=== PATIENT | female | born 1950 | race American Indian/Alaskan Native ===

== ENCOUNTER 2019-05-06 00:51 | Inpatient (IN) | payer MEDICARE ==
--- NOTE | 2019-05-06 02:07 | XRay Report ---
CHEST 1 VIEW INDICATION: cough COMPARISON: 06/23/2014 FINDINGS: Support devices: None Heart: Normal Lungs/Pleura: Left hemidiaphragm is very markedly elevated, more so than on the exam 4 years ago. No acute disease in the left upper lung. Right lung is clear. IMPRESSION: 1. Marked elevation of the left hemidiaphragm. 2. No acute pulmonary disease. Signer Name: Enrrique Dumont MD Signed: 05/06/2019 2:03 AM Workstation Name: [email or web address]
--- NOTE | 2019-05-06 02:36 | XRay Report ---
CHEST 1 VIEW INDICATION: blood tinged sputum COMPARISON: Earlier exam same day FINDINGS: Support devices: None Heart: Normal and unchanged Lungs/Pleura: With the patient erect, left hemidiaphragm is only moderately elevated. Slight atelecta sis in the left base. Right lung remains clear. IMPRESSION: 1. Moderate left diaphragm elevation. No acute pulmonary disease. Signer Name: Enrrique Dumont MD Signed: 05/06/2019 2:32 AM Workstation Name: [email or web address]
[2019-05-06 02:47] LABS: Basophils # (Auto) 0.1 K/mm3 (0.0-0.1); Basophils % (Auto) 0.9 % (0.0-1.8); Eosinophils # (Auto) 0.1 K/mm3 (0.0-0.4); Eosinophils % (Auto) 1.1 % (0.0-4.3); Hemoglobin 13.9 gm/dl (10.1-14.3); Lymphocytes # (Auto) 2.4 K/mm3 (1.2-5.4); Lymphocytes % (Auto) 26.9 % (13.4-35.0); Mean Corpuscular HGB Conc 33 % (30-34); Mean Corpuscular Volume 90 fl (79-97); Monocytes # (Auto) 0.5 K/mm3 (0.0-0.8); Monocytes % (Auto) 5.1 % (0.0-7.3); Red Blood Count 4.65 M/mm3 (3.65-5.03); Red Cell Distribution Width 15.3 % (13.2-15.2)
[2019-05-06 02:58] LABS: BUN/Creatinine Ratio 24; Blood Urea Nitrogen 19 mg/dL (7-17); Calcium 9.7 mg/dL (8.4-10.2); Hemolysis Index 108
[2019-05-06 03:04] LABS: Platelet Count 237 K/mm3 (140-440)
[2019-05-06] MEDS ORDERED: LORazepam 2 MG/ML VIAL IV ONE (03:22)
--- NOTE | 2019-05-06 04:26 | Cat Scan Report ---
CT angio chest INDICATION: hypoxia. TECHNIQUE: All CT scans at this location are performed using CT dose reduction for ALARA by means of automated e xposure control. Precontrast localizer images were obtained, followed by axial and 3-dimensional reconstruction images , performed at an independent workstation by the pet technologist after IV bolus contrast injection. COMPARISON: None available. FINDINGS: Steinmann, preston and axillae are negative. Thoracic aorta is unremarkable. Left hemidiaphragm is moderately elevated. Slight atelectasis in the left base. No acute pulmonary di sease. Prominent filling defects are demonstrated at the bifurcation of each main pulmonary artery, extendin g into multiple upper and lower lobe branches, consistent with pulmonary emboli. IMPRESSION: 1. Bilateral pulmonary emboli. This is a positive critical finding, noted at 0320 hours [address]OR[address] Dr. Walters was notified at 0321 hours C Signer Name: Enrrique Dumont MD Signed: 05/06/2019 4:22 AM Workstation Name: [id number]
[2019-05-06] MEDS ORDERED: HEPARIN 10,000 UNITS/10 ML VIAL IV ONE (05:20)
--- NOTE | 2019-05-06 05:27 | Emergency Department Report ---
ED General Adult HPI - General Chief complaint: Upper Respiratory Infection Stated complaint: MICHEAL Time Seen by Provider: 05/06/19 01:57 Source: EMS Mode of arrival: Stretcher Limitations: Altered Mental Status - History of Present Illness Initial comments: Patient is a 68-year-old Female with past medical history of insulin-dependent diabetes and dementia brought in by her secondary to shortness of breath. Patient has had a cough with some blood-tinged sputum since yesterday. Patient's states she's been afebrile but did have some increased work of breathing tonight and he called paramedics to bring her in. EMS reports that the O2 sat on their arrival was 89% she is placed on oxygen. O2 sat improved dramatically with oxygen. Patient is unable to give any significant history. States has been no nausea vomiting fevers or chills to his knowledge. - Related Data Home Medications Medication Instructions Recorded Confirmed Last Taken AtorvaSTATin [Lipitor] 10 mg PO QHS 05/06/19 05/06/19 05/05/19 Donepezil HCl [Donepezil HCl Odt] 10 mg PO QHS 05/06/19 05/06/19 Unknown LORazepam [Lorazepam] 0.5 mg PO BID 05/06/19 05/06/19 Unknown Melatonin [Melatonin 10MG CAP] 10 mg PO QHS 05/06/19 05/06/19 05/05/19 Metformin HCl [Metformin HCl ER] 500 mg PO Q2D 05/06/19 05/06/19 05/05/19 Allergies Allergy/AdvReac Type Severity Reaction Status Date / Time No Known Allergies Allergy Unverified 06/23/14 09:54 ED Review of Systems ROS: Stated complaint: MICHEAL Other details as noted in HPI Comment: Unobtainable due to pts medical conditions ED Past Medical Hx - Past Medical History Previous Medical History?: Yes Hx Congestive Heart Failure: No Hx Diabetes: Yes Hx Asthma: No Hx COPD: No Hx Dementia: Yes - Surgical History Past Surgical History?: No - Social History Smoking Status: Never Smoker - Medications Home Medications: Home Medications Medication Instructions Recorded Confirmed Last Taken Type AtorvaSTATin [Lipitor] 10 mg PO QHS 05/06/19 05/06/19 05/05/19 History Donepezil HCl [Donepezil HCl Odt] 10 mg PO QHS 05/06/19 05/06/19 Unknown History LORazepam [Lorazepam] 0.5 mg PO BID 05/06/19 05/06/19 Unknown History Melatonin [Melatonin 10MG CAP] 10 mg PO QHS 05/06/19 05/06/19 05/05/19 History Metformin HCl [Metformin HCl ER] 500 mg PO Q2D 05/06/19 05/06/19 05/05/19 History ED Physical Exam - General Limitations: Altered Mental Status General appearance: alert, in no apparent distress - Head Head exam: Present: atraumatic, normocephalic - Eye Eye exam: Present: normal appearance, PERRL, EOMI - ENT ENT exam: Present: mucous membranes moist - Neck Neck exam: Present: normal inspection - Respiratory Respiratory exam: Present: normal lung sounds bilaterally. Absent: respiratory distress, wheezes, rales, rhonchi - Cardiovascular Cardiovascular Exam: Present: normal rhythm, tachycardia. Absent: systolic murmur, diastolic murmur, rubs, gallop - GI/Abdominal GI/Abdominal exam: Present: soft, normal bowel sounds. Absent: distended, tenderness, guarding, rebound - Extremities Exam Extremities exam: Present: normal inspection - Back Exam Back exam: Present: normal inspection - Neurological Exam Neurological exam: Present: alert, altered - Psychiatric Psychiatric exam: Present: normal affect, normal mood - Skin Skin exam: Present: warm, dry, intact, normal color. Absent: rash ED Course Vital Signs 05/06/19 05/06/19 05/06/19 01:27 01:30 01:35 Pulse Rate 86 Respiratory 23 28 H 18 Rate Blood Pressure 127/70 O2 Sat by Pulse 92 98 Oximetry 05/06/19 05/06/19 05/06/19 01:45 02:01 02:15 Pulse Rate 86 83 89 Respiratory 20 24 19 Rate Blood Pressure 113/57 113/57 128/58 O2 Sat by Pulse 95 95 95 Oximetry 05/06/19 05/06/19 05/06/19 02:30 02:45 03:00 Pulse Rate 98 H 79 84 Respiratory 20 20 16 Rate Blood Pressure 127/67 121/63 132/57 O2 Sat by Pulse 97 96 99 Oximetry 05/06/19 05/06/19 05/06/19 03:15 03:57 04:00 Pulse Rate 83 108 H 103 H Respiratory 21 13 14 Rate Blood Pressure 132/57 114/55 O2 Sat by Pulse 98 97 99 Oximetry 05/06/19 05/06/19 05/06/19 04:15 04:31 04:45 Pulse Rate 103 H 116 H 106 H Respiratory 19 24 14 Rate Blood Pressure 118/69 124/77 130/67 O2 Sat by Pulse 96 96 95 Oximetry 05/06/19 05/06/19 05:00 05:15 Pulse Rate 102 H 104 H Respiratory 21 23 Rate Blood Pressure 117/69 120/64 O2 Sat by Pulse 95 Oximetry - Reevaluation(s) Reevaluation #1: 05/06/19 05:27 First attempt at admission to the hospitalist at 522. Hospitalist is actively in a CODE BLUE at this time. ED Medical Decision Making - Lab Data Result diagrams: 05/06/19 05:39 05/06/19 02:21 Lab Results 05/06/19 05/06/19 Range/Units 02:21 02:21 WBC 9.1 (4.5-11.0) K/mm3 RBC 4.65 (3.65-5.03) M/mm3 Hgb 13.9 (10.1-14.3) gm/dl Hct 42.0 (30.3-42.9) % MCV 90 (79-97) fl MCH 30 (28-32) pg MCHC 33 (30-34) % RDW 15.3 H (13.2-15.2) % Plt Count 237 (140-440) K/mm3 Lymph % (Auto) 26.9 (13.4-35.0) % Sutter % (Auto) 5.1 (0.0-7.3) % Eos % (Auto) 1.1 (0.0-4.3) % Baso % (Auto) 0.9 (0.0-1.8) % Lymph # 2.4 (1.2-5.4) K/mm3 Sutter # 0.5 (0.0-0.8) K/mm3 Eos # 0.1 (0.0-0.4) K/mm3 Baso # 0.1 (0.0-0.1) K/mm3 Seg Neutrophils % 66.0 (40.0-70.0) % Seg Neutrophils # 6.0 (1.8-7.7) K/mm3 Sodium 145 (137-145) mmol/L Potassium 4.7 (3.6-5.0) mmol/L Chloride 108.7 H (98-107) mmol/L Carbon Dioxide 24 (22-30) mmol/L Anion Gap 17 mmol/L BUN 19 H (7-17) mg/dL Creatinine 0.8 (0.7-1.2) mg/dL Estimated GFR > 60 ml/min BUN/Creatinine Ratio 24 % Glucose 103 H (65-100) mg/dL Calcium 9.7 (8.4-10.2) mg/dL - EKG Data -: EKG Interpreted by Ms EKG shows normal: sinus rhythm (rate 90), axis, intervals, QRS complexes, ST-T waves - EKG Data Interpretation: normal EKG - Radiology Data CHEST 1 VIEW INDICATION: blood tinged sputum COMPARISON: Earlier exam same day FINDINGS: Support devices: None Heart: Normal and unchanged Lungs/Pleura: With the patient erect, left hemidiaphragm is only moderately elevated. Slight atelectasis in the left base. Right lung remains clear. IMPRESSION: 1. Moderate left diaphragm elevation. No acute pulmonary disease. Signer Name: Enrrique Dumont MD Signed: 05/06/2019 2:32 AM Workstation Name: [id number] CT angio chest INDICATION: hypoxia. TECHNIQUE: All CT scans at this location are performed using CT dose reduction for ALARA by means of automated exposure control. Precontrast localizer images were obtained, followed by axial and 3-dimensional reconstruction images, performed at an independent workstation by the computer technologist after IV bolus contrast injection. COMPARISON: None available. FINDINGS: Steinmann, preston and axillae are negative. Thoracic aorta is unremarkable. Left hemidiaphragm is moderately elevated. Slight atelectasis in the left base. No acute pulmonary disease. Prominent filling defects are demonstrated at the bifurcation of each main pulmonary artery, extending into multiple upper and lower lobe branches, consistent with pulmonary emboli. IMPRESSION: 1. Bilateral pulmonary emboli. This is a positive critical finding, noted at [address] 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 Signer Name: Enrrique Dumont MD Signed: 05/06/2019 4:22 AM Workstation Name: [email or web address] - Medical Decision Making Patient's is a 68-year-old female past medical history of dementia who is presenting with hypoxia. Patient has had some cough with blood-tinged sputum. Patient's suspected that she may have a pneumonia patient has been afebrile. X-ray of the chest showed no acute findings. She does have a chronically elevated left diaphragm. The patient had a CT of the chest with angiography to rule out underlying pneumonia that was unable to be seen by x-ray as well as pulmonary embolus. Patient did have bilateral pulmonary embolus present. There did not appear to be any right heart strain. Patient was started on heparin and the patient be admitted to the hospitalist service. Critical Care Time: Yes (30) Critical care attestation.: If time is entered above; I have spent that time in minutes in the direct care of this critically ill patient, excluding procedure time. ED Disposition Clinical Impression: Bilateral pulmonary embolism, Hypoxia Disposition: OP ADMIT IP TO THIS HOSP Is pt being admited?: Yes Does the pt Need Aspirin: No Condition: Stable Time of Disposition: 06:01
[2019-05-06 05:52] LABS: Hematocrit 45.3 % (30.3-42.9); Hemoglobin 14.8 gm/dl (10.1-14.3)
[2019-05-06 06:03] LABS: INR 0.97 (0.87-1.13)
[2019-05-06 06:04] LABS: Partial Thromboplastin Time 27.7 Sec. (24.2-36.6)
[2019-05-06] MEDS: HEPARIN/ 0.45% NACL DRIP 25,000 UNIT/500 ML BAG IV SCH ×2 (06:06→15:45)
--- NOTE | 2019-05-06 11:04 | History and Physical Report ---
History of Present Illness Date of examination: 05/06/19 Date of admission: 05/06/19 06:53 Chief complaint: coughing with traces of blood History of present illness: Patient is 68 yo with diabetes, dementia. She was brought to ED because of coughing tinged with bright red blood for 1 day. Patient has dementia so cannot give much history. She was evaluated in ED, and CT revealed bilateral pulmonary embolism. patient started on Heparin drip. Minimal History obtained from at bedside. states patient did not have fever or nausea or vomiting. Will admit Past History Past Medical History: diabetes, other (Dementia) Past Surgical History: No surgical history Social history: lives with family, full code. denies: smoking, alcohol abuse Family history: diabetes Medications and Allergies Allergies Allergy/AdvReac Type Severity Reaction Status Date / Time No Known Allergies Allergy Unverified 06/23/14 09:54 Home Medications Medication Instructions Recorded Confirmed Last Taken Type AtorvaSTATin 10 mg PO QHS 05/06/19 05/06/19 05/05/19 History Donepezil HCl [Donepezil HCl Odt] 10 mg PO QHS 05/06/19 05/06/19 Unknown History LORazepam [Lorazepam] 0.5 mg PO BID 05/06/19 05/06/19 Unknown History Melatonin [Melatonin 10MG CAP] 10 mg PO QHS 05/06/19 05/06/19 05/05/19 History Metformin HCl [Metformin HCl ER] 500 mg PO Q2D 05/06/19 05/06/19 05/05/19 History Apixaban [Eliquis] 5 mg PO BID 30 Days #60 tablet 05/08/19 Unknown Rx Apixaban [Eliquis] 10 mg PO BID 7 Days #14 tablet 05/08/19 Unknown Rx Active Meds: Active Medications Heparin Sodium/Sodium Chloride (Heparin/ 0.45% Nacl-25,000 Unit/500 Ml) 25,000 unit in 500 mls @ 16 mls/hr IV TITR [facility]; Protocol Last Admin: 05/06/19 06:06 Dose: 800 units/hr, 16 mls/hr Documented by: Review of Systems ROS unobtainable: due to mental status (Patient has dementia) Exam - Physical Exam Narrative exam: Gen: Not in acute distress, lying in bed, On Oxygen by NC HEENT: Normocephalic, atraumatic Neck: supple, no JVD Heart: S1 and S2 reg, no murmurs, rubs or gallop Lungs: Decreased breath sounds bilat, bilateral rhonchi, wheezing Abd: soft, non tender , non distended, normal BS Ext: No edema, no clubbing, no cyanosis Neuro: Awake,alert, oriented X 3, moves all ext - Constitutional Vitals: Temp Pulse Resp BP Pulse Ox 88 17 117/62 95 05/06/19 09:24 05/06/19 09:24 05/06/19 09:24 05/06/19 09:24 Results - Labs CBC & Chem 7: 05/08/19 06:41 05/07/19 05:40 Labs: Abnormal lab results 05/06/19 05/06/19 05/06/19 Range/Units 02:21 02:21 05:39 Hgb 14.8 H (10.1-14.3) gm/dl Hct 45.3 H (30.3-42.9) % RDW 15.3 H (13.2-15.2) % Chloride 108.7 H (98-107) mmol/L BUN 19 H (7-17) mg/dL Glucose 103 H (65-100) mg/dL Assessment and Plan Bilateral pulmonary embolism Admit Heparin drip Obtain Doppler legs Consult Hematology consult Pulmonology Diabetes mellitus type 2 Accuchek q ac and hs check A1C Dementia Supportive care Does not talk much as per Immobile as per Full code status
[2019-05-06] MEDS ORDERED: ALBUTEROL 2.5 MG/3 ML NEBU IH PRN (11:06)
[2019-05-06] MEDS ORDERED: ONDANSETRON 4 MG/2 ML INJ IV PRN (11:06)
[2019-05-06] MEDS ORDERED: MORPHINE 2 MG/1 ML INJ IV PRN (11:06)
[2019-05-06] MEDS ORDERED: ACETAMINOPHEN 325 MG TAB PO PRN (11:06)
--- NOTE | 2019-05-06 16:07 | Vascular Lab Report ---
DUPLEX DOPPLER LOWER EXTREMITY VEINS, BILATERAL INDICATION: Pulmonary embolism, immobility. TECHNIQUE: Duplex doppler imaging was performed through the veins of both lower extremities using ve nous compression and other maneuvers. COMPARISON: No relevant prior imaging study available. FINDINGS: Right Common femoral vein: Negative. Right Superficial femoral vein: Negative. Right Popliteal vein: Negative. Right Calf veins: Negative. Left Common femoral vein: Negative. Left Superficial femoral vein: Negative. Left Popliteal vein: Negative. Left Calf veins: Negative. Additional findings: None.. IMPRESSION: No sonographic evidence for DVT in either lower extremity. Signer Name: Beni Mills Jr, MD Signed: 05/06/2019 4:03 PM Workstation Name: [id number]
[2019-05-06] MEDS: MELATONIN 5 MG TAB PO SCH (21:32)
[2019-05-06] MEDS: DONEPEZIL 10 MG TAB PO SCH (21:32)
[2019-05-06] MEDS: LORazepam 0.5 MG TAB PO SCH (21:32)
[2019-05-06] MEDS ORDERED: NON-FORMULARY EACH (Melatonin [Melatonin 10mg Cap] 10 MG) PO SCH (22:00)
[2019-05-06] MEDS ORDERED: DONEPEZIL HCL 10 MG PO SCH (22:00)
[2019-05-07 06:44] LABS: Basophils # (Auto) 0.1 K/mm3 (0.0-0.1); Basophils % (Auto) 0.9 % (0.0-1.8); Eosinophils % (Auto) 0.5 % (0.0-4.3); Hematocrit 39.3 % (30.3-42.9); Hemoglobin 13.1 gm/dl (10.1-14.3); Lymphocytes # (Auto) 2.6 K/mm3 (1.2-5.4); Lymphocytes % (Auto) 29.8 % (13.4-35.0); Mean Corpuscular HGB Conc 33 % (30-34); Mean Corpuscular Volume 90 fl (79-97); Monocytes # (Auto) 0.5 K/mm3 (0.0-0.8); Monocytes % (Auto) 5.9 % (0.0-7.3); Platelet Count 216 K/mm3 (140-440); Red Blood Count 4.37 M/mm3 (3.65-5.03); Red Cell Distribution Width 15.5 % (13.2-15.2)
[2019-05-07 07:09] LABS: Blood Urea Nitrogen 17 mg/dL (7-17)
[2019-05-07 07:38] LABS: BUN/Creatinine Ratio 21; Calcium 8.7 mg/dL (8.4-10.2); Hemolysis Index 7
[2019-05-07] MEDS: LORazepam 0.5 MG TAB PO SCH ×2 (09:50→22:08)
--- NOTE | 2019-05-07 15:27 | Consultation ---
History of Present Illness Consult date: 05/07/19 Requesting physician: CHINMAY ANDRE Reason for consult: pulmonary embolism History of present illness: 68 y/o female with dementia, immobile, not conversive admitted with bilateral pulmonary emboli after coming to ED for hypoxemia and dypsnea. CTA shown to have bilateral pulmonary emboli but dopplers are negative. Past History Past Medical History: diabetes, hyperlipidemia, other (Dementia) Past Surgical History: No surgical history Social history: lives with family, full code. denies: smoking, alcohol abuse Family history: diabetes Medications and Allergies Allergies Allergy/AdvReac Type Severity Reaction Status Date / Time No Known Allergies Allergy Unverified 06/23/14 09:54 Home Medications Medication Instructions Recorded Confirmed Last Taken Type AtorvaSTATin [Lipitor] 10 mg PO QHS 05/06/19 05/06/19 05/05/19 History Donepezil HCl [Donepezil HCl Odt] 10 mg PO QHS 05/06/19 05/06/19 Unknown History LORazepam [Lorazepam] 0.5 mg PO BID 05/06/19 05/06/19 Unknown History Melatonin [Melatonin 10MG CAP] 10 mg PO QHS 05/06/19 05/06/19 05/05/19 History Metformin HCl [Metformin HCl ER] 500 mg PO Q2D 05/06/19 05/06/19 05/05/19 History Active Meds: Active Medications Acetaminophen (Tylenol) 650 mg PO Q4H PRN PRN Reason: Pain MILD(1-3)/Fever >100.5/GARCIA Albuterol (Proventil) 2.5 mg IH Q4HRT PRN PRN Reason: Shortness Of Breath Atorvastatin Calcium (Atorvastatin) 10 mg PO QHS [facility] Last Admin: 05/06/19 21:32 Dose: 10 mg Documented by: Donepezil HCl (Aricept) 10 mg PO QHS [facility] Last Admin: 05/06/19 21:32 Dose: 10 mg Documented by: Heparin Sodium/Sodium Chloride (Heparin/ 0.45% Nacl-25,000 Unit/500 Ml) 25,000 unit in 500 mls @ 16 mls/hr IV TITR [facility]; Protocol Last Titration: 05/07/19 09:21 Dose: 600 units/hr, 12 mls/hr Documented by: Lorazepam (Ativan) 0.5 mg PO BID [facility] Last Admin: 05/07/19 09:50 Dose: Not Given Documented by: Melatonin (Melatonin) 10 mg PO HS [facility] Last Admin: 05/06/19 21:32 Dose: 10 mg Documented by: Morphine Sulfate (Morphine) 2 mg IV Q4H PRN PRN Reason: Pain, Moderate (4-6) Ondansetron HCl (Zofran) 4 mg IV Q8H PRN PRN Reason: Nausea And Vomiting Sodium Chloride (Sodium Chloride Flush Syringe 10 Ml) 10 ml IV BID [facility] Last Admin: 05/07/19 09:50 Dose: 10 ml Documented by: Sodium Chloride (Sodium Chloride Flush Syringe 10 Ml) 10 ml IV PRN PRN PRN Reason: LINE FLUSH Review of Systems All systems: negative Physical Examination Vital signs: Vital Signs Resp 23 05/06/19 01:27 Results - Laboratory Findings CBC and BMP: 05/08/19 06:41 05/07/19 05:40 PT/INR, D-dimer PT 13.0 Sec. (12.2-14.9) 05/06/19 05:39 INR 0.97 (0.87-1.13) 05/06/19 05:39 Abnormal lab findings: Abnormal Labs 05/06/19 05/06/19 05/06/19 02:21 02:21 05:39 Hgb 14.8 H Hct 45.3 H RDW 15.3 H Heparin Anti-Xa Level Chloride 108.7 H BUN 19 H Glucose 103 H POC Glucose 05/06/19 05/06/19 05/06/19 14:37 15:38 20:51 Hgb Hct RDW Heparin Anti-Xa Level 0.83 H Chloride BUN Glucose POC Glucose 136 H 119 H 05/06/19 05/07/19 05/07/19 20:58 05:40 05:40 Hgb Hct RDW 15.5 H Heparin Anti-Xa Level 0.76 H Chloride BUN Glucose 108 H POC Glucose 05/07/19 05/07/19 05:40 08:03 Hgb Hct RDW Heparin Anti-Xa Level 0.92 H Chloride BUN Glucose POC Glucose 116 H - Diagnostic Findings Chest x-ray: image reviewed CT scan - chest: image reviewed Assessment and Plan 68 y/o female with bilateral Pulmonary Emboli 1. Suggest echo to evaluate right heart strain 2. Agree with heparin drip 3. Follow up heme onc recs, given history and current clinical state, will need indefinite anticoagulation 4. Pending ease of administration and cost for patient, suggest starting oral anticoagulation soon. 5. Wean FiO2 for sats >88%. Patient not mobile so if weaned off, will not need walk test.
[2019-05-07] MEDS: DONEPEZIL 10 MG TAB PO SCH (22:08)
[2019-05-07] MEDS: MELATONIN 5 MG TAB PO SCH (22:08)
[2019-05-07] MEDS: HEPARIN/ 0.45% NACL DRIP 25,000 UNIT/500 ML BAG IV SCH (22:16)
--- NOTE | 2019-05-08 08:33 | Event Note ---
Date: 05/08/19 [id number] PE Heparin option of oral eliquis vs xarelto vs coumadin would need jail anticoagulation
[2019-05-08 10:00] LABS: Hematocrit 39.8 % (30.3-42.9); Hemoglobin 13.1 gm/dl (10.1-14.3)
--- NOTE | 2019-05-08 10:38 | Consultation ---
History of Present Illness - Reason for Consult Consult date: 05/08/19 pulmonary embolism - History of Present Illness Patient presents with a history of subjective shortness of breath and per h usband, coughing up red sputum which is now resolved. Patient underwent a CTA of the chest which demonstrates small bilateral predominantly segmental pulmonary emboli without evidence of right heart strain. At home, the patient is predominantly bedbound per . Past History Past Medical History: diabetes, hyperlipidemia, other (Dementia) Past Surgical History: No surgical history Social history: lives with family, full code. denies: smoking, alcohol abuse Family history: diabetes Medications and Allergies Allergies Allergy/AdvReac Type Severity Reaction Status Date / Time No Known Allergies Allergy Unverified 06/23/14 09:54 Home Medications Medication Instructions Recorded Confirmed Last Taken Type AtorvaSTATin [Lipitor] 10 mg PO QHS 05/06/19 05/06/19 05/05/19 History Donepezil HCl [Donepezil HCl Odt] 10 mg PO QHS 05/06/19 05/06/19 Unknown History LORazepam [Lorazepam] 0.5 mg PO BID 05/06/19 05/06/19 Unknown History Melatonin [Melatonin 10MG CAP] 10 mg PO QHS 05/06/19 05/06/19 05/05/19 History Metformin HCl [Metformin HCl ER] 500 mg PO Q2D 05/06/19 05/06/19 05/05/19 History Active Meds: Active Medications Acetaminophen (Tylenol) 650 mg PO Q4H PRN PRN Reason: Pain MILD(1-3)/Fever >100.5/GARCIA Albuterol (Proventil) 2.5 mg IH Q4HRT PRN PRN Reason: Shortness Of Breath Atorvastatin Calcium (Atorvastatin) 10 mg PO QHS [facility] Last Admin: 05/07/19 22:08 Dose: 10 mg Documented by: Donepezil HCl (Aricept) 10 mg PO QHS [facility] Last Admin: 05/07/19 22:08 Dose: 10 mg Documented by: Heparin Sodium/Sodium Chloride (Heparin/ 0.45% Nacl-25,000 Unit/500 Ml) 25,000 unit in 500 mls @ 16 mls/hr IV TITR [facility]; Protocol Last Admin: 05/07/19 22:16 Dose: 600 units/hr, 12 mls/hr Documented by: Lorazepam (Ativan) 0.5 mg PO BID [facility] Last Admin: 05/07/19 22:08 Dose: 0.5 mg Documented by: Melatonin (Melatonin) 10 mg PO HS [facility] Last Admin: 05/07/19 22:08 Dose: 10 mg Documented by: Morphine Sulfate (Morphine) 2 mg IV Q4H PRN PRN Reason: Pain, Moderate (4-6) Ondansetron HCl (Zofran) 4 mg IV Q8H PRN PRN Reason: Nausea And Vomiting Sodium Chloride (Sodium Chloride Flush Syringe 10 Ml) 10 ml IV BID [facility] Last Admin: 05/07/19 22:08 Dose: 10 ml Documented by: Sodium Chloride (Sodium Chloride Flush Syringe 10 Ml) 10 ml IV PRN PRN PRN Reason: LINE FLUSH Review of Systems All systems: negative Exam - Constitutional Vitals: Temp Pulse Resp BP Pulse Ox 98.0 F 88 16 110/71 99 05/08/19 08:53 05/08/19 08:53 05/08/19 08:53 05/08/19 08:53 05/08/19 08:53 General appearance: Present: no acute distress - EENT Eyes: Present: EOM intact - Neck Neck: Present: supple, normal ROM - Respiratory Respiratory effort: normal - Abdominal General gastrointestinal: Present: deferred Female genitourinary: Present: deferred - Rectal Rectal Exam: deferred Results - Labs CBC & Chem 7: 05/08/19 06:41 05/07/19 05:40 Labs: Abnormal lab results 05/07/19 Range/Units 21:30 POC Glucose 154 H (70-105) - Imaging and Cardiology CT scan - chest: image reviewed Assessment and Plan Given the patient's physical condition, the patient will need to be placed on lifelong oral anticoagulation. She does not appear to be in respiratory distress secondary to her small pulmonary emboli. Patient does not need to undergo any interventions at this point.
--- NOTE | 2019-05-08 12:20 | Consultation ---
REFERRED BY: Binu Vidal MD REASON FOR CONSULTATION: Pulmonary embolism. HISTORY OF PRESENT ILLNESS: I saw the patient, a 68-year-old female in the medical floor. The patient's was present in the room. The patient was admitted because of hemoptysis. The patient has a history of diabetes, dementia. She is bedbound. She has been having cough and there was hemoptysis. Most of the information obtained from the , the patient is nonverbal, says talks minimally. Radiology showed bilateral PE. I have been asked to evaluate the patient. Heparin drip has been started. REVIEW OF SYSTEMS: Not reliable apart from hemoptysis. No other bleeding. PAST MEDICAL HISTORY: Diabetes and dementia. PAST SURGICAL HISTORY: Nil significant. SOCIAL HISTORY: Lives with family members. FAMILY HISTORY: Diabetes. ALLERGIES: None. HOME MEDICATIONS: Include Lipitor. PRESENT MEDICATIONS: Include nebulizers, melatonin and Zofran. PHYSICAL EXAMINATION: VITAL SIGNS: Temperature 98, pulse 95, respirations 16, BP 124/52. HEENT: No pallor, no icterus. NECK: No neck lymph nodes. HEART: S1, S2. LUNGS: Clear to auscultation anteriorly. ABDOMEN: Soft. EXTREMITIES: No edema. LABORATORY DATA: White cell 8.8, hemoglobin 13, MCV 90, platelet 216. Potassium 3.7, creatinine 0.8, calcium 8.7. RADIOLOGY: Leg Doppler, no PE. Chest shows bilateral PE, bifurcation of each main pulmonary artery, extending into multiple upper and lower lobe branches. ASSESSMENT: 1. Bilateral pulmonary embolism. 2. Hemoptysis. 3. No deep venous thrombosis in the leg. 4. The patient is bedbound and this may have a role. 5. History of dementia. PLAN: The patient is on heparin drip. Option of oral anticoagulation with Eliquis, Xarelto or Coumadin. As her immobilization/bedbound has a role in the PE, she would need long-term anticoagulation to prevent same. Option of Eliquis loading dose and then 5 q. 12 hours for a few months and monitor CT results, 2.5 Eliquis q. 12 as suggested. JOB# [id number] NM/NTS
[2019-05-08] MEDS: LORazepam 0.5 MG TAB PO SCH (12:21)
[2019-05-08 13:18] VITALS: BP 111/61
--- NOTE | 2019-05-08 16:33 | Progress Note ---
Assessment and Plan 68 y/o female with bilateral Pulmonary Emboli 2. Agree with heparin drip 3. Follow up heme onc recs, given history and current clinical state, will need indefinite anticoagulation 4. Pending ease of administration and cost for patient, suggest starting oral anticoagulation soon. 5. Wean FiO2 for sats >88%. Patient not mobile so if weaned off, will not need walk test. No further pulm recommendations. Will see as needed. Subjective Date of service: 05/08/19 Interval history: IR consulted by [facility] today. not sure why. echo done and per them no evidence of right heart strain. Heme has seen as well. Remains on heparin drip. Objective Vital Signs - 12hr 05/08/19 05/08/19 05/08/19 06:58 08:53 10:00 Temperature 97.6 F 98.0 F Pulse Rate 94 H 88 Respiratory 18 16 Rate Blood Pressure 109/68 110/71 O2 Sat by Pulse 99 99 98 Oximetry 05/08/19 13:00 Temperature 98.2 F Pulse Rate 90 Respiratory 18 Rate Blood Pressure 111/61 O2 Sat by Pulse 100 Oximetry CBC and BMP: 05/08/19 06:41 05/07/19 05:40 ABG, PT/INR, D-dimer: PT/INR, D-dimer PT 13.0 Sec. (12.2-14.9) 05/06/19 05:39 INR 0.97 (0.87-1.13) 05/06/19 05:39 Abnormal lab findings: Abnormal Labs 05/06/19 05/06/19 05/06/19 02:21 02:21 05:39 Hgb 14.8 H Hct 45.3 H RDW 15.3 H Heparin Anti-Xa Level Chloride 108.7 H BUN 19 H Glucose 103 H POC Glucose 05/06/19 05/06/19 05/06/19 14:37 15:38 20:51 Hgb Hct RDW Heparin Anti-Xa Level 0.83 H Chloride BUN Glucose POC Glucose 136 H 119 H 05/06/19 05/07/19 05/07/19 20:58 05:40 05:40 Hgb Hct RDW 15.5 H Heparin Anti-Xa Level 0.76 H Chloride BUN Glucose 108 H POC Glucose 05/07/19 05/07/19 05/07/19 05:40 08:03 21:30 Hgb Hct RDW Heparin Anti-Xa Level 0.92 H Chloride BUN Glucose POC Glucose 116 H 154 H
--- NOTE | 2019-05-08 16:52 | Discharge Summary ---
Providers - Providers Date of Admission: 05/06/19 06:53 Date of discharge: 05/08/19 Attending physician: CHINMAY ANDRE 05/06/19 11:06 Consult to Physician [CONS] Routine Comment: Consulting Provider: FRANCESCO SIMONS Physician Instructions: Reason For Exam: Pulmonary embolism 05/06/19 13:46 Consult to Physician [CONS] Routine Comment: Consulting Provider: DUSTIN ESPAÑA Physician Instructions: Reason For Exam: bilateral pulmonary embolism 05/08/19 09:25 Consult to Physician [CONS] Routine Comment: Consulting Provider: SHERRY OBRIEN Physician Instructions: Reason For Exam: bilateral pulm embolism Primary care physician: SAGE MARTI Hospitalization Condition: Fair Disposition: DC-01 TO HOME OR SELFCARE Exam - Constitutional Vitals: Temp Pulse Resp BP Pulse Ox 98.2 F 90 18 111/61 100 05/08/19 13:00 05/08/19 13:00 05/08/19 13:00 05/08/19 13:00 05/08/19 13:00 Plan Activity: advance as tolerated Diet: low fat, low cholesterol, low salt, diabetic, other (Pureed diet) Plan of Treatment: 1.Follow up with PCP in 1 week. 2.Follow up with Dr. Simons, Hematology in 1 week Follow up with: SAGE MARTI MD [Primary Care Provider] - 7 Days Prescriptions: Apixaban [Eliquis] 10 mg PO BID 7 Days #14 tablet Apixaban [Eliquis] 5 mg PO BID 30 Days #60 tablet
[2019-05-08] MEDS ORDERED: APIXABAN 5 MG TAB PO SCH (17:00)
== END 2019-05-08 20:40 | disposition home or self-care (01) | DRG 176 ==
LOC: ED 00:51 → 4A 06:53
PROVIDERS: ADMIT Internal Medicine; ATTEND Internal Medicine
DX: I26.99 Other pulmonary embolism without acute cor pulmonale (principal); R04.2 Hemoptysis; E11.9 Type 2 diabetes mellitus without complications; F03.90 Unspecified dementia, unspecified severity, without behavioral disturbance, psychotic disturbance, mood disturbance, and anxiety; R09.02 Hypoxemia; E78.5 Hyperlipidemia, unspecified; Z83.3 Family history of diabetes mellitus; Z74.01 Bed confinement status; Z79.899 Other long term (current) drug therapy
CPT/HCPCS: 36415; 71045; 71275; 80048; 82962; 83036; 85014; 85018; 85025; 85049; 85520; 85610; 85730; 87040; 93005; 93010; 93306; 93970; 94760; 96374; G0378; A9270-GY; J1644; J2060; Q9967

== ENCOUNTER 2020-01-08 14:35 | Inpatient (IN) | payer MEDICARE ==
[2020-01-08] MEDS ORDERED: SODIUM CHLORIDE 0.9% 1000 ML IV SOLN IV ONE (16:15)
[2020-01-08] MEDS ORDERED: cefTRIAXone/NS 1 GM/50 ML 1 GM/50 ML BAG IV ONE (16:21)
--- NOTE | 2020-01-08 16:43 | XRay Report ---
CHEST 1 VIEW INDICATION: suspected sepsis. COMPARISON: 05/06/2019. FINDINGS: Support devices: None. Heart: Normal. Lungs/Pleura: No acute pulmonary or pleural findings. There is persistent elevation of the left hemidiaphragm. Diffuse, subjective osteopenia is noted. IMPRESSION: 1. No acute findings. Signer Name: Haroldo Sutton MD Signed: 01/08/2020 4:39 PM Workstation Name: [id number]
[2020-01-08] MEDS ORDERED: cefTRIAXone/NS 1 GM/50 ML 1 GM/50 ML BAG IV SCH (17:00)
--- NOTE | 2020-01-08 17:05 | Emergency Department Report ---
ED Altered Mental Status HPI - General Chief Complaint: Altered Mental Status Stated Complaint: AMS/LOW BP Time Seen by Provider: 01/08/20 16:10 Source: EMS Mode of arrival: Stretcher Limitations: Altered Mental Status, Physical Limitation - History of Present Illness Initial Comments: Patient is a 69-year-old F Welsh female with a past medical history of advanced dementia diabetes and pulmonary embolus who is presenting with some worsening of her mental status and hypotension. Patient according to home health nurse was less active and blood pressure was low. Patient had a low- grade temperature on arrival. Is unknown whether the patient is had cough congestion nausea vomiting at her home. Patient is non- verbal here in the emergency department. - Related Data Home Medications Medication Instructions Recorded Confirmed Last Taken AtorvaSTATin 10 mg PO QHS 05/06/19 05/06/19 05/05/19 Donepezil HCl [Donepezil HCl Odt] 10 mg PO QHS 05/06/19 05/06/19 Unknown LORazepam [Lorazepam] 0.5 mg PO BID 05/06/19 05/06/19 Unknown Melatonin [Melatonin 10MG CAP] 10 mg PO QHS 05/06/19 05/06/19 05/05/19 Metformin HCl [Metformin HCl ER] 500 mg PO Q2D 05/06/19 05/06/19 05/05/19 Previous Rx's Medication Instructions Recorded Last Taken Type Apixaban [Eliquis] 5 mg PO BID 30 Days #60 tablet 05/08/19 Unknown Rx Apixaban [Eliquis] 10 mg PO BID 7 Days #14 tablet 05/08/19 Unknown Rx Allergies Allergy/AdvReac Type Severity Reaction Status Date / Time No Known Allergies Allergy Unverified 06/23/14 09:54 ED Review of Systems ROS: Stated complaint: AMS/LOW BP Other details as noted in HPI Comment: All other systems reviewed and negative ED Past Medical Hx - Past Medical History Previous Medical History?: Yes Hx Congestive Heart Failure: No Hx Diabetes: Yes Hx Asthma: No Hx COPD: No Hx Dementia: Yes - Surgical History Past Surgical History?: No - Social History Smoking Status: Never Smoker Substance Use Type: None - Medications Home Medications: Home Medications Medication Instructions Recorded Confirmed Last Taken Type AtorvaSTATin 10 mg PO QHS 05/06/19 05/06/19 05/05/19 History Donepezil HCl [Donepezil HCl Odt] 10 mg PO QHS 05/06/19 05/06/19 Unknown History LORazepam [Lorazepam] 0.5 mg PO BID 05/06/19 05/06/19 Unknown History Melatonin [Melatonin 10MG CAP] 10 mg PO QHS 05/06/19 05/06/19 05/05/19 History Metformin HCl [Metformin HCl ER] 500 mg PO Q2D 05/06/19 05/06/19 05/05/19 History Apixaban [Eliquis] 5 mg PO BID 30 Days #60 tablet 05/08/19 Unknown Rx Apixaban [Eliquis] 10 mg PO BID 7 Days #14 tablet 05/08/19 Unknown Rx ED Physical Exam - General Limitations: Altered Mental Status, Physical Limitation General appearance: alert, in no apparent distress - Head Head exam: Present: atraumatic, normocephalic - Eye Eye exam: Present: normal appearance, PERRL, EOMI - ENT ENT exam: Present: mucous membranes moist - Neck Neck exam: Present: normal inspection - Respiratory Respiratory exam: Present: normal lung sounds bilaterally. Absent: respiratory distress, wheezes, rales, rhonchi - Cardiovascular Cardiovascular Exam: Present: normal rhythm, tachycardia. Absent: systolic murmur, diastolic murmur, rubs, gallop - GI/Abdominal GI/Abdominal exam: Present: soft, normal bowel sounds. Absent: distended, tenderness, guarding - Extremities Exam Extremities exam: Present: normal inspection - Back Exam Back exam: Present: normal inspection - Neurological Exam Neurological exam: Present: altered - Psychiatric Psychiatric exam: Present: normal affect, normal mood - Skin Skin exam: Present: warm, dry, intact, normal color. Absent: rash - Level of Consciousness 1a. Level of Consciousness: arousable/minor stimuli - LOC Questions 1b. LOC Questions: aphasic - LOC Command 1c. LOC Commands: performs no tasks correctly - Best Gaze 2. Best Gaze: normal - Visual 3. Visual: no visual loss - Facial Palsy 4. Facial Palsy: normal symmetrical movement - Motor Arm 5a. Motor Arm Left: drift 5b. Motor Arm Right: drift - Motor Leg 6a. Motor Leg Left: drift 6b. Motor Leg Right: drift - Limb Ataxia 7. Limb Ataxia: absent - Sensory 8. Sensory: normal - Best Language 9. Best Language: mute/global aphasia - Dysarthria 10. Dysarthria: normal - Extinction and Inattention 11. Extinction/Inattention: no abnormality - Scoring Total Score: 12 Stroke Severity: Moderate Stroke ED Course Vital Signs 01/08/20 01/08/20 01/08/20 15:30 15:50 15:55 Temperature 99.6 F Pulse Rate 125 H 127 H 125 H Respiratory 11 L 13 17 Rate Blood Pressure 123/74 123/74 Blood Pressure 98/59 [Left] O2 Sat by Pulse 99 99 98 Oximetry 01/08/20 01/08/20 01/08/20 16:30 17:30 18:59 Temperature Pulse Rate 126 H 118 H 118 H Respiratory 27 H 20 16 Rate Blood Pressure 103/67 114/72 106/65 Blood Pressure [Left] O2 Sat by Pulse 70 L 100 99 Oximetry 01/08/20 19:00 Temperature Pulse Rate 118 H Respiratory 24 Rate Blood Pressure 107/57 Blood Pressure [Left] O2 Sat by Pulse 97 Oximetry - Lab Data Result diagrams: 01/08/20 16:29 01/08/20 16:29 Lab Results 01/08/20 01/08/20 01/08/20 Range/Units 16:29 16:29 16:29 WBC 13.5 H (4.5-11.0) K/mm3 RBC 4.23 (3.65-5.03) M/mm3 Hgb 12.6 (10.1-14.3) gm/dl Hct 39.7 (30.3-42.9) % MCV 94 (79-97) fl MCH 30 (28-32) pg MCHC 32 (30-34) % RDW 15.5 H (13.2-15.2) % Plt Count 208 (140-440) K/mm3 Add Manual Diff Complete Total Counted 100 Seg Neuts % (Manual) 85.0 H (40.0-70.0) % Band Neutrophils % 0 % Lymphocytes % (Manual) 11.0 L (13.4-35.0) % Reactive Lymphs % (Man) 0 % Monocytes % (Manual) 3.0 (0.0-7.3) % Eosinophils % (Manual) 1.0 (0.0-4.3) % Basophils % (Manual) 0 (0.0-1.8) % Metamyelocytes % 0 % Myelocytes % 0 % Promyelocytes % 0 % Blast Cells % 0 % Nucleated RBC % Not Reportable Seg Neutrophils # Man 11.5 H (1.8-7.7) K/mm3 Band Neutrophils # 0.0 K/mm3 Lymphocytes # (Manual) 1.5 (1.2-5.4) K/mm3 Abs React Lymphs (Man) 0.0 K/mm3 Monocytes # (Manual) 0.4 (0.0-0.8) K/mm3 Eosinophils # (Manual) 0.1 (0.0-0.4) K/mm3 Basophils # (Manual) 0.0 (0.0-0.1) K/mm3 Metamyelocytes # 0.0 K/mm3 Myelocytes # 0.0 K/mm3 Promyelocytes # 0.0 K/mm3 Blast Cells # 0.0 K/mm3 WBC Morphology Not Reportable Hypersegmented Neuts Not Reportable Hyposegmented Neuts Not Reportable Hypogranular Neuts Not Reportable Smudge Cells Not Reportable Toxic Granulation Not Reportable Toxic Vacuolation Not Reportable Dohle Bodies Not Reportable Pelger-Huet Anomaly Not Reportable Lata Rods Not Reportable Platelet Estimate Not Reportable Clumped Platelets Not Reportable Plt Clumps, EDTA Not Reportable Large Platelets Not Reportable Giant Platelets Not Reportable Platelet Satelliting Not Reportable Plt Morphology Comment Not Reportable RBC Morphology Normal Dimorphic RBCs Not Reportable Polychromasia Not Reportable Hypochromasia Not Reportable Poikilocytosis Not Reportable Anisocytosis Not Reportable Microcytosis Not Reportable Macrocytosis Not Reportable Spherocytes Not Reportable Pappenheimer Bodies Not Reportable Sickle Cells Not Reportable Target Cells Not Reportable Tear Drop Cells Not Reportable Ovalocytes Not Reportable Helmet Cells Not Reportable [place] Bodies Not Reportable [place] Rings Not Reportable Leonidas Cells Not Reportable Bite Cells Not Reportable Crenated Cell Not Reportable Elliptocytes Not Reportable Acanthocytes (Spur) Not Reportable Rouleaux Not Reportable Hemoglobin C Crystals Not Reportable Schistocytes Not Reportable Malaria parasites Not Reportable Gideon Bodies Not Reportable Hem Pathologist Commnt No Sodium 161 H* (137-145) mmol/L Potassium 3.8 (3.6-5.0) mmol/L Chloride 125.5 H (98-107) mmol/L Carbon Dioxide 20 L (22-30) mmol/L Anion Gap 19 mmol/L BUN 30 H (7-17) mg/dL Creatinine 1.1 (0.6-1.2) mg/dL Estimated GFR 59 ml/min BUN/Creatinine Ratio 27 % Glucose 115 H (65-100) mg/dL Lactic Acid 2.20 H* (0.7-2.0) mmol/L Calcium 7.9 L (8.4-10.2) mg/dL Total Bilirubin 0.40 (0.1-1.2) mg/dL AST 48 H (5-40) units/L ALT 33 (7-56) units/L Alkaline Phosphatase 44 (35-129) units/L Total Protein 6.5 (6.3-8.2) g/dL Albumin 2.5 L (3.9-5) g/dL Albumin/Globulin Ratio 0.6 % Urine Color (Yellow) Urine Turbidity (Clear) Urine pH (5.0-7.0) Ur Specific [place] (1.003-1.030) Urine Protein (Negative) mg/dL Urine Glucose (UA) (Negative) mg/dL Urine Ketones (Negative) mg/dL Urine Blood (Negative) Urine Nitrite (Negative) Urine Bilirubin (Negative) Urine Urobilinogen (<2.0) mg/dL Ur Leukocyte Esterase (Negative) Urine WBC (Auto) (0.0-6.0) /HPF Urine RBC (Auto) (0.0-6.0) /HPF U Epithel Cells (Auto) (0-13.0) /HPF Urine Bacteria (Auto) (Negative) /HPF Urine Mucus /HPF Urine Yeast (Budding) /HPF 01/08/20 01/08/20 Range/Units 19:02 Unknown WBC (4.5-11.0) K/mm3 RBC (3.65-5.03) M/mm3 Hgb (10.1-14.3) gm/dl Hct (30.3-42.9) % MCV (79-97) fl MCH (28-32) pg MCHC (30-34) % RDW (13.2-15.2) % Plt Count (140-440) K/mm3 Add Manual Diff Total Counted Seg Neuts % (Manual) (40.0-70.0) % Band Neutrophils % % Lymphocytes % (Manual) (13.4-35.0) % Reactive Lymphs % (Man) % Monocytes % (Manual) (0.0-7.3) % Eosinophils % (Manual) (0.0-4.3) % Basophils % (Manual) (0.0-1.8) % Metamyelocytes % % Myelocytes % % Promyelocytes % % Blast Cells % % Nucleated RBC % Seg Neutrophils # Man (1.8-7.7) K/mm3 Band Neutrophils # K/mm3 Lymphocytes # (Manual) (1.2-5.4) K/mm3 Abs React Lymphs (Man) K/mm3 Monocytes # (Manual) (0.0-0.8) K/mm3 Eosinophils # (Manual) (0.0-0.4) K/mm3 Basophils # (Manual) (0.0-0.1) K/mm3 Metamyelocytes # K/mm3 Myelocytes # K/mm3 Promyelocytes # K/mm3 Blast Cells # K/mm3 WBC Morphology Hypersegmented Neuts Hyposegmented Neuts Hypogranular Neuts Smudge Cells Toxic Granulation Toxic Vacuolation Dohle Bodies Pelger-Huet Anomaly Lata Rods Platelet Estimate Clumped Platelets Plt Clumps, EDTA Large Platelets Giant Platelets Platelet Satelliting Plt Morphology Comment RBC Morphology Dimorphic RBCs Polychromasia Hypochromasia Poikilocytosis Anisocytosis Microcytosis Macrocytosis Spherocytes Pappenheimer Bodies Sickle Cells Target Cells Tear Drop Cells Ovalocytes Helmet Cells [place]ardi-[place] Bodies [place] Rings [place] Cells Bite Cells Crenated Cell Elliptocytes Acanthocytes (Spur) Rouleaux Hemoglobin C Crystals Schistocytes Malaria parasites Gideon Bodies Hem Pathologist Commnt Sodium (137-145) mmol/L Potassium (3.6-5.0) mmol/L Chloride (98-107) mmol/L Carbon Dioxide (22-30) mmol/L Anion Gap mmol/L BUN (7-17) mg/dL Creatinine (0.6-1.2) mg/dL Estimated GFR ml/min BUN/Creatinine Ratio % Glucose (65-100) mg/dL Lactic Acid 2.10 H* (0.7-2.0) mmol/L Calcium (8.4-10.2) mg/dL Total Bilirubin (0.1-1.2) mg/dL AST (5-40) units/L ALT (7-56) units/L Alkaline Phosphatase (35-129) units/L Total Protein (6.3-8.2) g/dL Albumin (3.9-5) g/dL Albumin/Globulin Ratio % Urine Color [place] (Yellow) Urine Turbidity Cloudy (Clear) Urine pH 5.0 (5.0-7.0) Ur Specific [place] 1.018 (1.003-1.030) Urine Protein 30 mg/dl (Negative) mg/dL Urine Glucose (UA) Neg (Negative) mg/dL Urine Ketones Neg (Negative) mg/dL Urine Blood Mod (Negative) Urine Nitrite Neg (Negative) Urine Bilirubin Neg (Negative) Urine Urobilinogen < 2.0 (<2.0) mg/dL Ur Leukocyte Esterase Sm (Negative) Urine WBC (Auto) 11.0 H (0.0-6.0) /HPF Urine RBC (Auto) 7.0 (0.0-6.0) /HPF U Epithel Cells (Auto) < 1.0 (0-13.0) /HPF Urine Bacteria (Auto) 1+ (Negative) /HPF Urine Mucus 2+ /HPF Urine Yeast (Budding) 1+ /HPF - Radiology Data Ordering Physician: ANN JAIME MD Date of Service: 01/08/20 Procedure(s): XR chest 1V ap Accession Number(s): [id number] cc: ANN JAIME MD Fluoro Time In Minutes: CHEST 1 VIEW INDICATION: suspected sepsis. COMPARISON: 05/06/2019. FINDINGS: Support devices: None. Heart: Normal. Lungs/Pleura: No acute pulmonary or pleural findings. There is persistent elevation of the left hemidiaphragm. Diffuse, subjective osteopenia is noted. IMPRESSION: 1. No acute findings. Signer Name: Haroldo Sutton MD Signed: 01/08/2020 4:39 PM Workstation Name: [id number] - Medical Decision Making Patient dehydrated with hypernatremia. Patient also showing signs of UTI. Patient was started on Rocephin. Patient given IV hydration. Patient will be admitted to the hospitalist service. Critical care attestation.: If time is entered above; I have spent that time in minutes in the direct care of this critically ill patient, excluding procedure time. ED Disposition Clinical Impression: Hypernatremia Sepsis Qualifiers: Sepsis type: sepsis due to unspecified organism Sepsis acute organ dysfunction status: unspecified Qualified Code(s): A41.9 - Sepsis, unspecified organism UTI (urinary tract infection) Qualifiers: Urinary tract infection type: acute cystitis Hematuria presence: without hematuria Qualified Code(s): N30.00 - Acute cystitis without hematuria Altered mental status Qualifiers: Altered mental status type: disorientation Qualified Code(s): R41.0 - Disorientation, unspecified Disposition: OP ADMIT IP TO THIS HOSP Is pt being admited?: Yes Does the pt Need Aspirin: No Condition: Stable Referrals: PRIMARY CARE, [Primary Care Provider] - 3-5 Days Time of Disposition: 19:58
[2020-01-08 17:15] LABS: Albumin 2.5 g/dL (3.9-5); Calcium 7.9 mg/dL (8.4-10.2)
[2020-01-08 17:20] LABS: Hematocrit 39.7 % (30.3-42.9); Hemoglobin 12.6 gm/dl (10.1-14.3); Mean Corpuscular HGB Conc 32 % (30-34); Mean Corpuscular Volume 94 fl (79-97); Platelet Count 208 K/mm3 (140-440); Red Blood Count 4.23 M/mm3 (3.65-5.03); Red Cell Distribution Width 15.5 % (13.2-15.2)
[2020-01-08 18:35] LABS: Basophils % (Manual) 0 % (0.0-1.8); RBC Morphology Normal; Total Cells Counted 100
[2020-01-08 19:11] LABS: Bacteria,Urine 1+ /HPF (Negative); Bilirubin,Urine NEG (Negative); Blood,Urine MOD (Negative); Color,Urine Amber (Yellow); Mucus,Urine 2+ /HPF; Urobilinogen,Urine < 2.0 mg/dL (<2.0)
[2020-01-08] MEDS ORDERED: SODIUM CHLORIDE 0.9% 1000 ML 1,000 ML IV ONE (19:33)
[2020-01-08] MEDS ORDERED: DEXTROSE 50% IN WATER (25GM) 50 ML SYRINGE IV PRN (23:14)
[2020-01-08] MEDS ORDERED: MAGNESIUM HYDROXIDE (MOM) ORAL LIQD UDC PO PRN (23:14)
[2020-01-08] MEDS ORDERED: ONDANSETRON 4 MG/2 ML INJ IV PRN (23:14)
[2020-01-08] MEDS ORDERED: SODIUM CHLORIDE 0.9% 1000 ML 1,000 ML IV SCH (23:15)
--- NOTE | 2020-01-08 23:25 | History and Physical Report ---
History of Present Illness Date of examination: 01/08/20 Date of admission: 01/08/20 22:01 Chief complaint: Altered mental status History of present illness: Patient is a 69-year-old -Maced[place] female with known history of dementia, diabetes mellitus and pulmonary embolism was brought into the emergency room today for decreased responsiveness, lethargy and hypotension. According to home health nurse patient has become less active and blood pressure was said to be low. Patient unable to give any history at this time most of the history was obtained from the ER physician. Upon arrival in the emergency room patient had a low-grade fever. Work-up in e emergency room reveals elevated white blood cell count of 13.5, elevated BUN and creatinine 30 and 1.1 respectively. Found to be dehydrated and hypernatremic. Urinalysis shows UTI. Patient subsequently started on IV fluid and empiric IV antibiotics. Past History Past Medical History: diabetes, hyperlipidemia, pulmonary embolism, other (Dementia,Asthma) Past Surgical History: No surgical history Social history: no significant social history Family history: no significant family history Medications and Allergies Allergies Allergy/AdvReac Type Severity Reaction Status Date / Time No Known Allergies Allergy Unverified 06/23/14 09:54 Home Medications Medication Instructions Recorded Confirmed Last Taken Type AtorvaSTATin 10 mg PO QHS 05/06/19 05/06/19 05/05/19 History Donepezil HCl [Donepezil HCl Odt] 10 mg PO QHS 05/06/19 05/06/19 Unknown History LORazepam [Lorazepam] 0.5 mg PO BID 05/06/19 05/06/19 Unknown History Melatonin [Melatonin 10MG CAP] 10 mg PO QHS 05/06/19 05/06/19 05/05/19 History Metformin HCl [Metformin HCl ER] 500 mg PO Q2D 05/06/19 05/06/19 05/05/19 Hist ory Apixaban [Eliquis] 5 mg PO BID 30 Days #60 tablet 05/08/19 Unknown Rx Apixaban [Eliquis] 10 mg PO BID 7 Days #14 tablet 05/08/19 Unknown Rx Active Meds: Active Medications Acetaminophen (Tylenol) 650 mg PO Q4H PRN PRN Reason: Pain MILD(1-3)/Fever >100.5/GARCIA Dextrose (D50w (25gm) Syringe) 50 ml IV Q30MIN PRN; Protocol PRN Reason: Hypoglycemia Dextrose (D50w (25gm) Syringe) 50 ml IV Q30MIN PRN; Protocol PRN Reason: Hypoglycemia Ceftriaxone Sodium (Rocephin/Ns 1 Gm/50 Ml) 1 gm in 50 mls @ 100 mls/hr IV Q24H BRO; Protocol Stop: 01/10/20 17:29 Last Admin: 01/08/20 17:11 Dose: 100 mls/hr Documented by: Sodium Chloride (Nacl 0.9% 1000 Ml) 1,000 mls @ 125 mls/hr IV ONCE ONE Stop: 01/09/20 03:32 Last Admin: 01/08/20 20:36 Dose: 125 mls/hr Documented by: Sodium Chloride (Nacl 0.9% 1000 Ml) 1,000 mls @ 125 mls/hr IV DIRECT BRO Ceftriaxone Sodium (Rocephin/Ns 1 Gm/50 Ml) 1 gm in 50 mls @ 100 mls/hr IV Q24HR BRO; Protocol Insulin Human Lispro (Humalog) 0 unit SUB-Q ACHS BRO; Protocol Insulin Human Lispro (Humalog) 0 unit SUB-Q ACHS BRO; Protocol Magnesium Hydroxide (Milk Of Magnesia) 30 ml PO Q4H PRN PRN Reason: Constipation Ondansetron HCl (Zofran) 4 mg IV Q8H PRN PRN Reason: Nausea And Vomiting Sodium Chloride (Sodium Chloride Flush Syringe 10 Ml) 10 ml IV BID BRO Sodium Chloride (Sodium Chloride Flush Syringe 10 Ml) 10 ml IV PRN PRN PRN Reason: LINE FLUSH Review of Systems ROS unobtainable: due to mental status Exam - Constitutional Vitals: Temp Pulse Resp BP Pulse Ox 100.1 F H 106 H 24 109/67 99 01/08/20 22:49 01/08/20 22:00 01/08/20 22:00 01/08/20 22:00 01/08/20 22:00 General appearance: Present: no acute distress, well-nourished - EENT Eyes: Present: PERRL, EOM intact. Absent: scleral icterus ENT: hearing intact, clear oral mucosa, dentition normal - Neck Neck: Present: supple, normal ROM - Respiratory Respiratory effort: normal Respiratory: bilateral: CTA - Cardiovascular Rhythm: regular Heart Sounds: Present: S1 & S2. Absent: gallop, systolic murmur, diastolic murmur, rub - Extremities Extremities: no ischemia, pulses intact, pulses symmetrical, No edema, Full ROM Peripheral Pulses: within normal limits - Abdominal General gastrointestinal: Present: soft, non-tender, non-distended, normal bowel sounds. Absent: mass - Integumentary Integumentary: Present: clear, warm, dry. Absent: rash - Musculoskeletal Musculoskeletal: strength equal bilaterally - Psychiatric Psychiatric: appropriate mood/affect, intact judgment & insight, cooperative - Neurologic Neurologic: CNII-XII intact, no focal deficits, moves all extremities Results - Labs CBC & Chem 7: 01/08/20 16:29 01/08/20 16:29 Labs: Abnormal lab results 01/08/20 01/08/20 01/08/20 Range/Units 16:29 16:29 16:29 WBC 13.5 H (4.5-11.0) K/mm3 RDW 15.5 H (13.2-15.2) % Seg Neuts % (Manual) 85.0 H (40.0-70.0) % Lymphocytes % (Manual) 11.0 L (13.4-35.0) % Seg Neutrophils # Man 11.5 H (1.8-7.7) K/mm3 Sodium 161 H* (137-145) mmol/L Chloride 125.5 H (98-107) mmol/L Carbon Dioxide 20 L (22-30) mmol/L BUN 30 H (7-17) mg/dL Glucose 115 H (65-100) mg/dL Lactic Acid 2.20 H* (0.7-2.0) mmol/L Calcium 7.9 L (8.4-10.2) mg/dL AST 48 H (5-40) units/L Albumin 2.5 L (3.9-5) g/dL Urine WBC (Auto) (0.0-6.0) /HPF 01/08/20 01/08/20 Range/Units 19:02 Unknown WBC (4.5-11.0) K/mm3 RDW (13.2-15.2) % Seg Neuts % (Manual) (40.0-70.0) % Lymphocytes % (Manual) (13.4-35.0) % Seg Neutrophils # Man (1.8-7.7) K/mm3 Sodium (137-145) mmol/L Chloride (98-107) mmol/L Carbon Dioxide (22-30) mmol/L BUN (7-17) mg/dL Glucose (65-100) mg/dL Lactic Acid 2.10 H* (0.7-2.0) mmol/L Calcium (8.4-10.2) mg/dL AST (5-40) units/L Albumin (3.9-5) g/dL Urine WBC (Auto) 11.0 H (0.0-6.0) /HPF Assessment and Plan - Patient Problems (1) Altered mental status Current Visit: Yes Status: Acute Qualifiers: Altered mental status type: disorientation Qualified Code(s): R41.0 - Disorientation, unspecified Plan to address problem: Possibly secondary to the underlying urinary tract infection. Patient also has baseline history of dementia. We will continue to monitor mental status . (2) Hypernatremia Current Visit: Yes Status: Acute Plan to address problem: We will continue to monitor chemistry. Patient placed on IV fluid (3) UTI (urinary tract infection) Current Visit: Yes Status: Acute Qualifiers: Urinary tract infection type: acute cystitis Hematuria presence: without hematuria Qualified Code(s): N30.00 - Acute cystitis without hematuria Plan to address problem: Patient placed on empiric IV antibiotics. We will await urine culture result. (4) Diabetes mellitus type 2 in nonobese Current Visit: No Status: Acute Plan to address problem: We will monitor Accu-Cheks. (5) Dementia Current Visit: No Status: Chronic Plan to address problem: We will continue patient on her routine home medications. (6) DVT prophylaxis Current Visit: No Status: Acute Plan to address problem: Patient currently on anticoagulation. (7) Full code status Current Visit: Yes Status: Acute
[2020-01-09] MEDS ORDERED: SODIUM CHLORIDE 0.9% 500 ML IVPB IV ONE (00:42)
[2020-01-09] MEDS ORDERED: SODIUM CHLORIDE 0.9% 250ML 250 ML IV ONE (01:00)
[2020-01-09 06:14] LABS: Basophils # (Auto) 0.1 K/mm3 (0.0-0.1); Basophils % (Auto) 0.7 % (0.0-1.8); Eosinophils % (Auto) 0.2 % (0.0-4.3); Hematocrit 27.4 % (30.3-42.9); Lymphocytes # (Auto) 1.2 K/mm3 (1.2-5.4); Lymphocytes % (Auto) 9.1 % (13.4-35.0); Mean Corpuscular HGB Conc 33 % (30-34); Mean Corpuscular Volume 91 fl (79-97); Monocytes # (Auto) 0.3 K/mm3 (0.0-0.8); Monocytes % (Auto) 2.4 % (0.0-7.3); Platelet Count 214 K/mm3 (140-440); Red Blood Count 3.02 M/mm3 (3.65-5.03); Red Cell Distribution Width 14.6 % (13.2-15.2)
[2020-01-09 06:26] LABS: INR 1.36 (0.87-1.13)
[2020-01-09 06:34] LABS: Blood Urea Nitrogen 23 mg/dL (7-17); Calcium 7.6 mg/dL (8.4-10.2); Hemolysis Index 4
[2020-01-09 07:15] LABS: BUN/Creatinine Ratio 33
[2020-01-09] MEDS ORDERED: POTASSIUM CHLORIDE ER 20 MEQ TAB PO NR (07:22)
[2020-01-09] MEDS ORDERED: INSULIN LISPRO 100 UNIT/ML VIAL 3 mL SUB-Q SCH (07:30)
[2020-01-09] MEDS: INSULIN LISPRO 100 UNIT/ML VIAL 3 mL SUB-Q SCH ×4 (07:56→22:27)
[2020-01-09] MEDS: POTASSIUM CHLORIDE 10 MEQ 10 MEQ/100 ML BAG IV SCH ×4 (08:16→12:05)
[2020-01-09] MEDS ORDERED: cefTRIAXone/NS 1 GM/50 ML 1 GM/50 ML BAG IV SCH (10:00)
--- NOTE | 2020-01-09 12:08 | Consultation ---
History of Present Illness - Reason for Consult Consult date: 01/09/20 hypernatremia Requesting physician: ELIA SHARMA - History of Present Illness Patient is a 69-year-old F Irish female with a past medical history of advanced dementia diabetes and pulmonary embolus who is presenting with some worsening of her mental status and hypotension. Patient according to home health nurse was less active and blood pressure was low. Patient had a low- grade temperature on arrival. Is unknown whether the patient is had cough congestion nausea vomiting at her home. Patient is non- verbal here in the emergency department. Patient is confused at this time. Unable to get any information from her. Renal consult is requested for hyponatremia. Past History Past Medical History: diabetes, hyperlipidemia, pulmonary embolism, other (Dementia,Asthma) Past Surgical History: No surgical history Social history: no significant social history Family history: no significant family history Medications and Allergies Allergies Allergy/AdvReac Type Severity Reaction Status Date / Time No Known Allergies Allergy Unverified 06/23/14 09:54 Home Medications Medication Instructions Recorded Confirmed Last Taken Type AtorvaSTATin 10 mg PO QHS 05/06/19 05/06/19 05/05/19 History Donepezil HCl [Donepezil HCl Odt] 10 mg PO QHS 05/06/19 05/06/19 Unknown History LORazepam [Lorazepam] 0.5 mg PO BID 05/06/19 05/06/19 Unknown History Melatonin [Melatonin 10MG CAP] 10 mg PO QHS 05/06/19 05/06/19 05/05/19 History Metformin HCl [Metformin HCl ER] 500 mg PO Q2D 05/06/19 05/06/19 05/05/19 History Apixaban [Eliquis] 5 mg PO BID 30 Days #60 tablet 05/08/19 Unknown Rx Apixaban [Eliquis] 10 mg PO BID 7 Days #14 tablet 05/08/19 Unknown Rx Active Meds: Active Medications Acetaminophen (Tylenol) 650 mg PO Q4H PRN PRN Reason: Pain MILD(1-3)/Fever >100.5/GARCIA Dextrose (D50w (25gm) Syringe) 0 ml IV Q30MIN PRN; Protocol PRN Reason: Hypoglycemia Sodium Chloride (Nacl 0.9% 1000 Ml) 1,000 mls @ 125 mls/hr IV DIRECT BRO Last Admin: 01/09/20 05:00 Dose: 125 mls/hr Documented by: Ceftriaxone Sodium (Rocephin/Ns 1 Gm/50 Ml) 1 gm in 50 mls @ 100 mls/hr IV Q24HR [facility]; Protocol Insulin Human Lispro (Humalog) 0 unit SUB-Q ACHS BRO; Protocol Last Admin: 01/09/20 07:56 Dose: Not Given Documented by: Magnesium Hydroxide (Milk Of Magnesia) 30 ml PO Q4H PRN PRN Reason: Constipation Ondansetron HCl (Zofran) 4 mg IV Q8H PRN PRN Reason: Nausea And Vomiting Sodium Chloride (Sodium Chloride Flush Syringe 10 Ml) 10 ml IV BID [facility] Last Admin: 01/09/20 11:55 Dose: Not Given Documented by: Sodium Chloride (Sodium Chloride Flush Syringe 10 Ml) 10 ml IV PRN PRN PRN Reason: LINE FLUSH Review of Systems ROS unobtainable: due to mental status Exam - Vital Signs Vital signs: Vital Signs Pulse Resp BP Pulse Ox 125 H 11 L 123/74 99 01/08/20 15:30 01/08/20 15:30 01/08/20 15:30 01/08/20 15:30 - General Appearance General appearance: chronically ill, frail, other (Contracted and in position) EENT: PERRL, mucous membranes dry Neck: Present: neck supple Respiratory: Clear to Ascultation Heart: regular, normal heart rate Gastrointestinal: Present: normal, normoactive bowel sounds Integumentary: other (No edema) Results - Lab Results 01/09/20 05:52 01/09/20 05:52 Most recent lab results Calcium 7.6 mg/dL (8.4-10.2) L 01/09/20 05:52 Assessment and Plan Impression * Hypernatremia * Dehydration * Dementia * Hypokalemia * Diabetes Recommendations * Patient clinically appears to be dehydrated. * Hyponatremia is most likely secondary to free water deficit * Patient is currently receiving isotonic saline because of hypotension. Her blood pressure seems to be better. Switch IV fluid to half-normal * Check urine sodium and urine osmolality * Monitor fluid status and electrolytes closely * Avoid nephrotoxins * Replace potassium. Check magnesium level * Thank you very much for the consultation. Shall follow along with you
--- NOTE | 2020-01-09 12:10 | Progress Note ---
Assessment and Plan Assessment and plan: Patient is a 69-year-old -[place] female with known history of dementia, diabetes mellitus and pulmonary embolism was brought into the emergency room for decreased responsiveness, lethargy and hypotension. According to home health nurse patient has become less active and blood pressure was said to be low. She was brought to the emergency room for evaluation. Further history cannot be obtained from patient. Upon arrival in the emergency room patient had a low-grade fever. Work-up in the emergency room reveals elevated white blood cell count of 13.5, elevated BUN and creatinine 30 and 1.1 respectively. Found to be dehydrated and hypernatremic. Urinalysis shows UTI. Patient subsequently started on IV fluid and empiric IV antibiotics admitted for further evaluation. 01/08. Patient seen and examined at bedside this month. Patient not talking much this morning. Discussed case with patient spouse [patient usually does not talk much due to possible underlying dementia]. Started patient on her home medications today. Sodium slightly elevated from yesterday-162. Switch to hyp otonic solution after resuscitation. Monitor BMP - Patient Problems (1) Hypernatremia Current Visit: Yes Status: Acute Plan to address problem: Patient has decreased lethargy could be as a result of hypernatremia She received normal saline in the ER. Start D5 1/2NS after resuscitation Trend sodium levels. Target sodium not more than 9-10meq increase per day Nephrology following (2) Sepsis Current Visit: Yes Status: Acute Qualifiers: Sepsis type: sepsis due to unspecified organism Sepsis acute organ dysfunction status: unspecified Qualified Code(s): A41.9 - Sepsis, unspecified organism Plan to address problem: From urinary tract infection Blood culture and urine cultures pending Continue IV antibiotics Monitor vital signs closely (3) UTI (urinary tract infection) Current Visit: Yes Status: Acute Qualifiers: Urinary tract infection type: acute cystitis Hematuria presence: without hematuria Qualified Code(s): N30.00 - Acute cystitis without hematuria Plan to address problem: Continue antibiotics Urine cultures pending (4) Bilateral pulmonary embolism Current Visit: No Status: Chronic Plan to address problem: Had pulmonary embolism 7 months ago. As per pulmonology, patient needs indefinite anticoagulation Continue Eliquis 5 mg twice daily (5) Uncontrolled diabetes mellitus Current Visit: No Status: Acute Plan to address problem: Patient takes metformin 500 mg daily at home Start sliding scale [low-dose] (6) DVT prophylaxis Current Visit: No Status: Acute Plan to address problem: Patient is on full anticoagulation for bilateral PE History Interval history: See assessment and plan Hospitalist Physical - Constitutional Vitals: Temp Pulse Resp BP Pulse Ox 99.0 F 117 H 18 109/72 100 01/09/20 04:29 01/09/20 08:25 01/09/20 04:29 01/09/20 04:29 01/09/20 04:29 General appearance: Present: no acute distress, well-nourished - EENT Eyes: Present: PERRL - Neck Neck: Present: supple - Respiratory Respiratory: bilateral: CTA - Cardiovascular Heart Sounds: Present: S1 & S2 - Abdominal General gastrointestinal: soft, non-tender, non-distended, normal bowel sounds - Neurologic Neurologic: CNII-XII intact Results - Labs CBC & Chem 7: 01/09/20 05:52 01/09/20 05:52 Labs: Laboratory Last Values WBC 13.5 K/mm3 (4.5-11.0) H 01/09/20 05:52 RBC 3.02 M/mm3 (3.65-5.03) L 01/09/20 05:52 Hgb 9.0 gm/dl (10.1-14.3) L D 01/09/20 05:52 Hct 27.4 % (30.3-42.9) L D 01/09/20 05:52 MCV 91 fl (79-97) 01/09/20 05:52 MCH 30 pg (28-32) 01/09/20 05:52 MCHC 33 % (30-34) 01/09/20 05:52 RDW 14.6 % (13.2-15.2) 01/09/20 05:52 Plt Count 214 K/mm3 (140-440) 01/09/20 05:52 Lymph % (Auto) 9.1 % (13.4-35.0) L 01/09/20 05:52 Hendry % (Auto) 2.4 % (0.0-7.3) 01/09/20 05:52 Eos % (Auto) 0.2 % (0.0-4.3) 01/09/20 05:52 Baso % (Auto) 0.7 % (0.0-1.8) 01/09/20 05:52 Lymph # 1.2 K/mm3 (1.2-5.4) 01/09/20 05:52 Hendry # 0.3 K/mm3 (0.0-0.8) 01/09/20 05:52 Eos # 0.0 K/mm3 (0.0-0.4) 01/09/20 05:52 Baso # 0.1 K/mm3 (0.0-0.1) 01/09/20 05:52 Add Manual Diff Complete 01/08/20 16:29 Total Counted 100 01/08/20 16:29 Seg Neutrophils % 87.6 % (40.0-70.0) H 01/09/20 05:52 Seg Neuts % (Manual) 85.0 % (40.0-70.0) H 01/08/20 16:29 Band Neutrophils % 0 % 01/08/20 16:29 Lymphocytes % (Manual) 11.0 % (13.4-35.0) L 01/08/20 16:29 Reactive Lymphs % (Man) 0 % 01/08/20 16:29 Monocytes % (Manual) 3.0 % (0.0-7.3) 01/08/20 16:29 Eosinophils % (Manual) 1.0 % (0.0-4.3) 01/08/20 16:29 Basophils % (Manual) 0 % (0.0-1.8) 01/08/20 16:29 Metamyelocytes % 0 % 01/08/20 16:29 Myelocytes % 0 % 01/08/20 16:29 Promyelocytes % 0 % 01/08/20 16:29 Blast Cells % 0 % 01/08/20 16:29 Nucleated RBC % Not Reportable 01/08/20 16:29 Seg Neutrophils # 11.8 K/mm3 (1.8-7.7) H 01/09/20 05:52 Seg Neutrophils # Man 11.5 K/mm3 (1.8-7.7) H 01/08/20 16:29 Band Neutrophils # 0.0 K/mm3 01/08/20 16:29 Lymphocytes # (Manual) 1.5 K/mm3 (1.2-5.4) 01/08/20 16:29 Abs React Lymphs (Man) 0.0 K/mm3 01/08/20 16:29 Monocytes # (Manual) 0.4 K/mm3 (0.0-0.8) 01/08/20 16:29 Eosinophils # (Manual) 0.1 K/mm3 (0.0-0.4) 01/08/20 16:29 Basophils # (Manual) 0.0 K/mm3 (0.0-0.1) 01/08/20 16:29 Metamyelocytes # 0.0 K/mm3 01/08/20 16:29 Myelocytes # 0.0 K/mm3 01/08/20 16:29 Promyelocytes # 0.0 K/mm3 01/08/20 16:29 Blast Cells # 0.0 K/mm3 01/08/20 16:29 WBC Morphology Not Reportable 01/08/20 16:29 Hypersegmented Neuts Not Reportable 01/08/20 16:29 Hyposegmented Neuts Not Reportable 01/08/20 16:29 Hypogranular Neuts Not Reportable 01/08/20 16:29 Smudge Cells Not Reportable 01/08/20 16:29 Toxic Granulation Not Reportable 01/08/20 16:29 Toxic Vacuolation Not Reportable 01/08/20 16:29 Dohle Bodies Not Reportable 01/08/20 16:29 Pelger-Huet Anomaly Not Reportable 01/08/20 16:29 Lata Rods Not Reportable 01/08/20 16:29 Platelet Estimate Not Reportable 01/08/20 16:29 Clumped Platelets Not Reportable 01/08/20 16:29 Plt Clumps, EDTA Not Reportable 01/08/20 16:29 Large Platelets Not Reportable 01/08/20 16:29 Giant Platelets Not Reportable 01/08/20 16:29 Platelet Satelliting Not Reportable 01/08/20 16:29 Plt Morphology Comment Not Reportable 01/08/20 16:29 RBC Morphology Normal 01/08/20 16:29 Dimorphic RBCs Not Reportable 01/08/20 16:29 Polychromasia Not Reportable 01/08/20 16:29 Hypochromasia Not Reportable 01/08/20 16:29 Poikilocytosis Not Reportable 01/08/20 16:29 Anisocytosis Not Reportable 01/08/20 16:29 Microcytosis Not Reportable 01/08/20 16:29 Macrocytosis Not Reportable 01/08/20 16:29 Spherocytes Not Reportable 01/08/20 16:29 Pappenheimer Bodies Not Reportable 01/08/20 16:29 Sickle Cells Not Reportable 01/08/20 16:29 Target Cells Not Reportable 01/08/20 16:29 Tear Drop Cells Not Reportable 01/08/20 16:29 Ovalocytes Not Reportable 01/08/20 16:29 Helmet Cells Not Reportable 01/08/20 16:29 Lombardi-[place] Bodies Not Reportable 01/08/20 16:29 [place] Rings Not Reportable 01/08/20 16:29 Leonidas Cells Not Reportable 01/08/20 16:29 Bite Cells Not Reportable 01/08/20 16:29 Crenated Cell Not Reportable 01/08/20 16:29 Elliptocytes Not Reportable 01/08/20 16:29 Acanthocytes (Spur) Not Reportable 01/08/20 16:29 Rouleaux Not Reportable 01/08/20 16:29 Hemoglobin C Crystals Not Reportable 01/08/20 16:29 Schistocytes Not Reportable 01/08/20 16:29 Malaria parasites Not Reportable 01/08/20 16:29 Gideon Bodies Not Reportable 01/08/20 16:29 Hem Pathologist Commnt No 01/08/20 16:29 PT 17.1 Sec. (12.2-14.9) H 01/09/20 05:52 INR 1.36 (0.87-1.13) H 01/09/20 05:52 Sodium 162 mmol/L (137-145) H* 01/09/20 05:52 Potassium 3.0 mmol/L (3.6-5.0) L D 01/09/20 05:52 Chloride 128.3 mmol/L (98-107) H 01/09/20 05:52 Carbon Dioxide 22 mmol/L (22-30) 01/09/20 05:52 Anion Gap 15 mmol/L 01/09/20 05:52 BUN 23 mg/dL (7-17) H 01/09/20 05:52 Creatinine 0.7 mg/dL (0.6-1.2) 01/09/20 05:52 Estimated GFR > 60 ml/min 01/09/20 05:52 BUN/Creatinine Ratio 33 % 01/09/20 05:52 Glucose 73 mg/dL (65-100) 01/09/20 05:52 POC Glucose 76 (70-105) 01/09/20 08:03 Lactic Acid 1.20 mmol/L (0.7-2.0) 01/09/20 05:52 Calcium 7.6 mg/dL (8.4-10.2) L 01/09/20 05:52 Total Bilirubin 0.40 mg/dL (0.1-1.2) 01/08/20 16:29 AST 48 units/L (5-40) H 01/08/20 16:29 ALT 33 units/L (7-56) 01/08/20 16:29 Alkaline Phosphatase 44 units/L (35-129) 01/08/20 16:29 Total Protein 6.5 g/dL (6.3-8.2) 01/08/20 16:29 Albumin 2.5 g/dL (3.9-5) L 01/08/20 16:29 Albumin/Globulin Ratio 0.6 % 01/08/20 16:29 Urine Color Cordelia (Yellow) 01/08/20 Unknown Urine Turbidity Cloudy (Clear) 01/08/20 Unknown Urine pH 5.0 (5.0-7.0) 01/08/20 Unknown Ur Specific [place] 1.018 (1.003-1.030) 01/08/20 Unknown Urine Protein 30 mg/dl mg/dL (Negative) 01/08/20 Unknown Urine Glucose (UA) Neg mg/dL (Negative) 01/08/20 Unknown Urine Ketones Neg mg/dL (Negative) 01/08/20 Unknown Urine Blood Mod (Negative) 01/08/20 Unknown Urine Nitrite Neg (Negative) 01/08/20 Unknown Urine Bilirubin Neg (Negative) 01/08/20 Unknown Urine Urobilinogen < 2.0 mg/dL (<2.0) 01/08/20 Unknown Ur Leukocyte Esterase Sm (Negative) 01/08/20 Unknown Urine WBC (Auto) 11.0 /HPF (0.0-6.0) H 01/08/20 Unknown Urine RBC (Auto) 7.0 /HPF (0.0-6.0) 01/08/20 Unknown U Epithel Cells (Auto) < 1.0 /HPF (0-13.0) 01/08/20 Unknown Urine Bacteria (Auto) 1+ /HPF (Negative) 01/08/20 Unknown Urine Mucus 2+ /HPF 01/08/20 Unknown Urine Yeast (Budding) 1+ /HPF 01/08/20 Unknown Microbiology: Microbiology 01/08/20 16:29 Peripheral/Venous Blood Culture - Preliminary Culture in Progress 01/08/20 16:40 Peripheral/Venous Blood Culture - Preliminary Culture in Progress Active Medications - Current Medications Current Medications: Generic Name Dose Route Start Last Admin Trade Name Freq PRN Reason Stop Dose Admin Acetaminophen 650 mg 01/08/20 23:14 Tylenol PO Q4H PRN Pain MILD(1-3)/Fever >100.5/GARCIA Dextrose 0 ml 01/08/20 23:14 D50w (25gm) Syringe IV Q30MIN PRN Hypoglycemia Protocol Sodium Chloride 1,000 mls @ 125 mls/hr 01/08/20 23:15 01/09/20 05:00 Nacl 0.9% 1000 Ml IV 125 mls/hr DIRECT BRO Administration Ceftriaxone Sodium 1 gm in 50 mls @ 100 mls/hr 01/09/20 10:00 Rocephin/Ns 1 Gm/50 Ml IV Q24HR [facility] Protocol Insulin Human Lispro 0 unit 01/09/20 07:30 01/09/20 07:56 Humalog SUB-Q Not Given ACHS [facility] Protocol Magnesium Hydroxide 30 ml 01/08/20 23:14 Milk Of Magnesia PO Q4H PRN Constipation Ondansetron HCl 4 mg 01/08/20 23:14 Zofran IV Q8H PRN Nausea And Vomiting Sodium Chloride 10 ml 01/09/20 10:00 01/09/20 11:55 Sodium Chloride Flush Syringe 10 Ml IV Not Given BID BRO Sodium Chloride 10 ml 01/08/20 23:14 Sodium Chloride Flush Syringe 10 Ml IV PRN PRN LINE FLUSH
[2020-01-09] MEDS: cefTRIAXone/NS 1 GM/50 ML 1 GM/50 ML BAG IV SCH (12:49)
[2020-01-09] MEDS: APIXABAN 5 MG TAB PO SCH ×3 (12:49→23:48)
[2020-01-09] MEDS ORDERED: D5W/0.45% NACL 1,000 ML IV SCH (13:00)
[2020-01-09] MEDS ORDERED: SODIUM CHLORIDE 0.45% 1000 ML 1,000 ML IV SCH (13:00)
[2020-01-09] MEDS ORDERED: LACTATED RINGERS 500 ML IV ONE (15:32)
[2020-01-09] MEDS: DEXTROSE 50% IN WATER (25GM) 50 ML SYRINGE IV PRN (21:45)
[2020-01-09 21:50] LABS: Blood Urea Nitrogen 23 mg/dL (7-17); Calcium 8.2 mg/dL (8.4-10.2); Hemolysis Index 83
[2020-01-09 21:54] LABS: BUN/Creatinine Ratio 38
[2020-01-09] MEDS: MIRTAZAPINE 15 MG TAB PO SCH ×2 (22:52→23:55)
[2020-01-09] MEDS: DONEPEZIL 10 MG TAB PO SCH ×2 (22:52→23:50)
[2020-01-09] MEDS: traZODone 50 MG TAB PO SCH ×2 (22:53→23:51)
[2020-01-09] MEDS: DEXTROSE 5% IN WATER 1,000 ML IV SCH (22:54)
[2020-01-10 06:11] LABS: Blood Urea Nitrogen 19 mg/dL (7-17); Calcium 8.4 mg/dL (8.4-10.2); Hemolysis Index 23
[2020-01-10 06:39] LABS: BUN/Creatinine Ratio 27
[2020-01-10] MEDS ORDERED: METOPROLOL TARTRATE 5 MG/5 ML INJ IV ONE (09:27)
--- NOTE | 2020-01-10 10:47 | XRay Report ---
CHEST 1 VIEW 01/10/2020 9:31 AM INDICATION / CLINICAL INFORMATION: Dyspnea. COMPARISON: 01/08/20 FINDINGS: SUPPORT DEVICES: None. HEART / MEDIASTINUM: Stable. LUNGS / PLEURA: Elevated left hemidiaphragm is unchanged. No acute airspace disease. No pneumothorax. ADDITIONAL FINDINGS: No significant additional findings. IMPRESSION: 1. No significant change. Signer Name: Kelly Linder MD Signed: 01/10/2020 10:43 AM Workstation Name: [id number]
[2020-01-10] MEDS: INSULIN LISPRO 100 UNIT/ML VIAL 3 mL SUB-Q SCH ×2 (10:53→16:52)
[2020-01-10] MEDS: APIXABAN 5 MG TAB PO SCH ×2 (10:53→23:26)
[2020-01-10 10:59] LABS: Basophils # (Auto) 0.1 K/mm3 (0.0-0.1); Basophils % (Auto) 0.4 % (0.0-1.8); Eosinophils % (Auto) 0.3 % (0.0-4.3); Hematocrit 34.7 % (30.3-42.9); Hemoglobin 11.4 gm/dl (10.1-14.3); Lymphocytes % (Auto) 7.2 % (13.4-35.0); Mean Corpuscular HGB Conc 33 % (30-34); Mean Corpuscular Volume 91 fl (79-97); Monocytes # (Auto) 0.3 K/mm3 (0.0-0.8); Monocytes % (Auto) 2.1 % (0.0-7.3); Platelet Count 201 K/mm3 (140-440); Red Blood Count 3.83 M/mm3 (3.65-5.03); Red Cell Distribution Width 14.2 % (13.2-15.2)
--- NOTE | 2020-01-10 11:40 | Progress Note ---
Assessment and Plan Impression * Hypernatremia * Dehydration * Dementia * Hypokalemia * Diabetes Recommendations * Patient clinically appears to be dehydrated. * Hypernatremia is most likely secondary to free water deficit * Continue hypotonic IV fluid for now * Awaiting results of urine studies * Monitor fluid status and electrolytes closely * Avoid nephrotoxins * Magnesium and potassium level is now normal Subjective Date of service: 01/10/20 Interval history: Patient appears more alert today. Oral intake seems to be poor. Objective - Vital Signs Vital signs: Vital Signs - 12hr 01/10/20 04:54 Temperature 98.5 F Pulse Rate 111 H Respiratory 18 Rate Blood Pressure 112/62 O2 Sat by Pulse 99 Oximetry - General Appearance General appearance: chronically ill, frail EENT: ATNC, PERRL Neck: no JVD, no thyromegaly, no carotid bruit, supple Respiratory: Present: Clear to Ascultation Cardiology: regular, normal heart rate Gastrointestinal: normal, normoactive bowel sounds Integumentary: other (No edema) - Lab 01/10/20 10:10 01/10/20 05:23 Most recent lab results Calcium 8.4 mg/dL (8.4-10.2) 01/10/20 05:23 Magnesium 2.10 mg/dL (1.7-2.3) 01/10/20 05:23 Medications & Allergies - Medications Allergies/Adverse Reactions: Allergies No Known Allergies Allergy (Unverified 06/23/14 09:54) Home Medications: Home Medications Medication Instructions Recorded Confirmed Last Taken Type AtorvaSTATin 10 mg PO QHS 05/06/19 05/06/19 05/05/19 History Donepezil HCl [Donepezil HCl Odt] 10 mg PO QHS 05/06/19 05/06/19 Unknown History LORazepam [Lorazepam] 0.5 mg PO BID 05/06/19 05/06/19 Unknown History Melatonin [Melatonin 10MG CAP] 10 mg PO QHS 05/06/19 05/06/19 05/05/19 History Metformin HCl [Metformin HCl ER] 500 mg PO Q2D 05/06/19 05/06/19 05/05/19 History Apixaban [Eliquis] 5 mg PO BID 30 Days #60 tablet 05/08/19 Unknown Rx Apixaban [Eliquis] 10 mg PO BID 7 Days #14 tablet 05/08/19 Unknown Rx Active Medications: Generic Name Dose Route Start Last Admin Trade Name Freq PRN Reason Stop Dose Admin Acetaminophen 650 mg 01/08/20 23:14 Tylenol PO Q4H PRN Pain MILD(1-3)/Fever >100.5/GARCIA Apixaban 5 mg 01/09/20 13:00 01/10/20 10:53 Eliquis PO Not Given Q12HR [facility]O Protocol Atorvastatin Calcium 10 mg 01/09/20 22:00 01/09/20 23:51 Atorvastatin PO Not Given QHS BRO Dextrose 0 ml 01/08/20 23:14 01/09/20 21:45 D50w (25gm) Syringe IV 20 ml Q30MIN PRN Administration Hypoglycemia Protocol Donepezil HCl 10 mg 01/09/20 22:00 01/09/20 23:50 Aricept PO Not Given QHS BRO Sodium Chloride 1,000 mls @ 125 mls/hr 01/09/20 13:00 Nacl 0.45% 1000 Ml IV DIRECT BRO Ceftriaxone Sodium 1 gm in 50 mls @ 100 mls/hr 01/09/20 13:00 01/09/20 12:49 Rocephin/Ns 1 Gm/50 Ml IV 100 mls/hr Q24H [facility] Administration Protocol Dextrose 1,000 mls @ 75 mls/hr 01/09/20 23:00 01/09/20 22:54 D5w IV 75 mls/hr DIRECT BRO Administration Insulin Human Lispro 0 unit 01/09/20 07:30 01/10/20 10:53 Humalog SUB-Q Not Given ACHS [facility] Protocol Magnesium Hydroxide 30 ml 01/08/20 23:14 Milk Of Magnesia PO Q4H PRN Constipation Mirtazapine 15 mg 01/09/20 22:00 01/09/20 23:55 Remeron PO Not Given QHS BRO Ondansetron HCl 4 mg 01/08/20 23:14 Zofran IV Q8H PRN Nausea And Vomiting Sodium Chloride 10 ml 01/09/20 10:00 01/09/20 22:55 Sodium Chloride Flush Syringe 10 Ml IV 10 ml BID BRO Administration Sodium Chloride 10 ml 01/08/20 23:14 Sodium Chloride Flush Syringe 10 Ml IV PRN PRN LINE FLUSH Trazodone HCl 25 mg 01/09/20 22:00 01/09/20 23:51 Desyrel PO Not Given QHS [facility]O
[2020-01-10] MEDS: cefTRIAXone/NS 1 GM/50 ML 1 GM/50 ML BAG IV SCH (12:40)
--- NOTE | 2020-01-10 12:59 | Progress Note ---
Assessment and Plan Assessment and plan: Patient is a 69-year-old -[place] female with known history of dementia, diabetes mellitus and pulmonary embolism was brought into the emergency room for decreased responsiveness, lethargy and hypotension. According to home health nurse patient has become less active and blood pressure was said to be low. She was brought to the emergency room for evaluation. Further history cannot be obtained from patient. Upon arrival in the emergency room patient had a low-grade fever. Work-up in the emergency room reveals elevated white blood cell count of 13.5, elevated BUN and creatinine 30 and 1.1 respectively. Found to be dehydrated and hypernatremic. Urinalysis shows UTI. Patient subsequently started on IV fluid and empiric IV antibiotics admitted for further evaluation. 01/08. Patient seen and examined at bedside this month. Patient not talking much this morning. Discussed case with patient spouse [patient usually does not talk much due to possible underlying dementia]. Started patient on her home medications today. Sodium slightly elevated from yesterday-162. Switch to hyp otonic solution after resuscitation. Monitor BMP 01/09. More awake today. Sodium is improving. Has tachycardia today. Received a dose of metoprolol and is on telemetry. No arrhythmias noted. Has no congestion on chest xray. Will continue IV hydration for now. She needs assistance with meals due to advanced dementia. - Patient Problems (1) Hypernatremia Current Visit: Yes Status: Acute Plan to address problem: Continue hypotonic solution. Trend sodium levels. Target sodium not more than 9-10meq increase per day Nephrology following (2) Sepsis Current Visit: Yes Status: Acute Qualifiers: Sepsis type: sepsis due to unspecified organism Sepsis acute organ dysfunction status: unspecified Qualified Code(s): A41.9 - Sepsis, unspecified organism Plan to address problem: From urinary tract infection Blood culture and urine cultures negative so far Continue IV antibiotics. Monitor vital signs closely (3) UTI (urinary tract infection) Current Visit: Yes Status: Acute Qualifiers: Urinary tract infection type: acute cystitis Hematuria presence: without hematuria Qualified Code(s): N30.00 - Acute cystitis without hematuria Plan to address problem: Continue antibiotics Urine cultures negative so far (4) Bilateral pulmonary embolism Current Visit: No Status: Chronic Plan to address problem: Had pulmonary embolism 7 months ago. As per pulmonology, patient needs indefinite anticoagulation Continue Eliquis 5 mg twice daily (5) Uncontrolled diabetes mellitus Current Visit: No Status: Acute Plan to address problem: Patient takes metformin 500 mg daily at home Had episode of hypoglycemia yesterday. Discontinue lispro for now Check hemoglobin A1c (6) DVT prophylaxis Current Visit: No Status: Acute Plan to address problem: Patient is on full anticoagulation for bilateral PE History Interval history: Patient seen and examined at bedside this morning. Patient slightly tachycardic this a.m. Metoprolol one-time dose given. Continue IV hydration for now. Continue to monitor on telemetry. Check TSH. Hospitalist Physical - Constitutional Vitals: Temp Pulse Resp BP Pulse Ox 98.5 F 111 H 18 112/62 99 01/10/20 04:54 01/10/20 04:54 01/10/20 04:54 01/10/20 04:54 01/10/20 04:54 General appearance: Present: no acute distress, well-nourished - EENT Eyes: Present: PERRL - Neck Neck: Present: supple - Respiratory Respiratory: bilateral: CTA - Cardiovascular Heart Sounds: Present: S1 & S2 - Extremities Extremities: No edema - Abdominal General gastrointestinal: soft, non-tender, non-distended, normal bowel sounds - Neurologic Neurologic: CNII-XII intact Results - Labs CBC & Chem 7: 01/10/20 10:10 01/10/20 05:23 Labs: Laboratory Last Values WBC 13.4 K/mm3 (4.5-11.0) H 01/10/20 10:10 RBC 3.83 M/mm3 (3.65-5.03) 01/10/20 10:10 Hgb 11.4 gm/dl (10.1-14.3) 01/10/20 10:10 Hct 34.7 % (30.3-42.9) D 01/10/20 10:10 MCV 91 fl (79-97) 01/10/20 10:10 MCH 30 pg (28-32) 01/10/20 10:10 MCHC 33 % (30-34) 01/10/20 10:10 RDW 14.2 % (13.2-15.2) 01/10/20 10:10 Plt Count 201 K/mm3 (140-440) 01/10/20 10:10 Lymph % (Auto) 7.2 % (13.4-35.0) L 01/10/20 10:10 [place] % (Auto) 2.1 % (0.0-7.3) 01/10/20 10:10 Eos % (Auto) 0.3 % (0.0-4.3) 01/10/20 10:10 Baso % (Auto) 0.4 % (0.0-1.8) 01/10/20 10:10 Lymph # 1.0 K/mm3 (1.2-5.4) L 01/10/20 10:10 [place] # 0.3 K/mm3 (0.0-0.8) 01/10/20 10:10 Eos # 0.0 K/mm3 (0.0-0.4) 01/10/20 10:10 Baso # 0.1 K/mm3 (0.0-0.1) 01/10/20 10:10 Add Manual Diff Complete 01/08/20 16:29 Total Counted 100 01/08/20 16:29 Seg Neutrophils % 90.0 % (40.0-70.0) H 01/10/20 10:10 Seg Neuts % (Manual) 85.0 % (40.0-70.0) H 01/08/20 16:29 Band Neutrophils % 0 % 01/08/20 16:29 Lymphocytes % (Manual) 11.0 % (13.4-35.0) L 01/08/20 16:29 Reactive Lymphs % (Man) 0 % 01/08/20 16:29 Monocytes % (Manual) 3.0 % (0.0-7.3) 01/08/20 16:29 Eosinophils % (Manual) 1.0 % (0.0-4.3) 01/08/20 16:29 Basophils % (Manual) 0 % (0.0-1.8) 01/08/20 16:29 Metamyelocytes % 0 % 01/08/20 16:29 Myelocytes % 0 % 01/08/20 16:29 Promyelocytes % 0 % 01/08/20 16:29 Blast Cells % 0 % 01/08/20 16:29 Nucleated RBC % Not Reportable 01/08/20 16:29 Seg Neutrophils # 12.0 K/mm3 (1.8-7.7) H 01/10/20 10:10 Seg Neutrophils # Man 11.5 K/mm3 (1.8-7.7) H 01/08/20 16:29 Band Neutrophils # 0.0 K/mm3 01/08/20 16:29 Lymphocytes # (Manual) 1.5 K/mm3 (1.2-5.4) 01/08/20 16:29 Abs React Lymphs (Man) 0.0 K/mm3 01/08/20 16:29 Monocytes # (Manual) 0.4 K/mm3 (0.0-0.8) 01/08/20 16:29 Eosinophils # (Manual) 0.1 K/mm3 (0.0-0.4) 01/08/20 16: Basophils # (Manual) 0.0 K/mm3 (0.0-0.1) 01/08/20 16:29 Metamyelocytes # 0.0 K/mm3 01/08/20 16:29 Myelocytes # 0.0 K/mm3 01/08/20 16:29 Promyelocytes # 0.0 K/mm3 01/08/20 16:29 Blast Cells # 0.0 K/mm3 01/08/20 16:29 WBC Morphology Not Reportable 01/08/20 16:29 Hypersegmented Neuts Not Reportable 01/08/20 16:29 Hyposegmented Neuts Not Reportable 01/08/20 16:29 Hypogranular Neuts Not Reportable 01/08/20 16:29 Smudge Cells Not Reportable 01/08/20 16:29 Toxic Granulation Not Reportable 01/08/20 16:29 Toxic Vacuolation Not Reportable 01/08/20 16:29 Dohle Bodies Not Reportable 01/08/20 16:29 Pelger-Huet Anomaly Not Reportable 01/08/20 16:29 Lata Rods Not Reportable 01/08/20 16:29 Platelet Estimate Not Reportable 01/08/20 16:29 Clumped Platelets Not Reportable 01/08/20 16:29 Plt Clumps, EDTA Not Reportable 01/08/20 16:29 Large Platelets Not Reportable 01/08/20 16:29 Giant Platelets Not Reportable 01/08/20 16:29 Platelet Satelliting Not Reportable 01/08/20 16:29 Plt Morphology Comment Not Reportable 01/08/20 16:29 RBC Morphology Normal 01/08/20 16:29 Dimorphic RBCs Not Reportable 01/08/20 16:29 Polychromasia Not Reportable 01/08/20 16:29 Hypochromasia Not Reportable 01/08/20 16:29 Poikilocytosis Not Reportable 01/08/20 16:29 Anisocytosis Not Reportable 01/08/20 16:29 Microcytosis Not Reportable 01/08/20 16:29 Macrocytosis Not Reportable 01/08/20 16:29 Spherocytes Not Reportable 01/08/20 16:29 Pappenheimer Bodies Not Reportable 01/08/20 16:29 Sickle Cells Not Reportable 01/08/20 16:29 Target Cells Not Reportable 01/08/20 16:29 Tear Drop Cells Not Reportable 01/08/20 16:29 Ovalocytes Not Reportable 01/08/20 16:29 Helmet Cells Not Reportable 01/08/20 16:29 [place] Bodies Not Reportable 01/08/20 16:29 [place] Rings Not Reportable 01/08/20 16:29 [place] Cells Not Reportable 01/08/20 16:29 Bite Cells Not Reportable 01/08/20 16:29 Crenated Cell Not Reportable 01/08/20 16:29 Elliptocytes Not Reportable 01/08/20 16:29 Acanthocytes (Spur) Not Reportable 01/08/20 16:29 Rouleaux Not Reportable 01/08/20 16:29 Hemoglobin C Crystals Not Reportable 01/08/20 16:29 Schistocytes Not Reportable 01/08/20 16:29 Malaria parasites Not Reportable 01/08/20 16:29 [place] Bodies Not Reportable 01/08/20 16:29 Hem Pathologist Commnt No 01/08/20 16:29 PT 17.1 Sec. (12.2-14.9) H 01/09/20 05:52 INR 1.36 (0.87-1.13) H 01/09/20 05:52 Sodium 155 mmol/L (137-145) H 01/10/20 05:23 Potassium 3.8 mmol/L (3.6-5.0) D 01/10/20 05:23 Chloride 122.8 mmol/L (98-107) H 01/10/20 05:23 Carbon Dioxide 21 mmol/L (22-30) L 01/10/20 05:23 Anion Gap 15 mmol/L 01/10/20 05:23 BUN 19 mg/dL (7-17) H 01/10/20 05:23 Creatinine 0.7 mg/dL (0.6-1.2) 01/10/20 05:23 Estimated GFR > 60 ml/min 01/10/20 05:23 BUN/Creatinine Ratio 27 % 01/10/20 05:23 Glucose 85 mg/dL (65-100) 01/10/20 05:23 POC Glucose 142 (70-105) H 01/10/20 11:57 Lactic Acid 1.20 mmol/L (0.7-2.0) 01/09/20 05:52 Calcium 8.4 mg/dL (8.4-10.2) 01/10/20 05:23 Magnesium 2.10 mg/dL (1.7-2.3) 01/10/20 05:23 Total Bilirubin 0.40 mg/dL (0.1-1.2) 01/08/20 16:29 AST 48 units/L (5-40) H 01/08/20 16:29 ALT 33 units/L (7-56) 01/08/20 16:29 Alkaline Phosphatase 44 units/L (35-129) 01/08/20 16:29 Total Protein 6.5 g/dL (6.3-8.2) 01/08/20 16:29 Albumin 2.5 g/dL (3.9-5) L 01/08/20 16:29 Albumin/Globulin Ratio 0.6 % 01/08/20 16:29 TSH 2.440 mlU/mL (0.270-4.200) 01/10/20 10:10 Urine Color [place] (Yellow) 01/08/20 Unknown Urine Turbidity Cloudy (Clear) 01/08/20 Unknown Urine pH 5.0 (5.0-7.0) 01/08/20 Unknown Ur Specific [place] 1.018 (1.003-1.030) 01/08/20 Unknown Urine Protein 30 mg/dl mg/dL (Negative) 01/08/20 Unknown Urine Glucose (UA) Neg mg/dL (Negative) 01/08/20 Unknown Urine Ketones Neg mg/dL (Negative) 01/08/20 Unknown Urine Blood Mod (Negative) 01/08/20 Unknown Urine Nitrite Neg (Negative) 01/08/20 Unknown Urine Bilirubin Neg (Negative) 01/08/20 Unknown Urine Urobilinogen < 2.0 mg/dL (<2.0) 01/08/20 Unknown Ur Leukocyte Esterase Sm (Negative) 01/08/20 Unknown Urine WBC (Auto) 11.0 /HPF (0.0-6.0) H 01/08/20 Unknown Urine RBC (Auto) 7.0 /HPF (0.0-6.0) 01/08/20 Unknown U Epithel Cells (Auto) < 1.0 /HPF (0-13.0) 01/08/20 Unknown Urine Bacteria (Auto) 1+ /HPF (Negative) 01/08/20 Unknown Urine Mucus 2+ /HPF 01/08/20 Unknown Urine Yeast (Budding) 1+ /HPF 01/08/20 Unknown Microbiology: Microbiology 01/08/20 16:40 Peripheral/Venous Blood Culture - Preliminary NO GROWTH AFTER 24 HOURS 01/08/20 16:29 Peripheral/Venous Blood Culture - Preliminary NO GROWTH AFTER 24 HOURS Mejía/IV: Voiding Method Diaper Active Medications - Current Medications Current Medications: Generic Name Dose Route Start Last Admin Trade Name Freq PRN Reason Stop Dose Admin Acetaminophen 650 mg 01/08/20 23:14 Tylenol PO Q4H PRN Pain MILD(1-3)/Fever >100.5/GARCIA Apixaban 5 mg 01/09/20 13:00 01/10/20 10:53 Eliquis PO Not Given Q12HR BRO Protocol Atorvastatin Calcium 10 mg 01/09/20 22:00 01/09/20 23:51 Atorvastatin PO Not Given QHS BRO Dextrose 0 ml 01/08/20 23:14 01/09/20 21:45 D50w (25gm) Syringe IV 20 ml Q30MIN PRN Administration Hypoglycemia Protocol Donepezil HCl 10 mg 01/09/20 22:00 01/09/20 23:50 Aricept PO Not Given QHS BRO Sodium Chloride 1,000 mls @ 125 mls/hr 01/09/20 13:00 Nacl 0.45% 1000 Ml IV DIRECT BRO Ceftriaxone Sodium 1 gm in 50 mls @ 100 mls/hr 01/09/20 13:00 01/09/20 12:49 Rocephin/Ns 1 Gm/50 Ml IV 100 mls/hr Q24H BRO Administration Protocol Dextrose 1,000 mls @ 75 mls/hr 01/09/20 23:00 01/09/20 22:54 D5w IV 75 mls/hr DIRECT BRO Administration Insulin Human Lispro 0 unit 01/09/20 07:30 01/10/20 10:53 Humalog SUB-Q Not Given ACHS [facility] Protocol Magnesium Hydroxide 30 ml 01/08/20 23:14 Milk Of Magnesia PO Q4H PRN Constipation Mirtazapine 15 mg 01/09/20 22:00 01/09/20 23:55 Remeron PO Not Given QHS BRO Ondansetron HCl 4 mg 01/08/20 23:14 Zofran IV Q8H PRN Nausea And Vomiting Sodium Chloride 10 ml 01/09/20 10:00 01/09/20 22:55 Sodium Chloride Flush Syringe 10 Ml IV 10 ml BID BRO Administration Sodium Chloride 10 ml 01/08/20 23:14 Sodium Chloride Flush Syringe 10 Ml IV PRN PRN LINE FLUSH Trazodone HCl 25 mg 01/09/20 22:00 01/09/20 23:51 Desyrel PO Not Given QHS [facility] Nutrition/Malnutrition Assess - Dietary Evaluation Nutrition/Malnutrition Findings: Nutrition Notes Start: 01/09/20 12:13 Freq: Status: Active Protocol: Document 01/09/20 12:13 AB (Rec: 01/09/20 12:55 AB [id number]) Co-Sign 01/09/20 12:13 LM Nutrition Notes Need for Assessment generated from: MD Order,pulper,MST, Education Initial or Follow up Assessment Current Diagnosis Diabetes,Sepsis Other Pertinent Diagnosis UTI, dementia, pulmonary embolism Current Diet Cardiac/Consistent Carbohydrate Labs/Tests Na 162 Pertinent Medications Reviewed Height 5 ft 2 in Weight 42.7 kg [place] Body Weight (kg) 50.00 BMI 17.2 Weight Status Underweight Subjective/Other Information Consult for diet education and MST. Pt has Hx of difficulty chewing. Pt is nonverbal. No meal intakes recorded. Pressure wound to sacrum and heel. 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 No Is Patient Ambulatory and/or Out of Bed No REE-([place]-confined to bed) 1086.504 Kcal/Kg value to use for calculation 35 Approximate Energy Requirements Using 1495 kcal/Kg Calculation Used for Recommendations Kcal/kg Additional Notes Protein needs are: 52-64 g (1. 2-1.5 g/kg) Fluid needs are: 1 ml/kcal Nutrition Intervention Change Diet Order: Continue Add Supplement/Snack (indicate name/kcal Ensure Enlive BID /protein ) Provides kCal: 700 Provides Protein (gm) 40 Goal #1 Wt gain Goal #2 Consume 75% of calorie and protein needs Anticipated Discharge Needs: Cardiac/Consistent carb diet Follow-Up By: 01/12/20 Additional Comments Follow for intakes and ONS tolerance
[2020-01-10 13:11] LABS: Blood Urea Nitrogen 19 mg/dL (7-17); Calcium 8.5 mg/dL (8.4-10.2); Hemolysis Index 16
[2020-01-10 13:17] LABS: BUN/Creatinine Ratio 32
[2020-01-10 21:58] LABS: BUN/Creatinine Ratio 24; Blood Urea Nitrogen 17 mg/dL (7-17); Calcium 8.3 mg/dL (8.4-10.2); Hemolysis Index 19
[2020-01-10] MEDS: DONEPEZIL 10 MG TAB PO SCH (23:25)
[2020-01-10] MEDS: MIRTAZAPINE 15 MG TAB PO SCH (23:26)
[2020-01-10] MEDS: traZODone 50 MG TAB PO SCH (23:26)
[2020-01-10] MEDS: DEXTROSE 5% IN WATER 1,000 ML IV SCH (23:30)
[2020-01-11 02:00] LABS: Blood Urea Nitrogen 16 mg/dL (7-17); Hemolysis Index 7
[2020-01-11 02:01] LABS: BUN/Creatinine Ratio 27
[2020-01-11 07:44] LABS: Blood Urea Nitrogen 15 mg/dL (7-17); Calcium 8.3 mg/dL (8.4-10.2); Hemolysis Index 90
[2020-01-11 07:57] LABS: BUN/Creatinine Ratio 25
[2020-01-11] MEDS: APIXABAN 5 MG TAB PO SCH ×2 (10:52→21:03)
--- NOTE | 2020-01-11 10:58 | Progress Note ---
Assessment and Plan Assessment and plan: Patient is a 69-year-old -[place] female with known history of dementia, diabetes mellitus and pulmonary embolism was brought into the emergency room for decreased responsiveness, lethargy and hypotension. According to home health nurse patient has become less active and blood pressure was said to be low. She was brought to the emergency room for evaluation. Further history cannot be obtained from patient. Upon arrival in the emergency room patient had a low-grade fever. Work-up in the emergency room reveals elevated white blood cell count of 13.5, elevated BUN and creatinine 30 and 1.1 respectively. Found to be dehydrated and hypernatremic. Urinalysis shows UTI. Patient subsequently started on IV fluid and empiric IV antibiotics admitted for further evaluation. 01/08. Patient seen and examined at bedside this month. Patient not talking much this morning. Discussed case with patient spouse [patient usually does not talk much due to possible underlying dementia]. Started patient on her home medications today. Sodium slightly elevated from yesterday-162. Switch to hypo tonic solution after resuscitation. Monitor BMP 01/09. More awake today. Sodium is improving. Has tachycardia today. Received a dose of metoprolol and is on telemetry. No arrhythmias noted. Has no congestion on chest xray. Will continue IV hydration for now. She needs assistance with meals due to advanced dementia. 01/10: Sodium is improving, will speak to family about diet and possible NGT and m edication, Her dementia may be the prohibiting factor. Anticipate discharge in 24 to 48 hrs. ?IF SHE IS BEDBOUND. Continue Antibiotics. - Patient Problems (1) Hypernatremia Current Visit: Yes Status: Acute Plan to address problem: Continue hypotonic solution. Trend sodium levels. Target sodium not more than 9-10meq increase per day Nephrology following (2) Sepsis Current Visit: Yes Status: Acute Qualifiers: Sepsis type: sepsis due to unspecified organism Sepsis acute organ dysfunction status: unspecified Qualified Code(s): A41.9 - Sepsis, unspecified organism Plan to address problem: From urinary tract infection Blood culture and urine cultures negative so far Continue IV antibiotics. Monitor vital signs closely (3) UTI (urinary tract infection) Current Visit: Yes Status: Acute Qualifiers: Urinary tract infection type: acute cystitis Hematuria presence: without hematuria Qualified Code(s): N30.00 - Acute cystitis without hematuria Plan to address problem: Continue antibiotics Urine cultures negative so far (4) Bilateral pulmonary embolism Current Visit: No Status: Chronic Plan to address problem: Had pulmonary embolism 7 months ago. As per pulmonology, patient needs indefinite anticoagulation Continue Eliquis 5 mg twice daily (5) Uncontrolled diabetes mellitus Current Visit: No Status: Acute Plan to address problem: Patient takes metformin 500 mg daily at home Had episode of hypoglycemia yesterday. Discontinue lispro for now Check hemoglobin A1c (6) DVT prophylaxis Current Visit: No Status: Acute Plan to address problem: Patient is on full anticoagulation for bilateral PE History Interval history: Patient seen and examined, still lethargic. Follow some commands but per nursing staff, not eating yet or opening her mouth. Hospitalist Physical - Physical exam Narrative exam: General appearance: Present: no acute distress, well-nourished, Lethargic - EENT Eyes: Present: PERRL - Neck Neck: Present: supple - Respiratory Respiratory: bilateral: CTA - Cardiovascular Heart Sounds: Present: S1 & S2 - Extremities Extremities: No edema - Abdominal General gastrointestinal: soft, non-tender, non-distended, normal bowel sounds - Neurologic Neurologic: CNII-XII intact - Constitutional Vitals: Temp Pulse Resp BP Pulse Ox 99.2 F 75 18 87/56 95 01/11/20 05:45 01/11/20 05:45 01/11/20 05:45 01/11/20 05:45 01/11/20 05:45 General appearance: Present: no acute distress, well-nourished Results - Labs CBC & Chem 7: 01/10/20 10:10 01/11/20 07:06 Labs: Laboratory Last Values WBC 13.4 K/mm3 (4.5-11.0) H 01/10/20 10:10 RBC 3.83 M/mm3 (3.65-5.03) 01/10/20 10:10 Hgb 11.4 gm/dl (10.1-14.3) 01/10/20 10:10 Hct 34.7 % (30.3-42.9) D 01/10/20 10:10 MCV 91 fl (79-97) 01/10/20 10:10 MCH 30 pg (28-32) 01/10/20 10:10 MCHC 33 % (30-34) 01/10/20 10:10 RDW 14.2 % (13.2-15.2) 01/10/20 10:10 Plt Count 201 K/mm3 (140-440) 01/10/20 10:10 Lymph % (Auto) 7.2 % (13.4-35.0) L 01/10/20 10:10 [place] % (Auto) 2.1 % (0.0-7.3) 01/10/20 10:10 Eos % (Auto) 0.3 % (0.0-4.3) 01/10/20 10:10 Baso % (Auto) 0.4 % (0.0-1.8) 01/10/20 10:10 Lymph # 1.0 K/mm3 (1.2-5.4) L 01/10/20 10:10 [place] # 0.3 K/mm3 (0.0-0.8) 01/10/20 10:10 Eos # 0.0 K/mm3 (0.0-0.4) 01/10/20 10:10 Baso # 0.1 K/mm3 (0.0-0.1) 01/10/20 10:10 Add Manual Diff Complete 01/08/20 16:29 Total Counted 100 01/08/20 16:29 Seg Neutrophils % 90.0 % (40.0-70.0) H 01/10/20 10:10 Seg Neuts % (Manual) 85.0 % (40.0-70.0) H 01/08/20 16:29 Band Neutrophils % 0 % 01/08/20 16:29 Lymphocytes % (Manual) 11.0 % (13.4-35.0) L 01/08/20 16:29 Reactive Lymphs % (Man) 0 % 01/08/20 16:29 Monocytes % (Manual) 3.0 % (0.0-7.3) 01/08/20 16:29 Eosinophils % (Manual) 1.0 % (0.0-4.3) 01/08/20 16:29 Basophils % (Manual) 0 % (0.0-1.8) 01/08/20 16:29 Metamyelocytes % 0 % 01/08/20 16:29 Myelocytes % 0 % 01/08/20 16:29 Promyelocytes % 0 % 01/08/20 16:29 Blast Cells % 0 % 01/08/20 16:29 Nucleated RBC % Not Reportable 01/08/20 16:29 Seg Neutrophils # 12.0 K/mm3 (1.8-7.7) H 01/10/20 10:10 Seg Neutrophils # Man 11.5 K/mm3 (1.8-7.7) H 01/08/20 16:29 Band Neutrophils # 0.0 K/mm3 01/08/20 16:29 Lymphocytes # (Manual) 1.5 K/mm3 (1.2-5.4) 01/08/20 16:29 Abs React Lymphs (Man) 0.0 K/mm3 01/08/20 16:29 Monocytes # (Manual) 0.4 K/mm3 (0.0-0.8) 01/08/20 16: Eosinophils # (Manual) 0.1 K/mm3 (0.0-0.4) 01/08/20 16:29 Basophils # (Manual) 0.0 K/mm3 (0.0-0.1) 01/08/20 16:29 Metamyelocytes # 0.0 K/mm3 01/08/20 16:29 Myelocytes # 0.0 K/mm3 01/08/20 16:29 Promyelocytes # 0.0 K/mm3 01/08/20 16:29 Blast Cells # 0.0 K/mm3 01/08/20 16:29 WBC Morphology Not Reportable 01/08/20 16:29 Hypersegmented Neuts Not Reportable 01/08/20 16:29 Hyposegmented Neuts Not Reportable 01/08/20 16:29 Hypogranular Neuts Not Reportable 01/08/20 16:29 Smudge Cells Not Reportable 01/08/20 16:29 Toxic Granulation Not Reportable 01/08/20 16:29 Toxic Vacuolation Not Reportable 01/08/20 16:29 Dohle Bodies Not Reportable 01/08/20 16:29 Pelger-Huet Anomaly Not Reportable 01/08/20 16:29 Lata Rods Not Reportable 01/08/20 16:29 Platelet Estimate Not Reportable 01/08/20 16:29 Clumped Platelets Not Reportable 01/08/20 16:29 Plt Clumps, EDTA Not Reportable 01/08/20 16:29 Large Platelets Not Reportable 01/08/20 16:29 Giant Platelets Not Reportable 01/08/20 16:29 Platelet Satelliting Not Reportable 01/08/20 16:29 Plt Morphology Comment Not Reportable 01/08/20 16:29 RBC Morphology Normal 01/08/20 16:29 Dimorphic RBCs Not Reportable 01/08/20 16:29 Polychromasia Not Reportable 01/08/20 16:29 Hypochromasia Not Reportable 01/08/20 16:29 Poikilocytosis Not Reportable 01/08/20 16:29 Anisocytosis Not Reportable 01/08/20 16:29 Microcytosis Not Reportable 01/08/20 16:29 Macrocytosis Not Reportable 01/08/20 16:29 Spherocytes Not Reportable 01/08/20 16:29 Pappenheimer Bodies Not Reportable 01/08/20 16:29 Sickle Cells Not Reportable 01/08/20 16:29 Target Cells Not Reportable 01/08/20 16:29 Tear Drop Cells Not Reportable 01/08/20 16:29 Ovalocytes Not Reportable 01/08/20 16:29 Helmet Cells Not Reportable 01/08/20 16:29 Lombardi-[place] Bodies Not Reportable 01/08/20 16:29 [place] Rings Not Reportable 01/08/20 16:29 Leonidas Cells Not Reportable 01/08/20 16:29 Bite Cells Not Reportable 01/08/20 16:29 Crenated Cell Not Reportable 01/08/20 16:29 Elliptocytes Not Reportable 01/08/20 16:29 Acanthocytes (Spur) Not Reportable 01/08/20 16:29 Rouleaux Not Reportable 01/08/20 16:29 Hemoglobin C Crystals Not Reportable 01/08/20 16:29 Schistocytes Not Reportable 01/08/20 16:29 Malaria parasites Not Reportable 01/08/20 16:29 Gideon Bodies Not Reportable 01/08/20 16:29 Hem Pathologist Commnt No 01/08/20 16:29 PT 17.1 Sec. (12.2-14.9) H 01/09/20 05:52 INR 1.36 (0.87-1.13) H 01/09/20 05:52 Sodium 151 mmol/L (137-145) H 01/11/20 07:06 Potassium 4.0 mmol/L (3.6-5.0) D 01/11/20 07:06 Chloride 118.7 mmol/L (98-107) H 01/11/20 07:06 Carbon Dioxide 21 mmol/L (22-30) L 01/11/20 07:06 Anion Gap 15 mmol/L 01/11/20 07:06 BUN 15 mg/dL (7-17) 01/11/20 07:06 Creatinine 0.6 mg/dL (0.6-1.2) 01/11/20 07:06 Estimated GFR > 60 ml/min 01/11/20 07:06 BUN/Creatinine Ratio 25 % 01/11/20 07:06 Glucose 107 mg/dL (65-100) H 01/11/20 07:06 POC Glucose 118 (70-105) H 01/11/20 08:03 Hemoglobin A1c 5.3 % (4-6) 01/11/20 00:45 Lactic Acid 1.20 mmol/L (0.7-2.0) 01/09/20 05:52 Calcium 8.3 mg/dL (8.4-10.2) L 01/11/20 07:06 Magnesium 2.10 mg/dL (1.7-2.3) 01/10/20 05:23 Total Bilirubin 0.40 mg/dL (0.1-1.2) 01/08/20 16:29 AST 48 units/L (5-40) H 01/08/20 16:29 ALT 33 units/L (7-56) 01/08/20 16:29 Alkaline Phosphatase 44 units/L (35-129) 01/08/20 16:29 Total Protein 6.5 g/dL (6.3-8.2) 01/08/20 16:29 Albumin 2.5 g/dL (3.9-5) L 01/08/20 16:29 Albumin/Globulin Ratio 0.6 % 01/08/20 16:29 TSH 2.440 mlU/mL (0.270-4.200) 01/10/20 10:10 Urine Color [place] (Yellow) 01/08/20 Unknown Urine Turbidity Cloudy (Clear) 01/08/20 Unknown Urine pH 5.0 (5.0-7.0) 01/08/20 Unknown Ur Specific [place] 1.018 (1.003-1.030) 01/08/20 Unknown Urine Protein 30 mg/dl mg/dL (Negative) 01/08/20 Unknown Urine Glucose (UA) Neg mg/dL (Negative) 01/08/20 Unknown Urine Ketones Neg mg/dL (Negative) 01/08/20 Unknown Urine Blood Mod (Negative) 01/08/20 Unknown Urine Nitrite Neg (Negative) 01/08/20 Unknown Urine Bilirubin Neg (Negative) 01/08/20 Unknown Urine Urobilinogen < 2.0 mg/dL (<2.0) 01/08/20 Unknown Ur Leukocyte Esterase Sm (Negative) 01/08/20 Unknown Urine WBC (Auto) 11.0 /HPF (0.0-6.0) H 01/08/20 Unknown Urine RBC (Auto) 7.0 /HPF (0.0-6.0) 01/08/20 Unknown U Epithel Cells (Auto) < 1.0 /HPF (0-13.0) 01/08/20 Unknown Urine Bacteria (Auto) 1+ /HPF (Negative) 01/08/20 Unknown Urine Mucus 2+ /HPF 01/08/20 Unknown Urine Yeast (Budding) 1+ /HPF 01/08/20 Unknown Microbiology: Microbiology 01/08/20 16:40 Peripheral/Venous Blood Culture - Preliminary NO GROWTH AFTER 48 HOURS 01/08/20 16:29 Peripheral/Venous Blood Culture - Preliminary NO GROWTH AFTER 48 HOURS 01/08/20 Unknown Urine,Clean Catch Urine Culture - Preliminary NO GROWTH AFTER 24 HOURS Mejía/IV: Voiding Method Diaper Active Medications - Current Medications Current Medications: Generic Name Dose Route Start Last Admin Trade Name Freq PRN Reason Stop Dose Admin Acetaminophen 650 mg 01/08/20 23:14 Tylenol PO Q4H PRN Pain MILD(1-3)/Fever >100.5/GARCIA Apixaban 5 mg 01/09/20 13:00 01/10/20 23:26 Eliquis PO Not Given Q12HR BRO Protocol Atorvastatin Calcium 10 mg 01/09/20 22:00 01/10/20 23:26 Atorvastatin PO Not Given QHS BRO Dextrose 0 ml 01/08/20 23:14 01/09/20 21:45 D50w (25gm) Syringe IV 20 ml Q30MIN PRN Administration Hypoglycemia Protocol Donepezil HCl 10 mg 01/09/20 22:00 01/10/20 23:25 Aricept PO Not Given QHS BRO Sodium Chloride 1,000 mls @ 125 mls/hr 01/09/20 13:00 Nacl 0.45% 1000 Ml IV DIRECT BRO Ceftriaxone Sodium 1 gm in 50 mls @ 100 mls/hr 01/09/20 13:00 01/10/20 12:40 Rocephin/Ns 1 Gm/50 Ml IV 100 mls/hr Q24H BRO Administration Protocol Dextrose 1,000 mls @ 75 mls/hr 01/09/20 23:00 01/10/20 23:30 D5w IV 75 mls/hr DIRECT BRO Administration Magnesium Hydroxide 30 ml 01/08/20 23:14 Milk Of Magnesia PO Q4H PRN Constipation Mirtazapine 15 mg 01/09/20 22:00 01/10/20 23:26 Remeron PO Not Given QHS BRO Ondansetron HCl 4 mg 01/08/20 23:14 Zofran IV Q8H PRN Nausea And Vomiting Sodium Chloride 10 ml 01/09/20 10:00 01/10/20 23:27 Sodium Chloride Flush Syringe 10 Ml IV 10 ml BID BRO Administration Sodium Chloride 10 ml 01/08/20 23:14 Sodium Chloride Flush Syringe 10 Ml IV PRN PRN LINE FLUSH Trazodone HCl 25 mg 01/09/20 22:00 01/10/20 23:26 Desyrel PO Not Given QHS BRO Nutrition/Malnutrition Assess - Dietary Evaluation Nutrition/Malnutrition Findings: Nutrition Notes Start: 01/09/20 12:13 Freq: Status: Active Protocol: Document 01/09/20 12:13 AB (Rec: 01/09/20 12:55 AB [id number]) Co-Sign 01/09/20 12:13 LM Nutrition Notes Need for Assessment generated from: MD Order,supervisor park workers,MST, Education Initial or Follow up Assessment Current Diagnosis Diabetes,Sepsis Other Pertinent Diagnosis UTI, dementia, pulmonary embolism Current Diet Cardiac/Consistent Carbohydrate Labs/Tests Na 162 Pertinent Medications Reviewed Height 5 ft 2 in Weight 42.7 kg [place] Body Weight (kg) 50.00 BMI 17.2 Weight Status Underweight Subjective/Other Information Consult for diet education and MST. Pt has Hx of difficulty chewing. Pt is nonverbal. No meal intakes recorded. Pressure wound to sacrum and heel. 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 No Is Patient Ambulatory and/or Out of Bed No REE-([facility]-confined to bed) 1086.504 Kcal/Kg value to use for calculation 35 Approximate Energy Requirements Using 1495 kcal/Kg Calculation Used for Recommendations Kcal/kg Additional Notes Protein needs are: 52-64 g (1. 2-1.5 g/kg) Fluid needs are: 1 ml/kcal Nutrition Intervention Change Diet Order: Continue Add Supplement/Snack (indicate name/kcal Ensure Enlive BID /protein ) Provides kCal: 700 Provides Protein (gm) 40 Goal #1 Wt gain Goal #2 Consume 75% of calorie and protein needs Anticipated Discharge Needs: Cardiac/Consistent carb diet Follow-Up By: 01/12/20 Additional Comments Follow for intakes and ONS tolerance
--- NOTE | 2020-01-11 12:42 | Progress Note ---
Assessment and Plan Impression * Hypernatremia * Dehydration * Dementia * Hypokalemia * Diabetes Recommendations * Patient clinically appears to be dehydrated. * Hypernatremia is most likely secondary to free water deficit * Chest x-ray from 01/10/2020 essentially negative * Continue hypotonic IV fluid for now * Awaiting results of urine studies * Monitor fluid status and electrolytes closely * Avoid nephrotoxins * Magnesium and potassium level is now normal Subjective Date of service: 01/11/20 Interval history: Patient appears comfortable today. Objective - Vital Signs Vital signs: Vital Signs - 12hr 01/11/20 05:45 Temperature 99.2 F Pulse Rate 75 Respiratory 18 Rate Blood Pressure 87/56 O2 Sat by Pulse 95 Oximetry - General Appearance General appearance: chronically ill, frail, other (Pleasant -[place] female) EENT: PERRL, mucous membranes moist Neck: no JVD, no thyromegaly Respiratory: Present: Clear to Ascultation Cardiology: regular, normal heart rate Gastrointestinal: normal, normoactive bowel sounds Integumentary: other (No edema) - Lab 01/10/20 10:10 01/11/20 07:06 Most recent lab results Calcium 8.3 mg/dL (8.4-10.2) L 01/11/20 07:06 Magnesium 2.10 mg/dL (1.7-2.3) 01/10/20 05:23 Medications & Allergies - Medications Allergies/Adverse Reactions: Allergies No Known Allergies Allergy (Unverified 06/23/14 09:54) Home Medications: Home Medications Medication Instructions Recorded Confirmed Last Taken Type AtorvaSTATin 10 mg PO QHS 05/06/19 05/06/19 05/05/19 History Donepezil HCl [Donepezil HCl Odt] 10 mg PO QHS 05/06/19 05/06/19 Unknown History LORazepam [Lorazepam] 0.5 mg PO BID 05/06/19 05/06/19 Unknown History Melatonin [Melatonin 10MG CAP] 10 mg PO QHS 05/06/19 05/06/19 05/05/19 History Metformin HCl [Metformin HCl ER] 500 mg PO Q2D 05/06/19 05/06/19 05/05/19 History Apixaban [Eliquis] 5 mg PO BID 30 Days #60 tablet 05/08/19 Unknown Rx Apixaban [Eliquis] 10 mg PO BID 7 Days #14 tablet 05/08/19 Unknown Rx Active Medications: Generic Name Dose Route Start Last Admin Trade Name Freq PRN Reason Stop Dose Admin Acetaminophen 650 mg 01/08/20 23:14 Tylenol PO Q4H PRN Pain MILD(1-3)/Fever >100.5/GARCIA Apixaban 5 mg 01/09/20 13:00 01/10/20 23:26 Eliquis PO Not Given Q12HR BRO Protocol Atorvastatin Calcium 10 mg 01/09/20 22:00 01/10/20 23:26 Atorvastatin PO Not Given QHS BRO Dextrose 0 ml 01/08/20 23:14 01/09/20 21:45 D50w (25gm) Syringe IV 20 ml Q30MIN PRN Administration Hypoglycemia Protocol Donepezil HCl 10 mg 01/09/20 22:00 01/10/20 23:25 Aricept PO Not Given QHS BRO Sodium Chloride 1,000 mls @ 125 mls/hr 01/09/20 13:00 Nacl 0.45% 1000 Ml IV DIRECT BRO Ceftriaxone Sodium 1 gm in 50 mls @ 100 mls/hr 01/09/20 13:00 01/10/20 12:40 Rocephin/Ns 1 Gm/50 Ml IV 100 mls/hr Q24H BRO Administration Protocol Dextrose 1,000 mls @ 75 mls/hr 01/09/20 23:00 01/10/20 23:30 D5w IV 75 mls/hr DIRECT BRO Administration Magnesium Hydroxide 30 ml 01/08/20 23:14 Milk Of Magnesia PO Q4H PRN Constipation Mirtazapine 15 mg 01/09/20 22:00 01/10/20 23:26 Remeron PO Not Given QHS BRO Ondansetron HCl 4 mg 01/08/20 23:14 Zofran IV Q8H PRN Nausea And Vomiting Sodium Chloride 10 ml 01/09/20 10:00 01/10/20 23:27 Sodium Chloride Flush Syringe 10 Ml IV 10 ml BID BRO Administration Sodium Chloride 10 ml 01/08/20 23:14 Sodium Chloride Flush Syringe 10 Ml IV PRN PRN LINE FLUSH Trazodone HCl 25 mg 01/09/20 22:00 01/10/20 23:26 Desyrel PO Not Given QHS BRO
[2020-01-11] MEDS: cefTRIAXone/NS 1 GM/50 ML 1 GM/50 ML BAG IV SCH (12:59)
--- NOTE | 2020-01-11 14:01 | XRay Report ---
ABDOMEN 1 VIEW 1:28 PM INDICATION / CLINICAL INFORMATION: ngt placement. COMPARISON: 01/10/20 FINDINGS: TUBES / LINES: Esophagogastric tube has been placed into the stomach. BOWEL GAS PATTERN: Stomach is elevated along with the left hemidiaphragm, unchanged. No bowel dilatio n. FREE AIR / EXTRALUMINAL GAS: None seen. ADDITIONAL FINDINGS: No significant additional findings. IMPRESSION: 1. Esophagogastric tube in expected position. Signer Name: Kelly Linder MD Signed: 01/11/2020 1:57 PM Workstation Name: [employer]
[2020-01-11] MEDS ORDERED: SIMPLE SYRUP 15 ML FEEDTUBE PRN ×2 (16:25)
[2020-01-11] MEDS ORDERED: LIPASE 10,500/PROTEASE 25,000/AMYLASE 43,750 (UNITS) DR CAP FEEDTUBE PRN (16:25)
[2020-01-11] MEDS ORDERED: SODIUM BICARBONATE 325 MG TAB FEEDTUBE PRN (16:25)
[2020-01-11] MEDS: traZODone 50 MG TAB PO SCH (21:02)
[2020-01-11] MEDS: DONEPEZIL 10 MG TAB PO SCH (21:03)
[2020-01-11] MEDS: MIRTAZAPINE 15 MG TAB PO SCH (21:04)
[2020-01-11] MEDS: ACETAMINOPHEN 325 MG TAB PO PRN (22:39)
[2020-01-12 06:21] LABS: Blood Urea Nitrogen 12 mg/dL (7-17); Calcium 8.2 mg/dL (8.4-10.2); Hemolysis Index 21
[2020-01-12 06:24] LABS: BUN/Creatinine Ratio 17
--- NOTE | 2020-01-12 11:06 | Progress Note ---
Assessment and Plan Assessment and plan: Patient is a 69-year-old -[place] female with known history of dementia, diabetes mellitus and pulmonary embolism was brought into the emergency room for decreased responsiveness, lethargy and hypotension. According to home health nurse patient has become less active and blood pressure was said to be low. She was brought to the emergency room for evaluation. Further history cannot be obtained from patient. Upon arrival in the emergency room patient had a low-grade fever. Work-up in the emergency room reveals elevated white blood cell count of 13.5, elevated BUN and creatinine 30 and 1.1 respectively. Found to be dehydrated and hypernatremic. Urinalysis shows UTI. Patient subsequently started on IV fluid and empiric IV antibiotics admitted for further evaluation. 01/08. Patient seen and examined at bedside this month. Patient not talking much this morning. Discussed case with patient spouse [patient usually does not talk much due to possible underlying dementia]. Started patient on her home medications today. Sodium slightly elevated from yesterday-162. Switch to hyp otonic solution after resuscitation. Monitor BMP 01/09. More awake today. Sodium is improving. Has tachycardia today. Received a dose of metoprolol and is on telemetry. No arrhythmias noted. Has no congestion on chest xray. Will continue IV hydration for now. She needs assistance with meals due to advanced dementia. 01/10. Sodium is improving, will speak to family about diet and possible NGT and medication, Her dementia may be the prohibiting factor. Anticipate discharge in 24 to 48 hrs. ?IF SHE IS BEDBOUND. Continue Antibiotics. 01/11. Patient seen and examined at bedside this morning. She is not eating. Discussed with patients - plan for PEG placement. GI consulted. Blood culture from 01/07 grew GN rods. Repeat Blood culture sent. She is on ceftriaxone. Her sodium level is improving gradually. - Patient Problems (1) Hypernatremia Current Visit: Yes Status: Acute Plan to address problem: Continue hypotonic solution. Trend sodium levels. Target sodium not more than 9-10meq increase per day Nephrology following (2) Sepsis Current Visit: Yes Status: Acute Qualifiers: Sepsis type: sepsis due to unspecified organism Sepsis acute organ dysfunction status: unspecified Qualified Code(s): A41.9 - Sepsis, unspecified organism Plan to address problem: From urinary tract infection Blood culture - GN rods. Repeat BC sent Continue IV antibiotics. Monitor vital signs closely (3) UTI (urinary tract infection) Current Visit: Yes Status: Acute Qualifiers: Urinary tract infection type: acute cystitis Hematuria presence: without hematuria Qualified Code(s): N30.00 - Acute cystitis without hematuria Plan to address problem: Continue antibiotics Urine cultures negative so far (4) Bilateral pulmonary embolism Current Visit: No Status: Chronic Plan to address problem: Had pulmonary embolism 7 months ago. As per pulmonology, patient needs indefinite anticoagulation Continue Eliquis 5 mg twice daily (5) Uncontrolled diabetes mellitus Current Visit: No Status: Acute Plan to address problem: DM management (6) Dementia Current Visit: No Status: Chronic Plan to address problem: Continue donepezil (7) Moderate protein-calorie malnutrition Current Visit: Yes Status: Acute Plan to address problem: She is not eating well and is getting feeds through the NG tube. Added megestrol today. Discussed with - this problem has been chronic and he is open to getting a PEG placement to supplement her intake She could not follow directions during last swallow evaluation. Speech to reevaluate today GI consulted (8) DVT prophylaxis Current Visit: No Status: Acute Plan to address problem: Patient is on full anticoagulation for bilateral PE History Interval history: Patient seen and examined at bedside this morning. She is not eating. Discussed with patients - plan for PEG placement. GI consulted. Blood culture from 01/07 grew GN rods. Repeat Blood culture sent. She is on ceftriaxone. Hospitalist Physical - Constitutional Vitals: Temp Pulse Resp BP Pulse Ox 97.6 F 117 H 18 96/58 96 01/12/20 05:23 01/12/20 05:23 01/12/20 05:23 01/12/20 05:23 01/12/20 05:23 General appearance: Present: no acute distress - EENT Eyes: Present: PERRL - Neck Neck: Present: supple - Respiratory Respiratory: bilateral: CTA - Cardiovascular Rhythm: regular Heart Sounds: Present: S1 & S2 - Extremities Extremities: No edema - Abdominal General gastrointestinal: soft, non-tender, normal bowel sounds - Neurologic Neurologic: CNII-XII intact Results - Labs CBC & Chem 7: 01/10/20 10:10 01/12/20 05:40 Labs: Laboratory Last Values WBC 13.4 K/mm3 (4.5-11.0) H 01/10/20 10:10 RBC 3.83 M/mm3 (3.65-5.03) 01/10/20 10:10 Hgb 11.4 gm/dl (10.1-14.3) 01/10/20 10:10 Hct 34.7 % (30.3-42.9) D 01/10/20 10:10 MCV 91 fl (79-97) 01/10/20 10:10 MCH 30 pg (28-32) 01/10/20 10:10 MCHC 33 % (30-34) 01/10/20 10:10 RDW 14.2 % (13.2-15.2) 01/10/20 10:10 Plt Count 201 K/mm3 (140-440) 01/10/20 10:10 Lymph % (Auto) 7.2 % (13.4-35.0) L 01/10/20 10:10 [place] % (Auto) 2.1 % (0.0-7.3) 01/10/20 10:10 Eos % (Auto) 0.3 % (0.0-4.3) 01/10/20 10:10 Baso % (Auto) 0.4 % (0.0-1.8) 01/10/20 10:10 Lymph # 1.0 K/mm3 (1.2-5.4) L 01/10/20 10:10 [place] # 0.3 K/mm3 (0.0-0.8) 01/10/20 10:10 Eos # 0.0 K/mm3 (0.0-0.4) 01/10/20 10:10 Baso # 0.1 K/mm3 (0.0-0.1) 01/10/20 10:10 Add Manual Diff Complete 01/08/20 16:29 Total Counted 100 01/08/20 16:29 Seg Neutrophils % 90.0 % (40.0-70.0) H 01/10/20 10:10 Seg Neuts % (Manual) 85.0 % (40.0-70.0) H 01/08/20 16:29 Band Neutrophils % 0 % 01/08/20 16:29 Lymphocytes % (Manual) 11.0 % (13.4-35.0) L 01/08/20 16:29 Reactive Lymphs % (Man) 0 % 01/08/20 16:29 Monocytes % (Manual) 3.0 % (0.0-7.3) 01/08/20 16: Eosinophils % (Manual) 1.0 % (0.0-4.3) 01/08/20 16: Basophils % (Manual) 0 % (0.0-1.8) 01/08/20 16:29 Metamyelocytes % 0 % 01/08/20 16:29 Myelocytes % 0 % 01/08/20 16: Promyelocytes % 0 % 01/08/20 16:29 Blast Cells % 0 % 01/08/20 16: Nucleated RBC % Not Reportable 01/08/20 16:29 Seg Neutrophils # 12.0 K/mm3 (1.8-7.7) H 01/10/20 10:10 Seg Neutrophils # Man 11.5 K/mm3 (1.8-7.7) H 01/08/20 16:29 Band Neutrophils # 0.0 K/mm3 01/08/20 16: Lymphocytes # (Manual) 1.5 K/mm3 (1.2-5.4) 01/08/20 16:29 Abs React Lymphs (Man) 0.0 K/mm3 01/08/20 16: Monocytes # (Manual) 0.4 K/mm3 (0.0-0.8) 01/08/20 16: Eosinophils # (Manual) 0.1 K/mm3 (0.0-0.4) 01/08/20 16:29 Basophils # (Manual) 0.0 K/mm3 (0.0-0.1) 01/08/20 16: Metamyelocytes # 0.0 K/mm3 01/08/20 16:29 Myelocytes # 0.0 K/mm3 01/08/20 16:29 Promyelocytes # 0.0 K/mm3 01/08/20 16:29 Blast Cells # 0.0 K/mm3 01/08/20 16:29 WBC Morphology Not Reportable 01/08/20 16:29 Hypersegmented Neuts Not Reportable 01/08/20 16:29 Hyposegmented Neuts Not Reportable 01/08/20 16:29 Hypogranular Neuts Not Reportable 01/08/20 16:29 Smudge Cells Not Reportable 01/08/20 16:29 Toxic Granulation Not Reportable 01/08/20 16:29 Toxic Vacuolation Not Reportable 01/08/20 16:29 Dohle Bodies Not Reportable 01/08/20 16:29 Pelger-Huet Anomaly Not Reportable 01/08/20 16:29 Lata Rods Not Reportable 01/08/20 16:29 Platelet Estimate Not Reportable 01/08/20 16:29 Clumped Platelets Not Reportable 01/08/20 16:29 Plt Clumps, EDTA Not Reportable 01/08/20 16:29 Large Platelets Not Reportable 01/08/20 16:29 Giant Platelets Not Reportable 01/08/20 16:29 Platelet Satelliting Not Reportable 01/08/20 16:29 Plt Morphology Comment Not Reportable 01/08/20 16:29 RBC Morphology Normal 01/08/20 16:29 Dimorphic RBCs Not Reportable 01/08/20 16:29 Polychromasia Not Reportable 01/08/20 16:29 Hypochromasia Not Reportable 01/08/20 16:29 Poikilocytosis Not Reportable 01/08/20 16:29 Anisocytosis Not Reportable 01/08/20 16:29 Microcytosis Not Reportable 01/08/20 16:29 Macrocytosis Not Reportable 01/08/20 16:29 Spherocytes Not Reportable 01/08/20 16:29 Pappenheimer Bodies Not Reportable 01/08/20 16:29 Sickle Cells Not Reportable 01/08/20 16:29 Target Cells Not Reportable 01/08/20 16:29 Tear Drop Cells Not Reportable 01/08/20 16:29 Ovalocytes Not Reportable 01/08/20 16:29 Helmet Cells Not Reportable 01/08/20 16:29 Lombarid-[place] Bodies Not Reportable 01/08/20 16:29 [place] Rings Not Reportable 01/08/20 16:29 Leonidas Cells Not Reportable 01/08/20 16:29 Bite Cells Not Reportable 01/08/20 16:29 Crenated Cell Not Reportable 01/08/20 16:29 Elliptocytes Not Reportable 01/08/20 16:29 Acanthocytes (Spur) Not Reportable 01/08/20 16:29 Rouleaux Not Reportable 01/08/20 16:29 Hemoglobin C Crystals Not Reportable 01/08/20 16:29 Schistocytes Not Reportable 01/08/20 16:29 Malaria parasites Not Reportable 01/08/20 16:29 Gideon Bodies Not Reportable 01/08/20 16:29 Hem Pathologist Commnt No 01/08/20 16:29 PT 17.1 Sec. (12.2-14.9) H 01/09/20 05:52 INR 1.36 (0.87-1.13) H 01/09/20 05:52 Sodium 148 mmol/L (137-145) H 01/12/20 05:40 Potassium 3.9 mmol/L (3.6-5.0) 01/12/20 05:40 Chloride 111.6 mmol/L (98-107) H 01/12/20 05:40 Carbon Dioxide 19 mmol/L (22-30) L 01/12/20 05:40 Anion Gap 21 mmol/L 01/12/20 05:40 BUN 12 mg/dL (7-17) 01/12/20 05:40 Creatinine 0.7 mg/dL (0.6-1.2) 01/12/20 05:40 Estimated GFR > 60 ml/min 01/12/20 05:40 BUN/Creatinine Ratio 17 % 01/12/20 05:40 Glucose 128 mg/dL (65-100) H 01/12/20 05:40 POC Glucose 140 (70-105) H 01/12/20 06:17 Hemoglobin A1c 5.3 % (4-6) 01/11/20 00:45 Lactic Acid 1.20 mmol/L (0.7-2.0) 01/09/20 05:52 Calcium 8.2 mg/dL (8.4-10.2) L 01/12/20 05:40 Magnesium 2.10 mg/dL (1.7-2.3) 01/10/20 05:23 Total Bilirubin 0.40 mg/dL (0.1-1.2) 01/08/20 16:29 AST 48 units/L (5-40) H 01/08/20 16:29 ALT 33 units/L (7-56) 01/08/20 16:29 Alkaline Phosphatase 44 units/L (35-129) 01/08/20 16:29 Total Protein 6.5 g/dL (6.3-8.2) 01/08/20 16:29 Albumin 2.5 g/dL (3.9-5) L 01/08/20 16:29 Albumin/Globulin Ratio 0.6 % 01/08/20 16:29 TSH 2.440 mlU/mL (0.270-4.200) 01/10/20 10:10 Urine Color Cordelia (Yellow) 01/08/20 Unknown Urine Turbidity Cloudy (Clear) 01/08/20 Unknown Urine pH 5.0 (5.0-7.0) 01/08/20 Unknown Ur Specific [place] 1.018 (1.003-1.030) 01/08/20 Unknown Urine Protein 30 mg/dl mg/dL (Negative) 01/08/20 Unknown Urine Glucose (UA) Neg mg/dL (Negative) 01/08/20 Unknown Urine Ketones Neg mg/dL (Negative) 01/08/20 Unknown Urine Blood Mod (Negative) 01/08/20 Unknown Urine Nitrite Neg (Negative) 01/08/20 Unknown Urine Bilirubin Neg (Negative) 01/08/20 Unknown Urine Urobilinogen < 2.0 mg/dL (<2.0) 01/08/20 Unknown Ur Leukocyte Esterase Sm (Negative) 01/08/20 Unknown Urine WBC (Auto) 11.0 /HPF (0.0-6.0) H 01/08/20 Unknown Urine RBC (Auto) 7.0 /HPF (0.0-6.0) 01/08/20 Unknown U Epithel Cells (Auto) < 1.0 /HPF (0-13.0) 01/08/20 Unknown Urine Bacteria (Auto) 1+ /HPF (Negative) 01/08/20 Unknown Urine Mucus 2+ /HPF 01/08/20 Unknown Urine Yeast (Budding) 1+ /HPF 01/08/20 Unknown Microbiology: Microbiology 01/08/20 16:40 Peripheral/Venous Blood Culture - Preliminary Gram Negative Magen 01/08/20 16:29 Peripheral/Venous Blood Culture - Preliminary NO GROWTH AFTER 72 HOURS 01/08/20 Unknown Urine,Clean Catch Urine Culture - Final NO GROWTH AFTER 48 HOURS Mejía/IV: Voiding Method Diaper IV Catheter Type [Right Peripheral IV Forearm] Active Medications - Current Medications Current Medications: Generic Name Dose Route Start Last Admin Trade Name Freq PRN Reason Stop Dose Admin Acetaminophen 650 mg 01/08/20 23:14 01/11/20 22:39 Tylenol PO 650 mg Q4H PRN Administration Pain MILD(1-3)/Fever >100.5/GARCIA Lipase/Protease/Amylase 1 each 01/11/20 16:25 Donovan Sommers 10,500 Unit FEEDTUBE PRN PRN For Clogged Feeding Tube Apixaban 5 mg 01/09/20 13:00 01/11/20 21:03 Eliquis PO 5 mg Q12HR BRO Administration Protocol Atorvastatin Calcium 10 mg 01/09/20 22:00 01/11/20 21:04 Atorvastatin PO 10 mg QHS BRO Administration Dextrose 0 ml 01/08/20 23:14 01/09/20 21:45 D50w (25gm) Syringe IV 20 ml Q30MIN PRN Administration Hypoglycemia Protocol Donepezil HCl 10 mg 01/09/20 22:00 01/11/20 21:03 Aricept PO 10 mg QHS BRO Administration Sodium Chloride 1,000 mls @ 125 mls/hr 01/09/20 13:00 Nacl 0.45% 1000 Ml IV DIRECT BRO Ceftriaxone Sodium 1 gm in 50 mls @ 100 mls/hr 01/09/20 13:00 01/11/20 12:59 Rocephin/Ns 1 Gm/50 Ml IV 100 mls/hr Q24H BRO Administration Protocol Dextrose 1,000 mls @ 75 mls/hr 01/09/20 23:00 01/10/20 23:30 D5w IV 75 mls/hr DIRECT BRO Administration Magnesium Hydroxide 30 ml 01/08/20 23:14 Milk Of Magnesia PO Q4H PRN Constipation Megestrol Acetate 400 mg 01/12/20 11:00 Megestrol PO QDAY BRO Mirtazapine 15 mg 01/09/20 22:00 01/11/20 21:04 Remeron PO 15 mg QHS BRO Administration Ondansetron HCl 4 mg 01/08/20 23:14 Zofran IV Q8H PRN Nausea And Vomiting Simple Syrup 15 ml 01/11/20 16:25 Simple Syrup FEEDTUBE PRN PRN Hypoglycemia Simple Syrup 30 ml 01/11/20 16:25 Simple Syrup FEEDTUBE PRN PRN Hypoglycemia Sodium Bicarbonate 325 mg 01/11/20 16:25 Sodium Bicarbonate FEEDTUBE PRN PRN For Clogged Feeding Tube Sodium Chloride 10 ml 01/09/20 10:00 01/11/20 21:04 Sodium Chloride Flush Syringe 10 Ml IV 10 ml BID BRO Administration Sodium Chloride 10 ml 01/08/20 23:14 Sodium Chloride Flush Syringe 10 Ml IV PRN PRN LINE FLUSH Trazodone HCl 25 mg 01/09/20 22:00 01/11/20 21:02 Desyrel PO 25 mg QHS BRO Administration Nutrition/Malnutrition Assess - Dietary Evaluation Nutrition/Malnutrition Findings: Nutrition Notes Start: 01/09/20 12:13 Freq: Status: Active Protocol: Document 01/12/20 10:20 LP (Rec: 01/12/20 10:25 LP [id number]) Nutrition Notes Initial or Follow up Reassessment Current Diagnosis Decubitus(Pressure Ulcer), Diabetes,Sepsis Other Pertinent Diagnosis UTI, dementia, PE, Sacral wound Current Diet NPO Labs/Tests Na 148 BG 128 Pertinent Medications Reviewed Height 5 ft 2 in Weight 42.5 kg [place] Body Weight (kg) 50.00 BMI 17.1 Weight Status Underweight Subjective/Other Information Consult for TF. Dobhoff placed . Burn Absent Trauma Absent Difficulty In Chewing Current % PO Negligible Minimum of two criteria No Reduced Concrete Float Maker Strength Measurably Reduced (severe) #2 Nutrition Diagnosis Inadequate oral intake Etiology AMS As Evidenced by Signs and Symptoms Pt not eating or drinking well #1 Nutrition Diagnosis Increased nutrient needs ( specify in comment below) Diagnosis Progress(for reassessment Continues documentation) Is patient on ventilator? No Is Patient Ambulatory and/or Out of Bed No REE-([facility]-confined to bed) 1084.116 Kcal/Kg value to use for calculation 35 Approximate Energy Requirements Using 1488 kcal/Kg Calculation Used for Recommendations Kcal/kg Additional Notes Protein needs are: 52-64 g (1. 2-1.5 g/kg) Fluid needs are: 1 ml/kcal Nutrition Intervention Change Diet Order: TF Nutrition Support: Jevity 1.2 at 50ml/hr Flush 150ml q4h for hypernatremia 100ml q4h once resolved Kcal 1,440 Protein (gm) 67 Fluid (mL) 968 Add Supplement/Snack (indicate name/kcal D/C /protein ) Goal #1 Meet at least 80% of kcal and protein needs via TF Anticipated Discharge Needs: Unable to determine at this time Follow-Up By: 01/14/20 Additional Comments Follow for TF start/tolerance, Na levels
[2020-01-12] MEDS: APIXABAN 5 MG TAB PO SCH ×2 (12:40→21:32)
[2020-01-12] MEDS: MEGESTROL 400 MG/10 ML ORAL LIQD PO SCH (12:42)
--- NOTE | 2020-01-12 15:35 | Progress Note ---
Assessment and Plan Impression * Hypernatremia * Dehydration * Dementia * Hypokalemia * Diabetes Recommendations * Patient clinically appears to be dehydrated. * Hypernatremia is most likely secondary to free water deficit * Chest x-ray from 01/10/2020 essentially negative * Patient currently has an NG tube in place. Add free water through the NG tube and reduce her IV fluid * Monitor fluid status and electrolytes closely * Avoid nephrotoxins * Magnesium and potassium level is now normal Subjective Date of service: 01/12/20 Interval history: Patient appears comfortable today. NG tube in place. Receiving feeding at 30 cc an hour. Objective - Vital Signs Vital signs: Vital Signs - 12hr 01/12/20 01/12/20 01/12/20 05:23 11:24 11:30 Temperature 97.6 F 97.3 F L 97.3 F L Pulse Rate 117 H 116 H 119 H Respiratory 18 18 18 Rate Blood Pressure 96/58 77/36 97/58 O2 Sat by Pulse 96 99 98 Oximetry - General Appearance General appearance: chronically ill, frail EENT: PERRL, mucous membranes moist Neck: no JVD, no thyromegaly, no carotid bruit, supple Respiratory: Present: Clear to Ascultation Cardiology: regular, normal heart rate, S1S2, no murmurs Gastrointestinal: normal, normoactive bowel sounds Integumentary: no rash, other (No edema) - Lab 01/10/20 10:10 01/12/20 05:40 Most recent lab results Calcium 8.2 mg/dL (8.4-10.2) L 01/12/20 05:40 Magnesium 2.10 mg/dL (1.7-2.3) 01/10/20 05:23 Medications & Allergies - Medications Allergies/Adverse Reactions: Allergies No Known Allergies Allergy (Unverified 06/23/14 09:54) Home Medications: Home Medications Medication Instructions Recorded Confirmed Last Taken Type AtorvaSTATin 10 mg PO QHS 05/06/19 05/06/19 05/05/19 History Donepezil HCl [Donepezil HCl Odt] 10 mg PO QHS 05/06/19 05/06/19 Unknown History LORazepam [Lorazepam] 0.5 mg PO BID 05/06/19 05/06/19 Unknown History Melatonin [Melatonin 10MG CAP] 10 mg PO QHS 05/06/19 05/06/19 05/05/19 History Metformin HCl [Metformin HCl ER] 500 mg PO Q2D 05/06/19 05/06/19 05/05/19 History Apixaban [Eliquis] 5 mg PO BID 30 Days #60 tablet 05/08/19 Unknown Rx Apixaban [Eliquis] 10 mg PO BID 7 Days #14 tablet 05/08/19 Unknown Rx Active Medications: Generic Name Dose Route Start Last Admin Trade Name Freq PRN Reason Stop Dose Admin Acetaminophen 650 mg 01/08/20 23:14 01/11/20 22:39 Tylenol PO 650 mg Q4H PRN Administration Pain MILD(1-3)/Fever >100.5/GARCIA Lipase/Protease/Amylase 1 each 01/11/20 16:[address] 10,500 Unit FEEDTUBE PRN PRN For Clogged Feeding Tube Apixaban 5 mg 01/09/20 13:00 01/11/20 21:03 Eliquis PO 5 mg Q12HR BRO Administration Protocol Atorvastatin Calcium 10 mg 01/09/20 22:00 01/11/20 21:04 Atorvastatin PO 10 mg QHS BRO Administration Dextrose 0 ml 01/08/20 23:14 01/09/20 21:45 D50w (25gm) Syringe IV 20 ml Q30MIN PRN Administration Hypoglycemia Protocol Donepezil HCl 10 mg 01/09/20 22:00 01/11/20 21:03 Aricept PO 10 mg QHS BRO Administration Sodium Chloride 1,000 mls @ 125 mls/hr 01/09/20 13:00 Nacl 0.45% 1000 Ml IV DIRECT BRO Ceftriaxone Sodium 1 gm in 50 mls @ 100 mls/hr 01/09/20 13:00 01/11/20 12:59 Rocephin/Ns 1 Gm/50 Ml IV 100 mls/hr Q24H BRO Administration Protocol Dextrose 1,000 mls @ 75 mls/hr 01/09/20 23:00 01/10/20 23:30 D5w IV 75 mls/hr DIRECT BRO Administration Magnesium Hydroxide 30 ml 01/08/20 23:14 Milk Of Magnesia PO Q4H PRN Constipation Megestrol Acetate 400 mg 01/12/20 11:00 Megestrol PO QDAY BRO Mirtazapine 15 mg 01/09/20 22:00 01/11/20 21:04 Remeron PO 15 mg QHS BRO Administration Ondansetron HCl 4 mg 01/08/20 23:14 Zofran IV Q8H PRN Nausea And Vomiting Simple Syrup 15 ml 01/11/20 16:25 Simple Syrup FEEDTUBE PRN PRN Hypoglycemia Simple Syrup 30 ml 01/11/20 16:25 Simple Syrup FEEDTUBE PRN PRN Hypoglycemia Sodium Bicarbonate 325 mg 01/11/20 16:25 Sodium Bicarbonate FEEDTUBE PRN PRN For Clogged Feeding Tube Sodium Chloride 10 ml 01/09/20 10:00 01/11/20 21:04 Sodium Chloride Flush Syringe 10 Ml IV 10 ml BID BRO Administration Sodium Chloride 10 ml 01/08/20 23:14 Sodium Chloride Flush Syringe 10 Ml IV PRN PRN LINE FLUSH Trazodone HCl 25 mg 01/09/20 22:00 01/11/20 21:02 Desyrel PO 25 mg QHS BRO Administration
[2020-01-12] MEDS: cefTRIAXone/NS 1 GM/50 ML 1 GM/50 ML BAG IV SCH (15:42)
[2020-01-12] MEDS: traZODone 50 MG TAB PO SCH (21:31)
[2020-01-12] MEDS: MIRTAZAPINE 15 MG TAB PO SCH (21:32)
[2020-01-12] MEDS: DONEPEZIL 10 MG TAB PO SCH (21:33)
[2020-01-13 07:34] LABS: Blood Urea Nitrogen 13 mg/dL (7-17); Calcium 7.8 mg/dL (8.4-10.2); Hemolysis Index 2
[2020-01-13 07:35] LABS: BUN/Creatinine Ratio 22
[2020-01-13] MEDS: MEGESTROL 400 MG/10 ML ORAL LIQD PO SCH (10:07)
[2020-01-13] MEDS: APIXABAN 5 MG TAB PO SCH (10:07)
--- NOTE | 2020-01-13 11:06 | Event Note ---
Date: 01/13/20 pt seen and examined, full consult dictated - plan EGD/peg in am if stable - will follow
--- NOTE | 2020-01-13 11:12 | Progress Note ---
Assessment and Plan Assessment and plan: Patient is a 69-year-old -[place] female with known history of dementia, diabetes mellitus and pulmonary embolism was brought into the emergency room for decreased responsiveness, lethargy and hypotension. According to home health nurse patient has become less active and blood pressure was said to be low. She was brought to the emergency room for evaluation. Further history cannot be obtained from patient. Upon arrival in the emergency room patient had a low-grade fever. Work-up in the emergency room reveals elevated white blood cell count of 13.5, elevated BUN and creatinine 30 and 1.1 respectively. Found to be dehydrated and hypernatremic. Urinalysis shows UTI. Patient subsequently started on IV fluid and empiric IV antibiotics admitted for further evaluation. 01/08. Patient seen and examined at bedside this month. Patient not talking much this morning. Discussed case with patient spouse [patient usually does not talk much due to possible underlying dementia]. Started patient on her home medications today. Sodium slightly elevated from yesterday-162. Switch to hyp otonic solution after resuscitation. Monitor BMP 01/09. More awake today. Sodium is improving. Has tachycardia today. Received a dose of metoprolol and is on telemetry. No arrhythmias noted. Has no congestion on chest xray. Will continue IV hydration for now. She needs assistance with meals due to advanced dementia. 01/10. Sodium is improving, will speak to family about diet and possible NGT and medication, Her dementia may be the prohibiting factor. Anticipate discharge in 24 to 48 hrs. ?IF SHE IS BEDBOUND. Continue Antibiotics. 01/11. Patient seen and examined at bedside this morning. She is not eating. Discussed with patients - plan for PEG placement. GI consulted. Blood culture from 01/07 grew GN rods. Repeat Blood culture sent. She is on ceftriaxone. Her sodium level is improving gradually. 01/12. Plan for tube placement. GI on board. - Patient Problems (1) Hypernatremia Current Visit: Yes Status: Acute Plan to address problem: Monitor sodium levels (2) Sepsis Current Visit: Yes Status: Acute Qualifiers: Sepsis type: sepsis due to unspecified organism Sepsis acute organ dysfunction status: unspecified Qualified Code(s): A41.9 - Sepsis, unspecified organism Plan to address problem: From urinary tract infection Blood culture - GN rods. Repeat BC NTD Continue IV antibiotics. Monitor vital signs closely (3) UTI (urinary tract infection) Current Visit: Yes Status: Acute Qualifiers: Urinary tract infection type: acute cystitis Hematuria presence: without hematuria Qualified Code(s): N30.00 - Acute cystitis without hematuria Plan to address problem: Continue antibiotics Urine cultures negative so far (4) Bilateral pulmonary embolism Current Visit: No Status: Chronic Plan to address problem: Had pulmonary embolism 7 months ago. As per pulmonology, patient needs indefinite anticoagulation Continue Eliquis 5 mg twice daily (5) Uncontrolled diabetes mellitus Current Visit: No Status: Acute Plan to address problem: DM management (6) Dementia Current Visit: No Status: Chronic Plan to address problem: Continue donepezil (7) Moderate protein-calorie malnutrition Current Visit: Yes Status: Acute Plan to address problem: She is not eating well and is getting feeds through the NG tube. Discussed with - this problem has been chronic and he is open to getting a PEG placement to supplement her intake Plan for PEG placement today (8) DVT prophylaxis Current Visit: No Status: Acute Plan to address problem: Patient is on full anticoagulation for bilateral PE History Interval history: Patient seen and examined at bedside this morning. She is not eating. Discussed with patients - plan for PEG placement. GI consulted. Blood culture from 01/07 grew GN rods. Repeat Blood culture pending. She is on ceftriaxone. Hospitalist Physical - Constitutional Vitals: Temp Pulse Resp BP Pulse Ox 97.2 F L 123 H 19 98/52 100 01/13/20 11:05 01/13/20 11:05 01/13/20 11:05 01/13/20 11:05 01/13/20 04:37 General appearance: Present: no acute distress - EENT Eyes: Present: PERRL - Neck Neck: Present: supple, normal ROM - Respiratory Respiratory: bilateral: CTA - Cardiovascular Heart Sounds: Present: S1 & S2 - Extremities Extremities: No edema - Abdominal General gastrointestinal: soft, non-tender, non-distended, normal bowel sounds - Neurologic Neurologic: CNII-XII intact Results - Labs CBC & Chem 7: 01/10/20 10:10 01/13/20 07:00 Labs: Laboratory Last Values WBC 13.4 K/mm3 (4.5-11.0) H 01/10/20 10:10 RBC 3.83 M/mm3 (3.65-5.03) 01/10/20 10:10 Hgb 11.4 gm/dl (10.1-14.3) 01/10/20 10:10 Hct 34.7 % (30.3-42.9) D 01/10/20 10:10 MCV 91 fl (79-97) 01/10/20 10:10 MCH 30 pg (28-32) 01/10/20 10:10 MCHC 33 % (30-34) 01/10/20 10:10 RDW 14.2 % (13.2-15.2) 01/10/20 10:10 Plt Count 201 K/mm3 (140-440) 01/10/20 10:10 Lymph % (Auto) 7.2 % (13.4-35.0) L 01/10/20 10:10 Mason % (Auto) 2.1 % (0.0-7.3) 01/10/20 10:10 Eos % (Auto) 0.3 % (0.0-4.3) 01/10/20 10:10 Baso % (Auto) 0.4 % (0.0-1.8) 01/10/20 10:10 Lymph # 1.0 K/mm3 (1.2-5.4) L 01/10/20 10:10 Mason # 0.3 K/mm3 (0.0-0.8) 01/10/20 10:10 Eos # 0.0 K/mm3 (0.0-0.4) 01/10/20 10:10 Baso # 0.1 K/mm3 (0.0-0.1) 01/10/20 10:10 Add Manual Diff Complete 01/08/20 16:29 Total Counted 100 01/08/20 16:29 Seg Neutrophils % 90.0 % (40.0-70.0) H 01/10/20 10:10 Seg Neuts % (Manual) 85.0 % (40.0-70.0) H 01/08/20 16:29 Band Neutrophils % 0 % 01/08/20 16:29 Lymphocytes % (Manual) 11.0 % (13.4-35.0) L 01/08/20 16:29 Reactive Lymphs % (Man) 0 % 01/08/20 16:29 Monocytes % (Manual) 3.0 % (0.0-7.3) 01/08/20 16:29 Eosinophils % (Manual) 1.0 % (0.0-4.3) 01/08/20 16: Basophils % (Manual) 0 % (0.0-1.8) 01/08/20 16:29 Metamyelocytes % 0 % 01/08/20 16:29 Myelocytes % 0 % 01/08/20 16: Promyelocytes % 0 % 01/08/20 16: Blast Cells % 0 % 01/08/20 16:29 Nucleated RBC % Not Reportable 01/08/20 16:29 Seg Neutrophils # 12.0 K/mm3 (1.8-7.7) H 01/10/20 10:10 Seg Neutrophils # Man 11.5 K/mm3 (1.8-7.7) H 01/08/20 16:29 Band Neutrophils # 0.0 K/mm3 01/08/20 16: Lymphocytes # (Manual) 1.5 K/mm3 (1.2-5.4) 01/08/20 16:29 Abs React Lymphs (Man) 0.0 K/mm3 01/08/20 16: Monocytes # (Manual) 0.4 K/mm3 (0.0-0.8) 01/08/20 16: Eosinophils # (Manual) 0.1 K/mm3 (0.0-0.4) 01/08/20 16: Basophils # (Manual) 0.0 K/mm3 (0.0-0.1) 01/08/20 16: Metamyelocytes # 0.0 K/mm3 01/08/20 16: Myelocytes # 0.0 K/mm3 01/08/20 16:29 Promyelocytes # 0.0 K/mm3 01/08/20 16:29 Blast Cells # 0.0 K/mm3 01/08/20 16:29 WBC Morphology Not Reportable 01/08/20 16:29 Hypersegmented Neuts Not Reportable 01/08/20 16:29 Hyposegmented Neuts Not Reportable 01/08/20 16:29 Hypogranular Neuts Not Reportable 01/08/20 16:29 Smudge Cells Not Reportable 01/08/20 16:29 Toxic Granulation Not Reportable 01/08/20 16:29 Toxic Vacuolation Not Reportable 01/08/20 16:29 Dohle Bodies Not Reportable 01/08/20 16:29 Pelger-Huet Anomaly Not Reportable 01/08/20 16:29 Lata Rods Not Reportable 01/08/20 16:29 Platelet Estimate Not Reportable 01/08/20 16:29 Clumped Platelets Not Reportable 01/08/20 16:29 Plt Clumps, EDTA Not Reportable 01/08/20 16:29 Large Platelets Not Reportable 01/08/20 16:29 Giant Platelets Not Reportable 01/08/20 16:29 Platelet Satelliting Not Reportable 01/08/20 16:29 Plt Morphology Comment Not Reportable 01/08/20 16:29 RBC Morphology Normal 01/08/20 16:29 Dimorphic RBCs Not Reportable 01/08/20 16:29 Polychromasia Not Reportable 01/08/20 16:29 Hypochromasia Not Reportable 01/08/20 16:29 Poikilocytosis Not Reportable 01/08/20 16:29 Anisocytosis Not Reportable 01/08/20 16:29 Microcytosis Not Reportable 01/08/20 16:29 Macrocytosis Not Reportable 01/08/20 16:29 Spherocytes Not Reportable 01/08/20 16:29 Pappenheimer Bodies Not Reportable 01/08/20 16:29 Sickle Cells Not Reportable 01/08/20 16:29 Target Cells Not Reportable 01/08/20 16:29 Tear Drop Cells Not Reportable 01/08/20 16:29 Ovalocytes Not Reportable 01/08/20 16:29 Helmet Cells Not Reportable 01/08/20 16:29 [place] Bodies Not Reportable 01/08/20 16:29 [place] Rings Not Reportable 01/08/20 16:29 [place] Cells Not Reportable 01/08/20 16:29 Bite Cells Not Reportable 01/08/20 16:29 Crenated Cell Not Reportable 01/08/20 16:29 Elliptocytes Not Reportable 01/08/20 16:29 Acanthocytes (Spur) Not Reportable 01/08/20 16:29 Rouleaux Not Reportable 01/08/20 16:29 Hemoglobin C Crystals Not Reportable 01/08/20 16:29 Schistocytes Not Reportable 01/08/20 16:29 Malaria parasites Not Reportable 01/08/20 16:29 Gideon Bodies Not Reportable 01/08/20 16:29 Hem Pathologist Commnt No 01/08/20 16:29 PT 17.1 Sec. (12.2-14.9) H 01/09/20 05:52 INR 1.36 (0.87-1.13) H 01/09/20 05:52 Sodium 145 mmol/L (137-145) 01/13/20 07:00 Potassium 3.6 mmol/L (3.6-5.0) 01/13/20 07:00 Chloride 110.0 mmol/L (98-107) H 01/13/20 07:00 Carbon Dioxide 24 mmol/L (22-30) 01/13/20 07:00 Anion Gap 15 mmol/L 01/13/20 07:00 BUN 13 mg/dL (7-17) 01/13/20 07:00 Creatinine 0.6 mg/dL (0.6-1.2) 01/13/20 07:00 Estimated GFR > 60 ml/min 01/13/20 07:00 BUN/Creatinine Ratio 22 % 01/13/20 07:00 Glucose 139 mg/dL (65-100) H 01/13/20 07:00 POC Glucose 162 (70-105) H 01/13/20 05:26 Hemoglobin A1c 5.3 % (4-6) 01/11/20 00:45 Lactic Acid 1.20 mmol/L (0.7-2.0) 01/09/20 05:52 Calcium 7.8 mg/dL (8.4-10.2) L 01/13/20 07:00 Magnesium 2.10 mg/dL (1.7-2.3) 01/10/20 05:23 Total Bilirubin 0.40 mg/dL (0.1-1.2) 01/08/20 16:29 AST 48 units/L (5-40) H 01/08/20 16:29 ALT 33 units/L (7-56) 01/08/20 16:29 Alkaline Phosphatase 44 units/L (35-129) 01/08/20 16:29 Total Protein 6.5 g/dL (6.3-8.2) 01/08/20 16:29 Albumin 2.5 g/dL (3.9-5) L 01/08/20 16:29 Albumin/Globulin Ratio 0.6 % 01/08/20 16:29 TSH 2.440 mlU/mL (0.270-4.200) 01/10/20 10:10 Urine Color Cordelia (Yellow) 01/08/20 Unknown Urine Turbidity Cloudy (Clear) 01/08/20 Unknown Urine pH 5.0 (5.0-7.0) 01/08/20 Unknown Ur Specific [place] 1.018 (1.003-1.030) 01/08/20 Unknown Urine Protein 30 mg/dl mg/dL (Negative) 01/08/20 Unknown Urine Glucose (UA) Neg mg/dL (Negative) 01/08/20 Unknown Urine Ketones Neg mg/dL (Negative) 01/08/20 Unknown Urine Blood Mod (Negative) 01/08/20 Unknown Urine Nitrite Neg (Negative) 01/08/20 Unknown Urine Bilirubin Neg (Negative) 01/08/20 Unknown Urine Urobilinogen < 2.0 mg/dL (<2.0) 01/08/20 Unknown Ur Leukocyte Esterase Sm (Negative) 01/08/20 Unknown Urine WBC (Auto) 11.0 /HPF (0.0-6.0) H 01/08/20 Unknown Urine RBC (Auto) 7.0 /HPF (0.0-6.0) 01/08/20 Unknown U Epithel Cells (Auto) < 1.0 /HPF (0-13.0) 01/08/20 Unknown Urine Bacteria (Auto) 1+ /HPF (Negative) 01/08/20 Unknown Urine Mucus 2+ /HPF 01/08/20 Unknown Urine Yeast (Budding) 1+ /HPF 01/08/20 Unknown Microbiology: Microbiology 01/08/20 16:40 Peripheral/Venous Blood Culture - Final Proteus Mirabilis 01/08/20 16:29 Peripheral/Venous Blood Culture - Preliminary NO GROWTH AFTER 4 DAYS 01/12/20 13:22 Peripheral/Venous Blood Culture - Preliminary Culture in Progress 01/12/20 13:22 Peripheral/Venous Blood Culture - Preliminary Culture in Progress Mejía/IV: Voiding Method Toilet IV Catheter Type [Right Peripheral IV Forearm] Active Medications - Current Medications Current Medications: Generic Name Dose Route Start Last Admin Trade Name Freq PRN Reason Stop Dose Admin Acetaminophen 650 mg 01/08/20 23:14 01/11/20 22:39 Tylenol PO 650 mg Q4H PRN Administration Pain MILD(1-3)/Fever >100.5/GARCIA Lipase/Protease/Amylase 1 each 01/11/20 16:25 Pancrejason Sommers 10,500 Unit FEEDTUBE PRN PRN For Clogged Feeding Tube Apixaban 5 mg 01/09/20 13:00 01/13/20 10:07 Eliquis PO 5 mg Q12HR BRO Administration Protocol Atorvastatin Calcium 10 mg 01/09/20 22:00 01/12/20 21:32 Atorvastatin PO 10 mg QHS BRO Administration Dextrose 0 ml 01/08/20 23:14 01/09/20 21:45 D50w (25gm) Syringe IV 20 ml Q30MIN PRN Administration Hypoglycemia Protocol Donepezil HCl 10 mg 01/09/20 22:00 01/12/20 21:33 Aricept PO 10 mg QHS BRO Administration Ceftriaxone Sodium 1 gm in 50 mls @ 100 mls/hr 01/09/20 13:00 01/12/20 15:42 Rocephin/Ns 1 Gm/50 Ml IV 100 mls/hr Q24H BRO Administration Protocol Dextrose 1,000 mls @ 42 mls/hr 01/09/20 23:00 01/10/20 23:30 D5w IV 75 mls/hr DIRECT BRO Administration Magnesium Hydroxide 30 ml 01/08/20 23:14 Milk Of Magnesia PO Q4H PRN Constipation Megestrol Acetate 400 mg 01/12/20 11:00 01/13/20 10:07 Megestrol PO 400 mg QDAY BRO Administration Mirtazapine 15 mg 01/09/20 22:00 01/12/20 21:32 Remeron PO 15 mg QHS BRO Administration Ondansetron HCl 4 mg 01/08/20 23:14 Zofran IV Q8H PRN Nausea And Vomiting Simple Syrup 15 ml 01/11/20 16:25 Simple Syrup FEEDTUBE PRN PRN Hypoglycemia Simple Syrup 30 ml 01/11/20 16:25 Simple Syrup FEEDTUBE PRN PRN Hypoglycemia Sodium Bicarbonate 325 mg 01/11/20 16:25 Sodium Bicarbonate FEEDTUBE PRN PRN For Clogged Feeding Tube Sodium Chloride 10 ml 01/09/20 10:00 01/13/20 10:08 Sodium Chloride Flush Syringe 10 Ml IV 10 ml BID BRO Administration Sodium Chloride 10 ml 01/08/20 23:14 Sodium Chloride Flush Syringe 10 Ml IV PRN PRN LINE FLUSH Trazodone HCl 25 mg 01/09/20 22:00 01/12/20 21:31 Desyrel PO 25 mg QHS BRO Administration Nutrition/Malnutrition Assess - Dietary Evaluation Nutrition/Malnutrition Findings: Nutrition Notes Start: 01/09/20 12:13 Freq: Status: Active Protocol: Document 01/12/20 10:20 LP (Rec: 01/12/20 10:25 LP [id number]) Nutrition Notes Initial or Follow up Reassessment Current Diagnosis Decubitus(Pressure Ulcer), Diabetes,Sepsis Other Pertinent Diagnosis UTI, dementia, PE, Sacral wound Current Diet NPO Labs/Tests Na 148 BG 128 Pertinent Medications Reviewed Height 5 ft 2 in Weight 42.5 kg [place] Body Weight (kg) 50.00 BMI 17.1 Weight Status Underweight Subjective/Other Information Consult for TF. Dobhoff placed . Burn Absent Trauma Absent Difficulty In Chewing Current % PO Negligible Minimum of two criteria No Reduced Desulfurizer Hand Strength Measurably Reduced (severe) #2 Nutrition Diagnosis Inadequate oral intake Etiology AMS As Evidenced by Signs and Symptoms Pt not eating or drinking well #1 Nutrition Diagnosis Increased nutrient needs ( specify in comment below) Diagnosis Progress(for reassessment Continues documentation) Is patient on ventilator? No Is Patient Ambulatory and/or Out of Bed No [facility] 1084.116 Kcal/Kg value to use for calculation 35 Approximate Energy Requirements Using 1488 kcal/Kg Calculation Used for Recommendations Kcal/kg Additional Notes Protein needs are: 52-64 g (1. 2-1.5 g/kg) Fluid needs are: 1 ml/kcal Nutrition Intervention Change Diet Order: TF Nutrition Support: Jevity 1.2 at 50ml/hr Flush 150ml q4h for hypernatremia 100ml q4h once resolved Kcal 1,440 Protein (gm) 67 Fluid (mL) 968 Add Supplement/Snack (indicate name/kcal D/C /protein ) Goal #1 Meet at least 80% of kcal and protein needs via TF Anticipated Discharge Needs: Unable to determine at this time Follow-Up By: 09/09/20 Additional Comments Follow for TF start/tolerance, Na levels
--- NOTE | 2020-01-13 11:26 | Progress Note ---
Assessment and Plan Impression * Hypernatremia * Dehydration * Dementia * Hypokalemia * Diabetes * Recommendations * Patient clinically appears to be dehydrated. * Hypernatremia is most likely secondary to free water deficit, improving from 162->148->145, off IVF this AM * Prior urine, imaging studies reviewed * Patient currently has an NG tube in place. Continue free water through the NG tube, can hold off IVF for now * Reviewed primary and product/industry consultant notes, aware of plan for PEG tube * Monitor fluid status and electrolytes closely * Avoid nephrotoxins * Magnesium and potassium level is now normal Subjective Date of service: 01/13/20 Interval history: Appears comfortable, no acute changes noted. NG tube in place. Non-verbal Objective - Exam Narrative Exam: General appearance: chronically ill, frail, non-verbal EENT: PERRL, mucous membranes moist Neck: no carotid bruit, supple Respiratory: Present: Clear to Ascultation Cardiology: regular, normal heart rate, S1S2, no murmurs Gastrointestinal: normal, normoactive bowel sounds Integumentary: no rash, other (No edema) Neuro: alert and tracks with eyes, but does not speak - Vital Signs Vital signs: Vital Signs - 12hr 01/13/20 01/13/20 01/13/20 04:37 10:18 11:05 Temperature 98.3 F 97.2 F L Pulse Rate 124 H 123 H Pulse Rate [ 123 H Apical] Respiratory 18 14 19 Rate Blood Pressure 115/52 Blood Pressure 98/52 [Left] O2 Sat by Pulse 100 Oximetry - Lab 01/10/20 10:10 01/13/20 07:00 Most recent lab results Calcium 7.8 mg/dL (8.4-10.2) L 01/13/20 07:00 Magnesium 2.10 mg/dL (1.7-2.3) 01/10/20 05:23 Medications & Allergies - Medications Allergies/Adverse Reactions: Allergies No Known Allergies Allergy (Unverified 06/23/14 09:54) Home Medications: Home Medications Medication Instructions Recorded Confirmed Last Taken Type AtorvaSTATin 10 mg PO QHS 05/06/19 05/06/19 05/05/19 History Donepezil HCl [Donepezil HCl Odt] 10 mg PO QHS 05/06/19 05/06/19 Unknown History LORazepam [Lorazepam] 0.5 mg PO BID 05/06/19 05/06/19 Unknown History Melatonin [Melatonin 10MG CAP] 10 mg PO QHS 05/06/19 05/06/19 05/05/19 History Metformin HCl [Metformin HCl ER] 500 mg PO Q2D 05/06/19 05/06/19 05/05/19 History Apixaban [Eliquis] 5 mg PO BID 30 Days #60 tablet 05/08/19 Unknown Rx Apixaban [Eliquis] 10 mg PO BID 7 Days #14 tablet 05/08/19 Unknown Rx Active Medications: Generic Name Dose Route Start Last Admin Trade Name Freq PRN Reason Stop Dose Admin Acetaminophen 650 mg 01/08/20 23:14 01/11/20 22:39 Tylenol PO 650 mg Q4H PRN Administration Pain MILD(1-3)/Fever >100.5/GARCIA Lipase/Protease/Amylase 1 each 01/11/20 16:[address] 10,500 Unit FEEDTUBE PRN PRN For Clogged Feeding Tube Atorvastatin Calcium 10 mg 01/09/20 22:00 01/12/20 21:32 Atorvastatin PO 10 mg QHS BRO Administration Dextrose 0 ml 01/08/20 23:14 01/09/20 21:45 D50w (25gm) Syringe IV 20 ml Q30MIN PRN Administration Hypoglycemia Protocol Donepezil HCl 10 mg 01/09/20 22:00 01/12/20 21:33 Aricept PO 10 mg QHS BRO Administration Ceftriaxone Sodium 1 gm in 50 mls @ 100 mls/hr 01/09/20 13:00 01/12/20 15:42 Rocephin/Ns 1 Gm/50 Ml IV 100 mls/hr Q24H BRO Administration Protocol Dextrose 1,000 mls @ 42 mls/hr 01/09/20 23:00 01/10/20 23:30 D5w IV 75 mls/hr DIRECT BRO Administration Magnesium Hydroxide 30 ml 01/08/20 23:14 Milk Of Magnesia PO Q4H PRN Constipation Megestrol Acetate 400 mg 01/12/20 11:00 01/13/20 10:07 Megestrol PO 400 mg QDAY BRO Administration Metoprolol Tartrate 25 mg 01/13/20 12:00 Metoprolol PO BID BRO Mirtazapine 15 mg 01/09/20 22:00 01/12/20 21:32 Remeron PO 15 mg QHS BRO Administration Ondansetron HCl 4 mg 01/08/20 23:14 Zofran IV Q8H PRN Nausea And Vomiting Simple Syrup 15 ml 01/11/20 16:25 Simple Syrup FEEDTUBE PRN PRN Hypoglycemia Simple Syrup 30 ml 01/11/20 16:25 Simple Syrup FEEDTUBE PRN PRN Hypoglycemia Sodium Bicarbonate 325 mg 01/11/20 16:25 Sodium Bicarbonate FEEDTUBE PRN PRN For Clogged Feeding Tube Sodium Chloride 10 ml 01/09/20 10:00 01/13/20 10:08 Sodium Chloride Flush Syringe 10 Ml IV 10 ml BID BRO Administration Sodium Chloride 10 ml 01/08/20 23:14 Sodium Chloride Flush Syringe 10 Ml IV PRN PRN LINE FLUSH Trazodone HCl 25 mg 01/09/20 22:00 01/12/20 21:31 Desyrel PO 25 mg QHS BRO Administration
--- NOTE | 2020-01-13 12:02 | Consultation ---
REFERRING PHYSICIAN: Emmy Enriquez MD INDICATION: 1. Weight loss. 2. Nutritional support. HISTORY OF PRESENT ILLNESS: The patient is a 69-year-old black female with history of dementia, diabetes as well as pulmonary embolism, been seen by GI for possible PEG tube placement. The patient was admitted on 01/08/2020 when she presented with decreased responsiveness, lethargy and ____. Since that time, the patient has been found to be in sepsis with bacteremia, now being managed. The patient has had poor p.o. intake and GI is consulted to aid in management. No specific complaints including nausea, vomiting, diarrhea, constipation or rectal bleeding. No other specific complaints. PAST MEDICAL HISTORY: 1. Diabetes. 2. High cholesterol. 3. Pulmonary embolism. 4. Dementia. 5. Asthma. MEDICATIONS: Reviewed and updated in chart. ALLERGIES: No known drug allergies. SOCIAL HISTORY: Denies alcohol or tobacco. FAMILY HISTORY: Negative for colon cancer. REVIEW OF SYSTEMS: GENERAL: Reports some weakness. HEENT: No visual complaints or tinnitus. PULMONARY: No shortness of breath. No cough. No chest pain. GASTROINTESTINAL: No specific complaints. All points of 13-point review of systems otherwise negative. PHYSICAL EXAMINATION: VITAL SIGNS: Temperature of 98.3, pulse 100, respirations 18, blood pressure 115/52. GENERAL: Fairly thin female, in no obvious distress. HEENT: Pupils equal, round and reactive. PULMONARY: Rhonchi. CARDIOVASCULAR: Regular rhythm. ABDOMEN: Soft. SKIN: No obvious rashes. LABORATORY DATA: Pertinent for white count of 13.4, hemoglobin and hematocrit of 11.4 and 34.7, platelet count of 201. Chem-7, sodium of 140, potassium 3.9, chloride 111, CO2 19, BUN and creatinine of 12 and 0.7. ASSESSMENT AND PLAN: A 69-year-old female with past medical history as noted above, now admitted for urosepsis with bacteremia, now improving. Patient was seen by speech therapy and felt not able to eat and so a PEG tube is recommended. Reportedly, discussed with family who agrees. PLAN: 1. Review chart and discussed with family. 2. NPO after midnight. 3. Plan for PEG tube placement in a.m. JOB# [id number] CAB/NTS
[2020-01-13] MEDS: METOPROLOL TARTRATE 25 MG TAB PO SCH ×2 (12:51→21:05)
[2020-01-13] MEDS: cefTRIAXone/NS 1 GM/50 ML 1 GM/50 ML BAG IV SCH (12:51)
[2020-01-13] MEDS: DONEPEZIL 10 MG TAB PO SCH (21:04)
[2020-01-13] MEDS: MIRTAZAPINE 15 MG TAB PO SCH (21:04)
[2020-01-13] MEDS: traZODone 50 MG TAB PO SCH (21:04)
--- NOTE | 2020-01-14 10:00 | Consultation ---
History of Present Illness Consult date: 01/14/20 Reason for consult: wound care - History of present illness History of present illness: Patient is a 69-year-old -[place] female with known history of dementia, diabetes mellitus and pulmonary embolism was brought into the emergency room from the [facility] on 01/07 for decreased responsiveness, lethargy and hypotension. Pt found to have many pressure wounds, the worst being the sacral wound. General surgery was consulted for evaluation and treatment. Patient unable to give any history at this time. Past History Past Medical History: diabetes, hyperlipidemia, pulmonary embolism, other (Dementia,Asthma) Past Surgical History: No surgical history Social history: no significant social history Family history: no significant family history Medications and Allergies Allergies Allergy/AdvReac Type Severity Reaction Status Date / Time No Known Allergies Allergy Unverified 06/23/14 09:54 Home Medications Medication Instructions Recorded Confirmed Last Taken Type AtorvaSTATin 10 mg PO QHS 05/06/19 05/06/19 05/05/19 History Donepezil HCl [Donepezil HCl Odt] 10 mg PO QHS 05/06/19 05/06/19 Unknown History LORazepam [Lorazepam] 0.5 mg PO BID 05/06/19 05/06/19 Unknown History Melatonin [Melatonin 10MG CAP] 10 mg PO QHS 05/06/19 05/06/19 05/05/19 History Metformin HCl [Metformin HCl ER] 500 mg PO Q2D 05/06/19 05/06/19 05/05/19 History Apixaban [Eliquis] 5 mg PO BID 30 Days #60 tablet 05/08/19 Unknown Rx Apixaban [Eliquis] 10 mg PO BID 7 Days #14 tablet 05/08/19 Unknown Rx Active Meds: Active Medications Acetaminophen (Tylenol) 650 mg PO Q4H PRN PRN Reason: Pain MILD(1-3)/Fever >100.5/GARCIA Last Admin: 01/11/20 22:39 Dose: 650 mg Documented by: Lipase/Protease/Amylase (Donovan Sommers 10,500 Unit) 1 each FEEDTUBE PRN PRN PRN Reason: For Clogged Feeding Tube Atorvastatin Calcium (Atorvastatin) 10 mg PO QHS [facility] Last Admin: 01/13/20 21:04 Dose: 10 mg Documented by: Dextrose (D50w (25gm) Syringe) 0 ml IV Q30MIN PRN; Protocol PRN Reason: Hypoglycemia Last Admin: 01/09/20 21:45 Dose: 20 ml Documented by: Donepezil HCl (Aricept) 10 mg PO QHS [facility] Last Admin: 01/13/20 21:04 Dose: 10 mg Documented by: Ceftriaxone Sodium (Rocephin/Ns 1 Gm/50 Ml) 1 gm in 50 mls @ 100 mls/hr IV Q24H [facility]; Protocol Last Admin: 01/13/20 12:51 Dose: 100 mls/hr Documented by: Dextrose (D5w) 1,000 mls @ 42 mls/hr IV DIRECT [facility] Last Admin: 01/10/20 23:30 Dose: 75 mls/hr Documented by: Magnesium Hydroxide (Milk Of Magnesia) 30 ml PO Q4H PRN PRN Reason: Constipation Megestrol Acetate (Megestrol) 400 mg PO QDAY [facility] Last Admin: 01/13/20 10:07 Dose: 400 mg Documented by: Metoprolol Tartrate (Metoprolol) 25 mg PO BID [facility] Last Admin: 01/13/20 21:05 Dose: 25 mg Documented by: Mirtazapine (Remeron) 15 mg PO QHS [facility] Last Admin: 01/13/20 21:04 Dose: 15 mg Documented by: Ondansetron HCl (Zofran) 4 mg IV Q8H PRN PRN Reason: Nausea And Vomiting Simple Syrup (Simple Syrup) 15 ml FEEDTUBE PRN PRN PRN Reason: Hypoglycemia Simple Syrup (Simple Syrup) 30 ml FEEDTUBE PRN PRN PRN Reason: Hypoglycemia Sodium Bicarbonate (Sodium Bicarbonate) 325 mg FEEDTUBE PRN PRN PRN Reason: For Clogged Feeding Tube Sodium Chloride (Sodium Chloride Flush Syringe 10 Ml) 10 ml IV BID [facility] Last Admin: 01/13/20 21:04 Dose: 10 ml Documented by: Sodium Chloride (Sodium Chloride Flush Syringe 10 Ml) 10 ml IV PRN PRN PRN Reason: LINE FLUSH Trazodone HCl (Desyrel) 25 mg PO QHS [facility] Last Admin: 01/13/20 21:04 Dose: 25 mg Documented by: Review of Systems ROS unobtainable: due to mental status Exam Vital Signs Pulse Resp BP Pulse Ox 125 H 11 L 123/74 99 01/08/20 15:30 01/08/20 15:30 01/08/20 15:30 01/08/20 15:30 - General physical appearance Positive: no distress, no pain, other (Noncommunicative. Eyes are open.) - Respiratory Positive: normal expansion, normal respiratory effort - Integumentary other (Large sacral wound noted with most of the skin intact but compromised. Thin, foul-smelling drainage is noted in the wound. Patient does not display an y tenderness during exam.) Results - Labs 01/10/20 10:10 01/13/20 07:00 Abnormal lab results 01/13/20 01/13/20 01/13/20 Range/Units 12:14 17:52 21:40 POC Glucose 205 H 172 H 186 H (70-105) 01/14/20 Range/Units 04:28 POC Glucose 115 H (70-105) Assessment and Plan - Patient Problems (1) Sacral decubitus ulcer Current Visit: Yes Status: Acute Plan to address problem: Pt stable. I discussed the situation with her spouse. Our 2 options are to be aggressive and debride that area versus doing conservative care with dressing changes. I told him the main issue really involves whether she will be turned on a regular basis to minimize pressure in any 1 area. There is no point to do an aggressive debridement if she is going to be in the same situation with constant pressure on this area. There is no point to subject her to such pain for no benefit. He states that he is currently working on getting additional help so this can be done at home on a regular basis. He would like to consider his options and would like to talk again tomorrow before making any decisions. I will call him tomorrow and try to make a final plan as for the care of this wound. Would continue with the wound care plan that was established by the wound care nurse for now. Would asked that the Eliquis be held until we have a final decision on surgery. Please call with questions. Time=40min
[2020-01-14] MEDS: MEGESTROL 400 MG/10 ML ORAL LIQD PO SCH (10:32)
[2020-01-14] MEDS: METOPROLOL TARTRATE 25 MG TAB PO SCH ×2 (10:32→21:57)
--- NOTE | 2020-01-14 10:47 | Progress Note ---
Assessment and Plan Assessment and plan: Patient is a 69-year-old -[place] female with known history of dementia, diabetes mellitus and pulmonary embolism was brought into the emergency room for decreased responsiveness, lethargy and hypotension. According to home health nurse patient has become less active and blood pressure was said to be low. She was brought to the emergency room for evaluation. Further history cannot be obtained from patient. Upon arrival in the emergency room patient had a low-grade fever. Work-up in the emergency room reveals elevated white blood cell count of 13.5, elevated BUN and creatinine 30 and 1.1 respectively. Found to be dehydrated and hypernatremic. Urinalysis shows UTI. Patient subsequently started on IV fluid and empiric IV antibiotics admitted for further evaluation. 01/08. Patient seen and examined at bedside this month. Patient not talking much this morning. Discussed case with patient spouse [patient usually does not talk much due to possible underlying dementia]. Started patient on her home medications today. Sodium slightly elevated from yesterday-162. Switch to hyp otonic solution after resuscitation. Monitor BMP 01/09. More awake today. Sodium is improving. Has tachycardia today. Received a dose of metoprolol and is on telemetry. No arrhythmias noted. Has no congestion on chest xray. Will continue IV hydration for now. She needs assistance with meals due to advanced dementia. 01/10. Sodium is improving, will speak to family about diet and possible NGT and medication, Her dementia may be the prohibiting factor. Anticipate discharge in 24 to 48 hrs. ?IF SHE IS BEDBOUND. Continue Antibiotics. 01/11. Patient seen and examined at bedside this morning. She is not eating. Discussed with patients - plan for PEG placement. GI consulted. Blood culture from 01/07 grew GN rods. Repeat Blood culture sent. She is on ceftriaxone. Her sodium level is improving gradually. 01/12. Plan for tube placement. GI on board. 01/13. Patient had temperature 101 overnight. Patient has been on appropriate antibiotics for UTI. Urine culture has been reviewed. This point need to evaluate for other etiology of fever. Surgery consulted for evaluation for need for wound debridement. Plan for PEG tube placement today - Patient Problems (1) Hypernatremia Current Visit: Yes Status: Acute Plan to address problem: Monitor sodium levels (2) Sepsis Current Visit: Yes Status: Acute Qualifiers: Sepsis type: sepsis due to unspecified organism Sepsis acute organ dysfunction status: unspecified Qualified Code(s): A41.9 - Sepsis, unspecified organism Plan to address problem: Urine culture grew Proteus sensitive to ceftriaxone. Patient may need wound debridement-surgery consulted Patient still having temperature spikes on ceftriaxone. Will consult ID to determine appropriate antibiotics Monitor vital signs closely (3) UTI (urinary tract infection) Current Visit: Yes Status: Acute Qualifiers: Urinary tract infection type: acute cystitis Hematuria presence: without hematuria Qualified Code(s): N30.00 - Acute cystitis without hematuria Plan to address problem: Continue antibiotics Urine cultures positive for Proteus (4) Bilateral pulmonary embolism Current Visit: No Status: Chronic Plan to address problem: Had pulmonary embolism 7 months ago. As per pulmonology, patient needs indefinite anticoagulation Continue Eliquis 5 mg twice daily (5) Sacral decubitus ulcer Current Visit: Yes Status: Acute Plan to address problem: This was present on admission May need debridement-surgery consulted Continue wound care (6) Uncontrolled diabetes mellitus Current Visit: No Status: Acute Plan to address problem: DM management (7) Dementia Current Visit: No Status: Chronic Plan to address problem: Continue donepezil (8) Moderate protein-calorie malnutrition Current Visit: Yes Status: Acute Plan to address problem: She is not eating well and is getting feeds through the NG tube. Discussed with - this problem has been chronic and he is open to getting a PEG placement to supplement her intake GI consult for PEG placement. (9) DVT prophylaxis Current Visit: No Status: Acute Plan to address problem: Eliquis on hold for possible debridement History Interval history: Patient seen and examined at bedside this morning. Still had temperature spikes yesterday. Urine culture result grew Proteus sensitive to ceftriaxone. At this point, need to evaluate for wound debridement. Surgery consulted Hospitalist Physical - Constitutional Vitals: Temp Pulse Resp BP Pulse Ox 99.8 F H 103 H 16 125/68 98 01/14/20 04:16 01/14/20 04:16 01/14/20 04:16 01/14/20 04:16 01/14/20 04:16 General appearance: Present: no acute distress - EENT Eyes: Present: PERRL - Neck Neck: Present: supple - Respiratory Respiratory: bilateral: CTA - Cardiovascular Heart Sounds: Present: S1 & S2 - Extremities Extremities: No edema - Abdominal General gastrointestinal: soft, non-tender, non-distended, normal bowel sounds - Neurologic Neurologic: CNII-XII intact Results - Labs CBC & Chem 7: 01/10/20 10:10 01/13/20 07:00 Labs: Laboratory Last Values WBC 13.4 K/mm3 (4.5-11.0) H 01/10/20 10:10 RBC 3.83 M/mm3 (3.65-5.03) 01/10/20 10:10 Hgb 11.4 gm/dl (10.1-14.3) 01/10/20 10:10 Hct 34.7 % (30.3-42.9) D 01/10/20 10:10 MCV 91 fl (79-97) 01/10/20 10:10 MCH 30 pg (28-32) 01/10/20 10:10 MCHC 33 % (30-34) 01/10/20 10:10 RDW 14.2 % (13.2-15.2) 01/10/20 10:10 Plt Count 201 K/mm3 (140-440) 01/10/20 10:10 Lymph % (Auto) 7.2 % (13.4-35.0) L 01/10/20 10:10 [place] % (Auto) 2.1 % (0.0-7.3) 01/10/20 10:10 Eos % (Auto) 0.3 % (0.0-4.3) 01/10/20 10:10 Baso % (Auto) 0.4 % (0.0-1.8) 01/10/20 10:10 Lymph # 1.0 K/mm3 (1.2-5.4) L 01/10/20 10:10 [place] # 0.3 K/mm3 (0.0-0.8) 01/10/20 10:10 Eos # 0.0 K/mm3 (0.0-0.4) 01/10/20 10:10 Baso # 0.1 K/mm3 (0.0-0.1) 01/10/20 10:10 Add Manual Diff Complete 01/08/20 16:29 Total Counted 100 01/08/20 16:29 Seg Neutrophils % 90.0 % (40.0-70.0) H 01/10/20 10:10 Seg Neuts % (Manual) 85.0 % (40.0-70.0) H 01/08/20 16: Band Neutrophils % 0 % 01/08/20 16:29 Lymphocytes % (Manual) 11.0 % (13.4-35.0) L 01/08/20 16:29 Reactive Lymphs % (Man) 0 % 01/08/20 16:29 Monocytes % (Manual) 3.0 % (0.0-7.3) 01/08/20 16: Eosinophils % (Manual) 1.0 % (0.0-4.3) 01/08/20 16: Basophils % (Manual) 0 % (0.0-1.8) 01/08/20 16: Metamyelocytes % 0 % 01/08/20 16: Myelocytes % 0 % 01/08/20 16: Promyelocytes % 0 % 01/08/20 16: Blast Cells % 0 % 01/08/20 16: Nucleated RBC % Not Reportable 01/08/20 16:29 Seg Neutrophils # 12.0 K/mm3 (1.8-7.7) H 01/10/20 10:10 Seg Neutrophils # Man 11.5 K/mm3 (1.8-7.7) H 01/08/20 16:29 Band Neutrophils # 0.0 K/mm3 01/08/20 16: Lymphocytes # (Manual) 1.5 K/mm3 (1.2-5.4) 01/08/20 16:29 Abs React Lymphs (Man) 0.0 K/mm3 01/08/20 16: Monocytes # (Manual) 0.4 K/mm3 (0.0-0.8) 01/08/20 16: Eosinophils # (Manual) 0.1 K/mm3 (0.0-0.4) 01/08/20 16: Basophils # (Manual) 0.0 K/mm3 (0.0-0.1) 01/08/20 16: Metamyelocytes # 0.0 K/mm3 01/08/20 16: Myelocytes # 0.0 K/mm3 01/08/20 16: Promyelocytes # 0.0 K/mm3 01/08/20 16: Blast Cells # 0.0 K/mm3 01/08/20 16:29 WBC Morphology Not Reportable 01/08/20 16:29 Hypersegmented Neuts Not Reportable 01/08/20 16:29 Hyposegmented Neuts Not Reportable 01/08/20 16:29 Hypogranular Neuts Not Reportable 01/08/20 16:29 Smudge Cells Not Reportable 01/08/20 16:29 Toxic Granulation Not Reportable 01/08/20 16:29 Toxic Vacuolation Not Reportable 01/08/20 16:29 Dohle Bodies Not Reportable 01/08/20 16:29 Pelger-Huet Anomaly Not Reportable 01/08/20 16:29 Lata Rods Not Reportable 01/08/20 16:29 Platelet Estimate Not Reportable 01/08/20 16:29 Clumped Platelets Not Reportable 01/08/20 16:29 Plt Clumps, EDTA Not Reportable 01/08/20 16:29 Large Platelets Not Reportable 01/08/20 16:29 Giant Platelets Not Reportable 01/08/20 16:29 Platelet Satelliting Not Reportable 01/08/20 16:29 Plt Morphology Comment Not Reportable 01/08/20 16:29 RBC Morphology Normal 01/08/20 16:29 Dimorphic RBCs Not Reportable 01/08/20 16:29 Polychromasia Not Reportable 01/08/20 16:29 Hypochromasia Not Reportable 01/08/20 16:29 Poikilocytosis Not Reportable 01/08/20 16:29 Anisocytosis Not Reportable 01/08/20 16:29 Microcytosis Not Reportable 01/08/20 16:29 Macrocytosis Not Reportable 01/08/20 16:29 Spherocytes Not Reportable 01/08/20 16:29 Pappenheimer Bodies Not Reportable 01/08/20 16:29 Sickle Cells Not Reportable 01/08/20 16:29 Target Cells Not Reportable 01/08/20 16:29 Tear Drop Cells Not Reportable 01/08/20 16:29 Ovalocytes Not Reportable 01/08/20 16:29 Helmet Cells Not Reportable 01/08/20 16:29 Lombardi-Staley Bodies Not Reportable 01/08/20 16:29 [place] Rings Not Reportable 01/08/20 16:29 Leonidas Cells Not Reportable 09/03/20 16:29 Bite Cells Not Reportable 01/08/20 16:29 Crenated Cell Not Reportable 01/08/20 16:29 Elliptocytes Not Reportable 01/08/20 16:29 Acanthocytes (Spur) Not Reportable 01/08/20 16:29 Rouleaux Not Reportable 01/08/20 16:29 Hemoglobin C Crystals Not Reportable 01/08/20 16:29 Schistocytes Not Reportable 01/08/20 16:29 Malaria parasites Not Reportable 01/08/20 16:29 Gideon Bodies Not Reportable 01/08/20 16:29 Hem Pathologist Commnt No 01/08/20 16:29 PT 17.1 Sec. (12.2-14.9) H 01/09/20 05:52 INR 1.36 (0.87-1.13) H 01/09/20 05:52 Sodium 145 mmol/L (137-145) 01/13/20 07:00 Potassium 3.6 mmol/L (3.6-5.0) 01/13/20 07:00 Chloride 110.0 mmol/L (98-107) H 01/13/20 07:00 Carbon Dioxide 24 mmol/L (22-30) 01/13/20 07:00 Anion Gap 15 mmol/L 01/13/20 07:00 BUN 13 mg/dL (7-17) 01/13/20 07:00 Creatinine 0.6 mg/dL (0.6-1.2) 01/13/20 07:00 Estimated GFR > 60 ml/min 01/13/20 07:00 BUN/Creatinine Ratio 22 % 01/13/20 07:00 Glucose 139 mg/dL (65-100) H 01/13/20 07:00 POC Glucose 115 (70-105) H 01/14/20 04:28 Hemoglobin A1c 5.3 % (4-6) 01/11/20 00:45 Lactic Acid 1.20 mmol/L (0.7-2.0) 01/09/20 05:52 Calcium 7.8 mg/dL (8.4-10.2) L 01/13/20 07:00 Magnesium 2.10 mg/dL (1.7-2.3) 01/10/20 05:23 Total Bilirubin 0.40 mg/dL (0.1-1.2) 01/08/20 16:29 AST 48 units/L (5-40) H 01/08/20 16:29 ALT 33 units/L (7-56) 01/08/20 16:29 Alkaline Phosphatase 44 units/L (35-129) 01/08/20 16:29 Total Protein 6.5 g/dL (6.3-8.2) 01/08/20 16:29 Albumin 2.5 g/dL (3.9-5) L 01/08/20 16:29 Albumin/Globulin Ratio 0.6 % 01/08/20 16:29 TSH 2.440 mlU/mL (0.270-4.200) 01/10/20 10:10 Urine Color [place] (Yellow) 01/08/20 Unknown Urine Turbidity Cloudy (Clear) 01/08/20 Unknown Urine pH 5.0 (5.0-7.0) 01/08/20 Unknown Ur Specific [place] 1.018 (1.003-1.030) 01/08/20 Unknown Urine Protein 30 mg/dl mg/dL (Negative) 01/08/20 Unknown Urine Glucose (UA) Neg mg/dL (Negative) 01/08/20 Unknown Urine Ketones Neg mg/dL (Negative) 01/08/20 Unknown Urine Blood Mod (Negative) 01/08/20 Unknown Urine Nitrite Neg (Negative) 01/08/20 Unknown Urine Bilirubin Neg (Negative) 01/08/20 Unknown Urine Urobilinogen < 2.0 mg/dL (<2.0) 01/08/20 Unknown Ur Leukocyte Esterase Sm (Negative) 01/08/20 Unknown Urine WBC (Auto) 11.0 /HPF (0.0-6.0) H 01/08/20 Unknown Urine RBC (Auto) 7.0 /HPF (0.0-6.0) 01/08/20 Unknown U Epithel Cells (Auto) < 1.0 /HPF (0-13.0) 01/08/20 Unknown Urine Bacteria (Auto) 1+ /HPF (Negative) 01/08/20 Unknown Urine Mucus 2+ /HPF 01/08/20 Unknown Urine Yeast (Budding) 1+ /HPF 01/08/20 Unknown Microbiology: Microbiology 01/08/20 16:29 Peripheral/Venous Blood Culture - Final NO GROWTH AFTER 5 DAYS 01/12/20 13:22 Peripheral/Venous Blood Culture - Preliminary NO GROWTH AFTER 24 HOURS 01/12/20 13:22 Peripheral/Venous Blood Culture - Preliminary NO GROWTH AFTER 24 HOURS 01/08/20 16:40 Peripheral/Venous Blood Culture - Final Proteus Mirabilis Mejía/IV: Voiding Method Incontinent IV Catheter Type [Right Peripheral IV Forearm] Active Medications - Current Medications Current Medications: Generic Name Dose Route Start Last Admin Trade Name Freq PRN Reason Stop Dose Admin Acetaminophen 650 mg 01/08/20 23:14 01/11/20 22:39 Tylenol PO 650 mg Q4H PRN Administration Pain MILD(1-3)/Fever >100.5/GARCIA Lipase/Protease/Amylase 1 each 01/11/20 16:[address] 10,500 Unit FEEDTUBE PRN PRN For Clogged Feeding Tube Atorvastatin Calcium 10 mg 01/09/20 22:00 01/13/20 21:04 Atorvastatin PO 10 mg QHS BRO Administration Dextrose 0 ml 01/08/20 23:14 01/09/20 21:45 D50w (25gm) Syringe IV 20 ml Q30MIN PRN Administration Hypoglycemia Protocol Donepezil HCl 10 mg 01/09/20 22:00 01/13/20 21:04 Aricept PO 10 mg QHS BRO Administration Ceftriaxone Sodium 1 gm in 50 mls @ 100 mls/hr 01/09/20 13:00 01/13/20 12:51 Rocephin/Ns 1 Gm/50 Ml IV 100 mls/hr Q24H BRO Administration Protocol Dextrose 1,000 mls @ 42 mls/hr 01/09/20 23:00 01/10/20 23:30 D5w IV 75 mls/hr DIRECT BRO Administration Magnesium Hydroxide 30 ml 01/08/20 23:14 Milk Of Magnesia PO Q4H PRN Constipation Megestrol Acetate 400 mg 01/12/20 11:00 01/14/20 10:32 Megestrol PO Not Given QDAY BRO Metoprolol Tartrate 25 mg 01/13/20 12:00 01/14/20 10:32 Metoprolol PO Not Given BID BRO Mirtazapine 15 mg 01/09/20 22:00 01/13/20 21:04 Remeron PO 15 mg QHS BRO Administration Ondansetron HCl 4 mg 01/08/20 23:14 Zofran IV Q8H PRN Nausea And Vomiting Simple Syrup 15 ml 01/11/20 16:25 Simple Syrup FEEDTUBE PRN PRN Hypoglycemia Simple Syrup 30 ml 01/11/20 16:25 Simple Syrup FEEDTUBE PRN PRN Hypoglycemia Sodium Bicarbonate 325 mg 01/11/20 16:25 Sodium Bicarbonate FEEDTUBE PRN PRN For Clogged Feeding Tube Sodium Chloride 10 ml 01/09/20 10:00 01/14/20 10:34 Sodium Chloride Flush Syringe 10 Ml IV 10 ml BID BRO Administration Sodium Chloride 10 ml 01/08/20 23:14 Sodium Chloride Flush Syringe 10 Ml IV PRN PRN LINE FLUSH Trazodone HCl 25 mg 01/09/20 22:00 01/13/20 21:04 Desyrel PO 25 mg QHS BRO Administration Nutrition/Malnutrition Assess - Dietary Evaluation Nutrition/Malnutrition Findings: Nutrition Notes Start: 01/09/20 12:13 Freq: Status: Active Protocol: Document 01/12/20 10:20 LP (Rec: 01/12/20 10:25 LP [id number]) Nutrition Notes Initial or Follow up Reassessment Current Diagnosis Decubitus(Pressure Ulcer), Diabetes,Sepsis Other Pertinent Diagnosis UTI, dementia, PE, Sacral wound Current Diet NPO Labs/Tests Na 148 BG 128 Pertinent Medications Reviewed Height 5 ft 2 in Weight 42.5 kg [place] Body Weight (kg) 50.00 BMI 17.1 Weight Status Underweight Subjective/Other Information Consult for TF. Dobhoff placed . Burn Absent Trauma Absent Difficulty In Chewing Current % PO Negligible Minimum of two criteria No Reduced Telecine Operator Strength Measurably Reduced (severe) #2 Nutrition Diagnosis Inadequate oral intake Etiology AMS As Evidenced by Signs and Symptoms Pt not eating or drinking well #1 Nutrition Diagnosis Increased nutrient needs ( specify in comment below) Diagnosis Progress(for reassessment Continues documentation) Is patient on ventilator? No Is Patient Ambulatory and/or Out of Bed No REE-([facility]-confined to bed) 1084.116 Kcal/Kg value to use for calculation 35 Approximate Energy Requirements Using 1488 kcal/Kg Calculation Used for Recommendations Kcal/kg Additional Notes Protein needs are: 52-64 g (1. 2-1.5 g/kg) Fluid needs are: 1 ml/kcal Nutrition Intervention Change Diet Order: TF Nutrition Support: Jevity 1.2 at 50ml/hr Flush 150ml q4h for hypernatremia 100ml q4h once resolved Kcal 1,440 Protein (gm) 67 Fluid (mL) 968 Add Supplement/Snack (indicate name/kcal D/C /protein ) Goal #1 Meet at least 80% of kcal and protein needs via TF Anticipated Discharge Needs: Unable to determine at this time Follow-Up By: 01/14/20 Additional Comments Follow for TF start/tolerance, Na levels
[2020-01-14] MEDS ORDERED: VANCOMYCIN PHARMACY TO DOSE IV SCH (11:00)
[2020-01-14 11:27] LABS: Hemoglobin 9.5 gm/dl (10.1-14.3); Mean Corpuscular HGB Conc 34 % (30-34); Mean Corpuscular Volume 88 fl (79-97); Platelet Count 240 K/mm3 (140-440)
[2020-01-14 11:38] LABS: INR 1.23 (0.87-1.13)
[2020-01-14 11:39] LABS: Partial Thromboplastin Time 34.4 Sec. (24.2-36.6)
[2020-01-14 11:45] LABS: BUN/Creatinine Ratio 33; Blood Urea Nitrogen 13 mg/dL (7-17); Hemolysis Index 10
[2020-01-14] MEDS ORDERED: ceFAZolin/Water 2 GM/20 ML 2 GM/20 ML SYRINGE IV NR (12:00)
[2020-01-14] MEDS ORDERED: VANCOMYCIN/NS 1 GM/250 ML 1 GM/250 ML BAG IV ONE (12:00)
[2020-01-14] MEDS ORDERED: ceFAZolin/Water 2 GM/20 ML 2 GM/20 ML SYRINGE IV ONE (12:06)
[2020-01-14] MEDS ORDERED: WATER FOR IRRIG STERILE 250 ML BOTTLE IR ONE (12:08)
[2020-01-14] MEDS ORDERED: WATER FOR IRRIG STERILE 1,000 ML BOTTLE ONE (12:08)
[2020-01-14] MEDS ORDERED: SODIUM CHLORIDE 0.9% 1000 ML 1,000 ML ONE (12:08)
--- NOTE | 2020-01-14 12:11 | Progress Note ---
Assessment and Plan Impression * Hypernatremia * Dehydration * Dementia * Hypokalemia * Diabetes Recommendations * Patient clinically appears to be dehydrated. * Hypernatremia is most likely secondary to free water deficit, improving from 162->148->145->142 off IVF * Replete K prn, off IVF this AM * Prior urine, imaging studies reviewed * Patient currently has an NG tube in place. Continue free water through the NG tube, can hold off IVF for now, adjust K from tube feeds as able * Reviewed primary and cyber security consultant notes, aware of plan for PEG tube * Monitor fluid status and electrolytes closely * Avoid nephrotoxins * Magnesium and potassium level is now normal Subjective Date of service: 01/14/20 Interval history: Appears comfortable, no acute changes noted. NG tube in place. Non-verbal Objective - Exam Narrative Exam: General appearance: chronically ill, frail, non-verbal EENT: PERRL, mucous membranes moist Neck: no carotid bruit, supple Respiratory: Present: Clear to Ascultation Cardiology: regular, normal heart rate, S1S2, no murmurs Gastrointestinal: normal, normoactive bowel sounds Integumentary: no rash, other (No edema) Neuro: alert and tracks with eyes, but does not speak - Vital Signs Vital signs: Vital Signs - 12hr 01/14/20 01/14/20 04:16 10:38 Temperature 99.8 F H Pulse Rate 103 H Pulse Rate [ 117 H Apical] Respiratory 16 14 Rate Blood Pressure 125/68 O2 Sat by Pulse 98 Oximetry - Lab 01/14/20 11:01 01/14/20 11:01 Most recent lab results Calcium 8.0 mg/dL (8.4-10.2) L 01/14/20 11:01 Magnesium 2.10 mg/dL (1.7-2.3) 01/10/20 05:23 Medications & Allergies - Medications Allergies/Adverse Reactions: Allergies No Known Allergies Allergy (Unverified 06/23/14 09:54) Home Medications: Home Medications Medication Instructions Recorded Confirmed Last Taken Type AtorvaSTATin 10 mg PO QHS 05/06/19 05/06/19 05/05/19 History Donepezil HCl [Donepezil HCl Odt] 10 mg PO QHS 05/06/19 05/06/19 Unknown History LORazepam [Lorazepam] 0.5 mg PO BID 05/06/19 05/06/19 Unknown History Melatonin [Melatonin 10MG CAP] 10 mg PO QHS 05/06/19 05/06/19 05/05/19 History Metformin HCl [Metformin HCl ER] 500 mg PO Q2D 05/06/19 05/06/19 05/05/19 History Apixaban [Eliquis] 5 mg PO BID 30 Days #60 tablet 05/08/19 Unknown Rx Apixaban [Eliquis] 10 mg PO BID 7 Days #14 tablet 05/08/19 Unknown Rx Active Medications: Generic Name Dose Route Start Last Admin Trade Name Freq PRN Reason Stop Dose Admin Acetaminophen 650 mg 01/08/20 23:14 01/11/20 22:39 Tylenol PO 650 mg Q4H PRN Administration Pain MILD(1-3)/Fever >100.5/GARCIA Lipase/Protease/Amylase 1 each 01/11/20 16:25 Pancreaze 10,500 Unit FEEDTUBE PRN PRN For Clogged Feeding Tube Atorvastatin Calcium 10 mg 01/09/20 22:00 01/13/20 21:04 Atorvastatin PO 10 mg QHS BRO Administration Dextrose 0 ml 01/08/20 23:14 01/09/20 21:45 D50w (25gm) Syringe IV 20 ml Q30MIN PRN Administration Hypoglycemia Protocol Donepezil HCl 10 mg 01/09/20 22:00 01/13/20 21:04 Aricept PO 10 mg QHS BRO Administration Cefepime HCl 1 gm in 100 mls @ 200 mls/hr 01/14/20 14:00 Cefepime/Ns 1 Gm/100 Ml IV Q8HR BRO Protocol Vancomycin HCl 1 gm in 250 mls @ 167.007 mls/hr 01/14/20 12:00 Vancomycin/Ns 1 Gm/250 Ml IV 01/14/20 13:29 ONCE ONE Sodium Chloride 1,000 mls @ 50 mls/hr 01/14/20 12:00 Nacl 0.9% 1000 Ml IV 01/15/20 11:59 DIRECT BRO Cefazolin Sodium 2 gm in 20 mls @ 80 mls/hr 01/14/20 12:00 Ancef/Sterile Water 2 Gm/20 Ml IV 01/14/20 23:00 PREOP NR Protocol Potassium Chloride 10 meq/ 1,005 mls @ 75 mls/hr 01/14/20 12:15 Dextrose IV DIRECT BRO Magnesium Hydroxide 30 ml 01/08/20 23:14 Milk Of Magnesia PO Q4H PRN Constipation Megestrol Acetate 400 mg 01/12/20 11:00 01/14/20 10:32 Megestrol PO Not Given QDAY BRO Metoprolol Tartrate 25 mg 01/13/20 12:00 01/14/20 10:32 Metoprolol PO Not Given BID BRO Mirtazapine 15 mg 01/09/20 22:00 01/13/20 21:04 Remeron PO 15 mg QHS BRO Administration Ondansetron HCl 4 mg 01/08/20 23:14 Zofran IV Q8H PRN Nausea And Vomiting Simple Syrup 15 ml 01/11/20 16:25 Simple Syrup FEEDTUBE PRN PRN Hypoglycemia Simple Syrup 30 ml 01/11/20 16:25 Simple Syrup FEEDTUBE PRN PRN Hypoglycemia Sodium Bicarbonate 325 mg 01/11/20 16:25 Sodium Bicarbonate FEEDTUBE PRN PRN For Clogged Feeding Tube Sodium Chloride 10 ml 01/09/20 10:00 01/14/20 10:34 Sodium Chloride Flush Syringe 10 Ml IV 10 ml BID BRO Administration Sodium Chloride 10 ml 01/08/20 23:14 Sodium Chloride Flush Syringe 10 Ml IV PRN PRN LINE FLUSH Trazodone HCl 25 mg 01/09/20 22:00 01/13/20 21:04 Desyrel PO 25 mg QHS BRO Administration
[2020-01-14] MEDS ORDERED: POTASSIUM CHLORIDE 10 MEQ in DEXTROSE 5% IN WATER 1,000 ML IV SCH (12:15)
[2020-01-14] MEDS ORDERED: propofoL 200 MG/20 ML VIAL IV ONE (13:43)
--- NOTE | 2020-01-14 14:30 | Post Anesthesia Evaluation ---
- Post Anesthesia Evaluation Patient Participated: Yes (Dementia) Airway Patent: Yes Stable Respiratory Function: Yes Nausea/Vomiting: No Temp > 96.8F: Yes Pain Manageable: Yes Adequeate Hydration: Yes Anesthesia Complications: No Block Receding Appropriately: Not Applicable Patient on Ventilator: No
--- NOTE | 2020-01-14 14:30 | Anesthesia Day of Surgery ---
Anesthesia Day of Surgery - Day of Surgery Patient Examined: Yes Patient H&P Reviewed: Yes Patient is NPO: Yes
--- NOTE | 2020-01-14 14:32 | Anesthesia Consultation ---
Anesthesia Consult and Med Hx Date of service: 01/14/20 - Airway Intubation Access Assessment: Probably Good - Pre-Operative Health Status ASA Pre-Surgery Classification: ASA3 Proposed Anesthetic Plan: MAC - Pulmonary Hx Asthma: No COPD: No Hx Pneumonia: No - Central Nervous System Hx Psychiatric Problems: Yes (Dementia) - Endocrine Hx End Stage Renal Disease: No Hx Non-Insulin Dependent Diabetes: Yes - Additional Comments Anesthesia Medical History Comments: Impression. Hypernatremia. Dehydration. Dementia. Hypokalemia. Diabetes
--- NOTE | 2020-01-14 15:13 | Post Operative Note ---
Pre-op diagnosis: dysphagia, weight loss Post-op diagnosis: same Findings: EGD: hiatal hernia - mild gastritis - negative other - 20 F pull peg placed, bumper at 3 cm Procedure: EGD/peg Anesthesia: MAC Surgeon: REAGAN MCDOWELL Estimated blood loss: none Pathology: list Specimen disposition: to lab Condition: stable Disposition: floor
--- NOTE | 2020-01-14 16:26 | Operative Report ---
PROCEDURE: Esophagogastroduodenoscopy. INDICATION: 1. Weight loss. 2. Dysphagia. MEDICATIONS: Propofol per CLINICAL CARE LEADER. COMPLICATIONS: None. DESCRIPTION OF PROCEDURE: The patient was brought to procedure suite. The patient had the procedure discussed with her family at length. All risks, complications, and benefits discussed after which the patient's family gave verbal consent for the procedure to be performed. The patient was placed in left lateral decubitus position. Mouth block placed in the patient's oral cavity. After adequate sedation medication as above, endoscope placed in mouth and brought to level of the second portion of duodenum. Retroflexion view performed. The patient's vital signs remained stable throughout the procedure. FINDINGS: There was a small hiatal hernia at GE junction 38 cm from the gums. Esophagus otherwise appeared to be normal. Mild gastritis noted in the stomach. Stomach otherwise appeared to be normal. Duodenum appeared to be normal. Retroflexion view performed in the stomach showed no other pathology other than noted above. After this inspection using standard technique and transillumination, area for adequate placement of PEG was found. A 20-Slovak pull PEG was then placed. Bump was noted to be at 3 cm. Post-procedure appearance was satisfactory. The patient tolerated the procedure well. No complications during the procedure. IMPRESSION: 1. Hiatal hernia. 2. Gastritis. 3. Otherwise normal EGD. 4. PEG tube placed without obvious complications. RECOMMENDATIONS: 1. Standard PEG tube orders, see chart. 2. Watch for signs of bleeding or infection. 3. Okay to use PEG in 6 hours. 4. We will follow up in a.m. JOB# [id number] CAB/NTS
[2020-01-14] MEDS: CEFEPIME/NS 1 GM/100 ML 1 GM/100 ML BAG IV SCH ×2 (16:34→21:56)
[2020-01-14] MEDS: DEXTROSE 50% IN WATER (25GM) 50 ML SYRINGE IV PRN (21:54)
[2020-01-14] MEDS: MIRTAZAPINE 15 MG TAB PO SCH (21:57)
[2020-01-14] MEDS: traZODone 50 MG TAB PO SCH (21:58)
[2020-01-14] MEDS: DONEPEZIL 10 MG TAB PO SCH (21:58)
--- NOTE | 2020-01-14 23:38 | XRay Report ---
ABDOMEN 1 VIEW(S) INDICATION: peg tube placement COMPARISON: None available. FINDINGS: Contrasted injected into the defect to is within the stomach. Bowel gas pattern: Within normal limits. No dilated loops of large or small bowel. Free air: None. Calcified gallstones: None seen. Calcified urinary tract calculi: None seen. Additional Findings: None. Skeletal structures: No acute abnormality. IMPRESSION: 1. No acute findings. Signer Name: Martin Henson MD Signed: 01/14/2020 11:34 PM Workstation Name: [id number]
[2020-01-15] MEDS: CEFEPIME/NS 1 GM/100 ML 1 GM/100 ML BAG IV SCH ×2 (05:14→14:29)
[2020-01-15 06:19] LABS: Blood Urea Nitrogen 12 mg/dL (7-17); Calcium 7.8 mg/dL (8.4-10.2); Hemolysis Index 83
[2020-01-15 06:42] LABS: BUN/Creatinine Ratio 24
[2020-01-15] MEDS ORDERED: LIPASE 10,500/PROTEASE 25,000/AMYLASE 43,750 (UNITS) DR CAP FEEDTUBE PRN (10:26)
[2020-01-15] MEDS ORDERED: SIMPLE SYRUP 15 ML FEEDTUBE PRN ×2 (10:26)
[2020-01-15] MEDS ORDERED: SODIUM BICARBONATE 325 MG TAB FEEDTUBE PRN (10:26)
[2020-01-15] MEDS: METOPROLOL TARTRATE 25 MG TAB PO SCH (11:16)
[2020-01-15] MEDS: MEGESTROL 400 MG/10 ML ORAL LIQD PO SCH (11:17)
[2020-01-15] MEDS: VANCOMYCIN 750 MG in SODIUM CHLORIDE 0.9% 250ML 250 ML IV SCH (11:17)
[2020-01-15] MEDS: SODIUM CHLORIDE 0.9% 1000 ML 1,000 ML IV SCH (11:17)
--- NOTE | 2020-01-15 11:50 | Progress Note ---
Assessment and Plan Assessment and plan: Patient is a 69-year-old -[place] female with known history of dementia, diabetes mellitus and pulmonary embolism was brought into the emergency room for decreased responsiveness, lethargy and hypotension. According to home health nurse patient has become less active and blood pressure was said to be low. She was brought to the emergency room for evaluation. Further history cannot be obtained from patient. Upon arrival in the emergency room patient had a low-grade fever. Work-up in the emergency room reveals elevated white blood cell count of 13.5, elevated BUN and creatinine 30 and 1.1 respectively. Found to be dehydrated and hypernatremic. Urinalysis shows UTI. Patient subsequently started on IV fluid and empiric IV antibiotics admitted for further evaluation. 01/08. Patient seen and examined at bedside this month. Patient not talking much this morning. Discussed case with patient spouse [patient usually does not talk much due to possible underlying dementia]. Started patient on her home medications today. Sodium slightly elevated from yesterday-162. Switch to hyp otonic solution after resuscitation. Monitor BMP 01/09. More awake today. Sodium is improving. Has tachycardia today. Received a dose of metoprolol and is on telemetry. No arrhythmias noted. Has no congestion on chest xray. Will continue IV hydration for now. She needs assistance with meals due to advanced dementia. 01/10. Sodium is improving, will speak to family about diet and possible NGT and medication, Her dementia may be the prohibiting factor. Anticipate discharge in 24 to 48 hrs. ?IF SHE IS BEDBOUND. Continue Antibiotics. 01/11. Patient seen and examined at bedside this morning. She is not eating. Discussed with patients - plan for PEG placement. GI consulted. Blood culture from 01/07 grew GN rods. Repeat Blood culture sent. She is on ceftriaxone. Her sodium level is improving gradually. 01/12. Plan for tube placement. GI on board. 01/13. Patient had temperature 101 overnight. Patient has been on appropriate antibiotics for UTI. Urine culture has been reviewed. This point need to evaluate for other etiology of fever. Surgery consulted for evaluation for need for wound debridement. Plan for PEG tube placement today. 01/14. PEG tube placed. Surgery and ID on board. Plan for wound debridement as per surgery - Patient Problems (1) Hypernatremia Current Visit: Yes Status: Resolved Plan to address problem: Resolved (2) Sepsis Current Visit: Yes Status: Acute Qualifiers: Sepsis type: sepsis due to unspecified organism Sepsis acute organ dysfunction status: unspecified Qualified Code(s): A41.9 - Sepsis, unspecified organism Plan to address problem: Urine culture grew Proteus sensitive to ceftriaxone. Patient may need wound debridement-surgery consulted Monitor vital signs closely (3) UTI (urinary tract infection) Current Visit: Yes Status: Acute Qualifiers: Urinary tract infection type: acute cystitis Hematuria presence: without hematuria Qualified Code(s): N30.00 - Acute cystitis without hematuria Plan to address problem: Continue antibiotics (4) Bilateral pulmonary embolism Current Visit: No Status: Chronic Plan to address problem: Had pulmonary embolism 7 months ago. As per pulmonology, patient needs indefinite anticoagulation Continue Eliquis 5 mg twice daily- currently on hold as she may need debridement (5) Sacral decubitus ulcer Current Visit: Yes Status: Acute Plan to address problem: This was present on admission May need debridement-surgery consulted Continue wound care (6) Uncontrolled diabetes mellitus Current Visit: No Status: Acute Plan to address problem: DM management (7) Dementia Current Visit: No Status: Chronic Plan to address problem: Continue donepezil (8) Moderate protein-calorie malnutrition Current Visit: Yes Status: Acute Plan to address problem: She is not eating well and is getting feeds through the NG tube. Discussed with - this problem has been chronic and he is open to getting a PEG placement to supplement her intake PEG placed 01/13. Now on tube feeds (9) DVT prophylaxis Current Visit: No Status: Acute Plan to address problem: Eliquis on hold for possible debridement History Interval history: Patient seen and examined at bedside this morning. PEG placed yesterday. She is not in any distress. Labs reviewed Hospitalist Physical - Constitutional Vitals: Temp Pulse Resp BP Pulse Ox 98.2 F 89 16 93/53 100 01/15/20 06:05 01/15/20 06:05 01/15/20 06:05 01/15/20 06:05 01/15/20 06:05 General appearance: Present: no acute distress - EENT Eyes: Present: PERRL - Neck Neck: Present: supple - Respiratory Respiratory: bilateral: CTA - Cardiovascular Heart Sounds: Present: S1 & S2 - Extremities Extremities: no ischemia - Abdominal General gastrointestinal: soft, non-tender, non-distended Results - Labs CBC & Chem 7: 01/14/20 11:01 01/15/20 05:35 Labs: Laboratory Last Values WBC 14.8 K/mm3 (4.5-11.0) H 01/14/20 11:01 RBC 3.20 M/mm3 (3.65-5.03) L 01/14/20 11:01 Hgb 9.5 gm/dl (10.1-14.3) L 01/14/20 11:01 Hct 28.0 % (30.3-42.9) L 01/14/20 11:01 MCV 88 fl (79-97) 01/14/20 11:01 MCH 30 pg (28-32) 01/14/20 11:01 MCHC 34 % (30-34) 01/14/20 11:01 RDW 14.0 % (13.2-15.2) 01/14/20 11:01 Plt Count 240 K/mm3 (140-440) 01/14/20 11:01 Lymph % (Auto) 7.2 % (13.4-35.0) L 01/10/20 10:10 Sebastian % (Auto) 2.1 % (0.0-7.3) 01/10/20 10:10 Eos % (Auto) 0.3 % (0.0-4.3) 01/10/20 10:10 Baso % (Auto) 0.4 % (0.0-1.8) 01/10/20 10:10 Lymph # 1.0 K/mm3 (1.2-5.4) L 01/10/20 10:10 Sebastian # 0.3 K/mm3 (0.0-0.8) 01/10/20 10:10 Eos # 0.0 K/mm3 (0.0-0.4) 01/10/20 10:10 Baso # 0.1 K/mm3 (0.0-0.1) 01/10/20 10:10 Add Manual Diff Complete 01/08/20 16:29 Total Counted 100 01/08/20 16:29 Seg Neutrophils % 90.0 % (40.0-70.0) H 01/10/20 10:10 Seg Neuts % (Manual) 85.0 % (40.0-70.0) H 01/08/20 16:29 Band Neutrophils % 0 % 01/08/20 16:29 Lymphocytes % (Manual) 11.0 % (13.4-35.0) L 01/08/20 16:29 Reactive Lymphs % (Man) 0 % 01/08/20 16:29 Monocytes % (Manual) 3.0 % (0.0-7.3) 01/08/20 16: Eosinophils % (Manual) 1.0 % (0.0-4.3) 01/08/20 16: Basophils % (Manual) 0 % (0.0-1.8) 01/08/20 16: Metamyelocytes % 0 % 01/08/20 16: Myelocytes % 0 % 01/08/20 16: Promyelocytes % 0 % 01/08/20 16: Blast Cells % 0 % 01/08/20 16: Nucleated RBC % Not Reportable 01/08/20 16: Seg Neutrophils # 12.0 K/mm3 (1.8-7.7) H 01/10/20 10:10 Seg Neutrophils # Man 11.5 K/mm3 (1.8-7.7) H 01/08/20 16:29 Band Neutrophils # 0.0 K/mm3 01/08/20 16: Lymphocytes # (Manual) 1.5 K/mm3 (1.2-5.4) 01/08/20 16:29 Abs React Lymphs (Man) 0.0 K/mm3 01/08/20 16:29 Monocytes # (Manual) 0.4 K/mm3 (0.0-0.8) 01/08/20 16: Eosinophils # (Manual) 0.1 K/mm3 (0.0-0.4) 01/08/20 16: Basophils # (Manual) 0.0 K/mm3 (0.0-0.1) 01/08/20 16: Metamyelocytes # 0.0 K/mm3 01/08/20 16: Myelocytes # 0.0 K/mm3 01/08/20 16: Promyelocytes # 0.0 K/mm3 01/08/20 16:29 Blast Cells # 0.0 K/mm3 01/08/20 16:29 WBC Morphology Not Reportable 01/08/20 16: Hypersegmented Neuts Not Reportable 01/08/20 16:29 Hyposegmented Neuts Not Reportable 01/08/20 16:29 Hypogranular Neuts Not Reportable 01/08/20 16:29 Smudge Cells Not Reportable 01/08/20 16:29 Toxic Granulation Not Reportable 01/08/20 16:29 Toxic Vacuolation Not Reportable 01/08/20 16:29 Dohle Bodies Not Reportable 01/08/20 16:29 Pelger-Huet Anomaly Not Reportable 01/08/20 16:29 Lata Rods Not Reportable 01/08/20 16:29 Platelet Estimate Not Reportable 01/08/20 16:29 Clumped Platelets Not Reportable 01/08/20 16:29 Plt Clumps, EDTA Not Reportable 01/08/20 16:29 Large Platelets Not Reportable 01/08/20 16:29 Giant Platelets Not Reportable 01/08/20 16:29 Platelet Satelliting Not Reportable 01/08/20 16:29 Plt Morphology Comment Not Reportable 01/08/20 16:29 RBC Morphology Normal 01/08/20 16:29 Dimorphic RBCs Not Reportable 01/08/20 16:29 Polychromasia Not Reportable 01/08/20 16:29 Hypochromasia Not Reportable 01/08/20 16:29 Poikilocytosis Not Reportable 01/08/20 16:29 Anisocytosis Not Reportable 01/08/20 16:29 Microcytosis Not Reportable 01/08/20 16:29 Macrocytosis Not Reportable 01/08/20 16:29 Spherocytes Not Reportable 01/08/20 16:29 Pappenheimer Bodies Not Reportable 01/08/20 16:29 Sickle Cells Not Reportable 01/08/20 16:29 Target Cells Not Reportable 01/08/20 16:29 Tear Drop Cells Not Reportable 01/08/20 16:29 Ovalocytes Not Reportable 01/08/20 16:29 Helmet Cells Not Reportable 01/08/20 16:29 [place] Bodies Not Reportable 01/08/20 16:29 [place] Rings Not Reportable 01/08/20 16:29 Leonidas Cells Not Reportable 01/08/20 16:29 Bite Cells Not Reportable 01/08/20 16:29 Crenated Cell Not Reportable 01/08/20 16:29 Elliptocytes Not Reportable 01/08/20 16:29 Acanthocytes (Spur) Not Reportable 01/08/20 16:29 Rouleaux Not Reportable 01/08/20 16:29 Hemoglobin C Crystals Not Reportable 01/08/20 16:29 Schistocytes Not Reportable 01/08/20 16:29 Malaria parasites Not Reportable 01/08/20 16:29 Gideon Bodies Not Reportable 01/08/20 16:29 Hem Pathologist Commnt No 01/08/20 16:29 PT 15.8 Sec. (12.2-14.9) H 01/14/20 11:01 INR 1.23 (0.87-1.13) H 01/14/20 11:01 APTT 34.4 Sec. (24.2-36.6) 01/14/20 11:01 Sodium 143 mmol/L (137-145) 01/15/20 05:35 Potassium 4.2 mmol/L (3.6-5.0) D 01/15/20 05:35 Chloride 106.9 mmol/L (98-107) 01/15/20 05:35 Carbon Dioxide 25 mmol/L (22-30) 01/15/20 05:35 Anion Gap 15 mmol/L 01/15/20 05:35 BUN 12 mg/dL (7-17) 01/15/20 05:35 Creatinine 0.5 mg/dL (0.6-1.2) L 01/15/20 05:35 Estimated GFR > 60 ml/min 01/15/20 05:35 BUN/Creatinine Ratio 24 % 01/15/20 05:35 Glucose 104 mg/dL (65-100) H 01/15/20 05:35 POC Glucose 106 (70-105) H 01/15/20 06:19 Hemoglobin A1c 5.3 % (4-6) 01/11/20 00:45 Lactic Acid 1.20 mmol/L (0.7-2.0) 01/09/20 05:52 Calcium 7.8 mg/dL (8.4-10.2) L 01/15/20 05:35 Magnesium 2.10 mg/dL (1.7-2.3) 01/10/20 05:23 Total Bilirubin 0.40 mg/dL (0.1-1.2) 01/08/20 16:29 AST 48 units/L (5-40) H 01/08/20 16:29 ALT 33 units/L (7-56) 01/08/20 16:29 Alkaline Phosphatase 44 units/L (35-129) 01/08/20 16:29 Total Protein 6.5 g/dL (6.3-8.2) 01/08/20 16:29 Albumin 2.5 g/dL (3.9-5) L 01/08/20 16:29 Albumin/Globulin Ratio 0.6 % 01/08/20 16:29 TSH 2.440 mlU/mL (0.270-4.200) 01/10/20 10:10 Urine Color Cordelia (Yellow) 01/08/20 Unknown Urine Turbidity Cloudy (Clear) 01/08/20 Unknown Urine pH 5.0 (5.0-7.0) 01/08/20 Unknown Ur Specific [place] 1.018 (1.003-1.030) 01/08/20 Unknown Urine Protein 30 mg/dl mg/dL (Negative) 01/08/20 Unknown Urine Glucose (UA) Neg mg/dL (Negative) 01/08/20 Unknown Urine Ketones Neg mg/dL (Negative) 01/08/20 Unknown Urine Blood Mod (Negative) 01/08/20 Unknown Urine Nitrite Neg (Negative) 01/08/20 Unknown Urine Bilirubin Neg (Negative) 01/08/20 Unknown Urine Urobilinogen < 2.0 mg/dL (<2.0) 01/08/20 Unknown Ur Leukocyte Esterase Sm (Negative) 01/08/20 Unknown Urine WBC (Auto) 11.0 /HPF (0.0-6.0) H 01/08/20 Unknown Urine RBC (Auto) 7.0 /HPF (0.0-6.0) 01/08/20 Unknown U Epithel Cells (Auto) < 1.0 /HPF (0-13.0) 01/08/20 Unknown Urine Bacteria (Auto) 1+ /HPF (Negative) 01/08/20 Unknown Urine Mucus 2+ /HPF 01/08/20 Unknown Urine Yeast (Budding) 1+ /HPF 01/08/20 Unknown Microbiology: Microbiology 01/12/20 13:22 Peripheral/Venous Blood Culture - Preliminary NO GROWTH AFTER 48 HOURS 01/12/20 13:22 Peripheral/Venous Blood Culture - Preliminary NO GROWTH AFTER 48 HOURS 01/08/20 16:40 Peripheral/Venous Blood Culture - Preliminary Proteus Mirabilis Mejía/IV: Voiding Method Diaper IV Catheter Type [Right Peripheral IV Forearm] Active Medications - Current Medications Current Medications: Generic Name Dose Route Start Last Admin Trade Name Freq PRN Reason Stop Dose Admin Acetaminophen 650 mg 01/08/20 23:14 01/11/20 22:39 Tylenol PO 650 mg Q4H PRN Administration Pain MILD(1-3)/Fever >100.5/GARCIA Lipase/Protease/Amylase 1 each 01/11/20 16:[address] 10,500 Unit FEEDTUBE PRN PRN For Clogged Feeding Tube Atorvastatin Calcium 10 mg 01/09/20 22:00 01/14/20 21:57 Atorvastatin PO 10 mg QHS BRO Administration Dextrose 0 ml 01/08/20 23:14 01/14/20 21:54 D50w (25gm) Syringe IV 20 ml Q30MIN PRN Administration Hypoglycemia Protocol Donepezil HCl 10 mg 01/09/20 22:00 01/14/20 21:58 Aricept PO 10 mg QHS BRO Administration Cefepime HCl 1 gm in 100 mls @ 200 mls/hr 01/14/20 14:00 01/15/20 05:14 Cefepime/Ns 1 Gm/100 Ml IV 200 mls/hr Q8HR BRO Administration Protocol Sodium Chloride 1,000 mls @ 50 mls/hr 01/14/20 12:00 01/15/20 11:17 Nacl 0.9% 1000 Ml IV 01/15/20 11:59 50 mls/hr DIRECT BRO Administration Vancomycin HCl 750 mg/ Sodium 265 mls @ 166.667 mls/hr 01/15/20 12:00 01/15/20 11:17 Chloride IV 166.667 mls/hr Q24H BRO Administration Magnesium Hydroxide 30 ml 01/08/20 23:14 Milk Of Magnesia PO Q4H PRN Constipation Megestrol Acetate 400 mg 01/12/20 11:00 01/15/20 11:17 Megestrol PO 400 mg QDAY BRO Administration Metoprolol Tartrate 25 mg 01/13/20 12:00 01/15/20 11:16 Metoprolol PO Not Given BID BRO Mirtazapine 15 mg 01/09/20 22:00 01/14/20 21:57 Remeron PO 15 mg QHS BRO Administration Ondansetron HCl 4 mg 01/08/20 23:14 Zofran IV Q8H PRN Nausea And Vomiting Simple Syrup 15 ml 01/11/20 16:25 Simple Syrup FEEDTUBE PRN PRN Hypoglycemia Simple Syrup 30 ml 01/11/20 16:25 Simple Syrup FEEDTUBE PRN PRN Hypoglycemia Sodium Bicarbonate 325 mg 01/11/20 16:25 Sodium Bicarbonate FEEDTUBE PRN PRN For Clogged Feeding Tube Sodium Chloride 10 ml 01/09/20 10:00 01/15/20 11:17 Sodium Chloride Flush Syringe 10 Ml IV 10 ml BID BRO Administration Sodium Chloride 10 ml 01/08/20 23:14 Sodium Chloride Flush Syringe 10 Ml IV PRN PRN LINE FLUSH Trazodone HCl 25 mg 01/09/20 22:00 01/14/20 21:58 Desyrel PO 25 mg QHS BRO Administration Nutrition/Malnutrition Assess - Dietary Evaluation Nutrition/Malnutrition Findings: Nutrition Notes Start: 01/09/20 12:13 Freq: Status: Active Protocol: Document 01/14/20 12:07 FLORINDA (Rec: 01/14/20 12:46 FLORINDA [id number]) Co-Sign 01/14/20 12:07 LM Nutrition Notes Initial or Follow up Reassessment Current Diagnosis Decubitus(Pressure Ulcer), Diabetes,Sepsis Other Pertinent Diagnosis UTI, dementia, PE, Sacral wound Current Diet NPO Labs/Tests K 3.2 Cr 0.4 Pertinent Medications Reviewed Height 5 ft 2 in Weight 44.7 kg [place] Body Weight (kg) 50.00 BMI 18.0 Weight Status Underweight Subjective/Other Information F/U for TF start/tolerance and hypernatremia. Pt tolerating NGT yesterday. NPO today for endoscopy, pending PEG placement. Pt will start bolus feeds before D/C, per CM. Hypernatremia resolved. Burn Absent Trauma Absent Difficulty In Chewing Current % PO Negligible Minimum of two criteria No Reduced Rn On Site Strength Measurably Reduced (severe) #2 Nutrition Diagnosis Inadequate oral intake Diagnosis Progress(for reassessment Continues documentation) #1 Nutrition Diagnosis Increased nutrient needs ( specify in comment below) Diagnosis Progress(for reassessment Continues documentation) Is patient on ventilator? No Is Patient Ambulatory and/or Out of Bed No REE-([facility]-confined to bed) 1110.480 Kcal/Kg value to use for calculation 35 Approximate Energy Requirements Using 1565 kcal/Kg Calculation Used for Recommendations Kcal/kg Additional Notes Protein needs are 53-67 g (1.2 -1.5 g/kg) Fluid needs are 1 ml/kcal Nutrition Intervention Change Diet Order: TF Nutrition Support: Jevity 1.2, 5 cans/day B - 1 can (237 ml) L - 2 cans (474 ml) D - 2 cans (474 ml) Flush 80 ml before and after each feeding Kcal 1,425 Protein (gm) 66 Fluid (mL) 955 Goal #1 Meet at least 80% of kcal and protein needs via TF Goal #2 TF tolerance Anticipated Discharge Needs: Jevity 1.2, 5 cans/day B - 1 can (237 ml) L - 2 cans (474 ml) D - 2 cans (474 ml) Flush 80 ml before and after each feeding Follow-Up By: 01/16/20 Additional Comments F/U for TF start/tolerance
--- NOTE | 2020-01-15 14:36 | Gastroenterology Progress Note ---
Assessment and Plan GI: s/p peg w/o obvious complications - ok to use peg as needed - will sign off, call if needed Subjective Date of service: 01/15/20 Interval history: - no GI complaints overnight. PEG tube used w/o issues Objective - Constitutional Vitals: Temp Pulse Resp BP Pulse Ox 96.9 F L 116 H 18 101/58 100 01/15/20 11:45 01/15/20 11:45 01/15/20 11:45 01/15/20 11:45 01/15/20 11:45 General appearance: no acute distress - EENT Eyes: PERRL - Respiratory Respiratory: bilateral: CTA - Cardiovascular Rhythm: regular Heart Sounds: Present: S1 & S2 - Gastrointestinal General gastrointestinal: Present: soft, non-tender, non-distended (peg site intact) - Labs CBC & Chem 7: 01/14/20 11:01 01/15/20 05:35 Labs: Laboratory Results - last 24 hr 01/14/20 01/14/20 01/14/20 16:33 17:21 22:32 Sodium Potassium Chloride Carbon Dioxide Anion Gap BUN Creatinine Estimated GFR BUN/Creatinine Ratio Glucose POC Glucose 58 L 89 188 H Calcium 01/15/20 01/15/20 01/15/20 05:35 06:19 11:59 Sodium 143 Potassium 4.2 D Chloride 106.9 Carbon Dioxide 25 Anion Gap 15 BUN 12 Creatinine 0.5 L Estimated GFR > 60 BUN/Creatinine Ratio 24 Glucose 104 H POC Glucose 106 H 102 Calcium 7.8 L
--- NOTE | 2020-01-15 14:49 | Event Note ---
Date: 01/15/20 [place] with again today. He has given consent for sacral wound debridement. Procedure, risk, benefits were discussed. All questions were answered. Patient has been added on to tomorrow's OR schedule.
--- NOTE | 2020-01-15 16:37 | Progress Note ---
Subjective Interval history: Patient was seen today for follow-up of multiple renal related issues around 9:45 in the morning resting comfortably in bed no acute distress Interdisciplinary notes that also reviewed Events of 24 hours vitals labs intake output medications were reviewed Past medical history: Reviewed Family history: Reviewed Social history: Reviewed Allergies: Reviewed Physical examination: Vitals: Reviewed HEENT: No pallor or icterus oral mucosa moist Neck: Supple no JVD no thyromegaly Chest: Bilateral clear to auscultation anteriorly Heart: Regular rate and rhythm S1-S2 heard no S3-S4 Abdomen: Soft nontender no voluntary guarding rigidity rebound Extremity: Dry skin less than 1+ peripheral edema Labs and x-rays: Reviewed from today Assessment and plan hypernatremia clinically appears to be doing well needs monitoring and follow- up's yesterday sodium was 142 Dehydration return follow Also has history of dementia which makes her prone to dehydration Hypokalemia please monitor and follow Overall stable from renal standpoint will sign off please call if needed Objective - Vital Signs Vital signs: Vital Signs - 12hr 01/15/20 01/15/20 06:05 11:45 Temperature 98.2 F 96.9 F L Pulse Rate 89 116 H Respiratory 16 18 Rate Blood Pressure 93/53 101/58 O2 Sat by Pulse 100 100 Oximetry - Lab 01/14/20 11:01 01/15/20 05:35 Most recent lab results Calcium 7.8 mg/dL (8.4-10.2) L 01/15/20 05:35 Magnesium 2.10 mg/dL (1.7-2.3) 01/10/20 05:23 Medications & Allergies - Medications Allergies/Adverse Reactions: Allergies No Known Allergies Allergy (Unverified 06/23/14 09:54) Home Medications: Home Medications Medication Instructions Recorded Confirmed Last Taken Type AtorvaSTATin 10 mg PO QHS 05/06/19 05/06/19 05/05/19 History Donepezil HCl [Donepezil HCl Odt] 10 mg PO QHS 05/06/19 05/06/19 Unknown History LORazepam [Lorazepam] 0.5 mg PO BID 05/06/19 05/06/19 Unknown History Melatonin [Melatonin 10MG CAP] 10 mg PO QHS 05/06/19 05/06/19 05/05/19 History Metformin HCl [Metformin HCl ER] 500 mg PO Q2D 05/06/19 05/06/19 05/05/19 History Apixaban [Eliquis] 5 mg PO BID 30 Days #60 tablet 05/08/19 Unknown Rx Apixaban [Eliquis] 10 mg PO BID 7 Days #14 tablet 05/08/19 Unknown Rx Active Medications: Generic Name Dose Route Start Last Admin Trade Name Freq PRN Reason Stop Dose Admin Acetaminophen 650 mg 01/08/20 23:14 01/11/20 22:39 Tylenol PO 650 mg Q4H PRN Administration Pain MILD(1-3)/Fever >100.5/GARCIA Lipase/Protease/Amylase 1 each 01/11/20 16:[address] 10,500 Unit FEEDTUBE PRN PRN For Clogged Feeding Tube Atorvastatin Calcium 10 mg 01/09/20 22:00 01/14/20 21:57 Atorvastatin PO 10 mg QHS BRO Administration Dextrose 0 ml 01/08/20 23:14 01/14/20 21:54 D50w (25gm) Syringe IV 20 ml Q30MIN PRN Administration Hypoglycemia Protocol Donepezil HCl 10 mg 01/09/20 22:00 01/14/20 21:58 Aricept PO 10 mg QHS BRO Administration Cefepime HCl 1 gm in 100 mls @ 200 mls/hr 01/14/20 14:00 01/15/20 14:29 Cefepime/Ns 1 Gm/100 Ml IV 200 mls/hr Q8HR BRO Administration Protocol Vancomycin HCl 750 mg/ Sodium 265 mls @ 166.667 mls/hr 01/15/20 12:00 01/15/20 11:17 Chloride IV 166.667 mls/hr Q24H BRO Administration Magnesium Hydroxide 30 ml 01/08/20 23:14 Milk Of Magnesia PO Q4H PRN Constipation Megestrol Acetate 400 mg 01/12/20 11:00 01/15/20 11:17 Megestrol PO 400 mg QDAY BRO Administration Metoprolol Tartrate 25 mg 01/13/20 12:00 01/15/20 11:16 Metoprolol PO Not Given BID BRO Mirtazapine 15 mg 01/09/20 22:00 01/14/20 21:57 Remeron PO 15 mg QHS BRO Administration Ondansetron HCl 4 mg 01/08/20 23:14 Zofran IV Q8H PRN Nausea And Vomiting Simple Syrup 15 ml 01/11/20 16:25 Simple Syrup FEEDTUBE PRN PRN Hypoglycemia Simple Syrup 30 ml 01/11/20 16:25 Simple Syrup FEEDTUBE PRN PRN Hypoglycemia Sodium Bicarbonate 325 mg 01/11/20 16:25 Sodium Bicarbonate FEEDTUBE PRN PRN For Clogged Feeding Tube Sodium Chloride 10 ml 01/09/20 10:00 01/15/20 11:17 Sodium Chloride Flush Syringe 10 Ml IV 10 ml BID BRO Administration Sodium Chloride 10 ml 01/08/20 23:14 Sodium Chloride Flush Syringe 10 Ml IV PRN PRN LINE FLUSH Trazodone HCl 25 mg 01/09/20 22:00 01/14/20 21:58 Desyrel PO 25 mg QHS BRO Administration
[2020-01-16] MEDS: traZODone 50 MG TAB PO SCH ×2 (00:41→22:37)
[2020-01-16] MEDS: DONEPEZIL 10 MG TAB PO SCH ×2 (00:42→22:07)
[2020-01-16] MEDS: MIRTAZAPINE 15 MG TAB PO SCH ×2 (00:42→22:07)
[2020-01-16] MEDS: CEFEPIME/NS 1 GM/100 ML 1 GM/100 ML BAG IV SCH ×4 (00:44→22:07)
[2020-01-16] MEDS: METOPROLOL TARTRATE 25 MG TAB PO SCH ×2 (00:44→13:58)
[2020-01-16 06:27] LABS: Basophils % (Auto) 0.3 % (0.0-1.8); Eosinophils # (Auto) 0.1 K/mm3 (0.0-0.4); Eosinophils % (Auto) 0.4 % (0.0-4.3); Lymphocytes # (Auto) 1.3 K/mm3 (1.2-5.4); Lymphocytes % (Auto) 9.1 % (13.4-35.0); Mean Corpuscular HGB Conc 34 % (30-34); Mean Corpuscular Volume 89 fl (79-97); Monocytes # (Auto) 0.4 K/mm3 (0.0-0.8); Monocytes % (Auto) 2.9 % (0.0-7.3); Platelet Count 281 K/mm3 (140-440); Red Blood Count 3.04 M/mm3 (3.65-5.03); Red Cell Distribution Width 13.8 % (13.2-15.2)
[2020-01-16] MEDS ORDERED: SODIUM CHLORIDE 0.9% 1000 ML 500 ML IV ONE (07:30)
[2020-01-16] MEDS ORDERED: HYDROmorphone 1 MG/1 ML INJ IV PRN ×2 (09:15)
[2020-01-16] MEDS ORDERED: ONDANSETRON 4 MG/2 ML INJ IV PRN (09:15)
--- NOTE | 2020-01-16 09:16 | Anesthesia Day of Surgery ---
Anesthesia Day of Surgery - Day of Surgery Patient Examined: Yes Patient H&P Reviewed: Yes Patient is NPO: Yes
--- NOTE | 2020-01-16 09:18 | Anesthesia Consultation ---
Anesthesia Consult and Med Hx Date of service: 01/16/20 - Airway Intubation Access Assessment: Good (Uncooperative with airway exam) - Pre-Operative Health Status ASA Pre-Surgery Classification: ASA3 Proposed Anesthetic Plan: MAC (MAC; GA if needed) - Pulmonary Hx Asthma: No COPD: No Hx Pneumonia: No - Central Nervous System Hx Psychiatric Problems: Yes (Dementia) - Endocrine Hx End Stage Renal Disease: No Hx Non-Insulin Dependent Diabetes: Yes - Additional Comments Anesthesia Medical History Comments: Was here [id number]. Impression. Hypernatremia. Dehydration. Dementia. Hypokalemia. Diabetes
[2020-01-16] MEDS ORDERED: LIDOCAINE MPF (2%) 20 MG/1 ML VIAL 5 ML ONE (09:42)
[2020-01-16] MEDS ORDERED: ROCURONIUM 50 MG/5 ML INJ IV ONE (09:42)
[2020-01-16] MEDS ORDERED: fentaNYL 100 MCG/2 ML INJ ONE (09:42)
[2020-01-16] MEDS ORDERED: propofoL 200 MG/20 ML VIAL IV ONE (09:42)
[2020-01-16] MEDS ORDERED: LACTATED RINGERS 1,000 ML ONE ×2 (09:49→11:17)
[2020-01-16] MEDS: SODIUM CHLORIDE 0.9% 1000 ML 1,000 ML IV SCH (09:50)
[2020-01-16] MEDS ORDERED: NEOSTIGMINE 10MG/10 ML INJ MDV ONE (10:00)
[2020-01-16] MEDS ORDERED: GLYCOPYRROLATE 0.4 MG/2 ML INJ ONE (10:00)
[2020-01-16] MEDS ORDERED: ALBUTEROL 8.5 GM MDI INHALATION IH ONE (10:22)
[2020-01-16] MEDS ORDERED: EPINEPHrine 1 MG/10 ML SYRINGE ONE (10:22)
[2020-01-16] MEDS ORDERED: ALBUMIN HUMAN 25% (25 GM/100 ML) INJ IV ONE (11:00)
--- NOTE | 2020-01-16 11:01 | Progress Note ---
Assessment and Plan Assessment and plan: Patient is a 69-year-old -[place] female with known history of dementia, diabetes mellitus and pulmonary embolism was brought into the emergency room for decreased responsiveness, lethargy and hypotension. According to home health nurse patient has become less active and blood pressure was said to be low. She was brought to the emergency room for evaluation. Further history cannot be obtained from patient. Upon arrival in the emergency room patient had a low-grade fever. Work-up in the emergency room reveals elevated white blood cell count of 13.5, elevated BUN and creatinine 30 and 1.1 respectively. Found to be dehydrated and hypernatremic. Urinalysis shows UTI. Patient subsequently started on IV fluid and empiric IV antibiotics admitted for further evaluation. 01/08. Patient seen and examined at bedside this month. Patient not talking much this morning. Discussed case with patient spouse [patient usually does not talk much due to possible underlying dementia]. Started patient on her home medications today. Sodium slightly elevated from yesterday-162. Switch to hyp otonic solution after resuscitation. Monitor BMP 01/09. More awake today. Sodium is improving. Has tachycardia today. Received a dose of metoprolol and is on telemetry. No arrhythmias noted. Has no congestion on chest xray. Will continue IV hydration for now. She needs assistance with meals due to advanced dementia. 01/10. Sodium is improving, will speak to family about diet and possible NGT and medication, Her dementia may be the prohibiting factor. Anticipate discharge in 24 to 48 hrs. ?IF SHE IS BEDBOUND. Continue Antibiotics. 01/11. Patient seen and examined at bedside this morning. She is not eating. Discussed with patients - plan for PEG placement. GI consulted. Blood culture from 01/07 grew GN rods. Repeat Blood culture sent. She is on ceftriaxone. Her sodium level is improving gradually. 01/12. Plan for tube placement. GI on board. 01/13. Patient had temperature 101 overnight. Patient has been on appropriate antibiotics for UTI. Urine culture has been reviewed. This point need to evaluate for other etiology of fever. Surgery consulted for evaluation for need for wound debridement. Plan for PEG tube placement today. 01/14. PEG tube placed. Surgery and ID on board. Plan for wound debridement as per surgery 01/15. Plan for debridement today as per surgery. - Patient Problems (1) Hypernatremia Current Visit: Yes Status: Resolved Plan to address problem: Resolved (2) Sepsis Current Visit: Yes Status: Acute Qualifiers: Sepsis type: sepsis due to unspecified organism Sepsis acute organ dysfunction status: unspecified Qualified Code(s): A41.9 - Sepsis, unspecified organism Plan to address problem: Continue antibiotics Monitor vital signs closely (3) UTI (urinary tract infection) Current Visit: Yes Status: Acute Qualifiers: Urinary tract infection type: acute cystitis Hematuria presence: without hematuria Qualified Code(s): N30.00 - Acute cystitis without hematuria Plan to address problem: Continue antibiotics (4) Bilateral pulmonary embolism Current Visit: No Status: Chronic Plan to address problem: Had pulmonary embolism 7 months ago. As per pulmonology, patient needs indefinite anticoagulation Continue Eliquis 5 mg twice daily- currently on hold as she may need debridement (5) Sacral decubitus ulcer Current Visit: Yes Status: Acute Plan to address problem: This was present on admission May need debridement-surgery consulted Continue wound care (6) Uncontrolled diabetes mellitus Current Visit: No Status: Acute Plan to address problem: DM management (7) Dementia Current Visit: No Status: Chronic Plan to address problem: Continue donepezil (8) Moderate protein-calorie malnutrition Current Visit: Yes Status: Acute Plan to address problem: She is not eating well and is getting feeds through the NG tube. Discussed with - this problem has been chronic and he is open to getting a PEG placement to supplement her intake PEG placed 01/13. Now on tube feeds (9) DVT prophylaxis Current Visit: No Status: Acute Plan to address problem: Eliquis on hold for possible debridement History Interval history: Patient seen and examined at bedside this morning. PEG placed yesterday. She is not in any distress. Labs reviewed Hospitalist Physical - Constitutional Vitals: Temp Pulse Resp BP Pulse Ox 98.5 F 129 H 18 94/40 100 01/16/20 09:35 01/16/20 09:35 01/16/20 09:35 01/16/20 09:35 01/16/20 10:50 General appearance: Present: no acute distress - EENT Eyes: Present: PERRL - Neck Neck: Present: supple - Respiratory Respiratory: bilateral: CTA - Cardiovascular Heart Sounds: Present: S1 & S2 - Extremities Extremities: no ischemia - Abdominal General gastrointestinal: soft, non-tender, non-distended - Neurologic Neurologic: CNII-XII intact Results - Labs CBC & Chem 7: 01/16/20 05:59 01/15/20 05:35 Labs: Laboratory Last Values WBC 14.7 K/mm3 (4.5-11.0) H 01/16/20 05:59 RBC 3.04 M/mm3 (3.65-5.03) L 01/16/20 05:59 Hgb 9.0 gm/dl (10.1-14.3) L 01/16/20 05:59 Hct 27.0 % (30.3-42.9) L 01/16/20 05:59 MCV 89 fl (79-97) 01/16/20 05:59 MCH 30 pg (28-32) 01/16/20 05:59 MCHC 34 % (30-34) 01/16/20 05:59 RDW 13.8 % (13.2-15.2) 01/16/20 05:59 Plt Count 281 K/mm3 (140-440) 01/16/20 05:59 Lymph % (Auto) 9.1 % (13.4-35.0) L 01/16/20 05:59 [place] % (Auto) 2.9 % (0.0-7.3) 01/16/20 05:59 Eos % (Auto) 0.4 % (0.0-4.3) 01/16/20 05:59 Baso % (Auto) 0.3 % (0.0-1.8) 01/16/20 05:59 Lymph # 1.3 K/mm3 (1.2-5.4) 01/16/20 05:59 [place] # 0.4 K/mm3 (0.0-0.8) 01/16/20 05:59 Eos # 0.1 K/mm3 (0.0-0.4) 01/16/20 05:59 Baso # 0.0 K/mm3 (0.0-0.1) 01/16/20 05:59 Add Manual Diff Complete 01/08/20 16:29 Total Counted 100 01/08/20 16:29 Seg Neutrophils % 87.3 % (40.0-70.0) H 01/16/20 05:59 Seg Neuts % (Manual) 85.0 % (40.0-70.0) H 01/08/20 16:29 Band Neutrophils % 0 % 01/08/20 16:29 Lymphocytes % (Manual) 11.0 % (13.4-35.0) L 01/08/20 16:29 Reactive Lymphs % (Man) 0 % 01/08/20 16:29 Monocytes % (Manual) 3.0 % (0.0-7.3) 01/08/20 16: Eosinophils % (Manual) 1.0 % (0.0-4.3) 01/08/20 16: Basophils % (Manual) 0 % (0.0-1.8) 01/08/20 16: Metamyelocytes % 0 % 01/08/20 16: Myelocytes % 0 % 01/08/20 16: Promyelocytes % 0 % 01/08/20 16: Blast Cells % 0 % 01/08/20 16: Nucleated RBC % Not Reportable 01/08/20 16:29 Seg Neutrophils # 12.9 K/mm3 (1.8-7.7) H 01/16/20 05:59 Seg Neutrophils # Man 11.5 K/mm3 (1.8-7.7) H 01/08/20 16:29 Band Neutrophils # 0.0 K/mm3 01/08/20 16: Lymphocytes # (Manual) 1.5 K/mm3 (1.2-5.4) 01/08/20 16:29 Abs React Lymphs (Man) 0.0 K/mm3 01/08/20 16: Monocytes # (Manual) 0.4 K/mm3 (0.0-0.8) 01/08/20 16: Eosinophils # (Manual) 0.1 K/mm3 (0.0-0.4) 01/08/20 16:29 Basophils # (Manual) 0.0 K/mm3 (0.0-0.1) 01/08/20 16: Metamyelocytes # 0.0 K/mm3 01/08/20 16:29 Myelocytes # 0.0 K/mm3 01/08/20 16:29 Promyelocytes # 0.0 K/mm3 01/08/20 16:29 Blast Cells # 0.0 K/mm3 01/08/20 16:29 WBC Morphology Not Reportable 01/08/20 16:29 Hypersegmented Neuts Not Reportable 01/08/20 16:29 Hyposegmented Neuts Not Reportable 01/08/20 16:29 Hypogranular Neuts Not Reportable 01/08/20 16:29 Smudge Cells Not Reportable 01/08/20 16:29 Toxic Granulation Not Reportable 01/08/20 16:29 Toxic Vacuolation Not Reportable 01/08/20 16:29 Dohle Bodies Not Reportable 01/08/20 16:29 Pelger-Huet Anomaly Not Reportable 01/08/20 16:29 Lata Rods Not Reportable 01/08/20 16:29 Platelet Estimate Not Reportable 01/08/20 16:29 Clumped Platelets Not Reportable 01/08/20 16:29 Plt Clumps, EDTA Not Reportable 01/08/20 16:29 Large Platelets Not Reportable 01/08/20 16:29 Giant Platelets Not Reportable 01/08/20 16:29 Platelet Satelliting Not Reportable 01/08/20 16:29 Plt Morphology Comment Not Reportable 01/08/20 16:29 RBC Morphology Normal 01/08/20 16:29 Dimorphic RBCs Not Reportable 01/08/20 16:29 Polychromasia Not Reportable 01/08/20 16:29 Hypochromasia Not Reportable 01/08/20 16:29 Poikilocytosis Not Reportable 01/08/20 16:29 Anisocytosis Not Reportable 01/08/20 16:29 Microcytosis Not Reportable 01/08/20 16:29 Macrocytosis Not Reportable 01/08/20 16:29 Spherocytes Not Reportable 01/08/20 16:29 Pappenheimer Bodies Not Reportable 01/08/20 16:29 Sickle Cells Not Reportable 01/08/20 16:29 Target Cells Not Reportable 01/08/20 16:29 Tear Drop Cells Not Reportable 01/08/20 16:29 Ovalocytes Not Reportable 01/08/20 16:29 Helmet Cells Not Reportable 01/08/20 16:29 Lombardi-[place] Bodies Not Reportable 01/08/20 16:29 [place] Rings Not Reportable 01/08/20 16:29 Leonidas Cells Not Reportable 01/08/20 16:29 Bite Cells Not Reportable 01/08/20 16:29 Crenated Cell Not Reportable 01/08/20 16:29 Elliptocytes Not Reportable 01/08/20 16:29 Acanthocytes (Spur) Not Reportable 01/08/20 16:29 Rouleaux Not Reportable 01/08/20 16:29 Hemoglobin C Crystals Not Reportable 01/08/20 16:29 Schistocytes Not Reportable 01/08/20 16:29 Malaria parasites Not Reportable 01/08/20 16:29 Gideon Bodies Not Reportable 01/08/20 16:29 Hem Pathologist Commnt No 01/08/20 16:29 PT 15.8 Sec. (12.2-14.9) H 01/14/20 11:01 INR 1.23 (0.87-1.13) H 01/14/20 11:01 APTT 34.4 Sec. (24.2-36.6) 01/14/20 11:01 Sodium 143 mmol/L (137-145) 01/15/20 05:35 Potassium 4.2 mmol/L (3.6-5.0) D 01/15/20 05:35 Chloride 106.9 mmol/L (98-107) 01/15/20 05:35 Carbon Dioxide 25 mmol/L (22-30) 01/15/20 05:35 Anion Gap 15 mmol/L 01/15/20 05:35 BUN 12 mg/dL (7-17) 01/15/20 05:35 Creatinine 0.5 mg/dL (0.6-1.2) L 01/15/20 05:35 Estimated GFR > 60 ml/min 01/15/20 05:35 BUN/Creatinine Ratio 24 % 01/15/20 05:35 Glucose 104 mg/dL (65-100) H 01/15/20 05:35 POC Glucose 122 (70-105) H 01/16/20 09:52 Hemoglobin A1c 5.3 % (4-6) 01/11/20 00:45 Lactic Acid 1.20 mmol/L (0.7-2.0) 01/09/20 05:52 Calcium 7.8 mg/dL (8.4-10.2) L 01/15/20 05:35 Magnesium 2.10 mg/dL (1.7-2.3) 01/10/20 05:23 Total Bilirubin 0.40 mg/dL (0.1-1.2) 01/08/20 16:29 AST 48 units/L (5-40) H 01/08/20 16:29 ALT 33 units/L (7-56) 01/08/20 16:29 Alkaline Phosphatase 44 units/L (35-129) 01/08/20 16:29 Total Protein 6.5 g/dL (6.3-8.2) 01/08/20 16:29 Albumin 2.5 g/dL (3.9-5) L 01/08/20 16:29 Albumin/Globulin Ratio 0.6 % 01/08/20 16:29 TSH 2.440 mlU/mL (0.270-4.200) 01/10/20 10:10 Urine Color Cordelia (Yellow) 01/08/20 Unknown Urine Turbidity Cloudy (Clear) 01/08/20 Unknown Urine pH 5.0 (5.0-7.0) 01/08/20 Unknown Ur Specific [place] 1.018 (1.003-1.030) 01/08/20 Unknown Urine Protein 30 mg/dl mg/dL (Negative) 01/08/20 Unknown Urine Glucose (UA) Neg mg/dL (Negative) 01/08/20 Unknown Urine Ketones Neg mg/dL (Negative) 01/08/20 Unknown Urine Blood Mod (Negative) 01/08/20 Unknown Urine Nitrite Neg (Negative) 01/08/20 Unknown Urine Bilirubin Neg (Negative) 01/08/20 Unknown Urine Urobilinogen < 2.0 mg/dL (<2.0) 01/08/20 Unknown Ur Leukocyte Esterase Sm (Negative) 01/08/20 Unknown Urine WBC (Auto) 11.0 /HPF (0.0-6.0) H 01/08/20 Unknown Urine RBC (Auto) 7.0 /HPF (0.0-6.0) 01/08/20 Unknown U Epithel Cells (Auto) < 1.0 /HPF (0-13.0) 01/08/20 Unknown Urine Bacteria (Auto) 1+ /HPF (Negative) 01/08/20 Unknown Urine Mucus 2+ /HPF 01/08/20 Unknown Urine Yeast (Budding) 1+ /HPF 01/08/20 Unknown Microbiology: Microbiology 01/12/20 13:22 Peripheral/Venous Blood Culture - Preliminary NO GROWTH AFTER 72 HOURS 01/12/20 13:22 Peripheral/Venous Blood Culture - Preliminary NO GROWTH AFTER 72 HOURS Mejía/IV: Voiding Method Diaper IV Catheter Type [Right Peripheral IV Forearm] Active Medications - Current Medications Current Medications: Generic Name Dose Route Start Last Admin Trade Name Freq PRN Reason Stop Dose Admin Acetaminophen 650 mg 01/08/20 23:14 01/11/20 22:39 Tylenol PO 650 mg Q4H PRN Administration Pain MILD(1-3)/Fever >100.5/GARCIA Lipase/Protease/Amylase 1 each 01/11/20 16:[address] 10,500 Unit FEEDTUBE PRN PRN For Clogged Feeding Tube Atorvastatin Calcium 10 mg 01/09/20 22:00 01/16/20 00:42 Atorvastatin PO 10 mg QHS BRO Administration Dextrose 0 ml 01/08/20 23:14 01/14/20 21:54 D50w (25gm) Syringe IV 20 ml Q30MIN PRN Administration Hypoglycemia Protocol Donepezil HCl 10 mg 01/09/20 22:00 01/16/20 00:42 Aricept PO 10 mg QHS BRO Administration Hydromorphone HCl 0.25 mg 01/16/20 09:15 Dilaudid IV Q10MIN PRN Pain, Moderate (4-6) Hydromorphone HCl 0.5 mg 01/16/20 09:15 Dilaudid IV Q10MIN PRN Pain , Severe (7-10) Cefepime HCl 1 gm in 100 mls @ 200 mls/hr 01/14/20 14:00 01/16/20 06:16 Cefepime/Ns 1 Gm/100 Ml IV 200 mls/hr Q8HR BRO Administration Protocol Vancomycin HCl 750 mg/ Sodium 265 mls @ 166.667 mls/hr 01/15/20 12:00 01/15/20 11:17 Chloride IV 166.667 mls/hr Q24H BRO Administration Lactated Ringer's 1,000 mls @ 125 mls/hr 01/16/20 10:00 Lactated Ringers IV DIRECT BRO Magnesium Hydroxide 30 ml 01/08/20 23:14 Milk Of Magnesia PO Q4H PRN Constipation Megestrol Acetate 400 mg 01/12/20 11:00 01/15/20 11:17 Megestrol PO 400 mg QDAY BRO Administration Metoprolol Tartrate 25 mg 01/13/20 12:00 01/16/20 00:44 Metoprolol PO Not Given BID BRO Mirtazapine 15 mg 01/09/20 22:00 01/16/20 00:42 Remeron PO 15 mg QHS BRO Administration Ondansetron HCl 4 mg 01/08/20 23:14 Zofran IV Q8H PRN Nausea And Vomiting Ondansetron HCl 4 mg 01/16/20 09:15 Zofran IV ONCE PRN Nausea And Vomiting Simple Syrup 15 ml 01/11/20 16:25 Simple Syrup FEEDTUBE PRN PRN Hypoglycemia Simple Syrup 30 ml 01/11/20 16:25 Simple Syrup FEEDTUBE PRN PRN Hypoglycemia Sodium Bicarbonate 325 mg 01/11/20 16:25 Sodium Bicarbonate FEEDTUBE PRN PRN For Clogged Feeding Tube Sodium Chloride 10 ml 01/09/20 10:00 01/16/20 00:41 Sodium Chloride Flush Syringe 10 Ml IV 10 ml BID BRO Administration Sodium Chloride 10 ml 01/08/20 23:14 Sodium Chloride Flush Syringe 10 Ml IV PRN PRN LINE FLUSH Trazodone HCl 25 mg 01/09/20 22:00 01/16/20 00:41 Desyrel PO 25 mg QHS BRO Administration Nutrition/Malnutrition Assess - Dietary Evaluation Nutrition/Malnutrition Findings: Nutrition Notes Start: 01/09/20 12:13 Freq: Status: Active Protocol: Document 01/15/20 12:40 [email or web address] (Rec: 01/15/20 12:47 [email or web address]) Co-Sign 01/15/20 12:40 LM Nutrition Notes Initial or Follow up Brief Note Current Diagnosis Decubitus(Pressure Ulcer), Diabetes,Sepsis Other Pertinent Diagnosis UTI, dementia, PE, Sacral wound Current Diet NPO Labs/Tests Reviewed Pertinent Medications Reviewed Height 5 ft 2 in Weight 44.7 kg [place] Body Weight (kg) 50.00 BMI 18.0 Weight Status Underweight Subjective/Other Information Consult for post PEG placement . Burn Absent Trauma Absent Difficulty In Chewing Current % PO Negligible Minimum of two criteria No Reduced College Tutor Strength Measurably Reduced (severe) #2 Nutrition Diagnosis Inadequate oral intake Diagnosis Progress(for reassessment Continues documentation) #1 Nutrition Diagnosis Increased nutrient needs ( specify in comment below) As Evidenced by Signs and Symptoms pressure ulcer in sacrum and heel Diagnosis Progress(for reassessment Continues documentation) Is patient on ventilator? No Is Patient Ambulatory and/or Out of Bed No REE-([place]-confined to bed) 1110.480 Kcal/Kg value to use for calculation 35 Approximate Energy Requirements Using 1565 kcal/Kg Calculation Used for Recommendations Kcal/kg Additional Notes Protein needs are 53-67 g (1.2 -1.5 g/kg) Fluid needs are 1 ml/kcal Nutrition Intervention Change Diet Order: TF Nutrition Support: Jevity 1.2, 5 cans/day B - 1 can (237 ml) L - 2 cans (474 ml) D - 2 cans (474 ml) Flush 80 ml before and after each feeding Kcal 1,425 Protein (gm) 66 Fluid (mL) 955 Goal #1 Meet at least 80% of kcal and protein needs via TF Goal #2 TF tolerance Anticipated Discharge Needs: Jevity 1.2, 5 cans/day B - 1 can (237 ml) L - 2 cans (474 ml) D - 2 cans (474 ml) Flush 80 ml before and after each feeding Follow-Up By: 01/19/20 Additional Comments F/U for TF start/tolerance
[2020-01-16] MEDS ORDERED: PHENYLEPHRINE/NS 1,000 MCG/10 ML SYRINGE (OR USE) IV ONE (11:05)
--- NOTE | 2020-01-16 11:05 | Post Operative Note ---
Date of procedure: 01/16/20 (dictation:[id number]) Pre-op diagnosis: sacral decubitus wound Post-op diagnosis: same Findings: extensive necrosis of soft tissue down to sacral fascia. Procedure: Sacral wound debridement Wound vac placement min EBL Anesthesia: JUANYA Surgeon: ARTURO JUAREZ Estimated blood loss: minimal Pathology: list (culture swabs, sacral skin tissue) Specimen disposition: to lab Condition: stable Disposition: PACU
[2020-01-16] MEDS ORDERED: SUGAMMADEX SODIUM 200 MG/2 ML VIAL IV ONE (11:08)
--- NOTE | 2020-01-16 12:50 | XRay Report ---
CHEST 1 VIEW 01/16/2020 12:30 PM INDICATION / CLINICAL INFORMATION: Hypoxia. COMPARISON: 01/10/20 FINDINGS: SUPPORT DEVICES: Gastrostomy tube projects over the stomach. HEART / MEDIASTINUM: Stable. LUNGS / PLEURA: Elevated left hemidiaphragm is unchanged. Interval development of passive atelectasis of the left lung base. New small to moderate-sized left apical pneumothorax with small pleural effus ion. ADDITIONAL FINDINGS: No significant additional findings. IMPRESSION: 1. New, small to moderate-sized left hydropneumothorax. IMPORTANT FINDING: Time of Communication (SYSTEMS DESIGN ENGINEER/CDT): 11:45 AM Licensed Practitioner Receiving Report: Nurse Parr on floor 3A Signer Name: Kelly Linder MD Signed: 01/16/2020 12:45 PM Workstation Name: [id number]
[2020-01-16] MEDS ORDERED: METOPROLOL TARTRATE 5 MG/5 ML INJ IV NR (13:00)
[2020-01-16] MEDS: MEGESTROL 400 MG/10 ML ORAL LIQD PO SCH (13:57)
--- NOTE | 2020-01-16 14:11 | Post Anesthesia Evaluation ---
- Post Anesthesia Evaluation Patient Participated: Yes Airway Patent: Yes Stable Respiratory Function: Yes Nausea/Vomiting: No Temp > 96.8F: Yes Pain Manageable: Yes Adequeate Hydration: Yes Anesthesia Complications: No Block Receding Appropriately: Not Applicable Patient on Ventilator: No
[2020-01-16] MEDS ORDERED: LIDOCAINE 1%/EPINEPHRINE 1:100,000 VIAL (20 ML) INFILTRATI ONE ×2 (15:17→15:48)
--- NOTE | 2020-01-16 15:27 | Operative Report ---
PREOPERATIVE DIAGNOSIS: Sacral decubitus wound. POSTOPERATIVE DIAGNOSIS: Sacral decubitus wound. PROCEDURES: 1. Sacral wound debridement. 2. Wound VAC placement. ATTENDING PHYSICIAN: Luigi Vo MD ANESTHESIA: General. ESTIMATED BLOOD LOSS: Minimal. FINDINGS: Extensive necrosis of the skin, subcutaneous tissue, and portions of the underlying fascia. The wound went down all the way to the sacral fascia. There was no involvement of the anus. SPECIMENS: Two sets of culture swabs and sacral soft tissue. COMPLICATIONS: None. DISPOSITION: Stable, transferred to Recovery. INDICATIONS: This is a 69-year-old female who is a intermediate resident and presented with decreased blood pressure and unresponsiveness. General Surgery was asked to consult when she was found to have a significant sacral wound. I discussed the situation with her . I told him the chances of healing this wound are credibly low as the patient has multiple areas of pressure wounds. She requires frequent turning to minimize any prolonged pressure one area. Unless this can be done on a regular basis, the wounds will not heal. The thought about his decision and then we spoke the following day, he wished for us to proceed despite the low chance of success and healing the wound. Procedure, risks and benefits were discussed. All questions were answered. Consent was obtained. OPERATIVE NOTE: The patient was brought to the operating room. She was intubated and placed under general anesthesia on her transport bed. She was subsequently placed in prone position. SCDs were in place. The patient was already on antibiotics. Sterile prep and drape was performed. Time-out was done. I began by excising the skin and some of the subcutaneous tissue with electrocautery. Once this was done, I excised sharply some of the necrotic subcutaneous tissue. The wound went all the way down to the sacral fascia. Some of the fascia was involved as well. We then took culture swabs of the fluid in that cavity. We subsequently did a pulse lavage of the entire area, it looked much better after we were done. Hemostasis was achieved with electrocautery. We then applied the wound VAC. We had a good seal. The patient tolerated the procedure well. There were no complications. All counts were correct at the end of the case. I spoke with the and gave him a report at the end of the case, he was appreciative. JOB# [id number] MAXIMILIANO/WILFREDO
--- NOTE | 2020-01-16 15:37 | Event Note ---
Date: 01/16/[address] Enriquez about new hydropneumothorax. They have requested a chest tube placement. I spoke with the about the situation. He wishes to proceed with chest tube placement. Procedure, risks, benefits discussed. We discussed that there is a good chance that she will do poorly and require intubation. He understood. I asked him to discuss with family about code status and how aggressive they want to be if she continues to decline.
--- NOTE | 2020-01-16 16:35 | Procedure Note ---
Date of procedure: 01/16/20 Pre-op diagnosis: left hydropneumothorax Post-op diagnosis: same Procedure: Left chest tube placement Patient was positioned appropriately. Sterile prep and drape was performed. Timeout was called. At the inframammary ridge just anterior to the midaxillary line 1% lidocaine with epinephrine was injected. Transverse incision was made blunt dissection was done to rib spaces above the skin incision. This was done because patient had an elevated left hemidiaphragm. I wanted to be extra cautious to make sure that we did not get into the abdominal cavity. At the higher location, hemostat was used to bluntly penetrate into the pleural space. There was a moreland of air and fluid. I inserted my finger I could palpate the lung. I was able to extend my finger superiorly without any blockage. I took that to mean that I was above the diaphragm and in the pleural space. 24 Mauritian chest tube was inserted. We had condensation on the tubing as well as serous fluid drainage. It was secured with an 0 silk stitch. Dressings were placed. Patient tolerated the procedure well. There were no complications. Official chest x-ray report is pending. Findings: air and serous fluid in the pleural space My interpretation of the chest x-ray is that the chest tube is in good position with resolution of the pneumothorax. No obvious complications are seen. Implants: 24Fr chest tube Anesthesia: local Surgeon: ARUTRO JUAREZ Estimated blood loss: none Pathology: none Condition: stable Disposition: floor
[2020-01-16] MEDS: VANCOMYCIN 750 MG in SODIUM CHLORIDE 0.9% 250ML 250 ML IV SCH (16:49)
--- NOTE | 2020-01-16 17:00 | XRay Report ---
CHEST 1 VIEW 01/16/2020 4:47 PM INDICATION / CLINICAL INFORMATION: chest tube placement. COMPARISON: One view of the chest from earlier today. FINDINGS: SUPPORT DEVICES: A left chest tube has been placed that terminates medially along the left lung apex. HEART / MEDIASTINUM: Stable. LUNGS / PLEURA: Reduced left lung volume is noted with significant improvement of the previously seen hydropneumothorax. Left basilar atelectasis remains with improved atelectasis. Mild subsegmental ate lectasis is noted along the right mid lung. The right lung is otherwise clear. ADDITIONAL FINDINGS: No significant additional findings. IMPRESSION: 1. Status post left chest tube placement with significant improvement of the previously described hyd ropneumothorax. 2. Additional findings as above. Signer Name: Greg Higgins MD Signed: 01/16/2020 4:56 PM Workstation Name: [id number]
[2020-01-16] MEDS: LACTATED RINGERS 1,000 ML IV SCH (19:00)
[2020-01-17] MEDS: LACTATED RINGERS 1,000 ML IV SCH ×2 (06:00→17:34)
[2020-01-17] MEDS: CEFEPIME/NS 1 GM/100 ML 1 GM/100 ML BAG IV SCH ×3 (06:00→23:11)
[2020-01-17] MEDS ORDERED: SODIUM BICARBONATE 325 MG TAB FEEDTUBE PRN ×2 (08:37→11:58)
[2020-01-17] MEDS ORDERED: LIPASE 10,500/PROTEASE 25,000/AMYLASE 43,750 (UNITS) DR CAP FEEDTUBE PRN ×2 (08:37→11:58)
[2020-01-17] MEDS ORDERED: SIMPLE SYRUP 15 ML FEEDTUBE PRN ×4 (08:37→11:58)
--- NOTE | 2020-01-17 09:00 | XRay Report ---
CHEST 1 VIEW INDICATION / CLINICAL INFORMATION: Pneumothorax. COMPARISON: 01/16/2020 FINDINGS: SUPPORT DEVICES: Stable, satisfactory device positioning. HEART / MEDIASTINUM: Stable. LUNGS / PLEURA: Stable elevation of the left hemidiaphragm. Mild bibasilar atelectasis. Left lung vol ume remains low. Tiny left apical pneumothorax, overall stable. ADDITIONAL FINDINGS: No significant additional findings. IMPRESSION: 1. Left chest tube with overall unchanged tiny left apical pneumothorax. No significant interval vince patel Signer Name: Geo King MD Signed: 01/17/2020 8:55 AM Workstation Name: [id number]
[2020-01-17 09:03] LABS: Basophils % (Auto) 0.3 % (0.0-1.8); Eosinophils # (Auto) 0.1 K/mm3 (0.0-0.4); Eosinophils % (Auto) 0.6 % (0.0-4.3); Hematocrit 26.4 % (30.3-42.9); Hemoglobin 8.9 gm/dl (10.1-14.3); Lymphocytes # (Auto) 1.1 K/mm3 (1.2-5.4); Lymphocytes % (Auto) 8.8 % (13.4-35.0); Mean Corpuscular HGB Conc 34 % (30-34); Mean Corpuscular Volume 89 fl (79-97); Monocytes # (Auto) 0.5 K/mm3 (0.0-0.8); Monocytes % (Auto) 3.6 % (0.0-7.3); Platelet Count 286 K/mm3 (140-440); Red Blood Count 2.98 M/mm3 (3.65-5.03); Red Cell Distribution Width 14.1 % (13.2-15.2)
[2020-01-17 09:10] LABS: Alanine Aminotransferase 13 units/L (7-56); Albumin 1.6 g/dL (3.9-5); Blood Urea Nitrogen 12 mg/dL (7-17); Calcium 8.1 mg/dL (8.4-10.2); Hemolysis Index 4
[2020-01-17 09:18] LABS: BUN/Creatinine Ratio 30
[2020-01-17] MEDS ORDERED: POTASSIUM CHLORIDE ER 20 MEQ TAB PO ONE (09:42)
--- NOTE | 2020-01-17 09:44 | Progress Note ---
Assessment and Plan Assessment and plan: Patient is a 69-year-old -[place] female with known history of dementia, diabetes mellitus and pulmonary embolism was brought into the emergency room for decreased responsiveness, lethargy and hypotension. According to home health nurse patient has become less active and blood pressure was said to be low. She was brought to the emergency room for evaluation. Further history cannot be obtained from patient. Upon arrival in the emergency room patient had a low-grade fever. Work-up in the emergency room reveals elevated white blood cell count of 13.5, elevated BUN and creatinine 30 and 1.1 respectively. Found to be dehydrated and hypernatremic. Urinalysis shows UTI. Patient subsequently started on IV fluid and empiric IV antibiotics admitted for further evaluation. 01/08. Patient seen and examined at bedside this month. Patient not talking much this morning. Discussed case with patient spouse [patient usually does not talk much due to possible underlying dementia]. Started patient on her home medications today. Sodium slightly elevated from yesterday-162. Switch to hyp otonic solution after resuscitation. Monitor BMP 01/09. More awake today. Sodium is improving. Has tachycardia today. Received a dose of metoprolol and is on telemetry. No arrhythmias noted. Has no congestion on chest xray. Will continue IV hydration for now. She needs assistance with meals due to advanced dementia. 01/10. Sodium is improving, will speak to family about diet and possible NGT and medication, Her dementia may be the prohibiting factor. Anticipate discharge in 24 to 48 hrs. ?IF SHE IS BEDBOUND. Continue Antibiotics. 01/11. Patient seen and examined at bedside this morning. She is not eating. Discussed with patients - plan for PEG placement. GI consulted. Blood culture from 01/07 grew GN rods. Repeat Blood culture sent. She is on ceftriaxone. Her sodium level is improving gradually. 01/12. Plan for tube placement. GI on board. 01/13. Patient had temperature 101 overnight. Patient has been on appropriate antibiotics for UTI. Urine culture has been reviewed. This point need to evaluate for other etiology of fever. Surgery consulted for evaluation for need for wound debridement. Plan for PEG tube placement today. 01/14. PEG tube placed. Surgery and ID on board. Plan for wound debridement as per surgery 01/15. Plan for debridement today as per surgery. 01/15 2pm. Patient noted to be tachycardic and slightly hypoxic after having sac ral decubitus debridement. She was placed on Ventimask. EKG performed for tachycardia shows sinus ta chycardia. Patient received bolus 500 cc and 1 dose of metoprolol with slight improvement. Stat chest x-ray performed shows new small to moderate hydropneumothorax. Discussed with wreath and garland maker hand. Patient had a left-sided chest tube placed by surgery for pneumothorax. 01/16. Patient seen and examined at bedside this morning. Patient is awake looks comfortable. Has left-sided chest tube in place. Repeat x-ray ordered this morning and it shows no significant change from yesterday. Surgery is fo llowing for chest tube management. Will discuss with family today. Plan to resume Eliquis when okay with surgery - Patient Problems (1) Hydropneumothorax Current Visit: Yes Status: Acute Plan to address problem: Patient developed hydropneumothorax on 01/15. Surgery consulted and patient had a chest tube placed on 01/15. Surgery following. Chest x-ray performed on 01/16 showed no significant change of pneumothorax (2) Hypernatremia Current Visit: Yes Status: Resolved Plan to address problem: Resolved (3) Sepsis Current Visit: Yes Status: Acute Qualifiers: Sepsis type: sepsis due to unspecified organism Sepsis acute organ dysfunction status: unspecified Qualified Code(s): A41.9 - Sepsis, unspecified organism Plan to address problem: Continue antibiotics for now Monitor vital signs closely (4) UTI (urinary tract infection) Current Visit: Yes Status: Acute Qualifiers: Urinary tract infection type: acute cystitis Hematuria presence: without hematuria Qualified Code(s): N30.00 - Acute cystitis without hematuria Plan to address problem: Continue antibiotics (5) Bilateral pulmonary embolism Current Visit: No Status: Chronic Plan to address problem: Had pulmonary embolism 7 months ago. As per pulmonology, patient needs indefinite anticoagulation Continue Eliquis 5 mg twice daily. (6) Sacral decubitus ulcer Current Visit: Yes Status: Acute Plan to address problem: This was present on admission Now status post wound debridement on 01/15. Continue wound care (7) Uncontrolled diabetes mellitus Current Visit: No Status: Acute Plan to address problem: DM management (8) Dementia Current Visit: No Status: Chronic Plan to address problem: Continue donepezil (9) Moderate protein-calorie malnutrition Current Visit: Yes Status: Acute Plan to address problem: She is not eating well and is getting feeds through the NG tube. Discussed with - this problem has been chronic and he is open to getting a PEG placement to supplement her intake PEG placed 01/13. Now on tube feeds 01/15. Tube feeds temporarily 01/16. Resumed tube feeding (10) DVT prophylaxis Current Visit: No Status: Acute Plan to address problem: Resume Eliquis when okay with surgery History Interval history: Patient seen and examined at bedside this morning. She is not in any distress. Labs reviewed Hospitalist Physical - Constitutional Vitals: Temp Pulse Resp BP Pulse Ox 97.9 F 104 H 20 111/61 98 01/17/20 04:56 01/17/20 04:56 01/17/20 04:56 01/17/20 04:56 01/17/20 04:56 General appearance: Present: no acute distress - EENT Eyes: Present: PERRL - Respiratory Respiratory: bilateral: CTA - Cardiovascular Heart Sounds: Present: S1 & S2 - Extremities Extremities: No edema - Abdominal General gastrointestinal: soft, non-tender, non-distended, normal bowel sounds - Neurologic Neurologic: CNII-XII intact Results - Labs CBC & Chem 7: 01/17/20 08:36 01/17/20 08:36 Labs: Laboratory Last Values WBC 12.7 K/mm3 (4.5-11.0) H 01/17/20 08:36 RBC 2.98 M/mm3 (3.65-5.03) L 01/17/20 08:36 Hgb 8.9 gm/dl (10.1-14.3) L 01/17/20 08:36 Hct 26.4 % (30.3-42.9) L 01/17/20 08:36 MCV 89 fl (79-97) 01/17/20 08:36 MCH 30 pg (28-32) 01/17/20 08:36 MCHC 34 % (30-34) 01/17/20 08:36 RDW 14.1 % (13.2-15.2) 01/17/20 08:36 Plt Count 286 K/mm3 (140-440) 01/17/20 08:36 Lymph % (Auto) 8.8 % (13.4-35.0) L 01/17/20 08:36 [place] % (Auto) 3.6 % (0.0-7.3) 01/17/20 08:36 Eos % (Auto) 0.6 % (0.0-4.3) 01/17/20 08:36 Baso % (Auto) 0.3 % (0.0-1.8) 01/17/20 08:36 Lymph # 1.1 K/mm3 (1.2-5.4) L 01/17/20 08:36 [place] # 0.5 K/mm3 (0.0-0.8) 01/17/20 08:36 Eos # 0.1 K/mm3 (0.0-0.4) 01/17/20 08:36 Baso # 0.0 K/mm3 (0.0-0.1) 01/17/20 08:36 Add Manual Diff Complete 01/08/20 16:29 Total Counted 100 01/08/20 16:29 Seg Neutrophils % 86.7 % (40.0-70.0) H 01/17/20 08:36 Seg Neuts % (Manual) 85.0 % (40.0-70.0) H 01/08/20 16:29 Band Neutrophils % 0 % 01/08/20 16:29 Lymphocytes % (Manual) 11.0 % (13.4-35.0) L 01/08/20 16:29 Reactive Lymphs % (Man) 0 % 01/08/20 16:29 Monocytes % (Manual) 3.0 % (0.0-7.3) 01/08/20 16:29 Eosinophils % (Manual) 1.0 % (0.0-4.3) 01/08/20 16:29 Basophils % (Manual) 0 % (0.0-1.8) 01/08/20 16:29 Metamyelocytes % 0 % 01/08/20 16:29 Myelocytes % 0 % 01/08/20 16:29 Promyelocytes % 0 % 01/08/20 16:29 Blast Cells % 0 % 01/08/20 16:29 Nucleated RBC % Not Reportable 01/08/20 16:29 Seg Neutrophils # 11.0 K/mm3 (1.8-7.7) H 01/17/20 08:36 Seg Neutrophils # Man 11.5 K/mm3 (1.8-7.7) H 01/08/20 16:29 Band Neutrophils # 0.0 K/mm3 01/08/20 16:29 Lymphocytes # (Manual) 1.5 K/mm3 (1.2-5.4) 01/08/20 16:29 Abs React Lymphs (Man) 0.0 K/mm3 01/08/20 16:29 Monocytes # (Manual) 0.4 K/mm3 (0.0-0.8) 01/08/20 16:29 Eosinophils # (Manual) 0.1 K/mm3 (0.0-0.4) 01/08/20 16:29 Basophils # (Manual) 0.0 K/mm3 (0.0-0.1) 01/08/20 16:29 Metamyelocytes # 0.0 K/mm3 01/08/20 16:29 Myelocytes # 0.0 K/mm3 01/08/20 16:29 Promyelocytes # 0.0 K/mm3 01/08/20 16:29 Blast Cells # 0.0 K/mm3 01/08/20 16:29 WBC Morphology Not Reportable 01/08/20 16:29 Hypersegmented Neuts Not Reportable 01/08/20 16:29 Hyposegmented Neuts Not Reportable 01/08/20 16:29 Hypogranular Neuts Not Reportable 01/08/20 16:29 Smudge Cells Not Reportable 01/08/20 16:29 Toxic Granulation Not Reportable 01/08/20 16:29 Toxic Vacuolation Not Reportable 01/08/20 16:29 Dohle Bodies Not Reportable 01/08/20 16:29 Pelger-Huet Anomaly Not Reportable 01/08/20 16:29 Lata Rods Not Reportable 01/08/20 16:29 Platelet Estimate Not Reportable 01/08/20 16:29 Clumped Platelets Not Reportable 01/08/20 16:29 Plt Clumps, EDTA Not Reportable 01/08/20 16:29 Large Platelets Not Reportable 01/08/20 16:29 Giant Platelets Not Reportable 01/08/20 16:29 Platelet Satelliting Not Reportable 01/08/20 16:29 Plt Morphology Comment Not Reportable 01/08/20 16:29 RBC Morphology Normal 01/08/20 16:29 Dimorphic RBCs Not Reportable 01/08/20 16:29 Polychromasia Not Reportable 01/08/20 16:29 Hypochromasia Not Reportable 01/08/20 16:29 Poikilocytosis Not Reportable 01/08/20 16:29 Anisocytosis Not Reportable 01/08/20 16:29 Microcytosis Not Reportable 01/08/20 16:29 Macrocytosis Not Reportable 01/08/20 16:29 Spherocytes Not Reportable 01/08/20 16:29 Pappenheimer Bodies Not Reportable 01/08/20 16:29 Sickle Cells Not Reportable 01/08/20 16:29 Target Cells Not Reportable 01/08/20 16:29 Tear Drop Cells Not Reportable 01/08/20 16:29 Ovalocytes Not Reportable 01/08/20 16:29 Helmet Cells Not Reportable 01/08/20 16:29 Lombardi-Bagley Bodies Not Reportable 01/08/20 16:29 Driftwood Rings Not Reportable 01/08/20 16:29 Leonidas Cells Not Reportable 01/08/20 16:29 Bite Cells Not Reportable 01/08/20 16:29 Crenated Cell Not Reportable 01/08/20 16:29 Elliptocytes Not Reportable 01/08/20 16:29 Acanthocytes (Spur) Not Reportable 01/08/20 16:29 Rouleaux Not Reportable 01/08/20 16:29 Hemoglobin C Crystals Not Reportable 01/08/20 16:29 Schistocytes Not Reportable 01/08/20 16:29 Malaria parasites Not Reportable 01/08/20 16:29 Gideon Bodies Not Reportable 01/08/20 16:29 Hem Pathologist Commnt No 01/08/20 16:29 PT 15.8 Sec. (12.2-14.9) H 01/14/20 11:01 INR 1.23 (0.87-1.13) H 01/14/20 11:01 APTT 34.4 Sec. (24.2-36.6) 01/14/20 11:01 Sodium 141 mmol/L (137-145) 01/17/20 08:36 Potassium 3.3 mmol/L (3.6-5.0) L D 01/17/20 08:36 Chloride 106.9 mmol/L (98-107) 01/17/20 08:36 Carbon Dioxide 23 mmol/L (22-30) 01/17/20 08:36 Anion Gap 14 mmol/L 01/17/20 08:36 BUN 12 mg/dL (7-17) 01/17/20 08:36 Creatinine 0.4 mg/dL (0.6-1.2) L 01/17/20 08:36 Estimated GFR > 60 ml/min 01/17/20 08:36 BUN/Creatinine Ratio 30 % 01/17/20 08:36 Glucose 100 mg/dL (65-100) 01/17/20 08:36 POC Glucose 99 (70-105) 01/17/20 05:10 Hemoglobin A1c 5.3 % (4-6) 01/11/20 00:45 Lactic Acid 1.20 mmol/L (0.7-2.0) 01/09/20 05:52 Calcium 8.1 mg/dL (8.4-10.2) L 01/17/20 08:36 Magnesium 2.10 mg/dL (1.7-2.3) 01/10/20 05:23 Total Bilirubin 0.40 mg/dL (0.1-1.2) 01/17/20 08:36 AST 19 units/L (5-40) 01/17/20 08:36 ALT 13 units/L (7-56) 01/17/20 08:36 Alkaline Phosphatase 43 units/L (35-129) 01/17/20 08:36 Total Protein 4.6 g/dL (6.3-8.2) L 01/17/20 08:36 Albumin 1.6 g/dL (3.9-5) L 01/17/20 08:36 Albumin/Globulin Ratio 0.5 % 01/17/20 08:36 TSH 2.440 mlU/mL (0.270-4.200) 01/10/20 10:10 Urine Color Cordelia (Yellow) 01/08/20 Unknown Urine Turbidity Cloudy (Clear) 01/08/20 Unknown Urine pH 5.0 (5.0-7.0) 01/08/20 Unknown Ur Specific [place] 1.018 (1.003-1.030) 01/08/20 Unknown Urine Protein 30 mg/dl mg/dL (Negative) 01/08/20 Unknown Urine Glucose (UA) Neg mg/dL (Negative) 01/08/20 Unknown Urine Ketones Neg mg/dL (Negative) 01/08/20 Unknown Urine Blood Mod (Negative) 01/08/20 Unknown Urine Nitrite Neg (Negative) 01/08/20 Unknown Urine Bilirubin Neg (Negative) 01/08/20 Unknown Urine Urobilinogen < 2.0 mg/dL (<2.0) 01/08/20 Unknown Ur Leukocyte Esterase Sm (Negative) 01/08/20 Unknown Urine WBC (Auto) 11.0 /HPF (0.0-6.0) H 01/08/20 Unknown Urine RBC (Auto) 7.0 /HPF (0.0-6.0) 01/08/20 Unknown U Epithel Cells (Auto) < 1.0 /HPF (0-13.0) 01/08/20 Unknown Urine Bacteria (Auto) 1+ /HPF (Negative) 01/08/20 Unknown Urine Mucus 2+ /HPF 01/08/20 Unknown Urine Yeast (Budding) 1+ /HPF 01/08/20 Unknown Microbiology: Microbiology 01/12/20 13:22 Peripheral/Venous Blood Culture - Preliminary NO GROWTH AFTER 4 DAYS 01/12/20 13:22 Peripheral/Venous Blood Culture - Preliminary NO GROWTH AFTER 4 DAYS Mejía/IV: Voiding Method Incontinent IV Catheter Type [Right Peripheral IV Forearm] Active Medications - Current Medications Current Medications: Generic Name Dose Route Start Last Admin Trade Name Freq PRN Reason Stop Dose Admin Acetaminophen 650 mg 01/08/20 23:14 01/11/20 22:39 Tylenol PO 650 mg Q4H PRN Administration Pain MILD(1-3)/Fever >100.5/GARCIA Lipase/Protease/Amylase 1 each 01/11/20 16:25 Dnoovan Sommers 10,500 Unit FEEDTUBE PRN PRN For Clogged Feeding Tube Lipase/Protease/Amylase 1 each 01/17/20 08:37 Donovan Sommers 10,500 Unit FEEDTUBE PRN PRN For Clogged Feeding Tube Atorvastatin Calcium 10 mg 01/09/20 22:00 01/16/20 22:07 Atorvastatin PO 10 mg QHS BRO Administration Dextrose 0 ml 01/08/20 23:14 01/14/20 21:54 D50w (25gm) Syringe IV 20 ml Q30MIN PRN Administration Hypoglycemia Protocol Donepezil HCl 10 mg 01/09/20 22:00 01/16/20 22:07 Aricept PO 10 mg QHS BRO Administration Hydromorphone HCl 0.25 mg 01/16/20 09:15 Dilaudid IV Q10MIN PRN Pain, Moderate (4-6) Hydromorphone HCl 0.5 mg 01/16/20 09:15 01/16/20 11:35 Dilaudid IV 0.5 mg Q10MIN PRN Administration Pain , Severe (7-10) Cefepime HCl 1 gm in 100 mls @ 200 mls/hr 01/14/20 14:00 01/17/20 06:00 Cefepime/Ns 1 Gm/100 Ml IV 200 mls/hr Q8HR BRO Administration Protocol Lactated Ringer's 1,000 mls @ 125 mls/hr 01/16/20 10:00 01/17/20 06:00 Lactated Ringers IV 125 mls/hr DIRECT BRO Administration Vancomycin HCl 750 mg/ Sodium 265 mls @ 166.667 mls/hr 01/17/20 16:00 Chloride IV Q24H BRO Magnesium Hydroxide 30 ml 01/08/20 23:14 Milk Of Magnesia PO Q4H PRN Constipation Megestrol Acetate 400 mg 01/12/20 11:00 01/16/20 13:57 Megestrol PO 400 mg QDAY BRO Administration Mirtazapine 15 mg 01/09/20 22:00 01/16/20 22:07 Remeron PO 15 mg QHS BRO Administration Ondansetron HCl 4 mg 01/08/20 23:14 Zofran IV Q8H PRN Nausea And Vomiting Ondansetron HCl 4 mg 01/16/20 09:15 Zofran IV ONCE PRN Nausea And Vomiting Potassium Chloride 40 meq 01/17/20 09:42 K-Dur PO 01/17/20 09:43 ONCE ONE Simple Syrup 15 ml 01/11/20 16:25 Simple Syrup FEEDTUBE PRN PRN Hypoglycemia Simple Syrup 30 ml 01/11/20 16:25 Simple Syrup FEEDTUBE PRN PRN Hypoglycemia Simple Syrup 15 ml 01/17/20 08:37 Simple Syrup FEEDTUBE PRN PRN Hypoglycemia Simple Syrup 30 ml 01/17/20 08:37 Simple Syrup FEEDTUBE PRN PRN Hypoglycemia Sodium Bicarbonate 325 mg 01/11/20 16:25 Sodium Bicarbonate FEEDTUBE PRN PRN For Clogged Feeding Tube Sodium Bicarbonate 325 mg 01/17/20 08:37 Sodium Bicarbonate FEEDTUBE PRN PRN For Clogged Feeding Tube Sodium Chloride 10 ml 01/09/20 10:00 01/16/20 22:08 Sodium Chloride Flush Syringe 10 Ml IV 10 ml BID BRO Administration Sodium Chloride 10 ml 01/08/20 23:14 Sodium Chloride Flush Syringe 10 Ml IV PRN PRN LINE FLUSH Trazodone HCl 25 mg 01/09/20 22:00 01/16/20 22:37 Desyrel PO Not Given QHS BRO Nutrition/Malnutrition Assess - Dietary Evaluation Nutrition/Malnutrition Findings: Nutrition Notes Start: 01/09/20 12:13 Freq: Status: Active Protocol: Document 01/15/20 12:40 [email or web address] (Rec: 01/15/20 12:47 [email or web address]) Co-Sign 01/15/20 12:40 LM Nutrition Notes Initial or Follow up Brief Note Current Diagnosis Decubitus(Pressure Ulcer), Diabetes,Sepsis Other Pertinent Diagnosis UTI, dementia, PE, Sacral wound Current Diet NPO Labs/Tests Reviewed Pertinent Medications Reviewed Height 5 ft 2 in Weight 44.7 kg Allen Body Weight (kg) 50.00 BMI 18.0 Weight Status Underweight Subjective/Other Information Consult for post PEG placement . Burn Absent Trauma Absent Difficulty In Chewing Current % PO Negligible Minimum of two criteria No Reduced Customer Service Attendant Strength Measurably Reduced (severe) #2 Nutrition Diagnosis Inadequate oral intake Diagnosis Progress(for reassessment Continues documentation) #1 Nutrition Diagnosis Increased nutrient needs ( specify in comment below) As Evidenced by Signs and Symptoms pressure ulcer in sacrum and heel Diagnosis Progress(for reassessment Continues documentation) Is patient on ventilator? No Is Patient Ambulatory and/or Out of Bed No REE-([facility]-confined to bed) 1110.480 Kcal/Kg value to use for calculation 35 Approximate Energy Requirements Using 1565 kcal/Kg Calculation Used for Recommendations Kcal/kg Additional Notes Protein needs are 53-67 g (1.2 -1.5 g/kg) Fluid needs are 1 ml/kcal Nutrition Intervention Change Diet Order: TF Nutrition Support: Jevity 1.2, 5 cans/day B - 1 can (237 ml) L - 2 cans (474 ml) D - 2 cans (474 ml) Flush 80 ml before and after each feeding Kcal 1,425 Protein (gm) 66 Fluid (mL) 955 Goal #1 Meet at least 80% of kcal and protein needs via TF Goal #2 TF tolerance Anticipated Discharge Needs: Jevity 1.2, 5 cans/day B - 1 can (237 ml) L - 2 cans (474 ml) D - 2 cans (474 ml) Flush 80 ml before and after each feeding Follow-Up By: 01/19/20 Additional Comments F/U for TF start/tolerance
[2020-01-17] MEDS: MEGESTROL 400 MG/10 ML ORAL LIQD PO SCH (10:40)
[2020-01-17] MEDS ORDERED: POTASSIUM CHLORIDE 20 MEQ PACKET PO ONE (11:00)
--- NOTE | 2020-01-17 11:07 | Progress Note ---
Subjective Date of service: 01/17/20 Interval history: CONSULT DICTATED Objective Vital Signs Temp Pulse Resp BP BP Pulse Ox 01/17/20 04:56 97.9 F 104 H 20 111/61 98 01/16/20 22:05 112 H 98 01/16/20 22:04 97.4 F L 20 110/57 01/16/20 17:17 97.9 F 82 16 83/44 95 01/16/20 14:05 114 H 20 105/55 01/16/20 13:58 114 H 102/55 01/16/20 12:49 116 H 21 101/46 98 01/16/20 12:39 115 H 22 111/49 93 01/16/20 12:35 155 H 107/55 01/16/20 12:29 145 H 22 104/51 93 01/16/20 12:14 144 H 24 100/52 95 01/16/20 11:59 148 H 30 H 100/41 85 01/16/20 11:44 148 H 28 H 110/46 96 01/16/20 11:39 151 H 30 H 106/39 97 01/16/20 11:35 36 H 01/16/20 11:34 151 H 36 H 100/45 97 01/16/20 11:29 151 H 39 H 109/46 97 01/16/20 11:24 157 H 37 H 109/47 97 01/16/20 11:19 97.2 F L 157 H 39 H 109/46 96 - Physical Examination Neck: Positive: neck supple - Labs and Meds Cardiac Enzymes 01/17/20 Range/Units 08:36 AST 19 (5-40) units/L CBC 01/17/20 Range/Units 08:36 WBC 12.7 H (4.5-11.0) K/mm3 RBC 2.98 L (3.65-5.03) M/mm3 Hgb 8.9 L (10.1-14.3) gm/dl Hct 26.4 L (30.3-42.9) % Plt Count 286 (140-440) K/mm3 Lymph # 1.1 L (1.2-5.4) K/mm3 Miller # 0.5 (0.0-0.8) K/mm3 Eos # 0.1 (0.0-0.4) K/mm3 Baso # 0.0 (0.0-0.1) K/mm3 Comprehensive Metabolic Panel 01/17/20 Range/Units 08:36 Sodium 141 (137-145) mmol/L Potassium 3.3 L D (3.6-5.0) mmol/L Chloride 106.9 (98-107) mmol/L Carbon Dioxide 23 (22-30) mmol/L BUN 12 (7-17) mg/dL Creatinine 0.4 L (0.6-1.2) mg/dL Glucose 100 (65-100) mg/dL Calcium 8.1 L (8.4-10.2) mg/dL AST 19 (5-40) units/L ALT 13 (7-56) units/L Alkaline Phosphatase 43 (35-129) units/L Total Protein 4.6 L (6.3-8.2) g/dL Albumin 1.6 L (3.9-5) g/dL
--- NOTE | 2020-01-17 11:24 | Cat Scan Report ---
CT CHEST, ABDOMEN, AND PELVIS WITHOUT CONTRAST INDICATION / CLINICAL INFORMATION: MAIN. TECHNIQUE: Axial CT images were obtained through the chest, abdomen, and pelvis without contrast. All CT scans a t this location are performed using CT dose reduction for ALARA by means of automated exposure contro l. COMPARISON: One view chest radiograph 01/17/2020; abdominal radiograph 01/11/2020; CTA chest 05/06/2019 FINDINGS: NECK BASE: No significant abnormality. HEART: Moderate sized pericardial effusion. MEDIASTINUM and MILLIE: No significant abnormality. LUNGS/PLEURA: Small bilateral pleural effusions with associated lower lobe volume loss and air bronch ograms. Chest tube present in the left lung extending to the apex with very minimal pneumothorax. Aer ated lungs demonstrate patchy consolidative opacities in the anterior left upper lobe. HEPATOBILIARY: No significant abnormality. PANCREAS: No significant abnormality. SPLEEN: No significant abnormality. ADRENALS: No significant abnormality. GENITOURINARY: Punctate nonobstructing left nephrolith. No obstructive uropathy. Significantly disten ded bladder with minimal high attenuation layering in the base of the bladder. GASTROINTESTINAL/MESENTERY: Contrast insinuates throughout the rectum. No evidence of bowel obstructi on or inflammation. Appendix is unremarkable. Percutaneous endogastric tube is present in the body of the stomach with balloon inflated. RETROPERITONEUM: No significant adenopathy. REPRODUCTIVE ORGANS: No significant abnormality. VASCULAR: Pulmonary trunk is significantly dilated suggesting elevated pulmonary arterial pressures. Mild scattered atherosclerotic calcification. No acute vascular abnormality is identified. SKELETAL SYSTEM: No significant abnormality. ADDITIONAL FINDINGS: Moderate diffuse body wall edema. IMPRESSION: 1. Tiny left pneumothorax with left-sided chest tube in place. 2. Small bilateral pleural effusions with new complete bilateral lower lobe volume loss. Patchy conso lidation in the anterior left upper lobe. 3. Punctate nonobstructing left nephrolith. Bladder is significantly distended and there is a small a mount of layering high attenuation possibly representing tiny previously passed renal stones. No air in the bladder. 4. Percutaneous endogastric tube with satisfactory appearance. 5. Moderate-sized pericardial effusion. 6. Additional findings as above. Signer Name: Geo King MD Signed: 01/17/2020 11:20 AM Workstation Name: [id number]
--- NOTE | 2020-01-17 12:12 | Progress Note ---
Assessment and Plan - Patient Problems (1) Sacral decubitus ulcer Current Visit: Yes Status: Acute Plan to address problem: Pt stable. 01/15 - s/p sacral wound debridement and wound vac placement - POD#1 -minimal drainage noted. Wound vac change early next week 01/15 (afternoon) - s/p left chest tube placement - CXR with minimal apical PTX. Recommendations: 1. May resume Eliquis after next wound VAC change if there is minimal bleeding. 2. Continue chest tube on suction as there continues to be a small apical pneumothorax. Patient was found to have intermittent suction. I notified the nurse to make sure that suction is kept on continuous. Please call with questions. Subjective Date of service: 01/17/20 Patient Reports: Positive: no new complaints Objective Vital Signs - 12hr 01/17/20 04:56 Temperature 97.9 F Pulse Rate 104 H Respiratory 20 Rate Blood Pressure 111/61 O2 Sat by Pulse 98 Oximetry - General physical appearance no distress, no pain, other (not interactive) - Respiratory normal expansion, normal respiratory effort, other (CT with no airleak) - Integumentary other (wound vac with minimal drainage) - Labs 01/17/20 08:36 01/17/20 08:36 Diabetes panel 01/17/20 Range/Units 08:36 Sodium 141 (137-145) mmol/L Potassium 3.3 L D (3.6-5.0) mmol/L Chloride 106.9 (98-107) mmol/L Carbon Dioxide 23 (22-30) mmol/L BUN 12 (7-17) mg/dL Creatinine 0.4 L (0.6-1.2) mg/dL Glucose 100 (65-100) mg/dL Calcium 8.1 L (8.4-10.2) mg/dL AST 19 (5-40) units/L ALT 13 (7-56) units/L Alkaline Phosphatase 43 (35-129) units/L Total Protein 4.6 L (6.3-8.2) g/dL Albumin 1.6 L (3.9-5) g/dL Calcium panel 01/17/20 Range/Units 08:36 Calcium 8.1 L (8.4-10.2) mg/dL Albumin 1.6 L (3.9-5) g/dL Pituitary panel 01/17/20 Range/Units 08:36 Sodium 141 (137-145) mmol/L Potassium 3.3 L D (3.6-5.0) mmol/L Chloride 106.9 (98-107) mmol/L Carbon Dioxide 23 (22-30) mmol/L BUN 12 (7-17) mg/dL Creatinine 0.4 L (0.6-1.2) mg/dL Glucose 100 (65-100) mg/dL Calcium 8.1 L (8.4-10.2) mg/dL Adrenal panel 01/17/20 Range/Units 08:36 Sodium 141 (137-145) mmol/L Potassium 3.3 L D (3.6-5.0) mmol/L Chloride 106.9 (98-107) mmol/L Carbon Dioxide 23 (22-30) mmol/L BUN 12 (7-17) mg/dL Creatinine 0.4 L (0.6-1.2) mg/dL Glucose 100 (65-100) mg/dL Calcium 8.1 L (8.4-10.2) mg/dL Total Bilirubin 0.40 (0.1-1.2) mg/dL AST 19 (5-40) units/L ALT 13 (7-56) units/L Alkaline Phosphatase 43 (35-129) units/L Total Protein 4.6 L (6.3-8.2) g/dL Albumin 1.6 L (3.9-5) g/dL
--- NOTE | 2020-01-17 14:42 | Consultation ---
HISTORY OF PRESENT ILLNESS: The patient is a 69-year-old female with multiple medical problems including dementia and she is unable to give a history. The history was obtained from the medical record. She was admitted after she became less responsive and hypotensive. There is a history of dementia, diabetes and pulmonary embolus. She is noted to have fever, dehydration and prerenal azotemia. She was also noted to be hypernatremic and there was evidence of a UTI. A Cardiology consult was requested because of tachycardia. There is no description of cardiovascular disorders or symptoms. Since her admission, she has had a PEG placed and she developed a left pneumothorax, and has a chest tube. PAST HISTORY: ALLERGIES: None. MEDICATIONS: See the nurse's list. REVIEW OF SYSTEMS: Unable to obtain due to dementia. OPERATIONS: No surgical history has been noted. SOCIAL HISTORY: No description of smoking or alcohol. No description of heavy use. FAMILY HISTORY: No significant family history described so far. There are no family members available at this time. PHYSICAL EXAMINATION: GENERAL: Well-developed, well-nourished female, alert, but nonverbal and does not follow commands. Extremities are contracted. HEENT: Eyes, nose and throat: Remarkable for mild JVD in the supine position. The patient is nonverbal. There are no masses. NECK: Supple. LUNGS: No labored respirations. Right lung is clear. Left lung has dry rales and a chest tube is in place. HEART: Regular rhythm. No rubs, murmurs or gallops could be appreciated. ABDOMEN: Status post PEG placement. No obvious tenderness, masses, hemorrhage. Bowel sounds intact. EXTREMITIES: No cyanosis or clubbing. Trace pedal edema. There are supports on the lower legs covering some of the skin. NEUROLOGIC: Deferred. SKIN: Minor scratches. Apparently, there are some decubiti that are not observable at this time. IMAGING: EKG shows sinus tachycardia, no acute ST-T changes. IMPRESSION: 1. Tachycardia; it appears that the patient has been hydrated and is no longer septic. TSH was in the normal range. There is some mild anemia evident. She has a chest tube in place and has just had a PEG placed. There is probably some pain and apprehension present. She also had decubitus debridement. These factors could certainly create sinus tachycardia. An echocardiogram can be considered depending on how aggressive the family wants to be. Otherwise, we will observe her status clinically. It would be helpful to know if she ever had any previous cardiac studies. 2. Status post PEG placement. 3. Dementia. 4. Diabetes. 5. Resolving dehydration and hypernatremia. 6. Urinary tract infection with sepsis. 7. History of asthma. 8. Hyperlipidemia. 9. Pneumothorax, with chest tube. 10. Decubitus ulcers post-debridement. Thank you for this consultation. We will follow the patient. JOB# [id number] JANNETTE/WILFREDO WING
[2020-01-17] MEDS ORDERED: VANCOMYCIN 750 MG in SODIUM CHLORIDE 0.9% 250ML 250 ML IV SCH (16:00)
[2020-01-17] MEDS: MIRTAZAPINE 15 MG TAB PO SCH (23:11)
[2020-01-17] MEDS: traZODone 50 MG TAB PO SCH (23:12)
[2020-01-17] MEDS: DONEPEZIL 10 MG TAB PO SCH (23:12)
[2020-01-18] MEDS: LACTATED RINGERS 1,000 ML IV SCH (05:55)
[2020-01-18] MEDS: CEFEPIME/NS 1 GM/100 ML 1 GM/100 ML BAG IV SCH ×3 (05:55→21:54)
[2020-01-18] MEDS: ACETAMINOPHEN 325 MG TAB PO PRN (06:03)
[2020-01-18] MEDS: SODIUM CHLORIDE 0.9% 1000 ML 1,000 ML IV SCH ×2 (06:05→22:43)
[2020-01-18] MEDS ORDERED: VANCOMYCIN 750 MG in SODIUM CHLORIDE 0.9% 250ML 250 ML IV SCH ×2 (07:30→08:00)
[2020-01-18 08:03] LABS: Basophils % (Auto) 0.4 % (0.0-1.8); Eosinophils # (Auto) 0.1 K/mm3 (0.0-0.4); Eosinophils % (Auto) 0.9 % (0.0-4.3); Hematocrit 28.7 % (30.3-42.9); Hemoglobin 9.7 gm/dl (10.1-14.3); Lymphocytes # (Auto) 1.1 K/mm3 (1.2-5.4); Lymphocytes % (Auto) 9.2 % (13.4-35.0); Mean Corpuscular HGB Conc 34 % (30-34); Mean Corpuscular Volume 89 fl (79-97); Monocytes # (Auto) 0.5 K/mm3 (0.0-0.8); Monocytes % (Auto) 4.5 % (0.0-7.3); Platelet Count 385 K/mm3 (140-440); Red Blood Count 3.23 M/mm3 (3.65-5.03); Red Cell Distribution Width 14.7 % (13.2-15.2)
[2020-01-18 08:14] LABS: Alanine Aminotransferase 14 units/L (7-56); Albumin 2.1 g/dL (3.9-5); Blood Urea Nitrogen 15 mg/dL (7-17); Calcium 8.5 mg/dL (8.4-10.2); Hemolysis Index 2
[2020-01-18 08:16] LABS: BUN/Creatinine Ratio 38
[2020-01-18] MEDS ORDERED: ALBUMIN HUMAN 25% (25 GM/100 ML) INJ IV ONE (08:42)
[2020-01-18] MEDS: METOPROLOL TARTRATE 25 MG TAB PO SCH ×2 (09:15→21:56)
[2020-01-18] MEDS: MEGESTROL 400 MG/10 ML ORAL LIQD PO SCH (09:15)
[2020-01-18] MEDS: APIXABAN 5 MG TAB PO SCH ×2 (09:16→21:55)
--- NOTE | 2020-01-18 09:55 | Progress Note ---
Assessment and Plan Assessment and plan: Patient is a 69-year-old -Citizen Of [place] female with known history of dementia, diabetes mellitus and pulmonary embolism was brought into the emergency room for decreased responsiveness, lethargy and hypotension. According to home health nurse patient has become less active and blood pressure was said to be low. She was brought to the emergency room for evaluation. Further history cannot be obtained from patient. Upon arrival in the emergency room patient had a low-grade fever. Work-up in the emergency room reveals elevated white blood cell count of 13.5, elevated BUN and creatinine 30 and 1.1 respectively. Found to be dehydrated and hypernatremic. Urinalysis shows UTI. Patient subsequently started on IV fluid and empiric IV antibiotics admitted for further evaluation. 01/08. Patient seen and examined at bedside this month. Patient not talking much this morning. Discussed case with patient spouse [patient usually does not talk much due to possible underlying dementia]. Started patient on her home medications today. Sodium slightly elevated from yesterday-162. Switch to hyp otonic solution after resuscitation. Monitor BMP 01/09. More awake today. Sodium is improving. Has tachycardia today. Received a dose of metoprolol and is on telemetry. No arrhythmias noted. Has no congestion on chest xray. Will continue IV hydration for now. She needs assistance with meals due to advanced dementia. 01/10. Sodium is improving, will speak to family about diet and possible NGT and medication, Her dementia may be the prohibiting factor. Anticipate discharge in 24 to 48 hrs. ?IF SHE IS BEDBOUND. Continue Antibiotics. 01/11. Patient seen and examined at bedside this morning. She is not eating. Discussed with patients - plan for PEG placement. GI consulted. Blood culture from 01/07 grew GN rods. Repeat Blood culture sent. She is on ceftriaxone. Her sodium level is improving gradually. 01/12. Plan for tube placement. GI on board. 01/13. Patient had temperature 101 overnight. Patient has been on appropriate antibiotics for UTI. Urine culture has been reviewed. This point need to evaluate for other etiology of fever. Surgery consulted for evaluation for need for wound debridement. Plan for PEG tube placement today. 01/14. PEG tube placed. Surgery and ID on board. Plan for wound debridement as per surgery 01/15. Plan for debridement today as per surgery. 01/15 2pm. Patient noted to be tachycardic and slightly hypoxic after having sac ral decubitus debridement. She was placed on Ventimask. EKG performed for tachycardia shows sinus ta chycardia. Patient received bolus 500 cc and 1 dose of metoprolol with slight improvement. Stat chest x-ray performed shows new small to moderate hydropneumothorax. Discussed with senior engineering associate. Patient had a left-sided chest tube placed by surgery for pneumothorax. 01/16. Patient seen and examined at bedside this morning. Patient is awake looks comfortable. Has left-sided chest tube in place. Repeat x-ray ordered this morning and it shows no significant change from yesterday. Surgery is fo llowing for chest tube management. Will discuss with today Plan to resume Eliquis when okay with surgery 01/17. No change in medical condition. She is still tachy. Cardiology evaluation appreciated. Wound vac to sacral wound in place. Left chest tube in place. Surgery following. Ordered one dose of albumin today. I updated patients this PM. - Patient Problems (1) Hydropneumothorax Current Visit: Yes Status: Acute Plan to address problem: Patient developed hydropneumothorax on 01/15. Surgery consulted and patient had a chest tube placed on 01/15. Surgery following. Chest x-ray performed on 01/16 showed no significant change of pneumothorax (2) Hypernatremia Current Visit: Yes Status: Resolved Plan to address problem: Resolved (3) Sepsis Current Visit: Yes Status: Acute Qualifiers: Sepsis type: sepsis due to unspecified organism Sepsis acute organ dysfunc tion status: unspecified Qualified Code(s): A41.9 - Sepsis, unspecified organism Plan to address problem: Continue antibiotics for now Monitor vital signs closely (4) UTI (urinary tract infection) Current Visit: Yes Status: Acute Qualifiers: Urinary tract infection type: acute cystitis Hematuria presence: without hematuria Qualified Code(s): N30.00 - Acute cystitis without hematuria Plan to address problem: Continue antibiotics (5) Bilateral pulmonary embolism Current Visit: No Status: Chronic Plan to address problem: Had pulmonary embolism 7 months ago. As per pulmonology, patient needs indefinite anticoagulation Continue Eliquis 5 mg twice daily. (6) Sacral decubitus ulcer Current Visit: Yes Status: Acute Plan to address problem: This was present on admission Now status post wound debridement on 01/15. Wound vac in place Continue wound care (7) Uncontrolled diabetes mellitus Current Visit: No Status: Acute Plan to address problem: DM management (8) Dementia Current Visit: No Status: Chronic Plan to address problem: Continue donepezil (9) Moderate protein-calorie malnutrition Current Visit: Yes Status: Acute Plan to address problem: She is not eating well and is getting feeds through the NG tube. Discussed with - this problem has been chronic and he is open to getting a PEG placement to supplement her intake PEG placed 01/13. Now on tube feeds 01/15. Tube feeds temporarily 01/16. Resumed tube feeding 01/17. Tolerating feeds. (10) DVT prophylaxis Current Visit: No Status: Acute Plan to address problem: On eliquis 5mg BID for PE treatment History Interval history: Patient seen and examined at bedside this morning. She is not in any distress. Labs reviewed. Hospitalist Physical - Constitutional Vitals: Temp Pulse Resp BP Pulse Ox 98.7 F 129 H 18 127/68 100 01/18/20 05:54 01/18/20 09:15 01/18/20 06:46 01/18/20 09:15 01/18/20 06:46 General appearance: Present: no acute distress - EENT Eyes: Present: PERRL - Neck Neck: Present: supple - Respiratory Respiratory: bilateral: diminished - Cardiovascular Heart Sounds: Present: S1 & S2 - Abdominal General gastrointestinal: soft, non-tender, non-distended, other (PEG tube in place) - Neurologic Neurologic: CNII-XII intact Results - Labs CBC & Chem 7: 01/18/20 07:31 01/18/20 07:31 Labs: Laboratory Last Values WBC 12.1 K/mm3 (4.5-11.0) H 01/18/20 07:31 RBC 3.23 M/mm3 (3.65-5.03) L 01/18/20 07:31 Hgb 9.7 gm/dl (10.1-14.3) L 01/18/20 07:31 Hct 28.7 % (30.3-42.9) L 01/18/20 07:31 MCV 89 fl (79-97) 01/18/20 07:31 MCH 30 pg (28-32) 01/18/20 07:31 MCHC 34 % (30-34) 01/18/20 07:31 RDW 14.7 % (13.2-15.2) 01/18/20 07:31 Plt Count 385 K/mm3 (140-440) 01/18/20 07:31 Lymph % (Auto) 9.2 % (13.4-35.0) L 01/18/20 07:31 [place] % (Auto) 4.5 % (0.0-7.3) 01/18/20 07:31 Eos % (Auto) 0.9 % (0.0-4.3) 01/18/20 07: Baso % (Auto) 0.4 % (0.0-1.8) 01/18/20 07: Lymph # 1.1 K/mm3 (1.2-5.4) L 01/18/20 07: [place] # 0.5 K/mm3 (0.0-0.8) 01/18/20 07: Eos # 0.1 K/mm3 (0.0-0.4) 01/18/20 07: Baso # 0.0 K/mm3 (0.0-0.1) 01/18/20 07:31 Add Manual Diff Complete 01/08/20 16:29 Total Counted 100 01/08/20 16:29 Seg Neutrophils % 85.0 % (40.0-70.0) H 01/18/20 07:31 Seg Neuts % (Manual) 85.0 % (40.0-70.0) H 01/08/20 16:29 Band Neutrophils % 0 % 01/08/20 16:29 Lymphocytes % (Manual) 11.0 % (13.4-35.0) L 01/08/20 16:29 Reactive Lymphs % (Man) 0 % 01/08/20 16:29 Monocytes % (Manual) 3.0 % (0.0-7.3) 01/08/20 16:29 Eosinophils % (Manual) 1.0 % (0.0-4.3) 01/08/20 16:29 Basophils % (Manual) 0 % (0.0-1.8) 01/08/20 16:29 Metamyelocytes % 0 % 01/08/20 16:29 Myelocytes % 0 % 01/08/20 16:29 Promyelocytes % 0 % 01/08/20 16:29 Blast Cells % 0 % 01/08/20 16:29 Nucleated RBC % Not Reportable 01/08/20 16:29 Seg Neutrophils # 10.3 K/mm3 (1.8-7.7) H 01/18/20 07:31 Seg Neutrophils # Man 11.5 K/mm3 (1.8-7.7) H 01/08/20 16:29 Band Neutrophils # 0.0 K/mm3 01/08/20 16:29 Lymphocytes # (Manual) 1.5 K/mm3 (1.2-5.4) 01/08/20 16:29 Abs React Lymphs (Man) 0.0 K/mm3 01/08/20 16:29 Monocytes # (Manual) 0.4 K/mm3 (0.0-0.8) 01/08/20 16: Eosinophils # (Manual) 0.1 K/mm3 (0.0-0.4) 01/08/20 16:29 Basophils # (Manual) 0.0 K/mm3 (0.0-0.1) 01/08/20 16:29 Metamyelocytes # 0.0 K/mm3 01/08/20 16:29 Myelocytes # 0.0 K/mm3 01/08/20 16:29 Promyelocytes # 0.0 K/mm3 01/08/20 16:29 Blast Cells # 0.0 K/mm3 01/08/20 16:29 WBC Morphology Not Reportable 01/08/20 16:29 Hypersegmented Neuts Not Reportable 01/08/20 16:29 Hyposegmented Neuts Not Reportable 01/08/20 16:29 Hypogranular Neuts Not Reportable 01/08/20 16:29 Smudge Cells Not Reportable 01/08/20 16:29 Toxic Granulation Not Reportable 01/08/20 16:29 Toxic Vacuolation Not Reportable 01/08/20 16:29 Dohle Bodies Not Reportable 01/08/20 16:29 Pelger-Huet Anomaly Not Reportable 01/08/20 16:29 Lata Rods Not Reportable 01/08/20 16:29 Platelet Estimate Not Reportable 01/08/20 16:29 Clumped Platelets Not Reportable 01/08/20 16:29 Plt Clumps, EDTA Not Reportable 01/08/20 16:29 Large Platelets Not Reportable 01/08/20 16:29 Giant Platelets Not Reportable 01/08/20 16:29 Platelet Satelliting Not Reportable 01/08/20 16:29 Plt Morphology Comment Not Reportable 01/08/20 16:29 RBC Morphology Normal 01/08/20 16:29 Dimorphic RBCs Not Reportable 01/08/20 16:29 Polychromasia Not Reportable 01/08/20 16:29 Hypochromasia Not Reportable 01/08/20 16:29 Poikilocytosis Not Reportable 01/08/20 16:29 Anisocytosis Not Reportable 01/08/20 16:29 Microcytosis Not Reportable 01/08/20 16:29 Macrocytosis Not Reportable 01/08/20 16:29 Spherocytes Not Reportable 01/08/20 16:29 Pappenheimer Bodies Not Reportable 01/08/20 16:29 Sickle Cells Not Reportable 01/08/20 16:29 Target Cells Not Reportable 01/08/20 16:29 Tear Drop Cells Not Reportable 01/08/20 16:29 Ovalocytes Not Reportable 01/08/20 16:29 Helmet Cells Not Reportable 01/08/20 16:29 [place] Bodies Not Reportable 01/08/20 16:29 [place] Rings Not Reportable 01/08/20 16:29 [place] Cells Not Reportable 01/08/20 16:29 Bite Cells Not Reportable 01/08/20 16:29 Crenated Cell Not Reportable 01/08/20 16:29 Elliptocytes Not Reportable 01/08/20 16:29 Acanthocytes (Spur) Not Reportable 01/08/20 16:29 Rouleaux Not Reportable 01/08/20 16:29 Hemoglobin C Crystals Not Reportable 01/08/20 16:29 Schistocytes Not Reportable 01/08/20 16:29 Malaria parasites Not Reportable 01/08/20 16:29 Gideon Bodies Not Reportable 01/08/20 16:29 Hem Pathologist Commnt No 01/08/20 16:29 PT 15.8 Sec. (12.2-14.9) H 01/14/20 11:01 INR 1.23 (0.87-1.13) H 01/14/20 11:01 APTT 34.4 Sec. (24.2-36.6) 01/14/20 11:01 Sodium 142 mmol/L (137-145) 01/18/20 07:31 Potassium 4.6 mmol/L (3.6-5.0) D 01/18/20 07:31 Chloride 106.3 mmol/L (98-107) 01/18/20 07:31 Carbon Dioxide 25 mmol/L (22-30) 01/18/20 07:31 Anion Gap 15 mmol/L 01/18/20 07:31 BUN 15 mg/dL (7-17) 01/18/20 07:31 Creatinine 0.4 mg/dL (0.6-1.2) L 01/18/20 07:31 Estimated GFR > 60 ml/min 01/18/20 07:31 BUN/Creatinine Ratio 38 % 01/18/20 07:31 Glucose 108 mg/dL (65-100) H 01/18/20 07:31 POC Glucose 122 (70-105) H 01/18/20 06:27 Hemoglobin A1c 5.3 % (4-6) 01/11/20 00:45 Lactic Acid 1.20 mmol/L (0.7-2.0) 01/09/20 05:52 Calcium 8.5 mg/dL (8.4-10.2) 01/18/20 07:31 Magnesium 2.10 mg/dL (1.7-2.3) 01/10/20 05:23 Total Bilirubin 0.40 mg/dL (0.1-1.2) 01/18/20 07:31 AST 19 units/L (5-40) 01/18/20 07:31 ALT 14 units/L (7-56) 01/18/20 07:31 Alkaline Phosphatase 54 units/L (35-129) 01/18/20 07:31 Total Protein 5.3 g/dL (6.3-8.2) L 01/18/20 07:31 Albumin 2.1 g/dL (3.9-5) L 01/18/20 07:31 Albumin/Globulin Ratio 0.7 % 01/18/20 07:31 TSH 2.440 mlU/mL (0.270-4.200) 01/10/20 10:10 Urine Color [place] (Yellow) 01/08/20 Unknown Urine Turbidity Cloudy (Clear) 01/08/20 Unknown Urine pH 5.0 (5.0-7.0) 01/08/20 Unknown Ur Specific [place] 1.018 (1.003-1.030) 01/08/20 Unknown Urine Protein 30 mg/dl mg/dL (Negative) 01/08/20 Unknown Urine Glucose (UA) Neg mg/dL (Negative) 01/08/20 Unknown Urine Ketones Neg mg/dL (Negative) 01/08/20 Unknown Urine Blood Mod (Negative) 01/08/20 Unknown Urine Nitrite Neg (Negative) 01/08/20 Unknown Urine Bilirubin Neg (Negative) 01/08/20 Unknown Urine Urobilinogen < 2.0 mg/dL (<2.0) 01/08/20 Unknown Ur Leukocyte Esterase Sm (Negative) 01/08/20 Unknown Urine WBC (Auto) 11.0 /HPF (0.0-6.0) H 01/08/20 Unknown Urine RBC (Auto) 7.0 /HPF (0.0-6.0) 01/08/20 Unknown U Epithel Cells (Auto) < 1.0 /HPF (0-13.0) 01/08/20 Unknown Urine Bacteria (Auto) 1+ /HPF (Negative) 01/08/20 Unknown Urine Mucus 2+ /HPF 01/08/20 Unknown Urine Yeast (Budding) 1+ /HPF 01/08/20 Unknown Vancomycin Trough 7.9 ug/mL (5.0-20.0) 01/17/20 16:04 Microbiology: Microbiology 01/12/20 13:22 Peripheral/Venous Blood Culture - Final NO GROWTH AFTER 5 DAYS 01/12/20 13:22 Peripheral/Venous Blood Culture - Final NO GROWTH AFTER 5 DAYS Mejía/IV: Voiding Method Incontinent IV Catheter Type [Right Peripheral IV Forearm] Active Medications - Current Medications Current Medications: Generic Name Dose Route Start Last Admin Trade Name Freq PRN Reason Stop Dose Admin Acetaminophen 650 mg 01/08/20 23:14 01/18/20 06:03 Tylenol PO 650 mg Q4H PRN Administration Pain MILD(1-3)/Fever >100.5/GARCIA Lipase/Protease/Amylase 1 each 01/17/20 08:[address] 10,500 Unit FEEDTUBE PRN PRN For Clogged Feeding Tube Apixaban 5 mg 01/18/20 10:00 01/18/20 09:16 Eliquis PO 5 mg Q12HR BRO Administration Protocol Atorvastatin Calcium 10 mg 01/09/20 22:00 01/17/20 23:11 Atorvastatin PO 10 mg QHS BRO Administration Dextrose 0 ml 01/08/20 23:14 01/14/20 21:54 D50w (25gm) Syringe IV 20 ml Q30MIN PRN Administration Hypoglycemia Protocol Donepezil HCl 10 mg 01/09/20 22:00 01/17/20 23:12 Aricept PO 10 mg QHS BRO Administration Hydromorphone HCl 0.25 mg 01/16/20 09:15 Dilaudid IV Q10MIN PRN Pain, Moderate (4-6) Hydromorphone HCl 0.5 mg 01/16/20 09:15 01/16/20 11:35 Dilaudid IV 0.5 mg Q10MIN PRN Administration Pain , Severe (7-10) Cefepime HCl 1 gm in 100 mls @ 200 mls/hr 01/14/20 14:00 01/18/20 05:55 Cefepime/Ns 1 Gm/100 Ml IV 200 mls/hr Q8HR BRO Administration Protocol Sodium Chloride 1,000 mls @ 125 mls/hr 01/18/20 06:00 01/18/20 06:05 Nacl 0.9% 1000 Ml IV 125 mls/hr DIRECT BRO Administration Vancomycin HCl 750 mg/ Sodium 265 mls @ 166.667 mls/hr 01/18/20 08:00 01/18/20 09:25 Chloride IV 166.667 mls/hr Q12H BRO Administration Magnesium Hydroxide 30 ml 01/08/20 23:14 Milk Of Magnesia PO Q4H PRN Constipation Megestrol Acetate 400 mg 01/12/20 11:00 01/18/20 09:15 Megestrol PO 400 mg QDAY BRO Administration Metoprolol Tartrate 12.5 mg 01/18/20 10:00 01/18/20 09:15 Metoprolol PO 12.5 mg BID BRO Administration Mirtazapine 15 mg 01/09/20 22:00 01/17/20 23:11 Remeron PO 15 mg QHS BRO Administration Ondansetron HCl 4 mg 01/08/20 23:14 Zofran IV Q8H PRN Nausea And Vomiting Simple Syrup 15 ml 01/17/20 08:37 Simple Syrup FEEDTUBE PRN PRN Hypoglycemia Simple Syrup 30 ml 01/17/20 08:37 Simple Syrup FEEDTUBE PRN PRN Hypoglycemia Sodium Bicarbonate 325 mg 01/17/20 08:37 Sodium Bicarbonate FEEDTUBE PRN PRN For Clogged Feeding Tube Sodium Chloride 10 ml 01/09/20 10:00 01/18/20 09:16 Sodium Chloride Flush Syringe 10 Ml IV 10 ml BID BRO Administration Sodium Chloride 10 ml 01/08/20 23:14 Sodium Chloride Flush Syringe 10 Ml IV PRN PRN LINE FLUSH Trazodone HCl 25 mg 01/09/20 22:00 01/17/20 23:12 Desyrel PO Not Given QHS [facility] Nutrition/Malnutrition Assess - Dietary Evaluation Nutrition/Malnutrition Findings: Nutrition Notes Start: 01/09/20 12:13 Freq: Status: Active Protocol: Document 01/15/20 12:40 [email or web address] (Rec: 01/15/20 12:47 [email or web address]) Co-Sign 01/15/20 12:40 LM Nutrition Notes Initial or Follow up Brief Note Current Diagnosis Decubitus(Pressure Ulcer), Diabetes,Sepsis Other Pertinent Diagnosis UTI, dementia, PE, Sacral wound Current Diet NPO Labs/Tests Reviewed Pertinent Medications Reviewed Height 5 ft 2 in Weight 44.7 kg [place] Body Weight (kg) 50.00 BMI 18.0 Weight Status Underweight Subjective/Other Information Consult for post PEG placement . Burn Absent Trauma Absent Difficulty In Chewing Current % PO Negligible Minimum of two criteria No Reduced [place] Worker Strength Measurably Reduced (severe) #2 Nutrition Diagnosis Inadequate oral intake Diagnosis Progress(for reassessment Continues documentation) #1 Nutrition Diagnosis Increased nutrient needs ( specify in comment below) As Evidenced by Signs and Symptoms pressure ulcer in sacrum and heel Diagnosis Progress(for reassessment Continues documentation) Is patient on ventilator? No Is Patient Ambulatory and/or Out of Bed No REE-([facility]-confined to bed) 1110.480 Kcal/Kg value to use for calculation 35 Approximate Energy Requirements Using 1565 kcal/Kg Calculation Used for Recommendations Kcal/kg Additional Notes Protein needs are 53-67 g (1.2 -1.5 g/kg) Fluid needs are 1 ml/kcal Nutrition Intervention Change Diet Order: TF Nutrition Support: Jevity 1.2, 5 cans/day B - 1 can (237 ml) L - 2 cans (474 ml) D - 2 cans (474 ml) Flush 80 ml before and after each feeding Kcal 1,425 Protein (gm) 66 Fluid (mL) 955 Goal #1 Meet at least 80% of kcal and protein needs via TF Goal #2 TF tolerance Anticipated Discharge Needs: Jevity 1.2, 5 cans/day B - 1 can (237 ml) L - 2 cans (474 ml) D - 2 cans (474 ml) Flush 80 ml before and after each feeding Follow-Up By: 01/19/20 Additional Comments F/U for TF start/tolerance
--- NOTE | 2020-01-18 15:26 | Progress Note ---
Assessment and Plan - Patient Problems (1) Pneumothorax Current Visit: Yes Status: Acute (2) Sacral decubitus ulcer Current Visit: Yes Status: Acute (3) Encephalopathy Current Visit: No Status: Acute (4) Tachycardia Current Visit: Yes Status: Acute Subjective Date of service: 01/18/20 Interval history: NONVERBAL,,ALERT Objective Vital Signs Temp Pulse Resp BP Pulse Ox 01/18/20 12:26 113 H 01/18/20 12:19 95/58 01/18/20 11:18 97.8 F 101 H 20 85/54 98 01/18/20 10:00 16 01/18/20 09:15 129 H 127/68 01/18/20 09:00 16 01/18/20 08:40 127/68 01/18/20 06:46 123 H 18 110/65 100 01/18/20 05:54 98.7 F 131 H 20 109/60 100 01/18/20 04:16 98.9 F 16 95/50 01/17/20 21:29 99.1 F 136 H 16 95/43 100 01/17/20 16:37 82 124/57 85 01/17/20 16:24 98.0 F 125 H 20 86/43 99 - Physical Examination General: No Apparent Distress HEENT: Positive: PERRL Neck: Positive: neck supple Cardiac: Positive: Reg Rate and Rhythm Lungs: Positive: Rhonchi (LEFT LUNG) Abdomen: Positive: Soft, Other (PEG) Extremities: Present: edema (NO) - Labs and Meds Cardiac Enzymes 01/18/20 Range/Units 07:31 AST 19 (5-40) units/L CBC 01/18/20 Range/Units 07:31 WBC 12.1 H (4.5-11.0) K/mm3 RBC 3.23 L (3.65-5.03) M/mm3 Hgb 9.7 L (10.1-14.3) gm/dl Hct 28.7 L (30.3-42.9) % Plt Count 385 (140-440) K/mm3 Lymph # 1.1 L (1.2-5.4) K/mm3 [place] # 0.5 (0.0-0.8) K/mm3 Eos # 0.1 (0.0-0.4) K/mm3 Baso # 0.0 (0.0-0.1) K/mm3 Comprehensive Metabolic Panel 01/18/20 Range/Units 07:31 Sodium 142 (137-145) mmol/L Potassium 4.6 D (3.6-5.0) mmol/L Chloride 106.3 (98-107) mmol/L Carbon Dioxide 25 (22-30) mmol/L BUN 15 (7-17) mg/dL Creatinine 0.4 L (0.6-1.2) mg/dL Glucose 108 H (65-100) mg/dL Calcium 8.5 (8.4-10.2) mg/dL AST 19 (5-40) units/L ALT 14 (7-56) units/L Alkaline Phosphatase 54 (35-129) units/L Total Protein 5.3 L (6.3-8.2) g/dL Albumin 2.1 L (3.9-5) g/dL
[2020-01-18] MEDS: MIRTAZAPINE 15 MG TAB PO SCH (21:55)
[2020-01-18] MEDS: traZODone 50 MG TAB PO SCH (21:55)
[2020-01-18] MEDS: DONEPEZIL 10 MG TAB PO SCH (21:56)
[2020-01-19] MEDS: CEFEPIME/NS 1 GM/100 ML 1 GM/100 ML BAG IV SCH (05:31)
--- NOTE | 2020-01-19 08:00 | XRay Report ---
CHEST - 1 VIEW 0736 hours INDICATION: re-eval left apical PTX COMPARISON: 01/17/2020 FINDINGS: Support devices: Stable positioning of the left chest tube. Heart: Stable cardiomediastinal silhouette. Lungs/pleura: Mild increase in right basilar atelectasis. Stable left basilar atelectatic changes an d elevated left hemidiaphragm. The upper lung zones remain clear. No appreciable residual left apical pneumothorax. Additional findings: None. IMPRESSION: No residual left apical pneumothorax is detected. Signer Name: Beni Mills Jr, MD Signed: 01/19/2020 7:55 AM Workstation Name: [id number]
--- NOTE | 2020-01-19 09:19 | Progress Note ---
Assessment and Plan Reflex sinus tachycardia Left hydropneumothorax s/p chest tube Sepsis Hx of PE -on eliquis for anticoagulation Sacral wound Dementia No specific management indicated for reflex sinus tachycardia. Conservative cardiac management. Subjective Date of service: 01/19/20 Interval history: Patient is non-verbal. She is resting in bed and appears comfortable. She has a wound vac to drainage and a left chest tube in place. Sinus tachycardia on telemetry. No arrhythmias reported. Objective Vital Signs Temp Pulse Resp BP Pulse Ox 01/19/20 04:42 97.8 F 129 H 16 114/62 100 01/18/20 21:18 99.4 F 138 H 20 100/52 100 01/18/20 16:09 97.4 F L 129 H 24 100/52 100 01/18/20 15:43 99/55 01/18/20 12:26 113 H 01/18/20 12:19 95/58 01/18/20 11:18 97.8 F 101 H 20 85/54 98 01/18/20 10:00 16 01/18/20 09:15 129 H 127/68 - Physical Examination General: No Apparent Distress HEENT: Positive: PERRL Cardiac: Positive: Tachycardia Lungs: Positive: Decreased Breath Sounds Abdomen: Positive: Other (PEG)
--- NOTE | 2020-01-19 09:32 | Progress Note ---
Assessment and Plan - Patient Problems (1) Sacral decubitus ulcer Current Visit: Yes Status: Acute Plan to address problem: Pt stable. 01/15 - s/p sacral wound debridement and wound vac placement - POD#3 -minimal drainage noted. Wound vac change early this week 01/15 (afternoon) - s/p left chest tube placement - CXR with minimal apical PTX. Recommendations: 1. May resume Eliquis after next wound VAC change if there is minimal bleeding. 2. Chest tube to waterseal. There is no pneumothorax on the chest x-ray today. We will repeat the chest x-ray tomorrow. Please call with questions. Subjective Date of service: 01/19/20 Patient Reports: Positive: no new complaints Objective Vital Signs - 12hr 01/19/20 04:42 Temperature 97.8 F Pulse Rate 129 H Respiratory 16 Rate Blood Pressure 114/62 O2 Sat by Pulse 100 Oximetry - General physical appearance no distress, no pain, other (not-interactive) - Respiratory normal expansion, normal respiratory effort, other (CT with no airleak) - Labs 01/18/20 07:31 01/18/20 07:31
[2020-01-19] MEDS: APIXABAN 5 MG TAB PO SCH ×2 (10:43→22:50)
[2020-01-19] MEDS: MEGESTROL 400 MG/10 ML ORAL LIQD PO SCH (10:44)
[2020-01-19] MEDS: METOPROLOL TARTRATE 25 MG TAB PO SCH ×3 (10:49→22:49)
--- NOTE | 2020-01-19 11:03 | Consultation ---
History of Present Illness - Reason for Consult Consult date: 01/19/20 unstagable sacral ulcer Requesting physician: ELIA SHARMA - History of Present Illness 69 years old female with history of diabetes mellitus, pulmonary embolism, dementia, admitted on 01/08/2020 due to altered mental status, lethargy and hypotension. Patient was evaluated by her home health nurse who found her less active and hypotensive. Patient is not the best historian. Upon arrival, temperature was 100.1, HR 125, O2 99, BP 123/74. Initial WBC 13.5. Sodium 161. Creatinine 1.1. Lactate 2.2. Urinalysis with small leukocyte esterase and 11 WBCs. Blood cultures 01/08/2020 grew Proteus mirabilis. Repeat blood culture 01/12/2020 no growth. Urine culture 01/08/2020 no growth. Patient underwent trach placement on 01/14/2020. Patient was found to have a sacral decubitus and was taken to the operating room on 01/16/2020 for debridement and wound VAC placement. Tissue culture 01/16/2020 grew Proteus and enterococcus. On 01/16/2020 patient became tachycardic and hypoxic placed on Ventimask, chest x- ray shows new small hydropneumothorax. Left-sided chest tube was placed. Review of Systems: Unable to obtain Past History Past Medical History: diabetes, hyperlipidemia, pulmonary embolism, other (Dementia,Asthma) Past Surgical History: No surgical history Social history: no significant social history Family history: no significant family history Medications and Allergies Allergies Allergy/AdvReac Type Severity Reaction Status Date / Time No Known Allergies Allergy Unverified 06/23/14 09:54 Home Medications Medication Instructions Recorded Confirmed Last Taken Type AtorvaSTATin 10 mg PO QHS 05/06/19 05/06/19 05/05/19 History Donepezil HCl [Donepezil HCl Odt] 10 mg PO QHS 05/06/19 05/06/19 Unknown History LORazepam [Lorazepam] 0.5 mg PO BID 05/06/19 05/06/19 Unknown History Melatonin [Melatonin 10MG CAP] 10 mg PO QHS 05/06/19 05/06/19 05/05/19 History Metformin HCl [Metformin HCl ER] 500 mg PO Q2D 12/31/19 12/31/19 12/30/19 History Apixaban [Eliquis] 5 mg PO BID 30 Days #60 tablet 05/08/19 Unknown Rx Apixaban [Eliquis] 10 mg PO BID 7 Days #14 tablet 05/08/19 Unknown Rx Active Meds: Active Medications Acetaminophen (Tylenol) 650 mg PO Q4H PRN PRN Reason: Pain MILD(1-3)/Fever >100.5/GARCIA Last Admin: 01/18/20 06:03 Dose: 650 mg Documented by: Lipase/Protease/Amylase (Donovan Sommers 10,500 Unit) 1 each FEEDTUBE PRN PRN PRN Reason: For Clogged Feeding Tube Apixaban (Eliquis) 5 mg PO Q12HR [facility]; Protocol Last Admin: 01/19/20 10:43 Dose: 5 mg Documented by: Atorvastatin Calcium (Atorvastatin) 10 mg PO QHS [facility] Last Admin: 01/18/20 21:55 Dose: 10 mg Documented by: Dextrose (D50w (25gm) Syringe) 0 ml IV Q30MIN PRN; Protocol PRN Reason: Hypoglycemia Last Admin: 01/14/20 21:54 Dose: 20 ml Documented by: Donepezil HCl (Aricept) 10 mg PO QHS [facility] Last Admin: 01/18/20 21:56 Dose: 10 mg Documented by: Cefepime HCl (Cefepime/Ns 1 Gm/100 Ml) 1 gm in 100 mls @ 200 mls/hr IV Q8HR S ; Protocol Last Admin: 01/19/20 05:31 Dose: 200 mls/hr Documented by: Sodium Chloride (Nacl 0.9% 1000 Ml) 1,000 mls @ 60 mls/hr IV DIRECT [facility] Last Admin: 01/18/20 22:43 Dose: 125 mls/hr Documented by: Magnesium Hydroxide (Milk Of Magnesia) 30 ml PO Q4H PRN PRN Reason: Constipation Megestrol Acetate (Megestrol) 400 mg PO QDAY [facility] Last Admin: 01/19/20 10:44 Dose: 400 mg Documented by: Metoprolol Tartrate (Metoprolol) 12.5 mg PO BID [facility] Last Admin: 01/19/20 10:49 Dose: Not Given Documented by: Mirtazapine (Remeron) 15 mg PO QHS [facility] Last Admin: 01/18/20 21:55 Dose: 15 mg Documented by: Ondansetron HCl (Zofran) 4 mg IV Q8H PRN PRN Reason: Nausea And Vomiting Simple Syrup (Simple Syrup) 15 ml FEEDTUBE PRN PRN PRN Reason: Hypoglycemia Simple Syrup (Simple Syrup) 30 ml FEEDTUBE PRN PRN PRN Reason: Hypoglycemia Sodium Bicarbonate (Sodium Bicarbonate) 325 mg FEEDTUBE PRN PRN PRN Reason: For Clogged Feeding Tube Sodium Chloride (Sodium Chloride Flush Syringe 10 Ml) 10 ml IV BID [facility] Last Admin: 01/19/20 10:49 Dose: Not Given Documented by: Sodium Chloride (Sodium Chloride Flush Syringe 10 Ml) 10 ml IV PRN PRN PRN Reason: LINE FLUSH Trazodone HCl (Desyrel) 25 mg PO QHS [facility] Last Admin: 01/18/20 21:55 Dose: 25 mg Documented by: Physical Examination - Physical Exam Narrative exam: Physical Exam: Constitutional: alert non verbal on ventimask Head, Ears, Nose: Normocephalic, atraumatic. External ears, nose normal Eyes: Conjunctivae/corneas clear. No icterus. No ptosis. Neck: Supple, no meningeal signs Cardiovascular: S1, S2 normal. Respiratory: decreased BS, left sided chest tube GI: Soft, non-tender Musculoskeletal: jade upper extremities and lower extremities edema Skin: sacral wound w wound VAC Hem/Lymphatic: No palpable cervical or supraclavicular nodes. No lymphangitis Psych: no agitated Neurological: alert alternating with somnolence non verbal Per wound care: Right heel with deep tissue injury, measures 6 x 4 x 0.1 cm. Sacrum unstageable pressure injury, measures 8 x 6.5 x 0.4 cm. Now with a wound VAC. - Constitutional Vitals: Vital Signs Temp Pulse Resp BP Pulse Ox 97.8 F 129 H 16 95/38 100 01/19/20 04:42 01/19/20 04:42 01/19/20 04:42 01/19/20 10:49 01/19/20 04:42 Temperature -Last 24 Hours Temperature 97.8 F Temperature 99.4 F Temperature 97.4 F Temperature 97.8 F Results - Labs CBC & Chem 7: 01/18/20 07:31 01/18/20 07:31 Labs: Abnormal lab results 01/18/20 01/18/20 01/19/20 Range/Units 11:39 18:22 00:15 POC Glucose 172 H 119 H 135 H (70-105) Assessment and Plan Cultures: Blood cultures 01/08/2020 MDR Proteus mirabilis. Blood culture 01/12/2020 no growth. Urine culture 01/08/2020 no growth. Tissue culture 01/16/2020 MDR Proteus and enterococcus A/P: 69 years old female with history of diabetes mellitus, pulmonary embolism, dementia, admitted on 01/08/2020 due to altered mental status, lethargy and hypot ension. Patient was evaluated by her home health nurse who found her less active and hypotensive: #Sepsis: Present on admission with fever, tachycardia, leukocytosis, secondary to bacteremia and sacral decubitus infection. #MDR Proteus bacteremia: Likely from sacral decubitus' #Unstageable sacral decubitus, infected: Status post or debridement on 01/16/2020, tissue cultures growing MDR Proteus and enterococcus. OR findings extensive fascial necrosis. Discussed with Dr Vo likely osteomyelitis. #Mild UTI #Left sided Pneumothorax: Status post chest tube placement #Acute hypoxemic respiratory failure: Likely secondary to pneumothorax, on ventimask Recs:- -Stop cefepime -Start Zosyn 4.5 g IV every 8 hours -Offloading of sacral area/heels -Discuss with family goals of care, overall poor prognosis, bedbound, if family wants agresive management then will treat with zosyn 4.5 g IV every 8 hours total 6 weeks till 02/27/2020. will discuss with welfare case worker MD Celsa Lockett [facility] C: [phone] O: [phone]
--- NOTE | 2020-01-19 12:52 | Progress Note ---
Assessment and Plan Assessment and plan: Patient is a 69-year-old -[place] female with known history of dementia, diabetes mellitus and pulmonary embolism was brought into the emergency room for decreased responsiveness, lethargy and hypotension. According to home health nurse patient has become less active and blood pressure was said to be low. She was brought to the emergency room for evaluation. Further history cannot be obtained from patient. Upon arrival in the emergency room patient had a low-grade fever. Work-up in the emergency room reveals elevated white blood cell count of 13.5, elevated BUN and creatinine 30 and 1.1 respectively. Found to be dehydrated and hypernatremic. Urinalysis shows UTI. Patient subsequently started on IV fluid and empiric IV antibiotics admitted for further evaluation. 01/08. Patient seen and examined at bedside this month. Patient not talking much this morning. Discussed case with patient spouse [patient usually does not talk much due to possible underlying dementia]. Started patient on her home medications today. Sodium slightly elevated from yesterday-162. Switch to hyp otonic solution after resuscitation. Monitor BMP 01/09. More awake today. Sodium is improving. Has tachycardia today. Received a dose of metoprolol and is on telemetry. No arrhythmias noted. Has no congestion on chest xray. Will continue IV hydration for now. She needs assistance with meals due to advanced dementia. 01/10. Sodium is improving, will speak to family about diet and possible NGT and medication, Her dementia may be the prohibiting factor. Anticipate discharge in 24 to 48 hrs. ?IF SHE IS BEDBOUND. Continue Antibiotics. 01/11. Patient seen and examined at bedside this morning. She is not eating. Discussed with patients - plan for PEG placement. GI consulted. Blood culture from 01/07 grew GN rods. Repeat Blood culture sent. She is on ceftriaxone. Her sodium level is improving gradually. 01/12. Plan for tube placement. GI on board. 01/13. Patient had temperature 101 overnight. Patient has been on appropriate antibiotics for UTI. Urine culture has been reviewed. This point need to evaluate for other etiology of fever. Surgery consulted for evaluation for need for wound debridement. Plan for PEG tube placement today. 01/14. PEG tube placed. Surgery and ID on board. Plan for wound debridement as per surgery 01/15. Plan for debridement today as per surgery. 01/15 2pm. Patient noted to be tachycardic and slightly hypoxic after having sac ral decubitus debridement. She was placed on Ventimask. EKG performed for tachycardia shows sinus ta chycardia. Patient received bolus 500 cc and 1 dose of metoprolol with slight improvement. Stat chest x-ray performed shows new small to moderate hydropneumothorax. Discussed with physician coding specialist. Patient had a left-sided chest tube placed by surgery for pneumothorax. 01/16. Patient seen and examined at bedside this morning. Patient is awake looks comfortable. Has left-sided chest tube in place. Repeat x-ray ordered this morning and it shows no significant change from yesterday. Surgery is fo llowing for chest tube management. Will discuss with today Plan to resume Eliquis when okay with surgery 01/17. No change in medical condition. She is still tachy. Cardiology evaluation appreciated. Wound vac to sacral wound in place. Left chest tube in place. Surgery following. Ordered one dose of albumin today. I updated patients this PM. ID consulted 01/18. Antibiotics switched to zosyn. Duration of antibiotics to be determined. - Patient Problems (1) Hydropneumothorax Current Visit: Yes Status: Acute Plan to address problem: Patient developed hydropneumothorax on 01/15. Surgery consulted and patient had a chest tube placed on 01/15. Surgery following. Chest x-ray performed on 01/16 showed no significant change of pneumothorax (2) Hypernatremia Current Visit: Yes Status: Resolved Plan to address problem: Resolved (3) Sepsis Current Visit: Yes Status: Acute Qualifiers: Sepsis type: sepsis due to unspecified organism Sepsis acute organ dysfunction status: unspecified Qualified Code(s): A41.9 - Sepsis, unspecified organism Plan to address problem: On zosyn Monitor vital signs closely (4) UTI (urinary tract infection) Current Visit: Yes Status: Resolved Qualifiers: Urinary tract infection type: acute cystitis Hematuria presence: without hematuria Qualified Code(s): N30.00 - Acute cystitis without hematuria Plan to address problem: Continue antibiotics (5) Bilateral pulmonary embolism Current Visit: No Status: Chronic Plan to address problem: Had pulmonary embolism 7 months ago. As per pulmonology, patient needs indefinite anticoagulation Continue Eliquis 5 mg twice daily. (6) Sacral decubitus ulcer Current Visit: Yes Status: Acute Plan to address problem: This was present on admission Now status post wound debridement on 01/15. Wound vac in place Continue wound care ID consulted Surgery on board (7) Uncontrolled diabetes mellitus Current Visit: No Status: Acute Plan to address problem: DM management (8) Dementia Current Visit: No Status: Chronic Plan to address problem: Continue donepezil (9) Moderate protein-calorie malnutrition Current Visit: Yes Status: Acute Plan to address problem: She is not eating well and is getting feeds through the NG tube. Discussed with - this problem has been chronic and he is open to getting a PEG placement to supplement her intake PEG placed 01/13. Now on tube feeds 01/15. Tube feeds temporarily 01/16. Resumed tube feeding 01/17. Tolerating feeds. (10) DVT prophylaxis Current Visit: No Status: Acute Plan to address problem: On eliquis 5mg BID for PE treatment History Interval history: Patient seen and examined at bedside this morning. She is not in any distress. Labs reviewed. ID consulted Hospitalist Physical - Constitutional Vitals: Temp Pulse Resp BP Pulse Ox 97.8 F 129 H 16 95/38 100 01/19/20 04:42 01/19/20 04:42 01/19/20 04:42 01/19/20 10:49 01/19/20 04:42 General appearance: Present: no acute distress - EENT Eyes: Present: PERRL - Respiratory Respiratory: left: diminished - Cardiovascular Rhythm: regular Heart Sounds: Present: S1 & S2 - Extremities Extremity abnormal: edema - Abdominal General gastrointestinal: soft, non-tender, non-distended - Neurologic Neurologic: CNII-XII intact Results - Labs CBC & Chem 7: 01/18/20 07:31 01/18/20 07:31 Labs: Laboratory Last Values WBC 12.1 K/mm3 (4.5-11.0) H 01/18/20 07:31 RBC 3.23 M/mm3 (3.65-5.03) L 01/18/20 07:31 Hgb 9.7 gm/dl (10.1-14.3) L 01/18/20 07:31 Hct 28.7 % (30.3-42.9) L 01/18/20 07:31 MCV 89 fl (79-97) 01/18/20 07:31 MCH 30 pg (28-32) 01/18/20 07:31 MCHC 34 % (30-34) 01/18/20 07:31 RDW 14.7 % (13.2-15.2) 01/18/20 07:31 Plt Count 385 K/mm3 (140-440) 01/18/20 07:31 Lymph % (Auto) 9.2 % (13.4-35.0) L 01/18/20 07:31 [place] % (Auto) 4.5 % (0.0-7.3) 01/18/20 07:31 Eos % (Auto) 0.9 % (0.0-4.3) 01/18/20 07: Baso % (Auto) 0.4 % (0.0-1.8) 01/18/20 07: Lymph # 1.1 K/mm3 (1.2-5.4) L 01/18/20 07:31 [place] # 0.5 K/mm3 (0.0-0.8) 01/18/20 07: Eos # 0.1 K/mm3 (0.0-0.4) 01/18/20 07: Baso # 0.0 K/mm3 (0.0-0.1) 01/18/20 07:31 Add Manual Diff Complete 01/08/20 16:29 Total Counted 100 01/08/20 16:29 Seg Neutrophils % 85.0 % (40.0-70.0) H 01/18/20 07:31 Seg Neuts % (Manual) 85.0 % (40.0-70.0) H 01/08/20 16:29 Band Neutrophils % 0 % 01/08/20 16:29 Lymphocytes % (Manual) 11.0 % (13.4-35.0) L 01/08/20 16:29 Reactive Lymphs % (Man) 0 % 01/08/20 16:29 Monocytes % (Manual) 3.0 % (0.0-7.3) 01/08/20 16:29 Eosinophils % (Manual) 1.0 % (0.0-4.3) 01/08/20 16:29 Basophils % (Manual) 0 % (0.0-1.8) 01/08/20 16:29 Metamyelocytes % 0 % 01/08/20 16:29 Myelocytes % 0 % 01/08/20 16:29 Promyelocytes % 0 % 01/08/20 16:29 Blast Cells % 0 % 01/08/20 16:29 Nucleated RBC % Not Reportable 01/08/20 16:29 Seg Neutrophils # 10.3 K/mm3 (1.8-7.7) H 01/18/20 07:31 Seg Neutrophils # Man 11.5 K/mm3 (1.8-7.7) H 01/08/20 16:29 Band Neutrophils # 0.0 K/mm3 01/08/20 16:29 Lymphocytes # (Manual) 1.5 K/mm3 (1.2-5.4) 01/08/20 16:29 Abs React Lymphs (Man) 0.0 K/mm3 01/08/20 16: Monocytes # (Manual) 0.4 K/mm3 (0.0-0.8) 01/08/20 16:29 Eosinophils # (Manual) 0.1 K/mm3 (0.0-0.4) 01/08/20 16:29 Basophils # (Manual) 0.0 K/mm3 (0.0-0.1) 01/08/20 16:29 Metamyelocytes # 0.0 K/mm3 01/08/20 16:29 Myelocytes # 0.0 K/mm3 01/08/20 16:29 Promyelocytes # 0.0 K/mm3 01/08/20 16:29 Blast Cells # 0.0 K/mm3 01/08/20 16:29 WBC Morphology Not Reportable 01/08/20 16:29 Hypersegmented Neuts Not Reportable 01/08/20 16:29 Hyposegmented Neuts Not Reportable 01/08/20 16:29 Hypogranular Neuts Not Reportable 01/08/20 16:29 Smudge Cells Not Reportable 01/08/20 16:29 Toxic Granulation Not Reportable 01/08/20 16:29 Toxic Vacuolation Not Reportable 01/08/20 16:29 Dohle Bodies Not Reportable 01/08/20 16:29 Pelger-Huet Anomaly Not Reportable 01/08/20 16:29 Lata Rods Not Reportable 01/08/20 16:29 Platelet Estimate Not Reportable 01/08/20 16:29 Clumped Platelets Not Reportable 01/08/20 16:29 Plt Clumps, EDTA Not Reportable 01/08/20 16:29 Large Platelets Not Reportable 01/08/20 16:29 Giant Platelets Not Reportable 01/08/20 16:29 Platelet Satelliting Not Reportable 01/08/20 16:29 Plt Morphology Comment Not Reportable 01/08/20 16:29 RBC Morphology Normal 01/08/20 16:29 Dimorphic RBCs Not Reportable 01/08/20 16:29 Polychromasia Not Reportable 01/08/20 16:29 Hypochromasia Not Reportable 01/08/20 16:29 Poikilocytosis Not Reportable 01/08/20 16:29 Anisocytosis Not Reportable 01/08/20 16:29 Microcytosis Not Reportable 01/08/20 16:29 Macrocytosis Not Reportable 01/08/20 16:29 Spherocytes Not Reportable 01/08/20 16:29 Pappenheimer Bodies Not Reportable 01/08/20 16:29 Sickle Cells Not Reportable 01/08/20 16:29 Target Cells Not Reportable 01/08/20 16:29 Tear Drop Cells Not Reportable 01/08/20 16:29 Ovalocytes Not Reportable 01/08/20 16:29 Helmet Cells Not Reportable 01/08/20 16:29 Lombardi-Ursa Bodies Not Reportable 01/08/20 16:29 [place] Rings Not Reportable 01/08/20 16:29 [place] Cells Not Reportable 01/08/20 16:29 Bite Cells Not Reportable 01/08/20 16:29 Crenated Cell Not Reportable 01/08/20 16:29 Elliptocytes Not Reportable 01/08/20 16:29 Acanthocytes (Spur) Not Reportable 01/08/20 16:29 Rouleaux Not Reportable 01/08/20 16:29 Hemoglobin C Crystals Not Reportable 01/08/20 16:29 Schistocytes Not Reportable 01/08/20 16:29 Malaria parasites Not Reportable 01/08/20 16:29 Gideon Bodies Not Reportable 01/08/20 16:29 Hem Pathologist Commnt No 01/08/20 16:29 PT 15.8 Sec. (12.2-14.9) H 01/14/20 11:01 INR 1.23 (0.87-1.13) H 01/14/20 11:01 APTT 34.4 Sec. (24.2-36.6) 01/14/20 11:01 Sodium 142 mmol/L (137-145) 01/18/20 07:31 Potassium 4.6 mmol/L (3.6-5.0) D 01/18/20 07:31 Chloride 106.3 mmol/L (98-107) 01/18/20 07:31 Carbon Dioxide 25 mmol/L (22-30) 01/18/20 07:31 Anion Gap 15 mmol/L 01/18/20 07:31 BUN 15 mg/dL (7-17) 01/18/20 07:31 Creatinine 0.4 mg/dL (0.6-1.2) L 01/18/20 07:31 Estimated GFR > 60 ml/min 01/18/20 07:31 BUN/Creatinine Ratio 38 % 01/18/20 07:31 Glucose 108 mg/dL (65-100) H 01/18/20 07:31 POC Glucose 163 (70-105) H 01/19/20 11:30 Hemoglobin A1c 5.3 % (4-6) 01/11/20 00:45 Lactic Acid 1.20 mmol/L (0.7-2.0) 01/09/20 05:52 Calcium 8.5 mg/dL (8.4-10.2) 01/18/20 07:31 Magnesium 2.10 mg/dL (1.7-2.3) 01/10/20 05:23 Total Bilirubin 0.40 mg/dL (0.1-1.2) 01/18/20 07:31 AST 19 units/L (5-40) 01/18/20 07:31 ALT 14 units/L (7-56) 01/18/20 07:31 Alkaline Phosphatase 54 units/L (35-129) 01/18/20 07:31 Total Protein 5.3 g/dL (6.3-8.2) L 01/18/20 07:31 Albumin 2.1 g/dL (3.9-5) L 01/18/20 07:31 Albumin/Globulin Ratio 0.7 % 01/18/20 07:31 TSH 2.440 mlU/mL (0.270-4.200) 01/10/20 10:10 Urine Color [place]elia (Yellow) 01/08/20 Unknown Urine Turbidity Cloudy (Clear) 01/08/20 Unknown Urine pH 5.0 (5.0-7.0) 01/08/20 Unknown Ur Specific [place] 1.018 (1.003-1.030) 01/08/20 Unknown Urine Protein 30 mg/dl mg/dL (Negative) 01/08/20 Unknown Urine Glucose (UA) Neg mg/dL (Negative) 01/08/20 Unknown Urine Ketones Neg mg/dL (Negative) 01/08/20 Unknown Urine Blood Mod (Negative) 01/08/20 Unknown Urine Nitrite Neg (Negative) 01/08/20 Unknown Urine Bilirubin Neg (Negative) 01/08/20 Unknown Urine Urobilinogen < 2.0 mg/dL (<2.0) 01/08/20 Unknown Ur Leukocyte Esterase Sm (Negative) 01/08/20 Unknown Urine WBC (Auto) 11.0 /HPF (0.0-6.0) H 01/08/20 Unknown Urine RBC (Auto) 7.0 /HPF (0.0-6.0) 01/08/20 Unknown U Epithel Cells (Auto) < 1.0 /HPF (0-13.0) 01/08/20 Unknown Urine Bacteria (Auto) 1+ /HPF (Negative) 01/08/20 Unknown Urine Mucus 2+ /HPF 01/08/20 Unknown Urine Yeast (Budding) 1+ /HPF 01/08/20 Unknown Vancomycin Trough 7.9 ug/mL (5.0-20.0) 01/17/20 16:04 Microbiology: Microbiology 01/16/20 Unknown Back Surgical Culture - Preliminary Proteus Mirabilis Enterococcus Species 01/16/20 Unknown Back Anaerobic Culture - Preliminary Mejía/IV: Voiding Method Incontinent IV Catheter Type [Right Peripheral IV Forearm] Active Medications - Current Medications Current Medications: Generic Name Dose Route Start Last Admin Trade Name Freq PRN Reason Stop Dose Admin Acetaminophen 650 mg 01/08/20 23:14 01/18/20 06:03 Tylenol PO 650 mg Q4H PRN Administration Pain MILD(1-3)/Fever >100.5/GARCIA Lipase/Protease/Amylase 1 each 01/17/20 08:[address] 10,500 Unit FEEDTUBE PRN PRN For Clogged Feeding Tube Apixaban 5 mg 01/18/20 10:00 01/19/20 10:43 Eliquis PO 5 mg Q12HR BRO Administration Protocol Atorvastatin Calcium 10 mg 01/09/20 22:00 01/18/20 21:55 Atorvastatin PO 10 mg QHS BRO Administration Dextrose 0 ml 01/08/20 23:14 01/14/20 21:54 D50w (25gm) Syringe IV 20 ml Q30MIN PRN Administration Hypoglycemia Protocol Donepezil HCl 10 mg 01/09/20 22:00 01/18/20 21:56 Aricept PO 10 mg QHS BRO Administration Sodium Chloride 1,000 mls @ 60 mls/hr 01/18/20 06:00 01/18/20 22:43 Nacl 0.9% 1000 Ml IV 125 mls/hr DIRECT BRO Administration Piperacillin Sod/Tazobactam Sod 4.5 gm in 100 mls @ 200 mls/hr 01/19/20 14:00 Zosyn/Ns 4.5gm/100ml IV Q8HR BRO Protocol Magnesium Hydroxide 30 ml 01/08/20 23:14 Milk Of Magnesia PO Q4H PRN Constipation Megestrol Acetate 400 mg 01/12/20 11:00 01/19/20 10:44 Megestrol PO 400 mg QDAY BRO Administration Metoprolol Tartrate 12.5 mg 01/18/20 10:00 01/19/20 10:49 Metoprolol PO Not Given BID BRO Mirtazapine 15 mg 01/09/20 22:00 01/18/20 21:55 Remeron PO 15 mg QHS BRO Administration Ondansetron HCl 4 mg 01/08/20 23:14 Zofran IV Q8H PRN Nausea And Vomiting Simple Syrup 15 ml 01/17/20 08:37 Simple Syrup FEEDTUBE PRN PRN Hypoglycemia Simple Syrup 30 ml 01/17/20 08:37 Simple Syrup FEEDTUBE PRN PRN Hypoglycemia Sodium Bicarbonate 325 mg 01/17/20 08:37 Sodium Bicarbonate FEEDTUBE PRN PRN For Clogged Feeding Tube Sodium Chloride 10 ml 01/09/20 10:00 01/19/20 10:49 Sodium Chloride Flush Syringe 10 Ml IV Not Given BID BRO Sodium Chloride 10 ml 01/08/20 23:14 Sodium Chloride Flush Syringe 10 Ml IV PRN PRN LINE FLUSH Trazodone HCl 25 mg 01/09/20 22:00 01/18/20 21:55 Desyrel PO 25 mg QHS BRO Administration Nutrition/Malnutrition Assess - Dietary Evaluation Nutrition/Malnutrition Findings: Nutrition Notes Start: 01/09/20 12:13 Freq: Status: Active Protocol: Document 01/19/20 11:30 LM (Rec: 01/19/20 11:41 LM [id number]) Nutrition Notes Initial or Follow up Reassessment Current Diagnosis Decubitus(Pressure Ulcer), Diabetes,Sepsis Other Pertinent Diagnosis UTI, dementia, PE, Sacral wound Current Diet Bolus Jevity 5 cans/day Labs/Tests Reviewed Pertinent Medications Reviewed Height 5 ft 2 in Weight 51.1 kg Aurelia Body Weight (kg) 50.00 BMI 20.6 Weight change and time frame Wt gain noted. Pt has edema. Subjective/Other Information Per RN notes pt is tolerating bolus TF. 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 No Is Patient Ambulatory and/or Out of Bed No REE-([facility]-confined to bed) 1187.208 Kcal/Kg value to use for calculation 31 Approximate Energy Requirements Using 1584 kcal/Kg Calculation Used for Recommendations Kcal/kg Additional Notes Protein needs are 53-67 g (1.2 -1.5 g/kg) Fluid needs are 1 ml/kcal Nutrition Intervention Change Diet Order: TF Nutrition Support: Jevity 1.2, 5 cans/day B - 1 can (237 ml) L - 2 cans (474 ml) D - 2 cans (474 ml) Flush 80 ml before and after each feeding Kcal 1,425 Protein (gm) 66 Fluid (mL) 955 Goal #1 Meet at least 80% of kcal and protein needs via TF Goal #2 TF tolerance Anticipated Discharge Needs: Jevity 1.2, 5 cans/day B - 1 can (237 ml) L - 2 cans (474 ml) D - 2 cans (474 ml) Flush 80 ml before and after each feeding Follow-Up By: 01/23/20 Additional Comments F/U for TF tolerance
[2020-01-19] MEDS: PIPERACIL/TAZOBACTA 4.5/NS 100 4.5 GM/100 ML VIAL IV SCH ×2 (14:52→22:47)
[2020-01-19] MEDS: SODIUM CHLORIDE 0.9% 1000 ML 1,000 ML IV SCH (22:48)
[2020-01-19] MEDS: traZODone 50 MG TAB PO SCH (22:49)
[2020-01-19] MEDS: MIRTAZAPINE 15 MG TAB PO SCH (22:49)
[2020-01-19] MEDS: DONEPEZIL 10 MG TAB PO SCH (22:49)
[2020-01-20] MEDS: PIPERACIL/TAZOBACTA 4.5/NS 100 4.5 GM/100 ML VIAL IV SCH ×3 (05:11→23:43)
[2020-01-20 06:32] LABS: Hemoglobin 8.4 gm/dl (10.1-14.3); Mean Corpuscular HGB Conc 34 % (30-34); Mean Corpuscular Volume 90 fl (79-97); Platelet Count 371 K/mm3 (140-440); Red Blood Count 2.77 M/mm3 (3.65-5.03); Red Cell Distribution Width 14.2 % (13.2-15.2)
[2020-01-20 06:38] LABS: Basophils # (Auto) 0.1 K/mm3 (0.0-0.1); Basophils % (Auto) 0.7 % (0.0-1.8); Eosinophils # (Auto) 0.3 K/mm3 (0.0-0.4); Eosinophils % (Auto) 2.4 % (0.0-4.3); Lymphocytes % (Auto) 17.5 % (13.4-35.0); Monocytes # (Auto) 0.5 K/mm3 (0.0-0.8); Monocytes % (Auto) 4.8 % (0.0-7.3)
[2020-01-20 06:40] LABS: Alanine Aminotransferase 11 units/L (7-56); Albumin 1.9 g/dL (3.9-5); Blood Urea Nitrogen 17 mg/dL (7-17); Calcium 7.9 mg/dL (8.4-10.2); Hemolysis Index 42
[2020-01-20 06:48] LABS: BUN/Creatinine Ratio 43
--- NOTE | 2020-01-20 08:02 | XRay Report ---
CHEST 1 VIEW INDICATION: chest tube on waterseal - check for PTX. COMPARISON: Previous day. FINDINGS: Support devices: Left chest tube unchanged. No pneumothorax. Heart: Within normal limits. Lungs/Pleura: Improving aeration left base. Increasing volume loss right base. Additional findings: None. IMPRESSION: 1. Improving aeration left base. 2. Increasing volume loss right base. Signer Name: Nadeem Solis MD Signed: 01/20/2020 7:57 AM Workstation Name: [id number]
--- NOTE | 2020-01-20 10:00 | Progress Note ---
Assessment and Plan Cultures: Blood cultures 01/08/2020 MDR Proteus mirabilis. Blood culture 01/12/2020 no growth. Urine culture 01/08/2020 no growth. Tissue culture 01/16/2020 MDR Proteus and enterococcus A/P: 69 years old female with history of diabetes mellitus, pulmonary embolism, dementia, admitted on 01/08/2020 due to altered mental status, lethargy and hypotension. Patient was evaluated by her home health nurse who found her less active and hypotensive: #Sepsis: Present on admission with fever, tachycardia, leukocytosis, secondary to bacteremia and sacral decubitus infection. #MDR Proteus bacteremia: Likely from sacral decubitus' #Unstageable sacral decubitus, infected: Status post or debridement on 01/16/2020, tissue cultures growing MDR Proteus and enterococcus. OR findings extensive fascial necrosis. Discussed with Dr Vo likely osteomyelitis. #Mild UTI #Left sided Pneumothorax: Status post chest tube placement #Acute hypoxemic respiratory failure: Likely secondary to pneumothorax, on ventimask Recs:- -Continue Zosyn 4.5 g IV every 8 hours -Offloading of sacral area/heels is the mainstay stain therapy for this condition -Chest tube per surgery -Wound care and wound VAC per surgery -Case management discussed with family and they want everything to be done, overall poor prognosis, bedbound, will arrange zosyn 4.5 g IV every 8 hours total 6 weeks till 02/27/2020. PICC line should be placed. Risk for prolonged antibiotic therapy including Cdiff, other resistant bacteria is higher. Rosalina Roberts MD [facility] C: [phone] O: [phone] Subjective Date of service: 01/20/20 Principal diagnosis: Bacteremia Interval history: Remains nonverbal open eyes, no fever, more alert Objective - Exam Narrative Exam: Physical Exam: Constitutional: alert non verbal on ventimask Head, Ears, Nose: Normocephalic, atraumatic. External ears, nose normal Eyes: Conjunctivae/corneas clear. No icterus. No ptosis. Neck: Supple, no meningeal signs Cardiovascular: S1, S2 normal. Respiratory: decreased BS, left sided chest tube GI: Soft, non-tender Musculoskeletal: jade upper extremities and lower extremities edema Skin: sacral wound w wound VAC Hem/Lymphatic: No palpable cervical or supraclavicular nodes. No lymphangitis Psych: no agitated Neurological: alert alternating with somnolence non verbal Per wound care: Right heel with deep tissue injury, measures 6 x 4 x 0.1 cm. Sacrum unstageable pressure injury, measures 8 x 6.5 x 0.4 cm. Now with a wound VAC. - Constitutional Vitals: Vital Signs Temp Pulse Resp BP Pulse Ox 98.7 F 129 H 20 107/63 99 01/20/20 04:53 01/20/20 04:53 01/20/20 04:53 01/20/20 04:53 01/20/20 04:53 Temperature -Last 24 Hours Temperature 98.7 F Temperature 99.2 F Temperature 98.7 F Temperature 97.3 F - Labs CBC & Chem 7: 01/20/20 03:44 01/20/20 03:44 Labs: Abnormal lab results 01/19/20 01/19/20 01/19/20 Range/Units 11:30 17:44 22:59 WBC (4.5-11.0) K/mm3 RBC (3.65-5.03) M/mm3 Hgb (10.1-14.3) gm/dl Hct (30.3-42.9) % Seg Neutrophils % (40.0-70.0) % Seg Neutrophils # (1.8-7.7) K/mm3 Creatinine (0.6-1.2) mg/dL POC Glucose 163 H 161 H 182 H (70-105) Calcium (8.4-10.2) mg/dL Total Protein (6.3-8.2) g/dL Albumin (3.9-5) g/dL 01/20/20 01/20/20 Range/Units 03:44 03:44 WBC 11.1 H (4.5-11.0) K/mm3 RBC 2.77 L (3.65-5.03) M/mm3 Hgb 8.4 L (10.1-14.3) gm/dl Hct 25.0 L (30.3-42.9) % Seg Neutrophils % 74.6 H (40.0-70.0) % Seg Neutrophils # 8.3 H (1.8-7.7) K/mm3 Creatinine 0.4 L (0.6-1.2) mg/dL POC Glucose (70-105) Calcium 7.9 L (8.4-10.2) mg/dL Total Protein 4.7 L (6.3-8.2) g/dL Albumin 1.9 L (3.9-5) g/dL
[2020-01-20] MEDS: METOPROLOL TARTRATE 25 MG TAB PO SCH ×2 (10:10→23:46)
[2020-01-20] MEDS: APIXABAN 5 MG TAB PO SCH ×2 (10:10→23:46)
[2020-01-20] MEDS: MEGESTROL 400 MG/10 ML ORAL LIQD PO SCH (10:10)
--- NOTE | 2020-01-20 10:50 | Progress Note ---
Assessment and Plan 69 yo F s/p sacral wound debridement and chest tube placement, POD 4 CXR 01/20/20 - no PTX. L chest tube in place Plan: 1. May resume Eliquis after next wound VAC change if there is minimal bleeding. Wound vac to be changed today per RN notes. 2. continue chest tube to waterseal. No PTX on CXR but there is still moderate drainage. Once drainage trends down, will remove chest tube. 3. offloading 4. optimize nutrition 5. poor prognosis for wound healing Thank you, please call with questions. Subjective Date of service: 01/20/20 Narrative: Pt seen and examined. No overnight events notes. Objective Vital Signs - 12hr 01/20/20 01/20/20 04:53 10:10 Temperature 98.7 F Pulse Rate 129 H 129 H Respiratory 20 Rate Blood Pressure 107/63 O2 Sat by Pulse 99 Oximetry - General physical appearance Narrative Exam: Gen: Awake, does not respond to commands CV; S1, S2+ resp: even and unlabored. Left chest tube in place to water seal with serous drainage in tubing and canister. No air leak. Dressing changed Sacrum: wound vac in place with good seal and no leak. Serosang drainage Charted I/Os: L CT - 300cc/24hr WV - 360cc/24hr - Labs 01/20/20 03:44 01/20/20 03:44 Diabetes panel 01/20/20 Range/Units 03:44 Sodium 141 (137-145) mmol/L Potassium 4.9 (3.6-5.0) mmol/L Chloride 106.0 (98-107) mmol/L Carbon Dioxide 23 (22-30) mmol/L BUN 17 (7-17) mg/dL Creatinine 0.4 L (0.6-1.2) mg/dL Glucose 75 (65-100) mg/dL Calcium 7.9 L (8.4-10.2) mg/dL AST 19 (5-40) units/L ALT 11 (7-56) units/L Alkaline Phosphatase 43 (35-129) units/L Total Protein 4.7 L (6.3-8.2) g/dL Albumin 1.9 L (3.9-5) g/dL Calcium panel 01/20/20 Range/Units 03:44 Calcium 7.9 L (8.4-10.2) mg/dL Albumin 1.9 L (3.9-5) g/dL Pituitary panel 01/20/20 Range/Units 03:44 Sodium 141 (137-145) mmol/L Potassium 4.9 (3.6-5.0) mmol/L Chloride 106.0 (98-107) mmol/L Carbon Dioxide 23 (22-30) mmol/L BUN 17 (7-17) mg/dL Creatinine 0.4 L (0.6-1.2) mg/dL Glucose 75 (65-100) mg/dL Calcium 7.9 L (8.4-10.2) mg/dL Adrenal panel 01/20/20 Range/Units 03:44 Sodium 141 (137-145) mmol/L Potassium 4.9 (3.6-5.0) mmol/L Chloride 106.0 (98-107) mmol/L Carbon Dioxide 23 (22-30) mmol/L BUN 17 (7-17) mg/dL Creatinine 0.4 L (0.6-1.2) mg/dL Glucose 75 (65-100) mg/dL Calcium 7.9 L (8.4-10.2) mg/dL Total Bilirubin 0.40 (0.1-1.2) mg/dL AST 19 (5-40) units/L ALT 11 (7-56) units/L Alkaline Phosphatase 43 (35-129) units/L Total Protein 4.7 L (6.3-8.2) g/dL Albumin 1.9 L (3.9-5) g/dL
--- NOTE | 2020-01-20 11:10 | Progress Note ---
Assessment and Plan Reflex sinus tachycardia TSH is 2.4 Left hydropneumothorax AMS Sepsis Hx of PE -on eliquis for anticoagulation Sacral wound s/p debridement Dementia Sinus tachycardia is a physiologic response to the multiple acute surgical and medical conditions that are ongoing with this patient. Sinus rate should return to normal when these conditions optimize. No specific treatment is indicated for sinus tachycardia other than optimal management of the primary cause. We will follow intermittently. Subjective Date of service: 01/20/20 Principal diagnosis: Bacteremia Interval history: Sinus tachycardia on telemetry. No arrhythmias reported. Objective Vital Signs Temp Pulse Resp BP Pulse Ox 01/20/20 10:10 129 H 01/20/20 04:53 98.7 F 129 H 20 107/63 99 01/19/20 22:45 99.2 F 127 H 20 107/57 100 01/19/20 17:27 98.7 F 117 H 22 95/54 99 01/19/20 15:59 128 H 01/19/20 11:12 97.3 F L 128 H 18 97/54 100 - Physical Examination General: No Apparent Distress HEENT: Positive: PERRL Cardiac: Positive: Tachycardia Abdomen: Positive: Other (PEG) - Labs and Meds Cardiac Enzymes 01/20/20 Range/Units 03:44 AST 19 (5-40) units/L CBC 01/20/20 Range/Units 03:44 WBC 11.1 H (4.5-11.0) K/mm3 RBC 2.77 L (3.65-5.03) M/mm3 Hgb 8.4 L (10.1-14.3) gm/dl Hct 25.0 L (30.3-42.9) % Plt Count 371 (140-440) K/mm3 Lymph # 2.0 (1.2-5.4) K/mm3 [place] # 0.5 (0.0-0.8) K/mm3 Eos # 0.3 (0.0-0.4) K/mm3 Baso # 0.1 (0.0-0.1) K/mm3 Comprehensive Metabolic Panel 01/20/20 Range/Units 03:44 Sodium 141 (137-145) mmol/L Potassium 4.9 (3.6-5.0) mmol/L Chloride 106.0 (98-107) mmol/L Carbon Dioxide 23 (22-30) mmol/L BUN 17 (7-17) mg/dL Creatinine 0.4 L (0.6-1.2) mg/dL Glucose 75 (65-100) mg/dL Calcium 7.9 L (8.4-10.2) mg/dL AST 19 (5-40) units/L ALT 11 (7-56) units/L Alkaline Phosphatase 43 (35-129) units/L Total Protein 4.7 L (6.3-8.2) g/dL Albumin 1.9 L (3.9-5) g/dL
--- NOTE | 2020-01-20 16:57 | Progress Note ---
Assessment and Plan -- Hydropneumothorax, not POA Patient developed hydropneumothorax on 01/15. Surgery consulted and patient had a chest tube placed on 01/15. Surgery following. Chest x-ray performed on 01/16 showed no significant change of pneumothorax --Acute respiratory failure, not POA likely from Hydropneumothorax cont supplemental O2 to keep o2 sat >94 -- Hypernatremia, Resolved -- Sepsis, likely UTI and infected Sacral decubitus ulcer On zosyn Monitor vital signs closely -- UTI (urinary tract infection) Continue antibiotics -- Bilateral pulmonary embolism Had pulmonary embolism 7 months ago. As per pulmonology, patient needs indefinite anticoagulation Continue Eliquis 5 mg twice daily. --Sacral decubitus ulcer, infected This was present on admission Now status post wound debridement on 01/15. Wound vac in place Continue wound care ID consulted Surgery on board -- Uncontrolled diabetes mellitus DM management with SSI, TF -- Dementia Continue donepezil -- Moderate protein-calorie malnutrition She is not eating well and is getting feeds through the NG tube. Discussed with - this problem has been chronic and he is open to getting a PEG placement to supplement her intake PEG placed 01/13. Now on tube feeds 01/15. Tube feeds temporarily 01/16. Resumed tube feeding 01/17. Tolerating feeds. -- DVT prophylaxis On eliquis 5mg BID for PE treatment Brief history: Patient is a 69-year-old -[place] female with known history of dementia, diabetes mellitus and pulmonary embolism was brought into the emergency room for decreased responsiveness, lethargy and hypotension. According to home health nurse patient has become less active and blood pressure was said to be low. She was brought to the emergency room for evaluation. Further history cannot be obtained from patient. Upon arrival in the emergency room patient had a low-grade fever. Work-up in the emergency room reveals elevated white blood cell count of 13.5, elevated BUN and creatinine 30 and 1.1 respectively. Found to be dehydrated and hypernatremic. Urinalysis shows UTI. Patient subsequently started on IV fluid and empiric IV antibiotics admitted for further evaluation. 01/08. Patient seen and examined at bedside this month. Patient not talking much this morning. Discussed case with patient spouse [patient usually does not talk much due to possible underlying dementia]. Started patient on her home medications today. Sodium slightly elevated from yesterday-162. Switch to hypotonic solution after resuscitation. Monitor BMP 01/09. More awake today. Sodium is improving. Has tachycardia today. Received a dose of metoprolol and is on telemetry. No arrhythmias noted. Has no congestion on chest xray. Will continue IV hydration for now. She needs assistance with meals due to advanced dementia. 01/10. Sodium is improving, will speak to family about diet and possible NGT and medication, Her dementia may be the prohibiting factor. Anticipate discharge in 24 to 48 hrs. ?IF SHE IS BEDBOUND. Continue Antibiotics. 01/11. Patient seen and examined at bedside this morning. She is not eating. Discussed with patients - plan for PEG placement. GI consulted. Blood culture from 01/07 grew GN rods. Repeat Blood culture sent. She is on ceftriaxone. Her sodium level is improving gradually. 01/12. Plan for tube placement. GI on board. 01/13. Patient had temperature 101 overnight. Patient has been on appropriate antibiotics for UTI. Urine culture has been reviewed. This point need to evaluate for other etiology of fever. Surgery consulted for evaluation for need for wound debridement. Plan for PEG tube placement today. 01/14. PEG tube placed. Surgery and ID on board. Plan for wound debridement as per surgery 01/15. Plan for debridement today as per surgery. 01/15 2pm. Patient noted to be tachycardic and slightly hypoxic after having sacral decubitus debridement. She was placed on Ventimask. EKG performed for tachycardia shows sinus tachycardia. Patient received bolus 500 cc and 1 dose of metoprolol with slight improvement. Stat chest x-ray performed shows new small to moderate hydropneumothorax. Discussed with principal accounts clerk. Patient had a left-sided chest tube placed by surgery for pneumothorax. 01/16. Patient seen and examined at bedside this morning. Patient is awake looks comfortable. Has left-sided chest tube in place. Repeat x-ray ordered this morning and it shows no significant change from yesterday. Surgery is following for chest tube management. Will discuss with today Plan to resume Eliquis when okay with surgery 01/17. No change in medical condition. She is still tachy. Cardiology evaluation appreciated. Wound vac to sacral wound in place. Left chest tube in place. Surgery following. Ordered one dose of albumin today. I updated patients this PM. ID consulted 01/18. Antibiotics switched to zosyn. Duration of antibiotics to be determined. 01/19; Chest Tube placed on waterseal today, plan to repeat CXR tomorrow. patient on wound vac and ventimask Subjective Date of service: 01/20/20 Principal diagnosis: Bacteremia Interval history: Patient seen and examined On ventimask, with left sided chest tube does not follow commend Objective - Exam Narrative Exam: General appearance: Present: no acute distress - EENT Eyes: Present: PERRL - Respiratory Respiratory: left: diminished, with chest tube - Cardiovascular Rhythm: regular Heart Sounds: Present: S1 & S2 - Extremities Extremity abnormal: edema - Abdominal General gastrointestinal: soft, non-tender, non-distended - Neurologic Neurologic: does not follow commend, patient appears lethargic Extremity: UE edema - Constitutional Vitals: Vital Signs - 12hr 01/20/20 01/20/20 04:53 10:10 Temperature 98.7 F Pulse Rate 129 H 129 H Respiratory 20 Rate Blood Pressure 107/63 O2 Sat by Pulse 99 Oximetry - Labs CBC & Chem 7: 01/21/20 05:51 01/21/20 05:51 Labs: Abnormal lab results 01/19/20 01/19/20 01/20/20 Range/Units 17:44 22:59 03:44 WBC 11.1 H (4.5-11.0) K/mm3 RBC 2.77 L (3.65-5.03) M/mm3 Hgb 8.4 L (10.1-14.3) gm/dl Hct 25.0 L (30.3-42.9) % Seg Neutrophils % 74.6 H (40.0-70.0) % Seg Neutrophils # 8.3 H (1.8-7.7) K/mm3 Creatinine (0.6-1.2) mg/dL POC Glucose 161 H 182 H (70-105) Calcium (8.4-10.2) mg/dL Total Protein (6.3-8.2) g/dL Albumin (3.9-5) g/dL 01/20/20 Range/Units 03:44 WBC (4.5-11.0) K/mm3 RBC (3.65-5.03) M/mm3 Hgb (10.1-14.3) gm/dl Hct (30.3-42.9) % Seg Neutrophils % (40.0-70.0) % Seg Neutrophils # (1.8-7.7) K/mm3 Creatinine 0.4 L (0.6-1.2) mg/dL POC Glucose (70-105) Calcium 7.9 L (8.4-10.2) mg/dL Total Protein 4.7 L (6.3-8.2) g/dL Albumin 1.9 L (3.9-5) g/dL
[2020-01-20] MEDS: traZODone 50 MG TAB PO SCH (23:43)
[2020-01-20] MEDS: DONEPEZIL 10 MG TAB PO SCH (23:45)
[2020-01-20] MEDS: MIRTAZAPINE 15 MG TAB PO SCH (23:46)
[2020-01-21] MEDS: DEXTROSE 50% IN WATER (25GM) 50 ML SYRINGE IV PRN (00:13)
[2020-01-21 06:01] LABS: Hematocrit 25.5 % (30.3-42.9); Hemoglobin 8.6 gm/dl (10.1-14.3); Mean Corpuscular HGB Conc 34 % (30-34); Mean Corpuscular Volume 90 fl (79-97); Platelet Count 463 K/mm3 (140-440); Red Blood Count 2.84 M/mm3 (3.65-5.03); Red Cell Distribution Width 14.6 % (13.2-15.2)
[2020-01-21 06:06] LABS: Lymphocytes % (Auto) 16.1 % (13.4-35.0)
[2020-01-21 06:07] LABS: Basophils % (Auto) 0.3 % (0.0-1.8); Eosinophils # (Auto) 0.1 K/mm3 (0.0-0.4); Eosinophils % (Auto) 1.4 % (0.0-4.3); Lymphocytes # (Auto) 1.6 K/mm3 (1.2-5.4); Monocytes # (Auto) 0.5 K/mm3 (0.0-0.8); Monocytes % (Auto) 5.3 % (0.0-7.3)
[2020-01-21 06:23] LABS: Alanine Aminotransferase 15 units/L (7-56); Albumin 1.9 g/dL (3.9-5); Blood Urea Nitrogen 17 mg/dL (7-17); Calcium 7.6 mg/dL (8.4-10.2); Hemolysis Index 134
[2020-01-21 06:24] LABS: BUN/Creatinine Ratio 34
[2020-01-21] MEDS: SODIUM CHLORIDE 0.9% 1000 ML 1,000 ML IV SCH (08:48)
--- NOTE | 2020-01-21 09:15 | Progress Note ---
Assessment and Plan Reflex sinus tachycardia TSH is 2.4 Left hydropneumothorax AMS Sepsis Hx of PE -on eliquis for anticoagulation Sacral wound s/p debridement Dementia Sinus tachycardia is a physiologic response to the multiple acute surgical and medical conditions that are ongoing with this patient. Sinus rate should return to normal when these conditions optimize. No specific treatment is indicated for sinus tachycardia other than optimal management of the primary cause. We will follow intermittently. Subjective Date of service: 01/21/20 Principal diagnosis: Bacteremia Interval history: Patient is non-verbal. No interval cardiac changes. Objective Vital Signs Temp Pulse Resp BP Pulse Ox 01/21/20 05:23 98.6 F 81 18 93/59 100 01/20/20 21:34 97.6 F 105 H 20 111/58 100 01/20/20 16:08 98.0 F 103 H 20 106/30 100 01/20/20 10:10 129 H - Physical Examination General: No Apparent Distress HEENT: Positive: PERRL Neck: Positive: neck supple Cardiac: Positive: Tachycardia Abdomen: Positive: Other (PEG) Extremities: Present: edema (NO) - Labs and Meds Cardiac Enzymes 01/21/20 Range/Units 05:51 AST 33 (5-40) units/L CBC 01/21/20 Range/Units 05:51 WBC 10.1 (4.5-11.0) K/mm3 RBC 2.84 L (3.65-5.03) M/mm3 Hgb 8.6 L (10.1-14.3) gm/dl Hct 25.5 L (30.3-42.9) % Plt Count 463 H (140-440) K/mm3 Lymph # 1.6 (1.2-5.4) K/mm3 [place] # 0.5 (0.0-0.8) K/mm3 Eos # 0.1 (0.0-0.4) K/mm3 Baso # 0.0 (0.0-0.1) K/mm3 Comprehensive Metabolic Panel 01/21/20 Range/Units 05:51 Sodium 137 (137-145) mmol/L Potassium 4.6 (3.6-5.0) mmol/L Chloride 105.0 (98-107) mmol/L Carbon Dioxide 20 L (22-30) mmol/L BUN 17 (7-17) mg/dL Creatinine 0.5 L (0.6-1.2) mg/dL Glucose 130 H (65-100) mg/dL Calcium 7.6 L (8.4-10.2) mg/dL AST 33 (5-40) units/L ALT 15 (7-56) units/L Alkaline Phosphatase 52 (35-129) units/L Total Protein 5.0 L (6.3-8.2) g/dL Albumin 1.9 L (3.9-5) g/dL
[2020-01-21] MEDS: MEGESTROL 400 MG/10 ML ORAL LIQD PO SCH (09:43)
[2020-01-21] MEDS: APIXABAN 5 MG TAB PO SCH ×2 (09:43→22:11)
[2020-01-21] MEDS: METOPROLOL TARTRATE 25 MG TAB PO SCH ×2 (09:43→22:08)
--- NOTE | 2020-01-21 13:44 | Progress Note ---
Assessment and Plan 69 yo F s/p sacral wound debridement and chest tube placement, POD 4 CXR 01/20/20 - no PTX. L chest tube in place Plan: 1. wound vac changed yesterday. Photos reviewed. continue wound vac to -125mmHg suction 2. continue chest tube to waterseal. repeat CXR in am 3. Chest tube still with moderate serous drainage - Per RN notes and I/Os in [place], output has been >600cc/24 hours. This may be inaccurate as from my PE yesterday, there was 1L in the collection chamber and now it is at 1275cc making the total output 275cc/24h+. Will trend output for one more day and dc CT if trending down. 4. offloading 5. optimize nutrition 6. poor prognosis for wound healing Thank you, please call with questions. Subjective Date of service: 01/21/20 Narrative: Patient seen in follow-up. No overnight events noted. Objective Vital Signs - 12hr 01/21/20 01/21/20 01/21/20 05:23 09:43 11:10 Temperature 98.6 F 98.3 F Pulse Rate 81 109 H 101 H Respiratory 18 20 Rate Blood Pressure 93/59 121/63 116/67 O2 Sat by Pulse 100 100 Oximetry - General physical appearance Narrative Exam: Gen.: Sleeping comfortably. Not responsive at baseline. No apparent distress ENT: Trachea midline. No lymphadenopathy. CV: S1, S2 present Respiratory: No audible wheezes. L Chest tube in place with serous output in collection chamber. CT to water seal, no leak. Abdomen: Soft, nondistended, nontender. No rebound, rigidity, guarding Sacrum - wound vac present with good seal - Labs 01/21/20 05:51 01/21/20 05:51 Diabetes panel 01/21/20 Range/Units 05:51 Sodium 137 (137-145) mmol/L Potassium 4.6 (3.6-5.0) mmol/L Chloride 105.0 (98-107) mmol/L Carbon Dioxide 20 L (22-30) mmol/L BUN 17 (7-17) mg/dL Creatinine 0.5 L (0.6-1.2) mg/dL Glucose 130 H (65-100) mg/dL Calcium 7.6 L (8.4-10.2) mg/dL AST 33 (5-40) units/L ALT 15 (7-56) units/L Alkaline Phosphatase 52 (35-129) units/L Total Protein 5.0 L (6.3-8.2) g/dL Albumin 1.9 L (3.9-5) g/dL Calcium panel 01/21/20 Range/Units 05:51 Calcium 7.6 L (8.4-10.2) mg/dL Albumin 1.9 L (3.9-5) g/dL Pituitary panel 01/21/20 Range/Units 05:51 Sodium 137 (137-145) mmol/L Potassium 4.6 (3.6-5.0) mmol/L Chloride 105.0 (98-107) mmol/L Carbon Dioxide 20 L (22-30) mmol/L BUN 17 (7-17) mg/dL Creatinine 0.5 L (0.6-1.2) mg/dL Glucose 130 H (65-100) mg/dL Calcium 7.6 L (8.4-10.2) mg/dL Adrenal panel 01/21/20 Range/Units 05:51 Sodium 137 (137-145) mmol/L Potassium 4.6 (3.6-5.0) mmol/L Chloride 105.0 (98-107) mmol/L Carbon Dioxide 20 L (22-30) mmol/L BUN 17 (7-17) mg/dL Creatinine 0.5 L (0.6-1.2) mg/dL Glucose 130 H (65-100) mg/dL Calcium 7.6 L (8.4-10.2) mg/dL Total Bilirubin 0.20 (0.1-1.2) mg/dL AST 33 (5-40) units/L ALT 15 (7-56) units/L Alkaline Phosphatase 52 (35-129) units/L Total Protein 5.0 L (6.3-8.2) g/dL Albumin 1.9 L (3.9-5) g/dL
[2020-01-21] MEDS: PIPERACIL/TAZOBACTA 4.5/NS 100 4.5 GM/100 ML VIAL IV SCH ×2 (13:52→22:57)
--- NOTE | 2020-01-21 14:41 | Progress Note ---
Assessment and Plan -- Hydropneumothorax, not POA Patient developed hydropneumothorax on 01/15. Surgery consulted and patient had a chest tube placed on 01/15. Surgery following. Chest x-ray performed on 01/16 showed no significant change of pneumothorax --Acute respiratory failure, not POA likely from Hydropneumothorax cont supplemental O2 to keep o2 sat >94 -- Hypernatremia, Resolved -- Sepsis, likely UTI and infected Sacral decubitus ulcer On zosyn Monitor vital signs closely -- UTI (urinary tract infection) Continue antibiotics -- Bilateral pulmonary embolism Had pulmonary embolism 7 months ago. As per pulmonology, patient needs indefinite anticoagulation Continue Eliquis 5 mg twice daily. --Sacral decubitus ulcer, infected This was present on admission Now status post wound debridement on 01/15. Wound vac in place Continue wound care ID consulted Surgery on board -- Uncontrolled diabetes mellitus DM management with SSI, TF -- Dementia Continue donepezil -- Moderate protein-calorie malnutrition She is not eating well and is getting feeds through the NG tube. Discussed with - this problem has been chronic and he is open to getting a PEG placement to supplement her intake PEG placed 01/13. Now on tube feeds 01/15. Tube feeds temporarily 01/16. Resumed tube feeding 01/17. Tolerating feeds. -- DVT prophylaxis On eliquis 5mg BID for PE treatment Brief history: Patient is a 69-year-old -[place] female with known history of dementia, diabetes mellitus and pulmonary embolism was brought into the emergency room for decreased responsiveness, lethargy and hypotension. According to home health nurse patient has become less active and blood pressure was said to be low. She was brought to the emergency room for evaluation. Further history cannot be obtained from patient. Upon arrival in the emergency room patient had a low-grade fever. Work-up in the emergency room reveals elevated white blood cell count of 13.5, elevated BUN and creatinine 30 and 1.1 respectively. Found to be dehydrated and hypernatremic. Urinalysis shows UTI. Patient subsequently started on IV fluid and empiric IV antibiotics admitted for further evaluation. 01/08. Patient seen and examined at bedside this month. Patient not talking much this morning. Discussed case with patient spouse [patient usually does not talk much due to possible underlying dementia]. Started patient on her home medications today. Sodium slightly elevated from yesterday-162. Switch to hypotonic solution after resuscitation. Monitor BMP 01/09. More awake today. Sodium is improving. Has tachycardia today. Received a dose of metoprolol and is on telemetry. No arrhythmias noted. Has no congestion on chest xray. Will continue IV hydration for now. She needs assistance with meals due to advanced dementia. 01/10. Sodium is improving, will speak to family about diet and possible NGT and medication, Her dementia may be the prohibiting factor. Anticipate discharge in 24 to 48 hrs. ?IF SHE IS BEDBOUND. Continue Antibiotics. 01/11. Patient seen and examined at bedside this morning. She is not eating. Discussed with patients - plan for PEG placement. GI consulted. Blood culture from 01/07 grew GN rods. Repeat Blood culture sent. She is on ceftriaxone. Her sodium level is improving gradually. 01/12. Plan for tube placement. GI on board. 01/13. Patient had temperature 101 overnight. Patient has been on appropriate antibiotics for UTI. Urine culture has been reviewed. This point need to evaluate for other etiology of fever. Surgery consulted for evaluation for need for wound debridement. Plan for PEG tube placement today. 01/14. PEG tube placed. Surgery and ID on board. Plan for wound debridement as per surgery 01/15. Plan for debridement today as per surgery. 01/15 2pm. Patient noted to be tachycardic and slightly hypoxic after having sacral decubitus debridement. She was placed on Ventimask. EKG performed for tachycardia shows sinus tachycardia. Patient received bolus 500 cc and 1 dose of metoprolol with slight improvement. Stat chest x-ray performed shows new small to moderate hydropneumothorax. Discussed with process worker. Patient had a left-sided chest tube placed by surgery for pneumothorax. 01/16. Patient seen and examined at bedside this morning. Patient is awake looks comfortable. Has left-sided chest tube in place. Repeat x-ray ordered this morning and it shows no significant change from yesterday. Surgery is following for chest tube management. Will discuss with today Plan to resume Eliquis when okay with surgery 01/17. No change in medical condition. She is still tachy. Cardiology evaluation appreciated. Wound vac to sacral wound in place. Left chest tube in place. Surgery following. Ordered one dose of albumin today. I updated patients this PM. ID consulted 01/18. Antibiotics switched to zosyn. Duration of antibiotics to be determined. 01/19; Chest Tube placed on waterseal today, plan to repeat CXR tomorrow. patient on wound vac and ventimask 01/20: Chest tube still with moderate serous drainage. planned to trend output for one more day and dc CT if trending down. repeat CXR in am Subjective Date of service: 01/21/20 Principal diagnosis: Bacteremia Interval history: Patient seen and examined On ventimask, with left sided chest tube does not follow commend Objective - Exam Narrative Exam: General appearance: Present: no acute distress - EENT Eyes: Present: PERRL - Respiratory Respiratory: left: diminished, with chest tube - Cardiovascular Rhythm: regular Heart Sounds: Present: S1 & S2 - Extremities Extremity abnormal: edema - Abdominal General gastrointestinal: soft, non-tender, non-distended - Neurologic Neurologic: does not follow commend, patient appears lethargic Extremity: UE edema - Constitutional Vitals: Vital Signs - 12hr 01/21/20 01/21/20 01/21/20 05:23 09:43 11:10 Temperature 98.6 F 98.3 F Pulse Rate 81 109 H 101 H Respiratory 18 20 Rate Blood Pressure 93/59 121/63 116/67 O2 Sat by Pulse 100 100 Oximetry - Labs CBC & Chem 7: 01/21/20 05:51 01/21/20 05:51 Labs: Abnormal lab results 01/21/20 01/21/20 01/21/20 Range/Units 00:07 05:51 05:51 RBC 2.84 L (3.65-5.03) M/mm3 Hgb 8.6 L (10.1-14.3) gm/dl Hct 25.5 L (30.3-42.9) % Plt Count 463 H (140-440) K/mm3 Seg Neutrophils % 76.9 H (40.0-70.0) % Seg Neutrophils # 7.8 H (1.8-7.7) K/mm3 Carbon Dioxide 20 L (22-30) mmol/L Creatinine 0.5 L (0.6-1.2) mg/dL Glucose 130 H (65-100) mg/dL POC Glucose 68 L (70-105) Calcium 7.6 L (8.4-10.2) mg/dL Total Protein 5.0 L (6.3-8.2) g/dL Albumin 1.9 L (3.9-5) g/dL 01/21/20 01/21/20 Range/Units 05:58 11:25 RBC (3.65-5.03) M/mm3 Hgb (10.1-14.3) gm/dl Hct (30.3-42.9) % Plt Count (140-440) K/mm3 Seg Neutrophils % (40.0-70.0) % Seg Neutrophils # (1.8-7.7) K/mm3 Carbon Dioxide (22-30) mmol/L Creatinine (0.6-1.2) mg/dL Glucose (65-100) mg/dL POC Glucose 185 H 163 H (70-105) Calcium (8.4-10.2) mg/dL Total Protein (6.3-8.2) g/dL Albumin (3.9-5) g/dL
--- NOTE | 2020-01-21 15:42 | Progress Note ---
Assessment and Plan Cultures: Blood cultures 01/08/2020 MDR Proteus mirabilis. Blood culture 01/12/2020 no growth. Urine culture 01/08/2020 no growth. Tissue culture 01/16/2020 MDR Proteus and enterococcus A/P: 69 years old female with history of diabetes mellitus, pulmonary embolism, dementia, admitted on 01/08/2020 due to altered mental status, lethargy and hypotension. Patient was evaluated by her home health nurse who found her less active and hypotensive: #Sepsis: Present on admission with fever, tachycardia, leukocytosis, secondary to bacteremia and sacral decubitus infection. #MDR Proteus bacteremia: Likely from sacral decubitus' #Unstageable sacral decubitus, infected: Status post or debridement on 01/16/2020, tissue cultures growing MDR Proteus and enterococcus. OR findings extensive fascial necrosis. Discussed with Dr Vo likely osteomyelitis. #Mild UTI #Left sided Pneumothorax: Status post chest tube placement #Acute hypoxemic respiratory failure: Likely secondary to pneumothorax, on ventimask Recs:- -Continue Zosyn 4.5 g IV every 8 hours -Offloading of sacral area/heels is the mainstay stain therapy for this condition -Chest tube per surgery -Wound care and wound VAC per surgery -Case management discussed with family and they want everything to be done, overall poor prognosis, bedbound, will arrange zosyn 4.5 g IV every 8 hours total 6 weeks till 02/27/2020. PICC line should be placed. Risk for prolonged antibiotic therapy including Cdiff, other resistant bacteria is higher. Rosalina Roberts MD [facility] C: [phone] O: [phone] Subjective Date of service: 01/21/20 Principal diagnosis: Bacteremia Interval history: Remains nonverbal open eyes, no fever on vent mask Objective - Exam Narrative Exam: Physical Exam: Constitutional: alert non verbal on ventimask Head, Ears, Nose: Normocephalic, atraumatic. External ears, nose normal Eyes: Conjunctivae/corneas clear. No icterus. No ptosis. Neck: Supple, no meningeal signs Cardiovascular: S1, S2 normal. Respiratory: decreased BS, left sided chest tube GI: Soft, non-tender Musculoskeletal: jade upper extremities and lower extremities edema Skin: sacral wound w wound VAC Hem/Lymphatic: No palpable cervical or supraclavicular nodes. No lymphangitis Psych: no agitated Neurological: alert alternating with somnolence non verbal Per wound care: Right heel with deep tissue injury, measures 6 x 4 x 0.1 cm. Sacrum unstageable pressure injury, measures 8 x 6.5 x 0.4 cm. Now with a wound VAC. - Constitutional Vitals: Vital Signs Temp Pulse Resp BP Pulse Ox 98.3 F 101 H 20 116/67 100 01/21/20 11:10 01/21/20 11:10 01/21/20 11:10 01/21/20 11:10 01/21/20 11:10 Temperature -Last 24 Hours Temperature 98.3 F Temperature 98.6 F Temperature 97.6 F Temperature 98.0 F - Labs CBC & Chem 7: 01/21/20 05:51 01/21/20 05:51 Labs: Abnormal lab results 01/21/20 01/21/20 01/21/20 Range/Units 00:07 05:51 05:51 RBC 2.84 L (3.65-5.03) M/mm3 Hgb 8.6 L (10.1-14.3) gm/dl Hct 25.5 L (30.3-42.9) % Plt Count 463 H (140-440) K/mm3 Seg Neutrophils % 76.9 H (40.0-70.0) % Seg Neutrophils # 7.8 H (1.8-7.7) K/mm3 Carbon Dioxide 20 L (22-30) mmol/L Creatinine 0.5 L (0.6-1.2) mg/dL Glucose 130 H (65-100) mg/dL POC Glucose 68 L (70-105) Calcium 7.6 L (8.4-10.2) mg/dL Total Protein 5.0 L (6.3-8.2) g/dL Albumin 1.9 L (3.9-5) g/dL 01/21/20 01/21/20 Range/Units 05:58 11:25 RBC (3.65-5.03) M/mm3 Hgb (10.1-14.3) gm/dl Hct (30.3-42.9) % Plt Count (140-440) K/mm3 Seg Neutrophils % (40.0-70.0) % Seg Neutrophils # (1.8-7.7) K/mm3 Carbon Dioxide (22-30) mmol/L Creatinine (0.6-1.2) mg/dL Glucose (65-100) mg/dL POC Glucose 185 H 163 H (70-105) Calcium (8.4-10.2) mg/dL Total Protein (6.3-8.2) g/dL Albumin (3.9-5) g/dL
[2020-01-21] MEDS: MIRTAZAPINE 15 MG TAB PO SCH (22:08)
[2020-01-21] MEDS: DONEPEZIL 10 MG TAB PO SCH (22:10)
[2020-01-21] MEDS: traZODone 50 MG TAB PO SCH (22:12)
[2020-01-22] MEDS: SODIUM CHLORIDE 0.9% 1000 ML 1,000 ML IV SCH
[2020-01-22] MEDS: DEXTROSE 50% IN WATER (25GM) 50 ML SYRINGE IV PRN (01:00)
[2020-01-22 02:12] LABS: Basophils % (Auto) 0.1 % (0.0-1.8); Eosinophils # (Auto) 0.2 K/mm3 (0.0-0.4); Eosinophils % (Auto) 1.8 % (0.0-4.3); Hematocrit 23.3 % (30.3-42.9); Lymphocytes # (Auto) 1.8 K/mm3 (1.2-5.4); Lymphocytes % (Auto) 17.4 % (13.4-35.0); Mean Corpuscular HGB Conc 34 % (30-34); Mean Corpuscular Volume 90 fl (79-97); Monocytes # (Auto) 0.6 K/mm3 (0.0-0.8); Monocytes % (Auto) 5.9 % (0.0-7.3); Platelet Count 405 K/mm3 (140-440); Red Cell Distribution Width 14.2 % (13.2-15.2)
[2020-01-22 02:22] LABS: Alanine Aminotransferase 13 units/L (7-56); Blood Urea Nitrogen 14 mg/dL (7-17); Calcium 7.5 mg/dL (8.4-10.2); Hemolysis Index 4
[2020-01-22 02:30] LABS: BUN/Creatinine Ratio 35
--- NOTE | 2020-01-22 09:08 | XRay Report ---
CHEST 1 VIEW 01/22/2020 7:57 AM INDICATION / CLINICAL INFORMATION: L chest tube. COMPARISON: Chest one view dated 01/20/2020. FINDINGS: The patient is rotated to the left. SUPPORT DEVICES: Unchanged. HEART / MEDIASTINUM: Stable. LUNGS / PLEURA: Reduced lung volumes with slightly increased bilateral pulmonary opacities and simila r small pleural effusions. No pneumothorax. ADDITIONAL FINDINGS: No significant additional findings. IMPRESSION: 1. Slightly increased probable bilateral atelectasis. 2. No other significant interval change. Signer Name: Greg Higgins MD Signed: 01/22/2020 9:04 AM Workstation Name: [id number]
[2020-01-22] MEDS: APIXABAN 5 MG TAB PO SCH ×2 (10:04→22:11)
[2020-01-22] MEDS: MEGESTROL 400 MG/10 ML ORAL LIQD PO SCH (10:04)
[2020-01-22] MEDS: METOPROLOL TARTRATE 25 MG TAB PO SCH ×2 (10:05→22:11)
--- NOTE | 2020-01-22 11:35 | Progress Note ---
Assessment and Plan Cultures: Blood cultures 01/08/2020 MDR Proteus mirabilis. Blood culture 01/12/2020 no growth. Urine culture 01/08/2020 no growth. Tissue culture 01/16/2020 MDR Proteus and enterococcus A/P: 69 years old female with history of diabetes mellitus, pulmonary embolism, dementia, admitted on 01/08/2020 due to altered mental status, lethargy and hypotension. Patient was evaluated by her home health nurse who found her less active and hypotensive: #Sepsis: Present on admission with fever, tachycardia, leukocytosis, secondary to bacteremia and sacral decubitus infection. #MDR Proteus bacteremia: Likely from sacral decubitus' #Unstageable sacral decubitus, infected: Status post or debridement on 01/16/2020, tissue cultures growing MDR Proteus and enterococcus. OR findings extensive fascial necrosis. Discussed with Dr Vo likely osteomyelitis. #Mild UTI #Left sided Pneumothorax: Status post chest tube placement #Acute hypoxemic respiratory failure: Likely secondary to pneumothorax, on ventimask Recs:- -Continue Zosyn 4.5 g IV every 8 hours -Offloading of sacral area/heels is the mainstay stain therapy for this condition -Chest tube per surgery -Wound care and wound VAC per surgery -Ok to d/c on zosyn 4.5 g IV every 8 hours total 6 weeks till 02/27/2020. PICC ordered. Risk for prolonged antibiotic therapy including Cdiff, other resistant bacteria is higher. will sign off please call me with questions MD [facility] C: [phone] O: [phone] Subjective Date of service: 01/22/20 Principal diagnosis: Bacteremia Interval history: Remains nonverbal open eyes, no fever on vent mask Objective - Exam Narrative Exam: Physical Exam: Constitutional: alert non verbal on ventimask Head, Ears, Nose: Normocephalic, atraumatic. External ears, nose normal Eyes: Conjunctivae/corneas clear. No icterus. No ptosis. Neck: Supple, no meningeal signs Cardiovascular: S1, S2 normal. Respiratory: decreased BS, left sided chest tube GI: Soft, non-tender Musculoskeletal: jade upper extremities and lower extremities rashad, left arm contracted Skin: sacral wound w wound VAC Hem/Lymphatic: No palpable cervical or supraclavicular nodes. No lymphangitis Psych: no agitated Neurological: alert alternating with somnolence non verbal Per wound care: Right heel with deep tissue injury, measures 6 x 4 x 0.1 cm. Sacrum unstageable pressure injury, measures 8 x 6.5 x 0.4 cm. Now with a wound VAC. - Constitutional Vitals: Vital Signs Temp Pulse Resp BP Pulse Ox 97.6 F 107 H 16 125/67 100 01/22/20 04:40 01/22/20 10:05 01/22/20 04:40 01/22/20 10:05 01/22/20 04:40 Temperature -Last 24 Hours Temperature 97.6 F Temperature 98.3 F Temperature 97.0 F - Labs CBC & Chem 7: 01/22/20 01:28 01/22/20 01:28 Labs: Abnormal lab results 01/21/20 01/21/20 01/21/20 Range/Units 11:25 16:22 21:17 RBC (3.65-5.03) M/mm3 Hgb (10.1-14.3) gm/dl Hct (30.3-42.9) % Seg Neutrophils % (40.0-70.0) % Chloride (98-107) mmol/L Creatinine (0.6-1.2) mg/dL Glucose (65-100) mg/dL POC Glucose 163 H 177 H 67 L (70-105) Calcium (8.4-10.2) mg/dL Total Protein (6.3-8.2) g/dL Albumin (3.9-5) g/dL 01/22/20 01/22/20 01/22/20 Range/Units 01:28 01:28 01:28 RBC 2.60 L (3.65-5.03) M/mm3 Hgb 8.0 L (10.1-14.3) gm/dl Hct 23.3 L (30.3-42.9) % Seg Neutrophils % 74.8 H (40.0-70.0) % Chloride 107.6 H (98-107) mmol/L Creatinine 0.4 L (0.6-1.2) mg/dL Glucose 152 H (65-100) mg/dL POC Glucose 203 H (70-105) Calcium 7.5 L (8.4-10.2) mg/dL Total Protein 4.0 L (6.3-8.2) g/dL Albumin 2.0 L (3.9-5) g/dL
--- NOTE | 2020-01-22 12:49 | Progress Note ---
Assessment and Plan 69 yo F s/p sacral wound debridement and chest tube placement, POD 5 CXR 01/22/20 - no PTX. L chest tube in place Plan: 1. continue wound vac to -125mmHg suction 2. Chest tube discontinued. Repeat CXR in am 3. offloading 4. optimize nutrition 5. poor prognosis for wound healing, recommend hospice Discussed with VARUN Alexander. Family not willing to consider hospice at this time and is planning to take the patient home for 24Hr care. Home wound vac already delivered. If CXR in am is stable, patient is ok to dc from surgery standpoint. Thank you, please call with questions Subjective Date of service: 01/22/20 Narrative: Pt seen and examined. No overnight events. Objective Vital Signs - 12hr 01/22/20 01/22/20 01/22/20 04:40 10:05 11:50 Temperature 97.6 F 97.9 F Pulse Rate 97 H 107 H 91 H Respiratory 16 18 Rate Blood Pressure 128/65 125/67 109/49 O2 Sat by Pulse 100 100 Oximetry - General physical appearance Narrative Exam: Gen; Awake, NAD CV: S1, S2+ Resp; even and unlabored. L Chest tube present, no leak, on water seal. Serous fluid in collection chamber. Chest tube dressing removed and skin suture cut, chest tube removed intact and occlusive dressing applied. Ext: no c/c/e Sacrum: wound vac in place with sanguenous drainage, minimal Chest tube output - 225cc/24h Wound vac output - 10cc/24h - Labs 01/22/20 01:28 01/22/20 01:28 Diabetes panel 01/22/20 Range/Units 01:28 Sodium 141 (137-145) mmol/L Potassium 3.7 (3.6-5.0) mmol/L Chloride 107.6 H (98-107) mmol/L Carbon Dioxide 22 (22-30) mmol/L BUN 14 (7-17) mg/dL Creatinine 0.4 L (0.6-1.2) mg/dL Glucose 152 H (65-100) mg/dL Calcium 7.5 L (8.4-10.2) mg/dL AST 17 (5-40) units/L ALT 13 (7-56) units/L Alkaline Phosphatase 47 (35-129) units/L Total Protein 4.0 L (6.3-8.2) g/dL Albumin 2.0 L (3.9-5) g/dL Calcium panel 01/22/20 Range/Units 01:28 Calcium 7.5 L (8.4-10.2) mg/dL Albumin 2.0 L (3.9-5) g/dL Pituitary panel 01/22/20 Range/Units 01:28 Sodium 141 (137-145) mmol/L Potassium 3.7 (3.6-5.0) mmol/L Chloride 107.6 H (98-107) mmol/L Carbon Dioxide 22 (22-30) mmol/L BUN 14 (7-17) mg/dL Creatinine 0.4 L (0.6-1.2) mg/dL Glucose 152 H (65-100) mg/dL Calcium 7.5 L (8.4-10.2) mg/dL Adrenal panel 01/22/20 Range/Units 01:28 Sodium 141 (137-145) mmol/L Potassium 3.7 (3.6-5.0) mmol/L Chloride 107.6 H (98-107) mmol/L Carbon Dioxide 22 (22-30) mmol/L BUN 14 (7-17) mg/dL Creatinine 0.4 L (0.6-1.2) mg/dL Glucose 152 H (65-100) mg/dL Calcium 7.5 L (8.4-10.2) mg/dL Total Bilirubin 0.30 (0.1-1.2) mg/dL AST 17 (5-40) units/L ALT 13 (7-56) units/L Alkaline Phosphatase 47 (35-129) units/L Total Protein 4.0 L (6.3-8.2) g/dL Albumin 2.0 L (3.9-5) g/dL
--- NOTE | 2020-01-22 13:12 | Progress Note ---
Assessment and Plan -- Hydropneumothorax, not POA Patient developed hydropneumothorax on 01/15. Surgery consulted and patient had a chest tube placed on 01/15. Surgery following. Planned to remove chest tube today --Acute respiratory failure, not POA likely from Hydropneumothorax cont supplemental O2 to keep o2 sat >94 -- Hypernatremia, Resolved -- Sepsis, likely UTI and infected Sacral decubitus ulcer On zosyn Monitor vital signs closely -- UTI (urinary tract infection) Continue antibiotics -- Bilateral pulmonary embolism Had pulmonary embolism 7 months ago. As per pulmonology, patient needs indefinite anticoagulation Continue Eliquis 5 mg twice daily. --Sacral decubitus ulcer, infected This was present on admission Now status post wound debridement on 01/15. Wound vac in place Continue wound care ID consulted Surgery on board -- Uncontrolled diabetes mellitus DM management with SSI, TF -- Dementia Continue donepezil -- Moderate protein-calorie malnutrition She is not eating well and is getting feeds through the NG tube. Discussed with - this problem has been chronic and he is open to getting a PEG placement to supplement her intake PEG placed 01/13. Now on tube feeds 01/15. Tube feeds temporarily 01/16. Resumed tube feeding 01/17 to date. Tolerating feeds. -- DVT prophylaxis On eliquis 5mg BID for PE treatment Brief history: Patient is a 69-year-old -[place] female with known history of dementia, diabetes mellitus and pulmonary embolism was brought into the emergency room for decreased responsiveness, lethargy and hypotension. According to home health nurse patient has become less active and blood pressure was said to be low. She was brought to the emergency room for evaluation. Further history cannot be obtained from patient. Upon arrival in the emergency room patient had a low-grade fever. Work-up in the emergency room reveals elevated white blood cell count of 13.5, elevated BUN and creatinine 30 and 1.1 respectively. Found to be dehydrated and hypernatremic. Urinalysis shows UTI. Patient subsequently started on IV fluid and empiric IV antibiotics admitted for further evaluation. 01/08. Patient seen and examined at bedside this month. Patient not talking much this morning. Discussed case with patient spouse [patient usually does not talk much due to possible underlying dementia]. Started patient on her home medications today. Sodium slightly elevated from yesterday-162. Switch to hypotonic solution after resuscitation. Monitor BMP 01/09. More awake today. Sodium is improving. Has tachycardia today. Received a dose of metoprolol and is on telemetry. No arrhythmias noted. Has no congestion on chest xray. Will continue IV hydration for now. She needs assistance with meals due to advanced dementia. 01/10. Sodium is improving, will speak to family about diet and possible NGT and medication, Her dementia may be the prohibiting factor. Anticipate discharge in 24 to 48 hrs. ?IF SHE IS BEDBOUND. Continue Antibiotics. 01/11. Patient seen and examined at bedside this morning. She is not eating. Discussed with patients - plan for PEG placement. GI consulted. Blood culture from 01/07 grew GN rods. Repeat Blood culture sent. She is on ceftriaxone. Her sodium level is improving gradually. 01/12. Plan for tube placement. GI on board. 01/13. Patient had temperature 101 overnight. Patient has been on appropriate antibiotics for UTI. Urine culture has been reviewed. This point need to evaluate for other etiology of fever. Surgery consulted for evaluation for need for wound debridement. Plan for PEG tube placement today. 01/14. PEG tube placed. Surgery and ID on board. Plan for wound debridement as per surgery 01/15. Plan for debridement today as per surgery. 01/15 2pm. Patient noted to be tachycardic and slightly hypoxic after having sacral decubitus debridement. She was placed on Ventimask. EKG performed for tachycardia shows sinus tachycardia. Patient received bolus 500 cc and 1 dose of metoprolol with slight improvement. Stat chest x-ray performed shows new small to moderate hydropneumothorax. Discussed with laborer hoisting. Patient had a left-sided chest tube placed by ramila wallace for pneumothorax. 01/16. Patient seen and examined at bedside this morning. Patient is awake lo oks comfortable. Has left-sided chest tube in place. Repeat x-ray ordered this morning and it shows no significant change from yesterday. Surgery is following for chest tube management. Will discuss with today Plan to resume Eliquis when okay with surgery 01/17. No change in medical condition. She is still tachy. Cardiology evaluation appreciated. Wound vac to sacral wound in place. Left chest tube in place. Surgery following. Ordered one dose of albumin today. I updated patients this PM. ID consulted 01/18. Antibiotics switched to zosyn. Duration of antibiotics to be determined. 01/19; Chest Tube placed on waterseal today, plan to repeat CXR tomorrow. patient on wound vac and ventimask 01/20: Chest tube still with moderate serous drainage. planned to trend output for one more day and dc CT if trending down. repeat CXR in am 01/21: Chest tube to be discontinued today. Repeat CXR in am after removing chest tube. if clinically stable then possible d/c in the am. Subjective Date of service: 01/22/20 Principal diagnosis: Bacteremia Interval history: Patient seen and examined On ventimask, with left sided chest tube does not follow commend Objective - Exam Narrative Exam: General appearance: Present: no acute distress - EENT Eyes: Present: PERRL - Respiratory Respiratory: left: diminished, with chest tube - Cardiovascular Rhythm: regular Heart Sounds: Present: S1 & S2 - Extremities Extremity abnormal: edema - Abdominal General gastrointestinal: soft, non-tender, non-distended - Neurologic Neurologic: does not follow commend, patient appears lethargic Extremity: UE edema - Constitutional Vitals: Vital Signs - 12hr 01/22/20 01/22/20 01/22/20 04:40 10:05 11:50 Temperature 97.6 F 97.9 F Pulse Rate 97 H 107 H 91 H Respiratory 16 18 Rate Blood Pressure 128/65 125/67 109/49 O2 Sat by Pulse 100 100 Oximetry - Labs CBC & Chem 7: 01/22/20 01:28 01/22/20 01:28 Labs: Abnormal lab results 01/21/20 01/21/20 01/22/20 Range/Units 16:22 21:17 01:28 RBC 2.60 L (3.65-5.03) M/mm3 Hgb 8.0 L (10.1-14.3) gm/dl Hct 23.3 L (30.3-42.9) % Seg Neutrophils % 74.8 H (40.0-70.0) % Chloride (98-107) mmol/L Creatinine (0.6-1.2) mg/dL Glucose (65-100) mg/dL POC Glucose 177 H 67 L (70-105) Calcium (8.4-10.2) mg/dL Total Protein (6.3-8.2) g/dL Albumin (3.9-5) g/dL 01/22/20 01/22/20 01/22/20 Range/Units 01:28 01:28 12:06 RBC (3.65-5.03) M/mm3 Hgb (10.1-14.3) gm/dl Hct (30.3-42.9) % Seg Neutrophils % (40.0-70.0) % Chloride 107.6 H (98-107) mmol/L Creatinine 0.4 L (0.6-1.2) mg/dL Glucose 152 H (65-100) mg/dL POC Glucose 203 H 140 H (70-105) Calcium 7.5 L (8.4-10.2) mg/dL Total Protein 4.0 L (6.3-8.2) g/dL Albumin 2.0 L (3.9-5) g/dL
[2020-01-22] MEDS: PIPERACIL/TAZOBACTA 4.5/NS 100 4.5 GM/100 ML VIAL IV SCH ×2 (14:00→22:14)
[2020-01-22] MEDS: MIRTAZAPINE 15 MG TAB PO SCH (22:11)
[2020-01-22] MEDS: traZODone 50 MG TAB PO SCH (22:12)
[2020-01-22] MEDS: DONEPEZIL 10 MG TAB PO SCH (22:14)
[2020-01-23] MEDS: PIPERACIL/TAZOBACTA 4.5/NS 100 4.5 GM/100 ML VIAL IV SCH ×4 (05:33→23:18)
[2020-01-23 06:53] LABS: Hematocrit 24.1 % (30.3-42.9); Hemoglobin 8.6 gm/dl (10.1-14.3); Mean Corpuscular HGB Conc 36 % (30-34); Mean Corpuscular Volume 90 fl (79-97); Platelet Count 435 K/mm3 (140-440); Red Blood Count 2.68 M/mm3 (3.65-5.03); Red Cell Distribution Width 14.8 % (13.2-15.2)
[2020-01-23 07:20] LABS: Alanine Aminotransferase 12 units/L (7-56); Blood Urea Nitrogen 13 mg/dL (7-17); Hemolysis Index 2
[2020-01-23 07:21] LABS: BUN/Creatinine Ratio 33
--- NOTE | 2020-01-23 07:58 | XRay Report ---
CHEST 1 VIEW INDICATION: s/p chest tube removal. COMPARISON: Yesterday FINDINGS: Support devices: Left chest tube has been removed. Heart: Within normal limits. Lungs/Pleura: Bibasilar atelectatic changes and possible small pleural effusions are unchanged. The u pper lung zones are clear. No pneumothorax is detected. Additional findings: None. IMPRESSION: No pneumothorax identified after left chest tube removal. Persistent bibasilar atelectatic changes a nd possible small pleural effusions. Signer Name: Beni Mills Jr, MD Signed: 01/23/2020 7:53 AM Workstation Name: [id number]
[2020-01-23 08:34] LABS: Anisocytosis Few; Band Neutrophils # (Manual) 0.1 K/mm3; Basophils % (Manual) 0 % (0.0-1.8); Eosinophils % (Manual) 0 % (0.0-4.3); Hypochromasia Few; Total Cells Counted 100
[2020-01-23 08:35] LABS: Giant Platelets Rare; Platelet Clumps Rare; Platelet Estimate Consistent w Auto
--- NOTE | 2020-01-23 09:37 | Progress Note ---
Assessment and Plan Reflex sinus tachycardia TSH is 2.4 Left hydropneumothorax AMS Sepsis Hx of PE -on eliquis for anticoagulation Sacral wound s/p debridement wound vac is in place Dementia Hx of PE -on eliquis for anticoagulation Recommendations: No specific treatment is indicated for sinus tachycardia other than optimal management of the primary cause. We will follow intermittently. Subjective Date of service: 01/23/20 Principal diagnosis: Bacteremia Interval history: Patient is non-verbal. No interval cardiac changes. Objective Vital Signs Temp Pulse Resp BP Pulse Ox 01/23/20 06:10 97.6 F 113 H 22 122/68 97 01/23/20 00:08 99.0 F 64 16 95/48 100 01/22/20 17:05 98.6 F 109 H 18 110/43 100 01/22/20 11:50 97.9 F 91 H 18 109/49 100 01/22/20 10:05 107 H 125/67 - Physical Examination General: No Apparent Distress HEENT: Positive: PERRL Cardiac: Positive: Tachycardia Abdomen: Positive: Other (PEG) Extremities: Absent: edema - Labs and Meds Cardiac Enzymes 01/23/20 Range/Units 06:10 AST 16 (5-40) units/L CBC 01/23/20 Range/Units 06:10 WBC 9.9 (4.5-11.0) K/mm3 RBC 2.68 L (3.65-5.03) M/mm3 Hgb 8.6 L (10.1-14.3) gm/dl Hct 24.1 L (30.3-42.9) % Plt Count 435 (140-440) K/mm3 Comprehensive Metabolic Panel 01/23/20 Range/Units 06:10 Sodium 143 (137-145) mmol/L Potassium 4.1 (3.6-5.0) mmol/L Chloride 108.8 H (98-107) mmol/L Carbon Dioxide 23 (22-30) mmol/L BUN 13 (7-17) mg/dL Creatinine 0.4 L (0.6-1.2) mg/dL Glucose 105 H (65-100) mg/dL Calcium 8.0 L (8.4-10.2) mg/dL AST 16 (5-40) units/L ALT 12 (7-56) units/L Alkaline Phosphatase 52 (35-129) units/L Total Protein 4.9 L D (6.3-8.2) g/dL Albumin 2.0 L (3.9-5) g/dL
[2020-01-23] MEDS: MEGESTROL 400 MG/10 ML ORAL LIQD PO SCH (10:00)
[2020-01-23] MEDS: METOPROLOL TARTRATE 25 MG TAB PO SCH ×2 (10:00→23:09)
[2020-01-23] MEDS: APIXABAN 5 MG TAB PO SCH ×2 (10:00→23:09)
--- NOTE | 2020-01-23 10:15 | Progress Note ---
Assessment and Plan 69 yo F s/p sacral wound debridement and chest tube placement, POD 6 CXR 01/23/20 - no PTX Plan: 1. continue wound vac to -125mmHg suction 2. May remove left chest dressing in 5-6 days 3. offloading 4. optimize nutrition - on TF 5. abx per ID 6. poor prognosis for wound healing, recommend hospice 7. HHC, case management on board D/W CM yesterday. Family not ready to consider hospice and plan to take patient home. Home wound vac already delivered. Ok to dc from surgery standpoint. Pt may follow up in wound care center upon dc Thank you, please call with questions Subjective Date of service: 01/23/20 Narrative: Pt seen in follow up. No overnight events noted. Objective Vital Signs - 12hr 01/23/20 01/23/20 00:08 06:10 Temperature 99.0 F 97.6 F Pulse Rate 64 113 H Respiratory 16 22 Rate Blood Pressure 95/48 122/68 O2 Sat by Pulse 100 97 Oximetry - General physical appearance Narrative Exam: Gen: Awake, Not communicative - baseline. NAD CV: S1, S2+ Resp: even and unlabored. L chest dressing c/d/i. No crepitus Sacrum - wound vac with sang drainage, minimal. No leak, good deal Wound vac output - non recorded - Labs 01/23/20 06:10 01/23/20 06:10 Diabetes panel 01/23/20 Range/Units 06:10 Sodium 143 (137-145) mmol/L Potassium 4.1 (3.6-5.0) mmol/L Chloride 108.8 H (98-107) mmol/L Carbon Dioxide 23 (22-30) mmol/L BUN 13 (7-17) mg/dL Creatinine 0.4 L (0.6-1.2) mg/dL Glucose 105 H (65-100) mg/dL Calcium 8.0 L (8.4-10.2) mg/dL AST 16 (5-40) units/L ALT 12 (7-56) units/L Alkaline Phosphatase 52 (35-129) units/L Total Protein 4.9 L D (6.3-8.2) g/dL Albumin 2.0 L (3.9-5) g/dL Calcium panel 01/23/20 Range/Units 06:10 Calcium 8.0 L (8.4-10.2) mg/dL Albumin 2.0 L (3.9-5) g/dL Pituitary panel 01/23/20 Range/Units 06:10 Sodium 143 (137-145) mmol/L Potassium 4.1 (3.6-5.0) mmol/L Chloride 108.8 H (98-107) mmol/L Carbon Dioxide 23 (22-30) mmol/L BUN 13 (7-17) mg/dL Creatinine 0.4 L (0.6-1.2) mg/dL Glucose 105 H (65-100) mg/dL Calcium 8.0 L (8.4-10.2) mg/dL Adrenal panel 01/23/20 Range/Units 06:10 Sodium 143 (137-145) mmol/L Potassium 4.1 (3.6-5.0) mmol/L Chloride 108.8 H (98-107) mmol/L Carbon Dioxide 23 (22-30) mmol/L BUN 13 (7-17) mg/dL Creatinine 0.4 L (0.6-1.2) mg/dL Glucose 105 H (65-100) mg/dL Calcium 8.0 L (8.4-10.2) mg/dL Total Bilirubin 0.30 (0.1-1.2) mg/dL AST 16 (5-40) units/L ALT 12 (7-56) units/L Alkaline Phosphatase 52 (35-129) units/L Total Protein 4.9 L D (6.3-8.2) g/dL Albumin 2.0 L (3.9-5) g/dL
--- NOTE | 2020-01-23 12:30 | Discharge Summary ---
Providers - Providers Date of Admission: 01/09/20 12:44 Date of discharge: 01/26/20 Attending physician: DEONTE LAUREANO 01/08/20 23:14 Consult to Dietitian/Nutrition [CONS] Routine Physician Instructions: Reason For Exam: Reason for Consult: Diet education Consult to Physician [CONS] Routine Comment: Consulting Provider: TATO SINGH Physician Instructions: Reason For Exam: HYPERNATREMIA, DARON 01/09/20 07:18 Consult to Wound/ET Nurse [CONS] Urgent Reason For Exam: wound eval 01/09/20 07:23 Physical Therapy Evaluation and Treat [CONS] Routine Comment: Reason For Exam: Debility 01/10/20 02:09 Speech Therapy Evaluation and Treat [CONS] Routine Reason For Exam: swallow test 01/11/20 15:10 Consult to Dietitian/Nutrition [CONS] Routine Physician Instructions: Reason For Exam: Reason for Consult: Write/Manage Tube Feeding 01/11/20 16:25 Consult to Dietitian/Nutrition [CONS] Routine Physician Instructions: Assess nutrtn needs, initiate, modify, manage TF Reason For Exam: Reason for Consult: Write/Manage Tube Feeding Reason for Consult: Write/Manage Tube Feeding 01/12/20 11:00 Consult to Physician [CONS] Routine Comment: Consulting Provider: HERNESTO SZYMANSKI Physician Instructions: Reason For Exam: PEG tube placement 01/14/20 07:28 Consult to Physician [CONS] Routine Comment: Consulting Provider: ARTURO JUAREZ Physician Instructions: Reason For Exam: Sacral ulcer wound debridement 01/14/20 15:14 Consult to Dietitian/Nutrition [CONS] Routine Physician Instructions: Reason For Exam: Reason for Consult: post-peg 01/16/20 12:13 Consult to Physician [CONS] Urgent Comment: Consulting Provider: RASHID HWANG Physician Instructions: Reason For Exam: Tachycardia 01/16/20 15:16 Consult to Wound/ET Nurse [CONS] Routine Reason For Exam: wound vac management 01/17/20 08:40 Consult to Dietitian/Nutrition [CONS] Routine Physician Instructions: Assess nutrtn needs, initiate, modify, manage TF Reason For Exam: Reason for Consult: Write/Manage Tube Feeding Reason for Consult: Write/Manage Tube Feeding 01/19/20 07:21 Consult to Physician [CONS] Routine Comment: Consulting Provider: AMY GARCIA Physician Instructions: Reason For Exam: Unstageable sacral ulcer s/p debridement 01/19/20 13:10 Consult to Case Management [CONS] Stat Services Needed at Discharge: Other Notified:: control systems technician Additional Physician Instructions: -Discuss with family goals of care, overall poor prognosis, bedbound, if family wants agressive management then will treat with zosyn 4.5 g IV every 8 hours total 6 weeks till 02/27/2020. 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 Remove PICC line after last dose unless otherwise instructed. Line: Maintain IV access with weekly dressing changes and locks per protocol. Labs: Every Sunday CBC, AST, ALT, Creatinine, CRP. Please fax results to [phone] and call [phone] for critical lab results. Rosalina Roberts MD Infectious Diseases [place] [facility] ([facility]) O: [phone] F: [phone] 01/21/20 02:35 Occupational Therapy Evaluate and Treat [CONS] Routine Comment: Reason For Exam: need evaluation per family request 01/21/20 15:42 Consult to PICC Line RN [CONS] Routine Reason For Exam: iv zosyn x 6 weeks Type Line:: PICC Primary care physician: GRAY TENDER Hospitalization Condition: Stable Pertinent studies: Chest x-rays, abdominal x-rays, abdomen CT, chest CT Procedures: PEG tube placement by Hospital course: Patient is a 69-year-old -[place] female with known history of dementia, diabetes mellitus and pulmonary embolism was brought into the emergency room on 01/08/20 for decreased responsiveness, lethargy and hypotension. According to home health nurse patient has become less active and blood pressure was said to be low. She was brought to the emergency room for evaluation. Upon arrival in the emergency room patient had a low-grade fever. Work-up in the emergency room reveals elevated white blood cell count of 13.5, elevated BUN and creatinine 30 and 1.1 respectively. Found to be dehydrated and hypernatremic. Urinalysis showed UTI. Patient subsequently started on IV fluid and empiric IV antibiotics, admitted for further evaluation and Mx. Daily Course; 01/08. Patient seen and examined at bedside this month. Patient not talking much this morning. Discussed case with patient spouse [patient usually does not talk much due to possible underlying dementia]. Started patient on her home medications today. Sodium slightly elevated from yesterday-162. Switch to hypotonic solution after resuscitation. Monitor BMP 01/09. More awake today. Sodium is improving. Has tachycardia today. Received a dose of metoprolol and is on telemetry. No arrhythmias noted. Has no congestion on chest xray. Will continue IV hydration for now. She needs assistance with meals due to advanced dementia. 01/10. Sodium is improving, will speak to family about diet and possible NGT and medication, Her dementia may be the prohibiting factor. Anticipate discharge in 24 to 48 hrs. ?IF SHE IS BEDBOUND. Continue Antibiotics. 01/11. Patient seen and examined at bedside this morning. She is not eating. Discussed with patients - plan for PEG placement. GI consulted. Blood culture from 01/07 grew GN rods. Repeat Blood culture sent. She is on ceftriaxone. Her sodium level is improving gradually. 01/12. Plan for tube placement. GI on board. 01/13. Patient had temperature 101 overnight. Patient has been on appropriate antibiotics for UTI. Urine culture has been reviewed. This point need to evaluate for other etiology of fever. Surgery consulted for evaluation for need for wound debridement. Plan for PEG tube placement today. 01/14. PEG tube placed. Surgery and ID on board. Plan for wound debridement as per surgery 01/15. Plan for debridement today as per surgery. 01/15 2pm. Patient noted to be tachycardic and slightly hypoxic after having sacral decubitus debridement. She was placed on Ventimask. EKG performed for tachycardia shows sinus tachycardia. Patient received bolus 500 cc and 1 dose of metoprolol with slight improvement. Stat chest x-ray performed shows new small to moderate hydropneumothorax. Discussed with speech language pathologist assistant. Patient had a left-sided chest tube placed by surgery for pneumothorax. 01/16. Patient seen and examined at bedside this morning. Patient is awake looks comfortable. Has left-sided chest tube in place. Repeat x-ray ordered this morning and it shows no significant change from yesterday. Surgery is following for chest tube management. Will discuss with today Plan to resume Eliquis when okay with surgery 01/17. No change in medical condition. She is still tachy. Cardiology evaluation appreciated. Wound vac to sacral wound in place. Left chest tube in place. Surgery following. Ordered one dose of albumin today. I updated patients this PM. ID consulted 01/18. Antibiotics switched to zosyn. Duration of antibiotics to be determined. 01/19; Chest Tube placed on waterseal today, plan to repeat CXR tomorrow. patient on wound vac and ventimask 01/20: Chest tube still with moderate serous drainage. planned to trend output for one more day and dc CT if trending down. repeat CXR in am 01/21: Chest tube to be discontinued today. Repeat CXR in am after removing chest tube. if clinically stable then possible d/c in the am. 01/22: chest tube removed yesterday. Patient now weaned off to RA. Planned for d/c today but family not ready to accept the patient before Sunday. CM working on d/c planning. 01/23: plan to d/c Sunday with 24/7 family care. family stated they cannot provided 24/7 care before Sunday. patient tolerating diet, off chest tube, on RA 01/24: plan to d/c Sunday with 24/7 family care. cont supportive care. discussed with her in details. 01/25; d/c home today with IV abx, wound vac, HH and 24/7 family care Discharge Diagnosis; -- Hydropneumothorax, not POA Patient developed hydropneumothorax on 01/15. Surgery consulted and patient had a chest tube placed on 01/15. Removed chest tube on 01/21, Repeat CXR stable --Acute respiratory failure, not POA likely from Hydropneumothorax, now improved cont supplemental O2 to keep o2 sat >94 -- Hypernatremia, Resolved with iv fluid hydration -- Sepsis, likely UTI and infected Sacral decubitus ulcer d/c on zosyn 4.5 g IV every 8 hours total 6 weeks till 02/27/2020 -- UTI (urinary tract infection) treated with antibiotics -- Bilateral pulmonary embolism Had pulmonary embolism 7 months ago. As per pulmonology, patient needs indefinite anticoagulation Continue Eliquis 5 mg twice daily. --Sacral decubitus ulcer, infected This was present on admission Now status post wound debridement on 01/15 by GS. Wound vac in place Continue wound care -- Uncontrolled diabetes mellitus DM management with SSI, TF -- Dementia Continue donepezil -- Moderate protein-calorie malnutrition She was not eating well and was getting feeds through the NG tube. Discussed with - this problem has been chronic and he is open to getting a PEG placement to supplement her intake PEG placed 01/13. Now on tube feeds -- DVT prophylaxis On eliquis 5mg BID for PE treatment Disposition: [id number] HOME [facility] Time spent for discharge: 34 minutes Core Measure Documentation - Palliative Care Palliative Care/ Comfort Measures: Not Applicable - Core Measures Any of the following diagnoses?: none Exam - Physical Exam Narrative exam: General appearance: Present: no acute distress - EENT Eyes: Present: PERRL - Respiratory Respiratory: left: diminished, - Cardiovascular Rhythm: regular Heart Sounds: Present: S1 & S2 - Extremities Extremity abnormal: edema - Abdominal General gastrointestinal: soft, non-tender, non-distended - Neurologic Neurologic: does not follow commend, patient appears lethargic Skin: no rash - Constitutional Vitals: Temp Pulse Resp BP Pulse Ox 97.6 F 113 H 22 122/68 97 01/23/20 06:10 01/23/20 06:10 01/23/20 06:10 01/23/20 06:10 01/23/20 06:10 Plan Activity: other (bedrest) Diet: other (TF) Special Instructions: record blood sugar diary Additional Instructions: Plan to d/c on zosyn 4.5 g IV every 8 hours total 6 weeks till 02/27/2020 Care Plan Goals: Cleanse right heel, sacrum, right ear, and left ear wounds with wound cleanser or normal saline. Apply foam dressing to right heel, right ear, and left ear wounds, change dressing weekly and PRN. Cleanse sacral wound with wound cleanser or normal saline, pack with black foam, apply negative pressure wound therapy with setting at 125mmhg continuous twice weekly on Tuesdays and Fridays. Please offload sacrum, right ear, and left ear. Apply heel offloading boots bilaterally. Follow up with: PRIMARY CARE, [Primary Care Provider] - 3-5 Days Prescriptions: Metoprolol [Lopressor TAB] 12.5 mg PO BID #60 tablet
[2020-01-23] MEDS: DONEPEZIL 10 MG TAB PO SCH (23:09)
[2020-01-23] MEDS: MIRTAZAPINE 15 MG TAB PO SCH (23:09)
[2020-01-23] MEDS: traZODone 50 MG TAB PO SCH (23:10)
[2020-01-24] MEDS: PIPERACIL/TAZOBACTA 4.5/NS 100 4.5 GM/100 ML VIAL IV SCH ×3 (05:38→17:00)
[2020-01-24] MEDS: APIXABAN 5 MG TAB PO SCH ×2 (09:26→22:27)
[2020-01-24] MEDS: METOPROLOL TARTRATE 25 MG TAB PO SCH ×2 (09:27→22:28)
[2020-01-24] MEDS: MEGESTROL 400 MG/10 ML ORAL LIQD PO SCH (09:27)
--- NOTE | 2020-01-24 13:20 | Progress Note ---
Assessment and Plan -- Hydropneumothorax, not POA Patient developed hydropneumothorax on 01/15. Surgery consulted and patient had a chest tube placed on 01/15. Surgery following. s/p chest tube removed 01/22 --Acute respiratory failure, not POA likely from Hydropneumothorax, resolved now on RA -- Hypernatremia, Resolved -- Sepsis, likely UTI and infected Sacral decubitus ulcer On zosyn Monitor vital signs closely -- UTI (urinary tract infection) Continue antibiotics -- Bilateral pulmonary embolism Had pulmonary embolism 7 months ago. As per pulmonology, patient needs indefinite anticoagulation Continue Eliquis 5 mg twice daily. --Sacral decubitus ulcer, infected This was present on admission Now status post wound debridement on 01/15. Wound vac in place Continue wound care ID consulted Surgery on board -- Uncontrolled diabetes mellitus DM management with SSI, TF -- Dementia Continue donepezil -- Moderate protein-calorie malnutrition She is not eating well and is getting feeds through the NG tube. Discussed with - this problem has been chronic and he is open to getting a PEG placement to supplement her intake PEG placed 01/13. Now on tube feeds -- DVT prophylaxis On eliquis 5mg BID for PE treatment Brief history: Patient is a 69-year-old -[place] female with known history of dementia, diabetes mellitus and pulmonary embolism was brought into the emergency room for decreased responsiveness, lethargy and hypotension. According to home health nurse patient has become less active and blood pressure was said to be low. She was brought to the emergency room for evaluation. Further history cannot be obtained from patient. Upon arrival in the emergency room patient had a low-grade fever. Work-up in the emergency room reveals elevated white blood cell count of 13.5, elevated BUN and creatinine 30 and 1.1 respectively. Found to be dehydrated and hypernatremic. Urinalysis shows UTI. Patient subsequently started on IV fluid and empiric IV antibiotics admitted for further evaluation. 01/08. Patient seen and examined at bedside this month. Patient not talking much this morning. Discussed case with patient spouse [patient usually does not talk much due to possible underlying dementia]. Started patient on her home medications today. Sodium slightly elevated from yesterday-162. Switch to hypotonic solution after resuscitation. Monitor BMP 01/09. More awake today. Sodium is improving. Has tachycardia today. Received a dose of metoprolol and is on telemetry. No arrhythmias noted. Has no congestion on chest xray. Will continue IV hydration for now. She needs assistance with meals due to advanced dementia. 01/10. Sodium is improving, will speak to family about diet and possible NGT and medication, Her dementia may be the prohibiting factor. Anticipate discharge in 24 to 48 hrs. ?IF SHE IS BEDBOUND. Continue Antibiotics. 01/11. Patient seen and examined at bedside this morning. She is not eating. Discussed with patients - plan for PEG placement. GI consulted. Blood culture from 01/07 grew GN rods. Repeat Blood culture sent. She is on ceftriaxone. Her sodium level is improving gradually. 01/12. Plan for tube placement. GI on board. 01/13. Patient had temperature 101 overnight. Patient has been on appropriate antibiotics for UTI. Urine culture has been reviewed. This point need to evaluate for other etiology of fever. Surgery consulted for evaluation for need for wound debridement. Plan for PEG tube placement today. 01/14. PEG tube placed. Surgery and ID on board. Plan for wound debridement as per surgery 01/15. Plan for debridement today as per surgery. 01/15 2pm. Patient noted to be tachycardic and slightly hypoxic after having sacral decubitus debridement. She was placed on Ventimask. EKG performed for tachycardia shows sinus tachycardia. Patient received bolus 500 cc and 1 dose of metoprolol with slight improvement. Stat chest x-ray performed shows new small to moderate hydropneumothorax. Discussed with microbiology supervisor. Patient had a left-sided chest tube placed by surgery for pneumothorax. 01/16. Patient seen and examined at bedside this morning. Patient is awake looks comfortable. Has left-sided chest tube in place. Repeat x-ray ordered this morning and it shows no significant change from yesterday. Surgery is following for chest tube management. Will discuss with today Plan to resume Eliquis when okay with surgery 01/17. No change in medical condition. She is still tachy. Cardiology evaluation appreciated. Wound vac to sacral wound in place. Left chest tube in place. Surgery following. Ordered one dose of albumin today. I updated patients this PM. ID consulted 01/18. Antibiotics switched to zosyn. Duration of antibiotics to be determined. 01/19; Chest Tube placed on waterseal today, plan to repeat CXR tomorrow. patient on wound vac and ventimask 01/20: Chest tube still with moderate serous drainage. planned to trend output for one more day and dc CT if trending down. repeat CXR in am 01/21: Chest tube to be discontinued today. Repeat CXR in am after removing chest tube. if clinically stable then possible d/c in the am. 01/22: chest tube removed yesterday. Patient now weaned off to RA. Planned for d/c today but family not ready to accept the patient before Sunday. CM working on d/c planning. Subjective Date of service: 01/23/20 Principal diagnosis: Bacteremia Interval history: Patient seen and examined patient on RA, chest tube removed yesterday does not follow commend tolerating TF Objective - Exam Narrative Exam: General appearance: Present: no acute distress - EENT Eyes: Present: PERRL - Respiratory Respiratory: left: diminished, - Cardiovascular Rhythm: regular Heart Sounds: Present: S1 & S2 - Extremities Extremity abnormal: edema - Abdominal General gastrointestinal: soft, non-tender, non-distended - Neurologic Neurologic: does not follow commend, patient appears lethargic Extremity: UE edema - Constitutional Vitals: Vital Signs - 12hr 01/24/20 01/24/20 06:30 11:07 Temperature 97.9 F 99.0 F Pulse Rate 96 H 95 H Respiratory 20 20 Rate Blood Pressure 123/68 111/71 O2 Sat by Pulse 90 95 Oximetry - Labs CBC & Chem 7: 01/23/20 06:10 01/23/20 06:10 Labs: Abnormal lab results 01/23/20 01/24/20 Range/Units 22:45 11:24 POC Glucose 180 H 182 H (70-105)
--- NOTE | 2020-01-24 13:23 | Progress Note ---
Assessment and Plan -- Hydropneumothorax, not POA Patient developed hydropneumothorax on 01/15. Surgery consulted and patient had a chest tube placed on 01/15. Surgery following. s/p chest tube removed 01/22 --Acute respiratory failure, not POA likely from Hydropneumothorax, resolved now on RA -- Hypernatremia, Resolved -- Sepsis, likely UTI and infected Sacral decubitus ulcer On zosyn Monitor vital signs closely -- UTI (urinary tract infection) Continue antibiotics -- Bilateral pulmonary embolism Had pulmonary embolism 7 months ago. As per pulmonology, patient needs indefinite anticoagulation Continue Eliquis 5 mg twice daily. --Sacral decubitus ulcer, infected This was present on admission Now status post wound debridement on 01/15. Wound vac in place Continue wound care ID consulted Surgery on board -- Uncontrolled diabetes mellitus DM management with SSI, TF -- Dementia Continue donepezil -- Moderate protein-calorie malnutrition She is not eating well and is getting feeds through the NG tube. Discussed with - this problem has been chronic and he is open to getting a PEG placement to supplement her intake PEG placed 01/13. Now on tube feeds -- DVT prophylaxis On eliquis 5mg BID for PE treatment Brief history: Patient is a 69-year-old -[place] female with known history of dementia, diabetes mellitus and pulmonary embolism was brought into the emergency room for decreased responsiveness, lethargy and hypotension. According to home health nurse patient has become less active and blood pressure was said to be low. She was brought to the emergency room for evaluation. Further history cannot be obtained from patient. Upon arrival in the emergency room patient had a low-grade fever. Work-up in the emergency room reveals elevated white blood cell count of 13.5, elevated BUN and creatinine 30 and 1.1 respectively. Found to be dehydrated and hypernatremic. Urinalysis shows UTI. Patient subsequently started on IV fluid and empiric IV antibiotics admitted for further evaluation. 01/08. Patient seen and examined at bedside this month. Patient not talking much this morning. Discussed case with patient spouse [patient usually does not talk much due to possible underlying dementia]. Started patient on her home medications today. Sodium slightly elevated from yesterday-162. Switch to hypotonic solution after resuscitation. Monitor BMP 01/09. More awake today. Sodium is improving. Has tachycardia today. Received a dose of metoprolol and is on telemetry. No arrhythmias noted. Has no congestion on chest xray. Will continue IV hydration for now. She needs assistance with meals due to advanced dementia. 01/10. Sodium is improving, will speak to family about diet and possible NGT and medication, Her dementia may be the prohibiting factor. Anticipate discharge in 24 to 48 hrs. ?IF SHE IS BEDBOUND. Continue Antibiotics. 01/11. Patient seen and examined at bedside this morning. She is not eating. Discussed with patients - plan for PEG placement. GI consulted. Blood culture from 01/07 grew GN rods. Repeat Blood culture sent. She is on ceftriaxone. Her sodium level is improving gradually. 01/12. Plan for tube placement. GI on board. 01/13. Patient had temperature 101 overnight. Patient has been on appropriate antibiotics for UTI. Urine culture has been reviewed. This point need to evaluate for other etiology of fever. Surgery consulted for evaluation for need for wound debridement. Plan for PEG tube placement today. 01/14. PEG tube placed. Surgery and ID on board. Plan for wound debridement as per surgery 01/15. Plan for debridement today as per surgery. 01/15 2pm. Patient noted to be tachycardic and slightly hypoxic after having sacral decubitus debridement. She was placed on Ventimask. EKG performed for tachycardia shows sinus tachycardia. Patient received bolus 500 cc and 1 dose of metoprolol with slight improvement. Stat chest x-ray performed shows new small to moderate hydropneumothorax. Discussed with chief contract officer. Patient had a left-sided chest tube placed by surgery for pneumothorax. 01/16. Patient seen and examined at bedside this morning. Patient is awake looks comfortable. Has left-sided chest tube in place. Repeat x-ray ordered this morning and it shows no significant change from yesterday. Surgery is following for chest tube management. Will discuss with today Plan to resume Eliquis when okay with surgery 01/17. No change in medical condition. She is still tachy. Cardiology evaluation appreciated. Wound vac to sacral wound in place. Left chest tube in place. Surgery following. Ordered one dose of albumin today. I updated patients this PM. ID consulted 01/18. Antibiotics switched to zosyn. Duration of antibiotics to be determined. 01/19; Chest Tube placed on waterseal today, plan to repeat CXR tomorrow. patient on wound vac and ventimask 01/20: Chest tube still with moderate serous drainage. planned to trend output for one more day and dc CT if trending down. repeat CXR in am 01/21: Chest tube to be discontinued today. Repeat CXR in am after removing chest tube. if clinically stable then possible d/c in the am. 01/22: chest tube removed yesterday. Patient now weaned off to RA. Planned for d/c today but family not ready to accept the patient before Sunday. CM working on d/c planning. 01/23: plan to d/c Sunday with 24/7 family care. family stated they cannot provided 24/7 care before Sunday. patient tolerating diet, off chest tube, on RA Subjective Date of service: 01/24/20 Principal diagnosis: Bacteremia Interval history: Patient seen and examined patient on RA, chest tube removed yesterday does not follow commend tolerating TF Objective - Exam Narrative Exam: General appearance: Present: no acute distress - EENT Eyes: Present: PERRL - Respiratory Respiratory: left: diminished, - Cardiovascular Rhythm: regular Heart Sounds: Present: S1 & S2 - Extremities Extremity abnormal: edema - Abdominal General gastrointestinal: soft, non-tender, non-distended - Neurologic Neurologic: does not follow commend, patient appears lethargic Extremity: UE edema - Constitutional Vitals: Vital Signs - 12hr 01/24/20 01/24/20 06:30 11:07 Temperature 97.9 F 99.0 F Pulse Rate 96 H 95 H Respiratory 20 20 Rate Blood Pressure 123/68 111/71 O2 Sat by Pulse 90 95 Oximetry - Labs CBC & Chem 7: 01/23/20 06:10 01/23/20 06:10 Labs: Abnormal lab results 01/23/20 01/24/20 Range/Units 22:45 11:24 POC Glucose 180 H 182 H (70-105)
[2020-01-24] MEDS: traZODone 50 MG TAB PO SCH (22:28)
[2020-01-24] MEDS: DONEPEZIL 10 MG TAB PO SCH (22:28)
[2020-01-24] MEDS: MIRTAZAPINE 15 MG TAB PO SCH (22:29)
[2020-01-25] MEDS: INSULIN REGULAR, HUMAN 100 UNIT/ML 3ML VIAL SUB-Q SCH ×4 (00:21→16:30)
[2020-01-25] MEDS: PIPERACIL/TAZOBACTA 4.5/NS 100 4.5 GM/100 ML VIAL IV SCH ×5 (08:41→21:25)
[2020-01-25] MEDS: APIXABAN 5 MG TAB PO SCH ×2 (09:30→21:26)
[2020-01-25] MEDS: METOPROLOL TARTRATE 25 MG TAB PO SCH ×2 (09:30→22:15)
[2020-01-25] MEDS: MEGESTROL 400 MG/10 ML ORAL LIQD PO SCH (09:31)
--- NOTE | 2020-01-25 12:58 | Progress Note ---
Assessment and Plan -- Hydropneumothorax, not POA Patient developed hydropneumothorax on 01/15. Surgery consulted and patient had a chest tube placed on 01/15. Surgery following. s/p chest tube removed 01/22 --Acute respiratory failure, not POA likely from Hydropneumothorax, resolved now on RA -- Hypernatremia, Resolved -- Sepsis, likely UTI and infected Sacral decubitus ulcer On zosyn now, cont to Monitor vital signs closely -- UTI (urinary tract infection) Continue antibiotics -- Bilateral pulmonary embolism Had pulmonary embolism 7 months ago. As per pulmonology, patient needs indefinite anticoagulation Continue Eliquis 5 mg twice daily. --Sacral decubitus ulcer, infected This was present on admission Now status post wound debridement on 01/15. Wound vac in place Continue wound care ID consulted, cont zosyn 4.5 g IV every 8 hours total 6 weeks till 02/27/2020 on discharge. -- Uncontrolled diabetes mellitus DM management with SSI, TF -- Dementia Continue donepezil -- Moderate protein-calorie malnutrition She is not eating well and is getting feeds through the NG tube. Discussed with - this problem has been chronic and he is open to getting a PEG placement to supplement her intake PEG placed 01/13. Now on tube feeds -- DVT prophylaxis On eliquis 5mg BID for PE treatment Brief history: Patient is a 69-year-old -[place] female with known history of dementia, diabetes mellitus and pulmonary embolism was brought into the emergency room for decreased responsiveness, lethargy and hypotension. According to home health nurse patient has become less active and blood pressure was said to be low. She was brought to the emergency room for evaluation. Further history cannot be obtained from patient. Upon arrival in the emergency room patient had a low-grade fever. Work-up in the emergency room reveals elevated white blood cell count of 13.5, elevated BUN and creatinine 30 and 1.1 respectively. Found to be dehydrated and hypernatremic. Urinalysis shows UTI. Patient subsequently started on IV fluid and empiric IV antibiotics admitted for further evaluation. 01/08. Patient seen and examined at bedside this month. Patient not talking much this morning. Discussed case with patient spouse [patient usually does not talk much due to possible underlying dementia]. Started patient on her home medications today. Sodium slightly elevated from yesterday-162. Switch to hypotonic solution after resuscitation. Monitor BMP 01/09. More awake today. Sodium is improving. Has tachycardia today. Received a dose of metoprolol and is on telemetry. No arrhythmias noted. Has no congestion on chest xray. Will continue IV hydration for now. She needs assistance with me als due to advanced dementia. 01/10. Sodium is improving, will speak to family about diet and possible NGT and medication, Her dementia may be the prohibiting factor. Anticipate discharge in 24 to 48 hrs. ?IF SHE IS BEDBOUND. Continue Antibiotics. 01/11. Patient seen and examined at bedside this morning. She is not eating. Discussed with patients - plan for PEG placement. GI consulted. Blood culture from 01/07 grew GN rods. Repeat Blood culture sent. She is on ceftriaxone. Her sodium level is improving gradually. 01/12. Plan for tube placement. GI on board. 01/13. Patient had temperature 101 overnight. Patient has been on appropriate antibiotics for UTI. Urine culture has been reviewed. This point need to evaluate for other etiology of fever. Surgery consulted for evaluation for need for wound debridement. Plan for PEG tube placement today. 01/14. PEG tube placed. Surgery and ID on board. Plan for wound debridement as per surgery 01/15. Plan for debridement today as per surgery. 01/15. 2pm. Patient noted to be tachycardic and slightly hypoxic after having sacral decubitus debridement. She was placed on Ventimask. EKG performed for tachycardia shows sinus tachycardia. Patient received bolus 500 cc and 1 dose of metoprolol with slight improvement. Stat chest x-ray performed shows new small to moderate hydropneumothorax. Discussed with trains dispatcher supervisor. Patient had a left-sided chest tube placed by surgery for pneumothorax. 01/16. Patient seen and examined at bedside this morning. Patient is awake looks comfortable. Has left-sided chest tube in place. Repeat x-ray ordered this morning and it shows no significant change from yesterday. Surgery is following for chest tube management. Will discuss with today Plan to resume Eliquis when okay with surgery 01/17. No change in medical condition. She is still tachy. Cardiology evaluation appreciated. Wound vac to sacral wound in place. Left chest tube in place. Surgery following. Ordered one dose of albumin today. I updated patients this PM. ID consulted 01/18. Antibiotics switched to zosyn. Duration of antibiotics to be determined. 01/19; Chest Tube placed on waterseal today, plan to repeat CXR tomorrow. patient on wound vac and ventimask 01/20: Chest tube still with moderate serous drainage. planned to trend output for one more day and dc CT if trending down. repeat CXR in am 01/21: Chest tube to be discontinued today. Repeat CXR in am after removing chest tube. if clinically stable then possible d/c in the am. 01/22: chest tube removed yesterday. Patient now weaned off to RA. Planned for d/c today but family not ready to accept the patient before Sunday. CM working on d/c planning. 01/23: plan to d/c Sunday with 24/7 family care. family stated they cannot provided 24/7 care before Sunday. patient tolerating diet, off chest tube, on RA 01/24: plan to d/c Sunday with 24/7 family care. cont supportive care. discussed with her in details. Subjective Date of service: 01/25/20 Principal diagnosis: Bacteremia Interval history: Patient seen and examined patient on RA, does not follow commend, nonverbal tolerating TF Objective - Exam Narrative Exam: General appearance: Present: no acute distress - EENT Eyes: Present: PERRL - Respiratory Respiratory: left: diminished, - Cardiovascular Rhythm: regular Heart Sounds: Present: S1 & S2 - Extremities Extremity abnormal: edema - Abdominal General gastrointestinal: soft, non-tender, non-distended - Neurologic Neurologic: does not follow commend, patient appears lethargic Extremity: UE edema - Constitutional Vitals: Vital Signs - 12hr 01/25/20 01/25/20 01/25/20 06:29 09:30 11:18 Temperature 98.0 F 98.0 F Pulse Rate 95 H 95 H 86 Respiratory 18 21 Rate Blood Pressure 121/72 121/72 151/86 O2 Sat by Pulse 95 98 Oximetry 01/25/20 11:19 Temperature Pulse Rate 77 Respiratory Rate Blood Pressure O2 Sat by Pulse 100 Oximetry - Labs CBC & Chem 7: 01/23/20 06:10 01/23/20 06:10 Labs: Abnormal lab results 01/24/20 01/24/20 01/25/20 Range/Units 16:41 23:11 07:12 POC Glucose 177 H 142 H 135 H (70-105) 01/25/20 Range/Units 11:35 POC Glucose 142 H (70-105)
[2020-01-25] MEDS: traZODone 50 MG TAB PO SCH (21:25)
[2020-01-25] MEDS: MIRTAZAPINE 15 MG TAB PO SCH (21:25)
[2020-01-25] MEDS: DONEPEZIL 10 MG TAB PO SCH (21:27)
[2020-01-25] MEDS: FLUTICASONE PROPIONATE NASAL SPRAY 16 GM NS PRN (21:41)
[2020-01-26] MEDS: INSULIN REGULAR, HUMAN 100 UNIT/ML 3ML VIAL SUB-Q SCH ×4 (00:08→16:30)
[2020-01-26] MEDS: FLUTICASONE PROPIONATE NASAL SPRAY 16 GM NS PRN (06:09)
[2020-01-26] MEDS: APIXABAN 5 MG TAB PO SCH (09:55)
[2020-01-26] MEDS: METOPROLOL TARTRATE 25 MG TAB PO SCH (09:55)
[2020-01-26] MEDS: MEGESTROL 400 MG/10 ML ORAL LIQD PO SCH (09:57)
[2020-01-26] MEDS: PIPERACIL/TAZOBACTA 4.5/NS 100 4.5 GM/100 ML VIAL IV SCH ×3 (14:00→23:15)
--- NOTE | 2020-01-26 16:29 | Progress Note ---
Assessment and Plan -- Hydropneumothorax, not POA Patient developed hydropneumothorax on 01/15. Surgery consulted and patient had a chest tube placed on 01/15. Surgery following. s/p chest tube removed 01/22 --Acute respiratory failure, not POA likely from Hydropneumothorax, s/p chest tube - improved o2 saturation developed recurrent pleural effusion today - order for thoracentesis, iv lasix -- Hypernatremia, Resolved -- Sepsis, likely UTI and infected Sacral decubitus ulcer On zosyn now, cont to Monitor vital signs closely -- UTI (urinary tract infection) treated with abx -- Bilateral pulmonary embolism Had pulmonary embolism 7 months ago. As per pulmonology, patient needs indefinite anticoagulation will hold eliquis for now and place heparin drip as patient will need thoracentesis --Sacral decubitus ulcer, infected This was present on admission Now status post wound debridement on 01/15. Wound vac in place Continue wound care ID consulted, cont zosyn 4.5 g IV every 8 hours total 6 weeks till 02/27/2020 on discharge. -- Uncontrolled diabetes mellitus DM management with SSI, TF -- Dementia Continue donepezil -- Moderate protein-calorie malnutrition She is not eating well and is getting feeds through the NG tube. Discussed with - this problem has been chronic and he is open to getting a PEG placement to supplement her intake PEG placed 01/13. Now on tube feeds -- DVT prophylaxis heparin drip for PE treatment Brief history: Patient is a 69-year-old -[place] female with known history of dementia, diabetes mellitus and pulmonary embolism was brought into the emergency room for decreased responsiveness, lethargy and hypotension. According to home health nurse patient has become less active and blood pressure was said to be low. She was brought to the emergency room for evaluation. Further history cannot be obtained from patient. Upon arrival in the emergency room patient had a low-grade fever. Work-up in the emergency room reveals elevated white blood cell count of 13.5, elevated BUN and creatinine 30 and 1.1 respectively. Found to be dehydrated and hy pernatremic. Urinalysis shows UTI. Patient subsequently started on IV fluid and empiric IV antibiotics admitted for further evaluation. 01/08. Patient seen and examined at bedside this month. Patient not talking much this morning. Discussed case with patient spouse [patient usually does not talk much due to possible underlying dementia]. Started patient on her home medications today. Sodium slightly elevated from yesterday-162. Switch to hypotonic solution after resuscitation. Monitor BMP 01/09. More awake today. Sodium is improving. Has tachycardia today. Received a dose of metoprolol and is on telemetry. No arrhythmias noted. Has no congestion on chest xray. Will continue IV hydration for now. She needs assistance with meals due to advanced dementia. 01/10. Sodium is improving, will speak to family about diet and possible NGT and medication, Her dementia may be the prohibiting factor. Anticipate discharge in 24 to 48 hrs. ?IF SHE IS BEDBOUND. Continue Antibiotics. 01/11. Patient seen and examined at bedside this morning. She is not eating. Discussed with patients - plan for PEG placement. GI consulted. Blood culture from 01/07 grew GN rods. Repeat Blood culture sent. She is on ceftriaxone. Her sodium level is improving gradually. 01/12. Plan for tube placement. GI on board. 01/13. Patient had temperature 101 overnight. Patient has been on appropriate antibiotics for UTI. Urine culture has been reviewed. This point need to evaluate for other etiology of fever. Surgery consulted for evaluation for need for wound debridement. Plan for PEG tube placement today. 01/14. PEG tube placed. Surgery and ID on board. Plan for wound debridement as per surgery 01/15. Plan for debridement today as per surgery. 01/15. 2pm. Patient noted to be tachycardic and slightly hypoxic after having sacral decubitus debridement. She was placed on Ventimask. EKG performed for tachycardia shows sinus tachycardia. Patient received bolus 500 cc and 1 dose of metoprolol with slight improvement. Stat chest x-ray performed shows new small to moderate hy dropneumothorax. Discussed with design engineering intern. Patient had a left-sided chest tube placed by surgery for pneumothorax. 01/16. Patient seen and examined at bedside this morning. Patient is awake look s comfortable. Has left-sided chest tube in place. Repeat x-ray ordered this morning and it shows no significant change from yesterday. Surgery is following for chest tube management. Will discuss with today Plan to resume Eliquis when okay with surgery 01/17. No change in medical condition. She is still tachy. Cardiology evaluation appreciated. Wound vac to sacral wound in place. Left chest tube in place. Surgery following. Ordered one dose of albumin today. I updated patients this PM. ID consulted 01/18. Antibiotics switched to zosyn. Duration of antibiotics to be determined. 01/19; Chest Tube placed on waterseal today, plan to repeat CXR tomorrow. patient on wound vac and ventimask 01/20: Chest tube still with moderate serous drainage. planned to trend output for one more day and dc CT if trending down. repeat CXR in am 01/21: Chest tube to be discontinued today. Repeat CXR in am after removing chest tube. if clinically stable then possible d/c in the am. 01/22: chest tube removed yesterday. Patient now weaned off to RA. Planned for d/c today but family not ready to accept the patient before Sunday. CM working on d/c planning. 01/23: plan to d/c Sunday with 24/7 family care. family stated they cannot provided 24/7 care before Sunday. patient tolerating diet, off chest tube, on RA 01/24: plan to d/c Sunday with 24/7 family care. cont supportive care. discussed with her in details. 01/25: noted to be hypoxic in RA, repeat CXR showed leftsided huge pleural effusion. ordered for thoracentesis, hold eliquis - start on heparin drip. Subjective Date of service: 01/26/20 Principal diagnosis: Bacteremia Interval history: Patient seen and examined patient became hypoxic again today does not follow commend, nonverbal tolerating TF Objective - Exam Narrative Exam: General appearance: Present: mild distress - EENT Eyes: Present: PERRL - Respiratory Respiratory: left: diminished, - Cardiovascular Rhythm: regular Heart Sounds: Present: S1 & S2 - Extremities Extremity abnormal: edema - Abdominal General gastrointestinal: soft, non-tender, non-distended - Neurologic Neurologic: does not follow commend, patient appears lethargic Skin: no rash - Constitutional Vitals: Vital Signs - 12hr 01/26/20 01/26/20 05:47 11:21 Temperature 97.6 F Pulse Rate 91 H 88 Respiratory 22 Rate Blood Pressure 119/74 99/64 O2 Sat by Pulse 92 90 Oximetry - Labs CBC & Chem 7: 01/27/20 06:30 01/27/20 06:30 Labs: Abnormal lab results 01/25/20 01/26/20 01/26/20 Range/Units 16:33 00:04 11:35 POC Glucose 247 H 233 H 200 H (70-105)
[2020-01-26] MEDS: FUROSEMIDE 20 MG/2 ML INJ IV SCH ×2 (17:01→18:03)
[2020-01-26 17:20] LABS: Hemoglobin 7.4 gm/dl (10.1-14.3)
[2020-01-26 17:31] LABS: INR 1.5 (0.87-1.13)
[2020-01-26 17:32] LABS: Partial Thromboplastin Time 33.9 Sec. (24.2-36.6)
[2020-01-26] MEDS: DEXTROSE 50% IN WATER (25GM) 50 ML SYRINGE IV PRN (17:44)
[2020-01-26] MEDS: HEPARIN/ 0.45% NACL DRIP 25,000 UNIT/500 ML BAG IV SCH ×2 (17:55→23:20)
--- NOTE | 2020-01-26 18:07 | Consultation ---
History of Present Illness Consult date: 01/26/20 Requesting physician: DEONTE LAUREANO Reason for consult: other (Respiratory Failure) History of present illness: PCCM CONSULT NOTE (Full dictation # [id number]) Please see dictated notes for full details Past History Past Medical History: diabetes, hyperlipidemia, pulmonary embolism, other (Dementia,Asthma) Past Surgical History: No surgical history Social history: no significant social history Family history: no significant family history Medications and Allergies Allergies Allergy/AdvReac Type Severity Reaction Status Date / Time No Known Allergies Allergy Unverified 06/23/14 09:54 Home Medications Medication Instructions Recorded Confirmed Last Taken Type AtorvaSTATin 10 mg PO QHS 05/06/19 01/23/20 05/05/19 History Donepezil HCl [Donepezil HCl Odt] 10 mg PO QHS 05/06/19 01/23/20 Unknown History LORazepam [Lorazepam] 0.5 mg PO BID 05/06/19 01/23/20 Unknown History Melatonin [Melatonin 10MG CAP] 10 mg PO QHS 05/06/19 01/23/20 05/05/19 History Metformin HCl [Metformin HCl ER] 500 mg PO Q2D 05/06/19 01/23/20 05/05/19 History Apixaban [Eliquis] 5 mg PO BID 30 Days #60 tablet 05/08/19 01/23/20 Unknown Rx Metoprolol [Lopressor TAB] 12.5 mg PO BID #60 tablet 01/23/20 Unknown Rx Active Meds: Active Medications Acetaminophen (Tylenol) 650 mg PO Q4H PRN PRN Reason: Pain MILD(1-3)/Fever >100.5/GARCIA Last Admin: 01/18/20 06:03 Dose: 650 mg Documented by: Lipase/Protease/Amylase (Donovan Sommers 10,500 Unit) 1 each FEEDTUBE PRN PRN PRN Reason: For Clogged Feeding Tube Atorvastatin Calcium (Atorvastatin) 10 mg PO QHS [facility] Last Admin: 01/25/20 21:25 Dose: 10 mg Documented by: Dextrose (D50w (25gm) Syringe) 0 ml IV Q30MIN PRN; Protocol PRN Reason: Hypoglycemia Last Admin: 01/26/20 17:44 Dose: 25 ml Documented by: Donepezil HCl (Aricept) 10 mg PO QHS [facility] Last Admin: 01/25/20 21:27 Dose: 10 mg Documented by: Fluticasone Propionate (Flonase) 100 mcg NS QDAY PRN PRN Reason: Nasal Congestion Last Admin: 01/26/20 06:09 Dose: 100 mcg Documented by: Furosemide (Lasix) 20 mg IV 0600,1800 [facility] Last Admin: 01/26/20 18:03 Dose: Not Given Documented by: Piperacillin Sod/Tazobactam Sod (Zosyn/Ns 4.5gm/100ml) 4.5 gm in 100 mls @ 200 mls/hr IV Q8HR [facility]; Protocol Stop: 02/27/20 22:29 Last Admin: 01/26/20 14:32 Dose: 200 mls/hr Documented by: Heparin Sodium/Sodium Chloride (Heparin/ 0.45% Nacl-25,000 Unit/500 Ml) 25,000 unit in 500 mls @ 18 mls/hr IV TITR [facility]; Protocol Last Admin: 01/26/20 17:55 Dose: 900 units/hr, 18 mls/hr Documented by: Sodium Chloride (Nacl 0.9% 500 Ml) 500 mls @ 999 mls/hr IV ONCE ONE Stop: 01/26/20 19:30 Insulin Human Regular (Humulin R) 0 unit SUB-Q ACHS [facility]; Protocol Last Admin: 01/26/20 16:30 Dose: Not Given Documented by: Magnesium Hydroxide (Milk Of Magnesia) 30 ml PO Q4H PRN PRN Reason: Constipation Megestrol Acetate (Megestrol) 400 mg PO QDAY [facility] Last Admin: 01/26/20 09:57 Dose: 400 mg Documented by: Metoprolol Tartrate (Metoprolol) 12.5 mg PO BID [facility] Last Admin: 01/26/20 09:55 Dose: 12.5 mg Documented by: Mirtazapine (Remeron) 15 mg PO QHS [facility] Last Admin: 01/25/20 21:25 Dose: 15 mg Documented by: Ondansetron HCl (Zofran) 4 mg IV Q8H PRN PRN Reason: Nausea And Vomiting Simple Syrup (Simple Syrup) 15 ml FEEDTUBE PRN PRN PRN Reason: Hypoglycemia Simple Syrup (Simple Syrup) 30 ml FEEDTUBE PRN PRN PRN Reason: Hypoglycemia Sodium Bicarbonate (Sodium Bicarbonate) 325 mg FEEDTUBE PRN PRN PRN Reason: For Clogged Feeding Tube Sodium Chloride (Sodium Chloride Flush Syringe 10 Ml) 10 ml IV BID [facility] Last Admin: 01/26/20 09:56 Dose: 10 ml Documented by: Sodium Chloride (Sodium Chloride Flush Syringe 10 Ml) 10 ml IV PRN PRN PRN Reason: LINE FLUSH Trazodone HCl (Desyrel) 25 mg PO QHS [facility] Last Admin: 01/25/20 21:25 Dose: 25 mg Documented by: Physical Examination Vital signs: Vital Signs Pulse Resp BP Pulse Ox 125 H 11 L 123/74 99 01/08/20 15:30 01/08/20 15:30 01/08/20 15:30 01/08/20 15:30 Results - Laboratory Findings CBC and BMP: 01/26/20 16:30 01/23/20 06:10 PT/INR, D-dimer PT 18.4 Sec. (12.2-14.9) H 01/26/20 16:30 INR 1.50 (0.87-1.13) H 01/26/20 16:30 Abnormal lab findings: Abnormal Labs 01/08/20 01/08/20 01/08/20 16:29 16:29 16:29 WBC 13.5 H RBC Hgb Hct MCHC RDW 15.5 H Plt Count Lymph % (Auto) Lymph # Seg Neutrophils % Seg Neuts % (Manual) 85.0 H Lymphocytes % (Manual) 11.0 L Seg Neutrophils # Seg Neutrophils # Man 11.5 H PT INR Sodium 161 H* Potassium Chloride 125.5 H Carbon Dioxide 20 L BUN 30 H Creatinine Glucose 115 H POC Glucose Lactic Acid 2.20 H* Calcium 7.9 L AST 48 H Total Protein Albumin 2.5 L Urine WBC (Auto) 01/08/20 01/08/20 01/08/20 19:02 23:30 Unknown WBC RBC Hgb Hct MCHC RDW Plt Count Lymph % (Auto) Lymph # Seg Neutrophils % Seg Neuts % (Manual) Lymphocytes % (Manual) Seg Neutrophils # Seg Neutrophils # Man PT INR Sodium Potassium Chloride Carbon Dioxide BUN Creatinine Glucose POC Glucose Lactic Acid 2.10 H* 2.50 H* Calcium AST Total Protein Albumin Urine WBC (Auto) 11.0 H 01/09/20 01/09/20 01/09/20 00:19 00:54 05:52 WBC 13.5 H RBC 3.02 L Hgb 9.0 L D Hct 27.4 L D MCHC RDW Plt Count Lymph % (Auto) 9.1 L Lymph # Seg Neutrophils % 87.6 H Seg Neuts % (Manual) Lymphocytes % (Manual) Seg Neutrophils # 11.8 H Seg Neutrophils # Man PT INR Sodium Potassium Chloride Carbon Dioxide BUN Creatinine Glucose POC Glucose 118 H 116 H Lactic Acid Calcium AST Total Protein Albumin Urine WBC (Auto) 01/09/20 01/09/20 01/09/20 05:52 05:52 13:03 WBC RBC Hgb Hct MCHC RDW Plt Count Lymph % (Auto) Lymph # Seg Neutrophils % Seg Neuts % (Manual) Lymphocytes % (Manual) Seg Neutrophils # Seg Neutrophils # Man PT 17.1 H INR 1.36 H Sodium 162 H* Potassium 3.0 L D Chloride 128.3 H Carbon Dioxide BUN 23 H Creatinine Glucose POC Glucose 55 L Lactic Acid Calcium 7.6 L AST Total Protein Albumin Urine WBC (Auto) 01/09/20 01/09/20 01/09/20 21:22 21:50 22:28 WBC RBC Hgb Hct MCHC RDW Plt Count Lymph % (Auto) Lymph # Seg Neutrophils % Seg Neuts % (Manual) Lymphocytes % (Manual) Seg Neutrophils # Seg Neutrophils # Man PT INR Sodium 159 H Potassium 5.1 H D Chloride 128.5 H Carbon Dioxide 16 L BUN 23 H Creatinine Glucose 51 L POC Glucose 52 L 106 H Lactic Acid Calcium 8.2 L AST Total Protein Albumin Urine WBC (Auto) 01/10/20 01/10/20 01/10/20 05:23 09:11 10:10 WBC 13.4 H RBC Hgb Hct MCHC RDW Plt Count Lymph % (Auto) 7.2 L Lymph # 1.0 L Seg Neutrophils % 90.0 H Seg Neuts % (Manual) Lymphocytes % (Manual) Seg Neutrophils # 12.0 H Seg Neutrophils # Man PT INR Sodium 155 H Potassium Chloride 122.8 H Carbon Dioxide 21 L BUN 19 H Creatinine Glucose POC Glucose 120 H Lactic Acid Calcium AST Total Protein Albumin Urine WBC (Auto) 01/10/20 01/10/20 01/10/20 11:47 11:57 17:09 WBC RBC Hgb Hct MCHC RDW Plt Count Lymph % (Auto) Lymph # Seg Neutrophils % Seg Neuts % (Manual) Lymphocytes % (Manual) Seg Neutrophils # Seg Neutrophils # Man PT INR Sodium 153 H Potassium Chloride 118.3 H Carbon Dioxide 20 L BUN 19 H Creatinine Glucose 113 H POC Glucose 142 H 125 H Lactic Acid Calcium AST Total Protein Albumin Urine WBC (Auto) 01/10/20 01/10/20 01/11/20 20:27 22:00 00:45 WBC RBC Hgb Hct MCHC RDW Plt Count Lymph % (Auto) Lymph # Seg Neutrophils % Seg Neuts % (Manual) Lymphocytes % (Manual) Seg Neutrophils # Seg Neutrophils # Man PT INR Sodium 153 H 154 H Potassium 3.3 L 3.2 L Chloride 117.0 H 118.9 H Carbon Dioxide 20 L BUN Creatinine Glucose POC Glucose 136 H Lactic Acid Calcium 8.3 L 8.0 L AST Total Protein Albumin Urine WBC (Auto) 01/11/20 01/11/20 01/11/20 07:06 08:03 11:54 WBC RBC Hgb Hct MCHC RDW Plt Count Lymph % (Auto) Lymph # Seg Neutrophils % Seg Neuts % (Manual) Lymphocytes % (Manual) Seg Neutrophils # Seg Neutrophils # Man PT INR Sodium 151 H Potassium Chloride 118.7 H Carbon Dioxide 21 L BUN Creatinine Glucose 107 H POC Glucose 118 H 164 H Lactic Acid Calcium 8.3 L AST Total Protein Albumin Urine WBC (Auto) 01/11/20 01/12/20 01/12/20 16:28 00:19 05:40 WBC RBC Hgb Hct MCHC RDW Plt Count Lymph % (Auto) Lymph # Seg Neutrophils % Seg Neuts % (Manual) Lymphocytes % (Manual) Seg Neutrophils # Seg Neutrophils # Man PT INR Sodium 148 H Potassium Chloride 111.6 H Carbon Dioxide 19 L BUN Creatinine Glucose 128 H POC Glucose 132 H 179 H Lactic Acid Calcium 8.2 L AST Total Protein Albumin Urine WBC (Auto) 01/12/20 01/12/20 01/12/20 06:17 11:37 17:21 WBC RBC Hgb Hct MCHC RDW Plt Count Lymph % (Auto) Lymph # Seg Neutrophils % Seg Neuts % (Manual) Lymphocytes % (Manual) Seg Neutrophils # Seg Neutrophils # Man PT INR Sodium Potassium Chloride Carbon Dioxide BUN Creatinine Glucose POC Glucose 140 H 142 H 133 H Lactic Acid Calcium AST Total Protein Albumin Urine WBC (Auto) 01/12/20 01/13/20 01/13/20 23:14 05:26 07:00 WBC RBC Hgb Hct MCHC RDW Plt Count Lymph % (Auto) Lymph # Seg Neutrophils % Seg Neuts % (Manual) Lymphocytes % (Manual) Seg Neutrophils # Seg Neutrophils # Man PT INR Sodium Potassium Chloride 110.0 H Carbon Dioxide BUN Creatinine Glucose 139 H POC Glucose 135 H 162 H Lactic Acid Calcium 7.8 L AST Total Protein Albumin Urine WBC (Auto) 01/13/20 01/13/20 01/13/20 12:14 17:52 21:40 WBC RBC Hgb Hct MCHC RDW Plt Count Lymph % (Auto) Lymph # Seg Neutrophils % Seg Neuts % (Manual) Lymphocytes % (Manual) Seg Neutrophils # Seg Neutrophils # Man PT INR Sodium Potassium Chloride Carbon Dioxide BUN Creatinine Glucose POC Glucose 205 H 172 H 186 H Lactic Acid Calcium AST Total Protein Albumin Urine WBC (Auto) 01/14/20 01/14/20 01/14/20 04:28 11:01 11:01 WBC 14.8 H RBC 3.20 L Hgb 9.5 L Hct 28.0 L MCHC RDW Plt Count Lymph % (Auto) Lymph # Seg Neutrophils % Seg Neuts % (Manual) Lymphocytes % (Manual) Seg Neutrophils # Seg Neutrophils # Man PT INR Sodium Potassium 3.2 L Chloride Carbon Dioxide BUN Creatinine 0.4 L Glucose POC Glucose 115 H Lactic Acid Calcium 8.0 L AST Total Protein Albumin Urine WBC (Auto) 01/14/20 01/14/20 01/14/20 11:01 16:33 22:32 WBC RBC Hgb Hct MCHC RDW Plt Count Lymph % (Auto) Lymph # Seg Neutrophils % Seg Neuts % (Manual) Lymphocytes % (Manual) Seg Neutrophils # Seg Neutrophils # Man PT 15.8 H INR 1.23 H Sodium Potassium Chloride Carbon Dioxide BUN Creatinine Glucose POC Glucose 58 L 188 H Lactic Acid Calcium AST Total Protein Albumin Urine WBC (Auto) 01/15/20 01/15/20 01/15/20 05:35 06:19 17:17 WBC RBC Hgb Hct MCHC RDW Plt Count Lymph % (Auto) Lymph # Seg Neutrophils % Seg Neuts % (Manual) Lymphocytes % (Manual) Seg Neutrophils # Seg Neutrophils # Man PT INR Sodium Potassium Chloride Carbon Dioxide BUN Creatinine 0.5 L Glucose 104 H POC Glucose 106 H 183 H Lactic Acid Calcium 7.8 L AST Total Protein Albumin Urine WBC (Auto) 01/15/20 01/16/20 01/16/20 22:29 05:35 05:59 WBC 14.7 H RBC 3.04 L Hgb 9.0 L Hct 27.0 L MCHC RDW Plt Count Lymph % (Auto) 9.1 L Lymph # Seg Neutrophils % 87.3 H Seg Neuts % (Manual) Lymphocytes % (Manual) Seg Neutrophils # 12.9 H Seg Neutrophils # Man PT INR Sodium Potassium Chloride Carbon Dioxide BUN Creatinine Glucose POC Glucose 228 H 130 H Lactic Acid Calcium AST Total Protein Albumin Urine WBC (Auto) 01/16/20 01/16/20 01/16/20 09:52 12:49 17:30 WBC RBC Hgb Hct MCHC RDW Plt Count Lymph % (Auto) Lymph # Seg Neutrophils % Seg Neuts % (Manual) Lymphocytes % (Manual) Seg Neutrophils # Seg Neutrophils # Man PT INR Sodium Potassium Chloride Carbon Dioxide BUN Creatinine Glucose POC Glucose 122 H 142 H 192 H Lactic Acid Calcium AST Total Protein Albumin Urine WBC (Auto) 01/16/20 01/17/20 01/17/20 23:01 08:36 08:36 WBC 12.7 H RBC 2.98 L Hgb 8.9 L Hct 26.4 L MCHC RDW Plt Count Lymph % (Auto) 8.8 L Lymph # 1.1 L Seg Neutrophils % 86.7 H Seg Neuts % (Manual) Lymphocytes % (Manual) Seg Neutrophils # 11.0 H Seg Neutrophils # Man PT INR Sodium Potassium 3.3 L D Chloride Carbon Dioxide BUN Creatinine 0.4 L Glucose POC Glucose 141 H Lactic Acid Calcium 8.1 L AST Total Protein 4.6 L Albumin 1.6 L Urine WBC (Auto) 01/17/20 01/17/20 01/18/20 11:43 23:56 06:27 WBC RBC Hgb Hct MCHC RDW Plt Count Lymph % (Auto) Lymph # Seg Neutrophils % Seg Neuts % (Manual) Lymphocytes % (Manual) Seg Neutrophils # Seg Neutrophils # Man PT INR Sodium Potassium Chloride Carbon Dioxide BUN Creatinine Glucose POC Glucose 137 H 215 H 122 H Lactic Acid Calcium AST Total Protein Albumin Urine WBC (Auto) 01/18/20 01/18/20 01/18/20 07:31 07:31 11:39 WBC 12.1 H RBC 3.23 L Hgb 9.7 L Hct 28.7 L MCHC RDW Plt Count Lymph % (Auto) 9.2 L Lymph # 1.1 L Seg Neutrophils % 85.0 H Seg Neuts % (Manual) Lymphocytes % (Manual) Seg Neutrophils # 10.3 H Seg Neutrophils # Man PT INR Sodium Potassium Chloride Carbon Dioxide BUN Creatinine 0.4 L Glucose 108 H POC Glucose 172 H Lactic Acid Calcium AST Total Protein 5.3 L Albumin 2.1 L Urine WBC (Auto) 01/18/20 01/19/20 01/19/20 18:22 00:15 11:30 WBC RBC Hgb Hct MCHC RDW Plt Count Lymph % (Auto) Lymph # Seg Neutrophils % Seg Neuts % (Manual) Lymphocytes % (Manual) Seg Neutrophils # Seg Neutrophils # Man PT INR Sodium Potassium Chloride Carbon Dioxide BUN Creatinine Glucose POC Glucose 119 H 135 H 163 H Lactic Acid Calcium AST Total Protein Albumin Urine WBC (Auto) 01/19/20 01/19/20 01/20/20 17:44 22:59 03:44 WBC 11.1 H RBC 2.77 L Hgb 8.4 L Hct 25.0 L MCHC RDW Plt Count Lymph % (Auto) Lymph # Seg Neutrophils % 74.6 H Seg Neuts % (Manual) Lymphocytes % (Manual) Seg Neutrophils # 8.3 H Seg Neutrophils # Man PT INR Sodium Potassium Chloride Carbon Dioxide BUN Creatinine Glucose POC Glucose 161 H 182 H Lactic Acid Calcium AST Total Protein Albumin Urine WBC (Auto) 01/20/20 01/21/20 01/21/20 03:44 00:07 05:51 WBC RBC 2.84 L Hgb 8.6 L Hct 25.5 L MCHC RDW Plt Count 463 H Lymph % (Auto) Lymph # Seg Neutrophils % 76.9 H Seg Neuts % (Manual) Lymphocytes % (Manual) Seg Neutrophils # 7.8 H Seg Neutrophils # Man PT INR Sodium Potassium Chloride Carbon Dioxide BUN Creatinine 0.4 L Glucose POC Glucose 68 L Lactic Acid Calcium 7.9 L AST Total Protein 4.7 L Albumin 1.9 L Urine WBC (Auto) 01/21/20 01/21/20 01/21/20 05:51 05:58 11:25 WBC RBC Hgb Hct MCHC RDW Plt Count Lymph % (Auto) Lymph # Seg Neutrophils % Seg Neuts % (Manual) Lymphocytes % (Manual) Seg Neutrophils # Seg Neutrophils # Man PT INR Sodium Potassium Chloride Carbon Dioxide 20 L BUN Creatinine 0.5 L Glucose 130 H POC Glucose 185 H 163 H Lactic Acid Calcium 7.6 L AST Total Protein 5.0 L Albumin 1.9 L Urine WBC (Auto) 01/21/20 01/21/20 01/22/20 16:22 21:17 01:28 WBC RBC 2.60 L Hgb 8.0 L Hct 23.3 L MCHC RDW Plt Count Lymph % (Auto) Lymph # Seg Neutrophils % 74.8 H Seg Neuts % (Manual) Lymphocytes % (Manual) Seg Neutrophils # Seg Neutrophils # Man PT INR Sodium Potassium Chloride Carbon Dioxide BUN Creatinine Glucose POC Glucose 177 H 67 L Lactic Acid Calcium AST Total Protein Albumin Urine WBC (Auto) 01/22/20 01/22/20 01/22/20 01:28 01:28 12:06 WBC RBC Hgb Hct MCHC RDW Plt Count Lymph % (Auto) Lymph # Seg Neutrophils % Seg Neuts % (Manual) Lymphocytes % (Manual) Seg Neutrophils # Seg Neutrophils # Man PT INR Sodium Potassium Chloride 107.6 H Carbon Dioxide BUN Creatinine 0.4 L Glucose 152 H POC Glucose 203 H 140 H Lactic Acid Calcium 7.5 L AST Total Protein 4.0 L Albumin 2.0 L Urine WBC (Auto) 01/22/20 01/22/20 01/23/20 16:24 22:55 06:10 WBC RBC 2.68 L Hgb 8.6 L Hct 24.1 L MCHC 36 H RDW Plt Count Lymph % (Auto) Lymph # Seg Neutrophils % Seg Neuts % (Manual) 71.0 H Lymphocytes % (Manual) Seg Neutrophils # Seg Neutrophils # Man PT INR Sodium Potassium Chloride Carbon Dioxide BUN Creatinine Glucose POC Glucose 205 H 196 H Lactic Acid Calcium AST Total Protein Albumin Urine WBC (Auto) 01/23/20 01/23/20 01/23/20 06:10 07:35 11:59 WBC RBC Hgb Hct MCHC RDW Plt Count Lymph % (Auto) Lymph # Seg Neutrophils % Seg Neuts % (Manual) Lymphocytes % (Manual) Seg Neutrophils # Seg Neutrophils # Man PT INR Sodium Potassium Chloride 108.8 H Carbon Dioxide BUN Creatinine 0.4 L Glucose 105 H POC Glucose 111 H 123 H Lactic Acid Calcium 8.0 L AST Total Protein 4.9 L D Albumin 2.0 L Urine WBC (Auto) 01/23/20 01/24/20 01/24/20 22:45 11:24 16:41 WBC RBC Hgb Hct MCHC RDW Plt Count Lymph % (Auto) Lymph # Seg Neutrophils % Seg Neuts % (Manual) Lymphocytes % (Manual) Seg Neutrophils # Seg Neutrophils # Man PT INR Sodium Potassium Chloride Carbon Dioxide BUN Creatinine Glucose POC Glucose 180 H 182 H 177 H Lactic Acid Calcium AST Total Protein Albumin Urine WBC (Auto) 01/24/20 01/25/20 01/25/20 23:11 07:12 11:35 WBC RBC Hgb Hct MCHC RDW Plt Count Lymph % (Auto) Lymph # Seg Neutrophils % Seg Neuts % (Manual) Lymphocytes % (Manual) Seg Neutrophils # Seg Neutrophils # Man PT INR Sodium Potassium Chloride Carbon Dioxide BUN Creatinine Glucose POC Glucose 142 H 135 H 142 H Lactic Acid Calcium AST Total Protein Albumin Urine WBC (Auto) 01/25/20 01/26/20 01/26/20 16:33 00:04 11:35 WBC RBC Hgb Hct MCHC RDW Plt Count Lymph % (Auto) Lymph # Seg Neutrophils % Seg Neuts % (Manual) Lymphocytes % (Manual) Seg Neutrophils # Seg Neutrophils # Man PT INR Sodium Potassium Chloride Carbon Dioxide BUN Creatinine Glucose POC Glucose 247 H 233 H 200 H Lactic Acid Calcium AST Total Protein Albumin Urine WBC (Auto) 01/26/20 01/26/20 16:30 16:30 WBC RBC Hgb 7.4 L Hct 22.0 L MCHC RDW Plt Count Lymph % (Auto) Lymph # Seg Neutrophils % Seg Neuts % (Manual) Lymphocytes % (Manual) Seg Neutrophils # Seg Neutrophils # Man PT 18.4 H INR 1.50 H Sodium Potassium Chloride Carbon Dioxide BUN Creatinine Glucose POC Glucose Lactic Acid Calcium AST Total Protein Albumin Urine WBC (Auto)
--- NOTE | 2020-01-26 18:47 | XRay Report ---
Chest single view INDICATION: Dyspnea IMPRESSION: Worsening opacification of the left hemithorax when compared to 01/23/2020. Pleural-parenc hymal densities within the right lower lung have also slightly worsened in the interim. The left arm PICC line terminates near the mid SVC level. Signer Name: Jamari Ansari MD Signed: 01/26/2020 6:43 PM Workstation Name: [id number]
[2020-01-26] MEDS ORDERED: SODIUM CHLORIDE 0.9% 500 ML 500 ML IV ONE (19:00)
--- NOTE | 2020-01-26 19:25 | Event Note ---
Date: 01/26/20 Patient BP continue to drop given 500ml NS bolus but given large left pleural effusion patient needs to be on diuretics briefly will transfer to icu, will place on levophed and will cont lasix 20mg iv for now Discussed with Dr Crain and he agrees Called patient's and updated. Family wishes to continue with full code
[2020-01-26] MEDS ORDERED: SODIUM CHLORIDE 0.9% 250ML 250 ML ONE (20:11)
[2020-01-26] MEDS ORDERED: SODIUM CHLORIDE 0.9% 1000 ML 1,000 ML IV ONE (20:12)
[2020-01-26] MEDS ORDERED: SODIUM CHLORIDE 0.9% 1000 ML 1,000 ML ONE (20:14)
--- NOTE | 2020-01-26 21:51 | Cat Scan Report ---
CT angio chest INDICATION: Acute hypoxemic resp failure; Hypotension. TECHNIQUE: All CT scans at this location are performed using CT dose reduction for ALARA by means of automated e xposure control. COMPARISON: 01/17/2020 FINDINGS: In the 9 day interval, there have developed very large bilateral pleural effusions, resulting in comp lete atelectasis of the entire left lung and atelectasis of much of the right lower lobe. No apprecia ble mediastinal or hilar adenopathy. No evidence of pulmonary embolus. IMPRESSION: 1. Interval development since 01/17/2020 of very large bilateral pleural effusions, especially on the left, with complete atelectasis of the entire left lung. 2. Negative for pulmonary embolus. Signer Name: Enrrique Dumont MD Signed: 01/26/2020 9:47 PM Workstation Name: [id number]
--- NOTE | 2020-01-26 22:14 | Consultation ---
PULMONARY CRITICAL CARE CONSULTATION CONSULTING PHYSICIAN: Dr. Plata. REASON FOR CONSULTATION: Acute hypoxemic respiratory failure, hypotension, left lung whiteout. CHIEF COMPLAINT AND HISTORY OF PRESENT ILLNESS: The patient is a now 69-year-old -[place] female with past medical history significant amongst other things for a diagnosis of pulmonary embolism, who apparently was on Eliquis at home, came into the hospital about 18 days ago. She was brought in from home. She was less active. She was hypotensive. The patient at baseline appears to be chronically encephalopathic. In the Emergency Room, she was found with a low-grade fever. She had a leukocytosis. She had an acute kidney injury. She was admitted to the hospital for further workup after they had also found a urinary tract infection. The patient was ultimately scheduled for a percutaneous endoscopic gastrostomy tube placement, which was done on 01/14/2020. As far as I can tell, it was an uneventful placement. On 01/16/2020, she developed a hydropneumothorax on the left side. A chest tube was placed and the patient seems to have had reexpansion of that lung. Ultimately, the chest tube was removed unclear when, but a chest x-ray on the , there is absent the chest tube in the left upper chest. It seems like she was being prepared for discharge home; however, the patient decompensated and became hypotensive. A chest x-ray suggested a large left pleural effusion and a consult was called for management of the left lung process as well as for management of the hypotension and transferred to the Intensive Care Unit. Prior to this being happened, I am told a rapid response code MET was called and she responded initially to 500 mL normal saline bolus. When I stopped by to see her, she was resting in bed. She was on supplemental oxygen, mildly increased work of breathing, nonresponsive, no accessory muscle use. I do not have any history of vomiting or overt aspiration. No report of any high-grade fevers or chills today. Blood pressure had dropped as low as 85/44. The above is as much of the history of presentation as I have. PAST MEDICAL HISTORY: Again, significant for diabetes, hyperlipidemia, pulmonary embolism, dementia, asthma. She is bedbound essentially. PAST SURGICAL HISTORY: Now status post percutaneous endoscopic gastrostomy tube placement and status post left chest tube placement and removal. MEDICATIONS: She was on at the time I stopped by to see her, according to the medication administration record included the following: Tylenol 650 mg p.o. q. 4 hours p.r.n. mild pain or fevers. All p.o. meds via the PEG tube. Lipitor 10 mg p.o. at bedtime, Aricept 10 mg p.o. at bedtime, Flonase 100 mcg each nostril p.r.n. once a day, Lasix 20 mg IV b.i.d., heparin drip had been started empirically tonight 900 units per hour for PE protocol, insulin via sliding scale, Megace 400 mg p.o. daily, Remeron 50 mg p.o. at bedtime, Levophed drip 2 mcg per minute, Zosyn 4.5 grams IV q. 8 hours, Zofran 4 mg IV q. 8 hours p.r.n. nausea and vomiting, trazodone 25 mg p.o. at bedtime. ALLERGIES: No known drug allergies. DIET: Well-built lady. Acute weight loss or gain history is unknown. FAMILY AND SOCIAL HISTORY: Lives in the community with family. No current alcohol, tobacco, or illicit drug use or abuse. Remote history is unknown. Family history is otherwise unknown. REVIEW OF SYSTEMS: Unobtainable secondary to patient's medical and mental condition. Since she has been here, no gross hematochezia or melena has been reported. No gross hematuria, no hematemesis, no hemoptysis, no witnessed seizures. Review of systems otherwise unobtainable or as in the body of the history above. PHYSICAL EXAMINATION: VITAL SIGNS: On examination, review of the vital signs shows that at initial presentation, low-grade fever of 99.6 degrees Fahrenheit with a pulse of 125, respiratory rate of 11, blood pressure 123/74, O2 sats were 99% at that time, inspired oxygen concentration was not recorded. When I stopped by to see her today, she was afebrile; however, her blood pressure had dropped as low as 85/44. GENERAL: Again, elderly, chronically ill looking female, normocephalic, resting in bed with mildly increased respiratory effort at rest. HEAD, EYES, EARS, NOSE AND THROAT: Anicteric. No conjunctival erythema. Difficult to examine her oropharynx. No gross jugular venous distention, no thyromegaly. NECK: Grossly, there were no palpable lymph nodes in the supraclavicular or submandibular lymph node chains. LUNGS: Auscultation of both lung delgado show diminished left lung breath sounds, some dullness to percussion in the left lower lobe region. No wheezing. Right lungs air movement was good. HEART: Heart sounds 1 and 2 are heard, regular rate and rhythm at time of my evaluation without overt rubs or murmurs. ABDOMEN: Soft, full, bowel sounds are positive, nontender, no palpable hepatosplenomegaly. PEG tube is in place. EXTREMITIES: Without overt digital clubbing or cyanosis. Trace pedal edema. Pedal pulses are 2+ bilaterally. NEUROLOGIC: Pupils are equal, round, about 3 mm, reactive to light. Extraocular muscle movements could not be assessed. She had spontaneous movements to her right upper extremity, but that was about it. She did not respond to my prompts. SKIN: Normal turgor in the areas examined. She does have a sacral decubitus ulcer that is status post debridement. Please see the wound care nurse's notes for full description of her screen. PSYCHIATRIC: Mood and affect were flat. LABORATORY DATA: From my review are as follows: Admission white cell count was 13,500, hemoglobin 12.6, hematocrit 39.7, platelet count 208. No band forms on the manual differential. Serum sodium was 161 at presentation, potassium 3.8, chloride 126, bicarbonate 20, BUN 30, creatinine 1.1, glucose was 115, lactic acid was 2.1. Urinalysis, small leukocyte esterase, 11 white cells per high power field. Most recent lab work: Hemoglobin 7.4 today. INR 1.5. As of the , serum sodium was down to 143, BUN was 13, creatinine was 0.4. Albumin was 2.0. Urine cultures grew Proteus. Surgical cultures grew Proteus mirabilis and E. faecalis. Blood cultures were no growth to date. Most recent white cell count on the was within normal limits. DIAGNOSTIC DATA: Chest x-ray has been reviewed. The most recent chest x-ray shows really difficult to tell there is elevation of the left hemidiaphragm with a transverse and descending colon in the left upper quadrant delgado where her stomach should be. It is hard to define the left heart border. There is whiteout involving the left upper lobe. The same is severely rotated to the left it appears and certainly, there is some confluence of shadows. She has a [id number] right pleural effusion. This could be a combination of atelectasis and pleural effusion, difficult to tell, but it certainly a new process since a chest x-ray from the , which showed left upper lobe was opened and well expanded. ASSESSMENT: 1. Severe sepsis with shock. 2. Left lung atelectasis. 3. Left pleural effusion. 4. Acute hypoxemic respiratory failure. 5. Acute possibly on chronic encephalopathy. 6. History of diabetes. 7. Urinary tract infection. 8. History of pulmonary embolism, diagnosed several months ago. 9. Sacral decubitus ulcer. 10. Dementia. 11. Anemia that is normocytic. PLAN: I will be sending her for a CT scan of her chest to better identify the intrathoracic process that is ongoing and to help best define a better approach to management. In the meantime, she has been transferred to the Intensive Care Unit. Bilevel positive airway pressure ventilation therapy will be offered overnight for alveolar recruitment and hopefully open up any area of the lung that is atelectatic due to possible mucus plug. Oxygen will be weaned to keep sats greater than or equal to about 90%. Aspiration precautions will be maintained. I have spoken to her and requested IV contrast consent just to evaluate for extension of pulmonary embolism or to quantify any clot burden that may be present, but also again to look at the pulmonary parenchyma better. We will continue full empiric anticoagulation for now. Vasopressors will be titrated to keep mean arterial pressures greater than or equal to about 65 mmHg. We will continue empiric antibiotic therapy. I will get a lactic acid level. I will also get a CRP level. I am going to discontinue Lasix at this point. I doubt pulmonary edema is the major player here. Enteral nutrition will remain the feeding modality of choice. Again, aspiration precautions will be maintained. She will be placed on GI prophylaxis, especially with her being on full anticoagulation at this time. Flu and pneumonia vaccination will be addressed per protocol. Further interventions will depend on the patient's progress going forwards. Thank you very much for the consult. We will follow along and make further recommendations as picture progresses/becomes clearer. At this time, I spent about 35-40 minutes of critical care time without overlap excluding any procedural time that may be necessary. JOB# [id number] ALPESH/[id number] WING
[2020-01-27] MEDS: NORepinephrine/NS 4 MG-250 ML 4 MG/250 ML BAG IV SCH ×2 (01:15→12:35)
[2020-01-27] MEDS: DONEPEZIL 10 MG TAB PO SCH ×2 (04:38→21:20)
[2020-01-27] MEDS: traZODone 50 MG TAB PO SCH ×2 (04:38→21:19)
[2020-01-27] MEDS: MIRTAZAPINE 15 MG TAB PO SCH ×2 (04:42→21:20)
[2020-01-27] MEDS: INSULIN REGULAR, HUMAN 100 UNIT/ML 3ML VIAL SUB-Q SCH ×3 (04:42→17:20)
[2020-01-27] MEDS: FUROSEMIDE 20 MG/2 ML INJ IV SCH (05:40)
[2020-01-27] MEDS: PIPERACIL/TAZOBACTA 4.5/NS 100 4.5 GM/100 ML VIAL IV SCH ×6 (05:41→21:21)
[2020-01-27 06:57] LABS: Basophils % (Auto) 0.1 % (0.0-1.8); Eosinophils % (Auto) 0.1 % (0.0-4.3); Hematocrit 24.9 % (30.3-42.9); Hemoglobin 8.4 gm/dl (10.1-14.3); Lymphocytes # (Auto) 1.3 K/mm3 (1.2-5.4); Lymphocytes % (Auto) 12.7 % (13.4-35.0); Mean Corpuscular HGB Conc 34 % (30-34); Mean Corpuscular Volume 91 fl (79-97); Monocytes # (Auto) 0.4 K/mm3 (0.0-0.8); Monocytes % (Auto) 3.9 % (0.0-7.3); Platelet Count 474 K/mm3 (140-440); Red Blood Count 2.75 M/mm3 (3.65-5.03)
[2020-01-27 07:21] LABS: Blood Urea Nitrogen 17 mg/dL (7-17); Calcium 7.8 mg/dL (8.4-10.2); Hemolysis Index 1
[2020-01-27 07:39] LABS: BUN/Creatinine Ratio 43
[2020-01-27] MEDS: FAMOTIDINE 20 MG TAB PO SCH ×2 (09:48→21:21)
[2020-01-27] MEDS ORDERED: POTASSIUM CHLORIDE 20 MEQ PACKET FEEDTUBE ONE (10:00)
--- NOTE | 2020-01-27 10:58 | Progress Note ---
Assessment and Plan Severe sepsis with shock. Left lung atelectasis. Left pleural effusion. Acute hypoxemic respiratory failure. Acute possibly on chronic encephalopathy. History of diabetes. Urinary tract infection. History of pulmonary embolism, diagnosed several months ago. Sacral decubitus ulcer. Dementia. Anemia that is normocytic. - continue to wean supplemental oxygen for target O2 sats > 92% acutely - awaiting thoracentesis, medical management of atelectasis - Remains on continuous NIPPV, will monitor another 24 hours, get ABG and CXR in am- may need endotracheal intubation -Get lower extremity dopplers, if negative- plan to stop therapeutic heparin and start prophylaxis dosing - continue bronchodilators with pulmonary hygiene per RT - wean per pulmonary driven protocols otherwise - continue accuchecks with glycemic control per SSI (While critically ill target blood glucose of 140-180 mg/dL; avoid hypoglycemia) - avoid nephrotoxins, renally dose all medications - continue to avoid benzodiazepines, reduce the possibility of delirium - complete antibitoics per per ID- currently on Zosyn - prn analgesia per CPOT score - Maintenance of sleep-wake cycle, avoid delirium - continue enteral nutritional support, stop bolus tube feedings ad start continuous entric nutritional support -Aspiration precautions - Stress ulcer prophylaxis with famotidine - PT/OT/ROM exercises - continue mobility protocol, frequent turning and off loading to prevent further pressure ulcers -Wound care - Monitor hemodynamics closely - continue other care per attending / other consultants CONDITION: CRITICAL PROGNOSIS: GUARDED CODE STATUS: FULL CODE The high probability of a clinically significant, sudden or life-threatening deterioration of the [respiratory, cardiovascular & neurologic] system(s) required my full and direct attention, intervention and personal management. The aggregate critical care time was [35] minutes without overlap. Time includes spent on; [x] Data Review and interpretation [x] Patient assessment and monitoring of vital signs [x] Documentation [x] Medication orders and management Subjective Date of service: 01/27/20 Principal diagnosis: Bacteremia Interval history: Patient is seen today for: Severe sepsis with shock;L. lung atelectasis / L. pleural effusion; Acute hypoxemic respiratory failure; Acute possibly on chronic encephalopathy; DM II; UTI; VTE Seen and examined at bedside; 24hour events reviewed; nursing and respiratory care staff consulted; no adverse overnight events reported to me; resting peacefully in bed; remains o nNIPPV at 30%- on going desaturations when ever BIPAP is taken off, , hypothermic on a warming blanket, minimally responsive. On Norepinephrine at 6mcg, On heparin infusion for possible PE Objective Vital Signs - 12hr 01/26/20 01/26/20 01/26/20 23:00 23:10 23:20 Temperature Pulse Rate 83 83 75 Pulse Rate [ From Monitor] Respiratory 21 30 H 20 Rate Blood Pressure 117/68 108/49 105/45 O2 Sat by Pulse 100 100 100 Oximetry 01/26/20 01/26/20 01/26/20 23:30 23:40 23:50 Temperature Pulse Rate 89 97 H 117 H Pulse Rate [ From Monitor] Respiratory 22 22 23 Rate Blood Pressure 105/45 114/52 109/47 O2 Sat by Pulse 100 100 100 Oximetry 01/27/20 01/27/20 01/27/20 00:00 00:10 00:20 Temperature Pulse Rate 90 88 80 Pulse Rate [ 89 From Monitor] Respiratory 22 20 23 Rate Blood Pressure 109/47 102/73 101/65 O2 Sat by Pulse 100 100 100 Oximetry 01/27/20 01/27/20 01/27/20 00:30 00:40 00:50 Temperature Pulse Rate 78 59 L 58 L Pulse Rate [ From Monitor] Respiratory 22 20 17 Rate Blood Pressure 101/65 108/56 84/52 O2 Sat by Pulse 100 100 100 Oximetry 01/27/20 01/27/20 01/27/20 01:00 01:10 01:20 Temperature Pulse Rate 57 L 55 L 55 L Pulse Rate [ From Monitor] Respiratory 20 17 16 Rate Blood Pressure 84/52 84/52 79/39 O2 Sat by Pulse 100 100 100 Oximetry 01/27/20 01/27/20 01/27/20 01:30 01:40 01:50 Temperature Pulse Rate 56 L 56 L 54 L Pulse Rate [ From Monitor] Respiratory 17 17 15 Rate Blood Pressure 73/40 78/40 83/50 O2 Sat by Pulse 100 100 100 Oximetry 01/27/20 01/27/20 01/27/20 02:00 02:10 02:20 Temperature Pulse Rate 54 L 67 56 L Pulse Rate [ From Monitor] Respiratory 13 19 13 Rate Blood Pressure 83/50 91/45 98/53 O2 Sat by Pulse 100 100 100 Oximetry 01/27/20 01/27/20 01/27/20 02:30 02:40 02:50 Temperature Pulse Rate 56 L 54 L 58 L Pulse Rate [ From Monitor] Respiratory 16 15 15 Rate Blood Pressure 98/53 101/52 95/50 O2 Sat by Pulse 100 100 100 Oximetry 01/27/20 01/27/20 01/27/20 03:00 03:10 03:20 Temperature Pulse Rate 56 L 58 L 58 L Pulse Rate [ From Monitor] Respiratory 16 16 14 Rate Blood Pressure 95/50 93/50 91/48 O2 Sat by Pulse 100 100 100 Oximetry 01/27/20 01/27/20 01/27/20 03:30 03:40 03:50 Temperature Pulse Rate 59 L 61 60 Pulse Rate [ From Monitor] Respiratory 16 16 18 Rate Blood Pressure 91/48 88/48 94/49 O2 Sat by Pulse 100 100 100 Oximetry 01/27/20 01/27/20 01/27/20 04:00 04:06 04:10 Temperature 97.6 F Pulse Rate 97 H 82 Pulse Rate [ 82 From Monitor] Respiratory 22 23 22 Rate Blood Pressure 94/49 94/49 O2 Sat by Pulse 100 100 100 Oximetry 01/27/20 01/27/20 01/27/20 04:20 04:24 04:30 Temperature Pulse Rate 79 84 90 Pulse Rate [ From Monitor] Respiratory 25 H 27 H 22 Rate Blood Pressure 135/60 136/60 135/60 O2 Sat by Pulse 100 99 98 Oximetry 01/27/20 01/27/20 01/27/20 04:40 04:50 05:00 Temperature Pulse Rate 85 84 86 Pulse Rate [ From Monitor] Respiratory 26 H 27 H 26 H Rate Blood Pressure 125/59 105/50 105/50 O2 Sat by Pulse 98 98 97 Oximetry 01/27/20 01/27/20 01/27/20 05:10 05:20 05:33 Temperature Pulse Rate 90 94 H 96 H Pulse Rate [ From Monitor] Respiratory 25 H 25 H 25 H Rate Blood Pressure 99/56 96/50 O2 Sat by Pulse 98 98 98 Oximetry 01/27/20 01/27/20 01/27/20 05:41 05:51 05:59 Temperature Pulse Rate 99 H 99 H Pulse Rate [ 82 From Monitor] Respiratory 24 28 H 23 Rate Blood Pressure 102/54 103/55 O2 Sat by Pulse 98 98 100 Oximetry 01/27/20 01/27/20 01/27/20 06:00 06:11 06:21 Temperature Pulse Rate 101 H 100 H 102 H Pulse Rate [ From Monitor] Respiratory 25 H 25 H 27 H Rate Blood Pressure 105/57 105/57 103/55 O2 Sat by Pulse 97 98 98 Oximetry 01/27/20 01/27/20 01/27/20 06:30 06:41 06:51 Temperature Pulse Rate 104 H 105 H 105 H Pulse Rate [ From Monitor] Respiratory 27 H 27 H 27 H Rate Blood Pressure 101/56 101/56 99/56 O2 Sat by Pulse 97 98 98 Oximetry 01/27/20 01/27/20 01/27/20 07:00 07:11 07:21 Temperature Pulse Rate 104 H 113 H 109 H Pulse Rate [ From Monitor] Respiratory 28 H 25 H 26 H Rate Blood Pressure 96/53 96/53 103/60 O2 Sat by Pulse 97 97 97 Oximetry 01/27/20 01/27/20 01/27/20 07:30 07:41 07:51 Temperature Pulse Rate 106 H 102 H 102 H Pulse Rate [ From Monitor] Respiratory 26 H 27 H 26 H Rate Blood Pressure 94/48 94/48 87/47 O2 Sat by Pulse 97 97 97 Oximetry 01/27/20 01/27/20 01/27/20 07:54 08:00 08:11 Temperature Pulse Rate 105 H 103 H 105 H Pulse Rate [ From Monitor] Respiratory 25 H 27 H 27 H Rate Blood Pressure 87/47 94/49 94/49 O2 Sat by Pulse 98 97 Oximetry 01/27/20 01/27/20 01/27/20 08:21 08:30 08:41 Temperature Pulse Rate 108 H 110 H 111 H Pulse Rate [ From Monitor] Respiratory 25 H 25 H 26 H Rate Blood Pressure 87/47 92/49 92/49 O2 Sat by Pulse 96 96 Oximetry 01/27/20 01/27/20 01/27/20 08:47 08:51 09:00 Temperature 97.4 F L Pulse Rate 110 H 113 H Pulse Rate [ From Monitor] Respiratory 26 H 27 H Rate Blood Pressure 101/59 92/49 O2 Sat by Pulse 96 96 Oximetry 01/27/20 01/27/20 01/27/20 09:11 09:21 09:30 Temperature Pulse Rate 111 H 112 H 113 H Pulse Rate [ From Monitor] Respiratory 27 H 27 H 27 H Rate Blood Pressure 92/49 95/45 91/48 O2 Sat by Pulse 96 97 96 Oximetry 01/27/20 01/27/20 01/27/20 09:41 09:51 09:54 Temperature 98.1 F Pulse Rate 112 H 114 H Pulse Rate [ From Monitor] Respiratory 28 H 28 H Rate Blood Pressure 91/48 93/44 O2 Sat by Pulse 96 98 Oximetry 01/27/20 01/27/20 01/27/20 10:00 10:11 10:21 Temperature Pulse Rate 115 H 114 H 114 H Pulse Rate [ From Monitor] Respiratory 30 H 29 H 28 H Rate Blood Pressure 97/50 97/50 97/50 O2 Sat by Pulse 97 97 Oximetry 01/27/20 01/27/20 10:30 10:41 Temperature Pulse Rate 118 H 114 H Pulse Rate [ From Monitor] Respiratory 30 H 27 H Rate Blood Pressure 98/53 98/53 O2 Sat by Pulse 96 97 Oximetry Constitutional: lethargic, other (FFM on BIPAP, chronically ill looking) Neck: supple, no lymphadenopathy Effort: mildly labored Ascultation: Bilateral: diminished breath sounds (Left lung), rhonchi Cardiovascular: regular rate and rhythm, other (S1,S2) Gastrointestinal: normoactive bowel sounds, soft, non-tender, other (PEG in place) Integumentary: decubitus ulcer Extremities: edema, anasarca Neurologic: unable to assess Psychiatric: other (Unable to assess secondary to mental status) CBC and BMP: 02/02/20 05:25 02/02/20 05:25 ABG, PT/INR, D-dimer: ABG ABG pH 7.446 (7.320-7.450) 01/26/20 21:32 POC ABG pCO2 33.5 mmHg (32.0-48.0) 01/26/20 21:32 POC ABG pO2 51.8 mmHg (83-108) L 01/26/20 21:32 POC ABG HCO3 22.6 01/26/20 21:32 PT/INR, D-dimer PT 18.4 Sec. (12.2-14.9) H 01/26/20 16:30 INR 1.50 (0.87-1.13) H 01/26/20 16:30 Abnormal lab findings: Abnormal Labs 01/08/20 01/08/20 01/08/20 16:29 16:29 16:29 WBC 13.5 H RBC Hgb Hct MCHC RDW 15.5 H Plt Count Lymph % (Auto) Lymph # Seg Neutrophils % Seg Neuts % (Manual) 85.0 H Lymphocytes % (Manual) 11.0 L Seg Neutrophils # Seg Neutrophils # Man 11.5 H PT INR Heparin Anti-Xa Level POC ABG pO2 ABG Hemoglobin ABG Oxyhemoglobin Sodium 161 H* Potassium Chloride 125.5 H Carbon Dioxide 20 L BUN 30 H Creatinine Glucose 115 H POC Glucose Lactic Acid 2.20 H* Calcium 7.9 L AST 48 H Total Protein Albumin 2.5 L Urine WBC (Auto) 01/08/20 01/08/20 01/08/20 19:02 23:30 Unknown WBC RBC Hgb Hct MCHC RDW Plt Count Lymph % (Auto) Lymph # Seg Neutrophils % Seg Neuts % (Manual) Lymphocytes % (Manual) Seg Neutrophils # Seg Neutrophils # Man PT INR Heparin Anti-Xa Level POC ABG pO2 ABG Hemoglobin ABG Oxyhemoglobin Sodium Potassium Chloride Carbon Dioxide BUN Creatinine Glucose POC Glucose Lactic Acid 2.10 H* 2.50 H* Calcium AST Total Protein Albumin Urine WBC (Auto) 11.0 H 01/09/20 01/09/20 01/09/20 00:19 00:54 05:52 WBC 13.5 H RBC 3.02 L Hgb 9.0 L D Hct 27.4 L D MCHC RDW Plt Count Lymph % (Auto) 9.1 L Lymph # Seg Neutrophils % 87.6 H Seg Neuts % (Manual) Lymphocytes % (Manual) Seg Neutrophils # 11.8 H Seg Neutrophils # Man PT INR Heparin Anti-Xa Level POC ABG pO2 ABG Hemoglobin ABG Oxyhemoglobin Sodium Potassium Chloride Carbon Dioxide BUN Creatinine Glucose POC Glucose 118 H 116 H Lactic Acid Calcium AST Total Protein Albumin Urine WBC (Auto) 01/09/20 01/09/20 01/09/20 05:52 05:52 13:03 WBC RBC Hgb Hct MCHC RDW Plt Count Lymph % (Auto) Lymph # Seg Neutrophils % Seg Neuts % (Manual) Lymphocytes % (Manual) Seg Neutrophils # Seg Neutrophils # Man PT 17.1 H INR 1.36 H Heparin Anti-Xa Level POC ABG pO2 ABG Hemoglobin ABG Oxyhemoglobin Sodium 162 H* Potassium 3.0 L D Chloride 128.3 H Carbon Dioxide BUN 23 H Creatinine Glucose POC Glucose 55 L Lactic Acid Calcium 7.6 L AST Total Protein Albumin Urine WBC (Auto) 01/09/20 01/09/20 01/09/20 21:22 21:50 22:28 WBC RBC Hgb Hct MCHC RDW Plt Count Lymph % (Auto) Lymph # Seg Neutrophils % Seg Neuts % (Manual) Lymphocytes % (Manual) Seg Neutrophils # Seg Neutrophils # Man PT INR Heparin Anti-Xa Level POC ABG pO2 ABG Hemoglobin ABG Oxyhemoglobin Sodium 159 H Potassium 5.1 H D Chloride 128.5 H Carbon Dioxide 16 L BUN 23 H Creatinine Glucose 51 L POC Glucose 52 L 106 H Lactic Acid Calcium 8.2 L AST Total Protein Albumin Urine WBC (Auto) 01/10/20 01/10/20 01/10/20 05:23 09:11 10:10 WBC 13.4 H RBC Hgb Hct MCHC RDW Plt Count Lymph % (Auto) 7.2 L Lymph # 1.0 L Seg Neutrophils % 90.0 H Seg Neuts % (Manual) Lymphocytes % (Manual) Seg Neutrophils # 12.0 H Seg Neutrophils # Man PT INR Heparin Anti-Xa Level POC ABG pO2 ABG Hemoglobin ABG Oxyhemoglobin Sodium 155 H Potassium Chloride 122.8 H Carbon Dioxide 21 L BUN 19 H Creatinine Glucose POC Glucose 120 H Lactic Acid Calcium AST Total Protein Albumin Urine WBC (Auto) 01/10/20 01/10/20 01/10/20 11:47 11:57 17:09 WBC RBC Hgb Hct MCHC RDW Plt Count Lymph % (Auto) Lymph # Seg Neutrophils % Seg Neuts % (Manual) Lymphocytes % (Manual) Seg Neutrophils # Seg Neutrophils # Man PT INR Heparin Anti-Xa Level POC ABG pO2 ABG Hemoglobin ABG Oxyhemoglobin Sodium 153 H Potassium Chloride 118.3 H Carbon Dioxide 20 L BUN 19 H Creatinine Glucose 113 H POC Glucose 142 H 125 H Lactic Acid Calcium AST Total Protein Albumin Urine WBC (Auto) 01/10/20 01/10/20 01/11/20 20:27 22:00 00:45 WBC RBC Hgb Hct MCHC RDW Plt Count Lymph % (Auto) Lymph # Seg Neutrophils % Seg Neuts % (Manual) Lymphocytes % (Manual) Seg Neutrophils # Seg Neutrophils # Man PT INR Heparin Anti-Xa Level POC ABG pO2 ABG Hemoglobin ABG Oxyhemoglobin Sodium 153 H 154 H Potassium 3.3 L 3.2 L Chloride 117.0 H 118.9 H Carbon Dioxide 20 L BUN Creatinine Glucose POC Glucose 136 H Lactic Acid Calcium 8.3 L 8.0 L AST Total Protein Albumin Urine WBC (Auto) 01/11/20 01/11/20 01/11/20 07:06 08:03 11:54 WBC RBC Hgb Hct MCHC RDW Plt Count Lymph % (Auto) Lymph # Seg Neutrophils % Seg Neuts % (Manual) Lymphocytes % (Manual) Seg Neutrophils # Seg Neutrophils # Man PT INR Heparin Anti-Xa Level POC ABG pO2 ABG Hemoglobin ABG Oxyhemoglobin Sodium 151 H Potassium Chloride 118.7 H Carbon Dioxide 21 L BUN Creatinine Glucose 107 H POC Glucose 118 H 164 H Lactic Acid Calcium 8.3 L AST Total Protein Albumin Urine WBC (Auto) 01/11/20 01/12/20 01/12/20 16:28 00:19 05:40 WBC RBC Hgb Hct MCHC RDW Plt Count Lymph % (Auto) Lymph # Seg Neutrophils % Seg Neuts % (Manual) Lymphocytes % (Manual) Seg Neutrophils # Seg Neutrophils # Man PT INR Heparin Anti-Xa Level POC ABG pO2 ABG Hemoglobin ABG Oxyhemoglobin Sodium 148 H Potassium Chloride 111.6 H Carbon Dioxide 19 L BUN Creatinine Glucose 128 H POC Glucose 132 H 179 H Lactic Acid Calcium 8.2 L AST Total Protein Albumin Urine WBC (Auto) 01/12/20 01/12/20 01/12/20 06:17 11:37 17:21 WBC RBC Hgb Hct MCHC RDW Plt Count Lymph % (Auto) Lymph # Seg Neutrophils % Seg Neuts % (Manual) Lymphocytes % (Manual) Seg Neutrophils # Seg Neutrophils # Man PT INR Heparin Anti-Xa Level POC ABG pO2 ABG Hemoglobin ABG Oxyhemoglobin Sodium Potassium Chloride Carbon Dioxide BUN Creatinine Glucose POC Glucose 140 H 142 H 133 H Lactic Acid Calcium AST Total Protein Albumin Urine WBC (Auto) 01/12/20 01/13/20 01/13/20 23:14 05:26 07:00 WBC RBC Hgb Hct MCHC RDW Plt Count Lymph % (Auto) Lymph # Seg Neutrophils % Seg Neuts % (Manual) Lymphocytes % (Manual) Seg Neutrophils # Seg Neutrophils # Man PT INR Heparin Anti-Xa Level POC ABG pO2 ABG Hemoglobin ABG Oxyhemoglobin Sodium Potassium Chloride 110.0 H Carbon Dioxide BUN Creatinine Glucose 139 H POC Glucose 135 H 162 H Lactic Acid Calcium 7.8 L AST Total Protein Albumin Urine WBC (Auto) 01/13/20 01/13/20 01/13/20 12:14 17:52 21:40 WBC RBC Hgb Hct MCHC RDW Plt Count Lymph % (Auto) Lymph # Seg Neutrophils % Seg Neuts % (Manual) Lymphocytes % (Manual) Seg Neutrophils # Seg Neutrophils # Man PT INR Heparin Anti-Xa Level POC ABG pO2 ABG Hemoglobin ABG Oxyhemoglobin Sodium Potassium Chloride Carbon Dioxide BUN Creatinine Glucose POC Glucose 205 H 172 H 186 H Lactic Acid Calcium AST Total Protein Albumin Urine WBC (Auto) 01/14/20 01/14/20 01/14/20 04:28 11:01 11:01 WBC 14.8 H RBC 3.20 L Hgb 9.5 L Hct 28.0 L MCHC RDW Plt Count Lymph % (Auto) Lymph # Seg Neutrophils % Seg Neuts % (Manual) Lymphocytes % (Manual) Seg Neutrophils # Seg Neutrophils # Man PT INR Heparin Anti-Xa Level POC ABG pO2 ABG Hemoglobin ABG Oxyhemoglobin Sodium Potassium 3.2 L Chloride Carbon Dioxide BUN Creatinine 0.4 L Glucose POC Glucose 115 H Lactic Acid Calcium 8.0 L AST Total Protein Albumin Urine WBC (Auto) 01/14/20 01/14/20 01/14/20 11:01 16:33 22:32 WBC RBC Hgb Hct MCHC RDW Plt Count Lymph % (Auto) Lymph # Seg Neutrophils % Seg Neuts % (Manual) Lymphocytes % (Manual) Seg Neutrophils # Seg Neutrophils # Man PT 15.8 H INR 1.23 H Heparin Anti-Xa Level POC ABG pO2 ABG Hemoglobin ABG Oxyhemoglobin Sodium Potassium Chloride Carbon Dioxide BUN Creatinine Glucose POC Glucose 58 L 188 H Lactic Acid Calcium AST Total Protein Albumin Urine WBC (Auto) 01/15/20 01/15/20 01/15/20 05:35 06:19 17:17 WBC RBC Hgb Hct MCHC RDW Plt Count Lymph % (Auto) Lymph # Seg Neutrophils % Seg Neuts % (Manual) Lymphocytes % (Manual) Seg Neutrophils # Seg Neutrophils # Man PT INR Heparin Anti-Xa Level POC ABG pO2 ABG Hemoglobin ABG Oxyhemoglobin Sodium Potassium Chloride Carbon Dioxide BUN Creatinine 0.5 L Glucose 104 H POC Glucose 106 H 183 H Lactic Acid Calcium 7.8 L AST Total Protein Albumin Urine WBC (Auto) 01/15/20 01/16/20 01/16/20 22:29 05:35 05:59 WBC 14.7 H RBC 3.04 L Hgb 9.0 L Hct 27.0 L MCHC RDW Plt Count Lymph % (Auto) 9.1 L Lymph # Seg Neutrophils % 87.3 H Seg Neuts % (Manual) Lymphocytes % (Manual) Seg Neutrophils # 12.9 H Seg Neutrophils # Man PT INR Heparin Anti-Xa Level POC ABG pO2 ABG Hemoglobin ABG Oxyhemoglobin Sodium Potassium Chloride Carbon Dioxide BUN Creatinine Glucose POC Glucose 228 H 130 H Lactic Acid Calcium AST Total Protein Albumin Urine WBC (Auto) 01/16/20 01/16/20 01/16/20 09:52 12:49 17:30 WBC RBC Hgb Hct MCHC RDW Plt Count Lymph % (Auto) Lymph # Seg Neutrophils % Seg Neuts % (Manual) Lymphocytes % (Manual) Seg Neutrophils # Seg Neutrophils # Man PT INR Heparin Anti-Xa Level POC ABG pO2 ABG Hemoglobin ABG Oxyhemoglobin Sodium Potassium Chloride Carbon Dioxide BUN Creatinine Glucose POC Glucose 122 H 142 H 192 H Lactic Acid Calcium AST Total Protein Albumin Urine WBC (Auto) 01/16/20 01/17/20 01/17/20 23:01 08:36 08:36 WBC 12.7 H RBC 2.98 L Hgb 8.9 L Hct 26.4 L MCHC RDW Plt Count Lymph % (Auto) 8.8 L Lymph # 1.1 L Seg Neutrophils % 86.7 H Seg Neuts % (Manual) Lymphocytes % (Manual) Seg Neutrophils # 11.0 H Seg Neutrophils # Man PT INR Heparin Anti-Xa Level POC ABG pO2 ABG Hemoglobin ABG Oxyhemoglobin Sodium Potassium 3.3 L D Chloride Carbon Dioxide BUN Creatinine 0.4 L Glucose POC Glucose 141 H Lactic Acid Calcium 8.1 L AST Total Protein 4.6 L Albumin 1.6 L Urine WBC (Auto) 01/17/20 01/17/20 01/18/20 11:43 23:56 06:27 WBC RBC Hgb Hct MCHC RDW Plt Count Lymph % (Auto) Lymph # Seg Neutrophils % Seg Neuts % (Manual) Lymphocytes % (Manual) Seg Neutrophils # Seg Neutrophils # Man PT INR Heparin Anti-Xa Level POC ABG pO2 ABG Hemoglobin ABG Oxyhemoglobin Sodium Potassium Chloride Carbon Dioxide BUN Creatinine Glucose POC Glucose 137 H 215 H 122 H Lactic Acid Calcium AST Total Protein Albumin Urine WBC (Auto) 01/18/20 01/18/20 01/18/20 07:31 07:31 11:39 WBC 12.1 H RBC 3.23 L Hgb 9.7 L Hct 28.7 L MCHC RDW Plt Count Lymph % (Auto) 9.2 L Lymph # 1.1 L Seg Neutrophils % 85.0 H Seg Neuts % (Manual) Lymphocytes % (Manual) Seg Neutrophils # 10.3 H Seg Neutrophils # Man PT INR Heparin Anti-Xa Level POC ABG pO2 ABG Hemoglobin ABG Oxyhemoglobin Sodium Potassium Chloride Carbon Dioxide BUN Creatinine 0.4 L Glucose 108 H POC Glucose 172 H Lactic Acid Calcium AST Total Protein 5.3 L Albumin 2.1 L Urine WBC (Auto) 01/18/20 01/19/20 01/19/20 18:22 00:15 11:30 WBC RBC Hgb Hct MCHC RDW Plt Count Lymph % (Auto) Lymph # Seg Neutrophils % Seg Neuts % (Manual) Lymphocytes % (Manual) Seg Neutrophils # Seg Neutrophils # Man PT INR Heparin Anti-Xa Level POC ABG pO2 ABG Hemoglobin ABG Oxyhemoglobin Sodium Potassium Chloride Carbon Dioxide BUN Creatinine Glucose POC Glucose 119 H 135 H 163 H Lactic Acid Calcium AST Total Protein Albumin Urine WBC (Auto) 01/19/20 01/19/20 01/20/20 17:44 22:59 03:44 WBC 11.1 H RBC 2.77 L Hgb 8.4 L Hct 25.0 L MCHC RDW Plt Count Lymph % (Auto) Lymph # Seg Neutrophils % 74.6 H Seg Neuts % (Manual) Lymphocytes % (Manual) Seg Neutrophils # 8.3 H Seg Neutrophils # Man PT INR Heparin Anti-Xa Level POC ABG pO2 ABG Hemoglobin ABG Oxyhemoglobin Sodium Potassium Chloride Carbon Dioxide BUN Creatinine Glucose POC Glucose 161 H 182 H Lactic Acid Calcium AST Total Protein Albumin Urine WBC (Auto) 01/20/20 01/21/20 01/21/20 03:44 00:07 05:51 WBC RBC 2.84 L Hgb 8.6 L Hct 25.5 L MCHC RDW Plt Count 463 H Lymph % (Auto) Lymph # Seg Neutrophils % 76.9 H Seg Neuts % (Manual) Lymphocytes % (Manual) Seg Neutrophils # 7.8 H Seg Neutrophils # Man PT INR Heparin Anti-Xa Level POC ABG pO2 ABG Hemoglobin ABG Oxyhemoglobin Sodium Potassium Chloride Carbon Dioxide BUN Creatinine 0.4 L Glucose POC Glucose 68 L Lactic Acid Calcium 7.9 L AST Total Protein 4.7 L Albumin 1.9 L Urine WBC (Auto) 01/21/20 01/21/20 01/21/20 05:51 05:58 11:25 WBC RBC Hgb Hct MCHC RDW Plt Count Lymph % (Auto) Lymph # Seg Neutrophils % Seg Neuts % (Manual) Lymphocytes % (Manual) Seg Neutrophils # Seg Neutrophils # Man PT INR Heparin Anti-Xa Level POC ABG pO2 ABG Hemoglobin ABG Oxyhemoglobin Sodium Potassium Chloride Carbon Dioxide 20 L BUN Creatinine 0.5 L Glucose 130 H POC Glucose 185 H 163 H Lactic Acid Calcium 7.6 L AST Total Protein 5.0 L Albumin 1.9 L Urine WBC (Auto) 01/21/20 01/21/20 01/22/20 16:22 21:17 01:28 WBC RBC 2.60 L Hgb 8.0 L Hct 23.3 L MCHC RDW Plt Count Lymph % (Auto) Lymph # Seg Neutrophils % 74.8 H Seg Neuts % (Manual) Lymphocytes % (Manual) Seg Neutrophils # Seg Neutrophils # Man PT INR Heparin Anti-Xa Level POC ABG pO2 ABG Hemoglobin ABG Oxyhemoglobin Sodium Potassium Chloride Carbon Dioxide BUN Creatinine Glucose POC Glucose 177 H 67 L Lactic Acid Calcium AST Total Protein Albumin Urine WBC (Auto) 01/22/20 01/22/20 01/22/20 01:28 01:28 12:06 WBC RBC Hgb Hct MCHC RDW Plt Count Lymph % (Auto) Lymph # Seg Neutrophils % Seg Neuts % (Manual) Lymphocytes % (Manual) Seg Neutrophils # Seg Neutrophils # Man PT INR Heparin Anti-Xa Level POC ABG pO2 ABG Hemoglobin ABG Oxyhemoglobin Sodium Potassium Chloride 107.6 H Carbon Dioxide BUN Creatinine 0.4 L Glucose 152 H POC Glucose 203 H 140 H Lactic Acid Calcium 7.5 L AST Total Protein 4.0 L Albumin 2.0 L Urine WBC (Auto) 01/22/20 01/22/20 01/23/20 16:24 22:55 06:10 WBC RBC 2.68 L Hgb 8.6 L Hct 24.1 L MCHC 36 H RDW Plt Count Lymph % (Auto) Lymph # Seg Neutrophils % Seg Neuts % (Manual) 71.0 H Lymphocytes % (Manual) Seg Neutrophils # Seg Neutrophils # Man PT INR Heparin Anti-Xa Level POC ABG pO2 ABG Hemoglobin ABG Oxyhemoglobin Sodium Potassium Chloride Carbon Dioxide BUN Creatinine Glucose POC Glucose 205 H 196 H Lactic Acid Calcium AST Total Protein Albumin Urine WBC (Auto) 01/23/20 01/23/20 01/23/20 06:10 07:35 11:59 WBC RBC Hgb Hct MCHC RDW Plt Count Lymph % (Auto) Lymph # Seg Neutrophils % Seg Neuts % (Manual) Lymphocytes % (Manual) Seg Neutrophils # Seg Neutrophils # Man PT INR Heparin Anti-Xa Level POC ABG pO2 ABG Hemoglobin ABG Oxyhemoglobin Sodium Potassium Chloride 108.8 H Carbon Dioxide BUN Creatinine 0.4 L Glucose 105 H POC Glucose 111 H 123 H Lactic Acid Calcium 8.0 L AST Total Protein 4.9 L D Albumin 2.0 L Urine WBC (Auto) 01/23/20 01/24/20 01/24/20 22:45 11:24 16:41 WBC RBC Hgb Hct MCHC RDW Plt Count Lymph % (Auto) Lymph # Seg Neutrophils % Seg Neuts % (Manual) Lymphocytes % (Manual) Seg Neutrophils # Seg Neutrophils # Man PT INR Heparin Anti-Xa Level POC ABG pO2 ABG Hemoglobin ABG Oxyhemoglobin Sodium Potassium Chloride Carbon Dioxide BUN Creatinine Glucose POC Glucose 180 H 182 H 177 H Lactic Acid Calcium AST Total Protein Albumin Urine WBC (Auto) 01/24/20 01/25/20 01/25/20 23:11 07:12 11:35 WBC RBC Hgb Hct MCHC RDW Plt Count Lymph % (Auto) Lymph # Seg Neutrophils % Seg Neuts % (Manual) Lymphocytes % (Manual) Seg Neutrophils # Seg Neutrophils # Man PT INR Heparin Anti-Xa Level POC ABG pO2 ABG Hemoglobin ABG Oxyhemoglobin Sodium Potassium Chloride Carbon Dioxide BUN Creatinine Glucose POC Glucose 142 H 135 H 142 H Lactic Acid Calcium AST Total Protein Albumin Urine WBC (Auto) 01/25/20 01/26/20 01/26/20 16:33 00:04 11:35 WBC RBC Hgb Hct MCHC RDW Plt Count Lymph % (Auto) Lymph # Seg Neutrophils % Seg Neuts % (Manual) Lymphocytes % (Manual) Seg Neutrophils # Seg Neutrophils # Man PT INR Heparin Anti-Xa Level POC ABG pO2 ABG Hemoglobin ABG Oxyhemoglobin Sodium Potassium Chloride Carbon Dioxide BUN Creatinine Glucose POC Glucose 247 H 233 H 200 H Lactic Acid Calcium AST Total Protein Albumin Urine WBC (Auto) 01/26/20 01/26/20 01/26/20 16:30 16:30 17:19 WBC RBC Hgb 7.4 L Hct 22.0 L MCHC RDW Plt Count Lymph % (Auto) Lymph # Seg Neutrophils % Seg Neuts % (Manual) Lymphocytes % (Manual) Seg Neutrophils # Seg Neutrophils # Man PT 18.4 H INR 1.50 H Heparin Anti-Xa Level POC ABG pO2 ABG Hemoglobin ABG Oxyhemoglobin Sodium Potassium Chloride Carbon Dioxide BUN Creatinine Glucose POC Glucose 67 L Lactic Acid Calcium AST Total Protein Albumin Urine WBC (Auto) 01/26/20 01/26/20 01/27/20 20:24 21:32 00:16 WBC RBC Hgb Hct MCHC RDW Plt Count Lymph % (Auto) Lymph # Seg Neutrophils % Seg Neuts % (Manual) Lymphocytes % (Manual) Seg Neutrophils # Seg Neutrophils # Man PT INR Heparin Anti-Xa Level POC ABG pO2 51.8 L ABG Hemoglobin 8.5 L ABG Oxyhemoglobin 84.7 L Sodium Potassium Chloride Carbon Dioxide BUN Creatinine Glucose POC Glucose 162 H 141 H Lactic Acid Calcium AST Total Protein Albumin Urine WBC (Auto) 01/27/20 01/27/20 01/27/20 01:42 02:18 05:57 WBC RBC Hgb Hct MCHC RDW Plt Count Lymph % (Auto) Lymph # Seg Neutrophils % Seg Neuts % (Manual) Lymphocytes % (Manual) Seg Neutrophils # Seg Neutrophils # Man PT INR Heparin Anti-Xa Level 2.00 H POC ABG pO2 ABG Hemoglobin ABG Oxyhemoglobin Sodium Potassium Chloride Carbon Dioxide BUN Creatinine Glucose POC Glucose 183 H 124 H Lactic Acid Calcium AST Total Protein Albumin Urine WBC (Auto) 01/27/20 01/27/20 06:30 06:30 WBC RBC 2.75 L Hgb 8.4 L Hct 24.9 L MCHC RDW 16.0 H Plt Count 474 H Lymph % (Auto) 12.7 L Lymph # Seg Neutrophils % 83.2 H Seg Neuts % (Manual) Lymphocytes % (Manual) Seg Neutrophils # 8.4 H Seg Neutrophils # Man PT INR Heparin Anti-Xa Level POC ABG pO2 ABG Hemoglobin ABG Oxyhemoglobin Sodium Potassium 3.5 L Chloride 110.2 H Carbon Dioxide BUN Creatinine 0.4 L Glucose 101 H POC Glucose Lactic Acid Calcium 7.8 L AST Total Protein Albumin Urine WBC (Auto) Chest x-ray: image reviewed
[2020-01-27] MEDS: MEGESTROL 400 MG/10 ML ORAL LIQD PO SCH (11:08)
[2020-01-27] MEDS ORDERED: POTASSIUM CHLORIDE ER 20 MEQ TAB PO ONE (14:50)
--- NOTE | 2020-01-27 14:50 | Progress Note ---
Assessment and Plan -- Hydropneumothorax, not POA Patient developed hydropneumothorax on 01/15. Surgery consulted and patient had a chest tube placed on 01/15. Surgery following. s/p chest tube removed 01/22 --Acute respiratory failure, not POA likely from Hydropneumothorax, s/p chest tube - improved o2 saturation Now developed recurrent pleural effusion - order for thoracentesis, cont iv lasix -- recurrent Left pleural effusion Wait for thoracentesis, continue Lasix for now, stopped any IV fluid -- Hypernatremia, Resolved -- Sepsis, likely UTI and infected Sacral decubitus ulcer On zosyn now, cont to Monitor vital signs closely -- UTI (urinary tract infection) treated with abx -- Bilateral pulmonary embolism Had pulmonary embolism 7 months ago. As per pulmonology, patient needs indefinite anticoagulation will hold eliquis for now and place heparin drip as patient will need thoracentesis --Sacral decubitus ulcer, infected This was present on admission Now status post wound debridement on 01/15. Wound vac in place Continue wound care ID consulted, cont zosyn 4.5 g IV every 8 hours total 6 weeks till 02/27/2020 on discharge. -- Uncontrolled diabetes mellitus DM management with SSI, TF -- Dementia Continue donepezil -- Moderate protein-calorie malnutrition She is not eating well and is getting feeds through the NG tube. Discussed with - this problem has been chronic and he is open to getting a PEG placement to supplement her intake PEG placed 01/13. Now on tube feeds -- DVT prophylaxis heparin drip for PE treatment Brief history: Patient is a 69-year-old -[place] female with known history of dementia, diabetes mellitus and pulmonary embolism was brought into the emergency room for decreased responsiveness, lethargy and hypotension. According to home health nurse patient has become less active and blood pressure was said to be low. She was brought to the emergency room for evaluation. Further history cannot be obtained from patient. Upon arrival in the emergency room patient had a low-grade fever. Work-up in the emergency room reveals elevated white blood cell count of 13.5, elevated BUN and creatinine 30 and 1.1 respectively. Found to be dehydrated and hypernatremic. Urinalysis shows UTI. Patient subsequently started on IV fluid and empiric IV antibiotics admitted for further evaluation. 01/08. Patient seen and examined at bedside this month. Patient not talking much this morning. Discussed case with patient spouse [patient usually does not talk much due to possible underlying dementia]. Started patient on her home medications today. Sodium slightly elevated from yesterday-162. Switch to hypotonic solution after resuscitation. Monitor BMP 01/09. More awake today. Sodium is improving. Has tachycardia today. Received a dose of metoprolol and is on telemetry. No arrhythmias noted. Has no congestion on chest xray. Will continue IV hydration for now. She needs assistance with meals due to advanced dementia. 01/10. Sodium is improving, will speak to family about diet and possible NGT and medication, Her dementia may be the prohibiting factor. Anticipate discharge in 24 to 48 hrs. ?IF SHE IS BEDBOUND. Continue Antibiotics. 01/11. Patient seen and examined at bedside this morning. She is not eating. Di scussed with patients - plan for PEG placement. GI consulted. Blood culture from 01/07 grew GN rods. Repeat Blood culture sent. She is on ceftriaxone. Her sodium level is improving gradually. 01/12. Plan for tube placement. GI on board. 01/13. Patient had temperature 101 overnight. Patient has been on appropriate antibiotics for UTI. Urine culture has been reviewed. This point need to abel luate for other etiology of fever. Surgery consulted for evaluation for need for wound debridement. Plan for PEG tube placement today. 01/14. PEG tube placed. Surgery and ID on board. Plan for wound debridement as per surgery 01/15. Plan for debridement today as per surgery. 01/15. 2pm. Patient noted to be tachycardic and slightly hypoxic after having sacral decubitus debridement. She was placed on Ventimask. EKG performed for tachycardia shows sinus tachycardia. Patient received bolus 500 cc and 1 dose of metoprolol with slight improvement. Stat chest x-ray performed shows new small to moderate hydropneumothorax. Discussed with central service tech. Patient had a left-sided chest tube placed by surgery for pneumothorax. 01/16. Patient seen and examined at bedside this morning. Patient is awake looks comfortable. Has left-sided chest tube in place. Repeat x-ray ordered this morning and it shows no significant change from yesterday. Surgery is following for chest tube management. Will discuss with today Plan to resume Eliquis when okay with surgery 01/17. No change in medical condition. She is still tachy. Cardiology evaluation appreciated. Wound vac to sacral wound in place. Left chest tube in place. Surgery following. Ordered one dose of albumin today. I updated patients this PM. ID consulted 01/18. Antibiotics switched to zosyn. Duration of antibiotics to be determined. 01/19; Chest Tube placed on waterseal today, plan to repeat CXR tomorrow. patient on wound vac and ventimask 01/20: Chest tube still with moderate serous drainage. planned to trend output for one more day and dc CT if trending down. repeat CXR in am 01/21: Chest tube to be discontinued today. Repeat CXR in am after removing chest tube. if clinically stable then possible d/c in the am. 01/22: chest tube removed yesterday. Patient now weaned off to RA. Planned for d/c today but family not ready to accept the patient before Sunday. CM working on d/c planning. 01/23: plan to d/c Sunday with 24/7 family care. family stated they cannot provided 24/7 care before Sunday. patient tolerating diet, off chest tube, on RA 01/24: plan to d/c Sunday with 24/7 family care. cont supportive care. discussed with her in details. 01/25: noted to be hypoxic in RA, repeat CXR showed leftsided huge pleural effusion. ordered for thoracentesis, hold eliquis - start on heparin drip. 01/26: Monitor at ICU, wean off from Levophed as tolerated, plan for thoracentesis -ordered Subjective Date of service: 01/27/20 Principal diagnosis: Bacteremia Interval history: Patient seen and examined patient on n/c, on levophed does not follow commend, nonverbal tolerating bolus TF Objective - Exam Narrative Exam: General appearance: Present: mild distress - EENT Eyes: Present: PERRL - Respiratory Respiratory: left: diminished, - Cardiovascular Rhythm: regular Heart Sounds: Present: S1 & S2 - Extremities Extremity abnormal: edema - Abdominal General gastrointestinal: soft, non-tender, non-distended - Neurologic Neurologic: does not follow commend, patient appears lethargic Skin: no rash - Constitutional Vitals: Vital Signs - 12hr 01/27/20 01/27/20 01/27/20 02:50 03:00 03:10 Temperature Pulse Rate 58 L 56 L 58 L Pulse Rate [ From Monitor] Respiratory 15 16 16 Rate Blood Pressure 95/50 95/50 93/50 O2 Sat by Pulse 100 100 100 Oximetry 01/27/20 01/27/20 01/27/20 03:20 03:30 03:40 Temperature Pulse Rate 58 L 59 L 61 Pulse Rate [ From Monitor] Respiratory 14 16 16 Rate Blood Pressure 91/48 91/48 88/48 O2 Sat by Pulse 100 100 100 Oximetry 01/27/20 01/27/20 01/27/20 03:50 04:00 04:06 Temperature 97.6 F Pulse Rate 60 97 H Pulse Rate [ 82 From Monitor] Respiratory 18 22 23 Rate Blood Pressure 94/49 94/49 O2 Sat by Pulse 100 100 100 Oximetry 01/27/20 01/27/20 01/27/20 04:10 04:20 04:24 Temperature Pulse Rate 82 79 84 Pulse Rate [ From Monitor] Respiratory 22 25 H 27 H Rate Blood Pressure 94/49 135/60 136/60 O2 Sat by Pulse 100 100 99 Oximetry 01/27/20 01/27/20 01/27/20 04:30 04:40 04:50 Temperature Pulse Rate 90 85 84 Pulse Rate [ From Monitor] Respiratory 22 26 H 27 H Rate Blood Pressure 135/60 125/59 105/50 O2 Sat by Pulse 98 98 98 Oximetry 01/27/20 01/27/20 01/27/20 05:00 05:10 05:20 Temperature Pulse Rate 86 90 94 H Pulse Rate [ From Monitor] Respiratory 26 H 25 H 25 H Rate Blood Pressure 105/50 99/56 96/50 O2 Sat by Pulse 97 98 98 Oximetry 01/27/20 01/27/20 01/27/20 05:33 05:41 05:51 Temperature Pulse Rate 96 H 99 H 99 H Pulse Rate [ From Monitor] Respiratory 25 H 24 28 H Rate Blood Pressure 102/54 103/55 O2 Sat by Pulse 98 98 98 Oximetry 01/27/20 01/27/20 01/27/20 05:59 06:00 06:11 Temperature Pulse Rate 101 H 100 H Pulse Rate [ 82 From Monitor] Respiratory 23 25 H 25 H Rate Blood Pressure 105/57 105/57 O2 Sat by Pulse 100 97 98 Oximetry 01/27/20 01/27/20 01/27/20 06:21 06:30 06:41 Temperature Pulse Rate 102 H 104 H 105 H Pulse Rate [ From Monitor] Respiratory 27 H 27 H 27 H Rate Blood Pressure 103/55 101/56 101/56 O2 Sat by Pulse 98 97 98 Oximetry 01/27/20 01/27/20 01/27/20 06:51 07:00 07:11 Temperature Pulse Rate 105 H 104 H 113 H Pulse Rate [ From Monitor] Respiratory 27 H 28 H 25 H Rate Blood Pressure 99/56 96/53 96/53 O2 Sat by Pulse 98 97 97 Oximetry 01/27/20 01/27/20 01/27/20 07:21 07:30 07:41 Temperature Pulse Rate 109 H 106 H 102 H Pulse Rate [ From Monitor] Respiratory 26 H 26 H 27 H Rate Blood Pressure 103/60 94/48 94/48 O2 Sat by Pulse 97 97 97 Oximetry 01/27/20 01/27/20 01/27/20 07:51 07:54 08:00 Temperature Pulse Rate 102 H 105 H 103 H Pulse Rate [ From Monitor] Respiratory 26 H 25 H 27 H Rate Blood Pressure 87/47 87/47 94/49 O2 Sat by Pulse 97 98 Oximetry 01/27/20 01/27/20 01/27/20 08:11 08:21 08:30 Temperature Pulse Rate 105 H 108 H 110 H Pulse Rate [ From Monitor] Respiratory 27 H 25 H 25 H Rate Blood Pressure 94/49 87/47 92/49 O2 Sat by Pulse 97 96 Oximetry 01/27/20 01/27/20 01/27/20 08:41 08:47 08:51 Temperature 97.4 F L Pulse Rate 111 H 110 H Pulse Rate [ From Monitor] Respiratory 26 H 26 H Rate Blood Pressure 92/49 101/59 O2 Sat by Pulse 96 96 Oximetry 01/27/20 01/27/20 01/27/20 09:00 09:11 09:21 Temperature Pulse Rate 113 H 111 H 112 H Pulse Rate [ From Monitor] Respiratory 27 H 27 H 27 H Rate Blood Pressure 92/49 92/49 95/45 O2 Sat by Pulse 96 96 97 Oximetry 01/27/20 01/27/20 01/27/20 09:30 09:41 09:51 Temperature Pulse Rate 113 H 112 H 114 H Pulse Rate [ From Monitor] Respiratory 27 H 28 H 28 H Rate Blood Pressure 91/48 91/48 93/44 O2 Sat by Pulse 96 96 98 Oximetry 01/27/20 01/27/20 01/27/20 09:54 10:00 10:11 Temperature 98.1 F Pulse Rate 115 H 114 H Pulse Rate [ From Monitor] Respiratory 30 H 29 H Rate Blood Pressure 97/50 97/50 O2 Sat by Pulse 97 Oximetry 01/27/20 01/27/20 01/27/20 10:21 10:30 10:41 Temperature Pulse Rate 114 H 118 H 114 H Pulse Rate [ From Monitor] Respiratory 28 H 30 H 27 H Rate Blood Pressure 97/50 98/53 98/53 O2 Sat by Pulse 97 96 97 Oximetry 01/27/20 01/27/20 01/27/20 10:51 11:00 11:11 Temperature Pulse Rate 114 H 112 H 112 H Pulse Rate [ From Monitor] Respiratory 29 H 28 H 27 H Rate Blood Pressure 93/50 98/47 98/47 O2 Sat by Pulse 96 96 97 Oximetry 01/27/20 01/27/20 01/27/20 11:21 11:30 11:41 Temperature Pulse Rate 112 H 113 H 121 H Pulse Rate [ From Monitor] Respiratory 28 H 27 H 27 H Rate Blood Pressure 96/51 95/49 95/49 O2 Sat by Pulse 96 96 96 Oximetry 01/27/20 01/27/20 01/27/20 11:51 12:01 12:11 Temperature Pulse Rate 123 H 128 H 123 H Pulse Rate [ From Monitor] Respiratory 34 H 26 H 30 H Rate Blood Pressure 95/42 105/55 105/55 O2 Sat by Pulse 96 96 97 Oximetry 01/27/20 01/27/20 01/27/20 12:21 12:27 12:30 Temperature 98.3 F Pulse Rate 122 H 122 H Pulse Rate [ From Monitor] Respiratory 29 H 30 H Rate Blood Pressure 115/50 105/56 O2 Sat by Pulse 97 98 Oximetry 01/27/20 01/27/20 01/27/20 12:41 12:47 12:51 Temperature 98.3 F Pulse Rate 124 H 121 H Pulse Rate [ From Monitor] Respiratory 30 H 30 H Rate Blood Pressure 105/56 102/53 O2 Sat by Pulse 97 97 Oximetry 01/27/20 01/27/20 01/27/20 13:00 13:11 13:21 Temperature Pulse Rate 120 H 119 H 120 H Pulse Rate [ From Monitor] Respiratory 28 H 27 H 32 H Rate Blood Pressure 92/44 92/44 100/50 O2 Sat by Pulse 98 98 99 Oximetry 01/27/20 01/27/20 01/27/20 13:30 13:41 13:51 Temperature Pulse Rate 119 H 120 H 125 H Pulse Rate [ From Monitor] Respiratory 28 H 29 H 28 H Rate Blood Pressure 98/45 98/45 108/48 O2 Sat by Pulse 99 99 98 Oximetry 01/27/20 01/27/20 01/27/20 14:00 14:11 14:21 Temperature Pulse Rate 124 H 118 H 117 H Pulse Rate [ From Monitor] Respiratory 29 H 28 H 27 H Rate Blood Pressure 104/50 104/50 108/47 O2 Sat by Pulse 98 99 99 Oximetry 01/27/20 01/27/20 14:30 14:41 Temperature Pulse Rate 114 H 118 H Pulse Rate [ From Monitor] Respiratory 27 H 29 H Rate Blood Pressure 99/48 99/48 O2 Sat by Pulse 99 99 Oximetry - Labs CBC & Chem 7: 01/28/20 04:26 01/28/20 04:26 Labs: Abnormal lab results 01/26/20 01/26/20 01/26/20 Range/Units 16:30 16:30 17:19 RBC (3.65-5.03) M/mm3 Hgb 7.4 L (10.1-14.3) gm/dl Hct 22.0 L (30.3-42.9) % RDW (13.2-15.2) % Plt Count (140-440) K/mm3 Lymph % (Auto) (13.4-35.0) % Seg Neutrophils % (40.0-70.0) % Seg Neutrophils # (1.8-7.7) K/mm3 PT 18.4 H (12.2-14.9) Sec. INR 1.50 H (0.87-1.13) Heparin Anti-Xa Level (0.3-0.7) U.I./ml POC ABG pO2 (83-108) mmHg ABG Hemoglobin (12.0-17.5) ABG Oxyhemoglobin (94-98) Potassium (3.6-5.0) mmol/L Chloride (98-107) mmol/L Creatinine (0.6-1.2) mg/dL POC Glucose 67 L (70-105) Glucose (65-100) mg/dL Calcium (8.4-10.2) mg/dL 01/26/20 01/26/20 01/27/20 Range/Units 20:24 21:32 00:16 RBC (3.65-5.03) M/mm3 Hgb (10.1-14.3) gm/dl Hct (30.3-42.9) % RDW (13.2-15.2) % Plt Count (140-440) K/mm3 Lymph % (Auto) (13.4-35.0) % Seg Neutrophils % (40.0-70.0) % Seg Neutrophils # (1.8-7.7) K/mm3 PT (12.2-14.9) Sec. INR (0.87-1.13) Heparin Anti-Xa Level (0.3-0.7) U.I./ml POC ABG pO2 51.8 L (83-108) mmHg ABG Hemoglobin 8.5 L (12.0-17.5) ABG Oxyhemoglobin 84.7 L (94-98) Potassium (3.6-5.0) mmol/L Chloride (98-107) mmol/L Creatinine (0.6-1.2) mg/dL POC Glucose 162 H 141 H (70-105) Glucose (65-100) mg/dL Calcium (8.4-10.2) mg/dL 01/27/20 01/27/20 01/27/20 Range/Units 01:42 02:18 05:57 RBC (3.65-5.03) M/mm3 Hgb (10.1-14.3) gm/dl Hct (30.3-42.9) % RDW (13.2-15.2) % Plt Count (140-440) K/mm3 Lymph % (Auto) (13.4-35.0) % Seg Neutrophils % (40.0-70.0) % Seg Neutrophils # (1.8-7.7) K/mm3 PT (12.2-14.9) Sec. INR (0.87-1.13) Heparin Anti-Xa Level 2.00 H (0.3-0.7) U.I./ml POC ABG pO2 (83-108) mmHg ABG Hemoglobin (12.0-17.5) ABG Oxyhemoglobin (94-98) Potassium (3.6-5.0) mmol/L Chloride (98-107) mmol/L Creatinine (0.6-1.2) mg/dL POC Glucose 183 H 124 H (70-105) Glucose (65-100) mg/dL Calcium (8.4-10.2) mg/dL 01/27/20 01/27/20 Range/Units 06:30 06:30 RBC 2.75 L (3.65-5.03) M/mm3 Hgb 8.4 L (10.1-14.3) gm/dl Hct 24.9 L (30.3-42.9) % RDW 16.0 H (13.2-15.2) % Plt Count 474 H (140-440) K/mm3 Lymph % (Auto) 12.7 L (13.4-35.0) % Seg Neutrophils % 83.2 H (40.0-70.0) % Seg Neutrophils # 8.4 H (1.8-7.7) K/mm3 PT (12.2-14.9) Sec. INR (0.87-1.13) Heparin Anti-Xa Level (0.3-0.7) U.I./ml POC ABG pO2 (83-108) mmHg ABG Hemoglobin (12.0-17.5) ABG Oxyhemoglobin (94-98) Potassium 3.5 L (3.6-5.0) mmol/L Chloride 110.2 H (98-107) mmol/L Creatinine 0.4 L (0.6-1.2) mg/dL POC Glucose (70-105) Glucose 101 H (65-100) mg/dL Calcium 7.8 L (8.4-10.2) mg/dL
--- NOTE | 2020-01-27 15:19 | Vascular Lab Report ---
DUPLEX DOPPLER LOWER EXTREMITY VEINS, BILATERAL INDICATION / CLINICAL INFORMATION: Swollen extremities. TECHNIQUE: Duplex doppler imaging was performed through the veins of both lower extremities using venous radha afia and other maneuvers. COMPARISON: None available. FINDINGS: RIGHT COMMON FEMORAL VEIN: Negative. RIGHT FEMORAL VEIN: Negative. RIGHT POPLITEAL VEIN: Negative. RIGHT CALF VEINS: Negative. LEFT COMMON FEMORAL VEIN: Negative. LEFT FEMORAL VEIN: Negative. LEFT POPLITEAL VEIN: Negative. LEFT CALF VEINS: Negative. ADDITIONAL FINDINGS: None. IMPRESSION: 1. No sonographic evidence for DVT in either lower extremity. Signer Name: Sundar Spring MD Signed: 01/27/2020 3:14 PM Workstation Name: [id number]
[2020-01-28] MEDS: INSULIN REGULAR, HUMAN 100 UNIT/ML 3ML VIAL SUB-Q SCH ×5 (00:07→17:37)
[2020-01-28] MEDS: PIPERACIL/TAZOBACTA 4.5/NS 100 4.5 GM/100 ML VIAL IV SCH ×3 (05:32→21:16)
[2020-01-28 05:37] LABS: Hematocrit 28.5 % (30.3-42.9); Hemoglobin 9.6 gm/dl (10.1-14.3)
[2020-01-28 06:04] LABS: Blood Urea Nitrogen 20 mg/dL (7-17); Calcium 7.9 mg/dL (8.4-10.2); Hemolysis Index 37
[2020-01-28 06:09] LABS: BUN/Creatinine Ratio 40
[2020-01-28] MEDS ORDERED: MIDAZOLAM 5 MG/5 ML INJ MDV IV ONE (10:00)
[2020-01-28] MEDS ORDERED: ROCURONIUM 50 MG/5 ML INJ IV ONE (10:00)
[2020-01-28] MEDS ORDERED: fentaNYL 100 MCG/2 ML INJ IV ONE ×2 (10:00→11:00)
[2020-01-28] MEDS ORDERED: ATROPINE 0.1% (1 MG/10 ML) CARDIAC SYRINGE ONE (10:22)
[2020-01-28] MEDS ORDERED: EPINEPHrine 1 MG/10 ML SYRINGE ONE (10:22)
[2020-01-28] MEDS ORDERED: SODIUM BICARB 8.4% 50 MEQ/50 ML SYRINGE IV ONE (10:22)
[2020-01-28] MEDS ORDERED: SODIUM CHLORIDE IRRI 1000 ML 1,000 ML IR ONE (10:23)
[2020-01-28] MEDS ORDERED: SODIUM CHLORIDE 0.9% IRR 1,000 ML BOTTLE IR ONE (10:45)
--- NOTE | 2020-01-28 10:54 | Procedure Note ---
Date of procedure: 01/28/20 Pre-op diagnosis: Acute hypxemic respiraotry failure, severe sepsis Post-op diagnosis: same Procedure: Endotracheal intubation using glidescope. IV fentanyl, Midazolam administered. Paralytic- IV Rocuronium 50mg. Patient Ambu-bagged to 100%. Using the glidescope a 7.5cm ETT was placed without difficulty. End tidal CO2 with good color change, condensation in the tube with equal breath sounds bilaterally. Post procedure CXR ordered. CXR -reviewed. ETT in good position with re-expansion of the left lung. Subcutaneous emphysema, no pneumothorax. Anesthesia: other (RSI) Surgeon: MATILDE CASPER Estimated blood loss: none Condition: critical Disposition: ICU
--- NOTE | 2020-01-28 10:54 | Event Note ---
Date: 01/28/20 Bradycardia with PEA arrest. Patient coded per ACLS protocol with ROSC See code blue documents for details Called her son to update him. Left a voicemail without information, only my contact number
[2020-01-28] MEDS ORDERED: SODIUM CHLORIDE 0.9% 1000 ML 1,000 ML ONE (10:55)
[2020-01-28] MEDS ORDERED: LIP THERAPY VASELINE TP PRN (10:57)
[2020-01-28] MEDS ORDERED: fentaNYL 100 MCG/2 ML INJ IV PRN (10:57)
[2020-01-28] MEDS ORDERED: MINERAL OIL/PETROLATUM, WHITE OPHTH OINT 3.5 GM OU PRN (10:57)
[2020-01-28] MEDS ORDERED: LACTATED RINGERS 1,000 ML IV ONE (11:00)
[2020-01-28] MEDS ORDERED: fentaNYL DRIP Premix 2,000 MCG/100 ML BAG IV SCH (11:00)
--- NOTE | 2020-01-28 11:08 | XRay Report ---
CHEST 1 VIEW INDICATION: left lung atelectasis/ET Tube placement.. COMPARISON: 01/26/2020. FINDINGS: Support devices: Endotracheal tube and left-sided PICC line in satisfactory position. Heart: Within normal limits. Lungs/Pleura: Reexpansion of the right lung. Residual pleural fluid/opacity at the bases right greate r than left. Deep cervical air, pneumomediastinum in pneumopericardium. Additional findings: None. IMPRESSION: 1. Improving aeration at the bases status post ET tube placement. 2. Deep cervical air, pneumomediastinum and pneumopericardium. Signer Name: Nadeem Solis MD Signed: 01/28/2020 11:04 AM Workstation Name: [id number]
[2020-01-28] MEDS: FAMOTIDINE 20 MG TAB PO SCH ×2 (11:58→21:17)
[2020-01-28] MEDS: NORepinephrine/NS 4 MG-250 ML 4 MG/250 ML BAG IV SCH ×3 (13:23→21:15)
[2020-01-28] MEDS: MEGESTROL 400 MG/10 ML ORAL LIQD PO SCH (15:44)
[2020-01-28] MEDS: HEPARIN 5,000 UNIT/1 ML VIAL SUB-Q SCH ×2 (15:44→21:18)
--- NOTE | 2020-01-28 16:13 | Progress Note ---
Assessment and Plan -- s/p PEA cardiac arrest Noted Bradycardia with PEA arrest following intubation. Patient coded per ACLS protocol with ROSC -- Hydropneumothorax, not POA Patient developed hydropneumothorax on 01/15. Surgery consulted and patient had a chest tube placed on 01/15. Surgery following. s/p chest tube removed 01/22 --Acute respiratory failure, not POA likely from Hydropneumothorax, and recurrent left pleural effusion s/p chest tube - improved o2 saturation Now developed recurrent pleural effusion - ordered for thoracentesis, cont iv lasix patient intubated today -- large Left pleural effusion 01/25 Wait for thoracentesis, continue Lasix for now, stopped any IV fluid -- Hypernatremia, Resolved -- Sepsis, likely UTI and infected Sacral decubitus ulcer On zosyn now, cont to Monitor vital signs closely -- UTI (urinary tract infection) treated with abx -- Bilateral pulmonary embolism Had pulmonary embolism 7 months ago. CTA chest and LE doppler showed no acute PE or DVT eliquis now stopped --Sacral decubitus ulcer, infected This was present on admission Now status post wound debridement on 01/15. Wound vac in place Continue wound care ID consulted, cont zosyn 4.5 g IV every 8 hours total 6 weeks till 02/27/2020 on discharge. -- Uncontrolled diabetes mellitus DM management with SSI, TF -- Dementia Continue donepezil -- Moderate protein-calorie malnutrition She is not eating well and is getting feeds through the NG tube. Discussed with - this problem has been chronic and he is open to getting a PEG placement to supplement her intake PEG placed 01/13. Now on tube feeds -- DVT prophylaxis heparin drip for PE treatment The high probability of a clinically significant, sudden or life threatening deterioration of the [Respiratory, PROJECTOR BOOTH OPERATOR, CVs] system(s) required my full and direct attention, intervention and personal management. The aggregate critical care time was [34] minutes. This time is in addition to time spent performing reported procedures but includes the following: [x] Data Review and interpretation [x] Patient assessment and monitoring of vital signs [x] Documentation [x] Medication orders and management Brief history: Patient is a 69-year-old -[place] female with known history of dementia, diabetes mellitus and pulmonary embolism was brought into the emergency room for decreased responsiveness, lethargy and hypotension. According to home health nurse patient has become less active and blood pressure was said to be low. She was brought to the emergency room for evaluation. Further history cannot be obtained from patient. Upon arrival in the emergency room patient had a low-grade fever. Work-up in the emergency room reveals elevated white blood cell count of 13.5, elevated BUN and creatinine 30 and 1.1 respectively. Found to be dehydrated and hypernatremic. Urinalysis shows UTI. Patient subsequently started on IV fluid and empiric IV antibiotics admitted for further evaluation. 01/08. Patient seen and examined at bedside this month. Patient not talking much this morning. Discussed case with patient spouse [patient usually does not talk much due to possible underlying dementia]. Started patient on her home medications today. Sodium slightly elevated from yesterday-162. Switch to hypotonic solution after resuscitation. Monitor BMP 01/09. More awake today. Sodium is improving. Has tachycardia today. Received a dose of metoprolol and is on telemetry. No arrhythmias noted. Has no congestion on chest xray. Will continue IV hydration for now. She needs assistance with meals due to advanced dementia. 01/10. Sodium is improving, will speak to family about diet and possible NGT and medication, Her dementia may be the prohibiting factor. Anticipate discharge in 24 to 48 hrs. ?IF SHE IS BEDBOUND. Continue Antibiotics. 01/11. Patient seen and examined at bedside this morning. She is not eating. Discussed with patients - plan for PEG placement. GI consulted. Blood culture from 01/07 grew GN rods. Repeat Blood culture sent. She is on ceftriaxone. Her sodium level is improving gradually. 01/12. Plan for tube placement. GI on board. 01/13. Patient had temperature 101 overnight. Patient has been on appropriate antibiotics for UTI. Urine culture has been reviewed. This point need to evaluate for other etiology of fever. Surgery consulted for evaluation for need for wound debridement. Plan for PEG tube placement today. 01/14. PEG tube placed. Surgery and ID on board. Plan for wound debridement as per surgery 01/15. Plan for debridement today as per surgery. 01/15. 2pm. Patient noted to be tachycardic and slightly hypoxic after having sacral decubitus debridement. She was placed on Ventimask. EKG performed for tachycardia shows sinus tachycardia. Patient received bolus 500 cc and 1 dose of metoprolol with slight improvement. Stat chest x-ray performed shows new small to moderate hydropneumothorax. Discussed with survey project manager. Patient had a left-sided chest tube placed by surgery for pneumothorax. 01/16. Patient seen and examined at bedside this morning. Patient is awake looks comfortable. Has left-sided chest tube in place. Repeat x-ray ordered this morning and it shows no significant change from yesterday. Surgery is following for chest tube management. Will discuss with today Plan to resume Eliquis when okay with surgery 01/17. No change in medical condition. She is still tachy. Cardiology evaluation appreciated. Wound vac to sacral wound in place. Left chest tube in place. Surgery following. Ordered one dose of albumin today. I updated patients this PM. ID consulted 01/18. Antibiotics switched to zosyn. Duration of antibiotics to be determined. 01/19; Chest Tube placed on waterseal today, plan to repeat CXR tomorrow. patient on wound vac and ventimask 01/20: Chest tube still with moderate serous drainage. planned to trend output for one more day and dc CT if trending down. repeat CXR in am 01/21: Chest tube to be discontinued today. Repeat CXR in am after removing chest tube. if clinically stable then possible d/c in the am. 01/22: chest tube removed yesterday. Patient now weaned off to RA. Planned for d/c today but family not ready to accept the patient before Sunday. CM working on d/c planning. 01/23: plan to d/c Sunday with 24/7 family care. family stated they cannot provided 24/7 care before Sunday. patient tolerating diet, off chest tube, on RA 01/24: plan to d/c Sunday with 24/7 family care. cont supportive care. discussed with her in details. 01/25: noted to be hypoxic in RA, repeat CXR showed leftsided huge pleural effusion. ordered for thoracentesis, hold eliquis - start on heparin drip. 01/26: Monitor at ICU, wean off from Levophed as tolerated, plan for thorac entesis -ordered 01/27; intubated this am. then developed Bradycardia with PEA arrest. Patient coded per ACLS protocol with ROSC. Family called and updated. stopped anticoagulation as CTA chest and LE doppler showed no acute PE or DVT. Subjective Date of service: 01/28/20 Principal diagnosis: Bacteremia Interval history: Patient seen and examined patient on n/c, on levophed intubated this am, coded this am following intubation tolerating bolus TF Objective - Exam Narrative Exam: General appearance: Present: intubated - EENT Eyes: no conjunctival congestion - Respiratory Respiratory: left: diminished, - Cardiovascular Rhythm: regular Heart Sounds: Present: S1 & S2 - Extremities Extremity abnormal: edema - Abdominal General gastrointestinal: soft, non-tender, non-distended - Neurologic Neurologic: intubated, unresponsive Skin: no rash - Constitutional Vitals: Vital Signs - 12hr 01/28/20 01/28/20 01/28/20 04:20 04:30 04:41 Temperature Pulse Rate 114 H 115 H 115 H Pulse Rate [ From Monitor] Respiratory 30 H 32 H 30 H Rate Blood Pressure 110/50 106/57 106/57 O2 Sat by Pulse 90 91 90 Oximetry 01/28/20 01/28/20 01/28/20 04:51 05:00 05:06 Temperature Pulse Rate 115 H 112 H 113 H Pulse Rate [ From Monitor] Respiratory 30 H 30 H 29 H Rate Blood Pressure 106/57 96/57 96/57 O2 Sat by Pulse 89 91 93 Oximetry 01/28/20 01/28/20 01/28/20 05:11 05:21 05:30 Temperature Pulse Rate 109 H 110 H 110 H Pulse Rate [ From Monitor] Respiratory 24 31 H 29 H Rate Blood Pressure 96/57 96/57 101/52 O2 Sat by Pulse 92 93 95 Oximetry 01/28/20 01/28/20 01/28/20 05:41 05:51 06:00 Temperature Pulse Rate 96 H 89 117 H Pulse Rate [ From Monitor] Respiratory 26 H 22 29 H Rate Blood Pressure 101/52 101/52 107/63 O2 Sat by Pulse 95 96 96 Oximetry 01/28/20 01/28/20 01/28/20 06:11 06:21 06:30 Temperature Pulse Rate 115 H 118 H 115 H Pulse Rate [ From Monitor] Respiratory 26 H 29 H 28 H Rate Blood Pressure 107/63 107/63 98/60 O2 Sat by Pulse 98 96 97 Oximetry 01/28/20 01/28/20 01/28/20 06:41 06:51 07:01 Temperature Pulse Rate 112 H 111 H 109 H Pulse Rate [ From Monitor] Respiratory 27 H 30 H 29 H Rate Blood Pressure 98/60 89/54 102/57 O2 Sat by Pulse 94 94 94 Oximetry 01/28/20 01/28/20 01/28/20 07:11 07:21 07:30 Temperature Pulse Rate 109 H 107 H 108 H Pulse Rate [ From Monitor] Respiratory 29 H 27 H 29 H Rate Blood Pressure 102/57 108/64 107/57 O2 Sat by Pulse 94 94 94 Oximetry 01/28/20 01/28/20 01/28/20 07:41 07:51 08:00 Temperature 98.8 F Pulse Rate 106 H 110 H Pulse Rate [ 116 H From Monitor] Respiratory 30 H 30 H Rate Blood Pressure 107/57 121/49 O2 Sat by Pulse 96 93 90 Oximetry 01/28/20 01/28/20 01/28/20 08:01 08:11 08:21 Temperature Pulse Rate 98 H 106 H 105 H Pulse Rate [ From Monitor] Respiratory 34 H 28 H 26 H Rate Blood Pressure 140/79 140/79 124/59 O2 Sat by Pulse 92 94 94 Oximetry 01/28/20 01/28/20 01/28/20 08:31 08:41 08:51 Temperature Pulse Rate 113 H 105 H 105 H Pulse Rate [ From Monitor] Respiratory 31 H 27 H 27 H Rate Blood Pressure 108/59 108/59 99/50 O2 Sat by Pulse 92 92 91 Oximetry 01/28/20 01/28/20 01/28/20 09:00 09:11 09:21 Temperature Pulse Rate 106 H 106 H 104 H Pulse Rate [ From Monitor] Respiratory 26 H 27 H 28 H Rate Blood Pressure 110/48 110/48 101/57 O2 Sat by Pulse 90 90 88 Oximetry 01/28/20 01/28/20 01/28/20 09:30 09:41 09:51 Temperature Pulse Rate 101 H 105 H 109 H Pulse Rate [ From Monitor] Respiratory 28 H 29 H 25 H Rate Blood Pressure 101/53 101/53 92/49 O2 Sat by Pulse 87 100 100 Oximetry 01/28/20 01/28/20 01/28/20 09:58 10:00 10:11 Temperature Pulse Rate 108 H 105 H 112 H Pulse Rate [ From Monitor] Respiratory 28 H 28 H 30 H Rate Blood Pressure 97/54 89/51 99/59 O2 Sat by Pulse 100 100 99 Oximetry 01/28/20 01/28/20 01/28/20 10:21 10:30 10:41 Temperature Pulse Rate 42 L 145 H Pulse Rate [ From Monitor] Respiratory 20 18 Rate Blood Pressure 49/26 130/76 O2 Sat by Pulse 86 100 100 Oximetry 01/28/20 01/28/20 01/28/20 10:51 10:52 11:01 Temperature Pulse Rate 135 H 132 H 129 H Pulse Rate [ From Monitor] Respiratory 16 19 Rate Blood Pressure 71/44 71/44 72/35 O2 Sat by Pulse 100 100 100 Oximetry 01/28/20 01/28/20 01/28/20 11:10 11:20 11:30 Temperature Pulse Rate 126 H 126 H 127 H Pulse Rate [ From Monitor] Respiratory 18 18 16 Rate Blood Pressure 98/53 109/59 105/60 O2 Sat by Pulse 100 100 100 Oximetry 01/28/20 01/28/20 01/28/20 11:40 11:51 12:00 Temperature 98.9 F Pulse Rate 128 H 128 H Pulse Rate [ 116 H From Monitor] Respiratory 17 18 Rate Blood Pressure 99/62 89/43 O2 Sat by Pulse 100 98 90 Oximetry 01/28/20 01/28/20 01/28/20 12:01 12:10 12:20 Temperature Pulse Rate 129 H 132 H 130 H Pulse Rate [ From Monitor] Respiratory 13 18 18 Rate Blood Pressure 95/59 87/57 88/58 O2 Sat by Pulse 96 93 93 Oximetry 01/28/20 01/28/20 01/28/20 12:31 12:40 12:50 Temperature Pulse Rate 130 H 131 H 131 H Pulse Rate [ From Monitor] Respiratory 21 16 18 Rate Blood Pressure 102/54 93/59 98/67 O2 Sat by Pulse 92 90 Oximetry 01/28/20 01/28/20 01/28/20 13:01 13:11 13:21 Temperature Pulse Rate 123 H 124 H 126 H Pulse Rate [ From Monitor] Respiratory 24 31 H 34 H Rate Blood Pressure 110/15 88/49 109/60 O2 Sat by Pulse 99 85 86 Oximetry 01/28/20 01/28/20 01/28/20 13:31 13:41 13:51 Temperature Pulse Rate 126 H 126 H 126 H Pulse Rate [ From Monitor] Respiratory 29 H 38 H 16 Rate Blood Pressure 114/83 106/69 117/92 O2 Sat by Pulse 86 83 L 80 L Oximetry 01/28/20 01/28/20 01/28/20 14:01 14:05 14:10 Temperature Pulse Rate 124 H 120 H 123 H Pulse Rate [ From Monitor] Respiratory 24 22 Rate Blood Pressure 84/58 111/66 111/66 O2 Sat by Pulse 96 100 100 Oximetry 01/28/20 01/28/20 01/28/20 14:20 14:31 14:41 Temperature Pulse Rate 125 H 125 H 124 H Pulse Rate [ From Monitor] Respiratory 41 H 41 H 37 H Rate Blood Pressure 127/83 126/70 135/64 O2 Sat by Pulse 100 99 99 Oximetry 01/28/20 01/28/20 01/28/20 14:51 15:01 15:11 Temperature Pulse Rate 124 H 125 H 123 H Pulse Rate [ From Monitor] Respiratory 43 H 43 H 37 H Rate Blood Pressure 131/71 131/71 126/69 O2 Sat by Pulse 99 100 98 Oximetry 01/28/20 01/28/20 15:21 15:31 Temperature Pulse Rate 117 H 120 H Pulse Rate [ From Monitor] Respiratory 40 H 41 H Rate Blood Pressure 103/60 104/67 O2 Sat by Pulse 95 97 Oximetry - Labs CBC & Chem 7: 01/28/20 04:26 01/28/20 04:26 Labs: Abnormal lab results 01/27/20 01/27/20 01/28/20 Range/Units 17:31 23:40 00:00 Hgb (10.1-14.3) gm/dl Hct (30.3-42.9) % Plt Count (140-440) K/mm3 Heparin Anti-Xa Level 2.00 H (0.3-0.7) U.I./ml POC ABG pO2 (83-108) mmHg ABG Hemoglobin (12.0-17.5) Carbon Dioxide (22-30) mmol/L BUN (7-17) mg/dL Creatinine (0.6-1.2) mg/dL Glucose (65-100) mg/dL POC Glucose 133 H 136 H (70-105) Calcium (8.4-10.2) mg/dL 01/28/20 01/28/20 01/28/20 Range/Units 04:26 04:26 05:35 Hgb 9.6 L (10.1-14.3) gm/dl Hct 28.5 L (30.3-42.9) % Plt Count 508 H (140-440) K/mm3 Heparin Anti-Xa Level (0.3-0.7) U.I./ml POC ABG pO2 (83-108) mmHg ABG Hemoglobin (12.0-17.5) Carbon Dioxide 19 L (22-30) mmol/L BUN 20 H (7-17) mg/dL Creatinine 0.5 L (0.6-1.2) mg/dL Glucose 103 H (65-100) mg/dL POC Glucose 135 H (70-105) Calcium 7.9 L (8.4-10.2) mg/dL 01/28/20 01/28/20 01/28/20 Range/Units 08:50 11:10 11:51 Hgb (10.1-14.3) gm/dl Hct (30.3-42.9) % Plt Count (140-440) K/mm3 Heparin Anti-Xa Level 0.74 H (0.3-0.7) U.I./ml POC ABG pO2 67.2 L (83-108) mmHg ABG Hemoglobin 9.3 L (12.0-17.5) Carbon Dioxide (22-30) mmol/L BUN (7-17) mg/dL Creatinine (0.6-1.2) mg/dL Glucose (65-100) mg/dL POC Glucose 160 H (70-105) Calcium (8.4-10.2) mg/dL
[2020-01-28] MEDS: DONEPEZIL 10 MG TAB PO SCH (21:17)
[2020-01-28] MEDS: MIRTAZAPINE 15 MG TAB PO SCH (21:17)
[2020-01-28] MEDS: traZODone 50 MG TAB PO SCH (21:18)
[2020-01-29] MEDS: INSULIN REGULAR, HUMAN 100 UNIT/ML 3ML VIAL SUB-Q SCH ×4 (01:23→18:23)
[2020-01-29] MEDS: NORepinephrine/NS 4 MG-250 ML 4 MG/250 ML BAG IV SCH ×2 (02:25→13:30)
--- NOTE | 2020-01-29 04:24 | XRay Report ---
CHEST 1 VIEW 01/29/2020 2:22 AM INDICATION / CLINICAL INFORMATION: follow up respiratory failure. COMPARISON: 01/28/2020 FINDINGS: SUPPORT DEVICES: Endotracheal tube and left PICC line again project in expected position. PEG tube is again noted in the upper abdomen. HEART / MEDIASTINUM: No significant abnormality. LUNGS / PLEURA: Moderate airspace consolidation right lower lobe has improved somewhat since prior st udy. There is also mild patchy parenchymal disease left lower lobe. Tiny left pleural effusion has de creased in size. No pneumothorax. ADDITIONAL FINDINGS: Previously noted bilateral supraclavicular subcutaneous emphysema has resolved IMPRESSION: 1. Resolving bilateral lower lobe pneumonia and tiny parapneumonic left pleural effusion Signer Name: Wayne Car MD Signed: 01/29/2020 4:20 AM Workstation Name: [id number]
[2020-01-29 04:39] LABS: ABG Base Excess -2.9 mmol/L (-2.0-3.0); ABG HCO3 19.6 mmol/L (20.0-26.0); ABG Methemoglobin 0.6 % (0.0-1.5); ABG Oxygen Saturation 99.6 % (95.0-99.0); ABG PCO2 25.1 mm Hg; ABG PH 7.51 pH Units (7.350-7.450)
[2020-01-29 05:46] LABS: Hematocrit 25.6 % (30.3-42.9); Hemoglobin 8.6 gm/dl (10.1-14.3); Mean Corpuscular HGB Conc 34 % (30-34); Mean Corpuscular Volume 93 fl (79-97); Platelet Count 420 K/mm3 (140-440); Red Blood Count 2.75 M/mm3 (3.65-5.03); Red Cell Distribution Width 17.7 % (13.2-15.2)
[2020-01-29 06:13] LABS: Blood Urea Nitrogen 20 mg/dL (7-17); Calcium 8.1 mg/dL (8.4-10.2); Hemolysis Index 4
[2020-01-29 06:22] LABS: BUN/Creatinine Ratio 33
[2020-01-29 06:32] LABS: Anisocytosis Few; Basophils % (Manual) 0 % (0.0-1.8); Burr Cells Few; Eosinophils % (Manual) 0 % (0.0-4.3); Macrocytosis Few; Platelet Estimate Consistent w Auto; Schistocytes Few; Total Cells Counted 100
[2020-01-29] MEDS: PIPERACIL/TAZOBACTA 4.5/NS 100 4.5 GM/100 ML VIAL IV SCH ×3 (06:32→21:15)
[2020-01-29] MEDS: FUROSEMIDE 40 MG/4 ML INJ IV SCH (06:34)
--- NOTE | 2020-01-29 09:30 | Progress Note ---
Assessment and Plan Assessment and plan: -- s/p PEA cardiac arrest Noted Bradycardia with PEA arrest following intubation. Patient coded per ACLS protocol with ROSC -- Hydropneumothorax, not POA Patient developed hydropneumothorax on 01/15. Surgery consulted and patient had a chest tube placed on 01/15. Surgery following. s/p chest tube removed 01/22 --Acute respiratory failure, not POA likely from Hydropneumothorax, and recurrent left pleural effusion s/p chest tube - improved o2 saturation Now developed recurrent pleural effusion - ordered for thoracentesis, cont iv lasix patient intubated today -- large Left pleural effusion 01/25 Wait for thoracentesis, continue Lasix for now, stopped any IV fluid -- Hypernatremia, Resolved -- Sepsis, likely UTI and infected Sacral decubitus ulcer On zosyn now, cont to Monitor vital signs closely -- UTI (urinary tract infection) treated with abx -- Bilateral pulmonary embolism Had pulmonary embolism 7 months ago. CTA chest and LE doppler showed no acute PE or DVT eliquis now stopped --Sacral decubitus ulcer, infected This was present on admission Now status post wound debridement on 01/15. Wound vac in place Continue wound care ID consulted, cont zosyn 4.5 g IV every 8 hours total 6 weeks till 02/27/2020 on discharge. -- Uncontrolled diabetes mellitus DM management with SSI, TF -- Dementia Continue donepezil -- Moderate protein-calorie malnutrition She is not eating well and is getting feeds through the NG tube. Discussed with - this problem has been chronic agreed for PEG PEG placed 01/13. Now on tube feeds -- DVT prophylaxis heparin drip for PE treatment The high probability of a clinically significant, sudden or life threatening deterioration of the [Respiratory, BRUSH HAND, CVs] system(s) required my full and direct attention, intervention and personal management. The aggregate critical care time was [34] minutes. This time is in addition to time spent performing reported procedures but includes the following: [x] Data Review and interpretation [x] Patient assessment and monitoring of vital signs [x] Documentation [x] Medication orders and management Brief history: Patient is a 69-year-old -[place] female with known history of dementia, diabetes mellitus and pulmonary embolism was brought into the emergency room for decreased responsiveness, lethargy and hypotension. According to home health nurse patient has become less active and blood pressure was said to be low. She was brought to the emergency room for evaluation. Further history cannot be obtained from patient. Upon arrival in the emergency room patient had a low-grade fever. Work-up in the emergency room reveals elevated white blood cell count of 13.5, elevated BUN and creatinine 30 and 1.1 respectively. Found to be dehydrated and hypernatremic. Urinalysis shows UTI. Patient subsequently started on IV fluid and empiric IV antibiotics admitted for further evaluation. History Interval history: I have seen and examined the patient at the bedside Patient's chart and medications reviewed Patient remains intubated on ventilatory support Chronically ill looking Vital signs noted Hospitalist Physical - Constitutional Vitals: Temp Pulse Resp BP Pulse Ox 96.6 F L 92 H 18 93/56 100 01/29/20 04:00 01/29/20 09:00 01/29/20 09:00 01/29/20 09:00 01/29/20 09:00 General appearance: Present: no acute distress, well-nourished, other (Intubated on vent) - EENT ENT: other (ET tube and Dobbhoff in place) - Neck Neck: Present: supple, normal ROM - Respiratory Respiratory effort: normal Respiratory: bilateral: diminished, rhonchi, negative: rales, wheezing - Cardiovascular Heart Sounds: Present: S1 & S2 - Extremities Extremities: no ischemia, No edema - Abdominal General gastrointestinal: soft, non-tender, non-distended, normal bowel sounds - Integumentary Integumentary: Present: clear, warm - Psychiatric Psychiatric: other (Intubated on vent) - Neurologic Neurologic: other (Noncommunicative) Results - Labs CBC & Chem 7: 01/30/20 04:00 01/29/20 04:58 Labs: Laboratory Last Values WBC 13.1 K/mm3 (4.5-11.0) H 01/29/20 04:58 RBC 2.75 M/mm3 (3.65-5.03) L 01/29/20 04:58 Hgb 8.6 gm/dl (10.1-14.3) L 01/29/20 04:58 Hct 25.6 % (30.3-42.9) L 01/29/20 04:58 MCV 93 fl (79-97) 01/29/20 04:58 MCH 31 pg (28-32) 01/29/20 04:58 MCHC 34 % (30-34) 01/29/20 04:58 RDW 17.7 % (13.2-15.2) H 01/29/20 04:58 Plt Count 420 K/mm3 (140-440) 01/29/20 04:58 Lymph % (Auto) 12.7 % (13.4-35.0) L 01/27/20 06:30 [place] % (Auto) 3.9 % (0.0-7.3) 01/27/20 06:30 Eos % (Auto) 0.1 % (0.0-4.3) 01/27/20 06:30 Baso % (Auto) 0.1 % (0.0-1.8) 01/27/20 06:30 Lymph # 1.3 K/mm3 (1.2-5.4) 01/27/20 06:30 [place] # 0.4 K/mm3 (0.0-0.8) 01/27/20 06:30 Eos # 0.0 K/mm3 (0.0-0.4) 01/27/20 06:30 Baso # 0.0 K/mm3 (0.0-0.1) 01/27/20 06:30 Add Manual Diff Complete 01/29/20 04:58 Total Counted 100 01/29/20 04:58 Seg Neutrophils % Compressor Station Chief Engineer 01/29/20 04:58 Seg Neutrophils # 8.4 K/mm3 (1.8-7.7) H 01/27/20 06:30 Seg Neuts % (Manual) 91.0 % (40.0-70.0) H 01/29/20 04:58 Band Neutrophils % 0 % 01/29/20 04:58 Lymphocytes % (Manual) 6.0 % (13.4-35.0) L 01/29/20 04:58 Reactive Lymphs % (Man) 0 % 01/29/20 04:58 Monocytes % (Manual) 3.0 % (0.0-7.3) 01/29/20 04:58 Eosinophils % (Manual) 0 % (0.0-4.3) 01/29/20 04:58 Basophils % (Manual) 0 % (0.0-1.8) 01/29/20 04:58 Metamyelocytes % 0 % 01/29/20 04:58 Myelocytes % 0 % 01/29/20 04:58 Promyelocytes % 0 % 01/29/20 04:58 Blast Cells % 0 % 01/29/20 04:58 Nucleated RBC % 1.0 % (0.0-0.9) H 01/29/20 04:58 Seg Neutrophils # Man 11.9 K/mm3 (1.8-7.7) H 01/29/20 04:58 Band Neutrophils # 0.0 K/mm3 01/29/20 04:58 Lymphocytes # (Manual) 0.8 K/mm3 (1.2-5.4) L 01/29/20 04:58 Abs React Lymphs (Man) 0.0 K/mm3 01/29/20 04:58 Monocytes # (Manual) 0.4 K/mm3 (0.0-0.8) 01/29/20 04:58 Eosinophils # (Manual) 0.0 K/mm3 (0.0-0.4) 01/29/20 04:58 Basophils # (Manual) 0.0 K/mm3 (0.0-0.1) 01/29/20 04:58 Metamyelocytes # 0.0 K/mm3 01/29/20 04:58 Myelocytes # 0.0 K/mm3 01/29/20 04:58 Promyelocytes # 0.0 K/mm3 01/29/20 04:58 Blast Cells # 0.0 K/mm3 01/29/20 04:58 WBC Morphology Not Reportable 01/29/20 04:58 Hypersegmented Neuts Not Reportable 01/29/20 04:58 Hyposegmented Neuts Not Reportable 01/29/20 04:58 Hypogranular Neuts Not Reportable 01/29/20 04:58 Smudge Cells Not Reportable 01/29/20 04:58 Toxic Granulation Not Reportable 01/29/20 04:58 Toxic Vacuolation Not Reportable 01/29/20 04:58 Dohle Bodies Not Reportable 01/29/20 04:58 Pelger-Huet Anomaly Not Reportable 01/29/20 04:58 Lata Rods Not Reportable 01/29/20 04:58 Platelet Estimate Consistent w auto 01/29/20 04:58 Clumped Platelets Not Reportable 01/29/20 04:58 Plt Clumps, EDTA Not Reportable 01/29/20 04:58 Large Platelets Not Reportable 01/29/20 04:58 Giant Platelets Not Reportable 01/29/20 04:58 Platelet Satelliting Not Reportable 01/29/20 04:58 Plt Morphology Comment Not Reportable 01/29/20 04:58 RBC Morphology Not Reportable 01/29/20 04:58 Dimorphic RBCs Not Reportable 01/29/20 04:58 Polychromasia Not Reportable 01/29/20 04:58 Hypochromasia Not Reportable 01/29/20 04:58 Poikilocytosis Not Reportable 01/29/20 04:58 Anisocytosis Few 01/29/20 04:58 Microcytosis Not Reportable 01/29/20 04:58 Macrocytosis Few 01/29/20 04:58 Spherocytes Not Reportable 01/29/20 04:58 Pappenheimer Bodies Not Reportable 01/29/20 04:58 Sickle Cells Not Reportable 01/29/20 04:58 Target Cells Not Reportable 01/29/20 04:58 Tear Drop Cells Not Reportable 01/29/20 04:58 Ovalocytes Not Reportable 01/29/20 04:58 Helmet Cells Not Reportable 01/29/20 04:58 Lombardi-Edwards Bodies Not Reportable 01/29/20 04:58 [place] Rings Not Reportable 01/29/20 04:58 [place] Cells Few 01/29/20 04:58 Bite Cells Not Reportable 01/29/20 04:58 Crenated Cell Not Reportable 01/29/20 04:58 Elliptocytes Not Reportable 01/29/20 04:58 Acanthocytes (Spur) Not Reportable 01/29/20 04:58 Rouleaux Not Reportable 01/29/20 04:58 Hemoglobin C Crystals Not Reportable 01/29/20 04:58 Schistocytes Few 01/29/20 04:58 Malaria parasites Not Reportable 01/29/20 04:58 Gideon Bodies Not Reportable 01/29/20 04:58 Hem Pathologist Commnt No 01/29/20 04:58 PT 18.4 Sec. (12.2-14.9) H 01/26/20 16:30 INR 1.50 (0.87-1.13) H 01/26/20 16:30 APTT 33.9 Sec. (24.2-36.6) 01/26/20 16:30 Heparin Anti-Xa Level 0.74 U.I./ml (0.3-0.7) H 01/28/20 08:50 ABG pH 7.510 pH Units (7.350-7.450) H 01/29/20 03:52 POC ABG pCO2 32.9 mmHg (32.0-48.0) 01/28/20 11:10 ABG pCO2 25.1 mm Hg 01/29/20 03:52 ABG Oxyhemoglobin 84.7 (94-98) L 01/26/20 21:32 POC ABG pO2 67.2 mmHg (83-108) L 01/28/20 11:10 ABG pO2 357.0 mm Hg (80.0-90.0) H 01/29/20 03:52 POC ABG HCO3 21.2 01/28/20 11:10 ABG HCO3 19.6 mmol/L (20.0-26.0) L 01/29/20 03:52 ABG O2 Saturation 99.6 % (95.0-99.0) H 01/29/20 03:52 ABG O2 Content 11.1 (0.0-44) 01/29/20 03:52 POC ABG Base Excess -2.6 01/28/20 11:10 ABG Base Excess -2.9 mmol/L (-2.0-3.0) L 01/29/20 03:52 ABG Hemoglobin 7.3 gm/dl (12.0-16.0) L 01/29/20 03:52 ABG Carboxyhemoglobin 1.2 % (0.0-5.0) 01/29/20 03:52 ABG Methemoglobin 0.6 % (0.0-1.5) 01/29/20 03:52 Carboxyhemoglobin 1.0 (0.5-1.5) 01/26/20 21:32 Oxyhemoglobin 97.7 % (95.0-99.0) 01/29/20 03:52 FiO2 90 % 01/29/20 03:52 Sodium 148 mmol/L (137-145) H 01/29/20 04:58 Potassium 3.5 mmol/L (3.6-5.0) L D 01/29/20 04:58 Chloride 113.2 mmol/L (98-107) H 01/29/20 04:58 Carbon Dioxide 21 mmol/L (22-30) L 01/29/20 04:58 Anion Gap 17 mmol/L 01/29/20 04:58 BUN 20 mg/dL (7-17) H 01/29/20 04:58 Creatinine 0.6 mg/dL (0.6-1.2) 01/29/20 04:58 Estimated GFR > 60 ml/min 01/29/20 04:58 BUN/Creatinine Ratio 33 % 01/29/20 04:58 Glucose 137 mg/dL (65-100) H 01/29/20 04:58 POC Glucose 167 (70-105) H 01/29/20 06:01 Hemoglobin A1c 5.3 % (4-6) 01/11/20 00:45 Lactic Acid 1.30 mmol/L (0.7-2.0) 01/26/20 23:27 Phosphorus 2.80 mg/dL (2.5-4.5) 01/26/20 23:27 Magnesium 2.00 mg/dL (1.7-2.3) 01/26/20 23:27 Calcium 8.1 mg/dL (8.4-10.2) L 01/29/20 04:58 Total Bilirubin 0.30 mg/dL (0.1-1.2) 01/23/20 06:10 AST 16 units/L (5-40) 01/23/20 06:10 ALT 12 units/L (7-56) 01/23/20 06:10 Alkaline Phosphatase 52 units/L (35-129) 01/23/20 06:10 Total Protein 4.9 g/dL (6.3-8.2) L D 01/23/20 06:10 Albumin 2.0 g/dL (3.9-5) L 01/23/20 06:10 Albumin/Globulin Ratio 0.7 % 01/23/20 06:10 TSH 2.440 mlU/mL (0.270-4.200) 01/10/20 10:10 Procalcitonin < 0.05 ng/mL (<0.15) 01/26/20 23:27 Urine Color Cordelia (Yellow) 01/08/20 Unknown Urine Turbidity Cloudy (Clear) 01/08/20 Unknown Urine pH 5.0 (5.0-7.0) 01/08/20 Unknown Ur Specific [place] 1.018 (1.003-1.030) 01/08/20 Unknown Urine Protein 30 mg/dl mg/dL (Negative) 01/08/20 Unknown Urine Glucose (UA) Neg mg/dL (Negative) 01/08/20 Unknown Urine Ketones Neg mg/dL (Negative) 01/08/20 Unknown Urine Blood Mod (Negative) 01/08/20 Unknown Urine Nitrite Neg (Negative) 01/08/20 Unknown Urine Bilirubin Neg (Negative) 01/08/20 Unknown Urine Urobilinogen < 2.0 mg/dL (<2.0) 01/08/20 Unknown Ur Leukocyte Esterase Sm (Negative) 01/08/20 Unknown Urine WBC (Auto) 11.0 /HPF (0.0-6.0) H 01/08/20 Unknown Urine RBC (Auto) 7.0 /HPF (0.0-6.0) 01/08/20 Unknown U Epithel Cells (Auto) < 1.0 /HPF (0-13.0) 01/08/20 Unknown Urine Bacteria (Auto) 1+ /HPF (Negative) 01/08/20 Unknown Urine Mucus 2+ /HPF 01/08/20 Unknown Urine Yeast (Budding) 1+ /HPF 01/08/20 Unknown Vancomycin Trough 7.9 ug/mL (5.0-20.0) 01/17/20 16:04 Microbiology: Microbiology 01/28/20 10:45 Bronchial Washings - Left Lower Lobe Respiratory Culture - Preliminary Mejía/IV: Voiding Method External Female Catheter IV Catheter Type [Left Upper PICC Line arm] IV Catheter Type [Right Upper INT / Saline Lock arm] IV Catheter Type [Right Peripheral IV Forearm] Active Medications - Current Medications Current Medications: Generic Name Dose Route Start Last Admin Trade Name Freq PRN Reason Stop Dose Admin Acetaminophen 650 mg 01/08/20 23:14 01/18/20 06:03 Tylenol PO 650 mg Q4H PRN Administration Pain MILD(1-3)/Fever >100.5/GARCIA Lipase/Protease/Amylase 1 each 01/17/20 08:[address] 10,500 Unit FEEDTUBE PRN PRN For Clogged Feeding Tube Atorvastatin Calcium 10 mg 01/09/20 22:00 01/28/20 21:21 Atorvastatin PO 10 mg QHS BRO Administration Dextrose 0 ml 01/08/20 23:14 01/26/20 17:44 D50w (25gm) Syringe IV 25 ml Q30MIN PRN Administration Hypoglycemia Protocol Donepezil HCl 10 mg 01/09/20 22:00 01/28/20 21:17 Aricept PO 10 mg QHS BRO Administration Famotidine 20 mg 01/27/20 10:00 01/28/20 21:17 Pepcid PO 20 mg BID BRO Administration Fentanyl 50 mcg 01/28/20 10:57 Sublimaze IV Q10MIN PRN ANALGESIA Fluticasone Propionate 100 mcg 01/25/20 20:00 01/26/20 06:09 Flonase NS 100 mcg QDAY PRN Administration Nasal Congestion Furosemide 40 mg 01/29/20 06:00 01/29/20 06:34 Lasix IV 40 mg 0600,1800 BOR Administration Heparin Sodium (Porcine) 5,000 unit 01/28/20 10:00 01/28/20 21:18 Heparin SUB-Q 5,000 unit Q12HR BRO Administration Hydrophilic Ointment 1 applic 01/28/20 10:57 Vaseline Lip Therapy TP Q2HR PRN Dry Lips Piperacillin Sod/Tazobactam Sod 4.5 gm in 100 mls @ 200 mls/hr 01/19/20 14:00 01/29/20 06:32 Zosyn/Ns 4.5gm/100ml IV 02/27/20 22:29 200 mls/hr Q8HR BRO Administration Protocol Norepinephrine 4 mg in 250 mls @ 7.5 mls/hr 01/26/20 20:00 01/29/20 02:31 Levophed Drip 4 Mg/Ns 250 Ml IV 6 mcg/min TITR BRO 22.5 mls/hr Titration Protocol 2 MCG/MIN Fentanyl Citrate 2,000 mcg in 100 mls @ 1.603 mls/hr 01/28/20 11:00 Fentanyl Drip Premix IV TITR BRO Protocol 0.5 MCG/KG/HR Insulin Human Regular 0 unit 01/27/20 12:00 01/29/20 07:43 Humulin R SUB-Q 1 unit Q6HR BRO Administration Protocol Magnesium Hydroxide 30 ml 01/08/20 23:14 Milk Of Magnesia PO Q4H PRN Constipation Megestrol Acetate 400 mg 01/12/20 11:00 01/28/20 15:44 Megestrol PO Not Given QDAY BRO Mirtazapine 15 mg 01/09/20 22:00 01/28/20 21:17 Remeron PO 15 mg QHS BRO Administration Multi-Ingred Cream/Lotion/Oil/Oint 1 applic 01/28/20 10:57 Artificial Tears Ophth Oint OU Q4HR PRN Dry Eye(s) Ondansetron HCl 4 mg 01/08/20 23:14 Zofran IV Q8H PRN Nausea And Vomiting Potassium Chloride 40 meq 01/29/20 10:00 Potassium Chloride FEEDTUBE 01/29/20 10:01 ONCE ONE Simple Syrup 15 ml 01/17/20 08:37 Simple Syrup FEEDTUBE PRN PRN Hypoglycemia Simple Syrup 30 ml 01/17/20 08:37 Simple Syrup FEEDTUBE PRN PRN Hypoglycemia Sodium Bicarbonate 325 mg 01/17/20 08:37 Sodium Bicarbonate FEEDTUBE PRN PRN For Clogged Feeding Tube Sodium Chloride 10 ml 01/09/20 10:00 01/28/20 21:18 Sodium Chloride Flush Syringe 10 Ml IV 10 ml BID BRO Administration Sodium Chloride 10 ml 01/08/20 23:14 Sodium Chloride Flush Syringe 10 Ml IV PRN PRN LINE FLUSH Trazodone HCl 25 mg 01/09/20 22:00 01/28/20 21:18 Desyrel PO 25 mg QHS BRO Administration Nutrition/Malnutrition Assess - Dietary Evaluation Nutrition/Malnutrition Findings: Nutrition Notes Start: 01/09/20 12:13 Freq: Status: Active Protocol: Document 01/28/20 13:51 [email or web address] (Rec: 01/28/20 14:18 [email or web address]) Co-Sign 01/28/20 13:51 LP Nutrition Notes Need for Assessment generated from: MD Order Initial or Follow up Reassessment Current Diagnosis Decubitus(Pressure Ulcer), Diabetes,Sepsis Other Pertinent Diagnosis UTI, dementia, PE, Sacral wound Current Diet Bolus Jevity 5 cans/day Labs/Tests Reviewed Pertinent Medications Levophed Height 5 ft 2 in Weight 64.1 kg [place] Body Weight (kg) 50.00 BMI 25.8 Subjective/Other Information MD consult for evaluate nutrional intake. Per MD, change TF. Percent of energy/protein needs met: 91%/100% Burn Absent Trauma Absent Current % PO Negligible Minimum of two criteria Yes Fluid Accumulation Mild (non-severe) Reduced Diabetic Educator Strength Measurably Reduced (severe) #3 Nutrition Diagnosis Malnutrition Diagnosis Progress(for reassessment Continues documentation) #2 Nutrition Diagnosis Inadequate oral intake Diagnosis Progress(for reassessment Continues documentation) #1 Nutrition Diagnosis Increased nutrient needs ( specify in comment below) Diagnosis Progress(for reassessment Continues documentation) Is patient on ventilator? Yes Is Patient Ambulatory and/or Out of Bed No REE-([place]-confined to bed) 1343.052 Kcal/Kg value to use for calculation 24 Approximate Energy Requirements Using 1538 kcal/Kg Calculation Used for Recommendations Kcal/kg Additional Notes Protein needs 77-128g(1.2-2g/ kg) Fluid needs 1ml/kcal Nutrition Intervention Change Diet Order: Change to Vital AF 1.2 Nutrition Support: Vital AF 1.2 at 50ml/hr Flush 80ml q4h Kcal 1,440 Protein (gm) 90 Fluid (mL) 973 Goal #1 Meet at least 80% of kcal and protein needs via TF Goal #2 TF tolerance Goal #3 Wound Healing Anticipated Discharge Needs: Undetermined at this time Follow-Up By: 01/30/20 Additional Comments F/U TF tolerance
[2020-01-29] MEDS ORDERED: POTASSIUM CHLORIDE 20 MEQ PACKET FEEDTUBE ONE (10:00)
[2020-01-29] MEDS: HEPARIN 5,000 UNIT/1 ML VIAL SUB-Q SCH ×2 (10:21→21:16)
[2020-01-29] MEDS: MEGESTROL 400 MG/10 ML ORAL LIQD PO SCH (10:21)
--- NOTE | 2020-01-29 12:28 | Progress Note ---
Assessment and Plan Severe sepsis with shock. Left lung atelectasis. Left pleural effusion. Acute hypoxemic respiratory failure. Acute possibly on chronic encephalopathy. History of diabetes. Urinary tract infection. History of pulmonary embolism, diagnosed several months ago. Sacral decubitus ulcer. Dementia. Anemia that is normocytic. (AMS is a rate limiting factor to safe extubation at this point) - add stress dose steroids - get procalcitonin and trend as necessary to aid clinical decision making while on systemic steroids - follow BAL studies - reduce set TV to 350 ml's re: alkalosis - repeat ABG at 9pm - increased free water to 200 mls q4h - continue care as below otherwise; - Daily SAT and SBT assessment as tolerated - continue to wean supplemental oxygen for target O2 sat's > 92% acutely - VAP bundle addressed - continue lung protective strategies - continue bronchodilators with pulmonary hygiene per RT - wean per pulmonary driven protocols otherwise - continue accuchecks with glycemic control per SSI (While critically ill target blood glucose of 140-180 mg/dL; avoid hypoglycemia) - sedation prn for target RASS 0 to -1 - avoid nephrotoxins, renally dose all medications - continue to avoid benzodiazepine's, reduce the possibility of delirium - complete AB's per ID rec's - prn analgesia per CPOT score - Maintenance of sleep-wake cycle, avoid delirium - continue enteral nutritional support at goal rate as tolerated - G.I. & VTE prophylaxis with famotidine and heparin - PT/OT/ROM exercises - continue mobility protocols for pressure ulcer prophylaxis - Monitor hemodynamics closely - continue other care per attending / other consultants - discharge planning ongoing concurrently .... Re-evaluate in am & prn CONDITION: CRITICAL PROGNOSIS: GUARDED CODE STATUS: FULL CODE The high probability of a clinically significant, sudden or life-threatening deterioration of the [respiratory, cardiovascular & neurologic] system(s) required my full and direct attention, intervention and personal management. The aggregate critical care time was [35] minutes without overlap. Time includes spent on; [x] Data Review and interpretation [x] Patient assessment and monitoring of vital signs [x] Documentation [x] Medication orders and management Subjective Date of service: 01/29/20 Principal diagnosis: Septic Shock; S/P Cardiac Arrest; Ac. hypoxemic resp failure; UTI Interval history: Patient is seen today for: Severe sepsis with shock; S/P Cardiac Arrest; L. lung atelectasis / L. pleural effusion; Acute hypoxemic respiratory failure; Acute possibly on chronic encephalopathy; DM II; UTI; VTE Seen and examined at bedside; 24hour events reviewed; nursing and respiratory care staff consulted; no adverse overnight events reported to me; resting peacefully in bed; BP remains labile and remains on Levophed @ 4 kayley's/min; opens eyes sponteneously but not following prompts; remains on MVS; no emesis or overt aspiration; hypothermic Objective Vital Signs - 12hr 01/29/20 01/29/20 01/29/20 00:30 00:46 01:00 Temperature Pulse Rate 102 H 104 H 102 H Pulse Rate [ From Monitor] Respiratory 17 26 H 27 H Rate Blood Pressure 99/62 102/65 104/61 O2 Sat by Pulse 100 100 100 Oximetry 01/29/20 01/29/20 01/29/20 01:16 01:30 01:45 Temperature Pulse Rate 94 H 99 H 97 H Pulse Rate [ From Monitor] Respiratory 27 H 27 H 27 H Rate Blood Pressure 112/55 103/51 103/56 O2 Sat by Pulse 100 100 100 Oximetry 01/29/20 01/29/20 01/29/20 02:00 02:16 02:30 Temperature Pulse Rate 103 H 103 H 101 H Pulse Rate [ From Monitor] Respiratory 23 28 H 21 Rate Blood Pressure 106/60 101/63 98/73 O2 Sat by Pulse 100 100 100 Oximetry 01/29/20 01/29/20 01/29/20 02:46 03:00 03:16 Temperature Pulse Rate 93 H 97 H 88 Pulse Rate [ From Monitor] Respiratory 19 26 H 26 H Rate Blood Pressure 101/50 103/62 110/57 O2 Sat by Pulse 100 100 100 Oximetry 01/29/20 01/29/20 01/29/20 03:30 03:46 04:00 Temperature 96.6 F L Pulse Rate 94 H 103 H 95 H Pulse Rate [ 95 H From Monitor] Respiratory 19 25 H 21 Rate Blood Pressure 109/59 115/55 205/174 O2 Sat by Pulse 100 100 100 Oximetry 01/29/20 01/29/20 01/29/20 04:16 04:30 04:34 Temperature Pulse Rate 96 H 96 H 99 H Pulse Rate [ From Monitor] Respiratory 19 19 Rate Blood Pressure 92/59 90/60 90/60 O2 Sat by Pulse 100 100 100 Oximetry 01/29/20 01/29/20 01/29/20 04:46 05:00 05:16 Temperature Pulse Rate 99 H 98 H 96 H Pulse Rate [ From Monitor] Respiratory 18 18 24 Rate Blood Pressure 103/55 93/45 93/45 O2 Sat by Pulse 100 100 100 Oximetry 01/29/20 01/29/20 01/29/20 05:30 05:46 06:00 Temperature Pulse Rate 95 H 96 H 96 H Pulse Rate [ From Monitor] Respiratory 21 18 18 Rate Blood Pressure 89/54 105/62 104/63 O2 Sat by Pulse 100 100 100 Oximetry 01/29/20 01/29/20 01/29/20 06:16 06:30 06:46 Temperature Pulse Rate 98 H 97 H 106 H Pulse Rate [ From Monitor] Respiratory 18 18 15 Rate Blood Pressure 110/57 108/60 113/65 O2 Sat by Pulse 100 100 100 Oximetry 01/29/20 01/29/20 01/29/20 07:00 07:16 07:30 Temperature Pulse Rate 98 H 91 H 86 Pulse Rate [ From Monitor] Respiratory 19 19 22 Rate Blood Pressure 90/49 149/118 94/51 O2 Sat by Pulse 100 100 100 Oximetry 01/29/20 01/29/20 01/29/20 07:43 07:46 08:00 Temperature Pulse Rate 98 H 102 H 94 H Pulse Rate [ 95 H From Monitor] Respiratory 14 22 Rate Blood Pressure 87/54 89/56 105/54 O2 Sat by Pulse 100 100 100 Oximetry 01/29/20 01/29/20 01/29/20 08:16 08:30 08:46 Temperature Pulse Rate 96 H 93 H 94 H Pulse Rate [ From Monitor] Respiratory 23 22 26 H Rate Blood Pressure 105/54 80/53 94/58 O2 Sat by Pulse 100 100 100 Oximetry 01/29/20 01/29/20 01/29/20 09:00 09:16 09:30 Temperature Pulse Rate 92 H 78 91 H Pulse Rate [ From Monitor] Respiratory 18 19 19 Rate Blood Pressure 93/56 100/49 97/55 O2 Sat by Pulse 100 100 100 Oximetry 01/29/20 01/29/20 01/29/20 09:46 10:00 10:16 Temperature Pulse Rate 92 H 93 H 86 Pulse Rate [ From Monitor] Respiratory 20 18 18 Rate Blood Pressure 92/56 92/54 93/55 O2 Sat by Pulse 100 100 100 Oximetry 01/29/20 01/29/20 01/29/20 10:30 10:46 11:00 Temperature Pulse Rate 102 H 91 H 98 H Pulse Rate [ From Monitor] Respiratory 17 18 19 Rate Blood Pressure 86/59 95/49 90/45 O2 Sat by Pulse 100 100 100 Oximetry 01/29/20 12:01 Temperature Pulse Rate 90 Pulse Rate [ From Monitor] Respiratory Rate Blood Pressure 65/44 O2 Sat by Pulse 100 Oximetry Constitutional: no acute distress, other (elderly looking female witrh mildly increased respiratory effort at rest on MVS) Eyes: non-icteric ENT: oropharynx moist, other (ETT 23 cm FLORENCIO) Neck: supple, no lymphadenopathy, no JVD Effort: mildly labored Ascultation: Bilateral: diminished breath sounds (bases L>R), rales (bases predominant) Percussion: Bilateral: not dull Cardiovascular: regular rate and rhythm Gastrointestinal: normoactive bowel sounds, soft, non-tender, non-distended Integumentary: decubitus ulcer (see [facility] notes) Extremities: no cyanosis, no edema, pulses normal Neurologic: pupils equal and round, unable to assess Psychiatric: other (Unable to assess re: AMS) CBC and BMP: 01/29/20 04:58 01/29/20 04:58 ABG, PT/INR, D-dimer: ABG ABG pH 7.510 pH Units (7.350-7.450) H 01/29/20 03:52 POC ABG pCO2 32.9 mmHg (32.0-48.0) 01/28/20 11:10 ABG pCO2 25.1 mm Hg 01/29/20 03:52 POC ABG pO2 67.2 mmHg (83-108) L 01/28/20 11:10 ABG pO2 357.0 mm Hg (80.0-90.0) H 01/29/20 03:52 POC ABG HCO3 21.2 01/28/20 11:10 ABG O2 Saturation 99.6 % (95.0-99.0) H 01/29/20 03:52 PT/INR, D-dimer PT 18.4 Sec. (12.2-14.9) H 01/26/20 16:30 INR 1.50 (0.87-1.13) H 01/26/20 16:30 Abnormal lab findings: Abnormal Labs 01/08/20 01/08/20 01/08/20 16:29 16:29 16:29 WBC 13.5 H RBC Hgb Hct MCHC RDW 15.5 H Plt Count Lymph % (Auto) Lymph # Seg Neutrophils % Seg Neuts % (Manual) 85.0 H Lymphocytes % (Manual) 11.0 L Seg Neutrophils # Seg Neutrophils # Man 11.5 H Nucleated RBC % Lymphocytes # (Manual) PT INR Heparin Anti-Xa Level POC ABG pO2 ABG pH ABG Hemoglobin ABG Oxyhemoglobin ABG pO2 ABG HCO3 ABG O2 Saturation ABG Base Excess Sodium 161 H* Potassium Chloride 125.5 H Carbon Dioxide 20 L BUN 30 H Creatinine Glucose 115 H POC Glucose Lactic Acid 2.20 H* Calcium 7.9 L AST 48 H Total Protein Albumin 2.5 L Urine WBC (Auto) 01/08/20 01/08/20 01/08/20 19:02 23:30 Unknown WBC RBC Hgb Hct MCHC RDW Plt Count Lymph % (Auto) Lymph # Seg Neutrophils % Seg Neuts % (Manual) Lymphocytes % (Manual) Seg Neutrophils # Seg Neutrophils # Man Nucleated RBC % Lymphocytes # (Manual) PT INR Heparin Anti-Xa Level POC ABG pO2 ABG pH ABG Hemoglobin ABG Oxyhemoglobin ABG pO2 ABG HCO3 ABG O2 Saturation ABG Base Excess Sodium Potassium Chloride Carbon Dioxide BUN Creatinine Glucose POC Glucose Lactic Acid 2.10 H* 2.50 H* Calcium AST Total Protein Albumin Urine WBC (Auto) 11.0 H 01/09/20 01/09/20 01/09/20 00:19 00:54 05:52 WBC 13.5 H RBC 3.02 L Hgb 9.0 L D Hct 27.4 L D MCHC RDW Plt Count Lymph % (Auto) 9.1 L Lymph # Seg Neutrophils % 87.6 H Seg Neuts % (Manual) Lymphocytes % (Manual) Seg Neutrophils # 11.8 H Seg Neutrophils # Man Nucleated RBC % Lymphocytes # (Manual) PT INR Heparin Anti-Xa Level POC ABG pO2 ABG pH ABG Hemoglobin ABG Oxyhemoglobin ABG pO2 ABG HCO3 ABG O2 Saturation ABG Base Excess Sodium Potassium Chloride Carbon Dioxide BUN Creatinine Glucose POC Glucose 118 H 116 H Lactic Acid Calcium AST Total Protein Albumin Urine WBC (Auto) 01/09/20 01/09/20 01/09/20 05:52 05:52 13:03 WBC RBC Hgb Hct MCHC RDW Plt Count Lymph % (Auto) Lymph # Seg Neutrophils % Seg Neuts % (Manual) Lymphocytes % (Manual) Seg Neutrophils # Seg Neutrophils # Man Nucleated RBC % Lymphocytes # (Manual) PT 17.1 H INR 1.36 H Heparin Anti-Xa Level POC ABG pO2 ABG pH ABG Hemoglobin ABG Oxyhemoglobin ABG pO2 ABG HCO3 ABG O2 Saturation ABG Base Excess Sodium 162 H* Potassium 3.0 L D Chloride 128.3 H Carbon Dioxide BUN 23 H Creatinine Glucose POC Glucose 55 L Lactic Acid Calcium 7.6 L AST Total Protein Albumin Urine WBC (Auto) 01/09/20 01/09/20 01/09/20 21:22 21:50 22:28 WBC RBC Hgb Hct MCHC RDW Plt Count Lymph % (Auto) Lymph # Seg Neutrophils % Seg Neuts % (Manual) Lymphocytes % (Manual) Seg Neutrophils # Seg Neutrophils # Man Nucleated RBC % Lymphocytes # (Manual) PT INR Heparin Anti-Xa Level POC ABG pO2 ABG pH ABG Hemoglobin ABG Oxyhemoglobin ABG pO2 ABG HCO3 ABG O2 Saturation ABG Base Excess Sodium 159 H Potassium 5.1 H D Chloride 128.5 H Carbon Dioxide 16 L BUN 23 H Creatinine Glucose 51 L POC Glucose 52 L 106 H Lactic Acid Calcium 8.2 L AST Total Protein Albumin Urine WBC (Auto) 01/10/20 01/10/20 01/10/20 05:23 09:11 10:10 WBC 13.4 H RBC Hgb Hct MCHC RDW Plt Count Lymph % (Auto) 7.2 L Lymph # 1.0 L Seg Neutrophils % 90.0 H Seg Neuts % (Manual) Lymphocytes % (Manual) Seg Neutrophils # 12.0 H Seg Neutrophils # Man Nucleated RBC % Lymphocytes # (Manual) PT INR Heparin Anti-Xa Level POC ABG pO2 ABG pH ABG Hemoglobin ABG Oxyhemoglobin ABG pO2 ABG HCO3 ABG O2 Saturation ABG Base Excess Sodium 155 H Potassium Chloride 122.8 H Carbon Dioxide 21 L BUN 19 H Creatinine Glucose POC Glucose 120 H Lactic Acid Calcium AST Total Protein Albumin Urine WBC (Auto) 01/10/20 01/10/20 01/10/20 11:47 11:57 17:09 WBC RBC Hgb Hct MCHC RDW Plt Count Lymph % (Auto) Lymph # Seg Neutrophils % Seg Neuts % (Manual) Lymphocytes % (Manual) Seg Neutrophils # Seg Neutrophils # Man Nucleated RBC % Lymphocytes # (Manual) PT INR Heparin Anti-Xa Level POC ABG pO2 ABG pH ABG Hemoglobin ABG Oxyhemoglobin ABG pO2 ABG HCO3 ABG O2 Saturation ABG Base Excess Sodium 153 H Potassium Chloride 118.3 H Carbon Dioxide 20 L BUN 19 H Creatinine Glucose 113 H POC Glucose 142 H 125 H Lactic Acid Calcium AST Total Protein Albumin Urine WBC (Auto) 01/10/20 01/10/20 01/11/20 20:27 22:00 00:45 WBC RBC Hgb Hct MCHC RDW Plt Count Lymph % (Auto) Lymph # Seg Neutrophils % Seg Neuts % (Manual) Lymphocytes % (Manual) Seg Neutrophils # Seg Neutrophils # Man Nucleated RBC % Lymphocytes # (Manual) PT INR Heparin Anti-Xa Level POC ABG pO2 ABG pH ABG Hemoglobin ABG Oxyhemoglobin ABG pO2 ABG HCO3 ABG O2 Saturation ABG Base Excess Sodium 153 H 154 H Potassium 3.3 L 3.2 L Chloride 117.0 H 118.9 H Carbon Dioxide 20 L BUN Creatinine Glucose POC Glucose 136 H Lactic Acid Calcium 8.3 L 8.0 L AST Total Protein Albumin Urine WBC (Auto) 01/11/20 01/11/20 01/11/20 07:06 08:03 11:54 WBC RBC Hgb Hct MCHC RDW Plt Count Lymph % (Auto) Lymph # Seg Neutrophils % Seg Neuts % (Manual) Lymphocytes % (Manual) Seg Neutrophils # Seg Neutrophils # Man Nucleated RBC % Lymphocytes # (Manual) PT INR Heparin Anti-Xa Level POC ABG pO2 ABG pH ABG Hemoglobin ABG Oxyhemoglobin ABG pO2 ABG HCO3 ABG O2 Saturation ABG Base Excess Sodium 151 H Potassium Chloride 118.7 H Carbon Dioxide 21 L BUN Creatinine Glucose 107 H POC Glucose 118 H 164 H Lactic Acid Calcium 8.3 L AST Total Protein Albumin Urine WBC (Auto) 01/11/20 01/12/20 01/12/20 16:28 00:19 05:40 WBC RBC Hgb Hct MCHC RDW Plt Count Lymph % (Auto) Lymph # Seg Neutrophils % Seg Neuts % (Manual) Lymphocytes % (Manual) Seg Neutrophils # Seg Neutrophils # Man Nucleated RBC % Lymphocytes # (Manual) PT INR Heparin Anti-Xa Level POC ABG pO2 ABG pH ABG Hemoglobin ABG Oxyhemoglobin ABG pO2 ABG HCO3 ABG O2 Saturation ABG Base Excess Sodium 148 H Potassium Chloride 111.6 H Carbon Dioxide 19 L BUN Creatinine Glucose 128 H POC Glucose 132 H 179 H Lactic Acid Calcium 8.2 L AST Total Protein Albumin Urine WBC (Auto) 01/12/20 01/12/20 01/12/20 06:17 11:37 17:21 WBC RBC Hgb Hct MCHC RDW Plt Count Lymph % (Auto) Lymph # Seg Neutrophils % Seg Neuts % (Manual) Lymphocytes % (Manual) Seg Neutrophils # Seg Neutrophils # Man Nucleated RBC % Lymphocytes # (Manual) PT INR Heparin Anti-Xa Level POC ABG pO2 ABG pH ABG Hemoglobin ABG Oxyhemoglobin ABG pO2 ABG HCO3 ABG O2 Saturation ABG Base Excess Sodium Potassium Chloride Carbon Dioxide BUN Creatinine Glucose POC Glucose 140 H 142 H 133 H Lactic Acid Calcium AST Total Protein Albumin Urine WBC (Auto) 01/12/20 01/13/20 01/13/20 23:14 05:26 07:00 WBC RBC Hgb Hct MCHC RDW Plt Count Lymph % (Auto) Lymph # Seg Neutrophils % Seg Neuts % (Manual) Lymphocytes % (Manual) Seg Neutrophils # Seg Neutrophils # Man Nucleated RBC % Lymphocytes # (Manual) PT INR Heparin Anti-Xa Level POC ABG pO2 ABG pH ABG Hemoglobin ABG Oxyhemoglobin ABG pO2 ABG HCO3 ABG O2 Saturation ABG Base Excess Sodium Potassium Chloride 110.0 H Carbon Dioxide BUN Creatinine Glucose 139 H POC Glucose 135 H 162 H Lactic Acid Calcium 7.8 L AST Total Protein Albumin Urine WBC (Auto) 01/13/20 01/13/20 01/13/20 12:14 17:52 21:40 WBC RBC Hgb Hct MCHC RDW Plt Count Lymph % (Auto) Lymph # Seg Neutrophils % Seg Neuts % (Manual) Lymphocytes % (Manual) Seg Neutrophils # Seg Neutrophils # Man Nucleated RBC % Lymphocytes # (Manual) PT INR Heparin Anti-Xa Level POC ABG pO2 ABG pH ABG Hemoglobin ABG Oxyhemoglobin ABG pO2 ABG HCO3 ABG O2 Saturation ABG Base Excess Sodium Potassium Chloride Carbon Dioxide BUN Creatinine Glucose POC Glucose 205 H 172 H 186 H Lactic Acid Calcium AST Total Protein Albumin Urine WBC (Auto) 01/14/20 01/14/20 01/14/20 04:28 11:01 11:01 WBC 14.8 H RBC 3.20 L Hgb 9.5 L Hct 28.0 L MCHC RDW Plt Count Lymph % (Auto) Lymph # Seg Neutrophils % Seg Neuts % (Manual) Lymphocytes % (Manual) Seg Neutrophils # Seg Neutrophils # Man Nucleated RBC % Lymphocytes # (Manual) PT INR Heparin Anti-Xa Level POC ABG pO2 ABG pH ABG Hemoglobin ABG Oxyhemoglobin ABG pO2 ABG HCO3 ABG O2 Saturation ABG Base Excess Sodium Potassium 3.2 L Chloride Carbon Dioxide BUN Creatinine 0.4 L Glucose POC Glucose 115 H Lactic Acid Calcium 8.0 L AST Total Protein Albumin Urine WBC (Auto) 01/14/20 01/14/20 01/14/20 11:01 16:33 22:32 WBC RBC Hgb Hct MCHC RDW Plt Count Lymph % (Auto) Lymph # Seg Neutrophils % Seg Neuts % (Manual) Lymphocytes % (Manual) Seg Neutrophils # Seg Neutrophils # Man Nucleated RBC % Lymphocytes # (Manual) PT 15.8 H INR 1.23 H Heparin Anti-Xa Level POC ABG pO2 ABG pH ABG Hemoglobin ABG Oxyhemoglobin ABG pO2 ABG HCO3 ABG O2 Saturation ABG Base Excess Sodium Potassium Chloride Carbon Dioxide BUN Creatinine Glucose POC Glucose 58 L 188 H Lactic Acid Calcium AST Total Protein Albumin Urine WBC (Auto) 01/15/20 01/15/20 01/15/20 05:35 06:19 17:17 WBC RBC Hgb Hct MCHC RDW Plt Count Lymph % (Auto) Lymph # Seg Neutrophils % Seg Neuts % (Manual) Lymphocytes % (Manual) Seg Neutrophils # Seg Neutrophils # Man Nucleated RBC % Lymphocytes # (Manual) PT INR Heparin Anti-Xa Level POC ABG pO2 ABG pH ABG Hemoglobin ABG Oxyhemoglobin ABG pO2 ABG HCO3 ABG O2 Saturation ABG Base Excess Sodium Potassium Chloride Carbon Dioxide BUN Creatinine 0.5 L Glucose 104 H POC Glucose 106 H 183 H Lactic Acid Calcium 7.8 L AST Total Protein Albumin Urine WBC (Auto) 01/15/20 01/16/20 01/16/20 22:29 05:35 05:59 WBC 14.7 H RBC 3.04 L Hgb 9.0 L Hct 27.0 L MCHC RDW Plt Count Lymph % (Auto) 9.1 L Lymph # Seg Neutrophils % 87.3 H Seg Neuts % (Manual) Lymphocytes % (Manual) Seg Neutrophils # 12.9 H Seg Neutrophils # Man Nucleated RBC % Lymphocytes # (Manual) PT INR Heparin Anti-Xa Level POC ABG pO2 ABG pH ABG Hemoglobin ABG Oxyhemoglobin ABG pO2 ABG HCO3 ABG O2 Saturation ABG Base Excess Sodium Potassium Chloride Carbon Dioxide BUN Creatinine Glucose POC Glucose 228 H 130 H Lactic Acid Calcium AST Total Protein Albumin Urine WBC (Auto) 01/16/20 01/16/20 01/16/20 09:52 12:49 17:30 WBC RBC Hgb Hct MCHC RDW Plt Count Lymph % (Auto) Lymph # Seg Neutrophils % Seg Neuts % (Manual) Lymphocytes % (Manual) Seg Neutrophils # Seg Neutrophils # Man Nucleated RBC % Lymphocytes # (Manual) PT INR Heparin Anti-Xa Level POC ABG pO2 ABG pH ABG Hemoglobin ABG Oxyhemoglobin ABG pO2 ABG HCO3 ABG O2 Saturation ABG Base Excess Sodium Potassium Chloride Carbon Dioxide BUN Creatinine Glucose POC Glucose 122 H 142 H 192 H Lactic Acid Calcium AST Total Protein Albumin Urine WBC (Auto) 01/16/20 01/17/20 01/17/20 23:01 08:36 08:36 WBC 12.7 H RBC 2.98 L Hgb 8.9 L Hct 26.4 L MCHC RDW Plt Count Lymph % (Auto) 8.8 L Lymph # 1.1 L Seg Neutrophils % 86.7 H Seg Neuts % (Manual) Lymphocytes % (Manual) Seg Neutrophils # 11.0 H Seg Neutrophils # Man Nucleated RBC % Lymphocytes # (Manual) PT INR Heparin Anti-Xa Level POC ABG pO2 ABG pH ABG Hemoglobin ABG Oxyhemoglobin ABG pO2 ABG HCO3 ABG O2 Saturation ABG Base Excess Sodium Potassium 3.3 L D Chloride Carbon Dioxide BUN Creatinine 0.4 L Glucose POC Glucose 141 H Lactic Acid Calcium 8.1 L AST Total Protein 4.6 L Albumin 1.6 L Urine WBC (Auto) 01/17/20 01/17/20 01/18/20 11:43 23:56 06:27 WBC RBC Hgb Hct MCHC RDW Plt Count Lymph % (Auto) Lymph # Seg Neutrophils % Seg Neuts % (Manual) Lymphocytes % (Manual) Seg Neutrophils # Seg Neutrophils # Man Nucleated RBC % Lymphocytes # (Manual) PT INR Heparin Anti-Xa Level POC ABG pO2 ABG pH ABG Hemoglobin ABG Oxyhemoglobin ABG pO2 ABG HCO3 ABG O2 Saturation ABG Base Excess Sodium Potassium Chloride Carbon Dioxide BUN Creatinine Glucose POC Glucose 137 H 215 H 122 H Lactic Acid Calcium AST Total Protein Albumin Urine WBC (Auto) 01/18/20 01/18/20 01/18/20 07:31 07:31 11:39 WBC 12.1 H RBC 3.23 L Hgb 9.7 L Hct 28.7 L MCHC RDW Plt Count Lymph % (Auto) 9.2 L Lymph # 1.1 L Seg Neutrophils % 85.0 H Seg Neuts % (Manual) Lymphocytes % (Manual) Seg Neutrophils # 10.3 H Seg Neutrophils # Man Nucleated RBC % Lymphocytes # (Manual) PT INR Heparin Anti-Xa Level POC ABG pO2 ABG pH ABG Hemoglobin ABG Oxyhemoglobin ABG pO2 ABG HCO3 ABG O2 Saturation ABG Base Excess Sodium Potassium Chloride Carbon Dioxide BUN Creatinine 0.4 L Glucose 108 H POC Glucose 172 H Lactic Acid Calcium AST Total Protein 5.3 L Albumin 2.1 L Urine WBC (Auto) 01/18/20 01/19/20 01/19/20 18:22 00:15 11:30 WBC RBC Hgb Hct MCHC RDW Plt Count Lymph % (Auto) Lymph # Seg Neutrophils % Seg Neuts % (Manual) Lymphocytes % (Manual) Seg Neutrophils # Seg Neutrophils # Man Nucleated RBC % Lymphocytes # (Manual) PT INR Heparin Anti-Xa Level POC ABG pO2 ABG pH ABG Hemoglobin ABG Oxyhemoglobin ABG pO2 ABG HCO3 ABG O2 Saturation ABG Base Excess Sodium Potassium Chloride Carbon Dioxide BUN Creatinine Glucose POC Glucose 119 H 135 H 163 H Lactic Acid Calcium AST Total Protein Albumin Urine WBC (Auto) 01/19/20 01/19/20 01/20/20 17:44 22:59 03:44 WBC 11.1 H RBC 2.77 L Hgb 8.4 L Hct 25.0 L MCHC RDW Plt Count Lymph % (Auto) Lymph # Seg Neutrophils % 74.6 H Seg Neuts % (Manual) Lymphocytes % (Manual) Seg Neutrophils # 8.3 H Seg Neutrophils # Man Nucleated RBC % Lymphocytes # (Manual) PT INR Heparin Anti-Xa Level POC ABG pO2 ABG pH ABG Hemoglobin ABG Oxyhemoglobin ABG pO2 ABG HCO3 ABG O2 Saturation ABG Base Excess Sodium Potassium Chloride Carbon Dioxide BUN Creatinine Glucose POC Glucose 161 H 182 H Lactic Acid Calcium AST Total Protein Albumin Urine WBC (Auto) 01/20/20 01/21/20 01/21/20 03:44 00:07 05:51 WBC RBC 2.84 L Hgb 8.6 L Hct 25.5 L MCHC RDW Plt Count 463 H Lymph % (Auto) Lymph # Seg Neutrophils % 76.9 H Seg Neuts % (Manual) Lymphocytes % (Manual) Seg Neutrophils # 7.8 H Seg Neutrophils # Man Nucleated RBC % Lymphocytes # (Manual) PT INR Heparin Anti-Xa Level POC ABG pO2 ABG pH ABG Hemoglobin ABG Oxyhemoglobin ABG pO2 ABG HCO3 ABG O2 Saturation ABG Base Excess Sodium Potassium Chloride Carbon Dioxide BUN Creatinine 0.4 L Glucose POC Glucose 68 L Lactic Acid Calcium 7.9 L AST Total Protein 4.7 L Albumin 1.9 L Urine WBC (Auto) 01/21/20 01/21/20 01/21/20 05:51 05:58 11:25 WBC RBC Hgb Hct MCHC RDW Plt Count Lymph % (Auto) Lymph # Seg Neutrophils % Seg Neuts % (Manual) Lymphocytes % (Manual) Seg Neutrophils # Seg Neutrophils # Man Nucleated RBC % Lymphocytes # (Manual) PT INR Heparin Anti-Xa Level POC ABG pO2 ABG pH ABG Hemoglobin ABG Oxyhemoglobin ABG pO2 ABG HCO3 ABG O2 Saturation ABG Base Excess Sodium Potassium Chloride Carbon Dioxide 20 L BUN Creatinine 0.5 L Glucose 130 H POC Glucose 185 H 163 H Lactic Acid Calcium 7.6 L AST Total Protein 5.0 L Albumin 1.9 L Urine WBC (Auto) 01/21/20 01/21/20 01/22/20 16:22 21:17 01:28 WBC RBC 2.60 L Hgb 8.0 L Hct 23.3 L MCHC RDW Plt Count Lymph % (Auto) Lymph # Seg Neutrophils % 74.8 H Seg Neuts % (Manual) Lymphocytes % (Manual) Seg Neutrophils # Seg Neutrophils # Man Nucleated RBC % Lymphocytes # (Manual) PT INR Heparin Anti-Xa Level POC ABG pO2 ABG pH ABG Hemoglobin ABG Oxyhemoglobin ABG pO2 ABG HCO3 ABG O2 Saturation ABG Base Excess Sodium Potassium Chloride Carbon Dioxide BUN Creatinine Glucose POC Glucose 177 H 67 L Lactic Acid Calcium AST Total Protein Albumin Urine WBC (Auto) 01/22/20 01/22/20 01/22/20 01:28 01:28 12:06 WBC RBC Hgb Hct MCHC RDW Plt Count Lymph % (Auto) Lymph # Seg Neutrophils % Seg Neuts % (Manual) Lymphocytes % (Manual) Seg Neutrophils # Seg Neutrophils # Man Nucleated RBC % Lymphocytes # (Manual) PT INR Heparin Anti-Xa Level POC ABG pO2 ABG pH ABG Hemoglobin ABG Oxyhemoglobin ABG pO2 ABG HCO3 ABG O2 Saturation ABG Base Excess Sodium Potassium Chloride 107.6 H Carbon Dioxide BUN Creatinine 0.4 L Glucose 152 H POC Glucose 203 H 140 H Lactic Acid Calcium 7.5 L AST Total Protein 4.0 L Albumin 2.0 L Urine WBC (Auto) 01/22/20 01/22/20 01/23/20 16:24 22:55 06:10 WBC RBC 2.68 L Hgb 8.6 L Hct 24.1 L MCHC 36 H RDW Plt Count Lymph % (Auto) Lymph # Seg Neutrophils % Seg Neuts % (Manual) 71.0 H Lymphocytes % (Manual) Seg Neutrophils # Seg Neutrophils # Man Nucleated RBC % Lymphocytes # (Manual) PT INR Heparin Anti-Xa Level POC ABG pO2 ABG pH ABG Hemoglobin ABG Oxyhemoglobin ABG pO2 ABG HCO3 ABG O2 Saturation ABG Base Excess Sodium Potassium Chloride Carbon Dioxide BUN Creatinine Glucose POC Glucose 205 H 196 H Lactic Acid Calcium AST Total Protein Albumin Urine WBC (Auto) 01/23/20 01/23/20 01/23/20 06:10 07:35 11:59 WBC RBC Hgb Hct MCHC RDW Plt Count Lymph % (Auto) Lymph # Seg Neutrophils % Seg Neuts % (Manual) Lymphocytes % (Manual) Seg Neutrophils # Seg Neutrophils # Man Nucleated RBC % Lymphocytes # (Manual) PT INR Heparin Anti-Xa Level POC ABG pO2 ABG pH ABG Hemoglobin ABG Oxyhemoglobin ABG pO2 ABG HCO3 ABG O2 Saturation ABG Base Excess Sodium Potassium Chloride 108.8 H Carbon Dioxide BUN Creatinine 0.4 L Glucose 105 H POC Glucose 111 H 123 H Lactic Acid Calcium 8.0 L AST Total Protein 4.9 L D Albumin 2.0 L Urine WBC (Auto) 01/23/20 01/24/20 01/24/20 22:45 11:24 16:41 WBC RBC Hgb Hct MCHC RDW Plt Count Lymph % (Auto) Lymph # Seg Neutrophils % Seg Neuts % (Manual) Lymphocytes % (Manual) Seg Neutrophils # Seg Neutrophils # Man Nucleated RBC % Lymphocytes # (Manual) PT INR Heparin Anti-Xa Level POC ABG pO2 ABG pH ABG Hemoglobin ABG Oxyhemoglobin ABG pO2 ABG HCO3 ABG O2 Saturation ABG Base Excess Sodium Potassium Chloride Carbon Dioxide BUN Creatinine Glucose POC Glucose 180 H 182 H 177 H Lactic Acid Calcium AST Total Protein Albumin Urine WBC (Auto) 01/24/20 01/25/20 01/25/20 23:11 07:12 11:35 WBC RBC Hgb Hct MCHC RDW Plt Count Lymph % (Auto) Lymph # Seg Neutrophils % Seg Neuts % (Manual) Lymphocytes % (Manual) Seg Neutrophils # Seg Neutrophils # Man Nucleated RBC % Lymphocytes # (Manual) PT INR Heparin Anti-Xa Level POC ABG pO2 ABG pH ABG Hemoglobin ABG Oxyhemoglobin ABG pO2 ABG HCO3 ABG O2 Saturation ABG Base Excess Sodium Potassium Chloride Carbon Dioxide BUN Creatinine Glucose POC Glucose 142 H 135 H 142 H Lactic Acid Calcium AST Total Protein Albumin Urine WBC (Auto) 01/25/20 01/26/20 01/26/20 16:33 00:04 11:35 WBC RBC Hgb Hct MCHC RDW Plt Count Lymph % (Auto) Lymph # Seg Neutrophils % Seg Neuts % (Manual) Lymphocytes % (Manual) Seg Neutrophils # Seg Neutrophils # Man Nucleated RBC % Lymphocytes # (Manual) PT INR Heparin Anti-Xa Level POC ABG pO2 ABG pH ABG Hemoglobin ABG Oxyhemoglobin ABG pO2 ABG HCO3 ABG O2 Saturation ABG Base Excess Sodium Potassium Chloride Carbon Dioxide BUN Creatinine Glucose POC Glucose 247 H 233 H 200 H Lactic Acid Calcium AST Total Protein Albumin Urine WBC (Auto) 01/26/20 01/26/20 01/26/20 16:30 16:30 17:19 WBC RBC Hgb 7.4 L Hct 22.0 L MCHC RDW Plt Count Lymph % (Auto) Lymph # Seg Neutrophils % Seg Neuts % (Manual) Lymphocytes % (Manual) Seg Neutrophils # Seg Neutrophils # Man Nucleated RBC % Lymphocytes # (Manual) PT 18.4 H INR 1.50 H Heparin Anti-Xa Level POC ABG pO2 ABG pH ABG Hemoglobin ABG Oxyhemoglobin ABG pO2 ABG HCO3 ABG O2 Saturation ABG Base Excess Sodium Potassium Chloride Carbon Dioxide BUN Creatinine Glucose POC Glucose 67 L Lactic Acid Calcium AST Total Protein Albumin Urine WBC (Auto) 01/26/20 01/26/20 01/27/20 20:24 21:32 00:16 WBC RBC Hgb Hct MCHC RDW Plt Count Lymph % (Auto) Lymph # Seg Neutrophils % Seg Neuts % (Manual) Lymphocytes % (Manual) Seg Neutrophils # Seg Neutrophils # Man Nucleated RBC % Lymphocytes # (Manual) PT INR Heparin Anti-Xa Level POC ABG pO2 51.8 L ABG pH ABG Hemoglobin 8.5 L ABG Oxyhemoglobin 84.7 L ABG pO2 ABG HCO3 ABG O2 Saturation ABG Base Excess Sodium Potassium Chloride Carbon Dioxide BUN Creatinine Glucose POC Glucose 162 H 141 H Lactic Acid Calcium AST Total Protein Albumin Urine WBC (Auto) 01/27/20 01/27/20 01/27/20 01:42 02:18 05:57 WBC RBC Hgb Hct MCHC RDW Plt Count Lymph % (Auto) Lymph # Seg Neutrophils % Seg Neuts % (Manual) Lymphocytes % (Manual) Seg Neutrophils # Seg Neutrophils # Man Nucleated RBC % Lymphocytes # (Manual) PT INR Heparin Anti-Xa Level 2.00 H POC ABG pO2 ABG pH ABG Hemoglobin ABG Oxyhemoglobin ABG pO2 ABG HCO3 ABG O2 Saturation ABG Base Excess Sodium Potassium Chloride Carbon Dioxide BUN Creatinine Glucose POC Glucose 183 H 124 H Lactic Acid Calcium AST Total Protein Albumin Urine WBC (Auto) 01/27/20 01/27/20 01/27/20 06:30 06:30 12:23 WBC RBC 2.75 L Hgb 8.4 L Hct 24.9 L MCHC RDW 16.0 H Plt Count 474 H Lymph % (Auto) 12.7 L Lymph # Seg Neutrophils % 83.2 H Seg Neuts % (Manual) Lymphocytes % (Manual) Seg Neutrophils # 8.4 H Seg Neutrophils # Man Nucleated RBC % Lymphocytes # (Manual) PT INR Heparin Anti-Xa Level POC ABG pO2 ABG pH ABG Hemoglobin ABG Oxyhemoglobin ABG pO2 ABG HCO3 ABG O2 Saturation ABG Base Excess Sodium Potassium 3.5 L Chloride 110.2 H Carbon Dioxide BUN Creatinine 0.4 L Glucose 101 H POC Glucose 126 H Lactic Acid Calcium 7.8 L AST Total Protein Albumin Urine WBC (Auto) 01/27/20 01/27/20 01/28/20 17:31 23:40 00:00 WBC RBC Hgb Hct MCHC RDW Plt Count Lymph % (Auto) Lymph # Seg Neutrophils % Seg Neuts % (Manual) Lymphocytes % (Manual) Seg Neutrophils # Seg Neutrophils # Man Nucleated RBC % Lymphocytes # (Manual) PT INR Heparin Anti-Xa Level 2.00 H POC ABG pO2 ABG pH ABG Hemoglobin ABG Oxyhemoglobin ABG pO2 ABG HCO3 ABG O2 Saturation ABG Base Excess Sodium Potassium Chloride Carbon Dioxide BUN Creatinine Glucose POC Glucose 133 H 136 H Lactic Acid Calcium AST Total Protein Albumin Urine WBC (Auto) 01/28/20 01/28/20 01/28/20 04:26 04:26 05:35 WBC RBC Hgb 9.6 L Hct 28.5 L MCHC RDW Plt Count 508 H Lymph % (Auto) Lymph # Seg Neutrophils % Seg Neuts % (Manual) Lymphocytes % (Manual) Seg Neutrophils # Seg Neutrophils # Man Nucleated RBC % Lymphocytes # (Manual) PT INR Heparin Anti-Xa Level POC ABG pO2 ABG pH ABG Hemoglobin ABG Oxyhemoglobin ABG pO2 ABG HCO3 ABG O2 Saturation ABG Base Excess Sodium Potassium Chloride Carbon Dioxide 19 L BUN 20 H Creatinine 0.5 L Glucose 103 H POC Glucose 135 H Lactic Acid Calcium 7.9 L AST Total Protein Albumin Urine WBC (Auto) 01/28/20 01/28/20 01/28/20 08:50 11:10 11:51 WBC RBC Hgb Hct MCHC RDW Plt Count Lymph % (Auto) Lymph # Seg Neutrophils % Seg Neuts % (Manual) Lymphocytes % (Manual) Seg Neutrophils # Seg Neutrophils # Man Nucleated RBC % Lymphocytes # (Manual) PT INR Heparin Anti-Xa Level 0.74 H POC ABG pO2 67.2 L ABG pH ABG Hemoglobin 9.3 L ABG Oxyhemoglobin ABG pO2 ABG HCO3 ABG O2 Saturation ABG Base Excess Sodium Potassium Chloride Carbon Dioxide BUN Creatinine Glucose POC Glucose 160 H Lactic Acid Calcium AST Total Protein Albumin Urine WBC (Auto) 01/28/20 01/28/20 01/29/20 17:19 23:53 03:52 WBC RBC Hgb Hct MCHC RDW Plt Count Lymph % (Auto) Lymph # Seg Neutrophils % Seg Neuts % (Manual) Lymphocytes % (Manual) Seg Neutrophils # Seg Neutrophils # Man Nucleated RBC % Lymphocytes # (Manual) PT INR Heparin Anti-Xa Level POC ABG pO2 ABG pH 7.510 H ABG Hemoglobin 7.3 L ABG Oxyhemoglobin ABG pO2 357.0 H ABG HCO3 19.6 L ABG O2 Saturation 99.6 H ABG Base Excess -2.9 L Sodium Potassium Chloride Carbon Dioxide BUN Creatinine Glucose POC Glucose 177 H 142 H Lactic Acid Calcium AST Total Protein Albumin Urine WBC (Auto) 01/29/20 01/29/20 01/29/20 04:58 04:58 06:01 WBC 13.1 H RBC 2.75 L Hgb 8.6 L Hct 25.6 L MCHC RDW 17.7 H Plt Count Lymph % (Auto) Lymph # Seg Neutrophils % Seg Neuts % (Manual) 91.0 H Lymphocytes % (Manual) 6.0 L Seg Neutrophils # Seg Neutrophils # Man 11.9 H Nucleated RBC % 1.0 H Lymphocytes # (Manual) 0.8 L PT INR Heparin Anti-Xa Level POC ABG pO2 ABG pH ABG Hemoglobin ABG Oxyhemoglobin ABG pO2 ABG HCO3 ABG O2 Saturation ABG Base Excess Sodium 148 H Potassium 3.5 L D Chloride 113.2 H Carbon Dioxide 21 L BUN 20 H Creatinine Glucose 137 H POC Glucose 167 H Lactic Acid Calcium 8.1 L AST Total Protein Albumin Urine WBC (Auto) 01/29/20 11:45 WBC RBC Hgb Hct MCHC RDW Plt Count Lymph % (Auto) Lymph # Seg Neutrophils % Seg Neuts % (Manual) Lymphocytes % (Manual) Seg Neutrophils # Seg Neutrophils # Man Nucleated RBC % Lymphocytes # (Manual) PT INR Heparin Anti-Xa Level POC ABG pO2 ABG pH ABG Hemoglobin ABG Oxyhemoglobin ABG pO2 ABG HCO3 ABG O2 Saturation ABG Base Excess Sodium Potassium Chloride Carbon Dioxide BUN Creatinine Glucose POC Glucose 185 H Lactic Acid Calcium AST Total Protein Albumin Urine WBC (Auto) Chest x-ray: image reviewed (right pleural effusion) Allied health notes reviewed: nursing
[2020-01-29] MEDS: HYDROCORTISONE SOD SUCC 100 MG/2 ML VIAL IV SCH ×2 (15:23→21:12)
[2020-01-29] MEDS: FAMOTIDINE 20 MG TAB PO SCH ×2 (15:24→21:14)
[2020-01-29] MEDS: DONEPEZIL 10 MG TAB PO SCH (21:13)
[2020-01-29] MEDS: traZODone 50 MG TAB PO SCH (21:13)
[2020-01-29] MEDS: MIRTAZAPINE 15 MG TAB PO SCH (21:15)
[2020-01-30] MEDS: NORepinephrine/NS 4 MG-250 ML 4 MG/250 ML BAG IV SCH (01:17)
[2020-01-30 04:16] LABS: ABG Base Excess 0.1 mmol/L (-2.0-3.0); ABG HCO3 23.4 mmol/L (20.0-26.0); ABG Methemoglobin 0.6 % (0.0-1.5); ABG PCO2 31.7 mm Hg; ABG PH 7.485 pH Units (7.350-7.450)
[2020-01-30 05:54] LABS: Hematocrit 23.5 % (30.3-42.9); Hemoglobin 7.8 gm/dl (10.1-14.3)
[2020-01-30] MEDS: INSULIN REGULAR, HUMAN 100 UNIT/ML 3ML VIAL SUB-Q SCH ×3 (05:57→14:43)
[2020-01-30] MEDS: HYDROCORTISONE SOD SUCC 100 MG/2 ML VIAL IV SCH ×3 (06:45→22:38)
[2020-01-30] MEDS: FUROSEMIDE 40 MG/4 ML INJ IV SCH ×3 (06:45→17:53)
[2020-01-30] MEDS: PIPERACIL/TAZOBACTA 4.5/NS 100 4.5 GM/100 ML VIAL IV SCH ×3 (06:46→22:38)
--- NOTE | 2020-01-30 08:23 | Progress Note ---
Assessment and Plan Assessment and plan: -- s/p PEA cardiac arrest Noted Bradycardia with PEA arrest following intubation. Patient coded per ACLS protocol with ROSC -- Hydropneumothorax, not POA Patient developed hydropneumothorax on 01/15. Surgery consulted and patient had a chest tube placed on 01/15. Surgery following. s/p chest tube removed 01/22 --Acute respiratory failure, not POA likely from Hydropneumothorax, and recurrent left pleural effusion s/p chest tube - improved o2 saturation Now developed recurrent pleural effusion - ordered for thoracentesis, cont iv lasix patient intubated today -- large Left pleural effusion 01/25 Wait for thoracentesis, continue Lasix for now, stopped any IV fluid -- Hypernatremia, Resolved -- Sepsis, likely UTI and infected Sacral decubitus ulcer On zosyn now, cont to Monitor vital signs closely -- UTI (urinary tract infection) treated with abx -- Bilateral pulmonary embolism Had pulmonary embolism 7 months ago. CTA chest and LE doppler showed no acute PE or DVT eliquis now stopped --Sacral decubitus ulcer, infected This was present on admission, Continue wound care Now status post wound debridement on 01/15. Wound vac in place ID recommend cont zosyn 4.5 g IV q8h total 6 weeks stop date 02/27/2020 -- Uncontrolled diabetes mellitus DM management with SSI, TF -- Dementia Continue donepezil -- Moderate protein-calorie malnutrition She is not eating well and is getting feeds through the NG tube. Discussed with - this problem has been chronic agreed for PEG PEG placed 01/13. Now on tube feeds --DVT prophylaxis heparin drip for PE treatment The high probability of a clinically significant, sudden or life threatening deterioration of the [Respiratory, ACCESS DATABASE DEVELOPER, CVs] system(s) required my full and direct attention, intervention and personal management. The aggregate critical care time was [32] minutes. This time is in addition to time spent performing reported procedures but includes the following: [x] Data Review and interpretation [x] Patient assessment and monitoring of vital signs [x] Documentation [x] Medication orders and management History Interval history: I have seen and examined the patient at the bedside this morning in ICU Patient remains intubated on ventilatory support Unresponsive Vital signs noted Hospitalist Physical - Constitutional Vitals: Temp Pulse Resp BP Pulse Ox 98.8 F 87 16 110/62 100 01/30/20 03:24 01/30/20 08:00 01/30/20 07:45 01/30/20 07:59 01/30/20 07:59 General appearance: Present: mild distress, other (Intubated on vent) - EENT Eyes: Present: PERRL, EOM intact - Neck Neck: Present: supple. Absent: enlarged thyroid - Respiratory Respiratory effort: normal Respiratory: bilateral: diminished, rhonchi, negative: rales, wheezing - Cardiovascular Rhythm: regular Heart Sounds: Present: S1 & S2 - Extremities Extremities: no ischemia, No edema - Abdominal General gastrointestinal: soft, non-distended, normal bowel sounds - Integumentary Integumentary: Present: clear, warm - Psychiatric Psychiatric: other (Intubated on vent) - Neurologic Neurologic: other (Intubated on vent) Results - Labs CBC & Chem 7: 01/30/20 04:00 01/29/20 04:58 Labs: Laboratory Last Values WBC 13.1 K/mm3 (4.5-11.0) H 01/29/20 04:58 RBC 2.75 M/mm3 (3.65-5.03) L 01/29/20 04:58 Hgb 7.8 gm/dl (10.1-14.3) L 01/30/20 04:00 Hct 23.5 % (30.3-42.9) L 01/30/20 04:00 MCV 93 fl (79-97) 01/29/20 04:58 MCH 31 pg (28-32) 01/29/20 04:58 MCHC 34 % (30-34) 01/29/20 04:58 RDW 17.7 % (13.2-15.2) H 01/29/20 04:58 Plt Count 373 K/mm3 (140-440) 01/30/20 04:00 Lymph % (Auto) 12.7 % (13.4-35.0) L 01/27/20 06:30 [place] % (Auto) 3.9 % (0.0-7.3) 01/27/20 06:30 Eos % (Auto) 0.1 % (0.0-4.3) 01/27/20 06:30 Baso % (Auto) 0.1 % (0.0-1.8) 01/27/20 06:30 Lymph # 1.3 K/mm3 (1.2-5.4) 01/27/20 06:30 [place] # 0.4 K/mm3 (0.0-0.8) 01/27/20 06:30 Eos # 0.0 K/mm3 (0.0-0.4) 01/27/20 06:30 Baso # 0.0 K/mm3 (0.0-0.1) 01/27/20 06:30 Add Manual Diff Complete 01/29/20 04:58 Total Counted 100 01/29/20 04:58 Seg Neutrophils % Gerentological Physiotherapist 01/29/20 04:58 Seg Neutrophils # 8.4 K/mm3 (1.8-7.7) H 01/27/20 06:30 Seg Neuts % (Manual) 91.0 % (40.0-70.0) H 01/29/20 04:58 Band Neutrophils % 0 % 01/29/20 04:58 Lymphocytes % (Manual) 6.0 % (13.4-35.0) L 01/29/20 04:58 Reactive Lymphs % (Man) 0 % 01/29/20 04:58 Monocytes % (Manual) 3.0 % (0.0-7.3) 01/29/20 04:58 Eosinophils % (Manual) 0 % (0.0-4.3) 01/29/20 04:58 Basophils % (Manual) 0 % (0.0-1.8) 01/29/20 04:58 Metamyelocytes % 0 % 01/29/20 04:58 Myelocytes % 0 % 01/29/20 04:58 Promyelocytes % 0 % 01/29/20 04:58 Blast Cells % 0 % 01/29/20 04:58 Nucleated RBC % 1.0 % (0.0-0.9) H 01/29/20 04:58 Seg Neutrophils # Man 11.9 K/mm3 (1.8-7.7) H 01/29/20 04:58 Band Neutrophils # 0.0 K/mm3 01/29/20 04:58 Lymphocytes # (Manual) 0.8 K/mm3 (1.2-5.4) L 01/29/20 04:58 Abs React Lymphs (Man) 0.0 K/mm3 01/29/20 04:58 Monocytes # (Manual) 0.4 K/mm3 (0.0-0.8) 01/29/20 04:58 Eosinophils # (Manual) 0.0 K/mm3 (0.0-0.4) 01/29/20 04:58 Basophils # (Manual) 0.0 K/mm3 (0.0-0.1) 01/29/20 04:58 Metamyelocytes # 0.0 K/mm3 01/29/20 04:58 Myelocytes # 0.0 K/mm3 01/29/20 04:58 Promyelocytes # 0.0 K/mm3 01/29/20 04:58 Blast Cells # 0.0 K/mm3 01/29/20 04:58 WBC Morphology Not Reportable 01/29/20 04:58 Hypersegmented Neuts Not Reportable 01/29/20 04:58 Hyposegmented Neuts Not Reportable 01/29/20 04:58 Hypogranular Neuts Not Reportable 01/29/20 04:58 Smudge Cells Not Reportable 01/29/20 04:58 Toxic Granulation Not Reportable 01/29/20 04:58 Toxic Vacuolation Not Reportable 01/29/20 04:58 Dohle Bodies Not Reportable 01/29/20 04:58 Pelger-Huet Anomaly Not Reportable 01/29/20 04:58 Lata Rods Not Reportable 01/29/20 04:58 Platelet Estimate Consistent w auto 01/29/20 04:58 Clumped Platelets Not Reportable 01/29/20 04:58 Plt Clumps, EDTA Not Reportable 01/29/20 04:58 Large Platelets Not Reportable 01/29/20 04:58 Giant Platelets Not Reportable 01/29/20 04:58 Platelet Satelliting Not Reportable 01/29/20 04:58 Plt Morphology Comment Not Reportable 01/29/20 04:58 RBC Morphology Not Reportable 01/29/20 04:58 Dimorphic RBCs Not Reportable 01/29/20 04:58 Polychromasia Not Reportable 01/29/20 04:58 Hypochromasia Not Reportable 01/29/20 04:58 Poikilocytosis Not Reportable 01/29/20 04:58 Anisocytosis Few 01/29/20 04:58 Microcytosis Not Reportable 01/29/20 04:58 Macrocytosis Few 01/29/20 04:58 Spherocytes Not Reportable 01/29/20 04:58 Pappenheimer Bodies Not Reportable 01/29/20 04:58 Sickle Cells Not Reportable 01/29/20 04:58 Target Cells Not Reportable 01/29/20 04:58 Tear Drop Cells Not Reportable 01/29/20 04:58 Ovalocytes Not Reportable 01/29/20 04:58 Helmet Cells Not Reportable 01/29/20 04:58 [place] Bodies Not Reportable 01/29/20 04:58 [place] Rings Not Reportable 01/29/20 04:58 Leonidas Cells Few 01/29/20 04:58 Bite Cells Not Reportable 01/29/20 04:58 Crenated Cell Not Reportable 01/29/20 04:58 Elliptocytes Not Reportable 01/29/20 04:58 Acanthocytes (Spur) Not Reportable 01/29/20 04:58 Rouleaux Not Reportable 01/29/20 04:58 Hemoglobin C Crystals Not Reportable 01/29/20 04:58 Schistocytes Few 01/29/20 04:58 Malaria parasites Not Reportable 01/29/20 04:58 Gideon Bodies Not Reportable 01/29/20 04:58 Hem Pathologist Commnt No 01/29/20 04:58 PT 18.4 Sec. (12.2-14.9) H 01/26/20 16:30 INR 1.50 (0.87-1.13) H 01/26/20 16:30 APTT 33.9 Sec. (24.2-36.6) 01/26/20 16:30 Heparin Anti-Xa Level 0.74 U.I./ml (0.3-0.7) H 01/28/20 08:50 ABG pH 7.485 pH Units (7.350-7.450) H 01/30/20 03:24 POC ABG pCO2 32.9 mmHg (32.0-48.0) 01/28/20 11:10 ABG pCO2 31.7 mm Hg 01/30/20 03:24 ABG Oxyhemoglobin 84.7 (94-98) L 01/26/20 21:32 POC ABG pO2 67.2 mmHg (83-108) L 01/28/20 11:10 ABG pO2 102.0 mm Hg (80.0-90.0) H 01/30/20 03:24 POC ABG HCO3 21.2 01/28/20 11:10 ABG HCO3 23.4 mmol/L (20.0-26.0) 01/30/20 03:24 ABG O2 Saturation 98.0 % (95.0-99.0) 01/30/20 03:24 ABG O2 Content 9.3 (0.0-44) 01/30/20 03:24 POC ABG Base Excess -2.6 01/28/20 11:10 ABG Base Excess 0.1 mmol/L (-2.0-3.0) 01/30/20 03:24 ABG Hemoglobin 6.7 gm/dl (12.0-16.0) L 01/30/20 03:24 ABG Carboxyhemoglobin 1.3 % (0.0-5.0) 01/30/20 03:24 ABG Methemoglobin 0.6 % (0.0-1.5) 01/30/20 03:24 Carboxyhemoglobin 1.0 (0.5-1.5) 01/26/20 21:32 Oxyhemoglobin 96.1 % (95.0-99.0) 01/30/20 03:24 FiO2 60 % 01/30/20 03:24 Sodium 148 mmol/L (137-145) H 01/29/20 04:58 Potassium 3.5 mmol/L (3.6-5.0) L D 01/29/20 04:58 Chloride 113.2 mmol/L (98-107) H 01/29/20 04:58 Carbon Dioxide 21 mmol/L (22-30) L 01/29/20 04:58 Anion Gap 17 mmol/L 01/29/20 04:58 BUN 20 mg/dL (7-17) H 01/29/20 04:58 Creatinine 0.6 mg/dL (0.6-1.2) 01/29/20 04:58 Estimated GFR > 60 ml/min 01/29/20 04:58 BUN/Creatinine Ratio 33 % 01/29/20 04:58 Glucose 137 mg/dL (65-100) H 01/29/20 04:58 POC Glucose 122 (70-105) H 01/30/20 05:50 Hemoglobin A1c 5.3 % (4-6) 01/11/20 00:45 Lactic Acid 1.30 mmol/L (0.7-2.0) 01/26/20 23:27 Phosphorus 2.80 mg/dL (2.5-4.5) 01/26/20 23:27 Magnesium 2.00 mg/dL (1.7-2.3) 01/26/20 23:27 Calcium 8.1 mg/dL (8.4-10.2) L 01/29/20 04:58 Total Bilirubin 0.30 mg/dL (0.1-1.2) 01/23/20 06:10 AST 16 units/L (5-40) 01/23/20 06:10 ALT 12 units/L (7-56) 01/23/20 06:10 Alkaline Phosphatase 52 units/L (35-129) 01/23/20 06:10 Total Protein 4.9 g/dL (6.3-8.2) L D 01/23/20 06:10 Albumin 2.0 g/dL (3.9-5) L 01/23/20 06:10 Albumin/Globulin Ratio 0.7 % 01/23/20 06:10 C-Reactive Protein 14.80 mg/dL (0.00-1.30) H 01/29/20 Unknown TSH 2.440 mlU/mL (0.270-4.200) 01/10/20 10:10 Procalcitonin < 0.05 ng/mL (<0.15) 01/26/20 23:27 Urine Color Cordelia (Yellow) 01/08/20 Unknown Urine Turbidity Cloudy (Clear) 01/08/20 Unknown Urine pH 5.0 (5.0-7.0) 01/08/20 Unknown Ur Specific [place] 1.018 (1.003-1.030) 01/08/20 Unknown Urine Protein 30 mg/dl mg/dL (Negative) 01/08/20 Unknown Urine Glucose (UA) Neg mg/dL (Negative) 01/08/20 Unknown Urine Ketones Neg mg/dL (Negative) 01/08/20 Unknown Urine Blood Mod (Negative) 01/08/20 Unknown Urine Nitrite Neg (Negative) 01/08/20 Unknown Urine Bilirubin Neg (Negative) 01/08/20 Unknown Urine Urobilinogen < 2.0 mg/dL (<2.0) 01/08/20 Unknown Ur Leukocyte Esterase Sm (Negative) 01/08/20 Unknown Urine WBC (Auto) 11.0 /HPF (0.0-6.0) H 01/08/20 Unknown Urine RBC (Auto) 7.0 /HPF (0.0-6.0) 01/08/20 Unknown U Epithel Cells (Auto) < 1.0 /HPF (0-13.0) 01/08/20 Unknown Urine Bacteria (Auto) 1+ /HPF (Negative) 01/08/20 Unknown Urine Mucus 2+ /HPF 01/08/20 Unknown Urine Yeast (Budding) 1+ /HPF 01/08/20 Unknown Vancomycin Trough 7.9 ug/mL (5.0-20.0) 01/17/20 16:04 Mejía/IV: Voiding Method External Female Catheter IV Catheter Type [Left Upper PICC Line arm] IV Catheter Type [Right Upper INT / Saline Lock arm] IV Catheter Type [Right Peripheral IV Forearm] Active Medications - Current Medications Current Medications: Generic Name Dose Route Start Last Admin Trade Name Freq PRN Reason Stop Dose Admin Acetaminophen 650 mg 01/08/20 23:14 01/18/20 06:03 Tylenol PO 650 mg Q4H PRN Administration Pain MILD(1-3)/Fever >100.5/GARCIA Lipase/Protease/Amylase 1 each 01/17/20 08:[address] 10,500 Unit FEEDTUBE PRN PRN For Clogged Feeding Tube Atorvastatin Calcium 10 mg 01/09/20 22:00 01/29/20 21:15 Atorvastatin PO 10 mg QHS BRO Administration Dextrose 0 ml 01/08/20 23:14 01/26/20 17:44 D50w (25gm) Syringe IV 25 ml Q30MIN PRN Administration Hypoglycemia Protocol Donepezil HCl 10 mg 01/09/20 22:00 01/29/20 21:13 Aricept PO 10 mg QHS BRO Administration Famotidine 20 mg 01/27/20 10:00 01/29/20 21:14 Pepcid PO 20 mg BID BRO Administration Fentanyl 50 mcg 01/28/20 10:57 Sublimaze IV Q10MIN PRN ANALGESIA Fluticasone Propionate 100 mcg 01/25/20 20:00 01/26/20 06:09 Flonase NS 100 mcg QDAY PRN Administration Nasal Congestion Furosemide 40 mg 01/29/20 06:00 01/30/20 08:09 Lasix IV Not Given 0600,1800 [facility] Heparin Sodium (Porcine) 5,000 unit 01/28/20 10:00 01/29/20 21:16 Heparin SUB-Q 5,000 unit Q12HR BRO Administration Hydrocortisone Sodium Succinate 100 mg 01/29/20 15:00 01/30/20 06:45 Solu-Cortef IV 100 mg Q8HR [facility] Administration Hydrophilic Ointment 1 applic 01/28/20 10:57 Vaseline Lip Therapy TP Q2HR PRN Dry Lips Piperacillin Sod/Tazobactam Sod 4.5 gm in 100 mls @ 200 mls/hr 01/19/20 14:00 01/30/20 06:46 Zosyn/Ns 4.5gm/100ml IV 02/27/20 22:29 200 mls/hr Q8HR [facility] Administration Protocol Norepinephrine 4 mg in 250 mls @ 7.5 mls/hr 01/26/20 20:00 01/30/20 06:00 Levophed Drip 4 Mg/Ns 250 Ml IV 3 mcg/min TITR BRO 11.25 mls/hr Titration Protocol 2 MCG/MIN Fentanyl Citrate 2,000 mcg in 100 mls @ 1.603 mls/hr 01/28/20 11:00 Fentanyl Drip Premix IV TITR BRO Protocol 0.5 MCG/KG/HR Insulin Human Regular 0 unit 01/27/20 12:00 01/30/20 05:57 Humulin R SUB-Q Not Given Q6HR [facility] Protocol Magnesium Hydroxide 30 ml 01/08/20 23:14 Milk Of Magnesia PO Q4H PRN Constipation Megestrol Acetate 400 mg 01/12/20 11:00 01/29/20 10:21 Megestrol PO 400 mg QDAY [facility] Administration Mirtazapine 15 mg 01/09/20 22:00 01/29/20 21:15 Remeron PO 15 mg QHS [facility] Administration Multi-Ingred Cream/Lotion/Oil/Oint 1 applic 01/28/20 10:57 Artificial Tears Ophth Oint OU Q4HR PRN Dry Eye(s) Ondansetron HCl 4 mg 01/08/20 23:14 Zofran IV Q8H PRN Nausea And Vomiting Simple Syrup 15 ml 01/17/20 08:37 Simple Syrup FEEDTUBE PRN PRN Hypoglycemia Simple Syrup 30 ml 01/17/20 08:37 Simple Syrup FEEDTUBE PRN PRN Hypoglycemia Sodium Bicarbonate 325 mg 01/17/20 08:37 Sodium Bicarbonate FEEDTUBE PRN PRN For Clogged Feeding Tube Sodium Chloride 10 ml 01/09/20 10:00 01/30/20 08:10 Sodium Chloride Flush Syringe 10 Ml IV Not Given BID BRO Sodium Chloride 10 ml 01/08/20 23:14 Sodium Chloride Flush Syringe 10 Ml IV PRN PRN LINE FLUSH Trazodone HCl 25 mg 01/09/20 22:00 01/29/20 21:13 Desyrel PO 25 mg QHS BRO Administration Nutrition/Malnutrition Assess - Dietary Evaluation Nutrition/Malnutrition Findings: Nutrition Notes Start: 01/09/20 12:13 Freq: Status: Active Protocol: Document 01/28/20 13:51 [email or web address] (Rec: 01/28/20 14:18 [email or web address]) Co-Sign 01/28/20 13:51 LP Nutrition Notes Need for Assessment generated from: MD Order Initial or Follow up Reassessment Current Diagnosis Decubitus(Pressure Ulcer), Diabetes,Sepsis Other Pertinent Diagnosis UTI, dementia, PE, Sacral wound Current Diet Bolus Jevity 5 cans/day Labs/Tests Reviewed Pertinent Medications Levophed Height 5 ft 2 in Weight 64.1 kg Mineral Body Weight (kg) 50.00 BMI 25.8 Subjective/Other Information MD consult for evaluate nutrional intake. Per MD, change TF. Percent of energy/protein needs met: 91%/100% Burn Absent Trauma Absent Current % PO Negligible Minimum of two criteria Yes Fluid Accumulation Mild (non-severe) Reduced Cso Strength Measurably Reduced (severe) #3 Nutrition Diagnosis Malnutrition Diagnosis Progress(for reassessment Continues documentation) #2 Nutrition Diagnosis Inadequate oral intake Diagnosis Progress(for reassessment Continues documentation) #1 Nutrition Diagnosis Increased nutrient needs ( specify in comment below) Diagnosis Progress(for reassessment Continues documentation) Is patient on ventilator? Yes Is Patient Ambulatory and/or Out of Bed No REE-([place]-confined to bed) 1343.052 Kcal/Kg value to use for calculation 24 Approximate Energy Requirements Using 1538 kcal/Kg Calculation Used for Recommendations Kcal/kg Additional Notes Protein needs 77-128g(1.2-2g/ kg) Fluid needs 1ml/kcal Nutrition Intervention Change Diet Order: Change to Vital AF 1.2 Nutrition Support: Vital AF 1.2 at 50ml/hr Flush 80ml q4h Kcal 1,440 Protein (gm) 90 Fluid (mL) 973 Goal #1 Meet at least 80% of kcal and protein needs via TF Goal #2 TF tolerance Goal #3 Wound Healing Anticipated Discharge Needs: Undetermined at this time Follow-Up By: 01/30/20 Additional Comments F/U TF tolerance
--- NOTE | 2020-01-30 09:04 | XRay Report ---
CHEST - 1 VIEW INDICATION: follow up respiratory failure COMPARISON: Yesterday FINDINGS: SUPPORT DEVICES: Stable support device positioning. HEART: Stable cardiomediastinal silhouette. LUNGS/PLEURA: Slightly improved aeration in the right lung base where there is patchy airspace disea se. Left lung remains clear. ADDITIONAL FINDINGS: None. IMPRESSION: Slightly improved exam. Signer Name: Jcarlos Owusu MD Signed: 01/30/2020 9:00 AM Workstation Name: [id number]
[2020-01-30] MEDS: HEPARIN 5,000 UNIT/1 ML VIAL SUB-Q SCH ×2 (09:54→22:40)
[2020-01-30] MEDS: FAMOTIDINE 20 MG TAB PO SCH ×2 (09:56→22:39)
[2020-01-30] MEDS: MEGESTROL 400 MG/10 ML ORAL LIQD PO SCH (09:56)
--- NOTE | 2020-01-30 13:04 | Progress Note ---
Assessment and Plan Severe sepsis with shock. Left lung atelectasis. Left pleural effusion. Acute hypoxemic respiratory failure. Acute possibly on chronic encephalopathy. History of diabetes. Urinary tract infection. History of pulmonary embolism, diagnosed several months ago. Sacral decubitus ulcer. Dementia. Anemia that is normocytic. (AMS is a rate limiting factor to safe extubation at this point) - RT asked to begin daytime PSV trials - ABG after 2 hours for initial SBT - continue stress dose steroids - trend CRP / procalcitonin as necessary to aid clinical decision making while on systemic steroids - follow BAL studies - reduce set TV to 350 ml's re: alkalosis - continue free water at 200 mls q4h - continue care as below otherwise; - Daily SAT and SBT assessment as tolerated - continue to wean supplemental oxygen for target O2 sat's > 92% acutely - VAP bundle addressed - continue lung protective strategies - continue bronchodilators with pulmonary hygiene per RT - wean per pulmonary driven protocols otherwise - continue accuchecks with glycemic control per SSI (While critically ill target blood glucose of 140-180 mg/dL; avoid hypoglycemia) - sedation prn for target RASS 0 to -1 - avoid nephrotoxins, renally dose all medications - continue to avoid benzodiazepine's, reduce the possibility of delirium - complete AB's per ID rec's - prn analgesia per CPOT score - Maintenance of sleep-wake cycle, avoid delirium - continue enteral nutritional support at goal rate as tolerated - G.I. & VTE prophylaxis with famotidine and heparin - PT/OT/ROM exercises - continue mobility protocols for pressure ulcer prophylaxis - Monitor hemodynamics closely - continue other care per attending / other consultants - discharge planning ongoing concurrently .... Re-evaluate in am & prn CONDITION: CRITICAL PROGNOSIS: GUARDED CODE STATUS: FULL CODE The high probability of a clinically significant, sudden or life-threatening det erioration of the [respiratory, cardiovascular & neurologic] system(s) required my full and direct attention, intervention and personal management. The aggregate critical care time was [31] minutes without overlap. Time includes spent on; [x] Data Review and interpretation [x] Patient assessment and monitoring of vital signs [x] Documentation [x] Medication orders and management Subjective Date of service: 01/30/20 Principal diagnosis: Septic Shock; S/P Cardiac Arrest; Ac. hypoxemic resp failure; UTI Interval history: Patient is seen today for: Severe sepsis with shock; S/P Cardiac Arrest; L. lung atelectasis / L. pleural effusion; Acute hypoxemic respiratory failure; Acute possibly on chronic encephalopathy; DM II; UTI; VTE Seen and examined at bedside; 24hour events reviewed; nursing and respiratory care staff consulted; no adverse overnight events reported to me; resting peacefully in bed; tolerated bedside SBT very well but AMS is persistent; remains on Levophed; no emesis or overt aspiration Objective Vital Signs - 12hr 01/30/20 01/30/20 01/30/20 01:15 01:30 01:45 Temperature Pulse Rate 91 H 100 H 103 H Respiratory 18 16 17 Rate Blood Pressure 102/61 113/60 113/63 O2 Sat by Pulse 100 100 100 Oximetry 01/30/20 01/30/20 01/30/20 02:00 02:15 02:31 Temperature Pulse Rate 101 H 114 H 109 H Respiratory 15 14 18 Rate Blood Pressure 106/52 106/52 102/73 O2 Sat by Pulse 100 100 Oximetry 01/30/20 01/30/20 01/30/20 02:45 03:01 03:15 Temperature Pulse Rate 102 H 97 H 99 H Respiratory 17 17 16 Rate Blood Pressure 122/68 118/65 128/69 O2 Sat by Pulse 100 100 100 Oximetry 01/30/20 01/30/20 01/30/20 03:24 03:30 03:45 Temperature 98.8 F Pulse Rate 93 H 94 H Respiratory 16 15 Rate Blood Pressure 121/66 120/75 O2 Sat by Pulse 100 100 Oximetry 01/30/20 01/30/20 01/30/20 04:00 04:06 04:15 Temperature Pulse Rate 101 H 100 H 89 Respiratory 18 15 Rate Blood Pressure 119/74 119/74 125/71 O2 Sat by Pulse 100 100 100 Oximetry 01/30/20 01/30/20 01/30/20 04:31 04:45 05:00 Temperature Pulse Rate 101 H 99 H 103 H Respiratory 15 15 16 Rate Blood Pressure 128/77 140/75 149/82 O2 Sat by Pulse 100 100 100 Oximetry 01/30/20 01/30/20 01/30/20 05:15 05:31 05:45 Temperature Pulse Rate 93 H 94 H 98 H Respiratory 16 17 16 Rate Blood Pressure 141/73 120/68 127/73 O2 Sat by Pulse 100 100 100 Oximetry 01/30/20 01/30/20 01/30/20 06:00 06:15 06:31 Temperature Pulse Rate 95 H 88 149 H Respiratory 15 16 21 Rate Blood Pressure 148/86 129/65 129/65 O2 Sat by Pulse 100 100 100 Oximetry 01/30/20 01/30/20 01/30/20 06:45 07:00 07:15 Temperature Pulse Rate 99 H 87 98 H Respiratory 16 16 17 Rate Blood Pressure 131/63 121/58 137/66 O2 Sat by Pulse 100 100 100 Oximetry 01/30/20 01/30/20 01/30/20 07:30 07:45 07:59 Temperature Pulse Rate 95 H 87 91 H Respiratory 15 16 Rate Blood Pressure 131/61 114/56 110/62 O2 Sat by Pulse 100 100 100 Oximetry 01/30/20 01/30/20 01/30/20 08:00 11:50 12:00 Temperature 97.4 F L Pulse Rate 87 63 Respiratory Rate Blood Pressure 114/56 O2 Sat by Pulse 100 Oximetry Constitutional: no acute distress, other (elderly looking female witrh mildly increased respiratory effort at rest on MVS) Eyes: non-icteric ENT: oropharynx moist, other (ETT 23 cm FLORENCIO) Neck: supple, no lymphadenopathy, no JVD Effort: mildly labored Ascultation: Bilateral: diminished breath sounds (bases L>R), rales (bases predominant) Percussion: Bilateral: not dull Cardiovascular: regular rate and rhythm Gastrointestinal: normoactive bowel sounds, soft, non-tender, non-distended Integumentary: decubitus ulcer (see [facility] notes) Extremities: no cyanosis, no edema, pulses normal Neurologic: pupils equal and round, unable to assess Psychiatric: other (Unable to assess re: AMS) CBC and BMP: 01/30/20 04:00 01/29/20 04:58 ABG, PT/INR, D-dimer: ABG ABG pH 7.485 pH Units (7.350-7.450) H 01/30/20 03:24 POC ABG pCO2 32.9 mmHg (32.0-48.0) 01/28/20 11:10 ABG pCO2 31.7 mm Hg 01/30/20 03:24 POC ABG pO2 67.2 mmHg (83-108) L 01/28/20 11:10 ABG pO2 102.0 mm Hg (80.0-90.0) H 01/30/20 03:24 POC ABG HCO3 21.2 01/28/20 11:10 ABG O2 Saturation 98.0 % (95.0-99.0) 01/30/20 03:24 PT/INR, D-dimer PT 18.4 Sec. (12.2-14.9) H 01/26/20 16:30 INR 1.50 (0.87-1.13) H 01/26/20 16:30 Abnormal lab findings: Abnormal Labs 01/08/20 01/08/20 01/08/20 16:29 16:29 16:29 WBC 13.5 H RBC Hgb Hct MCHC RDW 15.5 H Plt Count Lymph % (Auto) Lymph # Seg Neutrophils % Seg Neuts % (Manual) 85.0 H Lymphocytes % (Manual) 11.0 L Seg Neutrophils # Seg Neutrophils # Man 11.5 H Nucleated RBC % Lymphocytes # (Manual) PT INR Heparin Anti-Xa Level POC ABG pO2 ABG pH ABG Hemoglobin ABG Oxyhemoglobin ABG pO2 ABG HCO3 ABG O2 Saturation ABG Base Excess Sodium 161 H* Potassium Chloride 125.5 H Carbon Dioxide 20 L BUN 30 H Creatinine Glucose 115 H POC Glucose Lactic Acid 2.20 H* Calcium 7.9 L AST 48 H Total Protein Albumin 2.5 L C-Reactive Protein Urine WBC (Auto) 01/08/20 01/08/20 01/08/20 19:02 23:30 Unknown WBC RBC Hgb Hct MCHC RDW Plt Count Lymph % (Auto) Lymph # Seg Neutrophils % Seg Neuts % (Manual) Lymphocytes % (Manual) Seg Neutrophils # Seg Neutrophils # Man Nucleated RBC % Lymphocytes # (Manual) PT INR Heparin Anti-Xa Level POC ABG pO2 ABG pH ABG Hemoglobin ABG Oxyhemoglobin ABG pO2 ABG HCO3 ABG O2 Saturation ABG Base Excess Sodium Potassium Chloride Carbon Dioxide BUN Creatinine Glucose POC Glucose Lactic Acid 2.10 H* 2.50 H* Calcium AST Total Protein Albumin C-Reactive Protein Urine WBC (Auto) 11.0 H 01/09/20 01/09/20 01/09/20 00:19 00:54 05:52 WBC 13.5 H RBC 3.02 L Hgb 9.0 L D Hct 27.4 L D MCHC RDW Plt Count Lymph % (Auto) 9.1 L Lymph # Seg Neutrophils % 87.6 H Seg Neuts % (Manual) Lymphocytes % (Manual) Seg Neutrophils # 11.8 H Seg Neutrophils # Man Nucleated RBC % Lymphocytes # (Manual) PT INR Heparin Anti-Xa Level POC ABG pO2 ABG pH ABG Hemoglobin ABG Oxyhemoglobin ABG pO2 ABG HCO3 ABG O2 Saturation ABG Base Excess Sodium Potassium Chloride Carbon Dioxide BUN Creatinine Glucose POC Glucose 118 H 116 H Lactic Acid Calcium AST Total Protein Albumin C-Reactive Protein Urine WBC (Auto) 01/09/20 01/09/20 01/09/20 05:52 05:52 13:03 WBC RBC Hgb Hct MCHC RDW Plt Count Lymph % (Auto) Lymph # Seg Neutrophils % Seg Neuts % (Manual) Lymphocytes % (Manual) Seg Neutrophils # Seg Neutrophils # Man Nucleated RBC % Lymphocytes # (Manual) PT 17.1 H INR 1.36 H Heparin Anti-Xa Level POC ABG pO2 ABG pH ABG Hemoglobin ABG Oxyhemoglobin ABG pO2 ABG HCO3 ABG O2 Saturation ABG Base Excess Sodium 162 H* Potassium 3.0 L D Chloride 128.3 H Carbon Dioxide BUN 23 H Creatinine Glucose POC Glucose 55 L Lactic Acid Calcium 7.6 L AST Total Protein Albumin C-Reactive Protein Urine WBC (Auto) 01/09/20 01/09/20 01/09/20 21:22 21:50 22:28 WBC RBC Hgb Hct MCHC RDW Plt Count Lymph % (Auto) Lymph # Seg Neutrophils % Seg Neuts % (Manual) Lymphocytes % (Manual) Seg Neutrophils # Seg Neutrophils # Man Nucleated RBC % Lymphocytes # (Manual) PT INR Heparin Anti-Xa Level POC ABG pO2 ABG pH ABG Hemoglobin ABG Oxyhemoglobin ABG pO2 ABG HCO3 ABG O2 Saturation ABG Base Excess Sodium 159 H Potassium 5.1 H D Chloride 128.5 H Carbon Dioxide 16 L BUN 23 H Creatinine Glucose 51 L POC Glucose 52 L 106 H Lactic Acid Calcium 8.2 L AST Total Protein Albumin C-Reactive Protein Urine WBC (Auto) 01/10/20 01/10/20 01/10/20 05:23 09:11 10:10 WBC 13.4 H RBC Hgb Hct MCHC RDW Plt Count Lymph % (Auto) 7.2 L Lymph # 1.0 L Seg Neutrophils % 90.0 H Seg Neuts % (Manual) Lymphocytes % (Manual) Seg Neutrophils # 12.0 H Seg Neutrophils # Man Nucleated RBC % Lymphocytes # (Manual) PT INR Heparin Anti-Xa Level POC ABG pO2 ABG pH ABG Hemoglobin ABG Oxyhemoglobin ABG pO2 ABG HCO3 ABG O2 Saturation ABG Base Excess Sodium 155 H Potassium Chloride 122.8 H Carbon Dioxide 21 L BUN 19 H Creatinine Glucose POC Glucose 120 H Lactic Acid Calcium AST Total Protein Albumin C-Reactive Protein Urine WBC (Auto) 01/10/20 01/10/20 01/10/20 11:47 11:57 17:09 WBC RBC Hgb Hct MCHC RDW Plt Count Lymph % (Auto) Lymph # Seg Neutrophils % Seg Neuts % (Manual) Lymphocytes % (Manual) Seg Neutrophils # Seg Neutrophils # Man Nucleated RBC % Lymphocytes # (Manual) PT INR Heparin Anti-Xa Level POC ABG pO2 ABG pH ABG Hemoglobin ABG Oxyhemoglobin ABG pO2 ABG HCO3 ABG O2 Saturation ABG Base Excess Sodium 153 H Potassium Chloride 118.3 H Carbon Dioxide 20 L BUN 19 H Creatinine Glucose 113 H POC Glucose 142 H 125 H Lactic Acid Calcium AST Total Protein Albumin C-Reactive Protein Urine WBC (Auto) 01/10/20 01/10/20 01/11/20 20:27 22:00 00:45 WBC RBC Hgb Hct MCHC RDW Plt Count Lymph % (Auto) Lymph # Seg Neutrophils % Seg Neuts % (Manual) Lymphocytes % (Manual) Seg Neutrophils # Seg Neutrophils # Man Nucleated RBC % Lymphocytes # (Manual) PT INR Heparin Anti-Xa Level POC ABG pO2 ABG pH ABG Hemoglobin ABG Oxyhemoglobin ABG pO2 ABG HCO3 ABG O2 Saturation ABG Base Excess Sodium 153 H 154 H Potassium 3.3 L 3.2 L Chloride 117.0 H 118.9 H Carbon Dioxide 20 L BUN Creatinine Glucose POC Glucose 136 H Lactic Acid Calcium 8.3 L 8.0 L AST Total Protein Albumin C-Reactive Protein Urine WBC (Auto) 01/11/20 01/11/20 01/11/20 07:06 08:03 11:54 WBC RBC Hgb Hct MCHC RDW Plt Count Lymph % (Auto) Lymph # Seg Neutrophils % Seg Neuts % (Manual) Lymphocytes % (Manual) Seg Neutrophils # Seg Neutrophils # Man Nucleated RBC % Lymphocytes # (Manual) PT INR Heparin Anti-Xa Level POC ABG pO2 ABG pH ABG Hemoglobin ABG Oxyhemoglobin ABG pO2 ABG HCO3 ABG O2 Saturation ABG Base Excess Sodium 151 H Potassium Chloride 118.7 H Carbon Dioxide 21 L BUN Creatinine Glucose 107 H POC Glucose 118 H 164 H Lactic Acid Calcium 8.3 L AST Total Protein Albumin C-Reactive Protein Urine WBC (Auto) 01/11/20 01/12/20 01/12/20 16:28 00:19 05:40 WBC RBC Hgb Hct MCHC RDW Plt Count Lymph % (Auto) Lymph # Seg Neutrophils % Seg Neuts % (Manual) Lymphocytes % (Manual) Seg Neutrophils # Seg Neutrophils # Man Nucleated RBC % Lymphocytes # (Manual) PT INR Heparin Anti-Xa Level POC ABG pO2 ABG pH ABG Hemoglobin ABG Oxyhemoglobin ABG pO2 ABG HCO3 ABG O2 Saturation ABG Base Excess Sodium 148 H Potassium Chloride 111.6 H Carbon Dioxide 19 L BUN Creatinine Glucose 128 H POC Glucose 132 H 179 H Lactic Acid Calcium 8.2 L AST Total Protein Albumin C-Reactive Protein Urine WBC (Auto) 01/12/20 01/12/20 01/12/20 06:17 11:37 17:21 WBC RBC Hgb Hct MCHC RDW Plt Count Lymph % (Auto) Lymph # Seg Neutrophils % Seg Neuts % (Manual) Lymphocytes % (Manual) Seg Neutrophils # Seg Neutrophils # Man Nucleated RBC % Lymphocytes # (Manual) PT INR Heparin Anti-Xa Level POC ABG pO2 ABG pH ABG Hemoglobin ABG Oxyhemoglobin ABG pO2 ABG HCO3 ABG O2 Saturation ABG Base Excess Sodium Potassium Chloride Carbon Dioxide BUN Creatinine Glucose POC Glucose 140 H 142 H 133 H Lactic Acid Calcium AST Total Protein Albumin C-Reactive Protein Urine WBC (Auto) 01/12/20 01/13/20 01/13/20 23:14 05:26 07:00 WBC RBC Hgb Hct MCHC RDW Plt Count Lymph % (Auto) Lymph # Seg Neutrophils % Seg Neuts % (Manual) Lymphocytes % (Manual) Seg Neutrophils # Seg Neutrophils # Man Nucleated RBC % Lymphocytes # (Manual) PT INR Heparin Anti-Xa Level POC ABG pO2 ABG pH ABG Hemoglobin ABG Oxyhemoglobin ABG pO2 ABG HCO3 ABG O2 Saturation ABG Base Excess Sodium Potassium Chloride 110.0 H Carbon Dioxide BUN Creatinine Glucose 139 H POC Glucose 135 H 162 H Lactic Acid Calcium 7.8 L AST Total Protein Albumin C-Reactive Protein Urine WBC (Auto) 01/13/20 01/13/20 01/13/20 12:14 17:52 21:40 WBC RBC Hgb Hct MCHC RDW Plt Count Lymph % (Auto) Lymph # Seg Neutrophils % Seg Neuts % (Manual) Lymphocytes % (Manual) Seg Neutrophils # Seg Neutrophils # Man Nucleated RBC % Lymphocytes # (Manual) PT INR Heparin Anti-Xa Level POC ABG pO2 ABG pH ABG Hemoglobin ABG Oxyhemoglobin ABG pO2 ABG HCO3 ABG O2 Saturation ABG Base Excess Sodium Potassium Chloride Carbon Dioxide BUN Creatinine Glucose POC Glucose 205 H 172 H 186 H Lactic Acid Calcium AST Total Protein Albumin C-Reactive Protein Urine WBC (Auto) 01/14/20 01/14/20 01/14/20 04:28 11:01 11:01 WBC 14.8 H RBC 3.20 L Hgb 9.5 L Hct 28.0 L MCHC RDW Plt Count Lymph % (Auto) Lymph # Seg Neutrophils % Seg Neuts % (Manual) Lymphocytes % (Manual) Seg Neutrophils # Seg Neutrophils # Man Nucleated RBC % Lymphocytes # (Manual) PT INR Heparin Anti-Xa Level POC ABG pO2 ABG pH ABG Hemoglobin ABG Oxyhemoglobin ABG pO2 ABG HCO3 ABG O2 Saturation ABG Base Excess Sodium Potassium 3.2 L Chloride Carbon Dioxide BUN Creatinine 0.4 L Glucose POC Glucose 115 H Lactic Acid Calcium 8.0 L AST Total Protein Albumin C-Reactive Protein Urine WBC (Auto) 01/14/20 01/14/20 01/14/20 11:01 16:33 22:32 WBC RBC Hgb Hct MCHC RDW Plt Count Lymph % (Auto) Lymph # Seg Neutrophils % Seg Neuts % (Manual) Lymphocytes % (Manual) Seg Neutrophils # Seg Neutrophils # Man Nucleated RBC % Lymphocytes # (Manual) PT 15.8 H INR 1.23 H Heparin Anti-Xa Level POC ABG pO2 ABG pH ABG Hemoglobin ABG Oxyhemoglobin ABG pO2 ABG HCO3 ABG O2 Saturation ABG Base Excess Sodium Potassium Chloride Carbon Dioxide BUN Creatinine Glucose POC Glucose 58 L 188 H Lactic Acid Calcium AST Total Protein Albumin C-Reactive Protein Urine WBC (Auto) 01/15/20 01/15/20 01/15/20 05:35 06:19 17:17 WBC RBC Hgb Hct MCHC RDW Plt Count Lymph % (Auto) Lymph # Seg Neutrophils % Seg Neuts % (Manual) Lymphocytes % (Manual) Seg Neutrophils # Seg Neutrophils # Man Nucleated RBC % Lymphocytes # (Manual) PT INR Heparin Anti-Xa Level POC ABG pO2 ABG pH ABG Hemoglobin ABG Oxyhemoglobin ABG pO2 ABG HCO3 ABG O2 Saturation ABG Base Excess Sodium Potassium Chloride Carbon Dioxide BUN Creatinine 0.5 L Glucose 104 H POC Glucose 106 H 183 H Lactic Acid Calcium 7.8 L AST Total Protein Albumin C-Reactive Protein Urine WBC (Auto) 01/15/20 01/16/20 01/16/20 22:29 05:35 05:59 WBC 14.7 H RBC 3.04 L Hgb 9.0 L Hct 27.0 L MCHC RDW Plt Count Lymph % (Auto) 9.1 L Lymph # Seg Neutrophils % 87.3 H Seg Neuts % (Manual) Lymphocytes % (Manual) Seg Neutrophils # 12.9 H Seg Neutrophils # Man Nucleated RBC % Lymphocytes # (Manual) PT INR Heparin Anti-Xa Level POC ABG pO2 ABG pH ABG Hemoglobin ABG Oxyhemoglobin ABG pO2 ABG HCO3 ABG O2 Saturation ABG Base Excess Sodium Potassium Chloride Carbon Dioxide BUN Creatinine Glucose POC Glucose 228 H 130 H Lactic Acid Calcium AST Total Protein Albumin C-Reactive Protein Urine WBC (Auto) 01/16/20 01/16/20 01/16/20 09:52 12:49 17:30 WBC RBC Hgb Hct MCHC RDW Plt Count Lymph % (Auto) Lymph # Seg Neutrophils % Seg Neuts % (Manual) Lymphocytes % (Manual) Seg Neutrophils # Seg Neutrophils # Man Nucleated RBC % Lymphocytes # (Manual) PT INR Heparin Anti-Xa Level POC ABG pO2 ABG pH ABG Hemoglobin ABG Oxyhemoglobin ABG pO2 ABG HCO3 ABG O2 Saturation ABG Base Excess Sodium Potassium Chloride Carbon Dioxide BUN Creatinine Glucose POC Glucose 122 H 142 H 192 H Lactic Acid Calcium AST Total Protein Albumin C-Reactive Protein Urine WBC (Auto) 01/16/20 01/17/20 01/17/20 23:01 08:36 08:36 WBC 12.7 H RBC 2.98 L Hgb 8.9 L Hct 26.4 L MCHC RDW Plt Count Lymph % (Auto) 8.8 L Lymph # 1.1 L Seg Neutrophils % 86.7 H Seg Neuts % (Manual) Lymphocytes % (Manual) Seg Neutrophils # 11.0 H Seg Neutrophils # Man Nucleated RBC % Lymphocytes # (Manual) PT INR Heparin Anti-Xa Level POC ABG pO2 ABG pH ABG Hemoglobin ABG Oxyhemoglobin ABG pO2 ABG HCO3 ABG O2 Saturation ABG Base Excess Sodium Potassium 3.3 L D Chloride Carbon Dioxide BUN Creatinine 0.4 L Glucose POC Glucose 141 H Lactic Acid Calcium 8.1 L AST Total Protein 4.6 L Albumin 1.6 L C-Reactive Protein Urine WBC (Auto) 01/17/20 01/17/20 01/18/20 11:43 23:56 06:27 WBC RBC Hgb Hct MCHC RDW Plt Count Lymph % (Auto) Lymph # Seg Neutrophils % Seg Neuts % (Manual) Lymphocytes % (Manual) Seg Neutrophils # Seg Neutrophils # Man Nucleated RBC % Lymphocytes # (Manual) PT INR Heparin Anti-Xa Level POC ABG pO2 ABG pH ABG Hemoglobin ABG Oxyhemoglobin ABG pO2 ABG HCO3 ABG O2 Saturation ABG Base Excess Sodium Potassium Chloride Carbon Dioxide BUN Creatinine Glucose POC Glucose 137 H 215 H 122 H Lactic Acid Calcium AST Total Protein Albumin C-Reactive Protein Urine WBC (Auto) 01/18/20 01/18/20 01/18/20 07:31 07:31 11:39 WBC 12.1 H RBC 3.23 L Hgb 9.7 L Hct 28.7 L MCHC RDW Plt Count Lymph % (Auto) 9.2 L Lymph # 1.1 L Seg Neutrophils % 85.0 H Seg Neuts % (Manual) Lymphocytes % (Manual) Seg Neutrophils # 10.3 H Seg Neutrophils # Man Nucleated RBC % Lymphocytes # (Manual) PT INR Heparin Anti-Xa Level POC ABG pO2 ABG pH ABG Hemoglobin ABG Oxyhemoglobin ABG pO2 ABG HCO3 ABG O2 Saturation ABG Base Excess Sodium Potassium Chloride Carbon Dioxide BUN Creatinine 0.4 L Glucose 108 H POC Glucose 172 H Lactic Acid Calcium AST Total Protein 5.3 L Albumin 2.1 L C-Reactive Protein Urine WBC (Auto) 01/18/20 01/19/20 01/19/20 18:22 00:15 11:30 WBC RBC Hgb Hct MCHC RDW Plt Count Lymph % (Auto) Lymph # Seg Neutrophils % Seg Neuts % (Manual) Lymphocytes % (Manual) Seg Neutrophils # Seg Neutrophils # Man Nucleated RBC % Lymphocytes # (Manual) PT INR Heparin Anti-Xa Level POC ABG pO2 ABG pH ABG Hemoglobin ABG Oxyhemoglobin ABG pO2 ABG HCO3 ABG O2 Saturation ABG Base Excess Sodium Potassium Chloride Carbon Dioxide BUN Creatinine Glucose POC Glucose 119 H 135 H 163 H Lactic Acid Calcium AST Total Protein Albumin C-Reactive Protein Urine WBC (Auto) 01/19/20 01/19/20 01/20/20 17:44 22:59 03:44 WBC 11.1 H RBC 2.77 L Hgb 8.4 L Hct 25.0 L MCHC RDW Plt Count Lymph % (Auto) Lymph # Seg Neutrophils % 74.6 H Seg Neuts % (Manual) Lymphocytes % (Manual) Seg Neutrophils # 8.3 H Seg Neutrophils # Man Nucleated RBC % Lymphocytes # (Manual) PT INR Heparin Anti-Xa Level POC ABG pO2 ABG pH ABG Hemoglobin ABG Oxyhemoglobin ABG pO2 ABG HCO3 ABG O2 Saturation ABG Base Excess Sodium Potassium Chloride Carbon Dioxide BUN Creatinine Glucose POC Glucose 161 H 182 H Lactic Acid Calcium AST Total Protein Albumin C-Reactive Protein Urine WBC (Auto) 01/20/20 01/21/20 01/21/20 03:44 00:07 05:51 WBC RBC 2.84 L Hgb 8.6 L Hct 25.5 L MCHC RDW Plt Count 463 H Lymph % (Auto) Lymph # Seg Neutrophils % 76.9 H Seg Neuts % (Manual) Lymphocytes % (Manual) Seg Neutrophils # 7.8 H Seg Neutrophils # Man Nucleated RBC % Lymphocytes # (Manual) PT INR Heparin Anti-Xa Level POC ABG pO2 ABG pH ABG Hemoglobin ABG Oxyhemoglobin ABG pO2 ABG HCO3 ABG O2 Saturation ABG Base Excess Sodium Potassium Chloride Carbon Dioxide BUN Creatinine 0.4 L Glucose POC Glucose 68 L Lactic Acid Calcium 7.9 L AST Total Protein 4.7 L Albumin 1.9 L C-Reactive Protein Urine WBC (Auto) 01/21/20 01/21/20 01/21/20 05:51 05:58 11:25 WBC RBC Hgb Hct MCHC RDW Plt Count Lymph % (Auto) Lymph # Seg Neutrophils % Seg Neuts % (Manual) Lymphocytes % (Manual) Seg Neutrophils # Seg Neutrophils # Man Nucleated RBC % Lymphocytes # (Manual) PT INR Heparin Anti-Xa Level POC ABG pO2 ABG pH ABG Hemoglobin ABG Oxyhemoglobin ABG pO2 ABG HCO3 ABG O2 Saturation ABG Base Excess Sodium Potassium Chloride Carbon Dioxide 20 L BUN Creatinine 0.5 L Glucose 130 H POC Glucose 185 H 163 H Lactic Acid Calcium 7.6 L AST Total Protein 5.0 L Albumin 1.9 L C-Reactive Protein Urine WBC (Auto) 01/21/20 01/21/20 01/22/20 16:22 21:17 01:28 WBC RBC 2.60 L Hgb 8.0 L Hct 23.3 L MCHC RDW Plt Count Lymph % (Auto) Lymph # Seg Neutrophils % 74.8 H Seg Neuts % (Manual) Lymphocytes % (Manual) Seg Neutrophils # Seg Neutrophils # Man Nucleated RBC % Lymphocytes # (Manual) PT INR Heparin Anti-Xa Level POC ABG pO2 ABG pH ABG Hemoglobin ABG Oxyhemoglobin ABG pO2 ABG HCO3 ABG O2 Saturation ABG Base Excess Sodium Potassium Chloride Carbon Dioxide BUN Creatinine Glucose POC Glucose 177 H 67 L Lactic Acid Calcium AST Total Protein Albumin C-Reactive Protein Urine WBC (Auto) 01/22/20 01/22/20 01/22/20 01:28 01:28 12:06 WBC RBC Hgb Hct MCHC RDW Plt Count Lymph % (Auto) Lymph # Seg Neutrophils % Seg Neuts % (Manual) Lymphocytes % (Manual) Seg Neutrophils # Seg Neutrophils # Man Nucleated RBC % Lymphocytes # (Manual) PT INR Heparin Anti-Xa Level POC ABG pO2 ABG pH ABG Hemoglobin ABG Oxyhemoglobin ABG pO2 ABG HCO3 ABG O2 Saturation ABG Base Excess Sodium Potassium Chloride 107.6 H Carbon Dioxide BUN Creatinine 0.4 L Glucose 152 H POC Glucose 203 H 140 H Lactic Acid Calcium 7.5 L AST Total Protein 4.0 L Albumin 2.0 L C-Reactive Protein Urine WBC (Auto) 01/22/20 01/22/20 01/23/20 16:24 22:55 06:10 WBC RBC 2.68 L Hgb 8.6 L Hct 24.1 L MCHC 36 H RDW Plt Count Lymph % (Auto) Lymph # Seg Neutrophils % Seg Neuts % (Manual) 71.0 H Lymphocytes % (Manual) Seg Neutrophils # Seg Neutrophils # Man Nucleated RBC % Lymphocytes # (Manual) PT INR Heparin Anti-Xa Level POC ABG pO2 ABG pH ABG Hemoglobin ABG Oxyhemoglobin ABG pO2 ABG HCO3 ABG O2 Saturation ABG Base Excess Sodium Potassium Chloride Carbon Dioxide BUN Creatinine Glucose POC Glucose 205 H 196 H Lactic Acid Calcium AST Total Protein Albumin C-Reactive Protein Urine WBC (Auto) 01/23/20 01/23/20 01/23/20 06:10 07:35 11:59 WBC RBC Hgb Hct MCHC RDW Plt Count Lymph % (Auto) Lymph # Seg Neutrophils % Seg Neuts % (Manual) Lymphocytes % (Manual) Seg Neutrophils # Seg Neutrophils # Man Nucleated RBC % Lymphocytes # (Manual) PT INR Heparin Anti-Xa Level POC ABG pO2 ABG pH ABG Hemoglobin ABG Oxyhemoglobin ABG pO2 ABG HCO3 ABG O2 Saturation ABG Base Excess Sodium Potassium Chloride 108.8 H Carbon Dioxide BUN Creatinine 0.4 L Glucose 105 H POC Glucose 111 H 123 H Lactic Acid Calcium 8.0 L AST Total Protein 4.9 L D Albumin 2.0 L C-Reactive Protein Urine WBC (Auto) 01/23/20 01/24/20 01/24/20 22:45 11:24 16:41 WBC RBC Hgb Hct MCHC RDW Plt Count Lymph % (Auto) Lymph # Seg Neutrophils % Seg Neuts % (Manual) Lymphocytes % (Manual) Seg Neutrophils # Seg Neutrophils # Man Nucleated RBC % Lymphocytes # (Manual) PT INR Heparin Anti-Xa Level POC ABG pO2 ABG pH ABG Hemoglobin ABG Oxyhemoglobin ABG pO2 ABG HCO3 ABG O2 Saturation ABG Base Excess Sodium Potassium Chloride Carbon Dioxide BUN Creatinine Glucose POC Glucose 180 H 182 H 177 H Lactic Acid Calcium AST Total Protein Albumin C-Reactive Protein Urine WBC (Auto) 01/24/20 01/25/20 01/25/20 23:11 07:12 11:35 WBC RBC Hgb Hct MCHC RDW Plt Count Lymph % (Auto) Lymph # Seg Neutrophils % Seg Neuts % (Manual) Lymphocytes % (Manual) Seg Neutrophils # Seg Neutrophils # Man Nucleated RBC % Lymphocytes # (Manual) PT INR Heparin Anti-Xa Level POC ABG pO2 ABG pH ABG Hemoglobin ABG Oxyhemoglobin ABG pO2 ABG HCO3 ABG O2 Saturation ABG Base Excess Sodium Potassium Chloride Carbon Dioxide BUN Creatinine Glucose POC Glucose 142 H 135 H 142 H Lactic Acid Calcium AST Total Protein Albumin C-Reactive Protein Urine WBC (Auto) 09/20/20 09/21/20 09/21/20 16:33 00:04 11:35 WBC RBC Hgb Hct MCHC RDW Plt Count Lymph % (Auto) Lymph # Seg Neutrophils % Seg Neuts % (Manual) Lymphocytes % (Manual) Seg Neutrophils # Seg Neutrophils # Man Nucleated RBC % Lymphocytes # (Manual) PT INR Heparin Anti-Xa Level POC ABG pO2 ABG pH ABG Hemoglobin ABG Oxyhemoglobin ABG pO2 ABG HCO3 ABG O2 Saturation ABG Base Excess Sodium Potassium Chloride Carbon Dioxide BUN Creatinine Glucose POC Glucose 247 H 233 H 200 H Lactic Acid Calcium AST Total Protein Albumin C-Reactive Protein Urine WBC (Auto) 01/26/20 01/26/20 01/26/20 16:30 16:30 17:19 WBC RBC Hgb 7.4 L Hct 22.0 L MCHC RDW Plt Count Lymph % (Auto) Lymph # Seg Neutrophils % Seg Neuts % (Manual) Lymphocytes % (Manual) Seg Neutrophils # Seg Neutrophils # Man Nucleated RBC % Lymphocytes # (Manual) PT 18.4 H INR 1.50 H Heparin Anti-Xa Level POC ABG pO2 ABG pH ABG Hemoglobin ABG Oxyhemoglobin ABG pO2 ABG HCO3 ABG O2 Saturation ABG Base Excess Sodium Potassium Chloride Carbon Dioxide BUN Creatinine Glucose POC Glucose 67 L Lactic Acid Calcium AST Total Protein Albumin C-Reactive Protein Urine WBC (Auto) 01/26/20 01/26/20 01/27/20 20:24 21:32 00:16 WBC RBC Hgb Hct MCHC RDW Plt Count Lymph % (Auto) Lymph # Seg Neutrophils % Seg Neuts % (Manual) Lymphocytes % (Manual) Seg Neutrophils # Seg Neutrophils # Man Nucleated RBC % Lymphocytes # (Manual) PT INR Heparin Anti-Xa Level POC ABG pO2 51.8 L ABG pH ABG Hemoglobin 8.5 L ABG Oxyhemoglobin 84.7 L ABG pO2 ABG HCO3 ABG O2 Saturation ABG Base Excess Sodium Potassium Chloride Carbon Dioxide BUN Creatinine Glucose POC Glucose 162 H 141 H Lactic Acid Calcium AST Total Protein Albumin C-Reactive Protein Urine WBC (Auto) 01/27/20 01/27/20 01/27/20 01:42 02:18 05:57 WBC RBC Hgb Hct MCHC RDW Plt Count Lymph % (Auto) Lymph # Seg Neutrophils % Seg Neuts % (Manual) Lymphocytes % (Manual) Seg Neutrophils # Seg Neutrophils # Man Nucleated RBC % Lymphocytes # (Manual) PT INR Heparin Anti-Xa Level 2.00 H POC ABG pO2 ABG pH ABG Hemoglobin ABG Oxyhemoglobin ABG pO2 ABG HCO3 ABG O2 Saturation ABG Base Excess Sodium Potassium Chloride Carbon Dioxide BUN Creatinine Glucose POC Glucose 183 H 124 H Lactic Acid Calcium AST Total Protein Albumin C-Reactive Protein Urine WBC (Auto) 01/27/20 01/27/20 01/27/20 06:30 06:30 12:23 WBC RBC 2.75 L Hgb 8.4 L Hct 24.9 L MCHC RDW 16.0 H Plt Count 474 H Lymph % (Auto) 12.7 L Lymph # Seg Neutrophils % 83.2 H Seg Neuts % (Manual) Lymphocytes % (Manual) Seg Neutrophils # 8.4 H Seg Neutrophils # Man Nucleated RBC % Lymphocytes # (Manual) PT INR Heparin Anti-Xa Level POC ABG pO2 ABG pH ABG Hemoglobin ABG Oxyhemoglobin ABG pO2 ABG HCO3 ABG O2 Saturation ABG Base Excess Sodium Potassium 3.5 L Chloride 110.2 H Carbon Dioxide BUN Creatinine 0.4 L Glucose 101 H POC Glucose 126 H Lactic Acid Calcium 7.8 L AST Total Protein Albumin C-Reactive Protein Urine WBC (Auto) 01/27/20 01/27/20 01/28/20 17:31 23:40 00:00 WBC RBC Hgb Hct MCHC RDW Plt Count Lymph % (Auto) Lymph # Seg Neutrophils % Seg Neuts % (Manual) Lymphocytes % (Manual) Seg Neutrophils # Seg Neutrophils # Man Nucleated RBC % Lymphocytes # (Manual) PT INR Heparin Anti-Xa Level 2.00 H POC ABG pO2 ABG pH ABG Hemoglobin ABG Oxyhemoglobin ABG pO2 ABG HCO3 ABG O2 Saturation ABG Base Excess Sodium Potassium Chloride Carbon Dioxide BUN Creatinine Glucose POC Glucose 133 H 136 H Lactic Acid Calcium AST Total Protein Albumin C-Reactive Protein Urine WBC (Auto) 01/28/20 01/28/20 01/28/20 04:26 04:26 05:35 WBC RBC Hgb 9.6 L Hct 28.5 L MCHC RDW Plt Count 508 H Lymph % (Auto) Lymph # Seg Neutrophils % Seg Neuts % (Manual) Lymphocytes % (Manual) Seg Neutrophils # Seg Neutrophils # Man Nucleated RBC % Lymphocytes # (Manual) PT INR Heparin Anti-Xa Level POC ABG pO2 ABG pH ABG Hemoglobin ABG Oxyhemoglobin ABG pO2 ABG HCO3 ABG O2 Saturation ABG Base Excess Sodium Potassium Chloride Carbon Dioxide 19 L BUN 20 H Creatinine 0.5 L Glucose 103 H POC Glucose 135 H Lactic Acid Calcium 7.9 L AST Total Protein Albumin C-Reactive Protein Urine WBC (Auto) 01/28/20 01/28/20 01/28/20 08:50 11:10 11:51 WBC RBC Hgb Hct MCHC RDW Plt Count Lymph % (Auto) Lymph # Seg Neutrophils % Seg Neuts % (Manual) Lymphocytes % (Manual) Seg Neutrophils # Seg Neutrophils # Man Nucleated RBC % Lymphocytes # (Manual) PT INR Heparin Anti-Xa Level 0.74 H POC ABG pO2 67.2 L ABG pH ABG Hemoglobin 9.3 L ABG Oxyhemoglobin ABG pO2 ABG HCO3 ABG O2 Saturation ABG Base Excess Sodium Potassium Chloride Carbon Dioxide BUN Creatinine Glucose POC Glucose 160 H Lactic Acid Calcium AST Total Protein Albumin C-Reactive Protein Urine WBC (Auto) 01/28/20 01/28/20 01/29/20 17:19 23:53 03:52 WBC RBC Hgb Hct MCHC RDW Plt Count Lymph % (Auto) Lymph # Seg Neutrophils % Seg Neuts % (Manual) Lymphocytes % (Manual) Seg Neutrophils # Seg Neutrophils # Man Nucleated RBC % Lymphocytes # (Manual) PT INR Heparin Anti-Xa Level POC ABG pO2 ABG pH 7.510 H ABG Hemoglobin 7.3 L ABG Oxyhemoglobin ABG pO2 357.0 H ABG HCO3 19.6 L ABG O2 Saturation 99.6 H ABG Base Excess -2.9 L Sodium Potassium Chloride Carbon Dioxide BUN Creatinine Glucose POC Glucose 177 H 142 H Lactic Acid Calcium AST Total Protein Albumin C-Reactive Protein Urine WBC (Auto) 01/29/20 01/29/20 01/29/20 04:58 04:58 06:01 WBC 13.1 H RBC 2.75 L Hgb 8.6 L Hct 25.6 L MCHC RDW 17.7 H Plt Count Lymph % (Auto) Lymph # Seg Neutrophils % Seg Neuts % (Manual) 91.0 H Lymphocytes % (Manual) 6.0 L Seg Neutrophils # Seg Neutrophils # Man 11.9 H Nucleated RBC % 1.0 H Lymphocytes # (Manual) 0.8 L PT INR Heparin Anti-Xa Level POC ABG pO2 ABG pH ABG Hemoglobin ABG Oxyhemoglobin ABG pO2 ABG HCO3 ABG O2 Saturation ABG Base Excess Sodium 148 H Potassium 3.5 L D Chloride 113.2 H Carbon Dioxide 21 L BUN 20 H Creatinine Glucose 137 H POC Glucose 167 H Lactic Acid Calcium 8.1 L AST Total Protein Albumin C-Reactive Protein Urine WBC (Auto) 01/29/20 01/29/20 01/29/20 11:45 17:52 23:49 WBC RBC Hgb Hct MCHC RDW Plt Count Lymph % (Auto) Lymph # Seg Neutrophils % Seg Neuts % (Manual) Lymphocytes % (Manual) Seg Neutrophils # Seg Neutrophils # Man Nucleated RBC % Lymphocytes # (Manual) PT INR Heparin Anti-Xa Level POC ABG pO2 ABG pH ABG Hemoglobin ABG Oxyhemoglobin ABG pO2 ABG HCO3 ABG O2 Saturation ABG Base Excess Sodium Potassium Chloride Carbon Dioxide BUN Creatinine Glucose POC Glucose 185 H 226 H 141 H Lactic Acid Calcium AST Total Protein Albumin C-Reactive Protein Urine WBC (Auto) 01/29/20 01/30/20 01/30/20 Unknown 03:24 04:00 WBC RBC Hgb 7.8 L Hct 23.5 L MCHC RDW Plt Count Lymph % (Auto) Lymph # Seg Neutrophils % Seg Neuts % (Manual) Lymphocytes % (Manual) Seg Neutrophils # Seg Neutrophils # Man Nucleated RBC % Lymphocytes # (Manual) PT INR Heparin Anti-Xa Level POC ABG pO2 ABG pH 7.485 H ABG Hemoglobin 6.7 L ABG Oxyhemoglobin ABG pO2 102.0 H ABG HCO3 ABG O2 Saturation ABG Base Excess Sodium Potassium Chloride Carbon Dioxide BUN Creatinine Glucose POC Glucose Lactic Acid Calcium AST Total Protein Albumin C-Reactive Protein 14.80 H Urine WBC (Auto) 01/30/20 01/30/20 05:50 11:15 WBC RBC Hgb Hct MCHC RDW Plt Count Lymph % (Auto) Lymph # Seg Neutrophils % Seg Neuts % (Manual) Lymphocytes % (Manual) Seg Neutrophils # Seg Neutrophils # Man Nucleated RBC % Lymphocytes # (Manual) PT INR Heparin Anti-Xa Level POC ABG pO2 ABG pH ABG Hemoglobin ABG Oxyhemoglobin ABG pO2 ABG HCO3 ABG O2 Saturation ABG Base Excess Sodium Potassium Chloride Carbon Dioxide BUN Creatinine Glucose POC Glucose 122 H 207 H Lactic Acid Calcium AST Total Protein Albumin C-Reactive Protein Urine WBC (Auto) Chest x-ray: image reviewed (small r. pleural effusion) Allied health notes reviewed: nursing
[2020-01-30 17:24] LABS: ABG Base Excess 2.8 mmol/L (-2.0-3.0); ABG Methemoglobin 0.5 % (0.0-1.5); ABG Oxygen Saturation 99.1 % (95.0-99.0); ABG PCO2 33.8 mm Hg; ABG PH 7.504 pH Units (7.350-7.450); ABG PO2 169.2 mm Hg (80.0-90.0)
[2020-01-30] MEDS: MIRTAZAPINE 15 MG TAB PO SCH (22:39)
[2020-01-30] MEDS: traZODone 50 MG TAB PO SCH (22:39)
[2020-01-30] MEDS: DONEPEZIL 10 MG TAB PO SCH (22:40)
[2020-01-31] MEDS: INSULIN REGULAR, HUMAN 100 UNIT/ML 3ML VIAL SUB-Q SCH ×4 (01:14→18:51)
--- NOTE | 2020-01-31 03:24 | XRay Report ---
CHEST 1 VIEW 01/31/2020 2:18 AM INDICATION / CLINICAL INFORMATION: follow up respiratory failure. COMPARISON: 01/30/2020 FINDINGS: SUPPORT DEVICES: Stable, satisfactory device positioning. HEART / MEDIASTINUM: Stable. LUNGS / PLEURA: Stable hazy right lower lung parenchymal opacification. No pneumothorax. ADDITIONAL FINDINGS: No significant additional findings. IMPRESSION: 1. No significant change. Signer Name: Sundar Spring MD Signed: 01/31/2020 3:20 AM Workstation Name: [employer]
[2020-01-31 05:02] LABS: ABG Base Excess 3.4 mmol/L (-2.0-3.0); ABG HCO3 27.1 mmol/L (20.0-26.0); ABG Methemoglobin 0.6 % (0.0-1.5); ABG Oxygen Saturation 98.5 % (95.0-99.0); ABG PCO2 36.8 mm Hg; ABG PH 7.486 pH Units (7.350-7.450); ABG PO2 121.7 mm Hg (80.0-90.0)
[2020-01-31] MEDS: PIPERACIL/TAZOBACTA 4.5/NS 100 4.5 GM/100 ML VIAL IV SCH ×3 (05:42→21:13)
[2020-01-31] MEDS: HYDROCORTISONE SOD SUCC 100 MG/2 ML VIAL IV SCH ×3 (05:42→21:10)
[2020-01-31] MEDS: FUROSEMIDE 40 MG/4 ML INJ IV SCH ×2 (05:42→18:50)
--- NOTE | 2020-01-31 07:45 | Event Note ---
Date: 01/31/20 I called patient's Joel Garcia at [phone] to update patient's condition and to address any of his questions and concerns Could not contact him, left a message and encouraged to call back to discuss about the plan of care and the goals of treatment of Ms. Radha Weinstein. We will try to contact him again today
--- NOTE | 2020-01-31 07:53 | Progress Note ---
Assessment and Plan Assessment and plan: -- s/p PEA cardiac arrest CPR per ACLS protocol with ROSC Check code record Intubated on vent, supportive care Poor prognosis -- Hydropneumothorax, not POA Patient developed hydropneumothorax on 01/15. Surgery evaluated s/p chest tube placed on 01/15. Improved, s/p chest tube removed 01/22 --Acute respiratory failure, not POA likely from Hydropneumothorax, and recurrent left pleural effusion s/p chest tube - improved o2 saturation Now developed recurrent pleural effusion - ordered for thoracentesis, cont iv lasix patient intubated today -- large Left pleural effusion 01/25 Wait for thoracentesis, continue Lasix for now, stopped any IV fluid -- Hypernatremia, Resolved -- Sepsis, likely UTI and infected Sacral decubitus ulcer On zosyn now, cont to Monitor vital signs closely -- UTI (urinary tract infection) Completed antibiotics --h/o Bilateral pulmonary embolism Had pulmonary embolism 7 months ago. CTA chest and LE doppler showed no acute PE or DVT eliquis now stopped --Sacral decubitus ulcer, infected/POA s/p wound debridement on 01/15. Wound vac in place ID recommend cont zosyn 4.5 g IV q8h total 6 weeks stop date 02/27/2020 -- Uncontrolled diabetes mellitus DM management with SSI, TF -- Dementia: Continue donepezil -- Moderate protein-calorie malnutrition She is not eating well and is getting feeds through the NG tube. Discussed with - this problem has been chronic agreed for PEG PEG placed 01/13. Now on tube feeds --DVT prophylaxis heparin drip for PE treatment Try to contact patient's today unable to reach him left voicemail to call back I will try again to call him later today and will discuss patient's condition and goals of treatment The high probability of a clinically significant, sudden or life threatening deterioration of the [Respiratory, MOBILE EQUIPMENT SERVICER, CVs] system(s) required my full and direct attention, intervention and personal management. The aggregate critical care time was [33] minutes. This time is in addition to time spent performing reported procedures but includes the following: [x] Data Review and interpretation [x] Patient assessment and monitoring of vital signs [x] Documentation [x] Medication orders and management Monitor closely and adjust management as needed History Interval history: I have seen and examined the patient at the bedside in ICU this morning Patient's chart and medications reviewed No new overnight events reported by the nursing staff Patient remains intubated on ventilatory support, unresponsive Vital signs reviewed Hospitalist Physical - Constitutional Vitals: Temp Pulse Resp BP Pulse Ox 97.4 F L 86 13 123/53 100 01/31/20 03:30 01/31/20 07:30 01/31/20 07:30 01/31/20 07:30 01/31/20 07:30 General appearance: Present: mild distress, well-nourished, other (Intubated on vent) - EENT Eyes: Present: PERRL, EOM intact - Neck Neck: Present: supple, other (ET tube and Dobbhoff in place) - Respiratory Respiratory effort: normal Respiratory: bilateral: diminished, rhonchi, negative: rales, wheezing - Cardiovascular Rhythm: regular Heart Sounds: Present: S1 & S2 - Extremities Extremities: no ischemia Extremity abnormal: edema - Abdominal General gastrointestinal: soft, non-tender, non-distended, normal bowel sounds - Integumentary Integumentary: Present: clear, warm - Psychiatric Psychiatric: other (Intubated on vent) - Neurologic Neurologic: other (Intubated on vent) Results - Labs CBC & Chem 7: 01/31/20 12:40 01/29/20 04:58 Labs: Laboratory Last Values WBC 13.1 K/mm3 (4.5-11.0) H 01/29/20 04:58 RBC 2.75 M/mm3 (3.65-5.03) L 01/29/20 04:58 Hgb 7.8 gm/dl (10.1-14.3) L 01/30/20 04:00 Hct 23.5 % (30.3-42.9) L 01/30/20 04:00 MCV 93 fl (79-97) 01/29/20 04:58 MCH 31 pg (28-32) 01/29/20 04:58 MCHC 34 % (30-34) 01/29/20 04:58 RDW 17.7 % (13.2-15.2) H 01/29/20 04:58 Plt Count 373 K/mm3 (140-440) 01/30/20 04:00 Lymph % (Auto) 12.7 % (13.4-35.0) L 01/27/20 06:30 [place] % (Auto) 3.9 % (0.0-7.3) 01/27/20 06:30 Eos % (Auto) 0.1 % (0.0-4.3) 01/27/20 06:30 Baso % (Auto) 0.1 % (0.0-1.8) 01/27/20 06:30 Lymph # 1.3 K/mm3 (1.2-5.4) 01/27/20 06:30 [place] # 0.4 K/mm3 (0.0-0.8) 01/27/20 06:30 Eos # 0.0 K/mm3 (0.0-0.4) 01/27/20 06:30 Baso # 0.0 K/mm3 (0.0-0.1) 01/27/20 06:30 Add Manual Diff Complete 01/29/20 04:58 Total Counted 100 01/29/20 04:58 Seg Neutrophils % Patient Safety Sitter 01/29/20 04:58 Seg Neutrophils # 8.4 K/mm3 (1.8-7.7) H 01/27/20 06:30 Seg Neuts % (Manual) 91.0 % (40.0-70.0) H 01/29/20 04:58 Band Neutrophils % 0 % 01/29/20 04:58 Lymphocytes % (Manual) 6.0 % (13.4-35.0) L 01/29/20 04:58 Reactive Lymphs % (Man) 0 % 01/29/20 04:58 Monocytes % (Manual) 3.0 % (0.0-7.3) 01/29/20 04:58 Eosinophils % (Manual) 0 % (0.0-4.3) 01/29/20 04:58 Basophils % (Manual) 0 % (0.0-1.8) 01/29/20 04:58 Metamyelocytes % 0 % 01/29/20 04:58 Myelocytes % 0 % 01/29/20 04:58 Promyelocytes % 0 % 01/29/20 04:58 Blast Cells % 0 % 01/29/20 04:58 Nucleated RBC % 1.0 % (0.0-0.9) H 01/29/20 04:58 Seg Neutrophils # Man 11.9 K/mm3 (1.8-7.7) H 01/29/20 04:58 Band Neutrophils # 0.0 K/mm3 01/29/20 04:58 Lymphocytes # (Manual) 0.8 K/mm3 (1.2-5.4) L 01/29/20 04:58 Abs React Lymphs (Man) 0.0 K/mm3 01/29/20 04:58 Monocytes # (Manual) 0.4 K/mm3 (0.0-0.8) 01/29/20 04:58 Eosinophils # (Manual) 0.0 K/mm3 (0.0-0.4) 01/29/20 04:58 Basophils # (Manual) 0.0 K/mm3 (0.0-0.1) 01/29/20 04:58 Metamyelocytes # 0.0 K/mm3 01/29/20 04:58 Myelocytes # 0.0 K/mm3 01/29/20 04:58 Promyelocytes # 0.0 K/mm3 01/29/20 04:58 Blast Cells # 0.0 K/mm3 01/29/20 04:58 WBC Morphology Not Reportable 01/29/20 04:58 Hypersegmented Neuts Not Reportable 01/29/20 04:58 Hyposegmented Neuts Not Reportable 01/29/20 04:58 Hypogranular Neuts Not Reportable 01/29/20 04:58 Smudge Cells Not Reportable 01/29/20 04:58 Toxic Granulation Not Reportable 01/29/20 04:58 Toxic Vacuolation Not Reportable 01/29/20 04:58 Dohle Bodies Not Reportable 01/29/20 04:58 Pelger-Huet Anomaly Not Reportable 01/29/20 04:58 [place] Rods Not Reportable 01/29/20 04:58 Platelet Estimate Consistent w auto 01/29/20 04:58 Clumped Platelets Not Reportable 01/29/20 04:58 Plt Clumps, EDTA Not Reportable 01/29/20 04:58 Large Platelets Not Reportable 01/29/20 04:58 Giant Platelets Not Reportable 01/29/20 04:58 Platelet Satelliting Not Reportable 01/29/20 04:58 Plt Morphology Comment Not Reportable 01/29/20 04:58 RBC Morphology Not Reportable 01/29/20 04:58 Dimorphic RBCs Not Reportable 01/29/20 04:58 Polychromasia Not Reportable 01/29/20 04:58 Hypochromasia Not Reportable 01/29/20 04:58 Poikilocytosis Not Reportable 01/29/20 04:58 Anisocytosis Few 01/29/20 04:58 Microcytosis Not Reportable 01/29/20 04:58 Macrocytosis Few 01/29/20 04:58 Spherocytes Not Reportable 01/29/20 04:58 Pappenheimer Bodies Not Reportable 01/29/20 04:58 Sickle Cells Not Reportable 01/29/20 04:58 Target Cells Not Reportable 01/29/20 04:58 Tear Drop Cells Not Reportable 01/29/20 04:58 Ovalocytes Not Reportable 01/29/20 04:58 Helmet Cells Not Reportable 01/29/20 04:58 [place] Bodies Not Reportable 01/29/20 04:58 [place] Rings Not Reportable 01/29/20 04:58 Leon[place] Cells Few 01/29/20 04:58 Bite Cells Not Reportable 01/29/20 04:58 Crenated Cell Not Reportable 01/29/20 04:58 Elliptocytes Not Reportable 01/29/20 04:58 Acanthocytes (Spur) Not Reportable 01/29/20 04:58 Rouleaux Not Reportable 01/29/20 04:58 Hemoglobin C Crystals Not Reportable 01/29/20 04:58 Schistocytes Few 01/29/20 04:58 Malaria parasites Not Reportable 01/29/20 04:58 [place] Bodies Not Reportable 01/29/20 04:58 Hem Pathologist Commnt No 01/29/20 04:58 PT 18.4 Sec. (12.2-14.9) H 01/26/20 16:30 INR 1.50 (0.87-1.13) H 01/26/20 16:30 APTT 33.9 Sec. (24.2-36.6) 01/26/20 16:30 Heparin Anti-Xa Level 0.74 U.I./ml (0.3-0.7) H 01/28/20 08:50 ABG pH 7.486 pH Units (7.350-7.450) H 01/31/20 04:52 POC ABG pCO2 32.9 mmHg (32.0-48.0) 01/28/20 11:10 ABG pCO2 36.8 mm Hg 01/31/20 04:52 ABG Oxyhemoglobin 84.7 (94-98) L 01/26/20 21:32 POC ABG pO2 67.2 mmHg (83-108) L 01/28/20 11:10 ABG pO2 121.7 mm Hg (80.0-90.0) H 01/31/20 04:52 POC ABG HCO3 21.2 01/28/20 11:10 ABG HCO3 27.1 mmol/L (20.0-26.0) H 01/31/20 04:52 ABG O2 Saturation 98.5 % (95.0-99.0) 01/31/20 04:52 ABG O2 Content 8.7 (0.0-44) 01/31/20 04:52 POC ABG Base Excess -2.6 01/28/20 11:10 ABG Base Excess 3.4 mmol/L (-2.0-3.0) H 01/31/20 04:52 ABG Hemoglobin 6.2 gm/dl (12.0-16.0) L 01/31/20 04:52 ABG Carboxyhemoglobin 1.4 % (0.0-5.0) 01/31/20 04:52 ABG Methemoglobin 0.6 % (0.0-1.5) 01/31/20 04:52 Carboxyhemoglobin 1.0 (0.5-1.5) 01/26/20 21:32 Oxyhemoglobin 96.5 % (95.0-99.0) 01/31/20 04:52 FiO2 30 % 01/31/20 04:52 Sodium 148 mmol/L (137-145) H 01/29/20 04:58 Potassium 3.5 mmol/L (3.6-5.0) L D 01/29/20 04:58 Chloride 113.2 mmol/L (98-107) H 01/29/20 04:58 Carbon Dioxide 21 mmol/L (22-30) L 01/29/20 04:58 Anion Gap 17 mmol/L 01/29/20 04:58 BUN 20 mg/dL (7-17) H 01/29/20 04:58 Creatinine 0.6 mg/dL (0.6-1.2) 01/29/20 04:58 Estimated GFR > 60 ml/min 01/29/20 04:58 BUN/Creatinine Ratio 33 % 01/29/20 04:58 Glucose 137 mg/dL (65-100) H 01/29/20 04:58 POC Glucose 175 (70-105) H 01/31/20 05:37 Hemoglobin A1c 5.3 % (4-6) 01/11/20 00:45 Lactic Acid 1.30 mmol/L (0.7-2.0) 01/26/20 23:27 Phosphorus 2.80 mg/dL (2.5-4.5) 01/26/20 23:27 Magnesium 2.00 mg/dL (1.7-2.3) 01/26/20 23:27 Calcium 8.1 mg/dL (8.4-10.2) L 01/29/20 04:58 Total Bilirubin 0.30 mg/dL (0.1-1.2) 01/23/20 06:10 AST 16 units/L (5-40) 01/23/20 06:10 ALT 12 units/L (7-56) 01/23/20 06:10 Alkaline Phosphatase 52 units/L (35-129) 01/23/20 06:10 Total Protein 4.9 g/dL (6.3-8.2) L D 01/23/20 06:10 Albumin 2.0 g/dL (3.9-5) L 01/23/20 06:10 Albumin/Globulin Ratio 0.7 % 01/23/20 06:10 C-Reactive Protein 14.80 mg/dL (0.00-1.30) H 01/29/20 Unknown TSH 2.440 mlU/mL (0.270-4.200) 01/10/20 10:10 Procalcitonin 1.86 ng/mL (<0.15) 01/29/20 Unknown Urine Color [place] (Yellow) 01/08/20 Unknown Urine Turbidity Cloudy (Clear) 01/08/20 Unknown Urine pH 5.0 (5.0-7.0) 01/08/20 Unknown Ur Specific [place] 1.018 (1.003-1.030) 01/08/20 Unknown Urine Protein 30 mg/dl mg/dL (Negative) 01/08/20 Unknown Urine Glucose (UA) Neg mg/dL (Negative) 01/08/20 Unknown Urine Ketones Neg mg/dL (Negative) 01/08/20 Unknown Urine Blood Mod (Negative) 01/08/20 Unknown Urine Nitrite Neg (Negative) 01/08/20 Unknown Urine Bilirubin Neg (Negative) 01/08/20 Unknown Urine Urobilinogen < 2.0 mg/dL (<2.0) 01/08/20 Unknown Ur Leukocyte Esterase Sm (Negative) 01/08/20 Unknown Urine WBC (Auto) 11.0 /HPF (0.0-6.0) H 01/08/20 Unknown Urine RBC (Auto) 7.0 /HPF (0.0-6.0) 01/08/20 Unknown U Epithel Cells (Auto) < 1.0 /HPF (0-13.0) 01/08/20 Unknown Urine Bacteria (Auto) 1+ /HPF (Negative) 01/08/20 Unknown Urine Mucus 2+ /HPF 01/08/20 Unknown Urine Yeast (Budding) 1+ /HPF 01/08/20 Unknown Vancomycin Trough 7.9 ug/mL (5.0-20.0) 01/17/20 16:04 Microbiology: Microbiology 01/28/20 10:45 Bronchial Washings - Left Lower Lobe Respiratory Culture - Preliminary Mejía/IV: Voiding Method External Female Catheter IV Catheter Type [Left Upper PICC Line arm] IV Catheter Type [Right Upper INT / Saline Lock arm] IV Catheter Type [Right Peripheral IV Forearm] Active Medications - Current Medications Current Medications: Generic Name Dose Route Start Last Admin Trade Name Freq PRN Reason Stop Dose Admin Acetaminophen 650 mg 01/08/20 23:14 01/18/20 06:03 Tylenol PO 650 mg Q4H PRN Administration Pain MILD(1-3)/Fever >100.5/GARCIA Lipase/Protease/Amylase 1 each 01/17/20 08:[address] 10,500 Unit FEEDTUBE PRN PRN For Clogged Feeding Tube Atorvastatin Calcium 10 mg 01/09/20 22:00 01/30/20 22:40 Atorvastatin PO 10 mg QHS BRO Administration Dextrose 0 ml 01/08/20 23:14 01/26/20 17:44 D50w (25gm) Syringe IV 25 ml Q30MIN PRN Administration Hypoglycemia Protocol Donepezil HCl 10 mg 01/09/20 22:00 01/30/20 22:40 Aricept PO 10 mg QHS BRO Administration Famotidine 20 mg 01/27/20 10:00 01/30/20 22:39 Pepcid PO 20 mg BID BRO Administration Fentanyl 50 mcg 01/28/20 10:57 Sublimaze IV Q10MIN PRN ANALGESIA Fluticasone Propionate 100 mcg 01/25/20 20:00 01/26/20 06:09 Flonase NS 100 mcg QDAY PRN Administration Nasal Congestion Furosemide 40 mg 01/29/20 06:00 01/31/20 05:42 Lasix IV 40 mg 0600,1800 BRO Administration Heparin Sodium (Porcine) 5,000 unit 01/28/20 10:00 01/30/20 22:40 Heparin SUB-Q 5,000 unit Q12HR BRO Administration Hydrocortisone Sodium Succinate 100 mg 01/29/20 15:00 01/31/20 05:42 Solu-Cortef IV 100 mg Q8HR BRO Administration Hydrophilic Ointment 1 applic 01/28/20 10:57 Vaseline Lip Therapy TP Q2HR PRN Dry Lips Piperacillin Sod/Tazobactam Sod 4.5 gm in 100 mls @ 200 mls/hr 01/19/20 14:00 01/31/20 05:42 Zosyn/Ns 4.5gm/100ml IV 02/27/20 22:29 200 mls/hr Q8HR BRO Administration Protocol Norepinephrine 4 mg in 250 mls @ 7.5 mls/hr 01/26/20 20:00 01/30/20 06:00 Levophed Drip 4 Mg/Ns 250 Ml IV 3 mcg/min TITR BRO 11.25 mls/hr Titration Protocol 2 MCG/MIN Fentanyl Citrate 2,000 mcg in 100 mls @ 1.603 mls/hr 01/28/20 11:00 Fentanyl Drip Premix IV TITR BRO Protocol 0.5 MCG/KG/HR Insulin Human Regular 0 unit 01/27/20 12:00 01/31/20 05:43 Humulin R SUB-Q 1 unit Q6HR BRO Administration Protocol Magnesium Hydroxide 30 ml 01/08/20 23:14 Milk Of Magnesia PO Q4H PRN Constipation Megestrol Acetate 400 mg 01/12/20 11:00 01/30/20 09:56 Megestrol PO 400 mg QDAY BRO Administration Mirtazapine 15 mg 01/09/20 22:00 01/30/20 22:39 Remeron PO 15 mg QHS BRO Administration Multi-Ingred Cream/Lotion/Oil/Oint 1 applic 01/28/20 10:57 Artificial Tears Ophth Oint OU Q4HR PRN Dry Eye(s) Ondansetron HCl 4 mg 01/08/20 23:14 Zofran IV Q8H PRN Nausea And Vomiting Simple Syrup 15 ml 01/17/20 08:37 Simple Syrup FEEDTUBE PRN PRN Hypoglycemia Simple Syrup 30 ml 01/17/20 08:37 Simple Syrup FEEDTUBE PRN PRN Hypoglycemia Sodium Bicarbonate 325 mg 01/17/20 08:37 Sodium Bicarbonate FEEDTUBE PRN PRN For Clogged Feeding Tube Sodium Chloride 10 ml 01/09/20 10:00 01/30/20 15:52 Sodium Chloride Flush Syringe 10 Ml IV Not Given BID BRO Sodium Chloride 10 ml 01/08/20 23:14 Sodium Chloride Flush Syringe 10 Ml IV PRN PRN LINE FLUSH Trazodone HCl 25 mg 01/09/20 22:00 01/30/20 22:39 Desyrel PO 25 mg QHS BRO Administration Nutrition/Malnutrition Assess - Dietary Evaluation Nutrition/Malnutrition Findings: Nutrition Notes Start: 01/09/20 12:13 Freq: Status: Active Protocol: Document 01/30/20 13:51 [email or web address] (Rec: 01/30/20 14:35 [email or web address]) Co-Sign 01/30/20 13:51 LP Nutrition Notes Initial or Follow up Reassessment Current Diagnosis Decubitus(Pressure Ulcer), Diabetes,Sepsis Other Pertinent Diagnosis UTI, dementia, PE, Sacral wound Current Diet Vital AF 1.2 at 50ml/hr Labs/Tests 01/28 Na 148 K 3.5 BUN 20 BG 137 Pertinent Medications Levophed Height 5 ft 2 in Weight 62.5 kg [place] Body Weight (kg) 50.00 BMI 25.2 Weight change and time frame Wt change noted Subjective/Other Information F/U for TF tolerance. Per chart, Pt TF running at 50ml/ hr. 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 Yes Is Patient Ambulatory and/or Out of Bed No REE-([place]-St. Jeor-confined to bed) 1323.876 Kcal/Kg value to use for calculation 25 Approximate Energy Requirements Using 1563 kcal/Kg Calculation Used for Recommendations Kcal/kg Additional Notes Protein needs 77-128g(1.2-2g/ kg) Fluid needs 1ml/kcal Nutrition Intervention Change Diet Order: Continue Nutrition Support: Vital AF 1.2 at 50ml/hr Flush 80ml q4h Flush 200ml q4h per MD Kcal 1,440 Protein (gm) 90 Fluid (mL) 973 Goal #1 Meet at least 80% of kcal and protein needs via TF Goal #2 TF tolerance Goal #3 Wound Healing Anticipated Discharge Needs: Undetermined at this time Follow-Up By: 02/03/20 Additional Comments F/U TF tolerance
[2020-01-31] MEDS: FAMOTIDINE 20 MG TAB PO SCH ×2 (10:45→21:10)
[2020-01-31] MEDS: MEGESTROL 400 MG/10 ML ORAL LIQD PO SCH (10:46)
[2020-01-31] MEDS: HEPARIN 5,000 UNIT/1 ML VIAL SUB-Q SCH ×2 (10:46→21:10)
[2020-01-31 12:55] LABS: Hematocrit 22.3 % (30.3-42.9); Hemoglobin 7.5 gm/dl (10.1-14.3); Mean Corpuscular HGB Conc 34 % (30-34); Mean Corpuscular Volume 93 fl (79-97); Platelet Count 330 K/mm3 (140-440); Red Blood Count 2.41 M/mm3 (3.65-5.03)
[2020-01-31 13:00] LABS: Red Cell Distribution Width 22.2 % (13.2-15.2)
[2020-01-31 13:22] LABS: Alanine Aminotransferase 23 units/L (7-56); Albumin 2.3 g/dL (3.9-5); Blood Urea Nitrogen 22 mg/dL (7-17); Calcium 8.1 mg/dL (8.4-10.2); Hemolysis Index 3
[2020-01-31 13:24] LABS: BUN/Creatinine Ratio 37
[2020-01-31] MEDS: POTASSIUM CHLORIDE 20 MEQ PACKET FEEDTUBE SCH ×2 (14:50→18:50)
[2020-01-31] MEDS: POTASSIUM CHLORIDE 10 MEQ 10 MEQ/100 ML BAG IV SCH ×4 (14:51→18:46)
[2020-01-31 15:01] LABS: Basophils % (Manual) 0 % (0.0-1.8); Eosinophils % (Manual) 0 % (0.0-4.3); Total Cells Counted 100
[2020-01-31 15:02] LABS: Anisocytosis 1+; Macrocytosis 1+; Platelet Clumps Few; Platelet Estimate Cons
--- NOTE | 2020-01-31 16:57 | Progress Note ---
Assessment and Plan Severe sepsis with shock. Left lung atelectasis. Left pleural effusion. Acute hypoxemic respiratory failure. Acute possibly on chronic encephalopathy. History of diabetes. Urinary tract infection. History of pulmonary embolism, diagnosed several months ago. Sacral decubitus ulcer. Dementia. Anemia that is normocytic. (AMS remains rate limiting factor to safe extubation at this point) - repllace electrolytes per protocol - begin stress dose steroids taper - repeat procalcitonin as necessary to aid clinical decision making while on systemic steroids - follow BAL studies - keep set TV at 350 ml's re: alkalosis - continue free water at 200 mls q4h - continue care as below otherwise; - Daily SAT and SBT assessment as tolerated - continue to wean supplemental oxygen for target O2 sat's > 92% acutely - VAP bundle addressed - continue lung protective strategies - continue bronchodilators with pulmonary hygiene per RT - wean per pulmonary driven protocols otherwise - continue accuchecks with glycemic control per SSI (While critically ill target blood glucose of 140-180 mg/dL; avoid hypoglycemia) - sedation prn for target RASS 0 to -1 - avoid nephrotoxins, renally dose all medications - continue to avoid benzodiazepine's, reduce the possibility of delirium - complete AB's per ID rec's - prn analgesia per CPOT score - Maintenance of sleep-wake cycle, avoid delirium - continue enteral nutritional support at goal rate as tolerated - G.I. & VTE prophylaxis with famotidine and heparin - PT/OT/ROM exercises - continue mobility protocols for pressure ulcer prophylaxis - Monitor hemodynamics closely - continue other care per attending / other consultants - discharge planning ongoing concurrently .... Re-evaluate in am & prn CONDITION: CRITICAL PROGNOSIS: GUARDED CODE STATUS: FULL CODE The high probability of a clinically significant, sudden or life-threatening deterioration of the [respiratory, cardiovascular & neurologic] system(s) required my full and direct attention, intervention and personal management. The aggregate critical care time was [33] minutes without overlap. Time includes spent on; [x] Data Review and interpretation [x] Patient assessment and monitoring of vital signs [x] Documentation [x] Medication orders and management Subjective Date of service: 01/31/20 Principal diagnosis: Septic Shock; S/P Cardiac Arrest; Ac. hypoxemic resp failure; UTI Interval history: Patient is seen today for: Severe sepsis with shock; S/P Cardiac Arrest; L. lung atelectasis / L. pleural effusion; Acute hypoxemic respiratory failure; Acute possibly on chronic encephalopathy; DM II; UTI; VTE Seen and examined at bedside; 24hour events reviewed; nursing and respiratory care staff consulted; no adverse overnight events reported to me; resting peacefully in bed; remains on MVS; weaned off Levophed; AMS is persistent; tolerating daytime SBT's Objective Vital Signs - 12hr 01/31/20 01/31/20 01/31/20 04:57 05:00 05:15 Pulse Rate 86 73 80 Respiratory 16 14 Rate Blood Pressure 145/63 142/89 138/63 O2 Sat by Pulse 100 100 100 Oximetry 01/31/20 01/31/20 01/31/20 05:30 05:45 06:00 Pulse Rate 77 74 79 Respiratory 14 14 14 Rate Blood Pressure 134/60 132/61 142/63 O2 Sat by Pulse 100 100 100 Oximetry 01/31/20 01/31/20 01/31/20 06:15 06:30 06:45 Pulse Rate 110 H 89 83 Respiratory 16 15 15 Rate Blood Pressure 142/63 120/51 126/51 O2 Sat by Pulse 100 99 99 Oximetry 01/31/20 01/31/20 01/31/20 07:00 07:15 07:30 Pulse Rate 90 82 86 Respiratory 14 15 13 Rate Blood Pressure 121/52 119/52 123/53 O2 Sat by Pulse 99 100 100 Oximetry 01/31/20 01/31/20 01/31/20 07:45 07:49 08:00 Pulse Rate 70 67 80 Respiratory 15 Rate Blood Pressure 114/45 114/45 O2 Sat by Pulse 100 100 Oximetry 01/31/20 01/31/20 01/31/20 08:01 08:15 08:30 Pulse Rate 85 86 81 Respiratory 16 16 16 Rate Blood Pressure 108/61 120/60 115/52 O2 Sat by Pulse 100 100 100 Oximetry 01/31/20 01/31/20 01/31/20 08:45 09:00 09:10 Pulse Rate 86 87 78 Respiratory 14 15 22 Rate Blood Pressure 124/55 118/55 122/50 O2 Sat by Pulse 100 100 100 Oximetry 01/31/20 01/31/20 01/31/20 09:15 09:30 09:45 Pulse Rate 87 81 83 Respiratory 19 14 16 Rate Blood Pressure 118/53 122/50 105/49 O2 Sat by Pulse 100 100 100 Oximetry 01/31/20 01/31/20 01/31/20 10:00 10:15 10:30 Pulse Rate 90 82 85 Respiratory 15 14 13 Rate Blood Pressure 120/56 123/55 121/59 O2 Sat by Pulse 100 100 100 Oximetry 01/31/20 01/31/20 01/31/20 10:45 11:00 11:01 Pulse Rate 75 87 82 Respiratory 12 13 14 Rate Blood Pressure 106/50 119/53 123/55 O2 Sat by Pulse 100 100 100 Oximetry 01/31/20 01/31/20 01/31/20 11:15 11:30 11:45 Pulse Rate 89 90 92 H Respiratory 13 14 13 Rate Blood Pressure 125/56 120/52 122/54 O2 Sat by Pulse 100 100 100 Oximetry 01/31/20 01/31/20 01/31/20 12:00 12:15 12:30 Pulse Rate 85 85 87 Respiratory 13 13 13 Rate Blood Pressure 122/54 121/54 115/53 O2 Sat by Pulse 100 100 100 Oximetry 01/31/20 01/31/20 01/31/20 12:45 13:00 13:15 Pulse Rate 86 86 83 Respiratory 13 13 12 Rate Blood Pressure 114/53 119/52 117/53 O2 Sat by Pulse 100 100 100 Oximetry 01/31/20 01/31/20 01/31/20 13:30 13:45 14:01 Pulse Rate 83 78 59 L Respiratory 12 13 12 Rate Blood Pressure 117/48 107/51 112/44 O2 Sat by Pulse 100 100 100 Oximetry 01/31/20 01/31/20 01/31/20 14:16 14:30 14:45 Pulse Rate 87 86 69 Respiratory 14 13 15 Rate Blood Pressure 112/44 116/51 113/49 O2 Sat by Pulse 100 100 100 Oximetry 01/31/20 01/31/20 15:00 15:35 Pulse Rate 82 89 Respiratory 18 12 Rate Blood Pressure 120/56 120/56 O2 Sat by Pulse 100 100 Oximetry Constitutional: no acute distress, other (elderly looking female witrh mildly increased respiratory effort at rest on MVS) Eyes: non-icteric ENT: oropharynx moist, other (ETT 23 cm FLORENCIO) Neck: supple, no lymphadenopathy, no JVD Effort: mildly labored Ascultation: Bilateral: diminished breath sounds, rales (bases predominant) Percussion: Bilateral: not dull Cardiovascular: regular rate and rhythm Gastrointestinal: normoactive bowel sounds, soft, non-tender, non-distended Integumentary: decubitus ulcer (see [facility] notes) Extremities: no cyanosis, no edema, pulses normal Neurologic: pupils equal and round, unable to assess Psychiatric: other (Unable to assess re: AMS) CBC and BMP: 02/01/20 04:32 02/01/20 04:32 ABG, PT/INR, D-dimer: ABG ABG pH 7.542 (7.320-7.450) H 01/31/20 14:40 POC ABG pCO2 35.3 mmHg (32.0-48.0) 01/31/20 14:40 ABG pCO2 36.8 mm Hg 01/31/20 04:52 POC ABG pO2 124.7 mmHg (83-108) H 01/31/20 14:40 ABG pO2 121.7 mm Hg (80.0-90.0) H 01/31/20 04:52 POC ABG HCO3 29.6 01/31/20 14:40 ABG O2 Saturation 98.5 % (95.0-99.0) 01/31/20 04:52 PT/INR, D-dimer PT 18.4 Sec. (12.2-14.9) H 01/26/20 16:30 INR 1.50 (0.87-1.13) H 01/26/20 16:30 Abnormal lab findings: Abnormal Labs 01/08/20 01/08/20 01/08/20 16:29 16:29 16:29 WBC 13.5 H RBC Hgb Hct MCHC RDW 15.5 H Plt Count Lymph % (Auto) Lymph # Seg Neutrophils % Seg Neuts % (Manual) 85.0 H Lymphocytes % (Manual) 11.0 L Seg Neutrophils # Seg Neutrophils # Man 11.5 H Nucleated RBC % Lymphocytes # (Manual) PT INR Heparin Anti-Xa Level POC ABG pO2 ABG pH ABG Hemoglobin ABG Oxyhemoglobin ABG pO2 ABG HCO3 ABG O2 Saturation ABG Base Excess Sodium 161 H* Potassium Chloride 125.5 H Carbon Dioxide 20 L BUN 30 H Creatinine Glucose 115 H POC Glucose Lactic Acid 2.20 H* Calcium 7.9 L AST 48 H Total Protein Albumin 2.5 L C-Reactive Protein Urine WBC (Auto) 01/08/20 01/08/20 01/08/20 19:02 23:30 Unknown WBC RBC Hgb Hct MCHC RDW Plt Count Lymph % (Auto) Lymph # Seg Neutrophils % Seg Neuts % (Manual) Lymphocytes % (Manual) Seg Neutrophils # Seg Neutrophils # Man Nucleated RBC % Lymphocytes # (Manual) PT INR Heparin Anti-Xa Level POC ABG pO2 ABG pH ABG Hemoglobin ABG Oxyhemoglobin ABG pO2 ABG HCO3 ABG O2 Saturation ABG Base Excess Sodium Potassium Chloride Carbon Dioxide BUN Creatinine Glucose POC Glucose Lactic Acid 2.10 H* 2.50 H* Calcium AST Total Protein Albumin C-Reactive Protein Urine WBC (Auto) 11.0 H 01/09/20 01/09/20 01/09/20 00:19 00:54 05:52 WBC 13.5 H RBC 3.02 L Hgb 9.0 L D Hct 27.4 L D MCHC RDW Plt Count Lymph % (Auto) 9.1 L Lymph # Seg Neutrophils % 87.6 H Seg Neuts % (Manual) Lymphocytes % (Manual) Seg Neutrophils # 11.8 H Seg Neutrophils # Man Nucleated RBC % Lymphocytes # (Manual) PT INR Heparin Anti-Xa Level POC ABG pO2 ABG pH ABG Hemoglobin ABG Oxyhemoglobin ABG pO2 ABG HCO3 ABG O2 Saturation ABG Base Excess Sodium Potassium Chloride Carbon Dioxide BUN Creatinine Glucose POC Glucose 118 H 116 H Lactic Acid Calcium AST Total Protein Albumin C-Reactive Protein Urine WBC (Auto) 01/09/20 01/09/20 01/09/20 05:52 05:52 13:03 WBC RBC Hgb Hct MCHC RDW Plt Count Lymph % (Auto) Lymph # Seg Neutrophils % Seg Neuts % (Manual) Lymphocytes % (Manual) Seg Neutrophils # Seg Neutrophils # Man Nucleated RBC % Lymphocytes # (Manual) PT 17.1 H INR 1.36 H Heparin Anti-Xa Level POC ABG pO2 ABG pH ABG Hemoglobin ABG Oxyhemoglobin ABG pO2 ABG HCO3 ABG O2 Saturation ABG Base Excess Sodium 162 H* Potassium 3.0 L D Chloride 128.3 H Carbon Dioxide BUN 23 H Creatinine Glucose POC Glucose 55 L Lactic Acid Calcium 7.6 L AST Total Protein Albumin C-Reactive Protein Urine WBC (Auto) 01/09/20 01/09/20 01/09/20 21:22 21:50 22:28 WBC RBC Hgb Hct MCHC RDW Plt Count Lymph % (Auto) Lymph # Seg Neutrophils % Seg Neuts % (Manual) Lymphocytes % (Manual) Seg Neutrophils # Seg Neutrophils # Man Nucleated RBC % Lymphocytes # (Manual) PT INR Heparin Anti-Xa Level POC ABG pO2 ABG pH ABG Hemoglobin ABG Oxyhemoglobin ABG pO2 ABG HCO3 ABG O2 Saturation ABG Base Excess Sodium 159 H Potassium 5.1 H D Chloride 128.5 H Carbon Dioxide 16 L BUN 23 H Creatinine Glucose 51 L POC Glucose 52 L 106 H Lactic Acid Calcium 8.2 L AST Total Protein Albumin C-Reactive Protein Urine WBC (Auto) 01/10/20 01/10/20 01/10/20 05:23 09:11 10:10 WBC 13.4 H RBC Hgb Hct MCHC RDW Plt Count Lymph % (Auto) 7.2 L Lymph # 1.0 L Seg Neutrophils % 90.0 H Seg Neuts % (Manual) Lymphocytes % (Manual) Seg Neutrophils # 12.0 H Seg Neutrophils # Man Nucleated RBC % Lymphocytes # (Manual) PT INR Heparin Anti-Xa Level POC ABG pO2 ABG pH ABG Hemoglobin ABG Oxyhemoglobin ABG pO2 ABG HCO3 ABG O2 Saturation ABG Base Excess Sodium 155 H Potassium Chloride 122.8 H Carbon Dioxide 21 L BUN 19 H Creatinine Glucose POC Glucose 120 H Lactic Acid Calcium AST Total Protein Albumin C-Reactive Protein Urine WBC (Auto) 01/10/20 01/10/20 01/10/20 11:47 11:57 17:09 WBC RBC Hgb Hct MCHC RDW Plt Count Lymph % (Auto) Lymph # Seg Neutrophils % Seg Neuts % (Manual) Lymphocytes % (Manual) Seg Neutrophils # Seg Neutrophils # Man Nucleated RBC % Lymphocytes # (Manual) PT INR Heparin Anti-Xa Level POC ABG pO2 ABG pH ABG Hemoglobin ABG Oxyhemoglobin ABG pO2 ABG HCO3 ABG O2 Saturation ABG Base Excess Sodium 153 H Potassium Chloride 118.3 H Carbon Dioxide 20 L BUN 19 H Creatinine Glucose 113 H POC Glucose 142 H 125 H Lactic Acid Calcium AST Total Protein Albumin C-Reactive Protein Urine WBC (Auto) 01/10/20 01/10/20 01/11/20 20:27 22:00 00:45 WBC RBC Hgb Hct MCHC RDW Plt Count Lymph % (Auto) Lymph # Seg Neutrophils % Seg Neuts % (Manual) Lymphocytes % (Manual) Seg Neutrophils # Seg Neutrophils # Man Nucleated RBC % Lymphocytes # (Manual) PT INR Heparin Anti-Xa Level POC ABG pO2 ABG pH ABG Hemoglobin ABG Oxyhemoglobin ABG pO2 ABG HCO3 ABG O2 Saturation ABG Base Excess Sodium 153 H 154 H Potassium 3.3 L 3.2 L Chloride 117.0 H 118.9 H Carbon Dioxide 20 L BUN Creatinine Glucose POC Glucose 136 H Lactic Acid Calcium 8.3 L 8.0 L AST Total Protein Albumin C-Reactive Protein Urine WBC (Auto) 01/11/20 01/11/20 01/11/20 07:06 08:03 11:54 WBC RBC Hgb Hct MCHC RDW Plt Count Lymph % (Auto) Lymph # Seg Neutrophils % Seg Neuts % (Manual) Lymphocytes % (Manual) Seg Neutrophils # Seg Neutrophils # Man Nucleated RBC % Lymphocytes # (Manual) PT INR Heparin Anti-Xa Level POC ABG pO2 ABG pH ABG Hemoglobin ABG Oxyhemoglobin ABG pO2 ABG HCO3 ABG O2 Saturation ABG Base Excess Sodium 151 H Potassium Chloride 118.7 H Carbon Dioxide 21 L BUN Creatinine Glucose 107 H POC Glucose 118 H 164 H Lactic Acid Calcium 8.3 L AST Total Protein Albumin C-Reactive Protein Urine WBC (Auto) 01/11/20 01/12/20 01/12/20 16:28 00:19 05:40 WBC RBC Hgb Hct MCHC RDW Plt Count Lymph % (Auto) Lymph # Seg Neutrophils % Seg Neuts % (Manual) Lymphocytes % (Manual) Seg Neutrophils # Seg Neutrophils # Man Nucleated RBC % Lymphocytes # (Manual) PT INR Heparin Anti-Xa Level POC ABG pO2 ABG pH ABG Hemoglobin ABG Oxyhemoglobin ABG pO2 ABG HCO3 ABG O2 Saturation ABG Base Excess Sodium 148 H Potassium Chloride 111.6 H Carbon Dioxide 19 L BUN Creatinine Glucose 128 H POC Glucose 132 H 179 H Lactic Acid Calcium 8.2 L AST Total Protein Albumin C-Reactive Protein Urine WBC (Auto) 01/12/20 01/12/20 01/12/20 06:17 11:37 17:21 WBC RBC Hgb Hct MCHC RDW Plt Count Lymph % (Auto) Lymph # Seg Neutrophils % Seg Neuts % (Manual) Lymphocytes % (Manual) Seg Neutrophils # Seg Neutrophils # Man Nucleated RBC % Lymphocytes # (Manual) PT INR Heparin Anti-Xa Level POC ABG pO2 ABG pH ABG Hemoglobin ABG Oxyhemoglobin ABG pO2 ABG HCO3 ABG O2 Saturation ABG Base Excess Sodium Potassium Chloride Carbon Dioxide BUN Creatinine Glucose POC Glucose 140 H 142 H 133 H Lactic Acid Calcium AST Total Protein Albumin C-Reactive Protein Urine WBC (Auto) 01/12/20 01/13/20 01/13/20 23:14 05:26 07:00 WBC RBC Hgb Hct MCHC RDW Plt Count Lymph % (Auto) Lymph # Seg Neutrophils % Seg Neuts % (Manual) Lymphocytes % (Manual) Seg Neutrophils # Seg Neutrophils # Man Nucleated RBC % Lymphocytes # (Manual) PT INR Heparin Anti-Xa Level POC ABG pO2 ABG pH ABG Hemoglobin ABG Oxyhemoglobin ABG pO2 ABG HCO3 ABG O2 Saturation ABG Base Excess Sodium Potassium Chloride 110.0 H Carbon Dioxide BUN Creatinine Glucose 139 H POC Glucose 135 H 162 H Lactic Acid Calcium 7.8 L AST Total Protein Albumin C-Reactive Protein Urine WBC (Auto) 01/13/20 01/13/20 01/13/20 12:14 17:52 21:40 WBC RBC Hgb Hct MCHC RDW Plt Count Lymph % (Auto) Lymph # Seg Neutrophils % Seg Neuts % (Manual) Lymphocytes % (Manual) Seg Neutrophils # Seg Neutrophils # Man Nucleated RBC % Lymphocytes # (Manual) PT INR Heparin Anti-Xa Level POC ABG pO2 ABG pH ABG Hemoglobin ABG Oxyhemoglobin ABG pO2 ABG HCO3 ABG O2 Saturation ABG Base Excess Sodium Potassium Chloride Carbon Dioxide BUN Creatinine Glucose POC Glucose 205 H 172 H 186 H Lactic Acid Calcium AST Total Protein Albumin C-Reactive Protein Urine WBC (Auto) 01/14/20 01/14/20 01/14/20 04:28 11:01 11:01 WBC 14.8 H RBC 3.20 L Hgb 9.5 L Hct 28.0 L MCHC RDW Plt Count Lymph % (Auto) Lymph # Seg Neutrophils % Seg Neuts % (Manual) Lymphocytes % (Manual) Seg Neutrophils # Seg Neutrophils # Man Nucleated RBC % Lymphocytes # (Manual) PT INR Heparin Anti-Xa Level POC ABG pO2 ABG pH ABG Hemoglobin ABG Oxyhemoglobin ABG pO2 ABG HCO3 ABG O2 Saturation ABG Base Excess Sodium Potassium 3.2 L Chloride Carbon Dioxide BUN Creatinine 0.4 L Glucose POC Glucose 115 H Lactic Acid Calcium 8.0 L AST Total Protein Albumin C-Reactive Protein Urine WBC (Auto) 01/14/20 01/14/20 01/14/20 11:01 16:33 22:32 WBC RBC Hgb Hct MCHC RDW Plt Count Lymph % (Auto) Lymph # Seg Neutrophils % Seg Neuts % (Manual) Lymphocytes % (Manual) Seg Neutrophils # Seg Neutrophils # Man Nucleated RBC % Lymphocytes # (Manual) PT 15.8 H INR 1.23 H Heparin Anti-Xa Level POC ABG pO2 ABG pH ABG Hemoglobin ABG Oxyhemoglobin ABG pO2 ABG HCO3 ABG O2 Saturation ABG Base Excess Sodium Potassium Chloride Carbon Dioxide BUN Creatinine Glucose POC Glucose 58 L 188 H Lactic Acid Calcium AST Total Protein Albumin C-Reactive Protein Urine WBC (Auto) 01/15/20 01/15/20 01/15/20 05:35 06:19 17:17 WBC RBC Hgb Hct MCHC RDW Plt Count Lymph % (Auto) Lymph # Seg Neutrophils % Seg Neuts % (Manual) Lymphocytes % (Manual) Seg Neutrophils # Seg Neutrophils # Man Nucleated RBC % Lymphocytes # (Manual) PT INR Heparin Anti-Xa Level POC ABG pO2 ABG pH ABG Hemoglobin ABG Oxyhemoglobin ABG pO2 ABG HCO3 ABG O2 Saturation ABG Base Excess Sodium Potassium Chloride Carbon Dioxide BUN Creatinine 0.5 L Glucose 104 H POC Glucose 106 H 183 H Lactic Acid Calcium 7.8 L AST Total Protein Albumin C-Reactive Protein Urine WBC (Auto) 01/15/20 01/16/20 01/16/20 22:29 05:35 05:59 WBC 14.7 H RBC 3.04 L Hgb 9.0 L Hct 27.0 L MCHC RDW Plt Count Lymph % (Auto) 9.1 L Lymph # Seg Neutrophils % 87.3 H Seg Neuts % (Manual) Lymphocytes % (Manual) Seg Neutrophils # 12.9 H Seg Neutrophils # Man Nucleated RBC % Lymphocytes # (Manual) PT INR Heparin Anti-Xa Level POC ABG pO2 ABG pH ABG Hemoglobin ABG Oxyhemoglobin ABG pO2 ABG HCO3 ABG O2 Saturation ABG Base Excess Sodium Potassium Chloride Carbon Dioxide BUN Creatinine Glucose POC Glucose 228 H 130 H Lactic Acid Calcium AST Total Protein Albumin C-Reactive Protein Urine WBC (Auto) 01/16/20 01/16/20 01/16/20 09:52 12:49 17:30 WBC RBC Hgb Hct MCHC RDW Plt Count Lymph % (Auto) Lymph # Seg Neutrophils % Seg Neuts % (Manual) Lymphocytes % (Manual) Seg Neutrophils # Seg Neutrophils # Man Nucleated RBC % Lymphocytes # (Manual) PT INR Heparin Anti-Xa Level POC ABG pO2 ABG pH ABG Hemoglobin ABG Oxyhemoglobin ABG pO2 ABG HCO3 ABG O2 Saturation ABG Base Excess Sodium Potassium Chloride Carbon Dioxide BUN Creatinine Glucose POC Glucose 122 H 142 H 192 H Lactic Acid Calcium AST Total Protein Albumin C-Reactive Protein Urine WBC (Auto) 01/16/20 01/17/20 01/17/20 23:01 08:36 08:36 WBC 12.7 H RBC 2.98 L Hgb 8.9 L Hct 26.4 L MCHC RDW Plt Count Lymph % (Auto) 8.8 L Lymph # 1.1 L Seg Neutrophils % 86.7 H Seg Neuts % (Manual) Lymphocytes % (Manual) Seg Neutrophils # 11.0 H Seg Neutrophils # Man Nucleated RBC % Lymphocytes # (Manual) PT INR Heparin Anti-Xa Level POC ABG pO2 ABG pH ABG Hemoglobin ABG Oxyhemoglobin ABG pO2 ABG HCO3 ABG O2 Saturation ABG Base Excess Sodium Potassium 3.3 L D Chloride Carbon Dioxide BUN Creatinine 0.4 L Glucose POC Glucose 141 H Lactic Acid Calcium 8.1 L AST Total Protein 4.6 L Albumin 1.6 L C-Reactive Protein Urine WBC (Auto) 01/17/20 01/17/20 01/18/20 11:43 23:56 06:27 WBC RBC Hgb Hct MCHC RDW Plt Count Lymph % (Auto) Lymph # Seg Neutrophils % Seg Neuts % (Manual) Lymphocytes % (Manual) Seg Neutrophils # Seg Neutrophils # Man Nucleated RBC % Lymphocytes # (Manual) PT INR Heparin Anti-Xa Level POC ABG pO2 ABG pH ABG Hemoglobin ABG Oxyhemoglobin ABG pO2 ABG HCO3 ABG O2 Saturation ABG Base Excess Sodium Potassium Chloride Carbon Dioxide BUN Creatinine Glucose POC Glucose 137 H 215 H 122 H Lactic Acid Calcium AST Total Protein Albumin C-Reactive Protein Urine WBC (Auto) 01/18/20 01/18/20 01/18/20 07:31 07:31 11:39 WBC 12.1 H RBC 3.23 L Hgb 9.7 L Hct 28.7 L MCHC RDW Plt Count Lymph % (Auto) 9.2 L Lymph # 1.1 L Seg Neutrophils % 85.0 H Seg Neuts % (Manual) Lymphocytes % (Manual) Seg Neutrophils # 10.3 H Seg Neutrophils # Man Nucleated RBC % Lymphocytes # (Manual) PT INR Heparin Anti-Xa Level POC ABG pO2 ABG pH ABG Hemoglobin ABG Oxyhemoglobin ABG pO2 ABG HCO3 ABG O2 Saturation ABG Base Excess Sodium Potassium Chloride Carbon Dioxide BUN Creatinine 0.4 L Glucose 108 H POC Glucose 172 H Lactic Acid Calcium AST Total Protein 5.3 L Albumin 2.1 L C-Reactive Protein Urine WBC (Auto) 01/18/20 01/19/20 01/19/20 18:22 00:15 11:30 WBC RBC Hgb Hct MCHC RDW Plt Count Lymph % (Auto) Lymph # Seg Neutrophils % Seg Neuts % (Manual) Lymphocytes % (Manual) Seg Neutrophils # Seg Neutrophils # Man Nucleated RBC % Lymphocytes # (Manual) PT INR Heparin Anti-Xa Level POC ABG pO2 ABG pH ABG Hemoglobin ABG Oxyhemoglobin ABG pO2 ABG HCO3 ABG O2 Saturation ABG Base Excess Sodium Potassium Chloride Carbon Dioxide BUN Creatinine Glucose POC Glucose 119 H 135 H 163 H Lactic Acid Calcium AST Total Protein Albumin C-Reactive Protein Urine WBC (Auto) 01/19/20 01/19/20 01/20/20 17:44 22:59 03:44 WBC 11.1 H RBC 2.77 L Hgb 8.4 L Hct 25.0 L MCHC RDW Plt Count Lymph % (Auto) Lymph # Seg Neutrophils % 74.6 H Seg Neuts % (Manual) Lymphocytes % (Manual) Seg Neutrophils # 8.3 H Seg Neutrophils # Man Nucleated RBC % Lymphocytes # (Manual) PT INR Heparin Anti-Xa Level POC ABG pO2 ABG pH ABG Hemoglobin ABG Oxyhemoglobin ABG pO2 ABG HCO3 ABG O2 Saturation ABG Base Excess Sodium Potassium Chloride Carbon Dioxide BUN Creatinine Glucose POC Glucose 161 H 182 H Lactic Acid Calcium AST Total Protein Albumin C-Reactive Protein Urine WBC (Auto) 01/20/20 01/21/20 01/21/20 03:44 00:07 05:51 WBC RBC 2.84 L Hgb 8.6 L Hct 25.5 L MCHC RDW Plt Count 463 H Lymph % (Auto) Lymph # Seg Neutrophils % 76.9 H Seg Neuts % (Manual) Lymphocytes % (Manual) Seg Neutrophils # 7.8 H Seg Neutrophils # Man Nucleated RBC % Lymphocytes # (Manual) PT INR Heparin Anti-Xa Level POC ABG pO2 ABG pH ABG Hemoglobin ABG Oxyhemoglobin ABG pO2 ABG HCO3 ABG O2 Saturation ABG Base Excess Sodium Potassium Chloride Carbon Dioxide BUN Creatinine 0.4 L Glucose POC Glucose 68 L Lactic Acid Calcium 7.9 L AST Total Protein 4.7 L Albumin 1.9 L C-Reactive Protein Urine WBC (Auto) 01/21/20 01/21/20 01/21/20 05:51 05:58 11:25 WBC RBC Hgb Hct MCHC RDW Plt Count Lymph % (Auto) Lymph # Seg Neutrophils % Seg Neuts % (Manual) Lymphocytes % (Manual) Seg Neutrophils # Seg Neutrophils # Man Nucleated RBC % Lymphocytes # (Manual) PT INR Heparin Anti-Xa Level POC ABG pO2 ABG pH ABG Hemoglobin ABG Oxyhemoglobin ABG pO2 ABG HCO3 ABG O2 Saturation ABG Base Excess Sodium Potassium Chloride Carbon Dioxide 20 L BUN Creatinine 0.5 L Glucose 130 H POC Glucose 185 H 163 H Lactic Acid Calcium 7.6 L AST Total Protein 5.0 L Albumin 1.9 L C-Reactive Protein Urine WBC (Auto) 01/21/20 01/21/20 01/22/20 16:22 21:17 01:28 WBC RBC 2.60 L Hgb 8.0 L Hct 23.3 L MCHC RDW Plt Count Lymph % (Auto) Lymph # Seg Neutrophils % 74.8 H Seg Neuts % (Manual) Lymphocytes % (Manual) Seg Neutrophils # Seg Neutrophils # Man Nucleated RBC % Lymphocytes # (Manual) PT INR Heparin Anti-Xa Level POC ABG pO2 ABG pH ABG Hemoglobin ABG Oxyhemoglobin ABG pO2 ABG HCO3 ABG O2 Saturation ABG Base Excess Sodium Potassium Chloride Carbon Dioxide BUN Creatinine Glucose POC Glucose 177 H 67 L Lactic Acid Calcium AST Total Protein Albumin C-Reactive Protein Urine WBC (Auto) 01/22/20 01/22/20 01/22/20 01:28 01:28 12:06 WBC RBC Hgb Hct MCHC RDW Plt Count Lymph % (Auto) Lymph # Seg Neutrophils % Seg Neuts % (Manual) Lymphocytes % (Manual) Seg Neutrophils # Seg Neutrophils # Man Nucleated RBC % Lymphocytes # (Manual) PT INR Heparin Anti-Xa Level POC ABG pO2 ABG pH ABG Hemoglobin ABG Oxyhemoglobin ABG pO2 ABG HCO3 ABG O2 Saturation ABG Base Excess Sodium Potassium Chloride 107.6 H Carbon Dioxide BUN Creatinine 0.4 L Glucose 152 H POC Glucose 203 H 140 H Lactic Acid Calcium 7.5 L AST Total Protein 4.0 L Albumin 2.0 L C-Reactive Protein Urine WBC (Auto) 01/22/20 01/22/20 01/23/20 16:24 22:55 06:10 WBC RBC 2.68 L Hgb 8.6 L Hct 24.1 L MCHC 36 H RDW Plt Count Lymph % (Auto) Lymph # Seg Neutrophils % Seg Neuts % (Manual) 71.0 H Lymphocytes % (Manual) Seg Neutrophils # Seg Neutrophils # Man Nucleated RBC % Lymphocytes # (Manual) PT INR Heparin Anti-Xa Level POC ABG pO2 ABG pH ABG Hemoglobin ABG Oxyhemoglobin ABG pO2 ABG HCO3 ABG O2 Saturation ABG Base Excess Sodium Potassium Chloride Carbon Dioxide BUN Creatinine Glucose POC Glucose 205 H 196 H Lactic Acid Calcium AST Total Protein Albumin C-Reactive Protein Urine WBC (Auto) 01/23/20 01/23/20 01/23/20 06:10 07:35 11:59 WBC RBC Hgb Hct MCHC RDW Plt Count Lymph % (Auto) Lymph # Seg Neutrophils % Seg Neuts % (Manual) Lymphocytes % (Manual) Seg Neutrophils # Seg Neutrophils # Man Nucleated RBC % Lymphocytes # (Manual) PT INR Heparin Anti-Xa Level POC ABG pO2 ABG pH ABG Hemoglobin ABG Oxyhemoglobin ABG pO2 ABG HCO3 ABG O2 Saturation ABG Base Excess Sodium Potassium Chloride 108.8 H Carbon Dioxide BUN Creatinine 0.4 L Glucose 105 H POC Glucose 111 H 123 H Lactic Acid Calcium 8.0 L AST Total Protein 4.9 L D Albumin 2.0 L C-Reactive Protein Urine WBC (Auto) 01/23/20 01/24/20 01/24/20 22:45 11:24 16:41 WBC RBC Hgb Hct MCHC RDW Plt Count Lymph % (Auto) Lymph # Seg Neutrophils % Seg Neuts % (Manual) Lymphocytes % (Manual) Seg Neutrophils # Seg Neutrophils # Man Nucleated RBC % Lymphocytes # (Manual) PT INR Heparin Anti-Xa Level POC ABG pO2 ABG pH ABG Hemoglobin ABG Oxyhemoglobin ABG pO2 ABG HCO3 ABG O2 Saturation ABG Base Excess Sodium Potassium Chloride Carbon Dioxide BUN Creatinine Glucose POC Glucose 180 H 182 H 177 H Lactic Acid Calcium AST Total Protein Albumin C-Reactive Protein Urine WBC (Auto) 01/24/20 01/25/20 01/25/20 23:11 07:12 11:35 WBC RBC Hgb Hct MCHC RDW Plt Count Lymph % (Auto) Lymph # Seg Neutrophils % Seg Neuts % (Manual) Lymphocytes % (Manual) Seg Neutrophils # Seg Neutrophils # Man Nucleated RBC % Lymphocytes # (Manual) PT INR Heparin Anti-Xa Level POC ABG pO2 ABG pH ABG Hemoglobin ABG Oxyhemoglobin ABG pO2 ABG HCO3 ABG O2 Saturation ABG Base Excess Sodium Potassium Chloride Carbon Dioxide BUN Creatinine Glucose POC Glucose 142 H 135 H 142 H Lactic Acid Calcium AST Total Protein Albumin C-Reactive Protein Urine WBC (Auto) 01/25/20 01/26/20 01/26/20 16:33 00:04 11:35 WBC RBC Hgb Hct MCHC RDW Plt Count Lymph % (Auto) Lymph # Seg Neutrophils % Seg Neuts % (Manual) Lymphocytes % (Manual) Seg Neutrophils # Seg Neutrophils # Man Nucleated RBC % Lymphocytes # (Manual) PT INR Heparin Anti-Xa Level POC ABG pO2 ABG pH ABG Hemoglobin ABG Oxyhemoglobin ABG pO2 ABG HCO3 ABG O2 Saturation ABG Base Excess Sodium Potassium Chloride Carbon Dioxide BUN Creatinine Glucose POC Glucose 247 H 233 H 200 H Lactic Acid Calcium AST Total Protein Albumin C-Reactive Protein Urine WBC (Auto) 01/26/20 01/26/20 01/26/20 16:30 16:30 17:19 WBC RBC Hgb 7.4 L Hct 22.0 L MCHC RDW Plt Count Lymph % (Auto) Lymph # Seg Neutrophils % Seg Neuts % (Manual) Lymphocytes % (Manual) Seg Neutrophils # Seg Neutrophils # Man Nucleated RBC % Lymphocytes # (Manual) PT 18.4 H INR 1.50 H Heparin Anti-Xa Level POC ABG pO2 ABG pH ABG Hemoglobin ABG Oxyhemoglobin ABG pO2 ABG HCO3 ABG O2 Saturation ABG Base Excess Sodium Potassium Chloride Carbon Dioxide BUN Creatinine Glucose POC Glucose 67 L Lactic Acid Calcium AST Total Protein Albumin C-Reactive Protein Urine WBC (Auto) 01/26/20 01/26/20 01/27/20 20:24 21:32 00:16 WBC RBC Hgb Hct MCHC RDW Plt Count Lymph % (Auto) Lymph # Seg Neutrophils % Seg Neuts % (Manual) Lymphocytes % (Manual) Seg Neutrophils # Seg Neutrophils # Man Nucleated RBC % Lymphocytes # (Manual) PT INR Heparin Anti-Xa Level POC ABG pO2 51.8 L ABG pH ABG Hemoglobin 8.5 L ABG Oxyhemoglobin 84.7 L ABG pO2 ABG HCO3 ABG O2 Saturation ABG Base Excess Sodium Potassium Chloride Carbon Dioxide BUN Creatinine Glucose POC Glucose 162 H 141 H Lactic Acid Calcium AST Total Protein Albumin C-Reactive Protein Urine WBC (Auto) 01/27/20 01/27/20 01/27/20 01:42 02:18 05:57 WBC RBC Hgb Hct MCHC RDW Plt Count Lymph % (Auto) Lymph # Seg Neutrophils % Seg Neuts % (Manual) Lymphocytes % (Manual) Seg Neutrophils # Seg Neutrophils # Man Nucleated RBC % Lymphocytes # (Manual) PT INR Heparin Anti-Xa Level 2.00 H POC ABG pO2 ABG pH ABG Hemoglobin ABG Oxyhemoglobin ABG pO2 ABG HCO3 ABG O2 Saturation ABG Base Excess Sodium Potassium Chloride Carbon Dioxide BUN Creatinine Glucose POC Glucose 183 H 124 H Lactic Acid Calcium AST Total Protein Albumin C-Reactive Protein Urine WBC (Auto) 01/27/20 01/27/20 01/27/20 06:30 06:30 12:23 WBC RBC 2.75 L Hgb 8.4 L Hct 24.9 L MCHC RDW 16.0 H Plt Count 474 H Lymph % (Auto) 12.7 L Lymph # Seg Neutrophils % 83.2 H Seg Neuts % (Manual) Lymphocytes % (Manual) Seg Neutrophils # 8.4 H Seg Neutrophils # Man Nucleated RBC % Lymphocytes # (Manual) PT INR Heparin Anti-Xa Level POC ABG pO2 ABG pH ABG Hemoglobin ABG Oxyhemoglobin ABG pO2 ABG HCO3 ABG O2 Saturation ABG Base Excess Sodium Potassium 3.5 L Chloride 110.2 H Carbon Dioxide BUN Creatinine 0.4 L Glucose 101 H POC Glucose 126 H Lactic Acid Calcium 7.8 L AST Total Protein Albumin C-Reactive Protein Urine WBC (Auto) 01/27/20 01/27/20 01/28/20 17:31 23:40 00:00 WBC RBC Hgb Hct MCHC RDW Plt Count Lymph % (Auto) Lymph # Seg Neutrophils % Seg Neuts % (Manual) Lymphocytes % (Manual) Seg Neutrophils # Seg Neutrophils # Man Nucleated RBC % Lymphocytes # (Manual) PT INR Heparin Anti-Xa Level 2.00 H POC ABG pO2 ABG pH ABG Hemoglobin ABG Oxyhemoglobin ABG pO2 ABG HCO3 ABG O2 Saturation ABG Base Excess Sodium Potassium Chloride Carbon Dioxide BUN Creatinine Glucose POC Glucose 133 H 136 H Lactic Acid Calcium AST Total Protein Albumin C-Reactive Protein Urine WBC (Auto) 01/28/20 01/28/20 01/28/20 04:26 04:26 05:35 WBC RBC Hgb 9.6 L Hct 28.5 L MCHC RDW Plt Count 508 H Lymph % (Auto) Lymph # Seg Neutrophils % Seg Neuts % (Manual) Lymphocytes % (Manual) Seg Neutrophils # Seg Neutrophils # Man Nucleated RBC % Lymphocytes # (Manual) PT INR Heparin Anti-Xa Level POC ABG pO2 ABG pH ABG Hemoglobin ABG Oxyhemoglobin ABG pO2 ABG HCO3 ABG O2 Saturation ABG Base Excess Sodium Potassium Chloride Carbon Dioxide 19 L BUN 20 H Creatinine 0.5 L Glucose 103 H POC Glucose 135 H Lactic Acid Calcium 7.9 L AST Total Protein Albumin C-Reactive Protein Urine WBC (Auto) 01/28/20 01/28/20 01/28/20 08:50 11:10 11:51 WBC RBC Hgb Hct MCHC RDW Plt Count Lymph % (Auto) Lymph # Seg Neutrophils % Seg Neuts % (Manual) Lymphocytes % (Manual) Seg Neutrophils # Seg Neutrophils # Man Nucleated RBC % Lymphocytes # (Manual) PT INR Heparin Anti-Xa Level 0.74 H POC ABG pO2 67.2 L ABG pH ABG Hemoglobin 9.3 L ABG Oxyhemoglobin ABG pO2 ABG HCO3 ABG O2 Saturation ABG Base Excess Sodium Potassium Chloride Carbon Dioxide BUN Creatinine Glucose POC Glucose 160 H Lactic Acid Calcium AST Total Protein Albumin C-Reactive Protein Urine WBC (Auto) 01/28/20 01/28/20 01/29/20 17:19 23:53 03:52 WBC RBC Hgb Hct MCHC RDW Plt Count Lymph % (Auto) Lymph # Seg Neutrophils % Seg Neuts % (Manual) Lymphocytes % (Manual) Seg Neutrophils # Seg Neutrophils # Man Nucleated RBC % Lymphocytes # (Manual) PT INR Heparin Anti-Xa Level POC ABG pO2 ABG pH 7.510 H ABG Hemoglobin 7.3 L ABG Oxyhemoglobin ABG pO2 357.0 H ABG HCO3 19.6 L ABG O2 Saturation 99.6 H ABG Base Excess -2.9 L Sodium Potassium Chloride Carbon Dioxide BUN Creatinine Glucose POC Glucose 177 H 142 H Lactic Acid Calcium AST Total Protein Albumin C-Reactive Protein Urine WBC (Auto) 01/29/20 01/29/20 01/29/20 04:58 04:58 06:01 WBC 13.1 H RBC 2.75 L Hgb 8.6 L Hct 25.6 L MCHC RDW 17.7 H Plt Count Lymph % (Auto) Lymph # Seg Neutrophils % Seg Neuts % (Manual) 91.0 H Lymphocytes % (Manual) 6.0 L Seg Neutrophils # Seg Neutrophils # Man 11.9 H Nucleated RBC % 1.0 H Lymphocytes # (Manual) 0.8 L PT INR Heparin Anti-Xa Level POC ABG pO2 ABG pH ABG Hemoglobin ABG Oxyhemoglobin ABG pO2 ABG HCO3 ABG O2 Saturation ABG Base Excess Sodium 148 H Potassium 3.5 L D Chloride 113.2 H Carbon Dioxide 21 L BUN 20 H Creatinine Glucose 137 H POC Glucose 167 H Lactic Acid Calcium 8.1 L AST Total Protein Albumin C-Reactive Protein Urine WBC (Auto) 01/29/20 01/29/20 01/29/20 11:45 17:52 23:49 WBC RBC Hgb Hct MCHC RDW Plt Count Lymph % (Auto) Lymph # Seg Neutrophils % Seg Neuts % (Manual) Lymphocytes % (Manual) Seg Neutrophils # Seg Neutrophils # Man Nucleated RBC % Lymphocytes # (Manual) PT INR Heparin Anti-Xa Level POC ABG pO2 ABG pH ABG Hemoglobin ABG Oxyhemoglobin ABG pO2 ABG HCO3 ABG O2 Saturation ABG Base Excess Sodium Potassium Chloride Carbon Dioxide BUN Creatinine Glucose POC Glucose 185 H 226 H 141 H Lactic Acid Calcium AST Total Protein Albumin C-Reactive Protein Urine WBC (Auto) 01/29/20 01/30/20 01/30/20 Unknown 03:24 04:00 WBC RBC Hgb 7.8 L Hct 23.5 L MCHC RDW Plt Count Lymph % (Auto) Lymph # Seg Neutrophils % Seg Neuts % (Manual) Lymphocytes % (Manual) Seg Neutrophils # Seg Neutrophils # Man Nucleated RBC % Lymphocytes # (Manual) PT INR Heparin Anti-Xa Level POC ABG pO2 ABG pH 7.485 H ABG Hemoglobin 6.7 L ABG Oxyhemoglobin ABG pO2 102.0 H ABG HCO3 ABG O2 Saturation ABG Base Excess Sodium Potassium Chloride Carbon Dioxide BUN Creatinine Glucose POC Glucose Lactic Acid Calcium AST Total Protein Albumin C-Reactive Protein 14.80 H Urine WBC (Auto) 01/30/20 01/30/20 01/30/20 05:50 11:15 17:07 WBC RBC Hgb Hct MCHC RDW Plt Count Lymph % (Auto) Lymph # Seg Neutrophils % Seg Neuts % (Manual) Lymphocytes % (Manual) Seg Neutrophils # Seg Neutrophils # Man Nucleated RBC % Lymphocytes # (Manual) PT INR Heparin Anti-Xa Level POC ABG pO2 ABG pH ABG Hemoglobin ABG Oxyhemoglobin ABG pO2 ABG HCO3 ABG O2 Saturation ABG Base Excess Sodium Potassium Chloride Carbon Dioxide BUN Creatinine Glucose POC Glucose 122 H 207 H 124 H Lactic Acid Calcium AST Total Protein Albumin C-Reactive Protein Urine WBC (Auto) 01/30/20 01/31/20 01/31/20 17:08 00:10 04:52 WBC RBC Hgb Hct MCHC RDW Plt Count Lymph % (Auto) Lymph # Seg Neutrophils % Seg Neuts % (Manual) Lymphocytes % (Manual) Seg Neutrophils # Seg Neutrophils # Man Nucleated RBC % Lymphocytes # (Manual) PT INR Heparin Anti-Xa Level POC ABG pO2 ABG pH 7.504 H 7.486 H ABG Hemoglobin 7.4 L 6.2 L ABG Oxyhemoglobin ABG pO2 169.2 H 121.7 H ABG HCO3 27.1 H ABG O2 Saturation 99.1 H ABG Base Excess 3.4 H Sodium Potassium Chloride Carbon Dioxide BUN Creatinine Glucose POC Glucose 191 H Lactic Acid Calcium AST Total Protein Albumin C-Reactive Protein Urine WBC (Auto) 01/31/20 01/31/20 01/31/20 05:37 11:59 12:40 WBC RBC 2.41 L Hgb 7.5 L Hct 22.3 L MCHC RDW 22.2 H Plt Count Lymph % (Auto) Lymph # Seg Neutrophils % Seg Neuts % (Manual) 94.0 H Lymphocytes % (Manual) 2.0 L Seg Neutrophils # Seg Neutrophils # Man 9.4 H Nucleated RBC % Lymphocytes # (Manual) 0.2 L PT INR Heparin Anti-Xa Level POC ABG pO2 ABG pH ABG Hemoglobin ABG Oxyhemoglobin ABG pO2 ABG HCO3 ABG O2 Saturation ABG Base Excess Sodium Potassium Chloride Carbon Dioxide BUN Creatinine Glucose POC Glucose 175 H 220 H Lactic Acid Calcium AST Total Protein Albumin C-Reactive Protein Urine WBC (Auto) 01/31/20 01/31/20 12:40 14:40 WBC RBC Hgb Hct MCHC RDW Plt Count Lymph % (Auto) Lymph # Seg Neutrophils % Seg Neuts % (Manual) Lymphocytes % (Manual) Seg Neutrophils # Seg Neutrophils # Man Nucleated RBC % Lymphocytes # (Manual) PT INR Heparin Anti-Xa Level POC ABG pO2 124.7 H ABG pH 7.542 H ABG Hemoglobin 7.8 L ABG Oxyhemoglobin ABG pO2 ABG HCO3 ABG O2 Saturation ABG Base Excess Sodium 151 H Potassium 2.1 L* D Chloride 108.9 H Carbon Dioxide BUN 22 H Creatinine Glucose 194 H POC Glucose Lactic Acid Calcium 8.1 L AST Total Protein 4.8 L Albumin 2.3 L C-Reactive Protein Urine WBC (Auto) Chest x-ray: image reviewed (ETT in good position; no new infiltrate) Allied health notes reviewed: nursing
[2020-01-31] MEDS: DONEPEZIL 10 MG TAB PO SCH (21:08)
[2020-01-31] MEDS: traZODone 50 MG TAB PO SCH (21:09)
[2020-01-31] MEDS: MIRTAZAPINE 15 MG TAB PO SCH (21:10)
[2020-02-01] MEDS: INSULIN REGULAR, HUMAN 100 UNIT/ML 3ML VIAL SUB-Q SCH ×4 (00:04→18:17)
[2020-02-01 03:37] LABS: ABG HCO3 29.6 mmol/L (20.0-26.0); ABG Methemoglobin 0.7 % (0.0-1.5); ABG Oxygen Saturation 98.7 % (95.0-99.0); ABG PCO2 33.6 mm Hg; ABG PH 7.564 pH Units (7.350-7.450); ABG PO2 124.1 mm Hg (80.0-90.0)
[2020-02-01 05:09] LABS: Hematocrit 22.8 % (30.3-42.9); Hemoglobin 7.6 gm/dl (10.1-14.3); Mean Corpuscular HGB Conc 33 % (30-34); Mean Corpuscular Volume 93 fl (79-97); Platelet Count 319 K/mm3 (140-440); Red Blood Count 2.47 M/mm3 (3.65-5.03)
--- NOTE | 2020-02-01 05:17 | XRay Report ---
CHEST 1 VIEW 02/01/2020 4:06 AM INDICATION / CLINICAL INFORMATION: follow up respiratory failure. COMPARISON: 01/31/2020 FINDINGS: SUPPORT DEVICES: Stable, satisfactory device positioning. HEART / MEDIASTINUM: Stable. LUNGS / PLEURA: Mildly improved right lower lung pulmonary opacity. No pneumothorax. ADDITIONAL FINDINGS: No significant additional findings. IMPRESSION: 1. Mild improvement in right lower lung pulmonary opacity. Signer Name: Sundar Spring MD Signed: 02/01/2020 5:13 AM Workstation Name: [id number]
[2020-02-01 05:18] LABS: Red Cell Distribution Width 22.7 % (13.2-15.2)
[2020-02-01] MEDS: PIPERACIL/TAZOBACTA 4.5/NS 100 4.5 GM/100 ML VIAL IV SCH ×3 (05:36→22:34)
[2020-02-01] MEDS: FUROSEMIDE 40 MG/4 ML INJ IV SCH ×2 (05:38→17:30)
[2020-02-01] MEDS: HYDROCORTISONE SOD SUCC 100 MG/2 ML VIAL IV SCH ×3 (05:38→21:59)
[2020-02-01 06:26] LABS: Blood Urea Nitrogen 23 mg/dL (7-17); Hemolysis Index 2
[2020-02-01 06:27] LABS: BUN/Creatinine Ratio 46
[2020-02-01 06:45] LABS: Basophils % (Manual) 0 % (0.0-1.8); Eosinophils % (Manual) 0 % (0.0-4.3); Total Cells Counted 100
[2020-02-01 06:46] LABS: Anisocytosis 1+
[2020-02-01 06:47] LABS: Burr Cells Few; Hypochromasia 1+; Ovalocytes Few; Platelet Estimate Consistent w Auto; Target Cells Few
[2020-02-01] MEDS ORDERED: POTASSIUM CHLORIDE 20 MEQ PACKET FEEDTUBE ONE ×2 (07:00→10:00)
[2020-02-01] MEDS ORDERED: POTASSIUM CHLORIDE 10 MEQ 10 MEQ/100 ML BAG IV SCH (07:00)
--- NOTE | 2020-02-01 07:58 | Progress Note ---
Assessment and Plan Assessment and plan: --Severe hypokalemia; potassium 2.6 Replenished with 20 mEq KCl IV every 2 hours x 2 doses 40 mEq of oral KCl via [place], normal magnesium --Hypophosphatemia; Replenished with potassium phosphate IV Closely monitor electrolytes --Shock/ septic shock On Levophed, IV fluids and IV antibiotic Zosyn Closely monitor -- s/p PEA cardiac arrest CPR per ACLS protocol with ROSC Check code record Intubated on vent, supportive care Poor prognosis -- Hydropneumothorax, not POA Patient developed hydropneumothorax on 01/15. Surgery evaluated s/p chest tube placed on 01/15. Improved, s/p chest tube removed 01/22 --Acute respiratory failure, not POA likely from Hydropneumothorax, and recurrent left pleural effusion s/p chest tube - improved o2 saturation Now developed recurrent pleural effusion - ordered for thoracentesis, cont iv lasix patient intubated today -- large Left pleural effusion 01/25 Wait for thoracentesis, continue Lasix for now, stopped any IV fluid -- Hypernatremia, Resolved -- Sepsis, likely UTI and infected Sacral decubitus ulcer On zosyn now, cont to Monitor vital signs closely -- UTI (urinary tract infection) Completed antibiotics --h/o Bilateral pulmonary embolism Had pulmonary embolism 7 months ago. CTA chest and LE doppler showed no acute PE or DVT eliquis now stopped --Sacral decubitus ulcer, infected/POA s/p wound debridement on 01/15. Wound vac in place ID recommend cont zosyn 4.5 g IV q8h total 6 weeks stop date 02/27/2020 -- Uncontrolled diabetes mellitus DM management with SSI, TF -- Dementia: Continue donepezil -- Moderate protein-calorie malnutrition She is not eating well and is getting feeds through the NG tube. Discussed with - this problem has been chronic agreed for PEG PEG placed 01/13. 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 The aggregate critical care time was [32] minutes. This time is in addition to time spent performing reported procedures but includes the following: [x] Data Review and interpretation [x] Patient assessment and monitoring of vital signs [x] Documentation [x] Medication orders and management Monitor closely and adjust management as needed Plan of care reviewed with the patient's nurse History Interval history: Have seen and examined the patient at the bedside today Patient's chart and medications reviewed patient patient continues to have severe Hypokalemia, replaced with IV and p.o. KCl Patient remains intubated on vent Unresponsive Vital signs noted Hospitalist Physical - Constitutional Vitals: Temp Pulse Resp BP Pulse Ox 97.6 F 72 20 131/100 100 02/01/20 03:03 02/01/20 06:30 02/01/20 06:30 02/01/20 06:30 02/01/20 06:30 General appearance: Present: mild distress, well-nourished, other (Intubated on vent) - EENT Eyes: Present: PERRL, EOM intact - Neck Neck: Present: supple, normal ROM - Respiratory Respiratory effort: normal Respiratory: bilateral: diminished, negative: rales, rhonchi, wheezing - Cardiovascular Rhythm: regular Heart Sounds: Present: S1 & S2 - Extremities Extremities: no ischemia, No edema Peripheral Pulses: within normal limits - Abdominal General gastrointestinal: soft, non-tender, non-distended, normal bowel sounds, other (PEG in place) - Integumentary Integumentary: Present: clear, warm - Psychiatric Psychiatric: other (Noncommunicative) - Neurologic Neurologic: other (Unresponsive on vent) Results - Labs CBC & Chem 7: 02/01/20 04:32 02/01/20 04:32 Labs: Laboratory Last Values WBC 11.9 K/mm3 (4.5-11.0) H 02/01/20 04:32 RBC 2.47 M/mm3 (3.65-5.03) L 02/01/20 04:32 Hgb 7.6 gm/dl (10.1-14.3) L 02/01/20 04:32 Hct 22.8 % (30.3-42.9) L 02/01/20 04:32 MCV 93 fl (79-97) 02/01/20 04:32 MCH 31 pg (28-32) 02/01/20 04:32 MCHC 33 % (30-34) 02/01/20 04:32 RDW 22.7 % (13.2-15.2) H 02/01/20 04:32 Plt Count 319 K/mm3 (140-440) 02/01/20 04:32 Lymph % (Auto) 12.7 % (13.4-35.0) L 01/27/20 06:30 [place] % (Auto) 3.9 % (0.0-7.3) 01/27/20 06:30 Eos % (Auto) 0.1 % (0.0-4.3) 01/27/20 06:30 Baso % (Auto) 0.1 % (0.0-1.8) 01/27/20 06:30 Lymph # 1.3 K/mm3 (1.2-5.4) 01/27/20 06:30 [place] # 0.4 K/mm3 (0.0-0.8) 01/27/20 06:30 Eos # 0.0 K/mm3 (0.0-0.4) 01/27/20 06:30 Baso # 0.0 K/mm3 (0.0-0.1) 01/27/20 06:30 Add Manual Diff Complete 02/01/20 04:32 Total Counted 100 02/01/20 04:32 Seg Neutrophils % Loan Interviewer 01/31/20 12:40 Seg Neutrophils # 8.4 K/mm3 (1.8-7.7) H 01/27/20 06:30 Seg Neuts % (Manual) 90.0 % (40.0-70.0) H 02/01/20 04:32 Band Neutrophils % 0 % 02/01/20 04:32 Lymphocytes % (Manual) 5.0 % (13.4-35.0) L 02/01/20 04:32 Reactive Lymphs % (Man) 0 % 02/01/20 04:32 Monocytes % (Manual) 5.0 % (0.0-7.3) 02/01/20 04:32 Eosinophils % (Manual) 0 % (0.0-4.3) 02/01/20 04:32 Basophils % (Manual) 0 % (0.0-1.8) 02/01/20 04:32 Metamyelocytes % 0 % 02/01/20 04:32 Myelocytes % 0 % 02/01/20 04:32 Promyelocytes % 0 % 02/01/20 04:32 Blast Cells % 0 % 02/01/20 04:32 Nucleated RBC % Not Reportable 02/01/20 04:32 Seg Neutrophils # Man 10.7 K/mm3 (1.8-7.7) H 02/01/20 04:32 Band Neutrophils # 0.0 K/mm3 02/01/20 04:32 Lymphocytes # (Manual) 0.6 K/mm3 (1.2-5.4) L 02/01/20 04:32 Abs React Lymphs (Man) 0.0 K/mm3 02/01/20 04:32 Monocytes # (Manual) 0.6 K/mm3 (0.0-0.8) 02/01/20 04:32 Eosinophils # (Manual) 0.0 K/mm3 (0.0-0.4) 02/01/20 04:32 Basophils # (Manual) 0.0 K/mm3 (0.0-0.1) 02/01/20 04:32 Metamyelocytes # 0.0 K/mm3 02/01/20 04:32 Myelocytes # 0.0 K/mm3 02/01/20 04:32 Promyelocytes # 0.0 K/mm3 02/01/20 04:32 Blast Cells # 0.0 K/mm3 02/01/20 04:32 WBC Morphology Not Reportable 02/01/20 04:32 Hypersegmented Neuts Not Reportable 02/01/20 04:32 Hyposegmented Neuts Not Reportable 02/01/20 04:32 Hypogranular Neuts Not Reportable 02/01/20 04:32 Smudge Cells Not Reportable 02/01/20 04:32 Toxic Granulation Not Reportable 02/01/20 04:32 Toxic Vacuolation Not Reportable 02/01/20 04:32 Dohle Bodies Not Reportable 02/01/20 04:32 Pelger-Huet Anomaly Not Reportable 02/01/20 04:32 Lata Rods Not Reportable 02/01/20 04:32 Platelet Estimate Consistent w auto 02/01/20 04:32 Clumped Platelets Not Reportable 02/01/20 04:32 Plt Clumps, EDTA Not Reportable 02/01/20 04:32 Large Platelets Not Reportable 02/01/20 04:32 Giant Platelets Not Reportable 02/01/20 04:32 Platelet Satelliting Not Reportable 02/01/20 04:32 Plt Morphology Comment Not Reportable 02/01/20 04:32 RBC Morphology Not Reportable 02/01/20 04:32 Dimorphic RBCs Not Reportable 02/01/20 04:32 Polychromasia Not Reportable 02/01/20 04:32 Hypochromasia 1+ 02/01/20 04:32 Poikilocytosis Not Reportable 02/01/20 04:32 Anisocytosis 1+ 02/01/20 04:32 Microcytosis Not Reportable 02/01/20 04:32 Macrocytosis Not Reportable 02/01/20 04:32 Spherocytes Not Reportable 02/01/20 04:32 Pappenheimer Bodies Not Reportable 02/01/20 04:32 Sickle Cells Not Reportable 02/01/20 04:32 Target Cells Few 02/01/20 04:32 Tear Drop Cells Not Reportable 02/01/20 04:32 Ovalocytes Few 02/01/20 04:32 Helmet Cells Not Reportable 02/01/20 04:32 [place] Bodies Not Reportable 02/01/20 04:32 We[place]man Rings Not Reportable 02/01/20 04:32 Leonidas Cells Few 02/01/20 04:32 Bite Cells Not Reportable 02/01/20 04:32 Crenated Cell Not Reportable 02/01/20 04:32 Elliptocytes Not Reportable 02/01/20 04:32 Acanthocytes (Spur) Not Reportable 02/01/20 04:32 Rouleaux Not Reportable 02/01/20 04:32 Hemoglobin C Crystals Not Reportable 02/01/20 04:32 Schistocytes Not Reportable 02/01/20 04:32 Malaria parasites Not Reportable 02/01/20 04:32 Gideon Bodies Not Reportable 02/01/20 04:32 Hem Pathologist Commnt No 02/01/20 04:32 PT 18.4 Sec. (12.2-14.9) H 01/26/20 16:30 INR 1.50 (0.87-1.13) H 01/26/20 16:30 APTT 33.9 Sec. (24.2-36.6) 01/26/20 16:30 Heparin Anti-Xa Level 0.74 U.I./ml (0.3-0.7) H 01/28/20 08:50 ABG pH 7.564 pH Units (7.350-7.450) H 02/01/20 03:14 POC ABG pCO2 35.3 mmHg (32.0-48.0) 01/31/20 14:40 ABG pCO2 33.6 mm Hg 02/01/20 03:14 POC ABG pO2 124.7 mmHg (83-108) H 01/31/20 14:40 ABG pO2 124.1 mm Hg (80.0-90.0) H 02/01/20 03:14 POC ABG HCO3 29.6 01/31/20 14:40 ABG HCO3 29.6 mmol/L (20.0-26.0) H 02/01/20 03:14 ABG O2 Saturation 98.7 % (95.0-99.0) 02/01/20 03:14 ABG O2 Content 10.6 (0.0-44) 02/01/20 03:14 POC ABG Base Excess 6.7 01/31/20 14:40 ABG Base Excess 7.0 mmol/L (-2.0-3.0) H 02/01/20 03:14 ABG Hemoglobin 7.6 gm/dl (12.0-16.0) L 02/01/20 03:14 ABG Oxyhemoglobin 97.8 (94-98) 01/31/20 14:40 ABG Carboxyhemoglobin 1.4 % (0.0-5.0) 02/01/20 03:14 ABG Methemoglobin 0.7 % (0.0-1.5) 02/01/20 03:14 Oxyhemoglobin 96.6 % (95.0-99.0) 02/01/20 03:14 Carboxyhemoglobin 0.5 (0.5-1.5) 01/31/20 14:40 FiO2 25 % 02/01/20 03:14 Sodium 149 mmol/L (137-145) H 02/01/20 04:32 Potassium 2.6 mmol/L (3.6-5.0) L* D 02/01/20 04:32 Chloride 106.8 mmol/L (98-107) 02/01/20 04:32 Carbon Dioxide 33 mmol/L (22-30) H 02/01/20 04:32 Anion Gap 12 mmol/L 02/01/20 04:32 BUN 23 mg/dL (7-17) H 02/01/20 04:32 Creatinine 0.5 mg/dL (0.6-1.2) L 02/01/20 04:32 Estimated GFR > 60 ml/min 02/01/20 04:32 BUN/Creatinine Ratio 46 % 02/01/20 04:32 Glucose 174 mg/dL (65-100) H 02/01/20 04:32 POC Glucose 187 (70-105) H 02/01/20 05:28 Hemoglobin A1c 5.3 % (4-6) 01/11/20 00:45 Lactic Acid 1.30 mmol/L (0.7-2.0) 01/26/20 23:27 Calcium 8.0 mg/dL (8.4-10.2) L 02/01/20 04:32 Phosphorus 1.60 mg/dL (2.5-4.5) L 02/01/20 04:32 Magnesium 1.80 mg/dL (1.7-2.3) 02/01/20 04:32 Total Bilirubin 0.20 mg/dL (0.1-1.2) 01/31/20 12:40 AST 18 units/L (5-40) 01/31/20 12:40 ALT 23 units/L (7-56) 01/31/20 12:40 Alkaline Phosphatase 60 units/L (35-129) 01/31/20 12:40 C-Reactive Protein 14.80 mg/dL (0.00-1.30) H 01/29/20 Unknown Total Protein 4.8 g/dL (6.3-8.2) L 01/31/20 12:40 Albumin 2.3 g/dL (3.9-5) L 01/31/20 12:40 Albumin/Globulin Ratio 0.9 % 01/31/20 12:40 TSH 2.440 mlU/mL (0.270-4.200) 01/10/20 10:10 Procalcitonin 1.86 ng/mL (<0.15) 01/29/20 Unknown Urine Color [place] (Yellow) 01/08/20 Unknown Urine Turbidity Cloudy (Clear) 01/08/20 Unknown Urine pH 5.0 (5.0-7.0) 01/08/20 Unknown Ur Specific [place] 1.018 (1.003-1.030) 01/08/20 Unknown Urine Protein 30 mg/dl mg/dL (Negative) 01/08/20 Unknown Urine Glucose (UA) Neg mg/dL (Negative) 01/08/20 Unknown Urine Ketones Neg mg/dL (Negative) 01/08/20 Unknown Urine Blood Mod (Negative) 01/08/20 Unknown Urine Nitrite Neg (Negative) 01/08/20 Unknown Urine Bilirubin Neg (Negative) 01/08/20 Unknown Urine Urobilinogen < 2.0 mg/dL (<2.0) 01/08/20 Unknown Ur Leukocyte Esterase Sm (Negative) 01/08/20 Unknown Urine WBC (Auto) 11.0 /HPF (0.0-6.0) H 01/08/20 Unknown Urine RBC (Auto) 7.0 /HPF (0.0-6.0) 01/08/20 Unknown U Epithel Cells (Auto) < 1.0 /HPF (0-13.0) 01/08/20 Unknown Urine Bacteria (Auto) 1+ /HPF (Negative) 01/08/20 Unknown Urine Mucus 2+ /HPF 01/08/20 Unknown Urine Yeast (Budding) 1+ /HPF 01/08/20 Unknown Vancomycin Trough 7.9 ug/mL (5.0-20.0) 01/17/20 16:04 Microbiology: Microbiology 01/28/20 10:45 Bronchial Washings - Left Lower Lobe Respiratory Culture - Final Mejía/IV: Voiding Method Incontinent IV Catheter Type [Left Upper PICC Line arm] IV Catheter Type [Right Upper INT / Saline Lock arm] IV Catheter Type [Right Peripheral IV Forearm] Active Medications - Current Medications Current Medications: Generic Name Dose Route Start Last Admin Trade Name Freq PRN Reason Stop Dose Admin Acetaminophen 650 mg 01/08/20 23:14 01/18/20 06:03 Tylenol PO 650 mg Q4H PRN Administration Pain MILD(1-3)/Fever >100.5/GARCIA Lipase/Protease/Amylase 1 each 09/12/20 08:[address] 10,500 Unit FEEDTUBE PRN PRN For Clogged Feeding Tube Atorvastatin Calcium 10 mg 01/09/20 22:00 01/31/20 21:09 Atorvastatin PO 10 mg QHS BRO Administration Dextrose 0 ml 01/08/20 23:14 01/26/20 17:44 D50w (25gm) Syringe IV 25 ml Q30MIN PRN Administration Hypoglycemia Protocol Donepezil HCl 10 mg 01/09/20 22:00 01/31/20 21:08 Aricept PO 10 mg QHS BRO Administration Famotidine 20 mg 01/27/20 10:00 01/31/20 21:10 Pepcid PO 20 mg BID BRO Administration Fentanyl 50 mcg 01/28/20 10:57 Sublimaze IV Q10MIN PRN ANALGESIA Fluticasone Propionate 100 mcg 01/25/20 20:00 01/26/20 06:09 Flonase NS 100 mcg QDAY PRN Administration Nasal Congestion Furosemide 40 mg 01/29/20 06:00 02/01/20 05:38 Lasix IV 40 mg 0600,1800 BRO Administration Heparin Sodium (Porcine) 5,000 unit 01/28/20 10:00 01/31/20 21:10 Heparin SUB-Q 5,000 unit Q12HR BRO Administration Hydrocortisone Sodium Succinate 100 mg 01/29/20 15:00 02/01/20 05:38 Solu-Cortef IV 100 mg Q8HR BRO Administration Hydrophilic Ointment 1 applic 01/28/20 10:57 Vaseline Lip Therapy TP Q2HR PRN Dry Lips Piperacillin Sod/Tazobactam Sod 4.5 gm in 100 mls @ 200 mls/hr 01/19/20 14:00 02/01/20 05:36 Zosyn/Ns 4.5gm/100ml IV 02/27/20 22:29 200 mls/hr Q8HR BRO Administration Protocol Norepinephrine 4 mg in 250 mls @ 7.5 mls/hr 01/26/20 20:00 01/30/20 06:00 Levophed Drip 4 Mg/Ns 250 Ml IV 3 mcg/min TITR BRO 11.25 mls/hr Titration Protocol 2 MCG/MIN Fentanyl Citrate 2,000 mcg in 100 mls @ 1.603 mls/hr 01/28/20 11:00 Fentanyl Drip Premix IV TITR BRO Protocol 0.5 MCG/KG/HR Potassium Chloride 20 meq in 100 mls @ 100 mls/hr 02/01/20 07:50 Kcl 20meq/100ml IV 02/01/20 08:49 Q2HR ONE Insulin Human Regular 0 unit 01/27/20 12:00 02/01/20 05:35 Humulin R SUB-Q 1 unit Q6HR BRO Administration Protocol Magnesium Hydroxide 30 ml 01/08/20 23:14 Milk Of Magnesia PO Q4H PRN Constipation Megestrol Acetate 400 mg 01/12/20 11:00 01/31/20 10:46 Megestrol PO 400 mg QDAY BRO Administration Mirtazapine 15 mg 01/09/20 22:00 01/31/20 21:10 Remeron PO 15 mg QHS BRO Administration Multi-Ingred Cream/Lotion/Oil/Oint 1 applic 01/28/20 10:57 Artificial Tears Ophth Oint OU Q4HR PRN Dry Eye(s) Ondansetron HCl 4 mg 01/08/20 23:14 Zofran IV Q8H PRN Nausea And Vomiting Simple Syrup 15 ml 01/17/20 08:37 Simple Syrup FEEDTUBE PRN PRN Hypoglycemia Simple Syrup 30 ml 01/17/20 08:37 Simple Syrup FEEDTUBE PRN PRN Hypoglycemia Sodium Bicarbonate 325 mg 01/17/20 08:37 Sodium Bicarbonate FEEDTUBE PRN PRN For Clogged Feeding Tube Sodium Chloride 10 ml 01/09/20 10:00 02/01/20 00:06 Sodium Chloride Flush Syringe 10 Ml IV 10 ml BID BRO Administration Sodium Chloride 10 ml 01/08/20 23:14 Sodium Chloride Flush Syringe 10 Ml IV PRN PRN LINE FLUSH Trazodone HCl 25 mg 01/09/20 22:00 01/31/20 21:09 Desyrel PO 25 mg QHS BRO Administration Nutrition/Malnutrition Assess - Dietary Evaluation Nutrition/Malnutrition Findings: Nutrition Notes Start: 01/09/20 12:13 Freq: Status: Active Protocol: Document 01/30/20 13:51 [email or web address] (Rec: 01/30/20 14:35 [email or web address]) Co-Sign 01/30/20 13:51 LP Nutrition Notes Initial or Follow up Reassessment Current Diagnosis Decubitus(Pressure Ulcer), Diabetes,Sepsis Other Pertinent Diagnosis UTI, dementia, PE, Sacral wound Current Diet Vital AF 1.2 at 50ml/hr Labs/Tests 01/28 Na 148 K 3.5 BUN 20 BG 137 Pertinent Medications Levophed Height 5 ft 2 in Weight 62.5 kg [place] Body Weight (kg) 50.00 BMI 25.2 Weight change and time frame Wt change noted Subjective/Other Information F/U for TF tolerance. Per chart, Pt TF running at 50ml/ hr. Percent of energy/protein needs met: 92%/100% Burn Absent Trauma Absent Current % PO Negligible Minimum of two criteria Yes Fluid Accumulation Moderate to Severe (severe) Reduced Blower Mechanic Strength Measurably Reduced (severe) #3 Nutrition Diagnosis Malnutrition Diagnosis Progress(for reassessment Continues documentation) #2 Nutrition Diagnosis Inadequate oral intake Diagnosis Progress(for reassessment Continues documentation) #1 Nutrition Diagnosis Increased nutrient needs ( specify in comment below) Diagnosis Progress(for reassessment Continues documentation) Is patient on ventilator? Yes Is Patient Ambulatory and/or Out of Bed No REE-([facility]-confined to bed) 1323.876 Kcal/Kg value to use for calculation 25 Approximate Energy Requirements Using 1563 kcal/Kg Calculation Used for Recommendations Kcal/kg Additional Notes Protein needs 77-128g(1.2-2g/ kg) Fluid needs 1ml/kcal Nutrition Intervention Change Diet Order: Continue Nutrition Support: Vital AF 1.2 at 50ml/hr Flush 80ml q4h Flush 200ml q4h per MD Kcal 1,440 Protein (gm) 90 Fluid (mL) 973 Goal #1 Meet at least 80% of kcal and protein needs via TF Goal #2 TF tolerance Goal #3 Wound Healing Anticipated Discharge Needs: Undetermined at this time Follow-Up By: 02/03/20 Additional Comments F/U TF tolerance
[2020-02-01] MEDS: POTASSIUM CHLORIDE 20 MEQ 20 MEQ/100 ML BAG IV SCH ×2 (08:20→09:59)
[2020-02-01] MEDS ORDERED: POTASSIUM PHOSPHATE 30 MMOL in SODIUM CHLORIDE 0.9% 500 ML 500 ML IV ONE (09:00)
[2020-02-01] MEDS: MEGESTROL 400 MG/10 ML ORAL LIQD PO SCH (09:19)
[2020-02-01] MEDS: HEPARIN 5,000 UNIT/1 ML VIAL SUB-Q SCH ×2 (09:19→21:59)
[2020-02-01] MEDS: FAMOTIDINE 20 MG TAB PO SCH ×2 (09:19→21:57)
--- NOTE | 2020-02-01 15:27 | Progress Note ---
Assessment and Plan Severe sepsis with shock. Left lung atelectasis. Left pleural effusion. Acute hypoxemic respiratory failure. Acute possibly on chronic encephalopathy. History of diabetes. Urinary tract infection. History of pulmonary embolism, diagnosed several months ago. Sacral decubitus ulcer. Dementia. Anemia that is normocytic. (AMS remains rate limiting factor to safe extubation at this point) - replace electrolytes per protocol - tentative tracheostomy discussion withy this week - begin stress dose steroids taper (75 mg q8h X 1 day; 50 mg q8h, q12h then 25mg bid X 1 day then stop) - continue daily SAT and SBT assessment as tolerated - repeat procalcitonin as necessary to aid clinical decision making while on systemic steroids - follow BAL studies - keep set TV at 350 ml's re: alkalosis - continue free water at 200 mls q4h - continue care as below otherwise; - continue to wean supplemental oxygen for target O2 sat's > 92% acutely - VAP bundle addressed - continue lung protective strategies - continue bronchodilators with pulmonary hygiene per RT - wean per pulmonary driven protocols otherwise - continue accuchecks with glycemic control per SSI (While critically ill target blood glucose of 140-180 mg/dL; avoid hypoglycemia) - sedation prn for target RASS 0 to -1 - avoid nephrotoxins, renally dose all medications - continue to avoid benzodiazepine's, reduce the possibility of delirium - complete AB's per ID rec's - prn analgesia per CPOT score - Maintenance of sleep-wake cycle, avoid delirium - continue enteral nutritional support at goal rate as tolerated - G.I. & VTE prophylaxis with famotidine and heparin - PT/OT/ROM exercises - continue mobility protocols for pressure ulcer prophylaxis - Monitor hemodynamics closely - continue other care per attending / other consultants - discharge planning ongoing concurrently .... Re-evaluate in am & prn CONDITION: CRITICAL PROGNOSIS: GUARDED CODE STATUS: FULL CODE The high probability of a clinically significant, sudden or life-threatening deterioration of the [respiratory, cardiovascular & neurologic] system(s) required my full and direct attention, intervention and personal management. The aggregate critical care time was [34] minutes without overlap. Time includes spent on; [x] Data Review and interpretation [x] Patient assessment and monitoring of vital signs [x] Documentation [x] Medication orders and management Subjective Date of service: 02/01/20 Principal diagnosis: Septic Shock; S/P Cardiac Arrest; Ac. hypoxemic resp failure; UTI Interval history: Patient is seen today for: Severe sepsis with shock; S/P Cardiac Arrest; L. lung atelectasis / L. pleural effusion; Acute hypoxemic respiratory failure; Acute possibly on chronic encephalopathy; DM II; UTI; VTE Seen and examined at bedside; 24hour events reviewed; nursing and respiratory care staff consulted; no adverse overnight events reported to me; resting peacefully in bed; remains on MVS; tolerating daytime SBT's; AMS is persistent Objective Vital Signs - 12hr 02/01/20 02/01/20 02/01/20 03:30 03:45 04:01 Pulse Rate 70 71 72 Respiratory 14 18 16 Rate Blood Pressure 124/52 121/46 126/54 O2 Sat by Pulse 100 100 100 Oximetry 02/01/20 02/01/20 02/01/20 04:15 04:23 04:30 Pulse Rate 80 72 77 Respiratory 20 18 Rate Blood Pressure 114/51 112/55 O2 Sat by Pulse 100 100 100 Oximetry 02/01/20 02/01/20 02/01/20 04:45 05:00 05:15 Pulse Rate 68 67 77 Respiratory 15 16 20 Rate Blood Pressure 102/45 106/49 114/58 O2 Sat by Pulse 100 100 100 Oximetry 02/01/20 02/01/20 02/01/20 05:31 05:45 06:00 Pulse Rate 101 H 78 79 Respiratory 12 17 17 Rate Blood Pressure 114/58 126/57 122/48 O2 Sat by Pulse 100 100 100 Oximetry 02/01/20 02/01/20 02/01/20 06:15 06:30 06:45 Pulse Rate 81 72 75 Respiratory 24 20 20 Rate Blood Pressure 115/48 131/100 131/100 O2 Sat by Pulse 100 100 100 Oximetry 02/01/20 02/01/20 02/01/20 07:01 07:15 07:30 Pulse Rate 74 67 66 Respiratory 21 18 17 Rate Blood Pressure 123/72 123/72 112/66 O2 Sat by Pulse 100 100 100 Oximetry 02/01/20 02/01/20 02/01/20 07:45 08:00 08:15 Pulse Rate 65 70 66 Respiratory 20 21 19 Rate Blood Pressure 112/62 110/63 119/72 O2 Sat by Pulse 100 100 100 Oximetry 09/02/01/20 02/01/20 08:28 08:30 08:35 Pulse Rate 63 62 70 Respiratory 19 18 Rate Blood Pressure 105/56 105/56 105/56 O2 Sat by Pulse 100 100 100 Oximetry 02/01/20 02/01/20 02/01/20 08:45 09:01 09:15 Pulse Rate 67 64 71 Respiratory 18 16 19 Rate Blood Pressure 115/53 116/46 116/46 O2 Sat by Pulse 100 100 100 Oximetry 02/01/20 02/01/20 02/01/20 09:30 09:45 10:01 Pulse Rate 73 84 84 Respiratory 20 13 18 Rate Blood Pressure 117/73 117/73 112/88 O2 Sat by Pulse 100 100 100 Oximetry 02/01/20 02/01/20 02/01/20 10:15 10:30 10:45 Pulse Rate 75 75 75 Respiratory 16 17 18 Rate Blood Pressure 100/62 106/62 118/55 O2 Sat by Pulse 100 100 100 Oximetry 02/01/20 02/01/20 02/01/20 11:00 11:15 11:30 Pulse Rate 78 81 80 Respiratory 19 21 16 Rate Blood Pressure 110/52 105/55 111/59 O2 Sat by Pulse 100 100 100 Oximetry 02/01/20 02/01/20 02/01/20 11:45 12:00 12:15 Pulse Rate 76 75 77 Respiratory 19 21 16 Rate Blood Pressure 103/54 109/56 123/58 O2 Sat by Pulse 100 100 100 Oximetry 02/01/20 02/01/20 02/01/20 12:31 12:45 13:00 Pulse Rate 91 H 77 80 Respiratory 18 16 16 Rate Blood Pressure 94/75 104/59 93/69 O2 Sat by Pulse 100 100 100 Oximetry 02/01/20 02/01/20 02/01/20 13:15 13:30 13:45 Pulse Rate 78 78 82 Respiratory 16 14 14 Rate Blood Pressure 104/59 93/57 106/58 O2 Sat by Pulse 100 100 100 Oximetry 02/01/20 02/01/20 02/01/20 14:00 14:15 14:30 Pulse Rate 73 75 77 Respiratory 18 12 19 Rate Blood Pressure 104/51 101/53 87/59 O2 Sat by Pulse 100 100 100 Oximetry 02/01/20 02/01/20 14:45 15:00 Pulse Rate 76 69 Respiratory 13 13 Rate Blood Pressure 87/59 101/51 O2 Sat by Pulse 100 100 Oximetry Constitutional: no acute distress, other (elderly looking female witrh mildly increased respiratory effort at rest on MVS) Eyes: non-icteric ENT: oropharynx moist, other (ETT 23 cm FLORENCIO) Neck: supple, no lymphadenopathy, no JVD Effort: mildly labored Ascultation: Bilateral: diminished breath sounds, rales (bases predominant) Percussion: Bilateral: not dull Cardiovascular: regular rate and rhythm Gastrointestinal: normoactive bowel sounds, soft, non-tender, non-distended Integumentary: decubitus ulcer (see [facility] notes) Extremities: no cyanosis, no edema, pulses normal Neurologic: pupils equal and round, unable to assess Psychiatric: other (Unable to assess re: AMS) CBC and BMP: 02/01/20 04:32 02/01/20 04:32 ABG, PT/INR, D-dimer: ABG ABG pH 7.564 pH Units (7.350-7.450) H 02/01/20 03:14 POC ABG pCO2 35.3 mmHg (32.0-48.0) 01/31/20 14:40 ABG pCO2 33.6 mm Hg 02/01/20 03:14 POC ABG pO2 124.7 mmHg (83-108) H 01/31/20 14:40 ABG pO2 124.1 mm Hg (80.0-90.0) H 02/01/20 03:14 POC ABG HCO3 29.6 01/31/20 14:40 ABG O2 Saturation 98.7 % (95.0-99.0) 02/01/20 03:14 PT/INR, D-dimer PT 18.4 Sec. (12.2-14.9) H 01/26/20 16:30 INR 1.50 (0.87-1.13) H 01/26/20 16:30 Abnormal lab findings: Abnormal Labs 01/08/20 01/08/20 01/08/20 16:29 16:29 16:29 WBC 13.5 H RBC Hgb Hct MCHC RDW 15.5 H Plt Count Lymph % (Auto) Lymph # Seg Neutrophils % Seg Neuts % (Manual) 85.0 H Lymphocytes % (Manual) 11.0 L Seg Neutrophils # Seg Neutrophils # Man 11.5 H Nucleated RBC % Lymphocytes # (Manual) PT INR Heparin Anti-Xa Level POC ABG pO2 ABG pH ABG Hemoglobin ABG Oxyhemoglobin ABG pO2 ABG HCO3 ABG O2 Saturation ABG Base Excess Sodium 161 H* Potassium Chloride 125.5 H Carbon Dioxide 20 L BUN 30 H Creatinine Glucose 115 H POC Glucose Lactic Acid 2.20 H* Calcium 7.9 L AST 48 H Phosphorus Total Protein Albumin 2.5 L C-Reactive Protein Urine WBC (Auto) 01/08/20 01/08/20 01/08/20 19:02 23:30 Unknown WBC RBC Hgb Hct MCHC RDW Plt Count Lymph % (Auto) Lymph # Seg Neutrophils % Seg Neuts % (Manual) Lymphocytes % (Manual) Seg Neutrophils # Seg Neutrophils # Man Nucleated RBC % Lymphocytes # (Manual) PT INR Heparin Anti-Xa Level POC ABG pO2 ABG pH ABG Hemoglobin ABG Oxyhemoglobin ABG pO2 ABG HCO3 ABG O2 Saturation ABG Base Excess Sodium Potassium Chloride Carbon Dioxide BUN Creatinine Glucose POC Glucose Lactic Acid 2.10 H* 2.50 H* Calcium AST Phosphorus Total Protein Albumin C-Reactive Protein Urine WBC (Auto) 11.0 H 01/09/20 01/09/20 01/09/20 00:19 00:54 05:52 WBC 13.5 H RBC 3.02 L Hgb 9.0 L D Hct 27.4 L D MCHC RDW Plt Count Lymph % (Auto) 9.1 L Lymph # Seg Neutrophils % 87.6 H Seg Neuts % (Manual) Lymphocytes % (Manual) Seg Neutrophils # 11.8 H Seg Neutrophils # Man Nucleated RBC % Lymphocytes # (Manual) PT INR Heparin Anti-Xa Level POC ABG pO2 ABG pH ABG Hemoglobin ABG Oxyhemoglobin ABG pO2 ABG HCO3 ABG O2 Saturation ABG Base Excess Sodium Potassium Chloride Carbon Dioxide BUN Creatinine Glucose POC Glucose 118 H 116 H Lactic Acid Calcium AST Phosphorus Total Protein Albumin C-Reactive Protein Urine WBC (Auto) 01/09/20 01/09/20 01/09/20 05:52 05:52 13:03 WBC RBC Hgb Hct MCHC RDW Plt Count Lymph % (Auto) Lymph # Seg Neutrophils % Seg Neuts % (Manual) Lymphocytes % (Manual) Seg Neutrophils # Seg Neutrophils # Man Nucleated RBC % Lymphocytes # (Manual) PT 17.1 H INR 1.36 H Heparin Anti-Xa Level POC ABG pO2 ABG pH ABG Hemoglobin ABG Oxyhemoglobin ABG pO2 ABG HCO3 ABG O2 Saturation ABG Base Excess Sodium 162 H* Potassium 3.0 L D Chloride 128.3 H Carbon Dioxide BUN 23 H Creatinine Glucose POC Glucose 55 L Lactic Acid Calcium 7.6 L AST Phosphorus Total Protein Albumin C-Reactive Protein Urine WBC (Auto) 01/09/20 01/09/20 01/09/20 21:22 21:50 22:28 WBC RBC Hgb Hct MCHC RDW Plt Count Lymph % (Auto) Lymph # Seg Neutrophils % Seg Neuts % (Manual) Lymphocytes % (Manual) Seg Neutrophils # Seg Neutrophils # Man Nucleated RBC % Lymphocytes # (Manual) PT INR Heparin Anti-Xa Level POC ABG pO2 ABG pH ABG Hemoglobin ABG Oxyhemoglobin ABG pO2 ABG HCO3 ABG O2 Saturation ABG Base Excess Sodium 159 H Potassium 5.1 H D Chloride 128.5 H Carbon Dioxide 16 L BUN 23 H Creatinine Glucose 51 L POC Glucose 52 L 106 H Lactic Acid Calcium 8.2 L AST Phosphorus Total Protein Albumin C-Reactive Protein Urine WBC (Auto) 01/10/20 01/10/20 01/10/20 05:23 09:11 10:10 WBC 13.4 H RBC Hgb Hct MCHC RDW Plt Count Lymph % (Auto) 7.2 L Lymph # 1.0 L Seg Neutrophils % 90.0 H Seg Neuts % (Manual) Lymphocytes % (Manual) Seg Neutrophils # 12.0 H Seg Neutrophils # Man Nucleated RBC % Lymphocytes # (Manual) PT INR Heparin Anti-Xa Level POC ABG pO2 ABG pH ABG Hemoglobin ABG Oxyhemoglobin ABG pO2 ABG HCO3 ABG O2 Saturation ABG Base Excess Sodium 155 H Potassium Chloride 122.8 H Carbon Dioxide 21 L BUN 19 H Creatinine Glucose POC Glucose 120 H Lactic Acid Calcium AST Phosphorus Total Protein Albumin C-Reactive Protein Urine WBC (Auto) 01/10/20 01/10/20 01/10/20 11:47 11:57 17:09 WBC RBC Hgb Hct MCHC RDW Plt Count Lymph % (Auto) Lymph # Seg Neutrophils % Seg Neuts % (Manual) Lymphocytes % (Manual) Seg Neutrophils # Seg Neutrophils # Man Nucleated RBC % Lymphocytes # (Manual) PT INR Heparin Anti-Xa Level POC ABG pO2 ABG pH ABG Hemoglobin ABG Oxyhemoglobin ABG pO2 ABG HCO3 ABG O2 Saturation ABG Base Excess Sodium 153 H Potassium Chloride 118.3 H Carbon Dioxide 20 L BUN 19 H Creatinine Glucose 113 H POC Glucose 142 H 125 H Lactic Acid Calcium AST Phosphorus Total Protein Albumin C-Reactive Protein Urine WBC (Auto) 01/10/20 01/10/20 01/11/20 20:27 22:00 00:45 WBC RBC Hgb Hct MCHC RDW Plt Count Lymph % (Auto) Lymph # Seg Neutrophils % Seg Neuts % (Manual) Lymphocytes % (Manual) Seg Neutrophils # Seg Neutrophils # Man Nucleated RBC % Lymphocytes # (Manual) PT INR Heparin Anti-Xa Level POC ABG pO2 ABG pH ABG Hemoglobin ABG Oxyhemoglobin ABG pO2 ABG HCO3 ABG O2 Saturation ABG Base Excess Sodium 153 H 154 H Potassium 3.3 L 3.2 L Chloride 117.0 H 118.9 H Carbon Dioxide 20 L BUN Creatinine Glucose POC Glucose 136 H Lactic Acid Calcium 8.3 L 8.0 L AST Phosphorus Total Protein Albumin C-Reactive Protein Urine WBC (Auto) 01/11/20 01/11/20 01/11/20 07:06 08:03 11:54 WBC RBC Hgb Hct MCHC RDW Plt Count Lymph % (Auto) Lymph # Seg Neutrophils % Seg Neuts % (Manual) Lymphocytes % (Manual) Seg Neutrophils # Seg Neutrophils # Man Nucleated RBC % Lymphocytes # (Manual) PT INR Heparin Anti-Xa Level POC ABG pO2 ABG pH ABG Hemoglobin ABG Oxyhemoglobin ABG pO2 ABG HCO3 ABG O2 Saturation ABG Base Excess Sodium 151 H Potassium Chloride 118.7 H Carbon Dioxide 21 L BUN Creatinine Glucose 107 H POC Glucose 118 H 164 H Lactic Acid Calcium 8.3 L AST Phosphorus Total Protein Albumin C-Reactive Protein Urine WBC (Auto) 01/11/20 01/12/20 01/12/20 16:28 00:19 05:40 WBC RBC Hgb Hct MCHC RDW Plt Count Lymph % (Auto) Lymph # Seg Neutrophils % Seg Neuts % (Manual) Lymphocytes % (Manual) Seg Neutrophils # Seg Neutrophils # Man Nucleated RBC % Lymphocytes # (Manual) PT INR Heparin Anti-Xa Level POC ABG pO2 ABG pH ABG Hemoglobin ABG Oxyhemoglobin ABG pO2 ABG HCO3 ABG O2 Saturation ABG Base Excess Sodium 148 H Potassium Chloride 111.6 H Carbon Dioxide 19 L BUN Creatinine Glucose 128 H POC Glucose 132 H 179 H Lactic Acid Calcium 8.2 L AST Phosphorus Total Protein Albumin C-Reactive Protein Urine WBC (Auto) 01/12/20 01/12/20 01/12/20 06:17 11:37 17:21 WBC RBC Hgb Hct MCHC RDW Plt Count Lymph % (Auto) Lymph # Seg Neutrophils % Seg Neuts % (Manual) Lymphocytes % (Manual) Seg Neutrophils # Seg Neutrophils # Man Nucleated RBC % Lymphocytes # (Manual) PT INR Heparin Anti-Xa Level POC ABG pO2 ABG pH ABG Hemoglobin ABG Oxyhemoglobin ABG pO2 ABG HCO3 ABG O2 Saturation ABG Base Excess Sodium Potassium Chloride Carbon Dioxide BUN Creatinine Glucose POC Glucose 140 H 142 H 133 H Lactic Acid Calcium AST Phosphorus Total Protein Albumin C-Reactive Protein Urine WBC (Auto) 01/12/20 01/13/20 01/13/20 23:14 05:26 07:00 WBC RBC Hgb Hct MCHC RDW Plt Count Lymph % (Auto) Lymph # Seg Neutrophils % Seg Neuts % (Manual) Lymphocytes % (Manual) Seg Neutrophils # Seg Neutrophils # Man Nucleated RBC % Lymphocytes # (Manual) PT INR Heparin Anti-Xa Level POC ABG pO2 ABG pH ABG Hemoglobin ABG Oxyhemoglobin ABG pO2 ABG HCO3 ABG O2 Saturation ABG Base Excess Sodium Potassium Chloride 110.0 H Carbon Dioxide BUN Creatinine Glucose 139 H POC Glucose 135 H 162 H Lactic Acid Calcium 7.8 L AST Phosphorus Total Protein Albumin C-Reactive Protein Urine WBC (Auto) 01/13/20 01/13/20 01/13/20 12:14 17:52 21:40 WBC RBC Hgb Hct MCHC RDW Plt Count Lymph % (Auto) Lymph # Seg Neutrophils % Seg Neuts % (Manual) Lymphocytes % (Manual) Seg Neutrophils # Seg Neutrophils # Man Nucleated RBC % Lymphocytes # (Manual) PT INR Heparin Anti-Xa Level POC ABG pO2 ABG pH ABG Hemoglobin ABG Oxyhemoglobin ABG pO2 ABG HCO3 ABG O2 Saturation ABG Base Excess Sodium Potassium Chloride Carbon Dioxide BUN Creatinine Glucose POC Glucose 205 H 172 H 186 H Lactic Acid Calcium AST Phosphorus Total Protein Albumin C-Reactive Protein Urine WBC (Auto) 01/14/20 01/14/20 01/14/20 04:28 11:01 11:01 WBC 14.8 H RBC 3.20 L Hgb 9.5 L Hct 28.0 L MCHC RDW Plt Count Lymph % (Auto) Lymph # Seg Neutrophils % Seg Neuts % (Manual) Lymphocytes % (Manual) Seg Neutrophils # Seg Neutrophils # Man Nucleated RBC % Lymphocytes # (Manual) PT INR Heparin Anti-Xa Level POC ABG pO2 ABG pH ABG Hemoglobin ABG Oxyhemoglobin ABG pO2 ABG HCO3 ABG O2 Saturation ABG Base Excess Sodium Potassium 3.2 L Chloride Carbon Dioxide BUN Creatinine 0.4 L Glucose POC Glucose 115 H Lactic Acid Calcium 8.0 L AST Phosphorus Total Protein Albumin C-Reactive Protein Urine WBC (Auto) 01/14/20 01/14/20 01/14/20 11:01 16:33 22:32 WBC RBC Hgb Hct MCHC RDW Plt Count Lymph % (Auto) Lymph # Seg Neutrophils % Seg Neuts % (Manual) Lymphocytes % (Manual) Seg Neutrophils # Seg Neutrophils # Man Nucleated RBC % Lymphocytes # (Manual) PT 15.8 H INR 1.23 H Heparin Anti-Xa Level POC ABG pO2 ABG pH ABG Hemoglobin ABG Oxyhemoglobin ABG pO2 ABG HCO3 ABG O2 Saturation ABG Base Excess Sodium Potassium Chloride Carbon Dioxide BUN Creatinine Glucose POC Glucose 58 L 188 H Lactic Acid Calcium AST Phosphorus Total Protein Albumin C-Reactive Protein Urine WBC (Auto) 01/15/20 01/15/20 01/15/20 05:35 06:19 17:17 WBC RBC Hgb Hct MCHC RDW Plt Count Lymph % (Auto) Lymph # Seg Neutrophils % Seg Neuts % (Manual) Lymphocytes % (Manual) Seg Neutrophils # Seg Neutrophils # Man Nucleated RBC % Lymphocytes # (Manual) PT INR Heparin Anti-Xa Level POC ABG pO2 ABG pH ABG Hemoglobin ABG Oxyhemoglobin ABG pO2 ABG HCO3 ABG O2 Saturation ABG Base Excess Sodium Potassium Chloride Carbon Dioxide BUN Creatinine 0.5 L Glucose 104 H POC Glucose 106 H 183 H Lactic Acid Calcium 7.8 L AST Phosphorus Total Protein Albumin C-Reactive Protein Urine WBC (Auto) 01/15/20 01/16/20 01/16/20 22:29 05:35 05:59 WBC 14.7 H RBC 3.04 L Hgb 9.0 L Hct 27.0 L MCHC RDW Plt Count Lymph % (Auto) 9.1 L Lymph # Seg Neutrophils % 87.3 H Seg Neuts % (Manual) Lymphocytes % (Manual) Seg Neutrophils # 12.9 H Seg Neutrophils # Man Nucleated RBC % Lymphocytes # (Manual) PT INR Heparin Anti-Xa Level POC ABG pO2 ABG pH ABG Hemoglobin ABG Oxyhemoglobin ABG pO2 ABG HCO3 ABG O2 Saturation ABG Base Excess Sodium Potassium Chloride Carbon Dioxide BUN Creatinine Glucose POC Glucose 228 H 130 H Lactic Acid Calcium AST Phosphorus Total Protein Albumin C-Reactive Protein Urine WBC (Auto) 01/16/20 01/16/20 01/16/20 09:52 12:49 17:30 WBC RBC Hgb Hct MCHC RDW Plt Count Lymph % (Auto) Lymph # Seg Neutrophils % Seg Neuts % (Manual) Lymphocytes % (Manual) Seg Neutrophils # Seg Neutrophils # Man Nucleated RBC % Lymphocytes # (Manual) PT INR Heparin Anti-Xa Level POC ABG pO2 ABG pH ABG Hemoglobin ABG Oxyhemoglobin ABG pO2 ABG HCO3 ABG O2 Saturation ABG Base Excess Sodium Potassium Chloride Carbon Dioxide BUN Creatinine Glucose POC Glucose 122 H 142 H 192 H Lactic Acid Calcium AST Phosphorus Total Protein Albumin C-Reactive Protein Urine WBC (Auto) 01/16/20 01/17/20 01/17/20 23:01 08:36 08:36 WBC 12.7 H RBC 2.98 L Hgb 8.9 L Hct 26.4 L MCHC RDW Plt Count Lymph % (Auto) 8.8 L Lymph # 1.1 L Seg Neutrophils % 86.7 H Seg Neuts % (Manual) Lymphocytes % (Manual) Seg Neutrophils # 11.0 H Seg Neutrophils # Man Nucleated RBC % Lymphocytes # (Manual) PT INR Heparin Anti-Xa Level POC ABG pO2 ABG pH ABG Hemoglobin ABG Oxyhemoglobin ABG pO2 ABG HCO3 ABG O2 Saturation ABG Base Excess Sodium Potassium 3.3 L D Chloride Carbon Dioxide BUN Creatinine 0.4 L Glucose POC Glucose 141 H Lactic Acid Calcium 8.1 L AST Phosphorus Total Protein 4.6 L Albumin 1.6 L C-Reactive Protein Urine WBC (Auto) 01/17/20 01/17/20 01/18/20 11:43 23:56 06:27 WBC RBC Hgb Hct MCHC RDW Plt Count Lymph % (Auto) Lymph # Seg Neutrophils % Seg Neuts % (Manual) Lymphocytes % (Manual) Seg Neutrophils # Seg Neutrophils # Man Nucleated RBC % Lymphocytes # (Manual) PT INR Heparin Anti-Xa Level POC ABG pO2 ABG pH ABG Hemoglobin ABG Oxyhemoglobin ABG pO2 ABG HCO3 ABG O2 Saturation ABG Base Excess Sodium Potassium Chloride Carbon Dioxide BUN Creatinine Glucose POC Glucose 137 H 215 H 122 H Lactic Acid Calcium AST Phosphorus Total Protein Albumin C-Reactive Protein Urine WBC (Auto) 01/18/20 01/18/20 01/18/20 07:31 07:31 11:39 WBC 12.1 H RBC 3.23 L Hgb 9.7 L Hct 28.7 L MCHC RDW Plt Count Lymph % (Auto) 9.2 L Lymph # 1.1 L Seg Neutrophils % 85.0 H Seg Neuts % (Manual) Lymphocytes % (Manual) Seg Neutrophils # 10.3 H Seg Neutrophils # Man Nucleated RBC % Lymphocytes # (Manual) PT INR Heparin Anti-Xa Level POC ABG pO2 ABG pH ABG Hemoglobin ABG Oxyhemoglobin ABG pO2 ABG HCO3 ABG O2 Saturation ABG Base Excess Sodium Potassium Chloride Carbon Dioxide BUN Creatinine 0.4 L Glucose 108 H POC Glucose 172 H Lactic Acid Calcium AST Phosphorus Total Protein 5.3 L Albumin 2.1 L C-Reactive Protein Urine WBC (Auto) 01/18/20 01/19/20 01/19/20 18:22 00:15 11:30 WBC RBC Hgb Hct MCHC RDW Plt Count Lymph % (Auto) Lymph # Seg Neutrophils % Seg Neuts % (Manual) Lymphocytes % (Manual) Seg Neutrophils # Seg Neutrophils # Man Nucleated RBC % Lymphocytes # (Manual) PT INR Heparin Anti-Xa Level POC ABG pO2 ABG pH ABG Hemoglobin ABG Oxyhemoglobin ABG pO2 ABG HCO3 ABG O2 Saturation ABG Base Excess Sodium Potassium Chloride Carbon Dioxide BUN Creatinine Glucose POC Glucose 119 H 135 H 163 H Lactic Acid Calcium AST Phosphorus Total Protein Albumin C-Reactive Protein Urine WBC (Auto) 01/19/20 01/19/20 01/20/20 17:44 22:59 03:44 WBC 11.1 H RBC 2.77 L Hgb 8.4 L Hct 25.0 L MCHC RDW Plt Count Lymph % (Auto) Lymph # Seg Neutrophils % 74.6 H Seg Neuts % (Manual) Lymphocytes % (Manual) Seg Neutrophils # 8.3 H Seg Neutrophils # Man Nucleated RBC % Lymphocytes # (Manual) PT INR Heparin Anti-Xa Level POC ABG pO2 ABG pH ABG Hemoglobin ABG Oxyhemoglobin ABG pO2 ABG HCO3 ABG O2 Saturation ABG Base Excess Sodium Potassium Chloride Carbon Dioxide BUN Creatinine Glucose POC Glucose 161 H 182 H Lactic Acid Calcium AST Phosphorus Total Protein Albumin C-Reactive Protein Urine WBC (Auto) 01/20/20 01/21/20 01/21/20 03:44 00:07 05:51 WBC RBC 2.84 L Hgb 8.6 L Hct 25.5 L MCHC RDW Plt Count 463 H Lymph % (Auto) Lymph # Seg Neutrophils % 76.9 H Seg Neuts % (Manual) Lymphocytes % (Manual) Seg Neutrophils # 7.8 H Seg Neutrophils # Man Nucleated RBC % Lymphocytes # (Manual) PT INR Heparin Anti-Xa Level POC ABG pO2 ABG pH ABG Hemoglobin ABG Oxyhemoglobin ABG pO2 ABG HCO3 ABG O2 Saturation ABG Base Excess Sodium Potassium Chloride Carbon Dioxide BUN Creatinine 0.4 L Glucose POC Glucose 68 L Lactic Acid Calcium 7.9 L AST Phosphorus Total Protein 4.7 L Albumin 1.9 L C-Reactive Protein Urine WBC (Auto) 01/21/20 01/21/20 01/21/20 05:51 05:58 11:25 WBC RBC Hgb Hct MCHC RDW Plt Count Lymph % (Auto) Lymph # Seg Neutrophils % Seg Neuts % (Manual) Lymphocytes % (Manual) Seg Neutrophils # Seg Neutrophils # Man Nucleated RBC % Lymphocytes # (Manual) PT INR Heparin Anti-Xa Level POC ABG pO2 ABG pH ABG Hemoglobin ABG Oxyhemoglobin ABG pO2 ABG HCO3 ABG O2 Saturation ABG Base Excess Sodium Potassium Chloride Carbon Dioxide 20 L BUN Creatinine 0.5 L Glucose 130 H POC Glucose 185 H 163 H Lactic Acid Calcium 7.6 L AST Phosphorus Total Protein 5.0 L Albumin 1.9 L C-Reactive Protein Urine WBC (Auto) 01/21/20 01/21/20 01/22/20 16:22 21:17 01:28 WBC RBC 2.60 L Hgb 8.0 L Hct 23.3 L MCHC RDW Plt Count Lymph % (Auto) Lymph # Seg Neutrophils % 74.8 H Seg Neuts % (Manual) Lymphocytes % (Manual) Seg Neutrophils # Seg Neutrophils # Man Nucleated RBC % Lymphocytes # (Manual) PT INR Heparin Anti-Xa Level POC ABG pO2 ABG pH ABG Hemoglobin ABG Oxyhemoglobin ABG pO2 ABG HCO3 ABG O2 Saturation ABG Base Excess Sodium Potassium Chloride Carbon Dioxide BUN Creatinine Glucose POC Glucose 177 H 67 L Lactic Acid Calcium AST Phosphorus Total Protein Albumin C-Reactive Protein Urine WBC (Auto) 01/22/20 01/22/20 01/22/20 01:28 01:28 12:06 WBC RBC Hgb Hct MCHC RDW Plt Count Lymph % (Auto) Lymph # Seg Neutrophils % Seg Neuts % (Manual) Lymphocytes % (Manual) Seg Neutrophils # Seg Neutrophils # Man Nucleated RBC % Lymphocytes # (Manual) PT INR Heparin Anti-Xa Level POC ABG pO2 ABG pH ABG Hemoglobin ABG Oxyhemoglobin ABG pO2 ABG HCO3 ABG O2 Saturation ABG Base Excess Sodium Potassium Chloride 107.6 H Carbon Dioxide BUN Creatinine 0.4 L Glucose 152 H POC Glucose 203 H 140 H Lactic Acid Calcium 7.5 L AST Phosphorus Total Protein 4.0 L Albumin 2.0 L C-Reactive Protein Urine WBC (Auto) 01/22/20 01/22/20 01/23/20 16:24 22:55 06:10 WBC RBC 2.68 L Hgb 8.6 L Hct 24.1 L MCHC 36 H RDW Plt Count Lymph % (Auto) Lymph # Seg Neutrophils % Seg Neuts % (Manual) 71.0 H Lymphocytes % (Manual) Seg Neutrophils # Seg Neutrophils # Man Nucleated RBC % Lymphocytes # (Manual) PT INR Heparin Anti-Xa Level POC ABG pO2 ABG pH ABG Hemoglobin ABG Oxyhemoglobin ABG pO2 ABG HCO3 ABG O2 Saturation ABG Base Excess Sodium Potassium Chloride Carbon Dioxide BUN Creatinine Glucose POC Glucose 205 H 196 H Lactic Acid Calcium AST Phosphorus Total Protein Albumin C-Reactive Protein Urine WBC (Auto) 01/23/20 01/23/20 01/23/20 06:10 07:35 11:59 WBC RBC Hgb Hct MCHC RDW Plt Count Lymph % (Auto) Lymph # Seg Neutrophils % Seg Neuts % (Manual) Lymphocytes % (Manual) Seg Neutrophils # Seg Neutrophils # Man Nucleated RBC % Lymphocytes # (Manual) PT INR Heparin Anti-Xa Level POC ABG pO2 ABG pH ABG Hemoglobin ABG Oxyhemoglobin ABG pO2 ABG HCO3 ABG O2 Saturation ABG Base Excess Sodium Potassium Chloride 108.8 H Carbon Dioxide BUN Creatinine 0.4 L Glucose 105 H POC Glucose 111 H 123 H Lactic Acid Calcium 8.0 L AST Phosphorus Total Protein 4.9 L D Albumin 2.0 L C-Reactive Protein Urine WBC (Auto) 01/23/20 01/24/20 01/24/20 22:45 11:24 16:41 WBC RBC Hgb Hct MCHC RDW Plt Count Lymph % (Auto) Lymph # Seg Neutrophils % Seg Neuts % (Manual) Lymphocytes % (Manual) Seg Neutrophils # Seg Neutrophils # Man Nucleated RBC % Lymphocytes # (Manual) PT INR Heparin Anti-Xa Level POC ABG pO2 ABG pH ABG Hemoglobin ABG Oxyhemoglobin ABG pO2 ABG HCO3 ABG O2 Saturation ABG Base Excess Sodium Potassium Chloride Carbon Dioxide BUN Creatinine Glucose POC Glucose 180 H 182 H 177 H Lactic Acid Calcium AST Phosphorus Total Protein Albumin C-Reactive Protein Urine WBC (Auto) 01/24/20 01/25/20 01/25/20 23:11 07:12 11:35 WBC RBC Hgb Hct MCHC RDW Plt Count Lymph % (Auto) Lymph # Seg Neutrophils % Seg Neuts % (Manual) Lymphocytes % (Manual) Seg Neutrophils # Seg Neutrophils # Man Nucleated RBC % Lymphocytes # (Manual) PT INR Heparin Anti-Xa Level POC ABG pO2 ABG pH ABG Hemoglobin ABG Oxyhemoglobin ABG pO2 ABG HCO3 ABG O2 Saturation ABG Base Excess Sodium Potassium Chloride Carbon Dioxide BUN Creatinine Glucose POC Glucose 142 H 135 H 142 H Lactic Acid Calcium AST Phosphorus Total Protein Albumin C-Reactive Protein Urine WBC (Auto) 01/25/20 01/26/20 01/26/20 16:33 00:04 11:35 WBC RBC Hgb Hct MCHC RDW Plt Count Lymph % (Auto) Lymph # Seg Neutrophils % Seg Neuts % (Manual) Lymphocytes % (Manual) Seg Neutrophils # Seg Neutrophils # Man Nucleated RBC % Lymphocytes # (Manual) PT INR Heparin Anti-Xa Level POC ABG pO2 ABG pH ABG Hemoglobin ABG Oxyhemoglobin ABG pO2 ABG HCO3 ABG O2 Saturation ABG Base Excess Sodium Potassium Chloride Carbon Dioxide BUN Creatinine Glucose POC Glucose 247 H 233 H 200 H Lactic Acid Calcium AST Phosphorus Total Protein Albumin C-Reactive Protein Urine WBC (Auto) 01/26/20 01/26/20 01/26/20 16:30 16:30 17:19 WBC RBC Hgb 7.4 L Hct 22.0 L MCHC RDW Plt Count Lymph % (Auto) Lymph # Seg Neutrophils % Seg Neuts % (Manual) Lymphocytes % (Manual) Seg Neutrophils # Seg Neutrophils # Man Nucleated RBC % Lymphocytes # (Manual) PT 18.4 H INR 1.50 H Heparin Anti-Xa Level POC ABG pO2 ABG pH ABG Hemoglobin ABG Oxyhemoglobin ABG pO2 ABG HCO3 ABG O2 Saturation ABG Base Excess Sodium Potassium Chloride Carbon Dioxide BUN Creatinine Glucose POC Glucose 67 L Lactic Acid Calcium AST Phosphorus Total Protein Albumin C-Reactive Protein Urine WBC (Auto) 01/26/20 01/26/20 01/27/20 20:24 21:32 00:16 WBC RBC Hgb Hct MCHC RDW Plt Count Lymph % (Auto) Lymph # Seg Neutrophils % Seg Neuts % (Manual) Lymphocytes % (Manual) Seg Neutrophils # Seg Neutrophils # Man Nucleated RBC % Lymphocytes # (Manual) PT INR Heparin Anti-Xa Level POC ABG pO2 51.8 L ABG pH ABG Hemoglobin 8.5 L ABG Oxyhemoglobin 84.7 L ABG pO2 ABG HCO3 ABG O2 Saturation ABG Base Excess Sodium Potassium Chloride Carbon Dioxide BUN Creatinine Glucose POC Glucose 162 H 141 H Lactic Acid Calcium AST Phosphorus Total Protein Albumin C-Reactive Protein Urine WBC (Auto) 01/27/20 01/27/20 01/27/20 01:42 02:18 05:57 WBC RBC Hgb Hct MCHC RDW Plt Count Lymph % (Auto) Lymph # Seg Neutrophils % Seg Neuts % (Manual) Lymphocytes % (Manual) Seg Neutrophils # Seg Neutrophils # Man Nucleated RBC % Lymphocytes # (Manual) PT INR Heparin Anti-Xa Level 2.00 H POC ABG pO2 ABG pH ABG Hemoglobin ABG Oxyhemoglobin ABG pO2 ABG HCO3 ABG O2 Saturation ABG Base Excess Sodium Potassium Chloride Carbon Dioxide BUN Creatinine Glucose POC Glucose 183 H 124 H Lactic Acid Calcium AST Phosphorus Total Protein Albumin C-Reactive Protein Urine WBC (Auto) 01/27/20 01/27/20 01/27/20 06:30 06:30 12:23 WBC RBC 2.75 L Hgb 8.4 L Hct 24.9 L MCHC RDW 16.0 H Plt Count 474 H Lymph % (Auto) 12.7 L Lymph # Seg Neutrophils % 83.2 H Seg Neuts % (Manual) Lymphocytes % (Manual) Seg Neutrophils # 8.4 H Seg Neutrophils # Man Nucleated RBC % Lymphocytes # (Manual) PT INR Heparin Anti-Xa Level POC ABG pO2 ABG pH ABG Hemoglobin ABG Oxyhemoglobin ABG pO2 ABG HCO3 ABG O2 Saturation ABG Base Excess Sodium Potassium 3.5 L Chloride 110.2 H Carbon Dioxide BUN Creatinine 0.4 L Glucose 101 H POC Glucose 126 H Lactic Acid Calcium 7.8 L AST Phosphorus Total Protein Albumin C-Reactive Protein Urine WBC (Auto) 01/27/20 01/27/20 01/28/20 17:31 23:40 00:00 WBC RBC Hgb Hct MCHC RDW Plt Count Lymph % (Auto) Lymph # Seg Neutrophils % Seg Neuts % (Manual) Lymphocytes % (Manual) Seg Neutrophils # Seg Neutrophils # Man Nucleated RBC % Lymphocytes # (Manual) PT INR Heparin Anti-Xa Level 2.00 H POC ABG pO2 ABG pH ABG Hemoglobin ABG Oxyhemoglobin ABG pO2 ABG HCO3 ABG O2 Saturation ABG Base Excess Sodium Potassium Chloride Carbon Dioxide BUN Creatinine Glucose POC Glucose 133 H 136 H Lactic Acid Calcium AST Phosphorus Total Protein Albumin C-Reactive Protein Urine WBC (Auto) 01/28/20 01/28/20 01/28/20 04:26 04:26 05:35 WBC RBC Hgb 9.6 L Hct 28.5 L MCHC RDW Plt Count 508 H Lymph % (Auto) Lymph # Seg Neutrophils % Seg Neuts % (Manual) Lymphocytes % (Manual) Seg Neutrophils # Seg Neutrophils # Man Nucleated RBC % Lymphocytes # (Manual) PT INR Heparin Anti-Xa Level POC ABG pO2 ABG pH ABG Hemoglobin ABG Oxyhemoglobin ABG pO2 ABG HCO3 ABG O2 Saturation ABG Base Excess Sodium Potassium Chloride Carbon Dioxide 19 L BUN 20 H Creatinine 0.5 L Glucose 103 H POC Glucose 135 H Lactic Acid Calcium 7.9 L AST Phosphorus Total Protein Albumin C-Reactive Protein Urine WBC (Auto) 01/28/20 01/28/20 01/28/20 08:50 11:10 11:51 WBC RBC Hgb Hct MCHC RDW Plt Count Lymph % (Auto) Lymph # Seg Neutrophils % Seg Neuts % (Manual) Lymphocytes % (Manual) Seg Neutrophils # Seg Neutrophils # Man Nucleated RBC % Lymphocytes # (Manual) PT INR Heparin Anti-Xa Level 0.74 H POC ABG pO2 67.2 L ABG pH ABG Hemoglobin 9.3 L ABG Oxyhemoglobin ABG pO2 ABG HCO3 ABG O2 Saturation ABG Base Excess Sodium Potassium Chloride Carbon Dioxide BUN Creatinine Glucose POC Glucose 160 H Lactic Acid Calcium AST Phosphorus Total Protein Albumin C-Reactive Protein Urine WBC (Auto) 01/28/20 01/28/20 01/29/20 17:19 23:53 03:52 WBC RBC Hgb Hct MCHC RDW Plt Count Lymph % (Auto) Lymph # Seg Neutrophils % Seg Neuts % (Manual) Lymphocytes % (Manual) Seg Neutrophils # Seg Neutrophils # Man Nucleated RBC % Lymphocytes # (Manual) PT INR Heparin Anti-Xa Level POC ABG pO2 ABG pH 7.510 H ABG Hemoglobin 7.3 L ABG Oxyhemoglobin ABG pO2 357.0 H ABG HCO3 19.6 L ABG O2 Saturation 99.6 H ABG Base Excess -2.9 L Sodium Potassium Chloride Carbon Dioxide BUN Creatinine Glucose POC Glucose 177 H 142 H Lactic Acid Calcium AST Phosphorus Total Protein Albumin C-Reactive Protein Urine WBC (Auto) 01/29/20 01/29/20 01/29/20 04:58 04:58 06:01 WBC 13.1 H RBC 2.75 L Hgb 8.6 L Hct 25.6 L MCHC RDW 17.7 H Plt Count Lymph % (Auto) Lymph # Seg Neutrophils % Seg Neuts % (Manual) 91.0 H Lymphocytes % (Manual) 6.0 L Seg Neutrophils # Seg Neutrophils # Man 11.9 H Nucleated RBC % 1.0 H Lymphocytes # (Manual) 0.8 L PT INR Heparin Anti-Xa Level POC ABG pO2 ABG pH ABG Hemoglobin ABG Oxyhemoglobin ABG pO2 ABG HCO3 ABG O2 Saturation ABG Base Excess Sodium 148 H Potassium 3.5 L D Chloride 113.2 H Carbon Dioxide 21 L BUN 20 H Creatinine Glucose 137 H POC Glucose 167 H Lactic Acid Calcium 8.1 L AST Phosphorus Total Protein Albumin C-Reactive Protein Urine WBC (Auto) 01/29/20 01/29/20 01/29/20 11:45 17:52 23:49 WBC RBC Hgb Hct MCHC RDW Plt Count Lymph % (Auto) Lymph # Seg Neutrophils % Seg Neuts % (Manual) Lymphocytes % (Manual) Seg Neutrophils # Seg Neutrophils # Man Nucleated RBC % Lymphocytes # (Manual) PT INR Heparin Anti-Xa Level POC ABG pO2 ABG pH ABG Hemoglobin ABG Oxyhemoglobin ABG pO2 ABG HCO3 ABG O2 Saturation ABG Base Excess Sodium Potassium Chloride Carbon Dioxide BUN Creatinine Glucose POC Glucose 185 H 226 H 141 H Lactic Acid Calcium AST Phosphorus Total Protein Albumin C-Reactive Protein Urine WBC (Auto) 01/29/20 01/30/20 01/30/20 Unknown 03:24 04:00 WBC RBC Hgb 7.8 L Hct 23.5 L MCHC RDW Plt Count Lymph % (Auto) Lymph # Seg Neutrophils % Seg Neuts % (Manual) Lymphocytes % (Manual) Seg Neutrophils # Seg Neutrophils # Man Nucleated RBC % Lymphocytes # (Manual) PT INR Heparin Anti-Xa Level POC ABG pO2 ABG pH 7.485 H ABG Hemoglobin 6.7 L ABG Oxyhemoglobin ABG pO2 102.0 H ABG HCO3 ABG O2 Saturation ABG Base Excess Sodium Potassium Chloride Carbon Dioxide BUN Creatinine Glucose POC Glucose Lactic Acid Calcium AST Phosphorus Total Protein Albumin C-Reactive Protein 14.80 H Urine WBC (Auto) 01/30/20 01/30/20 01/30/20 05:50 11:15 17:07 WBC RBC Hgb Hct MCHC RDW Plt Count Lymph % (Auto) Lymph # Seg Neutrophils % Seg Neuts % (Manual) Lymphocytes % (Manual) Seg Neutrophils # Seg Neutrophils # Man Nucleated RBC % Lymphocytes # (Manual) PT INR Heparin Anti-Xa Level POC ABG pO2 ABG pH ABG Hemoglobin ABG Oxyhemoglobin ABG pO2 ABG HCO3 ABG O2 Saturation ABG Base Excess Sodium Potassium Chloride Carbon Dioxide BUN Creatinine Glucose POC Glucose 122 H 207 H 124 H Lactic Acid Calcium AST Phosphorus Total Protein Albumin C-Reactive Protein Urine WBC (Auto) 01/30/20 01/31/20 01/31/20 17:08 00:10 04:52 WBC RBC Hgb Hct MCHC RDW Plt Count Lymph % (Auto) Lymph # Seg Neutrophils % Seg Neuts % (Manual) Lymphocytes % (Manual) Seg Neutrophils # Seg Neutrophils # Man Nucleated RBC % Lymphocytes # (Manual) PT INR Heparin Anti-Xa Level POC ABG pO2 ABG pH 7.504 H 7.486 H ABG Hemoglobin 7.4 L 6.2 L ABG Oxyhemoglobin ABG pO2 169.2 H 121.7 H ABG HCO3 27.1 H ABG O2 Saturation 99.1 H ABG Base Excess 3.4 H Sodium Potassium Chloride Carbon Dioxide BUN Creatinine Glucose POC Glucose 191 H Lactic Acid Calcium AST Phosphorus Total Protein Albumin C-Reactive Protein Urine WBC (Auto) 01/31/20 01/31/20 01/31/20 05:37 11:59 12:40 WBC RBC 2.41 L Hgb 7.5 L Hct 22.3 L MCHC RDW 22.2 H Plt Count Lymph % (Auto) Lymph # Seg Neutrophils % Seg Neuts % (Manual) 94.0 H Lymphocytes % (Manual) 2.0 L Seg Neutrophils # Seg Neutrophils # Man 9.4 H Nucleated RBC % Lymphocytes # (Manual) 0.2 L PT INR Heparin Anti-Xa Level POC ABG pO2 ABG pH ABG Hemoglobin ABG Oxyhemoglobin ABG pO2 ABG HCO3 ABG O2 Saturation ABG Base Excess Sodium Potassium Chloride Carbon Dioxide BUN Creatinine Glucose POC Glucose 175 H 220 H Lactic Acid Calcium AST Phosphorus Total Protein Albumin C-Reactive Protein Urine WBC (Auto) 01/31/20 01/31/20 01/31/20 12:40 14:40 18:18 WBC RBC Hgb Hct MCHC RDW Plt Count Lymph % (Auto) Lymph # Seg Neutrophils % Seg Neuts % (Manual) Lymphocytes % (Manual) Seg Neutrophils # Seg Neutrophils # Man Nucleated RBC % Lymphocytes # (Manual) PT INR Heparin Anti-Xa Level POC ABG pO2 124.7 H ABG pH 7.542 H ABG Hemoglobin 7.8 L ABG Oxyhemoglobin ABG pO2 ABG HCO3 ABG O2 Saturation ABG Base Excess Sodium 151 H Potassium 2.1 L* D Chloride 108.9 H Carbon Dioxide BUN 22 H Creatinine Glucose 194 H POC Glucose 181 H Lactic Acid Calcium 8.1 L AST Phosphorus Total Protein 4.8 L Albumin 2.3 L C-Reactive Protein Urine WBC (Auto) 02/01/20 02/01/20 02/01/20 00:11 03:14 04:32 WBC 11.9 H RBC 2.47 L Hgb 7.6 L Hct 22.8 L MCHC RDW 22.7 H Plt Count Lymph % (Auto) Lymph # Seg Neutrophils % Seg Neuts % (Manual) 90.0 H Lymphocytes % (Manual) 5.0 L Seg Neutrophils # Seg Neutrophils # Man 10.7 H Nucleated RBC % Lymphocytes # (Manual) 0.6 L PT INR Heparin Anti-Xa Level POC ABG pO2 ABG pH 7.564 H ABG Hemoglobin 7.6 L ABG Oxyhemoglobin ABG pO2 124.1 H ABG HCO3 29.6 H ABG O2 Saturation ABG Base Excess 7.0 H Sodium Potassium Chloride Carbon Dioxide BUN Creatinine Glucose POC Glucose 190 H Lactic Acid Calcium AST Phosphorus Total Protein Albumin C-Reactive Protein Urine WBC (Auto) 02/01/20 02/01/20 02/01/20 04:32 05:28 11:56 WBC RBC Hgb Hct MCHC RDW Plt Count Lymph % (Auto) Lymph # Seg Neutrophils % Seg Neuts % (Manual) Lymphocytes % (Manual) Seg Neutrophils # Seg Neutrophils # Man Nucleated RBC % Lymphocytes # (Manual) PT INR Heparin Anti-Xa Level POC ABG pO2 ABG pH ABG Hemoglobin ABG Oxyhemoglobin ABG pO2 ABG HCO3 ABG O2 Saturation ABG Base Excess Sodium 149 H Potassium 2.6 L* D Chloride Carbon Dioxide 33 H BUN 23 H Creatinine 0.5 L Glucose 174 H POC Glucose 187 H 195 H Lactic Acid Calcium 8.0 L AST Phosphorus 1.60 L Total Protein Albumin C-Reactive Protein Urine WBC (Auto) Chest x-ray: image reviewed (no acute process) Allied health notes reviewed: nursing
[2020-02-01] MEDS: traZODone 50 MG TAB PO SCH (21:57)
[2020-02-01] MEDS: DONEPEZIL 10 MG TAB PO SCH (21:58)
[2020-02-01] MEDS: MIRTAZAPINE 15 MG TAB PO SCH (22:00)
[2020-02-02] MEDS: INSULIN REGULAR, HUMAN 100 UNIT/ML 3ML VIAL SUB-Q SCH ×4 (00:27→18:38)
--- NOTE | 2020-02-02 02:46 | XRay Report ---
CHEST 1 VIEW 02/02/2020 2:17 AM INDICATION / CLINICAL INFORMATION: follow up respiratory failure. COMPARISON: 02/01/2020 FINDINGS: SUPPORT DEVICES: Stable, satisfactory device positioning. HEART / MEDIASTINUM: Stable. LUNGS / PLEURA: Essentially resolved right lower lung opacity. No pneumothorax. ADDITIONAL FINDINGS: No significant additional findings. IMPRESSION: 1. Essentially resolved right lower lung opacity. Signer Name: Sundar Spring MD Signed: 02/02/2020 2:41 AM Workstation Name: [id number]
[2020-02-02] MEDS: HYDROCORTISONE SOD SUCC 100 MG/2 ML VIAL IV SCH ×3 (05:49→21:28)
[2020-02-02] MEDS: FUROSEMIDE 40 MG/4 ML INJ IV SCH (05:49)
[2020-02-02] MEDS: PIPERACIL/TAZOBACTA 4.5/NS 100 4.5 GM/100 ML VIAL IV SCH ×3 (05:50→21:28)
[2020-02-02 05:56] LABS: Hematocrit 22.9 % (30.3-42.9); Hemoglobin 7.6 gm/dl (10.1-14.3); Mean Corpuscular HGB Conc 33 % (30-34); Mean Corpuscular Volume 94 fl (79-97); Platelet Count 318 K/mm3 (140-440); Red Blood Count 2.43 M/mm3 (3.65-5.03)
[2020-02-02 06:02] LABS: INR 1.11 (0.87-1.13)
[2020-02-02 06:06] LABS: Blood Urea Nitrogen 26 mg/dL (7-17); Calcium 7.9 mg/dL (8.4-10.2); Hemolysis Index 3
[2020-02-02 06:07] LABS: BUN/Creatinine Ratio 43
[2020-02-02 06:14] LABS: Red Cell Distribution Width 23.6 % (13.2-15.2)
--- NOTE | 2020-02-02 08:42 | Progress Note ---
Assessment and Plan Assessment and plan: --Acute respiratory failure, not POA likely from Hydropneumothorax, and recurrent left pleural effusion s/p chest tube - improved o2 saturation, chest tube removed on 01/22 Remains intubated on vent, wean as tolerated and extubate --Shock/ septic shock Remains on Levophed, IV fluids --Persistent severe hypokalemia; potassium today is 2.6 Replenished with 40 mEq KCl IV x1 40 mEq of oral KCl every 3 hours x2 via [place], Check magnesium, hold Lasix --Hypophosphatemia; Replenished with potassium phosphate IV Closely monitor electrolytes -- s/p PEA cardiac arrest CPR per ACLS protocol with ROSC Check code record Intubated on vent, supportive care Poor prognosis -- Hydropneumothorax, not POA Patient developed hydropneumothorax on 01/15. Surgery evaluated s/p chest tube placed on 01/15. Improved, s/p chest tube removed 01/22 -- large Left pleural effusion 01/25 Continue supportive care, pulmonary following -- Hypernatremia, Resolved -- Sepsis, likely UTI and infected Sacral decubitus ulcer On zosyn now, cont to Monitor vital signs closely -- UTI (urinary tract infection) Completed antibiotics --h/o Bilateral pulmonary embolism Had pulmonary embolism 7 months ago. CTA chest and LE doppler showed no acute PE or DVT eliquis now stopped --Sacral decubitus ulcer, infected/POA s/p wound debridement on 01/15. Wound vac in place ID recommend cont zosyn 4.5 g IV q8h total 6 weeks stop date 02/27/2020 -- Uncontrolled diabetes mellitus DM management with SSI, TF -- Dementia: Continue donepezil --Severe protein-calorie malnutrition She is not eating well and is getting feeds through the NG tube. Discussed with - this problem has been chronic agreed for PEG PEG placed 01/13. Now on tube feeds --DVT prophylaxis heparin drip for PE treatment Will contact patient's today unable to reach him left voicemail to call back The high probability of a clinically significant, sudden or life threatening deterioration of the [Respiratory, LABORATORY CHEMIST, CVs] system(s) required my full and direct attention, intervention and personal management. The aggregate critical care time was [33] minutes. This time is in addition to time spent performing reported procedures but includes the following: [x] Data Review and interpretation [x] Patient assessment and monitoring of vital signs [x] Documentation [x] Medication orders and management Monitor closely and adjust management as needed Plan of care reviewed with the patient's nurse History Interval history: I have seen and examined the patient at the bedside in ICU this morning Patient's chart and medications reviewed Patient remains intubated on ventilatory support Unresponsive noncommunicative Patient has persistent hypokalemia Remains on Levophed for hypotension Hospitalist Physical - Constitutional Vitals: Temp Pulse Resp BP Pulse Ox 98.8 F 86 8 L 124/65 100 02/02/20 02:47 02/02/20 07:20 02/02/20 07:20 02/02/20 07:20 02/02/20 07:20 General appearance: Present: mild distress, well-nourished, other (Intubated on vent) - EENT Eyes: Present: PERRL, EOM intact - Neck Neck: Present: supple, other (ET tube in place) - Respiratory Respiratory effort: normal Respiratory: bilateral: diminished, rhonchi, negative: rales, wheezing - Cardiovascular Rhythm: regular Heart Sounds: Present: S1 & S2 - Extremities Extremities: no ischemia, No edema - Abdominal General gastrointestinal: soft, non-tender, non-distended, normal bowel sounds - Integumentary Integumentary: Present: clear, warm - Psychiatric Psychiatric: other (Intubated on vent) - Neurologic Neurologic: other (Intubated on vent) Results - Labs CBC & Chem 7: 02/02/20 05:25 02/02/20 05:25 Labs: Laboratory Last Values WBC 15.5 K/mm3 (4.5-11.0) H 02/02/20 05:25 RBC 2.43 M/mm3 (3.65-5.03) L 02/02/20 05:25 Hgb 7.6 gm/dl (10.1-14.3) L 02/02/20 05:25 Hct 22.9 % (30.3-42.9) L 02/02/20 05:25 MCV 94 fl (79-97) 02/02/20 05:25 MCH 31 pg (28-32) 02/02/20 05:25 MCHC 33 % (30-34) 02/02/20 05:25 RDW 23.6 % (13.2-15.2) H 02/02/20 05:25 Plt Count 318 K/mm3 (140-440) 02/02/20 05:25 Lymph % (Auto) 12.7 % (13.4-35.0) L 01/27/20 06:30 [place] % (Auto) 3.9 % (0.0-7.3) 01/27/20 06:30 Eos % (Auto) 0.1 % (0.0-4.3) 01/27/20 06:30 Baso % (Auto) 0.1 % (0.0-1.8) 01/27/20 06:30 Lymph # 1.3 K/mm3 (1.2-5.4) 01/27/20 06:30 [place] # 0.4 K/mm3 (0.0-0.8) 01/27/20 06:30 Eos # 0.0 K/mm3 (0.0-0.4) 01/27/20 06:30 Baso # 0.0 K/mm3 (0.0-0.1) 01/27/20 06:30 Add Manual Diff Complete 02/01/20 04:32 Total Counted 100 02/01/20 04:32 Seg Neutrophils % Net[employer] Engineer 02/02/20 05:25 Seg Neutrophils # 8.4 K/mm3 (1.8-7.7) H 01/27/20 06:30 Seg Neuts % (Manual) 90.0 % (40.0-70.0) H 02/01/20 04:32 Band Neutrophils % 0 % 02/01/20 04:32 Lymphocytes % (Manual) 5.0 % (13.4-35.0) L 02/01/20 04:32 Reactive Lymphs % (Man) 0 % 02/01/20 04:32 Monocytes % (Manual) 5.0 % (0.0-7.3) 02/01/20 04:32 Eosinophils % (Manual) 0 % (0.0-4.3) 02/01/20 04:32 Basophils % (Manual) 0 % (0.0-1.8) 02/01/20 04:32 Metamyelocytes % 0 % 02/01/20 04:32 Myelocytes % 0 % 02/01/20 04:32 Promyelocytes % 0 % 02/01/20 04:32 Blast Cells % 0 % 02/01/20 04:32 Nucleated RBC % Not Reportable 02/01/20 04:32 Seg Neutrophils # Man 10.7 K/mm3 (1.8-7.7) H 02/01/20 04:32 Band Neutrophils # 0.0 K/mm3 02/01/20 04:32 Lymphocytes # (Manual) 0.6 K/mm3 (1.2-5.4) L 02/01/20 04:32 Abs React Lymphs (Man) 0.0 K/mm3 02/01/20 04:32 Monocytes # (Manual) 0.6 K/mm3 (0.0-0.8) 02/01/20 04:32 Eosinophils # (Manual) 0.0 K/mm3 (0.0-0.4) 02/01/20 04:32 Basophils # (Manual) 0.0 K/mm3 (0.0-0.1) 02/01/20 04:32 Metamyelocytes # 0.0 K/mm3 02/01/20 04:32 Myelocytes # 0.0 K/mm3 02/01/20 04:32 Promyelocytes # 0.0 K/mm3 02/01/20 04:32 Blast Cells # 0.0 K/mm3 02/01/20 04:32 WBC Morphology Not Reportable 02/01/20 04:32 Hypersegmented Neuts Not Reportable 02/01/20 04:32 Hyposegmented Neuts Not Reportable 02/01/20 04:32 Hypogranular Neuts Not Reportable 02/01/20 04:32 Smudge Cells Not Reportable 02/01/20 04:32 Toxic Granulation Not Reportable 02/01/20 04:32 Toxic Vacuolation Not Reportable 02/01/20 04:32 Dohle Bodies Not Reportable 02/01/20 04:32 Pelger-Huet Anomaly Not Reportable 02/01/20 04:32 [place] Rods Not Reportable 02/01/20 04:32 Platelet Estimate Consistent w auto 02/01/20 04:32 Clumped Platelets Not Reportable 02/01/20 04:32 Plt Clumps, EDTA Not Reportable 02/01/20 04:32 Large Platelets Not Reportable 02/01/20 04:32 Giant Platelets Not Reportable 02/01/20 04:32 Platelet Satelliting Not Reportable 02/01/20 04:32 Plt Morphology Comment Not Reportable 02/01/20 04:32 RBC Morphology Not Reportable 02/01/20 04:32 Dimorphic RBCs Not Reportable 02/01/20 04:32 Polychromasia Not Reportable 02/01/20 04:32 Hypochromasia 1+ 02/01/20 04:32 Poikilocytosis Not Reportable 02/01/20 04:32 Anisocytosis 1+ 02/01/20 04:32 Microcytosis Not Reportable 02/01/20 04:32 Macrocytosis Not Reportable 02/01/20 04:32 Spherocytes Not Reportable 02/01/20 04:32 Pappenheimer Bodies Not Reportable 02/01/20 04:32 Sickle Cells Not Reportable 02/01/20 04:32 Target Cells Few 02/01/20 04:32 Tear Drop Cells Not Reportable 02/01/20 04:32 Ovalocytes Few 02/01/20 04:32 Helmet Cells Not Reportable 02/01/20 04:32 [place] Bodies Not Reportable 02/01/20 04:32 [place] Rings Not Reportable 02/01/20 04:32 Leonidas Cells Few 02/01/20 04:32 Bite Cells Not Reportable 02/01/20 04:32 Crenated Cell Not Reportable 02/01/20 04:32 Elliptocytes Not Reportable 02/01/20 04:32 Acanthocytes (Spur) Not Reportable 02/01/20 04:32 Rouleaux Not Reportable 02/01/20 04:32 Hemoglobin C Crystals Not Reportable 02/01/20 04:32 Schistocytes Not Reportable 02/01/20 04:32 Malaria parasites Not Reportable 02/01/20 04:32 Gideon Bodies Not Reportable 02/01/20 04:32 Hem Pathologist Commnt No 02/01/20 04:32 APTT 33.9 Sec. (24.2-36.6) 01/26/20 16:30 PT 14.4 Sec. (12.2-14.9) 02/02/20 05:25 INR 1.11 (0.87-1.13) 02/02/20 05:25 Heparin Anti-Xa Level 0.74 U.I./ml (0.3-0.7) H 01/28/20 08:50 ABG pH 7.549 (7.320-7.450) H 02/02/20 04:33 POC ABG pCO2 35.5 mmHg (32.0-48.0) 02/02/20 04:33 ABG pCO2 33.6 mm Hg 02/01/20 03:14 POC ABG pO2 107.3 mmHg (83-108) 02/02/20 04:33 ABG pO2 124.1 mm Hg (80.0-90.0) H 02/01/20 03:14 POC ABG HCO3 30.3 02/02/20 04:33 ABG HCO3 29.6 mmol/L (20.0-26.0) H 02/01/20 03:14 ABG O2 Saturation 98.7 % (95.0-99.0) 02/01/20 03:14 ABG O2 Content 10.6 (0.0-44) 02/01/20 03:14 POC ABG Base Excess 7.5 02/02/20 04:33 ABG Base Excess 7.0 mmol/L (-2.0-3.0) H 02/01/20 03:14 ABG Hemoglobin 9.8 (12.0-17.5) L 02/02/20 04:33 ABG Oxyhemoglobin 97.8 (94-98) 01/31/20 14:40 ABG Carboxyhemoglobin 1.4 % (0.0-5.0) 02/01/20 03:14 ABG Methemoglobin 0.7 % (0.0-1.5) 02/01/20 03:14 Oxyhemoglobin 96.6 % (95.0-99.0) 02/01/20 03:14 Carboxyhemoglobin 0.5 (0.5-1.5) 01/31/20 14:40 FiO2 25 02/02/20 04:33 Sodium 144 mmol/L (137-145) 02/02/20 05:25 Potassium 2.6 mmol/L (3.6-5.0) L* 02/02/20 05:25 Chloride 100.2 mmol/L (98-107) 02/02/20 05:25 Carbon Dioxide 33 mmol/L (22-30) H 02/02/20 05:25 Anion Gap 13 mmol/L 02/02/20 05:25 BUN 26 mg/dL (7-17) H 02/02/20 05:25 Creatinine 0.6 mg/dL (0.6-1.2) 02/02/20 05:25 Estimated GFR > 60 ml/min 02/02/20 05:25 BUN/Creatinine Ratio 43 % 02/02/20 05:25 Glucose 175 mg/dL (65-100) H 02/02/20 05:25 POC Glucose 181 (70-105) H 02/02/20 05:40 Hemoglobin A1c 5.3 % (4-6) 01/11/20 00:45 Lactic Acid 1.30 mmol/L (0.7-2.0) 01/26/20 23:27 Calcium 7.9 mg/dL (8.4-10.2) L 02/02/20 05:25 Phosphorus 1.60 mg/dL (2.5-4.5) L 02/01/20 04:32 Magnesium 1.80 mg/dL (1.7-2.3) 02/01/20 04:32 Total Bilirubin 0.20 mg/dL (0.1-1.2) 01/31/20 12:40 AST 18 units/L (5-40) 01/31/20 12:40 ALT 23 units/L (7-56) 01/31/20 12:40 Alkaline Phosphatase 60 units/L (35-129) 01/31/20 12:40 C-Reactive Protein 14.80 mg/dL (0.00-1.30) H 01/29/20 Unknown Total Protein 4.8 g/dL (6.3-8.2) L 01/31/20 12:40 Albumin 2.3 g/dL (3.9-5) L 01/31/20 12:40 Albumin/Globulin Ratio 0.9 % 01/31/20 12:40 TSH 2.440 mlU/mL (0.270-4.200) 01/10/20 10:10 Procalcitonin 1.86 ng/mL (<0.15) 01/29/20 Unknown Urine Color [place] (Yellow) 01/08/20 Unknown Urine Turbidity Cloudy (Clear) 01/08/20 Unknown Urine pH 5.0 (5.0-7.0) 01/08/20 Unknown Ur Specific [place] 1.018 (1.003-1.030) 01/08/20 Unknown Urine Protein 30 mg/dl mg/dL (Negative) 01/08/20 Unknown Urine Glucose (UA) Neg mg/dL (Negative) 01/08/20 Unknown Urine Ketones Neg mg/dL (Negative) 01/08/20 Unknown Urine Blood Mod (Negative) 01/08/20 Unknown Urine Nitrite Neg (Negative) 01/08/20 Unknown Urine Bilirubin Neg (Negative) 01/08/20 Unknown Urine Urobilinogen < 2.0 mg/dL (<2.0) 01/08/20 Unknown Ur Leukocyte Esterase Sm (Negative) 01/08/20 Unknown Urine WBC (Auto) 11.0 /HPF (0.0-6.0) H 01/08/20 Unknown Urine RBC (Auto) 7.0 /HPF (0.0-6.0) 01/08/20 Unknown U Epithel Cells (Auto) < 1.0 /HPF (0-13.0) 01/08/20 Unknown Urine Bacteria (Auto) 1+ /HPF (Negative) 01/08/20 Unknown Urine Mucus 2+ /HPF 01/08/20 Unknown Urine Yeast (Budding) 1+ /HPF 01/08/20 Unknown Vancomycin Trough 7.9 ug/mL (5.0-20.0) 01/17/20 16:04 Mejía/IV: Voiding Method Incontinent IV Catheter Type [Left Upper PICC Line arm] IV Catheter Type [Right Upper INT / Saline Lock arm] IV Catheter Type [Right Peripheral IV Forearm] Active Medications - Current Medications Current Medications: Generic Name Dose Route Start Last Admin Trade Name Freq PRN Reason Stop Dose Admin Acetaminophen 650 mg 01/08/20 23:14 01/18/20 06:03 Tylenol PO 650 mg Q4H PRN Administration Pain MILD(1-3)/Fever >100.5/GARCIA Lipase/Protease/Amylase 1 each 01/17/20 08:37 Pancreaze 10,500 Unit FEEDTUBE PRN PRN For Clogged Feeding Tube Atorvastatin Calcium 10 mg 01/09/20 22:00 02/01/20 21:58 Atorvastatin PO 10 mg QHS BRO Administration Dextrose 0 ml 01/08/20 23:14 01/26/20 17:44 D50w (25gm) Syringe IV 25 ml Q30MIN PRN Administration Hypoglycemia Protocol Donepezil HCl 10 mg 01/09/20 22:00 02/01/20 21:58 Aricept PO 10 mg QHS BRO Administration Famotidine 20 mg 01/27/20 10:00 02/01/20 21:57 Pepcid PO 20 mg BID BRO Administration Fentanyl 50 mcg 01/28/20 10:57 Sublimaze IV Q10MIN PRN ANALGESIA Fluticasone Propionate 100 mcg 01/25/20 20:00 01/26/20 06:09 Flonase NS 100 mcg QDAY PRN Administration Nasal Congestion Furosemide 40 mg 01/29/20 06:00 02/02/20 05:49 Lasix IV 40 mg 0600,1800 BRO Administration Heparin Sodium (Porcine) 5,000 unit 01/28/20 10:00 02/01/20 21:59 Heparin SUB-Q 5,000 unit Q12HR BRO Administration Hydrocortisone Sodium Succinate 75 mg 02/01/20 15:28 02/02/20 05:49 Solu-Cortef IV 75 mg Q8HR BRO Administration Hydrophilic Ointment 1 applic 01/28/20 10:57 Vaseline Lip Therapy TP Q2HR PRN Dry Lips Piperacillin Sod/Tazobactam Sod 4.5 gm in 100 mls @ 200 mls/hr 01/19/20 14:00 02/02/20 05:50 Zosyn/Ns 4.5gm/100ml IV 02/27/20 22:29 200 mls/hr Q8HR BRO Administration Protocol Norepinephrine 4 mg in 250 mls @ 7.5 mls/hr 01/26/20 20:00 01/30/20 06:00 Levophed Drip 4 Mg/Ns 250 Ml IV 3 mcg/min TITR BRO 11.25 mls/hr Titration Protocol 2 MCG/MIN Fentanyl Citrate 2,000 mcg in 100 mls @ 1.603 mls/hr 01/28/20 11:00 Fentanyl Drip Premix IV TITR BRO Protocol 0.5 MCG/KG/HR Potassium Chloride 10 meq in 100 mls @ 100 mls/hr 02/02/20 09:00 Kcl 10meq/100ml IV 02/02/20 12:59 Q1H BRO Insulin Human Regular 0 unit 01/27/20 12:00 02/02/20 05:48 Humulin R SUB-Q 1 unit Q6HR BRO Administration Protocol Magnesium Hydroxide 30 ml 01/08/20 23:14 Milk Of Magnesia PO Q4H PRN Constipation Megestrol Acetate 400 mg 01/12/20 11:00 02/01/20 09:19 Megestrol PO 400 mg QDAY BRO Administration Mirtazapine 15 mg 01/09/20 22:00 02/01/20 22:00 Remeron PO 15 mg QHS BRO Administration Multi-Ingred Cream/Lotion/Oil/Oint 1 applic 01/28/20 10:57 Artificial Tears Ophth Oint OU Q4HR PRN Dry Eye(s) Ondansetron HCl 4 mg 01/08/20 23:14 Zofran IV Q8H PRN Nausea And Vomiting Potassium Chloride 40 meq 02/02/20 09:00 Potassium Chloride FEEDTUBE 02/02/20 12:01 Q3H BRO Simple Syrup 15 ml 01/17/20 08:37 Simple Syrup FEEDTUBE PRN PRN Hypoglycemia Simple Syrup 30 ml 01/17/20 08:37 Simple Syrup FEEDTUBE PRN PRN Hypoglycemia Sodium Bicarbonate 325 mg 01/17/20 08:37 Sodium Bicarbonate FEEDTUBE PRN PRN For Clogged Feeding Tube Sodium Chloride 10 ml 01/09/20 10:00 02/01/20 22:00 Sodium Chloride Flush Syringe 10 Ml IV 10 ml BID BRO Administration Sodium Chloride 10 ml 01/08/20 23:14 Sodium Chloride Flush Syringe 10 Ml IV PRN PRN LINE FLUSH Trazodone HCl 25 mg 01/09/20 22:00 02/01/20 21:57 Desyrel PO 25 mg QHS BRO Administration Nutrition/Malnutrition Assess - Dietary Evaluation Nutrition/Malnutrition Findings: Nutrition Notes Start: 01/09/20 12:13 Freq: Status: Active Protocol: Document 01/30/20 13:51 [email or web address] (Rec: 01/30/20 14:35 [email or web address]) Co-Sign 01/30/20 13:51 LP Nutrition Notes Initial or Follow up Reassessment Current Diagnosis Decubitus(Pressure Ulcer), Diabetes,Sepsis Other Pertinent Diagnosis UTI, dementia, PE, Sacral wound Current Diet Vital AF 1.2 at 50ml/hr Labs/Tests 01/28 Na 148 K 3.5 BUN 20 BG 137 Pertinent Medications Levophed Height 5 ft 2 in Weight 62.5 kg [place] Body Weight (kg) 50.00 BMI 25.2 Weight change and time frame Wt change noted Subjective/Other Information F/U for TF tolerance. Per chart, Pt TF running at 50ml/ hr. Percent of energy/protein needs met: 92%/100% Burn Absent Trauma Absent Current % PO Negligible Minimum of two criteria Yes Fluid Accumulation Moderate to Severe (severe) Reduced Insurance Claim Representative Strength Measurably Reduced (severe) #3 Nutrition Diagnosis Malnutrition Diagnosis Progress(for reassessment Continues documentation) #2 Nutrition Diagnosis Inadequate oral intake Diagnosis Progress(for reassessment Continues documentation) #1 Nutrition Diagnosis Increased nutrient needs ( specify in comment below) Diagnosis Progress(for reassessment Continues documentation) Is patient on ventilator? Yes Is Patient Ambulatory and/or Out of Bed No REE-([place] Jeor-confined to bed) 1323.876 Kcal/Kg value to use for calculation 25 Approximate Energy Requirements Using 1563 kcal/Kg Calculation Used for Recommendations Kcal/kg Additional Notes Protein needs 77-128g(1.2-2g/ kg) Fluid needs 1ml/kcal Nutrition Intervention Change Diet Order: Continue Nutrition Support: Vital AF 1.2 at 50ml/hr Flush 80ml q4h Flush 200ml q4h per MD Kcal 1,440 Protein (gm) 90 Fluid (mL) 973 Goal #1 Meet at least 80% of kcal and protein needs via TF Goal #2 TF tolerance Goal #3 Wound Healing Anticipated Discharge Needs: Undetermined at this time Follow-Up By: 02/03/20 Additional Comments F/U TF tolerance
[2020-02-02 09:15] LABS: Anisocytosis 1+; Band Neutrophils # (Manual) 0.3 K/mm3; Basophils % (Manual) 0 % (0.0-1.8); Burr Cells Few; Eosinophils % (Manual) 0 % (0.0-4.3); Hypochromasia 1+; Poikilocytosis 1+; Total Cells Counted 100
[2020-02-02 09:16] LABS: Ovalocytes Few; Platelet Estimate Consistent w Auto; Schistocytes Few
[2020-02-02] MEDS: POTASSIUM CHLORIDE 10 MEQ 10 MEQ/100 ML BAG IV SCH ×4 (09:18→12:31)
[2020-02-02] MEDS: POTASSIUM CHLORIDE 20 MEQ PACKET FEEDTUBE SCH ×2 (09:19→11:29)
[2020-02-02] MEDS: FAMOTIDINE 20 MG TAB PO SCH ×2 (09:53→21:26)
[2020-02-02] MEDS: HEPARIN 5,000 UNIT/1 ML VIAL SUB-Q SCH ×2 (09:53→21:29)
[2020-02-02] MEDS: MEGESTROL 400 MG/10 ML ORAL LIQD PO SCH (09:58)
[2020-02-02] MEDS ORDERED: MAGNESIUM SULFATE 2 GM/50 ML BAG IV ONE (10:00)
--- NOTE | 2020-02-02 10:05 | Procedure Note ---
Date of procedure: 01/28/20 Pre-op diagnosis: Acute hypoxemic respiraotory failure with left lung hemiopacification Post-op diagnosis: same Procedure: Fiberoptic bronchsocopy wia a pre-existing ETT Telephone consent had been obtained from the patient's son and daughter in law. Consent was signed and filed as part of the medical records Patient is on MVS, FIO2 increased to 100%, PEEP at 5 A fiberoptic bronchoscope was placed via an elbow connector to the ETT. Thick copious secretions in ETT. The jennifer was edematous, copious secretions in the left lung. The left upper lobe, lingula and lower lobe were inspected- no endobronchial lesions. The right lung UL, middle and lower lobes were inspected- no endobronchial lesions seen. Therapeutic suctioning of the lungs was done. Mixed bronchial washings were obtained for respiratory cultures. Patient tolerated the procedure well Anesthesia: other (IV Fentanyl) Surgeon: MATILDE CASPER Estimated blood loss: none Condition: critical Disposition: ICU
--- NOTE | 2020-02-02 10:19 | Progress Note ---
Assessment and Plan Severe sepsis with shock. Left lung atelectasis. Left pleural effusion. Acute hypoxemic respiratory failure. Acute possibly on chronic encephalopathy. History of diabetes. Urinary tract infection. History of pulmonary embolism, diagnosed several months ago. Sacral decubitus ulcer. Dementia. Anemia that is normocytic. -Discussed with her , her son soy need fro endotracheal intubation and MVS if they want ongoing aggressive full care. They are all in agreement. Patient will be intubated, RSI Once intubated, VAP bundle Critical care bundles - awaiting thoracentesis, medical management of atelectasis -Lower extremity dopplers, if negative- start VTE prophylaxis -Stop furosemide while she is on vasopressor support - continue bronchodilators with pulmonary hygiene per RT -Mucomyst, chest PT to [facility] left lung - continue accuchecks with glycemic control per SSI (While critically ill target blood glucose of 140-180 mg/dL; avoid hypoglycemia) - avoid nephrotoxins, renally dose all medications - continue to avoid benzodiazepines, reduce the possibility of delirium - complete antibiotics per per ID- currently on Zosyn - prn analgesia per CPOT score - Maintenance of sleep-wake cycle, avoid delirium - continue enteral nutritional support, stop bolus tube feedings ad start continuous entric nutritional support -Aspiration precautions - Stress ulcer prophylaxis with famotidine - PT/OT/ROM exercises - continue mobility protocol, frequent turning and off loading to prevent further pressure ulcers -Wound care - Monitor hemodynamics closely - continue other care per attending / other consultants CONDITION: CRITICAL PROGNOSIS: GUARDED CODE STATUS: FULL CODE The high probability of a clinically significant, sudden or life-threatening deterioration of the [respiratory, cardiovascular & neurologic] system(s) required my full and direct attention, intervention and personal management. The aggregate critical care time was [35] minutes without overlap. Time includes spent on; [x] Data Review and interpretation [x] Patient assessment and monitoring of vital signs [x] Documentation [x] Medication orders and management Subjective Date of service: 01/28/20 Principal diagnosis: Bacteremia Interval history: Late entry for 01/28/2020 Patient is seen today for: Severe sepsis with shock;L. lung atelectasis / L. pleural effusion; Acute hypoxemic respiratory failure; Acute possibly on chronic encephalopathy; DM II; UTI; VTE Seen and examined at bedside; 24hour events reviewed; nursing and respiratory care staff consulted; no adverse overnight events reported to me; resting peacefully in bed; remains on NIPPV at 30%- on going desaturations when ever BIPAP is taken off, hypothermic on a warming blanket, minimally responsive. On Norepinephrine at 6mcg, Objective Vital Signs - 12hr 02/01/20 02/01/20 02/01/20 22:30 22:46 23:00 Temperature Pulse Rate 79 79 77 Pulse Rate [ From Monitor] Respiratory 18 18 25 H Rate Blood Pressure 126/69 126/69 125/63 O2 Sat by Pulse 100 100 100 Oximetry 02/01/20 02/01/20 02/01/20 23:15 23:26 23:30 Temperature Pulse Rate 75 78 78 Pulse Rate [ From Monitor] Respiratory 18 31 H 19 Rate Blood Pressure 131/62 131/62 131/62 O2 Sat by Pulse 100 100 100 Oximetry 02/01/20 02/01/20 02/02/20 23:31 23:45 00:00 Temperature 98.4 F Pulse Rate 76 76 Pulse Rate [ 76 From Monitor] Respiratory 35 H 23 Rate Blood Pressure 118/60 117/59 O2 Sat by Pulse 100 100 Oximetry 02/02/20 02/02/20 02/02/20 00:15 00:30 00:45 Temperature Pulse Rate 75 76 77 Pulse Rate [ From Monitor] Respiratory 19 20 24 Rate Blood Pressure 121/60 127/62 127/62 O2 Sat by Pulse 100 100 100 Oximetry 02/02/20 02/02/20 02/02/20 01:00 01:15 01:30 Temperature Pulse Rate 73 86 79 Pulse Rate [ From Monitor] Respiratory 18 18 19 Rate Blood Pressure 120/57 114/64 114/63 O2 Sat by Pulse 100 100 100 Oximetry 02/02/20 02/02/20 02/02/20 01:45 02:00 02:15 Temperature Pulse Rate 84 81 78 Pulse Rate [ From Monitor] Respiratory 26 H 17 16 Rate Blood Pressure 114/64 118/64 117/67 O2 Sat by Pulse 100 100 100 Oximetry 02/02/20 02/02/20 02/02/20 02:30 02:45 02:47 Temperature 98.8 F Pulse Rate 81 96 H Pulse Rate [ From Monitor] Respiratory 15 11 L Rate Blood Pressure 123/59 118/64 O2 Sat by Pulse 100 100 Oximetry 02/02/20 02/02/20 02/02/20 03:00 03:15 03:30 Temperature Pulse Rate 90 90 88 Pulse Rate [ From Monitor] Respiratory 18 22 20 Rate Blood Pressure 111/60 111/60 123/62 O2 Sat by Pulse 100 100 100 Oximetry 02/02/20 02/02/20 02/02/20 03:45 04:00 04:09 Temperature Pulse Rate 74 86 81 Pulse Rate [ 86 From Monitor] Respiratory 17 19 Rate Blood Pressure 110/55 132/68 132/68 O2 Sat by Pulse 100 100 100 Oximetry 02/02/20 02/02/20 02/02/20 04:15 04:30 04:45 Temperature Pulse Rate 92 H 77 74 Pulse Rate [ From Monitor] Respiratory 19 14 15 Rate Blood Pressure 138/70 123/60 119/58 O2 Sat by Pulse 100 100 100 Oximetry 02/02/20 02/02/20 02/02/20 05:00 05:15 05:30 Temperature Pulse Rate 80 85 76 Pulse Rate [ From Monitor] Respiratory 15 20 16 Rate Blood Pressure 121/61 117/61 121/63 O2 Sat by Pulse 100 100 100 Oximetry 02/02/20 02/02/20 02/02/20 05:45 06:00 06:15 Temperature Pulse Rate 76 74 71 Pulse Rate [ From Monitor] Respiratory 17 15 15 Rate Blood Pressure 123/63 123/59 118/57 O2 Sat by Pulse 100 100 100 Oximetry 02/02/20 02/02/20 02/02/20 06:30 06:45 07:20 Temperature Pulse Rate 87 89 86 Pulse Rate [ From Monitor] Respiratory 14 19 8 L Rate Blood Pressure 133/73 133/65 124/65 O2 Sat by Pulse 100 100 100 Oximetry Constitutional: lethargic, other (FFM on BIPAP, chronically ill looking) Eyes: non-icteric ENT: oropharynx moist, other (ETT 23 cm FLORENCIO) Neck: supple, no lymphadenopathy Effort: mildly labored Ascultation: Bilateral: diminished breath sounds (Left lung), rales (bases predominant), rhonchi Percussion: Bilateral: not dull Cardiovascular: regular rate and rhythm, other (S1,S2) Gastrointestinal: normoactive bowel sounds, soft, non-tender, other (PEG in plac e) Integumentary: decubitus ulcer Extremities: edema, anasarca Neurologic: unable to assess Psychiatric: other (Unable to assess secondary to mental status) CBC and BMP: 02/02/20 05:25 02/02/20 05:25 ABG, PT/INR, D-dimer: ABG ABG pH 7.549 (7.320-7.450) H 02/02/20 04:33 POC ABG pCO2 35.5 mmHg (32.0-48.0) 02/02/20 04:33 ABG pCO2 33.6 mm Hg 02/01/20 03:14 POC ABG pO2 107.3 mmHg (83-108) 02/02/20 04:33 ABG pO2 124.1 mm Hg (80.0-90.0) H 02/01/20 03:14 POC ABG HCO3 30.3 02/02/20 04:33 ABG O2 Saturation 98.7 % (95.0-99.0) 02/01/20 03:14 PT/INR, D-dimer PT 14.4 Sec. (12.2-14.9) 02/02/20 05:25 INR 1.11 (0.87-1.13) 02/02/20 05:25 Abnormal lab findings: Abnormal Labs 01/08/20 01/08/20 01/08/20 16:29 16:29 16:29 WBC 13.5 H RBC Hgb Hct MCHC RDW 15.5 H Plt Count Lymph % (Auto) Lymph # Seg Neutrophils % Seg Neuts % (Manual) 85.0 H Lymphocytes % (Manual) 11.0 L Seg Neutrophils # Seg Neutrophils # Man 11.5 H Nucleated RBC % Lymphocytes # (Manual) Monocytes # (Manual) PT INR Heparin Anti-Xa Level POC ABG pO2 ABG pH ABG Hemoglobin ABG Oxyhemoglobin ABG pO2 ABG HCO3 ABG O2 Saturation ABG Base Excess Sodium 161 H* Potassium Chloride 125.5 H Carbon Dioxide 20 L BUN 30 H Creatinine Glucose 115 H POC Glucose Lactic Acid 2.20 H* Calcium 7.9 L AST 48 H Phosphorus Total Protein Albumin 2.5 L C-Reactive Protein Urine WBC (Auto) 01/08/20 01/08/20 01/08/20 19:02 23:30 Unknown WBC RBC Hgb Hct MCHC RDW Plt Count Lymph % (Auto) Lymph # Seg Neutrophils % Seg Neuts % (Manual) Lymphocytes % (Manual) Seg Neutrophils # Seg Neutrophils # Man Nucleated RBC % Lymphocytes # (Manual) Monocytes # (Manual) PT INR Heparin Anti-Xa Level POC ABG pO2 ABG pH ABG Hemoglobin ABG Oxyhemoglobin ABG pO2 ABG HCO3 ABG O2 Saturation ABG Base Excess Sodium Potassium Chloride Carbon Dioxide BUN Creatinine Glucose POC Glucose Lactic Acid 2.10 H* 2.50 H* Calcium AST Phosphorus Total Protein Albumin C-Reactive Protein Urine WBC (Auto) 11.0 H 01/09/20 01/09/20 01/09/20 00:19 00:54 05:52 WBC 13.5 H RBC 3.02 L Hgb 9.0 L D Hct 27.4 L D MCHC RDW Plt Count Lymph % (Auto) 9.1 L Lymph # Seg Neutrophils % 87.6 H Seg Neuts % (Manual) Lymphocytes % (Manual) Seg Neutrophils # 11.8 H Seg Neutrophils # Man Nucleated RBC % Lymphocytes # (Manual) Monocytes # (Manual) PT INR Heparin Anti-Xa Level POC ABG pO2 ABG pH ABG Hemoglobin ABG Oxyhemoglobin ABG pO2 ABG HCO3 ABG O2 Saturation ABG Base Excess Sodium Potassium Chloride Carbon Dioxide BUN Creatinine Glucose POC Glucose 118 H 116 H Lactic Acid Calcium AST Phosphorus Total Protein Albumin C-Reactive Protein Urine WBC (Auto) 01/09/20 01/09/20 01/09/20 05:52 05:52 13:03 WBC RBC Hgb Hct MCHC RDW Plt Count Lymph % (Auto) Lymph # Seg Neutrophils % Seg Neuts % (Manual) Lymphocytes % (Manual) Seg Neutrophils # Seg Neutrophils # Man Nucleated RBC % Lymphocytes # (Manual) Monocytes # (Manual) PT 17.1 H INR 1.36 H Heparin Anti-Xa Level POC ABG pO2 ABG pH ABG Hemoglobin ABG Oxyhemoglobin ABG pO2 ABG HCO3 ABG O2 Saturation ABG Base Excess Sodium 162 H* Potassium 3.0 L D Chloride 128.3 H Carbon Dioxide BUN 23 H Creatinine Glucose POC Glucose 55 L Lactic Acid Calcium 7.6 L AST Phosphorus Total Protein Albumin C-Reactive Protein Urine WBC (Auto) 01/09/20 01/09/20 01/09/20 21:22 21:50 22:28 WBC RBC Hgb Hct MCHC RDW Plt Count Lymph % (Auto) Lymph # Seg Neutrophils % Seg Neuts % (Manual) Lymphocytes % (Manual) Seg Neutrophils # Seg Neutrophils # Man Nucleated RBC % Lymphocytes # (Manual) Monocytes # (Manual) PT INR Heparin Anti-Xa Level POC ABG pO2 ABG pH ABG Hemoglobin ABG Oxyhemoglobin ABG pO2 ABG HCO3 ABG O2 Saturation ABG Base Excess Sodium 159 H Potassium 5.1 H D Chloride 128.5 H Carbon Dioxide 16 L BUN 23 H Creatinine Glucose 51 L POC Glucose 52 L 106 H Lactic Acid Calcium 8.2 L AST Phosphorus Total Protein Albumin C-Reactive Protein Urine WBC (Auto) 01/10/20 01/10/20 01/10/20 05:23 09:11 10:10 WBC 13.4 H RBC Hgb Hct MCHC RDW Plt Count Lymph % (Auto) 7.2 L Lymph # 1.0 L Seg Neutrophils % 90.0 H Seg Neuts % (Manual) Lymphocytes % (Manual) Seg Neutrophils # 12.0 H Seg Neutrophils # Man Nucleated RBC % Lymphocytes # (Manual) Monocytes # (Manual) PT INR Heparin Anti-Xa Level POC ABG pO2 ABG pH ABG Hemoglobin ABG Oxyhemoglobin ABG pO2 ABG HCO3 ABG O2 Saturation ABG Base Excess Sodium 155 H Potassium Chloride 122.8 H Carbon Dioxide 21 L BUN 19 H Creatinine Glucose POC Glucose 120 H Lactic Acid Calcium AST Phosphorus Total Protein Albumin C-Reactive Protein Urine WBC (Auto) 01/10/20 01/10/20 01/10/20 11:47 11:57 17:09 WBC RBC Hgb Hct MCHC RDW Plt Count Lymph % (Auto) Lymph # Seg Neutrophils % Seg Neuts % (Manual) Lymphocytes % (Manual) Seg Neutrophils # Seg Neutrophils # Man Nucleated RBC % Lymphocytes # (Manual) Monocytes # (Manual) PT INR Heparin Anti-Xa Level POC ABG pO2 ABG pH ABG Hemoglobin ABG Oxyhemoglobin ABG pO2 ABG HCO3 ABG O2 Saturation ABG Base Excess Sodium 153 H Potassium Chloride 118.3 H Carbon Dioxide 20 L BUN 19 H Creatinine Glucose 113 H POC Glucose 142 H 125 H Lactic Acid Calcium AST Phosphorus Total Protein Albumin C-Reactive Protein Urine WBC (Auto) 01/10/20 01/10/20 01/11/20 20:27 22:00 00:45 WBC RBC Hgb Hct MCHC RDW Plt Count Lymph % (Auto) Lymph # Seg Neutrophils % Seg Neuts % (Manual) Lymphocytes % (Manual) Seg Neutrophils # Seg Neutrophils # Man Nucleated RBC % Lymphocytes # (Manual) Monocytes # (Manual) PT INR Heparin Anti-Xa Level POC ABG pO2 ABG pH ABG Hemoglobin ABG Oxyhemoglobin ABG pO2 ABG HCO3 ABG O2 Saturation ABG Base Excess Sodium 153 H 154 H Potassium 3.3 L 3.2 L Chloride 117.0 H 118.9 H Carbon Dioxide 20 L BUN Creatinine Glucose POC Glucose 136 H Lactic Acid Calcium 8.3 L 8.0 L AST Phosphorus Total Protein Albumin C-Reactive Protein Urine WBC (Auto) 01/11/20 01/11/20 01/11/20 07:06 08:03 11:54 WBC RBC Hgb Hct MCHC RDW Plt Count Lymph % (Auto) Lymph # Seg Neutrophils % Seg Neuts % (Manual) Lymphocytes % (Manual) Seg Neutrophils # Seg Neutrophils # Man Nucleated RBC % Lymphocytes # (Manual) Monocytes # (Manual) PT INR Heparin Anti-Xa Level POC ABG pO2 ABG pH ABG Hemoglobin ABG Oxyhemoglobin ABG pO2 ABG HCO3 ABG O2 Saturation ABG Base Excess Sodium 151 H Potassium Chloride 118.7 H Carbon Dioxide 21 L BUN Creatinine Glucose 107 H POC Glucose 118 H 164 H Lactic Acid Calcium 8.3 L AST Phosphorus Total Protein Albumin C-Reactive Protein Urine WBC (Auto) 01/11/20 01/12/20 01/12/20 16:28 00:19 05:40 WBC RBC Hgb Hct MCHC RDW Plt Count Lymph % (Auto) Lymph # Seg Neutrophils % Seg Neuts % (Manual) Lymphocytes % (Manual) Seg Neutrophils # Seg Neutrophils # Man Nucleated RBC % Lymphocytes # (Manual) Monocytes # (Manual) PT INR Heparin Anti-Xa Level POC ABG pO2 ABG pH ABG Hemoglobin ABG Oxyhemoglobin ABG pO2 ABG HCO3 ABG O2 Saturation ABG Base Excess Sodium 148 H Potassium Chloride 111.6 H Carbon Dioxide 19 L BUN Creatinine Glucose 128 H POC Glucose 132 H 179 H Lactic Acid Calcium 8.2 L AST Phosphorus Total Protein Albumin C-Reactive Protein Urine WBC (Auto) 01/12/20 01/12/20 01/12/20 06:17 11:37 17:21 WBC RBC Hgb Hct MCHC RDW Plt Count Lymph % (Auto) Lymph # Seg Neutrophils % Seg Neuts % (Manual) Lymphocytes % (Manual) Seg Neutrophils # Seg Neutrophils # Man Nucleated RBC % Lymphocytes # (Manual) Monocytes # (Manual) PT INR Heparin Anti-Xa Level POC ABG pO2 ABG pH ABG Hemoglobin ABG Oxyhemoglobin ABG pO2 ABG HCO3 ABG O2 Saturation ABG Base Excess Sodium Potassium Chloride Carbon Dioxide BUN Creatinine Glucose POC Glucose 140 H 142 H 133 H Lactic Acid Calcium AST Phosphorus Total Protein Albumin C-Reactive Protein Urine WBC (Auto) 01/12/20 01/13/20 01/13/20 23:14 05:26 07:00 WBC RBC Hgb Hct MCHC RDW Plt Count Lymph % (Auto) Lymph # Seg Neutrophils % Seg Neuts % (Manual) Lymphocytes % (Manual) Seg Neutrophils # Seg Neutrophils # Man Nucleated RBC % Lymphocytes # (Manual) Monocytes # (Manual) PT INR Heparin Anti-Xa Level POC ABG pO2 ABG pH ABG Hemoglobin ABG Oxyhemoglobin ABG pO2 ABG HCO3 ABG O2 Saturation ABG Base Excess Sodium Potassium Chloride 110.0 H Carbon Dioxide BUN Creatinine Glucose 139 H POC Glucose 135 H 162 H Lactic Acid Calcium 7.8 L AST Phosphorus Total Protein Albumin C-Reactive Protein Urine WBC (Auto) 01/13/20 01/13/20 01/13/20 12:14 17:52 21:40 WBC RBC Hgb Hct MCHC RDW Plt Count Lymph % (Auto) Lymph # Seg Neutrophils % Seg Neuts % (Manual) Lymphocytes % (Manual) Seg Neutrophils # Seg Neutrophils # Man Nucleated RBC % Lymphocytes # (Manual) Monocytes # (Manual) PT INR Heparin Anti-Xa Level POC ABG pO2 ABG pH ABG Hemoglobin ABG Oxyhemoglobin ABG pO2 ABG HCO3 ABG O2 Saturation ABG Base Excess Sodium Potassium Chloride Carbon Dioxide BUN Creatinine Glucose POC Glucose 205 H 172 H 186 H Lactic Acid Calcium AST Phosphorus Total Protein Albumin C-Reactive Protein Urine WBC (Auto) 01/14/20 01/14/20 01/14/20 04:28 11:01 11:01 WBC 14.8 H RBC 3.20 L Hgb 9.5 L Hct 28.0 L MCHC RDW Plt Count Lymph % (Auto) Lymph # Seg Neutrophils % Seg Neuts % (Manual) Lymphocytes % (Manual) Seg Neutrophils # Seg Neutrophils # Man Nucleated RBC % Lymphocytes # (Manual) Monocytes # (Manual) PT INR Heparin Anti-Xa Level POC ABG pO2 ABG pH ABG Hemoglobin ABG Oxyhemoglobin ABG pO2 ABG HCO3 ABG O2 Saturation ABG Base Excess Sodium Potassium 3.2 L Chloride Carbon Dioxide BUN Creatinine 0.4 L Glucose POC Glucose 115 H Lactic Acid Calcium 8.0 L AST Phosphorus Total Protein Albumin C-Reactive Protein Urine WBC (Auto) 01/14/20 01/14/20 01/14/20 11:01 16:33 22:32 WBC RBC Hgb Hct MCHC RDW Plt Count Lymph % (Auto) Lymph # Seg Neutrophils % Seg Neuts % (Manual) Lymphocytes % (Manual) Seg Neutrophils # Seg Neutrophils # Man Nucleated RBC % Lymphocytes # (Manual) Monocytes # (Manual) PT 15.8 H INR 1.23 H Heparin Anti-Xa Level POC ABG pO2 ABG pH ABG Hemoglobin ABG Oxyhemoglobin ABG pO2 ABG HCO3 ABG O2 Saturation ABG Base Excess Sodium Potassium Chloride Carbon Dioxide BUN Creatinine Glucose POC Glucose 58 L 188 H Lactic Acid Calcium AST Phosphorus Total Protein Albumin C-Reactive Protein Urine WBC (Auto) 01/15/20 01/15/20 01/15/20 05:35 06:19 17:17 WBC RBC Hgb Hct MCHC RDW Plt Count Lymph % (Auto) Lymph # Seg Neutrophils % Seg Neuts % (Manual) Lymphocytes % (Manual) Seg Neutrophils # Seg Neutrophils # Man Nucleated RBC % Lymphocytes # (Manual) Monocytes # (Manual) PT INR Heparin Anti-Xa Level POC ABG pO2 ABG pH ABG Hemoglobin ABG Oxyhemoglobin ABG pO2 ABG HCO3 ABG O2 Saturation ABG Base Excess Sodium Potassium Chloride Carbon Dioxide BUN Creatinine 0.5 L Glucose 104 H POC Glucose 106 H 183 H Lactic Acid Calcium 7.8 L AST Phosphorus Total Protein Albumin C-Reactive Protein Urine WBC (Auto) 01/15/20 01/16/20 01/16/20 22:29 05:35 05:59 WBC 14.7 H RBC 3.04 L Hgb 9.0 L Hct 27.0 L MCHC RDW Plt Count Lymph % (Auto) 9.1 L Lymph # Seg Neutrophils % 87.3 H Seg Neuts % (Manual) Lymphocytes % (Manual) Seg Neutrophils # 12.9 H Seg Neutrophils # Man Nucleated RBC % Lymphocytes # (Manual) Monocytes # (Manual) PT INR Heparin Anti-Xa Level POC ABG pO2 ABG pH ABG Hemoglobin ABG Oxyhemoglobin ABG pO2 ABG HCO3 ABG O2 Saturation ABG Base Excess Sodium Potassium Chloride Carbon Dioxide BUN Creatinine Glucose POC Glucose 228 H 130 H Lactic Acid Calcium AST Phosphorus Total Protein Albumin C-Reactive Protein Urine WBC (Auto) 01/16/20 01/16/20 01/16/20 09:52 12:49 17:30 WBC RBC Hgb Hct MCHC RDW Plt Count Lymph % (Auto) Lymph # Seg Neutrophils % Seg Neuts % (Manual) Lymphocytes % (Manual) Seg Neutrophils # Seg Neutrophils # Man Nucleated RBC % Lymphocytes # (Manual) Monocytes # (Manual) PT INR Heparin Anti-Xa Level POC ABG pO2 ABG pH ABG Hemoglobin ABG Oxyhemoglobin ABG pO2 ABG HCO3 ABG O2 Saturation ABG Base Excess Sodium Potassium Chloride Carbon Dioxide BUN Creatinine Glucose POC Glucose 122 H 142 H 192 H Lactic Acid Calcium AST Phosphorus Total Protein Albumin C-Reactive Protein Urine WBC (Auto) 01/16/20 01/17/20 01/17/20 23:01 08:36 08:36 WBC 12.7 H RBC 2.98 L Hgb 8.9 L Hct 26.4 L MCHC RDW Plt Count Lymph % (Auto) 8.8 L Lymph # 1.1 L Seg Neutrophils % 86.7 H Seg Neuts % (Manual) Lymphocytes % (Manual) Seg Neutrophils # 11.0 H Seg Neutrophils # Man Nucleated RBC % Lymphocytes # (Manual) Monocytes # (Manual) PT INR Heparin Anti-Xa Level POC ABG pO2 ABG pH ABG Hemoglobin ABG Oxyhemoglobin ABG pO2 ABG HCO3 ABG O2 Saturation ABG Base Excess Sodium Potassium 3.3 L D Chloride Carbon Dioxide BUN Creatinine 0.4 L Glucose POC Glucose 141 H Lactic Acid Calcium 8.1 L AST Phosphorus Total Protein 4.6 L Albumin 1.6 L C-Reactive Protein Urine WBC (Auto) 01/17/20 01/17/20 01/18/20 11:43 23:56 06:27 WBC RBC Hgb Hct MCHC RDW Plt Count Lymph % (Auto) Lymph # Seg Neutrophils % Seg Neuts % (Manual) Lymphocytes % (Manual) Seg Neutrophils # Seg Neutrophils # Man Nucleated RBC % Lymphocytes # (Manual) Monocytes # (Manual) PT INR Heparin Anti-Xa Level POC ABG pO2 ABG pH ABG Hemoglobin ABG Oxyhemoglobin ABG pO2 ABG HCO3 ABG O2 Saturation ABG Base Excess Sodium Potassium Chloride Carbon Dioxide BUN Creatinine Glucose POC Glucose 137 H 215 H 122 H Lactic Acid Calcium AST Phosphorus Total Protein Albumin C-Reactive Protein Urine WBC (Auto) 01/18/20 01/18/20 01/18/20 07:31 07:31 11:39 WBC 12.1 H RBC 3.23 L Hgb 9.7 L Hct 28.7 L MCHC RDW Plt Count Lymph % (Auto) 9.2 L Lymph # 1.1 L Seg Neutrophils % 85.0 H Seg Neuts % (Manual) Lymphocytes % (Manual) Seg Neutrophils # 10.3 H Seg Neutrophils # Man Nucleated RBC % Lymphocytes # (Manual) Monocytes # (Manual) PT INR Heparin Anti-Xa Level POC ABG pO2 ABG pH ABG Hemoglobin ABG Oxyhemoglobin ABG pO2 ABG HCO3 ABG O2 Saturation ABG Base Excess Sodium Potassium Chloride Carbon Dioxide BUN Creatinine 0.4 L Glucose 108 H POC Glucose 172 H Lactic Acid Calcium AST Phosphorus Total Protein 5.3 L Albumin 2.1 L C-Reactive Protein Urine WBC (Auto) 01/18/20 01/19/20 01/19/20 18:22 00:15 11:30 WBC RBC Hgb Hct MCHC RDW Plt Count Lymph % (Auto) Lymph # Seg Neutrophils % Seg Neuts % (Manual) Lymphocytes % (Manual) Seg Neutrophils # Seg Neutrophils # Man Nucleated RBC % Lymphocytes # (Manual) Monocytes # (Manual) PT INR Heparin Anti-Xa Level POC ABG pO2 ABG pH ABG Hemoglobin ABG Oxyhemoglobin ABG pO2 ABG HCO3 ABG O2 Saturation ABG Base Excess Sodium Potassium Chloride Carbon Dioxide BUN Creatinine Glucose POC Glucose 119 H 135 H 163 H Lactic Acid Calcium AST Phosphorus Total Protein Albumin C-Reactive Protein Urine WBC (Auto) 01/19/20 01/19/20 01/20/20 17:44 22:59 03:44 WBC 11.1 H RBC 2.77 L Hgb 8.4 L Hct 25.0 L MCHC RDW Plt Count Lymph % (Auto) Lymph # Seg Neutrophils % 74.6 H Seg Neuts % (Manual) Lymphocytes % (Manual) Seg Neutrophils # 8.3 H Seg Neutrophils # Man Nucleated RBC % Lymphocytes # (Manual) Monocytes # (Manual) PT INR Heparin Anti-Xa Level POC ABG pO2 ABG pH ABG Hemoglobin ABG Oxyhemoglobin ABG pO2 ABG HCO3 ABG O2 Saturation ABG Base Excess Sodium Potassium Chloride Carbon Dioxide BUN Creatinine Glucose POC Glucose 161 H 182 H Lactic Acid Calcium AST Phosphorus Total Protein Albumin C-Reactive Protein Urine WBC (Auto) 01/20/20 01/21/20 01/21/20 03:44 00:07 05:51 WBC RBC 2.84 L Hgb 8.6 L Hct 25.5 L MCHC RDW Plt Count 463 H Lymph % (Auto) Lymph # Seg Neutrophils % 76.9 H Seg Neuts % (Manual) Lymphocytes % (Manual) Seg Neutrophils # 7.8 H Seg Neutrophils # Man Nucleated RBC % Lymphocytes # (Manual) Monocytes # (Manual) PT INR Heparin Anti-Xa Level POC ABG pO2 ABG pH ABG Hemoglobin ABG Oxyhemoglobin ABG pO2 ABG HCO3 ABG O2 Saturation ABG Base Excess Sodium Potassium Chloride Carbon Dioxide BUN Creatinine 0.4 L Glucose POC Glucose 68 L Lactic Acid Calcium 7.9 L AST Phosphorus Total Protein 4.7 L Albumin 1.9 L C-Reactive Protein Urine WBC (Auto) 01/21/20 01/21/20 01/21/20 05:51 05:58 11:25 WBC RBC Hgb Hct MCHC RDW Plt Count Lymph % (Auto) Lymph # Seg Neutrophils % Seg Neuts % (Manual) Lymphocytes % (Manual) Seg Neutrophils # Seg Neutrophils # Man Nucleated RBC % Lymphocytes # (Manual) Monocytes # (Manual) PT INR Heparin Anti-Xa Level POC ABG pO2 ABG pH ABG Hemoglobin ABG Oxyhemoglobin ABG pO2 ABG HCO3 ABG O2 Saturation ABG Base Excess Sodium Potassium Chloride Carbon Dioxide 20 L BUN Creatinine 0.5 L Glucose 130 H POC Glucose 185 H 163 H Lactic Acid Calcium 7.6 L AST Phosphorus Total Protein 5.0 L Albumin 1.9 L C-Reactive Protein Urine WBC (Auto) 01/21/20 01/21/20 01/22/20 16:22 21:17 01:28 WBC RBC 2.60 L Hgb 8.0 L Hct 23.3 L MCHC RDW Plt Count Lymph % (Auto) Lymph # Seg Neutrophils % 74.8 H Seg Neuts % (Manual) Lymphocytes % (Manual) Seg Neutrophils # Seg Neutrophils # Man Nucleated RBC % Lymphocytes # (Manual) Monocytes # (Manual) PT INR Heparin Anti-Xa Level POC ABG pO2 ABG pH ABG Hemoglobin ABG Oxyhemoglobin ABG pO2 ABG HCO3 ABG O2 Saturation ABG Base Excess Sodium Potassium Chloride Carbon Dioxide BUN Creatinine Glucose POC Glucose 177 H 67 L Lactic Acid Calcium AST Phosphorus Total Protein Albumin C-Reactive Protein Urine WBC (Auto) 01/22/20 01/22/20 01/22/20 01:28 01:28 12:06 WBC RBC Hgb Hct MCHC RDW Plt Count Lymph % (Auto) Lymph # Seg Neutrophils % Seg Neuts % (Manual) Lymphocytes % (Manual) Seg Neutrophils # Seg Neutrophils # Man Nucleated RBC % Lymphocytes # (Manual) Monocytes # (Manual) PT INR Heparin Anti-Xa Level POC ABG pO2 ABG pH ABG Hemoglobin ABG Oxyhemoglobin ABG pO2 ABG HCO3 ABG O2 Saturation ABG Base Excess Sodium Potassium Chloride 107.6 H Carbon Dioxide BUN Creatinine 0.4 L Glucose 152 H POC Glucose 203 H 140 H Lactic Acid Calcium 7.5 L AST Phosphorus Total Protein 4.0 L Albumin 2.0 L C-Reactive Protein Urine WBC (Auto) 01/22/20 01/22/20 01/23/20 16:24 22:55 06:10 WBC RBC 2.68 L Hgb 8.6 L Hct 24.1 L MCHC 36 H RDW Plt Count Lymph % (Auto) Lymph # Seg Neutrophils % Seg Neuts % (Manual) 71.0 H Lymphocytes % (Manual) Seg Neutrophils # Seg Neutrophils # Man Nucleated RBC % Lymphocytes # (Manual) Monocytes # (Manual) PT INR Heparin Anti-Xa Level POC ABG pO2 ABG pH ABG Hemoglobin ABG Oxyhemoglobin ABG pO2 ABG HCO3 ABG O2 Saturation ABG Base Excess Sodium Potassium Chloride Carbon Dioxide BUN Creatinine Glucose POC Glucose 205 H 196 H Lactic Acid Calcium AST Phosphorus Total Protein Albumin C-Reactive Protein Urine WBC (Auto) 01/23/20 01/23/20 01/23/20 06:10 07:35 11:59 WBC RBC Hgb Hct MCHC RDW Plt Count Lymph % (Auto) Lymph # Seg Neutrophils % Seg Neuts % (Manual) Lymphocytes % (Manual) Seg Neutrophils # Seg Neutrophils # Man Nucleated RBC % Lymphocytes # (Manual) Monocytes # (Manual) PT INR Heparin Anti-Xa Level POC ABG pO2 ABG pH ABG Hemoglobin ABG Oxyhemoglobin ABG pO2 ABG HCO3 ABG O2 Saturation ABG Base Excess Sodium Potassium Chloride 108.8 H Carbon Dioxide BUN Creatinine 0.4 L Glucose 105 H POC Glucose 111 H 123 H Lactic Acid Calcium 8.0 L AST Phosphorus Total Protein 4.9 L D Albumin 2.0 L C-Reactive Protein Urine WBC (Auto) 01/23/20 01/24/20 01/24/20 22:45 11:24 16:41 WBC RBC Hgb Hct MCHC RDW Plt Count Lymph % (Auto) Lymph # Seg Neutrophils % Seg Neuts % (Manual) Lymphocytes % (Manual) Seg Neutrophils # Seg Neutrophils # Man Nucleated RBC % Lymphocytes # (Manual) Monocytes # (Manual) PT INR Heparin Anti-Xa Level POC ABG pO2 ABG pH ABG Hemoglobin ABG Oxyhemoglobin ABG pO2 ABG HCO3 ABG O2 Saturation ABG Base Excess Sodium Potassium Chloride Carbon Dioxide BUN Creatinine Glucose POC Glucose 180 H 182 H 177 H Lactic Acid Calcium AST Phosphorus Total Protein Albumin C-Reactive Protein Urine WBC (Auto) 01/24/20 01/25/20 01/25/20 23:11 07:12 11:35 WBC RBC Hgb Hct MCHC RDW Plt Count Lymph % (Auto) Lymph # Seg Neutrophils % Seg Neuts % (Manual) Lymphocytes % (Manual) Seg Neutrophils # Seg Neutrophils # Man Nucleated RBC % Lymphocytes # (Manual) Monocytes # (Manual) PT INR Heparin Anti-Xa Level POC ABG pO2 ABG pH ABG Hemoglobin ABG Oxyhemoglobin ABG pO2 ABG HCO3 ABG O2 Saturation ABG Base Excess Sodium Potassium Chloride Carbon Dioxide BUN Creatinine Glucose POC Glucose 142 H 135 H 142 H Lactic Acid Calcium AST Phosphorus Total Protein Albumin C-Reactive Protein Urine WBC (Auto) 01/25/20 01/26/20 01/26/20 16:33 00:04 11:35 WBC RBC Hgb Hct MCHC RDW Plt Count Lymph % (Auto) Lymph # Seg Neutrophils % Seg Neuts % (Manual) Lymphocytes % (Manual) Seg Neutrophils # Seg Neutrophils # Man Nucleated RBC % Lymphocytes # (Manual) Monocytes # (Manual) PT INR Heparin Anti-Xa Level POC ABG pO2 ABG pH ABG Hemoglobin ABG Oxyhemoglobin ABG pO2 ABG HCO3 ABG O2 Saturation ABG Base Excess Sodium Potassium Chloride Carbon Dioxide BUN Creatinine Glucose POC Glucose 247 H 233 H 200 H Lactic Acid Calcium AST Phosphorus Total Protein Albumin C-Reactive Protein Urine WBC (Auto) 01/26/20 01/26/20 01/26/20 16:30 16:30 17:19 WBC RBC Hgb 7.4 L Hct 22.0 L MCHC RDW Plt Count Lymph % (Auto) Lymph # Seg Neutrophils % Seg Neuts % (Manual) Lymphocytes % (Manual) Seg Neutrophils # Seg Neutrophils # Man Nucleated RBC % Lymphocytes # (Manual) Monocytes # (Manual) PT 18.4 H INR 1.50 H Heparin Anti-Xa Level POC ABG pO2 ABG pH ABG Hemoglobin ABG Oxyhemoglobin ABG pO2 ABG HCO3 ABG O2 Saturation ABG Base Excess Sodium Potassium Chloride Carbon Dioxide BUN Creatinine Glucose POC Glucose 67 L Lactic Acid Calcium AST Phosphorus Total Protein Albumin C-Reactive Protein Urine WBC (Auto) 01/26/20 01/26/20 01/27/20 20:24 21:32 00:16 WBC RBC Hgb Hct MCHC RDW Plt Count Lymph % (Auto) Lymph # Seg Neutrophils % Seg Neuts % (Manual) Lymphocytes % (Manual) Seg Neutrophils # Seg Neutrophils # Man Nucleated RBC % Lymphocytes # (Manual) Monocytes # (Manual) PT INR Heparin Anti-Xa Level POC ABG pO2 51.8 L ABG pH ABG Hemoglobin 8.5 L ABG Oxyhemoglobin 84.7 L ABG pO2 ABG HCO3 ABG O2 Saturation ABG Base Excess Sodium Potassium Chloride Carbon Dioxide BUN Creatinine Glucose POC Glucose 162 H 141 H Lactic Acid Calcium AST Phosphorus Total Protein Albumin C-Reactive Protein Urine WBC (Auto) 01/27/20 01/27/20 01/27/20 01:42 02:18 05:57 WBC RBC Hgb Hct MCHC RDW Plt Count Lymph % (Auto) Lymph # Seg Neutrophils % Seg Neuts % (Manual) Lymphocytes % (Manual) Seg Neutrophils # Seg Neutrophils # Man Nucleated RBC % Lymphocytes # (Manual) Monocytes # (Manual) PT INR Heparin Anti-Xa Level 2.00 H POC ABG pO2 ABG pH ABG Hemoglobin ABG Oxyhemoglobin ABG pO2 ABG HCO3 ABG O2 Saturation ABG Base Excess Sodium Potassium Chloride Carbon Dioxide BUN Creatinine Glucose POC Glucose 183 H 124 H Lactic Acid Calcium AST Phosphorus Total Protein Albumin C-Reactive Protein Urine WBC (Auto) 01/27/20 01/27/20 01/27/20 06:30 06:30 12:23 WBC RBC 2.75 L Hgb 8.4 L Hct 24.9 L MCHC RDW 16.0 H Plt Count 474 H Lymph % (Auto) 12.7 L Lymph # Seg Neutrophils % 83.2 H Seg Neuts % (Manual) Lymphocytes % (Manual) Seg Neutrophils # 8.4 H Seg Neutrophils # Man Nucleated RBC % Lymphocytes # (Manual) Monocytes # (Manual) PT INR Heparin Anti-Xa Level POC ABG pO2 ABG pH ABG Hemoglobin ABG Oxyhemoglobin ABG pO2 ABG HCO3 ABG O2 Saturation ABG Base Excess Sodium Potassium 3.5 L Chloride 110.2 H Carbon Dioxide BUN Creatinine 0.4 L Glucose 101 H POC Glucose 126 H Lactic Acid Calcium 7.8 L AST Phosphorus Total Protein Albumin C-Reactive Protein Urine WBC (Auto) 01/27/20 01/27/20 01/28/20 17:31 23:40 00:00 WBC RBC Hgb Hct MCHC RDW Plt Count Lymph % (Auto) Lymph # Seg Neutrophils % Seg Neuts % (Manual) Lymphocytes % (Manual) Seg Neutrophils # Seg Neutrophils # Man Nucleated RBC % Lymphocytes # (Manual) Monocytes # (Manual) PT INR Heparin Anti-Xa Level 2.00 H POC ABG pO2 ABG pH ABG Hemoglobin ABG Oxyhemoglobin ABG pO2 ABG HCO3 ABG O2 Saturation ABG Base Excess Sodium Potassium Chloride Carbon Dioxide BUN Creatinine Glucose POC Glucose 133 H 136 H Lactic Acid Calcium AST Phosphorus Total Protein Albumin C-Reactive Protein Urine WBC (Auto) 01/28/20 01/28/20 01/28/20 04:26 04:26 05:35 WBC RBC Hgb 9.6 L Hct 28.5 L MCHC RDW Plt Count 508 H Lymph % (Auto) Lymph # Seg Neutrophils % Seg Neuts % (Manual) Lymphocytes % (Manual) Seg Neutrophils # Seg Neutrophils # Man Nucleated RBC % Lymphocytes # (Manual) Monocytes # (Manual) PT INR Heparin Anti-Xa Level POC ABG pO2 ABG pH ABG Hemoglobin ABG Oxyhemoglobin ABG pO2 ABG HCO3 ABG O2 Saturation ABG Base Excess Sodium Potassium Chloride Carbon Dioxide 19 L BUN 20 H Creatinine 0.5 L Glucose 103 H POC Glucose 135 H Lactic Acid Calcium 7.9 L AST Phosphorus Total Protein Albumin C-Reactive Protein Urine WBC (Auto) 01/28/20 01/28/20 01/28/20 08:50 11:10 11:51 WBC RBC Hgb Hct MCHC RDW Plt Count Lymph % (Auto) Lymph # Seg Neutrophils % Seg Neuts % (Manual) Lymphocytes % (Manual) Seg Neutrophils # Seg Neutrophils # Man Nucleated RBC % Lymphocytes # (Manual) Monocytes # (Manual) PT INR Heparin Anti-Xa Level 0.74 H POC ABG pO2 67.2 L ABG pH ABG Hemoglobin 9.3 L ABG Oxyhemoglobin ABG pO2 ABG HCO3 ABG O2 Saturation ABG Base Excess Sodium Potassium Chloride Carbon Dioxide BUN Creatinine Glucose POC Glucose 160 H Lactic Acid Calcium AST Phosphorus Total Protein Albumin C-Reactive Protein Urine WBC (Auto) 01/28/20 01/28/20 01/29/20 17:19 23:53 03:52 WBC RBC Hgb Hct MCHC RDW Plt Count Lymph % (Auto) Lymph # Seg Neutrophils % Seg Neuts % (Manual) Lymphocytes % (Manual) Seg Neutrophils # Seg Neutrophils # Man Nucleated RBC % Lymphocytes # (Manual) Monocytes # (Manual) PT INR Heparin Anti-Xa Level POC ABG pO2 ABG pH 7.510 H ABG Hemoglobin 7.3 L ABG Oxyhemoglobin ABG pO2 357.0 H ABG HCO3 19.6 L ABG O2 Saturation 99.6 H ABG Base Excess -2.9 L Sodium Potassium Chloride Carbon Dioxide BUN Creatinine Glucose POC Glucose 177 H 142 H Lactic Acid Calcium AST Phosphorus Total Protein Albumin C-Reactive Protein Urine WBC (Auto) 01/29/20 01/29/20 01/29/20 04:58 04:58 06:01 WBC 13.1 H RBC 2.75 L Hgb 8.6 L Hct 25.6 L MCHC RDW 17.7 H Plt Count Lymph % (Auto) Lymph # Seg Neutrophils % Seg Neuts % (Manual) 91.0 H Lymphocytes % (Manual) 6.0 L Seg Neutrophils # Seg Neutrophils # Man 11.9 H Nucleated RBC % 1.0 H Lymphocytes # (Manual) 0.8 L Monocytes # (Manual) PT INR Heparin Anti-Xa Level POC ABG pO2 ABG pH ABG Hemoglobin ABG Oxyhemoglobin ABG pO2 ABG HCO3 ABG O2 Saturation ABG Base Excess Sodium 148 H Potassium 3.5 L D Chloride 113.2 H Carbon Dioxide 21 L BUN 20 H Creatinine Glucose 137 H POC Glucose 167 H Lactic Acid Calcium 8.1 L AST Phosphorus Total Protein Albumin C-Reactive Protein Urine WBC (Auto) 01/29/20 01/29/20 01/29/20 11:45 17:52 23:49 WBC RBC Hgb Hct MCHC RDW Plt Count Lymph % (Auto) Lymph # Seg Neutrophils % Seg Neuts % (Manual) Lymphocytes % (Manual) Seg Neutrophils # Seg Neutrophils # Man Nucleated RBC % Lymphocytes # (Manual) Monocytes # (Manual) PT INR Heparin Anti-Xa Level POC ABG pO2 ABG pH ABG Hemoglobin ABG Oxyhemoglobin ABG pO2 ABG HCO3 ABG O2 Saturation ABG Base Excess Sodium Potassium Chloride Carbon Dioxide BUN Creatinine Glucose POC Glucose 185 H 226 H 141 H Lactic Acid Calcium AST Phosphorus Total Protein Albumin C-Reactive Protein Urine WBC (Auto) 01/29/20 01/30/20 01/30/20 Unknown 03:24 04:00 WBC RBC Hgb 7.8 L Hct 23.5 L MCHC RDW Plt Count Lymph % (Auto) Lymph # Seg Neutrophils % Seg Neuts % (Manual) Lymphocytes % (Manual) Seg Neutrophils # Seg Neutrophils # Man Nucleated RBC % Lymphocytes # (Manual) Monocytes # (Manual) PT INR Heparin Anti-Xa Level POC ABG pO2 ABG pH 7.485 H ABG Hemoglobin 6.7 L ABG Oxyhemoglobin ABG pO2 102.0 H ABG HCO3 ABG O2 Saturation ABG Base Excess Sodium Potassium Chloride Carbon Dioxide BUN Creatinine Glucose POC Glucose Lactic Acid Calcium AST Phosphorus Total Protein Albumin C-Reactive Protein 14.80 H Urine WBC (Auto) 01/30/20 01/30/20 01/30/20 05:50 11:15 17:07 WBC RBC Hgb Hct MCHC RDW Plt Count Lymph % (Auto) Lymph # Seg Neutrophils % Seg Neuts % (Manual) Lymphocytes % (Manual) Seg Neutrophils # Seg Neutrophils # Man Nucleated RBC % Lymphocytes # (Manual) Monocytes # (Manual) PT INR Heparin Anti-Xa Level POC ABG pO2 ABG pH ABG Hemoglobin ABG Oxyhemoglobin ABG pO2 ABG HCO3 ABG O2 Saturation ABG Base Excess Sodium Potassium Chloride Carbon Dioxide BUN Creatinine Glucose POC Glucose 122 H 207 H 124 H Lactic Acid Calcium AST Phosphorus Total Protein Albumin C-Reactive Protein Urine WBC (Auto) 01/30/20 01/31/20 01/31/20 17:08 00:10 04:52 WBC RBC Hgb Hct MCHC RDW Plt Count Lymph % (Auto) Lymph # Seg Neutrophils % Seg Neuts % (Manual) Lymphocytes % (Manual) Seg Neutrophils # Seg Neutrophils # Man Nucleated RBC % Lymphocytes # (Manual) Monocytes # (Manual) PT INR Heparin Anti-Xa Level POC ABG pO2 ABG pH 7.504 H 7.486 H ABG Hemoglobin 7.4 L 6.2 L ABG Oxyhemoglobin ABG pO2 169.2 H 121.7 H ABG HCO3 27.1 H ABG O2 Saturation 99.1 H ABG Base Excess 3.4 H Sodium Potassium Chloride Carbon Dioxide BUN Creatinine Glucose POC Glucose 191 H Lactic Acid Calcium AST Phosphorus Total Protein Albumin C-Reactive Protein Urine WBC (Auto) 01/31/20 01/31/20 01/31/20 05:37 11:59 12:40 WBC RBC 2.41 L Hgb 7.5 L Hct 22.3 L MCHC RDW 22.2 H Plt Count Lymph % (Auto) Lymph # Seg Neutrophils % Seg Neuts % (Manual) 94.0 H Lymphocytes % (Manual) 2.0 L Seg Neutrophils # Seg Neutrophils # Man 9.4 H Nucleated RBC % Lymphocytes # (Manual) 0.2 L Monocytes # (Manual) PT INR Heparin Anti-Xa Level POC ABG pO2 ABG pH ABG Hemoglobin ABG Oxyhemoglobin ABG pO2 ABG HCO3 ABG O2 Saturation ABG Base Excess Sodium Potassium Chloride Carbon Dioxide BUN Creatinine Glucose POC Glucose 175 H 220 H Lactic Acid Calcium AST Phosphorus Total Protein Albumin C-Reactive Protein Urine WBC (Auto) 01/31/20 01/31/20 01/31/20 12:40 14:40 18:18 WBC RBC Hgb Hct MCHC RDW Plt Count Lymph % (Auto) Lymph # Seg Neutrophils % Seg Neuts % (Manual) Lymphocytes % (Manual) Seg Neutrophils # Seg Neutrophils # Man Nucleated RBC % Lymphocytes # (Manual) Monocytes # (Manual) PT INR Heparin Anti-Xa Level POC ABG pO2 124.7 H ABG pH 7.542 H ABG Hemoglobin 7.8 L ABG Oxyhemoglobin ABG pO2 ABG HCO3 ABG O2 Saturation ABG Base Excess Sodium 151 H Potassium 2.1 L* D Chloride 108.9 H Carbon Dioxide BUN 22 H Creatinine Glucose 194 H POC Glucose 181 H Lactic Acid Calcium 8.1 L AST Phosphorus Total Protein 4.8 L Albumin 2.3 L C-Reactive Protein Urine WBC (Auto) 02/01/20 02/01/20 02/01/20 00:11 03:14 04:32 WBC 11.9 H RBC 2.47 L Hgb 7.6 L Hct 22.8 L MCHC RDW 22.7 H Plt Count Lymph % (Auto) Lymph # Seg Neutrophils % Seg Neuts % (Manual) 90.0 H Lymphocytes % (Manual) 5.0 L Seg Neutrophils # Seg Neutrophils # Man 10.7 H Nucleated RBC % Lymphocytes # (Manual) 0.6 L Monocytes # (Manual) PT INR Heparin Anti-Xa Level POC ABG pO2 ABG pH 7.564 H ABG Hemoglobin 7.6 L ABG Oxyhemoglobin ABG pO2 124.1 H ABG HCO3 29.6 H ABG O2 Saturation ABG Base Excess 7.0 H Sodium Potassium Chloride Carbon Dioxide BUN Creatinine Glucose POC Glucose 190 H Lactic Acid Calcium AST Phosphorus Total Protein Albumin C-Reactive Protein Urine WBC (Auto) 02/01/20 02/01/20 02/01/20 04:32 05:28 11:56 WBC RBC Hgb Hct MCHC RDW Plt Count Lymph % (Auto) Lymph # Seg Neutrophils % Seg Neuts % (Manual) Lymphocytes % (Manual) Seg Neutrophils # Seg Neutrophils # Man Nucleated RBC % Lymphocytes # (Manual) Monocytes # (Manual) PT INR Heparin Anti-Xa Level POC ABG pO2 ABG pH ABG Hemoglobin ABG Oxyhemoglobin ABG pO2 ABG HCO3 ABG O2 Saturation ABG Base Excess Sodium 149 H Potassium 2.6 L* D Chloride Carbon Dioxide 33 H BUN 23 H Creatinine 0.5 L Glucose 174 H POC Glucose 187 H 195 H Lactic Acid Calcium 8.0 L AST Phosphorus 1.60 L Total Protein Albumin C-Reactive Protein Urine WBC (Auto) 02/01/20 02/01/20 02/02/20 18:15 23:35 04:33 WBC RBC Hgb Hct MCHC RDW Plt Count Lymph % (Auto) Lymph # Seg Neutrophils % Seg Neuts % (Manual) Lymphocytes % (Manual) Seg Neutrophils # Seg Neutrophils # Man Nucleated RBC % Lymphocytes # (Manual) Monocytes # (Manual) PT INR Heparin Anti-Xa Level POC ABG pO2 ABG pH 7.549 H ABG Hemoglobin 9.8 L ABG Oxyhemoglobin ABG pO2 ABG HCO3 ABG O2 Saturation ABG Base Excess Sodium Potassium Chloride Carbon Dioxide BUN Creatinine Glucose POC Glucose 226 H 252 H Lactic Acid Calcium AST Phosphorus Total Protein Albumin C-Reactive Protein Urine WBC (Auto) 02/02/20 02/02/20 02/02/20 05:25 05:25 05:40 WBC 15.5 H RBC 2.43 L Hgb 7.6 L Hct 22.9 L MCHC RDW 23.6 H Plt Count Lymph % (Auto) Lymph # Seg Neutrophils % Seg Neuts % (Manual) 89.0 H Lymphocytes % (Manual) 3.0 L Seg Neutrophils # Seg Neutrophils # Man 13.8 H Nucleated RBC % Lymphocytes # (Manual) 0.5 L Monocytes # (Manual) 0.9 H PT INR Heparin Anti-Xa Level POC ABG pO2 ABG pH ABG Hemoglobin ABG Oxyhemoglobin ABG pO2 ABG HCO3 ABG O2 Saturation ABG Base Excess Sodium Potassium 2.6 L* Chloride Carbon Dioxide 33 H BUN 26 H Creatinine Glucose 175 H POC Glucose 181 H Lactic Acid Calcium 7.9 L AST Phosphorus Total Protein Albumin C-Reactive Protein Urine WBC (Auto) Allied health notes reviewed: nursing
--- NOTE | 2020-02-02 12:52 | Progress Note ---
Assessment and Plan Severe sepsis with shock. Left lung atelectasis. Left pleural effusion. Acute hypoxemic respiratory failure. Acute possibly on chronic encephalopathy. History of diabetes. Urinary tract infection. History of pulmonary embolism, diagnosed several months ago. Sacral decubitus ulcer. Dementia. Anemia that is normocytic. (AMS is improved; i have discussed with her and especially with cuff leak and need to change tube out i will give her a trial of extubation) - potassium and magnesium replaced - get ABG on SBT now - extubate if acceptable - robinul 0.2 mg IV X 1 re: secretions - begin scheduled scopolamine - continue care as below otherwise; - continue stress dose steroids taper (75 mg q8h X 1 day; 50 mg q8h, q12h then 25mg bid X 1 day then stop) - repeat procalcitonin as necessary to aid clinical decision making while on systemic steroids - follow BAL studies - keep set TV at 350 ml's re: alkalosis - continue free water at 200 mls q4h - continue to wean supplemental oxygen for target O2 sat's > 92% acutely - VAP bundle addressed - continue lung protective strategies - continue bronchodilators with pulmonary hygiene per RT - wean per pulmonary driven protocols otherwise - continue accuchecks with glycemic control per SSI (While critically ill target blood glucose of 140-180 mg/dL; avoid hypoglycemia) - sedation prn for target RASS 0 to -1 - avoid nephrotoxins, renally dose all medications - continue to avoid benzodiazepine's, reduce the possibility of delirium - complete AB's per ID rec's - prn analgesia per CPOT score - Maintenance of sleep-wake cycle, avoid delirium - continue enteral nutritional support at goal rate as tolerated - G.I. & VTE prophylaxis with famotidine and heparin - PT/OT/ROM exercises - continue mobility protocols for pressure ulcer prophylaxis - Monitor hemodynamics closely - continue other care per attending / other consultants - discharge planning ongoing concurrently .... Re-evaluate in am & prn CONDITION: CRITICAL PROGNOSIS: GUARDED CODE STATUS: FULL CODE The high probability of a clinically significant, sudden or life-threatening deterioration of the [respiratory, cardiovascular & neurologic] system(s) required my full and direct attention, intervention and personal management. The aggregate critical care time was [33] minutes without overlap. Time includes spent on; [x] Data Review and interpretation [x] Patient assessment and monitoring of vital signs [x] Documentation [x] Medication orders and management Subjective Date of service: 02/02/20 Principal diagnosis: Septic Shock; S/P Cardiac Arrest; Ac. hypoxemic resp failure; UTI Interval history: Patient is seen today for: Severe sepsis with shock; S/P Cardiac Arrest; L. lung atelectasis / L. pleural effusion; Acute hypoxemic respiratory failure; Acute possibly on chronic encephalopathy; DM II; UTI; VTE Seen and examined at bedside; 24hour events reviewed; nursing and respiratory care staff consulted; no adverse overnight events reported to me; resting peacefully in bed; remains on MVS; her ETT cuff is blown but she has a good le ak; she is also meeting extubation criteria otherwise and she is more alert overall Objective Vital Signs - 12hr 02/02/20 02/02/20 02/02/20 01:00 01:15 01:30 Temperature Pulse Rate 73 86 79 Pulse Rate [ From Monitor] Respiratory 18 18 19 Rate Blood Pressure 120/57 114/64 114/63 O2 Sat by Pulse 100 100 100 Oximetry 02/02/20 02/02/20 02/02/20 01:45 02:00 02:15 Temperature Pulse Rate 84 81 78 Pulse Rate [ From Monitor] Respiratory 26 H 17 16 Rate Blood Pressure 114/64 118/64 117/67 O2 Sat by Pulse 100 100 100 Oximetry 02/02/20 02/02/20 02/02/20 02:30 02:45 02:47 Temperature 98.8 F Pulse Rate 81 96 H Pulse Rate [ From Monitor] Respiratory 15 11 L Rate Blood Pressure 123/59 118/64 O2 Sat by Pulse 100 100 Oximetry 02/02/20 02/02/20 02/02/20 03:00 03:15 03:30 Temperature Pulse Rate 90 90 88 Pulse Rate [ From Monitor] Respiratory 18 22 20 Rate Blood Pressure 111/60 111/60 123/62 O2 Sat by Pulse 100 100 100 Oximetry 02/02/20 02/02/20 02/02/20 03:45 04:00 04:09 Temperature Pulse Rate 74 86 81 Pulse Rate [ 86 From Monitor] Respiratory 17 19 Rate Blood Pressure 110/55 132/68 132/68 O2 Sat by Pulse 100 100 100 Oximetry 02/02/20 02/02/20 02/02/20 04:15 04:30 04:45 Temperature Pulse Rate 92 H 77 74 Pulse Rate [ From Monitor] Respiratory 19 14 15 Rate Blood Pressure 138/70 123/60 119/58 O2 Sat by Pulse 100 100 100 Oximetry 02/02/20 02/02/20 02/02/20 05:00 05:15 05:30 Temperature Pulse Rate 80 85 76 Pulse Rate [ From Monitor] Respiratory 15 20 16 Rate Blood Pressure 121/61 117/61 121/63 O2 Sat by Pulse 100 100 100 Oximetry 02/02/20 02/02/20 02/02/20 05:45 06:00 06:15 Temperature Pulse Rate 76 74 71 Pulse Rate [ From Monitor] Respiratory 17 15 15 Rate Blood Pressure 123/63 123/59 118/57 O2 Sat by Pulse 100 100 100 Oximetry 02/02/20 02/02/20 02/02/20 06:30 06:45 07:00 Temperature Pulse Rate 87 89 82 Pulse Rate [ From Monitor] Respiratory 14 19 19 Rate Blood Pressure 133/73 133/65 124/59 O2 Sat by Pulse 100 100 100 Oximetry 02/02/20 02/02/20 02/02/20 07:15 07:20 07:30 Temperature Pulse Rate 79 86 85 Pulse Rate [ From Monitor] Respiratory 16 8 L 18 Rate Blood Pressure 122/61 124/65 124/65 O2 Sat by Pulse 100 100 100 Oximetry 02/02/20 02/02/20 02/02/20 07:45 08:00 08:15 Temperature Pulse Rate 94 H 83 77 Pulse Rate [ 94 H From Monitor] Respiratory 21 21 21 Rate Blood Pressure 104/75 117/75 118/58 O2 Sat by Pulse 100 97 100 Oximetry 02/02/20 02/02/20 02/02/20 08:31 08:45 09:00 Temperature Pulse Rate 93 H 77 79 Pulse Rate [ From Monitor] Respiratory 17 12 18 Rate Blood Pressure 138/77 119/59 123/61 O2 Sat by Pulse 100 100 100 Oximetry 02/02/20 02/02/20 02/02/20 09:15 09:30 09:45 Temperature Pulse Rate 70 78 79 Pulse Rate [ From Monitor] Respiratory 11 L 12 15 Rate Blood Pressure 120/54 129/60 112/60 O2 Sat by Pulse 100 100 100 Oximetry 02/02/20 02/02/20 02/02/20 10:00 10:15 10:30 Temperature Pulse Rate 70 89 71 Pulse Rate [ From Monitor] Respiratory 14 15 14 Rate Blood Pressure 110/55 110/55 117/58 O2 Sat by Pulse 100 100 100 Oximetry 02/02/20 02/02/20 02/02/20 10:45 11:00 11:15 Temperature Pulse Rate 88 76 74 Pulse Rate [ From Monitor] Respiratory 14 20 16 Rate Blood Pressure 112/61 128/67 111/48 O2 Sat by Pulse 100 100 100 Oximetry 02/02/20 11:29 Temperature Pulse Rate 88 Pulse Rate [ From Monitor] Respiratory 18 Rate Blood Pressure 108/54 O2 Sat by Pulse 100 Oximetry Constitutional: no acute distress, alert, other (elderly chronically ill looking female with normal respiratory effort at rest on MVS) Eyes: non-icteric ENT: oropharynx moist, other (ETT 23 cm FLORENCIO) Neck: supple, no lymphadenopathy Effort: normal Ascultation: Bilateral: clear, diminished breath sounds Percussion: Bilateral: not dull Cardiovascular: regular rate and rhythm, other (S1,S2) Gastrointestinal: normoactive bowel sounds, soft, non-tender, other (PEG in place) Integumentary: decubitus ulcer Extremities: no cyanosis, no edema, pulses normal, no ischemia or petechiae Neurologic: pupils equal and round, unable to assess Psychiatric: other (Unable to assess secondary to mental status) CBC and BMP: 02/02/20 05:25 02/02/20 05:25 ABG, PT/INR, D-dimer: ABG ABG pH 7.549 (7.320-7.450) H 02/02/20 04:33 POC ABG pCO2 35.5 mmHg (32.0-48.0) 02/02/20 04:33 ABG pCO2 33.6 mm Hg 02/01/20 03:14 POC ABG pO2 107.3 mmHg (83-108) 02/02/20 04:33 ABG pO2 124.1 mm Hg (80.0-90.0) H 02/01/20 03:14 POC ABG HCO3 30.3 02/02/20 04:33 ABG O2 Saturation 98.7 % (95.0-99.0) 02/01/20 03:14 PT/INR, D-dimer PT 14.4 Sec. (12.2-14.9) 02/02/20 05:25 INR 1.11 (0.87-1.13) 02/02/20 05:25 Abnormal lab findings: Abnormal Labs 01/08/20 01/08/20 01/08/20 16:29 16:29 16:29 WBC 13.5 H RBC Hgb Hct MCHC RDW 15.5 H Plt Count Lymph % (Auto) Lymph # Seg Neutrophils % Seg Neuts % (Manual) 85.0 H Lymphocytes % (Manual) 11.0 L Seg Neutrophils # Seg Neutrophils # Man 11.5 H Nucleated RBC % Lymphocytes # (Manual) Monocytes # (Manual) PT INR Heparin Anti-Xa Level POC ABG pO2 ABG pH ABG Hemoglobin ABG Oxyhemoglobin ABG pO2 ABG HCO3 ABG O2 Saturation ABG Base Excess Sodium 161 H* Potassium Chloride 125.5 H Carbon Dioxide 20 L BUN 30 H Creatinine Glucose 115 H POC Glucose Lactic Acid 2.20 H* Calcium 7.9 L AST 48 H Phosphorus Total Protein Albumin 2.5 L C-Reactive Protein Urine WBC (Auto) 01/08/20 01/08/20 01/08/20 19:02 23:30 Unknown WBC RBC Hgb Hct MCHC RDW Plt Count Lymph % (Auto) Lymph # Seg Neutrophils % Seg Neuts % (Manual) Lymphocytes % (Manual) Seg Neutrophils # Seg Neutrophils # Man Nucleated RBC % Lymphocytes # (Manual) Monocytes # (Manual) PT INR Heparin Anti-Xa Level POC ABG pO2 ABG pH ABG Hemoglobin ABG Oxyhemoglobin ABG pO2 ABG HCO3 ABG O2 Saturation ABG Base Excess Sodium Potassium Chloride Carbon Dioxide BUN Creatinine Glucose POC Glucose Lactic Acid 2.10 H* 2.50 H* Calcium AST Phosphorus Total Protein Albumin C-Reactive Protein Urine WBC (Auto) 11.0 H 01/09/20 01/09/20 01/09/20 00:19 00:54 05:52 WBC 13.5 H RBC 3.02 L Hgb 9.0 L D Hct 27.4 L D MCHC RDW Plt Count Lymph % (Auto) 9.1 L Lymph # Seg Neutrophils % 87.6 H Seg Neuts % (Manual) Lymphocytes % (Manual) Seg Neutrophils # 11.8 H Seg Neutrophils # Man Nucleated RBC % Lymphocytes # (Manual) Monocytes # (Manual) PT INR Heparin Anti-Xa Level POC ABG pO2 ABG pH ABG Hemoglobin ABG Oxyhemoglobin ABG pO2 ABG HCO3 ABG O2 Saturation ABG Base Excess Sodium Potassium Chloride Carbon Dioxide BUN Creatinine Glucose POC Glucose 118 H 116 H Lactic Acid Calcium AST Phosphorus Total Protein Albumin C-Reactive Protein Urine WBC (Auto) 01/09/20 01/09/20 01/09/20 05:52 05:52 13:03 WBC RBC Hgb Hct MCHC RDW Plt Count Lymph % (Auto) Lymph # Seg Neutrophils % Seg Neuts % (Manual) Lymphocytes % (Manual) Seg Neutrophils # Seg Neutrophils # Man Nucleated RBC % Lymphocytes # (Manual) Monocytes # (Manual) PT 17.1 H INR 1.36 H Heparin Anti-Xa Level POC ABG pO2 ABG pH ABG Hemoglobin ABG Oxyhemoglobin ABG pO2 ABG HCO3 ABG O2 Saturation ABG Base Excess Sodium 162 H* Potassium 3.0 L D Chloride 128.3 H Carbon Dioxide BUN 23 H Creatinine Glucose POC Glucose 55 L Lactic Acid Calcium 7.6 L AST Phosphorus Total Protein Albumin C-Reactive Protein Urine WBC (Auto) 01/09/20 01/09/20 01/09/20 21:22 21:50 22:28 WBC RBC Hgb Hct MCHC RDW Plt Count Lymph % (Auto) Lymph # Seg Neutrophils % Seg Neuts % (Manual) Lymphocytes % (Manual) Seg Neutrophils # Seg Neutrophils # Man Nucleated RBC % Lymphocytes # (Manual) Monocytes # (Manual) PT INR Heparin Anti-Xa Level POC ABG pO2 ABG pH ABG Hemoglobin ABG Oxyhemoglobin ABG pO2 ABG HCO3 ABG O2 Saturation ABG Base Excess Sodium 159 H Potassium 5.1 H D Chloride 128.5 H Carbon Dioxide 16 L BUN 23 H Creatinine Glucose 51 L POC Glucose 52 L 106 H Lactic Acid Calcium 8.2 L AST Phosphorus Total Protein Albumin C-Reactive Protein Urine WBC (Auto) 01/10/20 01/10/20 01/10/20 05:23 09:11 10:10 WBC 13.4 H RBC Hgb Hct MCHC RDW Plt Count Lymph % (Auto) 7.2 L Lymph # 1.0 L Seg Neutrophils % 90.0 H Seg Neuts % (Manual) Lymphocytes % (Manual) Seg Neutrophils # 12.0 H Seg Neutrophils # Man Nucleated RBC % Lymphocytes # (Manual) Monocytes # (Manual) PT INR Heparin Anti-Xa Level POC ABG pO2 ABG pH ABG Hemoglobin ABG Oxyhemoglobin ABG pO2 ABG HCO3 ABG O2 Saturation ABG Base Excess Sodium 155 H Potassium Chloride 122.8 H Carbon Dioxide 21 L BUN 19 H Creatinine Glucose POC Glucose 120 H Lactic Acid Calcium AST Phosphorus Total Protein Albumin C-Reactive Protein Urine WBC (Auto) 01/10/20 01/10/20 01/10/20 11:47 11:57 17:09 WBC RBC Hgb Hct MCHC RDW Plt Count Lymph % (Auto) Lymph # Seg Neutrophils % Seg Neuts % (Manual) Lymphocytes % (Manual) Seg Neutrophils # Seg Neutrophils # Man Nucleated RBC % Lymphocytes # (Manual) Monocytes # (Manual) PT INR Heparin Anti-Xa Level POC ABG pO2 ABG pH ABG Hemoglobin ABG Oxyhemoglobin ABG pO2 ABG HCO3 ABG O2 Saturation ABG Base Excess Sodium 153 H Potassium Chloride 118.3 H Carbon Dioxide 20 L BUN 19 H Creatinine Glucose 113 H POC Glucose 142 H 125 H Lactic Acid Calcium AST Phosphorus Total Protein Albumin C-Reactive Protein Urine WBC (Auto) 01/10/20 01/10/20 01/11/20 20:27 22:00 00:45 WBC RBC Hgb Hct MCHC RDW Plt Count Lymph % (Auto) Lymph # Seg Neutrophils % Seg Neuts % (Manual) Lymphocytes % (Manual) Seg Neutrophils # Seg Neutrophils # Man Nucleated RBC % Lymphocytes # (Manual) Monocytes # (Manual) PT INR Heparin Anti-Xa Level POC ABG pO2 ABG pH ABG Hemoglobin ABG Oxyhemoglobin ABG pO2 ABG HCO3 ABG O2 Saturation ABG Base Excess Sodium 153 H 154 H Potassium 3.3 L 3.2 L Chloride 117.0 H 118.9 H Carbon Dioxide 20 L BUN Creatinine Glucose POC Glucose 136 H Lactic Acid Calcium 8.3 L 8.0 L AST Phosphorus Total Protein Albumin C-Reactive Protein Urine WBC (Auto) 01/11/20 01/11/20 01/11/20 07:06 08:03 11:54 WBC RBC Hgb Hct MCHC RDW Plt Count Lymph % (Auto) Lymph # Seg Neutrophils % Seg Neuts % (Manual) Lymphocytes % (Manual) Seg Neutrophils # Seg Neutrophils # Man Nucleated RBC % Lymphocytes # (Manual) Monocytes # (Manual) PT INR Heparin Anti-Xa Level POC ABG pO2 ABG pH ABG Hemoglobin ABG Oxyhemoglobin ABG pO2 ABG HCO3 ABG O2 Saturation ABG Base Excess Sodium 151 H Potassium Chloride 118.7 H Carbon Dioxide 21 L BUN Creatinine Glucose 107 H POC Glucose 118 H 164 H Lactic Acid Calcium 8.3 L AST Phosphorus Total Protein Albumin C-Reactive Protein Urine WBC (Auto) 01/11/20 01/12/20 01/12/20 16:28 00:19 05:40 WBC RBC Hgb Hct MCHC RDW Plt Count Lymph % (Auto) Lymph # Seg Neutrophils % Seg Neuts % (Manual) Lymphocytes % (Manual) Seg Neutrophils # Seg Neutrophils # Man Nucleated RBC % Lymphocytes # (Manual) Monocytes # (Manual) PT INR Heparin Anti-Xa Level POC ABG pO2 ABG pH ABG Hemoglobin ABG Oxyhemoglobin ABG pO2 ABG HCO3 ABG O2 Saturation ABG Base Excess Sodium 148 H Potassium Chloride 111.6 H Carbon Dioxide 19 L BUN Creatinine Glucose 128 H POC Glucose 132 H 179 H Lactic Acid Calcium 8.2 L AST Phosphorus Total Protein Albumin C-Reactive Protein Urine WBC (Auto) 01/12/20 01/12/20 01/12/20 06:17 11:37 17:21 WBC RBC Hgb Hct MCHC RDW Plt Count Lymph % (Auto) Lymph # Seg Neutrophils % Seg Neuts % (Manual) Lymphocytes % (Manual) Seg Neutrophils # Seg Neutrophils # Man Nucleated RBC % Lymphocytes # (Manual) Monocytes # (Manual) PT INR Heparin Anti-Xa Level POC ABG pO2 ABG pH ABG Hemoglobin ABG Oxyhemoglobin ABG pO2 ABG HCO3 ABG O2 Saturation ABG Base Excess Sodium Potassium Chloride Carbon Dioxide BUN Creatinine Glucose POC Glucose 140 H 142 H 133 H Lactic Acid Calcium AST Phosphorus Total Protein Albumin C-Reactive Protein Urine WBC (Auto) 01/12/20 01/13/20 01/13/20 23:14 05:26 07:00 WBC RBC Hgb Hct MCHC RDW Plt Count Lymph % (Auto) Lymph # Seg Neutrophils % Seg Neuts % (Manual) Lymphocytes % (Manual) Seg Neutrophils # Seg Neutrophils # Man Nucleated RBC % Lymphocytes # (Manual) Monocytes # (Manual) PT INR Heparin Anti-Xa Level POC ABG pO2 ABG pH ABG Hemoglobin ABG Oxyhemoglobin ABG pO2 ABG HCO3 ABG O2 Saturation ABG Base Excess Sodium Potassium Chloride 110.0 H Carbon Dioxide BUN Creatinine Glucose 139 H POC Glucose 135 H 162 H Lactic Acid Calcium 7.8 L AST Phosphorus Total Protein Albumin C-Reactive Protein Urine WBC (Auto) 01/13/20 01/13/20 01/13/20 12:14 17:52 21:40 WBC RBC Hgb Hct MCHC RDW Plt Count Lymph % (Auto) Lymph # Seg Neutrophils % Seg Neuts % (Manual) Lymphocytes % (Manual) Seg Neutrophils # Seg Neutrophils # Man Nucleated RBC % Lymphocytes # (Manual) Monocytes # (Manual) PT INR Heparin Anti-Xa Level POC ABG pO2 ABG pH ABG Hemoglobin ABG Oxyhemoglobin ABG pO2 ABG HCO3 ABG O2 Saturation ABG Base Excess Sodium Potassium Chloride Carbon Dioxide BUN Creatinine Glucose POC Glucose 205 H 172 H 186 H Lactic Acid Calcium AST Phosphorus Total Protein Albumin C-Reactive Protein Urine WBC (Auto) 01/14/20 01/14/20 01/14/20 04:28 11:01 11:01 WBC 14.8 H RBC 3.20 L Hgb 9.5 L Hct 28.0 L MCHC RDW Plt Count Lymph % (Auto) Lymph # Seg Neutrophils % Seg Neuts % (Manual) Lymphocytes % (Manual) Seg Neutrophils # Seg Neutrophils # Man Nucleated RBC % Lymphocytes # (Manual) Monocytes # (Manual) PT INR Heparin Anti-Xa Level POC ABG pO2 ABG pH ABG Hemoglobin ABG Oxyhemoglobin ABG pO2 ABG HCO3 ABG O2 Saturation ABG Base Excess Sodium Potassium 3.2 L Chloride Carbon Dioxide BUN Creatinine 0.4 L Glucose POC Glucose 115 H Lactic Acid Calcium 8.0 L AST Phosphorus Total Protein Albumin C-Reactive Protein Urine WBC (Auto) 01/14/20 01/14/20 01/14/20 11:01 16:33 22:32 WBC RBC Hgb Hct MCHC RDW Plt Count Lymph % (Auto) Lymph # Seg Neutrophils % Seg Neuts % (Manual) Lymphocytes % (Manual) Seg Neutrophils # Seg Neutrophils # Man Nucleated RBC % Lymphocytes # (Manual) Monocytes # (Manual) PT 15.8 H INR 1.23 H Heparin Anti-Xa Level POC ABG pO2 ABG pH ABG Hemoglobin ABG Oxyhemoglobin ABG pO2 ABG HCO3 ABG O2 Saturation ABG Base Excess Sodium Potassium Chloride Carbon Dioxide BUN Creatinine Glucose POC Glucose 58 L 188 H Lactic Acid Calcium AST Phosphorus Total Protein Albumin C-Reactive Protein Urine WBC (Auto) 01/15/20 01/15/20 01/15/20 05:35 06:19 17:17 WBC RBC Hgb Hct MCHC RDW Plt Count Lymph % (Auto) Lymph # Seg Neutrophils % Seg Neuts % (Manual) Lymphocytes % (Manual) Seg Neutrophils # Seg Neutrophils # Man Nucleated RBC % Lymphocytes # (Manual) Monocytes # (Manual) PT INR Heparin Anti-Xa Level POC ABG pO2 ABG pH ABG Hemoglobin ABG Oxyhemoglobin ABG pO2 ABG HCO3 ABG O2 Saturation ABG Base Excess Sodium Potassium Chloride Carbon Dioxide BUN Creatinine 0.5 L Glucose 104 H POC Glucose 106 H 183 H Lactic Acid Calcium 7.8 L AST Phosphorus Total Protein Albumin C-Reactive Protein Urine WBC (Auto) 01/15/20 01/16/20 01/16/20 22:29 05:35 05:59 WBC 14.7 H RBC 3.04 L Hgb 9.0 L Hct 27.0 L MCHC RDW Plt Count Lymph % (Auto) 9.1 L Lymph # Seg Neutrophils % 87.3 H Seg Neuts % (Manual) Lymphocytes % (Manual) Seg Neutrophils # 12.9 H Seg Neutrophils # Man Nucleated RBC % Lymphocytes # (Manual) Monocytes # (Manual) PT INR Heparin Anti-Xa Level POC ABG pO2 ABG pH ABG Hemoglobin ABG Oxyhemoglobin ABG pO2 ABG HCO3 ABG O2 Saturation ABG Base Excess Sodium Potassium Chloride Carbon Dioxide BUN Creatinine Glucose POC Glucose 228 H 130 H Lactic Acid Calcium AST Phosphorus Total Protein Albumin C-Reactive Protein Urine WBC (Auto) 01/16/20 01/16/20 01/16/20 09:52 12:49 17:30 WBC RBC Hgb Hct MCHC RDW Plt Count Lymph % (Auto) Lymph # Seg Neutrophils % Seg Neuts % (Manual) Lymphocytes % (Manual) Seg Neutrophils # Seg Neutrophils # Man Nucleated RBC % Lymphocytes # (Manual) Monocytes # (Manual) PT INR Heparin Anti-Xa Level POC ABG pO2 ABG pH ABG Hemoglobin ABG Oxyhemoglobin ABG pO2 ABG HCO3 ABG O2 Saturation ABG Base Excess Sodium Potassium Chloride Carbon Dioxide BUN Creatinine Glucose POC Glucose 122 H 142 H 192 H Lactic Acid Calcium AST Phosphorus Total Protein Albumin C-Reactive Protein Urine WBC (Auto) 01/16/20 01/17/20 01/17/20 23:01 08:36 08:36 WBC 12.7 H RBC 2.98 L Hgb 8.9 L Hct 26.4 L MCHC RDW Plt Count Lymph % (Auto) 8.8 L Lymph # 1.1 L Seg Neutrophils % 86.7 H Seg Neuts % (Manual) Lymphocytes % (Manual) Seg Neutrophils # 11.0 H Seg Neutrophils # Man Nucleated RBC % Lymphocytes # (Manual) Monocytes # (Manual) PT INR Heparin Anti-Xa Level POC ABG pO2 ABG pH ABG Hemoglobin ABG Oxyhemoglobin ABG pO2 ABG HCO3 ABG O2 Saturation ABG Base Excess Sodium Potassium 3.3 L D Chloride Carbon Dioxide BUN Creatinine 0.4 L Glucose POC Glucose 141 H Lactic Acid Calcium 8.1 L AST Phosphorus Total Protein 4.6 L Albumin 1.6 L C-Reactive Protein Urine WBC (Auto) 01/17/20 01/17/20 01/18/20 11:43 23:56 06:27 WBC RBC Hgb Hct MCHC RDW Plt Count Lymph % (Auto) Lymph # Seg Neutrophils % Seg Neuts % (Manual) Lymphocytes % (Manual) Seg Neutrophils # Seg Neutrophils # Man Nucleated RBC % Lymphocytes # (Manual) Monocytes # (Manual) PT INR Heparin Anti-Xa Level POC ABG pO2 ABG pH ABG Hemoglobin ABG Oxyhemoglobin ABG pO2 ABG HCO3 ABG O2 Saturation ABG Base Excess Sodium Potassium Chloride Carbon Dioxide BUN Creatinine Glucose POC Glucose 137 H 215 H 122 H Lactic Acid Calcium AST Phosphorus Total Protein Albumin C-Reactive Protein Urine WBC (Auto) 01/18/20 01/18/20 01/18/20 07:31 07:31 11:39 WBC 12.1 H RBC 3.23 L Hgb 9.7 L Hct 28.7 L MCHC RDW Plt Count Lymph % (Auto) 9.2 L Lymph # 1.1 L Seg Neutrophils % 85.0 H Seg Neuts % (Manual) Lymphocytes % (Manual) Seg Neutrophils # 10.3 H Seg Neutrophils # Man Nucleated RBC % Lymphocytes # (Manual) Monocytes # (Manual) PT INR Heparin Anti-Xa Level POC ABG pO2 ABG pH ABG Hemoglobin ABG Oxyhemoglobin ABG pO2 ABG HCO3 ABG O2 Saturation ABG Base Excess Sodium Potassium Chloride Carbon Dioxide BUN Creatinine 0.4 L Glucose 108 H POC Glucose 172 H Lactic Acid Calcium AST Phosphorus Total Protein 5.3 L Albumin 2.1 L C-Reactive Protein Urine WBC (Auto) 01/18/20 01/19/20 01/19/20 18:22 00:15 11:30 WBC RBC Hgb Hct MCHC RDW Plt Count Lymph % (Auto) Lymph # Seg Neutrophils % Seg Neuts % (Manual) Lymphocytes % (Manual) Seg Neutrophils # Seg Neutrophils # Man Nucleated RBC % Lymphocytes # (Manual) Monocytes # (Manual) PT INR Heparin Anti-Xa Level POC ABG pO2 ABG pH ABG Hemoglobin ABG Oxyhemoglobin ABG pO2 ABG HCO3 ABG O2 Saturation ABG Base Excess Sodium Potassium Chloride Carbon Dioxide BUN Creatinine Glucose POC Glucose 119 H 135 H 163 H Lactic Acid Calcium AST Phosphorus Total Protein Albumin C-Reactive Protein Urine WBC (Auto) 01/19/20 01/19/20 01/20/20 17:44 22:59 03:44 WBC 11.1 H RBC 2.77 L Hgb 8.4 L Hct 25.0 L MCHC RDW Plt Count Lymph % (Auto) Lymph # Seg Neutrophils % 74.6 H Seg Neuts % (Manual) Lymphocytes % (Manual) Seg Neutrophils # 8.3 H Seg Neutrophils # Man Nucleated RBC % Lymphocytes # (Manual) Monocytes # (Manual) PT INR Heparin Anti-Xa Level POC ABG pO2 ABG pH ABG Hemoglobin ABG Oxyhemoglobin ABG pO2 ABG HCO3 ABG O2 Saturation ABG Base Excess Sodium Potassium Chloride Carbon Dioxide BUN Creatinine Glucose POC Glucose 161 H 182 H Lactic Acid Calcium AST Phosphorus Total Protein Albumin C-Reactive Protein Urine WBC (Auto) 01/20/20 01/21/20 01/21/20 03:44 00:07 05:51 WBC RBC 2.84 L Hgb 8.6 L Hct 25.5 L MCHC RDW Plt Count 463 H Lymph % (Auto) Lymph # Seg Neutrophils % 76.9 H Seg Neuts % (Manual) Lymphocytes % (Manual) Seg Neutrophils # 7.8 H Seg Neutrophils # Man Nucleated RBC % Lymphocytes # (Manual) Monocytes # (Manual) PT INR Heparin Anti-Xa Level POC ABG pO2 ABG pH ABG Hemoglobin ABG Oxyhemoglobin ABG pO2 ABG HCO3 ABG O2 Saturation ABG Base Excess Sodium Potassium Chloride Carbon Dioxide BUN Creatinine 0.4 L Glucose POC Glucose 68 L Lactic Acid Calcium 7.9 L AST Phosphorus Total Protein 4.7 L Albumin 1.9 L C-Reactive Protein Urine WBC (Auto) 01/21/20 01/21/20 01/21/20 05:51 05:58 11:25 WBC RBC Hgb Hct MCHC RDW Plt Count Lymph % (Auto) Lymph # Seg Neutrophils % Seg Neuts % (Manual) Lymphocytes % (Manual) Seg Neutrophils # Seg Neutrophils # Man Nucleated RBC % Lymphocytes # (Manual) Monocytes # (Manual) PT INR Heparin Anti-Xa Level POC ABG pO2 ABG pH ABG Hemoglobin ABG Oxyhemoglobin ABG pO2 ABG HCO3 ABG O2 Saturation ABG Base Excess Sodium Potassium Chloride Carbon Dioxide 20 L BUN Creatinine 0.5 L Glucose 130 H POC Glucose 185 H 163 H Lactic Acid Calcium 7.6 L AST Phosphorus Total Protein 5.0 L Albumin 1.9 L C-Reactive Protein Urine WBC (Auto) 01/21/20 01/21/20 01/22/20 16:22 21:17 01:28 WBC RBC 2.60 L Hgb 8.0 L Hct 23.3 L MCHC RDW Plt Count Lymph % (Auto) Lymph # Seg Neutrophils % 74.8 H Seg Neuts % (Manual) Lymphocytes % (Manual) Seg Neutrophils # Seg Neutrophils # Man Nucleated RBC % Lymphocytes # (Manual) Monocytes # (Manual) PT INR Heparin Anti-Xa Level POC ABG pO2 ABG pH ABG Hemoglobin ABG Oxyhemoglobin ABG pO2 ABG HCO3 ABG O2 Saturation ABG Base Excess Sodium Potassium Chloride Carbon Dioxide BUN Creatinine Glucose POC Glucose 177 H 67 L Lactic Acid Calcium AST Phosphorus Total Protein Albumin C-Reactive Protein Urine WBC (Auto) 01/22/20 01/22/20 01/22/20 01:28 01:28 12:06 WBC RBC Hgb Hct MCHC RDW Plt Count Lymph % (Auto) Lymph # Seg Neutrophils % Seg Neuts % (Manual) Lymphocytes % (Manual) Seg Neutrophils # Seg Neutrophils # Man Nucleated RBC % Lymphocytes # (Manual) Monocytes # (Manual) PT INR Heparin Anti-Xa Level POC ABG pO2 ABG pH ABG Hemoglobin ABG Oxyhemoglobin ABG pO2 ABG HCO3 ABG O2 Saturation ABG Base Excess Sodium Potassium Chloride 107.6 H Carbon Dioxide BUN Creatinine 0.4 L Glucose 152 H POC Glucose 203 H 140 H Lactic Acid Calcium 7.5 L AST Phosphorus Total Protein 4.0 L Albumin 2.0 L C-Reactive Protein Urine WBC (Auto) 01/22/20 01/22/20 01/23/20 16:24 22:55 06:10 WBC RBC 2.68 L Hgb 8.6 L Hct 24.1 L MCHC 36 H RDW Plt Count Lymph % (Auto) Lymph # Seg Neutrophils % Seg Neuts % (Manual) 71.0 H Lymphocytes % (Manual) Seg Neutrophils # Seg Neutrophils # Man Nucleated RBC % Lymphocytes # (Manual) Monocytes # (Manual) PT INR Heparin Anti-Xa Level POC ABG pO2 ABG pH ABG Hemoglobin ABG Oxyhemoglobin ABG pO2 ABG HCO3 ABG O2 Saturation ABG Base Excess Sodium Potassium Chloride Carbon Dioxide BUN Creatinine Glucose POC Glucose 205 H 196 H Lactic Acid Calcium AST Phosphorus Total Protein Albumin C-Reactive Protein Urine WBC (Auto) 01/23/20 01/23/20 01/23/20 06:10 07:35 11:59 WBC RBC Hgb Hct MCHC RDW Plt Count Lymph % (Auto) Lymph # Seg Neutrophils % Seg Neuts % (Manual) Lymphocytes % (Manual) Seg Neutrophils # Seg Neutrophils # Man Nucleated RBC % Lymphocytes # (Manual) Monocytes # (Manual) PT INR Heparin Anti-Xa Level POC ABG pO2 ABG pH ABG Hemoglobin ABG Oxyhemoglobin ABG pO2 ABG HCO3 ABG O2 Saturation ABG Base Excess Sodium Potassium Chloride 108.8 H Carbon Dioxide BUN Creatinine 0.4 L Glucose 105 H POC Glucose 111 H 123 H Lactic Acid Calcium 8.0 L AST Phosphorus Total Protein 4.9 L D Albumin 2.0 L C-Reactive Protein Urine WBC (Auto) 01/23/20 01/24/20 01/24/20 22:45 11:24 16:41 WBC RBC Hgb Hct MCHC RDW Plt Count Lymph % (Auto) Lymph # Seg Neutrophils % Seg Neuts % (Manual) Lymphocytes % (Manual) Seg Neutrophils # Seg Neutrophils # Man Nucleated RBC % Lymphocytes # (Manual) Monocytes # (Manual) PT INR Heparin Anti-Xa Level POC ABG pO2 ABG pH ABG Hemoglobin ABG Oxyhemoglobin ABG pO2 ABG HCO3 ABG O2 Saturation ABG Base Excess Sodium Potassium Chloride Carbon Dioxide BUN Creatinine Glucose POC Glucose 180 H 182 H 177 H Lactic Acid Calcium AST Phosphorus Total Protein Albumin C-Reactive Protein Urine WBC (Auto) 01/24/20 01/25/20 01/25/20 23:11 07:12 11:35 WBC RBC Hgb Hct MCHC RDW Plt Count Lymph % (Auto) Lymph # Seg Neutrophils % Seg Neuts % (Manual) Lymphocytes % (Manual) Seg Neutrophils # Seg Neutrophils # Man Nucleated RBC % Lymphocytes # (Manual) Monocytes # (Manual) PT INR Heparin Anti-Xa Level POC ABG pO2 ABG pH ABG Hemoglobin ABG Oxyhemoglobin ABG pO2 ABG HCO3 ABG O2 Saturation ABG Base Excess Sodium Potassium Chloride Carbon Dioxide BUN Creatinine Glucose POC Glucose 142 H 135 H 142 H Lactic Acid Calcium AST Phosphorus Total Protein Albumin C-Reactive Protein Urine WBC (Auto) 01/25/20 01/26/20 01/26/20 16:33 00:04 11:35 WBC RBC Hgb Hct MCHC RDW Plt Count Lymph % (Auto) Lymph # Seg Neutrophils % Seg Neuts % (Manual) Lymphocytes % (Manual) Seg Neutrophils # Seg Neutrophils # Man Nucleated RBC % Lymphocytes # (Manual) Monocytes # (Manual) PT INR Heparin Anti-Xa Level POC ABG pO2 ABG pH ABG Hemoglobin ABG Oxyhemoglobin ABG pO2 ABG HCO3 ABG O2 Saturation ABG Base Excess Sodium Potassium Chloride Carbon Dioxide BUN Creatinine Glucose POC Glucose 247 H 233 H 200 H Lactic Acid Calcium AST Phosphorus Total Protein Albumin C-Reactive Protein Urine WBC (Auto) 01/26/20 01/26/20 01/26/20 16:30 16:30 17:19 WBC RBC Hgb 7.4 L Hct 22.0 L MCHC RDW Plt Count Lymph % (Auto) Lymph # Seg Neutrophils % Seg Neuts % (Manual) Lymphocytes % (Manual) Seg Neutrophils # Seg Neutrophils # Man Nucleated RBC % Lymphocytes # (Manual) Monocytes # (Manual) PT 18.4 H INR 1.50 H Heparin Anti-Xa Level POC ABG pO2 ABG pH ABG Hemoglobin ABG Oxyhemoglobin ABG pO2 ABG HCO3 ABG O2 Saturation ABG Base Excess Sodium Potassium Chloride Carbon Dioxide BUN Creatinine Glucose POC Glucose 67 L Lactic Acid Calcium AST Phosphorus Total Protein Albumin C-Reactive Protein Urine WBC (Auto) 01/26/20 01/26/20 01/27/20 20:24 21:32 00:16 WBC RBC Hgb Hct MCHC RDW Plt Count Lymph % (Auto) Lymph # Seg Neutrophils % Seg Neuts % (Manual) Lymphocytes % (Manual) Seg Neutrophils # Seg Neutrophils # Man Nucleated RBC % Lymphocytes # (Manual) Monocytes # (Manual) PT INR Heparin Anti-Xa Level POC ABG pO2 51.8 L ABG pH ABG Hemoglobin 8.5 L ABG Oxyhemoglobin 84.7 L ABG pO2 ABG HCO3 ABG O2 Saturation ABG Base Excess Sodium Potassium Chloride Carbon Dioxide BUN Creatinine Glucose POC Glucose 162 H 141 H Lactic Acid Calcium AST Phosphorus Total Protein Albumin C-Reactive Protein Urine WBC (Auto) 01/27/20 01/27/20 01/27/20 01:42 02:18 05:57 WBC RBC Hgb Hct MCHC RDW Plt Count Lymph % (Auto) Lymph # Seg Neutrophils % Seg Neuts % (Manual) Lymphocytes % (Manual) Seg Neutrophils # Seg Neutrophils # Man Nucleated RBC % Lymphocytes # (Manual) Monocytes # (Manual) PT INR Heparin Anti-Xa Level 2.00 H POC ABG pO2 ABG pH ABG Hemoglobin ABG Oxyhemoglobin ABG pO2 ABG HCO3 ABG O2 Saturation ABG Base Excess Sodium Potassium Chloride Carbon Dioxide BUN Creatinine Glucose POC Glucose 183 H 124 H Lactic Acid Calcium AST Phosphorus Total Protein Albumin C-Reactive Protein Urine WBC (Auto) 01/27/20 01/27/20 01/27/20 06:30 06:30 12:23 WBC RBC 2.75 L Hgb 8.4 L Hct 24.9 L MCHC RDW 16.0 H Plt Count 474 H Lymph % (Auto) 12.7 L Lymph # Seg Neutrophils % 83.2 H Seg Neuts % (Manual) Lymphocytes % (Manual) Seg Neutrophils # 8.4 H Seg Neutrophils # Man Nucleated RBC % Lymphocytes # (Manual) Monocytes # (Manual) PT INR Heparin Anti-Xa Level POC ABG pO2 ABG pH ABG Hemoglobin ABG Oxyhemoglobin ABG pO2 ABG HCO3 ABG O2 Saturation ABG Base Excess Sodium Potassium 3.5 L Chloride 110.2 H Carbon Dioxide BUN Creatinine 0.4 L Glucose 101 H POC Glucose 126 H Lactic Acid Calcium 7.8 L AST Phosphorus Total Protein Albumin C-Reactive Protein Urine WBC (Auto) 01/27/20 01/27/20 01/28/20 17:31 23:40 00:00 WBC RBC Hgb Hct MCHC RDW Plt Count Lymph % (Auto) Lymph # Seg Neutrophils % Seg Neuts % (Manual) Lymphocytes % (Manual) Seg Neutrophils # Seg Neutrophils # Man Nucleated RBC % Lymphocytes # (Manual) Monocytes # (Manual) PT INR Heparin Anti-Xa Level 2.00 H POC ABG pO2 ABG pH ABG Hemoglobin ABG Oxyhemoglobin ABG pO2 ABG HCO3 ABG O2 Saturation ABG Base Excess Sodium Potassium Chloride Carbon Dioxide BUN Creatinine Glucose POC Glucose 133 H 136 H Lactic Acid Calcium AST Phosphorus Total Protein Albumin C-Reactive Protein Urine WBC (Auto) 01/28/20 01/28/20 01/28/20 04:26 04:26 05:35 WBC RBC Hgb 9.6 L Hct 28.5 L MCHC RDW Plt Count 508 H Lymph % (Auto) Lymph # Seg Neutrophils % Seg Neuts % (Manual) Lymphocytes % (Manual) Seg Neutrophils # Seg Neutrophils # Man Nucleated RBC % Lymphocytes # (Manual) Monocytes # (Manual) PT INR Heparin Anti-Xa Level POC ABG pO2 ABG pH ABG Hemoglobin ABG Oxyhemoglobin ABG pO2 ABG HCO3 ABG O2 Saturation ABG Base Excess Sodium Potassium Chloride Carbon Dioxide 19 L BUN 20 H Creatinine 0.5 L Glucose 103 H POC Glucose 135 H Lactic Acid Calcium 7.9 L AST Phosphorus Total Protein Albumin C-Reactive Protein Urine WBC (Auto) 01/28/20 01/28/20 01/28/20 08:50 11:10 11:51 WBC RBC Hgb Hct MCHC RDW Plt Count Lymph % (Auto) Lymph # Seg Neutrophils % Seg Neuts % (Manual) Lymphocytes % (Manual) Seg Neutrophils # Seg Neutrophils # Man Nucleated RBC % Lymphocytes # (Manual) Monocytes # (Manual) PT INR Heparin Anti-Xa Level 0.74 H POC ABG pO2 67.2 L ABG pH ABG Hemoglobin 9.3 L ABG Oxyhemoglobin ABG pO2 ABG HCO3 ABG O2 Saturation ABG Base Excess Sodium Potassium Chloride Carbon Dioxide BUN Creatinine Glucose POC Glucose 160 H Lactic Acid Calcium AST Phosphorus Total Protein Albumin C-Reactive Protein Urine WBC (Auto) 01/28/20 01/28/20 01/29/20 17:19 23:53 03:52 WBC RBC Hgb Hct MCHC RDW Plt Count Lymph % (Auto) Lymph # Seg Neutrophils % Seg Neuts % (Manual) Lymphocytes % (Manual) Seg Neutrophils # Seg Neutrophils # Man Nucleated RBC % Lymphocytes # (Manual) Monocytes # (Manual) PT INR Heparin Anti-Xa Level POC ABG pO2 ABG pH 7.510 H ABG Hemoglobin 7.3 L ABG Oxyhemoglobin ABG pO2 357.0 H ABG HCO3 19.6 L ABG O2 Saturation 99.6 H ABG Base Excess -2.9 L Sodium Potassium Chloride Carbon Dioxide BUN Creatinine Glucose POC Glucose 177 H 142 H Lactic Acid Calcium AST Phosphorus Total Protein Albumin C-Reactive Protein Urine WBC (Auto) 01/29/20 01/29/20 01/29/20 04:58 04:58 06:01 WBC 13.1 H RBC 2.75 L Hgb 8.6 L Hct 25.6 L MCHC RDW 17.7 H Plt Count Lymph % (Auto) Lymph # Seg Neutrophils % Seg Neuts % (Manual) 91.0 H Lymphocytes % (Manual) 6.0 L Seg Neutrophils # Seg Neutrophils # Man 11.9 H Nucleated RBC % 1.0 H Lymphocytes # (Manual) 0.8 L Monocytes # (Manual) PT INR Heparin Anti-Xa Level POC ABG pO2 ABG pH ABG Hemoglobin ABG Oxyhemoglobin ABG pO2 ABG HCO3 ABG O2 Saturation ABG Base Excess Sodium 148 H Potassium 3.5 L D Chloride 113.2 H Carbon Dioxide 21 L BUN 20 H Creatinine Glucose 137 H POC Glucose 167 H Lactic Acid Calcium 8.1 L AST Phosphorus Total Protein Albumin C-Reactive Protein Urine WBC (Auto) 01/29/20 01/29/20 01/29/20 11:45 17:52 23:49 WBC RBC Hgb Hct MCHC RDW Plt Count Lymph % (Auto) Lymph # Seg Neutrophils % Seg Neuts % (Manual) Lymphocytes % (Manual) Seg Neutrophils # Seg Neutrophils # Man Nucleated RBC % Lymphocytes # (Manual) Monocytes # (Manual) PT INR Heparin Anti-Xa Level POC ABG pO2 ABG pH ABG Hemoglobin ABG Oxyhemoglobin ABG pO2 ABG HCO3 ABG O2 Saturation ABG Base Excess Sodium Potassium Chloride Carbon Dioxide BUN Creatinine Glucose POC Glucose 185 H 226 H 141 H Lactic Acid Calcium AST Phosphorus Total Protein Albumin C-Reactive Protein Urine WBC (Auto) 01/29/20 01/30/20 01/30/20 Unknown 03:24 04:00 WBC RBC Hgb 7.8 L Hct 23.5 L MCHC RDW Plt Count Lymph % (Auto) Lymph # Seg Neutrophils % Seg Neuts % (Manual) Lymphocytes % (Manual) Seg Neutrophils # Seg Neutrophils # Man Nucleated RBC % Lymphocytes # (Manual) Monocytes # (Manual) PT INR Heparin Anti-Xa Level POC ABG pO2 ABG pH 7.485 H ABG Hemoglobin 6.7 L ABG Oxyhemoglobin ABG pO2 102.0 H ABG HCO3 ABG O2 Saturation ABG Base Excess Sodium Potassium Chloride Carbon Dioxide BUN Creatinine Glucose POC Glucose Lactic Acid Calcium AST Phosphorus Total Protein Albumin C-Reactive Protein 14.80 H Urine WBC (Auto) 01/30/20 01/30/20 01/30/20 05:50 11:15 17:07 WBC RBC Hgb Hct MCHC RDW Plt Count Lymph % (Auto) Lymph # Seg Neutrophils % Seg Neuts % (Manual) Lymphocytes % (Manual) Seg Neutrophils # Seg Neutrophils # Man Nucleated RBC % Lymphocytes # (Manual) Monocytes # (Manual) PT INR Heparin Anti-Xa Level POC ABG pO2 ABG pH ABG Hemoglobin ABG Oxyhemoglobin ABG pO2 ABG HCO3 ABG O2 Saturation ABG Base Excess Sodium Potassium Chloride Carbon Dioxide BUN Creatinine Glucose POC Glucose 122 H 207 H 124 H Lactic Acid Calcium AST Phosphorus Total Protein Albumin C-Reactive Protein Urine WBC (Auto) 01/30/20 01/31/20 01/31/20 17:08 00:10 04:52 WBC RBC Hgb Hct MCHC RDW Plt Count Lymph % (Auto) Lymph # Seg Neutrophils % Seg Neuts % (Manual) Lymphocytes % (Manual) Seg Neutrophils # Seg Neutrophils # Man Nucleated RBC % Lymphocytes # (Manual) Monocytes # (Manual) PT INR Heparin Anti-Xa Level POC ABG pO2 ABG pH 7.504 H 7.486 H ABG Hemoglobin 7.4 L 6.2 L ABG Oxyhemoglobin ABG pO2 169.2 H 121.7 H ABG HCO3 27.1 H ABG O2 Saturation 99.1 H ABG Base Excess 3.4 H Sodium Potassium Chloride Carbon Dioxide BUN Creatinine Glucose POC Glucose 191 H Lactic Acid Calcium AST Phosphorus Total Protein Albumin C-Reactive Protein Urine WBC (Auto) 01/31/20 01/31/20 01/31/20 05:37 11:59 12:40 WBC RBC 2.41 L Hgb 7.5 L Hct 22.3 L MCHC RDW 22.2 H Plt Count Lymph % (Auto) Lymph # Seg Neutrophils % Seg Neuts % (Manual) 94.0 H Lymphocytes % (Manual) 2.0 L Seg Neutrophils # Seg Neutrophils # Man 9.4 H Nucleated RBC % Lymphocytes # (Manual) 0.2 L Monocytes # (Manual) PT INR Heparin Anti-Xa Level POC ABG pO2 ABG pH ABG Hemoglobin ABG Oxyhemoglobin ABG pO2 ABG HCO3 ABG O2 Saturation ABG Base Excess Sodium Potassium Chloride Carbon Dioxide BUN Creatinine Glucose POC Glucose 175 H 220 H Lactic Acid Calcium AST Phosphorus Total Protein Albumin C-Reactive Protein Urine WBC (Auto) 01/31/20 01/31/20 01/31/20 12:40 14:40 18:18 WBC RBC Hgb Hct MCHC RDW Plt Count Lymph % (Auto) Lymph # Seg Neutrophils % Seg Neuts % (Manual) Lymphocytes % (Manual) Seg Neutrophils # Seg Neutrophils # Man Nucleated RBC % Lymphocytes # (Manual) Monocytes # (Manual) PT INR Heparin Anti-Xa Level POC ABG pO2 124.7 H ABG pH 7.542 H ABG Hemoglobin 7.8 L ABG Oxyhemoglobin ABG pO2 ABG HCO3 ABG O2 Saturation ABG Base Excess Sodium 151 H Potassium 2.1 L* D Chloride 108.9 H Carbon Dioxide BUN 22 H Creatinine Glucose 194 H POC Glucose 181 H Lactic Acid Calcium 8.1 L AST Phosphorus Total Protein 4.8 L Albumin 2.3 L C-Reactive Protein Urine WBC (Auto) 02/01/20 02/01/20 02/01/20 00:11 03:14 04:32 WBC 11.9 H RBC 2.47 L Hgb 7.6 L Hct 22.8 L MCHC RDW 22.7 H Plt Count Lymph % (Auto) Lymph # Seg Neutrophils % Seg Neuts % (Manual) 90.0 H Lymphocytes % (Manual) 5.0 L Seg Neutrophils # Seg Neutrophils # Man 10.7 H Nucleated RBC % Lymphocytes # (Manual) 0.6 L Monocytes # (Manual) PT INR Heparin Anti-Xa Level POC ABG pO2 ABG pH 7.564 H ABG Hemoglobin 7.6 L ABG Oxyhemoglobin ABG pO2 124.1 H ABG HCO3 29.6 H ABG O2 Saturation ABG Base Excess 7.0 H Sodium Potassium Chloride Carbon Dioxide BUN Creatinine Glucose POC Glucose 190 H Lactic Acid Calcium AST Phosphorus Total Protein Albumin C-Reactive Protein Urine WBC (Auto) 02/01/20 02/01/20 02/01/20 04:32 05:28 11:56 WBC RBC Hgb Hct MCHC RDW Plt Count Lymph % (Auto) Lymph # Seg Neutrophils % Seg Neuts % (Manual) Lymphocytes % (Manual) Seg Neutrophils # Seg Neutrophils # Man Nucleated RBC % Lymphocytes # (Manual) Monocytes # (Manual) PT INR Heparin Anti-Xa Level POC ABG pO2 ABG pH ABG Hemoglobin ABG Oxyhemoglobin ABG pO2 ABG HCO3 ABG O2 Saturation ABG Base Excess Sodium 149 H Potassium 2.6 L* D Chloride Carbon Dioxide 33 H BUN 23 H Creatinine 0.5 L Glucose 174 H POC Glucose 187 H 195 H Lactic Acid Calcium 8.0 L AST Phosphorus 1.60 L Total Protein Albumin C-Reactive Protein Urine WBC (Auto) 02/01/20 02/01/20 02/02/20 18:15 23:35 04:33 WBC RBC Hgb Hct MCHC RDW Plt Count Lymph % (Auto) Lymph # Seg Neutrophils % Seg Neuts % (Manual) Lymphocytes % (Manual) Seg Neutrophils # Seg Neutrophils # Man Nucleated RBC % Lymphocytes # (Manual) Monocytes # (Manual) PT INR Heparin Anti-Xa Level POC ABG pO2 ABG pH 7.549 H ABG Hemoglobin 9.8 L ABG Oxyhemoglobin ABG pO2 ABG HCO3 ABG O2 Saturation ABG Base Excess Sodium Potassium Chloride Carbon Dioxide BUN Creatinine Glucose POC Glucose 226 H 252 H Lactic Acid Calcium AST Phosphorus Total Protein Albumin C-Reactive Protein Urine WBC (Auto) 02/02/20 02/02/20 02/02/20 05:25 05:25 05:40 WBC 15.5 H RBC 2.43 L Hgb 7.6 L Hct 22.9 L MCHC RDW 23.6 H Plt Count Lymph % (Auto) Lymph # Seg Neutrophils % Seg Neuts % (Manual) 89.0 H Lymphocytes % (Manual) 3.0 L Seg Neutrophils # Seg Neutrophils # Man 13.8 H Nucleated RBC % Lymphocytes # (Manual) 0.5 L Monocytes # (Manual) 0.9 H PT INR Heparin Anti-Xa Level POC ABG pO2 ABG pH ABG Hemoglobin ABG Oxyhemoglobin ABG pO2 ABG HCO3 ABG O2 Saturation ABG Base Excess Sodium Potassium 2.6 L* Chloride Carbon Dioxide 33 H BUN 26 H Creatinine Glucose 175 H POC Glucose 181 H Lactic Acid Calcium 7.9 L AST Phosphorus Total Protein Albumin C-Reactive Protein Urine WBC (Auto) 02/02/20 11:55 WBC RBC Hgb Hct MCHC RDW Plt Count Lymph % (Auto) Lymph # Seg Neutrophils % Seg Neuts % (Manual) Lymphocytes % (Manual) Seg Neutrophils # Seg Neutrophils # Man Nucleated RBC % Lymphocytes # (Manual) Monocytes # (Manual) PT INR Heparin Anti-Xa Level POC ABG pO2 ABG pH ABG Hemoglobin ABG Oxyhemoglobin ABG pO2 ABG HCO3 ABG O2 Saturation ABG Base Excess Sodium Potassium Chloride Carbon Dioxide BUN Creatinine Glucose POC Glucose 226 H Lactic Acid Calcium AST Phosphorus Total Protein Albumin C-Reactive Protein Urine WBC (Auto) Chest x-ray: image reviewed (no focal infiltrate) Allied health notes reviewed: nursing
[2020-02-02] MEDS ORDERED: GLYCOPYRROLATE 0.4 MG/2 ML INJ IV STA (14:12)
[2020-02-02] MEDS: traZODone 50 MG TAB PO SCH (21:26)
[2020-02-02] MEDS: DONEPEZIL 10 MG TAB PO SCH (21:27)
[2020-02-02] MEDS: MIRTAZAPINE 15 MG TAB PO SCH (21:37)
[2020-02-02] MEDS ORDERED: POTASSIUM CHLORIDE 20 MEQ PACKET FEEDTUBE ONE (22:40)
[2020-02-03] MEDS: INSULIN REGULAR, HUMAN 100 UNIT/ML 3ML VIAL SUB-Q SCH ×5 (00:33→23:14)
--- NOTE | 2020-02-03 04:41 | XRay Report ---
CHEST 1 VIEW 02/03/2020 3:31 AM INDICATION / CLINICAL INFORMATION: follow up respiratory failure. COMPARISON: 02/02/2020 FINDINGS: SUPPORT DEVICES: Stable, satisfactory device positioning. HEART / MEDIASTINUM: Stable. LUNGS / PLEURA: No significant pulmonary or pleural abnormality. No pneumothorax. ADDITIONAL FINDINGS: Stable elevation left hemidiaphragm. IMPRESSION: 1. No acute findings. Signer Name: Sundar Spring MD Signed: 02/03/2020 4:36 AM Workstation Name: [id number]
[2020-02-03 05:26] LABS: Hematocrit 23.2 % (30.3-42.9); Hemoglobin 7.6 gm/dl (10.1-14.3); Mean Corpuscular HGB Conc 33 % (30-34); Mean Corpuscular Volume 95 fl (79-97); Platelet Count 272 K/mm3 (140-440); Red Blood Count 2.45 M/mm3 (3.65-5.03)
[2020-02-03 05:28] LABS: Red Cell Distribution Width 23.5 % (13.2-15.2)
[2020-02-03 05:46] LABS: Alanine Aminotransferase 22 units/L (7-56); Albumin 2.4 g/dL (3.9-5); Blood Urea Nitrogen 29 mg/dL (7-17); Calcium 7.9 mg/dL (8.4-10.2); Hemolysis Index 2
[2020-02-03] MEDS: HYDROCORTISONE SOD SUCC 100 MG/2 ML VIAL IV SCH ×3 (05:51→23:09)
[2020-02-03] MEDS: PIPERACIL/TAZOBACTA 4.5/NS 100 4.5 GM/100 ML VIAL IV SCH ×3 (05:51→22:28)
[2020-02-03 05:57] LABS: BUN/Creatinine Ratio 58
[2020-02-03 06:23] LABS: Anisocytosis 2+; Basophils % (Manual) 0 % (0.0-1.8); Eosinophils % (Manual) 0 % (0.0-4.3); Total Cells Counted 100
[2020-02-03 06:24] LABS: Burr Cells Few; Hypochromasia 2+; Ovalocytes Few; Poikilocytosis Few; Schistocytes Few; Target Cells Few
[2020-02-03 06:25] LABS: Platelet Estimate Consistent w Auto
--- NOTE | 2020-02-03 08:12 | Progress Note ---
Assessment and Plan Severe sepsis with shock. Left lung atelectasis. Left pleural effusion. Acute hypoxemic respiratory failure. Acute possibly on chronic encephalopathy. History of diabetes. Urinary tract infection. History of pulmonary embolism, diagnosed several months ago. Sacral decubitus ulcer. Dementia. Anemia that is normocytic. (AMS is improved; i have discussed with her and especially with cuff leak and need to change tube out i will give her a trial of extubation) - potassium replaced (80 meq) - continue scopolamine - reduced free water at 100 mls q4h - continue care as below otherwise; - continue stress dose steroids taper (75 mg q8h X 1 day; 50 mg q8h, q12h then 25mg bid X 1 day then stop) - repeat procalcitonin as necessary to aid clinical decision making while on systemic steroids - continue to wean supplemental oxygen for target O2 sat's > 92% acutely - continue aspiration precautions - continue lung protective strategies - continue bronchodilators with pulmonary hygiene per RT - wean per pulmonary driven protocols otherwise - continue accuchecks with glycemic control per SSI (While critically ill target blood glucose of 140-180 mg/dL; avoid hypoglycemia) - avoid nephrotoxins, renally dose all medications - continue to avoid benzodiazepine's, reduce the possibility of delirium - complete AB's per ID rec's - prn analgesia per CPOT score - Maintenance of sleep-wake cycle, avoid delirium - continue enteral nutritional support at goal rate as tolerated - G.I. & VTE prophylaxis with famotidine and heparin - PT/OT/ROM exercises - continue mobility protocols for pressure ulcer prophylaxis - Monitor hemodynamics closely - continue other care per attending / other consultants - discharge planning ongoing concurrently ..... TRANSFER TO [facility] .... Re-evaluate in am & prn I have spent ( >35 ) minutes with the patient w/ >50% of the time spent counseling and/or coordinating care for this patient. Counseling topics and/or how time was spent coordinating patient's care is outlined in the impression and plan above. Subjective Date of service: 02/03/20 Principal diagnosis: Septic Shock; S/P Cardiac Arrest; Ac. hypoxemic resp failure; UTI Interval history: Patient is seen today for: Severe sepsis with shock; S/P Cardiac Arrest; L. lung atelectasis / L. pleural effusion; Acute hypoxemic respiratory failure; Acute possibly on chronic encephalopathy; DM II; UTI; VTE Seen and examined at bedside; 24hour events reviewed; nursing and respiratory care staff consulted; no adverse overnight events reported to me; resting peacefully in bed; remains on supplemental oxygen via venti-mask; breathing is non labored; No emesis or oivert aspiration; remains off vasopressors; potassium still low; also sugars running high Objective Vital Signs - 12hr 02/02/20 02/02/20 02/02/20 20:15 20:30 20:45 Temperature Pulse Rate 104 H 107 H 106 H Pulse Rate [ From Monitor] Respiratory 17 16 18 Rate Blood Pressure 120/61 120/61 115/62 O2 Sat by Pulse 100 100 100 Oximetry 02/02/20 02/02/20 02/02/20 21:00 21:15 21:30 Temperature Pulse Rate 106 H 106 H 108 H Pulse Rate [ From Monitor] Respiratory 18 19 19 Rate Blood Pressure 121/63 116/64 121/62 O2 Sat by Pulse 100 100 100 Oximetry 02/02/20 02/02/20 02/02/20 21:45 22:00 22:15 Temperature Pulse Rate 109 H 98 H 102 H Pulse Rate [ From Monitor] Respiratory 16 17 17 Rate Blood Pressure 122/66 127/61 126/69 O2 Sat by Pulse 100 100 100 Oximetry 02/02/20 02/02/20 02/02/20 22:30 22:45 23:00 Temperature Pulse Rate 104 H 95 H 101 H Pulse Rate [ From Monitor] Respiratory 18 18 18 Rate Blood Pressure 135/66 127/61 137/69 O2 Sat by Pulse 100 100 100 Oximetry 02/02/20 02/02/20 02/02/20 23:15 23:28 23:30 Temperature 97.5 F L Pulse Rate 98 H 102 H Pulse Rate [ From Monitor] Respiratory 17 20 Rate Blood Pressure 134/68 128/67 O2 Sat by Pulse 100 100 Oximetry 02/02/20 02/02/20 02/03/20 23:45 23:54 00:00 Temperature Pulse Rate 88 113 H 110 H Pulse Rate [ 110 H From Monitor] Respiratory 15 19 21 Rate Blood Pressure 136/65 136/65 133/70 O2 Sat by Pulse 100 98 98 Oximetry 02/03/20 02/03/20 02/03/20 00:15 00:30 00:45 Temperature Pulse Rate 95 H 95 H 88 Pulse Rate [ From Monitor] Respiratory 17 19 13 Rate Blood Pressure 123/65 124/65 129/61 O2 Sat by Pulse 98 98 99 Oximetry 02/03/20 02/03/20 02/03/20 01:00 01:15 01:30 Temperature Pulse Rate 100 H 101 H 91 H Pulse Rate [ From Monitor] Respiratory 20 16 17 Rate Blood Pressure 136/70 126/68 134/67 O2 Sat by Pulse 99 99 99 Oximetry 02/03/20 02/03/20 02/03/20 01:45 02:00 02:15 Temperature Pulse Rate 82 86 86 Pulse Rate [ From Monitor] Respiratory 20 23 16 Rate Blood Pressure 130/63 121/65 121/67 O2 Sat by Pulse 100 100 100 Oximetry 02/03/20 02/03/20 02/03/20 02:30 02:45 03:00 Temperature Pulse Rate 73 79 86 Pulse Rate [ From Monitor] Respiratory 18 19 18 Rate Blood Pressure 127/58 135/63 136/63 O2 Sat by Pulse 100 100 100 Oximetry 02/03/20 02/03/20 02/03/20 03:15 03:27 03:30 Temperature 97.8 F Pulse Rate 84 92 H Pulse Rate [ From Monitor] Respiratory 26 H 17 Rate Blood Pressure 126/61 120/66 O2 Sat by Pulse 100 100 Oximetry 02/03/20 02/03/20 02/03/20 03:45 04:00 04:01 Temperature Pulse Rate 94 H 104 H 104 H Pulse Rate [ 104 H From Monitor] Respiratory 22 18 18 Rate Blood Pressure 126/61 126/61 O2 Sat by Pulse 100 98 100 Oximetry 02/03/20 02/03/20 02/03/20 04:15 04:30 04:39 Temperature Pulse Rate 84 78 78 Pulse Rate [ From Monitor] Respiratory 18 20 21 Rate Blood Pressure 122/62 125/60 125/60 O2 Sat by Pulse 100 100 100 Oximetry 02/03/20 02/03/20 02/03/20 04:45 05:00 05:15 Temperature Pulse Rate 79 76 80 Pulse Rate [ From Monitor] Respiratory 19 20 20 Rate Blood Pressure 127/60 119/56 121/60 O2 Sat by Pulse 100 100 100 Oximetry 02/03/20 02/03/20 02/03/20 05:30 05:46 06:00 Temperature Pulse Rate 76 69 76 Pulse Rate [ From Monitor] Respiratory 18 16 19 Rate Blood Pressure 121/60 128/58 123/51 O2 Sat by Pulse 100 100 100 Oximetry 02/03/20 02/03/20 02/03/20 06:15 06:30 06:46 Temperature Pulse Rate 75 90 85 Pulse Rate [ From Monitor] Respiratory 16 20 15 Rate Blood Pressure 145/56 145/56 134/59 O2 Sat by Pulse 100 100 99 Oximetry 02/03/20 02/03/20 02/03/20 07:00 07:15 07:30 Temperature Pulse Rate 82 95 H 93 H Pulse Rate [ From Monitor] Respiratory 15 21 18 Rate Blood Pressure 140/56 125/58 128/60 O2 Sat by Pulse 98 98 98 Oximetry 02/03/20 07:49 Temperature Pulse Rate Pulse Rate [ From Monitor] Respiratory Rate Blood Pressure O2 Sat by Pulse 98 Oximetry Constitutional: no acute distress, alert, other (elderly chronically ill looking female with normal respiratory effort at rest ) Eyes: non-icteric ENT: oropharynx moist, other (extubated) Neck: supple, no lymphadenopathy Effort: normal Ascultation: Bilateral: diminished breath sounds, rhonchi (scant) Percussion: Bilateral: not dull Cardiovascular: regular rate and rhythm, other (S1,S2) Gastrointestinal: normoactive bowel sounds, soft, non-tender, other (PEG in place) Integumentary: decubitus ulcer Extremities: no cyanosis, no edema, pulses normal, no ischemia or petechiae Neurologic: pupils equal and round, unable to assess Psychiatric: other (Unable to assess secondary to mental status) CBC and BMP: 02/03/20 05:14 02/03/20 05:14 ABG, PT/INR, D-dimer: ABG ABG pH 7.56 (7.320-7.450) H 02/02/20 14:45 POC ABG pCO2 39.4 mmHg (32.0-48.0) 02/02/20 14:45 ABG pCO2 33.6 mm Hg 02/01/20 03:14 POC ABG pO2 98.6 mmHg (83-108) 02/02/20 14:45 ABG pO2 124.1 mm Hg (80.0-90.0) H 02/01/20 03:14 POC ABG HCO3 34.5 02/02/20 14:45 ABG O2 Saturation 98.7 % (95.0-99.0) 02/01/20 03:14 PT/INR, D-dimer PT 14.4 Sec. (12.2-14.9) 02/02/20 05:25 INR 1.11 (0.87-1.13) 02/02/20 05:25 Abnormal lab findings: Abnormal Labs 01/08/20 01/08/20 01/08/20 16:29 16:29 16:29 WBC 13.5 H RBC Hgb Hct MCHC RDW 15.5 H Plt Count Lymph % (Auto) Lymph # Seg Neutrophils % Seg Neuts % (Manual) 85.0 H Lymphocytes % (Manual) 11.0 L Seg Neutrophils # Seg Neutrophils # Man 11.5 H Nucleated RBC % Lymphocytes # (Manual) Monocytes # (Manual) PT INR Heparin Anti-Xa Level POC ABG pO2 ABG pH ABG Hemoglobin ABG Oxyhemoglobin ABG pO2 ABG HCO3 ABG O2 Saturation ABG Base Excess Sodium 161 H* Potassium Chloride 125.5 H Carbon Dioxide 20 L BUN 30 H Creatinine Glucose 115 H POC Glucose Lactic Acid 2.20 H* Calcium 7.9 L AST 48 H Phosphorus Total Protein Albumin 2.5 L C-Reactive Protein Urine WBC (Auto) 01/08/20 01/08/20 01/08/20 19:02 23:30 Unknown WBC RBC Hgb Hct MCHC RDW Plt Count Lymph % (Auto) Lymph # Seg Neutrophils % Seg Neuts % (Manual) Lymphocytes % (Manual) Seg Neutrophils # Seg Neutrophils # Man Nucleated RBC % Lymphocytes # (Manual) Monocytes # (Manual) PT INR Heparin Anti-Xa Level POC ABG pO2 ABG pH ABG Hemoglobin ABG Oxyhemoglobin ABG pO2 ABG HCO3 ABG O2 Saturation ABG Base Excess Sodium Potassium Chloride Carbon Dioxide BUN Creatinine Glucose POC Glucose Lactic Acid 2.10 H* 2.50 H* Calcium AST Phosphorus Total Protein Albumin C-Reactive Protein Urine WBC (Auto) 11.0 H 01/09/20 01/09/20 01/09/20 00:19 00:54 05:52 WBC 13.5 H RBC 3.02 L Hgb 9.0 L D Hct 27.4 L D MCHC RDW Plt Count Lymph % (Auto) 9.1 L Lymph # Seg Neutrophils % 87.6 H Seg Neuts % (Manual) Lymphocytes % (Manual) Seg Neutrophils # 11.8 H Seg Neutrophils # Man Nucleated RBC % Lymphocytes # (Manual) Monocytes # (Manual) PT INR Heparin Anti-Xa Level POC ABG pO2 ABG pH ABG Hemoglobin ABG Oxyhemoglobin ABG pO2 ABG HCO3 ABG O2 Saturation ABG Base Excess Sodium Potassium Chloride Carbon Dioxide BUN Creatinine Glucose POC Glucose 118 H 116 H Lactic Acid Calcium AST Phosphorus Total Protein Albumin C-Reactive Protein Urine WBC (Auto) 01/09/20 01/09/20 01/09/20 05:52 05:52 13:03 WBC RBC Hgb Hct MCHC RDW Plt Count Lymph % (Auto) Lymph # Seg Neutrophils % Seg Neuts % (Manual) Lymphocytes % (Manual) Seg Neutrophils # Seg Neutrophils # Man Nucleated RBC % Lymphocytes # (Manual) Monocytes # (Manual) PT 17.1 H INR 1.36 H Heparin Anti-Xa Level POC ABG pO2 ABG pH ABG Hemoglobin ABG Oxyhemoglobin ABG pO2 ABG HCO3 ABG O2 Saturation ABG Base Excess Sodium 162 H* Potassium 3.0 L D Chloride 128.3 H Carbon Dioxide BUN 23 H Creatinine Glucose POC Glucose 55 L Lactic Acid Calcium 7.6 L AST Phosphorus Total Protein Albumin C-Reactive Protein Urine WBC (Auto) 01/09/20 01/09/20 01/09/20 21:22 21:50 22:28 WBC RBC Hgb Hct MCHC RDW Plt Count Lymph % (Auto) Lymph # Seg Neutrophils % Seg Neuts % (Manual) Lymphocytes % (Manual) Seg Neutrophils # Seg Neutrophils # Man Nucleated RBC % Lymphocytes # (Manual) Monocytes # (Manual) PT INR Heparin Anti-Xa Level POC ABG pO2 ABG pH ABG Hemoglobin ABG Oxyhemoglobin ABG pO2 ABG HCO3 ABG O2 Saturation ABG Base Excess Sodium 159 H Potassium 5.1 H D Chloride 128.5 H Carbon Dioxide 16 L BUN 23 H Creatinine Glucose 51 L POC Glucose 52 L 106 H Lactic Acid Calcium 8.2 L AST Phosphorus Total Protein Albumin C-Reactive Protein Urine WBC (Auto) 01/10/20 01/10/20 01/10/20 05:23 09:11 10:10 WBC 13.4 H RBC Hgb Hct MCHC RDW Plt Count Lymph % (Auto) 7.2 L Lymph # 1.0 L Seg Neutrophils % 90.0 H Seg Neuts % (Manual) Lymphocytes % (Manual) Seg Neutrophils # 12.0 H Seg Neutrophils # Man Nucleated RBC % Lymphocytes # (Manual) Monocytes # (Manual) PT INR Heparin Anti-Xa Level POC ABG pO2 ABG pH ABG Hemoglobin ABG Oxyhemoglobin ABG pO2 ABG HCO3 ABG O2 Saturation ABG Base Excess Sodium 155 H Potassium Chloride 122.8 H Carbon Dioxide 21 L BUN 19 H Creatinine Glucose POC Glucose 120 H Lactic Acid Calcium AST Phosphorus Total Protein Albumin C-Reactive Protein Urine WBC (Auto) 01/10/20 01/10/20 01/10/20 11:47 11:57 17:09 WBC RBC Hgb Hct MCHC RDW Plt Count Lymph % (Auto) Lymph # Seg Neutrophils % Seg Neuts % (Manual) Lymphocytes % (Manual) Seg Neutrophils # Seg Neutrophils # Man Nucleated RBC % Lymphocytes # (Manual) Monocytes # (Manual) PT INR Heparin Anti-Xa Level POC ABG pO2 ABG pH ABG Hemoglobin ABG Oxyhemoglobin ABG pO2 ABG HCO3 ABG O2 Saturation ABG Base Excess Sodium 153 H Potassium Chloride 118.3 H Carbon Dioxide 20 L BUN 19 H Creatinine Glucose 113 H POC Glucose 142 H 125 H Lactic Acid Calcium AST Phosphorus Total Protein Albumin C-Reactive Protein Urine WBC (Auto) 01/10/20 01/10/20 01/11/20 20:27 22:00 00:45 WBC RBC Hgb Hct MCHC RDW Plt Count Lymph % (Auto) Lymph # Seg Neutrophils % Seg Neuts % (Manual) Lymphocytes % (Manual) Seg Neutrophils # Seg Neutrophils # Man Nucleated RBC % Lymphocytes # (Manual) Monocytes # (Manual) PT INR Heparin Anti-Xa Level POC ABG pO2 ABG pH ABG Hemoglobin ABG Oxyhemoglobin ABG pO2 ABG HCO3 ABG O2 Saturation ABG Base Excess Sodium 153 H 154 H Potassium 3.3 L 3.2 L Chloride 117.0 H 118.9 H Carbon Dioxide 20 L BUN Creatinine Glucose POC Glucose 136 H Lactic Acid Calcium 8.3 L 8.0 L AST Phosphorus Total Protein Albumin C-Reactive Protein Urine WBC (Auto) 01/11/20 01/11/20 01/11/20 07:06 08:03 11:54 WBC RBC Hgb Hct MCHC RDW Plt Count Lymph % (Auto) Lymph # Seg Neutrophils % Seg Neuts % (Manual) Lymphocytes % (Manual) Seg Neutrophils # Seg Neutrophils # Man Nucleated RBC % Lymphocytes # (Manual) Monocytes # (Manual) PT INR Heparin Anti-Xa Level POC ABG pO2 ABG pH ABG Hemoglobin ABG Oxyhemoglobin ABG pO2 ABG HCO3 ABG O2 Saturation ABG Base Excess Sodium 151 H Potassium Chloride 118.7 H Carbon Dioxide 21 L BUN Creatinine Glucose 107 H POC Glucose 118 H 164 H Lactic Acid Calcium 8.3 L AST Phosphorus Total Protein Albumin C-Reactive Protein Urine WBC (Auto) 01/11/20 01/12/20 01/12/20 16:28 00:19 05:40 WBC RBC Hgb Hct MCHC RDW Plt Count Lymph % (Auto) Lymph # Seg Neutrophils % Seg Neuts % (Manual) Lymphocytes % (Manual) Seg Neutrophils # Seg Neutrophils # Man Nucleated RBC % Lymphocytes # (Manual) Monocytes # (Manual) PT INR Heparin Anti-Xa Level POC ABG pO2 ABG pH ABG Hemoglobin ABG Oxyhemoglobin ABG pO2 ABG HCO3 ABG O2 Saturation ABG Base Excess Sodium 148 H Potassium Chloride 111.6 H Carbon Dioxide 19 L BUN Creatinine Glucose 128 H POC Glucose 132 H 179 H Lactic Acid Calcium 8.2 L AST Phosphorus Total Protein Albumin C-Reactive Protein Urine WBC (Auto) 01/12/20 01/12/20 01/12/20 06:17 11:37 17:21 WBC RBC Hgb Hct MCHC RDW Plt Count Lymph % (Auto) Lymph # Seg Neutrophils % Seg Neuts % (Manual) Lymphocytes % (Manual) Seg Neutrophils # Seg Neutrophils # Man Nucleated RBC % Lymphocytes # (Manual) Monocytes # (Manual) PT INR Heparin Anti-Xa Level POC ABG pO2 ABG pH ABG Hemoglobin ABG Oxyhemoglobin ABG pO2 ABG HCO3 ABG O2 Saturation ABG Base Excess Sodium Potassium Chloride Carbon Dioxide BUN Creatinine Glucose POC Glucose 140 H 142 H 133 H Lactic Acid Calcium AST Phosphorus Total Protein Albumin C-Reactive Protein Urine WBC (Auto) 01/12/20 01/13/20 01/13/20 23:14 05:26 07:00 WBC RBC Hgb Hct MCHC RDW Plt Count Lymph % (Auto) Lymph # Seg Neutrophils % Seg Neuts % (Manual) Lymphocytes % (Manual) Seg Neutrophils # Seg Neutrophils # Man Nucleated RBC % Lymphocytes # (Manual) Monocytes # (Manual) PT INR Heparin Anti-Xa Level POC ABG pO2 ABG pH ABG Hemoglobin ABG Oxyhemoglobin ABG pO2 ABG HCO3 ABG O2 Saturation ABG Base Excess Sodium Potassium Chloride 110.0 H Carbon Dioxide BUN Creatinine Glucose 139 H POC Glucose 135 H 162 H Lactic Acid Calcium 7.8 L AST Phosphorus Total Protein Albumin C-Reactive Protein Urine WBC (Auto) 01/13/20 01/13/20 01/13/20 12:14 17:52 21:40 WBC RBC Hgb Hct MCHC RDW Plt Count Lymph % (Auto) Lymph # Seg Neutrophils % Seg Neuts % (Manual) Lymphocytes % (Manual) Seg Neutrophils # Seg Neutrophils # Man Nucleated RBC % Lymphocytes # (Manual) Monocytes # (Manual) PT INR Heparin Anti-Xa Level POC ABG pO2 ABG pH ABG Hemoglobin ABG Oxyhemoglobin ABG pO2 ABG HCO3 ABG O2 Saturation ABG Base Excess Sodium Potassium Chloride Carbon Dioxide BUN Creatinine Glucose POC Glucose 205 H 172 H 186 H Lactic Acid Calcium AST Phosphorus Total Protein Albumin C-Reactive Protein Urine WBC (Auto) 01/14/20 01/14/20 01/14/20 04:28 11:01 11:01 WBC 14.8 H RBC 3.20 L Hgb 9.5 L Hct 28.0 L MCHC RDW Plt Count Lymph % (Auto) Lymph # Seg Neutrophils % Seg Neuts % (Manual) Lymphocytes % (Manual) Seg Neutrophils # Seg Neutrophils # Man Nucleated RBC % Lymphocytes # (Manual) Monocytes # (Manual) PT INR Heparin Anti-Xa Level POC ABG pO2 ABG pH ABG Hemoglobin ABG Oxyhemoglobin ABG pO2 ABG HCO3 ABG O2 Saturation ABG Base Excess Sodium Potassium 3.2 L Chloride Carbon Dioxide BUN Creatinine 0.4 L Glucose POC Glucose 115 H Lactic Acid Calcium 8.0 L AST Phosphorus Total Protein Albumin C-Reactive Protein Urine WBC (Auto) 01/14/20 01/14/20 01/14/20 11:01 16:33 22:32 WBC RBC Hgb Hct MCHC RDW Plt Count Lymph % (Auto) Lymph # Seg Neutrophils % Seg Neuts % (Manual) Lymphocytes % (Manual) Seg Neutrophils # Seg Neutrophils # Man Nucleated RBC % Lymphocytes # (Manual) Monocytes # (Manual) PT 15.8 H INR 1.23 H Heparin Anti-Xa Level POC ABG pO2 ABG pH ABG Hemoglobin ABG Oxyhemoglobin ABG pO2 ABG HCO3 ABG O2 Saturation ABG Base Excess Sodium Potassium Chloride Carbon Dioxide BUN Creatinine Glucose POC Glucose 58 L 188 H Lactic Acid Calcium AST Phosphorus Total Protein Albumin C-Reactive Protein Urine WBC (Auto) 01/15/20 01/15/20 01/15/20 05:35 06:19 17:17 WBC RBC Hgb Hct MCHC RDW Plt Count Lymph % (Auto) Lymph # Seg Neutrophils % Seg Neuts % (Manual) Lymphocytes % (Manual) Seg Neutrophils # Seg Neutrophils # Man Nucleated RBC % Lymphocytes # (Manual) Monocytes # (Manual) PT INR Heparin Anti-Xa Level POC ABG pO2 ABG pH ABG Hemoglobin ABG Oxyhemoglobin ABG pO2 ABG HCO3 ABG O2 Saturation ABG Base Excess Sodium Potassium Chloride Carbon Dioxide BUN Creatinine 0.5 L Glucose 104 H POC Glucose 106 H 183 H Lactic Acid Calcium 7.8 L AST Phosphorus Total Protein Albumin C-Reactive Protein Urine WBC (Auto) 01/15/20 01/16/20 01/16/20 22:29 05:35 05:59 WBC 14.7 H RBC 3.04 L Hgb 9.0 L Hct 27.0 L MCHC RDW Plt Count Lymph % (Auto) 9.1 L Lymph # Seg Neutrophils % 87.3 H Seg Neuts % (Manual) Lymphocytes % (Manual) Seg Neutrophils # 12.9 H Seg Neutrophils # Man Nucleated RBC % Lymphocytes # (Manual) Monocytes # (Manual) PT INR Heparin Anti-Xa Level POC ABG pO2 ABG pH ABG Hemoglobin ABG Oxyhemoglobin ABG pO2 ABG HCO3 ABG O2 Saturation ABG Base Excess Sodium Potassium Chloride Carbon Dioxide BUN Creatinine Glucose POC Glucose 228 H 130 H Lactic Acid Calcium AST Phosphorus Total Protein Albumin C-Reactive Protein Urine WBC (Auto) 01/16/20 01/16/20 01/16/20 09:52 12:49 17:30 WBC RBC Hgb Hct MCHC RDW Plt Count Lymph % (Auto) Lymph # Seg Neutrophils % Seg Neuts % (Manual) Lymphocytes % (Manual) Seg Neutrophils # Seg Neutrophils # Man Nucleated RBC % Lymphocytes # (Manual) Monocytes # (Manual) PT INR Heparin Anti-Xa Level POC ABG pO2 ABG pH ABG Hemoglobin ABG Oxyhemoglobin ABG pO2 ABG HCO3 ABG O2 Saturation ABG Base Excess Sodium Potassium Chloride Carbon Dioxide BUN Creatinine Glucose POC Glucose 122 H 142 H 192 H Lactic Acid Calcium AST Phosphorus Total Protein Albumin C-Reactive Protein Urine WBC (Auto) 01/16/20 01/17/20 01/17/20 23:01 08:36 08:36 WBC 12.7 H RBC 2.98 L Hgb 8.9 L Hct 26.4 L MCHC RDW Plt Count Lymph % (Auto) 8.8 L Lymph # 1.1 L Seg Neutrophils % 86.7 H Seg Neuts % (Manual) Lymphocytes % (Manual) Seg Neutrophils # 11.0 H Seg Neutrophils # Man Nucleated RBC % Lymphocytes # (Manual) Monocytes # (Manual) PT INR Heparin Anti-Xa Level POC ABG pO2 ABG pH ABG Hemoglobin ABG Oxyhemoglobin ABG pO2 ABG HCO3 ABG O2 Saturation ABG Base Excess Sodium Potassium 3.3 L D Chloride Carbon Dioxide BUN Creatinine 0.4 L Glucose POC Glucose 141 H Lactic Acid Calcium 8.1 L AST Phosphorus Total Protein 4.6 L Albumin 1.6 L C-Reactive Protein Urine WBC (Auto) 01/17/20 01/17/20 01/18/20 11:43 23:56 06:27 WBC RBC Hgb Hct MCHC RDW Plt Count Lymph % (Auto) Lymph # Seg Neutrophils % Seg Neuts % (Manual) Lymphocytes % (Manual) Seg Neutrophils # Seg Neutrophils # Man Nucleated RBC % Lymphocytes # (Manual) Monocytes # (Manual) PT INR Heparin Anti-Xa Level POC ABG pO2 ABG pH ABG Hemoglobin ABG Oxyhemoglobin ABG pO2 ABG HCO3 ABG O2 Saturation ABG Base Excess Sodium Potassium Chloride Carbon Dioxide BUN Creatinine Glucose POC Glucose 137 H 215 H 122 H Lactic Acid Calcium AST Phosphorus Total Protein Albumin C-Reactive Protein Urine WBC (Auto) 01/18/20 01/18/20 01/18/20 07:31 07:31 11:39 WBC 12.1 H RBC 3.23 L Hgb 9.7 L Hct 28.7 L MCHC RDW Plt Count Lymph % (Auto) 9.2 L Lymph # 1.1 L Seg Neutrophils % 85.0 H Seg Neuts % (Manual) Lymphocytes % (Manual) Seg Neutrophils # 10.3 H Seg Neutrophils # Man Nucleated RBC % Lymphocytes # (Manual) Monocytes # (Manual) PT INR Heparin Anti-Xa Level POC ABG pO2 ABG pH ABG Hemoglobin ABG Oxyhemoglobin ABG pO2 ABG HCO3 ABG O2 Saturation ABG Base Excess Sodium Potassium Chloride Carbon Dioxide BUN Creatinine 0.4 L Glucose 108 H POC Glucose 172 H Lactic Acid Calcium AST Phosphorus Total Protein 5.3 L Albumin 2.1 L C-Reactive Protein Urine WBC (Auto) 01/18/20 01/19/20 01/19/20 18:22 00:15 11:30 WBC RBC Hgb Hct MCHC RDW Plt Count Lymph % (Auto) Lymph # Seg Neutrophils % Seg Neuts % (Manual) Lymphocytes % (Manual) Seg Neutrophils # Seg Neutrophils # Man Nucleated RBC % Lymphocytes # (Manual) Monocytes # (Manual) PT INR Heparin Anti-Xa Level POC ABG pO2 ABG pH ABG Hemoglobin ABG Oxyhemoglobin ABG pO2 ABG HCO3 ABG O2 Saturation ABG Base Excess Sodium Potassium Chloride Carbon Dioxide BUN Creatinine Glucose POC Glucose 119 H 135 H 163 H Lactic Acid Calcium AST Phosphorus Total Protein Albumin C-Reactive Protein Urine WBC (Auto) 01/19/20 01/19/20 01/20/20 17:44 22:59 03:44 WBC 11.1 H RBC 2.77 L Hgb 8.4 L Hct 25.0 L MCHC RDW Plt Count Lymph % (Auto) Lymph # Seg Neutrophils % 74.6 H Seg Neuts % (Manual) Lymphocytes % (Manual) Seg Neutrophils # 8.3 H Seg Neutrophils # Man Nucleated RBC % Lymphocytes # (Manual) Monocytes # (Manual) PT INR Heparin Anti-Xa Level POC ABG pO2 ABG pH ABG Hemoglobin ABG Oxyhemoglobin ABG pO2 ABG HCO3 ABG O2 Saturation ABG Base Excess Sodium Potassium Chloride Carbon Dioxide BUN Creatinine Glucose POC Glucose 161 H 182 H Lactic Acid Calcium AST Phosphorus Total Protein Albumin C-Reactive Protein Urine WBC (Auto) 01/20/20 01/21/20 01/21/20 03:44 00:07 05:51 WBC RBC 2.84 L Hgb 8.6 L Hct 25.5 L MCHC RDW Plt Count 463 H Lymph % (Auto) Lymph # Seg Neutrophils % 76.9 H Seg Neuts % (Manual) Lymphocytes % (Manual) Seg Neutrophils # 7.8 H Seg Neutrophils # Man Nucleated RBC % Lymphocytes # (Manual) Monocytes # (Manual) PT INR Heparin Anti-Xa Level POC ABG pO2 ABG pH ABG Hemoglobin ABG Oxyhemoglobin ABG pO2 ABG HCO3 ABG O2 Saturation ABG Base Excess Sodium Potassium Chloride Carbon Dioxide BUN Creatinine 0.4 L Glucose POC Glucose 68 L Lactic Acid Calcium 7.9 L AST Phosphorus Total Protein 4.7 L Albumin 1.9 L C-Reactive Protein Urine WBC (Auto) 01/21/20 01/21/20 01/21/20 05:51 05:58 11:25 WBC RBC Hgb Hct MCHC RDW Plt Count Lymph % (Auto) Lymph # Seg Neutrophils % Seg Neuts % (Manual) Lymphocytes % (Manual) Seg Neutrophils # Seg Neutrophils # Man Nucleated RBC % Lymphocytes # (Manual) Monocytes # (Manual) PT INR Heparin Anti-Xa Level POC ABG pO2 ABG pH ABG Hemoglobin ABG Oxyhemoglobin ABG pO2 ABG HCO3 ABG O2 Saturation ABG Base Excess Sodium Potassium Chloride Carbon Dioxide 20 L BUN Creatinine 0.5 L Glucose 130 H POC Glucose 185 H 163 H Lactic Acid Calcium 7.6 L AST Phosphorus Total Protein 5.0 L Albumin 1.9 L C-Reactive Protein Urine WBC (Auto) 01/21/20 01/21/20 01/22/20 16:22 21:17 01:28 WBC RBC 2.60 L Hgb 8.0 L Hct 23.3 L MCHC RDW Plt Count Lymph % (Auto) Lymph # Seg Neutrophils % 74.8 H Seg Neuts % (Manual) Lymphocytes % (Manual) Seg Neutrophils # Seg Neutrophils # Man Nucleated RBC % Lymphocytes # (Manual) Monocytes # (Manual) PT INR Heparin Anti-Xa Level POC ABG pO2 ABG pH ABG Hemoglobin ABG Oxyhemoglobin ABG pO2 ABG HCO3 ABG O2 Saturation ABG Base Excess Sodium Potassium Chloride Carbon Dioxide BUN Creatinine Glucose POC Glucose 177 H 67 L Lactic Acid Calcium AST Phosphorus Total Protein Albumin C-Reactive Protein Urine WBC (Auto) 01/22/20 01/22/20 01/22/20 01:28 01:28 12:06 WBC RBC Hgb Hct MCHC RDW Plt Count Lymph % (Auto) Lymph # Seg Neutrophils % Seg Neuts % (Manual) Lymphocytes % (Manual) Seg Neutrophils # Seg Neutrophils # Man Nucleated RBC % Lymphocytes # (Manual) Monocytes # (Manual) PT INR Heparin Anti-Xa Level POC ABG pO2 ABG pH ABG Hemoglobin ABG Oxyhemoglobin ABG pO2 ABG HCO3 ABG O2 Saturation ABG Base Excess Sodium Potassium Chloride 107.6 H Carbon Dioxide BUN Creatinine 0.4 L Glucose 152 H POC Glucose 203 H 140 H Lactic Acid Calcium 7.5 L AST Phosphorus Total Protein 4.0 L Albumin 2.0 L C-Reactive Protein Urine WBC (Auto) 01/22/20 01/22/20 01/23/20 16:24 22:55 06:10 WBC RBC 2.68 L Hgb 8.6 L Hct 24.1 L MCHC 36 H RDW Plt Count Lymph % (Auto) Lymph # Seg Neutrophils % Seg Neuts % (Manual) 71.0 H Lymphocytes % (Manual) Seg Neutrophils # Seg Neutrophils # Man Nucleated RBC % Lymphocytes # (Manual) Monocytes # (Manual) PT INR Heparin Anti-Xa Level POC ABG pO2 ABG pH ABG Hemoglobin ABG Oxyhemoglobin ABG pO2 ABG HCO3 ABG O2 Saturation ABG Base Excess Sodium Potassium Chloride Carbon Dioxide BUN Creatinine Glucose POC Glucose 205 H 196 H Lactic Acid Calcium AST Phosphorus Total Protein Albumin C-Reactive Protein Urine WBC (Auto) 01/23/20 01/23/20 01/23/20 06:10 07:35 11:59 WBC RBC Hgb Hct MCHC RDW Plt Count Lymph % (Auto) Lymph # Seg Neutrophils % Seg Neuts % (Manual) Lymphocytes % (Manual) Seg Neutrophils # Seg Neutrophils # Man Nucleated RBC % Lymphocytes # (Manual) Monocytes # (Manual) PT INR Heparin Anti-Xa Level POC ABG pO2 ABG pH ABG Hemoglobin ABG Oxyhemoglobin ABG pO2 ABG HCO3 ABG O2 Saturation ABG Base Excess Sodium Potassium Chloride 108.8 H Carbon Dioxide BUN Creatinine 0.4 L Glucose 105 H POC Glucose 111 H 123 H Lactic Acid Calcium 8.0 L AST Phosphorus Total Protein 4.9 L D Albumin 2.0 L C-Reactive Protein Urine WBC (Auto) 01/23/20 01/24/20 01/24/20 22:45 11:24 16:41 WBC RBC Hgb Hct MCHC RDW Plt Count Lymph % (Auto) Lymph # Seg Neutrophils % Seg Neuts % (Manual) Lymphocytes % (Manual) Seg Neutrophils # Seg Neutrophils # Man Nucleated RBC % Lymphocytes # (Manual) Monocytes # (Manual) PT INR Heparin Anti-Xa Level POC ABG pO2 ABG pH ABG Hemoglobin ABG Oxyhemoglobin ABG pO2 ABG HCO3 ABG O2 Saturation ABG Base Excess Sodium Potassium Chloride Carbon Dioxide BUN Creatinine Glucose POC Glucose 180 H 182 H 177 H Lactic Acid Calcium AST Phosphorus Total Protein Albumin C-Reactive Protein Urine WBC (Auto) 01/24/20 01/25/20 01/25/20 23:11 07:12 11:35 WBC RBC Hgb Hct MCHC RDW Plt Count Lymph % (Auto) Lymph # Seg Neutrophils % Seg Neuts % (Manual) Lymphocytes % (Manual) Seg Neutrophils # Seg Neutrophils # Man Nucleated RBC % Lymphocytes # (Manual) Monocytes # (Manual) PT INR Heparin Anti-Xa Level POC ABG pO2 ABG pH ABG Hemoglobin ABG Oxyhemoglobin ABG pO2 ABG HCO3 ABG O2 Saturation ABG Base Excess Sodium Potassium Chloride Carbon Dioxide BUN Creatinine Glucose POC Glucose 142 H 135 H 142 H Lactic Acid Calcium AST Phosphorus Total Protein Albumin C-Reactive Protein Urine WBC (Auto) 01/25/20 01/26/20 01/26/20 16:33 00:04 11:35 WBC RBC Hgb Hct MCHC RDW Plt Count Lymph % (Auto) Lymph # Seg Neutrophils % Seg Neuts % (Manual) Lymphocytes % (Manual) Seg Neutrophils # Seg Neutrophils # Man Nucleated RBC % Lymphocytes # (Manual) Monocytes # (Manual) PT INR Heparin Anti-Xa Level POC ABG pO2 ABG pH ABG Hemoglobin ABG Oxyhemoglobin ABG pO2 ABG HCO3 ABG O2 Saturation ABG Base Excess Sodium Potassium Chloride Carbon Dioxide BUN Creatinine Glucose POC Glucose 247 H 233 H 200 H Lactic Acid Calcium AST Phosphorus Total Protein Albumin C-Reactive Protein Urine WBC (Auto) 01/26/20 01/26/20 01/26/20 16:30 16:30 17:19 WBC RBC Hgb 7.4 L Hct 22.0 L MCHC RDW Plt Count Lymph % (Auto) Lymph # Seg Neutrophils % Seg Neuts % (Manual) Lymphocytes % (Manual) Seg Neutrophils # Seg Neutrophils # Man Nucleated RBC % Lymphocytes # (Manual) Monocytes # (Manual) PT 18.4 H INR 1.50 H Heparin Anti-Xa Level POC ABG pO2 ABG pH ABG Hemoglobin ABG Oxyhemoglobin ABG pO2 ABG HCO3 ABG O2 Saturation ABG Base Excess Sodium Potassium Chloride Carbon Dioxide BUN Creatinine Glucose POC Glucose 67 L Lactic Acid Calcium AST Phosphorus Total Protein Albumin C-Reactive Protein Urine WBC (Auto) 01/26/20 01/26/20 01/27/20 20:24 21:32 00:16 WBC RBC Hgb Hct MCHC RDW Plt Count Lymph % (Auto) Lymph # Seg Neutrophils % Seg Neuts % (Manual) Lymphocytes % (Manual) Seg Neutrophils # Seg Neutrophils # Man Nucleated RBC % Lymphocytes # (Manual) Monocytes # (Manual) PT INR Heparin Anti-Xa Level POC ABG pO2 51.8 L ABG pH ABG Hemoglobin 8.5 L ABG Oxyhemoglobin 84.7 L ABG pO2 ABG HCO3 ABG O2 Saturation ABG Base Excess Sodium Potassium Chloride Carbon Dioxide BUN Creatinine Glucose POC Glucose 162 H 141 H Lactic Acid Calcium AST Phosphorus Total Protein Albumin C-Reactive Protein Urine WBC (Auto) 01/27/20 01/27/20 01/27/20 01:42 02:18 05:57 WBC RBC Hgb Hct MCHC RDW Plt Count Lymph % (Auto) Lymph # Seg Neutrophils % Seg Neuts % (Manual) Lymphocytes % (Manual) Seg Neutrophils # Seg Neutrophils # Man Nucleated RBC % Lymphocytes # (Manual) Monocytes # (Manual) PT INR Heparin Anti-Xa Level 2.00 H POC ABG pO2 ABG pH ABG Hemoglobin ABG Oxyhemoglobin ABG pO2 ABG HCO3 ABG O2 Saturation ABG Base Excess Sodium Potassium Chloride Carbon Dioxide BUN Creatinine Glucose POC Glucose 183 H 124 H Lactic Acid Calcium AST Phosphorus Total Protein Albumin C-Reactive Protein Urine WBC (Auto) 01/27/20 01/27/20 01/27/20 06:30 06:30 12:23 WBC RBC 2.75 L Hgb 8.4 L Hct 24.9 L MCHC RDW 16.0 H Plt Count 474 H Lymph % (Auto) 12.7 L Lymph # Seg Neutrophils % 83.2 H Seg Neuts % (Manual) Lymphocytes % (Manual) Seg Neutrophils # 8.4 H Seg Neutrophils # Man Nucleated RBC % Lymphocytes # (Manual) Monocytes # (Manual) PT INR Heparin Anti-Xa Level POC ABG pO2 ABG pH ABG Hemoglobin ABG Oxyhemoglobin ABG pO2 ABG HCO3 ABG O2 Saturation ABG Base Excess Sodium Potassium 3.5 L Chloride 110.2 H Carbon Dioxide BUN Creatinine 0.4 L Glucose 101 H POC Glucose 126 H Lactic Acid Calcium 7.8 L AST Phosphorus Total Protein Albumin C-Reactive Protein Urine WBC (Auto) 01/27/20 01/27/20 01/28/20 17:31 23:40 00:00 WBC RBC Hgb Hct MCHC RDW Plt Count Lymph % (Auto) Lymph # Seg Neutrophils % Seg Neuts % (Manual) Lymphocytes % (Manual) Seg Neutrophils # Seg Neutrophils # Man Nucleated RBC % Lymphocytes # (Manual) Monocytes # (Manual) PT INR Heparin Anti-Xa Level 2.00 H POC ABG pO2 ABG pH ABG Hemoglobin ABG Oxyhemoglobin ABG pO2 ABG HCO3 ABG O2 Saturation ABG Base Excess Sodium Potassium Chloride Carbon Dioxide BUN Creatinine Glucose POC Glucose 133 H 136 H Lactic Acid Calcium AST Phosphorus Total Protein Albumin C-Reactive Protein Urine WBC (Auto) 01/28/20 01/28/20 01/28/20 04:26 04:26 05:35 WBC RBC Hgb 9.6 L Hct 28.5 L MCHC RDW Plt Count 508 H Lymph % (Auto) Lymph # Seg Neutrophils % Seg Neuts % (Manual) Lymphocytes % (Manual) Seg Neutrophils # Seg Neutrophils # Man Nucleated RBC % Lymphocytes # (Manual) Monocytes # (Manual) PT INR Heparin Anti-Xa Level POC ABG pO2 ABG pH ABG Hemoglobin ABG Oxyhemoglobin ABG pO2 ABG HCO3 ABG O2 Saturation ABG Base Excess Sodium Potassium Chloride Carbon Dioxide 19 L BUN 20 H Creatinine 0.5 L Glucose 103 H POC Glucose 135 H Lactic Acid Calcium 7.9 L AST Phosphorus Total Protein Albumin C-Reactive Protein Urine WBC (Auto) 01/28/20 01/28/20 01/28/20 08:50 11:10 11:51 WBC RBC Hgb Hct MCHC RDW Plt Count Lymph % (Auto) Lymph # Seg Neutrophils % Seg Neuts % (Manual) Lymphocytes % (Manual) Seg Neutrophils # Seg Neutrophils # Man Nucleated RBC % Lymphocytes # (Manual) Monocytes # (Manual) PT INR Heparin Anti-Xa Level 0.74 H POC ABG pO2 67.2 L ABG pH ABG Hemoglobin 9.3 L ABG Oxyhemoglobin ABG pO2 ABG HCO3 ABG O2 Saturation ABG Base Excess Sodium Potassium Chloride Carbon Dioxide BUN Creatinine Glucose POC Glucose 160 H Lactic Acid Calcium AST Phosphorus Total Protein Albumin C-Reactive Protein Urine WBC (Auto) 01/28/20 01/28/20 01/29/20 17:19 23:53 03:52 WBC RBC Hgb Hct MCHC RDW Plt Count Lymph % (Auto) Lymph # Seg Neutrophils % Seg Neuts % (Manual) Lymphocytes % (Manual) Seg Neutrophils # Seg Neutrophils # Man Nucleated RBC % Lymphocytes # (Manual) Monocytes # (Manual) PT INR Heparin Anti-Xa Level POC ABG pO2 ABG pH 7.510 H ABG Hemoglobin 7.3 L ABG Oxyhemoglobin ABG pO2 357.0 H ABG HCO3 19.6 L ABG O2 Saturation 99.6 H ABG Base Excess -2.9 L Sodium Potassium Chloride Carbon Dioxide BUN Creatinine Glucose POC Glucose 177 H 142 H Lactic Acid Calcium AST Phosphorus Total Protein Albumin C-Reactive Protein Urine WBC (Auto) 01/29/20 01/29/20 01/29/20 04:58 04:58 06:01 WBC 13.1 H RBC 2.75 L Hgb 8.6 L Hct 25.6 L MCHC RDW 17.7 H Plt Count Lymph % (Auto) Lymph # Seg Neutrophils % Seg Neuts % (Manual) 91.0 H Lymphocytes % (Manual) 6.0 L Seg Neutrophils # Seg Neutrophils # Man 11.9 H Nucleated RBC % 1.0 H Lymphocytes # (Manual) 0.8 L Monocytes # (Manual) PT INR Heparin Anti-Xa Level POC ABG pO2 ABG pH ABG Hemoglobin ABG Oxyhemoglobin ABG pO2 ABG HCO3 ABG O2 Saturation ABG Base Excess Sodium 148 H Potassium 3.5 L D Chloride 113.2 H Carbon Dioxide 21 L BUN 20 H Creatinine Glucose 137 H POC Glucose 167 H Lactic Acid Calcium 8.1 L AST Phosphorus Total Protein Albumin C-Reactive Protein Urine WBC (Auto) 01/29/20 01/29/20 01/29/20 11:45 17:52 23:49 WBC RBC Hgb Hct MCHC RDW Plt Count Lymph % (Auto) Lymph # Seg Neutrophils % Seg Neuts % (Manual) Lymphocytes % (Manual) Seg Neutrophils # Seg Neutrophils # Man Nucleated RBC % Lymphocytes # (Manual) Monocytes # (Manual) PT INR Heparin Anti-Xa Level POC ABG pO2 ABG pH ABG Hemoglobin ABG Oxyhemoglobin ABG pO2 ABG HCO3 ABG O2 Saturation ABG Base Excess Sodium Potassium Chloride Carbon Dioxide BUN Creatinine Glucose POC Glucose 185 H 226 H 141 H Lactic Acid Calcium AST Phosphorus Total Protein Albumin C-Reactive Protein Urine WBC (Auto) 01/29/20 01/30/20 01/30/20 Unknown 03:24 04:00 WBC RBC Hgb 7.8 L Hct 23.5 L MCHC RDW Plt Count Lymph % (Auto) Lymph # Seg Neutrophils % Seg Neuts % (Manual) Lymphocytes % (Manual) Seg Neutrophils # Seg Neutrophils # Man Nucleated RBC % Lymphocytes # (Manual) Monocytes # (Manual) PT INR Heparin Anti-Xa Level POC ABG pO2 ABG pH 7.485 H ABG Hemoglobin 6.7 L ABG Oxyhemoglobin ABG pO2 102.0 H ABG HCO3 ABG O2 Saturation ABG Base Excess Sodium Potassium Chloride Carbon Dioxide BUN Creatinine Glucose POC Glucose Lactic Acid Calcium AST Phosphorus Total Protein Albumin C-Reactive Protein 14.80 H Urine WBC (Auto) 01/30/20 01/30/20 01/30/20 05:50 11:15 17:07 WBC RBC Hgb Hct MCHC RDW Plt Count Lymph % (Auto) Lymph # Seg Neutrophils % Seg Neuts % (Manual) Lymphocytes % (Manual) Seg Neutrophils # Seg Neutrophils # Man Nucleated RBC % Lymphocytes # (Manual) Monocytes # (Manual) PT INR Heparin Anti-Xa Level POC ABG pO2 ABG pH ABG Hemoglobin ABG Oxyhemoglobin ABG pO2 ABG HCO3 ABG O2 Saturation ABG Base Excess Sodium Potassium Chloride Carbon Dioxide BUN Creatinine Glucose POC Glucose 122 H 207 H 124 H Lactic Acid Calcium AST Phosphorus Total Protein Albumin C-Reactive Protein Urine WBC (Auto) 01/30/20 01/31/20 01/31/20 17:08 00:10 04:52 WBC RBC Hgb Hct MCHC RDW Plt Count Lymph % (Auto) Lymph # Seg Neutrophils % Seg Neuts % (Manual) Lymphocytes % (Manual) Seg Neutrophils # Seg Neutrophils # Man Nucleated RBC % Lymphocytes # (Manual) Monocytes # (Manual) PT INR Heparin Anti-Xa Level POC ABG pO2 ABG pH 7.504 H 7.486 H ABG Hemoglobin 7.4 L 6.2 L ABG Oxyhemoglobin ABG pO2 169.2 H 121.7 H ABG HCO3 27.1 H ABG O2 Saturation 99.1 H ABG Base Excess 3.4 H Sodium Potassium Chloride Carbon Dioxide BUN Creatinine Glucose POC Glucose 191 H Lactic Acid Calcium AST Phosphorus Total Protein Albumin C-Reactive Protein Urine WBC (Auto) 01/31/20 01/31/20 01/31/20 05:37 11:59 12:40 WBC RBC 2.41 L Hgb 7.5 L Hct 22.3 L MCHC RDW 22.2 H Plt Count Lymph % (Auto) Lymph # Seg Neutrophils % Seg Neuts % (Manual) 94.0 H Lymphocytes % (Manual) 2.0 L Seg Neutrophils # Seg Neutrophils # Man 9.4 H Nucleated RBC % Lymphocytes # (Manual) 0.2 L Monocytes # (Manual) PT INR Heparin Anti-Xa Level POC ABG pO2 ABG pH ABG Hemoglobin ABG Oxyhemoglobin ABG pO2 ABG HCO3 ABG O2 Saturation ABG Base Excess Sodium Potassium Chloride Carbon Dioxide BUN Creatinine Glucose POC Glucose 175 H 220 H Lactic Acid Calcium AST Phosphorus Total Protein Albumin C-Reactive Protein Urine WBC (Auto) 01/31/20 01/31/20 01/31/20 12:40 14:40 18:18 WBC RBC Hgb Hct MCHC RDW Plt Count Lymph % (Auto) Lymph # Seg Neutrophils % Seg Neuts % (Manual) Lymphocytes % (Manual) Seg Neutrophils # Seg Neutrophils # Man Nucleated RBC % Lymphocytes # (Manual) Monocytes # (Manual) PT INR Heparin Anti-Xa Level POC ABG pO2 124.7 H ABG pH 7.542 H ABG Hemoglobin 7.8 L ABG Oxyhemoglobin ABG pO2 ABG HCO3 ABG O2 Saturation ABG Base Excess Sodium 151 H Potassium 2.1 L* D Chloride 108.9 H Carbon Dioxide BUN 22 H Creatinine Glucose 194 H POC Glucose 181 H Lactic Acid Calcium 8.1 L AST Phosphorus Total Protein 4.8 L Albumin 2.3 L C-Reactive Protein Urine WBC (Auto) 02/01/20 02/01/20 02/01/20 00:11 03:14 04:32 WBC 11.9 H RBC 2.47 L Hgb 7.6 L Hct 22.8 L MCHC RDW 22.7 H Plt Count Lymph % (Auto) Lymph # Seg Neutrophils % Seg Neuts % (Manual) 90.0 H Lymphocytes % (Manual) 5.0 L Seg Neutrophils # Seg Neutrophils # Man 10.7 H Nucleated RBC % Lymphocytes # (Manual) 0.6 L Monocytes # (Manual) PT INR Heparin Anti-Xa Level POC ABG pO2 ABG pH 7.564 H ABG Hemoglobin 7.6 L ABG Oxyhemoglobin ABG pO2 124.1 H ABG HCO3 29.6 H ABG O2 Saturation ABG Base Excess 7.0 H Sodium Potassium Chloride Carbon Dioxide BUN Creatinine Glucose POC Glucose 190 H Lactic Acid Calcium AST Phosphorus Total Protein Albumin C-Reactive Protein Urine WBC (Auto) 02/01/20 02/01/20 02/01/20 04:32 05:28 11:56 WBC RBC Hgb Hct MCHC RDW Plt Count Lymph % (Auto) Lymph # Seg Neutrophils % Seg Neuts % (Manual) Lymphocytes % (Manual) Seg Neutrophils # Seg Neutrophils # Man Nucleated RBC % Lymphocytes # (Manual) Monocytes # (Manual) PT INR Heparin Anti-Xa Level POC ABG pO2 ABG pH ABG Hemoglobin ABG Oxyhemoglobin ABG pO2 ABG HCO3 ABG O2 Saturation ABG Base Excess Sodium 149 H Potassium 2.6 L* D Chloride Carbon Dioxide 33 H BUN 23 H Creatinine 0.5 L Glucose 174 H POC Glucose 187 H 195 H Lactic Acid Calcium 8.0 L AST Phosphorus 1.60 L Total Protein Albumin C-Reactive Protein Urine WBC (Auto) 02/01/20 02/01/20 02/02/20 18:15 23:35 04:33 WBC RBC Hgb Hct MCHC RDW Plt Count Lymph % (Auto) Lymph # Seg Neutrophils % Seg Neuts % (Manual) Lymphocytes % (Manual) Seg Neutrophils # Seg Neutrophils # Man Nucleated RBC % Lymphocytes # (Manual) Monocytes # (Manual) PT INR Heparin Anti-Xa Level POC ABG pO2 ABG pH 7.549 H ABG Hemoglobin 9.8 L ABG Oxyhemoglobin ABG pO2 ABG HCO3 ABG O2 Saturation ABG Base Excess Sodium Potassium Chloride Carbon Dioxide BUN Creatinine Glucose POC Glucose 226 H 252 H Lactic Acid Calcium AST Phosphorus Total Protein Albumin C-Reactive Protein Urine WBC (Auto) 02/02/20 02/02/20 02/02/20 05:25 05:25 05:40 WBC 15.5 H RBC 2.43 L Hgb 7.6 L Hct 22.9 L MCHC RDW 23.6 H Plt Count Lymph % (Auto) Lymph # Seg Neutrophils % Seg Neuts % (Manual) 89.0 H Lymphocytes % (Manual) 3.0 L Seg Neutrophils # Seg Neutrophils # Man 13.8 H Nucleated RBC % Lymphocytes # (Manual) 0.5 L Monocytes # (Manual) 0.9 H PT INR Heparin Anti-Xa Level POC ABG pO2 ABG pH ABG Hemoglobin ABG Oxyhemoglobin ABG pO2 ABG HCO3 ABG O2 Saturation ABG Base Excess Sodium Potassium 2.6 L* Chloride Carbon Dioxide 33 H BUN 26 H Creatinine Glucose 175 H POC Glucose 181 H Lactic Acid Calcium 7.9 L AST Phosphorus Total Protein Albumin C-Reactive Protein Urine WBC (Auto) 02/02/20 02/02/20 02/02/20 11:55 14:45 17:18 WBC RBC Hgb Hct MCHC RDW Plt Count Lymph % (Auto) Lymph # Seg Neutrophils % Seg Neuts % (Manual) Lymphocytes % (Manual) Seg Neutrophils # Seg Neutrophils # Man Nucleated RBC % Lymphocytes # (Manual) Monocytes # (Manual) PT INR Heparin Anti-Xa Level POC ABG pO2 ABG pH 7.56 H ABG Hemoglobin 7.6 L ABG Oxyhemoglobin ABG pO2 ABG HCO3 ABG O2 Saturation ABG Base Excess Sodium Potassium Chloride Carbon Dioxide BUN Creatinine Glucose POC Glucose 226 H 227 H Lactic Acid Calcium AST Phosphorus Total Protein Albumin C-Reactive Protein Urine WBC (Auto) 02/02/20 02/03/20 02/03/20 20:54 00:02 05:14 WBC 18.7 H RBC 2.45 L Hgb 7.6 L Hct 23.2 L MCHC RDW 23.5 H Plt Count Lymph % (Auto) Lymph # Seg Neutrophils % Seg Neuts % (Manual) 94.0 H Lymphocytes % (Manual) 3.0 L Seg Neutrophils # Seg Neutrophils # Man 17.6 H Nucleated RBC % Lymphocytes # (Manual) 0.6 L Monocytes # (Manual) PT INR Heparin Anti-Xa Level POC ABG pO2 ABG pH ABG Hemoglobin ABG Oxyhemoglobin ABG pO2 ABG HCO3 ABG O2 Saturation ABG Base Excess Sodium Potassium 3.2 L D Chloride Carbon Dioxide BUN Creatinine Glucose POC Glucose 204 H Lactic Acid Calcium AST Phosphorus Total Protein Albumin C-Reactive Protein Urine WBC (Auto) 02/03/20 02/03/20 05:14 05:20 WBC RBC Hgb Hct MCHC RDW Plt Count Lymph % (Auto) Lymph # Seg Neutrophils % Seg Neuts % (Manual) Lymphocytes % (Manual) Seg Neutrophils # Seg Neutrophils # Man Nucleated RBC % Lymphocytes # (Manual) Monocytes # (Manual) PT INR Heparin Anti-Xa Level POC ABG pO2 ABG pH ABG Hemoglobin ABG Oxyhemoglobin ABG pO2 ABG HCO3 ABG O2 Saturation ABG Base Excess Sodium Potassium 3.1 L Chloride Carbon Dioxide 33 H BUN 29 H Creatinine 0.5 L Glucose 160 H POC Glucose 146 H Lactic Acid Calcium 7.9 L AST Phosphorus Total Protein 4.8 L Albumin 2.4 L C-Reactive Protein Urine WBC (Auto) Chest x-ray: other (none today) Allied health notes reviewed: nursing
[2020-02-03] MEDS: POTASSIUM CHLORIDE 20 MEQ PACKET FEEDTUBE SCH ×2 (11:43→13:12)
[2020-02-03] MEDS: FAMOTIDINE 20 MG TAB PO SCH ×2 (11:43→22:16)
[2020-02-03] MEDS: HEPARIN 5,000 UNIT/1 ML VIAL SUB-Q SCH ×2 (11:43→22:16)
[2020-02-03] MEDS: MEGESTROL 400 MG/10 ML ORAL LIQD PO SCH (11:44)
--- NOTE | 2020-02-03 18:19 | Progress Note ---
Assessment and Plan Assessment and plan: --Acute respiratory failure, status post extubation 02/02/2020 Continue Ventimask, wean oxygen as tolerated Pulmonary critical following Hydropneumothorax, and recurrent left pleural effusion s/p chest tube - improved o2 saturation, chest tube removed on 01/22 Remains intubated on vent, extubated 02/02/20, on Ventimask --Shock/ septic shock Remains on Levophed, wean as tolerated --Persistent severe hypokalemia; potassium today is 2.6 Replenished with 40 mEq KCl IV x1 40 mEq of oral KCl every 3 hours x2 via [place], Check magnesium, hold Lasix --Hypophosphatemia; Replenished with potassium phosphate IV Closely monitor electrolytes -- s/p PEA cardiac arrest CPR per ACLS protocol with ROSC Check code record Intubated on vent, now extubated -- Hydropneumothorax, not POA Patient developed hydropneumothorax on 01/15. Surgery evaluated s/p chest tube placed on 01/15. Improved, s/p chest tube removed 01/22, extubated 02/02/2020 -- large Left pleural effusion 01/25 Continue supportive care, pulmonary following -- Hypernatremia, Resolved -- Sepsis, likely UTI and infected Sacral decubitus ulcer On zosyn now, cont to Monitor vital signs closely -- UTI (urinary tract infection) Completed antibiotics --h/o Bilateral pulmonary embolism Had pulmonary embolism 7 months ago. CTA chest and LE doppler showed no acute PE or DVT eliquis now stopped --Sacral decubitus ulcer, infected/POA s/p wound debridement on 01/15. Wound vac in place ID recommend cont zosyn 4.5 g IV q8h total 6 weeks stop date 02/27/2020 -- Uncontrolled diabetes mellitus DM management with SSI, TF -- Dementia: Continue donepezil --Severe protein-calorie malnutrition She is not eating well and is getting feeds through the NG tube. Discussed with - this problem has been chronic agreed for PEG PEG placed 01/13. Now on tube feeds --DVT prophylaxis heparin drip for PE treatment Will contact patient's today unable to reach him left voicemail to call back The high probability of a clinically significant, sudden or life threatening deterioration of the [Respiratory, REGIONAL ADMINISTRATIVE ASSISTANT, CVs] system(s) required my full and direct attention, intervention and personal management. The aggregate critical care time was [32] minutes. This time is in addition to time spent performing reported procedures but includes the following: [x] Data Review and interpretation [x] Patient assessment and monitoring of vital signs [x] Documentation [x] Medication orders and management Monitor closely and adjust management as needed Plan of care reviewed with the patient's nurse Patient may be transferred out of ICU to [facility] Plan of care reviewed with the patient's nurse 02/02; patient was extubated on 02/02/2020, currently on Ventimask History Interval history: Seen and examined the patient at the bedside this morning Patient's chart and medications reviewed Patient was extubated yesterday 02/02/2020 Now on Ventimask, noncommunicative Opening eyes spontaneously Vital signs noted Hospitalist Physical - Constitutional Vitals: Temp Pulse Resp BP Pulse Ox 97.8 F 106 H 24 140/68 90 02/03/20 03:27 02/03/20 17:30 02/03/20 17:30 02/03/20 17:30 02/03/20 17:30 General appearance: Present: mild distress, well-nourished, other (On Ventimask) - EENT Eyes: Present: PERRL, EOM intact - Neck Neck: Present: supple, normal ROM - Respiratory Respiratory effort: normal Respiratory: bilateral: diminished, negative: rales, rhonchi, wheezing - Cardiovascular Rhythm: regular Heart Sounds: Present: S1 & S2 - Extremities Extremities: no ischemia, No edema Peripheral Pulses: within normal limits - Abdominal General gastrointestinal: soft, non-tender, non-distended, normal bowel sounds - Integumentary Integumentary: Present: clear, warm - Psychiatric Psychiatric: other (Ventimask extubated) - Neurologic Neurologic: other (Extubated on Ventimask noncommunicative) Results - Labs CBC & Chem 7: 02/03/20 05:14 02/03/20 05:14 Labs: Laboratory Last Values WBC 18.7 K/mm3 (4.5-11.0) H 02/03/20 05:14 RBC 2.45 M/mm3 (3.65-5.03) L 02/03/20 05:14 Hgb 7.6 gm/dl (10.1-14.3) L 02/03/20 05:14 Hct 23.2 % (30.3-42.9) L 02/03/20 05:14 MCV 95 fl (79-97) 02/03/20 05:14 MCH 31 pg (28-32) 02/03/20 05:14 MCHC 33 % (30-34) 02/03/20 05:14 RDW 23.5 % (13.2-15.2) H 02/03/20 05:14 Plt Count 272 K/mm3 (140-440) 02/03/20 05:14 Lymph % (Auto) 12.7 % (13.4-35.0) L 01/27/20 06:30 [place] % (Auto) 3.9 % (0.0-7.3) 01/27/20 06:30 Eos % (Auto) 0.1 % (0.0-4.3) 01/27/20 06:30 Baso % (Auto) 0.1 % (0.0-1.8) 01/27/20 06:30 Lymph # 1.3 K/mm3 (1.2-5.4) 01/27/20 06:30 [place] # 0.4 K/mm3 (0.0-0.8) 01/27/20 06:30 Eos # 0.0 K/mm3 (0.0-0.4) 01/27/20 06:30 Baso # 0.0 K/mm3 (0.0-0.1) 01/27/20 06:30 Add Manual Diff Complete 02/03/20 05:14 Total Counted 100 02/03/20 05:14 Seg Neutrophils % Yarding Supervisor 02/03/20 05:14 Seg Neutrophils # 8.4 K/mm3 (1.8-7.7) H 01/27/20 06:30 Seg Neuts % (Manual) 94.0 % (40.0-70.0) H 02/03/20 05:14 Band Neutrophils % 0 % 02/03/20 05:14 Lymphocytes % (Manual) 3.0 % (13.4-35.0) L 02/03/20 05:14 Reactive Lymphs % (Man) 0 % 02/03/20 05:14 Monocytes % (Manual) 3.0 % (0.0-7.3) 02/03/20 05:14 Eosinophils % (Manual) 0 % (0.0-4.3) 02/03/20 05:14 Basophils % (Manual) 0 % (0.0-1.8) 02/03/20 05:14 Metamyelocytes % 0 % 02/03/20 05:14 Myelocytes % 0 % 02/03/20 05:14 Promyelocytes % 0 % 02/03/20 05:14 Blast Cells % 0 % 02/03/20 05:14 Nucleated RBC % Not Reportable 02/03/20 05:14 Seg Neutrophils # Man 17.6 K/mm3 (1.8-7.7) H 02/03/20 05:14 Band Neutrophils # 0.0 K/mm3 02/03/20 05:14 Lymphocytes # (Manual) 0.6 K/mm3 (1.2-5.4) L 02/03/20 05:14 Abs React Lymphs (Man) 0.0 K/mm3 02/03/20 05:14 Monocytes # (Manual) 0.6 K/mm3 (0.0-0.8) 02/03/20 05:14 Eosinophils # (Manual) 0.0 K/mm3 (0.0-0.4) 02/03/20 05:14 Basophils # (Manual) 0.0 K/mm3 (0.0-0.1) 02/03/20 05:14 Metamyelocytes # 0.0 K/mm3 02/03/20 05:14 Myelocytes # 0.0 K/mm3 02/03/20 05:14 Promyelocytes # 0.0 K/mm3 02/03/20 05:14 Blast Cells # 0.0 K/mm3 02/03/20 05:14 WBC Morphology Not Reportable 02/03/20 05:14 Hypersegmented Neuts Not Reportable 02/03/20 05:14 Hyposegmented Neuts Not Reportable 02/03/20 05:14 Hypogranular Neuts Not Reportable 02/03/20 05:14 Smudge Cells Not Reportable 02/03/20 05:14 Toxic Granulation Not Reportable 02/03/20 05:14 Toxic Vacuolation Not Reportable 02/03/20 05:14 Dohle Bodies Not Reportable 02/03/20 05:14 Pelger-Huet Anomaly Not Reportable 02/03/20 05:14 Lata Rods Not Reportable 02/03/20 05:14 Platelet Estimate Consistent w auto 02/03/20 05:14 Clumped Platelets Not Reportable 02/03/20 05:14 Plt Clumps, EDTA Not Reportable 02/03/20 05:14 Large Platelets Not Reportable 02/03/20 05:14 Giant Platelets Not Reportable 02/03/20 05:14 Platelet Satelliting Not Reportable 02/03/20 05:14 Plt Morphology Comment Not Reportable 02/03/20 05:14 RBC Morphology Not Reportable 02/03/20 05:14 Dimorphic RBCs Not Reportable 02/03/20 05:14 Polychromasia Rare 02/03/20 05:14 Hypochromasia 2+ 02/03/20 05:14 Poikilocytosis Few 02/03/20 05:14 Anisocytosis 2+ 02/03/20 05:14 Microcytosis Not Reportable 02/03/20 05:14 Macrocytosis Not Reportable 02/03/20 05:14 Spherocytes Not Reportable 02/03/20 05:14 Pappenheimer Bodies Not Reportable 02/03/20 05:14 Sickle Cells Not Reportable 02/03/20 05:14 Target Cells Few 02/03/20 05:14 Tear Drop Cells Not Reportable 02/03/20 05:14 Ovalocytes Few 02/03/20 05:14 Helmet Cells Not Reportable 02/03/20 05:14 Lombardi-[place] Bodies Not Reportable 02/03/20 05:14 Roann Rings Not Reportable 02/03/20 05:14 Jackson Cells Few 02/03/20 05:14 Bite Cells Not Reportable 02/03/20 05:14 Crenated Cell Not Reportable 02/03/20 05:14 Elliptocytes Not Reportable 02/03/20 05:14 Acanthocytes (Spur) Not Reportable 02/03/20 05:14 Rouleaux Not Reportable 02/03/20 05:14 Hemoglobin C Crystals Not Reportable 02/03/20 05:14 Schistocytes Few 02/03/20 05:14 Malaria parasites Not Reportable 02/03/20 05:14 Gideon Bodies Not Reportable 02/03/20 05:14 Hem Pathologist Commnt No 02/03/20 05:14 APTT 33.9 Sec. (24.2-36.6) 01/26/20 16:30 PT 14.4 Sec. (12.2-14.9) 02/02/20 05:25 INR 1.11 (0.87-1.13) 02/02/20 05:25 Heparin Anti-Xa Level 0.74 U.I./ml (0.3-0.7) H 01/28/20 08:50 ABG pH 7.56 (7.320-7.450) H 02/02/20 14:45 POC ABG pCO2 39.4 mmHg (32.0-48.0) 02/02/20 14:45 ABG pCO2 33.6 mm Hg 02/01/20 03:14 POC ABG pO2 98.6 mmHg (83-108) 02/02/20 14:45 ABG pO2 124.1 mm Hg (80.0-90.0) H 02/01/20 03:14 POC ABG HCO3 34.5 02/02/20 14:45 ABG HCO3 29.6 mmol/L (20.0-26.0) H 02/01/20 03:14 ABG O2 Saturation 98.7 % (95.0-99.0) 02/01/20 03:14 ABG O2 Content 10.6 (0.0-44) 02/01/20 03:14 POC ABG Base Excess 11.3 02/02/20 14:45 ABG Base Excess 7.0 mmol/L (-2.0-3.0) H 02/01/20 03:14 ABG Hemoglobin 7.6 (12.0-17.5) L 02/02/20 14:45 ABG Oxyhemoglobin 96.7 (94-98) 02/02/20 14:45 ABG Carboxyhemoglobin 1.4 % (0.0-5.0) 02/01/20 03:14 ABG Methemoglobin 0.3 (0.0-1.5) 02/02/20 14:45 Oxyhemoglobin 96.6 % (95.0-99.0) 02/01/20 03:14 Carboxyhemoglobin 1.0 (0.5-1.5) 02/02/20 14:45 FiO2 25 02/02/20 14:45 Sodium 144 mmol/L (137-145) 02/03/20 05:14 Potassium 3.1 mmol/L (3.6-5.0) L 02/03/20 05:14 Chloride 100.5 mmol/L (98-107) 02/03/20 05:14 Carbon Dioxide 33 mmol/L (22-30) H 02/03/20 05:14 Anion Gap 14 mmol/L 02/03/20 05:14 BUN 29 mg/dL (7-17) H 02/03/20 05:14 Creatinine 0.5 mg/dL (0.6-1.2) L 02/03/20 05:14 Estimated GFR > 60 ml/min 02/03/20 05:14 BUN/Creatinine Ratio 58 % 02/03/20 05:14 Glucose 160 mg/dL (65-100) H 02/03/20 05:14 POC Glucose 248 (70-105) H 02/03/20 18:14 Hemoglobin A1c 5.3 % (4-6) 01/11/20 00:45 Lactic Acid 1.30 mmol/L (0.7-2.0) 01/26/20 23:27 Calcium 7.9 mg/dL (8.4-10.2) L 02/03/20 05:14 Phosphorus 2.30 mg/dL (2.5-4.5) L 02/03/20 05:14 Magnesium 1.80 mg/dL (1.7-2.3) 02/02/20 09:10 Total Bilirubin 0.20 mg/dL (0.1-1.2) 02/03/20 05:14 AST 21 units/L (5-40) 02/03/20 05:14 ALT 22 units/L (7-56) 02/03/20 05:14 Alkaline Phosphatase 62 units/L (35-129) 02/03/20 05:14 C-Reactive Protein 14.80 mg/dL (0.00-1.30) H 01/29/20 Unknown Total Protein 4.8 g/dL (6.3-8.2) L 02/03/20 05:14 Albumin 2.4 g/dL (3.9-5) L 02/03/20 05:14 Albumin/Globulin Ratio 1.0 % 02/03/20 05:14 TSH 2.440 mlU/mL (0.270-4.200) 01/10/20 10:10 Procalcitonin 1.86 ng/mL (<0.15) 01/29/20 Unknown Urine Color Cordelia (Yellow) 01/08/20 Unknown Urine Turbidity Cloudy (Clear) 01/08/20 Unknown Urine pH 5.0 (5.0-7.0) 01/08/20 Unknown Ur Specific [place] 1.018 (1.003-1.030) 01/08/20 Unknown Urine Protein 30 mg/dl mg/dL (Negative) 01/08/20 Unknown Urine Glucose (UA) Neg mg/dL (Negative) 01/08/20 Unknown Urine Ketones Neg mg/dL (Negative) 01/08/20 Unknown Urine Blood Mod (Negative) 01/08/20 Unknown Urine Nitrite Neg (Negative) 01/08/20 Unknown Urine Bilirubin Neg (Negative) 01/08/20 Unknown Urine Urobilinogen < 2.0 mg/dL (<2.0) 01/08/20 Unknown Ur Leukocyte Esterase Sm (Negative) 01/08/20 Unknown Urine WBC (Auto) 11.0 /HPF (0.0-6.0) H 01/08/20 Unknown Urine RBC (Auto) 7.0 /HPF (0.0-6.0) 01/08/20 Unknown U Epithel Cells (Auto) < 1.0 /HPF (0-13.0) 01/08/20 Unknown Urine Bacteria (Auto) 1+ /HPF (Negative) 01/08/20 Unknown Urine Mucus 2+ /HPF 01/08/20 Unknown Urine Yeast (Budding) 1+ /HPF 01/08/20 Unknown Vancomycin Trough 7.9 ug/mL (5.0-20.0) 01/17/20 16:04 Mejía/IV: Voiding Method Incontinent IV Catheter Type [Left Upper PICC Line arm] IV Catheter Type [Right Upper INT / Saline Lock arm] IV Catheter Type [Right Peripheral IV Forearm] Active Medications - Current Medications Current Medications: Generic Name Dose Route Start Last Admin Trade Name Freq PRN Reason Stop Dose Admin Acetaminophen 650 mg 01/08/20 23:14 01/18/20 06:03 Tylenol PO 650 mg Q4H PRN Administration Pain MILD(1-3)/Fever >100.5/GARCIA Lipase/Protease/Amylase 1 each 01/17/20 08:[address] 10,500 Unit FEEDTUBE PRN PRN For Clogged Feeding Tube Atorvastatin Calcium 10 mg 01/09/20 22:00 02/02/20 21:37 Atorvastatin PO 10 mg QHS BRO Administration Dextrose 0 ml 01/08/20 23:14 01/26/20 17:44 D50w (25gm) Syringe IV 25 ml Q30MIN PRN Administration Hypoglycemia Protocol Donepezil HCl 10 mg 01/09/20 22:00 02/02/20 21:27 Aricept PO 10 mg QHS BRO Administration Famotidine 20 mg 01/27/20 10:00 02/03/20 11:43 Pepcid PO 20 mg BID BRO Administration Fluticasone Propionate 100 mcg 01/25/20 20:00 01/26/20 06:09 Flonase NS 100 mcg QDAY PRN Administration Nasal Congestion Heparin Sodium (Porcine) 5,000 unit 01/28/20 10:00 02/03/20 11:43 Heparin SUB-Q 5,000 unit Q12HR BRO Administration Hydrocortisone Sodium Succinate 50 mg 02/03/20 06:00 02/03/20 13:12 Solu-Cortef IV 02/03/20 22:01 50 mg Q8HR BRO Administration Hydrocortisone Sodium Succinate 25 mg 02/04/20 10:00 Solu-Cortef IV 02/04/20 22:01 Q12HR BRO Hydrophilic Ointment 1 applic 01/28/20 10:57 Vaseline Lip Therapy TP Q2HR PRN Dry Lips Piperacillin Sod/Tazobactam Sod 4.5 gm in 100 mls @ 200 mls/hr 01/19/20 14:00 02/03/20 13:11 Zosyn/Ns 4.5gm/100ml IV 02/27/20 22:29 200 mls/hr Q8HR BRO Administration Protocol Norepinephrine 4 mg in 250 mls @ 7.5 mls/hr 01/26/20 20:00 01/30/20 06:00 Levophed Drip 4 Mg/Ns 250 Ml IV 3 mcg/min TITR BRO 11.25 mls/hr Titration Protocol 2 MCG/MIN Insulin Human Regular 0 unit 01/27/20 12:00 02/03/20 13:13 Humulin R SUB-Q 4 unit Q6HR BRO Administration Protocol Magnesium Hydroxide 30 ml 01/08/20 23:14 Milk Of Magnesia PO Q4H PRN Constipation Megestrol Acetate 400 mg 01/12/20 11:00 02/03/20 11:44 Megestrol PO 400 mg QDAY BRO Administration Mirtazapine 15 mg 01/09/20 22:00 02/02/20 21:37 Remeron PO 15 mg QHS BRO Administration Multi-Ingred Cream/Lotion/Oil/Oint 1 applic 01/28/20 10:57 Artificial Tears Ophth Oint OU Q4HR PRN Dry Eye(s) Ondansetron HCl 4 mg 01/08/20 23:14 Zofran IV Q8H PRN Nausea And Vomiting Scopolamine 1 each 02/05/20 10:00 Transderm-Scop TD Q3D BRO Simple Syrup 15 ml 01/17/20 08:37 Simple Syrup FEEDTUBE PRN PRN Hypoglycemia Simple Syrup 30 ml 01/17/20 08:37 Simple Syrup FEEDTUBE PRN PRN Hypoglycemia Sodium Bicarbonate 325 mg 01/17/20 08:37 Sodium Bicarbonate FEEDTUBE PRN PRN For Clogged Feeding Tube Sodium Chloride 10 ml 01/09/20 10:00 02/03/20 11:43 Sodium Chloride Flush Syringe 10 Ml IV 10 ml BID BRO Administration Sodium Chloride 10 ml 01/08/20 23:14 Sodium Chloride Flush Syringe 10 Ml IV PRN PRN LINE FLUSH Trazodone HCl 25 mg 01/09/20 22:00 02/02/20 21:26 Desyrel PO 25 mg QHS RBO Administration Nutrition/Malnutrition Assess - Dietary Evaluation Nutrition/Malnutrition Findings: Nutrition Notes Start: 01/09/20 12:13 Freq: Status: Active Protocol: Document 02/03/20 11:26 [email or web address] (Rec: 02/03/20 13:23 [email or web address]) Co-Sign 02/03/20 11:26 NHALL Nutrition Notes Initial or Follow up Reassessment Current Diagnosis Decubitus(Pressure Ulcer), Diabetes,Sepsis Other Pertinent Diagnosis UTI, dementia, PE, Sacral wound Current Diet Vital AF 1.2 at 50ml/hr Labs/Tests K 3.1 BUN 29 BG 160 Pertinent Medications Solucortef KCl 20mEq Height 5 ft 2 in Weight 65 kg [place] Body Weight (kg) 50.00 BMI 26.2 Weight change and time frame Wt change noted. Pt has edema Subjective/Other Information F/U for TF tolerance. Pt extubated yesterday. No TF running at time of visit. Per RN, TF running at goal rate Burn Absent Trauma Absent Current % PO Negligible Minimum of two criteria Yes Fluid Accumulation Moderate to Severe (severe) Reduced Director Of [employer] Strength Measurably Reduced (severe) #3 Nutrition Diagnosis Malnutrition Diagnosis Progress(for reassessment Continues documentation) #2 Nutrition Diagnosis Inadequate oral intake Diagnosis Progress(for reassessment Continues documentation) #1 Nutrition Diagnosis Increased nutrient needs ( specify in comment below) Diagnosis Progress(for reassessment Continues documentation) Is patient on ventilator? No Is Patient Ambulatory and/or Out of Bed No REE-([place]-St. Jeor-confined to bed) 1353.840 Kcal/Kg value to use for calculation 24 Approximate Energy Requirements Using 1560 kcal/Kg Calculation Used for Recommendations Kcal/kg Additional Notes Protein Needs: 81-98g(1.25-1.5 ) Fluid Needs: 1ml/kcal Nutrition Intervention Change Diet Order: Continue Nutrition Support: Vital AF 1.2 at 50ml/hr Flush 200ml q4h per MD Kcal 1,440 Protein (gm) 90 Fluid (mL) 973 Goal #1 Meet at least 80% of kcal and protein needs via TF Goal #2 TF tolerance Goal #3 Wound Healing Anticipated Discharge Needs: Continue TF Follow-Up By: 02/10/20 Additional Comments F/U TF tolerance
[2020-02-03] MEDS: DONEPEZIL 10 MG TAB PO SCH (22:25)
[2020-02-03] MEDS: MIRTAZAPINE 15 MG TAB PO SCH (22:26)
[2020-02-03] MEDS ORDERED: FUROSEMIDE 40 MG/4 ML INJ IV ONE (22:59)
[2020-02-04] MEDS: traZODone 50 MG TAB PO SCH ×2 (02:11→21:04)
[2020-02-04] MEDS: INSULIN REGULAR, HUMAN 100 UNIT/ML 3ML VIAL SUB-Q SCH ×3 (05:49→18:08)
[2020-02-04] MEDS: PIPERACIL/TAZOBACTA 4.5/NS 100 4.5 GM/100 ML VIAL IV SCH ×3 (05:50→21:07)
[2020-02-04] MEDS: DEXTROSE 50% IN WATER (25GM) 50 ML SYRINGE IV PRN (06:12)
[2020-02-04] MEDS: FAMOTIDINE 20 MG TAB PO SCH ×2 (10:48→21:03)
[2020-02-04] MEDS: MEGESTROL 400 MG/10 ML ORAL LIQD PO SCH (10:48)
[2020-02-04] MEDS: HYDROCORTISONE SOD SUCC 100 MG/2 ML VIAL IV SCH ×2 (10:48→21:06)
[2020-02-04] MEDS: HEPARIN 5,000 UNIT/1 ML VIAL SUB-Q SCH ×2 (10:50→21:04)
--- NOTE | 2020-02-04 13:43 | Progress Note ---
Assessment and Plan Patient weak, sleeping at this time. Not responding to verbal stimuli. Patient is on BIPAP 12/6, rate 16, FIO2 50%. O2 saturation running 95%. Patient has some increase in work of breathing. Increased IPAP to 18 and increased EPAP to 8. Pa ho work of breathing improved. Obtaining blood gases. Chest xray done on 02/03/20 reported No significant pulmonary or pleural abnormality. No pneumothorax. Stable elevation left hemidiaphragm. No acute findings. Patient afebrile and has leukocytosis. Patient is on Zosyn. Patient is on S/C Heparin and famotidine. Recommend aerosolized bronchodilators. I spent critical care time of 45 minutes on this patient reviewing the chart, examining the patient, review chest xray and lab results, talking to the respiratory therapist, nursing staff and work out plan of treatment on this critically ill patient. - Patient Problems (1) Hydropneumothorax Current Visit: Yes Status: Acute Plan to address problem: Repeat chest xray reported no pneumothorax. (2) Sacral decubitus ulcer Current Visit: Yes Status: Acute Plan to address problem: Patient is on zosyn. Management as per primary care and infectious diseases. (3) Sepsis Current Visit: Yes Status: Acute Qualifiers: Sepsis type: sepsis due to unspecified organism Sepsis acute organ dysfunction status: unspecified Qualified Code(s): A41.9 - Sepsis, unspecified organism Plan to address problem: Patient is on Zosyn. (4) Altered mental status Current Visit: Yes Status: Acute Qualifiers: Altered mental status type: disorientation Qualified Code(s): R41.0 - Disorientation, unspecified Plan to address problem: Management as per primary care. (5) Acute respiratory failure Current Visit: Yes Status: Acute Plan to address problem: BIPAP 19/8, rate 16, FIO2 50% ABGs on BIPAP. Albuterol/atrovent aerosol treatments q 6 hours. Continue Zosyn Continue S/C Heparin. Continue Famotidine. Subjective Date of service: 02/04/20 Principal diagnosis: Septic Shock; S/P Cardiac Arrest; Ac. hypoxemic resp failure; UTI Interval history: Patient weak, sleeping at this time. Not responding to verbal stimuli. Patient is on BIPAP 12/6, rate 16, FIO2 50%. O2 saturation running 95%. Patient has some increase in work of breathing. Increased IPAP to 18 and increased EPAP to 8. Patients work of breathing improved. Obtaining blood gases. Chest xray done on 02/03/20 reported No significant pulmonary or pleural abnormality. No pne umothorax. Stable elevation left hemidiaphragm. No acute findings. Patient afebrile and has leukocytosis. Patient is on Zosyn. Patient is on S/C Heparin and famotidine. Recommend aerosolized bronchodilators. Objective Vital Signs - 12hr 02/04/20 02/04/20 02/04/20 01:46 02:00 02:16 Temperature Pulse Rate 113 H 114 H 112 H Pulse Rate [ From Monitor] Respiratory 27 H 26 H 26 H Rate Blood Pressure 125/56 118/62 118/62 O2 Sat by Pulse 95 95 97 Oximetry 02/04/20 02/04/20 02/04/20 02:30 02:46 03:00 Temperature Pulse Rate 113 H 113 H 113 H Pulse Rate [ From Monitor] Respiratory 26 H 27 H 26 H Rate Blood Pressure 118/62 118/62 114/60 O2 Sat by Pulse 97 97 98 Oximetry 02/04/20 02/04/20 02/04/20 03:16 03:30 03:46 Temperature Pulse Rate 114 H 113 H 113 H Pulse Rate [ From Monitor] Respiratory 27 H 29 H 29 H Rate Blood Pressure 118/62 118/62 118/62 O2 Sat by Pulse 97 100 96 Oximetry 02/04/20 02/04/20 02/04/20 04:00 04:16 04:30 Temperature 97.9 F Pulse Rate 113 H 109 H 112 H Pulse Rate [ 114 H From Monitor] Respiratory 27 H 29 H 28 H Rate Blood Pressure 129/66 129/66 129/66 O2 Sat by Pulse 100 82 L 95 Oximetry 02/04/20 02/04/20 02/04/20 04:46 05:00 05:16 Temperature Pulse Rate 114 H 114 H 112 H Pulse Rate [ From Monitor] Respiratory 30 H 28 H 30 H Rate Blood Pressure 129/66 126/69 126/69 O2 Sat by Pulse 99 98 99 Oximetry 02/04/20 02/04/20 02/04/20 05:30 05:46 06:00 Temperature Pulse Rate 109 H 109 H 107 H Pulse Rate [ From Monitor] Respiratory 28 H 28 H 29 H Rate Blood Pressure 126/69 126/69 121/71 O2 Sat by Pulse 100 100 100 Oximetry 02/04/20 02/04/20 02/04/20 06:16 06:30 06:46 Temperature Pulse Rate 105 H 65 102 H Pulse Rate [ From Monitor] Respiratory 28 H 17 24 Rate Blood Pressure 121/71 121/71 121/71 O2 Sat by Pulse 96 99 100 Oximetry 02/04/20 02/04/20 02/04/20 07:00 07:12 07:16 Temperature Pulse Rate 102 H 107 H Pulse Rate [ From Monitor] Respiratory 21 29 H Rate Blood Pressure 120/64 120/64 O2 Sat by Pulse 100 98 83 L Oximetry 02/04/20 02/04/20 02/04/20 07:29 07:30 07:46 Temperature Pulse Rate 105 H 103 H 101 H Pulse Rate [ From Monitor] Respiratory 27 H 25 H 22 Rate Blood Pressure 130/64 130/64 130/64 O2 Sat by Pulse 89 89 99 Oximetry 02/04/20 02/04/20 02/04/20 08:00 08:16 08:30 Temperature 97.9 F Pulse Rate 107 H 106 H 99 H Pulse Rate [ 104 H From Monitor] Respiratory 25 H 23 33 H Rate Blood Pressure 140/68 140/68 140/68 O2 Sat by Pulse 99 99 78 L Oximetry 02/04/20 02/04/20 02/04/20 08:45 09:00 09:15 Temperature Pulse Rate 83 112 H 113 H Pulse Rate [ From Monitor] Respiratory 20 28 H 25 H Rate Blood Pressure 124/78 124/78 O2 Sat by Pulse 100 95 100 Oximetry 02/04/20 02/04/20 02/04/20 09:31 09:45 10:00 Temperature Pulse Rate 110 H 108 H 110 H Pulse Rate [ From Monitor] Respiratory 25 H 24 24 Rate Blood Pressure 124/78 124/78 123/78 O2 Sat by Pulse 98 100 100 Oximetry 02/04/20 02/04/20 02/04/20 10:15 10:31 10:45 Temperature Pulse Rate 109 H 112 H 67 Pulse Rate [ From Monitor] Respiratory 24 24 19 Rate Blood Pressure 123/78 123/78 123/78 O2 Sat by Pulse 100 100 100 Oximetry 02/04/20 02/04/20 02/04/20 11:00 11:15 11:31 Temperature Pulse Rate 108 H 113 H 111 H Pulse Rate [ From Monitor] Respiratory 25 H 25 H 28 H Rate Blood Pressure 140/82 140/82 140/82 O2 Sat by Pulse 100 100 100 Oximetry 02/04/20 02/04/20 02/04/20 11:36 11:45 11:55 Temperature Pulse Rate 107 H 112 H Pulse Rate [ From Monitor] Respiratory 26 H 31 H Rate Blood Pressure 140/82 140/82 O2 Sat by Pulse 96 95 93 Oximetry 02/04/20 02/04/20 02/04/20 12:00 12:15 12:31 Temperature 97.9 F Pulse Rate 104 H 106 H 104 H Pulse Rate [ 64 From Monitor] Respiratory 26 H 25 H 26 H Rate Blood Pressure 126/63 126/63 126/63 O2 Sat by Pulse 91 95 93 Oximetry Constitutional: asleep, appears uncomfortable, other (elderly chronically ill looking female On BIPAP with slight increase in work of breathing.) Eyes: non-icteric ENT: oropharynx moist, other (extubated) Neck: supple, no lymphadenopathy Effort: normal Ascultation: Bilateral: diminished breath sounds, rales (bases predominant), rhonchi (scant) Percussion: Bilateral: not dull Cardiovascular: regular rate and rhythm, other (S1,S2) Gastrointestinal: normoactive bowel sounds, soft, non-tender, other (PEG in place) Integumentary: decubitus ulcer Extremities: no cyanosis, no edema, pulses normal, no ischemia or petechiae Neurologic: pupils equal and round, unable to assess Psychiatric: other (Unable to assess secondary to mental status) CBC and BMP: 02/04/20 13:53 02/04/20 13:53 ABG, PT/INR, D-dimer: ABG ABG pH 7.56 (7.320-7.450) H 02/02/20 14:45 POC ABG pCO2 39.4 mmHg (32.0-48.0) 02/02/20 14:45 ABG pCO2 33.6 mm Hg 02/01/20 03:14 POC ABG pO2 98.6 mmHg (83-108) 02/02/20 14:45 ABG pO2 124.1 mm Hg (80.0-90.0) H 02/01/20 03:14 POC ABG HCO3 34.5 02/02/20 14:45 ABG O2 Saturation 98.7 % (95.0-99.0) 02/01/20 03:14 PT/INR, D-dimer PT 14.4 Sec. (12.2-14.9) 02/02/20 05:25 INR 1.11 (0.87-1.13) 02/02/20 05:25 Abnormal lab findings: Abnormal Labs 01/08/20 01/08/20 01/08/20 16:29 16:29 16:29 WBC 13.5 H RBC Hgb Hct MCHC RDW 15.5 H Plt Count Lymph % (Auto) Lymph # Seg Neutrophils % Seg Neuts % (Manual) 85.0 H Lymphocytes % (Manual) 11.0 L Seg Neutrophils # Seg Neutrophils # Man 11.5 H Nucleated RBC % Lymphocytes # (Manual) Monocytes # (Manual) PT INR Heparin Anti-Xa Level POC ABG pO2 ABG pH ABG Hemoglobin ABG Oxyhemoglobin ABG pO2 ABG HCO3 ABG O2 Saturation ABG Base Excess Sodium 161 H* Potassium Chloride 125.5 H Carbon Dioxide 20 L BUN 30 H Creatinine Glucose 115 H POC Glucose Lactic Acid 2.20 H* Calcium 7.9 L AST 48 H Phosphorus Total Protein Albumin 2.5 L C-Reactive Protein Urine WBC (Auto) 01/08/20 01/08/20 01/08/20 19:02 23:30 Unknown WBC RBC Hgb Hct MCHC RDW Plt Count Lymph % (Auto) Lymph # Seg Neutrophils % Seg Neuts % (Manual) Lymphocytes % (Manual) Seg Neutrophils # Seg Neutrophils # Man Nucleated RBC % Lymphocytes # (Manual) Monocytes # (Manual) PT INR Heparin Anti-Xa Level POC ABG pO2 ABG pH ABG Hemoglobin ABG Oxyhemoglobin ABG pO2 ABG HCO3 ABG O2 Saturation ABG Base Excess Sodium Potassium Chloride Carbon Dioxide BUN Creatinine Glucose POC Glucose Lactic Acid 2.10 H* 2.50 H* Calcium AST Phosphorus Total Protein Albumin C-Reactive Protein Urine WBC (Auto) 11.0 H 01/09/20 01/09/20 01/09/20 00:19 00:54 05:52 WBC 13.5 H RBC 3.02 L Hgb 9.0 L D Hct 27.4 L D MCHC RDW Plt Count Lymph % (Auto) 9.1 L Lymph # Seg Neutrophils % 87.6 H Seg Neuts % (Manual) Lymphocytes % (Manual) Seg Neutrophils # 11.8 H Seg Neutrophils # Man Nucleated RBC % Lymphocytes # (Manual) Monocytes # (Manual) PT INR Heparin Anti-Xa Level POC ABG pO2 ABG pH ABG Hemoglobin ABG Oxyhemoglobin ABG pO2 ABG HCO3 ABG O2 Saturation ABG Base Excess Sodium Potassium Chloride Carbon Dioxide BUN Creatinine Glucose POC Glucose 118 H 116 H Lactic Acid Calcium AST Phosphorus Total Protein Albumin C-Reactive Protein Urine WBC (Auto) 01/09/20 01/09/20 01/09/20 05:52 05:52 13:03 WBC RBC Hgb Hct MCHC RDW Plt Count Lymph % (Auto) Lymph # Seg Neutrophils % Seg Neuts % (Manual) Lymphocytes % (Manual) Seg Neutrophils # Seg Neutrophils # Man Nucleated RBC % Lymphocytes # (Manual) Monocytes # (Manual) PT 17.1 H INR 1.36 H Heparin Anti-Xa Level POC ABG pO2 ABG pH ABG Hemoglobin ABG Oxyhemoglobin ABG pO2 ABG HCO3 ABG O2 Saturation ABG Base Excess Sodium 162 H* Potassium 3.0 L D Chloride 128.3 H Carbon Dioxide BUN 23 H Creatinine Glucose POC Glucose 55 L Lactic Acid Calcium 7.6 L AST Phosphorus Total Protein Albumin C-Reactive Protein Urine WBC (Auto) 01/09/20 01/09/20 01/09/20 21:22 21:50 22:28 WBC RBC Hgb Hct MCHC RDW Plt Count Lymph % (Auto) Lymph # Seg Neutrophils % Seg Neuts % (Manual) Lymphocytes % (Manual) Seg Neutrophils # Seg Neutrophils # Man Nucleated RBC % Lymphocytes # (Manual) Monocytes # (Manual) PT INR Heparin Anti-Xa Level POC ABG pO2 ABG pH ABG Hemoglobin ABG Oxyhemoglobin ABG pO2 ABG HCO3 ABG O2 Saturation ABG Base Excess Sodium 159 H Potassium 5.1 H D Chloride 128.5 H Carbon Dioxide 16 L BUN 23 H Creatinine Glucose 51 L POC Glucose 52 L 106 H Lactic Acid Calcium 8.2 L AST Phosphorus Total Protein Albumin C-Reactive Protein Urine WBC (Auto) 01/10/20 01/10/20 01/10/20 05:23 09:11 10:10 WBC 13.4 H RBC Hgb Hct MCHC RDW Plt Count Lymph % (Auto) 7.2 L Lymph # 1.0 L Seg Neutrophils % 90.0 H Seg Neuts % (Manual) Lymphocytes % (Manual) Seg Neutrophils # 12.0 H Seg Neutrophils # Man Nucleated RBC % Lymphocytes # (Manual) Monocytes # (Manual) PT INR Heparin Anti-Xa Level POC ABG pO2 ABG pH ABG Hemoglobin ABG Oxyhemoglobin ABG pO2 ABG HCO3 ABG O2 Saturation ABG Base Excess Sodium 155 H Potassium Chloride 122.8 H Carbon Dioxide 21 L BUN 19 H Creatinine Glucose POC Glucose 120 H Lactic Acid Calcium AST Phosphorus Total Protein Albumin C-Reactive Protein Urine WBC (Auto) 01/10/20 01/10/20 01/10/20 11:47 11:57 17:09 WBC RBC Hgb Hct MCHC RDW Plt Count Lymph % (Auto) Lymph # Seg Neutrophils % Seg Neuts % (Manual) Lymphocytes % (Manual) Seg Neutrophils # Seg Neutrophils # Man Nucleated RBC % Lymphocytes # (Manual) Monocytes # (Manual) PT INR Heparin Anti-Xa Level POC ABG pO2 ABG pH ABG Hemoglobin ABG Oxyhemoglobin ABG pO2 ABG HCO3 ABG O2 Saturation ABG Base Excess Sodium 153 H Potassium Chloride 118.3 H Carbon Dioxide 20 L BUN 19 H Creatinine Glucose 113 H POC Glucose 142 H 125 H Lactic Acid Calcium AST Phosphorus Total Protein Albumin C-Reactive Protein Urine WBC (Auto) 01/10/20 01/10/20 01/11/20 20:27 22:00 00:45 WBC RBC Hgb Hct MCHC RDW Plt Count Lymph % (Auto) Lymph # Seg Neutrophils % Seg Neuts % (Manual) Lymphocytes % (Manual) Seg Neutrophils # Seg Neutrophils # Man Nucleated RBC % Lymphocytes # (Manual) Monocytes # (Manual) PT INR Heparin Anti-Xa Level POC ABG pO2 ABG pH ABG Hemoglobin ABG Oxyhemoglobin ABG pO2 ABG HCO3 ABG O2 Saturation ABG Base Excess Sodium 153 H 154 H Potassium 3.3 L 3.2 L Chloride 117.0 H 118.9 H Carbon Dioxide 20 L BUN Creatinine Glucose POC Glucose 136 H Lactic Acid Calcium 8.3 L 8.0 L AST Phosphorus Total Protein Albumin C-Reactive Protein Urine WBC (Auto) 01/11/20 01/11/20 01/11/20 07:06 08:03 11:54 WBC RBC Hgb Hct MCHC RDW Plt Count Lymph % (Auto) Lymph # Seg Neutrophils % Seg Neuts % (Manual) Lymphocytes % (Manual) Seg Neutrophils # Seg Neutrophils # Man Nucleated RBC % Lymphocytes # (Manual) Monocytes # (Manual) PT INR Heparin Anti-Xa Level POC ABG pO2 ABG pH ABG Hemoglobin ABG Oxyhemoglobin ABG pO2 ABG HCO3 ABG O2 Saturation ABG Base Excess Sodium 151 H Potassium Chloride 118.7 H Carbon Dioxide 21 L BUN Creatinine Glucose 107 H POC Glucose 118 H 164 H Lactic Acid Calcium 8.3 L AST Phosphorus Total Protein Albumin C-Reactive Protein Urine WBC (Auto) 01/11/20 01/12/20 01/12/20 16:28 00:19 05:40 WBC RBC Hgb Hct MCHC RDW Plt Count Lymph % (Auto) Lymph # Seg Neutrophils % Seg Neuts % (Manual) Lymphocytes % (Manual) Seg Neutrophils # Seg Neutrophils # Man Nucleated RBC % Lymphocytes # (Manual) Monocytes # (Manual) PT INR Heparin Anti-Xa Level POC ABG pO2 ABG pH ABG Hemoglobin ABG Oxyhemoglobin ABG pO2 ABG HCO3 ABG O2 Saturation ABG Base Excess Sodium 148 H Potassium Chloride 111.6 H Carbon Dioxide 19 L BUN Creatinine Glucose 128 H POC Glucose 132 H 179 H Lactic Acid Calcium 8.2 L AST Phosphorus Total Protein Albumin C-Reactive Protein Urine WBC (Auto) 01/12/20 01/12/20 01/12/20 06:17 11:37 17:21 WBC RBC Hgb Hct MCHC RDW Plt Count Lymph % (Auto) Lymph # Seg Neutrophils % Seg Neuts % (Manual) Lymphocytes % (Manual) Seg Neutrophils # Seg Neutrophils # Man Nucleated RBC % Lymphocytes # (Manual) Monocytes # (Manual) PT INR Heparin Anti-Xa Level POC ABG pO2 ABG pH ABG Hemoglobin ABG Oxyhemoglobin ABG pO2 ABG HCO3 ABG O2 Saturation ABG Base Excess Sodium Potassium Chloride Carbon Dioxide BUN Creatinine Glucose POC Glucose 140 H 142 H 133 H Lactic Acid Calcium AST Phosphorus Total Protein Albumin C-Reactive Protein Urine WBC (Auto) 01/12/20 01/13/20 01/13/20 23:14 05:26 07:00 WBC RBC Hgb Hct MCHC RDW Plt Count Lymph % (Auto) Lymph # Seg Neutrophils % Seg Neuts % (Manual) Lymphocytes % (Manual) Seg Neutrophils # Seg Neutrophils # Man Nucleated RBC % Lymphocytes # (Manual) Monocytes # (Manual) PT INR Heparin Anti-Xa Level POC ABG pO2 ABG pH ABG Hemoglobin ABG Oxyhemoglobin ABG pO2 ABG HCO3 ABG O2 Saturation ABG Base Excess Sodium Potassium Chloride 110.0 H Carbon Dioxide BUN Creatinine Glucose 139 H POC Glucose 135 H 162 H Lactic Acid Calcium 7.8 L AST Phosphorus Total Protein Albumin C-Reactive Protein Urine WBC (Auto) 01/13/20 01/13/20 01/13/20 12:14 17:52 21:40 WBC RBC Hgb Hct MCHC RDW Plt Count Lymph % (Auto) Lymph # Seg Neutrophils % Seg Neuts % (Manual) Lymphocytes % (Manual) Seg Neutrophils # Seg Neutrophils # Man Nucleated RBC % Lymphocytes # (Manual) Monocytes # (Manual) PT INR Heparin Anti-Xa Level POC ABG pO2 ABG pH ABG Hemoglobin ABG Oxyhemoglobin ABG pO2 ABG HCO3 ABG O2 Saturation ABG Base Excess Sodium Potassium Chloride Carbon Dioxide BUN Creatinine Glucose POC Glucose 205 H 172 H 186 H Lactic Acid Calcium AST Phosphorus Total Protein Albumin C-Reactive Protein Urine WBC (Auto) 01/14/20 01/14/20 01/14/20 04:28 11:01 11:01 WBC 14.8 H RBC 3.20 L Hgb 9.5 L Hct 28.0 L MCHC RDW Plt Count Lymph % (Auto) Lymph # Seg Neutrophils % Seg Neuts % (Manual) Lymphocytes % (Manual) Seg Neutrophils # Seg Neutrophils # Man Nucleated RBC % Lymphocytes # (Manual) Monocytes # (Manual) PT INR Heparin Anti-Xa Level POC ABG pO2 ABG pH ABG Hemoglobin ABG Oxyhemoglobin ABG pO2 ABG HCO3 ABG O2 Saturation ABG Base Excess Sodium Potassium 3.2 L Chloride Carbon Dioxide BUN Creatinine 0.4 L Glucose POC Glucose 115 H Lactic Acid Calcium 8.0 L AST Phosphorus Total Protein Albumin C-Reactive Protein Urine WBC (Auto) 01/14/20 01/14/20 01/14/20 11:01 16:33 22:32 WBC RBC Hgb Hct MCHC RDW Plt Count Lymph % (Auto) Lymph # Seg Neutrophils % Seg Neuts % (Manual) Lymphocytes % (Manual) Seg Neutrophils # Seg Neutrophils # Man Nucleated RBC % Lymphocytes # (Manual) Monocytes # (Manual) PT 15.8 H INR 1.23 H Heparin Anti-Xa Level POC ABG pO2 ABG pH ABG Hemoglobin ABG Oxyhemoglobin ABG pO2 ABG HCO3 ABG O2 Saturation ABG Base Excess Sodium Potassium Chloride Carbon Dioxide BUN Creatinine Glucose POC Glucose 58 L 188 H Lactic Acid Calcium AST Phosphorus Total Protein Albumin C-Reactive Protein Urine WBC (Auto) 01/15/20 01/15/20 01/15/20 05:35 06:19 17:17 WBC RBC Hgb Hct MCHC RDW Plt Count Lymph % (Auto) Lymph # Seg Neutrophils % Seg Neuts % (Manual) Lymphocytes % (Manual) Seg Neutrophils # Seg Neutrophils # Man Nucleated RBC % Lymphocytes # (Manual) Monocytes # (Manual) PT INR Heparin Anti-Xa Level POC ABG pO2 ABG pH ABG Hemoglobin ABG Oxyhemoglobin ABG pO2 ABG HCO3 ABG O2 Saturation ABG Base Excess Sodium Potassium Chloride Carbon Dioxide BUN Creatinine 0.5 L Glucose 104 H POC Glucose 106 H 183 H Lactic Acid Calcium 7.8 L AST Phosphorus Total Protein Albumin C-Reactive Protein Urine WBC (Auto) 01/15/20 01/16/20 01/16/20 22:29 05:35 05:59 WBC 14.7 H RBC 3.04 L Hgb 9.0 L Hct 27.0 L MCHC RDW Plt Count Lymph % (Auto) 9.1 L Lymph # Seg Neutrophils % 87.3 H Seg Neuts % (Manual) Lymphocytes % (Manual) Seg Neutrophils # 12.9 H Seg Neutrophils # Man Nucleated RBC % Lymphocytes # (Manual) Monocytes # (Manual) PT INR Heparin Anti-Xa Level POC ABG pO2 ABG pH ABG Hemoglobin ABG Oxyhemoglobin ABG pO2 ABG HCO3 ABG O2 Saturation ABG Base Excess Sodium Potassium Chloride Carbon Dioxide BUN Creatinine Glucose POC Glucose 228 H 130 H Lactic Acid Calcium AST Phosphorus Total Protein Albumin C-Reactive Protein Urine WBC (Auto) 01/16/20 01/16/20 01/16/20 09:52 12:49 17:30 WBC RBC Hgb Hct MCHC RDW Plt Count Lymph % (Auto) Lymph # Seg Neutrophils % Seg Neuts % (Manual) Lymphocytes % (Manual) Seg Neutrophils # Seg Neutrophils # Man Nucleated RBC % Lymphocytes # (Manual) Monocytes # (Manual) PT INR Heparin Anti-Xa Level POC ABG pO2 ABG pH ABG Hemoglobin ABG Oxyhemoglobin ABG pO2 ABG HCO3 ABG O2 Saturation ABG Base Excess Sodium Potassium Chloride Carbon Dioxide BUN Creatinine Glucose POC Glucose 122 H 142 H 192 H Lactic Acid Calcium AST Phosphorus Total Protein Albumin C-Reactive Protein Urine WBC (Auto) 01/16/20 01/17/20 01/17/20 23:01 08:36 08:36 WBC 12.7 H RBC 2.98 L Hgb 8.9 L Hct 26.4 L MCHC RDW Plt Count Lymph % (Auto) 8.8 L Lymph # 1.1 L Seg Neutrophils % 86.7 H Seg Neuts % (Manual) Lymphocytes % (Manual) Seg Neutrophils # 11.0 H Seg Neutrophils # Man Nucleated RBC % Lymphocytes # (Manual) Monocytes # (Manual) PT INR Heparin Anti-Xa Level POC ABG pO2 ABG pH ABG Hemoglobin ABG Oxyhemoglobin ABG pO2 ABG HCO3 ABG O2 Saturation ABG Base Excess Sodium Potassium 3.3 L D Chloride Carbon Dioxide BUN Creatinine 0.4 L Glucose POC Glucose 141 H Lactic Acid Calcium 8.1 L AST Phosphorus Total Protein 4.6 L Albumin 1.6 L C-Reactive Protein Urine WBC (Auto) 01/17/20 01/17/20 01/18/20 11:43 23:56 06:27 WBC RBC Hgb Hct MCHC RDW Plt Count Lymph % (Auto) Lymph # Seg Neutrophils % Seg Neuts % (Manual) Lymphocytes % (Manual) Seg Neutrophils # Seg Neutrophils # Man Nucleated RBC % Lymphocytes # (Manual) Monocytes # (Manual) PT INR Heparin Anti-Xa Level POC ABG pO2 ABG pH ABG Hemoglobin ABG Oxyhemoglobin ABG pO2 ABG HCO3 ABG O2 Saturation ABG Base Excess Sodium Potassium Chloride Carbon Dioxide BUN Creatinine Glucose POC Glucose 137 H 215 H 122 H Lactic Acid Calcium AST Phosphorus Total Protein Albumin C-Reactive Protein Urine WBC (Auto) 01/18/20 01/18/20 01/18/20 07:31 07:31 11:39 WBC 12.1 H RBC 3.23 L Hgb 9.7 L Hct 28.7 L MCHC RDW Plt Count Lymph % (Auto) 9.2 L Lymph # 1.1 L Seg Neutrophils % 85.0 H Seg Neuts % (Manual) Lymphocytes % (Manual) Seg Neutrophils # 10.3 H Seg Neutrophils # Man Nucleated RBC % Lymphocytes # (Manual) Monocytes # (Manual) PT INR Heparin Anti-Xa Level POC ABG pO2 ABG pH ABG Hemoglobin ABG Oxyhemoglobin ABG pO2 ABG HCO3 ABG O2 Saturation ABG Base Excess Sodium Potassium Chloride Carbon Dioxide BUN Creatinine 0.4 L Glucose 108 H POC Glucose 172 H Lactic Acid Calcium AST Phosphorus Total Protein 5.3 L Albumin 2.1 L C-Reactive Protein Urine WBC (Auto) 01/18/20 01/19/20 01/19/20 18:22 00:15 11:30 WBC RBC Hgb Hct MCHC RDW Plt Count Lymph % (Auto) Lymph # Seg Neutrophils % Seg Neuts % (Manual) Lymphocytes % (Manual) Seg Neutrophils # Seg Neutrophils # Man Nucleated RBC % Lymphocytes # (Manual) Monocytes # (Manual) PT INR Heparin Anti-Xa Level POC ABG pO2 ABG pH ABG Hemoglobin ABG Oxyhemoglobin ABG pO2 ABG HCO3 ABG O2 Saturation ABG Base Excess Sodium Potassium Chloride Carbon Dioxide BUN Creatinine Glucose POC Glucose 119 H 135 H 163 H Lactic Acid Calcium AST Phosphorus Total Protein Albumin C-Reactive Protein Urine WBC (Auto) 01/19/20 01/19/20 01/20/20 17:44 22:59 03:44 WBC 11.1 H RBC 2.77 L Hgb 8.4 L Hct 25.0 L MCHC RDW Plt Count Lymph % (Auto) Lymph # Seg Neutrophils % 74.6 H Seg Neuts % (Manual) Lymphocytes % (Manual) Seg Neutrophils # 8.3 H Seg Neutrophils # Man Nucleated RBC % Lymphocytes # (Manual) Monocytes # (Manual) PT INR Heparin Anti-Xa Level POC ABG pO2 ABG pH ABG Hemoglobin ABG Oxyhemoglobin ABG pO2 ABG HCO3 ABG O2 Saturation ABG Base Excess Sodium Potassium Chloride Carbon Dioxide BUN Creatinine Glucose POC Glucose 161 H 182 H Lactic Acid Calcium AST Phosphorus Total Protein Albumin C-Reactive Protein Urine WBC (Auto) 01/20/20 01/21/20 01/21/20 03:44 00:07 05:51 WBC RBC 2.84 L Hgb 8.6 L Hct 25.5 L MCHC RDW Plt Count 463 H Lymph % (Auto) Lymph # Seg Neutrophils % 76.9 H Seg Neuts % (Manual) Lymphocytes % (Manual) Seg Neutrophils # 7.8 H Seg Neutrophils # Man Nucleated RBC % Lymphocytes # (Manual) Monocytes # (Manual) PT INR Heparin Anti-Xa Level POC ABG pO2 ABG pH ABG Hemoglobin ABG Oxyhemoglobin ABG pO2 ABG HCO3 ABG O2 Saturation ABG Base Excess Sodium Potassium Chloride Carbon Dioxide BUN Creatinine 0.4 L Glucose POC Glucose 68 L Lactic Acid Calcium 7.9 L AST Phosphorus Total Protein 4.7 L Albumin 1.9 L C-Reactive Protein Urine WBC (Auto) 01/21/20 01/21/20 01/21/20 05:51 05:58 11:25 WBC RBC Hgb Hct MCHC RDW Plt Count Lymph % (Auto) Lymph # Seg Neutrophils % Seg Neuts % (Manual) Lymphocytes % (Manual) Seg Neutrophils # Seg Neutrophils # Man Nucleated RBC % Lymphocytes # (Manual) Monocytes # (Manual) PT INR Heparin Anti-Xa Level POC ABG pO2 ABG pH ABG Hemoglobin ABG Oxyhemoglobin ABG pO2 ABG HCO3 ABG O2 Saturation ABG Base Excess Sodium Potassium Chloride Carbon Dioxide 20 L BUN Creatinine 0.5 L Glucose 130 H POC Glucose 185 H 163 H Lactic Acid Calcium 7.6 L AST Phosphorus Total Protein 5.0 L Albumin 1.9 L C-Reactive Protein Urine WBC (Auto) 01/21/20 01/21/20 01/22/20 16:22 21:17 01:28 WBC RBC 2.60 L Hgb 8.0 L Hct 23.3 L MCHC RDW Plt Count Lymph % (Auto) Lymph # Seg Neutrophils % 74.8 H Seg Neuts % (Manual) Lymphocytes % (Manual) Seg Neutrophils # Seg Neutrophils # Man Nucleated RBC % Lymphocytes # (Manual) Monocytes # (Manual) PT INR Heparin Anti-Xa Level POC ABG pO2 ABG pH ABG Hemoglobin ABG Oxyhemoglobin ABG pO2 ABG HCO3 ABG O2 Saturation ABG Base Excess Sodium Potassium Chloride Carbon Dioxide BUN Creatinine Glucose POC Glucose 177 H 67 L Lactic Acid Calcium AST Phosphorus Total Protein Albumin C-Reactive Protein Urine WBC (Auto) 01/22/20 01/22/20 01/22/20 01:28 01:28 12:06 WBC RBC Hgb Hct MCHC RDW Plt Count Lymph % (Auto) Lymph # Seg Neutrophils % Seg Neuts % (Manual) Lymphocytes % (Manual) Seg Neutrophils # Seg Neutrophils # Man Nucleated RBC % Lymphocytes # (Manual) Monocytes # (Manual) PT INR Heparin Anti-Xa Level POC ABG pO2 ABG pH ABG Hemoglobin ABG Oxyhemoglobin ABG pO2 ABG HCO3 ABG O2 Saturation ABG Base Excess Sodium Potassium Chloride 107.6 H Carbon Dioxide BUN Creatinine 0.4 L Glucose 152 H POC Glucose 203 H 140 H Lactic Acid Calcium 7.5 L AST Phosphorus Total Protein 4.0 L Albumin 2.0 L C-Reactive Protein Urine WBC (Auto) 01/22/20 01/22/2001/22/20 16:24 22:55 06:10 WBC RBC 2.68 L Hgb 8.6 L Hct 24.1 L MCHC 36 H RDW Plt Count Lymph % (Auto) Lymph # Seg Neutrophils % Seg Neuts % (Manual) 71.0 H Lymphocytes % (Manual) Seg Neutrophils # Seg Neutrophils # Man Nucleated RBC % Lymphocytes # (Manual) Monocytes # (Manual) PT INR Heparin Anti-Xa Level POC ABG pO2 ABG pH ABG Hemoglobin ABG Oxyhemoglobin ABG pO2 ABG HCO3 ABG O2 Saturation ABG Base Excess Sodium Potassium Chloride Carbon Dioxide BUN Creatinine Glucose POC Glucose 205 H 196 H Lactic Acid Calcium AST Phosphorus Total Protein Albumin C-Reactive Protein Urine WBC (Auto) 01/23/20 01/23/20 01/23/20 06:10 07:35 11:59 WBC RBC Hgb Hct MCHC RDW Plt Count Lymph % (Auto) Lymph # Seg Neutrophils % Seg Neuts % (Manual) Lymphocytes % (Manual) Seg Neutrophils # Seg Neutrophils # Man Nucleated RBC % Lymphocytes # (Manual) Monocytes # (Manual) PT INR Heparin Anti-Xa Level POC ABG pO2 ABG pH ABG Hemoglobin ABG Oxyhemoglobin ABG pO2 ABG HCO3 ABG O2 Saturation ABG Base Excess Sodium Potassium Chloride 108.8 H Carbon Dioxide BUN Creatinine 0.4 L Glucose 105 H POC Glucose 111 H 123 H Lactic Acid Calcium 8.0 L AST Phosphorus Total Protein 4.9 L D Albumin 2.0 L C-Reactive Protein Urine WBC (Auto) 01/23/20 01/24/20 01/24/20 22:45 11:24 16:41 WBC RBC Hgb Hct MCHC RDW Plt Count Lymph % (Auto) Lymph # Seg Neutrophils % Seg Neuts % (Manual) Lymphocytes % (Manual) Seg Neutrophils # Seg Neutrophils # Man Nucleated RBC % Lymphocytes # (Manual) Monocytes # (Manual) PT INR Heparin Anti-Xa Level POC ABG pO2 ABG pH ABG Hemoglobin ABG Oxyhemoglobin ABG pO2 ABG HCO3 ABG O2 Saturation ABG Base Excess Sodium Potassium Chloride Carbon Dioxide BUN Creatinine Glucose POC Glucose 180 H 182 H 177 H Lactic Acid Calcium AST Phosphorus Total Protein Albumin C-Reactive Protein Urine WBC (Auto) 01/24/20 01/25/20 01/25/20 23:11 07:12 11:35 WBC RBC Hgb Hct MCHC RDW Plt Count Lymph % (Auto) Lymph # Seg Neutrophils % Seg Neuts % (Manual) Lymphocytes % (Manual) Seg Neutrophils # Seg Neutrophils # Man Nucleated RBC % Lymphocytes # (Manual) Monocytes # (Manual) PT INR Heparin Anti-Xa Level POC ABG pO2 ABG pH ABG Hemoglobin ABG Oxyhemoglobin ABG pO2 ABG HCO3 ABG O2 Saturation ABG Base Excess Sodium Potassium Chloride Carbon Dioxide BUN Creatinine Glucose POC Glucose 142 H 135 H 142 H Lactic Acid Calcium AST Phosphorus Total Protein Albumin C-Reactive Protein Urine WBC (Auto) 01/25/20 01/26/20 01/26/20 16:33 00:04 11:35 WBC RBC Hgb Hct MCHC RDW Plt Count Lymph % (Auto) Lymph # Seg Neutrophils % Seg Neuts % (Manual) Lymphocytes % (Manual) Seg Neutrophils # Seg Neutrophils # Man Nucleated RBC % Lymphocytes # (Manual) Monocytes # (Manual) PT INR Heparin Anti-Xa Level POC ABG pO2 ABG pH ABG Hemoglobin ABG Oxyhemoglobin ABG pO2 ABG HCO3 ABG O2 Saturation ABG Base Excess Sodium Potassium Chloride Carbon Dioxide BUN Creatinine Glucose POC Glucose 247 H 233 H 200 H Lactic Acid Calcium AST Phosphorus Total Protein Albumin C-Reactive Protein Urine WBC (Auto) 01/26/20 01/26/20 01/26/20 16:30 16:30 17:19 WBC RBC Hgb 7.4 L Hct 22.0 L MCHC RDW Plt Count Lymph % (Auto) Lymph # Seg Neutrophils % Seg Neuts % (Manual) Lymphocytes % (Manual) Seg Neutrophils # Seg Neutrophils # Man Nucleated RBC % Lymphocytes # (Manual) Monocytes # (Manual) PT 18.4 H INR 1.50 H Heparin Anti-Xa Level POC ABG pO2 ABG pH ABG Hemoglobin ABG Oxyhemoglobin ABG pO2 ABG HCO3 ABG O2 Saturation ABG Base Excess Sodium Potassium Chloride Carbon Dioxide BUN Creatinine Glucose POC Glucose 67 L Lactic Acid Calcium AST Phosphorus Total Protein Albumin C-Reactive Protein Urine WBC (Auto) 01/26/20 01/26/20 01/27/20 20:24 21:32 00:16 WBC RBC Hgb Hct MCHC RDW Plt Count Lymph % (Auto) Lymph # Seg Neutrophils % Seg Neuts % (Manual) Lymphocytes % (Manual) Seg Neutrophils # Seg Neutrophils # Man Nucleated RBC % Lymphocytes # (Manual) Monocytes # (Manual) PT INR Heparin Anti-Xa Level POC ABG pO2 51.8 L ABG pH ABG Hemoglobin 8.5 L ABG Oxyhemoglobin 84.7 L ABG pO2 ABG HCO3 ABG O2 Saturation ABG Base Excess Sodium Potassium Chloride Carbon Dioxide BUN Creatinine Glucose POC Glucose 162 H 141 H Lactic Acid Calcium AST Phosphorus Total Protein Albumin C-Reactive Protein Urine WBC (Auto) 01/27/20 01/27/20 01/27/20 01:42 02:18 05:57 WBC RBC Hgb Hct MCHC RDW Plt Count Lymph % (Auto) Lymph # Seg Neutrophils % Seg Neuts % (Manual) Lymphocytes % (Manual) Seg Neutrophils # Seg Neutrophils # Man Nucleated RBC % Lymphocytes # (Manual) Monocytes # (Manual) PT INR Heparin Anti-Xa Level 2.00 H POC ABG pO2 ABG pH ABG Hemoglobin ABG Oxyhemoglobin ABG pO2 ABG HCO3 ABG O2 Saturation ABG Base Excess Sodium Potassium Chloride Carbon Dioxide BUN Creatinine Glucose POC Glucose 183 H 124 H Lactic Acid Calcium AST Phosphorus Total Protein Albumin C-Reactive Protein Urine WBC (Auto) 01/27/20 01/27/20 01/27/20 06:30 06:30 12:23 WBC RBC 2.75 L Hgb 8.4 L Hct 24.9 L MCHC RDW 16.0 H Plt Count 474 H Lymph % (Auto) 12.7 L Lymph # Seg Neutrophils % 83.2 H Seg Neuts % (Manual) Lymphocytes % (Manual) Seg Neutrophils # 8.4 H Seg Neutrophils # Man Nucleated RBC % Lymphocytes # (Manual) Monocytes # (Manual) PT INR Heparin Anti-Xa Level POC ABG pO2 ABG pH ABG Hemoglobin ABG Oxyhemoglobin ABG pO2 ABG HCO3 ABG O2 Saturation ABG Base Excess Sodium Potassium 3.5 L Chloride 110.2 H Carbon Dioxide BUN Creatinine 0.4 L Glucose 101 H POC Glucose 126 H Lactic Acid Calcium 7.8 L AST Phosphorus Total Protein Albumin C-Reactive Protein Urine WBC (Auto) 01/27/20 01/27/20 01/28/20 17:31 23:40 00:00 WBC RBC Hgb Hct MCHC RDW Plt Count Lymph % (Auto) Lymph # Seg Neutrophils % Seg Neuts % (Manual) Lymphocytes % (Manual) Seg Neutrophils # Seg Neutrophils # Man Nucleated RBC % Lymphocytes # (Manual) Monocytes # (Manual) PT INR Heparin Anti-Xa Level 2.00 H POC ABG pO2 ABG pH ABG Hemoglobin ABG Oxyhemoglobin ABG pO2 ABG HCO3 ABG O2 Saturation ABG Base Excess Sodium Potassium Chloride Carbon Dioxide BUN Creatinine Glucose POC Glucose 133 H 136 H Lactic Acid Calcium AST Phosphorus Total Protein Albumin C-Reactive Protein Urine WBC (Auto) 01/28/20 01/28/20 01/28/20 04:26 04:26 05:35 WBC RBC Hgb 9.6 L Hct 28.5 L MCHC RDW Plt Count 508 H Lymph % (Auto) Lymph # Seg Neutrophils % Seg Neuts % (Manual) Lymphocytes % (Manual) Seg Neutrophils # Seg Neutrophils # Man Nucleated RBC % Lymphocytes # (Manual) Monocytes # (Manual) PT INR Heparin Anti-Xa Level POC ABG pO2 ABG pH ABG Hemoglobin ABG Oxyhemoglobin ABG pO2 ABG HCO3 ABG O2 Saturation ABG Base Excess Sodium Potassium Chloride Carbon Dioxide 19 L BUN 20 H Creatinine 0.5 L Glucose 103 H POC Glucose 135 H Lactic Acid Calcium 7.9 L AST Phosphorus Total Protein Albumin C-Reactive Protein Urine WBC (Auto) 01/28/20 01/28/20 01/28/20 08:50 11:10 11:51 WBC RBC Hgb Hct MCHC RDW Plt Count Lymph % (Auto) Lymph # Seg Neutrophils % Seg Neuts % (Manual) Lymphocytes % (Manual) Seg Neutrophils # Seg Neutrophils # Man Nucleated RBC % Lymphocytes # (Manual) Monocytes # (Manual) PT INR Heparin Anti-Xa Level 0.74 H POC ABG pO2 67.2 L ABG pH ABG Hemoglobin 9.3 L ABG Oxyhemoglobin ABG pO2 ABG HCO3 ABG O2 Saturation ABG Base Excess Sodium Potassium Chloride Carbon Dioxide BUN Creatinine Glucose POC Glucose 160 H Lactic Acid Calcium AST Phosphorus Total Protein Albumin C-Reactive Protein Urine WBC (Auto) 01/28/20 01/28/20 01/29/20 17:19 23:53 03:52 WBC RBC Hgb Hct MCHC RDW Plt Count Lymph % (Auto) Lymph # Seg Neutrophils % Seg Neuts % (Manual) Lymphocytes % (Manual) Seg Neutrophils # Seg Neutrophils # Man Nucleated RBC % Lymphocytes # (Manual) Monocytes # (Manual) PT INR Heparin Anti-Xa Level POC ABG pO2 ABG pH 7.510 H ABG Hemoglobin 7.3 L ABG Oxyhemoglobin ABG pO2 357.0 H ABG HCO3 19.6 L ABG O2 Saturation 99.6 H ABG Base Excess -2.9 L Sodium Potassium Chloride Carbon Dioxide BUN Creatinine Glucose POC Glucose 177 H 142 H Lactic Acid Calcium AST Phosphorus Total Protein Albumin C-Reactive Protein Urine WBC (Auto) 01/29/20 01/29/20 01/29/20 04:58 04:58 06:01 WBC 13.1 H RBC 2.75 L Hgb 8.6 L Hct 25.6 L MCHC RDW 17.7 H Plt Count Lymph % (Auto) Lymph # Seg Neutrophils % Seg Neuts % (Manual) 91.0 H Lymphocytes % (Manual) 6.0 L Seg Neutrophils # Seg Neutrophils # Man 11.9 H Nucleated RBC % 1.0 H Lymphocytes # (Manual) 0.8 L Monocytes # (Manual) PT INR Heparin Anti-Xa Level POC ABG pO2 ABG pH ABG Hemoglobin ABG Oxyhemoglobin ABG pO2 ABG HCO3 ABG O2 Saturation ABG Base Excess Sodium 148 H Potassium 3.5 L D Chloride 113.2 H Carbon Dioxide 21 L BUN 20 H Creatinine Glucose 137 H POC Glucose 167 H Lactic Acid Calcium 8.1 L AST Phosphorus Total Protein Albumin C-Reactive Protein Urine WBC (Auto) 01/29/20 01/29/20 01/29/20 11:45 17:52 23:49 WBC RBC Hgb Hct MCHC RDW Plt Count Lymph % (Auto) Lymph # Seg Neutrophils % Seg Neuts % (Manual) Lymphocytes % (Manual) Seg Neutrophils # Seg Neutrophils # Man Nucleated RBC % Lymphocytes # (Manual) Monocytes # (Manual) PT INR Heparin Anti-Xa Level POC ABG pO2 ABG pH ABG Hemoglobin ABG Oxyhemoglobin ABG pO2 ABG HCO3 ABG O2 Saturation ABG Base Excess Sodium Potassium Chloride Carbon Dioxide BUN Creatinine Glucose POC Glucose 185 H 226 H 141 H Lactic Acid Calcium AST Phosphorus Total Protein Albumin C-Reactive Protein Urine WBC (Auto) 01/29/20 01/30/20 01/30/20 Unknown 03:24 04:00 WBC RBC Hgb 7.8 L Hct 23.5 L MCHC RDW Plt Count Lymph % (Auto) Lymph # Seg Neutrophils % Seg Neuts % (Manual) Lymphocytes % (Manual) Seg Neutrophils # Seg Neutrophils # Man Nucleated RBC % Lymphocytes # (Manual) Monocytes # (Manual) PT INR Heparin Anti-Xa Level POC ABG pO2 ABG pH 7.485 H ABG Hemoglobin 6.7 L ABG Oxyhemoglobin ABG pO2 102.0 H ABG HCO3 ABG O2 Saturation ABG Base Excess Sodium Potassium Chloride Carbon Dioxide BUN Creatinine Glucose POC Glucose Lactic Acid Calcium AST Phosphorus Total Protein Albumin C-Reactive Protein 14.80 H Urine WBC (Auto) 01/30/20 01/30/20 01/30/20 05:50 11:15 17:07 WBC RBC Hgb Hct MCHC RDW Plt Count Lymph % (Auto) Lymph # Seg Neutrophils % Seg Neuts % (Manual) Lymphocytes % (Manual) Seg Neutrophils # Seg Neutrophils # Man Nucleated RBC % Lymphocytes # (Manual) Monocytes # (Manual) PT INR Heparin Anti-Xa Level POC ABG pO2 ABG pH ABG Hemoglobin ABG Oxyhemoglobin ABG pO2 ABG HCO3 ABG O2 Saturation ABG Base Excess Sodium Potassium Chloride Carbon Dioxide BUN Creatinine Glucose POC Glucose 122 H 207 H 124 H Lactic Acid Calcium AST Phosphorus Total Protein Albumin C-Reactive Protein Urine WBC (Auto) 01/30/20 01/31/20 01/31/20 17:08 00:10 04:52 WBC RBC Hgb Hct MCHC RDW Plt Count Lymph % (Auto) Lymph # Seg Neutrophils % Seg Neuts % (Manual) Lymphocytes % (Manual) Seg Neutrophils # Seg Neutrophils # Man Nucleated RBC % Lymphocytes # (Manual) Monocytes # (Manual) PT INR Heparin Anti-Xa Level POC ABG pO2 ABG pH 7.504 H 7.486 H ABG Hemoglobin 7.4 L 6.2 L ABG Oxyhemoglobin ABG pO2 169.2 H 121.7 H ABG HCO3 27.1 H ABG O2 Saturation 99.1 H ABG Base Excess 3.4 H Sodium Potassium Chloride Carbon Dioxide BUN Creatinine Glucose POC Glucose 191 H Lactic Acid Calcium AST Phosphorus Total Protein Albumin C-Reactive Protein Urine WBC (Auto) 01/31/20 01/31/20 01/31/20 05:37 11:59 12:40 WBC RBC 2.41 L Hgb 7.5 L Hct 22.3 L MCHC RDW 22.2 H Plt Count Lymph % (Auto) Lymph # Seg Neutrophils % Seg Neuts % (Manual) 94.0 H Lymphocytes % (Manual) 2.0 L Seg Neutrophils # Seg Neutrophils # Man 9.4 H Nucleated RBC % Lymphocytes # (Manual) 0.2 L Monocytes # (Manual) PT INR Heparin Anti-Xa Level POC ABG pO2 ABG pH ABG Hemoglobin ABG Oxyhemoglobin ABG pO2 ABG HCO3 ABG O2 Saturation ABG Base Excess Sodium Potassium Chloride Carbon Dioxide BUN Creatinine Glucose POC Glucose 175 H 220 H Lactic Acid Calcium AST Phosphorus Total Protein Albumin C-Reactive Protein Urine WBC (Auto) 01/31/20 01/31/20 01/31/20 12:40 14:40 18:18 WBC RBC Hgb Hct MCHC RDW Plt Count Lymph % (Auto) Lymph # Seg Neutrophils % Seg Neuts % (Manual) Lymphocytes % (Manual) Seg Neutrophils # Seg Neutrophils # Man Nucleated RBC % Lymphocytes # (Manual) Monocytes # (Manual) PT INR Heparin Anti-Xa Level POC ABG pO2 124.7 H ABG pH 7.542 H ABG Hemoglobin 7.8 L ABG Oxyhemoglobin ABG pO2 ABG HCO3 ABG O2 Saturation ABG Base Excess Sodium 151 H Potassium 2.1 L* D Chloride 108.9 H Carbon Dioxide BUN 22 H Creatinine Glucose 194 H POC Glucose 181 H Lactic Acid Calcium 8.1 L AST Phosphorus Total Protein 4.8 L Albumin 2.3 L C-Reactive Protein Urine WBC (Auto) 02/01/20 02/01/20 02/01/20 00:11 03:14 04:32 WBC 11.9 H RBC 2.47 L Hgb 7.6 L Hct 22.8 L MCHC RDW 22.7 H Plt Count Lymph % (Auto) Lymph # Seg Neutrophils % Seg Neuts % (Manual) 90.0 H Lymphocytes % (Manual) 5.0 L Seg Neutrophils # Seg Neutrophils # Man 10.7 H Nucleated RBC % Lymphocytes # (Manual) 0.6 L Monocytes # (Manual) PT INR Heparin Anti-Xa Level POC ABG pO2 ABG pH 7.564 H ABG Hemoglobin 7.6 L ABG Oxyhemoglobin ABG pO2 124.1 H ABG HCO3 29.6 H ABG O2 Saturation ABG Base Excess 7.0 H Sodium Potassium Chloride Carbon Dioxide BUN Creatinine Glucose POC Glucose 190 H Lactic Acid Calcium AST Phosphorus Total Protein Albumin C-Reactive Protein Urine WBC (Auto) 02/01/20 02/01/20 02/01/20 04:32 05:28 11:56 WBC RBC Hgb Hct MCHC RDW Plt Count Lymph % (Auto) Lymph # Seg Neutrophils % Seg Neuts % (Manual) Lymphocytes % (Manual) Seg Neutrophils # Seg Neutrophils # Man Nucleated RBC % Lymphocytes # (Manual) Monocytes # (Manual) PT INR Heparin Anti-Xa Level POC ABG pO2 ABG pH ABG Hemoglobin ABG Oxyhemoglobin ABG pO2 ABG HCO3 ABG O2 Saturation ABG Base Excess Sodium 149 H Potassium 2.6 L* D Chloride Carbon Dioxide 33 H BUN 23 H Creatinine 0.5 L Glucose 174 H POC Glucose 187 H 195 H Lactic Acid Calcium 8.0 L AST Phosphorus 1.60 L Total Protein Albumin C-Reactive Protein Urine WBC (Auto) 02/01/20 02/01/20 02/02/20 18:15 23:35 04:33 WBC RBC Hgb Hct MCHC RDW Plt Count Lymph % (Auto) Lymph # Seg Neutrophils % Seg Neuts % (Manual) Lymphocytes % (Manual) Seg Neutrophils # Seg Neutrophils # Man Nucleated RBC % Lymphocytes # (Manual) Monocytes # (Manual) PT INR Heparin Anti-Xa Level POC ABG pO2 ABG pH 7.549 H ABG Hemoglobin 9.8 L ABG Oxyhemoglobin ABG pO2 ABG HCO3 ABG O2 Saturation ABG Base Excess Sodium Potassium Chloride Carbon Dioxide BUN Creatinine Glucose POC Glucose 226 H 252 H Lactic Acid Calcium AST Phosphorus Total Protein Albumin C-Reactive Protein Urine WBC (Auto) 02/02/20 02/02/20 02/02/20 05:25 05:25 05:40 WBC 15.5 H RBC 2.43 L Hgb 7.6 L Hct 22.9 L MCHC RDW 23.6 H Plt Count Lymph % (Auto) Lymph # Seg Neutrophils % Seg Neuts % (Manual) 89.0 H Lymphocytes % (Manual) 3.0 L Seg Neutrophils # Seg Neutrophils # Man 13.8 H Nucleated RBC % Lymphocytes # (Manual) 0.5 L Monocytes # (Manual) 0.9 H PT INR Heparin Anti-Xa Level POC ABG pO2 ABG pH ABG Hemoglobin ABG Oxyhemoglobin ABG pO2 ABG HCO3 ABG O2 Saturation ABG Base Excess Sodium Potassium 2.6 L* Chloride Carbon Dioxide 33 H BUN 26 H Creatinine Glucose 175 H POC Glucose 181 H Lactic Acid Calcium 7.9 L AST Phosphorus Total Protein Albumin C-Reactive Protein Urine WBC (Auto) 02/02/20 02/02/20 02/02/20 11:55 14:45 17:18 WBC RBC Hgb Hct MCHC RDW Plt Count Lymph % (Auto) Lymph # Seg Neutrophils % Seg Neuts % (Manual) Lymphocytes % (Manual) Seg Neutrophils # Seg Neutrophils # Man Nucleated RBC % Lymphocytes # (Manual) Monocytes # (Manual) PT INR Heparin Anti-Xa Level POC ABG pO2 ABG pH 7.56 H ABG Hemoglobin 7.6 L ABG Oxyhemoglobin ABG pO2 ABG HCO3 ABG O2 Saturation ABG Base Excess Sodium Potassium Chloride Carbon Dioxide BUN Creatinine Glucose POC Glucose 226 H 227 H Lactic Acid Calcium AST Phosphorus Total Protein Albumin C-Reactive Protein Urine WBC (Auto) 02/02/20 02/03/20 02/03/20 20:54 00:02 05:14 WBC 18.7 H RBC 2.45 L Hgb 7.6 L Hct 23.2 L MCHC RDW 23.5 H Plt Count Lymph % (Auto) Lymph # Seg Neutrophils % Seg Neuts % (Manual) 94.0 H Lymphocytes % (Manual) 3.0 L Seg Neutrophils # Seg Neutrophils # Man 17.6 H Nucleated RBC % Lymphocytes # (Manual) 0.6 L Monocytes # (Manual) PT INR Heparin Anti-Xa Level POC ABG pO2 ABG pH ABG Hemoglobin ABG Oxyhemoglobin ABG pO2 ABG HCO3 ABG O2 Saturation ABG Base Excess Sodium Potassium 3.2 L D Chloride Carbon Dioxide BUN Creatinine Glucose POC Glucose 204 H Lactic Acid Calcium AST Phosphorus Total Protein Albumin C-Reactive Protein Urine WBC (Auto) 02/03/20 02/03/20 02/03/20 05:14 05:14 05:20 WBC RBC Hgb Hct MCHC RDW Plt Count Lymph % (Auto) Lymph # Seg Neutrophils % Seg Neuts % (Manual) Lymphocytes % (Manual) Seg Neutrophils # Seg Neutrophils # Man Nucleated RBC % Lymphocytes # (Manual) Monocytes # (Manual) PT INR Heparin Anti-Xa Level POC ABG pO2 ABG pH ABG Hemoglobin ABG Oxyhemoglobin ABG pO2 ABG HCO3 ABG O2 Saturation ABG Base Excess Sodium Potassium 3.1 L Chloride Carbon Dioxide 33 H BUN 29 H Creatinine 0.5 L Glucose 160 H POC Glucose 146 H Lactic Acid Calcium 7.9 L AST Phosphorus 2.30 L Total Protein 4.8 L Albumin 2.4 L C-Reactive Protein Urine WBC (Auto) 02/03/20 02/03/20 02/03/20 12:35 18:14 23:26 WBC RBC Hgb Hct MCHC RDW Plt Count Lymph % (Auto) Lymph # Seg Neutrophils % Seg Neuts % (Manual) Lymphocytes % (Manual) Seg Neutrophils # Seg Neutrophils # Man Nucleated RBC % Lymphocytes # (Manual) Monocytes # (Manual) PT INR Heparin Anti-Xa Level POC ABG pO2 ABG pH ABG Hemoglobin ABG Oxyhemoglobin ABG pO2 ABG HCO3 ABG O2 Saturation ABG Base Excess Sodium Potassium Chloride Carbon Dioxide BUN Creatinine Glucose POC Glucose 219 H 248 H 173 H Lactic Acid Calcium AST Phosphorus Total Protein Albumin C-Reactive Protein Urine WBC (Auto) 02/04/20 02/04/20 02/04/20 05:34 05:36 06:51 WBC RBC Hgb Hct MCHC RDW Plt Count Lymph % (Auto) Lymph # Seg Neutrophils % Seg Neuts % (Manual) Lymphocytes % (Manual) Seg Neutrophils # Seg Neutrophils # Man Nucleated RBC % Lymphocytes # (Manual) Monocytes # (Manual) PT INR Heparin Anti-Xa Level POC ABG pO2 ABG pH ABG Hemoglobin ABG Oxyhemoglobin ABG pO2 ABG HCO3 ABG O2 Saturation ABG Base Excess Sodium Potassium Chloride Carbon Dioxide BUN Creatinine Glucose POC Glucose 56 L 64 L 127 H Lactic Acid Calcium AST Phosphorus Total Protein Albumin C-Reactive Protein Urine WBC (Auto) 02/04/20 11:57 WBC RBC Hgb Hct MCHC RDW Plt Count Lymph % (Auto) Lymph # Seg Neutrophils % Seg Neuts % (Manual) Lymphocytes % (Manual) Seg Neutrophils # Seg Neutrophils # Man Nucleated RBC % Lymphocytes # (Manual) Monocytes # (Manual) PT INR Heparin Anti-Xa Level POC ABG pO2 ABG pH ABG Hemoglobin ABG Oxyhemoglobin ABG pO2 ABG HCO3 ABG O2 Saturation ABG Base Excess Sodium Potassium Chloride Carbon Dioxide BUN Creatinine Glucose POC Glucose 224 H Lactic Acid Calcium AST Phosphorus Total Protein Albumin C-Reactive Protein Urine WBC (Auto) Chest x-ray: report reviewed, image reviewed Additional Studies: CHEST 1 VIEW 02/03/2020 3:31 AM INDICATION / CLINICAL INFORMATION: follow up respiratory failure. COMPARISON: 02/02/2020 FINDINGS: SUPPORT DEVICES: Stable, satisfactory device positioning. HEART / MEDIASTINUM: Stable. LUNGS / PLEURA: No significant pulmonary or pleural abnormality. No pneumothorax. ADDITIONAL FINDINGS: Stable elevation left hemidiaphragm. IMPRESSION: 1. No acute findings. Allied health notes reviewed: nursing
[2020-02-04 14:05] LABS: Hematocrit 23.5 % (30.3-42.9); Hemoglobin 7.8 gm/dl (10.1-14.3); Mean Corpuscular HGB Conc 33 % (30-34); Mean Corpuscular Volume 95 fl (79-97); Platelet Count 254 K/mm3 (140-440); Red Blood Count 2.48 M/mm3 (3.65-5.03)
[2020-02-04 14:14] LABS: Red Cell Distribution Width 24.2 % (13.2-15.2)
[2020-02-04 14:25] LABS: BUN/Creatinine Ratio 66; Blood Urea Nitrogen 33 mg/dL (7-17); Calcium 8.5 mg/dL (8.4-10.2); Hemolysis Index 2
[2020-02-04] MEDS ORDERED: POTASSIUM CHLORIDE ER 20 MEQ TAB PO ONE (14:31)
[2020-02-04] MEDS: POTASSIUM CHLORIDE 20 MEQ 20 MEQ/100 ML BAG IV SCH ×2 (15:06→16:04)
[2020-02-04 15:40] LABS: Total Cells Counted 100
[2020-02-04 15:41] LABS: Basophils % (Manual) 0 % (0.0-1.8); Eosinophils % (Manual) 0 % (0.0-4.3)
[2020-02-04 15:42] LABS: Anisocytosis 2+; Hypochromasia Few; Poikilocytosis Few
[2020-02-04 15:43] LABS: Burr Cells Rare; Ovalocytes Few; Platelet Estimate Consistent w Auto; Schistocytes Few; Target Cells Rare
--- NOTE | 2020-02-04 15:56 | Progress Note ---
Assessment and Plan Assessment and plan: --Acute respiratory failure, status post extubation 02/02/2020 On BiPAP this morning ,Ventimask/nasal cannula oxygen Titrate O2 sats to more than 90%, wean oxygen as tolerated Pulmonary critical following --Shock/ septic shock Monitor off Levophed, wean as tolerated --Persistent severe hypokalemia; replenished with oral and IV KCl Check electrolytes, maintenance daily dose of KCl -- s/p PEA cardiac arrest CPR per ACLS protocol with ROSC Check code record Intubated on vent, now extubated -- Hydropneumothorax, not POA Patient developed hydropneumothorax on 01/15. Surgery evaluated s/p chest tube placed on 01/15. Improved, s/p chest tube removed 01/22, extubated 02/02/2020 Patient is using nasal cannula oxygen/BiPAP and Ventimask as needed -- large Left pleural effusion 01/25 Continue supportive care, pulmonary following -- Hypernatremia, Resolved -- Sepsis, likely UTI and infected Sacral decubitus ulcer On zosyn now, cont to Monitor vital signs closely -- UTI (urinary tract infection) Completed antibiotics --h/o Bilateral pulmonary embolism Had pulmonary embolism 7 months ago. CTA chest and LE doppler showed no acute PE or DVT eliquis now stopped --Sacral decubitus ulcer, infected/POA s/p wound debridement on 01/15. Wound vac in place ID recommend zosyn 4.5 g IV q8h total 6 weeks stop date 02/27/2020 -- Uncontrolled diabetes mellitus DM management with SSI, TF -- Dementia: Continue donepezil --Severe protein-calorie malnutrition She is not eating well and is getting feeds through the NG tube. Discussed with - this problem has been chronic agreed for PEG PEG placed 01/13. Now on tube feeds --DVT prophylaxis SCDs Physical therapy occupational therapy Will contact patient's today unable to reach him left voicemail to call back The high probability of a clinically significant, sudden or life threatening deterioration of the [Respiratory, ADDICTION SOCIAL WORKER, CVs] system(s) required my full and direct attention, intervention and personal management. The aggregate critical care time was [32] minutes. This time is in addition to time spent performing reported procedures but includes the following: [x] Data Review and interpretation [x] Patient assessment and monitoring of vital signs [x] Documentation [x] Medication orders and management Monitor closely and adjust management as needed Plan of care reviewed with the patient's nurse Patient may be transferred out of ICU to [facility] Plan of care reviewed with the patient's nurse 02/02; patient was extubated on 02/02/2020, currently on Ventimask 02/03; patient feels slightly better saturating well on Ventimask/BiPAP as needed Hypo-kalemia replenish per protocol Full CODE STATUS History Interval history: I have seen and examined the patient in [facility] this morning Patient was receiving BiPAP treatment at the time of my evaluation Patient is in mild distress Vital signs reviewed Hospitalist Physical - Constitutional Vitals: Temp Pulse Resp BP Pulse Ox 97.9 F 99 H 22 91/64 93 02/04/20 12:00 02/04/20 15:04 02/04/20 15:04 02/04/20 15:04 02/04/20 15:04 General appearance: Present: mild distress, well-nourished, other (On BiPAP) - EENT Eyes: Present: PERRL, EOM intact - Neck Neck: Present: supple, normal ROM - Respiratory Respiratory effort: normal Respiratory: bilateral: diminished, rhonchi, negative: rales, wheezing - Cardiovascular Rhythm: regular Heart Sounds: Present: S1 & S2 - Extremities Extremities: no ischemia, No edema - Abdominal General gastrointestinal: soft, non-tender, non-distended, normal bowel sounds - Integumentary Integumentary: Present: clear, warm - Psychiatric Psychiatric: appropriate mood/affect, cooperative - Neurologic Neurologic: CNII-XII intact, moves all extremities Results - Labs CBC & Chem 7: 02/04/20 13:53 02/04/20 13:53 Labs: Laboratory Last Values WBC 19.2 K/mm3 (4.5-11.0) H 02/04/20 13:53 RBC 2.48 M/mm3 (3.65-5.03) L 02/04/20 13:53 Hgb 7.8 gm/dl (10.1-14.3) L 02/04/20 13:53 Hct 23.5 % (30.3-42.9) L 02/04/20 13:53 MCV 95 fl (79-97) 02/04/20 13:53 MCH 32 pg (28-32) 02/04/20 13:53 MCHC 33 % (30-34) 02/04/20 13:53 RDW 24.2 % (13.2-15.2) H 02/04/20 13:53 Plt Count 254 K/mm3 (140-440) 02/04/20 13:53 Lymph % (Auto) 12.7 % (13.4-35.0) L 01/27/20 06:30 [place] % (Auto) 3.9 % (0.0-7.3) 01/27/20 06:30 Eos % (Auto) 0.1 % (0.0-4.3) 01/27/20 06:30 Baso % (Auto) 0.1 % (0.0-1.8) 01/27/20 06:30 Lymph # 1.3 K/mm3 (1.2-5.4) 01/27/20 06:30 [place] # 0.4 K/mm3 (0.0-0.8) 01/27/20 06:30 Eos # 0.0 K/mm3 (0.0-0.4) 01/27/20 06:30 Baso # 0.0 K/mm3 (0.0-0.1) 01/27/20 06:30 Add Manual Diff Complete 02/04/20 13:53 Total Counted 100 02/04/20 13:53 Seg Neutrophils % Taxi Driver Supervisor 02/04/20 13:53 Seg Neutrophils # 8.4 K/mm3 (1.8-7.7) H 01/27/20 06:30 Seg Neuts % (Manual) 97.0 % (40.0-70.0) H 02/04/20 13:53 Band Neutrophils % 0 % 02/04/20 13:53 Lymphocytes % (Manual) 2.0 % (13.4-35.0) L 02/04/20 13:53 Reactive Lymphs % (Man) 0 % 02/04/20 13:53 Monocytes % (Manual) 1.0 % (0.0-7.3) 02/04/20 13:53 Eosinophils % (Manual) 0 % (0.0-4.3) 02/04/20 13:53 Basophils % (Manual) 0 % (0.0-1.8) 02/04/20 13:53 Metamyelocytes % 0 % 02/04/20 13:53 Myelocytes % 0 % 02/04/20 13:53 Promyelocytes % 0 % 02/04/20 13:53 Blast Cells % 0 % 02/04/20 13:53 Nucleated RBC % Not Reportable 02/04/20 13:53 Seg Neutrophils # Man 18.6 K/mm3 (1.8-7.7) H 02/04/20 13:53 Band Neutrophils # 0.0 K/mm3 02/04/20 13:53 Lymphocytes # (Manual) 0.4 K/mm3 (1.2-5.4) L 02/04/20 13:53 Abs React Lymphs (Man) 0.0 K/mm3 02/04/20 13:53 Monocytes # (Manual) 0.2 K/mm3 (0.0-0.8) 02/04/20 13:53 Eosinophils # (Manual) 0.0 K/mm3 (0.0-0.4) 02/04/20 13:53 Basophils # (Manual) 0.0 K/mm3 (0.0-0.1) 02/04/20 13:53 Metamyelocytes # 0.0 K/mm3 02/04/20 13:53 Myelocytes # 0.0 K/mm3 02/04/20 13:53 Promyelocytes # 0.0 K/mm3 02/04/20 13:53 Blast Cells # 0.0 K/mm3 02/04/20 13:53 WBC Morphology Not Reportable 02/04/20 13:53 Hypersegmented Neuts Not Reportable 02/04/20 13:53 Hyposegmented Neuts Not Reportable 02/04/20 13:53 Hypogranular Neuts Not Reportable 02/04/20 13:53 Smudge Cells Not Reportable 02/04/20 13:53 Toxic Granulation Not Reportable 02/04/20 13:53 Toxic Vacuolation Not Reportable 02/04/20 13:53 Dohle Bodies Not Reportable 02/04/20 13:53 Pelger-Huet Anomaly Not Reportable 02/04/20 13:53 [place] Rods Not Reportable 02/04/20 13:53 Platelet Estimate Consistent w auto 02/04/20 13:53 Clumped Platelets Not Reportable 02/04/20 13:53 Plt Clumps, EDTA Not Reportable 02/04/20 13:53 Large Platelets Not Reportable 02/04/20 13:53 Giant Platelets Not Reportable 02/04/20 13:53 Platelet Satelliting Not Reportable 02/04/20 13:53 Plt Morphology Comment Not Reportable 02/04/20 13:53 RBC Morphology Not Reportable 02/04/20 13:53 Dimorphic RBCs Not Reportable 02/04/20 13:53 Polychromasia Rare 02/04/20 13:53 Hypochromasia Few 02/04/20 13:53 Poikilocytosis Few 02/04/20 13:53 Anisocytosis 2+ 02/04/20 13:53 Microcytosis Not Reportable 02/04/20 13:53 Macrocytosis Not Reportable 02/04/20 13:53 Spherocytes Not Reportable 02/04/20 13:53 Pappenheimer Bodies Not Reportable 02/04/20 13:53 Sickle Cells Not Reportable 02/04/20 13:53 Target Cells Rare 02/04/20 13:53 Tear Drop Cells Not Reportable 02/04/20 13:53 Ovalocytes Few 02/04/20 13:53 Helmet Cells Not Reportable 02/04/20 13:53 [place] Bodies Not Reportable 02/04/20 13:53 [place] Rings Not Reportable 02/04/20 13:53 [place] Cells Rare 02/04/20 13:53 Bite Cells Not Reportable 02/04/20 13:53 Crenated Cell Not Reportable 02/04/20 13:53 Elliptocytes Not Reportable 02/04/20 13:53 Acanthocytes (Spur) Not Reportable 02/04/20 13:53 Rouleaux Not Reportable 02/04/20 13:53 Hemoglobin C Crystals Not Reportable 02/04/20 13:53 Schistocytes Few 02/04/20 13:53 Malaria parasites Not Reportable 02/04/20 13:53 [place] Bodies Not Reportable 02/04/20 13:53 Hem Pathologist Commnt No 02/04/20 13:53 APTT 33.9 Sec. (24.2-36.6) 01/26/20 16:30 PT 14.4 Sec. (12.2-14.9) 02/02/20 05:25 INR 1.11 (0.87-1.13) 02/02/20 05:25 Heparin Anti-Xa Level 0.74 U.I./ml (0.3-0.7) H 01/28/20 08:50 ABG pH 7.525 (7.320-7.450) H 02/04/20 13:42 POC ABG pCO2 39.7 mmHg (32.0-48.0) 02/04/20 13:42 ABG pCO2 33.6 mm Hg 02/01/20 03:14 POC ABG pO2 118.2 mmHg (83-108) H 02/04/20 13:42 ABG pO2 124.1 mm Hg (80.0-90.0) H 02/01/20 03:14 POC ABG HCO3 32.1 02/04/20 13:42 ABG HCO3 29.6 mmol/L (20.0-26.0) H 02/01/20 03:14 ABG O2 Saturation 98.7 % (95.0-99.0) 02/01/20 03:14 ABG O2 Content 10.6 (0.0-44) 02/01/20 03:14 POC ABG Base Excess 8.6 02/04/20 13:42 ABG Base Excess 7.0 mmol/L (-2.0-3.0) H 02/01/20 03:14 ABG Hemoglobin 8.7 (12.0-17.5) L 02/04/20 13:42 ABG Oxyhemoglobin 96.7 (94-98) 02/02/20 14:45 ABG Carboxyhemoglobin 1.4 % (0.0-5.0) 02/01/20 03:14 ABG Methemoglobin 0.3 (0.0-1.5) 02/02/20 14:45 ABG Sodium 138.6 mmol/L (136.0-145.0) 02/04/20 13:42 ABG Potassium 2.8 mmol/L (3.40-4.50) L 02/04/20 13:42 ABG Chloride 106.0 mmol/L (98-107) 02/04/20 13:42 ABG Glucose 185 mg/dL (65-95) H 02/04/20 13:42 Oxyhemoglobin 96.6 % (95.0-99.0) 02/01/20 03:14 Carboxyhemoglobin 1.0 (0.5-1.5) 02/02/20 14:45 FiO2 80.0 02/04/20 13:42 Sodium 147 mmol/L (137-145) H 02/04/20 13:53 Potassium 2.8 mmol/L (3.6-5.0) L* 02/04/20 13:53 Chloride 102.3 mmol/L (98-107) 02/04/20 13:53 Carbon Dioxide 38 mmol/L (22-30) H 02/04/20 13:53 Anion Gap 10 mmol/L 02/04/20 13:53 BUN 33 mg/dL (7-17) H 02/04/20 13:53 Creatinine 0.5 mg/dL (0.6-1.2) L 02/04/20 13:53 Estimated GFR > 60 ml/min 02/04/20 13:53 BUN/Creatinine Ratio 66 % 02/04/20 13:53 Glucose 202 mg/dL (65-100) H 02/04/20 13:53 POC Glucose 224 (70-105) H 02/04/20 11:57 Hemoglobin A1c 5.3 % (4-6) 01/11/20 00:45 Lactic Acid 1.30 mmol/L (0.7-2.0) 01/26/20 23:27 Calcium 8.5 mg/dL (8.4-10.2) 02/04/20 13:53 Phosphorus 2.30 mg/dL (2.5-4.5) L 02/03/20 05:14 Magnesium 2.30 mg/dL (1.7-2.3) 02/04/20 Unknown Total Bilirubin 0.20 mg/dL (0.1-1.2) 02/03/20 05:14 AST 21 units/L (5-40) 02/03/20 05:14 ALT 22 units/L (7-56) 02/03/20 05:14 Alkaline Phosphatase 62 units/L (35-129) 02/03/20 05:14 C-Reactive Protein 14.80 mg/dL (0.00-1.30) H 01/29/20 Unknown Total Protein 4.8 g/dL (6.3-8.2) L 02/03/20 05:14 Albumin 2.4 g/dL (3.9-5) L 02/03/20 05:14 Albumin/Globulin Ratio 1.0 % 02/03/20 05:14 TSH 2.440 mlU/mL (0.270-4.200) 01/10/20 10:10 Procalcitonin 1.86 ng/mL (<0.15) 01/29/20 Unknown Arterial Blood Glucose 185 mg/dL (65-95) H 02/04/20 13:42 Arterial Blood Ionized Calcium 4.5 mg/dL (4.6-5.3) L 02/04/20 13:42 Urine Color [place] (Yellow) 01/08/20 Unknown Urine Turbidity Cloudy (Clear) 01/08/20 Unknown Urine pH 5.0 (5.0-7.0) 01/08/20 Unknown Ur Specific [place] 1.018 (1.003-1.030) 01/08/20 Unknown Urine Protein 30 mg/dl mg/dL (Negative) 01/08/20 Unknown Urine Glucose (UA) Neg mg/dL (Negative) 01/08/20 Unknown Urine Ketones Neg mg/dL (Negative) 01/08/20 Unknown Urine Blood Mod (Negative) 01/08/20 Unknown Urine Nitrite Neg (Negative) 01/08/20 Unknown Urine Bilirubin Neg (Negative) 01/08/20 Unknown Urine Urobilinogen < 2.0 mg/dL (<2.0) 01/08/20 Unknown Ur Leukocyte Esterase Sm (Negative) 01/08/20 Unknown Urine WBC (Auto) 11.0 /HPF (0.0-6.0) H 01/08/20 Unknown Urine RBC (Auto) 7.0 /HPF (0.0-6.0) 01/08/20 Unknown U Epithel Cells (Auto) < 1.0 /HPF (0-13.0) 01/08/20 Unknown Urine Bacteria (Auto) 1+ /HPF (Negative) 01/08/20 Unknown Urine Mucus 2+ /HPF 01/08/20 Unknown Urine Yeast (Budding) 1+ /HPF 01/08/20 Unknown Vancomycin Trough 7.9 ug/mL (5.0-20.0) 01/17/20 16:04 Mejía/IV: Voiding Method Incontinent IV Catheter Type [Left Upper PICC Line arm] IV Catheter Type [Right Upper Mid-line arm] IV Catheter Type [Right Peripheral IV Forearm] Active Medications - Current Medications Current Medications: Generic Name Dose Route Start Last Admin Trade Name Freq PRN Reason Stop Dose Admin Acetaminophen 650 mg 01/08/20 23:14 01/18/20 06:03 Tylenol PO 650 mg Q4H PRN Administration Pain MILD(1-3)/Fever >100.5/GARCIA Lipase/Protease/Amylase 1 each 01/17/20 08:37 Pancreaze 10,500 Unit FEEDTUBE PRN PRN For Clogged Feeding Tube Atorvastatin Calcium 10 mg 01/09/20 22:00 02/03/20 22:31 Atorvastatin PO 10 mg QHS BRO Administration Dextrose 0 ml 01/08/20 23:14 02/04/20 06:12 D50w (25gm) Syringe IV 15 ml Q30MIN PRN Administration Hypoglycemia Protocol Donepezil HCl 10 mg 01/09/20 22:00 02/03/20 22:25 Aricept PO 10 mg QHS BRO Administration Famotidine 20 mg 01/27/20 10:00 02/04/20 10:48 Pepcid PO 20 mg BID BRO Administration Fluticasone Propionate 100 mcg 01/25/20 20:00 01/26/20 06:09 Flonase NS 100 mcg QDAY PRN Administration Nasal Congestion Heparin Sodium (Porcine) 5,000 unit 01/28/20 10:00 02/04/20 10:50 Heparin SUB-Q 5,000 unit Q12HR BRO Administration Hydrocortisone Sodium Succinate 25 mg 02/04/20 10:00 02/04/20 10:48 Solu-Cortef IV 02/04/20 22:01 25 mg Q12HR BRO Administration Hydrophilic Ointment 1 applic 01/28/20 10:57 Vaseline Lip Therapy TP Q2HR PRN Dry Lips Piperacillin Sod/Tazobactam Sod 4.5 gm in 100 mls @ 200 mls/hr 01/19/20 14:00 02/04/20 13:05 Zosyn/Ns 4.5gm/100ml IV 02/27/20 22:29 200 mls/hr Q8HR BRO Administration Protocol Potassium Chloride 20 meq in 100 mls @ 100 mls/hr 02/04/20 15:00 02/04/20 15:06 Kcl 20meq/100ml IV 02/04/20 16:59 100 mls/hr Q1H BRO Administration Insulin Human Regular 0 unit 01/27/20 12:00 02/04/20 13:05 Humulin R SUB-Q 4 unit Q6HR [facility] Administration Protocol Magnesium Hydroxide 30 ml 01/08/20 23:14 Milk Of Magnesia PO Q4H PRN Constipation Megestrol Acetate 400 mg 01/12/20 11:00 02/04/20 10:48 Megestrol PO 400 mg QDAY BRO Administration Mirtazapine 15 mg 01/09/20 22:00 02/03/20 22:26 Remeron PO 15 mg QHS BRO Administration Multi-Ingred Cream/Lotion/Oil/Oint 1 applic 01/28/20 10:57 Artificial Tears Ophth Oint OU Q4HR PRN Dry Eye(s) Ondansetron HCl 4 mg 01/08/20 23:14 Zofran IV Q8H PRN Nausea And Vomiting Scopolamine 1 each 02/05/20 10:00 Transderm-Scop TD Q3D BRO Simple Syrup 15 ml 01/17/20 08:37 Simple Syrup FEEDTUBE PRN PRN Hypoglycemia Simple Syrup 30 ml 01/17/20 08:37 Simple Syrup FEEDTUBE PRN PRN Hypoglycemia Sodium Bicarbonate 325 mg 01/17/20 08:37 Sodium Bicarbonate FEEDTUBE PRN PRN For Clogged Feeding Tube Sodium Chloride 10 ml 01/09/20 10:00 02/04/20 10:50 Sodium Chloride Flush Syringe 10 Ml IV 10 ml BID BRO Administration Sodium Chloride 10 ml 01/08/20 23:14 Sodium Chloride Flush Syringe 10 Ml IV PRN PRN LINE FLUSH Trazodone HCl 25 mg 01/09/20 22:00 02/04/20 02:11 Desyrel PO Not Given QHS [facility] Nutrition/Malnutrition Assess - Dietary Evaluation Nutrition/Malnutrition Findings: Nutrition Notes Start: 01/09/20 12:13 Freq: Status: Active Protocol: Document 02/03/20 11:26 [email or web address] (Rec: 02/03/20 13:23 [email or web address]) Co-Sign 02/03/20 11:26 NHALL Nutrition Notes Initial or Follow up Reassessment Current Diagnosis Decubitus(Pressure Ulcer), Diabetes,Sepsis Other Pertinent Diagnosis UTI, dementia, PE, Sacral wound Current Diet Vital AF 1.2 at 50ml/hr Labs/Tests K 3.1 BUN 29 BG 160 Pertinent Medications Solucortef KCl 20mEq Height 5 ft 2 in Weight 65 kg [place] Body Weight (kg) 50.00 BMI 26.2 Weight change and time frame Wt change noted. Pt has edema Subjective/Other Information F/U for TF tolerance. Pt extubated yesterday. No TF running at time of visit. Per RN, TF running at goal rate Burn Absent Trauma Absent Current % PO Negligible Minimum of two criteria Yes Fluid Accumulation Moderate to Severe (severe) Reduced Vice President Of Communications Strength Measurably Reduced (severe) #3 Nutrition Diagnosis Malnutrition Diagnosis Progress(for reassessment Continues documentation) #2 Nutrition Diagnosis Inadequate oral intake Diagnosis Progress(for reassessment Continues documentation) #1 Nutrition Diagnosis Increased nutrient needs ( specify in comment below) Diagnosis Progress(for reassessment Continues documentation) Is patient on ventilator? No Is Patient Ambulatory and/or Out of Bed No REE-([place]-St. Jeor-confined to bed) 1353.840 Kcal/Kg value to use for calculation 24 Approximate Energy Requirements Using 1560 kcal/Kg Calculation Used for Recommendations Kcal/kg Additional Notes Protein Needs: 81-98g(1.25-1.5 ) Fluid Needs: 1ml/kcal Nutrition Intervention Change Diet Order: Continue Nutrition Support: Vital AF 1.2 at 50ml/hr Flush 200ml q4h per MD Kcal 1,440 Protein (gm) 90 Fluid (mL) 973 Goal #1 Meet at least 80% of kcal and protein needs via TF Goal #2 TF tolerance Goal #3 Wound Healing Anticipated Discharge Needs: Continue TF Follow-Up By: 02/10/20 Additional Comments F/U TF tolerance
--- NOTE | 2020-02-04 17:16 | XRay Report ---
CHEST 1 VIEW 02/04/2020 1:45 PM INDICATION / CLINICAL INFORMATION: Acute hypoxemic Resp failure. COMPARISON: 02/03/2020 FINDINGS: SUPPORT DEVICES: Left PICC line again projects over SVC HEART / MEDIASTINUM: Remains enlarged LUNGS / PLEURA: Chronic elevation left hemidiaphragm again noted. New moderate bilateral pleural effu sions and pulmonary edema has developed No pneumothorax. ADDITIONAL FINDINGS: No significant additional findings. IMPRESSION: 1. New onset moderate CHF Signer Name: Wayne Car MD Signed: 02/04/2020 5:12 PM Workstation Name: [id number]
[2020-02-04] MEDS: MIRTAZAPINE 15 MG TAB PO SCH (21:03)
[2020-02-04] MEDS: DONEPEZIL 10 MG TAB PO SCH (21:03)
[2020-02-05] MEDS ORDERED: EPINEPHrine 1 MG/10 ML SYRINGE ONE (00:02)
[2020-02-05] MEDS ORDERED: MAGNESIUM SULFATE 1 GM/2ML (4 MEQ/1ML) INJ ONE (00:02)
--- NOTE | 2020-02-05 00:15 | Emergency Department Report ---
Blank Doc - Documentation Documentation: CODE MEÑO called and upon arrival the patient had received 1 mg of epinephrine and chest compressions were being done. On pulse check the patient had a pulse with a heart rate approximately 140 bpm. Patient was being bagged and not breathing on her own thus intubation was done. Chest x-ray has been ordered and will be followed by the hospitalist.
--- NOTE | 2020-02-05 00:17 | Procedure Note ---
Date of procedure: 02/05/20 Pre-op diagnosis: Respiratory failure Post-op diagnosis: same Procedure: 7.5 ET tube was placed with assistance of a glide scope. There was one failed attempt by another staff member prior to me obtaining the airway. There was good color change on CO2 detector. There was condensation in the tube. Chest x-ray has been ordered and will be reviewed by the hospitalist for confirmation of placement. Estimated blood loss: none Pathology: none
[2020-02-05] MEDS ORDERED: NORepinephrine/NS 4 MG-250 ML 4 MG/250 ML BAG IV ONE (00:21)
--- NOTE | 2020-02-05 00:23 | Event Note ---
Date: 02/05/20 JAKE WILDER called on patient who has been in the ICU for acute respiratory distress, septic shock. She had gone into PEA. Resuscitative measures going by ACLS protocol was immediately commenced and patient had 1 round of epinephrine with spontaneous return of circulation. Patient was subsequently intubated by the ER physician. We will schedule patient for chest x-ray, ABG and chemistry. We will continue on current management and monitor closely in the intensive care unit.
[2020-02-05 01:14] LABS: ABG Base Excess 4.8 mmol/L (-2.0-3.0); ABG HCO3 29.6 mmol/L (20.0-26.0); ABG Methemoglobin 0.5 % (0.0-1.5); ABG Oxygen Saturation 82.7 % (95.0-99.0); ABG PCO2 46.1 mm Hg; ABG PH 7.426 pH Units (7.350-7.450); ABG PO2 50.7 mm Hg (80.0-90.0)
--- NOTE | 2020-02-05 01:14 | XRay Report ---
CHEST 1 VIEW 02/05/2020 12:07 AM INDICATION / CLINICAL INFORMATION: ETT PLACEMENT. COMPARISON: 02/04/2020 FINDINGS: SUPPORT DEVICES: ET tube tip about 3 cm above the jennifer. Stable left upper extremity PICC. HEART / MEDIASTINUM: Stable. LUNGS / PLEURA: Stable [id number] bilateral pleural effusions. No pneumothorax. ADDITIONAL FINDINGS: No significant additional findings. IMPRESSION: 1. Endotracheal tube in expected position. Signer Name: Sundar Spring MD Signed: 02/05/2020 1:09 AM Workstation Name: [id number]
[2020-02-05] MEDS: INSULIN REGULAR, HUMAN 100 UNIT/ML 3ML VIAL SUB-Q SCH ×4 (01:46→18:06)
[2020-02-05] MEDS: NORepinephrine/NS 4 MG-250 ML 4 MG/250 ML BAG IV SCH ×4 (01:56→19:44)
[2020-02-05] MEDS: PIPERACIL/TAZOBACTA 4.5/NS 100 4.5 GM/100 ML VIAL IV SCH ×3 (05:37→21:13)
[2020-02-05 06:15] LABS: Alanine Aminotransferase 26 units/L (7-56); Albumin 2.2 g/dL (3.9-5); Blood Urea Nitrogen 35 mg/dL (7-17); Calcium 8.6 mg/dL (8.4-10.2); Hemolysis Index 2
[2020-02-05 06:16] LABS: BUN/Creatinine Ratio 70
[2020-02-05 06:19] LABS: Hematocrit 24.6 % (30.3-42.9); Hemoglobin 8.1 gm/dl (10.1-14.3); Mean Corpuscular HGB Conc 33 % (30-34); Mean Corpuscular Volume 95 fl (79-97); Platelet Count 250 K/mm3 (140-440); Red Blood Count 2.59 M/mm3 (3.65-5.03)
[2020-02-05 06:20] LABS: Basophils # (Auto) 0.1 K/mm3 (0.0-0.1); Basophils % (Auto) 0.2 % (0.0-1.8); Lymphocytes # (Auto) 0.4 K/mm3 (1.2-5.4); Lymphocytes % (Auto) 1.6 % (13.4-35.0); Monocytes # (Auto) 0.3 K/mm3 (0.0-0.8); Monocytes % (Auto) 1.2 % (0.0-7.3); Red Cell Distribution Width 24.1 % (13.2-15.2)
[2020-02-05] MEDS: SCOPOLAMINE TRANSDERMAL PATCH 72 HR TD SCH (10:00)
[2020-02-05] MEDS: FAMOTIDINE 20 MG TAB PO SCH ×2 (10:00→21:12)
[2020-02-05] MEDS: HEPARIN 5,000 UNIT/1 ML VIAL SUB-Q SCH ×2 (10:00→21:13)
[2020-02-05] MEDS: MEGESTROL 400 MG/10 ML ORAL LIQD PO SCH (10:00)
--- NOTE | 2020-02-05 11:01 | Progress Note ---
Assessment and Plan Severe sepsis with shock. Left lung atelectasis. Left pleural effusion. Acute hypoxemic respiratory failure on MVS s/p Cardiopulamanry arrest with ROSC x2 Severe sepsis with shock Acute possibly on chronic encephalopathy. History of diabetes. Urinary tract infection. History of pulmonary embolism, diagnosed several months ago. Sacral decubitus ulcer. Dementia. Anemia that is normocytic. -Discussed with her , updated him on her current status. He has asked to visit her. -Wean vasopressor support, for MAP >65, currently on Norepinephrine at 8mcg -IF fluid bolus 250ml Lactate Ringers -VAP bundle addressed -Wean FIO2 for O2 sats >92%, currently on FIO2 of 80% -Aspiration precautions, HOB >40 -Enteric nutritional support- has a PEG - continue bronchodilators with pulmonary hygiene per RT - continue accuchecks with glycemic control per SSI (While critically ill target blood glucose of 140-180 mg/dL; avoid hypoglycemia) - avoid nephrotoxins, renally dose all medications - continue to avoid benzodiazepines, reduce the possibility of delirium - complete antibiotics per per ID - prn analgesia per CPOT score - Maintenance of sleep-wake cycle, avoid delirium -VTE prophylaxis with Heparin - Stress ulcer prophylaxis with famotidine - PT/OT/ROM exercises - continue mobility protocol, frequent turning and off loading to prevent further pressure ulcers -Wound care with wound vac - Monitor hemodynamics closely -Free water flushes for hypernatremia -Supportive transfusions as indicated to keep HgB >7g/dL - continue other care per attending / other consultants CONDITION: CRITICAL PROGNOSIS: GUARDED CODE STATUS: FULL CODE The high probability of a clinically significant, sudden or life-threatening deterioration of the [respiratory, cardiovascular & neurologic] system(s) required my full and direct attention, intervention and personal management. The aggregate critical care time was [35] minutes without overlap. Time includes spent on; [x] Data Review and interpretation [x] Patient assessment and monitoring of vital signs [x] Documentation [x] Medication orders and management Subjective Date of service: 02/05/20 Principal diagnosis: Septic Shock; S/P Cardiac Arrest; Ac. hypoxemic resp failure; UTI Interval history: Patient is seen today for: PEA arrest with ROSC, now orally intubated on MVS; Severe sepsis with shock;Acute hypoxemic respiratory failure; Acute possibly on chronic encephalopathy; DM II; UTI; VTE Seen and examined at bedside; 24hour events reviewed; nursing and respiratory care staff consulted; no adverse overnight events reported to me; resting peacefully in bed;s/p Bradycardia with PEA arrest with ROSC overnight requiring oral intubation. No fevers, no vomiting. Orally intubated, awake and alert. . Objective Vital Signs - 12hr 02/04/20 02/04/20 02/05/20 23:30 23:57 00:00 Temperature 96.0 F L Pulse Rate 75 Pulse Rate [ 150 H From Monitor] Pulse Rate [ 150 H Right Dorsalis Pedis] Respiratory 32 H 33 H 16 Rate Blood Pressure 120/61 94/57 O2 Sat by Pulse 93 87 92 Oximetry 02/05/20 02/05/20 02/05/20 00:01 00:08 00:15 Temperature Pulse Rate 166 H Pulse Rate [ From Monitor] Pulse Rate [ Right Dorsalis Pedis] Respiratory 30 H 32 H Rate Blood Pressure 120/61 92/40 63/35 O2 Sat by Pulse 95 88 97 Oximetry 02/05/20 02/05/20 02/05/20 00:30 00:40 01:00 Temperature Pulse Rate 159 H 141 H 166 H Pulse Rate [ From Monitor] Pulse Rate [ Right Dorsalis Pedis] Respiratory 28 H 20 Rate Blood Pressure 94/57 93/63 120/60 O2 Sat by Pulse 100 94 Oximetry 02/05/20 02/05/20 02/05/20 01:31 02:00 02:30 Temperature Pulse Rate 136 H 154 H 146 H Pulse Rate [ From Monitor] Pulse Rate [ Right Dorsalis Pedis] Respiratory 23 22 18 Rate Blood Pressure 95/28 95/65 99/42 O2 Sat by Pulse 98 100 100 Oximetry 02/05/20 02/05/20 02/05/20 03:00 03:30 04:00 Temperature Pulse Rate 127 H 143 H 135 H Pulse Rate [ 122 H From Monitor] Pulse Rate [ 122 H Right Dorsalis Pedis] Respiratory 18 15 21 Rate Blood Pressure 98/48 100/58 114/75 O2 Sat by Pulse 100 100 100 Oximetry 02/05/20 02/05/20 02/05/20 04:17 04:30 05:00 Temperature Pulse Rate 147 H 162 H 125 H Pulse Rate [ From Monitor] Pulse Rate [ Right Dorsalis Pedis] Respiratory 17 13 Rate Blood Pressure 109/73 109/75 128/68 O2 Sat by Pulse 100 100 100 Oximetry 02/05/20 02/05/20 02/05/20 05:30 06:00 06:01 Temperature 94.9 F L Pulse Rate 100 H 96 H Pulse Rate [ From Monitor] Pulse Rate [ Right Dorsalis Pedis] Respiratory 17 18 Rate Blood Pressure 115/65 120/65 O2 Sat by Pulse 100 100 Oximetry 02/05/20 02/05/20 02/05/20 06:30 07:00 07:31 Temperature Pulse Rate 76 72 70 Pulse Rate [ From Monitor] Pulse Rate [ Right Dorsalis Pedis] Respiratory 15 14 14 Rate Blood Pressure 109/51 103/52 107/56 O2 Sat by Pulse 100 100 100 Oximetry 02/05/20 02/05/20 02/05/20 08:00 08:20 08:30 Temperature Pulse Rate 90 91 H 87 Pulse Rate [ 90 From Monitor] Pulse Rate [ Right Dorsalis Pedis] Respiratory 24 26 H Rate Blood Pressure 138/77 104/64 115/60 O2 Sat by Pulse 100 100 100 Oximetry 02/05/20 02/05/20 02/05/20 09:00 09:30 10:00 Temperature Pulse Rate 86 85 87 Pulse Rate [ From Monitor] Pulse Rate [ Right Dorsalis Pedis] Respiratory 27 H 21 22 Rate Blood Pressure 101/53 98/52 105/58 O2 Sat by Pulse 100 100 100 Oximetry 02/05/20 10:30 Temperature Pulse Rate 87 Pulse Rate [ From Monitor] Pulse Rate [ Right Dorsalis Pedis] Respiratory 20 Rate Blood Pressure 93/52 O2 Sat by Pulse 100 Oximetry Constitutional: no acute distress, alert, other (elderly chronically ill looking female orally intubated to [facility]) Eyes: non-icteric ENT: oropharynx moist, other (ETT 7.5 cm at 22 [address]) Neck: supple, no lymphadenopathy Effort: normal Ascultation: Bilateral: clear, diminished breath sounds, rales (bases predominant), rhonchi (scant) Percussion: Bilateral: not dull Cardiovascular: regular rate and rhythm, other (S1,S2) Gastrointestinal: normoactive bowel sounds, soft, non-tender, other (PEG in place) Integumentary: decubitus ulcer Extremities: no cyanosis, pulses normal, no ischemia or petechiae, edema, other (bilateral upper extremity edema) Neurologic: pupils equal and round, other (awake and alert, not obeying commands) Psychiatric: other (Unable to assess secondary to mental status) CBC and BMP: 02/06/20 08:45 02/06/20 05:11 ABG, PT/INR, D-dimer: ABG ABG pH 7.426 pH Units (7.350-7.450) 02/05/20 01:03 POC ABG pCO2 39.7 mmHg (32.0-48.0) 02/04/20 13:42 ABG pCO2 46.1 mm Hg 02/05/20 01:03 POC ABG pO2 118.2 mmHg (83-108) H 02/04/20 13:42 ABG pO2 50.7 mm Hg (80.0-90.0) L 02/05/20 01:03 POC ABG HCO3 32.1 02/04/20 13:42 ABG O2 Saturation 82.7 % (95.0-99.0) L 02/05/20 01:03 PT/INR, D-dimer PT 14.4 Sec. (12.2-14.9) 02/02/20 05:25 INR 1.11 (0.87-1.13) 02/02/20 05:25 Abnormal lab findings: Abnormal Labs 01/08/20 01/08/20 01/08/20 16:29 16:29 16:29 WBC 13.5 H RBC Hgb Hct MCHC RDW 15.5 H Plt Count Lymph % (Auto) Lymph # Lymph # (Auto) Seg Neutrophils % Seg Neuts % (Manual) 85.0 H Lymphocytes % (Manual) 11.0 L Seg Neutrophils # Seg Neutrophils # Man 11.5 H Nucleated RBC % Lymphocytes # (Manual) Monocytes # (Manual) PT INR Heparin Anti-Xa Level POC ABG pO2 ABG pH ABG Hemoglobin ABG Oxyhemoglobin ABG pO2 ABG HCO3 ABG O2 Saturation ABG Base Excess ABG Potassium ABG Glucose Oxyhemoglobin Sodium 161 H* Potassium Chloride 125.5 H Carbon Dioxide 20 L BUN 30 H Creatinine Glucose 115 H POC Glucose Lactic Acid 2.20 H* Calcium 7.9 L AST 48 H Phosphorus Total Protein Albumin 2.5 L C-Reactive Protein Arterial Blood Glucose Arterial Blood Ionized Calcium Urine WBC (Auto) 01/08/20 01/08/20 01/08/20 19:02 23:30 Unknown WBC RBC Hgb Hct MCHC RDW Plt Count Lymph % (Auto) Lymph # Lymph # (Auto) Seg Neutrophils % Seg Neuts % (Manual) Lymphocytes % (Manual) Seg Neutrophils # Seg Neutrophils # Man Nucleated RBC % Lymphocytes # (Manual) Monocytes # (Manual) PT INR Heparin Anti-Xa Level POC ABG pO2 ABG pH ABG Hemoglobin ABG Oxyhemoglobin ABG pO2 ABG HCO3 ABG O2 Saturation ABG Base Excess ABG Potassium ABG Glucose Oxyhemoglobin Sodium Potassium Chloride Carbon Dioxide BUN Creatinine Glucose POC Glucose Lactic Acid 2.10 H* 2.50 H* Calcium AST Phosphorus Total Protein Albumin C-Reactive Protein Arterial Blood Glucose Arterial Blood Ionized Calcium Urine WBC (Auto) 11.0 H 01/09/20 01/09/20 01/09/20 00:19 00:54 05:52 WBC 13.5 H RBC 3.02 L Hgb 9.0 L D Hct 27.4 L D MCHC RDW Plt Count Lymph % (Auto) 9.1 L Lymph # Lymph # (Auto) Seg Neutrophils % 87.6 H Seg Neuts % (Manual) Lymphocytes % (Manual) Seg Neutrophils # 11.8 H Seg Neutrophils # Man Nucleated RBC % Lymphocytes # (Manual) Monocytes # (Manual) PT INR Heparin Anti-Xa Level POC ABG pO2 ABG pH ABG Hemoglobin ABG Oxyhemoglobin ABG pO2 ABG HCO3 ABG O2 Saturation ABG Base Excess ABG Potassium ABG Glucose Oxyhemoglobin Sodium Potassium Chloride Carbon Dioxide BUN Creatinine Glucose POC Glucose 118 H 116 H Lactic Acid Calcium AST Phosphorus Total Protein Albumin C-Reactive Protein Arterial Blood Glucose Arterial Blood Ionized Calcium Urine WBC (Auto) 01/09/20 01/09/20 01/09/20 05:52 05:52 13:03 WBC RBC Hgb Hct MCHC RDW Plt Count Lymph % (Auto) Lymph # Lymph # (Auto) Seg Neutrophils % Seg Neuts % (Manual) Lymphocytes % (Manual) Seg Neutrophils # Seg Neutrophils # Man Nucleated RBC % Lymphocytes # (Manual) Monocytes # (Manual) PT 17.1 H INR 1.36 H Heparin Anti-Xa Level POC ABG pO2 ABG pH ABG Hemoglobin ABG Oxyhemoglobin ABG pO2 ABG HCO3 ABG O2 Saturation ABG Base Excess ABG Potassium ABG Glucose Oxyhemoglobin Sodium 162 H* Potassium 3.0 L D Chloride 128.3 H Carbon Dioxide BUN 23 H Creatinine Glucose POC Glucose 55 L Lactic Acid Calcium 7.6 L AST Phosphorus Total Protein Albumin C-Reactive Protein Arterial Blood Glucose Arterial Blood Ionized Calcium Urine WBC (Auto) 01/09/20 01/09/20 01/09/20 21:22 21:50 22:28 WBC RBC Hgb Hct MCHC RDW Plt Count Lymph % (Auto) Lymph # Lymph # (Auto) Seg Neutrophils % Seg Neuts % (Manual) Lymphocytes % (Manual) Seg Neutrophils # Seg Neutrophils # Man Nucleated RBC % Lymphocytes # (Manual) Monocytes # (Manual) PT INR Heparin Anti-Xa Level POC ABG pO2 ABG pH ABG Hemoglobin ABG Oxyhemoglobin ABG pO2 ABG HCO3 ABG O2 Saturation ABG Base Excess ABG Potassium ABG Glucose Oxyhemoglobin Sodium 159 H Potassium 5.1 H D Chloride 128.5 H Carbon Dioxide 16 L BUN 23 H Creatinine Glucose 51 L POC Glucose 52 L 106 H Lactic Acid Calcium 8.2 L AST Phosphorus Total Protein Albumin C-Reactive Protein Arterial Blood Glucose Arterial Blood Ionized Calcium Urine WBC (Auto) 01/10/20 01/10/20 01/10/20 05:23 09:11 10:10 WBC 13.4 H RBC Hgb Hct MCHC RDW Plt Count Lymph % (Auto) 7.2 L Lymph # 1.0 L Lymph # (Auto) Seg Neutrophils % 90.0 H Seg Neuts % (Manual) Lymphocytes % (Manual) Seg Neutrophils # 12.0 H Seg Neutrophils # Man Nucleated RBC % Lymphocytes # (Manual) Monocytes # (Manual) PT INR Heparin Anti-Xa Level POC ABG pO2 ABG pH ABG Hemoglobin ABG Oxyhemoglobin ABG pO2 ABG HCO3 ABG O2 Saturation ABG Base Excess ABG Potassium ABG Glucose Oxyhemoglobin Sodium 155 H Potassium Chloride 122.8 H Carbon Dioxide 21 L BUN 19 H Creatinine Glucose POC Glucose 120 H Lactic Acid Calcium AST Phosphorus Total Protein Albumin C-Reactive Protein Arterial Blood Glucose Arterial Blood Ionized Calcium Urine WBC (Auto) 01/10/20 01/10/20 01/10/20 11:47 11:57 17:09 WBC RBC Hgb Hct MCHC RDW Plt Count Lymph % (Auto) Lymph # Lymph # (Auto) Seg Neutrophils % Seg Neuts % (Manual) Lymphocytes % (Manual) Seg Neutrophils # Seg Neutrophils # Man Nucleated RBC % Lymphocytes # (Manual) Monocytes # (Manual) PT INR Heparin Anti-Xa Level POC ABG pO2 ABG pH ABG Hemoglobin ABG Oxyhemoglobin ABG pO2 ABG HCO3 ABG O2 Saturation ABG Base Excess ABG Potassium ABG Glucose Oxyhemoglobin Sodium 153 H Potassium Chloride 118.3 H Carbon Dioxide 20 L BUN 19 H Creatinine Glucose 113 H POC Glucose 142 H 125 H Lactic Acid Calcium AST Phosphorus Total Protein Albumin C-Reactive Protein Arterial Blood Glucose Arterial Blood Ionized Calcium Urine WBC (Auto) 01/10/20 01/10/20 01/11/20 20:27 22:00 00:45 WBC RBC Hgb Hct MCHC RDW Plt Count Lymph % (Auto) Lymph # Lymph # (Auto) Seg Neutrophils % Seg Neuts % (Manual) Lymphocytes % (Manual) Seg Neutrophils # Seg Neutrophils # Man Nucleated RBC % Lymphocytes # (Manual) Monocytes # (Manual) PT INR Heparin Anti-Xa Level POC ABG pO2 ABG pH ABG Hemoglobin ABG Oxyhemoglobin ABG pO2 ABG HCO3 ABG O2 Saturation ABG Base Excess ABG Potassium ABG Glucose Oxyhemoglobin Sodium 153 H 154 H Potassium 3.3 L 3.2 L Chloride 117.0 H 118.9 H Carbon Dioxide 20 L BUN Creatinine Glucose POC Glucose 136 H Lactic Acid Calcium 8.3 L 8.0 L AST Phosphorus Total Protein Albumin C-Reactive Protein Arterial Blood Glucose Arterial Blood Ionized Calcium Urine WBC (Auto) 01/11/20 01/11/20 01/11/20 07:06 08:03 11:54 WBC RBC Hgb Hct MCHC RDW Plt Count Lymph % (Auto) Lymph # Lymph # (Auto) Seg Neutrophils % Seg Neuts % (Manual) Lymphocytes % (Manual) Seg Neutrophils # Seg Neutrophils # Man Nucleated RBC % Lymphocytes # (Manual) Monocytes # (Manual) PT INR Heparin Anti-Xa Level POC ABG pO2 ABG pH ABG Hemoglobin ABG Oxyhemoglobin ABG pO2 ABG HCO3 ABG O2 Saturation ABG Base Excess ABG Potassium ABG Glucose Oxyhemoglobin Sodium 151 H Potassium Chloride 118.7 H Carbon Dioxide 21 L BUN Creatinine Glucose 107 H POC Glucose 118 H 164 H Lactic Acid Calcium 8.3 L AST Phosphorus Total Protein Albumin C-Reactive Protein Arterial Blood Glucose Arterial Blood Ionized Calcium Urine WBC (Auto) 01/11/20 01/12/20 01/12/20 16:28 00:19 05:40 WBC RBC Hgb Hct MCHC RDW Plt Count Lymph % (Auto) Lymph # Lymph # (Auto) Seg Neutrophils % Seg Neuts % (Manual) Lymphocytes % (Manual) Seg Neutrophils # Seg Neutrophils # Man Nucleated RBC % Lymphocytes # (Manual) Monocytes # (Manual) PT INR Heparin Anti-Xa Level POC ABG pO2 ABG pH ABG Hemoglobin ABG Oxyhemoglobin ABG pO2 ABG HCO3 ABG O2 Saturation ABG Base Excess ABG Potassium ABG Glucose Oxyhemoglobin Sodium 148 H Potassium Chloride 111.6 H Carbon Dioxide 19 L BUN Creatinine Glucose 128 H POC Glucose 132 H 179 H Lactic Acid Calcium 8.2 L AST Phosphorus Total Protein Albumin C-Reactive Protein Arterial Blood Glucose Arterial Blood Ionized Calcium Urine WBC (Auto) 01/12/20 01/12/20 01/12/20 06:17 11:37 17:21 WBC RBC Hgb Hct MCHC RDW Plt Count Lymph % (Auto) Lymph # Lymph # (Auto) Seg Neutrophils % Seg Neuts % (Manual) Lymphocytes % (Manual) Seg Neutrophils # Seg Neutrophils # Man Nucleated RBC % Lymphocytes # (Manual) Monocytes # (Manual) PT INR Heparin Anti-Xa Level POC ABG pO2 ABG pH ABG Hemoglobin ABG Oxyhemoglobin ABG pO2 ABG HCO3 ABG O2 Saturation ABG Base Excess ABG Potassium ABG Glucose Oxyhemoglobin Sodium Potassium Chloride Carbon Dioxide BUN Creatinine Glucose POC Glucose 140 H 142 H 133 H Lactic Acid Calcium AST Phosphorus Total Protein Albumin C-Reactive Protein Arterial Blood Glucose Arterial Blood Ionized Calcium Urine WBC (Auto) 01/12/20 01/13/20 01/13/20 23:14 05:26 07:00 WBC RBC Hgb Hct MCHC RDW Plt Count Lymph % (Auto) Lymph # Lymph # (Auto) Seg Neutrophils % Seg Neuts % (Manual) Lymphocytes % (Manual) Seg Neutrophils # Seg Neutrophils # Man Nucleated RBC % Lymphocytes # (Manual) Monocytes # (Manual) PT INR Heparin Anti-Xa Level POC ABG pO2 ABG pH ABG Hemoglobin ABG Oxyhemoglobin ABG pO2 ABG HCO3 ABG O2 Saturation ABG Base Excess ABG Potassium ABG Glucose Oxyhemoglobin Sodium Potassium Chloride 110.0 H Carbon Dioxide BUN Creatinine Glucose 139 H POC Glucose 135 H 162 H Lactic Acid Calcium 7.8 L AST Phosphorus Total Protein Albumin C-Reactive Protein Arterial Blood Glucose Arterial Blood Ionized Calcium Urine WBC (Auto) 01/13/20 01/13/20 01/13/20 12:14 17:52 21:40 WBC RBC Hgb Hct MCHC RDW Plt Count Lymph % (Auto) Lymph # Lymph # (Auto) Seg Neutrophils % Seg Neuts % (Manual) Lymphocytes % (Manual) Seg Neutrophils # Seg Neutrophils # Man Nucleated RBC % Lymphocytes # (Manual) Monocytes # (Manual) PT INR Heparin Anti-Xa Level POC ABG pO2 ABG pH ABG Hemoglobin ABG Oxyhemoglobin ABG pO2 ABG HCO3 ABG O2 Saturation ABG Base Excess ABG Potassium ABG Glucose Oxyhemoglobin Sodium Potassium Chloride Carbon Dioxide BUN Creatinine Glucose POC Glucose 205 H 172 H 186 H Lactic Acid Calcium AST Phosphorus Total Protein Albumin C-Reactive Protein Arterial Blood Glucose Arterial Blood Ionized Calcium Urine WBC (Auto) 01/14/20 01/14/20 01/14/20 04:28 11:01 11:01 WBC 14.8 H RBC 3.20 L Hgb 9.5 L Hct 28.0 L MCHC RDW Plt Count Lymph % (Auto) Lymph # Lymph # (Auto) Seg Neutrophils % Seg Neuts % (Manual) Lymphocytes % (Manual) Seg Neutrophils # Seg Neutrophils # Man Nucleated RBC % Lymphocytes # (Manual) Monocytes # (Manual) PT INR Heparin Anti-Xa Level POC ABG pO2 ABG pH ABG Hemoglobin ABG Oxyhemoglobin ABG pO2 ABG HCO3 ABG O2 Saturation ABG Base Excess ABG Potassium ABG Glucose Oxyhemoglobin Sodium Potassium 3.2 L Chloride Carbon Dioxide BUN Creatinine 0.4 L Glucose POC Glucose 115 H Lactic Acid Calcium 8.0 L AST Phosphorus Total Protein Albumin C-Reactive Protein Arterial Blood Glucose Arterial Blood Ionized Calcium Urine WBC (Auto) 01/14/20 01/14/20 01/14/20 11:01 16:33 22:32 WBC RBC Hgb Hct MCHC RDW Plt Count Lymph % (Auto) Lymph # Lymph # (Auto) Seg Neutrophils % Seg Neuts % (Manual) Lymphocytes % (Manual) Seg Neutrophils # Seg Neutrophils # Man Nucleated RBC % Lymphocytes # (Manual) Monocytes # (Manual) PT 15.8 H INR 1.23 H Heparin Anti-Xa Level POC ABG pO2 ABG pH ABG Hemoglobin ABG Oxyhemoglobin ABG pO2 ABG HCO3 ABG O2 Saturation ABG Base Excess ABG Potassium ABG Glucose Oxyhemoglobin Sodium Potassium Chloride Carbon Dioxide BUN Creatinine Glucose POC Glucose 58 L 188 H Lactic Acid Calcium AST Phosphorus Total Protein Albumin C-Reactive Protein Arterial Blood Glucose Arterial Blood Ionized Calcium Urine WBC (Auto) 01/15/20 01/15/20 01/15/20 05:35 06:19 17:17 WBC RBC Hgb Hct MCHC RDW Plt Count Lymph % (Auto) Lymph # Lymph # (Auto) Seg Neutrophils % Seg Neuts % (Manual) Lymphocytes % (Manual) Seg Neutrophils # Seg Neutrophils # Man Nucleated RBC % Lymphocytes # (Manual) Monocytes # (Manual) PT INR Heparin Anti-Xa Level POC ABG pO2 ABG pH ABG Hemoglobin ABG Oxyhemoglobin ABG pO2 ABG HCO3 ABG O2 Saturation ABG Base Excess ABG Potassium ABG Glucose Oxyhemoglobin Sodium Potassium Chloride Carbon Dioxide BUN Creatinine 0.5 L Glucose 104 H POC Glucose 106 H 183 H Lactic Acid Calcium 7.8 L AST Phosphorus Total Protein Albumin C-Reactive Protein Arterial Blood Glucose Arterial Blood Ionized Calcium Urine WBC (Auto) 01/15/20 01/16/20 01/16/20 22:29 05:35 05:59 WBC 14.7 H RBC 3.04 L Hgb 9.0 L Hct 27.0 L MCHC RDW Plt Count Lymph % (Auto) 9.1 L Lymph # Lymph # (Auto) Seg Neutrophils % 87.3 H Seg Neuts % (Manual) Lymphocytes % (Manual) Seg Neutrophils # 12.9 H Seg Neutrophils # Man Nucleated RBC % Lymphocytes # (Manual) Monocytes # (Manual) PT INR Heparin Anti-Xa Level POC ABG pO2 ABG pH ABG Hemoglobin ABG Oxyhemoglobin ABG pO2 ABG HCO3 ABG O2 Saturation ABG Base Excess ABG Potassium ABG Glucose Oxyhemoglobin Sodium Potassium Chloride Carbon Dioxide BUN Creatinine Glucose POC Glucose 228 H 130 H Lactic Acid Calcium AST Phosphorus Total Protein Albumin C-Reactive Protein Arterial Blood Glucose Arterial Blood Ionized Calcium Urine WBC (Auto) 01/16/20 01/16/20 01/16/20 09:52 12:49 17:30 WBC RBC Hgb Hct MCHC RDW Plt Count Lymph % (Auto) Lymph # Lymph # (Auto) Seg Neutrophils % Seg Neuts % (Manual) Lymphocytes % (Manual) Seg Neutrophils # Seg Neutrophils # Man Nucleated RBC % Lymphocytes # (Manual) Monocytes # (Manual) PT INR Heparin Anti-Xa Level POC ABG pO2 ABG pH ABG Hemoglobin ABG Oxyhemoglobin ABG pO2 ABG HCO3 ABG O2 Saturation ABG Base Excess ABG Potassium ABG Glucose Oxyhemoglobin Sodium Potassium Chloride Carbon Dioxide BUN Creatinine Glucose POC Glucose 122 H 142 H 192 H Lactic Acid Calcium AST Phosphorus Total Protein Albumin C-Reactive Protein Arterial Blood Glucose Arterial Blood Ionized Calcium Urine WBC (Auto) 01/16/20 01/17/20 01/17/20 23:01 08:36 08:36 WBC 12.7 H RBC 2.98 L Hgb 8.9 L Hct 26.4 L MCHC RDW Plt Count Lymph % (Auto) 8.8 L Lymph # 1.1 L Lymph # (Auto) Seg Neutrophils % 86.7 H Seg Neuts % (Manual) Lymphocytes % (Manual) Seg Neutrophils # 11.0 H Seg Neutrophils # Man Nucleated RBC % Lymphocytes # (Manual) Monocytes # (Manual) PT INR Heparin Anti-Xa Level POC ABG pO2 ABG pH ABG Hemoglobin ABG Oxyhemoglobin ABG pO2 ABG HCO3 ABG O2 Saturation ABG Base Excess ABG Potassium ABG Glucose Oxyhemoglobin Sodium Potassium 3.3 L D Chloride Carbon Dioxide BUN Creatinine 0.4 L Glucose POC Glucose 141 H Lactic Acid Calcium 8.1 L AST Phosphorus Total Protein 4.6 L Albumin 1.6 L C-Reactive Protein Arterial Blood Glucose Arterial Blood Ionized Calcium Urine WBC (Auto) 01/17/20 01/17/20 01/18/20 11:43 23:56 06:27 WBC RBC Hgb Hct MCHC RDW Plt Count Lymph % (Auto) Lymph # Lymph # (Auto) Seg Neutrophils % Seg Neuts % (Manual) Lymphocytes % (Manual) Seg Neutrophils # Seg Neutrophils # Man Nucleated RBC % Lymphocytes # (Manual) Monocytes # (Manual) PT INR Heparin Anti-Xa Level POC ABG pO2 ABG pH ABG Hemoglobin ABG Oxyhemoglobin ABG pO2 ABG HCO3 ABG O2 Saturation ABG Base Excess ABG Potassium ABG Glucose Oxyhemoglobin Sodium Potassium Chloride Carbon Dioxide BUN Creatinine Glucose POC Glucose 137 H 215 H 122 H Lactic Acid Calcium AST Phosphorus Total Protein Albumin C-Reactive Protein Arterial Blood Glucose Arterial Blood Ionized Calcium Urine WBC (Auto) 01/18/20 01/18/20 01/18/20 07:31 07:31 11:39 WBC 12.1 H RBC 3.23 L Hgb 9.7 L Hct 28.7 L MCHC RDW Plt Count Lymph % (Auto) 9.2 L Lymph # 1.1 L Lymph # (Auto) Seg Neutrophils % 85.0 H Seg Neuts % (Manual) Lymphocytes % (Manual) Seg Neutrophils # 10.3 H Seg Neutrophils # Man Nucleated RBC % Lymphocytes # (Manual) Monocytes # (Manual) PT INR Heparin Anti-Xa Level POC ABG pO2 ABG pH ABG Hemoglobin ABG Oxyhemoglobin ABG pO2 ABG HCO3 ABG O2 Saturation ABG Base Excess ABG Potassium ABG Glucose Oxyhemoglobin Sodium Potassium Chloride Carbon Dioxide BUN Creatinine 0.4 L Glucose 108 H POC Glucose 172 H Lactic Acid Calcium AST Phosphorus Total Protein 5.3 L Albumin 2.1 L C-Reactive Protein Arterial Blood Glucose Arterial Blood Ionized Calcium Urine WBC (Auto) 01/18/20 01/19/20 01/19/20 18:22 00:15 11:30 WBC RBC Hgb Hct MCHC RDW Plt Count Lymph % (Auto) Lymph # Lymph # (Auto) Seg Neutrophils % Seg Neuts % (Manual) Lymphocytes % (Manual) Seg Neutrophils # Seg Neutrophils # Man Nucleated RBC % Lymphocytes # (Manual) Monocytes # (Manual) PT INR Heparin Anti-Xa Level POC ABG pO2 ABG pH ABG Hemoglobin ABG Oxyhemoglobin ABG pO2 ABG HCO3 ABG O2 Saturation ABG Base Excess ABG Potassium ABG Glucose Oxyhemoglobin Sodium Potassium Chloride Carbon Dioxide BUN Creatinine Glucose POC Glucose 119 H 135 H 163 H Lactic Acid Calcium AST Phosphorus Total Protein Albumin C-Reactive Protein Arterial Blood Glucose Arterial Blood Ionized Calcium Urine WBC (Auto) 01/19/20 01/19/20 01/20/20 17:44 22:59 03:44 WBC 11.1 H RBC 2.77 L Hgb 8.4 L Hct 25.0 L MCHC RDW Plt Count Lymph % (Auto) Lymph # Lymph # (Auto) Seg Neutrophils % 74.6 H Seg Neuts % (Manual) Lymphocytes % (Manual) Seg Neutrophils # 8.3 H Seg Neutrophils # Man Nucleated RBC % Lymphocytes # (Manual) Monocytes # (Manual) PT INR Heparin Anti-Xa Level POC ABG pO2 ABG pH ABG Hemoglobin ABG Oxyhemoglobin ABG pO2 ABG HCO3 ABG O2 Saturation ABG Base Excess ABG Potassium ABG Glucose Oxyhemoglobin Sodium Potassium Chloride Carbon Dioxide BUN Creatinine Glucose POC Glucose 161 H 182 H Lactic Acid Calcium AST Phosphorus Total Protein Albumin C-Reactive Protein Arterial Blood Glucose Arterial Blood Ionized Calcium Urine WBC (Auto) 01/20/20 01/21/2020 03:44 00:07 05:51 WBC RBC 2.84 L Hgb 8.6 L Hct 25.5 L MCHC RDW Plt Count 463 H Lymph % (Auto) Lymph # Lymph # (Auto) Seg Neutrophils % 76.9 H Seg Neuts % (Manual) Lymphocytes % (Manual) Seg Neutrophils # 7.8 H Seg Neutrophils # Man Nucleated RBC % Lymphocytes # (Manual) Monocytes # (Manual) PT INR Heparin Anti-Xa Level POC ABG pO2 ABG pH ABG Hemoglobin ABG Oxyhemoglobin ABG pO2 ABG HCO3 ABG O2 Saturation ABG Base Excess ABG Potassium ABG Glucose Oxyhemoglobin Sodium Potassium Chloride Carbon Dioxide BUN Creatinine 0.4 L Glucose POC Glucose 68 L Lactic Acid Calcium 7.9 L AST Phosphorus Total Protein 4.7 L Albumin 1.9 L C-Reactive Protein Arterial Blood Glucose Arterial Blood Ionized Calcium Urine WBC (Auto) 01/21/20 01/21/20 01/21/20 05:51 05:58 11:25 WBC RBC Hgb Hct MCHC RDW Plt Count Lymph % (Auto) Lymph # Lymph # (Auto) Seg Neutrophils % Seg Neuts % (Manual) Lymphocytes % (Manual) Seg Neutrophils # Seg Neutrophils # Man Nucleated RBC % Lymphocytes # (Manual) Monocytes # (Manual) PT INR Heparin Anti-Xa Level POC ABG pO2 ABG pH ABG Hemoglobin ABG Oxyhemoglobin ABG pO2 ABG HCO3 ABG O2 Saturation ABG Base Excess ABG Potassium ABG Glucose Oxyhemoglobin Sodium Potassium Chloride Carbon Dioxide 20 L BUN Creatinine 0.5 L Glucose 130 H POC Glucose 185 H 163 H Lactic Acid Calcium 7.6 L AST Phosphorus Total Protein 5.0 L Albumin 1.9 L C-Reactive Protein Arterial Blood Glucose Arterial Blood Ionized Calcium Urine WBC (Auto) 01/21/20 01/21/20 01/22/20 16:22 21:17 01:28 WBC RBC 2.60 L Hgb 8.0 L Hct 23.3 L MCHC RDW Plt Count Lymph % (Auto) Lymph # Lymph # (Auto) Seg Neutrophils % 74.8 H Seg Neuts % (Manual) Lymphocytes % (Manual) Seg Neutrophils # Seg Neutrophils # Man Nucleated RBC % Lymphocytes # (Manual) Monocytes # (Manual) PT INR Heparin Anti-Xa Level POC ABG pO2 ABG pH ABG Hemoglobin ABG Oxyhemoglobin ABG pO2 ABG HCO3 ABG O2 Saturation ABG Base Excess ABG Potassium ABG Glucose Oxyhemoglobin Sodium Potassium Chloride Carbon Dioxide BUN Creatinine Glucose POC Glucose 177 H 67 L Lactic Acid Calcium AST Phosphorus Total Protein Albumin C-Reactive Protein Arterial Blood Glucose Arterial Blood Ionized Calcium Urine WBC (Auto) 01/22/20 01/22/20 01/22/20 01:28 01:28 12:06 WBC RBC Hgb Hct MCHC RDW Plt Count Lymph % (Auto) Lymph # Lymph # (Auto) Seg Neutrophils % Seg Neuts % (Manual) Lymphocytes % (Manual) Seg Neutrophils # Seg Neutrophils # Man Nucleated RBC % Lymphocytes # (Manual) Monocytes # (Manual) PT INR Heparin Anti-Xa Level POC ABG pO2 ABG pH ABG Hemoglobin ABG Oxyhemoglobin ABG pO2 ABG HCO3 ABG O2 Saturation ABG Base Excess ABG Potassium ABG Glucose Oxyhemoglobin Sodium Potassium Chloride 107.6 H Carbon Dioxide BUN Creatinine 0.4 L Glucose 152 H POC Glucose 203 H 140 H Lactic Acid Calcium 7.5 L AST Phosphorus Total Protein 4.0 L Albumin 2.0 L C-Reactive Protein Arterial Blood Glucose Arterial Blood Ionized Calcium Urine WBC (Auto) 01/22/20 01/22/20 01/23/20 16:24 22:55 06:10 WBC RBC 2.68 L Hgb 8.6 L Hct 24.1 L MCHC 36 H RDW Plt Count Lymph % (Auto) Lymph # Lymph # (Auto) Seg Neutrophils % Seg Neuts % (Manual) 71.0 H Lymphocytes % (Manual) Seg Neutrophils # Seg Neutrophils # Man Nucleated RBC % Lymphocytes # (Manual) Monocytes # (Manual) PT INR Heparin Anti-Xa Level POC ABG pO2 ABG pH ABG Hemoglobin ABG Oxyhemoglobin ABG pO2 ABG HCO3 ABG O2 Saturation ABG Base Excess ABG Potassium ABG Glucose Oxyhemoglobin Sodium Potassium Chloride Carbon Dioxide BUN Creatinine Glucose POC Glucose 205 H 196 H Lactic Acid Calcium AST Phosphorus Total Protein Albumin C-Reactive Protein Arterial Blood Glucose Arterial Blood Ionized Calcium Urine WBC (Auto) 01/23/20 01/23/20 01/23/20 06:10 07:35 11:59 WBC RBC Hgb Hct MCHC RDW Plt Count Lymph % (Auto) Lymph # Lymph # (Auto) Seg Neutrophils % Seg Neuts % (Manual) Lymphocytes % (Manual) Seg Neutrophils # Seg Neutrophils # Man Nucleated RBC % Lymphocytes # (Manual) Monocytes # (Manual) PT INR Heparin Anti-Xa Level POC ABG pO2 ABG pH ABG Hemoglobin ABG Oxyhemoglobin ABG pO2 ABG HCO3 ABG O2 Saturation ABG Base Excess ABG Potassium ABG Glucose Oxyhemoglobin Sodium Potassium Chloride 108.8 H Carbon Dioxide BUN Creatinine 0.4 L Glucose 105 H POC Glucose 111 H 123 H Lactic Acid Calcium 8.0 L AST Phosphorus Total Protein 4.9 L D Albumin 2.0 L C-Reactive Protein Arterial Blood Glucose Arterial Blood Ionized Calcium Urine WBC (Auto) 01/23/20 01/24/20 01/24/20 22:45 11:24 16:41 WBC RBC Hgb Hct MCHC RDW Plt Count Lymph % (Auto) Lymph # Lymph # (Auto) Seg Neutrophils % Seg Neuts % (Manual) Lymphocytes % (Manual) Seg Neutrophils # Seg Neutrophils # Man Nucleated RBC % Lymphocytes # (Manual) Monocytes # (Manual) PT INR Heparin Anti-Xa Level POC ABG pO2 ABG pH ABG Hemoglobin ABG Oxyhemoglobin ABG pO2 ABG HCO3 ABG O2 Saturation ABG Base Excess ABG Potassium ABG Glucose Oxyhemoglobin Sodium Potassium Chloride Carbon Dioxide BUN Creatinine Glucose POC Glucose 180 H 182 H 177 H Lactic Acid Calcium AST Phosphorus Total Protein Albumin C-Reactive Protein Arterial Blood Glucose Arterial Blood Ionized Calcium Urine WBC (Auto) 01/24/20 01/25/20 01/25/20 23:11 07:12 11:35 WBC RBC Hgb Hct MCHC RDW Plt Count Lymph % (Auto) Lymph # Lymph # (Auto) Seg Neutrophils % Seg Neuts % (Manual) Lymphocytes % (Manual) Seg Neutrophils # Seg Neutrophils # Man Nucleated RBC % Lymphocytes # (Manual) Monocytes # (Manual) PT INR Heparin Anti-Xa Level POC ABG pO2 ABG pH ABG Hemoglobin ABG Oxyhemoglobin ABG pO2 ABG HCO3 ABG O2 Saturation ABG Base Excess ABG Potassium ABG Glucose Oxyhemoglobin Sodium Potassium Chloride Carbon Dioxide BUN Creatinine Glucose POC Glucose 142 H 135 H 142 H Lactic Acid Calcium AST Phosphorus Total Protein Albumin C-Reactive Protein Arterial Blood Glucose Arterial Blood Ionized Calcium Urine WBC (Auto) 01/25/20 01/26/20 01/26/20 16:33 00:04 11:35 WBC RBC Hgb Hct MCHC RDW Plt Count Lymph % (Auto) Lymph # Lymph # (Auto) Seg Neutrophils % Seg Neuts % (Manual) Lymphocytes % (Manual) Seg Neutrophils # Seg Neutrophils # Man Nucleated RBC % Lymphocytes # (Manual) Monocytes # (Manual) PT INR Heparin Anti-Xa Level POC ABG pO2 ABG pH ABG Hemoglobin ABG Oxyhemoglobin ABG pO2 ABG HCO3 ABG O2 Saturation ABG Base Excess ABG Potassium ABG Glucose Oxyhemoglobin Sodium Potassium Chloride Carbon Dioxide BUN Creatinine Glucose POC Glucose 247 H 233 H 200 H Lactic Acid Calcium AST Phosphorus Total Protein Albumin C-Reactive Protein Arterial Blood Glucose Arterial Blood Ionized Calcium Urine WBC (Auto) 01/26/20 01/26/20 01/26/20 16:30 16:30 17:19 WBC RBC Hgb 7.4 L Hct 22.0 L MCHC RDW Plt Count Lymph % (Auto) Lymph # Lymph # (Auto) Seg Neutrophils % Seg Neuts % (Manual) Lymphocytes % (Manual) Seg Neutrophils # Seg Neutrophils # Man Nucleated RBC % Lymphocytes # (Manual) Monocytes # (Manual) PT 18.4 H INR 1.50 H Heparin Anti-Xa Level POC ABG pO2 ABG pH ABG Hemoglobin ABG Oxyhemoglobin ABG pO2 ABG HCO3 ABG O2 Saturation ABG Base Excess ABG Potassium ABG Glucose Oxyhemoglobin Sodium Potassium Chloride Carbon Dioxide BUN Creatinine Glucose POC Glucose 67 L Lactic Acid Calcium AST Phosphorus Total Protein Albumin C-Reactive Protein Arterial Blood Glucose Arterial Blood Ionized Calcium Urine WBC (Auto) 01/26/20 01/26/20 01/27/20 20:24 21:32 00:16 WBC RBC Hgb Hct MCHC RDW Plt Count Lymph % (Auto) Lymph # Lymph # (Auto) Seg Neutrophils % Seg Neuts % (Manual) Lymphocytes % (Manual) Seg Neutrophils # Seg Neutrophils # Man Nucleated RBC % Lymphocytes # (Manual) Monocytes # (Manual) PT INR Heparin Anti-Xa Level POC ABG pO2 51.8 L ABG pH ABG Hemoglobin 8.5 L ABG Oxyhemoglobin 84.7 L ABG pO2 ABG HCO3 ABG O2 Saturation ABG Base Excess ABG Potassium ABG Glucose Oxyhemoglobin Sodium Potassium Chloride Carbon Dioxide BUN Creatinine Glucose POC Glucose 162 H 141 H Lactic Acid Calcium AST Phosphorus Total Protein Albumin C-Reactive Protein Arterial Blood Glucose Arterial Blood Ionized Calcium Urine WBC (Auto) 01/27/20 01/27/20 01/27/20 01:42 02:18 05:57 WBC RBC Hgb Hct MCHC RDW Plt Count Lymph % (Auto) Lymph # Lymph # (Auto) Seg Neutrophils % Seg Neuts % (Manual) Lymphocytes % (Manual) Seg Neutrophils # Seg Neutrophils # Man Nucleated RBC % Lymphocytes # (Manual) Monocytes # (Manual) PT INR Heparin Anti-Xa Level 2.00 H POC ABG pO2 ABG pH ABG Hemoglobin ABG Oxyhemoglobin ABG pO2 ABG HCO3 ABG O2 Saturation ABG Base Excess ABG Potassium ABG Glucose Oxyhemoglobin Sodium Potassium Chloride Carbon Dioxide BUN Creatinine Glucose POC Glucose 183 H 124 H Lactic Acid Calcium AST Phosphorus Total Protein Albumin C-Reactive Protein Arterial Blood Glucose Arterial Blood Ionized Calcium Urine WBC (Auto) 01/27/20 01/27/20 01/27/20 06:30 06:30 12:23 WBC RBC 2.75 L Hgb 8.4 L Hct 24.9 L MCHC RDW 16.0 H Plt Count 474 H Lymph % (Auto) 12.7 L Lymph # Lymph # (Auto) Seg Neutrophils % 83.2 H Seg Neuts % (Manual) Lymphocytes % (Manual) Seg Neutrophils # 8.4 H Seg Neutrophils # Man Nucleated RBC % Lymphocytes # (Manual) Monocytes # (Manual) PT INR Heparin Anti-Xa Level POC ABG pO2 ABG pH ABG Hemoglobin ABG Oxyhemoglobin ABG pO2 ABG HCO3 ABG O2 Saturation ABG Base Excess ABG Potassium ABG Glucose Oxyhemoglobin Sodium Potassium 3.5 L Chloride 110.2 H Carbon Dioxide BUN Creatinine 0.4 L Glucose 101 H POC Glucose 126 H Lactic Acid Calcium 7.8 L AST Phosphorus Total Protein Albumin C-Reactive Protein Arterial Blood Glucose Arterial Blood Ionized Calcium Urine WBC (Auto) 01/27/20 01/27/20 01/28/20 17:31 23:40 00:00 WBC RBC Hgb Hct MCHC RDW Plt Count Lymph % (Auto) Lymph # Lymph # (Auto) Seg Neutrophils % Seg Neuts % (Manual) Lymphocytes % (Manual) Seg Neutrophils # Seg Neutrophils # Man Nucleated RBC % Lymphocytes # (Manual) Monocytes # (Manual) PT INR Heparin Anti-Xa Level 2.00 H POC ABG pO2 ABG pH ABG Hemoglobin ABG Oxyhemoglobin ABG pO2 ABG HCO3 ABG O2 Saturation ABG Base Excess ABG Potassium ABG Glucose Oxyhemoglobin Sodium Potassium Chloride Carbon Dioxide BUN Creatinine Glucose POC Glucose 133 H 136 H Lactic Acid Calcium AST Phosphorus Total Protein Albumin C-Reactive Protein Arterial Blood Glucose Arterial Blood Ionized Calcium Urine WBC (Auto) 01/28/20 01/28/20 01/28/20 04:26 04:26 05:35 WBC RBC Hgb 9.6 L Hct 28.5 L MCHC RDW Plt Count 508 H Lymph % (Auto) Lymph # Lymph # (Auto) Seg Neutrophils % Seg Neuts % (Manual) Lymphocytes % (Manual) Seg Neutrophils # Seg Neutrophils # Man Nucleated RBC % Lymphocytes # (Manual) Monocytes # (Manual) PT INR Heparin Anti-Xa Level POC ABG pO2 ABG pH ABG Hemoglobin ABG Oxyhemoglobin ABG pO2 ABG HCO3 ABG O2 Saturation ABG Base Excess ABG Potassium ABG Glucose Oxyhemoglobin Sodium Potassium Chloride Carbon Dioxide 19 L BUN 20 H Creatinine 0.5 L Glucose 103 H POC Glucose 135 H Lactic Acid Calcium 7.9 L AST Phosphorus Total Protein Albumin C-Reactive Protein Arterial Blood Glucose Arterial Blood Ionized Calcium Urine WBC (Auto) 01/28/20 01/28/20 01/28/20 08:50 11:10 11:51 WBC RBC Hgb Hct MCHC RDW Plt Count Lymph % (Auto) Lymph # Lymph # (Auto) Seg Neutrophils % Seg Neuts % (Manual) Lymphocytes % (Manual) Seg Neutrophils # Seg Neutrophils # Man Nucleated RBC % Lymphocytes # (Manual) Monocytes # (Manual) PT INR Heparin Anti-Xa Level 0.74 H POC ABG pO2 67.2 L ABG pH ABG Hemoglobin 9.3 L ABG Oxyhemoglobin ABG pO2 ABG HCO3 ABG O2 Saturation ABG Base Excess ABG Potassium ABG Glucose Oxyhemoglobin Sodium Potassium Chloride Carbon Dioxide BUN Creatinine Glucose POC Glucose 160 H Lactic Acid Calcium AST Phosphorus Total Protein Albumin C-Reactive Protein Arterial Blood Glucose Arterial Blood Ionized Calcium Urine WBC (Auto) 01/28/20 01/28/20 01/29/20 17:19 23:53 03:52 WBC RBC Hgb Hct MCHC RDW Plt Count Lymph % (Auto) Lymph # Lymph # (Auto) Seg Neutrophils % Seg Neuts % (Manual) Lymphocytes % (Manual) Seg Neutrophils # Seg Neutrophils # Man Nucleated RBC % Lymphocytes # (Manual) Monocytes # (Manual) PT INR Heparin Anti-Xa Level POC ABG pO2 ABG pH 7.510 H ABG Hemoglobin 7.3 L ABG Oxyhemoglobin ABG pO2 357.0 H ABG HCO3 19.6 L ABG O2 Saturation 99.6 H ABG Base Excess -2.9 L ABG Potassium ABG Glucose Oxyhemoglobin Sodium Potassium Chloride Carbon Dioxide BUN Creatinine Glucose POC Glucose 177 H 142 H Lactic Acid Calcium AST Phosphorus Total Protein Albumin C-Reactive Protein Arterial Blood Glucose Arterial Blood Ionized Calcium Urine WBC (Auto) 01/29/20 01/29/20 01/29/20 04:58 04:58 06:01 WBC 13.1 H RBC 2.75 L Hgb 8.6 L Hct 25.6 L MCHC RDW 17.7 H Plt Count Lymph % (Auto) Lymph # Lymph # (Auto) Seg Neutrophils % Seg Neuts % (Manual) 91.0 H Lymphocytes % (Manual) 6.0 L Seg Neutrophils # Seg Neutrophils # Man 11.9 H Nucleated RBC % 1.0 H Lymphocytes # (Manual) 0.8 L Monocytes # (Manual) PT INR Heparin Anti-Xa Level POC ABG pO2 ABG pH ABG Hemoglobin ABG Oxyhemoglobin ABG pO2 ABG HCO3 ABG O2 Saturation ABG Base Excess ABG Potassium ABG Glucose Oxyhemoglobin Sodium 148 H Potassium 3.5 L D Chloride 113.2 H Carbon Dioxide 21 L BUN 20 H Creatinine Glucose 137 H POC Glucose 167 H Lactic Acid Calcium 8.1 L AST Phosphorus Total Protein Albumin C-Reactive Protein Arterial Blood Glucose Arterial Blood Ionized Calcium Urine WBC (Auto) 01/29/20 01/29/20 01/29/20 11:45 17:52 23:49 WBC RBC Hgb Hct MCHC RDW Plt Count Lymph % (Auto) Lymph # Lymph # (Auto) Seg Neutrophils % Seg Neuts % (Manual) Lymphocytes % (Manual) Seg Neutrophils # Seg Neutrophils # Man Nucleated RBC % Lymphocytes # (Manual) Monocytes # (Manual) PT INR Heparin Anti-Xa Level POC ABG pO2 ABG pH ABG Hemoglobin ABG Oxyhemoglobin ABG pO2 ABG HCO3 ABG O2 Saturation ABG Base Excess ABG Potassium ABG Glucose Oxyhemoglobin Sodium Potassium Chloride Carbon Dioxide BUN Creatinine Glucose POC Glucose 185 H 226 H 141 H Lactic Acid Calcium AST Phosphorus Total Protein Albumin C-Reactive Protein Arterial Blood Glucose Arterial Blood Ionized Calcium Urine WBC (Auto) 01/29/20 01/30/20 01/30/20 Unknown 03:24 04:00 WBC RBC Hgb 7.8 L Hct 23.5 L MCHC RDW Plt Count Lymph % (Auto) Lymph # Lymph # (Auto) Seg Neutrophils % Seg Neuts % (Manual) Lymphocytes % (Manual) Seg Neutrophils # Seg Neutrophils # Man Nucleated RBC % Lymphocytes # (Manual) Monocytes # (Manual) PT INR Heparin Anti-Xa Level POC ABG pO2 ABG pH 7.485 H ABG Hemoglobin 6.7 L ABG Oxyhemoglobin ABG pO2 102.0 H ABG HCO3 ABG O2 Saturation ABG Base Excess ABG Potassium ABG Glucose Oxyhemoglobin Sodium Potassium Chloride Carbon Dioxide BUN Creatinine Glucose POC Glucose Lactic Acid Calcium AST Phosphorus Total Protein Albumin C-Reactive Protein 14.80 H Arterial Blood Glucose Arterial Blood Ionized Calcium Urine WBC (Auto) 01/30/20 01/30/20 01/30/20 05:50 11:15 17:07 WBC RBC Hgb Hct MCHC RDW Plt Count Lymph % (Auto) Lymph # Lymph # (Auto) Seg Neutrophils % Seg Neuts % (Manual) Lymphocytes % (Manual) Seg Neutrophils # Seg Neutrophils # Man Nucleated RBC % Lymphocytes # (Manual) Monocytes # (Manual) PT INR Heparin Anti-Xa Level POC ABG pO2 ABG pH ABG Hemoglobin ABG Oxyhemoglobin ABG pO2 ABG HCO3 ABG O2 Saturation ABG Base Excess ABG Potassium ABG Glucose Oxyhemoglobin Sodium Potassium Chloride Carbon Dioxide BUN Creatinine Glucose POC Glucose 122 H 207 H 124 H Lactic Acid Calcium AST Phosphorus Total Protein Albumin C-Reactive Protein Arterial Blood Glucose Arterial Blood Ionized Calcium Urine WBC (Auto) 01/30/20 01/31/20 01/31/20 17:08 00:10 04:52 WBC RBC Hgb Hct MCHC RDW Plt Count Lymph % (Auto) Lymph # Lymph # (Auto) Seg Neutrophils % Seg Neuts % (Manual) Lymphocytes % (Manual) Seg Neutrophils # Seg Neutrophils # Man Nucleated RBC % Lymphocytes # (Manual) Monocytes # (Manual) PT INR Heparin Anti-Xa Level POC ABG pO2 ABG pH 7.504 H 7.486 H ABG Hemoglobin 7.4 L 6.2 L ABG Oxyhemoglobin ABG pO2 169.2 H 121.7 H ABG HCO3 27.1 H ABG O2 Saturation 99.1 H ABG Base Excess 3.4 H ABG Potassium ABG Glucose Oxyhemoglobin Sodium Potassium Chloride Carbon Dioxide BUN Creatinine Glucose POC Glucose 191 H Lactic Acid Calcium AST Phosphorus Total Protein Albumin C-Reactive Protein Arterial Blood Glucose Arterial Blood Ionized Calcium Urine WBC (Auto) 01/31/20 01/31/20 01/31/20 05:37 11:59 12:40 WBC RBC 2.41 L Hgb 7.5 L Hct 22.3 L MCHC RDW 22.2 H Plt Count Lymph % (Auto) Lymph # Lymph # (Auto) Seg Neutrophils % Seg Neuts % (Manual) 94.0 H Lymphocytes % (Manual) 2.0 L Seg Neutrophils # Seg Neutrophils # Man 9.4 H Nucleated RBC % Lymphocytes # (Manual) 0.2 L Monocytes # (Manual) PT INR Heparin Anti-Xa Level POC ABG pO2 ABG pH ABG Hemoglobin ABG Oxyhemoglobin ABG pO2 ABG HCO3 ABG O2 Saturation ABG Base Excess ABG Potassium ABG Glucose Oxyhemoglobin Sodium Potassium Chloride Carbon Dioxide BUN Creatinine Glucose POC Glucose 175 H 220 H Lactic Acid Calcium AST Phosphorus Total Protein Albumin C-Reactive Protein Arterial Blood Glucose Arterial Blood Ionized Calcium Urine WBC (Auto) 01/31/20 01/31/20 01/31/20 12:40 14:40 18:18 WBC RBC Hgb Hct MCHC RDW Plt Count Lymph % (Auto) Lymph # Lymph # (Auto) Seg Neutrophils % Seg Neuts % (Manual) Lymphocytes % (Manual) Seg Neutrophils # Seg Neutrophils # Man Nucleated RBC % Lymphocytes # (Manual) Monocytes # (Manual) PT INR Heparin Anti-Xa Level POC ABG pO2 124.7 H ABG pH 7.542 H ABG Hemoglobin 7.8 L ABG Oxyhemoglobin ABG pO2 ABG HCO3 ABG O2 Saturation ABG Base Excess ABG Potassium ABG Glucose Oxyhemoglobin Sodium 151 H Potassium 2.1 L* D Chloride 108.9 H Carbon Dioxide BUN 22 H Creatinine Glucose 194 H POC Glucose 181 H Lactic Acid Calcium 8.1 L AST Phosphorus Total Protein 4.8 L Albumin 2.3 L C-Reactive Protein Arterial Blood Glucose Arterial Blood Ionized Calcium Urine WBC (Auto) 02/01/20 02/01/20 02/01/20 00:11 03:14 04:32 WBC 11.9 H RBC 2.47 L Hgb 7.6 L Hct 22.8 L MCHC RDW 22.7 H Plt Count Lymph % (Auto) Lymph # Lymph # (Auto) Seg Neutrophils % Seg Neuts % (Manual) 90.0 H Lymphocytes % (Manual) 5.0 L Seg Neutrophils # Seg Neutrophils # Man 10.7 H Nucleated RBC % Lymphocytes # (Manual) 0.6 L Monocytes # (Manual) PT INR Heparin Anti-Xa Level POC ABG pO2 ABG pH 7.564 H ABG Hemoglobin 7.6 L ABG Oxyhemoglobin ABG pO2 124.1 H ABG HCO3 29.6 H ABG O2 Saturation ABG Base Excess 7.0 H ABG Potassium ABG Glucose Oxyhemoglobin Sodium Potassium Chloride Carbon Dioxide BUN Creatinine Glucose POC Glucose 190 H Lactic Acid Calcium AST Phosphorus Total Protein Albumin C-Reactive Protein Arterial Blood Glucose Arterial Blood Ionized Calcium Urine WBC (Auto) 02/01/20 02/01/20 02/01/20 04:32 05:28 11:56 WBC RBC Hgb Hct MCHC RDW Plt Count Lymph % (Auto) Lymph # Lymph # (Auto) Seg Neutrophils % Seg Neuts % (Manual) Lymphocytes % (Manual) Seg Neutrophils # Seg Neutrophils # Man Nucleated RBC % Lymphocytes # (Manual) Monocytes # (Manual) PT INR Heparin Anti-Xa Level POC ABG pO2 ABG pH ABG Hemoglobin ABG Oxyhemoglobin ABG pO2 ABG HCO3 ABG O2 Saturation ABG Base Excess ABG Potassium ABG Glucose Oxyhemoglobin Sodium 149 H Potassium 2.6 L* D Chloride Carbon Dioxide 33 H BUN 23 H Creatinine 0.5 L Glucose 174 H POC Glucose 187 H 195 H Lactic Acid Calcium 8.0 L AST Phosphorus 1.60 L Total Protein Albumin C-Reactive Protein Arterial Blood Glucose Arterial Blood Ionized Calcium Urine WBC (Auto) 02/01/20 02/01/20 02/02/20 18:15 23:35 04:33 WBC RBC Hgb Hct MCHC RDW Plt Count Lymph % (Auto) Lymph # Lymph # (Auto) Seg Neutrophils % Seg Neuts % (Manual) Lymphocytes % (Manual) Seg Neutrophils # Seg Neutrophils # Man Nucleated RBC % Lymphocytes # (Manual) Monocytes # (Manual) PT INR Heparin Anti-Xa Level POC ABG pO2 ABG pH 7.549 H ABG Hemoglobin 9.8 L ABG Oxyhemoglobin ABG pO2 ABG HCO3 ABG O2 Saturation ABG Base Excess ABG Potassium ABG Glucose Oxyhemoglobin Sodium Potassium Chloride Carbon Dioxide BUN Creatinine Glucose POC Glucose 226 H 252 H Lactic Acid Calcium AST Phosphorus Total Protein Albumin C-Reactive Protein Arterial Blood Glucose Arterial Blood Ionized Calcium Urine WBC (Auto) 02/02/20 02/02/20 02/02/20 05:25 05:25 05:40 WBC 15.5 H RBC 2.43 L Hgb 7.6 L Hct 22.9 L MCHC RDW 23.6 H Plt Count Lymph % (Auto) Lymph # Lymph # (Auto) Seg Neutrophils % Seg Neuts % (Manual) 89.0 H Lymphocytes % (Manual) 3.0 L Seg Neutrophils # Seg Neutrophils # Man 13.8 H Nucleated RBC % Lymphocytes # (Manual) 0.5 L Monocytes # (Manual) 0.9 H PT INR Heparin Anti-Xa Level POC ABG pO2 ABG pH ABG Hemoglobin ABG Oxyhemoglobin ABG pO2 ABG HCO3 ABG O2 Saturation ABG Base Excess ABG Potassium ABG Glucose Oxyhemoglobin Sodium Potassium 2.6 L* Chloride Carbon Dioxide 33 H BUN 26 H Creatinine Glucose 175 H POC Glucose 181 H Lactic Acid Calcium 7.9 L AST Phosphorus Total Protein Albumin C-Reactive Protein Arterial Blood Glucose Arterial Blood Ionized Calcium Urine WBC (Auto) 02/02/20 02/02/20 02/02/20 11:55 14:45 17:18 WBC RBC Hgb Hct MCHC RDW Plt Count Lymph % (Auto) Lymph # Lymph # (Auto) Seg Neutrophils % Seg Neuts % (Manual) Lymphocytes % (Manual) Seg Neutrophils # Seg Neutrophils # Man Nucleated RBC % Lymphocytes # (Manual) Monocytes # (Manual) PT INR Heparin Anti-Xa Level POC ABG pO2 ABG pH 7.56 H ABG Hemoglobin 7.6 L ABG Oxyhemoglobin ABG pO2 ABG HCO3 ABG O2 Saturation ABG Base Excess ABG Potassium ABG Glucose Oxyhemoglobin Sodium Potassium Chloride Carbon Dioxide BUN Creatinine Glucose POC Glucose 226 H 227 H Lactic Acid Calcium AST Phosphorus Total Protein Albumin C-Reactive Protein Arterial Blood Glucose Arterial Blood Ionized Calcium Urine WBC (Auto) 02/02/20 02/03/20 02/03/20 20:54 00:02 05:14 WBC 18.7 H RBC 2.45 L Hgb 7.6 L Hct 23.2 L MCHC RDW 23.5 H Plt Count Lymph % (Auto) Lymph # Lymph # (Auto) Seg Neutrophils % Seg Neuts % (Manual) 94.0 H Lymphocytes % (Manual) 3.0 L Seg Neutrophils # Seg Neutrophils # Man 17.6 H Nucleated RBC % Lymphocytes # (Manual) 0.6 L Monocytes # (Manual) PT INR Heparin Anti-Xa Level POC ABG pO2 ABG pH ABG Hemoglobin ABG Oxyhemoglobin ABG pO2 ABG HCO3 ABG O2 Saturation ABG Base Excess ABG Potassium ABG Glucose Oxyhemoglobin Sodium Potassium 3.2 L D Chloride Carbon Dioxide BUN Creatinine Glucose POC Glucose 204 H Lactic Acid Calcium AST Phosphorus Total Protein Albumin C-Reactive Protein Arterial Blood Glucose Arterial Blood Ionized Calcium Urine WBC (Auto) 02/03/20 02/03/20 02/03/20 05:14 05:14 05:20 WBC RBC Hgb Hct MCHC RDW Plt Count Lymph % (Auto) Lymph # Lymph # (Auto) Seg Neutrophils % Seg Neuts % (Manual) Lymphocytes % (Manual) Seg Neutrophils # Seg Neutrophils # Man Nucleated RBC % Lymphocytes # (Manual) Monocytes # (Manual) PT INR Heparin Anti-Xa Level POC ABG pO2 ABG pH ABG Hemoglobin ABG Oxyhemoglobin ABG pO2 ABG HCO3 ABG O2 Saturation ABG Base Excess ABG Potassium ABG Glucose Oxyhemoglobin Sodium Potassium 3.1 L Chloride Carbon Dioxide 33 H BUN 29 H Creatinine 0.5 L Glucose 160 H POC Glucose 146 H Lactic Acid Calcium 7.9 L AST Phosphorus 2.30 L Total Protein 4.8 L Albumin 2.4 L C-Reactive Protein Arterial Blood Glucose Arterial Blood Ionized Calcium Urine WBC (Auto) 02/03/20 02/03/20 02/03/20 12:35 18:14 23:26 WBC RBC Hgb Hct MCHC RDW Plt Count Lymph % (Auto) Lymph # Lymph # (Auto) Seg Neutrophils % Seg Neuts % (Manual) Lymphocytes % (Manual) Seg Neutrophils # Seg Neutrophils # Man Nucleated RBC % Lymphocytes # (Manual) Monocytes # (Manual) PT INR Heparin Anti-Xa Level POC ABG pO2 ABG pH ABG Hemoglobin ABG Oxyhemoglobin ABG pO2 ABG HCO3 ABG O2 Saturation ABG Base Excess ABG Potassium ABG Glucose Oxyhemoglobin Sodium Potassium Chloride Carbon Dioxide BUN Creatinine Glucose POC Glucose 219 H 248 H 173 H Lactic Acid Calcium AST Phosphorus Total Protein Albumin C-Reactive Protein Arterial Blood Glucose Arterial Blood Ionized Calcium Urine WBC (Auto) 02/04/20 02/04/20 02/04/20 05:34 05:36 06:51 WBC RBC Hgb Hct MCHC RDW Plt Count Lymph % (Auto) Lymph # Lymph # (Auto) Seg Neutrophils % Seg Neuts % (Manual) Lymphocytes % (Manual) Seg Neutrophils # Seg Neutrophils # Man Nucleated RBC % Lymphocytes # (Manual) Monocytes # (Manual) PT INR Heparin Anti-Xa Level POC ABG pO2 ABG pH ABG Hemoglobin ABG Oxyhemoglobin ABG pO2 ABG HCO3 ABG O2 Saturation ABG Base Excess ABG Potassium ABG Glucose Oxyhemoglobin Sodium Potassium Chloride Carbon Dioxide BUN Creatinine Glucose POC Glucose 56 L 64 L 127 H Lactic Acid Calcium AST Phosphorus Total Protein Albumin C-Reactive Protein Arterial Blood Glucose Arterial Blood Ionized Calcium Urine WBC (Auto) 02/04/20 02/04/20 02/04/20 11:57 13:42 13:53 WBC 19.2 H RBC 2.48 L Hgb 7.8 L Hct 23.5 L MCHC RDW 24.2 H Plt Count Lymph % (Auto) Lymph # Lymph # (Auto) Seg Neutrophils % Seg Neuts % (Manual) 97.0 H Lymphocytes % (Manual) 2.0 L Seg Neutrophils # Seg Neutrophils # Man 18.6 H Nucleated RBC % Lymphocytes # (Manual) 0.4 L Monocytes # (Manual) PT INR Heparin Anti-Xa Level POC ABG pO2 118.2 H ABG pH 7.525 H ABG Hemoglobin 8.7 L ABG Oxyhemoglobin ABG pO2 ABG HCO3 ABG O2 Saturation ABG Base Excess ABG Potassium 2.8 L ABG Glucose 185 H Oxyhemoglobin Sodium Potassium Chloride Carbon Dioxide BUN Creatinine Glucose POC Glucose 224 H Lactic Acid Calcium AST Phosphorus Total Protein Albumin C-Reactive Protein Arterial Blood Glucose 185 H Arterial Blood Ionized Calcium 4.5 L Urine WBC (Auto) 02/04/20 02/04/20 02/04/20 13:53 18:15 23:35 WBC RBC Hgb Hct MCHC RDW Plt Count Lymph % (Auto) Lymph # Lymph # (Auto) Seg Neutrophils % Seg Neuts % (Manual) Lymphocytes % (Manual) Seg Neutrophils # Seg Neutrophils # Man Nucleated RBC % Lymphocytes # (Manual) Monocytes # (Manual) PT INR Heparin Anti-Xa Level POC ABG pO2 ABG pH ABG Hemoglobin ABG Oxyhemoglobin ABG pO2 ABG HCO3 ABG O2 Saturation ABG Base Excess ABG Potassium ABG Glucose Oxyhemoglobin Sodium 147 H Potassium 2.8 L* Chloride Carbon Dioxide 38 H BUN 33 H Creatinine 0.5 L Glucose 202 H POC Glucose 215 H 197 H Lactic Acid Calcium AST Phosphorus Total Protein Albumin C-Reactive Protein Arterial Blood Glucose Arterial Blood Ionized Calcium Urine WBC (Auto) 02/05/20 02/05/20 02/05/20 01:03 04:00 04:00 WBC 26.7 H RBC 2.59 L Hgb 8.1 L Hct 24.6 L MCHC RDW 24.1 H Plt Count Lymph % (Auto) 1.6 L Lymph # Lymph # (Auto) 0.4 L Seg Neutrophils % Seg Neuts % (Manual) Lymphocytes % (Manual) Seg Neutrophils # 25.9 H Seg Neutrophils # Man Nucleated RBC % Lymphocytes # (Manual) Monocytes # (Manual) PT INR Heparin Anti-Xa Level POC ABG pO2 ABG pH ABG Hemoglobin 7.1 L ABG Oxyhemoglobin ABG pO2 50.7 L ABG HCO3 29.6 H ABG O2 Saturation 82.7 L ABG Base Excess 4.8 H ABG Potassium ABG Glucose Oxyhemoglobin 81.0 L Sodium 146 H Potassium Chloride Carbon Dioxide 32 H BUN 35 H Creatinine 0.5 L Glucose 226 H POC Glucose Lactic Acid Calcium AST Phosphorus Total Protein 5.1 L Albumin 2.2 L C-Reactive Protein Arterial Blood Glucose Arterial Blood Ionized Calcium Urine WBC (Auto) 02/05/20 05:32 WBC RBC Hgb Hct MCHC RDW Plt Count Lymph % (Auto) Lymph # Lymph # (Auto) Seg Neutrophils % Seg Neuts % (Manual) Lymphocytes % (Manual) Seg Neutrophils # Seg Neutrophils # Man Nucleated RBC % Lymphocytes # (Manual) Monocytes # (Manual) PT INR Heparin Anti-Xa Level POC ABG pO2 ABG pH ABG Hemoglobin ABG Oxyhemoglobin ABG pO2 ABG HCO3 ABG O2 Saturation ABG Base Excess ABG Potassium ABG Glucose Oxyhemoglobin Sodium Potassium Chloride Carbon Dioxide BUN Creatinine Glucose POC Glucose 239 H Lactic Acid Calcium AST Phosphorus Total Protein Albumin C-Reactive Protein Arterial Blood Glucose Arterial Blood Ionized Calcium Urine WBC (Auto) Chest x-ray: image reviewed Allied health notes reviewed: RT
[2020-02-05] MEDS ORDERED: LACTATED RINGERS 250 ML IV ONE (13:00)
--- NOTE | 2020-02-05 14:17 | Ultrasound Report ---
ULTRASOUND CHEST HISTORY: Right pleural effusion TECHNIQUE: Grayscale ultrasound. FINDINGS: A small right pleural effusion is identified with volume measuring 353 cc. No internal complexity is appreciated. No pleural fluid is identified on the left side. IMPRESSION: Small right pleural effusion as described. Signer Name: Beni Mills Jr, MD Signed: 02/05/2020 2:12 PM Workstation Name: [id number]
--- NOTE | 2020-02-05 18:55 | Progress Note ---
Assessment and Plan Assessment and plan: s/p PEA arrest night 02/04/2019 s/p CPR per ACLS protocol Return of spontaneous circulation, check the code sheet Continuing ventilatory support. --Acute hypoxic respiratory failure, status post cardiac arrest Continue mechanical ventilation, nebulizers, wean as tolerated And extubate, pulmonary critical following Oxygen nebulizers steroids and supportive care --Shock/ septic shock On Levophed, wean as tolerated -- status post extubation 02/02/2020 On BiPAP this morning ,Ventimask/nasal cannula oxygen Titrate O2 sats to more than 90%, wean oxygen as tolerated Pulmonary critical following --Persistent severe hypokalemia; potassium level is normal range Closely monitor electrolytes -- s/p PEA cardiac arrest 01/28/2020 CPR per ACLS protocol with ROSC Check code record Intubated on vent, now extubated -- Hydropneumothorax, not POA Patient developed hydropneumothorax on 01/15. Surgery evaluated s/p chest tube placed on 01/15. Improved, s/p chest tube removed 01/22, extubated 02/02/2020 Patient is using nasal cannula oxygen/BiPAP and Ventimask as needed -- large Left pleural effusion 01/25 Continue supportive care, pulmonary following -- Hypernatremia, Resolved -- Sepsis, likely UTI and infected Sacral decubitus ulcer On zosyn now, cont to Monitor vital signs closely -- UTI (urinary tract infection) Completed antibiotics --h/o Bilateral pulmonary embolism Had pulmonary embolism 7 months ago. CTA chest and LE doppler showed no acute PE or DVT eliquis now stopped --Sacral decubitus ulcer, infected/POA s/p wound debridement on 01/15. Wound vac in place ID recommend zosyn 4.5 g IV q8h total 6 weeks stop date 02/27/2020 -- Uncontrolled diabetes mellitus DM management with SSI, TF -- Dementia: Continue donepezil --Severe protein-calorie malnutrition She is not eating well and is getting feeds through the NG tube. Discussed with - this problem has been chronic agreed for PEG PEG placed 01/13. Now on tube feeds --DVT prophylaxis SCDs The high probability of a clinically significant, sudden or life threatening deterioration of the [Respiratory, OCCUPATIONAL NURSE, CVs] system(s) required my full and direct attention, intervention and personal management. The aggregate critical care time was [32] minutes. This time is in addition to time spent performing reported procedures but includes the following: [x] Data Review and interpretation [x] Patient assessment and monitoring of vital signs [x] Documentation [x] Medication orders and management Patient is critically ill, multiple episodes of cardiac arrest Multiple episodes of respiratory arrest requiring mechanical ventilation Very poor prognosis, apprenticeship consultant recommendations noted and appreciated 02/02; patient was extubated on 02/02/2020, currently on Ventimask 02/03; patient feels slightly better saturating well on Ventimask/BiPAP as needed Hypo-kalemia replenish per protocol Full CODE STATUS 02/04; patient had yet another PEA arrest status post CPR per ACLS protocol Intubated on vent, very poor prognosis, full CODE STATUS History Interval history: Patient had a cardiac arrest last night ,CODE BLUE was called CPR per ACLS with return of spontaneous circulation patient was intubated placed on ventilatory support and transported ICU. Full CODE STATUS Today I have seen and evaluated the patient at the bedside in ICU this morning Patient's chart and medications tests and reports reviewed patient is orally intubated on ventilatory support and sedated Not in acute distress, unresponsive Vital signs reviewed Hospitalist Physical - Constitutional Vitals: Temp Pulse Resp BP Pulse Ox 97.9 F 84 18 107/62 100 02/05/20 16:00 02/05/20 18:00 02/05/20 18:00 02/05/20 18:00 02/05/20 18:00 General appearance: Present: mild distress, well-nourished, other (On BiPAP) - EENT Eyes: Present: PERRL, EOM intact - Neck Neck: Present: supple, normal ROM - Respiratory Respiratory effort: normal Respiratory: bilateral: diminished, negative: rales, rhonchi, wheezing - Cardiovascular Rhythm: regular Heart Sounds: Present: S1 & S2 - Extremities Extremities: no ischemia, No edema - Abdominal General gastrointestinal: soft, non-tender, non-distended, normal bowel sounds - Integumentary Integumentary: Present: clear, warm - Psychiatric Psychiatric: appropriate mood/affect, cooperative - Neurologic Neurologic: CNII-XII intact, moves all extremities Results - Labs CBC & Chem 7: 02/05/20 04:00 02/05/20 04:00 Labs: Laboratory Last Values WBC 26.7 K/mm3 (4.5-11.0) H 02/05/20 04:00 RBC 2.59 M/mm3 (3.65-5.03) L 02/05/20 04:00 Hgb 8.1 gm/dl (10.1-14.3) L 02/05/20 04:00 Hct 24.6 % (30.3-42.9) L 02/05/20 04:00 MCV 95 fl (79-97) 02/05/20 04:00 MCH 32 pg (28-32) 02/05/20 04:00 MCHC 33 % (30-34) 02/05/20 04:00 RDW 24.1 % (13.2-15.2) H 02/05/20 04:00 Plt Count 250 K/mm3 (140-440) 02/05/20 04:00 Lymph % (Auto) 1.6 % (13.4-35.0) L 02/05/20 04:00 Eaton % (Auto) 1.2 % (0.0-7.3) 02/05/20 04:00 Eos % (Auto) 0.0 % (0.0-4.3) 02/05/20 04:00 Baso % (Auto) 0.2 % (0.0-1.8) 02/05/20 04:00 Lymph # (Auto) 0.4 K/mm3 (1.2-5.4) L 02/05/20 04:00 Eaton # (Auto) 0.3 K/mm3 (0.0-0.8) 02/05/20 04:00 Eos # (Auto) 0.0 K/mm3 (0.0-0.4) 02/05/20 04:00 Baso # (Auto) 0.1 K/mm3 (0.0-0.1) 02/05/20 04:00 Add Manual Diff Complete 02/04/20 13:53 Total Counted 100 02/04/20 13:53 Seg Neutrophils % Resource Conservation Manager 02/05/20 04:00 Seg Neuts % (Manual) 97.0 % (40.0-70.0) H 02/04/20 13:53 Band Neutrophils % 0 % 02/04/20 13:53 Lymphocytes % (Manual) 2.0 % (13.4-35.0) L 02/04/20 13:53 Reactive Lymphs % (Man) 0 % 02/04/20 13:53 Monocytes % (Manual) 1.0 % (0.0-7.3) 02/04/20 13:53 Eosinophils % (Manual) 0 % (0.0-4.3) 02/04/20 13:53 Basophils % (Manual) 0 % (0.0-1.8) 02/04/20 13:53 Metamyelocytes % 0 % 02/04/20 13:53 Myelocytes % 0 % 02/04/20 13:53 Promyelocytes % 0 % 02/04/20 13:53 Blast Cells % 0 % 02/04/20 13:53 Nucleated RBC % Not Reportable 02/04/20 13:53 Seg Neutrophils # 25.9 K/mm3 (1.8-7.7) H 02/05/20 04:00 Seg Neutrophils # Man 18.6 K/mm3 (1.8-7.7) H 02/04/20 13:53 Band Neutrophils # 0.0 K/mm3 02/04/20 13:53 Lymphocytes # (Manual) 0.4 K/mm3 (1.2-5.4) L 02/04/20 13:53 Abs React Lymphs (Man) 0.0 K/mm3 02/04/20 13:53 Monocytes # (Manual) 0.2 K/mm3 (0.0-0.8) 02/04/20 13:53 Eosinophils # (Manual) 0.0 K/mm3 (0.0-0.4) 02/04/20 13:53 Basophils # (Manual) 0.0 K/mm3 (0.0-0.1) 02/04/20 13:53 Metamyelocytes # 0.0 K/mm3 02/04/20 13:53 Myelocytes # 0.0 K/mm3 02/04/20 13:53 Promyelocytes # 0.0 K/mm3 02/04/20 13:53 Blast Cells # 0.0 K/mm3 02/04/20 13:53 WBC Morphology Not Reportable 02/04/20 13:53 Hypersegmented Neuts Not Reportable 02/04/20 13:53 Hyposegmented Neuts Not Reportable 02/04/20 13:53 Hypogranular Neuts Not Reportable 02/04/20 13:53 Smudge Cells Not Reportable 02/04/20 13:53 Toxic Granulation Not Reportable 02/04/20 13:53 Toxic Vacuolation Not Reportable 02/04/20 13:53 Dohle Bodies Not Reportable 02/04/20 13:53 Pelger-Huet Anomaly Not Reportable 02/04/20 13:53 Lata Rods Not Reportable 02/04/20 13:53 Platelet Estimate Consistent w auto 02/04/20 13:53 Clumped Platelets Not Reportable 02/04/20 13:53 Plt Clumps, EDTA Not Reportable 02/04/20 13:53 Large Platelets Not Reportable 02/04/20 13:53 Giant Platelets Not Reportable 02/04/20 13:53 Platelet Satelliting Not Reportable 02/04/20 13:53 Plt Morphology Comment Not Reportable 02/04/20 13:53 RBC Morphology Not Reportable 02/04/20 13:53 Dimorphic RBCs Not Reportable 02/04/20 13:53 Polychromasia Rare 02/04/20 13:53 Hypochromasia Few 02/04/20 13:53 Poikilocytosis Few 02/04/20 13:53 Anisocytosis 2+ 02/04/20 13:53 Microcytosis Not Reportable 02/04/20 13:53 Macrocytosis Not Reportable 02/04/20 13:53 Spherocytes Not Reportable 02/04/20 13:53 Pappenheimer Bodies Not Reportable 02/04/20 13:53 Sickle Cells Not Reportable 02/04/20 13:53 Target Cells Rare 02/04/20 13:53 Tear Drop Cells Not Reportable 02/04/20 13:53 Ovalocytes Few 02/04/20 13:53 Helmet Cells Not Reportable 02/04/20 13:53 Lombardi-Gerster Bodies Not Reportable 02/04/20 13:53 Austin Rings Not Reportable 02/04/20 13:53 Leonidas Cells Rare 02/04/20 13:53 Bite Cells Not Reportable 02/04/20 13:53 Crenated Cell Not Reportable 02/04/20 13:53 Elliptocytes Not Reportable 02/04/20 13:53 Acanthocytes (Spur) Not Reportable 02/04/20 13:53 Rouleaux Not Reportable 02/04/20 13:53 Hemoglobin C Crystals Not Reportable 02/04/20 13:53 Schistocytes Few 02/04/20 13:53 Malaria parasites Not Reportable 02/04/20 13:53 Gideon Bodies Not Reportable 02/04/20 13:53 Hem Pathologist Commnt No 02/04/20 13:53 APTT 33.9 Sec. (24.2-36.6) 01/26/20 16:30 PT 14.4 Sec. (12.2-14.9) 02/02/20 05:25 INR 1.11 (0.87-1.13) 02/02/20 05:25 Heparin Anti-Xa Level 0.74 U.I./ml (0.3-0.7) H 01/28/20 08:50 ABG pH 7.426 pH Units (7.350-7.450) 02/05/20 01:03 POC ABG pCO2 39.7 mmHg (32.0-48.0) 02/04/20 13:42 ABG pCO2 46.1 mm Hg 02/05/20 01:03 POC ABG pO2 118.2 mmHg (83-108) H 02/04/20 13:42 ABG pO2 50.7 mm Hg (80.0-90.0) L 02/05/20 01:03 POC ABG HCO3 32.1 02/04/20 13:42 ABG HCO3 29.6 mmol/L (20.0-26.0) H 02/05/20 01:03 ABG O2 Saturation 82.7 % (95.0-99.0) L 02/05/20 01:03 ABG O2 Content 8.2 (0.0-44) 02/05/20 01:03 POC ABG Base Excess 8.6 02/04/20 13:42 ABG Base Excess 4.8 mmol/L (-2.0-3.0) H 02/05/20 01:03 ABG Hemoglobin 7.1 gm/dl (12.0-16.0) L 02/05/20 01:03 ABG Oxyhemoglobin 96.7 (94-98) 02/02/20 14:45 ABG Carboxyhemoglobin 1.5 % (0.0-5.0) 02/05/20 01:03 ABG Methemoglobin 0.5 % (0.0-1.5) 02/05/20 01:03 ABG Sodium 138.6 mmol/L (136.0-145.0) 02/04/20 13:42 ABG Potassium 2.8 mmol/L (3.40-4.50) L 02/04/20 13:42 ABG Chloride 106.0 mmol/L (98-107) 02/04/20 13:42 ABG Glucose 185 mg/dL (65-95) H 02/04/20 13:42 Oxyhemoglobin 81.0 % (95.0-99.0) L 02/05/20 01:03 Carboxyhemoglobin 1.0 (0.5-1.5) 02/02/20 14:45 FiO2 100 % 02/05/20 01:03 Sodium 146 mmol/L (137-145) H 02/05/20 04:00 Potassium 3.6 mmol/L (3.6-5.0) D 02/05/20 04:00 Chloride 104.5 mmol/L (98-107) 02/05/20 04:00 Carbon Dioxide 32 mmol/L (22-30) H 02/05/20 04:00 Anion Gap 13 mmol/L 02/05/20 04:00 BUN 35 mg/dL (7-17) H 02/05/20 04:00 Creatinine 0.5 mg/dL (0.6-1.2) L 02/05/20 04:00 Estimated GFR > 60 ml/min 02/05/20 04:00 BUN/Creatinine Ratio 70 % 02/05/20 04:00 Glucose 226 mg/dL (65-100) H 02/05/20 04:00 POC Glucose 175 (70-105) H 02/05/20 17:56 Hemoglobin A1c 5.3 % (4-6) 01/11/20 00:45 Lactic Acid 1.30 mmol/L (0.7-2.0) 01/26/20 23:27 Calcium 8.6 mg/dL (8.4-10.2) 02/05/20 04:00 Phosphorus 2.30 mg/dL (2.5-4.5) L 02/03/20 05:14 Magnesium 2.20 mg/dL (1.7-2.3) 02/05/20 04:00 Total Bilirubin 0.20 mg/dL (0.1-1.2) 02/05/20 04:00 AST 22 units/L (5-40) 02/05/20 04:00 ALT 26 units/L (7-56) 02/05/20 04:00 Alkaline Phosphatase 64 units/L (35-129) 02/05/20 04:00 C-Reactive Protein 14.80 mg/dL (0.00-1.30) H 01/29/20 Unknown Total Protein 5.1 g/dL (6.3-8.2) L 02/05/20 04:00 Albumin 2.2 g/dL (3.9-5) L 02/05/20 04:00 Albumin/Globulin Ratio 0.8 % 02/05/20 04:00 TSH 2.440 mlU/mL (0.270-4.200) 01/10/20 10:10 Procalcitonin 1.86 ng/mL (<0.15) 01/29/20 Unknown Arterial Blood Glucose 185 mg/dL (65-95) H 02/04/20 13:42 Arterial Blood Ionized Calcium 4.5 mg/dL (4.6-5.3) L 02/04/20 13:42 Urine Color Cordelia (Yellow) 01/08/20 Unknown Urine Turbidity Cloudy (Clear) 01/08/20 Unknown Urine pH 5.0 (5.0-7.0) 01/08/20 Unknown Ur Specific Joice 1.018 (1.003-1.030) 01/08/20 Unknown Urine Protein 30 mg/dl mg/dL (Negative) 01/08/20 Unknown Urine Glucose (UA) Neg mg/dL (Negative) 01/08/20 Unknown Urine Ketones Neg mg/dL (Negative) 01/08/20 Unknown Urine Blood Mod (Negative) 01/08/20 Unknown Urine Nitrite Neg (Negative) 01/08/20 Unknown Urine Bilirubin Neg (Negative) 01/08/20 Unknown Urine Urobilinogen < 2.0 mg/dL (<2.0) 01/08/20 Unknown Ur Leukocyte Esterase Sm (Negative) 01/08/20 Unknown Urine WBC (Auto) 11.0 /HPF (0.0-6.0) H 01/08/20 Unknown Urine RBC (Auto) 7.0 /HPF (0.0-6.0) 01/08/20 Unknown U Epithel Cells (Auto) < 1.0 /HPF (0-13.0) 01/08/20 Unknown Urine Bacteria (Auto) 1+ /HPF (Negative) 01/08/20 Unknown Urine Mucus 2+ /HPF 01/08/20 Unknown Urine Yeast (Budding) 1+ /HPF 01/08/20 Unknown Vancomycin Trough 7.9 ug/mL (5.0-20.0) 01/17/20 16:04 Microbiology: Microbiology 02/05/20 01:06 Tracheal Aspirate Sputum Culture - Preliminary Mejía/IV: Voiding Method External Female Catheter IV Catheter Type [Left Upper PICC Line arm] IV Catheter Type [Right Upper Mid-line arm] IV Catheter Type [Right Peripheral IV Forearm] Active Medications - Current Medications Current Medications: Generic Name Dose Route Start Last Admin Trade Name Freq PRN Reason Stop Dose Admin Acetaminophen 650 mg 01/08/20 23:14 01/18/20 06:03 Tylenol PO 650 mg Q4H PRN Administration Pain MILD(1-3)/Fever >100.5/GARCIA Lipase/Protease/Amylase 1 each 01/17/20 08:[address] 10,500 Unit FEEDTUBE PRN PRN For Clogged Feeding Tube Atorvastatin Calcium 10 mg 01/09/20 22:00 02/04/20 21:03 Atorvastatin PO 10 mg QHS BRO Administration Dextrose 0 ml 01/08/20 23:14 02/04/20 06:12 D50w (25gm) Syringe IV 15 ml Q30MIN PRN Administration Hypoglycemia Protocol Donepezil HCl 10 mg 01/09/20 22:00 02/04/20 21:03 Aricept PO 10 mg QHS BRO Administration Famotidine 20 mg 01/27/20 10:00 02/05/20 10:00 Pepcid PO 20 mg BID BRO Administration Fluticasone Propionate 100 mcg 01/25/20 20:00 01/26/20 06:09 Flonase NS 100 mcg QDAY PRN Administration Nasal Congestion Heparin Sodium (Porcine) 5,000 unit 01/28/20 10:00 02/05/20 10:00 Heparin SUB-Q 5,000 unit Q12HR BRO Administration Hydrophilic Ointment 1 applic 01/28/20 10:57 Vaseline Lip Therapy TP Q2HR PRN Dry Lips Piperacillin Sod/Tazobactam Sod 4.5 gm in 100 mls @ 200 mls/hr 01/19/20 14:00 02/05/20 13:04 Zosyn/Ns 4.5gm/100ml IV 02/27/20 22:29 200 mls/hr Q8HR BRO Administration Protocol Norepinephrine 4 mg in 250 mls @ 7.5 mls/hr 02/05/20 01:00 02/05/20 12:53 Levophed Drip 4 Mg/Ns 250 Ml IV 10 mcg/min TITR BRO 37.5 mls/hr Administration Protocol 2 MCG/MIN Insulin Human Regular 0 unit 01/27/20 12:00 02/05/20 18:06 Humulin R SUB-Q 3 unit Q6HR BRO Administration Protocol Magnesium Hydroxide 30 ml 01/08/20 23:14 Milk Of Magnesia PO Q4H PRN Constipation Megestrol Acetate 400 mg 01/12/20 11:00 02/05/20 10:00 Megestrol PO 400 mg QDAY BRO Administration Mirtazapine 15 mg 01/09/20 22:00 02/04/20 21:03 Remeron PO 15 mg QHS BRO Administration Multi-Ingred Cream/Lotion/Oil/Oint 1 applic 01/28/20 10:57 Artificial Tears Ophth Oint OU Q4HR PRN Dry Eye(s) Ondansetron HCl 4 mg 01/08/20 23:14 Zofran IV Q8H PRN Nausea And Vomiting Scopolamine 1 each 02/05/20 10:00 02/05/20 10:00 Transderm-Scop TD 1 each Q3D BRO Administration Simple Syrup 15 ml 01/17/20 08:37 Simple Syrup FEEDTUBE PRN PRN Hypoglycemia Simple Syrup 30 ml 01/17/20 08:37 Simple Syrup FEEDTUBE PRN PRN Hypoglycemia Sodium Bicarbonate 325 mg 01/17/20 08:37 Sodium Bicarbonate FEEDTUBE PRN PRN For Clogged Feeding Tube Sodium Chloride 10 ml 01/09/20 10:00 02/05/20 10:45 Sodium Chloride Flush Syringe 10 Ml IV 10 ml BID BRO Administration Sodium Chloride 10 ml 01/08/20 23:14 Sodium Chloride Flush Syringe 10 Ml IV PRN PRN LINE FLUSH Trazodone HCl 25 mg 01/09/20 22:00 02/04/20 21:04 Desyrel PO 25 mg QHS BRO Administration Nutrition/Malnutrition Assess - Dietary Evaluation Nutrition/Malnutrition Findings: Nutrition Notes Start: 01/09/20 12:13 Freq: Status: Active Protocol: Document 02/03/20 11:26 [email or web address] (Rec: 02/03/20 13:23 [email or web address]) Co-Sign 02/03/20 11:26 NHALL Nutrition Notes Initial or Follow up Reassessment Current Diagnosis Decubitus(Pressure Ulcer), Diabetes,Sepsis Other Pertinent Diagnosis UTI, dementia, PE, Sacral wound Current Diet Vital AF 1.2 at 50ml/hr Labs/Tests K 3.1 BUN 29 BG 160 Pertinent Medications Solucortef KCl 20mEq Height 5 ft 2 in Weight 65 kg Stuart Body Weight (kg) 50.00 BMI 26.2 Weight change and time frame Wt change noted. Pt has edema Subjective/Other Information F/U for TF tolerance. Pt extubated yesterday. No TF running at time of visit. Per RN, TF running at goal rate Burn Absent Trauma Absent Current % PO Negligible Minimum of two criteria Yes Fluid Accumulation Moderate to Severe (severe) Reduced Data Communications Software Consultant Strength Measurably Reduced (severe) #3 Nutrition Diagnosis Malnutrition Diagnosis Progress(for reassessment Continues documentation) #2 Nutrition Diagnosis Inadequate oral intake Diagnosis Progress(for reassessment Continues documentation) #1 Nutrition Diagnosis Increased nutrient needs ( specify in comment below) Diagnosis Progress(for reassessment Continues documentation) Is patient on ventilator? No Is Patient Ambulatory and/or Out of Bed No [facility] 1353.840 Kcal/Kg value to use for calculation 24 Approximate Energy Requirements Using 1560 kcal/Kg Calculation Used for Recommendations Kcal/kg Additional Notes Protein Needs: 81-98g(1.25-1.5 ) Fluid Needs: 1ml/kcal Nutrition Intervention Change Diet Order: Continue Nutrition Support: Vital AF 1.2 at 50ml/hr Flush 200ml q4h per MD Kcal 1,440 Protein (gm) 90 Fluid (mL) 973 Goal #1 Meet at least 80% of kcal and protein needs via TF Goal #2 TF tolerance Goal #3 Wound Healing Anticipated Discharge Needs: Continue TF Follow-Up By: 02/10/20 Additional Comments F/U TF tolerance
[2020-02-05] MEDS: traZODone 50 MG TAB PO SCH (21:12)
[2020-02-05] MEDS: DONEPEZIL 10 MG TAB PO SCH (21:12)
[2020-02-05] MEDS: MIRTAZAPINE 15 MG TAB PO SCH (21:13)
[2020-02-06] MEDS: INSULIN REGULAR, HUMAN 100 UNIT/ML 3ML VIAL SUB-Q SCH ×3 (01:24→12:47)
[2020-02-06] MEDS: NORepinephrine/NS 4 MG-250 ML 4 MG/250 ML BAG IV SCH (01:25)
[2020-02-06] MEDS: PIPERACIL/TAZOBACTA 4.5/NS 100 4.5 GM/100 ML VIAL IV SCH ×3 (05:43→21:54)
[2020-02-06 06:43] LABS: Hematocrit TNR % (30.3-42.9); Hemoglobin TNR gm/dl (10.1-14.3); Mean Corpuscular HGB Conc TNR % (30-34); Mean Corpuscular Volume TNR fl (79-97); Platelet Count TNR K/mm3 (140-440); Red Blood Count TNR M/mm3 (3.65-5.03); Red Cell Distribution Width TNR % (13.2-15.2)
[2020-02-06 06:44] LABS: Mean Platelet Volume TNR fl (6-12)
[2020-02-06 06:46] LABS: Alanine Aminotransferase 18 units/L (7-56); Albumin 1.2 g/dL (3.9-5); Blood Urea Nitrogen 33 mg/dL (7-17); Calcium 7.9 mg/dL (8.4-10.2); Hemolysis Index 21
[2020-02-06 06:47] LABS: BUN/Creatinine Ratio 66
[2020-02-06 06:49] LABS: Basophils # (Auto) TNR K/mm3 (0.0-0.1); Basophils % (Auto) TNR % (0.0-1.8); Eosinophils # (Auto) TNR K/mm3 (0.0-0.4); Eosinophils % (Auto) TNR % (0.0-4.3); Lymphocytes # (Auto) TNR K/mm3 (1.2-5.4); Lymphocytes % (Auto) TNR % (13.4-35.0); Monocytes # (Auto) TNR K/mm3 (0.0-0.8); Monocytes % (Auto) TNR % (0.0-7.3)
--- NOTE | 2020-02-06 08:32 | Progress Note ---
Assessment and Plan Assessment and plan: --Hypokalemia; potassium 3.0 Replenished with KCl 40 every 3 hours x2 via [place] Normal magnesium levels, closely monitor electrolytes -- Hypernatremia; We will treat with free water flushes via G-tube And monitor electrolytes -- Uncontrolled diabetes mellitus Blood sugars are very high , patient did not receive Lantus last night Lantus was already ordered this morning , monitor blood sugars and adjust Accu-Chek sliding scale coverage long-acting insulin DM management with SSI, TF --s/p PEA arrest night 02/04/2019 s/p CPR per ACLS protocol Return of spontaneous circulation, check the code sheet Continuing ventilatory support. -- s/p PEA cardiac arrest 01/28/2020 CPR per ACLS protocol with ROSC, Check code record Intubated on vent, now extubated 02/02/2020 --Acute hypoxic respiratory failure, status post cardiac arrest Continue mechanical ventilation, nebulizers, wean as tolerated And extubate, pulmonary critical following Oxygen nebulizers steroids and supportive care --Shock/ septic shock We will continue Levophed, wean as tolerated -- status post extubation 02/02/2020 On BiPAP this morning ,Ventimask/nasal cannula oxygen Titrate O2 sats to more than 90%, wean oxygen as tolerated Pulmonary critical following -- Hydropneumothorax, not POA Patient developed hydropneumothorax on 01/15. Surgery evaluated s/p chest tube placed on 01/15. Improved, s/p chest tube removed 01/22, extubated 02/02/2020 Patient is using nasal cannula oxygen/BiPAP and Ventimask as needed -- large Left pleural effusion 01/25 Continue supportive care, pulmonary following --Unstageable sacral decubitus ulcer, infected/POA s/p wound debridement on 01/15. Wound vac in place ID recommend zosyn 4.5 g IV q8h total 6 weeks stop date 02/27/2020 -- Sepsis, due to infected Sacral decubitus ulcer On zosyn now, cont to Monitor vital signs closely -- UTI (urinary tract infection) Completed antibiotics --h/o Bilateral pulmonary embolism Had pulmonary embolism 7 months ago. CTA chest and LE doppler showed no acute PE or DVT eliquis now stopped -- Dementia: Continue donepezil --Severe protein-calorie malnutrition She is not eating well and is getting feeds through the NG tube. Discussed with - this problem has been chronic agreed for PEG PEG placed 01/13. 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 The aggregate critical care time was [35] minutes. This time is in addition to time spent performing reported procedures but includes the following: [x] Data Review and interpretation [x] Patient assessment and monitoring of vital signs [x] Documentation [x] Medication orders and management Patient is critically ill, multiple episodes of cardiac arrest Multiple episodes of respiratory arrest requiring mechanical ventilation Very poor prognosis, surgery consultant recommendations noted and appreciated 02/02; patient was extubated on 02/02/2020, currently on Ventimask 02/03; patient feels slightly better saturating well on Ventimask/BiPAP as needed Hypo-kalemia replenish per protocol Full CODE STATUS 10/1; patient had yet another PEA arrest status post CPR per ACLS protocol Intubated on vent, very poor prognosis, full CODE STATUS 10/2; patient remains intubated on vent, septic shock on Levophed, hypokalemia, poor prognosis History Interval history: I have seen and examined the patient this morning at the bedside Patient's chart and medications reviewed Patient remains intubated on ventilatory support Hypotensive on Levophed Vital signs noted Hospitalist Physical - Constitutional Vitals: Temp Pulse Resp BP Pulse Ox 98.6 F 69 19 116/67 100 02/06/20 03:24 02/06/20 08:05 02/06/20 06:30 02/06/20 08:05 02/06/20 08:05 General appearance: Present: mild distress, well-nourished, other (Intubated on vent) - EENT Eyes: Present: PERRL, EOM intact - Neck Neck: Present: supple, normal ROM - Respiratory Respiratory effort: normal Respiratory: bilateral: diminished, rhonchi, negative: rales, wheezing - Cardiovascular Rhythm: regular Heart Sounds: Present: S1 & S2 - Extremities Extremities: no ischemia, abnormal (Contracted) - Abdominal General gastrointestinal: soft, non-tender, non-distended, normal bowel sounds - Integumentary Integumentary: Present: clear, warm - Psychiatric Psychiatric: other (Intubated on vent) - Neurologic Neurologic: other (Intubated on vent) Results - Labs CBC & Chem 7: 02/06/20 08:45 02/06/20 05:11 Labs: Laboratory Last Values WBC TNR 02/06/20 05:11 RBC TNR 02/06/20 05:11 Hgb TNR 02/06/20 05:11 Hct TNR 02/06/20 05:11 MCV TNR 02/06/20 05:11 MCH TNR 02/06/20 05:11 MCHC TNR 02/06/20 05:11 RDW TNR 02/06/20 05:11 Plt Count TNR 02/06/20 05:11 Lymph % (Auto) TNR 02/06/20 05:11 Angelina % (Auto) TNR 02/06/20 05:11 Eos % (Auto) TNR 02/06/20 05:11 Baso % (Auto) TNR 02/06/20 05:11 Lymph # (Auto) TNR 02/06/20 05:11 Angelina # (Auto) TNR 02/06/20 05:11 Eos # (Auto) TNR 02/06/20 05:11 Baso # (Auto) TNR 02/06/20 05:11 Add Manual Diff Complete 02/04/20 13:53 Total Counted 100 02/04/20 13:53 Seg Neutrophils % TNR 02/06/20 05:11 Seg Neuts % (Manual) 97.0 % (40.0-70.0) H 02/04/20 13:53 Band Neutrophils % 0 % 02/04/20 13:53 Lymphocytes % (Manual) 2.0 % (13.4-35.0) L 02/04/20 13:53 Reactive Lymphs % (Man) 0 % 02/04/20 13:53 Monocytes % (Manual) 1.0 % (0.0-7.3) 02/04/20 13:53 Eosinophils % (Manual) 0 % (0.0-4.3) 02/04/20 13:53 Basophils % (Manual) 0 % (0.0-1.8) 02/04/20 13:53 Metamyelocytes % 0 % 02/04/20 13:53 Myelocytes % 0 % 02/04/20 13:53 Promyelocytes % 0 % 02/04/20 13:53 Blast Cells % 0 % 02/04/20 13:53 Nucleated RBC % Not Reportable 02/04/20 13:53 Seg Neutrophils # TNR 02/06/20 05:11 Seg Neutrophils # Man 18.6 K/mm3 (1.8-7.7) H 02/04/20 13:53 Band Neutrophils # 0.0 K/mm3 02/04/20 13:53 Lymphocytes # (Manual) 0.4 K/mm3 (1.2-5.4) L 02/04/20 13:53 Abs React Lymphs (Man) 0.0 K/mm3 02/04/20 13:53 Monocytes # (Manual) 0.2 K/mm3 (0.0-0.8) 02/04/20 13:53 Eosinophils # (Manual) 0.0 K/mm3 (0.0-0.4) 02/04/20 13:53 Basophils # (Manual) 0.0 K/mm3 (0.0-0.1) 02/04/20 13:53 Metamyelocytes # 0.0 K/mm3 02/04/20 13:53 Myelocytes # 0.0 K/mm3 02/04/20 13:53 Promyelocytes # 0.0 K/mm3 02/04/20 13:53 Blast Cells # 0.0 K/mm3 02/04/20 13:53 WBC Morphology Not Reportable 02/04/20 13:53 Hypersegmented Neuts Not Reportable 02/04/20 13:53 Hyposegmented Neuts Not Reportable 02/04/20 13:53 Hypogranular Neuts Not Reportable 02/04/20 13:53 Smudge Cells Not Reportable 02/04/20 13:53 Toxic Granulation Not Reportable 02/04/20 13:53 Toxic Vacuolation Not Reportable 02/04/20 13:53 Dohle Bodies Not Reportable 02/04/20 13:53 Pelger-Huet Anomaly Not Reportable 02/04/20 13:53 Lata Rods Not Reportable 02/04/20 13:53 Platelet Estimate Consistent w auto 02/04/20 13:53 Clumped Platelets Not Reportable 02/04/20 13:53 Plt Clumps, EDTA Not Reportable 02/04/20 13:53 Large Platelets Not Reportable 02/04/20 13:53 Giant Platelets Not Reportable 02/04/20 13:53 Platelet Satelliting Not Reportable 02/04/20 13:53 Plt Morphology Comment Not Reportable 02/04/20 13:53 RBC Morphology Not Reportable 02/04/20 13:53 Dimorphic RBCs Not Reportable 02/04/20 13:53 Polychromasia Rare 02/04/20 13:53 Hypochromasia Few 02/04/20 13:53 Poikilocytosis Few 02/04/20 13:53 Anisocytosis 2+ 02/04/20 13:53 Microcytosis Not Reportable 02/04/20 13:53 Macrocytosis Not Reportable 02/04/20 13:53 Spherocytes Not Reportable 02/04/20 13:53 Pappenheimer Bodies Not Reportable 02/04/20 13:53 Sickle Cells Not Reportable 02/04/20 13:53 Target Cells Rare 02/04/20 13:53 Tear Drop Cells Not Reportable 02/04/20 13:53 Ovalocytes Few 02/04/20 13:53 Helmet Cells Not Reportable 02/04/20 13:53 Lombardi-Glenvil Bodies Not Reportable 02/04/20 13:53 [place] Rings Not Reportable 02/04/20 13:53 [place] Cells Rare 02/04/20 13:53 Bite Cells Not Reportable 02/04/20 13:53 Crenated Cell Not Reportable 02/04/20 13:53 Elliptocytes Not Reportable 02/04/20 13:53 Acanthocytes (Spur) Not Reportable 02/04/20 13:53 Rouleaux Not Reportable 02/04/20 13:53 Hemoglobin C Crystals Not Reportable 02/04/20 13:53 Schistocytes Few 02/04/20 13:53 Malaria parasites Not Reportable 02/04/20 13:53 Gideon Bodies Not Reportable 02/04/20 13:53 Hem Pathologist Commnt No 02/04/20 13:53 APTT 33.9 Sec. (24.2-36.6) 01/26/20 16:30 PT 14.4 Sec. (12.2-14.9) 02/02/20 05:25 INR 1.11 (0.87-1.13) 02/02/20 05:25 Heparin Anti-Xa Level 0.74 U.I./ml (0.3-0.7) H 01/28/20 08:50 ABG pH 7.551 (7.320-7.450) H 02/06/20 04:27 POC ABG pCO2 38.9 mmHg (32.0-48.0) 02/06/20 04:27 ABG pCO2 46.1 mm Hg 02/05/20 01:03 POC ABG pO2 157.2 mmHg (83-108) H 02/06/20 04:27 ABG pO2 50.7 mm Hg (80.0-90.0) L 02/05/20 01:03 POC ABG HCO3 33.3 02/06/20 04:27 ABG HCO3 29.6 mmol/L (20.0-26.0) H 02/05/20 01:03 ABG O2 Saturation 82.7 % (95.0-99.0) L 02/05/20 01:03 ABG O2 Content 8.2 (0.0-44) 02/05/20 01:03 POC ABG Base Excess 10.1 02/06/20 04:27 ABG Base Excess 4.8 mmol/L (-2.0-3.0) H 02/05/20 01:03 ABG Hemoglobin 7.3 (12.0-17.5) L 02/06/20 04:27 ABG Oxyhemoglobin 98.3 (94-98) H 02/06/20 04:27 ABG Carboxyhemoglobin 1.5 % (0.0-5.0) 02/05/20 01:03 ABG Methemoglobin 0.3 (0.0-1.5) 02/06/20 04:27 ABG Sodium 138.6 mmol/L (136.0-145.0) 02/04/20 13:42 ABG Potassium 2.8 mmol/L (3.40-4.50) L 02/04/20 13:42 ABG Chloride 106.0 mmol/L (98-107) 02/04/20 13:42 ABG Glucose 185 mg/dL (65-95) H 02/04/20 13:42 Oxyhemoglobin 81.0 % (95.0-99.0) L 02/05/20 01:03 Carboxyhemoglobin 0.9 (0.5-1.5) 02/06/20 04:27 FiO2 60.0 02/06/20 04:27 Sodium 148 mmol/L (137-145) H 02/06/20 05:11 Potassium 3.0 mmol/L (3.6-5.0) L 02/06/20 05:11 Chloride 107.3 mmol/L (98-107) H 02/06/20 05:11 Carbon Dioxide 33 mmol/L (22-30) H 02/06/20 05:11 Anion Gap 11 mmol/L 02/06/20 05:11 BUN 33 mg/dL (7-17) H 02/06/20 05:11 Creatinine 0.5 mg/dL (0.6-1.2) L 02/06/20 05:11 Estimated GFR > 60 ml/min 02/06/20 05:11 BUN/Creatinine Ratio 66 % 02/06/20 05:11 Glucose 283 mg/dL (65-100) H 02/06/20 05:11 POC Glucose 347 (70-105) H 02/06/20 05:40 Hemoglobin A1c 5.3 % (4-6) 01/11/20 00:45 Lactic Acid 1.30 mmol/L (0.7-2.0) 01/26/20 23:27 Calcium 7.9 mg/dL (8.4-10.2) L 02/06/20 05:11 Phosphorus 2.30 mg/dL (2.5-4.5) L 02/03/20 05:14 Magnesium 2.20 mg/dL (1.7-2.3) 02/06/20 05:11 Total Bilirubin 0.20 mg/dL (0.1-1.2) 02/06/20 05:11 AST 16 units/L (5-40) 02/06/20 05:11 ALT 18 units/L (7-56) 02/06/20 05:11 Alkaline Phosphatase 51 units/L (35-129) 02/06/20 05:11 C-Reactive Protein 14.80 mg/dL (0.00-1.30) H 01/29/20 Unknown Total Protein 3.6 g/dL (6.3-8.2) L D 02/06/20 05:11 Albumin 1.2 g/dL (3.9-5) L 02/06/20 05:11 Albumin/Globulin Ratio 0.5 % 02/06/20 05:11 TSH 2.440 mlU/mL (0.270-4.200) 01/10/20 10:10 Procalcitonin 1.86 ng/mL (<0.15) 01/29/20 Unknown Arterial Blood Glucose 185 mg/dL (65-95) H 02/04/20 13:42 Arterial Blood Ionized Calcium 4.5 mg/dL (4.6-5.3) L 02/04/20 13:42 Urine Color Cordelia (Yellow) 01/08/20 Unknown Urine Turbidity Cloudy (Clear) 01/08/20 Unknown Urine pH 5.0 (5.0-7.0) 01/08/20 Unknown Ur Specific [place] 1.018 (1.003-1.030) 01/08/20 Unknown Urine Protein 30 mg/dl mg/dL (Negative) 01/08/20 Unknown Urine Glucose (UA) Neg mg/dL (Negative) 01/08/20 Unknown Urine Ketones Neg mg/dL (Negative) 01/08/20 Unknown Urine Blood Mod (Negative) 01/08/20 Unknown Urine Nitrite Neg (Negative) 01/08/20 Unknown Urine Bilirubin Neg (Negative) 01/08/20 Unknown Urine Urobilinogen < 2.0 mg/dL (<2.0) 01/08/20 Unknown Ur Leukocyte Esterase Sm (Negative) 01/08/20 Unknown Urine WBC (Auto) 11.0 /HPF (0.0-6.0) H 01/08/20 Unknown Urine RBC (Auto) 7.0 /HPF (0.0-6.0) 01/08/20 Unknown U Epithel Cells (Auto) < 1.0 /HPF (0-13.0) 01/08/20 Unknown Urine Bacteria (Auto) 1+ /HPF (Negative) 01/08/20 Unknown Urine Mucus 2+ /HPF 01/08/20 Unknown Urine Yeast (Budding) 1+ /HPF 01/08/20 Unknown Vancomycin Trough 7.9 ug/mL (5.0-20.0) 01/17/20 16:04 Microbiology: Microbiology 02/05/20 01:06 Tracheal Aspirate Sputum Culture - Preliminary Mejía/IV: Voiding Method External Female Catheter IV Catheter Type [Left Upper PICC Line arm] IV Catheter Type [Right Upper Mid-line arm] IV Catheter Type [Right Peripheral IV Forearm] Active Medications - Current Medications Current Medications: Generic Name Dose Route Start Last Admin Trade Name Freq PRN Reason Stop Dose Admin Acetaminophen 650 mg 01/08/20 23:14 01/18/20 06:03 Tylenol PO 650 mg Q4H PRN Administration Pain MILD(1-3)/Fever >100.5/GARCIA Lipase/Protease/Amylase 1 each 01/17/20 08:[address] 10,500 Unit FEEDTUBE PRN PRN For Clogged Feeding Tube Atorvastatin Calcium 10 mg 01/09/20 22:00 02/05/20 21:13 Atorvastatin PO 10 mg QHS BRO Administration Dextrose 0 ml 01/08/20 23:14 02/04/20 06:12 D50w (25gm) Syringe IV 15 ml Q30MIN PRN Administration Hypoglycemia Protocol Donepezil HCl 10 mg 01/09/20 22:00 02/05/20 21:12 Aricept PO 10 mg QHS BRO Administration Famotidine 20 mg 01/27/20 10:00 02/05/20 21:12 Pepcid PO 20 mg BID BRO Administration Fluticasone Propionate 100 mcg 01/25/20 20:00 01/26/20 06:09 Flonase NS 100 mcg QDAY PRN Administration Nasal Congestion Heparin Sodium (Porcine) 5,000 unit 01/28/20 10:00 02/05/20 21:13 Heparin SUB-Q 5,000 unit Q12HR BRO Administration Hydrophilic Ointment 1 applic 01/28/20 10:57 Vaseline Lip Therapy TP Q2HR PRN Dry Lips Piperacillin Sod/Tazobactam Sod 4.5 gm in 100 mls @ 200 mls/hr 01/19/20 14:00 02/06/20 05:43 Zosyn/Ns 4.5gm/100ml IV 02/27/20 22:29 200 mls/hr Q8HR BRO Administration Protocol Norepinephrine 4 mg in 250 mls @ 7.5 mls/hr 02/05/20 01:00 02/06/20 05:46 Levophed Drip 4 Mg/Ns 250 Ml IV 4 mcg/min TITR BRO 15 mls/hr Titration Protocol 2 MCG/MIN Insulin Glargine 5 units 02/06/20 10:00 Lantus SUB-Q DAILY BRO Insulin Human Regular 0 unit 01/27/20 12:00 02/06/20 05:43 Humulin R SUB-Q 8 unit Q6HR BRO Administration Protocol Magnesium Hydroxide 30 ml 01/08/20 23:14 Milk Of Magnesia PO Q4H PRN Constipation Megestrol Acetate 400 mg 01/12/20 11:00 02/05/20 10:00 Megestrol PO 400 mg QDAY BRO Administration Mirtazapine 15 mg 01/09/20 22:00 02/05/20 21:13 Remeron PO 15 mg QHS BRO Administration Multi-Ingred Cream/Lotion/Oil/Oint 1 applic 01/28/20 10:57 Artificial Tears Ophth Oint OU Q4HR PRN Dry Eye(s) Ondansetron HCl 4 mg 01/08/20 23:14 Zofran IV Q8H PRN Nausea And Vomiting Potassium Chloride 40 meq 02/06/20 08:00 Potassium Chloride FEEDTUBE 02/06/20 12:01 Q4H BRO Scopolamine 1 each 02/05/20 10:00 02/05/20 10:00 Transderm-Scop TD 1 each Q3D BRO Administration Simple Syrup 15 ml 01/17/20 08:37 Simple Syrup FEEDTUBE PRN PRN Hypoglycemia Simple Syrup 30 ml 01/17/20 08:37 Simple Syrup FEEDTUBE PRN PRN Hypoglycemia Sodium Bicarbonate 325 mg 01/17/20 08:37 Sodium Bicarbonate FEEDTUBE PRN PRN For Clogged Feeding Tube Sodium Chloride 10 ml 01/09/20 10:00 02/05/20 21:13 Sodium Chloride Flush Syringe 10 Ml IV 10 ml BID BRO Administration Sodium Chloride 10 ml 01/08/20 23:14 Sodium Chloride Flush Syringe 10 Ml IV PRN PRN LINE FLUSH Trazodone HCl 25 mg 01/09/20 22:00 02/05/20 21:12 Desyrel PO 25 mg QHS BRO Administration Nutrition/Malnutrition Assess - Dietary Evaluation Nutrition/Malnutrition Findings: Nutrition Notes Start: 01/09/20 12:13 Freq: Status: Active Protocol: Document 02/03/20 11:26 [email or web address] (Rec: 02/03/20 13:23 [email or web address]) Co-Sign 02/03/20 11:26 NHALL Nutrition Notes Initial or Follow up Reassessment Current Diagnosis Decubitus(Pressure Ulcer), Diabetes,Sepsis Other Pertinent Diagnosis UTI, dementia, PE, Sacral wound Current Diet Vital AF 1.2 at 50ml/hr Labs/Tests K 3.1 BUN 29 BG 160 Pertinent Medications Solucortef KCl 20mEq Height 5 ft 2 in Weight 65 kg [place] Body Weight (kg) 50.00 BMI 26.2 Weight change and time frame Wt change noted. Pt has edema Subjective/Other Information F/U for TF tolerance. Pt extubated yesterday. No TF running at time of visit. 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 No Is Patient Ambulatory and/or Out of Bed No REE-([facility]-confined to bed) 1353.840 Kcal/Kg value to use for calculation 24 Approximate Energy Requirements Using 1560 kcal/Kg Calculation Used for Recommendations Kcal/kg Additional Notes Protein Needs: 81-98g(1.25-1.5 ) Fluid Needs: 1ml/kcal Nutrition Intervention Change Diet Order: Continue Nutrition Support: Vital AF 1.2 at 50ml/hr Flush 200ml q4h per MD Kcal 1,440 Protein (gm) 90 Fluid (mL) 973 Goal #1 Meet at least 80% of kcal and protein needs via TF Goal #2 TF tolerance Goal #3 Wound Healing Anticipated Discharge Needs: Continue TF Follow-Up By: 02/10/20 Additional Comments F/U TF tolerance
[2020-02-06] MEDS: POTASSIUM CHLORIDE 20 MEQ PACKET FEEDTUBE SCH ×2 (08:52→12:52)
[2020-02-06 08:54] LABS: Hematocrit 20.3 % (30.3-42.9); Hemoglobin 6.6 gm/dl (10.1-14.3); Mean Corpuscular HGB Conc 32 % (30-34); Mean Corpuscular Volume 96 fl (79-97); Platelet Count 206 K/mm3 (140-440); Red Blood Count 2.12 M/mm3 (3.65-5.03)
[2020-02-06 08:56] LABS: Red Cell Distribution Width 24.4 % (13.2-15.2)
[2020-02-06] MEDS: MEGESTROL 400 MG/10 ML ORAL LIQD PO SCH (09:52)
[2020-02-06] MEDS: HEPARIN 5,000 UNIT/1 ML VIAL SUB-Q SCH ×2 (09:52→21:55)
[2020-02-06] MEDS: FAMOTIDINE 20 MG TAB PO SCH ×2 (09:52→21:54)
[2020-02-06] MEDS: INSULIN GLARGINE 100 UNITS/ML SUB-Q SCH (09:54)
--- NOTE | 2020-02-06 11:04 | Progress Note ---
Assessment and Plan Severe sepsis with shock. Left lung atelectasis. Left pleural effusion. Acute hypoxemic respiratory failure on MVS s/p Cardiopulamanry arrest with ROSC x2 Severe sepsis with shock Acute possibly on chronic encephalopathy. History of diabetes. Urinary tract infection. History of pulmonary embolism, diagnosed several months ago. Sacral decubitus ulcer. Dementia. Anemia that is normocytic. Had ordered blood transfusion but patient is bloodless medicine, so discontinued the order Hematinics Limit blood draws adn use pediatric tubes for all draws -Wean vasopressor support, for MAP >65, currently on Norepinephrine at 4mcg -IF fluid bolus 250ml Lactate Ringers -VAP bundle addressed -Wean FIO2 for O2 sats >92%, currently on FIO2 of 80% -Aspiration precautions, HOB >40 -Enteric nutritional support- has a PEG - continue bronchodilators with pulmonary hygiene per RT - continue accuchecks with glycemic control per SSI (While critically ill target blood glucose of 140-180 mg/dL; avoid hypoglycemia) - avoid nephrotoxins, renally dose all medications - continue to avoid benzodiazepines, reduce the possibility of delirium - complete antibiotics per per ID - prn analgesia per CPOT score - Maintenance of sleep-wake cycle, avoid delirium -VTE prophylaxis with Heparin - Stress ulcer prophylaxis with famotidine - PT/OT/ROM exercises - continue mobility protocol, frequent turning and off loading to prevent further pressure ulcers -Wound care with wound vac - Monitor hemodynamics closely -Free water flushes for hypernatremia - continue other care per attending / other consultants CONDITION: CRITICAL PROGNOSIS: GUARDED CODE STATUS: FULL CODE The high probability of a clinically significant, sudden or life-threatening deterioration of the [respiratory, cardiovascular & neurologic] system(s) required my full and direct attention, intervention and personal management. The aggregate critical care time was [35] minutes without overlap. Time includes spent on; [x] Data Review and interpretation [x] Patient assessment and monitoring of vital signs [x] Documentation [x] Medication orders and management Subjective Date of service: 02/06/20 Principal diagnosis: Septic Shock; S/P Cardiac Arrest; Ac. hypoxemic resp failure; UTI Interval history: Patient is seen today for: PEA arrest with ROSC, now orally intubated on MVS; Severe sepsis with shock;Acute hypoxemic respiratory failure; Acute possibly on chronic encephalopathy; DM II; UTI; VTE Seen and examined at bedside; 24hour events reviewed; nursing and respiratory care staff consulted; no adverse overnight events reported to me; resting peacefully in bed;s/p Bradycardia with PEA arrest with ROSC s/p oral intubation. No fevers, no vomiting. Orally intubated, awake and alert. Low blood pressure with anemia <7g/dL Objective Vital Signs - 12hr 02/05/20 02/05/20 02/05/20 23:30 23:34 23:52 Temperature 99.2 F Pulse Rate 111 H 106 H Pulse Rate [ From Monitor] Respiratory 16 Rate Blood Pressure 113/64 109/58 O2 Sat by Pulse 100 100 Oximetry 02/06/20 02/06/20 02/06/20 00:00 00:01 00:30 Temperature Pulse Rate 109 H 112 H 109 H Pulse Rate [ 90 From Monitor] Respiratory 17 18 34 H Rate Blood Pressure 111/67 111/67 101/56 O2 Sat by Pulse 100 100 100 Oximetry 02/06/20 02/06/20 02/06/20 01:00 01:30 02:00 Temperature Pulse Rate 109 H 112 H 110 H Pulse Rate [ From Monitor] Respiratory 20 20 20 Rate Blood Pressure 112/64 103/53 102/59 O2 Sat by Pulse 100 100 100 Oximetry 02/06/20 02/06/20 02/06/20 02:30 03:00 03:24 Temperature 98.6 F Pulse Rate 114 H 107 H Pulse Rate [ From Monitor] Respiratory 17 19 Rate Blood Pressure 107/56 107/59 O2 Sat by Pulse 100 100 Oximetry 02/06/20 02/06/20 02/06/20 03:30 04:00 04:11 Temperature Pulse Rate 103 H 104 H 104 H Pulse Rate [ 83 From Monitor] Respiratory 18 19 Rate Blood Pressure 101/57 109/60 109/60 O2 Sat by Pulse 100 100 100 Oximetry 02/06/20 02/06/20 02/06/20 04:30 05:00 05:30 Temperature Pulse Rate 105 H 117 H 110 H Pulse Rate [ From Monitor] Respiratory 20 21 20 Rate Blood Pressure 96/56 121/63 109/56 O2 Sat by Pulse 100 100 Oximetry 02/06/20 02/06/20 02/06/20 06:00 06:30 07:00 Temperature Pulse Rate 109 H 104 H 107 H Pulse Rate [ From Monitor] Respiratory 19 19 18 Rate Blood Pressure 113/62 119/61 114/57 O2 Sat by Pulse 100 100 100 Oximetry 02/06/20 02/06/20 02/06/20 07:30 08:00 08:05 Temperature 97.4 F L Pulse Rate 109 H 105 H 69 Pulse Rate [ 69 From Monitor] Respiratory 18 18 Rate Blood Pressure 129/62 116/67 116/67 O2 Sat by Pulse 100 100 100 Oximetry 02/06/20 02/06/20 02/06/20 08:30 09:00 10:10 Temperature Pulse Rate 78 66 Pulse Rate [ From Monitor] Respiratory 16 27 H Rate Blood Pressure 123/48 127/45 89/49 O2 Sat by Pulse 100 100 100 Oximetry Constitutional: no acute distress, alert, other (elderly chronically ill looking [place] [facility] [place] Eyes: non-icteric ENT: oropharynx moist, other (ETT 7.5 cm at 22 [address]) Neck: supple, no lymphadenopathy Effort: normal Ascultation: Bilateral: clear, diminished breath sounds, rales (bases predominan t), rhonchi (scant) Percussion: Bilateral: not dull Cardiovascular: regular rate and rhythm, other (S1,S2) Gastrointestinal: normoactive bowel sounds, soft, non-tender, other (PEG in place) Integumentary: decubitus ulcer Extremities: no cyanosis, pulses normal, no ischemia or petechiae, edema, other (bilateral upper extremity edema) Neurologic: pupils equal and round, other (awake and alert, not obeying commands) Psychiatric: other (Unable to assess secondary to mental status) CBC and BMP: 02/09/20 Unknown 02/09/20 08:00 ABG, PT/INR, D-dimer: ABG ABG pH 7.551 (7.320-7.450) H 02/06/20 04:27 POC ABG pCO2 38.9 mmHg (32.0-48.0) 02/06/20 04:27 ABG pCO2 46.1 mm Hg 02/05/20 01:03 POC ABG pO2 157.2 mmHg (83-108) H 02/06/20 04:27 ABG pO2 50.7 mm Hg (80.0-90.0) L 02/05/20 01:03 POC ABG HCO3 33.3 02/06/20 04:27 ABG O2 Saturation 82.7 % (95.0-99.0) L 02/05/20 01:03 PT/INR, D-dimer PT 14.4 Sec. (12.2-14.9) 02/02/20 05:25 INR 1.11 (0.87-1.13) 02/02/20 05:25 Abnormal lab findings: Abnormal Labs 01/08/20 01/08/20 01/08/20 16:29 16:29 16:29 WBC 13.5 H RBC Hgb Hct MCHC RDW 15.5 H Plt Count Lymph % (Auto) Lymph # Lymph # (Auto) Seg Neutrophils % Seg Neuts % (Manual) 85.0 H Lymphocytes % (Manual) 11.0 L Seg Neutrophils # Seg Neutrophils # Man 11.5 H Nucleated RBC % Lymphocytes # (Manual) Monocytes # (Manual) PT INR Heparin Anti-Xa Level POC ABG pO2 ABG pH ABG Hemoglobin ABG Oxyhemoglobin ABG pO2 ABG HCO3 ABG O2 Saturation ABG Base Excess ABG Potassium ABG Glucose Oxyhemoglobin Sodium 161 H* Potassium Chloride 125.5 H Carbon Dioxide 20 L BUN 30 H Creatinine Glucose 115 H POC Glucose Lactic Acid 2.20 H* Calcium 7.9 L AST 48 H Phosphorus Total Protein Albumin 2.5 L C-Reactive Protein Arterial Blood Glucose Arterial Blood Ionized Calcium Urine WBC (Auto) 01/08/20 01/08/20 01/08/20 19:02 23:30 Unknown WBC RBC Hgb Hct MCHC RDW Plt Count Lymph % (Auto) Lymph # Lymph # (Auto) Seg Neutrophils % Seg Neuts % (Manual) Lymphocytes % (Manual) Seg Neutrophils # Seg Neutrophils # Man Nucleated RBC % Lymphocytes # (Manual) Monocytes # (Manual) PT INR Heparin Anti-Xa Level POC ABG pO2 ABG pH ABG Hemoglobin ABG Oxyhemoglobin ABG pO2 ABG HCO3 ABG O2 Saturation ABG Base Excess ABG Potassium ABG Glucose Oxyhemoglobin Sodium Potassium Chloride Carbon Dioxide BUN Creatinine Glucose POC Glucose Lactic Acid 2.10 H* 2.50 H* Calcium AST Phosphorus Total Protein Albumin C-Reactive Protein Arterial Blood Glucose Arterial Blood Ionized Calcium Urine WBC (Auto) 11.0 H 01/09/20 01/09/20 01/09/20 00:19 00:54 05:52 WBC 13.5 H RBC 3.02 L Hgb 9.0 L D Hct 27.4 L D MCHC RDW Plt Count Lymph % (Auto) 9.1 L Lymph # Lymph # (Auto) Seg Neutrophils % 87.6 H Seg Neuts % (Manual) Lymphocytes % (Manual) Seg Neutrophils # 11.8 H Seg Neutrophils # Man Nucleated RBC % Lymphocytes # (Manual) Monocytes # (Manual) PT INR Heparin Anti-Xa Level POC ABG pO2 ABG pH ABG Hemoglobin ABG Oxyhemoglobin ABG pO2 ABG HCO3 ABG O2 Saturation ABG Base Excess ABG Potassium ABG Glucose Oxyhemoglobin Sodium Potassium Chloride Carbon Dioxide BUN Creatinine Glucose POC Glucose 118 H 116 H Lactic Acid Calcium AST Phosphorus Total Protein Albumin C-Reactive Protein Arterial Blood Glucose Arterial Blood Ionized Calcium Urine WBC (Auto) 01/09/20 01/09/20 01/09/20 05:52 05:52 13:03 WBC RBC Hgb Hct MCHC RDW Plt Count Lymph % (Auto) Lymph # Lymph # (Auto) Seg Neutrophils % Seg Neuts % (Manual) Lymphocytes % (Manual) Seg Neutrophils # Seg Neutrophils # Man Nucleated RBC % Lymphocytes # (Manual) Monocytes # (Manual) PT 17.1 H INR 1.36 H Heparin Anti-Xa Level POC ABG pO2 ABG pH ABG Hemoglobin ABG Oxyhemoglobin ABG pO2 ABG HCO3 ABG O2 Saturation ABG Base Excess ABG Potassium ABG Glucose Oxyhemoglobin Sodium 162 H* Potassium 3.0 L D Chloride 128.3 H Carbon Dioxide BUN 23 H Creatinine Glucose POC Glucose 55 L Lactic Acid Calcium 7.6 L AST Phosphorus Total Protein Albumin C-Reactive Protein Arterial Blood Glucose Arterial Blood Ionized Calcium Urine WBC (Auto) 01/09/20 01/09/20 01/09/20 21:22 21:50 22:28 WBC RBC Hgb Hct MCHC RDW Plt Count Lymph % (Auto) Lymph # Lymph # (Auto) Seg Neutrophils % Seg Neuts % (Manual) Lymphocytes % (Manual) Seg Neutrophils # Seg Neutrophils # Man Nucleated RBC % Lymphocytes # (Manual) Monocytes # (Manual) PT INR Heparin Anti-Xa Level POC ABG pO2 ABG pH ABG Hemoglobin ABG Oxyhemoglobin ABG pO2 ABG HCO3 ABG O2 Saturation ABG Base Excess ABG Potassium ABG Glucose Oxyhemoglobin Sodium 159 H Potassium 5.1 H D Chloride 128.5 H Carbon Dioxide 16 L BUN 23 H Creatinine Glucose 51 L POC Glucose 52 L 106 H Lactic Acid Calcium 8.2 L AST Phosphorus Total Protein Albumin C-Reactive Protein Arterial Blood Glucose Arterial Blood Ionized Calcium Urine WBC (Auto) 01/10/20 01/10/20 01/10/20 05:23 09:11 10:10 WBC 13.4 H RBC Hgb Hct MCHC RDW Plt Count Lymph % (Auto) 7.2 L Lymph # 1.0 L Lymph # (Auto) Seg Neutrophils % 90.0 H Seg Neuts % (Manual) Lymphocytes % (Manual) Seg Neutrophils # 12.0 H Seg Neutrophils # Man Nucleated RBC % Lymphocytes # (Manual) Monocytes # (Manual) PT INR Heparin Anti-Xa Level POC ABG pO2 ABG pH ABG Hemoglobin ABG Oxyhemoglobin ABG pO2 ABG HCO3 ABG O2 Saturation ABG Base Excess ABG Potassium ABG Glucose Oxyhemoglobin Sodium 155 H Potassium Chloride 122.8 H Carbon Dioxide 21 L BUN 19 H Creatinine Glucose POC Glucose 120 H Lactic Acid Calcium AST Phosphorus Total Protein Albumin C-Reactive Protein Arterial Blood Glucose Arterial Blood Ionized Calcium Urine WBC (Auto) 01/10/20 01/10/20 01/10/20 11:47 11:57 17:09 WBC RBC Hgb Hct MCHC RDW Plt Count Lymph % (Auto) Lymph # Lymph # (Auto) Seg Neutrophils % Seg Neuts % (Manual) Lymphocytes % (Manual) Seg Neutrophils # Seg Neutrophils # Man Nucleated RBC % Lymphocytes # (Manual) Monocytes # (Manual) PT INR Heparin Anti-Xa Level POC ABG pO2 ABG pH ABG Hemoglobin ABG Oxyhemoglobin ABG pO2 ABG HCO3 ABG O2 Saturation ABG Base Excess ABG Potassium ABG Glucose Oxyhemoglobin Sodium 153 H Potassium Chloride 118.3 H Carbon Dioxide 20 L BUN 19 H Creatinine Glucose 113 H POC Glucose 142 H 125 H Lactic Acid Calcium AST Phosphorus Total Protein Albumin C-Reactive Protein Arterial Blood Glucose Arterial Blood Ionized Calcium Urine WBC (Auto) 01/10/20 01/10/20 01/11/20 20:27 22:00 00:45 WBC RBC Hgb Hct MCHC RDW Plt Count Lymph % (Auto) Lymph # Lymph # (Auto) Seg Neutrophils % Seg Neuts % (Manual) Lymphocytes % (Manual) Seg Neutrophils # Seg Neutrophils # Man Nucleated RBC % Lymphocytes # (Manual) Monocytes # (Manual) PT INR Heparin Anti-Xa Level POC ABG pO2 ABG pH ABG Hemoglobin ABG Oxyhemoglobin ABG pO2 ABG HCO3 ABG O2 Saturation ABG Base Excess ABG Potassium ABG Glucose Oxyhemoglobin Sodium 153 H 154 H Potassium 3.3 L 3.2 L Chloride 117.0 H 118.9 H Carbon Dioxide 20 L BUN Creatinine Glucose POC Glucose 136 H Lactic Acid Calcium 8.3 L 8.0 L AST Phosphorus Total Protein Albumin C-Reactive Protein Arterial Blood Glucose Arterial Blood Ionized Calcium Urine WBC (Auto) 01/11/20 01/11/20 01/11/20 07:06 08:03 11:54 WBC RBC Hgb Hct MCHC RDW Plt Count Lymph % (Auto) Lymph # Lymph # (Auto) Seg Neutrophils % Seg Neuts % (Manual) Lymphocytes % (Manual) Seg Neutrophils # Seg Neutrophils # Man Nucleated RBC % Lymphocytes # (Manual) Monocytes # (Manual) PT INR Heparin Anti-Xa Level POC ABG pO2 ABG pH ABG Hemoglobin ABG Oxyhemoglobin ABG pO2 ABG HCO3 ABG O2 Saturation ABG Base Excess ABG Potassium ABG Glucose Oxyhemoglobin Sodium 151 H Potassium Chloride 118.7 H Carbon Dioxide 21 L BUN Creatinine Glucose 107 H POC Glucose 118 H 164 H Lactic Acid Calcium 8.3 L AST Phosphorus Total Protein Albumin C-Reactive Protein Arterial Blood Glucose Arterial Blood Ionized Calcium Urine WBC (Auto) 01/11/20 01/12/20 01/12/20 16:28 00:19 05:40 WBC RBC Hgb Hct MCHC RDW Plt Count Lymph % (Auto) Lymph # Lymph # (Auto) Seg Neutrophils % Seg Neuts % (Manual) Lymphocytes % (Manual) Seg Neutrophils # Seg Neutrophils # Man Nucleated RBC % Lymphocytes # (Manual) Monocytes # (Manual) PT INR Heparin Anti-Xa Level POC ABG pO2 ABG pH ABG Hemoglobin ABG Oxyhemoglobin ABG pO2 ABG HCO3 ABG O2 Saturation ABG Base Excess ABG Potassium ABG Glucose Oxyhemoglobin Sodium 148 H Potassium Chloride 111.6 H Carbon Dioxide 19 L BUN Creatinine Glucose 128 H POC Glucose 132 H 179 H Lactic Acid Calcium 8.2 L AST Phosphorus Total Protein Albumin C-Reactive Protein Arterial Blood Glucose Arterial Blood Ionized Calcium Urine WBC (Auto) 01/12/20 01/12/20 01/12/20 06:17 11:37 17:21 WBC RBC Hgb Hct MCHC RDW Plt Count Lymph % (Auto) Lymph # Lymph # (Auto) Seg Neutrophils % Seg Neuts % (Manual) Lymphocytes % (Manual) Seg Neutrophils # Seg Neutrophils # Man Nucleated RBC % Lymphocytes # (Manual) Monocytes # (Manual) PT INR Heparin Anti-Xa Level POC ABG pO2 ABG pH ABG Hemoglobin ABG Oxyhemoglobin ABG pO2 ABG HCO3 ABG O2 Saturation ABG Base Excess ABG Potassium ABG Glucose Oxyhemoglobin Sodium Potassium Chloride Carbon Dioxide BUN Creatinine Glucose POC Glucose 140 H 142 H 133 H Lactic Acid Calcium AST Phosphorus Total Protein Albumin C-Reactive Protein Arterial Blood Glucose Arterial Blood Ionized Calcium Urine WBC (Auto) 01/12/20 01/13/20 01/13/20 23:14 05:26 07:00 WBC RBC Hgb Hct MCHC RDW Plt Count Lymph % (Auto) Lymph # Lymph # (Auto) Seg Neutrophils % Seg Neuts % (Manual) Lymphocytes % (Manual) Seg Neutrophils # Seg Neutrophils # Man Nucleated RBC % Lymphocytes # (Manual) Monocytes # (Manual) PT INR Heparin Anti-Xa Level POC ABG pO2 ABG pH ABG Hemoglobin ABG Oxyhemoglobin ABG pO2 ABG HCO3 ABG O2 Saturation ABG Base Excess ABG Potassium ABG Glucose Oxyhemoglobin Sodium Potassium Chloride 110.0 H Carbon Dioxide BUN Creatinine Glucose 139 H POC Glucose 135 H 162 H Lactic Acid Calcium 7.8 L AST Phosphorus Total Protein Albumin C-Reactive Protein Arterial Blood Glucose Arterial Blood Ionized Calcium Urine WBC (Auto) 01/13/20 01/13/20 01/13/20 12:14 17:52 21:40 WBC RBC Hgb Hct MCHC RDW Plt Count Lymph % (Auto) Lymph # Lymph # (Auto) Seg Neutrophils % Seg Neuts % (Manual) Lymphocytes % (Manual) Seg Neutrophils # Seg Neutrophils # Man Nucleated RBC % Lymphocytes # (Manual) Monocytes # (Manual) PT INR Heparin Anti-Xa Level POC ABG pO2 ABG pH ABG Hemoglobin ABG Oxyhemoglobin ABG pO2 ABG HCO3 ABG O2 Saturation ABG Base Excess ABG Potassium ABG Glucose Oxyhemoglobin Sodium Potassium Chloride Carbon Dioxide BUN Creatinine Glucose POC Glucose 205 H 172 H 186 H Lactic Acid Calcium AST Phosphorus Total Protein Albumin C-Reactive Protein Arterial Blood Glucose Arterial Blood Ionized Calcium Urine WBC (Auto) 01/14/20 01/14/20 01/14/20 04:28 11:01 11:01 WBC 14.8 H RBC 3.20 L Hgb 9.5 L Hct 28.0 L MCHC RDW Plt Count Lymph % (Auto) Lymph # Lymph # (Auto) Seg Neutrophils % Seg Neuts % (Manual) Lymphocytes % (Manual) Seg Neutrophils # Seg Neutrophils # Man Nucleated RBC % Lymphocytes # (Manual) Monocytes # (Manual) PT INR Heparin Anti-Xa Level POC ABG pO2 ABG pH ABG Hemoglobin ABG Oxyhemoglobin ABG pO2 ABG HCO3 ABG O2 Saturation ABG Base Excess ABG Potassium ABG Glucose Oxyhemoglobin Sodium Potassium 3.2 L Chloride Carbon Dioxide BUN Creatinine 0.4 L Glucose POC Glucose 115 H Lactic Acid Calcium 8.0 L AST Phosphorus Total Protein Albumin C-Reactive Protein Arterial Blood Glucose Arterial Blood Ionized Calcium Urine WBC (Auto) 01/14/20 01/14/20 01/14/20 11:01 16:33 22:32 WBC RBC Hgb Hct MCHC RDW Plt Count Lymph % (Auto) Lymph # Lymph # (Auto) Seg Neutrophils % Seg Neuts % (Manual) Lymphocytes % (Manual) Seg Neutrophils # Seg Neutrophils # Man Nucleated RBC % Lymphocytes # (Manual) Monocytes # (Manual) PT 15.8 H INR 1.23 H Heparin Anti-Xa Level POC ABG pO2 ABG pH ABG Hemoglobin ABG Oxyhemoglobin ABG pO2 ABG HCO3 ABG O2 Saturation ABG Base Excess ABG Potassium ABG Glucose Oxyhemoglobin Sodium Potassium Chloride Carbon Dioxide BUN Creatinine Glucose POC Glucose 58 L 188 H Lactic Acid Calcium AST Phosphorus Total Protein Albumin C-Reactive Protein Arterial Blood Glucose Arterial Blood Ionized Calcium Urine WBC (Auto) 01/15/20 01/15/20 01/15/20 05:35 06:19 17:17 WBC RBC Hgb Hct MCHC RDW Plt Count Lymph % (Auto) Lymph # Lymph # (Auto) Seg Neutrophils % Seg Neuts % (Manual) Lymphocytes % (Manual) Seg Neutrophils # Seg Neutrophils # Man Nucleated RBC % Lymphocytes # (Manual) Monocytes # (Manual) PT INR Heparin Anti-Xa Level POC ABG pO2 ABG pH ABG Hemoglobin ABG Oxyhemoglobin ABG pO2 ABG HCO3 ABG O2 Saturation ABG Base Excess ABG Potassium ABG Glucose Oxyhemoglobin Sodium Potassium Chloride Carbon Dioxide BUN Creatinine 0.5 L Glucose 104 H POC Glucose 106 H 183 H Lactic Acid Calcium 7.8 L AST Phosphorus Total Protein Albumin C-Reactive Protein Arterial Blood Glucose Arterial Blood Ionized Calcium Urine WBC (Auto) 01/15/20 01/16/2001/15/20 22:29 05:35 05:59 WBC 14.7 H RBC 3.04 L Hgb 9.0 L Hct 27.0 L MCHC RDW Plt Count Lymph % (Auto) 9.1 L Lymph # Lymph # (Auto) Seg Neutrophils % 87.3 H Seg Neuts % (Manual) Lymphocytes % (Manual) Seg Neutrophils # 12.9 H Seg Neutrophils # Man Nucleated RBC % Lymphocytes # (Manual) Monocytes # (Manual) PT INR Heparin Anti-Xa Level POC ABG pO2 ABG pH ABG Hemoglobin ABG Oxyhemoglobin ABG pO2 ABG HCO3 ABG O2 Saturation ABG Base Excess ABG Potassium ABG Glucose Oxyhemoglobin Sodium Potassium Chloride Carbon Dioxide BUN Creatinine Glucose POC Glucose 228 H 130 H Lactic Acid Calcium AST Phosphorus Total Protein Albumin C-Reactive Protein Arterial Blood Glucose Arterial Blood Ionized Calcium Urine WBC (Auto) 01/16/20 01/16/20 01/16/20 09:52 12:49 17:30 WBC RBC Hgb Hct MCHC RDW Plt Count Lymph % (Auto) Lymph # Lymph # (Auto) Seg Neutrophils % Seg Neuts % (Manual) Lymphocytes % (Manual) Seg Neutrophils # Seg Neutrophils # Man Nucleated RBC % Lymphocytes # (Manual) Monocytes # (Manual) PT INR Heparin Anti-Xa Level POC ABG pO2 ABG pH ABG Hemoglobin ABG Oxyhemoglobin ABG pO2 ABG HCO3 ABG O2 Saturation ABG Base Excess ABG Potassium ABG Glucose Oxyhemoglobin Sodium Potassium Chloride Carbon Dioxide BUN Creatinine Glucose POC Glucose 122 H 142 H 192 H Lactic Acid Calcium AST Phosphorus Total Protein Albumin C-Reactive Protein Arterial Blood Glucose Arterial Blood Ionized Calcium Urine WBC (Auto) 01/16/20 01/17/20 01/17/20 23:01 08:36 08:36 WBC 12.7 H RBC 2.98 L Hgb 8.9 L Hct 26.4 L MCHC RDW Plt Count Lymph % (Auto) 8.8 L Lymph # 1.1 L Lymph # (Auto) Seg Neutrophils % 86.7 H Seg Neuts % (Manual) Lymphocytes % (Manual) Seg Neutrophils # 11.0 H Seg Neutrophils # Man Nucleated RBC % Lymphocytes # (Manual) Monocytes # (Manual) PT INR Heparin Anti-Xa Level POC ABG pO2 ABG pH ABG Hemoglobin ABG Oxyhemoglobin ABG pO2 ABG HCO3 ABG O2 Saturation ABG Base Excess ABG Potassium ABG Glucose Oxyhemoglobin Sodium Potassium 3.3 L D Chloride Carbon Dioxide BUN Creatinine 0.4 L Glucose POC Glucose 141 H Lactic Acid Calcium 8.1 L AST Phosphorus Total Protein 4.6 L Albumin 1.6 L C-Reactive Protein Arterial Blood Glucose Arterial Blood Ionized Calcium Urine WBC (Auto) 01/17/20 01/17/20 01/18/20 11:43 23:56 06:27 WBC RBC Hgb Hct MCHC RDW Plt Count Lymph % (Auto) Lymph # Lymph # (Auto) Seg Neutrophils % Seg Neuts % (Manual) Lymphocytes % (Manual) Seg Neutrophils # Seg Neutrophils # Man Nucleated RBC % Lymphocytes # (Manual) Monocytes # (Manual) PT INR Heparin Anti-Xa Level POC ABG pO2 ABG pH ABG Hemoglobin ABG Oxyhemoglobin ABG pO2 ABG HCO3 ABG O2 Saturation ABG Base Excess ABG Potassium ABG Glucose Oxyhemoglobin Sodium Potassium Chloride Carbon Dioxide BUN Creatinine Glucose POC Glucose 137 H 215 H 122 H Lactic Acid Calcium AST Phosphorus Total Protein Albumin C-Reactive Protein Arterial Blood Glucose Arterial Blood Ionized Calcium Urine WBC (Auto) 01/18/20 01/18/20 01/18/20 07:31 07:31 11:39 WBC 12.1 H RBC 3.23 L Hgb 9.7 L Hct 28.7 L MCHC RDW Plt Count Lymph % (Auto) 9.2 L Lymph # 1.1 L Lymph # (Auto) Seg Neutrophils % 85.0 H Seg Neuts % (Manual) Lymphocytes % (Manual) Seg Neutrophils # 10.3 H Seg Neutrophils # Man Nucleated RBC % Lymphocytes # (Manual) Monocytes # (Manual) PT INR Heparin Anti-Xa Level POC ABG pO2 ABG pH ABG Hemoglobin ABG Oxyhemoglobin ABG pO2 ABG HCO3 ABG O2 Saturation ABG Base Excess ABG Potassium ABG Glucose Oxyhemoglobin Sodium Potassium Chloride Carbon Dioxide BUN Creatinine 0.4 L Glucose 108 H POC Glucose 172 H Lactic Acid Calcium AST Phosphorus Total Protein 5.3 L Albumin 2.1 L C-Reactive Protein Arterial Blood Glucose Arterial Blood Ionized Calcium Urine WBC (Auto) 01/18/20 01/19/20 01/19/20 18:22 00:15 11:30 WBC RBC Hgb Hct MCHC RDW Plt Count Lymph % (Auto) Lymph # Lymph # (Auto) Seg Neutrophils % Seg Neuts % (Manual) Lymphocytes % (Manual) Seg Neutrophils # Seg Neutrophils # Man Nucleated RBC % Lymphocytes # (Manual) Monocytes # (Manual) PT INR Heparin Anti-Xa Level POC ABG pO2 ABG pH ABG Hemoglobin ABG Oxyhemoglobin ABG pO2 ABG HCO3 ABG O2 Saturation ABG Base Excess ABG Potassium ABG Glucose Oxyhemoglobin Sodium Potassium Chloride Carbon Dioxide BUN Creatinine Glucose POC Glucose 119 H 135 H 163 H Lactic Acid Calcium AST Phosphorus Total Protein Albumin C-Reactive Protein Arterial Blood Glucose Arterial Blood Ionized Calcium Urine WBC (Auto) 01/19/20 01/19/20 01/20/20 17:44 22:59 03:44 WBC 11.1 H RBC 2.77 L Hgb 8.4 L Hct 25.0 L MCHC RDW Plt Count Lymph % (Auto) Lymph # Lymph # (Auto) Seg Neutrophils % 74.6 H Seg Neuts % (Manual) Lymphocytes % (Manual) Seg Neutrophils # 8.3 H Seg Neutrophils # Man Nucleated RBC % Lymphocytes # (Manual) Monocytes # (Manual) PT INR Heparin Anti-Xa Level POC ABG pO2 ABG pH ABG Hemoglobin ABG Oxyhemoglobin ABG pO2 ABG HCO3 ABG O2 Saturation ABG Base Excess ABG Potassium ABG Glucose Oxyhemoglobin Sodium Potassium Chloride Carbon Dioxide BUN Creatinine Glucose POC Glucose 161 H 182 H Lactic Acid Calcium AST Phosphorus Total Protein Albumin C-Reactive Protein Arterial Blood Glucose Arterial Blood Ionized Calcium Urine WBC (Auto) 01/20/20 01/21/20 01/21/20 03:44 00:07 05:51 WBC RBC 2.84 L Hgb 8.6 L Hct 25.5 L MCHC RDW Plt Count 463 H Lymph % (Auto) Lymph # Lymph # (Auto) Seg Neutrophils % 76.9 H Seg Neuts % (Manual) Lymphocytes % (Manual) Seg Neutrophils # 7.8 H Seg Neutrophils # Man Nucleated RBC % Lymphocytes # (Manual) Monocytes # (Manual) PT INR Heparin Anti-Xa Level POC ABG pO2 ABG pH ABG Hemoglobin ABG Oxyhemoglobin ABG pO2 ABG HCO3 ABG O2 Saturation ABG Base Excess ABG Potassium ABG Glucose Oxyhemoglobin Sodium Potassium Chloride Carbon Dioxide BUN Creatinine 0.4 L Glucose POC Glucose 68 L Lactic Acid Calcium 7.9 L AST Phosphorus Total Protein 4.7 L Albumin 1.9 L C-Reactive Protein Arterial Blood Glucose Arterial Blood Ionized Calcium Urine WBC (Auto) 01/21/20 01/21/20 01/21/20 05:51 05:58 11:25 WBC RBC Hgb Hct MCHC RDW Plt Count Lymph % (Auto) Lymph # Lymph # (Auto) Seg Neutrophils % Seg Neuts % (Manual) Lymphocytes % (Manual) Seg Neutrophils # Seg Neutrophils # Man Nucleated RBC % Lymphocytes # (Manual) Monocytes # (Manual) PT INR Heparin Anti-Xa Level POC ABG pO2 ABG pH ABG Hemoglobin ABG Oxyhemoglobin ABG pO2 ABG HCO3 ABG O2 Saturation ABG Base Excess ABG Potassium ABG Glucose Oxyhemoglobin Sodium Potassium Chloride Carbon Dioxide 20 L BUN Creatinine 0.5 L Glucose 130 H POC Glucose 185 H 163 H Lactic Acid Calcium 7.6 L AST Phosphorus Total Protein 5.0 L Albumin 1.9 L C-Reactive Protein Arterial Blood Glucose Arterial Blood Ionized Calcium Urine WBC (Auto) 01/21/20 01/21/20 01/22/20 16:22 21:17 01:28 WBC RBC 2.60 L Hgb 8.0 L Hct 23.3 L MCHC RDW Plt Count Lymph % (Auto) Lymph # Lymph # (Auto) Seg Neutrophils % 74.8 H Seg Neuts % (Manual) Lymphocytes % (Manual) Seg Neutrophils # Seg Neutrophils # Man Nucleated RBC % Lymphocytes # (Manual) Monocytes # (Manual) PT INR Heparin Anti-Xa Level POC ABG pO2 ABG pH ABG Hemoglobin ABG Oxyhemoglobin ABG pO2 ABG HCO3 ABG O2 Saturation ABG Base Excess ABG Potassium ABG Glucose Oxyhemoglobin Sodium Potassium Chloride Carbon Dioxide BUN Creatinine Glucose POC Glucose 177 H 67 L Lactic Acid Calcium AST Phosphorus Total Protein Albumin C-Reactive Protein Arterial Blood Glucose Arterial Blood Ionized Calcium Urine WBC (Auto) 01/22/20 01/22/20 01/22/20 01:28 01:28 12:06 WBC RBC Hgb Hct MCHC RDW Plt Count Lymph % (Auto) Lymph # Lymph # (Auto) Seg Neutrophils % Seg Neuts % (Manual) Lymphocytes % (Manual) Seg Neutrophils # Seg Neutrophils # Man Nucleated RBC % Lymphocytes # (Manual) Monocytes # (Manual) PT INR Heparin Anti-Xa Level POC ABG pO2 ABG pH ABG Hemoglobin ABG Oxyhemoglobin ABG pO2 ABG HCO3 ABG O2 Saturation ABG Base Excess ABG Potassium ABG Glucose Oxyhemoglobin Sodium Potassium Chloride 107.6 H Carbon Dioxide BUN Creatinine 0.4 L Glucose 152 H POC Glucose 203 H 140 H Lactic Acid Calcium 7.5 L AST Phosphorus Total Protein 4.0 L Albumin 2.0 L C-Reactive Protein Arterial Blood Glucose Arterial Blood Ionized Calcium Urine WBC (Auto) 01/22/20 01/22/20 01/23/20 16:24 22:55 06:10 WBC RBC 2.68 L Hgb 8.6 L Hct 24.1 L MCHC 36 H RDW Plt Count Lymph % (Auto) Lymph # Lymph # (Auto) Seg Neutrophils % Seg Neuts % (Manual) 71.0 H Lymphocytes % (Manual) Seg Neutrophils # Seg Neutrophils # Man Nucleated RBC % Lymphocytes # (Manual) Monocytes # (Manual) PT INR Heparin Anti-Xa Level POC ABG pO2 ABG pH ABG Hemoglobin ABG Oxyhemoglobin ABG pO2 ABG HCO3 ABG O2 Saturation ABG Base Excess ABG Potassium ABG Glucose Oxyhemoglobin Sodium Potassium Chloride Carbon Dioxide BUN Creatinine Glucose POC Glucose 205 H 196 H Lactic Acid Calcium AST Phosphorus Total Protein Albumin C-Reactive Protein Arterial Blood Glucose Arterial Blood Ionized Calcium Urine WBC (Auto) 01/23/20 01/23/20 01/23/20 06:10 07:35 11:59 WBC RBC Hgb Hct MCHC RDW Plt Count Lymph % (Auto) Lymph # Lymph # (Auto) Seg Neutrophils % Seg Neuts % (Manual) Lymphocytes % (Manual) Seg Neutrophils # Seg Neutrophils # Man Nucleated RBC % Lymphocytes # (Manual) Monocytes # (Manual) PT INR Heparin Anti-Xa Level POC ABG pO2 ABG pH ABG Hemoglobin ABG Oxyhemoglobin ABG pO2 ABG HCO3 ABG O2 Saturation ABG Base Excess ABG Potassium ABG Glucose Oxyhemoglobin Sodium Potassium Chloride 108.8 H Carbon Dioxide BUN Creatinine 0.4 L Glucose 105 H POC Glucose 111 H 123 H Lactic Acid Calcium 8.0 L AST Phosphorus Total Protein 4.9 L D Albumin 2.0 L C-Reactive Protein Arterial Blood Glucose Arterial Blood Ionized Calcium Urine WBC (Auto) 01/23/20 01/24/20 01/24/20 22:45 11:24 16:41 WBC RBC Hgb Hct MCHC RDW Plt Count Lymph % (Auto) Lymph # Lymph # (Auto) Seg Neutrophils % Seg Neuts % (Manual) Lymphocytes % (Manual) Seg Neutrophils # Seg Neutrophils # Man Nucleated RBC % Lymphocytes # (Manual) Monocytes # (Manual) PT INR Heparin Anti-Xa Level POC ABG pO2 ABG pH ABG Hemoglobin ABG Oxyhemoglobin ABG pO2 ABG HCO3 ABG O2 Saturation ABG Base Excess ABG Potassium ABG Glucose Oxyhemoglobin Sodium Potassium Chloride Carbon Dioxide BUN Creatinine Glucose POC Glucose 180 H 182 H 177 H Lactic Acid Calcium AST Phosphorus Total Protein Albumin C-Reactive Protein Arterial Blood Glucose Arterial Blood Ionized Calcium Urine WBC (Auto) 01/24/20 01/25/20 01/25/20 23:11 07:12 11:35 WBC RBC Hgb Hct MCHC RDW Plt Count Lymph % (Auto) Lymph # Lymph # (Auto) Seg Neutrophils % Seg Neuts % (Manual) Lymphocytes % (Manual) Seg Neutrophils # Seg Neutrophils # Man Nucleated RBC % Lymphocytes # (Manual) Monocytes # (Manual) PT INR Heparin Anti-Xa Level POC ABG pO2 ABG pH ABG Hemoglobin ABG Oxyhemoglobin ABG pO2 ABG HCO3 ABG O2 Saturation ABG Base Excess ABG Potassium ABG Glucose Oxyhemoglobin Sodium Potassium Chloride Carbon Dioxide BUN Creatinine Glucose POC Glucose 142 H 135 H 142 H Lactic Acid Calcium AST Phosphorus Total Protein Albumin C-Reactive Protein Arterial Blood Glucose Arterial Blood Ionized Calcium Urine WBC (Auto) 01/25/20 01/26/20 01/26/20 16:33 00:04 11:35 WBC RBC Hgb Hct MCHC RDW Plt Count Lymph % (Auto) Lymph # Lymph # (Auto) Seg Neutrophils % Seg Neuts % (Manual) Lymphocytes % (Manual) Seg Neutrophils # Seg Neutrophils # Man Nucleated RBC % Lymphocytes # (Manual) Monocytes # (Manual) PT INR Heparin Anti-Xa Level POC ABG pO2 ABG pH ABG Hemoglobin ABG Oxyhemoglobin ABG pO2 ABG HCO3 ABG O2 Saturation ABG Base Excess ABG Potassium ABG Glucose Oxyhemoglobin Sodium Potassium Chloride Carbon Dioxide BUN Creatinine Glucose POC Glucose 247 H 233 H 200 H Lactic Acid Calcium AST Phosphorus Total Protein Albumin C-Reactive Protein Arterial Blood Glucose Arterial Blood Ionized Calcium Urine WBC (Auto) 01/26/20 01/26/20 01/26/20 16:30 16:30 17:19 WBC RBC Hgb 7.4 L Hct 22.0 L MCHC RDW Plt Count Lymph % (Auto) Lymph # Lymph # (Auto) Seg Neutrophils % Seg Neuts % (Manual) Lymphocytes % (Manual) Seg Neutrophils # Seg Neutrophils # Man Nucleated RBC % Lymphocytes # (Manual) Monocytes # (Manual) PT 18.4 H INR 1.50 H Heparin Anti-Xa Level POC ABG pO2 ABG pH ABG Hemoglobin ABG Oxyhemoglobin ABG pO2 ABG HCO3 ABG O2 Saturation ABG Base Excess ABG Potassium ABG Glucose Oxyhemoglobin Sodium Potassium Chloride Carbon Dioxide BUN Creatinine Glucose POC Glucose 67 L Lactic Acid Calcium AST Phosphorus Total Protein Albumin C-Reactive Protein Arterial Blood Glucose Arterial Blood Ionized Calcium Urine WBC (Auto) 01/26/20 01/26/20 01/27/20 20:24 21:32 00:16 WBC RBC Hgb Hct MCHC RDW Plt Count Lymph % (Auto) Lymph # Lymph # (Auto) Seg Neutrophils % Seg Neuts % (Manual) Lymphocytes % (Manual) Seg Neutrophils # Seg Neutrophils # Man Nucleated RBC % Lymphocytes # (Manual) Monocytes # (Manual) PT INR Heparin Anti-Xa Level POC ABG pO2 51.8 L ABG pH ABG Hemoglobin 8.5 L ABG Oxyhemoglobin 84.7 L ABG pO2 ABG HCO3 ABG O2 Saturation ABG Base Excess ABG Potassium ABG Glucose Oxyhemoglobin Sodium Potassium Chloride Carbon Dioxide BUN Creatinine Glucose POC Glucose 162 H 141 H Lactic Acid Calcium AST Phosphorus Total Protein Albumin C-Reactive Protein Arterial Blood Glucose Arterial Blood Ionized Calcium Urine WBC (Auto) 01/27/20 01/27/20 01/27/20 01:42 02:18 05:57 WBC RBC Hgb Hct MCHC RDW Plt Count Lymph % (Auto) Lymph # Lymph # (Auto) Seg Neutrophils % Seg Neuts % (Manual) Lymphocytes % (Manual) Seg Neutrophils # Seg Neutrophils # Man Nucleated RBC % Lymphocytes # (Manual) Monocytes # (Manual) PT INR Heparin Anti-Xa Level 2.00 H POC ABG pO2 ABG pH ABG Hemoglobin ABG Oxyhemoglobin ABG pO2 ABG HCO3 ABG O2 Saturation ABG Base Excess ABG Potassium ABG Glucose Oxyhemoglobin Sodium Potassium Chloride Carbon Dioxide BUN Creatinine Glucose POC Glucose 183 H 124 H Lactic Acid Calcium AST Phosphorus Total Protein Albumin C-Reactive Protein Arterial Blood Glucose Arterial Blood Ionized Calcium Urine WBC (Auto) 01/27/20 01/27/20 01/27/20 06:30 06:30 12:23 WBC RBC 2.75 L Hgb 8.4 L Hct 24.9 L MCHC RDW 16.0 H Plt Count 474 H Lymph % (Auto) 12.7 L Lymph # Lymph # (Auto) Seg Neutrophils % 83.2 H Seg Neuts % (Manual) Lymphocytes % (Manual) Seg Neutrophils # 8.4 H Seg Neutrophils # Man Nucleated RBC % Lymphocytes # (Manual) Monocytes # (Manual) PT INR Heparin Anti-Xa Level POC ABG pO2 ABG pH ABG Hemoglobin ABG Oxyhemoglobin ABG pO2 ABG HCO3 ABG O2 Saturation ABG Base Excess ABG Potassium ABG Glucose Oxyhemoglobin Sodium Potassium 3.5 L Chloride 110.2 H Carbon Dioxide BUN Creatinine 0.4 L Glucose 101 H POC Glucose 126 H Lactic Acid Calcium 7.8 L AST Phosphorus Total Protein Albumin C-Reactive Protein Arterial Blood Glucose Arterial Blood Ionized Calcium Urine WBC (Auto) 01/27/20 01/27/20 01/28/20 17:31 23:40 00:00 WBC RBC Hgb Hct MCHC RDW Plt Count Lymph % (Auto) Lymph # Lymph # (Auto) Seg Neutrophils % Seg Neuts % (Manual) Lymphocytes % (Manual) Seg Neutrophils # Seg Neutrophils # Man Nucleated RBC % Lymphocytes # (Manual) Monocytes # (Manual) PT INR Heparin Anti-Xa Level 2.00 H POC ABG pO2 ABG pH ABG Hemoglobin ABG Oxyhemoglobin ABG pO2 ABG HCO3 ABG O2 Saturation ABG Base Excess ABG Potassium ABG Glucose Oxyhemoglobin Sodium Potassium Chloride Carbon Dioxide BUN Creatinine Glucose POC Glucose 133 H 136 H Lactic Acid Calcium AST Phosphorus Total Protein Albumin C-Reactive Protein Arterial Blood Glucose Arterial Blood Ionized Calcium Urine WBC (Auto) 01/28/20 01/28/20 01/28/20 04:26 04:26 05:35 WBC RBC Hgb 9.6 L Hct 28.5 L MCHC RDW Plt Count 508 H Lymph % (Auto) Lymph # Lymph # (Auto) Seg Neutrophils % Seg Neuts % (Manual) Lymphocytes % (Manual) Seg Neutrophils # Seg Neutrophils # Man Nucleated RBC % Lymphocytes # (Manual) Monocytes # (Manual) PT INR Heparin Anti-Xa Level POC ABG pO2 ABG pH ABG Hemoglobin ABG Oxyhemoglobin ABG pO2 ABG HCO3 ABG O2 Saturation ABG Base Excess ABG Potassium ABG Glucose Oxyhemoglobin Sodium Potassium Chloride Carbon Dioxide 19 L BUN 20 H Creatinine 0.5 L Glucose 103 H POC Glucose 135 H Lactic Acid Calcium 7.9 L AST Phosphorus Total Protein Albumin C-Reactive Protein Arterial Blood Glucose Arterial Blood Ionized Calcium Urine WBC (Auto) 01/28/20 01/28/20 01/28/20 08:50 11:10 11:51 WBC RBC Hgb Hct MCHC RDW Plt Count Lymph % (Auto) Lymph # Lymph # (Auto) Seg Neutrophils % Seg Neuts % (Manual) Lymphocytes % (Manual) Seg Neutrophils # Seg Neutrophils # Man Nucleated RBC % Lymphocytes # (Manual) Monocytes # (Manual) PT INR Heparin Anti-Xa Level 0.74 H POC ABG pO2 67.2 L ABG pH ABG Hemoglobin 9.3 L ABG Oxyhemoglobin ABG pO2 ABG HCO3 ABG O2 Saturation ABG Base Excess ABG Potassium ABG Glucose Oxyhemoglobin Sodium Potassium Chloride Carbon Dioxide BUN Creatinine Glucose POC Glucose 160 H Lactic Acid Calcium AST Phosphorus Total Protein Albumin C-Reactive Protein Arterial Blood Glucose Arterial Blood Ionized Calcium Urine WBC (Auto) 01/28/20 01/28/20 01/29/20 17:19 23:53 03:52 WBC RBC Hgb Hct MCHC RDW Plt Count Lymph % (Auto) Lymph # Lymph # (Auto) Seg Neutrophils % Seg Neuts % (Manual) Lymphocytes % (Manual) Seg Neutrophils # Seg Neutrophils # Man Nucleated RBC % Lymphocytes # (Manual) Monocytes # (Manual) PT INR Heparin Anti-Xa Level POC ABG pO2 ABG pH 7.510 H ABG Hemoglobin 7.3 L ABG Oxyhemoglobin ABG pO2 357.0 H ABG HCO3 19.6 L ABG O2 Saturation 99.6 H ABG Base Excess -2.9 L ABG Potassium ABG Glucose Oxyhemoglobin Sodium Potassium Chloride Carbon Dioxide BUN Creatinine Glucose POC Glucose 177 H 142 H Lactic Acid Calcium AST Phosphorus Total Protein Albumin C-Reactive Protein Arterial Blood Glucose Arterial Blood Ionized Calcium Urine WBC (Auto) 01/29/20 01/29/20 01/29/20 04:58 04:58 06:01 WBC 13.1 H RBC 2.75 L Hgb 8.6 L Hct 25.6 L MCHC RDW 17.7 H Plt Count Lymph % (Auto) Lymph # Lymph # (Auto) Seg Neutrophils % Seg Neuts % (Manual) 91.0 H Lymphocytes % (Manual) 6.0 L Seg Neutrophils # Seg Neutrophils # Man 11.9 H Nucleated RBC % 1.0 H Lymphocytes # (Manual) 0.8 L Monocytes # (Manual) PT INR Heparin Anti-Xa Level POC ABG pO2 ABG pH ABG Hemoglobin ABG Oxyhemoglobin ABG pO2 ABG HCO3 ABG O2 Saturation ABG Base Excess ABG Potassium ABG Glucose Oxyhemoglobin Sodium 148 H Potassium 3.5 L D Chloride 113.2 H Carbon Dioxide 21 L BUN 20 H Creatinine Glucose 137 H POC Glucose 167 H Lactic Acid Calcium 8.1 L AST Phosphorus Total Protein Albumin C-Reactive Protein Arterial Blood Glucose Arterial Blood Ionized Calcium Urine WBC (Auto) 01/29/20 01/29/20 01/29/20 11:45 17:52 23:49 WBC RBC Hgb Hct MCHC RDW Plt Count Lymph % (Auto) Lymph # Lymph # (Auto) Seg Neutrophils % Seg Neuts % (Manual) Lymphocytes % (Manual) Seg Neutrophils # Seg Neutrophils # Man Nucleated RBC % Lymphocytes # (Manual) Monocytes # (Manual) PT INR Heparin Anti-Xa Level POC ABG pO2 ABG pH ABG Hemoglobin ABG Oxyhemoglobin ABG pO2 ABG HCO3 ABG O2 Saturation ABG Base Excess ABG Potassium ABG Glucose Oxyhemoglobin Sodium Potassium Chloride Carbon Dioxide BUN Creatinine Glucose POC Glucose 185 H 226 H 141 H Lactic Acid Calcium AST Phosphorus Total Protein Albumin C-Reactive Protein Arterial Blood Glucose Arterial Blood Ionized Calcium Urine WBC (Auto) 01/29/20 01/30/20 01/30/20 Unknown 03:24 04:00 WBC RBC Hgb 7.8 L Hct 23.5 L MCHC RDW Plt Count Lymph % (Auto) Lymph # Lymph # (Auto) Seg Neutrophils % Seg Neuts % (Manual) Lymphocytes % (Manual) Seg Neutrophils # Seg Neutrophils # Man Nucleated RBC % Lymphocytes # (Manual) Monocytes # (Manual) PT INR Heparin Anti-Xa Level POC ABG pO2 ABG pH 7.485 H ABG Hemoglobin 6.7 L ABG Oxyhemoglobin ABG pO2 102.0 H ABG HCO3 ABG O2 Saturation ABG Base Excess ABG Potassium ABG Glucose Oxyhemoglobin Sodium Potassium Chloride Carbon Dioxide BUN Creatinine Glucose POC Glucose Lactic Acid Calcium AST Phosphorus Total Protein Albumin C-Reactive Protein 14.80 H Arterial Blood Glucose Arterial Blood Ionized Calcium Urine WBC (Auto) 01/30/20 01/30/20 01/30/20 05:50 11:15 17:07 WBC RBC Hgb Hct MCHC RDW Plt Count Lymph % (Auto) Lymph # Lymph # (Auto) Seg Neutrophils % Seg Neuts % (Manual) Lymphocytes % (Manual) Seg Neutrophils # Seg Neutrophils # Man Nucleated RBC % Lymphocytes # (Manual) Monocytes # (Manual) PT INR Heparin Anti-Xa Level POC ABG pO2 ABG pH ABG Hemoglobin ABG Oxyhemoglobin ABG pO2 ABG HCO3 ABG O2 Saturation ABG Base Excess ABG Potassium ABG Glucose Oxyhemoglobin Sodium Potassium Chloride Carbon Dioxide BUN Creatinine Glucose POC Glucose 122 H 207 H 124 H Lactic Acid Calcium AST Phosphorus Total Protein Albumin C-Reactive Protein Arterial Blood Glucose Arterial Blood Ionized Calcium Urine WBC (Auto) 01/30/20 01/31/20 01/31/20 17:08 00:10 04:52 WBC RBC Hgb Hct MCHC RDW Plt Count Lymph % (Auto) Lymph # Lymph # (Auto) Seg Neutrophils % Seg Neuts % (Manual) Lymphocytes % (Manual) Seg Neutrophils # Seg Neutrophils # Man Nucleated RBC % Lymphocytes # (Manual) Monocytes # (Manual) PT INR Heparin Anti-Xa Level POC ABG pO2 ABG pH 7.504 H 7.486 H ABG Hemoglobin 7.4 L 6.2 L ABG Oxyhemoglobin ABG pO2 169.2 H 121.7 H ABG HCO3 27.1 H ABG O2 Saturation 99.1 H ABG Base Excess 3.4 H ABG Potassium ABG Glucose Oxyhemoglobin Sodium Potassium Chloride Carbon Dioxide BUN Creatinine Glucose POC Glucose 191 H Lactic Acid Calcium AST Phosphorus Total Protein Albumin C-Reactive Protein Arterial Blood Glucose Arterial Blood Ionized Calcium Urine WBC (Auto) 01/31/20 01/31/20 01/31/20 05:37 11:59 12:40 WBC RBC 2.41 L Hgb 7.5 L Hct 22.3 L MCHC RDW 22.2 H Plt Count Lymph % (Auto) Lymph # Lymph # (Auto) Seg Neutrophils % Seg Neuts % (Manual) 94.0 H Lymphocytes % (Manual) 2.0 L Seg Neutrophils # Seg Neutrophils # Man 9.4 H Nucleated RBC % Lymphocytes # (Manual) 0.2 L Monocytes # (Manual) PT INR Heparin Anti-Xa Level POC ABG pO2 ABG pH ABG Hemoglobin ABG Oxyhemoglobin ABG pO2 ABG HCO3 ABG O2 Saturation ABG Base Excess ABG Potassium ABG Glucose Oxyhemoglobin Sodium Potassium Chloride Carbon Dioxide BUN Creatinine Glucose POC Glucose 175 H 220 H Lactic Acid Calcium AST Phosphorus Total Protein Albumin C-Reactive Protein Arterial Blood Glucose Arterial Blood Ionized Calcium Urine WBC (Auto) 01/31/20 01/31/20 01/31/20 12:40 14:40 18:18 WBC RBC Hgb Hct MCHC RDW Plt Count Lymph % (Auto) Lymph # Lymph # (Auto) Seg Neutrophils % Seg Neuts % (Manual) Lymphocytes % (Manual) Seg Neutrophils # Seg Neutrophils # Man Nucleated RBC % Lymphocytes # (Manual) Monocytes # (Manual) PT INR Heparin Anti-Xa Level POC ABG pO2 124.7 H ABG pH 7.542 H ABG Hemoglobin 7.8 L ABG Oxyhemoglobin ABG pO2 ABG HCO3 ABG O2 Saturation ABG Base Excess ABG Potassium ABG Glucose Oxyhemoglobin Sodium 151 H Potassium 2.1 L* D Chloride 108.9 H Carbon Dioxide BUN 22 H Creatinine Glucose 194 H POC Glucose 181 H Lactic Acid Calcium 8.1 L AST Phosphorus Total Protein 4.8 L Albumin 2.3 L C-Reactive Protein Arterial Blood Glucose Arterial Blood Ionized Calcium Urine WBC (Auto) 02/01/20 02/01/20 02/01/20 00:11 03:14 04:32 WBC 11.9 H RBC 2.47 L Hgb 7.6 L Hct 22.8 L MCHC RDW 22.7 H Plt Count Lymph % (Auto) Lymph # Lymph # (Auto) Seg Neutrophils % Seg Neuts % (Manual) 90.0 H Lymphocytes % (Manual) 5.0 L Seg Neutrophils # Seg Neutrophils # Man 10.7 H Nucleated RBC % Lymphocytes # (Manual) 0.6 L Monocytes # (Manual) PT INR Heparin Anti-Xa Level POC ABG pO2 ABG pH 7.564 H ABG Hemoglobin 7.6 L ABG Oxyhemoglobin ABG pO2 124.1 H ABG HCO3 29.6 H ABG O2 Saturation ABG Base Excess 7.0 H ABG Potassium ABG Glucose Oxyhemoglobin Sodium Potassium Chloride Carbon Dioxide BUN Creatinine Glucose POC Glucose 190 H Lactic Acid Calcium AST Phosphorus Total Protein Albumin C-Reactive Protein Arterial Blood Glucose Arterial Blood Ionized Calcium Urine WBC (Auto) 02/01/20 02/01/20 02/01/20 04:32 05:28 11:56 WBC RBC Hgb Hct MCHC RDW Plt Count Lymph % (Auto) Lymph # Lymph # (Auto) Seg Neutrophils % Seg Neuts % (Manual) Lymphocytes % (Manual) Seg Neutrophils # Seg Neutrophils # Man Nucleated RBC % Lymphocytes # (Manual) Monocytes # (Manual) PT INR Heparin Anti-Xa Level POC ABG pO2 ABG pH ABG Hemoglobin ABG Oxyhemoglobin ABG pO2 ABG HCO3 ABG O2 Saturation ABG Base Excess ABG Potassium ABG Glucose Oxyhemoglobin Sodium 149 H Potassium 2.6 L* D Chloride Carbon Dioxide 33 H BUN 23 H Creatinine 0.5 L Glucose 174 H POC Glucose 187 H 195 H Lactic Acid Calcium 8.0 L AST Phosphorus 1.60 L Total Protein Albumin C-Reactive Protein Arterial Blood Glucose Arterial Blood Ionized Calcium Urine WBC (Auto) 02/01/20 02/01/20 02/02/20 18:15 23:35 04:33 WBC RBC Hgb Hct MCHC RDW Plt Count Lymph % (Auto) Lymph # Lymph # (Auto) Seg Neutrophils % Seg Neuts % (Manual) Lymphocytes % (Manual) Seg Neutrophils # Seg Neutrophils # Man Nucleated RBC % Lymphocytes # (Manual) Monocytes # (Manual) PT INR Heparin Anti-Xa Level POC ABG pO2 ABG pH 7.549 H ABG Hemoglobin 9.8 L ABG Oxyhemoglobin ABG pO2 ABG HCO3 ABG O2 Saturation ABG Base Excess ABG Potassium ABG Glucose Oxyhemoglobin Sodium Potassium Chloride Carbon Dioxide BUN Creatinine Glucose POC Glucose 226 H 252 H Lactic Acid Calcium AST Phosphorus Total Protein Albumin C-Reactive Protein Arterial Blood Glucose Arterial Blood Ionized Calcium Urine WBC (Auto) 02/02/20 02/02/20 02/02/20 05:25 05:25 05:40 WBC 15.5 H RBC 2.43 L Hgb 7.6 L Hct 22.9 L MCHC RDW 23.6 H Plt Count Lymph % (Auto) Lymph # Lymph # (Auto) Seg Neutrophils % Seg Neuts % (Manual) 89.0 H Lymphocytes % (Manual) 3.0 L Seg Neutrophils # Seg Neutrophils # Man 13.8 H Nucleated RBC % Lymphocytes # (Manual) 0.5 L Monocytes # (Manual) 0.9 H PT INR Heparin Anti-Xa Level POC ABG pO2 ABG pH ABG Hemoglobin ABG Oxyhemoglobin ABG pO2 ABG HCO3 ABG O2 Saturation ABG Base Excess ABG Potassium ABG Glucose Oxyhemoglobin Sodium Potassium 2.6 L* Chloride Carbon Dioxide 33 H BUN 26 H Creatinine Glucose 175 H POC Glucose 181 H Lactic Acid Calcium 7.9 L AST Phosphorus Total Protein Albumin C-Reactive Protein Arterial Blood Glucose Arterial Blood Ionized Calcium Urine WBC (Auto) 02/02/20 02/02/20 02/02/20 11:55 14:45 17:18 WBC RBC Hgb Hct MCHC RDW Plt Count Lymph % (Auto) Lymph # Lymph # (Auto) Seg Neutrophils % Seg Neuts % (Manual) Lymphocytes % (Manual) Seg Neutrophils # Seg Neutrophils # Man Nucleated RBC % Lymphocytes # (Manual) Monocytes # (Manual) PT INR Heparin Anti-Xa Level POC ABG pO2 ABG pH 7.56 H ABG Hemoglobin 7.6 L ABG Oxyhemoglobin ABG pO2 ABG HCO3 ABG O2 Saturation ABG Base Excess ABG Potassium ABG Glucose Oxyhemoglobin Sodium Potassium Chloride Carbon Dioxide BUN Creatinine Glucose POC Glucose 226 H 227 H Lactic Acid Calcium AST Phosphorus Total Protein Albumin C-Reactive Protein Arterial Blood Glucose Arterial Blood Ionized Calcium Urine WBC (Auto) 02/02/20 02/03/20 02/03/20 20:54 00:02 05:14 WBC 18.7 H RBC 2.45 L Hgb 7.6 L Hct 23.2 L MCHC RDW 23.5 H Plt Count Lymph % (Auto) Lymph # Lymph # (Auto) Seg Neutrophils % Seg Neuts % (Manual) 94.0 H Lymphocytes % (Manual) 3.0 L Seg Neutrophils # Seg Neutrophils # Man 17.6 H Nucleated RBC % Lymphocytes # (Manual) 0.6 L Monocytes # (Manual) PT INR Heparin Anti-Xa Level POC ABG pO2 ABG pH ABG Hemoglobin ABG Oxyhemoglobin ABG pO2 ABG HCO3 ABG O2 Saturation ABG Base Excess ABG Potassium ABG Glucose Oxyhemoglobin Sodium Potassium 3.2 L D Chloride Carbon Dioxide BUN Creatinine Glucose POC Glucose 204 H Lactic Acid Calcium AST Phosphorus Total Protein Albumin C-Reactive Protein Arterial Blood Glucose Arterial Blood Ionized Calcium Urine WBC (Auto) 02/03/20 02/03/20 02/03/20 05:14 05:14 05:20 WBC RBC Hgb Hct MCHC RDW Plt Count Lymph % (Auto) Lymph # Lymph # (Auto) Seg Neutrophils % Seg Neuts % (Manual) Lymphocytes % (Manual) Seg Neutrophils # Seg Neutrophils # Man Nucleated RBC % Lymphocytes # (Manual) Monocytes # (Manual) PT INR Heparin Anti-Xa Level POC ABG pO2 ABG pH ABG Hemoglobin ABG Oxyhemoglobin ABG pO2 ABG HCO3 ABG O2 Saturation ABG Base Excess ABG Potassium ABG Glucose Oxyhemoglobin Sodium Potassium 3.1 L Chloride Carbon Dioxide 33 H BUN 29 H Creatinine 0.5 L Glucose 160 H POC Glucose 146 H Lactic Acid Calcium 7.9 L AST Phosphorus 2.30 L Total Protein 4.8 L Albumin 2.4 L C-Reactive Protein Arterial Blood Glucose Arterial Blood Ionized Calcium Urine WBC (Auto) 02/03/20 02/03/20 02/03/20 12:35 18:14 23:26 WBC RBC Hgb Hct MCHC RDW Plt Count Lymph % (Auto) Lymph # Lymph # (Auto) Seg Neutrophils % Seg Neuts % (Manual) Lymphocytes % (Manual) Seg Neutrophils # Seg Neutrophils # Man Nucleated RBC % Lymphocytes # (Manual) Monocytes # (Manual) PT INR Heparin Anti-Xa Level POC ABG pO2 ABG pH ABG Hemoglobin ABG Oxyhemoglobin ABG pO2 ABG HCO3 ABG O2 Saturation ABG Base Excess ABG Potassium ABG Glucose Oxyhemoglobin Sodium Potassium Chloride Carbon Dioxide BUN Creatinine Glucose POC Glucose 219 H 248 H 173 H Lactic Acid Calcium AST Phosphorus Total Protein Albumin C-Reactive Protein Arterial Blood Glucose Arterial Blood Ionized Calcium Urine WBC (Auto) 02/04/20 02/04/20 02/04/20 05:34 05:36 06:51 WBC RBC Hgb Hct MCHC RDW Plt Count Lymph % (Auto) Lymph # Lymph # (Auto) Seg Neutrophils % Seg Neuts % (Manual) Lymphocytes % (Manual) Seg Neutrophils # Seg Neutrophils # Man Nucleated RBC % Lymphocytes # (Manual) Monocytes # (Manual) PT INR Heparin Anti-Xa Level POC ABG pO2 ABG pH ABG Hemoglobin ABG Oxyhemoglobin ABG pO2 ABG HCO3 ABG O2 Saturation ABG Base Excess ABG Potassium ABG Glucose Oxyhemoglobin Sodium Potassium Chloride Carbon Dioxide BUN Creatinine Glucose POC Glucose 56 L 64 L 127 H Lactic Acid Calcium AST Phosphorus Total Protein Albumin C-Reactive Protein Arterial Blood Glucose Arterial Blood Ionized Calcium Urine WBC (Auto) 02/04/20 02/04/20 02/04/20 11:57 13:42 13:53 WBC 19.2 H RBC 2.48 L Hgb 7.8 L Hct 23.5 L MCHC RDW 24.2 H Plt Count Lymph % (Auto) Lymph # Lymph # (Auto) Seg Neutrophils % Seg Neuts % (Manual) 97.0 H Lymphocytes % (Manual) 2.0 L Seg Neutrophils # Seg Neutrophils # Man 18.6 H Nucleated RBC % Lymphocytes # (Manual) 0.4 L Monocytes # (Manual) PT INR Heparin Anti-Xa Level POC ABG pO2 118.2 H ABG pH 7.525 H ABG Hemoglobin 8.7 L ABG Oxyhemoglobin ABG pO2 ABG HCO3 ABG O2 Saturation ABG Base Excess ABG Potassium 2.8 L ABG Glucose 185 H Oxyhemoglobin Sodium Potassium Chloride Carbon Dioxide BUN Creatinine Glucose POC Glucose 224 H Lactic Acid Calcium AST Phosphorus Total Protein Albumin C-Reactive Protein Arterial Blood Glucose 185 H Arterial Blood Ionized Calcium 4.5 L Urine WBC (Auto) 02/04/20 02/04/20 02/04/20 13:53 18:15 23:35 WBC RBC Hgb Hct MCHC RDW Plt Count Lymph % (Auto) Lymph # Lymph # (Auto) Seg Neutrophils % Seg Neuts % (Manual) Lymphocytes % (Manual) Seg Neutrophils # Seg Neutrophils # Man Nucleated RBC % Lymphocytes # (Manual) Monocytes # (Manual) PT INR Heparin Anti-Xa Level POC ABG pO2 ABG pH ABG Hemoglobin ABG Oxyhemoglobin ABG pO2 ABG HCO3 ABG O2 Saturation ABG Base Excess ABG Potassium ABG Glucose Oxyhemoglobin Sodium 147 H Potassium 2.8 L* Chloride Carbon Dioxide 38 H BUN 33 H Creatinine 0.5 L Glucose 202 H POC Glucose 215 H 197 H Lactic Acid Calcium AST Phosphorus Total Protein Albumin C-Reactive Protein Arterial Blood Glucose Arterial Blood Ionized Calcium Urine WBC (Auto) 02/05/20 02/05/20 02/05/20 01:03 04:00 04:00 WBC 26.7 H RBC 2.59 L Hgb 8.1 L Hct 24.6 L MCHC RDW 24.1 H Plt Count Lymph % (Auto) 1.6 L Lymph # Lymph # (Auto) 0.4 L Seg Neutrophils % Seg Neuts % (Manual) Lymphocytes % (Manual) Seg Neutrophils # 25.9 H Seg Neutrophils # Man Nucleated RBC % Lymphocytes # (Manual) Monocytes # (Manual) PT INR Heparin Anti-Xa Level POC ABG pO2 ABG pH ABG Hemoglobin 7.1 L ABG Oxyhemoglobin ABG pO2 50.7 L ABG HCO3 29.6 H ABG O2 Saturation 82.7 L ABG Base Excess 4.8 H ABG Potassium ABG Glucose Oxyhemoglobin 81.0 L Sodium 146 H Potassium Chloride Carbon Dioxide 32 H BUN 35 H Creatinine 0.5 L Glucose 226 H POC Glucose Lactic Acid Calcium AST Phosphorus Total Protein 5.1 L Albumin 2.2 L C-Reactive Protein Arterial Blood Glucose Arterial Blood Ionized Calcium Urine WBC (Auto) 02/05/20 02/05/20 02/06/20 05:32 17:56 00:19 WBC RBC Hgb Hct MCHC RDW Plt Count Lymph % (Auto) Lymph # Lymph # (Auto) Seg Neutrophils % Seg Neuts % (Manual) Lymphocytes % (Manual) Seg Neutrophils # Seg Neutrophils # Man Nucleated RBC % Lymphocytes # (Manual) Monocytes # (Manual) PT INR Heparin Anti-Xa Level POC ABG pO2 ABG pH ABG Hemoglobin ABG Oxyhemoglobin ABG pO2 ABG HCO3 ABG O2 Saturation ABG Base Excess ABG Potassium ABG Glucose Oxyhemoglobin Sodium Potassium Chloride Carbon Dioxide BUN Creatinine Glucose POC Glucose 239 H 175 H 309 H Lactic Acid Calcium AST Phosphorus Total Protein Albumin C-Reactive Protein Arterial Blood Glucose Arterial Blood Ionized Calcium Urine WBC (Auto) 02/06/20 02/06/20 02/06/20 04:27 05:11 05:40 WBC RBC Hgb Hct MCHC RDW Plt Count Lymph % (Auto) Lymph # Lymph # (Auto) Seg Neutrophils % Seg Neuts % (Manual) Lymphocytes % (Manual) Seg Neutrophils # Seg Neutrophils # Man Nucleated RBC % Lymphocytes # (Manual) Monocytes # (Manual) PT INR Heparin Anti-Xa Level POC ABG pO2 157.2 H ABG pH 7.551 H ABG Hemoglobin 7.3 L ABG Oxyhemoglobin 98.3 H ABG pO2 ABG HCO3 ABG O2 Saturation ABG Base Excess ABG Potassium ABG Glucose Oxyhemoglobin Sodium 148 H Potassium 3.0 L Chloride 107.3 H Carbon Dioxide 33 H BUN 33 H Creatinine 0.5 L Glucose 283 H POC Glucose 347 H Lactic Acid Calcium 7.9 L AST Phosphorus Total Protein 3.6 L D Albumin 1.2 L C-Reactive Protein Arterial Blood Glucose Arterial Blood Ionized Calcium Urine WBC (Auto) 02/06/20 08:45 WBC 16.3 H RBC 2.12 L Hgb 6.6 L Hct 20.3 L MCHC RDW 24.4 H Plt Count Lymph % (Auto) Lymph # Lymph # (Auto) Seg Neutrophils % Seg Neuts % (Manual) Lymphocytes % (Manual) Seg Neutrophils # Seg Neutrophils # Man Nucleated RBC % Lymphocytes # (Manual) Monocytes # (Manual) PT INR Heparin Anti-Xa Level POC ABG pO2 ABG pH ABG Hemoglobin ABG Oxyhemoglobin ABG pO2 ABG HCO3 ABG O2 Saturation ABG Base Excess ABG Potassium ABG Glucose Oxyhemoglobin Sodium Potassium Chloride Carbon Dioxide BUN Creatinine Glucose POC Glucose Lactic Acid Calcium AST Phosphorus Total Protein Albumin C-Reactive Protein Arterial Blood Glucose Arterial Blood Ionized Calcium Urine WBC (Auto) Allied health notes reviewed: RT
[2020-02-06 13:14] LABS: Anisocytosis 2+; Basophils % (Manual) 0 % (0.0-1.8); Eosinophils % (Manual) 0 % (0.0-4.3); Hypochromasia 1+; Large Platelets Few; Platelet Estimate Consistent w Auto; Target Cells Few; Total Cells Counted 100
[2020-02-06] MEDS ORDERED: LACTATED RINGERS 250 ML IV SCH (18:00)
[2020-02-06] MEDS: traZODone 50 MG TAB PO SCH (21:54)
[2020-02-06] MEDS: MIRTAZAPINE 15 MG TAB PO SCH (21:55)
[2020-02-06] MEDS: DONEPEZIL 10 MG TAB PO SCH (21:55)
[2020-02-07] MEDS: NEOMY 3.5 MG/BACIT 400 UNITS/POLY B 5000 UNITS/GM OINT PACKET TP SCH ×2 (02:45→09:56)
[2020-02-07] MEDS: PIPERACIL/TAZOBACTA 4.5/NS 100 4.5 GM/100 ML VIAL IV SCH ×3 (05:52→21:38)
[2020-02-07] MEDS: INSULIN REGULAR, HUMAN 100 UNIT/ML 3ML VIAL SUB-Q SCH ×5 (07:01→18:13)
--- NOTE | 2020-02-07 08:34 | Progress Note ---
Assessment and Plan Assessment and plan: --Acute hypoxic respiratory failure, status post cardiac arrest Continue mechanical ventilation, nebulizers, wean as tolerated status post extubation 02/02/2020 but had to be reintubated on 02/04 --Shock/ septic shock We will continue Levophed, wean as tolerated Etiology secondary to infected sacral decubitus ulcer and UTI --Hypokalemia Replete as needed Normal magnesium levels, closely monitor electrolytes -- Hypernatremia; Continue free water flushes via G-tube And monitor electrolytes -- Uncontrolled diabetes mellitus Blood sugars are very high , patient did not receive Lantus last night Lantus was already ordered this morning , monitor blood sugars and adjust Accu-Chek sliding scale coverage long-acting insulin DM management with SSI, TF --s/p PEA arrest night on 01/28/2020 and 02/05/2020 s/p CPR per ACLS protocol --Anoxic/hypoxic encephalopathy. Neurology consultation on Sunday with possible EEG/MRI -- Hydropneumothorax, not POA Patient developed hydropneumothorax on 01/15. Surgery evaluated s/p chest tube placed on 01/15. Improved, s/p chest tube removed 01/22, extubated 02/02/2020 Patient is using nasal cannula oxygen/BiPAP and Ventimask as needed -- large Left pleural effusion 01/25 Continue supportive care, pulmonary following --Unstageable sacral decubitus ulcer, infected/POA s/p wound debridement on 01/15. Wound vac in place ID recommend zosyn 4.5 g IV q8h total 6 weeks stop date 02/27/2020 -- UTI (urinary tract infection) Completed antibiotics --h/o Bilateral pulmonary embolism Had pulmonary embolism 7 months ago. CTA chest and LE doppler showed no acute PE or DVT eliquis now stopped -- Dementia: Continue donepezil --Severe protein-calorie malnutrition She is not eating well and is getting feeds through the NG tube. Discussed with - this problem has been chronic agreed for PEG PEG placed 01/13. Now on tube feeds --DVT prophylaxis; SCDs The high probability of a clinically significant, sudden or life threatening deterioration of the [Respiratory, FORENSIC INVESTIGATOR, CVs] system(s) required my full and direct attention, intervention and personal management. The aggregate critical care time was [34] minutes. This time is in addition to time spent performing reported procedures but includes the following: [x] Data Review and interpretation [x] Patient assessment and monitoring of vital signs [x] Documentation [x] Medication orders and management Patient is critically ill, multiple episodes of cardiac arrest Multiple episodes of respiratory arrest requiring mechanical ventilation Very poor prognosis, regional sales consultant recommendations noted and appreciated 02/02; patient was extubated on 02/02/2020, currently on Ventimask 02/03; patient feels slightly better saturating well on Ventimask/BiPAP as needed Hypo-kalemia replenish per protocol Full CODE STATUS 10/1; patient had yet another PEA arrest status post CPR per ACLS protocol Intubated on vent, very poor prognosis, full CODE STATUS 10/2; patient remains intubated on vent, septic shock on Levophed, hypokalemia, poor prognosis 02/07/2020. Patient currently with PSV/CPAP FiO2 50%, PEEP of 6 and pressure support of 10. Continue PSV trials as tolerated and wean per pulmonary. Recall ID consultation. History Interval history: No new issues overnight. Hospitalist Physical - Constitutional Vitals: Temp Pulse Resp BP Pulse Ox 98.7 F 94 H 22 145/74 100 02/07/20 03:28 02/07/20 07:53 02/07/20 08:02 02/07/20 08:02 02/07/20 08:02 General appearance: Present: mild distress, well-nourished, other (Intubated on vent) - EENT Eyes: Present: PERRL, EOM intact ENT: hearing intact, clear oral mucosa, dentition normal - Neck Neck: Present: supple, normal ROM - Respiratory Respiratory effort: normal Respiratory: bilateral: CTA - Cardiovascular Rhythm: regular Heart Sounds: Present: S1 & S2. Absent: gallop, rub - Extremities Extremities: no ischemia, No edema, Full ROM - Abdominal General gastrointestinal: soft, non-tender, non-distended, normal bowel sounds - Integumentary Integumentary: Present: clear, warm, dry - Neurologic Neurologic: CNII-XII intact, moves all extremities Results - Labs CBC & Chem 7: 02/06/20 08:45 02/06/20 05:11 Labs: Laboratory Last Values WBC 16.3 K/mm3 (4.5-11.0) H 02/06/20 08:45 RBC 2.12 M/mm3 (3.65-5.03) L 02/06/20 08:45 Hgb 6.6 gm/dl (10.1-14.3) L 02/06/20 08:45 Hct 20.3 % (30.3-42.9) L 02/06/20 08:45 MCV 96 fl (79-97) 02/06/20 08:45 MCH 31 pg (28-32) 02/06/20 08:45 MCHC 32 % (30-34) 02/06/20 08:45 RDW 24.4 % (13.2-15.2) H 02/06/20 08:45 Plt Count 206 K/mm3 (140-440) 02/06/20 08:45 Lymph % (Auto) TNR 02/06/20 05:11 [place] % (Auto) TNR 02/06/20 05:11 Eos % (Auto) TNR 02/06/20 05:11 Baso % (Auto) TNR 02/06/20 05:11 Lymph # (Auto) TNR 02/06/20 05:11 [place] # (Auto) TNR 02/06/20 05:11 Eos # (Auto) TNR 02/06/20 05:11 Baso # (Auto) TNR 02/06/20 05:11 Add Manual Diff Complete 02/06/20 08:45 Total Counted 100 02/06/20 08:45 Seg Neutrophils % Purchasing Expeditor 02/06/20 08:45 Seg Neuts % (Manual) 98.0 % (40.0-70.0) H 02/06/20 08:45 Band Neutrophils % 0 % 02/06/20 08:45 Lymphocytes % (Manual) 1.0 % (13.4-35.0) L 02/06/20 08:45 Reactive Lymphs % (Man) 0 % 02/06/20 08:45 Monocytes % (Manual) 1.0 % (0.0-7.3) 02/06/20 08:45 Eosinophils % (Manual) 0 % (0.0-4.3) 02/06/20 08:45 Basophils % (Manual) 0 % (0.0-1.8) 02/06/20 08:45 Metamyelocytes % 0 % 02/06/20 08:45 Myelocytes % 0 % 02/06/20 08:45 Promyelocytes % 0 % 02/06/20 08:45 Blast Cells % 0 % 02/06/20 08:45 Nucleated RBC % Not Reportable 02/06/20 08:45 Seg Neutrophils # TNR 02/06/20 05:11 Seg Neutrophils # Man 16.0 K/mm3 (1.8-7.7) H 02/06/20 08:45 Band Neutrophils # 0.0 K/mm3 02/06/20 08:45 Lymphocytes # (Manual) 0.2 K/mm3 (1.2-5.4) L 02/06/20 08:45 Abs React Lymphs (Man) 0.0 K/mm3 02/06/20 08:45 Monocytes # (Manual) 0.2 K/mm3 (0.0-0.8) 02/06/20 08:45 Eosinophils # (Manual) 0.0 K/mm3 (0.0-0.4) 02/06/20 08:45 Basophils # (Manual) 0.0 K/mm3 (0.0-0.1) 02/06/20 08:45 Metamyelocytes # 0.0 K/mm3 02/06/20 08:45 Myelocytes # 0.0 K/mm3 02/06/20 08:45 Promyelocytes # 0.0 K/mm3 02/06/20 08:45 Blast Cells # 0.0 K/mm3 02/06/20 08:45 WBC Morphology Not Reportable 02/06/20 08:45 Hypersegmented Neuts Not Reportable 02/06/20 08:45 Hyposegmented Neuts Not Reportable 02/06/20 08:45 Hypogranular Neuts Not Reportable 02/06/20 08:45 Smudge Cells Not Reportable 02/06/20 08:45 Toxic Granulation Not Reportable 02/06/20 08:45 Toxic Vacuolation Not Reportable 02/06/20 08:45 Dohle Bodies Not Reportable 02/06/20 08:45 Pelger-Huet Anomaly Not Reportable 02/06/20 08:45 Lata Rods Not Reportable 02/06/20 08:45 Platelet Estimate Consistent w auto 02/06/20 08:45 Clumped Platelets Not Reportable 02/06/20 08:45 Plt Clumps, EDTA Not Reportable 02/06/20 08:45 Large Platelets Few 02/06/20 08:45 Giant Platelets Not Reportable 02/06/20 08:45 Platelet Satelliting Not Reportable 02/06/20 08:45 Plt Morphology Comment Not Reportable 02/06/20 08:45 RBC Morphology Not Reportable 02/06/20 08:45 Dimorphic RBCs Not Reportable 02/06/20 08:45 Polychromasia Not Reportable 02/06/20 08:45 Hypochromasia 1+ 02/06/20 08:45 Poikilocytosis Not Reportable 02/06/20 08:45 Anisocytosis 2+ 02/06/20 08:45 Microcytosis Not Reportable 02/06/20 08:45 Macrocytosis Not Reportable 02/06/20 08:45 Spherocytes Not Reportable 02/06/20 08:45 Pappenheimer Bodies Not Reportable 02/06/20 08:45 Sickle Cells Not Reportable 02/06/20 08:45 Target Cells Few 02/06/20 08:45 Tear Drop Cells Not Reportable 02/06/20 08:45 Ovalocytes Not Reportable 02/06/20 08:45 Helmet Cells Not Reportable 02/06/20 08:45 Lombardi-George Bodies Not Reportable 02/06/20 08:45 [place] Rings Not Reportable 02/06/20 08:45 Leonidas Cells Not Reportable 02/06/20 08:45 Bite Cells Not Reportable 02/06/20 08:45 Crenated Cell Not Reportable 02/06/20 08:45 Elliptocytes Not Reportable 02/06/20 08:45 Acanthocytes (Spur) Not Reportable 02/06/20 08:45 Rouleaux Not Reportable 02/06/20 08:45 Hemoglobin C Crystals Not Reportable 02/06/20 08:45 Schistocytes Not Reportable 02/06/20 08:45 Malaria parasites Not Reportable 02/06/20 08:45 Gideon Bodies Not Reportable 02/06/20 08:45 Hem Pathologist Commnt No 02/06/20 08:45 APTT 33.9 Sec. (24.2-36.6) 01/26/20 16:30 PT 14.4 Sec. (12.2-14.9) 02/02/20 05:25 INR 1.11 (0.87-1.13) 02/02/20 05:25 Heparin Anti-Xa Level 0.74 U.I./ml (0.3-0.7) H 01/28/20 08:50 ABG pH 7.551 (7.320-7.450) H 02/06/20 04:27 POC ABG pCO2 38.9 mmHg (32.0-48.0) 02/06/20 04:27 ABG pCO2 46.1 mm Hg 02/05/20 01:03 POC ABG pO2 157.2 mmHg (83-108) H 02/06/20 04:27 ABG pO2 50.7 mm Hg (80.0-90.0) L 02/05/20 01:03 POC ABG HCO3 33.3 02/06/20 04:27 ABG HCO3 29.6 mmol/L (20.0-26.0) H 02/05/20 01:03 ABG O2 Saturation 82.7 % (95.0-99.0) L 02/05/20 01:03 ABG O2 Content 8.2 (0.0-44) 02/05/20 01:03 POC ABG Base Excess 10.1 02/06/20 04:27 ABG Base Excess 4.8 mmol/L (-2.0-3.0) H 02/05/20 01:03 ABG Hemoglobin 7.3 (12.0-17.5) L 02/06/20 04:27 ABG Oxyhemoglobin 98.3 (94-98) H 02/06/20 04:27 ABG Carboxyhemoglobin 1.5 % (0.0-5.0) 02/05/20 01:03 ABG Methemoglobin 0.3 (0.0-1.5) 02/06/20 04:27 ABG Sodium 138.6 mmol/L (136.0-145.0) 02/04/20 13:42 ABG Potassium 2.8 mmol/L (3.40-4.50) L 02/04/20 13:42 ABG Chloride 106.0 mmol/L (98-107) 02/04/20 13:42 ABG Glucose 185 mg/dL (65-95) H 02/04/20 13:42 Oxyhemoglobin 81.0 % (95.0-99.0) L 02/05/20 01:03 Carboxyhemoglobin 0.9 (0.5-1.5) 02/06/20 04:27 FiO2 60.0 02/06/20 04:27 Sodium 148 mmol/L (137-145) H 02/06/20 05:11 Potassium 3.0 mmol/L (3.6-5.0) L 02/06/20 05:11 Chloride 107.3 mmol/L (98-107) H 02/06/20 05:11 Carbon Dioxide 33 mmol/L (22-30) H 02/06/20 05:11 Anion Gap 11 mmol/L 02/06/20 05:11 BUN 33 mg/dL (7-17) H 02/06/20 05:11 Creatinine 0.5 mg/dL (0.6-1.2) L 02/06/20 05:11 Estimated GFR > 60 ml/min 02/06/20 05:11 BUN/Creatinine Ratio 66 % 02/06/20 05:11 Glucose 283 mg/dL (65-100) H 02/06/20 05:11 POC Glucose 164 (70-105) H 02/07/20 05:41 Hemoglobin A1c 5.3 % (4-6) 01/11/20 00:45 Lactic Acid 1.30 mmol/L (0.7-2.0) 01/26/20 23:27 Calcium 7.9 mg/dL (8.4-10.2) L 02/06/20 05:11 Phosphorus 2.30 mg/dL (2.5-4.5) L 02/03/20 05:14 Magnesium 2.20 mg/dL (1.7-2.3) 02/06/20 05:11 Total Bilirubin 0.20 mg/dL (0.1-1.2) 02/06/20 05:11 AST 16 units/L (5-40) 02/06/20 05:11 ALT 18 units/L (7-56) 02/06/20 05:11 Alkaline Phosphatase 51 units/L (35-129) 02/06/20 05:11 C-Reactive Protein 14.80 mg/dL (0.00-1.30) H 01/29/20 Unknown Total Protein 3.6 g/dL (6.3-8.2) L D 02/06/20 05:11 Albumin 1.2 g/dL (3.9-5) L 02/06/20 05:11 Albumin/Globulin Ratio 0.5 % 02/06/20 05:11 TSH 2.440 mlU/mL (0.270-4.200) 01/10/20 10:10 Procalcitonin 1.86 ng/mL (<0.15) 01/29/20 Unknown Arterial Blood Glucose 185 mg/dL (65-95) H 02/04/20 13:42 Arterial Blood Ionized Calcium 4.5 mg/dL (4.6-5.3) L 02/04/20 13:42 Urine Color [place] (Yellow) 01/08/20 Unknown Urine Turbidity Cloudy (Clear) 01/08/20 Unknown Urine pH 5.0 (5.0-7.0) 01/08/20 Unknown Ur Specific [place] 1.018 (1.003-1.030) 01/08/20 Unknown Urine Protein 30 mg/dl mg/dL (Negative) 01/08/20 Unknown Urine Glucose (UA) Neg mg/dL (Negative) 01/08/20 Unknown Urine Ketones Neg mg/dL (Negative) 01/08/20 Unknown Urine Blood Mod (Negative) 01/08/20 Unknown Urine Nitrite Neg (Negative) 01/08/20 Unknown Urine Bilirubin Neg (Negative) 01/08/20 Unknown Urine Urobilinogen < 2.0 mg/dL (<2.0) 01/08/20 Unknown Ur Leukocyte Esterase Sm (Negative) 01/08/20 Unknown Urine WBC (Auto) 11.0 /HPF (0.0-6.0) H 01/08/20 Unknown Urine RBC (Auto) 7.0 /HPF (0.0-6.0) 01/08/20 Unknown U Epithel Cells (Auto) < 1.0 /HPF (0-13.0) 01/08/20 Unknown Urine Bacteria (Auto) 1+ /HPF (Negative) 01/08/20 Unknown Urine Mucus 2+ /HPF 01/08/20 Unknown Urine Yeast (Budding) 1+ /HPF 01/08/20 Unknown Vancomycin Trough 7.9 ug/mL (5.0-20.0) 01/17/20 16:04 Microbiology: Microbiology 02/05/20 01:06 Tracheal Aspirate Sputum Culture - Preliminary Mejía/IV: Voiding Method Indwelling Catheter IV Catheter Type [Left Upper PICC Line arm] IV Catheter Type [Right Upper Mid-line arm] IV Catheter Type [Right Peripheral IV Forearm] Active Medications - Current Medications Current Medications: Generic Name Dose Route Start Last Admin Trade Name Freq PRN Reason Stop Dose Admin Acetaminophen 650 mg 01/08/20 23:14 01/18/20 06:03 Tylenol PO 650 mg Q4H PRN Administration Pain MILD(1-3)/Fever >100.5/GARCIA Lipase/Protease/Amylase 1 each 01/17/20 08:[address] 10,500 Unit FEEDTUBE PRN PRN For Clogged Feeding Tube Atorvastatin Calcium 10 mg 01/09/20 22:00 02/06/20 21:55 Atorvastatin PO 10 mg QHS BRO Administration Dextrose 0 ml 01/08/20 23:14 02/04/20 06:12 D50w (25gm) Syringe IV 15 ml Q30MIN PRN Administration Hypoglycemia Protocol Donepezil HCl 10 mg 01/09/20 22:00 02/06/20 21:55 Aricept PO 10 mg QHS BRO Administration Famotidine 20 mg 01/27/20 10:00 02/06/20 21:54 Pepcid PO 20 mg BID BRO Administration Fluticasone Propionate 100 mcg 01/25/20 20:00 01/26/20 06:09 Flonase NS 100 mcg QDAY PRN Administration Nasal Congestion Heparin Sodium (Porcine) 5,000 unit 01/28/20 10:00 02/06/20 21:55 Heparin SUB-Q 5,000 unit Q12HR BRO Administration Hydrophilic Ointment 1 applic 01/28/20 10:57 Vaseline Lip Therapy TP Q2HR PRN Dry Lips Piperacillin Sod/Tazobactam Sod 4.5 gm in 100 mls @ 200 mls/hr 01/19/20 14:00 02/07/20 05:52 Zosyn/Ns 4.5gm/100ml IV 02/27/20 22:29 200 mls/hr Q8HR BRO Administration Protocol Norepinephrine 4 mg in 250 mls @ 7.5 mls/hr 02/05/20 01:00 02/06/20 15:32 Levophed Drip 4 Mg/Ns 250 Ml IV Infused TITR BRO Titration Protocol 2 MCG/MIN Lactated Ringer's 250 mls @ 250 mls/hr 10/02/20 18:00 Lactated Ringers IV DIRECT BRO Insulin Glargine 5 units 02/06/20 10:00 02/06/20 09:54 Lantus SUB-Q 5 units DAILY BRO Administration Insulin Human Regular 0 unit 01/27/20 12:00 02/07/20 07:01 Humulin R SUB-Q 3 unit Q6HR BRO Administration Protocol Magnesium Hydroxide 30 ml 01/08/20 23:14 Milk Of Magnesia PO Q4H PRN Constipation Megestrol Acetate 400 mg 01/12/20 11:00 02/06/20 09:52 Megestrol PO 400 mg QDAY BRO Administration Mirtazapine 15 mg 01/09/20 22:00 02/06/20 21:55 Remeron PO 15 mg QHS BRO Administration Multi-Ingred Cream/Lotion/Oil/Oint 1 applic 01/28/20 10:57 Artificial Tears Ophth Oint OU Q4HR PRN Dry Eye(s) Neomycin/Polymyxin/Bacitracin 1 applic 02/07/20 01:13 02/07/20 02:45 Triple Antibiotic TP 1 applic QDAY BRO Administration Ondansetron HCl 4 mg 01/08/20 23:14 Zofran IV Q8H PRN Nausea And Vomiting Scopolamine 1 each 02/05/20 10:00 02/05/20 10:00 Transderm-Scop TD 1 each Q3D BRO Administration Simple Syrup 15 ml 01/17/20 08:37 Simple Syrup FEEDTUBE PRN PRN Hypoglycemia Simple Syrup 30 ml 01/17/20 08:37 Simple Syrup FEEDTUBE PRN PRN Hypoglycemia Sodium Bicarbonate 325 mg 01/17/20 08:37 Sodium Bicarbonate FEEDTUBE PRN PRN For Clogged Feeding Tube Sodium Chloride 10 ml 01/09/20 10:00 02/06/20 21:55 Sodium Chloride Flush Syringe 10 Ml IV 10 ml BID BRO Administration Sodium Chloride 10 ml 01/08/20 23:14 Sodium Chloride Flush Syringe 10 Ml IV PRN PRN LINE FLUSH Trazodone HCl 25 mg 01/09/20 22:00 02/06/20 21:54 Desyrel PO 25 mg QHS BRO Administration Nutrition/Malnutrition Assess - Dietary Evaluation Nutrition/Malnutrition Findings: Nutrition Notes Start: 01/09/20 12:13 Freq: Status: Active Protocol: Document 02/03/20 11:26 [email or web address] (Rec: 02/03/20 13:23 [email or web address]) Co-Sign 02/03/20 11:26 NHALL Nutrition Notes Initial or Follow up Reassessment Current Diagnosis Decubitus(Pressure Ulcer), Diabetes,Sepsis Other Pertinent Diagnosis UTI, dementia, PE, Sacral wound Current Diet Vital AF 1.2 at 50ml/hr Labs/Tests K 3.1 BUN 29 BG 160 Pertinent Medications Solucortef KCl 20mEq Height 5 ft 2 in Weight 65 kg Cook Sta Body Weight (kg) 50.00 BMI 26.2 Weight change and time frame Wt change noted. Pt has edema Subjective/Other Information F/U for TF tolerance. Pt extubated yesterday. No TF running at time of visit. Per RN, TF running at goal rate Burn Absent Trauma Absent Current % PO Negligible Minimum of two criteria Yes Fluid Accumulation Moderate to Severe (severe) Reduced Change Agent Strength Measurably Reduced (severe) #3 Nutrition Diagnosis Malnutrition Diagnosis Progress(for reassessment Continues documentation) #2 Nutrition Diagnosis Inadequate oral intake Diagnosis Progress(for reassessment Continues documentation) #1 Nutrition Diagnosis Increased nutrient needs ( specify in comment below) Diagnosis Progress(for reassessment Continues documentation) Is patient on ventilator? No Is Patient Ambulatory and/or Out of Bed No [facility] 1353.840 Kcal/Kg value to use for calculation 24 Approximate Energy Requirements Using 1560 kcal/Kg Calculation Used for Recommendations Kcal/kg Additional Notes Protein Needs: 81-98g(1.25-1.5 ) Fluid Needs: 1ml/kcal Nutrition Intervention Change Diet Order: Continue Nutrition Support: Vital AF 1.2 at 50ml/hr Flush 200ml q4h per MD Kcal 1,440 Protein (gm) 90 Fluid (mL) 973 Goal #1 Meet at least 80% of kcal and protein needs via TF Goal #2 TF tolerance Goal #3 Wound Healing Anticipated Discharge Needs: Continue TF Follow-Up By: 02/10/20 Additional Comments F/U TF tolerance
[2020-02-07] MEDS: HEPARIN 5,000 UNIT/1 ML VIAL SUB-Q SCH ×2 (09:48→21:40)
[2020-02-07] MEDS: FAMOTIDINE 20 MG TAB PO SCH ×2 (09:48→21:38)
[2020-02-07] MEDS: MEGESTROL 400 MG/10 ML ORAL LIQD PO SCH (09:51)
[2020-02-07] MEDS: INSULIN GLARGINE 100 UNITS/ML SUB-Q SCH (09:52)
--- NOTE | 2020-02-07 15:18 | Progress Note ---
Assessment and Plan Severe sepsis with shock. Left lung atelectasis. Left pleural effusion. Acute hypoxemic respiratory failure. Acute possibly on chronic encephalopathy. History of diabetes. Urinary tract infection. History of pulmonary embolism, diagnosed several months ago. Sacral decubitus ulcer. Dementia. Anemia that is normocytic. - will benefit from tracheostomy - continue care as below otherwise; - continue to wean supplemental oxygen for target O2 sat's > 92% acutely - VAP bundle addressed - continue lung protective strategies - continue bronchodilators with pulmonary hygiene per RT - wean per pulmonary driven protocols otherwise - continue accuchecks with glycemic control per SSI (While critically ill target blood glucose of 140-180 mg/dL; avoid hypoglycemia) - sedation prn for target RASS 0 to -1 - avoid nephrotoxins, renally dose all medications - continue to avoid benzodiazepine's, reduce the possibility of delirium - AB's per ID rec's - prn analgesia per CPOT score - Maintenance of sleep-wake cycle, avoid delirium - continue enteral nutritional support at goal rate as tolerated - G.I. & VTE prophylaxis with famotidine and heparin - PT/OT/ROM exercises - continue mobility protocols for pressure ulcer prophylaxis - Monitor hemodynamics closely - continue other care per attending / other consultants - discharge planning ongoing concurrently .... Re-evaluate in am & prn CONDITION: CRITICAL PROGNOSIS: GUARDED CODE STATUS: FULL CODE The high probability of a clinically significant, sudden or life-threatening deterioration of the [respiratory, cardiovascular & neurologic] system(s) required my full and direct attention, intervention and personal management. The aggregate critical care time was [32] minutes without overlap. Time includes spent on; [x] Data Review and interpretation [x] Patient assessment and monitoring of vital signs [x] Documentation [x] Medication orders and management Subjective Date of service: 02/07/20 Principal diagnosis: Septic Shock; S/P Cardiac Arrest; Ac. hypoxemic resp failure; UTI Interval history: Patient is seen today for: Severe sepsis with shock; S/P Cardiac Arrest; L. lung atelectasis / L. pleural effusion; Acute hypoxemic respiratory failure; Acute possibly on chronic encephalopathy; DM II; UTI; VTE Seen and examined at bedside; 24hour events reviewed; nursing and respiratory care staff consulted; no adverse overnight events reported to me; resting peacefully in bed; tolerating PSV trial; AMS is persistent Objective Vital Signs - 12hr 02/07/20 02/07/20 02/07/20 03:28 03:30 03:33 Temperature 98.7 F Pulse Rate 109 H 109 H Pulse Rate [ From Monitor] Respiratory 18 Rate Blood Pressure 128/66 128/66 O2 Sat by Pulse 100 100 Oximetry 02/07/20 02/07/20 02/07/20 03:45 04:00 04:15 Temperature Pulse Rate 107 H 106 H 114 H Pulse Rate [ 70 From Monitor] Respiratory 18 18 18 Rate Blood Pressure 119/63 117/63 129/68 O2 Sat by Pulse 100 100 100 Oximetry 02/07/20 02/07/20 02/07/20 04:30 04:45 05:00 Temperature Pulse Rate 101 H 115 H 114 H Pulse Rate [ From Monitor] Respiratory 18 16 17 Rate Blood Pressure 115/59 129/72 130/71 O2 Sat by Pulse 100 100 100 Oximetry 02/07/20 02/07/20 02/07/20 05:15 05:30 05:45 Temperature Pulse Rate 119 H 108 H 115 H Pulse Rate [ From Monitor] Respiratory 18 17 24 Rate Blood Pressure 139/73 123/66 123/66 O2 Sat by Pulse 100 100 100 Oximetry 02/07/20 02/07/20 02/07/20 06:00 06:15 06:30 Temperature Pulse Rate 109 H 103 H 106 H Pulse Rate [ From Monitor] Respiratory 21 21 19 Rate Blood Pressure 140/70 143/67 139/70 O2 Sat by Pulse 100 100 100 Oximetry 02/07/20 02/07/20 02/07/20 06:45 07:00 07:15 Temperature Pulse Rate 102 H 98 H 100 H Pulse Rate [ From Monitor] Respiratory 15 20 15 Rate Blood Pressure 139/70 134/70 139/70 O2 Sat by Pulse 100 100 100 Oximetry 02/07/20 02/07/20 02/07/20 07:30 07:45 07:53 Temperature Pulse Rate 100 H 97 H 94 H Pulse Rate [ From Monitor] Respiratory 20 19 Rate Blood Pressure 132/71 132/71 125/67 O2 Sat by Pulse 100 100 100 Oximetry 02/07/20 02/07/20 02/07/20 08:00 08:02 08:15 Temperature 97.6 F Pulse Rate 97 H 100 H Pulse Rate [ From Monitor] Respiratory 15 22 19 Rate Blood Pressure 145/74 145/74 125/67 O2 Sat by Pulse 100 100 100 Oximetry 02/07/20 02/07/20 02/07/20 08:30 08:45 08:50 Temperature Pulse Rate 99 H 97 H Pulse Rate [ 99 H From Monitor] Respiratory 19 18 23 Rate Blood Pressure 150/76 150/76 O2 Sat by Pulse 100 100 100 Oximetry 02/07/20 02/07/20 02/07/20 09:00 09:15 09:30 Temperature Pulse Rate 99 H 97 H 95 H Pulse Rate [ From Monitor] Respiratory 20 20 19 Rate Blood Pressure 142/77 142/77 142/72 O2 Sat by Pulse 100 100 100 Oximetry 02/07/20 02/07/20 02/07/20 09:45 10:00 10:15 Temperature Pulse Rate 94 H 90 95 H Pulse Rate [ From Monitor] Respiratory 17 20 19 Rate Blood Pressure 142/72 140/74 140/74 O2 Sat by Pulse 100 100 100 Oximetry 02/07/20 02/07/20 02/07/20 10:30 10:45 11:00 Temperature Pulse Rate 92 H 93 H 89 Pulse Rate [ From Monitor] Respiratory 20 20 20 Rate Blood Pressure 133/69 133/69 131/65 O2 Sat by Pulse 100 100 100 Oximetry 02/07/20 02/07/20 02/07/20 11:15 11:30 11:42 Temperature Pulse Rate 93 H 91 H 92 H Pulse Rate [ From Monitor] Respiratory 19 21 17 Rate Blood Pressure 131/65 139/69 139/69 O2 Sat by Pulse 100 100 100 Oximetry 02/07/20 02/07/20 02/07/20 11:45 12:00 12:15 Temperature 97.2 F L Pulse Rate 92 H 89 92 H Pulse Rate [ From Monitor] Respiratory 19 18 19 Rate Blood Pressure 139/69 138/66 142/69 O2 Sat by Pulse 100 100 100 Oximetry 02/07/20 02/07/20 02/07/20 12:30 12:45 13:00 Temperature Pulse Rate 88 92 H 89 Pulse Rate [ From Monitor] Respiratory 19 18 18 Rate Blood Pressure 140/65 142/69 144/69 O2 Sat by Pulse 100 100 100 Oximetry 02/07/20 02/07/20 02/07/20 13:16 13:30 13:45 Temperature Pulse Rate 93 H 94 H 94 H Pulse Rate [ From Monitor] Respiratory 18 18 18 Rate Blood Pressure 144/69 143/70 145/71 O2 Sat by Pulse 100 100 100 Oximetry 02/07/20 02/07/20 02/07/20 14:00 14:15 14:30 Temperature Pulse Rate 93 H 92 H 91 H Pulse Rate [ From Monitor] Respiratory 19 19 18 Rate Blood Pressure 143/70 140/68 140/71 O2 Sat by Pulse 100 100 100 Oximetry 02/07/20 02/07/20 14:45 15:00 Temperature Pulse Rate 92 H 90 Pulse Rate [ From Monitor] Respiratory 18 18 Rate Blood Pressure 142/71 147/73 O2 Sat by Pulse 100 100 Oximetry Constitutional: no acute distress, alert, other (elderly chronically ill looking female orally intubated to [facility] [place]) Eyes: non-icteric ENT: oropharynx moist, other (ETT 7.5 cm at 22 [address]) Neck: supple, no lymphadenopathy Effort: normal Ascultation: Bilateral: diminished breath sounds, rhonchi (scant) Percussion: Bilateral: not dull Cardiovascular: regular rate and rhythm, other (S1,S2) Gastrointestinal: normoactive bowel sounds, soft, non-tender, non-distended, other (PEG in place) Integumentary: decubitus ulcer Extremities: no cyanosis, pulses normal, no ischemia or petechiae, edema, other (bilateral upper extremity edema) Neurologic: pupils equal and round, other (awake and alert, not obeying commands) Psychiatric: other (Unable to assess secondary to mental status) CBC and BMP: 02/08/20 04:46 02/08/20 04:46 ABG, PT/INR, D-dimer: ABG ABG pH 7.551 (7.320-7.450) H 02/06/20 04:27 POC ABG pCO2 38.9 mmHg (32.0-48.0) 02/06/20 04:27 ABG pCO2 46.1 mm Hg 02/05/20 01:03 POC ABG pO2 157.2 mmHg (83-108) H 02/06/20 04:27 ABG pO2 50.7 mm Hg (80.0-90.0) L 02/05/20 01:03 POC ABG HCO3 33.3 02/06/20 04:27 ABG O2 Saturation 82.7 % (95.0-99.0) L 02/05/20 01:03 PT/INR, D-dimer PT 14.4 Sec. (12.2-14.9) 02/02/20 05:25 INR 1.11 (0.87-1.13) 02/02/20 05:25 Abnormal lab findings: Abnormal Labs 01/08/20 01/08/20 01/08/20 16:29 16:29 16:29 WBC 13.5 H RBC Hgb Hct MCHC RDW 15.5 H Plt Count Lymph % (Auto) Lymph # Lymph # (Auto) Seg Neutrophils % Seg Neuts % (Manual) 85.0 H Lymphocytes % (Manual) 11.0 L Seg Neutrophils # Seg Neutrophils # Man 11.5 H Nucleated RBC % Lymphocytes # (Manual) Monocytes # (Manual) PT INR Heparin Anti-Xa Level POC ABG pO2 ABG pH ABG Hemoglobin ABG Oxyhemoglobin ABG pO2 ABG HCO3 ABG O2 Saturation ABG Base Excess ABG Potassium ABG Glucose Oxyhemoglobin Sodium 161 H* Potassium Chloride 125.5 H Carbon Dioxide 20 L BUN 30 H Creatinine Glucose 115 H POC Glucose Lactic Acid 2.20 H* Calcium 7.9 L AST 48 H Phosphorus Total Protein Albumin 2.5 L C-Reactive Protein Arterial Blood Glucose Arterial Blood Ionized Calcium Urine WBC (Auto) 01/08/20 01/08/20 01/08/20 19:02 23:30 Unknown WBC RBC Hgb Hct MCHC RDW Plt Count Lymph % (Auto) Lymph # Lymph # (Auto) Seg Neutrophils % Seg Neuts % (Manual) Lymphocytes % (Manual) Seg Neutrophils # Seg Neutrophils # Man Nucleated RBC % Lymphocytes # (Manual) Monocytes # (Manual) PT INR Heparin Anti-Xa Level POC ABG pO2 ABG pH ABG Hemoglobin ABG Oxyhemoglobin ABG pO2 ABG HCO3 ABG O2 Saturation ABG Base Excess ABG Potassium ABG Glucose Oxyhemoglobin Sodium Potassium Chloride Carbon Dioxide BUN Creatinine Glucose POC Glucose Lactic Acid 2.10 H* 2.50 H* Calcium AST Phosphorus Total Protein Albumin C-Reactive Protein Arterial Blood Glucose Arterial Blood Ionized Calcium Urine WBC (Auto) 11.0 H 01/09/20 01/09/20 01/09/20 00:19 00:54 05:52 WBC 13.5 H RBC 3.02 L Hgb 9.0 L D Hct 27.4 L D MCHC RDW Plt Count Lymph % (Auto) 9.1 L Lymph # Lymph # (Auto) Seg Neutrophils % 87.6 H Seg Neuts % (Manual) Lymphocytes % (Manual) Seg Neutrophils # 11.8 H Seg Neutrophils # Man Nucleated RBC % Lymphocytes # (Manual) Monocytes # (Manual) PT INR Heparin Anti-Xa Level POC ABG pO2 ABG pH ABG Hemoglobin ABG Oxyhemoglobin ABG pO2 ABG HCO3 ABG O2 Saturation ABG Base Excess ABG Potassium ABG Glucose Oxyhemoglobin Sodium Potassium Chloride Carbon Dioxide BUN Creatinine Glucose POC Glucose 118 H 116 H Lactic Acid Calcium AST Phosphorus Total Protein Albumin C-Reactive Protein Arterial Blood Glucose Arterial Blood Ionized Calcium Urine WBC (Auto) 01/09/20 01/09/20 01/09/20 05:52 05:52 13:03 WBC RBC Hgb Hct MCHC RDW Plt Count Lymph % (Auto) Lymph # Lymph # (Auto) Seg Neutrophils % Seg Neuts % (Manual) Lymphocytes % (Manual) Seg Neutrophils # Seg Neutrophils # Man Nucleated RBC % Lymphocytes # (Manual) Monocytes # (Manual) PT 17.1 H INR 1.36 H Heparin Anti-Xa Level POC ABG pO2 ABG pH ABG Hemoglobin ABG Oxyhemoglobin ABG pO2 ABG HCO3 ABG O2 Saturation ABG Base Excess ABG Potassium ABG Glucose Oxyhemoglobin Sodium 162 H* Potassium 3.0 L D Chloride 128.3 H Carbon Dioxide BUN 23 H Creatinine Glucose POC Glucose 55 L Lactic Acid Calcium 7.6 L AST Phosphorus Total Protein Albumin C-Reactive Protein Arterial Blood Glucose Arterial Blood Ionized Calcium Urine WBC (Auto) 01/09/20 01/09/20 01/09/20 21:22 21:50 22:28 WBC RBC Hgb Hct MCHC RDW Plt Count Lymph % (Auto) Lymph # Lymph # (Auto) Seg Neutrophils % Seg Neuts % (Manual) Lymphocytes % (Manual) Seg Neutrophils # Seg Neutrophils # Man Nucleated RBC % Lymphocytes # (Manual) Monocytes # (Manual) PT INR Heparin Anti-Xa Level POC ABG pO2 ABG pH ABG Hemoglobin ABG Oxyhemoglobin ABG pO2 ABG HCO3 ABG O2 Saturation ABG Base Excess ABG Potassium ABG Glucose Oxyhemoglobin Sodium 159 H Potassium 5.1 H D Chloride 128.5 H Carbon Dioxide 16 L BUN 23 H Creatinine Glucose 51 L POC Glucose 52 L 106 H Lactic Acid Calcium 8.2 L AST Phosphorus Total Protein Albumin C-Reactive Protein Arterial Blood Glucose Arterial Blood Ionized Calcium Urine WBC (Auto) 01/10/20 01/10/20 01/10/20 05:23 09:11 10:10 WBC 13.4 H RBC Hgb Hct MCHC RDW Plt Count Lymph % (Auto) 7.2 L Lymph # 1.0 L Lymph # (Auto) Seg Neutrophils % 90.0 H Seg Neuts % (Manual) Lymphocytes % (Manual) Seg Neutrophils # 12.0 H Seg Neutrophils # Man Nucleated RBC % Lymphocytes # (Manual) Monocytes # (Manual) PT INR Heparin Anti-Xa Level POC ABG pO2 ABG pH ABG Hemoglobin ABG Oxyhemoglobin ABG pO2 ABG HCO3 ABG O2 Saturation ABG Base Excess ABG Potassium ABG Glucose Oxyhemoglobin Sodium 155 H Potassium Chloride 122.8 H Carbon Dioxide 21 L BUN 19 H Creatinine Glucose POC Glucose 120 H Lactic Acid Calcium AST Phosphorus Total Protein Albumin C-Reactive Protein Arterial Blood Glucose Arterial Blood Ionized Calcium Urine WBC (Auto) 01/10/20 01/10/20 01/10/20 11:47 11:57 17:09 WBC RBC Hgb Hct MCHC RDW Plt Count Lymph % (Auto) Lymph # Lymph # (Auto) Seg Neutrophils % Seg Neuts % (Manual) Lymphocytes % (Manual) Seg Neutrophils # Seg Neutrophils # Man Nucleated RBC % Lymphocytes # (Manual) Monocytes # (Manual) PT INR Heparin Anti-Xa Level POC ABG pO2 ABG pH ABG Hemoglobin ABG Oxyhemoglobin ABG pO2 ABG HCO3 ABG O2 Saturation ABG Base Excess ABG Potassium ABG Glucose Oxyhemoglobin Sodium 153 H Potassium Chloride 118.3 H Carbon Dioxide 20 L BUN 19 H Creatinine Glucose 113 H POC Glucose 142 H 125 H Lactic Acid Calcium AST Phosphorus Total Protein Albumin C-Reactive Protein Arterial Blood Glucose Arterial Blood Ionized Calcium Urine WBC (Auto) 01/10/20 01/10/20 01/11/20 20:27 22:00 00:45 WBC RBC Hgb Hct MCHC RDW Plt Count Lymph % (Auto) Lymph # Lymph # (Auto) Seg Neutrophils % Seg Neuts % (Manual) Lymphocytes % (Manual) Seg Neutrophils # Seg Neutrophils # Man Nucleated RBC % Lymphocytes # (Manual) Monocytes # (Manual) PT INR Heparin Anti-Xa Level POC ABG pO2 ABG pH ABG Hemoglobin ABG Oxyhemoglobin ABG pO2 ABG HCO3 ABG O2 Saturation ABG Base Excess ABG Potassium ABG Glucose Oxyhemoglobin Sodium 153 H 154 H Potassium 3.3 L 3.2 L Chloride 117.0 H 118.9 H Carbon Dioxide 20 L BUN Creatinine Glucose POC Glucose 136 H Lactic Acid Calcium 8.3 L 8.0 L AST Phosphorus Total Protein Albumin C-Reactive Protein Arterial Blood Glucose Arterial Blood Ionized Calcium Urine WBC (Auto) 01/11/20 01/11/20 01/11/20 07:06 08:03 11:54 WBC RBC Hgb Hct MCHC RDW Plt Count Lymph % (Auto) Lymph # Lymph # (Auto) Seg Neutrophils % Seg Neuts % (Manual) Lymphocytes % (Manual) Seg Neutrophils # Seg Neutrophils # Man Nucleated RBC % Lymphocytes # (Manual) Monocytes # (Manual) PT INR Heparin Anti-Xa Level POC ABG pO2 ABG pH ABG Hemoglobin ABG Oxyhemoglobin ABG pO2 ABG HCO3 ABG O2 Saturation ABG Base Excess ABG Potassium ABG Glucose Oxyhemoglobin Sodium 151 H Potassium Chloride 118.7 H Carbon Dioxide 21 L BUN Creatinine Glucose 107 H POC Glucose 118 H 164 H Lactic Acid Calcium 8.3 L AST Phosphorus Total Protein Albumin C-Reactive Protein Arterial Blood Glucose Arterial Blood Ionized Calcium Urine WBC (Auto) 01/11/20 01/12/20 01/12/20 16:28 00:19 05:40 WBC RBC Hgb Hct MCHC RDW Plt Count Lymph % (Auto) Lymph # Lymph # (Auto) Seg Neutrophils % Seg Neuts % (Manual) Lymphocytes % (Manual) Seg Neutrophils # Seg Neutrophils # Man Nucleated RBC % Lymphocytes # (Manual) Monocytes # (Manual) PT INR Heparin Anti-Xa Level POC ABG pO2 ABG pH ABG Hemoglobin ABG Oxyhemoglobin ABG pO2 ABG HCO3 ABG O2 Saturation ABG Base Excess ABG Potassium ABG Glucose Oxyhemoglobin Sodium 148 H Potassium Chloride 111.6 H Carbon Dioxide 19 L BUN Creatinine Glucose 128 H POC Glucose 132 H 179 H Lactic Acid Calcium 8.2 L AST Phosphorus Total Protein Albumin C-Reactive Protein Arterial Blood Glucose Arterial Blood Ionized Calcium Urine WBC (Auto) 01/12/20 01/12/20 01/12/20 06:17 11:37 17:21 WBC RBC Hgb Hct MCHC RDW Plt Count Lymph % (Auto) Lymph # Lymph # (Auto) Seg Neutrophils % Seg Neuts % (Manual) Lymphocytes % (Manual) Seg Neutrophils # Seg Neutrophils # Man Nucleated RBC % Lymphocytes # (Manual) Monocytes # (Manual) PT INR Heparin Anti-Xa Level POC ABG pO2 ABG pH ABG Hemoglobin ABG Oxyhemoglobin ABG pO2 ABG HCO3 ABG O2 Saturation ABG Base Excess ABG Potassium ABG Glucose Oxyhemoglobin Sodium Potassium Chloride Carbon Dioxide BUN Creatinine Glucose POC Glucose 140 H 142 H 133 H Lactic Acid Calcium AST Phosphorus Total Protein Albumin C-Reactive Protein Arterial Blood Glucose Arterial Blood Ionized Calcium Urine WBC (Auto) 01/12/20 01/13/20 01/13/20 23:14 05:26 07:00 WBC RBC Hgb Hct MCHC RDW Plt Count Lymph % (Auto) Lymph # Lymph # (Auto) Seg Neutrophils % Seg Neuts % (Manual) Lymphocytes % (Manual) Seg Neutrophils # Seg Neutrophils # Man Nucleated RBC % Lymphocytes # (Manual) Monocytes # (Manual) PT INR Heparin Anti-Xa Level POC ABG pO2 ABG pH ABG Hemoglobin ABG Oxyhemoglobin ABG pO2 ABG HCO3 ABG O2 Saturation ABG Base Excess ABG Potassium ABG Glucose Oxyhemoglobin Sodium Potassium Chloride 110.0 H Carbon Dioxide BUN Creatinine Glucose 139 H POC Glucose 135 H 162 H Lactic Acid Calcium 7.8 L AST Phosphorus Total Protein Albumin C-Reactive Protein Arterial Blood Glucose Arterial Blood Ionized Calcium Urine WBC (Auto) 01/13/20 01/13/20 01/13/20 12:14 17:52 21:40 WBC RBC Hgb Hct MCHC RDW Plt Count Lymph % (Auto) Lymph # Lymph # (Auto) Seg Neutrophils % Seg Neuts % (Manual) Lymphocytes % (Manual) Seg Neutrophils # Seg Neutrophils # Man Nucleated RBC % Lymphocytes # (Manual) Monocytes # (Manual) PT INR Heparin Anti-Xa Level POC ABG pO2 ABG pH ABG Hemoglobin ABG Oxyhemoglobin ABG pO2 ABG HCO3 ABG O2 Saturation ABG Base Excess ABG Potassium ABG Glucose Oxyhemoglobin Sodium Potassium Chloride Carbon Dioxide BUN Creatinine Glucose POC Glucose 205 H 172 H 186 H Lactic Acid Calcium AST Phosphorus Total Protein Albumin C-Reactive Protein Arterial Blood Glucose Arterial Blood Ionized Calcium Urine WBC (Auto) 01/14/20 01/14/20 01/14/20 04:28 11:01 11:01 WBC 14.8 H RBC 3.20 L Hgb 9.5 L Hct 28.0 L MCHC RDW Plt Count Lymph % (Auto) Lymph # Lymph # (Auto) Seg Neutrophils % Seg Neuts % (Manual) Lymphocytes % (Manual) Seg Neutrophils # Seg Neutrophils # Man Nucleated RBC % Lymphocytes # (Manual) Monocytes # (Manual) PT INR Heparin Anti-Xa Level POC ABG pO2 ABG pH ABG Hemoglobin ABG Oxyhemoglobin ABG pO2 ABG HCO3 ABG O2 Saturation ABG Base Excess ABG Potassium ABG Glucose Oxyhemoglobin Sodium Potassium 3.2 L Chloride Carbon Dioxide BUN Creatinine 0.4 L Glucose POC Glucose 115 H Lactic Acid Calcium 8.0 L AST Phosphorus Total Protein Albumin C-Reactive Protein Arterial Blood Glucose Arterial Blood Ionized Calcium Urine WBC (Auto) 01/14/20 01/14/20 01/14/20 11:01 16:33 22:32 WBC RBC Hgb Hct MCHC RDW Plt Count Lymph % (Auto) Lymph # Lymph # (Auto) Seg Neutrophils % Seg Neuts % (Manual) Lymphocytes % (Manual) Seg Neutrophils # Seg Neutrophils # Man Nucleated RBC % Lymphocytes # (Manual) Monocytes # (Manual) PT 15.8 H INR 1.23 H Heparin Anti-Xa Level POC ABG pO2 ABG pH ABG Hemoglobin ABG Oxyhemoglobin ABG pO2 ABG HCO3 ABG O2 Saturation ABG Base Excess ABG Potassium ABG Glucose Oxyhemoglobin Sodium Potassium Chloride Carbon Dioxide BUN Creatinine Glucose POC Glucose 58 L 188 H Lactic Acid Calcium AST Phosphorus Total Protein Albumin C-Reactive Protein Arterial Blood Glucose Arterial Blood Ionized Calcium Urine WBC (Auto) 01/15/20 01/15/20 01/15/20 05:35 06:19 17:17 WBC RBC Hgb Hct MCHC RDW Plt Count Lymph % (Auto) Lymph # Lymph # (Auto) Seg Neutrophils % Seg Neuts % (Manual) Lymphocytes % (Manual) Seg Neutrophils # Seg Neutrophils # Man Nucleated RBC % Lymphocytes # (Manual) Monocytes # (Manual) PT INR Heparin Anti-Xa Level POC ABG pO2 ABG pH ABG Hemoglobin ABG Oxyhemoglobin ABG pO2 ABG HCO3 ABG O2 Saturation ABG Base Excess ABG Potassium ABG Glucose Oxyhemoglobin Sodium Potassium Chloride Carbon Dioxide BUN Creatinine 0.5 L Glucose 104 H POC Glucose 106 H 183 H Lactic Acid Calcium 7.8 L AST Phosphorus Total Protein Albumin C-Reactive Protein Arterial Blood Glucose Arterial Blood Ionized Calcium Urine WBC (Auto) 01/15/20 01/16/20 01/16/20 22:29 05:35 05:59 WBC 14.7 H RBC 3.04 L Hgb 9.0 L Hct 27.0 L MCHC RDW Plt Count Lymph % (Auto) 9.1 L Lymph # Lymph # (Auto) Seg Neutrophils % 87.3 H Seg Neuts % (Manual) Lymphocytes % (Manual) Seg Neutrophils # 12.9 H Seg Neutrophils # Man Nucleated RBC % Lymphocytes # (Manual) Monocytes # (Manual) PT INR Heparin Anti-Xa Level POC ABG pO2 ABG pH ABG Hemoglobin ABG Oxyhemoglobin ABG pO2 ABG HCO3 ABG O2 Saturation ABG Base Excess ABG Potassium ABG Glucose Oxyhemoglobin Sodium Potassium Chloride Carbon Dioxide BUN Creatinine Glucose POC Glucose 228 H 130 H Lactic Acid Calcium AST Phosphorus Total Protein Albumin C-Reactive Protein Arterial Blood Glucose Arterial Blood Ionized Calcium Urine WBC (Auto) 01/16/20 01/16/20 01/16/20 09:52 12:49 17:30 WBC RBC Hgb Hct MCHC RDW Plt Count Lymph % (Auto) Lymph # Lymph # (Auto) Seg Neutrophils % Seg Neuts % (Manual) Lymphocytes % (Manual) Seg Neutrophils # Seg Neutrophils # Man Nucleated RBC % Lymphocytes # (Manual) Monocytes # (Manual) PT INR Heparin Anti-Xa Level POC ABG pO2 ABG pH ABG Hemoglobin ABG Oxyhemoglobin ABG pO2 ABG HCO3 ABG O2 Saturation ABG Base Excess ABG Potassium ABG Glucose Oxyhemoglobin Sodium Potassium Chloride Carbon Dioxide BUN Creatinine Glucose POC Glucose 122 H 142 H 192 H Lactic Acid Calcium AST Phosphorus Total Protein Albumin C-Reactive Protein Arterial Blood Glucose Arterial Blood Ionized Calcium Urine WBC (Auto) 01/16/20 01/17/20 01/17/20 23:01 08:36 08:36 WBC 12.7 H RBC 2.98 L Hgb 8.9 L Hct 26.4 L MCHC RDW Plt Count Lymph % (Auto) 8.8 L Lymph # 1.1 L Lymph # (Auto) Seg Neutrophils % 86.7 H Seg Neuts % (Manual) Lymphocytes % (Manual) Seg Neutrophils # 11.0 H Seg Neutrophils # Man Nucleated RBC % Lymphocytes # (Manual) Monocytes # (Manual) PT INR Heparin Anti-Xa Level POC ABG pO2 ABG pH ABG Hemoglobin ABG Oxyhemoglobin ABG pO2 ABG HCO3 ABG O2 Saturation ABG Base Excess ABG Potassium ABG Glucose Oxyhemoglobin Sodium Potassium 3.3 L D Chloride Carbon Dioxide BUN Creatinine 0.4 L Glucose POC Glucose 141 H Lactic Acid Calcium 8.1 L AST Phosphorus Total Protein 4.6 L Albumin 1.6 L C-Reactive Protein Arterial Blood Glucose Arterial Blood Ionized Calcium Urine WBC (Auto) 01/17/20 01/17/20 01/18/20 11:43 23:56 06:27 WBC RBC Hgb Hct MCHC RDW Plt Count Lymph % (Auto) Lymph # Lymph # (Auto) Seg Neutrophils % Seg Neuts % (Manual) Lymphocytes % (Manual) Seg Neutrophils # Seg Neutrophils # Man Nucleated RBC % Lymphocytes # (Manual) Monocytes # (Manual) PT INR Heparin Anti-Xa Level POC ABG pO2 ABG pH ABG Hemoglobin ABG Oxyhemoglobin ABG pO2 ABG HCO3 ABG O2 Saturation ABG Base Excess ABG Potassium ABG Glucose Oxyhemoglobin Sodium Potassium Chloride Carbon Dioxide BUN Creatinine Glucose POC Glucose 137 H 215 H 122 H Lactic Acid Calcium AST Phosphorus Total Protein Albumin C-Reactive Protein Arterial Blood Glucose Arterial Blood Ionized Calcium Urine WBC (Auto) 01/18/20 01/18/20 01/18/20 07:31 07:31 11:39 WBC 12.1 H RBC 3.23 L Hgb 9.7 L Hct 28.7 L MCHC RDW Plt Count Lymph % (Auto) 9.2 L Lymph # 1.1 L Lymph # (Auto) Seg Neutrophils % 85.0 H Seg Neuts % (Manual) Lymphocytes % (Manual) Seg Neutrophils # 10.3 H Seg Neutrophils # Man Nucleated RBC % Lymphocytes # (Manual) Monocytes # (Manual) PT INR Heparin Anti-Xa Level POC ABG pO2 ABG pH ABG Hemoglobin ABG Oxyhemoglobin ABG pO2 ABG HCO3 ABG O2 Saturation ABG Base Excess ABG Potassium ABG Glucose Oxyhemoglobin Sodium Potassium Chloride Carbon Dioxide BUN Creatinine 0.4 L Glucose 108 H POC Glucose 172 H Lactic Acid Calcium AST Phosphorus Total Protein 5.3 L Albumin 2.1 L C-Reactive Protein Arterial Blood Glucose Arterial Blood Ionized Calcium Urine WBC (Auto) 01/18/20 01/19/20 01/19/20 18:22 00:15 11:30 WBC RBC Hgb Hct MCHC RDW Plt Count Lymph % (Auto) Lymph # Lymph # (Auto) Seg Neutrophils % Seg Neuts % (Manual) Lymphocytes % (Manual) Seg Neutrophils # Seg Neutrophils # Man Nucleated RBC % Lymphocytes # (Manual) Monocytes # (Manual) PT INR Heparin Anti-Xa Level POC ABG pO2 ABG pH ABG Hemoglobin ABG Oxyhemoglobin ABG pO2 ABG HCO3 ABG O2 Saturation ABG Base Excess ABG Potassium ABG Glucose Oxyhemoglobin Sodium Potassium Chloride Carbon Dioxide BUN Creatinine Glucose POC Glucose 119 H 135 H 163 H Lactic Acid Calcium AST Phosphorus Total Protein Albumin C-Reactive Protein Arterial Blood Glucose Arterial Blood Ionized Calcium Urine WBC (Auto) 01/19/20 01/19/20 01/20/20 17:44 22:59 03:44 WBC 11.1 H RBC 2.77 L Hgb 8.4 L Hct 25.0 L MCHC RDW Plt Count Lymph % (Auto) Lymph # Lymph # (Auto) Seg Neutrophils % 74.6 H Seg Neuts % (Manual) Lymphocytes % (Manual) Seg Neutrophils # 8.3 H Seg Neutrophils # Man Nucleated RBC % Lymphocytes # (Manual) Monocytes # (Manual) PT INR Heparin Anti-Xa Level POC ABG pO2 ABG pH ABG Hemoglobin ABG Oxyhemoglobin ABG pO2 ABG HCO3 ABG O2 Saturation ABG Base Excess ABG Potassium ABG Glucose Oxyhemoglobin Sodium Potassium Chloride Carbon Dioxide BUN Creatinine Glucose POC Glucose 161 H 182 H Lactic Acid Calcium AST Phosphorus Total Protein Albumin C-Reactive Protein Arterial Blood Glucose Arterial Blood Ionized Calcium Urine WBC (Auto) 01/20/20 01/21/20 01/21/20 03:44 00:07 05:51 WBC RBC 2.84 L Hgb 8.6 L Hct 25.5 L MCHC RDW Plt Count 463 H Lymph % (Auto) Lymph # Lymph # (Auto) Seg Neutrophils % 76.9 H Seg Neuts % (Manual) Lymphocytes % (Manual) Seg Neutrophils # 7.8 H Seg Neutrophils # Man Nucleated RBC % Lymphocytes # (Manual) Monocytes # (Manual) PT INR Heparin Anti-Xa Level POC ABG pO2 ABG pH ABG Hemoglobin ABG Oxyhemoglobin ABG pO2 ABG HCO3 ABG O2 Saturation ABG Base Excess ABG Potassium ABG Glucose Oxyhemoglobin Sodium Potassium Chloride Carbon Dioxide BUN Creatinine 0.4 L Glucose POC Glucose 68 L Lactic Acid Calcium 7.9 L AST Phosphorus Total Protein 4.7 L Albumin 1.9 L C-Reactive Protein Arterial Blood Glucose Arterial Blood Ionized Calcium Urine WBC (Auto) 01/21/20 01/21/20 01/21/20 05:51 05:58 11:25 WBC RBC Hgb Hct MCHC RDW Plt Count Lymph % (Auto) Lymph # Lymph # (Auto) Seg Neutrophils % Seg Neuts % (Manual) Lymphocytes % (Manual) Seg Neutrophils # Seg Neutrophils # Man Nucleated RBC % Lymphocytes # (Manual) Monocytes # (Manual) PT INR Heparin Anti-Xa Level POC ABG pO2 ABG pH ABG Hemoglobin ABG Oxyhemoglobin ABG pO2 ABG HCO3 ABG O2 Saturation ABG Base Excess ABG Potassium ABG Glucose Oxyhemoglobin Sodium Potassium Chloride Carbon Dioxide 20 L BUN Creatinine 0.5 L Glucose 130 H POC Glucose 185 H 163 H Lactic Acid Calcium 7.6 L AST Phosphorus Total Protein 5.0 L Albumin 1.9 L C-Reactive Protein Arterial Blood Glucose Arterial Blood Ionized Calcium Urine WBC (Auto) 01/21/20 01/21/20 01/22/20 16:22 21:17 01:28 WBC RBC 2.60 L Hgb 8.0 L Hct 23.3 L MCHC RDW Plt Count Lymph % (Auto) Lymph # Lymph # (Auto) Seg Neutrophils % 74.8 H Seg Neuts % (Manual) Lymphocytes % (Manual) Seg Neutrophils # Seg Neutrophils # Man Nucleated RBC % Lymphocytes # (Manual) Monocytes # (Manual) PT INR Heparin Anti-Xa Level POC ABG pO2 ABG pH ABG Hemoglobin ABG Oxyhemoglobin ABG pO2 ABG HCO3 ABG O2 Saturation ABG Base Excess ABG Potassium ABG Glucose Oxyhemoglobin Sodium Potassium Chloride Carbon Dioxide BUN Creatinine Glucose POC Glucose 177 H 67 L Lactic Acid Calcium AST Phosphorus Total Protein Albumin C-Reactive Protein Arterial Blood Glucose Arterial Blood Ionized Calcium Urine WBC (Auto) 01/22/20 01/22/20 01/22/20 01:28 01:28 12:06 WBC RBC Hgb Hct MCHC RDW Plt Count Lymph % (Auto) Lymph # Lymph # (Auto) Seg Neutrophils % Seg Neuts % (Manual) Lymphocytes % (Manual) Seg Neutrophils # Seg Neutrophils # Man Nucleated RBC % Lymphocytes # (Manual) Monocytes # (Manual) PT INR Heparin Anti-Xa Level POC ABG pO2 ABG pH ABG Hemoglobin ABG Oxyhemoglobin ABG pO2 ABG HCO3 ABG O2 Saturation ABG Base Excess ABG Potassium ABG Glucose Oxyhemoglobin Sodium Potassium Chloride 107.6 H Carbon Dioxide BUN Creatinine 0.4 L Glucose 152 H POC Glucose 203 H 140 H Lactic Acid Calcium 7.5 L AST Phosphorus Total Protein 4.0 L Albumin 2.0 L C-Reactive Protein Arterial Blood Glucose Arterial Blood Ionized Calcium Urine WBC (Auto) 01/22/20 01/22/20 01/23/20 16:24 22:55 06:10 WBC RBC 2.68 L Hgb 8.6 L Hct 24.1 L MCHC 36 H RDW Plt Count Lymph % (Auto) Lymph # Lymph # (Auto) Seg Neutrophils % Seg Neuts % (Manual) 71.0 H Lymphocytes % (Manual) Seg Neutrophils # Seg Neutrophils # Man Nucleated RBC % Lymphocytes # (Manual) Monocytes # (Manual) PT INR Heparin Anti-Xa Level POC ABG pO2 ABG pH ABG Hemoglobin ABG Oxyhemoglobin ABG pO2 ABG HCO3 ABG O2 Saturation ABG Base Excess ABG Potassium ABG Glucose Oxyhemoglobin Sodium Potassium Chloride Carbon Dioxide BUN Creatinine Glucose POC Glucose 205 H 196 H Lactic Acid Calcium AST Phosphorus Total Protein Albumin C-Reactive Protein Arterial Blood Glucose Arterial Blood Ionized Calcium Urine WBC (Auto) 01/23/20 01/23/20 01/23/20 06:10 07:35 11:59 WBC RBC Hgb Hct MCHC RDW Plt Count Lymph % (Auto) Lymph # Lymph # (Auto) Seg Neutrophils % Seg Neuts % (Manual) Lymphocytes % (Manual) Seg Neutrophils # Seg Neutrophils # Man Nucleated RBC % Lymphocytes # (Manual) Monocytes # (Manual) PT INR Heparin Anti-Xa Level POC ABG pO2 ABG pH ABG Hemoglobin ABG Oxyhemoglobin ABG pO2 ABG HCO3 ABG O2 Saturation ABG Base Excess ABG Potassium ABG Glucose Oxyhemoglobin Sodium Potassium Chloride 108.8 H Carbon Dioxide BUN Creatinine 0.4 L Glucose 105 H POC Glucose 111 H 123 H Lactic Acid Calcium 8.0 L AST Phosphorus Total Protein 4.9 L D Albumin 2.0 L C-Reactive Protein Arterial Blood Glucose Arterial Blood Ionized Calcium Urine WBC (Auto) 01/23/20 01/24/20 01/24/20 22:45 11:24 16:41 WBC RBC Hgb Hct MCHC RDW Plt Count Lymph % (Auto) Lymph # Lymph # (Auto) Seg Neutrophils % Seg Neuts % (Manual) Lymphocytes % (Manual) Seg Neutrophils # Seg Neutrophils # Man Nucleated RBC % Lymphocytes # (Manual) Monocytes # (Manual) PT INR Heparin Anti-Xa Level POC ABG pO2 ABG pH ABG Hemoglobin ABG Oxyhemoglobin ABG pO2 ABG HCO3 ABG O2 Saturation ABG Base Excess ABG Potassium ABG Glucose Oxyhemoglobin Sodium Potassium Chloride Carbon Dioxide BUN Creatinine Glucose POC Glucose 180 H 182 H 177 H Lactic Acid Calcium AST Phosphorus Total Protein Albumin C-Reactive Protein Arterial Blood Glucose Arterial Blood Ionized Calcium Urine WBC (Auto) 01/24/20 01/25/20 01/25/20 23:11 07:12 11:35 WBC RBC Hgb Hct MCHC RDW Plt Count Lymph % (Auto) Lymph # Lymph # (Auto) Seg Neutrophils % Seg Neuts % (Manual) Lymphocytes % (Manual) Seg Neutrophils # Seg Neutrophils # Man Nucleated RBC % Lymphocytes # (Manual) Monocytes # (Manual) PT INR Heparin Anti-Xa Level POC ABG pO2 ABG pH ABG Hemoglobin ABG Oxyhemoglobin ABG pO2 ABG HCO3 ABG O2 Saturation ABG Base Excess ABG Potassium ABG Glucose Oxyhemoglobin Sodium Potassium Chloride Carbon Dioxide BUN Creatinine Glucose POC Glucose 142 H 135 H 142 H Lactic Acid Calcium AST Phosphorus Total Protein Albumin C-Reactive Protein Arterial Blood Glucose Arterial Blood Ionized Calcium Urine WBC (Auto) 01/25/20 01/26/20 01/26/20 16:33 00:04 11:35 WBC RBC Hgb Hct MCHC RDW Plt Count Lymph % (Auto) Lymph # Lymph # (Auto) Seg Neutrophils % Seg Neuts % (Manual) Lymphocytes % (Manual) Seg Neutrophils # Seg Neutrophils # Man Nucleated RBC % Lymphocytes # (Manual) Monocytes # (Manual) PT INR Heparin Anti-Xa Level POC ABG pO2 ABG pH ABG Hemoglobin ABG Oxyhemoglobin ABG pO2 ABG HCO3 ABG O2 Saturation ABG Base Excess ABG Potassium ABG Glucose Oxyhemoglobin Sodium Potassium Chloride Carbon Dioxide BUN Creatinine Glucose POC Glucose 247 H 233 H 200 H Lactic Acid Calcium AST Phosphorus Total Protein Albumin C-Reactive Protein Arterial Blood Glucose Arterial Blood Ionized Calcium Urine WBC (Auto) 01/26/20 01/26/20 01/26/20 16:30 16:30 17:19 WBC RBC Hgb 7.4 L Hct 22.0 L MCHC RDW Plt Count Lymph % (Auto) Lymph # Lymph # (Auto) Seg Neutrophils % Seg Neuts % (Manual) Lymphocytes % (Manual) Seg Neutrophils # Seg Neutrophils # Man Nucleated RBC % Lymphocytes # (Manual) Monocytes # (Manual) PT 18.4 H INR 1.50 H Heparin Anti-Xa Level POC ABG pO2 ABG pH ABG Hemoglobin ABG Oxyhemoglobin ABG pO2 ABG HCO3 ABG O2 Saturation ABG Base Excess ABG Potassium ABG Glucose Oxyhemoglobin Sodium Potassium Chloride Carbon Dioxide BUN Creatinine Glucose POC Glucose 67 L Lactic Acid Calcium AST Phosphorus Total Protein Albumin C-Reactive Protein Arterial Blood Glucose Arterial Blood Ionized Calcium Urine WBC (Auto) 01/26/20 01/26/20 01/27/20 20:24 21:32 00:16 WBC RBC Hgb Hct MCHC RDW Plt Count Lymph % (Auto) Lymph # Lymph # (Auto) Seg Neutrophils % Seg Neuts % (Manual) Lymphocytes % (Manual) Seg Neutrophils # Seg Neutrophils # Man Nucleated RBC % Lymphocytes # (Manual) Monocytes # (Manual) PT INR Heparin Anti-Xa Level POC ABG pO2 51.8 L ABG pH ABG Hemoglobin 8.5 L ABG Oxyhemoglobin 84.7 L ABG pO2 ABG HCO3 ABG O2 Saturation ABG Base Excess ABG Potassium ABG Glucose Oxyhemoglobin Sodium Potassium Chloride Carbon Dioxide BUN Creatinine Glucose POC Glucose 162 H 141 H Lactic Acid Calcium AST Phosphorus Total Protein Albumin C-Reactive Protein Arterial Blood Glucose Arterial Blood Ionized Calcium Urine WBC (Auto) 01/27/20 01/27/20 01/27/20 01:42 02:18 05:57 WBC RBC Hgb Hct MCHC RDW Plt Count Lymph % (Auto) Lymph # Lymph # (Auto) Seg Neutrophils % Seg Neuts % (Manual) Lymphocytes % (Manual) Seg Neutrophils # Seg Neutrophils # Man Nucleated RBC % Lymphocytes # (Manual) Monocytes # (Manual) PT INR Heparin Anti-Xa Level 2.00 H POC ABG pO2 ABG pH ABG Hemoglobin ABG Oxyhemoglobin ABG pO2 ABG HCO3 ABG O2 Saturation ABG Base Excess ABG Potassium ABG Glucose Oxyhemoglobin Sodium Potassium Chloride Carbon Dioxide BUN Creatinine Glucose POC Glucose 183 H 124 H Lactic Acid Calcium AST Phosphorus Total Protein Albumin C-Reactive Protein Arterial Blood Glucose Arterial Blood Ionized Calcium Urine WBC (Auto) 01/27/20 01/27/20 01/27/20 06:30 06:30 12:23 WBC RBC 2.75 L Hgb 8.4 L Hct 24.9 L MCHC RDW 16.0 H Plt Count 474 H Lymph % (Auto) 12.7 L Lymph # Lymph # (Auto) Seg Neutrophils % 83.2 H Seg Neuts % (Manual) Lymphocytes % (Manual) Seg Neutrophils # 8.4 H Seg Neutrophils # Man Nucleated RBC % Lymphocytes # (Manual) Monocytes # (Manual) PT INR Heparin Anti-Xa Level POC ABG pO2 ABG pH ABG Hemoglobin ABG Oxyhemoglobin ABG pO2 ABG HCO3 ABG O2 Saturation ABG Base Excess ABG Potassium ABG Glucose Oxyhemoglobin Sodium Potassium 3.5 L Chloride 110.2 H Carbon Dioxide BUN Creatinine 0.4 L Glucose 101 H POC Glucose 126 H Lactic Acid Calcium 7.8 L AST Phosphorus Total Protein Albumin C-Reactive Protein Arterial Blood Glucose Arterial Blood Ionized Calcium Urine WBC (Auto) 01/27/20 01/27/20 01/28/20 17:31 23:40 00:00 WBC RBC Hgb Hct MCHC RDW Plt Count Lymph % (Auto) Lymph # Lymph # (Auto) Seg Neutrophils % Seg Neuts % (Manual) Lymphocytes % (Manual) Seg Neutrophils # Seg Neutrophils # Man Nucleated RBC % Lymphocytes # (Manual) Monocytes # (Manual) PT INR Heparin Anti-Xa Level 2.00 H POC ABG pO2 ABG pH ABG Hemoglobin ABG Oxyhemoglobin ABG pO2 ABG HCO3 ABG O2 Saturation ABG Base Excess ABG Potassium ABG Glucose Oxyhemoglobin Sodium Potassium Chloride Carbon Dioxide BUN Creatinine Glucose POC Glucose 133 H 136 H Lactic Acid Calcium AST Phosphorus Total Protein Albumin C-Reactive Protein Arterial Blood Glucose Arterial Blood Ionized Calcium Urine WBC (Auto) 01/28/20 01/28/20 01/28/20 04:26 04:26 05:35 WBC RBC Hgb 9.6 L Hct 28.5 L MCHC RDW Plt Count 508 H Lymph % (Auto) Lymph # Lymph # (Auto) Seg Neutrophils % Seg Neuts % (Manual) Lymphocytes % (Manual) Seg Neutrophils # Seg Neutrophils # Man Nucleated RBC % Lymphocytes # (Manual) Monocytes # (Manual) PT INR Heparin Anti-Xa Level POC ABG pO2 ABG pH ABG Hemoglobin ABG Oxyhemoglobin ABG pO2 ABG HCO3 ABG O2 Saturation ABG Base Excess ABG Potassium ABG Glucose Oxyhemoglobin Sodium Potassium Chloride Carbon Dioxide 19 L BUN 20 H Creatinine 0.5 L Glucose 103 H POC Glucose 135 H Lactic Acid Calcium 7.9 L AST Phosphorus Total Protein Albumin C-Reactive Protein Arterial Blood Glucose Arterial Blood Ionized Calcium Urine WBC (Auto) 01/28/20 01/28/20 01/28/20 08:50 11:10 11:51 WBC RBC Hgb Hct MCHC RDW Plt Count Lymph % (Auto) Lymph # Lymph # (Auto) Seg Neutrophils % Seg Neuts % (Manual) Lymphocytes % (Manual) Seg Neutrophils # Seg Neutrophils # Man Nucleated RBC % Lymphocytes # (Manual) Monocytes # (Manual) PT INR Heparin Anti-Xa Level 0.74 H POC ABG pO2 67.2 L ABG pH ABG Hemoglobin 9.3 L ABG Oxyhemoglobin ABG pO2 ABG HCO3 ABG O2 Saturation ABG Base Excess ABG Potassium ABG Glucose Oxyhemoglobin Sodium Potassium Chloride Carbon Dioxide BUN Creatinine Glucose POC Glucose 160 H Lactic Acid Calcium AST Phosphorus Total Protein Albumin C-Reactive Protein Arterial Blood Glucose Arterial Blood Ionized Calcium Urine WBC (Auto) 01/28/20 01/28/20 01/29/20 17:19 23:53 03:52 WBC RBC Hgb Hct MCHC RDW Plt Count Lymph % (Auto) Lymph # Lymph # (Auto) Seg Neutrophils % Seg Neuts % (Manual) Lymphocytes % (Manual) Seg Neutrophils # Seg Neutrophils # Man Nucleated RBC % Lymphocytes # (Manual) Monocytes # (Manual) PT INR Heparin Anti-Xa Level POC ABG pO2 ABG pH 7.510 H ABG Hemoglobin 7.3 L ABG Oxyhemoglobin ABG pO2 357.0 H ABG HCO3 19.6 L ABG O2 Saturation 99.6 H ABG Base Excess -2.9 L ABG Potassium ABG Glucose Oxyhemoglobin Sodium Potassium Chloride Carbon Dioxide BUN Creatinine Glucose POC Glucose 177 H 142 H Lactic Acid Calcium AST Phosphorus Total Protein Albumin C-Reactive Protein Arterial Blood Glucose Arterial Blood Ionized Calcium Urine WBC (Auto) 01/29/20 01/29/20 01/29/20 04:58 04:58 06:01 WBC 13.1 H RBC 2.75 L Hgb 8.6 L Hct 25.6 L MCHC RDW 17.7 H Plt Count Lymph % (Auto) Lymph # Lymph # (Auto) Seg Neutrophils % Seg Neuts % (Manual) 91.0 H Lymphocytes % (Manual) 6.0 L Seg Neutrophils # Seg Neutrophils # Man 11.9 H Nucleated RBC % 1.0 H Lymphocytes # (Manual) 0.8 L Monocytes # (Manual) PT INR Heparin Anti-Xa Level POC ABG pO2 ABG pH ABG Hemoglobin ABG Oxyhemoglobin ABG pO2 ABG HCO3 ABG O2 Saturation ABG Base Excess ABG Potassium ABG Glucose Oxyhemoglobin Sodium 148 H Potassium 3.5 L D Chloride 113.2 H Carbon Dioxide 21 L BUN 20 H Creatinine Glucose 137 H POC Glucose 167 H Lactic Acid Calcium 8.1 L AST Phosphorus Total Protein Albumin C-Reactive Protein Arterial Blood Glucose Arterial Blood Ionized Calcium Urine WBC (Auto) 01/29/20 01/29/20 01/29/20 11:45 17:52 23:49 WBC RBC Hgb Hct MCHC RDW Plt Count Lymph % (Auto) Lymph # Lymph # (Auto) Seg Neutrophils % Seg Neuts % (Manual) Lymphocytes % (Manual) Seg Neutrophils # Seg Neutrophils # Man Nucleated RBC % Lymphocytes # (Manual) Monocytes # (Manual) PT INR Heparin Anti-Xa Level POC ABG pO2 ABG pH ABG Hemoglobin ABG Oxyhemoglobin ABG pO2 ABG HCO3 ABG O2 Saturation ABG Base Excess ABG Potassium ABG Glucose Oxyhemoglobin Sodium Potassium Chloride Carbon Dioxide BUN Creatinine Glucose POC Glucose 185 H 226 H 141 H Lactic Acid Calcium AST Phosphorus Total Protein Albumin C-Reactive Protein Arterial Blood Glucose Arterial Blood Ionized Calcium Urine WBC (Auto) 01/29/20 01/30/20 01/30/20 Unknown 03:24 04:00 WBC RBC Hgb 7.8 L Hct 23.5 L MCHC RDW Plt Count Lymph % (Auto) Lymph # Lymph # (Auto) Seg Neutrophils % Seg Neuts % (Manual) Lymphocytes % (Manual) Seg Neutrophils # Seg Neutrophils # Man Nucleated RBC % Lymphocytes # (Manual) Monocytes # (Manual) PT INR Heparin Anti-Xa Level POC ABG pO2 ABG pH 7.485 H ABG Hemoglobin 6.7 L ABG Oxyhemoglobin ABG pO2 102.0 H ABG HCO3 ABG O2 Saturation ABG Base Excess ABG Potassium ABG Glucose Oxyhemoglobin Sodium Potassium Chloride Carbon Dioxide BUN Creatinine Glucose POC Glucose Lactic Acid Calcium AST Phosphorus Total Protein Albumin C-Reactive Protein 14.80 H Arterial Blood Glucose Arterial Blood Ionized Calcium Urine WBC (Auto) 01/30/20 01/30/20 01/30/20 05:50 11:15 17:07 WBC RBC Hgb Hct MCHC RDW Plt Count Lymph % (Auto) Lymph # Lymph # (Auto) Seg Neutrophils % Seg Neuts % (Manual) Lymphocytes % (Manual) Seg Neutrophils # Seg Neutrophils # Man Nucleated RBC % Lymphocytes # (Manual) Monocytes # (Manual) PT INR Heparin Anti-Xa Level POC ABG pO2 ABG pH ABG Hemoglobin ABG Oxyhemoglobin ABG pO2 ABG HCO3 ABG O2 Saturation ABG Base Excess ABG Potassium ABG Glucose Oxyhemoglobin Sodium Potassium Chloride Carbon Dioxide BUN Creatinine Glucose POC Glucose 122 H 207 H 124 H Lactic Acid Calcium AST Phosphorus Total Protein Albumin C-Reactive Protein Arterial Blood Glucose Arterial Blood Ionized Calcium Urine WBC (Auto) 01/30/20 01/31/20 01/31/20 17:08 00:10 04:52 WBC RBC Hgb Hct MCHC RDW Plt Count Lymph % (Auto) Lymph # Lymph # (Auto) Seg Neutrophils % Seg Neuts % (Manual) Lymphocytes % (Manual) Seg Neutrophils # Seg Neutrophils # Man Nucleated RBC % Lymphocytes # (Manual) Monocytes # (Manual) PT INR Heparin Anti-Xa Level POC ABG pO2 ABG pH 7.504 H 7.486 H ABG Hemoglobin 7.4 L 6.2 L ABG Oxyhemoglobin ABG pO2 169.2 H 121.7 H ABG HCO3 27.1 H ABG O2 Saturation 99.1 H ABG Base Excess 3.4 H ABG Potassium ABG Glucose Oxyhemoglobin Sodium Potassium Chloride Carbon Dioxide BUN Creatinine Glucose POC Glucose 191 H Lactic Acid Calcium AST Phosphorus Total Protein Albumin C-Reactive Protein Arterial Blood Glucose Arterial Blood Ionized Calcium Urine WBC (Auto) 01/31/20 01/31/20 01/31/20 05:37 11:59 12:40 WBC RBC 2.41 L Hgb 7.5 L Hct 22.3 L MCHC RDW 22.2 H Plt Count Lymph % (Auto) Lymph # Lymph # (Auto) Seg Neutrophils % Seg Neuts % (Manual) 94.0 H Lymphocytes % (Manual) 2.0 L Seg Neutrophils # Seg Neutrophils # Man 9.4 H Nucleated RBC % Lymphocytes # (Manual) 0.2 L Monocytes # (Manual) PT INR Heparin Anti-Xa Level POC ABG pO2 ABG pH ABG Hemoglobin ABG Oxyhemoglobin ABG pO2 ABG HCO3 ABG O2 Saturation ABG Base Excess ABG Potassium ABG Glucose Oxyhemoglobin Sodium Potassium Chloride Carbon Dioxide BUN Creatinine Glucose POC Glucose 175 H 220 H Lactic Acid Calcium AST Phosphorus Total Protein Albumin C-Reactive Protein Arterial Blood Glucose Arterial Blood Ionized Calcium Urine WBC (Auto) 01/31/20 01/31/20 01/31/20 12:40 14:40 18:18 WBC RBC Hgb Hct MCHC RDW Plt Count Lymph % (Auto) Lymph # Lymph # (Auto) Seg Neutrophils % Seg Neuts % (Manual) Lymphocytes % (Manual) Seg Neutrophils # Seg Neutrophils # Man Nucleated RBC % Lymphocytes # (Manual) Monocytes # (Manual) PT INR Heparin Anti-Xa Level POC ABG pO2 124.7 H ABG pH 7.542 H ABG Hemoglobin 7.8 L ABG Oxyhemoglobin ABG pO2 ABG HCO3 ABG O2 Saturation ABG Base Excess ABG Potassium ABG Glucose Oxyhemoglobin Sodium 151 H Potassium 2.1 L* D Chloride 108.9 H Carbon Dioxide BUN 22 H Creatinine Glucose 194 H POC Glucose 181 H Lactic Acid Calcium 8.1 L AST Phosphorus Total Protein 4.8 L Albumin 2.3 L C-Reactive Protein Arterial Blood Glucose Arterial Blood Ionized Calcium Urine WBC (Auto) 02/01/20 02/01/20 02/01/20 00:11 03:14 04:32 WBC 11.9 H RBC 2.47 L Hgb 7.6 L Hct 22.8 L MCHC RDW 22.7 H Plt Count Lymph % (Auto) Lymph # Lymph # (Auto) Seg Neutrophils % Seg Neuts % (Manual) 90.0 H Lymphocytes % (Manual) 5.0 L Seg Neutrophils # Seg Neutrophils # Man 10.7 H Nucleated RBC % Lymphocytes # (Manual) 0.6 L Monocytes # (Manual) PT INR Heparin Anti-Xa Level POC ABG pO2 ABG pH 7.564 H ABG Hemoglobin 7.6 L ABG Oxyhemoglobin ABG pO2 124.1 H ABG HCO3 29.6 H ABG O2 Saturation ABG Base Excess 7.0 H ABG Potassium ABG Glucose Oxyhemoglobin Sodium Potassium Chloride Carbon Dioxide BUN Creatinine Glucose POC Glucose 190 H Lactic Acid Calcium AST Phosphorus Total Protein Albumin C-Reactive Protein Arterial Blood Glucose Arterial Blood Ionized Calcium Urine WBC (Auto) 02/01/20 02/01/20 02/01/20 04:32 05:28 11:56 WBC RBC Hgb Hct MCHC RDW Plt Count Lymph % (Auto) Lymph # Lymph # (Auto) Seg Neutrophils % Seg Neuts % (Manual) Lymphocytes % (Manual) Seg Neutrophils # Seg Neutrophils # Man Nucleated RBC % Lymphocytes # (Manual) Monocytes # (Manual) PT INR Heparin Anti-Xa Level POC ABG pO2 ABG pH ABG Hemoglobin ABG Oxyhemoglobin ABG pO2 ABG HCO3 ABG O2 Saturation ABG Base Excess ABG Potassium ABG Glucose Oxyhemoglobin Sodium 149 H Potassium 2.6 L* D Chloride Carbon Dioxide 33 H BUN 23 H Creatinine 0.5 L Glucose 174 H POC Glucose 187 H 195 H Lactic Acid Calcium 8.0 L AST Phosphorus 1.60 L Total Protein Albumin C-Reactive Protein Arterial Blood Glucose Arterial Blood Ionized Calcium Urine WBC (Auto) 02/01/20 02/01/20 02/02/20 18:15 23:35 04:33 WBC RBC Hgb Hct MCHC RDW Plt Count Lymph % (Auto) Lymph # Lymph # (Auto) Seg Neutrophils % Seg Neuts % (Manual) Lymphocytes % (Manual) Seg Neutrophils # Seg Neutrophils # Man Nucleated RBC % Lymphocytes # (Manual) Monocytes # (Manual) PT INR Heparin Anti-Xa Level POC ABG pO2 ABG pH 7.549 H ABG Hemoglobin 9.8 L ABG Oxyhemoglobin ABG pO2 ABG HCO3 ABG O2 Saturation ABG Base Excess ABG Potassium ABG Glucose Oxyhemoglobin Sodium Potassium Chloride Carbon Dioxide BUN Creatinine Glucose POC Glucose 226 H 252 H Lactic Acid Calcium AST Phosphorus Total Protein Albumin C-Reactive Protein Arterial Blood Glucose Arterial Blood Ionized Calcium Urine WBC (Auto) 02/02/20 02/02/20 02/02/20 05:25 05:25 05:40 WBC 15.5 H RBC 2.43 L Hgb 7.6 L Hct 22.9 L MCHC RDW 23.6 H Plt Count Lymph % (Auto) Lymph # Lymph # (Auto) Seg Neutrophils % Seg Neuts % (Manual) 89.0 H Lymphocytes % (Manual) 3.0 L Seg Neutrophils # Seg Neutrophils # Man 13.8 H Nucleated RBC % Lymphocytes # (Manual) 0.5 L Monocytes # (Manual) 0.9 H PT INR Heparin Anti-Xa Level POC ABG pO2 ABG pH ABG Hemoglobin ABG Oxyhemoglobin ABG pO2 ABG HCO3 ABG O2 Saturation ABG Base Excess ABG Potassium ABG Glucose Oxyhemoglobin Sodium Potassium 2.6 L* Chloride Carbon Dioxide 33 H BUN 26 H Creatinine Glucose 175 H POC Glucose 181 H Lactic Acid Calcium 7.9 L AST Phosphorus Total Protein Albumin C-Reactive Protein Arterial Blood Glucose Arterial Blood Ionized Calcium Urine WBC (Auto) 02/02/20 02/02/20 02/02/20 11:55 14:45 17:18 WBC RBC Hgb Hct MCHC RDW Plt Count Lymph % (Auto) Lymph # Lymph # (Auto) Seg Neutrophils % Seg Neuts % (Manual) Lymphocytes % (Manual) Seg Neutrophils # Seg Neutrophils # Man Nucleated RBC % Lymphocytes # (Manual) Monocytes # (Manual) PT INR Heparin Anti-Xa Level POC ABG pO2 ABG pH 7.56 H ABG Hemoglobin 7.6 L ABG Oxyhemoglobin ABG pO2 ABG HCO3 ABG O2 Saturation ABG Base Excess ABG Potassium ABG Glucose Oxyhemoglobin Sodium Potassium Chloride Carbon Dioxide BUN Creatinine Glucose POC Glucose 226 H 227 H Lactic Acid Calcium AST Phosphorus Total Protein Albumin C-Reactive Protein Arterial Blood Glucose Arterial Blood Ionized Calcium Urine WBC (Auto) 02/02/20 02/03/20 02/03/20 20:54 00:02 05:14 WBC 18.7 H RBC 2.45 L Hgb 7.6 L Hct 23.2 L MCHC RDW 23.5 H Plt Count Lymph % (Auto) Lymph # Lymph # (Auto) Seg Neutrophils % Seg Neuts % (Manual) 94.0 H Lymphocytes % (Manual) 3.0 L Seg Neutrophils # Seg Neutrophils # Man 17.6 H Nucleated RBC % Lymphocytes # (Manual) 0.6 L Monocytes # (Manual) PT INR Heparin Anti-Xa Level POC ABG pO2 ABG pH ABG Hemoglobin ABG Oxyhemoglobin ABG pO2 ABG HCO3 ABG O2 Saturation ABG Base Excess ABG Potassium ABG Glucose Oxyhemoglobin Sodium Potassium 3.2 L D Chloride Carbon Dioxide BUN Creatinine Glucose POC Glucose 204 H Lactic Acid Calcium AST Phosphorus Total Protein Albumin C-Reactive Protein Arterial Blood Glucose Arterial Blood Ionized Calcium Urine WBC (Auto) 02/03/20 02/03/20 02/03/20 05:14 05:14 05:20 WBC RBC Hgb Hct MCHC RDW Plt Count Lymph % (Auto) Lymph # Lymph # (Auto) Seg Neutrophils % Seg Neuts % (Manual) Lymphocytes % (Manual) Seg Neutrophils # Seg Neutrophils # Man Nucleated RBC % Lymphocytes # (Manual) Monocytes # (Manual) PT INR Heparin Anti-Xa Level POC ABG pO2 ABG pH ABG Hemoglobin ABG Oxyhemoglobin ABG pO2 ABG HCO3 ABG O2 Saturation ABG Base Excess ABG Potassium ABG Glucose Oxyhemoglobin Sodium Potassium 3.1 L Chloride Carbon Dioxide 33 H BUN 29 H Creatinine 0.5 L Glucose 160 H POC Glucose 146 H Lactic Acid Calcium 7.9 L AST Phosphorus 2.30 L Total Protein 4.8 L Albumin 2.4 L C-Reactive Protein Arterial Blood Glucose Arterial Blood Ionized Calcium Urine WBC (Auto) 02/03/20 02/03/20 02/03/20 12:35 18:14 23:26 WBC RBC Hgb Hct MCHC RDW Plt Count Lymph % (Auto) Lymph # Lymph # (Auto) Seg Neutrophils % Seg Neuts % (Manual) Lymphocytes % (Manual) Seg Neutrophils # Seg Neutrophils # Man Nucleated RBC % Lymphocytes # (Manual) Monocytes # (Manual) PT INR Heparin Anti-Xa Level POC ABG pO2 ABG pH ABG Hemoglobin ABG Oxyhemoglobin ABG pO2 ABG HCO3 ABG O2 Saturation ABG Base Excess ABG Potassium ABG Glucose Oxyhemoglobin Sodium Potassium Chloride Carbon Dioxide BUN Creatinine Glucose POC Glucose 219 H 248 H 173 H Lactic Acid Calcium AST Phosphorus Total Protein Albumin C-Reactive Protein Arterial Blood Glucose Arterial Blood Ionized Calcium Urine WBC (Auto) 02/04/20 02/04/20 02/04/20 05:34 05:36 06:51 WBC RBC Hgb Hct MCHC RDW Plt Count Lymph % (Auto) Lymph # Lymph # (Auto) Seg Neutrophils % Seg Neuts % (Manual) Lymphocytes % (Manual) Seg Neutrophils # Seg Neutrophils # Man Nucleated RBC % Lymphocytes # (Manual) Monocytes # (Manual) PT INR Heparin Anti-Xa Level POC ABG pO2 ABG pH ABG Hemoglobin ABG Oxyhemoglobin ABG pO2 ABG HCO3 ABG O2 Saturation ABG Base Excess ABG Potassium ABG Glucose Oxyhemoglobin Sodium Potassium Chloride Carbon Dioxide BUN Creatinine Glucose POC Glucose 56 L 64 L 127 H Lactic Acid Calcium AST Phosphorus Total Protein Albumin C-Reactive Protein Arterial Blood Glucose Arterial Blood Ionized Calcium Urine WBC (Auto) 02/04/20 02/04/20 02/04/20 11:57 13:42 13:53 WBC 19.2 H RBC 2.48 L Hgb 7.8 L Hct 23.5 L MCHC RDW 24.2 H Plt Count Lymph % (Auto) Lymph # Lymph # (Auto) Seg Neutrophils % Seg Neuts % (Manual) 97.0 H Lymphocytes % (Manual) 2.0 L Seg Neutrophils # Seg Neutrophils # Man 18.6 H Nucleated RBC % Lymphocytes # (Manual) 0.4 L Monocytes # (Manual) PT INR Heparin Anti-Xa Level POC ABG pO2 118.2 H ABG pH 7.525 H ABG Hemoglobin 8.7 L ABG Oxyhemoglobin ABG pO2 ABG HCO3 ABG O2 Saturation ABG Base Excess ABG Potassium 2.8 L ABG Glucose 185 H Oxyhemoglobin Sodium Potassium Chloride Carbon Dioxide BUN Creatinine Glucose POC Glucose 224 H Lactic Acid Calcium AST Phosphorus Total Protein Albumin C-Reactive Protein Arterial Blood Glucose 185 H Arterial Blood Ionized Calcium 4.5 L Urine WBC (Auto) 02/04/20 02/04/20 02/04/20 13:53 18:15 23:35 WBC RBC Hgb Hct MCHC RDW Plt Count Lymph % (Auto) Lymph # Lymph # (Auto) Seg Neutrophils % Seg Neuts % (Manual) Lymphocytes % (Manual) Seg Neutrophils # Seg Neutrophils # Man Nucleated RBC % Lymphocytes # (Manual) Monocytes # (Manual) PT INR Heparin Anti-Xa Level POC ABG pO2 ABG pH ABG Hemoglobin ABG Oxyhemoglobin ABG pO2 ABG HCO3 ABG O2 Saturation ABG Base Excess ABG Potassium ABG Glucose Oxyhemoglobin Sodium 147 H Potassium 2.8 L* Chloride Carbon Dioxide 38 H BUN 33 H Creatinine 0.5 L Glucose 202 H POC Glucose 215 H 197 H Lactic Acid Calcium AST Phosphorus Total Protein Albumin C-Reactive Protein Arterial Blood Glucose Arterial Blood Ionized Calcium Urine WBC (Auto) 02/05/20 02/05/20 02/05/20 01:03 04:00 04:00 WBC 26.7 H RBC 2.59 L Hgb 8.1 L Hct 24.6 L MCHC RDW 24.1 H Plt Count Lymph % (Auto) 1.6 L Lymph # Lymph # (Auto) 0.4 L Seg Neutrophils % Seg Neuts % (Manual) Lymphocytes % (Manual) Seg Neutrophils # 25.9 H Seg Neutrophils # Man Nucleated RBC % Lymphocytes # (Manual) Monocytes # (Manual) PT INR Heparin Anti-Xa Level POC ABG pO2 ABG pH ABG Hemoglobin 7.1 L ABG Oxyhemoglobin ABG pO2 50.7 L ABG HCO3 29.6 H ABG O2 Saturation 82.7 L ABG Base Excess 4.8 H ABG Potassium ABG Glucose Oxyhemoglobin 81.0 L Sodium 146 H Potassium Chloride Carbon Dioxide 32 H BUN 35 H Creatinine 0.5 L Glucose 226 H POC Glucose Lactic Acid Calcium AST Phosphorus Total Protein 5.1 L Albumin 2.2 L C-Reactive Protein Arterial Blood Glucose Arterial Blood Ionized Calcium Urine WBC (Auto) 02/05/20 02/05/20 02/06/20 05:32 17:56 00:19 WBC RBC Hgb Hct MCHC RDW Plt Count Lymph % (Auto) Lymph # Lymph # (Auto) Seg Neutrophils % Seg Neuts % (Manual) Lymphocytes % (Manual) Seg Neutrophils # Seg Neutrophils # Man Nucleated RBC % Lymphocytes # (Manual) Monocytes # (Manual) PT INR Heparin Anti-Xa Level POC ABG pO2 ABG pH ABG Hemoglobin ABG Oxyhemoglobin ABG pO2 ABG HCO3 ABG O2 Saturation ABG Base Excess ABG Potassium ABG Glucose Oxyhemoglobin Sodium Potassium Chloride Carbon Dioxide BUN Creatinine Glucose POC Glucose 239 H 175 H 309 H Lactic Acid Calcium AST Phosphorus Total Protein Albumin C-Reactive Protein Arterial Blood Glucose Arterial Blood Ionized Calcium Urine WBC (Auto) 02/06/20 02/06/20 02/06/20 04:27 05:11 05:40 WBC RBC Hgb Hct MCHC RDW Plt Count Lymph % (Auto) Lymph # Lymph # (Auto) Seg Neutrophils % Seg Neuts % (Manual) Lymphocytes % (Manual) Seg Neutrophils # Seg Neutrophils # Man Nucleated RBC % Lymphocytes # (Manual) Monocytes # (Manual) PT INR Heparin Anti-Xa Level POC ABG pO2 157.2 H ABG pH 7.551 H ABG Hemoglobin 7.3 L ABG Oxyhemoglobin 98.3 H ABG pO2 ABG HCO3 ABG O2 Saturation ABG Base Excess ABG Potassium ABG Glucose Oxyhemoglobin Sodium 148 H Potassium 3.0 L Chloride 107.3 H Carbon Dioxide 33 H BUN 33 H Creatinine 0.5 L Glucose 283 H POC Glucose 347 H Lactic Acid Calcium 7.9 L AST Phosphorus Total Protein 3.6 L D Albumin 1.2 L C-Reactive Protein Arterial Blood Glucose Arterial Blood Ionized Calcium Urine WBC (Auto) 02/06/20 02/06/20 02/06/20 08:45 11:52 18:26 WBC 16.3 H RBC 2.12 L Hgb 6.6 L Hct 20.3 L MCHC RDW 24.4 H Plt Count Lymph % (Auto) Lymph # Lymph # (Auto) Seg Neutrophils % Seg Neuts % (Manual) 98.0 H Lymphocytes % (Manual) 1.0 L Seg Neutrophils # Seg Neutrophils # Man 16.0 H Nucleated RBC % Lymphocytes # (Manual) 0.2 L Monocytes # (Manual) PT INR Heparin Anti-Xa Level POC ABG pO2 ABG pH ABG Hemoglobin ABG Oxyhemoglobin ABG pO2 ABG HCO3 ABG O2 Saturation ABG Base Excess ABG Potassium ABG Glucose Oxyhemoglobin Sodium Potassium Chloride Carbon Dioxide BUN Creatinine Glucose POC Glucose 132 H 114 H Lactic Acid Calcium AST Phosphorus Total Protein Albumin C-Reactive Protein Arterial Blood Glucose Arterial Blood Ionized Calcium Urine WBC (Auto) 02/07/20 02/07/20 02/07/20 00:08 05:41 11:49 WBC RBC Hgb Hct MCHC RDW Plt Count Lymph % (Auto) Lymph # Lymph # (Auto) Seg Neutrophils % Seg Neuts % (Manual) Lymphocytes % (Manual) Seg Neutrophils # Seg Neutrophils # Man Nucleated RBC % Lymphocytes # (Manual) Monocytes # (Manual) PT INR Heparin Anti-Xa Level POC ABG pO2 ABG pH ABG Hemoglobin ABG Oxyhemoglobin ABG pO2 ABG HCO3 ABG O2 Saturation ABG Base Excess ABG Potassium ABG Glucose Oxyhemoglobin Sodium Potassium Chloride Carbon Dioxide BUN Creatinine Glucose POC Glucose 111 H 164 H 146 H Lactic Acid Calcium AST Phosphorus Total Protein Albumin C-Reactive Protein Arterial Blood Glucose Arterial Blood Ionized Calcium Urine WBC (Auto) Chest x-ray: other (none today) Allied health notes reviewed: nursing
--- NOTE | 2020-02-07 15:57 | Progress Note ---
Assessment and Plan Cultures: Blood cultures 01/08/2020 MDR Proteus mirabilis. Blood culture 01/12/2020 no growth. Urine culture 01/08/2020 no growth. Tissue culture 01/16/2020 MDR Proteus and enterococcus BAL culture 01/28/2020: normal resp shoshana tracheal aspirate 02/05/2020: normal resp sh[place]ana A/P: 69 years old female with history of diabetes mellitus, pulmonary embolism, dementia, admitted on 01/08/2020 due to altered mental status, lethargy and hypotension. Patient was evaluated by her home health nurse who found her less active and hypotensive: #Septic shock: off pressors #s/p PEA arrest night on 01/28/2020 and 02/05/2020 #Proteus bacteremia: Likely from sacral decubitus. Continues on Zosyn #Unstageable sacral decubitus, infected: Status post or debridement on 01/16/2020, tissue cultures growing MDR Proteus and enterococcus. OR findings extensive fascial necrosis. Discussed with Dr Vo likely osteomyelitis. End date for Zosyn is 6 weeks till 02/27/2020. #UTI #Acute hypoxemic respiratory failure: remains on the vent. Recs:- -patient is off pressors. No new pathogen identified, would continue Zosyn 4.5 g IV every 8 hours, end date is 02/27/2020 -Offloading, wound care and wound VAC per surgery -Prognosis remains poor, hospice would be appropriate Bra[facility] Danielle [facility] Disease [employer] ([facility]) Subjective Date of service: 02/07/20 Principal diagnosis: Septic Shock; S/P Cardiac Arrest; Ac. hypoxemic resp failure; UTI Interval history: ID had last seen on 01/22/2020, plan was to complete a prolonged course of IV Zosyn. Pt with worsening status since then. Multiple episodes of respiratory arrest requiring mechanical ventilation. Had another PEA arrest on 02/05/2020. Patient remains intubated, on the vent, septic shock on pressors. ID was reconsulted. She is off pressors today. Objective - Exam Narrative Exam: Physical Exam: Constitutional: opens eyes, intubated, on the vent Head, Ears, Nose: Normocephalic, atraumatic. External ears, nose normal Eyes: Conjunctivae/corneas clear. No icterus. No ptosis. Neck: intubated Oral: intubated Cardiovascular: S1, S2 normal. Respiratory: AE fair b/l GI: Soft, non-tender, bowel sounds + Musculoskeletal: contractures, edematous extremities. Skin: sacral wound with wound VAC Hem/Lymphatic: No palpable cervical or supraclavicular nodes. No lymphangitis Psych: no agitation Neurological: opens eyes, intubated, on the vent - Constitutional Vitals: Vital Signs Temp Pulse Resp BP Pulse Ox 97.2 F L 90 18 147/73 100 02/07/20 12:00 02/07/20 15:00 02/07/20 15:00 02/07/20 15:00 02/07/20 15:00 Temperature -Last 24 Hours Temperature 97.2 F Temperature 97.6 F Temperature 98.7 F Temperature 98.8 F Temperature 98.9 F Temperature 98.2 F - Labs CBC & Chem 7: 02/06/20 08:45 02/06/20 05:11 Labs: Abnormal lab results 02/06/20 02/06/20 02/07/20 Range/Units 11:52 18:26 00:08 POC Glucose 132 H 114 H 111 H (70-105) 02/07/20 02/07/20 Range/Units 05:41 11:49 POC Glucose 164 H 146 H (70-105) - Imaging and cardiology Chest x-ray: report reviewed, image reviewed (small b/l effusions)
[2020-02-07] MEDS: DONEPEZIL 10 MG TAB PO SCH (21:39)
[2020-02-07] MEDS: traZODone 50 MG TAB PO SCH (21:39)
[2020-02-07] MEDS: MIRTAZAPINE 15 MG TAB PO SCH (21:39)
[2020-02-08] MEDS: INSULIN REGULAR, HUMAN 100 UNIT/ML 3ML VIAL SUB-Q SCH ×4 (00:11→17:57)
[2020-02-08] MEDS: PIPERACIL/TAZOBACTA 4.5/NS 100 4.5 GM/100 ML VIAL IV SCH ×3 (05:13→21:37)
[2020-02-08] MEDS: NEOMY 3.5 MG/BACIT 400 UNITS/POLY B 5000 UNITS OINT 15 GM TP SCH ×2 (05:21→10:05)
[2020-02-08 06:15] LABS: Basophils % (Auto) 0.2 % (0.0-1.8); Eosinophils # (Auto) 0.1 K/mm3 (0.0-0.4); Eosinophils % (Auto) 1.2 % (0.0-4.3); Hemoglobin 7.3 gm/dl (10.1-14.3); Lymphocytes # (Auto) 0.8 K/mm3 (1.2-5.4); Lymphocytes % (Auto) 8.5 % (13.4-35.0); Mean Corpuscular HGB Conc 33 % (30-34); Mean Corpuscular Volume 96 fl (79-97); Monocytes # (Auto) 0.2 K/mm3 (0.0-0.8); Monocytes % (Auto) 2.5 % (0.0-7.3); Platelet Count 263 K/mm3 (140-440)
[2020-02-08 06:18] LABS: Red Cell Distribution Width 23.9 % (13.2-15.2)
[2020-02-08 06:49] LABS: Blood Urea Nitrogen 29 mg/dL (7-17); Calcium 8.5 mg/dL (8.4-10.2); Hemolysis Index 5
[2020-02-08 06:56] LABS: BUN/Creatinine Ratio 97
--- NOTE | 2020-02-08 09:17 | Progress Note ---
Assessment and Plan Assessment and plan: --Acute hypoxic respiratory failure, status post cardiac arrest Continue mechanical ventilation, nebulizers, wean as tolerated status post extubation 02/02/2020 but had to be reintubated on 02/04 --Shock/ septic shock We will continue Levophed, wean as tolerated Etiology secondary to infected sacral decubitus ulcer and UTI --Proteus bacteremia. As above. --Hypokalemia Replete as needed Normal magnesium levels, closely monitor electrolytes -- Hypernatremia; Continue free water flushes via G-tube And monitor electrolytes -- Uncontrolled diabetes mellitus Blood sugars are very high , patient did not receive Lantus last night Lantus was already ordered this morning , monitor blood sugars and adjust Accu-Chek sliding scale coverage long-acting insulin DM management with SSI, TF --s/p PEA arrest night on 01/28/2020 and 02/05/2020 s/p CPR per ACLS protocol --Anoxic/hypoxic encephalopathy. Neurology consultation on Sunday with possible EEG/MRI -- Hydropneumothorax, not POA Patient developed hydropneumothorax on 01/15. Surgery evaluated s/p chest tube placed on 01/15. Improved, s/p chest tube removed 01/22, extubated 02/02/2020 Patient is using nasal cannula oxygen/BiPAP and Ventimask as needed -- large Left pleural effusion 01/25 Continue supportive care, pulmonary following --Unstageable sacral decubitus ulcer, infected/POA s/p wound debridement on 01/15. Wound vac in place ID recommend zosyn 4.5 g IV q8h total 6 weeks stop date 02/27/2020 -- UTI (urinary tract infection) Completed antibiotics --h/o Bilateral pulmonary embolism Had pulmonary embolism 7 months ago. CTA chest and LE doppler showed no acute PE or DVT eliquis now stopped -- Dementia: Continue donepezil --Severe protein-calorie malnutrition She is not eating well and is getting feeds through the NG tube. Discussed with - this problem has been chronic agreed for PEG PEG placed 01/13. Now on tube feeds --DVT prophylaxis; SCDs The high probability of a clinically significant, sudden or life threatening deterioration of the [Respiratory, MAINFRAME ARCHITECT, CVs] system(s) required my full and direct attention, intervention and personal management. The aggregate critical care time was [34] minutes. This time is in addition to time spent performing reported procedures but includes the following: [x] Data Review and interpretation [x] Patient assessment and monitoring of vital signs [x] Documentation [x] Medication orders and management Patient is critically ill, multiple episodes of cardiac arrest Multiple episodes of respiratory arrest requiring mechanical ventilation Very poor prognosis, financial services consultant recommendations noted and appreciated 02/02; patient was extubated on 02/02/2020, currently on Ventimask 02/03; patient feels slightly better saturating well on Ventimask/BiPAP as needed Hypo-kalemia replenish per protocol Full CODE STATUS 10/1; patient had yet another PEA arrest status post CPR per ACLS protocol Intubated on vent, very poor prognosis, full CODE STATUS 10/2; patient remains intubated on vent, septic shock on Levophed, hypokalemia, poor prognosis 02/07/2020. Patient currently with PSV/CPAP FiO2 50%, PEEP of 6 and pressure support of 10. Continue PSV trials as tolerated and wean per pulmonary. Recall ID consultation. 02/08/2020. Patient with Proteus bacteremia likely from sacral decubitus. Continue Zosyn 4.5 g IV every 8 hours until stop date of 02/26. Patient still on mechanical ventilation AC mode rate 12, tidal volume 350, FiO2 30% and PEEP of 6. Poor prognosis. Consider hospice. Continue scopolamine for secretion control. Continue pressors to maintain MAP > 65; currently off. History Interval history: No new issues overnight. Hospitalist Physical - Constitutional Vitals: Temp Pulse Resp BP Pulse Ox 97.3 F L 95 H 19 115/70 100 02/08/20 04:00 02/08/20 07:46 02/08/20 04:15 02/08/20 07:46 02/08/20 07:46 General appearance: Present: mild distress, well-nourished, other (Intubated on vent) - EENT Eyes: Present: PERRL, EOM intact ENT: hearing intact, clear oral mucosa, dentition normal - Neck Neck: Present: supple, normal ROM - Respiratory Respiratory effort: normal Respiratory: bilateral: CTA - Cardiovascular Rhythm: regular Heart Sounds: Present: S1 & S2. Absent: gallop, rub - Extremities Extremities: no ischemia, No edema, Full ROM - Abdominal General gastrointestinal: soft, non-tender, non-distended, normal bowel sounds - Integumentary Integumentary: Present: clear, warm, dry - Neurologic Neurologic: CNII-XII intact, moves all extremities Results - Labs CBC & Chem 7: 02/08/20 04:46 02/08/20 04:46 Labs: Laboratory Last Values WBC 10.0 K/mm3 (4.5-11.0) 02/08/20 04:46 RBC 2.30 M/mm3 (3.65-5.03) L 02/08/20 04:46 Hgb 7.3 gm/dl (10.1-14.3) L 02/08/20 04:46 Hct 22.0 % (30.3-42.9) L 02/08/20 04:46 MCV 96 fl (79-97) 02/08/20 04:46 MCH 32 pg (28-32) 02/08/20 04:46 MCHC 33 % (30-34) 02/08/20 04:46 RDW 23.9 % (13.2-15.2) H 02/08/20 04:46 Plt Count 263 K/mm3 (140-440) 02/08/20 04:46 Lymph % (Auto) 8.5 % (13.4-35.0) L 02/08/20 04:46 [place] % (Auto) 2.5 % (0.0-7.3) 02/08/20 04:46 Eos % (Auto) 1.2 % (0.0-4.3) 02/08/20 04:46 Baso % (Auto) 0.2 % (0.0-1.8) 02/08/20 04:46 Lymph # (Auto) 0.8 K/mm3 (1.2-5.4) L 02/08/20 04:46 [place] # (Auto) 0.2 K/mm3 (0.0-0.8) 02/08/20 04:46 Eos # (Auto) 0.1 K/mm3 (0.0-0.4) 02/08/20 04:46 Baso # (Auto) 0.0 K/mm3 (0.0-0.1) 02/08/20 04:46 Add Manual Diff Complete 02/06/20 08:45 Total Counted 100 02/06/20 08:45 Seg Neutrophils % 87.6 % (40.0-70.0) H 02/08/20 04:46 Seg Neuts % (Manual) 98.0 % (40.0-70.0) H 02/06/20 08:45 Band Neutrophils % 0 % 02/06/20 08:45 Lymphocytes % (Manual) 1.0 % (13.4-35.0) L 02/06/20 08:45 Reactive Lymphs % (Man) 0 % 02/06/20 08:45 Monocytes % (Manual) 1.0 % (0.0-7.3) 02/06/20 08:45 Eosinophils % (Manual) 0 % (0.0-4.3) 02/06/20 08:45 Basophils % (Manual) 0 % (0.0-1.8) 02/06/20 08:45 Metamyelocytes % 0 % 02/06/20 08:45 Myelocytes % 0 % 02/06/20 08:45 Promyelocytes % 0 % 02/06/20 08:45 Blast Cells % 0 % 02/06/20 08:45 Nucleated RBC % Not Reportable 02/06/20 08:45 Seg Neutrophils # 8.7 K/mm3 (1.8-7.7) H 02/08/20 04:46 Seg Neutrophils # Man 16.0 K/mm3 (1.8-7.7) H 02/06/20 08:45 Band Neutrophils # 0.0 K/mm3 02/06/20 08:45 Lymphocytes # (Manual) 0.2 K/mm3 (1.2-5.4) L 02/06/20 08:45 Abs React Lymphs (Man) 0.0 K/mm3 02/06/20 08:45 Monocytes # (Manual) 0.2 K/mm3 (0.0-0.8) 02/06/20 08:45 Eosinophils # (Manual) 0.0 K/mm3 (0.0-0.4) 02/06/20 08:45 Basophils # (Manual) 0.0 K/mm3 (0.0-0.1) 02/06/20 08:45 Metamyelocytes # 0.0 K/mm3 02/06/20 08:45 Myelocytes # 0.0 K/mm3 02/06/20 08:45 Promyelocytes # 0.0 K/mm3 02/06/20 08:45 Blast Cells # 0.0 K/mm3 02/06/20 08:45 WBC Morphology Not Reportable 02/06/20 08:45 Hypersegmented Neuts Not Reportable 02/06/20 08:45 Hyposegmented Neuts Not Reportable 02/06/20 08:45 Hypogranular Neuts Not Reportable 02/06/20 08:45 Smudge Cells Not Reportable 02/06/20 08:45 Toxic Granulation Not Reportable 02/06/20 08:45 Toxic Vacuolation Not Reportable 02/06/20 08:45 Dohle Bodies Not Reportable 02/06/20 08:45 Pelger-Huet Anomaly Not Reportable 02/06/20 08:45 Lata Rods Not Reportable 02/06/20 08:45 Platelet Estimate Consistent w auto 02/06/20 08:45 Clumped Platelets Not Reportable 02/06/20 08:45 Plt Clumps, EDTA Not Reportable 02/06/20 08:45 Large Platelets Few 02/06/20 08:45 Giant Platelets Not Reportable 02/06/20 08:45 Platelet Satelliting Not Reportable 02/06/20 08:45 Plt Morphology Comment Not Reportable 02/06/20 08:45 RBC Morphology Not Reportable 02/06/20 08:45 Dimorphic RBCs Not Reportable 02/06/20 08:45 Polychromasia Not Reportable 02/06/20 08:45 Hypochromasia 1+ 02/06/20 08:45 Poikilocytosis Not Reportable 02/06/20 08:45 Anisocytosis 2+ 02/06/20 08:45 Microcytosis Not Reportable 02/06/20 08:45 Macrocytosis Not Reportable 02/06/20 08:45 Spherocytes Not Reportable 02/06/20 08:45 Pappenheimer Bodies Not Reportable 02/06/20 08:45 Sickle Cells Not Reportable 02/06/20 08:45 Target Cells Few 02/06/20 08:45 Tear Drop Cells Not Reportable 02/06/20 08:45 Ovalocytes Not Reportable 02/06/20 08:45 Helmet Cells Not Reportable 02/06/20 08:45 [place] Bodies Not Reportable 02/06/20 08:45 [place] Rings Not Reportable 02/06/20 08:45 Leonidas Cells Not Reportable 02/06/20 08:45 Bite Cells Not Reportable 02/06/20 08:45 Crenated Cell Not Reportable 02/06/20 08:45 Elliptocytes Not Reportable 02/06/20 08:45 Acanthocytes (Spur) Not Reportable 02/06/20 08:45 Rouleaux Not Reportable 02/06/20 08:45 Hemoglobin C Crystals Not Reportable 02/06/20 08:45 Schistocytes Not Reportable 02/06/20 08:45 Malaria parasites Not Reportable 02/06/20 08:45 Gideon Bodies Not Reportable 02/06/20 08:45 Hem Pathologist Commnt No 02/06/20 08:45 APTT 33.9 Sec. (24.2-36.6) 01/26/20 16:30 PT 14.4 Sec. (12.2-14.9) 02/02/20 05:25 INR 1.11 (0.87-1.13) 02/02/20 05:25 Heparin Anti-Xa Level 0.74 U.I./ml (0.3-0.7) H 01/28/20 08:50 ABG pH 7.511 (7.320-7.450) H 02/08/20 03:55 POC ABG pCO2 51.2 mmHg (32.0-48.0) H 02/08/20 03:55 ABG pCO2 46.1 mm Hg 02/05/20 01:03 POC ABG pO2 112.8 mmHg (83-108) H 02/08/20 03:55 ABG pO2 50.7 mm Hg (80.0-90.0) L 02/05/20 01:03 POC ABG HCO3 32.2 02/08/20 03:55 ABG HCO3 29.6 mmol/L (20.0-26.0) H 02/05/20 01:03 ABG O2 Saturation 82.7 % (95.0-99.0) L 02/05/20 01:03 ABG O2 Content 8.2 (0.0-44) 02/05/20 01:03 POC ABG Base Excess 8.5 02/08/20 03:55 ABG Base Excess 4.8 mmol/L (-2.0-3.0) H 02/05/20 01:03 ABG Hemoglobin 7.8 (12.0-17.5) L 02/08/20 03:55 ABG Oxyhemoglobin 97.3 (94-98) 02/08/20 03:55 ABG Carboxyhemoglobin 1.5 % (0.0-5.0) 02/05/20 01:03 ABG Methemoglobin 0.3 (0.0-1.5) 02/08/20 03:55 ABG Sodium 138.6 mmol/L (136.0-145.0) 02/04/20 13:42 ABG Potassium 2.8 mmol/L (3.40-4.50) L 02/04/20 13:42 ABG Chloride 106.0 mmol/L (98-107) 02/04/20 13:42 ABG Glucose 185 mg/dL (65-95) H 02/04/20 13:42 Oxyhemoglobin 81.0 % (95.0-99.0) L 02/05/20 01:03 Carboxyhemoglobin 0.9 (0.5-1.5) 02/08/20 03:55 FiO2 30.0 02/08/20 03:55 Sodium 145 mmol/L (137-145) 02/08/20 04:46 Potassium 3.1 mmol/L (3.6-5.0) L 02/08/20 04:46 Chloride 104.8 mmol/L (98-107) 02/08/20 04:46 Carbon Dioxide 31 mmol/L (22-30) H 02/08/20 04:46 Anion Gap 12 mmol/L 02/08/20 04:46 BUN 29 mg/dL (7-17) H 02/08/20 04:46 Creatinine 0.3 mg/dL (0.6-1.2) L 02/08/20 04:46 Estimated GFR > 60 ml/min 02/08/20 04:46 BUN/Creatinine Ratio 97 % 02/08/20 04:46 Glucose 108 mg/dL (65-100) H 02/08/20 04:46 POC Glucose 117 (70-105) H 02/08/20 05:31 Hemoglobin A1c 5.3 % (4-6) 01/11/20 00:45 Lactic Acid 1.30 mmol/L (0.7-2.0) 01/26/20 23:27 Calcium 8.5 mg/dL (8.4-10.2) 02/08/20 04:46 Phosphorus 2.30 mg/dL (2.5-4.5) L 02/03/20 05:14 Magnesium 2.20 mg/dL (1.7-2.3) 02/06/20 05:11 Total Bilirubin 0.20 mg/dL (0.1-1.2) 02/06/20 05:11 AST 16 units/L (5-40) 02/06/20 05:11 ALT 18 units/L (7-56) 02/06/20 05:11 Alkaline Phosphatase 51 units/L (35-129) 02/06/20 05:11 C-Reactive Protein 14.80 mg/dL (0.00-1.30) H 01/29/20 Unknown Total Protein 3.6 g/dL (6.3-8.2) L D 02/06/20 05:11 Albumin 1.2 g/dL (3.9-5) L 02/06/20 05:11 Albumin/Globulin Ratio 0.5 % 02/06/20 05:11 TSH 2.440 mlU/mL (0.270-4.200) 01/10/20 10:10 Procalcitonin 1.86 ng/mL (<0.15) 01/29/20 Unknown Arterial Blood Glucose 185 mg/dL (65-95) H 02/04/20 13:42 Arterial Blood Ionized Calcium 4.5 mg/dL (4.6-5.3) L 02/04/20 13:42 Urine Color [place] (Yellow) 01/08/20 Unknown Urine Turbidity Cloudy (Clear) 01/08/20 Unknown Urine pH 5.0 (5.0-7.0) 01/08/20 Unknown Ur Specific [place] 1.018 (1.003-1.030) 01/08/20 Unknown Urine Protein 30 mg/dl mg/dL (Negative) 01/08/20 Unknown Urine Glucose (UA) Neg mg/dL (Negative) 01/08/20 Unknown Urine Ketones Neg mg/dL (Negative) 01/08/20 Unknown Urine Blood Mod (Negative) 01/08/20 Unknown Urine Nitrite Neg (Negative) 01/08/20 Unknown Urine Bilirubin Neg (Negative) 01/08/20 Unknown Urine Urobilinogen < 2.0 mg/dL (<2.0) 01/08/20 Unknown Ur Leukocyte Esterase Sm (Negative) 01/08/20 Unknown Urine WBC (Auto) 11.0 /HPF (0.0-6.0) H 01/08/20 Unknown Urine RBC (Auto) 7.0 /HPF (0.0-6.0) 01/08/20 Unknown U Epithel Cells (Auto) < 1.0 /HPF (0-13.0) 01/08/20 Unknown Urine Bacteria (Auto) 1+ /HPF (Negative) 01/08/20 Unknown Urine Mucus 2+ /HPF 01/08/20 Unknown Urine Yeast (Budding) 1+ /HPF 01/08/20 Unknown Vancomycin Trough 7.9 ug/mL (5.0-20.0) 01/17/20 16:04 Microbiology: Microbiology 02/05/20 01:06 Tracheal Aspirate Sputum Culture - Final Mejía/IV: Voiding Method Indwelling Catheter IV Catheter Type [Left Upper PICC Line arm] IV Catheter Type [Right Upper Mid-line arm] IV Catheter Type [Right Peripheral IV Forearm] Active Medications - Current Medications Current Medications: Generic Name Dose Route Start Last Admin Trade Name Freq PRN Reason Stop Dose Admin Acetaminophen 650 mg 01/08/20 23:14 01/18/20 06:03 Tylenol PO 650 mg Q4H PRN Administration Pain MILD(1-3)/Fever >100.5/GARCIA Lipase/Protease/Amylase 1 each 01/17/20 08:37 Pancreaze 10,500 Unit FEEDTUBE PRN PRN For Clogged Feeding Tube Atorvastatin Calcium 10 mg 01/09/20 22:00 02/07/20 21:38 Atorvastatin PO 10 mg QHS BRO Administration Dextrose 0 ml 01/08/20 23:14 02/04/20 06:12 D50w (25gm) Syringe IV 15 ml Q30MIN PRN Administration Hypoglycemia Protocol Donepezil HCl 10 mg 01/09/20 22:00 02/07/20 21:39 Aricept PO 10 mg QHS BRO Administration Famotidine 20 mg 01/27/20 10:00 02/07/20 21:38 Pepcid PO 20 mg BID BRO Administration Fluticasone Propionate 100 mcg 01/25/20 20:00 01/26/20 06:09 Flonase NS 100 mcg QDAY PRN Administration Nasal Congestion Heparin Sodium (Porcine) 5,000 unit 01/28/20 10:00 02/07/20 21:40 Heparin SUB-Q 5,000 unit Q12HR BRO Administration Hydrophilic Ointment 1 applic 01/28/20 10:57 Vaseline Lip Therapy TP Q2HR PRN Dry Lips Piperacillin Sod/Tazobactam Sod 4.5 gm in 100 mls @ 200 mls/hr 01/19/20 14:00 02/08/20 05:13 Zosyn/Ns 4.5gm/100ml IV 02/27/20 22:29 200 mls/hr Q8HR BRO Administration Protocol Norepinephrine 4 mg in 250 mls @ 7.5 mls/hr 02/05/20 01:00 02/06/20 15:32 Levophed Drip 4 Mg/Ns 250 Ml IV Infused TITR BRO Titration Protocol 2 MCG/MIN Lactated Ringer's 250 mls @ 250 mls/hr 02/06/20 18:00 Lactated Ringers IV DIRECT BRO Insulin Glargine 5 units 02/06/20 10:00 02/07/20 09:52 Lantus SUB-Q 5 units DAILY BRO Administration Insulin Human Regular 0 unit 01/27/20 12:00 02/08/20 05:20 Humulin R SUB-Q Not Given Q6HR [facility] Protocol Magnesium Hydroxide 30 ml 01/08/20 23:14 Milk Of Magnesia PO Q4H PRN Constipation Megestrol Acetate 400 mg 01/12/20 11:00 02/07/20 09:51 Megestrol PO 400 mg QDAY BRO Administration Mirtazapine 15 mg 01/09/20 22:00 02/07/20 21:39 Remeron PO 15 mg QHS BRO Administration Multi-Ingred Cream/Lotion/Oil/Oint 1 applic 01/28/20 10:57 Artificial Tears Ophth Oint OU Q4HR PRN Dry Eye(s) Neomycin/Polymyxin/Bacitracin 1 applic 02/08/20 04:45 02/08/20 05:21 Triple Antibiotic TP 1 applic QDAY BRO Administration Ondansetron HCl 4 mg 01/08/20 23:14 Zofran IV Q8H PRN Nausea And Vomiting Scopolamine 1 each 02/05/20 10:00 02/05/20 10:00 Transderm-Scop TD 1 each Q3D BRO Administration Simple Syrup 15 ml 01/17/20 08:37 Simple Syrup FEEDTUBE PRN PRN Hypoglycemia Simple Syrup 30 ml 01/17/20 08:37 Simple Syrup FEEDTUBE PRN PRN Hypoglycemia Sodium Bicarbonate 325 mg 01/17/20 08:37 Sodium Bicarbonate FEEDTUBE PRN PRN For Clogged Feeding Tube Sodium Chloride 10 ml 01/09/20 10:00 02/07/20 21:40 Sodium Chloride Flush Syringe 10 Ml IV 10 ml BID BRO Administration Sodium Chloride 10 ml 01/08/20 23:14 Sodium Chloride Flush Syringe 10 Ml IV PRN PRN LINE FLUSH Trazodone HCl 25 mg 01/09/20 22:00 02/07/20 21:39 Desyrel PO 25 mg QHS BRO Administration Nutrition/Malnutrition Assess - Dietary Evaluation Nutrition/Malnutrition Findings: Nutrition Notes Start: 01/09/20 12:13 Freq: Status: Active Protocol: Document 02/03/20 11:26 [email or web address] (Rec: 02/03/20 13:23 [email or web address]) Co-Sign 02/03/20 11:26 NHALL Nutrition Notes Initial or Follow up Reassessment Current Diagnosis Decubitus(Pressure Ulcer), Diabetes,Sepsis Other Pertinent Diagnosis UTI, dementia, PE, Sacral wound Current Diet Vital AF 1.2 at 50ml/hr Labs/Tests K 3.1 BUN 29 BG 160 Pertinent Medications Solucortef KCl 20mEq Height 5 ft 2 in Weight 65 kg [place] Body Weight (kg) 50.00 BMI 26.2 Weight change and time frame Wt change noted. Pt has edema Subjective/Other Information F/U for TF tolerance. Pt extubated yesterday. No TF running at time of visit. Per RN, TF running at goal rate Burn Absent Trauma Absent Current % PO Negligible Minimum of two criteria Yes Fluid Accumulation Moderate to Severe (severe) Reduced Mri Tech Strength Measurably Reduced (severe) #3 Nutrition Diagnosis Malnutrition Diagnosis Progress(for reassessment Continues documentation) #2 Nutrition Diagnosis Inadequate oral intake Diagnosis Progress(for reassessment Continues documentation) #1 Nutrition Diagnosis Increased nutrient needs ( specify in comment below) Diagnosis Progress(for reassessment Continues documentation) Is patient on ventilator? No Is Patient Ambulatory and/or Out of Bed No REE-([place]-St. Jeor-confined to bed) 1353.840 Kcal/Kg value to use for calculation 24 Approximate Energy Requirements Using 1560 kcal/Kg Calculation Used for Recommendations Kcal/kg Additional Notes Protein Needs: 81-98g(1.25-1.5 ) Fluid Needs: 1ml/kcal Nutrition Intervention Change Diet Order: Continue Nutrition Support: Vital AF 1.2 at 50ml/hr Flush 200ml q4h per MD Kcal 1,440 Protein (gm) 90 Fluid (mL) 973 Goal #1 Meet at least 80% of kcal and protein needs via TF Goal #2 TF tolerance Goal #3 Wound Healing Anticipated Discharge Needs: Continue TF Follow-Up By: 02/10/20 Additional Comments F/U TF tolerance
[2020-02-08] MEDS: FAMOTIDINE 20 MG TAB PO SCH ×2 (10:04→21:35)
[2020-02-08] MEDS: INSULIN GLARGINE 100 UNITS/ML SUB-Q SCH (10:04)
[2020-02-08] MEDS: MEGESTROL 400 MG/10 ML ORAL LIQD PO SCH (10:04)
[2020-02-08] MEDS: HEPARIN 5,000 UNIT/1 ML VIAL SUB-Q SCH ×2 (10:04→21:36)
[2020-02-08] MEDS: SCOPOLAMINE TRANSDERMAL PATCH 72 HR TD SCH (10:05)
--- NOTE | 2020-02-08 12:59 | Progress Note ---
Assessment and Plan Cultures: Blood cultures 01/08/2020 MDR Proteus mirabilis. Blood culture 01/12/2020 no growth. Urine culture 01/08/2020 no growth. Tissue culture 01/16/2020 MDR Proteus and enterococcus BAL culture 01/28/2020: normal resp shoshana tracheal aspirate 02/05/2020: normal resp shoshana A/P: 69 years old female with history of diabetes mellitus, pulmonary embolism, dementia, admitted on 01/08/2020 due to altered mental status, lethargy and hypotension. Patient was evaluated by her home health nurse who found her less active and hypotensive: #Septic shock: off pressors. #s/p PEA arrest night of 01/28/2020 and on 02/05/2020 #Proteus bacteremia: Likely from sacral decubitus. Continues on Zosyn. #Unstageable sacral decubitus, infected: Status post or debridement on 01/16/2020, tissue cultures growing MDR Proteus and enterococcus. OR findings extensive fascial necrosis. Dr. Roberts had discussed with Dr Vo likely osteomyelitis. End date for Zosyn is 6 weeks till 02/27/2020. Prognosis however is poor. #UTI #Acute hypoxemic respiratory failure: remains on the vent. Recs:- -continue Zosyn 4.5 g IV every 8 hours, end date is 02/27/2020 -Offloading, wound care and wound VAC per surgery -Prognosis remains poor, hospice would be appropriate [facility] Infectious Disease Blow Up Operator (MID) Subjective Date of service: 02/08/20 Principal diagnosis: Septic Shock; S/P Cardiac Arrest; Ac. hypoxemic resp failure; UTI Interval history: Remains off pressors. On the vent. No fever. Doesn't respond. Objective - Exam Narrative Exam: Physical Exam: Constitutional: opens eyes, intubated, on the vent Head, Ears, Nose: Normocephalic, atraumatic. External ears, nose normal Eyes: Conjunctivae/corneas clear. No icterus. No ptosis. Neck: intubated Oral: intubated Cardiovascular: S1, S2 normal. Respiratory: AE fair b/l GI: Soft, non-tender, bowel sounds + Musculoskeletal: contractures, edematous extremities. Skin: sacral wound with wound VAC Hem/Lymphatic: No palpable cervical or supraclavicular nodes. No lymphangitis Psych: no agitation Neurological: opens eyes but doesn't respond, intubated, on the vent - Constitutional Vitals: Vital Signs Temp Pulse Resp BP Pulse Ox 97.3 F L 79 19 114/54 100 02/08/20 04:00 02/08/20 11:56 02/08/20 04:15 02/08/20 11:56 02/08/20 11:56 Temperature -Last 24 Hours Temperature 97.3 F Temperature 97.8 F Temperature 97.4 F Temperature 97.4 F - Labs CBC & Chem 7: 02/08/20 04:46 02/08/20 04:46 Labs: Abnormal lab results 02/07/20 02/07/20 02/08/20 Range/Units 17:56 23:27 03:55 RBC (3.65-5.03) M/mm3 Hgb (10.1-14.3) gm/dl Hct (30.3-42.9) % RDW (13.2-15.2) % Lymph % (Auto) (13.4-35.0) % Lymph # (Auto) (1.2-5.4) K/mm3 Seg Neutrophils % (40.0-70.0) % Seg Neutrophils # (1.8-7.7) K/mm3 ABG pH 7.511 H (7.320-7.450) POC ABG pCO2 51.2 H (32.0-48.0) mmHg POC ABG pO2 112.8 H (83-108) mmHg ABG Hemoglobin 7.8 L (12.0-17.5) Potassium (3.6-5.0) mmol/L Carbon Dioxide (22-30) mmol/L BUN (7-17) mg/dL Creatinine (0.6-1.2) mg/dL Glucose (65-100) mg/dL POC Glucose 140 H 164 H (70-105) 02/08/20 02/08/20 02/08/20 Range/Units 04:46 04:46 05:31 RBC 2.30 L (3.65-5.03) M/mm3 Hgb 7.3 L (10.1-14.3) gm/dl Hct 22.0 L (30.3-42.9) % RDW 23.9 H (13.2-15.2) % Lymph % (Auto) 8.5 L (13.4-35.0) % Lymph # (Auto) 0.8 L (1.2-5.4) K/mm3 Seg Neutrophils % 87.6 H (40.0-70.0) % Seg Neutrophils # 8.7 H (1.8-7.7) K/mm3 ABG pH (7.320-7.450) POC ABG pCO2 (32.0-48.0) mmHg POC ABG pO2 (83-108) mmHg ABG Hemoglobin (12.0-17.5) Potassium 3.1 L (3.6-5.0) mmol/L Carbon Dioxide 31 H (22-30) mmol/L BUN 29 H (7-17) mg/dL Creatinine 0.3 L (0.6-1.2) mg/dL Glucose 108 H (65-100) mg/dL POC Glucose 117 H (70-105) 02/08/20 02/08/20 02/08/20 Range/Units 10:15 12:10 12:23 RBC (3.65-5.03) M/mm3 Hgb (10.1-14.3) gm/dl Hct (30.3-42.9) % RDW (13.2-15.2) % Lymph % (Auto) (13.4-35.0) % Lymph # (Auto) (1.2-5.4) K/mm3 Seg Neutrophils % (40.0-70.0) % Seg Neutrophils # (1.8-7.7) K/mm3 ABG pH (7.320-7.450) POC ABG pCO2 (32.0-48.0) mmHg POC ABG pO2 (83-108) mmHg ABG Hemoglobin (12.0-17.5) Potassium (3.6-5.0) mmol/L Carbon Dioxide (22-30) mmol/L BUN (7-17) mg/dL Creatinine (0.6-1.2) mg/dL Glucose (65-100) mg/dL POC Glucose 164 H 170 H 164 H (70-105)
--- NOTE | 2020-02-08 15:32 | Progress Note ---
Assessment and Plan Severe sepsis with shock. Left lung atelectasis. Left pleural effusion. Acute hypoxemic respiratory failure. Acute possibly on chronic encephalopathy. History of diabetes. Urinary tract infection. History of pulmonary embolism, diagnosed several months ago. Sacral decubitus ulcer. Dementia. Anemia that is normocytic. - replaced potasium - reduced TV to 300 ml's - will benefit from tracheostomy - complete AB's per ID rec's (Zosyn) - continue care as below otherwise; - continue to wean supplemental oxygen for target O2 sat's > 92% acutely - VAP bundle addressed - continue lung protective strategies - continue bronchodilators with pulmonary hygiene per RT - wean per pulmonary driven protocols otherwise - continue accuchecks with glycemic control per SSI (While critically ill target blood glucose of 140-180 mg/dL; avoid hypoglycemia) - sedation prn for target RASS 0 to -1 - avoid nephrotoxins, renally dose all medications - continue to avoid benzodiazepine's, reduce the possibility of delirium - prn analgesia per CPOT score - Maintenance of sleep-wake cycle, avoid delirium - continue enteral nutritional support at goal rate as tolerated - G.I. & VTE prophylaxis with famotidine and heparin - PT/OT/ROM exercises - continue mobility protocols for pressure ulcer prophylaxis - Monitor hemodynamics closely - continue other care per attending / other consultants - discharge planning ongoing concurrently .... Re-evaluate in am & prn CONDITION: CRITICAL PROGNOSIS: GUARDED CODE STATUS: FULL CODE The high probability of a clinically significant, sudden or life-threatening deterioration of the [respiratory, cardiovascular & neurologic] system(s) required my full and direct attention, intervention and personal management. The aggregate critical care time was [35] minutes without overlap. Time includes spent on; [x] Data Review and interpretation [x] Patient assessment and monitoring of vital signs [x] Documentation [x] Medication orders and management Subjective Date of service: 02/08/20 Principal diagnosis: Septic Shock; S/P Cardiac Arrest; Ac. hypoxemic resp failure; UTI Interval history: Patient is seen today for: Severe sepsis with shock; S/P Cardiac Arrest; L. lung atelectasis / L. pleural effusion; Acute hypoxemic respiratory failure; Acute possibly on chronic encephalopathy; DM II; UTI; VTE Seen and examined at bedside; 24hour events reviewed; nursing and respiratory care staff consulted; no adverse overnight events reported to me; resting peacefully in bed; failed SBT's today due to prolonged apnea's; off vasopressors; no new issues otherwise Objective Vital Signs - 12hr 02/08/20 02/08/20 02/08/20 03:45 04:00 04:15 Temperature 97.3 F L Pulse Rate 100 H 98 H 97 H Respiratory 20 18 19 Rate Blood Pressure 173/70 161/76 162/66 O2 Sat by Pulse 100 100 100 Oximetry 02/08/20 02/08/20 02/08/20 04:30 04:46 05:00 Temperature Pulse Rate 110 H 101 H 95 H Respiratory Rate Blood Pressure 162/66 131/66 122/64 O2 Sat by Pulse 100 100 100 Oximetry 02/08/20 02/08/20 02/08/20 05:15 05:30 05:45 Temperature Pulse Rate 98 H 97 H 95 H Respiratory Rate Blood Pressure 115/67 118/64 121/63 O2 Sat by Pulse 100 100 100 Oximetry 02/08/20 02/08/20 02/08/20 06:00 06:15 06:30 Temperature Pulse Rate 93 H 91 H 92 H Respiratory Rate Blood Pressure 126/61 119/61 126/62 O2 Sat by Pulse 100 100 100 Oximetry 02/08/20 02/08/20 02/08/20 06:45 07:00 07:15 Temperature Pulse Rate 77 70 89 Respiratory Rate Blood Pressure 112/54 128/53 125/61 O2 Sat by Pulse 100 100 100 Oximetry 02/08/20 02/08/20 02/08/20 07:30 07:35 07:46 Temperature Pulse Rate 85 80 95 H Respiratory Rate Blood Pressure 116/60 116/60 115/70 O2 Sat by Pulse 100 100 100 Oximetry 02/08/20 02/08/20 11:56 12:00 Temperature 94.0 F L Pulse Rate 79 Respiratory Rate Blood Pressure 114/54 O2 Sat by Pulse 100 Oximetry Constitutional: no acute distress, alert, other (elderly chronically ill looking female orally intubated to MVS) Eyes: non-icteric ENT: oropharynx moist, other (ETT 7.5 cm at 22 FLORENCIO) Neck: supple, no lymphadenopathy Effort: normal Ascultation: Bilateral: diminished breath sounds, rhonchi (scant) Percussion: Bilateral: not dull Cardiovascular: regular rate and rhythm, other (S1,S2) Gastrointestinal: normoactive bowel sounds, soft, non-tender, non-distended, other (PEG in place) Integumentary: decubitus ulcer Extremities: no cyanosis, pulses normal, no ischemia or petechiae, edema, other (bilateral upper extremity edema) Neurologic: pupils equal and round, other (awake and alert, not obeying commands) Psychiatric: other (Unable to assess secondary to mental status) CBC and BMP: 02/08/20 04:46 02/08/20 04:46 ABG, PT/INR, D-dimer: ABG ABG pH 7.511 (7.320-7.450) H 02/08/20 03:55 POC ABG pCO2 51.2 mmHg (32.0-48.0) H 02/08/20 03:55 ABG pCO2 46.1 mm Hg 02/05/20 01:03 POC ABG pO2 112.8 mmHg (83-108) H 02/08/20 03:55 ABG pO2 50.7 mm Hg (80.0-90.0) L 02/05/20 01:03 POC ABG HCO3 32.2 02/08/20 03:55 ABG O2 Saturation 82.7 % (95.0-99.0) L 02/05/20 01:03 PT/INR, D-dimer PT 14.4 Sec. (12.2-14.9) 02/02/20 05:25 INR 1.11 (0.87-1.13) 02/02/20 05:25 Abnormal lab findings: Abnormal Labs 01/08/20 01/08/20 01/08/20 16:29 16:29 16:29 WBC 13.5 H RBC Hgb Hct MCHC RDW 15.5 H Plt Count Lymph % (Auto) Lymph # Lymph # (Auto) Seg Neutrophils % Seg Neuts % (Manual) 85.0 H Lymphocytes % (Manual) 11.0 L Seg Neutrophils # Seg Neutrophils # Man 11.5 H Nucleated RBC % Lymphocytes # (Manual) Monocytes # (Manual) PT INR Heparin Anti-Xa Level POC ABG pO2 ABG pH POC ABG pCO2 ABG Hemoglobin ABG Oxyhemoglobin ABG pO2 ABG HCO3 ABG O2 Saturation ABG Base Excess ABG Potassium ABG Glucose Oxyhemoglobin Sodium 161 H* Potassium Chloride 125.5 H Carbon Dioxide 20 L BUN 30 H Creatinine Glucose 115 H POC Glucose Lactic Acid 2.20 H* Calcium 7.9 L AST 48 H Phosphorus Total Protein Albumin 2.5 L C-Reactive Protein Arterial Blood Glucose Arterial Blood Ionized Calcium Urine WBC (Auto) 01/08/20 01/08/20 01/08/20 19:02 23:30 Unknown WBC RBC Hgb Hct MCHC RDW Plt Count Lymph % (Auto) Lymph # Lymph # (Auto) Seg Neutrophils % Seg Neuts % (Manual) Lymphocytes % (Manual) Seg Neutrophils # Seg Neutrophils # Man Nucleated RBC % Lymphocytes # (Manual) Monocytes # (Manual) PT INR Heparin Anti-Xa Level POC ABG pO2 ABG pH POC ABG pCO2 ABG Hemoglobin ABG Oxyhemoglobin ABG pO2 ABG HCO3 ABG O2 Saturation ABG Base Excess ABG Potassium ABG Glucose Oxyhemoglobin Sodium Potassium Chloride Carbon Dioxide BUN Creatinine Glucose POC Glucose Lactic Acid 2.10 H* 2.50 H* Calcium AST Phosphorus Total Protein Albumin C-Reactive Protein Arterial Blood Glucose Arterial Blood Ionized Calcium Urine WBC (Auto) 11.0 H 01/09/20 01/09/20 01/09/20 00:19 00:54 05:52 WBC 13.5 H RBC 3.02 L Hgb 9.0 L D Hct 27.4 L D MCHC RDW Plt Count Lymph % (Auto) 9.1 L Lymph # Lymph # (Auto) Seg Neutrophils % 87.6 H Seg Neuts % (Manual) Lymphocytes % (Manual) Seg Neutrophils # 11.8 H Seg Neutrophils # Man Nucleated RBC % Lymphocytes # (Manual) Monocytes # (Manual) PT INR Heparin Anti-Xa Level POC ABG pO2 ABG pH POC ABG pCO2 ABG Hemoglobin ABG Oxyhemoglobin ABG pO2 ABG HCO3 ABG O2 Saturation ABG Base Excess ABG Potassium ABG Glucose Oxyhemoglobin Sodium Potassium Chloride Carbon Dioxide BUN Creatinine Glucose POC Glucose 118 H 116 H Lactic Acid Calcium AST Phosphorus Total Protein Albumin C-Reactive Protein Arterial Blood Glucose Arterial Blood Ionized Calcium Urine WBC (Auto) 01/09/20 01/09/20 01/09/20 05:52 05:52 13:03 WBC RBC Hgb Hct MCHC RDW Plt Count Lymph % (Auto) Lymph # Lymph # (Auto) Seg Neutrophils % Seg Neuts % (Manual) Lymphocytes % (Manual) Seg Neutrophils # Seg Neutrophils # Man Nucleated RBC % Lymphocytes # (Manual) Monocytes # (Manual) PT 17.1 H INR 1.36 H Heparin Anti-Xa Level POC ABG pO2 ABG pH POC ABG pCO2 ABG Hemoglobin ABG Oxyhemoglobin ABG pO2 ABG HCO3 ABG O2 Saturation ABG Base Excess ABG Potassium ABG Glucose Oxyhemoglobin Sodium 162 H* Potassium 3.0 L D Chloride 128.3 H Carbon Dioxide BUN 23 H Creatinine Glucose POC Glucose 55 L Lactic Acid Calcium 7.6 L AST Phosphorus Total Protein Albumin C-Reactive Protein Arterial Blood Glucose Arterial Blood Ionized Calcium Urine WBC (Auto) 01/09/20 01/09/20 01/09/20 21:22 21:50 22:28 WBC RBC Hgb Hct MCHC RDW Plt Count Lymph % (Auto) Lymph # Lymph # (Auto) Seg Neutrophils % Seg Neuts % (Manual) Lymphocytes % (Manual) Seg Neutrophils # Seg Neutrophils # Man Nucleated RBC % Lymphocytes # (Manual) Monocytes # (Manual) PT INR Heparin Anti-Xa Level POC ABG pO2 ABG pH POC ABG pCO2 ABG Hemoglobin ABG Oxyhemoglobin ABG pO2 ABG HCO3 ABG O2 Saturation ABG Base Excess ABG Potassium ABG Glucose Oxyhemoglobin Sodium 159 H Potassium 5.1 H D Chloride 128.5 H Carbon Dioxide 16 L BUN 23 H Creatinine Glucose 51 L POC Glucose 52 L 106 H Lactic Acid Calcium 8.2 L AST Phosphorus Total Protein Albumin C-Reactive Protein Arterial Blood Glucose Arterial Blood Ionized Calcium Urine WBC (Auto) 01/10/20 01/10/20 01/10/20 05:23 09:11 10:10 WBC 13.4 H RBC Hgb Hct MCHC RDW Plt Count Lymph % (Auto) 7.2 L Lymph # 1.0 L Lymph # (Auto) Seg Neutrophils % 90.0 H Seg Neuts % (Manual) Lymphocytes % (Manual) Seg Neutrophils # 12.0 H Seg Neutrophils # Man Nucleated RBC % Lymphocytes # (Manual) Monocytes # (Manual) PT INR Heparin Anti-Xa Level POC ABG pO2 ABG pH POC ABG pCO2 ABG Hemoglobin ABG Oxyhemoglobin ABG pO2 ABG HCO3 ABG O2 Saturation ABG Base Excess ABG Potassium ABG Glucose Oxyhemoglobin Sodium 155 H Potassium Chloride 122.8 H Carbon Dioxide 21 L BUN 19 H Creatinine Glucose POC Glucose 120 H Lactic Acid Calcium AST Phosphorus Total Protein Albumin C-Reactive Protein Arterial Blood Glucose Arterial Blood Ionized Calcium Urine WBC (Auto) 01/10/20 01/10/20 01/10/20 11:47 11:57 17:09 WBC RBC Hgb Hct MCHC RDW Plt Count Lymph % (Auto) Lymph # Lymph # (Auto) Seg Neutrophils % Seg Neuts % (Manual) Lymphocytes % (Manual) Seg Neutrophils # Seg Neutrophils # Man Nucleated RBC % Lymphocytes # (Manual) Monocytes # (Manual) PT INR Heparin Anti-Xa Level POC ABG pO2 ABG pH POC ABG pCO2 ABG Hemoglobin ABG Oxyhemoglobin ABG pO2 ABG HCO3 ABG O2 Saturation ABG Base Excess ABG Potassium ABG Glucose Oxyhemoglobin Sodium 153 H Potassium Chloride 118.3 H Carbon Dioxide 20 L BUN 19 H Creatinine Glucose 113 H POC Glucose 142 H 125 H Lactic Acid Calcium AST Phosphorus Total Protein Albumin C-Reactive Protein Arterial Blood Glucose Arterial Blood Ionized Calcium Urine WBC (Auto) 01/10/20 01/10/20 01/11/20 20:27 22:00 00:45 WBC RBC Hgb Hct MCHC RDW Plt Count Lymph % (Auto) Lymph # Lymph # (Auto) Seg Neutrophils % Seg Neuts % (Manual) Lymphocytes % (Manual) Seg Neutrophils # Seg Neutrophils # Man Nucleated RBC % Lymphocytes # (Manual) Monocytes # (Manual) PT INR Heparin Anti-Xa Level POC ABG pO2 ABG pH POC ABG pCO2 ABG Hemoglobin ABG Oxyhemoglobin ABG pO2 ABG HCO3 ABG O2 Saturation ABG Base Excess ABG Potassium ABG Glucose Oxyhemoglobin Sodium 153 H 154 H Potassium 3.3 L 3.2 L Chloride 117.0 H 118.9 H Carbon Dioxide 20 L BUN Creatinine Glucose POC Glucose 136 H Lactic Acid Calcium 8.3 L 8.0 L AST Phosphorus Total Protein Albumin C-Reactive Protein Arterial Blood Glucose Arterial Blood Ionized Calcium Urine WBC (Auto) 01/11/20 01/11/20 01/11/20 07:06 08:03 11:54 WBC RBC Hgb Hct MCHC RDW Plt Count Lymph % (Auto) Lymph # Lymph # (Auto) Seg Neutrophils % Seg Neuts % (Manual) Lymphocytes % (Manual) Seg Neutrophils # Seg Neutrophils # Man Nucleated RBC % Lymphocytes # (Manual) Monocytes # (Manual) PT INR Heparin Anti-Xa Level POC ABG pO2 ABG pH POC ABG pCO2 ABG Hemoglobin ABG Oxyhemoglobin ABG pO2 ABG HCO3 ABG O2 Saturation ABG Base Excess ABG Potassium ABG Glucose Oxyhemoglobin Sodium 151 H Potassium Chloride 118.7 H Carbon Dioxide 21 L BUN Creatinine Glucose 107 H POC Glucose 118 H 164 H Lactic Acid Calcium 8.3 L AST Phosphorus Total Protein Albumin C-Reactive Protein Arterial Blood Glucose Arterial Blood Ionized Calcium Urine WBC (Auto) 01/11/20 01/12/20 01/12/20 16:28 00:19 05:40 WBC RBC Hgb Hct MCHC RDW Plt Count Lymph % (Auto) Lymph # Lymph # (Auto) Seg Neutrophils % Seg Neuts % (Manual) Lymphocytes % (Manual) Seg Neutrophils # Seg Neutrophils # Man Nucleated RBC % Lymphocytes # (Manual) Monocytes # (Manual) PT INR Heparin Anti-Xa Level POC ABG pO2 ABG pH POC ABG pCO2 ABG Hemoglobin ABG Oxyhemoglobin ABG pO2 ABG HCO3 ABG O2 Saturation ABG Base Excess ABG Potassium ABG Glucose Oxyhemoglobin Sodium 148 H Potassium Chloride 111.6 H Carbon Dioxide 19 L BUN Creatinine Glucose 128 H POC Glucose 132 H 179 H Lactic Acid Calcium 8.2 L AST Phosphorus Total Protein Albumin C-Reactive Protein Arterial Blood Glucose Arterial Blood Ionized Calcium Urine WBC (Auto) 01/12/20 01/12/20 01/12/20 06:17 11:37 17:21 WBC RBC Hgb Hct MCHC RDW Plt Count Lymph % (Auto) Lymph # Lymph # (Auto) Seg Neutrophils % Seg Neuts % (Manual) Lymphocytes % (Manual) Seg Neutrophils # Seg Neutrophils # Man Nucleated RBC % Lymphocytes # (Manual) Monocytes # (Manual) PT INR Heparin Anti-Xa Level POC ABG pO2 ABG pH POC ABG pCO2 ABG Hemoglobin ABG Oxyhemoglobin ABG pO2 ABG HCO3 ABG O2 Saturation ABG Base Excess ABG Potassium ABG Glucose Oxyhemoglobin Sodium Potassium Chloride Carbon Dioxide BUN Creatinine Glucose POC Glucose 140 H 142 H 133 H Lactic Acid Calcium AST Phosphorus Total Protein Albumin C-Reactive Protein Arterial Blood Glucose Arterial Blood Ionized Calcium Urine WBC (Auto) 01/12/20 01/13/20 01/13/20 23:14 05:26 07:00 WBC RBC Hgb Hct MCHC RDW Plt Count Lymph % (Auto) Lymph # Lymph # (Auto) Seg Neutrophils % Seg Neuts % (Manual) Lymphocytes % (Manual) Seg Neutrophils # Seg Neutrophils # Man Nucleated RBC % Lymphocytes # (Manual) Monocytes # (Manual) PT INR Heparin Anti-Xa Level POC ABG pO2 ABG pH POC ABG pCO2 ABG Hemoglobin ABG Oxyhemoglobin ABG pO2 ABG HCO3 ABG O2 Saturation ABG Base Excess ABG Potassium ABG Glucose Oxyhemoglobin Sodium Potassium Chloride 110.0 H Carbon Dioxide BUN Creatinine Glucose 139 H POC Glucose 135 H 162 H Lactic Acid Calcium 7.8 L AST Phosphorus Total Protein Albumin C-Reactive Protein Arterial Blood Glucose Arterial Blood Ionized Calcium Urine WBC (Auto) 01/13/20 01/13/20 01/13/20 12:14 17:52 21:40 WBC RBC Hgb Hct MCHC RDW Plt Count Lymph % (Auto) Lymph # Lymph # (Auto) Seg Neutrophils % Seg Neuts % (Manual) Lymphocytes % (Manual) Seg Neutrophils # Seg Neutrophils # Man Nucleated RBC % Lymphocytes # (Manual) Monocytes # (Manual) PT INR Heparin Anti-Xa Level POC ABG pO2 ABG pH POC ABG pCO2 ABG Hemoglobin ABG Oxyhemoglobin ABG pO2 ABG HCO3 ABG O2 Saturation ABG Base Excess ABG Potassium ABG Glucose Oxyhemoglobin Sodium Potassium Chloride Carbon Dioxide BUN Creatinine Glucose POC Glucose 205 H 172 H 186 H Lactic Acid Calcium AST Phosphorus Total Protein Albumin C-Reactive Protein Arterial Blood Glucose Arterial Blood Ionized Calcium Urine WBC (Auto) 01/14/20 01/14/20 01/14/20 04:28 11:01 11:01 WBC 14.8 H RBC 3.20 L Hgb 9.5 L Hct 28.0 L MCHC RDW Plt Count Lymph % (Auto) Lymph # Lymph # (Auto) Seg Neutrophils % Seg Neuts % (Manual) Lymphocytes % (Manual) Seg Neutrophils # Seg Neutrophils # Man Nucleated RBC % Lymphocytes # (Manual) Monocytes # (Manual) PT INR Heparin Anti-Xa Level POC ABG pO2 ABG pH POC ABG pCO2 ABG Hemoglobin ABG Oxyhemoglobin ABG pO2 ABG HCO3 ABG O2 Saturation ABG Base Excess ABG Potassium ABG Glucose Oxyhemoglobin Sodium Potassium 3.2 L Chloride Carbon Dioxide BUN Creatinine 0.4 L Glucose POC Glucose 115 H Lactic Acid Calcium 8.0 L AST Phosphorus Total Protein Albumin C-Reactive Protein Arterial Blood Glucose Arterial Blood Ionized Calcium Urine WBC (Auto) 01/14/20 01/14/20 01/14/20 11:01 16:33 22:32 WBC RBC Hgb Hct MCHC RDW Plt Count Lymph % (Auto) Lymph # Lymph # (Auto) Seg Neutrophils % Seg Neuts % (Manual) Lymphocytes % (Manual) Seg Neutrophils # Seg Neutrophils # Man Nucleated RBC % Lymphocytes # (Manual) Monocytes # (Manual) PT 15.8 H INR 1.23 H Heparin Anti-Xa Level POC ABG pO2 ABG pH POC ABG pCO2 ABG Hemoglobin ABG Oxyhemoglobin ABG pO2 ABG HCO3 ABG O2 Saturation ABG Base Excess ABG Potassium ABG Glucose Oxyhemoglobin Sodium Potassium Chloride Carbon Dioxide BUN Creatinine Glucose POC Glucose 58 L 188 H Lactic Acid Calcium AST Phosphorus Total Protein Albumin C-Reactive Protein Arterial Blood Glucose Arterial Blood Ionized Calcium Urine WBC (Auto) 01/15/20 01/15/20 01/15/20 05:35 06:19 17:17 WBC RBC Hgb Hct MCHC RDW Plt Count Lymph % (Auto) Lymph # Lymph # (Auto) Seg Neutrophils % Seg Neuts % (Manual) Lymphocytes % (Manual) Seg Neutrophils # Seg Neutrophils # Man Nucleated RBC % Lymphocytes # (Manual) Monocytes # (Manual) PT INR Heparin Anti-Xa Level POC ABG pO2 ABG pH POC ABG pCO2 ABG Hemoglobin ABG Oxyhemoglobin ABG pO2 ABG HCO3 ABG O2 Saturation ABG Base Excess ABG Potassium ABG Glucose Oxyhemoglobin Sodium Potassium Chloride Carbon Dioxide BUN Creatinine 0.5 L Glucose 104 H POC Glucose 106 H 183 H Lactic Acid Calcium 7.8 L AST Phosphorus Total Protein Albumin C-Reactive Protein Arterial Blood Glucose Arterial Blood Ionized Calcium Urine WBC (Auto) 01/15/20 01/16/20 01/16/20 22:29 05:35 05:59 WBC 14.7 H RBC 3.04 L Hgb 9.0 L Hct 27.0 L MCHC RDW Plt Count Lymph % (Auto) 9.1 L Lymph # Lymph # (Auto) Seg Neutrophils % 87.3 H Seg Neuts % (Manual) Lymphocytes % (Manual) Seg Neutrophils # 12.9 H Seg Neutrophils # Man Nucleated RBC % Lymphocytes # (Manual) Monocytes # (Manual) PT INR Heparin Anti-Xa Level POC ABG pO2 ABG pH POC ABG pCO2 ABG Hemoglobin ABG Oxyhemoglobin ABG pO2 ABG HCO3 ABG O2 Saturation ABG Base Excess ABG Potassium ABG Glucose Oxyhemoglobin Sodium Potassium Chloride Carbon Dioxide BUN Creatinine Glucose POC Glucose 228 H 130 H Lactic Acid Calcium AST Phosphorus Total Protein Albumin C-Reactive Protein Arterial Blood Glucose Arterial Blood Ionized Calcium Urine WBC (Auto) 01/16/20 01/16/20 01/16/20 09:52 12:49 17:30 WBC RBC Hgb Hct MCHC RDW Plt Count Lymph % (Auto) Lymph # Lymph # (Auto) Seg Neutrophils % Seg Neuts % (Manual) Lymphocytes % (Manual) Seg Neutrophils # Seg Neutrophils # Man Nucleated RBC % Lymphocytes # (Manual) Monocytes # (Manual) PT INR Heparin Anti-Xa Level POC ABG pO2 ABG pH POC ABG pCO2 ABG Hemoglobin ABG Oxyhemoglobin ABG pO2 ABG HCO3 ABG O2 Saturation ABG Base Excess ABG Potassium ABG Glucose Oxyhemoglobin Sodium Potassium Chloride Carbon Dioxide BUN Creatinine Glucose POC Glucose 122 H 142 H 192 H Lactic Acid Calcium AST Phosphorus Total Protein Albumin C-Reactive Protein Arterial Blood Glucose Arterial Blood Ionized Calcium Urine WBC (Auto) 01/16/20 01/17/20 01/17/20 23:01 08:36 08:36 WBC 12.7 H RBC 2.98 L Hgb 8.9 L Hct 26.4 L MCHC RDW Plt Count Lymph % (Auto) 8.8 L Lymph # 1.1 L Lymph # (Auto) Seg Neutrophils % 86.7 H Seg Neuts % (Manual) Lymphocytes % (Manual) Seg Neutrophils # 11.0 H Seg Neutrophils # Man Nucleated RBC % Lymphocytes # (Manual) Monocytes # (Manual) PT INR Heparin Anti-Xa Level POC ABG pO2 ABG pH POC ABG pCO2 ABG Hemoglobin ABG Oxyhemoglobin ABG pO2 ABG HCO3 ABG O2 Saturation ABG Base Excess ABG Potassium ABG Glucose Oxyhemoglobin Sodium Potassium 3.3 L D Chloride Carbon Dioxide BUN Creatinine 0.4 L Glucose POC Glucose 141 H Lactic Acid Calcium 8.1 L AST Phosphorus Total Protein 4.6 L Albumin 1.6 L C-Reactive Protein Arterial Blood Glucose Arterial Blood Ionized Calcium Urine WBC (Auto) 01/17/20 01/17/20 01/18/20 11:43 23:56 06:27 WBC RBC Hgb Hct MCHC RDW Plt Count Lymph % (Auto) Lymph # Lymph # (Auto) Seg Neutrophils % Seg Neuts % (Manual) Lymphocytes % (Manual) Seg Neutrophils # Seg Neutrophils # Man Nucleated RBC % Lymphocytes # (Manual) Monocytes # (Manual) PT INR Heparin Anti-Xa Level POC ABG pO2 ABG pH POC ABG pCO2 ABG Hemoglobin ABG Oxyhemoglobin ABG pO2 ABG HCO3 ABG O2 Saturation ABG Base Excess ABG Potassium ABG Glucose Oxyhemoglobin Sodium Potassium Chloride Carbon Dioxide BUN Creatinine Glucose POC Glucose 137 H 215 H 122 H Lactic Acid Calcium AST Phosphorus Total Protein Albumin C-Reactive Protein Arterial Blood Glucose Arterial Blood Ionized Calcium Urine WBC (Auto) 01/18/20 01/18/20 01/18/20 07:31 07:31 11:39 WBC 12.1 H RBC 3.23 L Hgb 9.7 L Hct 28.7 L MCHC RDW Plt Count Lymph % (Auto) 9.2 L Lymph # 1.1 L Lymph # (Auto) Seg Neutrophils % 85.0 H Seg Neuts % (Manual) Lymphocytes % (Manual) Seg Neutrophils # 10.3 H Seg Neutrophils # Man Nucleated RBC % Lymphocytes # (Manual) Monocytes # (Manual) PT INR Heparin Anti-Xa Level POC ABG pO2 ABG pH POC ABG pCO2 ABG Hemoglobin ABG Oxyhemoglobin ABG pO2 ABG HCO3 ABG O2 Saturation ABG Base Excess ABG Potassium ABG Glucose Oxyhemoglobin Sodium Potassium Chloride Carbon Dioxide BUN Creatinine 0.4 L Glucose 108 H POC Glucose 172 H Lactic Acid Calcium AST Phosphorus Total Protein 5.3 L Albumin 2.1 L C-Reactive Protein Arterial Blood Glucose Arterial Blood Ionized Calcium Urine WBC (Auto) 01/18/20 01/19/20 01/19/20 18:22 00:15 11:30 WBC RBC Hgb Hct MCHC RDW Plt Count Lymph % (Auto) Lymph # Lymph # (Auto) Seg Neutrophils % Seg Neuts % (Manual) Lymphocytes % (Manual) Seg Neutrophils # Seg Neutrophils # Man Nucleated RBC % Lymphocytes # (Manual) Monocytes # (Manual) PT INR Heparin Anti-Xa Level POC ABG pO2 ABG pH POC ABG pCO2 ABG Hemoglobin ABG Oxyhemoglobin ABG pO2 ABG HCO3 ABG O2 Saturation ABG Base Excess ABG Potassium ABG Glucose Oxyhemoglobin Sodium Potassium Chloride Carbon Dioxide BUN Creatinine Glucose POC Glucose 119 H 135 H 163 H Lactic Acid Calcium AST Phosphorus Total Protein Albumin C-Reactive Protein Arterial Blood Glucose Arterial Blood Ionized Calcium Urine WBC (Auto) 01/19/20 01/19/20 01/20/20 17:44 22:59 03:44 WBC 11.1 H RBC 2.77 L Hgb 8.4 L Hct 25.0 L MCHC RDW Plt Count Lymph % (Auto) Lymph # Lymph # (Auto) Seg Neutrophils % 74.6 H Seg Neuts % (Manual) Lymphocytes % (Manual) Seg Neutrophils # 8.3 H Seg Neutrophils # Man Nucleated RBC % Lymphocytes # (Manual) Monocytes # (Manual) PT INR Heparin Anti-Xa Level POC ABG pO2 ABG pH POC ABG pCO2 ABG Hemoglobin ABG Oxyhemoglobin ABG pO2 ABG HCO3 ABG O2 Saturation ABG Base Excess ABG Potassium ABG Glucose Oxyhemoglobin Sodium Potassium Chloride Carbon Dioxide BUN Creatinine Glucose POC Glucose 161 H 182 H Lactic Acid Calcium AST Phosphorus Total Protein Albumin C-Reactive Protein Arterial Blood Glucose Arterial Blood Ionized Calcium Urine WBC (Auto) 01/20/20 01/21/20 01/21/20 03:44 00:07 05:51 WBC RBC 2.84 L Hgb 8.6 L Hct 25.5 L MCHC RDW Plt Count 463 H Lymph % (Auto) Lymph # Lymph # (Auto) Seg Neutrophils % 76.9 H Seg Neuts % (Manual) Lymphocytes % (Manual) Seg Neutrophils # 7.8 H Seg Neutrophils # Man Nucleated RBC % Lymphocytes # (Manual) Monocytes # (Manual) PT INR Heparin Anti-Xa Level POC ABG pO2 ABG pH POC ABG pCO2 ABG Hemoglobin ABG Oxyhemoglobin ABG pO2 ABG HCO3 ABG O2 Saturation ABG Base Excess ABG Potassium ABG Glucose Oxyhemoglobin Sodium Potassium Chloride Carbon Dioxide BUN Creatinine 0.4 L Glucose POC Glucose 68 L Lactic Acid Calcium 7.9 L AST Phosphorus Total Protein 4.7 L Albumin 1.9 L C-Reactive Protein Arterial Blood Glucose Arterial Blood Ionized Calcium Urine WBC (Auto) 01/21/20 01/21/20 01/21/20 05:51 05:58 11:25 WBC RBC Hgb Hct MCHC RDW Plt Count Lymph % (Auto) Lymph # Lymph # (Auto) Seg Neutrophils % Seg Neuts % (Manual) Lymphocytes % (Manual) Seg Neutrophils # Seg Neutrophils # Man Nucleated RBC % Lymphocytes # (Manual) Monocytes # (Manual) PT INR Heparin Anti-Xa Level POC ABG pO2 ABG pH POC ABG pCO2 ABG Hemoglobin ABG Oxyhemoglobin ABG pO2 ABG HCO3 ABG O2 Saturation ABG Base Excess ABG Potassium ABG Glucose Oxyhemoglobin Sodium Potassium Chloride Carbon Dioxide 20 L BUN Creatinine 0.5 L Glucose 130 H POC Glucose 185 H 163 H Lactic Acid Calcium 7.6 L AST Phosphorus Total Protein 5.0 L Albumin 1.9 L C-Reactive Protein Arterial Blood Glucose Arterial Blood Ionized Calcium Urine WBC (Auto) 01/21/20 01/21/20 01/22/20 16:22 21:17 01:28 WBC RBC 2.60 L Hgb 8.0 L Hct 23.3 L MCHC RDW Plt Count Lymph % (Auto) Lymph # Lymph # (Auto) Seg Neutrophils % 74.8 H Seg Neuts % (Manual) Lymphocytes % (Manual) Seg Neutrophils # Seg Neutrophils # Man Nucleated RBC % Lymphocytes # (Manual) Monocytes # (Manual) PT INR Heparin Anti-Xa Level POC ABG pO2 ABG pH POC ABG pCO2 ABG Hemoglobin ABG Oxyhemoglobin ABG pO2 ABG HCO3 ABG O2 Saturation ABG Base Excess ABG Potassium ABG Glucose Oxyhemoglobin Sodium Potassium Chloride Carbon Dioxide BUN Creatinine Glucose POC Glucose 177 H 67 L Lactic Acid Calcium AST Phosphorus Total Protein Albumin C-Reactive Protein Arterial Blood Glucose Arterial Blood Ionized Calcium Urine WBC (Auto) 01/22/20 01/22/20 01/22/20 01:28 01:28 12:06 WBC RBC Hgb Hct MCHC RDW Plt Count Lymph % (Auto) Lymph # Lymph # (Auto) Seg Neutrophils % Seg Neuts % (Manual) Lymphocytes % (Manual) Seg Neutrophils # Seg Neutrophils # Man Nucleated RBC % Lymphocytes # (Manual) Monocytes # (Manual) PT INR Heparin Anti-Xa Level POC ABG pO2 ABG pH POC ABG pCO2 ABG Hemoglobin ABG Oxyhemoglobin ABG pO2 ABG HCO3 ABG O2 Saturation ABG Base Excess ABG Potassium ABG Glucose Oxyhemoglobin Sodium Potassium Chloride 107.6 H Carbon Dioxide BUN Creatinine 0.4 L Glucose 152 H POC Glucose 203 H 140 H Lactic Acid Calcium 7.5 L AST Phosphorus Total Protein 4.0 L Albumin 2.0 L C-Reactive Protein Arterial Blood Glucose Arterial Blood Ionized Calcium Urine WBC (Auto) 01/22/20 01/22/20 01/23/20 16:24 22:55 06:10 WBC RBC 2.68 L Hgb 8.6 L Hct 24.1 L MCHC 36 H RDW Plt Count Lymph % (Auto) Lymph # Lymph # (Auto) Seg Neutrophils % Seg Neuts % (Manual) 71.0 H Lymphocytes % (Manual) Seg Neutrophils # Seg Neutrophils # Man Nucleated RBC % Lymphocytes # (Manual) Monocytes # (Manual) PT INR Heparin Anti-Xa Level POC ABG pO2 ABG pH POC ABG pCO2 ABG Hemoglobin ABG Oxyhemoglobin ABG pO2 ABG HCO3 ABG O2 Saturation ABG Base Excess ABG Potassium ABG Glucose Oxyhemoglobin Sodium Potassium Chloride Carbon Dioxide BUN Creatinine Glucose POC Glucose 205 H 196 H Lactic Acid Calcium AST Phosphorus Total Protein Albumin C-Reactive Protein Arterial Blood Glucose Arterial Blood Ionized Calcium Urine WBC (Auto) 01/23/20 01/23/20 01/23/20 06:10 07:35 11:59 WBC RBC Hgb Hct MCHC RDW Plt Count Lymph % (Auto) Lymph # Lymph # (Auto) Seg Neutrophils % Seg Neuts % (Manual) Lymphocytes % (Manual) Seg Neutrophils # Seg Neutrophils # Man Nucleated RBC % Lymphocytes # (Manual) Monocytes # (Manual) PT INR Heparin Anti-Xa Level POC ABG pO2 ABG pH POC ABG pCO2 ABG Hemoglobin ABG Oxyhemoglobin ABG pO2 ABG HCO3 ABG O2 Saturation ABG Base Excess ABG Potassium ABG Glucose Oxyhemoglobin Sodium Potassium Chloride 108.8 H Carbon Dioxide BUN Creatinine 0.4 L Glucose 105 H POC Glucose 111 H 123 H Lactic Acid Calcium 8.0 L AST Phosphorus Total Protein 4.9 L D Albumin 2.0 L C-Reactive Protein Arterial Blood Glucose Arterial Blood Ionized Calcium Urine WBC (Auto) 01/23/20 01/24/20 01/24/20 22:45 11:24 16:41 WBC RBC Hgb Hct MCHC RDW Plt Count Lymph % (Auto) Lymph # Lymph # (Auto) Seg Neutrophils % Seg Neuts % (Manual) Lymphocytes % (Manual) Seg Neutrophils # Seg Neutrophils # Man Nucleated RBC % Lymphocytes # (Manual) Monocytes # (Manual) PT INR Heparin Anti-Xa Level POC ABG pO2 ABG pH POC ABG pCO2 ABG Hemoglobin ABG Oxyhemoglobin ABG pO2 ABG HCO3 ABG O2 Saturation ABG Base Excess ABG Potassium ABG Glucose Oxyhemoglobin Sodium Potassium Chloride Carbon Dioxide BUN Creatinine Glucose POC Glucose 180 H 182 H 177 H Lactic Acid Calcium AST Phosphorus Total Protein Albumin C-Reactive Protein Arterial Blood Glucose Arterial Blood Ionized Calcium Urine WBC (Auto) 01/24/20 01/25/20 01/25/20 23:11 07:12 11:35 WBC RBC Hgb Hct MCHC RDW Plt Count Lymph % (Auto) Lymph # Lymph # (Auto) Seg Neutrophils % Seg Neuts % (Manual) Lymphocytes % (Manual) Seg Neutrophils # Seg Neutrophils # Man Nucleated RBC % Lymphocytes # (Manual) Monocytes # (Manual) PT INR Heparin Anti-Xa Level POC ABG pO2 ABG pH POC ABG pCO2 ABG Hemoglobin ABG Oxyhemoglobin ABG pO2 ABG HCO3 ABG O2 Saturation ABG Base Excess ABG Potassium ABG Glucose Oxyhemoglobin Sodium Potassium Chloride Carbon Dioxide BUN Creatinine Glucose POC Glucose 142 H 135 H 142 H Lactic Acid Calcium AST Phosphorus Total Protein Albumin C-Reactive Protein Arterial Blood Glucose Arterial Blood Ionized Calcium Urine WBC (Auto) 01/25/20 01/26/20 01/26/20 16:33 00:04 11:35 WBC RBC Hgb Hct MCHC RDW Plt Count Lymph % (Auto) Lymph # Lymph # (Auto) Seg Neutrophils % Seg Neuts % (Manual) Lymphocytes % (Manual) Seg Neutrophils # Seg Neutrophils # Man Nucleated RBC % Lymphocytes # (Manual) Monocytes # (Manual) PT INR Heparin Anti-Xa Level POC ABG pO2 ABG pH POC ABG pCO2 ABG Hemoglobin ABG Oxyhemoglobin ABG pO2 ABG HCO3 ABG O2 Saturation ABG Base Excess ABG Potassium ABG Glucose Oxyhemoglobin Sodium Potassium Chloride Carbon Dioxide BUN Creatinine Glucose POC Glucose 247 H 233 H 200 H Lactic Acid Calcium AST Phosphorus Total Protein Albumin C-Reactive Protein Arterial Blood Glucose Arterial Blood Ionized Calcium Urine WBC (Auto) 01/26/20 01/26/20 01/26/20 16:30 16:30 17:19 WBC RBC Hgb 7.4 L Hct 22.0 L MCHC RDW Plt Count Lymph % (Auto) Lymph # Lymph # (Auto) Seg Neutrophils % Seg Neuts % (Manual) Lymphocytes % (Manual) Seg Neutrophils # Seg Neutrophils # Man Nucleated RBC % Lymphocytes # (Manual) Monocytes # (Manual) PT 18.4 H INR 1.50 H Heparin Anti-Xa Level POC ABG pO2 ABG pH POC ABG pCO2 ABG Hemoglobin ABG Oxyhemoglobin ABG pO2 ABG HCO3 ABG O2 Saturation ABG Base Excess ABG Potassium ABG Glucose Oxyhemoglobin Sodium Potassium Chloride Carbon Dioxide BUN Creatinine Glucose POC Glucose 67 L Lactic Acid Calcium AST Phosphorus Total Protein Albumin C-Reactive Protein Arterial Blood Glucose Arterial Blood Ionized Calcium Urine WBC (Auto) 01/26/20 01/26/20 01/27/20 20:24 21:32 00:16 WBC RBC Hgb Hct MCHC RDW Plt Count Lymph % (Auto) Lymph # Lymph # (Auto) Seg Neutrophils % Seg Neuts % (Manual) Lymphocytes % (Manual) Seg Neutrophils # Seg Neutrophils # Man Nucleated RBC % Lymphocytes # (Manual) Monocytes # (Manual) PT INR Heparin Anti-Xa Level POC ABG pO2 51.8 L ABG pH POC ABG pCO2 ABG Hemoglobin 8.5 L ABG Oxyhemoglobin 84.7 L ABG pO2 ABG HCO3 ABG O2 Saturation ABG Base Excess ABG Potassium ABG Glucose Oxyhemoglobin Sodium Potassium Chloride Carbon Dioxide BUN Creatinine Glucose POC Glucose 162 H 141 H Lactic Acid Calcium AST Phosphorus Total Protein Albumin C-Reactive Protein Arterial Blood Glucose Arterial Blood Ionized Calcium Urine WBC (Auto) 01/27/20 01/27/20 01/27/20 01:42 02:18 05:57 WBC RBC Hgb Hct MCHC RDW Plt Count Lymph % (Auto) Lymph # Lymph # (Auto) Seg Neutrophils % Seg Neuts % (Manual) Lymphocytes % (Manual) Seg Neutrophils # Seg Neutrophils # Man Nucleated RBC % Lymphocytes # (Manual) Monocytes # (Manual) PT INR Heparin Anti-Xa Level 2.00 H POC ABG pO2 ABG pH POC ABG pCO2 ABG Hemoglobin ABG Oxyhemoglobin ABG pO2 ABG HCO3 ABG O2 Saturation ABG Base Excess ABG Potassium ABG Glucose Oxyhemoglobin Sodium Potassium Chloride Carbon Dioxide BUN Creatinine Glucose POC Glucose 183 H 124 H Lactic Acid Calcium AST Phosphorus Total Protein Albumin C-Reactive Protein Arterial Blood Glucose Arterial Blood Ionized Calcium Urine WBC (Auto) 01/27/20 01/27/20 01/27/20 06:30 06:30 12:23 WBC RBC 2.75 L Hgb 8.4 L Hct 24.9 L MCHC RDW 16.0 H Plt Count 474 H Lymph % (Auto) 12.7 L Lymph # Lymph # (Auto) Seg Neutrophils % 83.2 H Seg Neuts % (Manual) Lymphocytes % (Manual) Seg Neutrophils # 8.4 H Seg Neutrophils # Man Nucleated RBC % Lymphocytes # (Manual) Monocytes # (Manual) PT INR Heparin Anti-Xa Level POC ABG pO2 ABG pH POC ABG pCO2 ABG Hemoglobin ABG Oxyhemoglobin ABG pO2 ABG HCO3 ABG O2 Saturation ABG Base Excess ABG Potassium ABG Glucose Oxyhemoglobin Sodium Potassium 3.5 L Chloride 110.2 H Carbon Dioxide BUN Creatinine 0.4 L Glucose 101 H POC Glucose 126 H Lactic Acid Calcium 7.8 L AST Phosphorus Total Protein Albumin C-Reactive Protein Arterial Blood Glucose Arterial Blood Ionized Calcium Urine WBC (Auto) 01/27/20 01/27/20 01/28/20 17:31 23:40 00:00 WBC RBC Hgb Hct MCHC RDW Plt Count Lymph % (Auto) Lymph # Lymph # (Auto) Seg Neutrophils % Seg Neuts % (Manual) Lymphocytes % (Manual) Seg Neutrophils # Seg Neutrophils # Man Nucleated RBC % Lymphocytes # (Manual) Monocytes # (Manual) PT INR Heparin Anti-Xa Level 2.00 H POC ABG pO2 ABG pH POC ABG pCO2 ABG Hemoglobin ABG Oxyhemoglobin ABG pO2 ABG HCO3 ABG O2 Saturation ABG Base Excess ABG Potassium ABG Glucose Oxyhemoglobin Sodium Potassium Chloride Carbon Dioxide BUN Creatinine Glucose POC Glucose 133 H 136 H Lactic Acid Calcium AST Phosphorus Total Protein Albumin C-Reactive Protein Arterial Blood Glucose Arterial Blood Ionized Calcium Urine WBC (Auto) 01/28/20 01/28/20 01/28/20 04:26 04:26 05:35 WBC RBC Hgb 9.6 L Hct 28.5 L MCHC RDW Plt Count 508 H Lymph % (Auto) Lymph # Lymph # (Auto) Seg Neutrophils % Seg Neuts % (Manual) Lymphocytes % (Manual) Seg Neutrophils # Seg Neutrophils # Man Nucleated RBC % Lymphocytes # (Manual) Monocytes # (Manual) PT INR Heparin Anti-Xa Level POC ABG pO2 ABG pH POC ABG pCO2 ABG Hemoglobin ABG Oxyhemoglobin ABG pO2 ABG HCO3 ABG O2 Saturation ABG Base Excess ABG Potassium ABG Glucose Oxyhemoglobin Sodium Potassium Chloride Carbon Dioxide 19 L BUN 20 H Creatinine 0.5 L Glucose 103 H POC Glucose 135 H Lactic Acid Calcium 7.9 L AST Phosphorus Total Protein Albumin C-Reactive Protein Arterial Blood Glucose Arterial Blood Ionized Calcium Urine WBC (Auto) 01/28/20 01/28/20 01/28/20 08:50 11:10 11:51 WBC RBC Hgb Hct MCHC RDW Plt Count Lymph % (Auto) Lymph # Lymph # (Auto) Seg Neutrophils % Seg Neuts % (Manual) Lymphocytes % (Manual) Seg Neutrophils # Seg Neutrophils # Man Nucleated RBC % Lymphocytes # (Manual) Monocytes # (Manual) PT INR Heparin Anti-Xa Level 0.74 H POC ABG pO2 67.2 L ABG pH POC ABG pCO2 ABG Hemoglobin 9.3 L ABG Oxyhemoglobin ABG pO2 ABG HCO3 ABG O2 Saturation ABG Base Excess ABG Potassium ABG Glucose Oxyhemoglobin Sodium Potassium Chloride Carbon Dioxide BUN Creatinine Glucose POC Glucose 160 H Lactic Acid Calcium AST Phosphorus Total Protein Albumin C-Reactive Protein Arterial Blood Glucose Arterial Blood Ionized Calcium Urine WBC (Auto) 01/28/20 01/28/20 01/29/20 17:19 23:53 03:52 WBC RBC Hgb Hct MCHC RDW Plt Count Lymph % (Auto) Lymph # Lymph # (Auto) Seg Neutrophils % Seg Neuts % (Manual) Lymphocytes % (Manual) Seg Neutrophils # Seg Neutrophils # Man Nucleated RBC % Lymphocytes # (Manual) Monocytes # (Manual) PT INR Heparin Anti-Xa Level POC ABG pO2 ABG pH 7.510 H POC ABG pCO2 ABG Hemoglobin 7.3 L ABG Oxyhemoglobin ABG pO2 357.0 H ABG HCO3 19.6 L ABG O2 Saturation 99.6 H ABG Base Excess -2.9 L ABG Potassium ABG Glucose Oxyhemoglobin Sodium Potassium Chloride Carbon Dioxide BUN Creatinine Glucose POC Glucose 177 H 142 H Lactic Acid Calcium AST Phosphorus Total Protein Albumin C-Reactive Protein Arterial Blood Glucose Arterial Blood Ionized Calcium Urine WBC (Auto) 01/29/20 01/29/20 01/29/20 04:58 04:58 06:01 WBC 13.1 H RBC 2.75 L Hgb 8.6 L Hct 25.6 L MCHC RDW 17.7 H Plt Count Lymph % (Auto) Lymph # Lymph # (Auto) Seg Neutrophils % Seg Neuts % (Manual) 91.0 H Lymphocytes % (Manual) 6.0 L Seg Neutrophils # Seg Neutrophils # Man 11.9 H Nucleated RBC % 1.0 H Lymphocytes # (Manual) 0.8 L Monocytes # (Manual) PT INR Heparin Anti-Xa Level POC ABG pO2 ABG pH POC ABG pCO2 ABG Hemoglobin ABG Oxyhemoglobin ABG pO2 ABG HCO3 ABG O2 Saturation ABG Base Excess ABG Potassium ABG Glucose Oxyhemoglobin Sodium 148 H Potassium 3.5 L D Chloride 113.2 H Carbon Dioxide 21 L BUN 20 H Creatinine Glucose 137 H POC Glucose 167 H Lactic Acid Calcium 8.1 L AST Phosphorus Total Protein Albumin C-Reactive Protein Arterial Blood Glucose Arterial Blood Ionized Calcium Urine WBC (Auto) 01/29/20 01/29/20 01/29/20 11:45 17:52 23:49 WBC RBC Hgb Hct MCHC RDW Plt Count Lymph % (Auto) Lymph # Lymph # (Auto) Seg Neutrophils % Seg Neuts % (Manual) Lymphocytes % (Manual) Seg Neutrophils # Seg Neutrophils # Man Nucleated RBC % Lymphocytes # (Manual) Monocytes # (Manual) PT INR Heparin Anti-Xa Level POC ABG pO2 ABG pH POC ABG pCO2 ABG Hemoglobin ABG Oxyhemoglobin ABG pO2 ABG HCO3 ABG O2 Saturation ABG Base Excess ABG Potassium ABG Glucose Oxyhemoglobin Sodium Potassium Chloride Carbon Dioxide BUN Creatinine Glucose POC Glucose 185 H 226 H 141 H Lactic Acid Calcium AST Phosphorus Total Protein Albumin C-Reactive Protein Arterial Blood Glucose Arterial Blood Ionized Calcium Urine WBC (Auto) 01/29/20 01/30/20 01/30/20 Unknown 03:24 04:00 WBC RBC Hgb 7.8 L Hct 23.5 L MCHC RDW Plt Count Lymph % (Auto) Lymph # Lymph # (Auto) Seg Neutrophils % Seg Neuts % (Manual) Lymphocytes % (Manual) Seg Neutrophils # Seg Neutrophils # Man Nucleated RBC % Lymphocytes # (Manual) Monocytes # (Manual) PT INR Heparin Anti-Xa Level POC ABG pO2 ABG pH 7.485 H POC ABG pCO2 ABG Hemoglobin 6.7 L ABG Oxyhemoglobin ABG pO2 102.0 H ABG HCO3 ABG O2 Saturation ABG Base Excess ABG Potassium ABG Glucose Oxyhemoglobin Sodium Potassium Chloride Carbon Dioxide BUN Creatinine Glucose POC Glucose Lactic Acid Calcium AST Phosphorus Total Protein Albumin C-Reactive Protein 14.80 H Arterial Blood Glucose Arterial Blood Ionized Calcium Urine WBC (Auto) 01/30/20 01/30/20 01/30/20 05:50 11:15 17:07 WBC RBC Hgb Hct MCHC RDW Plt Count Lymph % (Auto) Lymph # Lymph # (Auto) Seg Neutrophils % Seg Neuts % (Manual) Lymphocytes % (Manual) Seg Neutrophils # Seg Neutrophils # Man Nucleated RBC % Lymphocytes # (Manual) Monocytes # (Manual) PT INR Heparin Anti-Xa Level POC ABG pO2 ABG pH POC ABG pCO2 ABG Hemoglobin ABG Oxyhemoglobin ABG pO2 ABG HCO3 ABG O2 Saturation ABG Base Excess ABG Potassium ABG Glucose Oxyhemoglobin Sodium Potassium Chloride Carbon Dioxide BUN Creatinine Glucose POC Glucose 122 H 207 H 124 H Lactic Acid Calcium AST Phosphorus Total Protein Albumin C-Reactive Protein Arterial Blood Glucose Arterial Blood Ionized Calcium Urine WBC (Auto) 01/30/20 01/31/20 01/31/20 17:08 00:10 04:52 WBC RBC Hgb Hct MCHC RDW Plt Count Lymph % (Auto) Lymph # Lymph # (Auto) Seg Neutrophils % Seg Neuts % (Manual) Lymphocytes % (Manual) Seg Neutrophils # Seg Neutrophils # Man Nucleated RBC % Lymphocytes # (Manual) Monocytes # (Manual) PT INR Heparin Anti-Xa Level POC ABG pO2 ABG pH 7.504 H 7.486 H POC ABG pCO2 ABG Hemoglobin 7.4 L 6.2 L ABG Oxyhemoglobin ABG pO2 169.2 H 121.7 H ABG HCO3 27.1 H ABG O2 Saturation 99.1 H ABG Base Excess 3.4 H ABG Potassium ABG Glucose Oxyhemoglobin Sodium Potassium Chloride Carbon Dioxide BUN Creatinine Glucose POC Glucose 191 H Lactic Acid Calcium AST Phosphorus Total Protein Albumin C-Reactive Protein Arterial Blood Glucose Arterial Blood Ionized Calcium Urine WBC (Auto) 01/31/20 01/31/20 01/31/20 05:37 11:59 12:40 WBC RBC 2.41 L Hgb 7.5 L Hct 22.3 L MCHC RDW 22.2 H Plt Count Lymph % (Auto) Lymph # Lymph # (Auto) Seg Neutrophils % Seg Neuts % (Manual) 94.0 H Lymphocytes % (Manual) 2.0 L Seg Neutrophils # Seg Neutrophils # Man 9.4 H Nucleated RBC % Lymphocytes # (Manual) 0.2 L Monocytes # (Manual) PT INR Heparin Anti-Xa Level POC ABG pO2 ABG pH POC ABG pCO2 ABG Hemoglobin ABG Oxyhemoglobin ABG pO2 ABG HCO3 ABG O2 Saturation ABG Base Excess ABG Potassium ABG Glucose Oxyhemoglobin Sodium Potassium Chloride Carbon Dioxide BUN Creatinine Glucose POC Glucose 175 H 220 H Lactic Acid Calcium AST Phosphorus Total Protein Albumin C-Reactive Protein Arterial Blood Glucose Arterial Blood Ionized Calcium Urine WBC (Auto) 01/31/20 01/31/20 01/31/20 12:40 14:40 18:18 WBC RBC Hgb Hct MCHC RDW Plt Count Lymph % (Auto) Lymph # Lymph # (Auto) Seg Neutrophils % Seg Neuts % (Manual) Lymphocytes % (Manual) Seg Neutrophils # Seg Neutrophils # Man Nucleated RBC % Lymphocytes # (Manual) Monocytes # (Manual) PT INR Heparin Anti-Xa Level POC ABG pO2 124.7 H ABG pH 7.542 H POC ABG pCO2 ABG Hemoglobin 7.8 L ABG Oxyhemoglobin ABG pO2 ABG HCO3 ABG O2 Saturation ABG Base Excess ABG Potassium ABG Glucose Oxyhemoglobin Sodium 151 H Potassium 2.1 L* D Chloride 108.9 H Carbon Dioxide BUN 22 H Creatinine Glucose 194 H POC Glucose 181 H Lactic Acid Calcium 8.1 L AST Phosphorus Total Protein 4.8 L Albumin 2.3 L C-Reactive Protein Arterial Blood Glucose Arterial Blood Ionized Calcium Urine WBC (Auto) 02/01/20 02/01/20 02/01/20 00:11 03:14 04:32 WBC 11.9 H RBC 2.47 L Hgb 7.6 L Hct 22.8 L MCHC RDW 22.7 H Plt Count Lymph % (Auto) Lymph # Lymph # (Auto) Seg Neutrophils % Seg Neuts % (Manual) 90.0 H Lymphocytes % (Manual) 5.0 L Seg Neutrophils # Seg Neutrophils # Man 10.7 H Nucleated RBC % Lymphocytes # (Manual) 0.6 L Monocytes # (Manual) PT INR Heparin Anti-Xa Level POC ABG pO2 ABG pH 7.564 H POC ABG pCO2 ABG Hemoglobin 7.6 L ABG Oxyhemoglobin ABG pO2 124.1 H ABG HCO3 29.6 H ABG O2 Saturation ABG Base Excess 7.0 H ABG Potassium ABG Glucose Oxyhemoglobin Sodium Potassium Chloride Carbon Dioxide BUN Creatinine Glucose POC Glucose 190 H Lactic Acid Calcium AST Phosphorus Total Protein Albumin C-Reactive Protein Arterial Blood Glucose Arterial Blood Ionized Calcium Urine WBC (Auto) 02/01/20 02/01/20 02/01/20 04:32 05:28 11:56 WBC RBC Hgb Hct MCHC RDW Plt Count Lymph % (Auto) Lymph # Lymph # (Auto) Seg Neutrophils % Seg Neuts % (Manual) Lymphocytes % (Manual) Seg Neutrophils # Seg Neutrophils # Man Nucleated RBC % Lymphocytes # (Manual) Monocytes # (Manual) PT INR Heparin Anti-Xa Level POC ABG pO2 ABG pH POC ABG pCO2 ABG Hemoglobin ABG Oxyhemoglobin ABG pO2 ABG HCO3 ABG O2 Saturation ABG Base Excess ABG Potassium ABG Glucose Oxyhemoglobin Sodium 149 H Potassium 2.6 L* D Chloride Carbon Dioxide 33 H BUN 23 H Creatinine 0.5 L Glucose 174 H POC Glucose 187 H 195 H Lactic Acid Calcium 8.0 L AST Phosphorus 1.60 L Total Protein Albumin C-Reactive Protein Arterial Blood Glucose Arterial Blood Ionized Calcium Urine WBC (Auto) 02/01/20 02/01/20 02/02/20 18:15 23:35 04:33 WBC RBC Hgb Hct MCHC RDW Plt Count Lymph % (Auto) Lymph # Lymph # (Auto) Seg Neutrophils % Seg Neuts % (Manual) Lymphocytes % (Manual) Seg Neutrophils # Seg Neutrophils # Man Nucleated RBC % Lymphocytes # (Manual) Monocytes # (Manual) PT INR Heparin Anti-Xa Level POC ABG pO2 ABG pH 7.549 H POC ABG pCO2 ABG Hemoglobin 9.8 L ABG Oxyhemoglobin ABG pO2 ABG HCO3 ABG O2 Saturation ABG Base Excess ABG Potassium ABG Glucose Oxyhemoglobin Sodium Potassium Chloride Carbon Dioxide BUN Creatinine Glucose POC Glucose 226 H 252 H Lactic Acid Calcium AST Phosphorus Total Protein Albumin C-Reactive Protein Arterial Blood Glucose Arterial Blood Ionized Calcium Urine WBC (Auto) 02/02/20 02/02/20 02/02/20 05:25 05:25 05:40 WBC 15.5 H RBC 2.43 L Hgb 7.6 L Hct 22.9 L MCHC RDW 23.6 H Plt Count Lymph % (Auto) Lymph # Lymph # (Auto) Seg Neutrophils % Seg Neuts % (Manual) 89.0 H Lymphocytes % (Manual) 3.0 L Seg Neutrophils # Seg Neutrophils # Man 13.8 H Nucleated RBC % Lymphocytes # (Manual) 0.5 L Monocytes # (Manual) 0.9 H PT INR Heparin Anti-Xa Level POC ABG pO2 ABG pH POC ABG pCO2 ABG Hemoglobin ABG Oxyhemoglobin ABG pO2 ABG HCO3 ABG O2 Saturation ABG Base Excess ABG Potassium ABG Glucose Oxyhemoglobin Sodium Potassium 2.6 L* Chloride Carbon Dioxide 33 H BUN 26 H Creatinine Glucose 175 H POC Glucose 181 H Lactic Acid Calcium 7.9 L AST Phosphorus Total Protein Albumin C-Reactive Protein Arterial Blood Glucose Arterial Blood Ionized Calcium Urine WBC (Auto) 02/02/20 02/02/2020 11:55 14:45 17:18 WBC RBC Hgb Hct MCHC RDW Plt Count Lymph % (Auto) Lymph # Lymph # (Auto) Seg Neutrophils % Seg Neuts % (Manual) Lymphocytes % (Manual) Seg Neutrophils # Seg Neutrophils # Man Nucleated RBC % Lymphocytes # (Manual) Monocytes # (Manual) PT INR Heparin Anti-Xa Level POC ABG pO2 ABG pH 7.56 H POC ABG pCO2 ABG Hemoglobin 7.6 L ABG Oxyhemoglobin ABG pO2 ABG HCO3 ABG O2 Saturation ABG Base Excess ABG Potassium ABG Glucose Oxyhemoglobin Sodium Potassium Chloride Carbon Dioxide BUN Creatinine Glucose POC Glucose 226 H 227 H Lactic Acid Calcium AST Phosphorus Total Protein Albumin C-Reactive Protein Arterial Blood Glucose Arterial Blood Ionized Calcium Urine WBC (Auto) 02/02/20 02/03/20 02/03/20 20:54 00:02 05:14 WBC 18.7 H RBC 2.45 L Hgb 7.6 L Hct 23.2 L MCHC RDW 23.5 H Plt Count Lymph % (Auto) Lymph # Lymph # (Auto) Seg Neutrophils % Seg Neuts % (Manual) 94.0 H Lymphocytes % (Manual) 3.0 L Seg Neutrophils # Seg Neutrophils # Man 17.6 H Nucleated RBC % Lymphocytes # (Manual) 0.6 L Monocytes # (Manual) PT INR Heparin Anti-Xa Level POC ABG pO2 ABG pH POC ABG pCO2 ABG Hemoglobin ABG Oxyhemoglobin ABG pO2 ABG HCO3 ABG O2 Saturation ABG Base Excess ABG Potassium ABG Glucose Oxyhemoglobin Sodium Potassium 3.2 L D Chloride Carbon Dioxide BUN Creatinine Glucose POC Glucose 204 H Lactic Acid Calcium AST Phosphorus Total Protein Albumin C-Reactive Protein Arterial Blood Glucose Arterial Blood Ionized Calcium Urine WBC (Auto) 02/03/20 02/03/20 02/03/20 05:14 05:14 05:20 WBC RBC Hgb Hct MCHC RDW Plt Count Lymph % (Auto) Lymph # Lymph # (Auto) Seg Neutrophils % Seg Neuts % (Manual) Lymphocytes % (Manual) Seg Neutrophils # Seg Neutrophils # Man Nucleated RBC % Lymphocytes # (Manual) Monocytes # (Manual) PT INR Heparin Anti-Xa Level POC ABG pO2 ABG pH POC ABG pCO2 ABG Hemoglobin ABG Oxyhemoglobin ABG pO2 ABG HCO3 ABG O2 Saturation ABG Base Excess ABG Potassium ABG Glucose Oxyhemoglobin Sodium Potassium 3.1 L Chloride Carbon Dioxide 33 H BUN 29 H Creatinine 0.5 L Glucose 160 H POC Glucose 146 H Lactic Acid Calcium 7.9 L AST Phosphorus 2.30 L Total Protein 4.8 L Albumin 2.4 L C-Reactive Protein Arterial Blood Glucose Arterial Blood Ionized Calcium Urine WBC (Auto) 02/03/20 02/03/20 02/03/20 12:35 18:14 23:26 WBC RBC Hgb Hct MCHC RDW Plt Count Lymph % (Auto) Lymph # Lymph # (Auto) Seg Neutrophils % Seg Neuts % (Manual) Lymphocytes % (Manual) Seg Neutrophils # Seg Neutrophils # Man Nucleated RBC % Lymphocytes # (Manual) Monocytes # (Manual) PT INR Heparin Anti-Xa Level POC ABG pO2 ABG pH POC ABG pCO2 ABG Hemoglobin ABG Oxyhemoglobin ABG pO2 ABG HCO3 ABG O2 Saturation ABG Base Excess ABG Potassium ABG Glucose Oxyhemoglobin Sodium Potassium Chloride Carbon Dioxide BUN Creatinine Glucose POC Glucose 219 H 248 H 173 H Lactic Acid Calcium AST Phosphorus Total Protein Albumin C-Reactive Protein Arterial Blood Glucose Arterial Blood Ionized Calcium Urine WBC (Auto) 02/04/20 02/04/20 02/04/20 05:34 05:36 06:51 WBC RBC Hgb Hct MCHC RDW Plt Count Lymph % (Auto) Lymph # Lymph # (Auto) Seg Neutrophils % Seg Neuts % (Manual) Lymphocytes % (Manual) Seg Neutrophils # Seg Neutrophils # Man Nucleated RBC % Lymphocytes # (Manual) Monocytes # (Manual) PT INR Heparin Anti-Xa Level POC ABG pO2 ABG pH POC ABG pCO2 ABG Hemoglobin ABG Oxyhemoglobin ABG pO2 ABG HCO3 ABG O2 Saturation ABG Base Excess ABG Potassium ABG Glucose Oxyhemoglobin Sodium Potassium Chloride Carbon Dioxide BUN Creatinine Glucose POC Glucose 56 L 64 L 127 H Lactic Acid Calcium AST Phosphorus Total Protein Albumin C-Reactive Protein Arterial Blood Glucose Arterial Blood Ionized Calcium Urine WBC (Auto) 02/04/20 02/04/20 02/04/20 11:57 13:42 13:53 WBC 19.2 H RBC 2.48 L Hgb 7.8 L Hct 23.5 L MCHC RDW 24.2 H Plt Count Lymph % (Auto) Lymph # Lymph # (Auto) Seg Neutrophils % Seg Neuts % (Manual) 97.0 H Lymphocytes % (Manual) 2.0 L Seg Neutrophils # Seg Neutrophils # Man 18.6 H Nucleated RBC % Lymphocytes # (Manual) 0.4 L Monocytes # (Manual) PT INR Heparin Anti-Xa Level POC ABG pO2 118.2 H ABG pH 7.525 H POC ABG pCO2 ABG Hemoglobin 8.7 L ABG Oxyhemoglobin ABG pO2 ABG HCO3 ABG O2 Saturation ABG Base Excess ABG Potassium 2.8 L ABG Glucose 185 H Oxyhemoglobin Sodium Potassium Chloride Carbon Dioxide BUN Creatinine Glucose POC Glucose 224 H Lactic Acid Calcium AST Phosphorus Total Protein Albumin C-Reactive Protein Arterial Blood Glucose 185 H Arterial Blood Ionized Calcium 4.5 L Urine WBC (Auto) 02/04/20 02/04/20 02/04/20 13:53 18:15 23:35 WBC RBC Hgb Hct MCHC RDW Plt Count Lymph % (Auto) Lymph # Lymph # (Auto) Seg Neutrophils % Seg Neuts % (Manual) Lymphocytes % (Manual) Seg Neutrophils # Seg Neutrophils # Man Nucleated RBC % Lymphocytes # (Manual) Monocytes # (Manual) PT INR Heparin Anti-Xa Level POC ABG pO2 ABG pH POC ABG pCO2 ABG Hemoglobin ABG Oxyhemoglobin ABG pO2 ABG HCO3 ABG O2 Saturation ABG Base Excess ABG Potassium ABG Glucose Oxyhemoglobin Sodium 147 H Potassium 2.8 L* Chloride Carbon Dioxide 38 H BUN 33 H Creatinine 0.5 L Glucose 202 H POC Glucose 215 H 197 H Lactic Acid Calcium AST Phosphorus Total Protein Albumin C-Reactive Protein Arterial Blood Glucose Arterial Blood Ionized Calcium Urine WBC (Auto) 02/05/20 02/05/20 02/05/20 01:03 04:00 04:00 WBC 26.7 H RBC 2.59 L Hgb 8.1 L Hct 24.6 L MCHC RDW 24.1 H Plt Count Lymph % (Auto) 1.6 L Lymph # Lymph # (Auto) 0.4 L Seg Neutrophils % Seg Neuts % (Manual) Lymphocytes % (Manual) Seg Neutrophils # 25.9 H Seg Neutrophils # Man Nucleated RBC % Lymphocytes # (Manual) Monocytes # (Manual) PT INR Heparin Anti-Xa Level POC ABG pO2 ABG pH POC ABG pCO2 ABG Hemoglobin 7.1 L ABG Oxyhemoglobin ABG pO2 50.7 L ABG HCO3 29.6 H ABG O2 Saturation 82.7 L ABG Base Excess 4.8 H ABG Potassium ABG Glucose Oxyhemoglobin 81.0 L Sodium 146 H Potassium Chloride Carbon Dioxide 32 H BUN 35 H Creatinine 0.5 L Glucose 226 H POC Glucose Lactic Acid Calcium AST Phosphorus Total Protein 5.1 L Albumin 2.2 L C-Reactive Protein Arterial Blood Glucose Arterial Blood Ionized Calcium Urine WBC (Auto) 02/05/20 02/05/20 02/06/20 05:32 17:56 00:19 WBC RBC Hgb Hct MCHC RDW Plt Count Lymph % (Auto) Lymph # Lymph # (Auto) Seg Neutrophils % Seg Neuts % (Manual) Lymphocytes % (Manual) Seg Neutrophils # Seg Neutrophils # Man Nucleated RBC % Lymphocytes # (Manual) Monocytes # (Manual) PT INR Heparin Anti-Xa Level POC ABG pO2 ABG pH POC ABG pCO2 ABG Hemoglobin ABG Oxyhemoglobin ABG pO2 ABG HCO3 ABG O2 Saturation ABG Base Excess ABG Potassium ABG Glucose Oxyhemoglobin Sodium Potassium Chloride Carbon Dioxide BUN Creatinine Glucose POC Glucose 239 H 175 H 309 H Lactic Acid Calcium AST Phosphorus Total Protein Albumin C-Reactive Protein Arterial Blood Glucose Arterial Blood Ionized Calcium Urine WBC (Auto) 02/06/20 02/06/20 02/06/20 04:27 05:11 05:40 WBC RBC Hgb Hct MCHC RDW Plt Count Lymph % (Auto) Lymph # Lymph # (Auto) Seg Neutrophils % Seg Neuts % (Manual) Lymphocytes % (Manual) Seg Neutrophils # Seg Neutrophils # Man Nucleated RBC % Lymphocytes # (Manual) Monocytes # (Manual) PT INR Heparin Anti-Xa Level POC ABG pO2 157.2 H ABG pH 7.551 H POC ABG pCO2 ABG Hemoglobin 7.3 L ABG Oxyhemoglobin 98.3 H ABG pO2 ABG HCO3 ABG O2 Saturation ABG Base Excess ABG Potassium ABG Glucose Oxyhemoglobin Sodium 148 H Potassium 3.0 L Chloride 107.3 H Carbon Dioxide 33 H BUN 33 H Creatinine 0.5 L Glucose 283 H POC Glucose 347 H Lactic Acid Calcium 7.9 L AST Phosphorus Total Protein 3.6 L D Albumin 1.2 L C-Reactive Protein Arterial Blood Glucose Arterial Blood Ionized Calcium Urine WBC (Auto) 02/06/20 02/06/20 02/06/20 08:45 11:52 18:26 WBC 16.3 H RBC 2.12 L Hgb 6.6 L Hct 20.3 L MCHC RDW 24.4 H Plt Count Lymph % (Auto) Lymph # Lymph # (Auto) Seg Neutrophils % Seg Neuts % (Manual) 98.0 H Lymphocytes % (Manual) 1.0 L Seg Neutrophils # Seg Neutrophils # Man 16.0 H Nucleated RBC % Lymphocytes # (Manual) 0.2 L Monocytes # (Manual) PT INR Heparin Anti-Xa Level POC ABG pO2 ABG pH POC ABG pCO2 ABG Hemoglobin ABG Oxyhemoglobin ABG pO2 ABG HCO3 ABG O2 Saturation ABG Base Excess ABG Potassium ABG Glucose Oxyhemoglobin Sodium Potassium Chloride Carbon Dioxide BUN Creatinine Glucose POC Glucose 132 H 114 H Lactic Acid Calcium AST Phosphorus Total Protein Albumin C-Reactive Protein Arterial Blood Glucose Arterial Blood Ionized Calcium Urine WBC (Auto) 02/07/20 02/07/20 02/07/20 00:08 05:41 11:49 WBC RBC Hgb Hct MCHC RDW Plt Count Lymph % (Auto) Lymph # Lymph # (Auto) Seg Neutrophils % Seg Neuts % (Manual) Lymphocytes % (Manual) Seg Neutrophils # Seg Neutrophils # Man Nucleated RBC % Lymphocytes # (Manual) Monocytes # (Manual) PT INR Heparin Anti-Xa Level POC ABG pO2 ABG pH POC ABG pCO2 ABG Hemoglobin ABG Oxyhemoglobin ABG pO2 ABG HCO3 ABG O2 Saturation ABG Base Excess ABG Potassium ABG Glucose Oxyhemoglobin Sodium Potassium Chloride Carbon Dioxide BUN Creatinine Glucose POC Glucose 111 H 164 H 146 H Lactic Acid Calcium AST Phosphorus Total Protein Albumin C-Reactive Protein Arterial Blood Glucose Arterial Blood Ionized Calcium Urine WBC (Auto) 02/07/20 02/07/20 02/08/20 17:56 23:27 03:55 WBC RBC Hgb Hct MCHC RDW Plt Count Lymph % (Auto) Lymph # Lymph # (Auto) Seg Neutrophils % Seg Neuts % (Manual) Lymphocytes % (Manual) Seg Neutrophils # Seg Neutrophils # Man Nucleated RBC % Lymphocytes # (Manual) Monocytes # (Manual) PT INR Heparin Anti-Xa Level POC ABG pO2 112.8 H ABG pH 7.511 H POC ABG pCO2 51.2 H ABG Hemoglobin 7.8 L ABG Oxyhemoglobin ABG pO2 ABG HCO3 ABG O2 Saturation ABG Base Excess ABG Potassium ABG Glucose Oxyhemoglobin Sodium Potassium Chloride Carbon Dioxide BUN Creatinine Glucose POC Glucose 140 H 164 H Lactic Acid Calcium AST Phosphorus Total Protein Albumin C-Reactive Protein Arterial Blood Glucose Arterial Blood Ionized Calcium Urine WBC (Auto) 02/08/20 02/08/20 02/08/20 04:46 04:46 05:31 WBC RBC 2.30 L Hgb 7.3 L Hct 22.0 L MCHC RDW 23.9 H Plt Count Lymph % (Auto) 8.5 L Lymph # Lymph # (Auto) 0.8 L Seg Neutrophils % 87.6 H Seg Neuts % (Manual) Lymphocytes % (Manual) Seg Neutrophils # 8.7 H Seg Neutrophils # Man Nucleated RBC % Lymphocytes # (Manual) Monocytes # (Manual) PT INR Heparin Anti-Xa Level POC ABG pO2 ABG pH POC ABG pCO2 ABG Hemoglobin ABG Oxyhemoglobin ABG pO2 ABG HCO3 ABG O2 Saturation ABG Base Excess ABG Potassium ABG Glucose Oxyhemoglobin Sodium Potassium 3.1 L Chloride Carbon Dioxide 31 H BUN 29 H Creatinine 0.3 L Glucose 108 H POC Glucose 117 H Lactic Acid Calcium AST Phosphorus Total Protein Albumin C-Reactive Protein Arterial Blood Glucose Arterial Blood Ionized Calcium Urine WBC (Auto) 02/08/20 02/08/20 02/08/20 10:15 12:10 12:23 WBC RBC Hgb Hct MCHC RDW Plt Count Lymph % (Auto) Lymph # Lymph # (Auto) Seg Neutrophils % Seg Neuts % (Manual) Lymphocytes % (Manual) Seg Neutrophils # Seg Neutrophils # Man Nucleated RBC % Lymphocytes # (Manual) Monocytes # (Manual) PT INR Heparin Anti-Xa Level POC ABG pO2 ABG pH POC ABG pCO2 ABG Hemoglobin ABG Oxyhemoglobin ABG pO2 ABG HCO3 ABG O2 Saturation ABG Base Excess ABG Potassium ABG Glucose Oxyhemoglobin Sodium Potassium Chloride Carbon Dioxide BUN Creatinine Glucose POC Glucose 164 H 170 H 164 H Lactic Acid Calcium AST Phosphorus Total Protein Albumin C-Reactive Protein Arterial Blood Glucose Arterial Blood Ionized Calcium Urine WBC (Auto) Allied health notes reviewed: nursing
[2020-02-08] MEDS ORDERED: POTASSIUM CHLORIDE 20 MEQ PACKET FEEDTUBE ONE (16:00)
[2020-02-08] MEDS: DEXTROSE 50% IN WATER (25GM) 50 ML SYRINGE IV PRN (18:26)
[2020-02-08] MEDS: MIRTAZAPINE 15 MG TAB PO SCH (21:35)
[2020-02-08] MEDS: DONEPEZIL 10 MG TAB PO SCH (21:36)
[2020-02-08] MEDS: traZODone 50 MG TAB PO SCH (21:36)
[2020-02-09] MEDS: INSULIN REGULAR, HUMAN 100 UNIT/ML 3ML VIAL SUB-Q SCH ×4 (00:17→18:17)
[2020-02-09] MEDS: PIPERACIL/TAZOBACTA 4.5/NS 100 4.5 GM/100 ML VIAL IV SCH ×3 (05:04→21:50)
[2020-02-09 05:29] LABS: Hematocrit 20.8 % (30.3-42.9); Mean Corpuscular HGB Conc 34 % (30-34); Mean Corpuscular Volume 97 fl (79-97); Platelet Count 281 K/mm3 (140-440); Red Blood Count 2.15 M/mm3 (3.65-5.03)
[2020-02-09 05:40] LABS: Red Cell Distribution Width 23.3 % (13.2-15.2)
[2020-02-09 08:27] LABS: BUN/Creatinine Ratio 68; Blood Urea Nitrogen 27 mg/dL (7-17); Calcium 8.2 mg/dL (8.4-10.2); Hemolysis Index 2
[2020-02-09] MEDS ORDERED: POTASSIUM CHLORIDE 20 MEQ PACKET FEEDTUBE ONE (09:00)
[2020-02-09] MEDS: NEOMY 3.5 MG/BACIT 400 UNITS/POLY B 5000 UNITS OINT 15 GM TP SCH (09:31)
--- NOTE | 2020-02-09 09:50 | Progress Note ---
Assessment and Plan Assessment and plan: --Acute hypoxic respiratory failure, status post cardiac arrest Continue mechanical ventilation, nebulizers, wean as tolerated status post extubation 02/02/2020 but had to be reintubated on 02/04 --Shock/ septic shock We will continue Levophed, wean as tolerated Etiology secondary to infected sacral decubitus ulcer and UTI --Proteus bacteremia. As above. --Hypokalemia Replete as needed Normal magnesium levels, closely monitor electrolytes -- Hypernatremia; Continue free water flushes via G-tube And monitor electrolytes -- Uncontrolled diabetes mellitus Blood sugars are very high , patient did not receive Lantus last night Lantus was already ordered this morning , monitor blood sugars and adjust Accu-Chek sliding scale coverage long-acting insulin DM management with SSI, TF --s/p PEA arrest night on 01/28/2020 and 02/05/2020 s/p CPR per ACLS protocol --Anoxic/hypoxic encephalopathy. Neurology consultation on Sunday with possible EEG/MRI -- Hydropneumothorax, not POA Patient developed hydropneumothorax on 01/15. Surgery evaluated s/p chest tube placed on 01/15. Improved, s/p chest tube removed 01/22, extubated 02/02/2020 Patient is using nasal cannula oxygen/BiPAP and Ventimask as needed -- large Left pleural effusion 01/25 Continue supportive care, pulmonary following --Unstageable sacral decubitus ulcer, infected/POA s/p wound debridement on 01/15. Wound vac in place ID recommend zosyn 4.5 g IV q8h total 6 weeks stop date 02/27/2020 -- UTI (urinary tract infection) Completed antibiotics --h/o Bilateral pulmonary embolism Had pulmonary embolism 7 months ago. CTA chest and LE doppler showed no acute PE or DVT eliquis now stopped -- Dementia: Continue donepezil --Severe protein-calorie malnutrition She is not eating well and is getting feeds through the NG tube. Discussed with - this problem has been chronic agreed for PEG PEG placed 01/13. Now on tube feeds --DVT prophylaxis; SCDs The high probability of a clinically significant, sudden or life threatening deterioration of the [Respiratory, HOSTING ENGINEER, CVs] system(s) required my full and direct attention, intervention and personal management. The aggregate critical care time was [32] minutes. This time is in addition to time spent performing reported procedures but includes the following: [x] Data Review and interpretation [x] Patient assessment and monitoring of vital signs [x] Documentation [x] Medication orders and management Patient is critically ill, multiple episodes of cardiac arrest Multiple episodes of respiratory arrest requiring mechanical ventilation Very poor prognosis, excellence consultant recommendations noted and appreciated 02/02; patient was extubated on 02/02/2020, currently on Ventimask 02/03; patient feels slightly better saturating well on Ventimask/BiPAP as needed Hypo-kalemia replenish per protocol Full CODE STATUS 10/1; patient had yet another PEA arrest status post CPR per ACLS protocol Intubated on vent, very poor prognosis, full CODE STATUS 10/2; patient remains intubated on vent, septic shock on Levophed, hypokalemia, poor prognosis 02/07/2020. Patient currently with PSV/CPAP FiO2 50%, PEEP of 6 and pressure support of 10. Continue PSV trials as tolerated and wean per pulmonary. Recall ID consultation. 02/08/2020. Patient with Proteus bacteremia likely from sacral decubitus. Continue Zosyn 4.5 g IV every 8 hours until stop date of 02/26. Patient still on mechanical ventilation AC mode rate 12, tidal volume 350, FiO2 30% and PEEP of 6. Poor prognosis. Consider hospice. Continue scopolamine for secretion control. Continue pressors to maintain MAP > 65; currently off. 02/09/2020. Continue Zosyn 4.5 g IV every 8 hours for Proteus bacteremia with end date of 02/27/2020. Continue wound care/wound VAC per surgery. Patient still on mechanical ventilation AC mode rate 12, tidal volume 350, FiO2 30% and PEEP of 6. Poor prognosis. Consider hospice. Continue scopolamine for secretion control. Currently off pressors. History Interval history: No new issues overnight. Hospitalist Physical - Constitutional Vitals: Temp Pulse Resp BP Pulse Ox 98.3 F 110 H 23 123/67 100 02/09/20 08:00 02/09/20 08:55 02/09/20 08:55 02/09/20 08:55 02/09/20 08:55 General appearance: Present: mild distress, well-nourished, other (Intubated on vent) - EENT Eyes: Present: PERRL, EOM intact ENT: hearing intact, clear oral mucosa, dentition normal - Neck Neck: Present: supple, normal ROM - Respiratory Respiratory effort: normal Respiratory: bilateral: CTA - Cardiovascular Rhythm: regular Heart Sounds: Present: S1 & S2. Absent: gallop, rub - Extremities Extremities: no ischemia, No edema, Full ROM - Abdominal General gastrointestinal: soft, non-tender, non-distended, normal bowel sounds - Integumentary Integumentary: Present: clear, warm, dry - Neurologic Neurologic: CNII-XII intact, moves all extremities Results - Labs CBC & Chem 7: 02/09/20 Unknown 02/09/20 08:00 Labs: Laboratory Last Values WBC 9.0 K/mm3 (4.5-11.0) 02/09/20 Unknown RBC 2.15 M/mm3 (3.65-5.03) L 02/09/20 Unknown Hgb 7.0 gm/dl (10.1-14.3) L 02/09/20 Unknown Hct 20.8 % (30.3-42.9) L 02/09/20 Unknown MCV 97 fl (79-97) 02/09/20 Unknown MCH 33 pg (28-32) H 02/09/20 Unknown MCHC 34 % (30-34) 02/09/20 Unknown RDW 23.3 % (13.2-15.2) H 02/09/20 Unknown Plt Count 281 K/mm3 (140-440) 02/09/20 Unknown Lymph % (Auto) 8.5 % (13.4-35.0) L 02/08/20 04:46 Mcd[place]ough % (Auto) 2.5 % (0.0-7.3) 02/08/20 04:46 Eos % (Auto) 1.2 % (0.0-4.3) 02/08/20 04:46 Baso % (Auto) 0.2 % (0.0-1.8) 02/08/20 04:46 Lymph # (Auto) 0.8 K/mm3 (1.2-5.4) L 02/08/20 04:46 Mcd[place]ough # (Auto) 0.2 K/mm3 (0.0-0.8) 02/08/20 04:46 Eos # (Auto) 0.1 K/mm3 (0.0-0.4) 02/08/20 04:46 Baso # (Auto) 0.0 K/mm3 (0.0-0.1) 02/08/20 04:46 Add Manual Diff Complete 02/06/20 08:45 Total Counted 100 02/06/20 08:45 Seg Neutrophils % 87.6 % (40.0-70.0) H 02/08/20 04:46 Seg Neuts % (Manual) 98.0 % (40.0-70.0) H 02/06/20 08:45 Band Neutrophils % 0 % 02/06/20 08:45 Lymphocytes % (Manual) 1.0 % (13.4-35.0) L 02/06/20 08:45 Reactive Lymphs % (Man) 0 % 02/06/20 08:45 Monocytes % (Manual) 1.0 % (0.0-7.3) 02/06/20 08:45 Eosinophils % (Manual) 0 % (0.0-4.3) 02/06/20 08:45 Basophils % (Manual) 0 % (0.0-1.8) 02/06/20 08:45 Metamyelocytes % 0 % 02/06/20 08:45 Myelocytes % 0 % 02/06/20 08:45 Promyelocytes % 0 % 02/06/20 08:45 Blast Cells % 0 % 02/06/20 08:45 Nucleated RBC % Not Reportable 02/06/20 08:45 Seg Neutrophils # 8.7 K/mm3 (1.8-7.7) H 02/08/20 04:46 Seg Neutrophils # Man 16.0 K/mm3 (1.8-7.7) H 02/06/20 08:45 Band Neutrophils # 0.0 K/mm3 02/06/20 08:45 Lymphocytes # (Manual) 0.2 K/mm3 (1.2-5.4) L 02/06/20 08:45 Abs React Lymphs (Man) 0.0 K/mm3 02/06/20 08:45 Monocytes # (Manual) 0.2 K/mm3 (0.0-0.8) 02/06/20 08:45 Eosinophils # (Manual) 0.0 K/mm3 (0.0-0.4) 02/06/20 08:45 Basophils # (Manual) 0.0 K/mm3 (0.0-0.1) 02/06/20 08:45 Metamyelocytes # 0.0 K/mm3 02/06/20 08:45 Myelocytes # 0.0 K/mm3 02/06/20 08:45 Promyelocytes # 0.0 K/mm3 02/06/20 08:45 Blast Cells # 0.0 K/mm3 02/06/20 08:45 WBC Morphology Not Reportable 02/06/20 08:45 Hypersegmented Neuts Not Reportable 02/06/20 08:45 Hyposegmented Neuts Not Reportable 02/06/20 08:45 Hypogranular Neuts Not Reportable 02/06/20 08:45 Smudge Cells Not Reportable 02/06/20 08:45 Toxic Granulation Not Reportable 02/06/20 08:45 Toxic Vacuolation Not Reportable 02/06/20 08:45 Dohle Bodies Not Reportable 02/06/20 08:45 Pelger-Huet Anomaly Not Reportable 02/06/20 08:45 Lata Rods Not Reportable 02/06/20 08:45 Platelet Estimate Consistent w auto 02/06/20 08:45 Clumped Platelets Not Reportable 02/06/20 08:45 Plt Clumps, EDTA Not Reportable 02/06/20 08:45 Large Platelets Few 02/06/20 08:45 Giant Platelets Not Reportable 02/06/20 08:45 Platelet Satelliting Not Reportable 02/06/20 08:45 Plt Morphology Comment Not Reportable 02/06/20 08:45 RBC Morphology Not Reportable 02/06/20 08:45 Dimorphic RBCs Not Reportable 02/06/20 08:45 Polychromasia Not Reportable 02/06/20 08:45 Hypochromasia 1+ 02/06/20 08:45 Poikilocytosis Not Reportable 02/06/20 08:45 Anisocytosis 2+ 02/06/20 08:45 Microcytosis Not Reportable 02/06/20 08:45 Macrocytosis Not Reportable 02/06/20 08:45 Spherocytes Not Reportable 02/06/20 08:45 Pappenheimer Bodies Not Reportable 02/06/20 08:45 Sickle Cells Not Reportable 02/06/20 08:45 Target Cells Few 02/06/20 08:45 Tear Drop Cells Not Reportable 02/06/20 08:45 Ovalocytes Not Reportable 02/06/20 08:45 Helmet Cells Not Reportable 02/06/20 08:45 [place] Bodies Not Reportable 02/06/20 08:45 Colton Rings Not Reportable 02/06/20 08:45 Leonidas Cells Not Reportable 02/06/20 08:45 Bite Cells Not Reportable 02/06/20 08:45 Crenated Cell Not Reportable 02/06/20 08:45 Elliptocytes Not Reportable 02/06/20 08:45 Acanthocytes (Spur) Not Reportable 02/06/20 08:45 Rouleaux Not Reportable 02/06/20 08:45 Hemoglobin C Crystals Not Reportable 02/06/20 08:45 Schistocytes Not Reportable 02/06/20 08:45 Malaria parasites Not Reportable 02/06/20 08:45 Gideon Bodies Not Reportable 02/06/20 08:45 Hem Pathologist Commnt No 02/06/20 08:45 APTT 33.9 Sec. (24.2-36.6) 01/26/20 16:30 PT 14.4 Sec. (12.2-14.9) 02/02/20 05:25 INR 1.11 (0.87-1.13) 02/02/20 05:25 Heparin Anti-Xa Level 0.74 U.I./ml (0.3-0.7) H 01/28/20 08:50 ABG pH 7.501 (7.320-7.450) H 02/09/20 03:04 POC ABG pCO2 41.0 mmHg (32.0-48.0) 02/09/20 03:04 ABG pCO2 46.1 mm Hg 02/05/20 01:03 POC ABG pO2 100.0 mmHg (83-108) 02/09/20 03:04 ABG pO2 50.7 mm Hg (80.0-90.0) L 02/05/20 01:03 POC ABG HCO3 31.9 02/09/20 03:04 ABG HCO3 29.6 mmol/L (20.0-26.0) H 02/05/20 01:03 ABG O2 Saturation 82.7 % (95.0-99.0) L 02/05/20 01:03 ABG O2 Content 8.2 (0.0-44) 02/05/20 01:03 POC ABG Base Excess 8 02/09/20 03:04 ABG Base Excess 4.8 mmol/L (-2.0-3.0) H 02/05/20 01:03 ABG Hemoglobin 7.5 (12.0-17.5) L 02/09/20 03:04 ABG Oxyhemoglobin 96.7 (94-98) 02/09/20 03:04 ABG Carboxyhemoglobin 1.5 % (0.0-5.0) 02/05/20 01:03 ABG Methemoglobin 0.3 (0.0-1.5) 02/08/20 03:55 ABG Sodium 138.2 mmol/L (136.0-145.0) 02/09/20 03:04 ABG Potassium 3.4 mmol/L (3.40-4.50) 02/09/20 03:04 ABG Chloride 107.0 mmol/L (98-107) 02/09/20 03:04 ABG Glucose 143 mg/dL (65-95) H 02/09/20 03:04 Oxyhemoglobin 81.0 % (95.0-99.0) L 02/05/20 01:03 Carboxyhemoglobin 0.9 (0.5-1.5) 02/08/20 03:55 FiO2 30.0 02/09/20 03:04 Sodium 145 mmol/L (137-145) 02/09/20 08:00 Potassium 3.3 mmol/L (3.6-5.0) L 02/09/20 08:00 Chloride 106.4 mmol/L (98-107) 02/09/20 08:00 Carbon Dioxide 34 mmol/L (22-30) H 02/09/20 08:00 Anion Gap 8 mmol/L 02/09/20 08:00 BUN 27 mg/dL (7-17) H 02/09/20 08:00 Creatinine 0.4 mg/dL (0.6-1.2) L 02/09/20 08:00 Estimated GFR > 60 ml/min 02/09/20 08:00 BUN/Creatinine Ratio 68 % 02/09/20 08:00 Glucose 127 mg/dL (65-100) H 02/09/20 08:00 POC Glucose 160 (70-105) H 02/09/20 05:57 Hemoglobin A1c 5.3 % (4-6) 01/11/20 00:45 Lactic Acid 1.30 mmol/L (0.7-2.0) 01/26/20 23:27 Calcium 8.2 mg/dL (8.4-10.2) L 02/09/20 08:00 Phosphorus 2.30 mg/dL (2.5-4.5) L 02/03/20 05:14 Magnesium 2.20 mg/dL (1.7-2.3) 02/06/20 05:11 Total Bilirubin 0.20 mg/dL (0.1-1.2) 02/06/20 05:11 AST 16 units/L (5-40) 02/06/20 05:11 ALT 18 units/L (7-56) 02/06/20 05:11 Alkaline Phosphatase 51 units/L (35-129) 02/06/20 05:11 C-Reactive Protein 14.80 mg/dL (0.00-1.30) H 01/29/20 Unknown Total Protein 3.6 g/dL (6.3-8.2) L D 02/06/20 05:11 Albumin 1.2 g/dL (3.9-5) L 02/06/20 05:11 Albumin/Globulin Ratio 0.5 % 02/06/20 05:11 TSH 2.440 mlU/mL (0.270-4.200) 01/10/20 10:10 Procalcitonin 1.86 ng/mL (<0.15) 01/29/20 Unknown Arterial Blood Glucose 143 mg/dL (65-95) H 02/09/20 03:04 Arterial Blood Ionized Calcium 4.6 mg/dL (4.6-5.3) 02/09/20 03:04 Urine Color [place] (Yellow) 01/08/20 Unknown Urine Turbidity Cloudy (Clear) 01/08/20 Unknown Urine pH 5.0 (5.0-7.0) 01/08/20 Unknown Ur Specific [place] 1.018 (1.003-1.030) 01/08/20 Unknown Urine Protein 30 mg/dl mg/dL (Negative) 01/08/20 Unknown Urine Glucose (UA) Neg mg/dL (Negative) 01/08/20 Unknown Urine Ketones Neg mg/dL (Negative) 01/08/20 Unknown Urine Blood Mod (Negative) 01/08/20 Unknown Urine Nitrite Neg (Negative) 01/08/20 Unknown Urine Bilirubin Neg (Negative) 01/08/20 Unknown Urine Urobilinogen < 2.0 mg/dL (<2.0) 01/08/20 Unknown Ur Leukocyte Esterase Sm (Negative) 01/08/20 Unknown Urine WBC (Auto) 11.0 /HPF (0.0-6.0) H 01/08/20 Unknown Urine RBC (Auto) 7.0 /HPF (0.0-6.0) 01/08/20 Unknown U Epithel Cells (Auto) < 1.0 /HPF (0-13.0) 01/08/20 Unknown Urine Bacteria (Auto) 1+ /HPF (Negative) 01/08/20 Unknown Urine Mucus 2+ /HPF 01/08/20 Unknown Urine Yeast (Budding) 1+ /HPF 01/08/20 Unknown Vancomycin Trough 7.9 ug/mL (5.0-20.0) 01/17/20 16:04 Mejía/IV: Voiding Method Indwelling Catheter IV Catheter Type [Left Upper PICC Line arm] IV Catheter Type [Right Upper Mid-line arm] IV Catheter Type [Right Peripheral IV Forearm] Active Medications - Current Medications Current Medications: Generic Name Dose Route Start Last Admin Trade Name Freq PRN Reason Stop Dose Admin Acetaminophen 650 mg 01/08/20 23:14 01/18/20 06:03 Tylenol PO 650 mg Q4H PRN Administration Pain MILD(1-3)/Fever >100.5/GARCIA Lipase/Protease/Amylase 1 each 01/17/20 08:[address] 10,500 Unit FEEDTUBE PRN PRN For Clogged Feeding Tube Atorvastatin Calcium 10 mg 01/09/20 22:00 02/08/20 21:36 Atorvastatin PO 10 mg QHS BRO Administration Dextrose 0 ml 01/08/20 23:14 02/08/20 18:26 D50w (25gm) Syringe IV 10 ml Q30MIN PRN Administration Hypoglycemia Protocol Donepezil HCl 10 mg 01/09/20 22:00 02/08/20 21:36 Aricept PO 10 mg QHS BRO Administration Famotidine 20 mg 01/27/20 10:00 02/08/20 21:35 Pepcid PO 20 mg BID BRO Administration Fluticasone Propionate 100 mcg 01/25/20 20:00 01/26/20 06:09 Flonase NS 100 mcg QDAY PRN Administration Nasal Congestion Heparin Sodium (Porcine) 5,000 unit 01/28/20 10:00 02/08/20 21:36 Heparin SUB-Q 5,000 unit Q12HR BRO Administration Hydrophilic Ointment 1 applic 01/28/20 10:57 Vaseline Lip Therapy TP Q2HR PRN Dry Lips Piperacillin Sod/Tazobactam Sod 4.5 gm in 100 mls @ 200 mls/hr 01/19/20 14:00 02/09/20 05:40 Zosyn/Ns 4.5gm/100ml IV 02/27/20 22:29 Infused Q8HR BRO Infusion Protocol Norepinephrine 4 mg in 250 mls @ 7.5 mls/hr 02/05/20 01:00 02/06/20 15:32 Levophed Drip 4 Mg/Ns 250 Ml IV Infused TITR BRO Titration Protocol 2 MCG/MIN Insulin Glargine 5 units 02/06/20 10:00 02/08/20 10:04 Lantus SUB-Q 5 units DAILY BRO Administration Insulin Human Regular 0 unit 01/27/20 12:00 02/09/20 06:26 Humulin R SUB-Q 3 unit Q6HR BRO Administration Protocol Magnesium Hydroxide 30 ml 01/08/20 23:14 Milk Of Magnesia PO Q4H PRN Constipation Megestrol Acetate 400 mg 01/12/20 11:00 02/08/20 10:04 Megestrol PO 400 mg QDAY BRO Administration Mirtazapine 15 mg 01/09/20 22:00 02/08/20 21:35 Remeron PO 15 mg QHS BRO Administration Multi-Ingred Cream/Lotion/Oil/Oint 1 applic 01/28/20 10:57 Artificial Tears Ophth Oint OU Q4HR PRN Dry Eye(s) Neomycin/Polymyxin/Bacitracin 1 applic 02/08/20 04:45 02/09/20 09:31 Triple Antibiotic TP 1 applic QDAY BRO Administration Ondansetron HCl 4 mg 01/08/20 23:14 Zofran IV Q8H PRN Nausea And Vomiting Scopolamine 1 each 02/05/20 10:00 02/08/20 10:05 Transderm-Scop TD 1 each Q3D BRO Administration Simple Syrup 15 ml 01/17/20 08:37 Simple Syrup FEEDTUBE PRN PRN Hypoglycemia Simple Syrup 30 ml 01/17/20 08:37 Simple Syrup FEEDTUBE PRN PRN Hypoglycemia Sodium Bicarbonate 325 mg 01/17/20 08:37 Sodium Bicarbonate FEEDTUBE PRN PRN For Clogged Feeding Tube Sodium Chloride 10 ml 01/09/20 10:00 02/09/20 09:32 Sodium Chloride Flush Syringe 10 Ml IV 10 ml BID BRO Administration Sodium Chloride 10 ml 01/08/20 23:14 Sodium Chloride Flush Syringe 10 Ml IV PRN PRN LINE FLUSH Trazodone HCl 25 mg 01/09/20 22:00 02/08/20 21:36 Desyrel PO 25 mg QHS BRO Administration Nutrition/Malnutrition Assess - Dietary Evaluation Nutrition/Malnutrition Findings: Nutrition Notes Start: 01/09/20 12:13 Freq: Status: Active Protocol: Document 02/03/20 11:26 [email or web address] (Rec: 02/03/20 13:23 [email or web address]) Co-Sign 02/03/20 11:26 NHALL Nutrition Notes Initial or Follow up Reassessment Current Diagnosis Decubitus(Pressure Ulcer), Diabetes,Sepsis Other Pertinent Diagnosis UTI, dementia, PE, Sacral wound Current Diet Vital AF 1.2 at 50ml/hr Labs/Tests K 3.1 BUN 29 BG 160 Pertinent Medications Solucortef KCl 20mEq Height 5 ft 2 in Weight 65 kg [place] Body Weight (kg) 50.00 BMI 26.2 Weight change and time frame Wt change noted. Pt has edema Subjective/Other Information F/U for TF tolerance. Pt extubated yesterday. No TF running at time of visit. 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 No Is Patient Ambulatory and/or Out of Bed No REE-([place]-[facility] Jeor-confined to bed) 1353.840 Kcal/Kg value to use for calculation 24 Approximate Energy Requirements Using 1560 kcal/Kg Calculation Used for Recommendations Kcal/kg Additional Notes Protein Needs: 81-98g(1.25-1.5 ) Fluid Needs: 1ml/kcal Nutrition Intervention Change Diet Order: Continue Nutrition Support: Vital AF 1.2 at 50ml/hr Flush 200ml q4h per MD Kcal 1,440 Protein (gm) 90 Fluid (mL) 973 Goal #1 Meet at least 80% of kcal and protein needs via TF Goal #2 TF tolerance Goal #3 Wound Healing Anticipated Discharge Needs: Continue TF Follow-Up By: 02/10/20 Additional Comments F/U TF tolerance
[2020-02-09] MEDS: MEGESTROL 400 MG/10 ML ORAL LIQD PO SCH (10:02)
[2020-02-09] MEDS: FAMOTIDINE 20 MG TAB PO SCH ×2 (10:02→21:49)
[2020-02-09] MEDS: HEPARIN 5,000 UNIT/1 ML VIAL SUB-Q SCH ×2 (10:02→21:49)
[2020-02-09] MEDS: INSULIN GLARGINE 100 UNITS/ML SUB-Q SCH (10:02)
--- NOTE | 2020-02-09 10:27 | Progress Note ---
Assessment and Plan Cultures: Blood cultures 01/08/2020 MDR Proteus mirabilis. Blood culture 01/12/2020 no growth. Urine culture 01/08/2020 no growth. Tissue culture 01/16/2020 MDR Proteus and enterococcus BAL culture 01/28/2020: normal resp shoshana tracheal aspirate 02/05/2020: normal resp shoshana A/P: 69 years old female with history of diabetes mellitus, pulmonary embolism, dementia, admitted on 01/08/2020 due to altered mental status, lethargy and hypotension. Patient was evaluated by her home health nurse who found her less active and hypotensive: #Septic shock: off pressors. #s/p PEA arrest night of 01/28/2020 and on 02/05/2020 #Proteus bacteremia: Likely from sacral decubitus. Continues on Zosyn. #Unstageable sacral decubitus, infected: Status post or debridement on 01/16/2020, tissue cultures growing MDR Proteus and enterococcus. OR findings extensive fascial necrosis. Dr. Roberts had discussed with Dr Vo likely osteomyelitis. End date for Zosyn is 6 weeks till 02/27/2020. Prognosis however is poor. #UTI #Acute hypoxemic respiratory failure: remains on the vent. Recs:- -continue Zosyn 4.5 g IV every 8 hours, end date is 02/27/2020 -Offloading, wound care and wound VAC per surgery -Prognosis remains poor, hospice would be appropriate Braxton Danielle [facility] Subjective Date of service: 02/09/20 Principal diagnosis: Septic Shock; S/P Cardiac Arrest; Ac. hypoxemic resp failure; UTI Interval history: Remains on the vent. No fever. Doesn't respond, does seem to track. Objective - Exam Narrative Exam: Physical Exam: Constitutional: opens eyes, intubated, on the vent Head, Ears, Nose: Normocephalic, atraumatic. External ears, nose normal Eyes: Conjunctivae/corneas clear. No icterus. No ptosis. Neck: intubated Oral: intubated Cardiovascular: S1, S2 normal. Respiratory: AE fair b/l GI: Soft, non-tender, bowel sounds + Musculoskeletal: contractures +, edematous extremities. Skin: sacral wound with wound VAC Hem/Lymphatic: No palpable cervical or supraclavicular nodes. No lymphangitis Psych: no agitation Neurological: opens eyes but doesn't respond, intubated, on the vent, does seem to track - Constitutional Vitals: Vital Signs Temp Pulse Resp BP Pulse Ox 98.3 F 112 H 22 117/64 100 02/09/20 08:00 02/09/20 10:15 02/09/20 10:15 02/09/20 10:15 02/09/20 10:15 Temperature -Last 24 Hours Temperature 98.3 F Temperature 98.9 F Temperature 98.7 F Temperature 98.0 F Temperature 98.8 F Temperature 96.9 F Temperature 94.0 F - Labs CBC & Chem 7: 02/09/20 Unknown 02/09/20 08:00 Labs: Abnormal lab results 02/08/20 02/08/20 02/08/20 Range/Units 12:10 12:23 23:50 RBC (3.65-5.03) M/mm3 Hgb (10.1-14.3) gm/dl Hct (30.3-42.9) % MCH (28-32) pg RDW (13.2-15.2) % ABG pH (7.320-7.450) ABG Hemoglobin (12.0-17.5) ABG Glucose (65-95) mg/dL Potassium (3.6-5.0) mmol/L Carbon Dioxide (22-30) mmol/L BUN (7-17) mg/dL Creatinine (0.6-1.2) mg/dL Glucose (65-100) mg/dL POC Glucose 170 H 164 H 126 H (70-105) Calcium (8.4-10.2) mg/dL Arterial Blood Glucose (65-95) mg/dL 02/09/20 02/09/20 02/09/20 Range/Units 03:04 05:57 08:00 RBC (3.65-5.03) M/mm3 Hgb (10.1-14.3) gm/dl Hct (30.3-42.9) % MCH (28-32) pg RDW (13.2-15.2) % ABG pH 7.501 H (7.320-7.450) ABG Hemoglobin 7.5 L (12.0-17.5) ABG Glucose 143 H (65-95) mg/dL Potassium 3.3 L (3.6-5.0) mmol/L Carbon Dioxide 34 H (22-30) mmol/L BUN 27 H (7-17) mg/dL Creatinine 0.4 L (0.6-1.2) mg/dL Glucose 127 H (65-100) mg/dL POC Glucose 160 H (70-105) Calcium 8.2 L (8.4-10.2) mg/dL Arterial Blood Glucose 143 H (65-95) mg/dL 02/09/20 Range/Units Unknown RBC 2.15 L (3.65-5.03) M/mm3 Hgb 7.0 L (10.1-14.3) gm/dl Hct 20.8 L (30.3-42.9) % MCH 33 H (28-32) pg RDW 23.3 H (13.2-15.2) % ABG pH (7.320-7.450) ABG Hemoglobin (12.0-17.5) ABG Glucose (65-95) mg/dL Potassium (3.6-5.0) mmol/L Carbon Dioxide (22-30) mmol/L BUN (7-17) mg/dL Creatinine (0.6-1.2) mg/dL Glucose (65-100) mg/dL POC Glucose (70-105) Calcium (8.4-10.2) mg/dL Arterial Blood Glucose (65-95) mg/dL
--- NOTE | 2020-02-09 10:57 | Progress Note ---
Assessment and Plan Severe sepsis with shock. Left lung atelectasis. Left pleural effusion. Acute hypoxemic respiratory failure on MVS s/p Cardiopulamanry arrest with ROSC x2 Severe sepsis with shock Acute possibly on chronic encephalopathy. History of diabetes. Urinary tract infection. History of pulmonary embolism, diagnosed several months ago. Sacral decubitus ulcer. Dementia. Anemia that is normocytic. -Monitor hemodynamics closely and hemoglobin -VAP bundle addressed -Wean FIO2 for O2 sats >92%, currently on FIO2 of 80% -Aspiration precautions, HOB >40 -Enteric nutritional support- has a PEG - continue bronchodilators with pulmonary hygiene per RT - continue accuchecks with glycemic control per SSI (While critically ill target blood glucose of 140-180 mg/dL; avoid hypoglycemia) - avoid nephrotoxins, renally dose all medications - continue to avoid benzodiazepines, reduce the possibility of delirium - complete antibiotics -on Zosyn for sacral osteomyelitis Discussed with ID - prn analgesia per CPOT score - Maintenance of sleep-wake cycle, avoid delirium -VTE prophylaxis with Heparin - Stress ulcer prophylaxis with Famotidine - PT/OT/ROM exercises - continue mobility protocol, frequent turning and off loading to prevent further pressure ulcers -Wound care with wound vac - Monitor hemodynamics closely -Free water flushes for hypernatremia - continue other care per attending / other consultants The patient has arrested twice and 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 She appears extremely debilitated and deconditioned and will benefit from trach and then wean off MVS. Surgery consult placed. CONDITION: CRITICAL PROGNOSIS: GUARDED CODE STATUS: FULL CODE The high probability of a clinically significant, sudden or life-threatening deterioration of the [respiratory, cardiovascular & neurologic] system(s) required my full and direct attention, intervention and personal management. The aggregate critical care time was [33] minutes without overlap. Time includes spent on; [x] Data Review and interpretation [x] Patient assessment and monitoring of vital signs [x] Documentation [x] Medication orders and management Subjective Date of service: 02/09/20 Principal diagnosis: Septic Shock; S/P Cardiac Arrest; Ac. hypoxemic resp fa ilure; UTI Interval history: Patient is seen today for: PEA arrest with ROSC, now orally intubated on MVS; Severe sepsis with shock;Acute hypoxemic respiratory failure; Acute possibly on chronic encephalopathy; DM II; UTI; VTE Seen and examined at bedside; 24hour events reviewed; nursing and respiratory care staff consulted; no adverse overnight events reported to me; resting peacefully in bed; No fevers, no vomiting. Orally intubated, awake and alert. Objective Vital Signs - 12hr 02/08/20 02/08/20 02/08/20 23:00 23:15 23:30 Temperature Pulse Rate 103 H 97 H 99 H Pulse Rate [ From Monitor] Respiratory 20 20 20 Rate Blood Pressure 120/58 120/56 107/53 O2 Sat by Pulse 100 100 100 Oximetry 02/08/20 02/08/20 02/09/20 23:42 23:45 00:00 Temperature 98.7 F Pulse Rate 105 H 101 H 97 H Pulse Rate [ 105 H From Monitor] Respiratory 20 20 Rate Blood Pressure 107/53 116/55 108/54 O2 Sat by Pulse 100 100 100 Oximetry 02/09/20 02/09/20 02/09/20 00:15 00:30 00:45 Temperature Pulse Rate 103 H 103 H 105 H Pulse Rate [ From Monitor] Respiratory 19 20 20 Rate Blood Pressure 111/61 120/58 123/59 O2 Sat by Pulse 100 100 100 Oximetry 02/09/20 02/09/20 02/09/20 01:00 01:15 01:30 Temperature Pulse Rate 107 H 105 H 113 H Pulse Rate [ From Monitor] Respiratory 20 20 21 Rate Blood Pressure 128/60 126/57 131/63 O2 Sat by Pulse 100 100 100 Oximetry 02/09/20 02/09/20 02/09/20 01:45 02:00 02:15 Temperature Pulse Rate 106 H 110 H 109 H Pulse Rate [ From Monitor] Respiratory 20 21 21 Rate Blood Pressure 118/56 123/61 125/60 O2 Sat by Pulse 100 100 100 Oximetry 02/09/20 02/09/20 02/09/20 02:30 02:45 03:00 Temperature Pulse Rate 108 H 112 H 108 H Pulse Rate [ From Monitor] Respiratory 22 20 20 Rate Blood Pressure 117/58 123/62 111/56 O2 Sat by Pulse 100 100 100 Oximetry 02/09/20 02/09/20 02/09/20 03:15 03:30 03:45 Temperature Pulse Rate 112 H 112 H 111 H Pulse Rate [ From Monitor] Respiratory 21 21 21 Rate Blood Pressure 111/56 130/63 129/62 O2 Sat by Pulse 100 100 100 Oximetry 02/09/20 02/09/20 02/09/20 04:00 04:15 04:22 Temperature 98.9 F Pulse Rate 115 H 114 H 111 H Pulse Rate [ 115 H From Monitor] Respiratory 21 22 Rate Blood Pressure 134/67 134/64 134/64 O2 Sat by Pulse 100 100 100 Oximetry 02/09/20 02/09/20 02/09/20 04:30 04:45 05:01 Temperature Pulse Rate 111 H 113 H 122 H Pulse Rate [ From Monitor] Respiratory 22 21 22 Rate Blood Pressure 121/62 121/62 129/68 O2 Sat by Pulse 100 100 100 Oximetry 02/09/20 02/09/20 02/09/20 05:15 05:31 05:45 Temperature Pulse Rate 121 H 115 H 115 H Pulse Rate [ From Monitor] Respiratory 22 21 23 Rate Blood Pressure 129/68 94/62 94/62 O2 Sat by Pulse 100 100 100 Oximetry 02/09/20 02/09/20 02/09/20 06:00 06:15 06:31 Temperature Pulse Rate 115 H 111 H 112 H Pulse Rate [ From Monitor] Respiratory 22 22 22 Rate Blood Pressure 109/65 109/65 132/63 O2 Sat by Pulse 100 100 100 Oximetry 02/09/20 02/09/20 02/09/20 06:45 07:01 07:15 Temperature Pulse Rate 108 H 105 H 106 H Pulse Rate [ From Monitor] Respiratory 22 22 18 Rate Blood Pressure 115/62 118/58 118/58 O2 Sat by Pulse 100 100 100 Oximetry 02/09/20 02/09/20 02/09/20 07:30 07:45 08:00 Temperature 98.3 F Pulse Rate 104 H 107 H 113 H Pulse Rate [ 107 H From Monitor] Respiratory 21 22 20 Rate Blood Pressure 114/57 119/66 114/63 O2 Sat by Pulse 100 100 100 Oximetry 02/09/20 02/09/20 02/09/20 08:15 08:30 08:45 Temperature Pulse Rate 110 H 106 H 107 H Pulse Rate [ From Monitor] Respiratory 23 23 23 Rate Blood Pressure 115/62 114/63 113/62 O2 Sat by Pulse 100 100 100 Oximetry 02/09/20 02/09/20 02/09/20 08:55 09:00 09:15 Temperature Pulse Rate 110 H 112 H 110 H Pulse Rate [ From Monitor] Respiratory 23 23 23 Rate Blood Pressure 123/67 123/67 123/67 O2 Sat by Pulse 100 100 100 Oximetry 02/09/20 02/09/20 02/09/20 09:30 09:45 10:00 Temperature Pulse Rate 113 H 113 H 112 H Pulse Rate [ From Monitor] Respiratory 22 25 H 23 Rate Blood Pressure 128/67 125/64 128/61 O2 Sat by Pulse 100 100 100 Oximetry 02/09/20 10:15 Temperature Pulse Rate 112 H Pulse Rate [ From Monitor] Respiratory 22 Rate Blood Pressure 117/64 O2 Sat by Pulse 100 Oximetry Constitutional: no acute distress, alert, other (elderly chronically ill looking female [place] [facility] [place] Eyes: non-icteric ENT: oropharynx moist, other (ETT 7.5 cm at 22 [address]) Neck: supple, no lymphadenopathy Effort: normal Ascultation: Bilateral: clear, diminished breath sounds, rales (bases pr edominant), rhonchi (scant) Percussion: Bilateral: not dull Cardiovascular: regular rate and rhythm, other (S1,S2) Gastrointestinal: normoactive bowel sounds, soft, non-tender, other (PEG in place) Integumentary: decubitus ulcer Extremities: no cyanosis, pulses normal, no ischemia or petechiae, edema, other (bilateral upper extremity edema) Neurologic: pupils equal and round, other (awake and alert, not obeying commands) Psychiatric: other (Unable to assess secondary to mental status) CBC and BMP: 02/09/20 Unknown 02/09/20 08:00 ABG, PT/INR, D-dimer: ABG ABG pH 7.501 (7.320-7.450) H 02/09/20 03:04 POC ABG pCO2 41.0 mmHg (32.0-48.0) 02/09/20 03:04 ABG pCO2 46.1 mm Hg 02/05/20 01:03 POC ABG pO2 100.0 mmHg (83-108) 02/09/20 03:04 ABG pO2 50.7 mm Hg (80.0-90.0) L 02/05/20 01:03 POC ABG HCO3 31.9 02/09/20 03:04 ABG O2 Saturation 82.7 % (95.0-99.0) L 02/05/20 01:03 PT/INR, D-dimer PT 14.4 Sec. (12.2-14.9) 02/02/20 05:25 INR 1.11 (0.87-1.13) 02/02/20 05:25 Abnormal lab findings: Abnormal Labs 01/08/20 01/08/20 01/08/20 16:29 16:29 16:29 WBC 13.5 H RBC Hgb Hct MCHC RDW 15.5 H Plt Count MCH Lymph % (Auto) Lymph # Lymph # (Auto) Seg Neutrophils % Seg Neuts % (Manual) 85.0 H Lymphocytes % (Manual) 11.0 L Seg Neutrophils # Seg Neutrophils # Man 11.5 H Nucleated RBC % Lymphocytes # (Manual) Monocytes # (Manual) PT INR Heparin Anti-Xa Level POC ABG pO2 ABG pH POC ABG pCO2 ABG Hemoglobin ABG Oxyhemoglobin ABG pO2 ABG HCO3 ABG O2 Saturation ABG Base Excess ABG Potassium ABG Glucose Oxyhemoglobin Sodium 161 H* Potassium Chloride 125.5 H Carbon Dioxide 20 L BUN 30 H Creatinine Glucose 115 H POC Glucose Lactic Acid 2.20 H* Calcium 7.9 L AST 48 H Phosphorus Total Protein Albumin 2.5 L C-Reactive Protein Arterial Blood Glucose Arterial Blood Ionized Calcium Urine WBC (Auto) 01/08/20 01/08/20 01/08/20 19:02 23:30 Unknown WBC RBC Hgb Hct MCHC RDW Plt Count MCH Lymph % (Auto) Lymph # Lymph # (Auto) Seg Neutrophils % Seg Neuts % (Manual) Lymphocytes % (Manual) Seg Neutrophils # Seg Neutrophils # Man Nucleated RBC % Lymphocytes # (Manual) Monocytes # (Manual) PT INR Heparin Anti-Xa Level POC ABG pO2 ABG pH POC ABG pCO2 ABG Hemoglobin ABG Oxyhemoglobin ABG pO2 ABG HCO3 ABG O2 Saturation ABG Base Excess ABG Potassium ABG Glucose Oxyhemoglobin Sodium Potassium Chloride Carbon Dioxide BUN Creatinine Glucose POC Glucose Lactic Acid 2.10 H* 2.50 H* Calcium AST Phosphorus Total Protein Albumin C-Reactive Protein Arterial Blood Glucose Arterial Blood Ionized Calcium Urine WBC (Auto) 11.0 H 01/09/20 01/09/20 01/09/20 00:19 00:54 05:52 WBC 13.5 H RBC 3.02 L Hgb 9.0 L D Hct 27.4 L D MCHC RDW Plt Count MCH Lymph % (Auto) 9.1 L Lymph # Lymph # (Auto) Seg Neutrophils % 87.6 H Seg Neuts % (Manual) Lymphocytes % (Manual) Seg Neutrophils # 11.8 H Seg Neutrophils # Man Nucleated RBC % Lymphocytes # (Manual) Monocytes # (Manual) PT INR Heparin Anti-Xa Level POC ABG pO2 ABG pH POC ABG pCO2 ABG Hemoglobin ABG Oxyhemoglobin ABG pO2 ABG HCO3 ABG O2 Saturation ABG Base Excess ABG Potassium ABG Glucose Oxyhemoglobin Sodium Potassium Chloride Carbon Dioxide BUN Creatinine Glucose POC Glucose 118 H 116 H Lactic Acid Calcium AST Phosphorus Total Protein Albumin C-Reactive Protein Arterial Blood Glucose Arterial Blood Ionized Calcium Urine WBC (Auto) 01/09/20 01/09/20 01/09/20 05:52 05:52 13:03 WBC RBC Hgb Hct MCHC RDW Plt Count MCH Lymph % (Auto) Lymph # Lymph # (Auto) Seg Neutrophils % Seg Neuts % (Manual) Lymphocytes % (Manual) Seg Neutrophils # Seg Neutrophils # Man Nucleated RBC % Lymphocytes # (Manual) Monocytes # (Manual) PT 17.1 H INR 1.36 H Heparin Anti-Xa Level POC ABG pO2 ABG pH POC ABG pCO2 ABG Hemoglobin ABG Oxyhemoglobin ABG pO2 ABG HCO3 ABG O2 Saturation ABG Base Excess ABG Potassium ABG Glucose Oxyhemoglobin Sodium 162 H* Potassium 3.0 L D Chloride 128.3 H Carbon Dioxide BUN 23 H Creatinine Glucose POC Glucose 55 L Lactic Acid Calcium 7.6 L AST Phosphorus Total Protein Albumin C-Reactive Protein Arterial Blood Glucose Arterial Blood Ionized Calcium Urine WBC (Auto) 01/09/20 01/09/20 01/09/20 21:22 21:50 22:28 WBC RBC Hgb Hct MCHC RDW Plt Count MCH Lymph % (Auto) Lymph # Lymph # (Auto) Seg Neutrophils % Seg Neuts % (Manual) Lymphocytes % (Manual) Seg Neutrophils # Seg Neutrophils # Man Nucleated RBC % Lymphocytes # (Manual) Monocytes # (Manual) PT INR Heparin Anti-Xa Level POC ABG pO2 ABG pH POC ABG pCO2 ABG Hemoglobin ABG Oxyhemoglobin ABG pO2 ABG HCO3 ABG O2 Saturation ABG Base Excess ABG Potassium ABG Glucose Oxyhemoglobin Sodium 159 H Potassium 5.1 H D Chloride 128.5 H Carbon Dioxide 16 L BUN 23 H Creatinine Glucose 51 L POC Glucose 52 L 106 H Lactic Acid Calcium 8.2 L AST Phosphorus Total Protein Albumin C-Reactive Protein Arterial Blood Glucose Arterial Blood Ionized Calcium Urine WBC (Auto) 01/10/20 01/10/20 01/10/20 05:23 09:11 10:10 WBC 13.4 H RBC Hgb Hct MCHC RDW Plt Count MCH Lymph % (Auto) 7.2 L Lymph # 1.0 L Lymph # (Auto) Seg Neutrophils % 90.0 H Seg Neuts % (Manual) Lymphocytes % (Manual) Seg Neutrophils # 12.0 H Seg Neutrophils # Man Nucleated RBC % Lymphocytes # (Manual) Monocytes # (Manual) PT INR Heparin Anti-Xa Level POC ABG pO2 ABG pH POC ABG pCO2 ABG Hemoglobin ABG Oxyhemoglobin ABG pO2 ABG HCO3 ABG O2 Saturation ABG Base Excess ABG Potassium ABG Glucose Oxyhemoglobin Sodium 155 H Potassium Chloride 122.8 H Carbon Dioxide 21 L BUN 19 H Creatinine Glucose POC Glucose 120 H Lactic Acid Calcium AST Phosphorus Total Protein Albumin C-Reactive Protein Arterial Blood Glucose Arterial Blood Ionized Calcium Urine WBC (Auto) 01/10/20 01/10/20 01/10/20 11:47 11:57 17:09 WBC RBC Hgb Hct MCHC RDW Plt Count MCH Lymph % (Auto) Lymph # Lymph # (Auto) Seg Neutrophils % Seg Neuts % (Manual) Lymphocytes % (Manual) Seg Neutrophils # Seg Neutrophils # Man Nucleated RBC % Lymphocytes # (Manual) Monocytes # (Manual) PT INR Heparin Anti-Xa Level POC ABG pO2 ABG pH POC ABG pCO2 ABG Hemoglobin ABG Oxyhemoglobin ABG pO2 ABG HCO3 ABG O2 Saturation ABG Base Excess ABG Potassium ABG Glucose Oxyhemoglobin Sodium 153 H Potassium Chloride 118.3 H Carbon Dioxide 20 L BUN 19 H Creatinine Glucose 113 H POC Glucose 142 H 125 H Lactic Acid Calcium AST Phosphorus Total Protein Albumin C-Reactive Protein Arterial Blood Glucose Arterial Blood Ionized Calcium Urine WBC (Auto) 01/10/20 01/10/20 01/11/20 20:27 22:00 00:45 WBC RBC Hgb Hct MCHC RDW Plt Count MCH Lymph % (Auto) Lymph # Lymph # (Auto) Seg Neutrophils % Seg Neuts % (Manual) Lymphocytes % (Manual) Seg Neutrophils # Seg Neutrophils # Man Nucleated RBC % Lymphocytes # (Manual) Monocytes # (Manual) PT INR Heparin Anti-Xa Level POC ABG pO2 ABG pH POC ABG pCO2 ABG Hemoglobin ABG Oxyhemoglobin ABG pO2 ABG HCO3 ABG O2 Saturation ABG Base Excess ABG Potassium ABG Glucose Oxyhemoglobin Sodium 153 H 154 H Potassium 3.3 L 3.2 L Chloride 117.0 H 118.9 H Carbon Dioxide 20 L BUN Creatinine Glucose POC Glucose 136 H Lactic Acid Calcium 8.3 L 8.0 L AST Phosphorus Total Protein Albumin C-Reactive Protein Arterial Blood Glucose Arterial Blood Ionized Calcium Urine WBC (Auto) 01/11/20 01/11/20 01/11/20 07:06 08:03 11:54 WBC RBC Hgb Hct MCHC RDW Plt Count MCH Lymph % (Auto) Lymph # Lymph # (Auto) Seg Neutrophils % Seg Neuts % (Manual) Lymphocytes % (Manual) Seg Neutrophils # Seg Neutrophils # Man Nucleated RBC % Lymphocytes # (Manual) Monocytes # (Manual) PT INR Heparin Anti-Xa Level POC ABG pO2 ABG pH POC ABG pCO2 ABG Hemoglobin ABG Oxyhemoglobin ABG pO2 ABG HCO3 ABG O2 Saturation ABG Base Excess ABG Potassium ABG Glucose Oxyhemoglobin Sodium 151 H Potassium Chloride 118.7 H Carbon Dioxide 21 L BUN Creatinine Glucose 107 H POC Glucose 118 H 164 H Lactic Acid Calcium 8.3 L AST Phosphorus Total Protein Albumin C-Reactive Protein Arterial Blood Glucose Arterial Blood Ionized Calcium Urine WBC (Auto) 01/11/20 01/12/20 01/12/20 16:28 00:19 05:40 WBC RBC Hgb Hct MCHC RDW Plt Count MCH Lymph % (Auto) Lymph # Lymph # (Auto) Seg Neutrophils % Seg Neuts % (Manual) Lymphocytes % (Manual) Seg Neutrophils # Seg Neutrophils # Man Nucleated RBC % Lymphocytes # (Manual) Monocytes # (Manual) PT INR Heparin Anti-Xa Level POC ABG pO2 ABG pH POC ABG pCO2 ABG Hemoglobin ABG Oxyhemoglobin ABG pO2 ABG HCO3 ABG O2 Saturation ABG Base Excess ABG Potassium ABG Glucose Oxyhemoglobin Sodium 148 H Potassium Chloride 111.6 H Carbon Dioxide 19 L BUN Creatinine Glucose 128 H POC Glucose 132 H 179 H Lactic Acid Calcium 8.2 L AST Phosphorus Total Protein Albumin C-Reactive Protein Arterial Blood Glucose Arterial Blood Ionized Calcium Urine WBC (Auto) 01/12/20 01/12/20 01/12/20 06:17 11:37 17:21 WBC RBC Hgb Hct MCHC RDW Plt Count MCH Lymph % (Auto) Lymph # Lymph # (Auto) Seg Neutrophils % Seg Neuts % (Manual) Lymphocytes % (Manual) Seg Neutrophils # Seg Neutrophils # Man Nucleated RBC % Lymphocytes # (Manual) Monocytes # (Manual) PT INR Heparin Anti-Xa Level POC ABG pO2 ABG pH POC ABG pCO2 ABG Hemoglobin ABG Oxyhemoglobin ABG pO2 ABG HCO3 ABG O2 Saturation ABG Base Excess ABG Potassium ABG Glucose Oxyhemoglobin Sodium Potassium Chloride Carbon Dioxide BUN Creatinine Glucose POC Glucose 140 H 142 H 133 H Lactic Acid Calcium AST Phosphorus Total Protein Albumin C-Reactive Protein Arterial Blood Glucose Arterial Blood Ionized Calcium Urine WBC (Auto) 01/12/20 01/13/20 01/13/20 23:14 05:26 07:00 WBC RBC Hgb Hct MCHC RDW Plt Count MCH Lymph % (Auto) Lymph # Lymph # (Auto) Seg Neutrophils % Seg Neuts % (Manual) Lymphocytes % (Manual) Seg Neutrophils # Seg Neutrophils # Man Nucleated RBC % Lymphocytes # (Manual) Monocytes # (Manual) PT INR Heparin Anti-Xa Level POC ABG pO2 ABG pH POC ABG pCO2 ABG Hemoglobin ABG Oxyhemoglobin ABG pO2 ABG HCO3 ABG O2 Saturation ABG Base Excess ABG Potassium ABG Glucose Oxyhemoglobin Sodium Potassium Chloride 110.0 H Carbon Dioxide BUN Creatinine Glucose 139 H POC Glucose 135 H 162 H Lactic Acid Calcium 7.8 L AST Phosphorus Total Protein Albumin C-Reactive Protein Arterial Blood Glucose Arterial Blood Ionized Calcium Urine WBC (Auto) 01/13/20 01/13/20 01/13/20 12:14 17:52 21:40 WBC RBC Hgb Hct MCHC RDW Plt Count MCH Lymph % (Auto) Lymph # Lymph # (Auto) Seg Neutrophils % Seg Neuts % (Manual) Lymphocytes % (Manual) Seg Neutrophils # Seg Neutrophils # Man Nucleated RBC % Lymphocytes # (Manual) Monocytes # (Manual) PT INR Heparin Anti-Xa Level POC ABG pO2 ABG pH POC ABG pCO2 ABG Hemoglobin ABG Oxyhemoglobin ABG pO2 ABG HCO3 ABG O2 Saturation ABG Base Excess ABG Potassium ABG Glucose Oxyhemoglobin Sodium Potassium Chloride Carbon Dioxide BUN Creatinine Glucose POC Glucose 205 H 172 H 186 H Lactic Acid Calcium AST Phosphorus Total Protein Albumin C-Reactive Protein Arterial Blood Glucose Arterial Blood Ionized Calcium Urine WBC (Auto) 01/14/20 01/14/20 01/14/20 04:28 11:01 11:01 WBC 14.8 H RBC 3.20 L Hgb 9.5 L Hct 28.0 L MCHC RDW Plt Count MCH Lymph % (Auto) Lymph # Lymph # (Auto) Seg Neutrophils % Seg Neuts % (Manual) Lymphocytes % (Manual) Seg Neutrophils # Seg Neutrophils # Man Nucleated RBC % Lymphocytes # (Manual) Monocytes # (Manual) PT INR Heparin Anti-Xa Level POC ABG pO2 ABG pH POC ABG pCO2 ABG Hemoglobin ABG Oxyhemoglobin ABG pO2 ABG HCO3 ABG O2 Saturation ABG Base Excess ABG Potassium ABG Glucose Oxyhemoglobin Sodium Potassium 3.2 L Chloride Carbon Dioxide BUN Creatinine 0.4 L Glucose POC Glucose 115 H Lactic Acid Calcium 8.0 L AST Phosphorus Total Protein Albumin C-Reactive Protein Arterial Blood Glucose Arterial Blood Ionized Calcium Urine WBC (Auto) 01/14/20 01/14/20 01/14/20 11:01 16:33 22:32 WBC RBC Hgb Hct MCHC RDW Plt Count MCH Lymph % (Auto) Lymph # Lymph # (Auto) Seg Neutrophils % Seg Neuts % (Manual) Lymphocytes % (Manual) Seg Neutrophils # Seg Neutrophils # Man Nucleated RBC % Lymphocytes # (Manual) Monocytes # (Manual) PT 15.8 H INR 1.23 H Heparin Anti-Xa Level POC ABG pO2 ABG pH POC ABG pCO2 ABG Hemoglobin ABG Oxyhemoglobin ABG pO2 ABG HCO3 ABG O2 Saturation ABG Base Excess ABG Potassium ABG Glucose Oxyhemoglobin Sodium Potassium Chloride Carbon Dioxide BUN Creatinine Glucose POC Glucose 58 L 188 H Lactic Acid Calcium AST Phosphorus Total Protein Albumin C-Reactive Protein Arterial Blood Glucose Arterial Blood Ionized Calcium Urine WBC (Auto) 01/15/20 01/15/20 01/15/20 05:35 06:19 17:17 WBC RBC Hgb Hct MCHC RDW Plt Count MCH Lymph % (Auto) Lymph # Lymph # (Auto) Seg Neutrophils % Seg Neuts % (Manual) Lymphocytes % (Manual) Seg Neutrophils # Seg Neutrophils # Man Nucleated RBC % Lymphocytes # (Manual) Monocytes # (Manual) PT INR Heparin Anti-Xa Level POC ABG pO2 ABG pH POC ABG pCO2 ABG Hemoglobin ABG Oxyhemoglobin ABG pO2 ABG HCO3 ABG O2 Saturation ABG Base Excess ABG Potassium ABG Glucose Oxyhemoglobin Sodium Potassium Chloride Carbon Dioxide BUN Creatinine 0.5 L Glucose 104 H POC Glucose 106 H 183 H Lactic Acid Calcium 7.8 L AST Phosphorus Total Protein Albumin C-Reactive Protein Arterial Blood Glucose Arterial Blood Ionized Calcium Urine WBC (Auto) 01/15/20 01/16/20 01/16/20 22:29 05:35 05:59 WBC 14.7 H RBC 3.04 L Hgb 9.0 L Hct 27.0 L MCHC RDW Plt Count MCH Lymph % (Auto) 9.1 L Lymph # Lymph # (Auto) Seg Neutrophils % 87.3 H Seg Neuts % (Manual) Lymphocytes % (Manual) Seg Neutrophils # 12.9 H Seg Neutrophils # Man Nucleated RBC % Lymphocytes # (Manual) Monocytes # (Manual) PT INR Heparin Anti-Xa Level POC ABG pO2 ABG pH POC ABG pCO2 ABG Hemoglobin ABG Oxyhemoglobin ABG pO2 ABG HCO3 ABG O2 Saturation ABG Base Excess ABG Potassium ABG Glucose Oxyhemoglobin Sodium Potassium Chloride Carbon Dioxide BUN Creatinine Glucose POC Glucose 228 H 130 H Lactic Acid Calcium AST Phosphorus Total Protein Albumin C-Reactive Protein Arterial Blood Glucose Arterial Blood Ionized Calcium Urine WBC (Auto) 01/16/20 01/16/20 01/16/20 09:52 12:49 17:30 WBC RBC Hgb Hct MCHC RDW Plt Count MCH Lymph % (Auto) Lymph # Lymph # (Auto) Seg Neutrophils % Seg Neuts % (Manual) Lymphocytes % (Manual) Seg Neutrophils # Seg Neutrophils # Man Nucleated RBC % Lymphocytes # (Manual) Monocytes # (Manual) PT INR Heparin Anti-Xa Level POC ABG pO2 ABG pH POC ABG pCO2 ABG Hemoglobin ABG Oxyhemoglobin ABG pO2 ABG HCO3 ABG O2 Saturation ABG Base Excess ABG Potassium ABG Glucose Oxyhemoglobin Sodium Potassium Chloride Carbon Dioxide BUN Creatinine Glucose POC Glucose 122 H 142 H 192 H Lactic Acid Calcium AST Phosphorus Total Protein Albumin C-Reactive Protein Arterial Blood Glucose Arterial Blood Ionized Calcium Urine WBC (Auto) 01/16/20 01/17/20 01/17/20 23:01 08:36 08:36 WBC 12.7 H RBC 2.98 L Hgb 8.9 L Hct 26.4 L MCHC RDW Plt Count MCH Lymph % (Auto) 8.8 L Lymph # 1.1 L Lymph # (Auto) Seg Neutrophils % 86.7 H Seg Neuts % (Manual) Lymphocytes % (Manual) Seg Neutrophils # 11.0 H Seg Neutrophils # Man Nucleated RBC % Lymphocytes # (Manual) Monocytes # (Manual) PT INR Heparin Anti-Xa Level POC ABG pO2 ABG pH POC ABG pCO2 ABG Hemoglobin ABG Oxyhemoglobin ABG pO2 ABG HCO3 ABG O2 Saturation ABG Base Excess ABG Potassium ABG Glucose Oxyhemoglobin Sodium Potassium 3.3 L D Chloride Carbon Dioxide BUN Creatinine 0.4 L Glucose POC Glucose 141 H Lactic Acid Calcium 8.1 L AST Phosphorus Total Protein 4.6 L Albumin 1.6 L C-Reactive Protein Arterial Blood Glucose Arterial Blood Ionized Calcium Urine WBC (Auto) 01/17/20 01/17/20 01/18/20 11:43 23:56 06:27 WBC RBC Hgb Hct MCHC RDW Plt Count MCH Lymph % (Auto) Lymph # Lymph # (Auto) Seg Neutrophils % Seg Neuts % (Manual) Lymphocytes % (Manual) Seg Neutrophils # Seg Neutrophils # Man Nucleated RBC % Lymphocytes # (Manual) Monocytes # (Manual) PT INR Heparin Anti-Xa Level POC ABG pO2 ABG pH POC ABG pCO2 ABG Hemoglobin ABG Oxyhemoglobin ABG pO2 ABG HCO3 ABG O2 Saturation ABG Base Excess ABG Potassium ABG Glucose Oxyhemoglobin Sodium Potassium Chloride Carbon Dioxide BUN Creatinine Glucose POC Glucose 137 H 215 H 122 H Lactic Acid Calcium AST Phosphorus Total Protein Albumin C-Reactive Protein Arterial Blood Glucose Arterial Blood Ionized Calcium Urine WBC (Auto) 01/18/20 01/18/20 01/18/20 07:31 07:31 11:39 WBC 12.1 H RBC 3.23 L Hgb 9.7 L Hct 28.7 L MCHC RDW Plt Count MCH Lymph % (Auto) 9.2 L Lymph # 1.1 L Lymph # (Auto) Seg Neutrophils % 85.0 H Seg Neuts % (Manual) Lymphocytes % (Manual) Seg Neutrophils # 10.3 H Seg Neutrophils # Man Nucleated RBC % Lymphocytes # (Manual) Monocytes # (Manual) PT INR Heparin Anti-Xa Level POC ABG pO2 ABG pH POC ABG pCO2 ABG Hemoglobin ABG Oxyhemoglobin ABG pO2 ABG HCO3 ABG O2 Saturation ABG Base Excess ABG Potassium ABG Glucose Oxyhemoglobin Sodium Potassium Chloride Carbon Dioxide BUN Creatinine 0.4 L Glucose 108 H POC Glucose 172 H Lactic Acid Calcium AST Phosphorus Total Protein 5.3 L Albumin 2.1 L C-Reactive Protein Arterial Blood Glucose Arterial Blood Ionized Calcium Urine WBC (Auto) 01/18/20 01/19/20 01/19/20 18:22 00:15 11:30 WBC RBC Hgb Hct MCHC RDW Plt Count MCH Lymph % (Auto) Lymph # Lymph # (Auto) Seg Neutrophils % Seg Neuts % (Manual) Lymphocytes % (Manual) Seg Neutrophils # Seg Neutrophils # Man Nucleated RBC % Lymphocytes # (Manual) Monocytes # (Manual) PT INR Heparin Anti-Xa Level POC ABG pO2 ABG pH POC ABG pCO2 ABG Hemoglobin ABG Oxyhemoglobin ABG pO2 ABG HCO3 ABG O2 Saturation ABG Base Excess ABG Potassium ABG Glucose Oxyhemoglobin Sodium Potassium Chloride Carbon Dioxide BUN Creatinine Glucose POC Glucose 119 H 135 H 163 H Lactic Acid Calcium AST Phosphorus Total Protein Albumin C-Reactive Protein Arterial Blood Glucose Arterial Blood Ionized Calcium Urine WBC (Auto) 01/19/20 01/19/20 01/20/20 17:44 22:59 03:44 WBC 11.1 H RBC 2.77 L Hgb 8.4 L Hct 25.0 L MCHC RDW Plt Count MCH Lymph % (Auto) Lymph # Lymph # (Auto) Seg Neutrophils % 74.6 H Seg Neuts % (Manual) Lymphocytes % (Manual) Seg Neutrophils # 8.3 H Seg Neutrophils # Man Nucleated RBC % Lymphocytes # (Manual) Monocytes # (Manual) PT INR Heparin Anti-Xa Level POC ABG pO2 ABG pH POC ABG pCO2 ABG Hemoglobin ABG Oxyhemoglobin ABG pO2 ABG HCO3 ABG O2 Saturation ABG Base Excess ABG Potassium ABG Glucose Oxyhemoglobin Sodium Potassium Chloride Carbon Dioxide BUN Creatinine Glucose POC Glucose 161 H 182 H Lactic Acid Calcium AST Phosphorus Total Protein Albumin C-Reactive Protein Arterial Blood Glucose Arterial Blood Ionized Calcium Urine WBC (Auto) 01/20/20 01/21/20 01/21/20 03:44 00:07 05:51 WBC RBC 2.84 L Hgb 8.6 L Hct 25.5 L MCHC RDW Plt Count 463 H MCH Lymph % (Auto) Lymph # Lymph # (Auto) Seg Neutrophils % 76.9 H Seg Neuts % (Manual) Lymphocytes % (Manual) Seg Neutrophils # 7.8 H Seg Neutrophils # Man Nucleated RBC % Lymphocytes # (Manual) Monocytes # (Manual) PT INR Heparin Anti-Xa Level POC ABG pO2 ABG pH POC ABG pCO2 ABG Hemoglobin ABG Oxyhemoglobin ABG pO2 ABG HCO3 ABG O2 Saturation ABG Base Excess ABG Potassium ABG Glucose Oxyhemoglobin Sodium Potassium Chloride Carbon Dioxide BUN Creatinine 0.4 L Glucose POC Glucose 68 L Lactic Acid Calcium 7.9 L AST Phosphorus Total Protein 4.7 L Albumin 1.9 L C-Reactive Protein Arterial Blood Glucose Arterial Blood Ionized Calcium Urine WBC (Auto) 01/21/20 01/21/20 01/21/20 05:51 05:58 11:25 WBC RBC Hgb Hct MCHC RDW Plt Count MCH Lymph % (Auto) Lymph # Lymph # (Auto) Seg Neutrophils % Seg Neuts % (Manual) Lymphocytes % (Manual) Seg Neutrophils # Seg Neutrophils # Man Nucleated RBC % Lymphocytes # (Manual) Monocytes # (Manual) PT INR Heparin Anti-Xa Level POC ABG pO2 ABG pH POC ABG pCO2 ABG Hemoglobin ABG Oxyhemoglobin ABG pO2 ABG HCO3 ABG O2 Saturation ABG Base Excess ABG Potassium ABG Glucose Oxyhemoglobin Sodium Potassium Chloride Carbon Dioxide 20 L BUN Creatinine 0.5 L Glucose 130 H POC Glucose 185 H 163 H Lactic Acid Calcium 7.6 L AST Phosphorus Total Protein 5.0 L Albumin 1.9 L C-Reactive Protein Arterial Blood Glucose Arterial Blood Ionized Calcium Urine WBC (Auto) 01/21/20 01/21/20 01/22/20 16:22 21:17 01:28 WBC RBC 2.60 L Hgb 8.0 L Hct 23.3 L MCHC RDW Plt Count MCH Lymph % (Auto) Lymph # Lymph # (Auto) Seg Neutrophils % 74.8 H Seg Neuts % (Manual) Lymphocytes % (Manual) Seg Neutrophils # Seg Neutrophils # Man Nucleated RBC % Lymphocytes # (Manual) Monocytes # (Manual) PT INR Heparin Anti-Xa Level POC ABG pO2 ABG pH POC ABG pCO2 ABG Hemoglobin ABG Oxyhemoglobin ABG pO2 ABG HCO3 ABG O2 Saturation ABG Base Excess ABG Potassium ABG Glucose Oxyhemoglobin Sodium Potassium Chloride Carbon Dioxide BUN Creatinine Glucose POC Glucose 177 H 67 L Lactic Acid Calcium AST Phosphorus Total Protein Albumin C-Reactive Protein Arterial Blood Glucose Arterial Blood Ionized Calcium Urine WBC (Auto) 01/22/20 01/22/20 01/22/20 01:28 01:28 12:06 WBC RBC Hgb Hct MCHC RDW Plt Count MCH Lymph % (Auto) Lymph # Lymph # (Auto) Seg Neutrophils % Seg Neuts % (Manual) Lymphocytes % (Manual) Seg Neutrophils # Seg Neutrophils # Man Nucleated RBC % Lymphocytes # (Manual) Monocytes # (Manual) PT INR Heparin Anti-Xa Level POC ABG pO2 ABG pH POC ABG pCO2 ABG Hemoglobin ABG Oxyhemoglobin ABG pO2 ABG HCO3 ABG O2 Saturation ABG Base Excess ABG Potassium ABG Glucose Oxyhemoglobin Sodium Potassium Chloride 107.6 H Carbon Dioxide BUN Creatinine 0.4 L Glucose 152 H POC Glucose 203 H 140 H Lactic Acid Calcium 7.5 L AST Phosphorus Total Protein 4.0 L Albumin 2.0 L C-Reactive Protein Arterial Blood Glucose Arterial Blood Ionized Calcium Urine WBC (Auto) 01/22/20 01/22/20 01/23/20 16:24 22:55 06:10 WBC RBC 2.68 L Hgb 8.6 L Hct 24.1 L MCHC 36 H RDW Plt Count MCH Lymph % (Auto) Lymph # Lymph # (Auto) Seg Neutrophils % Seg Neuts % (Manual) 71.0 H Lymphocytes % (Manual) Seg Neutrophils # Seg Neutrophils # Man Nucleated RBC % Lymphocytes # (Manual) Monocytes # (Manual) PT INR Heparin Anti-Xa Level POC ABG pO2 ABG pH POC ABG pCO2 ABG Hemoglobin ABG Oxyhemoglobin ABG pO2 ABG HCO3 ABG O2 Saturation ABG Base Excess ABG Potassium ABG Glucose Oxyhemoglobin Sodium Potassium Chloride Carbon Dioxide BUN Creatinine Glucose POC Glucose 205 H 196 H Lactic Acid Calcium AST Phosphorus Total Protein Albumin C-Reactive Protein Arterial Blood Glucose Arterial Blood Ionized Calcium Urine WBC (Auto) 01/23/20 01/23/20 01/23/20 06:10 07:35 11:59 WBC RBC Hgb Hct MCHC RDW Plt Count MCH Lymph % (Auto) Lymph # Lymph # (Auto) Seg Neutrophils % Seg Neuts % (Manual) Lymphocytes % (Manual) Seg Neutrophils # Seg Neutrophils # Man Nucleated RBC % Lymphocytes # (Manual) Monocytes # (Manual) PT INR Heparin Anti-Xa Level POC ABG pO2 ABG pH POC ABG pCO2 ABG Hemoglobin ABG Oxyhemoglobin ABG pO2 ABG HCO3 ABG O2 Saturation ABG Base Excess ABG Potassium ABG Glucose Oxyhemoglobin Sodium Potassium Chloride 108.8 H Carbon Dioxide BUN Creatinine 0.4 L Glucose 105 H POC Glucose 111 H 123 H Lactic Acid Calcium 8.0 L AST Phosphorus Total Protein 4.9 L D Albumin 2.0 L C-Reactive Protein Arterial Blood Glucose Arterial Blood Ionized Calcium Urine WBC (Auto) 01/23/20 01/24/20 01/24/20 22:45 11:24 16:41 WBC RBC Hgb Hct MCHC RDW Plt Count MCH Lymph % (Auto) Lymph # Lymph # (Auto) Seg Neutrophils % Seg Neuts % (Manual) Lymphocytes % (Manual) Seg Neutrophils # Seg Neutrophils # Man Nucleated RBC % Lymphocytes # (Manual) Monocytes # (Manual) PT INR Heparin Anti-Xa Level POC ABG pO2 ABG pH POC ABG pCO2 ABG Hemoglobin ABG Oxyhemoglobin ABG pO2 ABG HCO3 ABG O2 Saturation ABG Base Excess ABG Potassium ABG Glucose Oxyhemoglobin Sodium Potassium Chloride Carbon Dioxide BUN Creatinine Glucose POC Glucose 180 H 182 H 177 H Lactic Acid Calcium AST Phosphorus Total Protein Albumin C-Reactive Protein Arterial Blood Glucose Arterial Blood Ionized Calcium Urine WBC (Auto) 01/24/20 01/25/20 01/25/20 23:11 07:12 11:35 WBC RBC Hgb Hct MCHC RDW Plt Count MCH Lymph % (Auto) Lymph # Lymph # (Auto) Seg Neutrophils % Seg Neuts % (Manual) Lymphocytes % (Manual) Seg Neutrophils # Seg Neutrophils # Man Nucleated RBC % Lymphocytes # (Manual) Monocytes # (Manual) PT INR Heparin Anti-Xa Level POC ABG pO2 ABG pH POC ABG pCO2 ABG Hemoglobin ABG Oxyhemoglobin ABG pO2 ABG HCO3 ABG O2 Saturation ABG Base Excess ABG Potassium ABG Glucose Oxyhemoglobin Sodium Potassium Chloride Carbon Dioxide BUN Creatinine Glucose POC Glucose 142 H 135 H 142 H Lactic Acid Calcium AST Phosphorus Total Protein Albumin C-Reactive Protein Arterial Blood Glucose Arterial Blood Ionized Calcium Urine WBC (Auto) 01/25/20 01/26/20 01/26/20 16:33 00:04 11:35 WBC RBC Hgb Hct MCHC RDW Plt Count MCH Lymph % (Auto) Lymph # Lymph # (Auto) Seg Neutrophils % Seg Neuts % (Manual) Lymphocytes % (Manual) Seg Neutrophils # Seg Neutrophils # Man Nucleated RBC % Lymphocytes # (Manual) Monocytes # (Manual) PT INR Heparin Anti-Xa Level POC ABG pO2 ABG pH POC ABG pCO2 ABG Hemoglobin ABG Oxyhemoglobin ABG pO2 ABG HCO3 ABG O2 Saturation ABG Base Excess ABG Potassium ABG Glucose Oxyhemoglobin Sodium Potassium Chloride Carbon Dioxide BUN Creatinine Glucose POC Glucose 247 H 233 H 200 H Lactic Acid Calcium AST Phosphorus Total Protein Albumin C-Reactive Protein Arterial Blood Glucose Arterial Blood Ionized Calcium Urine WBC (Auto) 01/26/20 01/26/20 01/26/20 16:30 16:30 17:19 WBC RBC Hgb 7.4 L Hct 22.0 L MCHC RDW Plt Count MCH Lymph % (Auto) Lymph # Lymph # (Auto) Seg Neutrophils % Seg Neuts % (Manual) Lymphocytes % (Manual) Seg Neutrophils # Seg Neutrophils # Man Nucleated RBC % Lymphocytes # (Manual) Monocytes # (Manual) PT 18.4 H INR 1.50 H Heparin Anti-Xa Level POC ABG pO2 ABG pH POC ABG pCO2 ABG Hemoglobin ABG Oxyhemoglobin ABG pO2 ABG HCO3 ABG O2 Saturation ABG Base Excess ABG Potassium ABG Glucose Oxyhemoglobin Sodium Potassium Chloride Carbon Dioxide BUN Creatinine Glucose POC Glucose 67 L Lactic Acid Calcium AST Phosphorus Total Protein Albumin C-Reactive Protein Arterial Blood Glucose Arterial Blood Ionized Calcium Urine WBC (Auto) 01/26/20 01/26/20 01/27/20 20:24 21:32 00:16 WBC RBC Hgb Hct MCHC RDW Plt Count MCH Lymph % (Auto) Lymph # Lymph # (Auto) Seg Neutrophils % Seg Neuts % (Manual) Lymphocytes % (Manual) Seg Neutrophils # Seg Neutrophils # Man Nucleated RBC % Lymphocytes # (Manual) Monocytes # (Manual) PT INR Heparin Anti-Xa Level POC ABG pO2 51.8 L ABG pH POC ABG pCO2 ABG Hemoglobin 8.5 L ABG Oxyhemoglobin 84.7 L ABG pO2 ABG HCO3 ABG O2 Saturation ABG Base Excess ABG Potassium ABG Glucose Oxyhemoglobin Sodium Potassium Chloride Carbon Dioxide BUN Creatinine Glucose POC Glucose 162 H 141 H Lactic Acid Calcium AST Phosphorus Total Protein Albumin C-Reactive Protein Arterial Blood Glucose Arterial Blood Ionized Calcium Urine WBC (Auto) 01/27/20 01/27/20 01/27/20 01:42 02:18 05:57 WBC RBC Hgb Hct MCHC RDW Plt Count MCH Lymph % (Auto) Lymph # Lymph # (Auto) Seg Neutrophils % Seg Neuts % (Manual) Lymphocytes % (Manual) Seg Neutrophils # Seg Neutrophils # Man Nucleated RBC % Lymphocytes # (Manual) Monocytes # (Manual) PT INR Heparin Anti-Xa Level 2.00 H POC ABG pO2 ABG pH POC ABG pCO2 ABG Hemoglobin ABG Oxyhemoglobin ABG pO2 ABG HCO3 ABG O2 Saturation ABG Base Excess ABG Potassium ABG Glucose Oxyhemoglobin Sodium Potassium Chloride Carbon Dioxide BUN Creatinine Glucose POC Glucose 183 H 124 H Lactic Acid Calcium AST Phosphorus Total Protein Albumin C-Reactive Protein Arterial Blood Glucose Arterial Blood Ionized Calcium Urine WBC (Auto) 01/27/20 01/27/20 01/27/20 06:30 06:30 12:23 WBC RBC 2.75 L Hgb 8.4 L Hct 24.9 L MCHC RDW 16.0 H Plt Count 474 H MCH Lymph % (Auto) 12.7 L Lymph # Lymph # (Auto) Seg Neutrophils % 83.2 H Seg Neuts % (Manual) Lymphocytes % (Manual) Seg Neutrophils # 8.4 H Seg Neutrophils # Man Nucleated RBC % Lymphocytes # (Manual) Monocytes # (Manual) PT INR Heparin Anti-Xa Level POC ABG pO2 ABG pH POC ABG pCO2 ABG Hemoglobin ABG Oxyhemoglobin ABG pO2 ABG HCO3 ABG O2 Saturation ABG Base Excess ABG Potassium ABG Glucose Oxyhemoglobin Sodium Potassium 3.5 L Chloride 110.2 H Carbon Dioxide BUN Creatinine 0.4 L Glucose 101 H POC Glucose 126 H Lactic Acid Calcium 7.8 L AST Phosphorus Total Protein Albumin C-Reactive Protein Arterial Blood Glucose Arterial Blood Ionized Calcium Urine WBC (Auto) 01/27/20 01/27/20 01/28/20 17:31 23:40 00:00 WBC RBC Hgb Hct MCHC RDW Plt Count MCH Lymph % (Auto) Lymph # Lymph # (Auto) Seg Neutrophils % Seg Neuts % (Manual) Lymphocytes % (Manual) Seg Neutrophils # Seg Neutrophils # Man Nucleated RBC % Lymphocytes # (Manual) Monocytes # (Manual) PT INR Heparin Anti-Xa Level 2.00 H POC ABG pO2 ABG pH POC ABG pCO2 ABG Hemoglobin ABG Oxyhemoglobin ABG pO2 ABG HCO3 ABG O2 Saturation ABG Base Excess ABG Potassium ABG Glucose Oxyhemoglobin Sodium Potassium Chloride Carbon Dioxide BUN Creatinine Glucose POC Glucose 133 H 136 H Lactic Acid Calcium AST Phosphorus Total Protein Albumin C-Reactive Protein Arterial Blood Glucose Arterial Blood Ionized Calcium Urine WBC (Auto) 01/28/20 01/28/20 01/28/20 04:26 04:26 05:35 WBC RBC Hgb 9.6 L Hct 28.5 L MCHC RDW Plt Count 508 H MCH Lymph % (Auto) Lymph # Lymph # (Auto) Seg Neutrophils % Seg Neuts % (Manual) Lymphocytes % (Manual) Seg Neutrophils # Seg Neutrophils # Man Nucleated RBC % Lymphocytes # (Manual) Monocytes # (Manual) PT INR Heparin Anti-Xa Level POC ABG pO2 ABG pH POC ABG pCO2 ABG Hemoglobin ABG Oxyhemoglobin ABG pO2 ABG HCO3 ABG O2 Saturation ABG Base Excess ABG Potassium ABG Glucose Oxyhemoglobin Sodium Potassium Chloride Carbon Dioxide 19 L BUN 20 H Creatinine 0.5 L Glucose 103 H POC Glucose 135 H Lactic Acid Calcium 7.9 L AST Phosphorus Total Protein Albumin C-Reactive Protein Arterial Blood Glucose Arterial Blood Ionized Calcium Urine WBC (Auto) 01/28/20 01/28/20 01/28/20 08:50 11:10 11:51 WBC RBC Hgb Hct MCHC RDW Plt Count MCH Lymph % (Auto) Lymph # Lymph # (Auto) Seg Neutrophils % Seg Neuts % (Manual) Lymphocytes % (Manual) Seg Neutrophils # Seg Neutrophils # Man Nucleated RBC % Lymphocytes # (Manual) Monocytes # (Manual) PT INR Heparin Anti-Xa Level 0.74 H POC ABG pO2 67.2 L ABG pH POC ABG pCO2 ABG Hemoglobin 9.3 L ABG Oxyhemoglobin ABG pO2 ABG HCO3 ABG O2 Saturation ABG Base Excess ABG Potassium ABG Glucose Oxyhemoglobin Sodium Potassium Chloride Carbon Dioxide BUN Creatinine Glucose POC Glucose 160 H Lactic Acid Calcium AST Phosphorus Total Protein Albumin C-Reactive Protein Arterial Blood Glucose Arterial Blood Ionized Calcium Urine WBC (Auto) 01/28/20 01/28/20 01/29/20 17:19 23:53 03:52 WBC RBC Hgb Hct MCHC RDW Plt Count MCH Lymph % (Auto) Lymph # Lymph # (Auto) Seg Neutrophils % Seg Neuts % (Manual) Lymphocytes % (Manual) Seg Neutrophils # Seg Neutrophils # Man Nucleated RBC % Lymphocytes # (Manual) Monocytes # (Manual) PT INR Heparin Anti-Xa Level POC ABG pO2 ABG pH 7.510 H POC ABG pCO2 ABG Hemoglobin 7.3 L ABG Oxyhemoglobin ABG pO2 357.0 H ABG HCO3 19.6 L ABG O2 Saturation 99.6 H ABG Base Excess -2.9 L ABG Potassium ABG Glucose Oxyhemoglobin Sodium Potassium Chloride Carbon Dioxide BUN Creatinine Glucose POC Glucose 177 H 142 H Lactic Acid Calcium AST Phosphorus Total Protein Albumin C-Reactive Protein Arterial Blood Glucose Arterial Blood Ionized Calcium Urine WBC (Auto) 01/29/20 01/29/20 01/29/20 04:58 04:58 06:01 WBC 13.1 H RBC 2.75 L Hgb 8.6 L Hct 25.6 L MCHC RDW 17.7 H Plt Count MCH Lymph % (Auto) Lymph # Lymph # (Auto) Seg Neutrophils % Seg Neuts % (Manual) 91.0 H Lymphocytes % (Manual) 6.0 L Seg Neutrophils # Seg Neutrophils # Man 11.9 H Nucleated RBC % 1.0 H Lymphocytes # (Manual) 0.8 L Monocytes # (Manual) PT INR Heparin Anti-Xa Level POC ABG pO2 ABG pH POC ABG pCO2 ABG Hemoglobin ABG Oxyhemoglobin ABG pO2 ABG HCO3 ABG O2 Saturation ABG Base Excess ABG Potassium ABG Glucose Oxyhemoglobin Sodium 148 H Potassium 3.5 L D Chloride 113.2 H Carbon Dioxide 21 L BUN 20 H Creatinine Glucose 137 H POC Glucose 167 H Lactic Acid Calcium 8.1 L AST Phosphorus Total Protein Albumin C-Reactive Protein Arterial Blood Glucose Arterial Blood Ionized Calcium Urine WBC (Auto) 01/29/20 01/29/20 01/29/20 11:45 17:52 23:49 WBC RBC Hgb Hct MCHC RDW Plt Count MCH Lymph % (Auto) Lymph # Lymph # (Auto) Seg Neutrophils % Seg Neuts % (Manual) Lymphocytes % (Manual) Seg Neutrophils # Seg Neutrophils # Man Nucleated RBC % Lymphocytes # (Manual) Monocytes # (Manual) PT INR Heparin Anti-Xa Level POC ABG pO2 ABG pH POC ABG pCO2 ABG Hemoglobin ABG Oxyhemoglobin ABG pO2 ABG HCO3 ABG O2 Saturation ABG Base Excess ABG Potassium ABG Glucose Oxyhemoglobin Sodium Potassium Chloride Carbon Dioxide BUN Creatinine Glucose POC Glucose 185 H 226 H 141 H Lactic Acid Calcium AST Phosphorus Total Protein Albumin C-Reactive Protein Arterial Blood Glucose Arterial Blood Ionized Calcium Urine WBC (Auto) 01/29/20 01/30/20 01/30/20 Unknown 03:24 04:00 WBC RBC Hgb 7.8 L Hct 23.5 L MCHC RDW Plt Count MCH Lymph % (Auto) Lymph # Lymph # (Auto) Seg Neutrophils % Seg Neuts % (Manual) Lymphocytes % (Manual) Seg Neutrophils # Seg Neutrophils # Man Nucleated RBC % Lymphocytes # (Manual) Monocytes # (Manual) PT INR Heparin Anti-Xa Level POC ABG pO2 ABG pH 7.485 H POC ABG pCO2 ABG Hemoglobin 6.7 L ABG Oxyhemoglobin ABG pO2 102.0 H ABG HCO3 ABG O2 Saturation ABG Base Excess ABG Potassium ABG Glucose Oxyhemoglobin Sodium Potassium Chloride Carbon Dioxide BUN Creatinine Glucose POC Glucose Lactic Acid Calcium AST Phosphorus Total Protein Albumin C-Reactive Protein 14.80 H Arterial Blood Glucose Arterial Blood Ionized Calcium Urine WBC (Auto) 01/30/20 01/30/20 01/30/20 05:50 11:15 17:07 WBC RBC Hgb Hct MCHC RDW Plt Count MCH Lymph % (Auto) Lymph # Lymph # (Auto) Seg Neutrophils % Seg Neuts % (Manual) Lymphocytes % (Manual) Seg Neutrophils # Seg Neutrophils # Man Nucleated RBC % Lymphocytes # (Manual) Monocytes # (Manual) PT INR Heparin Anti-Xa Level POC ABG pO2 ABG pH POC ABG pCO2 ABG Hemoglobin ABG Oxyhemoglobin ABG pO2 ABG HCO3 ABG O2 Saturation ABG Base Excess ABG Potassium ABG Glucose Oxyhemoglobin Sodium Potassium Chloride Carbon Dioxide BUN Creatinine Glucose POC Glucose 122 H 207 H 124 H Lactic Acid Calcium AST Phosphorus Total Protein Albumin C-Reactive Protein Arterial Blood Glucose Arterial Blood Ionized Calcium Urine WBC (Auto) 01/30/20 01/31/20 01/31/20 17:08 00:10 04:52 WBC RBC Hgb Hct MCHC RDW Plt Count MCH Lymph % (Auto) Lymph # Lymph # (Auto) Seg Neutrophils % Seg Neuts % (Manual) Lymphocytes % (Manual) Seg Neutrophils # Seg Neutrophils # Man Nucleated RBC % Lymphocytes # (Manual) Monocytes # (Manual) PT INR Heparin Anti-Xa Level POC ABG pO2 ABG pH 7.504 H 7.486 H POC ABG pCO2 ABG Hemoglobin 7.4 L 6.2 L ABG Oxyhemoglobin ABG pO2 169.2 H 121.7 H ABG HCO3 27.1 H ABG O2 Saturation 99.1 H ABG Base Excess 3.4 H ABG Potassium ABG Glucose Oxyhemoglobin Sodium Potassium Chloride Carbon Dioxide BUN Creatinine Glucose POC Glucose 191 H Lactic Acid Calcium AST Phosphorus Total Protein Albumin C-Reactive Protein Arterial Blood Glucose Arterial Blood Ionized Calcium Urine WBC (Auto) 01/31/20 01/31/20 01/31/20 05:37 11:59 12:40 WBC RBC 2.41 L Hgb 7.5 L Hct 22.3 L MCHC RDW 22.2 H Plt Count MCH Lymph % (Auto) Lymph # Lymph # (Auto) Seg Neutrophils % Seg Neuts % (Manual) 94.0 H Lymphocytes % (Manual) 2.0 L Seg Neutrophils # Seg Neutrophils # Man 9.4 H Nucleated RBC % Lymphocytes # (Manual) 0.2 L Monocytes # (Manual) PT INR Heparin Anti-Xa Level POC ABG pO2 ABG pH POC ABG pCO2 ABG Hemoglobin ABG Oxyhemoglobin ABG pO2 ABG HCO3 ABG O2 Saturation ABG Base Excess ABG Potassium ABG Glucose Oxyhemoglobin Sodium Potassium Chloride Carbon Dioxide BUN Creatinine Glucose POC Glucose 175 H 220 H Lactic Acid Calcium AST Phosphorus Total Protein Albumin C-Reactive Protein Arterial Blood Glucose Arterial Blood Ionized Calcium Urine WBC (Auto) 01/31/20 01/31/20 01/31/20 12:40 14:40 18:18 WBC RBC Hgb Hct MCHC RDW Plt Count MCH Lymph % (Auto) Lymph # Lymph # (Auto) Seg Neutrophils % Seg Neuts % (Manual) Lymphocytes % (Manual) Seg Neutrophils # Seg Neutrophils # Man Nucleated RBC % Lymphocytes # (Manual) Monocytes # (Manual) PT INR Heparin Anti-Xa Level POC ABG pO2 124.7 H ABG pH 7.542 H POC ABG pCO2 ABG Hemoglobin 7.8 L ABG Oxyhemoglobin ABG pO2 ABG HCO3 ABG O2 Saturation ABG Base Excess ABG Potassium ABG Glucose Oxyhemoglobin Sodium 151 H Potassium 2.1 L* D Chloride 108.9 H Carbon Dioxide BUN 22 H Creatinine Glucose 194 H POC Glucose 181 H Lactic Acid Calcium 8.1 L AST Phosphorus Total Protein 4.8 L Albumin 2.3 L C-Reactive Protein Arterial Blood Glucose Arterial Blood Ionized Calcium Urine WBC (Auto) 02/01/20 02/01/20 02/01/20 00:11 03:14 04:32 WBC 11.9 H RBC 2.47 L Hgb 7.6 L Hct 22.8 L MCHC RDW 22.7 H Plt Count MCH Lymph % (Auto) Lymph # Lymph # (Auto) Seg Neutrophils % Seg Neuts % (Manual) 90.0 H Lymphocytes % (Manual) 5.0 L Seg Neutrophils # Seg Neutrophils # Man 10.7 H Nucleated RBC % Lymphocytes # (Manual) 0.6 L Monocytes # (Manual) PT INR Heparin Anti-Xa Level POC ABG pO2 ABG pH 7.564 H POC ABG pCO2 ABG Hemoglobin 7.6 L ABG Oxyhemoglobin ABG pO2 124.1 H ABG HCO3 29.6 H ABG O2 Saturation ABG Base Excess 7.0 H ABG Potassium ABG Glucose Oxyhemoglobin Sodium Potassium Chloride Carbon Dioxide BUN Creatinine Glucose POC Glucose 190 H Lactic Acid Calcium AST Phosphorus Total Protein Albumin C-Reactive Protein Arterial Blood Glucose Arterial Blood Ionized Calcium Urine WBC (Auto) 02/01/20 02/01/20 02/01/20 04:32 05:28 11:56 WBC RBC Hgb Hct MCHC RDW Plt Count MCH Lymph % (Auto) Lymph # Lymph # (Auto) Seg Neutrophils % Seg Neuts % (Manual) Lymphocytes % (Manual) Seg Neutrophils # Seg Neutrophils # Man Nucleated RBC % Lymphocytes # (Manual) Monocytes # (Manual) PT INR Heparin Anti-Xa Level POC ABG pO2 ABG pH POC ABG pCO2 ABG Hemoglobin ABG Oxyhemoglobin ABG pO2 ABG HCO3 ABG O2 Saturation ABG Base Excess ABG Potassium ABG Glucose Oxyhemoglobin Sodium 149 H Potassium 2.6 L* D Chloride Carbon Dioxide 33 H BUN 23 H Creatinine 0.5 L Glucose 174 H POC Glucose 187 H 195 H Lactic Acid Calcium 8.0 L AST Phosphorus 1.60 L Total Protein Albumin C-Reactive Protein Arterial Blood Glucose Arterial Blood Ionized Calcium Urine WBC (Auto) 02/01/20 02/01/20 02/02/20 18:15 23:35 04:33 WBC RBC Hgb Hct MCHC RDW Plt Count MCH Lymph % (Auto) Lymph # Lymph # (Auto) Seg Neutrophils % Seg Neuts % (Manual) Lymphocytes % (Manual) Seg Neutrophils # Seg Neutrophils # Man Nucleated RBC % Lymphocytes # (Manual) Monocytes # (Manual) PT INR Heparin Anti-Xa Level POC ABG pO2 ABG pH 7.549 H POC ABG pCO2 ABG Hemoglobin 9.8 L ABG Oxyhemoglobin ABG pO2 ABG HCO3 ABG O2 Saturation ABG Base Excess ABG Potassium ABG Glucose Oxyhemoglobin Sodium Potassium Chloride Carbon Dioxide BUN Creatinine Glucose POC Glucose 226 H 252 H Lactic Acid Calcium AST Phosphorus Total Protein Albumin C-Reactive Protein Arterial Blood Glucose Arterial Blood Ionized Calcium Urine WBC (Auto) 02/02/20 02/02/20 02/02/20 05:25 05:25 05:40 WBC 15.5 H RBC 2.43 L Hgb 7.6 L Hct 22.9 L MCHC RDW 23.6 H Plt Count MCH Lymph % (Auto) Lymph # Lymph # (Auto) Seg Neutrophils % Seg Neuts % (Manual) 89.0 H Lymphocytes % (Manual) 3.0 L Seg Neutrophils # Seg Neutrophils # Man 13.8 H Nucleated RBC % Lymphocytes # (Manual) 0.5 L Monocytes # (Manual) 0.9 H PT INR Heparin Anti-Xa Level POC ABG pO2 ABG pH POC ABG pCO2 ABG Hemoglobin ABG Oxyhemoglobin ABG pO2 ABG HCO3 ABG O2 Saturation ABG Base Excess ABG Potassium ABG Glucose Oxyhemoglobin Sodium Potassium 2.6 L* Chloride Carbon Dioxide 33 H BUN 26 H Creatinine Glucose 175 H POC Glucose 181 H Lactic Acid Calcium 7.9 L AST Phosphorus Total Protein Albumin C-Reactive Protein Arterial Blood Glucose Arterial Blood Ionized Calcium Urine WBC (Auto) 02/02/20 02/02/20 02/02/20 11:55 14:45 17:18 WBC RBC Hgb Hct MCHC RDW Plt Count MCH Lymph % (Auto) Lymph # Lymph # (Auto) Seg Neutrophils % Seg Neuts % (Manual) Lymphocytes % (Manual) Seg Neutrophils # Seg Neutrophils # Man Nucleated RBC % Lymphocytes # (Manual) Monocytes # (Manual) PT INR Heparin Anti-Xa Level POC ABG pO2 ABG pH 7.56 H POC ABG pCO2 ABG Hemoglobin 7.6 L ABG Oxyhemoglobin ABG pO2 ABG HCO3 ABG O2 Saturation ABG Base Excess ABG Potassium ABG Glucose Oxyhemoglobin Sodium Potassium Chloride Carbon Dioxide BUN Creatinine Glucose POC Glucose 226 H 227 H Lactic Acid Calcium AST Phosphorus Total Protein Albumin C-Reactive Protein Arterial Blood Glucose Arterial Blood Ionized Calcium Urine WBC (Auto) 02/02/20 02/03/20 02/03/20 20:54 00:02 05:14 WBC 18.7 H RBC 2.45 L Hgb 7.6 L Hct 23.2 L MCHC RDW 23.5 H Plt Count MCH Lymph % (Auto) Lymph # Lymph # (Auto) Seg Neutrophils % Seg Neuts % (Manual) 94.0 H Lymphocytes % (Manual) 3.0 L Seg Neutrophils # Seg Neutrophils # Man 17.6 H Nucleated RBC % Lymphocytes # (Manual) 0.6 L Monocytes # (Manual) PT INR Heparin Anti-Xa Level POC ABG pO2 ABG pH POC ABG pCO2 ABG Hemoglobin ABG Oxyhemoglobin ABG pO2 ABG HCO3 ABG O2 Saturation ABG Base Excess ABG Potassium ABG Glucose Oxyhemoglobin Sodium Potassium 3.2 L D Chloride Carbon Dioxide BUN Creatinine Glucose POC Glucose 204 H Lactic Acid Calcium AST Phosphorus Total Protein Albumin C-Reactive Protein Arterial Blood Glucose Arterial Blood Ionized Calcium Urine WBC (Auto) 02/03/20 02/03/20 02/03/20 05:14 05:14 05:20 WBC RBC Hgb Hct MCHC RDW Plt Count MCH Lymph % (Auto) Lymph # Lymph # (Auto) Seg Neutrophils % Seg Neuts % (Manual) Lymphocytes % (Manual) Seg Neutrophils # Seg Neutrophils # Man Nucleated RBC % Lymphocytes # (Manual) Monocytes # (Manual) PT INR Heparin Anti-Xa Level POC ABG pO2 ABG pH POC ABG pCO2 ABG Hemoglobin ABG Oxyhemoglobin ABG pO2 ABG HCO3 ABG O2 Saturation ABG Base Excess ABG Potassium ABG Glucose Oxyhemoglobin Sodium Potassium 3.1 L Chloride Carbon Dioxide 33 H BUN 29 H Creatinine 0.5 L Glucose 160 H POC Glucose 146 H Lactic Acid Calcium 7.9 L AST Phosphorus 2.30 L Total Protein 4.8 L Albumin 2.4 L C-Reactive Protein Arterial Blood Glucose Arterial Blood Ionized Calcium Urine WBC (Auto) 02/03/20 02/03/20 02/03/20 12:35 18:14 23:26 WBC RBC Hgb Hct MCHC RDW Plt Count MCH Lymph % (Auto) Lymph # Lymph # (Auto) Seg Neutrophils % Seg Neuts % (Manual) Lymphocytes % (Manual) Seg Neutrophils # Seg Neutrophils # Man Nucleated RBC % Lymphocytes # (Manual) Monocytes # (Manual) PT INR Heparin Anti-Xa Level POC ABG pO2 ABG pH POC ABG pCO2 ABG Hemoglobin ABG Oxyhemoglobin ABG pO2 ABG HCO3 ABG O2 Saturation ABG Base Excess ABG Potassium ABG Glucose Oxyhemoglobin Sodium Potassium Chloride Carbon Dioxide BUN Creatinine Glucose POC Glucose 219 H 248 H 173 H Lactic Acid Calcium AST Phosphorus Total Protein Albumin C-Reactive Protein Arterial Blood Glucose Arterial Blood Ionized Calcium Urine WBC (Auto) 02/04/20 02/04/20 02/04/20 05:34 05:36 06:51 WBC RBC Hgb Hct MCHC RDW Plt Count MCH Lymph % (Auto) Lymph # Lymph # (Auto) Seg Neutrophils % Seg Neuts % (Manual) Lymphocytes % (Manual) Seg Neutrophils # Seg Neutrophils # Man Nucleated RBC % Lymphocytes # (Manual) Monocytes # (Manual) PT INR Heparin Anti-Xa Level POC ABG pO2 ABG pH POC ABG pCO2 ABG Hemoglobin ABG Oxyhemoglobin ABG pO2 ABG HCO3 ABG O2 Saturation ABG Base Excess ABG Potassium ABG Glucose Oxyhemoglobin Sodium Potassium Chloride Carbon Dioxide BUN Creatinine Glucose POC Glucose 56 L 64 L 127 H Lactic Acid Calcium AST Phosphorus Total Protein Albumin C-Reactive Protein Arterial Blood Glucose Arterial Blood Ionized Calcium Urine WBC (Auto) 02/04/20 02/04/20 02/04/20 11:57 13:42 13:53 WBC 19.2 H RBC 2.48 L Hgb 7.8 L Hct 23.5 L MCHC RDW 24.2 H Plt Count MCH Lymph % (Auto) Lymph # Lymph # (Auto) Seg Neutrophils % Seg Neuts % (Manual) 97.0 H Lymphocytes % (Manual) 2.0 L Seg Neutrophils # Seg Neutrophils # Man 18.6 H Nucleated RBC % Lymphocytes # (Manual) 0.4 L Monocytes # (Manual) PT INR Heparin Anti-Xa Level POC ABG pO2 118.2 H ABG pH 7.525 H POC ABG pCO2 ABG Hemoglobin 8.7 L ABG Oxyhemoglobin ABG pO2 ABG HCO3 ABG O2 Saturation ABG Base Excess ABG Potassium 2.8 L ABG Glucose 185 H Oxyhemoglobin Sodium Potassium Chloride Carbon Dioxide BUN Creatinine Glucose POC Glucose 224 H Lactic Acid Calcium AST Phosphorus Total Protein Albumin C-Reactive Protein Arterial Blood Glucose 185 H Arterial Blood Ionized Calcium 4.5 L Urine WBC (Auto) 02/04/20 02/04/20 02/04/20 13:53 18:15 23:35 WBC RBC Hgb Hct MCHC RDW Plt Count MCH Lymph % (Auto) Lymph # Lymph # (Auto) Seg Neutrophils % Seg Neuts % (Manual) Lymphocytes % (Manual) Seg Neutrophils # Seg Neutrophils # Man Nucleated RBC % Lymphocytes # (Manual) Monocytes # (Manual) PT INR Heparin Anti-Xa Level POC ABG pO2 ABG pH POC ABG pCO2 ABG Hemoglobin ABG Oxyhemoglobin ABG pO2 ABG HCO3 ABG O2 Saturation ABG Base Excess ABG Potassium ABG Glucose Oxyhemoglobin Sodium 147 H Potassium 2.8 L* Chloride Carbon Dioxide 38 H BUN 33 H Creatinine 0.5 L Glucose 202 H POC Glucose 215 H 197 H Lactic Acid Calcium AST Phosphorus Total Protein Albumin C-Reactive Protein Arterial Blood Glucose Arterial Blood Ionized Calcium Urine WBC (Auto) 02/05/20 02/05/20 02/05/20 01:03 04:00 04:00 WBC 26.7 H RBC 2.59 L Hgb 8.1 L Hct 24.6 L MCHC RDW 24.1 H Plt Count MCH Lymph % (Auto) 1.6 L Lymph # Lymph # (Auto) 0.4 L Seg Neutrophils % Seg Neuts % (Manual) Lymphocytes % (Manual) Seg Neutrophils # 25.9 H Seg Neutrophils # Man Nucleated RBC % Lymphocytes # (Manual) Monocytes # (Manual) PT INR Heparin Anti-Xa Level POC ABG pO2 ABG pH POC ABG pCO2 ABG Hemoglobin 7.1 L ABG Oxyhemoglobin ABG pO2 50.7 L ABG HCO3 29.6 H ABG O2 Saturation 82.7 L ABG Base Excess 4.8 H ABG Potassium ABG Glucose Oxyhemoglobin 81.0 L Sodium 146 H Potassium Chloride Carbon Dioxide 32 H BUN 35 H Creatinine 0.5 L Glucose 226 H POC Glucose Lactic Acid Calcium AST Phosphorus Total Protein 5.1 L Albumin 2.2 L C-Reactive Protein Arterial Blood Glucose Arterial Blood Ionized Calcium Urine WBC (Auto) 02/05/20 02/05/20 02/06/20 05:32 17:56 00:19 WBC RBC Hgb Hct MCHC RDW Plt Count MCH Lymph % (Auto) Lymph # Lymph # (Auto) Seg Neutrophils % Seg Neuts % (Manual) Lymphocytes % (Manual) Seg Neutrophils # Seg Neutrophils # Man Nucleated RBC % Lymphocytes # (Manual) Monocytes # (Manual) PT INR Heparin Anti-Xa Level POC ABG pO2 ABG pH POC ABG pCO2 ABG Hemoglobin ABG Oxyhemoglobin ABG pO2 ABG HCO3 ABG O2 Saturation ABG Base Excess ABG Potassium ABG Glucose Oxyhemoglobin Sodium Potassium Chloride Carbon Dioxide BUN Creatinine Glucose POC Glucose 239 H 175 H 309 H Lactic Acid Calcium AST Phosphorus Total Protein Albumin C-Reactive Protein Arterial Blood Glucose Arterial Blood Ionized Calcium Urine WBC (Auto) 02/06/20 02/06/20 02/06/20 04:27 05:11 05:40 WBC RBC Hgb Hct MCHC RDW Plt Count MCH Lymph % (Auto) Lymph # Lymph # (Auto) Seg Neutrophils % Seg Neuts % (Manual) Lymphocytes % (Manual) Seg Neutrophils # Seg Neutrophils # Man Nucleated RBC % Lymphocytes # (Manual) Monocytes # (Manual) PT INR Heparin Anti-Xa Level POC ABG pO2 157.2 H ABG pH 7.551 H POC ABG pCO2 ABG Hemoglobin 7.3 L ABG Oxyhemoglobin 98.3 H ABG pO2 ABG HCO3 ABG O2 Saturation ABG Base Excess ABG Potassium ABG Glucose Oxyhemoglobin Sodium 148 H Potassium 3.0 L Chloride 107.3 H Carbon Dioxide 33 H BUN 33 H Creatinine 0.5 L Glucose 283 H POC Glucose 347 H Lactic Acid Calcium 7.9 L AST Phosphorus Total Protein 3.6 L D Albumin 1.2 L C-Reactive Protein Arterial Blood Glucose Arterial Blood Ionized Calcium Urine WBC (Auto) 02/06/20 02/06/20 02/06/20 08:45 11:52 18:26 WBC 16.3 H RBC 2.12 L Hgb 6.6 L Hct 20.3 L MCHC RDW 24.4 H Plt Count MCH Lymph % (Auto) Lymph # Lymph # (Auto) Seg Neutrophils % Seg Neuts % (Manual) 98.0 H Lymphocytes % (Manual) 1.0 L Seg Neutrophils # Seg Neutrophils # Man 16.0 H Nucleated RBC % Lymphocytes # (Manual) 0.2 L Monocytes # (Manual) PT INR Heparin Anti-Xa Level POC ABG pO2 ABG pH POC ABG pCO2 ABG Hemoglobin ABG Oxyhemoglobin ABG pO2 ABG HCO3 ABG O2 Saturation ABG Base Excess ABG Potassium ABG Glucose Oxyhemoglobin Sodium Potassium Chloride Carbon Dioxide BUN Creatinine Glucose POC Glucose 132 H 114 H Lactic Acid Calcium AST Phosphorus Total Protein Albumin C-Reactive Protein Arterial Blood Glucose Arterial Blood Ionized Calcium Urine WBC (Auto) 02/07/20 02/07/20 02/07/20 00:08 05:41 11:49 WBC RBC Hgb Hct MCHC RDW Plt Count MCH Lymph % (Auto) Lymph # Lymph # (Auto) Seg Neutrophils % Seg Neuts % (Manual) Lymphocytes % (Manual) Seg Neutrophils # Seg Neutrophils # Man Nucleated RBC % Lymphocytes # (Manual) Monocytes # (Manual) PT INR Heparin Anti-Xa Level POC ABG pO2 ABG pH POC ABG pCO2 ABG Hemoglobin ABG Oxyhemoglobin ABG pO2 ABG HCO3 ABG O2 Saturation ABG Base Excess ABG Potassium ABG Glucose Oxyhemoglobin Sodium Potassium Chloride Carbon Dioxide BUN Creatinine Glucose POC Glucose 111 H 164 H 146 H Lactic Acid Calcium AST Phosphorus Total Protein Albumin C-Reactive Protein Arterial Blood Glucose Arterial Blood Ionized Calcium Urine WBC (Auto) 02/07/20 02/07/20 02/08/20 17:56 23:27 03:55 WBC RBC Hgb Hct MCHC RDW Plt Count MCH Lymph % (Auto) Lymph # Lymph # (Auto) Seg Neutrophils % Seg Neuts % (Manual) Lymphocytes % (Manual) Seg Neutrophils # Seg Neutrophils # Man Nucleated RBC % Lymphocytes # (Manual) Monocytes # (Manual) PT INR Heparin Anti-Xa Level POC ABG pO2 112.8 H ABG pH 7.511 H POC ABG pCO2 51.2 H ABG Hemoglobin 7.8 L ABG Oxyhemoglobin ABG pO2 ABG HCO3 ABG O2 Saturation ABG Base Excess ABG Potassium ABG Glucose Oxyhemoglobin Sodium Potassium Chloride Carbon Dioxide BUN Creatinine Glucose POC Glucose 140 H 164 H Lactic Acid Calcium AST Phosphorus Total Protein Albumin C-Reactive Protein Arterial Blood Glucose Arterial Blood Ionized Calcium Urine WBC (Auto) 02/08/20 02/08/20 02/08/20 04:46 04:46 05:31 WBC RBC 2.30 L Hgb 7.3 L Hct 22.0 L MCHC RDW 23.9 H Plt Count MCH Lymph % (Auto) 8.5 L Lymph # Lymph # (Auto) 0.8 L Seg Neutrophils % 87.6 H Seg Neuts % (Manual) Lymphocytes % (Manual) Seg Neutrophils # 8.7 H Seg Neutrophils # Man Nucleated RBC % Lymphocytes # (Manual) Monocytes # (Manual) PT INR Heparin Anti-Xa Level POC ABG pO2 ABG pH POC ABG pCO2 ABG Hemoglobin ABG Oxyhemoglobin ABG pO2 ABG HCO3 ABG O2 Saturation ABG Base Excess ABG Potassium ABG Glucose Oxyhemoglobin Sodium Potassium 3.1 L Chloride Carbon Dioxide 31 H BUN 29 H Creatinine 0.3 L Glucose 108 H POC Glucose 117 H Lactic Acid Calcium AST Phosphorus Total Protein Albumin C-Reactive Protein Arterial Blood Glucose Arterial Blood Ionized Calcium Urine WBC (Auto) 02/08/20 02/08/20 02/08/20 10:15 12:10 12:23 WBC RBC Hgb Hct MCHC RDW Plt Count MCH Lymph % (Auto) Lymph # Lymph # (Auto) Seg Neutrophils % Seg Neuts % (Manual) Lymphocytes % (Manual) Seg Neutrophils # Seg Neutrophils # Man Nucleated RBC % Lymphocytes # (Manual) Monocytes # (Manual) PT INR Heparin Anti-Xa Level POC ABG pO2 ABG pH POC ABG pCO2 ABG Hemoglobin ABG Oxyhemoglobin ABG pO2 ABG HCO3 ABG O2 Saturation ABG Base Excess ABG Potassium ABG Glucose Oxyhemoglobin Sodium Potassium Chloride Carbon Dioxide BUN Creatinine Glucose POC Glucose 164 H 170 H 164 H Lactic Acid Calcium AST Phosphorus Total Protein Albumin C-Reactive Protein Arterial Blood Glucose Arterial Blood Ionized Calcium Urine WBC (Auto) 02/08/20 02/09/20 02/09/20 23:50 03:04 05:57 WBC RBC Hgb Hct MCHC RDW Plt Count MCH Lymph % (Auto) Lymph # Lymph # (Auto) Seg Neutrophils % Seg Neuts % (Manual) Lymphocytes % (Manual) Seg Neutrophils # Seg Neutrophils # Man Nucleated RBC % Lymphocytes # (Manual) Monocytes # (Manual) PT INR Heparin Anti-Xa Level POC ABG pO2 ABG pH 7.501 H POC ABG pCO2 ABG Hemoglobin 7.5 L ABG Oxyhemoglobin ABG pO2 ABG HCO3 ABG O2 Saturation ABG Base Excess ABG Potassium ABG Glucose 143 H Oxyhemoglobin Sodium Potassium Chloride Carbon Dioxide BUN Creatinine Glucose POC Glucose 126 H 160 H Lactic Acid Calcium AST Phosphorus Total Protein Albumin C-Reactive Protein Arterial Blood Glucose 143 H Arterial Blood Ionized Calcium Urine WBC (Auto) 02/09/20 02/09/20 08:00 Unknown WBC RBC 2.15 L Hgb 7.0 L Hct 20.8 L MCHC RDW 23.3 H Plt Count MCH 33 H Lymph % (Auto) Lymph # Lymph # (Auto) Seg Neutrophils % Seg Neuts % (Manual) Lymphocytes % (Manual) Seg Neutrophils # Seg Neutrophils # Man Nucleated RBC % Lymphocytes # (Manual) Monocytes # (Manual) PT INR Heparin Anti-Xa Level POC ABG pO2 ABG pH POC ABG pCO2 ABG Hemoglobin ABG Oxyhemoglobin ABG pO2 ABG HCO3 ABG O2 Saturation ABG Base Excess ABG Potassium ABG Glucose Oxyhemoglobin Sodium Potassium 3.3 L Chloride Carbon Dioxide 34 H BUN 27 H Creatinine 0.4 L Glucose 127 H POC Glucose Lactic Acid Calcium 8.2 L AST Phosphorus Total Protein Albumin C-Reactive Protein Arterial Blood Glucose Arterial Blood Ionized Calcium Urine WBC (Auto) Allied health notes reviewed: RT
[2020-02-09] MEDS: MULTIVITAMINS 5 ML ORAL LIQUID PO SCH (13:20)
[2020-02-09] MEDS: FERROUS SULFATE 308 MG (62mg Elemental Iron) / 7 ML ELIXIR FEEDTUBE SCH (13:52)
--- NOTE | 2020-02-09 14:54 | Consultation ---
History of Present Illness Consult date: 02/09/20 Chief complaint: vent - History of present illness History of present illness: 69-year-old -[place] female with known history of dementia, diabetes mellitus and pulmonary embolism was [facility]/07 for decreased responsiveness, lethargy and hypotension. Patient is currently intubated and nonverbal at baseline and therefore all of the history is obtained from the chart. The patient has had a long protracted hospital course. Patient treated for sepsis, infected sacral decubitus ulcer with underlying osteomyelitis. The patient is bedbound and has multiple pressure ulcers. The patient is undergone PEG tube placement by GI as well as sacral wound debridement by general surgery. She also had a left chest tube placed for a hydropneumothorax. Patient suffered a CODE BLUE on 01/28/2020 after which she was intubated. She was weaned from the vent and extubated however had a respiratory arrest on 02/04 and has been intubated since. She cannot safely be weaned from the ventilator and therefore tracheostomy recommended by ICU team. Surgery is consulted for evaluation. Past History Past Medical History: diabetes, hyperlipidemia, pulmonary embolism, other (Dementia,Asthma) Past Surgical History: Other (PEG tube, sacral wound debridement, left chest tube placement) Social history: no significant social history Family history: no significant family history Medications and Allergies Allergies Allergy/AdvReac Type Severity Reaction Status Date / Time No Known Allergies Allergy Unverified 06/23/14 09:54 Home Medications Medication Instructions Recorded Confirmed Last Taken Type AtorvaSTATin 10 mg PO QHS 05/06/19 01/23/20 05/05/19 History Donepezil HCl [Donepezil HCl Odt] 10 mg PO QHS 05/06/19 01/23/20 Unknown History LORazepam [Lorazepam] 0.5 mg PO BID 05/06/19 01/23/20 Unknown History Melatonin [Melatonin 10MG CAP] 10 mg PO QHS 05/06/19 01/23/20 05/05/19 History Metformin HCl [Metformin HCl ER] 500 mg PO Q2D 05/06/19 01/23/20 05/05/19 History Apixaban [Eliquis] 5 mg PO BID 30 Days #60 tablet 05/08/19 01/23/20 Unknown Rx Metoprolol [Lopressor TAB] 12.5 mg PO BID #60 tablet 01/23/20 Unknown Rx Active Meds: Active Medications Acetaminophen (Tylenol) 650 mg PO Q4H PRN PRN Reason: Pain MILD(1-3)/Fever >100.5/GARCIA Last Admin: 01/18/20 06:03 Dose: 650 mg Documented by: Lipase/Protease/Amylase (Donovan Sommers 10,500 Unit) 1 each FEEDTUBE PRN PRN PRN Reason: For Clogged Feeding Tube Atorvastatin Calcium (Atorvastatin) 10 mg PO QHS [facility] Last Admin: 02/08/20 21:36 Dose: 10 mg Documented by: Dextrose (D50w (25gm) Syringe) 0 ml IV Q30MIN PRN; Protocol PRN Reason: Hypoglycemia Last Admin: 02/08/20 18:26 Dose: 10 ml Documented by: Donepezil HCl (Aricept) 10 mg PO QHS [facility] Last Admin: 02/08/20 21:36 Dose: 10 mg Documented by: Famotidine (Pepcid) 20 mg PO BID [facility] Last Admin: 02/09/20 10:02 Dose: 20 mg Documented by: Ferrous Sulfate (Ferrous Sulfate) 308 mg FEEDTUBE DAILY [facility] Last Admin: 02/09/20 13:52 Dose: 308 mg Documented by: Fluticasone Propionate (Flonase) 100 mcg NS QDAY PRN PRN Reason: Nasal Congestion Last Admin: 01/26/20 06:09 Dose: 100 mcg Documented by: Heparin Sodium (Porcine) (Heparin) 5,000 unit SUB-Q Q12HR [facility] Last Admin: 02/09/20 10:02 Dose: 5,000 unit Documented by: Hydrophilic Ointment (Vaseline Lip Therapy) 1 applic TP Q2HR PRN PRN Reason: Dry Lips Piperacillin Sod/Tazobactam Sod (Zosyn/Ns 4.5gm/100ml) 4.5 gm in 100 mls @ 200 mls/hr IV Q8HR [facility]; Protocol Stop: 02/27/20 22:29 Last Admin: 02/09/20 13:20 Dose: 200 mls/hr Documented by: Norepinephrine (Levophed Drip 4 Mg/Ns 250 Ml) 4 mg in 250 mls @ 7.5 mls/hr IV TITR [facility]; Protocol Last Titration: 02/06/20 15:32 Dose: Infused Documented by: Insulin Glargine (Lantus) 5 units SUB-Q DAILY [facility] Last Admin: 02/09/20 10:02 Dose: 5 units Documented by: Insulin Human Regular (Humulin R) 0 unit SUB-Q Q6HR [facility]; Protocol Last Admin: 02/09/20 13:20 Dose: 3 unit Documented by: Magnesium Hydroxide (Milk Of Magnesia) 30 ml PO Q4H PRN PRN Reason: Constipation Megestrol Acetate (Megestrol) 400 mg PO QDAY [facility] Last Admin: 02/09/20 10:02 Dose: 400 mg Documented by: Mirtazapine (Remeron) 15 mg PO QHS [facility] Last Admin: 02/08/20 21:35 Dose: 15 mg Documented by: Multi-Ingred Cream/Lotion/Oil/Oint (Artificial Tears Ophth Oint) 1 applic OU Q4HR PRN PRN Reason: Dry Eye(s) Multivitamins (Centrum Liq) 5 ml PO QDAY [facility] Last Admin: 02/09/20 13:20 Dose: 5 ml Documented by: Neomycin/Polymyxin/Bacitracin (Triple Antibiotic) 1 applic TP QDAY [facility] Last Admin: 02/09/20 09:31 Dose: 1 applic Documented by: Ondansetron HCl (Zofran) 4 mg IV Q8H PRN PRN Reason: Nausea And Vomiting Scopolamine (Transderm-Scop) 1 each TD Q3D [facility] Last Admin: 02/08/20 10:05 Dose: 1 each Documented by: Simple Syrup (Simple Syrup) 15 ml FEEDTUBE PRN PRN PRN Reason: Hypoglycemia Simple Syrup (Simple Syrup) 30 ml FEEDTUBE PRN PRN PRN Reason: Hypoglycemia Sodium Bicarbonate (Sodium Bicarbonate) 325 mg FEEDTUBE PRN PRN PRN Reason: For Clogged Feeding Tube Sodium Chloride (Sodium Chloride Flush Syringe 10 Ml) 10 ml IV BID [facility] Last Admin: 02/09/20 09:32 Dose: 10 ml Documented by: Sodium Chloride (Sodium Chloride Flush Syringe 10 Ml) 10 ml IV PRN PRN PRN Reason: LINE FLUSH Trazodone HCl (Desyrel) 25 mg PO QHS [facility] Last Admin: 02/08/20 21:36 Dose: 25 mg Documented by: Review of Systems ROS unobtainable: due to endotracheal tube, due to mental status Exam Vital Signs Pulse Resp BP Pulse Ox 125 H 11 L 123/74 99 01/08/20 15:30 01/08/20 15:30 01/08/20 15:30 01/08/20 15:30 Narrative exam: Gen.: Eyes open spontaneously but patient does not track. Does not follow commands. ENT: ET tube in place. Trachea midline. No lymphadenopathy. No scleral icterus or conjunctival pallor CV: S1, S2 present Respiratory: No audible wheezes Abdomen: Soft, nondistended, nontender. PEG tube in place with tube feeds running. No rebound, rigidity, guarding Extremities: Contracted Results - Labs 02/09/20 Unknown 02/09/20 08:00 Abnormal lab results 02/08/20 02/09/20 02/09/20 Range/Units 23:50 03:04 05:57 RBC (3.65-5.03) M/mm3 Hgb (10.1-14.3) gm/dl Hct (30.3-42.9) % MCH (28-32) pg RDW (13.2-15.2) % ABG pH 7.501 H (7.320-7.450) ABG Hemoglobin 7.5 L (12.0-17.5) ABG Glucose 143 H (65-95) mg/dL Potassium (3.6-5.0) mmol/L Carbon Dioxide (22-30) mmol/L BUN (7-17) mg/dL Creatinine (0.6-1.2) mg/dL Glucose (65-100) mg/dL POC Glucose 126 H 160 H (70-105) Calcium (8.4-10.2) mg/dL Arterial Blood Glucose 143 H (65-95) mg/dL 02/09/20 02/09/20 02/09/20 Range/Units 08:00 12:39 Unknown RBC 2.15 L (3.65-5.03) M/mm3 Hgb 7.0 L (10.1-14.3) gm/dl Hct 20.8 L (30.3-42.9) % MCH 33 H (28-32) pg RDW 23.3 H (13.2-15.2) % ABG pH (7.320-7.450) ABG Hemoglobin (12.0-17.5) ABG Glucose (65-95) mg/dL Potassium 3.3 L (3.6-5.0) mmol/L Carbon Dioxide 34 H (22-30) mmol/L BUN 27 H (7-17) mg/dL Creatinine 0.4 L (0.6-1.2) mg/dL Glucose 127 H (65-100) mg/dL POC Glucose 154 H (70-105) Calcium 8.2 L (8.4-10.2) mg/dL Arterial Blood Glucose (65-95) mg/dL Diabetes panel 02/09/20 Range/Units 08:00 Sodium 145 (137-145) mmol/L Potassium 3.3 L (3.6-5.0) mmol/L Chloride 106.4 (98-107) mmol/L Carbon Dioxide 34 H (22-30) mmol/L BUN 27 H (7-17) mg/dL Creatinine 0.4 L (0.6-1.2) mg/dL Glucose 127 H (65-100) mg/dL Calcium 8.2 L (8.4-10.2) mg/dL Calcium panel 02/09/20 Range/Units 08:00 Calcium 8.2 L (8.4-10.2) mg/dL Pituitary panel 02/09/20 Range/Units 08:00 Sodium 145 (137-145) mmol/L Potassium 3.3 L (3.6-5.0) mmol/L Chloride 106.4 (98-107) mmol/L Carbon Dioxide 34 H (22-30) mmol/L BUN 27 H (7-17) mg/dL Creatinine 0.4 L (0.6-1.2) mg/dL Glucose 127 H (65-100) mg/dL Calcium 8.2 L (8.4-10.2) mg/dL Adrenal panel 02/09/20 Range/Units 08:00 Sodium 145 (137-145) mmol/L Potassium 3.3 L (3.6-5.0) mmol/L Chloride 106.4 (98-107) mmol/L Carbon Dioxide 34 H (22-30) mmol/L BUN 27 H (7-17) mg/dL Creatinine 0.4 L (0.6-1.2) mg/dL Glucose 127 H (65-100) mg/dL Calcium 8.2 L (8.4-10.2) mg/dL - Imaging Chest x-ray: report reviewed, image reviewed CT scan - chest: report reviewed, image reviewed Assessment and Plan 69-year-old female with 1. Vent dependent respiratory failure 2. Status post CODE BLUE x2 3. 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 Severe protein calorie malnutrition Plan: 1. Patient is a candidate for tracheostomy. I discussed the indication, risk, benefits, alternatives to tracheostomy with the patient's Joel Garcia [phone]. I explained to him that the patient's overall prognosis due to her acute and chronic medical issues is poor. Hospice has been recommended by several physicians. I explained to him that a tracheostomy will likely not improve her overall prognosis. Despite this, he states he has discussed the pr ocedure with his family and they choose to proceed. After all risks were discussed, questions were answered. Consent obtained for percutaneous tracheostomy, possible open, fiberoptic bronchoscopy. 2. Preoperative COVID testing will be obtained. If negative, will schedule procedure in the operating room. 3. Continue medical management as per consultants and hospitalist 4. Continue tube feeds via PEG. Thank you for this consultation. Please call with any questions or concerns. Evaluation and treatment of this patient was during the time of the national and state emergency arising from COVID19 coronavirus pandemic. Treatment and procedures performed meet the current and available best practice and guidelines for patient during the COVID pandemic.
[2020-02-09] MEDS: traZODone 50 MG TAB PO SCH (21:48)
[2020-02-09] MEDS: DONEPEZIL 10 MG TAB PO SCH (21:49)
[2020-02-09] MEDS: MIRTAZAPINE 15 MG TAB PO SCH (21:49)
[2020-02-10] MEDS: INSULIN REGULAR, HUMAN 100 UNIT/ML 3ML VIAL SUB-Q SCH ×4 (00:10→17:19)
[2020-02-10 04:52] LABS: ABG Base Excess 5.7 mmol/L (-2.0-3.0); ABG HCO3 29.3 mmol/L (20.0-26.0); ABG Methemoglobin 0.5 % (0.0-1.5); ABG Oxygen Saturation 98.8 % (95.0-99.0); ABG PCO2 38.3 mm Hg; ABG PH 7.502 pH Units (7.350-7.450)
[2020-02-10] MEDS: PIPERACIL/TAZOBACTA 4.5/NS 100 4.5 GM/100 ML VIAL IV SCH ×3 (06:00→21:29)
--- NOTE | 2020-02-10 09:12 | Progress Note ---
Assessment and Plan Assessment and plan: --Acute hypoxic respiratory failure, status post cardiac arrest status post extubation 02/02/2020 but had to be reintubated on 02/04 Continue mechanical ventilation, unable to wean/vent dependent Surgery evaluated, agreed for the tracheostomy, pending COVID test --Shock/ septic shock Monitor off Levophed, supportive care Etiology secondary to infected sacral decubitus ulcer and UTI --Proteus bacteremia: Due to sacral decubitus Long-term Zosyn per ID stop date 02/27/2020[total 6 weeks] --Hypokalemia; Monitor levels and replete as needed -- Hypernatremia; Monitor levels, adjust management as needed -- Uncontrolled diabetes mellitus; Blood sugars are much better 24-hour blood sugars below 200 Accu-Chek sliding scale coverage long-acting insulin as needed DM management with SSI, TF --s/p PEA arrest night on 01/28/2020 and 02/05/2020 s/p CPR per ACLS protocol --Anoxic/hypoxic encephalopathy. Neurology consultation on Sunday with possible EEG/MRI -- Hydropneumothorax, not POA Patient developed hydropneumothorax on 01/15. Surgery evaluated s/p chest tube placed on 01/15. Improved, s/p chest tube removed 01/22, extubated 02/02/2020 Patient is using nasal cannula oxygen/BiPAP and Ventimask as needed -- large Left pleural effusion 01/25 Continue supportive care, pulmonary following --Unstageable sacral decubitus ulcer, infected/POA s/p wound debridement on 01/15. Wound vac in place ID recommend zosyn 4.5 g IV q8h total 6 weeks stop date 02/27/2020 -- UTI (urinary tract infection)Completed antibiotics --h/o Bilateral pulmonary embolism Had pulmonary embolism 7 months ago. CTA chest and LE doppler showed no acute PE or DVT eliquis now stopped -- Dementia: Continue donepezil --Severe protein-calorie malnutrition She is not eating well and is getting feeds through the NG tube. Discussed with - this problem has been chronic agreed for PEG PEG placed 01/13. Now on tube feeds --DVT prophylaxis; SCDs The high probability of a clinically significant, sudden or life threatening deterioration of the [Respiratory, CHART WRITER, CVs] system(s) required my full and direct attention, intervention and personal management. The aggregate critical care time was [32] minutes. This adama e is in addition to time spent performing reported procedures but includes the following: [x] Data Review and interpretation [x] Patient assessment and monitoring of vital signs [x] Documentation [x] Medication orders and management Patient is critically ill, multiple episodes of cardiac arrest Multiple episodes of respiratory arrest requiring mechanical ventilation Very poor prognosis, treasury consultant recommendations noted and appreciated 02/02; patient was extubated on 02/02/2020, currently on Ventimask 02/03; patient feels slightly better saturating well on Ventimask/BiPAP as needed Hypo-kalemia replenish per protocol Full CODE STATUS 10/1; patient had yet another PEA arrest status post CPR per ACLS protocol Intubated on vent, very poor prognosis, full CODE STATUS 10/2; patient remains intubated on vent, septic shock on Levophed, hypokalemia, poor prognosis 02/07/2020. Patient currently with PSV/CPAP FiO2 50%, PEEP of 6 and pressure support of 10. Continue PSV trials as tolerated and wean per pulmonary. Recall ID consultation. 02/08/2020. Patient with Proteus bacteremia likely from sacral decubitus. Continue Zosyn 4.5 g IV every 8 hours until stop date of 02/26. Patient still on mechanical ventilation AC mode rate 12, tidal volume 350, FiO2 30% and PEEP of 6. Poor prognosis. Consider hospice. Continue scopolamine for secretion control. Continue pressors to maintain MAP > 65; currently off. 02/09/2020. Continue Zosyn 4.5 g IV every 8 hours for Proteus bacteremia with end date of 02/27/2020. Continue wound care/wound VAC per surgery. Patient still on mechanical ventilation AC mode rate 12, tidal volume 350, FiO2 30% and PEEP of 6. Poor prognosis. Consider hospice. Continue scopolamine for secretion control. Currently off pressors. 02/09; evaluated by surgery, planning tracheostomy pending COVID test History Interval history: I have seen and examined the patient at the bedside today in ICU Patient's chart and medications reviewed Patient remains intubated on ventilatory support Surgery evaluation noted and appreciated Possible tracheostomy. Pending COVID-19 test Vital signs noted Hospitalist Physical - Constitutional Vitals: Temp Pulse Resp BP Pulse Ox 98.6 F 87 26 H 114/69 100 02/10/20 08:00 02/10/20 08:37 02/10/20 08:37 02/10/20 08:37 02/10/20 08:37 General appearance: Present: mild distress, well-nourished, other (Intubated on vent) - EENT Eyes: Present: PERRL, EOM intact - Neck Neck: Present: supple, normal ROM - Respiratory Respiratory effort: normal Respiratory: bilateral: diminished, rhonchi, negative: rales, wheezing - Cardiovascular Rhythm: regular Heart Sounds: Present: S1 & S2 - Extremities Extremities: no ischemia, No edema, abnormal (Contracted) - Abdominal General gastrointestinal: soft, non-tender, non-distended, normal bowel sounds - Integumentary Integumentary: Present: clear, warm - Psychiatric Psychiatric: other (Intubated on vent) - Neurologic Neurologic: other (Intubated on vent) Results - Labs CBC & Chem 7: 02/09/20 Unknown 02/09/20 08:00 Labs: Laboratory Last Values WBC 9.0 K/mm3 (4.5-11.0) 02/09/20 Unknown RBC 2.15 M/mm3 (3.65-5.03) L 02/09/20 Unknown Hgb 7.0 gm/dl (10.1-14.3) L 02/09/20 Unknown Hct 20.8 % (30.3-42.9) L 02/09/20 Unknown MCV 97 fl (79-97) 02/09/20 Unknown MCH 33 pg (28-32) H 02/09/20 Unknown MCHC 34 % (30-34) 02/09/20 Unknown RDW 23.3 % (13.2-15.2) H 02/09/20 Unknown Plt Count 281 K/mm3 (140-440) 02/09/20 Unknown Lymph % (Auto) 8.5 % (13.4-35.0) L 02/08/20 04:46 [place] % (Auto) 2.5 % (0.0-7.3) 02/08/20 04:46 Eos % (Auto) 1.2 % (0.0-4.3) 02/08/20 04:46 Baso % (Auto) 0.2 % (0.0-1.8) 02/08/20 04:46 Lymph # (Auto) 0.8 K/mm3 (1.2-5.4) L 02/08/20 04:46 [place] # (Auto) 0.2 K/mm3 (0.0-0.8) 02/08/20 04:46 Eos # (Auto) 0.1 K/mm3 (0.0-0.4) 02/08/20 04:46 Baso # (Auto) 0.0 K/mm3 (0.0-0.1) 02/08/20 04:46 Add Manual Diff Complete 02/06/20 08:45 Total Counted 100 02/06/20 08:45 Seg Neutrophils % 87.6 % (40.0-70.0) H 02/08/20 04:46 Seg Neuts % (Manual) 98.0 % (40.0-70.0) H 02/06/20 08:45 Band Neutrophils % 0 % 02/06/20 08:45 Lymphocytes % (Manual) 1.0 % (13.4-35.0) L 02/06/20 08:45 Reactive Lymphs % (Man) 0 % 02/06/20 08:45 Monocytes % (Manual) 1.0 % (0.0-7.3) 02/06/20 08:45 Eosinophils % (Manual) 0 % (0.0-4.3) 02/06/20 08:45 Basophils % (Manual) 0 % (0.0-1.8) 02/06/20 08:45 Metamyelocytes % 0 % 02/06/20 08:45 Myelocytes % 0 % 02/06/20 08:45 Promyelocytes % 0 % 02/06/20 08:45 Blast Cells % 0 % 02/06/20 08:45 Nucleated RBC % Not Reportable 02/06/20 08:45 Seg Neutrophils # 8.7 K/mm3 (1.8-7.7) H 02/08/20 04:46 Seg Neutrophils # Man 16.0 K/mm3 (1.8-7.7) H 02/06/20 08:45 Band Neutrophils # 0.0 K/mm3 02/06/20 08:45 Lymphocytes # (Manual) 0.2 K/mm3 (1.2-5.4) L 02/06/20 08:45 Abs React Lymphs (Man) 0.0 K/mm3 02/06/20 08:45 Monocytes # (Manual) 0.2 K/mm3 (0.0-0.8) 02/06/20 08:45 Eosinophils # (Manual) 0.0 K/mm3 (0.0-0.4) 02/06/20 08:45 Basophils # (Manual) 0.0 K/mm3 (0.0-0.1) 02/06/20 08:45 Metamyelocytes # 0.0 K/mm3 02/06/20 08:45 Myelocytes # 0.0 K/mm3 02/06/20 08:45 Promyelocytes # 0.0 K/mm3 02/06/20 08:45 Blast Cells # 0.0 K/mm3 02/06/20 08:45 WBC Morphology Not Reportable 02/06/20 08:45 Hypersegmented Neuts Not Reportable 02/06/20 08:45 Hyposegmented Neuts Not Reportable 02/06/20 08:45 Hypogranular Neuts Not Reportable 02/06/20 08:45 Smudge Cells Not Reportable 02/06/20 08:45 Toxic Granulation Not Reportable 02/06/20 08:45 Toxic Vacuolation Not Reportable 02/06/20 08:45 Dohle Bodies Not Reportable 02/06/20 08:45 Pelger-Huet Anomaly Not Reportable 02/06/20 08:45 Lata Rods Not Reportable 02/06/20 08:45 Platelet Estimate Consistent w auto 02/06/20 08:45 Clumped Platelets Not Reportable 02/06/20 08:45 Plt Clumps, EDTA Not Reportable 02/06/20 08:45 Large Platelets Few 02/06/20 08:45 Giant Platelets Not Reportable 02/06/20 08:45 Platelet Satelliting Not Reportable 02/06/20 08:45 Plt Morphology Comment Not Reportable 02/06/20 08:45 RBC Morphology Not Reportable 02/06/20 08:45 Dimorphic RBCs Not Reportable 02/06/20 08:45 Polychromasia Not Reportable 02/06/20 08:45 Hypochromasia 1+ 02/06/20 08:45 Poikilocytosis Not Reportable 02/06/20 08:45 Anisocytosis 2+ 02/06/20 08:45 Microcytosis Not Reportable 02/06/20 08:45 Macrocytosis Not Reportable 02/06/20 08:45 Spherocytes Not Reportable 02/06/20 08:45 Pappenheimer Bodies Not Reportable 02/06/20 08:45 Sickle Cells Not Reportable 02/06/20 08:45 Target Cells Few 02/06/20 08:45 Tear Drop Cells Not Reportable 02/06/20 08:45 Ovalocytes Not Reportable 02/06/20 08:45 Helmet Cells Not Reportable 02/06/20 08:45 [place] Bodies Not Reportable 02/06/20 08:45 [place] Rings Not Reportable 02/06/20 08:45 Leonidas Cells Not Reportable 02/06/20 08:45 Bite Cells Not Reportable 02/06/20 08:45 Crenated Cell Not Reportable 02/06/20 08:45 Elliptocytes Not Reportable 02/06/20 08:45 Acanthocytes (Spur) Not Reportable 02/06/20 08:45 Rouleaux Not Reportable 02/06/20 08:45 Hemoglobin C Crystals Not Reportable 02/06/20 08:45 Schistocytes Not Reportable 02/06/20 08:45 Malaria parasites Not Reportable 02/06/20 08:45 Gideon Bodies Not Reportable 02/06/20 08:45 Hem Pathologist Commnt No 02/06/20 08:45 APTT 33.9 Sec. (24.2-36.6) 01/26/20 16:30 PT 14.4 Sec. (12.2-14.9) 02/02/20 05:25 INR 1.11 (0.87-1.13) 02/02/20 05:25 Heparin Anti-Xa Level 0.74 U.I./ml (0.3-0.7) H 01/28/20 08:50 ABG pH 7.502 pH Units (7.350-7.450) H 02/10/20 04:38 POC ABG pCO2 41.0 mmHg (32.0-48.0) 02/09/20 03:04 ABG pCO2 38.3 mm Hg 02/10/20 04:38 POC ABG pO2 100.0 mmHg (83-108) 02/09/20 03:04 ABG pO2 136.0 mm Hg (80.0-90.0) H 02/10/20 04:38 POC ABG HCO3 31.9 02/09/20 03:04 ABG HCO3 29.3 mmol/L (20.0-26.0) H 02/10/20 04:38 ABG O2 Saturation 98.8 % (95.0-99.0) 02/10/20 04:38 ABG O2 Content 8.8 (0.0-44) 02/10/20 04:38 POC ABG Base Excess 8 02/09/20 03:04 ABG Base Excess 5.7 mmol/L (-2.0-3.0) H 02/10/20 04:38 ABG Hemoglobin 6.2 gm/dl (12.0-16.0) L 02/10/20 04:38 ABG Oxyhemoglobin 96.7 (94-98) 02/09/20 03:04 ABG Carboxyhemoglobin 1.7 % (0.0-5.0) 02/10/20 04:38 ABG Methemoglobin 0.5 % (0.0-1.5) 02/10/20 04:38 ABG Sodium 138.2 mmol/L (136.0-145.0) 02/09/20 03:04 ABG Potassium 3.4 mmol/L (3.40-4.50) 02/09/20 03:04 ABG Chloride 107.0 mmol/L (98-107) 02/09/20 03:04 ABG Glucose 143 mg/dL (65-95) H 02/09/20 03:04 Oxyhemoglobin 96.5 % (95.0-99.0) 02/10/20 04:38 Carboxyhemoglobin 0.9 (0.5-1.5) 02/08/20 03:55 FiO2 30 % 02/10/20 04:38 Sodium 145 mmol/L (137-145) 02/09/20 08:00 Potassium 3.3 mmol/L (3.6-5.0) L 02/09/20 08:00 Chloride 106.4 mmol/L (98-107) 02/09/20 08:00 Carbon Dioxide 34 mmol/L (22-30) H 02/09/20 08:00 Anion Gap 8 mmol/L 02/09/20 08:00 BUN 27 mg/dL (7-17) H 02/09/20 08:00 Creatinine 0.4 mg/dL (0.6-1.2) L 02/09/20 08:00 Estimated GFR > 60 ml/min 02/09/20 08:00 BUN/Creatinine Ratio 68 % 02/09/20 08:00 Glucose 127 mg/dL (65-100) H 02/09/20 08:00 POC Glucose 113 (70-105) H 02/10/20 05:24 Hemoglobin A1c 5.3 % (4-6) 01/11/20 00:45 Lactic Acid 1.30 mmol/L (0.7-2.0) 01/26/20 23:27 Calcium 8.2 mg/dL (8.4-10.2) L 02/09/20 08:00 Phosphorus 2.30 mg/dL (2.5-4.5) L 02/03/20 05:14 Magnesium 2.20 mg/dL (1.7-2.3) 02/06/20 05:11 Total Bilirubin 0.20 mg/dL (0.1-1.2) 02/06/20 05:11 AST 16 units/L (5-40) 02/06/20 05:11 ALT 18 units/L (7-56) 02/06/20 05:11 Alkaline Phosphatase 51 units/L (35-129) 02/06/20 05:11 C-Reactive Protein 14.80 mg/dL (0.00-1.30) H 01/29/20 Unknown Total Protein 3.6 g/dL (6.3-8.2) L D 02/06/20 05:11 Albumin 1.2 g/dL (3.9-5) L 02/06/20 05:11 Albumin/Globulin Ratio 0.5 % 02/06/20 05:11 TSH 2.440 mlU/mL (0.270-4.200) 01/10/20 10:10 Procalcitonin 1.86 ng/mL (<0.15) 01/29/20 Unknown Arterial Blood Glucose 143 mg/dL (65-95) H 02/09/20 03:04 Arterial Blood Ionized Calcium 4.6 mg/dL (4.6-5.3) 02/09/20 03:04 Urine Color [place] (Yellow) 01/08/20 Unknown Urine Turbidity Cloudy (Clear) 01/08/20 Unknown Urine pH 5.0 (5.0-7.0) 01/08/20 Unknown Ur Specific [place] 1.018 (1.003-1.030) 01/08/20 Unknown Urine Protein 30 mg/dl mg/dL (Negative) 01/08/20 Unknown Urine Glucose (UA) Neg mg/dL (Negative) 01/08/20 Unknown Urine Ketones Neg mg/dL (Negative) 01/08/20 Unknown Urine Blood Mod (Negative) 01/08/20 Unknown Urine Nitrite Neg (Negative) 01/08/20 Unknown Urine Bilirubin Neg (Negative) 01/08/20 Unknown Urine Urobilinogen < 2.0 mg/dL (<2.0) 01/08/20 Unknown Ur Leukocyte Esterase Sm (Negative) 01/08/20 Unknown Urine WBC (Auto) 11.0 /HPF (0.0-6.0) H 01/08/20 Unknown Urine RBC (Auto) 7.0 /HPF (0.0-6.0) 01/08/20 Unknown U Epithel Cells (Auto) < 1.0 /HPF (0-13.0) 01/08/20 Unknown Urine Bacteria (Auto) 1+ /HPF (Negative) 01/08/20 Unknown Urine Mucus 2+ /HPF 01/08/20 Unknown Urine Yeast (Budding) 1+ /HPF 01/08/20 Unknown Vancomycin Trough 7.9 ug/mL (5.0-20.0) 01/17/20 16:04 Mejía/IV: Voiding Method Indwelling Catheter IV Catheter Type [Left Upper PICC Line arm] IV Catheter Type [Right Upper Mid-line arm] IV Catheter Type [Right Peripheral IV Forearm] Active Medications - Current Medications Current Medications: Generic Name Dose Route Start Last Admin Trade Name Freq PRN Reason Stop Dose Admin Acetaminophen 650 mg 01/08/20 23:14 01/18/20 06:03 Tylenol PO 650 mg Q4H PRN Administration Pain MILD(1-3)/Fever >100.5/GARCIA Lipase/Protease/Amylase 1 each 01/17/20 08:37 Pancreaze 10,500 Unit FEEDTUBE PRN PRN For Clogged Feeding Tube Atorvastatin Calcium 10 mg 01/09/20 22:00 02/09/20 21:49 Atorvastatin PO 10 mg QHS BRO Administration Dextrose 0 ml 01/08/20 23:14 02/08/20 18:26 D50w (25gm) Syringe IV 10 ml Q30MIN PRN Administration Hypoglycemia Protocol Donepezil HCl 10 mg 01/09/20 22:00 02/09/20 21:49 Aricept PO 10 mg QHS BRO Administration Famotidine 20 mg 01/27/20 10:00 02/09/20 21:49 Pepcid PO 20 mg BID BRO Administration Ferrous Sulfate 308 mg 02/09/20 12:00 02/09/20 13:52 Ferrous Sulfate FEEDTUBE 308 mg DAILY BRO Administration Fluticasone Propionate 100 mcg 01/25/20 20:00 01/26/20 06:09 Flonase NS 100 mcg QDAY PRN Administration Nasal Congestion Heparin Sodium (Porcine) 5,000 unit 01/28/20 10:00 02/09/20 21:49 Heparin SUB-Q 5,000 unit Q12HR BRO Administration Hydrophilic Ointment 1 applic 01/28/20 10:57 Vaseline Lip Therapy TP Q2HR PRN Dry Lips Piperacillin Sod/Tazobactam Sod 4.5 gm in 100 mls @ 200 mls/hr 01/19/20 14:00 02/10/20 06:55 Zosyn/Ns 4.5gm/100ml IV 02/27/20 22:29 Infused Q8HR BRO Infusion Protocol Norepinephrine 4 mg in 250 mls @ 7.5 mls/hr 02/05/20 01:00 02/06/20 15:32 Levophed Drip 4 Mg/Ns 250 Ml IV Infused TITR BRO Titration Protocol 2 MCG/MIN Insulin Glargine 5 units 02/06/20 10:00 02/09/20 10:02 Lantus SUB-Q 5 units DAILY BRO Administration Insulin Human Regular 0 unit 01/27/20 12:00 02/10/20 06:00 Humulin R SUB-Q Not Given Q6HR BRO Protocol Magnesium Hydroxide 30 ml 01/08/20 23:14 Milk Of Magnesia PO Q4H PRN Constipation Megestrol Acetate 400 mg 01/12/20 11:00 02/09/20 10:02 Megestrol PO 400 mg QDAY BRO Administration Mirtazapine 15 mg 01/09/20 22:00 02/09/20 21:49 Remeron PO 15 mg QHS BRO Administration Multi-Ingred Cream/Lotion/Oil/Oint 1 applic 01/28/20 10:57 Artificial Tears Ophth Oint OU Q4HR PRN Dry Eye(s) Multivitamins 5 ml 02/09/20 12:00 02/09/20 13:20 Centrum Liq PO 5 ml QDAY BRO Administration Neomycin/Polymyxin/Bacitracin 1 applic 02/08/20 04:45 02/09/20 09:31 Triple Antibiotic TP 1 applic QDAY BRO Administration Ondansetron HCl 4 mg 01/08/20 23:14 Zofran IV Q8H PRN Nausea And Vomiting Scopolamine 1 each 02/05/20 10:00 02/08/20 10:05 Transderm-Scop TD 1 each Q3D BRO Administration Simple Syrup 15 ml 01/17/20 08:37 Simple Syrup FEEDTUBE PRN PRN Hypoglycemia Simple Syrup 30 ml 01/17/20 08:37 Simple Syrup FEEDTUBE PRN PRN Hypoglycemia Sodium Bicarbonate 325 mg 01/17/20 08:37 Sodium Bicarbonate FEEDTUBE PRN PRN For Clogged Feeding Tube Sodium Chloride 10 ml 01/09/20 10:00 02/09/20 21:50 Sodium Chloride Flush Syringe 10 Ml IV 10 ml BID BRO Administration Sodium Chloride 10 ml 01/08/20 23:14 Sodium Chloride Flush Syringe 10 Ml IV PRN PRN LINE FLUSH Trazodone HCl 25 mg 01/09/20 22:00 02/09/20 21:48 Desyrel PO 25 mg QHS BRO Administration Nutrition/Malnutrition Assess - Dietary Evaluation Nutrition/Malnutrition Findings: Nutrition Notes Start: 01/09/20 12:13 Freq: Status: Active Protocol: Document 02/03/20 11:26 [email or web address] (Rec: 02/03/20 13:23 [email or web address]) Co-Sign 02/03/20 11:26 NHALL Nutrition Notes Initial or Follow up Reassessment Current Diagnosis Decubitus(Pressure Ulcer), Diabetes,Sepsis Other Pertinent Diagnosis UTI, dementia, PE, Sacral wound Current Diet Vital AF 1.2 at 50ml/hr Labs/Tests K 3.1 BUN 29 BG 160 Pertinent Medications Solucortef KCl 20mEq Height 5 ft 2 in Weight 65 kg [place] Body Weight (kg) 50.00 BMI 26.2 Weight change and time frame Wt change noted. Pt has edema Subjective/Other Information F/U for TF tolerance. Pt extubated yesterday. No TF running at time of visit. Per RN, TF running at goal rate Burn Absent Trauma Absent Current % PO Negligible Minimum of two criteria Yes Fluid Accumulation Moderate to Severe (severe) Reduced [employer] Strength Measurably Reduced (severe) #3 Nutrition Diagnosis Malnutrition Diagnosis Progress(for reassessment Continues documentation) #2 Nutrition Diagnosis Inadequate oral intake Diagnosis Progress(for reassessment Continues documentation) #1 Nutrition Diagnosis Increased nutrient needs ( specify in comment below) Diagnosis Progress(for reassessment Continues documentation) Is patient on ventilator? No Is Patient Ambulatory and/or Out of Bed No REE-([place]-confined to bed) 1353.840 Kcal/Kg value to use for calculation 24 Approximate Energy Requirements Using 1560 kcal/Kg Calculation Used for Recommendations Kcal/kg Additional Notes Protein Needs: 81-98g(1.25-1.5 ) Fluid Needs: 1ml/kcal Nutrition Intervention Change Diet Order: Continue Nutrition Support: Vital AF 1.2 at 50ml/hr Flush 200ml q4h per MD Kcal 1,440 Protein (gm) 90 Fluid (mL) 973 Goal #1 Meet at least 80% of kcal and protein needs via TF Goal #2 TF tolerance Goal #3 Wound Healing Anticipated Discharge Needs: Continue TF Follow-Up By: 02/10/20 Additional Comments F/U TF tolerance
[2020-02-10] MEDS: NEOMY 3.5 MG/BACIT 400 UNITS/POLY B 5000 UNITS OINT 15 GM TP SCH (09:21)
[2020-02-10] MEDS: FERROUS SULFATE 308 MG (62mg Elemental Iron) / 7 ML ELIXIR FEEDTUBE SCH (09:22)
[2020-02-10] MEDS: INSULIN GLARGINE 100 UNITS/ML SUB-Q SCH (09:23)
[2020-02-10] MEDS: FAMOTIDINE 20 MG TAB PO SCH ×2 (09:24→21:28)
[2020-02-10] MEDS: MULTIVITAMINS 5 ML ORAL LIQUID PO SCH (09:24)
[2020-02-10] MEDS: MEGESTROL 400 MG/10 ML ORAL LIQD PO SCH (09:24)
[2020-02-10] MEDS: HEPARIN 5,000 UNIT/1 ML VIAL SUB-Q SCH ×2 (09:24→21:27)
--- NOTE | 2020-02-10 12:39 | Progress Note ---
Assessment and Plan Severe sepsis with shock. Left lung atelectasis. Left pleural effusion. Acute hypoxemic respiratory failure on MVS s/p Cardiopulamanry arrest with ROSC x2 Severe sepsis with shock Acute possibly on chronic encephalopathy. History of diabetes. Urinary tract infection. History of pulmonary embolism, diagnosed several months ago. Sacral decubitus ulcer. Dementia. Anemia that is normocytic. -Monitor hemodynamics closely and hemoglobin -VAP bundle addressed, Daily SBT as tolerated -Wean FIO2 for O2 sats >92%, currently on FIO2 of 30% -Aspiration precautions, HOB >40 -Enteric nutritional support- has a PEG - continue bronchodilators with pulmonary hygiene per RT - continue accuchecks with glycemic control per SSI (While critically ill target blood glucose of 140-180 mg/dL; avoid hypoglycemia) - avoid nephrotoxins, renally dose all medications - continue to avoid benzodiazepines, reduce the possibility of delirium - complete antibiotics -on Zosyn for sacral osteomyelitis Discussed with ID - prn analgesia per CPOT score - Maintenance of sleep-wake cycle, avoid delirium -VTE prophylaxis with Heparin - Stress ulcer prophylaxis with Famotidine - PT/OT/ROM exercises - continue mobility protocol, frequent turning and off loading to prevent further pressure ulcers -Wound care with wound vac - Monitor hemodynamics closely -Free water flushes for hypernatremia - continue other care per attending / other consultants The patient has arrested twice and 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 She appears extremely debilitated and deconditioned and will benefit from trach and then wean off MVS. Surgery consult- plan fro trach placement later this week. COVID testing done for OR CONDITION: CRITICAL PROGNOSIS: GUARDED CODE STATUS: FULL CODE The high probability of a clinically significant, sudden or life-threatening deterioration of the [respiratory, cardiovascular & neurologic] system(s) required my full and direct attention, intervention and personal management. The aggregate critical care time was [33] minutes without overlap. Time includes spent on; [x] Data Review and interpretation [x] Patient assessment and monitoring of vital signs [x] Documentation [x] Medication orders and management Subjective Date of service: 02/10/20 Principal diagnosis: Septic Shock; S/P Cardiac Arrest; Ac. hypoxemic resp failure; UTI Interval history: Patient is seen today for: PEA arrest with ROSC, now orally intubated on MVS; Severe sepsis with shock ; Acute hypoxemic respiratory failure; Acute possibly on chronic encephalopathy; DM II ; UTI ; VTE Seen and examined at bedside; 24hour events reviewed; nursing and respiratory care staff consulted; no adverse overnight events reported to me; resting peacefully in bed; No fevers, no vomiting. Orally intubated, awake and alert. Not on any pressors. No overnight events. Has a Mejía and FMS is place Objective Vital Signs - 12hr 02/10/20 02/10/20 02/10/20 00:45 01:00 01:15 Temperature Pulse Rate 105 H 100 H 109 H Pulse Rate [ From Monitor] Respiratory 26 H 24 23 Rate Blood Pressure 116/68 116/60 116/60 O2 Sat by Pulse 100 100 100 Oximetry 02/10/20 02/10/20 02/10/20 01:30 01:45 02:00 Temperature Pulse Rate 108 H 105 H 103 H Pulse Rate [ From Monitor] Respiratory 27 H 19 26 H Rate Blood Pressure 132/79 122/67 125/68 O2 Sat by Pulse 100 100 100 Oximetry 02/10/20 02/10/20 02/10/20 02:15 02:30 02:45 Temperature Pulse Rate 104 H 98 H 101 H Pulse Rate [ From Monitor] Respiratory 28 H 28 H 26 H Rate Blood Pressure 132/69 119/64 115/67 O2 Sat by Pulse 100 100 100 Oximetry 02/10/20 02/10/20 02/10/20 03:00 03:15 03:30 Temperature Pulse Rate 100 H 98 H 99 H Pulse Rate [ From Monitor] Respiratory 27 H 15 24 Rate Blood Pressure 115/67 126/65 137/68 O2 Sat by Pulse 100 100 100 Oximetry 02/10/20 02/10/20 02/10/20 03:45 04:00 04:16 Temperature 97.8 F Pulse Rate 106 H 108 H 101 H Pulse Rate [ 100 H From Monitor] Respiratory 26 H 21 25 H Rate Blood Pressure 141/71 125/65 116/62 O2 Sat by Pulse 100 100 100 Oximetry 02/10/20 02/10/20 02/10/20 04:25 04:30 04:45 Temperature Pulse Rate 96 H 107 H 97 H Pulse Rate [ From Monitor] Respiratory 13 24 Rate Blood Pressure 116/92 116/62 112/61 O2 Sat by Pulse 100 100 100 Oximetry 02/10/20 02/10/20 02/10/20 05:00 05:15 05:30 Temperature Pulse Rate 94 H 99 H 100 H Pulse Rate [ From Monitor] Respiratory 22 22 23 Rate Blood Pressure 116/61 121/68 121/68 O2 Sat by Pulse 100 100 100 Oximetry 02/10/20 02/10/20 02/10/20 05:45 06:00 06:15 Temperature Pulse Rate 101 H 99 H 92 H Pulse Rate [ From Monitor] Respiratory 24 21 16 Rate Blood Pressure 125/70 125/70 121/74 O2 Sat by Pulse 100 100 100 Oximetry 02/10/20 02/10/20 02/10/20 06:30 06:46 07:00 Temperature Pulse Rate 87 87 81 Pulse Rate [ From Monitor] Respiratory 24 20 24 Rate Blood Pressure 121/74 104/65 94/61 O2 Sat by Pulse 100 100 100 Oximetry 02/10/20 02/10/20 02/10/20 07:16 07:30 07:45 Temperature Pulse Rate 89 94 H 85 Pulse Rate [ From Monitor] Respiratory 19 20 26 H Rate Blood Pressure 151/68 112/73 115/70 O2 Sat by Pulse 100 100 100 Oximetry 02/10/20 02/10/20 02/10/20 08:00 08:16 08:30 Temperature 98.6 F Pulse Rate 93 H 93 H 94 H Pulse Rate [ 91 H From Monitor] Respiratory 26 H 32 H 24 Rate Blood Pressure 115/70 123/69 114/69 O2 Sat by Pulse 100 100 100 Oximetry 02/10/20 02/10/20 02/10/20 08:37 08:46 09:00 Temperature Pulse Rate 87 89 88 Pulse Rate [ From Monitor] Respiratory 26 H 18 18 Rate Blood Pressure 114/69 129/66 129/66 O2 Sat by Pulse 100 100 100 Oximetry 02/10/20 02/10/20 02/10/20 09:15 09:30 09:45 Temperature Pulse Rate 89 91 H 87 Pulse Rate [ From Monitor] Respiratory 24 21 22 Rate Blood Pressure 121/67 125/71 110/63 O2 Sat by Pulse 100 100 100 Oximetry 02/10/20 02/10/20 02/10/20 10:00 10:16 10:30 Temperature Pulse Rate 86 81 82 Pulse Rate [ From Monitor] Respiratory 17 18 23 Rate Blood Pressure 102/63 113/56 115/59 O2 Sat by Pulse 100 100 100 Oximetry 02/10/20 02/10/20 02/10/20 10:46 11:00 12:18 Temperature Pulse Rate 79 80 100 H Pulse Rate [ From Monitor] Respiratory 21 17 24 Rate Blood Pressure 121/59 123/59 115/62 O2 Sat by Pulse 100 100 100 Oximetry Constitutional: no acute distress, alert, other (elderly chronically ill looking female orally intubated to [facility]) Eyes: non-icteric ENT: oropharynx moist, other (ETT 7.5 cm at 22 [address]) Neck: supple, no lymphadenopathy Effort: normal Ascultation: Bilateral: clear, diminished breath sounds, rales (bases predo minant), rhonchi (scant) Percussion: Bilateral: not dull Cardiovascular: regular rate and rhythm, other (S1,S2) Gastrointestinal: normoactive bowel sounds, soft, non-tender, other (PEG in place) Integumentary: decubitus ulcer Extremities: no cyanosis, pulses normal, no ischemia or petechiae, edema, other (bilateral upper extremity edema) Neurologic: pupils equal and round, other (awake and alert, not obeying commands) Psychiatric: other (Unable to assess secondary to mental status) CBC and BMP: 02/09/20 Unknown 02/09/20 08:00 ABG, PT/INR, D-dimer: ABG ABG pH 7.502 pH Units (7.350-7.450) H 02/10/20 04:38 POC ABG pCO2 41.0 mmHg (32.0-48.0) 02/09/20 03:04 ABG pCO2 38.3 mm Hg 02/10/20 04:38 POC ABG pO2 100.0 mmHg (83-108) 02/09/20 03:04 ABG pO2 136.0 mm Hg (80.0-90.0) H 02/10/20 04:38 POC ABG HCO3 31.9 02/09/20 03:04 ABG O2 Saturation 98.8 % (95.0-99.0) 02/10/20 04:38 PT/INR, D-dimer PT 14.4 Sec. (12.2-14.9) 02/02/20 05:25 INR 1.11 (0.87-1.13) 02/02/20 05:25 Abnormal lab findings: Abnormal Labs 01/08/20 01/08/20 01/08/20 16:29 16:29 16:29 WBC 13.5 H RBC Hgb Hct MCHC RDW 15.5 H Plt Count MCH Lymph % (Auto) Lymph # Lymph # (Auto) Seg Neutrophils % Seg Neuts % (Manual) 85.0 H Lymphocytes % (Manual) 11.0 L Seg Neutrophils # Seg Neutrophils # Man 11.5 H Nucleated RBC % Lymphocytes # (Manual) Monocytes # (Manual) PT INR Heparin Anti-Xa Level POC ABG pO2 ABG pH POC ABG pCO2 ABG Hemoglobin ABG Oxyhemoglobin ABG pO2 ABG HCO3 ABG O2 Saturation ABG Base Excess ABG Potassium ABG Chloride ABG Glucose Oxyhemoglobin Sodium 161 H* Potassium Chloride 125.5 H Carbon Dioxide 20 L BUN 30 H Creatinine Glucose 115 H POC Glucose Lactic Acid 2.20 H* Calcium 7.9 L AST 48 H Phosphorus Total Protein Albumin 2.5 L C-Reactive Protein Arterial Blood Glucose Arterial Blood Ionized Calcium Urine WBC (Auto) 01/08/20 01/08/20 01/08/20 19:02 23:30 Unknown WBC RBC Hgb Hct MCHC RDW Plt Count MCH Lymph % (Auto) Lymph # Lymph # (Auto) Seg Neutrophils % Seg Neuts % (Manual) Lymphocytes % (Manual) Seg Neutrophils # Seg Neutrophils # Man Nucleated RBC % Lymphocytes # (Manual) Monocytes # (Manual) PT INR Heparin Anti-Xa Level POC ABG pO2 ABG pH POC ABG pCO2 ABG Hemoglobin ABG Oxyhemoglobin ABG pO2 ABG HCO3 ABG O2 Saturation ABG Base Excess ABG Potassium ABG Chloride ABG Glucose Oxyhemoglobin Sodium Potassium Chloride Carbon Dioxide BUN Creatinine Glucose POC Glucose Lactic Acid 2.10 H* 2.50 H* Calcium AST Phosphorus Total Protein Albumin C-Reactive Protein Arterial Blood Glucose Arterial Blood Ionized Calcium Urine WBC (Auto) 11.0 H 01/09/20 01/09/20 01/09/20 00:19 00:54 05:52 WBC 13.5 H RBC 3.02 L Hgb 9.0 L D Hct 27.4 L D MCHC RDW Plt Count MCH Lymph % (Auto) 9.1 L Lymph # Lymph # (Auto) Seg Neutrophils % 87.6 H Seg Neuts % (Manual) Lymphocytes % (Manual) Seg Neutrophils # 11.8 H Seg Neutrophils # Man Nucleated RBC % Lymphocytes # (Manual) Monocytes # (Manual) PT INR Heparin Anti-Xa Level POC ABG pO2 ABG pH POC ABG pCO2 ABG Hemoglobin ABG Oxyhemoglobin ABG pO2 ABG HCO3 ABG O2 Saturation ABG Base Excess ABG Potassium ABG Chloride ABG Glucose Oxyhemoglobin Sodium Potassium Chloride Carbon Dioxide BUN Creatinine Glucose POC Glucose 118 H 116 H Lactic Acid Calcium AST Phosphorus Total Protein Albumin C-Reactive Protein Arterial Blood Glucose Arterial Blood Ionized Calcium Urine WBC (Auto) 01/09/20 01/09/20 01/09/20 05:52 05:52 13:03 WBC RBC Hgb Hct MCHC RDW Plt Count MCH Lymph % (Auto) Lymph # Lymph # (Auto) Seg Neutrophils % Seg Neuts % (Manual) Lymphocytes % (Manual) Seg Neutrophils # Seg Neutrophils # Man Nucleated RBC % Lymphocytes # (Manual) Monocytes # (Manual) PT 17.1 H INR 1.36 H Heparin Anti-Xa Level POC ABG pO2 ABG pH POC ABG pCO2 ABG Hemoglobin ABG Oxyhemoglobin ABG pO2 ABG HCO3 ABG O2 Saturation ABG Base Excess ABG Potassium ABG Chloride ABG Glucose Oxyhemoglobin Sodium 162 H* Potassium 3.0 L D Chloride 128.3 H Carbon Dioxide BUN 23 H Creatinine Glucose POC Glucose 55 L Lactic Acid Calcium 7.6 L AST Phosphorus Total Protein Albumin C-Reactive Protein Arterial Blood Glucose Arterial Blood Ionized Calcium Urine WBC (Auto) 01/09/20 01/09/20 01/09/20 21:22 21:50 22:28 WBC RBC Hgb Hct MCHC RDW Plt Count MCH Lymph % (Auto) Lymph # Lymph # (Auto) Seg Neutrophils % Seg Neuts % (Manual) Lymphocytes % (Manual) Seg Neutrophils # Seg Neutrophils # Man Nucleated RBC % Lymphocytes # (Manual) Monocytes # (Manual) PT INR Heparin Anti-Xa Level POC ABG pO2 ABG pH POC ABG pCO2 ABG Hemoglobin ABG Oxyhemoglobin ABG pO2 ABG HCO3 ABG O2 Saturation ABG Base Excess ABG Potassium ABG Chloride ABG Glucose Oxyhemoglobin Sodium 159 H Potassium 5.1 H D Chloride 128.5 H Carbon Dioxide 16 L BUN 23 H Creatinine Glucose 51 L POC Glucose 52 L 106 H Lactic Acid Calcium 8.2 L AST Phosphorus Total Protein Albumin C-Reactive Protein Arterial Blood Glucose Arterial Blood Ionized Calcium Urine WBC (Auto) 01/10/20 01/10/20 01/10/20 05:23 09:11 10:10 WBC 13.4 H RBC Hgb Hct MCHC RDW Plt Count MCH Lymph % (Auto) 7.2 L Lymph # 1.0 L Lymph # (Auto) Seg Neutrophils % 90.0 H Seg Neuts % (Manual) Lymphocytes % (Manual) Seg Neutrophils # 12.0 H Seg Neutrophils # Man Nucleated RBC % Lymphocytes # (Manual) Monocytes # (Manual) PT INR Heparin Anti-Xa Level POC ABG pO2 ABG pH POC ABG pCO2 ABG Hemoglobin ABG Oxyhemoglobin ABG pO2 ABG HCO3 ABG O2 Saturation ABG Base Excess ABG Potassium ABG Chloride ABG Glucose Oxyhemoglobin Sodium 155 H Potassium Chloride 122.8 H Carbon Dioxide 21 L BUN 19 H Creatinine Glucose POC Glucose 120 H Lactic Acid Calcium AST Phosphorus Total Protein Albumin C-Reactive Protein Arterial Blood Glucose Arterial Blood Ionized Calcium Urine WBC (Auto) 01/10/20 01/10/20 01/10/20 11:47 11:57 17:09 WBC RBC Hgb Hct MCHC RDW Plt Count MCH Lymph % (Auto) Lymph # Lymph # (Auto) Seg Neutrophils % Seg Neuts % (Manual) Lymphocytes % (Manual) Seg Neutrophils # Seg Neutrophils # Man Nucleated RBC % Lymphocytes # (Manual) Monocytes # (Manual) PT INR Heparin Anti-Xa Level POC ABG pO2 ABG pH POC ABG pCO2 ABG Hemoglobin ABG Oxyhemoglobin ABG pO2 ABG HCO3 ABG O2 Saturation ABG Base Excess ABG Potassium ABG Chloride ABG Glucose Oxyhemoglobin Sodium 153 H Potassium Chloride 118.3 H Carbon Dioxide 20 L BUN 19 H Creatinine Glucose 113 H POC Glucose 142 H 125 H Lactic Acid Calcium AST Phosphorus Total Protein Albumin C-Reactive Protein Arterial Blood Glucose Arterial Blood Ionized Calcium Urine WBC (Auto) 01/10/20 01/10/20 01/11/20 20:27 22:00 00:45 WBC RBC Hgb Hct MCHC RDW Plt Count MCH Lymph % (Auto) Lymph # Lymph # (Auto) Seg Neutrophils % Seg Neuts % (Manual) Lymphocytes % (Manual) Seg Neutrophils # Seg Neutrophils # Man Nucleated RBC % Lymphocytes # (Manual) Monocytes # (Manual) PT INR Heparin Anti-Xa Level POC ABG pO2 ABG pH POC ABG pCO2 ABG Hemoglobin ABG Oxyhemoglobin ABG pO2 ABG HCO3 ABG O2 Saturation ABG Base Excess ABG Potassium ABG Chloride ABG Glucose Oxyhemoglobin Sodium 153 H 154 H Potassium 3.3 L 3.2 L Chloride 117.0 H 118.9 H Carbon Dioxide 20 L BUN Creatinine Glucose POC Glucose 136 H Lactic Acid Calcium 8.3 L 8.0 L AST Phosphorus Total Protein Albumin C-Reactive Protein Arterial Blood Glucose Arterial Blood Ionized Calcium Urine WBC (Auto) 01/11/20 01/11/20 01/11/20 07:06 08:03 11:54 WBC RBC Hgb Hct MCHC RDW Plt Count MCH Lymph % (Auto) Lymph # Lymph # (Auto) Seg Neutrophils % Seg Neuts % (Manual) Lymphocytes % (Manual) Seg Neutrophils # Seg Neutrophils # Man Nucleated RBC % Lymphocytes # (Manual) Monocytes # (Manual) PT INR Heparin Anti-Xa Level POC ABG pO2 ABG pH POC ABG pCO2 ABG Hemoglobin ABG Oxyhemoglobin ABG pO2 ABG HCO3 ABG O2 Saturation ABG Base Excess ABG Potassium ABG Chloride ABG Glucose Oxyhemoglobin Sodium 151 H Potassium Chloride 118.7 H Carbon Dioxide 21 L BUN Creatinine Glucose 107 H POC Glucose 118 H 164 H Lactic Acid Calcium 8.3 L AST Phosphorus Total Protein Albumin C-Reactive Protein Arterial Blood Glucose Arterial Blood Ionized Calcium Urine WBC (Auto) 01/11/20 01/12/20 01/12/20 16:28 00:19 05:40 WBC RBC Hgb Hct MCHC RDW Plt Count MCH Lymph % (Auto) Lymph # Lymph # (Auto) Seg Neutrophils % Seg Neuts % (Manual) Lymphocytes % (Manual) Seg Neutrophils # Seg Neutrophils # Man Nucleated RBC % Lymphocytes # (Manual) Monocytes # (Manual) PT INR Heparin Anti-Xa Level POC ABG pO2 ABG pH POC ABG pCO2 ABG Hemoglobin ABG Oxyhemoglobin ABG pO2 ABG HCO3 ABG O2 Saturation ABG Base Excess ABG Potassium ABG Chloride ABG Glucose Oxyhemoglobin Sodium 148 H Potassium Chloride 111.6 H Carbon Dioxide 19 L BUN Creatinine Glucose 128 H POC Glucose 132 H 179 H Lactic Acid Calcium 8.2 L AST Phosphorus Total Protein Albumin C-Reactive Protein Arterial Blood Glucose Arterial Blood Ionized Calcium Urine WBC (Auto) 01/12/20 01/12/20 01/12/20 06:17 11:37 17:21 WBC RBC Hgb Hct MCHC RDW Plt Count MCH Lymph % (Auto) Lymph # Lymph # (Auto) Seg Neutrophils % Seg Neuts % (Manual) Lymphocytes % (Manual) Seg Neutrophils # Seg Neutrophils # Man Nucleated RBC % Lymphocytes # (Manual) Monocytes # (Manual) PT INR Heparin Anti-Xa Level POC ABG pO2 ABG pH POC ABG pCO2 ABG Hemoglobin ABG Oxyhemoglobin ABG pO2 ABG HCO3 ABG O2 Saturation ABG Base Excess ABG Potassium ABG Chloride ABG Glucose Oxyhemoglobin Sodium Potassium Chloride Carbon Dioxide BUN Creatinine Glucose POC Glucose 140 H 142 H 133 H Lactic Acid Calcium AST Phosphorus Total Protein Albumin C-Reactive Protein Arterial Blood Glucose Arterial Blood Ionized Calcium Urine WBC (Auto) 01/12/20 01/13/20 01/13/20 23:14 05:26 07:00 WBC RBC Hgb Hct MCHC RDW Plt Count MCH Lymph % (Auto) Lymph # Lymph # (Auto) Seg Neutrophils % Seg Neuts % (Manual) Lymphocytes % (Manual) Seg Neutrophils # Seg Neutrophils # Man Nucleated RBC % Lymphocytes # (Manual) Monocytes # (Manual) PT INR Heparin Anti-Xa Level POC ABG pO2 ABG pH POC ABG pCO2 ABG Hemoglobin ABG Oxyhemoglobin ABG pO2 ABG HCO3 ABG O2 Saturation ABG Base Excess ABG Potassium ABG Chloride ABG Glucose Oxyhemoglobin Sodium Potassium Chloride 110.0 H Carbon Dioxide BUN Creatinine Glucose 139 H POC Glucose 135 H 162 H Lactic Acid Calcium 7.8 L AST Phosphorus Total Protein Albumin C-Reactive Protein Arterial Blood Glucose Arterial Blood Ionized Calcium Urine WBC (Auto) 01/13/20 01/13/20 01/13/20 12:14 17:52 21:40 WBC RBC Hgb Hct MCHC RDW Plt Count MCH Lymph % (Auto) Lymph # Lymph # (Auto) Seg Neutrophils % Seg Neuts % (Manual) Lymphocytes % (Manual) Seg Neutrophils # Seg Neutrophils # Man Nucleated RBC % Lymphocytes # (Manual) Monocytes # (Manual) PT INR Heparin Anti-Xa Level POC ABG pO2 ABG pH POC ABG pCO2 ABG Hemoglobin ABG Oxyhemoglobin ABG pO2 ABG HCO3 ABG O2 Saturation ABG Base Excess ABG Potassium ABG Chloride ABG Glucose Oxyhemoglobin Sodium Potassium Chloride Carbon Dioxide BUN Creatinine Glucose POC Glucose 205 H 172 H 186 H Lactic Acid Calcium AST Phosphorus Total Protein Albumin C-Reactive Protein Arterial Blood Glucose Arterial Blood Ionized Calcium Urine WBC (Auto) 01/14/20 01/14/20 01/14/20 04:28 11:01 11:01 WBC 14.8 H RBC 3.20 L Hgb 9.5 L Hct 28.0 L MCHC RDW Plt Count MCH Lymph % (Auto) Lymph # Lymph # (Auto) Seg Neutrophils % Seg Neuts % (Manual) Lymphocytes % (Manual) Seg Neutrophils # Seg Neutrophils # Man Nucleated RBC % Lymphocytes # (Manual) Monocytes # (Manual) PT INR Heparin Anti-Xa Level POC ABG pO2 ABG pH POC ABG pCO2 ABG Hemoglobin ABG Oxyhemoglobin ABG pO2 ABG HCO3 ABG O2 Saturation ABG Base Excess ABG Potassium ABG Chloride ABG Glucose Oxyhemoglobin Sodium Potassium 3.2 L Chloride Carbon Dioxide BUN Creatinine 0.4 L Glucose POC Glucose 115 H Lactic Acid Calcium 8.0 L AST Phosphorus Total Protein Albumin C-Reactive Protein Arterial Blood Glucose Arterial Blood Ionized Calcium Urine WBC (Auto) 01/14/20 01/14/20 01/14/20 11:01 16:33 22:32 WBC RBC Hgb Hct MCHC RDW Plt Count MCH Lymph % (Auto) Lymph # Lymph # (Auto) Seg Neutrophils % Seg Neuts % (Manual) Lymphocytes % (Manual) Seg Neutrophils # Seg Neutrophils # Man Nucleated RBC % Lymphocytes # (Manual) Monocytes # (Manual) PT 15.8 H INR 1.23 H Heparin Anti-Xa Level POC ABG pO2 ABG pH POC ABG pCO2 ABG Hemoglobin ABG Oxyhemoglobin ABG pO2 ABG HCO3 ABG O2 Saturation ABG Base Excess ABG Potassium ABG Chloride ABG Glucose Oxyhemoglobin Sodium Potassium Chloride Carbon Dioxide BUN Creatinine Glucose POC Glucose 58 L 188 H Lactic Acid Calcium AST Phosphorus Total Protein Albumin C-Reactive Protein Arterial Blood Glucose Arterial Blood Ionized Calcium Urine WBC (Auto) 01/15/20 01/15/20 01/15/20 05:35 06:19 17:17 WBC RBC Hgb Hct MCHC RDW Plt Count MCH Lymph % (Auto) Lymph # Lymph # (Auto) Seg Neutrophils % Seg Neuts % (Manual) Lymphocytes % (Manual) Seg Neutrophils # Seg Neutrophils # Man Nucleated RBC % Lymphocytes # (Manual) Monocytes # (Manual) PT INR Heparin Anti-Xa Level POC ABG pO2 ABG pH POC ABG pCO2 ABG Hemoglobin ABG Oxyhemoglobin ABG pO2 ABG HCO3 ABG O2 Saturation ABG Base Excess ABG Potassium ABG Chloride ABG Glucose Oxyhemoglobin Sodium Potassium Chloride Carbon Dioxide BUN Creatinine 0.5 L Glucose 104 H POC Glucose 106 H 183 H Lactic Acid Calcium 7.8 L AST Phosphorus Total Protein Albumin C-Reactive Protein Arterial Blood Glucose Arterial Blood Ionized Calcium Urine WBC (Auto) 01/15/20 01/16/20 01/16/20 22:29 05:35 05:59 WBC 14.7 H RBC 3.04 L Hgb 9.0 L Hct 27.0 L MCHC RDW Plt Count MCH Lymph % (Auto) 9.1 L Lymph # Lymph # (Auto) Seg Neutrophils % 87.3 H Seg Neuts % (Manual) Lymphocytes % (Manual) Seg Neutrophils # 12.9 H Seg Neutrophils # Man Nucleated RBC % Lymphocytes # (Manual) Monocytes # (Manual) PT INR Heparin Anti-Xa Level POC ABG pO2 ABG pH POC ABG pCO2 ABG Hemoglobin ABG Oxyhemoglobin ABG pO2 ABG HCO3 ABG O2 Saturation ABG Base Excess ABG Potassium ABG Chloride ABG Glucose Oxyhemoglobin Sodium Potassium Chloride Carbon Dioxide BUN Creatinine Glucose POC Glucose 228 H 130 H Lactic Acid Calcium AST Phosphorus Total Protein Albumin C-Reactive Protein Arterial Blood Glucose Arterial Blood Ionized Calcium Urine WBC (Auto) 01/16/20 01/16/20 01/16/20 09:52 12:49 17:30 WBC RBC Hgb Hct MCHC RDW Plt Count MCH Lymph % (Auto) Lymph # Lymph # (Auto) Seg Neutrophils % Seg Neuts % (Manual) Lymphocytes % (Manual) Seg Neutrophils # Seg Neutrophils # Man Nucleated RBC % Lymphocytes # (Manual) Monocytes # (Manual) PT INR Heparin Anti-Xa Level POC ABG pO2 ABG pH POC ABG pCO2 ABG Hemoglobin ABG Oxyhemoglobin ABG pO2 ABG HCO3 ABG O2 Saturation ABG Base Excess ABG Potassium ABG Chloride ABG Glucose Oxyhemoglobin Sodium Potassium Chloride Carbon Dioxide BUN Creatinine Glucose POC Glucose 122 H 142 H 192 H Lactic Acid Calcium AST Phosphorus Total Protein Albumin C-Reactive Protein Arterial Blood Glucose Arterial Blood Ionized Calcium Urine WBC (Auto) 01/16/20 01/17/20 01/17/20 23:01 08:36 08:36 WBC 12.7 H RBC 2.98 L Hgb 8.9 L Hct 26.4 L MCHC RDW Plt Count MCH Lymph % (Auto) 8.8 L Lymph # 1.1 L Lymph # (Auto) Seg Neutrophils % 86.7 H Seg Neuts % (Manual) Lymphocytes % (Manual) Seg Neutrophils # 11.0 H Seg Neutrophils # Man Nucleated RBC % Lymphocytes # (Manual) Monocytes # (Manual) PT INR Heparin Anti-Xa Level POC ABG pO2 ABG pH POC ABG pCO2 ABG Hemoglobin ABG Oxyhemoglobin ABG pO2 ABG HCO3 ABG O2 Saturation ABG Base Excess ABG Potassium ABG Chloride ABG Glucose Oxyhemoglobin Sodium Potassium 3.3 L D Chloride Carbon Dioxide BUN Creatinine 0.4 L Glucose POC Glucose 141 H Lactic Acid Calcium 8.1 L AST Phosphorus Total Protein 4.6 L Albumin 1.6 L C-Reactive Protein Arterial Blood Glucose Arterial Blood Ionized Calcium Urine WBC (Auto) 01/17/20 01/17/20 01/18/20 11:43 23:56 06:27 WBC RBC Hgb Hct MCHC RDW Plt Count MCH Lymph % (Auto) Lymph # Lymph # (Auto) Seg Neutrophils % Seg Neuts % (Manual) Lymphocytes % (Manual) Seg Neutrophils # Seg Neutrophils # Man Nucleated RBC % Lymphocytes # (Manual) Monocytes # (Manual) PT INR Heparin Anti-Xa Level POC ABG pO2 ABG pH POC ABG pCO2 ABG Hemoglobin ABG Oxyhemoglobin ABG pO2 ABG HCO3 ABG O2 Saturation ABG Base Excess ABG Potassium ABG Chloride ABG Glucose Oxyhemoglobin Sodium Potassium Chloride Carbon Dioxide BUN Creatinine Glucose POC Glucose 137 H 215 H 122 H Lactic Acid Calcium AST Phosphorus Total Protein Albumin C-Reactive Protein Arterial Blood Glucose Arterial Blood Ionized Calcium Urine WBC (Auto) 01/18/20 01/18/20 01/18/20 07:31 07:31 11:39 WBC 12.1 H RBC 3.23 L Hgb 9.7 L Hct 28.7 L MCHC RDW Plt Count MCH Lymph % (Auto) 9.2 L Lymph # 1.1 L Lymph # (Auto) Seg Neutrophils % 85.0 H Seg Neuts % (Manual) Lymphocytes % (Manual) Seg Neutrophils # 10.3 H Seg Neutrophils # Man Nucleated RBC % Lymphocytes # (Manual) Monocytes # (Manual) PT INR Heparin Anti-Xa Level POC ABG pO2 ABG pH POC ABG pCO2 ABG Hemoglobin ABG Oxyhemoglobin ABG pO2 ABG HCO3 ABG O2 Saturation ABG Base Excess ABG Potassium ABG Chloride ABG Glucose Oxyhemoglobin Sodium Potassium Chloride Carbon Dioxide BUN Creatinine 0.4 L Glucose 108 H POC Glucose 172 H Lactic Acid Calcium AST Phosphorus Total Protein 5.3 L Albumin 2.1 L C-Reactive Protein Arterial Blood Glucose Arterial Blood Ionized Calcium Urine WBC (Auto) 01/18/20 01/19/20 01/19/20 18:22 00:15 11:30 WBC RBC Hgb Hct MCHC RDW Plt Count MCH Lymph % (Auto) Lymph # Lymph # (Auto) Seg Neutrophils % Seg Neuts % (Manual) Lymphocytes % (Manual) Seg Neutrophils # Seg Neutrophils # Man Nucleated RBC % Lymphocytes # (Manual) Monocytes # (Manual) PT INR Heparin Anti-Xa Level POC ABG pO2 ABG pH POC ABG pCO2 ABG Hemoglobin ABG Oxyhemoglobin ABG pO2 ABG HCO3 ABG O2 Saturation ABG Base Excess ABG Potassium ABG Chloride ABG Glucose Oxyhemoglobin Sodium Potassium Chloride Carbon Dioxide BUN Creatinine Glucose POC Glucose 119 H 135 H 163 H Lactic Acid Calcium AST Phosphorus Total Protein Albumin C-Reactive Protein Arterial Blood Glucose Arterial Blood Ionized Calcium Urine WBC (Auto) 01/19/20 01/19/20 01/20/20 17:44 22:59 03:44 WBC 11.1 H RBC 2.77 L Hgb 8.4 L Hct 25.0 L MCHC RDW Plt Count MCH Lymph % (Auto) Lymph # Lymph # (Auto) Seg Neutrophils % 74.6 H Seg Neuts % (Manual) Lymphocytes % (Manual) Seg Neutrophils # 8.3 H Seg Neutrophils # Man Nucleated RBC % Lymphocytes # (Manual) Monocytes # (Manual) PT INR Heparin Anti-Xa Level POC ABG pO2 ABG pH POC ABG pCO2 ABG Hemoglobin ABG Oxyhemoglobin ABG pO2 ABG HCO3 ABG O2 Saturation ABG Base Excess ABG Potassium ABG Chloride ABG Glucose Oxyhemoglobin Sodium Potassium Chloride Carbon Dioxide BUN Creatinine Glucose POC Glucose 161 H 182 H Lactic Acid Calcium AST Phosphorus Total Protein Albumin C-Reactive Protein Arterial Blood Glucose Arterial Blood Ionized Calcium Urine WBC (Auto) 01/20/20 01/21/20 01/21/20 03:44 00:07 05:51 WBC RBC 2.84 L Hgb 8.6 L Hct 25.5 L MCHC RDW Plt Count 463 H MCH Lymph % (Auto) Lymph # Lymph # (Auto) Seg Neutrophils % 76.9 H Seg Neuts % (Manual) Lymphocytes % (Manual) Seg Neutrophils # 7.8 H Seg Neutrophils # Man Nucleated RBC % Lymphocytes # (Manual) Monocytes # (Manual) PT INR Heparin Anti-Xa Level POC ABG pO2 ABG pH POC ABG pCO2 ABG Hemoglobin ABG Oxyhemoglobin ABG pO2 ABG HCO3 ABG O2 Saturation ABG Base Excess ABG Potassium ABG Chloride ABG Glucose Oxyhemoglobin Sodium Potassium Chloride Carbon Dioxide BUN Creatinine 0.4 L Glucose POC Glucose 68 L Lactic Acid Calcium 7.9 L AST Phosphorus Total Protein 4.7 L Albumin 1.9 L C-Reactive Protein Arterial Blood Glucose Arterial Blood Ionized Calcium Urine WBC (Auto) 01/21/20 01/21/20 01/21/20 05:51 05:58 11:25 WBC RBC Hgb Hct MCHC RDW Plt Count MCH Lymph % (Auto) Lymph # Lymph # (Auto) Seg Neutrophils % Seg Neuts % (Manual) Lymphocytes % (Manual) Seg Neutrophils # Seg Neutrophils # Man Nucleated RBC % Lymphocytes # (Manual) Monocytes # (Manual) PT INR Heparin Anti-Xa Level POC ABG pO2 ABG pH POC ABG pCO2 ABG Hemoglobin ABG Oxyhemoglobin ABG pO2 ABG HCO3 ABG O2 Saturation ABG Base Excess ABG Potassium ABG Chloride ABG Glucose Oxyhemoglobin Sodium Potassium Chloride Carbon Dioxide 20 L BUN Creatinine 0.5 L Glucose 130 H POC Glucose 185 H 163 H Lactic Acid Calcium 7.6 L AST Phosphorus Total Protein 5.0 L Albumin 1.9 L C-Reactive Protein Arterial Blood Glucose Arterial Blood Ionized Calcium Urine WBC (Auto) 01/21/20 01/21/20 01/22/20 16:22 21:17 01:28 WBC RBC 2.60 L Hgb 8.0 L Hct 23.3 L MCHC RDW Plt Count MCH Lymph % (Auto) Lymph # Lymph # (Auto) Seg Neutrophils % 74.8 H Seg Neuts % (Manual) Lymphocytes % (Manual) Seg Neutrophils # Seg Neutrophils # Man Nucleated RBC % Lymphocytes # (Manual) Monocytes # (Manual) PT INR Heparin Anti-Xa Level POC ABG pO2 ABG pH POC ABG pCO2 ABG Hemoglobin ABG Oxyhemoglobin ABG pO2 ABG HCO3 ABG O2 Saturation ABG Base Excess ABG Potassium ABG Chloride ABG Glucose Oxyhemoglobin Sodium Potassium Chloride Carbon Dioxide BUN Creatinine Glucose POC Glucose 177 H 67 L Lactic Acid Calcium AST Phosphorus Total Protein Albumin C-Reactive Protein Arterial Blood Glucose Arterial Blood Ionized Calcium Urine WBC (Auto) 01/22/20 01/22/20 01/22/20 01:28 01:28 12:06 WBC RBC Hgb Hct MCHC RDW Plt Count MCH Lymph % (Auto) Lymph # Lymph # (Auto) Seg Neutrophils % Seg Neuts % (Manual) Lymphocytes % (Manual) Seg Neutrophils # Seg Neutrophils # Man Nucleated RBC % Lymphocytes # (Manual) Monocytes # (Manual) PT INR Heparin Anti-Xa Level POC ABG pO2 ABG pH POC ABG pCO2 ABG Hemoglobin ABG Oxyhemoglobin ABG pO2 ABG HCO3 ABG O2 Saturation ABG Base Excess ABG Potassium ABG Chloride ABG Glucose Oxyhemoglobin Sodium Potassium Chloride 107.6 H Carbon Dioxide BUN Creatinine 0.4 L Glucose 152 H POC Glucose 203 H 140 H Lactic Acid Calcium 7.5 L AST Phosphorus Total Protein 4.0 L Albumin 2.0 L C-Reactive Protein Arterial Blood Glucose Arterial Blood Ionized Calcium Urine WBC (Auto) 01/22/20 01/22/20 01/23/20 16:24 22:55 06:10 WBC RBC 2.68 L Hgb 8.6 L Hct 24.1 L MCHC 36 H RDW Plt Count MCH Lymph % (Auto) Lymph # Lymph # (Auto) Seg Neutrophils % Seg Neuts % (Manual) 71.0 H Lymphocytes % (Manual) Seg Neutrophils # Seg Neutrophils # Man Nucleated RBC % Lymphocytes # (Manual) Monocytes # (Manual) PT INR Heparin Anti-Xa Level POC ABG pO2 ABG pH POC ABG pCO2 ABG Hemoglobin ABG Oxyhemoglobin ABG pO2 ABG HCO3 ABG O2 Saturation ABG Base Excess ABG Potassium ABG Chloride ABG Glucose Oxyhemoglobin Sodium Potassium Chloride Carbon Dioxide BUN Creatinine Glucose POC Glucose 205 H 196 H Lactic Acid Calcium AST Phosphorus Total Protein Albumin C-Reactive Protein Arterial Blood Glucose Arterial Blood Ionized Calcium Urine WBC (Auto) 01/23/20 01/23/20 01/23/20 06:10 07:35 11:59 WBC RBC Hgb Hct MCHC RDW Plt Count MCH Lymph % (Auto) Lymph # Lymph # (Auto) Seg Neutrophils % Seg Neuts % (Manual) Lymphocytes % (Manual) Seg Neutrophils # Seg Neutrophils # Man Nucleated RBC % Lymphocytes # (Manual) Monocytes # (Manual) PT INR Heparin Anti-Xa Level POC ABG pO2 ABG pH POC ABG pCO2 ABG Hemoglobin ABG Oxyhemoglobin ABG pO2 ABG HCO3 ABG O2 Saturation ABG Base Excess ABG Potassium ABG Chloride ABG Glucose Oxyhemoglobin Sodium Potassium Chloride 108.8 H Carbon Dioxide BUN Creatinine 0.4 L Glucose 105 H POC Glucose 111 H 123 H Lactic Acid Calcium 8.0 L AST Phosphorus Total Protein 4.9 L D Albumin 2.0 L C-Reactive Protein Arterial Blood Glucose Arterial Blood Ionized Calcium Urine WBC (Auto) 01/23/20 01/24/20 01/24/20 22:45 11:24 16:41 WBC RBC Hgb Hct MCHC RDW Plt Count MCH Lymph % (Auto) Lymph # Lymph # (Auto) Seg Neutrophils % Seg Neuts % (Manual) Lymphocytes % (Manual) Seg Neutrophils # Seg Neutrophils # Man Nucleated RBC % Lymphocytes # (Manual) Monocytes # (Manual) PT INR Heparin Anti-Xa Level POC ABG pO2 ABG pH POC ABG pCO2 ABG Hemoglobin ABG Oxyhemoglobin ABG pO2 ABG HCO3 ABG O2 Saturation ABG Base Excess ABG Potassium ABG Chloride ABG Glucose Oxyhemoglobin Sodium Potassium Chloride Carbon Dioxide BUN Creatinine Glucose POC Glucose 180 H 182 H 177 H Lactic Acid Calcium AST Phosphorus Total Protein Albumin C-Reactive Protein Arterial Blood Glucose Arterial Blood Ionized Calcium Urine WBC (Auto) 01/24/20 01/25/20 01/25/20 23:11 07:12 11:35 WBC RBC Hgb Hct MCHC RDW Plt Count MCH Lymph % (Auto) Lymph # Lymph # (Auto) Seg Neutrophils % Seg Neuts % (Manual) Lymphocytes % (Manual) Seg Neutrophils # Seg Neutrophils # Man Nucleated RBC % Lymphocytes # (Manual) Monocytes # (Manual) PT INR Heparin Anti-Xa Level POC ABG pO2 ABG pH POC ABG pCO2 ABG Hemoglobin ABG Oxyhemoglobin ABG pO2 ABG HCO3 ABG O2 Saturation ABG Base Excess ABG Potassium ABG Chloride ABG Glucose Oxyhemoglobin Sodium Potassium Chloride Carbon Dioxide BUN Creatinine Glucose POC Glucose 142 H 135 H 142 H Lactic Acid Calcium AST Phosphorus Total Protein Albumin C-Reactive Protein Arterial Blood Glucose Arterial Blood Ionized Calcium Urine WBC (Auto) 01/25/20 01/26/20 01/26/20 16:33 00:04 11:35 WBC RBC Hgb Hct MCHC RDW Plt Count MCH Lymph % (Auto) Lymph # Lymph # (Auto) Seg Neutrophils % Seg Neuts % (Manual) Lymphocytes % (Manual) Seg Neutrophils # Seg Neutrophils # Man Nucleated RBC % Lymphocytes # (Manual) Monocytes # (Manual) PT INR Heparin Anti-Xa Level POC ABG pO2 ABG pH POC ABG pCO2 ABG Hemoglobin ABG Oxyhemoglobin ABG pO2 ABG HCO3 ABG O2 Saturation ABG Base Excess ABG Potassium ABG Chloride ABG Glucose Oxyhemoglobin Sodium Potassium Chloride Carbon Dioxide BUN Creatinine Glucose POC Glucose 247 H 233 H 200 H Lactic Acid Calcium AST Phosphorus Total Protein Albumin C-Reactive Protein Arterial Blood Glucose Arterial Blood Ionized Calcium Urine WBC (Auto) 01/26/20 01/26/20 01/26/20 16:30 16:30 17:19 WBC RBC Hgb 7.4 L Hct 22.0 L MCHC RDW Plt Count MCH Lymph % (Auto) Lymph # Lymph # (Auto) Seg Neutrophils % Seg Neuts % (Manual) Lymphocytes % (Manual) Seg Neutrophils # Seg Neutrophils # Man Nucleated RBC % Lymphocytes # (Manual) Monocytes # (Manual) PT 18.4 H INR 1.50 H Heparin Anti-Xa Level POC ABG pO2 ABG pH POC ABG pCO2 ABG Hemoglobin ABG Oxyhemoglobin ABG pO2 ABG HCO3 ABG O2 Saturation ABG Base Excess ABG Potassium ABG Chloride ABG Glucose Oxyhemoglobin Sodium Potassium Chloride Carbon Dioxide BUN Creatinine Glucose POC Glucose 67 L Lactic Acid Calcium AST Phosphorus Total Protein Albumin C-Reactive Protein Arterial Blood Glucose Arterial Blood Ionized Calcium Urine WBC (Auto) 01/26/20 01/26/20 01/27/20 20:24 21:32 00:16 WBC RBC Hgb Hct MCHC RDW Plt Count MCH Lymph % (Auto) Lymph # Lymph # (Auto) Seg Neutrophils % Seg Neuts % (Manual) Lymphocytes % (Manual) Seg Neutrophils # Seg Neutrophils # Man Nucleated RBC % Lymphocytes # (Manual) Monocytes # (Manual) PT INR Heparin Anti-Xa Level POC ABG pO2 51.8 L ABG pH POC ABG pCO2 ABG Hemoglobin 8.5 L ABG Oxyhemoglobin 84.7 L ABG pO2 ABG HCO3 ABG O2 Saturation ABG Base Excess ABG Potassium ABG Chloride ABG Glucose Oxyhemoglobin Sodium Potassium Chloride Carbon Dioxide BUN Creatinine Glucose POC Glucose 162 H 141 H Lactic Acid Calcium AST Phosphorus Total Protein Albumin C-Reactive Protein Arterial Blood Glucose Arterial Blood Ionized Calcium Urine WBC (Auto) 01/27/20 01/27/20 01/27/20 01:42 02:18 05:57 WBC RBC Hgb Hct MCHC RDW Plt Count MCH Lymph % (Auto) Lymph # Lymph # (Auto) Seg Neutrophils % Seg Neuts % (Manual) Lymphocytes % (Manual) Seg Neutrophils # Seg Neutrophils # Man Nucleated RBC % Lymphocytes # (Manual) Monocytes # (Manual) PT INR Heparin Anti-Xa Level 2.00 H POC ABG pO2 ABG pH POC ABG pCO2 ABG Hemoglobin ABG Oxyhemoglobin ABG pO2 ABG HCO3 ABG O2 Saturation ABG Base Excess ABG Potassium ABG Chloride ABG Glucose Oxyhemoglobin Sodium Potassium Chloride Carbon Dioxide BUN Creatinine Glucose POC Glucose 183 H 124 H Lactic Acid Calcium AST Phosphorus Total Protein Albumin C-Reactive Protein Arterial Blood Glucose Arterial Blood Ionized Calcium Urine WBC (Auto) 01/27/20 01/27/20 01/27/20 06:30 06:30 12:23 WBC RBC 2.75 L Hgb 8.4 L Hct 24.9 L MCHC RDW 16.0 H Plt Count 474 H MCH Lymph % (Auto) 12.7 L Lymph # Lymph # (Auto) Seg Neutrophils % 83.2 H Seg Neuts % (Manual) Lymphocytes % (Manual) Seg Neutrophils # 8.4 H Seg Neutrophils # Man Nucleated RBC % Lymphocytes # (Manual) Monocytes # (Manual) PT INR Heparin Anti-Xa Level POC ABG pO2 ABG pH POC ABG pCO2 ABG Hemoglobin ABG Oxyhemoglobin ABG pO2 ABG HCO3 ABG O2 Saturation ABG Base Excess ABG Potassium ABG Chloride ABG Glucose Oxyhemoglobin Sodium Potassium 3.5 L Chloride 110.2 H Carbon Dioxide BUN Creatinine 0.4 L Glucose 101 H POC Glucose 126 H Lactic Acid Calcium 7.8 L AST Phosphorus Total Protein Albumin C-Reactive Protein Arterial Blood Glucose Arterial Blood Ionized Calcium Urine WBC (Auto) 01/27/20 01/27/20 01/28/20 17:31 23:40 00:00 WBC RBC Hgb Hct MCHC RDW Plt Count MCH Lymph % (Auto) Lymph # Lymph # (Auto) Seg Neutrophils % Seg Neuts % (Manual) Lymphocytes % (Manual) Seg Neutrophils # Seg Neutrophils # Man Nucleated RBC % Lymphocytes # (Manual) Monocytes # (Manual) PT INR Heparin Anti-Xa Level 2.00 H POC ABG pO2 ABG pH POC ABG pCO2 ABG Hemoglobin ABG Oxyhemoglobin ABG pO2 ABG HCO3 ABG O2 Saturation ABG Base Excess ABG Potassium ABG Chloride ABG Glucose Oxyhemoglobin Sodium Potassium Chloride Carbon Dioxide BUN Creatinine Glucose POC Glucose 133 H 136 H Lactic Acid Calcium AST Phosphorus Total Protein Albumin C-Reactive Protein Arterial Blood Glucose Arterial Blood Ionized Calcium Urine WBC (Auto) 01/28/20 01/28/20 01/28/20 04:26 04:26 05:35 WBC RBC Hgb 9.6 L Hct 28.5 L MCHC RDW Plt Count 508 H MCH Lymph % (Auto) Lymph # Lymph # (Auto) Seg Neutrophils % Seg Neuts % (Manual) Lymphocytes % (Manual) Seg Neutrophils # Seg Neutrophils # Man Nucleated RBC % Lymphocytes # (Manual) Monocytes # (Manual) PT INR Heparin Anti-Xa Level POC ABG pO2 ABG pH POC ABG pCO2 ABG Hemoglobin ABG Oxyhemoglobin ABG pO2 ABG HCO3 ABG O2 Saturation ABG Base Excess ABG Potassium ABG Chloride ABG Glucose Oxyhemoglobin Sodium Potassium Chloride Carbon Dioxide 19 L BUN 20 H Creatinine 0.5 L Glucose 103 H POC Glucose 135 H Lactic Acid Calcium 7.9 L AST Phosphorus Total Protein Albumin C-Reactive Protein Arterial Blood Glucose Arterial Blood Ionized Calcium Urine WBC (Auto) 01/28/20 01/28/20 01/28/20 08:50 11:10 11:51 WBC RBC Hgb Hct MCHC RDW Plt Count MCH Lymph % (Auto) Lymph # Lymph # (Auto) Seg Neutrophils % Seg Neuts % (Manual) Lymphocytes % (Manual) Seg Neutrophils # Seg Neutrophils # Man Nucleated RBC % Lymphocytes # (Manual) Monocytes # (Manual) PT INR Heparin Anti-Xa Level 0.74 H POC ABG pO2 67.2 L ABG pH POC ABG pCO2 ABG Hemoglobin 9.3 L ABG Oxyhemoglobin ABG pO2 ABG HCO3 ABG O2 Saturation ABG Base Excess ABG Potassium ABG Chloride ABG Glucose Oxyhemoglobin Sodium Potassium Chloride Carbon Dioxide BUN Creatinine Glucose POC Glucose 160 H Lactic Acid Calcium AST Phosphorus Total Protein Albumin C-Reactive Protein Arterial Blood Glucose Arterial Blood Ionized Calcium Urine WBC (Auto) 01/28/20 01/28/20 01/29/20 17:19 23:53 03:52 WBC RBC Hgb Hct MCHC RDW Plt Count MCH Lymph % (Auto) Lymph # Lymph # (Auto) Seg Neutrophils % Seg Neuts % (Manual) Lymphocytes % (Manual) Seg Neutrophils # Seg Neutrophils # Man Nucleated RBC % Lymphocytes # (Manual) Monocytes # (Manual) PT INR Heparin Anti-Xa Level POC ABG pO2 ABG pH 7.510 H POC ABG pCO2 ABG Hemoglobin 7.3 L ABG Oxyhemoglobin ABG pO2 357.0 H ABG HCO3 19.6 L ABG O2 Saturation 99.6 H ABG Base Excess -2.9 L ABG Potassium ABG Chloride ABG Glucose Oxyhemoglobin Sodium Potassium Chloride Carbon Dioxide BUN Creatinine Glucose POC Glucose 177 H 142 H Lactic Acid Calcium AST Phosphorus Total Protein Albumin C-Reactive Protein Arterial Blood Glucose Arterial Blood Ionized Calcium Urine WBC (Auto) 01/29/20 01/29/20 01/29/20 04:58 04:58 06:01 WBC 13.1 H RBC 2.75 L Hgb 8.6 L Hct 25.6 L MCHC RDW 17.7 H Plt Count MCH Lymph % (Auto) Lymph # Lymph # (Auto) Seg Neutrophils % Seg Neuts % (Manual) 91.0 H Lymphocytes % (Manual) 6.0 L Seg Neutrophils # Seg Neutrophils # Man 11.9 H Nucleated RBC % 1.0 H Lymphocytes # (Manual) 0.8 L Monocytes # (Manual) PT INR Heparin Anti-Xa Level POC ABG pO2 ABG pH POC ABG pCO2 ABG Hemoglobin ABG Oxyhemoglobin ABG pO2 ABG HCO3 ABG O2 Saturation ABG Base Excess ABG Potassium ABG Chloride ABG Glucose Oxyhemoglobin Sodium 148 H Potassium 3.5 L D Chloride 113.2 H Carbon Dioxide 21 L BUN 20 H Creatinine Glucose 137 H POC Glucose 167 H Lactic Acid Calcium 8.1 L AST Phosphorus Total Protein Albumin C-Reactive Protein Arterial Blood Glucose Arterial Blood Ionized Calcium Urine WBC (Auto) 01/29/20 01/29/20 01/29/20 11:45 17:52 23:49 WBC RBC Hgb Hct MCHC RDW Plt Count MCH Lymph % (Auto) Lymph # Lymph # (Auto) Seg Neutrophils % Seg Neuts % (Manual) Lymphocytes % (Manual) Seg Neutrophils # Seg Neutrophils # Man Nucleated RBC % Lymphocytes # (Manual) Monocytes # (Manual) PT INR Heparin Anti-Xa Level POC ABG pO2 ABG pH POC ABG pCO2 ABG Hemoglobin ABG Oxyhemoglobin ABG pO2 ABG HCO3 ABG O2 Saturation ABG Base Excess ABG Potassium ABG Chloride ABG Glucose Oxyhemoglobin Sodium Potassium Chloride Carbon Dioxide BUN Creatinine Glucose POC Glucose 185 H 226 H 141 H Lactic Acid Calcium AST Phosphorus Total Protein Albumin C-Reactive Protein Arterial Blood Glucose Arterial Blood Ionized Calcium Urine WBC (Auto) 01/29/20 01/30/20 01/30/20 Unknown 03:24 04:00 WBC RBC Hgb 7.8 L Hct 23.5 L MCHC RDW Plt Count MCH Lymph % (Auto) Lymph # Lymph # (Auto) Seg Neutrophils % Seg Neuts % (Manual) Lymphocytes % (Manual) Seg Neutrophils # Seg Neutrophils # Man Nucleated RBC % Lymphocytes # (Manual) Monocytes # (Manual) PT INR Heparin Anti-Xa Level POC ABG pO2 ABG pH 7.485 H POC ABG pCO2 ABG Hemoglobin 6.7 L ABG Oxyhemoglobin ABG pO2 102.0 H ABG HCO3 ABG O2 Saturation ABG Base Excess ABG Potassium ABG Chloride ABG Glucose Oxyhemoglobin Sodium Potassium Chloride Carbon Dioxide BUN Creatinine Glucose POC Glucose Lactic Acid Calcium AST Phosphorus Total Protein Albumin C-Reactive Protein 14.80 H Arterial Blood Glucose Arterial Blood Ionized Calcium Urine WBC (Auto) 01/30/20 01/30/20 01/30/20 05:50 11:15 17:07 WBC RBC Hgb Hct MCHC RDW Plt Count MCH Lymph % (Auto) Lymph # Lymph # (Auto) Seg Neutrophils % Seg Neuts % (Manual) Lymphocytes % (Manual) Seg Neutrophils # Seg Neutrophils # Man Nucleated RBC % Lymphocytes # (Manual) Monocytes # (Manual) PT INR Heparin Anti-Xa Level POC ABG pO2 ABG pH POC ABG pCO2 ABG Hemoglobin ABG Oxyhemoglobin ABG pO2 ABG HCO3 ABG O2 Saturation ABG Base Excess ABG Potassium ABG Chloride ABG Glucose Oxyhemoglobin Sodium Potassium Chloride Carbon Dioxide BUN Creatinine Glucose POC Glucose 122 H 207 H 124 H Lactic Acid Calcium AST Phosphorus Total Protein Albumin C-Reactive Protein Arterial Blood Glucose Arterial Blood Ionized Calcium Urine WBC (Auto) 01/30/20 01/31/20 01/31/20 17:08 00:10 04:52 WBC RBC Hgb Hct MCHC RDW Plt Count MCH Lymph % (Auto) Lymph # Lymph # (Auto) Seg Neutrophils % Seg Neuts % (Manual) Lymphocytes % (Manual) Seg Neutrophils # Seg Neutrophils # Man Nucleated RBC % Lymphocytes # (Manual) Monocytes # (Manual) PT INR Heparin Anti-Xa Level POC ABG pO2 ABG pH 7.504 H 7.486 H POC ABG pCO2 ABG Hemoglobin 7.4 L 6.2 L ABG Oxyhemoglobin ABG pO2 169.2 H 121.7 H ABG HCO3 27.1 H ABG O2 Saturation 99.1 H ABG Base Excess 3.4 H ABG Potassium ABG Chloride ABG Glucose Oxyhemoglobin Sodium Potassium Chloride Carbon Dioxide BUN Creatinine Glucose POC Glucose 191 H Lactic Acid Calcium AST Phosphorus Total Protein Albumin C-Reactive Protein Arterial Blood Glucose Arterial Blood Ionized Calcium Urine WBC (Auto) 01/31/20 01/31/20 01/31/20 05:37 11:59 12:40 WBC RBC 2.41 L Hgb 7.5 L Hct 22.3 L MCHC RDW 22.2 H Plt Count MCH Lymph % (Auto) Lymph # Lymph # (Auto) Seg Neutrophils % Seg Neuts % (Manual) 94.0 H Lymphocytes % (Manual) 2.0 L Seg Neutrophils # Seg Neutrophils # Man 9.4 H Nucleated RBC % Lymphocytes # (Manual) 0.2 L Monocytes # (Manual) PT INR Heparin Anti-Xa Level POC ABG pO2 ABG pH POC ABG pCO2 ABG Hemoglobin ABG Oxyhemoglobin ABG pO2 ABG HCO3 ABG O2 Saturation ABG Base Excess ABG Potassium ABG Chloride ABG Glucose Oxyhemoglobin Sodium Potassium Chloride Carbon Dioxide BUN Creatinine Glucose POC Glucose 175 H 220 H Lactic Acid Calcium AST Phosphorus Total Protein Albumin C-Reactive Protein Arterial Blood Glucose Arterial Blood Ionized Calcium Urine WBC (Auto) 01/31/20 01/31/20 01/31/20 12:40 14:40 18:18 WBC RBC Hgb Hct MCHC RDW Plt Count MCH Lymph % (Auto) Lymph # Lymph # (Auto) Seg Neutrophils % Seg Neuts % (Manual) Lymphocytes % (Manual) Seg Neutrophils # Seg Neutrophils # Man Nucleated RBC % Lymphocytes # (Manual) Monocytes # (Manual) PT INR Heparin Anti-Xa Level POC ABG pO2 124.7 H ABG pH 7.542 H POC ABG pCO2 ABG Hemoglobin 7.8 L ABG Oxyhemoglobin ABG pO2 ABG HCO3 ABG O2 Saturation ABG Base Excess ABG Potassium ABG Chloride ABG Glucose Oxyhemoglobin Sodium 151 H Potassium 2.1 L* D Chloride 108.9 H Carbon Dioxide BUN 22 H Creatinine Glucose 194 H POC Glucose 181 H Lactic Acid Calcium 8.1 L AST Phosphorus Total Protein 4.8 L Albumin 2.3 L C-Reactive Protein Arterial Blood Glucose Arterial Blood Ionized Calcium Urine WBC (Auto) 02/01/20 02/01/20 02/01/20 00:11 03:14 04:32 WBC 11.9 H RBC 2.47 L Hgb 7.6 L Hct 22.8 L MCHC RDW 22.7 H Plt Count MCH Lymph % (Auto) Lymph # Lymph # (Auto) Seg Neutrophils % Seg Neuts % (Manual) 90.0 H Lymphocytes % (Manual) 5.0 L Seg Neutrophils # Seg Neutrophils # Man 10.7 H Nucleated RBC % Lymphocytes # (Manual) 0.6 L Monocytes # (Manual) PT INR Heparin Anti-Xa Level POC ABG pO2 ABG pH 7.564 H POC ABG pCO2 ABG Hemoglobin 7.6 L ABG Oxyhemoglobin ABG pO2 124.1 H ABG HCO3 29.6 H ABG O2 Saturation ABG Base Excess 7.0 H ABG Potassium ABG Chloride ABG Glucose Oxyhemoglobin Sodium Potassium Chloride Carbon Dioxide BUN Creatinine Glucose POC Glucose 190 H Lactic Acid Calcium AST Phosphorus Total Protein Albumin C-Reactive Protein Arterial Blood Glucose Arterial Blood Ionized Calcium Urine WBC (Auto) 02/01/20 02/01/20 02/01/20 04:32 05:28 11:56 WBC RBC Hgb Hct MCHC RDW Plt Count MCH Lymph % (Auto) Lymph # Lymph # (Auto) Seg Neutrophils % Seg Neuts % (Manual) Lymphocytes % (Manual) Seg Neutrophils # Seg Neutrophils # Man Nucleated RBC % Lymphocytes # (Manual) Monocytes # (Manual) PT INR Heparin Anti-Xa Level POC ABG pO2 ABG pH POC ABG pCO2 ABG Hemoglobin ABG Oxyhemoglobin ABG pO2 ABG HCO3 ABG O2 Saturation ABG Base Excess ABG Potassium ABG Chloride ABG Glucose Oxyhemoglobin Sodium 149 H Potassium 2.6 L* D Chloride Carbon Dioxide 33 H BUN 23 H Creatinine 0.5 L Glucose 174 H POC Glucose 187 H 195 H Lactic Acid Calcium 8.0 L AST Phosphorus 1.60 L Total Protein Albumin C-Reactive Protein Arterial Blood Glucose Arterial Blood Ionized Calcium Urine WBC (Auto) 02/01/20 02/01/20 02/02/20 18:15 23:35 04:33 WBC RBC Hgb Hct MCHC RDW Plt Count MCH Lymph % (Auto) Lymph # Lymph # (Auto) Seg Neutrophils % Seg Neuts % (Manual) Lymphocytes % (Manual) Seg Neutrophils # Seg Neutrophils # Man Nucleated RBC % Lymphocytes # (Manual) Monocytes # (Manual) PT INR Heparin Anti-Xa Level POC ABG pO2 ABG pH 7.549 H POC ABG pCO2 ABG Hemoglobin 9.8 L ABG Oxyhemoglobin ABG pO2 ABG HCO3 ABG O2 Saturation ABG Base Excess ABG Potassium ABG Chloride ABG Glucose Oxyhemoglobin Sodium Potassium Chloride Carbon Dioxide BUN Creatinine Glucose POC Glucose 226 H 252 H Lactic Acid Calcium AST Phosphorus Total Protein Albumin C-Reactive Protein Arterial Blood Glucose Arterial Blood Ionized Calcium Urine WBC (Auto) 02/02/20 02/02/20 02/02/20 05:25 05:25 05:40 WBC 15.5 H RBC 2.43 L Hgb 7.6 L Hct 22.9 L MCHC RDW 23.6 H Plt Count MCH Lymph % (Auto) Lymph # Lymph # (Auto) Seg Neutrophils % Seg Neuts % (Manual) 89.0 H Lymphocytes % (Manual) 3.0 L Seg Neutrophils # Seg Neutrophils # Man 13.8 H Nucleated RBC % Lymphocytes # (Manual) 0.5 L Monocytes # (Manual) 0.9 H PT INR Heparin Anti-Xa Level POC ABG pO2 ABG pH POC ABG pCO2 ABG Hemoglobin ABG Oxyhemoglobin ABG pO2 ABG HCO3 ABG O2 Saturation ABG Base Excess ABG Potassium ABG Chloride ABG Glucose Oxyhemoglobin Sodium Potassium 2.6 L* Chloride Carbon Dioxide 33 H BUN 26 H Creatinine Glucose 175 H POC Glucose 181 H Lactic Acid Calcium 7.9 L AST Phosphorus Total Protein Albumin C-Reactive Protein Arterial Blood Glucose Arterial Blood Ionized Calcium Urine WBC (Auto) 02/02/20 02/02/20 02/02/20 11:55 14:45 17:18 WBC RBC Hgb Hct MCHC RDW Plt Count MCH Lymph % (Auto) Lymph # Lymph # (Auto) Seg Neutrophils % Seg Neuts % (Manual) Lymphocytes % (Manual) Seg Neutrophils # Seg Neutrophils # Man Nucleated RBC % Lymphocytes # (Manual) Monocytes # (Manual) PT INR Heparin Anti-Xa Level POC ABG pO2 ABG pH 7.56 H POC ABG pCO2 ABG Hemoglobin 7.6 L ABG Oxyhemoglobin ABG pO2 ABG HCO3 ABG O2 Saturation ABG Base Excess ABG Potassium ABG Chloride ABG Glucose Oxyhemoglobin Sodium Potassium Chloride Carbon Dioxide BUN Creatinine Glucose POC Glucose 226 H 227 H Lactic Acid Calcium AST Phosphorus Total Protein Albumin C-Reactive Protein Arterial Blood Glucose Arterial Blood Ionized Calcium Urine WBC (Auto) 02/02/20 02/03/20 02/03/20 20:54 00:02 05:14 WBC 18.7 H RBC 2.45 L Hgb 7.6 L Hct 23.2 L MCHC RDW 23.5 H Plt Count MCH Lymph % (Auto) Lymph # Lymph # (Auto) Seg Neutrophils % Seg Neuts % (Manual) 94.0 H Lymphocytes % (Manual) 3.0 L Seg Neutrophils # Seg Neutrophils # Man 17.6 H Nucleated RBC % Lymphocytes # (Manual) 0.6 L Monocytes # (Manual) PT INR Heparin Anti-Xa Level POC ABG pO2 ABG pH POC ABG pCO2 ABG Hemoglobin ABG Oxyhemoglobin ABG pO2 ABG HCO3 ABG O2 Saturation ABG Base Excess ABG Potassium ABG Chloride ABG Glucose Oxyhemoglobin Sodium Potassium 3.2 L D Chloride Carbon Dioxide BUN Creatinine Glucose POC Glucose 204 H Lactic Acid Calcium AST Phosphorus Total Protein Albumin C-Reactive Protein Arterial Blood Glucose Arterial Blood Ionized Calcium Urine WBC (Auto) 02/03/20 02/03/20 02/03/20 05:14 05:14 05:20 WBC RBC Hgb Hct MCHC RDW Plt Count MCH Lymph % (Auto) Lymph # Lymph # (Auto) Seg Neutrophils % Seg Neuts % (Manual) Lymphocytes % (Manual) Seg Neutrophils # Seg Neutrophils # Man Nucleated RBC % Lymphocytes # (Manual) Monocytes # (Manual) PT INR Heparin Anti-Xa Level POC ABG pO2 ABG pH POC ABG pCO2 ABG Hemoglobin ABG Oxyhemoglobin ABG pO2 ABG HCO3 ABG O2 Saturation ABG Base Excess ABG Potassium ABG Chloride ABG Glucose Oxyhemoglobin Sodium Potassium 3.1 L Chloride Carbon Dioxide 33 H BUN 29 H Creatinine 0.5 L Glucose 160 H POC Glucose 146 H Lactic Acid Calcium 7.9 L AST Phosphorus 2.30 L Total Protein 4.8 L Albumin 2.4 L C-Reactive Protein Arterial Blood Glucose Arterial Blood Ionized Calcium Urine WBC (Auto) 02/03/20 02/03/20 02/03/20 12:35 18:14 23:26 WBC RBC Hgb Hct MCHC RDW Plt Count MCH Lymph % (Auto) Lymph # Lymph # (Auto) Seg Neutrophils % Seg Neuts % (Manual) Lymphocytes % (Manual) Seg Neutrophils # Seg Neutrophils # Man Nucleated RBC % Lymphocytes # (Manual) Monocytes # (Manual) PT INR Heparin Anti-Xa Level POC ABG pO2 ABG pH POC ABG pCO2 ABG Hemoglobin ABG Oxyhemoglobin ABG pO2 ABG HCO3 ABG O2 Saturation ABG Base Excess ABG Potassium ABG Chloride ABG Glucose Oxyhemoglobin Sodium Potassium Chloride Carbon Dioxide BUN Creatinine Glucose POC Glucose 219 H 248 H 173 H Lactic Acid Calcium AST Phosphorus Total Protein Albumin C-Reactive Protein Arterial Blood Glucose Arterial Blood Ionized Calcium Urine WBC (Auto) 02/04/20 02/04/20 02/04/20 05:34 05:36 06:51 WBC RBC Hgb Hct MCHC RDW Plt Count MCH Lymph % (Auto) Lymph # Lymph # (Auto) Seg Neutrophils % Seg Neuts % (Manual) Lymphocytes % (Manual) Seg Neutrophils # Seg Neutrophils # Man Nucleated RBC % Lymphocytes # (Manual) Monocytes # (Manual) PT INR Heparin Anti-Xa Level POC ABG pO2 ABG pH POC ABG pCO2 ABG Hemoglobin ABG Oxyhemoglobin ABG pO2 ABG HCO3 ABG O2 Saturation ABG Base Excess ABG Potassium ABG Chloride ABG Glucose Oxyhemoglobin Sodium Potassium Chloride Carbon Dioxide BUN Creatinine Glucose POC Glucose 56 L 64 L 127 H Lactic Acid Calcium AST Phosphorus Total Protein Albumin C-Reactive Protein Arterial Blood Glucose Arterial Blood Ionized Calcium Urine WBC (Auto) 02/04/20 02/04/20 02/04/20 11:57 13:42 13:53 WBC 19.2 H RBC 2.48 L Hgb 7.8 L Hct 23.5 L MCHC RDW 24.2 H Plt Count MCH Lymph % (Auto) Lymph # Lymph # (Auto) Seg Neutrophils % Seg Neuts % (Manual) 97.0 H Lymphocytes % (Manual) 2.0 L Seg Neutrophils # Seg Neutrophils # Man 18.6 H Nucleated RBC % Lymphocytes # (Manual) 0.4 L Monocytes # (Manual) PT INR Heparin Anti-Xa Level POC ABG pO2 118.2 H ABG pH 7.525 H POC ABG pCO2 ABG Hemoglobin 8.7 L ABG Oxyhemoglobin ABG pO2 ABG HCO3 ABG O2 Saturation ABG Base Excess ABG Potassium 2.8 L ABG Chloride ABG Glucose 185 H Oxyhemoglobin Sodium Potassium Chloride Carbon Dioxide BUN Creatinine Glucose POC Glucose 224 H Lactic Acid Calcium AST Phosphorus Total Protein Albumin C-Reactive Protein Arterial Blood Glucose 185 H Arterial Blood Ionized Calcium 4.5 L Urine WBC (Auto) 02/04/20 02/04/20 02/04/20 13:53 18:15 23:35 WBC RBC Hgb Hct MCHC RDW Plt Count MCH Lymph % (Auto) Lymph # Lymph # (Auto) Seg Neutrophils % Seg Neuts % (Manual) Lymphocytes % (Manual) Seg Neutrophils # Seg Neutrophils # Man Nucleated RBC % Lymphocytes # (Manual) Monocytes # (Manual) PT INR Heparin Anti-Xa Level POC ABG pO2 ABG pH POC ABG pCO2 ABG Hemoglobin ABG Oxyhemoglobin ABG pO2 ABG HCO3 ABG O2 Saturation ABG Base Excess ABG Potassium ABG Chloride ABG Glucose Oxyhemoglobin Sodium 147 H Potassium 2.8 L* Chloride Carbon Dioxide 38 H BUN 33 H Creatinine 0.5 L Glucose 202 H POC Glucose 215 H 197 H Lactic Acid Calcium AST Phosphorus Total Protein Albumin C-Reactive Protein Arterial Blood Glucose Arterial Blood Ionized Calcium Urine WBC (Auto) 02/05/20 02/05/20 02/05/20 01:03 04:00 04:00 WBC 26.7 H RBC 2.59 L Hgb 8.1 L Hct 24.6 L MCHC RDW 24.1 H Plt Count MCH Lymph % (Auto) 1.6 L Lymph # Lymph # (Auto) 0.4 L Seg Neutrophils % Seg Neuts % (Manual) Lymphocytes % (Manual) Seg Neutrophils # 25.9 H Seg Neutrophils # Man Nucleated RBC % Lymphocytes # (Manual) Monocytes # (Manual) PT INR Heparin Anti-Xa Level POC ABG pO2 ABG pH POC ABG pCO2 ABG Hemoglobin 7.1 L ABG Oxyhemoglobin ABG pO2 50.7 L ABG HCO3 29.6 H ABG O2 Saturation 82.7 L ABG Base Excess 4.8 H ABG Potassium ABG Chloride ABG Glucose Oxyhemoglobin 81.0 L Sodium 146 H Potassium Chloride Carbon Dioxide 32 H BUN 35 H Creatinine 0.5 L Glucose 226 H POC Glucose Lactic Acid Calcium AST Phosphorus Total Protein 5.1 L Albumin 2.2 L C-Reactive Protein Arterial Blood Glucose Arterial Blood Ionized Calcium Urine WBC (Auto) 02/05/20 02/05/20 02/06/20 05:32 17:56 00:19 WBC RBC Hgb Hct MCHC RDW Plt Count MCH Lymph % (Auto) Lymph # Lymph # (Auto) Seg Neutrophils % Seg Neuts % (Manual) Lymphocytes % (Manual) Seg Neutrophils # Seg Neutrophils # Man Nucleated RBC % Lymphocytes # (Manual) Monocytes # (Manual) PT INR Heparin Anti-Xa Level POC ABG pO2 ABG pH POC ABG pCO2 ABG Hemoglobin ABG Oxyhemoglobin ABG pO2 ABG HCO3 ABG O2 Saturation ABG Base Excess ABG Potassium ABG Chloride ABG Glucose Oxyhemoglobin Sodium Potassium Chloride Carbon Dioxide BUN Creatinine Glucose POC Glucose 239 H 175 H 309 H Lactic Acid Calcium AST Phosphorus Total Protein Albumin C-Reactive Protein Arterial Blood Glucose Arterial Blood Ionized Calcium Urine WBC (Auto) 02/06/20 02/06/20 02/06/20 04:26 04:27 05:11 WBC RBC Hgb Hct MCHC RDW Plt Count MCH Lymph % (Auto) Lymph # Lymph # (Auto) Seg Neutrophils % Seg Neuts % (Manual) Lymphocytes % (Manual) Seg Neutrophils # Seg Neutrophils # Man Nucleated RBC % Lymphocytes # (Manual) Monocytes # (Manual) PT INR Heparin Anti-Xa Level POC ABG pO2 175.3 H 157.2 H ABG pH 7.502 H 7.551 H POC ABG pCO2 ABG Hemoglobin 10.8 L 7.3 L ABG Oxyhemoglobin 98.3 H ABG pO2 ABG HCO3 ABG O2 Saturation ABG Base Excess ABG Potassium 3.3 L ABG Chloride 109.0 H ABG Glucose 148 H Oxyhemoglobin Sodium 148 H Potassium 3.0 L Chloride 107.3 H Carbon Dioxide 33 H BUN 33 H Creatinine 0.5 L Glucose 283 H POC Glucose Lactic Acid Calcium 7.9 L AST Phosphorus Total Protein 3.6 L D Albumin 1.2 L C-Reactive Protein Arterial Blood Glucose 148 H Arterial Blood Ionized Calcium Urine WBC (Auto) 02/06/20 02/06/20 02/06/20 05:40 08:45 11:52 WBC 16.3 H RBC 2.12 L Hgb 6.6 L Hct 20.3 L MCHC RDW 24.4 H Plt Count MCH Lymph % (Auto) Lymph # Lymph # (Auto) Seg Neutrophils % Seg Neuts % (Manual) 98.0 H Lymphocytes % (Manual) 1.0 L Seg Neutrophils # Seg Neutrophils # Man 16.0 H Nucleated RBC % Lymphocytes # (Manual) 0.2 L Monocytes # (Manual) PT INR Heparin Anti-Xa Level POC ABG pO2 ABG pH POC ABG pCO2 ABG Hemoglobin ABG Oxyhemoglobin ABG pO2 ABG HCO3 ABG O2 Saturation ABG Base Excess ABG Potassium ABG Chloride ABG Glucose Oxyhemoglobin Sodium Potassium Chloride Carbon Dioxide BUN Creatinine Glucose POC Glucose 347 H 132 H Lactic Acid Calcium AST Phosphorus Total Protein Albumin C-Reactive Protein Arterial Blood Glucose Arterial Blood Ionized Calcium Urine WBC (Auto) 02/06/20 02/07/20 02/07/20 18:26 00:08 05:41 WBC RBC Hgb Hct MCHC RDW Plt Count MCH Lymph % (Auto) Lymph # Lymph # (Auto) Seg Neutrophils % Seg Neuts % (Manual) Lymphocytes % (Manual) Seg Neutrophils # Seg Neutrophils # Man Nucleated RBC % Lymphocytes # (Manual) Monocytes # (Manual) PT INR Heparin Anti-Xa Level POC ABG pO2 ABG pH POC ABG pCO2 ABG Hemoglobin ABG Oxyhemoglobin ABG pO2 ABG HCO3 ABG O2 Saturation ABG Base Excess ABG Potassium ABG Chloride ABG Glucose Oxyhemoglobin Sodium Potassium Chloride Carbon Dioxide BUN Creatinine Glucose POC Glucose 114 H 111 H 164 H Lactic Acid Calcium AST Phosphorus Total Protein Albumin C-Reactive Protein Arterial Blood Glucose Arterial Blood Ionized Calcium Urine WBC (Auto) 02/07/20 02/07/20 02/07/20 11:49 17:56 23:27 WBC RBC Hgb Hct MCHC RDW Plt Count MCH Lymph % (Auto) Lymph # Lymph # (Auto) Seg Neutrophils % Seg Neuts % (Manual) Lymphocytes % (Manual) Seg Neutrophils # Seg Neutrophils # Man Nucleated RBC % Lymphocytes # (Manual) Monocytes # (Manual) PT INR Heparin Anti-Xa Level POC ABG pO2 ABG pH POC ABG pCO2 ABG Hemoglobin ABG Oxyhemoglobin ABG pO2 ABG HCO3 ABG O2 Saturation ABG Base Excess ABG Potassium ABG Chloride ABG Glucose Oxyhemoglobin Sodium Potassium Chloride Carbon Dioxide BUN Creatinine Glucose POC Glucose 146 H 140 H 164 H Lactic Acid Calcium AST Phosphorus Total Protein Albumin C-Reactive Protein Arterial Blood Glucose Arterial Blood Ionized Calcium Urine WBC (Auto) 02/08/20 02/08/20 02/08/20 03:55 04:46 04:46 WBC RBC 2.30 L Hgb 7.3 L Hct 22.0 L MCHC RDW 23.9 H Plt Count MCH Lymph % (Auto) 8.5 L Lymph # Lymph # (Auto) 0.8 L Seg Neutrophils % 87.6 H Seg Neuts % (Manual) Lymphocytes % (Manual) Seg Neutrophils # 8.7 H Seg Neutrophils # Man Nucleated RBC % Lymphocytes # (Manual) Monocytes # (Manual) PT INR Heparin Anti-Xa Level POC ABG pO2 112.8 H ABG pH 7.511 H POC ABG pCO2 51.2 H ABG Hemoglobin 7.8 L ABG Oxyhemoglobin ABG pO2 ABG HCO3 ABG O2 Saturation ABG Base Excess ABG Potassium ABG Chloride ABG Glucose Oxyhemoglobin Sodium Potassium 3.1 L Chloride Carbon Dioxide 31 H BUN 29 H Creatinine 0.3 L Glucose 108 H POC Glucose Lactic Acid Calcium AST Phosphorus Total Protein Albumin C-Reactive Protein Arterial Blood Glucose Arterial Blood Ionized Calcium Urine WBC (Auto) 02/08/20 02/08/20 02/08/20 05:31 10:15 12:10 WBC RBC Hgb Hct MCHC RDW Plt Count MCH Lymph % (Auto) Lymph # Lymph # (Auto) Seg Neutrophils % Seg Neuts % (Manual) Lymphocytes % (Manual) Seg Neutrophils # Seg Neutrophils # Man Nucleated RBC % Lymphocytes # (Manual) Monocytes # (Manual) PT INR Heparin Anti-Xa Level POC ABG pO2 ABG pH POC ABG pCO2 ABG Hemoglobin ABG Oxyhemoglobin ABG pO2 ABG HCO3 ABG O2 Saturation ABG Base Excess ABG Potassium ABG Chloride ABG Glucose Oxyhemoglobin Sodium Potassium Chloride Carbon Dioxide BUN Creatinine Glucose POC Glucose 117 H 164 H 170 H Lactic Acid Calcium AST Phosphorus Total Protein Albumin C-Reactive Protein Arterial Blood Glucose Arterial Blood Ionized Calcium Urine WBC (Auto) 02/08/20 02/08/20 02/09/20 12:23 23:50 03:04 WBC RBC Hgb Hct MCHC RDW Plt Count MCH Lymph % (Auto) Lymph # Lymph # (Auto) Seg Neutrophils % Seg Neuts % (Manual) Lymphocytes % (Manual) Seg Neutrophils # Seg Neutrophils # Man Nucleated RBC % Lymphocytes # (Manual) Monocytes # (Manual) PT INR Heparin Anti-Xa Level POC ABG pO2 ABG pH 7.501 H POC ABG pCO2 ABG Hemoglobin 7.5 L ABG Oxyhemoglobin ABG pO2 ABG HCO3 ABG O2 Saturation ABG Base Excess ABG Potassium ABG Chloride ABG Glucose 143 H Oxyhemoglobin Sodium Potassium Chloride Carbon Dioxide BUN Creatinine Glucose POC Glucose 164 H 126 H Lactic Acid Calcium AST Phosphorus Total Protein Albumin C-Reactive Protein Arterial Blood Glucose 143 H Arterial Blood Ionized Calcium Urine WBC (Auto) 02/09/20 02/09/20 02/09/20 05:57 08:00 12:39 WBC RBC Hgb Hct MCHC RDW Plt Count MCH Lymph % (Auto) Lymph # Lymph # (Auto) Seg Neutrophils % Seg Neuts % (Manual) Lymphocytes % (Manual) Seg Neutrophils # Seg Neutrophils # Man Nucleated RBC % Lymphocytes # (Manual) Monocytes # (Manual) PT INR Heparin Anti-Xa Level POC ABG pO2 ABG pH POC ABG pCO2 ABG Hemoglobin ABG Oxyhemoglobin ABG pO2 ABG HCO3 ABG O2 Saturation ABG Base Excess ABG Potassium ABG Chloride ABG Glucose Oxyhemoglobin Sodium Potassium 3.3 L Chloride Carbon Dioxide 34 H BUN 27 H Creatinine 0.4 L Glucose 127 H POC Glucose 160 H 154 H Lactic Acid Calcium 8.2 L AST Phosphorus Total Protein Albumin C-Reactive Protein Arterial Blood Glucose Arterial Blood Ionized Calcium Urine WBC (Auto) 02/09/20 02/09/20 02/09/20 18:17 23:43 Unknown WBC RBC 2.15 L Hgb 7.0 L Hct 20.8 L MCHC RDW 23.3 H Plt Count MCH 33 H Lymph % (Auto) Lymph # Lymph # (Auto) Seg Neutrophils % Seg Neuts % (Manual) Lymphocytes % (Manual) Seg Neutrophils # Seg Neutrophils # Man Nucleated RBC % Lymphocytes # (Manual) Monocytes # (Manual) PT INR Heparin Anti-Xa Level POC ABG pO2 ABG pH POC ABG pCO2 ABG Hemoglobin ABG Oxyhemoglobin ABG pO2 ABG HCO3 ABG O2 Saturation ABG Base Excess ABG Potassium ABG Chloride ABG Glucose Oxyhemoglobin Sodium Potassium Chloride Carbon Dioxide BUN Creatinine Glucose POC Glucose 152 H 177 H Lactic Acid Calcium AST Phosphorus Total Protein Albumin C-Reactive Protein Arterial Blood Glucose Arterial Blood Ionized Calcium Urine WBC (Auto) 02/10/20 02/10/20 02/10/20 04:38 05:24 11:44 WBC RBC Hgb Hct MCHC RDW Plt Count MCH Lymph % (Auto) Lymph # Lymph # (Auto) Seg Neutrophils % Seg Neuts % (Manual) Lymphocytes % (Manual) Seg Neutrophils # Seg Neutrophils # Man Nucleated RBC % Lymphocytes # (Manual) Monocytes # (Manual) PT INR Heparin Anti-Xa Level POC ABG pO2 ABG pH 7.502 H POC ABG pCO2 ABG Hemoglobin 6.2 L ABG Oxyhemoglobin ABG pO2 136.0 H ABG HCO3 29.3 H ABG O2 Saturation ABG Base Excess 5.7 H ABG Potassium ABG Chloride ABG Glucose Oxyhemoglobin Sodium Potassium Chloride Carbon Dioxide BUN Creatinine Glucose POC Glucose 113 H 176 H Lactic Acid Calcium AST Phosphorus Total Protein Albumin C-Reactive Protein Arterial Blood Glucose Arterial Blood Ionized Calcium Urine WBC (Auto) Allied health notes reviewed: RT
--- NOTE | 2020-02-10 13:08 | Progress Note ---
Assessment and Plan Cultures: Blood cultures 01/08/2020 MDR Proteus mirabilis. Blood culture 01/12/2020 no growth. Urine culture 01/08/2020 no growth. Tissue culture 01/16/2020 MDR Proteus and enterococcus BAL culture 01/28/2020: normal resp shoshana tracheal aspirate 02/05/2020: normal resp shoshana A/P: 69 years old female with history of diabetes mellitus, pulmonary embolism, dementia, admitted on 01/08/2020 due to altered mental status, lethargy and hypotension. Patient was evaluated by her home health nurse who found her less active and hypotensive: #Septic shock: off pressors. #s/p PEA arrest night of 01/28/2020 and on 02/05/2020 #Proteus bacteremia: Likely from sacral decubitus. Continues on Zosyn. #Unstageable sacral decubitus, infected: Status post or debridement on 01/16/2020, tissue cultures growing MDR Proteus and enterococcus. OR findings extensive fascial necrosis. Dr. Roberts had discussed with Dr Vo likely osteomyelitis. End date for Zosyn is 6 weeks till 02/27/2020. Prognosis however is poor. #UTI #Acute hypoxemic respiratory failure: remains on the vent. Recs:- -continue Zosyn 4.5 g IV every 8 hours, end date is 02/27/2020 -Offloading, wound care and wound VAC per surgery -Prognosis remains poor, planned for Trach/PEG Braxton Danielle MD FACP Infectious Disease Nurse Orthopaedic ([facility]) Subjective Date of service: 02/10/20 Principal diagnosis: Septic Shock; S/P Cardiac Arrest; Ac. hypoxemic resp failure; UTI Interval history: Remains on the vent. No fever. Doesn't respond, does open eyes when called. Objective - Exam Narrative Exam: Physical Exam: Constitutional: opens eyes when called, intubated, on the vent Head, Ears, Nose: Normocephalic, atraumatic. External ears, nose normal Eyes: Conjunctivae/corneas clear. No icterus. No ptosis. Neck: intubated Oral: intubated Cardiovascular: S1, S2 normal. Respiratory: AE fair b/l GI: Soft, non-tender, bowel sounds + Musculoskeletal: contractures +, edematous extremities. Skin: sacral wound with wound VAC Hem/Lymphatic: No palpable cervical or supraclavicular nodes. No lymphangitis Psych: no agitation Neurological: opens eyes when called, intubated, on the vent - Constitutional Vitals: Vital Signs Temp Pulse Resp BP Pulse Ox 98.6 F 100 H 24 115/62 100 02/10/20 08:00 02/10/20 12:18 02/10/20 12:18 02/10/20 12:18 02/10/20 12:18 Temperature -Last 24 Hours Temperature 98.6 F Temperature 97.8 F Temperature 98.2 F Temperature 98.3 F Temperature 98.6 F - Labs CBC & Chem 7: 02/09/20 Unknown 02/09/20 08:00 Labs: Abnormal lab results 02/06/20 02/09/20 02/09/20 Range/Units 04:26 18:17 23:43 ABG pH 7.502 H (7.320-7.450) POC ABG pO2 175.3 H (83-108) mmHg ABG pO2 (80.0-90.0) mm Hg ABG HCO3 (20.0-26.0) mmol/L ABG Base Excess (-2.0-3.0) mmol/L ABG Hemoglobin 10.8 L (12.0-17.5) ABG Potassium 3.3 L (3.40-4.50) mmol/L ABG Chloride 109.0 H (98-107) mmol/L ABG Glucose 148 H (65-95) mg/dL POC Glucose 152 H 177 H (70-105) Arterial Blood Glucose 148 H (65-95) mg/dL 02/10/20 02/10/20 02/10/20 Range/Units 04:38 05:24 11:44 ABG pH 7.502 H (7.320-7.450) POC ABG pO2 (83-108) mmHg ABG pO2 136.0 H (80.0-90.0) mm Hg ABG HCO3 29.3 H (20.0-26.0) mmol/L ABG Base Excess 5.7 H (-2.0-3.0) mmol/L ABG Hemoglobin 6.2 L (12.0-17.5) ABG Potassium (3.40-4.50) mmol/L ABG Chloride (98-107) mmol/L ABG Glucose (65-95) mg/dL POC Glucose 113 H 176 H (70-105) Arterial Blood Glucose (65-95) mg/dL
[2020-02-10] MEDS: DEXTROSE 50% IN WATER (25GM) 50 ML SYRINGE IV PRN (17:18)
[2020-02-10] MEDS: DONEPEZIL 10 MG TAB PO SCH (21:27)
[2020-02-10] MEDS: MIRTAZAPINE 15 MG TAB PO SCH (21:28)
[2020-02-10] MEDS: traZODone 50 MG TAB PO SCH (21:28)
[2020-02-11] MEDS: INSULIN REGULAR, HUMAN 100 UNIT/ML 3ML VIAL SUB-Q SCH ×4 (00:24→18:20)
[2020-02-11 04:53] LABS: Hematocrit 20.6 % (30.3-42.9); Hemoglobin 6.9 gm/dl (10.1-14.3); Mean Corpuscular HGB Conc 34 % (30-34); Mean Corpuscular Volume 97 fl (79-97); Platelet Count 319 K/mm3 (140-440); Red Blood Count 2.12 M/mm3 (3.65-5.03)
[2020-02-11 04:54] LABS: Red Cell Distribution Width 23.4 % (13.2-15.2)
[2020-02-11 05:05] LABS: Blood Urea Nitrogen 24 mg/dL (7-17); Hemolysis Index 2
[2020-02-11 05:07] LABS: Eosinophils # (Auto) 0.1 K/mm3 (0.0-0.4); Eosinophils % (Auto) 0.7 % (0.0-4.3); Monocytes # (Auto) 0.4 K/mm3 (0.0-0.8); Monocytes % (Auto) 4.2 % (0.0-7.3)
[2020-02-11] MEDS: PIPERACIL/TAZOBACTA 4.5/NS 100 4.5 GM/100 ML VIAL IV SCH ×3 (05:09→21:39)
[2020-02-11 05:23] LABS: BUN/Creatinine Ratio 60
[2020-02-11 06:13] LABS: Anisocytosis 2+; Basophils % (Manual) 0 % (0.0-1.8); Total Cells Counted 100
[2020-02-11 06:14] LABS: Macrocytosis Few; Platelet Estimate Consistent w Auto; Target Cells Few
[2020-02-11] MEDS ORDERED: SODIUM CHLORIDE 0.9% 500 ML 500 ML IV NR ×2 (07:56→11:14)
--- NOTE | 2020-02-11 08:03 | Progress Note ---
Assessment and Plan Assessment and plan: --Acute hypoxic respiratory failure, status post cardiac arrest status post extubation 02/02/2020 but had to be reintubated on 02/04 On mechanical ventilation, unable to wean/vent dependent Surgery evaluated, for possible tracheostomy, pending COVID test Patient is placed n.p.o. --Shock/ septic shock Monitor off Levophed, supportive care Etiology secondary to infected sacral decubitus ulcer and UTI --Proteus bacteremia: Due to sacral decubitus Long-term Zosyn per ID stop date 02/27/2020[total 6 weeks] --Hypokalemia; resolved Monitor levels and replenish as needed -- Hypernatremia;Free water flushes Monitor levels, adjust management as needed -- Uncontrolled diabetes mellitus; Blood sugars well controlled Accu-Chek sliding scale coverage long-acting insulin as needed DM management with SSI, TF --s/p PEA arrest night of 01/28/2020 and 02/05/2020 s/p CPR per ACLS protocol --Anoxic/hypoxic brain injury[status post PEA cardiac arrest] -- Hydropneumothorax, not POA Patient developed hydropneumothorax on 01/15. Surgery evaluated s/p chest tube placed on 01/15. Improved, s/p chest tube removed 01/22, extubated 02/02/2020 Patient is using nasal cannula oxygen/BiPAP and Ventimask as needed -- large Left pleural effusion 01/25 Continue supportive care, pulmonary following --Unstageable sacral decubitus ulcer, infected/POA s/p wound debridement on 01/15. Wound vac in place ID recommend zosyn 4.5 g IV q8h total 6 weeks stop date 02/27/2020 -- UTI (urinary tract infection)Completed antibiotics --h/o Bilateral pulmonary embolism Had pulmonary embolism 7 months ago. CTA chest and LE doppler showed no acute PE or DVT eliquis now stopped -- Dementia: Continue donepezil --Severe protein-calorie malnutrition She is not eating well and is getting feeds through the NG tube. Discussed with - this problem has been chronic agreed for PEG PEG placed 01/13. Now on tube feeds --DVT prophylaxis; SCDs The high probability of a clinically significant, sudden or life threatening deterioration of the [Respiratory, RENAL MEDICINE PHYSICIAN, CVs] system(s) required my full and direct attention, intervention and personal management. The aggregate critical care time was [32] minutes. This time is in addition to time spent performing reported procedures but includes the following: [x] Data Review and interpretation [x] Patient assessment and monitoring of vital signs [x] Documentation [x] Medication orders and management Patient is critically ill, multiple episodes of cardiac arrest Multiple episodes of respiratory arrest requiring mechanical ventilation Very poor prognosis, eco industrial development consultant recommendations noted and appreciated 02/07/2020. Patient currently with PSV/CPAP FiO2 50%, PEEP of 6 and pressure support of 10. Continue PSV trials as tolerated and wean per pulmonary. Recall ID consultation. 02/08/2020. Patient with Proteus bacteremia likely from sacral decubitus. Continue Zosyn 4.5 g IV every 8 hours until stop date of 02/26. Patient still on mechanical ventilation AC mode rate 12, tidal volume 350, FiO2 30% and PEEP of 6. Poor prognosis. Consider hospice. Continue scopolamine for secretion control. Continue pressors to maintain MAP > 65; currently off. 02/09/2020. Continue Zosyn 4.5 g IV every 8 hours for Proteus bacteremia with end date of 02/27/2020. Continue wound care/wound VAC per surgery. Patient still on mechanical ventilation AC mode rate 12, tidal volume 350, FiO2 30% and PEEP of 6. Poor prognosis. Consider hospice. Continue scopolamine for secretion control. Currently off pressors. 02/09; evaluated by surgery, planning tracheostomy pending COVID test 02/10; possible tracheostomy today pending COVID test, surgery following History Interval history: I have seen and examined the patient at the bedside in ICU Patient is awaiting tracheostomy evaluated by surgery Patient has mild anemia, may need 1 unit of PRBC transfusion However nurse reports that patient does not take blood products Check with the family transfuse if agreeable Patient remains intubated on ventilatory support Hospitalist Physical - Constitutional Vitals: Temp Pulse Resp BP Pulse Ox 97.9 F 106 H 24 124/70 100 02/11/20 04:00 02/11/20 07:45 02/11/20 07:45 02/11/20 07:45 02/11/20 07:45 General appearance: Present: mild distress, well-nourished, other (Intubated on vent) - EENT Eyes: Present: PERRL, EOM intact - Neck Neck: Present: supple, normal ROM - Respiratory Respiratory effort: normal Respiratory: bilateral: diminished, negative: rales, rhonchi, wheezing - Cardiovascular Rhythm: regular Heart Sounds: Present: S1 & S2 - Extremities Extremities: no ischemia Extremity abnormal: edema - Abdominal General gastrointestinal: soft, non-tender, non-distended, normal bowel sounds, other (PEG in place) - Integumentary Integumentary: Present: clear, warm - Psychiatric Psychiatric: other (Intubated on vent) - Neurologic Neurologic: other (Intubated on vent) Results - Labs CBC & Chem 7: 02/11/20 04:12 02/11/20 04:12 Labs: Laboratory Last Values WBC 9.1 K/mm3 (4.5-11.0) 02/11/20 04:12 RBC 2.12 M/mm3 (3.65-5.03) L 02/11/20 04:12 Hgb 6.9 gm/dl (10.1-14.3) L 02/11/20 04:12 Hct 20.6 % (30.3-42.9) L 02/11/20 04:12 MCV 97 fl (79-97) 02/11/20 04:12 MCH 33 pg (28-32) H 02/11/20 04:12 MCHC 34 % (30-34) 02/11/20 04:12 RDW 23.4 % (13.2-15.2) H 02/11/20 04:12 Plt Count 319 K/mm3 (140-440) 02/11/20 04:12 Lymph % (Auto) 8.5 % (13.4-35.0) L 02/08/20 04:46 [place] % (Auto) 4.2 % (0.0-7.3) 02/11/20 04:12 Eos % (Auto) 0.7 % (0.0-4.3) 02/11/20 04:12 Baso % (Auto) 0.2 % (0.0-1.8) 02/08/20 04:46 Lymph # (Auto) 0.8 K/mm3 (1.2-5.4) L 02/08/20 04:46 [place] # (Auto) 0.4 K/mm3 (0.0-0.8) 02/11/20 04:12 Eos # (Auto) 0.1 K/mm3 (0.0-0.4) 02/11/20 04:12 Baso # (Auto) 0.0 K/mm3 (0.0-0.1) 02/11/20 04:12 Add Manual Diff Complete 02/11/20 04:12 Total Counted 100 02/11/20 04:12 Seg Neutrophils % 84.7 % (40.0-70.0) H 02/11/20 04:12 Seg Neuts % (Manual) 83.0 % (40.0-70.0) H 02/11/20 04:12 Band Neutrophils % 0 % 02/11/20 04:12 Lymphocytes % (Manual) 11.0 % (13.4-35.0) L 02/11/20 04:12 Reactive Lymphs % (Man) 0 % 02/11/20 04:12 Monocytes % (Manual) 5.0 % (0.0-7.3) 02/11/20 04:12 Eosinophils % (Manual) 1.0 % (0.0-4.3) 02/11/20 04:12 Basophils % (Manual) 0 % (0.0-1.8) 02/11/20 04:12 Metamyelocytes % 0 % 02/11/20 04:12 Myelocytes % 0 % 02/11/20 04:12 Promyelocytes % 0 % 02/11/20 04:12 Blast Cells % 0 % 02/11/20 04:12 Nucleated RBC % Not Reportable 02/11/20 04:12 Seg Neutrophils # 7.7 K/mm3 (1.8-7.7) 02/11/20 04:12 Seg Neutrophils # Man 7.6 K/mm3 (1.8-7.7) 02/11/20 04:12 Band Neutrophils # 0.0 K/mm3 02/11/20 04:12 Lymphocytes # (Manual) 1.0 K/mm3 (1.2-5.4) L 02/11/20 04:12 Abs React Lymphs (Man) 0.0 K/mm3 02/11/20 04:12 Monocytes # (Manual) 0.5 K/mm3 (0.0-0.8) 02/11/20 04:12 Eosinophils # (Manual) 0.1 K/mm3 (0.0-0.4) 02/11/20 04:12 Basophils # (Manual) 0.0 K/mm3 (0.0-0.1) 02/11/20 04:12 Metamyelocytes # 0.0 K/mm3 02/11/20 04:12 Myelocytes # 0.0 K/mm3 02/11/20 04:12 Promyelocytes # 0.0 K/mm3 02/11/20 04:12 Blast Cells # 0.0 K/mm3 02/11/20 04:12 WBC Morphology Not Reportable 02/11/20 04:12 Hypersegmented Neuts Not Reportable 02/11/20 04:12 Hyposegmented Neuts Not Reportable 02/11/20 04:12 Hypogranular Neuts Not Reportable 02/11/20 04:12 Smudge Cells Not Reportable 02/11/20 04:12 Toxic Granulation Not Reportable 02/11/20 04:12 Toxic Vacuolation Not Reportable 02/11/20 04:12 Dohle Bodies Not Reportable 02/11/20 04:12 Pelger-Huet Anomaly Not Reportable 02/11/20 04:12 Lata Rods Not Reportable 02/11/20 04:12 Platelet Estimate Consistent w auto 02/11/20 04:12 Clumped Platelets Not Reportable 02/11/20 04:12 Plt Clumps, EDTA Not Reportable 02/11/20 04:12 Large Platelets Not Reportable 02/11/20 04:12 Giant Platelets Not Reportable 02/11/20 04:12 Platelet Satelliting Not Reportable 02/11/20 04:12 Plt Morphology Comment Not Reportable 02/11/20 04:12 RBC Morphology Not Reportable 02/11/20 04:12 Dimorphic RBCs Not Reportable 02/11/20 04:12 Polychromasia Not Reportable 02/11/20 04:12 Hypochromasia Not Reportable 02/11/20 04:12 Poikilocytosis Not Reportable 02/11/20 04:12 Anisocytosis 2+ 02/11/20 04:12 Microcytosis Not Reportable 02/11/20 04:12 Macrocytosis Few 02/11/20 04:12 Spherocytes Not Reportable 02/11/20 04:12 Pappenheimer Bodies Not Reportable 02/11/20 04:12 Sickle Cells Not Reportable 02/11/20 04:12 Target Cells Few 02/11/20 04:12 Tear Drop Cells Not Reportable 02/11/20 04:12 Ovalocytes Not Reportable 02/11/20 04:12 Helmet Cells Not Reportable 02/11/20 04:12 [place] Bodies Not Reportable 02/11/20 04:12 [place] Rings Not Reportable 02/11/20 04:12 [place] Cells Not Reportable 02/11/20 04:12 Bite Cells Not Reportable 02/11/20 04:12 Crenated Cell Not Reportable 02/11/20 04:12 Elliptocytes Not Reportable 02/11/20 04:12 Acanthocytes (Spur) Not Reportable 02/11/20 04:12 Rouleaux Not Reportable 02/11/20 04:12 Hemoglobin C Crystals Not Reportable 02/11/20 04:12 Schistocytes Not Reportable 02/11/20 04:12 Malaria parasites Not Reportable 02/11/20 04:12 Gideon Bodies Not Reportable 02/11/20 04:12 Hem Pathologist Commnt No 02/11/20 04:12 APTT 33.9 Sec. (24.2-36.6) 01/26/20 16:30 PT 14.4 Sec. (12.2-14.9) 02/02/20 05:25 INR 1.11 (0.87-1.13) 02/02/20 05:25 Heparin Anti-Xa Level 0.74 U.I./ml (0.3-0.7) H 01/28/20 08:50 ABG pH 7.480 (7.320-7.450) H 02/11/20 03:43 POC ABG pCO2 38.5 mmHg (32.0-48.0) 02/11/20 03:43 ABG pCO2 38.3 mm Hg 02/10/20 04:38 POC ABG pO2 112.6 mmHg (83-108) H 02/11/20 03:43 ABG pO2 136.0 mm Hg (80.0-90.0) H 02/10/20 04:38 POC ABG HCO3 28 02/11/20 03:43 ABG HCO3 29.3 mmol/L (20.0-26.0) H 02/10/20 04:38 ABG O2 Saturation 98.8 % (95.0-99.0) 02/10/20 04:38 ABG O2 Content 8.8 (0.0-44) 02/10/20 04:38 POC ABG Base Excess 4.2 02/11/20 03:43 ABG Base Excess 5.7 mmol/L (-2.0-3.0) H 02/10/20 04:38 ABG Hemoglobin 7.2 (12.0-17.5) L 02/11/20 03:43 ABG Oxyhemoglobin 96.7 (94-98) 02/09/20 03:04 ABG Carboxyhemoglobin 1.7 % (0.0-5.0) 02/10/20 04:38 ABG Methemoglobin 0.5 % (0.0-1.5) 02/10/20 04:38 ABG Sodium 138.5 mmol/L (136.0-145.0) 02/11/20 03:43 ABG Potassium 3.4 mmol/L (3.40-4.50) 02/11/20 03:43 ABG Chloride 107.0 mmol/L (98-107) 02/11/20 03:43 ABG Glucose 154 mg/dL (65-95) H 02/11/20 03:43 Oxyhemoglobin 96.5 % (95.0-99.0) 02/10/20 04:38 Carboxyhemoglobin 0.9 (0.5-1.5) 02/08/20 03:55 FiO2 30.0 02/11/20 03:43 Sodium 146 mmol/L (137-145) H 02/11/20 04:12 Potassium 3.6 mmol/L (3.6-5.0) 02/11/20 04:12 Chloride 105.1 mmol/L (98-107) 02/11/20 04:12 Carbon Dioxide 29 mmol/L (22-30) 02/11/20 04:12 Anion Gap 16 mmol/L 02/11/20 04:12 BUN 24 mg/dL (7-17) H 02/11/20 04:12 Creatinine 0.4 mg/dL (0.6-1.2) L 02/11/20 04:12 Estimated GFR > 60 ml/min 02/11/20 04:12 BUN/Creatinine Ratio 60 % 02/11/20 04:12 Glucose 168 mg/dL (65-100) H 02/11/20 04:12 POC Glucose 190 (70-105) H 02/11/20 05:50 Hemoglobin A1c 5.3 % (4-6) 01/11/20 00:45 Lactic Acid 1.30 mmol/L (0.7-2.0) 01/26/20 23:27 Calcium 8.0 mg/dL (8.4-10.2) L 02/11/20 04:12 Phosphorus 2.30 mg/dL (2.5-4.5) L 02/03/20 05:14 Magnesium 2.20 mg/dL (1.7-2.3) 02/06/20 05:11 Total Bilirubin 0.20 mg/dL (0.1-1.2) 02/06/20 05:11 AST 16 units/L (5-40) 02/06/20 05:11 ALT 18 units/L (7-56) 02/06/20 05:11 Alkaline Phosphatase 51 units/L (35-129) 02/06/20 05:11 C-Reactive Protein 14.80 mg/dL (0.00-1.30) H 01/29/20 Unknown Total Protein 3.6 g/dL (6.3-8.2) L D 02/06/20 05:11 Albumin 1.2 g/dL (3.9-5) L 02/06/20 05:11 Albumin/Globulin Ratio 0.5 % 02/06/20 05:11 TSH 2.440 mlU/mL (0.270-4.200) 01/10/20 10:10 Procalcitonin 1.86 ng/mL (<0.15) 01/29/20 Unknown Arterial Blood Glucose 154 mg/dL (65-95) H 02/11/20 03:43 Arterial Blood Ionized Calcium 4.6 mg/dL (4.6-5.3) 02/11/20 03:43 Urine Color [place] (Yellow) 01/08/20 Unknown Urine Turbidity Cloudy (Clear) 01/08/20 Unknown Urine pH 5.0 (5.0-7.0) 01/08/20 Unknown Ur Specific [place] 1.018 (1.003-1.030) 01/08/20 Unknown Urine Protein 30 mg/dl mg/dL (Negative) 01/08/20 Unknown Urine Glucose (UA) Neg mg/dL (Negative) 01/08/20 Unknown Urine Ketones Neg mg/dL (Negative) 01/08/20 Unknown Urine Blood Mod (Negative) 01/08/20 Unknown Urine Nitrite Neg (Negative) 01/08/20 Unknown Urine Bilirubin Neg (Negative) 01/08/20 Unknown Urine Urobilinogen < 2.0 mg/dL (<2.0) 01/08/20 Unknown Ur Leukocyte Esterase Sm (Negative) 01/08/20 Unknown Urine WBC (Auto) 11.0 /HPF (0.0-6.0) H 01/08/20 Unknown Urine RBC (Auto) 7.0 /HPF (0.0-6.0) 01/08/20 Unknown U Epithel Cells (Auto) < 1.0 /HPF (0-13.0) 01/08/20 Unknown Urine Bacteria (Auto) 1+ /HPF (Negative) 01/08/20 Unknown Urine Mucus 2+ /HPF 01/08/20 Unknown Urine Yeast (Budding) 1+ /HPF 01/08/20 Unknown Vancomycin Trough 7.9 ug/mL (5.0-20.0) 01/17/20 16:04 Coronavirus (PCR) (Negative) 02/10/20 10:06 Mejía/IV: Voiding Method Indwelling Catheter IV Catheter Type [Left Upper PICC Line arm] IV Catheter Type [Right Upper Mid-line arm] IV Catheter Type [Right Peripheral IV Forearm] Active Medications - Current Medications Current Medications: Generic Name Dose Route Start Last Admin Trade Name Freq PRN Reason Stop Dose Admin Acetaminophen 650 mg 01/08/20 23:14 01/18/20 06:03 Tylenol PO 650 mg Q4H PRN Administration Pain MILD(1-3)/Fever >100.5/GARCIA Lipase/Protease/Amylase 1 each 01/17/20 08:[address] 10,500 Unit FEEDTUBE PRN PRN For Clogged Feeding Tube Atorvastatin Calcium 10 mg 01/09/20 22:00 02/10/20 21:27 Atorvastatin PO 10 mg QHS BRO Administration Dextrose 0 ml 01/08/20 23:14 02/10/20 17:18 D50w (25gm) Syringe IV 10 ml Q30MIN PRN Administration Hypoglycemia Protocol Donepezil HCl 10 mg 01/09/20 22:00 02/10/20 21:27 Aricept PO 10 mg QHS BRO Administration Famotidine 20 mg 01/27/20 10:00 02/10/20 21:28 Pepcid PO 20 mg BID BRO Administration Ferrous Sulfate 308 mg 02/09/20 12:00 02/10/20 09:22 Ferrous Sulfate FEEDTUBE 308 mg DAILY BRO Administration Fluticasone Propionate 100 mcg 01/25/20 20:00 01/26/20 06:09 Flonase NS 100 mcg QDAY PRN Administration Nasal Congestion Heparin Sodium (Porcine) 5,000 unit 01/28/20 10:00 02/10/20 21:27 Heparin SUB-Q 5,000 unit Q12HR BRO Administration Hydrophilic Ointment 1 applic 01/28/20 10:57 Vaseline Lip Therapy TP Q2HR PRN Dry Lips Piperacillin Sod/Tazobactam Sod 4.5 gm in 100 mls @ 200 mls/hr 01/19/20 14:00 02/11/20 06:00 Zosyn/Ns 4.5gm/100ml IV 02/27/20 22:29 Infused Q8HR BRO Infusion Protocol Norepinephrine 4 mg in 250 mls @ 7.5 mls/hr 02/05/20 01:00 02/06/20 15:32 Levophed Drip 4 Mg/Ns 250 Ml IV Infused TITR BRO Titration Protocol 2 MCG/MIN Sodium Chloride 500 mls @ 0 mls/hr 02/11/20 07:56 Nacl 0.9% 500 Ml IV 02/11/20 07:57 ONCE ONE As Directed Insulin Glargine 5 units 02/06/20 10:00 02/10/20 09:23 Lantus SUB-Q 5 units DAILY BRO Administration Insulin Human Regular 0 unit 01/27/20 12:00 02/11/20 06:43 Humulin R SUB-Q 3 unit Q6HR BRO Administration Protocol Magnesium Hydroxide 30 ml 01/08/20 23:14 Milk Of Magnesia PO Q4H PRN Constipation Megestrol Acetate 400 mg 01/12/20 11:00 02/10/20 09:24 Megestrol PO 400 mg QDAY BRO Administration Mirtazapine 15 mg 01/09/20 22:00 02/10/20 21:28 Remeron PO 15 mg QHS BRO Administration Multi-Ingred Cream/Lotion/Oil/Oint 1 applic 01/28/20 10:57 Artificial Tears Ophth Oint OU Q4HR PRN Dry Eye(s) Multivitamins 5 ml 02/09/20 12:00 02/10/20 09:24 Centrum Liq PO 5 ml QDAY BRO Administration Neomycin/Polymyxin/Bacitracin 1 applic 02/08/20 04:45 02/10/20 09:21 Triple Antibiotic TP 1 applic QDAY BRO Administration Ondansetron HCl 4 mg 01/08/20 23:14 Zofran IV Q8H PRN Nausea And Vomiting Scopolamine 1 each 02/05/20 10:00 02/08/20 10:05 Transderm-Scop TD 1 each Q3D BRO Administration Simple Syrup 15 ml 01/17/20 08:37 Simple Syrup FEEDTUBE PRN PRN Hypoglycemia Simple Syrup 30 ml 01/17/20 08:37 Simple Syrup FEEDTUBE PRN PRN Hypoglycemia Sodium Bicarbonate 325 mg 01/17/20 08:37 Sodium Bicarbonate FEEDTUBE PRN PRN For Clogged Feeding Tube Sodium Chloride 10 ml 01/09/20 10:00 02/10/20 21:29 Sodium Chloride Flush Syringe 10 Ml IV 10 ml BID BRO Administration Sodium Chloride 10 ml 01/08/20 23:14 Sodium Chloride Flush Syringe 10 Ml IV PRN PRN LINE FLUSH Trazodone HCl 25 mg 01/09/20 22:00 02/10/20 21:28 Desyrel PO 25 mg QHS BRO Administration Nutrition/Malnutrition Assess - Dietary Evaluation Nutrition/Malnutrition Findings: Nutrition Notes Start: 01/09/20 12:13 Freq: Status: Active Protocol: Document 02/10/20 13:23 FLORINDA (Rec: 02/10/20 13:45 FLORINDA [id number]) Co-Sign 02/10/20 13:23 MK Nutrition Notes Initial or Follow up Reassessment Current Diagnosis Decubitus(Pressure Ulcer), Diabetes,Sepsis Other Pertinent Diagnosis UTI, dementia, PE, Sacral wound Current Diet Vital AF 1.2 at 50ml/hr Labs/Tests 02/08 K 3.3 Cr 0.4 BUN 27 BG 127 Pertinent Medications Insulin (Lantus and Humulin) Height 5 ft 2 in Weight 71.1 kg [place] Body Weight (kg) 50.00 BMI 28.6 Weight change and time frame Wt change noted. Pt 4+ pitting edema continues. Subjective/Other Information F/U for TF tolerance. Pt TF running at goal rate. Percent of energy/protein needs met: 92%/100% Burn Absent Trauma Absent Current % PO Negligible Minimum of two criteria Yes Fluid Accumulation Moderate to Severe (severe) Reduced Eyelet [place] Strength Measurably Reduced (severe) #3 Nutrition Diagnosis Malnutrition Diagnosis Progress(for reassessment Continues documentation) #2 Nutrition Diagnosis Inadequate oral intake Diagnosis Progress(for reassessment Continues documentation) #1 Nutrition Diagnosis Increased nutrient needs ( specify in comment below) Comments: protein Diagnosis Progress(for reassessment Continues documentation) Is patient on ventilator? No Is Patient Ambulatory and/or Out of Bed No REE-([place]-confined to bed) 1426.968 Kcal/Kg value to use for calculation 22 Approximate Energy Requirements Using 1564 kcal/Kg Calculation Used for Recommendations Kcal/kg Additional Notes Pro: 81-98 g (1.25-1.5 g/kg) Fluid: 1ml/kcal Nutrition Intervention Change Diet Order: Continue Nutrition Support: Vital AF 1.2 at 50ml/hr Flush 200ml q4h per MD Kcal 1,440 Protein (gm) 90 Fluid (mL) 973 Goal #1 Meet at least 80% of kcal and protein needs via TF Goal #2 TF tolerance Goal #3 Wound Healing Anticipated Discharge Needs: Continue TF Follow-Up By: 02/12/20 Additional Comments F/U for stable TF and Na levels
[2020-02-11] MEDS: NEOMY 3.5 MG/BACIT 400 UNITS/POLY B 5000 UNITS OINT 15 GM TP SCH (09:57)
[2020-02-11] MEDS: FAMOTIDINE 20 MG TAB PO SCH ×2 (09:57→21:37)
[2020-02-11] MEDS: MULTIVITAMINS 5 ML ORAL LIQUID PO SCH (09:57)
[2020-02-11] MEDS: SCOPOLAMINE TRANSDERMAL PATCH 72 HR TD SCH (09:57)
[2020-02-11] MEDS: MEGESTROL 400 MG/10 ML ORAL LIQD PO SCH (09:58)
[2020-02-11] MEDS: HEPARIN 5,000 UNIT/1 ML VIAL SUB-Q SCH ×2 (09:58→21:38)
[2020-02-11] MEDS: INSULIN GLARGINE 100 UNITS/ML SUB-Q SCH (09:58)
[2020-02-11] MEDS: FERROUS SULFATE 308 MG (62mg Elemental Iron) / 7 ML ELIXIR FEEDTUBE SCH (09:58)
--- NOTE | 2020-02-11 09:59 | Event Note ---
Date: 02/11/20 Patient chart reviewed. COVID testing 02/10/20 is negative. I have already discussed the procedure for tracheostomy placement with the patient's and consent is obtained and on the chart. The patient is scheduled for tracheostomy on Monday 02/12 in the operating room.
--- NOTE | 2020-02-11 11:02 | Event Note ---
Date: 02/11/20 Detailed discussion with her - his can receive blood transfusions and blood products. Will transfuse 1 unit PRBC
--- NOTE | 2020-02-11 11:17 | Progress Note ---
Assessment and Plan Severe sepsis with shock. Left lung atelectasis. Left pleural effusion. Acute hypoxemic respiratory failure on MVS s/p Cardiopulamanry arrest with ROSC x2 Severe sepsis with shock Acute possibly on chronic encephalopathy. History of diabetes. Urinary tract infection. History of pulmonary embolism, diagnosed several months ago. Sacral decubitus ulcer. Dementia. Anemia that is normocytic. Trach on Sunday Transfuse 1 unit PRBC, spoke with the -Monitor hemodynamics closely and hemoglobin -VAP bundle addressed, Daily SBT as tolerated -Wean FIO2 for O2 sats >92%, currently on FIO2 of 30% -Aspiration precautions, HOB >40 -Enteric nutritional support- has a PEG - continue bronchodilators with pulmonary hygiene per RT - continue accuchecks with glycemic control per SSI (While critically ill target blood glucose of 140-180 mg/dL; avoid hypoglycemia) - avoid nephrotoxins, renally dose all medications - continue to avoid benzodiazepines, reduce the possibility of delirium - complete antibiotics -on Zosyn for sacral osteomyelitis Discussed with ID - prn analgesia per CPOT score - Maintenance of sleep-wake cycle, avoid delirium -VTE prophylaxis with Heparin - Stress ulcer prophylaxis with Famotidine - PT/OT/ROM exercises - continue mobility protocol, frequent turning and off loading to prevent further pressure ulcers -Wound care with wound vac - Monitor hemodynamics closely -Free water flushes for hypernatremia - continue other care per attending / other consultants CONDITION: CRITICAL PROGNOSIS: GUARDED CODE STATUS: FULL CODE The high probability of a clinically significant, sudden or life-threatening deterioration of the [respiratory, cardiovascular & neurologic] system(s) required my full and direct attention, intervention and personal management. The aggregate critical care time was [33] minutes without overlap. Time includes spent on; [x] Data Review and interpretation [x] Patient assessment and monitoring of vital signs [x] Documentation [x] Medication orders and management Subjective Date of service: 02/11/20 Principal diagnosis: Septic Shock; S/P Cardiac Arrest; Ac. hypoxemic resp failure; UTI Interval history: Patient is seen today for: PEA arrest with ROSC, now orally intubated on MVS; Severe sepsis with shock ; Acute hypoxemic respiratory failure; Acute possibly on chronic encephalopathy; DM II ; UTI ; VTE Seen and examined at bedside; 24hour events reviewed; nursing and respiratory care staff consulted; no adverse overnight events reported to me; resting peacefully in bed; No fevers, no vomiting. Orally intubated, awake and alert. Not on any pressors. No overnight events. Has a Mejía and FMS is place Plan for trach on Sunday Objective Vital Signs - 12hr 02/10/20 02/10/20 02/11/20 23:31 23:45 00:00 Temperature 97.4 F L Pulse Rate 78 98 H 102 H Pulse Rate [ 102 H From Monitor] Respiratory 21 22 22 Rate Blood Pressure 106/52 106/52 O2 Sat by Pulse 100 100 100 Oximetry 02/11/20 02/11/20 02/11/20 00:01 00:15 00:30 Temperature Pulse Rate 102 H 87 78 Pulse Rate [ From Monitor] Respiratory 22 31 H 37 H Rate Blood Pressure 130/63 126/58 128/55 O2 Sat by Pulse 100 100 100 Oximetry 02/11/20 02/11/20 02/11/20 00:45 01:00 01:15 Temperature Pulse Rate 89 93 H 103 H Pulse Rate [ From Monitor] Respiratory 22 20 21 Rate Blood Pressure 122/59 126/66 133/68 O2 Sat by Pulse 100 100 100 Oximetry 02/11/20 02/11/20 02/11/20 01:30 01:45 02:00 Temperature Pulse Rate 91 H 96 H 106 H Pulse Rate [ From Monitor] Respiratory 22 21 22 Rate Blood Pressure 133/63 123/63 133/69 O2 Sat by Pulse 100 100 100 Oximetry 02/11/20 02/11/20 02/11/20 02:15 02:31 02:45 Temperature Pulse Rate 89 113 H 110 H Pulse Rate [ From Monitor] Respiratory 20 19 36 H Rate Blood Pressure 120/61 140/75 138/70 O2 Sat by Pulse 100 100 100 Oximetry 02/11/20 02/11/20 02/11/20 03:01 03:15 03:30 Temperature Pulse Rate 101 H 99 H Pulse Rate [ From Monitor] Respiratory 30 H 29 H 27 H Rate Blood Pressure 138/70 126/65 125/64 O2 Sat by Pulse 100 100 100 Oximetry 02/11/20 02/11/20 02/11/20 03:45 04:00 04:15 Temperature 97.9 F Pulse Rate 108 H 104 H 101 H Pulse Rate [ 104 H From Monitor] Respiratory 21 22 22 Rate Blood Pressure 126/66 131/68 121/61 O2 Sat by Pulse 100 100 100 Oximetry 02/11/20 02/11/20 02/11/20 04:30 04:44 04:45 Temperature Pulse Rate 100 H 112 H 113 H Pulse Rate [ From Monitor] Respiratory 23 23 Rate Blood Pressure 123/67 123/67 125/65 O2 Sat by Pulse 100 100 100 Oximetry 02/11/20 02/11/20 02/11/20 05:00 05:15 05:30 Temperature Pulse Rate 114 H 108 H 111 H Pulse Rate [ From Monitor] Respiratory 24 23 24 Rate Blood Pressure 122/65 119/61 117/63 O2 Sat by Pulse 100 100 100 Oximetry 02/11/20 02/11/20 02/11/20 05:45 06:00 06:15 Temperature Pulse Rate 105 H 103 H 110 H Pulse Rate [ From Monitor] Respiratory 23 23 24 Rate Blood Pressure 119/68 118/63 120/65 O2 Sat by Pulse 100 100 100 Oximetry 02/11/20 02/11/20 02/11/20 06:30 06:45 07:00 Temperature Pulse Rate 101 H 103 H 105 H Pulse Rate [ From Monitor] Respiratory 23 24 25 H Rate Blood Pressure 121/64 122/64 122/65 O2 Sat by Pulse 100 100 100 Oximetry 02/11/20 02/11/20 02/11/20 07:15 07:30 07:45 Temperature Pulse Rate 100 H 104 H 106 H Pulse Rate [ From Monitor] Respiratory 22 24 24 Rate Blood Pressure 116/61 126/68 124/70 O2 Sat by Pulse 100 100 100 Oximetry 02/11/20 02/11/20 02/11/20 08:00 08:07 08:15 Temperature 97.1 F L Pulse Rate 97 H 105 H 105 H Pulse Rate [ 98 H From Monitor] Respiratory 24 24 25 H Rate Blood Pressure 114/61 109/67 109/67 O2 Sat by Pulse 100 100 100 Oximetry 02/11/20 02/11/20 02/11/20 08:30 08:45 09:00 Temperature Pulse Rate 97 H 98 H 99 H Pulse Rate [ From Monitor] Respiratory 25 H 27 H 23 Rate Blood Pressure 113/61 115/63 114/60 O2 Sat by Pulse 100 100 100 Oximetry 02/11/20 02/11/20 02/11/20 09:15 09:30 09:45 Temperature Pulse Rate 99 H 96 H 93 H Pulse Rate [ From Monitor] Respiratory 27 H 24 19 Rate Blood Pressure 117/64 120/62 107/57 O2 Sat by Pulse 100 100 100 Oximetry 02/11/20 02/11/20 02/11/20 10:00 10:15 10:30 Temperature Pulse Rate 98 H 98 H 90 Pulse Rate [ From Monitor] Respiratory 26 H 25 H 24 Rate Blood Pressure 102/63 99/60 113/55 O2 Sat by Pulse 100 100 100 Oximetry 02/11/20 02/11/20 10:45 11:00 Temperature Pulse Rate 97 H 95 H Pulse Rate [ From Monitor] Respiratory 24 26 H Rate Blood Pressure 114/59 108/57 O2 Sat by Pulse 100 100 Oximetry Constitutional: no acute distress, alert, other (elderly chronically ill looking female orally intubated to [facility] [place] Eyes: non-icteric ENT: oropharynx moist, other (ETT 7.5 cm at 22 [address]) Neck: supple, no lymphadenopathy Effort: normal Ascultation: Bilateral: clear, diminished breath sounds, rales (bases predominant), rhonchi (scant) Percussion: Bilateral: not dull Cardiovascular: regular rate and rhythm, other (S1,S2) Gastrointestinal: normoactive bowel sounds, soft, non-tender, other (PEG in place) Integumentary: decubitus ulcer Extremities: no cyanosis, pulses normal, no ischemia or petechiae, edema, other (bilateral upper extremity edema) Neurologic: pupils equal and round, other (awake and alert, not obeying commands) Psychiatric: other (Unable to assess secondary to mental status) CBC and BMP: 02/14/20 04:26 02/14/20 04:26 ABG, PT/INR, D-dimer: ABG ABG pH 7.480 (7.320-7.450) H 02/11/20 03:43 POC ABG pCO2 38.5 mmHg (32.0-48.0) 02/11/20 03:43 ABG pCO2 38.3 mm Hg 02/10/20 04:38 POC ABG pO2 112.6 mmHg (83-108) H 02/11/20 03:43 ABG pO2 136.0 mm Hg (80.0-90.0) H 02/10/20 04:38 POC ABG HCO3 28 02/11/20 03:43 ABG O2 Saturation 98.8 % (95.0-99.0) 02/10/20 04:38 PT/INR, D-dimer PT 14.4 Sec. (12.2-14.9) 02/02/20 05:25 INR 1.11 (0.87-1.13) 02/02/20 05:25 Abnormal lab findings: Abnormal Labs 01/08/20 01/08/20 01/08/20 16:29 16:29 16:29 WBC 13.5 H RBC Hgb Hct MCHC RDW 15.5 H Plt Count MCH Lymph % (Auto) Lymph # Lymph # (Auto) Seg Neutrophils % Seg Neuts % (Manual) 85.0 H Lymphocytes % (Manual) 11.0 L Seg Neutrophils # Seg Neutrophils # Man 11.5 H Nucleated RBC % Lymphocytes # (Manual) Monocytes # (Manual) PT INR Heparin Anti-Xa Level POC ABG pO2 ABG pH POC ABG pCO2 ABG Hemoglobin ABG Oxyhemoglobin ABG pO2 ABG HCO3 ABG O2 Saturation ABG Base Excess ABG Potassium ABG Chloride ABG Glucose Oxyhemoglobin Sodium 161 H* Potassium Chloride 125.5 H Carbon Dioxide 20 L BUN 30 H Creatinine Glucose 115 H POC Glucose Lactic Acid 2.20 H* Calcium 7.9 L AST 48 H Phosphorus Total Protein Albumin 2.5 L C-Reactive Protein Arterial Blood Glucose Arterial Blood Ionized Calcium Urine WBC (Auto) Crossmatch 01/08/20 01/08/20 01/08/20 19:02 23:30 Unknown WBC RBC Hgb Hct MCHC RDW Plt Count MCH Lymph % (Auto) Lymph # Lymph # (Auto) Seg Neutrophils % Seg Neuts % (Manual) Lymphocytes % (Manual) Seg Neutrophils # Seg Neutrophils # Man Nucleated RBC % Lymphocytes # (Manual) Monocytes # (Manual) PT INR Heparin Anti-Xa Level POC ABG pO2 ABG pH POC ABG pCO2 ABG Hemoglobin ABG Oxyhemoglobin ABG pO2 ABG HCO3 ABG O2 Saturation ABG Base Excess ABG Potassium ABG Chloride ABG Glucose Oxyhemoglobin Sodium Potassium Chloride Carbon Dioxide BUN Creatinine Glucose POC Glucose Lactic Acid 2.10 H* 2.50 H* Calcium AST Phosphorus Total Protein Albumin C-Reactive Protein Arterial Blood Glucose Arterial Blood Ionized Calcium Urine WBC (Auto) 11.0 H Crossmatch 01/09/20 01/09/20 01/09/20 00:19 00:54 05:52 WBC 13.5 H RBC 3.02 L Hgb 9.0 L D Hct 27.4 L D MCHC RDW Plt Count MCH Lymph % (Auto) 9.1 L Lymph # Lymph # (Auto) Seg Neutrophils % 87.6 H Seg Neuts % (Manual) Lymphocytes % (Manual) Seg Neutrophils # 11.8 H Seg Neutrophils # Man Nucleated RBC % Lymphocytes # (Manual) Monocytes # (Manual) PT INR Heparin Anti-Xa Level POC ABG pO2 ABG pH POC ABG pCO2 ABG Hemoglobin ABG Oxyhemoglobin ABG pO2 ABG HCO3 ABG O2 Saturation ABG Base Excess ABG Potassium ABG Chloride ABG Glucose Oxyhemoglobin Sodium Potassium Chloride Carbon Dioxide BUN Creatinine Glucose POC Glucose 118 H 116 H Lactic Acid Calcium AST Phosphorus Total Protein Albumin C-Reactive Protein Arterial Blood Glucose Arterial Blood Ionized Calcium Urine WBC (Auto) Crossmatch 01/09/20 01/09/20 01/09/20 05:52 05:52 13:03 WBC RBC Hgb Hct MCHC RDW Plt Count MCH Lymph % (Auto) Lymph # Lymph # (Auto) Seg Neutrophils % Seg Neuts % (Manual) Lymphocytes % (Manual) Seg Neutrophils # Seg Neutrophils # Man Nucleated RBC % Lymphocytes # (Manual) Monocytes # (Manual) PT 17.1 H INR 1.36 H Heparin Anti-Xa Level POC ABG pO2 ABG pH POC ABG pCO2 ABG Hemoglobin ABG Oxyhemoglobin ABG pO2 ABG HCO3 ABG O2 Saturation ABG Base Excess ABG Potassium ABG Chloride ABG Glucose Oxyhemoglobin Sodium 162 H* Potassium 3.0 L D Chloride 128.3 H Carbon Dioxide BUN 23 H Creatinine Glucose POC Glucose 55 L Lactic Acid Calcium 7.6 L AST Phosphorus Total Protein Albumin C-Reactive Protein Arterial Blood Glucose Arterial Blood Ionized Calcium Urine WBC (Auto) Crossmatch 01/09/20 01/09/20 01/09/20 21:22 21:50 22:28 WBC RBC Hgb Hct MCHC RDW Plt Count MCH Lymph % (Auto) Lymph # Lymph # (Auto) Seg Neutrophils % Seg Neuts % (Manual) Lymphocytes % (Manual) Seg Neutrophils # Seg Neutrophils # Man Nucleated RBC % Lymphocytes # (Manual) Monocytes # (Manual) PT INR Heparin Anti-Xa Level POC ABG pO2 ABG pH POC ABG pCO2 ABG Hemoglobin ABG Oxyhemoglobin ABG pO2 ABG HCO3 ABG O2 Saturation ABG Base Excess ABG Potassium ABG Chloride ABG Glucose Oxyhemoglobin Sodium 159 H Potassium 5.1 H D Chloride 128.5 H Carbon Dioxide 16 L BUN 23 H Creatinine Glucose 51 L POC Glucose 52 L 106 H Lactic Acid Calcium 8.2 L AST Phosphorus Total Protein Albumin C-Reactive Protein Arterial Blood Glucose Arterial Blood Ionized Calcium Urine WBC (Auto) Crossmatch 01/10/20 01/10/20 01/10/20 05:23 09:11 10:10 WBC 13.4 H RBC Hgb Hct MCHC RDW Plt Count MCH Lymph % (Auto) 7.2 L Lymph # 1.0 L Lymph # (Auto) Seg Neutrophils % 90.0 H Seg Neuts % (Manual) Lymphocytes % (Manual) Seg Neutrophils # 12.0 H Seg Neutrophils # Man Nucleated RBC % Lymphocytes # (Manual) Monocytes # (Manual) PT INR Heparin Anti-Xa Level POC ABG pO2 ABG pH POC ABG pCO2 ABG Hemoglobin ABG Oxyhemoglobin ABG pO2 ABG HCO3 ABG O2 Saturation ABG Base Excess ABG Potassium ABG Chloride ABG Glucose Oxyhemoglobin Sodium 155 H Potassium Chloride 122.8 H Carbon Dioxide 21 L BUN 19 H Creatinine Glucose POC Glucose 120 H Lactic Acid Calcium AST Phosphorus Total Protein Albumin C-Reactive Protein Arterial Blood Glucose Arterial Blood Ionized Calcium Urine WBC (Auto) Crossmatch 01/10/20 01/10/20 01/10/20 11:47 11:57 17:09 WBC RBC Hgb Hct MCHC RDW Plt Count MCH Lymph % (Auto) Lymph # Lymph # (Auto) Seg Neutrophils % Seg Neuts % (Manual) Lymphocytes % (Manual) Seg Neutrophils # Seg Neutrophils # Man Nucleated RBC % Lymphocytes # (Manual) Monocytes # (Manual) PT INR Heparin Anti-Xa Level POC ABG pO2 ABG pH POC ABG pCO2 ABG Hemoglobin ABG Oxyhemoglobin ABG pO2 ABG HCO3 ABG O2 Saturation ABG Base Excess ABG Potassium ABG Chloride ABG Glucose Oxyhemoglobin Sodium 153 H Potassium Chloride 118.3 H Carbon Dioxide 20 L BUN 19 H Creatinine Glucose 113 H POC Glucose 142 H 125 H Lactic Acid Calcium AST Phosphorus Total Protein Albumin C-Reactive Protein Arterial Blood Glucose Arterial Blood Ionized Calcium Urine WBC (Auto) Crossmatch 01/10/20 01/10/20 01/11/20 20:27 22:00 00:45 WBC RBC Hgb Hct MCHC RDW Plt Count MCH Lymph % (Auto) Lymph # Lymph # (Auto) Seg Neutrophils % Seg Neuts % (Manual) Lymphocytes % (Manual) Seg Neutrophils # Seg Neutrophils # Man Nucleated RBC % Lymphocytes # (Manual) Monocytes # (Manual) PT INR Heparin Anti-Xa Level POC ABG pO2 ABG pH POC ABG pCO2 ABG Hemoglobin ABG Oxyhemoglobin ABG pO2 ABG HCO3 ABG O2 Saturation ABG Base Excess ABG Potassium ABG Chloride ABG Glucose Oxyhemoglobin Sodium 153 H 154 H Potassium 3.3 L 3.2 L Chloride 117.0 H 118.9 H Carbon Dioxide 20 L BUN Creatinine Glucose POC Glucose 136 H Lactic Acid Calcium 8.3 L 8.0 L AST Phosphorus Total Protein Albumin C-Reactive Protein Arterial Blood Glucose Arterial Blood Ionized Calcium Urine WBC (Auto) Crossmatch 01/11/20 01/11/20 01/11/20 07:06 08:03 11:54 WBC RBC Hgb Hct MCHC RDW Plt Count MCH Lymph % (Auto) Lymph # Lymph # (Auto) Seg Neutrophils % Seg Neuts % (Manual) Lymphocytes % (Manual) Seg Neutrophils # Seg Neutrophils # Man Nucleated RBC % Lymphocytes # (Manual) Monocytes # (Manual) PT INR Heparin Anti-Xa Level POC ABG pO2 ABG pH POC ABG pCO2 ABG Hemoglobin ABG Oxyhemoglobin ABG pO2 ABG HCO3 ABG O2 Saturation ABG Base Excess ABG Potassium ABG Chloride ABG Glucose Oxyhemoglobin Sodium 151 H Potassium Chloride 118.7 H Carbon Dioxide 21 L BUN Creatinine Glucose 107 H POC Glucose 118 H 164 H Lactic Acid Calcium 8.3 L AST Phosphorus Total Protein Albumin C-Reactive Protein Arterial Blood Glucose Arterial Blood Ionized Calcium Urine WBC (Auto) Crossmatch 01/11/20 01/12/20 01/12/20 16:28 00:19 05:40 WBC RBC Hgb Hct MCHC RDW Plt Count MCH Lymph % (Auto) Lymph # Lymph # (Auto) Seg Neutrophils % Seg Neuts % (Manual) Lymphocytes % (Manual) Seg Neutrophils # Seg Neutrophils # Man Nucleated RBC % Lymphocytes # (Manual) Monocytes # (Manual) PT INR Heparin Anti-Xa Level POC ABG pO2 ABG pH POC ABG pCO2 ABG Hemoglobin ABG Oxyhemoglobin ABG pO2 ABG HCO3 ABG O2 Saturation ABG Base Excess ABG Potassium ABG Chloride ABG Glucose Oxyhemoglobin Sodium 148 H Potassium Chloride 111.6 H Carbon Dioxide 19 L BUN Creatinine Glucose 128 H POC Glucose 132 H 179 H Lactic Acid Calcium 8.2 L AST Phosphorus Total Protein Albumin C-Reactive Protein Arterial Blood Glucose Arterial Blood Ionized Calcium Urine WBC (Auto) Crossmatch 01/12/20 01/12/20 01/12/20 06:17 11:37 17:21 WBC RBC Hgb Hct MCHC RDW Plt Count MCH Lymph % (Auto) Lymph # Lymph # (Auto) Seg Neutrophils % Seg Neuts % (Manual) Lymphocytes % (Manual) Seg Neutrophils # Seg Neutrophils # Man Nucleated RBC % Lymphocytes # (Manual) Monocytes # (Manual) PT INR Heparin Anti-Xa Level POC ABG pO2 ABG pH POC ABG pCO2 ABG Hemoglobin ABG Oxyhemoglobin ABG pO2 ABG HCO3 ABG O2 Saturation ABG Base Excess ABG Potassium ABG Chloride ABG Glucose Oxyhemoglobin Sodium Potassium Chloride Carbon Dioxide BUN Creatinine Glucose POC Glucose 140 H 142 H 133 H Lactic Acid Calcium AST Phosphorus Total Protein Albumin C-Reactive Protein Arterial Blood Glucose Arterial Blood Ionized Calcium Urine WBC (Auto) Crossmatch 01/12/20 01/13/20 01/13/20 23:14 05:26 07:00 WBC RBC Hgb Hct MCHC RDW Plt Count MCH Lymph % (Auto) Lymph # Lymph # (Auto) Seg Neutrophils % Seg Neuts % (Manual) Lymphocytes % (Manual) Seg Neutrophils # Seg Neutrophils # Man Nucleated RBC % Lymphocytes # (Manual) Monocytes # (Manual) PT INR Heparin Anti-Xa Level POC ABG pO2 ABG pH POC ABG pCO2 ABG Hemoglobin ABG Oxyhemoglobin ABG pO2 ABG HCO3 ABG O2 Saturation ABG Base Excess ABG Potassium ABG Chloride ABG Glucose Oxyhemoglobin Sodium Potassium Chloride 110.0 H Carbon Dioxide BUN Creatinine Glucose 139 H POC Glucose 135 H 162 H Lactic Acid Calcium 7.8 L AST Phosphorus Total Protein Albumin C-Reactive Protein Arterial Blood Glucose Arterial Blood Ionized Calcium Urine WBC (Auto) Crossmatch 01/13/20 01/13/20 01/13/20 12:14 17:52 21:40 WBC RBC Hgb Hct MCHC RDW Plt Count MCH Lymph % (Auto) Lymph # Lymph # (Auto) Seg Neutrophils % Seg Neuts % (Manual) Lymphocytes % (Manual) Seg Neutrophils # Seg Neutrophils # Man Nucleated RBC % Lymphocytes # (Manual) Monocytes # (Manual) PT INR Heparin Anti-Xa Level POC ABG pO2 ABG pH POC ABG pCO2 ABG Hemoglobin ABG Oxyhemoglobin ABG pO2 ABG HCO3 ABG O2 Saturation ABG Base Excess ABG Potassium ABG Chloride ABG Glucose Oxyhemoglobin Sodium Potassium Chloride Carbon Dioxide BUN Creatinine Glucose POC Glucose 205 H 172 H 186 H Lactic Acid Calcium AST Phosphorus Total Protein Albumin C-Reactive Protein Arterial Blood Glucose Arterial Blood Ionized Calcium Urine WBC (Auto) Crossmatch 01/14/20 01/14/20 01/14/20 04:28 11:01 11:01 WBC 14.8 H RBC 3.20 L Hgb 9.5 L Hct 28.0 L MCHC RDW Plt Count MCH Lymph % (Auto) Lymph # Lymph # (Auto) Seg Neutrophils % Seg Neuts % (Manual) Lymphocytes % (Manual) Seg Neutrophils # Seg Neutrophils # Man Nucleated RBC % Lymphocytes # (Manual) Monocytes # (Manual) PT INR Heparin Anti-Xa Level POC ABG pO2 ABG pH POC ABG pCO2 ABG Hemoglobin ABG Oxyhemoglobin ABG pO2 ABG HCO3 ABG O2 Saturation ABG Base Excess ABG Potassium ABG Chloride ABG Glucose Oxyhemoglobin Sodium Potassium 3.2 L Chloride Carbon Dioxide BUN Creatinine 0.4 L Glucose POC Glucose 115 H Lactic Acid Calcium 8.0 L AST Phosphorus Total Protein Albumin C-Reactive Protein Arterial Blood Glucose Arterial Blood Ionized Calcium Urine WBC (Auto) Crossmatch 01/14/20 01/14/20 01/14/20 11:01 16:33 22:32 WBC RBC Hgb Hct MCHC RDW Plt Count MCH Lymph % (Auto) Lymph # Lymph # (Auto) Seg Neutrophils % Seg Neuts % (Manual) Lymphocytes % (Manual) Seg Neutrophils # Seg Neutrophils # Man Nucleated RBC % Lymphocytes # (Manual) Monocytes # (Manual) PT 15.8 H INR 1.23 H Heparin Anti-Xa Level POC ABG pO2 ABG pH POC ABG pCO2 ABG Hemoglobin ABG Oxyhemoglobin ABG pO2 ABG HCO3 ABG O2 Saturation ABG Base Excess ABG Potassium ABG Chloride ABG Glucose Oxyhemoglobin Sodium Potassium Chloride Carbon Dioxide BUN Creatinine Glucose POC Glucose 58 L 188 H Lactic Acid Calcium AST Phosphorus Total Protein Albumin C-Reactive Protein Arterial Blood Glucose Arterial Blood Ionized Calcium Urine WBC (Auto) Crossmatch 09/10/20 09/10/20 09/10/20 05:35 06:19 17:17 WBC RBC Hgb Hct MCHC RDW Plt Count MCH Lymph % (Auto) Lymph # Lymph # (Auto) Seg Neutrophils % Seg Neuts % (Manual) Lymphocytes % (Manual) Seg Neutrophils # Seg Neutrophils # Man Nucleated RBC % Lymphocytes # (Manual) Monocytes # (Manual) PT INR Heparin Anti-Xa Level POC ABG pO2 ABG pH POC ABG pCO2 ABG Hemoglobin ABG Oxyhemoglobin ABG pO2 ABG HCO3 ABG O2 Saturation ABG Base Excess ABG Potassium ABG Chloride ABG Glucose Oxyhemoglobin Sodium Potassium Chloride Carbon Dioxide BUN Creatinine 0.5 L Glucose 104 H POC Glucose 106 H 183 H Lactic Acid Calcium 7.8 L AST Phosphorus Total Protein Albumin C-Reactive Protein Arterial Blood Glucose Arterial Blood Ionized Calcium Urine WBC (Auto) Crossmatch 01/15/20 01/16/20 01/16/20 22:29 05:35 05:59 WBC 14.7 H RBC 3.04 L Hgb 9.0 L Hct 27.0 L MCHC RDW Plt Count MCH Lymph % (Auto) 9.1 L Lymph # Lymph # (Auto) Seg Neutrophils % 87.3 H Seg Neuts % (Manual) Lymphocytes % (Manual) Seg Neutrophils # 12.9 H Seg Neutrophils # Man Nucleated RBC % Lymphocytes # (Manual) Monocytes # (Manual) PT INR Heparin Anti-Xa Level POC ABG pO2 ABG pH POC ABG pCO2 ABG Hemoglobin ABG Oxyhemoglobin ABG pO2 ABG HCO3 ABG O2 Saturation ABG Base Excess ABG Potassium ABG Chloride ABG Glucose Oxyhemoglobin Sodium Potassium Chloride Carbon Dioxide BUN Creatinine Glucose POC Glucose 228 H 130 H Lactic Acid Calcium AST Phosphorus Total Protein Albumin C-Reactive Protein Arterial Blood Glucose Arterial Blood Ionized Calcium Urine WBC (Auto) Crossmatch 01/16/20 01/16/20 01/16/20 09:52 12:49 17:30 WBC RBC Hgb Hct MCHC RDW Plt Count MCH Lymph % (Auto) Lymph # Lymph # (Auto) Seg Neutrophils % Seg Neuts % (Manual) Lymphocytes % (Manual) Seg Neutrophils # Seg Neutrophils # Man Nucleated RBC % Lymphocytes # (Manual) Monocytes # (Manual) PT INR Heparin Anti-Xa Level POC ABG pO2 ABG pH POC ABG pCO2 ABG Hemoglobin ABG Oxyhemoglobin ABG pO2 ABG HCO3 ABG O2 Saturation ABG Base Excess ABG Potassium ABG Chloride ABG Glucose Oxyhemoglobin Sodium Potassium Chloride Carbon Dioxide BUN Creatinine Glucose POC Glucose 122 H 142 H 192 H Lactic Acid Calcium AST Phosphorus Total Protein Albumin C-Reactive Protein Arterial Blood Glucose Arterial Blood Ionized Calcium Urine WBC (Auto) Crossmatch 01/16/20 01/17/20 01/17/20 23:01 08:36 08:36 WBC 12.7 H RBC 2.98 L Hgb 8.9 L Hct 26.4 L MCHC RDW Plt Count MCH Lymph % (Auto) 8.8 L Lymph # 1.1 L Lymph # (Auto) Seg Neutrophils % 86.7 H Seg Neuts % (Manual) Lymphocytes % (Manual) Seg Neutrophils # 11.0 H Seg Neutrophils # Man Nucleated RBC % Lymphocytes # (Manual) Monocytes # (Manual) PT INR Heparin Anti-Xa Level POC ABG pO2 ABG pH POC ABG pCO2 ABG Hemoglobin ABG Oxyhemoglobin ABG pO2 ABG HCO3 ABG O2 Saturation ABG Base Excess ABG Potassium ABG Chloride ABG Glucose Oxyhemoglobin Sodium Potassium 3.3 L D Chloride Carbon Dioxide BUN Creatinine 0.4 L Glucose POC Glucose 141 H Lactic Acid Calcium 8.1 L AST Phosphorus Total Protein 4.6 L Albumin 1.6 L C-Reactive Protein Arterial Blood Glucose Arterial Blood Ionized Calcium Urine WBC (Auto) Crossmatch 01/17/20 01/17/20 01/18/20 11:43 23:56 06:27 WBC RBC Hgb Hct MCHC RDW Plt Count MCH Lymph % (Auto) Lymph # Lymph # (Auto) Seg Neutrophils % Seg Neuts % (Manual) Lymphocytes % (Manual) Seg Neutrophils # Seg Neutrophils # Man Nucleated RBC % Lymphocytes # (Manual) Monocytes # (Manual) PT INR Heparin Anti-Xa Level POC ABG pO2 ABG pH POC ABG pCO2 ABG Hemoglobin ABG Oxyhemoglobin ABG pO2 ABG HCO3 ABG O2 Saturation ABG Base Excess ABG Potassium ABG Chloride ABG Glucose Oxyhemoglobin Sodium Potassium Chloride Carbon Dioxide BUN Creatinine Glucose POC Glucose 137 H 215 H 122 H Lactic Acid Calcium AST Phosphorus Total Protein Albumin C-Reactive Protein Arterial Blood Glucose Arterial Blood Ionized Calcium Urine WBC (Auto) Crossmatch 01/18/20 01/18/20 01/18/20 07:31 07:31 11:39 WBC 12.1 H RBC 3.23 L Hgb 9.7 L Hct 28.7 L MCHC RDW Plt Count MCH Lymph % (Auto) 9.2 L Lymph # 1.1 L Lymph # (Auto) Seg Neutrophils % 85.0 H Seg Neuts % (Manual) Lymphocytes % (Manual) Seg Neutrophils # 10.3 H Seg Neutrophils # Man Nucleated RBC % Lymphocytes # (Manual) Monocytes # (Manual) PT INR Heparin Anti-Xa Level POC ABG pO2 ABG pH POC ABG pCO2 ABG Hemoglobin ABG Oxyhemoglobin ABG pO2 ABG HCO3 ABG O2 Saturation ABG Base Excess ABG Potassium ABG Chloride ABG Glucose Oxyhemoglobin Sodium Potassium Chloride Carbon Dioxide BUN Creatinine 0.4 L Glucose 108 H POC Glucose 172 H Lactic Acid Calcium AST Phosphorus Total Protein 5.3 L Albumin 2.1 L C-Reactive Protein Arterial Blood Glucose Arterial Blood Ionized Calcium Urine WBC (Auto) Crossmatch 01/18/20 01/19/20 01/19/20 18:22 00:15 11:30 WBC RBC Hgb Hct MCHC RDW Plt Count MCH Lymph % (Auto) Lymph # Lymph # (Auto) Seg Neutrophils % Seg Neuts % (Manual) Lymphocytes % (Manual) Seg Neutrophils # Seg Neutrophils # Man Nucleated RBC % Lymphocytes # (Manual) Monocytes # (Manual) PT INR Heparin Anti-Xa Level POC ABG pO2 ABG pH POC ABG pCO2 ABG Hemoglobin ABG Oxyhemoglobin ABG pO2 ABG HCO3 ABG O2 Saturation ABG Base Excess ABG Potassium ABG Chloride ABG Glucose Oxyhemoglobin Sodium Potassium Chloride Carbon Dioxide BUN Creatinine Glucose POC Glucose 119 H 135 H 163 H Lactic Acid Calcium AST Phosphorus Total Protein Albumin C-Reactive Protein Arterial Blood Glucose Arterial Blood Ionized Calcium Urine WBC (Auto) Crossmatch 01/19/20 01/19/20 01/20/20 17:44 22:59 03:44 WBC 11.1 H RBC 2.77 L Hgb 8.4 L Hct 25.0 L MCHC RDW Plt Count MCH Lymph % (Auto) Lymph # Lymph # (Auto) Seg Neutrophils % 74.6 H Seg Neuts % (Manual) Lymphocytes % (Manual) Seg Neutrophils # 8.3 H Seg Neutrophils # Man Nucleated RBC % Lymphocytes # (Manual) Monocytes # (Manual) PT INR Heparin Anti-Xa Level POC ABG pO2 ABG pH POC ABG pCO2 ABG Hemoglobin ABG Oxyhemoglobin ABG pO2 ABG HCO3 ABG O2 Saturation ABG Base Excess ABG Potassium ABG Chloride ABG Glucose Oxyhemoglobin Sodium Potassium Chloride Carbon Dioxide BUN Creatinine Glucose POC Glucose 161 H 182 H Lactic Acid Calcium AST Phosphorus Total Protein Albumin C-Reactive Protein Arterial Blood Glucose Arterial Blood Ionized Calcium Urine WBC (Auto) Crossmatch 01/20/20 01/21/20 01/21/20 03:44 00:07 05:51 WBC RBC 2.84 L Hgb 8.6 L Hct 25.5 L MCHC RDW Plt Count 463 H MCH Lymph % (Auto) Lymph # Lymph # (Auto) Seg Neutrophils % 76.9 H Seg Neuts % (Manual) Lymphocytes % (Manual) Seg Neutrophils # 7.8 H Seg Neutrophils # Man Nucleated RBC % Lymphocytes # (Manual) Monocytes # (Manual) PT INR Heparin Anti-Xa Level POC ABG pO2 ABG pH POC ABG pCO2 ABG Hemoglobin ABG Oxyhemoglobin ABG pO2 ABG HCO3 ABG O2 Saturation ABG Base Excess ABG Potassium ABG Chloride ABG Glucose Oxyhemoglobin Sodium Potassium Chloride Carbon Dioxide BUN Creatinine 0.4 L Glucose POC Glucose 68 L Lactic Acid Calcium 7.9 L AST Phosphorus Total Protein 4.7 L Albumin 1.9 L C-Reactive Protein Arterial Blood Glucose Arterial Blood Ionized Calcium Urine WBC (Auto) Crossmatch 01/21/20 01/21/20 01/21/20 05:51 05:58 11:25 WBC RBC Hgb Hct MCHC RDW Plt Count MCH Lymph % (Auto) Lymph # Lymph # (Auto) Seg Neutrophils % Seg Neuts % (Manual) Lymphocytes % (Manual) Seg Neutrophils # Seg Neutrophils # Man Nucleated RBC % Lymphocytes # (Manual) Monocytes # (Manual) PT INR Heparin Anti-Xa Level POC ABG pO2 ABG pH POC ABG pCO2 ABG Hemoglobin ABG Oxyhemoglobin ABG pO2 ABG HCO3 ABG O2 Saturation ABG Base Excess ABG Potassium ABG Chloride ABG Glucose Oxyhemoglobin Sodium Potassium Chloride Carbon Dioxide 20 L BUN Creatinine 0.5 L Glucose 130 H POC Glucose 185 H 163 H Lactic Acid Calcium 7.6 L AST Phosphorus Total Protein 5.0 L Albumin 1.9 L C-Reactive Protein Arterial Blood Glucose Arterial Blood Ionized Calcium Urine WBC (Auto) Crossmatch 01/21/20 01/21/20 01/22/20 16:22 21:17 01:28 WBC RBC 2.60 L Hgb 8.0 L Hct 23.3 L MCHC RDW Plt Count MCH Lymph % (Auto) Lymph # Lymph # (Auto) Seg Neutrophils % 74.8 H Seg Neuts % (Manual) Lymphocytes % (Manual) Seg Neutrophils # Seg Neutrophils # Man Nucleated RBC % Lymphocytes # (Manual) Monocytes # (Manual) PT INR Heparin Anti-Xa Level POC ABG pO2 ABG pH POC ABG pCO2 ABG Hemoglobin ABG Oxyhemoglobin ABG pO2 ABG HCO3 ABG O2 Saturation ABG Base Excess ABG Potassium ABG Chloride ABG Glucose Oxyhemoglobin Sodium Potassium Chloride Carbon Dioxide BUN Creatinine Glucose POC Glucose 177 H 67 L Lactic Acid Calcium AST Phosphorus Total Protein Albumin C-Reactive Protein Arterial Blood Glucose Arterial Blood Ionized Calcium Urine WBC (Auto) Crossmatch 01/22/20 01/22/20 01/22/20 01:28 01:28 12:06 WBC RBC Hgb Hct MCHC RDW Plt Count MCH Lymph % (Auto) Lymph # Lymph # (Auto) Seg Neutrophils % Seg Neuts % (Manual) Lymphocytes % (Manual) Seg Neutrophils # Seg Neutrophils # Man Nucleated RBC % Lymphocytes # (Manual) Monocytes # (Manual) PT INR Heparin Anti-Xa Level POC ABG pO2 ABG pH POC ABG pCO2 ABG Hemoglobin ABG Oxyhemoglobin ABG pO2 ABG HCO3 ABG O2 Saturation ABG Base Excess ABG Potassium ABG Chloride ABG Glucose Oxyhemoglobin Sodium Potassium Chloride 107.6 H Carbon Dioxide BUN Creatinine 0.4 L Glucose 152 H POC Glucose 203 H 140 H Lactic Acid Calcium 7.5 L AST Phosphorus Total Protein 4.0 L Albumin 2.0 L C-Reactive Protein Arterial Blood Glucose Arterial Blood Ionized Calcium Urine WBC (Auto) Crossmatch 01/22/20 01/22/20 01/23/20 16:24 22:55 06:10 WBC RBC 2.68 L Hgb 8.6 L Hct 24.1 L MCHC 36 H RDW Plt Count MCH Lymph % (Auto) Lymph # Lymph # (Auto) Seg Neutrophils % Seg Neuts % (Manual) 71.0 H Lymphocytes % (Manual) Seg Neutrophils # Seg Neutrophils # Man Nucleated RBC % Lymphocytes # (Manual) Monocytes # (Manual) PT INR Heparin Anti-Xa Level POC ABG pO2 ABG pH POC ABG pCO2 ABG Hemoglobin ABG Oxyhemoglobin ABG pO2 ABG HCO3 ABG O2 Saturation ABG Base Excess ABG Potassium ABG Chloride ABG Glucose Oxyhemoglobin Sodium Potassium Chloride Carbon Dioxide BUN Creatinine Glucose POC Glucose 205 H 196 H Lactic Acid Calcium AST Phosphorus Total Protein Albumin C-Reactive Protein Arterial Blood Glucose Arterial Blood Ionized Calcium Urine WBC (Auto) Crossmatch 01/23/20 01/23/20 01/23/20 06:10 07:35 11:59 WBC RBC Hgb Hct MCHC RDW Plt Count MCH Lymph % (Auto) Lymph # Lymph # (Auto) Seg Neutrophils % Seg Neuts % (Manual) Lymphocytes % (Manual) Seg Neutrophils # Seg Neutrophils # Man Nucleated RBC % Lymphocytes # (Manual) Monocytes # (Manual) PT INR Heparin Anti-Xa Level POC ABG pO2 ABG pH POC ABG pCO2 ABG Hemoglobin ABG Oxyhemoglobin ABG pO2 ABG HCO3 ABG O2 Saturation ABG Base Excess ABG Potassium ABG Chloride ABG Glucose Oxyhemoglobin Sodium Potassium Chloride 108.8 H Carbon Dioxide BUN Creatinine 0.4 L Glucose 105 H POC Glucose 111 H 123 H Lactic Acid Calcium 8.0 L AST Phosphorus Total Protein 4.9 L D Albumin 2.0 L C-Reactive Protein Arterial Blood Glucose Arterial Blood Ionized Calcium Urine WBC (Auto) Crossmatch 01/23/20 01/24/20 01/24/20 22:45 11:24 16:41 WBC RBC Hgb Hct MCHC RDW Plt Count MCH Lymph % (Auto) Lymph # Lymph # (Auto) Seg Neutrophils % Seg Neuts % (Manual) Lymphocytes % (Manual) Seg Neutrophils # Seg Neutrophils # Man Nucleated RBC % Lymphocytes # (Manual) Monocytes # (Manual) PT INR Heparin Anti-Xa Level POC ABG pO2 ABG pH POC ABG pCO2 ABG Hemoglobin ABG Oxyhemoglobin ABG pO2 ABG HCO3 ABG O2 Saturation ABG Base Excess ABG Potassium ABG Chloride ABG Glucose Oxyhemoglobin Sodium Potassium Chloride Carbon Dioxide BUN Creatinine Glucose POC Glucose 180 H 182 H 177 H Lactic Acid Calcium AST Phosphorus Total Protein Albumin C-Reactive Protein Arterial Blood Glucose Arterial Blood Ionized Calcium Urine WBC (Auto) Crossmatch 01/24/20 01/25/20 01/25/20 23:11 07:12 11:35 WBC RBC Hgb Hct MCHC RDW Plt Count MCH Lymph % (Auto) Lymph # Lymph # (Auto) Seg Neutrophils % Seg Neuts % (Manual) Lymphocytes % (Manual) Seg Neutrophils # Seg Neutrophils # Man Nucleated RBC % Lymphocytes # (Manual) Monocytes # (Manual) PT INR Heparin Anti-Xa Level POC ABG pO2 ABG pH POC ABG pCO2 ABG Hemoglobin ABG Oxyhemoglobin ABG pO2 ABG HCO3 ABG O2 Saturation ABG Base Excess ABG Potassium ABG Chloride ABG Glucose Oxyhemoglobin Sodium Potassium Chloride Carbon Dioxide BUN Creatinine Glucose POC Glucose 142 H 135 H 142 H Lactic Acid Calcium AST Phosphorus Total Protein Albumin C-Reactive Protein Arterial Blood Glucose Arterial Blood Ionized Calcium Urine WBC (Auto) Crossmatch 01/25/20 01/26/20 01/26/20 16:33 00:04 11:35 WBC RBC Hgb Hct MCHC RDW Plt Count MCH Lymph % (Auto) Lymph # Lymph # (Auto) Seg Neutrophils % Seg Neuts % (Manual) Lymphocytes % (Manual) Seg Neutrophils # Seg Neutrophils # Man Nucleated RBC % Lymphocytes # (Manual) Monocytes # (Manual) PT INR Heparin Anti-Xa Level POC ABG pO2 ABG pH POC ABG pCO2 ABG Hemoglobin ABG Oxyhemoglobin ABG pO2 ABG HCO3 ABG O2 Saturation ABG Base Excess ABG Potassium ABG Chloride ABG Glucose Oxyhemoglobin Sodium Potassium Chloride Carbon Dioxide BUN Creatinine Glucose POC Glucose 247 H 233 H 200 H Lactic Acid Calcium AST Phosphorus Total Protein Albumin C-Reactive Protein Arterial Blood Glucose Arterial Blood Ionized Calcium Urine WBC (Auto) Crossmatch 01/26/20 01/26/20 01/26/20 16:30 16:30 17:19 WBC RBC Hgb 7.4 L Hct 22.0 L MCHC RDW Plt Count MCH Lymph % (Auto) Lymph # Lymph # (Auto) Seg Neutrophils % Seg Neuts % (Manual) Lymphocytes % (Manual) Seg Neutrophils # Seg Neutrophils # Man Nucleated RBC % Lymphocytes # (Manual) Monocytes # (Manual) PT 18.4 H INR 1.50 H Heparin Anti-Xa Level POC ABG pO2 ABG pH POC ABG pCO2 ABG Hemoglobin ABG Oxyhemoglobin ABG pO2 ABG HCO3 ABG O2 Saturation ABG Base Excess ABG Potassium ABG Chloride ABG Glucose Oxyhemoglobin Sodium Potassium Chloride Carbon Dioxide BUN Creatinine Glucose POC Glucose 67 L Lactic Acid Calcium AST Phosphorus Total Protein Albumin C-Reactive Protein Arterial Blood Glucose Arterial Blood Ionized Calcium Urine WBC (Auto) Crossmatch 01/26/20 01/26/20 01/27/20 20:24 21:32 00:16 WBC RBC Hgb Hct MCHC RDW Plt Count MCH Lymph % (Auto) Lymph # Lymph # (Auto) Seg Neutrophils % Seg Neuts % (Manual) Lymphocytes % (Manual) Seg Neutrophils # Seg Neutrophils # Man Nucleated RBC % Lymphocytes # (Manual) Monocytes # (Manual) PT INR Heparin Anti-Xa Level POC ABG pO2 51.8 L ABG pH POC ABG pCO2 ABG Hemoglobin 8.5 L ABG Oxyhemoglobin 84.7 L ABG pO2 ABG HCO3 ABG O2 Saturation ABG Base Excess ABG Potassium ABG Chloride ABG Glucose Oxyhemoglobin Sodium Potassium Chloride Carbon Dioxide BUN Creatinine Glucose POC Glucose 162 H 141 H Lactic Acid Calcium AST Phosphorus Total Protein Albumin C-Reactive Protein Arterial Blood Glucose Arterial Blood Ionized Calcium Urine WBC (Auto) Crossmatch 01/27/20 01/27/20 01/27/20 01:42 02:18 05:57 WBC RBC Hgb Hct MCHC RDW Plt Count MCH Lymph % (Auto) Lymph # Lymph # (Auto) Seg Neutrophils % Seg Neuts % (Manual) Lymphocytes % (Manual) Seg Neutrophils # Seg Neutrophils # Man Nucleated RBC % Lymphocytes # (Manual) Monocytes # (Manual) PT INR Heparin Anti-Xa Level 2.00 H POC ABG pO2 ABG pH POC ABG pCO2 ABG Hemoglobin ABG Oxyhemoglobin ABG pO2 ABG HCO3 ABG O2 Saturation ABG Base Excess ABG Potassium ABG Chloride ABG Glucose Oxyhemoglobin Sodium Potassium Chloride Carbon Dioxide BUN Creatinine Glucose POC Glucose 183 H 124 H Lactic Acid Calcium AST Phosphorus Total Protein Albumin C-Reactive Protein Arterial Blood Glucose Arterial Blood Ionized Calcium Urine WBC (Auto) Crossmatch 01/27/20 01/27/20 01/27/20 06:30 06:30 12:23 WBC RBC 2.75 L Hgb 8.4 L Hct 24.9 L MCHC RDW 16.0 H Plt Count 474 H MCH Lymph % (Auto) 12.7 L Lymph # Lymph # (Auto) Seg Neutrophils % 83.2 H Seg Neuts % (Manual) Lymphocytes % (Manual) Seg Neutrophils # 8.4 H Seg Neutrophils # Man Nucleated RBC % Lymphocytes # (Manual) Monocytes # (Manual) PT INR Heparin Anti-Xa Level POC ABG pO2 ABG pH POC ABG pCO2 ABG Hemoglobin ABG Oxyhemoglobin ABG pO2 ABG HCO3 ABG O2 Saturation ABG Base Excess ABG Potassium ABG Chloride ABG Glucose Oxyhemoglobin Sodium Potassium 3.5 L Chloride 110.2 H Carbon Dioxide BUN Creatinine 0.4 L Glucose 101 H POC Glucose 126 H Lactic Acid Calcium 7.8 L AST Phosphorus Total Protein Albumin C-Reactive Protein Arterial Blood Glucose Arterial Blood Ionized Calcium Urine WBC (Auto) Crossmatch 01/27/20 01/27/20 01/28/20 17:31 23:40 00:00 WBC RBC Hgb Hct MCHC RDW Plt Count MCH Lymph % (Auto) Lymph # Lymph # (Auto) Seg Neutrophils % Seg Neuts % (Manual) Lymphocytes % (Manual) Seg Neutrophils # Seg Neutrophils # Man Nucleated RBC % Lymphocytes # (Manual) Monocytes # (Manual) PT INR Heparin Anti-Xa Level 2.00 H POC ABG pO2 ABG pH POC ABG pCO2 ABG Hemoglobin ABG Oxyhemoglobin ABG pO2 ABG HCO3 ABG O2 Saturation ABG Base Excess ABG Potassium ABG Chloride ABG Glucose Oxyhemoglobin Sodium Potassium Chloride Carbon Dioxide BUN Creatinine Glucose POC Glucose 133 H 136 H Lactic Acid Calcium AST Phosphorus Total Protein Albumin C-Reactive Protein Arterial Blood Glucose Arterial Blood Ionized Calcium Urine WBC (Auto) Crossmatch 01/28/20 01/28/20 01/28/20 04:26 04:26 05:35 WBC RBC Hgb 9.6 L Hct 28.5 L MCHC RDW Plt Count 508 H MCH Lymph % (Auto) Lymph # Lymph # (Auto) Seg Neutrophils % Seg Neuts % (Manual) Lymphocytes % (Manual) Seg Neutrophils # Seg Neutrophils # Man Nucleated RBC % Lymphocytes # (Manual) Monocytes # (Manual) PT INR Heparin Anti-Xa Level POC ABG pO2 ABG pH POC ABG pCO2 ABG Hemoglobin ABG Oxyhemoglobin ABG pO2 ABG HCO3 ABG O2 Saturation ABG Base Excess ABG Potassium ABG Chloride ABG Glucose Oxyhemoglobin Sodium Potassium Chloride Carbon Dioxide 19 L BUN 20 H Creatinine 0.5 L Glucose 103 H POC Glucose 135 H Lactic Acid Calcium 7.9 L AST Phosphorus Total Protein Albumin C-Reactive Protein Arterial Blood Glucose Arterial Blood Ionized Calcium Urine WBC (Auto) Crossmatch 01/28/20 01/28/20 01/28/20 08:50 11:10 11:51 WBC RBC Hgb Hct MCHC RDW Plt Count MCH Lymph % (Auto) Lymph # Lymph # (Auto) Seg Neutrophils % Seg Neuts % (Manual) Lymphocytes % (Manual) Seg Neutrophils # Seg Neutrophils # Man Nucleated RBC % Lymphocytes # (Manual) Monocytes # (Manual) PT INR Heparin Anti-Xa Level 0.74 H POC ABG pO2 67.2 L ABG pH POC ABG pCO2 ABG Hemoglobin 9.3 L ABG Oxyhemoglobin ABG pO2 ABG HCO3 ABG O2 Saturation ABG Base Excess ABG Potassium ABG Chloride ABG Glucose Oxyhemoglobin Sodium Potassium Chloride Carbon Dioxide BUN Creatinine Glucose POC Glucose 160 H Lactic Acid Calcium AST Phosphorus Total Protein Albumin C-Reactive Protein Arterial Blood Glucose Arterial Blood Ionized Calcium Urine WBC (Auto) Crossmatch 01/28/20 01/28/20 01/29/20 17:19 23:53 03:52 WBC RBC Hgb Hct MCHC RDW Plt Count MCH Lymph % (Auto) Lymph # Lymph # (Auto) Seg Neutrophils % Seg Neuts % (Manual) Lymphocytes % (Manual) Seg Neutrophils # Seg Neutrophils # Man Nucleated RBC % Lymphocytes # (Manual) Monocytes # (Manual) PT INR Heparin Anti-Xa Level POC ABG pO2 ABG pH 7.510 H POC ABG pCO2 ABG Hemoglobin 7.3 L ABG Oxyhemoglobin ABG pO2 357.0 H ABG HCO3 19.6 L ABG O2 Saturation 99.6 H ABG Base Excess -2.9 L ABG Potassium ABG Chloride ABG Glucose Oxyhemoglobin Sodium Potassium Chloride Carbon Dioxide BUN Creatinine Glucose POC Glucose 177 H 142 H Lactic Acid Calcium AST Phosphorus Total Protein Albumin C-Reactive Protein Arterial Blood Glucose Arterial Blood Ionized Calcium Urine WBC (Auto) Crossmatch 01/29/20 01/29/20 01/29/20 04:58 04:58 06:01 WBC 13.1 H RBC 2.75 L Hgb 8.6 L Hct 25.6 L MCHC RDW 17.7 H Plt Count MCH Lymph % (Auto) Lymph # Lymph # (Auto) Seg Neutrophils % Seg Neuts % (Manual) 91.0 H Lymphocytes % (Manual) 6.0 L Seg Neutrophils # Seg Neutrophils # Man 11.9 H Nucleated RBC % 1.0 H Lymphocytes # (Manual) 0.8 L Monocytes # (Manual) PT INR Heparin Anti-Xa Level POC ABG pO2 ABG pH POC ABG pCO2 ABG Hemoglobin ABG Oxyhemoglobin ABG pO2 ABG HCO3 ABG O2 Saturation ABG Base Excess ABG Potassium ABG Chloride ABG Glucose Oxyhemoglobin Sodium 148 H Potassium 3.5 L D Chloride 113.2 H Carbon Dioxide 21 L BUN 20 H Creatinine Glucose 137 H POC Glucose 167 H Lactic Acid Calcium 8.1 L AST Phosphorus Total Protein Albumin C-Reactive Protein Arterial Blood Glucose Arterial Blood Ionized Calcium Urine WBC (Auto) Crossmatch 01/29/20 01/29/20 01/29/20 11:45 17:52 23:49 WBC RBC Hgb Hct MCHC RDW Plt Count MCH Lymph % (Auto) Lymph # Lymph # (Auto) Seg Neutrophils % Seg Neuts % (Manual) Lymphocytes % (Manual) Seg Neutrophils # Seg Neutrophils # Man Nucleated RBC % Lymphocytes # (Manual) Monocytes # (Manual) PT INR Heparin Anti-Xa Level POC ABG pO2 ABG pH POC ABG pCO2 ABG Hemoglobin ABG Oxyhemoglobin ABG pO2 ABG HCO3 ABG O2 Saturation ABG Base Excess ABG Potassium ABG Chloride ABG Glucose Oxyhemoglobin Sodium Potassium Chloride Carbon Dioxide BUN Creatinine Glucose POC Glucose 185 H 226 H 141 H Lactic Acid Calcium AST Phosphorus Total Protein Albumin C-Reactive Protein Arterial Blood Glucose Arterial Blood Ionized Calcium Urine WBC (Auto) Crossmatch 01/29/20 01/30/20 01/30/20 Unknown 03:24 04:00 WBC RBC Hgb 7.8 L Hct 23.5 L MCHC RDW Plt Count MCH Lymph % (Auto) Lymph # Lymph # (Auto) Seg Neutrophils % Seg Neuts % (Manual) Lymphocytes % (Manual) Seg Neutrophils # Seg Neutrophils # Man Nucleated RBC % Lymphocytes # (Manual) Monocytes # (Manual) PT INR Heparin Anti-Xa Level POC ABG pO2 ABG pH 7.485 H POC ABG pCO2 ABG Hemoglobin 6.7 L ABG Oxyhemoglobin ABG pO2 102.0 H ABG HCO3 ABG O2 Saturation ABG Base Excess ABG Potassium ABG Chloride ABG Glucose Oxyhemoglobin Sodium Potassium Chloride Carbon Dioxide BUN Creatinine Glucose POC Glucose Lactic Acid Calcium AST Phosphorus Total Protein Albumin C-Reactive Protein 14.80 H Arterial Blood Glucose Arterial Blood Ionized Calcium Urine WBC (Auto) Crossmatch 01/30/20 01/30/20 01/30/20 05:50 11:15 17:07 WBC RBC Hgb Hct MCHC RDW Plt Count MCH Lymph % (Auto) Lymph # Lymph # (Auto) Seg Neutrophils % Seg Neuts % (Manual) Lymphocytes % (Manual) Seg Neutrophils # Seg Neutrophils # Man Nucleated RBC % Lymphocytes # (Manual) Monocytes # (Manual) PT INR Heparin Anti-Xa Level POC ABG pO2 ABG pH POC ABG pCO2 ABG Hemoglobin ABG Oxyhemoglobin ABG pO2 ABG HCO3 ABG O2 Saturation ABG Base Excess ABG Potassium ABG Chloride ABG Glucose Oxyhemoglobin Sodium Potassium Chloride Carbon Dioxide BUN Creatinine Glucose POC Glucose 122 H 207 H 124 H Lactic Acid Calcium AST Phosphorus Total Protein Albumin C-Reactive Protein Arterial Blood Glucose Arterial Blood Ionized Calcium Urine WBC (Auto) Crossmatch 01/30/20 01/31/20 01/31/20 17:08 00:10 04:52 WBC RBC Hgb Hct MCHC RDW Plt Count MCH Lymph % (Auto) Lymph # Lymph # (Auto) Seg Neutrophils % Seg Neuts % (Manual) Lymphocytes % (Manual) Seg Neutrophils # Seg Neutrophils # Man Nucleated RBC % Lymphocytes # (Manual) Monocytes # (Manual) PT INR Heparin Anti-Xa Level POC ABG pO2 ABG pH 7.504 H 7.486 H POC ABG pCO2 ABG Hemoglobin 7.4 L 6.2 L ABG Oxyhemoglobin ABG pO2 169.2 H 121.7 H ABG HCO3 27.1 H ABG O2 Saturation 99.1 H ABG Base Excess 3.4 H ABG Potassium ABG Chloride ABG Glucose Oxyhemoglobin Sodium Potassium Chloride Carbon Dioxide BUN Creatinine Glucose POC Glucose 191 H Lactic Acid Calcium AST Phosphorus Total Protein Albumin C-Reactive Protein Arterial Blood Glucose Arterial Blood Ionized Calcium Urine WBC (Auto) Crossmatch 01/31/20 01/31/20 01/31/20 05:37 11:59 12:40 WBC RBC 2.41 L Hgb 7.5 L Hct 22.3 L MCHC RDW 22.2 H Plt Count MCH Lymph % (Auto) Lymph # Lymph # (Auto) Seg Neutrophils % Seg Neuts % (Manual) 94.0 H Lymphocytes % (Manual) 2.0 L Seg Neutrophils # Seg Neutrophils # Man 9.4 H Nucleated RBC % Lymphocytes # (Manual) 0.2 L Monocytes # (Manual) PT INR Heparin Anti-Xa Level POC ABG pO2 ABG pH POC ABG pCO2 ABG Hemoglobin ABG Oxyhemoglobin ABG pO2 ABG HCO3 ABG O2 Saturation ABG Base Excess ABG Potassium ABG Chloride ABG Glucose Oxyhemoglobin Sodium Potassium Chloride Carbon Dioxide BUN Creatinine Glucose POC Glucose 175 H 220 H Lactic Acid Calcium AST Phosphorus Total Protein Albumin C-Reactive Protein Arterial Blood Glucose Arterial Blood Ionized Calcium Urine WBC (Auto) Crossmatch 01/31/20 01/31/20 01/31/20 12:40 14:40 18:18 WBC RBC Hgb Hct MCHC RDW Plt Count MCH Lymph % (Auto) Lymph # Lymph # (Auto) Seg Neutrophils % Seg Neuts % (Manual) Lymphocytes % (Manual) Seg Neutrophils # Seg Neutrophils # Man Nucleated RBC % Lymphocytes # (Manual) Monocytes # (Manual) PT INR Heparin Anti-Xa Level POC ABG pO2 124.7 H ABG pH 7.542 H POC ABG pCO2 ABG Hemoglobin 7.8 L ABG Oxyhemoglobin ABG pO2 ABG HCO3 ABG O2 Saturation ABG Base Excess ABG Potassium ABG Chloride ABG Glucose Oxyhemoglobin Sodium 151 H Potassium 2.1 L* D Chloride 108.9 H Carbon Dioxide BUN 22 H Creatinine Glucose 194 H POC Glucose 181 H Lactic Acid Calcium 8.1 L AST Phosphorus Total Protein 4.8 L Albumin 2.3 L C-Reactive Protein Arterial Blood Glucose Arterial Blood Ionized Calcium Urine WBC (Auto) Crossmatch 02/01/20 02/01/20 02/01/20 00:11 03:14 04:32 WBC 11.9 H RBC 2.47 L Hgb 7.6 L Hct 22.8 L MCHC RDW 22.7 H Plt Count MCH Lymph % (Auto) Lymph # Lymph # (Auto) Seg Neutrophils % Seg Neuts % (Manual) 90.0 H Lymphocytes % (Manual) 5.0 L Seg Neutrophils # Seg Neutrophils # Man 10.7 H Nucleated RBC % Lymphocytes # (Manual) 0.6 L Monocytes # (Manual) PT INR Heparin Anti-Xa Level POC ABG pO2 ABG pH 7.564 H POC ABG pCO2 ABG Hemoglobin 7.6 L ABG Oxyhemoglobin ABG pO2 124.1 H ABG HCO3 29.6 H ABG O2 Saturation ABG Base Excess 7.0 H ABG Potassium ABG Chloride ABG Glucose Oxyhemoglobin Sodium Potassium Chloride Carbon Dioxide BUN Creatinine Glucose POC Glucose 190 H Lactic Acid Calcium AST Phosphorus Total Protein Albumin C-Reactive Protein Arterial Blood Glucose Arterial Blood Ionized Calcium Urine WBC (Auto) Crossmatch 02/01/20 02/01/20 02/01/20 04:32 05:28 11:56 WBC RBC Hgb Hct MCHC RDW Plt Count MCH Lymph % (Auto) Lymph # Lymph # (Auto) Seg Neutrophils % Seg Neuts % (Manual) Lymphocytes % (Manual) Seg Neutrophils # Seg Neutrophils # Man Nucleated RBC % Lymphocytes # (Manual) Monocytes # (Manual) PT INR Heparin Anti-Xa Level POC ABG pO2 ABG pH POC ABG pCO2 ABG Hemoglobin ABG Oxyhemoglobin ABG pO2 ABG HCO3 ABG O2 Saturation ABG Base Excess ABG Potassium ABG Chloride ABG Glucose Oxyhemoglobin Sodium 149 H Potassium 2.6 L* D Chloride Carbon Dioxide 33 H BUN 23 H Creatinine 0.5 L Glucose 174 H POC Glucose 187 H 195 H Lactic Acid Calcium 8.0 L AST Phosphorus 1.60 L Total Protein Albumin C-Reactive Protein Arterial Blood Glucose Arterial Blood Ionized Calcium Urine WBC (Auto) Crossmatch 02/01/20 02/01/20 02/02/20 18:15 23:35 04:33 WBC RBC Hgb Hct MCHC RDW Plt Count MCH Lymph % (Auto) Lymph # Lymph # (Auto) Seg Neutrophils % Seg Neuts % (Manual) Lymphocytes % (Manual) Seg Neutrophils # Seg Neutrophils # Man Nucleated RBC % Lymphocytes # (Manual) Monocytes # (Manual) PT INR Heparin Anti-Xa Level POC ABG pO2 ABG pH 7.549 H POC ABG pCO2 ABG Hemoglobin 9.8 L ABG Oxyhemoglobin ABG pO2 ABG HCO3 ABG O2 Saturation ABG Base Excess ABG Potassium ABG Chloride ABG Glucose Oxyhemoglobin Sodium Potassium Chloride Carbon Dioxide BUN Creatinine Glucose POC Glucose 226 H 252 H Lactic Acid Calcium AST Phosphorus Total Protein Albumin C-Reactive Protein Arterial Blood Glucose Arterial Blood Ionized Calcium Urine WBC (Auto) Crossmatch 02/02/20 02/02/20 02/02/20 05:25 05:25 05:40 WBC 15.5 H RBC 2.43 L Hgb 7.6 L Hct 22.9 L MCHC RDW 23.6 H Plt Count MCH Lymph % (Auto) Lymph # Lymph # (Auto) Seg Neutrophils % Seg Neuts % (Manual) 89.0 H Lymphocytes % (Manual) 3.0 L Seg Neutrophils # Seg Neutrophils # Man 13.8 H Nucleated RBC % Lymphocytes # (Manual) 0.5 L Monocytes # (Manual) 0.9 H PT INR Heparin Anti-Xa Level POC ABG pO2 ABG pH POC ABG pCO2 ABG Hemoglobin ABG Oxyhemoglobin ABG pO2 ABG HCO3 ABG O2 Saturation ABG Base Excess ABG Potassium ABG Chloride ABG Glucose Oxyhemoglobin Sodium Potassium 2.6 L* Chloride Carbon Dioxide 33 H BUN 26 H Creatinine Glucose 175 H POC Glucose 181 H Lactic Acid Calcium 7.9 L AST Phosphorus Total Protein Albumin C-Reactive Protein Arterial Blood Glucose Arterial Blood Ionized Calcium Urine WBC (Auto) Crossmatch 02/02/20 02/02/20 02/02/20 11:55 14:45 17:18 WBC RBC Hgb Hct MCHC RDW Plt Count MCH Lymph % (Auto) Lymph # Lymph # (Auto) Seg Neutrophils % Seg Neuts % (Manual) Lymphocytes % (Manual) Seg Neutrophils # Seg Neutrophils # Man Nucleated RBC % Lymphocytes # (Manual) Monocytes # (Manual) PT INR Heparin Anti-Xa Level POC ABG pO2 ABG pH 7.56 H POC ABG pCO2 ABG Hemoglobin 7.6 L ABG Oxyhemoglobin ABG pO2 ABG HCO3 ABG O2 Saturation ABG Base Excess ABG Potassium ABG Chloride ABG Glucose Oxyhemoglobin Sodium Potassium Chloride Carbon Dioxide BUN Creatinine Glucose POC Glucose 226 H 227 H Lactic Acid Calcium AST Phosphorus Total Protein Albumin C-Reactive Protein Arterial Blood Glucose Arterial Blood Ionized Calcium Urine WBC (Auto) Crossmatch 02/02/20 02/03/20 02/03/20 20:54 00:02 05:14 WBC 18.7 H RBC 2.45 L Hgb 7.6 L Hct 23.2 L MCHC RDW 23.5 H Plt Count MCH Lymph % (Auto) Lymph # Lymph # (Auto) Seg Neutrophils % Seg Neuts % (Manual) 94.0 H Lymphocytes % (Manual) 3.0 L Seg Neutrophils # Seg Neutrophils # Man 17.6 H Nucleated RBC % Lymphocytes # (Manual) 0.6 L Monocytes # (Manual) PT INR Heparin Anti-Xa Level POC ABG pO2 ABG pH POC ABG pCO2 ABG Hemoglobin ABG Oxyhemoglobin ABG pO2 ABG HCO3 ABG O2 Saturation ABG Base Excess ABG Potassium ABG Chloride ABG Glucose Oxyhemoglobin Sodium Potassium 3.2 L D Chloride Carbon Dioxide BUN Creatinine Glucose POC Glucose 204 H Lactic Acid Calcium AST Phosphorus Total Protein Albumin C-Reactive Protein Arterial Blood Glucose Arterial Blood Ionized Calcium Urine WBC (Auto) Crossmatch 02/03/20 02/03/20 02/03/20 05:14 05:14 05:20 WBC RBC Hgb Hct MCHC RDW Plt Count MCH Lymph % (Auto) Lymph # Lymph # (Auto) Seg Neutrophils % Seg Neuts % (Manual) Lymphocytes % (Manual) Seg Neutrophils # Seg Neutrophils # Man Nucleated RBC % Lymphocytes # (Manual) Monocytes # (Manual) PT INR Heparin Anti-Xa Level POC ABG pO2 ABG pH POC ABG pCO2 ABG Hemoglobin ABG Oxyhemoglobin ABG pO2 ABG HCO3 ABG O2 Saturation ABG Base Excess ABG Potassium ABG Chloride ABG Glucose Oxyhemoglobin Sodium Potassium 3.1 L Chloride Carbon Dioxide 33 H BUN 29 H Creatinine 0.5 L Glucose 160 H POC Glucose 146 H Lactic Acid Calcium 7.9 L AST Phosphorus 2.30 L Total Protein 4.8 L Albumin 2.4 L C-Reactive Protein Arterial Blood Glucose Arterial Blood Ionized Calcium Urine WBC (Auto) Crossmatch 02/03/20 02/03/20 02/03/20 12:35 18:14 23:26 WBC RBC Hgb Hct MCHC RDW Plt Count MCH Lymph % (Auto) Lymph # Lymph # (Auto) Seg Neutrophils % Seg Neuts % (Manual) Lymphocytes % (Manual) Seg Neutrophils # Seg Neutrophils # Man Nucleated RBC % Lymphocytes # (Manual) Monocytes # (Manual) PT INR Heparin Anti-Xa Level POC ABG pO2 ABG pH POC ABG pCO2 ABG Hemoglobin ABG Oxyhemoglobin ABG pO2 ABG HCO3 ABG O2 Saturation ABG Base Excess ABG Potassium ABG Chloride ABG Glucose Oxyhemoglobin Sodium Potassium Chloride Carbon Dioxide BUN Creatinine Glucose POC Glucose 219 H 248 H 173 H Lactic Acid Calcium AST Phosphorus Total Protein Albumin C-Reactive Protein Arterial Blood Glucose Arterial Blood Ionized Calcium Urine WBC (Auto) Crossmatch 02/04/20 02/04/20 02/04/20 05:34 05:36 06:51 WBC RBC Hgb Hct MCHC RDW Plt Count MCH Lymph % (Auto) Lymph # Lymph # (Auto) Seg Neutrophils % Seg Neuts % (Manual) Lymphocytes % (Manual) Seg Neutrophils # Seg Neutrophils # Man Nucleated RBC % Lymphocytes # (Manual) Monocytes # (Manual) PT INR Heparin Anti-Xa Level POC ABG pO2 ABG pH POC ABG pCO2 ABG Hemoglobin ABG Oxyhemoglobin ABG pO2 ABG HCO3 ABG O2 Saturation ABG Base Excess ABG Potassium ABG Chloride ABG Glucose Oxyhemoglobin Sodium Potassium Chloride Carbon Dioxide BUN Creatinine Glucose POC Glucose 56 L 64 L 127 H Lactic Acid Calcium AST Phosphorus Total Protein Albumin C-Reactive Protein Arterial Blood Glucose Arterial Blood Ionized Calcium Urine WBC (Auto) Crossmatch 02/04/20 02/04/20 02/04/20 11:57 13:42 13:53 WBC 19.2 H RBC 2.48 L Hgb 7.8 L Hct 23.5 L MCHC RDW 24.2 H Plt Count MCH Lymph % (Auto) Lymph # Lymph # (Auto) Seg Neutrophils % Seg Neuts % (Manual) 97.0 H Lymphocytes % (Manual) 2.0 L Seg Neutrophils # Seg Neutrophils # Man 18.6 H Nucleated RBC % Lymphocytes # (Manual) 0.4 L Monocytes # (Manual) PT INR Heparin Anti-Xa Level POC ABG pO2 118.2 H ABG pH 7.525 H POC ABG pCO2 ABG Hemoglobin 8.7 L ABG Oxyhemoglobin ABG pO2 ABG HCO3 ABG O2 Saturation ABG Base Excess ABG Potassium 2.8 L ABG Chloride ABG Glucose 185 H Oxyhemoglobin Sodium Potassium Chloride Carbon Dioxide BUN Creatinine Glucose POC Glucose 224 H Lactic Acid Calcium AST Phosphorus Total Protein Albumin C-Reactive Protein Arterial Blood Glucose 185 H Arterial Blood Ionized Calcium 4.5 L Urine WBC (Auto) Crossmatch 02/04/20 02/04/20 02/04/20 13:53 18:15 23:35 WBC RBC Hgb Hct MCHC RDW Plt Count MCH Lymph % (Auto) Lymph # Lymph # (Auto) Seg Neutrophils % Seg Neuts % (Manual) Lymphocytes % (Manual) Seg Neutrophils # Seg Neutrophils # Man Nucleated RBC % Lymphocytes # (Manual) Monocytes # (Manual) PT INR Heparin Anti-Xa Level POC ABG pO2 ABG pH POC ABG pCO2 ABG Hemoglobin ABG Oxyhemoglobin ABG pO2 ABG HCO3 ABG O2 Saturation ABG Base Excess ABG Potassium ABG Chloride ABG Glucose Oxyhemoglobin Sodium 147 H Potassium 2.8 L* Chloride Carbon Dioxide 38 H BUN 33 H Creatinine 0.5 L Glucose 202 H POC Glucose 215 H 197 H Lactic Acid Calcium AST Phosphorus Total Protein Albumin C-Reactive Protein Arterial Blood Glucose Arterial Blood Ionized Calcium Urine WBC (Auto) Crossmatch 02/05/20 02/05/20 02/05/20 01:03 04:00 04:00 WBC 26.7 H RBC 2.59 L Hgb 8.1 L Hct 24.6 L MCHC RDW 24.1 H Plt Count MCH Lymph % (Auto) 1.6 L Lymph # Lymph # (Auto) 0.4 L Seg Neutrophils % Seg Neuts % (Manual) Lymphocytes % (Manual) Seg Neutrophils # 25.9 H Seg Neutrophils # Man Nucleated RBC % Lymphocytes # (Manual) Monocytes # (Manual) PT INR Heparin Anti-Xa Level POC ABG pO2 ABG pH POC ABG pCO2 ABG Hemoglobin 7.1 L ABG Oxyhemoglobin ABG pO2 50.7 L ABG HCO3 29.6 H ABG O2 Saturation 82.7 L ABG Base Excess 4.8 H ABG Potassium ABG Chloride ABG Glucose Oxyhemoglobin 81.0 L Sodium 146 H Potassium Chloride Carbon Dioxide 32 H BUN 35 H Creatinine 0.5 L Glucose 226 H POC Glucose Lactic Acid Calcium AST Phosphorus Total Protein 5.1 L Albumin 2.2 L C-Reactive Protein Arterial Blood Glucose Arterial Blood Ionized Calcium Urine WBC (Auto) Crossmatch 02/05/20 02/05/20 02/06/20 05:32 17:56 00:19 WBC RBC Hgb Hct MCHC RDW Plt Count MCH Lymph % (Auto) Lymph # Lymph # (Auto) Seg Neutrophils % Seg Neuts % (Manual) Lymphocytes % (Manual) Seg Neutrophils # Seg Neutrophils # Man Nucleated RBC % Lymphocytes # (Manual) Monocytes # (Manual) PT INR Heparin Anti-Xa Level POC ABG pO2 ABG pH POC ABG pCO2 ABG Hemoglobin ABG Oxyhemoglobin ABG pO2 ABG HCO3 ABG O2 Saturation ABG Base Excess ABG Potassium ABG Chloride ABG Glucose Oxyhemoglobin Sodium Potassium Chloride Carbon Dioxide BUN Creatinine Glucose POC Glucose 239 H 175 H 309 H Lactic Acid Calcium AST Phosphorus Total Protein Albumin C-Reactive Protein Arterial Blood Glucose Arterial Blood Ionized Calcium Urine WBC (Auto) Crossmatch 02/06/20 02/06/20 02/06/20 04:26 04:27 05:11 WBC RBC Hgb Hct MCHC RDW Plt Count MCH Lymph % (Auto) Lymph # Lymph # (Auto) Seg Neutrophils % Seg Neuts % (Manual) Lymphocytes % (Manual) Seg Neutrophils # Seg Neutrophils # Man Nucleated RBC % Lymphocytes # (Manual) Monocytes # (Manual) PT INR Heparin Anti-Xa Level POC ABG pO2 175.3 H 157.2 H ABG pH 7.502 H 7.551 H POC ABG pCO2 ABG Hemoglobin 10.8 L 7.3 L ABG Oxyhemoglobin 98.3 H ABG pO2 ABG HCO3 ABG O2 Saturation ABG Base Excess ABG Potassium 3.3 L ABG Chloride 109.0 H ABG Glucose 148 H Oxyhemoglobin Sodium 148 H Potassium 3.0 L Chloride 107.3 H Carbon Dioxide 33 H BUN 33 H Creatinine 0.5 L Glucose 283 H POC Glucose Lactic Acid Calcium 7.9 L AST Phosphorus Total Protein 3.6 L D Albumin 1.2 L C-Reactive Protein Arterial Blood Glucose 148 H Arterial Blood Ionized Calcium Urine WBC (Auto) Crossmatch 02/06/20 02/06/20 02/06/20 05:40 08:45 11:52 WBC 16.3 H RBC 2.12 L Hgb 6.6 L Hct 20.3 L MCHC RDW 24.4 H Plt Count MCH Lymph % (Auto) Lymph # Lymph # (Auto) Seg Neutrophils % Seg Neuts % (Manual) 98.0 H Lymphocytes % (Manual) 1.0 L Seg Neutrophils # Seg Neutrophils # Man 16.0 H Nucleated RBC % Lymphocytes # (Manual) 0.2 L Monocytes # (Manual) PT INR Heparin Anti-Xa Level POC ABG pO2 ABG pH POC ABG pCO2 ABG Hemoglobin ABG Oxyhemoglobin ABG pO2 ABG HCO3 ABG O2 Saturation ABG Base Excess ABG Potassium ABG Chloride ABG Glucose Oxyhemoglobin Sodium Potassium Chloride Carbon Dioxide BUN Creatinine Glucose POC Glucose 347 H 132 H Lactic Acid Calcium AST Phosphorus Total Protein Albumin C-Reactive Protein Arterial Blood Glucose Arterial Blood Ionized Calcium Urine WBC (Auto) Crossmatch 02/06/20 02/07/20 02/07/20 18:26 00:08 05:41 WBC RBC Hgb Hct MCHC RDW Plt Count MCH Lymph % (Auto) Lymph # Lymph # (Auto) Seg Neutrophils % Seg Neuts % (Manual) Lymphocytes % (Manual) Seg Neutrophils # Seg Neutrophils # Man Nucleated RBC % Lymphocytes # (Manual) Monocytes # (Manual) PT INR Heparin Anti-Xa Level POC ABG pO2 ABG pH POC ABG pCO2 ABG Hemoglobin ABG Oxyhemoglobin ABG pO2 ABG HCO3 ABG O2 Saturation ABG Base Excess ABG Potassium ABG Chloride ABG Glucose Oxyhemoglobin Sodium Potassium Chloride Carbon Dioxide BUN Creatinine Glucose POC Glucose 114 H 111 H 164 H Lactic Acid Calcium AST Phosphorus Total Protein Albumin C-Reactive Protein Arterial Blood Glucose Arterial Blood Ionized Calcium Urine WBC (Auto) Crossmatch 02/07/20 02/07/20 02/07/20 11:49 17:56 23:27 WBC RBC Hgb Hct MCHC RDW Plt Count MCH Lymph % (Auto) Lymph # Lymph # (Auto) Seg Neutrophils % Seg Neuts % (Manual) Lymphocytes % (Manual) Seg Neutrophils # Seg Neutrophils # Man Nucleated RBC % Lymphocytes # (Manual) Monocytes # (Manual) PT INR Heparin Anti-Xa Level POC ABG pO2 ABG pH POC ABG pCO2 ABG Hemoglobin ABG Oxyhemoglobin ABG pO2 ABG HCO3 ABG O2 Saturation ABG Base Excess ABG Potassium ABG Chloride ABG Glucose Oxyhemoglobin Sodium Potassium Chloride Carbon Dioxide BUN Creatinine Glucose POC Glucose 146 H 140 H 164 H Lactic Acid Calcium AST Phosphorus Total Protein Albumin C-Reactive Protein Arterial Blood Glucose Arterial Blood Ionized Calcium Urine WBC (Auto) Crossmatch 02/08/20 02/08/20 02/08/20 03:55 04:46 04:46 WBC RBC 2.30 L Hgb 7.3 L Hct 22.0 L MCHC RDW 23.9 H Plt Count MCH Lymph % (Auto) 8.5 L Lymph # Lymph # (Auto) 0.8 L Seg Neutrophils % 87.6 H Seg Neuts % (Manual) Lymphocytes % (Manual) Seg Neutrophils # 8.7 H Seg Neutrophils # Man Nucleated RBC % Lymphocytes # (Manual) Monocytes # (Manual) PT INR Heparin Anti-Xa Level POC ABG pO2 112.8 H ABG pH 7.511 H POC ABG pCO2 51.2 H ABG Hemoglobin 7.8 L ABG Oxyhemoglobin ABG pO2 ABG HCO3 ABG O2 Saturation ABG Base Excess ABG Potassium ABG Chloride ABG Glucose Oxyhemoglobin Sodium Potassium 3.1 L Chloride Carbon Dioxide 31 H BUN 29 H Creatinine 0.3 L Glucose 108 H POC Glucose Lactic Acid Calcium AST Phosphorus Total Protein Albumin C-Reactive Protein Arterial Blood Glucose Arterial Blood Ionized Calcium Urine WBC (Auto) Crossmatch 02/08/20 02/08/20 02/08/20 05:31 10:15 12:10 WBC RBC Hgb Hct MCHC RDW Plt Count MCH Lymph % (Auto) Lymph # Lymph # (Auto) Seg Neutrophils % Seg Neuts % (Manual) Lymphocytes % (Manual) Seg Neutrophils # Seg Neutrophils # Man Nucleated RBC % Lymphocytes # (Manual) Monocytes # (Manual) PT INR Heparin Anti-Xa Level POC ABG pO2 ABG pH POC ABG pCO2 ABG Hemoglobin ABG Oxyhemoglobin ABG pO2 ABG HCO3 ABG O2 Saturation ABG Base Excess ABG Potassium ABG Chloride ABG Glucose Oxyhemoglobin Sodium Potassium Chloride Carbon Dioxide BUN Creatinine Glucose POC Glucose 117 H 164 H 170 H Lactic Acid Calcium AST Phosphorus Total Protein Albumin C-Reactive Protein Arterial Blood Glucose Arterial Blood Ionized Calcium Urine WBC (Auto) Crossmatch 02/08/20 02/08/20 02/09/20 12:23 23:50 03:04 WBC RBC Hgb Hct MCHC RDW Plt Count MCH Lymph % (Auto) Lymph # Lymph # (Auto) Seg Neutrophils % Seg Neuts % (Manual) Lymphocytes % (Manual) Seg Neutrophils # Seg Neutrophils # Man Nucleated RBC % Lymphocytes # (Manual) Monocytes # (Manual) PT INR Heparin Anti-Xa Level POC ABG pO2 ABG pH 7.501 H POC ABG pCO2 ABG Hemoglobin 7.5 L ABG Oxyhemoglobin ABG pO2 ABG HCO3 ABG O2 Saturation ABG Base Excess ABG Potassium ABG Chloride ABG Glucose 143 H Oxyhemoglobin Sodium Potassium Chloride Carbon Dioxide BUN Creatinine Glucose POC Glucose 164 H 126 H Lactic Acid Calcium AST Phosphorus Total Protein Albumin C-Reactive Protein Arterial Blood Glucose 143 H Arterial Blood Ionized Calcium Urine WBC (Auto) Crossmatch 02/09/20 02/09/20 02/09/20 05:57 08:00 12:39 WBC RBC Hgb Hct MCHC RDW Plt Count MCH Lymph % (Auto) Lymph # Lymph # (Auto) Seg Neutrophils % Seg Neuts % (Manual) Lymphocytes % (Manual) Seg Neutrophils # Seg Neutrophils # Man Nucleated RBC % Lymphocytes # (Manual) Monocytes # (Manual) PT INR Heparin Anti-Xa Level POC ABG pO2 ABG pH POC ABG pCO2 ABG Hemoglobin ABG Oxyhemoglobin ABG pO2 ABG HCO3 ABG O2 Saturation ABG Base Excess ABG Potassium ABG Chloride ABG Glucose Oxyhemoglobin Sodium Potassium 3.3 L Chloride Carbon Dioxide 34 H BUN 27 H Creatinine 0.4 L Glucose 127 H POC Glucose 160 H 154 H Lactic Acid Calcium 8.2 L AST Phosphorus Total Protein Albumin C-Reactive Protein Arterial Blood Glucose Arterial Blood Ionized Calcium Urine WBC (Auto) Crossmatch 02/09/20 02/09/20 02/09/20 18:17 23:43 Unknown WBC RBC 2.15 L Hgb 7.0 L Hct 20.8 L MCHC RDW 23.3 H Plt Count MCH 33 H Lymph % (Auto) Lymph # Lymph # (Auto) Seg Neutrophils % Seg Neuts % (Manual) Lymphocytes % (Manual) Seg Neutrophils # Seg Neutrophils # Man Nucleated RBC % Lymphocytes # (Manual) Monocytes # (Manual) PT INR Heparin Anti-Xa Level POC ABG pO2 ABG pH POC ABG pCO2 ABG Hemoglobin ABG Oxyhemoglobin ABG pO2 ABG HCO3 ABG O2 Saturation ABG Base Excess ABG Potassium ABG Chloride ABG Glucose Oxyhemoglobin Sodium Potassium Chloride Carbon Dioxide BUN Creatinine Glucose POC Glucose 152 H 177 H Lactic Acid Calcium AST Phosphorus Total Protein Albumin C-Reactive Protein Arterial Blood Glucose Arterial Blood Ionized Calcium Urine WBC (Auto) Crossmatch 02/10/20 02/10/20 02/10/20 04:38 05:24 11:44 WBC RBC Hgb Hct MCHC RDW Plt Count MCH Lymph % (Auto) Lymph # Lymph # (Auto) Seg Neutrophils % Seg Neuts % (Manual) Lymphocytes % (Manual) Seg Neutrophils # Seg Neutrophils # Man Nucleated RBC % Lymphocytes # (Manual) Monocytes # (Manual) PT INR Heparin Anti-Xa Level POC ABG pO2 ABG pH 7.502 H POC ABG pCO2 ABG Hemoglobin 6.2 L ABG Oxyhemoglobin ABG pO2 136.0 H ABG HCO3 29.3 H ABG O2 Saturation ABG Base Excess 5.7 H ABG Potassium ABG Chloride ABG Glucose Oxyhemoglobin Sodium Potassium Chloride Carbon Dioxide BUN Creatinine Glucose POC Glucose 113 H 176 H Lactic Acid Calcium AST Phosphorus Total Protein Albumin C-Reactive Protein Arterial Blood Glucose Arterial Blood Ionized Calcium Urine WBC (Auto) Crossmatch 02/10/20 02/11/20 02/11/20 23:42 03:43 04:12 WBC RBC 2.12 L Hgb 6.9 L Hct 20.6 L MCHC RDW 23.4 H Plt Count MCH 33 H Lymph % (Auto) Lymph # Lymph # (Auto) Seg Neutrophils % 84.7 H Seg Neuts % (Manual) 83.0 H Lymphocytes % (Manual) 11.0 L Seg Neutrophils # Seg Neutrophils # Man Nucleated RBC % Lymphocytes # (Manual) 1.0 L Monocytes # (Manual) PT INR Heparin Anti-Xa Level POC ABG pO2 112.6 H ABG pH 7.480 H POC ABG pCO2 ABG Hemoglobin 7.2 L ABG Oxyhemoglobin ABG pO2 ABG HCO3 ABG O2 Saturation ABG Base Excess ABG Potassium ABG Chloride ABG Glucose 154 H Oxyhemoglobin Sodium Potassium Chloride Carbon Dioxide BUN Creatinine Glucose POC Glucose 149 H Lactic Acid Calcium AST Phosphorus Total Protein Albumin C-Reactive Protein Arterial Blood Glucose 154 H Arterial Blood Ionized Calcium Urine WBC (Auto) Crossmatch 02/11/20 02/11/20 02/11/20 04:12 05:50 08:22 WBC RBC Hgb Hct MCHC RDW Plt Count MCH Lymph % (Auto) Lymph # Lymph # (Auto) Seg Neutrophils % Seg Neuts % (Manual) Lymphocytes % (Manual) Seg Neutrophils # Seg Neutrophils # Man Nucleated RBC % Lymphocytes # (Manual) Monocytes # (Manual) PT INR Heparin Anti-Xa Level POC ABG pO2 ABG pH POC ABG pCO2 ABG Hemoglobin ABG Oxyhemoglobin ABG pO2 ABG HCO3 ABG O2 Saturation ABG Base Excess ABG Potassium ABG Chloride ABG Glucose Oxyhemoglobin Sodium 146 H Potassium Chloride Carbon Dioxide BUN 24 H Creatinine 0.4 L Glucose 168 H POC Glucose 190 H Lactic Acid Calcium 8.0 L AST Phosphorus Total Protein Albumin C-Reactive Protein Arterial Blood Glucose Arterial Blood Ionized Calcium Urine WBC (Auto) Crossmatch See Detail Allied health notes reviewed: RT
--- NOTE | 2020-02-11 12:18 | Progress Note ---
Assessment and Plan Cultures: Blood cultures 01/08/2020 MDR Proteus mirabilis. Blood culture 01/12/2020 no growth. Urine culture 01/08/2020 no growth. Tissue culture 01/16/2020 MDR Proteus and enterococcus BAL culture 01/28/2020: normal resp shoshana tracheal aspirate 02/05/2020: normal resp shoshana A/P: 69 years old female with history of diabetes mellitus, pulmonary embolism, dementia, admitted on 01/08/2020 due to altered mental status, lethargy and hypotension. Patient was evaluated by her home health nurse who found her less active and hypotensive: #Septic shock: off pressors. #s/p PEA arrest night of 01/28/2020 and on 02/05/2020 #Proteus bacteremia: Likely from sacral decubitus. Continues on Zosyn. #Unstageable sacral decubitus, infected: Status post or debridement on 01/16/2020, tissue cultures growing MDR Proteus and enterococcus. OR findings extensive fascial necrosis. Dr. Roberts had discussed with Dr Vo likely osteomyelitis. End date for Zosyn is 6 weeks till 02/27/2020. Prognosis however is poor. #UTI #Acute hypoxemic respiratory failure: remains on the vent. Recs:- -continue Zosyn 4.5 g IV every 8 hours, end date is 02/27/2020 -Offloading, wound care and wound VAC per surgery -Prognosis guarded, planned for Trach/PEG on Sunday Braxton Danielle MD FACP Infectious Disease Expert Medical Writer ([facility]) Subjective Date of service: 02/11/20 Principal diagnosis: Septic Shock; S/P Cardiac Arrest; Ac. hypoxemic resp failure; UTI Interval history: Remains on the vent. No fever. Awake Objective - Exam Narrative Exam: Physical Exam: Constitutional: opens eyes, intubated, on the vent Head, Ears, Nose: Normocephalic, atraumatic. External ears, nose normal Eyes: Conjunctivae/corneas clear. No icterus. No ptosis. Neck: intubated Oral: intubated Cardiovascular: S1, S2 normal. Respiratory: AE fair b/l GI: Soft, non-tender, bowel sounds + Musculoskeletal: contractures +, edematous extremities. Skin: sacral wound with wound VAC Hem/Lymphatic: No palpable cervical or supraclavicular nodes. No lymphangitis Psych: no agitation Neurological: awake, doesn't follow commands, intubated, on the vent - Constitutional Vitals: Vital Signs Temp Pulse Resp BP Pulse Ox 97.1 F L 102 H 26 H 120/59 100 02/11/20 08:00 02/11/20 12:08 02/11/20 12:08 02/11/20 12:08 02/11/20 12:08 Temperature -Last 24 Hours Temperature 97.1 F Temperature 97.9 F Temperature 97.9 F Temperature 97.4 F Temperature 97.8 F Temperature 97.8 F - Labs CBC & Chem 7: 02/11/20 04:12 02/11/20 04:12 Labs: Abnormal lab results 02/10/20 02/11/20 02/11/20 Range/Units 23:42 03:43 04:12 RBC 2.12 L (3.65-5.03) M/mm3 Hgb 6.9 L (10.1-14.3) gm/dl Hct 20.6 L (30.3-42.9) % MCH 33 H (28-32) pg RDW 23.4 H (13.2-15.2) % Seg Neutrophils % 84.7 H (40.0-70.0) % Seg Neuts % (Manual) 83.0 H (40.0-70.0) % Lymphocytes % (Manual) 11.0 L (13.4-35.0) % Lymphocytes # (Manual) 1.0 L (1.2-5.4) K/mm3 ABG pH 7.480 H (7.320-7.450) POC ABG pO2 112.6 H (83-108) mmHg ABG Hemoglobin 7.2 L (12.0-17.5) ABG Glucose 154 H (65-95) mg/dL Sodium (137-145) mmol/L BUN (7-17) mg/dL Creatinine (0.6-1.2) mg/dL Glucose (65-100) mg/dL POC Glucose 149 H (70-105) Calcium (8.4-10.2) mg/dL Arterial Blood Glucose 154 H (65-95) mg/dL Crossmatch 02/11/20 02/11/20 02/11/20 Range/Units 04:12 05:50 08:22 RBC (3.65-5.03) M/mm3 Hgb (10.1-14.3) gm/dl Hct (30.3-42.9) % MCH (28-32) pg RDW (13.2-15.2) % Seg Neutrophils % (40.0-70.0) % Seg Neuts % (Manual) (40.0-70.0) % Lymphocytes % (Manual) (13.4-35.0) % Lymphocytes # (Manual) (1.2-5.4) K/mm3 ABG pH (7.320-7.450) POC ABG pO2 (83-108) mmHg ABG Hemoglobin (12.0-17.5) ABG Glucose (65-95) mg/dL Sodium 146 H (137-145) mmol/L BUN 24 H (7-17) mg/dL Creatinine 0.4 L (0.6-1.2) mg/dL Glucose 168 H (65-100) mg/dL POC Glucose 190 H (70-105) Calcium 8.0 L (8.4-10.2) mg/dL Arterial Blood Glucose (65-95) mg/dL Crossmatch See Detail 02/11/20 Range/Units 11:41 RBC (3.65-5.03) M/mm3 Hgb (10.1-14.3) gm/dl Hct (30.3-42.9) % MCH (28-32) pg RDW (13.2-15.2) % Seg Neutrophils % (40.0-70.0) % Seg Neuts % (Manual) (40.0-70.0) % Lymphocytes % (Manual) (13.4-35.0) % Lymphocytes # (Manual) (1.2-5.4) K/mm3 ABG pH (7.320-7.450) POC ABG pO2 (83-108) mmHg ABG Hemoglobin (12.0-17.5) ABG Glucose (65-95) mg/dL Sodium (137-145) mmol/L BUN (7-17) mg/dL Creatinine (0.6-1.2) mg/dL Glucose (65-100) mg/dL POC Glucose 260 H (70-105) Calcium (8.4-10.2) mg/dL Arterial Blood Glucose (65-95) mg/dL Crossmatch
[2020-02-11] MEDS: traZODone 50 MG TAB PO SCH (21:36)
[2020-02-11] MEDS: MIRTAZAPINE 15 MG TAB PO SCH (21:37)
[2020-02-11] MEDS: DONEPEZIL 10 MG TAB PO SCH (21:37)
[2020-02-12] MEDS: INSULIN REGULAR, HUMAN 100 UNIT/ML 3ML VIAL SUB-Q SCH ×4 (00:45→18:33)
[2020-02-12] MEDS: PIPERACIL/TAZOBACTA 4.5/NS 100 4.5 GM/100 ML VIAL IV SCH ×3 (06:27→21:03)
[2020-02-12 07:02] LABS: Hematocrit 25.2 % (30.3-42.9); Hemoglobin 8.6 gm/dl (10.1-14.3)
--- NOTE | 2020-02-12 09:17 | Progress Note ---
Assessment and Plan Assessment and plan: --Acute hypoxic respiratory failure, status post cardiac arrest status post extubation 02/02/2020 but had to be reintubated on 02/04 On mechanical ventilation, unable to wean/vent dependent Surgery evaluated, for possible tracheostomy tomorrow 02/13/2020 N.p.o. status --Anemia ; unknown etiology , no external evidence of bleeding Received 1 unit PRBC transfusion , hemoglobin improved from 6.9-8.6 Closely monitor H&H and transfuse additional PRBC as needed --Shock/ septic shock Monitor off Levophed, supportive care Etiology secondary to infected sacral decubitus ulcer and UTI --Proteus bacteremia: Due to sacral decubitus Long-term Zosyn per ID stop date 02/27/2020[total 6 weeks] --Hypokalemia; resolved Monitor levels and replenish as needed -- Hypernatremia;Free water flushes Monitor levels, adjust management as needed -- Uncontrolled diabetes mellitus; Blood sugars well controlled Accu-Chek sliding scale coverage long-acting insulin as needed DM management with SSI, TF --s/p PEA arrest night of 01/28/2020 and 02/05/2020 s/p CPR per ACLS protocol --Anoxic/hypoxic brain injury[status post PEA cardiac arrest] -- Hydropneumothorax, not POA Patient developed hydropneumothorax on 01/15. Surgery evaluated s/p chest tube placed on 01/15. Improved, s/p chest tube removed 01/22, extubated 02/02/2020 Patient is using nasal cannula oxygen/BiPAP and Ventimask as needed -- large Left pleural effusion 01/25 01/27; s/p bronchoscopy and Therapeutic suctioning of the lungs done by poly operator --Unstageable sacral decubitus ulcer, infected/POA s/p wound debridement on 01/15. Wound vac in place ID recommend zosyn 4.5 g IV q8h total 6 weeks stop date 02/27/2020 -- UTI (urinary tract infection)Completed antibiotics --h/o Bilateral pulmonary embolism 7 months ago CTA chest and LE doppler showed no acute PE or DVT eliquis stopped -- Dementia: Continue donepezil --Severe protein-calorie malnutrition PEG placed 01/13. PEG feeds per protocol --DVT prophylaxis; SCDs Closely monitor the patient and adjust management as needed Plan of care reviewed with the patient and her nurse The high probability of a clinically significant, sudden or life threatening deterioration of the [Respiratory, G[employer]ER, CVs] system(s) required my full and direct attention, intervention and personal management. The aggregate critical care time was [32] minutes. This time is in addition to time spent performing reported procedures but includes the following: [x] Data Review and interpretation [x] Patient assessment and monitoring of vital signs [x] Documentation [x] Medication orders and management . Patient currently with PSV/CPAP FiO2 50%, PEEP of 6 and pressure support of 10. Continue PSV trials as tolerated and wean per pulmonary. Recall ID consultation. 02/08/2020. Patient with Proteus bacteremia likely from sacral decubitus. Continue Zosyn 4.5 g IV every 8 hours until stop date of 02/26. Patient still on mechanical ventilation AC mode rate 12, tidal volume 350, FiO2 30% and PEEP of 6. Poor prognosis. Consider hospice. Continue scopolamine for secretion control. Continue pressors to maintain MAP > 65; currently off. 02/09/2020. Continue Zosyn 4.5 g IV every 8 hours for Proteus bacteremia with end date of 02/27/2020. Continue wound care/wound VAC per surgery. Patient still on mechanical ventilation AC mode rate 12, tidal volume 350, FiO2 30% and PEEP of 6. Poor prognosis. Consider hospice. Continue scopolamine for secretion control. Currently off pressors. 02/09; evaluated by surgery, planning tracheostomy pending COVID test 02/10; possible tracheostomy today pending COVID test, surgery following 02/11; patient n.p.o. from midnight, possible tracheostomy tomorrow Received 1 unit of PRBC, Hb improved to 8.6 History Interval history: I have seen and examined the patient at the bedside this morning Patient's chart and medications reviewed Patient is more alert and awake Remains intubated on ventilatory support Surgery planning tracheostomy tomorrow Hospitalist Physical - Constitutional Vitals: Temp Pulse Resp BP Pulse Ox 97.2 F L 97 H 22 126/65 100 02/12/20 08:00 02/12/20 09:00 02/12/20 09:00 02/12/20 09:00 02/12/20 09:00 General appearance: Present: no acute distress, well-nourished, other (Intubated on vent) - EENT Eyes: Present: PERRL, EOM intact - Neck Neck: Present: supple, normal ROM - Respiratory Respiratory effort: normal Respiratory: bilateral: diminished, rhonchi, negative: rales, wheezing - Cardiovascular Rhythm: regular Heart Sounds: Present: S1 & S2 - Extremities Extremities: no ischemia, No edema - Abdominal General gastrointestinal: soft, non-tender, non-distended, normal bowel sounds, other (PEG in place) - Integumentary Integumentary: Present: clear, warm - Psychiatric Psychiatric: other (Intubated on vent) - Neurologic Neurologic: other (Intubated on vent) Results - Labs CBC & Chem 7: 02/12/20 06:45 02/11/20 04:12 Labs: Laboratory Last Values WBC 9.1 K/mm3 (4.5-11.0) 02/11/20 04:12 RBC 2.12 M/mm3 (3.65-5.03) L 02/11/20 04:12 Hgb 8.6 gm/dl (10.1-14.3) L 02/12/20 06:45 Hct 25.2 % (30.3-42.9) L 02/12/20 06:45 MCV 97 fl (79-97) 02/11/20 04:12 MCH 33 pg (28-32) H 02/11/20 04:12 MCHC 34 % (30-34) 02/11/20 04:12 RDW 23.4 % (13.2-15.2) H 02/11/20 04:12 Plt Count 319 K/mm3 (140-440) 02/11/20 04:12 Lymph % (Auto) 8.5 % (13.4-35.0) L 02/08/20 04:46 [place] % (Auto) 4.2 % (0.0-7.3) 02/11/20 04:12 Eos % (Auto) 0.7 % (0.0-4.3) 02/11/20 04:12 Baso % (Auto) 0.2 % (0.0-1.8) 02/08/20 04:46 Lymph # (Auto) 0.8 K/mm3 (1.2-5.4) L 02/08/20 04:46 [place] # (Auto) 0.4 K/mm3 (0.0-0.8) 02/11/20 04:12 Eos # (Auto) 0.1 K/mm3 (0.0-0.4) 02/11/20 04:12 Baso # (Auto) 0.0 K/mm3 (0.0-0.1) 02/11/20 04:12 Add Manual Diff Complete 02/11/20 04:12 Total Counted 100 02/11/20 04:12 Seg Neutrophils % 84.7 % (40.0-70.0) H 02/11/20 04:12 Seg Neuts % (Manual) 83.0 % (40.0-70.0) H 02/11/20 04:12 Band Neutrophils % 0 % 02/11/20 04:12 Lymphocytes % (Manual) 11.0 % (13.4-35.0) L 02/11/20 04:12 Reactive Lymphs % (Man) 0 % 02/11/20 04:12 Monocytes % (Manual) 5.0 % (0.0-7.3) 02/11/20 04:12 Eosinophils % (Manual) 1.0 % (0.0-4.3) 02/11/20 04:12 Basophils % (Manual) 0 % (0.0-1.8) 02/11/20 04:12 Metamyelocytes % 0 % 02/11/20 04:12 Myelocytes % 0 % 02/11/20 04:12 Promyelocytes % 0 % 02/11/20 04:12 Blast Cells % 0 % 02/11/20 04:12 Nucleated RBC % Not Reportable 02/11/20 04:12 Seg Neutrophils # 7.7 K/mm3 (1.8-7.7) 02/11/20 04:12 Seg Neutrophils # Man 7.6 K/mm3 (1.8-7.7) 02/11/20 04:12 Band Neutrophils # 0.0 K/mm3 02/11/20 04:12 Lymphocytes # (Manual) 1.0 K/mm3 (1.2-5.4) L 02/11/20 04:12 Abs React Lymphs (Man) 0.0 K/mm3 02/11/20 04:12 Monocytes # (Manual) 0.5 K/mm3 (0.0-0.8) 02/11/20 04:12 Eosinophils # (Manual) 0.1 K/mm3 (0.0-0.4) 02/11/20 04:12 Basophils # (Manual) 0.0 K/mm3 (0.0-0.1) 02/11/20 04:12 Metamyelocytes # 0.0 K/mm3 02/11/20 04:12 Myelocytes # 0.0 K/mm3 02/11/20 04:12 Promyelocytes # 0.0 K/mm3 02/11/20 04:12 Blast Cells # 0.0 K/mm3 02/11/20 04:12 WBC Morphology Not Reportable 02/11/20 04:12 Hypersegmented Neuts Not Reportable 02/11/20 04:12 Hyposegmented Neuts Not Reportable 02/11/20 04:12 Hypogranular Neuts Not Reportable 02/11/20 04:12 Smudge Cells Not Reportable 02/11/20 04:12 Toxic Granulation Not Reportable 02/11/20 04:12 Toxic Vacuolation Not Reportable 02/11/20 04:12 Dohle Bodies Not Reportable 02/11/20 04:12 Pelger-Huet Anomaly Not Reportable 02/11/20 04:12 [place]ata Rods Not Reportable 02/11/20 04:12 Platelet Estimate Consistent w auto 02/11/20 04:12 Clumped Platelets Not Reportable 02/11/20 04:12 Plt Clumps, EDTA Not Reportable 02/11/20 04:12 Large Platelets Not Reportable 02/11/20 04:12 Giant Platelets Not Reportable 02/11/20 04:12 Platelet Satelliting Not Reportable 02/11/20 04:12 Plt Morphology Comment Not Reportable 02/11/20 04:12 RBC Morphology Not Reportable 02/11/20 04:12 Dimorphic RBCs Not Reportable 02/11/20 04:12 Polychromasia Not Reportable 02/11/20 04:12 Hypochromasia Not Reportable 02/11/20 04:12 Poikilocytosis Not Reportable 02/11/20 04:12 Anisocytosis 2+ 02/11/20 04:12 Microcytosis Not Reportable 02/11/20 04:12 Macrocytosis Few 02/11/20 04:12 Spherocytes Not Reportable 02/11/20 04:12 Pappenheimer Bodies Not Reportable 02/11/20 04:12 Sickle Cells Not Reportable 02/11/20 04:12 Target Cells Few 02/11/20 04:12 Tear Drop Cells Not Reportable 02/11/20 04:12 Ovalocytes Not Reportable 02/11/20 04:12 Helmet Cells Not Reportable 02/11/20 04:12 [place] Bodies Not Reportable 02/11/20 04:12 [place] Rings Not Reportable 02/11/20 04:12 [place] Cells Not Reportable 02/11/20 04:12 Bite Cells Not Reportable 02/11/20 04:12 Crenated Cell Not Reportable 02/11/20 04:12 Elliptocytes Not Reportable 02/11/20 04:12 Acanthocytes (Spur) Not Reportable 02/11/20 04:12 Rouleaux Not Reportable 02/11/20 04:12 Hemoglobin C Crystals Not Reportable 02/11/20 04:12 Schistocytes Not Reportable 02/11/20 04:12 Malaria parasites Not Reportable 02/11/20 04:12 Gideon Bodies Not Reportable 02/11/20 04:12 Hem Pathologist Commnt No 02/11/20 04:12 APTT 33.9 Sec. (24.2-36.6) 01/26/20 16:30 PT 14.4 Sec. (12.2-14.9) 02/02/20 05:25 INR 1.11 (0.87-1.13) 02/02/20 05:25 Heparin Anti-Xa Level 0.74 U.I./ml (0.3-0.7) H 01/28/20 08:50 ABG pH 7.480 (7.320-7.450) H 02/11/20 03:43 POC ABG pCO2 38.5 mmHg (32.0-48.0) 02/11/20 03:43 ABG pCO2 38.3 mm Hg 02/10/20 04:38 POC ABG pO2 112.6 mmHg (83-108) H 02/11/20 03:43 ABG pO2 136.0 mm Hg (80.0-90.0) H 02/10/20 04:38 POC ABG HCO3 28 02/11/20 03:43 ABG HCO3 29.3 mmol/L (20.0-26.0) H 02/10/20 04:38 ABG O2 Saturation 98.8 % (95.0-99.0) 02/10/20 04:38 ABG O2 Content 8.8 (0.0-44) 02/10/20 04:38 POC ABG Base Excess 4.2 02/11/20 03:43 ABG Base Excess 5.7 mmol/L (-2.0-3.0) H 02/10/20 04:38 ABG Hemoglobin 7.2 (12.0-17.5) L 02/11/20 03:43 ABG Oxyhemoglobin 96.7 (94-98) 02/09/20 03:04 ABG Carboxyhemoglobin 1.7 % (0.0-5.0) 02/10/20 04:38 ABG Methemoglobin 0.5 % (0.0-1.5) 02/10/20 04:38 ABG Sodium 138.5 mmol/L (136.0-145.0) 02/11/20 03:43 ABG Potassium 3.4 mmol/L (3.40-4.50) 02/11/20 03:43 ABG Chloride 107.0 mmol/L (98-107) 02/11/20 03:43 ABG Glucose 154 mg/dL (65-95) H 02/11/20 03:43 Oxyhemoglobin 96.5 % (95.0-99.0) 02/10/20 04:38 Carboxyhemoglobin 0.9 (0.5-1.5) 02/08/20 03:55 FiO2 30.0 02/11/20 03:43 Sodium 146 mmol/L (137-145) H 02/11/20 04:12 Potassium 3.6 mmol/L (3.6-5.0) 02/11/20 04:12 Chloride 105.1 mmol/L (98-107) 02/11/20 04:12 Carbon Dioxide 29 mmol/L (22-30) 02/11/20 04:12 Anion Gap 16 mmol/L 02/11/20 04:12 BUN 24 mg/dL (7-17) H 02/11/20 04:12 Creatinine 0.4 mg/dL (0.6-1.2) L 02/11/20 04:12 Estimated GFR > 60 ml/min 02/11/20 04:12 BUN/Creatinine Ratio 60 % 02/11/20 04:12 Glucose 168 mg/dL (65-100) H 02/11/20 04:12 POC Glucose 127 (70-105) H 02/12/20 05:16 Hemoglobin A1c 5.3 % (4-6) 01/11/20 00:45 Lactic Acid 1.30 mmol/L (0.7-2.0) 01/26/20 23:27 Calcium 8.0 mg/dL (8.4-10.2) L 02/11/20 04:12 Phosphorus 2.30 mg/dL (2.5-4.5) L 02/03/20 05:14 Magnesium 2.20 mg/dL (1.7-2.3) 02/06/20 05:11 Total Bilirubin 0.20 mg/dL (0.1-1.2) 02/06/20 05:11 AST 16 units/L (5-40) 02/06/20 05:11 ALT 18 units/L (7-56) 02/06/20 05:11 Alkaline Phosphatase 51 units/L (35-129) 02/06/20 05:11 C-Reactive Protein 14.80 mg/dL (0.00-1.30) H 01/29/20 Unknown Total Protein 3.6 g/dL (6.3-8.2) L D 02/06/20 05:11 Albumin 1.2 g/dL (3.9-5) L 02/06/20 05:11 Albumin/Globulin Ratio 0.5 % 02/06/20 05:11 TSH 2.440 mlU/mL (0.270-4.200) 01/10/20 10:10 Procalcitonin 1.86 ng/mL (<0.15) 01/29/20 Unknown Arterial Blood Glucose 154 mg/dL (65-95) H 02/11/20 03:43 Arterial Blood Ionized Calcium 4.6 mg/dL (4.6-5.3) 02/11/20 03:43 Urine Color [place] (Yellow) 01/08/20 Unknown Urine Turbidity Cloudy (Clear) 01/08/20 Unknown Urine pH 5.0 (5.0-7.0) 01/08/20 Unknown Ur Specific [place] 1.018 (1.003-1.030) 01/08/20 Unknown Urine Protein 30 mg/dl mg/dL (Negative) 01/08/20 Unknown Urine Glucose (UA) Neg mg/dL (Negative) 01/08/20 Unknown Urine Ketones Neg mg/dL (Negative) 01/08/20 Unknown Urine Blood Mod (Negative) 01/08/20 Unknown Urine Nitrite Neg (Negative) 01/08/20 Unknown Urine Bilirubin Neg (Negative) 01/08/20 Unknown Urine Urobilinogen < 2.0 mg/dL (<2.0) 01/08/20 Unknown Ur Leukocyte Esterase Sm (Negative) 01/08/20 Unknown Urine WBC (Auto) 11.0 /HPF (0.0-6.0) H 01/08/20 Unknown Urine RBC (Auto) 7.0 /HPF (0.0-6.0) 01/08/20 Unknown U Epithel Cells (Auto) < 1.0 /HPF (0-13.0) 01/08/20 Unknown Urine Bacteria (Auto) 1+ /HPF (Negative) 01/08/20 Unknown Urine Mucus 2+ /HPF 01/08/20 Unknown Urine Yeast (Budding) 1+ /HPF 01/08/20 Unknown Vancomycin Trough 7.9 ug/mL (5.0-20.0) 01/17/20 16:04 Coronavirus (PCR) Negative (Negative) 02/10/20 10:06 Blood Type A POSITIVE 02/11/20 08:22 Antibody Screen Negative 02/11/20 08:22 Crossmatch See Detail 02/11/20 08:22 Mejía/IV: Voiding Method Indwelling Catheter IV Catheter Type [Left Upper PICC Line arm] IV Catheter Type [Right Upper Mid-line arm] IV Catheter Type [Right Peripheral IV Forearm] Active Medications - Current Medications Current Medications: Generic Name Dose Route Start Last Admin Trade Name Freq PRN Reason Stop Dose Admin Acetaminophen 650 mg 01/08/20 23:14 01/18/20 06:03 Tylenol PO 650 mg Q4H PRN Administration Pain MILD(1-3)/Fever >100.5/GARCIA Lipase/Protease/Amylase 1 each 01/17/20 08:[address] 10,500 Unit FEEDTUBE PRN PRN For Clogged Feeding Tube Atorvastatin Calcium 10 mg 01/09/20 22:00 02/11/20 21:37 Atorvastatin PO 10 mg QHS BRO Administration Dextrose 0 ml 01/08/20 23:14 02/10/20 17:18 D50w (25gm) Syringe IV 10 ml Q30MIN PRN Administration Hypoglycemia Protocol Donepezil HCl 10 mg 01/09/20 22:00 02/11/20 21:37 Aricept PO 10 mg QHS BRO Administration Famotidine 20 mg 01/27/20 10:00 02/11/20 21:37 Pepcid PO 20 mg BID BRO Administration Ferrous Sulfate 308 mg 02/09/20 12:00 02/11/20 09:58 Ferrous Sulfate FEEDTUBE 308 mg DAILY BRO Administration Fluticasone Propionate 100 mcg 01/25/20 20:00 01/26/20 06:09 Flonase NS 100 mcg QDAY PRN Administration Nasal Congestion Heparin Sodium (Porcine) 5,000 unit 01/28/20 10:00 02/11/20 21:38 Heparin SUB-Q 5,000 unit Q12HR BRO Administration Hydrophilic Ointment 1 applic 01/28/20 10:57 Vaseline Lip Therapy TP Q2HR PRN Dry Lips Piperacillin Sod/Tazobactam Sod 4.5 gm in 100 mls @ 200 mls/hr 01/19/20 14:00 02/12/20 06:27 Zosyn/Ns 4.5gm/100ml IV 02/27/20 22:29 200 mls/hr Q8HR BRO Administration Protocol Norepinephrine 4 mg in 250 mls @ 7.5 mls/hr 02/05/20 01:00 02/06/20 15:32 Levophed Drip 4 Mg/Ns 250 Ml IV Infused TITR BRO Titration Protocol 2 MCG/MIN Insulin Glargine 5 units 02/06/20 10:00 02/11/20 09:58 Lantus SUB-Q 5 units DAILY BRO Administration Insulin Human Regular 0 unit 01/27/20 12:00 02/12/20 06:28 Humulin R SUB-Q Not Given Q6HR BRO Protocol Magnesium Hydroxide 30 ml 01/08/20 23:14 Milk Of Magnesia PO Q4H PRN Constipation Megestrol Acetate 400 mg 01/12/20 11:00 02/11/20 09:58 Megestrol PO 400 mg QDAY BRO Administration Mirtazapine 15 mg 01/09/20 22:00 02/11/20 21:37 Remeron PO 15 mg QHS BRO Administration Multi-Ingred Cream/Lotion/Oil/Oint 1 applic 01/28/20 10:57 Artificial Tears Ophth Oint OU Q4HR PRN Dry Eye(s) Multivitamins 5 ml 02/09/20 12:00 02/11/20 09:57 Centrum Liq PO 5 ml QDAY BRO Administration Neomycin/Polymyxin/Bacitracin 1 applic 02/08/20 04:45 02/11/20 09:57 Triple Antibiotic TP 1 applic QDAY BRO Administration Ondansetron HCl 4 mg 01/08/20 23:14 Zofran IV Q8H PRN Nausea And Vomiting Scopolamine 1 each 02/05/20 10:00 02/11/20 09:57 Transderm-Scop TD 1 each Q3D BRO Administration Simple Syrup 15 ml 01/17/20 08:37 Simple Syrup FEEDTUBE PRN PRN Hypoglycemia Simple Syrup 30 ml 01/17/20 08:37 02/11/20 23:43 Simple Syrup FEEDTUBE 30 ml PRN PRN Administration Hypoglycemia Sodium Bicarbonate 325 mg 01/17/20 08:37 Sodium Bicarbonate FEEDTUBE PRN PRN For Clogged Feeding Tube Sodium Chloride 10 ml 01/09/20 10:00 02/12/20 00:45 Sodium Chloride Flush Syringe 10 Ml IV 10 ml BID BRO Administration Sodium Chloride 10 ml 01/08/20 23:14 Sodium Chloride Flush Syringe 10 Ml IV PRN PRN LINE FLUSH Trazodone HCl 25 mg 01/09/20 22:00 02/11/20 21:36 Desyrel PO 25 mg QHS BRO Administration Nutrition/Malnutrition Assess - Dietary Evaluation Nutrition/Malnutrition Findings: Nutrition Notes Start: 01/09/20 12:13 Freq: Status: Active Protocol: Document 02/10/20 13:23 FLORINDA (Rec: 02/10/20 13:[id number]) Co-Sign 02/10/20 13:23 NICK Nutrition Notes Initial or Follow up Reassessment Current Diagnosis Decubitus(Pressure Ulcer), Diabetes,Sepsis Other Pertinent Diagnosis UTI, dementia, PE, Sacral wound Current Diet Vital AF 1.2 at 50ml/hr Labs/Tests 02/08 K 3.3 Cr 0.4 BUN 27 BG 127 Pertinent Medications Insulin (Lantus and Humulin) Height 5 ft 2 in Weight 71.1 kg [place] Body Weight (kg) 50.00 BMI 28.6 Weight change and time frame Wt change noted. Pt 4+ pitting edema continues. Subjective/Other Information F/U for TF tolerance. Pt TF running at goal rate. Percent of energy/protein needs met: 92%/100% Burn Absent Trauma Absent Current % PO Negligible Minimum of two criteria Yes Fluid Accumulation Moderate to Severe (severe) Reduced [employer] Strength Measurably Reduced (severe) #3 Nutrition Diagnosis Malnutrition Diagnosis Progress(for reassessment Continues documentation) #2 Nutrition Diagnosis Inadequate oral intake Diagnosis Progress(for reassessment Continues documentation) #1 Nutrition Diagnosis Increased nutrient needs ( specify in comment below) Comments: protein Diagnosis Progress(for reassessment Continues documentation) Is patient on ventilator? No Is Patient Ambulatory and/or Out of Bed No REE-([facility]-confined to bed) 1426.968 Kcal/Kg value to use for calculation 22 Approximate Energy Requirements Using 1564 kcal/Kg Calculation Used for Recommendations Kcal/kg Additional Notes Pro: 81-98 g (1.25-1.5 g/kg) Fluid: 1ml/kcal Nutrition Intervention Change Diet Order: Continue Nutrition Support: Vital AF 1.2 at 50ml/hr Flush 200ml q4h per MD Kcal 1,440 Protein (gm) 90 Fluid (mL) 973 Goal #1 Meet at least 80% of kcal and protein needs via TF Goal #2 TF tolerance Goal #3 Wound Healing Anticipated Discharge Needs: Continue TF Follow-Up By: 02/12/20 Additional Comments F/U for stable TF and Na levels
[2020-02-12] MEDS: INSULIN GLARGINE 100 UNITS/ML SUB-Q SCH (10:08)
[2020-02-12] MEDS: FAMOTIDINE 20 MG TAB PO SCH ×2 (10:08→21:04)
[2020-02-12] MEDS: MULTIVITAMINS 5 ML ORAL LIQUID PO SCH (10:08)
[2020-02-12] MEDS: MEGESTROL 400 MG/10 ML ORAL LIQD PO SCH (10:08)
[2020-02-12] MEDS: FERROUS SULFATE 308 MG (62mg Elemental Iron) / 7 ML ELIXIR FEEDTUBE SCH (10:08)
[2020-02-12] MEDS: NEOMY 3.5 MG/BACIT 400 UNITS/POLY B 5000 UNITS OINT 15 GM TP SCH (10:10)
[2020-02-12] MEDS: HEPARIN 5,000 UNIT/1 ML VIAL SUB-Q SCH ×2 (10:10→21:05)
--- NOTE | 2020-02-12 11:12 | Progress Note ---
Assessment and Plan Severe sepsis with shock. Left lung atelectasis. Left pleural effusion. Acute hypoxemic respiratory failure. Acute possibly on chronic encephalopathy. History of diabetes. Urinary tract infection. History of pulmonary embolism, diagnosed several months ago. Sacral decubitus ulcer. Dementia. Anemia that is normocytic. - for trach in AM - discontinue PICC line - complete AB's per ID rec's (Zosyn) - continue care as below otherwise; - continue to wean supplemental oxygen for target O2 sat's > 92% acutely - VAP bundle addressed - continue lung protective strategies - continue bronchodilators with pulmonary hygiene per RT - wean per pulmonary driven protocols otherwise - continue accuchecks with glycemic control per SSI (While critically ill target blood glucose of 140-180 mg/dL; avoid hypoglycemia) - sedation prn for target RASS 0 to -1 - avoid nephrotoxins, renally dose all medications - continue to avoid benzodiazepine's, reduce the possibility of delirium - prn analgesia per CPOT score - Maintenance of sleep-wake cycle, avoid delirium - continue enteral nutritional support at goal rate as tolerated - G.I. & VTE prophylaxis with famotidine and heparin - PT/OT/ROM exercises - continue mobility protocols for pressure ulcer prophylaxis - Monitor hemodynamics closely - continue other care per attending / other consultants - discharge planning ongoing concurrently .... Re-evaluate in am & prn CONDITION: CRITICAL PROGNOSIS: GUARDED CODE STATUS: FULL CODE The high probability of a clinically significant, sudden or life-threatening deterioration of the [respiratory, cardiovascular & neurologic] system(s) required my full and direct attention, intervention and personal management. The aggregate critical care time was [32] minutes without overlap. Time includes spent on; [x] Data Review and interpretation [x] Patient assessment and monitoring of vital signs [x] Documentation [x] Medication orders and management Subjective Date of service: 02/12/20 Principal diagnosis: Septic Shock; S/P Cardiac Arrest; Ac. hypoxemic resp failure; UTI Interval history: Patient is seen today for: Severe sepsis with shock; S/P Cardiac Arrest; L. lung atelectasis / L. pleural effusion; Acute hypoxemic respiratory failure; Acute possibly on chronic encephalopathy; DM II; UTI; VTE Seen and examined at bedside; 24hour events reviewed; nursing and respiratory care staff consulted; no adverse overnight events reported to me; resting peacefully in bed; on SBT but tolerating tenuously with apneic spells; AMS is persistent; off vasopressors; for tracheostomy in am Objective Vital Signs - 12hr 02/11/20 02/11/20 02/11/20 23:15 23:27 23:30 Temperature Pulse Rate 89 94 H 95 H Pulse Rate [ From Monitor] Respiratory 22 23 Rate Blood Pressure 107/52 107/52 116/58 O2 Sat by Pulse 100 100 100 Oximetry 02/11/20 02/12/20 02/12/20 23:45 00:00 00:15 Temperature 99.3 F Pulse Rate 97 H 106 H 92 H Pulse Rate [ 106 H From Monitor] Respiratory 23 25 H 23 Rate Blood Pressure 111/57 114/61 115/57 O2 Sat by Pulse 100 100 100 Oximetry 02/12/20 02/12/20 02/12/20 00:30 00:45 01:00 Temperature Pulse Rate 100 H 94 H 95 H Pulse Rate [ From Monitor] Respiratory 23 24 23 Rate Blood Pressure 111/62 107/53 118/60 O2 Sat by Pulse 100 100 100 Oximetry 02/12/20 02/12/20 02/12/20 01:15 01:30 01:45 Temperature Pulse Rate 89 90 90 Pulse Rate [ From Monitor] Respiratory 18 22 14 Rate Blood Pressure 118/56 113/55 120/58 O2 Sat by Pulse 100 100 100 Oximetry 02/12/20 02/12/20 02/12/20 02:00 02:15 02:30 Temperature Pulse Rate 89 95 H 94 H Pulse Rate [ From Monitor] Respiratory 22 21 19 Rate Blood Pressure 115/55 122/59 116/58 O2 Sat by Pulse 100 100 100 Oximetry 02/12/20 02/12/20 02/12/20 02:45 03:00 03:15 Temperature Pulse Rate 100 H 95 H 95 H Pulse Rate [ From Monitor] Respiratory 22 21 21 Rate Blood Pressure 128/66 119/64 131/63 O2 Sat by Pulse 100 100 100 Oximetry 02/12/20 02/12/20 02/12/20 03:30 03:39 03:40 Temperature 98.3 F Pulse Rate 98 H 91 H Pulse Rate [ From Monitor] Respiratory 16 Rate Blood Pressure 127/64 127/64 O2 Sat by Pulse 100 100 Oximetry 02/12/20 02/12/20 02/12/20 03:45 04:00 04:15 Temperature Pulse Rate 99 H 91 H 100 H Pulse Rate [ 105 H From Monitor] Respiratory 22 25 H 21 Rate Blood Pressure 124/63 127/65 116/58 O2 Sat by Pulse 100 100 100 Oximetry 02/12/20 02/12/20 02/12/20 04:30 04:45 05:00 Temperature Pulse Rate 105 H 100 H 103 H Pulse Rate [ From Monitor] Respiratory 11 L 18 16 Rate Blood Pressure 113/62 105/63 124/64 O2 Sat by Pulse 100 100 100 Oximetry 02/12/20 02/12/20 02/12/20 05:15 05:30 05:45 Temperature Pulse Rate 116 H 116 H 101 H Pulse Rate [ From Monitor] Respiratory 21 24 24 Rate Blood Pressure 139/88 137/77 124/65 O2 Sat by Pulse 100 100 100 Oximetry 02/12/20 02/12/20 02/12/20 06:00 06:15 06:30 Temperature Pulse Rate 99 H 98 H 99 H Pulse Rate [ From Monitor] Respiratory 23 23 23 Rate Blood Pressure 124/62 125/67 128/68 O2 Sat by Pulse 100 100 100 Oximetry 02/12/20 02/12/20 02/12/20 06:45 07:00 07:15 Temperature Pulse Rate 96 H 96 H 97 H Pulse Rate [ From Monitor] Respiratory 23 23 24 Rate Blood Pressure 129/66 132/68 130/70 O2 Sat by Pulse 100 100 100 Oximetry 02/12/20 02/12/20 02/12/20 07:30 07:45 08:00 Temperature 97.2 F L Pulse Rate 98 H 87 91 H Pulse Rate [ 102 H From Monitor] Respiratory 23 22 23 Rate Blood Pressure 131/69 135/63 130/64 O2 Sat by Pulse 100 100 100 Oximetry 02/12/20 02/12/20 02/12/20 08:15 08:30 08:45 Temperature Pulse Rate 100 H 99 H 98 H Pulse Rate [ From Monitor] Respiratory 23 24 23 Rate Blood Pressure 135/70 134/74 132/67 O2 Sat by Pulse 100 100 100 Oximetry 02/12/20 02/12/20 02/12/20 08:55 09:00 09:15 Temperature Pulse Rate 97 H 97 H 93 H Pulse Rate [ From Monitor] Respiratory 22 22 Rate Blood Pressure 126/65 126/65 126/66 O2 Sat by Pulse 100 100 100 Oximetry 02/12/20 02/12/20 02/12/20 09:30 09:45 09:48 Temperature Pulse Rate 93 H 99 H 100 H Pulse Rate [ From Monitor] Respiratory 24 17 25 H Rate Blood Pressure 130/63 130/67 130/67 O2 Sat by Pulse 100 100 100 Oximetry 02/12/20 02/12/20 10:00 10:15 Temperature Pulse Rate 96 H 104 H Pulse Rate [ From Monitor] Respiratory 25 H 25 H Rate Blood Pressure 130/67 129/70 O2 Sat by Pulse 100 100 Oximetry Constitutional: no acute distress, alert, other (elderly chronically ill looking female orally intubated to [facility] [place]) Eyes: non-icteric ENT: oropharynx moist, other (ETT 7.5 cm at 22 [address]) Neck: supple, no lymphadenopathy Effort: normal Ascultation: Bilateral: diminished breath sounds, rhonchi (scant) Percussion: Bilateral: not dull Cardiovascular: regular rate and rhythm, other (S1,S2) Gastrointestinal: normoactive bowel sounds, soft, non-tender, other (PEG in place) Integumentary: decubitus ulcer Extremities: no cyanosis, pulses normal, no ischemia or petechiae, edema, other (bilateral upper extremity edema) Neurologic: pupils equal and round, other (awake and alert, not obeying commands) Psychiatric: other (Unable to assess secondary to mental status) CBC and BMP: 02/12/20 06:45 02/11/20 04:12 ABG, PT/INR, D-dimer: ABG ABG pH 7.480 (7.320-7.450) H 02/11/20 03:43 POC ABG pCO2 38.5 mmHg (32.0-48.0) 02/11/20 03:43 ABG pCO2 38.3 mm Hg 02/10/20 04:38 POC ABG pO2 112.6 mmHg (83-108) H 02/11/20 03:43 ABG pO2 136.0 mm Hg (80.0-90.0) H 02/10/20 04:38 POC ABG HCO3 28 02/11/20 03:43 ABG O2 Saturation 98.8 % (95.0-99.0) 02/10/20 04:38 PT/INR, D-dimer PT 14.4 Sec. (12.2-14.9) 02/02/20 05:25 INR 1.11 (0.87-1.13) 02/02/20 05:25 Abnormal lab findings: Abnormal Labs 01/08/20 01/08/20 01/08/20 16:29 16:29 16:29 WBC 13.5 H RBC Hgb Hct MCHC RDW 15.5 H Plt Count MCH Lymph % (Auto) Lymph # Lymph # (Auto) Seg Neutrophils % Seg Neuts % (Manual) 85.0 H Lymphocytes % (Manual) 11.0 L Seg Neutrophils # Seg Neutrophils # Man 11.5 H Nucleated RBC % Lymphocytes # (Manual) Monocytes # (Manual) PT INR Heparin Anti-Xa Level POC ABG pO2 ABG pH POC ABG pCO2 ABG Hemoglobin ABG Oxyhemoglobin ABG pO2 ABG HCO3 ABG O2 Saturation ABG Base Excess ABG Potassium ABG Chloride ABG Glucose Oxyhemoglobin Sodium 161 H* Potassium Chloride 125.5 H Carbon Dioxide 20 L BUN 30 H Creatinine Glucose 115 H POC Glucose Lactic Acid 2.20 H* Calcium 7.9 L AST 48 H Phosphorus Total Protein Albumin 2.5 L C-Reactive Protein Arterial Blood Glucose Arterial Blood Ionized Calcium Urine WBC (Auto) Crossmatch 01/08/20 01/08/20 01/08/20 19:02 23:30 Unknown WBC RBC Hgb Hct MCHC RDW Plt Count MCH Lymph % (Auto) Lymph # Lymph # (Auto) Seg Neutrophils % Seg Neuts % (Manual) Lymphocytes % (Manual) Seg Neutrophils # Seg Neutrophils # Man Nucleated RBC % Lymphocytes # (Manual) Monocytes # (Manual) PT INR Heparin Anti-Xa Level POC ABG pO2 ABG pH POC ABG pCO2 ABG Hemoglobin ABG Oxyhemoglobin ABG pO2 ABG HCO3 ABG O2 Saturation ABG Base Excess ABG Potassium ABG Chloride ABG Glucose Oxyhemoglobin Sodium Potassium Chloride Carbon Dioxide BUN Creatinine Glucose POC Glucose Lactic Acid 2.10 H* 2.50 H* Calcium AST Phosphorus Total Protein Albumin C-Reactive Protein Arterial Blood Glucose Arterial Blood Ionized Calcium Urine WBC (Auto) 11.0 H Crossmatch 01/09/20 01/09/20 01/09/20 00:19 00:54 05:52 WBC 13.5 H RBC 3.02 L Hgb 9.0 L D Hct 27.4 L D MCHC RDW Plt Count MCH Lymph % (Auto) 9.1 L Lymph # Lymph # (Auto) Seg Neutrophils % 87.6 H Seg Neuts % (Manual) Lymphocytes % (Manual) Seg Neutrophils # 11.8 H Seg Neutrophils # Man Nucleated RBC % Lymphocytes # (Manual) Monocytes # (Manual) PT INR Heparin Anti-Xa Level POC ABG pO2 ABG pH POC ABG pCO2 ABG Hemoglobin ABG Oxyhemoglobin ABG pO2 ABG HCO3 ABG O2 Saturation ABG Base Excess ABG Potassium ABG Chloride ABG Glucose Oxyhemoglobin Sodium Potassium Chloride Carbon Dioxide BUN Creatinine Glucose POC Glucose 118 H 116 H Lactic Acid Calcium AST Phosphorus Total Protein Albumin C-Reactive Protein Arterial Blood Glucose Arterial Blood Ionized Calcium Urine WBC (Auto) Crossmatch 01/09/20 01/09/20 01/09/20 05:52 05:52 13:03 WBC RBC Hgb Hct MCHC RDW Plt Count MCH Lymph % (Auto) Lymph # Lymph # (Auto) Seg Neutrophils % Seg Neuts % (Manual) Lymphocytes % (Manual) Seg Neutrophils # Seg Neutrophils # Man Nucleated RBC % Lymphocytes # (Manual) Monocytes # (Manual) PT 17.1 H INR 1.36 H Heparin Anti-Xa Level POC ABG pO2 ABG pH POC ABG pCO2 ABG Hemoglobin ABG Oxyhemoglobin ABG pO2 ABG HCO3 ABG O2 Saturation ABG Base Excess ABG Potassium ABG Chloride ABG Glucose Oxyhemoglobin Sodium 162 H* Potassium 3.0 L D Chloride 128.3 H Carbon Dioxide BUN 23 H Creatinine Glucose POC Glucose 55 L Lactic Acid Calcium 7.6 L AST Phosphorus Total Protein Albumin C-Reactive Protein Arterial Blood Glucose Arterial Blood Ionized Calcium Urine WBC (Auto) Crossmatch 01/09/20 01/09/20 01/09/20 21:22 21:50 22:28 WBC RBC Hgb Hct MCHC RDW Plt Count MCH Lymph % (Auto) Lymph # Lymph # (Auto) Seg Neutrophils % Seg Neuts % (Manual) Lymphocytes % (Manual) Seg Neutrophils # Seg Neutrophils # Man Nucleated RBC % Lymphocytes # (Manual) Monocytes # (Manual) PT INR Heparin Anti-Xa Level POC ABG pO2 ABG pH POC ABG pCO2 ABG Hemoglobin ABG Oxyhemoglobin ABG pO2 ABG HCO3 ABG O2 Saturation ABG Base Excess ABG Potassium ABG Chloride ABG Glucose Oxyhemoglobin Sodium 159 H Potassium 5.1 H D Chloride 128.5 H Carbon Dioxide 16 L BUN 23 H Creatinine Glucose 51 L POC Glucose 52 L 106 H Lactic Acid Calcium 8.2 L AST Phosphorus Total Protein Albumin C-Reactive Protein Arterial Blood Glucose Arterial Blood Ionized Calcium Urine WBC (Auto) Crossmatch 01/10/20 01/10/20 01/10/20 05:23 09:11 10:10 WBC 13.4 H RBC Hgb Hct MCHC RDW Plt Count MCH Lymph % (Auto) 7.2 L Lymph # 1.0 L Lymph # (Auto) Seg Neutrophils % 90.0 H Seg Neuts % (Manual) Lymphocytes % (Manual) Seg Neutrophils # 12.0 H Seg Neutrophils # Man Nucleated RBC % Lymphocytes # (Manual) Monocytes # (Manual) PT INR Heparin Anti-Xa Level POC ABG pO2 ABG pH POC ABG pCO2 ABG Hemoglobin ABG Oxyhemoglobin ABG pO2 ABG HCO3 ABG O2 Saturation ABG Base Excess ABG Potassium ABG Chloride ABG Glucose Oxyhemoglobin Sodium 155 H Potassium Chloride 122.8 H Carbon Dioxide 21 L BUN 19 H Creatinine Glucose POC Glucose 120 H Lactic Acid Calcium AST Phosphorus Total Protein Albumin C-Reactive Protein Arterial Blood Glucose Arterial Blood Ionized Calcium Urine WBC (Auto) Crossmatch 01/10/20 01/10/20 01/10/20 11:47 11:57 17:09 WBC RBC Hgb Hct MCHC RDW Plt Count MCH Lymph % (Auto) Lymph # Lymph # (Auto) Seg Neutrophils % Seg Neuts % (Manual) Lymphocytes % (Manual) Seg Neutrophils # Seg Neutrophils # Man Nucleated RBC % Lymphocytes # (Manual) Monocytes # (Manual) PT INR Heparin Anti-Xa Level POC ABG pO2 ABG pH POC ABG pCO2 ABG Hemoglobin ABG Oxyhemoglobin ABG pO2 ABG HCO3 ABG O2 Saturation ABG Base Excess ABG Potassium ABG Chloride ABG Glucose Oxyhemoglobin Sodium 153 H Potassium Chloride 118.3 H Carbon Dioxide 20 L BUN 19 H Creatinine Glucose 113 H POC Glucose 142 H 125 H Lactic Acid Calcium AST Phosphorus Total Protein Albumin C-Reactive Protein Arterial Blood Glucose Arterial Blood Ionized Calcium Urine WBC (Auto) Crossmatch 01/10/20 01/10/20 01/11/20 20:27 22:00 00:45 WBC RBC Hgb Hct MCHC RDW Plt Count MCH Lymph % (Auto) Lymph # Lymph # (Auto) Seg Neutrophils % Seg Neuts % (Manual) Lymphocytes % (Manual) Seg Neutrophils # Seg Neutrophils # Man Nucleated RBC % Lymphocytes # (Manual) Monocytes # (Manual) PT INR Heparin Anti-Xa Level POC ABG pO2 ABG pH POC ABG pCO2 ABG Hemoglobin ABG Oxyhemoglobin ABG pO2 ABG HCO3 ABG O2 Saturation ABG Base Excess ABG Potassium ABG Chloride ABG Glucose Oxyhemoglobin Sodium 153 H 154 H Potassium 3.3 L 3.2 L Chloride 117.0 H 118.9 H Carbon Dioxide 20 L BUN Creatinine Glucose POC Glucose 136 H Lactic Acid Calcium 8.3 L 8.0 L AST Phosphorus Total Protein Albumin C-Reactive Protein Arterial Blood Glucose Arterial Blood Ionized Calcium Urine WBC (Auto) Crossmatch 01/11/20 01/11/20 01/11/20 07:06 08:03 11:54 WBC RBC Hgb Hct MCHC RDW Plt Count MCH Lymph % (Auto) Lymph # Lymph # (Auto) Seg Neutrophils % Seg Neuts % (Manual) Lymphocytes % (Manual) Seg Neutrophils # Seg Neutrophils # Man Nucleated RBC % Lymphocytes # (Manual) Monocytes # (Manual) PT INR Heparin Anti-Xa Level POC ABG pO2 ABG pH POC ABG pCO2 ABG Hemoglobin ABG Oxyhemoglobin ABG pO2 ABG HCO3 ABG O2 Saturation ABG Base Excess ABG Potassium ABG Chloride ABG Glucose Oxyhemoglobin Sodium 151 H Potassium Chloride 118.7 H Carbon Dioxide 21 L BUN Creatinine Glucose 107 H POC Glucose 118 H 164 H Lactic Acid Calcium 8.3 L AST Phosphorus Total Protein Albumin C-Reactive Protein Arterial Blood Glucose Arterial Blood Ionized Calcium Urine WBC (Auto) Crossmatch 01/11/20 01/12/20 01/12/20 16:28 00:19 05:40 WBC RBC Hgb Hct MCHC RDW Plt Count MCH Lymph % (Auto) Lymph # Lymph # (Auto) Seg Neutrophils % Seg Neuts % (Manual) Lymphocytes % (Manual) Seg Neutrophils # Seg Neutrophils # Man Nucleated RBC % Lymphocytes # (Manual) Monocytes # (Manual) PT INR Heparin Anti-Xa Level POC ABG pO2 ABG pH POC ABG pCO2 ABG Hemoglobin ABG Oxyhemoglobin ABG pO2 ABG HCO3 ABG O2 Saturation ABG Base Excess ABG Potassium ABG Chloride ABG Glucose Oxyhemoglobin Sodium 148 H Potassium Chloride 111.6 H Carbon Dioxide 19 L BUN Creatinine Glucose 128 H POC Glucose 132 H 179 H Lactic Acid Calcium 8.2 L AST Phosphorus Total Protein Albumin C-Reactive Protein Arterial Blood Glucose Arterial Blood Ionized Calcium Urine WBC (Auto) Crossmatch 01/12/20 01/12/20 01/12/20 06:17 11:37 17:21 WBC RBC Hgb Hct MCHC RDW Plt Count MCH Lymph % (Auto) Lymph # Lymph # (Auto) Seg Neutrophils % Seg Neuts % (Manual) Lymphocytes % (Manual) Seg Neutrophils # Seg Neutrophils # Man Nucleated RBC % Lymphocytes # (Manual) Monocytes # (Manual) PT INR Heparin Anti-Xa Level POC ABG pO2 ABG pH POC ABG pCO2 ABG Hemoglobin ABG Oxyhemoglobin ABG pO2 ABG HCO3 ABG O2 Saturation ABG Base Excess ABG Potassium ABG Chloride ABG Glucose Oxyhemoglobin Sodium Potassium Chloride Carbon Dioxide BUN Creatinine Glucose POC Glucose 140 H 142 H 133 H Lactic Acid Calcium AST Phosphorus Total Protein Albumin C-Reactive Protein Arterial Blood Glucose Arterial Blood Ionized Calcium Urine WBC (Auto) Crossmatch 01/12/20 01/13/20 01/13/20 23:14 05:26 07:00 WBC RBC Hgb Hct MCHC RDW Plt Count MCH Lymph % (Auto) Lymph # Lymph # (Auto) Seg Neutrophils % Seg Neuts % (Manual) Lymphocytes % (Manual) Seg Neutrophils # Seg Neutrophils # Man Nucleated RBC % Lymphocytes # (Manual) Monocytes # (Manual) PT INR Heparin Anti-Xa Level POC ABG pO2 ABG pH POC ABG pCO2 ABG Hemoglobin ABG Oxyhemoglobin ABG pO2 ABG HCO3 ABG O2 Saturation ABG Base Excess ABG Potassium ABG Chloride ABG Glucose Oxyhemoglobin Sodium Potassium Chloride 110.0 H Carbon Dioxide BUN Creatinine Glucose 139 H POC Glucose 135 H 162 H Lactic Acid Calcium 7.8 L AST Phosphorus Total Protein Albumin C-Reactive Protein Arterial Blood Glucose Arterial Blood Ionized Calcium Urine WBC (Auto) Crossmatch 01/13/20 01/13/20 01/13/20 12:14 17:52 21:40 WBC RBC Hgb Hct MCHC RDW Plt Count MCH Lymph % (Auto) Lymph # Lymph # (Auto) Seg Neutrophils % Seg Neuts % (Manual) Lymphocytes % (Manual) Seg Neutrophils # Seg Neutrophils # Man Nucleated RBC % Lymphocytes # (Manual) Monocytes # (Manual) PT INR Heparin Anti-Xa Level POC ABG pO2 ABG pH POC ABG pCO2 ABG Hemoglobin ABG Oxyhemoglobin ABG pO2 ABG HCO3 ABG O2 Saturation ABG Base Excess ABG Potassium ABG Chloride ABG Glucose Oxyhemoglobin Sodium Potassium Chloride Carbon Dioxide BUN Creatinine Glucose POC Glucose 205 H 172 H 186 H Lactic Acid Calcium AST Phosphorus Total Protein Albumin C-Reactive Protein Arterial Blood Glucose Arterial Blood Ionized Calcium Urine WBC (Auto) Crossmatch 01/14/20 01/14/20 01/14/20 04:28 11:01 11:01 WBC 14.8 H RBC 3.20 L Hgb 9.5 L Hct 28.0 L MCHC RDW Plt Count MCH Lymph % (Auto) Lymph # Lymph # (Auto) Seg Neutrophils % Seg Neuts % (Manual) Lymphocytes % (Manual) Seg Neutrophils # Seg Neutrophils # Man Nucleated RBC % Lymphocytes # (Manual) Monocytes # (Manual) PT INR Heparin Anti-Xa Level POC ABG pO2 ABG pH POC ABG pCO2 ABG Hemoglobin ABG Oxyhemoglobin ABG pO2 ABG HCO3 ABG O2 Saturation ABG Base Excess ABG Potassium ABG Chloride ABG Glucose Oxyhemoglobin Sodium Potassium 3.2 L Chloride Carbon Dioxide BUN Creatinine 0.4 L Glucose POC Glucose 115 H Lactic Acid Calcium 8.0 L AST Phosphorus Total Protein Albumin C-Reactive Protein Arterial Blood Glucose Arterial Blood Ionized Calcium Urine WBC (Auto) Crossmatch 01/14/20 01/14/20 01/14/20 11:01 16:33 22:32 WBC RBC Hgb Hct MCHC RDW Plt Count MCH Lymph % (Auto) Lymph # Lymph # (Auto) Seg Neutrophils % Seg Neuts % (Manual) Lymphocytes % (Manual) Seg Neutrophils # Seg Neutrophils # Man Nucleated RBC % Lymphocytes # (Manual) Monocytes # (Manual) PT 15.8 H INR 1.23 H Heparin Anti-Xa Level POC ABG pO2 ABG pH POC ABG pCO2 ABG Hemoglobin ABG Oxyhemoglobin ABG pO2 ABG HCO3 ABG O2 Saturation ABG Base Excess ABG Potassium ABG Chloride ABG Glucose Oxyhemoglobin Sodium Potassium Chloride Carbon Dioxide BUN Creatinine Glucose POC Glucose 58 L 188 H Lactic Acid Calcium AST Phosphorus Total Protein Albumin C-Reactive Protein Arterial Blood Glucose Arterial Blood Ionized Calcium Urine WBC (Auto) Crossmatch 01/15/20 01/15/20 01/15/20 05:35 06:19 17:17 WBC RBC Hgb Hct MCHC RDW Plt Count MCH Lymph % (Auto) Lymph # Lymph # (Auto) Seg Neutrophils % Seg Neuts % (Manual) Lymphocytes % (Manual) Seg Neutrophils # Seg Neutrophils # Man Nucleated RBC % Lymphocytes # (Manual) Monocytes # (Manual) PT INR Heparin Anti-Xa Level POC ABG pO2 ABG pH POC ABG pCO2 ABG Hemoglobin ABG Oxyhemoglobin ABG pO2 ABG HCO3 ABG O2 Saturation ABG Base Excess ABG Potassium ABG Chloride ABG Glucose Oxyhemoglobin Sodium Potassium Chloride Carbon Dioxide BUN Creatinine 0.5 L Glucose 104 H POC Glucose 106 H 183 H Lactic Acid Calcium 7.8 L AST Phosphorus Total Protein Albumin C-Reactive Protein Arterial Blood Glucose Arterial Blood Ionized Calcium Urine WBC (Auto) Crossmatch 01/15/20 01/16/20 01/16/20 22:29 05:35 05:59 WBC 14.7 H RBC 3.04 L Hgb 9.0 L Hct 27.0 L MCHC RDW Plt Count MCH Lymph % (Auto) 9.1 L Lymph # Lymph # (Auto) Seg Neutrophils % 87.3 H Seg Neuts % (Manual) Lymphocytes % (Manual) Seg Neutrophils # 12.9 H Seg Neutrophils # Man Nucleated RBC % Lymphocytes # (Manual) Monocytes # (Manual) PT INR Heparin Anti-Xa Level POC ABG pO2 ABG pH POC ABG pCO2 ABG Hemoglobin ABG Oxyhemoglobin ABG pO2 ABG HCO3 ABG O2 Saturation ABG Base Excess ABG Potassium ABG Chloride ABG Glucose Oxyhemoglobin Sodium Potassium Chloride Carbon Dioxide BUN Creatinine Glucose POC Glucose 228 H 130 H Lactic Acid Calcium AST Phosphorus Total Protein Albumin C-Reactive Protein Arterial Blood Glucose Arterial Blood Ionized Calcium Urine WBC (Auto) Crossmatch 01/16/20 01/16/20 01/16/20 09:52 12:49 17:30 WBC RBC Hgb Hct MCHC RDW Plt Count MCH Lymph % (Auto) Lymph # Lymph # (Auto) Seg Neutrophils % Seg Neuts % (Manual) Lymphocytes % (Manual) Seg Neutrophils # Seg Neutrophils # Man Nucleated RBC % Lymphocytes # (Manual) Monocytes # (Manual) PT INR Heparin Anti-Xa Level POC ABG pO2 ABG pH POC ABG pCO2 ABG Hemoglobin ABG Oxyhemoglobin ABG pO2 ABG HCO3 ABG O2 Saturation ABG Base Excess ABG Potassium ABG Chloride ABG Glucose Oxyhemoglobin Sodium Potassium Chloride Carbon Dioxide BUN Creatinine Glucose POC Glucose 122 H 142 H 192 H Lactic Acid Calcium AST Phosphorus Total Protein Albumin C-Reactive Protein Arterial Blood Glucose Arterial Blood Ionized Calcium Urine WBC (Auto) Crossmatch 01/16/20 01/17/20 01/17/20 23:01 08:36 08:36 WBC 12.7 H RBC 2.98 L Hgb 8.9 L Hct 26.4 L MCHC RDW Plt Count MCH Lymph % (Auto) 8.8 L Lymph # 1.1 L Lymph # (Auto) Seg Neutrophils % 86.7 H Seg Neuts % (Manual) Lymphocytes % (Manual) Seg Neutrophils # 11.0 H Seg Neutrophils # Man Nucleated RBC % Lymphocytes # (Manual) Monocytes # (Manual) PT INR Heparin Anti-Xa Level POC ABG pO2 ABG pH POC ABG pCO2 ABG Hemoglobin ABG Oxyhemoglobin ABG pO2 ABG HCO3 ABG O2 Saturation ABG Base Excess ABG Potassium ABG Chloride ABG Glucose Oxyhemoglobin Sodium Potassium 3.3 L D Chloride Carbon Dioxide BUN Creatinine 0.4 L Glucose POC Glucose 141 H Lactic Acid Calcium 8.1 L AST Phosphorus Total Protein 4.6 L Albumin 1.6 L C-Reactive Protein Arterial Blood Glucose Arterial Blood Ionized Calcium Urine WBC (Auto) Crossmatch 01/17/20 01/17/20 01/18/20 11:43 23:56 06:27 WBC RBC Hgb Hct MCHC RDW Plt Count MCH Lymph % (Auto) Lymph # Lymph # (Auto) Seg Neutrophils % Seg Neuts % (Manual) Lymphocytes % (Manual) Seg Neutrophils # Seg Neutrophils # Man Nucleated RBC % Lymphocytes # (Manual) Monocytes # (Manual) PT INR Heparin Anti-Xa Level POC ABG pO2 ABG pH POC ABG pCO2 ABG Hemoglobin ABG Oxyhemoglobin ABG pO2 ABG HCO3 ABG O2 Saturation ABG Base Excess ABG Potassium ABG Chloride ABG Glucose Oxyhemoglobin Sodium Potassium Chloride Carbon Dioxide BUN Creatinine Glucose POC Glucose 137 H 215 H 122 H Lactic Acid Calcium AST Phosphorus Total Protein Albumin C-Reactive Protein Arterial Blood Glucose Arterial Blood Ionized Calcium Urine WBC (Auto) Crossmatch 01/18/20 01/18/20 01/18/20 07:31 07:31 11:39 WBC 12.1 H RBC 3.23 L Hgb 9.7 L Hct 28.7 L MCHC RDW Plt Count MCH Lymph % (Auto) 9.2 L Lymph # 1.1 L Lymph # (Auto) Seg Neutrophils % 85.0 H Seg Neuts % (Manual) Lymphocytes % (Manual) Seg Neutrophils # 10.3 H Seg Neutrophils # Man Nucleated RBC % Lymphocytes # (Manual) Monocytes # (Manual) PT INR Heparin Anti-Xa Level POC ABG pO2 ABG pH POC ABG pCO2 ABG Hemoglobin ABG Oxyhemoglobin ABG pO2 ABG HCO3 ABG O2 Saturation ABG Base Excess ABG Potassium ABG Chloride ABG Glucose Oxyhemoglobin Sodium Potassium Chloride Carbon Dioxide BUN Creatinine 0.4 L Glucose 108 H POC Glucose 172 H Lactic Acid Calcium AST Phosphorus Total Protein 5.3 L Albumin 2.1 L C-Reactive Protein Arterial Blood Glucose Arterial Blood Ionized Calcium Urine WBC (Auto) Crossmatch 01/18/20 01/19/20 01/19/20 18:22 00:15 11:30 WBC RBC Hgb Hct MCHC RDW Plt Count MCH Lymph % (Auto) Lymph # Lymph # (Auto) Seg Neutrophils % Seg Neuts % (Manual) Lymphocytes % (Manual) Seg Neutrophils # Seg Neutrophils # Man Nucleated RBC % Lymphocytes # (Manual) Monocytes # (Manual) PT INR Heparin Anti-Xa Level POC ABG pO2 ABG pH POC ABG pCO2 ABG Hemoglobin ABG Oxyhemoglobin ABG pO2 ABG HCO3 ABG O2 Saturation ABG Base Excess ABG Potassium ABG Chloride ABG Glucose Oxyhemoglobin Sodium Potassium Chloride Carbon Dioxide BUN Creatinine Glucose POC Glucose 119 H 135 H 163 H Lactic Acid Calcium AST Phosphorus Total Protein Albumin C-Reactive Protein Arterial Blood Glucose Arterial Blood Ionized Calcium Urine WBC (Auto) Crossmatch 01/19/20 01/19/20 01/20/20 17:44 22:59 03:44 WBC 11.1 H RBC 2.77 L Hgb 8.4 L Hct 25.0 L MCHC RDW Plt Count MCH Lymph % (Auto) Lymph # Lymph # (Auto) Seg Neutrophils % 74.6 H Seg Neuts % (Manual) Lymphocytes % (Manual) Seg Neutrophils # 8.3 H Seg Neutrophils # Man Nucleated RBC % Lymphocytes # (Manual) Monocytes # (Manual) PT INR Heparin Anti-Xa Level POC ABG pO2 ABG pH POC ABG pCO2 ABG Hemoglobin ABG Oxyhemoglobin ABG pO2 ABG HCO3 ABG O2 Saturation ABG Base Excess ABG Potassium ABG Chloride ABG Glucose Oxyhemoglobin Sodium Potassium Chloride Carbon Dioxide BUN Creatinine Glucose POC Glucose 161 H 182 H Lactic Acid Calcium AST Phosphorus Total Protein Albumin C-Reactive Protein Arterial Blood Glucose Arterial Blood Ionized Calcium Urine WBC (Auto) Crossmatch 01/20/20 01/21/20 01/21/20 03:44 00:07 05:51 WBC RBC 2.84 L Hgb 8.6 L Hct 25.5 L MCHC RDW Plt Count 463 H MCH Lymph % (Auto) Lymph # Lymph # (Auto) Seg Neutrophils % 76.9 H Seg Neuts % (Manual) Lymphocytes % (Manual) Seg Neutrophils # 7.8 H Seg Neutrophils # Man Nucleated RBC % Lymphocytes # (Manual) Monocytes # (Manual) PT INR Heparin Anti-Xa Level POC ABG pO2 ABG pH POC ABG pCO2 ABG Hemoglobin ABG Oxyhemoglobin ABG pO2 ABG HCO3 ABG O2 Saturation ABG Base Excess ABG Potassium ABG Chloride ABG Glucose Oxyhemoglobin Sodium Potassium Chloride Carbon Dioxide BUN Creatinine 0.4 L Glucose POC Glucose 68 L Lactic Acid Calcium 7.9 L AST Phosphorus Total Protein 4.7 L Albumin 1.9 L C-Reactive Protein Arterial Blood Glucose Arterial Blood Ionized Calcium Urine WBC (Auto) Crossmatch 01/21/20 01/21/20 01/21/20 05:51 05:58 11:25 WBC RBC Hgb Hct MCHC RDW Plt Count MCH Lymph % (Auto) Lymph # Lymph # (Auto) Seg Neutrophils % Seg Neuts % (Manual) Lymphocytes % (Manual) Seg Neutrophils # Seg Neutrophils # Man Nucleated RBC % Lymphocytes # (Manual) Monocytes # (Manual) PT INR Heparin Anti-Xa Level POC ABG pO2 ABG pH POC ABG pCO2 ABG Hemoglobin ABG Oxyhemoglobin ABG pO2 ABG HCO3 ABG O2 Saturation ABG Base Excess ABG Potassium ABG Chloride ABG Glucose Oxyhemoglobin Sodium Potassium Chloride Carbon Dioxide 20 L BUN Creatinine 0.5 L Glucose 130 H POC Glucose 185 H 163 H Lactic Acid Calcium 7.6 L AST Phosphorus Total Protein 5.0 L Albumin 1.9 L C-Reactive Protein Arterial Blood Glucose Arterial Blood Ionized Calcium Urine WBC (Auto) Crossmatch 01/21/20 01/21/20 01/22/20 16:22 21:17 01:28 WBC RBC 2.60 L Hgb 8.0 L Hct 23.3 L MCHC RDW Plt Count MCH Lymph % (Auto) Lymph # Lymph # (Auto) Seg Neutrophils % 74.8 H Seg Neuts % (Manual) Lymphocytes % (Manual) Seg Neutrophils # Seg Neutrophils # Man Nucleated RBC % Lymphocytes # (Manual) Monocytes # (Manual) PT INR Heparin Anti-Xa Level POC ABG pO2 ABG pH POC ABG pCO2 ABG Hemoglobin ABG Oxyhemoglobin ABG pO2 ABG HCO3 ABG O2 Saturation ABG Base Excess ABG Potassium ABG Chloride ABG Glucose Oxyhemoglobin Sodium Potassium Chloride Carbon Dioxide BUN Creatinine Glucose POC Glucose 177 H 67 L Lactic Acid Calcium AST Phosphorus Total Protein Albumin C-Reactive Protein Arterial Blood Glucose Arterial Blood Ionized Calcium Urine WBC (Auto) Crossmatch 01/22/20 01/22/20 01/22/20 01:28 01:28 12:06 WBC RBC Hgb Hct MCHC RDW Plt Count MCH Lymph % (Auto) Lymph # Lymph # (Auto) Seg Neutrophils % Seg Neuts % (Manual) Lymphocytes % (Manual) Seg Neutrophils # Seg Neutrophils # Man Nucleated RBC % Lymphocytes # (Manual) Monocytes # (Manual) PT INR Heparin Anti-Xa Level POC ABG pO2 ABG pH POC ABG pCO2 ABG Hemoglobin ABG Oxyhemoglobin ABG pO2 ABG HCO3 ABG O2 Saturation ABG Base Excess ABG Potassium ABG Chloride ABG Glucose Oxyhemoglobin Sodium Potassium Chloride 107.6 H Carbon Dioxide BUN Creatinine 0.4 L Glucose 152 H POC Glucose 203 H 140 H Lactic Acid Calcium 7.5 L AST Phosphorus Total Protein 4.0 L Albumin 2.0 L C-Reactive Protein Arterial Blood Glucose Arterial Blood Ionized Calcium Urine WBC (Auto) Crossmatch 01/22/20 01/22/20 01/23/20 16:24 22:55 06:10 WBC RBC 2.68 L Hgb 8.6 L Hct 24.1 L MCHC 36 H RDW Plt Count MCH Lymph % (Auto) Lymph # Lymph # (Auto) Seg Neutrophils % Seg Neuts % (Manual) 71.0 H Lymphocytes % (Manual) Seg Neutrophils # Seg Neutrophils # Man Nucleated RBC % Lymphocytes # (Manual) Monocytes # (Manual) PT INR Heparin Anti-Xa Level POC ABG pO2 ABG pH POC ABG pCO2 ABG Hemoglobin ABG Oxyhemoglobin ABG pO2 ABG HCO3 ABG O2 Saturation ABG Base Excess ABG Potassium ABG Chloride ABG Glucose Oxyhemoglobin Sodium Potassium Chloride Carbon Dioxide BUN Creatinine Glucose POC Glucose 205 H 196 H Lactic Acid Calcium AST Phosphorus Total Protein Albumin C-Reactive Protein Arterial Blood Glucose Arterial Blood Ionized Calcium Urine WBC (Auto) Crossmatch 01/23/20 01/23/20 01/23/20 06:10 07:35 11:59 WBC RBC Hgb Hct MCHC RDW Plt Count MCH Lymph % (Auto) Lymph # Lymph # (Auto) Seg Neutrophils % Seg Neuts % (Manual) Lymphocytes % (Manual) Seg Neutrophils # Seg Neutrophils # Man Nucleated RBC % Lymphocytes # (Manual) Monocytes # (Manual) PT INR Heparin Anti-Xa Level POC ABG pO2 ABG pH POC ABG pCO2 ABG Hemoglobin ABG Oxyhemoglobin ABG pO2 ABG HCO3 ABG O2 Saturation ABG Base Excess ABG Potassium ABG Chloride ABG Glucose Oxyhemoglobin Sodium Potassium Chloride 108.8 H Carbon Dioxide BUN Creatinine 0.4 L Glucose 105 H POC Glucose 111 H 123 H Lactic Acid Calcium 8.0 L AST Phosphorus Total Protein 4.9 L D Albumin 2.0 L C-Reactive Protein Arterial Blood Glucose Arterial Blood Ionized Calcium Urine WBC (Auto) Crossmatch 01/23/20 01/24/20 01/24/20 22:45 11:24 16:41 WBC RBC Hgb Hct MCHC RDW Plt Count MCH Lymph % (Auto) Lymph # Lymph # (Auto) Seg Neutrophils % Seg Neuts % (Manual) Lymphocytes % (Manual) Seg Neutrophils # Seg Neutrophils # Man Nucleated RBC % Lymphocytes # (Manual) Monocytes # (Manual) PT INR Heparin Anti-Xa Level POC ABG pO2 ABG pH POC ABG pCO2 ABG Hemoglobin ABG Oxyhemoglobin ABG pO2 ABG HCO3 ABG O2 Saturation ABG Base Excess ABG Potassium ABG Chloride ABG Glucose Oxyhemoglobin Sodium Potassium Chloride Carbon Dioxide BUN Creatinine Glucose POC Glucose 180 H 182 H 177 H Lactic Acid Calcium AST Phosphorus Total Protein Albumin C-Reactive Protein Arterial Blood Glucose Arterial Blood Ionized Calcium Urine WBC (Auto) Crossmatch 01/24/20 01/25/20 01/25/20 23:11 07:12 11:35 WBC RBC Hgb Hct MCHC RDW Plt Count MCH Lymph % (Auto) Lymph # Lymph # (Auto) Seg Neutrophils % Seg Neuts % (Manual) Lymphocytes % (Manual) Seg Neutrophils # Seg Neutrophils # Man Nucleated RBC % Lymphocytes # (Manual) Monocytes # (Manual) PT INR Heparin Anti-Xa Level POC ABG pO2 ABG pH POC ABG pCO2 ABG Hemoglobin ABG Oxyhemoglobin ABG pO2 ABG HCO3 ABG O2 Saturation ABG Base Excess ABG Potassium ABG Chloride ABG Glucose Oxyhemoglobin Sodium Potassium Chloride Carbon Dioxide BUN Creatinine Glucose POC Glucose 142 H 135 H 142 H Lactic Acid Calcium AST Phosphorus Total Protein Albumin C-Reactive Protein Arterial Blood Glucose Arterial Blood Ionized Calcium Urine WBC (Auto) Crossmatch 01/25/20 01/26/20 01/26/20 16:33 00:04 11:35 WBC RBC Hgb Hct MCHC RDW Plt Count MCH Lymph % (Auto) Lymph # Lymph # (Auto) Seg Neutrophils % Seg Neuts % (Manual) Lymphocytes % (Manual) Seg Neutrophils # Seg Neutrophils # Man Nucleated RBC % Lymphocytes # (Manual) Monocytes # (Manual) PT INR Heparin Anti-Xa Level POC ABG pO2 ABG pH POC ABG pCO2 ABG Hemoglobin ABG Oxyhemoglobin ABG pO2 ABG HCO3 ABG O2 Saturation ABG Base Excess ABG Potassium ABG Chloride ABG Glucose Oxyhemoglobin Sodium Potassium Chloride Carbon Dioxide BUN Creatinine Glucose POC Glucose 247 H 233 H 200 H Lactic Acid Calcium AST Phosphorus Total Protein Albumin C-Reactive Protein Arterial Blood Glucose Arterial Blood Ionized Calcium Urine WBC (Auto) Crossmatch 01/26/20 01/26/20 01/26/20 16:30 16:30 17:19 WBC RBC Hgb 7.4 L Hct 22.0 L MCHC RDW Plt Count MCH Lymph % (Auto) Lymph # Lymph # (Auto) Seg Neutrophils % Seg Neuts % (Manual) Lymphocytes % (Manual) Seg Neutrophils # Seg Neutrophils # Man Nucleated RBC % Lymphocytes # (Manual) Monocytes # (Manual) PT 18.4 H INR 1.50 H Heparin Anti-Xa Level POC ABG pO2 ABG pH POC ABG pCO2 ABG Hemoglobin ABG Oxyhemoglobin ABG pO2 ABG HCO3 ABG O2 Saturation ABG Base Excess ABG Potassium ABG Chloride ABG Glucose Oxyhemoglobin Sodium Potassium Chloride Carbon Dioxide BUN Creatinine Glucose POC Glucose 67 L Lactic Acid Calcium AST Phosphorus Total Protein Albumin C-Reactive Protein Arterial Blood Glucose Arterial Blood Ionized Calcium Urine WBC (Auto) Crossmatch 01/26/20 01/26/20 01/27/20 20:24 21:32 00:16 WBC RBC Hgb Hct MCHC RDW Plt Count MCH Lymph % (Auto) Lymph # Lymph # (Auto) Seg Neutrophils % Seg Neuts % (Manual) Lymphocytes % (Manual) Seg Neutrophils # Seg Neutrophils # Man Nucleated RBC % Lymphocytes # (Manual) Monocytes # (Manual) PT INR Heparin Anti-Xa Level POC ABG pO2 51.8 L ABG pH POC ABG pCO2 ABG Hemoglobin 8.5 L ABG Oxyhemoglobin 84.7 L ABG pO2 ABG HCO3 ABG O2 Saturation ABG Base Excess ABG Potassium ABG Chloride ABG Glucose Oxyhemoglobin Sodium Potassium Chloride Carbon Dioxide BUN Creatinine Glucose POC Glucose 162 H 141 H Lactic Acid Calcium AST Phosphorus Total Protein Albumin C-Reactive Protein Arterial Blood Glucose Arterial Blood Ionized Calcium Urine WBC (Auto) Crossmatch 01/27/20 01/27/20 01/27/20 01:42 02:18 05:57 WBC RBC Hgb Hct MCHC RDW Plt Count MCH Lymph % (Auto) Lymph # Lymph # (Auto) Seg Neutrophils % Seg Neuts % (Manual) Lymphocytes % (Manual) Seg Neutrophils # Seg Neutrophils # Man Nucleated RBC % Lymphocytes # (Manual) Monocytes # (Manual) PT INR Heparin Anti-Xa Level 2.00 H POC ABG pO2 ABG pH POC ABG pCO2 ABG Hemoglobin ABG Oxyhemoglobin ABG pO2 ABG HCO3 ABG O2 Saturation ABG Base Excess ABG Potassium ABG Chloride ABG Glucose Oxyhemoglobin Sodium Potassium Chloride Carbon Dioxide BUN Creatinine Glucose POC Glucose 183 H 124 H Lactic Acid Calcium AST Phosphorus Total Protein Albumin C-Reactive Protein Arterial Blood Glucose Arterial Blood Ionized Calcium Urine WBC (Auto) Crossmatch 01/27/20 01/27/20 01/27/20 06:30 06:30 12:23 WBC RBC 2.75 L Hgb 8.4 L Hct 24.9 L MCHC RDW 16.0 H Plt Count 474 H MCH Lymph % (Auto) 12.7 L Lymph # Lymph # (Auto) Seg Neutrophils % 83.2 H Seg Neuts % (Manual) Lymphocytes % (Manual) Seg Neutrophils # 8.4 H Seg Neutrophils # Man Nucleated RBC % Lymphocytes # (Manual) Monocytes # (Manual) PT INR Heparin Anti-Xa Level POC ABG pO2 ABG pH POC ABG pCO2 ABG Hemoglobin ABG Oxyhemoglobin ABG pO2 ABG HCO3 ABG O2 Saturation ABG Base Excess ABG Potassium ABG Chloride ABG Glucose Oxyhemoglobin Sodium Potassium 3.5 L Chloride 110.2 H Carbon Dioxide BUN Creatinine 0.4 L Glucose 101 H POC Glucose 126 H Lactic Acid Calcium 7.8 L AST Phosphorus Total Protein Albumin C-Reactive Protein Arterial Blood Glucose Arterial Blood Ionized Calcium Urine WBC (Auto) Crossmatch 01/27/20 01/27/20 01/28/20 17:31 23:40 00:00 WBC RBC Hgb Hct MCHC RDW Plt Count MCH Lymph % (Auto) Lymph # Lymph # (Auto) Seg Neutrophils % Seg Neuts % (Manual) Lymphocytes % (Manual) Seg Neutrophils # Seg Neutrophils # Man Nucleated RBC % Lymphocytes # (Manual) Monocytes # (Manual) PT INR Heparin Anti-Xa Level 2.00 H POC ABG pO2 ABG pH POC ABG pCO2 ABG Hemoglobin ABG Oxyhemoglobin ABG pO2 ABG HCO3 ABG O2 Saturation ABG Base Excess ABG Potassium ABG Chloride ABG Glucose Oxyhemoglobin Sodium Potassium Chloride Carbon Dioxide BUN Creatinine Glucose POC Glucose 133 H 136 H Lactic Acid Calcium AST Phosphorus Total Protein Albumin C-Reactive Protein Arterial Blood Glucose Arterial Blood Ionized Calcium Urine WBC (Auto) Crossmatch 01/28/20 01/28/20 01/28/20 04:26 04:26 05:35 WBC RBC Hgb 9.6 L Hct 28.5 L MCHC RDW Plt Count 508 H MCH Lymph % (Auto) Lymph # Lymph # (Auto) Seg Neutrophils % Seg Neuts % (Manual) Lymphocytes % (Manual) Seg Neutrophils # Seg Neutrophils # Man Nucleated RBC % Lymphocytes # (Manual) Monocytes # (Manual) PT INR Heparin Anti-Xa Level POC ABG pO2 ABG pH POC ABG pCO2 ABG Hemoglobin ABG Oxyhemoglobin ABG pO2 ABG HCO3 ABG O2 Saturation ABG Base Excess ABG Potassium ABG Chloride ABG Glucose Oxyhemoglobin Sodium Potassium Chloride Carbon Dioxide 19 L BUN 20 H Creatinine 0.5 L Glucose 103 H POC Glucose 135 H Lactic Acid Calcium 7.9 L AST Phosphorus Total Protein Albumin C-Reactive Protein Arterial Blood Glucose Arterial Blood Ionized Calcium Urine WBC (Auto) Crossmatch 01/28/20 01/28/20 01/28/20 08:50 11:10 11:51 WBC RBC Hgb Hct MCHC RDW Plt Count MCH Lymph % (Auto) Lymph # Lymph # (Auto) Seg Neutrophils % Seg Neuts % (Manual) Lymphocytes % (Manual) Seg Neutrophils # Seg Neutrophils # Man Nucleated RBC % Lymphocytes # (Manual) Monocytes # (Manual) PT INR Heparin Anti-Xa Level 0.74 H POC ABG pO2 67.2 L ABG pH POC ABG pCO2 ABG Hemoglobin 9.3 L ABG Oxyhemoglobin ABG pO2 ABG HCO3 ABG O2 Saturation ABG Base Excess ABG Potassium ABG Chloride ABG Glucose Oxyhemoglobin Sodium Potassium Chloride Carbon Dioxide BUN Creatinine Glucose POC Glucose 160 H Lactic Acid Calcium AST Phosphorus Total Protein Albumin C-Reactive Protein Arterial Blood Glucose Arterial Blood Ionized Calcium Urine WBC (Auto) Crossmatch 01/28/20 01/28/20 01/29/20 17:19 23:53 03:52 WBC RBC Hgb Hct MCHC RDW Plt Count MCH Lymph % (Auto) Lymph # Lymph # (Auto) Seg Neutrophils % Seg Neuts % (Manual) Lymphocytes % (Manual) Seg Neutrophils # Seg Neutrophils # Man Nucleated RBC % Lymphocytes # (Manual) Monocytes # (Manual) PT INR Heparin Anti-Xa Level POC ABG pO2 ABG pH 7.510 H POC ABG pCO2 ABG Hemoglobin 7.3 L ABG Oxyhemoglobin ABG pO2 357.0 H ABG HCO3 19.6 L ABG O2 Saturation 99.6 H ABG Base Excess -2.9 L ABG Potassium ABG Chloride ABG Glucose Oxyhemoglobin Sodium Potassium Chloride Carbon Dioxide BUN Creatinine Glucose POC Glucose 177 H 142 H Lactic Acid Calcium AST Phosphorus Total Protein Albumin C-Reactive Protein Arterial Blood Glucose Arterial Blood Ionized Calcium Urine WBC (Auto) Crossmatch 01/29/20 01/29/20 01/29/20 04:58 04:58 06:01 WBC 13.1 H RBC 2.75 L Hgb 8.6 L Hct 25.6 L MCHC RDW 17.7 H Plt Count MCH Lymph % (Auto) Lymph # Lymph # (Auto) Seg Neutrophils % Seg Neuts % (Manual) 91.0 H Lymphocytes % (Manual) 6.0 L Seg Neutrophils # Seg Neutrophils # Man 11.9 H Nucleated RBC % 1.0 H Lymphocytes # (Manual) 0.8 L Monocytes # (Manual) PT INR Heparin Anti-Xa Level POC ABG pO2 ABG pH POC ABG pCO2 ABG Hemoglobin ABG Oxyhemoglobin ABG pO2 ABG HCO3 ABG O2 Saturation ABG Base Excess ABG Potassium ABG Chloride ABG Glucose Oxyhemoglobin Sodium 148 H Potassium 3.5 L D Chloride 113.2 H Carbon Dioxide 21 L BUN 20 H Creatinine Glucose 137 H POC Glucose 167 H Lactic Acid Calcium 8.1 L AST Phosphorus Total Protein Albumin C-Reactive Protein Arterial Blood Glucose Arterial Blood Ionized Calcium Urine WBC (Auto) Crossmatch 01/29/20 01/29/20 01/29/20 11:45 17:52 23:49 WBC RBC Hgb Hct MCHC RDW Plt Count MCH Lymph % (Auto) Lymph # Lymph # (Auto) Seg Neutrophils % Seg Neuts % (Manual) Lymphocytes % (Manual) Seg Neutrophils # Seg Neutrophils # Man Nucleated RBC % Lymphocytes # (Manual) Monocytes # (Manual) PT INR Heparin Anti-Xa Level POC ABG pO2 ABG pH POC ABG pCO2 ABG Hemoglobin ABG Oxyhemoglobin ABG pO2 ABG HCO3 ABG O2 Saturation ABG Base Excess ABG Potassium ABG Chloride ABG Glucose Oxyhemoglobin Sodium Potassium Chloride Carbon Dioxide BUN Creatinine Glucose POC Glucose 185 H 226 H 141 H Lactic Acid Calcium AST Phosphorus Total Protein Albumin C-Reactive Protein Arterial Blood Glucose Arterial Blood Ionized Calcium Urine WBC (Auto) Crossmatch 01/29/20 01/30/20 01/30/20 Unknown 03:24 04:00 WBC RBC Hgb 7.8 L Hct 23.5 L MCHC RDW Plt Count MCH Lymph % (Auto) Lymph # Lymph # (Auto) Seg Neutrophils % Seg Neuts % (Manual) Lymphocytes % (Manual) Seg Neutrophils # Seg Neutrophils # Man Nucleated RBC % Lymphocytes # (Manual) Monocytes # (Manual) PT INR Heparin Anti-Xa Level POC ABG pO2 ABG pH 7.485 H POC ABG pCO2 ABG Hemoglobin 6.7 L ABG Oxyhemoglobin ABG pO2 102.0 H ABG HCO3 ABG O2 Saturation ABG Base Excess ABG Potassium ABG Chloride ABG Glucose Oxyhemoglobin Sodium Potassium Chloride Carbon Dioxide BUN Creatinine Glucose POC Glucose Lactic Acid Calcium AST Phosphorus Total Protein Albumin C-Reactive Protein 14.80 H Arterial Blood Glucose Arterial Blood Ionized Calcium Urine WBC (Auto) Crossmatch 01/30/20 01/30/20 01/30/20 05:50 11:15 17:07 WBC RBC Hgb Hct MCHC RDW Plt Count MCH Lymph % (Auto) Lymph # Lymph # (Auto) Seg Neutrophils % Seg Neuts % (Manual) Lymphocytes % (Manual) Seg Neutrophils # Seg Neutrophils # Man Nucleated RBC % Lymphocytes # (Manual) Monocytes # (Manual) PT INR Heparin Anti-Xa Level POC ABG pO2 ABG pH POC ABG pCO2 ABG Hemoglobin ABG Oxyhemoglobin ABG pO2 ABG HCO3 ABG O2 Saturation ABG Base Excess ABG Potassium ABG Chloride ABG Glucose Oxyhemoglobin Sodium Potassium Chloride Carbon Dioxide BUN Creatinine Glucose POC Glucose 122 H 207 H 124 H Lactic Acid Calcium AST Phosphorus Total Protein Albumin C-Reactive Protein Arterial Blood Glucose Arterial Blood Ionized Calcium Urine WBC (Auto) Crossmatch 01/30/20 01/31/20 01/31/20 17:08 00:10 04:52 WBC RBC Hgb Hct MCHC RDW Plt Count MCH Lymph % (Auto) Lymph # Lymph # (Auto) Seg Neutrophils % Seg Neuts % (Manual) Lymphocytes % (Manual) Seg Neutrophils # Seg Neutrophils # Man Nucleated RBC % Lymphocytes # (Manual) Monocytes # (Manual) PT INR Heparin Anti-Xa Level POC ABG pO2 ABG pH 7.504 H 7.486 H POC ABG pCO2 ABG Hemoglobin 7.4 L 6.2 L ABG Oxyhemoglobin ABG pO2 169.2 H 121.7 H ABG HCO3 27.1 H ABG O2 Saturation 99.1 H ABG Base Excess 3.4 H ABG Potassium ABG Chloride ABG Glucose Oxyhemoglobin Sodium Potassium Chloride Carbon Dioxide BUN Creatinine Glucose POC Glucose 191 H Lactic Acid Calcium AST Phosphorus Total Protein Albumin C-Reactive Protein Arterial Blood Glucose Arterial Blood Ionized Calcium Urine WBC (Auto) Crossmatch 01/31/20 01/31/20 01/31/20 05:37 11:59 12:40 WBC RBC 2.41 L Hgb 7.5 L Hct 22.3 L MCHC RDW 22.2 H Plt Count MCH Lymph % (Auto) Lymph # Lymph # (Auto) Seg Neutrophils % Seg Neuts % (Manual) 94.0 H Lymphocytes % (Manual) 2.0 L Seg Neutrophils # Seg Neutrophils # Man 9.4 H Nucleated RBC % Lymphocytes # (Manual) 0.2 L Monocytes # (Manual) PT INR Heparin Anti-Xa Level POC ABG pO2 ABG pH POC ABG pCO2 ABG Hemoglobin ABG Oxyhemoglobin ABG pO2 ABG HCO3 ABG O2 Saturation ABG Base Excess ABG Potassium ABG Chloride ABG Glucose Oxyhemoglobin Sodium Potassium Chloride Carbon Dioxide BUN Creatinine Glucose POC Glucose 175 H 220 H Lactic Acid Calcium AST Phosphorus Total Protein Albumin C-Reactive Protein Arterial Blood Glucose Arterial Blood Ionized Calcium Urine WBC (Auto) Crossmatch 01/31/20 01/31/20 01/31/20 12:40 14:40 18:18 WBC RBC Hgb Hct MCHC RDW Plt Count MCH Lymph % (Auto) Lymph # Lymph # (Auto) Seg Neutrophils % Seg Neuts % (Manual) Lymphocytes % (Manual) Seg Neutrophils # Seg Neutrophils # Man Nucleated RBC % Lymphocytes # (Manual) Monocytes # (Manual) PT INR Heparin Anti-Xa Level POC ABG pO2 124.7 H ABG pH 7.542 H POC ABG pCO2 ABG Hemoglobin 7.8 L ABG Oxyhemoglobin ABG pO2 ABG HCO3 ABG O2 Saturation ABG Base Excess ABG Potassium ABG Chloride ABG Glucose Oxyhemoglobin Sodium 151 H Potassium 2.1 L* D Chloride 108.9 H Carbon Dioxide BUN 22 H Creatinine Glucose 194 H POC Glucose 181 H Lactic Acid Calcium 8.1 L AST Phosphorus Total Protein 4.8 L Albumin 2.3 L C-Reactive Protein Arterial Blood Glucose Arterial Blood Ionized Calcium Urine WBC (Auto) Crossmatch 02/01/20 02/01/20 02/01/20 00:11 03:14 04:32 WBC 11.9 H RBC 2.47 L Hgb 7.6 L Hct 22.8 L MCHC RDW 22.7 H Plt Count MCH Lymph % (Auto) Lymph # Lymph # (Auto) Seg Neutrophils % Seg Neuts % (Manual) 90.0 H Lymphocytes % (Manual) 5.0 L Seg Neutrophils # Seg Neutrophils # Man 10.7 H Nucleated RBC % Lymphocytes # (Manual) 0.6 L Monocytes # (Manual) PT INR Heparin Anti-Xa Level POC ABG pO2 ABG pH 7.564 H POC ABG pCO2 ABG Hemoglobin 7.6 L ABG Oxyhemoglobin ABG pO2 124.1 H ABG HCO3 29.6 H ABG O2 Saturation ABG Base Excess 7.0 H ABG Potassium ABG Chloride ABG Glucose Oxyhemoglobin Sodium Potassium Chloride Carbon Dioxide BUN Creatinine Glucose POC Glucose 190 H Lactic Acid Calcium AST Phosphorus Total Protein Albumin C-Reactive Protein Arterial Blood Glucose Arterial Blood Ionized Calcium Urine WBC (Auto) Crossmatch 02/01/20 02/01/20 02/01/20 04:32 05:28 11:56 WBC RBC Hgb Hct MCHC RDW Plt Count MCH Lymph % (Auto) Lymph # Lymph # (Auto) Seg Neutrophils % Seg Neuts % (Manual) Lymphocytes % (Manual) Seg Neutrophils # Seg Neutrophils # Man Nucleated RBC % Lymphocytes # (Manual) Monocytes # (Manual) PT INR Heparin Anti-Xa Level POC ABG pO2 ABG pH POC ABG pCO2 ABG Hemoglobin ABG Oxyhemoglobin ABG pO2 ABG HCO3 ABG O2 Saturation ABG Base Excess ABG Potassium ABG Chloride ABG Glucose Oxyhemoglobin Sodium 149 H Potassium 2.6 L* D Chloride Carbon Dioxide 33 H BUN 23 H Creatinine 0.5 L Glucose 174 H POC Glucose 187 H 195 H Lactic Acid Calcium 8.0 L AST Phosphorus 1.60 L Total Protein Albumin C-Reactive Protein Arterial Blood Glucose Arterial Blood Ionized Calcium Urine WBC (Auto) Crossmatch 02/01/20 02/01/20 02/02/20 18:15 23:35 04:33 WBC RBC Hgb Hct MCHC RDW Plt Count MCH Lymph % (Auto) Lymph # Lymph # (Auto) Seg Neutrophils % Seg Neuts % (Manual) Lymphocytes % (Manual) Seg Neutrophils # Seg Neutrophils # Man Nucleated RBC % Lymphocytes # (Manual) Monocytes # (Manual) PT INR Heparin Anti-Xa Level POC ABG pO2 ABG pH 7.549 H POC ABG pCO2 ABG Hemoglobin 9.8 L ABG Oxyhemoglobin ABG pO2 ABG HCO3 ABG O2 Saturation ABG Base Excess ABG Potassium ABG Chloride ABG Glucose Oxyhemoglobin Sodium Potassium Chloride Carbon Dioxide BUN Creatinine Glucose POC Glucose 226 H 252 H Lactic Acid Calcium AST Phosphorus Total Protein Albumin C-Reactive Protein Arterial Blood Glucose Arterial Blood Ionized Calcium Urine WBC (Auto) Crossmatch 02/02/20 02/02/20 02/02/20 05:25 05:25 05:40 WBC 15.5 H RBC 2.43 L Hgb 7.6 L Hct 22.9 L MCHC RDW 23.6 H Plt Count MCH Lymph % (Auto) Lymph # Lymph # (Auto) Seg Neutrophils % Seg Neuts % (Manual) 89.0 H Lymphocytes % (Manual) 3.0 L Seg Neutrophils # Seg Neutrophils # Man 13.8 H Nucleated RBC % Lymphocytes # (Manual) 0.5 L Monocytes # (Manual) 0.9 H PT INR Heparin Anti-Xa Level POC ABG pO2 ABG pH POC ABG pCO2 ABG Hemoglobin ABG Oxyhemoglobin ABG pO2 ABG HCO3 ABG O2 Saturation ABG Base Excess ABG Potassium ABG Chloride ABG Glucose Oxyhemoglobin Sodium Potassium 2.6 L* Chloride Carbon Dioxide 33 H BUN 26 H Creatinine Glucose 175 H POC Glucose 181 H Lactic Acid Calcium 7.9 L AST Phosphorus Total Protein Albumin C-Reactive Protein Arterial Blood Glucose Arterial Blood Ionized Calcium Urine WBC (Auto) Crossmatch 02/02/20 02/02/20 02/02/20 11:55 14:45 17:18 WBC RBC Hgb Hct MCHC RDW Plt Count MCH Lymph % (Auto) Lymph # Lymph # (Auto) Seg Neutrophils % Seg Neuts % (Manual) Lymphocytes % (Manual) Seg Neutrophils # Seg Neutrophils # Man Nucleated RBC % Lymphocytes # (Manual) Monocytes # (Manual) PT INR Heparin Anti-Xa Level POC ABG pO2 ABG pH 7.56 H POC ABG pCO2 ABG Hemoglobin 7.6 L ABG Oxyhemoglobin ABG pO2 ABG HCO3 ABG O2 Saturation ABG Base Excess ABG Potassium ABG Chloride ABG Glucose Oxyhemoglobin Sodium Potassium Chloride Carbon Dioxide BUN Creatinine Glucose POC Glucose 226 H 227 H Lactic Acid Calcium AST Phosphorus Total Protein Albumin C-Reactive Protein Arterial Blood Glucose Arterial Blood Ionized Calcium Urine WBC (Auto) Crossmatch 02/02/20 02/03/20 02/03/20 20:54 00:02 05:14 WBC 18.7 H RBC 2.45 L Hgb 7.6 L Hct 23.2 L MCHC RDW 23.5 H Plt Count MCH Lymph % (Auto) Lymph # Lymph # (Auto) Seg Neutrophils % Seg Neuts % (Manual) 94.0 H Lymphocytes % (Manual) 3.0 L Seg Neutrophils # Seg Neutrophils # Man 17.6 H Nucleated RBC % Lymphocytes # (Manual) 0.6 L Monocytes # (Manual) PT INR Heparin Anti-Xa Level POC ABG pO2 ABG pH POC ABG pCO2 ABG Hemoglobin ABG Oxyhemoglobin ABG pO2 ABG HCO3 ABG O2 Saturation ABG Base Excess ABG Potassium ABG Chloride ABG Glucose Oxyhemoglobin Sodium Potassium 3.2 L D Chloride Carbon Dioxide BUN Creatinine Glucose POC Glucose 204 H Lactic Acid Calcium AST Phosphorus Total Protein Albumin C-Reactive Protein Arterial Blood Glucose Arterial Blood Ionized Calcium Urine WBC (Auto) Crossmatch 02/03/20 02/03/20 02/03/20 05:14 05:14 05:20 WBC RBC Hgb Hct MCHC RDW Plt Count MCH Lymph % (Auto) Lymph # Lymph # (Auto) Seg Neutrophils % Seg Neuts % (Manual) Lymphocytes % (Manual) Seg Neutrophils # Seg Neutrophils # Man Nucleated RBC % Lymphocytes # (Manual) Monocytes # (Manual) PT INR Heparin Anti-Xa Level POC ABG pO2 ABG pH POC ABG pCO2 ABG Hemoglobin ABG Oxyhemoglobin ABG pO2 ABG HCO3 ABG O2 Saturation ABG Base Excess ABG Potassium ABG Chloride ABG Glucose Oxyhemoglobin Sodium Potassium 3.1 L Chloride Carbon Dioxide 33 H BUN 29 H Creatinine 0.5 L Glucose 160 H POC Glucose 146 H Lactic Acid Calcium 7.9 L AST Phosphorus 2.30 L Total Protein 4.8 L Albumin 2.4 L C-Reactive Protein Arterial Blood Glucose Arterial Blood Ionized Calcium Urine WBC (Auto) Crossmatch 02/03/20 02/03/20 02/03/20 12:35 18:14 23:26 WBC RBC Hgb Hct MCHC RDW Plt Count MCH Lymph % (Auto) Lymph # Lymph # (Auto) Seg Neutrophils % Seg Neuts % (Manual) Lymphocytes % (Manual) Seg Neutrophils # Seg Neutrophils # Man Nucleated RBC % Lymphocytes # (Manual) Monocytes # (Manual) PT INR Heparin Anti-Xa Level POC ABG pO2 ABG pH POC ABG pCO2 ABG Hemoglobin ABG Oxyhemoglobin ABG pO2 ABG HCO3 ABG O2 Saturation ABG Base Excess ABG Potassium ABG Chloride ABG Glucose Oxyhemoglobin Sodium Potassium Chloride Carbon Dioxide BUN Creatinine Glucose POC Glucose 219 H 248 H 173 H Lactic Acid Calcium AST Phosphorus Total Protein Albumin C-Reactive Protein Arterial Blood Glucose Arterial Blood Ionized Calcium Urine WBC (Auto) Crossmatch 02/04/20 02/04/20 02/04/20 05:34 05:36 06:51 WBC RBC Hgb Hct MCHC RDW Plt Count MCH Lymph % (Auto) Lymph # Lymph # (Auto) Seg Neutrophils % Seg Neuts % (Manual) Lymphocytes % (Manual) Seg Neutrophils # Seg Neutrophils # Man Nucleated RBC % Lymphocytes # (Manual) Monocytes # (Manual) PT INR Heparin Anti-Xa Level POC ABG pO2 ABG pH POC ABG pCO2 ABG Hemoglobin ABG Oxyhemoglobin ABG pO2 ABG HCO3 ABG O2 Saturation ABG Base Excess ABG Potassium ABG Chloride ABG Glucose Oxyhemoglobin Sodium Potassium Chloride Carbon Dioxide BUN Creatinine Glucose POC Glucose 56 L 64 L 127 H Lactic Acid Calcium AST Phosphorus Total Protein Albumin C-Reactive Protein Arterial Blood Glucose Arterial Blood Ionized Calcium Urine WBC (Auto) Crossmatch 02/04/20 02/04/20 02/04/20 11:57 13:42 13:53 WBC 19.2 H RBC 2.48 L Hgb 7.8 L Hct 23.5 L MCHC RDW 24.2 H Plt Count MCH Lymph % (Auto) Lymph # Lymph # (Auto) Seg Neutrophils % Seg Neuts % (Manual) 97.0 H Lymphocytes % (Manual) 2.0 L Seg Neutrophils # Seg Neutrophils # Man 18.6 H Nucleated RBC % Lymphocytes # (Manual) 0.4 L Monocytes # (Manual) PT INR Heparin Anti-Xa Level POC ABG pO2 118.2 H ABG pH 7.525 H POC ABG pCO2 ABG Hemoglobin 8.7 L ABG Oxyhemoglobin ABG pO2 ABG HCO3 ABG O2 Saturation ABG Base Excess ABG Potassium 2.8 L ABG Chloride ABG Glucose 185 H Oxyhemoglobin Sodium Potassium Chloride Carbon Dioxide BUN Creatinine Glucose POC Glucose 224 H Lactic Acid Calcium AST Phosphorus Total Protein Albumin C-Reactive Protein Arterial Blood Glucose 185 H Arterial Blood Ionized Calcium 4.5 L Urine WBC (Auto) Crossmatch 02/04/20 02/04/20 02/04/20 13:53 18:15 23:35 WBC RBC Hgb Hct MCHC RDW Plt Count MCH Lymph % (Auto) Lymph # Lymph # (Auto) Seg Neutrophils % Seg Neuts % (Manual) Lymphocytes % (Manual) Seg Neutrophils # Seg Neutrophils # Man Nucleated RBC % Lymphocytes # (Manual) Monocytes # (Manual) PT INR Heparin Anti-Xa Level POC ABG pO2 ABG pH POC ABG pCO2 ABG Hemoglobin ABG Oxyhemoglobin ABG pO2 ABG HCO3 ABG O2 Saturation ABG Base Excess ABG Potassium ABG Chloride ABG Glucose Oxyhemoglobin Sodium 147 H Potassium 2.8 L* Chloride Carbon Dioxide 38 H BUN 33 H Creatinine 0.5 L Glucose 202 H POC Glucose 215 H 197 H Lactic Acid Calcium AST Phosphorus Total Protein Albumin C-Reactive Protein Arterial Blood Glucose Arterial Blood Ionized Calcium Urine WBC (Auto) Crossmatch 02/05/20 02/05/20 02/05/20 01:03 04:00 04:00 WBC 26.7 H RBC 2.59 L Hgb 8.1 L Hct 24.6 L MCHC RDW 24.1 H Plt Count MCH Lymph % (Auto) 1.6 L Lymph # Lymph # (Auto) 0.4 L Seg Neutrophils % Seg Neuts % (Manual) Lymphocytes % (Manual) Seg Neutrophils # 25.9 H Seg Neutrophils # Man Nucleated RBC % Lymphocytes # (Manual) Monocytes # (Manual) PT INR Heparin Anti-Xa Level POC ABG pO2 ABG pH POC ABG pCO2 ABG Hemoglobin 7.1 L ABG Oxyhemoglobin ABG pO2 50.7 L ABG HCO3 29.6 H ABG O2 Saturation 82.7 L ABG Base Excess 4.8 H ABG Potassium ABG Chloride ABG Glucose Oxyhemoglobin 81.0 L Sodium 146 H Potassium Chloride Carbon Dioxide 32 H BUN 35 H Creatinine 0.5 L Glucose 226 H POC Glucose Lactic Acid Calcium AST Phosphorus Total Protein 5.1 L Albumin 2.2 L C-Reactive Protein Arterial Blood Glucose Arterial Blood Ionized Calcium Urine WBC (Auto) Crossmatch 02/05/20 02/05/20 02/06/20 05:32 17:56 00:19 WBC RBC Hgb Hct MCHC RDW Plt Count MCH Lymph % (Auto) Lymph # Lymph # (Auto) Seg Neutrophils % Seg Neuts % (Manual) Lymphocytes % (Manual) Seg Neutrophils # Seg Neutrophils # Man Nucleated RBC % Lymphocytes # (Manual) Monocytes # (Manual) PT INR Heparin Anti-Xa Level POC ABG pO2 ABG pH POC ABG pCO2 ABG Hemoglobin ABG Oxyhemoglobin ABG pO2 ABG HCO3 ABG O2 Saturation ABG Base Excess ABG Potassium ABG Chloride ABG Glucose Oxyhemoglobin Sodium Potassium Chloride Carbon Dioxide BUN Creatinine Glucose POC Glucose 239 H 175 H 309 H Lactic Acid Calcium AST Phosphorus Total Protein Albumin C-Reactive Protein Arterial Blood Glucose Arterial Blood Ionized Calcium Urine WBC (Auto) Crossmatch 02/06/20 02/06/20 02/06/20 04:26 04:27 05:11 WBC RBC Hgb Hct MCHC RDW Plt Count MCH Lymph % (Auto) Lymph # Lymph # (Auto) Seg Neutrophils % Seg Neuts % (Manual) Lymphocytes % (Manual) Seg Neutrophils # Seg Neutrophils # Man Nucleated RBC % Lymphocytes # (Manual) Monocytes # (Manual) PT INR Heparin Anti-Xa Level POC ABG pO2 175.3 H 157.2 H ABG pH 7.502 H 7.551 H POC ABG pCO2 ABG Hemoglobin 10.8 L 7.3 L ABG Oxyhemoglobin 98.3 H ABG pO2 ABG HCO3 ABG O2 Saturation ABG Base Excess ABG Potassium 3.3 L ABG Chloride 109.0 H ABG Glucose 148 H Oxyhemoglobin Sodium 148 H Potassium 3.0 L Chloride 107.3 H Carbon Dioxide 33 H BUN 33 H Creatinine 0.5 L Glucose 283 H POC Glucose Lactic Acid Calcium 7.9 L AST Phosphorus Total Protein 3.6 L D Albumin 1.2 L C-Reactive Protein Arterial Blood Glucose 148 H Arterial Blood Ionized Calcium Urine WBC (Auto) Crossmatch 02/06/20 02/06/20 02/06/20 05:40 08:45 11:52 WBC 16.3 H RBC 2.12 L Hgb 6.6 L Hct 20.3 L MCHC RDW 24.4 H Plt Count MCH Lymph % (Auto) Lymph # Lymph # (Auto) Seg Neutrophils % Seg Neuts % (Manual) 98.0 H Lymphocytes % (Manual) 1.0 L Seg Neutrophils # Seg Neutrophils # Man 16.0 H Nucleated RBC % Lymphocytes # (Manual) 0.2 L Monocytes # (Manual) PT INR Heparin Anti-Xa Level POC ABG pO2 ABG pH POC ABG pCO2 ABG Hemoglobin ABG Oxyhemoglobin ABG pO2 ABG HCO3 ABG O2 Saturation ABG Base Excess ABG Potassium ABG Chloride ABG Glucose Oxyhemoglobin Sodium Potassium Chloride Carbon Dioxide BUN Creatinine Glucose POC Glucose 347 H 132 H Lactic Acid Calcium AST Phosphorus Total Protein Albumin C-Reactive Protein Arterial Blood Glucose Arterial Blood Ionized Calcium Urine WBC (Auto) Crossmatch 02/06/20 02/07/20 02/07/20 18:26 00:08 05:41 WBC RBC Hgb Hct MCHC RDW Plt Count MCH Lymph % (Auto) Lymph # Lymph # (Auto) Seg Neutrophils % Seg Neuts % (Manual) Lymphocytes % (Manual) Seg Neutrophils # Seg Neutrophils # Man Nucleated RBC % Lymphocytes # (Manual) Monocytes # (Manual) PT INR Heparin Anti-Xa Level POC ABG pO2 ABG pH POC ABG pCO2 ABG Hemoglobin ABG Oxyhemoglobin ABG pO2 ABG HCO3 ABG O2 Saturation ABG Base Excess ABG Potassium ABG Chloride ABG Glucose Oxyhemoglobin Sodium Potassium Chloride Carbon Dioxide BUN Creatinine Glucose POC Glucose 114 H 111 H 164 H Lactic Acid Calcium AST Phosphorus Total Protein Albumin C-Reactive Protein Arterial Blood Glucose Arterial Blood Ionized Calcium Urine WBC (Auto) Crossmatch 02/07/20 02/07/20 02/07/20 11:49 17:56 23:27 WBC RBC Hgb Hct MCHC RDW Plt Count MCH Lymph % (Auto) Lymph # Lymph # (Auto) Seg Neutrophils % Seg Neuts % (Manual) Lymphocytes % (Manual) Seg Neutrophils # Seg Neutrophils # Man Nucleated RBC % Lymphocytes # (Manual) Monocytes # (Manual) PT INR Heparin Anti-Xa Level POC ABG pO2 ABG pH POC ABG pCO2 ABG Hemoglobin ABG Oxyhemoglobin ABG pO2 ABG HCO3 ABG O2 Saturation ABG Base Excess ABG Potassium ABG Chloride ABG Glucose Oxyhemoglobin Sodium Potassium Chloride Carbon Dioxide BUN Creatinine Glucose POC Glucose 146 H 140 H 164 H Lactic Acid Calcium AST Phosphorus Total Protein Albumin C-Reactive Protein Arterial Blood Glucose Arterial Blood Ionized Calcium Urine WBC (Auto) Crossmatch 02/08/20 02/08/20 02/08/20 03:55 04:46 04:46 WBC RBC 2.30 L Hgb 7.3 L Hct 22.0 L MCHC RDW 23.9 H Plt Count MCH Lymph % (Auto) 8.5 L Lymph # Lymph # (Auto) 0.8 L Seg Neutrophils % 87.6 H Seg Neuts % (Manual) Lymphocytes % (Manual) Seg Neutrophils # 8.7 H Seg Neutrophils # Man Nucleated RBC % Lymphocytes # (Manual) Monocytes # (Manual) PT INR Heparin Anti-Xa Level POC ABG pO2 112.8 H ABG pH 7.511 H POC ABG pCO2 51.2 H ABG Hemoglobin 7.8 L ABG Oxyhemoglobin ABG pO2 ABG HCO3 ABG O2 Saturation ABG Base Excess ABG Potassium ABG Chloride ABG Glucose Oxyhemoglobin Sodium Potassium 3.1 L Chloride Carbon Dioxide 31 H BUN 29 H Creatinine 0.3 L Glucose 108 H POC Glucose Lactic Acid Calcium AST Phosphorus Total Protein Albumin C-Reactive Protein Arterial Blood Glucose Arterial Blood Ionized Calcium Urine WBC (Auto) Crossmatch 02/08/20 02/08/20 02/08/20 05:31 10:15 12:10 WBC RBC Hgb Hct MCHC RDW Plt Count MCH Lymph % (Auto) Lymph # Lymph # (Auto) Seg Neutrophils % Seg Neuts % (Manual) Lymphocytes % (Manual) Seg Neutrophils # Seg Neutrophils # Man Nucleated RBC % Lymphocytes # (Manual) Monocytes # (Manual) PT INR Heparin Anti-Xa Level POC ABG pO2 ABG pH POC ABG pCO2 ABG Hemoglobin ABG Oxyhemoglobin ABG pO2 ABG HCO3 ABG O2 Saturation ABG Base Excess ABG Potassium ABG Chloride ABG Glucose Oxyhemoglobin Sodium Potassium Chloride Carbon Dioxide BUN Creatinine Glucose POC Glucose 117 H 164 H 170 H Lactic Acid Calcium AST Phosphorus Total Protein Albumin C-Reactive Protein Arterial Blood Glucose Arterial Blood Ionized Calcium Urine WBC (Auto) Crossmatch 02/08/20 02/08/20 02/09/20 12:23 23:50 03:04 WBC RBC Hgb Hct MCHC RDW Plt Count MCH Lymph % (Auto) Lymph # Lymph # (Auto) Seg Neutrophils % Seg Neuts % (Manual) Lymphocytes % (Manual) Seg Neutrophils # Seg Neutrophils # Man Nucleated RBC % Lymphocytes # (Manual) Monocytes # (Manual) PT INR Heparin Anti-Xa Level POC ABG pO2 ABG pH 7.501 H POC ABG pCO2 ABG Hemoglobin 7.5 L ABG Oxyhemoglobin ABG pO2 ABG HCO3 ABG O2 Saturation ABG Base Excess ABG Potassium ABG Chloride ABG Glucose 143 H Oxyhemoglobin Sodium Potassium Chloride Carbon Dioxide BUN Creatinine Glucose POC Glucose 164 H 126 H Lactic Acid Calcium AST Phosphorus Total Protein Albumin C-Reactive Protein Arterial Blood Glucose 143 H Arterial Blood Ionized Calcium Urine WBC (Auto) Crossmatch 02/09/20 02/09/20 02/09/20 05:57 08:00 12:39 WBC RBC Hgb Hct MCHC RDW Plt Count MCH Lymph % (Auto) Lymph # Lymph # (Auto) Seg Neutrophils % Seg Neuts % (Manual) Lymphocytes % (Manual) Seg Neutrophils # Seg Neutrophils # Man Nucleated RBC % Lymphocytes # (Manual) Monocytes # (Manual) PT INR Heparin Anti-Xa Level POC ABG pO2 ABG pH POC ABG pCO2 ABG Hemoglobin ABG Oxyhemoglobin ABG pO2 ABG HCO3 ABG O2 Saturation ABG Base Excess ABG Potassium ABG Chloride ABG Glucose Oxyhemoglobin Sodium Potassium 3.3 L Chloride Carbon Dioxide 34 H BUN 27 H Creatinine 0.4 L Glucose 127 H POC Glucose 160 H 154 H Lactic Acid Calcium 8.2 L AST Phosphorus Total Protein Albumin C-Reactive Protein Arterial Blood Glucose Arterial Blood Ionized Calcium Urine WBC (Auto) Crossmatch 02/09/20 02/09/20 02/09/20 18:17 23:43 Unknown WBC RBC 2.15 L Hgb 7.0 L Hct 20.8 L MCHC RDW 23.3 H Plt Count MCH 33 H Lymph % (Auto) Lymph # Lymph # (Auto) Seg Neutrophils % Seg Neuts % (Manual) Lymphocytes % (Manual) Seg Neutrophils # Seg Neutrophils # Man Nucleated RBC % Lymphocytes # (Manual) Monocytes # (Manual) PT INR Heparin Anti-Xa Level POC ABG pO2 ABG pH POC ABG pCO2 ABG Hemoglobin ABG Oxyhemoglobin ABG pO2 ABG HCO3 ABG O2 Saturation ABG Base Excess ABG Potassium ABG Chloride ABG Glucose Oxyhemoglobin Sodium Potassium Chloride Carbon Dioxide BUN Creatinine Glucose POC Glucose 152 H 177 H Lactic Acid Calcium AST Phosphorus Total Protein Albumin C-Reactive Protein Arterial Blood Glucose Arterial Blood Ionized Calcium Urine WBC (Auto) Crossmatch 02/10/20 02/10/20 02/10/20 04:38 05:24 11:44 WBC RBC Hgb Hct MCHC RDW Plt Count MCH Lymph % (Auto) Lymph # Lymph # (Auto) Seg Neutrophils % Seg Neuts % (Manual) Lymphocytes % (Manual) Seg Neutrophils # Seg Neutrophils # Man Nucleated RBC % Lymphocytes # (Manual) Monocytes # (Manual) PT INR Heparin Anti-Xa Level POC ABG pO2 ABG pH 7.502 H POC ABG pCO2 ABG Hemoglobin 6.2 L ABG Oxyhemoglobin ABG pO2 136.0 H ABG HCO3 29.3 H ABG O2 Saturation ABG Base Excess 5.7 H ABG Potassium ABG Chloride ABG Glucose Oxyhemoglobin Sodium Potassium Chloride Carbon Dioxide BUN Creatinine Glucose POC Glucose 113 H 176 H Lactic Acid Calcium AST Phosphorus Total Protein Albumin C-Reactive Protein Arterial Blood Glucose Arterial Blood Ionized Calcium Urine WBC (Auto) Crossmatch 02/10/20 02/11/20 02/11/20 23:42 03:43 04:12 WBC RBC 2.12 L Hgb 6.9 L Hct 20.6 L MCHC RDW 23.4 H Plt Count MCH 33 H Lymph % (Auto) Lymph # Lymph # (Auto) Seg Neutrophils % 84.7 H Seg Neuts % (Manual) 83.0 H Lymphocytes % (Manual) 11.0 L Seg Neutrophils # Seg Neutrophils # Man Nucleated RBC % Lymphocytes # (Manual) 1.0 L Monocytes # (Manual) PT INR Heparin Anti-Xa Level POC ABG pO2 112.6 H ABG pH 7.480 H POC ABG pCO2 ABG Hemoglobin 7.2 L ABG Oxyhemoglobin ABG pO2 ABG HCO3 ABG O2 Saturation ABG Base Excess ABG Potassium ABG Chloride ABG Glucose 154 H Oxyhemoglobin Sodium Potassium Chloride Carbon Dioxide BUN Creatinine Glucose POC Glucose 149 H Lactic Acid Calcium AST Phosphorus Total Protein Albumin C-Reactive Protein Arterial Blood Glucose 154 H Arterial Blood Ionized Calcium Urine WBC (Auto) Crossmatch 02/11/20 02/11/20 02/11/20 04:12 05:50 08:22 WBC RBC Hgb Hct MCHC RDW Plt Count MCH Lymph % (Auto) Lymph # Lymph # (Auto) Seg Neutrophils % Seg Neuts % (Manual) Lymphocytes % (Manual) Seg Neutrophils # Seg Neutrophils # Man Nucleated RBC % Lymphocytes # (Manual) Monocytes # (Manual) PT INR Heparin Anti-Xa Level POC ABG pO2 ABG pH POC ABG pCO2 ABG Hemoglobin ABG Oxyhemoglobin ABG pO2 ABG HCO3 ABG O2 Saturation ABG Base Excess ABG Potassium ABG Chloride ABG Glucose Oxyhemoglobin Sodium 146 H Potassium Chloride Carbon Dioxide BUN 24 H Creatinine 0.4 L Glucose 168 H POC Glucose 190 H Lactic Acid Calcium 8.0 L AST Phosphorus Total Protein Albumin C-Reactive Protein Arterial Blood Glucose Arterial Blood Ionized Calcium Urine WBC (Auto) Crossmatch See Detail 02/11/20 02/11/20 02/11/20 11:41 17:33 23:40 WBC RBC Hgb Hct MCHC RDW Plt Count MCH Lymph % (Auto) Lymph # Lymph # (Auto) Seg Neutrophils % Seg Neuts % (Manual) Lymphocytes % (Manual) Seg Neutrophils # Seg Neutrophils # Man Nucleated RBC % Lymphocytes # (Manual) Monocytes # (Manual) PT INR Heparin Anti-Xa Level POC ABG pO2 ABG pH POC ABG pCO2 ABG Hemoglobin ABG Oxyhemoglobin ABG pO2 ABG HCO3 ABG O2 Saturation ABG Base Excess ABG Potassium ABG Chloride ABG Glucose Oxyhemoglobin Sodium Potassium Chloride Carbon Dioxide BUN Creatinine Glucose POC Glucose 260 H 132 H 54 L Lactic Acid Calcium AST Phosphorus Total Protein Albumin C-Reactive Protein Arterial Blood Glucose Arterial Blood Ionized Calcium Urine WBC (Auto) Crossmatch 02/12/20 02/12/20 05:16 06:45 WBC RBC Hgb 8.6 L Hct 25.2 L MCHC RDW Plt Count MCH Lymph % (Auto) Lymph # Lymph # (Auto) Seg Neutrophils % Seg Neuts % (Manual) Lymphocytes % (Manual) Seg Neutrophils # Seg Neutrophils # Man Nucleated RBC % Lymphocytes # (Manual) Monocytes # (Manual) PT INR Heparin Anti-Xa Level POC ABG pO2 ABG pH POC ABG pCO2 ABG Hemoglobin ABG Oxyhemoglobin ABG pO2 ABG HCO3 ABG O2 Saturation ABG Base Excess ABG Potassium ABG Chloride ABG Glucose Oxyhemoglobin Sodium Potassium Chloride Carbon Dioxide BUN Creatinine Glucose POC Glucose 127 H Lactic Acid Calcium AST Phosphorus Total Protein Albumin C-Reactive Protein Arterial Blood Glucose Arterial Blood Ionized Calcium Urine WBC (Auto) Crossmatch Chest x-ray: other (none fro my review today) Allied health notes reviewed: nursing
--- NOTE | 2020-02-12 12:15 | Progress Note ---
Assessment and Plan Cultures: Blood cultures 01/08/2020 MDR Proteus mirabilis. Blood culture 01/12/2020 no growth. Urine culture 01/08/2020 no growth. Tissue culture 01/16/2020 MDR Proteus and Enterococcus BAL culture 01/28/2020: normal resp shoshana tracheal aspirate 02/05/2020: normal resp shoshana A/P: 69 years old female with history of diabetes mellitus, pulmonary embolism, dementia, admitted on 01/08/2020 due to altered mental status, lethargy and hypotension. Patient was evaluated by her home health nurse who found her less active and hypotensive: #Septic shock: off pressors. #s/p PEA arrest night of 01/28/2020 and on 02/05/2020 #Proteus bacteremia: Likely from sacral decubitus. Continues on Zosyn. #Unstageable sacral decubitus, infected: Status post or debridement on 01/16/2020, tissue cultures growing MDR Proteus and enterococcus. OR findings extensive fascial necrosis. Dr. Roberts had discussed with Dr Vo likely osteomyelitis. End date for Zosyn is 6 weeks till 02/27/2020. Prognosis however is poor. #UTI #Acute hypoxemic respiratory failure: remains on the vent. Recs:- -continue Zosyn 4.5 g IV every 8 hours, end date is 02/27/2020 -Offloading, wound care and wound VAC per surgery -Prognosis guarded, planned for Trach/PEG on Sunday ID will sign off. Please call with questions. Braxton Danielle MD FACP Infectious Disease Sales Development Associate ([facility]) Subjective Date of service: 02/12/20 Principal diagnosis: Septic Shock; S/P Cardiac Arrest; Ac. hypoxemic resp failure; UTI Interval history: Remains on the vent. No fever. Sedated Objective - Exam Narrative Exam: Physical Exam: Constitutional: sedated, intubated, on the vent Head, Ears, Nose: Normocephalic, atraumatic. External ears, nose normal Eyes: Conjunctivae/corneas clear. No icterus. No ptosis. Neck: intubated Oral: intubated Cardiovascular: S1, S2 normal. Respiratory: AE fair b/l GI: Soft, non-tender, bowel sounds + Musculoskeletal: contractures +, edematous extremities Skin: sacral wound with wound VAC Hem/Lymphatic: No palpable cervical or supraclavicular nodes. No lymphangitis Psych: no agitation Neurological: sedated, intubated, on the vent - Constitutional Vitals: Vital Signs Temp Pulse Resp BP Pulse Ox 97.3 F L 101 H 21 123/60 100 02/12/20 11:59 02/12/20 11:59 02/12/20 11:59 02/12/20 11:45 02/12/20 11:59 Temperature -Last 24 Hours Temperature 97.3 F Temperature 97.2 F Temperature 98.3 F Temperature 99.3 F Temperature 99.1 F Temperature 97.5 F Temperature 37.4 F Temperature 37.5 F - Labs CBC & Chem 7: 02/12/20 06:45 02/11/20 04:12 Labs: Abnormal lab results 02/11/20 02/11/20 02/11/20 Range/Units 08:22 17:33 23:40 Hgb (10.1-14.3) gm/dl Hct (30.3-42.9) % POC Glucose 132 H 54 L (70-105) Crossmatch See Detail 02/12/20 02/12/20 02/12/20 Range/Units 05:16 06:45 11:48 Hgb 8.6 L (10.1-14.3) gm/dl Hct 25.2 L (30.3-42.9) % POC Glucose 127 H 163 H (70-105) Crossmatch
[2020-02-12] MEDS: DONEPEZIL 10 MG TAB PO SCH (21:04)
[2020-02-12] MEDS: MIRTAZAPINE 15 MG TAB PO SCH (21:04)
[2020-02-12] MEDS: traZODone 50 MG TAB PO SCH (21:04)
[2020-02-13] MEDS: INSULIN REGULAR, HUMAN 100 UNIT/ML 3ML VIAL SUB-Q SCH ×4 (00:30→18:05)
[2020-02-13 05:04] LABS: ABG Base Excess 3.7 mmol/L (-2.0-3.0); ABG HCO3 27.7 mmol/L (20.0-26.0); ABG Methemoglobin 0.6 % (0.0-1.5); ABG Oxygen Saturation 97.7 % (95.0-99.0); ABG PCO2 39.6 mm Hg; ABG PH 7.463 pH Units (7.350-7.450); ABG PO2 98.4 mm Hg (80.0-90.0)
[2020-02-13] MEDS: PIPERACIL/TAZOBACTA 4.5/NS 100 4.5 GM/100 ML VIAL IV SCH ×3 (05:16→22:27)
[2020-02-13 05:30] LABS: Basophils % (Auto) 0.4 % (0.0-1.8); Eosinophils # (Auto) 0.1 K/mm3 (0.0-0.4); Eosinophils % (Auto) 0.9 % (0.0-4.3); Hematocrit 25.6 % (30.3-42.9); Hemoglobin 8.7 gm/dl (10.1-14.3); Mean Corpuscular HGB Conc 34 % (30-34); Mean Corpuscular Volume 94 fl (79-97); Monocytes # (Auto) 0.3 K/mm3 (0.0-0.8); Monocytes % (Auto) 4.2 % (0.0-7.3); Platelet Count 365 K/mm3 (140-440); Red Blood Count 2.73 M/mm3 (3.65-5.03)
[2020-02-13 05:40] LABS: Red Cell Distribution Width 21.3 % (13.2-15.2)
[2020-02-13 05:48] LABS: Alanine Aminotransferase 38 units/L (7-56); Blood Urea Nitrogen 24 mg/dL (7-17); Hemolysis Index 4
[2020-02-13 05:49] LABS: BUN/Creatinine Ratio 80
--- NOTE | 2020-02-13 06:09 | XRay Report ---
CHEST 1 VIEW INDICATION: VENT COMPARISON: 02/05/2020 FINDINGS: Support devices: Endotracheal tube remains in position. Left PICC line has been removed. Heart: Normal and unchanged Lungs/Pleura: Bilateral pleural effusions appear to have decreased, and bibasilar disease, probably a telectasis, is also improved. IMPRESSION: 1. Slight improvement. Signer Name: Enrrique Dumont MD Signed: 02/13/2020 6:04 AM Workstation Name: [id number]
[2020-02-13] MEDS ORDERED: POTASSIUM CHLORIDE 20 MEQ 20 MEQ/100 ML BAG IV ONE (08:04)
--- NOTE | 2020-02-13 08:11 | Progress Note ---
Assessment and Plan Assessment and plan: --Acute hypoxic respiratory failure; intubated. vent dependent status post cardiac arrest status post extubation 02/02/2020 but had to be reintubated on 02/04 Surgery evaluated, scheduled for tracheostomy today 02/13/2020 N.p.o. status --Anemia ; unknown etiology , no external evidence of bleeding Received 1 unit PRBC transfusion , hemoglobin improved from 6.9-8.6-8.7 Closely monitor H&H and transfuse additional PRBC as needed --Shock/ septic shock Monitor off Levophed, supportive care Etiology secondary to infected sacral decubitus ulcer and UTI --Sepsis /Proteus bacteremia: Due to sacral decubitus Long-term Zosyn per ID stop date 02/27/2020[total 6 weeks] --Hypokalemia; resolved Monitor levels and replenish as needed -- Hypernatremia;Free water flushes Monitor levels, adjust management as needed -- Uncontrolled diabetes mellitus; Blood sugars well controlled Accu-Chek sliding scale coverage long-acting insulin as needed DM management with SSI, TF --s/p PEA arrest night of 01/28/2020 and 02/05/2020 s/p CPR per ACLS protocol --Anoxic/hypoxic brain injury[status post PEA cardiac arrest] -- Hydropneumothorax, not POA Patient developed hydropneumothorax on 01/15. Surgery evaluated s/p chest tube placed on 01/15. Improved, s/p chest tube removed 01/22, extubated 02/02/2020 Patient is using nasal cannula oxygen/BiPAP and Ventimask as needed -- large Left pleural effusion 01/25 01/27; s/p bronchoscopy and Therapeutic suctioning of the lungs done by accounting analyst --Unstageable sacral decubitus ulcer, infected/POA s/p wound debridement on 01/15. Wound vac in place ID recommend zosyn 4.5 g IV q8h total 6 weeks stop date 02/27/2020 -- UTI (urinary tract infection)Completed antibiotics --h/o Bilateral pulmonary embolism 7 months ago CTA chest and LE doppler showed no acute PE or DVT eliquis stopped -- Dementia: Continue donepezil --Severe protein-calorie malnutrition PEG placed 01/13. PEG feeds per protocol --DVT prophylaxis; SCDs Closely monitor the patient and adjust management as needed Plan of care reviewed with the patient and her nurse The high probability of a clinically significant, sudden or life threatening deterioration of the [Respiratory, CLINIC OFFICE MANAGER, CVs] system(s) required my full and direct attention, intervention and personal management. The aggregate critical care time was [32] minutes. This time is in addition to time spent performing reported procedures but includes the following: [x] Data Review and interpretation [x] Patient assessment and monitoring of vital signs [x] Documentation [x] Medication orders and management . Patient currently with PSV/CPAP FiO2 50%, PEEP of 6 and pressure support of 10. Continue PSV trials as tolerated and wean per pulmonary. Recall ID consultation. 02/08/2020. Patient with Proteus bacteremia likely from sacral decubitus. Continue Zosyn 4.5 g IV every 8 hours until stop date of 02/26. Patient still on mechanical ventilation AC mode rate 12, tidal volume 350, FiO2 30% and PEEP of 6. Poor prognosis. Consider hospice. Continue scopolamine for secretion control. Continue pressors to maintain MAP > 65; currently off. 02/09/2020. Continue Zosyn 4.5 g IV every 8 hours for Proteus bacteremia with end date of 02/27/2020. Continue wound care/wound VAC per surgery. Patient still on mechanical ventilation AC mode rate 12, tidal volume 350, FiO2 30% and PEEP of 6. Poor prognosis. Consider hospice. Continue scopolamine for secretion control. Currently off pressors. 02/09; evaluated by surgery, planning tracheostomy pending COVID test 02/10; possible tracheostomy today pending COVID test, surgery following 02/11; patient n.p.o. from midnight, possible tracheostomy tomorrow Received 1 unit of PRBC, Hb improved to 8.6 02/12; scheduled for tracheostomy today History Interval history: Patient is scheduled for tracheostomy today Patient is n.p.o. status Intubated on ventilatory support Vital signs noted Hospitalist Physical - Constitutional Vitals: Temp Pulse Resp BP Pulse Ox 97.9 F 111 H 21 115/61 100 02/13/20 03:26 02/13/20 07:54 02/13/20 07:54 02/13/20 07:54 02/13/20 07:54 General appearance: Present: no acute distress, well-nourished, other (Intubated on vent) - EENT Eyes: Present: PERRL, EOM intact - Neck Neck: Present: supple, normal ROM - Respiratory Respiratory effort: normal Respiratory: bilateral: diminished, rhonchi, negative: rales, wheezing - Cardiovascular Rhythm: regular Heart Sounds: Present: S1 & S2 - Extremities Extremities: no ischemia, No edema - Abdominal General gastrointestinal: soft, non-tender, non-distended, normal bowel sounds - Integumentary Integumentary: Present: clear, warm - Psychiatric Psychiatric: other (Intubated on vent) - Neurologic Neurologic: other (Intubated on vent) Results - Labs CBC & Chem 7: 02/13/20 04:45 02/13/20 04:45 Labs: Laboratory Last Values WBC 8.2 K/mm3 (4.5-11.0) 02/13/20 04:45 RBC 2.73 M/mm3 (3.65-5.03) L 02/13/20 04:45 Hgb 8.7 gm/dl (10.1-14.3) L 02/13/20 04:45 Hct 25.6 % (30.3-42.9) L 02/13/20 04:45 MCV 94 fl (79-97) 02/13/20 04:45 MCH 32 pg (28-32) 02/13/20 04:45 MCHC 34 % (30-34) 02/13/20 04:45 RDW 21.3 % (13.2-15.2) H 02/13/20 04:45 Plt Count 365 K/mm3 (140-440) 02/13/20 04:45 Lymph % (Auto) 12.0 % (13.4-35.0) L 02/13/20 04:45 [place] % (Auto) 4.2 % (0.0-7.3) 02/13/20 04:45 Eos % (Auto) 0.9 % (0.0-4.3) 02/13/20 04:45 Baso % (Auto) 0.4 % (0.0-1.8) 02/13/20 04:45 Lymph # (Auto) 1.0 K/mm3 (1.2-5.4) L 02/13/20 04:45 [place] # (Auto) 0.3 K/mm3 (0.0-0.8) 02/13/20 04:45 Eos # (Auto) 0.1 K/mm3 (0.0-0.4) 02/13/20 04:45 Baso # (Auto) 0.0 K/mm3 (0.0-0.1) 02/13/20 04:45 Add Manual Diff Complete 02/11/20 04:12 Total Counted 100 02/11/20 04:12 Seg Neutrophils % 82.5 % (40.0-70.0) H 02/13/20 04:45 Seg Neuts % (Manual) 83.0 % (40.0-70.0) H 02/11/20 04:12 Band Neutrophils % 0 % 02/11/20 04:12 Lymphocytes % (Manual) 11.0 % (13.4-35.0) L 02/11/20 04:12 Reactive Lymphs % (Man) 0 % 02/11/20 04:12 Monocytes % (Manual) 5.0 % (0.0-7.3) 02/11/20 04:12 Eosinophils % (Manual) 1.0 % (0.0-4.3) 02/11/20 04:12 Basophils % (Manual) 0 % (0.0-1.8) 02/11/20 04:12 Metamyelocytes % 0 % 02/11/20 04:12 Myelocytes % 0 % 02/11/20 04:12 Promyelocytes % 0 % 02/11/20 04:12 Blast Cells % 0 % 02/11/20 04:12 Nucleated RBC % Not Reportable 02/11/20 04:12 Seg Neutrophils # 6.8 K/mm3 (1.8-7.7) 02/13/20 04:45 Seg Neutrophils # Man 7.6 K/mm3 (1.8-7.7) 02/11/20 04:12 Band Neutrophils # 0.0 K/mm3 02/11/20 04:12 Lymphocytes # (Manual) 1.0 K/mm3 (1.2-5.4) L 02/11/20 04:12 Abs React Lymphs (Man) 0.0 K/mm3 02/11/20 04:12 Monocytes # (Manual) 0.5 K/mm3 (0.0-0.8) 02/11/20 04:12 Eosinophils # (Manual) 0.1 K/mm3 (0.0-0.4) 02/11/20 04:12 Basophils # (Manual) 0.0 K/mm3 (0.0-0.1) 02/11/20 04:12 Metamyelocytes # 0.0 K/mm3 02/11/20 04:12 Myelocytes # 0.0 K/mm3 02/11/20 04:12 Promyelocytes # 0.0 K/mm3 02/11/20 04:12 Blast Cells # 0.0 K/mm3 02/11/20 04:12 WBC Morphology Not Reportable 02/11/20 04:12 Hypersegmented Neuts Not Reportable 02/11/20 04:12 Hyposegmented Neuts Not Reportable 02/11/20 04:12 Hypogranular Neuts Not Reportable 02/11/20 04:12 Smudge Cells Not Reportable 02/11/20 04:12 Toxic Granulation Not Reportable 02/11/20 04:12 Toxic Vacuolation Not Reportable 02/11/20 04:12 Dohle Bodies Not Reportable 02/11/20 04:12 Pelger-Huet Anomaly Not Reportable 02/11/20 04:12 Lata Rods Not Reportable 02/11/20 04:12 Platelet Estimate Consistent w auto 02/11/20 04:12 Clumped Platelets Not Reportable 02/11/20 04:12 Plt Clumps, EDTA Not Reportable 02/11/20 04:12 Large Platelets Not Reportable 02/11/20 04:12 Giant Platelets Not Reportable 02/11/20 04:12 Platelet Satelliting Not Reportable 02/11/20 04:12 Plt Morphology Comment Not Reportable 02/11/20 04:12 RBC Morphology Not Reportable 02/11/20 04:12 Dimorphic RBCs Not Reportable 02/11/20 04:12 Polychromasia Not Reportable 02/11/20 04:12 Hypochromasia Not Reportable 02/11/20 04:12 Poikilocytosis Not Reportable 02/11/20 04:12 Anisocytosis 2+ 02/11/20 04:12 Microcytosis Not Reportable 02/11/20 04:12 Macrocytosis Few 02/11/20 04:12 Spherocytes Not Reportable 02/11/20 04:12 Pappenheimer Bodies Not Reportable 02/11/20 04:12 Sickle Cells Not Reportable 02/11/20 04:12 Target Cells Few 02/11/20 04:12 Tear Drop Cells Not Reportable 02/11/20 04:12 Ovalocytes Not Reportable 02/11/20 04:12 Helmet Cells Not Reportable 02/11/20 04:12 Lombardi-Montreat Bodies Not Reportable 02/11/20 04:12 Gay Rings Not Reportable 02/11/20 04:12 [place]o Cells Not Reportable 02/11/20 04:12 Bite Cells Not Reportable 02/11/20 04:12 Crenated Cell Not Reportable 02/11/20 04:12 Elliptocytes Not Reportable 02/11/20 04:12 Acanthocytes (Spur) Not Reportable 02/11/20 04:12 Rouleaux Not Reportable 02/11/20 04:12 Hemoglobin C Crystals Not Reportable 02/11/20 04:12 Schistocytes Not Reportable 02/11/20 04:12 Malaria parasites Not Reportable 02/11/20 04:12 Gideon Bodies Not Reportable 02/11/20 04:12 Hem Pathologist Commnt No 02/11/20 04:12 APTT 33.9 Sec. (24.2-36.6) 01/26/20 16:30 PT 14.4 Sec. (12.2-14.9) 02/02/20 05:25 INR 1.11 (0.87-1.13) 02/02/20 05:25 Heparin Anti-Xa Level 0.74 U.I./ml (0.3-0.7) H 01/28/20 08:50 ABG pH 7.463 pH Units (7.350-7.450) H 02/13/20 04:30 POC ABG pCO2 38.5 mmHg (32.0-48.0) 02/11/20 03:43 ABG pCO2 39.6 mm Hg 02/13/20 04:30 POC ABG pO2 112.6 mmHg (83-108) H 02/11/20 03:43 ABG pO2 98.4 mm Hg (80.0-90.0) H 02/13/20 04:30 POC ABG HCO3 28 02/11/20 03:43 ABG HCO3 27.7 mmol/L (20.0-26.0) H 02/13/20 04:30 ABG O2 Saturation 97.7 % (95.0-99.0) 02/13/20 04:30 ABG O2 Content 19.3 (0.0-44) 02/13/20 04:30 POC ABG Base Excess 4.2 02/11/20 03:43 ABG Base Excess 3.7 mmol/L (-2.0-3.0) H 02/13/20 04:30 ABG Hemoglobin 14.4 gm/dl (12.0-16.0) 02/13/20 04:30 ABG Oxyhemoglobin 96.7 (94-98) 02/09/20 03:04 ABG Carboxyhemoglobin 1.8 % (0.0-5.0) 02/13/20 04:30 ABG Methemoglobin 0.6 % (0.0-1.5) 02/13/20 04:30 ABG Sodium 138.5 mmol/L (136.0-145.0) 02/11/20 03:43 ABG Potassium 3.4 mmol/L (3.40-4.50) 02/11/20 03:43 ABG Chloride 107.0 mmol/L (98-107) 02/11/20 03:43 ABG Glucose 154 mg/dL (65-95) H 02/11/20 03:43 Oxyhemoglobin 95.3 % (95.0-99.0) 02/13/20 04:30 Carboxyhemoglobin 0.9 (0.5-1.5) 02/08/20 03:55 FiO2 25 % 02/13/20 04:30 Sodium 144 mmol/L (137-145) 02/13/20 04:45 Potassium 3.4 mmol/L (3.6-5.0) L 02/13/20 04:45 Chloride 106.2 mmol/L (98-107) 02/13/20 04:45 Carbon Dioxide 31 mmol/L (22-30) H 02/13/20 04:45 Anion Gap 10 mmol/L 02/13/20 04:45 BUN 24 mg/dL (7-17) H 02/13/20 04:45 Creatinine 0.3 mg/dL (0.6-1.2) L 02/13/20 04:45 Estimated GFR > 60 ml/min 02/13/20 04:45 BUN/Creatinine Ratio 80 % 02/13/20 04:45 Glucose 122 mg/dL (65-100) H 02/13/20 04:45 POC Glucose 127 (70-105) H 02/13/20 05:19 Hemoglobin A1c 5.3 % (4-6) 01/11/20 00:45 Lactic Acid 1.30 mmol/L (0.7-2.0) 01/26/20 23:27 Calcium 8.0 mg/dL (8.4-10.2) L 02/13/20 04:45 Phosphorus 2.30 mg/dL (2.5-4.5) L 02/03/20 05:14 Magnesium 2.20 mg/dL (1.7-2.3) 02/06/20 05:11 Total Bilirubin 0.20 mg/dL (0.1-1.2) 02/13/20 04:45 AST 29 units/L (5-40) 02/13/20 04:45 ALT 38 units/L (7-56) 02/13/20 04:45 Alkaline Phosphatase 109 units/L (35-129) 02/13/20 04:45 C-Reactive Protein 14.80 mg/dL (0.00-1.30) H 01/29/20 Unknown Total Protein 4.2 g/dL (6.3-8.2) L 02/13/20 04:45 Albumin 2.0 g/dL (3.9-5) L 02/13/20 04:45 Albumin/Globulin Ratio 0.9 % 02/13/20 04:45 TSH 2.440 mlU/mL (0.270-4.200) 01/10/20 10:10 Procalcitonin 1.86 ng/mL (<0.15) 01/29/20 Unknown Arterial Blood Glucose 154 mg/dL (65-95) H 02/11/20 03:43 Arterial Blood Ionized Calcium 4.6 mg/dL (4.6-5.3) 02/11/20 03:43 Urine Color [place] (Yellow) 01/08/20 Unknown Urine Turbidity Cloudy (Clear) 01/08/20 Unknown Urine pH 5.0 (5.0-7.0) 01/08/20 Unknown Ur Specific [place] 1.018 (1.003-1.030) 01/08/20 Unknown Urine Protein 30 mg/dl mg/dL (Negative) 01/08/20 Unknown Urine Glucose (UA) Neg mg/dL (Negative) 01/08/20 Unknown Urine Ketones Neg mg/dL (Negative) 01/08/20 Unknown Urine Blood Mod (Negative) 01/08/20 Unknown Urine Nitrite Neg (Negative) 01/08/20 Unknown Urine Bilirubin Neg (Negative) 01/08/20 Unknown Urine Urobilinogen < 2.0 mg/dL (<2.0) 01/08/20 Unknown Ur Leukocyte Esterase Sm (Negative) 01/08/20 Unknown Urine WBC (Auto) 11.0 /HPF (0.0-6.0) H 01/08/20 Unknown Urine RBC (Auto) 7.0 /HPF (0.0-6.0) 01/08/20 Unknown U Epithel Cells (Auto) < 1.0 /HPF (0-13.0) 01/08/20 Unknown Urine Bacteria (Auto) 1+ /HPF (Negative) 01/08/20 Unknown Urine Mucus 2+ /HPF 01/08/20 Unknown Urine Yeast (Budding) 1+ /HPF 01/08/20 Unknown Vancomycin Trough 7.9 ug/mL (5.0-20.0) 01/17/20 16:04 Coronavirus (PCR) Negative (Negative) 02/10/20 10:06 Blood Type A POSITIVE 02/11/20 08:22 Antibody Screen Negative 02/11/20 08:22 Crossmatch See Detail 02/11/20 08:22 Mejía/IV: Voiding Method Indwelling Catheter IV Catheter Type [Left Upper PICC Line arm] IV Catheter Type [Right Upper Mid-line arm] IV Catheter Type [Right Peripheral IV Forearm] Active Medications - Current Medications Current Medications: Generic Name Dose Route Start Last Admin Trade Name Freq PRN Reason Stop Dose Admin Acetaminophen 650 mg 01/08/20 23:14 01/18/20 06:03 Tylenol PO 650 mg Q4H PRN Administration Pain MILD(1-3)/Fever >100.5/GARCIA Lipase/Protease/Amylase 1 each 01/17/20 08:[address] 10,500 Unit FEEDTUBE PRN PRN For Clogged Feeding Tube Atorvastatin Calcium 10 mg 01/09/20 22:00 02/12/20 21:05 Atorvastatin PO 10 mg QHS BRO Administration Dextrose 0 ml 01/08/20 23:14 02/10/20 17:18 D50w (25gm) Syringe IV 10 ml Q30MIN PRN Administration Hypoglycemia Protocol Donepezil HCl 10 mg 01/09/20 22:00 02/12/20 21:04 Aricept PO 10 mg QHS BRO Administration Famotidine 20 mg 01/27/20 10:00 02/12/20 21:04 Pepcid PO 20 mg BID BRO Administration Ferrous Sulfate 308 mg 02/09/20 12:00 02/12/20 10:08 Ferrous Sulfate FEEDTUBE 308 mg DAILY BRO Administration Fluticasone Propionate 100 mcg 01/25/20 20:00 01/26/20 06:09 Flonase NS 100 mcg QDAY PRN Administration Nasal Congestion Heparin Sodium (Porcine) 5,000 unit 01/28/20 10:00 02/12/20 21:05 Heparin SUB-Q 5,000 unit Q12HR BRO Administration Hydrophilic Ointment 1 applic 01/28/20 10:57 Vaseline Lip Therapy TP Q2HR PRN Dry Lips Piperacillin Sod/Tazobactam Sod 4.5 gm in 100 mls @ 200 mls/hr 01/19/20 14:00 02/13/20 05:16 Zosyn/Ns 4.5gm/100ml IV 02/27/20 22:29 200 mls/hr Q8HR BRO Administration Protocol Norepinephrine 4 mg in 250 mls @ 7.5 mls/hr 02/05/20 01:00 02/06/20 15:32 Levophed Drip 4 Mg/Ns 250 Ml IV Infused TITR BRO Titration Protocol 2 MCG/MIN Potassium Chloride 20 meq in 100 mls @ 100 mls/hr 02/13/20 08:04 Kcl 20meq/100ml IV 02/13/20 09:03 ONCE ONE Insulin Human Regular 0 unit 01/27/20 12:00 02/13/20 05:16 Humulin R SUB-Q Not Given Q6HR BRO Protocol Magnesium Hydroxide 30 ml 01/08/20 23:14 Milk Of Magnesia PO Q4H PRN Constipation Mirtazapine 15 mg 01/09/20 22:00 02/12/20 21:04 Remeron PO 15 mg QHS BRO Administration Multi-Ingred Cream/Lotion/Oil/Oint 1 applic 01/28/20 10:57 Artificial Tears Ophth Oint OU Q4HR PRN Dry Eye(s) Multivitamins 5 ml 02/09/20 12:00 02/12/20 10:08 Centrum Liq PO 5 ml QDAY BRO Administration Neomycin/Polymyxin/Bacitracin 1 applic 02/08/20 04:45 02/12/20 10:10 Triple Antibiotic TP 1 applic QDAY BRO Administration Ondansetron HCl 4 mg 01/08/20 23:14 Zofran IV Q8H PRN Nausea And Vomiting Scopolamine 1 each 02/05/20 10:00 02/11/20 09:57 Transderm-Scop TD 1 each Q3D BRO Administration Simple Syrup 15 ml 01/17/20 08:37 Simple Syrup FEEDTUBE PRN PRN Hypoglycemia Simple Syrup 30 ml 01/17/20 08:37 02/11/20 23:43 Simple Syrup FEEDTUBE 30 ml PRN PRN Administration Hypoglycemia Sodium Bicarbonate 325 mg 01/17/20 08:37 Sodium Bicarbonate FEEDTUBE PRN PRN For Clogged Feeding Tube Sodium Chloride 10 ml 01/09/20 10:00 02/12/20 21:04 Sodium Chloride Flush Syringe 10 Ml IV 10 ml BID BRO Administration Sodium Chloride 10 ml 01/08/20 23:14 Sodium Chloride Flush Syringe 10 Ml IV PRN PRN LINE FLUSH Trazodone HCl 25 mg 01/09/20 22:00 02/12/20 21:04 Desyrel PO 25 mg QHS BRO Administration Nutrition/Malnutrition Assess - Dietary Evaluation Nutrition/Malnutrition Findings: Nutrition Notes Start: 01/09/20 12:13 Freq: Status: Active Protocol: Document 02/12/20 11:15 BK (Rec: 02/12/20 11:28 BK [id number]) Co-Sign 02/12/20 11:15 LP Nutrition Notes Initial or Follow up Reassessment Current Diagnosis Decubitus(Pressure Ulcer), Diabetes,Sepsis Other Pertinent Diagnosis UTI, dementia, PE, Sacral wound Current Diet Vital AF 1.2 at 50ml/hr Labs/Tests 02/10 Na 146 BUN 24 Cr 0.4 BG 168 Pertinent Medications Reviewed Height 5 ft 2 in Weight 72 kg [place] Body Weight (kg) 50.00 BMI 29.0 Weight change and time frame Wt change noted. Pt 4+ pitting edema continues. Weight Status Overweight Subjective/Other Information F/U for stable TF and Na levels. Pt TF running at goal rate. Na levels remain slightly elevated. Percent of energy/protein needs met: 91%/100% Burn Absent Trauma Absent GI Symptoms Diarrhea Current % PO Negligible Minimum of two criteria Yes Fluid Accumulation Moderate to Severe (severe) Reduced Technical Artist Strength Measurably Reduced (severe) #3 Nutrition Diagnosis Malnutrition Diagnosis Progress(for reassessment Continues documentation) #2 Nutrition Diagnosis Inadequate oral intake Diagnosis Progress(for reassessment Continues documentation) #1 Nutrition Diagnosis Increased nutrient needs ( specify in comment below) Diagnosis Progress(for reassessment Continues documentation) Is patient on ventilator? Yes Is Patient Ambulatory and/or Out of Bed No REE-([facility]-confined to bed) 1437.756 Kcal/Kg value to use for calculation 22 Approximate Energy Requirements Using 1584 kcal/Kg Calculation Used for Recommendations Kcal/kg Additional Notes Pro: 81-98 g (1.25-1.5 g/kg) Fluid: 1ml/kcal Nutrition Intervention Change Diet Order: Continue Nutrition Support: Vital AF 1.2 at 50ml/hr Flush 250ml q4h per MD Kcal 1,440 Protein (gm) 90 Fluid (mL) 973 Goal #1 Meet at least 80% of kcal and protein needs via TF Goal #2 TF tolerance Goal #3 Wound Healing Anticipated Discharge Needs: Continue TF Follow-Up By: 02/16/20 Additional Comments F/U for stable TF and Na levels
[2020-02-13] MEDS: MULTIVITAMINS 5 ML ORAL LIQUID PO SCH (09:05)
[2020-02-13] MEDS: FAMOTIDINE 20 MG TAB PO SCH ×2 (09:05→22:25)
[2020-02-13] MEDS: FERROUS SULFATE 308 MG (62mg Elemental Iron) / 7 ML ELIXIR FEEDTUBE SCH (09:05)
[2020-02-13] MEDS: HEPARIN 5,000 UNIT/1 ML VIAL SUB-Q SCH ×2 (09:06→22:24)
[2020-02-13] MEDS: POTASSIUM CHLORIDE 10 MEQ 10 MEQ/100 ML BAG IV SCH ×2 (09:39→11:00)
--- NOTE | 2020-02-13 10:56 | Anesthesia Consultation ---
Anesthesia Consult and Med Hx Date of service: 02/13/20 - Airway Anesthetic Teeth Evaluation: Poor ROM Head & Neck: Adequate Mental/Hyoid Distance: Adequate Mallampati Class: Class II Intubation Access Assessment: Probably Good - Pre-Operative Health Status ASA Pre-Surgery Classification: ASA3 Proposed Anesthetic Plan: MAC - Pulmonary Hx Asthma: No COPD: No Hx Pneumonia: No - Cardiovascular System Hx Pacemaker: No Hx Internal Defibrillator: No - Central Nervous System Hx Psychiatric Problems: Yes (Dementia) - Endocrine Hx End Stage Renal Disease: No Hx Non-Insulin Dependent Diabetes: Yes
--- NOTE | 2020-02-13 11:02 | Anesthesia Day of Surgery ---
Anesthesia Day of Surgery - Day of Surgery Patient Examined: Yes Patient H&P Reviewed: Yes Patient is NPO: Yes
[2020-02-13] MEDS ORDERED: LIDOCAINE MPF (2%) 20 MG/1 ML VIAL 5 ML ONE (11:19)
[2020-02-13] MEDS ORDERED: propofoL 200 MG/20 ML VIAL IV ONE (11:20)
[2020-02-13] MEDS ORDERED: SUCCINYLCHOLINE CHLORIDE 200 MG/10 ML INJ MDV ONE (11:20)
[2020-02-13] MEDS ORDERED: HYDROmorphone 1 MG/1 ML INJ ONE (11:20)
--- NOTE | 2020-02-13 11:30 | Progress Note ---
Assessment and Plan Severe sepsis with shock. Left lung atelectasis. Left pleural effusion. Acute hypoxemic respiratory failure. Acute possibly on chronic encephalopathy. History of diabetes. Urinary tract infection. History of pulmonary embolism, diagnosed several months ago. Sacral decubitus ulcer. Dementia. Anemia that is normocytic. - for trach this am - hold SBT's today - continue care as below otherwise; - complete AB's per ID rec's (Zosyn) - continue to wean supplemental oxygen for target O2 sat's > 92% acutely - VAP bundle addressed - continue lung protective strategies - continue bronchodilators with pulmonary hygiene per RT - wean per pulmonary driven protocols otherwise - continue accuchecks with glycemic control per SSI (While critically ill target blood glucose of 140-180 mg/dL; avoid hypoglycemia) - sedation prn for target RASS 0 to -1 - avoid nephrotoxins, renally dose all medications - continue to avoid benzodiazepine's, reduce the possibility of delirium - prn analgesia per CPOT score - Maintenance of sleep-wake cycle, avoid delirium - continue enteral nutritional support at goal rate as tolerated - G.I. & VTE prophylaxis with famotidine and heparin - PT/OT/ROM exercises - continue mobility protocols for pressure ulcer prophylaxis - Monitor hemodynamics closely - continue other care per attending / other consultants - discharge planning ongoing concurrently .... Re-evaluate in am & prn CONDITION: CRITICAL PROGNOSIS: GUARDED CODE STATUS: FULL CODE The high probability of a clinically significant, sudden or life-threatening deterioration of the [respiratory, cardiovascular & neurologic] system(s) r equired my full and direct attention, intervention and personal management. The aggregate critical care time was [33] minutes without overlap. Time includes spent on; [x] Data Review and interpretation [x] Patient assessment and monitoring of vital signs [x] Documentation [x] Medication orders and management Subjective Date of service: 02/13/20 Principal diagnosis: Septic Shock; S/P Cardiac Arrest; Ac. hypoxemic resp failure; UTI Interval history: Patient is seen today for: Severe sepsis with shock; S/P Cardiac Arrest; L. lung atelectasis / L. pleural effusion; Acute hypoxemic respiratory failure; Acute possibly on chronic encephalopathy; DM II; UTI; VTE Seen and examined at bedside; 24hour events reviewed; nursing and respiratory care staff consulted; no adverse overnight events reported to me; resting peacefully in bed; to OR shortly for tracheostomy today; AMS is persistent Objective Vital Signs - 12hr 02/12/20 02/13/20 02/13/20 23:57 00:00 00:30 Temperature 97.8 F Pulse Rate 101 H 104 H 100 H Pulse Rate [ From Monitor] Respiratory 23 25 H 25 H Rate Blood Pressure 115/64 113/65 113/57 O2 Sat by Pulse 100 100 100 Oximetry 02/13/20 02/13/20 02/13/20 01:00 01:30 02:00 Temperature Pulse Rate 90 90 93 H Pulse Rate [ From Monitor] Respiratory 23 18 22 Rate Blood Pressure 108/54 111/55 112/60 O2 Sat by Pulse 100 100 100 Oximetry 02/13/20 02/13/20 02/13/20 02:30 03:00 03:26 Temperature 97.9 F Pulse Rate 100 H 100 H Pulse Rate [ From Monitor] Respiratory 23 23 Rate Blood Pressure 121/64 117/63 O2 Sat by Pulse 100 100 Oximetry 02/13/20 02/13/20 02/13/20 03:30 04:00 04:30 Temperature Pulse Rate 112 H 111 H 104 H Pulse Rate [ From Monitor] Respiratory 25 H 35 H 19 Rate Blood Pressure 111/72 117/64 111/62 O2 Sat by Pulse 99 92 100 Oximetry 02/13/20 02/13/20 02/13/20 05:00 05:02 05:30 Temperature Pulse Rate 104 H 105 H 109 H Pulse Rate [ From Monitor] Respiratory 24 24 Rate Blood Pressure 113/63 113/63 114/69 O2 Sat by Pulse 100 100 100 Oximetry 02/13/20 02/13/20 02/13/20 06:00 06:30 07:00 Temperature Pulse Rate 108 H 110 H 108 H Pulse Rate [ From Monitor] Respiratory 22 23 16 Rate Blood Pressure 127/69 138/63 121/77 O2 Sat by Pulse 100 100 100 Oximetry 02/13/20 02/13/20 02/13/20 07:30 07:54 08:00 Temperature 98.1 F Pulse Rate 113 H 111 H 109 H Pulse Rate [ 109 H From Monitor] Respiratory 25 H 21 29 H Rate Blood Pressure 135/77 115/61 112/62 O2 Sat by Pulse 100 100 100 Oximetry 02/13/20 02/13/20 02/13/20 08:30 09:00 09:30 Temperature Pulse Rate 107 H 106 H 107 H Pulse Rate [ From Monitor] Respiratory 20 25 H 25 H Rate Blood Pressure 114/59 116/59 115/57 O2 Sat by Pulse 100 100 100 Oximetry 02/13/20 02/13/20 10:00 11:18 Temperature Pulse Rate 116 H 110 H Pulse Rate [ From Monitor] Respiratory 18 Rate Blood Pressure 121/60 123/64 O2 Sat by Pulse 100 100 Oximetry Constitutional: no acute distress, alert, other (elderly chronically ill looking female orally intubated to [facility] [place]) Eyes: non-icteric ENT: oropharynx moist, other (ETT 7.5 cm at 22 [address]) Neck: supple, no lymphadenopathy Effort: normal Ascultation: Bilateral: diminished breath sounds, rhonchi (scant) Percussion: Bilateral: not dull Cardiovascular: regular rate and rhythm, other (S1,S2) Gastrointestinal: normoactive bowel sounds, soft, non-tender, other (PEG in place) Integumentary: decubitus ulcer Extremities: no cyanosis, pulses normal, no ischemia or petechiae, edema, other (bilateral upper extremity edema) Neurologic: pupils equal and round, other (awake and alert, not obeying commands) Psychiatric: other (Unable to assess secondary to mental status) CBC and BMP: 02/18/20 04:43 02/18/20 04:43 ABG, PT/INR, D-dimer: ABG ABG pH 7.463 pH Units (7.350-7.450) H 02/13/20 04:30 POC ABG pCO2 38.5 mmHg (32.0-48.0) 02/11/20 03:43 ABG pCO2 39.6 mm Hg 02/13/20 04:30 POC ABG pO2 112.6 mmHg (83-108) H 02/11/20 03:43 ABG pO2 98.4 mm Hg (80.0-90.0) H 02/13/20 04:30 POC ABG HCO3 28 02/11/20 03:43 ABG O2 Saturation 97.7 % (95.0-99.0) 02/13/20 04:30 PT/INR, D-dimer PT 14.4 Sec. (12.2-14.9) 02/02/20 05:25 INR 1.11 (0.87-1.13) 02/02/20 05:25 Abnormal lab findings: Abnormal Labs 01/08/20 01/08/20 01/08/20 16:29 16:29 16:29 WBC 13.5 H RBC Hgb Hct MCHC RDW 15.5 H Plt Count MCH Lymph % (Auto) Lymph # Lymph # (Auto) Seg Neutrophils % Seg Neuts % (Manual) 85.0 H Lymphocytes % (Manual) 11.0 L Seg Neutrophils # Seg Neutrophils # Man 11.5 H Nucleated RBC % Lymphocytes # (Manual) Monocytes # (Manual) PT INR Heparin Anti-Xa Level POC ABG pO2 ABG pH POC ABG pCO2 ABG Hemoglobin ABG Oxyhemoglobin ABG pO2 ABG HCO3 ABG O2 Saturation ABG Base Excess ABG Potassium ABG Chloride ABG Glucose Oxyhemoglobin Sodium 161 H* Potassium Chloride 125.5 H Carbon Dioxide 20 L BUN 30 H Creatinine Glucose 115 H POC Glucose Lactic Acid 2.20 H* Calcium 7.9 L AST 48 H Phosphorus Total Protein Albumin 2.5 L C-Reactive Protein Arterial Blood Glucose Arterial Blood Ionized Calcium Urine WBC (Auto) Crossmatch 01/08/20 01/08/20 01/08/20 19:02 23:30 Unknown WBC RBC Hgb Hct MCHC RDW Plt Count MCH Lymph % (Auto) Lymph # Lymph # (Auto) Seg Neutrophils % Seg Neuts % (Manual) Lymphocytes % (Manual) Seg Neutrophils # Seg Neutrophils # Man Nucleated RBC % Lymphocytes # (Manual) Monocytes # (Manual) PT INR Heparin Anti-Xa Level POC ABG pO2 ABG pH POC ABG pCO2 ABG Hemoglobin ABG Oxyhemoglobin ABG pO2 ABG HCO3 ABG O2 Saturation ABG Base Excess ABG Potassium ABG Chloride ABG Glucose Oxyhemoglobin Sodium Potassium Chloride Carbon Dioxide BUN Creatinine Glucose POC Glucose Lactic Acid 2.10 H* 2.50 H* Calcium AST Phosphorus Total Protein Albumin C-Reactive Protein Arterial Blood Glucose Arterial Blood Ionized Calcium Urine WBC (Auto) 11.0 H Crossmatch 01/09/20 01/09/20 01/09/20 00:19 00:54 05:52 WBC 13.5 H RBC 3.02 L Hgb 9.0 L D Hct 27.4 L D MCHC RDW Plt Count MCH Lymph % (Auto) 9.1 L Lymph # Lymph # (Auto) Seg Neutrophils % 87.6 H Seg Neuts % (Manual) Lymphocytes % (Manual) Seg Neutrophils # 11.8 H Seg Neutrophils # Man Nucleated RBC % Lymphocytes # (Manual) Monocytes # (Manual) PT INR Heparin Anti-Xa Level POC ABG pO2 ABG pH POC ABG pCO2 ABG Hemoglobin ABG Oxyhemoglobin ABG pO2 ABG HCO3 ABG O2 Saturation ABG Base Excess ABG Potassium ABG Chloride ABG Glucose Oxyhemoglobin Sodium Potassium Chloride Carbon Dioxide BUN Creatinine Glucose POC Glucose 118 H 116 H Lactic Acid Calcium AST Phosphorus Total Protein Albumin C-Reactive Protein Arterial Blood Glucose Arterial Blood Ionized Calcium Urine WBC (Auto) Crossmatch 01/09/20 01/09/20 01/09/20 05:52 05:52 13:03 WBC RBC Hgb Hct MCHC RDW Plt Count MCH Lymph % (Auto) Lymph # Lymph # (Auto) Seg Neutrophils % Seg Neuts % (Manual) Lymphocytes % (Manual) Seg Neutrophils # Seg Neutrophils # Man Nucleated RBC % Lymphocytes # (Manual) Monocytes # (Manual) PT 17.1 H INR 1.36 H Heparin Anti-Xa Level POC ABG pO2 ABG pH POC ABG pCO2 ABG Hemoglobin ABG Oxyhemoglobin ABG pO2 ABG HCO3 ABG O2 Saturation ABG Base Excess ABG Potassium ABG Chloride ABG Glucose Oxyhemoglobin Sodium 162 H* Potassium 3.0 L D Chloride 128.3 H Carbon Dioxide BUN 23 H Creatinine Glucose POC Glucose 55 L Lactic Acid Calcium 7.6 L AST Phosphorus Total Protein Albumin C-Reactive Protein Arterial Blood Glucose Arterial Blood Ionized Calcium Urine WBC (Auto) Crossmatch 01/09/20 01/09/20 01/09/20 21:22 21:50 22:28 WBC RBC Hgb Hct MCHC RDW Plt Count MCH Lymph % (Auto) Lymph # Lymph # (Auto) Seg Neutrophils % Seg Neuts % (Manual) Lymphocytes % (Manual) Seg Neutrophils # Seg Neutrophils # Man Nucleated RBC % Lymphocytes # (Manual) Monocytes # (Manual) PT INR Heparin Anti-Xa Level POC ABG pO2 ABG pH POC ABG pCO2 ABG Hemoglobin ABG Oxyhemoglobin ABG pO2 ABG HCO3 ABG O2 Saturation ABG Base Excess ABG Potassium ABG Chloride ABG Glucose Oxyhemoglobin Sodium 159 H Potassium 5.1 H D Chloride 128.5 H Carbon Dioxide 16 L BUN 23 H Creatinine Glucose 51 L POC Glucose 52 L 106 H Lactic Acid Calcium 8.2 L AST Phosphorus Total Protein Albumin C-Reactive Protein Arterial Blood Glucose Arterial Blood Ionized Calcium Urine WBC (Auto) Crossmatch 01/10/20 01/10/20 01/10/20 05:23 09:11 10:10 WBC 13.4 H RBC Hgb Hct MCHC RDW Plt Count MCH Lymph % (Auto) 7.2 L Lymph # 1.0 L Lymph # (Auto) Seg Neutrophils % 90.0 H Seg Neuts % (Manual) Lymphocytes % (Manual) Seg Neutrophils # 12.0 H Seg Neutrophils # Man Nucleated RBC % Lymphocytes # (Manual) Monocytes # (Manual) PT INR Heparin Anti-Xa Level POC ABG pO2 ABG pH POC ABG pCO2 ABG Hemoglobin ABG Oxyhemoglobin ABG pO2 ABG HCO3 ABG O2 Saturation ABG Base Excess ABG Potassium ABG Chloride ABG Glucose Oxyhemoglobin Sodium 155 H Potassium Chloride 122.8 H Carbon Dioxide 21 L BUN 19 H Creatinine Glucose POC Glucose 120 H Lactic Acid Calcium AST Phosphorus Total Protein Albumin C-Reactive Protein Arterial Blood Glucose Arterial Blood Ionized Calcium Urine WBC (Auto) Crossmatch 01/10/20 01/10/20 01/10/20 11:47 11:57 17:09 WBC RBC Hgb Hct MCHC RDW Plt Count MCH Lymph % (Auto) Lymph # Lymph # (Auto) Seg Neutrophils % Seg Neuts % (Manual) Lymphocytes % (Manual) Seg Neutrophils # Seg Neutrophils # Man Nucleated RBC % Lymphocytes # (Manual) Monocytes # (Manual) PT INR Heparin Anti-Xa Level POC ABG pO2 ABG pH POC ABG pCO2 ABG Hemoglobin ABG Oxyhemoglobin ABG pO2 ABG HCO3 ABG O2 Saturation ABG Base Excess ABG Potassium ABG Chloride ABG Glucose Oxyhemoglobin Sodium 153 H Potassium Chloride 118.3 H Carbon Dioxide 20 L BUN 19 H Creatinine Glucose 113 H POC Glucose 142 H 125 H Lactic Acid Calcium AST Phosphorus Total Protein Albumin C-Reactive Protein Arterial Blood Glucose Arterial Blood Ionized Calcium Urine WBC (Auto) Crossmatch 01/10/20 01/10/20 01/11/20 20:27 22:00 00:45 WBC RBC Hgb Hct MCHC RDW Plt Count MCH Lymph % (Auto) Lymph # Lymph # (Auto) Seg Neutrophils % Seg Neuts % (Manual) Lymphocytes % (Manual) Seg Neutrophils # Seg Neutrophils # Man Nucleated RBC % Lymphocytes # (Manual) Monocytes # (Manual) PT INR Heparin Anti-Xa Level POC ABG pO2 ABG pH POC ABG pCO2 ABG Hemoglobin ABG Oxyhemoglobin ABG pO2 ABG HCO3 ABG O2 Saturation ABG Base Excess ABG Potassium ABG Chloride ABG Glucose Oxyhemoglobin Sodium 153 H 154 H Potassium 3.3 L 3.2 L Chloride 117.0 H 118.9 H Carbon Dioxide 20 L BUN Creatinine Glucose POC Glucose 136 H Lactic Acid Calcium 8.3 L 8.0 L AST Phosphorus Total Protein Albumin C-Reactive Protein Arterial Blood Glucose Arterial Blood Ionized Calcium Urine WBC (Auto) Crossmatch 01/11/20 01/11/20 01/11/20 07:06 08:03 11:54 WBC RBC Hgb Hct MCHC RDW Plt Count MCH Lymph % (Auto) Lymph # Lymph # (Auto) Seg Neutrophils % Seg Neuts % (Manual) Lymphocytes % (Manual) Seg Neutrophils # Seg Neutrophils # Man Nucleated RBC % Lymphocytes # (Manual) Monocytes # (Manual) PT INR Heparin Anti-Xa Level POC ABG pO2 ABG pH POC ABG pCO2 ABG Hemoglobin ABG Oxyhemoglobin ABG pO2 ABG HCO3 ABG O2 Saturation ABG Base Excess ABG Potassium ABG Chloride ABG Glucose Oxyhemoglobin Sodium 151 H Potassium Chloride 118.7 H Carbon Dioxide 21 L BUN Creatinine Glucose 107 H POC Glucose 118 H 164 H Lactic Acid Calcium 8.3 L AST Phosphorus Total Protein Albumin C-Reactive Protein Arterial Blood Glucose Arterial Blood Ionized Calcium Urine WBC (Auto) Crossmatch 01/11/20 01/12/20 01/12/20 16:28 00:19 05:40 WBC RBC Hgb Hct MCHC RDW Plt Count MCH Lymph % (Auto) Lymph # Lymph # (Auto) Seg Neutrophils % Seg Neuts % (Manual) Lymphocytes % (Manual) Seg Neutrophils # Seg Neutrophils # Man Nucleated RBC % Lymphocytes # (Manual) Monocytes # (Manual) PT INR Heparin Anti-Xa Level POC ABG pO2 ABG pH POC ABG pCO2 ABG Hemoglobin ABG Oxyhemoglobin ABG pO2 ABG HCO3 ABG O2 Saturation ABG Base Excess ABG Potassium ABG Chloride ABG Glucose Oxyhemoglobin Sodium 148 H Potassium Chloride 111.6 H Carbon Dioxide 19 L BUN Creatinine Glucose 128 H POC Glucose 132 H 179 H Lactic Acid Calcium 8.2 L AST Phosphorus Total Protein Albumin C-Reactive Protein Arterial Blood Glucose Arterial Blood Ionized Calcium Urine WBC (Auto) Crossmatch 01/12/20 01/12/2001/11/20 06:17 11:37 17:21 WBC RBC Hgb Hct MCHC RDW Plt Count MCH Lymph % (Auto) Lymph # Lymph # (Auto) Seg Neutrophils % Seg Neuts % (Manual) Lymphocytes % (Manual) Seg Neutrophils # Seg Neutrophils # Man Nucleated RBC % Lymphocytes # (Manual) Monocytes # (Manual) PT INR Heparin Anti-Xa Level POC ABG pO2 ABG pH POC ABG pCO2 ABG Hemoglobin ABG Oxyhemoglobin ABG pO2 ABG HCO3 ABG O2 Saturation ABG Base Excess ABG Potassium ABG Chloride ABG Glucose Oxyhemoglobin Sodium Potassium Chloride Carbon Dioxide BUN Creatinine Glucose POC Glucose 140 H 142 H 133 H Lactic Acid Calcium AST Phosphorus Total Protein Albumin C-Reactive Protein Arterial Blood Glucose Arterial Blood Ionized Calcium Urine WBC (Auto) Crossmatch 01/12/20 01/13/20 01/13/20 23:14 05:26 07:00 WBC RBC Hgb Hct MCHC RDW Plt Count MCH Lymph % (Auto) Lymph # Lymph # (Auto) Seg Neutrophils % Seg Neuts % (Manual) Lymphocytes % (Manual) Seg Neutrophils # Seg Neutrophils # Man Nucleated RBC % Lymphocytes # (Manual) Monocytes # (Manual) PT INR Heparin Anti-Xa Level POC ABG pO2 ABG pH POC ABG pCO2 ABG Hemoglobin ABG Oxyhemoglobin ABG pO2 ABG HCO3 ABG O2 Saturation ABG Base Excess ABG Potassium ABG Chloride ABG Glucose Oxyhemoglobin Sodium Potassium Chloride 110.0 H Carbon Dioxide BUN Creatinine Glucose 139 H POC Glucose 135 H 162 H Lactic Acid Calcium 7.8 L AST Phosphorus Total Protein Albumin C-Reactive Protein Arterial Blood Glucose Arterial Blood Ionized Calcium Urine WBC (Auto) Crossmatch 01/13/20 01/13/20 01/13/20 12:14 17:52 21:40 WBC RBC Hgb Hct MCHC RDW Plt Count MCH Lymph % (Auto) Lymph # Lymph # (Auto) Seg Neutrophils % Seg Neuts % (Manual) Lymphocytes % (Manual) Seg Neutrophils # Seg Neutrophils # Man Nucleated RBC % Lymphocytes # (Manual) Monocytes # (Manual) PT INR Heparin Anti-Xa Level POC ABG pO2 ABG pH POC ABG pCO2 ABG Hemoglobin ABG Oxyhemoglobin ABG pO2 ABG HCO3 ABG O2 Saturation ABG Base Excess ABG Potassium ABG Chloride ABG Glucose Oxyhemoglobin Sodium Potassium Chloride Carbon Dioxide BUN Creatinine Glucose POC Glucose 205 H 172 H 186 H Lactic Acid Calcium AST Phosphorus Total Protein Albumin C-Reactive Protein Arterial Blood Glucose Arterial Blood Ionized Calcium Urine WBC (Auto) Crossmatch 01/14/20 01/14/20 01/14/20 04:28 11:01 11:01 WBC 14.8 H RBC 3.20 L Hgb 9.5 L Hct 28.0 L MCHC RDW Plt Count MCH Lymph % (Auto) Lymph # Lymph # (Auto) Seg Neutrophils % Seg Neuts % (Manual) Lymphocytes % (Manual) Seg Neutrophils # Seg Neutrophils # Man Nucleated RBC % Lymphocytes # (Manual) Monocytes # (Manual) PT INR Heparin Anti-Xa Level POC ABG pO2 ABG pH POC ABG pCO2 ABG Hemoglobin ABG Oxyhemoglobin ABG pO2 ABG HCO3 ABG O2 Saturation ABG Base Excess ABG Potassium ABG Chloride ABG Glucose Oxyhemoglobin Sodium Potassium 3.2 L Chloride Carbon Dioxide BUN Creatinine 0.4 L Glucose POC Glucose 115 H Lactic Acid Calcium 8.0 L AST Phosphorus Total Protein Albumin C-Reactive Protein Arterial Blood Glucose Arterial Blood Ionized Calcium Urine WBC (Auto) Crossmatch 01/14/20 01/14/20 01/14/20 11:01 16:33 22:32 WBC RBC Hgb Hct MCHC RDW Plt Count MCH Lymph % (Auto) Lymph # Lymph # (Auto) Seg Neutrophils % Seg Neuts % (Manual) Lymphocytes % (Manual) Seg Neutrophils # Seg Neutrophils # Man Nucleated RBC % Lymphocytes # (Manual) Monocytes # (Manual) PT 15.8 H INR 1.23 H Heparin Anti-Xa Level POC ABG pO2 ABG pH POC ABG pCO2 ABG Hemoglobin ABG Oxyhemoglobin ABG pO2 ABG HCO3 ABG O2 Saturation ABG Base Excess ABG Potassium ABG Chloride ABG Glucose Oxyhemoglobin Sodium Potassium Chloride Carbon Dioxide BUN Creatinine Glucose POC Glucose 58 L 188 H Lactic Acid Calcium AST Phosphorus Total Protein Albumin C-Reactive Protein Arterial Blood Glucose Arterial Blood Ionized Calcium Urine WBC (Auto) Crossmatch 01/15/20 01/15/20 01/15/20 05:35 06:19 17:17 WBC RBC Hgb Hct MCHC RDW Plt Count MCH Lymph % (Auto) Lymph # Lymph # (Auto) Seg Neutrophils % Seg Neuts % (Manual) Lymphocytes % (Manual) Seg Neutrophils # Seg Neutrophils # Man Nucleated RBC % Lymphocytes # (Manual) Monocytes # (Manual) PT INR Heparin Anti-Xa Level POC ABG pO2 ABG pH POC ABG pCO2 ABG Hemoglobin ABG Oxyhemoglobin ABG pO2 ABG HCO3 ABG O2 Saturation ABG Base Excess ABG Potassium ABG Chloride ABG Glucose Oxyhemoglobin Sodium Potassium Chloride Carbon Dioxide BUN Creatinine 0.5 L Glucose 104 H POC Glucose 106 H 183 H Lactic Acid Calcium 7.8 L AST Phosphorus Total Protein Albumin C-Reactive Protein Arterial Blood Glucose Arterial Blood Ionized Calcium Urine WBC (Auto) Crossmatch 01/15/20 01/16/20 01/16/20 22:29 05:35 05:59 WBC 14.7 H RBC 3.04 L Hgb 9.0 L Hct 27.0 L MCHC RDW Plt Count MCH Lymph % (Auto) 9.1 L Lymph # Lymph # (Auto) Seg Neutrophils % 87.3 H Seg Neuts % (Manual) Lymphocytes % (Manual) Seg Neutrophils # 12.9 H Seg Neutrophils # Man Nucleated RBC % Lymphocytes # (Manual) Monocytes # (Manual) PT INR Heparin Anti-Xa Level POC ABG pO2 ABG pH POC ABG pCO2 ABG Hemoglobin ABG Oxyhemoglobin ABG pO2 ABG HCO3 ABG O2 Saturation ABG Base Excess ABG Potassium ABG Chloride ABG Glucose Oxyhemoglobin Sodium Potassium Chloride Carbon Dioxide BUN Creatinine Glucose POC Glucose 228 H 130 H Lactic Acid Calcium AST Phosphorus Total Protein Albumin C-Reactive Protein Arterial Blood Glucose Arterial Blood Ionized Calcium Urine WBC (Auto) Crossmatch 01/16/20 01/16/20 01/16/20 09:52 12:49 17:30 WBC RBC Hgb Hct MCHC RDW Plt Count MCH Lymph % (Auto) Lymph # Lymph # (Auto) Seg Neutrophils % Seg Neuts % (Manual) Lymphocytes % (Manual) Seg Neutrophils # Seg Neutrophils # Man Nucleated RBC % Lymphocytes # (Manual) Monocytes # (Manual) PT INR Heparin Anti-Xa Level POC ABG pO2 ABG pH POC ABG pCO2 ABG Hemoglobin ABG Oxyhemoglobin ABG pO2 ABG HCO3 ABG O2 Saturation ABG Base Excess ABG Potassium ABG Chloride ABG Glucose Oxyhemoglobin Sodium Potassium Chloride Carbon Dioxide BUN Creatinine Glucose POC Glucose 122 H 142 H 192 H Lactic Acid Calcium AST Phosphorus Total Protein Albumin C-Reactive Protein Arterial Blood Glucose Arterial Blood Ionized Calcium Urine WBC (Auto) Crossmatch 01/16/20 01/17/20 01/17/20 23:01 08:36 08:36 WBC 12.7 H RBC 2.98 L Hgb 8.9 L Hct 26.4 L MCHC RDW Plt Count MCH Lymph % (Auto) 8.8 L Lymph # 1.1 L Lymph # (Auto) Seg Neutrophils % 86.7 H Seg Neuts % (Manual) Lymphocytes % (Manual) Seg Neutrophils # 11.0 H Seg Neutrophils # Man Nucleated RBC % Lymphocytes # (Manual) Monocytes # (Manual) PT INR Heparin Anti-Xa Level POC ABG pO2 ABG pH POC ABG pCO2 ABG Hemoglobin ABG Oxyhemoglobin ABG pO2 ABG HCO3 ABG O2 Saturation ABG Base Excess ABG Potassium ABG Chloride ABG Glucose Oxyhemoglobin Sodium Potassium 3.3 L D Chloride Carbon Dioxide BUN Creatinine 0.4 L Glucose POC Glucose 141 H Lactic Acid Calcium 8.1 L AST Phosphorus Total Protein 4.6 L Albumin 1.6 L C-Reactive Protein Arterial Blood Glucose Arterial Blood Ionized Calcium Urine WBC (Auto) Crossmatch 01/17/20 01/17/20 01/18/20 11:43 23:56 06:27 WBC RBC Hgb Hct MCHC RDW Plt Count MCH Lymph % (Auto) Lymph # Lymph # (Auto) Seg Neutrophils % Seg Neuts % (Manual) Lymphocytes % (Manual) Seg Neutrophils # Seg Neutrophils # Man Nucleated RBC % Lymphocytes # (Manual) Monocytes # (Manual) PT INR Heparin Anti-Xa Level POC ABG pO2 ABG pH POC ABG pCO2 ABG Hemoglobin ABG Oxyhemoglobin ABG pO2 ABG HCO3 ABG O2 Saturation ABG Base Excess ABG Potassium ABG Chloride ABG Glucose Oxyhemoglobin Sodium Potassium Chloride Carbon Dioxide BUN Creatinine Glucose POC Glucose 137 H 215 H 122 H Lactic Acid Calcium AST Phosphorus Total Protein Albumin C-Reactive Protein Arterial Blood Glucose Arterial Blood Ionized Calcium Urine WBC (Auto) Crossmatch 01/18/20 01/18/20 01/18/20 07:31 07:31 11:39 WBC 12.1 H RBC 3.23 L Hgb 9.7 L Hct 28.7 L MCHC RDW Plt Count MCH Lymph % (Auto) 9.2 L Lymph # 1.1 L Lymph # (Auto) Seg Neutrophils % 85.0 H Seg Neuts % (Manual) Lymphocytes % (Manual) Seg Neutrophils # 10.3 H Seg Neutrophils # Man Nucleated RBC % Lymphocytes # (Manual) Monocytes # (Manual) PT INR Heparin Anti-Xa Level POC ABG pO2 ABG pH POC ABG pCO2 ABG Hemoglobin ABG Oxyhemoglobin ABG pO2 ABG HCO3 ABG O2 Saturation ABG Base Excess ABG Potassium ABG Chloride ABG Glucose Oxyhemoglobin Sodium Potassium Chloride Carbon Dioxide BUN Creatinine 0.4 L Glucose 108 H POC Glucose 172 H Lactic Acid Calcium AST Phosphorus Total Protein 5.3 L Albumin 2.1 L C-Reactive Protein Arterial Blood Glucose Arterial Blood Ionized Calcium Urine WBC (Auto) Crossmatch 01/18/20 01/19/20 01/19/20 18:22 00:15 11:30 WBC RBC Hgb Hct MCHC RDW Plt Count MCH Lymph % (Auto) Lymph # Lymph # (Auto) Seg Neutrophils % Seg Neuts % (Manual) Lymphocytes % (Manual) Seg Neutrophils # Seg Neutrophils # Man Nucleated RBC % Lymphocytes # (Manual) Monocytes # (Manual) PT INR Heparin Anti-Xa Level POC ABG pO2 ABG pH POC ABG pCO2 ABG Hemoglobin ABG Oxyhemoglobin ABG pO2 ABG HCO3 ABG O2 Saturation ABG Base Excess ABG Potassium ABG Chloride ABG Glucose Oxyhemoglobin Sodium Potassium Chloride Carbon Dioxide BUN Creatinine Glucose POC Glucose 119 H 135 H 163 H Lactic Acid Calcium AST Phosphorus Total Protein Albumin C-Reactive Protein Arterial Blood Glucose Arterial Blood Ionized Calcium Urine WBC (Auto) Crossmatch 01/19/20 01/19/20 01/20/20 17:44 22:59 03:44 WBC 11.1 H RBC 2.77 L Hgb 8.4 L Hct 25.0 L MCHC RDW Plt Count MCH Lymph % (Auto) Lymph # Lymph # (Auto) Seg Neutrophils % 74.6 H Seg Neuts % (Manual) Lymphocytes % (Manual) Seg Neutrophils # 8.3 H Seg Neutrophils # Man Nucleated RBC % Lymphocytes # (Manual) Monocytes # (Manual) PT INR Heparin Anti-Xa Level POC ABG pO2 ABG pH POC ABG pCO2 ABG Hemoglobin ABG Oxyhemoglobin ABG pO2 ABG HCO3 ABG O2 Saturation ABG Base Excess ABG Potassium ABG Chloride ABG Glucose Oxyhemoglobin Sodium Potassium Chloride Carbon Dioxide BUN Creatinine Glucose POC Glucose 161 H 182 H Lactic Acid Calcium AST Phosphorus Total Protein Albumin C-Reactive Protein Arterial Blood Glucose Arterial Blood Ionized Calcium Urine WBC (Auto) Crossmatch 01/20/20 01/21/2020 03:44 00:07 05:51 WBC RBC 2.84 L Hgb 8.6 L Hct 25.5 L MCHC RDW Plt Count 463 H MCH Lymph % (Auto) Lymph # Lymph # (Auto) Seg Neutrophils % 76.9 H Seg Neuts % (Manual) Lymphocytes % (Manual) Seg Neutrophils # 7.8 H Seg Neutrophils # Man Nucleated RBC % Lymphocytes # (Manual) Monocytes # (Manual) PT INR Heparin Anti-Xa Level POC ABG pO2 ABG pH POC ABG pCO2 ABG Hemoglobin ABG Oxyhemoglobin ABG pO2 ABG HCO3 ABG O2 Saturation ABG Base Excess ABG Potassium ABG Chloride ABG Glucose Oxyhemoglobin Sodium Potassium Chloride Carbon Dioxide BUN Creatinine 0.4 L Glucose POC Glucose 68 L Lactic Acid Calcium 7.9 L AST Phosphorus Total Protein 4.7 L Albumin 1.9 L C-Reactive Protein Arterial Blood Glucose Arterial Blood Ionized Calcium Urine WBC (Auto) Crossmatch 01/21/20 01/21/20 01/21/20 05:51 05:58 11:25 WBC RBC Hgb Hct MCHC RDW Plt Count MCH Lymph % (Auto) Lymph # Lymph # (Auto) Seg Neutrophils % Seg Neuts % (Manual) Lymphocytes % (Manual) Seg Neutrophils # Seg Neutrophils # Man Nucleated RBC % Lymphocytes # (Manual) Monocytes # (Manual) PT INR Heparin Anti-Xa Level POC ABG pO2 ABG pH POC ABG pCO2 ABG Hemoglobin ABG Oxyhemoglobin ABG pO2 ABG HCO3 ABG O2 Saturation ABG Base Excess ABG Potassium ABG Chloride ABG Glucose Oxyhemoglobin Sodium Potassium Chloride Carbon Dioxide 20 L BUN Creatinine 0.5 L Glucose 130 H POC Glucose 185 H 163 H Lactic Acid Calcium 7.6 L AST Phosphorus Total Protein 5.0 L Albumin 1.9 L C-Reactive Protein Arterial Blood Glucose Arterial Blood Ionized Calcium Urine WBC (Auto) Crossmatch 01/21/20 01/21/20 01/22/20 16:22 21:17 01:28 WBC RBC 2.60 L Hgb 8.0 L Hct 23.3 L MCHC RDW Plt Count MCH Lymph % (Auto) Lymph # Lymph # (Auto) Seg Neutrophils % 74.8 H Seg Neuts % (Manual) Lymphocytes % (Manual) Seg Neutrophils # Seg Neutrophils # Man Nucleated RBC % Lymphocytes # (Manual) Monocytes # (Manual) PT INR Heparin Anti-Xa Level POC ABG pO2 ABG pH POC ABG pCO2 ABG Hemoglobin ABG Oxyhemoglobin ABG pO2 ABG HCO3 ABG O2 Saturation ABG Base Excess ABG Potassium ABG Chloride ABG Glucose Oxyhemoglobin Sodium Potassium Chloride Carbon Dioxide BUN Creatinine Glucose POC Glucose 177 H 67 L Lactic Acid Calcium AST Phosphorus Total Protein Albumin C-Reactive Protein Arterial Blood Glucose Arterial Blood Ionized Calcium Urine WBC (Auto) Crossmatch 01/22/20 01/22/20 01/22/20 01:28 01:28 12:06 WBC RBC Hgb Hct MCHC RDW Plt Count MCH Lymph % (Auto) Lymph # Lymph # (Auto) Seg Neutrophils % Seg Neuts % (Manual) Lymphocytes % (Manual) Seg Neutrophils # Seg Neutrophils # Man Nucleated RBC % Lymphocytes # (Manual) Monocytes # (Manual) PT INR Heparin Anti-Xa Level POC ABG pO2 ABG pH POC ABG pCO2 ABG Hemoglobin ABG Oxyhemoglobin ABG pO2 ABG HCO3 ABG O2 Saturation ABG Base Excess ABG Potassium ABG Chloride ABG Glucose Oxyhemoglobin Sodium Potassium Chloride 107.6 H Carbon Dioxide BUN Creatinine 0.4 L Glucose 152 H POC Glucose 203 H 140 H Lactic Acid Calcium 7.5 L AST Phosphorus Total Protein 4.0 L Albumin 2.0 L C-Reactive Protein Arterial Blood Glucose Arterial Blood Ionized Calcium Urine WBC (Auto) Crossmatch 01/22/20 01/22/20 01/23/20 16:24 22:55 06:10 WBC RBC 2.68 L Hgb 8.6 L Hct 24.1 L MCHC 36 H RDW Plt Count MCH Lymph % (Auto) Lymph # Lymph # (Auto) Seg Neutrophils % Seg Neuts % (Manual) 71.0 H Lymphocytes % (Manual) Seg Neutrophils # Seg Neutrophils # Man Nucleated RBC % Lymphocytes # (Manual) Monocytes # (Manual) PT INR Heparin Anti-Xa Level POC ABG pO2 ABG pH POC ABG pCO2 ABG Hemoglobin ABG Oxyhemoglobin ABG pO2 ABG HCO3 ABG O2 Saturation ABG Base Excess ABG Potassium ABG Chloride ABG Glucose Oxyhemoglobin Sodium Potassium Chloride Carbon Dioxide BUN Creatinine Glucose POC Glucose 205 H 196 H Lactic Acid Calcium AST Phosphorus Total Protein Albumin C-Reactive Protein Arterial Blood Glucose Arterial Blood Ionized Calcium Urine WBC (Auto) Crossmatch 01/23/20 01/23/20 01/23/20 06:10 07:35 11:59 WBC RBC Hgb Hct MCHC RDW Plt Count MCH Lymph % (Auto) Lymph # Lymph # (Auto) Seg Neutrophils % Seg Neuts % (Manual) Lymphocytes % (Manual) Seg Neutrophils # Seg Neutrophils # Man Nucleated RBC % Lymphocytes # (Manual) Monocytes # (Manual) PT INR Heparin Anti-Xa Level POC ABG pO2 ABG pH POC ABG pCO2 ABG Hemoglobin ABG Oxyhemoglobin ABG pO2 ABG HCO3 ABG O2 Saturation ABG Base Excess ABG Potassium ABG Chloride ABG Glucose Oxyhemoglobin Sodium Potassium Chloride 108.8 H Carbon Dioxide BUN Creatinine 0.4 L Glucose 105 H POC Glucose 111 H 123 H Lactic Acid Calcium 8.0 L AST Phosphorus Total Protein 4.9 L D Albumin 2.0 L C-Reactive Protein Arterial Blood Glucose Arterial Blood Ionized Calcium Urine WBC (Auto) Crossmatch 01/23/20 01/24/20 01/24/20 22:45 11:24 16:41 WBC RBC Hgb Hct MCHC RDW Plt Count MCH Lymph % (Auto) Lymph # Lymph # (Auto) Seg Neutrophils % Seg Neuts % (Manual) Lymphocytes % (Manual) Seg Neutrophils # Seg Neutrophils # Man Nucleated RBC % Lymphocytes # (Manual) Monocytes # (Manual) PT INR Heparin Anti-Xa Level POC ABG pO2 ABG pH POC ABG pCO2 ABG Hemoglobin ABG Oxyhemoglobin ABG pO2 ABG HCO3 ABG O2 Saturation ABG Base Excess ABG Potassium ABG Chloride ABG Glucose Oxyhemoglobin Sodium Potassium Chloride Carbon Dioxide BUN Creatinine Glucose POC Glucose 180 H 182 H 177 H Lactic Acid Calcium AST Phosphorus Total Protein Albumin C-Reactive Protein Arterial Blood Glucose Arterial Blood Ionized Calcium Urine WBC (Auto) Crossmatch 01/24/20 01/25/20 01/25/20 23:11 07:12 11:35 WBC RBC Hgb Hct MCHC RDW Plt Count MCH Lymph % (Auto) Lymph # Lymph # (Auto) Seg Neutrophils % Seg Neuts % (Manual) Lymphocytes % (Manual) Seg Neutrophils # Seg Neutrophils # Man Nucleated RBC % Lymphocytes # (Manual) Monocytes # (Manual) PT INR Heparin Anti-Xa Level POC ABG pO2 ABG pH POC ABG pCO2 ABG Hemoglobin ABG Oxyhemoglobin ABG pO2 ABG HCO3 ABG O2 Saturation ABG Base Excess ABG Potassium ABG Chloride ABG Glucose Oxyhemoglobin Sodium Potassium Chloride Carbon Dioxide BUN Creatinine Glucose POC Glucose 142 H 135 H 142 H Lactic Acid Calcium AST Phosphorus Total Protein Albumin C-Reactive Protein Arterial Blood Glucose Arterial Blood Ionized Calcium Urine WBC (Auto) Crossmatch 01/25/20 01/26/20 01/26/20 16:33 00:04 11:35 WBC RBC Hgb Hct MCHC RDW Plt Count MCH Lymph % (Auto) Lymph # Lymph # (Auto) Seg Neutrophils % Seg Neuts % (Manual) Lymphocytes % (Manual) Seg Neutrophils # Seg Neutrophils # Man Nucleated RBC % Lymphocytes # (Manual) Monocytes # (Manual) PT INR Heparin Anti-Xa Level POC ABG pO2 ABG pH POC ABG pCO2 ABG Hemoglobin ABG Oxyhemoglobin ABG pO2 ABG HCO3 ABG O2 Saturation ABG Base Excess ABG Potassium ABG Chloride ABG Glucose Oxyhemoglobin Sodium Potassium Chloride Carbon Dioxide BUN Creatinine Glucose POC Glucose 247 H 233 H 200 H Lactic Acid Calcium AST Phosphorus Total Protein Albumin C-Reactive Protein Arterial Blood Glucose Arterial Blood Ionized Calcium Urine WBC (Auto) Crossmatch 01/26/20 01/26/20 01/26/20 16:30 16:30 17:19 WBC RBC Hgb 7.4 L Hct 22.0 L MCHC RDW Plt Count MCH Lymph % (Auto) Lymph # Lymph # (Auto) Seg Neutrophils % Seg Neuts % (Manual) Lymphocytes % (Manual) Seg Neutrophils # Seg Neutrophils # Man Nucleated RBC % Lymphocytes # (Manual) Monocytes # (Manual) PT 18.4 H INR 1.50 H Heparin Anti-Xa Level POC ABG pO2 ABG pH POC ABG pCO2 ABG Hemoglobin ABG Oxyhemoglobin ABG pO2 ABG HCO3 ABG O2 Saturation ABG Base Excess ABG Potassium ABG Chloride ABG Glucose Oxyhemoglobin Sodium Potassium Chloride Carbon Dioxide BUN Creatinine Glucose POC Glucose 67 L Lactic Acid Calcium AST Phosphorus Total Protein Albumin C-Reactive Protein Arterial Blood Glucose Arterial Blood Ionized Calcium Urine WBC (Auto) Crossmatch 01/26/20 01/26/20 01/27/20 20:24 21:32 00:16 WBC RBC Hgb Hct MCHC RDW Plt Count MCH Lymph % (Auto) Lymph # Lymph # (Auto) Seg Neutrophils % Seg Neuts % (Manual) Lymphocytes % (Manual) Seg Neutrophils # Seg Neutrophils # Man Nucleated RBC % Lymphocytes # (Manual) Monocytes # (Manual) PT INR Heparin Anti-Xa Level POC ABG pO2 51.8 L ABG pH POC ABG pCO2 ABG Hemoglobin 8.5 L ABG Oxyhemoglobin 84.7 L ABG pO2 ABG HCO3 ABG O2 Saturation ABG Base Excess ABG Potassium ABG Chloride ABG Glucose Oxyhemoglobin Sodium Potassium Chloride Carbon Dioxide BUN Creatinine Glucose POC Glucose 162 H 141 H Lactic Acid Calcium AST Phosphorus Total Protein Albumin C-Reactive Protein Arterial Blood Glucose Arterial Blood Ionized Calcium Urine WBC (Auto) Crossmatch 01/27/20 01/27/20 01/27/20 01:42 02:18 05:57 WBC RBC Hgb Hct MCHC RDW Plt Count MCH Lymph % (Auto) Lymph # Lymph # (Auto) Seg Neutrophils % Seg Neuts % (Manual) Lymphocytes % (Manual) Seg Neutrophils # Seg Neutrophils # Man Nucleated RBC % Lymphocytes # (Manual) Monocytes # (Manual) PT INR Heparin Anti-Xa Level 2.00 H POC ABG pO2 ABG pH POC ABG pCO2 ABG Hemoglobin ABG Oxyhemoglobin ABG pO2 ABG HCO3 ABG O2 Saturation ABG Base Excess ABG Potassium ABG Chloride ABG Glucose Oxyhemoglobin Sodium Potassium Chloride Carbon Dioxide BUN Creatinine Glucose POC Glucose 183 H 124 H Lactic Acid Calcium AST Phosphorus Total Protein Albumin C-Reactive Protein Arterial Blood Glucose Arterial Blood Ionized Calcium Urine WBC (Auto) Crossmatch 01/27/20 01/27/20 01/27/20 06:30 06:30 12:23 WBC RBC 2.75 L Hgb 8.4 L Hct 24.9 L MCHC RDW 16.0 H Plt Count 474 H MCH Lymph % (Auto) 12.7 L Lymph # Lymph # (Auto) Seg Neutrophils % 83.2 H Seg Neuts % (Manual) Lymphocytes % (Manual) Seg Neutrophils # 8.4 H Seg Neutrophils # Man Nucleated RBC % Lymphocytes # (Manual) Monocytes # (Manual) PT INR Heparin Anti-Xa Level POC ABG pO2 ABG pH POC ABG pCO2 ABG Hemoglobin ABG Oxyhemoglobin ABG pO2 ABG HCO3 ABG O2 Saturation ABG Base Excess ABG Potassium ABG Chloride ABG Glucose Oxyhemoglobin Sodium Potassium 3.5 L Chloride 110.2 H Carbon Dioxide BUN Creatinine 0.4 L Glucose 101 H POC Glucose 126 H Lactic Acid Calcium 7.8 L AST Phosphorus Total Protein Albumin C-Reactive Protein Arterial Blood Glucose Arterial Blood Ionized Calcium Urine WBC (Auto) Crossmatch 01/27/20 01/27/20 01/28/20 17:31 23:40 00:00 WBC RBC Hgb Hct MCHC RDW Plt Count MCH Lymph % (Auto) Lymph # Lymph # (Auto) Seg Neutrophils % Seg Neuts % (Manual) Lymphocytes % (Manual) Seg Neutrophils # Seg Neutrophils # Man Nucleated RBC % Lymphocytes # (Manual) Monocytes # (Manual) PT INR Heparin Anti-Xa Level 2.00 H POC ABG pO2 ABG pH POC ABG pCO2 ABG Hemoglobin ABG Oxyhemoglobin ABG pO2 ABG HCO3 ABG O2 Saturation ABG Base Excess ABG Potassium ABG Chloride ABG Glucose Oxyhemoglobin Sodium Potassium Chloride Carbon Dioxide BUN Creatinine Glucose POC Glucose 133 H 136 H Lactic Acid Calcium AST Phosphorus Total Protein Albumin C-Reactive Protein Arterial Blood Glucose Arterial Blood Ionized Calcium Urine WBC (Auto) Crossmatch 01/28/20 01/28/20 01/28/20 04:26 04:26 05:35 WBC RBC Hgb 9.6 L Hct 28.5 L MCHC RDW Plt Count 508 H MCH Lymph % (Auto) Lymph # Lymph # (Auto) Seg Neutrophils % Seg Neuts % (Manual) Lymphocytes % (Manual) Seg Neutrophils # Seg Neutrophils # Man Nucleated RBC % Lymphocytes # (Manual) Monocytes # (Manual) PT INR Heparin Anti-Xa Level POC ABG pO2 ABG pH POC ABG pCO2 ABG Hemoglobin ABG Oxyhemoglobin ABG pO2 ABG HCO3 ABG O2 Saturation ABG Base Excess ABG Potassium ABG Chloride ABG Glucose Oxyhemoglobin Sodium Potassium Chloride Carbon Dioxide 19 L BUN 20 H Creatinine 0.5 L Glucose 103 H POC Glucose 135 H Lactic Acid Calcium 7.9 L AST Phosphorus Total Protein Albumin C-Reactive Protein Arterial Blood Glucose Arterial Blood Ionized Calcium Urine WBC (Auto) Crossmatch 01/28/20 01/28/20 01/28/20 08:50 11:10 11:51 WBC RBC Hgb Hct MCHC RDW Plt Count MCH Lymph % (Auto) Lymph # Lymph # (Auto) Seg Neutrophils % Seg Neuts % (Manual) Lymphocytes % (Manual) Seg Neutrophils # Seg Neutrophils # Man Nucleated RBC % Lymphocytes # (Manual) Monocytes # (Manual) PT INR Heparin Anti-Xa Level 0.74 H POC ABG pO2 67.2 L ABG pH POC ABG pCO2 ABG Hemoglobin 9.3 L ABG Oxyhemoglobin ABG pO2 ABG HCO3 ABG O2 Saturation ABG Base Excess ABG Potassium ABG Chloride ABG Glucose Oxyhemoglobin Sodium Potassium Chloride Carbon Dioxide BUN Creatinine Glucose POC Glucose 160 H Lactic Acid Calcium AST Phosphorus Total Protein Albumin C-Reactive Protein Arterial Blood Glucose Arterial Blood Ionized Calcium Urine WBC (Auto) Crossmatch 01/28/20 01/28/20 01/29/20 17:19 23:53 03:52 WBC RBC Hgb Hct MCHC RDW Plt Count MCH Lymph % (Auto) Lymph # Lymph # (Auto) Seg Neutrophils % Seg Neuts % (Manual) Lymphocytes % (Manual) Seg Neutrophils # Seg Neutrophils # Man Nucleated RBC % Lymphocytes # (Manual) Monocytes # (Manual) PT INR Heparin Anti-Xa Level POC ABG pO2 ABG pH 7.510 H POC ABG pCO2 ABG Hemoglobin 7.3 L ABG Oxyhemoglobin ABG pO2 357.0 H ABG HCO3 19.6 L ABG O2 Saturation 99.6 H ABG Base Excess -2.9 L ABG Potassium ABG Chloride ABG Glucose Oxyhemoglobin Sodium Potassium Chloride Carbon Dioxide BUN Creatinine Glucose POC Glucose 177 H 142 H Lactic Acid Calcium AST Phosphorus Total Protein Albumin C-Reactive Protein Arterial Blood Glucose Arterial Blood Ionized Calcium Urine WBC (Auto) Crossmatch 01/29/20 01/29/20 01/29/20 04:58 04:58 06:01 WBC 13.1 H RBC 2.75 L Hgb 8.6 L Hct 25.6 L MCHC RDW 17.7 H Plt Count MCH Lymph % (Auto) Lymph # Lymph # (Auto) Seg Neutrophils % Seg Neuts % (Manual) 91.0 H Lymphocytes % (Manual) 6.0 L Seg Neutrophils # Seg Neutrophils # Man 11.9 H Nucleated RBC % 1.0 H Lymphocytes # (Manual) 0.8 L Monocytes # (Manual) PT INR Heparin Anti-Xa Level POC ABG pO2 ABG pH POC ABG pCO2 ABG Hemoglobin ABG Oxyhemoglobin ABG pO2 ABG HCO3 ABG O2 Saturation ABG Base Excess ABG Potassium ABG Chloride ABG Glucose Oxyhemoglobin Sodium 148 H Potassium 3.5 L D Chloride 113.2 H Carbon Dioxide 21 L BUN 20 H Creatinine Glucose 137 H POC Glucose 167 H Lactic Acid Calcium 8.1 L AST Phosphorus Total Protein Albumin C-Reactive Protein Arterial Blood Glucose Arterial Blood Ionized Calcium Urine WBC (Auto) Crossmatch 01/29/20 01/29/20 01/29/20 11:45 17:52 23:49 WBC RBC Hgb Hct MCHC RDW Plt Count MCH Lymph % (Auto) Lymph # Lymph # (Auto) Seg Neutrophils % Seg Neuts % (Manual) Lymphocytes % (Manual) Seg Neutrophils # Seg Neutrophils # Man Nucleated RBC % Lymphocytes # (Manual) Monocytes # (Manual) PT INR Heparin Anti-Xa Level POC ABG pO2 ABG pH POC ABG pCO2 ABG Hemoglobin ABG Oxyhemoglobin ABG pO2 ABG HCO3 ABG O2 Saturation ABG Base Excess ABG Potassium ABG Chloride ABG Glucose Oxyhemoglobin Sodium Potassium Chloride Carbon Dioxide BUN Creatinine Glucose POC Glucose 185 H 226 H 141 H Lactic Acid Calcium AST Phosphorus Total Protein Albumin C-Reactive Protein Arterial Blood Glucose Arterial Blood Ionized Calcium Urine WBC (Auto) Crossmatch 01/29/20 01/30/20 01/30/20 Unknown 03:24 04:00 WBC RBC Hgb 7.8 L Hct 23.5 L MCHC RDW Plt Count MCH Lymph % (Auto) Lymph # Lymph # (Auto) Seg Neutrophils % Seg Neuts % (Manual) Lymphocytes % (Manual) Seg Neutrophils # Seg Neutrophils # Man Nucleated RBC % Lymphocytes # (Manual) Monocytes # (Manual) PT INR Heparin Anti-Xa Level POC ABG pO2 ABG pH 7.485 H POC ABG pCO2 ABG Hemoglobin 6.7 L ABG Oxyhemoglobin ABG pO2 102.0 H ABG HCO3 ABG O2 Saturation ABG Base Excess ABG Potassium ABG Chloride ABG Glucose Oxyhemoglobin Sodium Potassium Chloride Carbon Dioxide BUN Creatinine Glucose POC Glucose Lactic Acid Calcium AST Phosphorus Total Protein Albumin C-Reactive Protein 14.80 H Arterial Blood Glucose Arterial Blood Ionized Calcium Urine WBC (Auto) Crossmatch 01/30/20 01/30/20 01/30/20 05:50 11:15 17:07 WBC RBC Hgb Hct MCHC RDW Plt Count MCH Lymph % (Auto) Lymph # Lymph # (Auto) Seg Neutrophils % Seg Neuts % (Manual) Lymphocytes % (Manual) Seg Neutrophils # Seg Neutrophils # Man Nucleated RBC % Lymphocytes # (Manual) Monocytes # (Manual) PT INR Heparin Anti-Xa Level POC ABG pO2 ABG pH POC ABG pCO2 ABG Hemoglobin ABG Oxyhemoglobin ABG pO2 ABG HCO3 ABG O2 Saturation ABG Base Excess ABG Potassium ABG Chloride ABG Glucose Oxyhemoglobin Sodium Potassium Chloride Carbon Dioxide BUN Creatinine Glucose POC Glucose 122 H 207 H 124 H Lactic Acid Calcium AST Phosphorus Total Protein Albumin C-Reactive Protein Arterial Blood Glucose Arterial Blood Ionized Calcium Urine WBC (Auto) Crossmatch 01/30/20 01/31/20 01/31/20 17:08 00:10 04:52 WBC RBC Hgb Hct MCHC RDW Plt Count MCH Lymph % (Auto) Lymph # Lymph # (Auto) Seg Neutrophils % Seg Neuts % (Manual) Lymphocytes % (Manual) Seg Neutrophils # Seg Neutrophils # Man Nucleated RBC % Lymphocytes # (Manual) Monocytes # (Manual) PT INR Heparin Anti-Xa Level POC ABG pO2 ABG pH 7.504 H 7.486 H POC ABG pCO2 ABG Hemoglobin 7.4 L 6.2 L ABG Oxyhemoglobin ABG pO2 169.2 H 121.7 H ABG HCO3 27.1 H ABG O2 Saturation 99.1 H ABG Base Excess 3.4 H ABG Potassium ABG Chloride ABG Glucose Oxyhemoglobin Sodium Potassium Chloride Carbon Dioxide BUN Creatinine Glucose POC Glucose 191 H Lactic Acid Calcium AST Phosphorus Total Protein Albumin C-Reactive Protein Arterial Blood Glucose Arterial Blood Ionized Calcium Urine WBC (Auto) Crossmatch 01/31/20 01/31/20 01/31/20 05:37 11:59 12:40 WBC RBC 2.41 L Hgb 7.5 L Hct 22.3 L MCHC RDW 22.2 H Plt Count MCH Lymph % (Auto) Lymph # Lymph # (Auto) Seg Neutrophils % Seg Neuts % (Manual) 94.0 H Lymphocytes % (Manual) 2.0 L Seg Neutrophils # Seg Neutrophils # Man 9.4 H Nucleated RBC % Lymphocytes # (Manual) 0.2 L Monocytes # (Manual) PT INR Heparin Anti-Xa Level POC ABG pO2 ABG pH POC ABG pCO2 ABG Hemoglobin ABG Oxyhemoglobin ABG pO2 ABG HCO3 ABG O2 Saturation ABG Base Excess ABG Potassium ABG Chloride ABG Glucose Oxyhemoglobin Sodium Potassium Chloride Carbon Dioxide BUN Creatinine Glucose POC Glucose 175 H 220 H Lactic Acid Calcium AST Phosphorus Total Protein Albumin C-Reactive Protein Arterial Blood Glucose Arterial Blood Ionized Calcium Urine WBC (Auto) Crossmatch 01/31/20 01/31/20 01/31/20 12:40 14:40 18:18 WBC RBC Hgb Hct MCHC RDW Plt Count MCH Lymph % (Auto) Lymph # Lymph # (Auto) Seg Neutrophils % Seg Neuts % (Manual) Lymphocytes % (Manual) Seg Neutrophils # Seg Neutrophils # Man Nucleated RBC % Lymphocytes # (Manual) Monocytes # (Manual) PT INR Heparin Anti-Xa Level POC ABG pO2 124.7 H ABG pH 7.542 H POC ABG pCO2 ABG Hemoglobin 7.8 L ABG Oxyhemoglobin ABG pO2 ABG HCO3 ABG O2 Saturation ABG Base Excess ABG Potassium ABG Chloride ABG Glucose Oxyhemoglobin Sodium 151 H Potassium 2.1 L* D Chloride 108.9 H Carbon Dioxide BUN 22 H Creatinine Glucose 194 H POC Glucose 181 H Lactic Acid Calcium 8.1 L AST Phosphorus Total Protein 4.8 L Albumin 2.3 L C-Reactive Protein Arterial Blood Glucose Arterial Blood Ionized Calcium Urine WBC (Auto) Crossmatch 02/01/20 02/01/20 02/01/20 00:11 03:14 04:32 WBC 11.9 H RBC 2.47 L Hgb 7.6 L Hct 22.8 L MCHC RDW 22.7 H Plt Count MCH Lymph % (Auto) Lymph # Lymph # (Auto) Seg Neutrophils % Seg Neuts % (Manual) 90.0 H Lymphocytes % (Manual) 5.0 L Seg Neutrophils # Seg Neutrophils # Man 10.7 H Nucleated RBC % Lymphocytes # (Manual) 0.6 L Monocytes # (Manual) PT INR Heparin Anti-Xa Level POC ABG pO2 ABG pH 7.564 H POC ABG pCO2 ABG Hemoglobin 7.6 L ABG Oxyhemoglobin ABG pO2 124.1 H ABG HCO3 29.6 H ABG O2 Saturation ABG Base Excess 7.0 H ABG Potassium ABG Chloride ABG Glucose Oxyhemoglobin Sodium Potassium Chloride Carbon Dioxide BUN Creatinine Glucose POC Glucose 190 H Lactic Acid Calcium AST Phosphorus Total Protein Albumin C-Reactive Protein Arterial Blood Glucose Arterial Blood Ionized Calcium Urine WBC (Auto) Crossmatch 02/01/20 02/01/20 02/01/20 04:32 05:28 11:56 WBC RBC Hgb Hct MCHC RDW Plt Count MCH Lymph % (Auto) Lymph # Lymph # (Auto) Seg Neutrophils % Seg Neuts % (Manual) Lymphocytes % (Manual) Seg Neutrophils # Seg Neutrophils # Man Nucleated RBC % Lymphocytes # (Manual) Monocytes # (Manual) PT INR Heparin Anti-Xa Level POC ABG pO2 ABG pH POC ABG pCO2 ABG Hemoglobin ABG Oxyhemoglobin ABG pO2 ABG HCO3 ABG O2 Saturation ABG Base Excess ABG Potassium ABG Chloride ABG Glucose Oxyhemoglobin Sodium 149 H Potassium 2.6 L* D Chloride Carbon Dioxide 33 H BUN 23 H Creatinine 0.5 L Glucose 174 H POC Glucose 187 H 195 H Lactic Acid Calcium 8.0 L AST Phosphorus 1.60 L Total Protein Albumin C-Reactive Protein Arterial Blood Glucose Arterial Blood Ionized Calcium Urine WBC (Auto) Crossmatch 02/01/20 02/01/20 02/02/20 18:15 23:35 04:33 WBC RBC Hgb Hct MCHC RDW Plt Count MCH Lymph % (Auto) Lymph # Lymph # (Auto) Seg Neutrophils % Seg Neuts % (Manual) Lymphocytes % (Manual) Seg Neutrophils # Seg Neutrophils # Man Nucleated RBC % Lymphocytes # (Manual) Monocytes # (Manual) PT INR Heparin Anti-Xa Level POC ABG pO2 ABG pH 7.549 H POC ABG pCO2 ABG Hemoglobin 9.8 L ABG Oxyhemoglobin ABG pO2 ABG HCO3 ABG O2 Saturation ABG Base Excess ABG Potassium ABG Chloride ABG Glucose Oxyhemoglobin Sodium Potassium Chloride Carbon Dioxide BUN Creatinine Glucose POC Glucose 226 H 252 H Lactic Acid Calcium AST Phosphorus Total Protein Albumin C-Reactive Protein Arterial Blood Glucose Arterial Blood Ionized Calcium Urine WBC (Auto) Crossmatch 02/02/20 02/02/20 02/02/20 05:25 05:25 05:40 WBC 15.5 H RBC 2.43 L Hgb 7.6 L Hct 22.9 L MCHC RDW 23.6 H Plt Count MCH Lymph % (Auto) Lymph # Lymph # (Auto) Seg Neutrophils % Seg Neuts % (Manual) 89.0 H Lymphocytes % (Manual) 3.0 L Seg Neutrophils # Seg Neutrophils # Man 13.8 H Nucleated RBC % Lymphocytes # (Manual) 0.5 L Monocytes # (Manual) 0.9 H PT INR Heparin Anti-Xa Level POC ABG pO2 ABG pH POC ABG pCO2 ABG Hemoglobin ABG Oxyhemoglobin ABG pO2 ABG HCO3 ABG O2 Saturation ABG Base Excess ABG Potassium ABG Chloride ABG Glucose Oxyhemoglobin Sodium Potassium 2.6 L* Chloride Carbon Dioxide 33 H BUN 26 H Creatinine Glucose 175 H POC Glucose 181 H Lactic Acid Calcium 7.9 L AST Phosphorus Total Protein Albumin C-Reactive Protein Arterial Blood Glucose Arterial Blood Ionized Calcium Urine WBC (Auto) Crossmatch 02/02/20 02/02/20 02/02/20 11:55 14:45 17:18 WBC RBC Hgb Hct MCHC RDW Plt Count MCH Lymph % (Auto) Lymph # Lymph # (Auto) Seg Neutrophils % Seg Neuts % (Manual) Lymphocytes % (Manual) Seg Neutrophils # Seg Neutrophils # Man Nucleated RBC % Lymphocytes # (Manual) Monocytes # (Manual) PT INR Heparin Anti-Xa Level POC ABG pO2 ABG pH 7.56 H POC ABG pCO2 ABG Hemoglobin 7.6 L ABG Oxyhemoglobin ABG pO2 ABG HCO3 ABG O2 Saturation ABG Base Excess ABG Potassium ABG Chloride ABG Glucose Oxyhemoglobin Sodium Potassium Chloride Carbon Dioxide BUN Creatinine Glucose POC Glucose 226 H 227 H Lactic Acid Calcium AST Phosphorus Total Protein Albumin C-Reactive Protein Arterial Blood Glucose Arterial Blood Ionized Calcium Urine WBC (Auto) Crossmatch 02/02/20 02/03/20 02/03/20 20:54 00:02 05:14 WBC 18.7 H RBC 2.45 L Hgb 7.6 L Hct 23.2 L MCHC RDW 23.5 H Plt Count MCH Lymph % (Auto) Lymph # Lymph # (Auto) Seg Neutrophils % Seg Neuts % (Manual) 94.0 H Lymphocytes % (Manual) 3.0 L Seg Neutrophils # Seg Neutrophils # Man 17.6 H Nucleated RBC % Lymphocytes # (Manual) 0.6 L Monocytes # (Manual) PT INR Heparin Anti-Xa Level POC ABG pO2 ABG pH POC ABG pCO2 ABG Hemoglobin ABG Oxyhemoglobin ABG pO2 ABG HCO3 ABG O2 Saturation ABG Base Excess ABG Potassium ABG Chloride ABG Glucose Oxyhemoglobin Sodium Potassium 3.2 L D Chloride Carbon Dioxide BUN Creatinine Glucose POC Glucose 204 H Lactic Acid Calcium AST Phosphorus Total Protein Albumin C-Reactive Protein Arterial Blood Glucose Arterial Blood Ionized Calcium Urine WBC (Auto) Crossmatch 02/03/20 02/03/20 02/03/20 05:14 05:14 05:20 WBC RBC Hgb Hct MCHC RDW Plt Count MCH Lymph % (Auto) Lymph # Lymph # (Auto) Seg Neutrophils % Seg Neuts % (Manual) Lymphocytes % (Manual) Seg Neutrophils # Seg Neutrophils # Man Nucleated RBC % Lymphocytes # (Manual) Monocytes # (Manual) PT INR Heparin Anti-Xa Level POC ABG pO2 ABG pH POC ABG pCO2 ABG Hemoglobin ABG Oxyhemoglobin ABG pO2 ABG HCO3 ABG O2 Saturation ABG Base Excess ABG Potassium ABG Chloride ABG Glucose Oxyhemoglobin Sodium Potassium 3.1 L Chloride Carbon Dioxide 33 H BUN 29 H Creatinine 0.5 L Glucose 160 H POC Glucose 146 H Lactic Acid Calcium 7.9 L AST Phosphorus 2.30 L Total Protein 4.8 L Albumin 2.4 L C-Reactive Protein Arterial Blood Glucose Arterial Blood Ionized Calcium Urine WBC (Auto) Crossmatch 02/03/20 02/03/20 02/03/20 12:35 18:14 23:26 WBC RBC Hgb Hct MCHC RDW Plt Count MCH Lymph % (Auto) Lymph # Lymph # (Auto) Seg Neutrophils % Seg Neuts % (Manual) Lymphocytes % (Manual) Seg Neutrophils # Seg Neutrophils # Man Nucleated RBC % Lymphocytes # (Manual) Monocytes # (Manual) PT INR Heparin Anti-Xa Level POC ABG pO2 ABG pH POC ABG pCO2 ABG Hemoglobin ABG Oxyhemoglobin ABG pO2 ABG HCO3 ABG O2 Saturation ABG Base Excess ABG Potassium ABG Chloride ABG Glucose Oxyhemoglobin Sodium Potassium Chloride Carbon Dioxide BUN Creatinine Glucose POC Glucose 219 H 248 H 173 H Lactic Acid Calcium AST Phosphorus Total Protein Albumin C-Reactive Protein Arterial Blood Glucose Arterial Blood Ionized Calcium Urine WBC (Auto) Crossmatch 02/04/20 02/04/20 02/04/20 05:34 05:36 06:51 WBC RBC Hgb Hct MCHC RDW Plt Count MCH Lymph % (Auto) Lymph # Lymph # (Auto) Seg Neutrophils % Seg Neuts % (Manual) Lymphocytes % (Manual) Seg Neutrophils # Seg Neutrophils # Man Nucleated RBC % Lymphocytes # (Manual) Monocytes # (Manual) PT INR Heparin Anti-Xa Level POC ABG pO2 ABG pH POC ABG pCO2 ABG Hemoglobin ABG Oxyhemoglobin ABG pO2 ABG HCO3 ABG O2 Saturation ABG Base Excess ABG Potassium ABG Chloride ABG Glucose Oxyhemoglobin Sodium Potassium Chloride Carbon Dioxide BUN Creatinine Glucose POC Glucose 56 L 64 L 127 H Lactic Acid Calcium AST Phosphorus Total Protein Albumin C-Reactive Protein Arterial Blood Glucose Arterial Blood Ionized Calcium Urine WBC (Auto) Crossmatch 02/04/20 02/04/20 02/04/20 11:57 13:42 13:53 WBC 19.2 H RBC 2.48 L Hgb 7.8 L Hct 23.5 L MCHC RDW 24.2 H Plt Count MCH Lymph % (Auto) Lymph # Lymph # (Auto) Seg Neutrophils % Seg Neuts % (Manual) 97.0 H Lymphocytes % (Manual) 2.0 L Seg Neutrophils # Seg Neutrophils # Man 18.6 H Nucleated RBC % Lymphocytes # (Manual) 0.4 L Monocytes # (Manual) PT INR Heparin Anti-Xa Level POC ABG pO2 118.2 H ABG pH 7.525 H POC ABG pCO2 ABG Hemoglobin 8.7 L ABG Oxyhemoglobin ABG pO2 ABG HCO3 ABG O2 Saturation ABG Base Excess ABG Potassium 2.8 L ABG Chloride ABG Glucose 185 H Oxyhemoglobin Sodium Potassium Chloride Carbon Dioxide BUN Creatinine Glucose POC Glucose 224 H Lactic Acid Calcium AST Phosphorus Total Protein Albumin C-Reactive Protein Arterial Blood Glucose 185 H Arterial Blood Ionized Calcium 4.5 L Urine WBC (Auto) Crossmatch 02/04/20 02/04/20 02/04/20 13:53 18:15 23:35 WBC RBC Hgb Hct MCHC RDW Plt Count MCH Lymph % (Auto) Lymph # Lymph # (Auto) Seg Neutrophils % Seg Neuts % (Manual) Lymphocytes % (Manual) Seg Neutrophils # Seg Neutrophils # Man Nucleated RBC % Lymphocytes # (Manual) Monocytes # (Manual) PT INR Heparin Anti-Xa Level POC ABG pO2 ABG pH POC ABG pCO2 ABG Hemoglobin ABG Oxyhemoglobin ABG pO2 ABG HCO3 ABG O2 Saturation ABG Base Excess ABG Potassium ABG Chloride ABG Glucose Oxyhemoglobin Sodium 147 H Potassium 2.8 L* Chloride Carbon Dioxide 38 H BUN 33 H Creatinine 0.5 L Glucose 202 H POC Glucose 215 H 197 H Lactic Acid Calcium AST Phosphorus Total Protein Albumin C-Reactive Protein Arterial Blood Glucose Arterial Blood Ionized Calcium Urine WBC (Auto) Crossmatch 02/05/20 02/05/20 02/05/20 01:03 04:00 04:00 WBC 26.7 H RBC 2.59 L Hgb 8.1 L Hct 24.6 L MCHC RDW 24.1 H Plt Count MCH Lymph % (Auto) 1.6 L Lymph # Lymph # (Auto) 0.4 L Seg Neutrophils % Seg Neuts % (Manual) Lymphocytes % (Manual) Seg Neutrophils # 25.9 H Seg Neutrophils # Man Nucleated RBC % Lymphocytes # (Manual) Monocytes # (Manual) PT INR Heparin Anti-Xa Level POC ABG pO2 ABG pH POC ABG pCO2 ABG Hemoglobin 7.1 L ABG Oxyhemoglobin ABG pO2 50.7 L ABG HCO3 29.6 H ABG O2 Saturation 82.7 L ABG Base Excess 4.8 H ABG Potassium ABG Chloride ABG Glucose Oxyhemoglobin 81.0 L Sodium 146 H Potassium Chloride Carbon Dioxide 32 H BUN 35 H Creatinine 0.5 L Glucose 226 H POC Glucose Lactic Acid Calcium AST Phosphorus Total Protein 5.1 L Albumin 2.2 L C-Reactive Protein Arterial Blood Glucose Arterial Blood Ionized Calcium Urine WBC (Auto) Crossmatch 02/05/20 02/05/20 02/06/20 05:32 17:56 00:19 WBC RBC Hgb Hct MCHC RDW Plt Count MCH Lymph % (Auto) Lymph # Lymph # (Auto) Seg Neutrophils % Seg Neuts % (Manual) Lymphocytes % (Manual) Seg Neutrophils # Seg Neutrophils # Man Nucleated RBC % Lymphocytes # (Manual) Monocytes # (Manual) PT INR Heparin Anti-Xa Level POC ABG pO2 ABG pH POC ABG pCO2 ABG Hemoglobin ABG Oxyhemoglobin ABG pO2 ABG HCO3 ABG O2 Saturation ABG Base Excess ABG Potassium ABG Chloride ABG Glucose Oxyhemoglobin Sodium Potassium Chloride Carbon Dioxide BUN Creatinine Glucose POC Glucose 239 H 175 H 309 H Lactic Acid Calcium AST Phosphorus Total Protein Albumin C-Reactive Protein Arterial Blood Glucose Arterial Blood Ionized Calcium Urine WBC (Auto) Crossmatch 02/06/20 02/06/20 02/06/20 04:26 04:27 05:11 WBC RBC Hgb Hct MCHC RDW Plt Count MCH Lymph % (Auto) Lymph # Lymph # (Auto) Seg Neutrophils % Seg Neuts % (Manual) Lymphocytes % (Manual) Seg Neutrophils # Seg Neutrophils # Man Nucleated RBC % Lymphocytes # (Manual) Monocytes # (Manual) PT INR Heparin Anti-Xa Level POC ABG pO2 175.3 H 157.2 H ABG pH 7.502 H 7.551 H POC ABG pCO2 ABG Hemoglobin 10.8 L 7.3 L ABG Oxyhemoglobin 98.3 H ABG pO2 ABG HCO3 ABG O2 Saturation ABG Base Excess ABG Potassium 3.3 L ABG Chloride 109.0 H ABG Glucose 148 H Oxyhemoglobin Sodium 148 H Potassium 3.0 L Chloride 107.3 H Carbon Dioxide 33 H BUN 33 H Creatinine 0.5 L Glucose 283 H POC Glucose Lactic Acid Calcium 7.9 L AST Phosphorus Total Protein 3.6 L D Albumin 1.2 L C-Reactive Protein Arterial Blood Glucose 148 H Arterial Blood Ionized Calcium Urine WBC (Auto) Crossmatch 02/06/20 02/06/20 02/06/20 05:40 08:45 11:52 WBC 16.3 H RBC 2.12 L Hgb 6.6 L Hct 20.3 L MCHC RDW 24.4 H Plt Count MCH Lymph % (Auto) Lymph # Lymph # (Auto) Seg Neutrophils % Seg Neuts % (Manual) 98.0 H Lymphocytes % (Manual) 1.0 L Seg Neutrophils # Seg Neutrophils # Man 16.0 H Nucleated RBC % Lymphocytes # (Manual) 0.2 L Monocytes # (Manual) PT INR Heparin Anti-Xa Level POC ABG pO2 ABG pH POC ABG pCO2 ABG Hemoglobin ABG Oxyhemoglobin ABG pO2 ABG HCO3 ABG O2 Saturation ABG Base Excess ABG Potassium ABG Chloride ABG Glucose Oxyhemoglobin Sodium Potassium Chloride Carbon Dioxide BUN Creatinine Glucose POC Glucose 347 H 132 H Lactic Acid Calcium AST Phosphorus Total Protein Albumin C-Reactive Protein Arterial Blood Glucose Arterial Blood Ionized Calcium Urine WBC (Auto) Crossmatch 02/06/20 02/07/20 02/07/20 18:26 00:08 05:41 WBC RBC Hgb Hct MCHC RDW Plt Count MCH Lymph % (Auto) Lymph # Lymph # (Auto) Seg Neutrophils % Seg Neuts % (Manual) Lymphocytes % (Manual) Seg Neutrophils # Seg Neutrophils # Man Nucleated RBC % Lymphocytes # (Manual) Monocytes # (Manual) PT INR Heparin Anti-Xa Level POC ABG pO2 ABG pH POC ABG pCO2 ABG Hemoglobin ABG Oxyhemoglobin ABG pO2 ABG HCO3 ABG O2 Saturation ABG Base Excess ABG Potassium ABG Chloride ABG Glucose Oxyhemoglobin Sodium Potassium Chloride Carbon Dioxide BUN Creatinine Glucose POC Glucose 114 H 111 H 164 H Lactic Acid Calcium AST Phosphorus Total Protein Albumin C-Reactive Protein Arterial Blood Glucose Arterial Blood Ionized Calcium Urine WBC (Auto) Crossmatch 02/07/20 02/07/20 02/07/20 11:49 17:56 23:27 WBC RBC Hgb Hct MCHC RDW Plt Count MCH Lymph % (Auto) Lymph # Lymph # (Auto) Seg Neutrophils % Seg Neuts % (Manual) Lymphocytes % (Manual) Seg Neutrophils # Seg Neutrophils # Man Nucleated RBC % Lymphocytes # (Manual) Monocytes # (Manual) PT INR Heparin Anti-Xa Level POC ABG pO2 ABG pH POC ABG pCO2 ABG Hemoglobin ABG Oxyhemoglobin ABG pO2 ABG HCO3 ABG O2 Saturation ABG Base Excess ABG Potassium ABG Chloride ABG Glucose Oxyhemoglobin Sodium Potassium Chloride Carbon Dioxide BUN Creatinine Glucose POC Glucose 146 H 140 H 164 H Lactic Acid Calcium AST Phosphorus Total Protein Albumin C-Reactive Protein Arterial Blood Glucose Arterial Blood Ionized Calcium Urine WBC (Auto) Crossmatch 02/08/20 02/08/20 02/08/20 03:55 04:46 04:46 WBC RBC 2.30 L Hgb 7.3 L Hct 22.0 L MCHC RDW 23.9 H Plt Count MCH Lymph % (Auto) 8.5 L Lymph # Lymph # (Auto) 0.8 L Seg Neutrophils % 87.6 H Seg Neuts % (Manual) Lymphocytes % (Manual) Seg Neutrophils # 8.7 H Seg Neutrophils # Man Nucleated RBC % Lymphocytes # (Manual) Monocytes # (Manual) PT INR Heparin Anti-Xa Level POC ABG pO2 112.8 H ABG pH 7.511 H POC ABG pCO2 51.2 H ABG Hemoglobin 7.8 L ABG Oxyhemoglobin ABG pO2 ABG HCO3 ABG O2 Saturation ABG Base Excess ABG Potassium ABG Chloride ABG Glucose Oxyhemoglobin Sodium Potassium 3.1 L Chloride Carbon Dioxide 31 H BUN 29 H Creatinine 0.3 L Glucose 108 H POC Glucose Lactic Acid Calcium AST Phosphorus Total Protein Albumin C-Reactive Protein Arterial Blood Glucose Arterial Blood Ionized Calcium Urine WBC (Auto) Crossmatch 02/08/20 02/08/20 02/08/20 05:31 10:15 12:10 WBC RBC Hgb Hct MCHC RDW Plt Count MCH Lymph % (Auto) Lymph # Lymph # (Auto) Seg Neutrophils % Seg Neuts % (Manual) Lymphocytes % (Manual) Seg Neutrophils # Seg Neutrophils # Man Nucleated RBC % Lymphocytes # (Manual) Monocytes # (Manual) PT INR Heparin Anti-Xa Level POC ABG pO2 ABG pH POC ABG pCO2 ABG Hemoglobin ABG Oxyhemoglobin ABG pO2 ABG HCO3 ABG O2 Saturation ABG Base Excess ABG Potassium ABG Chloride ABG Glucose Oxyhemoglobin Sodium Potassium Chloride Carbon Dioxide BUN Creatinine Glucose POC Glucose 117 H 164 H 170 H Lactic Acid Calcium AST Phosphorus Total Protein Albumin C-Reactive Protein Arterial Blood Glucose Arterial Blood Ionized Calcium Urine WBC (Auto) Crossmatch 02/08/20 02/08/20 02/09/20 12:23 23:50 03:04 WBC RBC Hgb Hct MCHC RDW Plt Count MCH Lymph % (Auto) Lymph # Lymph # (Auto) Seg Neutrophils % Seg Neuts % (Manual) Lymphocytes % (Manual) Seg Neutrophils # Seg Neutrophils # Man Nucleated RBC % Lymphocytes # (Manual) Monocytes # (Manual) PT INR Heparin Anti-Xa Level POC ABG pO2 ABG pH 7.501 H POC ABG pCO2 ABG Hemoglobin 7.5 L ABG Oxyhemoglobin ABG pO2 ABG HCO3 ABG O2 Saturation ABG Base Excess ABG Potassium ABG Chloride ABG Glucose 143 H Oxyhemoglobin Sodium Potassium Chloride Carbon Dioxide BUN Creatinine Glucose POC Glucose 164 H 126 H Lactic Acid Calcium AST Phosphorus Total Protein Albumin C-Reactive Protein Arterial Blood Glucose 143 H Arterial Blood Ionized Calcium Urine WBC (Auto) Crossmatch 02/09/20 02/09/20 02/09/20 05:57 08:00 12:39 WBC RBC Hgb Hct MCHC RDW Plt Count MCH Lymph % (Auto) Lymph # Lymph # (Auto) Seg Neutrophils % Seg Neuts % (Manual) Lymphocytes % (Manual) Seg Neutrophils # Seg Neutrophils # Man Nucleated RBC % Lymphocytes # (Manual) Monocytes # (Manual) PT INR Heparin Anti-Xa Level POC ABG pO2 ABG pH POC ABG pCO2 ABG Hemoglobin ABG Oxyhemoglobin ABG pO2 ABG HCO3 ABG O2 Saturation ABG Base Excess ABG Potassium ABG Chloride ABG Glucose Oxyhemoglobin Sodium Potassium 3.3 L Chloride Carbon Dioxide 34 H BUN 27 H Creatinine 0.4 L Glucose 127 H POC Glucose 160 H 154 H Lactic Acid Calcium 8.2 L AST Phosphorus Total Protein Albumin C-Reactive Protein Arterial Blood Glucose Arterial Blood Ionized Calcium Urine WBC (Auto) Crossmatch 02/09/20 02/09/20 02/09/20 18:17 23:43 Unknown WBC RBC 2.15 L Hgb 7.0 L Hct 20.8 L MCHC RDW 23.3 H Plt Count MCH 33 H Lymph % (Auto) Lymph # Lymph # (Auto) Seg Neutrophils % Seg Neuts % (Manual) Lymphocytes % (Manual) Seg Neutrophils # Seg Neutrophils # Man Nucleated RBC % Lymphocytes # (Manual) Monocytes # (Manual) PT INR Heparin Anti-Xa Level POC ABG pO2 ABG pH POC ABG pCO2 ABG Hemoglobin ABG Oxyhemoglobin ABG pO2 ABG HCO3 ABG O2 Saturation ABG Base Excess ABG Potassium ABG Chloride ABG Glucose Oxyhemoglobin Sodium Potassium Chloride Carbon Dioxide BUN Creatinine Glucose POC Glucose 152 H 177 H Lactic Acid Calcium AST Phosphorus Total Protein Albumin C-Reactive Protein Arterial Blood Glucose Arterial Blood Ionized Calcium Urine WBC (Auto) Crossmatch 02/10/20 02/10/20 02/10/20 04:38 05:24 11:44 WBC RBC Hgb Hct MCHC RDW Plt Count MCH Lymph % (Auto) Lymph # Lymph # (Auto) Seg Neutrophils % Seg Neuts % (Manual) Lymphocytes % (Manual) Seg Neutrophils # Seg Neutrophils # Man Nucleated RBC % Lymphocytes # (Manual) Monocytes # (Manual) PT INR Heparin Anti-Xa Level POC ABG pO2 ABG pH 7.502 H POC ABG pCO2 ABG Hemoglobin 6.2 L ABG Oxyhemoglobin ABG pO2 136.0 H ABG HCO3 29.3 H ABG O2 Saturation ABG Base Excess 5.7 H ABG Potassium ABG Chloride ABG Glucose Oxyhemoglobin Sodium Potassium Chloride Carbon Dioxide BUN Creatinine Glucose POC Glucose 113 H 176 H Lactic Acid Calcium AST Phosphorus Total Protein Albumin C-Reactive Protein Arterial Blood Glucose Arterial Blood Ionized Calcium Urine WBC (Auto) Crossmatch 02/10/20 02/11/20 02/11/20 23:42 03:43 04:12 WBC RBC 2.12 L Hgb 6.9 L Hct 20.6 L MCHC RDW 23.4 H Plt Count MCH 33 H Lymph % (Auto) Lymph # Lymph # (Auto) Seg Neutrophils % 84.7 H Seg Neuts % (Manual) 83.0 H Lymphocytes % (Manual) 11.0 L Seg Neutrophils # Seg Neutrophils # Man Nucleated RBC % Lymphocytes # (Manual) 1.0 L Monocytes # (Manual) PT INR Heparin Anti-Xa Level POC ABG pO2 112.6 H ABG pH 7.480 H POC ABG pCO2 ABG Hemoglobin 7.2 L ABG Oxyhemoglobin ABG pO2 ABG HCO3 ABG O2 Saturation ABG Base Excess ABG Potassium ABG Chloride ABG Glucose 154 H Oxyhemoglobin Sodium Potassium Chloride Carbon Dioxide BUN Creatinine Glucose POC Glucose 149 H Lactic Acid Calcium AST Phosphorus Total Protein Albumin C-Reactive Protein Arterial Blood Glucose 154 H Arterial Blood Ionized Calcium Urine WBC (Auto) Crossmatch 02/11/20 02/11/20 02/11/20 04:12 05:50 08:22 WBC RBC Hgb Hct MCHC RDW Plt Count MCH Lymph % (Auto) Lymph # Lymph # (Auto) Seg Neutrophils % Seg Neuts % (Manual) Lymphocytes % (Manual) Seg Neutrophils # Seg Neutrophils # Man Nucleated RBC % Lymphocytes # (Manual) Monocytes # (Manual) PT INR Heparin Anti-Xa Level POC ABG pO2 ABG pH POC ABG pCO2 ABG Hemoglobin ABG Oxyhemoglobin ABG pO2 ABG HCO3 ABG O2 Saturation ABG Base Excess ABG Potassium ABG Chloride ABG Glucose Oxyhemoglobin Sodium 146 H Potassium Chloride Carbon Dioxide BUN 24 H Creatinine 0.4 L Glucose 168 H POC Glucose 190 H Lactic Acid Calcium 8.0 L AST Phosphorus Total Protein Albumin C-Reactive Protein Arterial Blood Glucose Arterial Blood Ionized Calcium Urine WBC (Auto) Crossmatch See Detail 02/11/20 02/11/20 02/11/20 11:41 17:33 23:40 WBC RBC Hgb Hct MCHC RDW Plt Count MCH Lymph % (Auto) Lymph # Lymph # (Auto) Seg Neutrophils % Seg Neuts % (Manual) Lymphocytes % (Manual) Seg Neutrophils # Seg Neutrophils # Man Nucleated RBC % Lymphocytes # (Manual) Monocytes # (Manual) PT INR Heparin Anti-Xa Level POC ABG pO2 ABG pH POC ABG pCO2 ABG Hemoglobin ABG Oxyhemoglobin ABG pO2 ABG HCO3 ABG O2 Saturation ABG Base Excess ABG Potassium ABG Chloride ABG Glucose Oxyhemoglobin Sodium Potassium Chloride Carbon Dioxide BUN Creatinine Glucose POC Glucose 260 H 132 H 54 L Lactic Acid Calcium AST Phosphorus Total Protein Albumin C-Reactive Protein Arterial Blood Glucose Arterial Blood Ionized Calcium Urine WBC (Auto) Crossmatch 02/12/20 02/12/20 02/12/20 05:16 06:45 11:48 WBC RBC Hgb 8.6 L Hct 25.2 L MCHC RDW Plt Count MCH Lymph % (Auto) Lymph # Lymph # (Auto) Seg Neutrophils % Seg Neuts % (Manual) Lymphocytes % (Manual) Seg Neutrophils # Seg Neutrophils # Man Nucleated RBC % Lymphocytes # (Manual) Monocytes # (Manual) PT INR Heparin Anti-Xa Level POC ABG pO2 ABG pH POC ABG pCO2 ABG Hemoglobin ABG Oxyhemoglobin ABG pO2 ABG HCO3 ABG O2 Saturation ABG Base Excess ABG Potassium ABG Chloride ABG Glucose Oxyhemoglobin Sodium Potassium Chloride Carbon Dioxide BUN Creatinine Glucose POC Glucose 127 H 163 H Lactic Acid Calcium AST Phosphorus Total Protein Albumin C-Reactive Protein Arterial Blood Glucose Arterial Blood Ionized Calcium Urine WBC (Auto) Crossmatch 02/12/20 02/12/20 02/13/20 17:25 23:53 04:30 WBC RBC Hgb Hct MCHC RDW Plt Count MCH Lymph % (Auto) Lymph # Lymph # (Auto) Seg Neutrophils % Seg Neuts % (Manual) Lymphocytes % (Manual) Seg Neutrophils # Seg Neutrophils # Man Nucleated RBC % Lymphocytes # (Manual) Monocytes # (Manual) PT INR Heparin Anti-Xa Level POC ABG pO2 ABG pH 7.463 H POC ABG pCO2 ABG Hemoglobin ABG Oxyhemoglobin ABG pO2 98.4 H ABG HCO3 27.7 H ABG O2 Saturation ABG Base Excess 3.7 H ABG Potassium ABG Chloride ABG Glucose Oxyhemoglobin Sodium Potassium Chloride Carbon Dioxide BUN Creatinine Glucose POC Glucose 152 H 140 H Lactic Acid Calcium AST Phosphorus Total Protein Albumin C-Reactive Protein Arterial Blood Glucose Arterial Blood Ionized Calcium Urine WBC (Auto) Crossmatch 02/13/20 02/13/20 02/13/20 04:45 04:45 05:19 WBC RBC 2.73 L Hgb 8.7 L Hct 25.6 L MCHC RDW 21.3 H Plt Count MCH Lymph % (Auto) 12.0 L Lymph # Lymph # (Auto) 1.0 L Seg Neutrophils % 82.5 H Seg Neuts % (Manual) Lymphocytes % (Manual) Seg Neutrophils # Seg Neutrophils # Man Nucleated RBC % Lymphocytes # (Manual) Monocytes # (Manual) PT INR Heparin Anti-Xa Level POC ABG pO2 ABG pH POC ABG pCO2 ABG Hemoglobin ABG Oxyhemoglobin ABG pO2 ABG HCO3 ABG O2 Saturation ABG Base Excess ABG Potassium ABG Chloride ABG Glucose Oxyhemoglobin Sodium Potassium 3.4 L Chloride Carbon Dioxide 31 H BUN 24 H Creatinine 0.3 L Glucose 122 H POC Glucose 127 H Lactic Acid Calcium 8.0 L AST Phosphorus Total Protein 4.2 L Albumin 2.0 L C-Reactive Protein Arterial Blood Glucose Arterial Blood Ionized Calcium Urine WBC (Auto) Crossmatch Allied health notes reviewed: nursing
[2020-02-13] MEDS ORDERED: ROCURONIUM 50 MG/5 ML INJ IV ONE (11:51)
--- NOTE | 2020-02-13 12:19 | Operative Report ---
Operative Report Operative Report: Date of surgery: 02/13/2020 Preoperative diagnosis: Vent dependence Postoperative diagnosis: Same as above Procedure: Percutaneous tracheostomy Surgeon: Han Olivares DO Anesthesia: Geta, local Findings: Good placement of tracheostomy as visualized by fiberoptic bronchoscopy EBL: LESS than 5 cc Specimen: None Complications: None Disposition: Stable to ICU HPI and indication: Patient is a 69-year-old female who is had a protracted hospital course and has been admitted since 01/08/2020 for altered mental status, hypotension. Patient is being treated for sepsis and subsequently suffered a CODE BLUE on 01/28/2020 after which she was intubated. The patient was able to be extubated however had a respiratory arrest on 02/04 and was reintubated. As she cannot be safely weaned from the ventilator, a tracheostomy was requested by the tin container straightener. All risk, benefits, alternatives to the procedure were discussed with the patient's Joel Garcia and questions answered. Consent obtained for tracheostomy. Procedure in detail: The patient was identified in the ICU and brought down to the operating room and positioned in supine position in the hospital bed. Consent was verified on the chart timeout was performed. The neck was prepped and draped in usual sterile fashion. Anesthesia was administered. A shoulder roll was placed, with the patient's neck mildly hyperextended.. Anesthesia provider performed fiberoptic bronchoscopy throughout the entire procedure. The fiberoptic bronchoscope was inserted through the endotracheal tube via the adapter and the trachea examined. The trachea was unremarkable and the 7.5 ET tube was approximately 3 cm from jennifer at 24 cm at the lip. 1% lidocaine was infiltrated into the skin and subcutaneous tissue approximately 2 fingerbreadths above the jennifer. A 2 cm incision was made in a horizontal fashion using a 15 blade. Using a hemostat the soft tissues were bluntly dissected until the trachea was encountered. The ET tube was then pulled back slowly to 16 cm. Using the introducer needle, the trachea was entered under direct visualization. The wire was passed down the trachea towards the jennifer. Introducer needle was then removed. The trachea was then serially dilated, after which a 8 [place] tracheostomy tube was inserted. The balloon was visualized via fiberoptic bronchoscopy. The balloon was inflated, patient placed back on ventilator. There was end-tidal CO2 detected and tidal volumes assessed which were satisfactory. The bronchoscope was then placed through the tracheostomy and showed good positioning of the tracheostomy approximately 4 to 5 cm above the jennifer and no bleeding. A drain sponge was placed between the skin and tracheostomy. The tracheostomy was secured to the patient's neck using a tracheostomy strap. A post op chest x-ray is pending. The patient tolerated the procedure well. All sharps were disposed of appropriately. The patient was taken back to the ICU in stable condition.
[2020-02-13] MEDS ORDERED: fentaNYL 100 MCG/2 ML INJ IV PRN (12:35)
[2020-02-13] MEDS ORDERED: fentaNYL DRIP Premix 2,000 MCG/100 ML BAG IV SCH (13:00)
--- NOTE | 2020-02-13 13:30 | XRay Report ---
CHEST 1 VIEW 02/13/2020 12:10 PM INDICATION / CLINICAL INFORMATION: Status post tracheostomy. COMPARISON: One view of the chest from earlier today. FINDINGS: SUPPORT DEVICES: The ET tube has been removed and replaced with a tracheostomy tube that is in good p osition. HEART / MEDIASTINUM: No significant abnormality. LUNGS / PLEURA: Bilateral pleural effusions have improved with probable associated atelectasis. The u pper lungs are clear. No pneumothorax. ADDITIONAL FINDINGS: No significant additional findings. IMPRESSION: 1. Satisfactory positioning of the tracheostomy tube. 2. Improved aeration of the lungs. Signer Name: Greg Higgins MD Signed: 02/13/2020 1:26 PM Workstation Name: [id number]
--- NOTE | 2020-02-13 15:28 | Post Anesthesia Evaluation ---
- Post Anesthesia Evaluation Patient Participated: No Airway Patent: Yes Stable Respiratory Function: Yes Nausea/Vomiting: No Temp > 96.8F: Yes Pain Manageable: Yes Adequeate Hydration: Yes Anesthesia Complications: No Block Receding Appropriately: Not Applicable Patient on Ventilator: Yes
[2020-02-13] MEDS: DONEPEZIL 10 MG TAB PO SCH (22:22)
[2020-02-13] MEDS: traZODone 50 MG TAB PO SCH (22:23)
[2020-02-13] MEDS: MIRTAZAPINE 15 MG TAB PO SCH (22:26)
[2020-02-14] MEDS: INSULIN REGULAR, HUMAN 100 UNIT/ML 3ML VIAL SUB-Q SCH ×4 (05:32→17:58)
[2020-02-14] MEDS: PIPERACIL/TAZOBACTA 4.5/NS 100 4.5 GM/100 ML VIAL IV SCH ×3 (05:38→23:03)
[2020-02-14 05:59] LABS: Basophils # (Auto) 0.1 K/mm3 (0.0-0.1); Basophils % (Auto) 0.8 % (0.0-1.8); Eosinophils # (Auto) 0.1 K/mm3 (0.0-0.4); Hematocrit 25.8 % (30.3-42.9); Hemoglobin 8.7 gm/dl (10.1-14.3); Lymphocytes # (Auto) 1.4 K/mm3 (1.2-5.4); Lymphocytes % (Auto) 13.2 % (13.4-35.0); Mean Corpuscular HGB Conc 34 % (30-34); Mean Corpuscular Volume 94 fl (79-97); Monocytes # (Auto) 0.4 K/mm3 (0.0-0.8); Monocytes % (Auto) 3.6 % (0.0-7.3); Platelet Count 389 K/mm3 (140-440); Red Blood Count 2.74 M/mm3 (3.65-5.03)
[2020-02-14 06:02] LABS: Red Cell Distribution Width 21.3 % (13.2-15.2)
[2020-02-14 06:17] LABS: Blood Urea Nitrogen 20 mg/dL (7-17); Calcium 8.2 mg/dL (8.4-10.2); Hemolysis Index 28
[2020-02-14 06:34] LABS: BUN/Creatinine Ratio 67
[2020-02-14] MEDS: SCOPOLAMINE TRANSDERMAL PATCH 72 HR TD SCH (09:31)
[2020-02-14] MEDS: HEPARIN 5,000 UNIT/1 ML VIAL SUB-Q SCH ×2 (09:31→23:03)
[2020-02-14] MEDS: FAMOTIDINE 20 MG TAB PO SCH ×2 (09:31→23:02)
[2020-02-14] MEDS: MULTIVITAMINS 5 ML ORAL LIQUID PO SCH (09:31)
[2020-02-14] MEDS: FERROUS SULFATE 308 MG (62mg Elemental Iron) / 7 ML ELIXIR FEEDTUBE SCH (09:31)
--- NOTE | 2020-02-14 09:45 | Progress Note ---
Subjective Date of service: 02/14/20 Narrative: Pt seen and examined. No overnight events. Tolerating TF. Overall condition unchanged. Objective Vital Signs - 12hr 02/13/20 02/13/20 02/13/20 22:00 22:30 23:00 Temperature Pulse Rate 76 87 87 Pulse Rate [ From Monitor] Respiratory 19 17 19 Rate Blood Pressure 117/48 110/55 99/46 O2 Sat by Pulse 100 100 100 Oximetry 02/13/20 02/13/20 02/13/20 23:30 23:33 23:43 Temperature 97.9 F Pulse Rate 82 83 Pulse Rate [ From Monitor] Respiratory 20 Rate Blood Pressure 116/47 116/52 O2 Sat by Pulse 100 100 Oximetry 02/14/20 02/14/20 02/14/20 00:00 00:30 01:00 Temperature Pulse Rate 74 67 80 Pulse Rate [ 74 From Monitor] Respiratory 19 16 18 Rate Blood Pressure 97/45 90/48 124/57 O2 Sat by Pulse 100 100 100 Oximetry 02/14/20 02/14/20 02/14/20 01:30 02:00 02:30 Temperature Pulse Rate 84 71 78 Pulse Rate [ From Monitor] Respiratory 18 14 18 Rate Blood Pressure 102/50 101/48 104/49 O2 Sat by Pulse 100 100 100 Oximetry 02/14/20 02/14/20 02/14/20 03:00 03:30 03:56 Temperature 97.8 F Pulse Rate 70 86 87 Pulse Rate [ From Monitor] Respiratory 18 17 Rate Blood Pressure 115/49 117/58 111/52 O2 Sat by Pulse 100 100 100 Oximetry 02/14/20 02/14/20 02/14/20 04:00 04:30 05:00 Temperature Pulse Rate 81 104 H 89 Pulse Rate [ 85 From Monitor] Respiratory 17 22 19 Rate Blood Pressure 111/52 134/63 122/54 O2 Sat by Pulse 100 100 100 Oximetry 02/14/20 02/14/20 02/14/20 05:30 06:00 06:30 Temperature Pulse Rate 92 H 93 H 101 H Pulse Rate [ From Monitor] Respiratory 21 19 17 Rate Blood Pressure 110/54 103/52 103/55 O2 Sat by Pulse 100 100 100 Oximetry 02/14/20 02/14/20 02/14/20 07:00 07:30 08:00 Temperature 97.6 F Pulse Rate 90 95 H 110 H Pulse Rate [ 110 H From Monitor] Respiratory 18 19 23 Rate Blood Pressure 109/48 121/56 138/75 O2 Sat by Pulse 100 100 100 Oximetry 02/14/20 02/14/20 08:30 09:00 Temperature Pulse Rate 108 H 101 H Pulse Rate [ From Monitor] Respiratory 22 21 Rate Blood Pressure 117/52 113/51 O2 Sat by Pulse 100 100 Oximetry - General physical appearance Narrative Exam: Gen: Eyes open spontaneously, does not follow commands ENT: Tracheostomy in place with dressing c/d/i and no bleeding CV: S1, S2+ Resp: even and unlabored Abd: soft, NT. PEG tube present Ext: contracted with mild edema - Labs 02/14/20 04:26 02/14/20 04:26 Diabetes panel 02/14/20 Range/Units 04:26 Sodium 142 (137-145) mmol/L Potassium 3.4 L (3.6-5.0) mmol/L Chloride 107.6 H (98-107) mmol/L Carbon Dioxide 28 (22-30) mmol/L BUN 20 H (7-17) mg/dL Creatinine 0.3 L (0.6-1.2) mg/dL Glucose 170 H (65-100) mg/dL Calcium 8.2 L (8.4-10.2) mg/dL Calcium panel 02/14/20 Range/Units 04:26 Calcium 8.2 L (8.4-10.2) mg/dL Pituitary panel 02/14/20 Range/Units 04:26 Sodium 142 (137-145) mmol/L Potassium 3.4 L (3.6-5.0) mmol/L Chloride 107.6 H (98-107) mmol/L Carbon Dioxide 28 (22-30) mmol/L BUN 20 H (7-17) mg/dL Creatinine 0.3 L (0.6-1.2) mg/dL Glucose 170 H (65-100) mg/dL Calcium 8.2 L (8.4-10.2) mg/dL Adrenal panel 02/14/20 Range/Units 04:26 Sodium 142 (137-145) mmol/L Potassium 3.4 L (3.6-5.0) mmol/L Chloride 107.6 H (98-107) mmol/L Carbon Dioxide 28 (22-30) mmol/L BUN 20 H (7-17) mg/dL Creatinine 0.3 L (0.6-1.2) mg/dL Glucose 170 H (65-100) mg/dL Calcium 8.2 L (8.4-10.2) mg/dL
--- NOTE | 2020-02-14 10:56 | Progress Note ---
Assessment and Plan Assessment and plan: --Hypokalemia; 30 mEq KCl via PEG --Bilateral upper extremity edema and swelling R>L Lateral venous Doppler of the upper extremity to rule out DVT Support and elevate the limbs --Acute hypoxic respiratory failure; intubated. vent dependent Status post tracheostomy, trach care status post extubation 02/02/2020 but had to be reintubated on 02/04 Surgery evaluated, scheduled for tracheostomy today 02/13/2020 N.p.o. status --Anemia ; unknown etiology , no external evidence of bleeding Received 1 unit PRBC transfusion , hemoglobin improved from 6.9-8.6-8.7 Closely monitor H&H and transfuse additional PRBC as needed --Shock/ septic shock Monitor off Levophed, supportive care Etiology secondary to infected sacral decubitus ulcer and UTI --Sepsis /Proteus bacteremia: Due to sacral decubitus Long-term Zosyn per ID stop date 02/27/2020[total 6 weeks] -- Hypernatremia; resolved -- Uncontrolled diabetes mellitus; Blood sugars well controlled Accu-Chek sliding scale coverage long-acting insulin as needed DM management with SSI, TF --s/p PEA arrest night of 01/28/2020 and 02/05/2020 s/p CPR per ACLS protocol --Anoxic/hypoxic brain injury[status post PEA cardiac arrest] -- Hydropneumothorax, not POA Patient developed hydropneumothorax on 01/15. Surgery evaluated s/p chest tube placed on 01/15. Improved, s/p chest tube removed 01/22, extubated 02/02/2020 Patient is using nasal cannula oxygen/BiPAP and Ventimask as needed -- large Left pleural effusion 01/25 01/27; s/p bronchoscopy and Therapeutic suctioning of the lungs done by motorcycle subassembler --Unstageable sacral decubitus ulcer, infected/POA s/p wound debridement on 01/15. Wound vac in place ID recommend zosyn 4.5 g IV q8h total 6 weeks stop date 02/27/2020 -- UTI (urinary tract infection)Completed antibiotics --h/o Bilateral pulmonary embolism 7 months ago Repeat CTA chest and LE doppler showed no acute PE or DVT, eliquis stopped -- Dementia: Continue donepezil --Severe protein-calorie malnutrition PEG placed 01/13. PEG feeds per protocol --DVT prophylaxis; SCDs Closely monitor the patient and adjust management as needed Plan of care reviewed with the patient and her nurse The high probability of a clinically significant, sudden or life threatening deterioration of the [Respiratory, POLITICAL CARTOONIST, CVs] system(s) required my full and direct attention, intervention and personal management. The aggregate critical care time was [32] minutes. This time is in addition to time spent performing reported procedures but includes the following: [x] Data Review and interpretation [x] Patient assessment and monitoring of vital signs [x] Documentation [x] Medication orders and management . Patient currently with PSV/CPAP FiO2 50%, PEEP of 6 and pressure support of 10. Continue PSV trials as tolerated and wean per pulmonary. Recall ID consultation. 02/08/2020. Patient with Proteus bacteremia likely from sacral decubitus. Continue Zosyn 4.5 g IV every 8 hours until stop date of 02/26. Patient still on mechanical ventilation AC mode rate 12, tidal volume 350, FiO2 30% and PEEP of 6. Poor prognosis. Consider hospice. Continue scopolamine for secretion control. Continue pressors to maintain MAP > 65; currently off. 02/09/2020. Continue Zosyn 4.5 g IV every 8 hours for Proteus bacteremia with end date of 02/27/2020. Continue wound care/wound VAC per surgery. Patient still on mechanical ventilation AC mode rate 12, tidal volume 350, FiO2 30% and PEEP of 6. Poor prognosis. Consider hospice. Continue scopolamine for secretion control. Currently off pressors. 02/09; evaluated by surgery, planning tracheostomy pending COVID test 02/10; possible tracheostomy today pending COVID test, surgery following 02/11; patient n.p.o. from midnight, possible tracheostomy tomorrow Received 1 unit of PRBC, Hb improved to 8.6 02/12; scheduled for tracheostomy today 02/13; trach care, bilateral upper extremity L edema and swelling, check venous Doppler History Interval history: Patient had tracheostomy yesterday tolerated the procedure well On ventilatory support Patient's right upper extremity swelling edema more than left upper extremity We will check Doppler study to rule out DVT Patient alert and awake Vital signs noted, tracheostomy in place Hospitalist Physical - Constitutional Vitals: Temp Pulse Resp BP Pulse Ox 97.6 F 109 H 25 H 118/56 100 02/14/20 08:00 02/14/20 10:00 02/14/20 10:00 02/14/20 10:00 02/14/20 10:00 General appearance: Present: no acute distress, well-nourished, other (Intubated on vent) - EENT Eyes: Present: PERRL, EOM intact ENT: other (Tracheostomy in place) - Respiratory Respiratory effort: normal Respiratory: bilateral: diminished, rhonchi, negative: rales, wheezing - Cardiovascular Rhythm: regular Heart Sounds: Present: S1 & S2 - Extremities Extremities: no ischemia, abnormal (Edema bilateral upper extremities) Extremity abnormal: other (Contracted) - Abdominal General gastrointestinal: soft, non-tender, non-distended, normal bowel sounds, other (PEG in place) - Integumentary Integumentary: Present: clear, warm - Psychiatric Psychiatric: other (On ventilatory support) - Neurologic Neurologic: other (Noncommunicative on ventilatory support) Results - Labs CBC & Chem 7: 02/14/20 04:26 02/14/20 04:26 Labs: Laboratory Last Values WBC 10.4 K/mm3 (4.5-11.0) 02/14/20 04:26 RBC 2.74 M/mm3 (3.65-5.03) L 02/14/20 04:26 Hgb 8.7 gm/dl (10.1-14.3) L 02/14/20 04:26 Hct 25.8 % (30.3-42.9) L 02/14/20 04:26 MCV 94 fl (79-97) 02/14/20 04:26 MCH 32 pg (28-32) 02/14/20 04:26 MCHC 34 % (30-34) 02/14/20 04:26 RDW 21.3 % (13.2-15.2) H 02/14/20 04:26 Plt Count 389 K/mm3 (140-440) 02/14/20 04:26 Lymph % (Auto) 13.2 % (13.4-35.0) L 02/14/20 04:26 Carson % (Auto) 3.6 % (0.0-7.3) 02/14/20 04:26 Eos % (Auto) 1.0 % (0.0-4.3) 02/14/20 04:26 Baso % (Auto) 0.8 % (0.0-1.8) 02/14/20 04:26 Lymph # (Auto) 1.4 K/mm3 (1.2-5.4) 02/14/20 04:26 Carson # (Auto) 0.4 K/mm3 (0.0-0.8) 02/14/20 04:26 Eos # (Auto) 0.1 K/mm3 (0.0-0.4) 02/14/20 04:26 Baso # (Auto) 0.1 K/mm3 (0.0-0.1) 02/14/20 04:26 Add Manual Diff Complete 02/11/20 04:12 Total Counted 100 02/11/20 04:12 Seg Neutrophils % 81.4 % (40.0-70.0) H 02/14/20 04:26 Seg Neuts % (Manual) 83.0 % (40.0-70.0) H 02/11/20 04:12 Band Neutrophils % 0 % 02/11/20 04:12 Lymphocytes % (Manual) 11.0 % (13.4-35.0) L 02/11/20 04:12 Reactive Lymphs % (Man) 0 % 02/11/20 04:12 Monocytes % (Manual) 5.0 % (0.0-7.3) 02/11/20 04:12 Eosinophils % (Manual) 1.0 % (0.0-4.3) 02/11/20 04:12 Basophils % (Manual) 0 % (0.0-1.8) 02/11/20 04:12 Metamyelocytes % 0 % 02/11/20 04:12 Myelocytes % 0 % 02/11/20 04:12 Promyelocytes % 0 % 02/11/20 04:12 Blast Cells % 0 % 02/11/20 04:12 Nucleated RBC % Not Reportable 02/11/20 04:12 Seg Neutrophils # 8.4 K/mm3 (1.8-7.7) H 02/14/20 04:26 Seg Neutrophils # Man 7.6 K/mm3 (1.8-7.7) 02/11/20 04:12 Band Neutrophils # 0.0 K/mm3 02/11/20 04:12 Lymphocytes # (Manual) 1.0 K/mm3 (1.2-5.4) L 02/11/20 04:12 Abs React Lymphs (Man) 0.0 K/mm3 02/11/20 04:12 Monocytes # (Manual) 0.5 K/mm3 (0.0-0.8) 02/11/20 04:12 Eosinophils # (Manual) 0.1 K/mm3 (0.0-0.4) 02/11/20 04:12 Basophils # (Manual) 0.0 K/mm3 (0.0-0.1) 02/11/20 04:12 Metamyelocytes # 0.0 K/mm3 02/11/20 04:12 Myelocytes # 0.0 K/mm3 02/11/20 04:12 Promyelocytes # 0.0 K/mm3 02/11/20 04:12 Blast Cells # 0.0 K/mm3 02/11/20 04:12 WBC Morphology Not Reportable 02/11/20 04:12 Hypersegmented Neuts Not Reportable 02/11/20 04:12 Hyposegmented Neuts Not Reportable 02/11/20 04:12 Hypogranular Neuts Not Reportable 02/11/20 04:12 Smudge Cells Not Reportable 02/11/20 04:12 Toxic Granulation Not Reportable 02/11/20 04:12 Toxic Vacuolation Not Reportable 02/11/20 04:12 Dohle Bodies Not Reportable 02/11/20 04:12 Pelger-Huet Anomaly Not Reportable 02/11/20 04:12 Lata Rods Not Reportable 02/11/20 04:12 Platelet Estimate Consistent w auto 02/11/20 04:12 Clumped Platelets Not Reportable 02/11/20 04:12 Plt Clumps, EDTA Not Reportable 02/11/20 04:12 Large Platelets Not Reportable 02/11/20 04:12 Giant Platelets Not Reportable 02/11/20 04:12 Platelet Satelliting Not Reportable 02/11/20 04:12 Plt Morphology Comment Not Reportable 02/11/20 04:12 RBC Morphology Not Reportable 02/11/20 04:12 Dimorphic RBCs Not Reportable 02/11/20 04:12 Polychromasia Not Reportable 02/11/20 04:12 Hypochromasia Not Reportable 02/11/20 04:12 Poikilocytosis Not Reportable 02/11/20 04:12 Anisocytosis 2+ 02/11/20 04:12 Microcytosis Not Reportable 02/11/20 04:12 Macrocytosis Few 02/11/20 04:12 Spherocytes Not Reportable 02/11/20 04:12 Pappenheimer Bodies Not Reportable 02/11/20 04:12 Sickle Cells Not Reportable 02/11/20 04:12 Target Cells Few 02/11/20 04:12 Tear Drop Cells Not Reportable 02/11/20 04:12 Ovalocytes Not Reportable 02/11/20 04:12 Helmet Cells Not Reportable 02/11/20 04:12 Lombardi-C[place] Bodies Not Reportable 02/11/20 04:12 Orchard Rings Not Reportable 02/11/20 04:12 Leonidas Cells Not Reportable 02/11/20 04:12 Bite Cells Not Reportable 02/11/20 04:12 Crenated Cell Not Reportable 02/11/20 04:12 Elliptocytes Not Reportable 02/11/20 04:12 Acanthocytes (Spur) Not Reportable 02/11/20 04:12 Rouleaux Not Reportable 02/11/20 04:12 Hemoglobin C Crystals Not Reportable 02/11/20 04:12 Schistocytes Not Reportable 02/11/20 04:12 Malaria parasites Not Reportable 02/11/20 04:12 Gideon Bodies Not Reportable 02/11/20 04:12 Hem Pathologist Commnt No 02/11/20 04:12 APTT 33.9 Sec. (24.2-36.6) 01/26/20 16:30 PT 14.4 Sec. (12.2-14.9) 02/02/20 05:25 INR 1.11 (0.87-1.13) 02/02/20 05:25 Heparin Anti-Xa Level 0.74 U.I./ml (0.3-0.7) H 01/28/20 08:50 ABG pH 7.463 pH Units (7.350-7.450) H 02/13/20 04:30 POC ABG pCO2 38.5 mmHg (32.0-48.0) 02/11/20 03:43 ABG pCO2 39.6 mm Hg 02/13/20 04:30 POC ABG pO2 112.6 mmHg (83-108) H 02/11/20 03:43 ABG pO2 98.4 mm Hg (80.0-90.0) H 02/13/20 04:30 POC ABG HCO3 28 02/11/20 03:43 ABG HCO3 27.7 mmol/L (20.0-26.0) H 02/13/20 04:30 ABG O2 Saturation 97.7 % (95.0-99.0) 02/13/20 04:30 ABG O2 Content 19.3 (0.0-44) 02/13/20 04:30 POC ABG Base Excess 4.2 02/11/20 03:43 ABG Base Excess 3.7 mmol/L (-2.0-3.0) H 02/13/20 04:30 ABG Hemoglobin 14.4 gm/dl (12.0-16.0) 02/13/20 04:30 ABG Oxyhemoglobin 96.7 (94-98) 02/09/20 03:04 ABG Carboxyhemoglobin 1.8 % (0.0-5.0) 02/13/20 04:30 ABG Methemoglobin 0.6 % (0.0-1.5) 02/13/20 04:30 ABG Sodium 138.5 mmol/L (136.0-145.0) 02/11/20 03:43 ABG Potassium 3.4 mmol/L (3.40-4.50) 02/11/20 03:43 ABG Chloride 107.0 mmol/L (98-107) 02/11/20 03:43 ABG Glucose 154 mg/dL (65-95) H 02/11/20 03:43 Oxyhemoglobin 95.3 % (95.0-99.0) 02/13/20 04:30 Carboxyhemoglobin TNR 02/08/20 03:55 FiO2 25 % 02/13/20 04:30 Sodium 142 mmol/L (137-145) 02/14/20 04:26 Potassium 3.4 mmol/L (3.6-5.0) L 02/14/20 04:26 Chloride 107.6 mmol/L (98-107) H 02/14/20 04:26 Carbon Dioxide 28 mmol/L (22-30) 02/14/20 04:26 Anion Gap 10 mmol/L 02/14/20 04:26 BUN 20 mg/dL (7-17) H 02/14/20 04:26 Creatinine 0.3 mg/dL (0.6-1.2) L 02/14/20 04:26 Estimated GFR > 60 ml/min 02/14/20 04:26 BUN/Creatinine Ratio 67 % 02/14/20 04:26 Glucose 170 mg/dL (65-100) H 02/14/20 04:26 POC Glucose 182 (70-105) H 02/14/20 05:05 Hemoglobin A1c 5.3 % (4-6) 01/11/20 00:45 Lactic Acid 1.30 mmol/L (0.7-2.0) 01/26/20 23:27 Calcium 8.2 mg/dL (8.4-10.2) L 02/14/20 04:26 Phosphorus 2.30 mg/dL (2.5-4.5) L 02/03/20 05:14 Magnesium 2.20 mg/dL (1.7-2.3) 02/06/20 05:11 Total Bilirubin 0.20 mg/dL (0.1-1.2) 02/13/20 04:45 AST 29 units/L (5-40) 02/13/20 04:45 ALT 38 units/L (7-56) 02/13/20 04:45 Alkaline Phosphatase 109 units/L (35-129) 02/13/20 04:45 C-Reactive Protein 14.80 mg/dL (0.00-1.30) H 01/29/20 Unknown Total Protein 4.2 g/dL (6.3-8.2) L 02/13/20 04:45 Albumin 2.0 g/dL (3.9-5) L 02/13/20 04:45 Albumin/Globulin Ratio 0.9 % 02/13/20 04:45 TSH 2.440 mlU/mL (0.270-4.200) 01/10/20 10:10 Procalcitonin 1.86 ng/mL (<0.15) 01/29/20 Unknown Arterial Blood Glucose 154 mg/dL (65-95) H 02/11/20 03:43 Arterial Blood Ionized Calcium 4.6 mg/dL (4.6-5.3) 02/11/20 03:43 Urine Color Cordelia (Yellow) 01/08/20 Unknown Urine Turbidity Cloudy (Clear) 01/08/20 Unknown Urine pH 5.0 (5.0-7.0) 01/08/20 Unknown Ur Specific Joaquin 1.018 (1.003-1.030) 01/08/20 Unknown Urine Protein 30 mg/dl mg/dL (Negative) 01/08/20 Unknown Urine Glucose (UA) Neg mg/dL (Negative) 01/08/20 Unknown Urine Ketones Neg mg/dL (Negative) 01/08/20 Unknown Urine Blood Mod (Negative) 01/08/20 Unknown Urine Nitrite Neg (Negative) 01/08/20 Unknown Urine Bilirubin Neg (Negative) 01/08/20 Unknown Urine Urobilinogen < 2.0 mg/dL (<2.0) 01/08/20 Unknown Ur Leukocyte Esterase Sm (Negative) 01/08/20 Unknown Urine WBC (Auto) 11.0 /HPF (0.0-6.0) H 01/08/20 Unknown Urine RBC (Auto) 7.0 /HPF (0.0-6.0) 01/08/20 Unknown U Epithel Cells (Auto) < 1.0 /HPF (0-13.0) 01/08/20 Unknown Urine Bacteria (Auto) 1+ /HPF (Negative) 01/08/20 Unknown Urine Mucus 2+ /HPF 01/08/20 Unknown Urine Yeast (Budding) 1+ /HPF 01/08/20 Unknown Vancomycin Trough 7.9 ug/mL (5.0-20.0) 01/17/20 16:04 Coronavirus (PCR) Negative (Negative) 02/10/20 10:06 Blood Type A POSITIVE 02/11/20 08:22 Antibody Screen Negative 02/11/20 08:22 Crossmatch See Detail 02/11/20 08:22 Mejía/IV: Voiding Method Indwelling Catheter IV Catheter Type [Left Upper PICC Line arm] IV Catheter Type [Right Upper Mid-line arm] IV Catheter Type [Right Peripheral IV Forearm] Active Medications - Current Medications Current Medications: Generic Name Dose Route Start Last Admin Trade Name Freq PRN Reason Stop Dose Admin Acetaminophen 650 mg 01/08/20 23:14 01/18/20 06:03 Tylenol PO 650 mg Q4H PRN Administration Pain MILD(1-3)/Fever >100.5/GARCIA Lipase/Protease/Amylase 1 each 01/17/20 08:37 Pancreazchai Sommers 10,500 Unit FEEDTUBE PRN PRN For Clogged Feeding Tube Atorvastatin Calcium 10 mg 01/09/20 22:00 02/13/20 22:23 Atorvastatin PO 10 mg QHS BRO Administration Dextrose 0 ml 01/08/20 23:14 02/10/20 17:18 D50w (25gm) Syringe IV 10 ml Q30MIN PRN Administration Hypoglycemia Protocol Donepezil HCl 10 mg 01/09/20 22:00 02/13/20 22:22 Aricept PO 10 mg QHS BRO Administration Famotidine 20 mg 01/27/20 10:00 02/14/20 09:31 Pepcid PO 20 mg BID BRO Administration Fentanyl 50 mcg 02/13/20 12:35 Sublimaze IV 02/14/20 12:34 Q10MIN PRN ANALGESIA Ferrous Sulfate 308 mg 02/09/20 12:00 02/14/20 09:31 Ferrous Sulfate FEEDTUBE 308 mg DAILY BRO Administration Fluticasone Propionate 100 mcg 01/25/20 20:00 01/26/20 06:09 Flonase NS 100 mcg QDAY PRN Administration Nasal Congestion Heparin Sodium (Porcine) 5,000 unit 01/28/20 10:00 02/14/20 09:31 Heparin SUB-Q 5,000 unit Q12HR BRO Administration Hydrophilic Ointment 1 applic 01/28/20 10:57 Vaseline Lip Therapy TP Q2HR PRN Dry Lips Piperacillin Sod/Tazobactam Sod 4.5 gm in 100 mls @ 200 mls/hr 01/19/20 14:00 02/14/20 05:38 Zosyn/Ns 4.5gm/100ml IV 02/27/20 22:29 200 mls/hr Q8HR BRO Administration Protocol Norepinephrine 4 mg in 250 mls @ 7.5 mls/hr 02/05/20 01:00 02/06/20 15:32 Levophed Drip 4 Mg/Ns 250 Ml IV Infused TITR BRO Titration Protocol 2 MCG/MIN Fentanyl Citrate 2,000 mcg in 100 mls @ 3.6 mls/hr 02/13/20 13:00 02/14/20 09:15 Fentanyl Drip Premix IV 0 mcg/kg/hr TITR BRO 0 mls/hr Titration Protocol 1 MCG/KG/HR Insulin Human Regular 0 unit 01/27/20 12:00 02/14/20 05:37 Humulin R SUB-Q 3 unit Q6HR BRO Administration Protocol Magnesium Hydroxide 30 ml 01/08/20 23:14 Milk Of Magnesia PO Q4H PRN Constipation Mirtazapine 15 mg 01/09/20 22:00 02/13/20 22:26 Remeron PO 15 mg QHS BRO Administration Multi-Ingred Cream/Lotion/Oil/Oint 1 applic 01/28/20 10:57 Artificial Tears Ophth Oint OU Q4HR PRN Dry Eye(s) Multivitamins 5 ml 02/09/20 12:00 02/14/20 09:31 Centrum Liq PO 5 ml QDAY BRO Administration Ondansetron HCl 4 mg 01/08/20 23:14 Zofran IV Q8H PRN Nausea And Vomiting Potassium Chloride 30 meq 02/14/20 10:52 Potassium Chloride FEEDTUBE 02/14/20 10:53 ONCE ONE Scopolamine 1 each 02/05/20 10:00 02/14/20 09:31 Transderm-Scop TD 1 each Q3D BOR Administration Simple Syrup 15 ml 01/17/20 08:37 Simple Syrup FEEDTUBE PRN PRN Hypoglycemia Simple Syrup 30 ml 01/17/20 08:37 02/11/20 23:43 Simple Syrup FEEDTUBE 30 ml PRN PRN Administration Hypoglycemia Sodium Bicarbonate 325 mg 01/17/20 08:37 Sodium Bicarbonate FEEDTUBE PRN PRN For Clogged Feeding Tube Sodium Chloride 10 ml 01/09/20 10:00 02/14/20 09:32 Sodium Chloride Flush Syringe 10 Ml IV 10 ml BID BRO Administration Sodium Chloride 10 ml 01/08/20 23:14 Sodium Chloride Flush Syringe 10 Ml IV PRN PRN LINE FLUSH Trazodone HCl 25 mg 01/09/20 22:00 02/13/20 22:23 Desyrel PO 25 mg QHS BRO Administration Nutrition/Malnutrition Assess - Dietary Evaluation Nutrition/Malnutrition Findings: Nutrition Notes Start: 01/09/20 12:13 Freq: Status: Active Protocol: Document 10/08/20 11:15 BK (Rec: 02/12/20 11:28 BK [id number]) Co-Sign 02/12/20 11:15 LP Nutrition Notes Initial or Follow up Reassessment Current Diagnosis Decubitus(Pressure Ulcer), Diabetes,Sepsis Other Pertinent Diagnosis UTI, dementia, PE, Sacral wound Current Diet Vital AF 1.2 at 50ml/hr Labs/Tests 02/10 Na 146 BUN 24 Cr 0.4 BG 168 Pertinent Medications Reviewed Height 5 ft 2 in Weight 72 kg [place] Body Weight (kg) 50.00 BMI 29.0 Weight change and time frame Wt change noted. Pt 4+ pitting edema continues. Weight Status Overweight Subjective/Other Information F/U for stable TF and Na levels. Pt TF running at goal rate. Na levels remain slightly elevated. Percent of energy/protein needs met: 91%/100% Burn Absent Trauma Absent GI Symptoms Diarrhea Current % PO Negligible Minimum of two criteria Yes Fluid Accumulation Moderate to Severe (severe) Reduced Toppiece Chopper Strength Measurably Reduced (severe) #3 Nutrition Diagnosis Malnutrition Diagnosis Progress(for reassessment Continues documentation) #2 Nutrition Diagnosis Inadequate oral intake Diagnosis Progress(for reassessment Continues documentation) #1 Nutrition Diagnosis Increased nutrient needs ( specify in comment below) Diagnosis Progress(for reassessment Continues documentation) Is patient on ventilator? Yes Is Patient Ambulatory and/or Out of Bed No REE-([facility]-confined to bed) 1437.756 Kcal/Kg value to use for calculation 22 Approximate Energy Requirements Using 1584 kcal/Kg Calculation Used for Recommendations Kcal/kg Additional Notes Pro: 81-98 g (1.25-1.5 g/kg) Fluid: 1ml/kcal Nutrition Intervention Change Diet Order: Continue Nutrition Support: Vital AF 1.2 at 50ml/hr Flush 250ml q4h per MD Kcal 1,440 Protein (gm) 90 Fluid (mL) 973 Goal #1 Meet at least 80% of kcal and protein needs via TF Goal #2 TF tolerance Goal #3 Wound Healing Anticipated Discharge Needs: Continue TF Follow-Up By: 02/16/20 Additional Comments F/U for stable TF and Na levels
[2020-02-14] MEDS ORDERED: POTASSIUM CHLORIDE 20 MEQ PACKET FEEDTUBE ONE (11:00)
[2020-02-14] MEDS ORDERED: LOPERAMIDE 2 MG/15 ML PO PRN (12:00)
--- NOTE | 2020-02-14 12:30 | Progress Note ---
Assessment and Plan Severe sepsis with shock. Left lung atelectasis. Left pleural effusion. Acute hypoxemic respiratory failure on MVS s/p Tracheostomy s/p Cardiopulamanry arrest with ROSC x2 Severe sepsis with shock Acute possibly on chronic encephalopathy. History of diabetes. Urinary tract infection. History of pulmonary embolism, diagnosed several months ago. Sacral decubitus ulcer. Dementia. Anemia that is normocytic. Trach care, airway clearance , secretion managment -SBT as tolerated -Monitor hemodynamics closely and hemoglobin -VAP bundle addressed, Daily SBT as tolerated -Wean FIO2 for O2 sats >92%, currently on FIO2 of 30% -Aspiration precautions, HOB >40 -Enteric nutritional support- has a PEG - continue bronchodilators with pulmonary hygiene per RT - continue accuchecks with glycemic control per SSI (While critically ill target blood glucose of 140-180 mg/dL; avoid hypoglycemia) - avoid nephrotoxins, renally dose all medications - continue to avoid benzodiazepines, reduce the possibility of delirium - complete antibiotics -on Zosyn for sacral osteomyelitis - prn analgesia per CPOT score - Maintenance of sleep-wake cycle, avoid delirium -VTE prophylaxis with Heparin - Stress ulcer prophylaxis with Famotidine - PT/OT/ROM exercises - continue mobility protocol, frequent turning and off loading to prevent further pressure ulcers -Wound care with wound vac - Monitor hemodynamics closely -Free water flushes for hypernatremia - continue other care per attending / other consultants CONDITION: CRITICAL PROGNOSIS: GUARDED CODE STATUS: FULL CODE The high probability of a clinically significant, sudden or life-threatening de terioration of the [respiratory, cardiovascular & neurologic] system(s) required my full and direct attention, intervention and personal management. The aggregate critical care time was [33] minutes without overlap. Time includes spent on; [x] Data Review and interpretation [x] Patient assessment and monitoring of vital signs [x] Documentation [x] Medication orders and management Subjective Date of service: 02/14/20 Principal diagnosis: Septic Shock; S/P Cardiac Arrest; Ac. hypoxemic resp failure; UTI Interval history: Patient is seen today for: PEA arrest with ROSC, trach to MVS; Severe sepsis with shock ; Acute hypoxemic respiratory failure; Acute possibly on chronic encephalopathy; DM II ; UTI ; VTE Seen and examined at bedside; 24hour events reviewed; nursing and respiratory care staff consulted; no adverse overnight events reported to me; resting peacefully in bed; No fevers, no vomiting. Orally intubated, awake and alert. Not on any pressors. No overnight events. s/p trach yesterday Objective Vital Signs - 12hr 02/14/20 02/14/20 02/14/20 01:00 01:30 02:00 Temperature Pulse Rate 80 84 71 Pulse Rate [ From Monitor] Respiratory 18 18 14 Rate Blood Pressure 124/57 102/50 101/48 O2 Sat by Pulse 100 100 100 Oximetry 02/14/20 02/14/20 02/14/20 02:30 03:00 03:30 Temperature 97.8 F Pulse Rate 78 70 86 Pulse Rate [ From Monitor] Respiratory 18 18 17 Rate Blood Pressure 104/49 115/49 117/58 O2 Sat by Pulse 100 100 100 Oximetry 02/14/20 02/14/20 02/14/20 03:56 04:00 04:30 Temperature Pulse Rate 87 81 104 H Pulse Rate [ 85 From Monitor] Respiratory 17 22 Rate Blood Pressure 111/52 111/52 134/63 O2 Sat by Pulse 100 100 100 Oximetry 02/14/20 02/14/20 02/14/20 05:00 05:30 06:00 Temperature Pulse Rate 89 92 H 93 H Pulse Rate [ From Monitor] Respiratory 19 21 19 Rate Blood Pressure 122/54 110/54 103/52 O2 Sat by Pulse 100 100 100 Oximetry 02/14/20 02/14/20 02/14/20 06:30 07:00 07:30 Temperature Pulse Rate 101 H 90 95 H Pulse Rate [ From Monitor] Respiratory 17 18 19 Rate Blood Pressure 103/55 109/48 121/56 O2 Sat by Pulse 100 100 100 Oximetry 02/14/20 02/14/20 02/14/20 08:00 08:30 09:00 Temperature 97.6 F Pulse Rate 104 H 108 H 101 H Pulse Rate [ 110 H From Monitor] Respiratory 23 22 21 Rate Blood Pressure 138/75 117/52 113/51 O2 Sat by Pulse 100 100 100 Oximetry 02/14/20 02/14/20 02/14/20 09:30 10:00 11:53 Temperature 98 F Pulse Rate 111 H 109 H Pulse Rate [ From Monitor] Respiratory 19 25 H Rate Blood Pressure 120/57 118/56 O2 Sat by Pulse 100 100 Oximetry Constitutional: no acute distress, alert, other (elderly chronically ill looking female trach to MVS) Eyes: non-icteric ENT: oropharynx moist, other (trach) Neck: supple, no lymphadenopathy Effort: normal Ascultation: Bilateral: clear, diminished breath sounds, rales (bases predominant), rhonchi (scant) Percussion: Bilateral: not dull Cardiovascular: regular rate and rhythm, other (S1,S2) Gastrointestinal: normoactive bowel sounds, soft, non-tender, other (PEG in place) Integumentary: decubitus ulcer Extremities: no cyanosis, pulses normal, no ischemia or petechiae, edema, other (bilateral upper extremity edema) Neurologic: pupils equal and round, other (awake and alert, not obeying commands) Psychiatric: other (Unable to assess secondary to mental status) CBC and BMP: 02/14/20 04:26 02/14/20 04:26 ABG, PT/INR, D-dimer: ABG ABG pH 7.463 pH Units (7.350-7.450) H 02/13/20 04:30 POC ABG pCO2 38.5 mmHg (32.0-48.0) 02/11/20 03:43 ABG pCO2 39.6 mm Hg 02/13/20 04:30 POC ABG pO2 112.6 mmHg (83-108) H 02/11/20 03:43 ABG pO2 98.4 mm Hg (80.0-90.0) H 02/13/20 04:30 POC ABG HCO3 28 02/11/20 03:43 ABG O2 Saturation 97.7 % (95.0-99.0) 02/13/20 04:30 PT/INR, D-dimer PT 14.4 Sec. (12.2-14.9) 02/02/20 05:25 INR 1.11 (0.87-1.13) 02/02/20 05:25 Abnormal lab findings: Abnormal Labs 01/08/20 01/08/20 01/08/20 16:29 16:29 16:29 WBC 13.5 H RBC Hgb Hct MCHC RDW 15.5 H Plt Count MCH Lymph % (Auto) Lymph # Lymph # (Auto) Seg Neutrophils % Seg Neuts % (Manual) 85.0 H Lymphocytes % (Manual) 11.0 L Seg Neutrophils # Seg Neutrophils # Man 11.5 H Nucleated RBC % Lymphocytes # (Manual) Monocytes # (Manual) PT INR Heparin Anti-Xa Level POC ABG pO2 ABG pH ABG Hemoglobin ABG Oxyhemoglobin ABG pO2 ABG HCO3 ABG O2 Saturation ABG Base Excess ABG Potassium ABG Chloride ABG Glucose Oxyhemoglobin Sodium 161 H* Potassium Chloride 125.5 H Carbon Dioxide 20 L BUN 30 H Creatinine Glucose 115 H POC Glucose Lactic Acid 2.20 H* Calcium 7.9 L AST 48 H Phosphorus Total Protein Albumin 2.5 L C-Reactive Protein Arterial Blood Glucose Arterial Blood Ionized Calcium Urine WBC (Auto) Crossmatch 01/08/20 01/08/20 01/08/20 19:02 23:30 Unknown WBC RBC Hgb Hct MCHC RDW Plt Count MCH Lymph % (Auto) Lymph # Lymph # (Auto) Seg Neutrophils % Seg Neuts % (Manual) Lymphocytes % (Manual) Seg Neutrophils # Seg Neutrophils # Man Nucleated RBC % Lymphocytes # (Manual) Monocytes # (Manual) PT INR Heparin Anti-Xa Level POC ABG pO2 ABG pH ABG Hemoglobin ABG Oxyhemoglobin ABG pO2 ABG HCO3 ABG O2 Saturation ABG Base Excess ABG Potassium ABG Chloride ABG Glucose Oxyhemoglobin Sodium Potassium Chloride Carbon Dioxide BUN Creatinine Glucose POC Glucose Lactic Acid 2.10 H* 2.50 H* Calcium AST Phosphorus Total Protein Albumin C-Reactive Protein Arterial Blood Glucose Arterial Blood Ionized Calcium Urine WBC (Auto) 11.0 H Crossmatch 01/09/20 01/09/20 01/09/20 00:19 00:54 05:52 WBC 13.5 H RBC 3.02 L Hgb 9.0 L D Hct 27.4 L D MCHC RDW Plt Count MCH Lymph % (Auto) 9.1 L Lymph # Lymph # (Auto) Seg Neutrophils % 87.6 H Seg Neuts % (Manual) Lymphocytes % (Manual) Seg Neutrophils # 11.8 H Seg Neutrophils # Man Nucleated RBC % Lymphocytes # (Manual) Monocytes # (Manual) PT INR Heparin Anti-Xa Level POC ABG pO2 ABG pH ABG Hemoglobin ABG Oxyhemoglobin ABG pO2 ABG HCO3 ABG O2 Saturation ABG Base Excess ABG Potassium ABG Chloride ABG Glucose Oxyhemoglobin Sodium Potassium Chloride Carbon Dioxide BUN Creatinine Glucose POC Glucose 118 H 116 H Lactic Acid Calcium AST Phosphorus Total Protein Albumin C-Reactive Protein Arterial Blood Glucose Arterial Blood Ionized Calcium Urine WBC (Auto) Crossmatch 01/09/20 01/09/20 01/09/20 05:52 05:52 13:03 WBC RBC Hgb Hct MCHC RDW Plt Count MCH Lymph % (Auto) Lymph # Lymph # (Auto) Seg Neutrophils % Seg Neuts % (Manual) Lymphocytes % (Manual) Seg Neutrophils # Seg Neutrophils # Man Nucleated RBC % Lymphocytes # (Manual) Monocytes # (Manual) PT 17.1 H INR 1.36 H Heparin Anti-Xa Level POC ABG pO2 ABG pH ABG Hemoglobin ABG Oxyhemoglobin ABG pO2 ABG HCO3 ABG O2 Saturation ABG Base Excess ABG Potassium ABG Chloride ABG Glucose Oxyhemoglobin Sodium 162 H* Potassium 3.0 L D Chloride 128.3 H Carbon Dioxide BUN 23 H Creatinine Glucose POC Glucose 55 L Lactic Acid Calcium 7.6 L AST Phosphorus Total Protein Albumin C-Reactive Protein Arterial Blood Glucose Arterial Blood Ionized Calcium Urine WBC (Auto) Crossmatch 01/09/20 01/09/20 01/09/20 21:22 21:50 22:28 WBC RBC Hgb Hct MCHC RDW Plt Count MCH Lymph % (Auto) Lymph # Lymph # (Auto) Seg Neutrophils % Seg Neuts % (Manual) Lymphocytes % (Manual) Seg Neutrophils # Seg Neutrophils # Man Nucleated RBC % Lymphocytes # (Manual) Monocytes # (Manual) PT INR Heparin Anti-Xa Level POC ABG pO2 ABG pH ABG Hemoglobin ABG Oxyhemoglobin ABG pO2 ABG HCO3 ABG O2 Saturation ABG Base Excess ABG Potassium ABG Chloride ABG Glucose Oxyhemoglobin Sodium 159 H Potassium 5.1 H D Chloride 128.5 H Carbon Dioxide 16 L BUN 23 H Creatinine Glucose 51 L POC Glucose 52 L 106 H Lactic Acid Calcium 8.2 L AST Phosphorus Total Protein Albumin C-Reactive Protein Arterial Blood Glucose Arterial Blood Ionized Calcium Urine WBC (Auto) Crossmatch 01/10/20 01/10/20 01/10/20 05:23 09:11 10:10 WBC 13.4 H RBC Hgb Hct MCHC RDW Plt Count MCH Lymph % (Auto) 7.2 L Lymph # 1.0 L Lymph # (Auto) Seg Neutrophils % 90.0 H Seg Neuts % (Manual) Lymphocytes % (Manual) Seg Neutrophils # 12.0 H Seg Neutrophils # Man Nucleated RBC % Lymphocytes # (Manual) Monocytes # (Manual) PT INR Heparin Anti-Xa Level POC ABG pO2 ABG pH ABG Hemoglobin ABG Oxyhemoglobin ABG pO2 ABG HCO3 ABG O2 Saturation ABG Base Excess ABG Potassium ABG Chloride ABG Glucose Oxyhemoglobin Sodium 155 H Potassium Chloride 122.8 H Carbon Dioxide 21 L BUN 19 H Creatinine Glucose POC Glucose 120 H Lactic Acid Calcium AST Phosphorus Total Protein Albumin C-Reactive Protein Arterial Blood Glucose Arterial Blood Ionized Calcium Urine WBC (Auto) Crossmatch 01/10/20 01/10/20 01/10/20 11:47 11:57 17:09 WBC RBC Hgb Hct MCHC RDW Plt Count MCH Lymph % (Auto) Lymph # Lymph # (Auto) Seg Neutrophils % Seg Neuts % (Manual) Lymphocytes % (Manual) Seg Neutrophils # Seg Neutrophils # Man Nucleated RBC % Lymphocytes # (Manual) Monocytes # (Manual) PT INR Heparin Anti-Xa Level POC ABG pO2 ABG pH ABG Hemoglobin ABG Oxyhemoglobin ABG pO2 ABG HCO3 ABG O2 Saturation ABG Base Excess ABG Potassium ABG Chloride ABG Glucose Oxyhemoglobin Sodium 153 H Potassium Chloride 118.3 H Carbon Dioxide 20 L BUN 19 H Creatinine Glucose 113 H POC Glucose 142 H 125 H Lactic Acid Calcium AST Phosphorus Total Protein Albumin C-Reactive Protein Arterial Blood Glucose Arterial Blood Ionized Calcium Urine WBC (Auto) Crossmatch 01/10/20 01/10/20 01/11/20 20:27 22:00 00:45 WBC RBC Hgb Hct MCHC RDW Plt Count MCH Lymph % (Auto) Lymph # Lymph # (Auto) Seg Neutrophils % Seg Neuts % (Manual) Lymphocytes % (Manual) Seg Neutrophils # Seg Neutrophils # Man Nucleated RBC % Lymphocytes # (Manual) Monocytes # (Manual) PT INR Heparin Anti-Xa Level POC ABG pO2 ABG pH ABG Hemoglobin ABG Oxyhemoglobin ABG pO2 ABG HCO3 ABG O2 Saturation ABG Base Excess ABG Potassium ABG Chloride ABG Glucose Oxyhemoglobin Sodium 153 H 154 H Potassium 3.3 L 3.2 L Chloride 117.0 H 118.9 H Carbon Dioxide 20 L BUN Creatinine Glucose POC Glucose 136 H Lactic Acid Calcium 8.3 L 8.0 L AST Phosphorus Total Protein Albumin C-Reactive Protein Arterial Blood Glucose Arterial Blood Ionized Calcium Urine WBC (Auto) Crossmatch 01/11/20 01/11/20 01/11/20 07:06 08:03 11:54 WBC RBC Hgb Hct MCHC RDW Plt Count MCH Lymph % (Auto) Lymph # Lymph # (Auto) Seg Neutrophils % Seg Neuts % (Manual) Lymphocytes % (Manual) Seg Neutrophils # Seg Neutrophils # Man Nucleated RBC % Lymphocytes # (Manual) Monocytes # (Manual) PT INR Heparin Anti-Xa Level POC ABG pO2 ABG pH ABG Hemoglobin ABG Oxyhemoglobin ABG pO2 ABG HCO3 ABG O2 Saturation ABG Base Excess ABG Potassium ABG Chloride ABG Glucose Oxyhemoglobin Sodium 151 H Potassium Chloride 118.7 H Carbon Dioxide 21 L BUN Creatinine Glucose 107 H POC Glucose 118 H 164 H Lactic Acid Calcium 8.3 L AST Phosphorus Total Protein Albumin C-Reactive Protein Arterial Blood Glucose Arterial Blood Ionized Calcium Urine WBC (Auto) Crossmatch 01/11/20 01/12/20 01/12/20 16:28 00:19 05:40 WBC RBC Hgb Hct MCHC RDW Plt Count MCH Lymph % (Auto) Lymph # Lymph # (Auto) Seg Neutrophils % Seg Neuts % (Manual) Lymphocytes % (Manual) Seg Neutrophils # Seg Neutrophils # Man Nucleated RBC % Lymphocytes # (Manual) Monocytes # (Manual) PT INR Heparin Anti-Xa Level POC ABG pO2 ABG pH ABG Hemoglobin ABG Oxyhemoglobin ABG pO2 ABG HCO3 ABG O2 Saturation ABG Base Excess ABG Potassium ABG Chloride ABG Glucose Oxyhemoglobin Sodium 148 H Potassium Chloride 111.6 H Carbon Dioxide 19 L BUN Creatinine Glucose 128 H POC Glucose 132 H 179 H Lactic Acid Calcium 8.2 L AST Phosphorus Total Protein Albumin C-Reactive Protein Arterial Blood Glucose Arterial Blood Ionized Calcium Urine WBC (Auto) Crossmatch 01/12/20 01/12/20 01/12/20 06:17 11:37 17:21 WBC RBC Hgb Hct MCHC RDW Plt Count MCH Lymph % (Auto) Lymph # Lymph # (Auto) Seg Neutrophils % Seg Neuts % (Manual) Lymphocytes % (Manual) Seg Neutrophils # Seg Neutrophils # Man Nucleated RBC % Lymphocytes # (Manual) Monocytes # (Manual) PT INR Heparin Anti-Xa Level POC ABG pO2 ABG pH ABG Hemoglobin ABG Oxyhemoglobin ABG pO2 ABG HCO3 ABG O2 Saturation ABG Base Excess ABG Potassium ABG Chloride ABG Glucose Oxyhemoglobin Sodium Potassium Chloride Carbon Dioxide BUN Creatinine Glucose POC Glucose 140 H 142 H 133 H Lactic Acid Calcium AST Phosphorus Total Protein Albumin C-Reactive Protein Arterial Blood Glucose Arterial Blood Ionized Calcium Urine WBC (Auto) Crossmatch 01/12/20 01/13/20 01/13/20 23:14 05:26 07:00 WBC RBC Hgb Hct MCHC RDW Plt Count MCH Lymph % (Auto) Lymph # Lymph # (Auto) Seg Neutrophils % Seg Neuts % (Manual) Lymphocytes % (Manual) Seg Neutrophils # Seg Neutrophils # Man Nucleated RBC % Lymphocytes # (Manual) Monocytes # (Manual) PT INR Heparin Anti-Xa Level POC ABG pO2 ABG pH ABG Hemoglobin ABG Oxyhemoglobin ABG pO2 ABG HCO3 ABG O2 Saturation ABG Base Excess ABG Potassium ABG Chloride ABG Glucose Oxyhemoglobin Sodium Potassium Chloride 110.0 H Carbon Dioxide BUN Creatinine Glucose 139 H POC Glucose 135 H 162 H Lactic Acid Calcium 7.8 L AST Phosphorus Total Protein Albumin C-Reactive Protein Arterial Blood Glucose Arterial Blood Ionized Calcium Urine WBC (Auto) Crossmatch 01/13/20 01/13/20 01/13/20 12:14 17:52 21:40 WBC RBC Hgb Hct MCHC RDW Plt Count MCH Lymph % (Auto) Lymph # Lymph # (Auto) Seg Neutrophils % Seg Neuts % (Manual) Lymphocytes % (Manual) Seg Neutrophils # Seg Neutrophils # Man Nucleated RBC % Lymphocytes # (Manual) Monocytes # (Manual) PT INR Heparin Anti-Xa Level POC ABG pO2 ABG pH ABG Hemoglobin ABG Oxyhemoglobin ABG pO2 ABG HCO3 ABG O2 Saturation ABG Base Excess ABG Potassium ABG Chloride ABG Glucose Oxyhemoglobin Sodium Potassium Chloride Carbon Dioxide BUN Creatinine Glucose POC Glucose 205 H 172 H 186 H Lactic Acid Calcium AST Phosphorus Total Protein Albumin C-Reactive Protein Arterial Blood Glucose Arterial Blood Ionized Calcium Urine WBC (Auto) Crossmatch 01/14/20 01/14/20 01/14/20 04:28 11:01 11:01 WBC 14.8 H RBC 3.20 L Hgb 9.5 L Hct 28.0 L MCHC RDW Plt Count MCH Lymph % (Auto) Lymph # Lymph # (Auto) Seg Neutrophils % Seg Neuts % (Manual) Lymphocytes % (Manual) Seg Neutrophils # Seg Neutrophils # Man Nucleated RBC % Lymphocytes # (Manual) Monocytes # (Manual) PT INR Heparin Anti-Xa Level POC ABG pO2 ABG pH ABG Hemoglobin ABG Oxyhemoglobin ABG pO2 ABG HCO3 ABG O2 Saturation ABG Base Excess ABG Potassium ABG Chloride ABG Glucose Oxyhemoglobin Sodium Potassium 3.2 L Chloride Carbon Dioxide BUN Creatinine 0.4 L Glucose POC Glucose 115 H Lactic Acid Calcium 8.0 L AST Phosphorus Total Protein Albumin C-Reactive Protein Arterial Blood Glucose Arterial Blood Ionized Calcium Urine WBC (Auto) Crossmatch 01/14/20 01/14/20 01/14/20 11:01 16:33 22:32 WBC RBC Hgb Hct MCHC RDW Plt Count MCH Lymph % (Auto) Lymph # Lymph # (Auto) Seg Neutrophils % Seg Neuts % (Manual) Lymphocytes % (Manual) Seg Neutrophils # Seg Neutrophils # Man Nucleated RBC % Lymphocytes # (Manual) Monocytes # (Manual) PT 15.8 H INR 1.23 H Heparin Anti-Xa Level POC ABG pO2 ABG pH ABG Hemoglobin ABG Oxyhemoglobin ABG pO2 ABG HCO3 ABG O2 Saturation ABG Base Excess ABG Potassium ABG Chloride ABG Glucose Oxyhemoglobin Sodium Potassium Chloride Carbon Dioxide BUN Creatinine Glucose POC Glucose 58 L 188 H Lactic Acid Calcium AST Phosphorus Total Protein Albumin C-Reactive Protein Arterial Blood Glucose Arterial Blood Ionized Calcium Urine WBC (Auto) Crossmatch 01/15/20 01/15/20 01/15/20 05:35 06:19 17:17 WBC RBC Hgb Hct MCHC RDW Plt Count MCH Lymph % (Auto) Lymph # Lymph # (Auto) Seg Neutrophils % Seg Neuts % (Manual) Lymphocytes % (Manual) Seg Neutrophils # Seg Neutrophils # Man Nucleated RBC % Lymphocytes # (Manual) Monocytes # (Manual) PT INR Heparin Anti-Xa Level POC ABG pO2 ABG pH ABG Hemoglobin ABG Oxyhemoglobin ABG pO2 ABG HCO3 ABG O2 Saturation ABG Base Excess ABG Potassium ABG Chloride ABG Glucose Oxyhemoglobin Sodium Potassium Chloride Carbon Dioxide BUN Creatinine 0.5 L Glucose 104 H POC Glucose 106 H 183 H Lactic Acid Calcium 7.8 L AST Phosphorus Total Protein Albumin C-Reactive Protein Arterial Blood Glucose Arterial Blood Ionized Calcium Urine WBC (Auto) Crossmatch 01/15/20 01/16/20 01/16/20 22:29 05:35 05:59 WBC 14.7 H RBC 3.04 L Hgb 9.0 L Hct 27.0 L MCHC RDW Plt Count MCH Lymph % (Auto) 9.1 L Lymph # Lymph # (Auto) Seg Neutrophils % 87.3 H Seg Neuts % (Manual) Lymphocytes % (Manual) Seg Neutrophils # 12.9 H Seg Neutrophils # Man Nucleated RBC % Lymphocytes # (Manual) Monocytes # (Manual) PT INR Heparin Anti-Xa Level POC ABG pO2 ABG pH ABG Hemoglobin ABG Oxyhemoglobin ABG pO2 ABG HCO3 ABG O2 Saturation ABG Base Excess ABG Potassium ABG Chloride ABG Glucose Oxyhemoglobin Sodium Potassium Chloride Carbon Dioxide BUN Creatinine Glucose POC Glucose 228 H 130 H Lactic Acid Calcium AST Phosphorus Total Protein Albumin C-Reactive Protein Arterial Blood Glucose Arterial Blood Ionized Calcium Urine WBC (Auto) Crossmatch 01/16/20 01/16/20 01/16/20 09:52 12:49 17:30 WBC RBC Hgb Hct MCHC RDW Plt Count MCH Lymph % (Auto) Lymph # Lymph # (Auto) Seg Neutrophils % Seg Neuts % (Manual) Lymphocytes % (Manual) Seg Neutrophils # Seg Neutrophils # Man Nucleated RBC % Lymphocytes # (Manual) Monocytes # (Manual) PT INR Heparin Anti-Xa Level POC ABG pO2 ABG pH ABG Hemoglobin ABG Oxyhemoglobin ABG pO2 ABG HCO3 ABG O2 Saturation ABG Base Excess ABG Potassium ABG Chloride ABG Glucose Oxyhemoglobin Sodium Potassium Chloride Carbon Dioxide BUN Creatinine Glucose POC Glucose 122 H 142 H 192 H Lactic Acid Calcium AST Phosphorus Total Protein Albumin C-Reactive Protein Arterial Blood Glucose Arterial Blood Ionized Calcium Urine WBC (Auto) Crossmatch 01/16/20 01/17/20 01/17/20 23:01 08:36 08:36 WBC 12.7 H RBC 2.98 L Hgb 8.9 L Hct 26.4 L MCHC RDW Plt Count MCH Lymph % (Auto) 8.8 L Lymph # 1.1 L Lymph # (Auto) Seg Neutrophils % 86.7 H Seg Neuts % (Manual) Lymphocytes % (Manual) Seg Neutrophils # 11.0 H Seg Neutrophils # Man Nucleated RBC % Lymphocytes # (Manual) Monocytes # (Manual) PT INR Heparin Anti-Xa Level POC ABG pO2 ABG pH ABG Hemoglobin ABG Oxyhemoglobin ABG pO2 ABG HCO3 ABG O2 Saturation ABG Base Excess ABG Potassium ABG Chloride ABG Glucose Oxyhemoglobin Sodium Potassium 3.3 L D Chloride Carbon Dioxide BUN Creatinine 0.4 L Glucose POC Glucose 141 H Lactic Acid Calcium 8.1 L AST Phosphorus Total Protein 4.6 L Albumin 1.6 L C-Reactive Protein Arterial Blood Glucose Arterial Blood Ionized Calcium Urine WBC (Auto) Crossmatch 01/17/20 01/17/20 01/18/20 11:43 23:56 06:27 WBC RBC Hgb Hct MCHC RDW Plt Count MCH Lymph % (Auto) Lymph # Lymph # (Auto) Seg Neutrophils % Seg Neuts % (Manual) Lymphocytes % (Manual) Seg Neutrophils # Seg Neutrophils # Man Nucleated RBC % Lymphocytes # (Manual) Monocytes # (Manual) PT INR Heparin Anti-Xa Level POC ABG pO2 ABG pH ABG Hemoglobin ABG Oxyhemoglobin ABG pO2 ABG HCO3 ABG O2 Saturation ABG Base Excess ABG Potassium ABG Chloride ABG Glucose Oxyhemoglobin Sodium Potassium Chloride Carbon Dioxide BUN Creatinine Glucose POC Glucose 137 H 215 H 122 H Lactic Acid Calcium AST Phosphorus Total Protein Albumin C-Reactive Protein Arterial Blood Glucose Arterial Blood Ionized Calcium Urine WBC (Auto) Crossmatch 01/18/20 01/18/20 01/18/20 07:31 07:31 11:39 WBC 12.1 H RBC 3.23 L Hgb 9.7 L Hct 28.7 L MCHC RDW Plt Count MCH Lymph % (Auto) 9.2 L Lymph # 1.1 L Lymph # (Auto) Seg Neutrophils % 85.0 H Seg Neuts % (Manual) Lymphocytes % (Manual) Seg Neutrophils # 10.3 H Seg Neutrophils # Man Nucleated RBC % Lymphocytes # (Manual) Monocytes # (Manual) PT INR Heparin Anti-Xa Level POC ABG pO2 ABG pH ABG Hemoglobin ABG Oxyhemoglobin ABG pO2 ABG HCO3 ABG O2 Saturation ABG Base Excess ABG Potassium ABG Chloride ABG Glucose Oxyhemoglobin Sodium Potassium Chloride Carbon Dioxide BUN Creatinine 0.4 L Glucose 108 H POC Glucose 172 H Lactic Acid Calcium AST Phosphorus Total Protein 5.3 L Albumin 2.1 L C-Reactive Protein Arterial Blood Glucose Arterial Blood Ionized Calcium Urine WBC (Auto) Crossmatch 01/18/20 01/19/20 01/19/20 18:22 00:15 11:30 WBC RBC Hgb Hct MCHC RDW Plt Count MCH Lymph % (Auto) Lymph # Lymph # (Auto) Seg Neutrophils % Seg Neuts % (Manual) Lymphocytes % (Manual) Seg Neutrophils # Seg Neutrophils # Man Nucleated RBC % Lymphocytes # (Manual) Monocytes # (Manual) PT INR Heparin Anti-Xa Level POC ABG pO2 ABG pH ABG Hemoglobin ABG Oxyhemoglobin ABG pO2 ABG HCO3 ABG O2 Saturation ABG Base Excess ABG Potassium ABG Chloride ABG Glucose Oxyhemoglobin Sodium Potassium Chloride Carbon Dioxide BUN Creatinine Glucose POC Glucose 119 H 135 H 163 H Lactic Acid Calcium AST Phosphorus Total Protein Albumin C-Reactive Protein Arterial Blood Glucose Arterial Blood Ionized Calcium Urine WBC (Auto) Crossmatch 01/19/20 01/19/20 01/20/20 17:44 22:59 03:44 WBC 11.1 H RBC 2.77 L Hgb 8.4 L Hct 25.0 L MCHC RDW Plt Count MCH Lymph % (Auto) Lymph # Lymph # (Auto) Seg Neutrophils % 74.6 H Seg Neuts % (Manual) Lymphocytes % (Manual) Seg Neutrophils # 8.3 H Seg Neutrophils # Man Nucleated RBC % Lymphocytes # (Manual) Monocytes # (Manual) PT INR Heparin Anti-Xa Level POC ABG pO2 ABG pH ABG Hemoglobin ABG Oxyhemoglobin ABG pO2 ABG HCO3 ABG O2 Saturation ABG Base Excess ABG Potassium ABG Chloride ABG Glucose Oxyhemoglobin Sodium Potassium Chloride Carbon Dioxide BUN Creatinine Glucose POC Glucose 161 H 182 H Lactic Acid Calcium AST Phosphorus Total Protein Albumin C-Reactive Protein Arterial Blood Glucose Arterial Blood Ionized Calcium Urine WBC (Auto) Crossmatch 01/20/20 01/21/20 01/21/20 03:44 00:07 05:51 WBC RBC 2.84 L Hgb 8.6 L Hct 25.5 L MCHC RDW Plt Count 463 H MCH Lymph % (Auto) Lymph # Lymph # (Auto) Seg Neutrophils % 76.9 H Seg Neuts % (Manual) Lymphocytes % (Manual) Seg Neutrophils # 7.8 H Seg Neutrophils # Man Nucleated RBC % Lymphocytes # (Manual) Monocytes # (Manual) PT INR Heparin Anti-Xa Level POC ABG pO2 ABG pH ABG Hemoglobin ABG Oxyhemoglobin ABG pO2 ABG HCO3 ABG O2 Saturation ABG Base Excess ABG Potassium ABG Chloride ABG Glucose Oxyhemoglobin Sodium Potassium Chloride Carbon Dioxide BUN Creatinine 0.4 L Glucose POC Glucose 68 L Lactic Acid Calcium 7.9 L AST Phosphorus Total Protein 4.7 L Albumin 1.9 L C-Reactive Protein Arterial Blood Glucose Arterial Blood Ionized Calcium Urine WBC (Auto) Crossmatch 01/21/20 01/21/20 01/21/20 05:51 05:58 11:25 WBC RBC Hgb Hct MCHC RDW Plt Count MCH Lymph % (Auto) Lymph # Lymph # (Auto) Seg Neutrophils % Seg Neuts % (Manual) Lymphocytes % (Manual) Seg Neutrophils # Seg Neutrophils # Man Nucleated RBC % Lymphocytes # (Manual) Monocytes # (Manual) PT INR Heparin Anti-Xa Level POC ABG pO2 ABG pH ABG Hemoglobin ABG Oxyhemoglobin ABG pO2 ABG HCO3 ABG O2 Saturation ABG Base Excess ABG Potassium ABG Chloride ABG Glucose Oxyhemoglobin Sodium Potassium Chloride Carbon Dioxide 20 L BUN Creatinine 0.5 L Glucose 130 H POC Glucose 185 H 163 H Lactic Acid Calcium 7.6 L AST Phosphorus Total Protein 5.0 L Albumin 1.9 L C-Reactive Protein Arterial Blood Glucose Arterial Blood Ionized Calcium Urine WBC (Auto) Crossmatch 01/21/20 01/21/20 01/22/20 16:22 21:17 01:28 WBC RBC 2.60 L Hgb 8.0 L Hct 23.3 L MCHC RDW Plt Count MCH Lymph % (Auto) Lymph # Lymph # (Auto) Seg Neutrophils % 74.8 H Seg Neuts % (Manual) Lymphocytes % (Manual) Seg Neutrophils # Seg Neutrophils # Man Nucleated RBC % Lymphocytes # (Manual) Monocytes # (Manual) PT INR Heparin Anti-Xa Level POC ABG pO2 ABG pH ABG Hemoglobin ABG Oxyhemoglobin ABG pO2 ABG HCO3 ABG O2 Saturation ABG Base Excess ABG Potassium ABG Chloride ABG Glucose Oxyhemoglobin Sodium Potassium Chloride Carbon Dioxide BUN Creatinine Glucose POC Glucose 177 H 67 L Lactic Acid Calcium AST Phosphorus Total Protein Albumin C-Reactive Protein Arterial Blood Glucose Arterial Blood Ionized Calcium Urine WBC (Auto) Crossmatch 01/22/20 01/22/20 01/22/20 01:28 01:28 12:06 WBC RBC Hgb Hct MCHC RDW Plt Count MCH Lymph % (Auto) Lymph # Lymph # (Auto) Seg Neutrophils % Seg Neuts % (Manual) Lymphocytes % (Manual) Seg Neutrophils # Seg Neutrophils # Man Nucleated RBC % Lymphocytes # (Manual) Monocytes # (Manual) PT INR Heparin Anti-Xa Level POC ABG pO2 ABG pH ABG Hemoglobin ABG Oxyhemoglobin ABG pO2 ABG HCO3 ABG O2 Saturation ABG Base Excess ABG Potassium ABG Chloride ABG Glucose Oxyhemoglobin Sodium Potassium Chloride 107.6 H Carbon Dioxide BUN Creatinine 0.4 L Glucose 152 H POC Glucose 203 H 140 H Lactic Acid Calcium 7.5 L AST Phosphorus Total Protein 4.0 L Albumin 2.0 L C-Reactive Protein Arterial Blood Glucose Arterial Blood Ionized Calcium Urine WBC (Auto) Crossmatch 01/22/20 01/22/20 01/23/20 16:24 22:55 06:10 WBC RBC 2.68 L Hgb 8.6 L Hct 24.1 L MCHC 36 H RDW Plt Count MCH Lymph % (Auto) Lymph # Lymph # (Auto) Seg Neutrophils % Seg Neuts % (Manual) 71.0 H Lymphocytes % (Manual) Seg Neutrophils # Seg Neutrophils # Man Nucleated RBC % Lymphocytes # (Manual) Monocytes # (Manual) PT INR Heparin Anti-Xa Level POC ABG pO2 ABG pH ABG Hemoglobin ABG Oxyhemoglobin ABG pO2 ABG HCO3 ABG O2 Saturation ABG Base Excess ABG Potassium ABG Chloride ABG Glucose Oxyhemoglobin Sodium Potassium Chloride Carbon Dioxide BUN Creatinine Glucose POC Glucose 205 H 196 H Lactic Acid Calcium AST Phosphorus Total Protein Albumin C-Reactive Protein Arterial Blood Glucose Arterial Blood Ionized Calcium Urine WBC (Auto) Crossmatch 01/23/20 01/23/20 01/23/20 06:10 07:35 11:59 WBC RBC Hgb Hct MCHC RDW Plt Count MCH Lymph % (Auto) Lymph # Lymph # (Auto) Seg Neutrophils % Seg Neuts % (Manual) Lymphocytes % (Manual) Seg Neutrophils # Seg Neutrophils # Man Nucleated RBC % Lymphocytes # (Manual) Monocytes # (Manual) PT INR Heparin Anti-Xa Level POC ABG pO2 ABG pH ABG Hemoglobin ABG Oxyhemoglobin ABG pO2 ABG HCO3 ABG O2 Saturation ABG Base Excess ABG Potassium ABG Chloride ABG Glucose Oxyhemoglobin Sodium Potassium Chloride 108.8 H Carbon Dioxide BUN Creatinine 0.4 L Glucose 105 H POC Glucose 111 H 123 H Lactic Acid Calcium 8.0 L AST Phosphorus Total Protein 4.9 L D Albumin 2.0 L C-Reactive Protein Arterial Blood Glucose Arterial Blood Ionized Calcium Urine WBC (Auto) Crossmatch 01/23/20 01/24/20 01/24/20 22:45 11:24 16:41 WBC RBC Hgb Hct MCHC RDW Plt Count MCH Lymph % (Auto) Lymph # Lymph # (Auto) Seg Neutrophils % Seg Neuts % (Manual) Lymphocytes % (Manual) Seg Neutrophils # Seg Neutrophils # Man Nucleated RBC % Lymphocytes # (Manual) Monocytes # (Manual) PT INR Heparin Anti-Xa Level POC ABG pO2 ABG pH ABG Hemoglobin ABG Oxyhemoglobin ABG pO2 ABG HCO3 ABG O2 Saturation ABG Base Excess ABG Potassium ABG Chloride ABG Glucose Oxyhemoglobin Sodium Potassium Chloride Carbon Dioxide BUN Creatinine Glucose POC Glucose 180 H 182 H 177 H Lactic Acid Calcium AST Phosphorus Total Protein Albumin C-Reactive Protein Arterial Blood Glucose Arterial Blood Ionized Calcium Urine WBC (Auto) Crossmatch 01/24/20 01/25/20 01/25/20 23:11 07:12 11:35 WBC RBC Hgb Hct MCHC RDW Plt Count MCH Lymph % (Auto) Lymph # Lymph # (Auto) Seg Neutrophils % Seg Neuts % (Manual) Lymphocytes % (Manual) Seg Neutrophils # Seg Neutrophils # Man Nucleated RBC % Lymphocytes # (Manual) Monocytes # (Manual) PT INR Heparin Anti-Xa Level POC ABG pO2 ABG pH ABG Hemoglobin ABG Oxyhemoglobin ABG pO2 ABG HCO3 ABG O2 Saturation ABG Base Excess ABG Potassium ABG Chloride ABG Glucose Oxyhemoglobin Sodium Potassium Chloride Carbon Dioxide BUN Creatinine Glucose POC Glucose 142 H 135 H 142 H Lactic Acid Calcium AST Phosphorus Total Protein Albumin C-Reactive Protein Arterial Blood Glucose Arterial Blood Ionized Calcium Urine WBC (Auto) Crossmatch 01/25/20 01/26/20 01/26/20 16:33 00:04 11:35 WBC RBC Hgb Hct MCHC RDW Plt Count MCH Lymph % (Auto) Lymph # Lymph # (Auto) Seg Neutrophils % Seg Neuts % (Manual) Lymphocytes % (Manual) Seg Neutrophils # Seg Neutrophils # Man Nucleated RBC % Lymphocytes # (Manual) Monocytes # (Manual) PT INR Heparin Anti-Xa Level POC ABG pO2 ABG pH ABG Hemoglobin ABG Oxyhemoglobin ABG pO2 ABG HCO3 ABG O2 Saturation ABG Base Excess ABG Potassium ABG Chloride ABG Glucose Oxyhemoglobin Sodium Potassium Chloride Carbon Dioxide BUN Creatinine Glucose POC Glucose 247 H 233 H 200 H Lactic Acid Calcium AST Phosphorus Total Protein Albumin C-Reactive Protein Arterial Blood Glucose Arterial Blood Ionized Calcium Urine WBC (Auto) Crossmatch 01/26/20 01/26/20 01/26/20 16:30 16:30 17:19 WBC RBC Hgb 7.4 L Hct 22.0 L MCHC RDW Plt Count MCH Lymph % (Auto) Lymph # Lymph # (Auto) Seg Neutrophils % Seg Neuts % (Manual) Lymphocytes % (Manual) Seg Neutrophils # Seg Neutrophils # Man Nucleated RBC % Lymphocytes # (Manual) Monocytes # (Manual) PT 18.4 H INR 1.50 H Heparin Anti-Xa Level POC ABG pO2 ABG pH ABG Hemoglobin ABG Oxyhemoglobin ABG pO2 ABG HCO3 ABG O2 Saturation ABG Base Excess ABG Potassium ABG Chloride ABG Glucose Oxyhemoglobin Sodium Potassium Chloride Carbon Dioxide BUN Creatinine Glucose POC Glucose 67 L Lactic Acid Calcium AST Phosphorus Total Protein Albumin C-Reactive Protein Arterial Blood Glucose Arterial Blood Ionized Calcium Urine WBC (Auto) Crossmatch 01/26/20 01/26/20 01/27/20 20:24 21:32 00:16 WBC RBC Hgb Hct MCHC RDW Plt Count MCH Lymph % (Auto) Lymph # Lymph # (Auto) Seg Neutrophils % Seg Neuts % (Manual) Lymphocytes % (Manual) Seg Neutrophils # Seg Neutrophils # Man Nucleated RBC % Lymphocytes # (Manual) Monocytes # (Manual) PT INR Heparin Anti-Xa Level POC ABG pO2 51.8 L ABG pH ABG Hemoglobin 8.5 L ABG Oxyhemoglobin 84.7 L ABG pO2 ABG HCO3 ABG O2 Saturation ABG Base Excess ABG Potassium ABG Chloride ABG Glucose Oxyhemoglobin Sodium Potassium Chloride Carbon Dioxide BUN Creatinine Glucose POC Glucose 162 H 141 H Lactic Acid Calcium AST Phosphorus Total Protein Albumin C-Reactive Protein Arterial Blood Glucose Arterial Blood Ionized Calcium Urine WBC (Auto) Crossmatch 01/27/20 01/27/20 01/27/20 01:42 02:18 05:57 WBC RBC Hgb Hct MCHC RDW Plt Count MCH Lymph % (Auto) Lymph # Lymph # (Auto) Seg Neutrophils % Seg Neuts % (Manual) Lymphocytes % (Manual) Seg Neutrophils # Seg Neutrophils # Man Nucleated RBC % Lymphocytes # (Manual) Monocytes # (Manual) PT INR Heparin Anti-Xa Level 2.00 H POC ABG pO2 ABG pH ABG Hemoglobin ABG Oxyhemoglobin ABG pO2 ABG HCO3 ABG O2 Saturation ABG Base Excess ABG Potassium ABG Chloride ABG Glucose Oxyhemoglobin Sodium Potassium Chloride Carbon Dioxide BUN Creatinine Glucose POC Glucose 183 H 124 H Lactic Acid Calcium AST Phosphorus Total Protein Albumin C-Reactive Protein Arterial Blood Glucose Arterial Blood Ionized Calcium Urine WBC (Auto) Crossmatch 01/27/20 01/27/20 01/27/20 06:30 06:30 12:23 WBC RBC 2.75 L Hgb 8.4 L Hct 24.9 L MCHC RDW 16.0 H Plt Count 474 H MCH Lymph % (Auto) 12.7 L Lymph # Lymph # (Auto) Seg Neutrophils % 83.2 H Seg Neuts % (Manual) Lymphocytes % (Manual) Seg Neutrophils # 8.4 H Seg Neutrophils # Man Nucleated RBC % Lymphocytes # (Manual) Monocytes # (Manual) PT INR Heparin Anti-Xa Level POC ABG pO2 ABG pH ABG Hemoglobin ABG Oxyhemoglobin ABG pO2 ABG HCO3 ABG O2 Saturation ABG Base Excess ABG Potassium ABG Chloride ABG Glucose Oxyhemoglobin Sodium Potassium 3.5 L Chloride 110.2 H Carbon Dioxide BUN Creatinine 0.4 L Glucose 101 H POC Glucose 126 H Lactic Acid Calcium 7.8 L AST Phosphorus Total Protein Albumin C-Reactive Protein Arterial Blood Glucose Arterial Blood Ionized Calcium Urine WBC (Auto) Crossmatch 01/27/20 01/27/20 01/28/20 17:31 23:40 00:00 WBC RBC Hgb Hct MCHC RDW Plt Count MCH Lymph % (Auto) Lymph # Lymph # (Auto) Seg Neutrophils % Seg Neuts % (Manual) Lymphocytes % (Manual) Seg Neutrophils # Seg Neutrophils # Man Nucleated RBC % Lymphocytes # (Manual) Monocytes # (Manual) PT INR Heparin Anti-Xa Level 2.00 H POC ABG pO2 ABG pH ABG Hemoglobin ABG Oxyhemoglobin ABG pO2 ABG HCO3 ABG O2 Saturation ABG Base Excess ABG Potassium ABG Chloride ABG Glucose Oxyhemoglobin Sodium Potassium Chloride Carbon Dioxide BUN Creatinine Glucose POC Glucose 133 H 136 H Lactic Acid Calcium AST Phosphorus Total Protein Albumin C-Reactive Protein Arterial Blood Glucose Arterial Blood Ionized Calcium Urine WBC (Auto) Crossmatch 01/28/20 01/28/20 01/28/20 04:26 04:26 05:35 WBC RBC Hgb 9.6 L Hct 28.5 L MCHC RDW Plt Count 508 H MCH Lymph % (Auto) Lymph # Lymph # (Auto) Seg Neutrophils % Seg Neuts % (Manual) Lymphocytes % (Manual) Seg Neutrophils # Seg Neutrophils # Man Nucleated RBC % Lymphocytes # (Manual) Monocytes # (Manual) PT INR Heparin Anti-Xa Level POC ABG pO2 ABG pH ABG Hemoglobin ABG Oxyhemoglobin ABG pO2 ABG HCO3 ABG O2 Saturation ABG Base Excess ABG Potassium ABG Chloride ABG Glucose Oxyhemoglobin Sodium Potassium Chloride Carbon Dioxide 19 L BUN 20 H Creatinine 0.5 L Glucose 103 H POC Glucose 135 H Lactic Acid Calcium 7.9 L AST Phosphorus Total Protein Albumin C-Reactive Protein Arterial Blood Glucose Arterial Blood Ionized Calcium Urine WBC (Auto) Crossmatch 01/28/20 01/28/20 01/28/20 08:50 11:10 11:51 WBC RBC Hgb Hct MCHC RDW Plt Count MCH Lymph % (Auto) Lymph # Lymph # (Auto) Seg Neutrophils % Seg Neuts % (Manual) Lymphocytes % (Manual) Seg Neutrophils # Seg Neutrophils # Man Nucleated RBC % Lymphocytes # (Manual) Monocytes # (Manual) PT INR Heparin Anti-Xa Level 0.74 H POC ABG pO2 67.2 L ABG pH ABG Hemoglobin 9.3 L ABG Oxyhemoglobin ABG pO2 ABG HCO3 ABG O2 Saturation ABG Base Excess ABG Potassium ABG Chloride ABG Glucose Oxyhemoglobin Sodium Potassium Chloride Carbon Dioxide BUN Creatinine Glucose POC Glucose 160 H Lactic Acid Calcium AST Phosphorus Total Protein Albumin C-Reactive Protein Arterial Blood Glucose Arterial Blood Ionized Calcium Urine WBC (Auto) Crossmatch 01/28/20 01/28/20 01/29/20 17:19 23:53 03:52 WBC RBC Hgb Hct MCHC RDW Plt Count MCH Lymph % (Auto) Lymph # Lymph # (Auto) Seg Neutrophils % Seg Neuts % (Manual) Lymphocytes % (Manual) Seg Neutrophils # Seg Neutrophils # Man Nucleated RBC % Lymphocytes # (Manual) Monocytes # (Manual) PT INR Heparin Anti-Xa Level POC ABG pO2 ABG pH 7.510 H ABG Hemoglobin 7.3 L ABG Oxyhemoglobin ABG pO2 357.0 H ABG HCO3 19.6 L ABG O2 Saturation 99.6 H ABG Base Excess -2.9 L ABG Potassium ABG Chloride ABG Glucose Oxyhemoglobin Sodium Potassium Chloride Carbon Dioxide BUN Creatinine Glucose POC Glucose 177 H 142 H Lactic Acid Calcium AST Phosphorus Total Protein Albumin C-Reactive Protein Arterial Blood Glucose Arterial Blood Ionized Calcium Urine WBC (Auto) Crossmatch 01/29/20 01/29/20 01/29/20 04:58 04:58 06:01 WBC 13.1 H RBC 2.75 L Hgb 8.6 L Hct 25.6 L MCHC RDW 17.7 H Plt Count MCH Lymph % (Auto) Lymph # Lymph # (Auto) Seg Neutrophils % Seg Neuts % (Manual) 91.0 H Lymphocytes % (Manual) 6.0 L Seg Neutrophils # Seg Neutrophils # Man 11.9 H Nucleated RBC % 1.0 H Lymphocytes # (Manual) 0.8 L Monocytes # (Manual) PT INR Heparin Anti-Xa Level POC ABG pO2 ABG pH ABG Hemoglobin ABG Oxyhemoglobin ABG pO2 ABG HCO3 ABG O2 Saturation ABG Base Excess ABG Potassium ABG Chloride ABG Glucose Oxyhemoglobin Sodium 148 H Potassium 3.5 L D Chloride 113.2 H Carbon Dioxide 21 L BUN 20 H Creatinine Glucose 137 H POC Glucose 167 H Lactic Acid Calcium 8.1 L AST Phosphorus Total Protein Albumin C-Reactive Protein Arterial Blood Glucose Arterial Blood Ionized Calcium Urine WBC (Auto) Crossmatch 01/29/20 01/29/20 01/29/20 11:45 17:52 23:49 WBC RBC Hgb Hct MCHC RDW Plt Count MCH Lymph % (Auto) Lymph # Lymph # (Auto) Seg Neutrophils % Seg Neuts % (Manual) Lymphocytes % (Manual) Seg Neutrophils # Seg Neutrophils # Man Nucleated RBC % Lymphocytes # (Manual) Monocytes # (Manual) PT INR Heparin Anti-Xa Level POC ABG pO2 ABG pH ABG Hemoglobin ABG Oxyhemoglobin ABG pO2 ABG HCO3 ABG O2 Saturation ABG Base Excess ABG Potassium ABG Chloride ABG Glucose Oxyhemoglobin Sodium Potassium Chloride Carbon Dioxide BUN Creatinine Glucose POC Glucose 185 H 226 H 141 H Lactic Acid Calcium AST Phosphorus Total Protein Albumin C-Reactive Protein Arterial Blood Glucose Arterial Blood Ionized Calcium Urine WBC (Auto) Crossmatch 01/29/20 01/30/20 01/30/20 Unknown 03:24 04:00 WBC RBC Hgb 7.8 L Hct 23.5 L MCHC RDW Plt Count MCH Lymph % (Auto) Lymph # Lymph # (Auto) Seg Neutrophils % Seg Neuts % (Manual) Lymphocytes % (Manual) Seg Neutrophils # Seg Neutrophils # Man Nucleated RBC % Lymphocytes # (Manual) Monocytes # (Manual) PT INR Heparin Anti-Xa Level POC ABG pO2 ABG pH 7.485 H ABG Hemoglobin 6.7 L ABG Oxyhemoglobin ABG pO2 102.0 H ABG HCO3 ABG O2 Saturation ABG Base Excess ABG Potassium ABG Chloride ABG Glucose Oxyhemoglobin Sodium Potassium Chloride Carbon Dioxide BUN Creatinine Glucose POC Glucose Lactic Acid Calcium AST Phosphorus Total Protein Albumin C-Reactive Protein 14.80 H Arterial Blood Glucose Arterial Blood Ionized Calcium Urine WBC (Auto) Crossmatch 01/30/20 01/30/20 01/30/20 05:50 11:15 17:07 WBC RBC Hgb Hct MCHC RDW Plt Count MCH Lymph % (Auto) Lymph # Lymph # (Auto) Seg Neutrophils % Seg Neuts % (Manual) Lymphocytes % (Manual) Seg Neutrophils # Seg Neutrophils # Man Nucleated RBC % Lymphocytes # (Manual) Monocytes # (Manual) PT INR Heparin Anti-Xa Level POC ABG pO2 ABG pH ABG Hemoglobin ABG Oxyhemoglobin ABG pO2 ABG HCO3 ABG O2 Saturation ABG Base Excess ABG Potassium ABG Chloride ABG Glucose Oxyhemoglobin Sodium Potassium Chloride Carbon Dioxide BUN Creatinine Glucose POC Glucose 122 H 207 H 124 H Lactic Acid Calcium AST Phosphorus Total Protein Albumin C-Reactive Protein Arterial Blood Glucose Arterial Blood Ionized Calcium Urine WBC (Auto) Crossmatch 01/30/20 01/31/20 01/31/20 17:08 00:10 04:52 WBC RBC Hgb Hct MCHC RDW Plt Count MCH Lymph % (Auto) Lymph # Lymph # (Auto) Seg Neutrophils % Seg Neuts % (Manual) Lymphocytes % (Manual) Seg Neutrophils # Seg Neutrophils # Man Nucleated RBC % Lymphocytes # (Manual) Monocytes # (Manual) PT INR Heparin Anti-Xa Level POC ABG pO2 ABG pH 7.504 H 7.486 H ABG Hemoglobin 7.4 L 6.2 L ABG Oxyhemoglobin ABG pO2 169.2 H 121.7 H ABG HCO3 27.1 H ABG O2 Saturation 99.1 H ABG Base Excess 3.4 H ABG Potassium ABG Chloride ABG Glucose Oxyhemoglobin Sodium Potassium Chloride Carbon Dioxide BUN Creatinine Glucose POC Glucose 191 H Lactic Acid Calcium AST Phosphorus Total Protein Albumin C-Reactive Protein Arterial Blood Glucose Arterial Blood Ionized Calcium Urine WBC (Auto) Crossmatch 01/31/20 01/31/20 01/31/20 05:37 11:59 12:40 WBC RBC 2.41 L Hgb 7.5 L Hct 22.3 L MCHC RDW 22.2 H Plt Count MCH Lymph % (Auto) Lymph # Lymph # (Auto) Seg Neutrophils % Seg Neuts % (Manual) 94.0 H Lymphocytes % (Manual) 2.0 L Seg Neutrophils # Seg Neutrophils # Man 9.4 H Nucleated RBC % Lymphocytes # (Manual) 0.2 L Monocytes # (Manual) PT INR Heparin Anti-Xa Level POC ABG pO2 ABG pH ABG Hemoglobin ABG Oxyhemoglobin ABG pO2 ABG HCO3 ABG O2 Saturation ABG Base Excess ABG Potassium ABG Chloride ABG Glucose Oxyhemoglobin Sodium Potassium Chloride Carbon Dioxide BUN Creatinine Glucose POC Glucose 175 H 220 H Lactic Acid Calcium AST Phosphorus Total Protein Albumin C-Reactive Protein Arterial Blood Glucose Arterial Blood Ionized Calcium Urine WBC (Auto) Crossmatch 01/31/20 01/31/20 01/31/20 12:40 14:40 18:18 WBC RBC Hgb Hct MCHC RDW Plt Count MCH Lymph % (Auto) Lymph # Lymph # (Auto) Seg Neutrophils % Seg Neuts % (Manual) Lymphocytes % (Manual) Seg Neutrophils # Seg Neutrophils # Man Nucleated RBC % Lymphocytes # (Manual) Monocytes # (Manual) PT INR Heparin Anti-Xa Level POC ABG pO2 124.7 H ABG pH 7.542 H ABG Hemoglobin 7.8 L ABG Oxyhemoglobin ABG pO2 ABG HCO3 ABG O2 Saturation ABG Base Excess ABG Potassium ABG Chloride ABG Glucose Oxyhemoglobin Sodium 151 H Potassium 2.1 L* D Chloride 108.9 H Carbon Dioxide BUN 22 H Creatinine Glucose 194 H POC Glucose 181 H Lactic Acid Calcium 8.1 L AST Phosphorus Total Protein 4.8 L Albumin 2.3 L C-Reactive Protein Arterial Blood Glucose Arterial Blood Ionized Calcium Urine WBC (Auto) Crossmatch 02/01/20 02/01/20 02/01/20 00:11 03:14 04:32 WBC 11.9 H RBC 2.47 L Hgb 7.6 L Hct 22.8 L MCHC RDW 22.7 H Plt Count MCH Lymph % (Auto) Lymph # Lymph # (Auto) Seg Neutrophils % Seg Neuts % (Manual) 90.0 H Lymphocytes % (Manual) 5.0 L Seg Neutrophils # Seg Neutrophils # Man 10.7 H Nucleated RBC % Lymphocytes # (Manual) 0.6 L Monocytes # (Manual) PT INR Heparin Anti-Xa Level POC ABG pO2 ABG pH 7.564 H ABG Hemoglobin 7.6 L ABG Oxyhemoglobin ABG pO2 124.1 H ABG HCO3 29.6 H ABG O2 Saturation ABG Base Excess 7.0 H ABG Potassium ABG Chloride ABG Glucose Oxyhemoglobin Sodium Potassium Chloride Carbon Dioxide BUN Creatinine Glucose POC Glucose 190 H Lactic Acid Calcium AST Phosphorus Total Protein Albumin C-Reactive Protein Arterial Blood Glucose Arterial Blood Ionized Calcium Urine WBC (Auto) Crossmatch 02/01/20 02/01/20 02/01/20 04:32 05:28 11:56 WBC RBC Hgb Hct MCHC RDW Plt Count MCH Lymph % (Auto) Lymph # Lymph # (Auto) Seg Neutrophils % Seg Neuts % (Manual) Lymphocytes % (Manual) Seg Neutrophils # Seg Neutrophils # Man Nucleated RBC % Lymphocytes # (Manual) Monocytes # (Manual) PT INR Heparin Anti-Xa Level POC ABG pO2 ABG pH ABG Hemoglobin ABG Oxyhemoglobin ABG pO2 ABG HCO3 ABG O2 Saturation ABG Base Excess ABG Potassium ABG Chloride ABG Glucose Oxyhemoglobin Sodium 149 H Potassium 2.6 L* D Chloride Carbon Dioxide 33 H BUN 23 H Creatinine 0.5 L Glucose 174 H POC Glucose 187 H 195 H Lactic Acid Calcium 8.0 L AST Phosphorus 1.60 L Total Protein Albumin C-Reactive Protein Arterial Blood Glucose Arterial Blood Ionized Calcium Urine WBC (Auto) Crossmatch 02/01/20 02/01/20 02/02/20 18:15 23:35 04:33 WBC RBC Hgb Hct MCHC RDW Plt Count MCH Lymph % (Auto) Lymph # Lymph # (Auto) Seg Neutrophils % Seg Neuts % (Manual) Lymphocytes % (Manual) Seg Neutrophils # Seg Neutrophils # Man Nucleated RBC % Lymphocytes # (Manual) Monocytes # (Manual) PT INR Heparin Anti-Xa Level POC ABG pO2 ABG pH 7.549 H ABG Hemoglobin 9.8 L ABG Oxyhemoglobin ABG pO2 ABG HCO3 ABG O2 Saturation ABG Base Excess ABG Potassium ABG Chloride ABG Glucose Oxyhemoglobin Sodium Potassium Chloride Carbon Dioxide BUN Creatinine Glucose POC Glucose 226 H 252 H Lactic Acid Calcium AST Phosphorus Total Protein Albumin C-Reactive Protein Arterial Blood Glucose Arterial Blood Ionized Calcium Urine WBC (Auto) Crossmatch 09/02/02/20 02/02/20 05:25 05:25 05:40 WBC 15.5 H RBC 2.43 L Hgb 7.6 L Hct 22.9 L MCHC RDW 23.6 H Plt Count MCH Lymph % (Auto) Lymph # Lymph # (Auto) Seg Neutrophils % Seg Neuts % (Manual) 89.0 H Lymphocytes % (Manual) 3.0 L Seg Neutrophils # Seg Neutrophils # Man 13.8 H Nucleated RBC % Lymphocytes # (Manual) 0.5 L Monocytes # (Manual) 0.9 H PT INR Heparin Anti-Xa Level POC ABG pO2 ABG pH ABG Hemoglobin ABG Oxyhemoglobin ABG pO2 ABG HCO3 ABG O2 Saturation ABG Base Excess ABG Potassium ABG Chloride ABG Glucose Oxyhemoglobin Sodium Potassium 2.6 L* Chloride Carbon Dioxide 33 H BUN 26 H Creatinine Glucose 175 H POC Glucose 181 H Lactic Acid Calcium 7.9 L AST Phosphorus Total Protein Albumin C-Reactive Protein Arterial Blood Glucose Arterial Blood Ionized Calcium Urine WBC (Auto) Crossmatch 02/02/20 02/02/20 02/02/20 11:55 14:45 17:18 WBC RBC Hgb Hct MCHC RDW Plt Count MCH Lymph % (Auto) Lymph # Lymph # (Auto) Seg Neutrophils % Seg Neuts % (Manual) Lymphocytes % (Manual) Seg Neutrophils # Seg Neutrophils # Man Nucleated RBC % Lymphocytes # (Manual) Monocytes # (Manual) PT INR Heparin Anti-Xa Level POC ABG pO2 ABG pH 7.56 H ABG Hemoglobin 7.6 L ABG Oxyhemoglobin ABG pO2 ABG HCO3 ABG O2 Saturation ABG Base Excess ABG Potassium ABG Chloride ABG Glucose Oxyhemoglobin Sodium Potassium Chloride Carbon Dioxide BUN Creatinine Glucose POC Glucose 226 H 227 H Lactic Acid Calcium AST Phosphorus Total Protein Albumin C-Reactive Protein Arterial Blood Glucose Arterial Blood Ionized Calcium Urine WBC (Auto) Crossmatch 02/02/20 02/03/20 02/03/20 20:54 00:02 05:14 WBC 18.7 H RBC 2.45 L Hgb 7.6 L Hct 23.2 L MCHC RDW 23.5 H Plt Count MCH Lymph % (Auto) Lymph # Lymph # (Auto) Seg Neutrophils % Seg Neuts % (Manual) 94.0 H Lymphocytes % (Manual) 3.0 L Seg Neutrophils # Seg Neutrophils # Man 17.6 H Nucleated RBC % Lymphocytes # (Manual) 0.6 L Monocytes # (Manual) PT INR Heparin Anti-Xa Level POC ABG pO2 ABG pH ABG Hemoglobin ABG Oxyhemoglobin ABG pO2 ABG HCO3 ABG O2 Saturation ABG Base Excess ABG Potassium ABG Chloride ABG Glucose Oxyhemoglobin Sodium Potassium 3.2 L D Chloride Carbon Dioxide BUN Creatinine Glucose POC Glucose 204 H Lactic Acid Calcium AST Phosphorus Total Protein Albumin C-Reactive Protein Arterial Blood Glucose Arterial Blood Ionized Calcium Urine WBC (Auto) Crossmatch 02/03/20 02/03/20 02/03/20 05:14 05:14 05:20 WBC RBC Hgb Hct MCHC RDW Plt Count MCH Lymph % (Auto) Lymph # Lymph # (Auto) Seg Neutrophils % Seg Neuts % (Manual) Lymphocytes % (Manual) Seg Neutrophils # Seg Neutrophils # Man Nucleated RBC % Lymphocytes # (Manual) Monocytes # (Manual) PT INR Heparin Anti-Xa Level POC ABG pO2 ABG pH ABG Hemoglobin ABG Oxyhemoglobin ABG pO2 ABG HCO3 ABG O2 Saturation ABG Base Excess ABG Potassium ABG Chloride ABG Glucose Oxyhemoglobin Sodium Potassium 3.1 L Chloride Carbon Dioxide 33 H BUN 29 H Creatinine 0.5 L Glucose 160 H POC Glucose 146 H Lactic Acid Calcium 7.9 L AST Phosphorus 2.30 L Total Protein 4.8 L Albumin 2.4 L C-Reactive Protein Arterial Blood Glucose Arterial Blood Ionized Calcium Urine WBC (Auto) Crossmatch 02/03/20 02/03/20 02/03/20 12:35 18:14 23:26 WBC RBC Hgb Hct MCHC RDW Plt Count MCH Lymph % (Auto) Lymph # Lymph # (Auto) Seg Neutrophils % Seg Neuts % (Manual) Lymphocytes % (Manual) Seg Neutrophils # Seg Neutrophils # Man Nucleated RBC % Lymphocytes # (Manual) Monocytes # (Manual) PT INR Heparin Anti-Xa Level POC ABG pO2 ABG pH ABG Hemoglobin ABG Oxyhemoglobin ABG pO2 ABG HCO3 ABG O2 Saturation ABG Base Excess ABG Potassium ABG Chloride ABG Glucose Oxyhemoglobin Sodium Potassium Chloride Carbon Dioxide BUN Creatinine Glucose POC Glucose 219 H 248 H 173 H Lactic Acid Calcium AST Phosphorus Total Protein Albumin C-Reactive Protein Arterial Blood Glucose Arterial Blood Ionized Calcium Urine WBC (Auto) Crossmatch 02/04/20 02/04/20 02/04/20 05:34 05:36 06:51 WBC RBC Hgb Hct MCHC RDW Plt Count MCH Lymph % (Auto) Lymph # Lymph # (Auto) Seg Neutrophils % Seg Neuts % (Manual) Lymphocytes % (Manual) Seg Neutrophils # Seg Neutrophils # Man Nucleated RBC % Lymphocytes # (Manual) Monocytes # (Manual) PT INR Heparin Anti-Xa Level POC ABG pO2 ABG pH ABG Hemoglobin ABG Oxyhemoglobin ABG pO2 ABG HCO3 ABG O2 Saturation ABG Base Excess ABG Potassium ABG Chloride ABG Glucose Oxyhemoglobin Sodium Potassium Chloride Carbon Dioxide BUN Creatinine Glucose POC Glucose 56 L 64 L 127 H Lactic Acid Calcium AST Phosphorus Total Protein Albumin C-Reactive Protein Arterial Blood Glucose Arterial Blood Ionized Calcium Urine WBC (Auto) Crossmatch 02/04/20 02/04/20 02/04/20 11:57 13:42 13:53 WBC 19.2 H RBC 2.48 L Hgb 7.8 L Hct 23.5 L MCHC RDW 24.2 H Plt Count MCH Lymph % (Auto) Lymph # Lymph # (Auto) Seg Neutrophils % Seg Neuts % (Manual) 97.0 H Lymphocytes % (Manual) 2.0 L Seg Neutrophils # Seg Neutrophils # Man 18.6 H Nucleated RBC % Lymphocytes # (Manual) 0.4 L Monocytes # (Manual) PT INR Heparin Anti-Xa Level POC ABG pO2 118.2 H ABG pH 7.525 H ABG Hemoglobin 8.7 L ABG Oxyhemoglobin ABG pO2 ABG HCO3 ABG O2 Saturation ABG Base Excess ABG Potassium 2.8 L ABG Chloride ABG Glucose 185 H Oxyhemoglobin Sodium Potassium Chloride Carbon Dioxide BUN Creatinine Glucose POC Glucose 224 H Lactic Acid Calcium AST Phosphorus Total Protein Albumin C-Reactive Protein Arterial Blood Glucose 185 H Arterial Blood Ionized Calcium 4.5 L Urine WBC (Auto) Crossmatch 02/04/20 02/04/20 02/04/20 13:53 18:15 23:35 WBC RBC Hgb Hct MCHC RDW Plt Count MCH Lymph % (Auto) Lymph # Lymph # (Auto) Seg Neutrophils % Seg Neuts % (Manual) Lymphocytes % (Manual) Seg Neutrophils # Seg Neutrophils # Man Nucleated RBC % Lymphocytes # (Manual) Monocytes # (Manual) PT INR Heparin Anti-Xa Level POC ABG pO2 ABG pH ABG Hemoglobin ABG Oxyhemoglobin ABG pO2 ABG HCO3 ABG O2 Saturation ABG Base Excess ABG Potassium ABG Chloride ABG Glucose Oxyhemoglobin Sodium 147 H Potassium 2.8 L* Chloride Carbon Dioxide 38 H BUN 33 H Creatinine 0.5 L Glucose 202 H POC Glucose 215 H 197 H Lactic Acid Calcium AST Phosphorus Total Protein Albumin C-Reactive Protein Arterial Blood Glucose Arterial Blood Ionized Calcium Urine WBC (Auto) Crossmatch 02/05/20 02/05/20 02/05/20 01:03 04:00 04:00 WBC 26.7 H RBC 2.59 L Hgb 8.1 L Hct 24.6 L MCHC RDW 24.1 H Plt Count MCH Lymph % (Auto) 1.6 L Lymph # Lymph # (Auto) 0.4 L Seg Neutrophils % Seg Neuts % (Manual) Lymphocytes % (Manual) Seg Neutrophils # 25.9 H Seg Neutrophils # Man Nucleated RBC % Lymphocytes # (Manual) Monocytes # (Manual) PT INR Heparin Anti-Xa Level POC ABG pO2 ABG pH ABG Hemoglobin 7.1 L ABG Oxyhemoglobin ABG pO2 50.7 L ABG HCO3 29.6 H ABG O2 Saturation 82.7 L ABG Base Excess 4.8 H ABG Potassium ABG Chloride ABG Glucose Oxyhemoglobin 81.0 L Sodium 146 H Potassium Chloride Carbon Dioxide 32 H BUN 35 H Creatinine 0.5 L Glucose 226 H POC Glucose Lactic Acid Calcium AST Phosphorus Total Protein 5.1 L Albumin 2.2 L C-Reactive Protein Arterial Blood Glucose Arterial Blood Ionized Calcium Urine WBC (Auto) Crossmatch 02/05/20 02/05/20 02/06/20 05:32 17:56 00:19 WBC RBC Hgb Hct MCHC RDW Plt Count MCH Lymph % (Auto) Lymph # Lymph # (Auto) Seg Neutrophils % Seg Neuts % (Manual) Lymphocytes % (Manual) Seg Neutrophils # Seg Neutrophils # Man Nucleated RBC % Lymphocytes # (Manual) Monocytes # (Manual) PT INR Heparin Anti-Xa Level POC ABG pO2 ABG pH ABG Hemoglobin ABG Oxyhemoglobin ABG pO2 ABG HCO3 ABG O2 Saturation ABG Base Excess ABG Potassium ABG Chloride ABG Glucose Oxyhemoglobin Sodium Potassium Chloride Carbon Dioxide BUN Creatinine Glucose POC Glucose 239 H 175 H 309 H Lactic Acid Calcium AST Phosphorus Total Protein Albumin C-Reactive Protein Arterial Blood Glucose Arterial Blood Ionized Calcium Urine WBC (Auto) Crossmatch 1002/06/20 02/06/20 04:26 04:27 05:11 WBC RBC Hgb Hct MCHC RDW Plt Count MCH Lymph % (Auto) Lymph # Lymph # (Auto) Seg Neutrophils % Seg Neuts % (Manual) Lymphocytes % (Manual) Seg Neutrophils # Seg Neutrophils # Man Nucleated RBC % Lymphocytes # (Manual) Monocytes # (Manual) PT INR Heparin Anti-Xa Level POC ABG pO2 175.3 H 157.2 H ABG pH 7.502 H 7.551 H ABG Hemoglobin 10.8 L 7.3 L ABG Oxyhemoglobin 98.3 H ABG pO2 ABG HCO3 ABG O2 Saturation ABG Base Excess ABG Potassium 3.3 L ABG Chloride 109.0 H ABG Glucose 148 H Oxyhemoglobin Sodium 148 H Potassium 3.0 L Chloride 107.3 H Carbon Dioxide 33 H BUN 33 H Creatinine 0.5 L Glucose 283 H POC Glucose Lactic Acid Calcium 7.9 L AST Phosphorus Total Protein 3.6 L D Albumin 1.2 L C-Reactive Protein Arterial Blood Glucose 148 H Arterial Blood Ionized Calcium Urine WBC (Auto) Crossmatch 02/06/20 02/06/20 02/06/20 05:40 08:45 11:52 WBC 16.3 H RBC 2.12 L Hgb 6.6 L Hct 20.3 L MCHC RDW 24.4 H Plt Count MCH Lymph % (Auto) Lymph # Lymph # (Auto) Seg Neutrophils % Seg Neuts % (Manual) 98.0 H Lymphocytes % (Manual) 1.0 L Seg Neutrophils # Seg Neutrophils # Man 16.0 H Nucleated RBC % Lymphocytes # (Manual) 0.2 L Monocytes # (Manual) PT INR Heparin Anti-Xa Level POC ABG pO2 ABG pH ABG Hemoglobin ABG Oxyhemoglobin ABG pO2 ABG HCO3 ABG O2 Saturation ABG Base Excess ABG Potassium ABG Chloride ABG Glucose Oxyhemoglobin Sodium Potassium Chloride Carbon Dioxide BUN Creatinine Glucose POC Glucose 347 H 132 H Lactic Acid Calcium AST Phosphorus Total Protein Albumin C-Reactive Protein Arterial Blood Glucose Arterial Blood Ionized Calcium Urine WBC (Auto) Crossmatch 02/06/20 02/07/20 02/07/20 18:26 00:08 05:41 WBC RBC Hgb Hct MCHC RDW Plt Count MCH Lymph % (Auto) Lymph # Lymph # (Auto) Seg Neutrophils % Seg Neuts % (Manual) Lymphocytes % (Manual) Seg Neutrophils # Seg Neutrophils # Man Nucleated RBC % Lymphocytes # (Manual) Monocytes # (Manual) PT INR Heparin Anti-Xa Level POC ABG pO2 ABG pH ABG Hemoglobin ABG Oxyhemoglobin ABG pO2 ABG HCO3 ABG O2 Saturation ABG Base Excess ABG Potassium ABG Chloride ABG Glucose Oxyhemoglobin Sodium Potassium Chloride Carbon Dioxide BUN Creatinine Glucose POC Glucose 114 H 111 H 164 H Lactic Acid Calcium AST Phosphorus Total Protein Albumin C-Reactive Protein Arterial Blood Glucose Arterial Blood Ionized Calcium Urine WBC (Auto) Crossmatch 02/07/20 02/07/20 02/07/20 11:49 17:56 23:27 WBC RBC Hgb Hct MCHC RDW Plt Count MCH Lymph % (Auto) Lymph # Lymph # (Auto) Seg Neutrophils % Seg Neuts % (Manual) Lymphocytes % (Manual) Seg Neutrophils # Seg Neutrophils # Man Nucleated RBC % Lymphocytes # (Manual) Monocytes # (Manual) PT INR Heparin Anti-Xa Level POC ABG pO2 ABG pH ABG Hemoglobin ABG Oxyhemoglobin ABG pO2 ABG HCO3 ABG O2 Saturation ABG Base Excess ABG Potassium ABG Chloride ABG Glucose Oxyhemoglobin Sodium Potassium Chloride Carbon Dioxide BUN Creatinine Glucose POC Glucose 146 H 140 H 164 H Lactic Acid Calcium AST Phosphorus Total Protein Albumin C-Reactive Protein Arterial Blood Glucose Arterial Blood Ionized Calcium Urine WBC (Auto) Crossmatch 02/08/20 02/08/20 02/08/20 03:55 04:46 04:46 WBC RBC 2.30 L Hgb 7.3 L Hct 22.0 L MCHC RDW 23.9 H Plt Count MCH Lymph % (Auto) 8.5 L Lymph # Lymph # (Auto) 0.8 L Seg Neutrophils % 87.6 H Seg Neuts % (Manual) Lymphocytes % (Manual) Seg Neutrophils # 8.7 H Seg Neutrophils # Man Nucleated RBC % Lymphocytes # (Manual) Monocytes # (Manual) PT INR Heparin Anti-Xa Level POC ABG pO2 112.8 H ABG pH 7.511 H ABG Hemoglobin 7.8 L ABG Oxyhemoglobin ABG pO2 ABG HCO3 ABG O2 Saturation ABG Base Excess ABG Potassium 2.9 L ABG Chloride ABG Glucose 112 H Oxyhemoglobin Sodium Potassium 3.1 L Chloride Carbon Dioxide 31 H BUN 29 H Creatinine 0.3 L Glucose 108 H POC Glucose Lactic Acid Calcium AST Phosphorus Total Protein Albumin C-Reactive Protein Arterial Blood Glucose 112 H Arterial Blood Ionized Calcium Urine WBC (Auto) Crossmatch 02/08/20 02/08/20 02/08/20 05:31 10:15 12:10 WBC RBC Hgb Hct MCHC RDW Plt Count MCH Lymph % (Auto) Lymph # Lymph # (Auto) Seg Neutrophils % Seg Neuts % (Manual) Lymphocytes % (Manual) Seg Neutrophils # Seg Neutrophils # Man Nucleated RBC % Lymphocytes # (Manual) Monocytes # (Manual) PT INR Heparin Anti-Xa Level POC ABG pO2 ABG pH ABG Hemoglobin ABG Oxyhemoglobin ABG pO2 ABG HCO3 ABG O2 Saturation ABG Base Excess ABG Potassium ABG Chloride ABG Glucose Oxyhemoglobin Sodium Potassium Chloride Carbon Dioxide BUN Creatinine Glucose POC Glucose 117 H 164 H 170 H Lactic Acid Calcium AST Phosphorus Total Protein Albumin C-Reactive Protein Arterial Blood Glucose Arterial Blood Ionized Calcium Urine WBC (Auto) Crossmatch 02/08/20 02/08/20 02/09/20 12:23 23:50 03:04 WBC RBC Hgb Hct MCHC RDW Plt Count MCH Lymph % (Auto) Lymph # Lymph # (Auto) Seg Neutrophils % Seg Neuts % (Manual) Lymphocytes % (Manual) Seg Neutrophils # Seg Neutrophils # Man Nucleated RBC % Lymphocytes # (Manual) Monocytes # (Manual) PT INR Heparin Anti-Xa Level POC ABG pO2 ABG pH 7.501 H ABG Hemoglobin 7.5 L ABG Oxyhemoglobin ABG pO2 ABG HCO3 ABG O2 Saturation ABG Base Excess ABG Potassium ABG Chloride ABG Glucose 143 H Oxyhemoglobin Sodium Potassium Chloride Carbon Dioxide BUN Creatinine Glucose POC Glucose 164 H 126 H Lactic Acid Calcium AST Phosphorus Total Protein Albumin C-Reactive Protein Arterial Blood Glucose 143 H Arterial Blood Ionized Calcium Urine WBC (Auto) Crossmatch 02/09/20 02/09/20 02/09/20 05:57 08:00 12:39 WBC RBC Hgb Hct MCHC RDW Plt Count MCH Lymph % (Auto) Lymph # Lymph # (Auto) Seg Neutrophils % Seg Neuts % (Manual) Lymphocytes % (Manual) Seg Neutrophils # Seg Neutrophils # Man Nucleated RBC % Lymphocytes # (Manual) Monocytes # (Manual) PT INR Heparin Anti-Xa Level POC ABG pO2 ABG pH ABG Hemoglobin ABG Oxyhemoglobin ABG pO2 ABG HCO3 ABG O2 Saturation ABG Base Excess ABG Potassium ABG Chloride ABG Glucose Oxyhemoglobin Sodium Potassium 3.3 L Chloride Carbon Dioxide 34 H BUN 27 H Creatinine 0.4 L Glucose 127 H POC Glucose 160 H 154 H Lactic Acid Calcium 8.2 L AST Phosphorus Total Protein Albumin C-Reactive Protein Arterial Blood Glucose Arterial Blood Ionized Calcium Urine WBC (Auto) Crossmatch 02/09/20 02/09/20 02/09/20 18:17 23:43 Unknown WBC RBC 2.15 L Hgb 7.0 L Hct 20.8 L MCHC RDW 23.3 H Plt Count MCH 33 H Lymph % (Auto) Lymph # Lymph # (Auto) Seg Neutrophils % Seg Neuts % (Manual) Lymphocytes % (Manual) Seg Neutrophils # Seg Neutrophils # Man Nucleated RBC % Lymphocytes # (Manual) Monocytes # (Manual) PT INR Heparin Anti-Xa Level POC ABG pO2 ABG pH ABG Hemoglobin ABG Oxyhemoglobin ABG pO2 ABG HCO3 ABG O2 Saturation ABG Base Excess ABG Potassium ABG Chloride ABG Glucose Oxyhemoglobin Sodium Potassium Chloride Carbon Dioxide BUN Creatinine Glucose POC Glucose 152 H 177 H Lactic Acid Calcium AST Phosphorus Total Protein Albumin C-Reactive Protein Arterial Blood Glucose Arterial Blood Ionized Calcium Urine WBC (Auto) Crossmatch 02/10/20 02/10/20 02/10/20 04:38 05:24 11:44 WBC RBC Hgb Hct MCHC RDW Plt Count MCH Lymph % (Auto) Lymph # Lymph # (Auto) Seg Neutrophils % Seg Neuts % (Manual) Lymphocytes % (Manual) Seg Neutrophils # Seg Neutrophils # Man Nucleated RBC % Lymphocytes # (Manual) Monocytes # (Manual) PT INR Heparin Anti-Xa Level POC ABG pO2 ABG pH 7.502 H ABG Hemoglobin 6.2 L ABG Oxyhemoglobin ABG pO2 136.0 H ABG HCO3 29.3 H ABG O2 Saturation ABG Base Excess 5.7 H ABG Potassium ABG Chloride ABG Glucose Oxyhemoglobin Sodium Potassium Chloride Carbon Dioxide BUN Creatinine Glucose POC Glucose 113 H 176 H Lactic Acid Calcium AST Phosphorus Total Protein Albumin C-Reactive Protein Arterial Blood Glucose Arterial Blood Ionized Calcium Urine WBC (Auto) Crossmatch 02/10/20 02/11/20 02/11/20 23:42 03:43 04:12 WBC RBC 2.12 L Hgb 6.9 L Hct 20.6 L MCHC RDW 23.4 H Plt Count MCH 33 H Lymph % (Auto) Lymph # Lymph # (Auto) Seg Neutrophils % 84.7 H Seg Neuts % (Manual) 83.0 H Lymphocytes % (Manual) 11.0 L Seg Neutrophils # Seg Neutrophils # Man Nucleated RBC % Lymphocytes # (Manual) 1.0 L Monocytes # (Manual) PT INR Heparin Anti-Xa Level POC ABG pO2 112.6 H ABG pH 7.480 H ABG Hemoglobin 7.2 L ABG Oxyhemoglobin ABG pO2 ABG HCO3 ABG O2 Saturation ABG Base Excess ABG Potassium ABG Chloride ABG Glucose 154 H Oxyhemoglobin Sodium Potassium Chloride Carbon Dioxide BUN Creatinine Glucose POC Glucose 149 H Lactic Acid Calcium AST Phosphorus Total Protein Albumin C-Reactive Protein Arterial Blood Glucose 154 H Arterial Blood Ionized Calcium Urine WBC (Auto) Crossmatch 02/11/20 02/11/20 02/11/20 04:12 05:50 08:22 WBC RBC Hgb Hct MCHC RDW Plt Count MCH Lymph % (Auto) Lymph # Lymph # (Auto) Seg Neutrophils % Seg Neuts % (Manual) Lymphocytes % (Manual) Seg Neutrophils # Seg Neutrophils # Man Nucleated RBC % Lymphocytes # (Manual) Monocytes # (Manual) PT INR Heparin Anti-Xa Level POC ABG pO2 ABG pH ABG Hemoglobin ABG Oxyhemoglobin ABG pO2 ABG HCO3 ABG O2 Saturation ABG Base Excess ABG Potassium ABG Chloride ABG Glucose Oxyhemoglobin Sodium 146 H Potassium Chloride Carbon Dioxide BUN 24 H Creatinine 0.4 L Glucose 168 H POC Glucose 190 H Lactic Acid Calcium 8.0 L AST Phosphorus Total Protein Albumin C-Reactive Protein Arterial Blood Glucose Arterial Blood Ionized Calcium Urine WBC (Auto) Crossmatch See Detail 02/11/20 02/11/20 02/11/20 11:41 17:33 23:40 WBC RBC Hgb Hct MCHC RDW Plt Count MCH Lymph % (Auto) Lymph # Lymph # (Auto) Seg Neutrophils % Seg Neuts % (Manual) Lymphocytes % (Manual) Seg Neutrophils # Seg Neutrophils # Man Nucleated RBC % Lymphocytes # (Manual) Monocytes # (Manual) PT INR Heparin Anti-Xa Level POC ABG pO2 ABG pH ABG Hemoglobin ABG Oxyhemoglobin ABG pO2 ABG HCO3 ABG O2 Saturation ABG Base Excess ABG Potassium ABG Chloride ABG Glucose Oxyhemoglobin Sodium Potassium Chloride Carbon Dioxide BUN Creatinine Glucose POC Glucose 260 H 132 H 54 L Lactic Acid Calcium AST Phosphorus Total Protein Albumin C-Reactive Protein Arterial Blood Glucose Arterial Blood Ionized Calcium Urine WBC (Auto) Crossmatch 02/12/20 02/12/20 02/12/20 05:16 06:45 11:48 WBC RBC Hgb 8.6 L Hct 25.2 L MCHC RDW Plt Count MCH Lymph % (Auto) Lymph # Lymph # (Auto) Seg Neutrophils % Seg Neuts % (Manual) Lymphocytes % (Manual) Seg Neutrophils # Seg Neutrophils # Man Nucleated RBC % Lymphocytes # (Manual) Monocytes # (Manual) PT INR Heparin Anti-Xa Level POC ABG pO2 ABG pH ABG Hemoglobin ABG Oxyhemoglobin ABG pO2 ABG HCO3 ABG O2 Saturation ABG Base Excess ABG Potassium ABG Chloride ABG Glucose Oxyhemoglobin Sodium Potassium Chloride Carbon Dioxide BUN Creatinine Glucose POC Glucose 127 H 163 H Lactic Acid Calcium AST Phosphorus Total Protein Albumin C-Reactive Protein Arterial Blood Glucose Arterial Blood Ionized Calcium Urine WBC (Auto) Crossmatch 02/12/20 02/12/20 02/13/20 17:25 23:53 04:30 WBC RBC Hgb Hct MCHC RDW Plt Count MCH Lymph % (Auto) Lymph # Lymph # (Auto) Seg Neutrophils % Seg Neuts % (Manual) Lymphocytes % (Manual) Seg Neutrophils # Seg Neutrophils # Man Nucleated RBC % Lymphocytes # (Manual) Monocytes # (Manual) PT INR Heparin Anti-Xa Level POC ABG pO2 ABG pH 7.463 H ABG Hemoglobin ABG Oxyhemoglobin ABG pO2 98.4 H ABG HCO3 27.7 H ABG O2 Saturation ABG Base Excess 3.7 H ABG Potassium ABG Chloride ABG Glucose Oxyhemoglobin Sodium Potassium Chloride Carbon Dioxide BUN Creatinine Glucose POC Glucose 152 H 140 H Lactic Acid Calcium AST Phosphorus Total Protein Albumin C-Reactive Protein Arterial Blood Glucose Arterial Blood Ionized Calcium Urine WBC (Auto) Crossmatch 02/13/20 02/13/20 02/13/20 04:45 04:45 05:19 WBC RBC 2.73 L Hgb 8.7 L Hct 25.6 L MCHC RDW 21.3 H Plt Count MCH Lymph % (Auto) 12.0 L Lymph # Lymph # (Auto) 1.0 L Seg Neutrophils % 82.5 H Seg Neuts % (Manual) Lymphocytes % (Manual) Seg Neutrophils # Seg Neutrophils # Man Nucleated RBC % Lymphocytes # (Manual) Monocytes # (Manual) PT INR Heparin Anti-Xa Level POC ABG pO2 ABG pH ABG Hemoglobin ABG Oxyhemoglobin ABG pO2 ABG HCO3 ABG O2 Saturation ABG Base Excess ABG Potassium ABG Chloride ABG Glucose Oxyhemoglobin Sodium Potassium 3.4 L Chloride Carbon Dioxide 31 H BUN 24 H Creatinine 0.3 L Glucose 122 H POC Glucose 127 H Lactic Acid Calcium 8.0 L AST Phosphorus Total Protein 4.2 L Albumin 2.0 L C-Reactive Protein Arterial Blood Glucose Arterial Blood Ionized Calcium Urine WBC (Auto) Crossmatch 02/13/20 02/14/20 02/14/20 23:08 04:26 04:26 WBC RBC 2.74 L Hgb 8.7 L Hct 25.8 L MCHC RDW 21.3 H Plt Count MCH Lymph % (Auto) 13.2 L Lymph # Lymph # (Auto) Seg Neutrophils % 81.4 H Seg Neuts % (Manual) Lymphocytes % (Manual) Seg Neutrophils # 8.4 H Seg Neutrophils # Man Nucleated RBC % Lymphocytes # (Manual) Monocytes # (Manual) PT INR Heparin Anti-Xa Level POC ABG pO2 ABG pH ABG Hemoglobin ABG Oxyhemoglobin ABG pO2 ABG HCO3 ABG O2 Saturation ABG Base Excess ABG Potassium ABG Chloride ABG Glucose Oxyhemoglobin Sodium Potassium 3.4 L Chloride 107.6 H Carbon Dioxide BUN 20 H Creatinine 0.3 L Glucose 170 H POC Glucose 148 H Lactic Acid Calcium 8.2 L AST Phosphorus Total Protein Albumin C-Reactive Protein Arterial Blood Glucose Arterial Blood Ionized Calcium Urine WBC (Auto) Crossmatch 02/14/20 05:05 WBC RBC Hgb Hct MCHC RDW Plt Count MCH Lymph % (Auto) Lymph # Lymph # (Auto) Seg Neutrophils % Seg Neuts % (Manual) Lymphocytes % (Manual) Seg Neutrophils # Seg Neutrophils # Man Nucleated RBC % Lymphocytes # (Manual) Monocytes # (Manual) PT INR Heparin Anti-Xa Level POC ABG pO2 ABG pH ABG Hemoglobin ABG Oxyhemoglobin ABG pO2 ABG HCO3 ABG O2 Saturation ABG Base Excess ABG Potassium ABG Chloride ABG Glucose Oxyhemoglobin Sodium Potassium Chloride Carbon Dioxide BUN Creatinine Glucose POC Glucose 182 H Lactic Acid Calcium AST Phosphorus Total Protein Albumin C-Reactive Protein Arterial Blood Glucose Arterial Blood Ionized Calcium Urine WBC (Auto) Crossmatch Chest x-ray: image reviewed Allied health notes reviewed: RT
[2020-02-14] MEDS: traZODone 50 MG TAB PO SCH (23:02)
[2020-02-14] MEDS: DONEPEZIL 10 MG TAB PO SCH (23:04)
[2020-02-14] MEDS: MIRTAZAPINE 15 MG TAB PO SCH (23:04)
[2020-02-15] MEDS: PIPERACIL/TAZOBACTA 4.5/NS 100 4.5 GM/100 ML VIAL IV SCH ×3 (06:07→22:32)
[2020-02-15] MEDS: INSULIN REGULAR, HUMAN 100 UNIT/ML 3ML VIAL SUB-Q SCH ×4 (06:10→17:37)
--- NOTE | 2020-02-15 08:20 | Progress Note ---
Assessment and Plan Assessment and plan: --Right upper extremity massive edema: patient has a line DC the IV access from right upper extremity, elevate the little Check venous Doppler to rule out DVT --s/p PEA arrest night of 01/28/2020 and 02/05/2020 s/p CPR per ACLS protocol --Anoxic/hypoxic brain injury[status post PEA cardiac arrest]; supportive care --Acute hypoxic respiratory failure; intubated. vent dependent Status post tracheostomy, 02/13/2020 per surgery, trach care, ventilatory support status post extubation 02/02/2020 but had to be reintubated on 02/04 --Shock/ septic shock; monitor off Levophed --Unstageable sacral decubitus ulcer, infected/POA s/p wound debridement on 01/15. Wound vac in place ID recommend zosyn 4.5 g IV q8h total 6 weeks stop date 02/27/2020 --Sepsis /Proteus bacteremia: Due to sacral decubitus Long-term Zosyn per ID stop date 02/27/2020[total 6 weeks] --Bilateral upper extremity edema and swelling R>L Lateral venous Doppler of the upper extremity to rule out DVT Support and elevate the limbs --Hypokalemia; 30 mEq KCl via PEG Follow electrolytes -- Hypernatremia; resolved --Anemia ; unknown etiology , no external evidence of bleeding Received 1 unit PRBC transfusion , hemoglobin improved from 6.9-8.6-8.7 -- Uncontrolled diabetes mellitus; Blood sugars well controlled, A1c 5.3 Accu-Chek sliding scale coverage long-acting insulin as needed DM management with SSI, TF -- Hydropneumothorax, not POA Patient developed hydropneumothorax on 01/15. Surgery evaluated s/p chest tube placed on 01/15. Improved, s/p chest tube removed 01/22, extubated 02/02/2020 Reintubated 02/05/2020 , tracheostomy 02/13/2020 -- large Left pleural effusion 01/25 01/27; s/p bronchoscopy and Therapeutic suctioning of the lungs done by receiving weigher -- UTI (urinary tract infection)Completed antibiotics --h/o Bilateral pulmonary embolism 7 months ago Repeat CTA chest and LE doppler showed no acute PE or DVT, eliquis stopped -- Dementia: Continue donepezil --Severe protein-calorie malnutrition PEG placed 01/13. PEG feeds per protocol --DVT prophylaxis; SCDs Closely monitor the patient and adjust management as needed Plan of care reviewed with the patient and her nurse The high probability of a clinically significant, sudden or life threatening deterioration of the [Respiratory, FIELD TRAINING AGENT, CVs] system(s) required my full and direct attention, intervention and personal management. The aggregate critical care time was [32] minutes. This time is in addition to time spent performing reported procedures but includes the following: [x] Data Review and interpretation [x] Patient assessment and monitoring of vital signs [x] Documentation [x] Medication orders and management . Patient currently with PSV/CPAP FiO2 50%, PEEP of 6 and pressure support of 10. Continue PSV trials as tolerated and wean per pulmonary. Recall ID consultation. 02/08/2020. Patient with Proteus bacteremia likely from sacral decubitus. Continue Zosyn 4.5 g IV every 8 hours until stop date of 02/26. Patient still on mechanical ventilation AC mode rate 12, tidal volume 350, FiO2 30% and PEEP of 6. Poor prognosis. Consider hospice. Continue scopolamine for secretion control. Continue pressors to maintain MAP > 65; currently off. 02/09/2020. Continue Zosyn 4.5 g IV every 8 hours for Proteus bacteremia with end date of 02/27/2020. Continue wound care/wound VAC per surgery. Patient still on mechanical ventilation AC mode rate 12, tidal volume 350, FiO2 30% and PEEP of 6. Poor prognosis. Consider hospice. Continue scopolamine for secretion control. Currently off pressors. 02/09; evaluated by surgery, planning tracheostomy pending COVID test 02/10; possible tracheostomy today pending COVID test, surgery following 02/11; patient n.p.o. from midnight, possible tracheostomy tomorrow Received 1 unit of PRBC, Hb improved to 8.6 02/12; scheduled for tracheostomy today 02/13; trach care, bilateral upper extremity L edema and swelling, check venous Doppler 02/14; right upper extremity swelling edema, DC the line, elevate the limb History Interval history: I seen and examined the patient at the bedside in ICU this morning No new overnight events reported by the nursing Patient unresponsive noncommunicative, status post trach and PEG No new complaints per nurse .vital signs reviewed Patient has market swelling of the right upper extremity Venous Doppler study pending Hospitalist Physical - Constitutional Vitals: Temp Pulse Resp BP Pulse Ox 97.9 F 114 H 27 H 119/62 100 02/15/20 03:34 02/15/20 07:42 02/15/20 07:42 02/15/20 07:42 02/15/20 07:42 General appearance: Present: no acute distress, well-nourished, other (Tracheostomy on vent) - EENT Eyes: Present: PERRL, EOM intact ENT: other (Tracheostomy) - Neck Neck: Present: other (Tracheostomy) - Respiratory Respiratory effort: normal Respiratory: bilateral: diminished, rhonchi, negative: rales, wheezing - Cardiovascular Rhythm: regular Heart Sounds: Present: S1 & S2 - Extremities Extremities: no ischemia Extremity abnormal: edema (Right upper extremity> left), other (Contracted) - Abdominal General gastrointestinal: soft, non-tender, non-distended, normal bowel sounds - Integumentary Integumentary: Present: clear, warm - Psychiatric Psychiatric: other (Noncommunicative/tracheostomy on vent) - Neurologic Neurologic: other (Noncommunicative) Results - Labs CBC & Chem 7: 02/16/20 05:09 02/16/20 05:09 Labs: Laboratory Last Values WBC 10.4 K/mm3 (4.5-11.0) 02/14/20 04:26 RBC 2.74 M/mm3 (3.65-5.03) L 02/14/20 04:26 Hgb 8.7 gm/dl (10.1-14.3) L 02/14/20 04:26 Hct 25.8 % (30.3-42.9) L 02/14/20 04:26 MCV 94 fl (79-97) 02/14/20 04:26 MCH 32 pg (28-32) 02/14/20 04:26 MCHC 34 % (30-34) 02/14/20 04:26 RDW 21.3 % (13.2-15.2) H 02/14/20 04:26 Plt Count 389 K/mm3 (140-440) 02/14/20 04:26 Lymph % (Auto) 13.2 % (13.4-35.0) L 02/14/20 04:26 Andrews % (Auto) 3.6 % (0.0-7.3) 02/14/20 04:26 Eos % (Auto) 1.0 % (0.0-4.3) 02/14/20 04:26 Baso % (Auto) 0.8 % (0.0-1.8) 02/14/20 04:26 Lymph # (Auto) 1.4 K/mm3 (1.2-5.4) 02/14/20 04:26 Andrews # (Auto) 0.4 K/mm3 (0.0-0.8) 02/14/20 04:26 Eos # (Auto) 0.1 K/mm3 (0.0-0.4) 02/14/20 04:26 Baso # (Auto) 0.1 K/mm3 (0.0-0.1) 02/14/20 04:26 Add Manual Diff Complete 02/11/20 04:12 Total Counted 100 02/11/20 04:12 Seg Neutrophils % 81.4 % (40.0-70.0) H 02/14/20 04:26 Seg Neuts % (Manual) 83.0 % (40.0-70.0) H 02/11/20 04:12 Band Neutrophils % 0 % 02/11/20 04:12 Lymphocytes % (Manual) 11.0 % (13.4-35.0) L 02/11/20 04:12 Reactive Lymphs % (Man) 0 % 02/11/20 04:12 Monocytes % (Manual) 5.0 % (0.0-7.3) 02/11/20 04:12 Eosinophils % (Manual) 1.0 % (0.0-4.3) 02/11/20 04:12 Basophils % (Manual) 0 % (0.0-1.8) 02/11/20 04:12 Metamyelocytes % 0 % 02/11/20 04:12 Myelocytes % 0 % 02/11/20 04:12 Promyelocytes % 0 % 02/11/20 04:12 Blast Cells % 0 % 02/11/20 04:12 Nucleated RBC % Not Reportable 02/11/20 04:12 Seg Neutrophils # 8.4 K/mm3 (1.8-7.7) H 02/14/20 04:26 Seg Neutrophils # Man 7.6 K/mm3 (1.8-7.7) 02/11/20 04:12 Band Neutrophils # 0.0 K/mm3 02/11/20 04:12 Lymphocytes # (Manual) 1.0 K/mm3 (1.2-5.4) L 02/11/20 04:12 Abs React Lymphs (Man) 0.0 K/mm3 02/11/20 04:12 Monocytes # (Manual) 0.5 K/mm3 (0.0-0.8) 02/11/20 04:12 Eosinophils # (Manual) 0.1 K/mm3 (0.0-0.4) 02/11/20 04:12 Basophils # (Manual) 0.0 K/mm3 (0.0-0.1) 02/11/20 04:12 Metamyelocytes # 0.0 K/mm3 02/11/20 04:12 Myelocytes # 0.0 K/mm3 02/11/20 04:12 Promyelocytes # 0.0 K/mm3 02/11/20 04:12 Blast Cells # 0.0 K/mm3 02/11/20 04:12 WBC Morphology Not Reportable 02/11/20 04:12 Hypersegmented Neuts Not Reportable 02/11/20 04:12 Hyposegmented Neuts Not Reportable 02/11/20 04:12 Hypogranular Neuts Not Reportable 02/11/20 04:12 Smudge Cells Not Reportable 02/11/20 04:12 Toxic Granulation Not Reportable 02/11/20 04:12 Toxic Vacuolation Not Reportable 02/11/20 04:12 Dohle Bodies Not Reportable 02/11/20 04:12 Pelger-Huet Anomaly Not Reportable 02/11/20 04:12 Lata Rods Not Reportable 02/11/20 04:12 Platelet Estimate Consistent w auto 02/11/20 04:12 Clumped Platelets Not Reportable 02/11/20 04:12 Plt Clumps, EDTA Not Reportable 02/11/20 04:12 Large Platelets Not Reportable 02/11/20 04:12 Giant Platelets Not Reportable 02/11/20 04:12 Platelet Satelliting Not Reportable 02/11/20 04:12 Plt Morphology Comment Not Reportable 02/11/20 04:12 RBC Morphology Not Reportable 02/11/20 04:12 Dimorphic RBCs Not Reportable 02/11/20 04:12 Polychromasia Not Reportable 02/11/20 04:12 Hypochromasia Not Reportable 02/11/20 04:12 Poikilocytosis Not Reportable 02/11/20 04:12 Anisocytosis 2+ 02/11/20 04:12 Microcytosis Not Reportable 02/11/20 04:12 Macrocytosis Few 02/11/20 04:12 Spherocytes Not Reportable 02/11/20 04:12 Pappenheimer Bodies Not Reportable 02/11/20 04:12 Sickle Cells Not Reportable 02/11/20 04:12 Target Cells Few 02/11/20 04:12 Tear Drop Cells Not Reportable 02/11/20 04:12 Ovalocytes Not Reportable 02/11/20 04:12 Helmet Cells Not Reportable 02/11/20 04:12 Lombardi-Heyworth Bodies Not Reportable 02/11/20 04:12 [place] Rings Not Reportable 02/11/20 04:12 Leonidas Cells Not Reportable 02/11/20 04:12 Bite Cells Not Reportable 02/11/20 04:12 Crenated Cell Not Reportable 02/11/20 04:12 Elliptocytes Not Reportable 02/11/20 04:12 Acanthocytes (Spur) Not Reportable 02/11/20 04:12 Rouleaux Not Reportable 02/11/20 04:12 Hemoglobin C Crystals Not Reportable 02/11/20 04:12 Schistocytes Not Reportable 02/11/20 04:12 Malaria parasites Not Reportable 02/11/20 04:12 Gideon Bodies Not Reportable 02/11/20 04:12 Hem Pathologist Commnt No 02/11/20 04:12 APTT 33.9 Sec. (24.2-36.6) 01/26/20 16:30 PT 14.4 Sec. (12.2-14.9) 02/02/20 05:25 INR 1.11 (0.87-1.13) 02/02/20 05:25 Heparin Anti-Xa Level 0.74 U.I./ml (0.3-0.7) H 01/28/20 08:50 ABG pH 7.463 pH Units (7.350-7.450) H 02/13/20 04:30 POC ABG pCO2 38.5 mmHg (32.0-48.0) 02/11/20 03:43 ABG pCO2 39.6 mm Hg 02/13/20 04:30 POC ABG pO2 112.6 mmHg (83-108) H 02/11/20 03:43 ABG pO2 98.4 mm Hg (80.0-90.0) H 02/13/20 04:30 POC ABG HCO3 28 02/11/20 03:43 ABG HCO3 27.7 mmol/L (20.0-26.0) H 02/13/20 04:30 ABG O2 Saturation 97.7 % (95.0-99.0) 02/13/20 04:30 ABG O2 Content 19.3 (0.0-44) 02/13/20 04:30 POC ABG Base Excess 4.2 02/11/20 03:43 ABG Base Excess 3.7 mmol/L (-2.0-3.0) H 02/13/20 04:30 ABG Hemoglobin 14.4 gm/dl (12.0-16.0) 02/13/20 04:30 ABG Oxyhemoglobin 96.7 (94-98) 02/09/20 03:04 ABG Carboxyhemoglobin 1.8 % (0.0-5.0) 02/13/20 04:30 ABG Methemoglobin 0.6 % (0.0-1.5) 02/13/20 04:30 ABG Sodium 138.5 mmol/L (136.0-145.0) 02/11/20 03:43 ABG Potassium 3.4 mmol/L (3.40-4.50) 02/11/20 03:43 ABG Chloride 107.0 mmol/L (98-107) 02/11/20 03:43 ABG Glucose 154 mg/dL (65-95) H 02/11/20 03:43 Oxyhemoglobin 95.3 % (95.0-99.0) 02/13/20 04:30 Carboxyhemoglobin TNR 02/08/20 03:55 FiO2 25 % 02/13/20 04:30 Sodium 142 mmol/L (137-145) 02/14/20 04:26 Potassium 3.4 mmol/L (3.6-5.0) L 02/14/20 04:26 Chloride 107.6 mmol/L (98-107) H 02/14/20 04:26 Carbon Dioxide 28 mmol/L (22-30) 02/14/20 04:26 Anion Gap 10 mmol/L 02/14/20 04:26 BUN 20 mg/dL (7-17) H 02/14/20 04:26 Creatinine 0.3 mg/dL (0.6-1.2) L 02/14/20 04:26 Estimated GFR > 60 ml/min 02/14/20 04:26 BUN/Creatinine Ratio 67 % 02/14/20 04:26 Glucose 170 mg/dL (65-100) H 02/14/20 04:26 POC Glucose 203 (70-105) H 02/15/20 05:44 Hemoglobin A1c 5.3 % (4-6) 01/11/20 00:45 Lactic Acid 1.30 mmol/L (0.7-2.0) 01/26/20 23:27 Calcium 8.2 mg/dL (8.4-10.2) L 02/14/20 04:26 Phosphorus 2.30 mg/dL (2.5-4.5) L 02/03/20 05:14 Magnesium 2.20 mg/dL (1.7-2.3) 02/06/20 05:11 Total Bilirubin 0.20 mg/dL (0.1-1.2) 02/13/20 04:45 AST 29 units/L (5-40) 02/13/20 04:45 ALT 38 units/L (7-56) 02/13/20 04:45 Alkaline Phosphatase 109 units/L (35-129) 02/13/20 04:45 C-Reactive Protein 14.80 mg/dL (0.00-1.30) H 01/29/20 Unknown Total Protein 4.2 g/dL (6.3-8.2) L 02/13/20 04:45 Albumin 2.0 g/dL (3.9-5) L 02/13/20 04:45 Albumin/Globulin Ratio 0.9 % 02/13/20 04:45 TSH 2.440 mlU/mL (0.270-4.200) 01/10/20 10:10 Procalcitonin 1.86 ng/mL (<0.15) 01/29/20 Unknown Arterial Blood Glucose 154 mg/dL (65-95) H 02/11/20 03:43 Arterial Blood Ionized Calcium 4.6 mg/dL (4.6-5.3) 02/11/20 03:43 Urine Color Cordelia (Yellow) 01/08/20 Unknown Urine Turbidity Cloudy (Clear) 01/08/20 Unknown Urine pH 5.0 (5.0-7.0) 01/08/20 Unknown Ur Specific [place] 1.018 (1.003-1.030) 01/08/20 Unknown Urine Protein 30 mg/dl mg/dL (Negative) 01/08/20 Unknown Urine Glucose (UA) Neg mg/dL (Negative) 01/08/20 Unknown Urine Ketones Neg mg/dL (Negative) 01/08/20 Unknown Urine Blood Mod (Negative) 01/08/20 Unknown Urine Nitrite Neg (Negative) 01/08/20 Unknown Urine Bilirubin Neg (Negative) 01/08/20 Unknown Urine Urobilinogen < 2.0 mg/dL (<2.0) 01/08/20 Unknown Ur Leukocyte Esterase Sm (Negative) 01/08/20 Unknown Urine WBC (Auto) 11.0 /HPF (0.0-6.0) H 01/08/20 Unknown Urine RBC (Auto) 7.0 /HPF (0.0-6.0) 01/08/20 Unknown U Epithel Cells (Auto) < 1.0 /HPF (0-13.0) 01/08/20 Unknown Urine Bacteria (Auto) 1+ /HPF (Negative) 01/08/20 Unknown Urine Mucus 2+ /HPF 01/08/20 Unknown Urine Yeast (Budding) 1+ /HPF 01/08/20 Unknown Vancomycin Trough 7.9 ug/mL (5.0-20.0) 01/17/20 16:04 Coronavirus (PCR) Negative (Negative) 02/10/20 10:06 Blood Type A POSITIVE 02/11/20 08:22 Antibody Screen Negative 02/11/20 08:22 Crossmatch See Detail 02/11/20 08:22 Mejía/IV: Voiding Method Indwelling Catheter IV Catheter Type [Left Upper PICC Line arm] IV Catheter Type [Right Upper Mid-line arm] IV Catheter Type [Right Peripheral IV Forearm] Active Medications - Current Medications Current Medications: Generic Name Dose Route Start Last Admin Trade Name Freq PRN Reason Stop Dose Admin Acetaminophen 650 mg 01/08/20 23:14 01/18/20 06:03 Tylenol PO 650 mg Q4H PRN Administration Pain MILD(1-3)/Fever >100.5/GARCIA Lipase/Protease/Amylase 1 each 01/17/20 08:[address] 10,500 Unit FEEDTUBE PRN PRN For Clogged Feeding Tube Atorvastatin Calcium 10 mg 01/09/20 22:00 02/14/20 23:04 Atorvastatin PO 10 mg QHS BRO Administration Dextrose 0 ml 01/08/20 23:14 02/10/20 17:18 D50w (25gm) Syringe IV 10 ml Q30MIN PRN Administration Hypoglycemia Protocol Donepezil HCl 10 mg 01/09/20 22:00 02/14/20 23:04 Aricept PO 10 mg QHS BRO Administration Famotidine 20 mg 01/27/20 10:00 02/14/20 23:02 Pepcid PO 20 mg BID BRO Administration Ferrous Sulfate 308 mg 02/09/20 12:00 02/14/20 09:31 Ferrous Sulfate FEEDTUBE 308 mg DAILY BRO Administration Fluticasone Propionate 100 mcg 01/25/20 20:00 01/26/20 06:09 Flonase NS 100 mcg QDAY PRN Administration Nasal Congestion Heparin Sodium (Porcine) 5,000 unit 01/28/20 10:00 02/14/20 23:03 Heparin SUB-Q 5,000 unit Q12HR BRO Administration Hydrophilic Ointment 1 applic 01/28/20 10:57 Vaseline Lip Therapy TP Q2HR PRN Dry Lips Piperacillin Sod/Tazobactam Sod 4.5 gm in 100 mls @ 200 mls/hr 01/19/20 14:00 02/15/20 06:07 Zosyn/Ns 4.5gm/100ml IV 02/27/20 22:29 200 mls/hr Q8HR BRO Administration Protocol Norepinephrine 4 mg in 250 mls @ 7.5 mls/hr 02/05/20 01:00 02/06/20 15:32 Levophed Drip 4 Mg/Ns 250 Ml IV Infused TITR BRO Titration Protocol 2 MCG/MIN Fentanyl Citrate 2,000 mcg in 100 mls @ 3.6 mls/hr 02/13/20 13:00 02/14/20 18:25 Fentanyl Drip Premix IV 0 mcg/kg/hr TITR BRO 0 mls/hr Titration Protocol 1 MCG/KG/HR Insulin Human Regular 0 unit 01/27/20 12:00 02/15/20 07:05 Humulin R SUB-Q Not Given Q6HR [facility] Protocol Loperamide HCl 2 mg 02/14/20 12:00 02/14/20 16:48 Loperamide PO 2 mg Q2H PRN Administration Diarrhea Magnesium Hydroxide 30 ml 01/08/20 23:14 Milk Of Magnesia PO Q4H PRN Constipation Mirtazapine 15 mg 01/09/20 22:00 02/14/20 23:04 Remeron PO 15 mg QHS BRO Administration Multi-Ingred Cream/Lotion/Oil/Oint 1 applic 01/28/20 10:57 Artificial Tears Ophth Oint OU Q4HR PRN Dry Eye(s) Multivitamins 5 ml 02/09/20 12:00 02/14/20 09:31 Centrum Liq PO 5 ml QDAY BRO Administration Ondansetron HCl 4 mg 01/08/20 23:14 Zofran IV Q8H PRN Nausea And Vomiting Scopolamine 1 each 02/05/20 10:00 02/14/20 09:31 Transderm-Scop TD 1 each Q3D BRO Administration Simple Syrup 15 ml 01/17/20 08:37 Simple Syrup FEEDTUBE PRN PRN Hypoglycemia Simple Syrup 30 ml 01/17/20 08:37 02/11/20 23:43 Simple Syrup FEEDTUBE 30 ml PRN PRN Administration Hypoglycemia Sodium Bicarbonate 325 mg 01/17/20 08:37 Sodium Bicarbonate FEEDTUBE PRN PRN For Clogged Feeding Tube Sodium Chloride 10 ml 01/09/20 10:00 02/14/20 23:04 Sodium Chloride Flush Syringe 10 Ml IV 10 ml BID BRO Administration Sodium Chloride 10 ml 01/08/20 23:14 Sodium Chloride Flush Syringe 10 Ml IV PRN PRN LINE FLUSH Trazodone HCl 25 mg 01/09/20 22:00 02/14/20 23:02 Desyrel PO 25 mg QHS BRO Administration Nutrition/Malnutrition Assess - Dietary Evaluation Nutrition/Malnutrition Findings: Nutrition Notes Start: 01/09/20 12:13 Freq: Status: Active Protocol: Document 10/08/20 11:15 BK (Rec: 02/12/20 11:28 BK [id number]) Co-Sign 02/12/20 11:15 LP Nutrition Notes Initial or Follow up Reassessment Current Diagnosis Decubitus(Pressure Ulcer), Diabetes,Sepsis Other Pertinent Diagnosis UTI, dementia, PE, Sacral wound Current Diet Vital AF 1.2 at 50ml/hr Labs/Tests 02/10 Na 146 BUN 24 Cr 0.4 BG 168 Pertinent Medications Reviewed Height 5 ft 2 in Weight 72 kg [place] Body Weight (kg) 50.00 BMI 29.0 Weight change and time frame Wt change noted. Pt 4+ pitting edema continues. Weight Status Overweight Subjective/Other Information F/U for stable TF and Na levels. Pt TF running at goal rate. Na levels remain slightly elevated. Percent of energy/protein needs met: 91%/100% Burn Absent Trauma Absent GI Symptoms Diarrhea Current % PO Negligible Minimum of two criteria Yes Fluid Accumulation Moderate to Severe (severe) Reduced Box Loader Strength Measurably Reduced (severe) #3 Nutrition Diagnosis Malnutrition Diagnosis Progress(for reassessment Continues documentation) #2 Nutrition Diagnosis Inadequate oral intake Diagnosis Progress(for reassessment Continues documentation) #1 Nutrition Diagnosis Increased nutrient needs ( specify in comment below) Diagnosis Progress(for reassessment Continues documentation) Is patient on ventilator? Yes Is Patient Ambulatory and/or Out of Bed No REE-([place]-confined to bed) 1437.756 Kcal/Kg value to use for calculation 22 Approximate Energy Requirements Using 1584 kcal/Kg Calculation Used for Recommendations Kcal/kg Additional Notes Pro: 81-98 g (1.25-1.5 g/kg) Fluid: 1ml/kcal Nutrition Intervention Change Diet Order: Continue Nutrition Support: Vital AF 1.2 at 50ml/hr Flush 250ml q4h per MD Kcal 1,440 Protein (gm) 90 Fluid (mL) 973 Goal #1 Meet at least 80% of kcal and protein needs via TF Goal #2 TF tolerance Goal #3 Wound Healing Anticipated Discharge Needs: Continue TF Follow-Up By: 02/16/20 Additional Comments F/U for stable TF and Na levels
[2020-02-15] MEDS: MULTIVITAMINS 5 ML ORAL LIQUID PO SCH (09:20)
[2020-02-15] MEDS: FAMOTIDINE 20 MG TAB PO SCH ×2 (09:20→22:32)
[2020-02-15] MEDS: FERROUS SULFATE 308 MG (62mg Elemental Iron) / 7 ML ELIXIR FEEDTUBE SCH (09:20)
[2020-02-15] MEDS: HEPARIN 5,000 UNIT/1 ML VIAL SUB-Q SCH ×2 (09:20→22:33)
--- NOTE | 2020-02-15 12:56 | Progress Note ---
Assessment and Plan Severe sepsis with shock. Left lung atelectasis. Left pleural effusion. Acute hypoxemic respiratory failure on MVS s/p Tracheostomy s/p Cardiopulamanry arrest with ROSC x2 Severe sepsis with shock Acute possibly on chronic encephalopathy. History of diabetes. Urinary tract infection. History of pulmonary embolism, diagnosed several months ago. Sacral decubitus ulcer. Dementia. Anemia that is normocytic. Trach care, airway clearance , secretion management -SBT as tolerated -Follow up venous dopplers once the study is completed -Monitor hemodynamics closely and hemoglobin -VAP bundle addressed, Daily SBT as tolerated -Wean FIO2 for O2 sats >92%, currently on FIO2 of 30% -Aspiration precautions, HOB >40 -Enteric nutritional support- has a PEG - continue bronchodilators with pulmonary hygiene per RT - continue accuchecks with glycemic control per SSI (While critically ill target blood glucose of 140-180 mg/dL; avoid hypoglycemia) - avoid nephrotoxins, renally dose all medications - continue to avoid benzodiazepines, reduce the possibility of delirium - complete antibiotics -on Zosyn for sacral osteomyelitis - prn analgesia per CPOT score - Maintenance of sleep-wake cycle, avoid delirium -VTE prophylaxis with Heparin - Stress ulcer prophylaxis with Famotidine - PT/OT/ROM exercises - continue mobility protocol, frequent turning and off loading to prevent further pressure ulcers -Wound care with wound vac - Monitor hemodynamics closely -Free water flushes for hypernatremia - continue other care per attending / other consultants CONDITION: CRITICAL PROGNOSIS: GUARDED CODE STATUS: FULL CODE The high probability of a clinically significant, sudden or life-threatening deterioration of the [respiratory, cardiovascular & neurologic] system(s) required my full and direct attention, intervention and personal management. The aggregate critical care time was [32] minutes without overlap. Time includes spent on; [x] Data Review and interpretation [x] Patient assessment and monitoring of vital signs [x] Documentation [x] Medication orders and management Subjective Date of service: 02/15/20 Principal diagnosis: Septic Shock; S/P Cardiac Arrest; Ac. hypoxemic resp failure; UTI Interval history: Patient is seen today for: PEA arrest with ROSC, trach to MVS; Severe sepsis with shock ; Acute hypoxemic respiratory failure; Acute possibly on chronic encephalopathy; DM II ; UTI ; VTE Seen and examined at bedside; 24hour events reviewed; nursing and respiratory care staff consulted; no adverse overnight events reported to me; resting peac efully in bed; No fevers, no vomiting. s/p trach , awake and alert but not obeying commands. Not on any pressors. No overnight events. Midline discontinued for upper extremity swelling, Venous doppler pending Objective Vital Signs - 12hr 02/15/20 02/15/20 02/15/20 00:59 01:00 01:30 Temperature Pulse Rate 90 91 H 99 H Pulse Rate [ From Monitor] Respiratory 21 23 Rate Blood Pressure 123/53 123/53 123/55 O2 Sat by Pulse 100 100 100 Oximetry O2 Sat by Pulse Oximetry [ Assessment] 02/15/20 02/15/20 02/15/20 02:00 02:30 03:00 Temperature Pulse Rate 88 102 H 91 H Pulse Rate [ From Monitor] Respiratory 23 23 23 Rate Blood Pressure 127/55 139/58 125/55 O2 Sat by Pulse 100 100 100 Oximetry O2 Sat by Pulse Oximetry [ Assessment] 02/15/20 02/15/20 02/15/20 03:30 03:34 04:00 Temperature 97.9 F Pulse Rate 91 H 104 H Pulse Rate [ 101 H From Monitor] Respiratory 23 26 H Rate Blood Pressure 132/51 139/61 O2 Sat by Pulse 100 100 Oximetry O2 Sat by Pulse Oximetry [ Assessment] 02/15/20 02/15/20 02/15/20 04:30 05:00 05:30 Temperature Pulse Rate 106 H 109 H 107 H Pulse Rate [ From Monitor] Respiratory 23 28 H 24 Rate Blood Pressure 134/60 133/60 130/55 O2 Sat by Pulse 100 100 100 Oximetry O2 Sat by Pulse 100 Oximetry [ Assessment] 02/15/20 02/15/20 02/15/20 06:00 06:30 07:00 Temperature Pulse Rate 106 H 113 H 111 H Pulse Rate [ From Monitor] Respiratory 24 24 24 Rate Blood Pressure 131/56 135/56 125/57 O2 Sat by Pulse 100 100 100 Oximetry O2 Sat by Pulse Oximetry [ Assessment] 02/15/20 02/15/20 02/15/20 07:30 07:31 07:42 Temperature Pulse Rate 116 H 114 H 114 H Pulse Rate [ From Monitor] Respiratory 19 27 H Rate Blood Pressure 119/62 119/62 119/62 O2 Sat by Pulse 100 100 100 Oximetry O2 Sat by Pulse Oximetry [ Assessment] 02/15/20 02/15/20 02/15/20 08:00 08:30 09:00 Temperature 97.4 F L Pulse Rate 111 H 112 H 112 H Pulse Rate [ 111 H From Monitor] Respiratory 24 27 H 28 H Rate Blood Pressure 118/57 123/57 121/55 O2 Sat by Pulse 100 100 100 Oximetry O2 Sat by Pulse Oximetry [ Assessment] 02/15/20 02/15/20 02/15/20 09:30 10:00 10:30 Temperature Pulse Rate 115 H 118 H 119 H Pulse Rate [ From Monitor] Respiratory 29 H 29 H 10 L Rate Blood Pressure 131/64 128/57 129/64 O2 Sat by Pulse 100 100 100 Oximetry O2 Sat by Pulse Oximetry [ Assessment] 02/15/20 02/15/20 11:00 12:26 Temperature Pulse Rate 111 H 112 H Pulse Rate [ From Monitor] Respiratory 22 27 H Rate Blood Pressure 119/55 114/54 O2 Sat by Pulse 100 100 Oximetry O2 Sat by Pulse Oximetry [ Assessment] Constitutional: no acute distress, alert, other (elderly chronically ill looking female trach to [facility]) Eyes: non-icteric ENT: oropharynx moist, other (trach) Neck: supple, no lymphadenopathy Effort: normal Ascultation: Bilateral: clear, diminished breath sounds, rales (bases predominant), rhonchi (scant) Percussion: Bilateral: not dull Cardiovascular: regular rate and rhythm, other (S1,S2) Gastrointestinal: normoactive bowel sounds, soft, non-tender, other (PEG in place) Integumentary: decubitus ulcer Extremities: no cyanosis, pulses normal, no ischemia or petechiae, edema, other (bilateral upper extremity edema) Neurologic: pupils equal and round, other (awake and alert, not obeying commands) Psychiatric: other (Unable to assess secondary to mental status) CBC and BMP: 02/16/20 05:09 02/16/20 05:09 ABG, PT/INR, D-dimer: ABG ABG pH 7.463 pH Units (7.350-7.450) H 02/13/20 04:30 POC ABG pCO2 38.5 mmHg (32.0-48.0) 02/11/20 03:43 ABG pCO2 39.6 mm Hg 02/13/20 04:30 POC ABG pO2 112.6 mmHg (83-108) H 02/11/20 03:43 ABG pO2 98.4 mm Hg (80.0-90.0) H 02/13/20 04:30 POC ABG HCO3 28 02/11/20 03:43 ABG O2 Saturation 97.7 % (95.0-99.0) 02/13/20 04:30 PT/INR, D-dimer PT 14.4 Sec. (12.2-14.9) 02/02/20 05:25 INR 1.11 (0.87-1.13) 02/02/20 05:25 Abnormal lab findings: Abnormal Labs 01/08/20 01/08/20 01/08/20 16:29 16:29 16:29 WBC 13.5 H RBC Hgb Hct MCHC RDW 15.5 H Plt Count MCH Lymph % (Auto) Lymph # Lymph # (Auto) Seg Neutrophils % Seg Neuts % (Manual) 85.0 H Lymphocytes % (Manual) 11.0 L Seg Neutrophils # Seg Neutrophils # Man 11.5 H Nucleated RBC % Lymphocytes # (Manual) Monocytes # (Manual) PT INR Heparin Anti-Xa Level POC ABG pO2 ABG pH ABG Hemoglobin ABG Oxyhemoglobin ABG pO2 ABG HCO3 ABG O2 Saturation ABG Base Excess ABG Potassium ABG Chloride ABG Glucose Oxyhemoglobin Sodium 161 H* Potassium Chloride 125.5 H Carbon Dioxide 20 L BUN 30 H Creatinine Glucose 115 H POC Glucose Lactic Acid 2.20 H* Calcium 7.9 L AST 48 H Phosphorus Total Protein Albumin 2.5 L C-Reactive Protein Arterial Blood Glucose Arterial Blood Ionized Calcium Urine WBC (Auto) Crossmatch 01/08/20 01/08/20 01/08/20 19:02 23:30 Unknown WBC RBC Hgb Hct MCHC RDW Plt Count MCH Lymph % (Auto) Lymph # Lymph # (Auto) Seg Neutrophils % Seg Neuts % (Manual) Lymphocytes % (Manual) Seg Neutrophils # Seg Neutrophils # Man Nucleated RBC % Lymphocytes # (Manual) Monocytes # (Manual) PT INR Heparin Anti-Xa Level POC ABG pO2 ABG pH ABG Hemoglobin ABG Oxyhemoglobin ABG pO2 ABG HCO3 ABG O2 Saturation ABG Base Excess ABG Potassium ABG Chloride ABG Glucose Oxyhemoglobin Sodium Potassium Chloride Carbon Dioxide BUN Creatinine Glucose POC Glucose Lactic Acid 2.10 H* 2.50 H* Calcium AST Phosphorus Total Protein Albumin C-Reactive Protein Arterial Blood Glucose Arterial Blood Ionized Calcium Urine WBC (Auto) 11.0 H Crossmatch 01/09/20 01/09/20 01/09/20 00:19 00:54 05:52 WBC 13.5 H RBC 3.02 L Hgb 9.0 L D Hct 27.4 L D MCHC RDW Plt Count MCH Lymph % (Auto) 9.1 L Lymph # Lymph # (Auto) Seg Neutrophils % 87.6 H Seg Neuts % (Manual) Lymphocytes % (Manual) Seg Neutrophils # 11.8 H Seg Neutrophils # Man Nucleated RBC % Lymphocytes # (Manual) Monocytes # (Manual) PT INR Heparin Anti-Xa Level POC ABG pO2 ABG pH ABG Hemoglobin ABG Oxyhemoglobin ABG pO2 ABG HCO3 ABG O2 Saturation ABG Base Excess ABG Potassium ABG Chloride ABG Glucose Oxyhemoglobin Sodium Potassium Chloride Carbon Dioxide BUN Creatinine Glucose POC Glucose 118 H 116 H Lactic Acid Calcium AST Phosphorus Total Protein Albumin C-Reactive Protein Arterial Blood Glucose Arterial Blood Ionized Calcium Urine WBC (Auto) Crossmatch 01/09/20 01/09/20 01/09/20 05:52 05:52 13:03 WBC RBC Hgb Hct MCHC RDW Plt Count MCH Lymph % (Auto) Lymph # Lymph # (Auto) Seg Neutrophils % Seg Neuts % (Manual) Lymphocytes % (Manual) Seg Neutrophils # Seg Neutrophils # Man Nucleated RBC % Lymphocytes # (Manual) Monocytes # (Manual) PT 17.1 H INR 1.36 H Heparin Anti-Xa Level POC ABG pO2 ABG pH ABG Hemoglobin ABG Oxyhemoglobin ABG pO2 ABG HCO3 ABG O2 Saturation ABG Base Excess ABG Potassium ABG Chloride ABG Glucose Oxyhemoglobin Sodium 162 H* Potassium 3.0 L D Chloride 128.3 H Carbon Dioxide BUN 23 H Creatinine Glucose POC Glucose 55 L Lactic Acid Calcium 7.6 L AST Phosphorus Total Protein Albumin C-Reactive Protein Arterial Blood Glucose Arterial Blood Ionized Calcium Urine WBC (Auto) Crossmatch 01/09/20 01/09/20 01/09/20 21:22 21:50 22:28 WBC RBC Hgb Hct MCHC RDW Plt Count MCH Lymph % (Auto) Lymph # Lymph # (Auto) Seg Neutrophils % Seg Neuts % (Manual) Lymphocytes % (Manual) Seg Neutrophils # Seg Neutrophils # Man Nucleated RBC % Lymphocytes # (Manual) Monocytes # (Manual) PT INR Heparin Anti-Xa Level POC ABG pO2 ABG pH ABG Hemoglobin ABG Oxyhemoglobin ABG pO2 ABG HCO3 ABG O2 Saturation ABG Base Excess ABG Potassium ABG Chloride ABG Glucose Oxyhemoglobin Sodium 159 H Potassium 5.1 H D Chloride 128.5 H Carbon Dioxide 16 L BUN 23 H Creatinine Glucose 51 L POC Glucose 52 L 106 H Lactic Acid Calcium 8.2 L AST Phosphorus Total Protein Albumin C-Reactive Protein Arterial Blood Glucose Arterial Blood Ionized Calcium Urine WBC (Auto) Crossmatch 01/10/20 01/10/20 01/10/20 05:23 09:11 10:10 WBC 13.4 H RBC Hgb Hct MCHC RDW Plt Count MCH Lymph % (Auto) 7.2 L Lymph # 1.0 L Lymph # (Auto) Seg Neutrophils % 90.0 H Seg Neuts % (Manual) Lymphocytes % (Manual) Seg Neutrophils # 12.0 H Seg Neutrophils # Man Nucleated RBC % Lymphocytes # (Manual) Monocytes # (Manual) PT INR Heparin Anti-Xa Level POC ABG pO2 ABG pH ABG Hemoglobin ABG Oxyhemoglobin ABG pO2 ABG HCO3 ABG O2 Saturation ABG Base Excess ABG Potassium ABG Chloride ABG Glucose Oxyhemoglobin Sodium 155 H Potassium Chloride 122.8 H Carbon Dioxide 21 L BUN 19 H Creatinine Glucose POC Glucose 120 H Lactic Acid Calcium AST Phosphorus Total Protein Albumin C-Reactive Protein Arterial Blood Glucose Arterial Blood Ionized Calcium Urine WBC (Auto) Crossmatch 01/10/20 01/10/20 01/10/20 11:47 11:57 17:09 WBC RBC Hgb Hct MCHC RDW Plt Count MCH Lymph % (Auto) Lymph # Lymph # (Auto) Seg Neutrophils % Seg Neuts % (Manual) Lymphocytes % (Manual) Seg Neutrophils # Seg Neutrophils # Man Nucleated RBC % Lymphocytes # (Manual) Monocytes # (Manual) PT INR Heparin Anti-Xa Level POC ABG pO2 ABG pH ABG Hemoglobin ABG Oxyhemoglobin ABG pO2 ABG HCO3 ABG O2 Saturation ABG Base Excess ABG Potassium ABG Chloride ABG Glucose Oxyhemoglobin Sodium 153 H Potassium Chloride 118.3 H Carbon Dioxide 20 L BUN 19 H Creatinine Glucose 113 H POC Glucose 142 H 125 H Lactic Acid Calcium AST Phosphorus Total Protein Albumin C-Reactive Protein Arterial Blood Glucose Arterial Blood Ionized Calcium Urine WBC (Auto) Crossmatch 01/10/20 01/10/20 01/11/20 20:27 22:00 00:45 WBC RBC Hgb Hct MCHC RDW Plt Count MCH Lymph % (Auto) Lymph # Lymph # (Auto) Seg Neutrophils % Seg Neuts % (Manual) Lymphocytes % (Manual) Seg Neutrophils # Seg Neutrophils # Man Nucleated RBC % Lymphocytes # (Manual) Monocytes # (Manual) PT INR Heparin Anti-Xa Level POC ABG pO2 ABG pH ABG Hemoglobin ABG Oxyhemoglobin ABG pO2 ABG HCO3 ABG O2 Saturation ABG Base Excess ABG Potassium ABG Chloride ABG Glucose Oxyhemoglobin Sodium 153 H 154 H Potassium 3.3 L 3.2 L Chloride 117.0 H 118.9 H Carbon Dioxide 20 L BUN Creatinine Glucose POC Glucose 136 H Lactic Acid Calcium 8.3 L 8.0 L AST Phosphorus Total Protein Albumin C-Reactive Protein Arterial Blood Glucose Arterial Blood Ionized Calcium Urine WBC (Auto) Crossmatch 01/11/20 01/11/20 01/11/20 07:06 08:03 11:54 WBC RBC Hgb Hct MCHC RDW Plt Count MCH Lymph % (Auto) Lymph # Lymph # (Auto) Seg Neutrophils % Seg Neuts % (Manual) Lymphocytes % (Manual) Seg Neutrophils # Seg Neutrophils # Man Nucleated RBC % Lymphocytes # (Manual) Monocytes # (Manual) PT INR Heparin Anti-Xa Level POC ABG pO2 ABG pH ABG Hemoglobin ABG Oxyhemoglobin ABG pO2 ABG HCO3 ABG O2 Saturation ABG Base Excess ABG Potassium ABG Chloride ABG Glucose Oxyhemoglobin Sodium 151 H Potassium Chloride 118.7 H Carbon Dioxide 21 L BUN Creatinine Glucose 107 H POC Glucose 118 H 164 H Lactic Acid Calcium 8.3 L AST Phosphorus Total Protein Albumin C-Reactive Protein Arterial Blood Glucose Arterial Blood Ionized Calcium Urine WBC (Auto) Crossmatch 01/11/20 01/12/20 01/12/20 16:28 00:19 05:40 WBC RBC Hgb Hct MCHC RDW Plt Count MCH Lymph % (Auto) Lymph # Lymph # (Auto) Seg Neutrophils % Seg Neuts % (Manual) Lymphocytes % (Manual) Seg Neutrophils # Seg Neutrophils # Man Nucleated RBC % Lymphocytes # (Manual) Monocytes # (Manual) PT INR Heparin Anti-Xa Level POC ABG pO2 ABG pH ABG Hemoglobin ABG Oxyhemoglobin ABG pO2 ABG HCO3 ABG O2 Saturation ABG Base Excess ABG Potassium ABG Chloride ABG Glucose Oxyhemoglobin Sodium 148 H Potassium Chloride 111.6 H Carbon Dioxide 19 L BUN Creatinine Glucose 128 H POC Glucose 132 H 179 H Lactic Acid Calcium 8.2 L AST Phosphorus Total Protein Albumin C-Reactive Protein Arterial Blood Glucose Arterial Blood Ionized Calcium Urine WBC (Auto) Crossmatch 01/12/20 01/12/20 01/12/20 06:17 11:37 17:21 WBC RBC Hgb Hct MCHC RDW Plt Count MCH Lymph % (Auto) Lymph # Lymph # (Auto) Seg Neutrophils % Seg Neuts % (Manual) Lymphocytes % (Manual) Seg Neutrophils # Seg Neutrophils # Man Nucleated RBC % Lymphocytes # (Manual) Monocytes # (Manual) PT INR Heparin Anti-Xa Level POC ABG pO2 ABG pH ABG Hemoglobin ABG Oxyhemoglobin ABG pO2 ABG HCO3 ABG O2 Saturation ABG Base Excess ABG Potassium ABG Chloride ABG Glucose Oxyhemoglobin Sodium Potassium Chloride Carbon Dioxide BUN Creatinine Glucose POC Glucose 140 H 142 H 133 H Lactic Acid Calcium AST Phosphorus Total Protein Albumin C-Reactive Protein Arterial Blood Glucose Arterial Blood Ionized Calcium Urine WBC (Auto) Crossmatch 01/12/20 01/13/20 01/13/20 23:14 05:26 07:00 WBC RBC Hgb Hct MCHC RDW Plt Count MCH Lymph % (Auto) Lymph # Lymph # (Auto) Seg Neutrophils % Seg Neuts % (Manual) Lymphocytes % (Manual) Seg Neutrophils # Seg Neutrophils # Man Nucleated RBC % Lymphocytes # (Manual) Monocytes # (Manual) PT INR Heparin Anti-Xa Level POC ABG pO2 ABG pH ABG Hemoglobin ABG Oxyhemoglobin ABG pO2 ABG HCO3 ABG O2 Saturation ABG Base Excess ABG Potassium ABG Chloride ABG Glucose Oxyhemoglobin Sodium Potassium Chloride 110.0 H Carbon Dioxide BUN Creatinine Glucose 139 H POC Glucose 135 H 162 H Lactic Acid Calcium 7.8 L AST Phosphorus Total Protein Albumin C-Reactive Protein Arterial Blood Glucose Arterial Blood Ionized Calcium Urine WBC (Auto) Crossmatch 01/13/20 01/13/20 01/13/20 12:14 17:52 21:40 WBC RBC Hgb Hct MCHC RDW Plt Count MCH Lymph % (Auto) Lymph # Lymph # (Auto) Seg Neutrophils % Seg Neuts % (Manual) Lymphocytes % (Manual) Seg Neutrophils # Seg Neutrophils # Man Nucleated RBC % Lymphocytes # (Manual) Monocytes # (Manual) PT INR Heparin Anti-Xa Level POC ABG pO2 ABG pH ABG Hemoglobin ABG Oxyhemoglobin ABG pO2 ABG HCO3 ABG O2 Saturation ABG Base Excess ABG Potassium ABG Chloride ABG Glucose Oxyhemoglobin Sodium Potassium Chloride Carbon Dioxide BUN Creatinine Glucose POC Glucose 205 H 172 H 186 H Lactic Acid Calcium AST Phosphorus Total Protein Albumin C-Reactive Protein Arterial Blood Glucose Arterial Blood Ionized Calcium Urine WBC (Auto) Crossmatch 01/14/20 01/14/20 01/14/20 04:28 11:01 11:01 WBC 14.8 H RBC 3.20 L Hgb 9.5 L Hct 28.0 L MCHC RDW Plt Count MCH Lymph % (Auto) Lymph # Lymph # (Auto) Seg Neutrophils % Seg Neuts % (Manual) Lymphocytes % (Manual) Seg Neutrophils # Seg Neutrophils # Man Nucleated RBC % Lymphocytes # (Manual) Monocytes # (Manual) PT INR Heparin Anti-Xa Level POC ABG pO2 ABG pH ABG Hemoglobin ABG Oxyhemoglobin ABG pO2 ABG HCO3 ABG O2 Saturation ABG Base Excess ABG Potassium ABG Chloride ABG Glucose Oxyhemoglobin Sodium Potassium 3.2 L Chloride Carbon Dioxide BUN Creatinine 0.4 L Glucose POC Glucose 115 H Lactic Acid Calcium 8.0 L AST Phosphorus Total Protein Albumin C-Reactive Protein Arterial Blood Glucose Arterial Blood Ionized Calcium Urine WBC (Auto) Crossmatch 01/14/20 01/14/20 01/14/20 11:01 16:33 22:32 WBC RBC Hgb Hct MCHC RDW Plt Count MCH Lymph % (Auto) Lymph # Lymph # (Auto) Seg Neutrophils % Seg Neuts % (Manual) Lymphocytes % (Manual) Seg Neutrophils # Seg Neutrophils # Man Nucleated RBC % Lymphocytes # (Manual) Monocytes # (Manual) PT 15.8 H INR 1.23 H Heparin Anti-Xa Level POC ABG pO2 ABG pH ABG Hemoglobin ABG Oxyhemoglobin ABG pO2 ABG HCO3 ABG O2 Saturation ABG Base Excess ABG Potassium ABG Chloride ABG Glucose Oxyhemoglobin Sodium Potassium Chloride Carbon Dioxide BUN Creatinine Glucose POC Glucose 58 L 188 H Lactic Acid Calcium AST Phosphorus Total Protein Albumin C-Reactive Protein Arterial Blood Glucose Arterial Blood Ionized Calcium Urine WBC (Auto) Crossmatch 01/15/20 01/15/20 01/15/20 05:35 06:19 17:17 WBC RBC Hgb Hct MCHC RDW Plt Count MCH Lymph % (Auto) Lymph # Lymph # (Auto) Seg Neutrophils % Seg Neuts % (Manual) Lymphocytes % (Manual) Seg Neutrophils # Seg Neutrophils # Man Nucleated RBC % Lymphocytes # (Manual) Monocytes # (Manual) PT INR Heparin Anti-Xa Level POC ABG pO2 ABG pH ABG Hemoglobin ABG Oxyhemoglobin ABG pO2 ABG HCO3 ABG O2 Saturation ABG Base Excess ABG Potassium ABG Chloride ABG Glucose Oxyhemoglobin Sodium Potassium Chloride Carbon Dioxide BUN Creatinine 0.5 L Glucose 104 H POC Glucose 106 H 183 H Lactic Acid Calcium 7.8 L AST Phosphorus Total Protein Albumin C-Reactive Protein Arterial Blood Glucose Arterial Blood Ionized Calcium Urine WBC (Auto) Crossmatch 01/15/20 01/16/20 01/16/20 22:29 05:35 05:59 WBC 14.7 H RBC 3.04 L Hgb 9.0 L Hct 27.0 L MCHC RDW Plt Count MCH Lymph % (Auto) 9.1 L Lymph # Lymph # (Auto) Seg Neutrophils % 87.3 H Seg Neuts % (Manual) Lymphocytes % (Manual) Seg Neutrophils # 12.9 H Seg Neutrophils # Man Nucleated RBC % Lymphocytes # (Manual) Monocytes # (Manual) PT INR Heparin Anti-Xa Level POC ABG pO2 ABG pH ABG Hemoglobin ABG Oxyhemoglobin ABG pO2 ABG HCO3 ABG O2 Saturation ABG Base Excess ABG Potassium ABG Chloride ABG Glucose Oxyhemoglobin Sodium Potassium Chloride Carbon Dioxide BUN Creatinine Glucose POC Glucose 228 H 130 H Lactic Acid Calcium AST Phosphorus Total Protein Albumin C-Reactive Protein Arterial Blood Glucose Arterial Blood Ionized Calcium Urine WBC (Auto) Crossmatch 01/16/20 01/16/20 01/16/20 09:52 12:49 17:30 WBC RBC Hgb Hct MCHC RDW Plt Count MCH Lymph % (Auto) Lymph # Lymph # (Auto) Seg Neutrophils % Seg Neuts % (Manual) Lymphocytes % (Manual) Seg Neutrophils # Seg Neutrophils # Man Nucleated RBC % Lymphocytes # (Manual) Monocytes # (Manual) PT INR Heparin Anti-Xa Level POC ABG pO2 ABG pH ABG Hemoglobin ABG Oxyhemoglobin ABG pO2 ABG HCO3 ABG O2 Saturation ABG Base Excess ABG Potassium ABG Chloride ABG Glucose Oxyhemoglobin Sodium Potassium Chloride Carbon Dioxide BUN Creatinine Glucose POC Glucose 122 H 142 H 192 H Lactic Acid Calcium AST Phosphorus Total Protein Albumin C-Reactive Protein Arterial Blood Glucose Arterial Blood Ionized Calcium Urine WBC (Auto) Crossmatch 01/16/20 01/17/20 01/17/20 23:01 08:36 08:36 WBC 12.7 H RBC 2.98 L Hgb 8.9 L Hct 26.4 L MCHC RDW Plt Count MCH Lymph % (Auto) 8.8 L Lymph # 1.1 L Lymph # (Auto) Seg Neutrophils % 86.7 H Seg Neuts % (Manual) Lymphocytes % (Manual) Seg Neutrophils # 11.0 H Seg Neutrophils # Man Nucleated RBC % Lymphocytes # (Manual) Monocytes # (Manual) PT INR Heparin Anti-Xa Level POC ABG pO2 ABG pH ABG Hemoglobin ABG Oxyhemoglobin ABG pO2 ABG HCO3 ABG O2 Saturation ABG Base Excess ABG Potassium ABG Chloride ABG Glucose Oxyhemoglobin Sodium Potassium 3.3 L D Chloride Carbon Dioxide BUN Creatinine 0.4 L Glucose POC Glucose 141 H Lactic Acid Calcium 8.1 L AST Phosphorus Total Protein 4.6 L Albumin 1.6 L C-Reactive Protein Arterial Blood Glucose Arterial Blood Ionized Calcium Urine WBC (Auto) Crossmatch 01/17/20 01/17/20 01/18/20 11:43 23:56 06:27 WBC RBC Hgb Hct MCHC RDW Plt Count MCH Lymph % (Auto) Lymph # Lymph # (Auto) Seg Neutrophils % Seg Neuts % (Manual) Lymphocytes % (Manual) Seg Neutrophils # Seg Neutrophils # Man Nucleated RBC % Lymphocytes # (Manual) Monocytes # (Manual) PT INR Heparin Anti-Xa Level POC ABG pO2 ABG pH ABG Hemoglobin ABG Oxyhemoglobin ABG pO2 ABG HCO3 ABG O2 Saturation ABG Base Excess ABG Potassium ABG Chloride ABG Glucose Oxyhemoglobin Sodium Potassium Chloride Carbon Dioxide BUN Creatinine Glucose POC Glucose 137 H 215 H 122 H Lactic Acid Calcium AST Phosphorus Total Protein Albumin C-Reactive Protein Arterial Blood Glucose Arterial Blood Ionized Calcium Urine WBC (Auto) Crossmatch 01/18/20 01/18/20 01/18/20 07:31 07:31 11:39 WBC 12.1 H RBC 3.23 L Hgb 9.7 L Hct 28.7 L MCHC RDW Plt Count MCH Lymph % (Auto) 9.2 L Lymph # 1.1 L Lymph # (Auto) Seg Neutrophils % 85.0 H Seg Neuts % (Manual) Lymphocytes % (Manual) Seg Neutrophils # 10.3 H Seg Neutrophils # Man Nucleated RBC % Lymphocytes # (Manual) Monocytes # (Manual) PT INR Heparin Anti-Xa Level POC ABG pO2 ABG pH ABG Hemoglobin ABG Oxyhemoglobin ABG pO2 ABG HCO3 ABG O2 Saturation ABG Base Excess ABG Potassium ABG Chloride ABG Glucose Oxyhemoglobin Sodium Potassium Chloride Carbon Dioxide BUN Creatinine 0.4 L Glucose 108 H POC Glucose 172 H Lactic Acid Calcium AST Phosphorus Total Protein 5.3 L Albumin 2.1 L C-Reactive Protein Arterial Blood Glucose Arterial Blood Ionized Calcium Urine WBC (Auto) Crossmatch 01/18/20 01/19/20 01/19/20 18:22 00:15 11:30 WBC RBC Hgb Hct MCHC RDW Plt Count MCH Lymph % (Auto) Lymph # Lymph # (Auto) Seg Neutrophils % Seg Neuts % (Manual) Lymphocytes % (Manual) Seg Neutrophils # Seg Neutrophils # Man Nucleated RBC % Lymphocytes # (Manual) Monocytes # (Manual) PT INR Heparin Anti-Xa Level POC ABG pO2 ABG pH ABG Hemoglobin ABG Oxyhemoglobin ABG pO2 ABG HCO3 ABG O2 Saturation ABG Base Excess ABG Potassium ABG Chloride ABG Glucose Oxyhemoglobin Sodium Potassium Chloride Carbon Dioxide BUN Creatinine Glucose POC Glucose 119 H 135 H 163 H Lactic Acid Calcium AST Phosphorus Total Protein Albumin C-Reactive Protein Arterial Blood Glucose Arterial Blood Ionized Calcium Urine WBC (Auto) Crossmatch 01/19/20 01/19/20 01/20/20 17:44 22:59 03:44 WBC 11.1 H RBC 2.77 L Hgb 8.4 L Hct 25.0 L MCHC RDW Plt Count MCH Lymph % (Auto) Lymph # Lymph # (Auto) Seg Neutrophils % 74.6 H Seg Neuts % (Manual) Lymphocytes % (Manual) Seg Neutrophils # 8.3 H Seg Neutrophils # Man Nucleated RBC % Lymphocytes # (Manual) Monocytes # (Manual) PT INR Heparin Anti-Xa Level POC ABG pO2 ABG pH ABG Hemoglobin ABG Oxyhemoglobin ABG pO2 ABG HCO3 ABG O2 Saturation ABG Base Excess ABG Potassium ABG Chloride ABG Glucose Oxyhemoglobin Sodium Potassium Chloride Carbon Dioxide BUN Creatinine Glucose POC Glucose 161 H 182 H Lactic Acid Calcium AST Phosphorus Total Protein Albumin C-Reactive Protein Arterial Blood Glucose Arterial Blood Ionized Calcium Urine WBC (Auto) Crossmatch 01/20/20 01/21/20 01/21/20 03:44 00:07 05:51 WBC RBC 2.84 L Hgb 8.6 L Hct 25.5 L MCHC RDW Plt Count 463 H MCH Lymph % (Auto) Lymph # Lymph # (Auto) Seg Neutrophils % 76.9 H Seg Neuts % (Manual) Lymphocytes % (Manual) Seg Neutrophils # 7.8 H Seg Neutrophils # Man Nucleated RBC % Lymphocytes # (Manual) Monocytes # (Manual) PT INR Heparin Anti-Xa Level POC ABG pO2 ABG pH ABG Hemoglobin ABG Oxyhemoglobin ABG pO2 ABG HCO3 ABG O2 Saturation ABG Base Excess ABG Potassium ABG Chloride ABG Glucose Oxyhemoglobin Sodium Potassium Chloride Carbon Dioxide BUN Creatinine 0.4 L Glucose POC Glucose 68 L Lactic Acid Calcium 7.9 L AST Phosphorus Total Protein 4.7 L Albumin 1.9 L C-Reactive Protein Arterial Blood Glucose Arterial Blood Ionized Calcium Urine WBC (Auto) Crossmatch 01/21/20 01/21/20 01/21/20 05:51 05:58 11:25 WBC RBC Hgb Hct MCHC RDW Plt Count MCH Lymph % (Auto) Lymph # Lymph # (Auto) Seg Neutrophils % Seg Neuts % (Manual) Lymphocytes % (Manual) Seg Neutrophils # Seg Neutrophils # Man Nucleated RBC % Lymphocytes # (Manual) Monocytes # (Manual) PT INR Heparin Anti-Xa Level POC ABG pO2 ABG pH ABG Hemoglobin ABG Oxyhemoglobin ABG pO2 ABG HCO3 ABG O2 Saturation ABG Base Excess ABG Potassium ABG Chloride ABG Glucose Oxyhemoglobin Sodium Potassium Chloride Carbon Dioxide 20 L BUN Creatinine 0.5 L Glucose 130 H POC Glucose 185 H 163 H Lactic Acid Calcium 7.6 L AST Phosphorus Total Protein 5.0 L Albumin 1.9 L C-Reactive Protein Arterial Blood Glucose Arterial Blood Ionized Calcium Urine WBC (Auto) Crossmatch 01/21/20 01/21/20 01/22/20 16:22 21:17 01:28 WBC RBC 2.60 L Hgb 8.0 L Hct 23.3 L MCHC RDW Plt Count MCH Lymph % (Auto) Lymph # Lymph # (Auto) Seg Neutrophils % 74.8 H Seg Neuts % (Manual) Lymphocytes % (Manual) Seg Neutrophils # Seg Neutrophils # Man Nucleated RBC % Lymphocytes # (Manual) Monocytes # (Manual) PT INR Heparin Anti-Xa Level POC ABG pO2 ABG pH ABG Hemoglobin ABG Oxyhemoglobin ABG pO2 ABG HCO3 ABG O2 Saturation ABG Base Excess ABG Potassium ABG Chloride ABG Glucose Oxyhemoglobin Sodium Potassium Chloride Carbon Dioxide BUN Creatinine Glucose POC Glucose 177 H 67 L Lactic Acid Calcium AST Phosphorus Total Protein Albumin C-Reactive Protein Arterial Blood Glucose Arterial Blood Ionized Calcium Urine WBC (Auto) Crossmatch 01/22/20 01/22/20 01/22/20 01:28 01:28 12:06 WBC RBC Hgb Hct MCHC RDW Plt Count MCH Lymph % (Auto) Lymph # Lymph # (Auto) Seg Neutrophils % Seg Neuts % (Manual) Lymphocytes % (Manual) Seg Neutrophils # Seg Neutrophils # Man Nucleated RBC % Lymphocytes # (Manual) Monocytes # (Manual) PT INR Heparin Anti-Xa Level POC ABG pO2 ABG pH ABG Hemoglobin ABG Oxyhemoglobin ABG pO2 ABG HCO3 ABG O2 Saturation ABG Base Excess ABG Potassium ABG Chloride ABG Glucose Oxyhemoglobin Sodium Potassium Chloride 107.6 H Carbon Dioxide BUN Creatinine 0.4 L Glucose 152 H POC Glucose 203 H 140 H Lactic Acid Calcium 7.5 L AST Phosphorus Total Protein 4.0 L Albumin 2.0 L C-Reactive Protein Arterial Blood Glucose Arterial Blood Ionized Calcium Urine WBC (Auto) Crossmatch 01/22/20 01/22/20 01/23/20 16:24 22:55 06:10 WBC RBC 2.68 L Hgb 8.6 L Hct 24.1 L MCHC 36 H RDW Plt Count MCH Lymph % (Auto) Lymph # Lymph # (Auto) Seg Neutrophils % Seg Neuts % (Manual) 71.0 H Lymphocytes % (Manual) Seg Neutrophils # Seg Neutrophils # Man Nucleated RBC % Lymphocytes # (Manual) Monocytes # (Manual) PT INR Heparin Anti-Xa Level POC ABG pO2 ABG pH ABG Hemoglobin ABG Oxyhemoglobin ABG pO2 ABG HCO3 ABG O2 Saturation ABG Base Excess ABG Potassium ABG Chloride ABG Glucose Oxyhemoglobin Sodium Potassium Chloride Carbon Dioxide BUN Creatinine Glucose POC Glucose 205 H 196 H Lactic Acid Calcium AST Phosphorus Total Protein Albumin C-Reactive Protein Arterial Blood Glucose Arterial Blood Ionized Calcium Urine WBC (Auto) Crossmatch 01/23/20 01/23/20 01/23/20 06:10 07:35 11:59 WBC RBC Hgb Hct MCHC RDW Plt Count MCH Lymph % (Auto) Lymph # Lymph # (Auto) Seg Neutrophils % Seg Neuts % (Manual) Lymphocytes % (Manual) Seg Neutrophils # Seg Neutrophils # Man Nucleated RBC % Lymphocytes # (Manual) Monocytes # (Manual) PT INR Heparin Anti-Xa Level POC ABG pO2 ABG pH ABG Hemoglobin ABG Oxyhemoglobin ABG pO2 ABG HCO3 ABG O2 Saturation ABG Base Excess ABG Potassium ABG Chloride ABG Glucose Oxyhemoglobin Sodium Potassium Chloride 108.8 H Carbon Dioxide BUN Creatinine 0.4 L Glucose 105 H POC Glucose 111 H 123 H Lactic Acid Calcium 8.0 L AST Phosphorus Total Protein 4.9 L D Albumin 2.0 L C-Reactive Protein Arterial Blood Glucose Arterial Blood Ionized Calcium Urine WBC (Auto) Crossmatch 01/23/20 01/24/20 01/24/20 22:45 11:24 16:41 WBC RBC Hgb Hct MCHC RDW Plt Count MCH Lymph % (Auto) Lymph # Lymph # (Auto) Seg Neutrophils % Seg Neuts % (Manual) Lymphocytes % (Manual) Seg Neutrophils # Seg Neutrophils # Man Nucleated RBC % Lymphocytes # (Manual) Monocytes # (Manual) PT INR Heparin Anti-Xa Level POC ABG pO2 ABG pH ABG Hemoglobin ABG Oxyhemoglobin ABG pO2 ABG HCO3 ABG O2 Saturation ABG Base Excess ABG Potassium ABG Chloride ABG Glucose Oxyhemoglobin Sodium Potassium Chloride Carbon Dioxide BUN Creatinine Glucose POC Glucose 180 H 182 H 177 H Lactic Acid Calcium AST Phosphorus Total Protein Albumin C-Reactive Protein Arterial Blood Glucose Arterial Blood Ionized Calcium Urine WBC (Auto) Crossmatch 01/24/20 01/25/20 01/25/20 23:11 07:12 11:35 WBC RBC Hgb Hct MCHC RDW Plt Count MCH Lymph % (Auto) Lymph # Lymph # (Auto) Seg Neutrophils % Seg Neuts % (Manual) Lymphocytes % (Manual) Seg Neutrophils # Seg Neutrophils # Man Nucleated RBC % Lymphocytes # (Manual) Monocytes # (Manual) PT INR Heparin Anti-Xa Level POC ABG pO2 ABG pH ABG Hemoglobin ABG Oxyhemoglobin ABG pO2 ABG HCO3 ABG O2 Saturation ABG Base Excess ABG Potassium ABG Chloride ABG Glucose Oxyhemoglobin Sodium Potassium Chloride Carbon Dioxide BUN Creatinine Glucose POC Glucose 142 H 135 H 142 H Lactic Acid Calcium AST Phosphorus Total Protein Albumin C-Reactive Protein Arterial Blood Glucose Arterial Blood Ionized Calcium Urine WBC (Auto) Crossmatch 01/25/20 01/26/20 01/26/20 16:33 00:04 11:35 WBC RBC Hgb Hct MCHC RDW Plt Count MCH Lymph % (Auto) Lymph # Lymph # (Auto) Seg Neutrophils % Seg Neuts % (Manual) Lymphocytes % (Manual) Seg Neutrophils # Seg Neutrophils # Man Nucleated RBC % Lymphocytes # (Manual) Monocytes # (Manual) PT INR Heparin Anti-Xa Level POC ABG pO2 ABG pH ABG Hemoglobin ABG Oxyhemoglobin ABG pO2 ABG HCO3 ABG O2 Saturation ABG Base Excess ABG Potassium ABG Chloride ABG Glucose Oxyhemoglobin Sodium Potassium Chloride Carbon Dioxide BUN Creatinine Glucose POC Glucose 247 H 233 H 200 H Lactic Acid Calcium AST Phosphorus Total Protein Albumin C-Reactive Protein Arterial Blood Glucose Arterial Blood Ionized Calcium Urine WBC (Auto) Crossmatch 01/26/20 01/26/20 01/26/20 16:30 16:30 17:19 WBC RBC Hgb 7.4 L Hct 22.0 L MCHC RDW Plt Count MCH Lymph % (Auto) Lymph # Lymph # (Auto) Seg Neutrophils % Seg Neuts % (Manual) Lymphocytes % (Manual) Seg Neutrophils # Seg Neutrophils # Man Nucleated RBC % Lymphocytes # (Manual) Monocytes # (Manual) PT 18.4 H INR 1.50 H Heparin Anti-Xa Level POC ABG pO2 ABG pH ABG Hemoglobin ABG Oxyhemoglobin ABG pO2 ABG HCO3 ABG O2 Saturation ABG Base Excess ABG Potassium ABG Chloride ABG Glucose Oxyhemoglobin Sodium Potassium Chloride Carbon Dioxide BUN Creatinine Glucose POC Glucose 67 L Lactic Acid Calcium AST Phosphorus Total Protein Albumin C-Reactive Protein Arterial Blood Glucose Arterial Blood Ionized Calcium Urine WBC (Auto) Crossmatch 01/26/20 01/26/20 01/27/20 20:24 21:32 00:16 WBC RBC Hgb Hct MCHC RDW Plt Count MCH Lymph % (Auto) Lymph # Lymph # (Auto) Seg Neutrophils % Seg Neuts % (Manual) Lymphocytes % (Manual) Seg Neutrophils # Seg Neutrophils # Man Nucleated RBC % Lymphocytes # (Manual) Monocytes # (Manual) PT INR Heparin Anti-Xa Level POC ABG pO2 51.8 L ABG pH ABG Hemoglobin 8.5 L ABG Oxyhemoglobin 84.7 L ABG pO2 ABG HCO3 ABG O2 Saturation ABG Base Excess ABG Potassium ABG Chloride ABG Glucose Oxyhemoglobin Sodium Potassium Chloride Carbon Dioxide BUN Creatinine Glucose POC Glucose 162 H 141 H Lactic Acid Calcium AST Phosphorus Total Protein Albumin C-Reactive Protein Arterial Blood Glucose Arterial Blood Ionized Calcium Urine WBC (Auto) Crossmatch 01/27/20 01/27/20 01/27/20 01:42 02:18 05:57 WBC RBC Hgb Hct MCHC RDW Plt Count MCH Lymph % (Auto) Lymph # Lymph # (Auto) Seg Neutrophils % Seg Neuts % (Manual) Lymphocytes % (Manual) Seg Neutrophils # Seg Neutrophils # Man Nucleated RBC % Lymphocytes # (Manual) Monocytes # (Manual) PT INR Heparin Anti-Xa Level 2.00 H POC ABG pO2 ABG pH ABG Hemoglobin ABG Oxyhemoglobin ABG pO2 ABG HCO3 ABG O2 Saturation ABG Base Excess ABG Potassium ABG Chloride ABG Glucose Oxyhemoglobin Sodium Potassium Chloride Carbon Dioxide BUN Creatinine Glucose POC Glucose 183 H 124 H Lactic Acid Calcium AST Phosphorus Total Protein Albumin C-Reactive Protein Arterial Blood Glucose Arterial Blood Ionized Calcium Urine WBC (Auto) Crossmatch 01/27/20 01/27/20 01/27/20 06:30 06:30 12:23 WBC RBC 2.75 L Hgb 8.4 L Hct 24.9 L MCHC RDW 16.0 H Plt Count 474 H MCH Lymph % (Auto) 12.7 L Lymph # Lymph # (Auto) Seg Neutrophils % 83.2 H Seg Neuts % (Manual) Lymphocytes % (Manual) Seg Neutrophils # 8.4 H Seg Neutrophils # Man Nucleated RBC % Lymphocytes # (Manual) Monocytes # (Manual) PT INR Heparin Anti-Xa Level POC ABG pO2 ABG pH ABG Hemoglobin ABG Oxyhemoglobin ABG pO2 ABG HCO3 ABG O2 Saturation ABG Base Excess ABG Potassium ABG Chloride ABG Glucose Oxyhemoglobin Sodium Potassium 3.5 L Chloride 110.2 H Carbon Dioxide BUN Creatinine 0.4 L Glucose 101 H POC Glucose 126 H Lactic Acid Calcium 7.8 L AST Phosphorus Total Protein Albumin C-Reactive Protein Arterial Blood Glucose Arterial Blood Ionized Calcium Urine WBC (Auto) Crossmatch 01/27/20 01/27/20 01/28/20 17:31 23:40 00:00 WBC RBC Hgb Hct MCHC RDW Plt Count MCH Lymph % (Auto) Lymph # Lymph # (Auto) Seg Neutrophils % Seg Neuts % (Manual) Lymphocytes % (Manual) Seg Neutrophils # Seg Neutrophils # Man Nucleated RBC % Lymphocytes # (Manual) Monocytes # (Manual) PT INR Heparin Anti-Xa Level 2.00 H POC ABG pO2 ABG pH ABG Hemoglobin ABG Oxyhemoglobin ABG pO2 ABG HCO3 ABG O2 Saturation ABG Base Excess ABG Potassium ABG Chloride ABG Glucose Oxyhemoglobin Sodium Potassium Chloride Carbon Dioxide BUN Creatinine Glucose POC Glucose 133 H 136 H Lactic Acid Calcium AST Phosphorus Total Protein Albumin C-Reactive Protein Arterial Blood Glucose Arterial Blood Ionized Calcium Urine WBC (Auto) Crossmatch 01/28/20 01/28/20 01/28/20 04:26 04:26 05:35 WBC RBC Hgb 9.6 L Hct 28.5 L MCHC RDW Plt Count 508 H MCH Lymph % (Auto) Lymph # Lymph # (Auto) Seg Neutrophils % Seg Neuts % (Manual) Lymphocytes % (Manual) Seg Neutrophils # Seg Neutrophils # Man Nucleated RBC % Lymphocytes # (Manual) Monocytes # (Manual) PT INR Heparin Anti-Xa Level POC ABG pO2 ABG pH ABG Hemoglobin ABG Oxyhemoglobin ABG pO2 ABG HCO3 ABG O2 Saturation ABG Base Excess ABG Potassium ABG Chloride ABG Glucose Oxyhemoglobin Sodium Potassium Chloride Carbon Dioxide 19 L BUN 20 H Creatinine 0.5 L Glucose 103 H POC Glucose 135 H Lactic Acid Calcium 7.9 L AST Phosphorus Total Protein Albumin C-Reactive Protein Arterial Blood Glucose Arterial Blood Ionized Calcium Urine WBC (Auto) Crossmatch 01/28/20 01/28/20 01/28/20 08:50 11:10 11:51 WBC RBC Hgb Hct MCHC RDW Plt Count MCH Lymph % (Auto) Lymph # Lymph # (Auto) Seg Neutrophils % Seg Neuts % (Manual) Lymphocytes % (Manual) Seg Neutrophils # Seg Neutrophils # Man Nucleated RBC % Lymphocytes # (Manual) Monocytes # (Manual) PT INR Heparin Anti-Xa Level 0.74 H POC ABG pO2 67.2 L ABG pH ABG Hemoglobin 9.3 L ABG Oxyhemoglobin ABG pO2 ABG HCO3 ABG O2 Saturation ABG Base Excess ABG Potassium ABG Chloride ABG Glucose Oxyhemoglobin Sodium Potassium Chloride Carbon Dioxide BUN Creatinine Glucose POC Glucose 160 H Lactic Acid Calcium AST Phosphorus Total Protein Albumin C-Reactive Protein Arterial Blood Glucose Arterial Blood Ionized Calcium Urine WBC (Auto) Crossmatch 01/28/20 01/28/20 01/29/20 17:19 23:53 03:52 WBC RBC Hgb Hct MCHC RDW Plt Count MCH Lymph % (Auto) Lymph # Lymph # (Auto) Seg Neutrophils % Seg Neuts % (Manual) Lymphocytes % (Manual) Seg Neutrophils # Seg Neutrophils # Man Nucleated RBC % Lymphocytes # (Manual) Monocytes # (Manual) PT INR Heparin Anti-Xa Level POC ABG pO2 ABG pH 7.510 H ABG Hemoglobin 7.3 L ABG Oxyhemoglobin ABG pO2 357.0 H ABG HCO3 19.6 L ABG O2 Saturation 99.6 H ABG Base Excess -2.9 L ABG Potassium ABG Chloride ABG Glucose Oxyhemoglobin Sodium Potassium Chloride Carbon Dioxide BUN Creatinine Glucose POC Glucose 177 H 142 H Lactic Acid Calcium AST Phosphorus Total Protein Albumin C-Reactive Protein Arterial Blood Glucose Arterial Blood Ionized Calcium Urine WBC (Auto) Crossmatch 01/29/20 01/29/20 01/29/20 04:58 04:58 06:01 WBC 13.1 H RBC 2.75 L Hgb 8.6 L Hct 25.6 L MCHC RDW 17.7 H Plt Count MCH Lymph % (Auto) Lymph # Lymph # (Auto) Seg Neutrophils % Seg Neuts % (Manual) 91.0 H Lymphocytes % (Manual) 6.0 L Seg Neutrophils # Seg Neutrophils # Man 11.9 H Nucleated RBC % 1.0 H Lymphocytes # (Manual) 0.8 L Monocytes # (Manual) PT INR Heparin Anti-Xa Level POC ABG pO2 ABG pH ABG Hemoglobin ABG Oxyhemoglobin ABG pO2 ABG HCO3 ABG O2 Saturation ABG Base Excess ABG Potassium ABG Chloride ABG Glucose Oxyhemoglobin Sodium 148 H Potassium 3.5 L D Chloride 113.2 H Carbon Dioxide 21 L BUN 20 H Creatinine Glucose 137 H POC Glucose 167 H Lactic Acid Calcium 8.1 L AST Phosphorus Total Protein Albumin C-Reactive Protein Arterial Blood Glucose Arterial Blood Ionized Calcium Urine WBC (Auto) Crossmatch 01/29/20 01/29/20 01/29/20 11:45 17:52 23:49 WBC RBC Hgb Hct MCHC RDW Plt Count MCH Lymph % (Auto) Lymph # Lymph # (Auto) Seg Neutrophils % Seg Neuts % (Manual) Lymphocytes % (Manual) Seg Neutrophils # Seg Neutrophils # Man Nucleated RBC % Lymphocytes # (Manual) Monocytes # (Manual) PT INR Heparin Anti-Xa Level POC ABG pO2 ABG pH ABG Hemoglobin ABG Oxyhemoglobin ABG pO2 ABG HCO3 ABG O2 Saturation ABG Base Excess ABG Potassium ABG Chloride ABG Glucose Oxyhemoglobin Sodium Potassium Chloride Carbon Dioxide BUN Creatinine Glucose POC Glucose 185 H 226 H 141 H Lactic Acid Calcium AST Phosphorus Total Protein Albumin C-Reactive Protein Arterial Blood Glucose Arterial Blood Ionized Calcium Urine WBC (Auto) Crossmatch 01/29/20 01/30/20 01/30/20 Unknown 03:24 04:00 WBC RBC Hgb 7.8 L Hct 23.5 L MCHC RDW Plt Count MCH Lymph % (Auto) Lymph # Lymph # (Auto) Seg Neutrophils % Seg Neuts % (Manual) Lymphocytes % (Manual) Seg Neutrophils # Seg Neutrophils # Man Nucleated RBC % Lymphocytes # (Manual) Monocytes # (Manual) PT INR Heparin Anti-Xa Level POC ABG pO2 ABG pH 7.485 H ABG Hemoglobin 6.7 L ABG Oxyhemoglobin ABG pO2 102.0 H ABG HCO3 ABG O2 Saturation ABG Base Excess ABG Potassium ABG Chloride ABG Glucose Oxyhemoglobin Sodium Potassium Chloride Carbon Dioxide BUN Creatinine Glucose POC Glucose Lactic Acid Calcium AST Phosphorus Total Protein Albumin C-Reactive Protein 14.80 H Arterial Blood Glucose Arterial Blood Ionized Calcium Urine WBC (Auto) Crossmatch 01/30/20 01/30/20 01/30/20 05:50 11:15 17:07 WBC RBC Hgb Hct MCHC RDW Plt Count MCH Lymph % (Auto) Lymph # Lymph # (Auto) Seg Neutrophils % Seg Neuts % (Manual) Lymphocytes % (Manual) Seg Neutrophils # Seg Neutrophils # Man Nucleated RBC % Lymphocytes # (Manual) Monocytes # (Manual) PT INR Heparin Anti-Xa Level POC ABG pO2 ABG pH ABG Hemoglobin ABG Oxyhemoglobin ABG pO2 ABG HCO3 ABG O2 Saturation ABG Base Excess ABG Potassium ABG Chloride ABG Glucose Oxyhemoglobin Sodium Potassium Chloride Carbon Dioxide BUN Creatinine Glucose POC Glucose 122 H 207 H 124 H Lactic Acid Calcium AST Phosphorus Total Protein Albumin C-Reactive Protein Arterial Blood Glucose Arterial Blood Ionized Calcium Urine WBC (Auto) Crossmatch 01/30/20 01/31/20 01/31/20 17:08 00:10 04:52 WBC RBC Hgb Hct MCHC RDW Plt Count MCH Lymph % (Auto) Lymph # Lymph # (Auto) Seg Neutrophils % Seg Neuts % (Manual) Lymphocytes % (Manual) Seg Neutrophils # Seg Neutrophils # Man Nucleated RBC % Lymphocytes # (Manual) Monocytes # (Manual) PT INR Heparin Anti-Xa Level POC ABG pO2 ABG pH 7.504 H 7.486 H ABG Hemoglobin 7.4 L 6.2 L ABG Oxyhemoglobin ABG pO2 169.2 H 121.7 H ABG HCO3 27.1 H ABG O2 Saturation 99.1 H ABG Base Excess 3.4 H ABG Potassium ABG Chloride ABG Glucose Oxyhemoglobin Sodium Potassium Chloride Carbon Dioxide BUN Creatinine Glucose POC Glucose 191 H Lactic Acid Calcium AST Phosphorus Total Protein Albumin C-Reactive Protein Arterial Blood Glucose Arterial Blood Ionized Calcium Urine WBC (Auto) Crossmatch 01/31/20 01/31/20 01/31/20 05:37 11:59 12:40 WBC RBC 2.41 L Hgb 7.5 L Hct 22.3 L MCHC RDW 22.2 H Plt Count MCH Lymph % (Auto) Lymph # Lymph # (Auto) Seg Neutrophils % Seg Neuts % (Manual) 94.0 H Lymphocytes % (Manual) 2.0 L Seg Neutrophils # Seg Neutrophils # Man 9.4 H Nucleated RBC % Lymphocytes # (Manual) 0.2 L Monocytes # (Manual) PT INR Heparin Anti-Xa Level POC ABG pO2 ABG pH ABG Hemoglobin ABG Oxyhemoglobin ABG pO2 ABG HCO3 ABG O2 Saturation ABG Base Excess ABG Potassium ABG Chloride ABG Glucose Oxyhemoglobin Sodium Potassium Chloride Carbon Dioxide BUN Creatinine Glucose POC Glucose 175 H 220 H Lactic Acid Calcium AST Phosphorus Total Protein Albumin C-Reactive Protein Arterial Blood Glucose Arterial Blood Ionized Calcium Urine WBC (Auto) Crossmatch 01/31/20 01/31/20 01/31/20 12:40 14:40 18:18 WBC RBC Hgb Hct MCHC RDW Plt Count MCH Lymph % (Auto) Lymph # Lymph # (Auto) Seg Neutrophils % Seg Neuts % (Manual) Lymphocytes % (Manual) Seg Neutrophils # Seg Neutrophils # Man Nucleated RBC % Lymphocytes # (Manual) Monocytes # (Manual) PT INR Heparin Anti-Xa Level POC ABG pO2 124.7 H ABG pH 7.542 H ABG Hemoglobin 7.8 L ABG Oxyhemoglobin ABG pO2 ABG HCO3 ABG O2 Saturation ABG Base Excess ABG Potassium ABG Chloride ABG Glucose Oxyhemoglobin Sodium 151 H Potassium 2.1 L* D Chloride 108.9 H Carbon Dioxide BUN 22 H Creatinine Glucose 194 H POC Glucose 181 H Lactic Acid Calcium 8.1 L AST Phosphorus Total Protein 4.8 L Albumin 2.3 L C-Reactive Protein Arterial Blood Glucose Arterial Blood Ionized Calcium Urine WBC (Auto) Crossmatch 02/01/20 02/01/20 02/01/20 00:11 03:14 04:32 WBC 11.9 H RBC 2.47 L Hgb 7.6 L Hct 22.8 L MCHC RDW 22.7 H Plt Count MCH Lymph % (Auto) Lymph # Lymph # (Auto) Seg Neutrophils % Seg Neuts % (Manual) 90.0 H Lymphocytes % (Manual) 5.0 L Seg Neutrophils # Seg Neutrophils # Man 10.7 H Nucleated RBC % Lymphocytes # (Manual) 0.6 L Monocytes # (Manual) PT INR Heparin Anti-Xa Level POC ABG pO2 ABG pH 7.564 H ABG Hemoglobin 7.6 L ABG Oxyhemoglobin ABG pO2 124.1 H ABG HCO3 29.6 H ABG O2 Saturation ABG Base Excess 7.0 H ABG Potassium ABG Chloride ABG Glucose Oxyhemoglobin Sodium Potassium Chloride Carbon Dioxide BUN Creatinine Glucose POC Glucose 190 H Lactic Acid Calcium AST Phosphorus Total Protein Albumin C-Reactive Protein Arterial Blood Glucose Arterial Blood Ionized Calcium Urine WBC (Auto) Crossmatch 02/01/20 02/01/20 02/01/20 04:32 05:28 11:56 WBC RBC Hgb Hct MCHC RDW Plt Count MCH Lymph % (Auto) Lymph # Lymph # (Auto) Seg Neutrophils % Seg Neuts % (Manual) Lymphocytes % (Manual) Seg Neutrophils # Seg Neutrophils # Man Nucleated RBC % Lymphocytes # (Manual) Monocytes # (Manual) PT INR Heparin Anti-Xa Level POC ABG pO2 ABG pH ABG Hemoglobin ABG Oxyhemoglobin ABG pO2 ABG HCO3 ABG O2 Saturation ABG Base Excess ABG Potassium ABG Chloride ABG Glucose Oxyhemoglobin Sodium 149 H Potassium 2.6 L* D Chloride Carbon Dioxide 33 H BUN 23 H Creatinine 0.5 L Glucose 174 H POC Glucose 187 H 195 H Lactic Acid Calcium 8.0 L AST Phosphorus 1.60 L Total Protein Albumin C-Reactive Protein Arterial Blood Glucose Arterial Blood Ionized Calcium Urine WBC (Auto) Crossmatch 02/01/20 02/01/20 02/02/20 18:15 23:35 04:33 WBC RBC Hgb Hct MCHC RDW Plt Count MCH Lymph % (Auto) Lymph # Lymph # (Auto) Seg Neutrophils % Seg Neuts % (Manual) Lymphocytes % (Manual) Seg Neutrophils # Seg Neutrophils # Man Nucleated RBC % Lymphocytes # (Manual) Monocytes # (Manual) PT INR Heparin Anti-Xa Level POC ABG pO2 ABG pH 7.549 H ABG Hemoglobin 9.8 L ABG Oxyhemoglobin ABG pO2 ABG HCO3 ABG O2 Saturation ABG Base Excess ABG Potassium ABG Chloride ABG Glucose Oxyhemoglobin Sodium Potassium Chloride Carbon Dioxide BUN Creatinine Glucose POC Glucose 226 H 252 H Lactic Acid Calcium AST Phosphorus Total Protein Albumin C-Reactive Protein Arterial Blood Glucose Arterial Blood Ionized Calcium Urine WBC (Auto) Crossmatch 02/02/20 02/02/20 02/02/20 05:25 05:25 05:40 WBC 15.5 H RBC 2.43 L Hgb 7.6 L Hct 22.9 L MCHC RDW 23.6 H Plt Count MCH Lymph % (Auto) Lymph # Lymph # (Auto) Seg Neutrophils % Seg Neuts % (Manual) 89.0 H Lymphocytes % (Manual) 3.0 L Seg Neutrophils # Seg Neutrophils # Man 13.8 H Nucleated RBC % Lymphocytes # (Manual) 0.5 L Monocytes # (Manual) 0.9 H PT INR Heparin Anti-Xa Level POC ABG pO2 ABG pH ABG Hemoglobin ABG Oxyhemoglobin ABG pO2 ABG HCO3 ABG O2 Saturation ABG Base Excess ABG Potassium ABG Chloride ABG Glucose Oxyhemoglobin Sodium Potassium 2.6 L* Chloride Carbon Dioxide 33 H BUN 26 H Creatinine Glucose 175 H POC Glucose 181 H Lactic Acid Calcium 7.9 L AST Phosphorus Total Protein Albumin C-Reactive Protein Arterial Blood Glucose Arterial Blood Ionized Calcium Urine WBC (Auto) Crossmatch 02/02/20 02/02/20 02/02/20 11:55 14:45 17:18 WBC RBC Hgb Hct MCHC RDW Plt Count MCH Lymph % (Auto) Lymph # Lymph # (Auto) Seg Neutrophils % Seg Neuts % (Manual) Lymphocytes % (Manual) Seg Neutrophils # Seg Neutrophils # Man Nucleated RBC % Lymphocytes # (Manual) Monocytes # (Manual) PT INR Heparin Anti-Xa Level POC ABG pO2 ABG pH 7.56 H ABG Hemoglobin 7.6 L ABG Oxyhemoglobin ABG pO2 ABG HCO3 ABG O2 Saturation ABG Base Excess ABG Potassium ABG Chloride ABG Glucose Oxyhemoglobin Sodium Potassium Chloride Carbon Dioxide BUN Creatinine Glucose POC Glucose 226 H 227 H Lactic Acid Calcium AST Phosphorus Total Protein Albumin C-Reactive Protein Arterial Blood Glucose Arterial Blood Ionized Calcium Urine WBC (Auto) Crossmatch 02/02/20 02/03/20 02/03/20 20:54 00:02 05:14 WBC 18.7 H RBC 2.45 L Hgb 7.6 L Hct 23.2 L MCHC RDW 23.5 H Plt Count MCH Lymph % (Auto) Lymph # Lymph # (Auto) Seg Neutrophils % Seg Neuts % (Manual) 94.0 H Lymphocytes % (Manual) 3.0 L Seg Neutrophils # Seg Neutrophils # Man 17.6 H Nucleated RBC % Lymphocytes # (Manual) 0.6 L Monocytes # (Manual) PT INR Heparin Anti-Xa Level POC ABG pO2 ABG pH ABG Hemoglobin ABG Oxyhemoglobin ABG pO2 ABG HCO3 ABG O2 Saturation ABG Base Excess ABG Potassium ABG Chloride ABG Glucose Oxyhemoglobin Sodium Potassium 3.2 L D Chloride Carbon Dioxide BUN Creatinine Glucose POC Glucose 204 H Lactic Acid Calcium AST Phosphorus Total Protein Albumin C-Reactive Protein Arterial Blood Glucose Arterial Blood Ionized Calcium Urine WBC (Auto) Crossmatch 02/03/20 02/03/20 02/03/20 05:14 05:14 05:20 WBC RBC Hgb Hct MCHC RDW Plt Count MCH Lymph % (Auto) Lymph # Lymph # (Auto) Seg Neutrophils % Seg Neuts % (Manual) Lymphocytes % (Manual) Seg Neutrophils # Seg Neutrophils # Man Nucleated RBC % Lymphocytes # (Manual) Monocytes # (Manual) PT INR Heparin Anti-Xa Level POC ABG pO2 ABG pH ABG Hemoglobin ABG Oxyhemoglobin ABG pO2 ABG HCO3 ABG O2 Saturation ABG Base Excess ABG Potassium ABG Chloride ABG Glucose Oxyhemoglobin Sodium Potassium 3.1 L Chloride Carbon Dioxide 33 H BUN 29 H Creatinine 0.5 L Glucose 160 H POC Glucose 146 H Lactic Acid Calcium 7.9 L AST Phosphorus 2.30 L Total Protein 4.8 L Albumin 2.4 L C-Reactive Protein Arterial Blood Glucose Arterial Blood Ionized Calcium Urine WBC (Auto) Crossmatch 02/03/20 02/03/20 02/03/20 12:35 18:14 23:26 WBC RBC Hgb Hct MCHC RDW Plt Count MCH Lymph % (Auto) Lymph # Lymph # (Auto) Seg Neutrophils % Seg Neuts % (Manual) Lymphocytes % (Manual) Seg Neutrophils # Seg Neutrophils # Man Nucleated RBC % Lymphocytes # (Manual) Monocytes # (Manual) PT INR Heparin Anti-Xa Level POC ABG pO2 ABG pH ABG Hemoglobin ABG Oxyhemoglobin ABG pO2 ABG HCO3 ABG O2 Saturation ABG Base Excess ABG Potassium ABG Chloride ABG Glucose Oxyhemoglobin Sodium Potassium Chloride Carbon Dioxide BUN Creatinine Glucose POC Glucose 219 H 248 H 173 H Lactic Acid Calcium AST Phosphorus Total Protein Albumin C-Reactive Protein Arterial Blood Glucose Arterial Blood Ionized Calcium Urine WBC (Auto) Crossmatch 02/04/20 02/04/20 02/04/20 05:34 05:36 06:51 WBC RBC Hgb Hct MCHC RDW Plt Count MCH Lymph % (Auto) Lymph # Lymph # (Auto) Seg Neutrophils % Seg Neuts % (Manual) Lymphocytes % (Manual) Seg Neutrophils # Seg Neutrophils # Man Nucleated RBC % Lymphocytes # (Manual) Monocytes # (Manual) PT INR Heparin Anti-Xa Level POC ABG pO2 ABG pH ABG Hemoglobin ABG Oxyhemoglobin ABG pO2 ABG HCO3 ABG O2 Saturation ABG Base Excess ABG Potassium ABG Chloride ABG Glucose Oxyhemoglobin Sodium Potassium Chloride Carbon Dioxide BUN Creatinine Glucose POC Glucose 56 L 64 L 127 H Lactic Acid Calcium AST Phosphorus Total Protein Albumin C-Reactive Protein Arterial Blood Glucose Arterial Blood Ionized Calcium Urine WBC (Auto) Crossmatch 02/04/20 02/04/20 02/04/20 11:57 13:42 13:53 WBC 19.2 H RBC 2.48 L Hgb 7.8 L Hct 23.5 L MCHC RDW 24.2 H Plt Count MCH Lymph % (Auto) Lymph # Lymph # (Auto) Seg Neutrophils % Seg Neuts % (Manual) 97.0 H Lymphocytes % (Manual) 2.0 L Seg Neutrophils # Seg Neutrophils # Man 18.6 H Nucleated RBC % Lymphocytes # (Manual) 0.4 L Monocytes # (Manual) PT INR Heparin Anti-Xa Level POC ABG pO2 118.2 H ABG pH 7.525 H ABG Hemoglobin 8.7 L ABG Oxyhemoglobin ABG pO2 ABG HCO3 ABG O2 Saturation ABG Base Excess ABG Potassium 2.8 L ABG Chloride ABG Glucose 185 H Oxyhemoglobin Sodium Potassium Chloride Carbon Dioxide BUN Creatinine Glucose POC Glucose 224 H Lactic Acid Calcium AST Phosphorus Total Protein Albumin C-Reactive Protein Arterial Blood Glucose 185 H Arterial Blood Ionized Calcium 4.5 L Urine WBC (Auto) Crossmatch 02/04/20 02/04/20 02/04/20 13:53 18:15 23:35 WBC RBC Hgb Hct MCHC RDW Plt Count MCH Lymph % (Auto) Lymph # Lymph # (Auto) Seg Neutrophils % Seg Neuts % (Manual) Lymphocytes % (Manual) Seg Neutrophils # Seg Neutrophils # Man Nucleated RBC % Lymphocytes # (Manual) Monocytes # (Manual) PT INR Heparin Anti-Xa Level POC ABG pO2 ABG pH ABG Hemoglobin ABG Oxyhemoglobin ABG pO2 ABG HCO3 ABG O2 Saturation ABG Base Excess ABG Potassium ABG Chloride ABG Glucose Oxyhemoglobin Sodium 147 H Potassium 2.8 L* Chloride Carbon Dioxide 38 H BUN 33 H Creatinine 0.5 L Glucose 202 H POC Glucose 215 H 197 H Lactic Acid Calcium AST Phosphorus Total Protein Albumin C-Reactive Protein Arterial Blood Glucose Arterial Blood Ionized Calcium Urine WBC (Auto) Crossmatch 02/05/20 02/05/20 02/05/20 01:03 04:00 04:00 WBC 26.7 H RBC 2.59 L Hgb 8.1 L Hct 24.6 L MCHC RDW 24.1 H Plt Count MCH Lymph % (Auto) 1.6 L Lymph # Lymph # (Auto) 0.4 L Seg Neutrophils % Seg Neuts % (Manual) Lymphocytes % (Manual) Seg Neutrophils # 25.9 H Seg Neutrophils # Man Nucleated RBC % Lymphocytes # (Manual) Monocytes # (Manual) PT INR Heparin Anti-Xa Level POC ABG pO2 ABG pH ABG Hemoglobin 7.1 L ABG Oxyhemoglobin ABG pO2 50.7 L ABG HCO3 29.6 H ABG O2 Saturation 82.7 L ABG Base Excess 4.8 H ABG Potassium ABG Chloride ABG Glucose Oxyhemoglobin 81.0 L Sodium 146 H Potassium Chloride Carbon Dioxide 32 H BUN 35 H Creatinine 0.5 L Glucose 226 H POC Glucose Lactic Acid Calcium AST Phosphorus Total Protein 5.1 L Albumin 2.2 L C-Reactive Protein Arterial Blood Glucose Arterial Blood Ionized Calcium Urine WBC (Auto) Crossmatch 02/05/20 02/05/20 02/06/20 05:32 17:56 00:19 WBC RBC Hgb Hct MCHC RDW Plt Count MCH Lymph % (Auto) Lymph # Lymph # (Auto) Seg Neutrophils % Seg Neuts % (Manual) Lymphocytes % (Manual) Seg Neutrophils # Seg Neutrophils # Man Nucleated RBC % Lymphocytes # (Manual) Monocytes # (Manual) PT INR Heparin Anti-Xa Level POC ABG pO2 ABG pH ABG Hemoglobin ABG Oxyhemoglobin ABG pO2 ABG HCO3 ABG O2 Saturation ABG Base Excess ABG Potassium ABG Chloride ABG Glucose Oxyhemoglobin Sodium Potassium Chloride Carbon Dioxide BUN Creatinine Glucose POC Glucose 239 H 175 H 309 H Lactic Acid Calcium AST Phosphorus Total Protein Albumin C-Reactive Protein Arterial Blood Glucose Arterial Blood Ionized Calcium Urine WBC (Auto) Crossmatch 02/06/20 02/06/20 02/06/20 04:26 04:27 05:11 WBC RBC Hgb Hct MCHC RDW Plt Count MCH Lymph % (Auto) Lymph # Lymph # (Auto) Seg Neutrophils % Seg Neuts % (Manual) Lymphocytes % (Manual) Seg Neutrophils # Seg Neutrophils # Man Nucleated RBC % Lymphocytes # (Manual) Monocytes # (Manual) PT INR Heparin Anti-Xa Level POC ABG pO2 175.3 H 157.2 H ABG pH 7.502 H 7.551 H ABG Hemoglobin 10.8 L 7.3 L ABG Oxyhemoglobin 98.3 H ABG pO2 ABG HCO3 ABG O2 Saturation ABG Base Excess ABG Potassium 3.3 L ABG Chloride 109.0 H ABG Glucose 148 H Oxyhemoglobin Sodium 148 H Potassium 3.0 L Chloride 107.3 H Carbon Dioxide 33 H BUN 33 H Creatinine 0.5 L Glucose 283 H POC Glucose Lactic Acid Calcium 7.9 L AST Phosphorus Total Protein 3.6 L D Albumin 1.2 L C-Reactive Protein Arterial Blood Glucose 148 H Arterial Blood Ionized Calcium Urine WBC (Auto) Crossmatch 02/06/20 02/06/20 02/06/20 05:40 08:45 11:52 WBC 16.3 H RBC 2.12 L Hgb 6.6 L Hct 20.3 L MCHC RDW 24.4 H Plt Count MCH Lymph % (Auto) Lymph # Lymph # (Auto) Seg Neutrophils % Seg Neuts % (Manual) 98.0 H Lymphocytes % (Manual) 1.0 L Seg Neutrophils # Seg Neutrophils # Man 16.0 H Nucleated RBC % Lymphocytes # (Manual) 0.2 L Monocytes # (Manual) PT INR Heparin Anti-Xa Level POC ABG pO2 ABG pH ABG Hemoglobin ABG Oxyhemoglobin ABG pO2 ABG HCO3 ABG O2 Saturation ABG Base Excess ABG Potassium ABG Chloride ABG Glucose Oxyhemoglobin Sodium Potassium Chloride Carbon Dioxide BUN Creatinine Glucose POC Glucose 347 H 132 H Lactic Acid Calcium AST Phosphorus Total Protein Albumin C-Reactive Protein Arterial Blood Glucose Arterial Blood Ionized Calcium Urine WBC (Auto) Crossmatch 02/06/20 02/07/20 02/07/20 18:26 00:08 05:41 WBC RBC Hgb Hct MCHC RDW Plt Count MCH Lymph % (Auto) Lymph # Lymph # (Auto) Seg Neutrophils % Seg Neuts % (Manual) Lymphocytes % (Manual) Seg Neutrophils # Seg Neutrophils # Man Nucleated RBC % Lymphocytes # (Manual) Monocytes # (Manual) PT INR Heparin Anti-Xa Level POC ABG pO2 ABG pH ABG Hemoglobin ABG Oxyhemoglobin ABG pO2 ABG HCO3 ABG O2 Saturation ABG Base Excess ABG Potassium ABG Chloride ABG Glucose Oxyhemoglobin Sodium Potassium Chloride Carbon Dioxide BUN Creatinine Glucose POC Glucose 114 H 111 H 164 H Lactic Acid Calcium AST Phosphorus Total Protein Albumin C-Reactive Protein Arterial Blood Glucose Arterial Blood Ionized Calcium Urine WBC (Auto) Crossmatch 02/07/20 02/07/20 02/07/20 11:49 17:56 23:27 WBC RBC Hgb Hct MCHC RDW Plt Count MCH Lymph % (Auto) Lymph # Lymph # (Auto) Seg Neutrophils % Seg Neuts % (Manual) Lymphocytes % (Manual) Seg Neutrophils # Seg Neutrophils # Man Nucleated RBC % Lymphocytes # (Manual) Monocytes # (Manual) PT INR Heparin Anti-Xa Level POC ABG pO2 ABG pH ABG Hemoglobin ABG Oxyhemoglobin ABG pO2 ABG HCO3 ABG O2 Saturation ABG Base Excess ABG Potassium ABG Chloride ABG Glucose Oxyhemoglobin Sodium Potassium Chloride Carbon Dioxide BUN Creatinine Glucose POC Glucose 146 H 140 H 164 H Lactic Acid Calcium AST Phosphorus Total Protein Albumin C-Reactive Protein Arterial Blood Glucose Arterial Blood Ionized Calcium Urine WBC (Auto) Crossmatch 02/08/20 02/08/20 02/08/20 03:55 04:46 04:46 WBC RBC 2.30 L Hgb 7.3 L Hct 22.0 L MCHC RDW 23.9 H Plt Count MCH Lymph % (Auto) 8.5 L Lymph # Lymph # (Auto) 0.8 L Seg Neutrophils % 87.6 H Seg Neuts % (Manual) Lymphocytes % (Manual) Seg Neutrophils # 8.7 H Seg Neutrophils # Man Nucleated RBC % Lymphocytes # (Manual) Monocytes # (Manual) PT INR Heparin Anti-Xa Level POC ABG pO2 112.8 H ABG pH 7.511 H ABG Hemoglobin 7.8 L ABG Oxyhemoglobin ABG pO2 ABG HCO3 ABG O2 Saturation ABG Base Excess ABG Potassium 2.9 L ABG Chloride ABG Glucose 112 H Oxyhemoglobin Sodium Potassium 3.1 L Chloride Carbon Dioxide 31 H BUN 29 H Creatinine 0.3 L Glucose 108 H POC Glucose Lactic Acid Calcium AST Phosphorus Total Protein Albumin C-Reactive Protein Arterial Blood Glucose 112 H Arterial Blood Ionized Calcium Urine WBC (Auto) Crossmatch 02/08/20 02/08/20 02/08/20 05:31 10:15 12:10 WBC RBC Hgb Hct MCHC RDW Plt Count MCH Lymph % (Auto) Lymph # Lymph # (Auto) Seg Neutrophils % Seg Neuts % (Manual) Lymphocytes % (Manual) Seg Neutrophils # Seg Neutrophils # Man Nucleated RBC % Lymphocytes # (Manual) Monocytes # (Manual) PT INR Heparin Anti-Xa Level POC ABG pO2 ABG pH ABG Hemoglobin ABG Oxyhemoglobin ABG pO2 ABG HCO3 ABG O2 Saturation ABG Base Excess ABG Potassium ABG Chloride ABG Glucose Oxyhemoglobin Sodium Potassium Chloride Carbon Dioxide BUN Creatinine Glucose POC Glucose 117 H 164 H 170 H Lactic Acid Calcium AST Phosphorus Total Protein Albumin C-Reactive Protein Arterial Blood Glucose Arterial Blood Ionized Calcium Urine WBC (Auto) Crossmatch 02/08/20 02/08/20 02/09/20 12:23 23:50 03:04 WBC RBC Hgb Hct MCHC RDW Plt Count MCH Lymph % (Auto) Lymph # Lymph # (Auto) Seg Neutrophils % Seg Neuts % (Manual) Lymphocytes % (Manual) Seg Neutrophils # Seg Neutrophils # Man Nucleated RBC % Lymphocytes # (Manual) Monocytes # (Manual) PT INR Heparin Anti-Xa Level POC ABG pO2 ABG pH 7.501 H ABG Hemoglobin 7.5 L ABG Oxyhemoglobin ABG pO2 ABG HCO3 ABG O2 Saturation ABG Base Excess ABG Potassium ABG Chloride ABG Glucose 143 H Oxyhemoglobin Sodium Potassium Chloride Carbon Dioxide BUN Creatinine Glucose POC Glucose 164 H 126 H Lactic Acid Calcium AST Phosphorus Total Protein Albumin C-Reactive Protein Arterial Blood Glucose 143 H Arterial Blood Ionized Calcium Urine WBC (Auto) Crossmatch 02/09/20 02/09/20 02/09/20 05:57 08:00 12:39 WBC RBC Hgb Hct MCHC RDW Plt Count MCH Lymph % (Auto) Lymph # Lymph # (Auto) Seg Neutrophils % Seg Neuts % (Manual) Lymphocytes % (Manual) Seg Neutrophils # Seg Neutrophils # Man Nucleated RBC % Lymphocytes # (Manual) Monocytes # (Manual) PT INR Heparin Anti-Xa Level POC ABG pO2 ABG pH ABG Hemoglobin ABG Oxyhemoglobin ABG pO2 ABG HCO3 ABG O2 Saturation ABG Base Excess ABG Potassium ABG Chloride ABG Glucose Oxyhemoglobin Sodium Potassium 3.3 L Chloride Carbon Dioxide 34 H BUN 27 H Creatinine 0.4 L Glucose 127 H POC Glucose 160 H 154 H Lactic Acid Calcium 8.2 L AST Phosphorus Total Protein Albumin C-Reactive Protein Arterial Blood Glucose Arterial Blood Ionized Calcium Urine WBC (Auto) Crossmatch 02/09/20 02/09/20 02/09/20 18:17 23:43 Unknown WBC RBC 2.15 L Hgb 7.0 L Hct 20.8 L MCHC RDW 23.3 H Plt Count MCH 33 H Lymph % (Auto) Lymph # Lymph # (Auto) Seg Neutrophils % Seg Neuts % (Manual) Lymphocytes % (Manual) Seg Neutrophils # Seg Neutrophils # Man Nucleated RBC % Lymphocytes # (Manual) Monocytes # (Manual) PT INR Heparin Anti-Xa Level POC ABG pO2 ABG pH ABG Hemoglobin ABG Oxyhemoglobin ABG pO2 ABG HCO3 ABG O2 Saturation ABG Base Excess ABG Potassium ABG Chloride ABG Glucose Oxyhemoglobin Sodium Potassium Chloride Carbon Dioxide BUN Creatinine Glucose POC Glucose 152 H 177 H Lactic Acid Calcium AST Phosphorus Total Protein Albumin C-Reactive Protein Arterial Blood Glucose Arterial Blood Ionized Calcium Urine WBC (Auto) Crossmatch 02/10/20 02/10/2020 04:38 05:24 11:44 WBC RBC Hgb Hct MCHC RDW Plt Count MCH Lymph % (Auto) Lymph # Lymph # (Auto) Seg Neutrophils % Seg Neuts % (Manual) Lymphocytes % (Manual) Seg Neutrophils # Seg Neutrophils # Man Nucleated RBC % Lymphocytes # (Manual) Monocytes # (Manual) PT INR Heparin Anti-Xa Level POC ABG pO2 ABG pH 7.502 H ABG Hemoglobin 6.2 L ABG Oxyhemoglobin ABG pO2 136.0 H ABG HCO3 29.3 H ABG O2 Saturation ABG Base Excess 5.7 H ABG Potassium ABG Chloride ABG Glucose Oxyhemoglobin Sodium Potassium Chloride Carbon Dioxide BUN Creatinine Glucose POC Glucose 113 H 176 H Lactic Acid Calcium AST Phosphorus Total Protein Albumin C-Reactive Protein Arterial Blood Glucose Arterial Blood Ionized Calcium Urine WBC (Auto) Crossmatch 02/10/20 02/11/20 02/11/20 23:42 03:43 04:12 WBC RBC 2.12 L Hgb 6.9 L Hct 20.6 L MCHC RDW 23.4 H Plt Count MCH 33 H Lymph % (Auto) Lymph # Lymph # (Auto) Seg Neutrophils % 84.7 H Seg Neuts % (Manual) 83.0 H Lymphocytes % (Manual) 11.0 L Seg Neutrophils # Seg Neutrophils # Man Nucleated RBC % Lymphocytes # (Manual) 1.0 L Monocytes # (Manual) PT INR Heparin Anti-Xa Level POC ABG pO2 112.6 H ABG pH 7.480 H ABG Hemoglobin 7.2 L ABG Oxyhemoglobin ABG pO2 ABG HCO3 ABG O2 Saturation ABG Base Excess ABG Potassium ABG Chloride ABG Glucose 154 H Oxyhemoglobin Sodium Potassium Chloride Carbon Dioxide BUN Creatinine Glucose POC Glucose 149 H Lactic Acid Calcium AST Phosphorus Total Protein Albumin C-Reactive Protein Arterial Blood Glucose 154 H Arterial Blood Ionized Calcium Urine WBC (Auto) Crossmatch 02/11/20 02/11/20 02/11/20 04:12 05:50 08:22 WBC RBC Hgb Hct MCHC RDW Plt Count MCH Lymph % (Auto) Lymph # Lymph # (Auto) Seg Neutrophils % Seg Neuts % (Manual) Lymphocytes % (Manual) Seg Neutrophils # Seg Neutrophils # Man Nucleated RBC % Lymphocytes # (Manual) Monocytes # (Manual) PT INR Heparin Anti-Xa Level POC ABG pO2 ABG pH ABG Hemoglobin ABG Oxyhemoglobin ABG pO2 ABG HCO3 ABG O2 Saturation ABG Base Excess ABG Potassium ABG Chloride ABG Glucose Oxyhemoglobin Sodium 146 H Potassium Chloride Carbon Dioxide BUN 24 H Creatinine 0.4 L Glucose 168 H POC Glucose 190 H Lactic Acid Calcium 8.0 L AST Phosphorus Total Protein Albumin C-Reactive Protein Arterial Blood Glucose Arterial Blood Ionized Calcium Urine WBC (Auto) Crossmatch See Detail 02/11/20 02/11/20 02/11/20 11:41 17:33 23:40 WBC RBC Hgb Hct MCHC RDW Plt Count MCH Lymph % (Auto) Lymph # Lymph # (Auto) Seg Neutrophils % Seg Neuts % (Manual) Lymphocytes % (Manual) Seg Neutrophils # Seg Neutrophils # Man Nucleated RBC % Lymphocytes # (Manual) Monocytes # (Manual) PT INR Heparin Anti-Xa Level POC ABG pO2 ABG pH ABG Hemoglobin ABG Oxyhemoglobin ABG pO2 ABG HCO3 ABG O2 Saturation ABG Base Excess ABG Potassium ABG Chloride ABG Glucose Oxyhemoglobin Sodium Potassium Chloride Carbon Dioxide BUN Creatinine Glucose POC Glucose 260 H 132 H 54 L Lactic Acid Calcium AST Phosphorus Total Protein Albumin C-Reactive Protein Arterial Blood Glucose Arterial Blood Ionized Calcium Urine WBC (Auto) Crossmatch 02/12/20 02/12/20 02/12/20 05:16 06:45 11:48 WBC RBC Hgb 8.6 L Hct 25.2 L MCHC RDW Plt Count MCH Lymph % (Auto) Lymph # Lymph # (Auto) Seg Neutrophils % Seg Neuts % (Manual) Lymphocytes % (Manual) Seg Neutrophils # Seg Neutrophils # Man Nucleated RBC % Lymphocytes # (Manual) Monocytes # (Manual) PT INR Heparin Anti-Xa Level POC ABG pO2 ABG pH ABG Hemoglobin ABG Oxyhemoglobin ABG pO2 ABG HCO3 ABG O2 Saturation ABG Base Excess ABG Potassium ABG Chloride ABG Glucose Oxyhemoglobin Sodium Potassium Chloride Carbon Dioxide BUN Creatinine Glucose POC Glucose 127 H 163 H Lactic Acid Calcium AST Phosphorus Total Protein Albumin C-Reactive Protein Arterial Blood Glucose Arterial Blood Ionized Calcium Urine WBC (Auto) Crossmatch 02/12/20 02/12/20 02/13/20 17:25 23:53 04:30 WBC RBC Hgb Hct MCHC RDW Plt Count MCH Lymph % (Auto) Lymph # Lymph # (Auto) Seg Neutrophils % Seg Neuts % (Manual) Lymphocytes % (Manual) Seg Neutrophils # Seg Neutrophils # Man Nucleated RBC % Lymphocytes # (Manual) Monocytes # (Manual) PT INR Heparin Anti-Xa Level POC ABG pO2 ABG pH 7.463 H ABG Hemoglobin ABG Oxyhemoglobin ABG pO2 98.4 H ABG HCO3 27.7 H ABG O2 Saturation ABG Base Excess 3.7 H ABG Potassium ABG Chloride ABG Glucose Oxyhemoglobin Sodium Potassium Chloride Carbon Dioxide BUN Creatinine Glucose POC Glucose 152 H 140 H Lactic Acid Calcium AST Phosphorus Total Protein Albumin C-Reactive Protein Arterial Blood Glucose Arterial Blood Ionized Calcium Urine WBC (Auto) Crossmatch 02/13/20 02/13/20 02/13/20 04:45 04:45 05:19 WBC RBC 2.73 L Hgb 8.7 L Hct 25.6 L MCHC RDW 21.3 H Plt Count MCH Lymph % (Auto) 12.0 L Lymph # Lymph # (Auto) 1.0 L Seg Neutrophils % 82.5 H Seg Neuts % (Manual) Lymphocytes % (Manual) Seg Neutrophils # Seg Neutrophils # Man Nucleated RBC % Lymphocytes # (Manual) Monocytes # (Manual) PT INR Heparin Anti-Xa Level POC ABG pO2 ABG pH ABG Hemoglobin ABG Oxyhemoglobin ABG pO2 ABG HCO3 ABG O2 Saturation ABG Base Excess ABG Potassium ABG Chloride ABG Glucose Oxyhemoglobin Sodium Potassium 3.4 L Chloride Carbon Dioxide 31 H BUN 24 H Creatinine 0.3 L Glucose 122 H POC Glucose 127 H Lactic Acid Calcium 8.0 L AST Phosphorus Total Protein 4.2 L Albumin 2.0 L C-Reactive Protein Arterial Blood Glucose Arterial Blood Ionized Calcium Urine WBC (Auto) Crossmatch 02/13/20 02/14/20 02/14/20 23:08 04:26 04:26 WBC RBC 2.74 L Hgb 8.7 L Hct 25.8 L MCHC RDW 21.3 H Plt Count MCH Lymph % (Auto) 13.2 L Lymph # Lymph # (Auto) Seg Neutrophils % 81.4 H Seg Neuts % (Manual) Lymphocytes % (Manual) Seg Neutrophils # 8.4 H Seg Neutrophils # Man Nucleated RBC % Lymphocytes # (Manual) Monocytes # (Manual) PT INR Heparin Anti-Xa Level POC ABG pO2 ABG pH ABG Hemoglobin ABG Oxyhemoglobin ABG pO2 ABG HCO3 ABG O2 Saturation ABG Base Excess ABG Potassium ABG Chloride ABG Glucose Oxyhemoglobin Sodium Potassium 3.4 L Chloride 107.6 H Carbon Dioxide BUN 20 H Creatinine 0.3 L Glucose 170 H POC Glucose 148 H Lactic Acid Calcium 8.2 L AST Phosphorus Total Protein Albumin C-Reactive Protein Arterial Blood Glucose Arterial Blood Ionized Calcium Urine WBC (Auto) Crossmatch 02/14/20 02/14/20 02/14/20 05:05 12:08 17:37 WBC RBC Hgb Hct MCHC RDW Plt Count MCH Lymph % (Auto) Lymph # Lymph # (Auto) Seg Neutrophils % Seg Neuts % (Manual) Lymphocytes % (Manual) Seg Neutrophils # Seg Neutrophils # Man Nucleated RBC % Lymphocytes # (Manual) Monocytes # (Manual) PT INR Heparin Anti-Xa Level POC ABG pO2 ABG pH ABG Hemoglobin ABG Oxyhemoglobin ABG pO2 ABG HCO3 ABG O2 Saturation ABG Base Excess ABG Potassium ABG Chloride ABG Glucose Oxyhemoglobin Sodium Potassium Chloride Carbon Dioxide BUN Creatinine Glucose POC Glucose 182 H 156 H 144 H Lactic Acid Calcium AST Phosphorus Total Protein Albumin C-Reactive Protein Arterial Blood Glucose Arterial Blood Ionized Calcium Urine WBC (Auto) Crossmatch 02/14/20 02/15/20 02/15/20 23:36 05:44 12:11 WBC RBC Hgb Hct MCHC RDW Plt Count MCH Lymph % (Auto) Lymph # Lymph # (Auto) Seg Neutrophils % Seg Neuts % (Manual) Lymphocytes % (Manual) Seg Neutrophils # Seg Neutrophils # Man Nucleated RBC % Lymphocytes # (Manual) Monocytes # (Manual) PT INR Heparin Anti-Xa Level POC ABG pO2 ABG pH ABG Hemoglobin ABG Oxyhemoglobin ABG pO2 ABG HCO3 ABG O2 Saturation ABG Base Excess ABG Potassium ABG Chloride ABG Glucose Oxyhemoglobin Sodium Potassium Chloride Carbon Dioxide BUN Creatinine Glucose POC Glucose 183 H 203 H 140 H Lactic Acid Calcium AST Phosphorus Total Protein Albumin C-Reactive Protein Arterial Blood Glucose Arterial Blood Ionized Calcium Urine WBC (Auto) Crossmatch Allied health notes reviewed: RT
[2020-02-15] MEDS: DONEPEZIL 10 MG TAB PO SCH (22:31)
[2020-02-15] MEDS: MIRTAZAPINE 15 MG TAB PO SCH (22:31)
[2020-02-15] MEDS: traZODone 50 MG TAB PO SCH (22:36)
[2020-02-16] MEDS: INSULIN REGULAR, HUMAN 100 UNIT/ML 3ML VIAL SUB-Q SCH ×4 (00:39→17:16)
[2020-02-16] MEDS: PIPERACIL/TAZOBACTA 4.5/NS 100 4.5 GM/100 ML VIAL IV SCH ×3 (05:50→21:00)
[2020-02-16 06:08] LABS: Hemoglobin 8.8 gm/dl (10.1-14.3)
[2020-02-16 06:30] LABS: Blood Urea Nitrogen 18 mg/dL (7-17); Calcium 7.9 mg/dL (8.4-10.2); Hemolysis Index 4
[2020-02-16 06:31] LABS: BUN/Creatinine Ratio 60
[2020-02-16] MEDS: HEPARIN 5,000 UNIT/1 ML VIAL SUB-Q SCH ×2 (09:25→21:00)
[2020-02-16] MEDS: FERROUS SULFATE 308 MG (62mg Elemental Iron) / 7 ML ELIXIR FEEDTUBE SCH (09:25)
[2020-02-16] MEDS: MULTIVITAMINS 5 ML ORAL LIQUID PO SCH (09:25)
[2020-02-16] MEDS: FAMOTIDINE 20 MG TAB PO SCH ×2 (09:29→21:01)
--- NOTE | 2020-02-16 10:32 | Progress Note ---
Assessment and Plan Assessment and plan: --Right upper extremity massive edema: patient has a line DC the IV access from right upper extremity, elevate the little RtUE venous Doppler no DVT, superficial venous thrombus Supportive care, elevate the limb --s/p PEA arrest night of 01/28/2020 and 02/05/2020 s/p CPR per ACLS protocol --Anoxic/hypoxic brain injury[status post PEA cardiac arrest]; supportive care --Acute hypoxic respiratory failure; intubated. vent dependent Status post tracheostomy, 02/13/2020 per surgery, trach care, ventilatory support status post extubation 02/02/2020 but had to be reintubated on 02/04 --Shock/ septic shock; monitor off Levophed --Unstageable sacral decubitus ulcer, infected/POA s/p wound debridement on 01/15. Wound vac in place ID recommend zosyn 4.5 g IV q8h total 6 weeks stop date 02/27/2020 --Sepsis /Proteus bacteremia: Due to sacral decubitus Long-term Zosyn per ID stop date 02/27/2020[total 6 weeks] --Bilateral upper extremity edema and swelling R>L Lateral venous Doppler of the upper extremity to rule out DVT Support and elevate the limbs --Hypokalemia; 30 mEq KCl via PEG Follow electrolytes -- Hypernatremia; resolved --Anemia ; unknown etiology , no external evidence of bleeding Received 1 unit PRBC transfusion , hemoglobin improved from 6.9-8.6-8.7 -- Uncontrolled diabetes mellitus; Blood sugars well controlled, A1c 5.3 Accu-Chek sliding scale coverage long-acting insulin as needed DM management with SSI, TF -- Hydropneumothorax, not POA Patient developed hydropneumothorax on 01/15. Surgery evaluated s/p chest tube placed on 01/15. Improved, s/p chest tube removed 01/22, extubated 02/02/2020 Reintubated 02/05/2020 , tracheostomy 02/13/2020 -- large Left pleural effusion 01/25 01/27; s/p bronchoscopy and Therapeutic suctioning of the lungs done by ambulatory care coordinator -- UTI (urinary tract infection)Completed antibiotics --h/o Bilateral pulmonary embolism 7 months ago Repeat CTA chest and LE doppler showed no acute PE or DVT, eliquis stopped -- Dementia: Continue donepezil --Severe protein-calorie malnutrition PEG placed 01/13. PEG feeds per protocol --DVT prophylaxis; SCDs --Position; possible LTAC placement Closely monitor the patient and adjust management as needed Plan of care reviewed with the patient and her nurse The high probability of a clinically significant, sudden or life threatening deterioration of the [Respiratory, PIE MAKER MACHINE, CVs] system(s) required my full and direct attention, intervention and personal management. The aggregate critical care time was [32] minutes. This time is in addition to time spent performing reported procedures but includes the following: [x] Data Review and interpretation [x] Patient assessment and monitoring of vital signs [x] Documentation [x] Medication orders and management . Patient currently with PSV/CPAP FiO2 50%, PEEP of 6 and pressure support of 10. Continue PSV trials as tolerated and wean per pulmonary. Recall ID consultation. 02/08/2020. Patient with Proteus bacteremia likely from sacral decubitus. Continue Zosyn 4.5 g IV every 8 hours until stop date of 02/26. Patient still on mechanical ventilation AC mode rate 12, tidal volume 350, FiO2 30% and PEEP of 6. Poor prognosis. Consider hospice. Continue scopolamine for secretion control. Continue pressors to maintain MAP > 65; currently off. 02/09/2020. Continue Zosyn 4.5 g IV every 8 hours for Proteus bacteremia with end date of 02/27/2020. Continue wound care/wound VAC per surgery. Patient still on mechanical ventilation AC mode rate 12, tidal volume 350, FiO2 30% and PEEP of 6. Poor prognosis. Consider hospice. Continue scopolamine for secretion control. Currently off pressors. 02/09; evaluated by surgery, planning tracheostomy pending COVID test 02/10; possible tracheostomy today pending COVID test, surgery following 02/11; patient n.p.o. from midnight, possible tracheostomy tomorrow Received 1 unit of PRBC, Hb improved to 8.6 02/12; scheduled for tracheostomy today 02/13; trach care, bilateral upper extremity L edema and swelling, check venous Doppler 02/14; right upper extremity swelling edema, DC the line, elevate the limb 02/15;RUE venous Doppler no DVT, superficial thrombophlebitis, elevate the limb and supportive care History Interval history: I have seen and examined the patient at the bedside this morning in ICU Patient's chart and medications reviewed Status post trach and PEG, on ventilatory support Noncommunicative, vital signs noted Hospitalist Physical - Constitutional Vitals: Temp Pulse Resp BP Pulse Ox 98.6 F 108 H 27 H 137/63 100 02/16/20 03:20 02/16/20 08:30 02/16/20 08:30 02/16/20 08:30 02/16/20 08:30 General appearance: Present: no acute distress, well-nourished, other (Tracheostomy on vent) - EENT Eyes: Present: PERRL, EOM intact ENT: other (Tracheostomy) - Neck Neck: Present: supple, normal ROM - Respiratory Respiratory effort: normal Respiratory: bilateral: diminished, negative: rales, rhonchi, wheezing - Cardiovascular Rhythm: regular Heart Sounds: Present: S1 & S2 - Extremities Extremities: no ischemia, No edema - Abdominal General gastrointestinal: soft, non-tender, non-distended, normal bowel sounds, other (PEG in place) Results - Labs CBC & Chem 7: 02/16/20 05:09 02/16/20 05:09 Labs: Laboratory Last Values WBC 10.4 K/mm3 (4.5-11.0) 02/14/20 04:26 RBC 2.74 M/mm3 (3.65-5.03) L 02/14/20 04:26 Hgb 8.8 gm/dl (10.1-14.3) L 02/16/20 05:09 Hct 26.0 % (30.3-42.9) L 02/16/20 05:09 MCV 94 fl (79-97) 02/14/20 04:26 MCH 32 pg (28-32) 02/14/20 04:26 MCHC 34 % (30-34) 02/14/20 04:26 RDW 21.3 % (13.2-15.2) H 02/14/20 04:26 Plt Count 389 K/mm3 (140-440) 02/14/20 04:26 Lymph % (Auto) 13.2 % (13.4-35.0) L 02/14/20 04:26 Banks % (Auto) 3.6 % (0.0-7.3) 02/14/20 04:26 Eos % (Auto) 1.0 % (0.0-4.3) 02/14/20 04:26 Baso % (Auto) 0.8 % (0.0-1.8) 02/14/20 04:26 Lymph # (Auto) 1.4 K/mm3 (1.2-5.4) 02/14/20 04:26 Banks # (Auto) 0.4 K/mm3 (0.0-0.8) 02/14/20 04:26 Eos # (Auto) 0.1 K/mm3 (0.0-0.4) 02/14/20 04:26 Baso # (Auto) 0.1 K/mm3 (0.0-0.1) 02/14/20 04:26 Add Manual Diff Complete 02/11/20 04:12 Total Counted 100 02/11/20 04:12 Seg Neutrophils % 81.4 % (40.0-70.0) H 02/14/20 04:26 Seg Neuts % (Manual) 83.0 % (40.0-70.0) H 02/11/20 04:12 Band Neutrophils % 0 % 02/11/20 04:12 Lymphocytes % (Manual) 11.0 % (13.4-35.0) L 02/11/20 04:12 Reactive Lymphs % (Man) 0 % 02/11/20 04:12 Monocytes % (Manual) 5.0 % (0.0-7.3) 02/11/20 04:12 Eosinophils % (Manual) 1.0 % (0.0-4.3) 02/11/20 04:12 Basophils % (Manual) 0 % (0.0-1.8) 02/11/20 04:12 Metamyelocytes % 0 % 02/11/20 04:12 Myelocytes % 0 % 02/11/20 04:12 Promyelocytes % 0 % 02/11/20 04:12 Blast Cells % 0 % 02/11/20 04:12 Nucleated RBC % Not Reportable 02/11/20 04:12 Seg Neutrophils # 8.4 K/mm3 (1.8-7.7) H 02/14/20 04:26 Seg Neutrophils # Man 7.6 K/mm3 (1.8-7.7) 02/11/20 04:12 Band Neutrophils # 0.0 K/mm3 02/11/20 04:12 Lymphocytes # (Manual) 1.0 K/mm3 (1.2-5.4) L 02/11/20 04:12 Abs React Lymphs (Man) 0.0 K/mm3 02/11/20 04:12 Monocytes # (Manual) 0.5 K/mm3 (0.0-0.8) 02/11/20 04:12 Eosinophils # (Manual) 0.1 K/mm3 (0.0-0.4) 02/11/20 04:12 Basophils # (Manual) 0.0 K/mm3 (0.0-0.1) 02/11/20 04:12 Metamyelocytes # 0.0 K/mm3 02/11/20 04:12 Myelocytes # 0.0 K/mm3 02/11/20 04:12 Promyelocytes # 0.0 K/mm3 02/11/20 04:12 Blast Cells # 0.0 K/mm3 02/11/20 04:12 WBC Morphology Not Reportable 02/11/20 04:12 Hypersegmented Neuts Not Reportable 02/11/20 04:12 Hyposegmented Neuts Not Reportable 02/11/20 04:12 Hypogranular Neuts Not Reportable 02/11/20 04:12 Smudge Cells Not Reportable 02/11/20 04:12 Toxic Granulation Not Reportable 02/11/20 04:12 Toxic Vacuolation Not Reportable 02/11/20 04:12 Dohle Bodies Not Reportable 02/11/20 04:12 Pelger-Huet Anomaly Not Reportable 02/11/20 04:12 Lata Rods Not Reportable 02/11/20 04:12 Platelet Estimate Consistent w auto 02/11/20 04:12 Clumped Platelets Not Reportable 02/11/20 04:12 Plt Clumps, EDTA Not Reportable 02/11/20 04:12 Large Platelets Not Reportable 02/11/20 04:12 Giant Platelets Not Reportable 02/11/20 04:12 Platelet Satelliting Not Reportable 02/11/20 04:12 Plt Morphology Comment Not Reportable 02/11/20 04:12 RBC Morphology Not Reportable 02/11/20 04:12 Dimorphic RBCs Not Reportable 02/11/20 04:12 Polychromasia Not Reportable 02/11/20 04:12 Hypochromasia Not Reportable 02/11/20 04:12 Poikilocytosis Not Reportable 02/11/20 04:12 Anisocytosis 2+ 02/11/20 04:12 Microcytosis Not Reportable 02/11/20 04:12 Macrocytosis Few 02/11/20 04:12 Spherocytes Not Reportable 02/11/20 04:12 Pappenheimer Bodies Not Reportable 02/11/20 04:12 Sickle Cells Not Reportable 02/11/20 04:12 Target Cells Few 02/11/20 04:12 Tear Drop Cells Not Reportable 02/11/20 04:12 Ovalocytes Not Reportable 02/11/20 04:12 Helmet Cells Not Reportable 02/11/20 04:12 Lombardi-Louise Bodies Not Reportable 02/11/20 04:12 [place] Rings Not Reportable 02/11/20 04:12 Leonidas Cells Not Reportable 02/11/20 04:12 Bite Cells Not Reportable 02/11/20 04:12 Crenated Cell Not Reportable 02/11/20 04:12 Elliptocytes Not Reportable 02/11/20 04:12 Acanthocytes (Spur) Not Reportable 02/11/20 04:12 Rouleaux Not Reportable 02/11/20 04:12 Hemoglobin C Crystals Not Reportable 02/11/20 04:12 Schistocytes Not Reportable 02/11/20 04:12 Malaria parasites Not Reportable 02/11/20 04:12 Gideon Bodies Not Reportable 02/11/20 04:12 Hem Pathologist Commnt No 02/11/20 04:12 APTT 33.9 Sec. (24.2-36.6) 01/26/20 16:30 PT 14.4 Sec. (12.2-14.9) 02/02/20 05:25 INR 1.11 (0.87-1.13) 02/02/20 05:25 Heparin Anti-Xa Level 0.74 U.I./ml (0.3-0.7) H 01/28/20 08:50 ABG pH 7.463 pH Units (7.350-7.450) H 02/13/20 04:30 POC ABG pCO2 38.5 mmHg (32.0-48.0) 02/11/20 03:43 ABG pCO2 39.6 mm Hg 02/13/20 04:30 POC ABG pO2 112.6 mmHg (83-108) H 02/11/20 03:43 ABG pO2 98.4 mm Hg (80.0-90.0) H 02/13/20 04:30 POC ABG HCO3 28 02/11/20 03:43 ABG HCO3 27.7 mmol/L (20.0-26.0) H 02/13/20 04:30 ABG O2 Saturation 97.7 % (95.0-99.0) 02/13/20 04:30 ABG O2 Content 19.3 (0.0-44) 02/13/20 04:30 POC ABG Base Excess 4.2 02/11/20 03:43 ABG Base Excess 3.7 mmol/L (-2.0-3.0) H 02/13/20 04:30 ABG Hemoglobin 14.4 gm/dl (12.0-16.0) 02/13/20 04:30 ABG Oxyhemoglobin 96.7 (94-98) 02/09/20 03:04 ABG Carboxyhemoglobin 1.8 % (0.0-5.0) 02/13/20 04:30 ABG Methemoglobin 0.6 % (0.0-1.5) 02/13/20 04:30 ABG Sodium 138.5 mmol/L (136.0-145.0) 02/11/20 03:43 ABG Potassium 3.4 mmol/L (3.40-4.50) 02/11/20 03:43 ABG Chloride 107.0 mmol/L (98-107) 02/11/20 03:43 ABG Glucose 154 mg/dL (65-95) H 02/11/20 03:43 Oxyhemoglobin 95.3 % (95.0-99.0) 02/13/20 04:30 Carboxyhemoglobin TNR 02/08/20 03:55 FiO2 25 % 02/13/20 04:30 Sodium 142 mmol/L (137-145) 02/16/20 05:09 Potassium 3.6 mmol/L (3.6-5.0) 02/16/20 05:09 Chloride 105.6 mmol/L (98-107) 02/16/20 05:09 Carbon Dioxide 31 mmol/L (22-30) H 02/16/20 05:09 Anion Gap 9 mmol/L 02/16/20 05:09 BUN 18 mg/dL (7-17) H 02/16/20 05:09 Creatinine 0.3 mg/dL (0.6-1.2) L 02/16/20 05:09 Estimated GFR > 60 ml/min 02/16/20 05:09 BUN/Creatinine Ratio 60 % 02/16/20 05:09 Glucose 152 mg/dL (65-100) H 02/16/20 05:09 POC Glucose 160 (70-105) H 02/16/20 05:21 Hemoglobin A1c 5.3 % (4-6) 01/11/20 00:45 Lactic Acid 1.30 mmol/L (0.7-2.0) 01/26/20 23:27 Calcium 7.9 mg/dL (8.4-10.2) L 02/16/20 05:09 Phosphorus 2.30 mg/dL (2.5-4.5) L 02/03/20 05:14 Magnesium 2.00 mg/dL (1.7-2.3) 02/16/20 05:09 Total Bilirubin 0.20 mg/dL (0.1-1.2) 02/13/20 04:45 AST 29 units/L (5-40) 02/13/20 04:45 ALT 38 units/L (7-56) 02/13/20 04:45 Alkaline Phosphatase 109 units/L (35-129) 02/13/20 04:45 C-Reactive Protein 14.80 mg/dL (0.00-1.30) H 01/29/20 Unknown Total Protein 4.2 g/dL (6.3-8.2) L 02/13/20 04:45 Albumin 2.0 g/dL (3.9-5) L 02/13/20 04:45 Albumin/Globulin Ratio 0.9 % 02/13/20 04:45 TSH 2.440 mlU/mL (0.270-4.200) 01/10/20 10:10 Procalcitonin 1.86 ng/mL (<0.15) 01/29/20 Unknown Arterial Blood Glucose 154 mg/dL (65-95) H 02/11/20 03:43 Arterial Blood Ionized Calcium 4.6 mg/dL (4.6-5.3) 02/11/20 03:43 Urine Color Cordelia (Yellow) 01/08/20 Unknown Urine Turbidity Cloudy (Clear) 01/08/20 Unknown Urine pH 5.0 (5.0-7.0) 01/08/20 Unknown Ur Specific [place] 1.018 (1.003-1.030) 01/08/20 Unknown Urine Protein 30 mg/dl mg/dL (Negative) 01/08/20 Unknown Urine Glucose (UA) Neg mg/dL (Negative) 01/08/20 Unknown Urine Ketones Neg mg/dL (Negative) 01/08/20 Unknown Urine Blood Mod (Negative) 01/08/20 Unknown Urine Nitrite Neg (Negative) 01/08/20 Unknown Urine Bilirubin Neg (Negative) 01/08/20 Unknown Urine Urobilinogen < 2.0 mg/dL (<2.0) 01/08/20 Unknown Ur Leukocyte Esterase Sm (Negative) 01/08/20 Unknown Urine WBC (Auto) 11.0 /HPF (0.0-6.0) H 01/08/20 Unknown Urine RBC (Auto) 7.0 /HPF (0.0-6.0) 01/08/20 Unknown U Epithel Cells (Auto) < 1.0 /HPF (0-13.0) 01/08/20 Unknown Urine Bacteria (Auto) 1+ /HPF (Negative) 01/08/20 Unknown Urine Mucus 2+ /HPF 01/08/20 Unknown Urine Yeast (Budding) 1+ /HPF 01/08/20 Unknown Vancomycin Trough 7.9 ug/mL (5.0-20.0) 01/17/20 16:04 Coronavirus (PCR) Negative (Negative) 02/10/20 10:06 Blood Type A POSITIVE 02/11/20 08:22 Antibody Screen Negative 02/11/20 08:22 Crossmatch See Detail 02/11/20 08:22 Mejía/IV: Voiding Method Indwelling Catheter IV Catheter Type [Left Wrist] INT / Saline Lock IV Catheter Type [Left Upper PICC Line arm] IV Catheter Type [Right Upper Mid-line arm] IV Catheter Type [Right Peripheral IV Forearm] Active Medications - Current Medications Current Medications: Generic Name Dose Route Start Last Admin Trade Name Freq PRN Reason Stop Dose Admin Acetaminophen 650 mg 01/08/20 23:14 01/18/20 06:03 Tylenol PO 650 mg Q4H PRN Administration Pain MILD(1-3)/Fever >100.5/GARCIA Lipase/Protease/Amylase 1 each 01/17/20 08:37 Pancrejason Sommers 10,500 Unit FEEDTUBE PRN PRN For Clogged Feeding Tube Atorvastatin Calcium 10 mg 01/09/20 22:00 02/15/20 22:32 Atorvastatin PO 10 mg QHS BRO Administration Dextrose 0 ml 01/08/20 23:14 02/10/20 17:18 D50w (25gm) Syringe IV 10 ml Q30MIN PRN Administration Hypoglycemia Protocol Donepezil HCl 10 mg 01/09/20 22:00 02/15/20 22:31 Aricept PO 10 mg QHS BRO Administration Famotidine 20 mg 01/27/20 10:00 02/16/20 09:29 Pepcid PO 20 mg BID BRO Administration Ferrous Sulfate 308 mg 02/09/20 12:00 02/16/20 09:25 Ferrous Sulfate FEEDTUBE 308 mg DAILY BRO Administration Fluticasone Propionate 100 mcg 01/25/20 20:00 01/26/20 06:09 Flonase NS 100 mcg QDAY PRN Administration Nasal Congestion Heparin Sodium (Porcine) 5,000 unit 01/28/20 10:00 02/16/20 09:25 Heparin SUB-Q 5,000 unit Q12HR BRO Administration Hydrophilic Ointment 1 applic 01/28/20 10:57 Vaseline Lip Therapy TP Q2HR PRN Dry Lips Piperacillin Sod/Tazobactam Sod 4.5 gm in 100 mls @ 200 mls/hr 01/19/20 14:00 02/16/20 06:20 Zosyn/Ns 4.5gm/100ml IV 02/27/20 22:29 Infused Q8HR BRO Infusion Protocol Fentanyl Citrate 2,000 mcg in 100 mls @ 3.6 mls/hr 02/13/20 13:00 02/14/20 18:25 Fentanyl Drip Premix IV 0 mcg/kg/hr TITR BRO 0 mls/hr Titration Protocol 1 MCG/KG/HR Insulin Human Regular 0 unit 01/27/20 12:00 02/16/20 06:49 Humulin R SUB-Q 3 unit Q6HR BRO Administration Protocol Loperamide HCl 2 mg 02/14/20 12:00 02/14/20 16:48 Loperamide PO 2 mg Q2H PRN Administration Diarrhea Magnesium Hydroxide 30 ml 01/08/20 23:14 Milk Of Magnesia PO Q4H PRN Constipation Mirtazapine 15 mg 01/09/20 22:00 02/15/20 22:31 Remeron PO 15 mg QHS BRO Administration Multi-Ingred Cream/Lotion/Oil/Oint 1 applic 01/28/20 10:57 Artificial Tears Ophth Oint OU Q4HR PRN Dry Eye(s) Multivitamins 5 ml 02/09/20 12:00 02/16/20 09:25 Centrum Liq PO 5 ml QDAY BRO Administration Ondansetron HCl 4 mg 01/08/20 23:14 Zofran IV Q8H PRN Nausea And Vomiting Scopolamine 1 each 02/05/20 10:00 02/14/20 09:31 Transderm-Scop TD 1 each Q3D BRO Administration Simple Syrup 15 ml 01/17/20 08:37 Simple Syrup FEEDTUBE PRN PRN Hypoglycemia Simple Syrup 30 ml 01/17/20 08:37 02/11/20 23:43 Simple Syrup FEEDTUBE 30 ml PRN PRN Administration Hypoglycemia Sodium Bicarbonate 325 mg 01/17/20 08:37 Sodium Bicarbonate FEEDTUBE PRN PRN For Clogged Feeding Tube Sodium Chloride 10 ml 01/09/20 10:00 02/16/20 09:29 Sodium Chloride Flush Syringe 10 Ml IV 10 ml BID BRO Administration Sodium Chloride 10 ml 01/08/20 23:14 Sodium Chloride Flush Syringe 10 Ml IV PRN PRN LINE FLUSH Trazodone HCl 25 mg 01/09/20 22:00 02/15/20 22:36 Desyrel PO 25 mg QHS BRO Administration Nutrition/Malnutrition Assess - Dietary Evaluation Nutrition/Malnutrition Findings: Nutrition Notes Start: 01/09/20 12:13 Freq: Status: Active Protocol: Document 02/12/20 11:15 FLORINDA (Rec: 02/12/20 11:28 FLORINDA [id number]) Co-Sign 02/12/20 11:15 LP Nutrition Notes Initial or Follow up Reassessment Current Diagnosis Decubitus(Pressure Ulcer), Diabetes,Sepsis Other Pertinent Diagnosis UTI, dementia, PE, Sacral wound Current Diet Vital AF 1.2 at 50ml/hr Labs/Tests 02/10 Na 146 BUN 24 Cr 0.4 BG 168 Pertinent Medications Reviewed Height 5 ft 2 in Weight 72 kg [place] Body Weight (kg) 50.00 BMI 29.0 Weight change and time frame Wt change noted. Pt 4+ pitting edema continues. Weight Status Overweight Subjective/Other Information F/U for stable TF and Na levels. Pt TF running at goal rate. Na levels remain slightly elevated. Percent of energy/protein needs met: 91%/100% Burn Absent Trauma Absent GI Symptoms Diarrhea Current % PO Negligible Minimum of two criteria Yes Fluid Accumulation Moderate to Severe (severe) Reduced Gambling Supervisor Strength Measurably Reduced (severe) #3 Nutrition Diagnosis Malnutrition Diagnosis Progress(for reassessment Continues documentation) #2 Nutrition Diagnosis Inadequate oral intake Diagnosis Progress(for reassessment Continues documentation) #1 Nutrition Diagnosis Increased nutrient needs ( specify in comment below) Diagnosis Progress(for reassessment Continues documentation) Is patient on ventilator? Yes Is Patient Ambulatory and/or Out of Bed No REE-([facility]-confined to bed) 1437.756 Kcal/Kg value to use for calculation 22 Approximate Energy Requirements Using 1584 kcal/Kg Calculation Used for Recommendations Kcal/kg Additional Notes Pro: 81-98 g (1.25-1.5 g/kg) Fluid: 1ml/kcal Nutrition Intervention Change Diet Order: Continue Nutrition Support: Vital AF 1.2 at 50ml/hr Flush 250ml q4h per MD Kcal 1,440 Protein (gm) 90 Fluid (mL) 973 Goal #1 Meet at least 80% of kcal and protein needs via TF Goal #2 TF tolerance Goal #3 Wound Healing Anticipated Discharge Needs: Continue TF Follow-Up By: 02/16/20 Additional Comments F/U for stable TF and Na levels
[2020-02-16] MEDS ORDERED: POTASSIUM CHLORIDE 20 MEQ PACKET FEEDTUBE ONE (11:00)
--- NOTE | 2020-02-16 11:01 | Vascular Lab Report ---
Bilateral upper extremity venous Ultrasound HISTORY: BL upper arm edema. TECHNIQUE: Grayscale and color imaging performed. COMPARISON: None FINDINGS: Right: There is thrombus in the cephalic vein just above the antecubital fossa region which is nearly occlusive. Otherwise no thrombus identified in the right internal jugular, subclavian, axillary, bra chial, basilic, ulnar, or radial veins. Left: No thrombus identified from the level of the internal jugular vein through the subclavian, axil viviana, brachial, basilic, radial, and ulnar veins. IMPRESSION: 1. Superficial venous thrombus in the right cephalic vein near the antecubital fossa. 2. No DVT identified in either upper extremity. Signer Name: Jcarlos Owusu MD Signed: 02/16/2020 10:56 AM Workstation Name: [id number]
--- NOTE | 2020-02-16 13:10 | Progress Note ---
Assessment and Plan Severe sepsis with shock. Left lung atelectasis. Left pleural effusion. Acute hypoxemic respiratory failure on MVS s/p Tracheostomy s/p Cardiopulamanry arrest with ROSC x2 Severe sepsis with shock Acute possibly on chronic encephalopathy. History of diabetes. Urinary tract infection. History of pulmonary embolism, diagnosed several months ago. Sacral decubitus ulcer. Dementia. Anemia that is normocytic. -Trach care, airway clearance , secretion management -SBT daily, if she tolerates it, will plan to start ATP trials in the next 48 hours -Replete potassium- keep potassium at 4, Mag at 2 and Phos at 2.5 to optimize respiratory muscle function -Follow up venous dopplers once the study is completed -Supportive transfusions as indicated to keep HgB >7g/dL to help with wound healing -Optimize nutritional support -Monitor hemodynamics closely -VAP bundle addressed, Daily SBT as tolerated -Wean FIO2 for O2 sats >92%, currently on FIO2 of 30% -Aspiration precautions, HOB >40 -Enteric nutritional support- has a PEG - continue bronchodilators with pulmonary hygiene per RT - continue accuchecks with glycemic control per SSI (While critically ill target blood glucose of 140-180 mg/dL; avoid hypoglycemia) - avoid nephrotoxins, renally dose all medications - continue to avoid benzodiazepines, reduce the possibility of delirium - complete antibiotics -on Zosyn for sacral osteomyelitis - prn analgesia per CPOT score - Maintenance of sleep-wake cycle, avoid delirium -VTE prophylaxis with Heparin - Stress ulcer prophylaxis with Famotidine - PT/OT/ROM exercises - continue mobility protocol, frequent turning and off loading to prevent further pressure ulcers -Wound care with wound vac - Monitor hemodynamics closely -Free water flushes for hypernatremia - continue other care per attending / other consultants Discussed with RT, RN, Clinical pharmacist and case management during ICU-IDT rounds CONDITION: CRITICAL PROGNOSIS: GUARDED CODE STATUS: FULL CODE The high probability of a clinically significant, sudden or life-threatening deterioration of the [respiratory, cardiovascular & neurologic] system(s) r equired my full and direct attention, intervention and personal management. The aggregate critical care time was [32] minutes without overlap. Time includes spent on; [x] Data Review and interpretation [x] Patient assessment and monitoring of vital signs [x] Documentation [x] Medication orders and management Subjective Date of service: 02/16/20 Principal diagnosis: Septic Shock; S/P Cardiac Arrest; Ac. hypoxemic resp failure; UTI Interval history: Patient is seen today for: PEA arrest with ROSC, trach to MVS; Severe sepsis with shock ; Acute hypoxemic respiratory failure; Acute possibly on chronic encephalopathy; DM II ; UTI ; VTE Seen and examined at bedside; 24hour events reviewed; nursing and respiratory care staff consulted; no adverse overnight events reported to me; resting peacefully in bed; No fevers, no vomiting. s/p trach , awake and alert but not obeying commands. Not on any pressors. No overnight events. Midline discontinued for upper extremity swelling, Venous doppler pending Objective Vital Signs - 12hr 02/16/20 02/16/20 02/16/20 01:30 02:00 02:30 Temperature Pulse Rate 105 H 98 H 99 H Pulse Rate [ From Monitor] Respiratory 28 H 24 25 H Rate Blood Pressure 129/60 125/56 131/56 O2 Sat by Pulse 100 100 100 Oximetry O2 Sat by Pulse Oximetry [ Assessment] 02/16/20 02/16/20 02/16/20 03:00 03:20 03:30 Temperature 98.6 F Pulse Rate 99 H 96 H Pulse Rate [ From Monitor] Respiratory 25 H 21 Rate Blood Pressure 117/60 130/56 O2 Sat by Pulse 100 100 Oximetry O2 Sat by Pulse Oximetry [ Assessment] 02/16/20 02/16/20 02/16/20 04:00 04:01 04:30 Temperature Pulse Rate 94 H 94 H 107 H Pulse Rate [ 98 H From Monitor] Respiratory 25 H 24 26 H Rate Blood Pressure 132/55 135/60 O2 Sat by Pulse 100 100 100 Oximetry O2 Sat by Pulse Oximetry [ Assessment] 02/16/20 02/16/20 02/16/20 04:39 05:00 05:30 Temperature Pulse Rate 109 H 108 H 113 H Pulse Rate [ From Monitor] Respiratory 26 H 21 Rate Blood Pressure 135/60 137/61 135/61 O2 Sat by Pulse 100 100 100 Oximetry O2 Sat by Pulse 100 Oximetry [ Assessment] 02/16/20 02/16/20 02/16/20 06:00 06:30 07:00 Temperature Pulse Rate 110 H 106 H 103 H Pulse Rate [ From Monitor] Respiratory 17 23 18 Rate Blood Pressure 131/58 129/63 133/63 O2 Sat by Pulse 100 100 100 Oximetry O2 Sat by Pulse Oximetry [ Assessment] 02/16/20 02/16/20 02/16/20 07:30 07:58 08:00 Temperature 98.2 F Pulse Rate 110 H 109 H 111 H Pulse Rate [ From Monitor] Respiratory 25 H 25 H 20 Rate Blood Pressure 135/59 139/62 139/62 O2 Sat by Pulse 100 100 100 Oximetry O2 Sat by Pulse Oximetry [ Assessment] 02/16/20 02/16/20 02/16/20 08:30 09:00 09:30 Temperature Pulse Rate 108 H 112 H 110 H Pulse Rate [ From Monitor] Respiratory 27 H 29 H 21 Rate Blood Pressure 137/63 148/67 141/69 O2 Sat by Pulse 100 100 100 Oximetry O2 Sat by Pulse Oximetry [ Assessment] 02/16/20 02/16/20 02/16/20 10:00 10:30 11:00 Temperature Pulse Rate 109 H 107 H 107 H Pulse Rate [ From Monitor] Respiratory 25 H 31 H 32 H Rate Blood Pressure 143/67 149/70 147/69 O2 Sat by Pulse 100 100 100 Oximetry O2 Sat by Pulse Oximetry [ Assessment] 02/16/20 02/16/20 11:30 12:10 Temperature Pulse Rate 108 H 110 H Pulse Rate [ From Monitor] Respiratory 28 H Rate Blood Pressure 149/73 147/73 O2 Sat by Pulse 100 100 Oximetry O2 Sat by Pulse Oximetry [ Assessment] Constitutional: no acute distress, alert, other (elderly chronically ill looking female [place] [facility] [place] Eyes: non-icteric ENT: oropharynx moist, other (trach) Neck: supple, no lymphadenopathy Effort: normal Ascultation: Bilateral: clear, diminished breath sounds, rales (bases predominant), rhonchi (scant) Percussion: Bilateral: not dull Cardiovascular: regular rate and rhythm, other (S1,S2) Gastrointestinal: normoactive bowel sounds, soft, non-tender, other (PEG in place) Integumentary: decubitus ulcer Extremities: no cyanosis, pulses normal, no ischemia or petechiae, edema, other (bilateral upper extremity edema) Neurologic: pupils equal and round, other (awake and alert, not obeying commands) Psychiatric: other (Unable to assess secondary to mental status) CBC and BMP: 02/16/20 05:09 02/16/20 05:09 ABG, PT/INR, D-dimer: ABG ABG pH 7.463 pH Units (7.350-7.450) H 02/13/20 04:30 POC ABG pCO2 38.5 mmHg (32.0-48.0) 02/11/20 03:43 ABG pCO2 39.6 mm Hg 02/13/20 04:30 POC ABG pO2 112.6 mmHg (83-108) H 02/11/20 03:43 ABG pO2 98.4 mm Hg (80.0-90.0) H 02/13/20 04:30 POC ABG HCO3 28 02/11/20 03:43 ABG O2 Saturation 97.7 % (95.0-99.0) 02/13/20 04:30 PT/INR, D-dimer PT 14.4 Sec. (12.2-14.9) 02/02/20 05:25 INR 1.11 (0.87-1.13) 02/02/20 05:25 Abnormal lab findings: Abnormal Labs 01/08/20 01/08/20 01/08/20 16:29 16:29 16:29 WBC 13.5 H RBC Hgb Hct MCHC RDW 15.5 H Plt Count MCH Lymph % (Auto) Lymph # Lymph # (Auto) Seg Neutrophils % Seg Neuts % (Manual) 85.0 H Lymphocytes % (Manual) 11.0 L Seg Neutrophils # Seg Neutrophils # Man 11.5 H Nucleated RBC % Lymphocytes # (Manual) Monocytes # (Manual) PT INR Heparin Anti-Xa Level POC ABG pO2 ABG pH ABG Hemoglobin ABG Oxyhemoglobin ABG pO2 ABG HCO3 ABG O2 Saturation ABG Base Excess ABG Potassium ABG Chloride ABG Glucose Oxyhemoglobin Sodium 161 H* Potassium Chloride 125.5 H Carbon Dioxide 20 L BUN 30 H Creatinine Glucose 115 H POC Glucose Lactic Acid 2.20 H* Calcium 7.9 L AST 48 H Phosphorus Total Protein Albumin 2.5 L C-Reactive Protein Arterial Blood Glucose Arterial Blood Ionized Calcium Urine WBC (Auto) Crossmatch 01/08/20 01/08/20 01/08/20 19:02 23:30 Unknown WBC RBC Hgb Hct MCHC RDW Plt Count MCH Lymph % (Auto) Lymph # Lymph # (Auto) Seg Neutrophils % Seg Neuts % (Manual) Lymphocytes % (Manual) Seg Neutrophils # Seg Neutrophils # Man Nucleated RBC % Lymphocytes # (Manual) Monocytes # (Manual) PT INR Heparin Anti-Xa Level POC ABG pO2 ABG pH ABG Hemoglobin ABG Oxyhemoglobin ABG pO2 ABG HCO3 ABG O2 Saturation ABG Base Excess ABG Potassium ABG Chloride ABG Glucose Oxyhemoglobin Sodium Potassium Chloride Carbon Dioxide BUN Creatinine Glucose POC Glucose Lactic Acid 2.10 H* 2.50 H* Calcium AST Phosphorus Total Protein Albumin C-Reactive Protein Arterial Blood Glucose Arterial Blood Ionized Calcium Urine WBC (Auto) 11.0 H Crossmatch 01/09/20 01/09/20 01/09/20 00:19 00:54 05:52 WBC 13.5 H RBC 3.02 L Hgb 9.0 L D Hct 27.4 L D MCHC RDW Plt Count MCH Lymph % (Auto) 9.1 L Lymph # Lymph # (Auto) Seg Neutrophils % 87.6 H Seg Neuts % (Manual) Lymphocytes % (Manual) Seg Neutrophils # 11.8 H Seg Neutrophils # Man Nucleated RBC % Lymphocytes # (Manual) Monocytes # (Manual) PT INR Heparin Anti-Xa Level POC ABG pO2 ABG pH ABG Hemoglobin ABG Oxyhemoglobin ABG pO2 ABG HCO3 ABG O2 Saturation ABG Base Excess ABG Potassium ABG Chloride ABG Glucose Oxyhemoglobin Sodium Potassium Chloride Carbon Dioxide BUN Creatinine Glucose POC Glucose 118 H 116 H Lactic Acid Calcium AST Phosphorus Total Protein Albumin C-Reactive Protein Arterial Blood Glucose Arterial Blood Ionized Calcium Urine WBC (Auto) Crossmatch 01/09/20 01/09/20 01/09/20 05:52 05:52 13:03 WBC RBC Hgb Hct MCHC RDW Plt Count MCH Lymph % (Auto) Lymph # Lymph # (Auto) Seg Neutrophils % Seg Neuts % (Manual) Lymphocytes % (Manual) Seg Neutrophils # Seg Neutrophils # Man Nucleated RBC % Lymphocytes # (Manual) Monocytes # (Manual) PT 17.1 H INR 1.36 H Heparin Anti-Xa Level POC ABG pO2 ABG pH ABG Hemoglobin ABG Oxyhemoglobin ABG pO2 ABG HCO3 ABG O2 Saturation ABG Base Excess ABG Potassium ABG Chloride ABG Glucose Oxyhemoglobin Sodium 162 H* Potassium 3.0 L D Chloride 128.3 H Carbon Dioxide BUN 23 H Creatinine Glucose POC Glucose 55 L Lactic Acid Calcium 7.6 L AST Phosphorus Total Protein Albumin C-Reactive Protein Arterial Blood Glucose Arterial Blood Ionized Calcium Urine WBC (Auto) Crossmatch 01/09/20 01/09/20 01/09/20 21:22 21:50 22:28 WBC RBC Hgb Hct MCHC RDW Plt Count MCH Lymph % (Auto) Lymph # Lymph # (Auto) Seg Neutrophils % Seg Neuts % (Manual) Lymphocytes % (Manual) Seg Neutrophils # Seg Neutrophils # Man Nucleated RBC % Lymphocytes # (Manual) Monocytes # (Manual) PT INR Heparin Anti-Xa Level POC ABG pO2 ABG pH ABG Hemoglobin ABG Oxyhemoglobin ABG pO2 ABG HCO3 ABG O2 Saturation ABG Base Excess ABG Potassium ABG Chloride ABG Glucose Oxyhemoglobin Sodium 159 H Potassium 5.1 H D Chloride 128.5 H Carbon Dioxide 16 L BUN 23 H Creatinine Glucose 51 L POC Glucose 52 L 106 H Lactic Acid Calcium 8.2 L AST Phosphorus Total Protein Albumin C-Reactive Protein Arterial Blood Glucose Arterial Blood Ionized Calcium Urine WBC (Auto) Crossmatch 01/10/20 01/10/20 01/10/20 05:23 09:11 10:10 WBC 13.4 H RBC Hgb Hct MCHC RDW Plt Count MCH Lymph % (Auto) 7.2 L Lymph # 1.0 L Lymph # (Auto) Seg Neutrophils % 90.0 H Seg Neuts % (Manual) Lymphocytes % (Manual) Seg Neutrophils # 12.0 H Seg Neutrophils # Man Nucleated RBC % Lymphocytes # (Manual) Monocytes # (Manual) PT INR Heparin Anti-Xa Level POC ABG pO2 ABG pH ABG Hemoglobin ABG Oxyhemoglobin ABG pO2 ABG HCO3 ABG O2 Saturation ABG Base Excess ABG Potassium ABG Chloride ABG Glucose Oxyhemoglobin Sodium 155 H Potassium Chloride 122.8 H Carbon Dioxide 21 L BUN 19 H Creatinine Glucose POC Glucose 120 H Lactic Acid Calcium AST Phosphorus Total Protein Albumin C-Reactive Protein Arterial Blood Glucose Arterial Blood Ionized Calcium Urine WBC (Auto) Crossmatch 01/10/20 01/10/20 01/10/20 11:47 11:57 17:09 WBC RBC Hgb Hct MCHC RDW Plt Count MCH Lymph % (Auto) Lymph # Lymph # (Auto) Seg Neutrophils % Seg Neuts % (Manual) Lymphocytes % (Manual) Seg Neutrophils # Seg Neutrophils # Man Nucleated RBC % Lymphocytes # (Manual) Monocytes # (Manual) PT INR Heparin Anti-Xa Level POC ABG pO2 ABG pH ABG Hemoglobin ABG Oxyhemoglobin ABG pO2 ABG HCO3 ABG O2 Saturation ABG Base Excess ABG Potassium ABG Chloride ABG Glucose Oxyhemoglobin Sodium 153 H Potassium Chloride 118.3 H Carbon Dioxide 20 L BUN 19 H Creatinine Glucose 113 H POC Glucose 142 H 125 H Lactic Acid Calcium AST Phosphorus Total Protein Albumin C-Reactive Protein Arterial Blood Glucose Arterial Blood Ionized Calcium Urine WBC (Auto) Crossmatch 01/10/20 01/10/20 01/11/20 20:27 22:00 00:45 WBC RBC Hgb Hct MCHC RDW Plt Count MCH Lymph % (Auto) Lymph # Lymph # (Auto) Seg Neutrophils % Seg Neuts % (Manual) Lymphocytes % (Manual) Seg Neutrophils # Seg Neutrophils # Man Nucleated RBC % Lymphocytes # (Manual) Monocytes # (Manual) PT INR Heparin Anti-Xa Level POC ABG pO2 ABG pH ABG Hemoglobin ABG Oxyhemoglobin ABG pO2 ABG HCO3 ABG O2 Saturation ABG Base Excess ABG Potassium ABG Chloride ABG Glucose Oxyhemoglobin Sodium 153 H 154 H Potassium 3.3 L 3.2 L Chloride 117.0 H 118.9 H Carbon Dioxide 20 L BUN Creatinine Glucose POC Glucose 136 H Lactic Acid Calcium 8.3 L 8.0 L AST Phosphorus Total Protein Albumin C-Reactive Protein Arterial Blood Glucose Arterial Blood Ionized Calcium Urine WBC (Auto) Crossmatch 01/11/20 01/11/20 01/11/20 07:06 08:03 11:54 WBC RBC Hgb Hct MCHC RDW Plt Count MCH Lymph % (Auto) Lymph # Lymph # (Auto) Seg Neutrophils % Seg Neuts % (Manual) Lymphocytes % (Manual) Seg Neutrophils # Seg Neutrophils # Man Nucleated RBC % Lymphocytes # (Manual) Monocytes # (Manual) PT INR Heparin Anti-Xa Level POC ABG pO2 ABG pH ABG Hemoglobin ABG Oxyhemoglobin ABG pO2 ABG HCO3 ABG O2 Saturation ABG Base Excess ABG Potassium ABG Chloride ABG Glucose Oxyhemoglobin Sodium 151 H Potassium Chloride 118.7 H Carbon Dioxide 21 L BUN Creatinine Glucose 107 H POC Glucose 118 H 164 H Lactic Acid Calcium 8.3 L AST Phosphorus Total Protein Albumin C-Reactive Protein Arterial Blood Glucose Arterial Blood Ionized Calcium Urine WBC (Auto) Crossmatch 01/11/20 01/12/20 01/12/20 16:28 00:19 05:40 WBC RBC Hgb Hct MCHC RDW Plt Count MCH Lymph % (Auto) Lymph # Lymph # (Auto) Seg Neutrophils % Seg Neuts % (Manual) Lymphocytes % (Manual) Seg Neutrophils # Seg Neutrophils # Man Nucleated RBC % Lymphocytes # (Manual) Monocytes # (Manual) PT INR Heparin Anti-Xa Level POC ABG pO2 ABG pH ABG Hemoglobin ABG Oxyhemoglobin ABG pO2 ABG HCO3 ABG O2 Saturation ABG Base Excess ABG Potassium ABG Chloride ABG Glucose Oxyhemoglobin Sodium 148 H Potassium Chloride 111.6 H Carbon Dioxide 19 L BUN Creatinine Glucose 128 H POC Glucose 132 H 179 H Lactic Acid Calcium 8.2 L AST Phosphorus Total Protein Albumin C-Reactive Protein Arterial Blood Glucose Arterial Blood Ionized Calcium Urine WBC (Auto) Crossmatch 01/12/20 01/12/20 01/12/20 06:17 11:37 17:21 WBC RBC Hgb Hct MCHC RDW Plt Count MCH Lymph % (Auto) Lymph # Lymph # (Auto) Seg Neutrophils % Seg Neuts % (Manual) Lymphocytes % (Manual) Seg Neutrophils # Seg Neutrophils # Man Nucleated RBC % Lymphocytes # (Manual) Monocytes # (Manual) PT INR Heparin Anti-Xa Level POC ABG pO2 ABG pH ABG Hemoglobin ABG Oxyhemoglobin ABG pO2 ABG HCO3 ABG O2 Saturation ABG Base Excess ABG Potassium ABG Chloride ABG Glucose Oxyhemoglobin Sodium Potassium Chloride Carbon Dioxide BUN Creatinine Glucose POC Glucose 140 H 142 H 133 H Lactic Acid Calcium AST Phosphorus Total Protein Albumin C-Reactive Protein Arterial Blood Glucose Arterial Blood Ionized Calcium Urine WBC (Auto) Crossmatch 01/12/20 01/13/20 01/13/20 23:14 05:26 07:00 WBC RBC Hgb Hct MCHC RDW Plt Count MCH Lymph % (Auto) Lymph # Lymph # (Auto) Seg Neutrophils % Seg Neuts % (Manual) Lymphocytes % (Manual) Seg Neutrophils # Seg Neutrophils # Man Nucleated RBC % Lymphocytes # (Manual) Monocytes # (Manual) PT INR Heparin Anti-Xa Level POC ABG pO2 ABG pH ABG Hemoglobin ABG Oxyhemoglobin ABG pO2 ABG HCO3 ABG O2 Saturation ABG Base Excess ABG Potassium ABG Chloride ABG Glucose Oxyhemoglobin Sodium Potassium Chloride 110.0 H Carbon Dioxide BUN Creatinine Glucose 139 H POC Glucose 135 H 162 H Lactic Acid Calcium 7.8 L AST Phosphorus Total Protein Albumin C-Reactive Protein Arterial Blood Glucose Arterial Blood Ionized Calcium Urine WBC (Auto) Crossmatch 01/13/20 01/13/20 01/13/20 12:14 17:52 21:40 WBC RBC Hgb Hct MCHC RDW Plt Count MCH Lymph % (Auto) Lymph # Lymph # (Auto) Seg Neutrophils % Seg Neuts % (Manual) Lymphocytes % (Manual) Seg Neutrophils # Seg Neutrophils # Man Nucleated RBC % Lymphocytes # (Manual) Monocytes # (Manual) PT INR Heparin Anti-Xa Level POC ABG pO2 ABG pH ABG Hemoglobin ABG Oxyhemoglobin ABG pO2 ABG HCO3 ABG O2 Saturation ABG Base Excess ABG Potassium ABG Chloride ABG Glucose Oxyhemoglobin Sodium Potassium Chloride Carbon Dioxide BUN Creatinine Glucose POC Glucose 205 H 172 H 186 H Lactic Acid Calcium AST Phosphorus Total Protein Albumin C-Reactive Protein Arterial Blood Glucose Arterial Blood Ionized Calcium Urine WBC (Auto) Crossmatch 01/14/20 01/14/20 01/14/20 04:28 11:01 11:01 WBC 14.8 H RBC 3.20 L Hgb 9.5 L Hct 28.0 L MCHC RDW Plt Count MCH Lymph % (Auto) Lymph # Lymph # (Auto) Seg Neutrophils % Seg Neuts % (Manual) Lymphocytes % (Manual) Seg Neutrophils # Seg Neutrophils # Man Nucleated RBC % Lymphocytes # (Manual) Monocytes # (Manual) PT INR Heparin Anti-Xa Level POC ABG pO2 ABG pH ABG Hemoglobin ABG Oxyhemoglobin ABG pO2 ABG HCO3 ABG O2 Saturation ABG Base Excess ABG Potassium ABG Chloride ABG Glucose Oxyhemoglobin Sodium Potassium 3.2 L Chloride Carbon Dioxide BUN Creatinine 0.4 L Glucose POC Glucose 115 H Lactic Acid Calcium 8.0 L AST Phosphorus Total Protein Albumin C-Reactive Protein Arterial Blood Glucose Arterial Blood Ionized Calcium Urine WBC (Auto) Crossmatch 01/14/20 01/14/20 01/14/20 11:01 16:33 22:32 WBC RBC Hgb Hct MCHC RDW Plt Count MCH Lymph % (Auto) Lymph # Lymph # (Auto) Seg Neutrophils % Seg Neuts % (Manual) Lymphocytes % (Manual) Seg Neutrophils # Seg Neutrophils # Man Nucleated RBC % Lymphocytes # (Manual) Monocytes # (Manual) PT 15.8 H INR 1.23 H Heparin Anti-Xa Level POC ABG pO2 ABG pH ABG Hemoglobin ABG Oxyhemoglobin ABG pO2 ABG HCO3 ABG O2 Saturation ABG Base Excess ABG Potassium ABG Chloride ABG Glucose Oxyhemoglobin Sodium Potassium Chloride Carbon Dioxide BUN Creatinine Glucose POC Glucose 58 L 188 H Lactic Acid Calcium AST Phosphorus Total Protein Albumin C-Reactive Protein Arterial Blood Glucose Arterial Blood Ionized Calcium Urine WBC (Auto) Crossmatch 01/15/20 01/15/20 01/15/20 05:35 06:19 17:17 WBC RBC Hgb Hct MCHC RDW Plt Count MCH Lymph % (Auto) Lymph # Lymph # (Auto) Seg Neutrophils % Seg Neuts % (Manual) Lymphocytes % (Manual) Seg Neutrophils # Seg Neutrophils # Man Nucleated RBC % Lymphocytes # (Manual) Monocytes # (Manual) PT INR Heparin Anti-Xa Level POC ABG pO2 ABG pH ABG Hemoglobin ABG Oxyhemoglobin ABG pO2 ABG HCO3 ABG O2 Saturation ABG Base Excess ABG Potassium ABG Chloride ABG Glucose Oxyhemoglobin Sodium Potassium Chloride Carbon Dioxide BUN Creatinine 0.5 L Glucose 104 H POC Glucose 106 H 183 H Lactic Acid Calcium 7.8 L AST Phosphorus Total Protein Albumin C-Reactive Protein Arterial Blood Glucose Arterial Blood Ionized Calcium Urine WBC (Auto) Crossmatch 01/15/20 01/16/20 01/16/20 22:29 05:35 05:59 WBC 14.7 H RBC 3.04 L Hgb 9.0 L Hct 27.0 L MCHC RDW Plt Count MCH Lymph % (Auto) 9.1 L Lymph # Lymph # (Auto) Seg Neutrophils % 87.3 H Seg Neuts % (Manual) Lymphocytes % (Manual) Seg Neutrophils # 12.9 H Seg Neutrophils # Man Nucleated RBC % Lymphocytes # (Manual) Monocytes # (Manual) PT INR Heparin Anti-Xa Level POC ABG pO2 ABG pH ABG Hemoglobin ABG Oxyhemoglobin ABG pO2 ABG HCO3 ABG O2 Saturation ABG Base Excess ABG Potassium ABG Chloride ABG Glucose Oxyhemoglobin Sodium Potassium Chloride Carbon Dioxide BUN Creatinine Glucose POC Glucose 228 H 130 H Lactic Acid Calcium AST Phosphorus Total Protein Albumin C-Reactive Protein Arterial Blood Glucose Arterial Blood Ionized Calcium Urine WBC (Auto) Crossmatch 01/16/20 01/16/20 01/16/20 09:52 12:49 17:30 WBC RBC Hgb Hct MCHC RDW Plt Count MCH Lymph % (Auto) Lymph # Lymph # (Auto) Seg Neutrophils % Seg Neuts % (Manual) Lymphocytes % (Manual) Seg Neutrophils # Seg Neutrophils # Man Nucleated RBC % Lymphocytes # (Manual) Monocytes # (Manual) PT INR Heparin Anti-Xa Level POC ABG pO2 ABG pH ABG Hemoglobin ABG Oxyhemoglobin ABG pO2 ABG HCO3 ABG O2 Saturation ABG Base Excess ABG Potassium ABG Chloride ABG Glucose Oxyhemoglobin Sodium Potassium Chloride Carbon Dioxide BUN Creatinine Glucose POC Glucose 122 H 142 H 192 H Lactic Acid Calcium AST Phosphorus Total Protein Albumin C-Reactive Protein Arterial Blood Glucose Arterial Blood Ionized Calcium Urine WBC (Auto) Crossmatch 01/16/20 01/17/20 01/17/20 23:01 08:36 08:36 WBC 12.7 H RBC 2.98 L Hgb 8.9 L Hct 26.4 L MCHC RDW Plt Count MCH Lymph % (Auto) 8.8 L Lymph # 1.1 L Lymph # (Auto) Seg Neutrophils % 86.7 H Seg Neuts % (Manual) Lymphocytes % (Manual) Seg Neutrophils # 11.0 H Seg Neutrophils # Man Nucleated RBC % Lymphocytes # (Manual) Monocytes # (Manual) PT INR Heparin Anti-Xa Level POC ABG pO2 ABG pH ABG Hemoglobin ABG Oxyhemoglobin ABG pO2 ABG HCO3 ABG O2 Saturation ABG Base Excess ABG Potassium ABG Chloride ABG Glucose Oxyhemoglobin Sodium Potassium 3.3 L D Chloride Carbon Dioxide BUN Creatinine 0.4 L Glucose POC Glucose 141 H Lactic Acid Calcium 8.1 L AST Phosphorus Total Protein 4.6 L Albumin 1.6 L C-Reactive Protein Arterial Blood Glucose Arterial Blood Ionized Calcium Urine WBC (Auto) Crossmatch 01/17/20 01/17/20 01/18/20 11:43 23:56 06:27 WBC RBC Hgb Hct MCHC RDW Plt Count MCH Lymph % (Auto) Lymph # Lymph # (Auto) Seg Neutrophils % Seg Neuts % (Manual) Lymphocytes % (Manual) Seg Neutrophils # Seg Neutrophils # Man Nucleated RBC % Lymphocytes # (Manual) Monocytes # (Manual) PT INR Heparin Anti-Xa Level POC ABG pO2 ABG pH ABG Hemoglobin ABG Oxyhemoglobin ABG pO2 ABG HCO3 ABG O2 Saturation ABG Base Excess ABG Potassium ABG Chloride ABG Glucose Oxyhemoglobin Sodium Potassium Chloride Carbon Dioxide BUN Creatinine Glucose POC Glucose 137 H 215 H 122 H Lactic Acid Calcium AST Phosphorus Total Protein Albumin C-Reactive Protein Arterial Blood Glucose Arterial Blood Ionized Calcium Urine WBC (Auto) Crossmatch 01/18/20 01/18/20 01/18/20 07:31 07:31 11:39 WBC 12.1 H RBC 3.23 L Hgb 9.7 L Hct 28.7 L MCHC RDW Plt Count MCH Lymph % (Auto) 9.2 L Lymph # 1.1 L Lymph # (Auto) Seg Neutrophils % 85.0 H Seg Neuts % (Manual) Lymphocytes % (Manual) Seg Neutrophils # 10.3 H Seg Neutrophils # Man Nucleated RBC % Lymphocytes # (Manual) Monocytes # (Manual) PT INR Heparin Anti-Xa Level POC ABG pO2 ABG pH ABG Hemoglobin ABG Oxyhemoglobin ABG pO2 ABG HCO3 ABG O2 Saturation ABG Base Excess ABG Potassium ABG Chloride ABG Glucose Oxyhemoglobin Sodium Potassium Chloride Carbon Dioxide BUN Creatinine 0.4 L Glucose 108 H POC Glucose 172 H Lactic Acid Calcium AST Phosphorus Total Protein 5.3 L Albumin 2.1 L C-Reactive Protein Arterial Blood Glucose Arterial Blood Ionized Calcium Urine WBC (Auto) Crossmatch 01/18/20 01/19/20 01/19/20 18:22 00:15 11:30 WBC RBC Hgb Hct MCHC RDW Plt Count MCH Lymph % (Auto) Lymph # Lymph # (Auto) Seg Neutrophils % Seg Neuts % (Manual) Lymphocytes % (Manual) Seg Neutrophils # Seg Neutrophils # Man Nucleated RBC % Lymphocytes # (Manual) Monocytes # (Manual) PT INR Heparin Anti-Xa Level POC ABG pO2 ABG pH ABG Hemoglobin ABG Oxyhemoglobin ABG pO2 ABG HCO3 ABG O2 Saturation ABG Base Excess ABG Potassium ABG Chloride ABG Glucose Oxyhemoglobin Sodium Potassium Chloride Carbon Dioxide BUN Creatinine Glucose POC Glucose 119 H 135 H 163 H Lactic Acid Calcium AST Phosphorus Total Protein Albumin C-Reactive Protein Arterial Blood Glucose Arterial Blood Ionized Calcium Urine WBC (Auto) Crossmatch 01/19/20 01/19/20 01/20/20 17:44 22:59 03:44 WBC 11.1 H RBC 2.77 L Hgb 8.4 L Hct 25.0 L MCHC RDW Plt Count MCH Lymph % (Auto) Lymph # Lymph # (Auto) Seg Neutrophils % 74.6 H Seg Neuts % (Manual) Lymphocytes % (Manual) Seg Neutrophils # 8.3 H Seg Neutrophils # Man Nucleated RBC % Lymphocytes # (Manual) Monocytes # (Manual) PT INR Heparin Anti-Xa Level POC ABG pO2 ABG pH ABG Hemoglobin ABG Oxyhemoglobin ABG pO2 ABG HCO3 ABG O2 Saturation ABG Base Excess ABG Potassium ABG Chloride ABG Glucose Oxyhemoglobin Sodium Potassium Chloride Carbon Dioxide BUN Creatinine Glucose POC Glucose 161 H 182 H Lactic Acid Calcium AST Phosphorus Total Protein Albumin C-Reactive Protein Arterial Blood Glucose Arterial Blood Ionized Calcium Urine WBC (Auto) Crossmatch 01/20/20 01/21/20 01/21/20 03:44 00:07 05:51 WBC RBC 2.84 L Hgb 8.6 L Hct 25.5 L MCHC RDW Plt Count 463 H MCH Lymph % (Auto) Lymph # Lymph # (Auto) Seg Neutrophils % 76.9 H Seg Neuts % (Manual) Lymphocytes % (Manual) Seg Neutrophils # 7.8 H Seg Neutrophils # Man Nucleated RBC % Lymphocytes # (Manual) Monocytes # (Manual) PT INR Heparin Anti-Xa Level POC ABG pO2 ABG pH ABG Hemoglobin ABG Oxyhemoglobin ABG pO2 ABG HCO3 ABG O2 Saturation ABG Base Excess ABG Potassium ABG Chloride ABG Glucose Oxyhemoglobin Sodium Potassium Chloride Carbon Dioxide BUN Creatinine 0.4 L Glucose POC Glucose 68 L Lactic Acid Calcium 7.9 L AST Phosphorus Total Protein 4.7 L Albumin 1.9 L C-Reactive Protein Arterial Blood Glucose Arterial Blood Ionized Calcium Urine WBC (Auto) Crossmatch 01/21/20 01/21/20 01/21/20 05:51 05:58 11:25 WBC RBC Hgb Hct MCHC RDW Plt Count MCH Lymph % (Auto) Lymph # Lymph # (Auto) Seg Neutrophils % Seg Neuts % (Manual) Lymphocytes % (Manual) Seg Neutrophils # Seg Neutrophils # Man Nucleated RBC % Lymphocytes # (Manual) Monocytes # (Manual) PT INR Heparin Anti-Xa Level POC ABG pO2 ABG pH ABG Hemoglobin ABG Oxyhemoglobin ABG pO2 ABG HCO3 ABG O2 Saturation ABG Base Excess ABG Potassium ABG Chloride ABG Glucose Oxyhemoglobin Sodium Potassium Chloride Carbon Dioxide 20 L BUN Creatinine 0.5 L Glucose 130 H POC Glucose 185 H 163 H Lactic Acid Calcium 7.6 L AST Phosphorus Total Protein 5.0 L Albumin 1.9 L C-Reactive Protein Arterial Blood Glucose Arterial Blood Ionized Calcium Urine WBC (Auto) Crossmatch 01/21/20 01/21/20 01/22/20 16:22 21:17 01:28 WBC RBC 2.60 L Hgb 8.0 L Hct 23.3 L MCHC RDW Plt Count MCH Lymph % (Auto) Lymph # Lymph # (Auto) Seg Neutrophils % 74.8 H Seg Neuts % (Manual) Lymphocytes % (Manual) Seg Neutrophils # Seg Neutrophils # Man Nucleated RBC % Lymphocytes # (Manual) Monocytes # (Manual) PT INR Heparin Anti-Xa Level POC ABG pO2 ABG pH ABG Hemoglobin ABG Oxyhemoglobin ABG pO2 ABG HCO3 ABG O2 Saturation ABG Base Excess ABG Potassium ABG Chloride ABG Glucose Oxyhemoglobin Sodium Potassium Chloride Carbon Dioxide BUN Creatinine Glucose POC Glucose 177 H 67 L Lactic Acid Calcium AST Phosphorus Total Protein Albumin C-Reactive Protein Arterial Blood Glucose Arterial Blood Ionized Calcium Urine WBC (Auto) Crossmatch 01/22/20 01/22/20 01/22/20 01:28 01:28 12:06 WBC RBC Hgb Hct MCHC RDW Plt Count MCH Lymph % (Auto) Lymph # Lymph # (Auto) Seg Neutrophils % Seg Neuts % (Manual) Lymphocytes % (Manual) Seg Neutrophils # Seg Neutrophils # Man Nucleated RBC % Lymphocytes # (Manual) Monocytes # (Manual) PT INR Heparin Anti-Xa Level POC ABG pO2 ABG pH ABG Hemoglobin ABG Oxyhemoglobin ABG pO2 ABG HCO3 ABG O2 Saturation ABG Base Excess ABG Potassium ABG Chloride ABG Glucose Oxyhemoglobin Sodium Potassium Chloride 107.6 H Carbon Dioxide BUN Creatinine 0.4 L Glucose 152 H POC Glucose 203 H 140 H Lactic Acid Calcium 7.5 L AST Phosphorus Total Protein 4.0 L Albumin 2.0 L C-Reactive Protein Arterial Blood Glucose Arterial Blood Ionized Calcium Urine WBC (Auto) Crossmatch 01/22/20 01/22/20 01/23/20 16:24 22:55 06:10 WBC RBC 2.68 L Hgb 8.6 L Hct 24.1 L MCHC 36 H RDW Plt Count MCH Lymph % (Auto) Lymph # Lymph # (Auto) Seg Neutrophils % Seg Neuts % (Manual) 71.0 H Lymphocytes % (Manual) Seg Neutrophils # Seg Neutrophils # Man Nucleated RBC % Lymphocytes # (Manual) Monocytes # (Manual) PT INR Heparin Anti-Xa Level POC ABG pO2 ABG pH ABG Hemoglobin ABG Oxyhemoglobin ABG pO2 ABG HCO3 ABG O2 Saturation ABG Base Excess ABG Potassium ABG Chloride ABG Glucose Oxyhemoglobin Sodium Potassium Chloride Carbon Dioxide BUN Creatinine Glucose POC Glucose 205 H 196 H Lactic Acid Calcium AST Phosphorus Total Protein Albumin C-Reactive Protein Arterial Blood Glucose Arterial Blood Ionized Calcium Urine WBC (Auto) Crossmatch 01/23/20 01/23/20 01/23/20 06:10 07:35 11:59 WBC RBC Hgb Hct MCHC RDW Plt Count MCH Lymph % (Auto) Lymph # Lymph # (Auto) Seg Neutrophils % Seg Neuts % (Manual) Lymphocytes % (Manual) Seg Neutrophils # Seg Neutrophils # Man Nucleated RBC % Lymphocytes # (Manual) Monocytes # (Manual) PT INR Heparin Anti-Xa Level POC ABG pO2 ABG pH ABG Hemoglobin ABG Oxyhemoglobin ABG pO2 ABG HCO3 ABG O2 Saturation ABG Base Excess ABG Potassium ABG Chloride ABG Glucose Oxyhemoglobin Sodium Potassium Chloride 108.8 H Carbon Dioxide BUN Creatinine 0.4 L Glucose 105 H POC Glucose 111 H 123 H Lactic Acid Calcium 8.0 L AST Phosphorus Total Protein 4.9 L D Albumin 2.0 L C-Reactive Protein Arterial Blood Glucose Arterial Blood Ionized Calcium Urine WBC (Auto) Crossmatch 01/23/20 01/24/20 01/24/20 22:45 11:24 16:41 WBC RBC Hgb Hct MCHC RDW Plt Count MCH Lymph % (Auto) Lymph # Lymph # (Auto) Seg Neutrophils % Seg Neuts % (Manual) Lymphocytes % (Manual) Seg Neutrophils # Seg Neutrophils # Man Nucleated RBC % Lymphocytes # (Manual) Monocytes # (Manual) PT INR Heparin Anti-Xa Level POC ABG pO2 ABG pH ABG Hemoglobin ABG Oxyhemoglobin ABG pO2 ABG HCO3 ABG O2 Saturation ABG Base Excess ABG Potassium ABG Chloride ABG Glucose Oxyhemoglobin Sodium Potassium Chloride Carbon Dioxide BUN Creatinine Glucose POC Glucose 180 H 182 H 177 H Lactic Acid Calcium AST Phosphorus Total Protein Albumin C-Reactive Protein Arterial Blood Glucose Arterial Blood Ionized Calcium Urine WBC (Auto) Crossmatch 01/24/20 01/25/20 01/25/20 23:11 07:12 11:35 WBC RBC Hgb Hct MCHC RDW Plt Count MCH Lymph % (Auto) Lymph # Lymph # (Auto) Seg Neutrophils % Seg Neuts % (Manual) Lymphocytes % (Manual) Seg Neutrophils # Seg Neutrophils # Man Nucleated RBC % Lymphocytes # (Manual) Monocytes # (Manual) PT INR Heparin Anti-Xa Level POC ABG pO2 ABG pH ABG Hemoglobin ABG Oxyhemoglobin ABG pO2 ABG HCO3 ABG O2 Saturation ABG Base Excess ABG Potassium ABG Chloride ABG Glucose Oxyhemoglobin Sodium Potassium Chloride Carbon Dioxide BUN Creatinine Glucose POC Glucose 142 H 135 H 142 H Lactic Acid Calcium AST Phosphorus Total Protein Albumin C-Reactive Protein Arterial Blood Glucose Arterial Blood Ionized Calcium Urine WBC (Auto) Crossmatch 01/25/20 01/26/20 01/26/20 16:33 00:04 11:35 WBC RBC Hgb Hct MCHC RDW Plt Count MCH Lymph % (Auto) Lymph # Lymph # (Auto) Seg Neutrophils % Seg Neuts % (Manual) Lymphocytes % (Manual) Seg Neutrophils # Seg Neutrophils # Man Nucleated RBC % Lymphocytes # (Manual) Monocytes # (Manual) PT INR Heparin Anti-Xa Level POC ABG pO2 ABG pH ABG Hemoglobin ABG Oxyhemoglobin ABG pO2 ABG HCO3 ABG O2 Saturation ABG Base Excess ABG Potassium ABG Chloride ABG Glucose Oxyhemoglobin Sodium Potassium Chloride Carbon Dioxide BUN Creatinine Glucose POC Glucose 247 H 233 H 200 H Lactic Acid Calcium AST Phosphorus Total Protein Albumin C-Reactive Protein Arterial Blood Glucose Arterial Blood Ionized Calcium Urine WBC (Auto) Crossmatch 01/26/20 01/26/20 01/26/20 16:30 16:30 17:19 WBC RBC Hgb 7.4 L Hct 22.0 L MCHC RDW Plt Count MCH Lymph % (Auto) Lymph # Lymph # (Auto) Seg Neutrophils % Seg Neuts % (Manual) Lymphocytes % (Manual) Seg Neutrophils # Seg Neutrophils # Man Nucleated RBC % Lymphocytes # (Manual) Monocytes # (Manual) PT 18.4 H INR 1.50 H Heparin Anti-Xa Level POC ABG pO2 ABG pH ABG Hemoglobin ABG Oxyhemoglobin ABG pO2 ABG HCO3 ABG O2 Saturation ABG Base Excess ABG Potassium ABG Chloride ABG Glucose Oxyhemoglobin Sodium Potassium Chloride Carbon Dioxide BUN Creatinine Glucose POC Glucose 67 L Lactic Acid Calcium AST Phosphorus Total Protein Albumin C-Reactive Protein Arterial Blood Glucose Arterial Blood Ionized Calcium Urine WBC (Auto) Crossmatch 01/26/20 01/26/20 01/27/20 20:24 21:32 00:16 WBC RBC Hgb Hct MCHC RDW Plt Count MCH Lymph % (Auto) Lymph # Lymph # (Auto) Seg Neutrophils % Seg Neuts % (Manual) Lymphocytes % (Manual) Seg Neutrophils # Seg Neutrophils # Man Nucleated RBC % Lymphocytes # (Manual) Monocytes # (Manual) PT INR Heparin Anti-Xa Level POC ABG pO2 51.8 L ABG pH ABG Hemoglobin 8.5 L ABG Oxyhemoglobin 84.7 L ABG pO2 ABG HCO3 ABG O2 Saturation ABG Base Excess ABG Potassium ABG Chloride ABG Glucose Oxyhemoglobin Sodium Potassium Chloride Carbon Dioxide BUN Creatinine Glucose POC Glucose 162 H 141 H Lactic Acid Calcium AST Phosphorus Total Protein Albumin C-Reactive Protein Arterial Blood Glucose Arterial Blood Ionized Calcium Urine WBC (Auto) Crossmatch 01/27/20 01/27/20 01/27/20 01:42 02:18 05:57 WBC RBC Hgb Hct MCHC RDW Plt Count MCH Lymph % (Auto) Lymph # Lymph # (Auto) Seg Neutrophils % Seg Neuts % (Manual) Lymphocytes % (Manual) Seg Neutrophils # Seg Neutrophils # Man Nucleated RBC % Lymphocytes # (Manual) Monocytes # (Manual) PT INR Heparin Anti-Xa Level 2.00 H POC ABG pO2 ABG pH ABG Hemoglobin ABG Oxyhemoglobin ABG pO2 ABG HCO3 ABG O2 Saturation ABG Base Excess ABG Potassium ABG Chloride ABG Glucose Oxyhemoglobin Sodium Potassium Chloride Carbon Dioxide BUN Creatinine Glucose POC Glucose 183 H 124 H Lactic Acid Calcium AST Phosphorus Total Protein Albumin C-Reactive Protein Arterial Blood Glucose Arterial Blood Ionized Calcium Urine WBC (Auto) Crossmatch 01/27/20 01/27/20 01/27/20 06:30 06:30 12:23 WBC RBC 2.75 L Hgb 8.4 L Hct 24.9 L MCHC RDW 16.0 H Plt Count 474 H MCH Lymph % (Auto) 12.7 L Lymph # Lymph # (Auto) Seg Neutrophils % 83.2 H Seg Neuts % (Manual) Lymphocytes % (Manual) Seg Neutrophils # 8.4 H Seg Neutrophils # Man Nucleated RBC % Lymphocytes # (Manual) Monocytes # (Manual) PT INR Heparin Anti-Xa Level POC ABG pO2 ABG pH ABG Hemoglobin ABG Oxyhemoglobin ABG pO2 ABG HCO3 ABG O2 Saturation ABG Base Excess ABG Potassium ABG Chloride ABG Glucose Oxyhemoglobin Sodium Potassium 3.5 L Chloride 110.2 H Carbon Dioxide BUN Creatinine 0.4 L Glucose 101 H POC Glucose 126 H Lactic Acid Calcium 7.8 L AST Phosphorus Total Protein Albumin C-Reactive Protein Arterial Blood Glucose Arterial Blood Ionized Calcium Urine WBC (Auto) Crossmatch 01/27/20 01/27/20 01/28/20 17:31 23:40 00:00 WBC RBC Hgb Hct MCHC RDW Plt Count MCH Lymph % (Auto) Lymph # Lymph # (Auto) Seg Neutrophils % Seg Neuts % (Manual) Lymphocytes % (Manual) Seg Neutrophils # Seg Neutrophils # Man Nucleated RBC % Lymphocytes # (Manual) Monocytes # (Manual) PT INR Heparin Anti-Xa Level 2.00 H POC ABG pO2 ABG pH ABG Hemoglobin ABG Oxyhemoglobin ABG pO2 ABG HCO3 ABG O2 Saturation ABG Base Excess ABG Potassium ABG Chloride ABG Glucose Oxyhemoglobin Sodium Potassium Chloride Carbon Dioxide BUN Creatinine Glucose POC Glucose 133 H 136 H Lactic Acid Calcium AST Phosphorus Total Protein Albumin C-Reactive Protein Arterial Blood Glucose Arterial Blood Ionized Calcium Urine WBC (Auto) Crossmatch 01/28/20 01/28/20 01/28/20 04:26 04:26 05:35 WBC RBC Hgb 9.6 L Hct 28.5 L MCHC RDW Plt Count 508 H MCH Lymph % (Auto) Lymph # Lymph # (Auto) Seg Neutrophils % Seg Neuts % (Manual) Lymphocytes % (Manual) Seg Neutrophils # Seg Neutrophils # Man Nucleated RBC % Lymphocytes # (Manual) Monocytes # (Manual) PT INR Heparin Anti-Xa Level POC ABG pO2 ABG pH ABG Hemoglobin ABG Oxyhemoglobin ABG pO2 ABG HCO3 ABG O2 Saturation ABG Base Excess ABG Potassium ABG Chloride ABG Glucose Oxyhemoglobin Sodium Potassium Chloride Carbon Dioxide 19 L BUN 20 H Creatinine 0.5 L Glucose 103 H POC Glucose 135 H Lactic Acid Calcium 7.9 L AST Phosphorus Total Protein Albumin C-Reactive Protein Arterial Blood Glucose Arterial Blood Ionized Calcium Urine WBC (Auto) Crossmatch 01/28/20 01/28/20 01/28/20 08:50 11:10 11:51 WBC RBC Hgb Hct MCHC RDW Plt Count MCH Lymph % (Auto) Lymph # Lymph # (Auto) Seg Neutrophils % Seg Neuts % (Manual) Lymphocytes % (Manual) Seg Neutrophils # Seg Neutrophils # Man Nucleated RBC % Lymphocytes # (Manual) Monocytes # (Manual) PT INR Heparin Anti-Xa Level 0.74 H POC ABG pO2 67.2 L ABG pH ABG Hemoglobin 9.3 L ABG Oxyhemoglobin ABG pO2 ABG HCO3 ABG O2 Saturation ABG Base Excess ABG Potassium ABG Chloride ABG Glucose Oxyhemoglobin Sodium Potassium Chloride Carbon Dioxide BUN Creatinine Glucose POC Glucose 160 H Lactic Acid Calcium AST Phosphorus Total Protein Albumin C-Reactive Protein Arterial Blood Glucose Arterial Blood Ionized Calcium Urine WBC (Auto) Crossmatch 01/28/20 01/28/20 01/29/20 17:19 23:53 03:52 WBC RBC Hgb Hct MCHC RDW Plt Count MCH Lymph % (Auto) Lymph # Lymph # (Auto) Seg Neutrophils % Seg Neuts % (Manual) Lymphocytes % (Manual) Seg Neutrophils # Seg Neutrophils # Man Nucleated RBC % Lymphocytes # (Manual) Monocytes # (Manual) PT INR Heparin Anti-Xa Level POC ABG pO2 ABG pH 7.510 H ABG Hemoglobin 7.3 L ABG Oxyhemoglobin ABG pO2 357.0 H ABG HCO3 19.6 L ABG O2 Saturation 99.6 H ABG Base Excess -2.9 L ABG Potassium ABG Chloride ABG Glucose Oxyhemoglobin Sodium Potassium Chloride Carbon Dioxide BUN Creatinine Glucose POC Glucose 177 H 142 H Lactic Acid Calcium AST Phosphorus Total Protein Albumin C-Reactive Protein Arterial Blood Glucose Arterial Blood Ionized Calcium Urine WBC (Auto) Crossmatch 01/29/20 01/29/20 01/29/20 04:58 04:58 06:01 WBC 13.1 H RBC 2.75 L Hgb 8.6 L Hct 25.6 L MCHC RDW 17.7 H Plt Count MCH Lymph % (Auto) Lymph # Lymph # (Auto) Seg Neutrophils % Seg Neuts % (Manual) 91.0 H Lymphocytes % (Manual) 6.0 L Seg Neutrophils # Seg Neutrophils # Man 11.9 H Nucleated RBC % 1.0 H Lymphocytes # (Manual) 0.8 L Monocytes # (Manual) PT INR Heparin Anti-Xa Level POC ABG pO2 ABG pH ABG Hemoglobin ABG Oxyhemoglobin ABG pO2 ABG HCO3 ABG O2 Saturation ABG Base Excess ABG Potassium ABG Chloride ABG Glucose Oxyhemoglobin Sodium 148 H Potassium 3.5 L D Chloride 113.2 H Carbon Dioxide 21 L BUN 20 H Creatinine Glucose 137 H POC Glucose 167 H Lactic Acid Calcium 8.1 L AST Phosphorus Total Protein Albumin C-Reactive Protein Arterial Blood Glucose Arterial Blood Ionized Calcium Urine WBC (Auto) Crossmatch 01/29/20 01/29/20 01/29/20 11:45 17:52 23:49 WBC RBC Hgb Hct MCHC RDW Plt Count MCH Lymph % (Auto) Lymph # Lymph # (Auto) Seg Neutrophils % Seg Neuts % (Manual) Lymphocytes % (Manual) Seg Neutrophils # Seg Neutrophils # Man Nucleated RBC % Lymphocytes # (Manual) Monocytes # (Manual) PT INR Heparin Anti-Xa Level POC ABG pO2 ABG pH ABG Hemoglobin ABG Oxyhemoglobin ABG pO2 ABG HCO3 ABG O2 Saturation ABG Base Excess ABG Potassium ABG Chloride ABG Glucose Oxyhemoglobin Sodium Potassium Chloride Carbon Dioxide BUN Creatinine Glucose POC Glucose 185 H 226 H 141 H Lactic Acid Calcium AST Phosphorus Total Protein Albumin C-Reactive Protein Arterial Blood Glucose Arterial Blood Ionized Calcium Urine WBC (Auto) Crossmatch 01/29/20 01/30/20 01/30/20 Unknown 03:24 04:00 WBC RBC Hgb 7.8 L Hct 23.5 L MCHC RDW Plt Count MCH Lymph % (Auto) Lymph # Lymph # (Auto) Seg Neutrophils % Seg Neuts % (Manual) Lymphocytes % (Manual) Seg Neutrophils # Seg Neutrophils # Man Nucleated RBC % Lymphocytes # (Manual) Monocytes # (Manual) PT INR Heparin Anti-Xa Level POC ABG pO2 ABG pH 7.485 H ABG Hemoglobin 6.7 L ABG Oxyhemoglobin ABG pO2 102.0 H ABG HCO3 ABG O2 Saturation ABG Base Excess ABG Potassium ABG Chloride ABG Glucose Oxyhemoglobin Sodium Potassium Chloride Carbon Dioxide BUN Creatinine Glucose POC Glucose Lactic Acid Calcium AST Phosphorus Total Protein Albumin C-Reactive Protein 14.80 H Arterial Blood Glucose Arterial Blood Ionized Calcium Urine WBC (Auto) Crossmatch 01/30/20 01/30/20 01/30/20 05:50 11:15 17:07 WBC RBC Hgb Hct MCHC RDW Plt Count MCH Lymph % (Auto) Lymph # Lymph # (Auto) Seg Neutrophils % Seg Neuts % (Manual) Lymphocytes % (Manual) Seg Neutrophils # Seg Neutrophils # Man Nucleated RBC % Lymphocytes # (Manual) Monocytes # (Manual) PT INR Heparin Anti-Xa Level POC ABG pO2 ABG pH ABG Hemoglobin ABG Oxyhemoglobin ABG pO2 ABG HCO3 ABG O2 Saturation ABG Base Excess ABG Potassium ABG Chloride ABG Glucose Oxyhemoglobin Sodium Potassium Chloride Carbon Dioxide BUN Creatinine Glucose POC Glucose 122 H 207 H 124 H Lactic Acid Calcium AST Phosphorus Total Protein Albumin C-Reactive Protein Arterial Blood Glucose Arterial Blood Ionized Calcium Urine WBC (Auto) Crossmatch 01/30/20 01/31/20 01/31/20 17:08 00:10 04:52 WBC RBC Hgb Hct MCHC RDW Plt Count MCH Lymph % (Auto) Lymph # Lymph # (Auto) Seg Neutrophils % Seg Neuts % (Manual) Lymphocytes % (Manual) Seg Neutrophils # Seg Neutrophils # Man Nucleated RBC % Lymphocytes # (Manual) Monocytes # (Manual) PT INR Heparin Anti-Xa Level POC ABG pO2 ABG pH 7.504 H 7.486 H ABG Hemoglobin 7.4 L 6.2 L ABG Oxyhemoglobin ABG pO2 169.2 H 121.7 H ABG HCO3 27.1 H ABG O2 Saturation 99.1 H ABG Base Excess 3.4 H ABG Potassium ABG Chloride ABG Glucose Oxyhemoglobin Sodium Potassium Chloride Carbon Dioxide BUN Creatinine Glucose POC Glucose 191 H Lactic Acid Calcium AST Phosphorus Total Protein Albumin C-Reactive Protein Arterial Blood Glucose Arterial Blood Ionized Calcium Urine WBC (Auto) Crossmatch 01/31/20 01/31/20 01/31/20 05:37 11:59 12:40 WBC RBC 2.41 L Hgb 7.5 L Hct 22.3 L MCHC RDW 22.2 H Plt Count MCH Lymph % (Auto) Lymph # Lymph # (Auto) Seg Neutrophils % Seg Neuts % (Manual) 94.0 H Lymphocytes % (Manual) 2.0 L Seg Neutrophils # Seg Neutrophils # Man 9.4 H Nucleated RBC % Lymphocytes # (Manual) 0.2 L Monocytes # (Manual) PT INR Heparin Anti-Xa Level POC ABG pO2 ABG pH ABG Hemoglobin ABG Oxyhemoglobin ABG pO2 ABG HCO3 ABG O2 Saturation ABG Base Excess ABG Potassium ABG Chloride ABG Glucose Oxyhemoglobin Sodium Potassium Chloride Carbon Dioxide BUN Creatinine Glucose POC Glucose 175 H 220 H Lactic Acid Calcium AST Phosphorus Total Protein Albumin C-Reactive Protein Arterial Blood Glucose Arterial Blood Ionized Calcium Urine WBC (Auto) Crossmatch 01/31/20 01/31/20 01/31/20 12:40 14:40 18:18 WBC RBC Hgb Hct MCHC RDW Plt Count MCH Lymph % (Auto) Lymph # Lymph # (Auto) Seg Neutrophils % Seg Neuts % (Manual) Lymphocytes % (Manual) Seg Neutrophils # Seg Neutrophils # Man Nucleated RBC % Lymphocytes # (Manual) Monocytes # (Manual) PT INR Heparin Anti-Xa Level POC ABG pO2 124.7 H ABG pH 7.542 H ABG Hemoglobin 7.8 L ABG Oxyhemoglobin ABG pO2 ABG HCO3 ABG O2 Saturation ABG Base Excess ABG Potassium ABG Chloride ABG Glucose Oxyhemoglobin Sodium 151 H Potassium 2.1 L* D Chloride 108.9 H Carbon Dioxide BUN 22 H Creatinine Glucose 194 H POC Glucose 181 H Lactic Acid Calcium 8.1 L AST Phosphorus Total Protein 4.8 L Albumin 2.3 L C-Reactive Protein Arterial Blood Glucose Arterial Blood Ionized Calcium Urine WBC (Auto) Crossmatch 02/01/20 02/01/20 02/01/20 00:11 03:14 04:32 WBC 11.9 H RBC 2.47 L Hgb 7.6 L Hct 22.8 L MCHC RDW 22.7 H Plt Count MCH Lymph % (Auto) Lymph # Lymph # (Auto) Seg Neutrophils % Seg Neuts % (Manual) 90.0 H Lymphocytes % (Manual) 5.0 L Seg Neutrophils # Seg Neutrophils # Man 10.7 H Nucleated RBC % Lymphocytes # (Manual) 0.6 L Monocytes # (Manual) PT INR Heparin Anti-Xa Level POC ABG pO2 ABG pH 7.564 H ABG Hemoglobin 7.6 L ABG Oxyhemoglobin ABG pO2 124.1 H ABG HCO3 29.6 H ABG O2 Saturation ABG Base Excess 7.0 H ABG Potassium ABG Chloride ABG Glucose Oxyhemoglobin Sodium Potassium Chloride Carbon Dioxide BUN Creatinine Glucose POC Glucose 190 H Lactic Acid Calcium AST Phosphorus Total Protein Albumin C-Reactive Protein Arterial Blood Glucose Arterial Blood Ionized Calcium Urine WBC (Auto) Crossmatch 02/01/20 02/01/20 02/01/20 04:32 05:28 11:56 WBC RBC Hgb Hct MCHC RDW Plt Count MCH Lymph % (Auto) Lymph # Lymph # (Auto) Seg Neutrophils % Seg Neuts % (Manual) Lymphocytes % (Manual) Seg Neutrophils # Seg Neutrophils # Man Nucleated RBC % Lymphocytes # (Manual) Monocytes # (Manual) PT INR Heparin Anti-Xa Level POC ABG pO2 ABG pH ABG Hemoglobin ABG Oxyhemoglobin ABG pO2 ABG HCO3 ABG O2 Saturation ABG Base Excess ABG Potassium ABG Chloride ABG Glucose Oxyhemoglobin Sodium 149 H Potassium 2.6 L* D Chloride Carbon Dioxide 33 H BUN 23 H Creatinine 0.5 L Glucose 174 H POC Glucose 187 H 195 H Lactic Acid Calcium 8.0 L AST Phosphorus 1.60 L Total Protein Albumin C-Reactive Protein Arterial Blood Glucose Arterial Blood Ionized Calcium Urine WBC (Auto) Crossmatch 02/01/20 02/01/20 02/02/20 18:15 23:35 04:33 WBC RBC Hgb Hct MCHC RDW Plt Count MCH Lymph % (Auto) Lymph # Lymph # (Auto) Seg Neutrophils % Seg Neuts % (Manual) Lymphocytes % (Manual) Seg Neutrophils # Seg Neutrophils # Man Nucleated RBC % Lymphocytes # (Manual) Monocytes # (Manual) PT INR Heparin Anti-Xa Level POC ABG pO2 ABG pH 7.549 H ABG Hemoglobin 9.8 L ABG Oxyhemoglobin ABG pO2 ABG HCO3 ABG O2 Saturation ABG Base Excess ABG Potassium ABG Chloride ABG Glucose Oxyhemoglobin Sodium Potassium Chloride Carbon Dioxide BUN Creatinine Glucose POC Glucose 226 H 252 H Lactic Acid Calcium AST Phosphorus Total Protein Albumin C-Reactive Protein Arterial Blood Glucose Arterial Blood Ionized Calcium Urine WBC (Auto) Crossmatch 02/02/20 02/02/20 02/02/20 05:25 05:25 05:40 WBC 15.5 H RBC 2.43 L Hgb 7.6 L Hct 22.9 L MCHC RDW 23.6 H Plt Count MCH Lymph % (Auto) Lymph # Lymph # (Auto) Seg Neutrophils % Seg Neuts % (Manual) 89.0 H Lymphocytes % (Manual) 3.0 L Seg Neutrophils # Seg Neutrophils # Man 13.8 H Nucleated RBC % Lymphocytes # (Manual) 0.5 L Monocytes # (Manual) 0.9 H PT INR Heparin Anti-Xa Level POC ABG pO2 ABG pH ABG Hemoglobin ABG Oxyhemoglobin ABG pO2 ABG HCO3 ABG O2 Saturation ABG Base Excess ABG Potassium ABG Chloride ABG Glucose Oxyhemoglobin Sodium Potassium 2.6 L* Chloride Carbon Dioxide 33 H BUN 26 H Creatinine Glucose 175 H POC Glucose 181 H Lactic Acid Calcium 7.9 L AST Phosphorus Total Protein Albumin C-Reactive Protein Arterial Blood Glucose Arterial Blood Ionized Calcium Urine WBC (Auto) Crossmatch 02/02/20 02/02/20 02/02/20 11:55 14:45 17:18 WBC RBC Hgb Hct MCHC RDW Plt Count MCH Lymph % (Auto) Lymph # Lymph # (Auto) Seg Neutrophils % Seg Neuts % (Manual) Lymphocytes % (Manual) Seg Neutrophils # Seg Neutrophils # Man Nucleated RBC % Lymphocytes # (Manual) Monocytes # (Manual) PT INR Heparin Anti-Xa Level POC ABG pO2 ABG pH 7.56 H ABG Hemoglobin 7.6 L ABG Oxyhemoglobin ABG pO2 ABG HCO3 ABG O2 Saturation ABG Base Excess ABG Potassium ABG Chloride ABG Glucose Oxyhemoglobin Sodium Potassium Chloride Carbon Dioxide BUN Creatinine Glucose POC Glucose 226 H 227 H Lactic Acid Calcium AST Phosphorus Total Protein Albumin C-Reactive Protein Arterial Blood Glucose Arterial Blood Ionized Calcium Urine WBC (Auto) Crossmatch 02/02/20 02/03/20 02/03/20 20:54 00:02 05:14 WBC 18.7 H RBC 2.45 L Hgb 7.6 L Hct 23.2 L MCHC RDW 23.5 H Plt Count MCH Lymph % (Auto) Lymph # Lymph # (Auto) Seg Neutrophils % Seg Neuts % (Manual) 94.0 H Lymphocytes % (Manual) 3.0 L Seg Neutrophils # Seg Neutrophils # Man 17.6 H Nucleated RBC % Lymphocytes # (Manual) 0.6 L Monocytes # (Manual) PT INR Heparin Anti-Xa Level POC ABG pO2 ABG pH ABG Hemoglobin ABG Oxyhemoglobin ABG pO2 ABG HCO3 ABG O2 Saturation ABG Base Excess ABG Potassium ABG Chloride ABG Glucose Oxyhemoglobin Sodium Potassium 3.2 L D Chloride Carbon Dioxide BUN Creatinine Glucose POC Glucose 204 H Lactic Acid Calcium AST Phosphorus Total Protein Albumin C-Reactive Protein Arterial Blood Glucose Arterial Blood Ionized Calcium Urine WBC (Auto) Crossmatch 02/03/20 02/03/20 02/03/20 05:14 05:14 05:20 WBC RBC Hgb Hct MCHC RDW Plt Count MCH Lymph % (Auto) Lymph # Lymph # (Auto) Seg Neutrophils % Seg Neuts % (Manual) Lymphocytes % (Manual) Seg Neutrophils # Seg Neutrophils # Man Nucleated RBC % Lymphocytes # (Manual) Monocytes # (Manual) PT INR Heparin Anti-Xa Level POC ABG pO2 ABG pH ABG Hemoglobin ABG Oxyhemoglobin ABG pO2 ABG HCO3 ABG O2 Saturation ABG Base Excess ABG Potassium ABG Chloride ABG Glucose Oxyhemoglobin Sodium Potassium 3.1 L Chloride Carbon Dioxide 33 H BUN 29 H Creatinine 0.5 L Glucose 160 H POC Glucose 146 H Lactic Acid Calcium 7.9 L AST Phosphorus 2.30 L Total Protein 4.8 L Albumin 2.4 L C-Reactive Protein Arterial Blood Glucose Arterial Blood Ionized Calcium Urine WBC (Auto) Crossmatch 02/03/20 02/03/20 02/03/20 12:35 18:14 23:26 WBC RBC Hgb Hct MCHC RDW Plt Count MCH Lymph % (Auto) Lymph # Lymph # (Auto) Seg Neutrophils % Seg Neuts % (Manual) Lymphocytes % (Manual) Seg Neutrophils # Seg Neutrophils # Man Nucleated RBC % Lymphocytes # (Manual) Monocytes # (Manual) PT INR Heparin Anti-Xa Level POC ABG pO2 ABG pH ABG Hemoglobin ABG Oxyhemoglobin ABG pO2 ABG HCO3 ABG O2 Saturation ABG Base Excess ABG Potassium ABG Chloride ABG Glucose Oxyhemoglobin Sodium Potassium Chloride Carbon Dioxide BUN Creatinine Glucose POC Glucose 219 H 248 H 173 H Lactic Acid Calcium AST Phosphorus Total Protein Albumin C-Reactive Protein Arterial Blood Glucose Arterial Blood Ionized Calcium Urine WBC (Auto) Crossmatch 02/04/20 02/04/20 02/04/20 05:34 05:36 06:51 WBC RBC Hgb Hct MCHC RDW Plt Count MCH Lymph % (Auto) Lymph # Lymph # (Auto) Seg Neutrophils % Seg Neuts % (Manual) Lymphocytes % (Manual) Seg Neutrophils # Seg Neutrophils # Man Nucleated RBC % Lymphocytes # (Manual) Monocytes # (Manual) PT INR Heparin Anti-Xa Level POC ABG pO2 ABG pH ABG Hemoglobin ABG Oxyhemoglobin ABG pO2 ABG HCO3 ABG O2 Saturation ABG Base Excess ABG Potassium ABG Chloride ABG Glucose Oxyhemoglobin Sodium Potassium Chloride Carbon Dioxide BUN Creatinine Glucose POC Glucose 56 L 64 L 127 H Lactic Acid Calcium AST Phosphorus Total Protein Albumin C-Reactive Protein Arterial Blood Glucose Arterial Blood Ionized Calcium Urine WBC (Auto) Crossmatch 02/04/20 02/04/20 02/04/20 11:57 13:42 13:53 WBC 19.2 H RBC 2.48 L Hgb 7.8 L Hct 23.5 L MCHC RDW 24.2 H Plt Count MCH Lymph % (Auto) Lymph # Lymph # (Auto) Seg Neutrophils % Seg Neuts % (Manual) 97.0 H Lymphocytes % (Manual) 2.0 L Seg Neutrophils # Seg Neutrophils # Man 18.6 H Nucleated RBC % Lymphocytes # (Manual) 0.4 L Monocytes # (Manual) PT INR Heparin Anti-Xa Level POC ABG pO2 118.2 H ABG pH 7.525 H ABG Hemoglobin 8.7 L ABG Oxyhemoglobin ABG pO2 ABG HCO3 ABG O2 Saturation ABG Base Excess ABG Potassium 2.8 L ABG Chloride ABG Glucose 185 H Oxyhemoglobin Sodium Potassium Chloride Carbon Dioxide BUN Creatinine Glucose POC Glucose 224 H Lactic Acid Calcium AST Phosphorus Total Protein Albumin C-Reactive Protein Arterial Blood Glucose 185 H Arterial Blood Ionized Calcium 4.5 L Urine WBC (Auto) Crossmatch 02/04/20 02/04/20 02/04/20 13:53 18:15 23:35 WBC RBC Hgb Hct MCHC RDW Plt Count MCH Lymph % (Auto) Lymph # Lymph # (Auto) Seg Neutrophils % Seg Neuts % (Manual) Lymphocytes % (Manual) Seg Neutrophils # Seg Neutrophils # Man Nucleated RBC % Lymphocytes # (Manual) Monocytes # (Manual) PT INR Heparin Anti-Xa Level POC ABG pO2 ABG pH ABG Hemoglobin ABG Oxyhemoglobin ABG pO2 ABG HCO3 ABG O2 Saturation ABG Base Excess ABG Potassium ABG Chloride ABG Glucose Oxyhemoglobin Sodium 147 H Potassium 2.8 L* Chloride Carbon Dioxide 38 H BUN 33 H Creatinine 0.5 L Glucose 202 H POC Glucose 215 H 197 H Lactic Acid Calcium AST Phosphorus Total Protein Albumin C-Reactive Protein Arterial Blood Glucose Arterial Blood Ionized Calcium Urine WBC (Auto) Crossmatch 02/05/20 02/05/20 02/05/20 01:03 04:00 04:00 WBC 26.7 H RBC 2.59 L Hgb 8.1 L Hct 24.6 L MCHC RDW 24.1 H Plt Count MCH Lymph % (Auto) 1.6 L Lymph # Lymph # (Auto) 0.4 L Seg Neutrophils % Seg Neuts % (Manual) Lymphocytes % (Manual) Seg Neutrophils # 25.9 H Seg Neutrophils # Man Nucleated RBC % Lymphocytes # (Manual) Monocytes # (Manual) PT INR Heparin Anti-Xa Level POC ABG pO2 ABG pH ABG Hemoglobin 7.1 L ABG Oxyhemoglobin ABG pO2 50.7 L ABG HCO3 29.6 H ABG O2 Saturation 82.7 L ABG Base Excess 4.8 H ABG Potassium ABG Chloride ABG Glucose Oxyhemoglobin 81.0 L Sodium 146 H Potassium Chloride Carbon Dioxide 32 H BUN 35 H Creatinine 0.5 L Glucose 226 H POC Glucose Lactic Acid Calcium AST Phosphorus Total Protein 5.1 L Albumin 2.2 L C-Reactive Protein Arterial Blood Glucose Arterial Blood Ionized Calcium Urine WBC (Auto) Crossmatch 02/05/20 02/05/20 02/06/20 05:32 17:56 00:19 WBC RBC Hgb Hct MCHC RDW Plt Count MCH Lymph % (Auto) Lymph # Lymph # (Auto) Seg Neutrophils % Seg Neuts % (Manual) Lymphocytes % (Manual) Seg Neutrophils # Seg Neutrophils # Man Nucleated RBC % Lymphocytes # (Manual) Monocytes # (Manual) PT INR Heparin Anti-Xa Level POC ABG pO2 ABG pH ABG Hemoglobin ABG Oxyhemoglobin ABG pO2 ABG HCO3 ABG O2 Saturation ABG Base Excess ABG Potassium ABG Chloride ABG Glucose Oxyhemoglobin Sodium Potassium Chloride Carbon Dioxide BUN Creatinine Glucose POC Glucose 239 H 175 H 309 H Lactic Acid Calcium AST Phosphorus Total Protein Albumin C-Reactive Protein Arterial Blood Glucose Arterial Blood Ionized Calcium Urine WBC (Auto) Crossmatch 02/06/20 02/06/20 02/06/20 04:26 04:27 05:11 WBC RBC Hgb Hct MCHC RDW Plt Count MCH Lymph % (Auto) Lymph # Lymph # (Auto) Seg Neutrophils % Seg Neuts % (Manual) Lymphocytes % (Manual) Seg Neutrophils # Seg Neutrophils # Man Nucleated RBC % Lymphocytes # (Manual) Monocytes # (Manual) PT INR Heparin Anti-Xa Level POC ABG pO2 175.3 H 157.2 H ABG pH 7.502 H 7.551 H ABG Hemoglobin 10.8 L 7.3 L ABG Oxyhemoglobin 98.3 H ABG pO2 ABG HCO3 ABG O2 Saturation ABG Base Excess ABG Potassium 3.3 L ABG Chloride 109.0 H ABG Glucose 148 H Oxyhemoglobin Sodium 148 H Potassium 3.0 L Chloride 107.3 H Carbon Dioxide 33 H BUN 33 H Creatinine 0.5 L Glucose 283 H POC Glucose Lactic Acid Calcium 7.9 L AST Phosphorus Total Protein 3.6 L D Albumin 1.2 L C-Reactive Protein Arterial Blood Glucose 148 H Arterial Blood Ionized Calcium Urine WBC (Auto) Crossmatch 02/06/20 02/06/20 02/06/20 05:40 08:45 11:52 WBC 16.3 H RBC 2.12 L Hgb 6.6 L Hct 20.3 L MCHC RDW 24.4 H Plt Count MCH Lymph % (Auto) Lymph # Lymph # (Auto) Seg Neutrophils % Seg Neuts % (Manual) 98.0 H Lymphocytes % (Manual) 1.0 L Seg Neutrophils # Seg Neutrophils # Man 16.0 H Nucleated RBC % Lymphocytes # (Manual) 0.2 L Monocytes # (Manual) PT INR Heparin Anti-Xa Level POC ABG pO2 ABG pH ABG Hemoglobin ABG Oxyhemoglobin ABG pO2 ABG HCO3 ABG O2 Saturation ABG Base Excess ABG Potassium ABG Chloride ABG Glucose Oxyhemoglobin Sodium Potassium Chloride Carbon Dioxide BUN Creatinine Glucose POC Glucose 347 H 132 H Lactic Acid Calcium AST Phosphorus Total Protein Albumin C-Reactive Protein Arterial Blood Glucose Arterial Blood Ionized Calcium Urine WBC (Auto) Crossmatch 02/06/20 02/07/20 02/07/20 18:26 00:08 05:41 WBC RBC Hgb Hct MCHC RDW Plt Count MCH Lymph % (Auto) Lymph # Lymph # (Auto) Seg Neutrophils % Seg Neuts % (Manual) Lymphocytes % (Manual) Seg Neutrophils # Seg Neutrophils # Man Nucleated RBC % Lymphocytes # (Manual) Monocytes # (Manual) PT INR Heparin Anti-Xa Level POC ABG pO2 ABG pH ABG Hemoglobin ABG Oxyhemoglobin ABG pO2 ABG HCO3 ABG O2 Saturation ABG Base Excess ABG Potassium ABG Chloride ABG Glucose Oxyhemoglobin Sodium Potassium Chloride Carbon Dioxide BUN Creatinine Glucose POC Glucose 114 H 111 H 164 H Lactic Acid Calcium AST Phosphorus Total Protein Albumin C-Reactive Protein Arterial Blood Glucose Arterial Blood Ionized Calcium Urine WBC (Auto) Crossmatch 02/07/20 02/07/20 02/07/20 11:49 17:56 23:27 WBC RBC Hgb Hct MCHC RDW Plt Count MCH Lymph % (Auto) Lymph # Lymph # (Auto) Seg Neutrophils % Seg Neuts % (Manual) Lymphocytes % (Manual) Seg Neutrophils # Seg Neutrophils # Man Nucleated RBC % Lymphocytes # (Manual) Monocytes # (Manual) PT INR Heparin Anti-Xa Level POC ABG pO2 ABG pH ABG Hemoglobin ABG Oxyhemoglobin ABG pO2 ABG HCO3 ABG O2 Saturation ABG Base Excess ABG Potassium ABG Chloride ABG Glucose Oxyhemoglobin Sodium Potassium Chloride Carbon Dioxide BUN Creatinine Glucose POC Glucose 146 H 140 H 164 H Lactic Acid Calcium AST Phosphorus Total Protein Albumin C-Reactive Protein Arterial Blood Glucose Arterial Blood Ionized Calcium Urine WBC (Auto) Crossmatch 02/08/20 02/08/20 02/08/20 03:55 04:46 04:46 WBC RBC 2.30 L Hgb 7.3 L Hct 22.0 L MCHC RDW 23.9 H Plt Count MCH Lymph % (Auto) 8.5 L Lymph # Lymph # (Auto) 0.8 L Seg Neutrophils % 87.6 H Seg Neuts % (Manual) Lymphocytes % (Manual) Seg Neutrophils # 8.7 H Seg Neutrophils # Man Nucleated RBC % Lymphocytes # (Manual) Monocytes # (Manual) PT INR Heparin Anti-Xa Level POC ABG pO2 112.8 H ABG pH 7.511 H ABG Hemoglobin 7.8 L ABG Oxyhemoglobin ABG pO2 ABG HCO3 ABG O2 Saturation ABG Base Excess ABG Potassium 2.9 L ABG Chloride ABG Glucose 112 H Oxyhemoglobin Sodium Potassium 3.1 L Chloride Carbon Dioxide 31 H BUN 29 H Creatinine 0.3 L Glucose 108 H POC Glucose Lactic Acid Calcium AST Phosphorus Total Protein Albumin C-Reactive Protein Arterial Blood Glucose 112 H Arterial Blood Ionized Calcium Urine WBC (Auto) Crossmatch 02/08/20 02/08/20 02/08/20 05:31 10:15 12:10 WBC RBC Hgb Hct MCHC RDW Plt Count MCH Lymph % (Auto) Lymph # Lymph # (Auto) Seg Neutrophils % Seg Neuts % (Manual) Lymphocytes % (Manual) Seg Neutrophils # Seg Neutrophils # Man Nucleated RBC % Lymphocytes # (Manual) Monocytes # (Manual) PT INR Heparin Anti-Xa Level POC ABG pO2 ABG pH ABG Hemoglobin ABG Oxyhemoglobin ABG pO2 ABG HCO3 ABG O2 Saturation ABG Base Excess ABG Potassium ABG Chloride ABG Glucose Oxyhemoglobin Sodium Potassium Chloride Carbon Dioxide BUN Creatinine Glucose POC Glucose 117 H 164 H 170 H Lactic Acid Calcium AST Phosphorus Total Protein Albumin C-Reactive Protein Arterial Blood Glucose Arterial Blood Ionized Calcium Urine WBC (Auto) Crossmatch 02/08/20 02/08/20 02/09/20 12:23 23:50 03:04 WBC RBC Hgb Hct MCHC RDW Plt Count MCH Lymph % (Auto) Lymph # Lymph # (Auto) Seg Neutrophils % Seg Neuts % (Manual) Lymphocytes % (Manual) Seg Neutrophils # Seg Neutrophils # Man Nucleated RBC % Lymphocytes # (Manual) Monocytes # (Manual) PT INR Heparin Anti-Xa Level POC ABG pO2 ABG pH 7.501 H ABG Hemoglobin 7.5 L ABG Oxyhemoglobin ABG pO2 ABG HCO3 ABG O2 Saturation ABG Base Excess ABG Potassium ABG Chloride ABG Glucose 143 H Oxyhemoglobin Sodium Potassium Chloride Carbon Dioxide BUN Creatinine Glucose POC Glucose 164 H 126 H Lactic Acid Calcium AST Phosphorus Total Protein Albumin C-Reactive Protein Arterial Blood Glucose 143 H Arterial Blood Ionized Calcium Urine WBC (Auto) Crossmatch 02/09/20 02/09/20 02/09/20 05:57 08:00 12:39 WBC RBC Hgb Hct MCHC RDW Plt Count MCH Lymph % (Auto) Lymph # Lymph # (Auto) Seg Neutrophils % Seg Neuts % (Manual) Lymphocytes % (Manual) Seg Neutrophils # Seg Neutrophils # Man Nucleated RBC % Lymphocytes # (Manual) Monocytes # (Manual) PT INR Heparin Anti-Xa Level POC ABG pO2 ABG pH ABG Hemoglobin ABG Oxyhemoglobin ABG pO2 ABG HCO3 ABG O2 Saturation ABG Base Excess ABG Potassium ABG Chloride ABG Glucose Oxyhemoglobin Sodium Potassium 3.3 L Chloride Carbon Dioxide 34 H BUN 27 H Creatinine 0.4 L Glucose 127 H POC Glucose 160 H 154 H Lactic Acid Calcium 8.2 L AST Phosphorus Total Protein Albumin C-Reactive Protein Arterial Blood Glucose Arterial Blood Ionized Calcium Urine WBC (Auto) Crossmatch 02/09/20 02/09/20 02/09/20 18:17 23:43 Unknown WBC RBC 2.15 L Hgb 7.0 L Hct 20.8 L MCHC RDW 23.3 H Plt Count MCH 33 H Lymph % (Auto) Lymph # Lymph # (Auto) Seg Neutrophils % Seg Neuts % (Manual) Lymphocytes % (Manual) Seg Neutrophils # Seg Neutrophils # Man Nucleated RBC % Lymphocytes # (Manual) Monocytes # (Manual) PT INR Heparin Anti-Xa Level POC ABG pO2 ABG pH ABG Hemoglobin ABG Oxyhemoglobin ABG pO2 ABG HCO3 ABG O2 Saturation ABG Base Excess ABG Potassium ABG Chloride ABG Glucose Oxyhemoglobin Sodium Potassium Chloride Carbon Dioxide BUN Creatinine Glucose POC Glucose 152 H 177 H Lactic Acid Calcium AST Phosphorus Total Protein Albumin C-Reactive Protein Arterial Blood Glucose Arterial Blood Ionized Calcium Urine WBC (Auto) Crossmatch 02/10/20 02/10/20 02/10/20 04:38 05:24 11:44 WBC RBC Hgb Hct MCHC RDW Plt Count MCH Lymph % (Auto) Lymph # Lymph # (Auto) Seg Neutrophils % Seg Neuts % (Manual) Lymphocytes % (Manual) Seg Neutrophils # Seg Neutrophils # Man Nucleated RBC % Lymphocytes # (Manual) Monocytes # (Manual) PT INR Heparin Anti-Xa Level POC ABG pO2 ABG pH 7.502 H ABG Hemoglobin 6.2 L ABG Oxyhemoglobin ABG pO2 136.0 H ABG HCO3 29.3 H ABG O2 Saturation ABG Base Excess 5.7 H ABG Potassium ABG Chloride ABG Glucose Oxyhemoglobin Sodium Potassium Chloride Carbon Dioxide BUN Creatinine Glucose POC Glucose 113 H 176 H Lactic Acid Calcium AST Phosphorus Total Protein Albumin C-Reactive Protein Arterial Blood Glucose Arterial Blood Ionized Calcium Urine WBC (Auto) Crossmatch 02/10/20 02/11/20 02/11/20 23:42 03:43 04:12 WBC RBC 2.12 L Hgb 6.9 L Hct 20.6 L MCHC RDW 23.4 H Plt Count MCH 33 H Lymph % (Auto) Lymph # Lymph # (Auto) Seg Neutrophils % 84.7 H Seg Neuts % (Manual) 83.0 H Lymphocytes % (Manual) 11.0 L Seg Neutrophils # Seg Neutrophils # Man Nucleated RBC % Lymphocytes # (Manual) 1.0 L Monocytes # (Manual) PT INR Heparin Anti-Xa Level POC ABG pO2 112.6 H ABG pH 7.480 H ABG Hemoglobin 7.2 L ABG Oxyhemoglobin ABG pO2 ABG HCO3 ABG O2 Saturation ABG Base Excess ABG Potassium ABG Chloride ABG Glucose 154 H Oxyhemoglobin Sodium Potassium Chloride Carbon Dioxide BUN Creatinine Glucose POC Glucose 149 H Lactic Acid Calcium AST Phosphorus Total Protein Albumin C-Reactive Protein Arterial Blood Glucose 154 H Arterial Blood Ionized Calcium Urine WBC (Auto) Crossmatch 02/11/20 02/11/20 02/11/20 04:12 05:50 08:22 WBC RBC Hgb Hct MCHC RDW Plt Count MCH Lymph % (Auto) Lymph # Lymph # (Auto) Seg Neutrophils % Seg Neuts % (Manual) Lymphocytes % (Manual) Seg Neutrophils # Seg Neutrophils # Man Nucleated RBC % Lymphocytes # (Manual) Monocytes # (Manual) PT INR Heparin Anti-Xa Level POC ABG pO2 ABG pH ABG Hemoglobin ABG Oxyhemoglobin ABG pO2 ABG HCO3 ABG O2 Saturation ABG Base Excess ABG Potassium ABG Chloride ABG Glucose Oxyhemoglobin Sodium 146 H Potassium Chloride Carbon Dioxide BUN 24 H Creatinine 0.4 L Glucose 168 H POC Glucose 190 H Lactic Acid Calcium 8.0 L AST Phosphorus Total Protein Albumin C-Reactive Protein Arterial Blood Glucose Arterial Blood Ionized Calcium Urine WBC (Auto) Crossmatch See Detail 02/11/20 02/11/20 02/11/20 11:41 17:33 23:40 WBC RBC Hgb Hct MCHC RDW Plt Count MCH Lymph % (Auto) Lymph # Lymph # (Auto) Seg Neutrophils % Seg Neuts % (Manual) Lymphocytes % (Manual) Seg Neutrophils # Seg Neutrophils # Man Nucleated RBC % Lymphocytes # (Manual) Monocytes # (Manual) PT INR Heparin Anti-Xa Level POC ABG pO2 ABG pH ABG Hemoglobin ABG Oxyhemoglobin ABG pO2 ABG HCO3 ABG O2 Saturation ABG Base Excess ABG Potassium ABG Chloride ABG Glucose Oxyhemoglobin Sodium Potassium Chloride Carbon Dioxide BUN Creatinine Glucose POC Glucose 260 H 132 H 54 L Lactic Acid Calcium AST Phosphorus Total Protein Albumin C-Reactive Protein Arterial Blood Glucose Arterial Blood Ionized Calcium Urine WBC (Auto) Crossmatch 02/12/20 02/12/20 02/12/20 05:16 06:45 11:48 WBC RBC Hgb 8.6 L Hct 25.2 L MCHC RDW Plt Count MCH Lymph % (Auto) Lymph # Lymph # (Auto) Seg Neutrophils % Seg Neuts % (Manual) Lymphocytes % (Manual) Seg Neutrophils # Seg Neutrophils # Man Nucleated RBC % Lymphocytes # (Manual) Monocytes # (Manual) PT INR Heparin Anti-Xa Level POC ABG pO2 ABG pH ABG Hemoglobin ABG Oxyhemoglobin ABG pO2 ABG HCO3 ABG O2 Saturation ABG Base Excess ABG Potassium ABG Chloride ABG Glucose Oxyhemoglobin Sodium Potassium Chloride Carbon Dioxide BUN Creatinine Glucose POC Glucose 127 H 163 H Lactic Acid Calcium AST Phosphorus Total Protein Albumin C-Reactive Protein Arterial Blood Glucose Arterial Blood Ionized Calcium Urine WBC (Auto) Crossmatch 02/12/20 02/12/20 02/13/20 17:25 23:53 04:30 WBC RBC Hgb Hct MCHC RDW Plt Count MCH Lymph % (Auto) Lymph # Lymph # (Auto) Seg Neutrophils % Seg Neuts % (Manual) Lymphocytes % (Manual) Seg Neutrophils # Seg Neutrophils # Man Nucleated RBC % Lymphocytes # (Manual) Monocytes # (Manual) PT INR Heparin Anti-Xa Level POC ABG pO2 ABG pH 7.463 H ABG Hemoglobin ABG Oxyhemoglobin ABG pO2 98.4 H ABG HCO3 27.7 H ABG O2 Saturation ABG Base Excess 3.7 H ABG Potassium ABG Chloride ABG Glucose Oxyhemoglobin Sodium Potassium Chloride Carbon Dioxide BUN Creatinine Glucose POC Glucose 152 H 140 H Lactic Acid Calcium AST Phosphorus Total Protein Albumin C-Reactive Protein Arterial Blood Glucose Arterial Blood Ionized Calcium Urine WBC (Auto) Crossmatch 02/13/20 02/13/20 02/13/20 04:45 04:45 05:19 WBC RBC 2.73 L Hgb 8.7 L Hct 25.6 L MCHC RDW 21.3 H Plt Count MCH Lymph % (Auto) 12.0 L Lymph # Lymph # (Auto) 1.0 L Seg Neutrophils % 82.5 H Seg Neuts % (Manual) Lymphocytes % (Manual) Seg Neutrophils # Seg Neutrophils # Man Nucleated RBC % Lymphocytes # (Manual) Monocytes # (Manual) PT INR Heparin Anti-Xa Level POC ABG pO2 ABG pH ABG Hemoglobin ABG Oxyhemoglobin ABG pO2 ABG HCO3 ABG O2 Saturation ABG Base Excess ABG Potassium ABG Chloride ABG Glucose Oxyhemoglobin Sodium Potassium 3.4 L Chloride Carbon Dioxide 31 H BUN 24 H Creatinine 0.3 L Glucose 122 H POC Glucose 127 H Lactic Acid Calcium 8.0 L AST Phosphorus Total Protein 4.2 L Albumin 2.0 L C-Reactive Protein Arterial Blood Glucose Arterial Blood Ionized Calcium Urine WBC (Auto) Crossmatch 02/13/20 02/14/20 02/14/20 23:08 04:26 04:26 WBC RBC 2.74 L Hgb 8.7 L Hct 25.8 L MCHC RDW 21.3 H Plt Count MCH Lymph % (Auto) 13.2 L Lymph # Lymph # (Auto) Seg Neutrophils % 81.4 H Seg Neuts % (Manual) Lymphocytes % (Manual) Seg Neutrophils # 8.4 H Seg Neutrophils # Man Nucleated RBC % Lymphocytes # (Manual) Monocytes # (Manual) PT INR Heparin Anti-Xa Level POC ABG pO2 ABG pH ABG Hemoglobin ABG Oxyhemoglobin ABG pO2 ABG HCO3 ABG O2 Saturation ABG Base Excess ABG Potassium ABG Chloride ABG Glucose Oxyhemoglobin Sodium Potassium 3.4 L Chloride 107.6 H Carbon Dioxide BUN 20 H Creatinine 0.3 L Glucose 170 H POC Glucose 148 H Lactic Acid Calcium 8.2 L AST Phosphorus Total Protein Albumin C-Reactive Protein Arterial Blood Glucose Arterial Blood Ionized Calcium Urine WBC (Auto) Crossmatch 02/14/20 02/14/20 02/14/20 05:05 12:08 17:37 WBC RBC Hgb Hct MCHC RDW Plt Count MCH Lymph % (Auto) Lymph # Lymph # (Auto) Seg Neutrophils % Seg Neuts % (Manual) Lymphocytes % (Manual) Seg Neutrophils # Seg Neutrophils # Man Nucleated RBC % Lymphocytes # (Manual) Monocytes # (Manual) PT INR Heparin Anti-Xa Level POC ABG pO2 ABG pH ABG Hemoglobin ABG Oxyhemoglobin ABG pO2 ABG HCO3 ABG O2 Saturation ABG Base Excess ABG Potassium ABG Chloride ABG Glucose Oxyhemoglobin Sodium Potassium Chloride Carbon Dioxide BUN Creatinine Glucose POC Glucose 182 H 156 H 144 H Lactic Acid Calcium AST Phosphorus Total Protein Albumin C-Reactive Protein Arterial Blood Glucose Arterial Blood Ionized Calcium Urine WBC (Auto) Crossmatch 02/14/20 02/15/20 02/15/20 23:36 05:44 12:11 WBC RBC Hgb Hct MCHC RDW Plt Count MCH Lymph % (Auto) Lymph # Lymph # (Auto) Seg Neutrophils % Seg Neuts % (Manual) Lymphocytes % (Manual) Seg Neutrophils # Seg Neutrophils # Man Nucleated RBC % Lymphocytes # (Manual) Monocytes # (Manual) PT INR Heparin Anti-Xa Level POC ABG pO2 ABG pH ABG Hemoglobin ABG Oxyhemoglobin ABG pO2 ABG HCO3 ABG O2 Saturation ABG Base Excess ABG Potassium ABG Chloride ABG Glucose Oxyhemoglobin Sodium Potassium Chloride Carbon Dioxide BUN Creatinine Glucose POC Glucose 183 H 203 H 140 H Lactic Acid Calcium AST Phosphorus Total Protein Albumin C-Reactive Protein Arterial Blood Glucose Arterial Blood Ionized Calcium Urine WBC (Auto) Crossmatch 02/15/20 02/16/20 02/16/20 17:23 00:12 05:09 WBC RBC Hgb 8.8 L Hct 26.0 L MCHC RDW Plt Count MCH Lymph % (Auto) Lymph # Lymph # (Auto) Seg Neutrophils % Seg Neuts % (Manual) Lymphocytes % (Manual) Seg Neutrophils # Seg Neutrophils # Man Nucleated RBC % Lymphocytes # (Manual) Monocytes # (Manual) PT INR Heparin Anti-Xa Level POC ABG pO2 ABG pH ABG Hemoglobin ABG Oxyhemoglobin ABG pO2 ABG HCO3 ABG O2 Saturation ABG Base Excess ABG Potassium ABG Chloride ABG Glucose Oxyhemoglobin Sodium Potassium Chloride Carbon Dioxide BUN Creatinine Glucose POC Glucose 170 H 133 H Lactic Acid Calcium AST Phosphorus Total Protein Albumin C-Reactive Protein Arterial Blood Glucose Arterial Blood Ionized Calcium Urine WBC (Auto) Crossmatch 02/16/20 02/16/20 02/16/20 05:09 05:21 12:22 WBC RBC Hgb Hct MCHC RDW Plt Count MCH Lymph % (Auto) Lymph # Lymph # (Auto) Seg Neutrophils % Seg Neuts % (Manual) Lymphocytes % (Manual) Seg Neutrophils # Seg Neutrophils # Man Nucleated RBC % Lymphocytes # (Manual) Monocytes # (Manual) PT INR Heparin Anti-Xa Level POC ABG pO2 ABG pH ABG Hemoglobin ABG Oxyhemoglobin ABG pO2 ABG HCO3 ABG O2 Saturation ABG Base Excess ABG Potassium ABG Chloride ABG Glucose Oxyhemoglobin Sodium Potassium Chloride Carbon Dioxide 31 H BUN 18 H Creatinine 0.3 L Glucose 152 H POC Glucose 160 H 138 H Lactic Acid Calcium 7.9 L AST Phosphorus Total Protein Albumin C-Reactive Protein Arterial Blood Glucose Arterial Blood Ionized Calcium Urine WBC (Auto) Crossmatch Allied health notes reviewed: RT
[2020-02-16] MEDS: MIRTAZAPINE 15 MG TAB PO SCH (21:01)
[2020-02-16] MEDS: DONEPEZIL 10 MG TAB PO SCH (21:01)
[2020-02-16] MEDS: traZODone 50 MG TAB PO SCH (22:01)
[2020-02-17] MEDS: INSULIN REGULAR, HUMAN 100 UNIT/ML 3ML VIAL SUB-Q SCH ×4 (00:27→18:43)
[2020-02-17] MEDS: PIPERACIL/TAZOBACTA 4.5/NS 100 4.5 GM/100 ML VIAL IV SCH ×3 (05:15→21:09)
--- NOTE | 2020-02-17 08:29 | Progress Note ---
Assessment and Plan Assessment and plan: --Right upper extremity massive edema: Patient's IV line removed RtUE venous Doppler no DVT, superficial venous thrombosis Supportive care, elevate the limb --s/p PEA arrest night of 01/28/2020 and 02/05/2020 s/p CPR per ACLS protocol --Anoxic/hypoxic brain injury[status post PEA cardiac arrest]; supportive care Poor prognosis --Acute hypoxic respiratory failure; s/p tracheostomy,02/13/2020 per surgery, trach care, ventilatory support status post extubation 02/02/2020 but had to be reintubated on 02/04 --Shock/ septic shock; s/p Levophed,Closely monitor --Unstageable sacral decubitus ulcer, infected/POA s/p wound debridement on 01/15. Continue wound vac , Proteus bacteremia On zosyn 4.5 g IV q8h total 6 weeks per ID stop date 02/27/2020 --Sepsis /Proteus bacteremia: Due to sacral decubitus Long-term Zosyn per ID stop date 02/27/2020[total 6 weeks] --Hypokalemia; resolved -- Hypernatremia; resolved --Anemia ; received 1 unit PRBC, now Hb 8.8 -- Diabetes mellitus; Blood sugars well controlled, A1c 5.3 Accu-Chek,SSC, long-acting insulin as needed Tube feeding diet -- Hydropneumothorax, not POA Patient developed hydropneumothorax on 01/15. Surgery evaluated s/p chest tube placed on 01/15. Improved, s/p chest tube removed 01/22, extubated 02/02/2020 Reintubated 02/05/2020 , tracheostomy 02/13/2020 -- large Left pleural effusion 01/25 01/27; s/p bronchoscopy and Therapeutic suctioning of the lungs done by pig machine operator helper -- UTI (urinary tract infection)Completed antibiotics --h/o Bilateral pulmonary embolism 7 months ago Repeat CTA chest and LE doppler showed no acute PE or DVT, eliquis stopped -- Dementia: Continue donepezil --Severe protein-calorie malnutrition PEG placed 01/13. PEG feeds per protocol --DVT prophylaxis; SCDs --Disposition; possible LTAC placement Closely monitor the patient and adjust management as needed Plan of care reviewed with the patient and her nurse The high probability of a clinically significant, sudden or life threatening deterioration of the [Respiratory, MANAGEMENT LECTURER, CVs] system(s) required my full and direct attention, intervention and personal management. The aggregate critical care time was [31] minutes. This time is in addition to time spent performing reported procedures but includes the following: [x] Data Review and interpretation [x] Patient assessment and monitoring of vital signs [x] Documentation [x] Medication orders and management . Patient currently with PSV/CPAP FiO2 50%, PEEP of 6 and pressure support of 10. Continue PSV trials as tolerated and wean per pulmonary. Recall ID consultation. 02/08/2020. Patient with Proteus bacteremia likely from sacral decubitus. Continue Zosyn 4.5 g IV every 8 hours until stop date of 02/26. Patient still on mechanical ventilation AC mode rate 12, tidal volume 350, FiO2 30% and PEEP of 6. Poor prognosis. Consider hospice. Continue scopolamine for secretion control. Continue pressors to maintain MAP > 65; currently off. 02/09/2020. Continue Zosyn 4.5 g IV every 8 hours for Proteus bacteremia with end date of 02/27/2020. Continue wound care/wound VAC per surgery. Patient still on mechanical ventilation AC mode rate 12, tidal volume 350, FiO2 30% and PEEP of 6. Poor prognosis. Consider hospice. Continue scopolamine for secretion control. Currently off pressors. 02/09; evaluated by surgery, planning tracheostomy pending COVID test 02/10; possible tracheostomy today pending COVID test, surgery following 02/11; patient n.p.o. from midnight, possible tracheostomy tomorrow Received 1 unit of PRBC, Hb improved to 8.6 02/12; scheduled for tracheostomy today 02/13; trach care, bilateral upper extremity L edema and swelling, check venous Doppler 02/14; right upper extremity swelling edema, DC the line, elevate the limb 02/15;RUE venous Doppler no DVT, superficial thrombophlebitis, elevate the limb and supportive care 02/16; pending LTAC/SNF placement History Interval history: I have seen and examined the patient at the bedside this morning in ICU Patient's chart and current medications reviewed Patient status post trach and PEG Awaiting placement Vital signs noted Hospitalist Physical - Constitutional Vitals: Temp Pulse Resp BP Pulse Ox 98.8 F 109 H 25 H 134/61 100 02/17/20 03:32 02/17/20 08:00 02/17/20 08:00 02/17/20 08:00 02/17/20 08:00 General appearance: Present: no acute distress, well-nourished, other (Tracheostomy on vent) - EENT Eyes: Present: PERRL, EOM intact ENT: other (Tracheostomy in place) - Neck Neck: Present: supple, normal ROM - Respiratory Respiratory effort: normal Respiratory: bilateral: diminished, rhonchi, negative: rales, wheezing - Extremities Extremity abnormal: edema, other (Contracted) - Abdominal General gastrointestinal: soft, non-tender, non-distended, normal bowel sounds, other (PEG in place) - Integumentary Integumentary: Present: clear, warm - Psychiatric Psychiatric: other (Noncommunicative) - Neurologic Neurologic: other (Noncommunicative on vent) Results - Labs CBC & Chem 7: 02/16/20 05:09 02/16/20 05:09 Labs: Laboratory Last Values WBC 10.4 K/mm3 (4.5-11.0) 02/14/20 04:26 RBC 2.74 M/mm3 (3.65-5.03) L 02/14/20 04:26 Hgb 8.8 gm/dl (10.1-14.3) L 02/16/20 05:09 Hct 26.0 % (30.3-42.9) L 02/16/20 05:09 MCV 94 fl (79-97) 02/14/20 04:26 MCH 32 pg (28-32) 02/14/20 04:26 MCHC 34 % (30-34) 02/14/20 04:26 RDW 21.3 % (13.2-15.2) H 02/14/20 04:26 Plt Count 389 K/mm3 (140-440) 02/14/20 04:26 Lymph % (Auto) 13.2 % (13.4-35.0) L 02/14/20 04:26 [place] % (Auto) 3.6 % (0.0-7.3) 02/14/20 04:26 Eos % (Auto) 1.0 % (0.0-4.3) 02/14/20 04:26 Baso % (Auto) 0.8 % (0.0-1.8) 02/14/20 04:26 Lymph # (Auto) 1.4 K/mm3 (1.2-5.4) 02/14/20 04:26 [place] # (Auto) 0.4 K/mm3 (0.0-0.8) 02/14/20 04:26 Eos # (Auto) 0.1 K/mm3 (0.0-0.4) 02/14/20 04:26 Baso # (Auto) 0.1 K/mm3 (0.0-0.1) 02/14/20 04:26 Add Manual Diff Complete 02/11/20 04:12 Total Counted 100 02/11/20 04:12 Seg Neutrophils % 81.4 % (40.0-70.0) H 02/14/20 04:26 Seg Neuts % (Manual) 83.0 % (40.0-70.0) H 02/11/20 04:12 Band Neutrophils % 0 % 02/11/20 04:12 Lymphocytes % (Manual) 11.0 % (13.4-35.0) L 02/11/20 04:12 Reactive Lymphs % (Man) 0 % 02/11/20 04:12 Monocytes % (Manual) 5.0 % (0.0-7.3) 02/11/20 04:12 Eosinophils % (Manual) 1.0 % (0.0-4.3) 02/11/20 04:12 Basophils % (Manual) 0 % (0.0-1.8) 02/11/20 04:12 Metamyelocytes % 0 % 02/11/20 04:12 Myelocytes % 0 % 02/11/20 04:12 Promyelocytes % 0 % 02/11/20 04:12 Blast Cells % 0 % 02/11/20 04:12 Nucleated RBC % Not Reportable 02/11/20 04:12 Seg Neutrophils # 8.4 K/mm3 (1.8-7.7) H 02/14/20 04:26 Seg Neutrophils # Man 7.6 K/mm3 (1.8-7.7) 02/11/20 04:12 Band Neutrophils # 0.0 K/mm3 02/11/20 04:12 Lymphocytes # (Manual) 1.0 K/mm3 (1.2-5.4) L 02/11/20 04:12 Abs React Lymphs (Man) 0.0 K/mm3 02/11/20 04:12 Monocytes # (Manual) 0.5 K/mm3 (0.0-0.8) 02/11/20 04:12 Eosinophils # (Manual) 0.1 K/mm3 (0.0-0.4) 02/11/20 04:12 Basophils # (Manual) 0.0 K/mm3 (0.0-0.1) 02/11/20 04:12 Metamyelocytes # 0.0 K/mm3 02/11/20 04:12 Myelocytes # 0.0 K/mm3 02/11/20 04:12 Promyelocytes # 0.0 K/mm3 02/11/20 04:12 Blast Cells # 0.0 K/mm3 02/11/20 04:12 WBC Morphology Not Reportable 02/11/20 04:12 Hypersegmented Neuts Not Reportable 02/11/20 04:12 Hyposegmented Neuts Not Reportable 02/11/20 04:12 Hypogranular Neuts Not Reportable 02/11/20 04:12 Smudge Cells Not Reportable 02/11/20 04:12 Toxic Granulation Not Reportable 02/11/20 04:12 Toxic Vacuolation Not Reportable 02/11/20 04:12 Dohle Bodies Not Reportable 02/11/20 04:12 Pelger-Huet Anomaly Not Reportable 02/11/20 04:12 Lata Rods Not Reportable 02/11/20 04:12 Platelet Estimate Consistent w auto 02/11/20 04:12 Clumped Platelets Not Reportable 02/11/20 04:12 Plt Clumps, EDTA Not Reportable 02/11/20 04:12 Large Platelets Not Reportable 02/11/20 04:12 Giant Platelets Not Reportable 02/11/20 04:12 Platelet Satelliting Not Reportable 02/11/20 04:12 Plt Morphology Comment Not Reportable 02/11/20 04:12 RBC Morphology Not Reportable 02/11/20 04:12 Dimorphic RBCs Not Reportable 02/11/20 04:12 Polychromasia Not Reportable 02/11/20 04:12 Hypochromasia Not Reportable 02/11/20 04:12 Poikilocytosis Not Reportable 02/11/20 04:12 Anisocytosis 2+ 02/11/20 04:12 Microcytosis Not Reportable 02/11/20 04:12 Macrocytosis Few 02/11/20 04:12 Spherocytes Not Reportable 02/11/20 04:12 Pappenheimer Bodies Not Reportable 02/11/20 04:12 Sickle Cells Not Reportable 02/11/20 04:12 Target Cells Few 02/11/20 04:12 Tear Drop Cells Not Reportable 02/11/20 04:12 Ovalocytes Not Reportable 02/11/20 04:12 Helmet Cells Not Reportable 02/11/20 04:[address] [place] Bodies Not Reportable 02/11/20 04:12 Straughn Rings Not Reportable 02/11/20 04:12 Leonidas Cells Not Reportable 02/11/20 04:12 Bite Cells Not Reportable 02/11/20 04:12 Crenated Cell Not Reportable 02/11/20 04:12 Elliptocytes Not Reportable 02/11/20 04:12 Acanthocytes (Spur) Not Reportable 02/11/20 04:12 Rouleaux Not Reportable 02/11/20 04:12 Hemoglobin C Crystals Not Reportable 02/11/20 04:12 Schistocytes Not Reportable 02/11/20 04:12 Malaria parasites Not Reportable 02/11/20 04:12 Gideon Bodies Not Reportable 02/11/20 04:12 Hem Pathologist Commnt No 02/11/20 04:12 APTT 33.9 Sec. (24.2-36.6) 01/26/20 16:30 PT 14.4 Sec. (12.2-14.9) 02/02/20 05:25 INR 1.11 (0.87-1.13) 02/02/20 05:25 Heparin Anti-Xa Level 0.74 U.I./ml (0.3-0.7) H 01/28/20 08:50 ABG pH 7.463 pH Units (7.350-7.450) H 02/13/20 04:30 POC ABG pCO2 38.5 mmHg (32.0-48.0) 02/11/20 03:43 ABG pCO2 39.6 mm Hg 02/13/20 04:30 POC ABG pO2 112.6 mmHg (83-108) H 02/11/20 03:43 ABG pO2 98.4 mm Hg (80.0-90.0) H 02/13/20 04:30 POC ABG HCO3 28 02/11/20 03:43 ABG HCO3 27.7 mmol/L (20.0-26.0) H 02/13/20 04:30 ABG O2 Saturation 97.7 % (95.0-99.0) 02/13/20 04:30 ABG O2 Content 19.3 (0.0-44) 02/13/20 04:30 POC ABG Base Excess 4.2 02/11/20 03:43 ABG Base Excess 3.7 mmol/L (-2.0-3.0) H 02/13/20 04:30 ABG Hemoglobin 14.4 gm/dl (12.0-16.0) 02/13/20 04:30 ABG Oxyhemoglobin 96.7 (94-98) 02/09/20 03:04 ABG Carboxyhemoglobin 1.8 % (0.0-5.0) 02/13/20 04:30 ABG Methemoglobin 0.6 % (0.0-1.5) 02/13/20 04:30 ABG Sodium 138.5 mmol/L (136.0-145.0) 02/11/20 03:43 ABG Potassium 3.4 mmol/L (3.40-4.50) 02/11/20 03:43 ABG Chloride 107.0 mmol/L (98-107) 02/11/20 03:43 ABG Glucose 154 mg/dL (65-95) H 02/11/20 03:43 Oxyhemoglobin 95.3 % (95.0-99.0) 02/13/20 04:30 Carboxyhemoglobin TNR 02/08/20 03:55 FiO2 25 % 02/13/20 04:30 Sodium 142 mmol/L (137-145) 02/16/20 05:09 Potassium 3.6 mmol/L (3.6-5.0) 02/16/20 05:09 Chloride 105.6 mmol/L (98-107) 02/16/20 05:09 Carbon Dioxide 31 mmol/L (22-30) H 02/16/20 05:09 Anion Gap 9 mmol/L 02/16/20 05:09 BUN 18 mg/dL (7-17) H 02/16/20 05:09 Creatinine 0.3 mg/dL (0.6-1.2) L 02/16/20 05:09 Estimated GFR > 60 ml/min 02/16/20 05:09 BUN/Creatinine Ratio 60 % 02/16/20 05:09 Glucose 152 mg/dL (65-100) H 02/16/20 05:09 POC Glucose 126 (70-105) H 02/17/20 05:22 Hemoglobin A1c 5.3 % (4-6) 01/11/20 00:45 Lactic Acid 1.30 mmol/L (0.7-2.0) 01/26/20 23:27 Calcium 7.9 mg/dL (8.4-10.2) L 02/16/20 05:09 Phosphorus 2.30 mg/dL (2.5-4.5) L 02/03/20 05:14 Magnesium 2.00 mg/dL (1.7-2.3) 02/16/20 05:09 Total Bilirubin 0.20 mg/dL (0.1-1.2) 02/13/20 04:45 AST 29 units/L (5-40) 02/13/20 04:45 ALT 38 units/L (7-56) 02/13/20 04:45 Alkaline Phosphatase 109 units/L (35-129) 02/13/20 04:45 C-Reactive Protein 14.80 mg/dL (0.00-1.30) H 01/29/20 Unknown Total Protein 4.2 g/dL (6.3-8.2) L 02/13/20 04:45 Albumin 2.0 g/dL (3.9-5) L 02/13/20 04:45 Albumin/Globulin Ratio 0.9 % 02/13/20 04:45 TSH 2.440 mlU/mL (0.270-4.200) 01/10/20 10:10 Procalcitonin 1.86 ng/mL (<0.15) 01/29/20 Unknown Arterial Blood Glucose 154 mg/dL (65-95) H 02/11/20 03:43 Arterial Blood Ionized Calcium 4.6 mg/dL (4.6-5.3) 02/11/20 03:43 Urine Color [place] (Yellow) 01/08/20 Unknown Urine Turbidity Cloudy (Clear) 01/08/20 Unknown Urine pH 5.0 (5.0-7.0) 01/08/20 Unknown Ur Specific [place] 1.018 (1.003-1.030) 01/08/20 Unknown Urine Protein 30 mg/dl mg/dL (Negative) 01/08/20 Unknown Urine Glucose (UA) Neg mg/dL (Negative) 01/08/20 Unknown Urine Ketones Neg mg/dL (Negative) 01/08/20 Unknown Urine Blood Mod (Negative) 01/08/20 Unknown Urine Nitrite Neg (Negative) 01/08/20 Unknown Urine Bilirubin Neg (Negative) 01/08/20 Unknown Urine Urobilinogen < 2.0 mg/dL (<2.0) 01/08/20 Unknown Ur Leukocyte Esterase Sm (Negative) 01/08/20 Unknown Urine WBC (Auto) 11.0 /HPF (0.0-6.0) H 01/08/20 Unknown Urine RBC (Auto) 7.0 /HPF (0.0-6.0) 01/08/20 Unknown U Epithel Cells (Auto) < 1.0 /HPF (0-13.0) 01/08/20 Unknown Urine Bacteria (Auto) 1+ /HPF (Negative) 01/08/20 Unknown Urine Mucus 2+ /HPF 01/08/20 Unknown Urine Yeast (Budding) 1+ /HPF 01/08/20 Unknown Vancomycin Trough 7.9 ug/mL (5.0-20.0) 01/17/20 16:04 Coronavirus (PCR) Negative (Negative) 02/10/20 10:06 Blood Type A POSITIVE 02/11/20 08:22 Antibody Screen Negative 02/11/20 08:22 Crossmatch See Detail 02/11/20 08:22 Mejía/IV: Voiding Method Indwelling Catheter IV Catheter Type [Left Wrist] INT / Saline Lock IV Catheter Type [Left Upper PICC Line arm] IV Catheter Type [Right Upper Mid-line arm] IV Catheter Type [Right Peripheral IV Forearm] Active Medications - Current Medications Current Medications: Generic Name Dose Route Start Last Admin Trade Name Freq PRN Reason Stop Dose Admin Acetaminophen 650 mg 01/08/20 23:14 01/18/20 06:03 Tylenol PO 650 mg Q4H PRN Administration Pain MILD(1-3)/Fever >100.5/GARCIA Lipase/Protease/Amylase 1 each 01/17/20 08:37 Pancrejason Sommers 10,500 Unit FEEDTUBE PRN PRN For Clogged Feeding Tube Atorvastatin Calcium 10 mg 01/09/20 22:00 02/16/20 22:02 Atorvastatin PO 10 mg QHS BRO Administration Dextrose 0 ml 01/08/20 23:14 02/10/20 17:18 D50w (25gm) Syringe IV 10 ml Q30MIN PRN Administration Hypoglycemia Protocol Donepezil HCl 10 mg 01/09/20 22:00 02/16/20 21:01 Aricept PO 10 mg QHS BRO Administration Famotidine 20 mg 01/27/20 10:00 02/16/20 21:01 Pepcid PO 20 mg BID BRO Administration Ferrous Sulfate 308 mg 02/09/20 12:00 02/16/20 09:25 Ferrous Sulfate FEEDTUBE 308 mg DAILY BRO Administration Fluticasone Propionate 100 mcg 01/25/20 20:00 01/26/20 06:09 Flonase NS 100 mcg QDAY PRN Administration Nasal Congestion Heparin Sodium (Porcine) 5,000 unit 01/28/20 10:00 02/16/20 21:00 Heparin SUB-Q 5,000 unit Q12HR BRO Administration Hydrophilic Ointment 1 applic 01/28/20 10:57 Vaseline Lip Therapy TP Q2HR PRN Dry Lips Piperacillin Sod/Tazobactam Sod 4.5 gm in 100 mls @ 200 mls/hr 01/19/20 14:00 02/17/20 05:50 Zosyn/Ns 4.5gm/100ml IV 02/27/20 22:29 Infused Q8HR [facility] Infusion Protocol Insulin Human Regular 0 unit 01/27/20 12:00 02/17/20 06:00 Humulin R SUB-Q Not Given Q6HR [facility] Protocol Loperamide HCl 2 mg 02/14/20 12:00 02/14/20 16:48 Loperamide PO 2 mg Q2H PRN Administration Diarrhea Magnesium Hydroxide 30 ml 01/08/20 23:14 Milk Of Magnesia PO Q4H PRN Constipation Mirtazapine 15 mg 01/09/20 22:00 02/16/20 21:01 Remeron PO 15 mg QHS BRO Administration Multi-Ingred Cream/Lotion/Oil/Oint 1 applic 01/28/20 10:57 Artificial Tears Ophth Oint OU Q4HR PRN Dry Eye(s) Multivitamins 5 ml 02/09/20 12:00 02/16/20 09:25 Centrum Liq PO 5 ml QDAY BRO Administration Ondansetron HCl 4 mg 01/08/20 23:14 Zofran IV Q8H PRN Nausea And Vomiting Scopolamine 1 each 02/05/20 10:00 02/14/20 09:31 Transderm-Scop TD 1 each Q3D BRO Administration Simple Syrup 15 ml 01/17/20 08:37 Simple Syrup FEEDTUBE PRN PRN Hypoglycemia Simple Syrup 30 ml 01/17/20 08:37 02/11/20 23:43 Simple Syrup FEEDTUBE 30 ml PRN PRN Administration Hypoglycemia Sodium Bicarbonate 325 mg 01/17/20 08:37 Sodium Bicarbonate FEEDTUBE PRN PRN For Clogged Feeding Tube Sodium Chloride 10 ml 01/09/20 10:00 02/16/20 21:02 Sodium Chloride Flush Syringe 10 Ml IV 10 ml BID BRO Administration Sodium Chloride 10 ml 01/08/20 23:14 Sodium Chloride Flush Syringe 10 Ml IV PRN PRN LINE FLUSH Trazodone HCl 25 mg 01/09/20 22:00 02/16/20 22:01 Desyrel PO 25 mg QHS BRO Administration Nutrition/Malnutrition Assess - Dietary Evaluation Nutrition/Malnutrition Findings: Nutrition Notes Start: 01/09/20 12:13 Freq: Status: Active Protocol: Document 02/16/20 11:23 (Rec: 02/16/20 11:25 [id number]) Nutrition Notes Initial or Follow up Reassessment Current Diagnosis Decubitus(Pressure Ulcer), Diabetes,Sepsis Other Pertinent Diagnosis UTI, dementia, PE, Sacral wound Current Diet Vital AF 1.2 at 50ml/hr Labs/Tests BUN 18 Cr 0.3 Pertinent Medications Reviewed Height 5 ft 2 in Weight 72.8 kg [place] Body Weight (kg) 50.00 BMI 29.3 Weight change and time frame Wt change noted. Pt has edema. Weight Status Overweight Subjective/Other Information FU for TF. TF running at goal and pt tolerating. Percent of energy/protein needs met: 91%/100% Burn Absent Trauma Absent GI Symptoms Diarrhea Current % PO Negligible Minimum of two criteria Yes Fluid Accumulation Moderate to Severe (severe) Reduced Complex Care Nurse Practitioner Strength Measurably Reduced (severe) #3 Nutrition Diagnosis Malnutrition Diagnosis Progress(for reassessment Continues documentation) #2 Nutrition Diagnosis Inadequate oral intake Diagnosis Progress(for reassessment Continues documentation) #1 Nutrition Diagnosis Increased nutrient needs ( specify in comment below) Comments: protein Diagnosis Progress(for reassessment Continues documentation) Is patient on ventilator? Yes Is Patient Ambulatory and/or Out of Bed No [facility] 1447.344 Kcal/Kg value to use for calculation 22 Approximate Energy Requirements Using 1602 kcal/Kg Calculation Used for Recommendations Kcal/kg Additional Notes Pro: 81-98 g (1.25-1.5 g/kg) Fluid: 1ml/kcal Nutrition Intervention Change Diet Order: Continue Nutrition Support: Vital AF 1.2 at 50ml/hr Flush 250ml q4h per MD Kcal 1,440 Protein (gm) 90 Fluid (mL) 973 Goal #1 Meet at least 80% of kcal and protein needs via TF Goal #2 TF tolerance Goal #3 Wound healing Anticipated Discharge Needs: TF Follow-Up By: 02/20/20 Additional Comments F/U for stable TF
[2020-02-17] MEDS: SCOPOLAMINE TRANSDERMAL PATCH 72 HR TD SCH (09:11)
[2020-02-17] MEDS: HEPARIN 5,000 UNIT/1 ML VIAL SUB-Q SCH ×2 (09:11→21:04)
[2020-02-17] MEDS: FAMOTIDINE 20 MG TAB PO SCH ×2 (09:11→21:03)
[2020-02-17] MEDS: MULTIVITAMINS 5 ML ORAL LIQUID PO SCH (09:11)
[2020-02-17] MEDS: FERROUS SULFATE 308 MG (62mg Elemental Iron) / 7 ML ELIXIR FEEDTUBE SCH (09:11)
--- NOTE | 2020-02-17 10:31 | Progress Note ---
Assessment and Plan Severe sepsis with shock. Left lung atelectasis. Left pleural effusion. Acute hypoxemic respiratory failure on MVS s/p Tracheostomy s/p Cardiopulamanry arrest with ROSC x2 Severe sepsis with shock Acute possibly on chronic encephalopathy. History of diabetes. Urinary tract infection. History of pulmonary embolism, diagnosed several months ago. Sacral decubitus ulcer. Dementia. Anemia Right cephalic vein superficial venous thrombosis -Trach care, airway clearance , secretion management -SBT daily, if she tolerates it, will plan to start ATP trials tomorrow -Stop Fentanyl infusion, analgesia per CPOT score -Continue with VTE prophylaxis, midline has been removed. No indication for therapeutic anticoagulation at this time -Keep potassium at 4, Mag at 2 and Phos at 2.5 to optimize respiratory muscle function -Supportive transfusions as indicated to keep HgB >7g/dL to help with wound healing -Optimize nutritional support -CXR, ABG as clinically indicated -CBC, BMP -Monitor hemodynamics closely -VAP bundle addressed, Daily SBT as tolerated -Wean FIO2 for O2 sats >92%, currently on FIO2 of 30% -Aspiration precautions, HOB >40 -Enteric nutritional support- has a PEG - continue bronchodilators with pulmonary hygiene per RT - continue accuchecks with glycemic control per SSI (While critically ill target blood glucose of 140-180 mg/dL; avoid hypoglycemia) - avoid nephrotoxins, renally dose all medications - continue to avoid benzodiazepines, reduce the possibility of delirium - complete antibiotics -on Zosyn for sacral osteomyelitis - prn analgesia per CPOT score - Maintenance of sleep-wake cycle, avoid delirium -VTE prophylaxis with Heparin - Stress ulcer prophylaxis with Famotidine - PT/OT/ROM exercises - continue mobility protocol, frequent turning and off loading to prevent further pressure ulcers -Wound care with wound vac - Monitor hemodynamics closely - continue other care per attending / other consultants Discussed with RT, RN, Clinical pharmacist and case management during ICU-IDT rounds CONDITION: CRITICAL PROGNOSIS: GUARDED CODE STATUS: FULL CODE The high probability of a clinically significant, sudden or life-threatening deterioration of the [respiratory, cardiovascular & neurologic] system(s) required my full and direct attention, intervention and personal management. The aggregate critical care time was [32] minutes without overlap. Time includes spent on; [x] Data Review and interpretation [x] Patient assessment and monitoring of vital signs [x] Documentation [x] Medication orders and management Subjective Date of service: 02/17/20 Principal diagnosis: Septic Shock; S/P Cardiac Arrest; Ac. hypoxemic resp failure; UTI Interval history: Patient is seen today for: PEA arrest with ROSC, trach to MVS; Severe sepsis with shock ; Acute hypoxemic respiratory failure; Acute possibly on chronic encephalopathy; DM II ; UTI ; VTE Seen and examined at bedside; 24hour events reviewed; nursing and respiratory care staff consulted; no adverse overnight events reported to me; resting peacefully in bed; No fevers, no vomiting. s/p trach , awake and alert but not obeying commands. Not on any pressors. No overnight events. On full support this morning On Fentanyl infusion AC-VC 12/300/25%+6 Objective Vital Signs - 12hr 02/16/20 02/16/20 02/16/20 23:00 23:23 23:29 Temperature 98.4 F Pulse Rate 100 H 106 H Pulse Rate [ From Monitor] Respiratory 25 H Rate Blood Pressure 116/56 123/60 O2 Sat by Pulse 100 100 Oximetry O2 Sat by Pulse Oximetry [ Assessment] 02/16/20 02/16/20 02/17/20 23:30 23:35 00:00 Temperature Pulse Rate 105 H 109 H Pulse Rate [ 109 H From Monitor] Respiratory 26 H 28 H Rate Blood Pressure 123/60 122/57 O2 Sat by Pulse 100 100 Oximetry O2 Sat by Pulse 100 Oximetry [ Assessment] 02/17/20 02/17/20 02/17/20 00:30 01:00 01:30 Temperature Pulse Rate 89 77 96 H Pulse Rate [ From Monitor] Respiratory 17 13 25 H Rate Blood Pressure 104/47 116/41 119/55 O2 Sat by Pulse 100 100 100 Oximetry O2 Sat by Pulse Oximetry [ Assessment] 02/17/20 02/17/20 02/17/20 02:00 02:30 03:00 Temperature Pulse Rate 98 H 95 H 78 Pulse Rate [ From Monitor] Respiratory 26 H 24 20 Rate Blood Pressure 112/54 116/52 114/43 O2 Sat by Pulse 100 100 100 Oximetry O2 Sat by Pulse Oximetry [ Assessment] 02/17/20 02/17/20 02/17/20 03:30 03:32 04:00 Temperature 98.8 F Pulse Rate 111 H 95 H Pulse Rate [ 95 H From Monitor] Respiratory 27 H 25 H Rate Blood Pressure 138/67 134/61 O2 Sat by Pulse 100 100 Oximetry O2 Sat by Pulse Oximetry [ Assessment] 02/17/20 02/17/20 02/17/20 04:13 04:30 05:00 Temperature Pulse Rate 97 H 98 H 94 H Pulse Rate [ From Monitor] Respiratory 25 H 24 Rate Blood Pressure 134/61 132/64 124/61 O2 Sat by Pulse 100 100 100 Oximetry O2 Sat by Pulse Oximetry [ Assessment] 02/17/20 02/17/20 02/17/20 05:31 06:00 06:30 Temperature Pulse Rate 110 H 99 H 108 H Pulse Rate [ From Monitor] Respiratory 30 H 25 H 27 H Rate Blood Pressure 131/80 135/69 142/69 O2 Sat by Pulse 100 100 100 Oximetry O2 Sat by Pulse Oximetry [ Assessment] 02/17/20 02/17/20 02/17/20 07:00 07:30 08:00 Temperature 98.7 F Pulse Rate 105 H 98 H 99 H Pulse Rate [ 109 H From Monitor] Respiratory 24 26 H 24 Rate Blood Pressure 136/64 121/64 134/61 O2 Sat by Pulse 100 100 100 Oximetry O2 Sat by Pulse Oximetry [ Assessment] 02/17/20 02/17/20 02/17/20 08:30 08:38 09:00 Temperature Pulse Rate 104 H 104 H 104 H Pulse Rate [ From Monitor] Respiratory 26 H 25 H Rate Blood Pressure 136/70 136/70 144/69 O2 Sat by Pulse 100 100 100 Oximetry O2 Sat by Pulse Oximetry [ Assessment] 02/17/20 09:30 Temperature Pulse Rate 105 H Pulse Rate [ From Monitor] Respiratory 23 Rate Blood Pressure 155/71 O2 Sat by Pulse 100 Oximetry O2 Sat by Pulse Oximetry [ Assessment] Constitutional: no acute distress, alert, other (elderly chronically ill looking female trach to [facility] [place]) Eyes: non-icteric ENT: oropharynx moist, other (trach) Neck: supple, no lymphadenopathy Effort: normal Ascultation: Bilateral: clear, diminished breath sounds, rales (bases predominant), rhonchi (scant) Percussion: Bilateral: not dull Cardiovascular: regular rate and rhythm, other (S1,S2) Gastrointestinal: normoactive bowel sounds, soft, non-tender, other (PEG in plac e) Integumentary: decubitus ulcer Extremities: no cyanosis, pulses normal, no ischemia or petechiae, edema, other (bilateral upper extremity edema) Neurologic: pupils equal and round, other (awake and alert, not obeying comma nds) Psychiatric: other (Unable to assess secondary to mental status) CBC and BMP: 02/18/20 04:43 02/18/20 04:43 ABG, PT/INR, D-dimer: ABG ABG pH 7.463 pH Units (7.350-7.450) H 02/13/20 04:30 POC ABG pCO2 38.5 mmHg (32.0-48.0) 02/11/20 03:43 ABG pCO2 39.6 mm Hg 02/13/20 04:30 POC ABG pO2 112.6 mmHg (83-108) H 02/11/20 03:43 ABG pO2 98.4 mm Hg (80.0-90.0) H 02/13/20 04:30 POC ABG HCO3 28 02/11/20 03:43 ABG O2 Saturation 97.7 % (95.0-99.0) 02/13/20 04:30 PT/INR, D-dimer PT 14.4 Sec. (12.2-14.9) 02/02/20 05:25 INR 1.11 (0.87-1.13) 02/02/20 05:25 Abnormal lab findings: Abnormal Labs 01/08/20 01/08/20 01/08/20 16:29 16:29 16:29 WBC 13.5 H RBC Hgb Hct MCHC RDW 15.5 H Plt Count MCH Lymph % (Auto) Lymph # Lymph # (Auto) Seg Neutrophils % Seg Neuts % (Manual) 85.0 H Lymphocytes % (Manual) 11.0 L Seg Neutrophils # Seg Neutrophils # Man 11.5 H Nucleated RBC % Lymphocytes # (Manual) Monocytes # (Manual) PT INR Heparin Anti-Xa Level POC ABG pO2 ABG pH ABG Hemoglobin ABG Oxyhemoglobin ABG pO2 ABG HCO3 ABG O2 Saturation ABG Base Excess ABG Potassium ABG Chloride ABG Glucose Oxyhemoglobin Sodium 161 H* Potassium Chloride 125.5 H Carbon Dioxide 20 L BUN 30 H Creatinine Glucose 115 H POC Glucose Lactic Acid 2.20 H* Calcium 7.9 L AST 48 H Phosphorus Total Protein Albumin 2.5 L C-Reactive Protein Arterial Blood Glucose Arterial Blood Ionized Calcium Urine WBC (Auto) Crossmatch 01/08/20 01/08/20 01/08/20 19:02 23:30 Unknown WBC RBC Hgb Hct MCHC RDW Plt Count MCH Lymph % (Auto) Lymph # Lymph # (Auto) Seg Neutrophils % Seg Neuts % (Manual) Lymphocytes % (Manual) Seg Neutrophils # Seg Neutrophils # Man Nucleated RBC % Lymphocytes # (Manual) Monocytes # (Manual) PT INR Heparin Anti-Xa Level POC ABG pO2 ABG pH ABG Hemoglobin ABG Oxyhemoglobin ABG pO2 ABG HCO3 ABG O2 Saturation ABG Base Excess ABG Potassium ABG Chloride ABG Glucose Oxyhemoglobin Sodium Potassium Chloride Carbon Dioxide BUN Creatinine Glucose POC Glucose Lactic Acid 2.10 H* 2.50 H* Calcium AST Phosphorus Total Protein Albumin C-Reactive Protein Arterial Blood Glucose Arterial Blood Ionized Calcium Urine WBC (Auto) 11.0 H Crossmatch 01/09/20 01/09/20 01/09/20 00:19 00:54 05:52 WBC 13.5 H RBC 3.02 L Hgb 9.0 L D Hct 27.4 L D MCHC RDW Plt Count MCH Lymph % (Auto) 9.1 L Lymph # Lymph # (Auto) Seg Neutrophils % 87.6 H Seg Neuts % (Manual) Lymphocytes % (Manual) Seg Neutrophils # 11.8 H Seg Neutrophils # Man Nucleated RBC % Lymphocytes # (Manual) Monocytes # (Manual) PT INR Heparin Anti-Xa Level POC ABG pO2 ABG pH ABG Hemoglobin ABG Oxyhemoglobin ABG pO2 ABG HCO3 ABG O2 Saturation ABG Base Excess ABG Potassium ABG Chloride ABG Glucose Oxyhemoglobin Sodium Potassium Chloride Carbon Dioxide BUN Creatinine Glucose POC Glucose 118 H 116 H Lactic Acid Calcium AST Phosphorus Total Protein Albumin C-Reactive Protein Arterial Blood Glucose Arterial Blood Ionized Calcium Urine WBC (Auto) Crossmatch 01/09/20 01/09/20 01/09/20 05:52 05:52 13:03 WBC RBC Hgb Hct MCHC RDW Plt Count MCH Lymph % (Auto) Lymph # Lymph # (Auto) Seg Neutrophils % Seg Neuts % (Manual) Lymphocytes % (Manual) Seg Neutrophils # Seg Neutrophils # Man Nucleated RBC % Lymphocytes # (Manual) Monocytes # (Manual) PT 17.1 H INR 1.36 H Heparin Anti-Xa Level POC ABG pO2 ABG pH ABG Hemoglobin ABG Oxyhemoglobin ABG pO2 ABG HCO3 ABG O2 Saturation ABG Base Excess ABG Potassium ABG Chloride ABG Glucose Oxyhemoglobin Sodium 162 H* Potassium 3.0 L D Chloride 128.3 H Carbon Dioxide BUN 23 H Creatinine Glucose POC Glucose 55 L Lactic Acid Calcium 7.6 L AST Phosphorus Total Protein Albumin C-Reactive Protein Arterial Blood Glucose Arterial Blood Ionized Calcium Urine WBC (Auto) Crossmatch 01/09/20 01/09/20 01/09/20 21:22 21:50 22:28 WBC RBC Hgb Hct MCHC RDW Plt Count MCH Lymph % (Auto) Lymph # Lymph # (Auto) Seg Neutrophils % Seg Neuts % (Manual) Lymphocytes % (Manual) Seg Neutrophils # Seg Neutrophils # Man Nucleated RBC % Lymphocytes # (Manual) Monocytes # (Manual) PT INR Heparin Anti-Xa Level POC ABG pO2 ABG pH ABG Hemoglobin ABG Oxyhemoglobin ABG pO2 ABG HCO3 ABG O2 Saturation ABG Base Excess ABG Potassium ABG Chloride ABG Glucose Oxyhemoglobin Sodium 159 H Potassium 5.1 H D Chloride 128.5 H Carbon Dioxide 16 L BUN 23 H Creatinine Glucose 51 L POC Glucose 52 L 106 H Lactic Acid Calcium 8.2 L AST Phosphorus Total Protein Albumin C-Reactive Protein Arterial Blood Glucose Arterial Blood Ionized Calcium Urine WBC (Auto) Crossmatch 01/10/20 01/10/20 01/10/20 05:23 09:11 10:10 WBC 13.4 H RBC Hgb Hct MCHC RDW Plt Count MCH Lymph % (Auto) 7.2 L Lymph # 1.0 L Lymph # (Auto) Seg Neutrophils % 90.0 H Seg Neuts % (Manual) Lymphocytes % (Manual) Seg Neutrophils # 12.0 H Seg Neutrophils # Man Nucleated RBC % Lymphocytes # (Manual) Monocytes # (Manual) PT INR Heparin Anti-Xa Level POC ABG pO2 ABG pH ABG Hemoglobin ABG Oxyhemoglobin ABG pO2 ABG HCO3 ABG O2 Saturation ABG Base Excess ABG Potassium ABG Chloride ABG Glucose Oxyhemoglobin Sodium 155 H Potassium Chloride 122.8 H Carbon Dioxide 21 L BUN 19 H Creatinine Glucose POC Glucose 120 H Lactic Acid Calcium AST Phosphorus Total Protein Albumin C-Reactive Protein Arterial Blood Glucose Arterial Blood Ionized Calcium Urine WBC (Auto) Crossmatch 01/10/20 01/10/20 01/10/20 11:47 11:57 17:09 WBC RBC Hgb Hct MCHC RDW Plt Count MCH Lymph % (Auto) Lymph # Lymph # (Auto) Seg Neutrophils % Seg Neuts % (Manual) Lymphocytes % (Manual) Seg Neutrophils # Seg Neutrophils # Man Nucleated RBC % Lymphocytes # (Manual) Monocytes # (Manual) PT INR Heparin Anti-Xa Level POC ABG pO2 ABG pH ABG Hemoglobin ABG Oxyhemoglobin ABG pO2 ABG HCO3 ABG O2 Saturation ABG Base Excess ABG Potassium ABG Chloride ABG Glucose Oxyhemoglobin Sodium 153 H Potassium Chloride 118.3 H Carbon Dioxide 20 L BUN 19 H Creatinine Glucose 113 H POC Glucose 142 H 125 H Lactic Acid Calcium AST Phosphorus Total Protein Albumin C-Reactive Protein Arterial Blood Glucose Arterial Blood Ionized Calcium Urine WBC (Auto) Crossmatch 01/10/20 01/10/20 01/11/20 20:27 22:00 00:45 WBC RBC Hgb Hct MCHC RDW Plt Count MCH Lymph % (Auto) Lymph # Lymph # (Auto) Seg Neutrophils % Seg Neuts % (Manual) Lymphocytes % (Manual) Seg Neutrophils # Seg Neutrophils # Man Nucleated RBC % Lymphocytes # (Manual) Monocytes # (Manual) PT INR Heparin Anti-Xa Level POC ABG pO2 ABG pH ABG Hemoglobin ABG Oxyhemoglobin ABG pO2 ABG HCO3 ABG O2 Saturation ABG Base Excess ABG Potassium ABG Chloride ABG Glucose Oxyhemoglobin Sodium 153 H 154 H Potassium 3.3 L 3.2 L Chloride 117.0 H 118.9 H Carbon Dioxide 20 L BUN Creatinine Glucose POC Glucose 136 H Lactic Acid Calcium 8.3 L 8.0 L AST Phosphorus Total Protein Albumin C-Reactive Protein Arterial Blood Glucose Arterial Blood Ionized Calcium Urine WBC (Auto) Crossmatch 01/11/20 01/11/20 01/11/20 07:06 08:03 11:54 WBC RBC Hgb Hct MCHC RDW Plt Count MCH Lymph % (Auto) Lymph # Lymph # (Auto) Seg Neutrophils % Seg Neuts % (Manual) Lymphocytes % (Manual) Seg Neutrophils # Seg Neutrophils # Man Nucleated RBC % Lymphocytes # (Manual) Monocytes # (Manual) PT INR Heparin Anti-Xa Level POC ABG pO2 ABG pH ABG Hemoglobin ABG Oxyhemoglobin ABG pO2 ABG HCO3 ABG O2 Saturation ABG Base Excess ABG Potassium ABG Chloride ABG Glucose Oxyhemoglobin Sodium 151 H Potassium Chloride 118.7 H Carbon Dioxide 21 L BUN Creatinine Glucose 107 H POC Glucose 118 H 164 H Lactic Acid Calcium 8.3 L AST Phosphorus Total Protein Albumin C-Reactive Protein Arterial Blood Glucose Arterial Blood Ionized Calcium Urine WBC (Auto) Crossmatch 01/11/20 01/12/20 01/12/20 16:28 00:19 05:40 WBC RBC Hgb Hct MCHC RDW Plt Count MCH Lymph % (Auto) Lymph # Lymph # (Auto) Seg Neutrophils % Seg Neuts % (Manual) Lymphocytes % (Manual) Seg Neutrophils # Seg Neutrophils # Man Nucleated RBC % Lymphocytes # (Manual) Monocytes # (Manual) PT INR Heparin Anti-Xa Level POC ABG pO2 ABG pH ABG Hemoglobin ABG Oxyhemoglobin ABG pO2 ABG HCO3 ABG O2 Saturation ABG Base Excess ABG Potassium ABG Chloride ABG Glucose Oxyhemoglobin Sodium 148 H Potassium Chloride 111.6 H Carbon Dioxide 19 L BUN Creatinine Glucose 128 H POC Glucose 132 H 179 H Lactic Acid Calcium 8.2 L AST Phosphorus Total Protein Albumin C-Reactive Protein Arterial Blood Glucose Arterial Blood Ionized Calcium Urine WBC (Auto) Crossmatch 01/12/20 01/12/20 01/12/20 06:17 11:37 17:21 WBC RBC Hgb Hct MCHC RDW Plt Count MCH Lymph % (Auto) Lymph # Lymph # (Auto) Seg Neutrophils % Seg Neuts % (Manual) Lymphocytes % (Manual) Seg Neutrophils # Seg Neutrophils # Man Nucleated RBC % Lymphocytes # (Manual) Monocytes # (Manual) PT INR Heparin Anti-Xa Level POC ABG pO2 ABG pH ABG Hemoglobin ABG Oxyhemoglobin ABG pO2 ABG HCO3 ABG O2 Saturation ABG Base Excess ABG Potassium ABG Chloride ABG Glucose Oxyhemoglobin Sodium Potassium Chloride Carbon Dioxide BUN Creatinine Glucose POC Glucose 140 H 142 H 133 H Lactic Acid Calcium AST Phosphorus Total Protein Albumin C-Reactive Protein Arterial Blood Glucose Arterial Blood Ionized Calcium Urine WBC (Auto) Crossmatch 01/12/20 01/13/20 01/13/20 23:14 05:26 07:00 WBC RBC Hgb Hct MCHC RDW Plt Count MCH Lymph % (Auto) Lymph # Lymph # (Auto) Seg Neutrophils % Seg Neuts % (Manual) Lymphocytes % (Manual) Seg Neutrophils # Seg Neutrophils # Man Nucleated RBC % Lymphocytes # (Manual) Monocytes # (Manual) PT INR Heparin Anti-Xa Level POC ABG pO2 ABG pH ABG Hemoglobin ABG Oxyhemoglobin ABG pO2 ABG HCO3 ABG O2 Saturation ABG Base Excess ABG Potassium ABG Chloride ABG Glucose Oxyhemoglobin Sodium Potassium Chloride 110.0 H Carbon Dioxide BUN Creatinine Glucose 139 H POC Glucose 135 H 162 H Lactic Acid Calcium 7.8 L AST Phosphorus Total Protein Albumin C-Reactive Protein Arterial Blood Glucose Arterial Blood Ionized Calcium Urine WBC (Auto) Crossmatch 01/13/20 01/13/20 01/13/20 12:14 17:52 21:40 WBC RBC Hgb Hct MCHC RDW Plt Count MCH Lymph % (Auto) Lymph # Lymph # (Auto) Seg Neutrophils % Seg Neuts % (Manual) Lymphocytes % (Manual) Seg Neutrophils # Seg Neutrophils # Man Nucleated RBC % Lymphocytes # (Manual) Monocytes # (Manual) PT INR Heparin Anti-Xa Level POC ABG pO2 ABG pH ABG Hemoglobin ABG Oxyhemoglobin ABG pO2 ABG HCO3 ABG O2 Saturation ABG Base Excess ABG Potassium ABG Chloride ABG Glucose Oxyhemoglobin Sodium Potassium Chloride Carbon Dioxide BUN Creatinine Glucose POC Glucose 205 H 172 H 186 H Lactic Acid Calcium AST Phosphorus Total Protein Albumin C-Reactive Protein Arterial Blood Glucose Arterial Blood Ionized Calcium Urine WBC (Auto) Crossmatch 01/14/20 01/14/20 01/14/20 04:28 11:01 11:01 WBC 14.8 H RBC 3.20 L Hgb 9.5 L Hct 28.0 L MCHC RDW Plt Count MCH Lymph % (Auto) Lymph # Lymph # (Auto) Seg Neutrophils % Seg Neuts % (Manual) Lymphocytes % (Manual) Seg Neutrophils # Seg Neutrophils # Man Nucleated RBC % Lymphocytes # (Manual) Monocytes # (Manual) PT INR Heparin Anti-Xa Level POC ABG pO2 ABG pH ABG Hemoglobin ABG Oxyhemoglobin ABG pO2 ABG HCO3 ABG O2 Saturation ABG Base Excess ABG Potassium ABG Chloride ABG Glucose Oxyhemoglobin Sodium Potassium 3.2 L Chloride Carbon Dioxide BUN Creatinine 0.4 L Glucose POC Glucose 115 H Lactic Acid Calcium 8.0 L AST Phosphorus Total Protein Albumin C-Reactive Protein Arterial Blood Glucose Arterial Blood Ionized Calcium Urine WBC (Auto) Crossmatch 01/14/20 01/14/20 01/14/20 11:01 16:33 22:32 WBC RBC Hgb Hct MCHC RDW Plt Count MCH Lymph % (Auto) Lymph # Lymph # (Auto) Seg Neutrophils % Seg Neuts % (Manual) Lymphocytes % (Manual) Seg Neutrophils # Seg Neutrophils # Man Nucleated RBC % Lymphocytes # (Manual) Monocytes # (Manual) PT 15.8 H INR 1.23 H Heparin Anti-Xa Level POC ABG pO2 ABG pH ABG Hemoglobin ABG Oxyhemoglobin ABG pO2 ABG HCO3 ABG O2 Saturation ABG Base Excess ABG Potassium ABG Chloride ABG Glucose Oxyhemoglobin Sodium Potassium Chloride Carbon Dioxide BUN Creatinine Glucose POC Glucose 58 L 188 H Lactic Acid Calcium AST Phosphorus Total Protein Albumin C-Reactive Protein Arterial Blood Glucose Arterial Blood Ionized Calcium Urine WBC (Auto) Crossmatch 01/15/20 01/15/20 01/15/20 05:35 06:19 17:17 WBC RBC Hgb Hct MCHC RDW Plt Count MCH Lymph % (Auto) Lymph # Lymph # (Auto) Seg Neutrophils % Seg Neuts % (Manual) Lymphocytes % (Manual) Seg Neutrophils # Seg Neutrophils # Man Nucleated RBC % Lymphocytes # (Manual) Monocytes # (Manual) PT INR Heparin Anti-Xa Level POC ABG pO2 ABG pH ABG Hemoglobin ABG Oxyhemoglobin ABG pO2 ABG HCO3 ABG O2 Saturation ABG Base Excess ABG Potassium ABG Chloride ABG Glucose Oxyhemoglobin Sodium Potassium Chloride Carbon Dioxide BUN Creatinine 0.5 L Glucose 104 H POC Glucose 106 H 183 H Lactic Acid Calcium 7.8 L AST Phosphorus Total Protein Albumin C-Reactive Protein Arterial Blood Glucose Arterial Blood Ionized Calcium Urine WBC (Auto) Crossmatch 01/15/20 01/16/20 01/16/20 22:29 05:35 05:59 WBC 14.7 H RBC 3.04 L Hgb 9.0 L Hct 27.0 L MCHC RDW Plt Count MCH Lymph % (Auto) 9.1 L Lymph # Lymph # (Auto) Seg Neutrophils % 87.3 H Seg Neuts % (Manual) Lymphocytes % (Manual) Seg Neutrophils # 12.9 H Seg Neutrophils # Man Nucleated RBC % Lymphocytes # (Manual) Monocytes # (Manual) PT INR Heparin Anti-Xa Level POC ABG pO2 ABG pH ABG Hemoglobin ABG Oxyhemoglobin ABG pO2 ABG HCO3 ABG O2 Saturation ABG Base Excess ABG Potassium ABG Chloride ABG Glucose Oxyhemoglobin Sodium Potassium Chloride Carbon Dioxide BUN Creatinine Glucose POC Glucose 228 H 130 H Lactic Acid Calcium AST Phosphorus Total Protein Albumin C-Reactive Protein Arterial Blood Glucose Arterial Blood Ionized Calcium Urine WBC (Auto) Crossmatch 01/16/20 01/16/20 01/16/20 09:52 12:49 17:30 WBC RBC Hgb Hct MCHC RDW Plt Count MCH Lymph % (Auto) Lymph # Lymph # (Auto) Seg Neutrophils % Seg Neuts % (Manual) Lymphocytes % (Manual) Seg Neutrophils # Seg Neutrophils # Man Nucleated RBC % Lymphocytes # (Manual) Monocytes # (Manual) PT INR Heparin Anti-Xa Level POC ABG pO2 ABG pH ABG Hemoglobin ABG Oxyhemoglobin ABG pO2 ABG HCO3 ABG O2 Saturation ABG Base Excess ABG Potassium ABG Chloride ABG Glucose Oxyhemoglobin Sodium Potassium Chloride Carbon Dioxide BUN Creatinine Glucose POC Glucose 122 H 142 H 192 H Lactic Acid Calcium AST Phosphorus Total Protein Albumin C-Reactive Protein Arterial Blood Glucose Arterial Blood Ionized Calcium Urine WBC (Auto) Crossmatch 01/16/20 01/17/20 01/17/20 23:01 08:36 08:36 WBC 12.7 H RBC 2.98 L Hgb 8.9 L Hct 26.4 L MCHC RDW Plt Count MCH Lymph % (Auto) 8.8 L Lymph # 1.1 L Lymph # (Auto) Seg Neutrophils % 86.7 H Seg Neuts % (Manual) Lymphocytes % (Manual) Seg Neutrophils # 11.0 H Seg Neutrophils # Man Nucleated RBC % Lymphocytes # (Manual) Monocytes # (Manual) PT INR Heparin Anti-Xa Level POC ABG pO2 ABG pH ABG Hemoglobin ABG Oxyhemoglobin ABG pO2 ABG HCO3 ABG O2 Saturation ABG Base Excess ABG Potassium ABG Chloride ABG Glucose Oxyhemoglobin Sodium Potassium 3.3 L D Chloride Carbon Dioxide BUN Creatinine 0.4 L Glucose POC Glucose 141 H Lactic Acid Calcium 8.1 L AST Phosphorus Total Protein 4.6 L Albumin 1.6 L C-Reactive Protein Arterial Blood Glucose Arterial Blood Ionized Calcium Urine WBC (Auto) Crossmatch 01/17/20 01/17/20 01/18/20 11:43 23:56 06:27 WBC RBC Hgb Hct MCHC RDW Plt Count MCH Lymph % (Auto) Lymph # Lymph # (Auto) Seg Neutrophils % Seg Neuts % (Manual) Lymphocytes % (Manual) Seg Neutrophils # Seg Neutrophils # Man Nucleated RBC % Lymphocytes # (Manual) Monocytes # (Manual) PT INR Heparin Anti-Xa Level POC ABG pO2 ABG pH ABG Hemoglobin ABG Oxyhemoglobin ABG pO2 ABG HCO3 ABG O2 Saturation ABG Base Excess ABG Potassium ABG Chloride ABG Glucose Oxyhemoglobin Sodium Potassium Chloride Carbon Dioxide BUN Creatinine Glucose POC Glucose 137 H 215 H 122 H Lactic Acid Calcium AST Phosphorus Total Protein Albumin C-Reactive Protein Arterial Blood Glucose Arterial Blood Ionized Calcium Urine WBC (Auto) Crossmatch 01/18/20 01/18/20 01/18/20 07:31 07:31 11:39 WBC 12.1 H RBC 3.23 L Hgb 9.7 L Hct 28.7 L MCHC RDW Plt Count MCH Lymph % (Auto) 9.2 L Lymph # 1.1 L Lymph # (Auto) Seg Neutrophils % 85.0 H Seg Neuts % (Manual) Lymphocytes % (Manual) Seg Neutrophils # 10.3 H Seg Neutrophils # Man Nucleated RBC % Lymphocytes # (Manual) Monocytes # (Manual) PT INR Heparin Anti-Xa Level POC ABG pO2 ABG pH ABG Hemoglobin ABG Oxyhemoglobin ABG pO2 ABG HCO3 ABG O2 Saturation ABG Base Excess ABG Potassium ABG Chloride ABG Glucose Oxyhemoglobin Sodium Potassium Chloride Carbon Dioxide BUN Creatinine 0.4 L Glucose 108 H POC Glucose 172 H Lactic Acid Calcium AST Phosphorus Total Protein 5.3 L Albumin 2.1 L C-Reactive Protein Arterial Blood Glucose Arterial Blood Ionized Calcium Urine WBC (Auto) Crossmatch 01/18/20 01/19/20 01/19/20 18:22 00:15 11:30 WBC RBC Hgb Hct MCHC RDW Plt Count MCH Lymph % (Auto) Lymph # Lymph # (Auto) Seg Neutrophils % Seg Neuts % (Manual) Lymphocytes % (Manual) Seg Neutrophils # Seg Neutrophils # Man Nucleated RBC % Lymphocytes # (Manual) Monocytes # (Manual) PT INR Heparin Anti-Xa Level POC ABG pO2 ABG pH ABG Hemoglobin ABG Oxyhemoglobin ABG pO2 ABG HCO3 ABG O2 Saturation ABG Base Excess ABG Potassium ABG Chloride ABG Glucose Oxyhemoglobin Sodium Potassium Chloride Carbon Dioxide BUN Creatinine Glucose POC Glucose 119 H 135 H 163 H Lactic Acid Calcium AST Phosphorus Total Protein Albumin C-Reactive Protein Arterial Blood Glucose Arterial Blood Ionized Calcium Urine WBC (Auto) Crossmatch 01/19/20 01/19/20 01/20/20 17:44 22:59 03:44 WBC 11.1 H RBC 2.77 L Hgb 8.4 L Hct 25.0 L MCHC RDW Plt Count MCH Lymph % (Auto) Lymph # Lymph # (Auto) Seg Neutrophils % 74.6 H Seg Neuts % (Manual) Lymphocytes % (Manual) Seg Neutrophils # 8.3 H Seg Neutrophils # Man Nucleated RBC % Lymphocytes # (Manual) Monocytes # (Manual) PT INR Heparin Anti-Xa Level POC ABG pO2 ABG pH ABG Hemoglobin ABG Oxyhemoglobin ABG pO2 ABG HCO3 ABG O2 Saturation ABG Base Excess ABG Potassium ABG Chloride ABG Glucose Oxyhemoglobin Sodium Potassium Chloride Carbon Dioxide BUN Creatinine Glucose POC Glucose 161 H 182 H Lactic Acid Calcium AST Phosphorus Total Protein Albumin C-Reactive Protein Arterial Blood Glucose Arterial Blood Ionized Calcium Urine WBC (Auto) Crossmatch 01/20/20 01/21/20 01/21/20 03:44 00:07 05:51 WBC RBC 2.84 L Hgb 8.6 L Hct 25.5 L MCHC RDW Plt Count 463 H MCH Lymph % (Auto) Lymph # Lymph # (Auto) Seg Neutrophils % 76.9 H Seg Neuts % (Manual) Lymphocytes % (Manual) Seg Neutrophils # 7.8 H Seg Neutrophils # Man Nucleated RBC % Lymphocytes # (Manual) Monocytes # (Manual) PT INR Heparin Anti-Xa Level POC ABG pO2 ABG pH ABG Hemoglobin ABG Oxyhemoglobin ABG pO2 ABG HCO3 ABG O2 Saturation ABG Base Excess ABG Potassium ABG Chloride ABG Glucose Oxyhemoglobin Sodium Potassium Chloride Carbon Dioxide BUN Creatinine 0.4 L Glucose POC Glucose 68 L Lactic Acid Calcium 7.9 L AST Phosphorus Total Protein 4.7 L Albumin 1.9 L C-Reactive Protein Arterial Blood Glucose Arterial Blood Ionized Calcium Urine WBC (Auto) Crossmatch 01/21/20 01/21/20 01/21/20 05:51 05:58 11:25 WBC RBC Hgb Hct MCHC RDW Plt Count MCH Lymph % (Auto) Lymph # Lymph # (Auto) Seg Neutrophils % Seg Neuts % (Manual) Lymphocytes % (Manual) Seg Neutrophils # Seg Neutrophils # Man Nucleated RBC % Lymphocytes # (Manual) Monocytes # (Manual) PT INR Heparin Anti-Xa Level POC ABG pO2 ABG pH ABG Hemoglobin ABG Oxyhemoglobin ABG pO2 ABG HCO3 ABG O2 Saturation ABG Base Excess ABG Potassium ABG Chloride ABG Glucose Oxyhemoglobin Sodium Potassium Chloride Carbon Dioxide 20 L BUN Creatinine 0.5 L Glucose 130 H POC Glucose 185 H 163 H Lactic Acid Calcium 7.6 L AST Phosphorus Total Protein 5.0 L Albumin 1.9 L C-Reactive Protein Arterial Blood Glucose Arterial Blood Ionized Calcium Urine WBC (Auto) Crossmatch 01/21/20 01/21/20 01/22/20 16:22 21:17 01:28 WBC RBC 2.60 L Hgb 8.0 L Hct 23.3 L MCHC RDW Plt Count MCH Lymph % (Auto) Lymph # Lymph # (Auto) Seg Neutrophils % 74.8 H Seg Neuts % (Manual) Lymphocytes % (Manual) Seg Neutrophils # Seg Neutrophils # Man Nucleated RBC % Lymphocytes # (Manual) Monocytes # (Manual) PT INR Heparin Anti-Xa Level POC ABG pO2 ABG pH ABG Hemoglobin ABG Oxyhemoglobin ABG pO2 ABG HCO3 ABG O2 Saturation ABG Base Excess ABG Potassium ABG Chloride ABG Glucose Oxyhemoglobin Sodium Potassium Chloride Carbon Dioxide BUN Creatinine Glucose POC Glucose 177 H 67 L Lactic Acid Calcium AST Phosphorus Total Protein Albumin C-Reactive Protein Arterial Blood Glucose Arterial Blood Ionized Calcium Urine WBC (Auto) Crossmatch 01/22/20 01/22/20 01/22/20 01:28 01:28 12:06 WBC RBC Hgb Hct MCHC RDW Plt Count MCH Lymph % (Auto) Lymph # Lymph # (Auto) Seg Neutrophils % Seg Neuts % (Manual) Lymphocytes % (Manual) Seg Neutrophils # Seg Neutrophils # Man Nucleated RBC % Lymphocytes # (Manual) Monocytes # (Manual) PT INR Heparin Anti-Xa Level POC ABG pO2 ABG pH ABG Hemoglobin ABG Oxyhemoglobin ABG pO2 ABG HCO3 ABG O2 Saturation ABG Base Excess ABG Potassium ABG Chloride ABG Glucose Oxyhemoglobin Sodium Potassium Chloride 107.6 H Carbon Dioxide BUN Creatinine 0.4 L Glucose 152 H POC Glucose 203 H 140 H Lactic Acid Calcium 7.5 L AST Phosphorus Total Protein 4.0 L Albumin 2.0 L C-Reactive Protein Arterial Blood Glucose Arterial Blood Ionized Calcium Urine WBC (Auto) Crossmatch 01/22/20 01/22/20 01/23/20 16:24 22:55 06:10 WBC RBC 2.68 L Hgb 8.6 L Hct 24.1 L MCHC 36 H RDW Plt Count MCH Lymph % (Auto) Lymph # Lymph # (Auto) Seg Neutrophils % Seg Neuts % (Manual) 71.0 H Lymphocytes % (Manual) Seg Neutrophils # Seg Neutrophils # Man Nucleated RBC % Lymphocytes # (Manual) Monocytes # (Manual) PT INR Heparin Anti-Xa Level POC ABG pO2 ABG pH ABG Hemoglobin ABG Oxyhemoglobin ABG pO2 ABG HCO3 ABG O2 Saturation ABG Base Excess ABG Potassium ABG Chloride ABG Glucose Oxyhemoglobin Sodium Potassium Chloride Carbon Dioxide BUN Creatinine Glucose POC Glucose 205 H 196 H Lactic Acid Calcium AST Phosphorus Total Protein Albumin C-Reactive Protein Arterial Blood Glucose Arterial Blood Ionized Calcium Urine WBC (Auto) Crossmatch 01/23/20 01/23/20 01/23/20 06:10 07:35 11:59 WBC RBC Hgb Hct MCHC RDW Plt Count MCH Lymph % (Auto) Lymph # Lymph # (Auto) Seg Neutrophils % Seg Neuts % (Manual) Lymphocytes % (Manual) Seg Neutrophils # Seg Neutrophils # Man Nucleated RBC % Lymphocytes # (Manual) Monocytes # (Manual) PT INR Heparin Anti-Xa Level POC ABG pO2 ABG pH ABG Hemoglobin ABG Oxyhemoglobin ABG pO2 ABG HCO3 ABG O2 Saturation ABG Base Excess ABG Potassium ABG Chloride ABG Glucose Oxyhemoglobin Sodium Potassium Chloride 108.8 H Carbon Dioxide BUN Creatinine 0.4 L Glucose 105 H POC Glucose 111 H 123 H Lactic Acid Calcium 8.0 L AST Phosphorus Total Protein 4.9 L D Albumin 2.0 L C-Reactive Protein Arterial Blood Glucose Arterial Blood Ionized Calcium Urine WBC (Auto) Crossmatch 01/23/20 01/24/20 01/24/20 22:45 11:24 16:41 WBC RBC Hgb Hct MCHC RDW Plt Count MCH Lymph % (Auto) Lymph # Lymph # (Auto) Seg Neutrophils % Seg Neuts % (Manual) Lymphocytes % (Manual) Seg Neutrophils # Seg Neutrophils # Man Nucleated RBC % Lymphocytes # (Manual) Monocytes # (Manual) PT INR Heparin Anti-Xa Level POC ABG pO2 ABG pH ABG Hemoglobin ABG Oxyhemoglobin ABG pO2 ABG HCO3 ABG O2 Saturation ABG Base Excess ABG Potassium ABG Chloride ABG Glucose Oxyhemoglobin Sodium Potassium Chloride Carbon Dioxide BUN Creatinine Glucose POC Glucose 180 H 182 H 177 H Lactic Acid Calcium AST Phosphorus Total Protein Albumin C-Reactive Protein Arterial Blood Glucose Arterial Blood Ionized Calcium Urine WBC (Auto) Crossmatch 01/24/20 01/25/20 01/25/20 23:11 07:12 11:35 WBC RBC Hgb Hct MCHC RDW Plt Count MCH Lymph % (Auto) Lymph # Lymph # (Auto) Seg Neutrophils % Seg Neuts % (Manual) Lymphocytes % (Manual) Seg Neutrophils # Seg Neutrophils # Man Nucleated RBC % Lymphocytes # (Manual) Monocytes # (Manual) PT INR Heparin Anti-Xa Level POC ABG pO2 ABG pH ABG Hemoglobin ABG Oxyhemoglobin ABG pO2 ABG HCO3 ABG O2 Saturation ABG Base Excess ABG Potassium ABG Chloride ABG Glucose Oxyhemoglobin Sodium Potassium Chloride Carbon Dioxide BUN Creatinine Glucose POC Glucose 142 H 135 H 142 H Lactic Acid Calcium AST Phosphorus Total Protein Albumin C-Reactive Protein Arterial Blood Glucose Arterial Blood Ionized Calcium Urine WBC (Auto) Crossmatch 01/25/20 01/26/20 01/26/20 16:33 00:04 11:35 WBC RBC Hgb Hct MCHC RDW Plt Count MCH Lymph % (Auto) Lymph # Lymph # (Auto) Seg Neutrophils % Seg Neuts % (Manual) Lymphocytes % (Manual) Seg Neutrophils # Seg Neutrophils # Man Nucleated RBC % Lymphocytes # (Manual) Monocytes # (Manual) PT INR Heparin Anti-Xa Level POC ABG pO2 ABG pH ABG Hemoglobin ABG Oxyhemoglobin ABG pO2 ABG HCO3 ABG O2 Saturation ABG Base Excess ABG Potassium ABG Chloride ABG Glucose Oxyhemoglobin Sodium Potassium Chloride Carbon Dioxide BUN Creatinine Glucose POC Glucose 247 H 233 H 200 H Lactic Acid Calcium AST Phosphorus Total Protein Albumin C-Reactive Protein Arterial Blood Glucose Arterial Blood Ionized Calcium Urine WBC (Auto) Crossmatch 01/26/20 01/26/20 01/26/20 16:30 16:30 17:19 WBC RBC Hgb 7.4 L Hct 22.0 L MCHC RDW Plt Count MCH Lymph % (Auto) Lymph # Lymph # (Auto) Seg Neutrophils % Seg Neuts % (Manual) Lymphocytes % (Manual) Seg Neutrophils # Seg Neutrophils # Man Nucleated RBC % Lymphocytes # (Manual) Monocytes # (Manual) PT 18.4 H INR 1.50 H Heparin Anti-Xa Level POC ABG pO2 ABG pH ABG Hemoglobin ABG Oxyhemoglobin ABG pO2 ABG HCO3 ABG O2 Saturation ABG Base Excess ABG Potassium ABG Chloride ABG Glucose Oxyhemoglobin Sodium Potassium Chloride Carbon Dioxide BUN Creatinine Glucose POC Glucose 67 L Lactic Acid Calcium AST Phosphorus Total Protein Albumin C-Reactive Protein Arterial Blood Glucose Arterial Blood Ionized Calcium Urine WBC (Auto) Crossmatch 01/26/20 01/26/20 01/27/20 20:24 21:32 00:16 WBC RBC Hgb Hct MCHC RDW Plt Count MCH Lymph % (Auto) Lymph # Lymph # (Auto) Seg Neutrophils % Seg Neuts % (Manual) Lymphocytes % (Manual) Seg Neutrophils # Seg Neutrophils # Man Nucleated RBC % Lymphocytes # (Manual) Monocytes # (Manual) PT INR Heparin Anti-Xa Level POC ABG pO2 51.8 L ABG pH ABG Hemoglobin 8.5 L ABG Oxyhemoglobin 84.7 L ABG pO2 ABG HCO3 ABG O2 Saturation ABG Base Excess ABG Potassium ABG Chloride ABG Glucose Oxyhemoglobin Sodium Potassium Chloride Carbon Dioxide BUN Creatinine Glucose POC Glucose 162 H 141 H Lactic Acid Calcium AST Phosphorus Total Protein Albumin C-Reactive Protein Arterial Blood Glucose Arterial Blood Ionized Calcium Urine WBC (Auto) Crossmatch 01/27/20 01/27/20 01/27/20 01:42 02:18 05:57 WBC RBC Hgb Hct MCHC RDW Plt Count MCH Lymph % (Auto) Lymph # Lymph # (Auto) Seg Neutrophils % Seg Neuts % (Manual) Lymphocytes % (Manual) Seg Neutrophils # Seg Neutrophils # Man Nucleated RBC % Lymphocytes # (Manual) Monocytes # (Manual) PT INR Heparin Anti-Xa Level 2.00 H POC ABG pO2 ABG pH ABG Hemoglobin ABG Oxyhemoglobin ABG pO2 ABG HCO3 ABG O2 Saturation ABG Base Excess ABG Potassium ABG Chloride ABG Glucose Oxyhemoglobin Sodium Potassium Chloride Carbon Dioxide BUN Creatinine Glucose POC Glucose 183 H 124 H Lactic Acid Calcium AST Phosphorus Total Protein Albumin C-Reactive Protein Arterial Blood Glucose Arterial Blood Ionized Calcium Urine WBC (Auto) Crossmatch 01/27/20 01/27/20 01/27/20 06:30 06:30 12:23 WBC RBC 2.75 L Hgb 8.4 L Hct 24.9 L MCHC RDW 16.0 H Plt Count 474 H MCH Lymph % (Auto) 12.7 L Lymph # Lymph # (Auto) Seg Neutrophils % 83.2 H Seg Neuts % (Manual) Lymphocytes % (Manual) Seg Neutrophils # 8.4 H Seg Neutrophils # Man Nucleated RBC % Lymphocytes # (Manual) Monocytes # (Manual) PT INR Heparin Anti-Xa Level POC ABG pO2 ABG pH ABG Hemoglobin ABG Oxyhemoglobin ABG pO2 ABG HCO3 ABG O2 Saturation ABG Base Excess ABG Potassium ABG Chloride ABG Glucose Oxyhemoglobin Sodium Potassium 3.5 L Chloride 110.2 H Carbon Dioxide BUN Creatinine 0.4 L Glucose 101 H POC Glucose 126 H Lactic Acid Calcium 7.8 L AST Phosphorus Total Protein Albumin C-Reactive Protein Arterial Blood Glucose Arterial Blood Ionized Calcium Urine WBC (Auto) Crossmatch 01/27/20 01/27/20 01/28/20 17:31 23:40 00:00 WBC RBC Hgb Hct MCHC RDW Plt Count MCH Lymph % (Auto) Lymph # Lymph # (Auto) Seg Neutrophils % Seg Neuts % (Manual) Lymphocytes % (Manual) Seg Neutrophils # Seg Neutrophils # Man Nucleated RBC % Lymphocytes # (Manual) Monocytes # (Manual) PT INR Heparin Anti-Xa Level 2.00 H POC ABG pO2 ABG pH ABG Hemoglobin ABG Oxyhemoglobin ABG pO2 ABG HCO3 ABG O2 Saturation ABG Base Excess ABG Potassium ABG Chloride ABG Glucose Oxyhemoglobin Sodium Potassium Chloride Carbon Dioxide BUN Creatinine Glucose POC Glucose 133 H 136 H Lactic Acid Calcium AST Phosphorus Total Protein Albumin C-Reactive Protein Arterial Blood Glucose Arterial Blood Ionized Calcium Urine WBC (Auto) Crossmatch 01/28/20 01/28/20 01/28/20 04:26 04:26 05:35 WBC RBC Hgb 9.6 L Hct 28.5 L MCHC RDW Plt Count 508 H MCH Lymph % (Auto) Lymph # Lymph # (Auto) Seg Neutrophils % Seg Neuts % (Manual) Lymphocytes % (Manual) Seg Neutrophils # Seg Neutrophils # Man Nucleated RBC % Lymphocytes # (Manual) Monocytes # (Manual) PT INR Heparin Anti-Xa Level POC ABG pO2 ABG pH ABG Hemoglobin ABG Oxyhemoglobin ABG pO2 ABG HCO3 ABG O2 Saturation ABG Base Excess ABG Potassium ABG Chloride ABG Glucose Oxyhemoglobin Sodium Potassium Chloride Carbon Dioxide 19 L BUN 20 H Creatinine 0.5 L Glucose 103 H POC Glucose 135 H Lactic Acid Calcium 7.9 L AST Phosphorus Total Protein Albumin C-Reactive Protein Arterial Blood Glucose Arterial Blood Ionized Calcium Urine WBC (Auto) Crossmatch 01/28/20 01/28/20 01/28/20 08:50 11:10 11:51 WBC RBC Hgb Hct MCHC RDW Plt Count MCH Lymph % (Auto) Lymph # Lymph # (Auto) Seg Neutrophils % Seg Neuts % (Manual) Lymphocytes % (Manual) Seg Neutrophils # Seg Neutrophils # Man Nucleated RBC % Lymphocytes # (Manual) Monocytes # (Manual) PT INR Heparin Anti-Xa Level 0.74 H POC ABG pO2 67.2 L ABG pH ABG Hemoglobin 9.3 L ABG Oxyhemoglobin ABG pO2 ABG HCO3 ABG O2 Saturation ABG Base Excess ABG Potassium ABG Chloride ABG Glucose Oxyhemoglobin Sodium Potassium Chloride Carbon Dioxide BUN Creatinine Glucose POC Glucose 160 H Lactic Acid Calcium AST Phosphorus Total Protein Albumin C-Reactive Protein Arterial Blood Glucose Arterial Blood Ionized Calcium Urine WBC (Auto) Crossmatch 01/28/20 01/28/20 01/29/20 17:19 23:53 03:52 WBC RBC Hgb Hct MCHC RDW Plt Count MCH Lymph % (Auto) Lymph # Lymph # (Auto) Seg Neutrophils % Seg Neuts % (Manual) Lymphocytes % (Manual) Seg Neutrophils # Seg Neutrophils # Man Nucleated RBC % Lymphocytes # (Manual) Monocytes # (Manual) PT INR Heparin Anti-Xa Level POC ABG pO2 ABG pH 7.510 H ABG Hemoglobin 7.3 L ABG Oxyhemoglobin ABG pO2 357.0 H ABG HCO3 19.6 L ABG O2 Saturation 99.6 H ABG Base Excess -2.9 L ABG Potassium ABG Chloride ABG Glucose Oxyhemoglobin Sodium Potassium Chloride Carbon Dioxide BUN Creatinine Glucose POC Glucose 177 H 142 H Lactic Acid Calcium AST Phosphorus Total Protein Albumin C-Reactive Protein Arterial Blood Glucose Arterial Blood Ionized Calcium Urine WBC (Auto) Crossmatch 01/29/20 01/29/20 01/29/20 04:58 04:58 06:01 WBC 13.1 H RBC 2.75 L Hgb 8.6 L Hct 25.6 L MCHC RDW 17.7 H Plt Count MCH Lymph % (Auto) Lymph # Lymph # (Auto) Seg Neutrophils % Seg Neuts % (Manual) 91.0 H Lymphocytes % (Manual) 6.0 L Seg Neutrophils # Seg Neutrophils # Man 11.9 H Nucleated RBC % 1.0 H Lymphocytes # (Manual) 0.8 L Monocytes # (Manual) PT INR Heparin Anti-Xa Level POC ABG pO2 ABG pH ABG Hemoglobin ABG Oxyhemoglobin ABG pO2 ABG HCO3 ABG O2 Saturation ABG Base Excess ABG Potassium ABG Chloride ABG Glucose Oxyhemoglobin Sodium 148 H Potassium 3.5 L D Chloride 113.2 H Carbon Dioxide 21 L BUN 20 H Creatinine Glucose 137 H POC Glucose 167 H Lactic Acid Calcium 8.1 L AST Phosphorus Total Protein Albumin C-Reactive Protein Arterial Blood Glucose Arterial Blood Ionized Calcium Urine WBC (Auto) Crossmatch 01/29/20 01/29/20 01/29/20 11:45 17:52 23:49 WBC RBC Hgb Hct MCHC RDW Plt Count MCH Lymph % (Auto) Lymph # Lymph # (Auto) Seg Neutrophils % Seg Neuts % (Manual) Lymphocytes % (Manual) Seg Neutrophils # Seg Neutrophils # Man Nucleated RBC % Lymphocytes # (Manual) Monocytes # (Manual) PT INR Heparin Anti-Xa Level POC ABG pO2 ABG pH ABG Hemoglobin ABG Oxyhemoglobin ABG pO2 ABG HCO3 ABG O2 Saturation ABG Base Excess ABG Potassium ABG Chloride ABG Glucose Oxyhemoglobin Sodium Potassium Chloride Carbon Dioxide BUN Creatinine Glucose POC Glucose 185 H 226 H 141 H Lactic Acid Calcium AST Phosphorus Total Protein Albumin C-Reactive Protein Arterial Blood Glucose Arterial Blood Ionized Calcium Urine WBC (Auto) Crossmatch 01/29/20 01/30/20 01/30/20 Unknown 03:24 04:00 WBC RBC Hgb 7.8 L Hct 23.5 L MCHC RDW Plt Count MCH Lymph % (Auto) Lymph # Lymph # (Auto) Seg Neutrophils % Seg Neuts % (Manual) Lymphocytes % (Manual) Seg Neutrophils # Seg Neutrophils # Man Nucleated RBC % Lymphocytes # (Manual) Monocytes # (Manual) PT INR Heparin Anti-Xa Level POC ABG pO2 ABG pH 7.485 H ABG Hemoglobin 6.7 L ABG Oxyhemoglobin ABG pO2 102.0 H ABG HCO3 ABG O2 Saturation ABG Base Excess ABG Potassium ABG Chloride ABG Glucose Oxyhemoglobin Sodium Potassium Chloride Carbon Dioxide BUN Creatinine Glucose POC Glucose Lactic Acid Calcium AST Phosphorus Total Protein Albumin C-Reactive Protein 14.80 H Arterial Blood Glucose Arterial Blood Ionized Calcium Urine WBC (Auto) Crossmatch 01/30/20 01/30/20 01/30/20 05:50 11:15 17:07 WBC RBC Hgb Hct MCHC RDW Plt Count MCH Lymph % (Auto) Lymph # Lymph # (Auto) Seg Neutrophils % Seg Neuts % (Manual) Lymphocytes % (Manual) Seg Neutrophils # Seg Neutrophils # Man Nucleated RBC % Lymphocytes # (Manual) Monocytes # (Manual) PT INR Heparin Anti-Xa Level POC ABG pO2 ABG pH ABG Hemoglobin ABG Oxyhemoglobin ABG pO2 ABG HCO3 ABG O2 Saturation ABG Base Excess ABG Potassium ABG Chloride ABG Glucose Oxyhemoglobin Sodium Potassium Chloride Carbon Dioxide BUN Creatinine Glucose POC Glucose 122 H 207 H 124 H Lactic Acid Calcium AST Phosphorus Total Protein Albumin C-Reactive Protein Arterial Blood Glucose Arterial Blood Ionized Calcium Urine WBC (Auto) Crossmatch 01/30/20 01/31/20 01/31/20 17:08 00:10 04:52 WBC RBC Hgb Hct MCHC RDW Plt Count MCH Lymph % (Auto) Lymph # Lymph # (Auto) Seg Neutrophils % Seg Neuts % (Manual) Lymphocytes % (Manual) Seg Neutrophils # Seg Neutrophils # Man Nucleated RBC % Lymphocytes # (Manual) Monocytes # (Manual) PT INR Heparin Anti-Xa Level POC ABG pO2 ABG pH 7.504 H 7.486 H ABG Hemoglobin 7.4 L 6.2 L ABG Oxyhemoglobin ABG pO2 169.2 H 121.7 H ABG HCO3 27.1 H ABG O2 Saturation 99.1 H ABG Base Excess 3.4 H ABG Potassium ABG Chloride ABG Glucose Oxyhemoglobin Sodium Potassium Chloride Carbon Dioxide BUN Creatinine Glucose POC Glucose 191 H Lactic Acid Calcium AST Phosphorus Total Protein Albumin C-Reactive Protein Arterial Blood Glucose Arterial Blood Ionized Calcium Urine WBC (Auto) Crossmatch 01/31/20 01/31/20 01/31/20 05:37 11:59 12:40 WBC RBC 2.41 L Hgb 7.5 L Hct 22.3 L MCHC RDW 22.2 H Plt Count MCH Lymph % (Auto) Lymph # Lymph # (Auto) Seg Neutrophils % Seg Neuts % (Manual) 94.0 H Lymphocytes % (Manual) 2.0 L Seg Neutrophils # Seg Neutrophils # Man 9.4 H Nucleated RBC % Lymphocytes # (Manual) 0.2 L Monocytes # (Manual) PT INR Heparin Anti-Xa Level POC ABG pO2 ABG pH ABG Hemoglobin ABG Oxyhemoglobin ABG pO2 ABG HCO3 ABG O2 Saturation ABG Base Excess ABG Potassium ABG Chloride ABG Glucose Oxyhemoglobin Sodium Potassium Chloride Carbon Dioxide BUN Creatinine Glucose POC Glucose 175 H 220 H Lactic Acid Calcium AST Phosphorus Total Protein Albumin C-Reactive Protein Arterial Blood Glucose Arterial Blood Ionized Calcium Urine WBC (Auto) Crossmatch 01/31/20 01/31/20 01/31/20 12:40 14:40 18:18 WBC RBC Hgb Hct MCHC RDW Plt Count MCH Lymph % (Auto) Lymph # Lymph # (Auto) Seg Neutrophils % Seg Neuts % (Manual) Lymphocytes % (Manual) Seg Neutrophils # Seg Neutrophils # Man Nucleated RBC % Lymphocytes # (Manual) Monocytes # (Manual) PT INR Heparin Anti-Xa Level POC ABG pO2 124.7 H ABG pH 7.542 H ABG Hemoglobin 7.8 L ABG Oxyhemoglobin ABG pO2 ABG HCO3 ABG O2 Saturation ABG Base Excess ABG Potassium ABG Chloride ABG Glucose Oxyhemoglobin Sodium 151 H Potassium 2.1 L* D Chloride 108.9 H Carbon Dioxide BUN 22 H Creatinine Glucose 194 H POC Glucose 181 H Lactic Acid Calcium 8.1 L AST Phosphorus Total Protein 4.8 L Albumin 2.3 L C-Reactive Protein Arterial Blood Glucose Arterial Blood Ionized Calcium Urine WBC (Auto) Crossmatch 02/01/20 02/01/20 02/01/20 00:11 03:14 04:32 WBC 11.9 H RBC 2.47 L Hgb 7.6 L Hct 22.8 L MCHC RDW 22.7 H Plt Count MCH Lymph % (Auto) Lymph # Lymph # (Auto) Seg Neutrophils % Seg Neuts % (Manual) 90.0 H Lymphocytes % (Manual) 5.0 L Seg Neutrophils # Seg Neutrophils # Man 10.7 H Nucleated RBC % Lymphocytes # (Manual) 0.6 L Monocytes # (Manual) PT INR Heparin Anti-Xa Level POC ABG pO2 ABG pH 7.564 H ABG Hemoglobin 7.6 L ABG Oxyhemoglobin ABG pO2 124.1 H ABG HCO3 29.6 H ABG O2 Saturation ABG Base Excess 7.0 H ABG Potassium ABG Chloride ABG Glucose Oxyhemoglobin Sodium Potassium Chloride Carbon Dioxide BUN Creatinine Glucose POC Glucose 190 H Lactic Acid Calcium AST Phosphorus Total Protein Albumin C-Reactive Protein Arterial Blood Glucose Arterial Blood Ionized Calcium Urine WBC (Auto) Crossmatch 02/01/20 02/01/20 02/01/20 04:32 05:28 11:56 WBC RBC Hgb Hct MCHC RDW Plt Count MCH Lymph % (Auto) Lymph # Lymph # (Auto) Seg Neutrophils % Seg Neuts % (Manual) Lymphocytes % (Manual) Seg Neutrophils # Seg Neutrophils # Man Nucleated RBC % Lymphocytes # (Manual) Monocytes # (Manual) PT INR Heparin Anti-Xa Level POC ABG pO2 ABG pH ABG Hemoglobin ABG Oxyhemoglobin ABG pO2 ABG HCO3 ABG O2 Saturation ABG Base Excess ABG Potassium ABG Chloride ABG Glucose Oxyhemoglobin Sodium 149 H Potassium 2.6 L* D Chloride Carbon Dioxide 33 H BUN 23 H Creatinine 0.5 L Glucose 174 H POC Glucose 187 H 195 H Lactic Acid Calcium 8.0 L AST Phosphorus 1.60 L Total Protein Albumin C-Reactive Protein Arterial Blood Glucose Arterial Blood Ionized Calcium Urine WBC (Auto) Crossmatch 02/01/20 02/01/20 02/02/20 18:15 23:35 04:33 WBC RBC Hgb Hct MCHC RDW Plt Count MCH Lymph % (Auto) Lymph # Lymph # (Auto) Seg Neutrophils % Seg Neuts % (Manual) Lymphocytes % (Manual) Seg Neutrophils # Seg Neutrophils # Man Nucleated RBC % Lymphocytes # (Manual) Monocytes # (Manual) PT INR Heparin Anti-Xa Level POC ABG pO2 ABG pH 7.549 H ABG Hemoglobin 9.8 L ABG Oxyhemoglobin ABG pO2 ABG HCO3 ABG O2 Saturation ABG Base Excess ABG Potassium ABG Chloride ABG Glucose Oxyhemoglobin Sodium Potassium Chloride Carbon Dioxide BUN Creatinine Glucose POC Glucose 226 H 252 H Lactic Acid Calcium AST Phosphorus Total Protein Albumin C-Reactive Protein Arterial Blood Glucose Arterial Blood Ionized Calcium Urine WBC (Auto) Crossmatch 02/02/20 02/02/20 02/02/20 05:25 05:25 05:40 WBC 15.5 H RBC 2.43 L Hgb 7.6 L Hct 22.9 L MCHC RDW 23.6 H Plt Count MCH Lymph % (Auto) Lymph # Lymph # (Auto) Seg Neutrophils % Seg Neuts % (Manual) 89.0 H Lymphocytes % (Manual) 3.0 L Seg Neutrophils # Seg Neutrophils # Man 13.8 H Nucleated RBC % Lymphocytes # (Manual) 0.5 L Monocytes # (Manual) 0.9 H PT INR Heparin Anti-Xa Level POC ABG pO2 ABG pH ABG Hemoglobin ABG Oxyhemoglobin ABG pO2 ABG HCO3 ABG O2 Saturation ABG Base Excess ABG Potassium ABG Chloride ABG Glucose Oxyhemoglobin Sodium Potassium 2.6 L* Chloride Carbon Dioxide 33 H BUN 26 H Creatinine Glucose 175 H POC Glucose 181 H Lactic Acid Calcium 7.9 L AST Phosphorus Total Protein Albumin C-Reactive Protein Arterial Blood Glucose Arterial Blood Ionized Calcium Urine WBC (Auto) Crossmatch 02/02/20 02/02/20 02/02/20 11:55 14:45 17:18 WBC RBC Hgb Hct MCHC RDW Plt Count MCH Lymph % (Auto) Lymph # Lymph # (Auto) Seg Neutrophils % Seg Neuts % (Manual) Lymphocytes % (Manual) Seg Neutrophils # Seg Neutrophils # Man Nucleated RBC % Lymphocytes # (Manual) Monocytes # (Manual) PT INR Heparin Anti-Xa Level POC ABG pO2 ABG pH 7.56 H ABG Hemoglobin 7.6 L ABG Oxyhemoglobin ABG pO2 ABG HCO3 ABG O2 Saturation ABG Base Excess ABG Potassium ABG Chloride ABG Glucose Oxyhemoglobin Sodium Potassium Chloride Carbon Dioxide BUN Creatinine Glucose POC Glucose 226 H 227 H Lactic Acid Calcium AST Phosphorus Total Protein Albumin C-Reactive Protein Arterial Blood Glucose Arterial Blood Ionized Calcium Urine WBC (Auto) Crossmatch 02/02/20 02/03/20 02/03/20 20:54 00:02 05:14 WBC 18.7 H RBC 2.45 L Hgb 7.6 L Hct 23.2 L MCHC RDW 23.5 H Plt Count MCH Lymph % (Auto) Lymph # Lymph # (Auto) Seg Neutrophils % Seg Neuts % (Manual) 94.0 H Lymphocytes % (Manual) 3.0 L Seg Neutrophils # Seg Neutrophils # Man 17.6 H Nucleated RBC % Lymphocytes # (Manual) 0.6 L Monocytes # (Manual) PT INR Heparin Anti-Xa Level POC ABG pO2 ABG pH ABG Hemoglobin ABG Oxyhemoglobin ABG pO2 ABG HCO3 ABG O2 Saturation ABG Base Excess ABG Potassium ABG Chloride ABG Glucose Oxyhemoglobin Sodium Potassium 3.2 L D Chloride Carbon Dioxide BUN Creatinine Glucose POC Glucose 204 H Lactic Acid Calcium AST Phosphorus Total Protein Albumin C-Reactive Protein Arterial Blood Glucose Arterial Blood Ionized Calcium Urine WBC (Auto) Crossmatch 02/03/20 02/03/20 02/03/20 05:14 05:14 05:20 WBC RBC Hgb Hct MCHC RDW Plt Count MCH Lymph % (Auto) Lymph # Lymph # (Auto) Seg Neutrophils % Seg Neuts % (Manual) Lymphocytes % (Manual) Seg Neutrophils # Seg Neutrophils # Man Nucleated RBC % Lymphocytes # (Manual) Monocytes # (Manual) PT INR Heparin Anti-Xa Level POC ABG pO2 ABG pH ABG Hemoglobin ABG Oxyhemoglobin ABG pO2 ABG HCO3 ABG O2 Saturation ABG Base Excess ABG Potassium ABG Chloride ABG Glucose Oxyhemoglobin Sodium Potassium 3.1 L Chloride Carbon Dioxide 33 H BUN 29 H Creatinine 0.5 L Glucose 160 H POC Glucose 146 H Lactic Acid Calcium 7.9 L AST Phosphorus 2.30 L Total Protein 4.8 L Albumin 2.4 L C-Reactive Protein Arterial Blood Glucose Arterial Blood Ionized Calcium Urine WBC (Auto) Crossmatch 02/03/20 02/03/20 02/03/20 12:35 18:14 23:26 WBC RBC Hgb Hct MCHC RDW Plt Count MCH Lymph % (Auto) Lymph # Lymph # (Auto) Seg Neutrophils % Seg Neuts % (Manual) Lymphocytes % (Manual) Seg Neutrophils # Seg Neutrophils # Man Nucleated RBC % Lymphocytes # (Manual) Monocytes # (Manual) PT INR Heparin Anti-Xa Level POC ABG pO2 ABG pH ABG Hemoglobin ABG Oxyhemoglobin ABG pO2 ABG HCO3 ABG O2 Saturation ABG Base Excess ABG Potassium ABG Chloride ABG Glucose Oxyhemoglobin Sodium Potassium Chloride Carbon Dioxide BUN Creatinine Glucose POC Glucose 219 H 248 H 173 H Lactic Acid Calcium AST Phosphorus Total Protein Albumin C-Reactive Protein Arterial Blood Glucose Arterial Blood Ionized Calcium Urine WBC (Auto) Crossmatch 02/04/20 02/04/20 02/04/20 05:34 05:36 06:51 WBC RBC Hgb Hct MCHC RDW Plt Count MCH Lymph % (Auto) Lymph # Lymph # (Auto) Seg Neutrophils % Seg Neuts % (Manual) Lymphocytes % (Manual) Seg Neutrophils # Seg Neutrophils # Man Nucleated RBC % Lymphocytes # (Manual) Monocytes # (Manual) PT INR Heparin Anti-Xa Level POC ABG pO2 ABG pH ABG Hemoglobin ABG Oxyhemoglobin ABG pO2 ABG HCO3 ABG O2 Saturation ABG Base Excess ABG Potassium ABG Chloride ABG Glucose Oxyhemoglobin Sodium Potassium Chloride Carbon Dioxide BUN Creatinine Glucose POC Glucose 56 L 64 L 127 H Lactic Acid Calcium AST Phosphorus Total Protein Albumin C-Reactive Protein Arterial Blood Glucose Arterial Blood Ionized Calcium Urine WBC (Auto) Crossmatch 02/04/20 02/04/20 02/04/20 11:57 13:42 13:53 WBC 19.2 H RBC 2.48 L Hgb 7.8 L Hct 23.5 L MCHC RDW 24.2 H Plt Count MCH Lymph % (Auto) Lymph # Lymph # (Auto) Seg Neutrophils % Seg Neuts % (Manual) 97.0 H Lymphocytes % (Manual) 2.0 L Seg Neutrophils # Seg Neutrophils # Man 18.6 H Nucleated RBC % Lymphocytes # (Manual) 0.4 L Monocytes # (Manual) PT INR Heparin Anti-Xa Level POC ABG pO2 118.2 H ABG pH 7.525 H ABG Hemoglobin 8.7 L ABG Oxyhemoglobin ABG pO2 ABG HCO3 ABG O2 Saturation ABG Base Excess ABG Potassium 2.8 L ABG Chloride ABG Glucose 185 H Oxyhemoglobin Sodium Potassium Chloride Carbon Dioxide BUN Creatinine Glucose POC Glucose 224 H Lactic Acid Calcium AST Phosphorus Total Protein Albumin C-Reactive Protein Arterial Blood Glucose 185 H Arterial Blood Ionized Calcium 4.5 L Urine WBC (Auto) Crossmatch 02/04/20 02/04/20 02/04/20 13:53 18:15 23:35 WBC RBC Hgb Hct MCHC RDW Plt Count MCH Lymph % (Auto) Lymph # Lymph # (Auto) Seg Neutrophils % Seg Neuts % (Manual) Lymphocytes % (Manual) Seg Neutrophils # Seg Neutrophils # Man Nucleated RBC % Lymphocytes # (Manual) Monocytes # (Manual) PT INR Heparin Anti-Xa Level POC ABG pO2 ABG pH ABG Hemoglobin ABG Oxyhemoglobin ABG pO2 ABG HCO3 ABG O2 Saturation ABG Base Excess ABG Potassium ABG Chloride ABG Glucose Oxyhemoglobin Sodium 147 H Potassium 2.8 L* Chloride Carbon Dioxide 38 H BUN 33 H Creatinine 0.5 L Glucose 202 H POC Glucose 215 H 197 H Lactic Acid Calcium AST Phosphorus Total Protein Albumin C-Reactive Protein Arterial Blood Glucose Arterial Blood Ionized Calcium Urine WBC (Auto) Crossmatch 02/05/20 02/05/20 02/05/20 01:03 04:00 04:00 WBC 26.7 H RBC 2.59 L Hgb 8.1 L Hct 24.6 L MCHC RDW 24.1 H Plt Count MCH Lymph % (Auto) 1.6 L Lymph # Lymph # (Auto) 0.4 L Seg Neutrophils % Seg Neuts % (Manual) Lymphocytes % (Manual) Seg Neutrophils # 25.9 H Seg Neutrophils # Man Nucleated RBC % Lymphocytes # (Manual) Monocytes # (Manual) PT INR Heparin Anti-Xa Level POC ABG pO2 ABG pH ABG Hemoglobin 7.1 L ABG Oxyhemoglobin ABG pO2 50.7 L ABG HCO3 29.6 H ABG O2 Saturation 82.7 L ABG Base Excess 4.8 H ABG Potassium ABG Chloride ABG Glucose Oxyhemoglobin 81.0 L Sodium 146 H Potassium Chloride Carbon Dioxide 32 H BUN 35 H Creatinine 0.5 L Glucose 226 H POC Glucose Lactic Acid Calcium AST Phosphorus Total Protein 5.1 L Albumin 2.2 L C-Reactive Protein Arterial Blood Glucose Arterial Blood Ionized Calcium Urine WBC (Auto) Crossmatch 02/05/20 02/05/20 02/06/20 05:32 17:56 00:19 WBC RBC Hgb Hct MCHC RDW Plt Count MCH Lymph % (Auto) Lymph # Lymph # (Auto) Seg Neutrophils % Seg Neuts % (Manual) Lymphocytes % (Manual) Seg Neutrophils # Seg Neutrophils # Man Nucleated RBC % Lymphocytes # (Manual) Monocytes # (Manual) PT INR Heparin Anti-Xa Level POC ABG pO2 ABG pH ABG Hemoglobin ABG Oxyhemoglobin ABG pO2 ABG HCO3 ABG O2 Saturation ABG Base Excess ABG Potassium ABG Chloride ABG Glucose Oxyhemoglobin Sodium Potassium Chloride Carbon Dioxide BUN Creatinine Glucose POC Glucose 239 H 175 H 309 H Lactic Acid Calcium AST Phosphorus Total Protein Albumin C-Reactive Protein Arterial Blood Glucose Arterial Blood Ionized Calcium Urine WBC (Auto) Crossmatch 02/06/20 02/06/20 02/06/20 04:26 04:27 05:11 WBC RBC Hgb Hct MCHC RDW Plt Count MCH Lymph % (Auto) Lymph # Lymph # (Auto) Seg Neutrophils % Seg Neuts % (Manual) Lymphocytes % (Manual) Seg Neutrophils # Seg Neutrophils # Man Nucleated RBC % Lymphocytes # (Manual) Monocytes # (Manual) PT INR Heparin Anti-Xa Level POC ABG pO2 175.3 H 157.2 H ABG pH 7.502 H 7.551 H ABG Hemoglobin 10.8 L 7.3 L ABG Oxyhemoglobin 98.3 H ABG pO2 ABG HCO3 ABG O2 Saturation ABG Base Excess ABG Potassium 3.3 L ABG Chloride 109.0 H ABG Glucose 148 H Oxyhemoglobin Sodium 148 H Potassium 3.0 L Chloride 107.3 H Carbon Dioxide 33 H BUN 33 H Creatinine 0.5 L Glucose 283 H POC Glucose Lactic Acid Calcium 7.9 L AST Phosphorus Total Protein 3.6 L D Albumin 1.2 L C-Reactive Protein Arterial Blood Glucose 148 H Arterial Blood Ionized Calcium Urine WBC (Auto) Crossmatch 02/06/20 02/06/20 02/06/20 05:40 08:45 11:52 WBC 16.3 H RBC 2.12 L Hgb 6.6 L Hct 20.3 L MCHC RDW 24.4 H Plt Count MCH Lymph % (Auto) Lymph # Lymph # (Auto) Seg Neutrophils % Seg Neuts % (Manual) 98.0 H Lymphocytes % (Manual) 1.0 L Seg Neutrophils # Seg Neutrophils # Man 16.0 H Nucleated RBC % Lymphocytes # (Manual) 0.2 L Monocytes # (Manual) PT INR Heparin Anti-Xa Level POC ABG pO2 ABG pH ABG Hemoglobin ABG Oxyhemoglobin ABG pO2 ABG HCO3 ABG O2 Saturation ABG Base Excess ABG Potassium ABG Chloride ABG Glucose Oxyhemoglobin Sodium Potassium Chloride Carbon Dioxide BUN Creatinine Glucose POC Glucose 347 H 132 H Lactic Acid Calcium AST Phosphorus Total Protein Albumin C-Reactive Protein Arterial Blood Glucose Arterial Blood Ionized Calcium Urine WBC (Auto) Crossmatch 02/06/20 02/07/20 02/07/20 18:26 00:08 05:41 WBC RBC Hgb Hct MCHC RDW Plt Count MCH Lymph % (Auto) Lymph # Lymph # (Auto) Seg Neutrophils % Seg Neuts % (Manual) Lymphocytes % (Manual) Seg Neutrophils # Seg Neutrophils # Man Nucleated RBC % Lymphocytes # (Manual) Monocytes # (Manual) PT INR Heparin Anti-Xa Level POC ABG pO2 ABG pH ABG Hemoglobin ABG Oxyhemoglobin ABG pO2 ABG HCO3 ABG O2 Saturation ABG Base Excess ABG Potassium ABG Chloride ABG Glucose Oxyhemoglobin Sodium Potassium Chloride Carbon Dioxide BUN Creatinine Glucose POC Glucose 114 H 111 H 164 H Lactic Acid Calcium AST Phosphorus Total Protein Albumin C-Reactive Protein Arterial Blood Glucose Arterial Blood Ionized Calcium Urine WBC (Auto) Crossmatch 02/07/20 02/07/20 02/07/20 11:49 17:56 23:27 WBC RBC Hgb Hct MCHC RDW Plt Count MCH Lymph % (Auto) Lymph # Lymph # (Auto) Seg Neutrophils % Seg Neuts % (Manual) Lymphocytes % (Manual) Seg Neutrophils # Seg Neutrophils # Man Nucleated RBC % Lymphocytes # (Manual) Monocytes # (Manual) PT INR Heparin Anti-Xa Level POC ABG pO2 ABG pH ABG Hemoglobin ABG Oxyhemoglobin ABG pO2 ABG HCO3 ABG O2 Saturation ABG Base Excess ABG Potassium ABG Chloride ABG Glucose Oxyhemoglobin Sodium Potassium Chloride Carbon Dioxide BUN Creatinine Glucose POC Glucose 146 H 140 H 164 H Lactic Acid Calcium AST Phosphorus Total Protein Albumin C-Reactive Protein Arterial Blood Glucose Arterial Blood Ionized Calcium Urine WBC (Auto) Crossmatch 02/08/20 02/08/20 02/08/20 03:55 04:46 04:46 WBC RBC 2.30 L Hgb 7.3 L Hct 22.0 L MCHC RDW 23.9 H Plt Count MCH Lymph % (Auto) 8.5 L Lymph # Lymph # (Auto) 0.8 L Seg Neutrophils % 87.6 H Seg Neuts % (Manual) Lymphocytes % (Manual) Seg Neutrophils # 8.7 H Seg Neutrophils # Man Nucleated RBC % Lymphocytes # (Manual) Monocytes # (Manual) PT INR Heparin Anti-Xa Level POC ABG pO2 112.8 H ABG pH 7.511 H ABG Hemoglobin 7.8 L ABG Oxyhemoglobin ABG pO2 ABG HCO3 ABG O2 Saturation ABG Base Excess ABG Potassium 2.9 L ABG Chloride ABG Glucose 112 H Oxyhemoglobin Sodium Potassium 3.1 L Chloride Carbon Dioxide 31 H BUN 29 H Creatinine 0.3 L Glucose 108 H POC Glucose Lactic Acid Calcium AST Phosphorus Total Protein Albumin C-Reactive Protein Arterial Blood Glucose 112 H Arterial Blood Ionized Calcium Urine WBC (Auto) Crossmatch 02/08/20 02/08/20 02/08/20 05:31 10:15 12:10 WBC RBC Hgb Hct MCHC RDW Plt Count MCH Lymph % (Auto) Lymph # Lymph # (Auto) Seg Neutrophils % Seg Neuts % (Manual) Lymphocytes % (Manual) Seg Neutrophils # Seg Neutrophils # Man Nucleated RBC % Lymphocytes # (Manual) Monocytes # (Manual) PT INR Heparin Anti-Xa Level POC ABG pO2 ABG pH ABG Hemoglobin ABG Oxyhemoglobin ABG pO2 ABG HCO3 ABG O2 Saturation ABG Base Excess ABG Potassium ABG Chloride ABG Glucose Oxyhemoglobin Sodium Potassium Chloride Carbon Dioxide BUN Creatinine Glucose POC Glucose 117 H 164 H 170 H Lactic Acid Calcium AST Phosphorus Total Protein Albumin C-Reactive Protein Arterial Blood Glucose Arterial Blood Ionized Calcium Urine WBC (Auto) Crossmatch 02/08/20 02/08/20 02/09/20 12:23 23:50 03:04 WBC RBC Hgb Hct MCHC RDW Plt Count MCH Lymph % (Auto) Lymph # Lymph # (Auto) Seg Neutrophils % Seg Neuts % (Manual) Lymphocytes % (Manual) Seg Neutrophils # Seg Neutrophils # Man Nucleated RBC % Lymphocytes # (Manual) Monocytes # (Manual) PT INR Heparin Anti-Xa Level POC ABG pO2 ABG pH 7.501 H ABG Hemoglobin 7.5 L ABG Oxyhemoglobin ABG pO2 ABG HCO3 ABG O2 Saturation ABG Base Excess ABG Potassium ABG Chloride ABG Glucose 143 H Oxyhemoglobin Sodium Potassium Chloride Carbon Dioxide BUN Creatinine Glucose POC Glucose 164 H 126 H Lactic Acid Calcium AST Phosphorus Total Protein Albumin C-Reactive Protein Arterial Blood Glucose 143 H Arterial Blood Ionized Calcium Urine WBC (Auto) Crossmatch 02/09/20 02/09/20 02/09/20 05:57 08:00 12:39 WBC RBC Hgb Hct MCHC RDW Plt Count MCH Lymph % (Auto) Lymph # Lymph # (Auto) Seg Neutrophils % Seg Neuts % (Manual) Lymphocytes % (Manual) Seg Neutrophils # Seg Neutrophils # Man Nucleated RBC % Lymphocytes # (Manual) Monocytes # (Manual) PT INR Heparin Anti-Xa Level POC ABG pO2 ABG pH ABG Hemoglobin ABG Oxyhemoglobin ABG pO2 ABG HCO3 ABG O2 Saturation ABG Base Excess ABG Potassium ABG Chloride ABG Glucose Oxyhemoglobin Sodium Potassium 3.3 L Chloride Carbon Dioxide 34 H BUN 27 H Creatinine 0.4 L Glucose 127 H POC Glucose 160 H 154 H Lactic Acid Calcium 8.2 L AST Phosphorus Total Protein Albumin C-Reactive Protein Arterial Blood Glucose Arterial Blood Ionized Calcium Urine WBC (Auto) Crossmatch 02/09/20 02/09/20 02/09/20 18:17 23:43 Unknown WBC RBC 2.15 L Hgb 7.0 L Hct 20.8 L MCHC RDW 23.3 H Plt Count MCH 33 H Lymph % (Auto) Lymph # Lymph # (Auto) Seg Neutrophils % Seg Neuts % (Manual) Lymphocytes % (Manual) Seg Neutrophils # Seg Neutrophils # Man Nucleated RBC % Lymphocytes # (Manual) Monocytes # (Manual) PT INR Heparin Anti-Xa Level POC ABG pO2 ABG pH ABG Hemoglobin ABG Oxyhemoglobin ABG pO2 ABG HCO3 ABG O2 Saturation ABG Base Excess ABG Potassium ABG Chloride ABG Glucose Oxyhemoglobin Sodium Potassium Chloride Carbon Dioxide BUN Creatinine Glucose POC Glucose 152 H 177 H Lactic Acid Calcium AST Phosphorus Total Protein Albumin C-Reactive Protein Arterial Blood Glucose Arterial Blood Ionized Calcium Urine WBC (Auto) Crossmatch 02/10/20 02/10/20 02/10/20 04:38 05:24 11:44 WBC RBC Hgb Hct MCHC RDW Plt Count MCH Lymph % (Auto) Lymph # Lymph # (Auto) Seg Neutrophils % Seg Neuts % (Manual) Lymphocytes % (Manual) Seg Neutrophils # Seg Neutrophils # Man Nucleated RBC % Lymphocytes # (Manual) Monocytes # (Manual) PT INR Heparin Anti-Xa Level POC ABG pO2 ABG pH 7.502 H ABG Hemoglobin 6.2 L ABG Oxyhemoglobin ABG pO2 136.0 H ABG HCO3 29.3 H ABG O2 Saturation ABG Base Excess 5.7 H ABG Potassium ABG Chloride ABG Glucose Oxyhemoglobin Sodium Potassium Chloride Carbon Dioxide BUN Creatinine Glucose POC Glucose 113 H 176 H Lactic Acid Calcium AST Phosphorus Total Protein Albumin C-Reactive Protein Arterial Blood Glucose Arterial Blood Ionized Calcium Urine WBC (Auto) Crossmatch 02/10/20 02/11/20 02/11/20 23:42 03:43 04:12 WBC RBC 2.12 L Hgb 6.9 L Hct 20.6 L MCHC RDW 23.4 H Plt Count MCH 33 H Lymph % (Auto) Lymph # Lymph # (Auto) Seg Neutrophils % 84.7 H Seg Neuts % (Manual) 83.0 H Lymphocytes % (Manual) 11.0 L Seg Neutrophils # Seg Neutrophils # Man Nucleated RBC % Lymphocytes # (Manual) 1.0 L Monocytes # (Manual) PT INR Heparin Anti-Xa Level POC ABG pO2 112.6 H ABG pH 7.480 H ABG Hemoglobin 7.2 L ABG Oxyhemoglobin ABG pO2 ABG HCO3 ABG O2 Saturation ABG Base Excess ABG Potassium ABG Chloride ABG Glucose 154 H Oxyhemoglobin Sodium Potassium Chloride Carbon Dioxide BUN Creatinine Glucose POC Glucose 149 H Lactic Acid Calcium AST Phosphorus Total Protein Albumin C-Reactive Protein Arterial Blood Glucose 154 H Arterial Blood Ionized Calcium Urine WBC (Auto) Crossmatch 02/11/20 02/11/20 02/11/20 04:12 05:50 08:22 WBC RBC Hgb Hct MCHC RDW Plt Count MCH Lymph % (Auto) Lymph # Lymph # (Auto) Seg Neutrophils % Seg Neuts % (Manual) Lymphocytes % (Manual) Seg Neutrophils # Seg Neutrophils # Man Nucleated RBC % Lymphocytes # (Manual) Monocytes # (Manual) PT INR Heparin Anti-Xa Level POC ABG pO2 ABG pH ABG Hemoglobin ABG Oxyhemoglobin ABG pO2 ABG HCO3 ABG O2 Saturation ABG Base Excess ABG Potassium ABG Chloride ABG Glucose Oxyhemoglobin Sodium 146 H Potassium Chloride Carbon Dioxide BUN 24 H Creatinine 0.4 L Glucose 168 H POC Glucose 190 H Lactic Acid Calcium 8.0 L AST Phosphorus Total Protein Albumin C-Reactive Protein Arterial Blood Glucose Arterial Blood Ionized Calcium Urine WBC (Auto) Crossmatch See Detail 02/11/20 02/11/20 02/11/20 11:41 17:33 23:40 WBC RBC Hgb Hct MCHC RDW Plt Count MCH Lymph % (Auto) Lymph # Lymph # (Auto) Seg Neutrophils % Seg Neuts % (Manual) Lymphocytes % (Manual) Seg Neutrophils # Seg Neutrophils # Man Nucleated RBC % Lymphocytes # (Manual) Monocytes # (Manual) PT INR Heparin Anti-Xa Level POC ABG pO2 ABG pH ABG Hemoglobin ABG Oxyhemoglobin ABG pO2 ABG HCO3 ABG O2 Saturation ABG Base Excess ABG Potassium ABG Chloride ABG Glucose Oxyhemoglobin Sodium Potassium Chloride Carbon Dioxide BUN Creatinine Glucose POC Glucose 260 H 132 H 54 L Lactic Acid Calcium AST Phosphorus Total Protein Albumin C-Reactive Protein Arterial Blood Glucose Arterial Blood Ionized Calcium Urine WBC (Auto) Crossmatch 02/12/20 02/12/20 02/12/20 05:16 06:45 11:48 WBC RBC Hgb 8.6 L Hct 25.2 L MCHC RDW Plt Count MCH Lymph % (Auto) Lymph # Lymph # (Auto) Seg Neutrophils % Seg Neuts % (Manual) Lymphocytes % (Manual) Seg Neutrophils # Seg Neutrophils # Man Nucleated RBC % Lymphocytes # (Manual) Monocytes # (Manual) PT INR Heparin Anti-Xa Level POC ABG pO2 ABG pH ABG Hemoglobin ABG Oxyhemoglobin ABG pO2 ABG HCO3 ABG O2 Saturation ABG Base Excess ABG Potassium ABG Chloride ABG Glucose Oxyhemoglobin Sodium Potassium Chloride Carbon Dioxide BUN Creatinine Glucose POC Glucose 127 H 163 H Lactic Acid Calcium AST Phosphorus Total Protein Albumin C-Reactive Protein Arterial Blood Glucose Arterial Blood Ionized Calcium Urine WBC (Auto) Crossmatch 02/12/20 02/12/20 02/13/20 17:25 23:53 04:30 WBC RBC Hgb Hct MCHC RDW Plt Count MCH Lymph % (Auto) Lymph # Lymph # (Auto) Seg Neutrophils % Seg Neuts % (Manual) Lymphocytes % (Manual) Seg Neutrophils # Seg Neutrophils # Man Nucleated RBC % Lymphocytes # (Manual) Monocytes # (Manual) PT INR Heparin Anti-Xa Level POC ABG pO2 ABG pH 7.463 H ABG Hemoglobin ABG Oxyhemoglobin ABG pO2 98.4 H ABG HCO3 27.7 H ABG O2 Saturation ABG Base Excess 3.7 H ABG Potassium ABG Chloride ABG Glucose Oxyhemoglobin Sodium Potassium Chloride Carbon Dioxide BUN Creatinine Glucose POC Glucose 152 H 140 H Lactic Acid Calcium AST Phosphorus Total Protein Albumin C-Reactive Protein Arterial Blood Glucose Arterial Blood Ionized Calcium Urine WBC (Auto) Crossmatch 02/13/20 02/13/20 02/13/20 04:45 04:45 05:19 WBC RBC 2.73 L Hgb 8.7 L Hct 25.6 L MCHC RDW 21.3 H Plt Count MCH Lymph % (Auto) 12.0 L Lymph # Lymph # (Auto) 1.0 L Seg Neutrophils % 82.5 H Seg Neuts % (Manual) Lymphocytes % (Manual) Seg Neutrophils # Seg Neutrophils # Man Nucleated RBC % Lymphocytes # (Manual) Monocytes # (Manual) PT INR Heparin Anti-Xa Level POC ABG pO2 ABG pH ABG Hemoglobin ABG Oxyhemoglobin ABG pO2 ABG HCO3 ABG O2 Saturation ABG Base Excess ABG Potassium ABG Chloride ABG Glucose Oxyhemoglobin Sodium Potassium 3.4 L Chloride Carbon Dioxide 31 H BUN 24 H Creatinine 0.3 L Glucose 122 H POC Glucose 127 H Lactic Acid Calcium 8.0 L AST Phosphorus Total Protein 4.2 L Albumin 2.0 L C-Reactive Protein Arterial Blood Glucose Arterial Blood Ionized Calcium Urine WBC (Auto) Crossmatch 02/13/20 02/14/20 02/14/20 23:08 04:26 04:26 WBC RBC 2.74 L Hgb 8.7 L Hct 25.8 L MCHC RDW 21.3 H Plt Count MCH Lymph % (Auto) 13.2 L Lymph # Lymph # (Auto) Seg Neutrophils % 81.4 H Seg Neuts % (Manual) Lymphocytes % (Manual) Seg Neutrophils # 8.4 H Seg Neutrophils # Man Nucleated RBC % Lymphocytes # (Manual) Monocytes # (Manual) PT INR Heparin Anti-Xa Level POC ABG pO2 ABG pH ABG Hemoglobin ABG Oxyhemoglobin ABG pO2 ABG HCO3 ABG O2 Saturation ABG Base Excess ABG Potassium ABG Chloride ABG Glucose Oxyhemoglobin Sodium Potassium 3.4 L Chloride 107.6 H Carbon Dioxide BUN 20 H Creatinine 0.3 L Glucose 170 H POC Glucose 148 H Lactic Acid Calcium 8.2 L AST Phosphorus Total Protein Albumin C-Reactive Protein Arterial Blood Glucose Arterial Blood Ionized Calcium Urine WBC (Auto) Crossmatch 02/14/20 02/14/20 02/14/20 05:05 12:08 17:37 WBC RBC Hgb Hct MCHC RDW Plt Count MCH Lymph % (Auto) Lymph # Lymph # (Auto) Seg Neutrophils % Seg Neuts % (Manual) Lymphocytes % (Manual) Seg Neutrophils # Seg Neutrophils # Man Nucleated RBC % Lymphocytes # (Manual) Monocytes # (Manual) PT INR Heparin Anti-Xa Level POC ABG pO2 ABG pH ABG Hemoglobin ABG Oxyhemoglobin ABG pO2 ABG HCO3 ABG O2 Saturation ABG Base Excess ABG Potassium ABG Chloride ABG Glucose Oxyhemoglobin Sodium Potassium Chloride Carbon Dioxide BUN Creatinine Glucose POC Glucose 182 H 156 H 144 H Lactic Acid Calcium AST Phosphorus Total Protein Albumin C-Reactive Protein Arterial Blood Glucose Arterial Blood Ionized Calcium Urine WBC (Auto) Crossmatch 02/14/20 02/15/20 02/15/20 23:36 05:44 12:11 WBC RBC Hgb Hct MCHC RDW Plt Count MCH Lymph % (Auto) Lymph # Lymph # (Auto) Seg Neutrophils % Seg Neuts % (Manual) Lymphocytes % (Manual) Seg Neutrophils # Seg Neutrophils # Man Nucleated RBC % Lymphocytes # (Manual) Monocytes # (Manual) PT INR Heparin Anti-Xa Level POC ABG pO2 ABG pH ABG Hemoglobin ABG Oxyhemoglobin ABG pO2 ABG HCO3 ABG O2 Saturation ABG Base Excess ABG Potassium ABG Chloride ABG Glucose Oxyhemoglobin Sodium Potassium Chloride Carbon Dioxide BUN Creatinine Glucose POC Glucose 183 H 203 H 140 H Lactic Acid Calcium AST Phosphorus Total Protein Albumin C-Reactive Protein Arterial Blood Glucose Arterial Blood Ionized Calcium Urine WBC (Auto) Crossmatch 02/15/20 02/16/20 02/16/20 17:23 00:12 05:09 WBC RBC Hgb 8.8 L Hct 26.0 L MCHC RDW Plt Count MCH Lymph % (Auto) Lymph # Lymph # (Auto) Seg Neutrophils % Seg Neuts % (Manual) Lymphocytes % (Manual) Seg Neutrophils # Seg Neutrophils # Man Nucleated RBC % Lymphocytes # (Manual) Monocytes # (Manual) PT INR Heparin Anti-Xa Level POC ABG pO2 ABG pH ABG Hemoglobin ABG Oxyhemoglobin ABG pO2 ABG HCO3 ABG O2 Saturation ABG Base Excess ABG Potassium ABG Chloride ABG Glucose Oxyhemoglobin Sodium Potassium Chloride Carbon Dioxide BUN Creatinine Glucose POC Glucose 170 H 133 H Lactic Acid Calcium AST Phosphorus Total Protein Albumin C-Reactive Protein Arterial Blood Glucose Arterial Blood Ionized Calcium Urine WBC (Auto) Crossmatch 02/16/20 02/16/20 02/16/20 05:09 05:21 12:22 WBC RBC Hgb Hct MCHC RDW Plt Count MCH Lymph % (Auto) Lymph # Lymph # (Auto) Seg Neutrophils % Seg Neuts % (Manual) Lymphocytes % (Manual) Seg Neutrophils # Seg Neutrophils # Man Nucleated RBC % Lymphocytes # (Manual) Monocytes # (Manual) PT INR Heparin Anti-Xa Level POC ABG pO2 ABG pH ABG Hemoglobin ABG Oxyhemoglobin ABG pO2 ABG HCO3 ABG O2 Saturation ABG Base Excess ABG Potassium ABG Chloride ABG Glucose Oxyhemoglobin Sodium Potassium Chloride Carbon Dioxide 31 H BUN 18 H Creatinine 0.3 L Glucose 152 H POC Glucose 160 H 138 H Lactic Acid Calcium 7.9 L AST Phosphorus Total Protein Albumin C-Reactive Protein Arterial Blood Glucose Arterial Blood Ionized Calcium Urine WBC (Auto) Crossmatch 02/16/20 02/17/20 02/17/20 16:35 00:01 05:22 WBC RBC Hgb Hct MCHC RDW Plt Count MCH Lymph % (Auto) Lymph # Lymph # (Auto) Seg Neutrophils % Seg Neuts % (Manual) Lymphocytes % (Manual) Seg Neutrophils # Seg Neutrophils # Man Nucleated RBC % Lymphocytes # (Manual) Monocytes # (Manual) PT INR Heparin Anti-Xa Level POC ABG pO2 ABG pH ABG Hemoglobin ABG Oxyhemoglobin ABG pO2 ABG HCO3 ABG O2 Saturation ABG Base Excess ABG Potassium ABG Chloride ABG Glucose Oxyhemoglobin Sodium Potassium Chloride Carbon Dioxide BUN Creatinine Glucose POC Glucose 142 H 173 H 126 H Lactic Acid Calcium AST Phosphorus Total Protein Albumin C-Reactive Protein Arterial Blood Glucose Arterial Blood Ionized Calcium Urine WBC (Auto) Crossmatch Chest x-ray: image reviewed Additional Studies: Venous dopplers Superficial venous thrombosis in right cephalic vein Allied health notes reviewed: RT
[2020-02-17] MEDS ORDERED: oxyCODONE /ACETAMINOPHEN 5-325MG TAB PO PRN (13:28)
[2020-02-17] MEDS: DONEPEZIL 10 MG TAB PO SCH (21:03)
[2020-02-17] MEDS: MIRTAZAPINE 15 MG TAB PO SCH (21:03)
[2020-02-17] MEDS: traZODone 50 MG TAB PO SCH (21:03)
[2020-02-18] MEDS: INSULIN REGULAR, HUMAN 100 UNIT/ML 3ML VIAL SUB-Q SCH ×4 (00:12→18:22)
[2020-02-18] MEDS: PIPERACIL/TAZOBACTA 4.5/NS 100 4.5 GM/100 ML VIAL IV SCH ×3 (05:19→21:11)
[2020-02-18 06:03] LABS: Hematocrit 30.9 % (30.3-42.9); Hemoglobin 10.4 gm/dl (10.1-14.3); Mean Corpuscular HGB Conc 34 % (30-34); Mean Corpuscular Volume 95 fl (79-97); Platelet Count 455 K/mm3 (140-440); Red Blood Count 3.24 M/mm3 (3.65-5.03)
[2020-02-18 06:11] LABS: Blood Urea Nitrogen 17 mg/dL (7-17); Calcium 8.6 mg/dL (8.4-10.2); Hemolysis Index 13
[2020-02-18 06:14] LABS: Red Cell Distribution Width 20.1 % (13.2-15.2)
[2020-02-18 06:26] LABS: BUN/Creatinine Ratio 57
[2020-02-18] MEDS: FAMOTIDINE 20 MG TAB PO SCH ×2 (10:13→21:12)
[2020-02-18] MEDS: MULTIVITAMINS 5 ML ORAL LIQUID PO SCH (10:13)
[2020-02-18] MEDS: FERROUS SULFATE 308 MG (62mg Elemental Iron) / 7 ML ELIXIR FEEDTUBE SCH (10:13)
[2020-02-18] MEDS: HEPARIN 5,000 UNIT/1 ML VIAL SUB-Q SCH ×2 (10:13→21:12)
--- NOTE | 2020-02-18 10:14 | Progress Note ---
Assessment and Plan Severe sepsis with shock. Left lung atelectasis. Left pleural effusion. Acute hypoxemic respiratory failure. Acute possibly on chronic encephalopathy. History of diabetes. Urinary tract infection. History of pulmonary embolism, diagnosed several months ago. Sacral decubitus ulcer. Dementia. Anemia that is normocytic. - add scopolamine for secretion control - continue to rest on AC qhs for now - begin daytime t-piece trials in am as tolerated - continue care as below otherwise; - complete AB's per ID rec's (Zosyn) - continue to wean supplemental oxygen for target O2 sat's > 92% acutely - VAP bundle addressed - continue lung protective strategies - continue bronchodilators with routine trach care and pulmonary hygiene per RT - wean per pulmonary driven protocols otherwise - continue accuchecks with glycemic control per SSI (While critically ill target blood glucose of 140-180 mg/dL; avoid hypoglycemia) - sedation prn for target RASS 0 to -1 - avoid nephrotoxins, renally dose all medications - continue to avoid benzodiazepine's, reduce the possibility of delirium - prn analgesia per CPOT score - Maintenance of sleep-wake cycle, avoid delirium - continue enteral nutritional support at goal rate as tolerated - G.I. & VTE prophylaxis with famotidine and heparin - PT/OT/ROM exercises - continue mobility protocols for pressure ulcer prophylaxis - Monitor hemodynamics closely - continue other care per attending / other consultants - discharge planning ongoing concurrently .... Re-evaluate in am & prn CONDITION: CRITICAL PROGNOSIS: GUARDED CODE STATUS: FULL CODE The high probability of a clinically significant, sudden or life-threatening deterioration of the [respiratory, cardiovascular & neurologic] system(s) required my full and direct attention, intervention and personal management. The aggregate critical care time was [32] minutes without overlap. Time includes spent on; [x] Data Review and interpretation [x] Patient assessment and monitoring of vital signs [x] Documentation [x] Medication orders and management Subjective Date of service: 02/18/20 Principal diagnosis: Septic Shock; S/P Cardiac Arrest; Ac. hypoxemic resp failure; UTI Interval history: Patient is seen today for: Severe sepsis with shock; S/P Cardiac Arrest; L. lung atelectasis / L. pleural effusion; Acute hypoxemic respiratory failure; Acute possibly on chronic encephalopathy; DM II; UTI; VTE Seen and examined at bedside; 24hour events reviewed; nursing and respiratory care staff consulted; no adverse overnight events reported to me; resting peacefully in bed; s/p trach; on SBT but tolerating somewhat tenuously with RR at 26/min; AMS is persistent Objective Vital Signs - 12hr 02/17/20 02/17/20 02/17/20 22:30 23:00 23:05 Temperature Pulse Rate 114 H 113 H 115 H Pulse Rate [ From Monitor] Respiratory 27 H 25 H 26 H Rate Blood Pressure 155/80 141/78 141/78 O2 Sat by Pulse 99 100 100 Oximetry 02/17/20 02/17/20 02/18/20 23:30 23:50 00:00 Temperature 98.9 F Pulse Rate 109 H 115 H 113 H Pulse Rate [ 113 H From Monitor] Respiratory 25 H 26 H Rate Blood Pressure 134/72 134/72 142/81 O2 Sat by Pulse 100 100 100 Oximetry 02/18/20 02/18/20 02/18/20 00:31 01:01 01:31 Temperature Pulse Rate 112 H 114 H 122 H Pulse Rate [ From Monitor] Respiratory 26 H 28 H 27 H Rate Blood Pressure 132/79 137/76 143/72 O2 Sat by Pulse 98 100 100 Oximetry 02/18/20 02/18/20 02/18/20 02:00 02:30 03:00 Temperature Pulse Rate 115 H 108 H 108 H Pulse Rate [ From Monitor] Respiratory 20 32 H 26 H Rate Blood Pressure 144/75 130/83 136/79 O2 Sat by Pulse 100 100 100 Oximetry 02/18/20 02/18/20 02/18/20 03:30 04:00 04:21 Temperature 98.1 F 98.1 F Pulse Rate 108 H 122 H Pulse Rate [ 122 H From Monitor] Respiratory 25 H 20 Rate Blood Pressure 128/78 132/75 O2 Sat by Pulse 100 100 Oximetry 02/18/20 02/18/20 02/18/20 04:30 05:00 05:30 Temperature Pulse Rate 111 H 99 H 102 H Pulse Rate [ From Monitor] Respiratory 12 24 18 Rate Blood Pressure 133/85 133/72 135/75 O2 Sat by Pulse 100 100 100 Oximetry 02/18/20 02/18/20 02/18/20 06:01 06:30 07:00 Temperature Pulse Rate 98 H 89 95 H Pulse Rate [ From Monitor] Respiratory 23 21 22 Rate Blood Pressure 138/70 128/64 129/69 O2 Sat by Pulse 100 100 100 Oximetry 02/18/20 02/18/20 07:31 08:00 Temperature 97.4 F L Pulse Rate 106 H 104 H Pulse Rate [ 96 H From Monitor] Respiratory 23 23 Rate Blood Pressure 134/75 144/76 O2 Sat by Pulse 100 100 Oximetry Constitutional: no acute distress, alert, other (elderly chronically ill looking female orally intubated to MVS) Eyes: non-icteric ENT: oropharynx moist, oropharyngeal exudate pre (copious), other (+ midline tracheostomy) Neck: supple, no lymphadenopathy Effort: normal Ascultation: Bilateral: diminished breath sounds, rhonchi Percussion: Bilateral: not dull Cardiovascular: regular rate and rhythm, other (S1,S2) Gastrointestinal: normoactive bowel sounds, soft, non-tender, other (PEG in place) Integumentary: decubitus ulcer Extremities: no cyanosis, pulses normal, no ischemia or petechiae, edema, other (bilateral upper extremity edema) Neurologic: pupils equal and round, other (awake and alert, not obeying commands) Psychiatric: other (Unable to assess secondary to mental status) CBC and BMP: 02/18/20 04:43 02/18/20 04:43 ABG, PT/INR, D-dimer: ABG ABG pH 7.463 pH Units (7.350-7.450) H 02/13/20 04:30 POC ABG pCO2 38.5 mmHg (32.0-48.0) 02/11/20 03:43 ABG pCO2 39.6 mm Hg 02/13/20 04:30 POC ABG pO2 112.6 mmHg (83-108) H 02/11/20 03:43 ABG pO2 98.4 mm Hg (80.0-90.0) H 02/13/20 04:30 POC ABG HCO3 28 02/11/20 03:43 ABG O2 Saturation 97.7 % (95.0-99.0) 02/13/20 04:30 PT/INR, D-dimer PT 14.4 Sec. (12.2-14.9) 02/02/20 05:25 INR 1.11 (0.87-1.13) 02/02/20 05:25 Abnormal lab findings: Abnormal Labs 09/07/2401/08/20 01/08/20 16:29 16:29 16:29 WBC 13.5 H RBC Hgb Hct MCHC RDW 15.5 H Plt Count MCH Lymph % (Auto) Lymph # Lymph # (Auto) Seg Neutrophils % Seg Neuts % (Manual) 85.0 H Lymphocytes % (Manual) 11.0 L Seg Neutrophils # Seg Neutrophils # Man 11.5 H Nucleated RBC % Lymphocytes # (Manual) Monocytes # (Manual) PT INR Heparin Anti-Xa Level POC ABG pO2 ABG pH ABG Hemoglobin ABG Oxyhemoglobin ABG pO2 ABG HCO3 ABG O2 Saturation ABG Base Excess ABG Potassium ABG Chloride ABG Glucose Oxyhemoglobin Sodium 161 H* Potassium Chloride 125.5 H Carbon Dioxide 20 L BUN 30 H Creatinine Glucose 115 H POC Glucose Lactic Acid 2.20 H* Calcium 7.9 L AST 48 H Phosphorus Total Protein Albumin 2.5 L C-Reactive Protein Arterial Blood Glucose Arterial Blood Ionized Calcium Urine WBC (Auto) Crossmatch 01/08/20 01/08/20 01/08/20 19:02 23:30 Unknown WBC RBC Hgb Hct MCHC RDW Plt Count MCH Lymph % (Auto) Lymph # Lymph # (Auto) Seg Neutrophils % Seg Neuts % (Manual) Lymphocytes % (Manual) Seg Neutrophils # Seg Neutrophils # Man Nucleated RBC % Lymphocytes # (Manual) Monocytes # (Manual) PT INR Heparin Anti-Xa Level POC ABG pO2 ABG pH ABG Hemoglobin ABG Oxyhemoglobin ABG pO2 ABG HCO3 ABG O2 Saturation ABG Base Excess ABG Potassium ABG Chloride ABG Glucose Oxyhemoglobin Sodium Potassium Chloride Carbon Dioxide BUN Creatinine Glucose POC Glucose Lactic Acid 2.10 H* 2.50 H* Calcium AST Phosphorus Total Protein Albumin C-Reactive Protein Arterial Blood Glucose Arterial Blood Ionized Calcium Urine WBC (Auto) 11.0 H Crossmatch 01/09/20 01/09/20 01/09/20 00:19 00:54 05:52 WBC 13.5 H RBC 3.02 L Hgb 9.0 L D Hct 27.4 L D MCHC RDW Plt Count MCH Lymph % (Auto) 9.1 L Lymph # Lymph # (Auto) Seg Neutrophils % 87.6 H Seg Neuts % (Manual) Lymphocytes % (Manual) Seg Neutrophils # 11.8 H Seg Neutrophils # Man Nucleated RBC % Lymphocytes # (Manual) Monocytes # (Manual) PT INR Heparin Anti-Xa Level POC ABG pO2 ABG pH ABG Hemoglobin ABG Oxyhemoglobin ABG pO2 ABG HCO3 ABG O2 Saturation ABG Base Excess ABG Potassium ABG Chloride ABG Glucose Oxyhemoglobin Sodium Potassium Chloride Carbon Dioxide BUN Creatinine Glucose POC Glucose 118 H 116 H Lactic Acid Calcium AST Phosphorus Total Protein Albumin C-Reactive Protein Arterial Blood Glucose Arterial Blood Ionized Calcium Urine WBC (Auto) Crossmatch 01/09/20 01/09/20 01/09/20 05:52 05:52 13:03 WBC RBC Hgb Hct MCHC RDW Plt Count MCH Lymph % (Auto) Lymph # Lymph # (Auto) Seg Neutrophils % Seg Neuts % (Manual) Lymphocytes % (Manual) Seg Neutrophils # Seg Neutrophils # Man Nucleated RBC % Lymphocytes # (Manual) Monocytes # (Manual) PT 17.1 H INR 1.36 H Heparin Anti-Xa Level POC ABG pO2 ABG pH ABG Hemoglobin ABG Oxyhemoglobin ABG pO2 ABG HCO3 ABG O2 Saturation ABG Base Excess ABG Potassium ABG Chloride ABG Glucose Oxyhemoglobin Sodium 162 H* Potassium 3.0 L D Chloride 128.3 H Carbon Dioxide BUN 23 H Creatinine Glucose POC Glucose 55 L Lactic Acid Calcium 7.6 L AST Phosphorus Total Protein Albumin C-Reactive Protein Arterial Blood Glucose Arterial Blood Ionized Calcium Urine WBC (Auto) Crossmatch 01/09/20 01/09/20 01/09/20 21:22 21:50 22:28 WBC RBC Hgb Hct MCHC RDW Plt Count MCH Lymph % (Auto) Lymph # Lymph # (Auto) Seg Neutrophils % Seg Neuts % (Manual) Lymphocytes % (Manual) Seg Neutrophils # Seg Neutrophils # Man Nucleated RBC % Lymphocytes # (Manual) Monocytes # (Manual) PT INR Heparin Anti-Xa Level POC ABG pO2 ABG pH ABG Hemoglobin ABG Oxyhemoglobin ABG pO2 ABG HCO3 ABG O2 Saturation ABG Base Excess ABG Potassium ABG Chloride ABG Glucose Oxyhemoglobin Sodium 159 H Potassium 5.1 H D Chloride 128.5 H Carbon Dioxide 16 L BUN 23 H Creatinine Glucose 51 L POC Glucose 52 L 106 H Lactic Acid Calcium 8.2 L AST Phosphorus Total Protein Albumin C-Reactive Protein Arterial Blood Glucose Arterial Blood Ionized Calcium Urine WBC (Auto) Crossmatch 01/10/20 01/10/20 01/10/20 05:23 09:11 10:10 WBC 13.4 H RBC Hgb Hct MCHC RDW Plt Count MCH Lymph % (Auto) 7.2 L Lymph # 1.0 L Lymph # (Auto) Seg Neutrophils % 90.0 H Seg Neuts % (Manual) Lymphocytes % (Manual) Seg Neutrophils # 12.0 H Seg Neutrophils # Man Nucleated RBC % Lymphocytes # (Manual) Monocytes # (Manual) PT INR Heparin Anti-Xa Level POC ABG pO2 ABG pH ABG Hemoglobin ABG Oxyhemoglobin ABG pO2 ABG HCO3 ABG O2 Saturation ABG Base Excess ABG Potassium ABG Chloride ABG Glucose Oxyhemoglobin Sodium 155 H Potassium Chloride 122.8 H Carbon Dioxide 21 L BUN 19 H Creatinine Glucose POC Glucose 120 H Lactic Acid Calcium AST Phosphorus Total Protein Albumin C-Reactive Protein Arterial Blood Glucose Arterial Blood Ionized Calcium Urine WBC (Auto) Crossmatch 01/10/20 01/10/20 01/10/20 11:47 11:57 17:09 WBC RBC Hgb Hct MCHC RDW Plt Count MCH Lymph % (Auto) Lymph # Lymph # (Auto) Seg Neutrophils % Seg Neuts % (Manual) Lymphocytes % (Manual) Seg Neutrophils # Seg Neutrophils # Man Nucleated RBC % Lymphocytes # (Manual) Monocytes # (Manual) PT INR Heparin Anti-Xa Level POC ABG pO2 ABG pH ABG Hemoglobin ABG Oxyhemoglobin ABG pO2 ABG HCO3 ABG O2 Saturation ABG Base Excess ABG Potassium ABG Chloride ABG Glucose Oxyhemoglobin Sodium 153 H Potassium Chloride 118.3 H Carbon Dioxide 20 L BUN 19 H Creatinine Glucose 113 H POC Glucose 142 H 125 H Lactic Acid Calcium AST Phosphorus Total Protein Albumin C-Reactive Protein Arterial Blood Glucose Arterial Blood Ionized Calcium Urine WBC (Auto) Crossmatch 01/10/20 01/10/20 01/11/20 20:27 22:00 00:45 WBC RBC Hgb Hct MCHC RDW Plt Count MCH Lymph % (Auto) Lymph # Lymph # (Auto) Seg Neutrophils % Seg Neuts % (Manual) Lymphocytes % (Manual) Seg Neutrophils # Seg Neutrophils # Man Nucleated RBC % Lymphocytes # (Manual) Monocytes # (Manual) PT INR Heparin Anti-Xa Level POC ABG pO2 ABG pH ABG Hemoglobin ABG Oxyhemoglobin ABG pO2 ABG HCO3 ABG O2 Saturation ABG Base Excess ABG Potassium ABG Chloride ABG Glucose Oxyhemoglobin Sodium 153 H 154 H Potassium 3.3 L 3.2 L Chloride 117.0 H 118.9 H Carbon Dioxide 20 L BUN Creatinine Glucose POC Glucose 136 H Lactic Acid Calcium 8.3 L 8.0 L AST Phosphorus Total Protein Albumin C-Reactive Protein Arterial Blood Glucose Arterial Blood Ionized Calcium Urine WBC (Auto) Crossmatch 01/11/20 01/11/20 01/11/20 07:06 08:03 11:54 WBC RBC Hgb Hct MCHC RDW Plt Count MCH Lymph % (Auto) Lymph # Lymph # (Auto) Seg Neutrophils % Seg Neuts % (Manual) Lymphocytes % (Manual) Seg Neutrophils # Seg Neutrophils # Man Nucleated RBC % Lymphocytes # (Manual) Monocytes # (Manual) PT INR Heparin Anti-Xa Level POC ABG pO2 ABG pH ABG Hemoglobin ABG Oxyhemoglobin ABG pO2 ABG HCO3 ABG O2 Saturation ABG Base Excess ABG Potassium ABG Chloride ABG Glucose Oxyhemoglobin Sodium 151 H Potassium Chloride 118.7 H Carbon Dioxide 21 L BUN Creatinine Glucose 107 H POC Glucose 118 H 164 H Lactic Acid Calcium 8.3 L AST Phosphorus Total Protein Albumin C-Reactive Protein Arterial Blood Glucose Arterial Blood Ionized Calcium Urine WBC (Auto) Crossmatch 01/11/20 01/12/20 01/12/20 16:28 00:19 05:40 WBC RBC Hgb Hct MCHC RDW Plt Count MCH Lymph % (Auto) Lymph # Lymph # (Auto) Seg Neutrophils % Seg Neuts % (Manual) Lymphocytes % (Manual) Seg Neutrophils # Seg Neutrophils # Man Nucleated RBC % Lymphocytes # (Manual) Monocytes # (Manual) PT INR Heparin Anti-Xa Level POC ABG pO2 ABG pH ABG Hemoglobin ABG Oxyhemoglobin ABG pO2 ABG HCO3 ABG O2 Saturation ABG Base Excess ABG Potassium ABG Chloride ABG Glucose Oxyhemoglobin Sodium 148 H Potassium Chloride 111.6 H Carbon Dioxide 19 L BUN Creatinine Glucose 128 H POC Glucose 132 H 179 H Lactic Acid Calcium 8.2 L AST Phosphorus Total Protein Albumin C-Reactive Protein Arterial Blood Glucose Arterial Blood Ionized Calcium Urine WBC (Auto) Crossmatch 01/12/20 01/12/20 01/12/20 06:17 11:37 17:21 WBC RBC Hgb Hct MCHC RDW Plt Count MCH Lymph % (Auto) Lymph # Lymph # (Auto) Seg Neutrophils % Seg Neuts % (Manual) Lymphocytes % (Manual) Seg Neutrophils # Seg Neutrophils # Man Nucleated RBC % Lymphocytes # (Manual) Monocytes # (Manual) PT INR Heparin Anti-Xa Level POC ABG pO2 ABG pH ABG Hemoglobin ABG Oxyhemoglobin ABG pO2 ABG HCO3 ABG O2 Saturation ABG Base Excess ABG Potassium ABG Chloride ABG Glucose Oxyhemoglobin Sodium Potassium Chloride Carbon Dioxide BUN Creatinine Glucose POC Glucose 140 H 142 H 133 H Lactic Acid Calcium AST Phosphorus Total Protein Albumin C-Reactive Protein Arterial Blood Glucose Arterial Blood Ionized Calcium Urine WBC (Auto) Crossmatch 01/12/20 01/13/20 01/13/20 23:14 05:26 07:00 WBC RBC Hgb Hct MCHC RDW Plt Count MCH Lymph % (Auto) Lymph # Lymph # (Auto) Seg Neutrophils % Seg Neuts % (Manual) Lymphocytes % (Manual) Seg Neutrophils # Seg Neutrophils # Man Nucleated RBC % Lymphocytes # (Manual) Monocytes # (Manual) PT INR Heparin Anti-Xa Level POC ABG pO2 ABG pH ABG Hemoglobin ABG Oxyhemoglobin ABG pO2 ABG HCO3 ABG O2 Saturation ABG Base Excess ABG Potassium ABG Chloride ABG Glucose Oxyhemoglobin Sodium Potassium Chloride 110.0 H Carbon Dioxide BUN Creatinine Glucose 139 H POC Glucose 135 H 162 H Lactic Acid Calcium 7.8 L AST Phosphorus Total Protein Albumin C-Reactive Protein Arterial Blood Glucose Arterial Blood Ionized Calcium Urine WBC (Auto) Crossmatch 01/13/20 01/13/20 01/13/20 12:14 17:52 21:40 WBC RBC Hgb Hct MCHC RDW Plt Count MCH Lymph % (Auto) Lymph # Lymph # (Auto) Seg Neutrophils % Seg Neuts % (Manual) Lymphocytes % (Manual) Seg Neutrophils # Seg Neutrophils # Man Nucleated RBC % Lymphocytes # (Manual) Monocytes # (Manual) PT INR Heparin Anti-Xa Level POC ABG pO2 ABG pH ABG Hemoglobin ABG Oxyhemoglobin ABG pO2 ABG HCO3 ABG O2 Saturation ABG Base Excess ABG Potassium ABG Chloride ABG Glucose Oxyhemoglobin Sodium Potassium Chloride Carbon Dioxide BUN Creatinine Glucose POC Glucose 205 H 172 H 186 H Lactic Acid Calcium AST Phosphorus Total Protein Albumin C-Reactive Protein Arterial Blood Glucose Arterial Blood Ionized Calcium Urine WBC (Auto) Crossmatch 01/14/20 01/14/20 01/14/20 04:28 11:01 11:01 WBC 14.8 H RBC 3.20 L Hgb 9.5 L Hct 28.0 L MCHC RDW Plt Count MCH Lymph % (Auto) Lymph # Lymph # (Auto) Seg Neutrophils % Seg Neuts % (Manual) Lymphocytes % (Manual) Seg Neutrophils # Seg Neutrophils # Man Nucleated RBC % Lymphocytes # (Manual) Monocytes # (Manual) PT INR Heparin Anti-Xa Level POC ABG pO2 ABG pH ABG Hemoglobin ABG Oxyhemoglobin ABG pO2 ABG HCO3 ABG O2 Saturation ABG Base Excess ABG Potassium ABG Chloride ABG Glucose Oxyhemoglobin Sodium Potassium 3.2 L Chloride Carbon Dioxide BUN Creatinine 0.4 L Glucose POC Glucose 115 H Lactic Acid Calcium 8.0 L AST Phosphorus Total Protein Albumin C-Reactive Protein Arterial Blood Glucose Arterial Blood Ionized Calcium Urine WBC (Auto) Crossmatch 01/14/20 01/14/20 01/14/20 11:01 16:33 22:32 WBC RBC Hgb Hct MCHC RDW Plt Count MCH Lymph % (Auto) Lymph # Lymph # (Auto) Seg Neutrophils % Seg Neuts % (Manual) Lymphocytes % (Manual) Seg Neutrophils # Seg Neutrophils # Man Nucleated RBC % Lymphocytes # (Manual) Monocytes # (Manual) PT 15.8 H INR 1.23 H Heparin Anti-Xa Level POC ABG pO2 ABG pH ABG Hemoglobin ABG Oxyhemoglobin ABG pO2 ABG HCO3 ABG O2 Saturation ABG Base Excess ABG Potassium ABG Chloride ABG Glucose Oxyhemoglobin Sodium Potassium Chloride Carbon Dioxide BUN Creatinine Glucose POC Glucose 58 L 188 H Lactic Acid Calcium AST Phosphorus Total Protein Albumin C-Reactive Protein Arterial Blood Glucose Arterial Blood Ionized Calcium Urine WBC (Auto) Crossmatch 01/15/20 01/15/20 01/15/20 05:35 06:19 17:17 WBC RBC Hgb Hct MCHC RDW Plt Count MCH Lymph % (Auto) Lymph # Lymph # (Auto) Seg Neutrophils % Seg Neuts % (Manual) Lymphocytes % (Manual) Seg Neutrophils # Seg Neutrophils # Man Nucleated RBC % Lymphocytes # (Manual) Monocytes # (Manual) PT INR Heparin Anti-Xa Level POC ABG pO2 ABG pH ABG Hemoglobin ABG Oxyhemoglobin ABG pO2 ABG HCO3 ABG O2 Saturation ABG Base Excess ABG Potassium ABG Chloride ABG Glucose Oxyhemoglobin Sodium Potassium Chloride Carbon Dioxide BUN Creatinine 0.5 L Glucose 104 H POC Glucose 106 H 183 H Lactic Acid Calcium 7.8 L AST Phosphorus Total Protein Albumin C-Reactive Protein Arterial Blood Glucose Arterial Blood Ionized Calcium Urine WBC (Auto) Crossmatch 01/15/20 01/16/20 01/16/20 22:29 05:35 05:59 WBC 14.7 H RBC 3.04 L Hgb 9.0 L Hct 27.0 L MCHC RDW Plt Count MCH Lymph % (Auto) 9.1 L Lymph # Lymph # (Auto) Seg Neutrophils % 87.3 H Seg Neuts % (Manual) Lymphocytes % (Manual) Seg Neutrophils # 12.9 H Seg Neutrophils # Man Nucleated RBC % Lymphocytes # (Manual) Monocytes # (Manual) PT INR Heparin Anti-Xa Level POC ABG pO2 ABG pH ABG Hemoglobin ABG Oxyhemoglobin ABG pO2 ABG HCO3 ABG O2 Saturation ABG Base Excess ABG Potassium ABG Chloride ABG Glucose Oxyhemoglobin Sodium Potassium Chloride Carbon Dioxide BUN Creatinine Glucose POC Glucose 228 H 130 H Lactic Acid Calcium AST Phosphorus Total Protein Albumin C-Reactive Protein Arterial Blood Glucose Arterial Blood Ionized Calcium Urine WBC (Auto) Crossmatch 01/16/20 01/16/20 01/16/20 09:52 12:49 17:30 WBC RBC Hgb Hct MCHC RDW Plt Count MCH Lymph % (Auto) Lymph # Lymph # (Auto) Seg Neutrophils % Seg Neuts % (Manual) Lymphocytes % (Manual) Seg Neutrophils # Seg Neutrophils # Man Nucleated RBC % Lymphocytes # (Manual) Monocytes # (Manual) PT INR Heparin Anti-Xa Level POC ABG pO2 ABG pH ABG Hemoglobin ABG Oxyhemoglobin ABG pO2 ABG HCO3 ABG O2 Saturation ABG Base Excess ABG Potassium ABG Chloride ABG Glucose Oxyhemoglobin Sodium Potassium Chloride Carbon Dioxide BUN Creatinine Glucose POC Glucose 122 H 142 H 192 H Lactic Acid Calcium AST Phosphorus Total Protein Albumin C-Reactive Protein Arterial Blood Glucose Arterial Blood Ionized Calcium Urine WBC (Auto) Crossmatch 01/16/20 01/17/20 01/17/20 23:01 08:36 08:36 WBC 12.7 H RBC 2.98 L Hgb 8.9 L Hct 26.4 L MCHC RDW Plt Count MCH Lymph % (Auto) 8.8 L Lymph # 1.1 L Lymph # (Auto) Seg Neutrophils % 86.7 H Seg Neuts % (Manual) Lymphocytes % (Manual) Seg Neutrophils # 11.0 H Seg Neutrophils # Man Nucleated RBC % Lymphocytes # (Manual) Monocytes # (Manual) PT INR Heparin Anti-Xa Level POC ABG pO2 ABG pH ABG Hemoglobin ABG Oxyhemoglobin ABG pO2 ABG HCO3 ABG O2 Saturation ABG Base Excess ABG Potassium ABG Chloride ABG Glucose Oxyhemoglobin Sodium Potassium 3.3 L D Chloride Carbon Dioxide BUN Creatinine 0.4 L Glucose POC Glucose 141 H Lactic Acid Calcium 8.1 L AST Phosphorus Total Protein 4.6 L Albumin 1.6 L C-Reactive Protein Arterial Blood Glucose Arterial Blood Ionized Calcium Urine WBC (Auto) Crossmatch 01/17/20 01/17/20 01/18/20 11:43 23:56 06:27 WBC RBC Hgb Hct MCHC RDW Plt Count MCH Lymph % (Auto) Lymph # Lymph # (Auto) Seg Neutrophils % Seg Neuts % (Manual) Lymphocytes % (Manual) Seg Neutrophils # Seg Neutrophils # Man Nucleated RBC % Lymphocytes # (Manual) Monocytes # (Manual) PT INR Heparin Anti-Xa Level POC ABG pO2 ABG pH ABG Hemoglobin ABG Oxyhemoglobin ABG pO2 ABG HCO3 ABG O2 Saturation ABG Base Excess ABG Potassium ABG Chloride ABG Glucose Oxyhemoglobin Sodium Potassium Chloride Carbon Dioxide BUN Creatinine Glucose POC Glucose 137 H 215 H 122 H Lactic Acid Calcium AST Phosphorus Total Protein Albumin C-Reactive Protein Arterial Blood Glucose Arterial Blood Ionized Calcium Urine WBC (Auto) Crossmatch 01/18/20 01/18/20 01/18/20 07:31 07:31 11:39 WBC 12.1 H RBC 3.23 L Hgb 9.7 L Hct 28.7 L MCHC RDW Plt Count MCH Lymph % (Auto) 9.2 L Lymph # 1.1 L Lymph # (Auto) Seg Neutrophils % 85.0 H Seg Neuts % (Manual) Lymphocytes % (Manual) Seg Neutrophils # 10.3 H Seg Neutrophils # Man Nucleated RBC % Lymphocytes # (Manual) Monocytes # (Manual) PT INR Heparin Anti-Xa Level POC ABG pO2 ABG pH ABG Hemoglobin ABG Oxyhemoglobin ABG pO2 ABG HCO3 ABG O2 Saturation ABG Base Excess ABG Potassium ABG Chloride ABG Glucose Oxyhemoglobin Sodium Potassium Chloride Carbon Dioxide BUN Creatinine 0.4 L Glucose 108 H POC Glucose 172 H Lactic Acid Calcium AST Phosphorus Total Protein 5.3 L Albumin 2.1 L C-Reactive Protein Arterial Blood Glucose Arterial Blood Ionized Calcium Urine WBC (Auto) Crossmatch 01/18/20 01/19/20 01/19/20 18:22 00:15 11:30 WBC RBC Hgb Hct MCHC RDW Plt Count MCH Lymph % (Auto) Lymph # Lymph # (Auto) Seg Neutrophils % Seg Neuts % (Manual) Lymphocytes % (Manual) Seg Neutrophils # Seg Neutrophils # Man Nucleated RBC % Lymphocytes # (Manual) Monocytes # (Manual) PT INR Heparin Anti-Xa Level POC ABG pO2 ABG pH ABG Hemoglobin ABG Oxyhemoglobin ABG pO2 ABG HCO3 ABG O2 Saturation ABG Base Excess ABG Potassium ABG Chloride ABG Glucose Oxyhemoglobin Sodium Potassium Chloride Carbon Dioxide BUN Creatinine Glucose POC Glucose 119 H 135 H 163 H Lactic Acid Calcium AST Phosphorus Total Protein Albumin C-Reactive Protein Arterial Blood Glucose Arterial Blood Ionized Calcium Urine WBC (Auto) Crossmatch 01/19/20 01/19/20 01/20/20 17:44 22:59 03:44 WBC 11.1 H RBC 2.77 L Hgb 8.4 L Hct 25.0 L MCHC RDW Plt Count MCH Lymph % (Auto) Lymph # Lymph # (Auto) Seg Neutrophils % 74.6 H Seg Neuts % (Manual) Lymphocytes % (Manual) Seg Neutrophils # 8.3 H Seg Neutrophils # Man Nucleated RBC % Lymphocytes # (Manual) Monocytes # (Manual) PT INR Heparin Anti-Xa Level POC ABG pO2 ABG pH ABG Hemoglobin ABG Oxyhemoglobin ABG pO2 ABG HCO3 ABG O2 Saturation ABG Base Excess ABG Potassium ABG Chloride ABG Glucose Oxyhemoglobin Sodium Potassium Chloride Carbon Dioxide BUN Creatinine Glucose POC Glucose 161 H 182 H Lactic Acid Calcium AST Phosphorus Total Protein Albumin C-Reactive Protein Arterial Blood Glucose Arterial Blood Ionized Calcium Urine WBC (Auto) Crossmatch 01/20/20 01/21/20 01/21/20 03:44 00:07 05:51 WBC RBC 2.84 L Hgb 8.6 L Hct 25.5 L MCHC RDW Plt Count 463 H MCH Lymph % (Auto) Lymph # Lymph # (Auto) Seg Neutrophils % 76.9 H Seg Neuts % (Manual) Lymphocytes % (Manual) Seg Neutrophils # 7.8 H Seg Neutrophils # Man Nucleated RBC % Lymphocytes # (Manual) Monocytes # (Manual) PT INR Heparin Anti-Xa Level POC ABG pO2 ABG pH ABG Hemoglobin ABG Oxyhemoglobin ABG pO2 ABG HCO3 ABG O2 Saturation ABG Base Excess ABG Potassium ABG Chloride ABG Glucose Oxyhemoglobin Sodium Potassium Chloride Carbon Dioxide BUN Creatinine 0.4 L Glucose POC Glucose 68 L Lactic Acid Calcium 7.9 L AST Phosphorus Total Protein 4.7 L Albumin 1.9 L C-Reactive Protein Arterial Blood Glucose Arterial Blood Ionized Calcium Urine WBC (Auto) Crossmatch 01/21/20 01/21/20 01/21/20 05:51 05:58 11:25 WBC RBC Hgb Hct MCHC RDW Plt Count MCH Lymph % (Auto) Lymph # Lymph # (Auto) Seg Neutrophils % Seg Neuts % (Manual) Lymphocytes % (Manual) Seg Neutrophils # Seg Neutrophils # Man Nucleated RBC % Lymphocytes # (Manual) Monocytes # (Manual) PT INR Heparin Anti-Xa Level POC ABG pO2 ABG pH ABG Hemoglobin ABG Oxyhemoglobin ABG pO2 ABG HCO3 ABG O2 Saturation ABG Base Excess ABG Potassium ABG Chloride ABG Glucose Oxyhemoglobin Sodium Potassium Chloride Carbon Dioxide 20 L BUN Creatinine 0.5 L Glucose 130 H POC Glucose 185 H 163 H Lactic Acid Calcium 7.6 L AST Phosphorus Total Protein 5.0 L Albumin 1.9 L C-Reactive Protein Arterial Blood Glucose Arterial Blood Ionized Calcium Urine WBC (Auto) Crossmatch 01/21/20 01/21/20 01/22/20 16:22 21:17 01:28 WBC RBC 2.60 L Hgb 8.0 L Hct 23.3 L MCHC RDW Plt Count MCH Lymph % (Auto) Lymph # Lymph # (Auto) Seg Neutrophils % 74.8 H Seg Neuts % (Manual) Lymphocytes % (Manual) Seg Neutrophils # Seg Neutrophils # Man Nucleated RBC % Lymphocytes # (Manual) Monocytes # (Manual) PT INR Heparin Anti-Xa Level POC ABG pO2 ABG pH ABG Hemoglobin ABG Oxyhemoglobin ABG pO2 ABG HCO3 ABG O2 Saturation ABG Base Excess ABG Potassium ABG Chloride ABG Glucose Oxyhemoglobin Sodium Potassium Chloride Carbon Dioxide BUN Creatinine Glucose POC Glucose 177 H 67 L Lactic Acid Calcium AST Phosphorus Total Protein Albumin C-Reactive Protein Arterial Blood Glucose Arterial Blood Ionized Calcium Urine WBC (Auto) Crossmatch 01/22/20 01/22/20 01/22/20 01:28 01:28 12:06 WBC RBC Hgb Hct MCHC RDW Plt Count MCH Lymph % (Auto) Lymph # Lymph # (Auto) Seg Neutrophils % Seg Neuts % (Manual) Lymphocytes % (Manual) Seg Neutrophils # Seg Neutrophils # Man Nucleated RBC % Lymphocytes # (Manual) Monocytes # (Manual) PT INR Heparin Anti-Xa Level POC ABG pO2 ABG pH ABG Hemoglobin ABG Oxyhemoglobin ABG pO2 ABG HCO3 ABG O2 Saturation ABG Base Excess ABG Potassium ABG Chloride ABG Glucose Oxyhemoglobin Sodium Potassium Chloride 107.6 H Carbon Dioxide BUN Creatinine 0.4 L Glucose 152 H POC Glucose 203 H 140 H Lactic Acid Calcium 7.5 L AST Phosphorus Total Protein 4.0 L Albumin 2.0 L C-Reactive Protein Arterial Blood Glucose Arterial Blood Ionized Calcium Urine WBC (Auto) Crossmatch 01/22/20 01/22/20 01/23/20 16:24 22:55 06:10 WBC RBC 2.68 L Hgb 8.6 L Hct 24.1 L MCHC 36 H RDW Plt Count MCH Lymph % (Auto) Lymph # Lymph # (Auto) Seg Neutrophils % Seg Neuts % (Manual) 71.0 H Lymphocytes % (Manual) Seg Neutrophils # Seg Neutrophils # Man Nucleated RBC % Lymphocytes # (Manual) Monocytes # (Manual) PT INR Heparin Anti-Xa Level POC ABG pO2 ABG pH ABG Hemoglobin ABG Oxyhemoglobin ABG pO2 ABG HCO3 ABG O2 Saturation ABG Base Excess ABG Potassium ABG Chloride ABG Glucose Oxyhemoglobin Sodium Potassium Chloride Carbon Dioxide BUN Creatinine Glucose POC Glucose 205 H 196 H Lactic Acid Calcium AST Phosphorus Total Protein Albumin C-Reactive Protein Arterial Blood Glucose Arterial Blood Ionized Calcium Urine WBC (Auto) Crossmatch 01/23/20 01/23/20 01/23/20 06:10 07:35 11:59 WBC RBC Hgb Hct MCHC RDW Plt Count MCH Lymph % (Auto) Lymph # Lymph # (Auto) Seg Neutrophils % Seg Neuts % (Manual) Lymphocytes % (Manual) Seg Neutrophils # Seg Neutrophils # Man Nucleated RBC % Lymphocytes # (Manual) Monocytes # (Manual) PT INR Heparin Anti-Xa Level POC ABG pO2 ABG pH ABG Hemoglobin ABG Oxyhemoglobin ABG pO2 ABG HCO3 ABG O2 Saturation ABG Base Excess ABG Potassium ABG Chloride ABG Glucose Oxyhemoglobin Sodium Potassium Chloride 108.8 H Carbon Dioxide BUN Creatinine 0.4 L Glucose 105 H POC Glucose 111 H 123 H Lactic Acid Calcium 8.0 L AST Phosphorus Total Protein 4.9 L D Albumin 2.0 L C-Reactive Protein Arterial Blood Glucose Arterial Blood Ionized Calcium Urine WBC (Auto) Crossmatch 01/23/20 01/24/20 01/24/20 22:45 11:24 16:41 WBC RBC Hgb Hct MCHC RDW Plt Count MCH Lymph % (Auto) Lymph # Lymph # (Auto) Seg Neutrophils % Seg Neuts % (Manual) Lymphocytes % (Manual) Seg Neutrophils # Seg Neutrophils # Man Nucleated RBC % Lymphocytes # (Manual) Monocytes # (Manual) PT INR Heparin Anti-Xa Level POC ABG pO2 ABG pH ABG Hemoglobin ABG Oxyhemoglobin ABG pO2 ABG HCO3 ABG O2 Saturation ABG Base Excess ABG Potassium ABG Chloride ABG Glucose Oxyhemoglobin Sodium Potassium Chloride Carbon Dioxide BUN Creatinine Glucose POC Glucose 180 H 182 H 177 H Lactic Acid Calcium AST Phosphorus Total Protein Albumin C-Reactive Protein Arterial Blood Glucose Arterial Blood Ionized Calcium Urine WBC (Auto) Crossmatch 01/24/20 01/25/20 01/25/20 23:11 07:12 11:35 WBC RBC Hgb Hct MCHC RDW Plt Count MCH Lymph % (Auto) Lymph # Lymph # (Auto) Seg Neutrophils % Seg Neuts % (Manual) Lymphocytes % (Manual) Seg Neutrophils # Seg Neutrophils # Man Nucleated RBC % Lymphocytes # (Manual) Monocytes # (Manual) PT INR Heparin Anti-Xa Level POC ABG pO2 ABG pH ABG Hemoglobin ABG Oxyhemoglobin ABG pO2 ABG HCO3 ABG O2 Saturation ABG Base Excess ABG Potassium ABG Chloride ABG Glucose Oxyhemoglobin Sodium Potassium Chloride Carbon Dioxide BUN Creatinine Glucose POC Glucose 142 H 135 H 142 H Lactic Acid Calcium AST Phosphorus Total Protein Albumin C-Reactive Protein Arterial Blood Glucose Arterial Blood Ionized Calcium Urine WBC (Auto) Crossmatch 01/25/20 01/26/20 01/26/20 16:33 00:04 11:35 WBC RBC Hgb Hct MCHC RDW Plt Count MCH Lymph % (Auto) Lymph # Lymph # (Auto) Seg Neutrophils % Seg Neuts % (Manual) Lymphocytes % (Manual) Seg Neutrophils # Seg Neutrophils # Man Nucleated RBC % Lymphocytes # (Manual) Monocytes # (Manual) PT INR Heparin Anti-Xa Level POC ABG pO2 ABG pH ABG Hemoglobin ABG Oxyhemoglobin ABG pO2 ABG HCO3 ABG O2 Saturation ABG Base Excess ABG Potassium ABG Chloride ABG Glucose Oxyhemoglobin Sodium Potassium Chloride Carbon Dioxide BUN Creatinine Glucose POC Glucose 247 H 233 H 200 H Lactic Acid Calcium AST Phosphorus Total Protein Albumin C-Reactive Protein Arterial Blood Glucose Arterial Blood Ionized Calcium Urine WBC (Auto) Crossmatch 01/26/20 01/26/20 01/26/20 16:30 16:30 17:19 WBC RBC Hgb 7.4 L Hct 22.0 L MCHC RDW Plt Count MCH Lymph % (Auto) Lymph # Lymph # (Auto) Seg Neutrophils % Seg Neuts % (Manual) Lymphocytes % (Manual) Seg Neutrophils # Seg Neutrophils # Man Nucleated RBC % Lymphocytes # (Manual) Monocytes # (Manual) PT 18.4 H INR 1.50 H Heparin Anti-Xa Level POC ABG pO2 ABG pH ABG Hemoglobin ABG Oxyhemoglobin ABG pO2 ABG HCO3 ABG O2 Saturation ABG Base Excess ABG Potassium ABG Chloride ABG Glucose Oxyhemoglobin Sodium Potassium Chloride Carbon Dioxide BUN Creatinine Glucose POC Glucose 67 L Lactic Acid Calcium AST Phosphorus Total Protein Albumin C-Reactive Protein Arterial Blood Glucose Arterial Blood Ionized Calcium Urine WBC (Auto) Crossmatch 01/26/20 01/26/20 01/27/20 20:24 21:32 00:16 WBC RBC Hgb Hct MCHC RDW Plt Count MCH Lymph % (Auto) Lymph # Lymph # (Auto) Seg Neutrophils % Seg Neuts % (Manual) Lymphocytes % (Manual) Seg Neutrophils # Seg Neutrophils # Man Nucleated RBC % Lymphocytes # (Manual) Monocytes # (Manual) PT INR Heparin Anti-Xa Level POC ABG pO2 51.8 L ABG pH ABG Hemoglobin 8.5 L ABG Oxyhemoglobin 84.7 L ABG pO2 ABG HCO3 ABG O2 Saturation ABG Base Excess ABG Potassium ABG Chloride ABG Glucose Oxyhemoglobin Sodium Potassium Chloride Carbon Dioxide BUN Creatinine Glucose POC Glucose 162 H 141 H Lactic Acid Calcium AST Phosphorus Total Protein Albumin C-Reactive Protein Arterial Blood Glucose Arterial Blood Ionized Calcium Urine WBC (Auto) Crossmatch 01/27/20 01/27/20 01/27/20 01:42 02:18 05:57 WBC RBC Hgb Hct MCHC RDW Plt Count MCH Lymph % (Auto) Lymph # Lymph # (Auto) Seg Neutrophils % Seg Neuts % (Manual) Lymphocytes % (Manual) Seg Neutrophils # Seg Neutrophils # Man Nucleated RBC % Lymphocytes # (Manual) Monocytes # (Manual) PT INR Heparin Anti-Xa Level 2.00 H POC ABG pO2 ABG pH ABG Hemoglobin ABG Oxyhemoglobin ABG pO2 ABG HCO3 ABG O2 Saturation ABG Base Excess ABG Potassium ABG Chloride ABG Glucose Oxyhemoglobin Sodium Potassium Chloride Carbon Dioxide BUN Creatinine Glucose POC Glucose 183 H 124 H Lactic Acid Calcium AST Phosphorus Total Protein Albumin C-Reactive Protein Arterial Blood Glucose Arterial Blood Ionized Calcium Urine WBC (Auto) Crossmatch 01/27/20 01/27/20 01/27/20 06:30 06:30 12:23 WBC RBC 2.75 L Hgb 8.4 L Hct 24.9 L MCHC RDW 16.0 H Plt Count 474 H MCH Lymph % (Auto) 12.7 L Lymph # Lymph # (Auto) Seg Neutrophils % 83.2 H Seg Neuts % (Manual) Lymphocytes % (Manual) Seg Neutrophils # 8.4 H Seg Neutrophils # Man Nucleated RBC % Lymphocytes # (Manual) Monocytes # (Manual) PT INR Heparin Anti-Xa Level POC ABG pO2 ABG pH ABG Hemoglobin ABG Oxyhemoglobin ABG pO2 ABG HCO3 ABG O2 Saturation ABG Base Excess ABG Potassium ABG Chloride ABG Glucose Oxyhemoglobin Sodium Potassium 3.5 L Chloride 110.2 H Carbon Dioxide BUN Creatinine 0.4 L Glucose 101 H POC Glucose 126 H Lactic Acid Calcium 7.8 L AST Phosphorus Total Protein Albumin C-Reactive Protein Arterial Blood Glucose Arterial Blood Ionized Calcium Urine WBC (Auto) Crossmatch 01/27/20 01/27/20 01/28/20 17:31 23:40 00:00 WBC RBC Hgb Hct MCHC RDW Plt Count MCH Lymph % (Auto) Lymph # Lymph # (Auto) Seg Neutrophils % Seg Neuts % (Manual) Lymphocytes % (Manual) Seg Neutrophils # Seg Neutrophils # Man Nucleated RBC % Lymphocytes # (Manual) Monocytes # (Manual) PT INR Heparin Anti-Xa Level 2.00 H POC ABG pO2 ABG pH ABG Hemoglobin ABG Oxyhemoglobin ABG pO2 ABG HCO3 ABG O2 Saturation ABG Base Excess ABG Potassium ABG Chloride ABG Glucose Oxyhemoglobin Sodium Potassium Chloride Carbon Dioxide BUN Creatinine Glucose POC Glucose 133 H 136 H Lactic Acid Calcium AST Phosphorus Total Protein Albumin C-Reactive Protein Arterial Blood Glucose Arterial Blood Ionized Calcium Urine WBC (Auto) Crossmatch 01/28/20 01/28/20 01/28/20 04:26 04:26 05:35 WBC RBC Hgb 9.6 L Hct 28.5 L MCHC RDW Plt Count 508 H MCH Lymph % (Auto) Lymph # Lymph # (Auto) Seg Neutrophils % Seg Neuts % (Manual) Lymphocytes % (Manual) Seg Neutrophils # Seg Neutrophils # Man Nucleated RBC % Lymphocytes # (Manual) Monocytes # (Manual) PT INR Heparin Anti-Xa Level POC ABG pO2 ABG pH ABG Hemoglobin ABG Oxyhemoglobin ABG pO2 ABG HCO3 ABG O2 Saturation ABG Base Excess ABG Potassium ABG Chloride ABG Glucose Oxyhemoglobin Sodium Potassium Chloride Carbon Dioxide 19 L BUN 20 H Creatinine 0.5 L Glucose 103 H POC Glucose 135 H Lactic Acid Calcium 7.9 L AST Phosphorus Total Protein Albumin C-Reactive Protein Arterial Blood Glucose Arterial Blood Ionized Calcium Urine WBC (Auto) Crossmatch 01/28/20 01/28/20 01/28/20 08:50 11:10 11:51 WBC RBC Hgb Hct MCHC RDW Plt Count MCH Lymph % (Auto) Lymph # Lymph # (Auto) Seg Neutrophils % Seg Neuts % (Manual) Lymphocytes % (Manual) Seg Neutrophils # Seg Neutrophils # Man Nucleated RBC % Lymphocytes # (Manual) Monocytes # (Manual) PT INR Heparin Anti-Xa Level 0.74 H POC ABG pO2 67.2 L ABG pH ABG Hemoglobin 9.3 L ABG Oxyhemoglobin ABG pO2 ABG HCO3 ABG O2 Saturation ABG Base Excess ABG Potassium ABG Chloride ABG Glucose Oxyhemoglobin Sodium Potassium Chloride Carbon Dioxide BUN Creatinine Glucose POC Glucose 160 H Lactic Acid Calcium AST Phosphorus Total Protein Albumin C-Reactive Protein Arterial Blood Glucose Arterial Blood Ionized Calcium Urine WBC (Auto) Crossmatch 01/28/20 01/28/20 01/29/20 17:19 23:53 03:52 WBC RBC Hgb Hct MCHC RDW Plt Count MCH Lymph % (Auto) Lymph # Lymph # (Auto) Seg Neutrophils % Seg Neuts % (Manual) Lymphocytes % (Manual) Seg Neutrophils # Seg Neutrophils # Man Nucleated RBC % Lymphocytes # (Manual) Monocytes # (Manual) PT INR Heparin Anti-Xa Level POC ABG pO2 ABG pH 7.510 H ABG Hemoglobin 7.3 L ABG Oxyhemoglobin ABG pO2 357.0 H ABG HCO3 19.6 L ABG O2 Saturation 99.6 H ABG Base Excess -2.9 L ABG Potassium ABG Chloride ABG Glucose Oxyhemoglobin Sodium Potassium Chloride Carbon Dioxide BUN Creatinine Glucose POC Glucose 177 H 142 H Lactic Acid Calcium AST Phosphorus Total Protein Albumin C-Reactive Protein Arterial Blood Glucose Arterial Blood Ionized Calcium Urine WBC (Auto) Crossmatch 01/29/20 01/29/20 01/29/20 04:58 04:58 06:01 WBC 13.1 H RBC 2.75 L Hgb 8.6 L Hct 25.6 L MCHC RDW 17.7 H Plt Count MCH Lymph % (Auto) Lymph # Lymph # (Auto) Seg Neutrophils % Seg Neuts % (Manual) 91.0 H Lymphocytes % (Manual) 6.0 L Seg Neutrophils # Seg Neutrophils # Man 11.9 H Nucleated RBC % 1.0 H Lymphocytes # (Manual) 0.8 L Monocytes # (Manual) PT INR Heparin Anti-Xa Level POC ABG pO2 ABG pH ABG Hemoglobin ABG Oxyhemoglobin ABG pO2 ABG HCO3 ABG O2 Saturation ABG Base Excess ABG Potassium ABG Chloride ABG Glucose Oxyhemoglobin Sodium 148 H Potassium 3.5 L D Chloride 113.2 H Carbon Dioxide 21 L BUN 20 H Creatinine Glucose 137 H POC Glucose 167 H Lactic Acid Calcium 8.1 L AST Phosphorus Total Protein Albumin C-Reactive Protein Arterial Blood Glucose Arterial Blood Ionized Calcium Urine WBC (Auto) Crossmatch 01/29/20 01/29/20 01/29/20 11:45 17:52 23:49 WBC RBC Hgb Hct MCHC RDW Plt Count MCH Lymph % (Auto) Lymph # Lymph # (Auto) Seg Neutrophils % Seg Neuts % (Manual) Lymphocytes % (Manual) Seg Neutrophils # Seg Neutrophils # Man Nucleated RBC % Lymphocytes # (Manual) Monocytes # (Manual) PT INR Heparin Anti-Xa Level POC ABG pO2 ABG pH ABG Hemoglobin ABG Oxyhemoglobin ABG pO2 ABG HCO3 ABG O2 Saturation ABG Base Excess ABG Potassium ABG Chloride ABG Glucose Oxyhemoglobin Sodium Potassium Chloride Carbon Dioxide BUN Creatinine Glucose POC Glucose 185 H 226 H 141 H Lactic Acid Calcium AST Phosphorus Total Protein Albumin C-Reactive Protein Arterial Blood Glucose Arterial Blood Ionized Calcium Urine WBC (Auto) Crossmatch 01/29/20 01/30/2001/29/20 Unknown 03:24 04:00 WBC RBC Hgb 7.8 L Hct 23.5 L MCHC RDW Plt Count MCH Lymph % (Auto) Lymph # Lymph # (Auto) Seg Neutrophils % Seg Neuts % (Manual) Lymphocytes % (Manual) Seg Neutrophils # Seg Neutrophils # Man Nucleated RBC % Lymphocytes # (Manual) Monocytes # (Manual) PT INR Heparin Anti-Xa Level POC ABG pO2 ABG pH 7.485 H ABG Hemoglobin 6.7 L ABG Oxyhemoglobin ABG pO2 102.0 H ABG HCO3 ABG O2 Saturation ABG Base Excess ABG Potassium ABG Chloride ABG Glucose Oxyhemoglobin Sodium Potassium Chloride Carbon Dioxide BUN Creatinine Glucose POC Glucose Lactic Acid Calcium AST Phosphorus Total Protein Albumin C-Reactive Protein 14.80 H Arterial Blood Glucose Arterial Blood Ionized Calcium Urine WBC (Auto) Crossmatch 01/30/20 01/30/20 01/30/20 05:50 11:15 17:07 WBC RBC Hgb Hct MCHC RDW Plt Count MCH Lymph % (Auto) Lymph # Lymph # (Auto) Seg Neutrophils % Seg Neuts % (Manual) Lymphocytes % (Manual) Seg Neutrophils # Seg Neutrophils # Man Nucleated RBC % Lymphocytes # (Manual) Monocytes # (Manual) PT INR Heparin Anti-Xa Level POC ABG pO2 ABG pH ABG Hemoglobin ABG Oxyhemoglobin ABG pO2 ABG HCO3 ABG O2 Saturation ABG Base Excess ABG Potassium ABG Chloride ABG Glucose Oxyhemoglobin Sodium Potassium Chloride Carbon Dioxide BUN Creatinine Glucose POC Glucose 122 H 207 H 124 H Lactic Acid Calcium AST Phosphorus Total Protein Albumin C-Reactive Protein Arterial Blood Glucose Arterial Blood Ionized Calcium Urine WBC (Auto) Crossmatch 01/30/20 01/31/20 01/31/20 17:08 00:10 04:52 WBC RBC Hgb Hct MCHC RDW Plt Count MCH Lymph % (Auto) Lymph # Lymph # (Auto) Seg Neutrophils % Seg Neuts % (Manual) Lymphocytes % (Manual) Seg Neutrophils # Seg Neutrophils # Man Nucleated RBC % Lymphocytes # (Manual) Monocytes # (Manual) PT INR Heparin Anti-Xa Level POC ABG pO2 ABG pH 7.504 H 7.486 H ABG Hemoglobin 7.4 L 6.2 L ABG Oxyhemoglobin ABG pO2 169.2 H 121.7 H ABG HCO3 27.1 H ABG O2 Saturation 99.1 H ABG Base Excess 3.4 H ABG Potassium ABG Chloride ABG Glucose Oxyhemoglobin Sodium Potassium Chloride Carbon Dioxide BUN Creatinine Glucose POC Glucose 191 H Lactic Acid Calcium AST Phosphorus Total Protein Albumin C-Reactive Protein Arterial Blood Glucose Arterial Blood Ionized Calcium Urine WBC (Auto) Crossmatch 01/31/20 01/31/20 01/31/20 05:37 11:59 12:40 WBC RBC 2.41 L Hgb 7.5 L Hct 22.3 L MCHC RDW 22.2 H Plt Count MCH Lymph % (Auto) Lymph # Lymph # (Auto) Seg Neutrophils % Seg Neuts % (Manual) 94.0 H Lymphocytes % (Manual) 2.0 L Seg Neutrophils # Seg Neutrophils # Man 9.4 H Nucleated RBC % Lymphocytes # (Manual) 0.2 L Monocytes # (Manual) PT INR Heparin Anti-Xa Level POC ABG pO2 ABG pH ABG Hemoglobin ABG Oxyhemoglobin ABG pO2 ABG HCO3 ABG O2 Saturation ABG Base Excess ABG Potassium ABG Chloride ABG Glucose Oxyhemoglobin Sodium Potassium Chloride Carbon Dioxide BUN Creatinine Glucose POC Glucose 175 H 220 H Lactic Acid Calcium AST Phosphorus Total Protein Albumin C-Reactive Protein Arterial Blood Glucose Arterial Blood Ionized Calcium Urine WBC (Auto) Crossmatch 01/31/20 01/31/20 01/31/20 12:40 14:40 18:18 WBC RBC Hgb Hct MCHC RDW Plt Count MCH Lymph % (Auto) Lymph # Lymph # (Auto) Seg Neutrophils % Seg Neuts % (Manual) Lymphocytes % (Manual) Seg Neutrophils # Seg Neutrophils # Man Nucleated RBC % Lymphocytes # (Manual) Monocytes # (Manual) PT INR Heparin Anti-Xa Level POC ABG pO2 124.7 H ABG pH 7.542 H ABG Hemoglobin 7.8 L ABG Oxyhemoglobin ABG pO2 ABG HCO3 ABG O2 Saturation ABG Base Excess ABG Potassium ABG Chloride ABG Glucose Oxyhemoglobin Sodium 151 H Potassium 2.1 L* D Chloride 108.9 H Carbon Dioxide BUN 22 H Creatinine Glucose 194 H POC Glucose 181 H Lactic Acid Calcium 8.1 L AST Phosphorus Total Protein 4.8 L Albumin 2.3 L C-Reactive Protein Arterial Blood Glucose Arterial Blood Ionized Calcium Urine WBC (Auto) Crossmatch 02/01/20 02/01/20 02/01/20 00:11 03:14 04:32 WBC 11.9 H RBC 2.47 L Hgb 7.6 L Hct 22.8 L MCHC RDW 22.7 H Plt Count MCH Lymph % (Auto) Lymph # Lymph # (Auto) Seg Neutrophils % Seg Neuts % (Manual) 90.0 H Lymphocytes % (Manual) 5.0 L Seg Neutrophils # Seg Neutrophils # Man 10.7 H Nucleated RBC % Lymphocytes # (Manual) 0.6 L Monocytes # (Manual) PT INR Heparin Anti-Xa Level POC ABG pO2 ABG pH 7.564 H ABG Hemoglobin 7.6 L ABG Oxyhemoglobin ABG pO2 124.1 H ABG HCO3 29.6 H ABG O2 Saturation ABG Base Excess 7.0 H ABG Potassium ABG Chloride ABG Glucose Oxyhemoglobin Sodium Potassium Chloride Carbon Dioxide BUN Creatinine Glucose POC Glucose 190 H Lactic Acid Calcium AST Phosphorus Total Protein Albumin C-Reactive Protein Arterial Blood Glucose Arterial Blood Ionized Calcium Urine WBC (Auto) Crossmatch 02/01/20 02/01/20 02/01/20 04:32 05:28 11:56 WBC RBC Hgb Hct MCHC RDW Plt Count MCH Lymph % (Auto) Lymph # Lymph # (Auto) Seg Neutrophils % Seg Neuts % (Manual) Lymphocytes % (Manual) Seg Neutrophils # Seg Neutrophils # Man Nucleated RBC % Lymphocytes # (Manual) Monocytes # (Manual) PT INR Heparin Anti-Xa Level POC ABG pO2 ABG pH ABG Hemoglobin ABG Oxyhemoglobin ABG pO2 ABG HCO3 ABG O2 Saturation ABG Base Excess ABG Potassium ABG Chloride ABG Glucose Oxyhemoglobin Sodium 149 H Potassium 2.6 L* D Chloride Carbon Dioxide 33 H BUN 23 H Creatinine 0.5 L Glucose 174 H POC Glucose 187 H 195 H Lactic Acid Calcium 8.0 L AST Phosphorus 1.60 L Total Protein Albumin C-Reactive Protein Arterial Blood Glucose Arterial Blood Ionized Calcium Urine WBC (Auto) Crossmatch 02/01/20 02/01/20 02/02/20 18:15 23:35 04:33 WBC RBC Hgb Hct MCHC RDW Plt Count MCH Lymph % (Auto) Lymph # Lymph # (Auto) Seg Neutrophils % Seg Neuts % (Manual) Lymphocytes % (Manual) Seg Neutrophils # Seg Neutrophils # Man Nucleated RBC % Lymphocytes # (Manual) Monocytes # (Manual) PT INR Heparin Anti-Xa Level POC ABG pO2 ABG pH 7.549 H ABG Hemoglobin 9.8 L ABG Oxyhemoglobin ABG pO2 ABG HCO3 ABG O2 Saturation ABG Base Excess ABG Potassium ABG Chloride ABG Glucose Oxyhemoglobin Sodium Potassium Chloride Carbon Dioxide BUN Creatinine Glucose POC Glucose 226 H 252 H Lactic Acid Calcium AST Phosphorus Total Protein Albumin C-Reactive Protein Arterial Blood Glucose Arterial Blood Ionized Calcium Urine WBC (Auto) Crossmatch 02/02/20 02/02/20 02/02/20 05:25 05:25 05:40 WBC 15.5 H RBC 2.43 L Hgb 7.6 L Hct 22.9 L MCHC RDW 23.6 H Plt Count MCH Lymph % (Auto) Lymph # Lymph # (Auto) Seg Neutrophils % Seg Neuts % (Manual) 89.0 H Lymphocytes % (Manual) 3.0 L Seg Neutrophils # Seg Neutrophils # Man 13.8 H Nucleated RBC % Lymphocytes # (Manual) 0.5 L Monocytes # (Manual) 0.9 H PT INR Heparin Anti-Xa Level POC ABG pO2 ABG pH ABG Hemoglobin ABG Oxyhemoglobin ABG pO2 ABG HCO3 ABG O2 Saturation ABG Base Excess ABG Potassium ABG Chloride ABG Glucose Oxyhemoglobin Sodium Potassium 2.6 L* Chloride Carbon Dioxide 33 H BUN 26 H Creatinine Glucose 175 H POC Glucose 181 H Lactic Acid Calcium 7.9 L AST Phosphorus Total Protein Albumin C-Reactive Protein Arterial Blood Glucose Arterial Blood Ionized Calcium Urine WBC (Auto) Crossmatch 02/02/20 02/02/20 02/02/20 11:55 14:45 17:18 WBC RBC Hgb Hct MCHC RDW Plt Count MCH Lymph % (Auto) Lymph # Lymph # (Auto) Seg Neutrophils % Seg Neuts % (Manual) Lymphocytes % (Manual) Seg Neutrophils # Seg Neutrophils # Man Nucleated RBC % Lymphocytes # (Manual) Monocytes # (Manual) PT INR Heparin Anti-Xa Level POC ABG pO2 ABG pH 7.56 H ABG Hemoglobin 7.6 L ABG Oxyhemoglobin ABG pO2 ABG HCO3 ABG O2 Saturation ABG Base Excess ABG Potassium ABG Chloride ABG Glucose Oxyhemoglobin Sodium Potassium Chloride Carbon Dioxide BUN Creatinine Glucose POC Glucose 226 H 227 H Lactic Acid Calcium AST Phosphorus Total Protein Albumin C-Reactive Protein Arterial Blood Glucose Arterial Blood Ionized Calcium Urine WBC (Auto) Crossmatch 02/02/20 02/03/20 02/03/20 20:54 00:02 05:14 WBC 18.7 H RBC 2.45 L Hgb 7.6 L Hct 23.2 L MCHC RDW 23.5 H Plt Count MCH Lymph % (Auto) Lymph # Lymph # (Auto) Seg Neutrophils % Seg Neuts % (Manual) 94.0 H Lymphocytes % (Manual) 3.0 L Seg Neutrophils # Seg Neutrophils # Man 17.6 H Nucleated RBC % Lymphocytes # (Manual) 0.6 L Monocytes # (Manual) PT INR Heparin Anti-Xa Level POC ABG pO2 ABG pH ABG Hemoglobin ABG Oxyhemoglobin ABG pO2 ABG HCO3 ABG O2 Saturation ABG Base Excess ABG Potassium ABG Chloride ABG Glucose Oxyhemoglobin Sodium Potassium 3.2 L D Chloride Carbon Dioxide BUN Creatinine Glucose POC Glucose 204 H Lactic Acid Calcium AST Phosphorus Total Protein Albumin C-Reactive Protein Arterial Blood Glucose Arterial Blood Ionized Calcium Urine WBC (Auto) Crossmatch 02/03/20 02/03/20 02/03/20 05:14 05:14 05:20 WBC RBC Hgb Hct MCHC RDW Plt Count MCH Lymph % (Auto) Lymph # Lymph # (Auto) Seg Neutrophils % Seg Neuts % (Manual) Lymphocytes % (Manual) Seg Neutrophils # Seg Neutrophils # Man Nucleated RBC % Lymphocytes # (Manual) Monocytes # (Manual) PT INR Heparin Anti-Xa Level POC ABG pO2 ABG pH ABG Hemoglobin ABG Oxyhemoglobin ABG pO2 ABG HCO3 ABG O2 Saturation ABG Base Excess ABG Potassium ABG Chloride ABG Glucose Oxyhemoglobin Sodium Potassium 3.1 L Chloride Carbon Dioxide 33 H BUN 29 H Creatinine 0.5 L Glucose 160 H POC Glucose 146 H Lactic Acid Calcium 7.9 L AST Phosphorus 2.30 L Total Protein 4.8 L Albumin 2.4 L C-Reactive Protein Arterial Blood Glucose Arterial Blood Ionized Calcium Urine WBC (Auto) Crossmatch 02/03/20 02/03/20 02/03/20 12:35 18:14 23:26 WBC RBC Hgb Hct MCHC RDW Plt Count MCH Lymph % (Auto) Lymph # Lymph # (Auto) Seg Neutrophils % Seg Neuts % (Manual) Lymphocytes % (Manual) Seg Neutrophils # Seg Neutrophils # Man Nucleated RBC % Lymphocytes # (Manual) Monocytes # (Manual) PT INR Heparin Anti-Xa Level POC ABG pO2 ABG pH ABG Hemoglobin ABG Oxyhemoglobin ABG pO2 ABG HCO3 ABG O2 Saturation ABG Base Excess ABG Potassium ABG Chloride ABG Glucose Oxyhemoglobin Sodium Potassium Chloride Carbon Dioxide BUN Creatinine Glucose POC Glucose 219 H 248 H 173 H Lactic Acid Calcium AST Phosphorus Total Protein Albumin C-Reactive Protein Arterial Blood Glucose Arterial Blood Ionized Calcium Urine WBC (Auto) Crossmatch 02/04/20 02/04/20 02/04/20 05:34 05:36 06:51 WBC RBC Hgb Hct MCHC RDW Plt Count MCH Lymph % (Auto) Lymph # Lymph # (Auto) Seg Neutrophils % Seg Neuts % (Manual) Lymphocytes % (Manual) Seg Neutrophils # Seg Neutrophils # Man Nucleated RBC % Lymphocytes # (Manual) Monocytes # (Manual) PT INR Heparin Anti-Xa Level POC ABG pO2 ABG pH ABG Hemoglobin ABG Oxyhemoglobin ABG pO2 ABG HCO3 ABG O2 Saturation ABG Base Excess ABG Potassium ABG Chloride ABG Glucose Oxyhemoglobin Sodium Potassium Chloride Carbon Dioxide BUN Creatinine Glucose POC Glucose 56 L 64 L 127 H Lactic Acid Calcium AST Phosphorus Total Protein Albumin C-Reactive Protein Arterial Blood Glucose Arterial Blood Ionized Calcium Urine WBC (Auto) Crossmatch 02/04/20 02/04/20 02/04/20 11:57 13:42 13:53 WBC 19.2 H RBC 2.48 L Hgb 7.8 L Hct 23.5 L MCHC RDW 24.2 H Plt Count MCH Lymph % (Auto) Lymph # Lymph # (Auto) Seg Neutrophils % Seg Neuts % (Manual) 97.0 H Lymphocytes % (Manual) 2.0 L Seg Neutrophils # Seg Neutrophils # Man 18.6 H Nucleated RBC % Lymphocytes # (Manual) 0.4 L Monocytes # (Manual) PT INR Heparin Anti-Xa Level POC ABG pO2 118.2 H ABG pH 7.525 H ABG Hemoglobin 8.7 L ABG Oxyhemoglobin ABG pO2 ABG HCO3 ABG O2 Saturation ABG Base Excess ABG Potassium 2.8 L ABG Chloride ABG Glucose 185 H Oxyhemoglobin Sodium Potassium Chloride Carbon Dioxide BUN Creatinine Glucose POC Glucose 224 H Lactic Acid Calcium AST Phosphorus Total Protein Albumin C-Reactive Protein Arterial Blood Glucose 185 H Arterial Blood Ionized Calcium 4.5 L Urine WBC (Auto) Crossmatch 02/04/20 02/04/20 02/04/20 13:53 18:15 23:35 WBC RBC Hgb Hct MCHC RDW Plt Count MCH Lymph % (Auto) Lymph # Lymph # (Auto) Seg Neutrophils % Seg Neuts % (Manual) Lymphocytes % (Manual) Seg Neutrophils # Seg Neutrophils # Man Nucleated RBC % Lymphocytes # (Manual) Monocytes # (Manual) PT INR Heparin Anti-Xa Level POC ABG pO2 ABG pH ABG Hemoglobin ABG Oxyhemoglobin ABG pO2 ABG HCO3 ABG O2 Saturation ABG Base Excess ABG Potassium ABG Chloride ABG Glucose Oxyhemoglobin Sodium 147 H Potassium 2.8 L* Chloride Carbon Dioxide 38 H BUN 33 H Creatinine 0.5 L Glucose 202 H POC Glucose 215 H 197 H Lactic Acid Calcium AST Phosphorus Total Protein Albumin C-Reactive Protein Arterial Blood Glucose Arterial Blood Ionized Calcium Urine WBC (Auto) Crossmatch 02/05/20 02/05/20 02/05/20 01:03 04:00 04:00 WBC 26.7 H RBC 2.59 L Hgb 8.1 L Hct 24.6 L MCHC RDW 24.1 H Plt Count MCH Lymph % (Auto) 1.6 L Lymph # Lymph # (Auto) 0.4 L Seg Neutrophils % Seg Neuts % (Manual) Lymphocytes % (Manual) Seg Neutrophils # 25.9 H Seg Neutrophils # Man Nucleated RBC % Lymphocytes # (Manual) Monocytes # (Manual) PT INR Heparin Anti-Xa Level POC ABG pO2 ABG pH ABG Hemoglobin 7.1 L ABG Oxyhemoglobin ABG pO2 50.7 L ABG HCO3 29.6 H ABG O2 Saturation 82.7 L ABG Base Excess 4.8 H ABG Potassium ABG Chloride ABG Glucose Oxyhemoglobin 81.0 L Sodium 146 H Potassium Chloride Carbon Dioxide 32 H BUN 35 H Creatinine 0.5 L Glucose 226 H POC Glucose Lactic Acid Calcium AST Phosphorus Total Protein 5.1 L Albumin 2.2 L C-Reactive Protein Arterial Blood Glucose Arterial Blood Ionized Calcium Urine WBC (Auto) Crossmatch 02/05/20 02/05/20 02/06/20 05:32 17:56 00:19 WBC RBC Hgb Hct MCHC RDW Plt Count MCH Lymph % (Auto) Lymph # Lymph # (Auto) Seg Neutrophils % Seg Neuts % (Manual) Lymphocytes % (Manual) Seg Neutrophils # Seg Neutrophils # Man Nucleated RBC % Lymphocytes # (Manual) Monocytes # (Manual) PT INR Heparin Anti-Xa Level POC ABG pO2 ABG pH ABG Hemoglobin ABG Oxyhemoglobin ABG pO2 ABG HCO3 ABG O2 Saturation ABG Base Excess ABG Potassium ABG Chloride ABG Glucose Oxyhemoglobin Sodium Potassium Chloride Carbon Dioxide BUN Creatinine Glucose POC Glucose 239 H 175 H 309 H Lactic Acid Calcium AST Phosphorus Total Protein Albumin C-Reactive Protein Arterial Blood Glucose Arterial Blood Ionized Calcium Urine WBC (Auto) Crossmatch 02/06/20 02/06/20 02/06/20 04:26 04:27 05:11 WBC RBC Hgb Hct MCHC RDW Plt Count MCH Lymph % (Auto) Lymph # Lymph # (Auto) Seg Neutrophils % Seg Neuts % (Manual) Lymphocytes % (Manual) Seg Neutrophils # Seg Neutrophils # Man Nucleated RBC % Lymphocytes # (Manual) Monocytes # (Manual) PT INR Heparin Anti-Xa Level POC ABG pO2 175.3 H 157.2 H ABG pH 7.502 H 7.551 H ABG Hemoglobin 10.8 L 7.3 L ABG Oxyhemoglobin 98.3 H ABG pO2 ABG HCO3 ABG O2 Saturation ABG Base Excess ABG Potassium 3.3 L ABG Chloride 109.0 H ABG Glucose 148 H Oxyhemoglobin Sodium 148 H Potassium 3.0 L Chloride 107.3 H Carbon Dioxide 33 H BUN 33 H Creatinine 0.5 L Glucose 283 H POC Glucose Lactic Acid Calcium 7.9 L AST Phosphorus Total Protein 3.6 L D Albumin 1.2 L C-Reactive Protein Arterial Blood Glucose 148 H Arterial Blood Ionized Calcium Urine WBC (Auto) Crossmatch 02/06/20 02/06/20 02/06/20 05:40 08:45 11:52 WBC 16.3 H RBC 2.12 L Hgb 6.6 L Hct 20.3 L MCHC RDW 24.4 H Plt Count MCH Lymph % (Auto) Lymph # Lymph # (Auto) Seg Neutrophils % Seg Neuts % (Manual) 98.0 H Lymphocytes % (Manual) 1.0 L Seg Neutrophils # Seg Neutrophils # Man 16.0 H Nucleated RBC % Lymphocytes # (Manual) 0.2 L Monocytes # (Manual) PT INR Heparin Anti-Xa Level POC ABG pO2 ABG pH ABG Hemoglobin ABG Oxyhemoglobin ABG pO2 ABG HCO3 ABG O2 Saturation ABG Base Excess ABG Potassium ABG Chloride ABG Glucose Oxyhemoglobin Sodium Potassium Chloride Carbon Dioxide BUN Creatinine Glucose POC Glucose 347 H 132 H Lactic Acid Calcium AST Phosphorus Total Protein Albumin C-Reactive Protein Arterial Blood Glucose Arterial Blood Ionized Calcium Urine WBC (Auto) Crossmatch 02/06/20 02/07/20 02/07/20 18:26 00:08 05:41 WBC RBC Hgb Hct MCHC RDW Plt Count MCH Lymph % (Auto) Lymph # Lymph # (Auto) Seg Neutrophils % Seg Neuts % (Manual) Lymphocytes % (Manual) Seg Neutrophils # Seg Neutrophils # Man Nucleated RBC % Lymphocytes # (Manual) Monocytes # (Manual) PT INR Heparin Anti-Xa Level POC ABG pO2 ABG pH ABG Hemoglobin ABG Oxyhemoglobin ABG pO2 ABG HCO3 ABG O2 Saturation ABG Base Excess ABG Potassium ABG Chloride ABG Glucose Oxyhemoglobin Sodium Potassium Chloride Carbon Dioxide BUN Creatinine Glucose POC Glucose 114 H 111 H 164 H Lactic Acid Calcium AST Phosphorus Total Protein Albumin C-Reactive Protein Arterial Blood Glucose Arterial Blood Ionized Calcium Urine WBC (Auto) Crossmatch 02/07/20 02/07/20 02/07/20 11:49 17:56 23:27 WBC RBC Hgb Hct MCHC RDW Plt Count MCH Lymph % (Auto) Lymph # Lymph # (Auto) Seg Neutrophils % Seg Neuts % (Manual) Lymphocytes % (Manual) Seg Neutrophils # Seg Neutrophils # Man Nucleated RBC % Lymphocytes # (Manual) Monocytes # (Manual) PT INR Heparin Anti-Xa Level POC ABG pO2 ABG pH ABG Hemoglobin ABG Oxyhemoglobin ABG pO2 ABG HCO3 ABG O2 Saturation ABG Base Excess ABG Potassium ABG Chloride ABG Glucose Oxyhemoglobin Sodium Potassium Chloride Carbon Dioxide BUN Creatinine Glucose POC Glucose 146 H 140 H 164 H Lactic Acid Calcium AST Phosphorus Total Protein Albumin C-Reactive Protein Arterial Blood Glucose Arterial Blood Ionized Calcium Urine WBC (Auto) Crossmatch 02/08/20 02/08/20 02/08/20 03:55 04:46 04:46 WBC RBC 2.30 L Hgb 7.3 L Hct 22.0 L MCHC RDW 23.9 H Plt Count MCH Lymph % (Auto) 8.5 L Lymph # Lymph # (Auto) 0.8 L Seg Neutrophils % 87.6 H Seg Neuts % (Manual) Lymphocytes % (Manual) Seg Neutrophils # 8.7 H Seg Neutrophils # Man Nucleated RBC % Lymphocytes # (Manual) Monocytes # (Manual) PT INR Heparin Anti-Xa Level POC ABG pO2 112.8 H ABG pH 7.511 H ABG Hemoglobin 7.8 L ABG Oxyhemoglobin ABG pO2 ABG HCO3 ABG O2 Saturation ABG Base Excess ABG Potassium 2.9 L ABG Chloride ABG Glucose 112 H Oxyhemoglobin Sodium Potassium 3.1 L Chloride Carbon Dioxide 31 H BUN 29 H Creatinine 0.3 L Glucose 108 H POC Glucose Lactic Acid Calcium AST Phosphorus Total Protein Albumin C-Reactive Protein Arterial Blood Glucose 112 H Arterial Blood Ionized Calcium Urine WBC (Auto) Crossmatch 02/08/20 02/08/20 02/08/20 05:31 10:15 12:10 WBC RBC Hgb Hct MCHC RDW Plt Count MCH Lymph % (Auto) Lymph # Lymph # (Auto) Seg Neutrophils % Seg Neuts % (Manual) Lymphocytes % (Manual) Seg Neutrophils # Seg Neutrophils # Man Nucleated RBC % Lymphocytes # (Manual) Monocytes # (Manual) PT INR Heparin Anti-Xa Level POC ABG pO2 ABG pH ABG Hemoglobin ABG Oxyhemoglobin ABG pO2 ABG HCO3 ABG O2 Saturation ABG Base Excess ABG Potassium ABG Chloride ABG Glucose Oxyhemoglobin Sodium Potassium Chloride Carbon Dioxide BUN Creatinine Glucose POC Glucose 117 H 164 H 170 H Lactic Acid Calcium AST Phosphorus Total Protein Albumin C-Reactive Protein Arterial Blood Glucose Arterial Blood Ionized Calcium Urine WBC (Auto) Crossmatch 02/08/20 02/08/20 02/09/20 12:23 23:50 03:04 WBC RBC Hgb Hct MCHC RDW Plt Count MCH Lymph % (Auto) Lymph # Lymph # (Auto) Seg Neutrophils % Seg Neuts % (Manual) Lymphocytes % (Manual) Seg Neutrophils # Seg Neutrophils # Man Nucleated RBC % Lymphocytes # (Manual) Monocytes # (Manual) PT INR Heparin Anti-Xa Level POC ABG pO2 ABG pH 7.501 H ABG Hemoglobin 7.5 L ABG Oxyhemoglobin ABG pO2 ABG HCO3 ABG O2 Saturation ABG Base Excess ABG Potassium ABG Chloride ABG Glucose 143 H Oxyhemoglobin Sodium Potassium Chloride Carbon Dioxide BUN Creatinine Glucose POC Glucose 164 H 126 H Lactic Acid Calcium AST Phosphorus Total Protein Albumin C-Reactive Protein Arterial Blood Glucose 143 H Arterial Blood Ionized Calcium Urine WBC (Auto) Crossmatch 02/09/20 02/09/20 02/09/20 05:57 08:00 12:39 WBC RBC Hgb Hct MCHC RDW Plt Count MCH Lymph % (Auto) Lymph # Lymph # (Auto) Seg Neutrophils % Seg Neuts % (Manual) Lymphocytes % (Manual) Seg Neutrophils # Seg Neutrophils # Man Nucleated RBC % Lymphocytes # (Manual) Monocytes # (Manual) PT INR Heparin Anti-Xa Level POC ABG pO2 ABG pH ABG Hemoglobin ABG Oxyhemoglobin ABG pO2 ABG HCO3 ABG O2 Saturation ABG Base Excess ABG Potassium ABG Chloride ABG Glucose Oxyhemoglobin Sodium Potassium 3.3 L Chloride Carbon Dioxide 34 H BUN 27 H Creatinine 0.4 L Glucose 127 H POC Glucose 160 H 154 H Lactic Acid Calcium 8.2 L AST Phosphorus Total Protein Albumin C-Reactive Protein Arterial Blood Glucose Arterial Blood Ionized Calcium Urine WBC (Auto) Crossmatch 02/09/20 02/09/20 02/09/20 18:17 23:43 Unknown WBC RBC 2.15 L Hgb 7.0 L Hct 20.8 L MCHC RDW 23.3 H Plt Count MCH 33 H Lymph % (Auto) Lymph # Lymph # (Auto) Seg Neutrophils % Seg Neuts % (Manual) Lymphocytes % (Manual) Seg Neutrophils # Seg Neutrophils # Man Nucleated RBC % Lymphocytes # (Manual) Monocytes # (Manual) PT INR Heparin Anti-Xa Level POC ABG pO2 ABG pH ABG Hemoglobin ABG Oxyhemoglobin ABG pO2 ABG HCO3 ABG O2 Saturation ABG Base Excess ABG Potassium ABG Chloride ABG Glucose Oxyhemoglobin Sodium Potassium Chloride Carbon Dioxide BUN Creatinine Glucose POC Glucose 152 H 177 H Lactic Acid Calcium AST Phosphorus Total Protein Albumin C-Reactive Protein Arterial Blood Glucose Arterial Blood Ionized Calcium Urine WBC (Auto) Crossmatch 02/10/20 02/10/20 02/10/20 04:38 05:24 11:44 WBC RBC Hgb Hct MCHC RDW Plt Count MCH Lymph % (Auto) Lymph # Lymph # (Auto) Seg Neutrophils % Seg Neuts % (Manual) Lymphocytes % (Manual) Seg Neutrophils # Seg Neutrophils # Man Nucleated RBC % Lymphocytes # (Manual) Monocytes # (Manual) PT INR Heparin Anti-Xa Level POC ABG pO2 ABG pH 7.502 H ABG Hemoglobin 6.2 L ABG Oxyhemoglobin ABG pO2 136.0 H ABG HCO3 29.3 H ABG O2 Saturation ABG Base Excess 5.7 H ABG Potassium ABG Chloride ABG Glucose Oxyhemoglobin Sodium Potassium Chloride Carbon Dioxide BUN Creatinine Glucose POC Glucose 113 H 176 H Lactic Acid Calcium AST Phosphorus Total Protein Albumin C-Reactive Protein Arterial Blood Glucose Arterial Blood Ionized Calcium Urine WBC (Auto) Crossmatch 02/10/20 02/11/20 02/11/20 23:42 03:43 04:12 WBC RBC 2.12 L Hgb 6.9 L Hct 20.6 L MCHC RDW 23.4 H Plt Count MCH 33 H Lymph % (Auto) Lymph # Lymph # (Auto) Seg Neutrophils % 84.7 H Seg Neuts % (Manual) 83.0 H Lymphocytes % (Manual) 11.0 L Seg Neutrophils # Seg Neutrophils # Man Nucleated RBC % Lymphocytes # (Manual) 1.0 L Monocytes # (Manual) PT INR Heparin Anti-Xa Level POC ABG pO2 112.6 H ABG pH 7.480 H ABG Hemoglobin 7.2 L ABG Oxyhemoglobin ABG pO2 ABG HCO3 ABG O2 Saturation ABG Base Excess ABG Potassium ABG Chloride ABG Glucose 154 H Oxyhemoglobin Sodium Potassium Chloride Carbon Dioxide BUN Creatinine Glucose POC Glucose 149 H Lactic Acid Calcium AST Phosphorus Total Protein Albumin C-Reactive Protein Arterial Blood Glucose 154 H Arterial Blood Ionized Calcium Urine WBC (Auto) Crossmatch 02/11/20 02/11/20 02/11/20 04:12 05:50 08:22 WBC RBC Hgb Hct MCHC RDW Plt Count MCH Lymph % (Auto) Lymph # Lymph # (Auto) Seg Neutrophils % Seg Neuts % (Manual) Lymphocytes % (Manual) Seg Neutrophils # Seg Neutrophils # Man Nucleated RBC % Lymphocytes # (Manual) Monocytes # (Manual) PT INR Heparin Anti-Xa Level POC ABG pO2 ABG pH ABG Hemoglobin ABG Oxyhemoglobin ABG pO2 ABG HCO3 ABG O2 Saturation ABG Base Excess ABG Potassium ABG Chloride ABG Glucose Oxyhemoglobin Sodium 146 H Potassium Chloride Carbon Dioxide BUN 24 H Creatinine 0.4 L Glucose 168 H POC Glucose 190 H Lactic Acid Calcium 8.0 L AST Phosphorus Total Protein Albumin C-Reactive Protein Arterial Blood Glucose Arterial Blood Ionized Calcium Urine WBC (Auto) Crossmatch See Detail 02/11/20 02/11/20 02/11/20 11:41 17:33 23:40 WBC RBC Hgb Hct MCHC RDW Plt Count MCH Lymph % (Auto) Lymph # Lymph # (Auto) Seg Neutrophils % Seg Neuts % (Manual) Lymphocytes % (Manual) Seg Neutrophils # Seg Neutrophils # Man Nucleated RBC % Lymphocytes # (Manual) Monocytes # (Manual) PT INR Heparin Anti-Xa Level POC ABG pO2 ABG pH ABG Hemoglobin ABG Oxyhemoglobin ABG pO2 ABG HCO3 ABG O2 Saturation ABG Base Excess ABG Potassium ABG Chloride ABG Glucose Oxyhemoglobin Sodium Potassium Chloride Carbon Dioxide BUN Creatinine Glucose POC Glucose 260 H 132 H 54 L Lactic Acid Calcium AST Phosphorus Total Protein Albumin C-Reactive Protein Arterial Blood Glucose Arterial Blood Ionized Calcium Urine WBC (Auto) Crossmatch 02/12/20 02/12/20 02/12/20 05:16 06:45 11:48 WBC RBC Hgb 8.6 L Hct 25.2 L MCHC RDW Plt Count MCH Lymph % (Auto) Lymph # Lymph # (Auto) Seg Neutrophils % Seg Neuts % (Manual) Lymphocytes % (Manual) Seg Neutrophils # Seg Neutrophils # Man Nucleated RBC % Lymphocytes # (Manual) Monocytes # (Manual) PT INR Heparin Anti-Xa Level POC ABG pO2 ABG pH ABG Hemoglobin ABG Oxyhemoglobin ABG pO2 ABG HCO3 ABG O2 Saturation ABG Base Excess ABG Potassium ABG Chloride ABG Glucose Oxyhemoglobin Sodium Potassium Chloride Carbon Dioxide BUN Creatinine Glucose POC Glucose 127 H 163 H Lactic Acid Calcium AST Phosphorus Total Protein Albumin C-Reactive Protein Arterial Blood Glucose Arterial Blood Ionized Calcium Urine WBC (Auto) Crossmatch 02/12/20 02/12/20 02/13/20 17:25 23:53 04:30 WBC RBC Hgb Hct MCHC RDW Plt Count MCH Lymph % (Auto) Lymph # Lymph # (Auto) Seg Neutrophils % Seg Neuts % (Manual) Lymphocytes % (Manual) Seg Neutrophils # Seg Neutrophils # Man Nucleated RBC % Lymphocytes # (Manual) Monocytes # (Manual) PT INR Heparin Anti-Xa Level POC ABG pO2 ABG pH 7.463 H ABG Hemoglobin ABG Oxyhemoglobin ABG pO2 98.4 H ABG HCO3 27.7 H ABG O2 Saturation ABG Base Excess 3.7 H ABG Potassium ABG Chloride ABG Glucose Oxyhemoglobin Sodium Potassium Chloride Carbon Dioxide BUN Creatinine Glucose POC Glucose 152 H 140 H Lactic Acid Calcium AST Phosphorus Total Protein Albumin C-Reactive Protein Arterial Blood Glucose Arterial Blood Ionized Calcium Urine WBC (Auto) Crossmatch 02/13/20 02/13/2002/12/20 04:45 04:45 05:19 WBC RBC 2.73 L Hgb 8.7 L Hct 25.6 L MCHC RDW 21.3 H Plt Count MCH Lymph % (Auto) 12.0 L Lymph # Lymph # (Auto) 1.0 L Seg Neutrophils % 82.5 H Seg Neuts % (Manual) Lymphocytes % (Manual) Seg Neutrophils # Seg Neutrophils # Man Nucleated RBC % Lymphocytes # (Manual) Monocytes # (Manual) PT INR Heparin Anti-Xa Level POC ABG pO2 ABG pH ABG Hemoglobin ABG Oxyhemoglobin ABG pO2 ABG HCO3 ABG O2 Saturation ABG Base Excess ABG Potassium ABG Chloride ABG Glucose Oxyhemoglobin Sodium Potassium 3.4 L Chloride Carbon Dioxide 31 H BUN 24 H Creatinine 0.3 L Glucose 122 H POC Glucose 127 H Lactic Acid Calcium 8.0 L AST Phosphorus Total Protein 4.2 L Albumin 2.0 L C-Reactive Protein Arterial Blood Glucose Arterial Blood Ionized Calcium Urine WBC (Auto) Crossmatch 02/13/20 02/14/20 02/14/20 23:08 04:26 04:26 WBC RBC 2.74 L Hgb 8.7 L Hct 25.8 L MCHC RDW 21.3 H Plt Count MCH Lymph % (Auto) 13.2 L Lymph # Lymph # (Auto) Seg Neutrophils % 81.4 H Seg Neuts % (Manual) Lymphocytes % (Manual) Seg Neutrophils # 8.4 H Seg Neutrophils # Man Nucleated RBC % Lymphocytes # (Manual) Monocytes # (Manual) PT INR Heparin Anti-Xa Level POC ABG pO2 ABG pH ABG Hemoglobin ABG Oxyhemoglobin ABG pO2 ABG HCO3 ABG O2 Saturation ABG Base Excess ABG Potassium ABG Chloride ABG Glucose Oxyhemoglobin Sodium Potassium 3.4 L Chloride 107.6 H Carbon Dioxide BUN 20 H Creatinine 0.3 L Glucose 170 H POC Glucose 148 H Lactic Acid Calcium 8.2 L AST Phosphorus Total Protein Albumin C-Reactive Protein Arterial Blood Glucose Arterial Blood Ionized Calcium Urine WBC (Auto) Crossmatch 02/14/20 02/14/20 02/14/20 05:05 12:08 17:37 WBC RBC Hgb Hct MCHC RDW Plt Count MCH Lymph % (Auto) Lymph # Lymph # (Auto) Seg Neutrophils % Seg Neuts % (Manual) Lymphocytes % (Manual) Seg Neutrophils # Seg Neutrophils # Man Nucleated RBC % Lymphocytes # (Manual) Monocytes # (Manual) PT INR Heparin Anti-Xa Level POC ABG pO2 ABG pH ABG Hemoglobin ABG Oxyhemoglobin ABG pO2 ABG HCO3 ABG O2 Saturation ABG Base Excess ABG Potassium ABG Chloride ABG Glucose Oxyhemoglobin Sodium Potassium Chloride Carbon Dioxide BUN Creatinine Glucose POC Glucose 182 H 156 H 144 H Lactic Acid Calcium AST Phosphorus Total Protein Albumin C-Reactive Protein Arterial Blood Glucose Arterial Blood Ionized Calcium Urine WBC (Auto) Crossmatch 02/14/20 02/15/20 02/15/20 23:36 05:44 12:11 WBC RBC Hgb Hct MCHC RDW Plt Count MCH Lymph % (Auto) Lymph # Lymph # (Auto) Seg Neutrophils % Seg Neuts % (Manual) Lymphocytes % (Manual) Seg Neutrophils # Seg Neutrophils # Man Nucleated RBC % Lymphocytes # (Manual) Monocytes # (Manual) PT INR Heparin Anti-Xa Level POC ABG pO2 ABG pH ABG Hemoglobin ABG Oxyhemoglobin ABG pO2 ABG HCO3 ABG O2 Saturation ABG Base Excess ABG Potassium ABG Chloride ABG Glucose Oxyhemoglobin Sodium Potassium Chloride Carbon Dioxide BUN Creatinine Glucose POC Glucose 183 H 203 H 140 H Lactic Acid Calcium AST Phosphorus Total Protein Albumin C-Reactive Protein Arterial Blood Glucose Arterial Blood Ionized Calcium Urine WBC (Auto) Crossmatch 02/15/20 02/16/20 02/16/20 17:23 00:12 05:09 WBC RBC Hgb 8.8 L Hct 26.0 L MCHC RDW Plt Count MCH Lymph % (Auto) Lymph # Lymph # (Auto) Seg Neutrophils % Seg Neuts % (Manual) Lymphocytes % (Manual) Seg Neutrophils # Seg Neutrophils # Man Nucleated RBC % Lymphocytes # (Manual) Monocytes # (Manual) PT INR Heparin Anti-Xa Level POC ABG pO2 ABG pH ABG Hemoglobin ABG Oxyhemoglobin ABG pO2 ABG HCO3 ABG O2 Saturation ABG Base Excess ABG Potassium ABG Chloride ABG Glucose Oxyhemoglobin Sodium Potassium Chloride Carbon Dioxide BUN Creatinine Glucose POC Glucose 170 H 133 H Lactic Acid Calcium AST Phosphorus Total Protein Albumin C-Reactive Protein Arterial Blood Glucose Arterial Blood Ionized Calcium Urine WBC (Auto) Crossmatch 02/16/20 02/16/20 02/16/20 05:09 05:21 12:22 WBC RBC Hgb Hct MCHC RDW Plt Count MCH Lymph % (Auto) Lymph # Lymph # (Auto) Seg Neutrophils % Seg Neuts % (Manual) Lymphocytes % (Manual) Seg Neutrophils # Seg Neutrophils # Man Nucleated RBC % Lymphocytes # (Manual) Monocytes # (Manual) PT INR Heparin Anti-Xa Level POC ABG pO2 ABG pH ABG Hemoglobin ABG Oxyhemoglobin ABG pO2 ABG HCO3 ABG O2 Saturation ABG Base Excess ABG Potassium ABG Chloride ABG Glucose Oxyhemoglobin Sodium Potassium Chloride Carbon Dioxide 31 H BUN 18 H Creatinine 0.3 L Glucose 152 H POC Glucose 160 H 138 H Lactic Acid Calcium 7.9 L AST Phosphorus Total Protein Albumin C-Reactive Protein Arterial Blood Glucose Arterial Blood Ionized Calcium Urine WBC (Auto) Crossmatch 02/16/20 02/17/20 02/17/20 16:35 00:01 05:22 WBC RBC Hgb Hct MCHC RDW Plt Count MCH Lymph % (Auto) Lymph # Lymph # (Auto) Seg Neutrophils % Seg Neuts % (Manual) Lymphocytes % (Manual) Seg Neutrophils # Seg Neutrophils # Man Nucleated RBC % Lymphocytes # (Manual) Monocytes # (Manual) PT INR Heparin Anti-Xa Level POC ABG pO2 ABG pH ABG Hemoglobin ABG Oxyhemoglobin ABG pO2 ABG HCO3 ABG O2 Saturation ABG Base Excess ABG Potassium ABG Chloride ABG Glucose Oxyhemoglobin Sodium Potassium Chloride Carbon Dioxide BUN Creatinine Glucose POC Glucose 142 H 173 H 126 H Lactic Acid Calcium AST Phosphorus Total Protein Albumin C-Reactive Protein Arterial Blood Glucose Arterial Blood Ionized Calcium Urine WBC (Auto) Crossmatch 02/17/20 02/17/20 02/18/20 11:35 18:08 00:15 WBC RBC Hgb Hct MCHC RDW Plt Count MCH Lymph % (Auto) Lymph # Lymph # (Auto) Seg Neutrophils % Seg Neuts % (Manual) Lymphocytes % (Manual) Seg Neutrophils # Seg Neutrophils # Man Nucleated RBC % Lymphocytes # (Manual) Monocytes # (Manual) PT INR Heparin Anti-Xa Level POC ABG pO2 ABG pH ABG Hemoglobin ABG Oxyhemoglobin ABG pO2 ABG HCO3 ABG O2 Saturation ABG Base Excess ABG Potassium ABG Chloride ABG Glucose Oxyhemoglobin Sodium Potassium Chloride Carbon Dioxide BUN Creatinine Glucose POC Glucose 113 H 136 H 160 H Lactic Acid Calcium AST Phosphorus Total Protein Albumin C-Reactive Protein Arterial Blood Glucose Arterial Blood Ionized Calcium Urine WBC (Auto) Crossmatch 02/18/20 02/18/20 02/18/20 04:43 04:43 05:30 WBC RBC 3.24 L Hgb Hct MCHC RDW 20.1 H Plt Count 455 H MCH Lymph % (Auto) Lymph # Lymph # (Auto) Seg Neutrophils % Seg Neuts % (Manual) Lymphocytes % (Manual) Seg Neutrophils # Seg Neutrophils # Man Nucleated RBC % Lymphocytes # (Manual) Monocytes # (Manual) PT INR Heparin Anti-Xa Level POC ABG pO2 ABG pH ABG Hemoglobin ABG Oxyhemoglobin ABG pO2 ABG HCO3 ABG O2 Saturation ABG Base Excess ABG Potassium ABG Chloride ABG Glucose Oxyhemoglobin Sodium Potassium Chloride Carbon Dioxide BUN Creatinine 0.3 L Glucose 118 H POC Glucose 139 H Lactic Acid Calcium AST Phosphorus Total Protein Albumin C-Reactive Protein Arterial Blood Glucose Arterial Blood Ionized Calcium Urine WBC (Auto) Crossmatch Chest x-ray: other (none today) Allied health notes reviewed: nursing
[2020-02-18] MEDS: METOPROLOL TARTRATE 25 MG TAB PO SCH ×2 (14:09→21:11)
--- NOTE | 2020-02-18 19:17 | Progress Note ---
Assessment and Plan Assessment and plan: --s/p PEA arrest night of 01/28/2020 and 02/05/2020 s/p CPR per ACLS protocol --Anoxic/hypoxic brain injury[status post PEA cardiac arrest]; supportive care Poor prognosis --Acute hypoxic respiratory failure; s/p tracheostomy,02/13/2020 per surgery, trach care, ventilatory support status post extubation 02/02/2020 but had to be reintubated on 02/04 --Dysphagia s/p PEG placement; continue PEG feeds per protocol --Shock/ septic shock; s/p Levophed,Closely monitor --Unstageable sacral decubitus ulcer, infected/POA s/p wound debridement on 01/15. Continue wound vac , Proteus bacteremia On zosyn 4.5 g IV q8h total 6 weeks per ID stop date 02/27/2020 --Sepsis /Proteus bacteremia: Due to sacral decubitus Long-term Zosyn per ID stop date 02/27/2020[total 6 weeks] --Hypokalemia /Hypernatremia; resolved --Anemia ; received 1 unit PRBC, now Hb 8.8 -- Diabetes mellitus; Blood sugars well controlled, A1c 5.3 Accu-Chek,SSC, long-acting insulin as needed Tube feeding diet -- Hydropneumothorax, not POA Patient developed hydropneumothorax on 01/15. Surgery evaluated s/p chest tube placed on 01/15. Improved, s/p chest tube removed 01/22, extubated 02/02/2020 Reintubated 02/05/2020 , tracheostomy 02/13/2020 -- large Left pleural effusion 01/25 01/27; s/p bronchoscopy and Therapeutic suctioning of the lungs done by grade teacher -- UTI (urinary tract infection)Completed antibiotics --h/o Bilateral pulmonary embolism 7 months ago Repeat CTA chest and LE doppler showed no acute PE or DVT, eliquis stopped -- Dementia: Continue donepezil --Severe protein-calorie malnutrition PEG placed 01/13. PEG feeds per protocol --DVT prophylaxis; SCDs --Disposition; possible LTAC placement Closely monitor the patient and adjust management as needed Plan of care reviewed with the patient and her nurse The high probability of a clinically significant, sudden or life threatening deterioration of the [Respiratory, CAR RENTAL MANAGER, CVs] system(s) required my full and direct attention, intervention and personal management. The aggregate critical care time was [31] minutes. This time is in addition to time spent performing reported procedures but includes the following: [x] Data Review and interpretation [x] Patient assessment and monitoring of vital signs [x] Documentation [x] Medication orders and management . Patient currently with PSV/CPAP FiO2 50%, PEEP of 6 and pressure s upport of 10. Continue PSV trials as tolerated and wean per pulmonary. Recall ID consultation. 02/08/2020. Patient with Proteus bacteremia likely from sacral decubitus. Continue Zosyn 4.5 g IV every 8 hours until stop date of 02/26. Patient still on mechanical ventilation AC mode rate 12, tidal volume 350, FiO2 30% and PEEP of 6. Poor prognosis. Consider hospice. Continue scopolamine for secretion control. Continue pressors to maintain MAP > 65; currently off. 02/09/2020. Continue Zosyn 4.5 g IV every 8 hours for Proteus bacteremia with end date of 02/27/2020. Continue wound care/wound VAC per surgery. Patient still on mechanical ventilation AC mode rate 12, tidal volume 350, FiO2 30% and PEEP of 6. Poor prognosis. Consider hospice. Continue scopolamine for secretion control. Currently off pressors. 02/09; evaluated by surgery, planning tracheostomy pending COVID test 02/10; possible tracheostomy today pending COVID test, surgery following 02/11; patient n.p.o. from midnight, possible tracheostomy tomorrow Received 1 unit of PRBC, Hb improved to 8.6 02/12; scheduled for tracheostomy today 02/13; trach care, bilateral upper extremity L edema and swelling, check venous Doppler 02/14; right upper extremity swelling edema, DC the line, elevate the limb 02/15;RUE venous Doppler no DVT, superficial thrombophlebitis, elevate the limb and supportive care 02/16; pending LTAC/SNF placement 02/17; pending LTAC/SNF placement History Interval history: Late entry; I have seen and examined the patient at the bedside in ICU this morning, during morning rounds Patient's chart, current medications, tests and reports reviewed Patient with tracheostomy and PEG placement, on mechanical ventilation Patient is noncommunicative Not in acute distress Vital signs noted Hospitalist Physical - Constitutional Vitals: Temp Pulse Resp BP Pulse Ox 98.4 F 93 H 13 119/71 100 02/18/20 16:00 02/18/20 18:00 02/18/20 18:00 02/18/20 18:00 02/18/20 18:00 General appearance: Present: no acute distress, well-nourished, other (Trach eostomy on vent) - EENT Eyes: Present: PERRL, EOM intact - Neck Neck: Present: supple. Absent: enlarged thyroid - Respiratory Respiratory effort: normal Respiratory: bilateral: diminished, rhonchi, negative: rales, wheezing - Cardiovascular Rhythm: regular Heart Sounds: Present: S1 & S2 - Extremities Extremities: no ischemia, abnormal Extremity abnormal: edema - Abdominal General gastrointestinal: soft, non-tender, non-distended, normal bowel sounds - Integumentary Integumentary: Present: clear, warm - Psychiatric Psychiatric: other (On ventilatory support noncommunicative) - Neurologic Neurologic: other (On ventilatory support noncommunicative) Results - Labs CBC & Chem 7: 02/18/20 04:43 02/18/20 04:43 Labs: Laboratory Last Values WBC 7.0 K/mm3 (4.5-11.0) 02/18/20 04:43 RBC 3.24 M/mm3 (3.65-5.03) L 02/18/20 04:43 Hgb 10.4 gm/dl (10.1-14.3) 02/18/20 04:43 Hct 30.9 % (30.3-42.9) 02/18/20 04:43 MCV 95 fl (79-97) 02/18/20 04:43 MCH 32 pg (28-32) 02/18/20 04:43 MCHC 34 % (30-34) 02/18/20 04:43 RDW 20.1 % (13.2-15.2) H 02/18/20 04:43 Plt Count 455 K/mm3 (140-440) H 02/18/20 04:43 Lymph % (Auto) 13.2 % (13.4-35.0) L 02/14/20 04:26 [place] % (Auto) 3.6 % (0.0-7.3) 02/14/20 04:26 Eos % (Auto) 1.0 % (0.0-4.3) 02/14/20 04:26 Baso % (Auto) 0.8 % (0.0-1.8) 02/14/20 04:26 Lymph # (Auto) 1.4 K/mm3 (1.2-5.4) 02/14/20 04:26 [place] # (Auto) 0.4 K/mm3 (0.0-0.8) 02/14/20 04:26 Eos # (Auto) 0.1 K/mm3 (0.0-0.4) 02/14/20 04:26 Baso # (Auto) 0.1 K/mm3 (0.0-0.1) 02/14/20 04:26 Add Manual Diff Complete 02/11/20 04:12 Total Counted 100 02/11/20 04:12 Seg Neutrophils % 81.4 % (40.0-70.0) H 02/14/20 04:26 Seg Neuts % (Manual) 83.0 % (40.0-70.0) H 02/11/20 04:12 Band Neutrophils % 0 % 02/11/20 04:12 Lymphocytes % (Manual) 11.0 % (13.4-35.0) L 02/11/20 04:12 Reactive Lymphs % (Man) 0 % 02/11/20 04:12 Monocytes % (Manual) 5.0 % (0.0-7.3) 02/11/20 04:12 Eosinophils % (Manual) 1.0 % (0.0-4.3) 02/11/20 04:12 Basophils % (Manual) 0 % (0.0-1.8) 02/11/20 04:12 Metamyelocytes % 0 % 02/11/20 04:12 Myelocytes % 0 % 02/11/20 04:12 Promyelocytes % 0 % 02/11/20 04:12 Blast Cells % 0 % 02/11/20 04:12 Nucleated RBC % Not Reportable 02/11/20 04:12 Seg Neutrophils # 8.4 K/mm3 (1.8-7.7) H 02/14/20 04:26 Seg Neutrophils # Man 7.6 K/mm3 (1.8-7.7) 02/11/20 04:12 Band Neutrophils # 0.0 K/mm3 02/11/20 04:12 Lymphocytes # (Manual) 1.0 K/mm3 (1.2-5.4) L 02/11/20 04:12 Abs React Lymphs (Man) 0.0 K/mm3 02/11/20 04:12 Monocytes # (Manual) 0.5 K/mm3 (0.0-0.8) 02/11/20 04:12 Eosinophils # (Manual) 0.1 K/mm3 (0.0-0.4) 02/11/20 04:12 Basophils # (Manual) 0.0 K/mm3 (0.0-0.1) 02/11/20 04:12 Metamyelocytes # 0.0 K/mm3 02/11/20 04:12 Myelocytes # 0.0 K/mm3 02/11/20 04:12 Promyelocytes # 0.0 K/mm3 02/11/20 04:12 Blast Cells # 0.0 K/mm3 02/11/20 04:12 WBC Morphology Not Reportable 02/11/20 04:12 Hypersegmented Neuts Not Reportable 02/11/20 04:12 Hyposegmented Neuts Not Reportable 02/11/20 04:12 Hypogranular Neuts Not Reportable 02/11/20 04:12 Smudge Cells Not Reportable 02/11/20 04:12 Toxic Granulation Not Reportable 02/11/20 04:12 Toxic Vacuolation Not Reportable 02/11/20 04:12 Dohle Bodies Not Reportable 02/11/20 04:12 Pelger-Huet Anomaly Not Reportable 02/11/20 04:12 [place]ata Rods Not Reportable 02/11/20 04:12 Platelet Estimate Consistent w auto 02/11/20 04:12 Clumped Platelets Not Reportable 02/11/20 04:12 Plt Clumps, EDTA Not Reportable 02/11/20 04:12 Large Platelets Not Reportable 02/11/20 04:12 Giant Platelets Not Reportable 02/11/20 04:12 Platelet Satelliting Not Reportable 02/11/20 04:12 Plt Morphology Comment Not Reportable 02/11/20 04:12 RBC Morphology Not Reportable 02/11/20 04:12 Dimorphic RBCs Not Reportable 02/11/20 04:12 Polychromasia Not Reportable 02/11/20 04:12 Hypochromasia Not Reportable 02/11/20 04:12 Poikilocytosis Not Reportable 02/11/20 04:12 Anisocytosis 2+ 02/11/20 04:12 Microcytosis Not Reportable 02/11/20 04:12 Macrocytosis Few 02/11/20 04:12 Spherocytes Not Reportable 02/11/20 04:12 Pappenheimer Bodies Not Reportable 02/11/20 04:12 Sickle Cells Not Reportable 02/11/20 04:12 Target Cells Few 02/11/20 04:12 Tear Drop Cells Not Reportable 02/11/20 04:12 Ovalocytes Not Reportable 02/11/20 04:12 Helmet Cells Not Reportable 02/11/20 04:12 [place] Bodies Not Reportable 02/11/20 04:12 Elbe Rings Not Reportable 02/11/20 04:12 [facility] Cells Not Reportable 02/11/20 04:12 Bite Cells Not Reportable 02/11/20 04:12 Crenated Cell Not Reportable 02/11/20 04:12 Elliptocytes Not Reportable 02/11/20 04:12 Acanthocytes (Spur) Not Reportable 02/11/20 04:12 Rouleaux Not Reportable 02/11/20 04:12 Hemoglobin C Crystals Not Reportable 02/11/20 04:12 Schistocytes Not Reportable 02/11/20 04:12 Malaria parasites Not Reportable 02/11/20 04:12 [place] Bodies Not Reportable 02/11/20 04:12 Hem Pathologist Commnt No 02/11/20 04:12 APTT 33.9 Sec. (24.2-36.6) 01/26/20 16:30 PT 14.4 Sec. (12.2-14.9) 02/02/20 05:25 INR 1.11 (0.87-1.13) 02/02/20 05:25 Heparin Anti-Xa Level 0.74 U.I./ml (0.3-0.7) H 01/28/20 08:50 ABG pH 7.463 pH Units (7.350-7.450) H 02/13/20 04:30 POC ABG pCO2 38.5 mmHg (32.0-48.0) 02/11/20 03:43 ABG pCO2 39.6 mm Hg 02/13/20 04:30 POC ABG pO2 112.6 mmHg (83-108) H 02/11/20 03:43 ABG pO2 98.4 mm Hg (80.0-90.0) H 02/13/20 04:30 POC ABG HCO3 28 02/11/20 03:43 ABG HCO3 27.7 mmol/L (20.0-26.0) H 02/13/20 04:30 ABG O2 Saturation 97.7 % (95.0-99.0) 02/13/20 04:30 ABG O2 Content 19.3 (0.0-44) 02/13/20 04:30 POC ABG Base Excess 4.2 02/11/20 03:43 ABG Base Excess 3.7 mmol/L (-2.0-3.0) H 02/13/20 04:30 ABG Hemoglobin 14.4 gm/dl (12.0-16.0) 02/13/20 04:30 ABG Oxyhemoglobin 96.7 (94-98) 02/09/20 03:04 ABG Carboxyhemoglobin 1.8 % (0.0-5.0) 02/13/20 04:30 ABG Methemoglobin 0.6 % (0.0-1.5) 02/13/20 04:30 ABG Sodium 138.5 mmol/L (136.0-145.0) 02/11/20 03:43 ABG Potassium 3.4 mmol/L (3.40-4.50) 02/11/20 03:43 ABG Chloride 107.0 mmol/L (98-107) 02/11/20 03:43 ABG Glucose 154 mg/dL (65-95) H 02/11/20 03:43 Oxyhemoglobin 95.3 % (95.0-99.0) 02/13/20 04:30 Carboxyhemoglobin TNR 02/08/20 03:55 FiO2 25 % 02/13/20 04:30 Sodium 141 mmol/L (137-145) 02/18/20 04:43 Potassium 4.1 mmol/L (3.6-5.0) 02/18/20 04:43 Chloride 104.3 mmol/L (98-107) 02/18/20 04:43 Carbon Dioxide 24 mmol/L (22-30) D 02/18/20 04:43 Anion Gap 17 mmol/L 02/18/20 04:43 BUN 17 mg/dL (7-17) 02/18/20 04:43 Creatinine 0.3 mg/dL (0.6-1.2) L 02/18/20 04:43 Estimated GFR > 60 ml/min 02/18/20 04:43 BUN/Creatinine Ratio 57 % 02/18/20 04:43 Glucose 118 mg/dL (65-100) H 02/18/20 04:43 POC Glucose 139 (70-105) H 02/18/20 17:51 Hemoglobin A1c 5.3 % (4-6) 01/11/20 00:45 Lactic Acid 1.30 mmol/L (0.7-2.0) 01/26/20 23:27 Calcium 8.6 mg/dL (8.4-10.2) 02/18/20 04:43 Phosphorus 2.30 mg/dL (2.5-4.5) L 02/03/20 05:14 Magnesium 2.00 mg/dL (1.7-2.3) 02/16/20 05:09 Total Bilirubin 0.20 mg/dL (0.1-1.2) 02/13/20 04:45 AST 29 units/L (5-40) 02/13/20 04:45 ALT 38 units/L (7-56) 02/13/20 04:45 Alkaline Phosphatase 109 units/L (35-129) 02/13/20 04:45 C-Reactive Protein 14.80 mg/dL (0.00-1.30) H 01/29/20 Unknown Total Protein 4.2 g/dL (6.3-8.2) L 02/13/20 04:45 Albumin 2.0 g/dL (3.9-5) L 02/13/20 04:45 Albumin/Globulin Ratio 0.9 % 02/13/20 04:45 TSH 2.440 mlU/mL (0.270-4.200) 01/10/20 10:10 Procalcitonin 1.86 ng/mL (<0.15) 01/29/20 Unknown Arterial Blood Glucose 154 mg/dL (65-95) H 02/11/20 03:43 Arterial Blood Ionized Calcium 4.6 mg/dL (4.6-5.3) 02/11/20 03:43 Urine Color [place] (Yellow) 01/08/20 Unknown Urine Turbidity Cloudy (Clear) 01/08/20 Unknown Urine pH 5.0 (5.0-7.0) 01/08/20 Unknown Ur Specific [place] 1.018 (1.003-1.030) 01/08/20 Unknown Urine Protein 30 mg/dl mg/dL (Negative) 01/08/20 Unknown Urine Glucose (UA) Neg mg/dL (Negative) 01/08/20 Unknown Urine Ketones Neg mg/dL (Negative) 01/08/20 Unknown Urine Blood Mod (Negative) 01/08/20 Unknown Urine Nitrite Neg (Negative) 01/08/20 Unknown Urine Bilirubin Neg (Negative) 01/08/20 Unknown Urine Urobilinogen < 2.0 mg/dL (<2.0) 01/08/20 Unknown Ur Leukocyte Esterase Sm (Negative) 01/08/20 Unknown Urine WBC (Auto) 11.0 /HPF (0.0-6.0) H 01/08/20 Unknown Urine RBC (Auto) 7.0 /HPF (0.0-6.0) 01/08/20 Unknown U Epithel Cells (Auto) < 1.0 /HPF (0-13.0) 01/08/20 Unknown Urine Bacteria (Auto) 1+ /HPF (Negative) 01/08/20 Unknown Urine Mucus 2+ /HPF 01/08/20 Unknown Urine Yeast (Budding) 1+ /HPF 01/08/20 Unknown Vancomycin Trough 7.9 ug/mL (5.0-20.0) 01/17/20 16:04 Coronavirus (PCR) Negative (Negative) 02/10/20 10:06 Blood Type A POSITIVE 02/11/20 08:22 Antibody Screen Negative 02/11/20 08:22 Crossmatch See Detail 02/11/20 08:22 Mejía/IV: Voiding Method Indwelling Catheter IV Catheter Type [Left Wrist] INT / Saline Lock IV Catheter Type [Left Upper PICC Line arm] IV Catheter Type [Right Upper Mid-line arm] IV Catheter Type [Right Peripheral IV Forearm] Active Medications - Current Medications Current Medications: Generic Name Dose Route Start Last Admin Trade Name Freq PRN Reason Stop Dose Admin Acetaminophen 650 mg 01/08/20 23:14 01/18/20 06:03 Tylenol PO 650 mg Q4H PRN Administration Pain MILD(1-3)/Fever >100.5/GARCIA Lipase/Protease/Amylase 1 each 01/17/20 08:37 Pancreazchai Sommers 10,500 Unit FEEDTUBE PRN PRN For Clogged Feeding Tube Atorvastatin Calcium 10 mg 01/09/20 22:00 02/17/20 21:03 Atorvastatin PO 10 mg QHS BRO Administration Dextrose 0 ml 01/08/20 23:14 02/10/20 17:18 D50w (25gm) Syringe IV 10 ml Q30MIN PRN Administration Hypoglycemia Protocol Donepezil HCl 10 mg 01/09/20 22:00 02/17/20 21:03 Aricept PO 10 mg QHS BRO Administration Famotidine 20 mg 01/27/20 10:00 02/18/20 10:13 Pepcid PO 20 mg BID BRO Administration Ferrous Sulfate 308 mg 02/09/20 12:00 02/18/20 10:13 Ferrous Sulfate FEEDTUBE 308 mg DAILY BRO Administration Fluticasone Propionate 100 mcg 01/25/20 20:00 01/26/20 06:09 Flonase NS 100 mcg QDAY PRN Administration Nasal Congestion Glycopyrrolate 2 mg 02/18/20 22:00 Glycopyrrolate PO BID [facility] Heparin Sodium (Porcine) 5,000 unit 01/28/20 10:00 02/18/20 10:13 Heparin SUB-Q 5,000 unit Q12HR BRO Administration Hydrophilic Ointment 1 applic 01/28/20 10:57 Vaseline Lip Therapy TP Q2HR PRN Dry Lips Piperacillin Sod/Tazobactam Sod 4.5 gm in 100 mls @ 200 mls/hr 01/19/20 14:00 02/18/20 14:10 Zosyn/Ns 4.5gm/100ml IV 02/27/20 22:29 200 mls/hr Q8HR BRO Administration Protocol Insulin Human Regular 0 unit 01/27/20 12:00 02/18/20 18:22 Humulin R SUB-Q Not Given Q6HR [facility] Protocol Loperamide HCl 2 mg 02/14/20 12:00 02/14/20 16:48 Loperamide PO 2 mg Q2H PRN Administration Diarrhea Magnesium Hydroxide 30 ml 01/08/20 23:14 Milk Of Magnesia PO Q4H PRN Constipation Metoprolol Tartrate 12.5 mg 02/18/20 14:00 02/18/20 14:09 Metoprolol PO 12.5 mg BID BRO Administration Mirtazapine 15 mg 01/09/20 22:00 02/17/20 21:03 Remeron PO 15 mg QHS BRO Administration Multi-Ingred Cream/Lotion/Oil/Oint 1 applic 01/28/20 10:57 Artificial Tears Ophth Oint OU Q4HR PRN Dry Eye(s) Multivitamins 5 ml 02/09/20 12:00 02/18/20 10:13 Centrum Liq PO 5 ml QDAY BRO Administration Ondansetron HCl 4 mg 01/08/20 23:14 Zofran IV Q8H PRN Nausea And Vomiting Oxycodone/Acetaminophen 1 tab 02/17/20 13:28 Percocet 5/325 PO Q4H PRN Pain, Moderate (4-6) Scopolamine 1 each 02/05/20 10:00 02/17/20 09:11 Transderm-Scop TD 1 each Q3D BRO Administration Simple Syrup 15 ml 01/17/20 08:37 Simple Syrup FEEDTUBE PRN PRN Hypoglycemia Simple Syrup 30 ml 01/17/20 08:37 02/11/20 23:43 Simple Syrup FEEDTUBE 30 ml PRN PRN Administration Hypoglycemia Sodium Bicarbonate 325 mg 01/17/20 08:37 Sodium Bicarbonate FEEDTUBE PRN PRN For Clogged Feeding Tube Sodium Chloride 10 ml 01/09/20 10:00 02/18/20 10:14 Sodium Chloride Flush Syringe 10 Ml IV 10 ml BID BRO Administration Sodium Chloride 10 ml 01/08/20 23:14 Sodium Chloride Flush Syringe 10 Ml IV PRN PRN LINE FLUSH Trazodone HCl 25 mg 01/09/20 22:00 02/17/20 21:03 Desyrel PO 25 mg QHS BRO Administration Nutrition/Malnutrition Assess - Dietary Evaluation Nutrition/Malnutrition Findings: Nutrition Notes Start: 01/09/20 12:13 Freq: Status: Active Protocol: Document 02/16/20 11:23 NICK (Rec: 02/16/20 11:25 NICK [id number]) Nutrition Notes Initial or Follow up Reassessment Current Diagnosis Decubitus(Pressure Ulcer), Diabetes,Sepsis Other Pertinent Diagnosis UTI, dementia, PE, Sacral wound Current Diet Vital AF 1.2 at 50ml/hr Labs/Tests BUN 18 Cr 0.3 Pertinent Medications Reviewed Height 5 ft 2 in Weight 72.8 kg [place] Body Weight (kg) 50.00 BMI 29.3 Weight change and time frame Wt change noted. Pt has edema. Weight Status Overweight Subjective/Other Information FU for TF. TF running at goal and pt tolerating. Percent of energy/protein needs met: 91%/100% Burn Absent Trauma Absent GI Symptoms Diarrhea Current % PO Negligible Minimum of two criteria Yes Fluid Accumulation Moderate to Severe (severe) Reduced Special Systems Technician Strength Measurably Reduced (severe) #3 Nutrition Diagnosis Malnutrition Diagnosis Progress(for reassessment Continues documentation) #2 Nutrition Diagnosis Inadequate oral intake Diagnosis Progress(for reassessment Continues documentation) #1 Nutrition Diagnosis Increased nutrient needs ( specify in comment below) Comments: protein Diagnosis Progress(for reassessment Continues documentation) Is patient on ventilator? Yes Is Patient Ambulatory and/or Out of Bed No REE-([place]-confined to bed) 1447.344 Kcal/Kg value to use for calculation 22 Approximate Energy Requirements Using 1602 kcal/Kg Calculation Used for Recommendations Kcal/kg Additional Notes Pro: 81-98 g (1.25-1.5 g/kg) Fluid: 1ml/kcal Nutrition Intervention Change Diet Order: Continue Nutrition Support: Vital AF 1.2 at 50ml/hr Flush 250ml q4h per MD Kcal 1,440 Protein (gm) 90 Fluid (mL) 973 Goal #1 Meet at least 80% of kcal and protein needs via TF Goal #2 TF tolerance Goal #3 Wound healing Anticipated Discharge Needs: TF Follow-Up By: 02/20/20 Additional Comments F/U for stable TF
[2020-02-18] MEDS: traZODone 50 MG TAB PO SCH (21:12)
[2020-02-18] MEDS: DONEPEZIL 10 MG TAB PO SCH (21:12)
[2020-02-18] MEDS: GLYCOPYRROLATE 2 MG TAB PO SCH (21:12)
[2020-02-18] MEDS: MIRTAZAPINE 15 MG TAB PO SCH (22:54)
[2020-02-19] MEDS: INSULIN REGULAR, HUMAN 100 UNIT/ML 3ML VIAL SUB-Q SCH ×4 (00:51→18:52)
[2020-02-19] MEDS: PIPERACIL/TAZOBACTA 4.5/NS 100 4.5 GM/100 ML VIAL IV SCH ×3 (05:47→21:31)
--- NOTE | 2020-02-19 08:37 | Progress Note ---
Assessment and Plan Assessment and plan: --Acute hypoxic respiratory failure; vent dependent s/p tracheostomy,02/13/2020 per surgery, trach care, ventilatory support status post extubation 02/02/2020 but had to be reintubated on 02/04 We will continue current care, pulmonary critical following --Dysphagia s/p PEG placement; continue PEG feeds per protocol --Shock/ septic shock; s/p Levophed,monitor off Levophed --s/p PEA arrest night of 01/28/2020 and 02/05/2020 s/p CPR per ACLS protocol --Anoxic/hypoxic brain injury[status post PEA cardiac arrest]; supportive care Poor prognosis, family aware --Unstageable sacral decubitus ulcer, infected/POA s/p wound debridement on 01/15. Continue wound vac , Proteus bacteremia On zosyn 4.5 g IV q8h total 6 weeks per ID stop date 02/27/2020 --Sepsis /Proteus bacteremia: Due to sacral decubitus Long-term Zosyn per ID stop date 02/27/2020[total 6 weeks] --Hypokalemia /Hypernatremia; resolved --Anemia ; received 1 unit PRBC, now Hb 8.8 -- Diabetes mellitus; Blood sugars well controlled, A1c 5.3 Accu-Chek,SSC, long-acting insulin as needed Tube feeding diet -- Hydropneumothorax, not POA Patient developed hydropneumothorax on 01/15. Surgery evaluated s/p chest tube placed on 01/15. Improved, s/p chest tube removed 01/22, extubated 02/02/2020 Reintubated 02/05/2020 , tracheostomy 02/13/2020 -- large Left pleural effusion 01/25 01/27; s/p bronchoscopy and Therapeutic suctioning of the lungs done by glazier stained glass -- UTI (urinary tract infection)Completed antibiotics --h/o Bilateral pulmonary embolism 7 months ago Repeat CTA chest and LE doppler showed no acute PE or DVT, eliquis stopped -- Dementia: Continue donepezil --Severe protein-calorie malnutrition PEG placed 01/13. PEG feeds per protocol --DVT prophylaxis; SCDs --Disposition; possible LTAC placement Closely monitor the patient and adjust management as needed Plan of care reviewed with the patient and her nurse The high probability of a clinically significant, sudden or life threatening deterioration of the [Respiratory, REMNANT SORTER, CVs] system(s) required my full and direct attention, intervention and personal management. The aggregate critical care time was [31] minutes. This time is in addition to time spent performing reported procedures but includes the following: [x] Data Review and interpretation [x] Patient assessment and monitoring of vital signs [x] Documentation [x] Medication orders and management . Patient currently with PSV/CPAP FiO2 50%, PEEP of 6 and pressure support of 10. Continue PSV trials as tolerated and wean per pulmonary. Recall ID consultation. 02/08/2020. Patient with Proteus bacteremia likely from sacral decubitus. Continue Zosyn 4.5 g IV every 8 hours until stop date of 02/26. Patient still on mechanical ventilation AC mode rate 12, tidal volume 350, FiO2 30% and PEEP of 6. Poor prognosis. Consider hospice. Continue scopolamine for secretion control. Continue pressors to maintain MAP > 65; currently off. 02/09/2020. Continue Zosyn 4.5 g IV every 8 hours for Proteus bacteremia with end date of 02/27/2020. Continue wound care/wound VAC per surgery. Patient still on mechanical ventilation AC mode rate 12, tidal volume 350, FiO2 30% and PEEP of 6. Poor prognosis. Consider hospice. Continue scopolamine for secretion control. Currently off pressors. 02/09; evaluated by surgery, planning tracheostomy pending COVID test 02/10; possible tracheostomy today pending COVID test, surgery following 02/11; patient n.p.o. from midnight, possible tracheostomy tomorrow Received 1 unit of PRBC, Hb improved to 8.6 02/12; scheduled for tracheostomy today 02/13; trach care, bilateral upper extremity L edema and swelling, check venous Doppler 02/14; right upper extremity swelling edema, DC the line, elevate the limb 02/15;RUE venous Doppler no DVT, superficial thrombophlebitis, elevate the limb and supportive care 02/16; pending LTAC/SNF placement 02/17; pending LTAC/SNF placement 02/18; trach and PEG, on ventilatory support, awaiting LTAC placement. Sacral decubitus long-term a antibiotics Zosyn stop date 02/27/2020 Disposition; Awaiting LTAC/SNF placement Brief history; 69-year-old -[place] female with known history of dementia, diabetes mellitus and pulmonary embolism was admitted through the emergency room from the skilled nursing on 01/07 for decreased responsiveness, lethargy and hypotension. Patient had sepsis UTI and sacral decubitus ulcer evaluated by ID, medications optimized, patient went into acute hypoxic respiratory failure requiring intubation admitted to ICU, extubated, patient sustained cardiac arrest x2, Requiring reintubation, became vent dependent, surgery evaluated underwent trach and PEG, currently patient is awaiting LTAC/SNF placement Patient remains vent dependent, with severe metabolic and hypoxic encephalopathy. Patient has unstageable sacral decubitus ulcer status post debridement Sepsis on long-term antibiotics total 6 weeks per ID, stop date 02/27/2020 History Interval history: I have seen and examined the patient at the bedside this morning in ICU Patient's chart, current medications overnight events reviewed Noncommunicative, alert and awake,s/p trach and PEG on ventilatory support Vital signs noted Hospitalist Physical - Constitutional Vitals: Temp Pulse Resp BP Pulse Ox 98.1 F 101 H 11 L 137/66 100 02/19/20 04:00 02/19/20 08:25 02/19/20 08:25 02/19/20 08:25 02/19/20 08:25 General appearance: Present: no acute distress, well-nourished, other (Tracheostomy on vent) - EENT Eyes: Present: PERRL, EOM intact - Neck Neck: Present: supple, normal ROM, other - Respiratory Respiratory effort: normal (Tracheostomy) Respiratory: bilateral: diminished, rhonchi, negative: rales, wheezing - Cardiovascular Rhythm: regular Heart Sounds: Present: S1 & S2 - Extremities Extremities: abnormal (Contracted) Extremity abnormal: edema - Abdominal General gastrointestinal: soft, non-tender, non-distended, normal bowel sounds, other (PEG in place) - Integumentary Integumentary: Present: clear, warm - Psychiatric Psychiatric: other (Tracheostomy on vent) - Neurologic Neurologic: other (Tracheostomy on vent) Results - Labs CBC & Chem 7: 02/18/20 04:43 02/18/20 04:43 Labs: Laboratory Last Values WBC 7.0 K/mm3 (4.5-11.0) 02/18/20 04:43 RBC 3.24 M/mm3 (3.65-5.03) L 02/18/20 04:43 Hgb 10.4 gm/dl (10.1-14.3) 02/18/20 04:43 Hct 30.9 % (30.3-42.9) 02/18/20 04:43 MCV 95 fl (79-97) 02/18/20 04:43 MCH 32 pg (28-32) 02/18/20 04:43 MCHC 34 % (30-34) 02/18/20 04:43 RDW 20.1 % (13.2-15.2) H 02/18/20 04:43 Plt Count 455 K/mm3 (140-440) H 02/18/20 04:43 Lymph % (Auto) 13.2 % (13.4-35.0) L 02/14/20 04:26 [place] % (Auto) 3.6 % (0.0-7.3) 02/14/20 04:26 Eos % (Auto) 1.0 % (0.0-4.3) 02/14/20 04:26 Baso % (Auto) 0.8 % (0.0-1.8) 02/14/20 04:26 Lymph # (Auto) 1.4 K/mm3 (1.2-5.4) 02/14/20 04:26 [place] # (Auto) 0.4 K/mm3 (0.0-0.8) 02/14/20 04:26 Eos # (Auto) 0.1 K/mm3 (0.0-0.4) 02/14/20 04:26 Baso # (Auto) 0.1 K/mm3 (0.0-0.1) 02/14/20 04:26 Add Manual Diff Complete 02/11/20 04:12 Total Counted 100 02/11/20 04:12 Seg Neutrophils % 81.4 % (40.0-70.0) H 02/14/20 04:26 Seg Neuts % (Manual) 83.0 % (40.0-70.0) H 02/11/20 04:12 Band Neutrophils % 0 % 02/11/20 04:12 Lymphocytes % (Manual) 11.0 % (13.4-35.0) L 02/11/20 04:12 Reactive Lymphs % (Man) 0 % 02/11/20 04:12 Monocytes % (Manual) 5.0 % (0.0-7.3) 02/11/20 04:12 Eosinophils % (Manual) 1.0 % (0.0-4.3) 02/11/20 04:12 Basophils % (Manual) 0 % (0.0-1.8) 02/11/20 04:12 Metamyelocytes % 0 % 02/11/20 04:12 Myelocytes % 0 % 02/11/20 04:12 Promyelocytes % 0 % 02/11/20 04:12 Blast Cells % 0 % 02/11/20 04:12 Nucleated RBC % Not Reportable 02/11/20 04:12 Seg Neutrophils # 8.4 K/mm3 (1.8-7.7) H 02/14/20 04:26 Seg Neutrophils # Man 7.6 K/mm3 (1.8-7.7) 02/11/20 04:12 Band Neutrophils # 0.0 K/mm3 02/11/20 04:12 Lymphocytes # (Manual) 1.0 K/mm3 (1.2-5.4) L 02/11/20 04:12 Abs React Lymphs (Man) 0.0 K/mm3 02/11/20 04:12 Monocytes # (Manual) 0.5 K/mm3 (0.0-0.8) 02/11/20 04:12 Eosinophils # (Manual) 0.1 K/mm3 (0.0-0.4) 02/11/20 04:12 Basophils # (Manual) 0.0 K/mm3 (0.0-0.1) 02/11/20 04:12 Metamyelocytes # 0.0 K/mm3 02/11/20 04:12 Myelocytes # 0.0 K/mm3 02/11/20 04:12 Promyelocytes # 0.0 K/mm3 02/11/20 04:12 Blast Cells # 0.0 K/mm3 02/11/20 04:12 WBC Morphology Not Reportable 02/11/20 04:12 Hypersegmented Neuts Not Reportable 02/11/20 04:12 Hyposegmented Neuts Not Reportable 02/11/20 04:12 Hypogranular Neuts Not Reportable 02/11/20 04:12 Smudge Cells Not Reportable 02/11/20 04:12 Toxic Granulation Not Reportable 02/11/20 04:12 Toxic Vacuolation Not Reportable 02/11/20 04:12 Dohle Bodies Not Reportable 02/11/20 04:12 Pelger-Huet Anomaly Not Reportable 02/11/20 04:12 [place]ata Rods Not Reportable 02/11/20 04:12 Platelet Estimate Consistent w auto 02/11/20 04:12 Clumped Platelets Not Reportable 02/11/20 04:12 Plt Clumps, EDTA Not Reportable 02/11/20 04:12 Large Platelets Not Reportable 02/11/20 04:12 Giant Platelets Not Reportable 02/11/20 04:12 Platelet Satelliting Not Reportable 02/11/20 04:12 Plt Morphology Comment Not Reportable 02/11/20 04:12 RBC Morphology Not Reportable 02/11/20 04:12 Dimorphic RBCs Not Reportable 02/11/20 04:12 Polychromasia Not Reportable 02/11/20 04:12 Hypochromasia Not Reportable 02/11/20 04:12 Poikilocytosis Not Reportable 02/11/20 04:12 Anisocytosis 2+ 02/11/20 04:12 Microcytosis Not Reportable 02/11/20 04:12 Macrocytosis Few 02/11/20 04:12 Spherocytes Not Reportable 02/11/20 04:12 Pappenheimer Bodies Not Reportable 02/11/20 04:12 Sickle Cells Not Reportable 02/11/20 04:12 Target Cells Few 02/11/20 04:12 Tear Drop Cells Not Reportable 02/11/20 04:12 Ovalocytes Not Reportable 02/11/20 04:12 Helmet Cells Not Reportable 02/11/20 04:12 Lombardi-[place] Bodies Not Reportable 02/11/20 04:12 [place] Rings Not Reportable 02/11/20 04:12 Leonidas Cells Not Reportable 02/11/20 04:12 Bite Cells Not Reportable 02/11/20 04:12 Crenated Cell Not Reportable 02/11/20 04:12 Elliptocytes Not Reportable 02/11/20 04:12 Acanthocytes (Spur) Not Reportable 02/11/20 04:12 Rouleaux Not Reportable 02/11/20 04:12 Hemoglobin C Crystals Not Reportable 02/11/20 04:12 Schistocytes Not Reportable 02/11/20 04:12 Malaria parasites Not Reportable 02/11/20 04:12 Gideon Bodies Not Reportable 02/11/20 04:12 Hem Pathologist Commnt No 02/11/20 04:12 APTT 33.9 Sec. (24.2-36.6) 01/26/20 16:30 PT 14.4 Sec. (12.2-14.9) 02/02/20 05:25 INR 1.11 (0.87-1.13) 02/02/20 05:25 Heparin Anti-Xa Level 0.74 U.I./ml (0.3-0.7) H 01/28/20 08:50 ABG pH 7.463 pH Units (7.350-7.450) H 02/13/20 04:30 POC ABG pCO2 38.5 mmHg (32.0-48.0) 02/11/20 03:43 ABG pCO2 39.6 mm Hg 02/13/20 04:30 POC ABG pO2 112.6 mmHg (83-108) H 02/11/20 03:43 ABG pO2 98.4 mm Hg (80.0-90.0) H 02/13/20 04:30 POC ABG HCO3 28 02/11/20 03:43 ABG HCO3 27.7 mmol/L (20.0-26.0) H 02/13/20 04:30 ABG O2 Saturation 97.7 % (95.0-99.0) 02/13/20 04:30 ABG O2 Content 19.3 (0.0-44) 02/13/20 04:30 POC ABG Base Excess 4.2 02/11/20 03:43 ABG Base Excess 3.7 mmol/L (-2.0-3.0) H 02/13/20 04:30 ABG Hemoglobin 14.4 gm/dl (12.0-16.0) 02/13/20 04:30 ABG Oxyhemoglobin 96.7 (94-98) 02/09/20 03:04 ABG Carboxyhemoglobin 1.8 % (0.0-5.0) 02/13/20 04:30 ABG Methemoglobin 0.6 % (0.0-1.5) 02/13/20 04:30 ABG Sodium 138.5 mmol/L (136.0-145.0) 02/11/20 03:43 ABG Potassium 3.4 mmol/L (3.40-4.50) 02/11/20 03:43 ABG Chloride 107.0 mmol/L (98-107) 02/11/20 03:43 ABG Glucose 154 mg/dL (65-95) H 02/11/20 03:43 Oxyhemoglobin 95.3 % (95.0-99.0) 02/13/20 04:30 Carboxyhemoglobin TNR 02/08/20 03:55 FiO2 25 % 02/13/20 04:30 Sodium 141 mmol/L (137-145) 02/18/20 04:43 Potassium 4.1 mmol/L (3.6-5.0) 02/18/20 04:43 Chloride 104.3 mmol/L (98-107) 02/18/20 04:43 Carbon Dioxide 24 mmol/L (22-30) D 02/18/20 04:43 Anion Gap 17 mmol/L 02/18/20 04:43 BUN 17 mg/dL (7-17) 02/18/20 04:43 Creatinine 0.3 mg/dL (0.6-1.2) L 02/18/20 04:43 Estimated GFR > 60 ml/min 02/18/20 04:43 BUN/Creatinine Ratio 57 % 02/18/20 04:43 Glucose 118 mg/dL (65-100) H 02/18/20 04:43 POC Glucose 169 (70-105) H 02/19/20 05:45 Hemoglobin A1c 5.3 % (4-6) 01/11/20 00:45 Lactic Acid 1.30 mmol/L (0.7-2.0) 01/26/20 23:27 Calcium 8.6 mg/dL (8.4-10.2) 02/18/20 04:43 Phosphorus 2.30 mg/dL (2.5-4.5) L 02/03/20 05:14 Magnesium 2.00 mg/dL (1.7-2.3) 02/16/20 05:09 Total Bilirubin 0.20 mg/dL (0.1-1.2) 02/13/20 04:45 AST 29 units/L (5-40) 02/13/20 04:45 ALT 38 units/L (7-56) 02/13/20 04:45 Alkaline Phosphatase 109 units/L (35-129) 02/13/20 04:45 C-Reactive Protein 14.80 mg/dL (0.00-1.30) H 01/29/20 Unknown Total Protein 4.2 g/dL (6.3-8.2) L 02/13/20 04:45 Albumin 2.0 g/dL (3.9-5) L 02/13/20 04:45 Albumin/Globulin Ratio 0.9 % 02/13/20 04:45 TSH 2.440 mlU/mL (0.270-4.200) 01/10/20 10:10 Procalcitonin 1.86 ng/mL (<0.15) 01/29/20 Unknown Arterial Blood Glucose 154 mg/dL (65-95) H 02/11/20 03:43 Arterial Blood Ionized Calcium 4.6 mg/dL (4.6-5.3) 02/11/20 03:43 Urine Color [place] (Yellow) 01/08/20 Unknown Urine Turbidity Cloudy (Clear) 01/08/20 Unknown Urine pH 5.0 (5.0-7.0) 01/08/20 Unknown Ur Specific [place] 1.018 (1.003-1.030) 01/08/20 Unknown Urine Protein 30 mg/dl mg/dL (Negative) 01/08/20 Unknown Urine Glucose (UA) Neg mg/dL (Negative) 01/08/20 Unknown Urine Ketones Neg mg/dL (Negative) 01/08/20 Unknown Urine Blood Mod (Negative) 01/08/20 Unknown Urine Nitrite Neg (Negative) 01/08/20 Unknown Urine Bilirubin Neg (Negative) 01/08/20 Unknown Urine Urobilinogen < 2.0 mg/dL (<2.0) 01/08/20 Unknown Ur Leukocyte Esterase Sm (Negative) 01/08/20 Unknown Urine WBC (Auto) 11.0 /HPF (0.0-6.0) H 01/08/20 Unknown Urine RBC (Auto) 7.0 /HPF (0.0-6.0) 01/08/20 Unknown U Epithel Cells (Auto) < 1.0 /HPF (0-13.0) 01/08/20 Unknown Urine Bacteria (Auto) 1+ /HPF (Negative) 01/08/20 Unknown Urine Mucus 2+ /HPF 01/08/20 Unknown Urine Yeast (Budding) 1+ /HPF 01/08/20 Unknown Vancomycin Trough 7.9 ug/mL (5.0-20.0) 01/17/20 16:04 Coronavirus (PCR) Negative (Negative) 02/10/20 10:06 Blood Type A POSITIVE 02/11/20 08:22 Antibody Screen Negative 02/11/20 08:22 Crossmatch See Detail 02/11/20 08:22 Mejía/IV: Voiding Method Indwelling Catheter IV Catheter Type [Left Wrist] INT / Saline Lock IV Catheter Type [Left Upper PICC Line arm] IV Catheter Type [Right Upper Mid-line arm] IV Catheter Type [Right Peripheral IV Forearm] Active Medications - Current Medications Current Medications: Generic Name Dose Route Start Last Admin Trade Name Freq PRN Reason Stop Dose Admin Acetaminophen 650 mg 01/08/20 23:14 01/18/20 06:03 Tylenol PO 650 mg Q4H PRN Administration Pain MILD(1-3)/Fever >100.5/GARCIA Lipase/Protease/Amylase 1 each 01/17/20 08:[address] 10,500 Unit FEEDTUBE PRN PRN For Clogged Feeding Tube Atorvastatin Calcium 10 mg 01/09/20 22:00 02/18/20 22:54 Atorvastatin PO 10 mg QHS BRO Administration Dextrose 0 ml 01/08/20 23:14 02/10/20 17:18 D50w (25gm) Syringe IV 10 ml Q30MIN PRN Administration Hypoglycemia Protocol Donepezil HCl 10 mg 01/09/20 22:00 02/18/20 21:12 Aricept PO 10 mg QHS BRO Administration Famotidine 20 mg 01/27/20 10:00 02/18/20 21:12 Pepcid PO 20 mg BID BRO Administration Ferrous Sulfate 308 mg 02/09/20 12:00 02/18/20 10:13 Ferrous Sulfate FEEDTUBE 308 mg DAILY BRO Administration Fluticasone Propionate 100 mcg 01/25/20 20:00 01/26/20 06:09 Flonase NS 100 mcg QDAY PRN Administration Nasal Congestion Glycopyrrolate 2 mg 02/18/20 22:00 02/18/20 21:12 Glycopyrrolate PO 2 mg BID BRO Administration Heparin Sodium (Porcine) 5,000 unit 01/28/20 10:00 02/18/20 21:12 Heparin SUB-Q 5,000 unit Q12HR BRO Administration Hydrophilic Ointment 1 applic 01/28/20 10:57 Vaseline Lip Therapy TP Q2HR PRN Dry Lips Piperacillin Sod/Tazobactam Sod 4.5 gm in 100 mls @ 200 mls/hr 01/19/20 14:00 02/19/20 05:47 Zosyn/Ns 4.5gm/100ml IV 02/27/20 22:29 200 mls/hr Q8HR BRO Administration Protocol Insulin Human Regular 0 unit 01/27/20 12:00 02/19/20 00:51 Humulin R SUB-Q Not Given Q6HR [facility] Protocol Loperamide HCl 2 mg 02/14/20 12:00 02/14/20 16:48 Loperamide PO 2 mg Q2H PRN Administration Diarrhea Magnesium Hydroxide 30 ml 01/08/20 23:14 Milk Of Magnesia PO Q4H PRN Constipation Metoprolol Tartrate 12.5 mg 02/18/20 14:00 02/18/20 21:11 Metoprolol PO 12.5 mg BID BRO Administration Mirtazapine 15 mg 01/09/20 22:00 02/18/20 22:54 Remeron PO 15 mg QHS BRO Administration Multi-Ingred Cream/Lotion/Oil/Oint 1 applic 01/28/20 10:57 Artificial Tears Ophth Oint OU Q4HR PRN Dry Eye(s) Multivitamins 5 ml 02/09/20 12:00 02/18/20 10:13 Centrum Liq PO 5 ml QDAY BRO Administration Ondansetron HCl 4 mg 01/08/20 23:14 Zofran IV Q8H PRN Nausea And Vomiting Oxycodone/Acetaminophen 1 tab 02/17/20 13:28 Percocet 5/325 PO Q4H PRN Pain, Moderate (4-6) Scopolamine 1 each 02/05/20 10:00 02/17/20 09:11 Transderm-Scop TD 1 each Q3D BRO Administration Simple Syrup 15 ml 01/17/20 08:37 Simple Syrup FEEDTUBE PRN PRN Hypoglycemia Simple Syrup 30 ml 01/17/20 08:37 02/11/20 23:43 Simple Syrup FEEDTUBE 30 ml PRN PRN Administration Hypoglycemia Sodium Bicarbonate 325 mg 01/17/20 08:37 Sodium Bicarbonate FEEDTUBE PRN PRN For Clogged Feeding Tube Sodium Chloride 10 ml 01/09/20 10:00 02/18/20 21:13 Sodium Chloride Flush Syringe 10 Ml IV 10 ml BID BRO Administration Sodium Chloride 10 ml 01/08/20 23:14 Sodium Chloride Flush Syringe 10 Ml IV PRN PRN LINE FLUSH Trazodone HCl 25 mg 01/09/20 22:00 02/18/20 21:12 Desyrel PO 25 mg QHS BRO Administration Nutrition/Malnutrition Assess - Dietary Evaluation Nutrition/Malnutrition Findings: Nutrition Notes Start: 01/09/20 12:13 Freq: Status: Active Protocol: Document 02/16/20 11:23 (Rec: 02/16/20 11:25 [id number]) Nutrition Notes Initial or Follow up Reassessment Current Diagnosis Decubitus(Pressure Ulcer), Diabetes,Sepsis Other Pertinent Diagnosis UTI, dementia, PE, Sacral wound Current Diet Vital AF 1.2 at 50ml/hr Labs/Tests BUN 18 Cr 0.3 Pertinent Medications Reviewed Height 5 ft 2 in Weight 72.8 kg [place] Body Weight (kg) 50.00 BMI 29.3 Weight change and time frame Wt change noted. Pt has edema. Weight Status Overweight Subjective/Other Information FU for TF. TF running at goal and pt tolerating. Percent of energy/protein needs met: 91%/100% Burn Absent Trauma Absent GI Symptoms Diarrhea Current % PO Negligible Minimum of two criteria Yes Fluid Accumulation Moderate to Severe (severe) Reduced Integration Developer Strength Measurably Reduced (severe) #3 Nutrition Diagnosis Malnutrition Diagnosis Progress(for reassessment Continues documentation) #2 Nutrition Diagnosis Inadequate oral intake Diagnosis Progress(for reassessment Continues documentation) #1 Nutrition Diagnosis Increased nutrient needs ( specify in comment below) Comments: protein Diagnosis Progress(for reassessment Continues documentation) Is patient on ventilator? Yes Is Patient Ambulatory and/or Out of Bed No REE-([place]-St. Jeor-confined to bed) 1447.344 Kcal/Kg value to use for calculation 22 Approximate Energy Requirements Using 1602 kcal/Kg Calculation Used for Recommendations Kcal/kg Additional Notes Pro: 81-98 g (1.25-1.5 g/kg) Fluid: 1ml/kcal Nutrition Intervention Change Diet Order: Continue Nutrition Support: Vital AF 1.2 at 50ml/hr Flush 250ml q4h per MD Kcal 1,440 Protein (gm) 90 Fluid (mL) 973 Goal #1 Meet at least 80% of kcal and protein needs via TF Goal #2 TF tolerance Goal #3 Wound healing Anticipated Discharge Needs: TF Follow-Up By: 02/20/20 Additional Comments F/U for stable TF
[2020-02-19] MEDS: METOPROLOL TARTRATE 25 MG TAB PO SCH ×2 (09:55→23:13)
[2020-02-19] MEDS: GLYCOPYRROLATE 2 MG TAB PO SCH ×2 (09:56→21:41)
[2020-02-19] MEDS: FAMOTIDINE 20 MG TAB PO SCH ×2 (09:56→21:41)
[2020-02-19] MEDS: FERROUS SULFATE 308 MG (62mg Elemental Iron) / 7 ML ELIXIR FEEDTUBE SCH (09:56)
[2020-02-19] MEDS: MULTIVITAMINS 5 ML ORAL LIQUID PO SCH (09:56)
[2020-02-19] MEDS: HEPARIN 5,000 UNIT/1 ML VIAL SUB-Q SCH ×2 (10:01→21:31)
--- NOTE | 2020-02-19 11:04 | Progress Note ---
Assessment and Plan Severe sepsis with shock. Left lung atelectasis. Left pleural effusion. Acute hypoxemic respiratory failure on MVS s/p Tracheostomy s/p Cardiopulamanry arrest with ROSC x2 Severe sepsis with shock Acute possibly on chronic encephalopathy. History of diabetes. Urinary tract infection. History of pulmonary embolism, diagnosed several months ago. Sacral decubitus ulcer. Dementia. Anemia Right cephalic vein superficial venous thrombosis -Trach care, airway clearance , secretion management -SBT daily start ATP trials today -Analgesia per CPOT score -Continue with VTE prophylaxis, midline has been removed. No indication for therapeutic anticoagulation at this time -Keep potassium at 4, Mag at 2 and Phos at 2.5 to optimize respiratory muscle function -Supportive transfusions as indicated to keep HgB >7g/dL to help with wound heal ing -Optimize nutritional support -CXR, ABG as clinically indicated -CBC, BMP as clinically indicated -Discharge planning- discharge loacation will be determined by how well she tolerates weaning trials -Monitor hemodynamics closely -VAP bundle addressed -Wean FIO2 for O2 sats >92%, currently on FIO2 of 28 % -Aspiration precautions, HOB >40 -Enteric nutritional support- has a PEG - continue bronchodilators with pulmonary hygiene per RT - continue accuchecks with glycemic control per SSI (While critically ill target blood glucose of 140-180 mg/dL; avoid hypoglycemia) - avoid nephrotoxins, renally dose all medications - continue to avoid benzodiazepines, reduce the possibility of delirium - complete antibiotics -on Zosyn for sacral osteomyelitis - prn analgesia per CPOT score - Maintenance of sleep-wake cycle, avoid delirium -VTE prophylaxis with Heparin - Stress ulcer prophylaxis with Famotidine - PT/OT/ROM exercises - continue mobility protocol, frequent turning and off loading to prevent further pressure ulcers -Wound care with wound vac - Monitor hemodynamics closely - continue other care per attending / other consultants Discussed with RT, RN, Clinical pharmacist and case management during ICU-IDT rounds CONDITION: CRITICAL PROGNOSIS: GUARDED CODE STATUS: FULL CODE The high probability of a clinically significant, sudden or life-threatening deterioration of the [respiratory, cardiovascular & neurologic] system(s) required my full and direct attention, intervention and personal management. The aggregate critical care time was [32] minutes without overlap. Time includes spent on; [x] Data Review and interpretation [x] Patient assessment and monitoring of vital signs [x] Documentation [x] Medication orders and management Subjective Date of service: 02/19/20 Principal diagnosis: Septic Shock; S/P Cardiac Arrest; Ac. hypoxemic resp failure; UTI Interval history: Patient is seen today for: PEA arrest with ROSC, trach to MVS; Severe sepsis with shock ; Acute hypoxemic respiratory failure; Acute possibly on chronic encephalopathy; DM II ; UTI ; VTE Seen and examined at bedside; 24hour events reviewed; nursing and respiratory care staff consulted; no adverse overnight events reported to me; resting peacefully in bed; No fevers, no vomiting. s/p trach , awake and alert but not obeying commands. Not on any pressors, off all sedation. No overnight events. On full support this morning AC-VC 12/300/25%+6 Objective Vital Signs - 12hr 02/18/20 02/18/20 02/19/20 23:15 23:30 00:00 Temperature 98.8 F Pulse Rate 81 82 74 Pulse Rate [ 83 From Monitor] Respiratory 22 25 H 25 H Rate Blood Pressure 125/74 130/71 109/74 O2 Sat by Pulse 100 100 100 Oximetry 02/19/20 02/19/20 02/19/20 00:28 00:30 01:00 Temperature Pulse Rate 100 H 88 81 Pulse Rate [ From Monitor] Respiratory 25 H 26 H Rate Blood Pressure 109/74 119/74 127/64 O2 Sat by Pulse 100 100 100 Oximetry 02/19/20 02/19/20 02/19/20 01:30 02:01 02:30 Temperature Pulse Rate 77 82 86 Pulse Rate [ From Monitor] Respiratory 17 20 20 Rate Blood Pressure 124/58 116/56 124/64 O2 Sat by Pulse 100 100 100 Oximetry 02/19/20 02/19/20 02/19/20 03:01 03:30 04:00 Temperature 98.1 F Pulse Rate 82 77 88 Pulse Rate [ 84 From Monitor] Respiratory 24 19 20 Rate Blood Pressure 124/64 108/61 118/72 O2 Sat by Pulse 100 100 100 Oximetry 02/19/20 02/19/20 02/19/20 04:30 05:00 05:30 Temperature Pulse Rate 101 H 99 H 98 H Pulse Rate [ From Monitor] Respiratory 24 25 H 24 Rate Blood Pressure 118/72 134/68 130/70 O2 Sat by Pulse 100 100 100 Oximetry 02/19/20 02/19/20 02/19/20 06:00 06:30 08:25 Temperature Pulse Rate 88 87 101 H Pulse Rate [ From Monitor] Respiratory 24 22 11 L Rate Blood Pressure 126/59 126/60 137/66 O2 Sat by Pulse 100 100 100 Oximetry 02/19/20 02/19/20 08:33 09:55 Temperature Pulse Rate 102 H 95 H Pulse Rate [ From Monitor] Respiratory 24 Rate Blood Pressure 137/66 132/67 O2 Sat by Pulse 100 Oximetry Constitutional: no acute distress, alert, other (elderly chronically ill looking female [place] [facility] [place] Eyes: non-icteric ENT: oropharynx moist, other (trach) Neck: supple, no lymphadenopathy Effort: normal Ascultation: Bilateral: clear, diminished breath sounds, rales (bases predominant), rhonchi (scant) Percussion: Bilateral: not dull Cardiovascular: regular rate and rhythm, other (S1,S2) Gastrointestinal: normoactive bowel sounds, soft, non-tender, other (PEG in place) Integumentary: decubitus ulcer Extremities: no cyanosis, pulses normal, no ischemia or petechiae, edema, other (bilateral upper extremity edema) Neurologic: pupils equal and round, other (awake and alert, not obeying comman ds) Psychiatric: other (Unable to assess secondary to mental status) CBC and BMP: 02/20/20 08:24 02/20/20 08:24 ABG, PT/INR, D-dimer: ABG ABG pH 7.463 pH Units (7.350-7.450) H 02/13/20 04:30 POC ABG pCO2 38.5 mmHg (32.0-48.0) 02/11/20 03:43 ABG pCO2 39.6 mm Hg 02/13/20 04:30 POC ABG pO2 112.6 mmHg (83-108) H 02/11/20 03:43 ABG pO2 98.4 mm Hg (80.0-90.0) H 02/13/20 04:30 POC ABG HCO3 28 02/11/20 03:43 ABG O2 Saturation 97.7 % (95.0-99.0) 02/13/20 04:30 PT/INR, D-dimer PT 14.4 Sec. (12.2-14.9) 02/02/20 05:25 INR 1.11 (0.87-1.13) 02/02/20 05:25 Abnormal lab findings: Abnormal Labs 01/08/20 01/08/20 01/08/20 16:29 16:29 16:29 WBC 13.5 H RBC Hgb Hct MCHC RDW 15.5 H Plt Count MCH Lymph % (Auto) Lymph # Lymph # (Auto) Seg Neutrophils % Seg Neuts % (Manual) 85.0 H Lymphocytes % (Manual) 11.0 L Seg Neutrophils # Seg Neutrophils # Man 11.5 H Nucleated RBC % Lymphocytes # (Manual) Monocytes # (Manual) PT INR Heparin Anti-Xa Level POC ABG pO2 ABG pH ABG Hemoglobin ABG Oxyhemoglobin ABG pO2 ABG HCO3 ABG O2 Saturation ABG Base Excess ABG Potassium ABG Chloride ABG Glucose Oxyhemoglobin Sodium 161 H* Potassium Chloride 125.5 H Carbon Dioxide 20 L BUN 30 H Creatinine Glucose 115 H POC Glucose Lactic Acid 2.20 H* Calcium 7.9 L AST 48 H Phosphorus Total Protein Albumin 2.5 L C-Reactive Protein Arterial Blood Glucose Arterial Blood Ionized Calcium Urine WBC (Auto) Crossmatch 01/08/20 01/08/20 01/08/20 19:02 23:30 Unknown WBC RBC Hgb Hct MCHC RDW Plt Count MCH Lymph % (Auto) Lymph # Lymph # (Auto) Seg Neutrophils % Seg Neuts % (Manual) Lymphocytes % (Manual) Seg Neutrophils # Seg Neutrophils # Man Nucleated RBC % Lymphocytes # (Manual) Monocytes # (Manual) PT INR Heparin Anti-Xa Level POC ABG pO2 ABG pH ABG Hemoglobin ABG Oxyhemoglobin ABG pO2 ABG HCO3 ABG O2 Saturation ABG Base Excess ABG Potassium ABG Chloride ABG Glucose Oxyhemoglobin Sodium Potassium Chloride Carbon Dioxide BUN Creatinine Glucose POC Glucose Lactic Acid 2.10 H* 2.50 H* Calcium AST Phosphorus Total Protein Albumin C-Reactive Protein Arterial Blood Glucose Arterial Blood Ionized Calcium Urine WBC (Auto) 11.0 H Crossmatch 01/09/20 01/09/20 01/09/20 00:19 00:54 05:52 WBC 13.5 H RBC 3.02 L Hgb 9.0 L D Hct 27.4 L D MCHC RDW Plt Count MCH Lymph % (Auto) 9.1 L Lymph # Lymph # (Auto) Seg Neutrophils % 87.6 H Seg Neuts % (Manual) Lymphocytes % (Manual) Seg Neutrophils # 11.8 H Seg Neutrophils # Man Nucleated RBC % Lymphocytes # (Manual) Monocytes # (Manual) PT INR Heparin Anti-Xa Level POC ABG pO2 ABG pH ABG Hemoglobin ABG Oxyhemoglobin ABG pO2 ABG HCO3 ABG O2 Saturation ABG Base Excess ABG Potassium ABG Chloride ABG Glucose Oxyhemoglobin Sodium Potassium Chloride Carbon Dioxide BUN Creatinine Glucose POC Glucose 118 H 116 H Lactic Acid Calcium AST Phosphorus Total Protein Albumin C-Reactive Protein Arterial Blood Glucose Arterial Blood Ionized Calcium Urine WBC (Auto) Crossmatch 01/09/20 01/09/20 01/09/20 05:52 05:52 13:03 WBC RBC Hgb Hct MCHC RDW Plt Count MCH Lymph % (Auto) Lymph # Lymph # (Auto) Seg Neutrophils % Seg Neuts % (Manual) Lymphocytes % (Manual) Seg Neutrophils # Seg Neutrophils # Man Nucleated RBC % Lymphocytes # (Manual) Monocytes # (Manual) PT 17.1 H INR 1.36 H Heparin Anti-Xa Level POC ABG pO2 ABG pH ABG Hemoglobin ABG Oxyhemoglobin ABG pO2 ABG HCO3 ABG O2 Saturation ABG Base Excess ABG Potassium ABG Chloride ABG Glucose Oxyhemoglobin Sodium 162 H* Potassium 3.0 L D Chloride 128.3 H Carbon Dioxide BUN 23 H Creatinine Glucose POC Glucose 55 L Lactic Acid Calcium 7.6 L AST Phosphorus Total Protein Albumin C-Reactive Protein Arterial Blood Glucose Arterial Blood Ionized Calcium Urine WBC (Auto) Crossmatch 01/09/20 01/09/20 01/09/20 21:22 21:50 22:28 WBC RBC Hgb Hct MCHC RDW Plt Count MCH Lymph % (Auto) Lymph # Lymph # (Auto) Seg Neutrophils % Seg Neuts % (Manual) Lymphocytes % (Manual) Seg Neutrophils # Seg Neutrophils # Man Nucleated RBC % Lymphocytes # (Manual) Monocytes # (Manual) PT INR Heparin Anti-Xa Level POC ABG pO2 ABG pH ABG Hemoglobin ABG Oxyhemoglobin ABG pO2 ABG HCO3 ABG O2 Saturation ABG Base Excess ABG Potassium ABG Chloride ABG Glucose Oxyhemoglobin Sodium 159 H Potassium 5.1 H D Chloride 128.5 H Carbon Dioxide 16 L BUN 23 H Creatinine Glucose 51 L POC Glucose 52 L 106 H Lactic Acid Calcium 8.2 L AST Phosphorus Total Protein Albumin C-Reactive Protein Arterial Blood Glucose Arterial Blood Ionized Calcium Urine WBC (Auto) Crossmatch 01/10/20 01/10/20 01/10/20 05:23 09:11 10:10 WBC 13.4 H RBC Hgb Hct MCHC RDW Plt Count MCH Lymph % (Auto) 7.2 L Lymph # 1.0 L Lymph # (Auto) Seg Neutrophils % 90.0 H Seg Neuts % (Manual) Lymphocytes % (Manual) Seg Neutrophils # 12.0 H Seg Neutrophils # Man Nucleated RBC % Lymphocytes # (Manual) Monocytes # (Manual) PT INR Heparin Anti-Xa Level POC ABG pO2 ABG pH ABG Hemoglobin ABG Oxyhemoglobin ABG pO2 ABG HCO3 ABG O2 Saturation ABG Base Excess ABG Potassium ABG Chloride ABG Glucose Oxyhemoglobin Sodium 155 H Potassium Chloride 122.8 H Carbon Dioxide 21 L BUN 19 H Creatinine Glucose POC Glucose 120 H Lactic Acid Calcium AST Phosphorus Total Protein Albumin C-Reactive Protein Arterial Blood Glucose Arterial Blood Ionized Calcium Urine WBC (Auto) Crossmatch 01/10/20 01/10/20 01/10/20 11:47 11:57 17:09 WBC RBC Hgb Hct MCHC RDW Plt Count MCH Lymph % (Auto) Lymph # Lymph # (Auto) Seg Neutrophils % Seg Neuts % (Manual) Lymphocytes % (Manual) Seg Neutrophils # Seg Neutrophils # Man Nucleated RBC % Lymphocytes # (Manual) Monocytes # (Manual) PT INR Heparin Anti-Xa Level POC ABG pO2 ABG pH ABG Hemoglobin ABG Oxyhemoglobin ABG pO2 ABG HCO3 ABG O2 Saturation ABG Base Excess ABG Potassium ABG Chloride ABG Glucose Oxyhemoglobin Sodium 153 H Potassium Chloride 118.3 H Carbon Dioxide 20 L BUN 19 H Creatinine Glucose 113 H POC Glucose 142 H 125 H Lactic Acid Calcium AST Phosphorus Total Protein Albumin C-Reactive Protein Arterial Blood Glucose Arterial Blood Ionized Calcium Urine WBC (Auto) Crossmatch 01/10/20 01/10/20 01/11/20 20:27 22:00 00:45 WBC RBC Hgb Hct MCHC RDW Plt Count MCH Lymph % (Auto) Lymph # Lymph # (Auto) Seg Neutrophils % Seg Neuts % (Manual) Lymphocytes % (Manual) Seg Neutrophils # Seg Neutrophils # Man Nucleated RBC % Lymphocytes # (Manual) Monocytes # (Manual) PT INR Heparin Anti-Xa Level POC ABG pO2 ABG pH ABG Hemoglobin ABG Oxyhemoglobin ABG pO2 ABG HCO3 ABG O2 Saturation ABG Base Excess ABG Potassium ABG Chloride ABG Glucose Oxyhemoglobin Sodium 153 H 154 H Potassium 3.3 L 3.2 L Chloride 117.0 H 118.9 H Carbon Dioxide 20 L BUN Creatinine Glucose POC Glucose 136 H Lactic Acid Calcium 8.3 L 8.0 L AST Phosphorus Total Protein Albumin C-Reactive Protein Arterial Blood Glucose Arterial Blood Ionized Calcium Urine WBC (Auto) Crossmatch 01/11/20 01/11/20 01/11/20 07:06 08:03 11:54 WBC RBC Hgb Hct MCHC RDW Plt Count MCH Lymph % (Auto) Lymph # Lymph # (Auto) Seg Neutrophils % Seg Neuts % (Manual) Lymphocytes % (Manual) Seg Neutrophils # Seg Neutrophils # Man Nucleated RBC % Lymphocytes # (Manual) Monocytes # (Manual) PT INR Heparin Anti-Xa Level POC ABG pO2 ABG pH ABG Hemoglobin ABG Oxyhemoglobin ABG pO2 ABG HCO3 ABG O2 Saturation ABG Base Excess ABG Potassium ABG Chloride ABG Glucose Oxyhemoglobin Sodium 151 H Potassium Chloride 118.7 H Carbon Dioxide 21 L BUN Creatinine Glucose 107 H POC Glucose 118 H 164 H Lactic Acid Calcium 8.3 L AST Phosphorus Total Protein Albumin C-Reactive Protein Arterial Blood Glucose Arterial Blood Ionized Calcium Urine WBC (Auto) Crossmatch 01/11/20 01/12/20 01/12/20 16:28 00:19 05:40 WBC RBC Hgb Hct MCHC RDW Plt Count MCH Lymph % (Auto) Lymph # Lymph # (Auto) Seg Neutrophils % Seg Neuts % (Manual) Lymphocytes % (Manual) Seg Neutrophils # Seg Neutrophils # Man Nucleated RBC % Lymphocytes # (Manual) Monocytes # (Manual) PT INR Heparin Anti-Xa Level POC ABG pO2 ABG pH ABG Hemoglobin ABG Oxyhemoglobin ABG pO2 ABG HCO3 ABG O2 Saturation ABG Base Excess ABG Potassium ABG Chloride ABG Glucose Oxyhemoglobin Sodium 148 H Potassium Chloride 111.6 H Carbon Dioxide 19 L BUN Creatinine Glucose 128 H POC Glucose 132 H 179 H Lactic Acid Calcium 8.2 L AST Phosphorus Total Protein Albumin C-Reactive Protein Arterial Blood Glucose Arterial Blood Ionized Calcium Urine WBC (Auto) Crossmatch 01/12/20 01/12/20 01/12/20 06:17 11:37 17:21 WBC RBC Hgb Hct MCHC RDW Plt Count MCH Lymph % (Auto) Lymph # Lymph # (Auto) Seg Neutrophils % Seg Neuts % (Manual) Lymphocytes % (Manual) Seg Neutrophils # Seg Neutrophils # Man Nucleated RBC % Lymphocytes # (Manual) Monocytes # (Manual) PT INR Heparin Anti-Xa Level POC ABG pO2 ABG pH ABG Hemoglobin ABG Oxyhemoglobin ABG pO2 ABG HCO3 ABG O2 Saturation ABG Base Excess ABG Potassium ABG Chloride ABG Glucose Oxyhemoglobin Sodium Potassium Chloride Carbon Dioxide BUN Creatinine Glucose POC Glucose 140 H 142 H 133 H Lactic Acid Calcium AST Phosphorus Total Protein Albumin C-Reactive Protein Arterial Blood Glucose Arterial Blood Ionized Calcium Urine WBC (Auto) Crossmatch 01/12/20 01/13/20 01/13/20 23:14 05:26 07:00 WBC RBC Hgb Hct MCHC RDW Plt Count MCH Lymph % (Auto) Lymph # Lymph # (Auto) Seg Neutrophils % Seg Neuts % (Manual) Lymphocytes % (Manual) Seg Neutrophils # Seg Neutrophils # Man Nucleated RBC % Lymphocytes # (Manual) Monocytes # (Manual) PT INR Heparin Anti-Xa Level POC ABG pO2 ABG pH ABG Hemoglobin ABG Oxyhemoglobin ABG pO2 ABG HCO3 ABG O2 Saturation ABG Base Excess ABG Potassium ABG Chloride ABG Glucose Oxyhemoglobin Sodium Potassium Chloride 110.0 H Carbon Dioxide BUN Creatinine Glucose 139 H POC Glucose 135 H 162 H Lactic Acid Calcium 7.8 L AST Phosphorus Total Protein Albumin C-Reactive Protein Arterial Blood Glucose Arterial Blood Ionized Calcium Urine WBC (Auto) Crossmatch 01/13/20 01/13/20 01/13/20 12:14 17:52 21:40 WBC RBC Hgb Hct MCHC RDW Plt Count MCH Lymph % (Auto) Lymph # Lymph # (Auto) Seg Neutrophils % Seg Neuts % (Manual) Lymphocytes % (Manual) Seg Neutrophils # Seg Neutrophils # Man Nucleated RBC % Lymphocytes # (Manual) Monocytes # (Manual) PT INR Heparin Anti-Xa Level POC ABG pO2 ABG pH ABG Hemoglobin ABG Oxyhemoglobin ABG pO2 ABG HCO3 ABG O2 Saturation ABG Base Excess ABG Potassium ABG Chloride ABG Glucose Oxyhemoglobin Sodium Potassium Chloride Carbon Dioxide BUN Creatinine Glucose POC Glucose 205 H 172 H 186 H Lactic Acid Calcium AST Phosphorus Total Protein Albumin C-Reactive Protein Arterial Blood Glucose Arterial Blood Ionized Calcium Urine WBC (Auto) Crossmatch 01/14/20 01/14/2020 04:28 11:01 11:01 WBC 14.8 H RBC 3.20 L Hgb 9.5 L Hct 28.0 L MCHC RDW Plt Count MCH Lymph % (Auto) Lymph # Lymph # (Auto) Seg Neutrophils % Seg Neuts % (Manual) Lymphocytes % (Manual) Seg Neutrophils # Seg Neutrophils # Man Nucleated RBC % Lymphocytes # (Manual) Monocytes # (Manual) PT INR Heparin Anti-Xa Level POC ABG pO2 ABG pH ABG Hemoglobin ABG Oxyhemoglobin ABG pO2 ABG HCO3 ABG O2 Saturation ABG Base Excess ABG Potassium ABG Chloride ABG Glucose Oxyhemoglobin Sodium Potassium 3.2 L Chloride Carbon Dioxide BUN Creatinine 0.4 L Glucose POC Glucose 115 H Lactic Acid Calcium 8.0 L AST Phosphorus Total Protein Albumin C-Reactive Protein Arterial Blood Glucose Arterial Blood Ionized Calcium Urine WBC (Auto) Crossmatch 01/14/20 01/14/20 01/14/20 11:01 16:33 22:32 WBC RBC Hgb Hct MCHC RDW Plt Count MCH Lymph % (Auto) Lymph # Lymph # (Auto) Seg Neutrophils % Seg Neuts % (Manual) Lymphocytes % (Manual) Seg Neutrophils # Seg Neutrophils # Man Nucleated RBC % Lymphocytes # (Manual) Monocytes # (Manual) PT 15.8 H INR 1.23 H Heparin Anti-Xa Level POC ABG pO2 ABG pH ABG Hemoglobin ABG Oxyhemoglobin ABG pO2 ABG HCO3 ABG O2 Saturation ABG Base Excess ABG Potassium ABG Chloride ABG Glucose Oxyhemoglobin Sodium Potassium Chloride Carbon Dioxide BUN Creatinine Glucose POC Glucose 58 L 188 H Lactic Acid Calcium AST Phosphorus Total Protein Albumin C-Reactive Protein Arterial Blood Glucose Arterial Blood Ionized Calcium Urine WBC (Auto) Crossmatch 01/15/20 01/15/20 01/15/20 05:35 06:19 17:17 WBC RBC Hgb Hct MCHC RDW Plt Count MCH Lymph % (Auto) Lymph # Lymph # (Auto) Seg Neutrophils % Seg Neuts % (Manual) Lymphocytes % (Manual) Seg Neutrophils # Seg Neutrophils # Man Nucleated RBC % Lymphocytes # (Manual) Monocytes # (Manual) PT INR Heparin Anti-Xa Level POC ABG pO2 ABG pH ABG Hemoglobin ABG Oxyhemoglobin ABG pO2 ABG HCO3 ABG O2 Saturation ABG Base Excess ABG Potassium ABG Chloride ABG Glucose Oxyhemoglobin Sodium Potassium Chloride Carbon Dioxide BUN Creatinine 0.5 L Glucose 104 H POC Glucose 106 H 183 H Lactic Acid Calcium 7.8 L AST Phosphorus Total Protein Albumin C-Reactive Protein Arterial Blood Glucose Arterial Blood Ionized Calcium Urine WBC (Auto) Crossmatch 01/15/20 01/16/20 01/16/20 22:29 05:35 05:59 WBC 14.7 H RBC 3.04 L Hgb 9.0 L Hct 27.0 L MCHC RDW Plt Count MCH Lymph % (Auto) 9.1 L Lymph # Lymph # (Auto) Seg Neutrophils % 87.3 H Seg Neuts % (Manual) Lymphocytes % (Manual) Seg Neutrophils # 12.9 H Seg Neutrophils # Man Nucleated RBC % Lymphocytes # (Manual) Monocytes # (Manual) PT INR Heparin Anti-Xa Level POC ABG pO2 ABG pH ABG Hemoglobin ABG Oxyhemoglobin ABG pO2 ABG HCO3 ABG O2 Saturation ABG Base Excess ABG Potassium ABG Chloride ABG Glucose Oxyhemoglobin Sodium Potassium Chloride Carbon Dioxide BUN Creatinine Glucose POC Glucose 228 H 130 H Lactic Acid Calcium AST Phosphorus Total Protein Albumin C-Reactive Protein Arterial Blood Glucose Arterial Blood Ionized Calcium Urine WBC (Auto) Crossmatch 01/16/20 01/16/20 01/16/20 09:52 12:49 17:30 WBC RBC Hgb Hct MCHC RDW Plt Count MCH Lymph % (Auto) Lymph # Lymph # (Auto) Seg Neutrophils % Seg Neuts % (Manual) Lymphocytes % (Manual) Seg Neutrophils # Seg Neutrophils # Man Nucleated RBC % Lymphocytes # (Manual) Monocytes # (Manual) PT INR Heparin Anti-Xa Level POC ABG pO2 ABG pH ABG Hemoglobin ABG Oxyhemoglobin ABG pO2 ABG HCO3 ABG O2 Saturation ABG Base Excess ABG Potassium ABG Chloride ABG Glucose Oxyhemoglobin Sodium Potassium Chloride Carbon Dioxide BUN Creatinine Glucose POC Glucose 122 H 142 H 192 H Lactic Acid Calcium AST Phosphorus Total Protein Albumin C-Reactive Protein Arterial Blood Glucose Arterial Blood Ionized Calcium Urine WBC (Auto) Crossmatch 01/16/20 01/17/20 01/17/20 23:01 08:36 08:36 WBC 12.7 H RBC 2.98 L Hgb 8.9 L Hct 26.4 L MCHC RDW Plt Count MCH Lymph % (Auto) 8.8 L Lymph # 1.1 L Lymph # (Auto) Seg Neutrophils % 86.7 H Seg Neuts % (Manual) Lymphocytes % (Manual) Seg Neutrophils # 11.0 H Seg Neutrophils # Man Nucleated RBC % Lymphocytes # (Manual) Monocytes # (Manual) PT INR Heparin Anti-Xa Level POC ABG pO2 ABG pH ABG Hemoglobin ABG Oxyhemoglobin ABG pO2 ABG HCO3 ABG O2 Saturation ABG Base Excess ABG Potassium ABG Chloride ABG Glucose Oxyhemoglobin Sodium Potassium 3.3 L D Chloride Carbon Dioxide BUN Creatinine 0.4 L Glucose POC Glucose 141 H Lactic Acid Calcium 8.1 L AST Phosphorus Total Protein 4.6 L Albumin 1.6 L C-Reactive Protein Arterial Blood Glucose Arterial Blood Ionized Calcium Urine WBC (Auto) Crossmatch 01/17/20 01/17/20 01/18/20 11:43 23:56 06:27 WBC RBC Hgb Hct MCHC RDW Plt Count MCH Lymph % (Auto) Lymph # Lymph # (Auto) Seg Neutrophils % Seg Neuts % (Manual) Lymphocytes % (Manual) Seg Neutrophils # Seg Neutrophils # Man Nucleated RBC % Lymphocytes # (Manual) Monocytes # (Manual) PT INR Heparin Anti-Xa Level POC ABG pO2 ABG pH ABG Hemoglobin ABG Oxyhemoglobin ABG pO2 ABG HCO3 ABG O2 Saturation ABG Base Excess ABG Potassium ABG Chloride ABG Glucose Oxyhemoglobin Sodium Potassium Chloride Carbon Dioxide BUN Creatinine Glucose POC Glucose 137 H 215 H 122 H Lactic Acid Calcium AST Phosphorus Total Protein Albumin C-Reactive Protein Arterial Blood Glucose Arterial Blood Ionized Calcium Urine WBC (Auto) Crossmatch 01/18/20 01/18/20 01/18/20 07:31 07:31 11:39 WBC 12.1 H RBC 3.23 L Hgb 9.7 L Hct 28.7 L MCHC RDW Plt Count MCH Lymph % (Auto) 9.2 L Lymph # 1.1 L Lymph # (Auto) Seg Neutrophils % 85.0 H Seg Neuts % (Manual) Lymphocytes % (Manual) Seg Neutrophils # 10.3 H Seg Neutrophils # Man Nucleated RBC % Lymphocytes # (Manual) Monocytes # (Manual) PT INR Heparin Anti-Xa Level POC ABG pO2 ABG pH ABG Hemoglobin ABG Oxyhemoglobin ABG pO2 ABG HCO3 ABG O2 Saturation ABG Base Excess ABG Potassium ABG Chloride ABG Glucose Oxyhemoglobin Sodium Potassium Chloride Carbon Dioxide BUN Creatinine 0.4 L Glucose 108 H POC Glucose 172 H Lactic Acid Calcium AST Phosphorus Total Protein 5.3 L Albumin 2.1 L C-Reactive Protein Arterial Blood Glucose Arterial Blood Ionized Calcium Urine WBC (Auto) Crossmatch 01/18/20 01/19/20 01/19/20 18:22 00:15 11:30 WBC RBC Hgb Hct MCHC RDW Plt Count MCH Lymph % (Auto) Lymph # Lymph # (Auto) Seg Neutrophils % Seg Neuts % (Manual) Lymphocytes % (Manual) Seg Neutrophils # Seg Neutrophils # Man Nucleated RBC % Lymphocytes # (Manual) Monocytes # (Manual) PT INR Heparin Anti-Xa Level POC ABG pO2 ABG pH ABG Hemoglobin ABG Oxyhemoglobin ABG pO2 ABG HCO3 ABG O2 Saturation ABG Base Excess ABG Potassium ABG Chloride ABG Glucose Oxyhemoglobin Sodium Potassium Chloride Carbon Dioxide BUN Creatinine Glucose POC Glucose 119 H 135 H 163 H Lactic Acid Calcium AST Phosphorus Total Protein Albumin C-Reactive Protein Arterial Blood Glucose Arterial Blood Ionized Calcium Urine WBC (Auto) Crossmatch 01/19/20 01/19/20 01/20/20 17:44 22:59 03:44 WBC 11.1 H RBC 2.77 L Hgb 8.4 L Hct 25.0 L MCHC RDW Plt Count MCH Lymph % (Auto) Lymph # Lymph # (Auto) Seg Neutrophils % 74.6 H Seg Neuts % (Manual) Lymphocytes % (Manual) Seg Neutrophils # 8.3 H Seg Neutrophils # Man Nucleated RBC % Lymphocytes # (Manual) Monocytes # (Manual) PT INR Heparin Anti-Xa Level POC ABG pO2 ABG pH ABG Hemoglobin ABG Oxyhemoglobin ABG pO2 ABG HCO3 ABG O2 Saturation ABG Base Excess ABG Potassium ABG Chloride ABG Glucose Oxyhemoglobin Sodium Potassium Chloride Carbon Dioxide BUN Creatinine Glucose POC Glucose 161 H 182 H Lactic Acid Calcium AST Phosphorus Total Protein Albumin C-Reactive Protein Arterial Blood Glucose Arterial Blood Ionized Calcium Urine WBC (Auto) Crossmatch 01/20/20 01/21/20 01/21/20 03:44 00:07 05:51 WBC RBC 2.84 L Hgb 8.6 L Hct 25.5 L MCHC RDW Plt Count 463 H MCH Lymph % (Auto) Lymph # Lymph # (Auto) Seg Neutrophils % 76.9 H Seg Neuts % (Manual) Lymphocytes % (Manual) Seg Neutrophils # 7.8 H Seg Neutrophils # Man Nucleated RBC % Lymphocytes # (Manual) Monocytes # (Manual) PT INR Heparin Anti-Xa Level POC ABG pO2 ABG pH ABG Hemoglobin ABG Oxyhemoglobin ABG pO2 ABG HCO3 ABG O2 Saturation ABG Base Excess ABG Potassium ABG Chloride ABG Glucose Oxyhemoglobin Sodium Potassium Chloride Carbon Dioxide BUN Creatinine 0.4 L Glucose POC Glucose 68 L Lactic Acid Calcium 7.9 L AST Phosphorus Total Protein 4.7 L Albumin 1.9 L C-Reactive Protein Arterial Blood Glucose Arterial Blood Ionized Calcium Urine WBC (Auto) Crossmatch 01/21/20 01/21/20 01/21/20 05:51 05:58 11:25 WBC RBC Hgb Hct MCHC RDW Plt Count MCH Lymph % (Auto) Lymph # Lymph # (Auto) Seg Neutrophils % Seg Neuts % (Manual) Lymphocytes % (Manual) Seg Neutrophils # Seg Neutrophils # Man Nucleated RBC % Lymphocytes # (Manual) Monocytes # (Manual) PT INR Heparin Anti-Xa Level POC ABG pO2 ABG pH ABG Hemoglobin ABG Oxyhemoglobin ABG pO2 ABG HCO3 ABG O2 Saturation ABG Base Excess ABG Potassium ABG Chloride ABG Glucose Oxyhemoglobin Sodium Potassium Chloride Carbon Dioxide 20 L BUN Creatinine 0.5 L Glucose 130 H POC Glucose 185 H 163 H Lactic Acid Calcium 7.6 L AST Phosphorus Total Protein 5.0 L Albumin 1.9 L C-Reactive Protein Arterial Blood Glucose Arterial Blood Ionized Calcium Urine WBC (Auto) Crossmatch 01/21/20 01/21/20 01/22/20 16:22 21:17 01:28 WBC RBC 2.60 L Hgb 8.0 L Hct 23.3 L MCHC RDW Plt Count MCH Lymph % (Auto) Lymph # Lymph # (Auto) Seg Neutrophils % 74.8 H Seg Neuts % (Manual) Lymphocytes % (Manual) Seg Neutrophils # Seg Neutrophils # Man Nucleated RBC % Lymphocytes # (Manual) Monocytes # (Manual) PT INR Heparin Anti-Xa Level POC ABG pO2 ABG pH ABG Hemoglobin ABG Oxyhemoglobin ABG pO2 ABG HCO3 ABG O2 Saturation ABG Base Excess ABG Potassium ABG Chloride ABG Glucose Oxyhemoglobin Sodium Potassium Chloride Carbon Dioxide BUN Creatinine Glucose POC Glucose 177 H 67 L Lactic Acid Calcium AST Phosphorus Total Protein Albumin C-Reactive Protein Arterial Blood Glucose Arterial Blood Ionized Calcium Urine WBC (Auto) Crossmatch 01/22/20 01/22/20 01/22/20 01:28 01:28 12:06 WBC RBC Hgb Hct MCHC RDW Plt Count MCH Lymph % (Auto) Lymph # Lymph # (Auto) Seg Neutrophils % Seg Neuts % (Manual) Lymphocytes % (Manual) Seg Neutrophils # Seg Neutrophils # Man Nucleated RBC % Lymphocytes # (Manual) Monocytes # (Manual) PT INR Heparin Anti-Xa Level POC ABG pO2 ABG pH ABG Hemoglobin ABG Oxyhemoglobin ABG pO2 ABG HCO3 ABG O2 Saturation ABG Base Excess ABG Potassium ABG Chloride ABG Glucose Oxyhemoglobin Sodium Potassium Chloride 107.6 H Carbon Dioxide BUN Creatinine 0.4 L Glucose 152 H POC Glucose 203 H 140 H Lactic Acid Calcium 7.5 L AST Phosphorus Total Protein 4.0 L Albumin 2.0 L C-Reactive Protein Arterial Blood Glucose Arterial Blood Ionized Calcium Urine WBC (Auto) Crossmatch 01/22/20 01/22/20 01/23/20 16:24 22:55 06:10 WBC RBC 2.68 L Hgb 8.6 L Hct 24.1 L MCHC 36 H RDW Plt Count MCH Lymph % (Auto) Lymph # Lymph # (Auto) Seg Neutrophils % Seg Neuts % (Manual) 71.0 H Lymphocytes % (Manual) Seg Neutrophils # Seg Neutrophils # Man Nucleated RBC % Lymphocytes # (Manual) Monocytes # (Manual) PT INR Heparin Anti-Xa Level POC ABG pO2 ABG pH ABG Hemoglobin ABG Oxyhemoglobin ABG pO2 ABG HCO3 ABG O2 Saturation ABG Base Excess ABG Potassium ABG Chloride ABG Glucose Oxyhemoglobin Sodium Potassium Chloride Carbon Dioxide BUN Creatinine Glucose POC Glucose 205 H 196 H Lactic Acid Calcium AST Phosphorus Total Protein Albumin C-Reactive Protein Arterial Blood Glucose Arterial Blood Ionized Calcium Urine WBC (Auto) Crossmatch 01/23/20 01/23/20 01/23/20 06:10 07:35 11:59 WBC RBC Hgb Hct MCHC RDW Plt Count MCH Lymph % (Auto) Lymph # Lymph # (Auto) Seg Neutrophils % Seg Neuts % (Manual) Lymphocytes % (Manual) Seg Neutrophils # Seg Neutrophils # Man Nucleated RBC % Lymphocytes # (Manual) Monocytes # (Manual) PT INR Heparin Anti-Xa Level POC ABG pO2 ABG pH ABG Hemoglobin ABG Oxyhemoglobin ABG pO2 ABG HCO3 ABG O2 Saturation ABG Base Excess ABG Potassium ABG Chloride ABG Glucose Oxyhemoglobin Sodium Potassium Chloride 108.8 H Carbon Dioxide BUN Creatinine 0.4 L Glucose 105 H POC Glucose 111 H 123 H Lactic Acid Calcium 8.0 L AST Phosphorus Total Protein 4.9 L D Albumin 2.0 L C-Reactive Protein Arterial Blood Glucose Arterial Blood Ionized Calcium Urine WBC (Auto) Crossmatch 01/23/20 01/24/20 01/24/20 22:45 11:24 16:41 WBC RBC Hgb Hct MCHC RDW Plt Count MCH Lymph % (Auto) Lymph # Lymph # (Auto) Seg Neutrophils % Seg Neuts % (Manual) Lymphocytes % (Manual) Seg Neutrophils # Seg Neutrophils # Man Nucleated RBC % Lymphocytes # (Manual) Monocytes # (Manual) PT INR Heparin Anti-Xa Level POC ABG pO2 ABG pH ABG Hemoglobin ABG Oxyhemoglobin ABG pO2 ABG HCO3 ABG O2 Saturation ABG Base Excess ABG Potassium ABG Chloride ABG Glucose Oxyhemoglobin Sodium Potassium Chloride Carbon Dioxide BUN Creatinine Glucose POC Glucose 180 H 182 H 177 H Lactic Acid Calcium AST Phosphorus Total Protein Albumin C-Reactive Protein Arterial Blood Glucose Arterial Blood Ionized Calcium Urine WBC (Auto) Crossmatch 01/24/20 01/25/20 01/25/20 23:11 07:12 11:35 WBC RBC Hgb Hct MCHC RDW Plt Count MCH Lymph % (Auto) Lymph # Lymph # (Auto) Seg Neutrophils % Seg Neuts % (Manual) Lymphocytes % (Manual) Seg Neutrophils # Seg Neutrophils # Man Nucleated RBC % Lymphocytes # (Manual) Monocytes # (Manual) PT INR Heparin Anti-Xa Level POC ABG pO2 ABG pH ABG Hemoglobin ABG Oxyhemoglobin ABG pO2 ABG HCO3 ABG O2 Saturation ABG Base Excess ABG Potassium ABG Chloride ABG Glucose Oxyhemoglobin Sodium Potassium Chloride Carbon Dioxide BUN Creatinine Glucose POC Glucose 142 H 135 H 142 H Lactic Acid Calcium AST Phosphorus Total Protein Albumin C-Reactive Protein Arterial Blood Glucose Arterial Blood Ionized Calcium Urine WBC (Auto) Crossmatch 01/25/20 01/26/20 01/26/20 16:33 00:04 11:35 WBC RBC Hgb Hct MCHC RDW Plt Count MCH Lymph % (Auto) Lymph # Lymph # (Auto) Seg Neutrophils % Seg Neuts % (Manual) Lymphocytes % (Manual) Seg Neutrophils # Seg Neutrophils # Man Nucleated RBC % Lymphocytes # (Manual) Monocytes # (Manual) PT INR Heparin Anti-Xa Level POC ABG pO2 ABG pH ABG Hemoglobin ABG Oxyhemoglobin ABG pO2 ABG HCO3 ABG O2 Saturation ABG Base Excess ABG Potassium ABG Chloride ABG Glucose Oxyhemoglobin Sodium Potassium Chloride Carbon Dioxide BUN Creatinine Glucose POC Glucose 247 H 233 H 200 H Lactic Acid Calcium AST Phosphorus Total Protein Albumin C-Reactive Protein Arterial Blood Glucose Arterial Blood Ionized Calcium Urine WBC (Auto) Crossmatch 01/26/20 01/26/20 01/26/20 16:30 16:30 17:19 WBC RBC Hgb 7.4 L Hct 22.0 L MCHC RDW Plt Count MCH Lymph % (Auto) Lymph # Lymph # (Auto) Seg Neutrophils % Seg Neuts % (Manual) Lymphocytes % (Manual) Seg Neutrophils # Seg Neutrophils # Man Nucleated RBC % Lymphocytes # (Manual) Monocytes # (Manual) PT 18.4 H INR 1.50 H Heparin Anti-Xa Level POC ABG pO2 ABG pH ABG Hemoglobin ABG Oxyhemoglobin ABG pO2 ABG HCO3 ABG O2 Saturation ABG Base Excess ABG Potassium ABG Chloride ABG Glucose Oxyhemoglobin Sodium Potassium Chloride Carbon Dioxide BUN Creatinine Glucose POC Glucose 67 L Lactic Acid Calcium AST Phosphorus Total Protein Albumin C-Reactive Protein Arterial Blood Glucose Arterial Blood Ionized Calcium Urine WBC (Auto) Crossmatch 01/26/20 01/26/20 01/27/20 20:24 21:32 00:16 WBC RBC Hgb Hct MCHC RDW Plt Count MCH Lymph % (Auto) Lymph # Lymph # (Auto) Seg Neutrophils % Seg Neuts % (Manual) Lymphocytes % (Manual) Seg Neutrophils # Seg Neutrophils # Man Nucleated RBC % Lymphocytes # (Manual) Monocytes # (Manual) PT INR Heparin Anti-Xa Level POC ABG pO2 51.8 L ABG pH ABG Hemoglobin 8.5 L ABG Oxyhemoglobin 84.7 L ABG pO2 ABG HCO3 ABG O2 Saturation ABG Base Excess ABG Potassium ABG Chloride ABG Glucose Oxyhemoglobin Sodium Potassium Chloride Carbon Dioxide BUN Creatinine Glucose POC Glucose 162 H 141 H Lactic Acid Calcium AST Phosphorus Total Protein Albumin C-Reactive Protein Arterial Blood Glucose Arterial Blood Ionized Calcium Urine WBC (Auto) Crossmatch 01/27/20 01/27/20 01/27/20 01:42 02:18 05:57 WBC RBC Hgb Hct MCHC RDW Plt Count MCH Lymph % (Auto) Lymph # Lymph # (Auto) Seg Neutrophils % Seg Neuts % (Manual) Lymphocytes % (Manual) Seg Neutrophils # Seg Neutrophils # Man Nucleated RBC % Lymphocytes # (Manual) Monocytes # (Manual) PT INR Heparin Anti-Xa Level 2.00 H POC ABG pO2 ABG pH ABG Hemoglobin ABG Oxyhemoglobin ABG pO2 ABG HCO3 ABG O2 Saturation ABG Base Excess ABG Potassium ABG Chloride ABG Glucose Oxyhemoglobin Sodium Potassium Chloride Carbon Dioxide BUN Creatinine Glucose POC Glucose 183 H 124 H Lactic Acid Calcium AST Phosphorus Total Protein Albumin C-Reactive Protein Arterial Blood Glucose Arterial Blood Ionized Calcium Urine WBC (Auto) Crossmatch 01/27/20 01/27/20 01/27/20 06:30 06:30 12:23 WBC RBC 2.75 L Hgb 8.4 L Hct 24.9 L MCHC RDW 16.0 H Plt Count 474 H MCH Lymph % (Auto) 12.7 L Lymph # Lymph # (Auto) Seg Neutrophils % 83.2 H Seg Neuts % (Manual) Lymphocytes % (Manual) Seg Neutrophils # 8.4 H Seg Neutrophils # Man Nucleated RBC % Lymphocytes # (Manual) Monocytes # (Manual) PT INR Heparin Anti-Xa Level POC ABG pO2 ABG pH ABG Hemoglobin ABG Oxyhemoglobin ABG pO2 ABG HCO3 ABG O2 Saturation ABG Base Excess ABG Potassium ABG Chloride ABG Glucose Oxyhemoglobin Sodium Potassium 3.5 L Chloride 110.2 H Carbon Dioxide BUN Creatinine 0.4 L Glucose 101 H POC Glucose 126 H Lactic Acid Calcium 7.8 L AST Phosphorus Total Protein Albumin C-Reactive Protein Arterial Blood Glucose Arterial Blood Ionized Calcium Urine WBC (Auto) Crossmatch 01/27/20 01/27/20 01/28/20 17:31 23:40 00:00 WBC RBC Hgb Hct MCHC RDW Plt Count MCH Lymph % (Auto) Lymph # Lymph # (Auto) Seg Neutrophils % Seg Neuts % (Manual) Lymphocytes % (Manual) Seg Neutrophils # Seg Neutrophils # Man Nucleated RBC % Lymphocytes # (Manual) Monocytes # (Manual) PT INR Heparin Anti-Xa Level 2.00 H POC ABG pO2 ABG pH ABG Hemoglobin ABG Oxyhemoglobin ABG pO2 ABG HCO3 ABG O2 Saturation ABG Base Excess ABG Potassium ABG Chloride ABG Glucose Oxyhemoglobin Sodium Potassium Chloride Carbon Dioxide BUN Creatinine Glucose POC Glucose 133 H 136 H Lactic Acid Calcium AST Phosphorus Total Protein Albumin C-Reactive Protein Arterial Blood Glucose Arterial Blood Ionized Calcium Urine WBC (Auto) Crossmatch 01/28/20 01/28/20 01/28/20 04:26 04:26 05:35 WBC RBC Hgb 9.6 L Hct 28.5 L MCHC RDW Plt Count 508 H MCH Lymph % (Auto) Lymph # Lymph # (Auto) Seg Neutrophils % Seg Neuts % (Manual) Lymphocytes % (Manual) Seg Neutrophils # Seg Neutrophils # Man Nucleated RBC % Lymphocytes # (Manual) Monocytes # (Manual) PT INR Heparin Anti-Xa Level POC ABG pO2 ABG pH ABG Hemoglobin ABG Oxyhemoglobin ABG pO2 ABG HCO3 ABG O2 Saturation ABG Base Excess ABG Potassium ABG Chloride ABG Glucose Oxyhemoglobin Sodium Potassium Chloride Carbon Dioxide 19 L BUN 20 H Creatinine 0.5 L Glucose 103 H POC Glucose 135 H Lactic Acid Calcium 7.9 L AST Phosphorus Total Protein Albumin C-Reactive Protein Arterial Blood Glucose Arterial Blood Ionized Calcium Urine WBC (Auto) Crossmatch 01/28/20 01/28/20 01/28/20 08:50 11:10 11:51 WBC RBC Hgb Hct MCHC RDW Plt Count MCH Lymph % (Auto) Lymph # Lymph # (Auto) Seg Neutrophils % Seg Neuts % (Manual) Lymphocytes % (Manual) Seg Neutrophils # Seg Neutrophils # Man Nucleated RBC % Lymphocytes # (Manual) Monocytes # (Manual) PT INR Heparin Anti-Xa Level 0.74 H POC ABG pO2 67.2 L ABG pH ABG Hemoglobin 9.3 L ABG Oxyhemoglobin ABG pO2 ABG HCO3 ABG O2 Saturation ABG Base Excess ABG Potassium ABG Chloride ABG Glucose Oxyhemoglobin Sodium Potassium Chloride Carbon Dioxide BUN Creatinine Glucose POC Glucose 160 H Lactic Acid Calcium AST Phosphorus Total Protein Albumin C-Reactive Protein Arterial Blood Glucose Arterial Blood Ionized Calcium Urine WBC (Auto) Crossmatch 01/28/20 01/28/20 01/29/20 17:19 23:53 03:52 WBC RBC Hgb Hct MCHC RDW Plt Count MCH Lymph % (Auto) Lymph # Lymph # (Auto) Seg Neutrophils % Seg Neuts % (Manual) Lymphocytes % (Manual) Seg Neutrophils # Seg Neutrophils # Man Nucleated RBC % Lymphocytes # (Manual) Monocytes # (Manual) PT INR Heparin Anti-Xa Level POC ABG pO2 ABG pH 7.510 H ABG Hemoglobin 7.3 L ABG Oxyhemoglobin ABG pO2 357.0 H ABG HCO3 19.6 L ABG O2 Saturation 99.6 H ABG Base Excess -2.9 L ABG Potassium ABG Chloride ABG Glucose Oxyhemoglobin Sodium Potassium Chloride Carbon Dioxide BUN Creatinine Glucose POC Glucose 177 H 142 H Lactic Acid Calcium AST Phosphorus Total Protein Albumin C-Reactive Protein Arterial Blood Glucose Arterial Blood Ionized Calcium Urine WBC (Auto) Crossmatch 01/29/20 01/29/20 01/29/20 04:58 04:58 06:01 WBC 13.1 H RBC 2.75 L Hgb 8.6 L Hct 25.6 L MCHC RDW 17.7 H Plt Count MCH Lymph % (Auto) Lymph # Lymph # (Auto) Seg Neutrophils % Seg Neuts % (Manual) 91.0 H Lymphocytes % (Manual) 6.0 L Seg Neutrophils # Seg Neutrophils # Man 11.9 H Nucleated RBC % 1.0 H Lymphocytes # (Manual) 0.8 L Monocytes # (Manual) PT INR Heparin Anti-Xa Level POC ABG pO2 ABG pH ABG Hemoglobin ABG Oxyhemoglobin ABG pO2 ABG HCO3 ABG O2 Saturation ABG Base Excess ABG Potassium ABG Chloride ABG Glucose Oxyhemoglobin Sodium 148 H Potassium 3.5 L D Chloride 113.2 H Carbon Dioxide 21 L BUN 20 H Creatinine Glucose 137 H POC Glucose 167 H Lactic Acid Calcium 8.1 L AST Phosphorus Total Protein Albumin C-Reactive Protein Arterial Blood Glucose Arterial Blood Ionized Calcium Urine WBC (Auto) Crossmatch 01/29/20 01/29/20 01/29/20 11:45 17:52 23:49 WBC RBC Hgb Hct MCHC RDW Plt Count MCH Lymph % (Auto) Lymph # Lymph # (Auto) Seg Neutrophils % Seg Neuts % (Manual) Lymphocytes % (Manual) Seg Neutrophils # Seg Neutrophils # Man Nucleated RBC % Lymphocytes # (Manual) Monocytes # (Manual) PT INR Heparin Anti-Xa Level POC ABG pO2 ABG pH ABG Hemoglobin ABG Oxyhemoglobin ABG pO2 ABG HCO3 ABG O2 Saturation ABG Base Excess ABG Potassium ABG Chloride ABG Glucose Oxyhemoglobin Sodium Potassium Chloride Carbon Dioxide BUN Creatinine Glucose POC Glucose 185 H 226 H 141 H Lactic Acid Calcium AST Phosphorus Total Protein Albumin C-Reactive Protein Arterial Blood Glucose Arterial Blood Ionized Calcium Urine WBC (Auto) Crossmatch 01/29/20 01/30/20 01/30/20 Unknown 03:24 04:00 WBC RBC Hgb 7.8 L Hct 23.5 L MCHC RDW Plt Count MCH Lymph % (Auto) Lymph # Lymph # (Auto) Seg Neutrophils % Seg Neuts % (Manual) Lymphocytes % (Manual) Seg Neutrophils # Seg Neutrophils # Man Nucleated RBC % Lymphocytes # (Manual) Monocytes # (Manual) PT INR Heparin Anti-Xa Level POC ABG pO2 ABG pH 7.485 H ABG Hemoglobin 6.7 L ABG Oxyhemoglobin ABG pO2 102.0 H ABG HCO3 ABG O2 Saturation ABG Base Excess ABG Potassium ABG Chloride ABG Glucose Oxyhemoglobin Sodium Potassium Chloride Carbon Dioxide BUN Creatinine Glucose POC Glucose Lactic Acid Calcium AST Phosphorus Total Protein Albumin C-Reactive Protein 14.80 H Arterial Blood Glucose Arterial Blood Ionized Calcium Urine WBC (Auto) Crossmatch 01/30/20 01/30/20 01/30/20 05:50 11:15 17:07 WBC RBC Hgb Hct MCHC RDW Plt Count MCH Lymph % (Auto) Lymph # Lymph # (Auto) Seg Neutrophils % Seg Neuts % (Manual) Lymphocytes % (Manual) Seg Neutrophils # Seg Neutrophils # Man Nucleated RBC % Lymphocytes # (Manual) Monocytes # (Manual) PT INR Heparin Anti-Xa Level POC ABG pO2 ABG pH ABG Hemoglobin ABG Oxyhemoglobin ABG pO2 ABG HCO3 ABG O2 Saturation ABG Base Excess ABG Potassium ABG Chloride ABG Glucose Oxyhemoglobin Sodium Potassium Chloride Carbon Dioxide BUN Creatinine Glucose POC Glucose 122 H 207 H 124 H Lactic Acid Calcium AST Phosphorus Total Protein Albumin C-Reactive Protein Arterial Blood Glucose Arterial Blood Ionized Calcium Urine WBC (Auto) Crossmatch 01/30/20 01/31/20 01/31/20 17:08 00:10 04:52 WBC RBC Hgb Hct MCHC RDW Plt Count MCH Lymph % (Auto) Lymph # Lymph # (Auto) Seg Neutrophils % Seg Neuts % (Manual) Lymphocytes % (Manual) Seg Neutrophils # Seg Neutrophils # Man Nucleated RBC % Lymphocytes # (Manual) Monocytes # (Manual) PT INR Heparin Anti-Xa Level POC ABG pO2 ABG pH 7.504 H 7.486 H ABG Hemoglobin 7.4 L 6.2 L ABG Oxyhemoglobin ABG pO2 169.2 H 121.7 H ABG HCO3 27.1 H ABG O2 Saturation 99.1 H ABG Base Excess 3.4 H ABG Potassium ABG Chloride ABG Glucose Oxyhemoglobin Sodium Potassium Chloride Carbon Dioxide BUN Creatinine Glucose POC Glucose 191 H Lactic Acid Calcium AST Phosphorus Total Protein Albumin C-Reactive Protein Arterial Blood Glucose Arterial Blood Ionized Calcium Urine WBC (Auto) Crossmatch 01/31/20 01/31/20 01/31/20 05:37 11:59 12:40 WBC RBC 2.41 L Hgb 7.5 L Hct 22.3 L MCHC RDW 22.2 H Plt Count MCH Lymph % (Auto) Lymph # Lymph # (Auto) Seg Neutrophils % Seg Neuts % (Manual) 94.0 H Lymphocytes % (Manual) 2.0 L Seg Neutrophils # Seg Neutrophils # Man 9.4 H Nucleated RBC % Lymphocytes # (Manual) 0.2 L Monocytes # (Manual) PT INR Heparin Anti-Xa Level POC ABG pO2 ABG pH ABG Hemoglobin ABG Oxyhemoglobin ABG pO2 ABG HCO3 ABG O2 Saturation ABG Base Excess ABG Potassium ABG Chloride ABG Glucose Oxyhemoglobin Sodium Potassium Chloride Carbon Dioxide BUN Creatinine Glucose POC Glucose 175 H 220 H Lactic Acid Calcium AST Phosphorus Total Protein Albumin C-Reactive Protein Arterial Blood Glucose Arterial Blood Ionized Calcium Urine WBC (Auto) Crossmatch 01/31/20 01/31/20 01/31/20 12:40 14:40 18:18 WBC RBC Hgb Hct MCHC RDW Plt Count MCH Lymph % (Auto) Lymph # Lymph # (Auto) Seg Neutrophils % Seg Neuts % (Manual) Lymphocytes % (Manual) Seg Neutrophils # Seg Neutrophils # Man Nucleated RBC % Lymphocytes # (Manual) Monocytes # (Manual) PT INR Heparin Anti-Xa Level POC ABG pO2 124.7 H ABG pH 7.542 H ABG Hemoglobin 7.8 L ABG Oxyhemoglobin ABG pO2 ABG HCO3 ABG O2 Saturation ABG Base Excess ABG Potassium ABG Chloride ABG Glucose Oxyhemoglobin Sodium 151 H Potassium 2.1 L* D Chloride 108.9 H Carbon Dioxide BUN 22 H Creatinine Glucose 194 H POC Glucose 181 H Lactic Acid Calcium 8.1 L AST Phosphorus Total Protein 4.8 L Albumin 2.3 L C-Reactive Protein Arterial Blood Glucose Arterial Blood Ionized Calcium Urine WBC (Auto) Crossmatch 02/01/20 02/01/20 02/01/20 00:11 03:14 04:32 WBC 11.9 H RBC 2.47 L Hgb 7.6 L Hct 22.8 L MCHC RDW 22.7 H Plt Count MCH Lymph % (Auto) Lymph # Lymph # (Auto) Seg Neutrophils % Seg Neuts % (Manual) 90.0 H Lymphocytes % (Manual) 5.0 L Seg Neutrophils # Seg Neutrophils # Man 10.7 H Nucleated RBC % Lymphocytes # (Manual) 0.6 L Monocytes # (Manual) PT INR Heparin Anti-Xa Level POC ABG pO2 ABG pH 7.564 H ABG Hemoglobin 7.6 L ABG Oxyhemoglobin ABG pO2 124.1 H ABG HCO3 29.6 H ABG O2 Saturation ABG Base Excess 7.0 H ABG Potassium ABG Chloride ABG Glucose Oxyhemoglobin Sodium Potassium Chloride Carbon Dioxide BUN Creatinine Glucose POC Glucose 190 H Lactic Acid Calcium AST Phosphorus Total Protein Albumin C-Reactive Protein Arterial Blood Glucose Arterial Blood Ionized Calcium Urine WBC (Auto) Crossmatch 02/01/20 02/01/20 02/01/20 04:32 05:28 11:56 WBC RBC Hgb Hct MCHC RDW Plt Count MCH Lymph % (Auto) Lymph # Lymph # (Auto) Seg Neutrophils % Seg Neuts % (Manual) Lymphocytes % (Manual) Seg Neutrophils # Seg Neutrophils # Man Nucleated RBC % Lymphocytes # (Manual) Monocytes # (Manual) PT INR Heparin Anti-Xa Level POC ABG pO2 ABG pH ABG Hemoglobin ABG Oxyhemoglobin ABG pO2 ABG HCO3 ABG O2 Saturation ABG Base Excess ABG Potassium ABG Chloride ABG Glucose Oxyhemoglobin Sodium 149 H Potassium 2.6 L* D Chloride Carbon Dioxide 33 H BUN 23 H Creatinine 0.5 L Glucose 174 H POC Glucose 187 H 195 H Lactic Acid Calcium 8.0 L AST Phosphorus 1.60 L Total Protein Albumin C-Reactive Protein Arterial Blood Glucose Arterial Blood Ionized Calcium Urine WBC (Auto) Crossmatch 02/01/20 02/01/20 02/02/20 18:15 23:35 04:33 WBC RBC Hgb Hct MCHC RDW Plt Count MCH Lymph % (Auto) Lymph # Lymph # (Auto) Seg Neutrophils % Seg Neuts % (Manual) Lymphocytes % (Manual) Seg Neutrophils # Seg Neutrophils # Man Nucleated RBC % Lymphocytes # (Manual) Monocytes # (Manual) PT INR Heparin Anti-Xa Level POC ABG pO2 ABG pH 7.549 H ABG Hemoglobin 9.8 L ABG Oxyhemoglobin ABG pO2 ABG HCO3 ABG O2 Saturation ABG Base Excess ABG Potassium ABG Chloride ABG Glucose Oxyhemoglobin Sodium Potassium Chloride Carbon Dioxide BUN Creatinine Glucose POC Glucose 226 H 252 H Lactic Acid Calcium AST Phosphorus Total Protein Albumin C-Reactive Protein Arterial Blood Glucose Arterial Blood Ionized Calcium Urine WBC (Auto) Crossmatch 02/02/20 02/02/20 02/02/20 05:25 05:25 05:40 WBC 15.5 H RBC 2.43 L Hgb 7.6 L Hct 22.9 L MCHC RDW 23.6 H Plt Count MCH Lymph % (Auto) Lymph # Lymph # (Auto) Seg Neutrophils % Seg Neuts % (Manual) 89.0 H Lymphocytes % (Manual) 3.0 L Seg Neutrophils # Seg Neutrophils # Man 13.8 H Nucleated RBC % Lymphocytes # (Manual) 0.5 L Monocytes # (Manual) 0.9 H PT INR Heparin Anti-Xa Level POC ABG pO2 ABG pH ABG Hemoglobin ABG Oxyhemoglobin ABG pO2 ABG HCO3 ABG O2 Saturation ABG Base Excess ABG Potassium ABG Chloride ABG Glucose Oxyhemoglobin Sodium Potassium 2.6 L* Chloride Carbon Dioxide 33 H BUN 26 H Creatinine Glucose 175 H POC Glucose 181 H Lactic Acid Calcium 7.9 L AST Phosphorus Total Protein Albumin C-Reactive Protein Arterial Blood Glucose Arterial Blood Ionized Calcium Urine WBC (Auto) Crossmatch 02/02/20 02/02/20 02/02/20 11:55 14:45 17:18 WBC RBC Hgb Hct MCHC RDW Plt Count MCH Lymph % (Auto) Lymph # Lymph # (Auto) Seg Neutrophils % Seg Neuts % (Manual) Lymphocytes % (Manual) Seg Neutrophils # Seg Neutrophils # Man Nucleated RBC % Lymphocytes # (Manual) Monocytes # (Manual) PT INR Heparin Anti-Xa Level POC ABG pO2 ABG pH 7.56 H ABG Hemoglobin 7.6 L ABG Oxyhemoglobin ABG pO2 ABG HCO3 ABG O2 Saturation ABG Base Excess ABG Potassium ABG Chloride ABG Glucose Oxyhemoglobin Sodium Potassium Chloride Carbon Dioxide BUN Creatinine Glucose POC Glucose 226 H 227 H Lactic Acid Calcium AST Phosphorus Total Protein Albumin C-Reactive Protein Arterial Blood Glucose Arterial Blood Ionized Calcium Urine WBC (Auto) Crossmatch 02/02/20 02/03/20 02/03/20 20:54 00:02 05:14 WBC 18.7 H RBC 2.45 L Hgb 7.6 L Hct 23.2 L MCHC RDW 23.5 H Plt Count MCH Lymph % (Auto) Lymph # Lymph # (Auto) Seg Neutrophils % Seg Neuts % (Manual) 94.0 H Lymphocytes % (Manual) 3.0 L Seg Neutrophils # Seg Neutrophils # Man 17.6 H Nucleated RBC % Lymphocytes # (Manual) 0.6 L Monocytes # (Manual) PT INR Heparin Anti-Xa Level POC ABG pO2 ABG pH ABG Hemoglobin ABG Oxyhemoglobin ABG pO2 ABG HCO3 ABG O2 Saturation ABG Base Excess ABG Potassium ABG Chloride ABG Glucose Oxyhemoglobin Sodium Potassium 3.2 L D Chloride Carbon Dioxide BUN Creatinine Glucose POC Glucose 204 H Lactic Acid Calcium AST Phosphorus Total Protein Albumin C-Reactive Protein Arterial Blood Glucose Arterial Blood Ionized Calcium Urine WBC (Auto) Crossmatch 02/03/20 02/03/20 02/03/20 05:14 05:14 05:20 WBC RBC Hgb Hct MCHC RDW Plt Count MCH Lymph % (Auto) Lymph # Lymph # (Auto) Seg Neutrophils % Seg Neuts % (Manual) Lymphocytes % (Manual) Seg Neutrophils # Seg Neutrophils # Man Nucleated RBC % Lymphocytes # (Manual) Monocytes # (Manual) PT INR Heparin Anti-Xa Level POC ABG pO2 ABG pH ABG Hemoglobin ABG Oxyhemoglobin ABG pO2 ABG HCO3 ABG O2 Saturation ABG Base Excess ABG Potassium ABG Chloride ABG Glucose Oxyhemoglobin Sodium Potassium 3.1 L Chloride Carbon Dioxide 33 H BUN 29 H Creatinine 0.5 L Glucose 160 H POC Glucose 146 H Lactic Acid Calcium 7.9 L AST Phosphorus 2.30 L Total Protein 4.8 L Albumin 2.4 L C-Reactive Protein Arterial Blood Glucose Arterial Blood Ionized Calcium Urine WBC (Auto) Crossmatch 02/03/20 02/03/20 02/03/20 12:35 18:14 23:26 WBC RBC Hgb Hct MCHC RDW Plt Count MCH Lymph % (Auto) Lymph # Lymph # (Auto) Seg Neutrophils % Seg Neuts % (Manual) Lymphocytes % (Manual) Seg Neutrophils # Seg Neutrophils # Man Nucleated RBC % Lymphocytes # (Manual) Monocytes # (Manual) PT INR Heparin Anti-Xa Level POC ABG pO2 ABG pH ABG Hemoglobin ABG Oxyhemoglobin ABG pO2 ABG HCO3 ABG O2 Saturation ABG Base Excess ABG Potassium ABG Chloride ABG Glucose Oxyhemoglobin Sodium Potassium Chloride Carbon Dioxide BUN Creatinine Glucose POC Glucose 219 H 248 H 173 H Lactic Acid Calcium AST Phosphorus Total Protein Albumin C-Reactive Protein Arterial Blood Glucose Arterial Blood Ionized Calcium Urine WBC (Auto) Crossmatch 02/04/20 02/04/20 02/04/20 05:34 05:36 06:51 WBC RBC Hgb Hct MCHC RDW Plt Count MCH Lymph % (Auto) Lymph # Lymph # (Auto) Seg Neutrophils % Seg Neuts % (Manual) Lymphocytes % (Manual) Seg Neutrophils # Seg Neutrophils # Man Nucleated RBC % Lymphocytes # (Manual) Monocytes # (Manual) PT INR Heparin Anti-Xa Level POC ABG pO2 ABG pH ABG Hemoglobin ABG Oxyhemoglobin ABG pO2 ABG HCO3 ABG O2 Saturation ABG Base Excess ABG Potassium ABG Chloride ABG Glucose Oxyhemoglobin Sodium Potassium Chloride Carbon Dioxide BUN Creatinine Glucose POC Glucose 56 L 64 L 127 H Lactic Acid Calcium AST Phosphorus Total Protein Albumin C-Reactive Protein Arterial Blood Glucose Arterial Blood Ionized Calcium Urine WBC (Auto) Crossmatch 02/04/20 02/04/20 02/04/20 11:57 13:42 13:53 WBC 19.2 H RBC 2.48 L Hgb 7.8 L Hct 23.5 L MCHC RDW 24.2 H Plt Count MCH Lymph % (Auto) Lymph # Lymph # (Auto) Seg Neutrophils % Seg Neuts % (Manual) 97.0 H Lymphocytes % (Manual) 2.0 L Seg Neutrophils # Seg Neutrophils # Man 18.6 H Nucleated RBC % Lymphocytes # (Manual) 0.4 L Monocytes # (Manual) PT INR Heparin Anti-Xa Level POC ABG pO2 118.2 H ABG pH 7.525 H ABG Hemoglobin 8.7 L ABG Oxyhemoglobin ABG pO2 ABG HCO3 ABG O2 Saturation ABG Base Excess ABG Potassium 2.8 L ABG Chloride ABG Glucose 185 H Oxyhemoglobin Sodium Potassium Chloride Carbon Dioxide BUN Creatinine Glucose POC Glucose 224 H Lactic Acid Calcium AST Phosphorus Total Protein Albumin C-Reactive Protein Arterial Blood Glucose 185 H Arterial Blood Ionized Calcium 4.5 L Urine WBC (Auto) Crossmatch 02/04/20 02/04/20 02/04/20 13:53 18:15 23:35 WBC RBC Hgb Hct MCHC RDW Plt Count MCH Lymph % (Auto) Lymph # Lymph # (Auto) Seg Neutrophils % Seg Neuts % (Manual) Lymphocytes % (Manual) Seg Neutrophils # Seg Neutrophils # Man Nucleated RBC % Lymphocytes # (Manual) Monocytes # (Manual) PT INR Heparin Anti-Xa Level POC ABG pO2 ABG pH ABG Hemoglobin ABG Oxyhemoglobin ABG pO2 ABG HCO3 ABG O2 Saturation ABG Base Excess ABG Potassium ABG Chloride ABG Glucose Oxyhemoglobin Sodium 147 H Potassium 2.8 L* Chloride Carbon Dioxide 38 H BUN 33 H Creatinine 0.5 L Glucose 202 H POC Glucose 215 H 197 H Lactic Acid Calcium AST Phosphorus Total Protein Albumin C-Reactive Protein Arterial Blood Glucose Arterial Blood Ionized Calcium Urine WBC (Auto) Crossmatch 02/05/20 02/05/20 02/05/20 01:03 04:00 04:00 WBC 26.7 H RBC 2.59 L Hgb 8.1 L Hct 24.6 L MCHC RDW 24.1 H Plt Count MCH Lymph % (Auto) 1.6 L Lymph # Lymph # (Auto) 0.4 L Seg Neutrophils % Seg Neuts % (Manual) Lymphocytes % (Manual) Seg Neutrophils # 25.9 H Seg Neutrophils # Man Nucleated RBC % Lymphocytes # (Manual) Monocytes # (Manual) PT INR Heparin Anti-Xa Level POC ABG pO2 ABG pH ABG Hemoglobin 7.1 L ABG Oxyhemoglobin ABG pO2 50.7 L ABG HCO3 29.6 H ABG O2 Saturation 82.7 L ABG Base Excess 4.8 H ABG Potassium ABG Chloride ABG Glucose Oxyhemoglobin 81.0 L Sodium 146 H Potassium Chloride Carbon Dioxide 32 H BUN 35 H Creatinine 0.5 L Glucose 226 H POC Glucose Lactic Acid Calcium AST Phosphorus Total Protein 5.1 L Albumin 2.2 L C-Reactive Protein Arterial Blood Glucose Arterial Blood Ionized Calcium Urine WBC (Auto) Crossmatch 02/05/20 02/05/20 02/06/20 05:32 17:56 00:19 WBC RBC Hgb Hct MCHC RDW Plt Count MCH Lymph % (Auto) Lymph # Lymph # (Auto) Seg Neutrophils % Seg Neuts % (Manual) Lymphocytes % (Manual) Seg Neutrophils # Seg Neutrophils # Man Nucleated RBC % Lymphocytes # (Manual) Monocytes # (Manual) PT INR Heparin Anti-Xa Level POC ABG pO2 ABG pH ABG Hemoglobin ABG Oxyhemoglobin ABG pO2 ABG HCO3 ABG O2 Saturation ABG Base Excess ABG Potassium ABG Chloride ABG Glucose Oxyhemoglobin Sodium Potassium Chloride Carbon Dioxide BUN Creatinine Glucose POC Glucose 239 H 175 H 309 H Lactic Acid Calcium AST Phosphorus Total Protein Albumin C-Reactive Protein Arterial Blood Glucose Arterial Blood Ionized Calcium Urine WBC (Auto) Crossmatch 02/06/20 02/06/20 02/06/20 04:26 04:27 05:11 WBC RBC Hgb Hct MCHC RDW Plt Count MCH Lymph % (Auto) Lymph # Lymph # (Auto) Seg Neutrophils % Seg Neuts % (Manual) Lymphocytes % (Manual) Seg Neutrophils # Seg Neutrophils # Man Nucleated RBC % Lymphocytes # (Manual) Monocytes # (Manual) PT INR Heparin Anti-Xa Level POC ABG pO2 175.3 H 157.2 H ABG pH 7.502 H 7.551 H ABG Hemoglobin 10.8 L 7.3 L ABG Oxyhemoglobin 98.3 H ABG pO2 ABG HCO3 ABG O2 Saturation ABG Base Excess ABG Potassium 3.3 L ABG Chloride 109.0 H ABG Glucose 148 H Oxyhemoglobin Sodium 148 H Potassium 3.0 L Chloride 107.3 H Carbon Dioxide 33 H BUN 33 H Creatinine 0.5 L Glucose 283 H POC Glucose Lactic Acid Calcium 7.9 L AST Phosphorus Total Protein 3.6 L D Albumin 1.2 L C-Reactive Protein Arterial Blood Glucose 148 H Arterial Blood Ionized Calcium Urine WBC (Auto) Crossmatch 02/06/20 02/06/20 02/06/20 05:40 08:45 11:52 WBC 16.3 H RBC 2.12 L Hgb 6.6 L Hct 20.3 L MCHC RDW 24.4 H Plt Count MCH Lymph % (Auto) Lymph # Lymph # (Auto) Seg Neutrophils % Seg Neuts % (Manual) 98.0 H Lymphocytes % (Manual) 1.0 L Seg Neutrophils # Seg Neutrophils # Man 16.0 H Nucleated RBC % Lymphocytes # (Manual) 0.2 L Monocytes # (Manual) PT INR Heparin Anti-Xa Level POC ABG pO2 ABG pH ABG Hemoglobin ABG Oxyhemoglobin ABG pO2 ABG HCO3 ABG O2 Saturation ABG Base Excess ABG Potassium ABG Chloride ABG Glucose Oxyhemoglobin Sodium Potassium Chloride Carbon Dioxide BUN Creatinine Glucose POC Glucose 347 H 132 H Lactic Acid Calcium AST Phosphorus Total Protein Albumin C-Reactive Protein Arterial Blood Glucose Arterial Blood Ionized Calcium Urine WBC (Auto) Crossmatch 02/06/20 02/07/20 02/07/20 18:26 00:08 05:41 WBC RBC Hgb Hct MCHC RDW Plt Count MCH Lymph % (Auto) Lymph # Lymph # (Auto) Seg Neutrophils % Seg Neuts % (Manual) Lymphocytes % (Manual) Seg Neutrophils # Seg Neutrophils # Man Nucleated RBC % Lymphocytes # (Manual) Monocytes # (Manual) PT INR Heparin Anti-Xa Level POC ABG pO2 ABG pH ABG Hemoglobin ABG Oxyhemoglobin ABG pO2 ABG HCO3 ABG O2 Saturation ABG Base Excess ABG Potassium ABG Chloride ABG Glucose Oxyhemoglobin Sodium Potassium Chloride Carbon Dioxide BUN Creatinine Glucose POC Glucose 114 H 111 H 164 H Lactic Acid Calcium AST Phosphorus Total Protein Albumin C-Reactive Protein Arterial Blood Glucose Arterial Blood Ionized Calcium Urine WBC (Auto) Crossmatch 02/07/20 02/07/20 02/07/20 11:49 17:56 23:27 WBC RBC Hgb Hct MCHC RDW Plt Count MCH Lymph % (Auto) Lymph # Lymph # (Auto) Seg Neutrophils % Seg Neuts % (Manual) Lymphocytes % (Manual) Seg Neutrophils # Seg Neutrophils # Man Nucleated RBC % Lymphocytes # (Manual) Monocytes # (Manual) PT INR Heparin Anti-Xa Level POC ABG pO2 ABG pH ABG Hemoglobin ABG Oxyhemoglobin ABG pO2 ABG HCO3 ABG O2 Saturation ABG Base Excess ABG Potassium ABG Chloride ABG Glucose Oxyhemoglobin Sodium Potassium Chloride Carbon Dioxide BUN Creatinine Glucose POC Glucose 146 H 140 H 164 H Lactic Acid Calcium AST Phosphorus Total Protein Albumin C-Reactive Protein Arterial Blood Glucose Arterial Blood Ionized Calcium Urine WBC (Auto) Crossmatch 02/08/20 02/08/20 02/08/20 03:55 04:46 04:46 WBC RBC 2.30 L Hgb 7.3 L Hct 22.0 L MCHC RDW 23.9 H Plt Count MCH Lymph % (Auto) 8.5 L Lymph # Lymph # (Auto) 0.8 L Seg Neutrophils % 87.6 H Seg Neuts % (Manual) Lymphocytes % (Manual) Seg Neutrophils # 8.7 H Seg Neutrophils # Man Nucleated RBC % Lymphocytes # (Manual) Monocytes # (Manual) PT INR Heparin Anti-Xa Level POC ABG pO2 112.8 H ABG pH 7.511 H ABG Hemoglobin 7.8 L ABG Oxyhemoglobin ABG pO2 ABG HCO3 ABG O2 Saturation ABG Base Excess ABG Potassium 2.9 L ABG Chloride ABG Glucose 112 H Oxyhemoglobin Sodium Potassium 3.1 L Chloride Carbon Dioxide 31 H BUN 29 H Creatinine 0.3 L Glucose 108 H POC Glucose Lactic Acid Calcium AST Phosphorus Total Protein Albumin C-Reactive Protein Arterial Blood Glucose 112 H Arterial Blood Ionized Calcium Urine WBC (Auto) Crossmatch 02/08/20 02/08/20 02/08/20 05:31 10:15 12:10 WBC RBC Hgb Hct MCHC RDW Plt Count MCH Lymph % (Auto) Lymph # Lymph # (Auto) Seg Neutrophils % Seg Neuts % (Manual) Lymphocytes % (Manual) Seg Neutrophils # Seg Neutrophils # Man Nucleated RBC % Lymphocytes # (Manual) Monocytes # (Manual) PT INR Heparin Anti-Xa Level POC ABG pO2 ABG pH ABG Hemoglobin ABG Oxyhemoglobin ABG pO2 ABG HCO3 ABG O2 Saturation ABG Base Excess ABG Potassium ABG Chloride ABG Glucose Oxyhemoglobin Sodium Potassium Chloride Carbon Dioxide BUN Creatinine Glucose POC Glucose 117 H 164 H 170 H Lactic Acid Calcium AST Phosphorus Total Protein Albumin C-Reactive Protein Arterial Blood Glucose Arterial Blood Ionized Calcium Urine WBC (Auto) Crossmatch 02/08/20 02/08/20 02/09/20 12:23 23:50 03:04 WBC RBC Hgb Hct MCHC RDW Plt Count MCH Lymph % (Auto) Lymph # Lymph # (Auto) Seg Neutrophils % Seg Neuts % (Manual) Lymphocytes % (Manual) Seg Neutrophils # Seg Neutrophils # Man Nucleated RBC % Lymphocytes # (Manual) Monocytes # (Manual) PT INR Heparin Anti-Xa Level POC ABG pO2 ABG pH 7.501 H ABG Hemoglobin 7.5 L ABG Oxyhemoglobin ABG pO2 ABG HCO3 ABG O2 Saturation ABG Base Excess ABG Potassium ABG Chloride ABG Glucose 143 H Oxyhemoglobin Sodium Potassium Chloride Carbon Dioxide BUN Creatinine Glucose POC Glucose 164 H 126 H Lactic Acid Calcium AST Phosphorus Total Protein Albumin C-Reactive Protein Arterial Blood Glucose 143 H Arterial Blood Ionized Calcium Urine WBC (Auto) Crossmatch 02/09/20 02/09/20 02/09/20 05:57 08:00 12:39 WBC RBC Hgb Hct MCHC RDW Plt Count MCH Lymph % (Auto) Lymph # Lymph # (Auto) Seg Neutrophils % Seg Neuts % (Manual) Lymphocytes % (Manual) Seg Neutrophils # Seg Neutrophils # Man Nucleated RBC % Lymphocytes # (Manual) Monocytes # (Manual) PT INR Heparin Anti-Xa Level POC ABG pO2 ABG pH ABG Hemoglobin ABG Oxyhemoglobin ABG pO2 ABG HCO3 ABG O2 Saturation ABG Base Excess ABG Potassium ABG Chloride ABG Glucose Oxyhemoglobin Sodium Potassium 3.3 L Chloride Carbon Dioxide 34 H BUN 27 H Creatinine 0.4 L Glucose 127 H POC Glucose 160 H 154 H Lactic Acid Calcium 8.2 L AST Phosphorus Total Protein Albumin C-Reactive Protein Arterial Blood Glucose Arterial Blood Ionized Calcium Urine WBC (Auto) Crossmatch 02/09/20 02/09/20 02/09/20 18:17 23:43 Unknown WBC RBC 2.15 L Hgb 7.0 L Hct 20.8 L MCHC RDW 23.3 H Plt Count MCH 33 H Lymph % (Auto) Lymph # Lymph # (Auto) Seg Neutrophils % Seg Neuts % (Manual) Lymphocytes % (Manual) Seg Neutrophils # Seg Neutrophils # Man Nucleated RBC % Lymphocytes # (Manual) Monocytes # (Manual) PT INR Heparin Anti-Xa Level POC ABG pO2 ABG pH ABG Hemoglobin ABG Oxyhemoglobin ABG pO2 ABG HCO3 ABG O2 Saturation ABG Base Excess ABG Potassium ABG Chloride ABG Glucose Oxyhemoglobin Sodium Potassium Chloride Carbon Dioxide BUN Creatinine Glucose POC Glucose 152 H 177 H Lactic Acid Calcium AST Phosphorus Total Protein Albumin C-Reactive Protein Arterial Blood Glucose Arterial Blood Ionized Calcium Urine WBC (Auto) Crossmatch 02/10/20 02/10/20 02/10/20 04:38 05:24 11:44 WBC RBC Hgb Hct MCHC RDW Plt Count MCH Lymph % (Auto) Lymph # Lymph # (Auto) Seg Neutrophils % Seg Neuts % (Manual) Lymphocytes % (Manual) Seg Neutrophils # Seg Neutrophils # Man Nucleated RBC % Lymphocytes # (Manual) Monocytes # (Manual) PT INR Heparin Anti-Xa Level POC ABG pO2 ABG pH 7.502 H ABG Hemoglobin 6.2 L ABG Oxyhemoglobin ABG pO2 136.0 H ABG HCO3 29.3 H ABG O2 Saturation ABG Base Excess 5.7 H ABG Potassium ABG Chloride ABG Glucose Oxyhemoglobin Sodium Potassium Chloride Carbon Dioxide BUN Creatinine Glucose POC Glucose 113 H 176 H Lactic Acid Calcium AST Phosphorus Total Protein Albumin C-Reactive Protein Arterial Blood Glucose Arterial Blood Ionized Calcium Urine WBC (Auto) Crossmatch 02/10/20 02/11/20 02/11/20 23:42 03:43 04:12 WBC RBC 2.12 L Hgb 6.9 L Hct 20.6 L MCHC RDW 23.4 H Plt Count MCH 33 H Lymph % (Auto) Lymph # Lymph # (Auto) Seg Neutrophils % 84.7 H Seg Neuts % (Manual) 83.0 H Lymphocytes % (Manual) 11.0 L Seg Neutrophils # Seg Neutrophils # Man Nucleated RBC % Lymphocytes # (Manual) 1.0 L Monocytes # (Manual) PT INR Heparin Anti-Xa Level POC ABG pO2 112.6 H ABG pH 7.480 H ABG Hemoglobin 7.2 L ABG Oxyhemoglobin ABG pO2 ABG HCO3 ABG O2 Saturation ABG Base Excess ABG Potassium ABG Chloride ABG Glucose 154 H Oxyhemoglobin Sodium Potassium Chloride Carbon Dioxide BUN Creatinine Glucose POC Glucose 149 H Lactic Acid Calcium AST Phosphorus Total Protein Albumin C-Reactive Protein Arterial Blood Glucose 154 H Arterial Blood Ionized Calcium Urine WBC (Auto) Crossmatch 02/11/20 02/11/20 02/11/20 04:12 05:50 08:22 WBC RBC Hgb Hct MCHC RDW Plt Count MCH Lymph % (Auto) Lymph # Lymph # (Auto) Seg Neutrophils % Seg Neuts % (Manual) Lymphocytes % (Manual) Seg Neutrophils # Seg Neutrophils # Man Nucleated RBC % Lymphocytes # (Manual) Monocytes # (Manual) PT INR Heparin Anti-Xa Level POC ABG pO2 ABG pH ABG Hemoglobin ABG Oxyhemoglobin ABG pO2 ABG HCO3 ABG O2 Saturation ABG Base Excess ABG Potassium ABG Chloride ABG Glucose Oxyhemoglobin Sodium 146 H Potassium Chloride Carbon Dioxide BUN 24 H Creatinine 0.4 L Glucose 168 H POC Glucose 190 H Lactic Acid Calcium 8.0 L AST Phosphorus Total Protein Albumin C-Reactive Protein Arterial Blood Glucose Arterial Blood Ionized Calcium Urine WBC (Auto) Crossmatch See Detail 02/11/20 02/11/20 02/11/20 11:41 17:33 23:40 WBC RBC Hgb Hct MCHC RDW Plt Count MCH Lymph % (Auto) Lymph # Lymph # (Auto) Seg Neutrophils % Seg Neuts % (Manual) Lymphocytes % (Manual) Seg Neutrophils # Seg Neutrophils # Man Nucleated RBC % Lymphocytes # (Manual) Monocytes # (Manual) PT INR Heparin Anti-Xa Level POC ABG pO2 ABG pH ABG Hemoglobin ABG Oxyhemoglobin ABG pO2 ABG HCO3 ABG O2 Saturation ABG Base Excess ABG Potassium ABG Chloride ABG Glucose Oxyhemoglobin Sodium Potassium Chloride Carbon Dioxide BUN Creatinine Glucose POC Glucose 260 H 132 H 54 L Lactic Acid Calcium AST Phosphorus Total Protein Albumin C-Reactive Protein Arterial Blood Glucose Arterial Blood Ionized Calcium Urine WBC (Auto) Crossmatch 02/12/20 02/12/20 02/12/20 05:16 06:45 11:48 WBC RBC Hgb 8.6 L Hct 25.2 L MCHC RDW Plt Count MCH Lymph % (Auto) Lymph # Lymph # (Auto) Seg Neutrophils % Seg Neuts % (Manual) Lymphocytes % (Manual) Seg Neutrophils # Seg Neutrophils # Man Nucleated RBC % Lymphocytes # (Manual) Monocytes # (Manual) PT INR Heparin Anti-Xa Level POC ABG pO2 ABG pH ABG Hemoglobin ABG Oxyhemoglobin ABG pO2 ABG HCO3 ABG O2 Saturation ABG Base Excess ABG Potassium ABG Chloride ABG Glucose Oxyhemoglobin Sodium Potassium Chloride Carbon Dioxide BUN Creatinine Glucose POC Glucose 127 H 163 H Lactic Acid Calcium AST Phosphorus Total Protein Albumin C-Reactive Protein Arterial Blood Glucose Arterial Blood Ionized Calcium Urine WBC (Auto) Crossmatch 02/12/20 02/12/20 02/13/20 17:25 23:53 04:30 WBC RBC Hgb Hct MCHC RDW Plt Count MCH Lymph % (Auto) Lymph # Lymph # (Auto) Seg Neutrophils % Seg Neuts % (Manual) Lymphocytes % (Manual) Seg Neutrophils # Seg Neutrophils # Man Nucleated RBC % Lymphocytes # (Manual) Monocytes # (Manual) PT INR Heparin Anti-Xa Level POC ABG pO2 ABG pH 7.463 H ABG Hemoglobin ABG Oxyhemoglobin ABG pO2 98.4 H ABG HCO3 27.7 H ABG O2 Saturation ABG Base Excess 3.7 H ABG Potassium ABG Chloride ABG Glucose Oxyhemoglobin Sodium Potassium Chloride Carbon Dioxide BUN Creatinine Glucose POC Glucose 152 H 140 H Lactic Acid Calcium AST Phosphorus Total Protein Albumin C-Reactive Protein Arterial Blood Glucose Arterial Blood Ionized Calcium Urine WBC (Auto) Crossmatch 02/13/20 02/13/20 02/13/20 04:45 04:45 05:19 WBC RBC 2.73 L Hgb 8.7 L Hct 25.6 L MCHC RDW 21.3 H Plt Count MCH Lymph % (Auto) 12.0 L Lymph # Lymph # (Auto) 1.0 L Seg Neutrophils % 82.5 H Seg Neuts % (Manual) Lymphocytes % (Manual) Seg Neutrophils # Seg Neutrophils # Man Nucleated RBC % Lymphocytes # (Manual) Monocytes # (Manual) PT INR Heparin Anti-Xa Level POC ABG pO2 ABG pH ABG Hemoglobin ABG Oxyhemoglobin ABG pO2 ABG HCO3 ABG O2 Saturation ABG Base Excess ABG Potassium ABG Chloride ABG Glucose Oxyhemoglobin Sodium Potassium 3.4 L Chloride Carbon Dioxide 31 H BUN 24 H Creatinine 0.3 L Glucose 122 H POC Glucose 127 H Lactic Acid Calcium 8.0 L AST Phosphorus Total Protein 4.2 L Albumin 2.0 L C-Reactive Protein Arterial Blood Glucose Arterial Blood Ionized Calcium Urine WBC (Auto) Crossmatch 02/13/20 02/14/20 02/14/20 23:08 04:26 04:26 WBC RBC 2.74 L Hgb 8.7 L Hct 25.8 L MCHC RDW 21.3 H Plt Count MCH Lymph % (Auto) 13.2 L Lymph # Lymph # (Auto) Seg Neutrophils % 81.4 H Seg Neuts % (Manual) Lymphocytes % (Manual) Seg Neutrophils # 8.4 H Seg Neutrophils # Man Nucleated RBC % Lymphocytes # (Manual) Monocytes # (Manual) PT INR Heparin Anti-Xa Level POC ABG pO2 ABG pH ABG Hemoglobin ABG Oxyhemoglobin ABG pO2 ABG HCO3 ABG O2 Saturation ABG Base Excess ABG Potassium ABG Chloride ABG Glucose Oxyhemoglobin Sodium Potassium 3.4 L Chloride 107.6 H Carbon Dioxide BUN 20 H Creatinine 0.3 L Glucose 170 H POC Glucose 148 H Lactic Acid Calcium 8.2 L AST Phosphorus Total Protein Albumin C-Reactive Protein Arterial Blood Glucose Arterial Blood Ionized Calcium Urine WBC (Auto) Crossmatch 02/14/20 02/14/20 02/14/20 05:05 12:08 17:37 WBC RBC Hgb Hct MCHC RDW Plt Count MCH Lymph % (Auto) Lymph # Lymph # (Auto) Seg Neutrophils % Seg Neuts % (Manual) Lymphocytes % (Manual) Seg Neutrophils # Seg Neutrophils # Man Nucleated RBC % Lymphocytes # (Manual) Monocytes # (Manual) PT INR Heparin Anti-Xa Level POC ABG pO2 ABG pH ABG Hemoglobin ABG Oxyhemoglobin ABG pO2 ABG HCO3 ABG O2 Saturation ABG Base Excess ABG Potassium ABG Chloride ABG Glucose Oxyhemoglobin Sodium Potassium Chloride Carbon Dioxide BUN Creatinine Glucose POC Glucose 182 H 156 H 144 H Lactic Acid Calcium AST Phosphorus Total Protein Albumin C-Reactive Protein Arterial Blood Glucose Arterial Blood Ionized Calcium Urine WBC (Auto) Crossmatch 02/14/20 02/15/20 02/15/20 23:36 05:44 12:11 WBC RBC Hgb Hct MCHC RDW Plt Count MCH Lymph % (Auto) Lymph # Lymph # (Auto) Seg Neutrophils % Seg Neuts % (Manual) Lymphocytes % (Manual) Seg Neutrophils # Seg Neutrophils # Man Nucleated RBC % Lymphocytes # (Manual) Monocytes # (Manual) PT INR Heparin Anti-Xa Level POC ABG pO2 ABG pH ABG Hemoglobin ABG Oxyhemoglobin ABG pO2 ABG HCO3 ABG O2 Saturation ABG Base Excess ABG Potassium ABG Chloride ABG Glucose Oxyhemoglobin Sodium Potassium Chloride Carbon Dioxide BUN Creatinine Glucose POC Glucose 183 H 203 H 140 H Lactic Acid Calcium AST Phosphorus Total Protein Albumin C-Reactive Protein Arterial Blood Glucose Arterial Blood Ionized Calcium Urine WBC (Auto) Crossmatch 02/15/20 02/16/20 02/16/20 17:23 00:12 05:09 WBC RBC Hgb 8.8 L Hct 26.0 L MCHC RDW Plt Count MCH Lymph % (Auto) Lymph # Lymph # (Auto) Seg Neutrophils % Seg Neuts % (Manual) Lymphocytes % (Manual) Seg Neutrophils # Seg Neutrophils # Man Nucleated RBC % Lymphocytes # (Manual) Monocytes # (Manual) PT INR Heparin Anti-Xa Level POC ABG pO2 ABG pH ABG Hemoglobin ABG Oxyhemoglobin ABG pO2 ABG HCO3 ABG O2 Saturation ABG Base Excess ABG Potassium ABG Chloride ABG Glucose Oxyhemoglobin Sodium Potassium Chloride Carbon Dioxide BUN Creatinine Glucose POC Glucose 170 H 133 H Lactic Acid Calcium AST Phosphorus Total Protein Albumin C-Reactive Protein Arterial Blood Glucose Arterial Blood Ionized Calcium Urine WBC (Auto) Crossmatch 02/16/20 02/16/20 02/16/20 05:09 05:21 12:22 WBC RBC Hgb Hct MCHC RDW Plt Count MCH Lymph % (Auto) Lymph # Lymph # (Auto) Seg Neutrophils % Seg Neuts % (Manual) Lymphocytes % (Manual) Seg Neutrophils # Seg Neutrophils # Man Nucleated RBC % Lymphocytes # (Manual) Monocytes # (Manual) PT INR Heparin Anti-Xa Level POC ABG pO2 ABG pH ABG Hemoglobin ABG Oxyhemoglobin ABG pO2 ABG HCO3 ABG O2 Saturation ABG Base Excess ABG Potassium ABG Chloride ABG Glucose Oxyhemoglobin Sodium Potassium Chloride Carbon Dioxide 31 H BUN 18 H Creatinine 0.3 L Glucose 152 H POC Glucose 160 H 138 H Lactic Acid Calcium 7.9 L AST Phosphorus Total Protein Albumin C-Reactive Protein Arterial Blood Glucose Arterial Blood Ionized Calcium Urine WBC (Auto) Crossmatch 02/16/20 02/17/20 02/17/20 16:35 00:01 05:22 WBC RBC Hgb Hct MCHC RDW Plt Count MCH Lymph % (Auto) Lymph # Lymph # (Auto) Seg Neutrophils % Seg Neuts % (Manual) Lymphocytes % (Manual) Seg Neutrophils # Seg Neutrophils # Man Nucleated RBC % Lymphocytes # (Manual) Monocytes # (Manual) PT INR Heparin Anti-Xa Level POC ABG pO2 ABG pH ABG Hemoglobin ABG Oxyhemoglobin ABG pO2 ABG HCO3 ABG O2 Saturation ABG Base Excess ABG Potassium ABG Chloride ABG Glucose Oxyhemoglobin Sodium Potassium Chloride Carbon Dioxide BUN Creatinine Glucose POC Glucose 142 H 173 H 126 H Lactic Acid Calcium AST Phosphorus Total Protein Albumin C-Reactive Protein Arterial Blood Glucose Arterial Blood Ionized Calcium Urine WBC (Auto) Crossmatch 02/17/20 02/17/20 02/18/20 11:35 18:08 00:15 WBC RBC Hgb Hct MCHC RDW Plt Count MCH Lymph % (Auto) Lymph # Lymph # (Auto) Seg Neutrophils % Seg Neuts % (Manual) Lymphocytes % (Manual) Seg Neutrophils # Seg Neutrophils # Man Nucleated RBC % Lymphocytes # (Manual) Monocytes # (Manual) PT INR Heparin Anti-Xa Level POC ABG pO2 ABG pH ABG Hemoglobin ABG Oxyhemoglobin ABG pO2 ABG HCO3 ABG O2 Saturation ABG Base Excess ABG Potassium ABG Chloride ABG Glucose Oxyhemoglobin Sodium Potassium Chloride Carbon Dioxide BUN Creatinine Glucose POC Glucose 113 H 136 H 160 H Lactic Acid Calcium AST Phosphorus Total Protein Albumin C-Reactive Protein Arterial Blood Glucose Arterial Blood Ionized Calcium Urine WBC (Auto) Crossmatch 02/18/20 02/18/20 02/18/20 04:43 04:43 05:30 WBC RBC 3.24 L Hgb Hct MCHC RDW 20.1 H Plt Count 455 H MCH Lymph % (Auto) Lymph # Lymph # (Auto) Seg Neutrophils % Seg Neuts % (Manual) Lymphocytes % (Manual) Seg Neutrophils # Seg Neutrophils # Man Nucleated RBC % Lymphocytes # (Manual) Monocytes # (Manual) PT INR Heparin Anti-Xa Level POC ABG pO2 ABG pH ABG Hemoglobin ABG Oxyhemoglobin ABG pO2 ABG HCO3 ABG O2 Saturation ABG Base Excess ABG Potassium ABG Chloride ABG Glucose Oxyhemoglobin Sodium Potassium Chloride Carbon Dioxide BUN Creatinine 0.3 L Glucose 118 H POC Glucose 139 H Lactic Acid Calcium AST Phosphorus Total Protein Albumin C-Reactive Protein Arterial Blood Glucose Arterial Blood Ionized Calcium Urine WBC (Auto) Crossmatch 02/18/20 02/18/20 02/19/20 11:55 17:51 00:00 WBC RBC Hgb Hct MCHC RDW Plt Count MCH Lymph % (Auto) Lymph # Lymph # (Auto) Seg Neutrophils % Seg Neuts % (Manual) Lymphocytes % (Manual) Seg Neutrophils # Seg Neutrophils # Man Nucleated RBC % Lymphocytes # (Manual) Monocytes # (Manual) PT INR Heparin Anti-Xa Level POC ABG pO2 ABG pH ABG Hemoglobin ABG Oxyhemoglobin ABG pO2 ABG HCO3 ABG O2 Saturation ABG Base Excess ABG Potassium ABG Chloride ABG Glucose Oxyhemoglobin Sodium Potassium Chloride Carbon Dioxide BUN Creatinine Glucose POC Glucose 165 H 139 H 141 H Lactic Acid Calcium AST Phosphorus Total Protein Albumin C-Reactive Protein Arterial Blood Glucose Arterial Blood Ionized Calcium Urine WBC (Auto) Crossmatch 02/19/20 05:45 WBC RBC Hgb Hct MCHC RDW Plt Count MCH Lymph % (Auto) Lymph # Lymph # (Auto) Seg Neutrophils % Seg Neuts % (Manual) Lymphocytes % (Manual) Seg Neutrophils # Seg Neutrophils # Man Nucleated RBC % Lymphocytes # (Manual) Monocytes # (Manual) PT INR Heparin Anti-Xa Level POC ABG pO2 ABG pH ABG Hemoglobin ABG Oxyhemoglobin ABG pO2 ABG HCO3 ABG O2 Saturation ABG Base Excess ABG Potassium ABG Chloride ABG Glucose Oxyhemoglobin Sodium Potassium Chloride Carbon Dioxide BUN Creatinine Glucose POC Glucose 169 H Lactic Acid Calcium AST Phosphorus Total Protein Albumin C-Reactive Protein Arterial Blood Glucose Arterial Blood Ionized Calcium Urine WBC (Auto) Crossmatch Allied health notes reviewed: RT
[2020-02-19] MEDS ORDERED: SODIUM CHLORIDE 0.9% 250ML 250 ML IV ONE (21:15)
[2020-02-19] MEDS: MIRTAZAPINE 15 MG TAB PO SCH (21:42)
[2020-02-19] MEDS: DONEPEZIL 10 MG TAB PO SCH (21:42)
[2020-02-19] MEDS ORDERED: NORepinephrine/NS 4 MG-250 ML 4 MG/250 ML BAG IV SCH (22:00)
[2020-02-19] MEDS ORDERED: LORazepam 2 MG/ML VIAL IV ONE (22:00)
[2020-02-19] MEDS: traZODone 50 MG TAB PO SCH (23:12)
[2020-02-20] MEDS: INSULIN REGULAR, HUMAN 100 UNIT/ML 3ML VIAL SUB-Q SCH ×4 (00:11→19:05)
[2020-02-20] MEDS: PIPERACIL/TAZOBACTA 4.5/NS 100 4.5 GM/100 ML VIAL IV SCH ×3 (05:13→21:17)
--- NOTE | 2020-02-20 08:06 | Progress Note ---
Assessment and Plan Assessment and plan: 69-year-old -[place] female with known history of dementia, and according to the does not talk much due to this. Diabetes mellitus and pulmonary embolism was admitted through the emergency room from the group home on 01/07 for decreased responsiveness, lethargy and hypotension. Patient had sepsis UTI and sacral decubitus ulcer evaluated by ID, medications optimized, patient went into acute hypoxic respiratory failure requiring intubation admitted to ICU, extubated, patient sustained cardiac arrest x2, Requiring reintubation, became vent dependent, surgery evaluated underwent trach and PEG, currently patient is awaiting LTAC/SNF placement Patient remains vent dependent, with severe metabolic and hypoxic encephalopathy. Patient has unstageable sacral decubitus ulcer status post debridement Sepsis on long-term antibiotics total 6 weeks per ID, stop date 02/27/2020 --Acute hypoxic respiratory failure; vent dependent s/p tracheostomy,02/13/2020 per surgery, trach care, ventilatory support status post extubation 02/02/2020 but had to be reintubated on 02/04 We will continue current care, pulmonary critical following --Dysphagia s/p PEG placement; continue PEG feeds per protocol --Shock/ septic shock; s/p Levophed,monitor off Levophed --s/p PEA arrest night of 01/28/2020 and 02/05/2020 s/p CPR per ACLS protocol --Anoxic/hypoxic brain injury[status post PEA cardiac arrest]; supportive care Poor prognosis, family aware --Unstageable sacral decubitus ulcer, infected/POA s/p wound debridement on 01/15. Continue wound vac , Proteus bacteremia On zosyn 4.5 g IV q8h total 6 weeks per ID stop date 02/27/2020 --Sepsis /Proteus bacteremia: Due to sacral decubitus Long-term Zosyn per ID stop date 02/27/2020[total 6 weeks] --Hypokalemia /Hypernatremia; resolved --Anemia ; received 1 unit PRBC, now Hb 8.8 -- Diabetes mellitus; Blood sugars well controlled, A1c 5.3 Accu-Chek,SSC, long-acting insulin as needed Tube feeding diet -- Hydropneumothorax, not POA Patient developed hydropneumothorax on 01/15. Surgery evaluated s/p chest tube placed on 01/15. Improved, s/p chest tube removed 01/22, extubated 02/02/2020 Reintubated 02/05/2020 , tracheostomy 02/13/2020 -- large Left pleural effusion 01/25 01/27; s/p bronchoscopy and Therapeutic suctioning of the lungs done by health and nutrition specialist -- UTI (urinary tract infection)Completed antibiotics --h/o Bilateral pulmonary embolism 7 months ago Repeat CTA chest and LE doppler showed no acute PE or DVT, eliquis stopped -- Dementia: Continue donepezil --Severe protein-calorie malnutrition PEG placed 01/13. PEG feeds per protocol --DVT prophylaxis; SCDs --Disposition; possible LTAC placement Closely monitor the patient and adjust management as needed Plan of care reviewed with the patient and her nurse The high probability of a clinically significant, sudden or life threatening deterioration of the [Respiratory, APPLIANCE MECHANIC, CVs] system(s) required my full and direct attention, intervention and personal management. The aggregate critical care time was [31] minutes. This time is in addition to time spent performing reported procedures but includes the following: [x] Data Review and interpretation [x] Patient assessment and monitoring of vital signs [x] Documentation [x] Medication orders and management . Patient currently with PSV/CPAP FiO2 50%, PEEP of 6 and pressure support of 10. Continue PSV trials as tolerated and wean per pulmonary. Recall ID consultation. 02/08/2020. Patient with Proteus bacteremia likely from sacral decubitus. Continue Zosyn 4.5 g IV every 8 hours until stop date of 02/26. Patient still on mechanical ventilation AC mode rate 12, tidal volume 350, FiO2 30% and PEEP of 6. Poor prognosis. Consider hospice. Continue scopolamine for secretion control. Continue pressors to maintain MAP > 65; currently off. 02/09/2020. Continue Zosyn 4.5 g IV every 8 hours for Proteus bacteremia with end date of 02/27/2020. Continue wound care/wound VAC per surgery. Patient still on mechanical ventilation AC mode rate 12, tidal volume 350, FiO2 30% and PEEP of 6. Poor prognosis. Consider hospice. Continue scopolamine for secretion control. Currently off pressors. 02/09; evaluated by surgery, planning tracheostomy pending COVID test 02/10; possible tracheostomy today pending COVID test, surgery following 02/11; patient n.p.o. from midnight, possible tracheostomy tomorrow Received 1 unit of PRBC, Hb improved to 8.6 02/12; scheduled for tracheostomy today 02/13; trach care, bilateral upper extremity L edema and swelling, check venous Doppler 02/14; right upper extremity swelling edema, DC the line, elevate the limb 02/15;RUE venous Doppler no DVT, superficial thrombophlebitis, elevate the limb and supportive care 02/16; pending LTAC/SNF placement 02/17; pending LTAC/SNF placement 02/18; trach and PEG, on ventilatory support, awaiting LTAC placement. Sacral decubitus long-term a antibiotics Zosyn stop date 02/27/202002/19: Overnight patient experienced some hypotensive episodes. Was res uscitated with IV fluids. Doppler done over the course of the week showed a superficial right cephalic vein thrombosis. Will obtain intermittent labs this morning my understanding is that we are awaiting placement to LTAC. Patient is status post trach and PEG. Disposition; Awaiting LTAC/SNF placement History Interval history: Patient seen and examined. Remains on ventilatory support Hospitalist Physical - Physical exam Narrative exam: General appearance: Present: Remains on full ventilatory support. no acute distress, well-nourished, Lethargic - EENT Eyes: Present: PERRL - Neck Neck: Present: supple - Respiratory Respiratory: bilateral: CTA - Cardiovascular Heart Sounds: Present: S1 & S2 - Extremities Extremities: generalized edema edema, CONTRACTED UPPER EXT - Abdominal General gastrointestinal: soft, non-tender, non-distended, normal bowel sounds - Neurologic Neurologic: CNII-XII intact - Constitutional Vitals: Temp Pulse Resp BP Pulse Ox 97.8 F 75 19 110/52 100 02/20/20 03:22 02/20/20 05:15 02/20/20 05:15 02/20/20 05:15 02/20/20 05:15 General appearance: Present: no acute distress, well-nourished, other (Tracheostomy on vent) Results - Labs CBC & Chem 7: 02/20/20 08:24 02/20/20 08:24 Labs: Laboratory Last Values WBC 7.0 K/mm3 (4.5-11.0) 02/18/20 04:43 RBC 3.24 M/mm3 (3.65-5.03) L 02/18/20 04:43 Hgb 10.4 gm/dl (10.1-14.3) 02/18/20 04:43 Hct 30.9 % (30.3-42.9) 02/18/20 04:43 MCV 95 fl (79-97) 02/18/20 04:43 MCH 32 pg (28-32) 02/18/20 04:43 MCHC 34 % (30-34) 02/18/20 04:43 RDW 20.1 % (13.2-15.2) H 02/18/20 04:43 Plt Count 455 K/mm3 (140-440) H 02/18/20 04:43 Lymph % (Auto) 13.2 % (13.4-35.0) L 02/14/20 04:26 Dooly % (Auto) 3.6 % (0.0-7.3) 02/14/20 04:26 Eos % (Auto) 1.0 % (0.0-4.3) 02/14/20 04:26 Baso % (Auto) 0.8 % (0.0-1.8) 02/14/20 04:26 Lymph # (Auto) 1.4 K/mm3 (1.2-5.4) 02/14/20 04:26 Dooly # (Auto) 0.4 K/mm3 (0.0-0.8) 02/14/20 04:26 Eos # (Auto) 0.1 K/mm3 (0.0-0.4) 02/14/20 04:26 Baso # (Auto) 0.1 K/mm3 (0.0-0.1) 02/14/20 04:26 Add Manual Diff Complete 02/11/20 04:12 Total Counted 100 02/11/20 04:12 Seg Neutrophils % 81.4 % (40.0-70.0) H 02/14/20 04:26 Seg Neuts % (Manual) 83.0 % (40.0-70.0) H 02/11/20 04:12 Band Neutrophils % 0 % 02/11/20 04:12 Lymphocytes % (Manual) 11.0 % (13.4-35.0) L 02/11/20 04:12 Reactive Lymphs % (Man) 0 % 02/11/20 04:12 Monocytes % (Manual) 5.0 % (0.0-7.3) 02/11/20 04:12 Eosinophils % (Manual) 1.0 % (0.0-4.3) 02/11/20 04:12 Basophils % (Manual) 0 % (0.0-1.8) 02/11/20 04:12 Metamyelocytes % 0 % 02/11/20 04:12 Myelocytes % 0 % 02/11/20 04:12 Promyelocytes % 0 % 02/11/20 04:12 Blast Cells % 0 % 02/11/20 04:12 Nucleated RBC % Not Reportable 02/11/20 04:12 Seg Neutrophils # 8.4 K/mm3 (1.8-7.7) H 02/14/20 04:26 Seg Neutrophils # Man 7.6 K/mm3 (1.8-7.7) 02/11/20 04:12 Band Neutrophils # 0.0 K/mm3 02/11/20 04:12 Lymphocytes # (Manual) 1.0 K/mm3 (1.2-5.4) L 02/11/20 04:12 Abs React Lymphs (Man) 0.0 K/mm3 02/11/20 04:12 Monocytes # (Manual) 0.5 K/mm3 (0.0-0.8) 02/11/20 04:12 Eosinophils # (Manual) 0.1 K/mm3 (0.0-0.4) 02/11/20 04:12 Basophils # (Manual) 0.0 K/mm3 (0.0-0.1) 02/11/20 04:12 Metamyelocytes # 0.0 K/mm3 02/11/20 04:12 Myelocytes # 0.0 K/mm3 02/11/20 04:12 Promyelocytes # 0.0 K/mm3 02/11/20 04:12 Blast Cells # 0.0 K/mm3 02/11/20 04:12 WBC Morphology Not Reportable 02/11/20 04:12 Hypersegmented Neuts Not Reportable 02/11/20 04:12 Hyposegmented Neuts Not Reportable 02/11/20 04:12 Hypogranular Neuts Not Reportable 02/11/20 04:12 Smudge Cells Not Reportable 02/11/20 04:12 Toxic Granulation Not Reportable 02/11/20 04:12 Toxic Vacuolation Not Reportable 02/11/20 04:12 Dohle Bodies Not Reportable 02/11/20 04:12 Pelger-Huet Anomaly Not Reportable 02/11/20 04:12 Lata Rods Not Reportable 02/11/20 04:12 Platelet Estimate Consistent w auto 02/11/20 04:12 Clumped Platelets Not Reportable 02/11/20 04:12 Plt Clumps, EDTA Not Reportable 02/11/20 04:12 Large Platelets Not Reportable 02/11/20 04:12 Giant Platelets Not Reportable 02/11/20 04:12 Platelet Satelliting Not Reportable 02/11/20 04:12 Plt Morphology Comment Not Reportable 02/11/20 04:12 RBC Morphology Not Reportable 02/11/20 04:12 Dimorphic RBCs Not Reportable 02/11/20 04:12 Polychromasia Not Reportable 02/11/20 04:12 Hypochromasia Not Reportable 02/11/20 04:12 Poikilocytosis Not Reportable 02/11/20 04:12 Anisocytosis 2+ 02/11/20 04:12 Microcytosis Not Reportable 02/11/20 04:12 Macrocytosis Few 02/11/20 04:12 Spherocytes Not Reportable 02/11/20 04:12 Pappenheimer Bodies Not Reportable 02/11/20 04:12 Sickle Cells Not Reportable 02/11/20 04:12 Target Cells Few 02/11/20 04:12 Tear Drop Cells Not Reportable 02/11/20 04:12 Ovalocytes Not Reportable 02/11/20 04:12 Helmet Cells Not Reportable 02/11/20 04:12 Lombardi-Suarez Bodies Not Reportable 02/11/20 04:12 Fields Rings Not Reportable 02/11/20 04:12 Flaxton Cells Not Reportable 02/11/20 04:12 Bite Cells Not Reportable 02/11/20 04:12 Crenated Cell Not Reportable 02/11/20 04:12 Elliptocytes Not Reportable 02/11/20 04:12 Acanthocytes (Spur) Not Reportable 02/11/20 04:12 Rouleaux Not Reportable 02/11/20 04:12 Hemoglobin C Crystals Not Reportable 02/11/20 04:12 Schistocytes Not Reportable 02/11/20 04:12 Malaria parasites Not Reportable 02/11/20 04:12 Gideon Bodies Not Reportable 02/11/20 04:12 Hem Pathologist Commnt No 02/11/20 04:12 APTT 33.9 Sec. (24.2-36.6) 01/26/20 16:30 PT 14.4 Sec. (12.2-14.9) 02/02/20 05:25 INR 1.11 (0.87-1.13) 02/02/20 05:25 Heparin Anti-Xa Level 0.74 U.I./ml (0.3-0.7) H 01/28/20 08:50 ABG pH 7.463 pH Units (7.350-7.450) H 02/13/20 04:30 POC ABG pCO2 38.5 mmHg (32.0-48.0) 02/11/20 03:43 ABG pCO2 39.6 mm Hg 02/13/20 04:30 POC ABG pO2 112.6 mmHg (83-108) H 02/11/20 03:43 ABG pO2 98.4 mm Hg (80.0-90.0) H 02/13/20 04:30 POC ABG HCO3 28 02/11/20 03:43 ABG HCO3 27.7 mmol/L (20.0-26.0) H 02/13/20 04:30 ABG O2 Saturation 97.7 % (95.0-99.0) 02/13/20 04:30 ABG O2 Content 19.3 (0.0-44) 02/13/20 04:30 POC ABG Base Excess 4.2 02/11/20 03:43 ABG Base Excess 3.7 mmol/L (-2.0-3.0) H 02/13/20 04:30 ABG Hemoglobin 14.4 gm/dl (12.0-16.0) 02/13/20 04:30 ABG Oxyhemoglobin 96.7 (94-98) 02/09/20 03:04 ABG Carboxyhemoglobin 1.8 % (0.0-5.0) 02/13/20 04:30 ABG Methemoglobin 0.6 % (0.0-1.5) 02/13/20 04:30 ABG Sodium 138.5 mmol/L (136.0-145.0) 02/11/20 03:43 ABG Potassium 3.4 mmol/L (3.40-4.50) 02/11/20 03:43 ABG Chloride 107.0 mmol/L (98-107) 02/11/20 03:43 ABG Glucose 154 mg/dL (65-95) H 02/11/20 03:43 Oxyhemoglobin 95.3 % (95.0-99.0) 02/13/20 04:30 Carboxyhemoglobin TNR 02/08/20 03:55 FiO2 25 % 02/13/20 04:30 Sodium 141 mmol/L (137-145) 02/18/20 04:43 Potassium 4.1 mmol/L (3.6-5.0) 02/18/20 04:43 Chloride 104.3 mmol/L (98-107) 02/18/20 04:43 Carbon Dioxide 24 mmol/L (22-30) D 02/18/20 04:43 Anion Gap 17 mmol/L 02/18/20 04:43 BUN 17 mg/dL (7-17) 02/18/20 04:43 Creatinine 0.3 mg/dL (0.6-1.2) L 02/18/20 04:43 Estimated GFR > 60 ml/min 02/18/20 04:43 BUN/Creatinine Ratio 57 % 02/18/20 04:43 Glucose 118 mg/dL (65-100) H 02/18/20 04:43 POC Glucose 159 (70-105) H 02/20/20 05:36 Hemoglobin A1c 5.3 % (4-6) 01/11/20 00:45 Lactic Acid 1.30 mmol/L (0.7-2.0) 01/26/20 23:27 Calcium 8.6 mg/dL (8.4-10.2) 02/18/20 04:43 Phosphorus 2.30 mg/dL (2.5-4.5) L 02/03/20 05:14 Magnesium 2.00 mg/dL (1.7-2.3) 02/16/20 05:09 Total Bilirubin 0.20 mg/dL (0.1-1.2) 02/13/20 04:45 AST 29 units/L (5-40) 02/13/20 04:45 ALT 38 units/L (7-56) 02/13/20 04:45 Alkaline Phosphatase 109 units/L (35-129) 02/13/20 04:45 C-Reactive Protein 14.80 mg/dL (0.00-1.30) H 01/29/20 Unknown Total Protein 4.2 g/dL (6.3-8.2) L 02/13/20 04:45 Albumin 2.0 g/dL (3.9-5) L 02/13/20 04:45 Albumin/Globulin Ratio 0.9 % 02/13/20 04:45 TSH 2.440 mlU/mL (0.270-4.200) 01/10/20 10:10 Procalcitonin 1.86 ng/mL (<0.15) 01/29/20 Unknown Arterial Blood Glucose 154 mg/dL (65-95) H 02/11/20 03:43 Arterial Blood Ionized Calcium 4.6 mg/dL (4.6-5.3) 02/11/20 03:43 Urine Color [place] (Yellow) 01/08/20 Unknown Urine Turbidity Cloudy (Clear) 01/08/20 Unknown Urine pH 5.0 (5.0-7.0) 01/08/20 Unknown Ur Specific Ursa 1.018 (1.003-1.030) 01/08/20 Unknown Urine Protein 30 mg/dl mg/dL (Negative) 01/08/20 Unknown Urine Glucose (UA) Neg mg/dL (Negative) 01/08/20 Unknown Urine Ketones Neg mg/dL (Negative) 01/08/20 Unknown Urine Blood Mod (Negative) 01/08/20 Unknown Urine Nitrite Neg (Negative) 01/08/20 Unknown Urine Bilirubin Neg (Negative) 01/08/20 Unknown Urine Urobilinogen < 2.0 mg/dL (<2.0) 01/08/20 Unknown Ur Leukocyte Esterase Sm (Negative) 01/08/20 Unknown Urine WBC (Auto) 11.0 /HPF (0.0-6.0) H 01/08/20 Unknown Urine RBC (Auto) 7.0 /HPF (0.0-6.0) 01/08/20 Unknown U Epithel Cells (Auto) < 1.0 /HPF (0-13.0) 01/08/20 Unknown Urine Bacteria (Auto) 1+ /HPF (Negative) 01/08/20 Unknown Urine Mucus 2+ /HPF 01/08/20 Unknown Urine Yeast (Budding) 1+ /HPF 01/08/20 Unknown Vancomycin Trough 7.9 ug/mL (5.0-20.0) 01/17/20 16:04 Coronavirus (PCR) Negative (Negative) 02/10/20 10:06 Blood Type A POSITIVE 02/11/20 08:22 Antibody Screen Negative 02/11/20 08:22 Crossmatch See Detail 02/11/20 08:22 Mejía/IV: Voiding Method Indwelling Catheter IV Catheter Type [Left Wrist] INT / Saline Lock IV Catheter Type [Left Upper PICC Line arm] IV Catheter Type [Right Upper Mid-line arm] IV Catheter Type [Right Peripheral IV Forearm] Active Medications - Current Medications Current Medications: Generic Name Dose Route Start Last Admin Trade Name Freq PRN Reason Stop Dose Admin Acetaminophen 650 mg 01/08/20 23:14 01/18/20 06:03 Tylenol PO 650 mg Q4H PRN Administration Pain MILD(1-3)/Fever >100.5/GARCIA Lipase/Protease/Amylase 1 each 01/17/20 08:37 Pancreaze 10,500 Unit FEEDTUBE PRN PRN For Clogged Feeding Tube Atorvastatin Calcium 10 mg 01/09/20 22:00 02/19/20 21:42 Atorvastatin PO 10 mg QHS BRO Administration Dextrose 0 ml 01/08/20 23:14 02/10/20 17:18 D50w (25gm) Syringe IV 10 ml Q30MIN PRN Administration Hypoglycemia Protocol Donepezil HCl 10 mg 01/09/20 22:00 02/19/20 21:42 Aricept PO 10 mg QHS BRO Administration Famotidine 20 mg 01/27/20 10:00 02/19/20 21:41 Pepcid PO 20 mg BID BRO Administration Ferrous Sulfate 308 mg 02/09/20 12:00 02/19/20 09:56 Ferrous Sulfate FEEDTUBE 308 mg DAILY BRO Administration Fluticasone Propionate 100 mcg 01/25/20 20:00 01/26/20 06:09 Flonase NS 100 mcg QDAY PRN Administration Nasal Congestion Glycopyrrolate 2 mg 02/18/20 22:00 02/19/20 21:41 Glycopyrrolate PO 2 mg BID [facility] Administration Heparin Sodium (Porcine) 5,000 unit 01/28/20 10:00 02/19/20 21:31 Heparin SUB-Q 5,000 unit Q12HR [facility] Administration Hydrophilic Ointment 1 applic 01/28/20 10:57 Vaseline Lip Therapy TP Q2HR PRN Dry Lips Piperacillin Sod/Tazobactam Sod 4.5 gm in 100 mls @ 200 mls/hr 01/19/20 14:00 02/20/20 06:37 Zosyn/Ns 4.5gm/100ml IV 02/27/20 22:29 Infused Q8HR [facility] Infusion Protocol Norepinephrine 4 mg in 250 mls @ 7.5 mls/hr 02/19/20 22:00 Levophed Drip 4 Mg/Ns 250 Ml IV TITR [facility] Protocol 2 MCG/MIN Insulin Human Regular 0 unit 01/27/20 12:00 02/20/20 06:37 Humulin R SUB-Q Not Given Q6HR [facility] Protocol Loperamide HCl 2 mg 02/14/20 12:00 02/14/20 16:48 Loperamide PO 2 mg Q2H PRN Administration Diarrhea Magnesium Hydroxide 30 ml 01/08/20 23:14 Milk Of Magnesia PO Q4H PRN Constipation Metoprolol Tartrate 12.5 mg 02/18/20 14:00 02/19/20 23:13 Metoprolol PO Not Given BID [facility] Mirtazapine 15 mg 01/09/20 22:00 02/19/20 21:42 Remeron PO 15 mg QHS [facility] Administration Multi-Ingred Cream/Lotion/Oil/Oint 1 applic 01/28/20 10:57 Artificial Tears Ophth Oint OU Q4HR PRN Dry Eye(s) Multivitamins 5 ml 02/09/20 12:00 02/19/20 09:56 Centrum Liq PO 5 ml QDAY [facility] Administration Ondansetron HCl 4 mg 01/08/20 23:14 Zofran IV Q8H PRN Nausea And Vomiting Oxycodone/Acetaminophen 1 tab 02/17/20 13:28 Percocet 5/325 PO Q4H PRN Pain, Moderate (4-6) Scopolamine 1 each 02/05/20 10:00 02/17/20 09:11 Transderm-Scop TD 1 each Q3D [facility]O Administration Simple Syrup 15 ml 01/17/20 08:37 Simple Syrup FEEDTUBE PRN PRN Hypoglycemia Simple Syrup 30 ml 01/17/20 08:37 02/11/20 23:43 Simple Syrup FEEDTUBE 30 ml PRN PRN Administration Hypoglycemia Sodium Bicarbonate 325 mg 01/17/20 08:37 Sodium Bicarbonate FEEDTUBE PRN PRN For Clogged Feeding Tube Sodium Chloride 10 ml 01/09/20 10:00 02/19/20 21:44 Sodium Chloride Flush Syringe 10 Ml IV 10 ml BID BRO Administration Sodium Chloride 10 ml 01/08/20 23:14 Sodium Chloride Flush Syringe 10 Ml IV PRN PRN LINE FLUSH Trazodone HCl 25 mg 01/09/20 22:00 02/19/20 23:12 Desyrel PO 25 mg QHS BRO Administration Nutrition/Malnutrition Assess - Dietary Evaluation Nutrition/Malnutrition Findings: Nutrition Notes Start: 01/09/20 12:13 Freq: Status: Active Protocol: Document 02/16/20 11:23 (Rec: 02/16/20 11:25 [id number]) Nutrition Notes Initial or Follow up Reassessment Current Diagnosis Decubitus(Pressure Ulcer), Diabetes,Sepsis Other Pertinent Diagnosis UTI, dementia, PE, Sacral wound Current Diet Vital AF 1.2 at 50ml/hr Labs/Tests BUN 18 Cr 0.3 Pertinent Medications Reviewed Height 5 ft 2 in Weight 72.8 kg Calvin Body Weight (kg) 50.00 BMI 29.3 Weight change and time frame Wt change noted. Pt has edema. Weight Status Overweight Subjective/Other Information FU for TF. TF running at goal and pt tolerating. Percent of energy/protein needs met: 91%/100% Burn Absent Trauma Absent GI Symptoms Diarrhea Current % PO Negligible Minimum of two criteria Yes Fluid Accumulation Moderate to Severe (severe) Reduced Window Glass Cutter Off Strength Measurably Reduced (severe) #3 Nutrition Diagnosis Malnutrition Diagnosis Progress(for reassessment Continues documentation) #2 Nutrition Diagnosis Inadequate oral intake Diagnosis Progress(for reassessment Continues documentation) #1 Nutrition Diagnosis Increased nutrient needs ( specify in comment below) Comments: protein Diagnosis Progress(for reassessment Continues documentation) Is patient on ventilator? Yes Is Patient Ambulatory and/or Out of Bed No REE-(Darke-St. Jeor-confined to bed) 1447.344 Kcal/Kg value to use for calculation 22 Approximate Energy Requirements Using 1602 kcal/Kg Calculation Used for Recommendations Kcal/kg Additional Notes Pro: 81-98 g (1.25-1.5 g/kg) Fluid: 1ml/kcal Nutrition Intervention Change Diet Order: Continue Nutrition Support: Vital AF 1.2 at 50ml/hr Flush 250ml q4h per MD Kcal 1,440 Protein (gm) 90 Fluid (mL) 973 Goal #1 Meet at least 80% of kcal and protein needs via TF Goal #2 TF tolerance Goal #3 Wound healing Anticipated Discharge Needs: TF Follow-Up By: 02/20/20 Additional Comments F/U for stable TF
[2020-02-20 08:48] LABS: Hematocrit 26.4 % (30.3-42.9); Hemoglobin 8.7 gm/dl (10.1-14.3); Mean Corpuscular HGB Conc 33 % (30-34); Mean Corpuscular Volume 96 fl (79-97); Red Blood Count 2.74 M/mm3 (3.65-5.03); Red Cell Distribution Width 19.4 % (13.2-15.2)
[2020-02-20 08:52] LABS: Blood Urea Nitrogen 17 mg/dL (7-17); Hemolysis Index 23
[2020-02-20 08:54] LABS: BUN/Creatinine Ratio 57
[2020-02-20 10:39] LABS: Total Cells Counted 100
[2020-02-20 10:40] LABS: Anisocytosis 1+; Large Platelets Few; Macrocytosis 1+; Platelet Clumps Rare; Platelet Estimate Consistent w Auto
[2020-02-20 10:47] LABS: Platelet Count 356 K/mm3 (140-440)
[2020-02-20] MEDS: MULTIVITAMINS 5 ML ORAL LIQUID PO SCH (11:29)
[2020-02-20] MEDS: FAMOTIDINE 20 MG TAB PO SCH ×2 (11:29→21:18)
[2020-02-20] MEDS: FERROUS SULFATE 308 MG (62mg Elemental Iron) / 7 ML ELIXIR FEEDTUBE SCH (11:30)
[2020-02-20] MEDS: GLYCOPYRROLATE 2 MG TAB PO SCH ×2 (11:30→21:19)
[2020-02-20] MEDS: HEPARIN 5,000 UNIT/1 ML VIAL SUB-Q SCH ×2 (11:30→21:20)
[2020-02-20] MEDS: SCOPOLAMINE TRANSDERMAL PATCH 72 HR TD SCH (11:32)
[2020-02-20] MEDS: METOPROLOL TARTRATE 25 MG TAB PO SCH ×2 (11:35→21:19)
--- NOTE | 2020-02-20 11:43 | Progress Note ---
Assessment and Plan Severe sepsis with shock. Left lung atelectasis. Left pleural effusion. Acute hypoxemic respiratory failure on MVS s/p Tracheostomy s/p Cardiopulamanry arrest with ROSC x2 Severe sepsis with shock Acute possibly on chronic encephalopathy. History of diabetes. Urinary tract infection. History of pulmonary embolism, diagnosed several months ago. Sacral decubitus ulcer. Dementia. Anemia Right cephalic vein superficial venous thrombosis Discussed with RT to trial her again later this afternoon on SBT (PSV/ATP) Monitor hemodynamics closely, her blood pressure remains soft -Trach care, airway clearance , secretion management -Analgesia per CPOT score -Continue with VTE prophylaxis -Keep potassium at 4, Mag at 2 and Phos at 2.5 to optimize respiratory muscle function -Supportive transfusions as indicated to keep HgB >7g/dL to help with wound healing -Optimize nutritional support -CXR, ABG as clinically indicated -CBC, BMP as clinically indicated -Discharge planning- discharge location will be determined by how well she tolerates weaning trials -VAP bundle addressed -Wean FIO2 for O2 sats >92% -Aspiration precautions, HOB >40 -Enteric nutritional support- has a PEG - continue bronchodilators with pulmonary hygiene per RT - continue accuchecks with glycemic control per SSI (While critically ill target blood glucose of 140-180 mg/dL; avoid hypoglycemia) - avoid nephrotoxins, renally dose all medications - continue to avoid benzodiazepines, reduce the possibility of delirium - complete antibiotics -on Zosyn for sacral osteomyelitis - prn analgesia per CPOT score - Maintenance of sleep-wake cycle, avoid delirium -VTE prophylaxis with Heparin - Stress ulcer prophylaxis with Famotidine - PT/OT/ROM exercises - continue mobility protocol, frequent turning and off loading to prevent further pressure ulcers -Wound care with wound vac - Monitor hemodynamics closely - continue other care per attending / other consultants Discussed with RT, RN, Clinical pharmacist and case management during ICU-IDT rounds CONDITION: CRITICAL PROGNOSIS: GUARDED CODE STATUS: FULL CODE The high probability of a clinically significant, sudden or life-threatening deterioration of the [respiratory, cardiovascular & neurologic] system(s) required my full and direct attention, intervention and personal management. The aggregate critical care time was [32] minutes without overlap. Time includes spent on; [x] Data Review and interpretation [x] Patient assessment and monitoring of vital signs [x] Documentation [x] Medication orders and management Subjective Date of service: 02/20/20 Principal diagnosis: Septic Shock; S/P Cardiac Arrest; Ac. hypoxemic resp failure; UTI Interval history: Patient is seen today for: PEA arrest with ROSC, trach to MVS; Severe sepsis with shock ; Acute hypoxemic respiratory failure; Acute possibly on chronic encephalopathy; DM II ; UTI ; VTE Seen and examined at bedside; 24hour events reviewed; nursing and respiratory care staff consulted; no adverse overnight events reported to me; resting peacefully in bed; No fevers, no vomiting. s/p trach , awake and alert but not obeying commands. Overnight events- was on ATP until 8pm at which time she desaturated with episode of hypotension. She was placed back on MVS and responded to NSaline bolus of 250ml On full support this morning- failed PSV trial this morning, she became apneic AC-VC 12/300/25%+6 Objective Vital Signs - 12hr 02/19/20 02/20/20 02/20/20 23:45 00:00 00:03 Temperature Pulse Rate 102 H 83 104 H Pulse Rate [ 99 H From Monitor] Respiratory 11 L 15 23 Rate Blood Pressure 99/63 111/51 111/51 O2 Sat by Pulse 100 100 100 Oximetry O2 Sat by Pulse Oximetry [ Assessment] 02/20/20 02/20/20 02/20/20 00:08 00:15 00:30 Temperature Pulse Rate 101 H 98 H 105 H Pulse Rate [ From Monitor] Respiratory 22 22 Rate Blood Pressure 111/51 120/65 113/65 O2 Sat by Pulse 100 100 100 Oximetry O2 Sat by Pulse Oximetry [ Assessment] 02/20/20 02/20/20 02/20/20 00:45 01:00 01:15 Temperature Pulse Rate 104 H 103 H 98 H Pulse Rate [ From Monitor] Respiratory 23 22 15 Rate Blood Pressure 105/66 108/63 118/61 O2 Sat by Pulse 100 100 100 Oximetry O2 Sat by Pulse 100 Oximetry [ Assessment] 02/20/20 02/20/20 02/20/20 01:30 01:45 02:00 Temperature Pulse Rate 73 63 63 Pulse Rate [ From Monitor] Respiratory 15 19 17 Rate Blood Pressure 115/52 109/49 102/46 O2 Sat by Pulse 100 100 100 Oximetry O2 Sat by Pulse Oximetry [ Assessment] 02/20/20 02/20/20 02/20/20 02:15 02:30 02:45 Temperature Pulse Rate 75 58 L 77 Pulse Rate [ From Monitor] Respiratory 12 16 16 Rate Blood Pressure 104/53 94/46 94/46 O2 Sat by Pulse 100 100 100 Oximetry O2 Sat by Pulse Oximetry [ Assessment] 02/20/20 02/20/20 02/20/20 03:00 03:15 03:22 Temperature 97.8 F Pulse Rate 69 89 Pulse Rate [ From Monitor] Respiratory 15 16 Rate Blood Pressure 112/54 120/54 O2 Sat by Pulse 100 100 Oximetry O2 Sat by Pulse Oximetry [ Assessment] 02/20/20 02/20/20 02/20/20 03:30 03:45 04:00 Temperature Pulse Rate 67 91 H 88 Pulse Rate [ 71 From Monitor] Respiratory 13 15 17 Rate Blood Pressure 125/52 126/55 133/63 O2 Sat by Pulse 100 99 100 Oximetry O2 Sat by Pulse Oximetry [ Assessment] 02/20/20 02/20/20 02/20/20 04:11 04:15 04:30 Temperature Pulse Rate 87 91 H 94 H Pulse Rate [ From Monitor] Respiratory 10 L 21 Rate Blood Pressure 133/63 111/60 120/60 O2 Sat by Pulse 100 100 100 Oximetry O2 Sat by Pulse Oximetry [ Assessment] 02/20/20 02/20/20 02/20/20 04:45 05:00 05:15 Temperature Pulse Rate 88 89 75 Pulse Rate [ From Monitor] Respiratory 13 17 19 Rate Blood Pressure 119/61 130/64 110/52 O2 Sat by Pulse 100 100 100 Oximetry O2 Sat by Pulse Oximetry [ Assessment] 02/20/20 02/20/20 02/20/20 05:30 05:45 06:00 Temperature Pulse Rate 79 58 L 67 Pulse Rate [ From Monitor] Respiratory 15 15 16 Rate Blood Pressure 118/53 109/48 107/48 O2 Sat by Pulse 100 100 100 Oximetry O2 Sat by Pulse Oximetry [ Assessment] 02/20/20 02/20/20 02/20/20 06:15 06:30 06:45 Temperature Pulse Rate 92 H 99 H 99 H Pulse Rate [ From Monitor] Respiratory 13 20 26 H Rate Blood Pressure 120/64 124/64 135/64 O2 Sat by Pulse 100 100 100 Oximetry O2 Sat by Pulse Oximetry [ Assessment] 02/20/20 02/20/20 02/20/20 07:00 07:15 07:30 Temperature Pulse Rate 98 H 99 H 93 H Pulse Rate [ From Monitor] Respiratory 22 24 22 Rate Blood Pressure 131/63 137/65 140/65 O2 Sat by Pulse 100 100 100 Oximetry O2 Sat by Pulse Oximetry [ Assessment] 02/20/20 02/20/20 02/20/20 07:45 08:00 08:15 Temperature Pulse Rate 96 H 80 97 H Pulse Rate [ 87 From Monitor] Respiratory 20 20 38 H Rate Blood Pressure 126/61 133/53 117/61 O2 Sat by Pulse 100 100 100 Oximetry O2 Sat by Pulse Oximetry [ Assessment] 02/20/20 02/20/20 02/20/20 08:28 08:30 08:37 Temperature Pulse Rate 101 H 99 H 86 Pulse Rate [ From Monitor] Respiratory 21 Rate Blood Pressure 119/59 119/59 119/59 O2 Sat by Pulse 100 100 100 Oximetry O2 Sat by Pulse Oximetry [ Assessment] 02/20/20 02/20/20 02/20/20 08:45 09:00 10:13 Temperature Pulse Rate 81 88 Pulse Rate [ From Monitor] Respiratory 20 23 Rate Blood Pressure 117/56 119/60 O2 Sat by Pulse 100 100 Oximetry O2 Sat by Pulse 100 Oximetry [ Assessment] 02/20/20 11:35 Temperature Pulse Rate 103 H Pulse Rate [ From Monitor] Respiratory Rate Blood Pressure 126/68 O2 Sat by Pulse Oximetry O2 Sat by Pulse Oximetry [ Assessment] Constitutional: no acute distress, alert, other (elderly chronically ill looking female trach to [facility]) Eyes: non-icteric ENT: oropharynx moist, other (trach) Neck: supple, no lymphadenopathy Effort: normal Ascultation: Bilateral: clear, diminished breath sounds, rales (bases predominant), rhonchi (scant) Percussion: Bilateral: not dull Cardiovascular: regular rate and rhythm, other (S1,S2) Gastrointestinal: normoactive bowel sounds, soft, non-tender, other (PEG in place) Integumentary: decubitus ulcer Extremities: no cyanosis, pulses normal, no ischemia or petechiae, edema, other (bilateral upper extremity edema) Neurologic: pupils equal and round, other (awake and alert, not obeying commands) Psychiatric: other (Unable to assess secondary to mental status) CBC and BMP: 02/20/20 08:24 02/20/20 08:24 ABG, PT/INR, D-dimer: ABG ABG pH 7.463 pH Units (7.350-7.450) H 02/13/20 04:30 POC ABG pCO2 38.5 mmHg (32.0-48.0) 02/11/20 03:43 ABG pCO2 39.6 mm Hg 02/13/20 04:30 POC ABG pO2 112.6 mmHg (83-108) H 02/11/20 03:43 ABG pO2 98.4 mm Hg (80.0-90.0) H 02/13/20 04:30 POC ABG HCO3 28 02/11/20 03:43 ABG O2 Saturation 97.7 % (95.0-99.0) 02/13/20 04:30 PT/INR, D-dimer PT 14.4 Sec. (12.2-14.9) 02/02/20 05:25 INR 1.11 (0.87-1.13) 02/02/20 05:25 Abnormal lab findings: Abnormal Labs 01/08/20 01/08/20 01/08/20 16:29 16:29 16:29 WBC 13.5 H RBC Hgb Hct MCHC RDW 15.5 H Plt Count MCH Lymph % (Auto) Lymph # Lymph # (Auto) Seg Neutrophils % Seg Neuts % (Manual) 85.0 H Lymphocytes % (Manual) 11.0 L Seg Neutrophils # Seg Neutrophils # Man 11.5 H Basophils % (Manual) Nucleated RBC % Lymphocytes # (Manual) Monocytes # (Manual) Basophils # (Manual) PT INR Heparin Anti-Xa Level POC ABG pO2 ABG pH ABG Hemoglobin ABG Oxyhemoglobin ABG pO2 ABG HCO3 ABG O2 Saturation ABG Base Excess ABG Potassium ABG Chloride ABG Glucose Oxyhemoglobin Sodium 161 H* Potassium Chloride 125.5 H Carbon Dioxide 20 L BUN 30 H Creatinine Glucose 115 H POC Glucose Lactic Acid 2.20 H* Calcium 7.9 L AST 48 H Phosphorus Total Protein Albumin 2.5 L C-Reactive Protein Arterial Blood Glucose Arterial Blood Ionized Calcium Urine WBC (Auto) Crossmatch 01/08/20 01/08/20 01/08/20 19:02 23:30 Unknown WBC RBC Hgb Hct MCHC RDW Plt Count MCH Lymph % (Auto) Lymph # Lymph # (Auto) Seg Neutrophils % Seg Neuts % (Manual) Lymphocytes % (Manual) Seg Neutrophils # Seg Neutrophils # Man Basophils % (Manual) Nucleated RBC % Lymphocytes # (Manual) Monocytes # (Manual) Basophils # (Manual) PT INR Heparin Anti-Xa Level POC ABG pO2 ABG pH ABG Hemoglobin ABG Oxyhemoglobin ABG pO2 ABG HCO3 ABG O2 Saturation ABG Base Excess ABG Potassium ABG Chloride ABG Glucose Oxyhemoglobin Sodium Potassium Chloride Carbon Dioxide BUN Creatinine Glucose POC Glucose Lactic Acid 2.10 H* 2.50 H* Calcium AST Phosphorus Total Protein Albumin C-Reactive Protein Arterial Blood Glucose Arterial Blood Ionized Calcium Urine WBC (Auto) 11.0 H Crossmatch 01/09/20 01/09/20 01/09/20 00:19 00:54 05:52 WBC 13.5 H RBC 3.02 L Hgb 9.0 L D Hct 27.4 L D MCHC RDW Plt Count MCH Lymph % (Auto) 9.1 L Lymph # Lymph # (Auto) Seg Neutrophils % 87.6 H Seg Neuts % (Manual) Lymphocytes % (Manual) Seg Neutrophils # 11.8 H Seg Neutrophils # Man Basophils % (Manual) Nucleated RBC % Lymphocytes # (Manual) Monocytes # (Manual) Basophils # (Manual) PT INR Heparin Anti-Xa Level POC ABG pO2 ABG pH ABG Hemoglobin ABG Oxyhemoglobin ABG pO2 ABG HCO3 ABG O2 Saturation ABG Base Excess ABG Potassium ABG Chloride ABG Glucose Oxyhemoglobin Sodium Potassium Chloride Carbon Dioxide BUN Creatinine Glucose POC Glucose 118 H 116 H Lactic Acid Calcium AST Phosphorus Total Protein Albumin C-Reactive Protein Arterial Blood Glucose Arterial Blood Ionized Calcium Urine WBC (Auto) Crossmatch 01/09/20 01/09/20 01/09/20 05:52 05:52 13:03 WBC RBC Hgb Hct MCHC RDW Plt Count MCH Lymph % (Auto) Lymph # Lymph # (Auto) Seg Neutrophils % Seg Neuts % (Manual) Lymphocytes % (Manual) Seg Neutrophils # Seg Neutrophils # Man Basophils % (Manual) Nucleated RBC % Lymphocytes # (Manual) Monocytes # (Manual) Basophils # (Manual) PT 17.1 H INR 1.36 H Heparin Anti-Xa Level POC ABG pO2 ABG pH ABG Hemoglobin ABG Oxyhemoglobin ABG pO2 ABG HCO3 ABG O2 Saturation ABG Base Excess ABG Potassium ABG Chloride ABG Glucose Oxyhemoglobin Sodium 162 H* Potassium 3.0 L D Chloride 128.3 H Carbon Dioxide BUN 23 H Creatinine Glucose POC Glucose 55 L Lactic Acid Calcium 7.6 L AST Phosphorus Total Protein Albumin C-Reactive Protein Arterial Blood Glucose Arterial Blood Ionized Calcium Urine WBC (Auto) Crossmatch 01/09/20 01/09/20 01/09/20 21:22 21:50 22:28 WBC RBC Hgb Hct MCHC RDW Plt Count MCH Lymph % (Auto) Lymph # Lymph # (Auto) Seg Neutrophils % Seg Neuts % (Manual) Lymphocytes % (Manual) Seg Neutrophils # Seg Neutrophils # Man Basophils % (Manual) Nucleated RBC % Lymphocytes # (Manual) Monocytes # (Manual) Basophils # (Manual) PT INR Heparin Anti-Xa Level POC ABG pO2 ABG pH ABG Hemoglobin ABG Oxyhemoglobin ABG pO2 ABG HCO3 ABG O2 Saturation ABG Base Excess ABG Potassium ABG Chloride ABG Glucose Oxyhemoglobin Sodium 159 H Potassium 5.1 H D Chloride 128.5 H Carbon Dioxide 16 L BUN 23 H Creatinine Glucose 51 L POC Glucose 52 L 106 H Lactic Acid Calcium 8.2 L AST Phosphorus Total Protein Albumin C-Reactive Protein Arterial Blood Glucose Arterial Blood Ionized Calcium Urine WBC (Auto) Crossmatch 01/10/20 01/10/20 01/10/20 05:23 09:11 10:10 WBC 13.4 H RBC Hgb Hct MCHC RDW Plt Count MCH Lymph % (Auto) 7.2 L Lymph # 1.0 L Lymph # (Auto) Seg Neutrophils % 90.0 H Seg Neuts % (Manual) Lymphocytes % (Manual) Seg Neutrophils # 12.0 H Seg Neutrophils # Man Basophils % (Manual) Nucleated RBC % Lymphocytes # (Manual) Monocytes # (Manual) Basophils # (Manual) PT INR Heparin Anti-Xa Level POC ABG pO2 ABG pH ABG Hemoglobin ABG Oxyhemoglobin ABG pO2 ABG HCO3 ABG O2 Saturation ABG Base Excess ABG Potassium ABG Chloride ABG Glucose Oxyhemoglobin Sodium 155 H Potassium Chloride 122.8 H Carbon Dioxide 21 L BUN 19 H Creatinine Glucose POC Glucose 120 H Lactic Acid Calcium AST Phosphorus Total Protein Albumin C-Reactive Protein Arterial Blood Glucose Arterial Blood Ionized Calcium Urine WBC (Auto) Crossmatch 01/10/20 01/10/20 01/10/20 11:47 11:57 17:09 WBC RBC Hgb Hct MCHC RDW Plt Count MCH Lymph % (Auto) Lymph # Lymph # (Auto) Seg Neutrophils % Seg Neuts % (Manual) Lymphocytes % (Manual) Seg Neutrophils # Seg Neutrophils # Man Basophils % (Manual) Nucleated RBC % Lymphocytes # (Manual) Monocytes # (Manual) Basophils # (Manual) PT INR Heparin Anti-Xa Level POC ABG pO2 ABG pH ABG Hemoglobin ABG Oxyhemoglobin ABG pO2 ABG HCO3 ABG O2 Saturation ABG Base Excess ABG Potassium ABG Chloride ABG Glucose Oxyhemoglobin Sodium 153 H Potassium Chloride 118.3 H Carbon Dioxide 20 L BUN 19 H Creatinine Glucose 113 H POC Glucose 142 H 125 H Lactic Acid Calcium AST Phosphorus Total Protein Albumin C-Reactive Protein Arterial Blood Glucose Arterial Blood Ionized Calcium Urine WBC (Auto) Crossmatch 01/10/20 01/10/20 01/11/20 20:27 22:00 00:45 WBC RBC Hgb Hct MCHC RDW Plt Count MCH Lymph % (Auto) Lymph # Lymph # (Auto) Seg Neutrophils % Seg Neuts % (Manual) Lymphocytes % (Manual) Seg Neutrophils # Seg Neutrophils # Man Basophils % (Manual) Nucleated RBC % Lymphocytes # (Manual) Monocytes # (Manual) Basophils # (Manual) PT INR Heparin Anti-Xa Level POC ABG pO2 ABG pH ABG Hemoglobin ABG Oxyhemoglobin ABG pO2 ABG HCO3 ABG O2 Saturation ABG Base Excess ABG Potassium ABG Chloride ABG Glucose Oxyhemoglobin Sodium 153 H 154 H Potassium 3.3 L 3.2 L Chloride 117.0 H 118.9 H Carbon Dioxide 20 L BUN Creatinine Glucose POC Glucose 136 H Lactic Acid Calcium 8.3 L 8.0 L AST Phosphorus Total Protein Albumin C-Reactive Protein Arterial Blood Glucose Arterial Blood Ionized Calcium Urine WBC (Auto) Crossmatch 01/11/20 01/11/20 01/11/20 07:06 08:03 11:54 WBC RBC Hgb Hct MCHC RDW Plt Count MCH Lymph % (Auto) Lymph # Lymph # (Auto) Seg Neutrophils % Seg Neuts % (Manual) Lymphocytes % (Manual) Seg Neutrophils # Seg Neutrophils # Man Basophils % (Manual) Nucleated RBC % Lymphocytes # (Manual) Monocytes # (Manual) Basophils # (Manual) PT INR Heparin Anti-Xa Level POC ABG pO2 ABG pH ABG Hemoglobin ABG Oxyhemoglobin ABG pO2 ABG HCO3 ABG O2 Saturation ABG Base Excess ABG Potassium ABG Chloride ABG Glucose Oxyhemoglobin Sodium 151 H Potassium Chloride 118.7 H Carbon Dioxide 21 L BUN Creatinine Glucose 107 H POC Glucose 118 H 164 H Lactic Acid Calcium 8.3 L AST Phosphorus Total Protein Albumin C-Reactive Protein Arterial Blood Glucose Arterial Blood Ionized Calcium Urine WBC (Auto) Crossmatch 01/11/20 01/12/20 01/12/20 16:28 00:19 05:40 WBC RBC Hgb Hct MCHC RDW Plt Count MCH Lymph % (Auto) Lymph # Lymph # (Auto) Seg Neutrophils % Seg Neuts % (Manual) Lymphocytes % (Manual) Seg Neutrophils # Seg Neutrophils # Man Basophils % (Manual) Nucleated RBC % Lymphocytes # (Manual) Monocytes # (Manual) Basophils # (Manual) PT INR Heparin Anti-Xa Level POC ABG pO2 ABG pH ABG Hemoglobin ABG Oxyhemoglobin ABG pO2 ABG HCO3 ABG O2 Saturation ABG Base Excess ABG Potassium ABG Chloride ABG Glucose Oxyhemoglobin Sodium 148 H Potassium Chloride 111.6 H Carbon Dioxide 19 L BUN Creatinine Glucose 128 H POC Glucose 132 H 179 H Lactic Acid Calcium 8.2 L AST Phosphorus Total Protein Albumin C-Reactive Protein Arterial Blood Glucose Arterial Blood Ionized Calcium Urine WBC (Auto) Crossmatch 01/12/20 01/12/20 01/12/20 06:17 11:37 17:21 WBC RBC Hgb Hct MCHC RDW Plt Count MCH Lymph % (Auto) Lymph # Lymph # (Auto) Seg Neutrophils % Seg Neuts % (Manual) Lymphocytes % (Manual) Seg Neutrophils # Seg Neutrophils # Man Basophils % (Manual) Nucleated RBC % Lymphocytes # (Manual) Monocytes # (Manual) Basophils # (Manual) PT INR Heparin Anti-Xa Level POC ABG pO2 ABG pH ABG Hemoglobin ABG Oxyhemoglobin ABG pO2 ABG HCO3 ABG O2 Saturation ABG Base Excess ABG Potassium ABG Chloride ABG Glucose Oxyhemoglobin Sodium Potassium Chloride Carbon Dioxide BUN Creatinine Glucose POC Glucose 140 H 142 H 133 H Lactic Acid Calcium AST Phosphorus Total Protein Albumin C-Reactive Protein Arterial Blood Glucose Arterial Blood Ionized Calcium Urine WBC (Auto) Crossmatch 01/12/20 01/13/20 01/13/20 23:14 05:26 07:00 WBC RBC Hgb Hct MCHC RDW Plt Count MCH Lymph % (Auto) Lymph # Lymph # (Auto) Seg Neutrophils % Seg Neuts % (Manual) Lymphocytes % (Manual) Seg Neutrophils # Seg Neutrophils # Man Basophils % (Manual) Nucleated RBC % Lymphocytes # (Manual) Monocytes # (Manual) Basophils # (Manual) PT INR Heparin Anti-Xa Level POC ABG pO2 ABG pH ABG Hemoglobin ABG Oxyhemoglobin ABG pO2 ABG HCO3 ABG O2 Saturation ABG Base Excess ABG Potassium ABG Chloride ABG Glucose Oxyhemoglobin Sodium Potassium Chloride 110.0 H Carbon Dioxide BUN Creatinine Glucose 139 H POC Glucose 135 H 162 H Lactic Acid Calcium 7.8 L AST Phosphorus Total Protein Albumin C-Reactive Protein Arterial Blood Glucose Arterial Blood Ionized Calcium Urine WBC (Auto) Crossmatch 01/13/20 01/13/20 01/13/20 12:14 17:52 21:40 WBC RBC Hgb Hct MCHC RDW Plt Count MCH Lymph % (Auto) Lymph # Lymph # (Auto) Seg Neutrophils % Seg Neuts % (Manual) Lymphocytes % (Manual) Seg Neutrophils # Seg Neutrophils # Man Basophils % (Manual) Nucleated RBC % Lymphocytes # (Manual) Monocytes # (Manual) Basophils # (Manual) PT INR Heparin Anti-Xa Level POC ABG pO2 ABG pH ABG Hemoglobin ABG Oxyhemoglobin ABG pO2 ABG HCO3 ABG O2 Saturation ABG Base Excess ABG Potassium ABG Chloride ABG Glucose Oxyhemoglobin Sodium Potassium Chloride Carbon Dioxide BUN Creatinine Glucose POC Glucose 205 H 172 H 186 H Lactic Acid Calcium AST Phosphorus Total Protein Albumin C-Reactive Protein Arterial Blood Glucose Arterial Blood Ionized Calcium Urine WBC (Auto) Crossmatch 01/14/20 01/14/20 01/14/20 04:28 11:01 11:01 WBC 14.8 H RBC 3.20 L Hgb 9.5 L Hct 28.0 L MCHC RDW Plt Count MCH Lymph % (Auto) Lymph # Lymph # (Auto) Seg Neutrophils % Seg Neuts % (Manual) Lymphocytes % (Manual) Seg Neutrophils # Seg Neutrophils # Man Basophils % (Manual) Nucleated RBC % Lymphocytes # (Manual) Monocytes # (Manual) Basophils # (Manual) PT INR Heparin Anti-Xa Level POC ABG pO2 ABG pH ABG Hemoglobin ABG Oxyhemoglobin ABG pO2 ABG HCO3 ABG O2 Saturation ABG Base Excess ABG Potassium ABG Chloride ABG Glucose Oxyhemoglobin Sodium Potassium 3.2 L Chloride Carbon Dioxide BUN Creatinine 0.4 L Glucose POC Glucose 115 H Lactic Acid Calcium 8.0 L AST Phosphorus Total Protein Albumin C-Reactive Protein Arterial Blood Glucose Arterial Blood Ionized Calcium Urine WBC (Auto) Crossmatch 01/14/20 01/14/20 01/14/20 11:01 16:33 22:32 WBC RBC Hgb Hct MCHC RDW Plt Count MCH Lymph % (Auto) Lymph # Lymph # (Auto) Seg Neutrophils % Seg Neuts % (Manual) Lymphocytes % (Manual) Seg Neutrophils # Seg Neutrophils # Man Basophils % (Manual) Nucleated RBC % Lymphocytes # (Manual) Monocytes # (Manual) Basophils # (Manual) PT 15.8 H INR 1.23 H Heparin Anti-Xa Level POC ABG pO2 ABG pH ABG Hemoglobin ABG Oxyhemoglobin ABG pO2 ABG HCO3 ABG O2 Saturation ABG Base Excess ABG Potassium ABG Chloride ABG Glucose Oxyhemoglobin Sodium Potassium Chloride Carbon Dioxide BUN Creatinine Glucose POC Glucose 58 L 188 H Lactic Acid Calcium AST Phosphorus Total Protein Albumin C-Reactive Protein Arterial Blood Glucose Arterial Blood Ionized Calcium Urine WBC (Auto) Crossmatch 01/15/20 01/15/20 01/15/20 05:35 06:19 17:17 WBC RBC Hgb Hct MCHC RDW Plt Count MCH Lymph % (Auto) Lymph # Lymph # (Auto) Seg Neutrophils % Seg Neuts % (Manual) Lymphocytes % (Manual) Seg Neutrophils # Seg Neutrophils # Man Basophils % (Manual) Nucleated RBC % Lymphocytes # (Manual) Monocytes # (Manual) Basophils # (Manual) PT INR Heparin Anti-Xa Level POC ABG pO2 ABG pH ABG Hemoglobin ABG Oxyhemoglobin ABG pO2 ABG HCO3 ABG O2 Saturation ABG Base Excess ABG Potassium ABG Chloride ABG Glucose Oxyhemoglobin Sodium Potassium Chloride Carbon Dioxide BUN Creatinine 0.5 L Glucose 104 H POC Glucose 106 H 183 H Lactic Acid Calcium 7.8 L AST Phosphorus Total Protein Albumin C-Reactive Protein Arterial Blood Glucose Arterial Blood Ionized Calcium Urine WBC (Auto) Crossmatch 01/15/20 01/16/20 01/16/20 22:29 05:35 05:59 WBC 14.7 H RBC 3.04 L Hgb 9.0 L Hct 27.0 L MCHC RDW Plt Count MCH Lymph % (Auto) 9.1 L Lymph # Lymph # (Auto) Seg Neutrophils % 87.3 H Seg Neuts % (Manual) Lymphocytes % (Manual) Seg Neutrophils # 12.9 H Seg Neutrophils # Man Basophils % (Manual) Nucleated RBC % Lymphocytes # (Manual) Monocytes # (Manual) Basophils # (Manual) PT INR Heparin Anti-Xa Level POC ABG pO2 ABG pH ABG Hemoglobin ABG Oxyhemoglobin ABG pO2 ABG HCO3 ABG O2 Saturation ABG Base Excess ABG Potassium ABG Chloride ABG Glucose Oxyhemoglobin Sodium Potassium Chloride Carbon Dioxide BUN Creatinine Glucose POC Glucose 228 H 130 H Lactic Acid Calcium AST Phosphorus Total Protein Albumin C-Reactive Protein Arterial Blood Glucose Arterial Blood Ionized Calcium Urine WBC (Auto) Crossmatch 01/16/20 01/16/20 01/16/20 09:52 12:49 17:30 WBC RBC Hgb Hct MCHC RDW Plt Count MCH Lymph % (Auto) Lymph # Lymph # (Auto) Seg Neutrophils % Seg Neuts % (Manual) Lymphocytes % (Manual) Seg Neutrophils # Seg Neutrophils # Man Basophils % (Manual) Nucleated RBC % Lymphocytes # (Manual) Monocytes # (Manual) Basophils # (Manual) PT INR Heparin Anti-Xa Level POC ABG pO2 ABG pH ABG Hemoglobin ABG Oxyhemoglobin ABG pO2 ABG HCO3 ABG O2 Saturation ABG Base Excess ABG Potassium ABG Chloride ABG Glucose Oxyhemoglobin Sodium Potassium Chloride Carbon Dioxide BUN Creatinine Glucose POC Glucose 122 H 142 H 192 H Lactic Acid Calcium AST Phosphorus Total Protein Albumin C-Reactive Protein Arterial Blood Glucose Arterial Blood Ionized Calcium Urine WBC (Auto) Crossmatch 01/16/20 01/17/20 01/17/20 23:01 08:36 08:36 WBC 12.7 H RBC 2.98 L Hgb 8.9 L Hct 26.4 L MCHC RDW Plt Count MCH Lymph % (Auto) 8.8 L Lymph # 1.1 L Lymph # (Auto) Seg Neutrophils % 86.7 H Seg Neuts % (Manual) Lymphocytes % (Manual) Seg Neutrophils # 11.0 H Seg Neutrophils # Man Basophils % (Manual) Nucleated RBC % Lymphocytes # (Manual) Monocytes # (Manual) Basophils # (Manual) PT INR Heparin Anti-Xa Level POC ABG pO2 ABG pH ABG Hemoglobin ABG Oxyhemoglobin ABG pO2 ABG HCO3 ABG O2 Saturation ABG Base Excess ABG Potassium ABG Chloride ABG Glucose Oxyhemoglobin Sodium Potassium 3.3 L D Chloride Carbon Dioxide BUN Creatinine 0.4 L Glucose POC Glucose 141 H Lactic Acid Calcium 8.1 L AST Phosphorus Total Protein 4.6 L Albumin 1.6 L C-Reactive Protein Arterial Blood Glucose Arterial Blood Ionized Calcium Urine WBC (Auto) Crossmatch 01/17/20 01/17/20 01/18/20 11:43 23:56 06:27 WBC RBC Hgb Hct MCHC RDW Plt Count MCH Lymph % (Auto) Lymph # Lymph # (Auto) Seg Neutrophils % Seg Neuts % (Manual) Lymphocytes % (Manual) Seg Neutrophils # Seg Neutrophils # Man Basophils % (Manual) Nucleated RBC % Lymphocytes # (Manual) Monocytes # (Manual) Basophils # (Manual) PT INR Heparin Anti-Xa Level POC ABG pO2 ABG pH ABG Hemoglobin ABG Oxyhemoglobin ABG pO2 ABG HCO3 ABG O2 Saturation ABG Base Excess ABG Potassium ABG Chloride ABG Glucose Oxyhemoglobin Sodium Potassium Chloride Carbon Dioxide BUN Creatinine Glucose POC Glucose 137 H 215 H 122 H Lactic Acid Calcium AST Phosphorus Total Protein Albumin C-Reactive Protein Arterial Blood Glucose Arterial Blood Ionized Calcium Urine WBC (Auto) Crossmatch 01/18/20 01/18/20 01/18/20 07:31 07:31 11:39 WBC 12.1 H RBC 3.23 L Hgb 9.7 L Hct 28.7 L MCHC RDW Plt Count MCH Lymph % (Auto) 9.2 L Lymph # 1.1 L Lymph # (Auto) Seg Neutrophils % 85.0 H Seg Neuts % (Manual) Lymphocytes % (Manual) Seg Neutrophils # 10.3 H Seg Neutrophils # Man Basophils % (Manual) Nucleated RBC % Lymphocytes # (Manual) Monocytes # (Manual) Basophils # (Manual) PT INR Heparin Anti-Xa Level POC ABG pO2 ABG pH ABG Hemoglobin ABG Oxyhemoglobin ABG pO2 ABG HCO3 ABG O2 Saturation ABG Base Excess ABG Potassium ABG Chloride ABG Glucose Oxyhemoglobin Sodium Potassium Chloride Carbon Dioxide BUN Creatinine 0.4 L Glucose 108 H POC Glucose 172 H Lactic Acid Calcium AST Phosphorus Total Protein 5.3 L Albumin 2.1 L C-Reactive Protein Arterial Blood Glucose Arterial Blood Ionized Calcium Urine WBC (Auto) Crossmatch 01/18/20 01/19/20 01/19/20 18:22 00:15 11:30 WBC RBC Hgb Hct MCHC RDW Plt Count MCH Lymph % (Auto) Lymph # Lymph # (Auto) Seg Neutrophils % Seg Neuts % (Manual) Lymphocytes % (Manual) Seg Neutrophils # Seg Neutrophils # Man Basophils % (Manual) Nucleated RBC % Lymphocytes # (Manual) Monocytes # (Manual) Basophils # (Manual) PT INR Heparin Anti-Xa Level POC ABG pO2 ABG pH ABG Hemoglobin ABG Oxyhemoglobin ABG pO2 ABG HCO3 ABG O2 Saturation ABG Base Excess ABG Potassium ABG Chloride ABG Glucose Oxyhemoglobin Sodium Potassium Chloride Carbon Dioxide BUN Creatinine Glucose POC Glucose 119 H 135 H 163 H Lactic Acid Calcium AST Phosphorus Total Protein Albumin C-Reactive Protein Arterial Blood Glucose Arterial Blood Ionized Calcium Urine WBC (Auto) Crossmatch 01/19/20 01/19/20 01/20/20 17:44 22:59 03:44 WBC 11.1 H RBC 2.77 L Hgb 8.4 L Hct 25.0 L MCHC RDW Plt Count MCH Lymph % (Auto) Lymph # Lymph # (Auto) Seg Neutrophils % 74.6 H Seg Neuts % (Manual) Lymphocytes % (Manual) Seg Neutrophils # 8.3 H Seg Neutrophils # Man Basophils % (Manual) Nucleated RBC % Lymphocytes # (Manual) Monocytes # (Manual) Basophils # (Manual) PT INR Heparin Anti-Xa Level POC ABG pO2 ABG pH ABG Hemoglobin ABG Oxyhemoglobin ABG pO2 ABG HCO3 ABG O2 Saturation ABG Base Excess ABG Potassium ABG Chloride ABG Glucose Oxyhemoglobin Sodium Potassium Chloride Carbon Dioxide BUN Creatinine Glucose POC Glucose 161 H 182 H Lactic Acid Calcium AST Phosphorus Total Protein Albumin C-Reactive Protein Arterial Blood Glucose Arterial Blood Ionized Calcium Urine WBC (Auto) Crossmatch 01/20/20 01/21/20 01/21/20 03:44 00:07 05:51 WBC RBC 2.84 L Hgb 8.6 L Hct 25.5 L MCHC RDW Plt Count 463 H MCH Lymph % (Auto) Lymph # Lymph # (Auto) Seg Neutrophils % 76.9 H Seg Neuts % (Manual) Lymphocytes % (Manual) Seg Neutrophils # 7.8 H Seg Neutrophils # Man Basophils % (Manual) Nucleated RBC % Lymphocytes # (Manual) Monocytes # (Manual) Basophils # (Manual) PT INR Heparin Anti-Xa Level POC ABG pO2 ABG pH ABG Hemoglobin ABG Oxyhemoglobin ABG pO2 ABG HCO3 ABG O2 Saturation ABG Base Excess ABG Potassium ABG Chloride ABG Glucose Oxyhemoglobin Sodium Potassium Chloride Carbon Dioxide BUN Creatinine 0.4 L Glucose POC Glucose 68 L Lactic Acid Calcium 7.9 L AST Phosphorus Total Protein 4.7 L Albumin 1.9 L C-Reactive Protein Arterial Blood Glucose Arterial Blood Ionized Calcium Urine WBC (Auto) Crossmatch 01/21/20 01/21/20 01/21/20 05:51 05:58 11:25 WBC RBC Hgb Hct MCHC RDW Plt Count MCH Lymph % (Auto) Lymph # Lymph # (Auto) Seg Neutrophils % Seg Neuts % (Manual) Lymphocytes % (Manual) Seg Neutrophils # Seg Neutrophils # Man Basophils % (Manual) Nucleated RBC % Lymphocytes # (Manual) Monocytes # (Manual) Basophils # (Manual) PT INR Heparin Anti-Xa Level POC ABG pO2 ABG pH ABG Hemoglobin ABG Oxyhemoglobin ABG pO2 ABG HCO3 ABG O2 Saturation ABG Base Excess ABG Potassium ABG Chloride ABG Glucose Oxyhemoglobin Sodium Potassium Chloride Carbon Dioxide 20 L BUN Creatinine 0.5 L Glucose 130 H POC Glucose 185 H 163 H Lactic Acid Calcium 7.6 L AST Phosphorus Total Protein 5.0 L Albumin 1.9 L C-Reactive Protein Arterial Blood Glucose Arterial Blood Ionized Calcium Urine WBC (Auto) Crossmatch 01/21/20 01/21/20 01/22/20 16:22 21:17 01:28 WBC RBC 2.60 L Hgb 8.0 L Hct 23.3 L MCHC RDW Plt Count MCH Lymph % (Auto) Lymph # Lymph # (Auto) Seg Neutrophils % 74.8 H Seg Neuts % (Manual) Lymphocytes % (Manual) Seg Neutrophils # Seg Neutrophils # Man Basophils % (Manual) Nucleated RBC % Lymphocytes # (Manual) Monocytes # (Manual) Basophils # (Manual) PT INR Heparin Anti-Xa Level POC ABG pO2 ABG pH ABG Hemoglobin ABG Oxyhemoglobin ABG pO2 ABG HCO3 ABG O2 Saturation ABG Base Excess ABG Potassium ABG Chloride ABG Glucose Oxyhemoglobin Sodium Potassium Chloride Carbon Dioxide BUN Creatinine Glucose POC Glucose 177 H 67 L Lactic Acid Calcium AST Phosphorus Total Protein Albumin C-Reactive Protein Arterial Blood Glucose Arterial Blood Ionized Calcium Urine WBC (Auto) Crossmatch 01/22/20 01/22/20 01/22/20 01:28 01:28 12:06 WBC RBC Hgb Hct MCHC RDW Plt Count MCH Lymph % (Auto) Lymph # Lymph # (Auto) Seg Neutrophils % Seg Neuts % (Manual) Lymphocytes % (Manual) Seg Neutrophils # Seg Neutrophils # Man Basophils % (Manual) Nucleated RBC % Lymphocytes # (Manual) Monocytes # (Manual) Basophils # (Manual) PT INR Heparin Anti-Xa Level POC ABG pO2 ABG pH ABG Hemoglobin ABG Oxyhemoglobin ABG pO2 ABG HCO3 ABG O2 Saturation ABG Base Excess ABG Potassium ABG Chloride ABG Glucose Oxyhemoglobin Sodium Potassium Chloride 107.6 H Carbon Dioxide BUN Creatinine 0.4 L Glucose 152 H POC Glucose 203 H 140 H Lactic Acid Calcium 7.5 L AST Phosphorus Total Protein 4.0 L Albumin 2.0 L C-Reactive Protein Arterial Blood Glucose Arterial Blood Ionized Calcium Urine WBC (Auto) Crossmatch 01/22/20 01/22/20 01/23/20 16:24 22:55 06:10 WBC RBC 2.68 L Hgb 8.6 L Hct 24.1 L MCHC 36 H RDW Plt Count MCH Lymph % (Auto) Lymph # Lymph # (Auto) Seg Neutrophils % Seg Neuts % (Manual) 71.0 H Lymphocytes % (Manual) Seg Neutrophils # Seg Neutrophils # Man Basophils % (Manual) Nucleated RBC % Lymphocytes # (Manual) Monocytes # (Manual) Basophils # (Manual) PT INR Heparin Anti-Xa Level POC ABG pO2 ABG pH ABG Hemoglobin ABG Oxyhemoglobin ABG pO2 ABG HCO3 ABG O2 Saturation ABG Base Excess ABG Potassium ABG Chloride ABG Glucose Oxyhemoglobin Sodium Potassium Chloride Carbon Dioxide BUN Creatinine Glucose POC Glucose 205 H 196 H Lactic Acid Calcium AST Phosphorus Total Protein Albumin C-Reactive Protein Arterial Blood Glucose Arterial Blood Ionized Calcium Urine WBC (Auto) Crossmatch 01/23/20 01/23/20 01/23/20 06:10 07:35 11:59 WBC RBC Hgb Hct MCHC RDW Plt Count MCH Lymph % (Auto) Lymph # Lymph # (Auto) Seg Neutrophils % Seg Neuts % (Manual) Lymphocytes % (Manual) Seg Neutrophils # Seg Neutrophils # Man Basophils % (Manual) Nucleated RBC % Lymphocytes # (Manual) Monocytes # (Manual) Basophils # (Manual) PT INR Heparin Anti-Xa Level POC ABG pO2 ABG pH ABG Hemoglobin ABG Oxyhemoglobin ABG pO2 ABG HCO3 ABG O2 Saturation ABG Base Excess ABG Potassium ABG Chloride ABG Glucose Oxyhemoglobin Sodium Potassium Chloride 108.8 H Carbon Dioxide BUN Creatinine 0.4 L Glucose 105 H POC Glucose 111 H 123 H Lactic Acid Calcium 8.0 L AST Phosphorus Total Protein 4.9 L D Albumin 2.0 L C-Reactive Protein Arterial Blood Glucose Arterial Blood Ionized Calcium Urine WBC (Auto) Crossmatch 01/23/20 01/24/20 01/24/20 22:45 11:24 16:41 WBC RBC Hgb Hct MCHC RDW Plt Count MCH Lymph % (Auto) Lymph # Lymph # (Auto) Seg Neutrophils % Seg Neuts % (Manual) Lymphocytes % (Manual) Seg Neutrophils # Seg Neutrophils # Man Basophils % (Manual) Nucleated RBC % Lymphocytes # (Manual) Monocytes # (Manual) Basophils # (Manual) PT INR Heparin Anti-Xa Level POC ABG pO2 ABG pH ABG Hemoglobin ABG Oxyhemoglobin ABG pO2 ABG HCO3 ABG O2 Saturation ABG Base Excess ABG Potassium ABG Chloride ABG Glucose Oxyhemoglobin Sodium Potassium Chloride Carbon Dioxide BUN Creatinine Glucose POC Glucose 180 H 182 H 177 H Lactic Acid Calcium AST Phosphorus Total Protein Albumin C-Reactive Protein Arterial Blood Glucose Arterial Blood Ionized Calcium Urine WBC (Auto) Crossmatch 01/24/20 01/25/20 01/25/20 23:11 07:12 11:35 WBC RBC Hgb Hct MCHC RDW Plt Count MCH Lymph % (Auto) Lymph # Lymph # (Auto) Seg Neutrophils % Seg Neuts % (Manual) Lymphocytes % (Manual) Seg Neutrophils # Seg Neutrophils # Man Basophils % (Manual) Nucleated RBC % Lymphocytes # (Manual) Monocytes # (Manual) Basophils # (Manual) PT INR Heparin Anti-Xa Level POC ABG pO2 ABG pH ABG Hemoglobin ABG Oxyhemoglobin ABG pO2 ABG HCO3 ABG O2 Saturation ABG Base Excess ABG Potassium ABG Chloride ABG Glucose Oxyhemoglobin Sodium Potassium Chloride Carbon Dioxide BUN Creatinine Glucose POC Glucose 142 H 135 H 142 H Lactic Acid Calcium AST Phosphorus Total Protein Albumin C-Reactive Protein Arterial Blood Glucose Arterial Blood Ionized Calcium Urine WBC (Auto) Crossmatch 01/25/20 01/26/20 01/26/20 16:33 00:04 11:35 WBC RBC Hgb Hct MCHC RDW Plt Count MCH Lymph % (Auto) Lymph # Lymph # (Auto) Seg Neutrophils % Seg Neuts % (Manual) Lymphocytes % (Manual) Seg Neutrophils # Seg Neutrophils # Man Basophils % (Manual) Nucleated RBC % Lymphocytes # (Manual) Monocytes # (Manual) Basophils # (Manual) PT INR Heparin Anti-Xa Level POC ABG pO2 ABG pH ABG Hemoglobin ABG Oxyhemoglobin ABG pO2 ABG HCO3 ABG O2 Saturation ABG Base Excess ABG Potassium ABG Chloride ABG Glucose Oxyhemoglobin Sodium Potassium Chloride Carbon Dioxide BUN Creatinine Glucose POC Glucose 247 H 233 H 200 H Lactic Acid Calcium AST Phosphorus Total Protein Albumin C-Reactive Protein Arterial Blood Glucose Arterial Blood Ionized Calcium Urine WBC (Auto) Crossmatch 01/26/20 01/26/20 01/26/20 16:30 16:30 17:19 WBC RBC Hgb 7.4 L Hct 22.0 L MCHC RDW Plt Count MCH Lymph % (Auto) Lymph # Lymph # (Auto) Seg Neutrophils % Seg Neuts % (Manual) Lymphocytes % (Manual) Seg Neutrophils # Seg Neutrophils # Man Basophils % (Manual) Nucleated RBC % Lymphocytes # (Manual) Monocytes # (Manual) Basophils # (Manual) PT 18.4 H INR 1.50 H Heparin Anti-Xa Level POC ABG pO2 ABG pH ABG Hemoglobin ABG Oxyhemoglobin ABG pO2 ABG HCO3 ABG O2 Saturation ABG Base Excess ABG Potassium ABG Chloride ABG Glucose Oxyhemoglobin Sodium Potassium Chloride Carbon Dioxide BUN Creatinine Glucose POC Glucose 67 L Lactic Acid Calcium AST Phosphorus Total Protein Albumin C-Reactive Protein Arterial Blood Glucose Arterial Blood Ionized Calcium Urine WBC (Auto) Crossmatch 01/26/20 01/26/20 01/27/20 20:24 21:32 00:16 WBC RBC Hgb Hct MCHC RDW Plt Count MCH Lymph % (Auto) Lymph # Lymph # (Auto) Seg Neutrophils % Seg Neuts % (Manual) Lymphocytes % (Manual) Seg Neutrophils # Seg Neutrophils # Man Basophils % (Manual) Nucleated RBC % Lymphocytes # (Manual) Monocytes # (Manual) Basophils # (Manual) PT INR Heparin Anti-Xa Level POC ABG pO2 51.8 L ABG pH ABG Hemoglobin 8.5 L ABG Oxyhemoglobin 84.7 L ABG pO2 ABG HCO3 ABG O2 Saturation ABG Base Excess ABG Potassium ABG Chloride ABG Glucose Oxyhemoglobin Sodium Potassium Chloride Carbon Dioxide BUN Creatinine Glucose POC Glucose 162 H 141 H Lactic Acid Calcium AST Phosphorus Total Protein Albumin C-Reactive Protein Arterial Blood Glucose Arterial Blood Ionized Calcium Urine WBC (Auto) Crossmatch 01/27/20 01/27/20 01/27/20 01:42 02:18 05:57 WBC RBC Hgb Hct MCHC RDW Plt Count MCH Lymph % (Auto) Lymph # Lymph # (Auto) Seg Neutrophils % Seg Neuts % (Manual) Lymphocytes % (Manual) Seg Neutrophils # Seg Neutrophils # Man Basophils % (Manual) Nucleated RBC % Lymphocytes # (Manual) Monocytes # (Manual) Basophils # (Manual) PT INR Heparin Anti-Xa Level 2.00 H POC ABG pO2 ABG pH ABG Hemoglobin ABG Oxyhemoglobin ABG pO2 ABG HCO3 ABG O2 Saturation ABG Base Excess ABG Potassium ABG Chloride ABG Glucose Oxyhemoglobin Sodium Potassium Chloride Carbon Dioxide BUN Creatinine Glucose POC Glucose 183 H 124 H Lactic Acid Calcium AST Phosphorus Total Protein Albumin C-Reactive Protein Arterial Blood Glucose Arterial Blood Ionized Calcium Urine WBC (Auto) Crossmatch 01/27/20 01/27/20 01/27/20 06:30 06:30 12:23 WBC RBC 2.75 L Hgb 8.4 L Hct 24.9 L MCHC RDW 16.0 H Plt Count 474 H MCH Lymph % (Auto) 12.7 L Lymph # Lymph # (Auto) Seg Neutrophils % 83.2 H Seg Neuts % (Manual) Lymphocytes % (Manual) Seg Neutrophils # 8.4 H Seg Neutrophils # Man Basophils % (Manual) Nucleated RBC % Lymphocytes # (Manual) Monocytes # (Manual) Basophils # (Manual) PT INR Heparin Anti-Xa Level POC ABG pO2 ABG pH ABG Hemoglobin ABG Oxyhemoglobin ABG pO2 ABG HCO3 ABG O2 Saturation ABG Base Excess ABG Potassium ABG Chloride ABG Glucose Oxyhemoglobin Sodium Potassium 3.5 L Chloride 110.2 H Carbon Dioxide BUN Creatinine 0.4 L Glucose 101 H POC Glucose 126 H Lactic Acid Calcium 7.8 L AST Phosphorus Total Protein Albumin C-Reactive Protein Arterial Blood Glucose Arterial Blood Ionized Calcium Urine WBC (Auto) Crossmatch 01/27/20 01/27/20 01/28/20 17:31 23:40 00:00 WBC RBC Hgb Hct MCHC RDW Plt Count MCH Lymph % (Auto) Lymph # Lymph # (Auto) Seg Neutrophils % Seg Neuts % (Manual) Lymphocytes % (Manual) Seg Neutrophils # Seg Neutrophils # Man Basophils % (Manual) Nucleated RBC % Lymphocytes # (Manual) Monocytes # (Manual) Basophils # (Manual) PT INR Heparin Anti-Xa Level 2.00 H POC ABG pO2 ABG pH ABG Hemoglobin ABG Oxyhemoglobin ABG pO2 ABG HCO3 ABG O2 Saturation ABG Base Excess ABG Potassium ABG Chloride ABG Glucose Oxyhemoglobin Sodium Potassium Chloride Carbon Dioxide BUN Creatinine Glucose POC Glucose 133 H 136 H Lactic Acid Calcium AST Phosphorus Total Protein Albumin C-Reactive Protein Arterial Blood Glucose Arterial Blood Ionized Calcium Urine WBC (Auto) Crossmatch 01/28/20 01/28/20 01/28/20 04:26 04:26 05:35 WBC RBC Hgb 9.6 L Hct 28.5 L MCHC RDW Plt Count 508 H MCH Lymph % (Auto) Lymph # Lymph # (Auto) Seg Neutrophils % Seg Neuts % (Manual) Lymphocytes % (Manual) Seg Neutrophils # Seg Neutrophils # Man Basophils % (Manual) Nucleated RBC % Lymphocytes # (Manual) Monocytes # (Manual) Basophils # (Manual) PT INR Heparin Anti-Xa Level POC ABG pO2 ABG pH ABG Hemoglobin ABG Oxyhemoglobin ABG pO2 ABG HCO3 ABG O2 Saturation ABG Base Excess ABG Potassium ABG Chloride ABG Glucose Oxyhemoglobin Sodium Potassium Chloride Carbon Dioxide 19 L BUN 20 H Creatinine 0.5 L Glucose 103 H POC Glucose 135 H Lactic Acid Calcium 7.9 L AST Phosphorus Total Protein Albumin C-Reactive Protein Arterial Blood Glucose Arterial Blood Ionized Calcium Urine WBC (Auto) Crossmatch 01/28/20 01/28/20 01/28/20 08:50 11:10 11:51 WBC RBC Hgb Hct MCHC RDW Plt Count MCH Lymph % (Auto) Lymph # Lymph # (Auto) Seg Neutrophils % Seg Neuts % (Manual) Lymphocytes % (Manual) Seg Neutrophils # Seg Neutrophils # Man Basophils % (Manual) Nucleated RBC % Lymphocytes # (Manual) Monocytes # (Manual) Basophils # (Manual) PT INR Heparin Anti-Xa Level 0.74 H POC ABG pO2 67.2 L ABG pH ABG Hemoglobin 9.3 L ABG Oxyhemoglobin ABG pO2 ABG HCO3 ABG O2 Saturation ABG Base Excess ABG Potassium ABG Chloride ABG Glucose Oxyhemoglobin Sodium Potassium Chloride Carbon Dioxide BUN Creatinine Glucose POC Glucose 160 H Lactic Acid Calcium AST Phosphorus Total Protein Albumin C-Reactive Protein Arterial Blood Glucose Arterial Blood Ionized Calcium Urine WBC (Auto) Crossmatch 01/28/20 01/28/20 01/29/20 17:19 23:53 03:52 WBC RBC Hgb Hct MCHC RDW Plt Count MCH Lymph % (Auto) Lymph # Lymph # (Auto) Seg Neutrophils % Seg Neuts % (Manual) Lymphocytes % (Manual) Seg Neutrophils # Seg Neutrophils # Man Basophils % (Manual) Nucleated RBC % Lymphocytes # (Manual) Monocytes # (Manual) Basophils # (Manual) PT INR Heparin Anti-Xa Level POC ABG pO2 ABG pH 7.510 H ABG Hemoglobin 7.3 L ABG Oxyhemoglobin ABG pO2 357.0 H ABG HCO3 19.6 L ABG O2 Saturation 99.6 H ABG Base Excess -2.9 L ABG Potassium ABG Chloride ABG Glucose Oxyhemoglobin Sodium Potassium Chloride Carbon Dioxide BUN Creatinine Glucose POC Glucose 177 H 142 H Lactic Acid Calcium AST Phosphorus Total Protein Albumin C-Reactive Protein Arterial Blood Glucose Arterial Blood Ionized Calcium Urine WBC (Auto) Crossmatch 01/29/20 01/29/20 01/29/20 04:58 04:58 06:01 WBC 13.1 H RBC 2.75 L Hgb 8.6 L Hct 25.6 L MCHC RDW 17.7 H Plt Count MCH Lymph % (Auto) Lymph # Lymph # (Auto) Seg Neutrophils % Seg Neuts % (Manual) 91.0 H Lymphocytes % (Manual) 6.0 L Seg Neutrophils # Seg Neutrophils # Man 11.9 H Basophils % (Manual) Nucleated RBC % 1.0 H Lymphocytes # (Manual) 0.8 L Monocytes # (Manual) Basophils # (Manual) PT INR Heparin Anti-Xa Level POC ABG pO2 ABG pH ABG Hemoglobin ABG Oxyhemoglobin ABG pO2 ABG HCO3 ABG O2 Saturation ABG Base Excess ABG Potassium ABG Chloride ABG Glucose Oxyhemoglobin Sodium 148 H Potassium 3.5 L D Chloride 113.2 H Carbon Dioxide 21 L BUN 20 H Creatinine Glucose 137 H POC Glucose 167 H Lactic Acid Calcium 8.1 L AST Phosphorus Total Protein Albumin C-Reactive Protein Arterial Blood Glucose Arterial Blood Ionized Calcium Urine WBC (Auto) Crossmatch 01/29/20 01/29/20 01/29/20 11:45 17:52 23:49 WBC RBC Hgb Hct MCHC RDW Plt Count MCH Lymph % (Auto) Lymph # Lymph # (Auto) Seg Neutrophils % Seg Neuts % (Manual) Lymphocytes % (Manual) Seg Neutrophils # Seg Neutrophils # Man Basophils % (Manual) Nucleated RBC % Lymphocytes # (Manual) Monocytes # (Manual) Basophils # (Manual) PT INR Heparin Anti-Xa Level POC ABG pO2 ABG pH ABG Hemoglobin ABG Oxyhemoglobin ABG pO2 ABG HCO3 ABG O2 Saturation ABG Base Excess ABG Potassium ABG Chloride ABG Glucose Oxyhemoglobin Sodium Potassium Chloride Carbon Dioxide BUN Creatinine Glucose POC Glucose 185 H 226 H 141 H Lactic Acid Calcium AST Phosphorus Total Protein Albumin C-Reactive Protein Arterial Blood Glucose Arterial Blood Ionized Calcium Urine WBC (Auto) Crossmatch 01/29/20 01/30/20 01/30/20 Unknown 03:24 04:00 WBC RBC Hgb 7.8 L Hct 23.5 L MCHC RDW Plt Count MCH Lymph % (Auto) Lymph # Lymph # (Auto) Seg Neutrophils % Seg Neuts % (Manual) Lymphocytes % (Manual) Seg Neutrophils # Seg Neutrophils # Man Basophils % (Manual) Nucleated RBC % Lymphocytes # (Manual) Monocytes # (Manual) Basophils # (Manual) PT INR Heparin Anti-Xa Level POC ABG pO2 ABG pH 7.485 H ABG Hemoglobin 6.7 L ABG Oxyhemoglobin ABG pO2 102.0 H ABG HCO3 ABG O2 Saturation ABG Base Excess ABG Potassium ABG Chloride ABG Glucose Oxyhemoglobin Sodium Potassium Chloride Carbon Dioxide BUN Creatinine Glucose POC Glucose Lactic Acid Calcium AST Phosphorus Total Protein Albumin C-Reactive Protein 14.80 H Arterial Blood Glucose Arterial Blood Ionized Calcium Urine WBC (Auto) Crossmatch 01/30/20 01/30/20 01/30/20 05:50 11:15 17:07 WBC RBC Hgb Hct MCHC RDW Plt Count MCH Lymph % (Auto) Lymph # Lymph # (Auto) Seg Neutrophils % Seg Neuts % (Manual) Lymphocytes % (Manual) Seg Neutrophils # Seg Neutrophils # Man Basophils % (Manual) Nucleated RBC % Lymphocytes # (Manual) Monocytes # (Manual) Basophils # (Manual) PT INR Heparin Anti-Xa Level POC ABG pO2 ABG pH ABG Hemoglobin ABG Oxyhemoglobin ABG pO2 ABG HCO3 ABG O2 Saturation ABG Base Excess ABG Potassium ABG Chloride ABG Glucose Oxyhemoglobin Sodium Potassium Chloride Carbon Dioxide BUN Creatinine Glucose POC Glucose 122 H 207 H 124 H Lactic Acid Calcium AST Phosphorus Total Protein Albumin C-Reactive Protein Arterial Blood Glucose Arterial Blood Ionized Calcium Urine WBC (Auto) Crossmatch 01/30/20 01/31/20 01/31/20 17:08 00:10 04:52 WBC RBC Hgb Hct MCHC RDW Plt Count MCH Lymph % (Auto) Lymph # Lymph # (Auto) Seg Neutrophils % Seg Neuts % (Manual) Lymphocytes % (Manual) Seg Neutrophils # Seg Neutrophils # Man Basophils % (Manual) Nucleated RBC % Lymphocytes # (Manual) Monocytes # (Manual) Basophils # (Manual) PT INR Heparin Anti-Xa Level POC ABG pO2 ABG pH 7.504 H 7.486 H ABG Hemoglobin 7.4 L 6.2 L ABG Oxyhemoglobin ABG pO2 169.2 H 121.7 H ABG HCO3 27.1 H ABG O2 Saturation 99.1 H ABG Base Excess 3.4 H ABG Potassium ABG Chloride ABG Glucose Oxyhemoglobin Sodium Potassium Chloride Carbon Dioxide BUN Creatinine Glucose POC Glucose 191 H Lactic Acid Calcium AST Phosphorus Total Protein Albumin C-Reactive Protein Arterial Blood Glucose Arterial Blood Ionized Calcium Urine WBC (Auto) Crossmatch 01/31/20 01/31/20 01/31/20 05:37 11:59 12:40 WBC RBC 2.41 L Hgb 7.5 L Hct 22.3 L MCHC RDW 22.2 H Plt Count MCH Lymph % (Auto) Lymph # Lymph # (Auto) Seg Neutrophils % Seg Neuts % (Manual) 94.0 H Lymphocytes % (Manual) 2.0 L Seg Neutrophils # Seg Neutrophils # Man 9.4 H Basophils % (Manual) Nucleated RBC % Lymphocytes # (Manual) 0.2 L Monocytes # (Manual) Basophils # (Manual) PT INR Heparin Anti-Xa Level POC ABG pO2 ABG pH ABG Hemoglobin ABG Oxyhemoglobin ABG pO2 ABG HCO3 ABG O2 Saturation ABG Base Excess ABG Potassium ABG Chloride ABG Glucose Oxyhemoglobin Sodium Potassium Chloride Carbon Dioxide BUN Creatinine Glucose POC Glucose 175 H 220 H Lactic Acid Calcium AST Phosphorus Total Protein Albumin C-Reactive Protein Arterial Blood Glucose Arterial Blood Ionized Calcium Urine WBC (Auto) Crossmatch 01/31/20 01/31/20 01/31/20 12:40 14:40 18:18 WBC RBC Hgb Hct MCHC RDW Plt Count MCH Lymph % (Auto) Lymph # Lymph # (Auto) Seg Neutrophils % Seg Neuts % (Manual) Lymphocytes % (Manual) Seg Neutrophils # Seg Neutrophils # Man Basophils % (Manual) Nucleated RBC % Lymphocytes # (Manual) Monocytes # (Manual) Basophils # (Manual) PT INR Heparin Anti-Xa Level POC ABG pO2 124.7 H ABG pH 7.542 H ABG Hemoglobin 7.8 L ABG Oxyhemoglobin ABG pO2 ABG HCO3 ABG O2 Saturation ABG Base Excess ABG Potassium ABG Chloride ABG Glucose Oxyhemoglobin Sodium 151 H Potassium 2.1 L* D Chloride 108.9 H Carbon Dioxide BUN 22 H Creatinine Glucose 194 H POC Glucose 181 H Lactic Acid Calcium 8.1 L AST Phosphorus Total Protein 4.8 L Albumin 2.3 L C-Reactive Protein Arterial Blood Glucose Arterial Blood Ionized Calcium Urine WBC (Auto) Crossmatch 02/01/20 02/01/20 02/01/20 00:11 03:14 04:32 WBC 11.9 H RBC 2.47 L Hgb 7.6 L Hct 22.8 L MCHC RDW 22.7 H Plt Count MCH Lymph % (Auto) Lymph # Lymph # (Auto) Seg Neutrophils % Seg Neuts % (Manual) 90.0 H Lymphocytes % (Manual) 5.0 L Seg Neutrophils # Seg Neutrophils # Man 10.7 H Basophils % (Manual) Nucleated RBC % Lymphocytes # (Manual) 0.6 L Monocytes # (Manual) Basophils # (Manual) PT INR Heparin Anti-Xa Level POC ABG pO2 ABG pH 7.564 H ABG Hemoglobin 7.6 L ABG Oxyhemoglobin ABG pO2 124.1 H ABG HCO3 29.6 H ABG O2 Saturation ABG Base Excess 7.0 H ABG Potassium ABG Chloride ABG Glucose Oxyhemoglobin Sodium Potassium Chloride Carbon Dioxide BUN Creatinine Glucose POC Glucose 190 H Lactic Acid Calcium AST Phosphorus Total Protein Albumin C-Reactive Protein Arterial Blood Glucose Arterial Blood Ionized Calcium Urine WBC (Auto) Crossmatch 02/01/20 02/01/20 02/01/20 04:32 05:28 11:56 WBC RBC Hgb Hct MCHC RDW Plt Count MCH Lymph % (Auto) Lymph # Lymph # (Auto) Seg Neutrophils % Seg Neuts % (Manual) Lymphocytes % (Manual) Seg Neutrophils # Seg Neutrophils # Man Basophils % (Manual) Nucleated RBC % Lymphocytes # (Manual) Monocytes # (Manual) Basophils # (Manual) PT INR Heparin Anti-Xa Level POC ABG pO2 ABG pH ABG Hemoglobin ABG Oxyhemoglobin ABG pO2 ABG HCO3 ABG O2 Saturation ABG Base Excess ABG Potassium ABG Chloride ABG Glucose Oxyhemoglobin Sodium 149 H Potassium 2.6 L* D Chloride Carbon Dioxide 33 H BUN 23 H Creatinine 0.5 L Glucose 174 H POC Glucose 187 H 195 H Lactic Acid Calcium 8.0 L AST Phosphorus 1.60 L Total Protein Albumin C-Reactive Protein Arterial Blood Glucose Arterial Blood Ionized Calcium Urine WBC (Auto) Crossmatch 02/01/20 02/01/20 02/02/20 18:15 23:35 04:33 WBC RBC Hgb Hct MCHC RDW Plt Count MCH Lymph % (Auto) Lymph # Lymph # (Auto) Seg Neutrophils % Seg Neuts % (Manual) Lymphocytes % (Manual) Seg Neutrophils # Seg Neutrophils # Man Basophils % (Manual) Nucleated RBC % Lymphocytes # (Manual) Monocytes # (Manual) Basophils # (Manual) PT INR Heparin Anti-Xa Level POC ABG pO2 ABG pH 7.549 H ABG Hemoglobin 9.8 L ABG Oxyhemoglobin ABG pO2 ABG HCO3 ABG O2 Saturation ABG Base Excess ABG Potassium ABG Chloride ABG Glucose Oxyhemoglobin Sodium Potassium Chloride Carbon Dioxide BUN Creatinine Glucose POC Glucose 226 H 252 H Lactic Acid Calcium AST Phosphorus Total Protein Albumin C-Reactive Protein Arterial Blood Glucose Arterial Blood Ionized Calcium Urine WBC (Auto) Crossmatch 02/02/20 02/02/20 02/02/20 05:25 05:25 05:40 WBC 15.5 H RBC 2.43 L Hgb 7.6 L Hct 22.9 L MCHC RDW 23.6 H Plt Count MCH Lymph % (Auto) Lymph # Lymph # (Auto) Seg Neutrophils % Seg Neuts % (Manual) 89.0 H Lymphocytes % (Manual) 3.0 L Seg Neutrophils # Seg Neutrophils # Man 13.8 H Basophils % (Manual) Nucleated RBC % Lymphocytes # (Manual) 0.5 L Monocytes # (Manual) 0.9 H Basophils # (Manual) PT INR Heparin Anti-Xa Level POC ABG pO2 ABG pH ABG Hemoglobin ABG Oxyhemoglobin ABG pO2 ABG HCO3 ABG O2 Saturation ABG Base Excess ABG Potassium ABG Chloride ABG Glucose Oxyhemoglobin Sodium Potassium 2.6 L* Chloride Carbon Dioxide 33 H BUN 26 H Creatinine Glucose 175 H POC Glucose 181 H Lactic Acid Calcium 7.9 L AST Phosphorus Total Protein Albumin C-Reactive Protein Arterial Blood Glucose Arterial Blood Ionized Calcium Urine WBC (Auto) Crossmatch 02/02/20 02/02/20 02/02/20 11:55 14:45 17:18 WBC RBC Hgb Hct MCHC RDW Plt Count MCH Lymph % (Auto) Lymph # Lymph # (Auto) Seg Neutrophils % Seg Neuts % (Manual) Lymphocytes % (Manual) Seg Neutrophils # Seg Neutrophils # Man Basophils % (Manual) Nucleated RBC % Lymphocytes # (Manual) Monocytes # (Manual) Basophils # (Manual) PT INR Heparin Anti-Xa Level POC ABG pO2 ABG pH 7.56 H ABG Hemoglobin 7.6 L ABG Oxyhemoglobin ABG pO2 ABG HCO3 ABG O2 Saturation ABG Base Excess ABG Potassium ABG Chloride ABG Glucose Oxyhemoglobin Sodium Potassium Chloride Carbon Dioxide BUN Creatinine Glucose POC Glucose 226 H 227 H Lactic Acid Calcium AST Phosphorus Total Protein Albumin C-Reactive Protein Arterial Blood Glucose Arterial Blood Ionized Calcium Urine WBC (Auto) Crossmatch 02/02/20 02/03/20 02/03/20 20:54 00:02 05:14 WBC 18.7 H RBC 2.45 L Hgb 7.6 L Hct 23.2 L MCHC RDW 23.5 H Plt Count MCH Lymph % (Auto) Lymph # Lymph # (Auto) Seg Neutrophils % Seg Neuts % (Manual) 94.0 H Lymphocytes % (Manual) 3.0 L Seg Neutrophils # Seg Neutrophils # Man 17.6 H Basophils % (Manual) Nucleated RBC % Lymphocytes # (Manual) 0.6 L Monocytes # (Manual) Basophils # (Manual) PT INR Heparin Anti-Xa Level POC ABG pO2 ABG pH ABG Hemoglobin ABG Oxyhemoglobin ABG pO2 ABG HCO3 ABG O2 Saturation ABG Base Excess ABG Potassium ABG Chloride ABG Glucose Oxyhemoglobin Sodium Potassium 3.2 L D Chloride Carbon Dioxide BUN Creatinine Glucose POC Glucose 204 H Lactic Acid Calcium AST Phosphorus Total Protein Albumin C-Reactive Protein Arterial Blood Glucose Arterial Blood Ionized Calcium Urine WBC (Auto) Crossmatch 02/03/20 02/03/20 02/03/20 05:14 05:14 05:20 WBC RBC Hgb Hct MCHC RDW Plt Count MCH Lymph % (Auto) Lymph # Lymph # (Auto) Seg Neutrophils % Seg Neuts % (Manual) Lymphocytes % (Manual) Seg Neutrophils # Seg Neutrophils # Man Basophils % (Manual) Nucleated RBC % Lymphocytes # (Manual) Monocytes # (Manual) Basophils # (Manual) PT INR Heparin Anti-Xa Level POC ABG pO2 ABG pH ABG Hemoglobin ABG Oxyhemoglobin ABG pO2 ABG HCO3 ABG O2 Saturation ABG Base Excess ABG Potassium ABG Chloride ABG Glucose Oxyhemoglobin Sodium Potassium 3.1 L Chloride Carbon Dioxide 33 H BUN 29 H Creatinine 0.5 L Glucose 160 H POC Glucose 146 H Lactic Acid Calcium 7.9 L AST Phosphorus 2.30 L Total Protein 4.8 L Albumin 2.4 L C-Reactive Protein Arterial Blood Glucose Arterial Blood Ionized Calcium Urine WBC (Auto) Crossmatch 02/03/20 02/03/20 02/03/20 12:35 18:14 23:26 WBC RBC Hgb Hct MCHC RDW Plt Count MCH Lymph % (Auto) Lymph # Lymph # (Auto) Seg Neutrophils % Seg Neuts % (Manual) Lymphocytes % (Manual) Seg Neutrophils # Seg Neutrophils # Man Basophils % (Manual) Nucleated RBC % Lymphocytes # (Manual) Monocytes # (Manual) Basophils # (Manual) PT INR Heparin Anti-Xa Level POC ABG pO2 ABG pH ABG Hemoglobin ABG Oxyhemoglobin ABG pO2 ABG HCO3 ABG O2 Saturation ABG Base Excess ABG Potassium ABG Chloride ABG Glucose Oxyhemoglobin Sodium Potassium Chloride Carbon Dioxide BUN Creatinine Glucose POC Glucose 219 H 248 H 173 H Lactic Acid Calcium AST Phosphorus Total Protein Albumin C-Reactive Protein Arterial Blood Glucose Arterial Blood Ionized Calcium Urine WBC (Auto) Crossmatch 02/04/20 02/04/20 02/04/20 05:34 05:36 06:51 WBC RBC Hgb Hct MCHC RDW Plt Count MCH Lymph % (Auto) Lymph # Lymph # (Auto) Seg Neutrophils % Seg Neuts % (Manual) Lymphocytes % (Manual) Seg Neutrophils # Seg Neutrophils # Man Basophils % (Manual) Nucleated RBC % Lymphocytes # (Manual) Monocytes # (Manual) Basophils # (Manual) PT INR Heparin Anti-Xa Level POC ABG pO2 ABG pH ABG Hemoglobin ABG Oxyhemoglobin ABG pO2 ABG HCO3 ABG O2 Saturation ABG Base Excess ABG Potassium ABG Chloride ABG Glucose Oxyhemoglobin Sodium Potassium Chloride Carbon Dioxide BUN Creatinine Glucose POC Glucose 56 L 64 L 127 H Lactic Acid Calcium AST Phosphorus Total Protein Albumin C-Reactive Protein Arterial Blood Glucose Arterial Blood Ionized Calcium Urine WBC (Auto) Crossmatch 02/04/20 02/04/20 02/04/20 11:57 13:42 13:53 WBC 19.2 H RBC 2.48 L Hgb 7.8 L Hct 23.5 L MCHC RDW 24.2 H Plt Count MCH Lymph % (Auto) Lymph # Lymph # (Auto) Seg Neutrophils % Seg Neuts % (Manual) 97.0 H Lymphocytes % (Manual) 2.0 L Seg Neutrophils # Seg Neutrophils # Man 18.6 H Basophils % (Manual) Nucleated RBC % Lymphocytes # (Manual) 0.4 L Monocytes # (Manual) Basophils # (Manual) PT INR Heparin Anti-Xa Level POC ABG pO2 118.2 H ABG pH 7.525 H ABG Hemoglobin 8.7 L ABG Oxyhemoglobin ABG pO2 ABG HCO3 ABG O2 Saturation ABG Base Excess ABG Potassium 2.8 L ABG Chloride ABG Glucose 185 H Oxyhemoglobin Sodium Potassium Chloride Carbon Dioxide BUN Creatinine Glucose POC Glucose 224 H Lactic Acid Calcium AST Phosphorus Total Protein Albumin C-Reactive Protein Arterial Blood Glucose 185 H Arterial Blood Ionized Calcium 4.5 L Urine WBC (Auto) Crossmatch 02/04/20 02/04/20 02/04/20 13:53 18:15 23:35 WBC RBC Hgb Hct MCHC RDW Plt Count MCH Lymph % (Auto) Lymph # Lymph # (Auto) Seg Neutrophils % Seg Neuts % (Manual) Lymphocytes % (Manual) Seg Neutrophils # Seg Neutrophils # Man Basophils % (Manual) Nucleated RBC % Lymphocytes # (Manual) Monocytes # (Manual) Basophils # (Manual) PT INR Heparin Anti-Xa Level POC ABG pO2 ABG pH ABG Hemoglobin ABG Oxyhemoglobin ABG pO2 ABG HCO3 ABG O2 Saturation ABG Base Excess ABG Potassium ABG Chloride ABG Glucose Oxyhemoglobin Sodium 147 H Potassium 2.8 L* Chloride Carbon Dioxide 38 H BUN 33 H Creatinine 0.5 L Glucose 202 H POC Glucose 215 H 197 H Lactic Acid Calcium AST Phosphorus Total Protein Albumin C-Reactive Protein Arterial Blood Glucose Arterial Blood Ionized Calcium Urine WBC (Auto) Crossmatch 02/05/20 02/05/20 02/05/20 01:03 04:00 04:00 WBC 26.7 H RBC 2.59 L Hgb 8.1 L Hct 24.6 L MCHC RDW 24.1 H Plt Count MCH Lymph % (Auto) 1.6 L Lymph # Lymph # (Auto) 0.4 L Seg Neutrophils % Seg Neuts % (Manual) Lymphocytes % (Manual) Seg Neutrophils # 25.9 H Seg Neutrophils # Man Basophils % (Manual) Nucleated RBC % Lymphocytes # (Manual) Monocytes # (Manual) Basophils # (Manual) PT INR Heparin Anti-Xa Level POC ABG pO2 ABG pH ABG Hemoglobin 7.1 L ABG Oxyhemoglobin ABG pO2 50.7 L ABG HCO3 29.6 H ABG O2 Saturation 82.7 L ABG Base Excess 4.8 H ABG Potassium ABG Chloride ABG Glucose Oxyhemoglobin 81.0 L Sodium 146 H Potassium Chloride Carbon Dioxide 32 H BUN 35 H Creatinine 0.5 L Glucose 226 H POC Glucose Lactic Acid Calcium AST Phosphorus Total Protein 5.1 L Albumin 2.2 L C-Reactive Protein Arterial Blood Glucose Arterial Blood Ionized Calcium Urine WBC (Auto) Crossmatch 02/05/20 02/05/20 02/06/20 05:32 17:56 00:19 WBC RBC Hgb Hct MCHC RDW Plt Count MCH Lymph % (Auto) Lymph # Lymph # (Auto) Seg Neutrophils % Seg Neuts % (Manual) Lymphocytes % (Manual) Seg Neutrophils # Seg Neutrophils # Man Basophils % (Manual) Nucleated RBC % Lymphocytes # (Manual) Monocytes # (Manual) Basophils # (Manual) PT INR Heparin Anti-Xa Level POC ABG pO2 ABG pH ABG Hemoglobin ABG Oxyhemoglobin ABG pO2 ABG HCO3 ABG O2 Saturation ABG Base Excess ABG Potassium ABG Chloride ABG Glucose Oxyhemoglobin Sodium Potassium Chloride Carbon Dioxide BUN Creatinine Glucose POC Glucose 239 H 175 H 309 H Lactic Acid Calcium AST Phosphorus Total Protein Albumin C-Reactive Protein Arterial Blood Glucose Arterial Blood Ionized Calcium Urine WBC (Auto) Crossmatch 02/06/20 02/06/20 02/06/20 04:26 04:27 05:11 WBC RBC Hgb Hct MCHC RDW Plt Count MCH Lymph % (Auto) Lymph # Lymph # (Auto) Seg Neutrophils % Seg Neuts % (Manual) Lymphocytes % (Manual) Seg Neutrophils # Seg Neutrophils # Man Basophils % (Manual) Nucleated RBC % Lymphocytes # (Manual) Monocytes # (Manual) Basophils # (Manual) PT INR Heparin Anti-Xa Level POC ABG pO2 175.3 H 157.2 H ABG pH 7.502 H 7.551 H ABG Hemoglobin 10.8 L 7.3 L ABG Oxyhemoglobin 98.3 H ABG pO2 ABG HCO3 ABG O2 Saturation ABG Base Excess ABG Potassium 3.3 L ABG Chloride 109.0 H ABG Glucose 148 H Oxyhemoglobin Sodium 148 H Potassium 3.0 L Chloride 107.3 H Carbon Dioxide 33 H BUN 33 H Creatinine 0.5 L Glucose 283 H POC Glucose Lactic Acid Calcium 7.9 L AST Phosphorus Total Protein 3.6 L D Albumin 1.2 L C-Reactive Protein Arterial Blood Glucose 148 H Arterial Blood Ionized Calcium Urine WBC (Auto) Crossmatch 02/06/20 02/06/20 02/06/20 05:40 08:45 11:52 WBC 16.3 H RBC 2.12 L Hgb 6.6 L Hct 20.3 L MCHC RDW 24.4 H Plt Count MCH Lymph % (Auto) Lymph # Lymph # (Auto) Seg Neutrophils % Seg Neuts % (Manual) 98.0 H Lymphocytes % (Manual) 1.0 L Seg Neutrophils # Seg Neutrophils # Man 16.0 H Basophils % (Manual) Nucleated RBC % Lymphocytes # (Manual) 0.2 L Monocytes # (Manual) Basophils # (Manual) PT INR Heparin Anti-Xa Level POC ABG pO2 ABG pH ABG Hemoglobin ABG Oxyhemoglobin ABG pO2 ABG HCO3 ABG O2 Saturation ABG Base Excess ABG Potassium ABG Chloride ABG Glucose Oxyhemoglobin Sodium Potassium Chloride Carbon Dioxide BUN Creatinine Glucose POC Glucose 347 H 132 H Lactic Acid Calcium AST Phosphorus Total Protein Albumin C-Reactive Protein Arterial Blood Glucose Arterial Blood Ionized Calcium Urine WBC (Auto) Crossmatch 02/06/20 02/07/20 02/07/20 18:26 00:08 05:41 WBC RBC Hgb Hct MCHC RDW Plt Count MCH Lymph % (Auto) Lymph # Lymph # (Auto) Seg Neutrophils % Seg Neuts % (Manual) Lymphocytes % (Manual) Seg Neutrophils # Seg Neutrophils # Man Basophils % (Manual) Nucleated RBC % Lymphocytes # (Manual) Monocytes # (Manual) Basophils # (Manual) PT INR Heparin Anti-Xa Level POC ABG pO2 ABG pH ABG Hemoglobin ABG Oxyhemoglobin ABG pO2 ABG HCO3 ABG O2 Saturation ABG Base Excess ABG Potassium ABG Chloride ABG Glucose Oxyhemoglobin Sodium Potassium Chloride Carbon Dioxide BUN Creatinine Glucose POC Glucose 114 H 111 H 164 H Lactic Acid Calcium AST Phosphorus Total Protein Albumin C-Reactive Protein Arterial Blood Glucose Arterial Blood Ionized Calcium Urine WBC (Auto) Crossmatch 02/07/20 02/07/20 02/07/20 11:49 17:56 23:27 WBC RBC Hgb Hct MCHC RDW Plt Count MCH Lymph % (Auto) Lymph # Lymph # (Auto) Seg Neutrophils % Seg Neuts % (Manual) Lymphocytes % (Manual) Seg Neutrophils # Seg Neutrophils # Man Basophils % (Manual) Nucleated RBC % Lymphocytes # (Manual) Monocytes # (Manual) Basophils # (Manual) PT INR Heparin Anti-Xa Level POC ABG pO2 ABG pH ABG Hemoglobin ABG Oxyhemoglobin ABG pO2 ABG HCO3 ABG O2 Saturation ABG Base Excess ABG Potassium ABG Chloride ABG Glucose Oxyhemoglobin Sodium Potassium Chloride Carbon Dioxide BUN Creatinine Glucose POC Glucose 146 H 140 H 164 H Lactic Acid Calcium AST Phosphorus Total Protein Albumin C-Reactive Protein Arterial Blood Glucose Arterial Blood Ionized Calcium Urine WBC (Auto) Crossmatch 02/08/20 02/08/20 02/08/20 03:55 04:46 04:46 WBC RBC 2.30 L Hgb 7.3 L Hct 22.0 L MCHC RDW 23.9 H Plt Count MCH Lymph % (Auto) 8.5 L Lymph # Lymph # (Auto) 0.8 L Seg Neutrophils % 87.6 H Seg Neuts % (Manual) Lymphocytes % (Manual) Seg Neutrophils # 8.7 H Seg Neutrophils # Man Basophils % (Manual) Nucleated RBC % Lymphocytes # (Manual) Monocytes # (Manual) Basophils # (Manual) PT INR Heparin Anti-Xa Level POC ABG pO2 112.8 H ABG pH 7.511 H ABG Hemoglobin 7.8 L ABG Oxyhemoglobin ABG pO2 ABG HCO3 ABG O2 Saturation ABG Base Excess ABG Potassium 2.9 L ABG Chloride ABG Glucose 112 H Oxyhemoglobin Sodium Potassium 3.1 L Chloride Carbon Dioxide 31 H BUN 29 H Creatinine 0.3 L Glucose 108 H POC Glucose Lactic Acid Calcium AST Phosphorus Total Protein Albumin C-Reactive Protein Arterial Blood Glucose 112 H Arterial Blood Ionized Calcium Urine WBC (Auto) Crossmatch 10/08/2402/08/20 02/08/20 05:31 10:15 12:10 WBC RBC Hgb Hct MCHC RDW Plt Count MCH Lymph % (Auto) Lymph # Lymph # (Auto) Seg Neutrophils % Seg Neuts % (Manual) Lymphocytes % (Manual) Seg Neutrophils # Seg Neutrophils # Man Basophils % (Manual) Nucleated RBC % Lymphocytes # (Manual) Monocytes # (Manual) Basophils # (Manual) PT INR Heparin Anti-Xa Level POC ABG pO2 ABG pH ABG Hemoglobin ABG Oxyhemoglobin ABG pO2 ABG HCO3 ABG O2 Saturation ABG Base Excess ABG Potassium ABG Chloride ABG Glucose Oxyhemoglobin Sodium Potassium Chloride Carbon Dioxide BUN Creatinine Glucose POC Glucose 117 H 164 H 170 H Lactic Acid Calcium AST Phosphorus Total Protein Albumin C-Reactive Protein Arterial Blood Glucose Arterial Blood Ionized Calcium Urine WBC (Auto) Crossmatch 02/08/20 02/08/20 02/09/20 12:23 23:50 03:04 WBC RBC Hgb Hct MCHC RDW Plt Count MCH Lymph % (Auto) Lymph # Lymph # (Auto) Seg Neutrophils % Seg Neuts % (Manual) Lymphocytes % (Manual) Seg Neutrophils # Seg Neutrophils # Man Basophils % (Manual) Nucleated RBC % Lymphocytes # (Manual) Monocytes # (Manual) Basophils # (Manual) PT INR Heparin Anti-Xa Level POC ABG pO2 ABG pH 7.501 H ABG Hemoglobin 7.5 L ABG Oxyhemoglobin ABG pO2 ABG HCO3 ABG O2 Saturation ABG Base Excess ABG Potassium ABG Chloride ABG Glucose 143 H Oxyhemoglobin Sodium Potassium Chloride Carbon Dioxide BUN Creatinine Glucose POC Glucose 164 H 126 H Lactic Acid Calcium AST Phosphorus Total Protein Albumin C-Reactive Protein Arterial Blood Glucose 143 H Arterial Blood Ionized Calcium Urine WBC (Auto) Crossmatch 02/09/20 02/09/20 02/09/20 05:57 08:00 12:39 WBC RBC Hgb Hct MCHC RDW Plt Count MCH Lymph % (Auto) Lymph # Lymph # (Auto) Seg Neutrophils % Seg Neuts % (Manual) Lymphocytes % (Manual) Seg Neutrophils # Seg Neutrophils # Man Basophils % (Manual) Nucleated RBC % Lymphocytes # (Manual) Monocytes # (Manual) Basophils # (Manual) PT INR Heparin Anti-Xa Level POC ABG pO2 ABG pH ABG Hemoglobin ABG Oxyhemoglobin ABG pO2 ABG HCO3 ABG O2 Saturation ABG Base Excess ABG Potassium ABG Chloride ABG Glucose Oxyhemoglobin Sodium Potassium 3.3 L Chloride Carbon Dioxide 34 H BUN 27 H Creatinine 0.4 L Glucose 127 H POC Glucose 160 H 154 H Lactic Acid Calcium 8.2 L AST Phosphorus Total Protein Albumin C-Reactive Protein Arterial Blood Glucose Arterial Blood Ionized Calcium Urine WBC (Auto) Crossmatch 02/09/20 02/09/20 02/09/20 18:17 23:43 Unknown WBC RBC 2.15 L Hgb 7.0 L Hct 20.8 L MCHC RDW 23.3 H Plt Count MCH 33 H Lymph % (Auto) Lymph # Lymph # (Auto) Seg Neutrophils % Seg Neuts % (Manual) Lymphocytes % (Manual) Seg Neutrophils # Seg Neutrophils # Man Basophils % (Manual) Nucleated RBC % Lymphocytes # (Manual) Monocytes # (Manual) Basophils # (Manual) PT INR Heparin Anti-Xa Level POC ABG pO2 ABG pH ABG Hemoglobin ABG Oxyhemoglobin ABG pO2 ABG HCO3 ABG O2 Saturation ABG Base Excess ABG Potassium ABG Chloride ABG Glucose Oxyhemoglobin Sodium Potassium Chloride Carbon Dioxide BUN Creatinine Glucose POC Glucose 152 H 177 H Lactic Acid Calcium AST Phosphorus Total Protein Albumin C-Reactive Protein Arterial Blood Glucose Arterial Blood Ionized Calcium Urine WBC (Auto) Crossmatch 02/10/20 02/10/20 02/10/20 04:38 05:24 11:44 WBC RBC Hgb Hct MCHC RDW Plt Count MCH Lymph % (Auto) Lymph # Lymph # (Auto) Seg Neutrophils % Seg Neuts % (Manual) Lymphocytes % (Manual) Seg Neutrophils # Seg Neutrophils # Man Basophils % (Manual) Nucleated RBC % Lymphocytes # (Manual) Monocytes # (Manual) Basophils # (Manual) PT INR Heparin Anti-Xa Level POC ABG pO2 ABG pH 7.502 H ABG Hemoglobin 6.2 L ABG Oxyhemoglobin ABG pO2 136.0 H ABG HCO3 29.3 H ABG O2 Saturation ABG Base Excess 5.7 H ABG Potassium ABG Chloride ABG Glucose Oxyhemoglobin Sodium Potassium Chloride Carbon Dioxide BUN Creatinine Glucose POC Glucose 113 H 176 H Lactic Acid Calcium AST Phosphorus Total Protein Albumin C-Reactive Protein Arterial Blood Glucose Arterial Blood Ionized Calcium Urine WBC (Auto) Crossmatch 02/10/20 02/11/20 02/11/20 23:42 03:43 04:12 WBC RBC 2.12 L Hgb 6.9 L Hct 20.6 L MCHC RDW 23.4 H Plt Count MCH 33 H Lymph % (Auto) Lymph # Lymph # (Auto) Seg Neutrophils % 84.7 H Seg Neuts % (Manual) 83.0 H Lymphocytes % (Manual) 11.0 L Seg Neutrophils # Seg Neutrophils # Man Basophils % (Manual) Nucleated RBC % Lymphocytes # (Manual) 1.0 L Monocytes # (Manual) Basophils # (Manual) PT INR Heparin Anti-Xa Level POC ABG pO2 112.6 H ABG pH 7.480 H ABG Hemoglobin 7.2 L ABG Oxyhemoglobin ABG pO2 ABG HCO3 ABG O2 Saturation ABG Base Excess ABG Potassium ABG Chloride ABG Glucose 154 H Oxyhemoglobin Sodium Potassium Chloride Carbon Dioxide BUN Creatinine Glucose POC Glucose 149 H Lactic Acid Calcium AST Phosphorus Total Protein Albumin C-Reactive Protein Arterial Blood Glucose 154 H Arterial Blood Ionized Calcium Urine WBC (Auto) Crossmatch 02/11/20 02/11/20 02/11/20 04:12 05:50 08:22 WBC RBC Hgb Hct MCHC RDW Plt Count MCH Lymph % (Auto) Lymph # Lymph # (Auto) Seg Neutrophils % Seg Neuts % (Manual) Lymphocytes % (Manual) Seg Neutrophils # Seg Neutrophils # Man Basophils % (Manual) Nucleated RBC % Lymphocytes # (Manual) Monocytes # (Manual) Basophils # (Manual) PT INR Heparin Anti-Xa Level POC ABG pO2 ABG pH ABG Hemoglobin ABG Oxyhemoglobin ABG pO2 ABG HCO3 ABG O2 Saturation ABG Base Excess ABG Potassium ABG Chloride ABG Glucose Oxyhemoglobin Sodium 146 H Potassium Chloride Carbon Dioxide BUN 24 H Creatinine 0.4 L Glucose 168 H POC Glucose 190 H Lactic Acid Calcium 8.0 L AST Phosphorus Total Protein Albumin C-Reactive Protein Arterial Blood Glucose Arterial Blood Ionized Calcium Urine WBC (Auto) Crossmatch See Detail 02/11/20 02/11/20 02/11/20 11:41 17:33 23:40 WBC RBC Hgb Hct MCHC RDW Plt Count MCH Lymph % (Auto) Lymph # Lymph # (Auto) Seg Neutrophils % Seg Neuts % (Manual) Lymphocytes % (Manual) Seg Neutrophils # Seg Neutrophils # Man Basophils % (Manual) Nucleated RBC % Lymphocytes # (Manual) Monocytes # (Manual) Basophils # (Manual) PT INR Heparin Anti-Xa Level POC ABG pO2 ABG pH ABG Hemoglobin ABG Oxyhemoglobin ABG pO2 ABG HCO3 ABG O2 Saturation ABG Base Excess ABG Potassium ABG Chloride ABG Glucose Oxyhemoglobin Sodium Potassium Chloride Carbon Dioxide BUN Creatinine Glucose POC Glucose 260 H 132 H 54 L Lactic Acid Calcium AST Phosphorus Total Protein Albumin C-Reactive Protein Arterial Blood Glucose Arterial Blood Ionized Calcium Urine WBC (Auto) Crossmatch 02/12/20 02/12/20 02/12/20 05:16 06:45 11:48 WBC RBC Hgb 8.6 L Hct 25.2 L MCHC RDW Plt Count MCH Lymph % (Auto) Lymph # Lymph # (Auto) Seg Neutrophils % Seg Neuts % (Manual) Lymphocytes % (Manual) Seg Neutrophils # Seg Neutrophils # Man Basophils % (Manual) Nucleated RBC % Lymphocytes # (Manual) Monocytes # (Manual) Basophils # (Manual) PT INR Heparin Anti-Xa Level POC ABG pO2 ABG pH ABG Hemoglobin ABG Oxyhemoglobin ABG pO2 ABG HCO3 ABG O2 Saturation ABG Base Excess ABG Potassium ABG Chloride ABG Glucose Oxyhemoglobin Sodium Potassium Chloride Carbon Dioxide BUN Creatinine Glucose POC Glucose 127 H 163 H Lactic Acid Calcium AST Phosphorus Total Protein Albumin C-Reactive Protein Arterial Blood Glucose Arterial Blood Ionized Calcium Urine WBC (Auto) Crossmatch 02/12/20 02/12/20 02/13/20 17:25 23:53 04:30 WBC RBC Hgb Hct MCHC RDW Plt Count MCH Lymph % (Auto) Lymph # Lymph # (Auto) Seg Neutrophils % Seg Neuts % (Manual) Lymphocytes % (Manual) Seg Neutrophils # Seg Neutrophils # Man Basophils % (Manual) Nucleated RBC % Lymphocytes # (Manual) Monocytes # (Manual) Basophils # (Manual) PT INR Heparin Anti-Xa Level POC ABG pO2 ABG pH 7.463 H ABG Hemoglobin ABG Oxyhemoglobin ABG pO2 98.4 H ABG HCO3 27.7 H ABG O2 Saturation ABG Base Excess 3.7 H ABG Potassium ABG Chloride ABG Glucose Oxyhemoglobin Sodium Potassium Chloride Carbon Dioxide BUN Creatinine Glucose POC Glucose 152 H 140 H Lactic Acid Calcium AST Phosphorus Total Protein Albumin C-Reactive Protein Arterial Blood Glucose Arterial Blood Ionized Calcium Urine WBC (Auto) Crossmatch 02/13/20 02/13/20 02/13/20 04:45 04:45 05:19 WBC RBC 2.73 L Hgb 8.7 L Hct 25.6 L MCHC RDW 21.3 H Plt Count MCH Lymph % (Auto) 12.0 L Lymph # Lymph # (Auto) 1.0 L Seg Neutrophils % 82.5 H Seg Neuts % (Manual) Lymphocytes % (Manual) Seg Neutrophils # Seg Neutrophils # Man Basophils % (Manual) Nucleated RBC % Lymphocytes # (Manual) Monocytes # (Manual) Basophils # (Manual) PT INR Heparin Anti-Xa Level POC ABG pO2 ABG pH ABG Hemoglobin ABG Oxyhemoglobin ABG pO2 ABG HCO3 ABG O2 Saturation ABG Base Excess ABG Potassium ABG Chloride ABG Glucose Oxyhemoglobin Sodium Potassium 3.4 L Chloride Carbon Dioxide 31 H BUN 24 H Creatinine 0.3 L Glucose 122 H POC Glucose 127 H Lactic Acid Calcium 8.0 L AST Phosphorus Total Protein 4.2 L Albumin 2.0 L C-Reactive Protein Arterial Blood Glucose Arterial Blood Ionized Calcium Urine WBC (Auto) Crossmatch 02/13/20 02/14/20 02/14/20 23:08 04:26 04:26 WBC RBC 2.74 L Hgb 8.7 L Hct 25.8 L MCHC RDW 21.3 H Plt Count MCH Lymph % (Auto) 13.2 L Lymph # Lymph # (Auto) Seg Neutrophils % 81.4 H Seg Neuts % (Manual) Lymphocytes % (Manual) Seg Neutrophils # 8.4 H Seg Neutrophils # Man Basophils % (Manual) Nucleated RBC % Lymphocytes # (Manual) Monocytes # (Manual) Basophils # (Manual) PT INR Heparin Anti-Xa Level POC ABG pO2 ABG pH ABG Hemoglobin ABG Oxyhemoglobin ABG pO2 ABG HCO3 ABG O2 Saturation ABG Base Excess ABG Potassium ABG Chloride ABG Glucose Oxyhemoglobin Sodium Potassium 3.4 L Chloride 107.6 H Carbon Dioxide BUN 20 H Creatinine 0.3 L Glucose 170 H POC Glucose 148 H Lactic Acid Calcium 8.2 L AST Phosphorus Total Protein Albumin C-Reactive Protein Arterial Blood Glucose Arterial Blood Ionized Calcium Urine WBC (Auto) Crossmatch 02/14/20 02/14/20 02/14/20 05:05 12:08 17:37 WBC RBC Hgb Hct MCHC RDW Plt Count MCH Lymph % (Auto) Lymph # Lymph # (Auto) Seg Neutrophils % Seg Neuts % (Manual) Lymphocytes % (Manual) Seg Neutrophils # Seg Neutrophils # Man Basophils % (Manual) Nucleated RBC % Lymphocytes # (Manual) Monocytes # (Manual) Basophils # (Manual) PT INR Heparin Anti-Xa Level POC ABG pO2 ABG pH ABG Hemoglobin ABG Oxyhemoglobin ABG pO2 ABG HCO3 ABG O2 Saturation ABG Base Excess ABG Potassium ABG Chloride ABG Glucose Oxyhemoglobin Sodium Potassium Chloride Carbon Dioxide BUN Creatinine Glucose POC Glucose 182 H 156 H 144 H Lactic Acid Calcium AST Phosphorus Total Protein Albumin C-Reactive Protein Arterial Blood Glucose Arterial Blood Ionized Calcium Urine WBC (Auto) Crossmatch 02/14/20 02/15/20 02/15/20 23:36 05:44 12:11 WBC RBC Hgb Hct MCHC RDW Plt Count MCH Lymph % (Auto) Lymph # Lymph # (Auto) Seg Neutrophils % Seg Neuts % (Manual) Lymphocytes % (Manual) Seg Neutrophils # Seg Neutrophils # Man Basophils % (Manual) Nucleated RBC % Lymphocytes # (Manual) Monocytes # (Manual) Basophils # (Manual) PT INR Heparin Anti-Xa Level POC ABG pO2 ABG pH ABG Hemoglobin ABG Oxyhemoglobin ABG pO2 ABG HCO3 ABG O2 Saturation ABG Base Excess ABG Potassium ABG Chloride ABG Glucose Oxyhemoglobin Sodium Potassium Chloride Carbon Dioxide BUN Creatinine Glucose POC Glucose 183 H 203 H 140 H Lactic Acid Calcium AST Phosphorus Total Protein Albumin C-Reactive Protein Arterial Blood Glucose Arterial Blood Ionized Calcium Urine WBC (Auto) Crossmatch 02/15/20 02/16/20 02/16/20 17:23 00:12 05:09 WBC RBC Hgb 8.8 L Hct 26.0 L MCHC RDW Plt Count MCH Lymph % (Auto) Lymph # Lymph # (Auto) Seg Neutrophils % Seg Neuts % (Manual) Lymphocytes % (Manual) Seg Neutrophils # Seg Neutrophils # Man Basophils % (Manual) Nucleated RBC % Lymphocytes # (Manual) Monocytes # (Manual) Basophils # (Manual) PT INR Heparin Anti-Xa Level POC ABG pO2 ABG pH ABG Hemoglobin ABG Oxyhemoglobin ABG pO2 ABG HCO3 ABG O2 Saturation ABG Base Excess ABG Potassium ABG Chloride ABG Glucose Oxyhemoglobin Sodium Potassium Chloride Carbon Dioxide BUN Creatinine Glucose POC Glucose 170 H 133 H Lactic Acid Calcium AST Phosphorus Total Protein Albumin C-Reactive Protein Arterial Blood Glucose Arterial Blood Ionized Calcium Urine WBC (Auto) Crossmatch 02/16/20 02/16/20 02/16/20 05:09 05:21 12:22 WBC RBC Hgb Hct MCHC RDW Plt Count MCH Lymph % (Auto) Lymph # Lymph # (Auto) Seg Neutrophils % Seg Neuts % (Manual) Lymphocytes % (Manual) Seg Neutrophils # Seg Neutrophils # Man Basophils % (Manual) Nucleated RBC % Lymphocytes # (Manual) Monocytes # (Manual) Basophils # (Manual) PT INR Heparin Anti-Xa Level POC ABG pO2 ABG pH ABG Hemoglobin ABG Oxyhemoglobin ABG pO2 ABG HCO3 ABG O2 Saturation ABG Base Excess ABG Potassium ABG Chloride ABG Glucose Oxyhemoglobin Sodium Potassium Chloride Carbon Dioxide 31 H BUN 18 H Creatinine 0.3 L Glucose 152 H POC Glucose 160 H 138 H Lactic Acid Calcium 7.9 L AST Phosphorus Total Protein Albumin C-Reactive Protein Arterial Blood Glucose Arterial Blood Ionized Calcium Urine WBC (Auto) Crossmatch 02/16/20 02/17/20 02/17/20 16:35 00:01 05:22 WBC RBC Hgb Hct MCHC RDW Plt Count MCH Lymph % (Auto) Lymph # Lymph # (Auto) Seg Neutrophils % Seg Neuts % (Manual) Lymphocytes % (Manual) Seg Neutrophils # Seg Neutrophils # Man Basophils % (Manual) Nucleated RBC % Lymphocytes # (Manual) Monocytes # (Manual) Basophils # (Manual) PT INR Heparin Anti-Xa Level POC ABG pO2 ABG pH ABG Hemoglobin ABG Oxyhemoglobin ABG pO2 ABG HCO3 ABG O2 Saturation ABG Base Excess ABG Potassium ABG Chloride ABG Glucose Oxyhemoglobin Sodium Potassium Chloride Carbon Dioxide BUN Creatinine Glucose POC Glucose 142 H 173 H 126 H Lactic Acid Calcium AST Phosphorus Total Protein Albumin C-Reactive Protein Arterial Blood Glucose Arterial Blood Ionized Calcium Urine WBC (Auto) Crossmatch 02/17/20 02/17/20 02/18/20 11:35 18:08 00:15 WBC RBC Hgb Hct MCHC RDW Plt Count MCH Lymph % (Auto) Lymph # Lymph # (Auto) Seg Neutrophils % Seg Neuts % (Manual) Lymphocytes % (Manual) Seg Neutrophils # Seg Neutrophils # Man Basophils % (Manual) Nucleated RBC % Lymphocytes # (Manual) Monocytes # (Manual) Basophils # (Manual) PT INR Heparin Anti-Xa Level POC ABG pO2 ABG pH ABG Hemoglobin ABG Oxyhemoglobin ABG pO2 ABG HCO3 ABG O2 Saturation ABG Base Excess ABG Potassium ABG Chloride ABG Glucose Oxyhemoglobin Sodium Potassium Chloride Carbon Dioxide BUN Creatinine Glucose POC Glucose 113 H 136 H 160 H Lactic Acid Calcium AST Phosphorus Total Protein Albumin C-Reactive Protein Arterial Blood Glucose Arterial Blood Ionized Calcium Urine WBC (Auto) Crossmatch 02/18/20 02/18/20 02/18/20 04:43 04:43 05:30 WBC RBC 3.24 L Hgb Hct MCHC RDW 20.1 H Plt Count 455 H MCH Lymph % (Auto) Lymph # Lymph # (Auto) Seg Neutrophils % Seg Neuts % (Manual) Lymphocytes % (Manual) Seg Neutrophils # Seg Neutrophils # Man Basophils % (Manual) Nucleated RBC % Lymphocytes # (Manual) Monocytes # (Manual) Basophils # (Manual) PT INR Heparin Anti-Xa Level POC ABG pO2 ABG pH ABG Hemoglobin ABG Oxyhemoglobin ABG pO2 ABG HCO3 ABG O2 Saturation ABG Base Excess ABG Potassium ABG Chloride ABG Glucose Oxyhemoglobin Sodium Potassium Chloride Carbon Dioxide BUN Creatinine 0.3 L Glucose 118 H POC Glucose 139 H Lactic Acid Calcium AST Phosphorus Total Protein Albumin C-Reactive Protein Arterial Blood Glucose Arterial Blood Ionized Calcium Urine WBC (Auto) Crossmatch 02/18/20 02/18/20 02/19/20 11:55 17:51 00:00 WBC RBC Hgb Hct MCHC RDW Plt Count MCH Lymph % (Auto) Lymph # Lymph # (Auto) Seg Neutrophils % Seg Neuts % (Manual) Lymphocytes % (Manual) Seg Neutrophils # Seg Neutrophils # Man Basophils % (Manual) Nucleated RBC % Lymphocytes # (Manual) Monocytes # (Manual) Basophils # (Manual) PT INR Heparin Anti-Xa Level POC ABG pO2 ABG pH ABG Hemoglobin ABG Oxyhemoglobin ABG pO2 ABG HCO3 ABG O2 Saturation ABG Base Excess ABG Potassium ABG Chloride ABG Glucose Oxyhemoglobin Sodium Potassium Chloride Carbon Dioxide BUN Creatinine Glucose POC Glucose 165 H 139 H 141 H Lactic Acid Calcium AST Phosphorus Total Protein Albumin C-Reactive Protein Arterial Blood Glucose Arterial Blood Ionized Calcium Urine WBC (Auto) Crossmatch 02/19/20 02/19/20 02/20/20 05:45 12:20 05:36 WBC RBC Hgb Hct MCHC RDW Plt Count MCH Lymph % (Auto) Lymph # Lymph # (Auto) Seg Neutrophils % Seg Neuts % (Manual) Lymphocytes % (Manual) Seg Neutrophils # Seg Neutrophils # Man Basophils % (Manual) Nucleated RBC % Lymphocytes # (Manual) Monocytes # (Manual) Basophils # (Manual) PT INR Heparin Anti-Xa Level POC ABG pO2 ABG pH ABG Hemoglobin ABG Oxyhemoglobin ABG pO2 ABG HCO3 ABG O2 Saturation ABG Base Excess ABG Potassium ABG Chloride ABG Glucose Oxyhemoglobin Sodium Potassium Chloride Carbon Dioxide BUN Creatinine Glucose POC Glucose 169 H 161 H 159 H Lactic Acid Calcium AST Phosphorus Total Protein Albumin C-Reactive Protein Arterial Blood Glucose Arterial Blood Ionized Calcium Urine WBC (Auto) Crossmatch 02/20/20 02/20/20 08:24 08:24 WBC RBC 2.74 L Hgb 8.7 L Hct 26.4 L MCHC RDW 19.4 H Plt Count MCH Lymph % (Auto) Lymph # Lymph # (Auto) Seg Neutrophils % Seg Neuts % (Manual) 79.0 H Lymphocytes % (Manual) 12.0 L Seg Neutrophils # Seg Neutrophils # Man Basophils % (Manual) 2.0 H Nucleated RBC % Lymphocytes # (Manual) 1.0 L Monocytes # (Manual) Basophils # (Manual) 0.2 H PT INR Heparin Anti-Xa Level POC ABG pO2 ABG pH ABG Hemoglobin ABG Oxyhemoglobin ABG pO2 ABG HCO3 ABG O2 Saturation ABG Base Excess ABG Potassium ABG Chloride ABG Glucose Oxyhemoglobin Sodium 134 L Potassium Chloride Carbon Dioxide BUN Creatinine 0.3 L Glucose 136 H POC Glucose Lactic Acid Calcium 8.0 L AST Phosphorus Total Protein Albumin C-Reactive Protein Arterial Blood Glucose Arterial Blood Ionized Calcium Urine WBC (Auto) Crossmatch Allied health notes reviewed: RT
[2020-02-20] MEDS ORDERED: SODIUM CHLORIDE 0.9% 250ML 250 ML ONE (20:05)
[2020-02-20] MEDS: DONEPEZIL 10 MG TAB PO SCH (21:18)
[2020-02-20] MEDS: traZODone 50 MG TAB PO SCH (21:18)
[2020-02-20] MEDS: MIRTAZAPINE 15 MG TAB PO SCH (21:19)
[2020-02-21] MEDS: PIPERACIL/TAZOBACTA 4.5/NS 100 4.5 GM/100 ML VIAL IV SCH ×3 (05:35→21:06)
[2020-02-21] MEDS: INSULIN REGULAR, HUMAN 100 UNIT/ML 3ML VIAL SUB-Q SCH ×4 (05:36→23:32)
[2020-02-21] MEDS ORDERED: SODIUM CHLORIDE 0.9% 250ML 250 ML IV ONE (05:45)
--- NOTE | 2020-02-21 08:27 | Progress Note ---
Assessment and Plan Assessment and plan: 69-year-old -Thai female with known history of dementia, and according to the does not talk much due to this. Diabetes mellitus and pulmonary embolism was admitted through the emergency room from the group home on 01/07 for decreased responsiveness, lethargy and hypotension. Patient had sepsis UTI and sacral decubitus ulcer evaluated by ID, medications optimized, patient went into acute hypoxic respiratory failure requiring intubation admitted to ICU, extubated, patient sustained cardiac arrest x2, Requiring reintubation, became vent dependent, surgery evaluated underwent trach and PEG, currently patient is awaiting LTAC/SNF placement Patient remains vent dependent, with severe metabolic and hypoxic encephalopathy. Patient has unstageable sacral decubitus ulcer status post debridement Sepsis on long-term antibiotics total 6 weeks per ID, stop date 02/27/2020 --Acute hypoxic respiratory failure; vent dependent s/p tracheostomy,02/13/2020 per surgery, trach care, ventilatory support status post extubation 02/02/2020 but had to be reintubated on 02/04 We will continue current care, pulmonary critical following --Dysphagia s/p PEG placement; continue PEG feeds per protocol --Shock/ septic shock; s/p Levophed,monitor off Levophed --s/p PEA arrest night of 01/28/2020 and 02/05/2020 s/p CPR per ACLS protocol --Anoxic/hypoxic brain injury[status post PEA cardiac arrest]; supportive care Poor prognosis, family aware --Unstageable sacral decubitus ulcer, infected/POA s/p wound debridement on 01/15. Continue wound vac , Proteus bacteremia On zosyn 4.5 g IV q8h total 6 weeks per ID stop date 02/27/2020 --Sepsis /Proteus bacteremia: Due to sacral decubitus Long-term Zosyn per ID stop date 02/27/2020[total 6 weeks] --Hypokalemia /Hypernatremia; resolved --Anemia ; received 1 unit PRBC, now Hb 8.8 -- Diabetes mellitus; Blood sugars well controlled, A1c 5.3 Accu-Chek,SSC, long-acting insulin as needed Tube feeding diet -- Hydropneumothorax, not POA Patient developed hydropneumothorax on 01/15. Surgery evaluated s/p chest tube placed on 01/15. Improved, s/p chest tube removed 01/22, extubated 02/02/2020 Reintubated 02/05/2020 , tracheostomy 02/13/2020 -- large Left pleural effusion 01/25 01/27; s/p bronchoscopy and Therapeutic suctioning of the lungs done by observer electrical prospecting -- UTI (urinary tract infection)Completed antibiotics --h/o Bilateral pulmonary embolism 7 months ago Repeat CTA chest and LE doppler showed no acute PE or DVT, eliquis stopped -- Dementia: Continue donepezil --Severe protein-calorie malnutrition PEG placed 01/13. PEG feeds per protocol --DVT prophylaxis; SCDs --Disposition; possible LTAC placement Closely monitor the patient and adjust management as needed Plan of care reviewed with the patient and her nurse The high probability of a clinically significant, sudden or life threatening deterioration of the [Respiratory, UNIFORM ATTENDANT, CVs] system(s) required my full and direct attention, intervention and personal management. The aggregate critical care time was [31] minutes. This time is in addition to time spent performing reported procedures but includes the following: [x] Data Review and interpretation [x] Patient assessment and monitoring of vital signs [x] Documentation [x] Medication orders and management . Patient currently with PSV/CPAP FiO2 50%, PEEP of 6 and pressure support of 10. Continue PSV trials as tolerated and wean per pulmonary. Recall ID consultation. 02/08/2020. Patient with Proteus bacteremia likely from sacral decubitus. Continue Zosyn 4.5 g IV every 8 hours until stop date of 02/26. Patient still on mechanical ventilation AC mode rate 12, tidal volume 350, FiO2 30% and PEEP of 6. Poor prognosis. Consider hospice. Continue scopolamine for secretion control. Continue pressors to maintain MAP > 65; currently off. 02/09/2020. Continue Zosyn 4.5 g IV every 8 hours for Proteus bacteremia with end date of 02/27/2020. Continue wound care/wound VAC per surgery. Patient still on mechanical ventilation AC mode rate 12, tidal volume 350, FiO2 30% and PEEP of 6. Poor prognosis. Consider hospice. Continue scopolamine for secretion control. Currently off pressors. 02/09; evaluated by surgery, planning tracheostomy pending COVID test 02/10; possible tracheostomy today pending COVID test, surgery following 02/11; patient n.p.o. from midnight, possible tracheostomy tomorrow Received 1 unit of PRBC, Hb improved to 8.6 02/12; scheduled for tracheostomy today 02/13; trach care, bilateral upper extremity L edema and swelling, check venous Doppler 02/14; right upper extremity swelling edema, DC the line, elevate the limb 02/15;RUE venous Doppler no DVT, superficial thrombophlebitis, elevate the limb and supportive care 02/16; pending LTAC/SNF placement 02/17; pending LTAC/SNF placement 02/18; trach and PEG, on ventilatory support, awaiting LTAC placement. Sacral decubitus long-term a antibiotics Zosyn stop date 02/27/202002/19: Overnight patient experienced some hypotensive episodes. Was re suscitated with IV fluids. Doppler done over the course of the week showed a superficial right cephalic vein thrombosis. Will obtain intermittent labs this morning my understanding is that we are awaiting placement to LTAC. Patient is status post trach and PEG. 02/20; no significant change overnight, pending LTAC placement. Disposition; Awaiting LTAC/SNF placement History Interval history: Patient was seen and evaluated this morning Patient was intubated and on mechanical ventilator Hospitalist Physical - Physical exam Narrative exam: Patient is intubated and on mechanical ventilator The patient appeared well nourished and normally developed. Vital signs as documented. Head exam is unremarkable. No scleral icterus . Neck is without jugular venous distension, thyromegaly, or carotid bruits. Lungs are clear to auscultation. Cardiac exam reveals regular rate and Rhythm. Abdominal exam reveals normal bowel sounds, nontender, no organomegaly. Extremities are nonedematous and both femoral and pedal pulses are normal. UNIFORM ATTENDANT: Intubated - Constitutional Vitals: Temp Pulse Resp BP Pulse Ox 98.3 F 99 H 21 107/71 100 02/21/20 07:58 02/21/20 08:13 02/21/20 06:00 02/21/20 08:13 02/21/20 08:14 General appearance: Present: no acute distress, well-nourished, other (Tracheostomy on vent) Results - Labs CBC & Chem 7: 02/20/20 08:24 02/20/20 08:24 Labs: Laboratory Last Values WBC 8.2 K/mm3 (4.5-11.0) 02/20/20 08:24 RBC 2.74 M/mm3 (3.65-5.03) L 02/20/20 08:24 Hgb 8.7 gm/dl (10.1-14.3) L 02/20/20 08:24 Hct 26.4 % (30.3-42.9) L 02/20/20 08:24 MCV 96 fl (79-97) 02/20/20 08:24 MCH 32 pg (28-32) 02/20/20 08:24 MCHC 33 % (30-34) 02/20/20 08:24 RDW 19.4 % (13.2-15.2) H 02/20/20 08:24 Plt Count 356 K/mm3 (140-440) 02/20/20 08:24 Lymph % (Auto) 13.2 % (13.4-35.0) L 02/14/20 04:26 [place] % (Auto) 3.6 % (0.0-7.3) 02/14/20 04:26 Eos % (Auto) 1.0 % (0.0-4.3) 02/14/20 04:26 Baso % (Auto) 0.8 % (0.0-1.8) 02/14/20 04:26 Lymph # (Auto) 1.4 K/mm3 (1.2-5.4) 02/14/20 04:26 [place] # (Auto) 0.4 K/mm3 (0.0-0.8) 02/14/20 04:26 Eos # (Auto) 0.1 K/mm3 (0.0-0.4) 02/14/20 04:26 Baso # (Auto) 0.1 K/mm3 (0.0-0.1) 02/14/20 04:26 Add Manual Diff Complete 02/20/20 08:24 Total Counted 100 02/20/20 08:24 Seg Neutrophils % 81.4 % (40.0-70.0) H 02/14/20 04:26 Seg Neuts % (Manual) 79.0 % (40.0-70.0) H 02/20/20 08:24 Band Neutrophils % 0 % 02/20/20 08:24 Lymphocytes % (Manual) 12.0 % (13.4-35.0) L 02/20/20 08:24 Reactive Lymphs % (Man) 0 % 02/20/20 08:24 Monocytes % (Manual) 4.0 % (0.0-7.3) 02/20/20 08:24 Eosinophils % (Manual) 3.0 % (0.0-4.3) 02/20/20 08:24 Basophils % (Manual) 2.0 % (0.0-1.8) H 02/20/20 08:24 Metamyelocytes % 0 % 02/20/20 08:24 Myelocytes % 0 % 02/20/20 08:24 Promyelocytes % 0 % 02/20/20 08:24 Blast Cells % 0 % 02/20/20 08:24 Nucleated RBC % Not Reportable 02/20/20 08:24 Seg Neutrophils # 8.4 K/mm3 (1.8-7.7) H 02/14/20 04:26 Seg Neutrophils # Man 6.5 K/mm3 (1.8-7.7) 02/20/20 08:24 Band Neutrophils # 0.0 K/mm3 02/20/20 08:24 Lymphocytes # (Manual) 1.0 K/mm3 (1.2-5.4) L 02/20/20 08:24 Abs React Lymphs (Man) 0.0 K/mm3 02/20/20 08:24 Monocytes # (Manual) 0.3 K/mm3 (0.0-0.8) 02/20/20 08:24 Eosinophils # (Manual) 0.2 K/mm3 (0.0-0.4) 02/20/20 08:24 Basophils # (Manual) 0.2 K/mm3 (0.0-0.1) H 02/20/20 08:24 Metamyelocytes # 0.0 K/mm3 02/20/20 08:24 Myelocytes # 0.0 K/mm3 02/20/20 08:24 Promyelocytes # 0.0 K/mm3 02/20/20 08:24 Blast Cells # 0.0 K/mm3 02/20/20 08:24 WBC Morphology Not Reportable 02/20/20 08:24 Hypersegmented Neuts Not Reportable 02/20/20 08:24 Hyposegmented Neuts Not Reportable 02/20/20 08:24 Hypogranular Neuts Not Reportable 02/20/20 08:24 Smudge Cells Not Reportable 02/20/20 08:24 Toxic Granulation Not Reportable 02/20/20 08:24 Toxic Vacuolation Not Reportable 02/20/20 08:24 Dohle Bodies Not Reportable 02/20/20 08:24 Pelger-Huet Anomaly Not Reportable 02/20/20 08:24 Lata Rods Not Reportable 02/20/20 08:24 Platelet Estimate Consistent w auto 02/20/20 08:24 Clumped Platelets Rare 02/20/20 08:24 Plt Clumps, EDTA Not Reportable 02/20/20 08:24 Large Platelets Few 02/20/20 08:24 Giant Platelets Not Reportable 02/20/20 08:24 Platelet Satelliting Not Reportable 02/20/20 08:24 Plt Morphology Comment Not Reportable 02/20/20 08:24 RBC Morphology Not Reportable 02/20/20 08:24 Dimorphic RBCs Not Reportable 02/20/20 08:24 Polychromasia Not Reportable 02/20/20 08:24 Hypochromasia Not Reportable 02/20/20 08:24 Poikilocytosis Not Reportable 02/20/20 08:24 Anisocytosis 1+ 02/20/20 08:24 Microcytosis Not Reportable 02/20/20 08:24 Macrocytosis 1+ 02/20/20 08:24 Spherocytes Not Reportable 02/20/20 08:24 Pappenheimer Bodies Not Reportable 02/20/20 08:24 Sickle Cells Not Reportable 02/20/20 08:24 Target Cells Not Reportable 02/20/20 08:24 Tear Drop Cells Not Reportable 02/20/20 08:24 Ovalocytes Not Reportable 02/20/20 08:24 Helmet Cells Not Reportable 02/20/20 08:24 [place] Bodies Not Reportable 02/20/20 08:24 [place] Rings Not Reportable 02/20/20 08:24 Leonidas Cells Not Reportable 02/20/20 08:24 Bite Cells Not Reportable 02/20/20 08:24 Crenated Cell Not Reportable 02/20/20 08:24 Elliptocytes Not Reportable 10/16/20 08:24 Acanthocytes (Spur) Not Reportable 02/20/20 08:24 Rouleaux Not Reportable 02/20/20 08:24 Hemoglobin C Crystals Not Reportable 02/20/20 08:24 Schistocytes Not Reportable 02/20/20 08:24 Malaria parasites Not Reportable 02/20/20 08:24 Gideon Bodies Not Reportable 02/20/20 08:24 Hem Pathologist Commnt No 02/20/20 08:24 APTT 33.9 Sec. (24.2-36.6) 01/26/20 16:30 PT 14.4 Sec. (12.2-14.9) 02/02/20 05:25 INR 1.11 (0.87-1.13) 02/02/20 05:25 Heparin Anti-Xa Level 0.74 U.I./ml (0.3-0.7) H 01/28/20 08:50 ABG pH 7.463 pH Units (7.350-7.450) H 02/13/20 04:30 POC ABG pCO2 38.5 mmHg (32.0-48.0) 02/11/20 03:43 ABG pCO2 39.6 mm Hg 02/13/20 04:30 POC ABG pO2 112.6 mmHg (83-108) H 02/11/20 03:43 ABG pO2 98.4 mm Hg (80.0-90.0) H 02/13/20 04:30 POC ABG HCO3 28 02/11/20 03:43 ABG HCO3 27.7 mmol/L (20.0-26.0) H 02/13/20 04:30 ABG O2 Saturation 97.7 % (95.0-99.0) 02/13/20 04:30 ABG O2 Content 19.3 (0.0-44) 02/13/20 04:30 POC ABG Base Excess 4.2 02/11/20 03:43 ABG Base Excess 3.7 mmol/L (-2.0-3.0) H 02/13/20 04:30 ABG Hemoglobin 14.4 gm/dl (12.0-16.0) 02/13/20 04:30 ABG Oxyhemoglobin 96.7 (94-98) 02/09/20 03:04 ABG Carboxyhemoglobin 1.8 % (0.0-5.0) 02/13/20 04:30 ABG Methemoglobin 0.6 % (0.0-1.5) 02/13/20 04:30 ABG Sodium 138.5 mmol/L (136.0-145.0) 02/11/20 03:43 ABG Potassium 3.4 mmol/L (3.40-4.50) 02/11/20 03:43 ABG Chloride 107.0 mmol/L (98-107) 02/11/20 03:43 ABG Glucose 154 mg/dL (65-95) H 02/11/20 03:43 Oxyhemoglobin 95.3 % (95.0-99.0) 02/13/20 04:30 Carboxyhemoglobin TNR 02/08/20 03:55 FiO2 25 % 02/13/20 04:30 Sodium 134 mmol/L (137-145) L 02/20/20 08:24 Potassium 4.1 mmol/L (3.6-5.0) 02/20/20 08:24 Chloride 104.1 mmol/L (98-107) 02/20/20 08:24 Carbon Dioxide 23 mmol/L (22-30) 02/20/20 08:24 Anion Gap 11 mmol/L 02/20/20 08:24 BUN 17 mg/dL (7-17) 02/20/20 08:24 Creatinine 0.3 mg/dL (0.6-1.2) L 02/20/20 08:24 Estimated GFR > 60 ml/min 02/20/20 08:24 BUN/Creatinine Ratio 57 % 02/20/20 08:24 Glucose 136 mg/dL (65-100) H 02/20/20 08:24 POC Glucose 159 (70-105) H 02/21/20 05:34 Hemoglobin A1c 5.3 % (4-6) 01/11/20 00:45 Lactic Acid 1.30 mmol/L (0.7-2.0) 01/26/20 23:27 Calcium 8.0 mg/dL (8.4-10.2) L 02/20/20 08:24 Phosphorus 2.30 mg/dL (2.5-4.5) L 02/03/20 05:14 Magnesium 2.00 mg/dL (1.7-2.3) 02/16/20 05:09 Total Bilirubin 0.20 mg/dL (0.1-1.2) 02/13/20 04:45 AST 29 units/L (5-40) 02/13/20 04:45 ALT 38 units/L (7-56) 02/13/20 04:45 Alkaline Phosphatase 109 units/L (35-129) 02/13/20 04:45 C-Reactive Protein 14.80 mg/dL (0.00-1.30) H 01/29/20 Unknown Total Protein 4.2 g/dL (6.3-8.2) L 02/13/20 04:45 Albumin 2.0 g/dL (3.9-5) L 02/13/20 04:45 Albumin/Globulin Ratio 0.9 % 02/13/20 04:45 TSH 2.440 mlU/mL (0.270-4.200) 01/10/20 10:10 Procalcitonin 1.86 ng/mL (<0.15) 01/29/20 Unknown Arterial Blood Glucose 154 mg/dL (65-95) H 02/11/20 03:43 Arterial Blood Ionized Calcium 4.6 mg/dL (4.6-5.3) 02/11/20 03:43 Urine Color [place] (Yellow) 01/08/20 Unknown Urine Turbidity Cloudy (Clear) 01/08/20 Unknown Urine pH 5.0 (5.0-7.0) 01/08/20 Unknown Ur Specific [place] 1.018 (1.003-1.030) 01/08/20 Unknown Urine Protein 30 mg/dl mg/dL (Negative) 01/08/20 Unknown Urine Glucose (UA) Neg mg/dL (Negative) 01/08/20 Unknown Urine Ketones Neg mg/dL (Negative) 01/08/20 Unknown Urine Blood Mod (Negative) 01/08/20 Unknown Urine Nitrite Neg (Negative) 01/08/20 Unknown Urine Bilirubin Neg (Negative) 01/08/20 Unknown Urine Urobilinogen < 2.0 mg/dL (<2.0) 01/08/20 Unknown Ur Leukocyte Esterase Sm (Negative) 01/08/20 Unknown Urine WBC (Auto) 11.0 /HPF (0.0-6.0) H 01/08/20 Unknown Urine RBC (Auto) 7.0 /HPF (0.0-6.0) 01/08/20 Unknown U Epithel Cells (Auto) < 1.0 /HPF (0-13.0) 01/08/20 Unknown Urine Bacteria (Auto) 1+ /HPF (Negative) 01/08/20 Unknown Urine Mucus 2+ /HPF 01/08/20 Unknown Urine Yeast (Budding) 1+ /HPF 01/08/20 Unknown Vancomycin Trough 7.9 ug/mL (5.0-20.0) 01/17/20 16:04 Coronavirus (PCR) Negative (Negative) 02/10/20 10:06 Blood Type A POSITIVE 02/11/20 08:22 Antibody Screen Negative 02/11/20 08:22 Crossmatch See Detail 02/11/20 08:22 Mejía/IV: Voiding Method Indwelling Catheter IV Catheter Type [Left Wrist] INT / Saline Lock IV Catheter Type [Left Upper PICC Line arm] IV Catheter Type [Right Upper Mid-line arm] IV Catheter Type [Right Peripheral IV Forearm] Active Medications - Current Medications Current Medications: Generic Name Dose Route Start Last Admin Trade Name Freq PRN Reason Stop Dose Admin Acetaminophen 650 mg 01/08/20 23:14 01/18/20 06:03 Tylenol PO 650 mg Q4H PRN Administration Pain MILD(1-3)/Fever >100.5/GARCIA Lipase/Protease/Amylase 1 each 01/17/20 08:[address] 10,500 Unit FEEDTUBE PRN PRN For Clogged Feeding Tube Atorvastatin Calcium 10 mg 01/09/20 22:00 02/20/20 21:18 Atorvastatin PO 10 mg QHS BRO Administration Dextrose 0 ml 01/08/20 23:14 02/10/20 17:18 D50w (25gm) Syringe IV 10 ml Q30MIN PRN Administration Hypoglycemia Protocol Donepezil HCl 10 mg 01/09/20 22:00 02/20/20 21:18 Aricept PO 10 mg QHS BRO Administration Famotidine 20 mg 01/27/20 10:00 02/20/20 21:18 Pepcid PO 20 mg BID BRO Administration Ferrous Sulfate 308 mg 02/09/20 12:00 02/20/20 11:30 Ferrous Sulfate FEEDTUBE 308 mg DAILY BRO Administration Fluticasone Propionate 100 mcg 01/25/20 20:00 01/26/20 06:09 Flonase NS 100 mcg QDAY PRN Administration Nasal Congestion Glycopyrrolate 2 mg 02/18/20 22:00 02/20/20 21:19 Glycopyrrolate PO 2 mg BID BRO Administration Heparin Sodium (Porcine) 5,000 unit 01/28/20 10:00 02/20/20 21:20 Heparin SUB-Q 5,000 unit Q12HR BRO Administration Hydrophilic Ointment 1 applic 01/28/20 10:57 Vaseline Lip Therapy TP Q2HR PRN Dry Lips Piperacillin Sod/Tazobactam Sod 4.5 gm in 100 mls @ 200 mls/hr 01/19/20 14:00 02/21/20 05:35 Zosyn/Ns 4.5gm/100ml IV 02/27/20 22:29 200 mls/hr Q8HR BRO Administration Protocol Norepinephrine 4 mg in 250 mls @ 7.5 mls/hr 02/19/20 22:00 Levophed Drip 4 Mg/Ns 250 Ml IV TITR BRO Protocol 2 MCG/MIN Sodium Chloride 250 mls @ 5 mls/hr 02/21/20 05:45 Nacl 0.9% 250ml IV 02/23/20 07:44 KVO ONE Insulin Human Regular 0 unit 01/27/20 12:00 02/21/20 05:36 Humulin R SUB-Q 3 unit Q6HR BRO Administration Protocol Loperamide HCl 2 mg 02/14/20 12:00 02/14/20 16:48 Loperamide PO 2 mg Q2H PRN Administration Diarrhea Magnesium Hydroxide 30 ml 01/08/20 23:14 Milk Of Magnesia PO Q4H PRN Constipation Metoprolol Tartrate 12.5 mg 02/18/20 14:00 02/20/20 21:19 Metoprolol PO 12.5 mg BID BRO Administration Mirtazapine 15 mg 01/09/20 22:00 02/20/20 21:19 Remeron PO 15 mg QHS BRO Administration Multi-Ingred Cream/Lotion/Oil/Oint 1 applic 01/28/20 10:57 Artificial Tears Ophth Oint OU Q4HR PRN Dry Eye(s) Multivitamins 5 ml 02/09/20 12:00 02/20/20 11:29 Centrum Liq PO 5 ml QDAY BRO Administration Ondansetron HCl 4 mg 01/08/20 23:14 Zofran IV Q8H PRN Nausea And Vomiting Oxycodone/Acetaminophen 1 tab 02/17/20 13:28 Percocet 5/325 PO Q4H PRN Pain, Moderate (4-6) Scopolamine 1 each 02/05/20 10:00 02/20/20 11:32 Transderm-Scop TD 1 each Q3D BRO Administration Simple Syrup 15 ml 01/17/20 08:37 Simple Syrup FEEDTUBE PRN PRN Hypoglycemia Simple Syrup 30 ml 01/17/20 08:37 02/11/20 23:43 Simple Syrup FEEDTUBE 30 ml PRN PRN Administration Hypoglycemia Sodium Bicarbonate 325 mg 01/17/20 08:37 Sodium Bicarbonate FEEDTUBE PRN PRN For Clogged Feeding Tube Sodium Chloride 10 ml 01/09/20 10:00 02/20/20 23:12 Sodium Chloride Flush Syringe 10 Ml IV Not Given BID BRO Sodium Chloride 10 ml 01/08/20 23:14 Sodium Chloride Flush Syringe 10 Ml IV PRN PRN LINE FLUSH Trazodone HCl 25 mg 01/09/20 22:00 02/20/20 21:18 Desyrel PO 25 mg QHS BRO Administration Nutrition/Malnutrition Assess - Dietary Evaluation Nutrition/Malnutrition Findings: Nutrition Notes Start: 01/09/20 12:13 Freq: Status: Active Protocol: Document 02/20/20 10:54 AL (Rec: 02/20/20 10:58 AL [email or web address]) Co-Sign 02/20/20 10:54 Nutrition Notes Initial or Follow up Reassessment Current Diagnosis Decubitus(Pressure Ulcer), Diabetes,Sepsis Other Pertinent Diagnosis UTI, dementia, PE, Sacral wound Current Diet Vital AF 1.2 at 50ml/hr Labs/Tests Reviewed Pertinent Medications Reviewed Height 5 ft 2 in Weight 71 kg [place] Body Weight (kg) 50.00 BMI 28.6 Weight change and time frame Wt change noted. Pt has edema. Weight Status Overweight Subjective/Other Information RD FU for stable TF. TF currently running at 50 ml/hr (goal rate). Percent of energy/protein needs met: 91%/100% Burn Absent Trauma Absent GI Symptoms Diarrhea Current % PO Negligible Minimum of two criteria Yes Fluid Accumulation Moderate to Severe (severe) Reduced Glazing Superintendent Strength Measurably Reduced (severe) #3 Nutrition Diagnosis Malnutrition Diagnosis Progress(for reassessment Continues documentation) #2 Nutrition Diagnosis Inadequate oral intake Diagnosis Progress(for reassessment Continues documentation) #1 Nutrition Diagnosis Increased nutrient needs ( specify in comment below) Comments: protein Diagnosis Progress(for reassessment Continues documentation) Is patient on ventilator? Yes Is Patient Ambulatory and/or Out of Bed No REE-([place]-St. Jeor-confined to bed) 1425.768 Kcal/Kg value to use for calculation 22 Approximate Energy Requirements Using 1562 kcal/Kg Calculation Used for Recommendations Kcal/kg Additional Notes Pro: 81-98 g (1.25-1.5 g/kg) Fluid: 1ml/kcal Nutrition Intervention Change Diet Order: Continue Nutrition Support: Vital AF 1.2 at 50ml/hr Flush 250ml q4h per MD Kcal 1,440 Protein (gm) 90 Fluid (mL) 973 Goal #1 Meet at least 80% of kcal and protein needs via TF Goal #2 TF tolerance Goal #3 Wound healing Anticipated Discharge Needs: Continue TF Follow-Up By: 02/24/20 Additional Comments F/U for stable TF
[2020-02-21] MEDS: METOPROLOL TARTRATE 25 MG TAB PO SCH ×2 (10:00→21:00)
[2020-02-21] MEDS: MULTIVITAMINS 5 ML ORAL LIQUID PO SCH (10:00)
[2020-02-21] MEDS: FERROUS SULFATE 308 MG (62mg Elemental Iron) / 7 ML ELIXIR FEEDTUBE SCH (10:01)
[2020-02-21] MEDS: FAMOTIDINE 20 MG TAB PO SCH ×2 (10:01→21:03)
[2020-02-21] MEDS: HEPARIN 5,000 UNIT/1 ML VIAL SUB-Q SCH ×2 (10:01→21:01)
[2020-02-21] MEDS: GLYCOPYRROLATE 2 MG TAB PO SCH ×2 (10:01→21:03)
--- NOTE | 2020-02-21 14:23 | Progress Note ---
Assessment and Plan Severe sepsis with shock. Left lung atelectasis. Left pleural effusion. Acute hypoxemic respiratory failure. Acute possibly on chronic encephalopathy. History of diabetes. Urinary tract infection. History of pulmonary embolism, diagnosed several months ago. Sacral decubitus ulcer. Dementia. Anemia that is normocytic. - continue daily SAT's and SBT's as tolerated - continue scopolamine for secretions - continue to rest on AC qhs for now - continue care as below otherwise; - complete AB's per ID rec's (Zosyn) - continue to wean supplemental oxygen for target O2 sat's > 92% acutely - VAP bundle addressed - continue lung protective strategies - continue bronchodilators with routine trach care and pulmonary hygiene per RT - wean per pulmonary driven protocols otherwise - continue accuchecks with glycemic control per SSI (While critically ill target blood glucose of 140-180 mg/dL; avoid hypoglycemia) - sedation prn for target RASS 0 to -1 - avoid nephrotoxins, renally dose all medications - continue to avoid benzodiazepine's, reduce the possibility of delirium - prn analgesia per CPOT score - Maintenance of sleep-wake cycle, avoid delirium - continue enteral nutritional support at goal rate as tolerated - G.I. & VTE prophylaxis with famotidine and heparin - PT/OT/ROM exercises - continue mobility protocols for pressure ulcer prophylaxis - Monitor hemodynamics closely - continue other care per attending / other consultants - discharge planning ongoing concurrently .... Re-evaluate in am & prn CONDITION: CRITICAL PROGNOSIS: GUARDED CODE STATUS: FULL CODE The high probability of a clinically significant, sudden or life-threatening deterioration of the [respiratory, cardiovascular & neurologic] system(s) required my full and direct attention, intervention and personal management. The aggregate critical care time was [34] minutes without overlap. Time includes spent on; [x] Data Review and interpretation [x] Patient assessment and monitoring of vital signs [x] Documentation [x] Medication orders and management Subjective Date of service: 02/21/20 Principal diagnosis: Septic Shock; S/P Cardiac Arrest; Ac. hypoxemic resp failure; UTI Interval history: Patient is seen today for: Severe sepsis with shock; S/P Cardiac Arrest; L. lung atelectasis / L. pleural effusion; Acute hypoxemic respiratory failure; Acute possibly on chronic encephalopathy; DM II; UTI; VTE Seen and examined at bedside; 24hour events reviewed; nursing and respiratory care staff consulted; no adverse overnight events reported to me; resting peacefully in bed; weaning tenuously Objective Vital Signs - 12hr 02/21/20 02/21/20 02/21/20 02:30 02:36 03:00 Temperature Pulse Rate 114 H 96 H Pulse Rate [ From Monitor] Respiratory 23 25 H Rate Blood Pressure 125/60 102/55 O2 Sat by Pulse 100 100 Oximetry O2 Sat by Pulse 100 Oximetry [ Assessment] 02/21/20 02/21/20 02/21/20 03:30 03:41 04:00 Temperature 98.8 F Pulse Rate 95 H 95 H Pulse Rate [ 72 From Monitor] Respiratory 20 24 Rate Blood Pressure 119/56 119/56 O2 Sat by Pulse 100 100 Oximetry O2 Sat by Pulse Oximetry [ Assessment] 02/21/20 02/21/20 02/21/20 04:08 04:30 05:00 Temperature Pulse Rate 95 H 91 H 83 Pulse Rate [ From Monitor] Respiratory 22 17 Rate Blood Pressure 119/50 110/46 99/40 O2 Sat by Pulse 100 100 100 Oximetry O2 Sat by Pulse Oximetry [ Assessment] 02/21/20 02/21/20 02/21/20 05:30 06:00 06:30 Temperature Pulse Rate 93 H 106 H 98 H Pulse Rate [ From Monitor] Respiratory 21 21 22 Rate Blood Pressure 102/48 96/54 114/54 O2 Sat by Pulse 100 100 100 Oximetry O2 Sat by Pulse Oximetry [ Assessment] 02/21/20 02/21/20 02/21/20 07:00 07:30 07:58 Temperature 98.3 F Pulse Rate 99 H 104 H Pulse Rate [ From Monitor] Respiratory 17 21 Rate Blood Pressure 93/51 93/51 O2 Sat by Pulse 100 100 Oximetry O2 Sat by Pulse Oximetry [ Assessment] 02/21/20 02/21/20 02/21/20 08:00 08:13 08:14 Temperature Pulse Rate 113 H 99 H Pulse Rate [ From Monitor] Respiratory 27 H Rate Blood Pressure 107/71 107/71 O2 Sat by Pulse 100 100 Oximetry O2 Sat by Pulse 100 Oximetry [ Assessment] 02/21/20 02/21/20 02/21/20 08:30 09:00 09:30 Temperature Pulse Rate 93 H 98 H 107 H Pulse Rate [ From Monitor] Respiratory 19 21 24 Rate Blood Pressure 107/71 119/72 112/64 O2 Sat by Pulse 100 100 100 Oximetry O2 Sat by Pulse Oximetry [ Assessment] 02/21/20 02/21/20 02/21/20 10:00 10:30 11:00 Temperature Pulse Rate 105 H 96 H 79 Pulse Rate [ From Monitor] Respiratory 21 25 H 24 Rate Blood Pressure 111/66 114/65 100/50 O2 Sat by Pulse 100 100 100 Oximetry O2 Sat by Pulse Oximetry [ Assessment] 02/21/20 02/21/20 02/21/20 11:30 12:00 12:19 Temperature 98.2 F Pulse Rate 93 H 89 96 H Pulse Rate [ From Monitor] Respiratory 22 21 Rate Blood Pressure 105/72 125/62 125/62 O2 Sat by Pulse 100 100 100 Oximetry O2 Sat by Pulse Oximetry [ Assessment] 02/21/20 02/21/20 02/21/20 12:30 13:00 13:30 Temperature Pulse Rate 92 H 98 H 92 H Pulse Rate [ From Monitor] Respiratory 23 17 22 Rate Blood Pressure 105/72 125/62 101/50 O2 Sat by Pulse 100 100 100 Oximetry O2 Sat by Pulse Oximetry [ Assessment] Constitutional: no acute distress, alert, other (elderly chronically ill looking female trach to [facility] [place]) Eyes: non-icteric ENT: oropharynx moist, other (trach) Neck: supple, no lymphadenopathy Effort: normal Ascultation: Bilateral: diminished breath sounds, rhonchi Percussion: Bilateral: not dull Cardiovascular: regular rate and rhythm, other (S1,S2) Gastrointestinal: normoactive bowel sounds, soft, non-tender, other (PEG in place) Integumentary: decubitus ulcer Extremities: no cyanosis, pulses normal, no ischemia or petechiae, edema, other (bilateral upper extremity edema) Neurologic: pupils equal and round, other (awake and alert, not obeying commands) Psychiatric: other (Unable to assess secondary to mental status) CBC and BMP: 02/20/20 08:24 02/20/20 08:24 ABG, PT/INR, D-dimer: ABG ABG pH 7.463 pH Units (7.350-7.450) H 02/13/20 04:30 POC ABG pCO2 38.5 mmHg (32.0-48.0) 02/11/20 03:43 ABG pCO2 39.6 mm Hg 02/13/20 04:30 POC ABG pO2 112.6 mmHg (83-108) H 02/11/20 03:43 ABG pO2 98.4 mm Hg (80.0-90.0) H 02/13/20 04:30 POC ABG HCO3 28 02/11/20 03:43 ABG O2 Saturation 97.7 % (95.0-99.0) 02/13/20 04:30 PT/INR, D-dimer PT 14.4 Sec. (12.2-14.9) 02/02/20 05:25 INR 1.11 (0.87-1.13) 02/02/20 05:25 Abnormal lab findings: Abnormal Labs 01/08/20 01/08/20 01/08/20 16:29 16:29 16:29 WBC 13.5 H RBC Hgb Hct MCHC RDW 15.5 H Plt Count MCH Lymph % (Auto) Lymph # Lymph # (Auto) Seg Neutrophils % Seg Neuts % (Manual) 85.0 H Lymphocytes % (Manual) 11.0 L Seg Neutrophils # Seg Neutrophils # Man 11.5 H Basophils % (Manual) Nucleated RBC % Lymphocytes # (Manual) Monocytes # (Manual) Basophils # (Manual) PT INR Heparin Anti-Xa Level POC ABG pO2 ABG pH ABG Hemoglobin ABG Oxyhemoglobin ABG pO2 ABG HCO3 ABG O2 Saturation ABG Base Excess ABG Potassium ABG Chloride ABG Glucose Oxyhemoglobin Sodium 161 H* Potassium Chloride 125.5 H Carbon Dioxide 20 L BUN 30 H Creatinine Glucose 115 H POC Glucose Lactic Acid 2.20 H* Calcium 7.9 L AST 48 H Phosphorus Total Protein Albumin 2.5 L C-Reactive Protein Arterial Blood Glucose Arterial Blood Ionized Calcium Urine WBC (Auto) Crossmatch 01/08/20 01/08/20 01/08/20 19:02 23:30 Unknown WBC RBC Hgb Hct MCHC RDW Plt Count MCH Lymph % (Auto) Lymph # Lymph # (Auto) Seg Neutrophils % Seg Neuts % (Manual) Lymphocytes % (Manual) Seg Neutrophils # Seg Neutrophils # Man Basophils % (Manual) Nucleated RBC % Lymphocytes # (Manual) Monocytes # (Manual) Basophils # (Manual) PT INR Heparin Anti-Xa Level POC ABG pO2 ABG pH ABG Hemoglobin ABG Oxyhemoglobin ABG pO2 ABG HCO3 ABG O2 Saturation ABG Base Excess ABG Potassium ABG Chloride ABG Glucose Oxyhemoglobin Sodium Potassium Chloride Carbon Dioxide BUN Creatinine Glucose POC Glucose Lactic Acid 2.10 H* 2.50 H* Calcium AST Phosphorus Total Protein Albumin C-Reactive Protein Arterial Blood Glucose Arterial Blood Ionized Calcium Urine WBC (Auto) 11.0 H Crossmatch 01/09/20 01/09/20 01/09/20 00:19 00:54 05:52 WBC 13.5 H RBC 3.02 L Hgb 9.0 L D Hct 27.4 L D MCHC RDW Plt Count MCH Lymph % (Auto) 9.1 L Lymph # Lymph # (Auto) Seg Neutrophils % 87.6 H Seg Neuts % (Manual) Lymphocytes % (Manual) Seg Neutrophils # 11.8 H Seg Neutrophils # Man Basophils % (Manual) Nucleated RBC % Lymphocytes # (Manual) Monocytes # (Manual) Basophils # (Manual) PT INR Heparin Anti-Xa Level POC ABG pO2 ABG pH ABG Hemoglobin ABG Oxyhemoglobin ABG pO2 ABG HCO3 ABG O2 Saturation ABG Base Excess ABG Potassium ABG Chloride ABG Glucose Oxyhemoglobin Sodium Potassium Chloride Carbon Dioxide BUN Creatinine Glucose POC Glucose 118 H 116 H Lactic Acid Calcium AST Phosphorus Total Protein Albumin C-Reactive Protein Arterial Blood Glucose Arterial Blood Ionized Calcium Urine WBC (Auto) Crossmatch 01/09/20 01/09/20 01/09/20 05:52 05:52 13:03 WBC RBC Hgb Hct MCHC RDW Plt Count MCH Lymph % (Auto) Lymph # Lymph # (Auto) Seg Neutrophils % Seg Neuts % (Manual) Lymphocytes % (Manual) Seg Neutrophils # Seg Neutrophils # Man Basophils % (Manual) Nucleated RBC % Lymphocytes # (Manual) Monocytes # (Manual) Basophils # (Manual) PT 17.1 H INR 1.36 H Heparin Anti-Xa Level POC ABG pO2 ABG pH ABG Hemoglobin ABG Oxyhemoglobin ABG pO2 ABG HCO3 ABG O2 Saturation ABG Base Excess ABG Potassium ABG Chloride ABG Glucose Oxyhemoglobin Sodium 162 H* Potassium 3.0 L D Chloride 128.3 H Carbon Dioxide BUN 23 H Creatinine Glucose POC Glucose 55 L Lactic Acid Calcium 7.6 L AST Phosphorus Total Protein Albumin C-Reactive Protein Arterial Blood Glucose Arterial Blood Ionized Calcium Urine WBC (Auto) Crossmatch 01/09/20 01/09/20 01/09/20 21:22 21:50 22:28 WBC RBC Hgb Hct MCHC RDW Plt Count MCH Lymph % (Auto) Lymph # Lymph # (Auto) Seg Neutrophils % Seg Neuts % (Manual) Lymphocytes % (Manual) Seg Neutrophils # Seg Neutrophils # Man Basophils % (Manual) Nucleated RBC % Lymphocytes # (Manual) Monocytes # (Manual) Basophils # (Manual) PT INR Heparin Anti-Xa Level POC ABG pO2 ABG pH ABG Hemoglobin ABG Oxyhemoglobin ABG pO2 ABG HCO3 ABG O2 Saturation ABG Base Excess ABG Potassium ABG Chloride ABG Glucose Oxyhemoglobin Sodium 159 H Potassium 5.1 H D Chloride 128.5 H Carbon Dioxide 16 L BUN 23 H Creatinine Glucose 51 L POC Glucose 52 L 106 H Lactic Acid Calcium 8.2 L AST Phosphorus Total Protein Albumin C-Reactive Protein Arterial Blood Glucose Arterial Blood Ionized Calcium Urine WBC (Auto) Crossmatch 01/10/20 01/10/20 01/10/20 05:23 09:11 10:10 WBC 13.4 H RBC Hgb Hct MCHC RDW Plt Count MCH Lymph % (Auto) 7.2 L Lymph # 1.0 L Lymph # (Auto) Seg Neutrophils % 90.0 H Seg Neuts % (Manual) Lymphocytes % (Manual) Seg Neutrophils # 12.0 H Seg Neutrophils # Man Basophils % (Manual) Nucleated RBC % Lymphocytes # (Manual) Monocytes # (Manual) Basophils # (Manual) PT INR Heparin Anti-Xa Level POC ABG pO2 ABG pH ABG Hemoglobin ABG Oxyhemoglobin ABG pO2 ABG HCO3 ABG O2 Saturation ABG Base Excess ABG Potassium ABG Chloride ABG Glucose Oxyhemoglobin Sodium 155 H Potassium Chloride 122.8 H Carbon Dioxide 21 L BUN 19 H Creatinine Glucose POC Glucose 120 H Lactic Acid Calcium AST Phosphorus Total Protein Albumin C-Reactive Protein Arterial Blood Glucose Arterial Blood Ionized Calcium Urine WBC (Auto) Crossmatch 01/10/20 01/10/20 01/10/20 11:47 11:57 17:09 WBC RBC Hgb Hct MCHC RDW Plt Count MCH Lymph % (Auto) Lymph # Lymph # (Auto) Seg Neutrophils % Seg Neuts % (Manual) Lymphocytes % (Manual) Seg Neutrophils # Seg Neutrophils # Man Basophils % (Manual) Nucleated RBC % Lymphocytes # (Manual) Monocytes # (Manual) Basophils # (Manual) PT INR Heparin Anti-Xa Level POC ABG pO2 ABG pH ABG Hemoglobin ABG Oxyhemoglobin ABG pO2 ABG HCO3 ABG O2 Saturation ABG Base Excess ABG Potassium ABG Chloride ABG Glucose Oxyhemoglobin Sodium 153 H Potassium Chloride 118.3 H Carbon Dioxide 20 L BUN 19 H Creatinine Glucose 113 H POC Glucose 142 H 125 H Lactic Acid Calcium AST Phosphorus Total Protein Albumin C-Reactive Protein Arterial Blood Glucose Arterial Blood Ionized Calcium Urine WBC (Auto) Crossmatch 01/10/20 01/10/20 01/11/20 20:27 22:00 00:45 WBC RBC Hgb Hct MCHC RDW Plt Count MCH Lymph % (Auto) Lymph # Lymph # (Auto) Seg Neutrophils % Seg Neuts % (Manual) Lymphocytes % (Manual) Seg Neutrophils # Seg Neutrophils # Man Basophils % (Manual) Nucleated RBC % Lymphocytes # (Manual) Monocytes # (Manual) Basophils # (Manual) PT INR Heparin Anti-Xa Level POC ABG pO2 ABG pH ABG Hemoglobin ABG Oxyhemoglobin ABG pO2 ABG HCO3 ABG O2 Saturation ABG Base Excess ABG Potassium ABG Chloride ABG Glucose Oxyhemoglobin Sodium 153 H 154 H Potassium 3.3 L 3.2 L Chloride 117.0 H 118.9 H Carbon Dioxide 20 L BUN Creatinine Glucose POC Glucose 136 H Lactic Acid Calcium 8.3 L 8.0 L AST Phosphorus Total Protein Albumin C-Reactive Protein Arterial Blood Glucose Arterial Blood Ionized Calcium Urine WBC (Auto) Crossmatch 01/11/20 01/11/20 01/11/20 07:06 08:03 11:54 WBC RBC Hgb Hct MCHC RDW Plt Count MCH Lymph % (Auto) Lymph # Lymph # (Auto) Seg Neutrophils % Seg Neuts % (Manual) Lymphocytes % (Manual) Seg Neutrophils # Seg Neutrophils # Man Basophils % (Manual) Nucleated RBC % Lymphocytes # (Manual) Monocytes # (Manual) Basophils # (Manual) PT INR Heparin Anti-Xa Level POC ABG pO2 ABG pH ABG Hemoglobin ABG Oxyhemoglobin ABG pO2 ABG HCO3 ABG O2 Saturation ABG Base Excess ABG Potassium ABG Chloride ABG Glucose Oxyhemoglobin Sodium 151 H Potassium Chloride 118.7 H Carbon Dioxide 21 L BUN Creatinine Glucose 107 H POC Glucose 118 H 164 H Lactic Acid Calcium 8.3 L AST Phosphorus Total Protein Albumin C-Reactive Protein Arterial Blood Glucose Arterial Blood Ionized Calcium Urine WBC (Auto) Crossmatch 01/11/20 01/12/20 01/12/20 16:28 00:19 05:40 WBC RBC Hgb Hct MCHC RDW Plt Count MCH Lymph % (Auto) Lymph # Lymph # (Auto) Seg Neutrophils % Seg Neuts % (Manual) Lymphocytes % (Manual) Seg Neutrophils # Seg Neutrophils # Man Basophils % (Manual) Nucleated RBC % Lymphocytes # (Manual) Monocytes # (Manual) Basophils # (Manual) PT INR Heparin Anti-Xa Level POC ABG pO2 ABG pH ABG Hemoglobin ABG Oxyhemoglobin ABG pO2 ABG HCO3 ABG O2 Saturation ABG Base Excess ABG Potassium ABG Chloride ABG Glucose Oxyhemoglobin Sodium 148 H Potassium Chloride 111.6 H Carbon Dioxide 19 L BUN Creatinine Glucose 128 H POC Glucose 132 H 179 H Lactic Acid Calcium 8.2 L AST Phosphorus Total Protein Albumin C-Reactive Protein Arterial Blood Glucose Arterial Blood Ionized Calcium Urine WBC (Auto) Crossmatch 01/12/20 01/12/20 01/12/20 06:17 11:37 17:21 WBC RBC Hgb Hct MCHC RDW Plt Count MCH Lymph % (Auto) Lymph # Lymph # (Auto) Seg Neutrophils % Seg Neuts % (Manual) Lymphocytes % (Manual) Seg Neutrophils # Seg Neutrophils # Man Basophils % (Manual) Nucleated RBC % Lymphocytes # (Manual) Monocytes # (Manual) Basophils # (Manual) PT INR Heparin Anti-Xa Level POC ABG pO2 ABG pH ABG Hemoglobin ABG Oxyhemoglobin ABG pO2 ABG HCO3 ABG O2 Saturation ABG Base Excess ABG Potassium ABG Chloride ABG Glucose Oxyhemoglobin Sodium Potassium Chloride Carbon Dioxide BUN Creatinine Glucose POC Glucose 140 H 142 H 133 H Lactic Acid Calcium AST Phosphorus Total Protein Albumin C-Reactive Protein Arterial Blood Glucose Arterial Blood Ionized Calcium Urine WBC (Auto) Crossmatch 01/12/20 01/13/20 01/13/20 23:14 05:26 07:00 WBC RBC Hgb Hct MCHC RDW Plt Count MCH Lymph % (Auto) Lymph # Lymph # (Auto) Seg Neutrophils % Seg Neuts % (Manual) Lymphocytes % (Manual) Seg Neutrophils # Seg Neutrophils # Man Basophils % (Manual) Nucleated RBC % Lymphocytes # (Manual) Monocytes # (Manual) Basophils # (Manual) PT INR Heparin Anti-Xa Level POC ABG pO2 ABG pH ABG Hemoglobin ABG Oxyhemoglobin ABG pO2 ABG HCO3 ABG O2 Saturation ABG Base Excess ABG Potassium ABG Chloride ABG Glucose Oxyhemoglobin Sodium Potassium Chloride 110.0 H Carbon Dioxide BUN Creatinine Glucose 139 H POC Glucose 135 H 162 H Lactic Acid Calcium 7.8 L AST Phosphorus Total Protein Albumin C-Reactive Protein Arterial Blood Glucose Arterial Blood Ionized Calcium Urine WBC (Auto) Crossmatch 01/13/20 01/13/20 01/13/20 12:14 17:52 21:40 WBC RBC Hgb Hct MCHC RDW Plt Count MCH Lymph % (Auto) Lymph # Lymph # (Auto) Seg Neutrophils % Seg Neuts % (Manual) Lymphocytes % (Manual) Seg Neutrophils # Seg Neutrophils # Man Basophils % (Manual) Nucleated RBC % Lymphocytes # (Manual) Monocytes # (Manual) Basophils # (Manual) PT INR Heparin Anti-Xa Level POC ABG pO2 ABG pH ABG Hemoglobin ABG Oxyhemoglobin ABG pO2 ABG HCO3 ABG O2 Saturation ABG Base Excess ABG Potassium ABG Chloride ABG Glucose Oxyhemoglobin Sodium Potassium Chloride Carbon Dioxide BUN Creatinine Glucose POC Glucose 205 H 172 H 186 H Lactic Acid Calcium AST Phosphorus Total Protein Albumin C-Reactive Protein Arterial Blood Glucose Arterial Blood Ionized Calcium Urine WBC (Auto) Crossmatch 01/14/20 01/14/20 01/14/20 04:28 11:01 11:01 WBC 14.8 H RBC 3.20 L Hgb 9.5 L Hct 28.0 L MCHC RDW Plt Count MCH Lymph % (Auto) Lymph # Lymph # (Auto) Seg Neutrophils % Seg Neuts % (Manual) Lymphocytes % (Manual) Seg Neutrophils # Seg Neutrophils # Man Basophils % (Manual) Nucleated RBC % Lymphocytes # (Manual) Monocytes # (Manual) Basophils # (Manual) PT INR Heparin Anti-Xa Level POC ABG pO2 ABG pH ABG Hemoglobin ABG Oxyhemoglobin ABG pO2 ABG HCO3 ABG O2 Saturation ABG Base Excess ABG Potassium ABG Chloride ABG Glucose Oxyhemoglobin Sodium Potassium 3.2 L Chloride Carbon Dioxide BUN Creatinine 0.4 L Glucose POC Glucose 115 H Lactic Acid Calcium 8.0 L AST Phosphorus Total Protein Albumin C-Reactive Protein Arterial Blood Glucose Arterial Blood Ionized Calcium Urine WBC (Auto) Crossmatch 01/14/20 01/14/20 01/14/20 11:01 16:33 22:32 WBC RBC Hgb Hct MCHC RDW Plt Count MCH Lymph % (Auto) Lymph # Lymph # (Auto) Seg Neutrophils % Seg Neuts % (Manual) Lymphocytes % (Manual) Seg Neutrophils # Seg Neutrophils # Man Basophils % (Manual) Nucleated RBC % Lymphocytes # (Manual) Monocytes # (Manual) Basophils # (Manual) PT 15.8 H INR 1.23 H Heparin Anti-Xa Level POC ABG pO2 ABG pH ABG Hemoglobin ABG Oxyhemoglobin ABG pO2 ABG HCO3 ABG O2 Saturation ABG Base Excess ABG Potassium ABG Chloride ABG Glucose Oxyhemoglobin Sodium Potassium Chloride Carbon Dioxide BUN Creatinine Glucose POC Glucose 58 L 188 H Lactic Acid Calcium AST Phosphorus Total Protein Albumin C-Reactive Protein Arterial Blood Glucose Arterial Blood Ionized Calcium Urine WBC (Auto) Crossmatch 01/15/20 01/15/20 01/15/20 05:35 06:19 17:17 WBC RBC Hgb Hct MCHC RDW Plt Count MCH Lymph % (Auto) Lymph # Lymph # (Auto) Seg Neutrophils % Seg Neuts % (Manual) Lymphocytes % (Manual) Seg Neutrophils # Seg Neutrophils # Man Basophils % (Manual) Nucleated RBC % Lymphocytes # (Manual) Monocytes # (Manual) Basophils # (Manual) PT INR Heparin Anti-Xa Level POC ABG pO2 ABG pH ABG Hemoglobin ABG Oxyhemoglobin ABG pO2 ABG HCO3 ABG O2 Saturation ABG Base Excess ABG Potassium ABG Chloride ABG Glucose Oxyhemoglobin Sodium Potassium Chloride Carbon Dioxide BUN Creatinine 0.5 L Glucose 104 H POC Glucose 106 H 183 H Lactic Acid Calcium 7.8 L AST Phosphorus Total Protein Albumin C-Reactive Protein Arterial Blood Glucose Arterial Blood Ionized Calcium Urine WBC (Auto) Crossmatch 01/15/20 01/16/20 01/16/20 22:29 05:35 05:59 WBC 14.7 H RBC 3.04 L Hgb 9.0 L Hct 27.0 L MCHC RDW Plt Count MCH Lymph % (Auto) 9.1 L Lymph # Lymph # (Auto) Seg Neutrophils % 87.3 H Seg Neuts % (Manual) Lymphocytes % (Manual) Seg Neutrophils # 12.9 H Seg Neutrophils # Man Basophils % (Manual) Nucleated RBC % Lymphocytes # (Manual) Monocytes # (Manual) Basophils # (Manual) PT INR Heparin Anti-Xa Level POC ABG pO2 ABG pH ABG Hemoglobin ABG Oxyhemoglobin ABG pO2 ABG HCO3 ABG O2 Saturation ABG Base Excess ABG Potassium ABG Chloride ABG Glucose Oxyhemoglobin Sodium Potassium Chloride Carbon Dioxide BUN Creatinine Glucose POC Glucose 228 H 130 H Lactic Acid Calcium AST Phosphorus Total Protein Albumin C-Reactive Protein Arterial Blood Glucose Arterial Blood Ionized Calcium Urine WBC (Auto) Crossmatch 01/16/20 01/16/20 01/16/20 09:52 12:49 17:30 WBC RBC Hgb Hct MCHC RDW Plt Count MCH Lymph % (Auto) Lymph # Lymph # (Auto) Seg Neutrophils % Seg Neuts % (Manual) Lymphocytes % (Manual) Seg Neutrophils # Seg Neutrophils # Man Basophils % (Manual) Nucleated RBC % Lymphocytes # (Manual) Monocytes # (Manual) Basophils # (Manual) PT INR Heparin Anti-Xa Level POC ABG pO2 ABG pH ABG Hemoglobin ABG Oxyhemoglobin ABG pO2 ABG HCO3 ABG O2 Saturation ABG Base Excess ABG Potassium ABG Chloride ABG Glucose Oxyhemoglobin Sodium Potassium Chloride Carbon Dioxide BUN Creatinine Glucose POC Glucose 122 H 142 H 192 H Lactic Acid Calcium AST Phosphorus Total Protein Albumin C-Reactive Protein Arterial Blood Glucose Arterial Blood Ionized Calcium Urine WBC (Auto) Crossmatch 01/16/20 01/17/20 01/17/20 23:01 08:36 08:36 WBC 12.7 H RBC 2.98 L Hgb 8.9 L Hct 26.4 L MCHC RDW Plt Count MCH Lymph % (Auto) 8.8 L Lymph # 1.1 L Lymph # (Auto) Seg Neutrophils % 86.7 H Seg Neuts % (Manual) Lymphocytes % (Manual) Seg Neutrophils # 11.0 H Seg Neutrophils # Man Basophils % (Manual) Nucleated RBC % Lymphocytes # (Manual) Monocytes # (Manual) Basophils # (Manual) PT INR Heparin Anti-Xa Level POC ABG pO2 ABG pH ABG Hemoglobin ABG Oxyhemoglobin ABG pO2 ABG HCO3 ABG O2 Saturation ABG Base Excess ABG Potassium ABG Chloride ABG Glucose Oxyhemoglobin Sodium Potassium 3.3 L D Chloride Carbon Dioxide BUN Creatinine 0.4 L Glucose POC Glucose 141 H Lactic Acid Calcium 8.1 L AST Phosphorus Total Protein 4.6 L Albumin 1.6 L C-Reactive Protein Arterial Blood Glucose Arterial Blood Ionized Calcium Urine WBC (Auto) Crossmatch 01/17/20 01/17/20 01/18/20 11:43 23:56 06:27 WBC RBC Hgb Hct MCHC RDW Plt Count MCH Lymph % (Auto) Lymph # Lymph # (Auto) Seg Neutrophils % Seg Neuts % (Manual) Lymphocytes % (Manual) Seg Neutrophils # Seg Neutrophils # Man Basophils % (Manual) Nucleated RBC % Lymphocytes # (Manual) Monocytes # (Manual) Basophils # (Manual) PT INR Heparin Anti-Xa Level POC ABG pO2 ABG pH ABG Hemoglobin ABG Oxyhemoglobin ABG pO2 ABG HCO3 ABG O2 Saturation ABG Base Excess ABG Potassium ABG Chloride ABG Glucose Oxyhemoglobin Sodium Potassium Chloride Carbon Dioxide BUN Creatinine Glucose POC Glucose 137 H 215 H 122 H Lactic Acid Calcium AST Phosphorus Total Protein Albumin C-Reactive Protein Arterial Blood Glucose Arterial Blood Ionized Calcium Urine WBC (Auto) Crossmatch 01/18/20 01/18/20 01/18/20 07:31 07:31 11:39 WBC 12.1 H RBC 3.23 L Hgb 9.7 L Hct 28.7 L MCHC RDW Plt Count MCH Lymph % (Auto) 9.2 L Lymph # 1.1 L Lymph # (Auto) Seg Neutrophils % 85.0 H Seg Neuts % (Manual) Lymphocytes % (Manual) Seg Neutrophils # 10.3 H Seg Neutrophils # Man Basophils % (Manual) Nucleated RBC % Lymphocytes # (Manual) Monocytes # (Manual) Basophils # (Manual) PT INR Heparin Anti-Xa Level POC ABG pO2 ABG pH ABG Hemoglobin ABG Oxyhemoglobin ABG pO2 ABG HCO3 ABG O2 Saturation ABG Base Excess ABG Potassium ABG Chloride ABG Glucose Oxyhemoglobin Sodium Potassium Chloride Carbon Dioxide BUN Creatinine 0.4 L Glucose 108 H POC Glucose 172 H Lactic Acid Calcium AST Phosphorus Total Protein 5.3 L Albumin 2.1 L C-Reactive Protein Arterial Blood Glucose Arterial Blood Ionized Calcium Urine WBC (Auto) Crossmatch 01/18/20 01/19/20 01/19/20 18:22 00:15 11:30 WBC RBC Hgb Hct MCHC RDW Plt Count MCH Lymph % (Auto) Lymph # Lymph # (Auto) Seg Neutrophils % Seg Neuts % (Manual) Lymphocytes % (Manual) Seg Neutrophils # Seg Neutrophils # Man Basophils % (Manual) Nucleated RBC % Lymphocytes # (Manual) Monocytes # (Manual) Basophils # (Manual) PT INR Heparin Anti-Xa Level POC ABG pO2 ABG pH ABG Hemoglobin ABG Oxyhemoglobin ABG pO2 ABG HCO3 ABG O2 Saturation ABG Base Excess ABG Potassium ABG Chloride ABG Glucose Oxyhemoglobin Sodium Potassium Chloride Carbon Dioxide BUN Creatinine Glucose POC Glucose 119 H 135 H 163 H Lactic Acid Calcium AST Phosphorus Total Protein Albumin C-Reactive Protein Arterial Blood Glucose Arterial Blood Ionized Calcium Urine WBC (Auto) Crossmatch 01/19/20 01/19/20 01/20/20 17:44 22:59 03:44 WBC 11.1 H RBC 2.77 L Hgb 8.4 L Hct 25.0 L MCHC RDW Plt Count MCH Lymph % (Auto) Lymph # Lymph # (Auto) Seg Neutrophils % 74.6 H Seg Neuts % (Manual) Lymphocytes % (Manual) Seg Neutrophils # 8.3 H Seg Neutrophils # Man Basophils % (Manual) Nucleated RBC % Lymphocytes # (Manual) Monocytes # (Manual) Basophils # (Manual) PT INR Heparin Anti-Xa Level POC ABG pO2 ABG pH ABG Hemoglobin ABG Oxyhemoglobin ABG pO2 ABG HCO3 ABG O2 Saturation ABG Base Excess ABG Potassium ABG Chloride ABG Glucose Oxyhemoglobin Sodium Potassium Chloride Carbon Dioxide BUN Creatinine Glucose POC Glucose 161 H 182 H Lactic Acid Calcium AST Phosphorus Total Protein Albumin C-Reactive Protein Arterial Blood Glucose Arterial Blood Ionized Calcium Urine WBC (Auto) Crossmatch 01/20/20 01/21/20 01/21/20 03:44 00:07 05:51 WBC RBC 2.84 L Hgb 8.6 L Hct 25.5 L MCHC RDW Plt Count 463 H MCH Lymph % (Auto) Lymph # Lymph # (Auto) Seg Neutrophils % 76.9 H Seg Neuts % (Manual) Lymphocytes % (Manual) Seg Neutrophils # 7.8 H Seg Neutrophils # Man Basophils % (Manual) Nucleated RBC % Lymphocytes # (Manual) Monocytes # (Manual) Basophils # (Manual) PT INR Heparin Anti-Xa Level POC ABG pO2 ABG pH ABG Hemoglobin ABG Oxyhemoglobin ABG pO2 ABG HCO3 ABG O2 Saturation ABG Base Excess ABG Potassium ABG Chloride ABG Glucose Oxyhemoglobin Sodium Potassium Chloride Carbon Dioxide BUN Creatinine 0.4 L Glucose POC Glucose 68 L Lactic Acid Calcium 7.9 L AST Phosphorus Total Protein 4.7 L Albumin 1.9 L C-Reactive Protein Arterial Blood Glucose Arterial Blood Ionized Calcium Urine WBC (Auto) Crossmatch 01/21/20 01/21/20 01/21/20 05:51 05:58 11:25 WBC RBC Hgb Hct MCHC RDW Plt Count MCH Lymph % (Auto) Lymph # Lymph # (Auto) Seg Neutrophils % Seg Neuts % (Manual) Lymphocytes % (Manual) Seg Neutrophils # Seg Neutrophils # Man Basophils % (Manual) Nucleated RBC % Lymphocytes # (Manual) Monocytes # (Manual) Basophils # (Manual) PT INR Heparin Anti-Xa Level POC ABG pO2 ABG pH ABG Hemoglobin ABG Oxyhemoglobin ABG pO2 ABG HCO3 ABG O2 Saturation ABG Base Excess ABG Potassium ABG Chloride ABG Glucose Oxyhemoglobin Sodium Potassium Chloride Carbon Dioxide 20 L BUN Creatinine 0.5 L Glucose 130 H POC Glucose 185 H 163 H Lactic Acid Calcium 7.6 L AST Phosphorus Total Protein 5.0 L Albumin 1.9 L C-Reactive Protein Arterial Blood Glucose Arterial Blood Ionized Calcium Urine WBC (Auto) Crossmatch 01/21/20 01/21/20 01/22/20 16:22 21:17 01:28 WBC RBC 2.60 L Hgb 8.0 L Hct 23.3 L MCHC RDW Plt Count MCH Lymph % (Auto) Lymph # Lymph # (Auto) Seg Neutrophils % 74.8 H Seg Neuts % (Manual) Lymphocytes % (Manual) Seg Neutrophils # Seg Neutrophils # Man Basophils % (Manual) Nucleated RBC % Lymphocytes # (Manual) Monocytes # (Manual) Basophils # (Manual) PT INR Heparin Anti-Xa Level POC ABG pO2 ABG pH ABG Hemoglobin ABG Oxyhemoglobin ABG pO2 ABG HCO3 ABG O2 Saturation ABG Base Excess ABG Potassium ABG Chloride ABG Glucose Oxyhemoglobin Sodium Potassium Chloride Carbon Dioxide BUN Creatinine Glucose POC Glucose 177 H 67 L Lactic Acid Calcium AST Phosphorus Total Protein Albumin C-Reactive Protein Arterial Blood Glucose Arterial Blood Ionized Calcium Urine WBC (Auto) Crossmatch 01/22/20 01/22/20 01/22/20 01:28 01:28 12:06 WBC RBC Hgb Hct MCHC RDW Plt Count MCH Lymph % (Auto) Lymph # Lymph # (Auto) Seg Neutrophils % Seg Neuts % (Manual) Lymphocytes % (Manual) Seg Neutrophils # Seg Neutrophils # Man Basophils % (Manual) Nucleated RBC % Lymphocytes # (Manual) Monocytes # (Manual) Basophils # (Manual) PT INR Heparin Anti-Xa Level POC ABG pO2 ABG pH ABG Hemoglobin ABG Oxyhemoglobin ABG pO2 ABG HCO3 ABG O2 Saturation ABG Base Excess ABG Potassium ABG Chloride ABG Glucose Oxyhemoglobin Sodium Potassium Chloride 107.6 H Carbon Dioxide BUN Creatinine 0.4 L Glucose 152 H POC Glucose 203 H 140 H Lactic Acid Calcium 7.5 L AST Phosphorus Total Protein 4.0 L Albumin 2.0 L C-Reactive Protein Arterial Blood Glucose Arterial Blood Ionized Calcium Urine WBC (Auto) Crossmatch 01/22/20 01/22/20 01/23/20 16:24 22:55 06:10 WBC RBC 2.68 L Hgb 8.6 L Hct 24.1 L MCHC 36 H RDW Plt Count MCH Lymph % (Auto) Lymph # Lymph # (Auto) Seg Neutrophils % Seg Neuts % (Manual) 71.0 H Lymphocytes % (Manual) Seg Neutrophils # Seg Neutrophils # Man Basophils % (Manual) Nucleated RBC % Lymphocytes # (Manual) Monocytes # (Manual) Basophils # (Manual) PT INR Heparin Anti-Xa Level POC ABG pO2 ABG pH ABG Hemoglobin ABG Oxyhemoglobin ABG pO2 ABG HCO3 ABG O2 Saturation ABG Base Excess ABG Potassium ABG Chloride ABG Glucose Oxyhemoglobin Sodium Potassium Chloride Carbon Dioxide BUN Creatinine Glucose POC Glucose 205 H 196 H Lactic Acid Calcium AST Phosphorus Total Protein Albumin C-Reactive Protein Arterial Blood Glucose Arterial Blood Ionized Calcium Urine WBC (Auto) Crossmatch 01/23/20 01/23/20 01/23/20 06:10 07:35 11:59 WBC RBC Hgb Hct MCHC RDW Plt Count MCH Lymph % (Auto) Lymph # Lymph # (Auto) Seg Neutrophils % Seg Neuts % (Manual) Lymphocytes % (Manual) Seg Neutrophils # Seg Neutrophils # Man Basophils % (Manual) Nucleated RBC % Lymphocytes # (Manual) Monocytes # (Manual) Basophils # (Manual) PT INR Heparin Anti-Xa Level POC ABG pO2 ABG pH ABG Hemoglobin ABG Oxyhemoglobin ABG pO2 ABG HCO3 ABG O2 Saturation ABG Base Excess ABG Potassium ABG Chloride ABG Glucose Oxyhemoglobin Sodium Potassium Chloride 108.8 H Carbon Dioxide BUN Creatinine 0.4 L Glucose 105 H POC Glucose 111 H 123 H Lactic Acid Calcium 8.0 L AST Phosphorus Total Protein 4.9 L D Albumin 2.0 L C-Reactive Protein Arterial Blood Glucose Arterial Blood Ionized Calcium Urine WBC (Auto) Crossmatch 01/23/20 01/24/20 01/24/20 22:45 11:24 16:41 WBC RBC Hgb Hct MCHC RDW Plt Count MCH Lymph % (Auto) Lymph # Lymph # (Auto) Seg Neutrophils % Seg Neuts % (Manual) Lymphocytes % (Manual) Seg Neutrophils # Seg Neutrophils # Man Basophils % (Manual) Nucleated RBC % Lymphocytes # (Manual) Monocytes # (Manual) Basophils # (Manual) PT INR Heparin Anti-Xa Level POC ABG pO2 ABG pH ABG Hemoglobin ABG Oxyhemoglobin ABG pO2 ABG HCO3 ABG O2 Saturation ABG Base Excess ABG Potassium ABG Chloride ABG Glucose Oxyhemoglobin Sodium Potassium Chloride Carbon Dioxide BUN Creatinine Glucose POC Glucose 180 H 182 H 177 H Lactic Acid Calcium AST Phosphorus Total Protein Albumin C-Reactive Protein Arterial Blood Glucose Arterial Blood Ionized Calcium Urine WBC (Auto) Crossmatch 01/24/20 01/25/20 01/25/20 23:11 07:12 11:35 WBC RBC Hgb Hct MCHC RDW Plt Count MCH Lymph % (Auto) Lymph # Lymph # (Auto) Seg Neutrophils % Seg Neuts % (Manual) Lymphocytes % (Manual) Seg Neutrophils # Seg Neutrophils # Man Basophils % (Manual) Nucleated RBC % Lymphocytes # (Manual) Monocytes # (Manual) Basophils # (Manual) PT INR Heparin Anti-Xa Level POC ABG pO2 ABG pH ABG Hemoglobin ABG Oxyhemoglobin ABG pO2 ABG HCO3 ABG O2 Saturation ABG Base Excess ABG Potassium ABG Chloride ABG Glucose Oxyhemoglobin Sodium Potassium Chloride Carbon Dioxide BUN Creatinine Glucose POC Glucose 142 H 135 H 142 H Lactic Acid Calcium AST Phosphorus Total Protein Albumin C-Reactive Protein Arterial Blood Glucose Arterial Blood Ionized Calcium Urine WBC (Auto) Crossmatch 01/25/20 01/26/20 01/26/20 16:33 00:04 11:35 WBC RBC Hgb Hct MCHC RDW Plt Count MCH Lymph % (Auto) Lymph # Lymph # (Auto) Seg Neutrophils % Seg Neuts % (Manual) Lymphocytes % (Manual) Seg Neutrophils # Seg Neutrophils # Man Basophils % (Manual) Nucleated RBC % Lymphocytes # (Manual) Monocytes # (Manual) Basophils # (Manual) PT INR Heparin Anti-Xa Level POC ABG pO2 ABG pH ABG Hemoglobin ABG Oxyhemoglobin ABG pO2 ABG HCO3 ABG O2 Saturation ABG Base Excess ABG Potassium ABG Chloride ABG Glucose Oxyhemoglobin Sodium Potassium Chloride Carbon Dioxide BUN Creatinine Glucose POC Glucose 247 H 233 H 200 H Lactic Acid Calcium AST Phosphorus Total Protein Albumin C-Reactive Protein Arterial Blood Glucose Arterial Blood Ionized Calcium Urine WBC (Auto) Crossmatch 01/26/20 01/26/20 01/26/20 16:30 16:30 17:19 WBC RBC Hgb 7.4 L Hct 22.0 L MCHC RDW Plt Count MCH Lymph % (Auto) Lymph # Lymph # (Auto) Seg Neutrophils % Seg Neuts % (Manual) Lymphocytes % (Manual) Seg Neutrophils # Seg Neutrophils # Man Basophils % (Manual) Nucleated RBC % Lymphocytes # (Manual) Monocytes # (Manual) Basophils # (Manual) PT 18.4 H INR 1.50 H Heparin Anti-Xa Level POC ABG pO2 ABG pH ABG Hemoglobin ABG Oxyhemoglobin ABG pO2 ABG HCO3 ABG O2 Saturation ABG Base Excess ABG Potassium ABG Chloride ABG Glucose Oxyhemoglobin Sodium Potassium Chloride Carbon Dioxide BUN Creatinine Glucose POC Glucose 67 L Lactic Acid Calcium AST Phosphorus Total Protein Albumin C-Reactive Protein Arterial Blood Glucose Arterial Blood Ionized Calcium Urine WBC (Auto) Crossmatch 01/26/20 01/26/20 01/27/20 20:24 21:32 00:16 WBC RBC Hgb Hct MCHC RDW Plt Count MCH Lymph % (Auto) Lymph # Lymph # (Auto) Seg Neutrophils % Seg Neuts % (Manual) Lymphocytes % (Manual) Seg Neutrophils # Seg Neutrophils # Man Basophils % (Manual) Nucleated RBC % Lymphocytes # (Manual) Monocytes # (Manual) Basophils # (Manual) PT INR Heparin Anti-Xa Level POC ABG pO2 51.8 L ABG pH ABG Hemoglobin 8.5 L ABG Oxyhemoglobin 84.7 L ABG pO2 ABG HCO3 ABG O2 Saturation ABG Base Excess ABG Potassium ABG Chloride ABG Glucose Oxyhemoglobin Sodium Potassium Chloride Carbon Dioxide BUN Creatinine Glucose POC Glucose 162 H 141 H Lactic Acid Calcium AST Phosphorus Total Protein Albumin C-Reactive Protein Arterial Blood Glucose Arterial Blood Ionized Calcium Urine WBC (Auto) Crossmatch 01/27/20 01/27/20 01/27/20 01:42 02:18 05:57 WBC RBC Hgb Hct MCHC RDW Plt Count MCH Lymph % (Auto) Lymph # Lymph # (Auto) Seg Neutrophils % Seg Neuts % (Manual) Lymphocytes % (Manual) Seg Neutrophils # Seg Neutrophils # Man Basophils % (Manual) Nucleated RBC % Lymphocytes # (Manual) Monocytes # (Manual) Basophils # (Manual) PT INR Heparin Anti-Xa Level 2.00 H POC ABG pO2 ABG pH ABG Hemoglobin ABG Oxyhemoglobin ABG pO2 ABG HCO3 ABG O2 Saturation ABG Base Excess ABG Potassium ABG Chloride ABG Glucose Oxyhemoglobin Sodium Potassium Chloride Carbon Dioxide BUN Creatinine Glucose POC Glucose 183 H 124 H Lactic Acid Calcium AST Phosphorus Total Protein Albumin C-Reactive Protein Arterial Blood Glucose Arterial Blood Ionized Calcium Urine WBC (Auto) Crossmatch 01/27/20 01/27/20 01/27/20 06:30 06:30 12:23 WBC RBC 2.75 L Hgb 8.4 L Hct 24.9 L MCHC RDW 16.0 H Plt Count 474 H MCH Lymph % (Auto) 12.7 L Lymph # Lymph # (Auto) Seg Neutrophils % 83.2 H Seg Neuts % (Manual) Lymphocytes % (Manual) Seg Neutrophils # 8.4 H Seg Neutrophils # Man Basophils % (Manual) Nucleated RBC % Lymphocytes # (Manual) Monocytes # (Manual) Basophils # (Manual) PT INR Heparin Anti-Xa Level POC ABG pO2 ABG pH ABG Hemoglobin ABG Oxyhemoglobin ABG pO2 ABG HCO3 ABG O2 Saturation ABG Base Excess ABG Potassium ABG Chloride ABG Glucose Oxyhemoglobin Sodium Potassium 3.5 L Chloride 110.2 H Carbon Dioxide BUN Creatinine 0.4 L Glucose 101 H POC Glucose 126 H Lactic Acid Calcium 7.8 L AST Phosphorus Total Protein Albumin C-Reactive Protein Arterial Blood Glucose Arterial Blood Ionized Calcium Urine WBC (Auto) Crossmatch 01/27/20 01/27/20 01/28/20 17:31 23:40 00:00 WBC RBC Hgb Hct MCHC RDW Plt Count MCH Lymph % (Auto) Lymph # Lymph # (Auto) Seg Neutrophils % Seg Neuts % (Manual) Lymphocytes % (Manual) Seg Neutrophils # Seg Neutrophils # Man Basophils % (Manual) Nucleated RBC % Lymphocytes # (Manual) Monocytes # (Manual) Basophils # (Manual) PT INR Heparin Anti-Xa Level 2.00 H POC ABG pO2 ABG pH ABG Hemoglobin ABG Oxyhemoglobin ABG pO2 ABG HCO3 ABG O2 Saturation ABG Base Excess ABG Potassium ABG Chloride ABG Glucose Oxyhemoglobin Sodium Potassium Chloride Carbon Dioxide BUN Creatinine Glucose POC Glucose 133 H 136 H Lactic Acid Calcium AST Phosphorus Total Protein Albumin C-Reactive Protein Arterial Blood Glucose Arterial Blood Ionized Calcium Urine WBC (Auto) Crossmatch 01/28/20 01/28/20 01/28/20 04:26 04:26 05:35 WBC RBC Hgb 9.6 L Hct 28.5 L MCHC RDW Plt Count 508 H MCH Lymph % (Auto) Lymph # Lymph # (Auto) Seg Neutrophils % Seg Neuts % (Manual) Lymphocytes % (Manual) Seg Neutrophils # Seg Neutrophils # Man Basophils % (Manual) Nucleated RBC % Lymphocytes # (Manual) Monocytes # (Manual) Basophils # (Manual) PT INR Heparin Anti-Xa Level POC ABG pO2 ABG pH ABG Hemoglobin ABG Oxyhemoglobin ABG pO2 ABG HCO3 ABG O2 Saturation ABG Base Excess ABG Potassium ABG Chloride ABG Glucose Oxyhemoglobin Sodium Potassium Chloride Carbon Dioxide 19 L BUN 20 H Creatinine 0.5 L Glucose 103 H POC Glucose 135 H Lactic Acid Calcium 7.9 L AST Phosphorus Total Protein Albumin C-Reactive Protein Arterial Blood Glucose Arterial Blood Ionized Calcium Urine WBC (Auto) Crossmatch 01/28/20 01/28/20 01/28/20 08:50 11:10 11:51 WBC RBC Hgb Hct MCHC RDW Plt Count MCH Lymph % (Auto) Lymph # Lymph # (Auto) Seg Neutrophils % Seg Neuts % (Manual) Lymphocytes % (Manual) Seg Neutrophils # Seg Neutrophils # Man Basophils % (Manual) Nucleated RBC % Lymphocytes # (Manual) Monocytes # (Manual) Basophils # (Manual) PT INR Heparin Anti-Xa Level 0.74 H POC ABG pO2 67.2 L ABG pH ABG Hemoglobin 9.3 L ABG Oxyhemoglobin ABG pO2 ABG HCO3 ABG O2 Saturation ABG Base Excess ABG Potassium ABG Chloride ABG Glucose Oxyhemoglobin Sodium Potassium Chloride Carbon Dioxide BUN Creatinine Glucose POC Glucose 160 H Lactic Acid Calcium AST Phosphorus Total Protein Albumin C-Reactive Protein Arterial Blood Glucose Arterial Blood Ionized Calcium Urine WBC (Auto) Crossmatch 01/28/20 01/28/20 01/29/20 17:19 23:53 03:52 WBC RBC Hgb Hct MCHC RDW Plt Count MCH Lymph % (Auto) Lymph # Lymph # (Auto) Seg Neutrophils % Seg Neuts % (Manual) Lymphocytes % (Manual) Seg Neutrophils # Seg Neutrophils # Man Basophils % (Manual) Nucleated RBC % Lymphocytes # (Manual) Monocytes # (Manual) Basophils # (Manual) PT INR Heparin Anti-Xa Level POC ABG pO2 ABG pH 7.510 H ABG Hemoglobin 7.3 L ABG Oxyhemoglobin ABG pO2 357.0 H ABG HCO3 19.6 L ABG O2 Saturation 99.6 H ABG Base Excess -2.9 L ABG Potassium ABG Chloride ABG Glucose Oxyhemoglobin Sodium Potassium Chloride Carbon Dioxide BUN Creatinine Glucose POC Glucose 177 H 142 H Lactic Acid Calcium AST Phosphorus Total Protein Albumin C-Reactive Protein Arterial Blood Glucose Arterial Blood Ionized Calcium Urine WBC (Auto) Crossmatch 01/29/20 01/29/20 01/29/20 04:58 04:58 06:01 WBC 13.1 H RBC 2.75 L Hgb 8.6 L Hct 25.6 L MCHC RDW 17.7 H Plt Count MCH Lymph % (Auto) Lymph # Lymph # (Auto) Seg Neutrophils % Seg Neuts % (Manual) 91.0 H Lymphocytes % (Manual) 6.0 L Seg Neutrophils # Seg Neutrophils # Man 11.9 H Basophils % (Manual) Nucleated RBC % 1.0 H Lymphocytes # (Manual) 0.8 L Monocytes # (Manual) Basophils # (Manual) PT INR Heparin Anti-Xa Level POC ABG pO2 ABG pH ABG Hemoglobin ABG Oxyhemoglobin ABG pO2 ABG HCO3 ABG O2 Saturation ABG Base Excess ABG Potassium ABG Chloride ABG Glucose Oxyhemoglobin Sodium 148 H Potassium 3.5 L D Chloride 113.2 H Carbon Dioxide 21 L BUN 20 H Creatinine Glucose 137 H POC Glucose 167 H Lactic Acid Calcium 8.1 L AST Phosphorus Total Protein Albumin C-Reactive Protein Arterial Blood Glucose Arterial Blood Ionized Calcium Urine WBC (Auto) Crossmatch 01/29/20 01/29/20 01/29/20 11:45 17:52 23:49 WBC RBC Hgb Hct MCHC RDW Plt Count MCH Lymph % (Auto) Lymph # Lymph # (Auto) Seg Neutrophils % Seg Neuts % (Manual) Lymphocytes % (Manual) Seg Neutrophils # Seg Neutrophils # Man Basophils % (Manual) Nucleated RBC % Lymphocytes # (Manual) Monocytes # (Manual) Basophils # (Manual) PT INR Heparin Anti-Xa Level POC ABG pO2 ABG pH ABG Hemoglobin ABG Oxyhemoglobin ABG pO2 ABG HCO3 ABG O2 Saturation ABG Base Excess ABG Potassium ABG Chloride ABG Glucose Oxyhemoglobin Sodium Potassium Chloride Carbon Dioxide BUN Creatinine Glucose POC Glucose 185 H 226 H 141 H Lactic Acid Calcium AST Phosphorus Total Protein Albumin C-Reactive Protein Arterial Blood Glucose Arterial Blood Ionized Calcium Urine WBC (Auto) Crossmatch 01/29/20 01/30/20 01/30/20 Unknown 03:24 04:00 WBC RBC Hgb 7.8 L Hct 23.5 L MCHC RDW Plt Count MCH Lymph % (Auto) Lymph # Lymph # (Auto) Seg Neutrophils % Seg Neuts % (Manual) Lymphocytes % (Manual) Seg Neutrophils # Seg Neutrophils # Man Basophils % (Manual) Nucleated RBC % Lymphocytes # (Manual) Monocytes # (Manual) Basophils # (Manual) PT INR Heparin Anti-Xa Level POC ABG pO2 ABG pH 7.485 H ABG Hemoglobin 6.7 L ABG Oxyhemoglobin ABG pO2 102.0 H ABG HCO3 ABG O2 Saturation ABG Base Excess ABG Potassium ABG Chloride ABG Glucose Oxyhemoglobin Sodium Potassium Chloride Carbon Dioxide BUN Creatinine Glucose POC Glucose Lactic Acid Calcium AST Phosphorus Total Protein Albumin C-Reactive Protein 14.80 H Arterial Blood Glucose Arterial Blood Ionized Calcium Urine WBC (Auto) Crossmatch 01/30/20 01/30/20 01/30/20 05:50 11:15 17:07 WBC RBC Hgb Hct MCHC RDW Plt Count MCH Lymph % (Auto) Lymph # Lymph # (Auto) Seg Neutrophils % Seg Neuts % (Manual) Lymphocytes % (Manual) Seg Neutrophils # Seg Neutrophils # Man Basophils % (Manual) Nucleated RBC % Lymphocytes # (Manual) Monocytes # (Manual) Basophils # (Manual) PT INR Heparin Anti-Xa Level POC ABG pO2 ABG pH ABG Hemoglobin ABG Oxyhemoglobin ABG pO2 ABG HCO3 ABG O2 Saturation ABG Base Excess ABG Potassium ABG Chloride ABG Glucose Oxyhemoglobin Sodium Potassium Chloride Carbon Dioxide BUN Creatinine Glucose POC Glucose 122 H 207 H 124 H Lactic Acid Calcium AST Phosphorus Total Protein Albumin C-Reactive Protein Arterial Blood Glucose Arterial Blood Ionized Calcium Urine WBC (Auto) Crossmatch 01/30/20 01/31/20 01/31/20 17:08 00:10 04:52 WBC RBC Hgb Hct MCHC RDW Plt Count MCH Lymph % (Auto) Lymph # Lymph # (Auto) Seg Neutrophils % Seg Neuts % (Manual) Lymphocytes % (Manual) Seg Neutrophils # Seg Neutrophils # Man Basophils % (Manual) Nucleated RBC % Lymphocytes # (Manual) Monocytes # (Manual) Basophils # (Manual) PT INR Heparin Anti-Xa Level POC ABG pO2 ABG pH 7.504 H 7.486 H ABG Hemoglobin 7.4 L 6.2 L ABG Oxyhemoglobin ABG pO2 169.2 H 121.7 H ABG HCO3 27.1 H ABG O2 Saturation 99.1 H ABG Base Excess 3.4 H ABG Potassium ABG Chloride ABG Glucose Oxyhemoglobin Sodium Potassium Chloride Carbon Dioxide BUN Creatinine Glucose POC Glucose 191 H Lactic Acid Calcium AST Phosphorus Total Protein Albumin C-Reactive Protein Arterial Blood Glucose Arterial Blood Ionized Calcium Urine WBC (Auto) Crossmatch 01/31/20 01/31/20 01/31/20 05:37 11:59 12:40 WBC RBC 2.41 L Hgb 7.5 L Hct 22.3 L MCHC RDW 22.2 H Plt Count MCH Lymph % (Auto) Lymph # Lymph # (Auto) Seg Neutrophils % Seg Neuts % (Manual) 94.0 H Lymphocytes % (Manual) 2.0 L Seg Neutrophils # Seg Neutrophils # Man 9.4 H Basophils % (Manual) Nucleated RBC % Lymphocytes # (Manual) 0.2 L Monocytes # (Manual) Basophils # (Manual) PT INR Heparin Anti-Xa Level POC ABG pO2 ABG pH ABG Hemoglobin ABG Oxyhemoglobin ABG pO2 ABG HCO3 ABG O2 Saturation ABG Base Excess ABG Potassium ABG Chloride ABG Glucose Oxyhemoglobin Sodium Potassium Chloride Carbon Dioxide BUN Creatinine Glucose POC Glucose 175 H 220 H Lactic Acid Calcium AST Phosphorus Total Protein Albumin C-Reactive Protein Arterial Blood Glucose Arterial Blood Ionized Calcium Urine WBC (Auto) Crossmatch 01/31/20 01/31/20 01/31/20 12:40 14:40 18:18 WBC RBC Hgb Hct MCHC RDW Plt Count MCH Lymph % (Auto) Lymph # Lymph # (Auto) Seg Neutrophils % Seg Neuts % (Manual) Lymphocytes % (Manual) Seg Neutrophils # Seg Neutrophils # Man Basophils % (Manual) Nucleated RBC % Lymphocytes # (Manual) Monocytes # (Manual) Basophils # (Manual) PT INR Heparin Anti-Xa Level POC ABG pO2 124.7 H ABG pH 7.542 H ABG Hemoglobin 7.8 L ABG Oxyhemoglobin ABG pO2 ABG HCO3 ABG O2 Saturation ABG Base Excess ABG Potassium ABG Chloride ABG Glucose Oxyhemoglobin Sodium 151 H Potassium 2.1 L* D Chloride 108.9 H Carbon Dioxide BUN 22 H Creatinine Glucose 194 H POC Glucose 181 H Lactic Acid Calcium 8.1 L AST Phosphorus Total Protein 4.8 L Albumin 2.3 L C-Reactive Protein Arterial Blood Glucose Arterial Blood Ionized Calcium Urine WBC (Auto) Crossmatch 02/01/20 02/01/20 02/01/20 00:11 03:14 04:32 WBC 11.9 H RBC 2.47 L Hgb 7.6 L Hct 22.8 L MCHC RDW 22.7 H Plt Count MCH Lymph % (Auto) Lymph # Lymph # (Auto) Seg Neutrophils % Seg Neuts % (Manual) 90.0 H Lymphocytes % (Manual) 5.0 L Seg Neutrophils # Seg Neutrophils # Man 10.7 H Basophils % (Manual) Nucleated RBC % Lymphocytes # (Manual) 0.6 L Monocytes # (Manual) Basophils # (Manual) PT INR Heparin Anti-Xa Level POC ABG pO2 ABG pH 7.564 H ABG Hemoglobin 7.6 L ABG Oxyhemoglobin ABG pO2 124.1 H ABG HCO3 29.6 H ABG O2 Saturation ABG Base Excess 7.0 H ABG Potassium ABG Chloride ABG Glucose Oxyhemoglobin Sodium Potassium Chloride Carbon Dioxide BUN Creatinine Glucose POC Glucose 190 H Lactic Acid Calcium AST Phosphorus Total Protein Albumin C-Reactive Protein Arterial Blood Glucose Arterial Blood Ionized Calcium Urine WBC (Auto) Crossmatch 02/01/20 02/01/20 02/01/20 04:32 05:28 11:56 WBC RBC Hgb Hct MCHC RDW Plt Count MCH Lymph % (Auto) Lymph # Lymph # (Auto) Seg Neutrophils % Seg Neuts % (Manual) Lymphocytes % (Manual) Seg Neutrophils # Seg Neutrophils # Man Basophils % (Manual) Nucleated RBC % Lymphocytes # (Manual) Monocytes # (Manual) Basophils # (Manual) PT INR Heparin Anti-Xa Level POC ABG pO2 ABG pH ABG Hemoglobin ABG Oxyhemoglobin ABG pO2 ABG HCO3 ABG O2 Saturation ABG Base Excess ABG Potassium ABG Chloride ABG Glucose Oxyhemoglobin Sodium 149 H Potassium 2.6 L* D Chloride Carbon Dioxide 33 H BUN 23 H Creatinine 0.5 L Glucose 174 H POC Glucose 187 H 195 H Lactic Acid Calcium 8.0 L AST Phosphorus 1.60 L Total Protein Albumin C-Reactive Protein Arterial Blood Glucose Arterial Blood Ionized Calcium Urine WBC (Auto) Crossmatch 02/01/20 02/01/20 02/02/20 18:15 23:35 04:33 WBC RBC Hgb Hct MCHC RDW Plt Count MCH Lymph % (Auto) Lymph # Lymph # (Auto) Seg Neutrophils % Seg Neuts % (Manual) Lymphocytes % (Manual) Seg Neutrophils # Seg Neutrophils # Man Basophils % (Manual) Nucleated RBC % Lymphocytes # (Manual) Monocytes # (Manual) Basophils # (Manual) PT INR Heparin Anti-Xa Level POC ABG pO2 ABG pH 7.549 H ABG Hemoglobin 9.8 L ABG Oxyhemoglobin ABG pO2 ABG HCO3 ABG O2 Saturation ABG Base Excess ABG Potassium ABG Chloride ABG Glucose Oxyhemoglobin Sodium Potassium Chloride Carbon Dioxide BUN Creatinine Glucose POC Glucose 226 H 252 H Lactic Acid Calcium AST Phosphorus Total Protein Albumin C-Reactive Protein Arterial Blood Glucose Arterial Blood Ionized Calcium Urine WBC (Auto) Crossmatch 02/02/20 02/02/20 02/02/20 05:25 05:25 05:40 WBC 15.5 H RBC 2.43 L Hgb 7.6 L Hct 22.9 L MCHC RDW 23.6 H Plt Count MCH Lymph % (Auto) Lymph # Lymph # (Auto) Seg Neutrophils % Seg Neuts % (Manual) 89.0 H Lymphocytes % (Manual) 3.0 L Seg Neutrophils # Seg Neutrophils # Man 13.8 H Basophils % (Manual) Nucleated RBC % Lymphocytes # (Manual) 0.5 L Monocytes # (Manual) 0.9 H Basophils # (Manual) PT INR Heparin Anti-Xa Level POC ABG pO2 ABG pH ABG Hemoglobin ABG Oxyhemoglobin ABG pO2 ABG HCO3 ABG O2 Saturation ABG Base Excess ABG Potassium ABG Chloride ABG Glucose Oxyhemoglobin Sodium Potassium 2.6 L* Chloride Carbon Dioxide 33 H BUN 26 H Creatinine Glucose 175 H POC Glucose 181 H Lactic Acid Calcium 7.9 L AST Phosphorus Total Protein Albumin C-Reactive Protein Arterial Blood Glucose Arterial Blood Ionized Calcium Urine WBC (Auto) Crossmatch 02/02/20 02/02/20 02/02/20 11:55 14:45 17:18 WBC RBC Hgb Hct MCHC RDW Plt Count MCH Lymph % (Auto) Lymph # Lymph # (Auto) Seg Neutrophils % Seg Neuts % (Manual) Lymphocytes % (Manual) Seg Neutrophils # Seg Neutrophils # Man Basophils % (Manual) Nucleated RBC % Lymphocytes # (Manual) Monocytes # (Manual) Basophils # (Manual) PT INR Heparin Anti-Xa Level POC ABG pO2 ABG pH 7.56 H ABG Hemoglobin 7.6 L ABG Oxyhemoglobin ABG pO2 ABG HCO3 ABG O2 Saturation ABG Base Excess ABG Potassium ABG Chloride ABG Glucose Oxyhemoglobin Sodium Potassium Chloride Carbon Dioxide BUN Creatinine Glucose POC Glucose 226 H 227 H Lactic Acid Calcium AST Phosphorus Total Protein Albumin C-Reactive Protein Arterial Blood Glucose Arterial Blood Ionized Calcium Urine WBC (Auto) Crossmatch 02/02/20 02/03/20 02/03/20 20:54 00:02 05:14 WBC 18.7 H RBC 2.45 L Hgb 7.6 L Hct 23.2 L MCHC RDW 23.5 H Plt Count MCH Lymph % (Auto) Lymph # Lymph # (Auto) Seg Neutrophils % Seg Neuts % (Manual) 94.0 H Lymphocytes % (Manual) 3.0 L Seg Neutrophils # Seg Neutrophils # Man 17.6 H Basophils % (Manual) Nucleated RBC % Lymphocytes # (Manual) 0.6 L Monocytes # (Manual) Basophils # (Manual) PT INR Heparin Anti-Xa Level POC ABG pO2 ABG pH ABG Hemoglobin ABG Oxyhemoglobin ABG pO2 ABG HCO3 ABG O2 Saturation ABG Base Excess ABG Potassium ABG Chloride ABG Glucose Oxyhemoglobin Sodium Potassium 3.2 L D Chloride Carbon Dioxide BUN Creatinine Glucose POC Glucose 204 H Lactic Acid Calcium AST Phosphorus Total Protein Albumin C-Reactive Protein Arterial Blood Glucose Arterial Blood Ionized Calcium Urine WBC (Auto) Crossmatch 02/03/20 02/03/20 02/03/20 05:14 05:14 05:20 WBC RBC Hgb Hct MCHC RDW Plt Count MCH Lymph % (Auto) Lymph # Lymph # (Auto) Seg Neutrophils % Seg Neuts % (Manual) Lymphocytes % (Manual) Seg Neutrophils # Seg Neutrophils # Man Basophils % (Manual) Nucleated RBC % Lymphocytes # (Manual) Monocytes # (Manual) Basophils # (Manual) PT INR Heparin Anti-Xa Level POC ABG pO2 ABG pH ABG Hemoglobin ABG Oxyhemoglobin ABG pO2 ABG HCO3 ABG O2 Saturation ABG Base Excess ABG Potassium ABG Chloride ABG Glucose Oxyhemoglobin Sodium Potassium 3.1 L Chloride Carbon Dioxide 33 H BUN 29 H Creatinine 0.5 L Glucose 160 H POC Glucose 146 H Lactic Acid Calcium 7.9 L AST Phosphorus 2.30 L Total Protein 4.8 L Albumin 2.4 L C-Reactive Protein Arterial Blood Glucose Arterial Blood Ionized Calcium Urine WBC (Auto) Crossmatch 02/03/20 02/03/20 02/03/20 12:35 18:14 23:26 WBC RBC Hgb Hct MCHC RDW Plt Count MCH Lymph % (Auto) Lymph # Lymph # (Auto) Seg Neutrophils % Seg Neuts % (Manual) Lymphocytes % (Manual) Seg Neutrophils # Seg Neutrophils # Man Basophils % (Manual) Nucleated RBC % Lymphocytes # (Manual) Monocytes # (Manual) Basophils # (Manual) PT INR Heparin Anti-Xa Level POC ABG pO2 ABG pH ABG Hemoglobin ABG Oxyhemoglobin ABG pO2 ABG HCO3 ABG O2 Saturation ABG Base Excess ABG Potassium ABG Chloride ABG Glucose Oxyhemoglobin Sodium Potassium Chloride Carbon Dioxide BUN Creatinine Glucose POC Glucose 219 H 248 H 173 H Lactic Acid Calcium AST Phosphorus Total Protein Albumin C-Reactive Protein Arterial Blood Glucose Arterial Blood Ionized Calcium Urine WBC (Auto) Crossmatch 02/04/20 02/04/20 02/04/20 05:34 05:36 06:51 WBC RBC Hgb Hct MCHC RDW Plt Count MCH Lymph % (Auto) Lymph # Lymph # (Auto) Seg Neutrophils % Seg Neuts % (Manual) Lymphocytes % (Manual) Seg Neutrophils # Seg Neutrophils # Man Basophils % (Manual) Nucleated RBC % Lymphocytes # (Manual) Monocytes # (Manual) Basophils # (Manual) PT INR Heparin Anti-Xa Level POC ABG pO2 ABG pH ABG Hemoglobin ABG Oxyhemoglobin ABG pO2 ABG HCO3 ABG O2 Saturation ABG Base Excess ABG Potassium ABG Chloride ABG Glucose Oxyhemoglobin Sodium Potassium Chloride Carbon Dioxide BUN Creatinine Glucose POC Glucose 56 L 64 L 127 H Lactic Acid Calcium AST Phosphorus Total Protein Albumin C-Reactive Protein Arterial Blood Glucose Arterial Blood Ionized Calcium Urine WBC (Auto) Crossmatch 02/04/20 02/04/20 02/04/20 11:57 13:42 13:53 WBC 19.2 H RBC 2.48 L Hgb 7.8 L Hct 23.5 L MCHC RDW 24.2 H Plt Count MCH Lymph % (Auto) Lymph # Lymph # (Auto) Seg Neutrophils % Seg Neuts % (Manual) 97.0 H Lymphocytes % (Manual) 2.0 L Seg Neutrophils # Seg Neutrophils # Man 18.6 H Basophils % (Manual) Nucleated RBC % Lymphocytes # (Manual) 0.4 L Monocytes # (Manual) Basophils # (Manual) PT INR Heparin Anti-Xa Level POC ABG pO2 118.2 H ABG pH 7.525 H ABG Hemoglobin 8.7 L ABG Oxyhemoglobin ABG pO2 ABG HCO3 ABG O2 Saturation ABG Base Excess ABG Potassium 2.8 L ABG Chloride ABG Glucose 185 H Oxyhemoglobin Sodium Potassium Chloride Carbon Dioxide BUN Creatinine Glucose POC Glucose 224 H Lactic Acid Calcium AST Phosphorus Total Protein Albumin C-Reactive Protein Arterial Blood Glucose 185 H Arterial Blood Ionized Calcium 4.5 L Urine WBC (Auto) Crossmatch 02/04/20 02/04/20 02/04/20 13:53 18:15 23:35 WBC RBC Hgb Hct MCHC RDW Plt Count MCH Lymph % (Auto) Lymph # Lymph # (Auto) Seg Neutrophils % Seg Neuts % (Manual) Lymphocytes % (Manual) Seg Neutrophils # Seg Neutrophils # Man Basophils % (Manual) Nucleated RBC % Lymphocytes # (Manual) Monocytes # (Manual) Basophils # (Manual) PT INR Heparin Anti-Xa Level POC ABG pO2 ABG pH ABG Hemoglobin ABG Oxyhemoglobin ABG pO2 ABG HCO3 ABG O2 Saturation ABG Base Excess ABG Potassium ABG Chloride ABG Glucose Oxyhemoglobin Sodium 147 H Potassium 2.8 L* Chloride Carbon Dioxide 38 H BUN 33 H Creatinine 0.5 L Glucose 202 H POC Glucose 215 H 197 H Lactic Acid Calcium AST Phosphorus Total Protein Albumin C-Reactive Protein Arterial Blood Glucose Arterial Blood Ionized Calcium Urine WBC (Auto) Crossmatch 02/05/20 02/05/20 02/05/20 01:03 04:00 04:00 WBC 26.7 H RBC 2.59 L Hgb 8.1 L Hct 24.6 L MCHC RDW 24.1 H Plt Count MCH Lymph % (Auto) 1.6 L Lymph # Lymph # (Auto) 0.4 L Seg Neutrophils % Seg Neuts % (Manual) Lymphocytes % (Manual) Seg Neutrophils # 25.9 H Seg Neutrophils # Man Basophils % (Manual) Nucleated RBC % Lymphocytes # (Manual) Monocytes # (Manual) Basophils # (Manual) PT INR Heparin Anti-Xa Level POC ABG pO2 ABG pH ABG Hemoglobin 7.1 L ABG Oxyhemoglobin ABG pO2 50.7 L ABG HCO3 29.6 H ABG O2 Saturation 82.7 L ABG Base Excess 4.8 H ABG Potassium ABG Chloride ABG Glucose Oxyhemoglobin 81.0 L Sodium 146 H Potassium Chloride Carbon Dioxide 32 H BUN 35 H Creatinine 0.5 L Glucose 226 H POC Glucose Lactic Acid Calcium AST Phosphorus Total Protein 5.1 L Albumin 2.2 L C-Reactive Protein Arterial Blood Glucose Arterial Blood Ionized Calcium Urine WBC (Auto) Crossmatch 02/05/20 02/05/20 02/06/20 05:32 17:56 00:19 WBC RBC Hgb Hct MCHC RDW Plt Count MCH Lymph % (Auto) Lymph # Lymph # (Auto) Seg Neutrophils % Seg Neuts % (Manual) Lymphocytes % (Manual) Seg Neutrophils # Seg Neutrophils # Man Basophils % (Manual) Nucleated RBC % Lymphocytes # (Manual) Monocytes # (Manual) Basophils # (Manual) PT INR Heparin Anti-Xa Level POC ABG pO2 ABG pH ABG Hemoglobin ABG Oxyhemoglobin ABG pO2 ABG HCO3 ABG O2 Saturation ABG Base Excess ABG Potassium ABG Chloride ABG Glucose Oxyhemoglobin Sodium Potassium Chloride Carbon Dioxide BUN Creatinine Glucose POC Glucose 239 H 175 H 309 H Lactic Acid Calcium AST Phosphorus Total Protein Albumin C-Reactive Protein Arterial Blood Glucose Arterial Blood Ionized Calcium Urine WBC (Auto) Crossmatch 02/06/20 02/06/20 02/06/20 04:26 04:27 05:11 WBC RBC Hgb Hct MCHC RDW Plt Count MCH Lymph % (Auto) Lymph # Lymph # (Auto) Seg Neutrophils % Seg Neuts % (Manual) Lymphocytes % (Manual) Seg Neutrophils # Seg Neutrophils # Man Basophils % (Manual) Nucleated RBC % Lymphocytes # (Manual) Monocytes # (Manual) Basophils # (Manual) PT INR Heparin Anti-Xa Level POC ABG pO2 175.3 H 157.2 H ABG pH 7.502 H 7.551 H ABG Hemoglobin 10.8 L 7.3 L ABG Oxyhemoglobin 98.3 H ABG pO2 ABG HCO3 ABG O2 Saturation ABG Base Excess ABG Potassium 3.3 L ABG Chloride 109.0 H ABG Glucose 148 H Oxyhemoglobin Sodium 148 H Potassium 3.0 L Chloride 107.3 H Carbon Dioxide 33 H BUN 33 H Creatinine 0.5 L Glucose 283 H POC Glucose Lactic Acid Calcium 7.9 L AST Phosphorus Total Protein 3.6 L D Albumin 1.2 L C-Reactive Protein Arterial Blood Glucose 148 H Arterial Blood Ionized Calcium Urine WBC (Auto) Crossmatch 02/06/20 02/06/20 02/06/20 05:40 08:45 11:52 WBC 16.3 H RBC 2.12 L Hgb 6.6 L Hct 20.3 L MCHC RDW 24.4 H Plt Count MCH Lymph % (Auto) Lymph # Lymph # (Auto) Seg Neutrophils % Seg Neuts % (Manual) 98.0 H Lymphocytes % (Manual) 1.0 L Seg Neutrophils # Seg Neutrophils # Man 16.0 H Basophils % (Manual) Nucleated RBC % Lymphocytes # (Manual) 0.2 L Monocytes # (Manual) Basophils # (Manual) PT INR Heparin Anti-Xa Level POC ABG pO2 ABG pH ABG Hemoglobin ABG Oxyhemoglobin ABG pO2 ABG HCO3 ABG O2 Saturation ABG Base Excess ABG Potassium ABG Chloride ABG Glucose Oxyhemoglobin Sodium Potassium Chloride Carbon Dioxide BUN Creatinine Glucose POC Glucose 347 H 132 H Lactic Acid Calcium AST Phosphorus Total Protein Albumin C-Reactive Protein Arterial Blood Glucose Arterial Blood Ionized Calcium Urine WBC (Auto) Crossmatch 02/06/20 02/07/20 02/07/20 18:26 00:08 05:41 WBC RBC Hgb Hct MCHC RDW Plt Count MCH Lymph % (Auto) Lymph # Lymph # (Auto) Seg Neutrophils % Seg Neuts % (Manual) Lymphocytes % (Manual) Seg Neutrophils # Seg Neutrophils # Man Basophils % (Manual) Nucleated RBC % Lymphocytes # (Manual) Monocytes # (Manual) Basophils # (Manual) PT INR Heparin Anti-Xa Level POC ABG pO2 ABG pH ABG Hemoglobin ABG Oxyhemoglobin ABG pO2 ABG HCO3 ABG O2 Saturation ABG Base Excess ABG Potassium ABG Chloride ABG Glucose Oxyhemoglobin Sodium Potassium Chloride Carbon Dioxide BUN Creatinine Glucose POC Glucose 114 H 111 H 164 H Lactic Acid Calcium AST Phosphorus Total Protein Albumin C-Reactive Protein Arterial Blood Glucose Arterial Blood Ionized Calcium Urine WBC (Auto) Crossmatch 1002/07/20 02/07/20 11:49 17:56 23:27 WBC RBC Hgb Hct MCHC RDW Plt Count MCH Lymph % (Auto) Lymph # Lymph # (Auto) Seg Neutrophils % Seg Neuts % (Manual) Lymphocytes % (Manual) Seg Neutrophils # Seg Neutrophils # Man Basophils % (Manual) Nucleated RBC % Lymphocytes # (Manual) Monocytes # (Manual) Basophils # (Manual) PT INR Heparin Anti-Xa Level POC ABG pO2 ABG pH ABG Hemoglobin ABG Oxyhemoglobin ABG pO2 ABG HCO3 ABG O2 Saturation ABG Base Excess ABG Potassium ABG Chloride ABG Glucose Oxyhemoglobin Sodium Potassium Chloride Carbon Dioxide BUN Creatinine Glucose POC Glucose 146 H 140 H 164 H Lactic Acid Calcium AST Phosphorus Total Protein Albumin C-Reactive Protein Arterial Blood Glucose Arterial Blood Ionized Calcium Urine WBC (Auto) Crossmatch 02/08/20 02/08/20 02/08/20 03:55 04:46 04:46 WBC RBC 2.30 L Hgb 7.3 L Hct 22.0 L MCHC RDW 23.9 H Plt Count MCH Lymph % (Auto) 8.5 L Lymph # Lymph # (Auto) 0.8 L Seg Neutrophils % 87.6 H Seg Neuts % (Manual) Lymphocytes % (Manual) Seg Neutrophils # 8.7 H Seg Neutrophils # Man Basophils % (Manual) Nucleated RBC % Lymphocytes # (Manual) Monocytes # (Manual) Basophils # (Manual) PT INR Heparin Anti-Xa Level POC ABG pO2 112.8 H ABG pH 7.511 H ABG Hemoglobin 7.8 L ABG Oxyhemoglobin ABG pO2 ABG HCO3 ABG O2 Saturation ABG Base Excess ABG Potassium 2.9 L ABG Chloride ABG Glucose 112 H Oxyhemoglobin Sodium Potassium 3.1 L Chloride Carbon Dioxide 31 H BUN 29 H Creatinine 0.3 L Glucose 108 H POC Glucose Lactic Acid Calcium AST Phosphorus Total Protein Albumin C-Reactive Protein Arterial Blood Glucose 112 H Arterial Blood Ionized Calcium Urine WBC (Auto) Crossmatch 02/08/20 02/08/20 02/08/20 05:31 10:15 12:10 WBC RBC Hgb Hct MCHC RDW Plt Count MCH Lymph % (Auto) Lymph # Lymph # (Auto) Seg Neutrophils % Seg Neuts % (Manual) Lymphocytes % (Manual) Seg Neutrophils # Seg Neutrophils # Man Basophils % (Manual) Nucleated RBC % Lymphocytes # (Manual) Monocytes # (Manual) Basophils # (Manual) PT INR Heparin Anti-Xa Level POC ABG pO2 ABG pH ABG Hemoglobin ABG Oxyhemoglobin ABG pO2 ABG HCO3 ABG O2 Saturation ABG Base Excess ABG Potassium ABG Chloride ABG Glucose Oxyhemoglobin Sodium Potassium Chloride Carbon Dioxide BUN Creatinine Glucose POC Glucose 117 H 164 H 170 H Lactic Acid Calcium AST Phosphorus Total Protein Albumin C-Reactive Protein Arterial Blood Glucose Arterial Blood Ionized Calcium Urine WBC (Auto) Crossmatch 02/08/20 02/08/20 02/09/20 12:23 23:50 03:04 WBC RBC Hgb Hct MCHC RDW Plt Count MCH Lymph % (Auto) Lymph # Lymph # (Auto) Seg Neutrophils % Seg Neuts % (Manual) Lymphocytes % (Manual) Seg Neutrophils # Seg Neutrophils # Man Basophils % (Manual) Nucleated RBC % Lymphocytes # (Manual) Monocytes # (Manual) Basophils # (Manual) PT INR Heparin Anti-Xa Level POC ABG pO2 ABG pH 7.501 H ABG Hemoglobin 7.5 L ABG Oxyhemoglobin ABG pO2 ABG HCO3 ABG O2 Saturation ABG Base Excess ABG Potassium ABG Chloride ABG Glucose 143 H Oxyhemoglobin Sodium Potassium Chloride Carbon Dioxide BUN Creatinine Glucose POC Glucose 164 H 126 H Lactic Acid Calcium AST Phosphorus Total Protein Albumin C-Reactive Protein Arterial Blood Glucose 143 H Arterial Blood Ionized Calcium Urine WBC (Auto) Crossmatch 02/09/20 02/09/20 02/09/20 05:57 08:00 12:39 WBC RBC Hgb Hct MCHC RDW Plt Count MCH Lymph % (Auto) Lymph # Lymph # (Auto) Seg Neutrophils % Seg Neuts % (Manual) Lymphocytes % (Manual) Seg Neutrophils # Seg Neutrophils # Man Basophils % (Manual) Nucleated RBC % Lymphocytes # (Manual) Monocytes # (Manual) Basophils # (Manual) PT INR Heparin Anti-Xa Level POC ABG pO2 ABG pH ABG Hemoglobin ABG Oxyhemoglobin ABG pO2 ABG HCO3 ABG O2 Saturation ABG Base Excess ABG Potassium ABG Chloride ABG Glucose Oxyhemoglobin Sodium Potassium 3.3 L Chloride Carbon Dioxide 34 H BUN 27 H Creatinine 0.4 L Glucose 127 H POC Glucose 160 H 154 H Lactic Acid Calcium 8.2 L AST Phosphorus Total Protein Albumin C-Reactive Protein Arterial Blood Glucose Arterial Blood Ionized Calcium Urine WBC (Auto) Crossmatch 02/09/20 02/09/20 02/09/20 18:17 23:43 Unknown WBC RBC 2.15 L Hgb 7.0 L Hct 20.8 L MCHC RDW 23.3 H Plt Count MCH 33 H Lymph % (Auto) Lymph # Lymph # (Auto) Seg Neutrophils % Seg Neuts % (Manual) Lymphocytes % (Manual) Seg Neutrophils # Seg Neutrophils # Man Basophils % (Manual) Nucleated RBC % Lymphocytes # (Manual) Monocytes # (Manual) Basophils # (Manual) PT INR Heparin Anti-Xa Level POC ABG pO2 ABG pH ABG Hemoglobin ABG Oxyhemoglobin ABG pO2 ABG HCO3 ABG O2 Saturation ABG Base Excess ABG Potassium ABG Chloride ABG Glucose Oxyhemoglobin Sodium Potassium Chloride Carbon Dioxide BUN Creatinine Glucose POC Glucose 152 H 177 H Lactic Acid Calcium AST Phosphorus Total Protein Albumin C-Reactive Protein Arterial Blood Glucose Arterial Blood Ionized Calcium Urine WBC (Auto) Crossmatch 02/10/20 02/10/20 02/10/20 04:38 05:24 11:44 WBC RBC Hgb Hct MCHC RDW Plt Count MCH Lymph % (Auto) Lymph # Lymph # (Auto) Seg Neutrophils % Seg Neuts % (Manual) Lymphocytes % (Manual) Seg Neutrophils # Seg Neutrophils # Man Basophils % (Manual) Nucleated RBC % Lymphocytes # (Manual) Monocytes # (Manual) Basophils # (Manual) PT INR Heparin Anti-Xa Level POC ABG pO2 ABG pH 7.502 H ABG Hemoglobin 6.2 L ABG Oxyhemoglobin ABG pO2 136.0 H ABG HCO3 29.3 H ABG O2 Saturation ABG Base Excess 5.7 H ABG Potassium ABG Chloride ABG Glucose Oxyhemoglobin Sodium Potassium Chloride Carbon Dioxide BUN Creatinine Glucose POC Glucose 113 H 176 H Lactic Acid Calcium AST Phosphorus Total Protein Albumin C-Reactive Protein Arterial Blood Glucose Arterial Blood Ionized Calcium Urine WBC (Auto) Crossmatch 02/10/20 02/11/20 02/11/20 23:42 03:43 04:12 WBC RBC 2.12 L Hgb 6.9 L Hct 20.6 L MCHC RDW 23.4 H Plt Count MCH 33 H Lymph % (Auto) Lymph # Lymph # (Auto) Seg Neutrophils % 84.7 H Seg Neuts % (Manual) 83.0 H Lymphocytes % (Manual) 11.0 L Seg Neutrophils # Seg Neutrophils # Man Basophils % (Manual) Nucleated RBC % Lymphocytes # (Manual) 1.0 L Monocytes # (Manual) Basophils # (Manual) PT INR Heparin Anti-Xa Level POC ABG pO2 112.6 H ABG pH 7.480 H ABG Hemoglobin 7.2 L ABG Oxyhemoglobin ABG pO2 ABG HCO3 ABG O2 Saturation ABG Base Excess ABG Potassium ABG Chloride ABG Glucose 154 H Oxyhemoglobin Sodium Potassium Chloride Carbon Dioxide BUN Creatinine Glucose POC Glucose 149 H Lactic Acid Calcium AST Phosphorus Total Protein Albumin C-Reactive Protein Arterial Blood Glucose 154 H Arterial Blood Ionized Calcium Urine WBC (Auto) Crossmatch 02/11/20 02/11/20 02/11/20 04:12 05:50 08:22 WBC RBC Hgb Hct MCHC RDW Plt Count MCH Lymph % (Auto) Lymph # Lymph # (Auto) Seg Neutrophils % Seg Neuts % (Manual) Lymphocytes % (Manual) Seg Neutrophils # Seg Neutrophils # Man Basophils % (Manual) Nucleated RBC % Lymphocytes # (Manual) Monocytes # (Manual) Basophils # (Manual) PT INR Heparin Anti-Xa Level POC ABG pO2 ABG pH ABG Hemoglobin ABG Oxyhemoglobin ABG pO2 ABG HCO3 ABG O2 Saturation ABG Base Excess ABG Potassium ABG Chloride ABG Glucose Oxyhemoglobin Sodium 146 H Potassium Chloride Carbon Dioxide BUN 24 H Creatinine 0.4 L Glucose 168 H POC Glucose 190 H Lactic Acid Calcium 8.0 L AST Phosphorus Total Protein Albumin C-Reactive Protein Arterial Blood Glucose Arterial Blood Ionized Calcium Urine WBC (Auto) Crossmatch See Detail 02/11/20 02/11/20 02/11/20 11:41 17:33 23:40 WBC RBC Hgb Hct MCHC RDW Plt Count MCH Lymph % (Auto) Lymph # Lymph # (Auto) Seg Neutrophils % Seg Neuts % (Manual) Lymphocytes % (Manual) Seg Neutrophils # Seg Neutrophils # Man Basophils % (Manual) Nucleated RBC % Lymphocytes # (Manual) Monocytes # (Manual) Basophils # (Manual) PT INR Heparin Anti-Xa Level POC ABG pO2 ABG pH ABG Hemoglobin ABG Oxyhemoglobin ABG pO2 ABG HCO3 ABG O2 Saturation ABG Base Excess ABG Potassium ABG Chloride ABG Glucose Oxyhemoglobin Sodium Potassium Chloride Carbon Dioxide BUN Creatinine Glucose POC Glucose 260 H 132 H 54 L Lactic Acid Calcium AST Phosphorus Total Protein Albumin C-Reactive Protein Arterial Blood Glucose Arterial Blood Ionized Calcium Urine WBC (Auto) Crossmatch 02/12/20 02/12/20 02/12/20 05:16 06:45 11:48 WBC RBC Hgb 8.6 L Hct 25.2 L MCHC RDW Plt Count MCH Lymph % (Auto) Lymph # Lymph # (Auto) Seg Neutrophils % Seg Neuts % (Manual) Lymphocytes % (Manual) Seg Neutrophils # Seg Neutrophils # Man Basophils % (Manual) Nucleated RBC % Lymphocytes # (Manual) Monocytes # (Manual) Basophils # (Manual) PT INR Heparin Anti-Xa Level POC ABG pO2 ABG pH ABG Hemoglobin ABG Oxyhemoglobin ABG pO2 ABG HCO3 ABG O2 Saturation ABG Base Excess ABG Potassium ABG Chloride ABG Glucose Oxyhemoglobin Sodium Potassium Chloride Carbon Dioxide BUN Creatinine Glucose POC Glucose 127 H 163 H Lactic Acid Calcium AST Phosphorus Total Protein Albumin C-Reactive Protein Arterial Blood Glucose Arterial Blood Ionized Calcium Urine WBC (Auto) Crossmatch 02/12/20 02/12/20 02/13/20 17:25 23:53 04:30 WBC RBC Hgb Hct MCHC RDW Plt Count MCH Lymph % (Auto) Lymph # Lymph # (Auto) Seg Neutrophils % Seg Neuts % (Manual) Lymphocytes % (Manual) Seg Neutrophils # Seg Neutrophils # Man Basophils % (Manual) Nucleated RBC % Lymphocytes # (Manual) Monocytes # (Manual) Basophils # (Manual) PT INR Heparin Anti-Xa Level POC ABG pO2 ABG pH 7.463 H ABG Hemoglobin ABG Oxyhemoglobin ABG pO2 98.4 H ABG HCO3 27.7 H ABG O2 Saturation ABG Base Excess 3.7 H ABG Potassium ABG Chloride ABG Glucose Oxyhemoglobin Sodium Potassium Chloride Carbon Dioxide BUN Creatinine Glucose POC Glucose 152 H 140 H Lactic Acid Calcium AST Phosphorus Total Protein Albumin C-Reactive Protein Arterial Blood Glucose Arterial Blood Ionized Calcium Urine WBC (Auto) Crossmatch 02/13/20 02/13/20 02/13/20 04:45 04:45 05:19 WBC RBC 2.73 L Hgb 8.7 L Hct 25.6 L MCHC RDW 21.3 H Plt Count MCH Lymph % (Auto) 12.0 L Lymph # Lymph # (Auto) 1.0 L Seg Neutrophils % 82.5 H Seg Neuts % (Manual) Lymphocytes % (Manual) Seg Neutrophils # Seg Neutrophils # Man Basophils % (Manual) Nucleated RBC % Lymphocytes # (Manual) Monocytes # (Manual) Basophils # (Manual) PT INR Heparin Anti-Xa Level POC ABG pO2 ABG pH ABG Hemoglobin ABG Oxyhemoglobin ABG pO2 ABG HCO3 ABG O2 Saturation ABG Base Excess ABG Potassium ABG Chloride ABG Glucose Oxyhemoglobin Sodium Potassium 3.4 L Chloride Carbon Dioxide 31 H BUN 24 H Creatinine 0.3 L Glucose 122 H POC Glucose 127 H Lactic Acid Calcium 8.0 L AST Phosphorus Total Protein 4.2 L Albumin 2.0 L C-Reactive Protein Arterial Blood Glucose Arterial Blood Ionized Calcium Urine WBC (Auto) Crossmatch 02/13/20 02/14/20 02/14/20 23:08 04:26 04:26 WBC RBC 2.74 L Hgb 8.7 L Hct 25.8 L MCHC RDW 21.3 H Plt Count MCH Lymph % (Auto) 13.2 L Lymph # Lymph # (Auto) Seg Neutrophils % 81.4 H Seg Neuts % (Manual) Lymphocytes % (Manual) Seg Neutrophils # 8.4 H Seg Neutrophils # Man Basophils % (Manual) Nucleated RBC % Lymphocytes # (Manual) Monocytes # (Manual) Basophils # (Manual) PT INR Heparin Anti-Xa Level POC ABG pO2 ABG pH ABG Hemoglobin ABG Oxyhemoglobin ABG pO2 ABG HCO3 ABG O2 Saturation ABG Base Excess ABG Potassium ABG Chloride ABG Glucose Oxyhemoglobin Sodium Potassium 3.4 L Chloride 107.6 H Carbon Dioxide BUN 20 H Creatinine 0.3 L Glucose 170 H POC Glucose 148 H Lactic Acid Calcium 8.2 L AST Phosphorus Total Protein Albumin C-Reactive Protein Arterial Blood Glucose Arterial Blood Ionized Calcium Urine WBC (Auto) Crossmatch 02/14/20 02/14/20 02/14/20 05:05 12:08 17:37 WBC RBC Hgb Hct MCHC RDW Plt Count MCH Lymph % (Auto) Lymph # Lymph # (Auto) Seg Neutrophils % Seg Neuts % (Manual) Lymphocytes % (Manual) Seg Neutrophils # Seg Neutrophils # Man Basophils % (Manual) Nucleated RBC % Lymphocytes # (Manual) Monocytes # (Manual) Basophils # (Manual) PT INR Heparin Anti-Xa Level POC ABG pO2 ABG pH ABG Hemoglobin ABG Oxyhemoglobin ABG pO2 ABG HCO3 ABG O2 Saturation ABG Base Excess ABG Potassium ABG Chloride ABG Glucose Oxyhemoglobin Sodium Potassium Chloride Carbon Dioxide BUN Creatinine Glucose POC Glucose 182 H 156 H 144 H Lactic Acid Calcium AST Phosphorus Total Protein Albumin C-Reactive Protein Arterial Blood Glucose Arterial Blood Ionized Calcium Urine WBC (Auto) Crossmatch 02/14/20 02/15/20 02/15/20 23:36 05:44 12:11 WBC RBC Hgb Hct MCHC RDW Plt Count MCH Lymph % (Auto) Lymph # Lymph # (Auto) Seg Neutrophils % Seg Neuts % (Manual) Lymphocytes % (Manual) Seg Neutrophils # Seg Neutrophils # Man Basophils % (Manual) Nucleated RBC % Lymphocytes # (Manual) Monocytes # (Manual) Basophils # (Manual) PT INR Heparin Anti-Xa Level POC ABG pO2 ABG pH ABG Hemoglobin ABG Oxyhemoglobin ABG pO2 ABG HCO3 ABG O2 Saturation ABG Base Excess ABG Potassium ABG Chloride ABG Glucose Oxyhemoglobin Sodium Potassium Chloride Carbon Dioxide BUN Creatinine Glucose POC Glucose 183 H 203 H 140 H Lactic Acid Calcium AST Phosphorus Total Protein Albumin C-Reactive Protein Arterial Blood Glucose Arterial Blood Ionized Calcium Urine WBC (Auto) Crossmatch 02/15/20 02/16/20 02/16/20 17:23 00:12 05:09 WBC RBC Hgb 8.8 L Hct 26.0 L MCHC RDW Plt Count MCH Lymph % (Auto) Lymph # Lymph # (Auto) Seg Neutrophils % Seg Neuts % (Manual) Lymphocytes % (Manual) Seg Neutrophils # Seg Neutrophils # Man Basophils % (Manual) Nucleated RBC % Lymphocytes # (Manual) Monocytes # (Manual) Basophils # (Manual) PT INR Heparin Anti-Xa Level POC ABG pO2 ABG pH ABG Hemoglobin ABG Oxyhemoglobin ABG pO2 ABG HCO3 ABG O2 Saturation ABG Base Excess ABG Potassium ABG Chloride ABG Glucose Oxyhemoglobin Sodium Potassium Chloride Carbon Dioxide BUN Creatinine Glucose POC Glucose 170 H 133 H Lactic Acid Calcium AST Phosphorus Total Protein Albumin C-Reactive Protein Arterial Blood Glucose Arterial Blood Ionized Calcium Urine WBC (Auto) Crossmatch 02/16/20 02/16/20 02/16/20 05:09 05:21 12:22 WBC RBC Hgb Hct MCHC RDW Plt Count MCH Lymph % (Auto) Lymph # Lymph # (Auto) Seg Neutrophils % Seg Neuts % (Manual) Lymphocytes % (Manual) Seg Neutrophils # Seg Neutrophils # Man Basophils % (Manual) Nucleated RBC % Lymphocytes # (Manual) Monocytes # (Manual) Basophils # (Manual) PT INR Heparin Anti-Xa Level POC ABG pO2 ABG pH ABG Hemoglobin ABG Oxyhemoglobin ABG pO2 ABG HCO3 ABG O2 Saturation ABG Base Excess ABG Potassium ABG Chloride ABG Glucose Oxyhemoglobin Sodium Potassium Chloride Carbon Dioxide 31 H BUN 18 H Creatinine 0.3 L Glucose 152 H POC Glucose 160 H 138 H Lactic Acid Calcium 7.9 L AST Phosphorus Total Protein Albumin C-Reactive Protein Arterial Blood Glucose Arterial Blood Ionized Calcium Urine WBC (Auto) Crossmatch 02/16/20 02/17/20 02/17/20 16:35 00:01 05:22 WBC RBC Hgb Hct MCHC RDW Plt Count MCH Lymph % (Auto) Lymph # Lymph # (Auto) Seg Neutrophils % Seg Neuts % (Manual) Lymphocytes % (Manual) Seg Neutrophils # Seg Neutrophils # Man Basophils % (Manual) Nucleated RBC % Lymphocytes # (Manual) Monocytes # (Manual) Basophils # (Manual) PT INR Heparin Anti-Xa Level POC ABG pO2 ABG pH ABG Hemoglobin ABG Oxyhemoglobin ABG pO2 ABG HCO3 ABG O2 Saturation ABG Base Excess ABG Potassium ABG Chloride ABG Glucose Oxyhemoglobin Sodium Potassium Chloride Carbon Dioxide BUN Creatinine Glucose POC Glucose 142 H 173 H 126 H Lactic Acid Calcium AST Phosphorus Total Protein Albumin C-Reactive Protein Arterial Blood Glucose Arterial Blood Ionized Calcium Urine WBC (Auto) Crossmatch 02/17/20 02/17/20 02/18/20 11:35 18:08 00:15 WBC RBC Hgb Hct MCHC RDW Plt Count MCH Lymph % (Auto) Lymph # Lymph # (Auto) Seg Neutrophils % Seg Neuts % (Manual) Lymphocytes % (Manual) Seg Neutrophils # Seg Neutrophils # Man Basophils % (Manual) Nucleated RBC % Lymphocytes # (Manual) Monocytes # (Manual) Basophils # (Manual) PT INR Heparin Anti-Xa Level POC ABG pO2 ABG pH ABG Hemoglobin ABG Oxyhemoglobin ABG pO2 ABG HCO3 ABG O2 Saturation ABG Base Excess ABG Potassium ABG Chloride ABG Glucose Oxyhemoglobin Sodium Potassium Chloride Carbon Dioxide BUN Creatinine Glucose POC Glucose 113 H 136 H 160 H Lactic Acid Calcium AST Phosphorus Total Protein Albumin C-Reactive Protein Arterial Blood Glucose Arterial Blood Ionized Calcium Urine WBC (Auto) Crossmatch 02/18/20 02/18/20 02/18/20 04:43 04:43 05:30 WBC RBC 3.24 L Hgb Hct MCHC RDW 20.1 H Plt Count 455 H MCH Lymph % (Auto) Lymph # Lymph # (Auto) Seg Neutrophils % Seg Neuts % (Manual) Lymphocytes % (Manual) Seg Neutrophils # Seg Neutrophils # Man Basophils % (Manual) Nucleated RBC % Lymphocytes # (Manual) Monocytes # (Manual) Basophils # (Manual) PT INR Heparin Anti-Xa Level POC ABG pO2 ABG pH ABG Hemoglobin ABG Oxyhemoglobin ABG pO2 ABG HCO3 ABG O2 Saturation ABG Base Excess ABG Potassium ABG Chloride ABG Glucose Oxyhemoglobin Sodium Potassium Chloride Carbon Dioxide BUN Creatinine 0.3 L Glucose 118 H POC Glucose 139 H Lactic Acid Calcium AST Phosphorus Total Protein Albumin C-Reactive Protein Arterial Blood Glucose Arterial Blood Ionized Calcium Urine WBC (Auto) Crossmatch 02/18/20 02/18/20 02/19/20 11:55 17:51 00:00 WBC RBC Hgb Hct MCHC RDW Plt Count MCH Lymph % (Auto) Lymph # Lymph # (Auto) Seg Neutrophils % Seg Neuts % (Manual) Lymphocytes % (Manual) Seg Neutrophils # Seg Neutrophils # Man Basophils % (Manual) Nucleated RBC % Lymphocytes # (Manual) Monocytes # (Manual) Basophils # (Manual) PT INR Heparin Anti-Xa Level POC ABG pO2 ABG pH ABG Hemoglobin ABG Oxyhemoglobin ABG pO2 ABG HCO3 ABG O2 Saturation ABG Base Excess ABG Potassium ABG Chloride ABG Glucose Oxyhemoglobin Sodium Potassium Chloride Carbon Dioxide BUN Creatinine Glucose POC Glucose 165 H 139 H 141 H Lactic Acid Calcium AST Phosphorus Total Protein Albumin C-Reactive Protein Arterial Blood Glucose Arterial Blood Ionized Calcium Urine WBC (Auto) Crossmatch 02/19/20 02/19/20 02/20/20 05:45 12:20 05:36 WBC RBC Hgb Hct MCHC RDW Plt Count MCH Lymph % (Auto) Lymph # Lymph # (Auto) Seg Neutrophils % Seg Neuts % (Manual) Lymphocytes % (Manual) Seg Neutrophils # Seg Neutrophils # Man Basophils % (Manual) Nucleated RBC % Lymphocytes # (Manual) Monocytes # (Manual) Basophils # (Manual) PT INR Heparin Anti-Xa Level POC ABG pO2 ABG pH ABG Hemoglobin ABG Oxyhemoglobin ABG pO2 ABG HCO3 ABG O2 Saturation ABG Base Excess ABG Potassium ABG Chloride ABG Glucose Oxyhemoglobin Sodium Potassium Chloride Carbon Dioxide BUN Creatinine Glucose POC Glucose 169 H 161 H 159 H Lactic Acid Calcium AST Phosphorus Total Protein Albumin C-Reactive Protein Arterial Blood Glucose Arterial Blood Ionized Calcium Urine WBC (Auto) Crossmatch 02/20/20 02/20/20 02/20/20 08:24 08:24 11:54 WBC RBC 2.74 L Hgb 8.7 L Hct 26.4 L MCHC RDW 19.4 H Plt Count MCH Lymph % (Auto) Lymph # Lymph # (Auto) Seg Neutrophils % Seg Neuts % (Manual) 79.0 H Lymphocytes % (Manual) 12.0 L Seg Neutrophils # Seg Neutrophils # Man Basophils % (Manual) 2.0 H Nucleated RBC % Lymphocytes # (Manual) 1.0 L Monocytes # (Manual) Basophils # (Manual) 0.2 H PT INR Heparin Anti-Xa Level POC ABG pO2 ABG pH ABG Hemoglobin ABG Oxyhemoglobin ABG pO2 ABG HCO3 ABG O2 Saturation ABG Base Excess ABG Potassium ABG Chloride ABG Glucose Oxyhemoglobin Sodium 134 L Potassium Chloride Carbon Dioxide BUN Creatinine 0.3 L Glucose 136 H POC Glucose 172 H Lactic Acid Calcium 8.0 L AST Phosphorus Total Protein Albumin C-Reactive Protein Arterial Blood Glucose Arterial Blood Ionized Calcium Urine WBC (Auto) Crossmatch 02/20/20 02/21/20 02/21/20 23:59 05:34 12:39 WBC RBC Hgb Hct MCHC RDW Plt Count MCH Lymph % (Auto) Lymph # Lymph # (Auto) Seg Neutrophils % Seg Neuts % (Manual) Lymphocytes % (Manual) Seg Neutrophils # Seg Neutrophils # Man Basophils % (Manual) Nucleated RBC % Lymphocytes # (Manual) Monocytes # (Manual) Basophils # (Manual) PT INR Heparin Anti-Xa Level POC ABG pO2 ABG pH ABG Hemoglobin ABG Oxyhemoglobin ABG pO2 ABG HCO3 ABG O2 Saturation ABG Base Excess ABG Potassium ABG Chloride ABG Glucose Oxyhemoglobin Sodium Potassium Chloride Carbon Dioxide BUN Creatinine Glucose POC Glucose 117 H 159 H 133 H Lactic Acid Calcium AST Phosphorus Total Protein Albumin C-Reactive Protein Arterial Blood Glucose Arterial Blood Ionized Calcium Urine WBC (Auto) Crossmatch Chest x-ray: pending Allied health notes reviewed: nursing
[2020-02-21] MEDS: MIRTAZAPINE 15 MG TAB PO SCH (21:00)
[2020-02-21] MEDS: DONEPEZIL 10 MG TAB PO SCH (21:01)
[2020-02-21] MEDS: traZODone 50 MG TAB PO SCH (21:02)
[2020-02-22] MEDS: INSULIN REGULAR, HUMAN 100 UNIT/ML 3ML VIAL SUB-Q SCH ×5 (00:03→23:54)
[2020-02-22] MEDS: PIPERACIL/TAZOBACTA 4.5/NS 100 4.5 GM/100 ML VIAL IV SCH ×3 (05:02→21:38)
[2020-02-22] MEDS: GLYCOPYRROLATE 2 MG TAB PO SCH ×2 (09:40→21:38)
[2020-02-22] MEDS: METOPROLOL TARTRATE 25 MG TAB PO SCH ×2 (09:40→21:38)
[2020-02-22] MEDS: MULTIVITAMINS 5 ML ORAL LIQUID PO SCH (09:40)
[2020-02-22] MEDS: FERROUS SULFATE 308 MG (62mg Elemental Iron) / 7 ML ELIXIR FEEDTUBE SCH (09:41)
[2020-02-22] MEDS: HEPARIN 5,000 UNIT/1 ML VIAL SUB-Q SCH ×2 (09:41→21:38)
--- NOTE | 2020-02-22 09:50 | Progress Note ---
Assessment and Plan Assessment and plan: 69-year-old -Turkish female with known history of dementia, and according to the does not talk much due to this. Diabetes mellitus and pulmonary embolism was admitted through the emergency room from the alf on 01/07 for decreased responsiveness, lethargy and hypotension. Patient had sepsis UTI and sacral decubitus ulcer evaluated by ID, medications optimized, patient went into acute hypoxic respiratory failure requiring intubation admitted to ICU, extubated, patient sustained cardiac arrest x2, Requiring reintubation, became vent dependent, surgery evaluated underwent trach and PEG, currently patient is awaiting LTAC/SNF placement Patient remains vent dependent, with severe metabolic and hypoxic encephalopathy. Patient has unstageable sacral decubitus ulcer status post debridement Sepsis on long-term antibiotics total 6 weeks per ID, stop date 02/27/2020 --Acute hypoxic respiratory failure; vent dependent s/p tracheostomy,02/13/2020 per surgery, trach care, ventilatory support status post extubation 02/02/2020 but had to be reintubated on 02/04 We will continue current care, pulmonary critical following --Dysphagia s/p PEG placement; continue PEG feeds per protocol --Shock/ septic shock; s/p Levophed,monitor off Levophed --s/p PEA arrest night of 01/28/2020 and 02/05/2020 s/p CPR per ACLS protocol --Anoxic/hypoxic brain injury[status post PEA cardiac arrest]; supportive care Poor prognosis, family aware --Unstageable sacral decubitus ulcer, infected/POA s/p wound debridement on 01/15. Continue wound vac , Proteus bacteremia On zosyn 4.5 g IV q8h total 6 weeks per ID stop date 02/27/2020 --Sepsis /Proteus bacteremia: Due to sacral decubitus Long-term Zosyn per ID stop date 02/27/2020[total 6 weeks] --Hypokalemia /Hypernatremia; resolved --Anemia ; received 1 unit PRBC, now Hb 8.8 -- Diabetes mellitus; Blood sugars well controlled, A1c 5.3 Accu-Chek,SSC, long-acting insulin as needed Tube feeding diet -- Hydropneumothorax, not POA Patient developed hydropneumothorax on 01/15. Surgery evaluated s/p chest tube placed on 01/15. Improved, s/p chest tube removed 01/22, extubated 02/02/2020 Reintubated 02/05/2020 , tracheostomy 02/13/2020 -- large Left pleural effusion 01/25 01/27; s/p bronchoscopy and Therapeutic suctioning of the lungs done by rig mechanic -- UTI (urinary tract infection)Completed antibiotics --h/o Bilateral pulmonary embolism 7 months ago Repeat CTA chest and LE doppler showed no acute PE or DVT, eliquis stopped -- Dementia: Continue donepezil --Severe protein-calorie malnutrition PEG placed 01/13. PEG feeds per protocol --DVT prophylaxis; SCDs --Disposition; possible LTAC placement Closely monitor the patient and adjust management as needed Plan of care reviewed with the patient and her nurse The high probability of a clinically significant, sudden or life threatening deterioration of the [Respiratory, STRIP MACHINE TENDER, CVs] system(s) required my full and direct attention, intervention and personal management. The aggregate critical care time was [31] minutes. This time is in addition to time spent performing reported procedures but includes the following: [x] Data Review and interpretation [x] Patient assessment and monitoring of vital signs [x] Documentation [x] Medication orders and management . Patient currently with PSV/CPAP FiO2 50%, PEEP of 6 and pressure support of 10. Continue PSV trials as tolerated and wean per pulmonary. Recall ID consultation. 02/08/2020. Patient with Proteus bacteremia likely from sacral decubitus. Continue Zosyn 4.5 g IV every 8 hours until stop date of 02/26. Patient still on mechanical ventilation AC mode rate 12, tidal volume 350, FiO2 30% and PEEP of 6. Poor prognosis. Consider hospice. Continue scopolamine for secretion control. Continue pressors to maintain MAP > 65; currently off. 02/09/2020. Continue Zosyn 4.5 g IV every 8 hours for Proteus bacteremia with end date of 02/27/2020. Continue wound care/wound VAC per surgery. Patient still on mechanical ventilation AC mode rate 12, tidal volume 350, FiO2 30% and PEEP of 6. Poor prognosis. Consider hospice. Continue scopolamine for secretion control. Currently off pressors. 02/09; evaluated by surgery, planning tracheostomy pending COVID test 02/10; possible tracheostomy today pending COVID test, surgery following 02/11; patient n.p.o. from midnight, possible tracheostomy tomorrow Received 1 unit of PRBC, Hb improved to 8.6 02/12; scheduled for tracheostomy today 02/13; trach care, bilateral upper extremity L edema and swelling, check venous Doppler 02/14; right upper extremity swelling edema, DC the line, elevate the limb 02/15;RUE venous Doppler no DVT, superficial thrombophlebitis, elevate the limb and supportive care 02/16; pending LTAC/SNF placement 02/17; pending LTAC/SNF placement 02/18; trach and PEG, on ventilatory support, awaiting LTAC placement. Sacral decubitus long-term a antibiotics Zosyn stop date 02/27/202002/19: Overnight patient experienced some hypotensive episodes. Was re suscitated with IV fluids. Doppler done over the course of the week showed a superficial right cephalic vein thrombosis. Will obtain intermittent labs this morning my understanding is that we are awaiting placement to LTAC. Patient is status post trach and PEG. 02/20; no significant change overnight, pending LTAC placement. 02/21; patient is still on Zosyn, blood pressure is within normal limit. Pending LTAC placement Disposition; Awaiting LTAC/SNF placement History Interval history: Patient was seen and evaluated this morning Patient has trach and on mechanical ventilator Hospitalist Physical - Physical exam Narrative exam: Patient has a trach and on mechanical ventilator The patient appeared well nourished and normally developed. Vital signs as documented. Head exam is unremarkable. No scleral icterus . Neck is without jugular venous distension, thyromegaly, or carotid bruits. Lungs are clear to auscultation. Cardiac exam reveals regular rate and Rhythm. Abdominal exam reveals normal bowel sounds, nontender, no organomegaly. Extremities are nonedematous and both femoral and pedal pulses are normal. STRIP MACHINE TENDER: Patient is aphasic and noncommunicative. Does not follow commands. Extremities are contracted. - Constitutional Vitals: Temp Pulse Resp BP Pulse Ox 97.9 F 93 H 28 H 109/76 100 02/22/20 08:00 02/22/20 09:40 02/22/20 09:30 02/22/20 09:40 02/22/20 09:30 General appearance: Present: no acute distress, well-nourished, other (Tracheostomy on vent) Results - Labs CBC & Chem 7: 02/20/20 08:24 02/20/20 08:24 Labs: Laboratory Last Values WBC 8.2 K/mm3 (4.5-11.0) 02/20/20 08:24 RBC 2.74 M/mm3 (3.65-5.03) L 02/20/20 08:24 Hgb 8.7 gm/dl (10.1-14.3) L 02/20/20 08:24 Hct 26.4 % (30.3-42.9) L 02/20/20 08:24 MCV 96 fl (79-97) 02/20/20 08:24 MCH 32 pg (28-32) 02/20/20 08:24 MCHC 33 % (30-34) 02/20/20 08:24 RDW 19.4 % (13.2-15.2) H 02/20/20 08:24 Plt Count 356 K/mm3 (140-440) 02/20/20 08:24 Lymph % (Auto) 13.2 % (13.4-35.0) L 02/14/20 04:26 [place] % (Auto) 3.6 % (0.0-7.3) 02/14/20 04:26 Eos % (Auto) 1.0 % (0.0-4.3) 02/14/20 04:26 Baso % (Auto) 0.8 % (0.0-1.8) 02/14/20 04:26 Lymph # (Auto) 1.4 K/mm3 (1.2-5.4) 02/14/20 04:26 [place] # (Auto) 0.4 K/mm3 (0.0-0.8) 02/14/20 04:26 Eos # (Auto) 0.1 K/mm3 (0.0-0.4) 02/14/20 04:26 Baso # (Auto) 0.1 K/mm3 (0.0-0.1) 02/14/20 04:26 Add Manual Diff Complete 02/20/20 08:24 Total Counted 100 02/20/20 08:24 Seg Neutrophils % 81.4 % (40.0-70.0) H 02/14/20 04:26 Seg Neuts % (Manual) 79.0 % (40.0-70.0) H 02/20/20 08:24 Band Neutrophils % 0 % 02/20/20 08:24 Lymphocytes % (Manual) 12.0 % (13.4-35.0) L 02/20/20 08:24 Reactive Lymphs % (Man) 0 % 02/20/20 08:24 Monocytes % (Manual) 4.0 % (0.0-7.3) 02/20/20 08:24 Eosinophils % (Manual) 3.0 % (0.0-4.3) 02/20/20 08:24 Basophils % (Manual) 2.0 % (0.0-1.8) H 02/20/20 08:24 Metamyelocytes % 0 % 02/20/20 08:24 Myelocytes % 0 % 02/20/20 08:24 Promyelocytes % 0 % 02/20/20 08:24 Blast Cells % 0 % 02/20/20 08:24 Nucleated RBC % Not Reportable 02/20/20 08:24 Seg Neutrophils # 8.4 K/mm3 (1.8-7.7) H 02/14/20 04:26 Seg Neutrophils # Man 6.5 K/mm3 (1.8-7.7) 02/20/20 08:24 Band Neutrophils # 0.0 K/mm3 02/20/20 08:24 Lymphocytes # (Manual) 1.0 K/mm3 (1.2-5.4) L 02/20/20 08:24 Abs React Lymphs (Man) 0.0 K/mm3 02/20/20 08:24 Monocytes # (Manual) 0.3 K/mm3 (0.0-0.8) 02/20/20 08:24 Eosinophils # (Manual) 0.2 K/mm3 (0.0-0.4) 02/20/20 08:24 Basophils # (Manual) 0.2 K/mm3 (0.0-0.1) H 02/20/20 08:24 Metamyelocytes # 0.0 K/mm3 02/20/20 08:24 Myelocytes # 0.0 K/mm3 02/20/20 08:24 Promyelocytes # 0.0 K/mm3 02/20/20 08:24 Blast Cells # 0.0 K/mm3 02/20/20 08:24 WBC Morphology Not Reportable 02/20/20 08:24 Hypersegmented Neuts Not Reportable 02/20/20 08:24 Hyposegmented Neuts Not Reportable 02/20/20 08:24 Hypogranular Neuts Not Reportable 02/20/20 08:24 Smudge Cells Not Reportable 02/20/20 08:24 Toxic Granulation Not Reportable 02/20/20 08:24 Toxic Vacuolation Not Reportable 02/20/20 08:24 Dohle Bodies Not Reportable 02/20/20 08:24 Pelger-Huet Anomaly Not Reportable 02/20/20 08:24 Lata Rods Not Reportable 02/20/20 08:24 Platelet Estimate Consistent w auto 02/20/20 08:24 Clumped Platelets Rare 02/20/20 08:24 Plt Clumps, EDTA Not Reportable 02/20/20 08:24 Large Platelets Few 02/20/20 08:24 Giant Platelets Not Reportable 02/20/20 08:24 Platelet Satelliting Not Reportable 02/20/20 08:24 Plt Morphology Comment Not Reportable 02/20/20 08:24 RBC Morphology Not Reportable 02/20/20 08:24 Dimorphic RBCs Not Reportable 02/20/20 08:24 Polychromasia Not Reportable 02/20/20 08:24 Hypochromasia Not Reportable 02/20/20 08:24 Poikilocytosis Not Reportable 02/20/20 08:24 Anisocytosis 1+ 02/20/20 08:24 Microcytosis Not Reportable 02/20/20 08:24 Macrocytosis 1+ 02/20/20 08:24 Spherocytes Not Reportable 02/20/20 08:24 Pappenheimer Bodies Not Reportable 02/20/20 08:24 Sickle Cells Not Reportable 02/20/20 08:24 Target Cells Not Reportable 02/20/20 08:24 Tear Drop Cells Not Reportable 02/20/20 08:24 Ovalocytes Not Reportable 02/20/20 08:24 Helmet Cells Not Reportable 02/20/20 08:24 Lombardi-Hankins Bodies Not Reportable 02/20/20 08:24 [place] Rings Not Reportable 02/20/20 08:24 [place] Cells Not Reportable 02/20/20 08:24 Bite Cells Not Reportable 02/20/20 08:24 Crenated Cell Not Reportable 02/20/20 08:24 Elliptocytes Not Reportable 02/20/20 08:24 Acanthocytes (Spur) Not Reportable 02/20/20 08:24 Rouleaux Not Reportable 02/20/20 08:24 Hemoglobin C Crystals Not Reportable 02/20/20 08:24 Schistocytes Not Reportable 02/20/20 08:24 Malaria parasites Not Reportable 02/20/20 08:24 Gideon Bodies Not Reportable 02/20/20 08:24 Hem Pathologist Commnt No 02/20/20 08:24 APTT 33.9 Sec. (24.2-36.6) 01/26/20 16:30 PT 14.4 Sec. (12.2-14.9) 02/02/20 05:25 INR 1.11 (0.87-1.13) 02/02/20 05:25 Heparin Anti-Xa Level 0.74 U.I./ml (0.3-0.7) H 01/28/20 08:50 ABG pH 7.463 pH Units (7.350-7.450) H 02/13/20 04:30 POC ABG pCO2 38.5 mmHg (32.0-48.0) 02/11/20 03:43 ABG pCO2 39.6 mm Hg 02/13/20 04:30 POC ABG pO2 112.6 mmHg (83-108) H 02/11/20 03:43 ABG pO2 98.4 mm Hg (80.0-90.0) H 02/13/20 04:30 POC ABG HCO3 28 02/11/20 03:43 ABG HCO3 27.7 mmol/L (20.0-26.0) H 02/13/20 04:30 ABG O2 Saturation 97.7 % (95.0-99.0) 02/13/20 04:30 ABG O2 Content 19.3 (0.0-44) 02/13/20 04:30 POC ABG Base Excess 4.2 02/11/20 03:43 ABG Base Excess 3.7 mmol/L (-2.0-3.0) H 02/13/20 04:30 ABG Hemoglobin 14.4 gm/dl (12.0-16.0) 02/13/20 04:30 ABG Oxyhemoglobin 96.7 (94-98) 02/09/20 03:04 ABG Carboxyhemoglobin 1.8 % (0.0-5.0) 02/13/20 04:30 ABG Methemoglobin 0.6 % (0.0-1.5) 02/13/20 04:30 ABG Sodium 138.5 mmol/L (136.0-145.0) 02/11/20 03:43 ABG Potassium 3.4 mmol/L (3.40-4.50) 02/11/20 03:43 ABG Chloride 107.0 mmol/L (98-107) 02/11/20 03:43 ABG Glucose 154 mg/dL (65-95) H 02/11/20 03:43 Oxyhemoglobin 95.3 % (95.0-99.0) 02/13/20 04:30 Carboxyhemoglobin TNR 02/08/20 03:55 FiO2 25 % 02/13/20 04:30 Sodium 134 mmol/L (137-145) L 02/20/20 08:24 Potassium 4.1 mmol/L (3.6-5.0) 02/20/20 08:24 Chloride 104.1 mmol/L (98-107) 02/20/20 08:24 Carbon Dioxide 23 mmol/L (22-30) 02/20/20 08:24 Anion Gap 11 mmol/L 02/20/20 08:24 BUN 17 mg/dL (7-17) 02/20/20 08:24 Creatinine 0.3 mg/dL (0.6-1.2) L 02/20/20 08:24 Estimated GFR > 60 ml/min 02/20/20 08:24 BUN/Creatinine Ratio 57 % 02/20/20 08:24 Glucose 136 mg/dL (65-100) H 02/20/20 08:24 POC Glucose 139 (70-105) H 02/22/20 06:14 Hemoglobin A1c 5.3 % (4-6) 01/11/20 00:45 Lactic Acid 1.30 mmol/L (0.7-2.0) 01/26/20 23:27 Calcium 8.0 mg/dL (8.4-10.2) L 02/20/20 08:24 Phosphorus 2.30 mg/dL (2.5-4.5) L 02/03/20 05:14 Magnesium 2.00 mg/dL (1.7-2.3) 02/16/20 05:09 Total Bilirubin 0.20 mg/dL (0.1-1.2) 02/13/20 04:45 AST 29 units/L (5-40) 02/13/20 04:45 ALT 38 units/L (7-56) 02/13/20 04:45 Alkaline Phosphatase 109 units/L (35-129) 02/13/20 04:45 C-Reactive Protein 14.80 mg/dL (0.00-1.30) H 01/29/20 Unknown Total Protein 4.2 g/dL (6.3-8.2) L 02/13/20 04:45 Albumin 2.0 g/dL (3.9-5) L 02/13/20 04:45 Albumin/Globulin Ratio 0.9 % 02/13/20 04:45 TSH 2.440 mlU/mL (0.270-4.200) 01/10/20 10:10 Procalcitonin 1.86 ng/mL (<0.15) 01/29/20 Unknown Arterial Blood Glucose 154 mg/dL (65-95) H 02/11/20 03:43 Arterial Blood Ionized Calcium 4.6 mg/dL (4.6-5.3) 02/11/20 03:43 Urine Color [place] (Yellow) 01/08/20 Unknown Urine Turbidity Cloudy (Clear) 01/08/20 Unknown Urine pH 5.0 (5.0-7.0) 01/08/20 Unknown Ur Specific [place] 1.018 (1.003-1.030) 01/08/20 Unknown Urine Protein 30 mg/dl mg/dL (Negative) 01/08/20 Unknown Urine Glucose (UA) Neg mg/dL (Negative) 01/08/20 Unknown Urine Ketones Neg mg/dL (Negative) 01/08/20 Unknown Urine Blood Mod (Negative) 01/08/20 Unknown Urine Nitrite Neg (Negative) 01/08/20 Unknown Urine Bilirubin Neg (Negative) 01/08/20 Unknown Urine Urobilinogen < 2.0 mg/dL (<2.0) 01/08/20 Unknown Ur Leukocyte Esterase Sm (Negative) 01/08/20 Unknown Urine WBC (Auto) 11.0 /HPF (0.0-6.0) H 01/08/20 Unknown Urine RBC (Auto) 7.0 /HPF (0.0-6.0) 01/08/20 Unknown U Epithel Cells (Auto) < 1.0 /HPF (0-13.0) 01/08/20 Unknown Urine Bacteria (Auto) 1+ /HPF (Negative) 01/08/20 Unknown Urine Mucus 2+ /HPF 01/08/20 Unknown Urine Yeast (Budding) 1+ /HPF 01/08/20 Unknown Vancomycin Trough 7.9 ug/mL (5.0-20.0) 01/17/20 16:04 Coronavirus (PCR) Negative (Negative) 02/10/20 10:06 Blood Type A POSITIVE 02/11/20 08:22 Antibody Screen Negative 02/11/20 08:22 Crossmatch See Detail 02/11/20 08:22 Mejía/IV: Voiding Method Indwelling Catheter IV Catheter Type [Left Wrist] INT / Saline Lock IV Catheter Type [Left Upper PICC Line arm] IV Catheter Type [Right Upper Mid-line arm] IV Catheter Type [Right Peripheral IV Forearm] Active Medications - Current Medications Current Medications: Generic Name Dose Route Start Last Admin Trade Name Freq PRN Reason Stop Dose Admin Acetaminophen 650 mg 01/08/20 23:14 01/18/20 06:03 Tylenol PO 650 mg Q4H PRN Administration Pain MILD(1-3)/Fever >100.5/GARCIA Lipase/Protease/Amylase 1 each 01/17/20 08:[address] 10,500 Unit FEEDTUBE PRN PRN For Clogged Feeding Tube Atorvastatin Calcium 10 mg 01/09/20 22:00 02/21/20 21:01 Atorvastatin PO 10 mg QHS BRO Administration Dextrose 0 ml 01/08/20 23:14 02/10/20 17:18 D50w (25gm) Syringe IV 10 ml Q30MIN PRN Administration Hypoglycemia Protocol Donepezil HCl 10 mg 01/09/20 22:00 02/21/20 21:01 Aricept PO 10 mg QHS BRO Administration Famotidine 20 mg 01/27/20 10:00 02/21/20 21:03 Pepcid PO 20 mg BID BRO Administration Ferrous Sulfate 308 mg 02/09/20 12:00 02/22/20 09:41 Ferrous Sulfate FEEDTUBE 308 mg DAILY BRO Administration Fluticasone Propionate 100 mcg 01/25/20 20:00 01/26/20 06:09 Flonase NS 100 mcg QDAY PRN Administration Nasal Congestion Glycopyrrolate 2 mg 02/18/20 22:00 02/22/20 09:40 Glycopyrrolate PO 2 mg BID BRO Administration Heparin Sodium (Porcine) 5,000 unit 01/28/20 10:00 02/22/20 09:41 Heparin SUB-Q 5,000 unit Q12HR BRO Administration Hydrophilic Ointment 1 applic 01/28/20 10:57 Vaseline Lip Therapy TP Q2HR PRN Dry Lips Piperacillin Sod/Tazobactam Sod 4.5 gm in 100 mls @ 200 mls/hr 01/19/20 14:00 02/22/20 05:02 Zosyn/Ns 4.5gm/100ml IV 02/27/20 22:29 200 mls/hr Q8HR BRO Administration Protocol Norepinephrine 4 mg in 250 mls @ 7.5 mls/hr 02/19/20 22:00 Levophed Drip 4 Mg/Ns 250 Ml IV TITR BRO Protocol 2 MCG/MIN Sodium Chloride 250 mls @ 5 mls/hr 02/21/20 05:45 02/21/20 07:00 Nacl 0.9% 250ml IV 02/23/20 07:44 5 mls/hr KVO ONE Administration Insulin Human Regular 0 unit 01/27/20 12:00 02/22/20 06:13 Humulin R SUB-Q Not Given Q6HR [facility] Protocol Loperamide HCl 2 mg 02/14/20 12:00 02/14/20 16:48 Loperamide PO 2 mg Q2H PRN Administration Diarrhea Magnesium Hydroxide 30 ml 01/08/20 23:14 Milk Of Magnesia PO Q4H PRN Constipation Metoprolol Tartrate 12.5 mg 02/18/20 14:00 02/22/20 09:40 Metoprolol PO 12.5 mg BID BRO Administration Mirtazapine 15 mg 01/09/20 22:00 02/21/20 21:00 Remeron PO 15 mg QHS BRO Administration Multi-Ingred Cream/Lotion/Oil/Oint 1 applic 01/28/20 10:57 Artificial Tears Ophth Oint OU Q4HR PRN Dry Eye(s) Multivitamins 5 ml 02/09/20 12:00 02/22/20 09:40 Centrum Liq PO 5 ml QDAY BRO Administration Ondansetron HCl 4 mg 01/08/20 23:14 Zofran IV Q8H PRN Nausea And Vomiting Oxycodone/Acetaminophen 1 tab 02/17/20 13:28 Percocet 5/325 PO Q4H PRN Pain, Moderate (4-6) Scopolamine 1 each 02/05/20 10:00 02/20/20 11:32 Transderm-Scop TD 1 each Q3D BRO Administration Simple Syrup 15 ml 01/17/20 08:37 Simple Syrup FEEDTUBE PRN PRN Hypoglycemia Simple Syrup 30 ml 01/17/20 08:37 02/11/20 23:43 Simple Syrup FEEDTUBE 30 ml PRN PRN Administration Hypoglycemia Sodium Bicarbonate 325 mg 01/17/20 08:37 Sodium Bicarbonate FEEDTUBE PRN PRN For Clogged Feeding Tube Sodium Chloride 10 ml 01/09/20 10:00 02/21/20 21:04 Sodium Chloride Flush Syringe 10 Ml IV 10 ml BID BRO Administration Sodium Chloride 10 ml 01/08/20 23:14 Sodium Chloride Flush Syringe 10 Ml IV PRN PRN LINE FLUSH Trazodone HCl 25 mg 01/09/20 22:00 02/21/20 21:02 Desyrel PO 25 mg QHS BRO Administration Nutrition/Malnutrition Assess - Dietary Evaluation Nutrition/Malnutrition Findings: Nutrition Notes Start: 01/09/20 12:13 Freq: Status: Active Protocol: Document 02/20/20 10:54 AL (Rec: 02/20/20 10:58 AL [email or web address]) Co-Sign 02/20/20 10:54 Nutrition Notes Initial or Follow up Reassessment Current Diagnosis Decubitus(Pressure Ulcer), Diabetes,Sepsis Other Pertinent Diagnosis UTI, dementia, PE, Sacral wound Current Diet Vital AF 1.2 at 50ml/hr Labs/Tests Reviewed Pertinent Medications Reviewed Height 5 ft 2 in Weight 71 kg [place] Body Weight (kg) 50.00 BMI 28.6 Weight change and time frame Wt change noted. Pt has edema. Weight Status Overweight Subjective/Other Information RD FU for stable TF. TF currently running at 50 ml/hr (goal rate). Percent of energy/protein needs met: 91%/100% Burn Absent Trauma Absent GI Symptoms Diarrhea Current % PO Negligible Minimum of two criteria Yes Fluid Accumulation Moderate to Severe (severe) Reduced Simulation Software Engineer Strength Measurably Reduced (severe) #3 Nutrition Diagnosis Malnutrition Diagnosis Progress(for reassessment Continues documentation) #2 Nutrition Diagnosis Inadequate oral intake Diagnosis Progress(for reassessment Continues documentation) #1 Nutrition Diagnosis Increased nutrient needs ( specify in comment below) Comments: protein Diagnosis Progress(for reassessment Continues documentation) Is patient on ventilator? Yes Is Patient Ambulatory and/or Out of Bed No [facility] 1425.768 Kcal/Kg value to use for calculation 22 Approximate Energy Requirements Using 1562 kcal/Kg Calculation Used for Recommendations Kcal/kg Additional Notes Pro: 81-98 g (1.25-1.5 g/kg) Fluid: 1ml/kcal Nutrition Intervention Change Diet Order: Continue Nutrition Support: Vital AF 1.2 at 50ml/hr Flush 250ml q4h per MD Kcal 1,440 Protein (gm) 90 Fluid (mL) 973 Goal #1 Meet at least 80% of kcal and protein needs via TF Goal #2 TF tolerance Goal #3 Wound healing Anticipated Discharge Needs: Continue TF Follow-Up By: 02/24/20 Additional Comments F/U for stable TF
[2020-02-22] MEDS: FAMOTIDINE 20 MG TAB PO SCH ×2 (10:35→21:39)
--- NOTE | 2020-02-22 13:36 | Progress Note ---
Assessment and Plan Severe sepsis with shock. Left lung atelectasis. Left pleural effusion. Acute hypoxemic respiratory failure. Acute possibly on chronic encephalopathy. History of diabetes. Urinary tract infection. History of pulmonary embolism, diagnosed several months ago. Sacral decubitus ulcer. Dementia. Anemia that is normocytic. - repeat CXR next 48 hours - continue daily SAT's and SBT's as tolerated - continue scopolamine for secretions - continue to rest on AC qhs for now - continue care as below otherwise; - complete AB's per ID rec's (Zosyn) - continue to wean supplemental oxygen for target O2 sat's > 92% acutely - VAP bundle addressed - continue lung protective strategies - continue bronchodilators with routine trach care and pulmonary hygiene per RT - wean per pulmonary driven protocols otherwise - continue accuchecks with glycemic control per SSI (While critically ill target blood glucose of 140-180 mg/dL; avoid hypoglycemia) - sedation prn for target RASS 0 to -1 - avoid nephrotoxins, renally dose all medications - continue to avoid benzodiazepine's, reduce the possibility of delirium - prn analgesia per CPOT score - Maintenance of sleep-wake cycle, avoid delirium - continue enteral nutritional support at goal rate as tolerated - G.I. & VTE prophylaxis with famotidine and heparin - PT/OT/ROM exercises - continue mobility protocols for pressure ulcer prophylaxis - Monitor hemodynamics closely - continue other care per attending / other consultants - discharge planning ongoing concurrently .... Re-evaluate in am & prn CONDITION: CRITICAL PROGNOSIS: GUARDED CODE STATUS: FULL CODE The high probability of a clinically significant, sudden or life-threatening deterioration of the [respiratory, cardiovascular & neurologic] system(s) required my full and direct attention, intervention and personal management. The aggregate critical care time was [32] minutes without overlap. Time includes spent on; [x] Data Review and interpretation [x] Patient assessment and monitoring of vital signs [x] Documentation [x] Medication orders and management Subjective Date of service: 02/22/20 Principal diagnosis: Septic Shock; S/P Cardiac Arrest; Ac. hypoxemic resp failure; UTI Interval history: Patient is seen today for: Severe sepsis with shock; S/P Cardiac Arrest; L. lung atelectasis / L. pleural effusion; Acute hypoxemic respiratory failure; Acute possibly on chronic encephalopathy; DM II; UTI; VTE Seen and examined at bedside; 24hour events reviewed; nursing and respiratory care staff consulted; no adverse overnight events reported to me; resting peacefully in bed; AMS is persistent; still weaning tenuously and tolerated only 1 hour on SBT earlier with desaturation's; no emesis or overt aspiration Objective Vital Signs - 12hr 02/22/20 02/22/20 02/22/20 02:00 02:31 03:01 Temperature Pulse Rate 108 H 106 H 105 H Pulse Rate [ From Monitor] Respiratory 27 H 20 23 Rate Blood Pressure 123/50 112/85 100/63 O2 Sat by Pulse 100 100 100 Oximetry O2 Sat by Pulse Oximetry [ Assessment] 02/22/20 02/22/20 02/22/20 03:31 04:00 04:01 Temperature 98.1 F Pulse Rate 107 H 102 H 103 H Pulse Rate [ 102 H From Monitor] Respiratory 19 11 L 25 H Rate Blood Pressure 131/67 112/83 O2 Sat by Pulse 100 100 100 Oximetry O2 Sat by Pulse Oximetry [ Assessment] 02/22/20 02/22/20 02/22/20 04:31 04:45 05:01 Temperature Pulse Rate 116 H 96 H 101 H Pulse Rate [ From Monitor] Respiratory 13 22 Rate Blood Pressure 121/45 121/45 110/57 O2 Sat by Pulse 100 100 100 Oximetry O2 Sat by Pulse Oximetry [ Assessment] 02/22/20 02/22/20 02/22/20 05:25 05:30 06:00 Temperature Pulse Rate 112 H 113 H Pulse Rate [ From Monitor] Respiratory 18 25 H Rate Blood Pressure 106/56 109/38 O2 Sat by Pulse 100 100 Oximetry O2 Sat by Pulse 100 Oximetry [ Assessment] 02/22/20 02/22/20 02/22/20 06:30 07:01 07:30 Temperature Pulse Rate 89 112 H 84 Pulse Rate [ From Monitor] Respiratory 16 24 19 Rate Blood Pressure 98/30 119/78 99/57 O2 Sat by Pulse 100 100 100 Oximetry O2 Sat by Pulse Oximetry [ Assessment] 02/22/20 02/22/20 02/22/20 08:00 08:20 08:30 Temperature 97.9 F Pulse Rate 104 H 101 H Pulse Rate [ From Monitor] Respiratory 24 22 Rate Blood Pressure 94/63 95/52 O2 Sat by Pulse 100 100 Oximetry O2 Sat by Pulse 100 Oximetry [ Assessment] 1002/22/20 02/22/20 09:00 09:30 09:40 Temperature Pulse Rate 97 H 101 H 93 H Pulse Rate [ From Monitor] Respiratory 23 28 H Rate Blood Pressure 113/72 109/76 109/76 O2 Sat by Pulse 100 100 Oximetry O2 Sat by Pulse Oximetry [ Assessment] 02/22/20 11:43 Temperature 98.2 F Pulse Rate Pulse Rate [ From Monitor] Respiratory Rate Blood Pressure O2 Sat by Pulse Oximetry O2 Sat by Pulse Oximetry [ Assessment] Constitutional: no acute distress, alert, other (elderly chronically ill looking female trach to [facility] [place] Eyes: non-icteric ENT: oropharynx moist, other (trach) Neck: supple, no lymphadenopathy, no JVD Effort: normal Ascultation: Bilateral: diminished breath sounds, rhonchi Percussion: Bilateral: not dull Cardiovascular: regular rate and rhythm, other (S1,S2) Gastrointestinal: normoactive bowel sounds, soft, non-tender, non-distended, other (PEG in place) Integumentary: decubitus ulcer Extremities: no cyanosis, pulses normal, no ischemia or petechiae, edema (bilateral upper extremity edema) Neurologic: pupils equal and round, other (awake and alert, not obeying commands) Psychiatric: other (Unable to assess secondary to mental status) CBC and BMP: 02/24/20 07:02 02/24/20 04:20 ABG, PT/INR, D-dimer: ABG ABG pH 7.463 pH Units (7.350-7.450) H 02/13/20 04:30 POC ABG pCO2 38.5 mmHg (32.0-48.0) 02/11/20 03:43 ABG pCO2 39.6 mm Hg 02/13/20 04:30 POC ABG pO2 112.6 mmHg (83-108) H 02/11/20 03:43 ABG pO2 98.4 mm Hg (80.0-90.0) H 02/13/20 04:30 POC ABG HCO3 28 02/11/20 03:43 ABG O2 Saturation 97.7 % (95.0-99.0) 02/13/20 04:30 PT/INR, D-dimer PT 14.4 Sec. (12.2-14.9) 02/02/20 05:25 INR 1.11 (0.87-1.13) 02/02/20 05:25 Abnormal lab findings: Abnormal Labs 01/08/20 01/08/20 01/08/20 16:29 16:29 16:29 WBC 13.5 H RBC Hgb Hct MCHC RDW 15.5 H Plt Count MCH Lymph % (Auto) Lymph # Lymph # (Auto) Seg Neutrophils % Seg Neuts % (Manual) 85.0 H Lymphocytes % (Manual) 11.0 L Seg Neutrophils # Seg Neutrophils # Man 11.5 H Basophils % (Manual) Nucleated RBC % Lymphocytes # (Manual) Monocytes # (Manual) Basophils # (Manual) PT INR Heparin Anti-Xa Level POC ABG pO2 ABG pH ABG Hemoglobin ABG Oxyhemoglobin ABG pO2 ABG HCO3 ABG O2 Saturation ABG Base Excess ABG Potassium ABG Chloride ABG Glucose Oxyhemoglobin Sodium 161 H* Potassium Chloride 125.5 H Carbon Dioxide 20 L BUN 30 H Creatinine Glucose 115 H POC Glucose Lactic Acid 2.20 H* Calcium 7.9 L AST 48 H Phosphorus Total Protein Albumin 2.5 L C-Reactive Protein Arterial Blood Glucose Arterial Blood Ionized Calcium Urine WBC (Auto) Crossmatch 01/08/20 01/08/20 01/08/20 19:02 23:30 Unknown WBC RBC Hgb Hct MCHC RDW Plt Count MCH Lymph % (Auto) Lymph # Lymph # (Auto) Seg Neutrophils % Seg Neuts % (Manual) Lymphocytes % (Manual) Seg Neutrophils # Seg Neutrophils # Man Basophils % (Manual) Nucleated RBC % Lymphocytes # (Manual) Monocytes # (Manual) Basophils # (Manual) PT INR Heparin Anti-Xa Level POC ABG pO2 ABG pH ABG Hemoglobin ABG Oxyhemoglobin ABG pO2 ABG HCO3 ABG O2 Saturation ABG Base Excess ABG Potassium ABG Chloride ABG Glucose Oxyhemoglobin Sodium Potassium Chloride Carbon Dioxide BUN Creatinine Glucose POC Glucose Lactic Acid 2.10 H* 2.50 H* Calcium AST Phosphorus Total Protein Albumin C-Reactive Protein Arterial Blood Glucose Arterial Blood Ionized Calcium Urine WBC (Auto) 11.0 H Crossmatch 01/09/20 01/09/20 01/09/20 00:19 00:54 05:52 WBC 13.5 H RBC 3.02 L Hgb 9.0 L D Hct 27.4 L D MCHC RDW Plt Count MCH Lymph % (Auto) 9.1 L Lymph # Lymph # (Auto) Seg Neutrophils % 87.6 H Seg Neuts % (Manual) Lymphocytes % (Manual) Seg Neutrophils # 11.8 H Seg Neutrophils # Man Basophils % (Manual) Nucleated RBC % Lymphocytes # (Manual) Monocytes # (Manual) Basophils # (Manual) PT INR Heparin Anti-Xa Level POC ABG pO2 ABG pH ABG Hemoglobin ABG Oxyhemoglobin ABG pO2 ABG HCO3 ABG O2 Saturation ABG Base Excess ABG Potassium ABG Chloride ABG Glucose Oxyhemoglobin Sodium Potassium Chloride Carbon Dioxide BUN Creatinine Glucose POC Glucose 118 H 116 H Lactic Acid Calcium AST Phosphorus Total Protein Albumin C-Reactive Protein Arterial Blood Glucose Arterial Blood Ionized Calcium Urine WBC (Auto) Crossmatch 01/09/20 01/09/20 01/09/20 05:52 05:52 13:03 WBC RBC Hgb Hct MCHC RDW Plt Count MCH Lymph % (Auto) Lymph # Lymph # (Auto) Seg Neutrophils % Seg Neuts % (Manual) Lymphocytes % (Manual) Seg Neutrophils # Seg Neutrophils # Man Basophils % (Manual) Nucleated RBC % Lymphocytes # (Manual) Monocytes # (Manual) Basophils # (Manual) PT 17.1 H INR 1.36 H Heparin Anti-Xa Level POC ABG pO2 ABG pH ABG Hemoglobin ABG Oxyhemoglobin ABG pO2 ABG HCO3 ABG O2 Saturation ABG Base Excess ABG Potassium ABG Chloride ABG Glucose Oxyhemoglobin Sodium 162 H* Potassium 3.0 L D Chloride 128.3 H Carbon Dioxide BUN 23 H Creatinine Glucose POC Glucose 55 L Lactic Acid Calcium 7.6 L AST Phosphorus Total Protein Albumin C-Reactive Protein Arterial Blood Glucose Arterial Blood Ionized Calcium Urine WBC (Auto) Crossmatch 01/09/20 01/09/20 01/09/20 21:22 21:50 22:28 WBC RBC Hgb Hct MCHC RDW Plt Count MCH Lymph % (Auto) Lymph # Lymph # (Auto) Seg Neutrophils % Seg Neuts % (Manual) Lymphocytes % (Manual) Seg Neutrophils # Seg Neutrophils # Man Basophils % (Manual) Nucleated RBC % Lymphocytes # (Manual) Monocytes # (Manual) Basophils # (Manual) PT INR Heparin Anti-Xa Level POC ABG pO2 ABG pH ABG Hemoglobin ABG Oxyhemoglobin ABG pO2 ABG HCO3 ABG O2 Saturation ABG Base Excess ABG Potassium ABG Chloride ABG Glucose Oxyhemoglobin Sodium 159 H Potassium 5.1 H D Chloride 128.5 H Carbon Dioxide 16 L BUN 23 H Creatinine Glucose 51 L POC Glucose 52 L 106 H Lactic Acid Calcium 8.2 L AST Phosphorus Total Protein Albumin C-Reactive Protein Arterial Blood Glucose Arterial Blood Ionized Calcium Urine WBC (Auto) Crossmatch 01/10/20 01/10/20 01/10/20 05:23 09:11 10:10 WBC 13.4 H RBC Hgb Hct MCHC RDW Plt Count MCH Lymph % (Auto) 7.2 L Lymph # 1.0 L Lymph # (Auto) Seg Neutrophils % 90.0 H Seg Neuts % (Manual) Lymphocytes % (Manual) Seg Neutrophils # 12.0 H Seg Neutrophils # Man Basophils % (Manual) Nucleated RBC % Lymphocytes # (Manual) Monocytes # (Manual) Basophils # (Manual) PT INR Heparin Anti-Xa Level POC ABG pO2 ABG pH ABG Hemoglobin ABG Oxyhemoglobin ABG pO2 ABG HCO3 ABG O2 Saturation ABG Base Excess ABG Potassium ABG Chloride ABG Glucose Oxyhemoglobin Sodium 155 H Potassium Chloride 122.8 H Carbon Dioxide 21 L BUN 19 H Creatinine Glucose POC Glucose 120 H Lactic Acid Calcium AST Phosphorus Total Protein Albumin C-Reactive Protein Arterial Blood Glucose Arterial Blood Ionized Calcium Urine WBC (Auto) Crossmatch 01/10/20 01/10/20 01/10/20 11:47 11:57 17:09 WBC RBC Hgb Hct MCHC RDW Plt Count MCH Lymph % (Auto) Lymph # Lymph # (Auto) Seg Neutrophils % Seg Neuts % (Manual) Lymphocytes % (Manual) Seg Neutrophils # Seg Neutrophils # Man Basophils % (Manual) Nucleated RBC % Lymphocytes # (Manual) Monocytes # (Manual) Basophils # (Manual) PT INR Heparin Anti-Xa Level POC ABG pO2 ABG pH ABG Hemoglobin ABG Oxyhemoglobin ABG pO2 ABG HCO3 ABG O2 Saturation ABG Base Excess ABG Potassium ABG Chloride ABG Glucose Oxyhemoglobin Sodium 153 H Potassium Chloride 118.3 H Carbon Dioxide 20 L BUN 19 H Creatinine Glucose 113 H POC Glucose 142 H 125 H Lactic Acid Calcium AST Phosphorus Total Protein Albumin C-Reactive Protein Arterial Blood Glucose Arterial Blood Ionized Calcium Urine WBC (Auto) Crossmatch 01/10/20 01/10/20 01/11/20 20:27 22:00 00:45 WBC RBC Hgb Hct MCHC RDW Plt Count MCH Lymph % (Auto) Lymph # Lymph # (Auto) Seg Neutrophils % Seg Neuts % (Manual) Lymphocytes % (Manual) Seg Neutrophils # Seg Neutrophils # Man Basophils % (Manual) Nucleated RBC % Lymphocytes # (Manual) Monocytes # (Manual) Basophils # (Manual) PT INR Heparin Anti-Xa Level POC ABG pO2 ABG pH ABG Hemoglobin ABG Oxyhemoglobin ABG pO2 ABG HCO3 ABG O2 Saturation ABG Base Excess ABG Potassium ABG Chloride ABG Glucose Oxyhemoglobin Sodium 153 H 154 H Potassium 3.3 L 3.2 L Chloride 117.0 H 118.9 H Carbon Dioxide 20 L BUN Creatinine Glucose POC Glucose 136 H Lactic Acid Calcium 8.3 L 8.0 L AST Phosphorus Total Protein Albumin C-Reactive Protein Arterial Blood Glucose Arterial Blood Ionized Calcium Urine WBC (Auto) Crossmatch 01/11/20 01/11/20 01/11/20 07:06 08:03 11:54 WBC RBC Hgb Hct MCHC RDW Plt Count MCH Lymph % (Auto) Lymph # Lymph # (Auto) Seg Neutrophils % Seg Neuts % (Manual) Lymphocytes % (Manual) Seg Neutrophils # Seg Neutrophils # Man Basophils % (Manual) Nucleated RBC % Lymphocytes # (Manual) Monocytes # (Manual) Basophils # (Manual) PT INR Heparin Anti-Xa Level POC ABG pO2 ABG pH ABG Hemoglobin ABG Oxyhemoglobin ABG pO2 ABG HCO3 ABG O2 Saturation ABG Base Excess ABG Potassium ABG Chloride ABG Glucose Oxyhemoglobin Sodium 151 H Potassium Chloride 118.7 H Carbon Dioxide 21 L BUN Creatinine Glucose 107 H POC Glucose 118 H 164 H Lactic Acid Calcium 8.3 L AST Phosphorus Total Protein Albumin C-Reactive Protein Arterial Blood Glucose Arterial Blood Ionized Calcium Urine WBC (Auto) Crossmatch 01/11/20 01/12/20 01/12/20 16:28 00:19 05:40 WBC RBC Hgb Hct MCHC RDW Plt Count MCH Lymph % (Auto) Lymph # Lymph # (Auto) Seg Neutrophils % Seg Neuts % (Manual) Lymphocytes % (Manual) Seg Neutrophils # Seg Neutrophils # Man Basophils % (Manual) Nucleated RBC % Lymphocytes # (Manual) Monocytes # (Manual) Basophils # (Manual) PT INR Heparin Anti-Xa Level POC ABG pO2 ABG pH ABG Hemoglobin ABG Oxyhemoglobin ABG pO2 ABG HCO3 ABG O2 Saturation ABG Base Excess ABG Potassium ABG Chloride ABG Glucose Oxyhemoglobin Sodium 148 H Potassium Chloride 111.6 H Carbon Dioxide 19 L BUN Creatinine Glucose 128 H POC Glucose 132 H 179 H Lactic Acid Calcium 8.2 L AST Phosphorus Total Protein Albumin C-Reactive Protein Arterial Blood Glucose Arterial Blood Ionized Calcium Urine WBC (Auto) Crossmatch 01/12/20 01/12/20 01/12/20 06:17 11:37 17:21 WBC RBC Hgb Hct MCHC RDW Plt Count MCH Lymph % (Auto) Lymph # Lymph # (Auto) Seg Neutrophils % Seg Neuts % (Manual) Lymphocytes % (Manual) Seg Neutrophils # Seg Neutrophils # Man Basophils % (Manual) Nucleated RBC % Lymphocytes # (Manual) Monocytes # (Manual) Basophils # (Manual) PT INR Heparin Anti-Xa Level POC ABG pO2 ABG pH ABG Hemoglobin ABG Oxyhemoglobin ABG pO2 ABG HCO3 ABG O2 Saturation ABG Base Excess ABG Potassium ABG Chloride ABG Glucose Oxyhemoglobin Sodium Potassium Chloride Carbon Dioxide BUN Creatinine Glucose POC Glucose 140 H 142 H 133 H Lactic Acid Calcium AST Phosphorus Total Protein Albumin C-Reactive Protein Arterial Blood Glucose Arterial Blood Ionized Calcium Urine WBC (Auto) Crossmatch 01/12/20 01/13/20 01/13/20 23:14 05:26 07:00 WBC RBC Hgb Hct MCHC RDW Plt Count MCH Lymph % (Auto) Lymph # Lymph # (Auto) Seg Neutrophils % Seg Neuts % (Manual) Lymphocytes % (Manual) Seg Neutrophils # Seg Neutrophils # Man Basophils % (Manual) Nucleated RBC % Lymphocytes # (Manual) Monocytes # (Manual) Basophils # (Manual) PT INR Heparin Anti-Xa Level POC ABG pO2 ABG pH ABG Hemoglobin ABG Oxyhemoglobin ABG pO2 ABG HCO3 ABG O2 Saturation ABG Base Excess ABG Potassium ABG Chloride ABG Glucose Oxyhemoglobin Sodium Potassium Chloride 110.0 H Carbon Dioxide BUN Creatinine Glucose 139 H POC Glucose 135 H 162 H Lactic Acid Calcium 7.8 L AST Phosphorus Total Protein Albumin C-Reactive Protein Arterial Blood Glucose Arterial Blood Ionized Calcium Urine WBC (Auto) Crossmatch 01/13/20 01/13/20 01/13/20 12:14 17:52 21:40 WBC RBC Hgb Hct MCHC RDW Plt Count MCH Lymph % (Auto) Lymph # Lymph # (Auto) Seg Neutrophils % Seg Neuts % (Manual) Lymphocytes % (Manual) Seg Neutrophils # Seg Neutrophils # Man Basophils % (Manual) Nucleated RBC % Lymphocytes # (Manual) Monocytes # (Manual) Basophils # (Manual) PT INR Heparin Anti-Xa Level POC ABG pO2 ABG pH ABG Hemoglobin ABG Oxyhemoglobin ABG pO2 ABG HCO3 ABG O2 Saturation ABG Base Excess ABG Potassium ABG Chloride ABG Glucose Oxyhemoglobin Sodium Potassium Chloride Carbon Dioxide BUN Creatinine Glucose POC Glucose 205 H 172 H 186 H Lactic Acid Calcium AST Phosphorus Total Protein Albumin C-Reactive Protein Arterial Blood Glucose Arterial Blood Ionized Calcium Urine WBC (Auto) Crossmatch 01/14/20 01/14/20 01/14/20 04:28 11:01 11:01 WBC 14.8 H RBC 3.20 L Hgb 9.5 L Hct 28.0 L MCHC RDW Plt Count MCH Lymph % (Auto) Lymph # Lymph # (Auto) Seg Neutrophils % Seg Neuts % (Manual) Lymphocytes % (Manual) Seg Neutrophils # Seg Neutrophils # Man Basophils % (Manual) Nucleated RBC % Lymphocytes # (Manual) Monocytes # (Manual) Basophils # (Manual) PT INR Heparin Anti-Xa Level POC ABG pO2 ABG pH ABG Hemoglobin ABG Oxyhemoglobin ABG pO2 ABG HCO3 ABG O2 Saturation ABG Base Excess ABG Potassium ABG Chloride ABG Glucose Oxyhemoglobin Sodium Potassium 3.2 L Chloride Carbon Dioxide BUN Creatinine 0.4 L Glucose POC Glucose 115 H Lactic Acid Calcium 8.0 L AST Phosphorus Total Protein Albumin C-Reactive Protein Arterial Blood Glucose Arterial Blood Ionized Calcium Urine WBC (Auto) Crossmatch 01/14/20 01/14/20 01/14/20 11:01 16:33 22:32 WBC RBC Hgb Hct MCHC RDW Plt Count MCH Lymph % (Auto) Lymph # Lymph # (Auto) Seg Neutrophils % Seg Neuts % (Manual) Lymphocytes % (Manual) Seg Neutrophils # Seg Neutrophils # Man Basophils % (Manual) Nucleated RBC % Lymphocytes # (Manual) Monocytes # (Manual) Basophils # (Manual) PT 15.8 H INR 1.23 H Heparin Anti-Xa Level POC ABG pO2 ABG pH ABG Hemoglobin ABG Oxyhemoglobin ABG pO2 ABG HCO3 ABG O2 Saturation ABG Base Excess ABG Potassium ABG Chloride ABG Glucose Oxyhemoglobin Sodium Potassium Chloride Carbon Dioxide BUN Creatinine Glucose POC Glucose 58 L 188 H Lactic Acid Calcium AST Phosphorus Total Protein Albumin C-Reactive Protein Arterial Blood Glucose Arterial Blood Ionized Calcium Urine WBC (Auto) Crossmatch 01/15/20 01/15/20 01/15/20 05:35 06:19 17:17 WBC RBC Hgb Hct MCHC RDW Plt Count MCH Lymph % (Auto) Lymph # Lymph # (Auto) Seg Neutrophils % Seg Neuts % (Manual) Lymphocytes % (Manual) Seg Neutrophils # Seg Neutrophils # Man Basophils % (Manual) Nucleated RBC % Lymphocytes # (Manual) Monocytes # (Manual) Basophils # (Manual) PT INR Heparin Anti-Xa Level POC ABG pO2 ABG pH ABG Hemoglobin ABG Oxyhemoglobin ABG pO2 ABG HCO3 ABG O2 Saturation ABG Base Excess ABG Potassium ABG Chloride ABG Glucose Oxyhemoglobin Sodium Potassium Chloride Carbon Dioxide BUN Creatinine 0.5 L Glucose 104 H POC Glucose 106 H 183 H Lactic Acid Calcium 7.8 L AST Phosphorus Total Protein Albumin C-Reactive Protein Arterial Blood Glucose Arterial Blood Ionized Calcium Urine WBC (Auto) Crossmatch 01/15/20 01/16/20 01/16/20 22:29 05:35 05:59 WBC 14.7 H RBC 3.04 L Hgb 9.0 L Hct 27.0 L MCHC RDW Plt Count MCH Lymph % (Auto) 9.1 L Lymph # Lymph # (Auto) Seg Neutrophils % 87.3 H Seg Neuts % (Manual) Lymphocytes % (Manual) Seg Neutrophils # 12.9 H Seg Neutrophils # Man Basophils % (Manual) Nucleated RBC % Lymphocytes # (Manual) Monocytes # (Manual) Basophils # (Manual) PT INR Heparin Anti-Xa Level POC ABG pO2 ABG pH ABG Hemoglobin ABG Oxyhemoglobin ABG pO2 ABG HCO3 ABG O2 Saturation ABG Base Excess ABG Potassium ABG Chloride ABG Glucose Oxyhemoglobin Sodium Potassium Chloride Carbon Dioxide BUN Creatinine Glucose POC Glucose 228 H 130 H Lactic Acid Calcium AST Phosphorus Total Protein Albumin C-Reactive Protein Arterial Blood Glucose Arterial Blood Ionized Calcium Urine WBC (Auto) Crossmatch 01/16/20 01/16/20 01/16/20 09:52 12:49 17:30 WBC RBC Hgb Hct MCHC RDW Plt Count MCH Lymph % (Auto) Lymph # Lymph # (Auto) Seg Neutrophils % Seg Neuts % (Manual) Lymphocytes % (Manual) Seg Neutrophils # Seg Neutrophils # Man Basophils % (Manual) Nucleated RBC % Lymphocytes # (Manual) Monocytes # (Manual) Basophils # (Manual) PT INR Heparin Anti-Xa Level POC ABG pO2 ABG pH ABG Hemoglobin ABG Oxyhemoglobin ABG pO2 ABG HCO3 ABG O2 Saturation ABG Base Excess ABG Potassium ABG Chloride ABG Glucose Oxyhemoglobin Sodium Potassium Chloride Carbon Dioxide BUN Creatinine Glucose POC Glucose 122 H 142 H 192 H Lactic Acid Calcium AST Phosphorus Total Protein Albumin C-Reactive Protein Arterial Blood Glucose Arterial Blood Ionized Calcium Urine WBC (Auto) Crossmatch 01/16/20 01/17/20 01/17/20 23:01 08:36 08:36 WBC 12.7 H RBC 2.98 L Hgb 8.9 L Hct 26.4 L MCHC RDW Plt Count MCH Lymph % (Auto) 8.8 L Lymph # 1.1 L Lymph # (Auto) Seg Neutrophils % 86.7 H Seg Neuts % (Manual) Lymphocytes % (Manual) Seg Neutrophils # 11.0 H Seg Neutrophils # Man Basophils % (Manual) Nucleated RBC % Lymphocytes # (Manual) Monocytes # (Manual) Basophils # (Manual) PT INR Heparin Anti-Xa Level POC ABG pO2 ABG pH ABG Hemoglobin ABG Oxyhemoglobin ABG pO2 ABG HCO3 ABG O2 Saturation ABG Base Excess ABG Potassium ABG Chloride ABG Glucose Oxyhemoglobin Sodium Potassium 3.3 L D Chloride Carbon Dioxide BUN Creatinine 0.4 L Glucose POC Glucose 141 H Lactic Acid Calcium 8.1 L AST Phosphorus Total Protein 4.6 L Albumin 1.6 L C-Reactive Protein Arterial Blood Glucose Arterial Blood Ionized Calcium Urine WBC (Auto) Crossmatch 01/17/20 01/17/20 01/18/20 11:43 23:56 06:27 WBC RBC Hgb Hct MCHC RDW Plt Count MCH Lymph % (Auto) Lymph # Lymph # (Auto) Seg Neutrophils % Seg Neuts % (Manual) Lymphocytes % (Manual) Seg Neutrophils # Seg Neutrophils # Man Basophils % (Manual) Nucleated RBC % Lymphocytes # (Manual) Monocytes # (Manual) Basophils # (Manual) PT INR Heparin Anti-Xa Level POC ABG pO2 ABG pH ABG Hemoglobin ABG Oxyhemoglobin ABG pO2 ABG HCO3 ABG O2 Saturation ABG Base Excess ABG Potassium ABG Chloride ABG Glucose Oxyhemoglobin Sodium Potassium Chloride Carbon Dioxide BUN Creatinine Glucose POC Glucose 137 H 215 H 122 H Lactic Acid Calcium AST Phosphorus Total Protein Albumin C-Reactive Protein Arterial Blood Glucose Arterial Blood Ionized Calcium Urine WBC (Auto) Crossmatch 01/18/20 01/18/20 01/18/20 07:31 07:31 11:39 WBC 12.1 H RBC 3.23 L Hgb 9.7 L Hct 28.7 L MCHC RDW Plt Count MCH Lymph % (Auto) 9.2 L Lymph # 1.1 L Lymph # (Auto) Seg Neutrophils % 85.0 H Seg Neuts % (Manual) Lymphocytes % (Manual) Seg Neutrophils # 10.3 H Seg Neutrophils # Man Basophils % (Manual) Nucleated RBC % Lymphocytes # (Manual) Monocytes # (Manual) Basophils # (Manual) PT INR Heparin Anti-Xa Level POC ABG pO2 ABG pH ABG Hemoglobin ABG Oxyhemoglobin ABG pO2 ABG HCO3 ABG O2 Saturation ABG Base Excess ABG Potassium ABG Chloride ABG Glucose Oxyhemoglobin Sodium Potassium Chloride Carbon Dioxide BUN Creatinine 0.4 L Glucose 108 H POC Glucose 172 H Lactic Acid Calcium AST Phosphorus Total Protein 5.3 L Albumin 2.1 L C-Reactive Protein Arterial Blood Glucose Arterial Blood Ionized Calcium Urine WBC (Auto) Crossmatch 01/18/20 01/19/20 01/19/20 18:22 00:15 11:30 WBC RBC Hgb Hct MCHC RDW Plt Count MCH Lymph % (Auto) Lymph # Lymph # (Auto) Seg Neutrophils % Seg Neuts % (Manual) Lymphocytes % (Manual) Seg Neutrophils # Seg Neutrophils # Man Basophils % (Manual) Nucleated RBC % Lymphocytes # (Manual) Monocytes # (Manual) Basophils # (Manual) PT INR Heparin Anti-Xa Level POC ABG pO2 ABG pH ABG Hemoglobin ABG Oxyhemoglobin ABG pO2 ABG HCO3 ABG O2 Saturation ABG Base Excess ABG Potassium ABG Chloride ABG Glucose Oxyhemoglobin Sodium Potassium Chloride Carbon Dioxide BUN Creatinine Glucose POC Glucose 119 H 135 H 163 H Lactic Acid Calcium AST Phosphorus Total Protein Albumin C-Reactive Protein Arterial Blood Glucose Arterial Blood Ionized Calcium Urine WBC (Auto) Crossmatch 01/19/20 01/19/20 01/20/20 17:44 22:59 03:44 WBC 11.1 H RBC 2.77 L Hgb 8.4 L Hct 25.0 L MCHC RDW Plt Count MCH Lymph % (Auto) Lymph # Lymph # (Auto) Seg Neutrophils % 74.6 H Seg Neuts % (Manual) Lymphocytes % (Manual) Seg Neutrophils # 8.3 H Seg Neutrophils # Man Basophils % (Manual) Nucleated RBC % Lymphocytes # (Manual) Monocytes # (Manual) Basophils # (Manual) PT INR Heparin Anti-Xa Level POC ABG pO2 ABG pH ABG Hemoglobin ABG Oxyhemoglobin ABG pO2 ABG HCO3 ABG O2 Saturation ABG Base Excess ABG Potassium ABG Chloride ABG Glucose Oxyhemoglobin Sodium Potassium Chloride Carbon Dioxide BUN Creatinine Glucose POC Glucose 161 H 182 H Lactic Acid Calcium AST Phosphorus Total Protein Albumin C-Reactive Protein Arterial Blood Glucose Arterial Blood Ionized Calcium Urine WBC (Auto) Crossmatch 01/20/20 01/21/20 01/21/20 03:44 00:07 05:51 WBC RBC 2.84 L Hgb 8.6 L Hct 25.5 L MCHC RDW Plt Count 463 H MCH Lymph % (Auto) Lymph # Lymph # (Auto) Seg Neutrophils % 76.9 H Seg Neuts % (Manual) Lymphocytes % (Manual) Seg Neutrophils # 7.8 H Seg Neutrophils # Man Basophils % (Manual) Nucleated RBC % Lymphocytes # (Manual) Monocytes # (Manual) Basophils # (Manual) PT INR Heparin Anti-Xa Level POC ABG pO2 ABG pH ABG Hemoglobin ABG Oxyhemoglobin ABG pO2 ABG HCO3 ABG O2 Saturation ABG Base Excess ABG Potassium ABG Chloride ABG Glucose Oxyhemoglobin Sodium Potassium Chloride Carbon Dioxide BUN Creatinine 0.4 L Glucose POC Glucose 68 L Lactic Acid Calcium 7.9 L AST Phosphorus Total Protein 4.7 L Albumin 1.9 L C-Reactive Protein Arterial Blood Glucose Arterial Blood Ionized Calcium Urine WBC (Auto) Crossmatch 01/21/20 01/21/20 01/21/20 05:51 05:58 11:25 WBC RBC Hgb Hct MCHC RDW Plt Count MCH Lymph % (Auto) Lymph # Lymph # (Auto) Seg Neutrophils % Seg Neuts % (Manual) Lymphocytes % (Manual) Seg Neutrophils # Seg Neutrophils # Man Basophils % (Manual) Nucleated RBC % Lymphocytes # (Manual) Monocytes # (Manual) Basophils # (Manual) PT INR Heparin Anti-Xa Level POC ABG pO2 ABG pH ABG Hemoglobin ABG Oxyhemoglobin ABG pO2 ABG HCO3 ABG O2 Saturation ABG Base Excess ABG Potassium ABG Chloride ABG Glucose Oxyhemoglobin Sodium Potassium Chloride Carbon Dioxide 20 L BUN Creatinine 0.5 L Glucose 130 H POC Glucose 185 H 163 H Lactic Acid Calcium 7.6 L AST Phosphorus Total Protein 5.0 L Albumin 1.9 L C-Reactive Protein Arterial Blood Glucose Arterial Blood Ionized Calcium Urine WBC (Auto) Crossmatch 01/21/20 01/21/20 01/22/20 16:22 21:17 01:28 WBC RBC 2.60 L Hgb 8.0 L Hct 23.3 L MCHC RDW Plt Count MCH Lymph % (Auto) Lymph # Lymph # (Auto) Seg Neutrophils % 74.8 H Seg Neuts % (Manual) Lymphocytes % (Manual) Seg Neutrophils # Seg Neutrophils # Man Basophils % (Manual) Nucleated RBC % Lymphocytes # (Manual) Monocytes # (Manual) Basophils # (Manual) PT INR Heparin Anti-Xa Level POC ABG pO2 ABG pH ABG Hemoglobin ABG Oxyhemoglobin ABG pO2 ABG HCO3 ABG O2 Saturation ABG Base Excess ABG Potassium ABG Chloride ABG Glucose Oxyhemoglobin Sodium Potassium Chloride Carbon Dioxide BUN Creatinine Glucose POC Glucose 177 H 67 L Lactic Acid Calcium AST Phosphorus Total Protein Albumin C-Reactive Protein Arterial Blood Glucose Arterial Blood Ionized Calcium Urine WBC (Auto) Crossmatch 01/22/20 01/22/20 01/22/20 01:28 01:28 12:06 WBC RBC Hgb Hct MCHC RDW Plt Count MCH Lymph % (Auto) Lymph # Lymph # (Auto) Seg Neutrophils % Seg Neuts % (Manual) Lymphocytes % (Manual) Seg Neutrophils # Seg Neutrophils # Man Basophils % (Manual) Nucleated RBC % Lymphocytes # (Manual) Monocytes # (Manual) Basophils # (Manual) PT INR Heparin Anti-Xa Level POC ABG pO2 ABG pH ABG Hemoglobin ABG Oxyhemoglobin ABG pO2 ABG HCO3 ABG O2 Saturation ABG Base Excess ABG Potassium ABG Chloride ABG Glucose Oxyhemoglobin Sodium Potassium Chloride 107.6 H Carbon Dioxide BUN Creatinine 0.4 L Glucose 152 H POC Glucose 203 H 140 H Lactic Acid Calcium 7.5 L AST Phosphorus Total Protein 4.0 L Albumin 2.0 L C-Reactive Protein Arterial Blood Glucose Arterial Blood Ionized Calcium Urine WBC (Auto) Crossmatch 01/22/20 01/22/20 01/23/20 16:24 22:55 06:10 WBC RBC 2.68 L Hgb 8.6 L Hct 24.1 L MCHC 36 H RDW Plt Count MCH Lymph % (Auto) Lymph # Lymph # (Auto) Seg Neutrophils % Seg Neuts % (Manual) 71.0 H Lymphocytes % (Manual) Seg Neutrophils # Seg Neutrophils # Man Basophils % (Manual) Nucleated RBC % Lymphocytes # (Manual) Monocytes # (Manual) Basophils # (Manual) PT INR Heparin Anti-Xa Level POC ABG pO2 ABG pH ABG Hemoglobin ABG Oxyhemoglobin ABG pO2 ABG HCO3 ABG O2 Saturation ABG Base Excess ABG Potassium ABG Chloride ABG Glucose Oxyhemoglobin Sodium Potassium Chloride Carbon Dioxide BUN Creatinine Glucose POC Glucose 205 H 196 H Lactic Acid Calcium AST Phosphorus Total Protein Albumin C-Reactive Protein Arterial Blood Glucose Arterial Blood Ionized Calcium Urine WBC (Auto) Crossmatch 01/23/20 01/23/20 01/23/20 06:10 07:35 11:59 WBC RBC Hgb Hct MCHC RDW Plt Count MCH Lymph % (Auto) Lymph # Lymph # (Auto) Seg Neutrophils % Seg Neuts % (Manual) Lymphocytes % (Manual) Seg Neutrophils # Seg Neutrophils # Man Basophils % (Manual) Nucleated RBC % Lymphocytes # (Manual) Monocytes # (Manual) Basophils # (Manual) PT INR Heparin Anti-Xa Level POC ABG pO2 ABG pH ABG Hemoglobin ABG Oxyhemoglobin ABG pO2 ABG HCO3 ABG O2 Saturation ABG Base Excess ABG Potassium ABG Chloride ABG Glucose Oxyhemoglobin Sodium Potassium Chloride 108.8 H Carbon Dioxide BUN Creatinine 0.4 L Glucose 105 H POC Glucose 111 H 123 H Lactic Acid Calcium 8.0 L AST Phosphorus Total Protein 4.9 L D Albumin 2.0 L C-Reactive Protein Arterial Blood Glucose Arterial Blood Ionized Calcium Urine WBC (Auto) Crossmatch 01/23/20 01/24/20 01/24/20 22:45 11:24 16:41 WBC RBC Hgb Hct MCHC RDW Plt Count MCH Lymph % (Auto) Lymph # Lymph # (Auto) Seg Neutrophils % Seg Neuts % (Manual) Lymphocytes % (Manual) Seg Neutrophils # Seg Neutrophils # Man Basophils % (Manual) Nucleated RBC % Lymphocytes # (Manual) Monocytes # (Manual) Basophils # (Manual) PT INR Heparin Anti-Xa Level POC ABG pO2 ABG pH ABG Hemoglobin ABG Oxyhemoglobin ABG pO2 ABG HCO3 ABG O2 Saturation ABG Base Excess ABG Potassium ABG Chloride ABG Glucose Oxyhemoglobin Sodium Potassium Chloride Carbon Dioxide BUN Creatinine Glucose POC Glucose 180 H 182 H 177 H Lactic Acid Calcium AST Phosphorus Total Protein Albumin C-Reactive Protein Arterial Blood Glucose Arterial Blood Ionized Calcium Urine WBC (Auto) Crossmatch 01/24/20 01/25/20 01/25/20 23:11 07:12 11:35 WBC RBC Hgb Hct MCHC RDW Plt Count MCH Lymph % (Auto) Lymph # Lymph # (Auto) Seg Neutrophils % Seg Neuts % (Manual) Lymphocytes % (Manual) Seg Neutrophils # Seg Neutrophils # Man Basophils % (Manual) Nucleated RBC % Lymphocytes # (Manual) Monocytes # (Manual) Basophils # (Manual) PT INR Heparin Anti-Xa Level POC ABG pO2 ABG pH ABG Hemoglobin ABG Oxyhemoglobin ABG pO2 ABG HCO3 ABG O2 Saturation ABG Base Excess ABG Potassium ABG Chloride ABG Glucose Oxyhemoglobin Sodium Potassium Chloride Carbon Dioxide BUN Creatinine Glucose POC Glucose 142 H 135 H 142 H Lactic Acid Calcium AST Phosphorus Total Protein Albumin C-Reactive Protein Arterial Blood Glucose Arterial Blood Ionized Calcium Urine WBC (Auto) Crossmatch 01/25/20 01/26/20 01/26/20 16:33 00:04 11:35 WBC RBC Hgb Hct MCHC RDW Plt Count MCH Lymph % (Auto) Lymph # Lymph # (Auto) Seg Neutrophils % Seg Neuts % (Manual) Lymphocytes % (Manual) Seg Neutrophils # Seg Neutrophils # Man Basophils % (Manual) Nucleated RBC % Lymphocytes # (Manual) Monocytes # (Manual) Basophils # (Manual) PT INR Heparin Anti-Xa Level POC ABG pO2 ABG pH ABG Hemoglobin ABG Oxyhemoglobin ABG pO2 ABG HCO3 ABG O2 Saturation ABG Base Excess ABG Potassium ABG Chloride ABG Glucose Oxyhemoglobin Sodium Potassium Chloride Carbon Dioxide BUN Creatinine Glucose POC Glucose 247 H 233 H 200 H Lactic Acid Calcium AST Phosphorus Total Protein Albumin C-Reactive Protein Arterial Blood Glucose Arterial Blood Ionized Calcium Urine WBC (Auto) Crossmatch 01/26/20 01/26/20 01/26/20 16:30 16:30 17:19 WBC RBC Hgb 7.4 L Hct 22.0 L MCHC RDW Plt Count MCH Lymph % (Auto) Lymph # Lymph # (Auto) Seg Neutrophils % Seg Neuts % (Manual) Lymphocytes % (Manual) Seg Neutrophils # Seg Neutrophils # Man Basophils % (Manual) Nucleated RBC % Lymphocytes # (Manual) Monocytes # (Manual) Basophils # (Manual) PT 18.4 H INR 1.50 H Heparin Anti-Xa Level POC ABG pO2 ABG pH ABG Hemoglobin ABG Oxyhemoglobin ABG pO2 ABG HCO3 ABG O2 Saturation ABG Base Excess ABG Potassium ABG Chloride ABG Glucose Oxyhemoglobin Sodium Potassium Chloride Carbon Dioxide BUN Creatinine Glucose POC Glucose 67 L Lactic Acid Calcium AST Phosphorus Total Protein Albumin C-Reactive Protein Arterial Blood Glucose Arterial Blood Ionized Calcium Urine WBC (Auto) Crossmatch 01/26/20 01/26/20 01/27/20 20:24 21:32 00:16 WBC RBC Hgb Hct MCHC RDW Plt Count MCH Lymph % (Auto) Lymph # Lymph # (Auto) Seg Neutrophils % Seg Neuts % (Manual) Lymphocytes % (Manual) Seg Neutrophils # Seg Neutrophils # Man Basophils % (Manual) Nucleated RBC % Lymphocytes # (Manual) Monocytes # (Manual) Basophils # (Manual) PT INR Heparin Anti-Xa Level POC ABG pO2 51.8 L ABG pH ABG Hemoglobin 8.5 L ABG Oxyhemoglobin 84.7 L ABG pO2 ABG HCO3 ABG O2 Saturation ABG Base Excess ABG Potassium ABG Chloride ABG Glucose Oxyhemoglobin Sodium Potassium Chloride Carbon Dioxide BUN Creatinine Glucose POC Glucose 162 H 141 H Lactic Acid Calcium AST Phosphorus Total Protein Albumin C-Reactive Protein Arterial Blood Glucose Arterial Blood Ionized Calcium Urine WBC (Auto) Crossmatch 01/27/20 01/27/20 01/27/20 01:42 02:18 05:57 WBC RBC Hgb Hct MCHC RDW Plt Count MCH Lymph % (Auto) Lymph # Lymph # (Auto) Seg Neutrophils % Seg Neuts % (Manual) Lymphocytes % (Manual) Seg Neutrophils # Seg Neutrophils # Man Basophils % (Manual) Nucleated RBC % Lymphocytes # (Manual) Monocytes # (Manual) Basophils # (Manual) PT INR Heparin Anti-Xa Level 2.00 H POC ABG pO2 ABG pH ABG Hemoglobin ABG Oxyhemoglobin ABG pO2 ABG HCO3 ABG O2 Saturation ABG Base Excess ABG Potassium ABG Chloride ABG Glucose Oxyhemoglobin Sodium Potassium Chloride Carbon Dioxide BUN Creatinine Glucose POC Glucose 183 H 124 H Lactic Acid Calcium AST Phosphorus Total Protein Albumin C-Reactive Protein Arterial Blood Glucose Arterial Blood Ionized Calcium Urine WBC (Auto) Crossmatch 01/27/20 01/27/20 01/27/20 06:30 06:30 12:23 WBC RBC 2.75 L Hgb 8.4 L Hct 24.9 L MCHC RDW 16.0 H Plt Count 474 H MCH Lymph % (Auto) 12.7 L Lymph # Lymph # (Auto) Seg Neutrophils % 83.2 H Seg Neuts % (Manual) Lymphocytes % (Manual) Seg Neutrophils # 8.4 H Seg Neutrophils # Man Basophils % (Manual) Nucleated RBC % Lymphocytes # (Manual) Monocytes # (Manual) Basophils # (Manual) PT INR Heparin Anti-Xa Level POC ABG pO2 ABG pH ABG Hemoglobin ABG Oxyhemoglobin ABG pO2 ABG HCO3 ABG O2 Saturation ABG Base Excess ABG Potassium ABG Chloride ABG Glucose Oxyhemoglobin Sodium Potassium 3.5 L Chloride 110.2 H Carbon Dioxide BUN Creatinine 0.4 L Glucose 101 H POC Glucose 126 H Lactic Acid Calcium 7.8 L AST Phosphorus Total Protein Albumin C-Reactive Protein Arterial Blood Glucose Arterial Blood Ionized Calcium Urine WBC (Auto) Crossmatch 01/27/20 01/27/20 01/28/20 17:31 23:40 00:00 WBC RBC Hgb Hct MCHC RDW Plt Count MCH Lymph % (Auto) Lymph # Lymph # (Auto) Seg Neutrophils % Seg Neuts % (Manual) Lymphocytes % (Manual) Seg Neutrophils # Seg Neutrophils # Man Basophils % (Manual) Nucleated RBC % Lymphocytes # (Manual) Monocytes # (Manual) Basophils # (Manual) PT INR Heparin Anti-Xa Level 2.00 H POC ABG pO2 ABG pH ABG Hemoglobin ABG Oxyhemoglobin ABG pO2 ABG HCO3 ABG O2 Saturation ABG Base Excess ABG Potassium ABG Chloride ABG Glucose Oxyhemoglobin Sodium Potassium Chloride Carbon Dioxide BUN Creatinine Glucose POC Glucose 133 H 136 H Lactic Acid Calcium AST Phosphorus Total Protein Albumin C-Reactive Protein Arterial Blood Glucose Arterial Blood Ionized Calcium Urine WBC (Auto) Crossmatch 01/28/20 01/28/20 01/28/20 04:26 04:26 05:35 WBC RBC Hgb 9.6 L Hct 28.5 L MCHC RDW Plt Count 508 H MCH Lymph % (Auto) Lymph # Lymph # (Auto) Seg Neutrophils % Seg Neuts % (Manual) Lymphocytes % (Manual) Seg Neutrophils # Seg Neutrophils # Man Basophils % (Manual) Nucleated RBC % Lymphocytes # (Manual) Monocytes # (Manual) Basophils # (Manual) PT INR Heparin Anti-Xa Level POC ABG pO2 ABG pH ABG Hemoglobin ABG Oxyhemoglobin ABG pO2 ABG HCO3 ABG O2 Saturation ABG Base Excess ABG Potassium ABG Chloride ABG Glucose Oxyhemoglobin Sodium Potassium Chloride Carbon Dioxide 19 L BUN 20 H Creatinine 0.5 L Glucose 103 H POC Glucose 135 H Lactic Acid Calcium 7.9 L AST Phosphorus Total Protein Albumin C-Reactive Protein Arterial Blood Glucose Arterial Blood Ionized Calcium Urine WBC (Auto) Crossmatch 01/28/20 01/28/20 01/28/20 08:50 11:10 11:51 WBC RBC Hgb Hct MCHC RDW Plt Count MCH Lymph % (Auto) Lymph # Lymph # (Auto) Seg Neutrophils % Seg Neuts % (Manual) Lymphocytes % (Manual) Seg Neutrophils # Seg Neutrophils # Man Basophils % (Manual) Nucleated RBC % Lymphocytes # (Manual) Monocytes # (Manual) Basophils # (Manual) PT INR Heparin Anti-Xa Level 0.74 H POC ABG pO2 67.2 L ABG pH ABG Hemoglobin 9.3 L ABG Oxyhemoglobin ABG pO2 ABG HCO3 ABG O2 Saturation ABG Base Excess ABG Potassium ABG Chloride ABG Glucose Oxyhemoglobin Sodium Potassium Chloride Carbon Dioxide BUN Creatinine Glucose POC Glucose 160 H Lactic Acid Calcium AST Phosphorus Total Protein Albumin C-Reactive Protein Arterial Blood Glucose Arterial Blood Ionized Calcium Urine WBC (Auto) Crossmatch 01/28/20 01/28/20 01/29/20 17:19 23:53 03:52 WBC RBC Hgb Hct MCHC RDW Plt Count MCH Lymph % (Auto) Lymph # Lymph # (Auto) Seg Neutrophils % Seg Neuts % (Manual) Lymphocytes % (Manual) Seg Neutrophils # Seg Neutrophils # Man Basophils % (Manual) Nucleated RBC % Lymphocytes # (Manual) Monocytes # (Manual) Basophils # (Manual) PT INR Heparin Anti-Xa Level POC ABG pO2 ABG pH 7.510 H ABG Hemoglobin 7.3 L ABG Oxyhemoglobin ABG pO2 357.0 H ABG HCO3 19.6 L ABG O2 Saturation 99.6 H ABG Base Excess -2.9 L ABG Potassium ABG Chloride ABG Glucose Oxyhemoglobin Sodium Potassium Chloride Carbon Dioxide BUN Creatinine Glucose POC Glucose 177 H 142 H Lactic Acid Calcium AST Phosphorus Total Protein Albumin C-Reactive Protein Arterial Blood Glucose Arterial Blood Ionized Calcium Urine WBC (Auto) Crossmatch 01/29/20 01/29/20 01/29/20 04:58 04:58 06:01 WBC 13.1 H RBC 2.75 L Hgb 8.6 L Hct 25.6 L MCHC RDW 17.7 H Plt Count MCH Lymph % (Auto) Lymph # Lymph # (Auto) Seg Neutrophils % Seg Neuts % (Manual) 91.0 H Lymphocytes % (Manual) 6.0 L Seg Neutrophils # Seg Neutrophils # Man 11.9 H Basophils % (Manual) Nucleated RBC % 1.0 H Lymphocytes # (Manual) 0.8 L Monocytes # (Manual) Basophils # (Manual) PT INR Heparin Anti-Xa Level POC ABG pO2 ABG pH ABG Hemoglobin ABG Oxyhemoglobin ABG pO2 ABG HCO3 ABG O2 Saturation ABG Base Excess ABG Potassium ABG Chloride ABG Glucose Oxyhemoglobin Sodium 148 H Potassium 3.5 L D Chloride 113.2 H Carbon Dioxide 21 L BUN 20 H Creatinine Glucose 137 H POC Glucose 167 H Lactic Acid Calcium 8.1 L AST Phosphorus Total Protein Albumin C-Reactive Protein Arterial Blood Glucose Arterial Blood Ionized Calcium Urine WBC (Auto) Crossmatch 01/29/20 01/29/20 01/29/20 11:45 17:52 23:49 WBC RBC Hgb Hct MCHC RDW Plt Count MCH Lymph % (Auto) Lymph # Lymph # (Auto) Seg Neutrophils % Seg Neuts % (Manual) Lymphocytes % (Manual) Seg Neutrophils # Seg Neutrophils # Man Basophils % (Manual) Nucleated RBC % Lymphocytes # (Manual) Monocytes # (Manual) Basophils # (Manual) PT INR Heparin Anti-Xa Level POC ABG pO2 ABG pH ABG Hemoglobin ABG Oxyhemoglobin ABG pO2 ABG HCO3 ABG O2 Saturation ABG Base Excess ABG Potassium ABG Chloride ABG Glucose Oxyhemoglobin Sodium Potassium Chloride Carbon Dioxide BUN Creatinine Glucose POC Glucose 185 H 226 H 141 H Lactic Acid Calcium AST Phosphorus Total Protein Albumin C-Reactive Protein Arterial Blood Glucose Arterial Blood Ionized Calcium Urine WBC (Auto) Crossmatch 01/29/20 01/30/20 01/30/20 Unknown 03:24 04:00 WBC RBC Hgb 7.8 L Hct 23.5 L MCHC RDW Plt Count MCH Lymph % (Auto) Lymph # Lymph # (Auto) Seg Neutrophils % Seg Neuts % (Manual) Lymphocytes % (Manual) Seg Neutrophils # Seg Neutrophils # Man Basophils % (Manual) Nucleated RBC % Lymphocytes # (Manual) Monocytes # (Manual) Basophils # (Manual) PT INR Heparin Anti-Xa Level POC ABG pO2 ABG pH 7.485 H ABG Hemoglobin 6.7 L ABG Oxyhemoglobin ABG pO2 102.0 H ABG HCO3 ABG O2 Saturation ABG Base Excess ABG Potassium ABG Chloride ABG Glucose Oxyhemoglobin Sodium Potassium Chloride Carbon Dioxide BUN Creatinine Glucose POC Glucose Lactic Acid Calcium AST Phosphorus Total Protein Albumin C-Reactive Protein 14.80 H Arterial Blood Glucose Arterial Blood Ionized Calcium Urine WBC (Auto) Crossmatch 01/30/20 01/30/20 01/30/20 05:50 11:15 17:07 WBC RBC Hgb Hct MCHC RDW Plt Count MCH Lymph % (Auto) Lymph # Lymph # (Auto) Seg Neutrophils % Seg Neuts % (Manual) Lymphocytes % (Manual) Seg Neutrophils # Seg Neutrophils # Man Basophils % (Manual) Nucleated RBC % Lymphocytes # (Manual) Monocytes # (Manual) Basophils # (Manual) PT INR Heparin Anti-Xa Level POC ABG pO2 ABG pH ABG Hemoglobin ABG Oxyhemoglobin ABG pO2 ABG HCO3 ABG O2 Saturation ABG Base Excess ABG Potassium ABG Chloride ABG Glucose Oxyhemoglobin Sodium Potassium Chloride Carbon Dioxide BUN Creatinine Glucose POC Glucose 122 H 207 H 124 H Lactic Acid Calcium AST Phosphorus Total Protein Albumin C-Reactive Protein Arterial Blood Glucose Arterial Blood Ionized Calcium Urine WBC (Auto) Crossmatch 01/30/20 01/31/20 01/31/20 17:08 00:10 04:52 WBC RBC Hgb Hct MCHC RDW Plt Count MCH Lymph % (Auto) Lymph # Lymph # (Auto) Seg Neutrophils % Seg Neuts % (Manual) Lymphocytes % (Manual) Seg Neutrophils # Seg Neutrophils # Man Basophils % (Manual) Nucleated RBC % Lymphocytes # (Manual) Monocytes # (Manual) Basophils # (Manual) PT INR Heparin Anti-Xa Level POC ABG pO2 ABG pH 7.504 H 7.486 H ABG Hemoglobin 7.4 L 6.2 L ABG Oxyhemoglobin ABG pO2 169.2 H 121.7 H ABG HCO3 27.1 H ABG O2 Saturation 99.1 H ABG Base Excess 3.4 H ABG Potassium ABG Chloride ABG Glucose Oxyhemoglobin Sodium Potassium Chloride Carbon Dioxide BUN Creatinine Glucose POC Glucose 191 H Lactic Acid Calcium AST Phosphorus Total Protein Albumin C-Reactive Protein Arterial Blood Glucose Arterial Blood Ionized Calcium Urine WBC (Auto) Crossmatch 01/31/20 01/31/20 01/31/20 05:37 11:59 12:40 WBC RBC 2.41 L Hgb 7.5 L Hct 22.3 L MCHC RDW 22.2 H Plt Count MCH Lymph % (Auto) Lymph # Lymph # (Auto) Seg Neutrophils % Seg Neuts % (Manual) 94.0 H Lymphocytes % (Manual) 2.0 L Seg Neutrophils # Seg Neutrophils # Man 9.4 H Basophils % (Manual) Nucleated RBC % Lymphocytes # (Manual) 0.2 L Monocytes # (Manual) Basophils # (Manual) PT INR Heparin Anti-Xa Level POC ABG pO2 ABG pH ABG Hemoglobin ABG Oxyhemoglobin ABG pO2 ABG HCO3 ABG O2 Saturation ABG Base Excess ABG Potassium ABG Chloride ABG Glucose Oxyhemoglobin Sodium Potassium Chloride Carbon Dioxide BUN Creatinine Glucose POC Glucose 175 H 220 H Lactic Acid Calcium AST Phosphorus Total Protein Albumin C-Reactive Protein Arterial Blood Glucose Arterial Blood Ionized Calcium Urine WBC (Auto) Crossmatch 01/31/20 01/31/20 01/31/20 12:40 14:40 18:18 WBC RBC Hgb Hct MCHC RDW Plt Count MCH Lymph % (Auto) Lymph # Lymph # (Auto) Seg Neutrophils % Seg Neuts % (Manual) Lymphocytes % (Manual) Seg Neutrophils # Seg Neutrophils # Man Basophils % (Manual) Nucleated RBC % Lymphocytes # (Manual) Monocytes # (Manual) Basophils # (Manual) PT INR Heparin Anti-Xa Level POC ABG pO2 124.7 H ABG pH 7.542 H ABG Hemoglobin 7.8 L ABG Oxyhemoglobin ABG pO2 ABG HCO3 ABG O2 Saturation ABG Base Excess ABG Potassium ABG Chloride ABG Glucose Oxyhemoglobin Sodium 151 H Potassium 2.1 L* D Chloride 108.9 H Carbon Dioxide BUN 22 H Creatinine Glucose 194 H POC Glucose 181 H Lactic Acid Calcium 8.1 L AST Phosphorus Total Protein 4.8 L Albumin 2.3 L C-Reactive Protein Arterial Blood Glucose Arterial Blood Ionized Calcium Urine WBC (Auto) Crossmatch 02/01/20 02/01/20 02/01/20 00:11 03:14 04:32 WBC 11.9 H RBC 2.47 L Hgb 7.6 L Hct 22.8 L MCHC RDW 22.7 H Plt Count MCH Lymph % (Auto) Lymph # Lymph # (Auto) Seg Neutrophils % Seg Neuts % (Manual) 90.0 H Lymphocytes % (Manual) 5.0 L Seg Neutrophils # Seg Neutrophils # Man 10.7 H Basophils % (Manual) Nucleated RBC % Lymphocytes # (Manual) 0.6 L Monocytes # (Manual) Basophils # (Manual) PT INR Heparin Anti-Xa Level POC ABG pO2 ABG pH 7.564 H ABG Hemoglobin 7.6 L ABG Oxyhemoglobin ABG pO2 124.1 H ABG HCO3 29.6 H ABG O2 Saturation ABG Base Excess 7.0 H ABG Potassium ABG Chloride ABG Glucose Oxyhemoglobin Sodium Potassium Chloride Carbon Dioxide BUN Creatinine Glucose POC Glucose 190 H Lactic Acid Calcium AST Phosphorus Total Protein Albumin C-Reactive Protein Arterial Blood Glucose Arterial Blood Ionized Calcium Urine WBC (Auto) Crossmatch 02/01/20 02/01/20 02/01/20 04:32 05:28 11:56 WBC RBC Hgb Hct MCHC RDW Plt Count MCH Lymph % (Auto) Lymph # Lymph # (Auto) Seg Neutrophils % Seg Neuts % (Manual) Lymphocytes % (Manual) Seg Neutrophils # Seg Neutrophils # Man Basophils % (Manual) Nucleated RBC % Lymphocytes # (Manual) Monocytes # (Manual) Basophils # (Manual) PT INR Heparin Anti-Xa Level POC ABG pO2 ABG pH ABG Hemoglobin ABG Oxyhemoglobin ABG pO2 ABG HCO3 ABG O2 Saturation ABG Base Excess ABG Potassium ABG Chloride ABG Glucose Oxyhemoglobin Sodium 149 H Potassium 2.6 L* D Chloride Carbon Dioxide 33 H BUN 23 H Creatinine 0.5 L Glucose 174 H POC Glucose 187 H 195 H Lactic Acid Calcium 8.0 L AST Phosphorus 1.60 L Total Protein Albumin C-Reactive Protein Arterial Blood Glucose Arterial Blood Ionized Calcium Urine WBC (Auto) Crossmatch 02/01/20 02/01/20 02/02/20 18:15 23:35 04:33 WBC RBC Hgb Hct MCHC RDW Plt Count MCH Lymph % (Auto) Lymph # Lymph # (Auto) Seg Neutrophils % Seg Neuts % (Manual) Lymphocytes % (Manual) Seg Neutrophils # Seg Neutrophils # Man Basophils % (Manual) Nucleated RBC % Lymphocytes # (Manual) Monocytes # (Manual) Basophils # (Manual) PT INR Heparin Anti-Xa Level POC ABG pO2 ABG pH 7.549 H ABG Hemoglobin 9.8 L ABG Oxyhemoglobin ABG pO2 ABG HCO3 ABG O2 Saturation ABG Base Excess ABG Potassium ABG Chloride ABG Glucose Oxyhemoglobin Sodium Potassium Chloride Carbon Dioxide BUN Creatinine Glucose POC Glucose 226 H 252 H Lactic Acid Calcium AST Phosphorus Total Protein Albumin C-Reactive Protein Arterial Blood Glucose Arterial Blood Ionized Calcium Urine WBC (Auto) Crossmatch 02/02/20 02/02/20 02/02/20 05:25 05:25 05:40 WBC 15.5 H RBC 2.43 L Hgb 7.6 L Hct 22.9 L MCHC RDW 23.6 H Plt Count MCH Lymph % (Auto) Lymph # Lymph # (Auto) Seg Neutrophils % Seg Neuts % (Manual) 89.0 H Lymphocytes % (Manual) 3.0 L Seg Neutrophils # Seg Neutrophils # Man 13.8 H Basophils % (Manual) Nucleated RBC % Lymphocytes # (Manual) 0.5 L Monocytes # (Manual) 0.9 H Basophils # (Manual) PT INR Heparin Anti-Xa Level POC ABG pO2 ABG pH ABG Hemoglobin ABG Oxyhemoglobin ABG pO2 ABG HCO3 ABG O2 Saturation ABG Base Excess ABG Potassium ABG Chloride ABG Glucose Oxyhemoglobin Sodium Potassium 2.6 L* Chloride Carbon Dioxide 33 H BUN 26 H Creatinine Glucose 175 H POC Glucose 181 H Lactic Acid Calcium 7.9 L AST Phosphorus Total Protein Albumin C-Reactive Protein Arterial Blood Glucose Arterial Blood Ionized Calcium Urine WBC (Auto) Crossmatch 02/02/20 02/02/20 02/02/20 11:55 14:45 17:18 WBC RBC Hgb Hct MCHC RDW Plt Count MCH Lymph % (Auto) Lymph # Lymph # (Auto) Seg Neutrophils % Seg Neuts % (Manual) Lymphocytes % (Manual) Seg Neutrophils # Seg Neutrophils # Man Basophils % (Manual) Nucleated RBC % Lymphocytes # (Manual) Monocytes # (Manual) Basophils # (Manual) PT INR Heparin Anti-Xa Level POC ABG pO2 ABG pH 7.56 H ABG Hemoglobin 7.6 L ABG Oxyhemoglobin ABG pO2 ABG HCO3 ABG O2 Saturation ABG Base Excess ABG Potassium ABG Chloride ABG Glucose Oxyhemoglobin Sodium Potassium Chloride Carbon Dioxide BUN Creatinine Glucose POC Glucose 226 H 227 H Lactic Acid Calcium AST Phosphorus Total Protein Albumin C-Reactive Protein Arterial Blood Glucose Arterial Blood Ionized Calcium Urine WBC (Auto) Crossmatch 02/02/20 02/03/20 02/03/20 20:54 00:02 05:14 WBC 18.7 H RBC 2.45 L Hgb 7.6 L Hct 23.2 L MCHC RDW 23.5 H Plt Count MCH Lymph % (Auto) Lymph # Lymph # (Auto) Seg Neutrophils % Seg Neuts % (Manual) 94.0 H Lymphocytes % (Manual) 3.0 L Seg Neutrophils # Seg Neutrophils # Man 17.6 H Basophils % (Manual) Nucleated RBC % Lymphocytes # (Manual) 0.6 L Monocytes # (Manual) Basophils # (Manual) PT INR Heparin Anti-Xa Level POC ABG pO2 ABG pH ABG Hemoglobin ABG Oxyhemoglobin ABG pO2 ABG HCO3 ABG O2 Saturation ABG Base Excess ABG Potassium ABG Chloride ABG Glucose Oxyhemoglobin Sodium Potassium 3.2 L D Chloride Carbon Dioxide BUN Creatinine Glucose POC Glucose 204 H Lactic Acid Calcium AST Phosphorus Total Protein Albumin C-Reactive Protein Arterial Blood Glucose Arterial Blood Ionized Calcium Urine WBC (Auto) Crossmatch 02/03/20 02/03/20 02/03/20 05:14 05:14 05:20 WBC RBC Hgb Hct MCHC RDW Plt Count MCH Lymph % (Auto) Lymph # Lymph # (Auto) Seg Neutrophils % Seg Neuts % (Manual) Lymphocytes % (Manual) Seg Neutrophils # Seg Neutrophils # Man Basophils % (Manual) Nucleated RBC % Lymphocytes # (Manual) Monocytes # (Manual) Basophils # (Manual) PT INR Heparin Anti-Xa Level POC ABG pO2 ABG pH ABG Hemoglobin ABG Oxyhemoglobin ABG pO2 ABG HCO3 ABG O2 Saturation ABG Base Excess ABG Potassium ABG Chloride ABG Glucose Oxyhemoglobin Sodium Potassium 3.1 L Chloride Carbon Dioxide 33 H BUN 29 H Creatinine 0.5 L Glucose 160 H POC Glucose 146 H Lactic Acid Calcium 7.9 L AST Phosphorus 2.30 L Total Protein 4.8 L Albumin 2.4 L C-Reactive Protein Arterial Blood Glucose Arterial Blood Ionized Calcium Urine WBC (Auto) Crossmatch 02/03/20 02/03/20 02/03/20 12:35 18:14 23:26 WBC RBC Hgb Hct MCHC RDW Plt Count MCH Lymph % (Auto) Lymph # Lymph # (Auto) Seg Neutrophils % Seg Neuts % (Manual) Lymphocytes % (Manual) Seg Neutrophils # Seg Neutrophils # Man Basophils % (Manual) Nucleated RBC % Lymphocytes # (Manual) Monocytes # (Manual) Basophils # (Manual) PT INR Heparin Anti-Xa Level POC ABG pO2 ABG pH ABG Hemoglobin ABG Oxyhemoglobin ABG pO2 ABG HCO3 ABG O2 Saturation ABG Base Excess ABG Potassium ABG Chloride ABG Glucose Oxyhemoglobin Sodium Potassium Chloride Carbon Dioxide BUN Creatinine Glucose POC Glucose 219 H 248 H 173 H Lactic Acid Calcium AST Phosphorus Total Protein Albumin C-Reactive Protein Arterial Blood Glucose Arterial Blood Ionized Calcium Urine WBC (Auto) Crossmatch 02/04/20 02/04/20 02/04/20 05:34 05:36 06:51 WBC RBC Hgb Hct MCHC RDW Plt Count MCH Lymph % (Auto) Lymph # Lymph # (Auto) Seg Neutrophils % Seg Neuts % (Manual) Lymphocytes % (Manual) Seg Neutrophils # Seg Neutrophils # Man Basophils % (Manual) Nucleated RBC % Lymphocytes # (Manual) Monocytes # (Manual) Basophils # (Manual) PT INR Heparin Anti-Xa Level POC ABG pO2 ABG pH ABG Hemoglobin ABG Oxyhemoglobin ABG pO2 ABG HCO3 ABG O2 Saturation ABG Base Excess ABG Potassium ABG Chloride ABG Glucose Oxyhemoglobin Sodium Potassium Chloride Carbon Dioxide BUN Creatinine Glucose POC Glucose 56 L 64 L 127 H Lactic Acid Calcium AST Phosphorus Total Protein Albumin C-Reactive Protein Arterial Blood Glucose Arterial Blood Ionized Calcium Urine WBC (Auto) Crossmatch 02/04/20 02/04/20 02/04/20 11:57 13:42 13:53 WBC 19.2 H RBC 2.48 L Hgb 7.8 L Hct 23.5 L MCHC RDW 24.2 H Plt Count MCH Lymph % (Auto) Lymph # Lymph # (Auto) Seg Neutrophils % Seg Neuts % (Manual) 97.0 H Lymphocytes % (Manual) 2.0 L Seg Neutrophils # Seg Neutrophils # Man 18.6 H Basophils % (Manual) Nucleated RBC % Lymphocytes # (Manual) 0.4 L Monocytes # (Manual) Basophils # (Manual) PT INR Heparin Anti-Xa Level POC ABG pO2 118.2 H ABG pH 7.525 H ABG Hemoglobin 8.7 L ABG Oxyhemoglobin ABG pO2 ABG HCO3 ABG O2 Saturation ABG Base Excess ABG Potassium 2.8 L ABG Chloride ABG Glucose 185 H Oxyhemoglobin Sodium Potassium Chloride Carbon Dioxide BUN Creatinine Glucose POC Glucose 224 H Lactic Acid Calcium AST Phosphorus Total Protein Albumin C-Reactive Protein Arterial Blood Glucose 185 H Arterial Blood Ionized Calcium 4.5 L Urine WBC (Auto) Crossmatch 02/04/20 02/04/20 02/04/20 13:53 18:15 23:35 WBC RBC Hgb Hct MCHC RDW Plt Count MCH Lymph % (Auto) Lymph # Lymph # (Auto) Seg Neutrophils % Seg Neuts % (Manual) Lymphocytes % (Manual) Seg Neutrophils # Seg Neutrophils # Man Basophils % (Manual) Nucleated RBC % Lymphocytes # (Manual) Monocytes # (Manual) Basophils # (Manual) PT INR Heparin Anti-Xa Level POC ABG pO2 ABG pH ABG Hemoglobin ABG Oxyhemoglobin ABG pO2 ABG HCO3 ABG O2 Saturation ABG Base Excess ABG Potassium ABG Chloride ABG Glucose Oxyhemoglobin Sodium 147 H Potassium 2.8 L* Chloride Carbon Dioxide 38 H BUN 33 H Creatinine 0.5 L Glucose 202 H POC Glucose 215 H 197 H Lactic Acid Calcium AST Phosphorus Total Protein Albumin C-Reactive Protein Arterial Blood Glucose Arterial Blood Ionized Calcium Urine WBC (Auto) Crossmatch 02/05/20 02/05/20 02/05/20 01:03 04:00 04:00 WBC 26.7 H RBC 2.59 L Hgb 8.1 L Hct 24.6 L MCHC RDW 24.1 H Plt Count MCH Lymph % (Auto) 1.6 L Lymph # Lymph # (Auto) 0.4 L Seg Neutrophils % Seg Neuts % (Manual) Lymphocytes % (Manual) Seg Neutrophils # 25.9 H Seg Neutrophils # Man Basophils % (Manual) Nucleated RBC % Lymphocytes # (Manual) Monocytes # (Manual) Basophils # (Manual) PT INR Heparin Anti-Xa Level POC ABG pO2 ABG pH ABG Hemoglobin 7.1 L ABG Oxyhemoglobin ABG pO2 50.7 L ABG HCO3 29.6 H ABG O2 Saturation 82.7 L ABG Base Excess 4.8 H ABG Potassium ABG Chloride ABG Glucose Oxyhemoglobin 81.0 L Sodium 146 H Potassium Chloride Carbon Dioxide 32 H BUN 35 H Creatinine 0.5 L Glucose 226 H POC Glucose Lactic Acid Calcium AST Phosphorus Total Protein 5.1 L Albumin 2.2 L C-Reactive Protein Arterial Blood Glucose Arterial Blood Ionized Calcium Urine WBC (Auto) Crossmatch 02/05/20 02/05/20 02/06/20 05:32 17:56 00:19 WBC RBC Hgb Hct MCHC RDW Plt Count MCH Lymph % (Auto) Lymph # Lymph # (Auto) Seg Neutrophils % Seg Neuts % (Manual) Lymphocytes % (Manual) Seg Neutrophils # Seg Neutrophils # Man Basophils % (Manual) Nucleated RBC % Lymphocytes # (Manual) Monocytes # (Manual) Basophils # (Manual) PT INR Heparin Anti-Xa Level POC ABG pO2 ABG pH ABG Hemoglobin ABG Oxyhemoglobin ABG pO2 ABG HCO3 ABG O2 Saturation ABG Base Excess ABG Potassium ABG Chloride ABG Glucose Oxyhemoglobin Sodium Potassium Chloride Carbon Dioxide BUN Creatinine Glucose POC Glucose 239 H 175 H 309 H Lactic Acid Calcium AST Phosphorus Total Protein Albumin C-Reactive Protein Arterial Blood Glucose Arterial Blood Ionized Calcium Urine WBC (Auto) Crossmatch 02/06/20 02/06/20 02/06/20 04:26 04:27 05:11 WBC RBC Hgb Hct MCHC RDW Plt Count MCH Lymph % (Auto) Lymph # Lymph # (Auto) Seg Neutrophils % Seg Neuts % (Manual) Lymphocytes % (Manual) Seg Neutrophils # Seg Neutrophils # Man Basophils % (Manual) Nucleated RBC % Lymphocytes # (Manual) Monocytes # (Manual) Basophils # (Manual) PT INR Heparin Anti-Xa Level POC ABG pO2 175.3 H 157.2 H ABG pH 7.502 H 7.551 H ABG Hemoglobin 10.8 L 7.3 L ABG Oxyhemoglobin 98.3 H ABG pO2 ABG HCO3 ABG O2 Saturation ABG Base Excess ABG Potassium 3.3 L ABG Chloride 109.0 H ABG Glucose 148 H Oxyhemoglobin Sodium 148 H Potassium 3.0 L Chloride 107.3 H Carbon Dioxide 33 H BUN 33 H Creatinine 0.5 L Glucose 283 H POC Glucose Lactic Acid Calcium 7.9 L AST Phosphorus Total Protein 3.6 L D Albumin 1.2 L C-Reactive Protein Arterial Blood Glucose 148 H Arterial Blood Ionized Calcium Urine WBC (Auto) Crossmatch 02/06/20 02/06/20 02/06/20 05:40 08:45 11:52 WBC 16.3 H RBC 2.12 L Hgb 6.6 L Hct 20.3 L MCHC RDW 24.4 H Plt Count MCH Lymph % (Auto) Lymph # Lymph # (Auto) Seg Neutrophils % Seg Neuts % (Manual) 98.0 H Lymphocytes % (Manual) 1.0 L Seg Neutrophils # Seg Neutrophils # Man 16.0 H Basophils % (Manual) Nucleated RBC % Lymphocytes # (Manual) 0.2 L Monocytes # (Manual) Basophils # (Manual) PT INR Heparin Anti-Xa Level POC ABG pO2 ABG pH ABG Hemoglobin ABG Oxyhemoglobin ABG pO2 ABG HCO3 ABG O2 Saturation ABG Base Excess ABG Potassium ABG Chloride ABG Glucose Oxyhemoglobin Sodium Potassium Chloride Carbon Dioxide BUN Creatinine Glucose POC Glucose 347 H 132 H Lactic Acid Calcium AST Phosphorus Total Protein Albumin C-Reactive Protein Arterial Blood Glucose Arterial Blood Ionized Calcium Urine WBC (Auto) Crossmatch 02/06/20 02/07/20 02/07/20 18:26 00:08 05:41 WBC RBC Hgb Hct MCHC RDW Plt Count MCH Lymph % (Auto) Lymph # Lymph # (Auto) Seg Neutrophils % Seg Neuts % (Manual) Lymphocytes % (Manual) Seg Neutrophils # Seg Neutrophils # Man Basophils % (Manual) Nucleated RBC % Lymphocytes # (Manual) Monocytes # (Manual) Basophils # (Manual) PT INR Heparin Anti-Xa Level POC ABG pO2 ABG pH ABG Hemoglobin ABG Oxyhemoglobin ABG pO2 ABG HCO3 ABG O2 Saturation ABG Base Excess ABG Potassium ABG Chloride ABG Glucose Oxyhemoglobin Sodium Potassium Chloride Carbon Dioxide BUN Creatinine Glucose POC Glucose 114 H 111 H 164 H Lactic Acid Calcium AST Phosphorus Total Protein Albumin C-Reactive Protein Arterial Blood Glucose Arterial Blood Ionized Calcium Urine WBC (Auto) Crossmatch 02/07/20 02/07/20 02/07/20 11:49 17:56 23:27 WBC RBC Hgb Hct MCHC RDW Plt Count MCH Lymph % (Auto) Lymph # Lymph # (Auto) Seg Neutrophils % Seg Neuts % (Manual) Lymphocytes % (Manual) Seg Neutrophils # Seg Neutrophils # Man Basophils % (Manual) Nucleated RBC % Lymphocytes # (Manual) Monocytes # (Manual) Basophils # (Manual) PT INR Heparin Anti-Xa Level POC ABG pO2 ABG pH ABG Hemoglobin ABG Oxyhemoglobin ABG pO2 ABG HCO3 ABG O2 Saturation ABG Base Excess ABG Potassium ABG Chloride ABG Glucose Oxyhemoglobin Sodium Potassium Chloride Carbon Dioxide BUN Creatinine Glucose POC Glucose 146 H 140 H 164 H Lactic Acid Calcium AST Phosphorus Total Protein Albumin C-Reactive Protein Arterial Blood Glucose Arterial Blood Ionized Calcium Urine WBC (Auto) Crossmatch 02/08/20 02/08/20 02/08/20 03:55 04:46 04:46 WBC RBC 2.30 L Hgb 7.3 L Hct 22.0 L MCHC RDW 23.9 H Plt Count MCH Lymph % (Auto) 8.5 L Lymph # Lymph # (Auto) 0.8 L Seg Neutrophils % 87.6 H Seg Neuts % (Manual) Lymphocytes % (Manual) Seg Neutrophils # 8.7 H Seg Neutrophils # Man Basophils % (Manual) Nucleated RBC % Lymphocytes # (Manual) Monocytes # (Manual) Basophils # (Manual) PT INR Heparin Anti-Xa Level POC ABG pO2 112.8 H ABG pH 7.511 H ABG Hemoglobin 7.8 L ABG Oxyhemoglobin ABG pO2 ABG HCO3 ABG O2 Saturation ABG Base Excess ABG Potassium 2.9 L ABG Chloride ABG Glucose 112 H Oxyhemoglobin Sodium Potassium 3.1 L Chloride Carbon Dioxide 31 H BUN 29 H Creatinine 0.3 L Glucose 108 H POC Glucose Lactic Acid Calcium AST Phosphorus Total Protein Albumin C-Reactive Protein Arterial Blood Glucose 112 H Arterial Blood Ionized Calcium Urine WBC (Auto) Crossmatch 02/08/20 02/08/20 02/08/20 05:31 10:15 12:10 WBC RBC Hgb Hct MCHC RDW Plt Count MCH Lymph % (Auto) Lymph # Lymph # (Auto) Seg Neutrophils % Seg Neuts % (Manual) Lymphocytes % (Manual) Seg Neutrophils # Seg Neutrophils # Man Basophils % (Manual) Nucleated RBC % Lymphocytes # (Manual) Monocytes # (Manual) Basophils # (Manual) PT INR Heparin Anti-Xa Level POC ABG pO2 ABG pH ABG Hemoglobin ABG Oxyhemoglobin ABG pO2 ABG HCO3 ABG O2 Saturation ABG Base Excess ABG Potassium ABG Chloride ABG Glucose Oxyhemoglobin Sodium Potassium Chloride Carbon Dioxide BUN Creatinine Glucose POC Glucose 117 H 164 H 170 H Lactic Acid Calcium AST Phosphorus Total Protein Albumin C-Reactive Protein Arterial Blood Glucose Arterial Blood Ionized Calcium Urine WBC (Auto) Crossmatch 02/08/20 02/08/20 02/09/20 12:23 23:50 03:04 WBC RBC Hgb Hct MCHC RDW Plt Count MCH Lymph % (Auto) Lymph # Lymph # (Auto) Seg Neutrophils % Seg Neuts % (Manual) Lymphocytes % (Manual) Seg Neutrophils # Seg Neutrophils # Man Basophils % (Manual) Nucleated RBC % Lymphocytes # (Manual) Monocytes # (Manual) Basophils # (Manual) PT INR Heparin Anti-Xa Level POC ABG pO2 ABG pH 7.501 H ABG Hemoglobin 7.5 L ABG Oxyhemoglobin ABG pO2 ABG HCO3 ABG O2 Saturation ABG Base Excess ABG Potassium ABG Chloride ABG Glucose 143 H Oxyhemoglobin Sodium Potassium Chloride Carbon Dioxide BUN Creatinine Glucose POC Glucose 164 H 126 H Lactic Acid Calcium AST Phosphorus Total Protein Albumin C-Reactive Protein Arterial Blood Glucose 143 H Arterial Blood Ionized Calcium Urine WBC (Auto) Crossmatch 02/09/20 02/09/20 02/09/20 05:57 08:00 12:39 WBC RBC Hgb Hct MCHC RDW Plt Count MCH Lymph % (Auto) Lymph # Lymph # (Auto) Seg Neutrophils % Seg Neuts % (Manual) Lymphocytes % (Manual) Seg Neutrophils # Seg Neutrophils # Man Basophils % (Manual) Nucleated RBC % Lymphocytes # (Manual) Monocytes # (Manual) Basophils # (Manual) PT INR Heparin Anti-Xa Level POC ABG pO2 ABG pH ABG Hemoglobin ABG Oxyhemoglobin ABG pO2 ABG HCO3 ABG O2 Saturation ABG Base Excess ABG Potassium ABG Chloride ABG Glucose Oxyhemoglobin Sodium Potassium 3.3 L Chloride Carbon Dioxide 34 H BUN 27 H Creatinine 0.4 L Glucose 127 H POC Glucose 160 H 154 H Lactic Acid Calcium 8.2 L AST Phosphorus Total Protein Albumin C-Reactive Protein Arterial Blood Glucose Arterial Blood Ionized Calcium Urine WBC (Auto) Crossmatch 02/09/20 02/09/20 02/09/20 18:17 23:43 Unknown WBC RBC 2.15 L Hgb 7.0 L Hct 20.8 L MCHC RDW 23.3 H Plt Count MCH 33 H Lymph % (Auto) Lymph # Lymph # (Auto) Seg Neutrophils % Seg Neuts % (Manual) Lymphocytes % (Manual) Seg Neutrophils # Seg Neutrophils # Man Basophils % (Manual) Nucleated RBC % Lymphocytes # (Manual) Monocytes # (Manual) Basophils # (Manual) PT INR Heparin Anti-Xa Level POC ABG pO2 ABG pH ABG Hemoglobin ABG Oxyhemoglobin ABG pO2 ABG HCO3 ABG O2 Saturation ABG Base Excess ABG Potassium ABG Chloride ABG Glucose Oxyhemoglobin Sodium Potassium Chloride Carbon Dioxide BUN Creatinine Glucose POC Glucose 152 H 177 H Lactic Acid Calcium AST Phosphorus Total Protein Albumin C-Reactive Protein Arterial Blood Glucose Arterial Blood Ionized Calcium Urine WBC (Auto) Crossmatch 02/10/20 02/10/20 02/10/20 04:38 05:24 11:44 WBC RBC Hgb Hct MCHC RDW Plt Count MCH Lymph % (Auto) Lymph # Lymph # (Auto) Seg Neutrophils % Seg Neuts % (Manual) Lymphocytes % (Manual) Seg Neutrophils # Seg Neutrophils # Man Basophils % (Manual) Nucleated RBC % Lymphocytes # (Manual) Monocytes # (Manual) Basophils # (Manual) PT INR Heparin Anti-Xa Level POC ABG pO2 ABG pH 7.502 H ABG Hemoglobin 6.2 L ABG Oxyhemoglobin ABG pO2 136.0 H ABG HCO3 29.3 H ABG O2 Saturation ABG Base Excess 5.7 H ABG Potassium ABG Chloride ABG Glucose Oxyhemoglobin Sodium Potassium Chloride Carbon Dioxide BUN Creatinine Glucose POC Glucose 113 H 176 H Lactic Acid Calcium AST Phosphorus Total Protein Albumin C-Reactive Protein Arterial Blood Glucose Arterial Blood Ionized Calcium Urine WBC (Auto) Crossmatch 02/10/20 02/11/20 02/11/20 23:42 03:43 04:12 WBC RBC 2.12 L Hgb 6.9 L Hct 20.6 L MCHC RDW 23.4 H Plt Count MCH 33 H Lymph % (Auto) Lymph # Lymph # (Auto) Seg Neutrophils % 84.7 H Seg Neuts % (Manual) 83.0 H Lymphocytes % (Manual) 11.0 L Seg Neutrophils # Seg Neutrophils # Man Basophils % (Manual) Nucleated RBC % Lymphocytes # (Manual) 1.0 L Monocytes # (Manual) Basophils # (Manual) PT INR Heparin Anti-Xa Level POC ABG pO2 112.6 H ABG pH 7.480 H ABG Hemoglobin 7.2 L ABG Oxyhemoglobin ABG pO2 ABG HCO3 ABG O2 Saturation ABG Base Excess ABG Potassium ABG Chloride ABG Glucose 154 H Oxyhemoglobin Sodium Potassium Chloride Carbon Dioxide BUN Creatinine Glucose POC Glucose 149 H Lactic Acid Calcium AST Phosphorus Total Protein Albumin C-Reactive Protein Arterial Blood Glucose 154 H Arterial Blood Ionized Calcium Urine WBC (Auto) Crossmatch 02/11/20 02/11/20 02/11/20 04:12 05:50 08:22 WBC RBC Hgb Hct MCHC RDW Plt Count MCH Lymph % (Auto) Lymph # Lymph # (Auto) Seg Neutrophils % Seg Neuts % (Manual) Lymphocytes % (Manual) Seg Neutrophils # Seg Neutrophils # Man Basophils % (Manual) Nucleated RBC % Lymphocytes # (Manual) Monocytes # (Manual) Basophils # (Manual) PT INR Heparin Anti-Xa Level POC ABG pO2 ABG pH ABG Hemoglobin ABG Oxyhemoglobin ABG pO2 ABG HCO3 ABG O2 Saturation ABG Base Excess ABG Potassium ABG Chloride ABG Glucose Oxyhemoglobin Sodium 146 H Potassium Chloride Carbon Dioxide BUN 24 H Creatinine 0.4 L Glucose 168 H POC Glucose 190 H Lactic Acid Calcium 8.0 L AST Phosphorus Total Protein Albumin C-Reactive Protein Arterial Blood Glucose Arterial Blood Ionized Calcium Urine WBC (Auto) Crossmatch See Detail 02/11/20 02/11/20 02/11/20 11:41 17:33 23:40 WBC RBC Hgb Hct MCHC RDW Plt Count MCH Lymph % (Auto) Lymph # Lymph # (Auto) Seg Neutrophils % Seg Neuts % (Manual) Lymphocytes % (Manual) Seg Neutrophils # Seg Neutrophils # Man Basophils % (Manual) Nucleated RBC % Lymphocytes # (Manual) Monocytes # (Manual) Basophils # (Manual) PT INR Heparin Anti-Xa Level POC ABG pO2 ABG pH ABG Hemoglobin ABG Oxyhemoglobin ABG pO2 ABG HCO3 ABG O2 Saturation ABG Base Excess ABG Potassium ABG Chloride ABG Glucose Oxyhemoglobin Sodium Potassium Chloride Carbon Dioxide BUN Creatinine Glucose POC Glucose 260 H 132 H 54 L Lactic Acid Calcium AST Phosphorus Total Protein Albumin C-Reactive Protein Arterial Blood Glucose Arterial Blood Ionized Calcium Urine WBC (Auto) Crossmatch 02/12/20 02/12/20 02/12/20 05:16 06:45 11:48 WBC RBC Hgb 8.6 L Hct 25.2 L MCHC RDW Plt Count MCH Lymph % (Auto) Lymph # Lymph # (Auto) Seg Neutrophils % Seg Neuts % (Manual) Lymphocytes % (Manual) Seg Neutrophils # Seg Neutrophils # Man Basophils % (Manual) Nucleated RBC % Lymphocytes # (Manual) Monocytes # (Manual) Basophils # (Manual) PT INR Heparin Anti-Xa Level POC ABG pO2 ABG pH ABG Hemoglobin ABG Oxyhemoglobin ABG pO2 ABG HCO3 ABG O2 Saturation ABG Base Excess ABG Potassium ABG Chloride ABG Glucose Oxyhemoglobin Sodium Potassium Chloride Carbon Dioxide BUN Creatinine Glucose POC Glucose 127 H 163 H Lactic Acid Calcium AST Phosphorus Total Protein Albumin C-Reactive Protein Arterial Blood Glucose Arterial Blood Ionized Calcium Urine WBC (Auto) Crossmatch 02/12/20 02/12/20 02/13/20 17:25 23:53 04:30 WBC RBC Hgb Hct MCHC RDW Plt Count MCH Lymph % (Auto) Lymph # Lymph # (Auto) Seg Neutrophils % Seg Neuts % (Manual) Lymphocytes % (Manual) Seg Neutrophils # Seg Neutrophils # Man Basophils % (Manual) Nucleated RBC % Lymphocytes # (Manual) Monocytes # (Manual) Basophils # (Manual) PT INR Heparin Anti-Xa Level POC ABG pO2 ABG pH 7.463 H ABG Hemoglobin ABG Oxyhemoglobin ABG pO2 98.4 H ABG HCO3 27.7 H ABG O2 Saturation ABG Base Excess 3.7 H ABG Potassium ABG Chloride ABG Glucose Oxyhemoglobin Sodium Potassium Chloride Carbon Dioxide BUN Creatinine Glucose POC Glucose 152 H 140 H Lactic Acid Calcium AST Phosphorus Total Protein Albumin C-Reactive Protein Arterial Blood Glucose Arterial Blood Ionized Calcium Urine WBC (Auto) Crossmatch 02/13/20 02/13/20 02/13/20 04:45 04:45 05:19 WBC RBC 2.73 L Hgb 8.7 L Hct 25.6 L MCHC RDW 21.3 H Plt Count MCH Lymph % (Auto) 12.0 L Lymph # Lymph # (Auto) 1.0 L Seg Neutrophils % 82.5 H Seg Neuts % (Manual) Lymphocytes % (Manual) Seg Neutrophils # Seg Neutrophils # Man Basophils % (Manual) Nucleated RBC % Lymphocytes # (Manual) Monocytes # (Manual) Basophils # (Manual) PT INR Heparin Anti-Xa Level POC ABG pO2 ABG pH ABG Hemoglobin ABG Oxyhemoglobin ABG pO2 ABG HCO3 ABG O2 Saturation ABG Base Excess ABG Potassium ABG Chloride ABG Glucose Oxyhemoglobin Sodium Potassium 3.4 L Chloride Carbon Dioxide 31 H BUN 24 H Creatinine 0.3 L Glucose 122 H POC Glucose 127 H Lactic Acid Calcium 8.0 L AST Phosphorus Total Protein 4.2 L Albumin 2.0 L C-Reactive Protein Arterial Blood Glucose Arterial Blood Ionized Calcium Urine WBC (Auto) Crossmatch 02/13/20 02/14/20 02/14/20 23:08 04:26 04:26 WBC RBC 2.74 L Hgb 8.7 L Hct 25.8 L MCHC RDW 21.3 H Plt Count MCH Lymph % (Auto) 13.2 L Lymph # Lymph # (Auto) Seg Neutrophils % 81.4 H Seg Neuts % (Manual) Lymphocytes % (Manual) Seg Neutrophils # 8.4 H Seg Neutrophils # Man Basophils % (Manual) Nucleated RBC % Lymphocytes # (Manual) Monocytes # (Manual) Basophils # (Manual) PT INR Heparin Anti-Xa Level POC ABG pO2 ABG pH ABG Hemoglobin ABG Oxyhemoglobin ABG pO2 ABG HCO3 ABG O2 Saturation ABG Base Excess ABG Potassium ABG Chloride ABG Glucose Oxyhemoglobin Sodium Potassium 3.4 L Chloride 107.6 H Carbon Dioxide BUN 20 H Creatinine 0.3 L Glucose 170 H POC Glucose 148 H Lactic Acid Calcium 8.2 L AST Phosphorus Total Protein Albumin C-Reactive Protein Arterial Blood Glucose Arterial Blood Ionized Calcium Urine WBC (Auto) Crossmatch 02/14/20 02/14/20 02/14/20 05:05 12:08 17:37 WBC RBC Hgb Hct MCHC RDW Plt Count MCH Lymph % (Auto) Lymph # Lymph # (Auto) Seg Neutrophils % Seg Neuts % (Manual) Lymphocytes % (Manual) Seg Neutrophils # Seg Neutrophils # Man Basophils % (Manual) Nucleated RBC % Lymphocytes # (Manual) Monocytes # (Manual) Basophils # (Manual) PT INR Heparin Anti-Xa Level POC ABG pO2 ABG pH ABG Hemoglobin ABG Oxyhemoglobin ABG pO2 ABG HCO3 ABG O2 Saturation ABG Base Excess ABG Potassium ABG Chloride ABG Glucose Oxyhemoglobin Sodium Potassium Chloride Carbon Dioxide BUN Creatinine Glucose POC Glucose 182 H 156 H 144 H Lactic Acid Calcium AST Phosphorus Total Protein Albumin C-Reactive Protein Arterial Blood Glucose Arterial Blood Ionized Calcium Urine WBC (Auto) Crossmatch 02/14/20 02/15/20 02/15/20 23:36 05:44 12:11 WBC RBC Hgb Hct MCHC RDW Plt Count MCH Lymph % (Auto) Lymph # Lymph # (Auto) Seg Neutrophils % Seg Neuts % (Manual) Lymphocytes % (Manual) Seg Neutrophils # Seg Neutrophils # Man Basophils % (Manual) Nucleated RBC % Lymphocytes # (Manual) Monocytes # (Manual) Basophils # (Manual) PT INR Heparin Anti-Xa Level POC ABG pO2 ABG pH ABG Hemoglobin ABG Oxyhemoglobin ABG pO2 ABG HCO3 ABG O2 Saturation ABG Base Excess ABG Potassium ABG Chloride ABG Glucose Oxyhemoglobin Sodium Potassium Chloride Carbon Dioxide BUN Creatinine Glucose POC Glucose 183 H 203 H 140 H Lactic Acid Calcium AST Phosphorus Total Protein Albumin C-Reactive Protein Arterial Blood Glucose Arterial Blood Ionized Calcium Urine WBC (Auto) Crossmatch 02/15/20 02/16/20 02/16/20 17:23 00:12 05:09 WBC RBC Hgb 8.8 L Hct 26.0 L MCHC RDW Plt Count MCH Lymph % (Auto) Lymph # Lymph # (Auto) Seg Neutrophils % Seg Neuts % (Manual) Lymphocytes % (Manual) Seg Neutrophils # Seg Neutrophils # Man Basophils % (Manual) Nucleated RBC % Lymphocytes # (Manual) Monocytes # (Manual) Basophils # (Manual) PT INR Heparin Anti-Xa Level POC ABG pO2 ABG pH ABG Hemoglobin ABG Oxyhemoglobin ABG pO2 ABG HCO3 ABG O2 Saturation ABG Base Excess ABG Potassium ABG Chloride ABG Glucose Oxyhemoglobin Sodium Potassium Chloride Carbon Dioxide BUN Creatinine Glucose POC Glucose 170 H 133 H Lactic Acid Calcium AST Phosphorus Total Protein Albumin C-Reactive Protein Arterial Blood Glucose Arterial Blood Ionized Calcium Urine WBC (Auto) Crossmatch 02/16/20 02/16/20 02/16/20 05:09 05:21 12:22 WBC RBC Hgb Hct MCHC RDW Plt Count MCH Lymph % (Auto) Lymph # Lymph # (Auto) Seg Neutrophils % Seg Neuts % (Manual) Lymphocytes % (Manual) Seg Neutrophils # Seg Neutrophils # Man Basophils % (Manual) Nucleated RBC % Lymphocytes # (Manual) Monocytes # (Manual) Basophils # (Manual) PT INR Heparin Anti-Xa Level POC ABG pO2 ABG pH ABG Hemoglobin ABG Oxyhemoglobin ABG pO2 ABG HCO3 ABG O2 Saturation ABG Base Excess ABG Potassium ABG Chloride ABG Glucose Oxyhemoglobin Sodium Potassium Chloride Carbon Dioxide 31 H BUN 18 H Creatinine 0.3 L Glucose 152 H POC Glucose 160 H 138 H Lactic Acid Calcium 7.9 L AST Phosphorus Total Protein Albumin C-Reactive Protein Arterial Blood Glucose Arterial Blood Ionized Calcium Urine WBC (Auto) Crossmatch 02/16/20 02/17/20 02/17/20 16:35 00:01 05:22 WBC RBC Hgb Hct MCHC RDW Plt Count MCH Lymph % (Auto) Lymph # Lymph # (Auto) Seg Neutrophils % Seg Neuts % (Manual) Lymphocytes % (Manual) Seg Neutrophils # Seg Neutrophils # Man Basophils % (Manual) Nucleated RBC % Lymphocytes # (Manual) Monocytes # (Manual) Basophils # (Manual) PT INR Heparin Anti-Xa Level POC ABG pO2 ABG pH ABG Hemoglobin ABG Oxyhemoglobin ABG pO2 ABG HCO3 ABG O2 Saturation ABG Base Excess ABG Potassium ABG Chloride ABG Glucose Oxyhemoglobin Sodium Potassium Chloride Carbon Dioxide BUN Creatinine Glucose POC Glucose 142 H 173 H 126 H Lactic Acid Calcium AST Phosphorus Total Protein Albumin C-Reactive Protein Arterial Blood Glucose Arterial Blood Ionized Calcium Urine WBC (Auto) Crossmatch 02/17/20 02/17/20 02/18/20 11:35 18:08 00:15 WBC RBC Hgb Hct MCHC RDW Plt Count MCH Lymph % (Auto) Lymph # Lymph # (Auto) Seg Neutrophils % Seg Neuts % (Manual) Lymphocytes % (Manual) Seg Neutrophils # Seg Neutrophils # Man Basophils % (Manual) Nucleated RBC % Lymphocytes # (Manual) Monocytes # (Manual) Basophils # (Manual) PT INR Heparin Anti-Xa Level POC ABG pO2 ABG pH ABG Hemoglobin ABG Oxyhemoglobin ABG pO2 ABG HCO3 ABG O2 Saturation ABG Base Excess ABG Potassium ABG Chloride ABG Glucose Oxyhemoglobin Sodium Potassium Chloride Carbon Dioxide BUN Creatinine Glucose POC Glucose 113 H 136 H 160 H Lactic Acid Calcium AST Phosphorus Total Protein Albumin C-Reactive Protein Arterial Blood Glucose Arterial Blood Ionized Calcium Urine WBC (Auto) Crossmatch 02/18/20 02/18/20 02/18/20 04:43 04:43 05:30 WBC RBC 3.24 L Hgb Hct MCHC RDW 20.1 H Plt Count 455 H MCH Lymph % (Auto) Lymph # Lymph # (Auto) Seg Neutrophils % Seg Neuts % (Manual) Lymphocytes % (Manual) Seg Neutrophils # Seg Neutrophils # Man Basophils % (Manual) Nucleated RBC % Lymphocytes # (Manual) Monocytes # (Manual) Basophils # (Manual) PT INR Heparin Anti-Xa Level POC ABG pO2 ABG pH ABG Hemoglobin ABG Oxyhemoglobin ABG pO2 ABG HCO3 ABG O2 Saturation ABG Base Excess ABG Potassium ABG Chloride ABG Glucose Oxyhemoglobin Sodium Potassium Chloride Carbon Dioxide BUN Creatinine 0.3 L Glucose 118 H POC Glucose 139 H Lactic Acid Calcium AST Phosphorus Total Protein Albumin C-Reactive Protein Arterial Blood Glucose Arterial Blood Ionized Calcium Urine WBC (Auto) Crossmatch 02/18/20 02/18/20 02/19/20 11:55 17:51 00:00 WBC RBC Hgb Hct MCHC RDW Plt Count MCH Lymph % (Auto) Lymph # Lymph # (Auto) Seg Neutrophils % Seg Neuts % (Manual) Lymphocytes % (Manual) Seg Neutrophils # Seg Neutrophils # Man Basophils % (Manual) Nucleated RBC % Lymphocytes # (Manual) Monocytes # (Manual) Basophils # (Manual) PT INR Heparin Anti-Xa Level POC ABG pO2 ABG pH ABG Hemoglobin ABG Oxyhemoglobin ABG pO2 ABG HCO3 ABG O2 Saturation ABG Base Excess ABG Potassium ABG Chloride ABG Glucose Oxyhemoglobin Sodium Potassium Chloride Carbon Dioxide BUN Creatinine Glucose POC Glucose 165 H 139 H 141 H Lactic Acid Calcium AST Phosphorus Total Protein Albumin C-Reactive Protein Arterial Blood Glucose Arterial Blood Ionized Calcium Urine WBC (Auto) Crossmatch 02/19/20 02/19/20 02/20/20 05:45 12:20 05:36 WBC RBC Hgb Hct MCHC RDW Plt Count MCH Lymph % (Auto) Lymph # Lymph # (Auto) Seg Neutrophils % Seg Neuts % (Manual) Lymphocytes % (Manual) Seg Neutrophils # Seg Neutrophils # Man Basophils % (Manual) Nucleated RBC % Lymphocytes # (Manual) Monocytes # (Manual) Basophils # (Manual) PT INR Heparin Anti-Xa Level POC ABG pO2 ABG pH ABG Hemoglobin ABG Oxyhemoglobin ABG pO2 ABG HCO3 ABG O2 Saturation ABG Base Excess ABG Potassium ABG Chloride ABG Glucose Oxyhemoglobin Sodium Potassium Chloride Carbon Dioxide BUN Creatinine Glucose POC Glucose 169 H 161 H 159 H Lactic Acid Calcium AST Phosphorus Total Protein Albumin C-Reactive Protein Arterial Blood Glucose Arterial Blood Ionized Calcium Urine WBC (Auto) Crossmatch 02/20/20 02/20/20 02/20/20 08:24 08:24 11:54 WBC RBC 2.74 L Hgb 8.7 L Hct 26.4 L MCHC RDW 19.4 H Plt Count MCH Lymph % (Auto) Lymph # Lymph # (Auto) Seg Neutrophils % Seg Neuts % (Manual) 79.0 H Lymphocytes % (Manual) 12.0 L Seg Neutrophils # Seg Neutrophils # Man Basophils % (Manual) 2.0 H Nucleated RBC % Lymphocytes # (Manual) 1.0 L Monocytes # (Manual) Basophils # (Manual) 0.2 H PT INR Heparin Anti-Xa Level POC ABG pO2 ABG pH ABG Hemoglobin ABG Oxyhemoglobin ABG pO2 ABG HCO3 ABG O2 Saturation ABG Base Excess ABG Potassium ABG Chloride ABG Glucose Oxyhemoglobin Sodium 134 L Potassium Chloride Carbon Dioxide BUN Creatinine 0.3 L Glucose 136 H POC Glucose 172 H Lactic Acid Calcium 8.0 L AST Phosphorus Total Protein Albumin C-Reactive Protein Arterial Blood Glucose Arterial Blood Ionized Calcium Urine WBC (Auto) Crossmatch 02/20/20 02/21/20 02/21/20 23:59 05:34 12:39 WBC RBC Hgb Hct MCHC RDW Plt Count MCH Lymph % (Auto) Lymph # Lymph # (Auto) Seg Neutrophils % Seg Neuts % (Manual) Lymphocytes % (Manual) Seg Neutrophils # Seg Neutrophils # Man Basophils % (Manual) Nucleated RBC % Lymphocytes # (Manual) Monocytes # (Manual) Basophils # (Manual) PT INR Heparin Anti-Xa Level POC ABG pO2 ABG pH ABG Hemoglobin ABG Oxyhemoglobin ABG pO2 ABG HCO3 ABG O2 Saturation ABG Base Excess ABG Potassium ABG Chloride ABG Glucose Oxyhemoglobin Sodium Potassium Chloride Carbon Dioxide BUN Creatinine Glucose POC Glucose 117 H 159 H 133 H Lactic Acid Calcium AST Phosphorus Total Protein Albumin C-Reactive Protein Arterial Blood Glucose Arterial Blood Ionized Calcium Urine WBC (Auto) Crossmatch 02/22/20 02/22/20 06:14 11:40 WBC RBC Hgb Hct MCHC RDW Plt Count MCH Lymph % (Auto) Lymph # Lymph # (Auto) Seg Neutrophils % Seg Neuts % (Manual) Lymphocytes % (Manual) Seg Neutrophils # Seg Neutrophils # Man Basophils % (Manual) Nucleated RBC % Lymphocytes # (Manual) Monocytes # (Manual) Basophils # (Manual) PT INR Heparin Anti-Xa Level POC ABG pO2 ABG pH ABG Hemoglobin ABG Oxyhemoglobin ABG pO2 ABG HCO3 ABG O2 Saturation ABG Base Excess ABG Potassium ABG Chloride ABG Glucose Oxyhemoglobin Sodium Potassium Chloride Carbon Dioxide BUN Creatinine Glucose POC Glucose 139 H 147 H Lactic Acid Calcium AST Phosphorus Total Protein Albumin C-Reactive Protein Arterial Blood Glucose Arterial Blood Ionized Calcium Urine WBC (Auto) Crossmatch Chest x-ray: other (none today) Allied health notes reviewed: nursing
[2020-02-22] MEDS ORDERED: SODIUM CHLORIDE 0.9% 500 ML 500 ML IV ONE (13:59)
[2020-02-22] MEDS ORDERED: SODIUM CHLORIDE 0.9% 1000 ML 1,000 ML IV SCH (14:15)
[2020-02-22] MEDS: DONEPEZIL 10 MG TAB PO SCH (21:38)
[2020-02-22] MEDS: MIRTAZAPINE 15 MG TAB PO SCH (21:38)
[2020-02-22] MEDS: traZODone 50 MG TAB PO SCH (21:39)
[2020-02-23] MEDS: INSULIN REGULAR, HUMAN 100 UNIT/ML 3ML VIAL SUB-Q SCH ×4 (05:20→23:40)
[2020-02-23] MEDS: PIPERACIL/TAZOBACTA 4.5/NS 100 4.5 GM/100 ML VIAL IV SCH ×3 (05:20→21:19)
--- NOTE | 2020-02-23 08:48 | Progress Note ---
Assessment and Plan Severe sepsis with shock. Left lung atelectasis. Left pleural effusion. Acute hypoxemic respiratory failure on MVS s/p Tracheostomy s/p Cardiopulamanry arrest with ROSC x2 Severe sepsis with shock Acute possibly on chronic encephalopathy. History of diabetes. Urinary tract infection. History of pulmonary embolism, diagnosed several months ago. Sacral decubitus ulcer. Dementia. Anemia Right cephalic vein superficial venous thrombosis Discussed with RT to trial her again later this afternoon on ATP CBC, BMP in am -Trach care, airway clearance , secretion management -Analgesia per CPOT score -Continue with VTE prophylaxis -Keep potassium at 4, Mag at 2 and Phos at 2.5 to optimize respiratory muscle function -Supportive transfusions as indicated to keep HgB >7g/dL to help with wound healing -Optimize nutritional support -CXR, ABG as clinically indicated -Discharge planning- discharge location will be determined by how well she tolerates weaning trials -VAP bundle addressed -Wean FIO2 for O2 sats >92% -Aspiration precautions, HOB >40 -Enteric nutritional support- has a PEG - continue bronchodilators with pulmonary hygiene per RT - continue accuchecks with glycemic control per SSI (While critically ill target blood glucose of 140-180 mg/dL; avoid hypoglycemia) - avoid nephrotoxins, renally dose all medications - continue to avoid benzodiazepines, reduce the possibility of delirium - complete antibiotics -on Zosyn for sacral osteomyelitis - prn analgesia per CPOT score - Maintenance of sleep-wake cycle, avoid delirium -VTE prophylaxis with Heparin - Stress ulcer prophylaxis with Famotidine - PT/OT/ROM exercises - continue mobility protocol, frequent turning and off loading to prevent further pressure ulcers -Wound care with wound vac - Monitor hemodynamics closely - continue other care per attending / other consultants Discussed with RT, RN, Clinical pharmacist and case management during ICU-IDT rounds CONDITION: CRITICAL PROGNOSIS: GUARDED CODE STATUS: FULL CODE The high probability of a clinically significant, sudden or life-threatening deterioration of the [respiratory, cardiovascular & neurologic] system(s) required my full and direct attention, intervention and personal management. The aggregate critical care time was [32] minutes without overlap. Time includes spent on; [x] Data Review and interpretation [x] Patient assessment and monitoring of vital signs [x] Documentation [x] Medication orders and management Subjective Date of service: 02/23/20 Principal diagnosis: Septic Shock; S/P Cardiac Arrest; Ac. hypoxemic resp failure; UTI Interval history: Patient is seen today for: PEA arrest with ROSC, trach to MVS; Severe sepsis with shock ; Acute hypoxemic respiratory failure; Acute possibly on chronic enc ephalopathy; DM II ; UTI ; VTE Seen and examined at bedside; 24hour events reviewed; nursing and respiratory care staff consulted; no adverse overnight events reported to me; resting peacefully in bed; No fevers, no vomiting, 2 loose BMs s/p trach , awake and alert but not obeying commands. On PSV trial this morning, failed T-piece yesterday Objective Vital Signs - 12hr 02/22/20 02/22/20 02/22/20 21:00 21:04 21:31 Temperature Pulse Rate 114 H 116 H 114 H Pulse Rate [ From Monitor] Respiratory 26 H 18 Rate Respiratory Rate [Bilateral Lower Leg] Blood Pressure 141/69 141/69 141/69 O2 Sat by Pulse 100 100 100 Oximetry O2 Sat by Pulse Oximetry [ Assessment] 02/22/20 02/22/20 02/22/20 21:38 22:00 22:01 Temperature Pulse Rate 117 H 106 H Pulse Rate [ From Monitor] Respiratory 19 Rate Respiratory 15 Rate [Bilateral Lower Leg] Blood Pressure 141/69 135/68 O2 Sat by Pulse 100 Oximetry O2 Sat by Pulse Oximetry [ Assessment] 02/22/20 02/22/20 02/22/20 22:31 23:00 23:08 Temperature Pulse Rate 93 H 95 H 95 H Pulse Rate [ From Monitor] Respiratory 17 20 21 Rate Respiratory Rate [Bilateral Lower Leg] Blood Pressure 141/69 150/72 141/69 O2 Sat by Pulse 100 100 100 Oximetry O2 Sat by Pulse Oximetry [ Assessment] 02/22/20 02/23/20 02/23/20 23:30 00:00 00:01 Temperature 97.5 F L Pulse Rate 102 H 94 H 105 H Pulse Rate [ 105 H From Monitor] Respiratory 27 H 18 26 H Rate Respiratory Rate [Bilateral Lower Leg] Blood Pressure 150/72 154/74 O2 Sat by Pulse 100 100 100 Oximetry O2 Sat by Pulse Oximetry [ Assessment] 02/23/20 02/23/20 02/23/20 00:14 00:31 01:00 Temperature Pulse Rate 106 H 102 H 99 H Pulse Rate [ From Monitor] Respiratory 21 17 Rate Respiratory Rate [Bilateral Lower Leg] Blood Pressure 154/74 154/74 143/68 O2 Sat by Pulse 100 100 100 Oximetry O2 Sat by Pulse Oximetry [ Assessment] 02/23/20 02/23/20 02/23/20 01:31 02:00 02:31 Temperature Pulse Rate 89 99 H 74 Pulse Rate [ From Monitor] Respiratory 20 25 H 22 Rate Respiratory Rate [Bilateral Lower Leg] Blood Pressure 143/68 151/68 151/68 O2 Sat by Pulse 100 100 100 Oximetry O2 Sat by Pulse Oximetry [ Assessment] 02/23/20 02/23/20 02/23/20 03:00 03:31 04:00 Temperature 98.3 F Pulse Rate 108 H 103 H 101 H Pulse Rate [ 103 H From Monitor] Respiratory 26 H 23 26 H Rate Respiratory Rate [Bilateral Lower Leg] Blood Pressure 160/80 160/80 131/68 O2 Sat by Pulse 100 100 100 Oximetry O2 Sat by Pulse Oximetry [ Assessment] 02/23/20 02/23/20 02/23/20 04:31 05:01 05:05 Temperature Pulse Rate 108 H 118 H 119 H Pulse Rate [ From Monitor] Respiratory 25 H 16 Rate Respiratory Rate [Bilateral Lower Leg] Blood Pressure 131/68 90/62 90/62 O2 Sat by Pulse 100 100 100 Oximetry O2 Sat by Pulse Oximetry [ Assessment] 02/23/20 02/23/20 02/23/20 05:06 05:31 06:00 Temperature Pulse Rate 115 H Pulse Rate [ From Monitor] Respiratory 26 H Rate Respiratory Rate [Bilateral Lower Leg] Blood Pressure 90/62 143/69 O2 Sat by Pulse 100 100 Oximetry O2 Sat by Pulse 100 Oximetry [ Assessment] 02/23/20 02/23/20 08:01 08:06 Temperature Pulse Rate 111 H 110 H Pulse Rate [ From Monitor] Respiratory 28 H Rate Respiratory Rate [Bilateral Lower Leg] Blood Pressure 129/90 129/90 O2 Sat by Pulse 100 100 Oximetry O2 Sat by Pulse Oximetry [ Assessment] Constitutional: no acute distress, alert, other (elderly chronically ill looking female trach to [facility]) Eyes: non-icteric ENT: oropharynx moist, other (trach) Neck: supple, no lymphadenopathy Effort: normal Ascultation: Bilateral: clear, diminished breath sounds, rales (bases predominant), rhonchi Percussion: Bilateral: not dull Cardiovascular: regular rate and rhythm, other (S1,S2) Gastrointestinal: normoactive bowel sounds, soft, non-tender, other (PEG in place) Integumentary: decubitus ulcer Extremities: no cyanosis, pulses normal, no ischemia or petechiae, edema, other (bilateral upper extremity edema) Neurologic: pupils equal and round, other (awake and alert, not obeying commands) Psychiatric: other (Unable to assess secondary to mental status) CBC and BMP: 02/20/20 08:24 02/20/20 08:24 ABG, PT/INR, D-dimer: ABG ABG pH 7.463 pH Units (7.350-7.450) H 02/13/20 04:30 POC ABG pCO2 38.5 mmHg (32.0-48.0) 02/11/20 03:43 ABG pCO2 39.6 mm Hg 02/13/20 04:30 POC ABG pO2 112.6 mmHg (83-108) H 02/11/20 03:43 ABG pO2 98.4 mm Hg (80.0-90.0) H 02/13/20 04:30 POC ABG HCO3 28 02/11/20 03:43 ABG O2 Saturation 97.7 % (95.0-99.0) 02/13/20 04:30 PT/INR, D-dimer PT 14.4 Sec. (12.2-14.9) 02/02/20 05:25 INR 1.11 (0.87-1.13) 02/02/20 05:25 Abnormal lab findings: Abnormal Labs 01/08/20 01/08/20 01/08/20 16:29 16:29 16:29 WBC 13.5 H RBC Hgb Hct MCHC RDW 15.5 H Plt Count MCH Lymph % (Auto) Lymph # Lymph # (Auto) Seg Neutrophils % Seg Neuts % (Manual) 85.0 H Lymphocytes % (Manual) 11.0 L Seg Neutrophils # Seg Neutrophils # Man 11.5 H Basophils % (Manual) Nucleated RBC % Lymphocytes # (Manual) Monocytes # (Manual) Basophils # (Manual) PT INR Heparin Anti-Xa Level POC ABG pO2 ABG pH ABG Hemoglobin ABG Oxyhemoglobin ABG pO2 ABG HCO3 ABG O2 Saturation ABG Base Excess ABG Potassium ABG Chloride ABG Glucose Oxyhemoglobin Sodium 161 H* Potassium Chloride 125.5 H Carbon Dioxide 20 L BUN 30 H Creatinine Glucose 115 H POC Glucose Lactic Acid 2.20 H* Calcium 7.9 L AST 48 H Phosphorus Total Protein Albumin 2.5 L C-Reactive Protein Arterial Blood Glucose Arterial Blood Ionized Calcium Urine WBC (Auto) Crossmatch 01/08/20 01/08/20 01/08/20 19:02 23:30 Unknown WBC RBC Hgb Hct MCHC RDW Plt Count MCH Lymph % (Auto) Lymph # Lymph # (Auto) Seg Neutrophils % Seg Neuts % (Manual) Lymphocytes % (Manual) Seg Neutrophils # Seg Neutrophils # Man Basophils % (Manual) Nucleated RBC % Lymphocytes # (Manual) Monocytes # (Manual) Basophils # (Manual) PT INR Heparin Anti-Xa Level POC ABG pO2 ABG pH ABG Hemoglobin ABG Oxyhemoglobin ABG pO2 ABG HCO3 ABG O2 Saturation ABG Base Excess ABG Potassium ABG Chloride ABG Glucose Oxyhemoglobin Sodium Potassium Chloride Carbon Dioxide BUN Creatinine Glucose POC Glucose Lactic Acid 2.10 H* 2.50 H* Calcium AST Phosphorus Total Protein Albumin C-Reactive Protein Arterial Blood Glucose Arterial Blood Ionized Calcium Urine WBC (Auto) 11.0 H Crossmatch 01/09/20 01/09/20 01/09/20 00:19 00:54 05:52 WBC 13.5 H RBC 3.02 L Hgb 9.0 L D Hct 27.4 L D MCHC RDW Plt Count MCH Lymph % (Auto) 9.1 L Lymph # Lymph # (Auto) Seg Neutrophils % 87.6 H Seg Neuts % (Manual) Lymphocytes % (Manual) Seg Neutrophils # 11.8 H Seg Neutrophils # Man Basophils % (Manual) Nucleated RBC % Lymphocytes # (Manual) Monocytes # (Manual) Basophils # (Manual) PT INR Heparin Anti-Xa Level POC ABG pO2 ABG pH ABG Hemoglobin ABG Oxyhemoglobin ABG pO2 ABG HCO3 ABG O2 Saturation ABG Base Excess ABG Potassium ABG Chloride ABG Glucose Oxyhemoglobin Sodium Potassium Chloride Carbon Dioxide BUN Creatinine Glucose POC Glucose 118 H 116 H Lactic Acid Calcium AST Phosphorus Total Protein Albumin C-Reactive Protein Arterial Blood Glucose Arterial Blood Ionized Calcium Urine WBC (Auto) Crossmatch 01/09/20 01/09/20 01/09/20 05:52 05:52 13:03 WBC RBC Hgb Hct MCHC RDW Plt Count MCH Lymph % (Auto) Lymph # Lymph # (Auto) Seg Neutrophils % Seg Neuts % (Manual) Lymphocytes % (Manual) Seg Neutrophils # Seg Neutrophils # Man Basophils % (Manual) Nucleated RBC % Lymphocytes # (Manual) Monocytes # (Manual) Basophils # (Manual) PT 17.1 H INR 1.36 H Heparin Anti-Xa Level POC ABG pO2 ABG pH ABG Hemoglobin ABG Oxyhemoglobin ABG pO2 ABG HCO3 ABG O2 Saturation ABG Base Excess ABG Potassium ABG Chloride ABG Glucose Oxyhemoglobin Sodium 162 H* Potassium 3.0 L D Chloride 128.3 H Carbon Dioxide BUN 23 H Creatinine Glucose POC Glucose 55 L Lactic Acid Calcium 7.6 L AST Phosphorus Total Protein Albumin C-Reactive Protein Arterial Blood Glucose Arterial Blood Ionized Calcium Urine WBC (Auto) Crossmatch 01/09/20 01/09/20 01/09/20 21:22 21:50 22:28 WBC RBC Hgb Hct MCHC RDW Plt Count MCH Lymph % (Auto) Lymph # Lymph # (Auto) Seg Neutrophils % Seg Neuts % (Manual) Lymphocytes % (Manual) Seg Neutrophils # Seg Neutrophils # Man Basophils % (Manual) Nucleated RBC % Lymphocytes # (Manual) Monocytes # (Manual) Basophils # (Manual) PT INR Heparin Anti-Xa Level POC ABG pO2 ABG pH ABG Hemoglobin ABG Oxyhemoglobin ABG pO2 ABG HCO3 ABG O2 Saturation ABG Base Excess ABG Potassium ABG Chloride ABG Glucose Oxyhemoglobin Sodium 159 H Potassium 5.1 H D Chloride 128.5 H Carbon Dioxide 16 L BUN 23 H Creatinine Glucose 51 L POC Glucose 52 L 106 H Lactic Acid Calcium 8.2 L AST Phosphorus Total Protein Albumin C-Reactive Protein Arterial Blood Glucose Arterial Blood Ionized Calcium Urine WBC (Auto) Crossmatch 01/10/20 01/10/20 01/10/20 05:23 09:11 10:10 WBC 13.4 H RBC Hgb Hct MCHC RDW Plt Count MCH Lymph % (Auto) 7.2 L Lymph # 1.0 L Lymph # (Auto) Seg Neutrophils % 90.0 H Seg Neuts % (Manual) Lymphocytes % (Manual) Seg Neutrophils # 12.0 H Seg Neutrophils # Man Basophils % (Manual) Nucleated RBC % Lymphocytes # (Manual) Monocytes # (Manual) Basophils # (Manual) PT INR Heparin Anti-Xa Level POC ABG pO2 ABG pH ABG Hemoglobin ABG Oxyhemoglobin ABG pO2 ABG HCO3 ABG O2 Saturation ABG Base Excess ABG Potassium ABG Chloride ABG Glucose Oxyhemoglobin Sodium 155 H Potassium Chloride 122.8 H Carbon Dioxide 21 L BUN 19 H Creatinine Glucose POC Glucose 120 H Lactic Acid Calcium AST Phosphorus Total Protein Albumin C-Reactive Protein Arterial Blood Glucose Arterial Blood Ionized Calcium Urine WBC (Auto) Crossmatch 01/10/20 01/10/20 01/10/20 11:47 11:57 17:09 WBC RBC Hgb Hct MCHC RDW Plt Count MCH Lymph % (Auto) Lymph # Lymph # (Auto) Seg Neutrophils % Seg Neuts % (Manual) Lymphocytes % (Manual) Seg Neutrophils # Seg Neutrophils # Man Basophils % (Manual) Nucleated RBC % Lymphocytes # (Manual) Monocytes # (Manual) Basophils # (Manual) PT INR Heparin Anti-Xa Level POC ABG pO2 ABG pH ABG Hemoglobin ABG Oxyhemoglobin ABG pO2 ABG HCO3 ABG O2 Saturation ABG Base Excess ABG Potassium ABG Chloride ABG Glucose Oxyhemoglobin Sodium 153 H Potassium Chloride 118.3 H Carbon Dioxide 20 L BUN 19 H Creatinine Glucose 113 H POC Glucose 142 H 125 H Lactic Acid Calcium AST Phosphorus Total Protein Albumin C-Reactive Protein Arterial Blood Glucose Arterial Blood Ionized Calcium Urine WBC (Auto) Crossmatch 01/10/20 01/10/20 01/11/20 20:27 22:00 00:45 WBC RBC Hgb Hct MCHC RDW Plt Count MCH Lymph % (Auto) Lymph # Lymph # (Auto) Seg Neutrophils % Seg Neuts % (Manual) Lymphocytes % (Manual) Seg Neutrophils # Seg Neutrophils # Man Basophils % (Manual) Nucleated RBC % Lymphocytes # (Manual) Monocytes # (Manual) Basophils # (Manual) PT INR Heparin Anti-Xa Level POC ABG pO2 ABG pH ABG Hemoglobin ABG Oxyhemoglobin ABG pO2 ABG HCO3 ABG O2 Saturation ABG Base Excess ABG Potassium ABG Chloride ABG Glucose Oxyhemoglobin Sodium 153 H 154 H Potassium 3.3 L 3.2 L Chloride 117.0 H 118.9 H Carbon Dioxide 20 L BUN Creatinine Glucose POC Glucose 136 H Lactic Acid Calcium 8.3 L 8.0 L AST Phosphorus Total Protein Albumin C-Reactive Protein Arterial Blood Glucose Arterial Blood Ionized Calcium Urine WBC (Auto) Crossmatch 01/11/20 01/11/20 01/11/20 07:06 08:03 11:54 WBC RBC Hgb Hct MCHC RDW Plt Count MCH Lymph % (Auto) Lymph # Lymph # (Auto) Seg Neutrophils % Seg Neuts % (Manual) Lymphocytes % (Manual) Seg Neutrophils # Seg Neutrophils # Man Basophils % (Manual) Nucleated RBC % Lymphocytes # (Manual) Monocytes # (Manual) Basophils # (Manual) PT INR Heparin Anti-Xa Level POC ABG pO2 ABG pH ABG Hemoglobin ABG Oxyhemoglobin ABG pO2 ABG HCO3 ABG O2 Saturation ABG Base Excess ABG Potassium ABG Chloride ABG Glucose Oxyhemoglobin Sodium 151 H Potassium Chloride 118.7 H Carbon Dioxide 21 L BUN Creatinine Glucose 107 H POC Glucose 118 H 164 H Lactic Acid Calcium 8.3 L AST Phosphorus Total Protein Albumin C-Reactive Protein Arterial Blood Glucose Arterial Blood Ionized Calcium Urine WBC (Auto) Crossmatch 01/11/20 01/12/20 01/12/20 16:28 00:19 05:40 WBC RBC Hgb Hct MCHC RDW Plt Count MCH Lymph % (Auto) Lymph # Lymph # (Auto) Seg Neutrophils % Seg Neuts % (Manual) Lymphocytes % (Manual) Seg Neutrophils # Seg Neutrophils # Man Basophils % (Manual) Nucleated RBC % Lymphocytes # (Manual) Monocytes # (Manual) Basophils # (Manual) PT INR Heparin Anti-Xa Level POC ABG pO2 ABG pH ABG Hemoglobin ABG Oxyhemoglobin ABG pO2 ABG HCO3 ABG O2 Saturation ABG Base Excess ABG Potassium ABG Chloride ABG Glucose Oxyhemoglobin Sodium 148 H Potassium Chloride 111.6 H Carbon Dioxide 19 L BUN Creatinine Glucose 128 H POC Glucose 132 H 179 H Lactic Acid Calcium 8.2 L AST Phosphorus Total Protein Albumin C-Reactive Protein Arterial Blood Glucose Arterial Blood Ionized Calcium Urine WBC (Auto) Crossmatch 01/12/20 01/12/20 01/12/20 06:17 11:37 17:21 WBC RBC Hgb Hct MCHC RDW Plt Count MCH Lymph % (Auto) Lymph # Lymph # (Auto) Seg Neutrophils % Seg Neuts % (Manual) Lymphocytes % (Manual) Seg Neutrophils # Seg Neutrophils # Man Basophils % (Manual) Nucleated RBC % Lymphocytes # (Manual) Monocytes # (Manual) Basophils # (Manual) PT INR Heparin Anti-Xa Level POC ABG pO2 ABG pH ABG Hemoglobin ABG Oxyhemoglobin ABG pO2 ABG HCO3 ABG O2 Saturation ABG Base Excess ABG Potassium ABG Chloride ABG Glucose Oxyhemoglobin Sodium Potassium Chloride Carbon Dioxide BUN Creatinine Glucose POC Glucose 140 H 142 H 133 H Lactic Acid Calcium AST Phosphorus Total Protein Albumin C-Reactive Protein Arterial Blood Glucose Arterial Blood Ionized Calcium Urine WBC (Auto) Crossmatch 01/12/20 01/13/20 01/13/20 23:14 05:26 07:00 WBC RBC Hgb Hct MCHC RDW Plt Count MCH Lymph % (Auto) Lymph # Lymph # (Auto) Seg Neutrophils % Seg Neuts % (Manual) Lymphocytes % (Manual) Seg Neutrophils # Seg Neutrophils # Man Basophils % (Manual) Nucleated RBC % Lymphocytes # (Manual) Monocytes # (Manual) Basophils # (Manual) PT INR Heparin Anti-Xa Level POC ABG pO2 ABG pH ABG Hemoglobin ABG Oxyhemoglobin ABG pO2 ABG HCO3 ABG O2 Saturation ABG Base Excess ABG Potassium ABG Chloride ABG Glucose Oxyhemoglobin Sodium Potassium Chloride 110.0 H Carbon Dioxide BUN Creatinine Glucose 139 H POC Glucose 135 H 162 H Lactic Acid Calcium 7.8 L AST Phosphorus Total Protein Albumin C-Reactive Protein Arterial Blood Glucose Arterial Blood Ionized Calcium Urine WBC (Auto) Crossmatch 01/13/20 01/13/20 01/13/20 12:14 17:52 21:40 WBC RBC Hgb Hct MCHC RDW Plt Count MCH Lymph % (Auto) Lymph # Lymph # (Auto) Seg Neutrophils % Seg Neuts % (Manual) Lymphocytes % (Manual) Seg Neutrophils # Seg Neutrophils # Man Basophils % (Manual) Nucleated RBC % Lymphocytes # (Manual) Monocytes # (Manual) Basophils # (Manual) PT INR Heparin Anti-Xa Level POC ABG pO2 ABG pH ABG Hemoglobin ABG Oxyhemoglobin ABG pO2 ABG HCO3 ABG O2 Saturation ABG Base Excess ABG Potassium ABG Chloride ABG Glucose Oxyhemoglobin Sodium Potassium Chloride Carbon Dioxide BUN Creatinine Glucose POC Glucose 205 H 172 H 186 H Lactic Acid Calcium AST Phosphorus Total Protein Albumin C-Reactive Protein Arterial Blood Glucose Arterial Blood Ionized Calcium Urine WBC (Auto) Crossmatch 01/14/20 01/14/20 01/14/20 04:28 11:01 11:01 WBC 14.8 H RBC 3.20 L Hgb 9.5 L Hct 28.0 L MCHC RDW Plt Count MCH Lymph % (Auto) Lymph # Lymph # (Auto) Seg Neutrophils % Seg Neuts % (Manual) Lymphocytes % (Manual) Seg Neutrophils # Seg Neutrophils # Man Basophils % (Manual) Nucleated RBC % Lymphocytes # (Manual) Monocytes # (Manual) Basophils # (Manual) PT INR Heparin Anti-Xa Level POC ABG pO2 ABG pH ABG Hemoglobin ABG Oxyhemoglobin ABG pO2 ABG HCO3 ABG O2 Saturation ABG Base Excess ABG Potassium ABG Chloride ABG Glucose Oxyhemoglobin Sodium Potassium 3.2 L Chloride Carbon Dioxide BUN Creatinine 0.4 L Glucose POC Glucose 115 H Lactic Acid Calcium 8.0 L AST Phosphorus Total Protein Albumin C-Reactive Protein Arterial Blood Glucose Arterial Blood Ionized Calcium Urine WBC (Auto) Crossmatch 01/14/20 01/14/20 01/14/20 11:01 16:33 22:32 WBC RBC Hgb Hct MCHC RDW Plt Count MCH Lymph % (Auto) Lymph # Lymph # (Auto) Seg Neutrophils % Seg Neuts % (Manual) Lymphocytes % (Manual) Seg Neutrophils # Seg Neutrophils # Man Basophils % (Manual) Nucleated RBC % Lymphocytes # (Manual) Monocytes # (Manual) Basophils # (Manual) PT 15.8 H INR 1.23 H Heparin Anti-Xa Level POC ABG pO2 ABG pH ABG Hemoglobin ABG Oxyhemoglobin ABG pO2 ABG HCO3 ABG O2 Saturation ABG Base Excess ABG Potassium ABG Chloride ABG Glucose Oxyhemoglobin Sodium Potassium Chloride Carbon Dioxide BUN Creatinine Glucose POC Glucose 58 L 188 H Lactic Acid Calcium AST Phosphorus Total Protein Albumin C-Reactive Protein Arterial Blood Glucose Arterial Blood Ionized Calcium Urine WBC (Auto) Crossmatch 01/15/20 01/15/20 01/15/20 05:35 06:19 17:17 WBC RBC Hgb Hct MCHC RDW Plt Count MCH Lymph % (Auto) Lymph # Lymph # (Auto) Seg Neutrophils % Seg Neuts % (Manual) Lymphocytes % (Manual) Seg Neutrophils # Seg Neutrophils # Man Basophils % (Manual) Nucleated RBC % Lymphocytes # (Manual) Monocytes # (Manual) Basophils # (Manual) PT INR Heparin Anti-Xa Level POC ABG pO2 ABG pH ABG Hemoglobin ABG Oxyhemoglobin ABG pO2 ABG HCO3 ABG O2 Saturation ABG Base Excess ABG Potassium ABG Chloride ABG Glucose Oxyhemoglobin Sodium Potassium Chloride Carbon Dioxide BUN Creatinine 0.5 L Glucose 104 H POC Glucose 106 H 183 H Lactic Acid Calcium 7.8 L AST Phosphorus Total Protein Albumin C-Reactive Protein Arterial Blood Glucose Arterial Blood Ionized Calcium Urine WBC (Auto) Crossmatch 01/15/20 01/16/20 01/16/20 22:29 05:35 05:59 WBC 14.7 H RBC 3.04 L Hgb 9.0 L Hct 27.0 L MCHC RDW Plt Count MCH Lymph % (Auto) 9.1 L Lymph # Lymph # (Auto) Seg Neutrophils % 87.3 H Seg Neuts % (Manual) Lymphocytes % (Manual) Seg Neutrophils # 12.9 H Seg Neutrophils # Man Basophils % (Manual) Nucleated RBC % Lymphocytes # (Manual) Monocytes # (Manual) Basophils # (Manual) PT INR Heparin Anti-Xa Level POC ABG pO2 ABG pH ABG Hemoglobin ABG Oxyhemoglobin ABG pO2 ABG HCO3 ABG O2 Saturation ABG Base Excess ABG Potassium ABG Chloride ABG Glucose Oxyhemoglobin Sodium Potassium Chloride Carbon Dioxide BUN Creatinine Glucose POC Glucose 228 H 130 H Lactic Acid Calcium AST Phosphorus Total Protein Albumin C-Reactive Protein Arterial Blood Glucose Arterial Blood Ionized Calcium Urine WBC (Auto) Crossmatch 01/16/20 01/16/20 01/16/20 09:52 12:49 17:30 WBC RBC Hgb Hct MCHC RDW Plt Count MCH Lymph % (Auto) Lymph # Lymph # (Auto) Seg Neutrophils % Seg Neuts % (Manual) Lymphocytes % (Manual) Seg Neutrophils # Seg Neutrophils # Man Basophils % (Manual) Nucleated RBC % Lymphocytes # (Manual) Monocytes # (Manual) Basophils # (Manual) PT INR Heparin Anti-Xa Level POC ABG pO2 ABG pH ABG Hemoglobin ABG Oxyhemoglobin ABG pO2 ABG HCO3 ABG O2 Saturation ABG Base Excess ABG Potassium ABG Chloride ABG Glucose Oxyhemoglobin Sodium Potassium Chloride Carbon Dioxide BUN Creatinine Glucose POC Glucose 122 H 142 H 192 H Lactic Acid Calcium AST Phosphorus Total Protein Albumin C-Reactive Protein Arterial Blood Glucose Arterial Blood Ionized Calcium Urine WBC (Auto) Crossmatch 01/16/20 01/17/20 01/17/20 23:01 08:36 08:36 WBC 12.7 H RBC 2.98 L Hgb 8.9 L Hct 26.4 L MCHC RDW Plt Count MCH Lymph % (Auto) 8.8 L Lymph # 1.1 L Lymph # (Auto) Seg Neutrophils % 86.7 H Seg Neuts % (Manual) Lymphocytes % (Manual) Seg Neutrophils # 11.0 H Seg Neutrophils # Man Basophils % (Manual) Nucleated RBC % Lymphocytes # (Manual) Monocytes # (Manual) Basophils # (Manual) PT INR Heparin Anti-Xa Level POC ABG pO2 ABG pH ABG Hemoglobin ABG Oxyhemoglobin ABG pO2 ABG HCO3 ABG O2 Saturation ABG Base Excess ABG Potassium ABG Chloride ABG Glucose Oxyhemoglobin Sodium Potassium 3.3 L D Chloride Carbon Dioxide BUN Creatinine 0.4 L Glucose POC Glucose 141 H Lactic Acid Calcium 8.1 L AST Phosphorus Total Protein 4.6 L Albumin 1.6 L C-Reactive Protein Arterial Blood Glucose Arterial Blood Ionized Calcium Urine WBC (Auto) Crossmatch 01/17/20 01/17/20 01/18/20 11:43 23:56 06:27 WBC RBC Hgb Hct MCHC RDW Plt Count MCH Lymph % (Auto) Lymph # Lymph # (Auto) Seg Neutrophils % Seg Neuts % (Manual) Lymphocytes % (Manual) Seg Neutrophils # Seg Neutrophils # Man Basophils % (Manual) Nucleated RBC % Lymphocytes # (Manual) Monocytes # (Manual) Basophils # (Manual) PT INR Heparin Anti-Xa Level POC ABG pO2 ABG pH ABG Hemoglobin ABG Oxyhemoglobin ABG pO2 ABG HCO3 ABG O2 Saturation ABG Base Excess ABG Potassium ABG Chloride ABG Glucose Oxyhemoglobin Sodium Potassium Chloride Carbon Dioxide BUN Creatinine Glucose POC Glucose 137 H 215 H 122 H Lactic Acid Calcium AST Phosphorus Total Protein Albumin C-Reactive Protein Arterial Blood Glucose Arterial Blood Ionized Calcium Urine WBC (Auto) Crossmatch 01/18/20 01/18/20 01/18/20 07:31 07:31 11:39 WBC 12.1 H RBC 3.23 L Hgb 9.7 L Hct 28.7 L MCHC RDW Plt Count MCH Lymph % (Auto) 9.2 L Lymph # 1.1 L Lymph # (Auto) Seg Neutrophils % 85.0 H Seg Neuts % (Manual) Lymphocytes % (Manual) Seg Neutrophils # 10.3 H Seg Neutrophils # Man Basophils % (Manual) Nucleated RBC % Lymphocytes # (Manual) Monocytes # (Manual) Basophils # (Manual) PT INR Heparin Anti-Xa Level POC ABG pO2 ABG pH ABG Hemoglobin ABG Oxyhemoglobin ABG pO2 ABG HCO3 ABG O2 Saturation ABG Base Excess ABG Potassium ABG Chloride ABG Glucose Oxyhemoglobin Sodium Potassium Chloride Carbon Dioxide BUN Creatinine 0.4 L Glucose 108 H POC Glucose 172 H Lactic Acid Calcium AST Phosphorus Total Protein 5.3 L Albumin 2.1 L C-Reactive Protein Arterial Blood Glucose Arterial Blood Ionized Calcium Urine WBC (Auto) Crossmatch 01/18/20 01/19/20 01/19/20 18:22 00:15 11:30 WBC RBC Hgb Hct MCHC RDW Plt Count MCH Lymph % (Auto) Lymph # Lymph # (Auto) Seg Neutrophils % Seg Neuts % (Manual) Lymphocytes % (Manual) Seg Neutrophils # Seg Neutrophils # Man Basophils % (Manual) Nucleated RBC % Lymphocytes # (Manual) Monocytes # (Manual) Basophils # (Manual) PT INR Heparin Anti-Xa Level POC ABG pO2 ABG pH ABG Hemoglobin ABG Oxyhemoglobin ABG pO2 ABG HCO3 ABG O2 Saturation ABG Base Excess ABG Potassium ABG Chloride ABG Glucose Oxyhemoglobin Sodium Potassium Chloride Carbon Dioxide BUN Creatinine Glucose POC Glucose 119 H 135 H 163 H Lactic Acid Calcium AST Phosphorus Total Protein Albumin C-Reactive Protein Arterial Blood Glucose Arterial Blood Ionized Calcium Urine WBC (Auto) Crossmatch 01/19/20 01/19/20 01/20/20 17:44 22:59 03:44 WBC 11.1 H RBC 2.77 L Hgb 8.4 L Hct 25.0 L MCHC RDW Plt Count MCH Lymph % (Auto) Lymph # Lymph # (Auto) Seg Neutrophils % 74.6 H Seg Neuts % (Manual) Lymphocytes % (Manual) Seg Neutrophils # 8.3 H Seg Neutrophils # Man Basophils % (Manual) Nucleated RBC % Lymphocytes # (Manual) Monocytes # (Manual) Basophils # (Manual) PT INR Heparin Anti-Xa Level POC ABG pO2 ABG pH ABG Hemoglobin ABG Oxyhemoglobin ABG pO2 ABG HCO3 ABG O2 Saturation ABG Base Excess ABG Potassium ABG Chloride ABG Glucose Oxyhemoglobin Sodium Potassium Chloride Carbon Dioxide BUN Creatinine Glucose POC Glucose 161 H 182 H Lactic Acid Calcium AST Phosphorus Total Protein Albumin C-Reactive Protein Arterial Blood Glucose Arterial Blood Ionized Calcium Urine WBC (Auto) Crossmatch 01/20/20 01/21/20 01/21/20 03:44 00:07 05:51 WBC RBC 2.84 L Hgb 8.6 L Hct 25.5 L MCHC RDW Plt Count 463 H MCH Lymph % (Auto) Lymph # Lymph # (Auto) Seg Neutrophils % 76.9 H Seg Neuts % (Manual) Lymphocytes % (Manual) Seg Neutrophils # 7.8 H Seg Neutrophils # Man Basophils % (Manual) Nucleated RBC % Lymphocytes # (Manual) Monocytes # (Manual) Basophils # (Manual) PT INR Heparin Anti-Xa Level POC ABG pO2 ABG pH ABG Hemoglobin ABG Oxyhemoglobin ABG pO2 ABG HCO3 ABG O2 Saturation ABG Base Excess ABG Potassium ABG Chloride ABG Glucose Oxyhemoglobin Sodium Potassium Chloride Carbon Dioxide BUN Creatinine 0.4 L Glucose POC Glucose 68 L Lactic Acid Calcium 7.9 L AST Phosphorus Total Protein 4.7 L Albumin 1.9 L C-Reactive Protein Arterial Blood Glucose Arterial Blood Ionized Calcium Urine WBC (Auto) Crossmatch 01/21/20 01/21/20 01/21/20 05:51 05:58 11:25 WBC RBC Hgb Hct MCHC RDW Plt Count MCH Lymph % (Auto) Lymph # Lymph # (Auto) Seg Neutrophils % Seg Neuts % (Manual) Lymphocytes % (Manual) Seg Neutrophils # Seg Neutrophils # Man Basophils % (Manual) Nucleated RBC % Lymphocytes # (Manual) Monocytes # (Manual) Basophils # (Manual) PT INR Heparin Anti-Xa Level POC ABG pO2 ABG pH ABG Hemoglobin ABG Oxyhemoglobin ABG pO2 ABG HCO3 ABG O2 Saturation ABG Base Excess ABG Potassium ABG Chloride ABG Glucose Oxyhemoglobin Sodium Potassium Chloride Carbon Dioxide 20 L BUN Creatinine 0.5 L Glucose 130 H POC Glucose 185 H 163 H Lactic Acid Calcium 7.6 L AST Phosphorus Total Protein 5.0 L Albumin 1.9 L C-Reactive Protein Arterial Blood Glucose Arterial Blood Ionized Calcium Urine WBC (Auto) Crossmatch 01/21/20 01/21/20 01/22/20 16:22 21:17 01:28 WBC RBC 2.60 L Hgb 8.0 L Hct 23.3 L MCHC RDW Plt Count MCH Lymph % (Auto) Lymph # Lymph # (Auto) Seg Neutrophils % 74.8 H Seg Neuts % (Manual) Lymphocytes % (Manual) Seg Neutrophils # Seg Neutrophils # Man Basophils % (Manual) Nucleated RBC % Lymphocytes # (Manual) Monocytes # (Manual) Basophils # (Manual) PT INR Heparin Anti-Xa Level POC ABG pO2 ABG pH ABG Hemoglobin ABG Oxyhemoglobin ABG pO2 ABG HCO3 ABG O2 Saturation ABG Base Excess ABG Potassium ABG Chloride ABG Glucose Oxyhemoglobin Sodium Potassium Chloride Carbon Dioxide BUN Creatinine Glucose POC Glucose 177 H 67 L Lactic Acid Calcium AST Phosphorus Total Protein Albumin C-Reactive Protein Arterial Blood Glucose Arterial Blood Ionized Calcium Urine WBC (Auto) Crossmatch 01/22/20 01/22/20 01/22/20 01:28 01:28 12:06 WBC RBC Hgb Hct MCHC RDW Plt Count MCH Lymph % (Auto) Lymph # Lymph # (Auto) Seg Neutrophils % Seg Neuts % (Manual) Lymphocytes % (Manual) Seg Neutrophils # Seg Neutrophils # Man Basophils % (Manual) Nucleated RBC % Lymphocytes # (Manual) Monocytes # (Manual) Basophils # (Manual) PT INR Heparin Anti-Xa Level POC ABG pO2 ABG pH ABG Hemoglobin ABG Oxyhemoglobin ABG pO2 ABG HCO3 ABG O2 Saturation ABG Base Excess ABG Potassium ABG Chloride ABG Glucose Oxyhemoglobin Sodium Potassium Chloride 107.6 H Carbon Dioxide BUN Creatinine 0.4 L Glucose 152 H POC Glucose 203 H 140 H Lactic Acid Calcium 7.5 L AST Phosphorus Total Protein 4.0 L Albumin 2.0 L C-Reactive Protein Arterial Blood Glucose Arterial Blood Ionized Calcium Urine WBC (Auto) Crossmatch 01/22/20 01/22/20 01/23/20 16:24 22:55 06:10 WBC RBC 2.68 L Hgb 8.6 L Hct 24.1 L MCHC 36 H RDW Plt Count MCH Lymph % (Auto) Lymph # Lymph # (Auto) Seg Neutrophils % Seg Neuts % (Manual) 71.0 H Lymphocytes % (Manual) Seg Neutrophils # Seg Neutrophils # Man Basophils % (Manual) Nucleated RBC % Lymphocytes # (Manual) Monocytes # (Manual) Basophils # (Manual) PT INR Heparin Anti-Xa Level POC ABG pO2 ABG pH ABG Hemoglobin ABG Oxyhemoglobin ABG pO2 ABG HCO3 ABG O2 Saturation ABG Base Excess ABG Potassium ABG Chloride ABG Glucose Oxyhemoglobin Sodium Potassium Chloride Carbon Dioxide BUN Creatinine Glucose POC Glucose 205 H 196 H Lactic Acid Calcium AST Phosphorus Total Protein Albumin C-Reactive Protein Arterial Blood Glucose Arterial Blood Ionized Calcium Urine WBC (Auto) Crossmatch 01/23/20 01/23/20 01/23/20 06:10 07:35 11:59 WBC RBC Hgb Hct MCHC RDW Plt Count MCH Lymph % (Auto) Lymph # Lymph # (Auto) Seg Neutrophils % Seg Neuts % (Manual) Lymphocytes % (Manual) Seg Neutrophils # Seg Neutrophils # Man Basophils % (Manual) Nucleated RBC % Lymphocytes # (Manual) Monocytes # (Manual) Basophils # (Manual) PT INR Heparin Anti-Xa Level POC ABG pO2 ABG pH ABG Hemoglobin ABG Oxyhemoglobin ABG pO2 ABG HCO3 ABG O2 Saturation ABG Base Excess ABG Potassium ABG Chloride ABG Glucose Oxyhemoglobin Sodium Potassium Chloride 108.8 H Carbon Dioxide BUN Creatinine 0.4 L Glucose 105 H POC Glucose 111 H 123 H Lactic Acid Calcium 8.0 L AST Phosphorus Total Protein 4.9 L D Albumin 2.0 L C-Reactive Protein Arterial Blood Glucose Arterial Blood Ionized Calcium Urine WBC (Auto) Crossmatch 01/23/20 01/24/20 01/24/20 22:45 11:24 16:41 WBC RBC Hgb Hct MCHC RDW Plt Count MCH Lymph % (Auto) Lymph # Lymph # (Auto) Seg Neutrophils % Seg Neuts % (Manual) Lymphocytes % (Manual) Seg Neutrophils # Seg Neutrophils # Man Basophils % (Manual) Nucleated RBC % Lymphocytes # (Manual) Monocytes # (Manual) Basophils # (Manual) PT INR Heparin Anti-Xa Level POC ABG pO2 ABG pH ABG Hemoglobin ABG Oxyhemoglobin ABG pO2 ABG HCO3 ABG O2 Saturation ABG Base Excess ABG Potassium ABG Chloride ABG Glucose Oxyhemoglobin Sodium Potassium Chloride Carbon Dioxide BUN Creatinine Glucose POC Glucose 180 H 182 H 177 H Lactic Acid Calcium AST Phosphorus Total Protein Albumin C-Reactive Protein Arterial Blood Glucose Arterial Blood Ionized Calcium Urine WBC (Auto) Crossmatch 01/24/20 01/25/20 01/25/20 23:11 07:12 11:35 WBC RBC Hgb Hct MCHC RDW Plt Count MCH Lymph % (Auto) Lymph # Lymph # (Auto) Seg Neutrophils % Seg Neuts % (Manual) Lymphocytes % (Manual) Seg Neutrophils # Seg Neutrophils # Man Basophils % (Manual) Nucleated RBC % Lymphocytes # (Manual) Monocytes # (Manual) Basophils # (Manual) PT INR Heparin Anti-Xa Level POC ABG pO2 ABG pH ABG Hemoglobin ABG Oxyhemoglobin ABG pO2 ABG HCO3 ABG O2 Saturation ABG Base Excess ABG Potassium ABG Chloride ABG Glucose Oxyhemoglobin Sodium Potassium Chloride Carbon Dioxide BUN Creatinine Glucose POC Glucose 142 H 135 H 142 H Lactic Acid Calcium AST Phosphorus Total Protein Albumin C-Reactive Protein Arterial Blood Glucose Arterial Blood Ionized Calcium Urine WBC (Auto) Crossmatch 01/25/20 01/26/20 01/26/20 16:33 00:04 11:35 WBC RBC Hgb Hct MCHC RDW Plt Count MCH Lymph % (Auto) Lymph # Lymph # (Auto) Seg Neutrophils % Seg Neuts % (Manual) Lymphocytes % (Manual) Seg Neutrophils # Seg Neutrophils # Man Basophils % (Manual) Nucleated RBC % Lymphocytes # (Manual) Monocytes # (Manual) Basophils # (Manual) PT INR Heparin Anti-Xa Level POC ABG pO2 ABG pH ABG Hemoglobin ABG Oxyhemoglobin ABG pO2 ABG HCO3 ABG O2 Saturation ABG Base Excess ABG Potassium ABG Chloride ABG Glucose Oxyhemoglobin Sodium Potassium Chloride Carbon Dioxide BUN Creatinine Glucose POC Glucose 247 H 233 H 200 H Lactic Acid Calcium AST Phosphorus Total Protein Albumin C-Reactive Protein Arterial Blood Glucose Arterial Blood Ionized Calcium Urine WBC (Auto) Crossmatch 01/26/20 01/26/20 01/26/20 16:30 16:30 17:19 WBC RBC Hgb 7.4 L Hct 22.0 L MCHC RDW Plt Count MCH Lymph % (Auto) Lymph # Lymph # (Auto) Seg Neutrophils % Seg Neuts % (Manual) Lymphocytes % (Manual) Seg Neutrophils # Seg Neutrophils # Man Basophils % (Manual) Nucleated RBC % Lymphocytes # (Manual) Monocytes # (Manual) Basophils # (Manual) PT 18.4 H INR 1.50 H Heparin Anti-Xa Level POC ABG pO2 ABG pH ABG Hemoglobin ABG Oxyhemoglobin ABG pO2 ABG HCO3 ABG O2 Saturation ABG Base Excess ABG Potassium ABG Chloride ABG Glucose Oxyhemoglobin Sodium Potassium Chloride Carbon Dioxide BUN Creatinine Glucose POC Glucose 67 L Lactic Acid Calcium AST Phosphorus Total Protein Albumin C-Reactive Protein Arterial Blood Glucose Arterial Blood Ionized Calcium Urine WBC (Auto) Crossmatch 01/26/20 01/26/20 01/27/20 20:24 21:32 00:16 WBC RBC Hgb Hct MCHC RDW Plt Count MCH Lymph % (Auto) Lymph # Lymph # (Auto) Seg Neutrophils % Seg Neuts % (Manual) Lymphocytes % (Manual) Seg Neutrophils # Seg Neutrophils # Man Basophils % (Manual) Nucleated RBC % Lymphocytes # (Manual) Monocytes # (Manual) Basophils # (Manual) PT INR Heparin Anti-Xa Level POC ABG pO2 51.8 L ABG pH ABG Hemoglobin 8.5 L ABG Oxyhemoglobin 84.7 L ABG pO2 ABG HCO3 ABG O2 Saturation ABG Base Excess ABG Potassium ABG Chloride ABG Glucose Oxyhemoglobin Sodium Potassium Chloride Carbon Dioxide BUN Creatinine Glucose POC Glucose 162 H 141 H Lactic Acid Calcium AST Phosphorus Total Protein Albumin C-Reactive Protein Arterial Blood Glucose Arterial Blood Ionized Calcium Urine WBC (Auto) Crossmatch 01/27/20 01/27/20 01/27/20 01:42 02:18 05:57 WBC RBC Hgb Hct MCHC RDW Plt Count MCH Lymph % (Auto) Lymph # Lymph # (Auto) Seg Neutrophils % Seg Neuts % (Manual) Lymphocytes % (Manual) Seg Neutrophils # Seg Neutrophils # Man Basophils % (Manual) Nucleated RBC % Lymphocytes # (Manual) Monocytes # (Manual) Basophils # (Manual) PT INR Heparin Anti-Xa Level 2.00 H POC ABG pO2 ABG pH ABG Hemoglobin ABG Oxyhemoglobin ABG pO2 ABG HCO3 ABG O2 Saturation ABG Base Excess ABG Potassium ABG Chloride ABG Glucose Oxyhemoglobin Sodium Potassium Chloride Carbon Dioxide BUN Creatinine Glucose POC Glucose 183 H 124 H Lactic Acid Calcium AST Phosphorus Total Protein Albumin C-Reactive Protein Arterial Blood Glucose Arterial Blood Ionized Calcium Urine WBC (Auto) Crossmatch 01/27/20 01/27/20 01/27/20 06:30 06:30 12:23 WBC RBC 2.75 L Hgb 8.4 L Hct 24.9 L MCHC RDW 16.0 H Plt Count 474 H MCH Lymph % (Auto) 12.7 L Lymph # Lymph # (Auto) Seg Neutrophils % 83.2 H Seg Neuts % (Manual) Lymphocytes % (Manual) Seg Neutrophils # 8.4 H Seg Neutrophils # Man Basophils % (Manual) Nucleated RBC % Lymphocytes # (Manual) Monocytes # (Manual) Basophils # (Manual) PT INR Heparin Anti-Xa Level POC ABG pO2 ABG pH ABG Hemoglobin ABG Oxyhemoglobin ABG pO2 ABG HCO3 ABG O2 Saturation ABG Base Excess ABG Potassium ABG Chloride ABG Glucose Oxyhemoglobin Sodium Potassium 3.5 L Chloride 110.2 H Carbon Dioxide BUN Creatinine 0.4 L Glucose 101 H POC Glucose 126 H Lactic Acid Calcium 7.8 L AST Phosphorus Total Protein Albumin C-Reactive Protein Arterial Blood Glucose Arterial Blood Ionized Calcium Urine WBC (Auto) Crossmatch 01/27/20 01/27/20 01/28/20 17:31 23:40 00:00 WBC RBC Hgb Hct MCHC RDW Plt Count MCH Lymph % (Auto) Lymph # Lymph # (Auto) Seg Neutrophils % Seg Neuts % (Manual) Lymphocytes % (Manual) Seg Neutrophils # Seg Neutrophils # Man Basophils % (Manual) Nucleated RBC % Lymphocytes # (Manual) Monocytes # (Manual) Basophils # (Manual) PT INR Heparin Anti-Xa Level 2.00 H POC ABG pO2 ABG pH ABG Hemoglobin ABG Oxyhemoglobin ABG pO2 ABG HCO3 ABG O2 Saturation ABG Base Excess ABG Potassium ABG Chloride ABG Glucose Oxyhemoglobin Sodium Potassium Chloride Carbon Dioxide BUN Creatinine Glucose POC Glucose 133 H 136 H Lactic Acid Calcium AST Phosphorus Total Protein Albumin C-Reactive Protein Arterial Blood Glucose Arterial Blood Ionized Calcium Urine WBC (Auto) Crossmatch 01/28/20 01/28/20 01/28/20 04:26 04:26 05:35 WBC RBC Hgb 9.6 L Hct 28.5 L MCHC RDW Plt Count 508 H MCH Lymph % (Auto) Lymph # Lymph # (Auto) Seg Neutrophils % Seg Neuts % (Manual) Lymphocytes % (Manual) Seg Neutrophils # Seg Neutrophils # Man Basophils % (Manual) Nucleated RBC % Lymphocytes # (Manual) Monocytes # (Manual) Basophils # (Manual) PT INR Heparin Anti-Xa Level POC ABG pO2 ABG pH ABG Hemoglobin ABG Oxyhemoglobin ABG pO2 ABG HCO3 ABG O2 Saturation ABG Base Excess ABG Potassium ABG Chloride ABG Glucose Oxyhemoglobin Sodium Potassium Chloride Carbon Dioxide 19 L BUN 20 H Creatinine 0.5 L Glucose 103 H POC Glucose 135 H Lactic Acid Calcium 7.9 L AST Phosphorus Total Protein Albumin C-Reactive Protein Arterial Blood Glucose Arterial Blood Ionized Calcium Urine WBC (Auto) Crossmatch 01/28/20 01/28/20 01/28/20 08:50 11:10 11:51 WBC RBC Hgb Hct MCHC RDW Plt Count MCH Lymph % (Auto) Lymph # Lymph # (Auto) Seg Neutrophils % Seg Neuts % (Manual) Lymphocytes % (Manual) Seg Neutrophils # Seg Neutrophils # Man Basophils % (Manual) Nucleated RBC % Lymphocytes # (Manual) Monocytes # (Manual) Basophils # (Manual) PT INR Heparin Anti-Xa Level 0.74 H POC ABG pO2 67.2 L ABG pH ABG Hemoglobin 9.3 L ABG Oxyhemoglobin ABG pO2 ABG HCO3 ABG O2 Saturation ABG Base Excess ABG Potassium ABG Chloride ABG Glucose Oxyhemoglobin Sodium Potassium Chloride Carbon Dioxide BUN Creatinine Glucose POC Glucose 160 H Lactic Acid Calcium AST Phosphorus Total Protein Albumin C-Reactive Protein Arterial Blood Glucose Arterial Blood Ionized Calcium Urine WBC (Auto) Crossmatch 01/28/20 01/28/20 01/29/20 17:19 23:53 03:52 WBC RBC Hgb Hct MCHC RDW Plt Count MCH Lymph % (Auto) Lymph # Lymph # (Auto) Seg Neutrophils % Seg Neuts % (Manual) Lymphocytes % (Manual) Seg Neutrophils # Seg Neutrophils # Man Basophils % (Manual) Nucleated RBC % Lymphocytes # (Manual) Monocytes # (Manual) Basophils # (Manual) PT INR Heparin Anti-Xa Level POC ABG pO2 ABG pH 7.510 H ABG Hemoglobin 7.3 L ABG Oxyhemoglobin ABG pO2 357.0 H ABG HCO3 19.6 L ABG O2 Saturation 99.6 H ABG Base Excess -2.9 L ABG Potassium ABG Chloride ABG Glucose Oxyhemoglobin Sodium Potassium Chloride Carbon Dioxide BUN Creatinine Glucose POC Glucose 177 H 142 H Lactic Acid Calcium AST Phosphorus Total Protein Albumin C-Reactive Protein Arterial Blood Glucose Arterial Blood Ionized Calcium Urine WBC (Auto) Crossmatch 01/29/20 01/29/20 01/29/20 04:58 04:58 06:01 WBC 13.1 H RBC 2.75 L Hgb 8.6 L Hct 25.6 L MCHC RDW 17.7 H Plt Count MCH Lymph % (Auto) Lymph # Lymph # (Auto) Seg Neutrophils % Seg Neuts % (Manual) 91.0 H Lymphocytes % (Manual) 6.0 L Seg Neutrophils # Seg Neutrophils # Man 11.9 H Basophils % (Manual) Nucleated RBC % 1.0 H Lymphocytes # (Manual) 0.8 L Monocytes # (Manual) Basophils # (Manual) PT INR Heparin Anti-Xa Level POC ABG pO2 ABG pH ABG Hemoglobin ABG Oxyhemoglobin ABG pO2 ABG HCO3 ABG O2 Saturation ABG Base Excess ABG Potassium ABG Chloride ABG Glucose Oxyhemoglobin Sodium 148 H Potassium 3.5 L D Chloride 113.2 H Carbon Dioxide 21 L BUN 20 H Creatinine Glucose 137 H POC Glucose 167 H Lactic Acid Calcium 8.1 L AST Phosphorus Total Protein Albumin C-Reactive Protein Arterial Blood Glucose Arterial Blood Ionized Calcium Urine WBC (Auto) Crossmatch 01/29/20 01/29/20 01/29/20 11:45 17:52 23:49 WBC RBC Hgb Hct MCHC RDW Plt Count MCH Lymph % (Auto) Lymph # Lymph # (Auto) Seg Neutrophils % Seg Neuts % (Manual) Lymphocytes % (Manual) Seg Neutrophils # Seg Neutrophils # Man Basophils % (Manual) Nucleated RBC % Lymphocytes # (Manual) Monocytes # (Manual) Basophils # (Manual) PT INR Heparin Anti-Xa Level POC ABG pO2 ABG pH ABG Hemoglobin ABG Oxyhemoglobin ABG pO2 ABG HCO3 ABG O2 Saturation ABG Base Excess ABG Potassium ABG Chloride ABG Glucose Oxyhemoglobin Sodium Potassium Chloride Carbon Dioxide BUN Creatinine Glucose POC Glucose 185 H 226 H 141 H Lactic Acid Calcium AST Phosphorus Total Protein Albumin C-Reactive Protein Arterial Blood Glucose Arterial Blood Ionized Calcium Urine WBC (Auto) Crossmatch 01/29/20 01/30/20 01/30/20 Unknown 03:24 04:00 WBC RBC Hgb 7.8 L Hct 23.5 L MCHC RDW Plt Count MCH Lymph % (Auto) Lymph # Lymph # (Auto) Seg Neutrophils % Seg Neuts % (Manual) Lymphocytes % (Manual) Seg Neutrophils # Seg Neutrophils # Man Basophils % (Manual) Nucleated RBC % Lymphocytes # (Manual) Monocytes # (Manual) Basophils # (Manual) PT INR Heparin Anti-Xa Level POC ABG pO2 ABG pH 7.485 H ABG Hemoglobin 6.7 L ABG Oxyhemoglobin ABG pO2 102.0 H ABG HCO3 ABG O2 Saturation ABG Base Excess ABG Potassium ABG Chloride ABG Glucose Oxyhemoglobin Sodium Potassium Chloride Carbon Dioxide BUN Creatinine Glucose POC Glucose Lactic Acid Calcium AST Phosphorus Total Protein Albumin C-Reactive Protein 14.80 H Arterial Blood Glucose Arterial Blood Ionized Calcium Urine WBC (Auto) Crossmatch 01/30/20 01/30/20 01/30/20 05:50 11:15 17:07 WBC RBC Hgb Hct MCHC RDW Plt Count MCH Lymph % (Auto) Lymph # Lymph # (Auto) Seg Neutrophils % Seg Neuts % (Manual) Lymphocytes % (Manual) Seg Neutrophils # Seg Neutrophils # Man Basophils % (Manual) Nucleated RBC % Lymphocytes # (Manual) Monocytes # (Manual) Basophils # (Manual) PT INR Heparin Anti-Xa Level POC ABG pO2 ABG pH ABG Hemoglobin ABG Oxyhemoglobin ABG pO2 ABG HCO3 ABG O2 Saturation ABG Base Excess ABG Potassium ABG Chloride ABG Glucose Oxyhemoglobin Sodium Potassium Chloride Carbon Dioxide BUN Creatinine Glucose POC Glucose 122 H 207 H 124 H Lactic Acid Calcium AST Phosphorus Total Protein Albumin C-Reactive Protein Arterial Blood Glucose Arterial Blood Ionized Calcium Urine WBC (Auto) Crossmatch 01/30/20 01/31/20 01/31/20 17:08 00:10 04:52 WBC RBC Hgb Hct MCHC RDW Plt Count MCH Lymph % (Auto) Lymph # Lymph # (Auto) Seg Neutrophils % Seg Neuts % (Manual) Lymphocytes % (Manual) Seg Neutrophils # Seg Neutrophils # Man Basophils % (Manual) Nucleated RBC % Lymphocytes # (Manual) Monocytes # (Manual) Basophils # (Manual) PT INR Heparin Anti-Xa Level POC ABG pO2 ABG pH 7.504 H 7.486 H ABG Hemoglobin 7.4 L 6.2 L ABG Oxyhemoglobin ABG pO2 169.2 H 121.7 H ABG HCO3 27.1 H ABG O2 Saturation 99.1 H ABG Base Excess 3.4 H ABG Potassium ABG Chloride ABG Glucose Oxyhemoglobin Sodium Potassium Chloride Carbon Dioxide BUN Creatinine Glucose POC Glucose 191 H Lactic Acid Calcium AST Phosphorus Total Protein Albumin C-Reactive Protein Arterial Blood Glucose Arterial Blood Ionized Calcium Urine WBC (Auto) Crossmatch 01/31/20 01/31/20 01/31/20 05:37 11:59 12:40 WBC RBC 2.41 L Hgb 7.5 L Hct 22.3 L MCHC RDW 22.2 H Plt Count MCH Lymph % (Auto) Lymph # Lymph # (Auto) Seg Neutrophils % Seg Neuts % (Manual) 94.0 H Lymphocytes % (Manual) 2.0 L Seg Neutrophils # Seg Neutrophils # Man 9.4 H Basophils % (Manual) Nucleated RBC % Lymphocytes # (Manual) 0.2 L Monocytes # (Manual) Basophils # (Manual) PT INR Heparin Anti-Xa Level POC ABG pO2 ABG pH ABG Hemoglobin ABG Oxyhemoglobin ABG pO2 ABG HCO3 ABG O2 Saturation ABG Base Excess ABG Potassium ABG Chloride ABG Glucose Oxyhemoglobin Sodium Potassium Chloride Carbon Dioxide BUN Creatinine Glucose POC Glucose 175 H 220 H Lactic Acid Calcium AST Phosphorus Total Protein Albumin C-Reactive Protein Arterial Blood Glucose Arterial Blood Ionized Calcium Urine WBC (Auto) Crossmatch 01/31/20 01/31/20 01/31/20 12:40 14:40 18:18 WBC RBC Hgb Hct MCHC RDW Plt Count MCH Lymph % (Auto) Lymph # Lymph # (Auto) Seg Neutrophils % Seg Neuts % (Manual) Lymphocytes % (Manual) Seg Neutrophils # Seg Neutrophils # Man Basophils % (Manual) Nucleated RBC % Lymphocytes # (Manual) Monocytes # (Manual) Basophils # (Manual) PT INR Heparin Anti-Xa Level POC ABG pO2 124.7 H ABG pH 7.542 H ABG Hemoglobin 7.8 L ABG Oxyhemoglobin ABG pO2 ABG HCO3 ABG O2 Saturation ABG Base Excess ABG Potassium ABG Chloride ABG Glucose Oxyhemoglobin Sodium 151 H Potassium 2.1 L* D Chloride 108.9 H Carbon Dioxide BUN 22 H Creatinine Glucose 194 H POC Glucose 181 H Lactic Acid Calcium 8.1 L AST Phosphorus Total Protein 4.8 L Albumin 2.3 L C-Reactive Protein Arterial Blood Glucose Arterial Blood Ionized Calcium Urine WBC (Auto) Crossmatch 02/01/20 02/01/20 02/01/20 00:11 03:14 04:32 WBC 11.9 H RBC 2.47 L Hgb 7.6 L Hct 22.8 L MCHC RDW 22.7 H Plt Count MCH Lymph % (Auto) Lymph # Lymph # (Auto) Seg Neutrophils % Seg Neuts % (Manual) 90.0 H Lymphocytes % (Manual) 5.0 L Seg Neutrophils # Seg Neutrophils # Man 10.7 H Basophils % (Manual) Nucleated RBC % Lymphocytes # (Manual) 0.6 L Monocytes # (Manual) Basophils # (Manual) PT INR Heparin Anti-Xa Level POC ABG pO2 ABG pH 7.564 H ABG Hemoglobin 7.6 L ABG Oxyhemoglobin ABG pO2 124.1 H ABG HCO3 29.6 H ABG O2 Saturation ABG Base Excess 7.0 H ABG Potassium ABG Chloride ABG Glucose Oxyhemoglobin Sodium Potassium Chloride Carbon Dioxide BUN Creatinine Glucose POC Glucose 190 H Lactic Acid Calcium AST Phosphorus Total Protein Albumin C-Reactive Protein Arterial Blood Glucose Arterial Blood Ionized Calcium Urine WBC (Auto) Crossmatch 02/01/20 02/01/20 02/01/20 04:32 05:28 11:56 WBC RBC Hgb Hct MCHC RDW Plt Count MCH Lymph % (Auto) Lymph # Lymph # (Auto) Seg Neutrophils % Seg Neuts % (Manual) Lymphocytes % (Manual) Seg Neutrophils # Seg Neutrophils # Man Basophils % (Manual) Nucleated RBC % Lymphocytes # (Manual) Monocytes # (Manual) Basophils # (Manual) PT INR Heparin Anti-Xa Level POC ABG pO2 ABG pH ABG Hemoglobin ABG Oxyhemoglobin ABG pO2 ABG HCO3 ABG O2 Saturation ABG Base Excess ABG Potassium ABG Chloride ABG Glucose Oxyhemoglobin Sodium 149 H Potassium 2.6 L* D Chloride Carbon Dioxide 33 H BUN 23 H Creatinine 0.5 L Glucose 174 H POC Glucose 187 H 195 H Lactic Acid Calcium 8.0 L AST Phosphorus 1.60 L Total Protein Albumin C-Reactive Protein Arterial Blood Glucose Arterial Blood Ionized Calcium Urine WBC (Auto) Crossmatch 02/01/20 02/01/20 02/02/20 18:15 23:35 04:33 WBC RBC Hgb Hct MCHC RDW Plt Count MCH Lymph % (Auto) Lymph # Lymph # (Auto) Seg Neutrophils % Seg Neuts % (Manual) Lymphocytes % (Manual) Seg Neutrophils # Seg Neutrophils # Man Basophils % (Manual) Nucleated RBC % Lymphocytes # (Manual) Monocytes # (Manual) Basophils # (Manual) PT INR Heparin Anti-Xa Level POC ABG pO2 ABG pH 7.549 H ABG Hemoglobin 9.8 L ABG Oxyhemoglobin ABG pO2 ABG HCO3 ABG O2 Saturation ABG Base Excess ABG Potassium ABG Chloride ABG Glucose Oxyhemoglobin Sodium Potassium Chloride Carbon Dioxide BUN Creatinine Glucose POC Glucose 226 H 252 H Lactic Acid Calcium AST Phosphorus Total Protein Albumin C-Reactive Protein Arterial Blood Glucose Arterial Blood Ionized Calcium Urine WBC (Auto) Crossmatch 02/02/20 02/02/20 02/02/20 05:25 05:25 05:40 WBC 15.5 H RBC 2.43 L Hgb 7.6 L Hct 22.9 L MCHC RDW 23.6 H Plt Count MCH Lymph % (Auto) Lymph # Lymph # (Auto) Seg Neutrophils % Seg Neuts % (Manual) 89.0 H Lymphocytes % (Manual) 3.0 L Seg Neutrophils # Seg Neutrophils # Man 13.8 H Basophils % (Manual) Nucleated RBC % Lymphocytes # (Manual) 0.5 L Monocytes # (Manual) 0.9 H Basophils # (Manual) PT INR Heparin Anti-Xa Level POC ABG pO2 ABG pH ABG Hemoglobin ABG Oxyhemoglobin ABG pO2 ABG HCO3 ABG O2 Saturation ABG Base Excess ABG Potassium ABG Chloride ABG Glucose Oxyhemoglobin Sodium Potassium 2.6 L* Chloride Carbon Dioxide 33 H BUN 26 H Creatinine Glucose 175 H POC Glucose 181 H Lactic Acid Calcium 7.9 L AST Phosphorus Total Protein Albumin C-Reactive Protein Arterial Blood Glucose Arterial Blood Ionized Calcium Urine WBC (Auto) Crossmatch 02/02/20 02/02/20 02/02/20 11:55 14:45 17:18 WBC RBC Hgb Hct MCHC RDW Plt Count MCH Lymph % (Auto) Lymph # Lymph # (Auto) Seg Neutrophils % Seg Neuts % (Manual) Lymphocytes % (Manual) Seg Neutrophils # Seg Neutrophils # Man Basophils % (Manual) Nucleated RBC % Lymphocytes # (Manual) Monocytes # (Manual) Basophils # (Manual) PT INR Heparin Anti-Xa Level POC ABG pO2 ABG pH 7.56 H ABG Hemoglobin 7.6 L ABG Oxyhemoglobin ABG pO2 ABG HCO3 ABG O2 Saturation ABG Base Excess ABG Potassium ABG Chloride ABG Glucose Oxyhemoglobin Sodium Potassium Chloride Carbon Dioxide BUN Creatinine Glucose POC Glucose 226 H 227 H Lactic Acid Calcium AST Phosphorus Total Protein Albumin C-Reactive Protein Arterial Blood Glucose Arterial Blood Ionized Calcium Urine WBC (Auto) Crossmatch 02/02/20 02/03/20 02/03/20 20:54 00:02 05:14 WBC 18.7 H RBC 2.45 L Hgb 7.6 L Hct 23.2 L MCHC RDW 23.5 H Plt Count MCH Lymph % (Auto) Lymph # Lymph # (Auto) Seg Neutrophils % Seg Neuts % (Manual) 94.0 H Lymphocytes % (Manual) 3.0 L Seg Neutrophils # Seg Neutrophils # Man 17.6 H Basophils % (Manual) Nucleated RBC % Lymphocytes # (Manual) 0.6 L Monocytes # (Manual) Basophils # (Manual) PT INR Heparin Anti-Xa Level POC ABG pO2 ABG pH ABG Hemoglobin ABG Oxyhemoglobin ABG pO2 ABG HCO3 ABG O2 Saturation ABG Base Excess ABG Potassium ABG Chloride ABG Glucose Oxyhemoglobin Sodium Potassium 3.2 L D Chloride Carbon Dioxide BUN Creatinine Glucose POC Glucose 204 H Lactic Acid Calcium AST Phosphorus Total Protein Albumin C-Reactive Protein Arterial Blood Glucose Arterial Blood Ionized Calcium Urine WBC (Auto) Crossmatch 02/03/20 02/03/20 02/03/20 05:14 05:14 05:20 WBC RBC Hgb Hct MCHC RDW Plt Count MCH Lymph % (Auto) Lymph # Lymph # (Auto) Seg Neutrophils % Seg Neuts % (Manual) Lymphocytes % (Manual) Seg Neutrophils # Seg Neutrophils # Man Basophils % (Manual) Nucleated RBC % Lymphocytes # (Manual) Monocytes # (Manual) Basophils # (Manual) PT INR Heparin Anti-Xa Level POC ABG pO2 ABG pH ABG Hemoglobin ABG Oxyhemoglobin ABG pO2 ABG HCO3 ABG O2 Saturation ABG Base Excess ABG Potassium ABG Chloride ABG Glucose Oxyhemoglobin Sodium Potassium 3.1 L Chloride Carbon Dioxide 33 H BUN 29 H Creatinine 0.5 L Glucose 160 H POC Glucose 146 H Lactic Acid Calcium 7.9 L AST Phosphorus 2.30 L Total Protein 4.8 L Albumin 2.4 L C-Reactive Protein Arterial Blood Glucose Arterial Blood Ionized Calcium Urine WBC (Auto) Crossmatch 02/03/20 02/03/20 02/03/20 12:35 18:14 23:26 WBC RBC Hgb Hct MCHC RDW Plt Count MCH Lymph % (Auto) Lymph # Lymph # (Auto) Seg Neutrophils % Seg Neuts % (Manual) Lymphocytes % (Manual) Seg Neutrophils # Seg Neutrophils # Man Basophils % (Manual) Nucleated RBC % Lymphocytes # (Manual) Monocytes # (Manual) Basophils # (Manual) PT INR Heparin Anti-Xa Level POC ABG pO2 ABG pH ABG Hemoglobin ABG Oxyhemoglobin ABG pO2 ABG HCO3 ABG O2 Saturation ABG Base Excess ABG Potassium ABG Chloride ABG Glucose Oxyhemoglobin Sodium Potassium Chloride Carbon Dioxide BUN Creatinine Glucose POC Glucose 219 H 248 H 173 H Lactic Acid Calcium AST Phosphorus Total Protein Albumin C-Reactive Protein Arterial Blood Glucose Arterial Blood Ionized Calcium Urine WBC (Auto) Crossmatch 02/04/20 02/04/20 02/04/20 05:34 05:36 06:51 WBC RBC Hgb Hct MCHC RDW Plt Count MCH Lymph % (Auto) Lymph # Lymph # (Auto) Seg Neutrophils % Seg Neuts % (Manual) Lymphocytes % (Manual) Seg Neutrophils # Seg Neutrophils # Man Basophils % (Manual) Nucleated RBC % Lymphocytes # (Manual) Monocytes # (Manual) Basophils # (Manual) PT INR Heparin Anti-Xa Level POC ABG pO2 ABG pH ABG Hemoglobin ABG Oxyhemoglobin ABG pO2 ABG HCO3 ABG O2 Saturation ABG Base Excess ABG Potassium ABG Chloride ABG Glucose Oxyhemoglobin Sodium Potassium Chloride Carbon Dioxide BUN Creatinine Glucose POC Glucose 56 L 64 L 127 H Lactic Acid Calcium AST Phosphorus Total Protein Albumin C-Reactive Protein Arterial Blood Glucose Arterial Blood Ionized Calcium Urine WBC (Auto) Crossmatch 02/04/20 02/04/20 02/04/20 11:57 13:42 13:53 WBC 19.2 H RBC 2.48 L Hgb 7.8 L Hct 23.5 L MCHC RDW 24.2 H Plt Count MCH Lymph % (Auto) Lymph # Lymph # (Auto) Seg Neutrophils % Seg Neuts % (Manual) 97.0 H Lymphocytes % (Manual) 2.0 L Seg Neutrophils # Seg Neutrophils # Man 18.6 H Basophils % (Manual) Nucleated RBC % Lymphocytes # (Manual) 0.4 L Monocytes # (Manual) Basophils # (Manual) PT INR Heparin Anti-Xa Level POC ABG pO2 118.2 H ABG pH 7.525 H ABG Hemoglobin 8.7 L ABG Oxyhemoglobin ABG pO2 ABG HCO3 ABG O2 Saturation ABG Base Excess ABG Potassium 2.8 L ABG Chloride ABG Glucose 185 H Oxyhemoglobin Sodium Potassium Chloride Carbon Dioxide BUN Creatinine Glucose POC Glucose 224 H Lactic Acid Calcium AST Phosphorus Total Protein Albumin C-Reactive Protein Arterial Blood Glucose 185 H Arterial Blood Ionized Calcium 4.5 L Urine WBC (Auto) Crossmatch 02/04/20 02/04/20 02/04/20 13:53 18:15 23:35 WBC RBC Hgb Hct MCHC RDW Plt Count MCH Lymph % (Auto) Lymph # Lymph # (Auto) Seg Neutrophils % Seg Neuts % (Manual) Lymphocytes % (Manual) Seg Neutrophils # Seg Neutrophils # Man Basophils % (Manual) Nucleated RBC % Lymphocytes # (Manual) Monocytes # (Manual) Basophils # (Manual) PT INR Heparin Anti-Xa Level POC ABG pO2 ABG pH ABG Hemoglobin ABG Oxyhemoglobin ABG pO2 ABG HCO3 ABG O2 Saturation ABG Base Excess ABG Potassium ABG Chloride ABG Glucose Oxyhemoglobin Sodium 147 H Potassium 2.8 L* Chloride Carbon Dioxide 38 H BUN 33 H Creatinine 0.5 L Glucose 202 H POC Glucose 215 H 197 H Lactic Acid Calcium AST Phosphorus Total Protein Albumin C-Reactive Protein Arterial Blood Glucose Arterial Blood Ionized Calcium Urine WBC (Auto) Crossmatch 02/05/20 02/05/20 02/05/20 01:03 04:00 04:00 WBC 26.7 H RBC 2.59 L Hgb 8.1 L Hct 24.6 L MCHC RDW 24.1 H Plt Count MCH Lymph % (Auto) 1.6 L Lymph # Lymph # (Auto) 0.4 L Seg Neutrophils % Seg Neuts % (Manual) Lymphocytes % (Manual) Seg Neutrophils # 25.9 H Seg Neutrophils # Man Basophils % (Manual) Nucleated RBC % Lymphocytes # (Manual) Monocytes # (Manual) Basophils # (Manual) PT INR Heparin Anti-Xa Level POC ABG pO2 ABG pH ABG Hemoglobin 7.1 L ABG Oxyhemoglobin ABG pO2 50.7 L ABG HCO3 29.6 H ABG O2 Saturation 82.7 L ABG Base Excess 4.8 H ABG Potassium ABG Chloride ABG Glucose Oxyhemoglobin 81.0 L Sodium 146 H Potassium Chloride Carbon Dioxide 32 H BUN 35 H Creatinine 0.5 L Glucose 226 H POC Glucose Lactic Acid Calcium AST Phosphorus Total Protein 5.1 L Albumin 2.2 L C-Reactive Protein Arterial Blood Glucose Arterial Blood Ionized Calcium Urine WBC (Auto) Crossmatch 02/05/20 02/05/20 02/06/20 05:32 17:56 00:19 WBC RBC Hgb Hct MCHC RDW Plt Count MCH Lymph % (Auto) Lymph # Lymph # (Auto) Seg Neutrophils % Seg Neuts % (Manual) Lymphocytes % (Manual) Seg Neutrophils # Seg Neutrophils # Man Basophils % (Manual) Nucleated RBC % Lymphocytes # (Manual) Monocytes # (Manual) Basophils # (Manual) PT INR Heparin Anti-Xa Level POC ABG pO2 ABG pH ABG Hemoglobin ABG Oxyhemoglobin ABG pO2 ABG HCO3 ABG O2 Saturation ABG Base Excess ABG Potassium ABG Chloride ABG Glucose Oxyhemoglobin Sodium Potassium Chloride Carbon Dioxide BUN Creatinine Glucose POC Glucose 239 H 175 H 309 H Lactic Acid Calcium AST Phosphorus Total Protein Albumin C-Reactive Protein Arterial Blood Glucose Arterial Blood Ionized Calcium Urine WBC (Auto) Crossmatch 02/06/20 02/06/20 02/06/20 04:26 04:27 05:11 WBC RBC Hgb Hct MCHC RDW Plt Count MCH Lymph % (Auto) Lymph # Lymph # (Auto) Seg Neutrophils % Seg Neuts % (Manual) Lymphocytes % (Manual) Seg Neutrophils # Seg Neutrophils # Man Basophils % (Manual) Nucleated RBC % Lymphocytes # (Manual) Monocytes # (Manual) Basophils # (Manual) PT INR Heparin Anti-Xa Level POC ABG pO2 175.3 H 157.2 H ABG pH 7.502 H 7.551 H ABG Hemoglobin 10.8 L 7.3 L ABG Oxyhemoglobin 98.3 H ABG pO2 ABG HCO3 ABG O2 Saturation ABG Base Excess ABG Potassium 3.3 L ABG Chloride 109.0 H ABG Glucose 148 H Oxyhemoglobin Sodium 148 H Potassium 3.0 L Chloride 107.3 H Carbon Dioxide 33 H BUN 33 H Creatinine 0.5 L Glucose 283 H POC Glucose Lactic Acid Calcium 7.9 L AST Phosphorus Total Protein 3.6 L D Albumin 1.2 L C-Reactive Protein Arterial Blood Glucose 148 H Arterial Blood Ionized Calcium Urine WBC (Auto) Crossmatch 02/06/20 02/06/20 02/06/20 05:40 08:45 11:52 WBC 16.3 H RBC 2.12 L Hgb 6.6 L Hct 20.3 L MCHC RDW 24.4 H Plt Count MCH Lymph % (Auto) Lymph # Lymph # (Auto) Seg Neutrophils % Seg Neuts % (Manual) 98.0 H Lymphocytes % (Manual) 1.0 L Seg Neutrophils # Seg Neutrophils # Man 16.0 H Basophils % (Manual) Nucleated RBC % Lymphocytes # (Manual) 0.2 L Monocytes # (Manual) Basophils # (Manual) PT INR Heparin Anti-Xa Level POC ABG pO2 ABG pH ABG Hemoglobin ABG Oxyhemoglobin ABG pO2 ABG HCO3 ABG O2 Saturation ABG Base Excess ABG Potassium ABG Chloride ABG Glucose Oxyhemoglobin Sodium Potassium Chloride Carbon Dioxide BUN Creatinine Glucose POC Glucose 347 H 132 H Lactic Acid Calcium AST Phosphorus Total Protein Albumin C-Reactive Protein Arterial Blood Glucose Arterial Blood Ionized Calcium Urine WBC (Auto) Crossmatch 02/06/20 02/07/20 02/07/20 18:26 00:08 05:41 WBC RBC Hgb Hct MCHC RDW Plt Count MCH Lymph % (Auto) Lymph # Lymph # (Auto) Seg Neutrophils % Seg Neuts % (Manual) Lymphocytes % (Manual) Seg Neutrophils # Seg Neutrophils # Man Basophils % (Manual) Nucleated RBC % Lymphocytes # (Manual) Monocytes # (Manual) Basophils # (Manual) PT INR Heparin Anti-Xa Level POC ABG pO2 ABG pH ABG Hemoglobin ABG Oxyhemoglobin ABG pO2 ABG HCO3 ABG O2 Saturation ABG Base Excess ABG Potassium ABG Chloride ABG Glucose Oxyhemoglobin Sodium Potassium Chloride Carbon Dioxide BUN Creatinine Glucose POC Glucose 114 H 111 H 164 H Lactic Acid Calcium AST Phosphorus Total Protein Albumin C-Reactive Protein Arterial Blood Glucose Arterial Blood Ionized Calcium Urine WBC (Auto) Crossmatch 02/07/20 02/07/20 02/07/20 11:49 17:56 23:27 WBC RBC Hgb Hct MCHC RDW Plt Count MCH Lymph % (Auto) Lymph # Lymph # (Auto) Seg Neutrophils % Seg Neuts % (Manual) Lymphocytes % (Manual) Seg Neutrophils # Seg Neutrophils # Man Basophils % (Manual) Nucleated RBC % Lymphocytes # (Manual) Monocytes # (Manual) Basophils # (Manual) PT INR Heparin Anti-Xa Level POC ABG pO2 ABG pH ABG Hemoglobin ABG Oxyhemoglobin ABG pO2 ABG HCO3 ABG O2 Saturation ABG Base Excess ABG Potassium ABG Chloride ABG Glucose Oxyhemoglobin Sodium Potassium Chloride Carbon Dioxide BUN Creatinine Glucose POC Glucose 146 H 140 H 164 H Lactic Acid Calcium AST Phosphorus Total Protein Albumin C-Reactive Protein Arterial Blood Glucose Arterial Blood Ionized Calcium Urine WBC (Auto) Crossmatch 02/08/20 02/08/20 02/08/20 03:55 04:46 04:46 WBC RBC 2.30 L Hgb 7.3 L Hct 22.0 L MCHC RDW 23.9 H Plt Count MCH Lymph % (Auto) 8.5 L Lymph # Lymph # (Auto) 0.8 L Seg Neutrophils % 87.6 H Seg Neuts % (Manual) Lymphocytes % (Manual) Seg Neutrophils # 8.7 H Seg Neutrophils # Man Basophils % (Manual) Nucleated RBC % Lymphocytes # (Manual) Monocytes # (Manual) Basophils # (Manual) PT INR Heparin Anti-Xa Level POC ABG pO2 112.8 H ABG pH 7.511 H ABG Hemoglobin 7.8 L ABG Oxyhemoglobin ABG pO2 ABG HCO3 ABG O2 Saturation ABG Base Excess ABG Potassium 2.9 L ABG Chloride ABG Glucose 112 H Oxyhemoglobin Sodium Potassium 3.1 L Chloride Carbon Dioxide 31 H BUN 29 H Creatinine 0.3 L Glucose 108 H POC Glucose Lactic Acid Calcium AST Phosphorus Total Protein Albumin C-Reactive Protein Arterial Blood Glucose 112 H Arterial Blood Ionized Calcium Urine WBC (Auto) Crossmatch 02/08/20 02/08/20 02/08/20 05:31 10:15 12:10 WBC RBC Hgb Hct MCHC RDW Plt Count MCH Lymph % (Auto) Lymph # Lymph # (Auto) Seg Neutrophils % Seg Neuts % (Manual) Lymphocytes % (Manual) Seg Neutrophils # Seg Neutrophils # Man Basophils % (Manual) Nucleated RBC % Lymphocytes # (Manual) Monocytes # (Manual) Basophils # (Manual) PT INR Heparin Anti-Xa Level POC ABG pO2 ABG pH ABG Hemoglobin ABG Oxyhemoglobin ABG pO2 ABG HCO3 ABG O2 Saturation ABG Base Excess ABG Potassium ABG Chloride ABG Glucose Oxyhemoglobin Sodium Potassium Chloride Carbon Dioxide BUN Creatinine Glucose POC Glucose 117 H 164 H 170 H Lactic Acid Calcium AST Phosphorus Total Protein Albumin C-Reactive Protein Arterial Blood Glucose Arterial Blood Ionized Calcium Urine WBC (Auto) Crossmatch 02/08/20 02/08/20 02/09/20 12:23 23:50 03:04 WBC RBC Hgb Hct MCHC RDW Plt Count MCH Lymph % (Auto) Lymph # Lymph # (Auto) Seg Neutrophils % Seg Neuts % (Manual) Lymphocytes % (Manual) Seg Neutrophils # Seg Neutrophils # Man Basophils % (Manual) Nucleated RBC % Lymphocytes # (Manual) Monocytes # (Manual) Basophils # (Manual) PT INR Heparin Anti-Xa Level POC ABG pO2 ABG pH 7.501 H ABG Hemoglobin 7.5 L ABG Oxyhemoglobin ABG pO2 ABG HCO3 ABG O2 Saturation ABG Base Excess ABG Potassium ABG Chloride ABG Glucose 143 H Oxyhemoglobin Sodium Potassium Chloride Carbon Dioxide BUN Creatinine Glucose POC Glucose 164 H 126 H Lactic Acid Calcium AST Phosphorus Total Protein Albumin C-Reactive Protein Arterial Blood Glucose 143 H Arterial Blood Ionized Calcium Urine WBC (Auto) Crossmatch 02/09/20 02/09/20 02/09/20 05:57 08:00 12:39 WBC RBC Hgb Hct MCHC RDW Plt Count MCH Lymph % (Auto) Lymph # Lymph # (Auto) Seg Neutrophils % Seg Neuts % (Manual) Lymphocytes % (Manual) Seg Neutrophils # Seg Neutrophils # Man Basophils % (Manual) Nucleated RBC % Lymphocytes # (Manual) Monocytes # (Manual) Basophils # (Manual) PT INR Heparin Anti-Xa Level POC ABG pO2 ABG pH ABG Hemoglobin ABG Oxyhemoglobin ABG pO2 ABG HCO3 ABG O2 Saturation ABG Base Excess ABG Potassium ABG Chloride ABG Glucose Oxyhemoglobin Sodium Potassium 3.3 L Chloride Carbon Dioxide 34 H BUN 27 H Creatinine 0.4 L Glucose 127 H POC Glucose 160 H 154 H Lactic Acid Calcium 8.2 L AST Phosphorus Total Protein Albumin C-Reactive Protein Arterial Blood Glucose Arterial Blood Ionized Calcium Urine WBC (Auto) Crossmatch 02/09/20 02/09/20 02/09/20 18:17 23:43 Unknown WBC RBC 2.15 L Hgb 7.0 L Hct 20.8 L MCHC RDW 23.3 H Plt Count MCH 33 H Lymph % (Auto) Lymph # Lymph # (Auto) Seg Neutrophils % Seg Neuts % (Manual) Lymphocytes % (Manual) Seg Neutrophils # Seg Neutrophils # Man Basophils % (Manual) Nucleated RBC % Lymphocytes # (Manual) Monocytes # (Manual) Basophils # (Manual) PT INR Heparin Anti-Xa Level POC ABG pO2 ABG pH ABG Hemoglobin ABG Oxyhemoglobin ABG pO2 ABG HCO3 ABG O2 Saturation ABG Base Excess ABG Potassium ABG Chloride ABG Glucose Oxyhemoglobin Sodium Potassium Chloride Carbon Dioxide BUN Creatinine Glucose POC Glucose 152 H 177 H Lactic Acid Calcium AST Phosphorus Total Protein Albumin C-Reactive Protein Arterial Blood Glucose Arterial Blood Ionized Calcium Urine WBC (Auto) Crossmatch 02/10/20 02/10/20 02/10/20 04:38 05:24 11:44 WBC RBC Hgb Hct MCHC RDW Plt Count MCH Lymph % (Auto) Lymph # Lymph # (Auto) Seg Neutrophils % Seg Neuts % (Manual) Lymphocytes % (Manual) Seg Neutrophils # Seg Neutrophils # Man Basophils % (Manual) Nucleated RBC % Lymphocytes # (Manual) Monocytes # (Manual) Basophils # (Manual) PT INR Heparin Anti-Xa Level POC ABG pO2 ABG pH 7.502 H ABG Hemoglobin 6.2 L ABG Oxyhemoglobin ABG pO2 136.0 H ABG HCO3 29.3 H ABG O2 Saturation ABG Base Excess 5.7 H ABG Potassium ABG Chloride ABG Glucose Oxyhemoglobin Sodium Potassium Chloride Carbon Dioxide BUN Creatinine Glucose POC Glucose 113 H 176 H Lactic Acid Calcium AST Phosphorus Total Protein Albumin C-Reactive Protein Arterial Blood Glucose Arterial Blood Ionized Calcium Urine WBC (Auto) Crossmatch 02/10/20 02/11/20 02/11/20 23:42 03:43 04:12 WBC RBC 2.12 L Hgb 6.9 L Hct 20.6 L MCHC RDW 23.4 H Plt Count MCH 33 H Lymph % (Auto) Lymph # Lymph # (Auto) Seg Neutrophils % 84.7 H Seg Neuts % (Manual) 83.0 H Lymphocytes % (Manual) 11.0 L Seg Neutrophils # Seg Neutrophils # Man Basophils % (Manual) Nucleated RBC % Lymphocytes # (Manual) 1.0 L Monocytes # (Manual) Basophils # (Manual) PT INR Heparin Anti-Xa Level POC ABG pO2 112.6 H ABG pH 7.480 H ABG Hemoglobin 7.2 L ABG Oxyhemoglobin ABG pO2 ABG HCO3 ABG O2 Saturation ABG Base Excess ABG Potassium ABG Chloride ABG Glucose 154 H Oxyhemoglobin Sodium Potassium Chloride Carbon Dioxide BUN Creatinine Glucose POC Glucose 149 H Lactic Acid Calcium AST Phosphorus Total Protein Albumin C-Reactive Protein Arterial Blood Glucose 154 H Arterial Blood Ionized Calcium Urine WBC (Auto) Crossmatch 02/11/20 02/11/20 02/11/20 04:12 05:50 08:22 WBC RBC Hgb Hct MCHC RDW Plt Count MCH Lymph % (Auto) Lymph # Lymph # (Auto) Seg Neutrophils % Seg Neuts % (Manual) Lymphocytes % (Manual) Seg Neutrophils # Seg Neutrophils # Man Basophils % (Manual) Nucleated RBC % Lymphocytes # (Manual) Monocytes # (Manual) Basophils # (Manual) PT INR Heparin Anti-Xa Level POC ABG pO2 ABG pH ABG Hemoglobin ABG Oxyhemoglobin ABG pO2 ABG HCO3 ABG O2 Saturation ABG Base Excess ABG Potassium ABG Chloride ABG Glucose Oxyhemoglobin Sodium 146 H Potassium Chloride Carbon Dioxide BUN 24 H Creatinine 0.4 L Glucose 168 H POC Glucose 190 H Lactic Acid Calcium 8.0 L AST Phosphorus Total Protein Albumin C-Reactive Protein Arterial Blood Glucose Arterial Blood Ionized Calcium Urine WBC (Auto) Crossmatch See Detail 02/11/20 02/11/20 02/11/20 11:41 17:33 23:40 WBC RBC Hgb Hct MCHC RDW Plt Count MCH Lymph % (Auto) Lymph # Lymph # (Auto) Seg Neutrophils % Seg Neuts % (Manual) Lymphocytes % (Manual) Seg Neutrophils # Seg Neutrophils # Man Basophils % (Manual) Nucleated RBC % Lymphocytes # (Manual) Monocytes # (Manual) Basophils # (Manual) PT INR Heparin Anti-Xa Level POC ABG pO2 ABG pH ABG Hemoglobin ABG Oxyhemoglobin ABG pO2 ABG HCO3 ABG O2 Saturation ABG Base Excess ABG Potassium ABG Chloride ABG Glucose Oxyhemoglobin Sodium Potassium Chloride Carbon Dioxide BUN Creatinine Glucose POC Glucose 260 H 132 H 54 L Lactic Acid Calcium AST Phosphorus Total Protein Albumin C-Reactive Protein Arterial Blood Glucose Arterial Blood Ionized Calcium Urine WBC (Auto) Crossmatch 02/12/20 02/12/20 02/12/20 05:16 06:45 11:48 WBC RBC Hgb 8.6 L Hct 25.2 L MCHC RDW Plt Count MCH Lymph % (Auto) Lymph # Lymph # (Auto) Seg Neutrophils % Seg Neuts % (Manual) Lymphocytes % (Manual) Seg Neutrophils # Seg Neutrophils # Man Basophils % (Manual) Nucleated RBC % Lymphocytes # (Manual) Monocytes # (Manual) Basophils # (Manual) PT INR Heparin Anti-Xa Level POC ABG pO2 ABG pH ABG Hemoglobin ABG Oxyhemoglobin ABG pO2 ABG HCO3 ABG O2 Saturation ABG Base Excess ABG Potassium ABG Chloride ABG Glucose Oxyhemoglobin Sodium Potassium Chloride Carbon Dioxide BUN Creatinine Glucose POC Glucose 127 H 163 H Lactic Acid Calcium AST Phosphorus Total Protein Albumin C-Reactive Protein Arterial Blood Glucose Arterial Blood Ionized Calcium Urine WBC (Auto) Crossmatch 02/12/20 02/12/20 02/13/20 17:25 23:53 04:30 WBC RBC Hgb Hct MCHC RDW Plt Count MCH Lymph % (Auto) Lymph # Lymph # (Auto) Seg Neutrophils % Seg Neuts % (Manual) Lymphocytes % (Manual) Seg Neutrophils # Seg Neutrophils # Man Basophils % (Manual) Nucleated RBC % Lymphocytes # (Manual) Monocytes # (Manual) Basophils # (Manual) PT INR Heparin Anti-Xa Level POC ABG pO2 ABG pH 7.463 H ABG Hemoglobin ABG Oxyhemoglobin ABG pO2 98.4 H ABG HCO3 27.7 H ABG O2 Saturation ABG Base Excess 3.7 H ABG Potassium ABG Chloride ABG Glucose Oxyhemoglobin Sodium Potassium Chloride Carbon Dioxide BUN Creatinine Glucose POC Glucose 152 H 140 H Lactic Acid Calcium AST Phosphorus Total Protein Albumin C-Reactive Protein Arterial Blood Glucose Arterial Blood Ionized Calcium Urine WBC (Auto) Crossmatch 02/13/20 02/13/20 02/13/20 04:45 04:45 05:19 WBC RBC 2.73 L Hgb 8.7 L Hct 25.6 L MCHC RDW 21.3 H Plt Count MCH Lymph % (Auto) 12.0 L Lymph # Lymph # (Auto) 1.0 L Seg Neutrophils % 82.5 H Seg Neuts % (Manual) Lymphocytes % (Manual) Seg Neutrophils # Seg Neutrophils # Man Basophils % (Manual) Nucleated RBC % Lymphocytes # (Manual) Monocytes # (Manual) Basophils # (Manual) PT INR Heparin Anti-Xa Level POC ABG pO2 ABG pH ABG Hemoglobin ABG Oxyhemoglobin ABG pO2 ABG HCO3 ABG O2 Saturation ABG Base Excess ABG Potassium ABG Chloride ABG Glucose Oxyhemoglobin Sodium Potassium 3.4 L Chloride Carbon Dioxide 31 H BUN 24 H Creatinine 0.3 L Glucose 122 H POC Glucose 127 H Lactic Acid Calcium 8.0 L AST Phosphorus Total Protein 4.2 L Albumin 2.0 L C-Reactive Protein Arterial Blood Glucose Arterial Blood Ionized Calcium Urine WBC (Auto) Crossmatch 02/13/20 02/14/20 02/14/20 23:08 04:26 04:26 WBC RBC 2.74 L Hgb 8.7 L Hct 25.8 L MCHC RDW 21.3 H Plt Count MCH Lymph % (Auto) 13.2 L Lymph # Lymph # (Auto) Seg Neutrophils % 81.4 H Seg Neuts % (Manual) Lymphocytes % (Manual) Seg Neutrophils # 8.4 H Seg Neutrophils # Man Basophils % (Manual) Nucleated RBC % Lymphocytes # (Manual) Monocytes # (Manual) Basophils # (Manual) PT INR Heparin Anti-Xa Level POC ABG pO2 ABG pH ABG Hemoglobin ABG Oxyhemoglobin ABG pO2 ABG HCO3 ABG O2 Saturation ABG Base Excess ABG Potassium ABG Chloride ABG Glucose Oxyhemoglobin Sodium Potassium 3.4 L Chloride 107.6 H Carbon Dioxide BUN 20 H Creatinine 0.3 L Glucose 170 H POC Glucose 148 H Lactic Acid Calcium 8.2 L AST Phosphorus Total Protein Albumin C-Reactive Protein Arterial Blood Glucose Arterial Blood Ionized Calcium Urine WBC (Auto) Crossmatch 02/14/20 02/14/20 02/14/20 05:05 12:08 17:37 WBC RBC Hgb Hct MCHC RDW Plt Count MCH Lymph % (Auto) Lymph # Lymph # (Auto) Seg Neutrophils % Seg Neuts % (Manual) Lymphocytes % (Manual) Seg Neutrophils # Seg Neutrophils # Man Basophils % (Manual) Nucleated RBC % Lymphocytes # (Manual) Monocytes # (Manual) Basophils # (Manual) PT INR Heparin Anti-Xa Level POC ABG pO2 ABG pH ABG Hemoglobin ABG Oxyhemoglobin ABG pO2 ABG HCO3 ABG O2 Saturation ABG Base Excess ABG Potassium ABG Chloride ABG Glucose Oxyhemoglobin Sodium Potassium Chloride Carbon Dioxide BUN Creatinine Glucose POC Glucose 182 H 156 H 144 H Lactic Acid Calcium AST Phosphorus Total Protein Albumin C-Reactive Protein Arterial Blood Glucose Arterial Blood Ionized Calcium Urine WBC (Auto) Crossmatch 02/14/20 02/15/20 02/15/20 23:36 05:44 12:11 WBC RBC Hgb Hct MCHC RDW Plt Count MCH Lymph % (Auto) Lymph # Lymph # (Auto) Seg Neutrophils % Seg Neuts % (Manual) Lymphocytes % (Manual) Seg Neutrophils # Seg Neutrophils # Man Basophils % (Manual) Nucleated RBC % Lymphocytes # (Manual) Monocytes # (Manual) Basophils # (Manual) PT INR Heparin Anti-Xa Level POC ABG pO2 ABG pH ABG Hemoglobin ABG Oxyhemoglobin ABG pO2 ABG HCO3 ABG O2 Saturation ABG Base Excess ABG Potassium ABG Chloride ABG Glucose Oxyhemoglobin Sodium Potassium Chloride Carbon Dioxide BUN Creatinine Glucose POC Glucose 183 H 203 H 140 H Lactic Acid Calcium AST Phosphorus Total Protein Albumin C-Reactive Protein Arterial Blood Glucose Arterial Blood Ionized Calcium Urine WBC (Auto) Crossmatch 02/15/20 02/16/20 02/16/20 17:23 00:12 05:09 WBC RBC Hgb 8.8 L Hct 26.0 L MCHC RDW Plt Count MCH Lymph % (Auto) Lymph # Lymph # (Auto) Seg Neutrophils % Seg Neuts % (Manual) Lymphocytes % (Manual) Seg Neutrophils # Seg Neutrophils # Man Basophils % (Manual) Nucleated RBC % Lymphocytes # (Manual) Monocytes # (Manual) Basophils # (Manual) PT INR Heparin Anti-Xa Level POC ABG pO2 ABG pH ABG Hemoglobin ABG Oxyhemoglobin ABG pO2 ABG HCO3 ABG O2 Saturation ABG Base Excess ABG Potassium ABG Chloride ABG Glucose Oxyhemoglobin Sodium Potassium Chloride Carbon Dioxide BUN Creatinine Glucose POC Glucose 170 H 133 H Lactic Acid Calcium AST Phosphorus Total Protein Albumin C-Reactive Protein Arterial Blood Glucose Arterial Blood Ionized Calcium Urine WBC (Auto) Crossmatch 02/16/20 02/16/20 02/16/20 05:09 05:21 12:22 WBC RBC Hgb Hct MCHC RDW Plt Count MCH Lymph % (Auto) Lymph # Lymph # (Auto) Seg Neutrophils % Seg Neuts % (Manual) Lymphocytes % (Manual) Seg Neutrophils # Seg Neutrophils # Man Basophils % (Manual) Nucleated RBC % Lymphocytes # (Manual) Monocytes # (Manual) Basophils # (Manual) PT INR Heparin Anti-Xa Level POC ABG pO2 ABG pH ABG Hemoglobin ABG Oxyhemoglobin ABG pO2 ABG HCO3 ABG O2 Saturation ABG Base Excess ABG Potassium ABG Chloride ABG Glucose Oxyhemoglobin Sodium Potassium Chloride Carbon Dioxide 31 H BUN 18 H Creatinine 0.3 L Glucose 152 H POC Glucose 160 H 138 H Lactic Acid Calcium 7.9 L AST Phosphorus Total Protein Albumin C-Reactive Protein Arterial Blood Glucose Arterial Blood Ionized Calcium Urine WBC (Auto) Crossmatch 02/16/20 02/17/20 02/17/20 16:35 00:01 05:22 WBC RBC Hgb Hct MCHC RDW Plt Count MCH Lymph % (Auto) Lymph # Lymph # (Auto) Seg Neutrophils % Seg Neuts % (Manual) Lymphocytes % (Manual) Seg Neutrophils # Seg Neutrophils # Man Basophils % (Manual) Nucleated RBC % Lymphocytes # (Manual) Monocytes # (Manual) Basophils # (Manual) PT INR Heparin Anti-Xa Level POC ABG pO2 ABG pH ABG Hemoglobin ABG Oxyhemoglobin ABG pO2 ABG HCO3 ABG O2 Saturation ABG Base Excess ABG Potassium ABG Chloride ABG Glucose Oxyhemoglobin Sodium Potassium Chloride Carbon Dioxide BUN Creatinine Glucose POC Glucose 142 H 173 H 126 H Lactic Acid Calcium AST Phosphorus Total Protein Albumin C-Reactive Protein Arterial Blood Glucose Arterial Blood Ionized Calcium Urine WBC (Auto) Crossmatch 02/17/20 02/17/20 02/18/20 11:35 18:08 00:15 WBC RBC Hgb Hct MCHC RDW Plt Count MCH Lymph % (Auto) Lymph # Lymph # (Auto) Seg Neutrophils % Seg Neuts % (Manual) Lymphocytes % (Manual) Seg Neutrophils # Seg Neutrophils # Man Basophils % (Manual) Nucleated RBC % Lymphocytes # (Manual) Monocytes # (Manual) Basophils # (Manual) PT INR Heparin Anti-Xa Level POC ABG pO2 ABG pH ABG Hemoglobin ABG Oxyhemoglobin ABG pO2 ABG HCO3 ABG O2 Saturation ABG Base Excess ABG Potassium ABG Chloride ABG Glucose Oxyhemoglobin Sodium Potassium Chloride Carbon Dioxide BUN Creatinine Glucose POC Glucose 113 H 136 H 160 H Lactic Acid Calcium AST Phosphorus Total Protein Albumin C-Reactive Protein Arterial Blood Glucose Arterial Blood Ionized Calcium Urine WBC (Auto) Crossmatch 02/18/20 02/18/20 02/18/20 04:43 04:43 05:30 WBC RBC 3.24 L Hgb Hct MCHC RDW 20.1 H Plt Count 455 H MCH Lymph % (Auto) Lymph # Lymph # (Auto) Seg Neutrophils % Seg Neuts % (Manual) Lymphocytes % (Manual) Seg Neutrophils # Seg Neutrophils # Man Basophils % (Manual) Nucleated RBC % Lymphocytes # (Manual) Monocytes # (Manual) Basophils # (Manual) PT INR Heparin Anti-Xa Level POC ABG pO2 ABG pH ABG Hemoglobin ABG Oxyhemoglobin ABG pO2 ABG HCO3 ABG O2 Saturation ABG Base Excess ABG Potassium ABG Chloride ABG Glucose Oxyhemoglobin Sodium Potassium Chloride Carbon Dioxide BUN Creatinine 0.3 L Glucose 118 H POC Glucose 139 H Lactic Acid Calcium AST Phosphorus Total Protein Albumin C-Reactive Protein Arterial Blood Glucose Arterial Blood Ionized Calcium Urine WBC (Auto) Crossmatch 02/18/20 02/18/20 02/19/20 11:55 17:51 00:00 WBC RBC Hgb Hct MCHC RDW Plt Count MCH Lymph % (Auto) Lymph # Lymph # (Auto) Seg Neutrophils % Seg Neuts % (Manual) Lymphocytes % (Manual) Seg Neutrophils # Seg Neutrophils # Man Basophils % (Manual) Nucleated RBC % Lymphocytes # (Manual) Monocytes # (Manual) Basophils # (Manual) PT INR Heparin Anti-Xa Level POC ABG pO2 ABG pH ABG Hemoglobin ABG Oxyhemoglobin ABG pO2 ABG HCO3 ABG O2 Saturation ABG Base Excess ABG Potassium ABG Chloride ABG Glucose Oxyhemoglobin Sodium Potassium Chloride Carbon Dioxide BUN Creatinine Glucose POC Glucose 165 H 139 H 141 H Lactic Acid Calcium AST Phosphorus Total Protein Albumin C-Reactive Protein Arterial Blood Glucose Arterial Blood Ionized Calcium Urine WBC (Auto) Crossmatch 02/19/20 02/19/20 02/20/20 05:45 12:20 05:36 WBC RBC Hgb Hct MCHC RDW Plt Count MCH Lymph % (Auto) Lymph # Lymph # (Auto) Seg Neutrophils % Seg Neuts % (Manual) Lymphocytes % (Manual) Seg Neutrophils # Seg Neutrophils # Man Basophils % (Manual) Nucleated RBC % Lymphocytes # (Manual) Monocytes # (Manual) Basophils # (Manual) PT INR Heparin Anti-Xa Level POC ABG pO2 ABG pH ABG Hemoglobin ABG Oxyhemoglobin ABG pO2 ABG HCO3 ABG O2 Saturation ABG Base Excess ABG Potassium ABG Chloride ABG Glucose Oxyhemoglobin Sodium Potassium Chloride Carbon Dioxide BUN Creatinine Glucose POC Glucose 169 H 161 H 159 H Lactic Acid Calcium AST Phosphorus Total Protein Albumin C-Reactive Protein Arterial Blood Glucose Arterial Blood Ionized Calcium Urine WBC (Auto) Crossmatch 02/20/20 02/20/20 02/20/20 08:24 08:24 11:54 WBC RBC 2.74 L Hgb 8.7 L Hct 26.4 L MCHC RDW 19.4 H Plt Count MCH Lymph % (Auto) Lymph # Lymph # (Auto) Seg Neutrophils % Seg Neuts % (Manual) 79.0 H Lymphocytes % (Manual) 12.0 L Seg Neutrophils # Seg Neutrophils # Man Basophils % (Manual) 2.0 H Nucleated RBC % Lymphocytes # (Manual) 1.0 L Monocytes # (Manual) Basophils # (Manual) 0.2 H PT INR Heparin Anti-Xa Level POC ABG pO2 ABG pH ABG Hemoglobin ABG Oxyhemoglobin ABG pO2 ABG HCO3 ABG O2 Saturation ABG Base Excess ABG Potassium ABG Chloride ABG Glucose Oxyhemoglobin Sodium 134 L Potassium Chloride Carbon Dioxide BUN Creatinine 0.3 L Glucose 136 H POC Glucose 172 H Lactic Acid Calcium 8.0 L AST Phosphorus Total Protein Albumin C-Reactive Protein Arterial Blood Glucose Arterial Blood Ionized Calcium Urine WBC (Auto) Crossmatch 02/20/20 02/21/20 02/21/20 23:59 05:34 12:39 WBC RBC Hgb Hct MCHC RDW Plt Count MCH Lymph % (Auto) Lymph # Lymph # (Auto) Seg Neutrophils % Seg Neuts % (Manual) Lymphocytes % (Manual) Seg Neutrophils # Seg Neutrophils # Man Basophils % (Manual) Nucleated RBC % Lymphocytes # (Manual) Monocytes # (Manual) Basophils # (Manual) PT INR Heparin Anti-Xa Level POC ABG pO2 ABG pH ABG Hemoglobin ABG Oxyhemoglobin ABG pO2 ABG HCO3 ABG O2 Saturation ABG Base Excess ABG Potassium ABG Chloride ABG Glucose Oxyhemoglobin Sodium Potassium Chloride Carbon Dioxide BUN Creatinine Glucose POC Glucose 117 H 159 H 133 H Lactic Acid Calcium AST Phosphorus Total Protein Albumin C-Reactive Protein Arterial Blood Glucose Arterial Blood Ionized Calcium Urine WBC (Auto) Crossmatch 02/22/20 02/22/20 02/22/20 06:14 11:40 17:57 WBC RBC Hgb Hct MCHC RDW Plt Count MCH Lymph % (Auto) Lymph # Lymph # (Auto) Seg Neutrophils % Seg Neuts % (Manual) Lymphocytes % (Manual) Seg Neutrophils # Seg Neutrophils # Man Basophils % (Manual) Nucleated RBC % Lymphocytes # (Manual) Monocytes # (Manual) Basophils # (Manual) PT INR Heparin Anti-Xa Level POC ABG pO2 ABG pH ABG Hemoglobin ABG Oxyhemoglobin ABG pO2 ABG HCO3 ABG O2 Saturation ABG Base Excess ABG Potassium ABG Chloride ABG Glucose Oxyhemoglobin Sodium Potassium Chloride Carbon Dioxide BUN Creatinine Glucose POC Glucose 139 H 147 H 131 H Lactic Acid Calcium AST Phosphorus Total Protein Albumin C-Reactive Protein Arterial Blood Glucose Arterial Blood Ionized Calcium Urine WBC (Auto) Crossmatch 02/22/20 02/23/20 23:50 03:16 WBC RBC Hgb Hct MCHC RDW Plt Count MCH Lymph % (Auto) Lymph # Lymph # (Auto) Seg Neutrophils % Seg Neuts % (Manual) Lymphocytes % (Manual) Seg Neutrophils # Seg Neutrophils # Man Basophils % (Manual) Nucleated RBC % Lymphocytes # (Manual) Monocytes # (Manual) Basophils # (Manual) PT INR Heparin Anti-Xa Level POC ABG pO2 ABG pH ABG Hemoglobin ABG Oxyhemoglobin ABG pO2 ABG HCO3 ABG O2 Saturation ABG Base Excess ABG Potassium ABG Chloride ABG Glucose Oxyhemoglobin Sodium Potassium Chloride Carbon Dioxide BUN Creatinine Glucose POC Glucose 137 H 115 H Lactic Acid Calcium AST Phosphorus Total Protein Albumin C-Reactive Protein Arterial Blood Glucose Arterial Blood Ionized Calcium Urine WBC (Auto) Crossmatch Allied health notes reviewed: nursing
--- NOTE | 2020-02-23 08:53 | Progress Note ---
Assessment and Plan Assessment and plan: 69-year-old -[place] female with known history of dementia, and according to the does not talk much due to this. Diabetes mellitus and pulmonary embolism was admitted through the emergency room from the [facility] on 01/07 for decreased responsiveness, lethargy and hypotension. Patient had sepsis UTI and sacral decubitus ulcer evaluated by ID, medications optimized, patient went into acute hypoxic respiratory failure requiring intubation admitted to ICU, extubated, patient sustained cardiac arrest x2, Requiring reintubation, became vent dependent, surgery evaluated underwent trach and PEG, currently patient is awaiting LTAC/SNF placement Patient remains vent dependent, with severe metabolic and hypoxic encephalopathy. Patient has unstageable sacral decubitus ulcer status post debridement Sepsis on long-term antibiotics total 6 weeks per ID, stop date 02/27/2020 --Acute hypoxic respiratory failure; vent dependent s/p tracheostomy,02/13/2020 per surgery, trach care, ventilatory support status post extubation 02/02/2020 but had to be reintubated on 02/04 We will continue current care, pulmonary critical following --Dysphagia s/p PEG placement; continue PEG feeds per protocol --Shock/ septic shock; s/p Levophed,monitor off Levophed --s/p PEA arrest night of 01/28/2020 and 02/05/2020 s/p CPR per ACLS protocol --Anoxic/hypoxic brain injury[status post PEA cardiac arrest]; supportive care Poor prognosis, family aware --Unstageable sacral decubitus ulcer, infected/POA s/p wound debridement on 01/15. Continue wound vac , Proteus bacteremia On zosyn 4.5 g IV q8h total 6 weeks per ID stop date 02/27/2020 --Sepsis /Proteus bacteremia: Due to sacral decubitus Long-term Zosyn per ID stop date 02/27/2020[total 6 weeks] --Hypokalemia /Hypernatremia; resolved --Anemia ; received 1 unit PRBC, now Hb 8.8 -- Diabetes mellitus; Blood sugars well controlled, A1c 5.3 Accu-Chek,SSC, long-acting insulin as needed Tube feeding diet -- Hydropneumothorax, not POA Patient developed hydropneumothorax on 01/15. Surgery evaluated s/p chest tube placed on 01/15. Improved, s/p chest tube removed 01/22, extubated 02/02/2020 Reintubated 02/05/2020 , tracheostomy 02/13/2020 -- large Left pleural effusion 01/25 01/27; s/p bronchoscopy and Therapeutic suctioning of the lungs done by explosive ordnance disposal specialist -- UTI (urinary tract infection)Completed antibiotics --h/o Bilateral pulmonary embolism 7 months ago Repeat CTA chest and LE doppler showed no acute PE or DVT, eliquis stopped -- Dementia: Continue donepezil --Severe protein-calorie malnutrition PEG placed 01/13. PEG feeds per protocol --DVT prophylaxis; SCDs --Disposition; possible LTAC placement Closely monitor the patient and adjust management as needed Plan of care reviewed with the patient and her nurse The high probability of a clinically significant, sudden or life threatening deterioration of the [Respiratory, NUISANCE WILDLIFE TRAPPER, CVs] system(s) required my full and direct attention, intervention and personal management. The aggregate critical care time was [31] minutes. This time is in addition to time spent performing reported procedures but includes the following: [x] Data Review and interpretation [x] Patient assessment and monitoring of vital signs [x] Documentation [x] Medication orders and management . Patient currently with PSV/CPAP FiO2 50%, PEEP of 6 and pressure support of 10. Continue PSV trials as tolerated and wean per pulmonary. Recall ID consultation. 02/08/2020. Patient with Proteus bacteremia likely from sacral decubitus. Continue Zosyn 4.5 g IV every 8 hours until stop date of 02/26. Patient still on mechanical ventilation AC mode rate 12, tidal volume 350, FiO2 30% and PEEP of 6. Poor prognosis. Consider hospice. Continue scopolamine for secretion control. Continue pressors to maintain MAP > 65; currently off. 02/09/2020. Continue Zosyn 4.5 g IV every 8 hours for Proteus bacteremia with end date of 02/27/2020. Continue wound care/wound VAC per surgery. Patient still on mechanical ventilation AC mode rate 12, tidal volume 350, FiO2 30% and PEEP of 6. Poor prognosis. Consider hospice. Continue scopolamine for secretion control. Currently off pressors. 02/09; evaluated by surgery, planning tracheostomy pending COVID test 02/10; possible tracheostomy today pending COVID test, surgery following 02/11; patient n.p.o. from midnight, possible tracheostomy tomorrow Received 1 unit of PRBC, Hb improved to 8.6 02/12; scheduled for tracheostomy today 02/13; trach care, bilateral upper extremity L edema and swelling, check venous Doppler 02/14; right upper extremity swelling edema, DC the line, elevate the limb 02/15;RUE venous Doppler no DVT, superficial thrombophlebitis, elevate the limb and supportive care 02/16; pending LTAC/SNF placement 02/17; pending LTAC/SNF placement 02/18; trach and PEG, on ventilatory support, awaiting LTAC placement. Sacral decubitus long-term a antibiotics Zosyn stop date 02/27/202002/19: Overnight patient experienced some hypotensive episodes. Was re suscitated with IV fluids. Doppler done over the course of the week showed a superficial right cephalic vein thrombosis. Will obtain intermittent labs this morning my understanding is that we are awaiting placement to LTAC. Patient is status post trach and PEG. 02/20; no significant change overnight, pending LTAC placement. 02/21; patient is still on Zosyn, blood pressure is within normal limit. Pending LTAC placement 02/22; patient's BP is okay. Patient is tachycardic. Disposition; Awaiting LTAC/SNF placement History Interval history: Patient was seen and evaluated this morning Patient has trach and on mechanical ventilator Hospitalist Physical - Physical exam Narrative exam: Patient has a trach and on mechanical ventilator The patient appeared well nourished and normally developed. Vital signs as documented. Head exam is unremarkable. No scleral icterus . Neck is without jugular venous distension, thyromegaly, or carotid bruits. Lungs are clear to auscultation. Cardiac exam reveals regular rate and Rhythm. Abdominal exam reveals normal bowel sounds, nontender, no organomegaly. Extremities are nonedematous and both femoral and pedal pulses are normal. NUISANCE WILDLIFE TRAPPER: Patient is aphasic and noncommunicative. Does not follow commands. Extrem ities are contracted. - Constitutional Vitals: Temp Pulse Resp BP Pulse Ox 98.3 F 110 H 28 H 129/90 100 02/23/20 04:00 02/23/20 08:06 02/23/20 08:06 02/23/20 08:06 02/23/20 08:06 General appearance: Present: no acute distress, well-nourished, other (Tracheostomy on vent) Results - Labs CBC & Chem 7: 02/20/20 08:24 02/20/20 08:24 Labs: Laboratory Last Values WBC 8.2 K/mm3 (4.5-11.0) 02/20/20 08:24 RBC 2.74 M/mm3 (3.65-5.03) L 02/20/20 08:24 Hgb 8.7 gm/dl (10.1-14.3) L 02/20/20 08:24 Hct 26.4 % (30.3-42.9) L 02/20/20 08:24 MCV 96 fl (79-97) 02/20/20 08:24 MCH 32 pg (28-32) 02/20/20 08:24 MCHC 33 % (30-34) 02/20/20 08:24 RDW 19.4 % (13.2-15.2) H 02/20/20 08:24 Plt Count 356 K/mm3 (140-440) 02/20/20 08:24 Lymph % (Auto) 13.2 % (13.4-35.0) L 02/14/20 04:26 [place] % (Auto) 3.6 % (0.0-7.3) 02/14/20 04:26 Eos % (Auto) 1.0 % (0.0-4.3) 02/14/20 04:26 Baso % (Auto) 0.8 % (0.0-1.8) 02/14/20 04:26 Lymph # (Auto) 1.4 K/mm3 (1.2-5.4) 02/14/20 04:26 [place] # (Auto) 0.4 K/mm3 (0.0-0.8) 02/14/20 04:26 Eos # (Auto) 0.1 K/mm3 (0.0-0.4) 02/14/20 04:26 Baso # (Auto) 0.1 K/mm3 (0.0-0.1) 02/14/20 04:26 Add Manual Diff Complete 02/20/20 08:24 Total Counted 100 02/20/20 08:24 Seg Neutrophils % 81.4 % (40.0-70.0) H 02/14/20 04:26 Seg Neuts % (Manual) 79.0 % (40.0-70.0) H 02/20/20 08:24 Band Neutrophils % 0 % 02/20/20 08:24 Lymphocytes % (Manual) 12.0 % (13.4-35.0) L 02/20/20 08:24 Reactive Lymphs % (Man) 0 % 02/20/20 08:24 Monocytes % (Manual) 4.0 % (0.0-7.3) 02/20/20 08:24 Eosinophils % (Manual) 3.0 % (0.0-4.3) 02/20/20 08:24 Basophils % (Manual) 2.0 % (0.0-1.8) H 02/20/20 08:24 Metamyelocytes % 0 % 02/20/20 08:24 Myelocytes % 0 % 02/20/20 08:24 Promyelocytes % 0 % 02/20/20 08:24 Blast Cells % 0 % 02/20/20 08:24 Nucleated RBC % Not Reportable 02/20/20 08:24 Seg Neutrophils # 8.4 K/mm3 (1.8-7.7) H 02/14/20 04:26 Seg Neutrophils # Man 6.5 K/mm3 (1.8-7.7) 02/20/20 08:24 Band Neutrophils # 0.0 K/mm3 02/20/20 08:24 Lymphocytes # (Manual) 1.0 K/mm3 (1.2-5.4) L 02/20/20 08:24 Abs React Lymphs (Man) 0.0 K/mm3 02/20/20 08:24 Monocytes # (Manual) 0.3 K/mm3 (0.0-0.8) 02/20/20 08:24 Eosinophils # (Manual) 0.2 K/mm3 (0.0-0.4) 02/20/20 08:24 Basophils # (Manual) 0.2 K/mm3 (0.0-0.1) H 02/20/20 08:24 Metamyelocytes # 0.0 K/mm3 02/20/20 08:24 Myelocytes # 0.0 K/mm3 02/20/20 08:24 Promyelocytes # 0.0 K/mm3 02/20/20 08:24 Blast Cells # 0.0 K/mm3 02/20/20 08:24 WBC Morphology Not Reportable 02/20/20 08:24 Hypersegmented Neuts Not Reportable 02/20/20 08:24 Hyposegmented Neuts Not Reportable 02/20/20 08:24 Hypogranular Neuts Not Reportable 02/20/20 08:24 Smudge Cells Not Reportable 02/20/20 08:24 Toxic Granulation Not Reportable 02/20/20 08:24 Toxic Vacuolation Not Reportable 02/20/20 08:24 Dohle Bodies Not Reportable 02/20/20 08:24 Pelger-Huet Anomaly Not Reportable 02/20/20 08:24 [place]ata Rods Not Reportable 02/20/20 08:24 Platelet Estimate Consistent w auto 02/20/20 08:24 Clumped Platelets Rare 02/20/20 08:24 Plt Clumps, EDTA Not Reportable 02/20/20 08:24 Large Platelets Few 02/20/20 08:24 Giant Platelets Not Reportable 02/20/20 08:24 Platelet Satelliting Not Reportable 02/20/20 08:24 Plt Morphology Comment Not Reportable 02/20/20 08:24 RBC Morphology Not Reportable 02/20/20 08:24 Dimorphic RBCs Not Reportable 02/20/20 08:24 Polychromasia Not Reportable 02/20/20 08:24 Hypochromasia Not Reportable 02/20/20 08:24 Poikilocytosis Not Reportable 02/20/20 08:24 Anisocytosis 1+ 02/20/20 08:24 Microcytosis Not Reportable 02/20/20 08:24 Macrocytosis 1+ 02/20/20 08:24 Spherocytes Not Reportable 02/20/20 08:24 Pappenheimer Bodies Not Reportable 02/20/20 08:24 Sickle Cells Not Reportable 02/20/20 08:24 Target Cells Not Reportable 02/20/20 08:24 Tear Drop Cells Not Reportable 02/20/20 08:24 Ovalocytes Not Reportable 02/20/20 08:24 Helmet Cells Not Reportable 02/20/20 08:24 Lombardi-Hartly Bodies Not Reportable 02/20/20 08:24 Martin Rings Not Reportable 02/20/20 08:24 Douglas Cells Not Reportable 02/20/20 08:24 Bite Cells Not Reportable 02/20/20 08:24 Crenated Cell Not Reportable 02/20/20 08:24 Elliptocytes Not Reportable 02/20/20 08:24 Acanthocytes (Spur) Not Reportable 02/20/20 08:24 Rouleaux Not Reportable 02/20/20 08:24 Hemoglobin C Crystals Not Reportable 02/20/20 08:24 Schistocytes Not Reportable 02/20/20 08:24 Malaria parasites Not Reportable 02/20/20 08:24 Gideon Bodies Not Reportable 02/20/20 08:24 Hem Pathologist Commnt No 02/20/20 08:24 APTT 33.9 Sec. (24.2-36.6) 01/26/20 16:30 PT 14.4 Sec. (12.2-14.9) 02/02/20 05:25 INR 1.11 (0.87-1.13) 02/02/20 05:25 Heparin Anti-Xa Level 0.74 U.I./ml (0.3-0.7) H 01/28/20 08:50 ABG pH 7.463 pH Units (7.350-7.450) H 02/13/20 04:30 POC ABG pCO2 38.5 mmHg (32.0-48.0) 02/11/20 03:43 ABG pCO2 39.6 mm Hg 02/13/20 04:30 POC ABG pO2 112.6 mmHg (83-108) H 02/11/20 03:43 ABG pO2 98.4 mm Hg (80.0-90.0) H 02/13/20 04:30 POC ABG HCO3 28 02/11/20 03:43 ABG HCO3 27.7 mmol/L (20.0-26.0) H 02/13/20 04:30 ABG O2 Saturation 97.7 % (95.0-99.0) 02/13/20 04:30 ABG O2 Content 19.3 (0.0-44) 02/13/20 04:30 POC ABG Base Excess 4.2 02/11/20 03:43 ABG Base Excess 3.7 mmol/L (-2.0-3.0) H 02/13/20 04:30 ABG Hemoglobin 14.4 gm/dl (12.0-16.0) 02/13/20 04:30 ABG Oxyhemoglobin 96.7 (94-98) 02/09/20 03:04 ABG Carboxyhemoglobin 1.8 % (0.0-5.0) 02/13/20 04:30 ABG Methemoglobin 0.6 % (0.0-1.5) 02/13/20 04:30 ABG Sodium 138.5 mmol/L (136.0-145.0) 02/11/20 03:43 ABG Potassium 3.4 mmol/L (3.40-4.50) 02/11/20 03:43 ABG Chloride 107.0 mmol/L (98-107) 02/11/20 03:43 ABG Glucose 154 mg/dL (65-95) H 02/11/20 03:43 Oxyhemoglobin 95.3 % (95.0-99.0) 02/13/20 04:30 Carboxyhemoglobin TNR 02/08/20 03:55 FiO2 25 % 02/13/20 04:30 Sodium 134 mmol/L (137-145) L 02/20/20 08:24 Potassium 4.1 mmol/L (3.6-5.0) 02/20/20 08:24 Chloride 104.1 mmol/L (98-107) 02/20/20 08:24 Carbon Dioxide 23 mmol/L (22-30) 02/20/20 08:24 Anion Gap 11 mmol/L 02/20/20 08:24 BUN 17 mg/dL (7-17) 02/20/20 08:24 Creatinine 0.3 mg/dL (0.6-1.2) L 02/20/20 08:24 Estimated GFR > 60 ml/min 02/20/20 08:24 BUN/Creatinine Ratio 57 % 02/20/20 08:24 Glucose 136 mg/dL (65-100) H 02/20/20 08:24 POC Glucose 115 (70-105) H 02/23/20 03:16 Hemoglobin A1c 5.3 % (4-6) 01/11/20 00:45 Lactic Acid 1.30 mmol/L (0.7-2.0) 01/26/20 23:27 Calcium 8.0 mg/dL (8.4-10.2) L 02/20/20 08:24 Phosphorus 2.30 mg/dL (2.5-4.5) L 02/03/20 05:14 Magnesium 2.00 mg/dL (1.7-2.3) 02/16/20 05:09 Total Bilirubin 0.20 mg/dL (0.1-1.2) 02/13/20 04:45 AST 29 units/L (5-40) 02/13/20 04:45 ALT 38 units/L (7-56) 02/13/20 04:45 Alkaline Phosphatase 109 units/L (35-129) 02/13/20 04:45 C-Reactive Protein 14.80 mg/dL (0.00-1.30) H 01/29/20 Unknown Total Protein 4.2 g/dL (6.3-8.2) L 02/13/20 04:45 Albumin 2.0 g/dL (3.9-5) L 02/13/20 04:45 Albumin/Globulin Ratio 0.9 % 02/13/20 04:45 TSH 2.440 mlU/mL (0.270-4.200) 01/10/20 10:10 Procalcitonin 1.86 ng/mL (<0.15) 01/29/20 Unknown Arterial Blood Glucose 154 mg/dL (65-95) H 02/11/20 03:43 Arterial Blood Ionized Calcium 4.6 mg/dL (4.6-5.3) 02/11/20 03:43 Urine Color [place] (Yellow) 01/08/20 Unknown Urine Turbidity Cloudy (Clear) 01/08/20 Unknown Urine pH 5.0 (5.0-7.0) 01/08/20 Unknown Ur Specific [place] 1.018 (1.003-1.030) 01/08/20 Unknown Urine Protein 30 mg/dl mg/dL (Negative) 01/08/20 Unknown Urine Glucose (UA) Neg mg/dL (Negative) 01/08/20 Unknown Urine Ketones Neg mg/dL (Negative) 01/08/20 Unknown Urine Blood Mod (Negative) 01/08/20 Unknown Urine Nitrite Neg (Negative) 01/08/20 Unknown Urine Bilirubin Neg (Negative) 01/08/20 Unknown Urine Urobilinogen < 2.0 mg/dL (<2.0) 01/08/20 Unknown Ur Leukocyte Esterase Sm (Negative) 01/08/20 Unknown Urine WBC (Auto) 11.0 /HPF (0.0-6.0) H 01/08/20 Unknown Urine RBC (Auto) 7.0 /HPF (0.0-6.0) 01/08/20 Unknown U Epithel Cells (Auto) < 1.0 /HPF (0-13.0) 01/08/20 Unknown Urine Bacteria (Auto) 1+ /HPF (Negative) 01/08/20 Unknown Urine Mucus 2+ /HPF 01/08/20 Unknown Urine Yeast (Budding) 1+ /HPF 01/08/20 Unknown Vancomycin Trough 7.9 ug/mL (5.0-20.0) 01/17/20 16:04 Coronavirus (PCR) Negative (Negative) 02/10/20 10:06 Blood Type A POSITIVE 02/11/20 08:22 Antibody Screen Negative 02/11/20 08:22 Crossmatch See Detail 02/11/20 08:22 Mejía/IV: Voiding Method Indwelling Catheter IV Catheter Type [Left Wrist] INT / Saline Lock IV Catheter Type [Left Upper PICC Line arm] IV Catheter Type [Right Upper Mid-line arm] IV Catheter Type [Right Peripheral IV Forearm] Active Medications - Current Medications Current Medications: Generic Name Dose Route Start Last Admin Trade Name Freq PRN Reason Stop Dose Admin Acetaminophen 650 mg 01/08/20 23:14 01/18/20 06:03 Tylenol PO 650 mg Q4H PRN Administration Pain MILD(1-3)/Fever >100.5/GARCIA Lipase/Protease/Amylase 1 each 01/17/20 08:[address] 10,500 Unit FEEDTUBE PRN PRN For Clogged Feeding Tube Atorvastatin Calcium 10 mg 01/09/20 22:00 02/22/20 21:38 Atorvastatin PO 10 mg QHS BRO Administration Dextrose 0 ml 01/08/20 23:14 02/10/20 17:18 D50w (25gm) Syringe IV 10 ml Q30MIN PRN Administration Hypoglycemia Protocol Donepezil HCl 10 mg 01/09/20 22:00 02/22/20 21:38 Aricept PO 10 mg QHS BRO Administration Famotidine 20 mg 01/27/20 10:00 02/22/20 21:39 Pepcid PO 20 mg BID BRO Administration Ferrous Sulfate 308 mg 02/09/20 12:00 02/22/20 09:41 Ferrous Sulfate FEEDTUBE 308 mg DAILY BRO Administration Fluticasone Propionate 100 mcg 01/25/20 20:00 01/26/20 06:09 Flonase NS 100 mcg QDAY PRN Administration Nasal Congestion Glycopyrrolate 2 mg 02/18/20 22:00 02/22/20 21:38 Glycopyrrolate PO 2 mg BID BRO Administration Heparin Sodium (Porcine) 5,000 unit 01/28/20 10:00 02/22/20 21:38 Heparin SUB-Q 5,000 unit Q12HR BRO Administration Hydrophilic Ointment 1 applic 01/28/20 10:57 Vaseline Lip Therapy TP Q2HR PRN Dry Lips Piperacillin Sod/Tazobactam Sod 4.5 gm in 100 mls @ 200 mls/hr 01/19/20 14:00 02/23/20 05:20 Zosyn/Ns 4.5gm/100ml IV 02/27/20 22:29 200 mls/hr Q8HR BRO Administration Protocol Norepinephrine 4 mg in 250 mls @ 7.5 mls/hr 02/19/20 22:00 Levophed Drip 4 Mg/Ns 250 Ml IV TITR BRO Protocol 2 MCG/MIN Insulin Human Regular 0 unit 01/27/20 12:00 02/23/20 05:20 Humulin R SUB-Q Not Given Q6HR [facility] Protocol Loperamide HCl 2 mg 02/14/20 12:00 02/14/20 16:48 Loperamide PO 2 mg Q2H PRN Administration Diarrhea Magnesium Hydroxide 30 ml 01/08/20 23:14 Milk Of Magnesia PO Q4H PRN Constipation Metoprolol Tartrate 12.5 mg 02/18/20 14:00 02/22/20 21:38 Metoprolol PO 12.5 mg BID BRO Administration Mirtazapine 15 mg 01/09/20 22:00 02/22/20 21:38 Remeron PO 15 mg QHS BRO Administration Multi-Ingred Cream/Lotion/Oil/Oint 1 applic 01/28/20 10:57 Artificial Tears Ophth Oint OU Q4HR PRN Dry Eye(s) Multivitamins 5 ml 02/09/20 12:00 02/22/20 09:40 Centrum Liq PO 5 ml QDAY BRO Administration Ondansetron HCl 4 mg 01/08/20 23:14 Zofran IV Q8H PRN Nausea And Vomiting Oxycodone/Acetaminophen 1 tab 02/17/20 13:28 Percocet 5/325 PO Q4H PRN Pain, Moderate (4-6) Scopolamine 1 each 02/05/20 10:00 02/20/20 11:32 Transderm-Scop TD 1 each Q3D BRO Administration Simple Syrup 15 ml 01/17/20 08:37 Simple Syrup FEEDTUBE PRN PRN Hypoglycemia Simple Syrup 30 ml 01/17/20 08:37 02/11/20 23:43 Simple Syrup FEEDTUBE 30 ml PRN PRN Administration Hypoglycemia Sodium Bicarbonate 325 mg 01/17/20 08:37 Sodium Bicarbonate FEEDTUBE PRN PRN For Clogged Feeding Tube Sodium Chloride 10 ml 01/09/20 10:00 02/22/20 21:39 Sodium Chloride Flush Syringe 10 Ml IV 10 ml BID BRO Administration Sodium Chloride 10 ml 01/08/20 23:14 Sodium Chloride Flush Syringe 10 Ml IV PRN PRN LINE FLUSH Trazodone HCl 25 mg 01/09/20 22:00 02/22/20 21:39 Desyrel PO 25 mg QHS BRO Administration Nutrition/Malnutrition Assess - Dietary Evaluation Nutrition/Malnutrition Findings: Nutrition Notes Start: 01/09/20 12:13 Freq: Status: Active Protocol: Document 02/20/20 10:54 AL (Rec: 02/20/20 10:58 AL [email or web address]) Co-Sign 02/20/20 10:54 Nutrition Notes Initial or Follow up Reassessment Current Diagnosis Decubitus(Pressure Ulcer), Diabetes,Sepsis Other Pertinent Diagnosis UTI, dementia, PE, Sacral wound Current Diet Vital AF 1.2 at 50ml/hr Labs/Tests Reviewed Pertinent Medications Reviewed Height 5 ft 2 in Weight 71 kg [place] Body Weight (kg) 50.00 BMI 28.6 Weight change and time frame Wt change noted. Pt has edema. Weight Status Overweight Subjective/Other Information RD FU for stable TF. TF currently running at 50 ml/hr (goal rate). 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 Yes Is Patient Ambulatory and/or Out of Bed No REE-([place]-St. Jeor-confined to bed) 1425.768 Kcal/Kg value to use for calculation 22 Approximate Energy Requirements Using 1562 kcal/Kg Calculation Used for Recommendations Kcal/kg Additional Notes Pro: 81-98 g (1.25-1.5 g/kg) Fluid: 1ml/kcal Nutrition Intervention Change Diet Order: Continue Nutrition Support: Vital AF 1.2 at 50ml/hr Flush 250ml q4h per MD Kcal 1,440 Protein (gm) 90 Fluid (mL) 973 Goal #1 Meet at least 80% of kcal and protein needs via TF Goal #2 TF tolerance Goal #3 Wound healing Anticipated Discharge Needs: Continue TF Follow-Up By: 02/24/20 Additional Comments F/U for stable TF
[2020-02-23] MEDS: SCOPOLAMINE TRANSDERMAL PATCH 72 HR TD SCH (10:20)
[2020-02-23] MEDS: HEPARIN 5,000 UNIT/1 ML VIAL SUB-Q SCH ×2 (10:21→21:19)
[2020-02-23] MEDS: METOPROLOL TARTRATE 25 MG TAB PO SCH (10:22)
[2020-02-23] MEDS: GLYCOPYRROLATE 2 MG TAB PO SCH ×2 (10:22→21:20)
[2020-02-23] MEDS: FAMOTIDINE 20 MG TAB PO SCH ×2 (10:22→21:20)
[2020-02-23] MEDS: MULTIVITAMINS 5 ML ORAL LIQUID PO SCH (10:23)
[2020-02-23] MEDS: FERROUS SULFATE 308 MG (62mg Elemental Iron) / 7 ML ELIXIR FEEDTUBE SCH (10:23)
[2020-02-23] MEDS ORDERED: METOPROLOL TARTRATE 25 MG TAB PO SCH (13:00)
[2020-02-23] MEDS: traZODone 50 MG TAB PO SCH (21:20)
[2020-02-23] MEDS: DONEPEZIL 10 MG TAB PO SCH (21:20)
[2020-02-23] MEDS: MIRTAZAPINE 15 MG TAB PO SCH (21:20)
[2020-02-23] MEDS: ACETAMINOPHEN 325 MG TAB PO PRN (21:29)
[2020-02-24] MEDS: PIPERACIL/TAZOBACTA 4.5/NS 100 4.5 GM/100 ML VIAL IV SCH ×3 (05:34→21:27)
[2020-02-24] MEDS: INSULIN REGULAR, HUMAN 100 UNIT/ML 3ML VIAL SUB-Q SCH ×3 (06:03→20:41)
[2020-02-24 06:38] LABS: Mean Corpuscular HGB Conc 35 % (30-34); Mean Corpuscular Volume 95 fl (79-97); Platelet Count 160 K/mm3 (140-440); Red Blood Count 0.97 M/mm3 (3.65-5.03); Red Cell Distribution Width 18.6 % (13.2-15.2)
[2020-02-24 06:49] LABS: Blood Urea Nitrogen 18 mg/dL (7-17); Calcium 6.6 mg/dL (8.4-10.2); Hemolysis Index 17
[2020-02-24 06:52] LABS: Hematocrit 9.2 % (30.3-42.9); Hemoglobin 3.2 gm/dl (10.1-14.3)
[2020-02-24 06:53] LABS: BUN/Creatinine Ratio 60
[2020-02-24 07:18] LABS: Hematocrit 27.3 % (30.3-42.9); Hemoglobin 9.1 gm/dl (10.1-14.3); Mean Corpuscular HGB Conc 33 % (30-34); Mean Corpuscular Volume 96 fl (79-97); Platelet Count 538 K/mm3 (140-440); Red Blood Count 2.85 M/mm3 (3.65-5.03); Red Cell Distribution Width 18.8 % (13.2-15.2)
[2020-02-24] MEDS: METOPROLOL TARTRATE 25 MG TAB PO SCH ×2 (10:37→21:27)
[2020-02-24] MEDS: MULTIVITAMINS 5 ML ORAL LIQUID PO SCH (10:38)
[2020-02-24] MEDS: HEPARIN 5,000 UNIT/1 ML VIAL SUB-Q SCH ×2 (10:38→21:27)
[2020-02-24] MEDS: FERROUS SULFATE 308 MG (62mg Elemental Iron) / 7 ML ELIXIR FEEDTUBE SCH (10:39)
[2020-02-24] MEDS: FAMOTIDINE 20 MG TAB PO SCH ×2 (10:39→21:28)
[2020-02-24] MEDS: GLYCOPYRROLATE 2 MG TAB PO SCH ×2 (10:39→21:28)
--- NOTE | 2020-02-24 12:06 | Progress Note ---
Assessment and Plan Severe sepsis with shock. Left lung atelectasis. Left pleural effusion. Acute hypoxemic respiratory failure. Acute possibly on chronic encephalopathy. History of diabetes. Urinary tract infection. History of pulmonary embolism, diagnosed several months ago. Sacral decubitus ulcer. Dementia. Anemia that is normocytic. - repeat CXR in am - resumed PSV trial but reduced P-supp to 8 cm H2O - get phosphorus level and address re: optimization of resp muscles - continue care as below otherwise; - continue daily SAT's and SBT's as tolerated - continue scopolamine for secretions - continue to rest on AC qhs for now - complete AB's per ID rec's (Zosyn) - continue to wean supplemental oxygen for target O2 sat's > 92% acutely - VAP bundle addressed - continue lung protective strategies - continue bronchodilators with routine trach care and pulmonary hygiene per RT - wean per pulmonary driven protocols otherwise - continue accuchecks with glycemic control per SSI (While critically ill target blood glucose of 140-180 mg/dL; avoid hypoglycemia) - sedation prn for target RASS 0 to -1 - avoid nephrotoxins, renally dose all medications - continue to avoid benzodiazepine's, reduce the possibility of delirium - prn analgesia per CPOT score - Maintenance of sleep-wake cycle, avoid delirium - continue enteral nutritional support at goal rate as tolerated - G.I. & VTE prophylaxis with famotidine and heparin - PT/OT/ROM exercises - continue mobility protocols for pressure ulcer prophylaxis - Monitor hemodynamics closely - continue other care per attending / other consultants - discharge planning ongoing concurrently .... Re-evaluate in am & prn CONDITION: CRITICAL PROGNOSIS: GUARDED CODE STATUS: FULL CODE The high probability of a clinically significant, sudden or life-threatening deterioration of the [respiratory, cardiovascular & neurologic] system(s) required my full and direct attention, intervention and personal management. The aggregate critical care time was [36] minutes without overlap. Time includes spent on; [x] Data Review and interpretation [x] Patient assessment and monitoring of vital signs [x] Documentation [x] Medication orders and management Subjective Date of service: 02/24/20 Principal diagnosis: Septic Shock; S/P Cardiac Arrest; Ac. hypoxemic resp failure; UTI Interval history: Patient is seen today for: Severe sepsis with shock; S/P Cardiac Arrest; L. lung atelectasis / L. pleural effusion; Acute hypoxemic respiratory failure; Acute possibly on chronic encephalopathy; DM II; UTI; VTE Seen and examined at bedside; 24hour events reviewed; nursing and respiratory care staff consulted; no adverse overnight events reported to me; resting peacefully in bed; AMS is persistent; still weaning tenuously; tolerated 1.5 hours today but failed with prolonged apnea's; also desaturated during wound care; no N/V/F/C Objective Vital Signs - 12hr 02/24/20 02/24/20 02/24/20 00:09 00:31 01:00 Temperature Pulse Rate 100 H 113 H 101 H Pulse Rate [ From Monitor] Respiratory 24 22 Rate Blood Pressure 118/56 118/56 126/65 O2 Sat by Pulse 100 100 100 Oximetry O2 Sat by Pulse Oximetry [ Assessment] 02/24/20 02/24/20 02/24/20 01:31 02:00 02:31 Temperature Pulse Rate 101 H 112 H 109 H Pulse Rate [ From Monitor] Respiratory 16 25 H 22 Rate Blood Pressure 126/65 134/75 134/75 O2 Sat by Pulse 100 100 100 Oximetry O2 Sat by Pulse Oximetry [ Assessment] 02/24/20 02/24/20 02/24/20 03:00 03:31 04:00 Temperature 99.0 F Pulse Rate 119 H 91 H 91 H Pulse Rate [ 112 H From Monitor] Respiratory 26 H 19 18 Rate Blood Pressure 137/78 137/78 139/59 O2 Sat by Pulse 100 100 100 Oximetry O2 Sat by Pulse Oximetry [ Assessment] 02/24/20 02/24/20 02/24/20 04:26 04:30 04:31 Temperature Pulse Rate 100 H 112 H Pulse Rate [ From Monitor] Respiratory 22 Rate Blood Pressure 139/59 139/59 O2 Sat by Pulse 100 100 Oximetry O2 Sat by Pulse 100 Oximetry [ Assessment] 02/24/20 02/24/20 02/24/20 05:00 05:31 05:34 Temperature Pulse Rate 113 H 123 H Pulse Rate [ From Monitor] Respiratory 24 24 25 H Rate Blood Pressure 134/59 134/59 O2 Sat by Pulse 100 93 Oximetry O2 Sat by Pulse Oximetry [ Assessment] 02/24/20 02/24/20 02/24/20 06:00 06:31 07:01 Temperature Pulse Rate 111 H 103 H 103 H Pulse Rate [ From Monitor] Respiratory 22 19 21 Rate Blood Pressure 131/69 131/69 126/66 O2 Sat by Pulse 100 100 100 Oximetry O2 Sat by Pulse Oximetry [ Assessment] 02/24/20 02/24/20 02/24/20 07:31 08:00 08:20 Temperature 98.6 F Pulse Rate 107 H 123 H 114 H Pulse Rate [ 123 H From Monitor] Respiratory 21 21 Rate Blood Pressure 126/66 119/77 119/77 O2 Sat by Pulse 100 100 100 Oximetry O2 Sat by Pulse Oximetry [ Assessment] 02/24/20 02/24/20 02/24/20 08:23 08:31 09:00 Temperature Pulse Rate 114 H 106 H 108 H Pulse Rate [ From Monitor] Respiratory 20 21 16 Rate Blood Pressure 119/77 119/77 128/70 O2 Sat by Pulse 100 100 98 Oximetry O2 Sat by Pulse Oximetry [ Assessment] 02/24/20 02/24/20 02/24/20 09:31 09:37 10:01 Temperature Pulse Rate 91 H 105 H 120 H Pulse Rate [ From Monitor] Respiratory 15 32 H Rate Blood Pressure 128/70 128/70 109/70 O2 Sat by Pulse 100 100 81 L Oximetry O2 Sat by Pulse Oximetry [ Assessment] 02/24/20 02/24/20 02/24/20 10:31 10:37 11:00 Temperature Pulse Rate 121 H 118 H 111 H Pulse Rate [ From Monitor] Respiratory 23 21 Rate Blood Pressure 109/70 109/70 130/73 O2 Sat by Pulse 100 100 Oximetry O2 Sat by Pulse Oximetry [ Assessment] 02/24/20 02/24/20 11:05 11:31 Temperature Pulse Rate 103 H 99 H Pulse Rate [ From Monitor] Respiratory 28 H 17 Rate Blood Pressure 130/73 109/70 O2 Sat by Pulse 100 100 Oximetry O2 Sat by Pulse Oximetry [ Assessment] Constitutional: no acute distress, alert, other (elderly chronically ill looking female [place] [facility] [place] Eyes: non-icteric ENT: oropharynx moist, other (trach) Neck: supple, no lymphadenopathy, no JVD Effort: normal Ascultation: Bilateral: diminished breath sounds, rhonchi (scant bases) Percussion: Bilateral: not dull Cardiovascular: regular rate and rhythm, other (S1,S2) Gastrointestinal: normoactive bowel sounds, soft, non-tender, non-distended, other (PEG in place) Integumentary: decubitus ulcer Extremities: no cyanosis, pulses normal, no ischemia or petechiae, edema (bilateral upper extremity edema) Neurologic: pupils equal and round, other (awake and alert, not obeying commands) Psychiatric: other (Unable to assess secondary to mental status) CBC and BMP: 02/24/20 07:02 02/24/20 04:20 ABG, PT/INR, D-dimer: ABG ABG pH 7.463 pH Units (7.350-7.450) H 02/13/20 04:30 POC ABG pCO2 38.5 mmHg (32.0-48.0) 02/11/20 03:43 ABG pCO2 39.6 mm Hg 02/13/20 04:30 POC ABG pO2 112.6 mmHg (83-108) H 02/11/20 03:43 ABG pO2 98.4 mm Hg (80.0-90.0) H 02/13/20 04:30 POC ABG HCO3 28 02/11/20 03:43 ABG O2 Saturation 97.7 % (95.0-99.0) 02/13/20 04:30 PT/INR, D-dimer PT 14.4 Sec. (12.2-14.9) 02/02/20 05:25 INR 1.11 (0.87-1.13) 02/02/20 05:25 Abnormal lab findings: Abnormal Labs 01/08/20 01/08/20 01/08/20 16:29 16:29 16:29 WBC 13.5 H RBC Hgb Hct MCHC RDW 15.5 H Plt Count MCH Lymph % (Auto) Lymph # Lymph # (Auto) Seg Neutrophils % Seg Neuts % (Manual) 85.0 H Lymphocytes % (Manual) 11.0 L Seg Neutrophils # Seg Neutrophils # Man 11.5 H Basophils % (Manual) Nucleated RBC % Lymphocytes # (Manual) Monocytes # (Manual) Basophils # (Manual) PT INR Heparin Anti-Xa Level POC ABG pO2 ABG pH ABG Hemoglobin ABG Oxyhemoglobin ABG pO2 ABG HCO3 ABG O2 Saturation ABG Base Excess ABG Potassium ABG Chloride ABG Glucose Oxyhemoglobin Sodium 161 H* Potassium Chloride 125.5 H Carbon Dioxide 20 L BUN 30 H Creatinine Glucose 115 H POC Glucose Lactic Acid 2.20 H* Calcium 7.9 L AST 48 H Phosphorus Total Protein Albumin 2.5 L C-Reactive Protein Arterial Blood Glucose Arterial Blood Ionized Calcium Urine WBC (Auto) Crossmatch 01/08/20 01/08/20 01/08/20 19:02 23:30 Unknown WBC RBC Hgb Hct MCHC RDW Plt Count MCH Lymph % (Auto) Lymph # Lymph # (Auto) Seg Neutrophils % Seg Neuts % (Manual) Lymphocytes % (Manual) Seg Neutrophils # Seg Neutrophils # Man Basophils % (Manual) Nucleated RBC % Lymphocytes # (Manual) Monocytes # (Manual) Basophils # (Manual) PT INR Heparin Anti-Xa Level POC ABG pO2 ABG pH ABG Hemoglobin ABG Oxyhemoglobin ABG pO2 ABG HCO3 ABG O2 Saturation ABG Base Excess ABG Potassium ABG Chloride ABG Glucose Oxyhemoglobin Sodium Potassium Chloride Carbon Dioxide BUN Creatinine Glucose POC Glucose Lactic Acid 2.10 H* 2.50 H* Calcium AST Phosphorus Total Protein Albumin C-Reactive Protein Arterial Blood Glucose Arterial Blood Ionized Calcium Urine WBC (Auto) 11.0 H Crossmatch 01/09/20 01/09/20 01/09/20 00:19 00:54 05:52 WBC 13.5 H RBC 3.02 L Hgb 9.0 L D Hct 27.4 L D MCHC RDW Plt Count MCH Lymph % (Auto) 9.1 L Lymph # Lymph # (Auto) Seg Neutrophils % 87.6 H Seg Neuts % (Manual) Lymphocytes % (Manual) Seg Neutrophils # 11.8 H Seg Neutrophils # Man Basophils % (Manual) Nucleated RBC % Lymphocytes # (Manual) Monocytes # (Manual) Basophils # (Manual) PT INR Heparin Anti-Xa Level POC ABG pO2 ABG pH ABG Hemoglobin ABG Oxyhemoglobin ABG pO2 ABG HCO3 ABG O2 Saturation ABG Base Excess ABG Potassium ABG Chloride ABG Glucose Oxyhemoglobin Sodium Potassium Chloride Carbon Dioxide BUN Creatinine Glucose POC Glucose 118 H 116 H Lactic Acid Calcium AST Phosphorus Total Protein Albumin C-Reactive Protein Arterial Blood Glucose Arterial Blood Ionized Calcium Urine WBC (Auto) Crossmatch 01/09/20 01/09/20 01/09/20 05:52 05:52 13:03 WBC RBC Hgb Hct MCHC RDW Plt Count MCH Lymph % (Auto) Lymph # Lymph # (Auto) Seg Neutrophils % Seg Neuts % (Manual) Lymphocytes % (Manual) Seg Neutrophils # Seg Neutrophils # Man Basophils % (Manual) Nucleated RBC % Lymphocytes # (Manual) Monocytes # (Manual) Basophils # (Manual) PT 17.1 H INR 1.36 H Heparin Anti-Xa Level POC ABG pO2 ABG pH ABG Hemoglobin ABG Oxyhemoglobin ABG pO2 ABG HCO3 ABG O2 Saturation ABG Base Excess ABG Potassium ABG Chloride ABG Glucose Oxyhemoglobin Sodium 162 H* Potassium 3.0 L D Chloride 128.3 H Carbon Dioxide BUN 23 H Creatinine Glucose POC Glucose 55 L Lactic Acid Calcium 7.6 L AST Phosphorus Total Protein Albumin C-Reactive Protein Arterial Blood Glucose Arterial Blood Ionized Calcium Urine WBC (Auto) Crossmatch 01/09/20 01/09/20 01/09/20 21:22 21:50 22:28 WBC RBC Hgb Hct MCHC RDW Plt Count MCH Lymph % (Auto) Lymph # Lymph # (Auto) Seg Neutrophils % Seg Neuts % (Manual) Lymphocytes % (Manual) Seg Neutrophils # Seg Neutrophils # Man Basophils % (Manual) Nucleated RBC % Lymphocytes # (Manual) Monocytes # (Manual) Basophils # (Manual) PT INR Heparin Anti-Xa Level POC ABG pO2 ABG pH ABG Hemoglobin ABG Oxyhemoglobin ABG pO2 ABG HCO3 ABG O2 Saturation ABG Base Excess ABG Potassium ABG Chloride ABG Glucose Oxyhemoglobin Sodium 159 H Potassium 5.1 H D Chloride 128.5 H Carbon Dioxide 16 L BUN 23 H Creatinine Glucose 51 L POC Glucose 52 L 106 H Lactic Acid Calcium 8.2 L AST Phosphorus Total Protein Albumin C-Reactive Protein Arterial Blood Glucose Arterial Blood Ionized Calcium Urine WBC (Auto) Crossmatch 01/10/20 01/10/20 01/10/20 05:23 09:11 10:10 WBC 13.4 H RBC Hgb Hct MCHC RDW Plt Count MCH Lymph % (Auto) 7.2 L Lymph # 1.0 L Lymph # (Auto) Seg Neutrophils % 90.0 H Seg Neuts % (Manual) Lymphocytes % (Manual) Seg Neutrophils # 12.0 H Seg Neutrophils # Man Basophils % (Manual) Nucleated RBC % Lymphocytes # (Manual) Monocytes # (Manual) Basophils # (Manual) PT INR Heparin Anti-Xa Level POC ABG pO2 ABG pH ABG Hemoglobin ABG Oxyhemoglobin ABG pO2 ABG HCO3 ABG O2 Saturation ABG Base Excess ABG Potassium ABG Chloride ABG Glucose Oxyhemoglobin Sodium 155 H Potassium Chloride 122.8 H Carbon Dioxide 21 L BUN 19 H Creatinine Glucose POC Glucose 120 H Lactic Acid Calcium AST Phosphorus Total Protein Albumin C-Reactive Protein Arterial Blood Glucose Arterial Blood Ionized Calcium Urine WBC (Auto) Crossmatch 01/10/20 01/10/20 01/10/20 11:47 11:57 17:09 WBC RBC Hgb Hct MCHC RDW Plt Count MCH Lymph % (Auto) Lymph # Lymph # (Auto) Seg Neutrophils % Seg Neuts % (Manual) Lymphocytes % (Manual) Seg Neutrophils # Seg Neutrophils # Man Basophils % (Manual) Nucleated RBC % Lymphocytes # (Manual) Monocytes # (Manual) Basophils # (Manual) PT INR Heparin Anti-Xa Level POC ABG pO2 ABG pH ABG Hemoglobin ABG Oxyhemoglobin ABG pO2 ABG HCO3 ABG O2 Saturation ABG Base Excess ABG Potassium ABG Chloride ABG Glucose Oxyhemoglobin Sodium 153 H Potassium Chloride 118.3 H Carbon Dioxide 20 L BUN 19 H Creatinine Glucose 113 H POC Glucose 142 H 125 H Lactic Acid Calcium AST Phosphorus Total Protein Albumin C-Reactive Protein Arterial Blood Glucose Arterial Blood Ionized Calcium Urine WBC (Auto) Crossmatch 01/10/20 01/10/20 01/11/20 20:27 22:00 00:45 WBC RBC Hgb Hct MCHC RDW Plt Count MCH Lymph % (Auto) Lymph # Lymph # (Auto) Seg Neutrophils % Seg Neuts % (Manual) Lymphocytes % (Manual) Seg Neutrophils # Seg Neutrophils # Man Basophils % (Manual) Nucleated RBC % Lymphocytes # (Manual) Monocytes # (Manual) Basophils # (Manual) PT INR Heparin Anti-Xa Level POC ABG pO2 ABG pH ABG Hemoglobin ABG Oxyhemoglobin ABG pO2 ABG HCO3 ABG O2 Saturation ABG Base Excess ABG Potassium ABG Chloride ABG Glucose Oxyhemoglobin Sodium 153 H 154 H Potassium 3.3 L 3.2 L Chloride 117.0 H 118.9 H Carbon Dioxide 20 L BUN Creatinine Glucose POC Glucose 136 H Lactic Acid Calcium 8.3 L 8.0 L AST Phosphorus Total Protein Albumin C-Reactive Protein Arterial Blood Glucose Arterial Blood Ionized Calcium Urine WBC (Auto) Crossmatch 01/11/20 01/11/20 01/11/20 07:06 08:03 11:54 WBC RBC Hgb Hct MCHC RDW Plt Count MCH Lymph % (Auto) Lymph # Lymph # (Auto) Seg Neutrophils % Seg Neuts % (Manual) Lymphocytes % (Manual) Seg Neutrophils # Seg Neutrophils # Man Basophils % (Manual) Nucleated RBC % Lymphocytes # (Manual) Monocytes # (Manual) Basophils # (Manual) PT INR Heparin Anti-Xa Level POC ABG pO2 ABG pH ABG Hemoglobin ABG Oxyhemoglobin ABG pO2 ABG HCO3 ABG O2 Saturation ABG Base Excess ABG Potassium ABG Chloride ABG Glucose Oxyhemoglobin Sodium 151 H Potassium Chloride 118.7 H Carbon Dioxide 21 L BUN Creatinine Glucose 107 H POC Glucose 118 H 164 H Lactic Acid Calcium 8.3 L AST Phosphorus Total Protein Albumin C-Reactive Protein Arterial Blood Glucose Arterial Blood Ionized Calcium Urine WBC (Auto) Crossmatch 01/11/20 01/12/20 01/12/20 16:28 00:19 05:40 WBC RBC Hgb Hct MCHC RDW Plt Count MCH Lymph % (Auto) Lymph # Lymph # (Auto) Seg Neutrophils % Seg Neuts % (Manual) Lymphocytes % (Manual) Seg Neutrophils # Seg Neutrophils # Man Basophils % (Manual) Nucleated RBC % Lymphocytes # (Manual) Monocytes # (Manual) Basophils # (Manual) PT INR Heparin Anti-Xa Level POC ABG pO2 ABG pH ABG Hemoglobin ABG Oxyhemoglobin ABG pO2 ABG HCO3 ABG O2 Saturation ABG Base Excess ABG Potassium ABG Chloride ABG Glucose Oxyhemoglobin Sodium 148 H Potassium Chloride 111.6 H Carbon Dioxide 19 L BUN Creatinine Glucose 128 H POC Glucose 132 H 179 H Lactic Acid Calcium 8.2 L AST Phosphorus Total Protein Albumin C-Reactive Protein Arterial Blood Glucose Arterial Blood Ionized Calcium Urine WBC (Auto) Crossmatch 01/12/20 01/12/20 01/12/20 06:17 11:37 17:21 WBC RBC Hgb Hct MCHC RDW Plt Count MCH Lymph % (Auto) Lymph # Lymph # (Auto) Seg Neutrophils % Seg Neuts % (Manual) Lymphocytes % (Manual) Seg Neutrophils # Seg Neutrophils # Man Basophils % (Manual) Nucleated RBC % Lymphocytes # (Manual) Monocytes # (Manual) Basophils # (Manual) PT INR Heparin Anti-Xa Level POC ABG pO2 ABG pH ABG Hemoglobin ABG Oxyhemoglobin ABG pO2 ABG HCO3 ABG O2 Saturation ABG Base Excess ABG Potassium ABG Chloride ABG Glucose Oxyhemoglobin Sodium Potassium Chloride Carbon Dioxide BUN Creatinine Glucose POC Glucose 140 H 142 H 133 H Lactic Acid Calcium AST Phosphorus Total Protein Albumin C-Reactive Protein Arterial Blood Glucose Arterial Blood Ionized Calcium Urine WBC (Auto) Crossmatch 01/12/20 01/13/20 01/13/20 23:14 05:26 07:00 WBC RBC Hgb Hct MCHC RDW Plt Count MCH Lymph % (Auto) Lymph # Lymph # (Auto) Seg Neutrophils % Seg Neuts % (Manual) Lymphocytes % (Manual) Seg Neutrophils # Seg Neutrophils # Man Basophils % (Manual) Nucleated RBC % Lymphocytes # (Manual) Monocytes # (Manual) Basophils # (Manual) PT INR Heparin Anti-Xa Level POC ABG pO2 ABG pH ABG Hemoglobin ABG Oxyhemoglobin ABG pO2 ABG HCO3 ABG O2 Saturation ABG Base Excess ABG Potassium ABG Chloride ABG Glucose Oxyhemoglobin Sodium Potassium Chloride 110.0 H Carbon Dioxide BUN Creatinine Glucose 139 H POC Glucose 135 H 162 H Lactic Acid Calcium 7.8 L AST Phosphorus Total Protein Albumin C-Reactive Protein Arterial Blood Glucose Arterial Blood Ionized Calcium Urine WBC (Auto) Crossmatch 01/13/20 01/13/20 01/13/20 12:14 17:52 21:40 WBC RBC Hgb Hct MCHC RDW Plt Count MCH Lymph % (Auto) Lymph # Lymph # (Auto) Seg Neutrophils % Seg Neuts % (Manual) Lymphocytes % (Manual) Seg Neutrophils # Seg Neutrophils # Man Basophils % (Manual) Nucleated RBC % Lymphocytes # (Manual) Monocytes # (Manual) Basophils # (Manual) PT INR Heparin Anti-Xa Level POC ABG pO2 ABG pH ABG Hemoglobin ABG Oxyhemoglobin ABG pO2 ABG HCO3 ABG O2 Saturation ABG Base Excess ABG Potassium ABG Chloride ABG Glucose Oxyhemoglobin Sodium Potassium Chloride Carbon Dioxide BUN Creatinine Glucose POC Glucose 205 H 172 H 186 H Lactic Acid Calcium AST Phosphorus Total Protein Albumin C-Reactive Protein Arterial Blood Glucose Arterial Blood Ionized Calcium Urine WBC (Auto) Crossmatch 01/14/20 01/14/20 01/14/20 04:28 11:01 11:01 WBC 14.8 H RBC 3.20 L Hgb 9.5 L Hct 28.0 L MCHC RDW Plt Count MCH Lymph % (Auto) Lymph # Lymph # (Auto) Seg Neutrophils % Seg Neuts % (Manual) Lymphocytes % (Manual) Seg Neutrophils # Seg Neutrophils # Man Basophils % (Manual) Nucleated RBC % Lymphocytes # (Manual) Monocytes # (Manual) Basophils # (Manual) PT INR Heparin Anti-Xa Level POC ABG pO2 ABG pH ABG Hemoglobin ABG Oxyhemoglobin ABG pO2 ABG HCO3 ABG O2 Saturation ABG Base Excess ABG Potassium ABG Chloride ABG Glucose Oxyhemoglobin Sodium Potassium 3.2 L Chloride Carbon Dioxide BUN Creatinine 0.4 L Glucose POC Glucose 115 H Lactic Acid Calcium 8.0 L AST Phosphorus Total Protein Albumin C-Reactive Protein Arterial Blood Glucose Arterial Blood Ionized Calcium Urine WBC (Auto) Crossmatch 01/14/20 01/14/20 01/14/20 11:01 16:33 22:32 WBC RBC Hgb Hct MCHC RDW Plt Count MCH Lymph % (Auto) Lymph # Lymph # (Auto) Seg Neutrophils % Seg Neuts % (Manual) Lymphocytes % (Manual) Seg Neutrophils # Seg Neutrophils # Man Basophils % (Manual) Nucleated RBC % Lymphocytes # (Manual) Monocytes # (Manual) Basophils # (Manual) PT 15.8 H INR 1.23 H Heparin Anti-Xa Level POC ABG pO2 ABG pH ABG Hemoglobin ABG Oxyhemoglobin ABG pO2 ABG HCO3 ABG O2 Saturation ABG Base Excess ABG Potassium ABG Chloride ABG Glucose Oxyhemoglobin Sodium Potassium Chloride Carbon Dioxide BUN Creatinine Glucose POC Glucose 58 L 188 H Lactic Acid Calcium AST Phosphorus Total Protein Albumin C-Reactive Protein Arterial Blood Glucose Arterial Blood Ionized Calcium Urine WBC (Auto) Crossmatch 01/15/20 01/15/20 01/15/20 05:35 06:19 17:17 WBC RBC Hgb Hct MCHC RDW Plt Count MCH Lymph % (Auto) Lymph # Lymph # (Auto) Seg Neutrophils % Seg Neuts % (Manual) Lymphocytes % (Manual) Seg Neutrophils # Seg Neutrophils # Man Basophils % (Manual) Nucleated RBC % Lymphocytes # (Manual) Monocytes # (Manual) Basophils # (Manual) PT INR Heparin Anti-Xa Level POC ABG pO2 ABG pH ABG Hemoglobin ABG Oxyhemoglobin ABG pO2 ABG HCO3 ABG O2 Saturation ABG Base Excess ABG Potassium ABG Chloride ABG Glucose Oxyhemoglobin Sodium Potassium Chloride Carbon Dioxide BUN Creatinine 0.5 L Glucose 104 H POC Glucose 106 H 183 H Lactic Acid Calcium 7.8 L AST Phosphorus Total Protein Albumin C-Reactive Protein Arterial Blood Glucose Arterial Blood Ionized Calcium Urine WBC (Auto) Crossmatch 01/15/20 01/16/20 01/16/20 22:29 05:35 05:59 WBC 14.7 H RBC 3.04 L Hgb 9.0 L Hct 27.0 L MCHC RDW Plt Count MCH Lymph % (Auto) 9.1 L Lymph # Lymph # (Auto) Seg Neutrophils % 87.3 H Seg Neuts % (Manual) Lymphocytes % (Manual) Seg Neutrophils # 12.9 H Seg Neutrophils # Man Basophils % (Manual) Nucleated RBC % Lymphocytes # (Manual) Monocytes # (Manual) Basophils # (Manual) PT INR Heparin Anti-Xa Level POC ABG pO2 ABG pH ABG Hemoglobin ABG Oxyhemoglobin ABG pO2 ABG HCO3 ABG O2 Saturation ABG Base Excess ABG Potassium ABG Chloride ABG Glucose Oxyhemoglobin Sodium Potassium Chloride Carbon Dioxide BUN Creatinine Glucose POC Glucose 228 H 130 H Lactic Acid Calcium AST Phosphorus Total Protein Albumin C-Reactive Protein Arterial Blood Glucose Arterial Blood Ionized Calcium Urine WBC (Auto) Crossmatch 01/16/20 01/16/20 01/16/20 09:52 12:49 17:30 WBC RBC Hgb Hct MCHC RDW Plt Count MCH Lymph % (Auto) Lymph # Lymph # (Auto) Seg Neutrophils % Seg Neuts % (Manual) Lymphocytes % (Manual) Seg Neutrophils # Seg Neutrophils # Man Basophils % (Manual) Nucleated RBC % Lymphocytes # (Manual) Monocytes # (Manual) Basophils # (Manual) PT INR Heparin Anti-Xa Level POC ABG pO2 ABG pH ABG Hemoglobin ABG Oxyhemoglobin ABG pO2 ABG HCO3 ABG O2 Saturation ABG Base Excess ABG Potassium ABG Chloride ABG Glucose Oxyhemoglobin Sodium Potassium Chloride Carbon Dioxide BUN Creatinine Glucose POC Glucose 122 H 142 H 192 H Lactic Acid Calcium AST Phosphorus Total Protein Albumin C-Reactive Protein Arterial Blood Glucose Arterial Blood Ionized Calcium Urine WBC (Auto) Crossmatch 01/16/20 01/17/20 01/17/20 23:01 08:36 08:36 WBC 12.7 H RBC 2.98 L Hgb 8.9 L Hct 26.4 L MCHC RDW Plt Count MCH Lymph % (Auto) 8.8 L Lymph # 1.1 L Lymph # (Auto) Seg Neutrophils % 86.7 H Seg Neuts % (Manual) Lymphocytes % (Manual) Seg Neutrophils # 11.0 H Seg Neutrophils # Man Basophils % (Manual) Nucleated RBC % Lymphocytes # (Manual) Monocytes # (Manual) Basophils # (Manual) PT INR Heparin Anti-Xa Level POC ABG pO2 ABG pH ABG Hemoglobin ABG Oxyhemoglobin ABG pO2 ABG HCO3 ABG O2 Saturation ABG Base Excess ABG Potassium ABG Chloride ABG Glucose Oxyhemoglobin Sodium Potassium 3.3 L D Chloride Carbon Dioxide BUN Creatinine 0.4 L Glucose POC Glucose 141 H Lactic Acid Calcium 8.1 L AST Phosphorus Total Protein 4.6 L Albumin 1.6 L C-Reactive Protein Arterial Blood Glucose Arterial Blood Ionized Calcium Urine WBC (Auto) Crossmatch 01/17/20 01/17/20 01/18/20 11:43 23:56 06:27 WBC RBC Hgb Hct MCHC RDW Plt Count MCH Lymph % (Auto) Lymph # Lymph # (Auto) Seg Neutrophils % Seg Neuts % (Manual) Lymphocytes % (Manual) Seg Neutrophils # Seg Neutrophils # Man Basophils % (Manual) Nucleated RBC % Lymphocytes # (Manual) Monocytes # (Manual) Basophils # (Manual) PT INR Heparin Anti-Xa Level POC ABG pO2 ABG pH ABG Hemoglobin ABG Oxyhemoglobin ABG pO2 ABG HCO3 ABG O2 Saturation ABG Base Excess ABG Potassium ABG Chloride ABG Glucose Oxyhemoglobin Sodium Potassium Chloride Carbon Dioxide BUN Creatinine Glucose POC Glucose 137 H 215 H 122 H Lactic Acid Calcium AST Phosphorus Total Protein Albumin C-Reactive Protein Arterial Blood Glucose Arterial Blood Ionized Calcium Urine WBC (Auto) Crossmatch 01/18/20 01/18/20 01/18/20 07:31 07:31 11:39 WBC 12.1 H RBC 3.23 L Hgb 9.7 L Hct 28.7 L MCHC RDW Plt Count MCH Lymph % (Auto) 9.2 L Lymph # 1.1 L Lymph # (Auto) Seg Neutrophils % 85.0 H Seg Neuts % (Manual) Lymphocytes % (Manual) Seg Neutrophils # 10.3 H Seg Neutrophils # Man Basophils % (Manual) Nucleated RBC % Lymphocytes # (Manual) Monocytes # (Manual) Basophils # (Manual) PT INR Heparin Anti-Xa Level POC ABG pO2 ABG pH ABG Hemoglobin ABG Oxyhemoglobin ABG pO2 ABG HCO3 ABG O2 Saturation ABG Base Excess ABG Potassium ABG Chloride ABG Glucose Oxyhemoglobin Sodium Potassium Chloride Carbon Dioxide BUN Creatinine 0.4 L Glucose 108 H POC Glucose 172 H Lactic Acid Calcium AST Phosphorus Total Protein 5.3 L Albumin 2.1 L C-Reactive Protein Arterial Blood Glucose Arterial Blood Ionized Calcium Urine WBC (Auto) Crossmatch 01/18/20 01/19/20 01/19/20 18:22 00:15 11:30 WBC RBC Hgb Hct MCHC RDW Plt Count MCH Lymph % (Auto) Lymph # Lymph # (Auto) Seg Neutrophils % Seg Neuts % (Manual) Lymphocytes % (Manual) Seg Neutrophils # Seg Neutrophils # Man Basophils % (Manual) Nucleated RBC % Lymphocytes # (Manual) Monocytes # (Manual) Basophils # (Manual) PT INR Heparin Anti-Xa Level POC ABG pO2 ABG pH ABG Hemoglobin ABG Oxyhemoglobin ABG pO2 ABG HCO3 ABG O2 Saturation ABG Base Excess ABG Potassium ABG Chloride ABG Glucose Oxyhemoglobin Sodium Potassium Chloride Carbon Dioxide BUN Creatinine Glucose POC Glucose 119 H 135 H 163 H Lactic Acid Calcium AST Phosphorus Total Protein Albumin C-Reactive Protein Arterial Blood Glucose Arterial Blood Ionized Calcium Urine WBC (Auto) Crossmatch 01/19/20 01/19/20 01/20/20 17:44 22:59 03:44 WBC 11.1 H RBC 2.77 L Hgb 8.4 L Hct 25.0 L MCHC RDW Plt Count MCH Lymph % (Auto) Lymph # Lymph # (Auto) Seg Neutrophils % 74.6 H Seg Neuts % (Manual) Lymphocytes % (Manual) Seg Neutrophils # 8.3 H Seg Neutrophils # Man Basophils % (Manual) Nucleated RBC % Lymphocytes # (Manual) Monocytes # (Manual) Basophils # (Manual) PT INR Heparin Anti-Xa Level POC ABG pO2 ABG pH ABG Hemoglobin ABG Oxyhemoglobin ABG pO2 ABG HCO3 ABG O2 Saturation ABG Base Excess ABG Potassium ABG Chloride ABG Glucose Oxyhemoglobin Sodium Potassium Chloride Carbon Dioxide BUN Creatinine Glucose POC Glucose 161 H 182 H Lactic Acid Calcium AST Phosphorus Total Protein Albumin C-Reactive Protein Arterial Blood Glucose Arterial Blood Ionized Calcium Urine WBC (Auto) Crossmatch 01/20/20 01/21/20 01/21/20 03:44 00:07 05:51 WBC RBC 2.84 L Hgb 8.6 L Hct 25.5 L MCHC RDW Plt Count 463 H MCH Lymph % (Auto) Lymph # Lymph # (Auto) Seg Neutrophils % 76.9 H Seg Neuts % (Manual) Lymphocytes % (Manual) Seg Neutrophils # 7.8 H Seg Neutrophils # Man Basophils % (Manual) Nucleated RBC % Lymphocytes # (Manual) Monocytes # (Manual) Basophils # (Manual) PT INR Heparin Anti-Xa Level POC ABG pO2 ABG pH ABG Hemoglobin ABG Oxyhemoglobin ABG pO2 ABG HCO3 ABG O2 Saturation ABG Base Excess ABG Potassium ABG Chloride ABG Glucose Oxyhemoglobin Sodium Potassium Chloride Carbon Dioxide BUN Creatinine 0.4 L Glucose POC Glucose 68 L Lactic Acid Calcium 7.9 L AST Phosphorus Total Protein 4.7 L Albumin 1.9 L C-Reactive Protein Arterial Blood Glucose Arterial Blood Ionized Calcium Urine WBC (Auto) Crossmatch 01/21/20 01/21/20 01/21/20 05:51 05:58 11:25 WBC RBC Hgb Hct MCHC RDW Plt Count MCH Lymph % (Auto) Lymph # Lymph # (Auto) Seg Neutrophils % Seg Neuts % (Manual) Lymphocytes % (Manual) Seg Neutrophils # Seg Neutrophils # Man Basophils % (Manual) Nucleated RBC % Lymphocytes # (Manual) Monocytes # (Manual) Basophils # (Manual) PT INR Heparin Anti-Xa Level POC ABG pO2 ABG pH ABG Hemoglobin ABG Oxyhemoglobin ABG pO2 ABG HCO3 ABG O2 Saturation ABG Base Excess ABG Potassium ABG Chloride ABG Glucose Oxyhemoglobin Sodium Potassium Chloride Carbon Dioxide 20 L BUN Creatinine 0.5 L Glucose 130 H POC Glucose 185 H 163 H Lactic Acid Calcium 7.6 L AST Phosphorus Total Protein 5.0 L Albumin 1.9 L C-Reactive Protein Arterial Blood Glucose Arterial Blood Ionized Calcium Urine WBC (Auto) Crossmatch 01/21/20 01/21/20 01/22/20 16:22 21:17 01:28 WBC RBC 2.60 L Hgb 8.0 L Hct 23.3 L MCHC RDW Plt Count MCH Lymph % (Auto) Lymph # Lymph # (Auto) Seg Neutrophils % 74.8 H Seg Neuts % (Manual) Lymphocytes % (Manual) Seg Neutrophils # Seg Neutrophils # Man Basophils % (Manual) Nucleated RBC % Lymphocytes # (Manual) Monocytes # (Manual) Basophils # (Manual) PT INR Heparin Anti-Xa Level POC ABG pO2 ABG pH ABG Hemoglobin ABG Oxyhemoglobin ABG pO2 ABG HCO3 ABG O2 Saturation ABG Base Excess ABG Potassium ABG Chloride ABG Glucose Oxyhemoglobin Sodium Potassium Chloride Carbon Dioxide BUN Creatinine Glucose POC Glucose 177 H 67 L Lactic Acid Calcium AST Phosphorus Total Protein Albumin C-Reactive Protein Arterial Blood Glucose Arterial Blood Ionized Calcium Urine WBC (Auto) Crossmatch 01/22/20 01/22/20 01/22/20 01:28 01:28 12:06 WBC RBC Hgb Hct MCHC RDW Plt Count MCH Lymph % (Auto) Lymph # Lymph # (Auto) Seg Neutrophils % Seg Neuts % (Manual) Lymphocytes % (Manual) Seg Neutrophils # Seg Neutrophils # Man Basophils % (Manual) Nucleated RBC % Lymphocytes # (Manual) Monocytes # (Manual) Basophils # (Manual) PT INR Heparin Anti-Xa Level POC ABG pO2 ABG pH ABG Hemoglobin ABG Oxyhemoglobin ABG pO2 ABG HCO3 ABG O2 Saturation ABG Base Excess ABG Potassium ABG Chloride ABG Glucose Oxyhemoglobin Sodium Potassium Chloride 107.6 H Carbon Dioxide BUN Creatinine 0.4 L Glucose 152 H POC Glucose 203 H 140 H Lactic Acid Calcium 7.5 L AST Phosphorus Total Protein 4.0 L Albumin 2.0 L C-Reactive Protein Arterial Blood Glucose Arterial Blood Ionized Calcium Urine WBC (Auto) Crossmatch 01/22/20 01/22/20 01/23/20 16:24 22:55 06:10 WBC RBC 2.68 L Hgb 8.6 L Hct 24.1 L MCHC 36 H RDW Plt Count MCH Lymph % (Auto) Lymph # Lymph # (Auto) Seg Neutrophils % Seg Neuts % (Manual) 71.0 H Lymphocytes % (Manual) Seg Neutrophils # Seg Neutrophils # Man Basophils % (Manual) Nucleated RBC % Lymphocytes # (Manual) Monocytes # (Manual) Basophils # (Manual) PT INR Heparin Anti-Xa Level POC ABG pO2 ABG pH ABG Hemoglobin ABG Oxyhemoglobin ABG pO2 ABG HCO3 ABG O2 Saturation ABG Base Excess ABG Potassium ABG Chloride ABG Glucose Oxyhemoglobin Sodium Potassium Chloride Carbon Dioxide BUN Creatinine Glucose POC Glucose 205 H 196 H Lactic Acid Calcium AST Phosphorus Total Protein Albumin C-Reactive Protein Arterial Blood Glucose Arterial Blood Ionized Calcium Urine WBC (Auto) Crossmatch 01/23/20 01/23/20 01/23/20 06:10 07:35 11:59 WBC RBC Hgb Hct MCHC RDW Plt Count MCH Lymph % (Auto) Lymph # Lymph # (Auto) Seg Neutrophils % Seg Neuts % (Manual) Lymphocytes % (Manual) Seg Neutrophils # Seg Neutrophils # Man Basophils % (Manual) Nucleated RBC % Lymphocytes # (Manual) Monocytes # (Manual) Basophils # (Manual) PT INR Heparin Anti-Xa Level POC ABG pO2 ABG pH ABG Hemoglobin ABG Oxyhemoglobin ABG pO2 ABG HCO3 ABG O2 Saturation ABG Base Excess ABG Potassium ABG Chloride ABG Glucose Oxyhemoglobin Sodium Potassium Chloride 108.8 H Carbon Dioxide BUN Creatinine 0.4 L Glucose 105 H POC Glucose 111 H 123 H Lactic Acid Calcium 8.0 L AST Phosphorus Total Protein 4.9 L D Albumin 2.0 L C-Reactive Protein Arterial Blood Glucose Arterial Blood Ionized Calcium Urine WBC (Auto) Crossmatch 01/23/20 01/24/20 01/24/20 22:45 11:24 16:41 WBC RBC Hgb Hct MCHC RDW Plt Count MCH Lymph % (Auto) Lymph # Lymph # (Auto) Seg Neutrophils % Seg Neuts % (Manual) Lymphocytes % (Manual) Seg Neutrophils # Seg Neutrophils # Man Basophils % (Manual) Nucleated RBC % Lymphocytes # (Manual) Monocytes # (Manual) Basophils # (Manual) PT INR Heparin Anti-Xa Level POC ABG pO2 ABG pH ABG Hemoglobin ABG Oxyhemoglobin ABG pO2 ABG HCO3 ABG O2 Saturation ABG Base Excess ABG Potassium ABG Chloride ABG Glucose Oxyhemoglobin Sodium Potassium Chloride Carbon Dioxide BUN Creatinine Glucose POC Glucose 180 H 182 H 177 H Lactic Acid Calcium AST Phosphorus Total Protein Albumin C-Reactive Protein Arterial Blood Glucose Arterial Blood Ionized Calcium Urine WBC (Auto) Crossmatch 01/24/20 01/25/20 01/25/20 23:11 07:12 11:35 WBC RBC Hgb Hct MCHC RDW Plt Count MCH Lymph % (Auto) Lymph # Lymph # (Auto) Seg Neutrophils % Seg Neuts % (Manual) Lymphocytes % (Manual) Seg Neutrophils # Seg Neutrophils # Man Basophils % (Manual) Nucleated RBC % Lymphocytes # (Manual) Monocytes # (Manual) Basophils # (Manual) PT INR Heparin Anti-Xa Level POC ABG pO2 ABG pH ABG Hemoglobin ABG Oxyhemoglobin ABG pO2 ABG HCO3 ABG O2 Saturation ABG Base Excess ABG Potassium ABG Chloride ABG Glucose Oxyhemoglobin Sodium Potassium Chloride Carbon Dioxide BUN Creatinine Glucose POC Glucose 142 H 135 H 142 H Lactic Acid Calcium AST Phosphorus Total Protein Albumin C-Reactive Protein Arterial Blood Glucose Arterial Blood Ionized Calcium Urine WBC (Auto) Crossmatch 01/25/20 01/26/20 01/26/20 16:33 00:04 11:35 WBC RBC Hgb Hct MCHC RDW Plt Count MCH Lymph % (Auto) Lymph # Lymph # (Auto) Seg Neutrophils % Seg Neuts % (Manual) Lymphocytes % (Manual) Seg Neutrophils # Seg Neutrophils # Man Basophils % (Manual) Nucleated RBC % Lymphocytes # (Manual) Monocytes # (Manual) Basophils # (Manual) PT INR Heparin Anti-Xa Level POC ABG pO2 ABG pH ABG Hemoglobin ABG Oxyhemoglobin ABG pO2 ABG HCO3 ABG O2 Saturation ABG Base Excess ABG Potassium ABG Chloride ABG Glucose Oxyhemoglobin Sodium Potassium Chloride Carbon Dioxide BUN Creatinine Glucose POC Glucose 247 H 233 H 200 H Lactic Acid Calcium AST Phosphorus Total Protein Albumin C-Reactive Protein Arterial Blood Glucose Arterial Blood Ionized Calcium Urine WBC (Auto) Crossmatch 01/26/20 01/26/20 01/26/20 16:30 16:30 17:19 WBC RBC Hgb 7.4 L Hct 22.0 L MCHC RDW Plt Count MCH Lymph % (Auto) Lymph # Lymph # (Auto) Seg Neutrophils % Seg Neuts % (Manual) Lymphocytes % (Manual) Seg Neutrophils # Seg Neutrophils # Man Basophils % (Manual) Nucleated RBC % Lymphocytes # (Manual) Monocytes # (Manual) Basophils # (Manual) PT 18.4 H INR 1.50 H Heparin Anti-Xa Level POC ABG pO2 ABG pH ABG Hemoglobin ABG Oxyhemoglobin ABG pO2 ABG HCO3 ABG O2 Saturation ABG Base Excess ABG Potassium ABG Chloride ABG Glucose Oxyhemoglobin Sodium Potassium Chloride Carbon Dioxide BUN Creatinine Glucose POC Glucose 67 L Lactic Acid Calcium AST Phosphorus Total Protein Albumin C-Reactive Protein Arterial Blood Glucose Arterial Blood Ionized Calcium Urine WBC (Auto) Crossmatch 01/26/20 01/26/20 01/27/20 20:24 21:32 00:16 WBC RBC Hgb Hct MCHC RDW Plt Count MCH Lymph % (Auto) Lymph # Lymph # (Auto) Seg Neutrophils % Seg Neuts % (Manual) Lymphocytes % (Manual) Seg Neutrophils # Seg Neutrophils # Man Basophils % (Manual) Nucleated RBC % Lymphocytes # (Manual) Monocytes # (Manual) Basophils # (Manual) PT INR Heparin Anti-Xa Level POC ABG pO2 51.8 L ABG pH ABG Hemoglobin 8.5 L ABG Oxyhemoglobin 84.7 L ABG pO2 ABG HCO3 ABG O2 Saturation ABG Base Excess ABG Potassium ABG Chloride ABG Glucose Oxyhemoglobin Sodium Potassium Chloride Carbon Dioxide BUN Creatinine Glucose POC Glucose 162 H 141 H Lactic Acid Calcium AST Phosphorus Total Protein Albumin C-Reactive Protein Arterial Blood Glucose Arterial Blood Ionized Calcium Urine WBC (Auto) Crossmatch 01/27/20 01/27/20 01/27/20 01:42 02:18 05:57 WBC RBC Hgb Hct MCHC RDW Plt Count MCH Lymph % (Auto) Lymph # Lymph # (Auto) Seg Neutrophils % Seg Neuts % (Manual) Lymphocytes % (Manual) Seg Neutrophils # Seg Neutrophils # Man Basophils % (Manual) Nucleated RBC % Lymphocytes # (Manual) Monocytes # (Manual) Basophils # (Manual) PT INR Heparin Anti-Xa Level 2.00 H POC ABG pO2 ABG pH ABG Hemoglobin ABG Oxyhemoglobin ABG pO2 ABG HCO3 ABG O2 Saturation ABG Base Excess ABG Potassium ABG Chloride ABG Glucose Oxyhemoglobin Sodium Potassium Chloride Carbon Dioxide BUN Creatinine Glucose POC Glucose 183 H 124 H Lactic Acid Calcium AST Phosphorus Total Protein Albumin C-Reactive Protein Arterial Blood Glucose Arterial Blood Ionized Calcium Urine WBC (Auto) Crossmatch 01/27/20 01/27/20 01/27/20 06:30 06:30 12:23 WBC RBC 2.75 L Hgb 8.4 L Hct 24.9 L MCHC RDW 16.0 H Plt Count 474 H MCH Lymph % (Auto) 12.7 L Lymph # Lymph # (Auto) Seg Neutrophils % 83.2 H Seg Neuts % (Manual) Lymphocytes % (Manual) Seg Neutrophils # 8.4 H Seg Neutrophils # Man Basophils % (Manual) Nucleated RBC % Lymphocytes # (Manual) Monocytes # (Manual) Basophils # (Manual) PT INR Heparin Anti-Xa Level POC ABG pO2 ABG pH ABG Hemoglobin ABG Oxyhemoglobin ABG pO2 ABG HCO3 ABG O2 Saturation ABG Base Excess ABG Potassium ABG Chloride ABG Glucose Oxyhemoglobin Sodium Potassium 3.5 L Chloride 110.2 H Carbon Dioxide BUN Creatinine 0.4 L Glucose 101 H POC Glucose 126 H Lactic Acid Calcium 7.8 L AST Phosphorus Total Protein Albumin C-Reactive Protein Arterial Blood Glucose Arterial Blood Ionized Calcium Urine WBC (Auto) Crossmatch 01/27/20 01/27/20 01/28/20 17:31 23:40 00:00 WBC RBC Hgb Hct MCHC RDW Plt Count MCH Lymph % (Auto) Lymph # Lymph # (Auto) Seg Neutrophils % Seg Neuts % (Manual) Lymphocytes % (Manual) Seg Neutrophils # Seg Neutrophils # Man Basophils % (Manual) Nucleated RBC % Lymphocytes # (Manual) Monocytes # (Manual) Basophils # (Manual) PT INR Heparin Anti-Xa Level 2.00 H POC ABG pO2 ABG pH ABG Hemoglobin ABG Oxyhemoglobin ABG pO2 ABG HCO3 ABG O2 Saturation ABG Base Excess ABG Potassium ABG Chloride ABG Glucose Oxyhemoglobin Sodium Potassium Chloride Carbon Dioxide BUN Creatinine Glucose POC Glucose 133 H 136 H Lactic Acid Calcium AST Phosphorus Total Protein Albumin C-Reactive Protein Arterial Blood Glucose Arterial Blood Ionized Calcium Urine WBC (Auto) Crossmatch 01/28/20 01/28/20 01/28/20 04:26 04:26 05:35 WBC RBC Hgb 9.6 L Hct 28.5 L MCHC RDW Plt Count 508 H MCH Lymph % (Auto) Lymph # Lymph # (Auto) Seg Neutrophils % Seg Neuts % (Manual) Lymphocytes % (Manual) Seg Neutrophils # Seg Neutrophils # Man Basophils % (Manual) Nucleated RBC % Lymphocytes # (Manual) Monocytes # (Manual) Basophils # (Manual) PT INR Heparin Anti-Xa Level POC ABG pO2 ABG pH ABG Hemoglobin ABG Oxyhemoglobin ABG pO2 ABG HCO3 ABG O2 Saturation ABG Base Excess ABG Potassium ABG Chloride ABG Glucose Oxyhemoglobin Sodium Potassium Chloride Carbon Dioxide 19 L BUN 20 H Creatinine 0.5 L Glucose 103 H POC Glucose 135 H Lactic Acid Calcium 7.9 L AST Phosphorus Total Protein Albumin C-Reactive Protein Arterial Blood Glucose Arterial Blood Ionized Calcium Urine WBC (Auto) Crossmatch 01/28/20 01/28/20 01/28/20 08:50 11:10 11:51 WBC RBC Hgb Hct MCHC RDW Plt Count MCH Lymph % (Auto) Lymph # Lymph # (Auto) Seg Neutrophils % Seg Neuts % (Manual) Lymphocytes % (Manual) Seg Neutrophils # Seg Neutrophils # Man Basophils % (Manual) Nucleated RBC % Lymphocytes # (Manual) Monocytes # (Manual) Basophils # (Manual) PT INR Heparin Anti-Xa Level 0.74 H POC ABG pO2 67.2 L ABG pH ABG Hemoglobin 9.3 L ABG Oxyhemoglobin ABG pO2 ABG HCO3 ABG O2 Saturation ABG Base Excess ABG Potassium ABG Chloride ABG Glucose Oxyhemoglobin Sodium Potassium Chloride Carbon Dioxide BUN Creatinine Glucose POC Glucose 160 H Lactic Acid Calcium AST Phosphorus Total Protein Albumin C-Reactive Protein Arterial Blood Glucose Arterial Blood Ionized Calcium Urine WBC (Auto) Crossmatch 01/28/20 01/28/20 01/29/20 17:19 23:53 03:52 WBC RBC Hgb Hct MCHC RDW Plt Count MCH Lymph % (Auto) Lymph # Lymph # (Auto) Seg Neutrophils % Seg Neuts % (Manual) Lymphocytes % (Manual) Seg Neutrophils # Seg Neutrophils # Man Basophils % (Manual) Nucleated RBC % Lymphocytes # (Manual) Monocytes # (Manual) Basophils # (Manual) PT INR Heparin Anti-Xa Level POC ABG pO2 ABG pH 7.510 H ABG Hemoglobin 7.3 L ABG Oxyhemoglobin ABG pO2 357.0 H ABG HCO3 19.6 L ABG O2 Saturation 99.6 H ABG Base Excess -2.9 L ABG Potassium ABG Chloride ABG Glucose Oxyhemoglobin Sodium Potassium Chloride Carbon Dioxide BUN Creatinine Glucose POC Glucose 177 H 142 H Lactic Acid Calcium AST Phosphorus Total Protein Albumin C-Reactive Protein Arterial Blood Glucose Arterial Blood Ionized Calcium Urine WBC (Auto) Crossmatch 01/29/20 01/29/20 01/29/20 04:58 04:58 06:01 WBC 13.1 H RBC 2.75 L Hgb 8.6 L Hct 25.6 L MCHC RDW 17.7 H Plt Count MCH Lymph % (Auto) Lymph # Lymph # (Auto) Seg Neutrophils % Seg Neuts % (Manual) 91.0 H Lymphocytes % (Manual) 6.0 L Seg Neutrophils # Seg Neutrophils # Man 11.9 H Basophils % (Manual) Nucleated RBC % 1.0 H Lymphocytes # (Manual) 0.8 L Monocytes # (Manual) Basophils # (Manual) PT INR Heparin Anti-Xa Level POC ABG pO2 ABG pH ABG Hemoglobin ABG Oxyhemoglobin ABG pO2 ABG HCO3 ABG O2 Saturation ABG Base Excess ABG Potassium ABG Chloride ABG Glucose Oxyhemoglobin Sodium 148 H Potassium 3.5 L D Chloride 113.2 H Carbon Dioxide 21 L BUN 20 H Creatinine Glucose 137 H POC Glucose 167 H Lactic Acid Calcium 8.1 L AST Phosphorus Total Protein Albumin C-Reactive Protein Arterial Blood Glucose Arterial Blood Ionized Calcium Urine WBC (Auto) Crossmatch 01/29/20 01/29/20 01/29/20 11:45 17:52 23:49 WBC RBC Hgb Hct MCHC RDW Plt Count MCH Lymph % (Auto) Lymph # Lymph # (Auto) Seg Neutrophils % Seg Neuts % (Manual) Lymphocytes % (Manual) Seg Neutrophils # Seg Neutrophils # Man Basophils % (Manual) Nucleated RBC % Lymphocytes # (Manual) Monocytes # (Manual) Basophils # (Manual) PT INR Heparin Anti-Xa Level POC ABG pO2 ABG pH ABG Hemoglobin ABG Oxyhemoglobin ABG pO2 ABG HCO3 ABG O2 Saturation ABG Base Excess ABG Potassium ABG Chloride ABG Glucose Oxyhemoglobin Sodium Potassium Chloride Carbon Dioxide BUN Creatinine Glucose POC Glucose 185 H 226 H 141 H Lactic Acid Calcium AST Phosphorus Total Protein Albumin C-Reactive Protein Arterial Blood Glucose Arterial Blood Ionized Calcium Urine WBC (Auto) Crossmatch 01/29/20 01/30/20 01/30/20 Unknown 03:24 04:00 WBC RBC Hgb 7.8 L Hct 23.5 L MCHC RDW Plt Count MCH Lymph % (Auto) Lymph # Lymph # (Auto) Seg Neutrophils % Seg Neuts % (Manual) Lymphocytes % (Manual) Seg Neutrophils # Seg Neutrophils # Man Basophils % (Manual) Nucleated RBC % Lymphocytes # (Manual) Monocytes # (Manual) Basophils # (Manual) PT INR Heparin Anti-Xa Level POC ABG pO2 ABG pH 7.485 H ABG Hemoglobin 6.7 L ABG Oxyhemoglobin ABG pO2 102.0 H ABG HCO3 ABG O2 Saturation ABG Base Excess ABG Potassium ABG Chloride ABG Glucose Oxyhemoglobin Sodium Potassium Chloride Carbon Dioxide BUN Creatinine Glucose POC Glucose Lactic Acid Calcium AST Phosphorus Total Protein Albumin C-Reactive Protein 14.80 H Arterial Blood Glucose Arterial Blood Ionized Calcium Urine WBC (Auto) Crossmatch 01/30/20 01/30/20 01/30/20 05:50 11:15 17:07 WBC RBC Hgb Hct MCHC RDW Plt Count MCH Lymph % (Auto) Lymph # Lymph # (Auto) Seg Neutrophils % Seg Neuts % (Manual) Lymphocytes % (Manual) Seg Neutrophils # Seg Neutrophils # Man Basophils % (Manual) Nucleated RBC % Lymphocytes # (Manual) Monocytes # (Manual) Basophils # (Manual) PT INR Heparin Anti-Xa Level POC ABG pO2 ABG pH ABG Hemoglobin ABG Oxyhemoglobin ABG pO2 ABG HCO3 ABG O2 Saturation ABG Base Excess ABG Potassium ABG Chloride ABG Glucose Oxyhemoglobin Sodium Potassium Chloride Carbon Dioxide BUN Creatinine Glucose POC Glucose 122 H 207 H 124 H Lactic Acid Calcium AST Phosphorus Total Protein Albumin C-Reactive Protein Arterial Blood Glucose Arterial Blood Ionized Calcium Urine WBC (Auto) Crossmatch 01/30/20 01/31/20 01/31/20 17:08 00:10 04:52 WBC RBC Hgb Hct MCHC RDW Plt Count MCH Lymph % (Auto) Lymph # Lymph # (Auto) Seg Neutrophils % Seg Neuts % (Manual) Lymphocytes % (Manual) Seg Neutrophils # Seg Neutrophils # Man Basophils % (Manual) Nucleated RBC % Lymphocytes # (Manual) Monocytes # (Manual) Basophils # (Manual) PT INR Heparin Anti-Xa Level POC ABG pO2 ABG pH 7.504 H 7.486 H ABG Hemoglobin 7.4 L 6.2 L ABG Oxyhemoglobin ABG pO2 169.2 H 121.7 H ABG HCO3 27.1 H ABG O2 Saturation 99.1 H ABG Base Excess 3.4 H ABG Potassium ABG Chloride ABG Glucose Oxyhemoglobin Sodium Potassium Chloride Carbon Dioxide BUN Creatinine Glucose POC Glucose 191 H Lactic Acid Calcium AST Phosphorus Total Protein Albumin C-Reactive Protein Arterial Blood Glucose Arterial Blood Ionized Calcium Urine WBC (Auto) Crossmatch 01/31/20 01/31/20 01/31/20 05:37 11:59 12:40 WBC RBC 2.41 L Hgb 7.5 L Hct 22.3 L MCHC RDW 22.2 H Plt Count MCH Lymph % (Auto) Lymph # Lymph # (Auto) Seg Neutrophils % Seg Neuts % (Manual) 94.0 H Lymphocytes % (Manual) 2.0 L Seg Neutrophils # Seg Neutrophils # Man 9.4 H Basophils % (Manual) Nucleated RBC % Lymphocytes # (Manual) 0.2 L Monocytes # (Manual) Basophils # (Manual) PT INR Heparin Anti-Xa Level POC ABG pO2 ABG pH ABG Hemoglobin ABG Oxyhemoglobin ABG pO2 ABG HCO3 ABG O2 Saturation ABG Base Excess ABG Potassium ABG Chloride ABG Glucose Oxyhemoglobin Sodium Potassium Chloride Carbon Dioxide BUN Creatinine Glucose POC Glucose 175 H 220 H Lactic Acid Calcium AST Phosphorus Total Protein Albumin C-Reactive Protein Arterial Blood Glucose Arterial Blood Ionized Calcium Urine WBC (Auto) Crossmatch 01/31/20 01/31/20 01/31/20 12:40 14:40 18:18 WBC RBC Hgb Hct MCHC RDW Plt Count MCH Lymph % (Auto) Lymph # Lymph # (Auto) Seg Neutrophils % Seg Neuts % (Manual) Lymphocytes % (Manual) Seg Neutrophils # Seg Neutrophils # Man Basophils % (Manual) Nucleated RBC % Lymphocytes # (Manual) Monocytes # (Manual) Basophils # (Manual) PT INR Heparin Anti-Xa Level POC ABG pO2 124.7 H ABG pH 7.542 H ABG Hemoglobin 7.8 L ABG Oxyhemoglobin ABG pO2 ABG HCO3 ABG O2 Saturation ABG Base Excess ABG Potassium ABG Chloride ABG Glucose Oxyhemoglobin Sodium 151 H Potassium 2.1 L* D Chloride 108.9 H Carbon Dioxide BUN 22 H Creatinine Glucose 194 H POC Glucose 181 H Lactic Acid Calcium 8.1 L AST Phosphorus Total Protein 4.8 L Albumin 2.3 L C-Reactive Protein Arterial Blood Glucose Arterial Blood Ionized Calcium Urine WBC (Auto) Crossmatch 02/01/20 02/01/20 02/01/20 00:11 03:14 04:32 WBC 11.9 H RBC 2.47 L Hgb 7.6 L Hct 22.8 L MCHC RDW 22.7 H Plt Count MCH Lymph % (Auto) Lymph # Lymph # (Auto) Seg Neutrophils % Seg Neuts % (Manual) 90.0 H Lymphocytes % (Manual) 5.0 L Seg Neutrophils # Seg Neutrophils # Man 10.7 H Basophils % (Manual) Nucleated RBC % Lymphocytes # (Manual) 0.6 L Monocytes # (Manual) Basophils # (Manual) PT INR Heparin Anti-Xa Level POC ABG pO2 ABG pH 7.564 H ABG Hemoglobin 7.6 L ABG Oxyhemoglobin ABG pO2 124.1 H ABG HCO3 29.6 H ABG O2 Saturation ABG Base Excess 7.0 H ABG Potassium ABG Chloride ABG Glucose Oxyhemoglobin Sodium Potassium Chloride Carbon Dioxide BUN Creatinine Glucose POC Glucose 190 H Lactic Acid Calcium AST Phosphorus Total Protein Albumin C-Reactive Protein Arterial Blood Glucose Arterial Blood Ionized Calcium Urine WBC (Auto) Crossmatch 0902/[id number] 02/01/20 04:32 05:28 11:56 WBC RBC Hgb Hct MCHC RDW Plt Count MCH Lymph % (Auto) Lymph # Lymph # (Auto) Seg Neutrophils % Seg Neuts % (Manual) Lymphocytes % (Manual) Seg Neutrophils # Seg Neutrophils # Man Basophils % (Manual) Nucleated RBC % Lymphocytes # (Manual) Monocytes # (Manual) Basophils # (Manual) PT INR Heparin Anti-Xa Level POC ABG pO2 ABG pH ABG Hemoglobin ABG Oxyhemoglobin ABG pO2 ABG HCO3 ABG O2 Saturation ABG Base Excess ABG Potassium ABG Chloride ABG Glucose Oxyhemoglobin Sodium 149 H Potassium 2.6 L* D Chloride Carbon Dioxide 33 H BUN 23 H Creatinine 0.5 L Glucose 174 H POC Glucose 187 H 195 H Lactic Acid Calcium 8.0 L AST Phosphorus 1.60 L Total Protein Albumin C-Reactive Protein Arterial Blood Glucose Arterial Blood Ionized Calcium Urine WBC (Auto) Crossmatch 02/01/20 02/01/20 02/02/20 18:15 23:35 04:33 WBC RBC Hgb Hct MCHC RDW Plt Count MCH Lymph % (Auto) Lymph # Lymph # (Auto) Seg Neutrophils % Seg Neuts % (Manual) Lymphocytes % (Manual) Seg Neutrophils # Seg Neutrophils # Man Basophils % (Manual) Nucleated RBC % Lymphocytes # (Manual) Monocytes # (Manual) Basophils # (Manual) PT INR Heparin Anti-Xa Level POC ABG pO2 ABG pH 7.549 H ABG Hemoglobin 9.8 L ABG Oxyhemoglobin ABG pO2 ABG HCO3 ABG O2 Saturation ABG Base Excess ABG Potassium ABG Chloride ABG Glucose Oxyhemoglobin Sodium Potassium Chloride Carbon Dioxide BUN Creatinine Glucose POC Glucose 226 H 252 H Lactic Acid Calcium AST Phosphorus Total Protein Albumin C-Reactive Protein Arterial Blood Glucose Arterial Blood Ionized Calcium Urine WBC (Auto) Crossmatch 02/02/20 02/02/20 02/02/20 05:25 05:25 05:40 WBC 15.5 H RBC 2.43 L Hgb 7.6 L Hct 22.9 L MCHC RDW 23.6 H Plt Count MCH Lymph % (Auto) Lymph # Lymph # (Auto) Seg Neutrophils % Seg Neuts % (Manual) 89.0 H Lymphocytes % (Manual) 3.0 L Seg Neutrophils # Seg Neutrophils # Man 13.8 H Basophils % (Manual) Nucleated RBC % Lymphocytes # (Manual) 0.5 L Monocytes # (Manual) 0.9 H Basophils # (Manual) PT INR Heparin Anti-Xa Level POC ABG pO2 ABG pH ABG Hemoglobin ABG Oxyhemoglobin ABG pO2 ABG HCO3 ABG O2 Saturation ABG Base Excess ABG Potassium ABG Chloride ABG Glucose Oxyhemoglobin Sodium Potassium 2.6 L* Chloride Carbon Dioxide 33 H BUN 26 H Creatinine Glucose 175 H POC Glucose 181 H Lactic Acid Calcium 7.9 L AST Phosphorus Total Protein Albumin C-Reactive Protein Arterial Blood Glucose Arterial Blood Ionized Calcium Urine WBC (Auto) Crossmatch 02/02/20 02/02/20 02/02/20 11:55 14:45 17:18 WBC RBC Hgb Hct MCHC RDW Plt Count MCH Lymph % (Auto) Lymph # Lymph # (Auto) Seg Neutrophils % Seg Neuts % (Manual) Lymphocytes % (Manual) Seg Neutrophils # Seg Neutrophils # Man Basophils % (Manual) Nucleated RBC % Lymphocytes # (Manual) Monocytes # (Manual) Basophils # (Manual) PT INR Heparin Anti-Xa Level POC ABG pO2 ABG pH 7.56 H ABG Hemoglobin 7.6 L ABG Oxyhemoglobin ABG pO2 ABG HCO3 ABG O2 Saturation ABG Base Excess ABG Potassium ABG Chloride ABG Glucose Oxyhemoglobin Sodium Potassium Chloride Carbon Dioxide BUN Creatinine Glucose POC Glucose 226 H 227 H Lactic Acid Calcium AST Phosphorus Total Protein Albumin C-Reactive Protein Arterial Blood Glucose Arterial Blood Ionized Calcium Urine WBC (Auto) Crossmatch 02/02/20 02/03/20 02/03/20 20:54 00:02 05:14 WBC 18.7 H RBC 2.45 L Hgb 7.6 L Hct 23.2 L MCHC RDW 23.5 H Plt Count MCH Lymph % (Auto) Lymph # Lymph # (Auto) Seg Neutrophils % Seg Neuts % (Manual) 94.0 H Lymphocytes % (Manual) 3.0 L Seg Neutrophils # Seg Neutrophils # Man 17.6 H Basophils % (Manual) Nucleated RBC % Lymphocytes # (Manual) 0.6 L Monocytes # (Manual) Basophils # (Manual) PT INR Heparin Anti-Xa Level POC ABG pO2 ABG pH ABG Hemoglobin ABG Oxyhemoglobin ABG pO2 ABG HCO3 ABG O2 Saturation ABG Base Excess ABG Potassium ABG Chloride ABG Glucose Oxyhemoglobin Sodium Potassium 3.2 L D Chloride Carbon Dioxide BUN Creatinine Glucose POC Glucose 204 H Lactic Acid Calcium AST Phosphorus Total Protein Albumin C-Reactive Protein Arterial Blood Glucose Arterial Blood Ionized Calcium Urine WBC (Auto) Crossmatch 02/03/20 02/03/20 02/03/20 05:14 05:14 05:20 WBC RBC Hgb Hct MCHC RDW Plt Count MCH Lymph % (Auto) Lymph # Lymph # (Auto) Seg Neutrophils % Seg Neuts % (Manual) Lymphocytes % (Manual) Seg Neutrophils # Seg Neutrophils # Man Basophils % (Manual) Nucleated RBC % Lymphocytes # (Manual) Monocytes # (Manual) Basophils # (Manual) PT INR Heparin Anti-Xa Level POC ABG pO2 ABG pH ABG Hemoglobin ABG Oxyhemoglobin ABG pO2 ABG HCO3 ABG O2 Saturation ABG Base Excess ABG Potassium ABG Chloride ABG Glucose Oxyhemoglobin Sodium Potassium 3.1 L Chloride Carbon Dioxide 33 H BUN 29 H Creatinine 0.5 L Glucose 160 H POC Glucose 146 H Lactic Acid Calcium 7.9 L AST Phosphorus 2.30 L Total Protein 4.8 L Albumin 2.4 L C-Reactive Protein Arterial Blood Glucose Arterial Blood Ionized Calcium Urine WBC (Auto) Crossmatch 02/03/20 02/03/20 02/03/20 12:35 18:14 23:26 WBC RBC Hgb Hct MCHC RDW Plt Count MCH Lymph % (Auto) Lymph # Lymph # (Auto) Seg Neutrophils % Seg Neuts % (Manual) Lymphocytes % (Manual) Seg Neutrophils # Seg Neutrophils # Man Basophils % (Manual) Nucleated RBC % Lymphocytes # (Manual) Monocytes # (Manual) Basophils # (Manual) PT INR Heparin Anti-Xa Level POC ABG pO2 ABG pH ABG Hemoglobin ABG Oxyhemoglobin ABG pO2 ABG HCO3 ABG O2 Saturation ABG Base Excess ABG Potassium ABG Chloride ABG Glucose Oxyhemoglobin Sodium Potassium Chloride Carbon Dioxide BUN Creatinine Glucose POC Glucose 219 H 248 H 173 H Lactic Acid Calcium AST Phosphorus Total Protein Albumin C-Reactive Protein Arterial Blood Glucose Arterial Blood Ionized Calcium Urine WBC (Auto) Crossmatch 02/04/20 02/04/20 02/04/20 05:34 05:36 06:51 WBC RBC Hgb Hct MCHC RDW Plt Count MCH Lymph % (Auto) Lymph # Lymph # (Auto) Seg Neutrophils % Seg Neuts % (Manual) Lymphocytes % (Manual) Seg Neutrophils # Seg Neutrophils # Man Basophils % (Manual) Nucleated RBC % Lymphocytes # (Manual) Monocytes # (Manual) Basophils # (Manual) PT INR Heparin Anti-Xa Level POC ABG pO2 ABG pH ABG Hemoglobin ABG Oxyhemoglobin ABG pO2 ABG HCO3 ABG O2 Saturation ABG Base Excess ABG Potassium ABG Chloride ABG Glucose Oxyhemoglobin Sodium Potassium Chloride Carbon Dioxide BUN Creatinine Glucose POC Glucose 56 L 64 L 127 H Lactic Acid Calcium AST Phosphorus Total Protein Albumin C-Reactive Protein Arterial Blood Glucose Arterial Blood Ionized Calcium Urine WBC (Auto) Crossmatch 02/04/20 02/04/20 02/04/20 11:57 13:42 13:53 WBC 19.2 H RBC 2.48 L Hgb 7.8 L Hct 23.5 L MCHC RDW 24.2 H Plt Count MCH Lymph % (Auto) Lymph # Lymph # (Auto) Seg Neutrophils % Seg Neuts % (Manual) 97.0 H Lymphocytes % (Manual) 2.0 L Seg Neutrophils # Seg Neutrophils # Man 18.6 H Basophils % (Manual) Nucleated RBC % Lymphocytes # (Manual) 0.4 L Monocytes # (Manual) Basophils # (Manual) PT INR Heparin Anti-Xa Level POC ABG pO2 118.2 H ABG pH 7.525 H ABG Hemoglobin 8.7 L ABG Oxyhemoglobin ABG pO2 ABG HCO3 ABG O2 Saturation ABG Base Excess ABG Potassium 2.8 L ABG Chloride ABG Glucose 185 H Oxyhemoglobin Sodium Potassium Chloride Carbon Dioxide BUN Creatinine Glucose POC Glucose 224 H Lactic Acid Calcium AST Phosphorus Total Protein Albumin C-Reactive Protein Arterial Blood Glucose 185 H Arterial Blood Ionized Calcium 4.5 L Urine WBC (Auto) Crossmatch 02/04/20 02/04/20 02/04/20 13:53 18:15 23:35 WBC RBC Hgb Hct MCHC RDW Plt Count MCH Lymph % (Auto) Lymph # Lymph # (Auto) Seg Neutrophils % Seg Neuts % (Manual) Lymphocytes % (Manual) Seg Neutrophils # Seg Neutrophils # Man Basophils % (Manual) Nucleated RBC % Lymphocytes # (Manual) Monocytes # (Manual) Basophils # (Manual) PT INR Heparin Anti-Xa Level POC ABG pO2 ABG pH ABG Hemoglobin ABG Oxyhemoglobin ABG pO2 ABG HCO3 ABG O2 Saturation ABG Base Excess ABG Potassium ABG Chloride ABG Glucose Oxyhemoglobin Sodium 147 H Potassium 2.8 L* Chloride Carbon Dioxide 38 H BUN 33 H Creatinine 0.5 L Glucose 202 H POC Glucose 215 H 197 H Lactic Acid Calcium AST Phosphorus Total Protein Albumin C-Reactive Protein Arterial Blood Glucose Arterial Blood Ionized Calcium Urine WBC (Auto) Crossmatch 02/05/20 02/05/20 02/05/20 01:03 04:00 04:00 WBC 26.7 H RBC 2.59 L Hgb 8.1 L Hct 24.6 L MCHC RDW 24.1 H Plt Count MCH Lymph % (Auto) 1.6 L Lymph # Lymph # (Auto) 0.4 L Seg Neutrophils % Seg Neuts % (Manual) Lymphocytes % (Manual) Seg Neutrophils # 25.9 H Seg Neutrophils # Man Basophils % (Manual) Nucleated RBC % Lymphocytes # (Manual) Monocytes # (Manual) Basophils # (Manual) PT INR Heparin Anti-Xa Level POC ABG pO2 ABG pH ABG Hemoglobin 7.1 L ABG Oxyhemoglobin ABG pO2 50.7 L ABG HCO3 29.6 H ABG O2 Saturation 82.7 L ABG Base Excess 4.8 H ABG Potassium ABG Chloride ABG Glucose Oxyhemoglobin 81.0 L Sodium 146 H Potassium Chloride Carbon Dioxide 32 H BUN 35 H Creatinine 0.5 L Glucose 226 H POC Glucose Lactic Acid Calcium AST Phosphorus Total Protein 5.1 L Albumin 2.2 L C-Reactive Protein Arterial Blood Glucose Arterial Blood Ionized Calcium Urine WBC (Auto) Crossmatch 02/05/20 02/05/20 02/06/20 05:32 17:56 00:19 WBC RBC Hgb Hct MCHC RDW Plt Count MCH Lymph % (Auto) Lymph # Lymph # (Auto) Seg Neutrophils % Seg Neuts % (Manual) Lymphocytes % (Manual) Seg Neutrophils # Seg Neutrophils # Man Basophils % (Manual) Nucleated RBC % Lymphocytes # (Manual) Monocytes # (Manual) Basophils # (Manual) PT INR Heparin Anti-Xa Level POC ABG pO2 ABG pH ABG Hemoglobin ABG Oxyhemoglobin ABG pO2 ABG HCO3 ABG O2 Saturation ABG Base Excess ABG Potassium ABG Chloride ABG Glucose Oxyhemoglobin Sodium Potassium Chloride Carbon Dioxide BUN Creatinine Glucose POC Glucose 239 H 175 H 309 H Lactic Acid Calcium AST Phosphorus Total Protein Albumin C-Reactive Protein Arterial Blood Glucose Arterial Blood Ionized Calcium Urine WBC (Auto) Crossmatch 10/06/2602/06/20 02/06/20 04:26 04:27 05:11 WBC RBC Hgb Hct MCHC RDW Plt Count MCH Lymph % (Auto) Lymph # Lymph # (Auto) Seg Neutrophils % Seg Neuts % (Manual) Lymphocytes % (Manual) Seg Neutrophils # Seg Neutrophils # Man Basophils % (Manual) Nucleated RBC % Lymphocytes # (Manual) Monocytes # (Manual) Basophils # (Manual) PT INR Heparin Anti-Xa Level POC ABG pO2 175.3 H 157.2 H ABG pH 7.502 H 7.551 H ABG Hemoglobin 10.8 L 7.3 L ABG Oxyhemoglobin 98.3 H ABG pO2 ABG HCO3 ABG O2 Saturation ABG Base Excess ABG Potassium 3.3 L ABG Chloride 109.0 H ABG Glucose 148 H Oxyhemoglobin Sodium 148 H Potassium 3.0 L Chloride 107.3 H Carbon Dioxide 33 H BUN 33 H Creatinine 0.5 L Glucose 283 H POC Glucose Lactic Acid Calcium 7.9 L AST Phosphorus Total Protein 3.6 L D Albumin 1.2 L C-Reactive Protein Arterial Blood Glucose 148 H Arterial Blood Ionized Calcium Urine WBC (Auto) Crossmatch 02/06/20 02/06/20 02/06/20 05:40 08:45 11:52 WBC 16.3 H RBC 2.12 L Hgb 6.6 L Hct 20.3 L MCHC RDW 24.4 H Plt Count MCH Lymph % (Auto) Lymph # Lymph # (Auto) Seg Neutrophils % Seg Neuts % (Manual) 98.0 H Lymphocytes % (Manual) 1.0 L Seg Neutrophils # Seg Neutrophils # Man 16.0 H Basophils % (Manual) Nucleated RBC % Lymphocytes # (Manual) 0.2 L Monocytes # (Manual) Basophils # (Manual) PT INR Heparin Anti-Xa Level POC ABG pO2 ABG pH ABG Hemoglobin ABG Oxyhemoglobin ABG pO2 ABG HCO3 ABG O2 Saturation ABG Base Excess ABG Potassium ABG Chloride ABG Glucose Oxyhemoglobin Sodium Potassium Chloride Carbon Dioxide BUN Creatinine Glucose POC Glucose 347 H 132 H Lactic Acid Calcium AST Phosphorus Total Protein Albumin C-Reactive Protein Arterial Blood Glucose Arterial Blood Ionized Calcium Urine WBC (Auto) Crossmatch 02/06/20 02/07/20 02/07/20 18:26 00:08 05:41 WBC RBC Hgb Hct MCHC RDW Plt Count MCH Lymph % (Auto) Lymph # Lymph # (Auto) Seg Neutrophils % Seg Neuts % (Manual) Lymphocytes % (Manual) Seg Neutrophils # Seg Neutrophils # Man Basophils % (Manual) Nucleated RBC % Lymphocytes # (Manual) Monocytes # (Manual) Basophils # (Manual) PT INR Heparin Anti-Xa Level POC ABG pO2 ABG pH ABG Hemoglobin ABG Oxyhemoglobin ABG pO2 ABG HCO3 ABG O2 Saturation ABG Base Excess ABG Potassium ABG Chloride ABG Glucose Oxyhemoglobin Sodium Potassium Chloride Carbon Dioxide BUN Creatinine Glucose POC Glucose 114 H 111 H 164 H Lactic Acid Calcium AST Phosphorus Total Protein Albumin C-Reactive Protein Arterial Blood Glucose Arterial Blood Ionized Calcium Urine WBC (Auto) Crossmatch 02/07/20 02/07/20 02/07/20 11:49 17:56 23:27 WBC RBC Hgb Hct MCHC RDW Plt Count MCH Lymph % (Auto) Lymph # Lymph # (Auto) Seg Neutrophils % Seg Neuts % (Manual) Lymphocytes % (Manual) Seg Neutrophils # Seg Neutrophils # Man Basophils % (Manual) Nucleated RBC % Lymphocytes # (Manual) Monocytes # (Manual) Basophils # (Manual) PT INR Heparin Anti-Xa Level POC ABG pO2 ABG pH ABG Hemoglobin ABG Oxyhemoglobin ABG pO2 ABG HCO3 ABG O2 Saturation ABG Base Excess ABG Potassium ABG Chloride ABG Glucose Oxyhemoglobin Sodium Potassium Chloride Carbon Dioxide BUN Creatinine Glucose POC Glucose 146 H 140 H 164 H Lactic Acid Calcium AST Phosphorus Total Protein Albumin C-Reactive Protein Arterial Blood Glucose Arterial Blood Ionized Calcium Urine WBC (Auto) Crossmatch 02/08/20 02/08/20 02/08/20 03:55 04:46 04:46 WBC RBC 2.30 L Hgb 7.3 L Hct 22.0 L MCHC RDW 23.9 H Plt Count MCH Lymph % (Auto) 8.5 L Lymph # Lymph # (Auto) 0.8 L Seg Neutrophils % 87.6 H Seg Neuts % (Manual) Lymphocytes % (Manual) Seg Neutrophils # 8.7 H Seg Neutrophils # Man Basophils % (Manual) Nucleated RBC % Lymphocytes # (Manual) Monocytes # (Manual) Basophils # (Manual) PT INR Heparin Anti-Xa Level POC ABG pO2 112.8 H ABG pH 7.511 H ABG Hemoglobin 7.8 L ABG Oxyhemoglobin ABG pO2 ABG HCO3 ABG O2 Saturation ABG Base Excess ABG Potassium 2.9 L ABG Chloride ABG Glucose 112 H Oxyhemoglobin Sodium Potassium 3.1 L Chloride Carbon Dioxide 31 H BUN 29 H Creatinine 0.3 L Glucose 108 H POC Glucose Lactic Acid Calcium AST Phosphorus Total Protein Albumin C-Reactive Protein Arterial Blood Glucose 112 H Arterial Blood Ionized Calcium Urine WBC (Auto) Crossmatch 02/08/20 02/08/20 02/08/20 05:31 10:15 12:10 WBC RBC Hgb Hct MCHC RDW Plt Count MCH Lymph % (Auto) Lymph # Lymph # (Auto) Seg Neutrophils % Seg Neuts % (Manual) Lymphocytes % (Manual) Seg Neutrophils # Seg Neutrophils # Man Basophils % (Manual) Nucleated RBC % Lymphocytes # (Manual) Monocytes # (Manual) Basophils # (Manual) PT INR Heparin Anti-Xa Level POC ABG pO2 ABG pH ABG Hemoglobin ABG Oxyhemoglobin ABG pO2 ABG HCO3 ABG O2 Saturation ABG Base Excess ABG Potassium ABG Chloride ABG Glucose Oxyhemoglobin Sodium Potassium Chloride Carbon Dioxide BUN Creatinine Glucose POC Glucose 117 H 164 H 170 H Lactic Acid Calcium AST Phosphorus Total Protein Albumin C-Reactive Protein Arterial Blood Glucose Arterial Blood Ionized Calcium Urine WBC (Auto) Crossmatch 02/08/20 02/08/20 02/09/20 12:23 23:50 03:04 WBC RBC Hgb Hct MCHC RDW Plt Count MCH Lymph % (Auto) Lymph # Lymph # (Auto) Seg Neutrophils % Seg Neuts % (Manual) Lymphocytes % (Manual) Seg Neutrophils # Seg Neutrophils # Man Basophils % (Manual) Nucleated RBC % Lymphocytes # (Manual) Monocytes # (Manual) Basophils # (Manual) PT INR Heparin Anti-Xa Level POC ABG pO2 ABG pH 7.501 H ABG Hemoglobin 7.5 L ABG Oxyhemoglobin ABG pO2 ABG HCO3 ABG O2 Saturation ABG Base Excess ABG Potassium ABG Chloride ABG Glucose 143 H Oxyhemoglobin Sodium Potassium Chloride Carbon Dioxide BUN Creatinine Glucose POC Glucose 164 H 126 H Lactic Acid Calcium AST Phosphorus Total Protein Albumin C-Reactive Protein Arterial Blood Glucose 143 H Arterial Blood Ionized Calcium Urine WBC (Auto) Crossmatch 02/09/20 02/09/20 02/09/20 05:57 08:00 12:39 WBC RBC Hgb Hct MCHC RDW Plt Count MCH Lymph % (Auto) Lymph # Lymph # (Auto) Seg Neutrophils % Seg Neuts % (Manual) Lymphocytes % (Manual) Seg Neutrophils # Seg Neutrophils # Man Basophils % (Manual) Nucleated RBC % Lymphocytes # (Manual) Monocytes # (Manual) Basophils # (Manual) PT INR Heparin Anti-Xa Level POC ABG pO2 ABG pH ABG Hemoglobin ABG Oxyhemoglobin ABG pO2 ABG HCO3 ABG O2 Saturation ABG Base Excess ABG Potassium ABG Chloride ABG Glucose Oxyhemoglobin Sodium Potassium 3.3 L Chloride Carbon Dioxide 34 H BUN 27 H Creatinine 0.4 L Glucose 127 H POC Glucose 160 H 154 H Lactic Acid Calcium 8.2 L AST Phosphorus Total Protein Albumin C-Reactive Protein Arterial Blood Glucose Arterial Blood Ionized Calcium Urine WBC (Auto) Crossmatch 02/09/20 02/09/20 02/09/20 18:17 23:43 Unknown WBC RBC 2.15 L Hgb 7.0 L Hct 20.8 L MCHC RDW 23.3 H Plt Count MCH 33 H Lymph % (Auto) Lymph # Lymph # (Auto) Seg Neutrophils % Seg Neuts % (Manual) Lymphocytes % (Manual) Seg Neutrophils # Seg Neutrophils # Man Basophils % (Manual) Nucleated RBC % Lymphocytes # (Manual) Monocytes # (Manual) Basophils # (Manual) PT INR Heparin Anti-Xa Level POC ABG pO2 ABG pH ABG Hemoglobin ABG Oxyhemoglobin ABG pO2 ABG HCO3 ABG O2 Saturation ABG Base Excess ABG Potassium ABG Chloride ABG Glucose Oxyhemoglobin Sodium Potassium Chloride Carbon Dioxide BUN Creatinine Glucose POC Glucose 152 H 177 H Lactic Acid Calcium AST Phosphorus Total Protein Albumin C-Reactive Protein Arterial Blood Glucose Arterial Blood Ionized Calcium Urine WBC (Auto) Crossmatch 02/10/20 02/10/20 02/10/20 04:38 05:24 11:44 WBC RBC Hgb Hct MCHC RDW Plt Count MCH Lymph % (Auto) Lymph # Lymph # (Auto) Seg Neutrophils % Seg Neuts % (Manual) Lymphocytes % (Manual) Seg Neutrophils # Seg Neutrophils # Man Basophils % (Manual) Nucleated RBC % Lymphocytes # (Manual) Monocytes # (Manual) Basophils # (Manual) PT INR Heparin Anti-Xa Level POC ABG pO2 ABG pH 7.502 H ABG Hemoglobin 6.2 L ABG Oxyhemoglobin ABG pO2 136.0 H ABG HCO3 29.3 H ABG O2 Saturation ABG Base Excess 5.7 H ABG Potassium ABG Chloride ABG Glucose Oxyhemoglobin Sodium Potassium Chloride Carbon Dioxide BUN Creatinine Glucose POC Glucose 113 H 176 H Lactic Acid Calcium AST Phosphorus Total Protein Albumin C-Reactive Protein Arterial Blood Glucose Arterial Blood Ionized Calcium Urine WBC (Auto) Crossmatch 02/10/20 02/11/20 02/11/20 23:42 03:43 04:12 WBC RBC 2.12 L Hgb 6.9 L Hct 20.6 L MCHC RDW 23.4 H Plt Count MCH 33 H Lymph % (Auto) Lymph # Lymph # (Auto) Seg Neutrophils % 84.7 H Seg Neuts % (Manual) 83.0 H Lymphocytes % (Manual) 11.0 L Seg Neutrophils # Seg Neutrophils # Man Basophils % (Manual) Nucleated RBC % Lymphocytes # (Manual) 1.0 L Monocytes # (Manual) Basophils # (Manual) PT INR Heparin Anti-Xa Level POC ABG pO2 112.6 H ABG pH 7.480 H ABG Hemoglobin 7.2 L ABG Oxyhemoglobin ABG pO2 ABG HCO3 ABG O2 Saturation ABG Base Excess ABG Potassium ABG Chloride ABG Glucose 154 H Oxyhemoglobin Sodium Potassium Chloride Carbon Dioxide BUN Creatinine Glucose POC Glucose 149 H Lactic Acid Calcium AST Phosphorus Total Protein Albumin C-Reactive Protein Arterial Blood Glucose 154 H Arterial Blood Ionized Calcium Urine WBC (Auto) Crossmatch 02/11/20 02/11/20 02/11/20 04:12 05:50 08:22 WBC RBC Hgb Hct MCHC RDW Plt Count MCH Lymph % (Auto) Lymph # Lymph # (Auto) Seg Neutrophils % Seg Neuts % (Manual) Lymphocytes % (Manual) Seg Neutrophils # Seg Neutrophils # Man Basophils % (Manual) Nucleated RBC % Lymphocytes # (Manual) Monocytes # (Manual) Basophils # (Manual) PT INR Heparin Anti-Xa Level POC ABG pO2 ABG pH ABG Hemoglobin ABG Oxyhemoglobin ABG pO2 ABG HCO3 ABG O2 Saturation ABG Base Excess ABG Potassium ABG Chloride ABG Glucose Oxyhemoglobin Sodium 146 H Potassium Chloride Carbon Dioxide BUN 24 H Creatinine 0.4 L Glucose 168 H POC Glucose 190 H Lactic Acid Calcium 8.0 L AST Phosphorus Total Protein Albumin C-Reactive Protein Arterial Blood Glucose Arterial Blood Ionized Calcium Urine WBC (Auto) Crossmatch See Detail 02/11/20 02/11/20 02/11/20 11:41 17:33 23:40 WBC RBC Hgb Hct MCHC RDW Plt Count MCH Lymph % (Auto) Lymph # Lymph # (Auto) Seg Neutrophils % Seg Neuts % (Manual) Lymphocytes % (Manual) Seg Neutrophils # Seg Neutrophils # Man Basophils % (Manual) Nucleated RBC % Lymphocytes # (Manual) Monocytes # (Manual) Basophils # (Manual) PT INR Heparin Anti-Xa Level POC ABG pO2 ABG pH ABG Hemoglobin ABG Oxyhemoglobin ABG pO2 ABG HCO3 ABG O2 Saturation ABG Base Excess ABG Potassium ABG Chloride ABG Glucose Oxyhemoglobin Sodium Potassium Chloride Carbon Dioxide BUN Creatinine Glucose POC Glucose 260 H 132 H 54 L Lactic Acid Calcium AST Phosphorus Total Protein Albumin C-Reactive Protein Arterial Blood Glucose Arterial Blood Ionized Calcium Urine WBC (Auto) Crossmatch 02/12/20 02/12/20 02/12/20 05:16 06:45 11:48 WBC RBC Hgb 8.6 L Hct 25.2 L MCHC RDW Plt Count MCH Lymph % (Auto) Lymph # Lymph # (Auto) Seg Neutrophils % Seg Neuts % (Manual) Lymphocytes % (Manual) Seg Neutrophils # Seg Neutrophils # Man Basophils % (Manual) Nucleated RBC % Lymphocytes # (Manual) Monocytes # (Manual) Basophils # (Manual) PT INR Heparin Anti-Xa Level POC ABG pO2 ABG pH ABG Hemoglobin ABG Oxyhemoglobin ABG pO2 ABG HCO3 ABG O2 Saturation ABG Base Excess ABG Potassium ABG Chloride ABG Glucose Oxyhemoglobin Sodium Potassium Chloride Carbon Dioxide BUN Creatinine Glucose POC Glucose 127 H 163 H Lactic Acid Calcium AST Phosphorus Total Protein Albumin C-Reactive Protein Arterial Blood Glucose Arterial Blood Ionized Calcium Urine WBC (Auto) Crossmatch 02/12/20 02/12/20 02/13/20 17:25 23:53 04:30 WBC RBC Hgb Hct MCHC RDW Plt Count MCH Lymph % (Auto) Lymph # Lymph # (Auto) Seg Neutrophils % Seg Neuts % (Manual) Lymphocytes % (Manual) Seg Neutrophils # Seg Neutrophils # Man Basophils % (Manual) Nucleated RBC % Lymphocytes # (Manual) Monocytes # (Manual) Basophils # (Manual) PT INR Heparin Anti-Xa Level POC ABG pO2 ABG pH 7.463 H ABG Hemoglobin ABG Oxyhemoglobin ABG pO2 98.4 H ABG HCO3 27.7 H ABG O2 Saturation ABG Base Excess 3.7 H ABG Potassium ABG Chloride ABG Glucose Oxyhemoglobin Sodium Potassium Chloride Carbon Dioxide BUN Creatinine Glucose POC Glucose 152 H 140 H Lactic Acid Calcium AST Phosphorus Total Protein Albumin C-Reactive Protein Arterial Blood Glucose Arterial Blood Ionized Calcium Urine WBC (Auto) Crossmatch 02/13/20 02/13/20 02/13/20 04:45 04:45 05:19 WBC RBC 2.73 L Hgb 8.7 L Hct 25.6 L MCHC RDW 21.3 H Plt Count MCH Lymph % (Auto) 12.0 L Lymph # Lymph # (Auto) 1.0 L Seg Neutrophils % 82.5 H Seg Neuts % (Manual) Lymphocytes % (Manual) Seg Neutrophils # Seg Neutrophils # Man Basophils % (Manual) Nucleated RBC % Lymphocytes # (Manual) Monocytes # (Manual) Basophils # (Manual) PT INR Heparin Anti-Xa Level POC ABG pO2 ABG pH ABG Hemoglobin ABG Oxyhemoglobin ABG pO2 ABG HCO3 ABG O2 Saturation ABG Base Excess ABG Potassium ABG Chloride ABG Glucose Oxyhemoglobin Sodium Potassium 3.4 L Chloride Carbon Dioxide 31 H BUN 24 H Creatinine 0.3 L Glucose 122 H POC Glucose 127 H Lactic Acid Calcium 8.0 L AST Phosphorus Total Protein 4.2 L Albumin 2.0 L C-Reactive Protein Arterial Blood Glucose Arterial Blood Ionized Calcium Urine WBC (Auto) Crossmatch 02/13/20 02/14/20 02/14/20 23:08 04:26 04:26 WBC RBC 2.74 L Hgb 8.7 L Hct 25.8 L MCHC RDW 21.3 H Plt Count MCH Lymph % (Auto) 13.2 L Lymph # Lymph # (Auto) Seg Neutrophils % 81.4 H Seg Neuts % (Manual) Lymphocytes % (Manual) Seg Neutrophils # 8.4 H Seg Neutrophils # Man Basophils % (Manual) Nucleated RBC % Lymphocytes # (Manual) Monocytes # (Manual) Basophils # (Manual) PT INR Heparin Anti-Xa Level POC ABG pO2 ABG pH ABG Hemoglobin ABG Oxyhemoglobin ABG pO2 ABG HCO3 ABG O2 Saturation ABG Base Excess ABG Potassium ABG Chloride ABG Glucose Oxyhemoglobin Sodium Potassium 3.4 L Chloride 107.6 H Carbon Dioxide BUN 20 H Creatinine 0.3 L Glucose 170 H POC Glucose 148 H Lactic Acid Calcium 8.2 L AST Phosphorus Total Protein Albumin C-Reactive Protein Arterial Blood Glucose Arterial Blood Ionized Calcium Urine WBC (Auto) Crossmatch 02/14/20 02/14/20 02/14/20 05:05 12:08 17:37 WBC RBC Hgb Hct MCHC RDW Plt Count MCH Lymph % (Auto) Lymph # Lymph # (Auto) Seg Neutrophils % Seg Neuts % (Manual) Lymphocytes % (Manual) Seg Neutrophils # Seg Neutrophils # Man Basophils % (Manual) Nucleated RBC % Lymphocytes # (Manual) Monocytes # (Manual) Basophils # (Manual) PT INR Heparin Anti-Xa Level POC ABG pO2 ABG pH ABG Hemoglobin ABG Oxyhemoglobin ABG pO2 ABG HCO3 ABG O2 Saturation ABG Base Excess ABG Potassium ABG Chloride ABG Glucose Oxyhemoglobin Sodium Potassium Chloride Carbon Dioxide BUN Creatinine Glucose POC Glucose 182 H 156 H 144 H Lactic Acid Calcium AST Phosphorus Total Protein Albumin C-Reactive Protein Arterial Blood Glucose Arterial Blood Ionized Calcium Urine WBC (Auto) Crossmatch 02/14/20 02/15/20 02/15/20 23:36 05:44 12:11 WBC RBC Hgb Hct MCHC RDW Plt Count MCH Lymph % (Auto) Lymph # Lymph # (Auto) Seg Neutrophils % Seg Neuts % (Manual) Lymphocytes % (Manual) Seg Neutrophils # Seg Neutrophils # Man Basophils % (Manual) Nucleated RBC % Lymphocytes # (Manual) Monocytes # (Manual) Basophils # (Manual) PT INR Heparin Anti-Xa Level POC ABG pO2 ABG pH ABG Hemoglobin ABG Oxyhemoglobin ABG pO2 ABG HCO3 ABG O2 Saturation ABG Base Excess ABG Potassium ABG Chloride ABG Glucose Oxyhemoglobin Sodium Potassium Chloride Carbon Dioxide BUN Creatinine Glucose POC Glucose 183 H 203 H 140 H Lactic Acid Calcium AST Phosphorus Total Protein Albumin C-Reactive Protein Arterial Blood Glucose Arterial Blood Ionized Calcium Urine WBC (Auto) Crossmatch 02/15/20 02/16/20 02/16/20 17:23 00:12 05:09 WBC RBC Hgb 8.8 L Hct 26.0 L MCHC RDW Plt Count MCH Lymph % (Auto) Lymph # Lymph # (Auto) Seg Neutrophils % Seg Neuts % (Manual) Lymphocytes % (Manual) Seg Neutrophils # Seg Neutrophils # Man Basophils % (Manual) Nucleated RBC % Lymphocytes # (Manual) Monocytes # (Manual) Basophils # (Manual) PT INR Heparin Anti-Xa Level POC ABG pO2 ABG pH ABG Hemoglobin ABG Oxyhemoglobin ABG pO2 ABG HCO3 ABG O2 Saturation ABG Base Excess ABG Potassium ABG Chloride ABG Glucose Oxyhemoglobin Sodium Potassium Chloride Carbon Dioxide BUN Creatinine Glucose POC Glucose 170 H 133 H Lactic Acid Calcium AST Phosphorus Total Protein Albumin C-Reactive Protein Arterial Blood Glucose Arterial Blood Ionized Calcium Urine WBC (Auto) Crossmatch 02/16/20 02/16/20 02/16/20 05:09 05:21 12:22 WBC RBC Hgb Hct MCHC RDW Plt Count MCH Lymph % (Auto) Lymph # Lymph # (Auto) Seg Neutrophils % Seg Neuts % (Manual) Lymphocytes % (Manual) Seg Neutrophils # Seg Neutrophils # Man Basophils % (Manual) Nucleated RBC % Lymphocytes # (Manual) Monocytes # (Manual) Basophils # (Manual) PT INR Heparin Anti-Xa Level POC ABG pO2 ABG pH ABG Hemoglobin ABG Oxyhemoglobin ABG pO2 ABG HCO3 ABG O2 Saturation ABG Base Excess ABG Potassium ABG Chloride ABG Glucose Oxyhemoglobin Sodium Potassium Chloride Carbon Dioxide 31 H BUN 18 H Creatinine 0.3 L Glucose 152 H POC Glucose 160 H 138 H Lactic Acid Calcium 7.9 L AST Phosphorus Total Protein Albumin C-Reactive Protein Arterial Blood Glucose Arterial Blood Ionized Calcium Urine WBC (Auto) Crossmatch 02/16/20 02/17/20 02/17/20 16:35 00:01 05:22 WBC RBC Hgb Hct MCHC RDW Plt Count MCH Lymph % (Auto) Lymph # Lymph # (Auto) Seg Neutrophils % Seg Neuts % (Manual) Lymphocytes % (Manual) Seg Neutrophils # Seg Neutrophils # Man Basophils % (Manual) Nucleated RBC % Lymphocytes # (Manual) Monocytes # (Manual) Basophils # (Manual) PT INR Heparin Anti-Xa Level POC ABG pO2 ABG pH ABG Hemoglobin ABG Oxyhemoglobin ABG pO2 ABG HCO3 ABG O2 Saturation ABG Base Excess ABG Potassium ABG Chloride ABG Glucose Oxyhemoglobin Sodium Potassium Chloride Carbon Dioxide BUN Creatinine Glucose POC Glucose 142 H 173 H 126 H Lactic Acid Calcium AST Phosphorus Total Protein Albumin C-Reactive Protein Arterial Blood Glucose Arterial Blood Ionized Calcium Urine WBC (Auto) Crossmatch 02/17/20 02/17/20 02/18/20 11:35 18:08 00:15 WBC RBC Hgb Hct MCHC RDW Plt Count MCH Lymph % (Auto) Lymph # Lymph # (Auto) Seg Neutrophils % Seg Neuts % (Manual) Lymphocytes % (Manual) Seg Neutrophils # Seg Neutrophils # Man Basophils % (Manual) Nucleated RBC % Lymphocytes # (Manual) Monocytes # (Manual) Basophils # (Manual) PT INR Heparin Anti-Xa Level POC ABG pO2 ABG pH ABG Hemoglobin ABG Oxyhemoglobin ABG pO2 ABG HCO3 ABG O2 Saturation ABG Base Excess ABG Potassium ABG Chloride ABG Glucose Oxyhemoglobin Sodium Potassium Chloride Carbon Dioxide BUN Creatinine Glucose POC Glucose 113 H 136 H 160 H Lactic Acid Calcium AST Phosphorus Total Protein Albumin C-Reactive Protein Arterial Blood Glucose Arterial Blood Ionized Calcium Urine WBC (Auto) Crossmatch 02/18/20 02/18/20 02/18/20 04:43 04:43 05:30 WBC RBC 3.24 L Hgb Hct MCHC RDW 20.1 H Plt Count 455 H MCH Lymph % (Auto) Lymph # Lymph # (Auto) Seg Neutrophils % Seg Neuts % (Manual) Lymphocytes % (Manual) Seg Neutrophils # Seg Neutrophils # Man Basophils % (Manual) Nucleated RBC % Lymphocytes # (Manual) Monocytes # (Manual) Basophils # (Manual) PT INR Heparin Anti-Xa Level POC ABG pO2 ABG pH ABG Hemoglobin ABG Oxyhemoglobin ABG pO2 ABG HCO3 ABG O2 Saturation ABG Base Excess ABG Potassium ABG Chloride ABG Glucose Oxyhemoglobin Sodium Potassium Chloride Carbon Dioxide BUN Creatinine 0.3 L Glucose 118 H POC Glucose 139 H Lactic Acid Calcium AST Phosphorus Total Protein Albumin C-Reactive Protein Arterial Blood Glucose Arterial Blood Ionized Calcium Urine WBC (Auto) Crossmatch 02/18/20 02/18/20 02/19/20 11:55 17:51 00:00 WBC RBC Hgb Hct MCHC RDW Plt Count MCH Lymph % (Auto) Lymph # Lymph # (Auto) Seg Neutrophils % Seg Neuts % (Manual) Lymphocytes % (Manual) Seg Neutrophils # Seg Neutrophils # Man Basophils % (Manual) Nucleated RBC % Lymphocytes # (Manual) Monocytes # (Manual) Basophils # (Manual) PT INR Heparin Anti-Xa Level POC ABG pO2 ABG pH ABG Hemoglobin ABG Oxyhemoglobin ABG pO2 ABG HCO3 ABG O2 Saturation ABG Base Excess ABG Potassium ABG Chloride ABG Glucose Oxyhemoglobin Sodium Potassium Chloride Carbon Dioxide BUN Creatinine Glucose POC Glucose 165 H 139 H 141 H Lactic Acid Calcium AST Phosphorus Total Protein Albumin C-Reactive Protein Arterial Blood Glucose Arterial Blood Ionized Calcium Urine WBC (Auto) Crossmatch 02/19/20 02/19/20 02/20/20 05:45 12:20 05:36 WBC RBC Hgb Hct MCHC RDW Plt Count MCH Lymph % (Auto) Lymph # Lymph # (Auto) Seg Neutrophils % Seg Neuts % (Manual) Lymphocytes % (Manual) Seg Neutrophils # Seg Neutrophils # Man Basophils % (Manual) Nucleated RBC % Lymphocytes # (Manual) Monocytes # (Manual) Basophils # (Manual) PT INR Heparin Anti-Xa Level POC ABG pO2 ABG pH ABG Hemoglobin ABG Oxyhemoglobin ABG pO2 ABG HCO3 ABG O2 Saturation ABG Base Excess ABG Potassium ABG Chloride ABG Glucose Oxyhemoglobin Sodium Potassium Chloride Carbon Dioxide BUN Creatinine Glucose POC Glucose 169 H 161 H 159 H Lactic Acid Calcium AST Phosphorus Total Protein Albumin C-Reactive Protein Arterial Blood Glucose Arterial Blood Ionized Calcium Urine WBC (Auto) Crossmatch 02/20/20 02/20/20 02/20/20 08:24 08:24 11:54 WBC RBC 2.74 L Hgb 8.7 L Hct 26.4 L MCHC RDW 19.4 H Plt Count MCH Lymph % (Auto) Lymph # Lymph # (Auto) Seg Neutrophils % Seg Neuts % (Manual) 79.0 H Lymphocytes % (Manual) 12.0 L Seg Neutrophils # Seg Neutrophils # Man Basophils % (Manual) 2.0 H Nucleated RBC % Lymphocytes # (Manual) 1.0 L Monocytes # (Manual) Basophils # (Manual) 0.2 H PT INR Heparin Anti-Xa Level POC ABG pO2 ABG pH ABG Hemoglobin ABG Oxyhemoglobin ABG pO2 ABG HCO3 ABG O2 Saturation ABG Base Excess ABG Potassium ABG Chloride ABG Glucose Oxyhemoglobin Sodium 134 L Potassium Chloride Carbon Dioxide BUN Creatinine 0.3 L Glucose 136 H POC Glucose 172 H Lactic Acid Calcium 8.0 L AST Phosphorus Total Protein Albumin C-Reactive Protein Arterial Blood Glucose Arterial Blood Ionized Calcium Urine WBC (Auto) Crossmatch 02/20/20 02/21/20 02/21/20 23:59 05:34 12:39 WBC RBC Hgb Hct MCHC RDW Plt Count MCH Lymph % (Auto) Lymph # Lymph # (Auto) Seg Neutrophils % Seg Neuts % (Manual) Lymphocytes % (Manual) Seg Neutrophils # Seg Neutrophils # Man Basophils % (Manual) Nucleated RBC % Lymphocytes # (Manual) Monocytes # (Manual) Basophils # (Manual) PT INR Heparin Anti-Xa Level POC ABG pO2 ABG pH ABG Hemoglobin ABG Oxyhemoglobin ABG pO2 ABG HCO3 ABG O2 Saturation ABG Base Excess ABG Potassium ABG Chloride ABG Glucose Oxyhemoglobin Sodium Potassium Chloride Carbon Dioxide BUN Creatinine Glucose POC Glucose 117 H 159 H 133 H Lactic Acid Calcium AST Phosphorus Total Protein Albumin C-Reactive Protein Arterial Blood Glucose Arterial Blood Ionized Calcium Urine WBC (Auto) Crossmatch 02/22/20 02/22/20 02/22/20 06:14 11:40 17:57 WBC RBC Hgb Hct MCHC RDW Plt Count MCH Lymph % (Auto) Lymph # Lymph # (Auto) Seg Neutrophils % Seg Neuts % (Manual) Lymphocytes % (Manual) Seg Neutrophils # Seg Neutrophils # Man Basophils % (Manual) Nucleated RBC % Lymphocytes # (Manual) Monocytes # (Manual) Basophils # (Manual) PT INR Heparin Anti-Xa Level POC ABG pO2 ABG pH ABG Hemoglobin ABG Oxyhemoglobin ABG pO2 ABG HCO3 ABG O2 Saturation ABG Base Excess ABG Potassium ABG Chloride ABG Glucose Oxyhemoglobin Sodium Potassium Chloride Carbon Dioxide BUN Creatinine Glucose POC Glucose 139 H 147 H 131 H Lactic Acid Calcium AST Phosphorus Total Protein Albumin C-Reactive Protein Arterial Blood Glucose Arterial Blood Ionized Calcium Urine WBC (Auto) Crossmatch 02/22/20 02/23/20 02/23/20 23:50 03:16 12:07 WBC RBC Hgb Hct MCHC RDW Plt Count MCH Lymph % (Auto) Lymph # Lymph # (Auto) Seg Neutrophils % Seg Neuts % (Manual) Lymphocytes % (Manual) Seg Neutrophils # Seg Neutrophils # Man Basophils % (Manual) Nucleated RBC % Lymphocytes # (Manual) Monocytes # (Manual) Basophils # (Manual) PT INR Heparin Anti-Xa Level POC ABG pO2 ABG pH ABG Hemoglobin ABG Oxyhemoglobin ABG pO2 ABG HCO3 ABG O2 Saturation ABG Base Excess ABG Potassium ABG Chloride ABG Glucose Oxyhemoglobin Sodium Potassium Chloride Carbon Dioxide BUN Creatinine Glucose POC Glucose 137 H 115 H 134 H Lactic Acid Calcium AST Phosphorus Total Protein Albumin C-Reactive Protein Arterial Blood Glucose Arterial Blood Ionized Calcium Urine WBC (Auto) Crossmatch 02/23/20 02/23/20 02/24/20 18:29 23:33 04:20 WBC 2.3 L RBC 0.97 L Hgb 3.2 L* Hct 9.2 L* MCHC 35 H RDW 18.6 H Plt Count MCH 33 H Lymph % (Auto) Lymph # Lymph # (Auto) Seg Neutrophils % Seg Neuts % (Manual) Lymphocytes % (Manual) Seg Neutrophils # Seg Neutrophils # Man Basophils % (Manual) Nucleated RBC % Lymphocytes # (Manual) Monocytes # (Manual) Basophils # (Manual) PT INR Heparin Anti-Xa Level POC ABG pO2 ABG pH ABG Hemoglobin ABG Oxyhemoglobin ABG pO2 ABG HCO3 ABG O2 Saturation ABG Base Excess ABG Potassium ABG Chloride ABG Glucose Oxyhemoglobin Sodium Potassium Chloride Carbon Dioxide BUN Creatinine Glucose POC Glucose 119 H 140 H Lactic Acid Calcium AST Phosphorus Total Protein Albumin C-Reactive Protein Arterial Blood Glucose Arterial Blood Ionized Calcium Urine WBC (Auto) Crossmatch 02/24/20 02/24/20 02/24/20 04:20 06:01 07:02 WBC RBC 2.85 L Hgb 9.1 L D Hct 27.3 L D MCHC RDW 18.8 H Plt Count 538 H D MCH Lymph % (Auto) Lymph # Lymph # (Auto) Seg Neutrophils % Seg Neuts % (Manual) Lymphocytes % (Manual) Seg Neutrophils # Seg Neutrophils # Man Basophils % (Manual) Nucleated RBC % Lymphocytes # (Manual) Monocytes # (Manual) Basophils # (Manual) PT INR Heparin Anti-Xa Level POC ABG pO2 ABG pH ABG Hemoglobin ABG Oxyhemoglobin ABG pO2 ABG HCO3 ABG O2 Saturation ABG Base Excess ABG Potassium ABG Chloride ABG Glucose Oxyhemoglobin Sodium Potassium Chloride 111.1 H Carbon Dioxide BUN 18 H Creatinine 0.3 L Glucose 115 H POC Glucose 123 H Lactic Acid Calcium 6.6 L D AST Phosphorus Total Protein Albumin C-Reactive Protein Arterial Blood Glucose Arterial Blood Ionized Calcium Urine WBC (Auto) Crossmatch Chest x-ray: other (none today) Allied health notes reviewed: nursing
--- NOTE | 2020-02-24 14:00 | Progress Note ---
Assessment and Plan Assessment and plan: 69-year-old -[place] female with known history of dementia, and according to the does not talk much due to this. Diabetes mellitus and pulmonary embolism was admitted through the emergency room from the snf on 01/07 for decreased responsiveness, lethargy and hypotension. Patient had sepsis UTI and sacral decubitus ulcer evaluated by ID, medications optimized, patient went into acute hypoxic respiratory failure requiring intubation admitted to ICU, extubated, patient sustained cardiac arrest x2, Requiring reintubation, became vent dependent, surgery evaluated underwent trach and PEG, currently patient is awaiting LTAC/SNF placement Patient remains vent dependent, with severe metabolic and hypoxic encephalopathy. Patient has unstageable sacral decubitus ulcer status post debridement Sepsis on long-term antibiotics total 6 weeks per ID, stop date 02/27/2020 --Acute hypoxic respiratory failure; vent dependent s/p tracheostomy,02/13/2020 per surgery, trach care, ventilatory support status post extubation 02/02/2020 but had to be reintubated on 02/04 We will continue current care, pulmonary critical following --Dysphagia s/p PEG placement; continue PEG feeds per protocol --Shock/ septic shock; s/p Levophed,monitor off Levophed --s/p PEA arrest night of 01/28/2020 and 02/05/2020 s/p CPR per ACLS protocol --Anoxic/hypoxic brain injury[status post PEA cardiac arrest]; supportive care Poor prognosis, family aware --Unstageable sacral decubitus ulcer, infected/POA s/p wound debridement on 01/15. Continue wound vac , Proteus bacteremia On zosyn 4.5 g IV q8h total 6 weeks per ID stop date 02/27/2020 --Sepsis /Proteus bacteremia: Due to sacral decubitus Long-term Zosyn per ID stop date 02/27/2020[total 6 weeks] --Hypokalemia /Hypernatremia; resolved --Anemia ; received 1 unit PRBC, now Hb 8.8 -- Diabetes mellitus; Blood sugars well controlled, A1c 5.3 Accu-Chek,SSC, long-acting insulin as needed Tube feeding diet -- Hydropneumothorax, not POA Patient developed hydropneumothorax on 01/15. Surgery evaluated s/p chest tube placed on 01/15. Improved, s/p chest tube removed 01/22, extubated 02/02/2020 Reintubated 02/05/2020 , tracheostomy 02/13/2020 -- large Left pleural effusion 01/25 01/27; s/p bronchoscopy and Therapeutic suctioning of the lungs done by graphics software engineer -- UTI (urinary tract infection)Completed antibiotics --h/o Bilateral pulmonary embolism 7 months ago Repeat CTA chest and LE doppler showed no acute PE or DVT, eliquis stopped -- Dementia: Continue donepezil --Severe protein-calorie malnutrition PEG placed 01/13. PEG feeds per protocol --DVT prophylaxis; SCDs --Disposition; possible LTAC placement Closely monitor the patient and adjust management as needed Plan of care reviewed with the patient and her nurse The high probability of a clinically significant, sudden or life threatening deterioration of the [Respiratory, WELDER METAL FAB, CVs] system(s) required my full and direct attention, intervention and personal management. The aggregate critical care time was [31] minutes. This time is in addition to time spent performing reported procedures but includes the following: [x] Data Review and interpretation [x] Patient assessment and monitoring of vital signs [x] Documentation [x] Medication orders and management . Patient currently with PSV/CPAP FiO2 50%, PEEP of 6 and pressure support of 10. Continue PSV trials as tolerated and wean per pulmonary. Recall ID consultation. 02/08/2020. Patient with Proteus bacteremia likely from sacral decubitus. Continue Zosyn 4.5 g IV every 8 hours until stop date of 02/26. Patient still on mechanical ventilation AC mode rate 12, tidal volume 350, FiO2 30% and PEEP of 6. Poor prognosis. Consider hospice. Continue scopolamine for secretion control. Continue pressors to maintain MAP > 65; currently off. 02/09/2020. Continue Zosyn 4.5 g IV every 8 hours for Proteus bacteremia with end date of 02/27/2020. Continue wound care/wound VAC per surgery. Patient still on mechanical ventilation AC mode rate 12, tidal volume 350, FiO2 30% and PEEP of 6. Poor prognosis. Consider hospice. Continue scopolamine for secretion control. Currently off pressors. 02/09; evaluated by surgery, planning tracheostomy pending COVID test 02/10; possible tracheostomy today pending COVID test, surgery following 02/11; patient n.p.o. from midnight, possible tracheostomy tomorrow Received 1 unit of PRBC, Hb improved to 8.6 02/12; scheduled for tracheostomy today 02/13; trach care, bilateral upper extremity L edema and swelling, check venous Doppler 02/14; right upper extremity swelling edema, DC the line, elevate the limb 02/15;RUE venous Doppler no DVT, superficial thrombophlebitis, elevate the limb and supportive care 02/16; pending LTAC/SNF placement 02/17; pending LTAC/SNF placement 02/18; trach and PEG, on ventilatory support, awaiting LTAC placement. Sacral decubitus long-term a antibiotics Zosyn stop date 02/27/202002/19: Overnight patient experienced some hypotensive episodes. Was re suscitated with IV fluids. Doppler done over the course of the week showed a superficial right cephalic vein thrombosis. Will obtain intermittent labs this morning my understanding is that we are awaiting placement to LTAC. Patient is status post trach and PEG. 02/20; no significant change overnight, pending LTAC placement. 02/21; patient is still on Zosyn, blood pressure is within normal limit. Pending LTAC placement 02/22; patient's BP is okay. Patient is tachycardic. 02/23; no change. Patient is still on mechanical ventilation Disposition; Awaiting LTAC/SNF placement History Interval history: Patient was seen and evaluated this morning Patient has trach and on mechanical ventilator and CPAP intermittently Hospitalist Physical - Physical exam Narrative exam: Patient has a trach and on mechanical ventilator The patient appeared well nourished and normally developed. Vital signs as documented. Head exam is unremarkable. No scleral icterus . Neck is without jugular venous distension, thyromegaly, or carotid bruits. Lungs are clear to auscultation. Cardiac exam reveals regular rate and Rhythm. Abdominal exam reveals normal bowel sounds, nontender, no organomegaly. Extremities are nonedematous and both femoral and pedal pulses are normal. WELDER METAL FAB: Patient is aphasic and noncommunicative. Does not follow commands. Extremities are contracted. - Constitutional Vitals: Temp Pulse Resp BP Pulse Ox 98.7 F 101 H 24 130/73 100 02/24/20 12:00 02/24/20 13:10 02/24/20 13:10 02/24/20 12:31 02/24/20 13:10 General appearance: Present: no acute distress, well-nourished, other (Tracheostomy on vent) Results - Labs CBC & Chem 7: 02/24/20 07:02 02/24/20 04:20 Labs: Laboratory Last Values WBC 6.6 K/mm3 (4.5-11.0) 02/24/20 07:02 RBC 2.85 M/mm3 (3.65-5.03) L 02/24/20 07:02 Hgb 9.1 gm/dl (10.1-14.3) L D 02/24/20 07:02 Hct 27.3 % (30.3-42.9) L D 02/24/20 07:02 MCV 96 fl (79-97) 02/24/20 07:02 MCH 32 pg (28-32) 02/24/20 07:02 MCHC 33 % (30-34) 02/24/20 07:02 RDW 18.8 % (13.2-15.2) H 02/24/20 07:02 Plt Count 538 K/mm3 (140-440) H D 02/24/20 07:02 Lymph % (Auto) 13.2 % (13.4-35.0) L 02/14/20 04:26 [place] % (Auto) 3.6 % (0.0-7.3) 02/14/20 04:26 Eos % (Auto) 1.0 % (0.0-4.3) 02/14/20 04:26 Baso % (Auto) 0.8 % (0.0-1.8) 02/14/20 04:26 Lymph # (Auto) 1.4 K/mm3 (1.2-5.4) 02/14/20 04:26 [place] # (Auto) 0.4 K/mm3 (0.0-0.8) 02/14/20 04:26 Eos # (Auto) 0.1 K/mm3 (0.0-0.4) 02/14/20 04:26 Baso # (Auto) 0.1 K/mm3 (0.0-0.1) 02/14/20 04:26 Add Manual Diff Complete 02/20/20 08:24 Total Counted 100 02/20/20 08:24 Seg Neutrophils % 81.4 % (40.0-70.0) H 02/14/20 04:26 Seg Neuts % (Manual) 79.0 % (40.0-70.0) H 02/20/20 08:24 Band Neutrophils % 0 % 02/20/20 08:24 Lymphocytes % (Manual) 12.0 % (13.4-35.0) L 02/20/20 08:24 Reactive Lymphs % (Man) 0 % 02/20/20 08:24 Monocytes % (Manual) 4.0 % (0.0-7.3) 02/20/20 08:24 Eosinophils % (Manual) 3.0 % (0.0-4.3) 02/20/20 08:24 Basophils % (Manual) 2.0 % (0.0-1.8) H 02/20/20 08:24 Metamyelocytes % 0 % 02/20/20 08:24 Myelocytes % 0 % 02/20/20 08:24 Promyelocytes % 0 % 02/20/20 08:24 Blast Cells % 0 % 02/20/20 08:24 Nucleated RBC % Not Reportable 02/20/20 08:24 Seg Neutrophils # 8.4 K/mm3 (1.8-7.7) H 02/14/20 04:26 Seg Neutrophils # Man 6.5 K/mm3 (1.8-7.7) 02/20/20 08:24 Band Neutrophils # 0.0 K/mm3 02/20/20 08:24 Lymphocytes # (Manual) 1.0 K/mm3 (1.2-5.4) L 02/20/20 08:24 Abs React Lymphs (Man) 0.0 K/mm3 02/20/20 08:24 Monocytes # (Manual) 0.3 K/mm3 (0.0-0.8) 02/20/20 08:24 Eosinophils # (Manual) 0.2 K/mm3 (0.0-0.4) 02/20/20 08:24 Basophils # (Manual) 0.2 K/mm3 (0.0-0.1) H 02/20/20 08:24 Metamyelocytes # 0.0 K/mm3 02/20/20 08:24 Myelocytes # 0.0 K/mm3 02/20/20 08:24 Promyelocytes # 0.0 K/mm3 02/20/20 08:24 Blast Cells # 0.0 K/mm3 02/20/20 08:24 WBC Morphology Not Reportable 02/20/20 08:24 Hypersegmented Neuts Not Reportable 02/20/20 08:24 Hyposegmented Neuts Not Reportable 02/20/20 08:24 Hypogranular Neuts Not Reportable 02/20/20 08:24 Smudge Cells Not Reportable 02/20/20 08:24 Toxic Granulation Not Reportable 02/20/20 08:24 Toxic Vacuolation Not Reportable 02/20/20 08:24 Dohle Bodies Not Reportable 02/20/20 08:24 Pelger-Huet Anomaly Not Reportable 02/20/20 08:24 Lata Rods Not Reportable 02/20/20 08:24 Platelet Estimate Consistent w auto 02/20/20 08:24 Clumped Platelets Rare 02/20/20 08:24 Plt Clumps, EDTA Not Reportable 02/20/20 08:24 Large Platelets Few 02/20/20 08:24 Giant Platelets Not Reportable 02/20/20 08:24 Platelet Satelliting Not Reportable 02/20/20 08:24 Plt Morphology Comment Not Reportable 02/20/20 08:24 RBC Morphology Not Reportable 02/20/20 08:24 Dimorphic RBCs Not Reportable 02/20/20 08:24 Polychromasia Not Reportable 02/20/20 08:24 Hypochromasia Not Reportable 02/20/20 08:24 Poikilocytosis Not Reportable 02/20/20 08:24 Anisocytosis 1+ 02/20/20 08:24 Microcytosis Not Reportable 02/20/20 08:24 Macrocytosis 1+ 02/20/20 08:24 Spherocytes Not Reportable 02/20/20 08:24 Pappenheimer Bodies Not Reportable 02/20/20 08:24 Sickle Cells Not Reportable 02/20/20 08:24 Target Cells Not Reportable 02/20/20 08:24 Tear Drop Cells Not Reportable 02/20/20 08:24 Ovalocytes Not Reportable 02/20/20 08:24 Helmet Cells Not Reportable 02/20/20 08:24 Lombardi-[place] Bodies Not Reportable 02/20/20 08:24 [place] Rings Not Reportable 02/20/20 08:24 [place] Cells Not Reportable 02/20/20 08:24 Bite Cells Not Reportable 02/20/20 08:24 Crenated Cell Not Reportable 02/20/20 08:24 Elliptocytes Not Reportable 02/20/20 08:24 Acanthocytes (Spur) Not Reportable 02/20/20 08:24 Rouleaux Not Reportable 02/20/20 08:24 Hemoglobin C Crystals Not Reportable 02/20/20 08:24 Schistocytes Not Reportable 02/20/20 08:24 Malaria parasites Not Reportable 02/20/20 08:24 Gideon Bodies Not Reportable 02/20/20 08:24 Hem Pathologist Commnt No 02/20/20 08:24 APTT 33.9 Sec. (24.2-36.6) 01/26/20 16:30 PT 14.4 Sec. (12.2-14.9) 02/02/20 05:25 INR 1.11 (0.87-1.13) 02/02/20 05:25 Heparin Anti-Xa Level 0.74 U.I./ml (0.3-0.7) H 01/28/20 08:50 ABG pH 7.463 pH Units (7.350-7.450) H 02/13/20 04:30 POC ABG pCO2 38.5 mmHg (32.0-48.0) 02/11/20 03:43 ABG pCO2 39.6 mm Hg 02/13/20 04:30 POC ABG pO2 112.6 mmHg (83-108) H 02/11/20 03:43 ABG pO2 98.4 mm Hg (80.0-90.0) H 02/13/20 04:30 POC ABG HCO3 28 02/11/20 03:43 ABG HCO3 27.7 mmol/L (20.0-26.0) H 02/13/20 04:30 ABG O2 Saturation 97.7 % (95.0-99.0) 02/13/20 04:30 ABG O2 Content 19.3 (0.0-44) 02/13/20 04:30 POC ABG Base Excess 4.2 02/11/20 03:43 ABG Base Excess 3.7 mmol/L (-2.0-3.0) H 02/13/20 04:30 ABG Hemoglobin 14.4 gm/dl (12.0-16.0) 02/13/20 04:30 ABG Oxyhemoglobin 96.7 (94-98) 02/09/20 03:04 ABG Carboxyhemoglobin 1.8 % (0.0-5.0) 02/13/20 04:30 ABG Methemoglobin 0.6 % (0.0-1.5) 02/13/20 04:30 ABG Sodium 138.5 mmol/L (136.0-145.0) 02/11/20 03:43 ABG Potassium 3.4 mmol/L (3.40-4.50) 02/11/20 03:43 ABG Chloride 107.0 mmol/L (98-107) 02/11/20 03:43 ABG Glucose 154 mg/dL (65-95) H 02/11/20 03:43 Oxyhemoglobin 95.3 % (95.0-99.0) 02/13/20 04:30 Carboxyhemoglobin TNR 02/08/20 03:55 FiO2 25 % 02/13/20 04:30 Sodium 142 mmol/L (137-145) D 02/24/20 04:20 Potassium 4.0 mmol/L (3.6-5.0) 02/24/20 04:20 Chloride 111.1 mmol/L (98-107) H 02/24/20 04:20 Carbon Dioxide 25 mmol/L (22-30) 02/24/20 04:20 Anion Gap 10 mmol/L 02/24/20 04:20 BUN 18 mg/dL (7-17) H 02/24/20 04:20 Creatinine 0.3 mg/dL (0.6-1.2) L 02/24/20 04:20 Estimated GFR > 60 ml/min 02/24/20 04:20 BUN/Creatinine Ratio 60 % 02/24/20 04:20 Glucose 115 mg/dL (65-100) H 02/24/20 04:20 POC Glucose 123 (70-105) H 02/24/20 06:01 Hemoglobin A1c 5.3 % (4-6) 01/11/20 00:45 Lactic Acid 1.30 mmol/L (0.7-2.0) 01/26/20 23:27 Calcium 6.6 mg/dL (8.4-10.2) L D 02/24/20 04:20 Phosphorus 2.70 mg/dL (2.5-4.5) 02/24/20 04:20 Magnesium 2.00 mg/dL (1.7-2.3) 02/16/20 05:09 Total Bilirubin 0.20 mg/dL (0.1-1.2) 02/13/20 04:45 AST 29 units/L (5-40) 02/13/20 04:45 ALT 38 units/L (7-56) 02/13/20 04:45 Alkaline Phosphatase 109 units/L (35-129) 02/13/20 04:45 C-Reactive Protein 14.80 mg/dL (0.00-1.30) H 01/29/20 Unknown Total Protein 4.2 g/dL (6.3-8.2) L 02/13/20 04:45 Albumin 2.0 g/dL (3.9-5) L 02/13/20 04:45 Albumin/Globulin Ratio 0.9 % 02/13/20 04:45 TSH 2.440 mlU/mL (0.270-4.200) 01/10/20 10:10 Procalcitonin 1.86 ng/mL (<0.15) 01/29/20 Unknown Arterial Blood Glucose 154 mg/dL (65-95) H 02/11/20 03:43 Arterial Blood Ionized Calcium 4.6 mg/dL (4.6-5.3) 02/11/20 03:43 Urine Color Cordelia (Yellow) 01/08/20 Unknown Urine Turbidity Cloudy (Clear) 01/08/20 Unknown Urine pH 5.0 (5.0-7.0) 01/08/20 Unknown Ur Specific Dexter 1.018 (1.003-1.030) 01/08/20 Unknown Urine Protein 30 mg/dl mg/dL (Negative) 01/08/20 Unknown Urine Glucose (UA) Neg mg/dL (Negative) 01/08/20 Unknown Urine Ketones Neg mg/dL (Negative) 01/08/20 Unknown Urine Blood Mod (Negative) 01/08/20 Unknown Urine Nitrite Neg (Negative) 01/08/20 Unknown Urine Bilirubin Neg (Negative) 01/08/20 Unknown Urine Urobilinogen < 2.0 mg/dL (<2.0) 01/08/20 Unknown Ur Leukocyte Esterase Sm (Negative) 01/08/20 Unknown Urine WBC (Auto) 11.0 /HPF (0.0-6.0) H 01/08/20 Unknown Urine RBC (Auto) 7.0 /HPF (0.0-6.0) 01/08/20 Unknown U Epithel Cells (Auto) < 1.0 /HPF (0-13.0) 01/08/20 Unknown Urine Bacteria (Auto) 1+ /HPF (Negative) 01/08/20 Unknown Urine Mucus 2+ /HPF 01/08/20 Unknown Urine Yeast (Budding) 1+ /HPF 01/08/20 Unknown Vancomycin Trough 7.9 ug/mL (5.0-20.0) 01/17/20 16:04 Coronavirus (PCR) Negative (Negative) 02/10/20 10:06 Blood Type A POSITIVE 02/11/20 08:22 Antibody Screen Negative 02/11/20 08:22 Crossmatch See Detail 02/11/20 08:22 Mejía/IV: Voiding Method Indwelling Catheter IV Catheter Type [Left Wrist] INT / Saline Lock IV Catheter Type [Left Upper PICC Line arm] IV Catheter Type [Right Upper Mid-line arm] IV Catheter Type [Right Peripheral IV Forearm] Active Medications - Current Medications Current Medications: Generic Name Dose Route Start Last Admin Trade Name Freq PRN Reason Stop Dose Admin Acetaminophen 650 mg 01/08/20 23:14 02/23/20 21:29 Tylenol PO 650 mg Q4H PRN Administration Pain MILD(1-3)/Fever >100.5/GARCIA Lipase/Protease/Amylase 1 each 01/17/20 08:37 Pancreazchai Sommers 10,500 Unit FEEDTUBE PRN PRN For Clogged Feeding Tube Atorvastatin Calcium 10 mg 01/09/20 22:00 02/23/20 21:20 Atorvastatin PO 10 mg QHS BRO Administration Dextrose 0 ml 01/08/20 23:14 02/10/20 17:18 D50w (25gm) Syringe IV 10 ml Q30MIN PRN Administration Hypoglycemia Protocol Donepezil HCl 10 mg 01/09/20 22:00 02/23/20 21:20 Aricept PO 10 mg QHS BRO Administration Famotidine 20 mg 01/27/20 10:00 02/24/20 10:39 Pepcid PO 20 mg BID BRO Administration Ferrous Sulfate 308 mg 02/09/20 12:00 02/24/20 10:39 Ferrous Sulfate FEEDTUBE 308 mg DAILY BRO Administration Fluticasone Propionate 100 mcg 01/25/20 20:00 01/26/20 06:09 Flonase NS 100 mcg QDAY PRN Administration Nasal Congestion Glycopyrrolate 2 mg 02/18/20 22:00 02/24/20 10:39 Glycopyrrolate PO 2 mg BID BRO Administration Heparin Sodium (Porcine) 5,000 unit 01/28/20 10:00 02/24/20 10:38 Heparin SUB-Q 5,000 unit Q12HR BRO Administration Hydrophilic Ointment 1 applic 01/28/20 10:57 Vaseline Lip Therapy TP Q2HR PRN Dry Lips Piperacillin Sod/Tazobactam Sod 4.5 gm in 100 mls @ 200 mls/hr 01/19/20 14:00 02/24/20 05:34 Zosyn/Ns 4.5gm/100ml IV 02/27/20 22:29 200 mls/hr Q8HR BRO Administration Protocol Norepinephrine 4 mg in 250 mls @ 7.5 mls/hr 02/19/20 22:00 Levophed Drip 4 Mg/Ns 250 Ml IV TITR BRO Protocol 2 MCG/MIN Sodium Chloride 250 mls @ 10 mls/hr 02/23/20 12:07 Nacl 0.9% 250ml IV PRN PRN FOR SECONDARY LINE/ANTIBIOTICS Insulin Human Regular 0 unit 01/27/20 12:00 02/24/20 12:22 Humulin R SUB-Q Not Given Q6HR BRO Protocol Loperamide HCl 2 mg 02/14/20 12:00 02/14/20 16:48 Loperamide PO 2 mg Q2H PRN Administration Diarrhea Magnesium Hydroxide 30 ml 01/08/20 23:14 Milk Of Magnesia PO Q4H PRN Constipation Metoprolol Tartrate 12.5 mg 02/24/20 10:00 02/24/20 10:37 Metoprolol PO 12.5 mg BID BRO Administration Mirtazapine 15 mg 01/09/20 22:00 02/23/20 21:20 Remeron PO 15 mg QHS BRO Administration Multi-Ingred Cream/Lotion/Oil/Oint 1 applic 01/28/20 10:57 Artificial Tears Ophth Oint OU Q4HR PRN Dry Eye(s) Multivitamins 5 ml 02/09/20 12:00 02/24/20 10:38 Centrum Liq PO 5 ml QDAY BRO Administration Ondansetron HCl 4 mg 01/08/20 23:14 Zofran IV Q8H PRN Nausea And Vomiting Oxycodone/Acetaminophen 1 tab 02/17/20 13:28 02/24/20 05:34 Percocet 5/325 PO 1 tab Q4H PRN Administration Pain, Moderate (4-6) Scopolamine 1 each 02/05/20 10:00 02/23/20 10:20 Transderm-Scop TD 1 each Q3D BRO Administration Simple Syrup 15 ml 01/17/20 08:37 Simple Syrup FEEDTUBE PRN PRN Hypoglycemia Simple Syrup 30 ml 01/17/20 08:37 02/11/20 23:43 Simple Syrup FEEDTUBE 30 ml PRN PRN Administration Hypoglycemia Sodium Bicarbonate 325 mg 01/17/20 08:37 Sodium Bicarbonate FEEDTUBE PRN PRN For Clogged Feeding Tube Sodium Chloride 10 ml 01/09/20 10:00 02/24/20 10:39 Sodium Chloride Flush Syringe 10 Ml IV 10 ml BID BRO Administration Sodium Chloride 10 ml 01/08/20 23:14 Sodium Chloride Flush Syringe 10 Ml IV PRN PRN LINE FLUSH Trazodone HCl 25 mg 01/09/20 22:00 02/23/20 21:20 Desyrel PO 25 mg QHS BRO Administration Nutrition/Malnutrition Assess - Dietary Evaluation Nutrition/Malnutrition Findings: Nutrition Notes Start: 01/09/20 12:13 Freq: Status: Active Protocol: Document 02/24/20 11:03 AL (Rec: 02/24/20 11:13 AL [email or web address]) Co-Sign 02/24/20 11:03 Nutrition Notes Initial or Follow up Reassessment Current Diagnosis Decubitus(Pressure Ulcer), Diabetes,Sepsis Other Pertinent Diagnosis UTI, dementia, PE, Sacral wound Current Diet Vital AF 1.2 at 50ml/hr Labs/Tests Reviewed Pertinent Medications Reviewed Height 5 ft 2 in Weight 63.1 kg [place] Body Weight (kg) 50.00 BMI 25.4 Weight Status Overweight Subjective/Other Information RD FU for stalbe TF. TF still running at 50 ml/hr (goal rate ). No issues with TF noted. Percent of energy/protein needs met: 91%/100% Burn Absent Trauma Absent Current % PO Negligible Minimum of two criteria Yes Fluid Accumulation Moderate to Severe (severe) Reduced Vice President Underwriting Strength Measurably Reduced (severe) #3 Nutrition Diagnosis Malnutrition Diagnosis Progress(for reassessment Continues documentation) #2 Nutrition Diagnosis Inadequate oral intake Diagnosis Progress(for reassessment Continues documentation) #1 Nutrition Diagnosis Increased nutrient needs ( specify in comment below) Comments: protein Diagnosis Progress(for reassessment Continues documentation) Is patient on ventilator? Yes Is Patient Ambulatory and/or Out of Bed No REE-([facility]-confined to bed) 1331.064 Kcal/Kg value to use for calculation 22 Approximate Energy Requirements Using 1388 kcal/Kg Calculation Used for Recommendations Kcal/kg Additional Notes Pro: 81-98 g (1.25-1.5 g/kg) Fluid: 1ml/kcal Nutrition Intervention Change Diet Order: Continue Nutrition Support: Vital AF 1.2 at 50ml/hr Flush 250ml q4h per MD Kcal 1,440 Protein (gm) 90 Fluid (mL) 973 Goal #1 TF tolerance Goal #2 Meet at least 80% of kcal and protein needs via TF Goal #3 Wound healing Anticipated Discharge Needs: Continue TF Follow-Up By: 02/27/20 Additional Comments F/U for stable TF
[2020-02-24] MEDS: SODIUM CHLORIDE 0.9% 250ML 250 ML IV PRN (14:03)
[2020-02-24] MEDS: DONEPEZIL 10 MG TAB PO SCH (21:27)
[2020-02-24] MEDS: traZODone 50 MG TAB PO SCH (21:28)
[2020-02-24] MEDS: MIRTAZAPINE 15 MG TAB PO SCH (21:28)
[2020-02-25] MEDS: INSULIN REGULAR, HUMAN 100 UNIT/ML 3ML VIAL SUB-Q SCH ×4 (00:36→18:26)
[2020-02-25] MEDS: PIPERACIL/TAZOBACTA 4.5/NS 100 4.5 GM/100 ML VIAL IV SCH ×3 (05:40→21:32)
--- NOTE | 2020-02-25 07:46 | Progress Note ---
Assessment and Plan Assessment and plan: 69-year-old -Greek female with known history of dementia, and according to the does not talk much due to this. Diabetes mellitus and pulmonary embolism was admitted through the emergency room from the halfway on 01/07 for decreased responsiveness, lethargy and hypotension. Patient had sepsis UTI and sacral decubitus ulcer evaluated by ID, medications optimized, patient went into acute hypoxic respiratory failure requiring intubation admitted to ICU, extubated, patient sustained cardiac arrest x2, Requiring reintubation, became vent dependent, surgery evaluated underwent trach and PEG, currently patient is awaiting LTAC/SNF placement Patient remains vent dependent, with severe metabolic and hypoxic encephalopathy. Patient has unstageable sacral decubitus ulcer status post debridement Sepsis on long-term antibiotics total 6 weeks per ID, stop date 02/27/2020 --Acute hypoxic respiratory failure; vent dependent s/p tracheostomy,02/13/2020 per surgery, trach care, ventilatory support status post extubation 02/02/2020 but had to be reintubated on 02/04 We will continue current care, pulmonary critical following --Dysphagia s/p PEG placement; continue PEG feeds per protocol --Shock/ septic shock; s/p Levophed,monitor off Levophed --s/p PEA arrest night of 01/28/2020 and 02/05/2020 s/p CPR per ACLS protocol --Anoxic/hypoxic brain injury[status post PEA cardiac arrest]; supportive care Poor prognosis, family aware --Unstageable sacral decubitus ulcer, infected/POA s/p wound debridement on 01/15. Continue wound vac , Proteus bacteremia On zosyn 4.5 g IV q8h total 6 weeks per ID stop date 02/27/2020 --Sepsis /Proteus bacteremia: Due to sacral decubitus Long-term Zosyn per ID stop date 02/27/2020[total 6 weeks] --Hypokalemia /Hypernatremia; resolved --Anemia ; received 1 unit PRBC, now Hb 8.8 -- Diabetes mellitus; Blood sugars well controlled, A1c 5.3 Accu-Chek,SSC, long-acting insulin as needed Tube feeding diet -- Hydropneumothorax, not POA Patient developed hydropneumothorax on 01/15. Surgery evaluated s/p chest tube placed on 01/15. Improved, s/p chest tube removed 01/22, extubated 02/02/2020 Reintubated 02/05/2020 , tracheostomy 02/13/2020 -- large Left pleural effusion 01/25 01/27; s/p bronchoscopy and Therapeutic suctioning of the lungs done by shearing machine operator -- UTI (urinary tract infection)Completed antibiotics --h/o Bilateral pulmonary embolism 7 months ago Repeat CTA chest and LE doppler showed no acute PE or DVT, eliquis stopped -- Dementia: Continue donepezil --Severe protein-calorie malnutrition PEG placed 01/13. PEG feeds per protocol --DVT prophylaxis; SCDs --Disposition; possible LTAC placement Closely monitor the patient and adjust management as needed Plan of care reviewed with the patient and her nurse The high probability of a clinically significant, sudden or life threatening deterioration of the [Respiratory, ROAD GRADER, CVs] system(s) required my full and direct attention, intervention and personal management. The aggregate critical care time was [31] minutes. This time is in addition to time spent performing reported procedures but includes the following: [x] Data Review and interpretation [x] Patient assessment and monitoring of vital signs [x] Documentation [x] Medication orders and management . Patient currently with PSV/CPAP FiO2 50%, PEEP of 6 and pressure support of 10. Continue PSV trials as tolerated and wean per pulmonary. Recall ID consultation. 02/08/2020. Patient with Proteus bacteremia likely from sacral decubitus. Continue Zosyn 4.5 g IV every 8 hours until stop date of 02/26. Patient still on mechanical ventilation AC mode rate 12, tidal volume 350, FiO2 30% and PEEP of 6. Poor prognosis. Consider hospice. Continue scopolamine for secretion control. Continue pressors to maintain MAP > 65; currently off. 02/09/2020. Continue Zosyn 4.5 g IV every 8 hours for Proteus bacteremia with end date of 02/27/2020. Continue wound care/wound VAC per surgery. Patient still on mechanical ventilation AC mode rate 12, tidal volume 350, FiO2 30% and PEEP of 6. Poor prognosis. Consider hospice. Continue scopolamine for secretion control. Currently off pressors. 02/09; evaluated by surgery, planning tracheostomy pending COVID test 02/10; possible tracheostomy today pending COVID test, surgery following 02/11; patient n.p.o. from midnight, possible tracheostomy tomorrow Received 1 unit of PRBC, Hb improved to 8.6 02/12; scheduled for tracheostomy today 02/13; trach care, bilateral upper extremity L edema and swelling, check venous Doppler 02/14; right upper extremity swelling edema, DC the line, elevate the limb 02/15;RUE venous Doppler no DVT, superficial thrombophlebitis, elevate the limb and supportive care 02/16; pending LTAC/SNF placement 02/17; pending LTAC/SNF placement 02/18; trach and PEG, on ventilatory support, awaiting LTAC placement. Sacral decubitus long-term a antibiotics Zosyn stop date 02/27/202002/19: Overnight patient experienced some hypotensive episodes. Was re suscitated with IV fluids. Doppler done over the course of the week showed a superficial right cephalic vein thrombosis. Will obtain intermittent labs this morning my understanding is that we are awaiting placement to LTAC. Patient is status post trach and PEG. 02/20; no significant change overnight, pending LTAC placement. 02/21; patient is still on Zosyn, blood pressure is within normal limit. Pending LTAC placement 02/22; patient's BP is okay. Patient is tachycardic. 02/23; no change. Patient is still on mechanical ventilation 02/24; patient is critically sick, no significant change. Patient is on mechanical ventilation. Disposition; Awaiting LTAC/SNF placement History Interval history: Patient was seen and evaluated this morning Patient has trach and on mechanical ventilator and CPAP intermittently Hospitalist Physical - Physical exam Narrative exam: Patient has a trach and on mechanical ventilator The patient appeared well nourished and normally developed. Vital signs as documented. Head exam is unremarkable. No scleral icterus . Neck is without jugular venous distension, thyromegaly, or carotid bruits. Lungs are clear to auscultation. Cardiac exam reveals regular rate and Rhythm. Abdominal exam reveals normal bowel sounds, nontender, no organomegaly. Extremities are nonedematous and both femoral and pedal pulses are normal. ROAD GRADER: Patient is aphasic and noncommunicative. Does not follow commands. Extremities are contracted. - Constitutional Vitals: Temp Pulse Resp BP Pulse Ox 98.3 F 94 H 16 116/53 100 02/25/20 04:00 02/25/20 06:00 02/25/20 06:00 02/25/20 06:00 02/25/20 06:00 General appearance: Present: no acute distress, well-nourished, other (Tracheostomy on vent) Results - Labs CBC & Chem 7: 02/24/20 07:02 02/24/20 04:20 Labs: Laboratory Last Values WBC 6.6 K/mm3 (4.5-11.0) 02/24/20 07:02 RBC 2.85 M/mm3 (3.65-5.03) L 02/24/20 07:02 Hgb 9.1 gm/dl (10.1-14.3) L D 02/24/20 07:02 Hct 27.3 % (30.3-42.9) L D 02/24/20 07:02 MCV 96 fl (79-97) 02/24/20 07:02 MCH 32 pg (28-32) 02/24/20 07:02 MCHC 33 % (30-34) 02/24/20 07:02 RDW 18.8 % (13.2-15.2) H 02/24/20 07:02 Plt Count 538 K/mm3 (140-440) H D 02/24/20 07:02 Lymph % (Auto) 13.2 % (13.4-35.0) L 02/14/20 04:26 [place] % (Auto) 3.6 % (0.0-7.3) 02/14/20 04:26 Eos % (Auto) 1.0 % (0.0-4.3) 02/14/20 04:26 Baso % (Auto) 0.8 % (0.0-1.8) 02/14/20 04:26 Lymph # (Auto) 1.4 K/mm3 (1.2-5.4) 02/14/20 04:26 [place] # (Auto) 0.4 K/mm3 (0.0-0.8) 02/14/20 04:26 Eos # (Auto) 0.1 K/mm3 (0.0-0.4) 02/14/20 04:26 Baso # (Auto) 0.1 K/mm3 (0.0-0.1) 02/14/20 04:26 Add Manual Diff Complete 02/20/20 08:24 Total Counted 100 02/20/20 08:24 Seg Neutrophils % 81.4 % (40.0-70.0) H 02/14/20 04:26 Seg Neuts % (Manual) 79.0 % (40.0-70.0) H 02/20/20 08:24 Band Neutrophils % 0 % 02/20/20 08:24 Lymphocytes % (Manual) 12.0 % (13.4-35.0) L 02/20/20 08:24 Reactive Lymphs % (Man) 0 % 02/20/20 08:24 Monocytes % (Manual) 4.0 % (0.0-7.3) 02/20/20 08:24 Eosinophils % (Manual) 3.0 % (0.0-4.3) 02/20/20 08:24 Basophils % (Manual) 2.0 % (0.0-1.8) H 02/20/20 08:24 Metamyelocytes % 0 % 02/20/20 08:24 Myelocytes % 0 % 02/20/20 08:24 Promyelocytes % 0 % 02/20/20 08:24 Blast Cells % 0 % 02/20/20 08:24 Nucleated RBC % Not Reportable 02/20/20 08:24 Seg Neutrophils # 8.4 K/mm3 (1.8-7.7) H 02/14/20 04:26 Seg Neutrophils # Man 6.5 K/mm3 (1.8-7.7) 02/20/20 08:24 Band Neutrophils # 0.0 K/mm3 02/20/20 08:24 Lymphocytes # (Manual) 1.0 K/mm3 (1.2-5.4) L 02/20/20 08:24 Abs React Lymphs (Man) 0.0 K/mm3 02/20/20 08:24 Monocytes # (Manual) 0.3 K/mm3 (0.0-0.8) 02/20/20 08:24 Eosinophils # (Manual) 0.2 K/mm3 (0.0-0.4) 02/20/20 08:24 Basophils # (Manual) 0.2 K/mm3 (0.0-0.1) H 02/20/20 08:24 Metamyelocytes # 0.0 K/mm3 02/20/20 08:24 Myelocytes # 0.0 K/mm3 02/20/20 08:24 Promyelocytes # 0.0 K/mm3 02/20/20 08:24 Blast Cells # 0.0 K/mm3 02/20/20 08:24 WBC Morphology Not Reportable 02/20/20 08:24 Hypersegmented Neuts Not Reportable 02/20/20 08:24 Hyposegmented Neuts Not Reportable 02/20/20 08:24 Hypogranular Neuts Not Reportable 02/20/20 08:24 Smudge Cells Not Reportable 02/20/20 08:24 Toxic Granulation Not Reportable 02/20/20 08:24 Toxic Vacuolation Not Reportable 02/20/20 08:24 Dohle Bodies Not Reportable 02/20/20 08:24 Pelger-Huet Anomaly Not Reportable 02/20/20 08:24 Lata Rods Not Reportable 02/20/20 08:24 Platelet Estimate Consistent w auto 02/20/20 08:24 Clumped Platelets Rare 02/20/20 08:24 Plt Clumps, EDTA Not Reportable 02/20/20 08:24 Large Platelets Few 02/20/20 08:24 Giant Platelets Not Reportable 02/20/20 08:24 Platelet Satelliting Not Reportable 02/20/20 08:24 Plt Morphology Comment Not Reportable 02/20/20 08:24 RBC Morphology Not Reportable 02/20/20 08:24 Dimorphic RBCs Not Reportable 02/20/20 08:24 Polychromasia Not Reportable 02/20/20 08:24 Hypochromasia Not Reportable 02/20/20 08:24 Poikilocytosis Not Reportable 02/20/20 08:24 Anisocytosis 1+ 02/20/20 08:24 Microcytosis Not Reportable 02/20/20 08:24 Macrocytosis 1+ 02/20/20 08:24 Spherocytes Not Reportable 02/20/20 08:24 Pappenheimer Bodies Not Reportable 02/20/20 08:24 Sickle Cells Not Reportable 02/20/20 08:24 Target Cells Not Reportable 02/20/20 08:24 Tear Drop Cells Not Reportable 02/20/20 08:24 Ovalocytes Not Reportable 02/20/20 08:24 Helmet Cells Not Reportable 02/20/20 08:24 Lombardi-Arden Bodies Not Reportable 02/20/20 08:24 Vesper Rings Not Reportable 02/20/20 08:24 Onaway Cells Not Reportable 02/20/20 08:24 Bite Cells Not Reportable 02/20/20 08:24 Crenated Cell Not Reportable 02/20/20 08:24 Elliptocytes Not Reportable 02/20/20 08:24 Acanthocytes (Spur) Not Reportable 02/20/20 08:24 Rouleaux Not Reportable 02/20/20 08:24 Hemoglobin C Crystals Not Reportable 02/20/20 08:24 Schistocytes Not Reportable 02/20/20 08:24 Malaria parasites Not Reportable 02/20/20 08:24 Gideon Bodies Not Reportable 02/20/20 08:24 Hem Pathologist Commnt No 02/20/20 08:24 APTT 33.9 Sec. (24.2-36.6) 01/26/20 16:30 PT 14.4 Sec. (12.2-14.9) 02/02/20 05:25 INR 1.11 (0.87-1.13) 02/02/20 05:25 Heparin Anti-Xa Level 0.74 U.I./ml (0.3-0.7) H 01/28/20 08:50 ABG pH 7.497 (7.320-7.450) H 02/24/20 13:39 POC ABG pCO2 37.3 mmHg (32.0-48.0) 02/24/20 13:39 ABG pCO2 39.6 mm Hg 02/13/20 04:30 POC ABG pO2 108.0 mmHg (83-108) 02/24/20 13:39 ABG pO2 98.4 mm Hg (80.0-90.0) H 02/13/20 04:30 POC ABG HCO3 28.2 02/24/20 13:39 ABG HCO3 27.7 mmol/L (20.0-26.0) H 02/13/20 04:30 ABG O2 Saturation 97.7 % (95.0-99.0) 02/13/20 04:30 ABG O2 Content 19.3 (0.0-44) 02/13/20 04:30 POC ABG Base Excess 4.8 02/24/20 13:39 ABG Base Excess 3.7 mmol/L (-2.0-3.0) H 02/13/20 04:30 ABG Hemoglobin 9.9 (12.0-17.5) L 02/24/20 13:39 ABG Oxyhemoglobin 96.7 (94-98) 02/09/20 03:04 ABG Carboxyhemoglobin 1.8 % (0.0-5.0) 02/13/20 04:30 ABG Methemoglobin 0.6 % (0.0-1.5) 02/13/20 04:30 ABG Sodium 135.4 mmol/L (136.0-145.0) L 02/24/20 13:39 ABG Potassium 3.8 mmol/L (3.40-4.50) 02/24/20 13:39 ABG Chloride 106.0 mmol/L (98-107) 02/24/20 13:39 ABG Glucose 133 mg/dL (65-95) H 02/24/20 13:39 Oxyhemoglobin 95.3 % (95.0-99.0) 02/13/20 04:30 Carboxyhemoglobin TNR 02/08/20 03:55 FiO2 25.0 02/24/20 13:39 Sodium 142 mmol/L (137-145) D 02/24/20 04:20 Potassium 4.0 mmol/L (3.6-5.0) 02/24/20 04:20 Chloride 111.1 mmol/L (98-107) H 02/24/20 04:20 Carbon Dioxide 25 mmol/L (22-30) 02/24/20 04:20 Anion Gap 10 mmol/L 02/24/20 04:20 BUN 18 mg/dL (7-17) H 02/24/20 04:20 Creatinine 0.3 mg/dL (0.6-1.2) L 02/24/20 04:20 Estimated GFR > 60 ml/min 02/24/20 04:20 BUN/Creatinine Ratio 60 % 02/24/20 04:20 Glucose 115 mg/dL (65-100) H 02/24/20 04:20 POC Glucose 139 mg/dL (70-105) H 02/25/20 06:01 Hemoglobin A1c 5.3 % (4-6) 01/11/20 00:45 Lactic Acid 1.30 mmol/L (0.7-2.0) 01/26/20 23:27 Calcium 6.6 mg/dL (8.4-10.2) L D 02/24/20 04:20 Phosphorus 2.70 mg/dL (2.5-4.5) 02/24/20 04:20 Magnesium 2.00 mg/dL (1.7-2.3) 02/16/20 05:09 Total Bilirubin 0.20 mg/dL (0.1-1.2) 02/13/20 04:45 AST 29 units/L (5-40) 02/13/20 04:45 ALT 38 units/L (7-56) 02/13/20 04:45 Alkaline Phosphatase 109 units/L (35-129) 02/13/20 04:45 C-Reactive Protein 14.80 mg/dL (0.00-1.30) H 01/29/20 Unknown Total Protein 4.2 g/dL (6.3-8.2) L 02/13/20 04:45 Albumin 2.0 g/dL (3.9-5) L 02/13/20 04:45 Albumin/Globulin Ratio 0.9 % 02/13/20 04:45 TSH 2.440 mlU/mL (0.270-4.200) 01/10/20 10:10 Procalcitonin 1.86 ng/mL (<0.15) 01/29/20 Unknown Arterial Blood Glucose 133 mg/dL (65-95) H 02/24/20 13:39 Arterial Blood Ionized Calcium 4.7 mg/dL (4.6-5.3) 02/24/20 13:39 Urine Color [place] (Yellow) 01/08/20 Unknown Urine Turbidity Cloudy (Clear) 01/08/20 Unknown Urine pH 5.0 (5.0-7.0) 01/08/20 Unknown Ur Specific [place] 1.018 (1.003-1.030) 01/08/20 Unknown Urine Protein 30 mg/dl mg/dL (Negative) 01/08/20 Unknown Urine Glucose (UA) Neg mg/dL (Negative) 01/08/20 Unknown Urine Ketones Neg mg/dL (Negative) 01/08/20 Unknown Urine Blood Mod (Negative) 01/08/20 Unknown Urine Nitrite Neg (Negative) 01/08/20 Unknown Urine Bilirubin Neg (Negative) 01/08/20 Unknown Urine Urobilinogen < 2.0 mg/dL (<2.0) 01/08/20 Unknown Ur Leukocyte Esterase Sm (Negative) 01/08/20 Unknown Urine WBC (Auto) 11.0 /HPF (0.0-6.0) H 01/08/20 Unknown Urine RBC (Auto) 7.0 /HPF (0.0-6.0) 01/08/20 Unknown U Epithel Cells (Auto) < 1.0 /HPF (0-13.0) 01/08/20 Unknown Urine Bacteria (Auto) 1+ /HPF (Negative) 01/08/20 Unknown Urine Mucus 2+ /HPF 01/08/20 Unknown Urine Yeast (Budding) 1+ /HPF 01/08/20 Unknown Vancomycin Trough 7.9 ug/mL (5.0-20.0) 01/17/20 16:04 Coronavirus (PCR) Negative (Negative) 02/10/20 10:06 Blood Type A POSITIVE 02/11/20 08:22 Antibody Screen Negative 02/11/20 08:22 Crossmatch See Detail 02/11/20 08:22 Mejía/IV: Voiding Method Indwelling Catheter IV Catheter Type [Left Wrist] INT / Saline Lock IV Catheter Type [Left Upper PICC Line arm] IV Catheter Type [Right Upper Mid-line arm] IV Catheter Type [Right Peripheral IV Forearm] Active Medications - Current Medications Current Medications: Generic Name Dose Route Start Last Admin Trade Name Freq PRN Reason Stop Dose Admin Acetaminophen 650 mg 01/08/20 23:14 02/23/20 21:29 Tylenol PO 650 mg Q4H PRN Administration Pain MILD(1-3)/Fever >100.5/GARCIA Lipase/Protease/Amylase 1 each 01/17/20 08:[address] 10,500 Unit FEEDTUBE PRN PRN For Clogged Feeding Tube Atorvastatin Calcium 10 mg 01/09/20 22:00 02/24/20 21:27 Atorvastatin PO 10 mg QHS BRO Administration Dextrose 0 ml 01/08/20 23:14 02/10/20 17:18 D50w (25gm) Syringe IV 10 ml Q30MIN PRN Administration Hypoglycemia Protocol Donepezil HCl 10 mg 01/09/20 22:00 02/24/20 21:27 Aricept PO 10 mg QHS BRO Administration Famotidine 20 mg 01/27/20 10:00 02/24/20 21:28 Pepcid PO 20 mg BID BRO Administration Ferrous Sulfate 308 mg 02/09/20 12:00 02/24/20 10:39 Ferrous Sulfate FEEDTUBE 308 mg DAILY BRO Administration Fluticasone Propionate 100 mcg 01/25/20 20:00 01/26/20 06:09 Flonase NS 100 mcg QDAY PRN Administration Nasal Congestion Glycopyrrolate 2 mg 02/18/20 22:00 02/24/20 21:28 Glycopyrrolate PO 2 mg BID BRO Administration Heparin Sodium (Porcine) 5,000 unit 01/28/20 10:00 02/24/20 21:27 Heparin SUB-Q 5,000 unit Q12HR BRO Administration Hydrophilic Ointment 1 applic 01/28/20 10:57 Vaseline Lip Therapy TP Q2HR PRN Dry Lips Piperacillin Sod/Tazobactam Sod 4.5 gm in 100 mls @ 200 mls/hr 01/19/20 14:00 02/25/20 06:13 Zosyn/Ns 4.5gm/100ml IV 02/27/20 22:29 Infused Q8HR BRO Infusion Protocol Norepinephrine 4 mg in 250 mls @ 7.5 mls/hr 02/19/20 22:00 Levophed Drip 4 Mg/Ns 250 Ml IV TITR BRO Protocol 2 MCG/MIN Sodium Chloride 250 mls @ 10 mls/hr 02/23/20 12:07 02/24/20 19:35 Nacl 0.9% 250ml IV 10 mls/hr PRN PRN Infusion FOR SECONDARY LINE/ANTIBIOTICS Insulin Human Regular 0 unit 01/27/20 12:00 02/25/20 06:13 Humulin R SUB-Q Not Given Q6HR [facility] Protocol Loperamide HCl 2 mg 02/14/20 12:00 02/14/20 16:48 Loperamide PO 2 mg Q2H PRN Administration Diarrhea Magnesium Hydroxide 30 ml 01/08/20 23:14 Milk Of Magnesia PO Q4H PRN Constipation Metoprolol Tartrate 12.5 mg 02/24/20 10:00 02/24/20 21:27 Metoprolol PO 12.5 mg BID BRO Administration Mirtazapine 15 mg 01/09/20 22:00 02/24/20 21:28 Remeron PO 15 mg QHS BRO Administration Multi-Ingred Cream/Lotion/Oil/Oint 1 applic 01/28/20 10:57 Artificial Tears Ophth Oint OU Q4HR PRN Dry Eye(s) Multivitamins 5 ml 02/09/20 12:00 02/24/20 10:38 Centrum Liq PO 5 ml QDAY BRO Administration Ondansetron HCl 4 mg 01/08/20 23:14 Zofran IV Q8H PRN Nausea And Vomiting Oxycodone/Acetaminophen 1 tab 02/17/20 13:28 02/24/20 05:34 Percocet 5/325 PO 1 tab Q4H PRN Administration Pain, Moderate (4-6) Scopolamine 1 each 02/05/20 10:00 02/23/20 10:20 Transderm-Scop TD 1 each Q3D BRO Administration Simple Syrup 15 ml 01/17/20 08:37 Simple Syrup FEEDTUBE PRN PRN Hypoglycemia Simple Syrup 30 ml 01/17/20 08:37 02/11/20 23:43 Simple Syrup FEEDTUBE 30 ml PRN PRN Administration Hypoglycemia Sodium Bicarbonate 325 mg 01/17/20 08:37 Sodium Bicarbonate FEEDTUBE PRN PRN For Clogged Feeding Tube Sodium Chloride 10 ml 01/09/20 10:00 02/24/20 21:28 Sodium Chloride Flush Syringe 10 Ml IV 10 ml BID BRO Administration Sodium Chloride 10 ml 01/08/20 23:14 Sodium Chloride Flush Syringe 10 Ml IV PRN PRN LINE FLUSH Trazodone HCl 25 mg 01/09/20 22:00 02/24/20 21:28 Desyrel PO 25 mg QHS BRO Administration Nutrition/Malnutrition Assess - Dietary Evaluation Nutrition/Malnutrition Findings: Nutrition Notes Start: 01/09/20 12:13 Freq: Status: Active Protocol: Document 02/24/20 11:03 AL (Rec: 02/24/20 11:13 AL [email or web address]) Co-Sign 02/24/20 11:03 MK Nutrition Notes Initial or Follow up Reassessment Current Diagnosis Decubitus(Pressure Ulcer), Diabetes,Sepsis Other Pertinent Diagnosis UTI, dementia, PE, Sacral wound Current Diet Vital AF 1.2 at 50ml/hr Labs/Tests Reviewed Pertinent Medications Reviewed Height 5 ft 2 in Weight 63.1 kg [place] Body Weight (kg) 50.00 BMI 25.4 Weight Status Overweight Subjective/Other Information RD FU for stalbe TF. TF still running at 50 ml/hr (goal rate ). No issues with TF noted. Percent of energy/protein needs met: 91%/100% Burn Absent Trauma Absent Current % PO Negligible Minimum of two criteria Yes Fluid Accumulation Moderate to Severe (severe) Reduced Wire Stretcher Strength Measurably Reduced (severe) #3 Nutrition Diagnosis Malnutrition Diagnosis Progress(for reassessment Continues documentation) #2 Nutrition Diagnosis Inadequate oral intake Diagnosis Progress(for reassessment Continues documentation) #1 Nutrition Diagnosis Increased nutrient needs ( specify in comment below) Comments: protein Diagnosis Progress(for reassessment Continues documentation) Is patient on ventilator? Yes Is Patient Ambulatory and/or Out of Bed No [facility] 1331.064 Kcal/Kg value to use for calculation 22 Approximate Energy Requirements Using 1388 kcal/Kg Calculation Used for Recommendations Kcal/kg Additional Notes Pro: 81-98 g (1.25-1.5 g/kg) Fluid: 1ml/kcal Nutrition Intervention Change Diet Order: Continue Nutrition Support: Vital AF 1.2 at 50ml/hr Flush 250ml q4h per MD Kcal 1,440 Protein (gm) 90 Fluid (mL) 973 Goal #1 TF tolerance Goal #2 Meet at least 80% of kcal and protein needs via TF Goal #3 Wound healing Anticipated Discharge Needs: Continue TF Follow-Up By: 03/02/20 Additional Comments F/U for stable TF
[2020-02-25] MEDS: FAMOTIDINE 20 MG TAB PO SCH ×2 (09:24→21:33)
[2020-02-25] MEDS: FERROUS SULFATE 308 MG (62mg Elemental Iron) / 7 ML ELIXIR FEEDTUBE SCH (09:24)
[2020-02-25] MEDS: HEPARIN 5,000 UNIT/1 ML VIAL SUB-Q SCH ×2 (09:25→21:33)
[2020-02-25] MEDS: METOPROLOL TARTRATE 25 MG TAB PO SCH (09:25)
[2020-02-25] MEDS: MULTIVITAMINS 5 ML ORAL LIQUID PO SCH (09:25)
[2020-02-25] MEDS: GLYCOPYRROLATE 2 MG TAB PO SCH ×2 (09:25→21:33)
--- NOTE | 2020-02-25 13:02 | Progress Note ---
Assessment and Plan Severe sepsis with shock. Left lung atelectasis. Left pleural effusion. Acute hypoxemic respiratory failure. Acute possibly on chronic encephalopathy. History of diabetes. Urinary tract infection. History of pulmonary embolism, diagnosed several months ago. Sacral decubitus ulcer. Dementia. Anemia that is normocytic. - phosphorus WNL - t-piece RTC as tolerated - ABG at 9 pm to assess ventilation - continue care as below otherwise; - continue daily SAT's and SBT's as tolerated - continue scopolamine for secretions - continue to rest on AC qhs for now - complete AB's per ID rec's (Zosyn) - continue to wean supplemental oxygen for target O2 sat's > 92% acutely - VAP bundle addressed - continue lung protective strategies - continue bronchodilators with routine trach care and pulmonary hygiene per RT - wean per pulmonary driven protocols otherwise - continue accuchecks with glycemic control per SSI (While critically ill target blood glucose of 140-180 mg/dL; avoid hypoglycemia) - sedation prn for target RASS 0 to -1 - avoid nephrotoxins, renally dose all medications - continue to avoid benzodiazepine's, reduce the possibility of delirium - prn analgesia per CPOT score - Maintenance of sleep-wake cycle, avoid delirium - continue enteral nutritional support at goal rate as tolerated - G.I. & VTE prophylaxis with famotidine and heparin - PT/OT/ROM exercises - continue mobility protocols for pressure ulcer prophylaxis - Monitor hemodynamics closely - continue other care per attending / other consultants - discharge planning ongoing concurrently .... Re-evaluate in am & prn CONDITION: CRITICAL PROGNOSIS: GUARDED CODE STATUS: FULL CODE The high probability of a clinically significant, sudden or life-threatening deterioration of the [respiratory, cardiovascular & neurologic] system(s) required my full and direct attention, intervention and personal management. The aggregate critical care time was [32] minutes without overlap. Time includes spent on; [x] Data Review and interpretation [x] Patient assessment and monitoring of vital signs [x] Documentation [x] Medication orders and management Subjective Date of service: 02/25/20 Principal diagnosis: Septic Shock; S/P Cardiac Arrest; Ac. hypoxemic resp failure; UTI Interval history: Patient is seen today for: Severe sepsis with shock; S/P Cardiac Arrest; L. lung atelectasis / L. pleural effusion; Acute hypoxemic respiratory failure; Acute possibly on chronic encephalopathy; DM II; UTI; VTE Seen and examined at bedside; 24hour events reviewed; nursing and respiratory care staff consulted; no adverse overnight events reported to me; resting peacefully in bed; AMS is persistent; on t-piece and tolerating well so far today Objective Vital Signs - 12hr 02/25/20 02/25/20 02/25/20 01:30 02:00 02:30 Temperature Pulse Rate 91 H 101 H 102 H Pulse Rate [ From Monitor] Respiratory 15 19 26 H Rate Blood Pressure 109/52 109/52 101/53 O2 Sat by Pulse 100 100 100 Oximetry O2 Sat by Pulse 100 Oximetry [ Assessment] 02/25/20 02/25/20 02/25/20 03:00 03:30 04:00 Temperature 98.3 F Pulse Rate 115 H 107 H 103 H Pulse Rate [ 86 From Monitor] Respiratory 27 H 35 H 26 H Rate Blood Pressure 101/53 115/43 115/43 O2 Sat by Pulse 100 100 100 Oximetry O2 Sat by Pulse Oximetry [ Assessment] 02/25/20 02/25/20 02/25/20 04:10 04:20 04:27 Temperature Pulse Rate 106 H 108 H 111 H Pulse Rate [ From Monitor] Respiratory 33 H 25 H Rate Blood Pressure 43/13 43/13 138/48 O2 Sat by Pulse 100 100 100 Oximetry O2 Sat by Pulse Oximetry [ Assessment] 02/25/20 02/25/20 02/25/20 04:30 04:40 04:50 Temperature Pulse Rate 108 H 106 H 111 H Pulse Rate [ From Monitor] Respiratory 21 19 22 Rate Blood Pressure 138/48 113/62 113/62 O2 Sat by Pulse 100 100 100 Oximetry O2 Sat by Pulse Oximetry [ Assessment] 02/25/20 02/25/20 02/25/20 05:00 05:10 05:20 Temperature Pulse Rate 106 H 99 H 96 H Pulse Rate [ From Monitor] Respiratory 23 19 16 Rate Blood Pressure 127/52 127/52 127/52 O2 Sat by Pulse 100 100 100 Oximetry O2 Sat by Pulse Oximetry [ Assessment] 02/25/20 02/25/20 02/25/20 05:30 05:40 05:50 Temperature Pulse Rate 99 H 114 H 110 H Pulse Rate [ From Monitor] Respiratory 16 24 24 Rate Blood Pressure 116/54 116/54 116/54 O2 Sat by Pulse 100 100 100 Oximetry O2 Sat by Pulse Oximetry [ Assessment] 02/25/20 02/25/20 02/25/20 06:00 06:10 06:20 Temperature Pulse Rate 94 H 113 H 109 H Pulse Rate [ From Monitor] Respiratory 16 22 24 Rate Blood Pressure 116/53 116/53 116/53 O2 Sat by Pulse 100 100 100 Oximetry O2 Sat by Pulse Oximetry [ Assessment] 02/25/20 02/25/20 02/25/20 06:30 06:40 06:50 Temperature Pulse Rate 119 H 114 H 101 H Pulse Rate [ From Monitor] Respiratory 21 23 17 Rate Blood Pressure 76/52 91/58 91/58 O2 Sat by Pulse 100 100 100 Oximetry O2 Sat by Pulse Oximetry [ Assessment] 02/25/20 02/25/20 02/25/20 07:00 07:10 07:20 Temperature Pulse Rate 107 H 106 H 94 H Pulse Rate [ From Monitor] Respiratory 22 24 16 Rate Blood Pressure 138/76 138/76 138/76 O2 Sat by Pulse 100 100 100 Oximetry O2 Sat by Pulse Oximetry [ Assessment] 02/25/20 02/25/20 02/25/20 07:30 07:40 07:47 Temperature 99.1 F Pulse Rate 114 H 111 H Pulse Rate [ From Monitor] Respiratory 25 H 25 H Rate Blood Pressure 121/40 121/40 O2 Sat by Pulse 100 100 Oximetry O2 Sat by Pulse Oximetry [ Assessment] 02/25/20 02/25/20 02/25/20 07:50 08:00 08:10 Temperature Pulse Rate 110 H 70 106 H Pulse Rate [ 70 From Monitor] Respiratory 25 H 12 22 Rate Blood Pressure 121/40 94/44 94/44 O2 Sat by Pulse 100 100 100 Oximetry O2 Sat by Pulse Oximetry [ Assessment] 02/25/20 02/25/20 02/25/20 08:20 08:30 08:37 Temperature Pulse Rate 88 92 H 114 H Pulse Rate [ From Monitor] Respiratory 14 14 26 H Rate Blood Pressure 122/65 110/53 110/53 O2 Sat by Pulse 100 100 100 Oximetry O2 Sat by Pulse Oximetry [ Assessment] 02/25/20 02/25/20 02/25/20 08:40 08:50 09:00 Temperature Pulse Rate 113 H 98 H 113 H Pulse Rate [ From Monitor] Respiratory 23 20 23 Rate Blood Pressure 110/53 110/53 143/62 O2 Sat by Pulse 100 100 100 Oximetry O2 Sat by Pulse Oximetry [ Assessment] 02/25/20 02/25/20 02/25/20 09:10 09:20 09:25 Temperature Pulse Rate 92 H 108 H 108 H Pulse Rate [ From Monitor] Respiratory 22 26 H Rate Blood Pressure 143/62 143/62 143/62 O2 Sat by Pulse 100 100 Oximetry O2 Sat by Pulse Oximetry [ Assessment] 02/25/20 02/25/20 02/25/20 09:30 09:40 09:50 Temperature Pulse Rate 106 H 101 H 90 Pulse Rate [ From Monitor] Respiratory 23 29 H 26 H Rate Blood Pressure 139/64 139/64 139/64 O2 Sat by Pulse 100 100 100 Oximetry O2 Sat by Pulse Oximetry [ Assessment] 02/25/20 02/25/20 02/25/20 10:00 10:10 10:20 Temperature Pulse Rate 90 85 83 Pulse Rate [ From Monitor] Respiratory 27 H 26 H 24 Rate Blood Pressure 94/67 94/67 94/67 O2 Sat by Pulse 100 100 100 Oximetry O2 Sat by Pulse Oximetry [ Assessment] 02/25/20 02/25/20 02/25/20 10:30 10:40 10:50 Temperature Pulse Rate 79 86 85 Pulse Rate [ From Monitor] Respiratory 24 26 H 27 H Rate Blood Pressure 61/28 61/28 83/60 O2 Sat by Pulse 100 100 100 Oximetry O2 Sat by Pulse Oximetry [ Assessment] 02/25/20 02/25/20 02/25/20 11:00 11:10 11:20 Temperature Pulse Rate 84 89 91 H Pulse Rate [ From Monitor] Respiratory 23 27 H 25 H Rate Blood Pressure 83/60 122/70 122/70 O2 Sat by Pulse 100 100 100 Oximetry O2 Sat by Pulse Oximetry [ Assessment] 02/25/20 02/25/20 02/25/20 11:30 11:40 11:50 Temperature Pulse Rate 90 90 99 H Pulse Rate [ From Monitor] Respiratory 25 H 26 H 28 H Rate Blood Pressure 103/64 103/64 103/64 O2 Sat by Pulse 100 100 100 Oximetry O2 Sat by Pulse Oximetry [ Assessment] 02/25/20 02/25/20 02/25/20 11:51 12:00 12:10 Temperature 99.1 F Pulse Rate 98 H 94 H Pulse Rate [ From Monitor] Respiratory 31 H 34 H Rate Blood Pressure 82/34 82/34 O2 Sat by Pulse 100 100 Oximetry O2 Sat by Pulse 100 Oximetry [ Assessment] 02/25/20 02/25/20 02/25/20 12:20 12:30 12:40 Temperature Pulse Rate 97 H 96 H 96 H Pulse Rate [ From Monitor] Respiratory 35 H 39 H 28 H Rate Blood Pressure 95/52 98/54 98/54 O2 Sat by Pulse 100 100 100 Oximetry O2 Sat by Pulse Oximetry [ Assessment] Constitutional: no acute distress, alert, other (elderly chronically ill looking female trach to [facility] [place]) Eyes: non-icteric ENT: oropharynx moist, other (trach) Neck: supple, no lymphadenopathy, no JVD Effort: normal Ascultation: Bilateral: diminished breath sounds, rhonchi (scant bases) Percussion: Bilateral: not dull Cardiovascular: regular rate and rhythm, other (S1,S2) Gastrointestinal: normoactive bowel sounds, soft, non-tender, non-distended, other (PEG in place) Integumentary: decubitus ulcer Extremities: no cyanosis, pulses normal, no ischemia or petechiae, edema ( bilateral upper extremity edema) Neurologic: pupils equal and round, other (awake and alert, not obeying commands) Psychiatric: other (Unable to assess secondary to mental status) CBC and BMP: 02/24/20 07:02 02/24/20 04:20 ABG, PT/INR, D-dimer: ABG ABG pH 7.497 (7.320-7.450) H 02/24/20 13:39 POC ABG pCO2 37.3 mmHg (32.0-48.0) 02/24/20 13:39 ABG pCO2 39.6 mm Hg 02/13/20 04:30 POC ABG pO2 108.0 mmHg (83-108) 02/24/20 13:39 ABG pO2 98.4 mm Hg (80.0-90.0) H 02/13/20 04:30 POC ABG HCO3 28.2 02/24/20 13:39 ABG O2 Saturation 97.7 % (95.0-99.0) 02/13/20 04:30 PT/INR, D-dimer PT 14.4 Sec. (12.2-14.9) 02/02/20 05:25 INR 1.11 (0.87-1.13) 02/02/20 05:25 Abnormal lab findings: Abnormal Labs 01/08/20 01/08/20 01/08/20 16:29 16:29 16:29 WBC 13.5 H RBC Hgb Hct MCHC RDW 15.5 H Plt Count MCH Lymph % (Auto) Lymph # Lymph # (Auto) Seg Neutrophils % Seg Neuts % (Manual) 85.0 H Lymphocytes % (Manual) 11.0 L Seg Neutrophils # Seg Neutrophils # Man 11.5 H Basophils % (Manual) Nucleated RBC % Lymphocytes # (Manual) Monocytes # (Manual) Basophils # (Manual) PT INR Heparin Anti-Xa Level POC ABG pO2 ABG pH ABG Hemoglobin ABG Oxyhemoglobin ABG pO2 ABG HCO3 ABG O2 Saturation ABG Base Excess ABG Sodium ABG Potassium ABG Chloride ABG Glucose Oxyhemoglobin Sodium 161 H* Potassium Chloride 125.5 H Carbon Dioxide 20 L BUN 30 H Creatinine Glucose 115 H POC Glucose Lactic Acid 2.20 H* Calcium 7.9 L AST 48 H Phosphorus Total Protein Albumin 2.5 L C-Reactive Protein Arterial Blood Glucose Arterial Blood Ionized Calcium Urine WBC (Auto) Crossmatch 01/08/20 01/08/20 01/08/20 19:02 23:30 Unknown WBC RBC Hgb Hct MCHC RDW Plt Count MCH Lymph % (Auto) Lymph # Lymph # (Auto) Seg Neutrophils % Seg Neuts % (Manual) Lymphocytes % (Manual) Seg Neutrophils # Seg Neutrophils # Man Basophils % (Manual) Nucleated RBC % Lymphocytes # (Manual) Monocytes # (Manual) Basophils # (Manual) PT INR Heparin Anti-Xa Level POC ABG pO2 ABG pH ABG Hemoglobin ABG Oxyhemoglobin ABG pO2 ABG HCO3 ABG O2 Saturation ABG Base Excess ABG Sodium ABG Potassium ABG Chloride ABG Glucose Oxyhemoglobin Sodium Potassium Chloride Carbon Dioxide BUN Creatinine Glucose POC Glucose Lactic Acid 2.10 H* 2.50 H* Calcium AST Phosphorus Total Protein Albumin C-Reactive Protein Arterial Blood Glucose Arterial Blood Ionized Calcium Urine WBC (Auto) 11.0 H Crossmatch 01/09/20 01/09/20 01/09/20 00:19 00:54 05:52 WBC 13.5 H RBC 3.02 L Hgb 9.0 L D Hct 27.4 L D MCHC RDW Plt Count MCH Lymph % (Auto) 9.1 L Lymph # Lymph # (Auto) Seg Neutrophils % 87.6 H Seg Neuts % (Manual) Lymphocytes % (Manual) Seg Neutrophils # 11.8 H Seg Neutrophils # Man Basophils % (Manual) Nucleated RBC % Lymphocytes # (Manual) Monocytes # (Manual) Basophils # (Manual) PT INR Heparin Anti-Xa Level POC ABG pO2 ABG pH ABG Hemoglobin ABG Oxyhemoglobin ABG pO2 ABG HCO3 ABG O2 Saturation ABG Base Excess ABG Sodium ABG Potassium ABG Chloride ABG Glucose Oxyhemoglobin Sodium Potassium Chloride Carbon Dioxide BUN Creatinine Glucose POC Glucose 118 H 116 H Lactic Acid Calcium AST Phosphorus Total Protein Albumin C-Reactive Protein Arterial Blood Glucose Arterial Blood Ionized Calcium Urine WBC (Auto) Crossmatch 01/09/20 01/09/20 01/09/20 05:52 05:52 13:03 WBC RBC Hgb Hct MCHC RDW Plt Count MCH Lymph % (Auto) Lymph # Lymph # (Auto) Seg Neutrophils % Seg Neuts % (Manual) Lymphocytes % (Manual) Seg Neutrophils # Seg Neutrophils # Man Basophils % (Manual) Nucleated RBC % Lymphocytes # (Manual) Monocytes # (Manual) Basophils # (Manual) PT 17.1 H INR 1.36 H Heparin Anti-Xa Level POC ABG pO2 ABG pH ABG Hemoglobin ABG Oxyhemoglobin ABG pO2 ABG HCO3 ABG O2 Saturation ABG Base Excess ABG Sodium ABG Potassium ABG Chloride ABG Glucose Oxyhemoglobin Sodium 162 H* Potassium 3.0 L D Chloride 128.3 H Carbon Dioxide BUN 23 H Creatinine Glucose POC Glucose 55 L Lactic Acid Calcium 7.6 L AST Phosphorus Total Protein Albumin C-Reactive Protein Arterial Blood Glucose Arterial Blood Ionized Calcium Urine WBC (Auto) Crossmatch 01/09/20 01/09/20 01/09/20 21:22 21:50 22:28 WBC RBC Hgb Hct MCHC RDW Plt Count MCH Lymph % (Auto) Lymph # Lymph # (Auto) Seg Neutrophils % Seg Neuts % (Manual) Lymphocytes % (Manual) Seg Neutrophils # Seg Neutrophils # Man Basophils % (Manual) Nucleated RBC % Lymphocytes # (Manual) Monocytes # (Manual) Basophils # (Manual) PT INR Heparin Anti-Xa Level POC ABG pO2 ABG pH ABG Hemoglobin ABG Oxyhemoglobin ABG pO2 ABG HCO3 ABG O2 Saturation ABG Base Excess ABG Sodium ABG Potassium ABG Chloride ABG Glucose Oxyhemoglobin Sodium 159 H Potassium 5.1 H D Chloride 128.5 H Carbon Dioxide 16 L BUN 23 H Creatinine Glucose 51 L POC Glucose 52 L 106 H Lactic Acid Calcium 8.2 L AST Phosphorus Total Protein Albumin C-Reactive Protein Arterial Blood Glucose Arterial Blood Ionized Calcium Urine WBC (Auto) Crossmatch 01/10/20 01/10/20 01/10/20 05:23 09:11 10:10 WBC 13.4 H RBC Hgb Hct MCHC RDW Plt Count MCH Lymph % (Auto) 7.2 L Lymph # 1.0 L Lymph # (Auto) Seg Neutrophils % 90.0 H Seg Neuts % (Manual) Lymphocytes % (Manual) Seg Neutrophils # 12.0 H Seg Neutrophils # Man Basophils % (Manual) Nucleated RBC % Lymphocytes # (Manual) Monocytes # (Manual) Basophils # (Manual) PT INR Heparin Anti-Xa Level POC ABG pO2 ABG pH ABG Hemoglobin ABG Oxyhemoglobin ABG pO2 ABG HCO3 ABG O2 Saturation ABG Base Excess ABG Sodium ABG Potassium ABG Chloride ABG Glucose Oxyhemoglobin Sodium 155 H Potassium Chloride 122.8 H Carbon Dioxide 21 L BUN 19 H Creatinine Glucose POC Glucose 120 H Lactic Acid Calcium AST Phosphorus Total Protein Albumin C-Reactive Protein Arterial Blood Glucose Arterial Blood Ionized Calcium Urine WBC (Auto) Crossmatch 01/10/20 01/10/20 01/10/20 11:47 11:57 17:09 WBC RBC Hgb Hct MCHC RDW Plt Count MCH Lymph % (Auto) Lymph # Lymph # (Auto) Seg Neutrophils % Seg Neuts % (Manual) Lymphocytes % (Manual) Seg Neutrophils # Seg Neutrophils # Man Basophils % (Manual) Nucleated RBC % Lymphocytes # (Manual) Monocytes # (Manual) Basophils # (Manual) PT INR Heparin Anti-Xa Level POC ABG pO2 ABG pH ABG Hemoglobin ABG Oxyhemoglobin ABG pO2 ABG HCO3 ABG O2 Saturation ABG Base Excess ABG Sodium ABG Potassium ABG Chloride ABG Glucose Oxyhemoglobin Sodium 153 H Potassium Chloride 118.3 H Carbon Dioxide 20 L BUN 19 H Creatinine Glucose 113 H POC Glucose 142 H 125 H Lactic Acid Calcium AST Phosphorus Total Protein Albumin C-Reactive Protein Arterial Blood Glucose Arterial Blood Ionized Calcium Urine WBC (Auto) Crossmatch 01/10/20 01/10/20 01/11/20 20:27 22:00 00:45 WBC RBC Hgb Hct MCHC RDW Plt Count MCH Lymph % (Auto) Lymph # Lymph # (Auto) Seg Neutrophils % Seg Neuts % (Manual) Lymphocytes % (Manual) Seg Neutrophils # Seg Neutrophils # Man Basophils % (Manual) Nucleated RBC % Lymphocytes # (Manual) Monocytes # (Manual) Basophils # (Manual) PT INR Heparin Anti-Xa Level POC ABG pO2 ABG pH ABG Hemoglobin ABG Oxyhemoglobin ABG pO2 ABG HCO3 ABG O2 Saturation ABG Base Excess ABG Sodium ABG Potassium ABG Chloride ABG Glucose Oxyhemoglobin Sodium 153 H 154 H Potassium 3.3 L 3.2 L Chloride 117.0 H 118.9 H Carbon Dioxide 20 L BUN Creatinine Glucose POC Glucose 136 H Lactic Acid Calcium 8.3 L 8.0 L AST Phosphorus Total Protein Albumin C-Reactive Protein Arterial Blood Glucose Arterial Blood Ionized Calcium Urine WBC (Auto) Crossmatch 01/11/20 01/11/20 01/11/20 07:06 08:03 11:54 WBC RBC Hgb Hct MCHC RDW Plt Count MCH Lymph % (Auto) Lymph # Lymph # (Auto) Seg Neutrophils % Seg Neuts % (Manual) Lymphocytes % (Manual) Seg Neutrophils # Seg Neutrophils # Man Basophils % (Manual) Nucleated RBC % Lymphocytes # (Manual) Monocytes # (Manual) Basophils # (Manual) PT INR Heparin Anti-Xa Level POC ABG pO2 ABG pH ABG Hemoglobin ABG Oxyhemoglobin ABG pO2 ABG HCO3 ABG O2 Saturation ABG Base Excess ABG Sodium ABG Potassium ABG Chloride ABG Glucose Oxyhemoglobin Sodium 151 H Potassium Chloride 118.7 H Carbon Dioxide 21 L BUN Creatinine Glucose 107 H POC Glucose 118 H 164 H Lactic Acid Calcium 8.3 L AST Phosphorus Total Protein Albumin C-Reactive Protein Arterial Blood Glucose Arterial Blood Ionized Calcium Urine WBC (Auto) Crossmatch 01/11/20 01/12/20 01/12/20 16:28 00:19 05:40 WBC RBC Hgb Hct MCHC RDW Plt Count MCH Lymph % (Auto) Lymph # Lymph # (Auto) Seg Neutrophils % Seg Neuts % (Manual) Lymphocytes % (Manual) Seg Neutrophils # Seg Neutrophils # Man Basophils % (Manual) Nucleated RBC % Lymphocytes # (Manual) Monocytes # (Manual) Basophils # (Manual) PT INR Heparin Anti-Xa Level POC ABG pO2 ABG pH ABG Hemoglobin ABG Oxyhemoglobin ABG pO2 ABG HCO3 ABG O2 Saturation ABG Base Excess ABG Sodium ABG Potassium ABG Chloride ABG Glucose Oxyhemoglobin Sodium 148 H Potassium Chloride 111.6 H Carbon Dioxide 19 L BUN Creatinine Glucose 128 H POC Glucose 132 H 179 H Lactic Acid Calcium 8.2 L AST Phosphorus Total Protein Albumin C-Reactive Protein Arterial Blood Glucose Arterial Blood Ionized Calcium Urine WBC (Auto) Crossmatch 01/12/20 01/12/20 01/12/20 06:17 11:37 17:21 WBC RBC Hgb Hct MCHC RDW Plt Count MCH Lymph % (Auto) Lymph # Lymph # (Auto) Seg Neutrophils % Seg Neuts % (Manual) Lymphocytes % (Manual) Seg Neutrophils # Seg Neutrophils # Man Basophils % (Manual) Nucleated RBC % Lymphocytes # (Manual) Monocytes # (Manual) Basophils # (Manual) PT INR Heparin Anti-Xa Level POC ABG pO2 ABG pH ABG Hemoglobin ABG Oxyhemoglobin ABG pO2 ABG HCO3 ABG O2 Saturation ABG Base Excess ABG Sodium ABG Potassium ABG Chloride ABG Glucose Oxyhemoglobin Sodium Potassium Chloride Carbon Dioxide BUN Creatinine Glucose POC Glucose 140 H 142 H 133 H Lactic Acid Calcium AST Phosphorus Total Protein Albumin C-Reactive Protein Arterial Blood Glucose Arterial Blood Ionized Calcium Urine WBC (Auto) Crossmatch 01/12/20 01/13/20 01/13/20 23:14 05:26 07:00 WBC RBC Hgb Hct MCHC RDW Plt Count MCH Lymph % (Auto) Lymph # Lymph # (Auto) Seg Neutrophils % Seg Neuts % (Manual) Lymphocytes % (Manual) Seg Neutrophils # Seg Neutrophils # Man Basophils % (Manual) Nucleated RBC % Lymphocytes # (Manual) Monocytes # (Manual) Basophils # (Manual) PT INR Heparin Anti-Xa Level POC ABG pO2 ABG pH ABG Hemoglobin ABG Oxyhemoglobin ABG pO2 ABG HCO3 ABG O2 Saturation ABG Base Excess ABG Sodium ABG Potassium ABG Chloride ABG Glucose Oxyhemoglobin Sodium Potassium Chloride 110.0 H Carbon Dioxide BUN Creatinine Glucose 139 H POC Glucose 135 H 162 H Lactic Acid Calcium 7.8 L AST Phosphorus Total Protein Albumin C-Reactive Protein Arterial Blood Glucose Arterial Blood Ionized Calcium Urine WBC (Auto) Crossmatch 01/13/20 01/13/20 01/13/20 12:14 17:52 21:40 WBC RBC Hgb Hct MCHC RDW Plt Count MCH Lymph % (Auto) Lymph # Lymph # (Auto) Seg Neutrophils % Seg Neuts % (Manual) Lymphocytes % (Manual) Seg Neutrophils # Seg Neutrophils # Man Basophils % (Manual) Nucleated RBC % Lymphocytes # (Manual) Monocytes # (Manual) Basophils # (Manual) PT INR Heparin Anti-Xa Level POC ABG pO2 ABG pH ABG Hemoglobin ABG Oxyhemoglobin ABG pO2 ABG HCO3 ABG O2 Saturation ABG Base Excess ABG Sodium ABG Potassium ABG Chloride ABG Glucose Oxyhemoglobin Sodium Potassium Chloride Carbon Dioxide BUN Creatinine Glucose POC Glucose 205 H 172 H 186 H Lactic Acid Calcium AST Phosphorus Total Protein Albumin C-Reactive Protein Arterial Blood Glucose Arterial Blood Ionized Calcium Urine WBC (Auto) Crossmatch 01/14/20 01/14/20 01/14/20 04:28 11:01 11:01 WBC 14.8 H RBC 3.20 L Hgb 9.5 L Hct 28.0 L MCHC RDW Plt Count MCH Lymph % (Auto) Lymph # Lymph # (Auto) Seg Neutrophils % Seg Neuts % (Manual) Lymphocytes % (Manual) Seg Neutrophils # Seg Neutrophils # Man Basophils % (Manual) Nucleated RBC % Lymphocytes # (Manual) Monocytes # (Manual) Basophils # (Manual) PT INR Heparin Anti-Xa Level POC ABG pO2 ABG pH ABG Hemoglobin ABG Oxyhemoglobin ABG pO2 ABG HCO3 ABG O2 Saturation ABG Base Excess ABG Sodium ABG Potassium ABG Chloride ABG Glucose Oxyhemoglobin Sodium Potassium 3.2 L Chloride Carbon Dioxide BUN Creatinine 0.4 L Glucose POC Glucose 115 H Lactic Acid Calcium 8.0 L AST Phosphorus Total Protein Albumin C-Reactive Protein Arterial Blood Glucose Arterial Blood Ionized Calcium Urine WBC (Auto) Crossmatch 01/14/20 01/14/20 01/14/20 11:01 16:33 22:32 WBC RBC Hgb Hct MCHC RDW Plt Count MCH Lymph % (Auto) Lymph # Lymph # (Auto) Seg Neutrophils % Seg Neuts % (Manual) Lymphocytes % (Manual) Seg Neutrophils # Seg Neutrophils # Man Basophils % (Manual) Nucleated RBC % Lymphocytes # (Manual) Monocytes # (Manual) Basophils # (Manual) PT 15.8 H INR 1.23 H Heparin Anti-Xa Level POC ABG pO2 ABG pH ABG Hemoglobin ABG Oxyhemoglobin ABG pO2 ABG HCO3 ABG O2 Saturation ABG Base Excess ABG Sodium ABG Potassium ABG Chloride ABG Glucose Oxyhemoglobin Sodium Potassium Chloride Carbon Dioxide BUN Creatinine Glucose POC Glucose 58 L 188 H Lactic Acid Calcium AST Phosphorus Total Protein Albumin C-Reactive Protein Arterial Blood Glucose Arterial Blood Ionized Calcium Urine WBC (Auto) Crossmatch 01/15/20 01/15/20 01/15/20 05:35 06:19 17:17 WBC RBC Hgb Hct MCHC RDW Plt Count MCH Lymph % (Auto) Lymph # Lymph # (Auto) Seg Neutrophils % Seg Neuts % (Manual) Lymphocytes % (Manual) Seg Neutrophils # Seg Neutrophils # Man Basophils % (Manual) Nucleated RBC % Lymphocytes # (Manual) Monocytes # (Manual) Basophils # (Manual) PT INR Heparin Anti-Xa Level POC ABG pO2 ABG pH ABG Hemoglobin ABG Oxyhemoglobin ABG pO2 ABG HCO3 ABG O2 Saturation ABG Base Excess ABG Sodium ABG Potassium ABG Chloride ABG Glucose Oxyhemoglobin Sodium Potassium Chloride Carbon Dioxide BUN Creatinine 0.5 L Glucose 104 H POC Glucose 106 H 183 H Lactic Acid Calcium 7.8 L AST Phosphorus Total Protein Albumin C-Reactive Protein Arterial Blood Glucose Arterial Blood Ionized Calcium Urine WBC (Auto) Crossmatch 01/15/20 01/16/20 01/16/20 22:29 05:35 05:59 WBC 14.7 H RBC 3.04 L Hgb 9.0 L Hct 27.0 L MCHC RDW Plt Count MCH Lymph % (Auto) 9.1 L Lymph # Lymph # (Auto) Seg Neutrophils % 87.3 H Seg Neuts % (Manual) Lymphocytes % (Manual) Seg Neutrophils # 12.9 H Seg Neutrophils # Man Basophils % (Manual) Nucleated RBC % Lymphocytes # (Manual) Monocytes # (Manual) Basophils # (Manual) PT INR Heparin Anti-Xa Level POC ABG pO2 ABG pH ABG Hemoglobin ABG Oxyhemoglobin ABG pO2 ABG HCO3 ABG O2 Saturation ABG Base Excess ABG Sodium ABG Potassium ABG Chloride ABG Glucose Oxyhemoglobin Sodium Potassium Chloride Carbon Dioxide BUN Creatinine Glucose POC Glucose 228 H 130 H Lactic Acid Calcium AST Phosphorus Total Protein Albumin C-Reactive Protein Arterial Blood Glucose Arterial Blood Ionized Calcium Urine WBC (Auto) Crossmatch 01/16/20 01/16/20 01/16/20 09:52 12:49 17:30 WBC RBC Hgb Hct MCHC RDW Plt Count MCH Lymph % (Auto) Lymph # Lymph # (Auto) Seg Neutrophils % Seg Neuts % (Manual) Lymphocytes % (Manual) Seg Neutrophils # Seg Neutrophils # Man Basophils % (Manual) Nucleated RBC % Lymphocytes # (Manual) Monocytes # (Manual) Basophils # (Manual) PT INR Heparin Anti-Xa Level POC ABG pO2 ABG pH ABG Hemoglobin ABG Oxyhemoglobin ABG pO2 ABG HCO3 ABG O2 Saturation ABG Base Excess ABG Sodium ABG Potassium ABG Chloride ABG Glucose Oxyhemoglobin Sodium Potassium Chloride Carbon Dioxide BUN Creatinine Glucose POC Glucose 122 H 142 H 192 H Lactic Acid Calcium AST Phosphorus Total Protein Albumin C-Reactive Protein Arterial Blood Glucose Arterial Blood Ionized Calcium Urine WBC (Auto) Crossmatch 01/16/20 01/17/20 01/17/20 23:01 08:36 08:36 WBC 12.7 H RBC 2.98 L Hgb 8.9 L Hct 26.4 L MCHC RDW Plt Count MCH Lymph % (Auto) 8.8 L Lymph # 1.1 L Lymph # (Auto) Seg Neutrophils % 86.7 H Seg Neuts % (Manual) Lymphocytes % (Manual) Seg Neutrophils # 11.0 H Seg Neutrophils # Man Basophils % (Manual) Nucleated RBC % Lymphocytes # (Manual) Monocytes # (Manual) Basophils # (Manual) PT INR Heparin Anti-Xa Level POC ABG pO2 ABG pH ABG Hemoglobin ABG Oxyhemoglobin ABG pO2 ABG HCO3 ABG O2 Saturation ABG Base Excess ABG Sodium ABG Potassium ABG Chloride ABG Glucose Oxyhemoglobin Sodium Potassium 3.3 L D Chloride Carbon Dioxide BUN Creatinine 0.4 L Glucose POC Glucose 141 H Lactic Acid Calcium 8.1 L AST Phosphorus Total Protein 4.6 L Albumin 1.6 L C-Reactive Protein Arterial Blood Glucose Arterial Blood Ionized Calcium Urine WBC (Auto) Crossmatch 01/17/20 01/17/20 01/18/20 11:43 23:56 06:27 WBC RBC Hgb Hct MCHC RDW Plt Count MCH Lymph % (Auto) Lymph # Lymph # (Auto) Seg Neutrophils % Seg Neuts % (Manual) Lymphocytes % (Manual) Seg Neutrophils # Seg Neutrophils # Man Basophils % (Manual) Nucleated RBC % Lymphocytes # (Manual) Monocytes # (Manual) Basophils # (Manual) PT INR Heparin Anti-Xa Level POC ABG pO2 ABG pH ABG Hemoglobin ABG Oxyhemoglobin ABG pO2 ABG HCO3 ABG O2 Saturation ABG Base Excess ABG Sodium ABG Potassium ABG Chloride ABG Glucose Oxyhemoglobin Sodium Potassium Chloride Carbon Dioxide BUN Creatinine Glucose POC Glucose 137 H 215 H 122 H Lactic Acid Calcium AST Phosphorus Total Protein Albumin C-Reactive Protein Arterial Blood Glucose Arterial Blood Ionized Calcium Urine WBC (Auto) Crossmatch 01/18/20 01/18/20 01/18/20 07:31 07:31 11:39 WBC 12.1 H RBC 3.23 L Hgb 9.7 L Hct 28.7 L MCHC RDW Plt Count MCH Lymph % (Auto) 9.2 L Lymph # 1.1 L Lymph # (Auto) Seg Neutrophils % 85.0 H Seg Neuts % (Manual) Lymphocytes % (Manual) Seg Neutrophils # 10.3 H Seg Neutrophils # Man Basophils % (Manual) Nucleated RBC % Lymphocytes # (Manual) Monocytes # (Manual) Basophils # (Manual) PT INR Heparin Anti-Xa Level POC ABG pO2 ABG pH ABG Hemoglobin ABG Oxyhemoglobin ABG pO2 ABG HCO3 ABG O2 Saturation ABG Base Excess ABG Sodium ABG Potassium ABG Chloride ABG Glucose Oxyhemoglobin Sodium Potassium Chloride Carbon Dioxide BUN Creatinine 0.4 L Glucose 108 H POC Glucose 172 H Lactic Acid Calcium AST Phosphorus Total Protein 5.3 L Albumin 2.1 L C-Reactive Protein Arterial Blood Glucose Arterial Blood Ionized Calcium Urine WBC (Auto) Crossmatch 01/18/20 01/19/20 01/19/20 18:22 00:15 11:30 WBC RBC Hgb Hct MCHC RDW Plt Count MCH Lymph % (Auto) Lymph # Lymph # (Auto) Seg Neutrophils % Seg Neuts % (Manual) Lymphocytes % (Manual) Seg Neutrophils # Seg Neutrophils # Man Basophils % (Manual) Nucleated RBC % Lymphocytes # (Manual) Monocytes # (Manual) Basophils # (Manual) PT INR Heparin Anti-Xa Level POC ABG pO2 ABG pH ABG Hemoglobin ABG Oxyhemoglobin ABG pO2 ABG HCO3 ABG O2 Saturation ABG Base Excess ABG Sodium ABG Potassium ABG Chloride ABG Glucose Oxyhemoglobin Sodium Potassium Chloride Carbon Dioxide BUN Creatinine Glucose POC Glucose 119 H 135 H 163 H Lactic Acid Calcium AST Phosphorus Total Protein Albumin C-Reactive Protein Arterial Blood Glucose Arterial Blood Ionized Calcium Urine WBC (Auto) Crossmatch 01/19/20 01/19/20 01/20/20 17:44 22:59 03:44 WBC 11.1 H RBC 2.77 L Hgb 8.4 L Hct 25.0 L MCHC RDW Plt Count MCH Lymph % (Auto) Lymph # Lymph # (Auto) Seg Neutrophils % 74.6 H Seg Neuts % (Manual) Lymphocytes % (Manual) Seg Neutrophils # 8.3 H Seg Neutrophils # Man Basophils % (Manual) Nucleated RBC % Lymphocytes # (Manual) Monocytes # (Manual) Basophils # (Manual) PT INR Heparin Anti-Xa Level POC ABG pO2 ABG pH ABG Hemoglobin ABG Oxyhemoglobin ABG pO2 ABG HCO3 ABG O2 Saturation ABG Base Excess ABG Sodium ABG Potassium ABG Chloride ABG Glucose Oxyhemoglobin Sodium Potassium Chloride Carbon Dioxide BUN Creatinine Glucose POC Glucose 161 H 182 H Lactic Acid Calcium AST Phosphorus Total Protein Albumin C-Reactive Protein Arterial Blood Glucose Arterial Blood Ionized Calcium Urine WBC (Auto) Crossmatch 01/20/20 01/21/20 01/21/20 03:44 00:07 05:51 WBC RBC 2.84 L Hgb 8.6 L Hct 25.5 L MCHC RDW Plt Count 463 H MCH Lymph % (Auto) Lymph # Lymph # (Auto) Seg Neutrophils % 76.9 H Seg Neuts % (Manual) Lymphocytes % (Manual) Seg Neutrophils # 7.8 H Seg Neutrophils # Man Basophils % (Manual) Nucleated RBC % Lymphocytes # (Manual) Monocytes # (Manual) Basophils # (Manual) PT INR Heparin Anti-Xa Level POC ABG pO2 ABG pH ABG Hemoglobin ABG Oxyhemoglobin ABG pO2 ABG HCO3 ABG O2 Saturation ABG Base Excess ABG Sodium ABG Potassium ABG Chloride ABG Glucose Oxyhemoglobin Sodium Potassium Chloride Carbon Dioxide BUN Creatinine 0.4 L Glucose POC Glucose 68 L Lactic Acid Calcium 7.9 L AST Phosphorus Total Protein 4.7 L Albumin 1.9 L C-Reactive Protein Arterial Blood Glucose Arterial Blood Ionized Calcium Urine WBC (Auto) Crossmatch 01/21/20 01/21/20 01/21/20 05:51 05:58 11:25 WBC RBC Hgb Hct MCHC RDW Plt Count MCH Lymph % (Auto) Lymph # Lymph # (Auto) Seg Neutrophils % Seg Neuts % (Manual) Lymphocytes % (Manual) Seg Neutrophils # Seg Neutrophils # Man Basophils % (Manual) Nucleated RBC % Lymphocytes # (Manual) Monocytes # (Manual) Basophils # (Manual) PT INR Heparin Anti-Xa Level POC ABG pO2 ABG pH ABG Hemoglobin ABG Oxyhemoglobin ABG pO2 ABG HCO3 ABG O2 Saturation ABG Base Excess ABG Sodium ABG Potassium ABG Chloride ABG Glucose Oxyhemoglobin Sodium Potassium Chloride Carbon Dioxide 20 L BUN Creatinine 0.5 L Glucose 130 H POC Glucose 185 H 163 H Lactic Acid Calcium 7.6 L AST Phosphorus Total Protein 5.0 L Albumin 1.9 L C-Reactive Protein Arterial Blood Glucose Arterial Blood Ionized Calcium Urine WBC (Auto) Crossmatch 01/21/20 01/21/20 01/22/20 16:22 21:17 01:28 WBC RBC 2.60 L Hgb 8.0 L Hct 23.3 L MCHC RDW Plt Count MCH Lymph % (Auto) Lymph # Lymph # (Auto) Seg Neutrophils % 74.8 H Seg Neuts % (Manual) Lymphocytes % (Manual) Seg Neutrophils # Seg Neutrophils # Man Basophils % (Manual) Nucleated RBC % Lymphocytes # (Manual) Monocytes # (Manual) Basophils # (Manual) PT INR Heparin Anti-Xa Level POC ABG pO2 ABG pH ABG Hemoglobin ABG Oxyhemoglobin ABG pO2 ABG HCO3 ABG O2 Saturation ABG Base Excess ABG Sodium ABG Potassium ABG Chloride ABG Glucose Oxyhemoglobin Sodium Potassium Chloride Carbon Dioxide BUN Creatinine Glucose POC Glucose 177 H 67 L Lactic Acid Calcium AST Phosphorus Total Protein Albumin C-Reactive Protein Arterial Blood Glucose Arterial Blood Ionized Calcium Urine WBC (Auto) Crossmatch 01/22/20 01/22/20 01/22/20 01:28 01:28 12:06 WBC RBC Hgb Hct MCHC RDW Plt Count MCH Lymph % (Auto) Lymph # Lymph # (Auto) Seg Neutrophils % Seg Neuts % (Manual) Lymphocytes % (Manual) Seg Neutrophils # Seg Neutrophils # Man Basophils % (Manual) Nucleated RBC % Lymphocytes # (Manual) Monocytes # (Manual) Basophils # (Manual) PT INR Heparin Anti-Xa Level POC ABG pO2 ABG pH ABG Hemoglobin ABG Oxyhemoglobin ABG pO2 ABG HCO3 ABG O2 Saturation ABG Base Excess ABG Sodium ABG Potassium ABG Chloride ABG Glucose Oxyhemoglobin Sodium Potassium Chloride 107.6 H Carbon Dioxide BUN Creatinine 0.4 L Glucose 152 H POC Glucose 203 H 140 H Lactic Acid Calcium 7.5 L AST Phosphorus Total Protein 4.0 L Albumin 2.0 L C-Reactive Protein Arterial Blood Glucose Arterial Blood Ionized Calcium Urine WBC (Auto) Crossmatch 01/22/20 01/22/20 01/23/20 16:24 22:55 06:10 WBC RBC 2.68 L Hgb 8.6 L Hct 24.1 L MCHC 36 H RDW Plt Count MCH Lymph % (Auto) Lymph # Lymph # (Auto) Seg Neutrophils % Seg Neuts % (Manual) 71.0 H Lymphocytes % (Manual) Seg Neutrophils # Seg Neutrophils # Man Basophils % (Manual) Nucleated RBC % Lymphocytes # (Manual) Monocytes # (Manual) Basophils # (Manual) PT INR Heparin Anti-Xa Level POC ABG pO2 ABG pH ABG Hemoglobin ABG Oxyhemoglobin ABG pO2 ABG HCO3 ABG O2 Saturation ABG Base Excess ABG Sodium ABG Potassium ABG Chloride ABG Glucose Oxyhemoglobin Sodium Potassium Chloride Carbon Dioxide BUN Creatinine Glucose POC Glucose 205 H 196 H Lactic Acid Calcium AST Phosphorus Total Protein Albumin C-Reactive Protein Arterial Blood Glucose Arterial Blood Ionized Calcium Urine WBC (Auto) Crossmatch 01/23/20 01/23/20 01/23/20 06:10 07:35 11:59 WBC RBC Hgb Hct MCHC RDW Plt Count MCH Lymph % (Auto) Lymph # Lymph # (Auto) Seg Neutrophils % Seg Neuts % (Manual) Lymphocytes % (Manual) Seg Neutrophils # Seg Neutrophils # Man Basophils % (Manual) Nucleated RBC % Lymphocytes # (Manual) Monocytes # (Manual) Basophils # (Manual) PT INR Heparin Anti-Xa Level POC ABG pO2 ABG pH ABG Hemoglobin ABG Oxyhemoglobin ABG pO2 ABG HCO3 ABG O2 Saturation ABG Base Excess ABG Sodium ABG Potassium ABG Chloride ABG Glucose Oxyhemoglobin Sodium Potassium Chloride 108.8 H Carbon Dioxide BUN Creatinine 0.4 L Glucose 105 H POC Glucose 111 H 123 H Lactic Acid Calcium 8.0 L AST Phosphorus Total Protein 4.9 L D Albumin 2.0 L C-Reactive Protein Arterial Blood Glucose Arterial Blood Ionized Calcium Urine WBC (Auto) Crossmatch 01/23/20 01/24/20 01/24/20 22:45 11:24 16:41 WBC RBC Hgb Hct MCHC RDW Plt Count MCH Lymph % (Auto) Lymph # Lymph # (Auto) Seg Neutrophils % Seg Neuts % (Manual) Lymphocytes % (Manual) Seg Neutrophils # Seg Neutrophils # Man Basophils % (Manual) Nucleated RBC % Lymphocytes # (Manual) Monocytes # (Manual) Basophils # (Manual) PT INR Heparin Anti-Xa Level POC ABG pO2 ABG pH ABG Hemoglobin ABG Oxyhemoglobin ABG pO2 ABG HCO3 ABG O2 Saturation ABG Base Excess ABG Sodium ABG Potassium ABG Chloride ABG Glucose Oxyhemoglobin Sodium Potassium Chloride Carbon Dioxide BUN Creatinine Glucose POC Glucose 180 H 182 H 177 H Lactic Acid Calcium AST Phosphorus Total Protein Albumin C-Reactive Protein Arterial Blood Glucose Arterial Blood Ionized Calcium Urine WBC (Auto) Crossmatch 01/24/20 01/25/20 01/25/20 23:11 07:12 11:35 WBC RBC Hgb Hct MCHC RDW Plt Count MCH Lymph % (Auto) Lymph # Lymph # (Auto) Seg Neutrophils % Seg Neuts % (Manual) Lymphocytes % (Manual) Seg Neutrophils # Seg Neutrophils # Man Basophils % (Manual) Nucleated RBC % Lymphocytes # (Manual) Monocytes # (Manual) Basophils # (Manual) PT INR Heparin Anti-Xa Level POC ABG pO2 ABG pH ABG Hemoglobin ABG Oxyhemoglobin ABG pO2 ABG HCO3 ABG O2 Saturation ABG Base Excess ABG Sodium ABG Potassium ABG Chloride ABG Glucose Oxyhemoglobin Sodium Potassium Chloride Carbon Dioxide BUN Creatinine Glucose POC Glucose 142 H 135 H 142 H Lactic Acid Calcium AST Phosphorus Total Protein Albumin C-Reactive Protein Arterial Blood Glucose Arterial Blood Ionized Calcium Urine WBC (Auto) Crossmatch 01/25/20 01/26/20 01/26/20 16:33 00:04 11:35 WBC RBC Hgb Hct MCHC RDW Plt Count MCH Lymph % (Auto) Lymph # Lymph # (Auto) Seg Neutrophils % Seg Neuts % (Manual) Lymphocytes % (Manual) Seg Neutrophils # Seg Neutrophils # Man Basophils % (Manual) Nucleated RBC % Lymphocytes # (Manual) Monocytes # (Manual) Basophils # (Manual) PT INR Heparin Anti-Xa Level POC ABG pO2 ABG pH ABG Hemoglobin ABG Oxyhemoglobin ABG pO2 ABG HCO3 ABG O2 Saturation ABG Base Excess ABG Sodium ABG Potassium ABG Chloride ABG Glucose Oxyhemoglobin Sodium Potassium Chloride Carbon Dioxide BUN Creatinine Glucose POC Glucose 247 H 233 H 200 H Lactic Acid Calcium AST Phosphorus Total Protein Albumin C-Reactive Protein Arterial Blood Glucose Arterial Blood Ionized Calcium Urine WBC (Auto) Crossmatch 01/26/20 01/26/20 01/26/20 16:30 16:30 17:19 WBC RBC Hgb 7.4 L Hct 22.0 L MCHC RDW Plt Count MCH Lymph % (Auto) Lymph # Lymph # (Auto) Seg Neutrophils % Seg Neuts % (Manual) Lymphocytes % (Manual) Seg Neutrophils # Seg Neutrophils # Man Basophils % (Manual) Nucleated RBC % Lymphocytes # (Manual) Monocytes # (Manual) Basophils # (Manual) PT 18.4 H INR 1.50 H Heparin Anti-Xa Level POC ABG pO2 ABG pH ABG Hemoglobin ABG Oxyhemoglobin ABG pO2 ABG HCO3 ABG O2 Saturation ABG Base Excess ABG Sodium ABG Potassium ABG Chloride ABG Glucose Oxyhemoglobin Sodium Potassium Chloride Carbon Dioxide BUN Creatinine Glucose POC Glucose 67 L Lactic Acid Calcium AST Phosphorus Total Protein Albumin C-Reactive Protein Arterial Blood Glucose Arterial Blood Ionized Calcium Urine WBC (Auto) Crossmatch 01/26/20 01/26/20 01/27/20 20:24 21:32 00:16 WBC RBC Hgb Hct MCHC RDW Plt Count MCH Lymph % (Auto) Lymph # Lymph # (Auto) Seg Neutrophils % Seg Neuts % (Manual) Lymphocytes % (Manual) Seg Neutrophils # Seg Neutrophils # Man Basophils % (Manual) Nucleated RBC % Lymphocytes # (Manual) Monocytes # (Manual) Basophils # (Manual) PT INR Heparin Anti-Xa Level POC ABG pO2 51.8 L ABG pH ABG Hemoglobin 8.5 L ABG Oxyhemoglobin 84.7 L ABG pO2 ABG HCO3 ABG O2 Saturation ABG Base Excess ABG Sodium ABG Potassium ABG Chloride ABG Glucose Oxyhemoglobin Sodium Potassium Chloride Carbon Dioxide BUN Creatinine Glucose POC Glucose 162 H 141 H Lactic Acid Calcium AST Phosphorus Total Protein Albumin C-Reactive Protein Arterial Blood Glucose Arterial Blood Ionized Calcium Urine WBC (Auto) Crossmatch 01/27/20 01/27/20 01/27/20 01:42 02:18 05:57 WBC RBC Hgb Hct MCHC RDW Plt Count MCH Lymph % (Auto) Lymph # Lymph # (Auto) Seg Neutrophils % Seg Neuts % (Manual) Lymphocytes % (Manual) Seg Neutrophils # Seg Neutrophils # Man Basophils % (Manual) Nucleated RBC % Lymphocytes # (Manual) Monocytes # (Manual) Basophils # (Manual) PT INR Heparin Anti-Xa Level 2.00 H POC ABG pO2 ABG pH ABG Hemoglobin ABG Oxyhemoglobin ABG pO2 ABG HCO3 ABG O2 Saturation ABG Base Excess ABG Sodium ABG Potassium ABG Chloride ABG Glucose Oxyhemoglobin Sodium Potassium Chloride Carbon Dioxide BUN Creatinine Glucose POC Glucose 183 H 124 H Lactic Acid Calcium AST Phosphorus Total Protein Albumin C-Reactive Protein Arterial Blood Glucose Arterial Blood Ionized Calcium Urine WBC (Auto) Crossmatch 01/27/20 01/27/20 01/27/20 06:30 06:30 12:23 WBC RBC 2.75 L Hgb 8.4 L Hct 24.9 L MCHC RDW 16.0 H Plt Count 474 H MCH Lymph % (Auto) 12.7 L Lymph # Lymph # (Auto) Seg Neutrophils % 83.2 H Seg Neuts % (Manual) Lymphocytes % (Manual) Seg Neutrophils # 8.4 H Seg Neutrophils # Man Basophils % (Manual) Nucleated RBC % Lymphocytes # (Manual) Monocytes # (Manual) Basophils # (Manual) PT INR Heparin Anti-Xa Level POC ABG pO2 ABG pH ABG Hemoglobin ABG Oxyhemoglobin ABG pO2 ABG HCO3 ABG O2 Saturation ABG Base Excess ABG Sodium ABG Potassium ABG Chloride ABG Glucose Oxyhemoglobin Sodium Potassium 3.5 L Chloride 110.2 H Carbon Dioxide BUN Creatinine 0.4 L Glucose 101 H POC Glucose 126 H Lactic Acid Calcium 7.8 L AST Phosphorus Total Protein Albumin C-Reactive Protein Arterial Blood Glucose Arterial Blood Ionized Calcium Urine WBC (Auto) Crossmatch 01/27/20 01/27/20 01/28/20 17:31 23:40 00:00 WBC RBC Hgb Hct MCHC RDW Plt Count MCH Lymph % (Auto) Lymph # Lymph # (Auto) Seg Neutrophils % Seg Neuts % (Manual) Lymphocytes % (Manual) Seg Neutrophils # Seg Neutrophils # Man Basophils % (Manual) Nucleated RBC % Lymphocytes # (Manual) Monocytes # (Manual) Basophils # (Manual) PT INR Heparin Anti-Xa Level 2.00 H POC ABG pO2 ABG pH ABG Hemoglobin ABG Oxyhemoglobin ABG pO2 ABG HCO3 ABG O2 Saturation ABG Base Excess ABG Sodium ABG Potassium ABG Chloride ABG Glucose Oxyhemoglobin Sodium Potassium Chloride Carbon Dioxide BUN Creatinine Glucose POC Glucose 133 H 136 H Lactic Acid Calcium AST Phosphorus Total Protein Albumin C-Reactive Protein Arterial Blood Glucose Arterial Blood Ionized Calcium Urine WBC (Auto) Crossmatch 01/28/20 01/28/20 01/28/20 04:26 04:26 05:35 WBC RBC Hgb 9.6 L Hct 28.5 L MCHC RDW Plt Count 508 H MCH Lymph % (Auto) Lymph # Lymph # (Auto) Seg Neutrophils % Seg Neuts % (Manual) Lymphocytes % (Manual) Seg Neutrophils # Seg Neutrophils # Man Basophils % (Manual) Nucleated RBC % Lymphocytes # (Manual) Monocytes # (Manual) Basophils # (Manual) PT INR Heparin Anti-Xa Level POC ABG pO2 ABG pH ABG Hemoglobin ABG Oxyhemoglobin ABG pO2 ABG HCO3 ABG O2 Saturation ABG Base Excess ABG Sodium ABG Potassium ABG Chloride ABG Glucose Oxyhemoglobin Sodium Potassium Chloride Carbon Dioxide 19 L BUN 20 H Creatinine 0.5 L Glucose 103 H POC Glucose 135 H Lactic Acid Calcium 7.9 L AST Phosphorus Total Protein Albumin C-Reactive Protein Arterial Blood Glucose Arterial Blood Ionized Calcium Urine WBC (Auto) Crossmatch 01/28/20 01/28/20 01/28/20 08:50 11:10 11:51 WBC RBC Hgb Hct MCHC RDW Plt Count MCH Lymph % (Auto) Lymph # Lymph # (Auto) Seg Neutrophils % Seg Neuts % (Manual) Lymphocytes % (Manual) Seg Neutrophils # Seg Neutrophils # Man Basophils % (Manual) Nucleated RBC % Lymphocytes # (Manual) Monocytes # (Manual) Basophils # (Manual) PT INR Heparin Anti-Xa Level 0.74 H POC ABG pO2 67.2 L ABG pH ABG Hemoglobin 9.3 L ABG Oxyhemoglobin ABG pO2 ABG HCO3 ABG O2 Saturation ABG Base Excess ABG Sodium ABG Potassium ABG Chloride ABG Glucose Oxyhemoglobin Sodium Potassium Chloride Carbon Dioxide BUN Creatinine Glucose POC Glucose 160 H Lactic Acid Calcium AST Phosphorus Total Protein Albumin C-Reactive Protein Arterial Blood Glucose Arterial Blood Ionized Calcium Urine WBC (Auto) Crossmatch 01/28/20 01/28/20 01/29/20 17:19 23:53 03:52 WBC RBC Hgb Hct MCHC RDW Plt Count MCH Lymph % (Auto) Lymph # Lymph # (Auto) Seg Neutrophils % Seg Neuts % (Manual) Lymphocytes % (Manual) Seg Neutrophils # Seg Neutrophils # Man Basophils % (Manual) Nucleated RBC % Lymphocytes # (Manual) Monocytes # (Manual) Basophils # (Manual) PT INR Heparin Anti-Xa Level POC ABG pO2 ABG pH 7.510 H ABG Hemoglobin 7.3 L ABG Oxyhemoglobin ABG pO2 357.0 H ABG HCO3 19.6 L ABG O2 Saturation 99.6 H ABG Base Excess -2.9 L ABG Sodium ABG Potassium ABG Chloride ABG Glucose Oxyhemoglobin Sodium Potassium Chloride Carbon Dioxide BUN Creatinine Glucose POC Glucose 177 H 142 H Lactic Acid Calcium AST Phosphorus Total Protein Albumin C-Reactive Protein Arterial Blood Glucose Arterial Blood Ionized Calcium Urine WBC (Auto) Crossmatch 01/29/20 01/29/20 01/29/20 04:58 04:58 06:01 WBC 13.1 H RBC 2.75 L Hgb 8.6 L Hct 25.6 L MCHC RDW 17.7 H Plt Count MCH Lymph % (Auto) Lymph # Lymph # (Auto) Seg Neutrophils % Seg Neuts % (Manual) 91.0 H Lymphocytes % (Manual) 6.0 L Seg Neutrophils # Seg Neutrophils # Man 11.9 H Basophils % (Manual) Nucleated RBC % 1.0 H Lymphocytes # (Manual) 0.8 L Monocytes # (Manual) Basophils # (Manual) PT INR Heparin Anti-Xa Level POC ABG pO2 ABG pH ABG Hemoglobin ABG Oxyhemoglobin ABG pO2 ABG HCO3 ABG O2 Saturation ABG Base Excess ABG Sodium ABG Potassium ABG Chloride ABG Glucose Oxyhemoglobin Sodium 148 H Potassium 3.5 L D Chloride 113.2 H Carbon Dioxide 21 L BUN 20 H Creatinine Glucose 137 H POC Glucose 167 H Lactic Acid Calcium 8.1 L AST Phosphorus Total Protein Albumin C-Reactive Protein Arterial Blood Glucose Arterial Blood Ionized Calcium Urine WBC (Auto) Crossmatch 01/29/20 01/29/20 01/29/20 11:45 17:52 23:49 WBC RBC Hgb Hct MCHC RDW Plt Count MCH Lymph % (Auto) Lymph # Lymph # (Auto) Seg Neutrophils % Seg Neuts % (Manual) Lymphocytes % (Manual) Seg Neutrophils # Seg Neutrophils # Man Basophils % (Manual) Nucleated RBC % Lymphocytes # (Manual) Monocytes # (Manual) Basophils # (Manual) PT INR Heparin Anti-Xa Level POC ABG pO2 ABG pH ABG Hemoglobin ABG Oxyhemoglobin ABG pO2 ABG HCO3 ABG O2 Saturation ABG Base Excess ABG Sodium ABG Potassium ABG Chloride ABG Glucose Oxyhemoglobin Sodium Potassium Chloride Carbon Dioxide BUN Creatinine Glucose POC Glucose 185 H 226 H 141 H Lactic Acid Calcium AST Phosphorus Total Protein Albumin C-Reactive Protein Arterial Blood Glucose Arterial Blood Ionized Calcium Urine WBC (Auto) Crossmatch 01/29/20 01/30/20 01/30/20 Unknown 03:24 04:00 WBC RBC Hgb 7.8 L Hct 23.5 L MCHC RDW Plt Count MCH Lymph % (Auto) Lymph # Lymph # (Auto) Seg Neutrophils % Seg Neuts % (Manual) Lymphocytes % (Manual) Seg Neutrophils # Seg Neutrophils # Man Basophils % (Manual) Nucleated RBC % Lymphocytes # (Manual) Monocytes # (Manual) Basophils # (Manual) PT INR Heparin Anti-Xa Level POC ABG pO2 ABG pH 7.485 H ABG Hemoglobin 6.7 L ABG Oxyhemoglobin ABG pO2 102.0 H ABG HCO3 ABG O2 Saturation ABG Base Excess ABG Sodium ABG Potassium ABG Chloride ABG Glucose Oxyhemoglobin Sodium Potassium Chloride Carbon Dioxide BUN Creatinine Glucose POC Glucose Lactic Acid Calcium AST Phosphorus Total Protein Albumin C-Reactive Protein 14.80 H Arterial Blood Glucose Arterial Blood Ionized Calcium Urine WBC (Auto) Crossmatch 01/30/20 01/30/20 01/30/20 05:50 11:15 17:07 WBC RBC Hgb Hct MCHC RDW Plt Count MCH Lymph % (Auto) Lymph # Lymph # (Auto) Seg Neutrophils % Seg Neuts % (Manual) Lymphocytes % (Manual) Seg Neutrophils # Seg Neutrophils # Man Basophils % (Manual) Nucleated RBC % Lymphocytes # (Manual) Monocytes # (Manual) Basophils # (Manual) PT INR Heparin Anti-Xa Level POC ABG pO2 ABG pH ABG Hemoglobin ABG Oxyhemoglobin ABG pO2 ABG HCO3 ABG O2 Saturation ABG Base Excess ABG Sodium ABG Potassium ABG Chloride ABG Glucose Oxyhemoglobin Sodium Potassium Chloride Carbon Dioxide BUN Creatinine Glucose POC Glucose 122 H 207 H 124 H Lactic Acid Calcium AST Phosphorus Total Protein Albumin C-Reactive Protein Arterial Blood Glucose Arterial Blood Ionized Calcium Urine WBC (Auto) Crossmatch 01/30/20 01/31/20 01/31/20 17:08 00:10 04:52 WBC RBC Hgb Hct MCHC RDW Plt Count MCH Lymph % (Auto) Lymph # Lymph # (Auto) Seg Neutrophils % Seg Neuts % (Manual) Lymphocytes % (Manual) Seg Neutrophils # Seg Neutrophils # Man Basophils % (Manual) Nucleated RBC % Lymphocytes # (Manual) Monocytes # (Manual) Basophils # (Manual) PT INR Heparin Anti-Xa Level POC ABG pO2 ABG pH 7.504 H 7.486 H ABG Hemoglobin 7.4 L 6.2 L ABG Oxyhemoglobin ABG pO2 169.2 H 121.7 H ABG HCO3 27.1 H ABG O2 Saturation 99.1 H ABG Base Excess 3.4 H ABG Sodium ABG Potassium ABG Chloride ABG Glucose Oxyhemoglobin Sodium Potassium Chloride Carbon Dioxide BUN Creatinine Glucose POC Glucose 191 H Lactic Acid Calcium AST Phosphorus Total Protein Albumin C-Reactive Protein Arterial Blood Glucose Arterial Blood Ionized Calcium Urine WBC (Auto) Crossmatch 01/31/20 01/31/20 01/31/20 05:37 11:59 12:40 WBC RBC 2.41 L Hgb 7.5 L Hct 22.3 L MCHC RDW 22.2 H Plt Count MCH Lymph % (Auto) Lymph # Lymph # (Auto) Seg Neutrophils % Seg Neuts % (Manual) 94.0 H Lymphocytes % (Manual) 2.0 L Seg Neutrophils # Seg Neutrophils # Man 9.4 H Basophils % (Manual) Nucleated RBC % Lymphocytes # (Manual) 0.2 L Monocytes # (Manual) Basophils # (Manual) PT INR Heparin Anti-Xa Level POC ABG pO2 ABG pH ABG Hemoglobin ABG Oxyhemoglobin ABG pO2 ABG HCO3 ABG O2 Saturation ABG Base Excess ABG Sodium ABG Potassium ABG Chloride ABG Glucose Oxyhemoglobin Sodium Potassium Chloride Carbon Dioxide BUN Creatinine Glucose POC Glucose 175 H 220 H Lactic Acid Calcium AST Phosphorus Total Protein Albumin C-Reactive Protein Arterial Blood Glucose Arterial Blood Ionized Calcium Urine WBC (Auto) Crossmatch 01/31/20 01/31/20 01/31/20 12:40 14:40 18:18 WBC RBC Hgb Hct MCHC RDW Plt Count MCH Lymph % (Auto) Lymph # Lymph # (Auto) Seg Neutrophils % Seg Neuts % (Manual) Lymphocytes % (Manual) Seg Neutrophils # Seg Neutrophils # Man Basophils % (Manual) Nucleated RBC % Lymphocytes # (Manual) Monocytes # (Manual) Basophils # (Manual) PT INR Heparin Anti-Xa Level POC ABG pO2 124.7 H ABG pH 7.542 H ABG Hemoglobin 7.8 L ABG Oxyhemoglobin ABG pO2 ABG HCO3 ABG O2 Saturation ABG Base Excess ABG Sodium ABG Potassium ABG Chloride ABG Glucose Oxyhemoglobin Sodium 151 H Potassium 2.1 L* D Chloride 108.9 H Carbon Dioxide BUN 22 H Creatinine Glucose 194 H POC Glucose 181 H Lactic Acid Calcium 8.1 L AST Phosphorus Total Protein 4.8 L Albumin 2.3 L C-Reactive Protein Arterial Blood Glucose Arterial Blood Ionized Calcium Urine WBC (Auto) Crossmatch 02/01/20 02/01/20 02/01/20 00:11 03:14 04:32 WBC 11.9 H RBC 2.47 L Hgb 7.6 L Hct 22.8 L MCHC RDW 22.7 H Plt Count MCH Lymph % (Auto) Lymph # Lymph # (Auto) Seg Neutrophils % Seg Neuts % (Manual) 90.0 H Lymphocytes % (Manual) 5.0 L Seg Neutrophils # Seg Neutrophils # Man 10.7 H Basophils % (Manual) Nucleated RBC % Lymphocytes # (Manual) 0.6 L Monocytes # (Manual) Basophils # (Manual) PT INR Heparin Anti-Xa Level POC ABG pO2 ABG pH 7.564 H ABG Hemoglobin 7.6 L ABG Oxyhemoglobin ABG pO2 124.1 H ABG HCO3 29.6 H ABG O2 Saturation ABG Base Excess 7.0 H ABG Sodium ABG Potassium ABG Chloride ABG Glucose Oxyhemoglobin Sodium Potassium Chloride Carbon Dioxide BUN Creatinine Glucose POC Glucose 190 H Lactic Acid Calcium AST Phosphorus Total Protein Albumin C-Reactive Protein Arterial Blood Glucose Arterial Blood Ionized Calcium Urine WBC (Auto) Crossmatch 02/01/20 02/01/20 02/01/20 04:32 05:28 11:56 WBC RBC Hgb Hct MCHC RDW Plt Count MCH Lymph % (Auto) Lymph # Lymph # (Auto) Seg Neutrophils % Seg Neuts % (Manual) Lymphocytes % (Manual) Seg Neutrophils # Seg Neutrophils # Man Basophils % (Manual) Nucleated RBC % Lymphocytes # (Manual) Monocytes # (Manual) Basophils # (Manual) PT INR Heparin Anti-Xa Level POC ABG pO2 ABG pH ABG Hemoglobin ABG Oxyhemoglobin ABG pO2 ABG HCO3 ABG O2 Saturation ABG Base Excess ABG Sodium ABG Potassium ABG Chloride ABG Glucose Oxyhemoglobin Sodium 149 H Potassium 2.6 L* D Chloride Carbon Dioxide 33 H BUN 23 H Creatinine 0.5 L Glucose 174 H POC Glucose 187 H 195 H Lactic Acid Calcium 8.0 L AST Phosphorus 1.60 L Total Protein Albumin C-Reactive Protein Arterial Blood Glucose Arterial Blood Ionized Calcium Urine WBC (Auto) Crossmatch 02/01/20 02/01/20 02/02/20 18:15 23:35 04:33 WBC RBC Hgb Hct MCHC RDW Plt Count MCH Lymph % (Auto) Lymph # Lymph # (Auto) Seg Neutrophils % Seg Neuts % (Manual) Lymphocytes % (Manual) Seg Neutrophils # Seg Neutrophils # Man Basophils % (Manual) Nucleated RBC % Lymphocytes # (Manual) Monocytes # (Manual) Basophils # (Manual) PT INR Heparin Anti-Xa Level POC ABG pO2 ABG pH 7.549 H ABG Hemoglobin 9.8 L ABG Oxyhemoglobin ABG pO2 ABG HCO3 ABG O2 Saturation ABG Base Excess ABG Sodium ABG Potassium ABG Chloride ABG Glucose Oxyhemoglobin Sodium Potassium Chloride Carbon Dioxide BUN Creatinine Glucose POC Glucose 226 H 252 H Lactic Acid Calcium AST Phosphorus Total Protein Albumin C-Reactive Protein Arterial Blood Glucose Arterial Blood Ionized Calcium Urine WBC (Auto) Crossmatch 02/02/20 02/02/20 02/02/20 05:25 05:25 05:40 WBC 15.5 H RBC 2.43 L Hgb 7.6 L Hct 22.9 L MCHC RDW 23.6 H Plt Count MCH Lymph % (Auto) Lymph # Lymph # (Auto) Seg Neutrophils % Seg Neuts % (Manual) 89.0 H Lymphocytes % (Manual) 3.0 L Seg Neutrophils # Seg Neutrophils # Man 13.8 H Basophils % (Manual) Nucleated RBC % Lymphocytes # (Manual) 0.5 L Monocytes # (Manual) 0.9 H Basophils # (Manual) PT INR Heparin Anti-Xa Level POC ABG pO2 ABG pH ABG Hemoglobin ABG Oxyhemoglobin ABG pO2 ABG HCO3 ABG O2 Saturation ABG Base Excess ABG Sodium ABG Potassium ABG Chloride ABG Glucose Oxyhemoglobin Sodium Potassium 2.6 L* Chloride Carbon Dioxide 33 H BUN 26 H Creatinine Glucose 175 H POC Glucose 181 H Lactic Acid Calcium 7.9 L AST Phosphorus Total Protein Albumin C-Reactive Protein Arterial Blood Glucose Arterial Blood Ionized Calcium Urine WBC (Auto) Crossmatch 02/02/20 02/02/20 02/02/20 11:55 14:45 17:18 WBC RBC Hgb Hct MCHC RDW Plt Count MCH Lymph % (Auto) Lymph # Lymph # (Auto) Seg Neutrophils % Seg Neuts % (Manual) Lymphocytes % (Manual) Seg Neutrophils # Seg Neutrophils # Man Basophils % (Manual) Nucleated RBC % Lymphocytes # (Manual) Monocytes # (Manual) Basophils # (Manual) PT INR Heparin Anti-Xa Level POC ABG pO2 ABG pH 7.56 H ABG Hemoglobin 7.6 L ABG Oxyhemoglobin ABG pO2 ABG HCO3 ABG O2 Saturation ABG Base Excess ABG Sodium ABG Potassium ABG Chloride ABG Glucose Oxyhemoglobin Sodium Potassium Chloride Carbon Dioxide BUN Creatinine Glucose POC Glucose 226 H 227 H Lactic Acid Calcium AST Phosphorus Total Protein Albumin C-Reactive Protein Arterial Blood Glucose Arterial Blood Ionized Calcium Urine WBC (Auto) Crossmatch 02/02/20 02/03/20 02/03/20 20:54 00:02 05:14 WBC 18.7 H RBC 2.45 L Hgb 7.6 L Hct 23.2 L MCHC RDW 23.5 H Plt Count MCH Lymph % (Auto) Lymph # Lymph # (Auto) Seg Neutrophils % Seg Neuts % (Manual) 94.0 H Lymphocytes % (Manual) 3.0 L Seg Neutrophils # Seg Neutrophils # Man 17.6 H Basophils % (Manual) Nucleated RBC % Lymphocytes # (Manual) 0.6 L Monocytes # (Manual) Basophils # (Manual) PT INR Heparin Anti-Xa Level POC ABG pO2 ABG pH ABG Hemoglobin ABG Oxyhemoglobin ABG pO2 ABG HCO3 ABG O2 Saturation ABG Base Excess ABG Sodium ABG Potassium ABG Chloride ABG Glucose Oxyhemoglobin Sodium Potassium 3.2 L D Chloride Carbon Dioxide BUN Creatinine Glucose POC Glucose 204 H Lactic Acid Calcium AST Phosphorus Total Protein Albumin C-Reactive Protein Arterial Blood Glucose Arterial Blood Ionized Calcium Urine WBC (Auto) Crossmatch 02/03/20 02/03/20 02/03/20 05:14 05:14 05:20 WBC RBC Hgb Hct MCHC RDW Plt Count MCH Lymph % (Auto) Lymph # Lymph # (Auto) Seg Neutrophils % Seg Neuts % (Manual) Lymphocytes % (Manual) Seg Neutrophils # Seg Neutrophils # Man Basophils % (Manual) Nucleated RBC % Lymphocytes # (Manual) Monocytes # (Manual) Basophils # (Manual) PT INR Heparin Anti-Xa Level POC ABG pO2 ABG pH ABG Hemoglobin ABG Oxyhemoglobin ABG pO2 ABG HCO3 ABG O2 Saturation ABG Base Excess ABG Sodium ABG Potassium ABG Chloride ABG Glucose Oxyhemoglobin Sodium Potassium 3.1 L Chloride Carbon Dioxide 33 H BUN 29 H Creatinine 0.5 L Glucose 160 H POC Glucose 146 H Lactic Acid Calcium 7.9 L AST Phosphorus 2.30 L Total Protein 4.8 L Albumin 2.4 L C-Reactive Protein Arterial Blood Glucose Arterial Blood Ionized Calcium Urine WBC (Auto) Crossmatch 02/03/20 02/03/20 02/03/20 12:35 18:14 23:26 WBC RBC Hgb Hct MCHC RDW Plt Count MCH Lymph % (Auto) Lymph # Lymph # (Auto) Seg Neutrophils % Seg Neuts % (Manual) Lymphocytes % (Manual) Seg Neutrophils # Seg Neutrophils # Man Basophils % (Manual) Nucleated RBC % Lymphocytes # (Manual) Monocytes # (Manual) Basophils # (Manual) PT INR Heparin Anti-Xa Level POC ABG pO2 ABG pH ABG Hemoglobin ABG Oxyhemoglobin ABG pO2 ABG HCO3 ABG O2 Saturation ABG Base Excess ABG Sodium ABG Potassium ABG Chloride ABG Glucose Oxyhemoglobin Sodium Potassium Chloride Carbon Dioxide BUN Creatinine Glucose POC Glucose 219 H 248 H 173 H Lactic Acid Calcium AST Phosphorus Total Protein Albumin C-Reactive Protein Arterial Blood Glucose Arterial Blood Ionized Calcium Urine WBC (Auto) Crossmatch 02/04/20 02/04/20 02/04/20 05:34 05:36 06:51 WBC RBC Hgb Hct MCHC RDW Plt Count MCH Lymph % (Auto) Lymph # Lymph # (Auto) Seg Neutrophils % Seg Neuts % (Manual) Lymphocytes % (Manual) Seg Neutrophils # Seg Neutrophils # Man Basophils % (Manual) Nucleated RBC % Lymphocytes # (Manual) Monocytes # (Manual) Basophils # (Manual) PT INR Heparin Anti-Xa Level POC ABG pO2 ABG pH ABG Hemoglobin ABG Oxyhemoglobin ABG pO2 ABG HCO3 ABG O2 Saturation ABG Base Excess ABG Sodium ABG Potassium ABG Chloride ABG Glucose Oxyhemoglobin Sodium Potassium Chloride Carbon Dioxide BUN Creatinine Glucose POC Glucose 56 L 64 L 127 H Lactic Acid Calcium AST Phosphorus Total Protein Albumin C-Reactive Protein Arterial Blood Glucose Arterial Blood Ionized Calcium Urine WBC (Auto) Crossmatch 02/04/20 02/04/20 02/04/20 11:57 13:42 13:53 WBC 19.2 H RBC 2.48 L Hgb 7.8 L Hct 23.5 L MCHC RDW 24.2 H Plt Count MCH Lymph % (Auto) Lymph # Lymph # (Auto) Seg Neutrophils % Seg Neuts % (Manual) 97.0 H Lymphocytes % (Manual) 2.0 L Seg Neutrophils # Seg Neutrophils # Man 18.6 H Basophils % (Manual) Nucleated RBC % Lymphocytes # (Manual) 0.4 L Monocytes # (Manual) Basophils # (Manual) PT INR Heparin Anti-Xa Level POC ABG pO2 118.2 H ABG pH 7.525 H ABG Hemoglobin 8.7 L ABG Oxyhemoglobin ABG pO2 ABG HCO3 ABG O2 Saturation ABG Base Excess ABG Sodium ABG Potassium 2.8 L ABG Chloride ABG Glucose 185 H Oxyhemoglobin Sodium Potassium Chloride Carbon Dioxide BUN Creatinine Glucose POC Glucose 224 H Lactic Acid Calcium AST Phosphorus Total Protein Albumin C-Reactive Protein Arterial Blood Glucose 185 H Arterial Blood Ionized Calcium 4.5 L Urine WBC (Auto) Crossmatch 02/04/20 02/04/20 02/04/20 13:53 18:15 23:35 WBC RBC Hgb Hct MCHC RDW Plt Count MCH Lymph % (Auto) Lymph # Lymph # (Auto) Seg Neutrophils % Seg Neuts % (Manual) Lymphocytes % (Manual) Seg Neutrophils # Seg Neutrophils # Man Basophils % (Manual) Nucleated RBC % Lymphocytes # (Manual) Monocytes # (Manual) Basophils # (Manual) PT INR Heparin Anti-Xa Level POC ABG pO2 ABG pH ABG Hemoglobin ABG Oxyhemoglobin ABG pO2 ABG HCO3 ABG O2 Saturation ABG Base Excess ABG Sodium ABG Potassium ABG Chloride ABG Glucose Oxyhemoglobin Sodium 147 H Potassium 2.8 L* Chloride Carbon Dioxide 38 H BUN 33 H Creatinine 0.5 L Glucose 202 H POC Glucose 215 H 197 H Lactic Acid Calcium AST Phosphorus Total Protein Albumin C-Reactive Protein Arterial Blood Glucose Arterial Blood Ionized Calcium Urine WBC (Auto) Crossmatch 02/05/20 02/05/20 02/05/20 01:03 04:00 04:00 WBC 26.7 H RBC 2.59 L Hgb 8.1 L Hct 24.6 L MCHC RDW 24.1 H Plt Count MCH Lymph % (Auto) 1.6 L Lymph # Lymph # (Auto) 0.4 L Seg Neutrophils % Seg Neuts % (Manual) Lymphocytes % (Manual) Seg Neutrophils # 25.9 H Seg Neutrophils # Man Basophils % (Manual) Nucleated RBC % Lymphocytes # (Manual) Monocytes # (Manual) Basophils # (Manual) PT INR Heparin Anti-Xa Level POC ABG pO2 ABG pH ABG Hemoglobin 7.1 L ABG Oxyhemoglobin ABG pO2 50.7 L ABG HCO3 29.6 H ABG O2 Saturation 82.7 L ABG Base Excess 4.8 H ABG Sodium ABG Potassium ABG Chloride ABG Glucose Oxyhemoglobin 81.0 L Sodium 146 H Potassium Chloride Carbon Dioxide 32 H BUN 35 H Creatinine 0.5 L Glucose 226 H POC Glucose Lactic Acid Calcium AST Phosphorus Total Protein 5.1 L Albumin 2.2 L C-Reactive Protein Arterial Blood Glucose Arterial Blood Ionized Calcium Urine WBC (Auto) Crossmatch 02/05/20 02/05/20 02/06/20 05:32 17:56 00:19 WBC RBC Hgb Hct MCHC RDW Plt Count MCH Lymph % (Auto) Lymph # Lymph # (Auto) Seg Neutrophils % Seg Neuts % (Manual) Lymphocytes % (Manual) Seg Neutrophils # Seg Neutrophils # Man Basophils % (Manual) Nucleated RBC % Lymphocytes # (Manual) Monocytes # (Manual) Basophils # (Manual) PT INR Heparin Anti-Xa Level POC ABG pO2 ABG pH ABG Hemoglobin ABG Oxyhemoglobin ABG pO2 ABG HCO3 ABG O2 Saturation ABG Base Excess ABG Sodium ABG Potassium ABG Chloride ABG Glucose Oxyhemoglobin Sodium Potassium Chloride Carbon Dioxide BUN Creatinine Glucose POC Glucose 239 H 175 H 309 H Lactic Acid Calcium AST Phosphorus Total Protein Albumin C-Reactive Protein Arterial Blood Glucose Arterial Blood Ionized Calcium Urine WBC (Auto) Crossmatch 02/06/20 02/06/20 02/06/20 04:26 04:27 05:11 WBC RBC Hgb Hct MCHC RDW Plt Count MCH Lymph % (Auto) Lymph # Lymph # (Auto) Seg Neutrophils % Seg Neuts % (Manual) Lymphocytes % (Manual) Seg Neutrophils # Seg Neutrophils # Man Basophils % (Manual) Nucleated RBC % Lymphocytes # (Manual) Monocytes # (Manual) Basophils # (Manual) PT INR Heparin Anti-Xa Level POC ABG pO2 175.3 H 157.2 H ABG pH 7.502 H 7.551 H ABG Hemoglobin 10.8 L 7.3 L ABG Oxyhemoglobin 98.3 H ABG pO2 ABG HCO3 ABG O2 Saturation ABG Base Excess ABG Sodium ABG Potassium 3.3 L ABG Chloride 109.0 H ABG Glucose 148 H Oxyhemoglobin Sodium 148 H Potassium 3.0 L Chloride 107.3 H Carbon Dioxide 33 H BUN 33 H Creatinine 0.5 L Glucose 283 H POC Glucose Lactic Acid Calcium 7.9 L AST Phosphorus Total Protein 3.6 L D Albumin 1.2 L C-Reactive Protein Arterial Blood Glucose 148 H Arterial Blood Ionized Calcium Urine WBC (Auto) Crossmatch 02/06/20 02/06/20 02/06/20 05:40 08:45 11:52 WBC 16.3 H RBC 2.12 L Hgb 6.6 L Hct 20.3 L MCHC RDW 24.4 H Plt Count MCH Lymph % (Auto) Lymph # Lymph # (Auto) Seg Neutrophils % Seg Neuts % (Manual) 98.0 H Lymphocytes % (Manual) 1.0 L Seg Neutrophils # Seg Neutrophils # Man 16.0 H Basophils % (Manual) Nucleated RBC % Lymphocytes # (Manual) 0.2 L Monocytes # (Manual) Basophils # (Manual) PT INR Heparin Anti-Xa Level POC ABG pO2 ABG pH ABG Hemoglobin ABG Oxyhemoglobin ABG pO2 ABG HCO3 ABG O2 Saturation ABG Base Excess ABG Sodium ABG Potassium ABG Chloride ABG Glucose Oxyhemoglobin Sodium Potassium Chloride Carbon Dioxide BUN Creatinine Glucose POC Glucose 347 H 132 H Lactic Acid Calcium AST Phosphorus Total Protein Albumin C-Reactive Protein Arterial Blood Glucose Arterial Blood Ionized Calcium Urine WBC (Auto) Crossmatch 02/06/20 02/07/20 02/07/20 18:26 00:08 05:41 WBC RBC Hgb Hct MCHC RDW Plt Count MCH Lymph % (Auto) Lymph # Lymph # (Auto) Seg Neutrophils % Seg Neuts % (Manual) Lymphocytes % (Manual) Seg Neutrophils # Seg Neutrophils # Man Basophils % (Manual) Nucleated RBC % Lymphocytes # (Manual) Monocytes # (Manual) Basophils # (Manual) PT INR Heparin Anti-Xa Level POC ABG pO2 ABG pH ABG Hemoglobin ABG Oxyhemoglobin ABG pO2 ABG HCO3 ABG O2 Saturation ABG Base Excess ABG Sodium ABG Potassium ABG Chloride ABG Glucose Oxyhemoglobin Sodium Potassium Chloride Carbon Dioxide BUN Creatinine Glucose POC Glucose 114 H 111 H 164 H Lactic Acid Calcium AST Phosphorus Total Protein Albumin C-Reactive Protein Arterial Blood Glucose Arterial Blood Ionized Calcium Urine WBC (Auto) Crossmatch 02/07/20 02/07/20 02/07/20 11:49 17:56 23:27 WBC RBC Hgb Hct MCHC RDW Plt Count MCH Lymph % (Auto) Lymph # Lymph # (Auto) Seg Neutrophils % Seg Neuts % (Manual) Lymphocytes % (Manual) Seg Neutrophils # Seg Neutrophils # Man Basophils % (Manual) Nucleated RBC % Lymphocytes # (Manual) Monocytes # (Manual) Basophils # (Manual) PT INR Heparin Anti-Xa Level POC ABG pO2 ABG pH ABG Hemoglobin ABG Oxyhemoglobin ABG pO2 ABG HCO3 ABG O2 Saturation ABG Base Excess ABG Sodium ABG Potassium ABG Chloride ABG Glucose Oxyhemoglobin Sodium Potassium Chloride Carbon Dioxide BUN Creatinine Glucose POC Glucose 146 H 140 H 164 H Lactic Acid Calcium AST Phosphorus Total Protein Albumin C-Reactive Protein Arterial Blood Glucose Arterial Blood Ionized Calcium Urine WBC (Auto) Crossmatch 02/08/20 02/08/20 02/08/20 03:55 04:46 04:46 WBC RBC 2.30 L Hgb 7.3 L Hct 22.0 L MCHC RDW 23.9 H Plt Count MCH Lymph % (Auto) 8.5 L Lymph # Lymph # (Auto) 0.8 L Seg Neutrophils % 87.6 H Seg Neuts % (Manual) Lymphocytes % (Manual) Seg Neutrophils # 8.7 H Seg Neutrophils # Man Basophils % (Manual) Nucleated RBC % Lymphocytes # (Manual) Monocytes # (Manual) Basophils # (Manual) PT INR Heparin Anti-Xa Level POC ABG pO2 112.8 H ABG pH 7.511 H ABG Hemoglobin 7.8 L ABG Oxyhemoglobin ABG pO2 ABG HCO3 ABG O2 Saturation ABG Base Excess ABG Sodium ABG Potassium 2.9 L ABG Chloride ABG Glucose 112 H Oxyhemoglobin Sodium Potassium 3.1 L Chloride Carbon Dioxide 31 H BUN 29 H Creatinine 0.3 L Glucose 108 H POC Glucose Lactic Acid Calcium AST Phosphorus Total Protein Albumin C-Reactive Protein Arterial Blood Glucose 112 H Arterial Blood Ionized Calcium Urine WBC (Auto) Crossmatch 02/08/20 02/08/20 02/08/20 05:31 10:15 12:10 WBC RBC Hgb Hct MCHC RDW Plt Count MCH Lymph % (Auto) Lymph # Lymph # (Auto) Seg Neutrophils % Seg Neuts % (Manual) Lymphocytes % (Manual) Seg Neutrophils # Seg Neutrophils # Man Basophils % (Manual) Nucleated RBC % Lymphocytes # (Manual) Monocytes # (Manual) Basophils # (Manual) PT INR Heparin Anti-Xa Level POC ABG pO2 ABG pH ABG Hemoglobin ABG Oxyhemoglobin ABG pO2 ABG HCO3 ABG O2 Saturation ABG Base Excess ABG Sodium ABG Potassium ABG Chloride ABG Glucose Oxyhemoglobin Sodium Potassium Chloride Carbon Dioxide BUN Creatinine Glucose POC Glucose 117 H 164 H 170 H Lactic Acid Calcium AST Phosphorus Total Protein Albumin C-Reactive Protein Arterial Blood Glucose Arterial Blood Ionized Calcium Urine WBC (Auto) Crossmatch 02/08/20 02/08/20 02/09/20 12:23 23:50 03:04 WBC RBC Hgb Hct MCHC RDW Plt Count MCH Lymph % (Auto) Lymph # Lymph # (Auto) Seg Neutrophils % Seg Neuts % (Manual) Lymphocytes % (Manual) Seg Neutrophils # Seg Neutrophils # Man Basophils % (Manual) Nucleated RBC % Lymphocytes # (Manual) Monocytes # (Manual) Basophils # (Manual) PT INR Heparin Anti-Xa Level POC ABG pO2 ABG pH 7.501 H ABG Hemoglobin 7.5 L ABG Oxyhemoglobin ABG pO2 ABG HCO3 ABG O2 Saturation ABG Base Excess ABG Sodium ABG Potassium ABG Chloride ABG Glucose 143 H Oxyhemoglobin Sodium Potassium Chloride Carbon Dioxide BUN Creatinine Glucose POC Glucose 164 H 126 H Lactic Acid Calcium AST Phosphorus Total Protein Albumin C-Reactive Protein Arterial Blood Glucose 143 H Arterial Blood Ionized Calcium Urine WBC (Auto) Crossmatch 02/09/20 02/09/20 02/09/20 05:57 08:00 12:39 WBC RBC Hgb Hct MCHC RDW Plt Count MCH Lymph % (Auto) Lymph # Lymph # (Auto) Seg Neutrophils % Seg Neuts % (Manual) Lymphocytes % (Manual) Seg Neutrophils # Seg Neutrophils # Man Basophils % (Manual) Nucleated RBC % Lymphocytes # (Manual) Monocytes # (Manual) Basophils # (Manual) PT INR Heparin Anti-Xa Level POC ABG pO2 ABG pH ABG Hemoglobin ABG Oxyhemoglobin ABG pO2 ABG HCO3 ABG O2 Saturation ABG Base Excess ABG Sodium ABG Potassium ABG Chloride ABG Glucose Oxyhemoglobin Sodium Potassium 3.3 L Chloride Carbon Dioxide 34 H BUN 27 H Creatinine 0.4 L Glucose 127 H POC Glucose 160 H 154 H Lactic Acid Calcium 8.2 L AST Phosphorus Total Protein Albumin C-Reactive Protein Arterial Blood Glucose Arterial Blood Ionized Calcium Urine WBC (Auto) Crossmatch 02/09/20 02/09/20 02/09/20 18:17 23:43 Unknown WBC RBC 2.15 L Hgb 7.0 L Hct 20.8 L MCHC RDW 23.3 H Plt Count MCH 33 H Lymph % (Auto) Lymph # Lymph # (Auto) Seg Neutrophils % Seg Neuts % (Manual) Lymphocytes % (Manual) Seg Neutrophils # Seg Neutrophils # Man Basophils % (Manual) Nucleated RBC % Lymphocytes # (Manual) Monocytes # (Manual) Basophils # (Manual) PT INR Heparin Anti-Xa Level POC ABG pO2 ABG pH ABG Hemoglobin ABG Oxyhemoglobin ABG pO2 ABG HCO3 ABG O2 Saturation ABG Base Excess ABG Sodium ABG Potassium ABG Chloride ABG Glucose Oxyhemoglobin Sodium Potassium Chloride Carbon Dioxide BUN Creatinine Glucose POC Glucose 152 H 177 H Lactic Acid Calcium AST Phosphorus Total Protein Albumin C-Reactive Protein Arterial Blood Glucose Arterial Blood Ionized Calcium Urine WBC (Auto) Crossmatch 02/10/20 02/10/20 02/10/20 04:38 05:24 11:44 WBC RBC Hgb Hct MCHC RDW Plt Count MCH Lymph % (Auto) Lymph # Lymph # (Auto) Seg Neutrophils % Seg Neuts % (Manual) Lymphocytes % (Manual) Seg Neutrophils # Seg Neutrophils # Man Basophils % (Manual) Nucleated RBC % Lymphocytes # (Manual) Monocytes # (Manual) Basophils # (Manual) PT INR Heparin Anti-Xa Level POC ABG pO2 ABG pH 7.502 H ABG Hemoglobin 6.2 L ABG Oxyhemoglobin ABG pO2 136.0 H ABG HCO3 29.3 H ABG O2 Saturation ABG Base Excess 5.7 H ABG Sodium ABG Potassium ABG Chloride ABG Glucose Oxyhemoglobin Sodium Potassium Chloride Carbon Dioxide BUN Creatinine Glucose POC Glucose 113 H 176 H Lactic Acid Calcium AST Phosphorus Total Protein Albumin C-Reactive Protein Arterial Blood Glucose Arterial Blood Ionized Calcium Urine WBC (Auto) Crossmatch 02/10/20 02/11/20 02/11/20 23:42 03:43 04:12 WBC RBC 2.12 L Hgb 6.9 L Hct 20.6 L MCHC RDW 23.4 H Plt Count MCH 33 H Lymph % (Auto) Lymph # Lymph # (Auto) Seg Neutrophils % 84.7 H Seg Neuts % (Manual) 83.0 H Lymphocytes % (Manual) 11.0 L Seg Neutrophils # Seg Neutrophils # Man Basophils % (Manual) Nucleated RBC % Lymphocytes # (Manual) 1.0 L Monocytes # (Manual) Basophils # (Manual) PT INR Heparin Anti-Xa Level POC ABG pO2 112.6 H ABG pH 7.480 H ABG Hemoglobin 7.2 L ABG Oxyhemoglobin ABG pO2 ABG HCO3 ABG O2 Saturation ABG Base Excess ABG Sodium ABG Potassium ABG Chloride ABG Glucose 154 H Oxyhemoglobin Sodium Potassium Chloride Carbon Dioxide BUN Creatinine Glucose POC Glucose 149 H Lactic Acid Calcium AST Phosphorus Total Protein Albumin C-Reactive Protein Arterial Blood Glucose 154 H Arterial Blood Ionized Calcium Urine WBC (Auto) Crossmatch 02/11/20 02/11/20 02/11/20 04:12 05:50 08:22 WBC RBC Hgb Hct MCHC RDW Plt Count MCH Lymph % (Auto) Lymph # Lymph # (Auto) Seg Neutrophils % Seg Neuts % (Manual) Lymphocytes % (Manual) Seg Neutrophils # Seg Neutrophils # Man Basophils % (Manual) Nucleated RBC % Lymphocytes # (Manual) Monocytes # (Manual) Basophils # (Manual) PT INR Heparin Anti-Xa Level POC ABG pO2 ABG pH ABG Hemoglobin ABG Oxyhemoglobin ABG pO2 ABG HCO3 ABG O2 Saturation ABG Base Excess ABG Sodium ABG Potassium ABG Chloride ABG Glucose Oxyhemoglobin Sodium 146 H Potassium Chloride Carbon Dioxide BUN 24 H Creatinine 0.4 L Glucose 168 H POC Glucose 190 H Lactic Acid Calcium 8.0 L AST Phosphorus Total Protein Albumin C-Reactive Protein Arterial Blood Glucose Arterial Blood Ionized Calcium Urine WBC (Auto) Crossmatch See Detail 02/11/20 02/11/20 02/11/20 11:41 17:33 23:40 WBC RBC Hgb Hct MCHC RDW Plt Count MCH Lymph % (Auto) Lymph # Lymph # (Auto) Seg Neutrophils % Seg Neuts % (Manual) Lymphocytes % (Manual) Seg Neutrophils # Seg Neutrophils # Man Basophils % (Manual) Nucleated RBC % Lymphocytes # (Manual) Monocytes # (Manual) Basophils # (Manual) PT INR Heparin Anti-Xa Level POC ABG pO2 ABG pH ABG Hemoglobin ABG Oxyhemoglobin ABG pO2 ABG HCO3 ABG O2 Saturation ABG Base Excess ABG Sodium ABG Potassium ABG Chloride ABG Glucose Oxyhemoglobin Sodium Potassium Chloride Carbon Dioxide BUN Creatinine Glucose POC Glucose 260 H 132 H 54 L Lactic Acid Calcium AST Phosphorus Total Protein Albumin C-Reactive Protein Arterial Blood Glucose Arterial Blood Ionized Calcium Urine WBC (Auto) Crossmatch 02/12/20 02/12/20 02/12/20 05:16 06:45 11:48 WBC RBC Hgb 8.6 L Hct 25.2 L MCHC RDW Plt Count MCH Lymph % (Auto) Lymph # Lymph # (Auto) Seg Neutrophils % Seg Neuts % (Manual) Lymphocytes % (Manual) Seg Neutrophils # Seg Neutrophils # Man Basophils % (Manual) Nucleated RBC % Lymphocytes # (Manual) Monocytes # (Manual) Basophils # (Manual) PT INR Heparin Anti-Xa Level POC ABG pO2 ABG pH ABG Hemoglobin ABG Oxyhemoglobin ABG pO2 ABG HCO3 ABG O2 Saturation ABG Base Excess ABG Sodium ABG Potassium ABG Chloride ABG Glucose Oxyhemoglobin Sodium Potassium Chloride Carbon Dioxide BUN Creatinine Glucose POC Glucose 127 H 163 H Lactic Acid Calcium AST Phosphorus Total Protein Albumin C-Reactive Protein Arterial Blood Glucose Arterial Blood Ionized Calcium Urine WBC (Auto) Crossmatch 02/12/20 02/12/20 02/13/20 17:25 23:53 04:30 WBC RBC Hgb Hct MCHC RDW Plt Count MCH Lymph % (Auto) Lymph # Lymph # (Auto) Seg Neutrophils % Seg Neuts % (Manual) Lymphocytes % (Manual) Seg Neutrophils # Seg Neutrophils # Man Basophils % (Manual) Nucleated RBC % Lymphocytes # (Manual) Monocytes # (Manual) Basophils # (Manual) PT INR Heparin Anti-Xa Level POC ABG pO2 ABG pH 7.463 H ABG Hemoglobin ABG Oxyhemoglobin ABG pO2 98.4 H ABG HCO3 27.7 H ABG O2 Saturation ABG Base Excess 3.7 H ABG Sodium ABG Potassium ABG Chloride ABG Glucose Oxyhemoglobin Sodium Potassium Chloride Carbon Dioxide BUN Creatinine Glucose POC Glucose 152 H 140 H Lactic Acid Calcium AST Phosphorus Total Protein Albumin C-Reactive Protein Arterial Blood Glucose Arterial Blood Ionized Calcium Urine WBC (Auto) Crossmatch 02/13/20 02/13/20 02/13/20 04:45 04:45 05:19 WBC RBC 2.73 L Hgb 8.7 L Hct 25.6 L MCHC RDW 21.3 H Plt Count MCH Lymph % (Auto) 12.0 L Lymph # Lymph # (Auto) 1.0 L Seg Neutrophils % 82.5 H Seg Neuts % (Manual) Lymphocytes % (Manual) Seg Neutrophils # Seg Neutrophils # Man Basophils % (Manual) Nucleated RBC % Lymphocytes # (Manual) Monocytes # (Manual) Basophils # (Manual) PT INR Heparin Anti-Xa Level POC ABG pO2 ABG pH ABG Hemoglobin ABG Oxyhemoglobin ABG pO2 ABG HCO3 ABG O2 Saturation ABG Base Excess ABG Sodium ABG Potassium ABG Chloride ABG Glucose Oxyhemoglobin Sodium Potassium 3.4 L Chloride Carbon Dioxide 31 H BUN 24 H Creatinine 0.3 L Glucose 122 H POC Glucose 127 H Lactic Acid Calcium 8.0 L AST Phosphorus Total Protein 4.2 L Albumin 2.0 L C-Reactive Protein Arterial Blood Glucose Arterial Blood Ionized Calcium Urine WBC (Auto) Crossmatch 02/13/20 02/14/20 02/14/20 23:08 04:26 04:26 WBC RBC 2.74 L Hgb 8.7 L Hct 25.8 L MCHC RDW 21.3 H Plt Count MCH Lymph % (Auto) 13.2 L Lymph # Lymph # (Auto) Seg Neutrophils % 81.4 H Seg Neuts % (Manual) Lymphocytes % (Manual) Seg Neutrophils # 8.4 H Seg Neutrophils # Man Basophils % (Manual) Nucleated RBC % Lymphocytes # (Manual) Monocytes # (Manual) Basophils # (Manual) PT INR Heparin Anti-Xa Level POC ABG pO2 ABG pH ABG Hemoglobin ABG Oxyhemoglobin ABG pO2 ABG HCO3 ABG O2 Saturation ABG Base Excess ABG Sodium ABG Potassium ABG Chloride ABG Glucose Oxyhemoglobin Sodium Potassium 3.4 L Chloride 107.6 H Carbon Dioxide BUN 20 H Creatinine 0.3 L Glucose 170 H POC Glucose 148 H Lactic Acid Calcium 8.2 L AST Phosphorus Total Protein Albumin C-Reactive Protein Arterial Blood Glucose Arterial Blood Ionized Calcium Urine WBC (Auto) Crossmatch 02/14/20 02/14/20 02/14/20 05:05 12:08 17:37 WBC RBC Hgb Hct MCHC RDW Plt Count MCH Lymph % (Auto) Lymph # Lymph # (Auto) Seg Neutrophils % Seg Neuts % (Manual) Lymphocytes % (Manual) Seg Neutrophils # Seg Neutrophils # Man Basophils % (Manual) Nucleated RBC % Lymphocytes # (Manual) Monocytes # (Manual) Basophils # (Manual) PT INR Heparin Anti-Xa Level POC ABG pO2 ABG pH ABG Hemoglobin ABG Oxyhemoglobin ABG pO2 ABG HCO3 ABG O2 Saturation ABG Base Excess ABG Sodium ABG Potassium ABG Chloride ABG Glucose Oxyhemoglobin Sodium Potassium Chloride Carbon Dioxide BUN Creatinine Glucose POC Glucose 182 H 156 H 144 H Lactic Acid Calcium AST Phosphorus Total Protein Albumin C-Reactive Protein Arterial Blood Glucose Arterial Blood Ionized Calcium Urine WBC (Auto) Crossmatch 02/14/20 02/15/20 02/15/20 23:36 05:44 12:11 WBC RBC Hgb Hct MCHC RDW Plt Count MCH Lymph % (Auto) Lymph # Lymph # (Auto) Seg Neutrophils % Seg Neuts % (Manual) Lymphocytes % (Manual) Seg Neutrophils # Seg Neutrophils # Man Basophils % (Manual) Nucleated RBC % Lymphocytes # (Manual) Monocytes # (Manual) Basophils # (Manual) PT INR Heparin Anti-Xa Level POC ABG pO2 ABG pH ABG Hemoglobin ABG Oxyhemoglobin ABG pO2 ABG HCO3 ABG O2 Saturation ABG Base Excess ABG Sodium ABG Potassium ABG Chloride ABG Glucose Oxyhemoglobin Sodium Potassium Chloride Carbon Dioxide BUN Creatinine Glucose POC Glucose 183 H 203 H 140 H Lactic Acid Calcium AST Phosphorus Total Protein Albumin C-Reactive Protein Arterial Blood Glucose Arterial Blood Ionized Calcium Urine WBC (Auto) Crossmatch 02/15/20 02/16/20 02/16/20 17:23 00:12 05:09 WBC RBC Hgb 8.8 L Hct 26.0 L MCHC RDW Plt Count MCH Lymph % (Auto) Lymph # Lymph # (Auto) Seg Neutrophils % Seg Neuts % (Manual) Lymphocytes % (Manual) Seg Neutrophils # Seg Neutrophils # Man Basophils % (Manual) Nucleated RBC % Lymphocytes # (Manual) Monocytes # (Manual) Basophils # (Manual) PT INR Heparin Anti-Xa Level POC ABG pO2 ABG pH ABG Hemoglobin ABG Oxyhemoglobin ABG pO2 ABG HCO3 ABG O2 Saturation ABG Base Excess ABG Sodium ABG Potassium ABG Chloride ABG Glucose Oxyhemoglobin Sodium Potassium Chloride Carbon Dioxide BUN Creatinine Glucose POC Glucose 170 H 133 H Lactic Acid Calcium AST Phosphorus Total Protein Albumin C-Reactive Protein Arterial Blood Glucose Arterial Blood Ionized Calcium Urine WBC (Auto) Crossmatch 02/16/20 02/16/20 02/16/20 05:09 05:21 12:22 WBC RBC Hgb Hct MCHC RDW Plt Count MCH Lymph % (Auto) Lymph # Lymph # (Auto) Seg Neutrophils % Seg Neuts % (Manual) Lymphocytes % (Manual) Seg Neutrophils # Seg Neutrophils # Man Basophils % (Manual) Nucleated RBC % Lymphocytes # (Manual) Monocytes # (Manual) Basophils # (Manual) PT INR Heparin Anti-Xa Level POC ABG pO2 ABG pH ABG Hemoglobin ABG Oxyhemoglobin ABG pO2 ABG HCO3 ABG O2 Saturation ABG Base Excess ABG Sodium ABG Potassium ABG Chloride ABG Glucose Oxyhemoglobin Sodium Potassium Chloride Carbon Dioxide 31 H BUN 18 H Creatinine 0.3 L Glucose 152 H POC Glucose 160 H 138 H Lactic Acid Calcium 7.9 L AST Phosphorus Total Protein Albumin C-Reactive Protein Arterial Blood Glucose Arterial Blood Ionized Calcium Urine WBC (Auto) Crossmatch 02/16/20 02/17/20 02/17/20 16:35 00:01 05:22 WBC RBC Hgb Hct MCHC RDW Plt Count MCH Lymph % (Auto) Lymph # Lymph # (Auto) Seg Neutrophils % Seg Neuts % (Manual) Lymphocytes % (Manual) Seg Neutrophils # Seg Neutrophils # Man Basophils % (Manual) Nucleated RBC % Lymphocytes # (Manual) Monocytes # (Manual) Basophils # (Manual) PT INR Heparin Anti-Xa Level POC ABG pO2 ABG pH ABG Hemoglobin ABG Oxyhemoglobin ABG pO2 ABG HCO3 ABG O2 Saturation ABG Base Excess ABG Sodium ABG Potassium ABG Chloride ABG Glucose Oxyhemoglobin Sodium Potassium Chloride Carbon Dioxide BUN Creatinine Glucose POC Glucose 142 H 173 H 126 H Lactic Acid Calcium AST Phosphorus Total Protein Albumin C-Reactive Protein Arterial Blood Glucose Arterial Blood Ionized Calcium Urine WBC (Auto) Crossmatch 02/17/20 02/17/20 02/18/20 11:35 18:08 00:15 WBC RBC Hgb Hct MCHC RDW Plt Count MCH Lymph % (Auto) Lymph # Lymph # (Auto) Seg Neutrophils % Seg Neuts % (Manual) Lymphocytes % (Manual) Seg Neutrophils # Seg Neutrophils # Man Basophils % (Manual) Nucleated RBC % Lymphocytes # (Manual) Monocytes # (Manual) Basophils # (Manual) PT INR Heparin Anti-Xa Level POC ABG pO2 ABG pH ABG Hemoglobin ABG Oxyhemoglobin ABG pO2 ABG HCO3 ABG O2 Saturation ABG Base Excess ABG Sodium ABG Potassium ABG Chloride ABG Glucose Oxyhemoglobin Sodium Potassium Chloride Carbon Dioxide BUN Creatinine Glucose POC Glucose 113 H 136 H 160 H Lactic Acid Calcium AST Phosphorus Total Protein Albumin C-Reactive Protein Arterial Blood Glucose Arterial Blood Ionized Calcium Urine WBC (Auto) Crossmatch 02/18/20 02/18/20 02/18/20 04:43 04:43 05:30 WBC RBC 3.24 L Hgb Hct MCHC RDW 20.1 H Plt Count 455 H MCH Lymph % (Auto) Lymph # Lymph # (Auto) Seg Neutrophils % Seg Neuts % (Manual) Lymphocytes % (Manual) Seg Neutrophils # Seg Neutrophils # Man Basophils % (Manual) Nucleated RBC % Lymphocytes # (Manual) Monocytes # (Manual) Basophils # (Manual) PT INR Heparin Anti-Xa Level POC ABG pO2 ABG pH ABG Hemoglobin ABG Oxyhemoglobin ABG pO2 ABG HCO3 ABG O2 Saturation ABG Base Excess ABG Sodium ABG Potassium ABG Chloride ABG Glucose Oxyhemoglobin Sodium Potassium Chloride Carbon Dioxide BUN Creatinine 0.3 L Glucose 118 H POC Glucose 139 H Lactic Acid Calcium AST Phosphorus Total Protein Albumin C-Reactive Protein Arterial Blood Glucose Arterial Blood Ionized Calcium Urine WBC (Auto) Crossmatch 02/18/20 02/18/20 02/19/20 11:55 17:51 00:00 WBC RBC Hgb Hct MCHC RDW Plt Count MCH Lymph % (Auto) Lymph # Lymph # (Auto) Seg Neutrophils % Seg Neuts % (Manual) Lymphocytes % (Manual) Seg Neutrophils # Seg Neutrophils # Man Basophils % (Manual) Nucleated RBC % Lymphocytes # (Manual) Monocytes # (Manual) Basophils # (Manual) PT INR Heparin Anti-Xa Level POC ABG pO2 ABG pH ABG Hemoglobin ABG Oxyhemoglobin ABG pO2 ABG HCO3 ABG O2 Saturation ABG Base Excess ABG Sodium ABG Potassium ABG Chloride ABG Glucose Oxyhemoglobin Sodium Potassium Chloride Carbon Dioxide BUN Creatinine Glucose POC Glucose 165 H 139 H 141 H Lactic Acid Calcium AST Phosphorus Total Protein Albumin C-Reactive Protein Arterial Blood Glucose Arterial Blood Ionized Calcium Urine WBC (Auto) Crossmatch 02/19/20 02/19/2020 05:45 12:20 05:36 WBC RBC Hgb Hct MCHC RDW Plt Count MCH Lymph % (Auto) Lymph # Lymph # (Auto) Seg Neutrophils % Seg Neuts % (Manual) Lymphocytes % (Manual) Seg Neutrophils # Seg Neutrophils # Man Basophils % (Manual) Nucleated RBC % Lymphocytes # (Manual) Monocytes # (Manual) Basophils # (Manual) PT INR Heparin Anti-Xa Level POC ABG pO2 ABG pH ABG Hemoglobin ABG Oxyhemoglobin ABG pO2 ABG HCO3 ABG O2 Saturation ABG Base Excess ABG Sodium ABG Potassium ABG Chloride ABG Glucose Oxyhemoglobin Sodium Potassium Chloride Carbon Dioxide BUN Creatinine Glucose POC Glucose 169 H 161 H 159 H Lactic Acid Calcium AST Phosphorus Total Protein Albumin C-Reactive Protein Arterial Blood Glucose Arterial Blood Ionized Calcium Urine WBC (Auto) Crossmatch 02/20/20 02/20/20 02/20/20 08:24 08:24 11:54 WBC RBC 2.74 L Hgb 8.7 L Hct 26.4 L MCHC RDW 19.4 H Plt Count MCH Lymph % (Auto) Lymph # Lymph # (Auto) Seg Neutrophils % Seg Neuts % (Manual) 79.0 H Lymphocytes % (Manual) 12.0 L Seg Neutrophils # Seg Neutrophils # Man Basophils % (Manual) 2.0 H Nucleated RBC % Lymphocytes # (Manual) 1.0 L Monocytes # (Manual) Basophils # (Manual) 0.2 H PT INR Heparin Anti-Xa Level POC ABG pO2 ABG pH ABG Hemoglobin ABG Oxyhemoglobin ABG pO2 ABG HCO3 ABG O2 Saturation ABG Base Excess ABG Sodium ABG Potassium ABG Chloride ABG Glucose Oxyhemoglobin Sodium 134 L Potassium Chloride Carbon Dioxide BUN Creatinine 0.3 L Glucose 136 H POC Glucose 172 H Lactic Acid Calcium 8.0 L AST Phosphorus Total Protein Albumin C-Reactive Protein Arterial Blood Glucose Arterial Blood Ionized Calcium Urine WBC (Auto) Crossmatch 02/20/20 02/21/20 02/21/20 23:59 05:34 12:39 WBC RBC Hgb Hct MCHC RDW Plt Count MCH Lymph % (Auto) Lymph # Lymph # (Auto) Seg Neutrophils % Seg Neuts % (Manual) Lymphocytes % (Manual) Seg Neutrophils # Seg Neutrophils # Man Basophils % (Manual) Nucleated RBC % Lymphocytes # (Manual) Monocytes # (Manual) Basophils # (Manual) PT INR Heparin Anti-Xa Level POC ABG pO2 ABG pH ABG Hemoglobin ABG Oxyhemoglobin ABG pO2 ABG HCO3 ABG O2 Saturation ABG Base Excess ABG Sodium ABG Potassium ABG Chloride ABG Glucose Oxyhemoglobin Sodium Potassium Chloride Carbon Dioxide BUN Creatinine Glucose POC Glucose 117 H 159 H 133 H Lactic Acid Calcium AST Phosphorus Total Protein Albumin C-Reactive Protein Arterial Blood Glucose Arterial Blood Ionized Calcium Urine WBC (Auto) Crossmatch 02/22/20 02/22/20 02/22/20 06:14 11:40 17:57 WBC RBC Hgb Hct MCHC RDW Plt Count MCH Lymph % (Auto) Lymph # Lymph # (Auto) Seg Neutrophils % Seg Neuts % (Manual) Lymphocytes % (Manual) Seg Neutrophils # Seg Neutrophils # Man Basophils % (Manual) Nucleated RBC % Lymphocytes # (Manual) Monocytes # (Manual) Basophils # (Manual) PT INR Heparin Anti-Xa Level POC ABG pO2 ABG pH ABG Hemoglobin ABG Oxyhemoglobin ABG pO2 ABG HCO3 ABG O2 Saturation ABG Base Excess ABG Sodium ABG Potassium ABG Chloride ABG Glucose Oxyhemoglobin Sodium Potassium Chloride Carbon Dioxide BUN Creatinine Glucose POC Glucose 139 H 147 H 131 H Lactic Acid Calcium AST Phosphorus Total Protein Albumin C-Reactive Protein Arterial Blood Glucose Arterial Blood Ionized Calcium Urine WBC (Auto) Crossmatch 02/22/20 02/23/20 02/23/20 23:50 03:16 12:07 WBC RBC Hgb Hct MCHC RDW Plt Count MCH Lymph % (Auto) Lymph # Lymph # (Auto) Seg Neutrophils % Seg Neuts % (Manual) Lymphocytes % (Manual) Seg Neutrophils # Seg Neutrophils # Man Basophils % (Manual) Nucleated RBC % Lymphocytes # (Manual) Monocytes # (Manual) Basophils # (Manual) PT INR Heparin Anti-Xa Level POC ABG pO2 ABG pH ABG Hemoglobin ABG Oxyhemoglobin ABG pO2 ABG HCO3 ABG O2 Saturation ABG Base Excess ABG Sodium ABG Potassium ABG Chloride ABG Glucose Oxyhemoglobin Sodium Potassium Chloride Carbon Dioxide BUN Creatinine Glucose POC Glucose 137 H 115 H 134 H Lactic Acid Calcium AST Phosphorus Total Protein Albumin C-Reactive Protein Arterial Blood Glucose Arterial Blood Ionized Calcium Urine WBC (Auto) Crossmatch 02/23/20 02/23/20 02/24/20 18:29 23:33 04:20 WBC 2.3 L RBC 0.97 L Hgb 3.2 L* Hct 9.2 L* MCHC 35 H RDW 18.6 H Plt Count MCH 33 H Lymph % (Auto) Lymph # Lymph # (Auto) Seg Neutrophils % Seg Neuts % (Manual) Lymphocytes % (Manual) Seg Neutrophils # Seg Neutrophils # Man Basophils % (Manual) Nucleated RBC % Lymphocytes # (Manual) Monocytes # (Manual) Basophils # (Manual) PT INR Heparin Anti-Xa Level POC ABG pO2 ABG pH ABG Hemoglobin ABG Oxyhemoglobin ABG pO2 ABG HCO3 ABG O2 Saturation ABG Base Excess ABG Sodium ABG Potassium ABG Chloride ABG Glucose Oxyhemoglobin Sodium Potassium Chloride Carbon Dioxide BUN Creatinine Glucose POC Glucose 119 H 140 H Lactic Acid Calcium AST Phosphorus Total Protein Albumin C-Reactive Protein Arterial Blood Glucose Arterial Blood Ionized Calcium Urine WBC (Auto) Crossmatch 02/24/20 02/24/20 02/24/20 04:20 06:01 07:02 WBC RBC 2.85 L Hgb 9.1 L D Hct 27.3 L D MCHC RDW 18.8 H Plt Count 538 H D MCH Lymph % (Auto) Lymph # Lymph # (Auto) Seg Neutrophils % Seg Neuts % (Manual) Lymphocytes % (Manual) Seg Neutrophils # Seg Neutrophils # Man Basophils % (Manual) Nucleated RBC % Lymphocytes # (Manual) Monocytes # (Manual) Basophils # (Manual) PT INR Heparin Anti-Xa Level POC ABG pO2 ABG pH ABG Hemoglobin ABG Oxyhemoglobin ABG pO2 ABG HCO3 ABG O2 Saturation ABG Base Excess ABG Sodium ABG Potassium ABG Chloride ABG Glucose Oxyhemoglobin Sodium Potassium Chloride 111.1 H Carbon Dioxide BUN 18 H Creatinine 0.3 L Glucose 115 H POC Glucose 123 H Lactic Acid Calcium 6.6 L D AST Phosphorus Total Protein Albumin C-Reactive Protein Arterial Blood Glucose Arterial Blood Ionized Calcium Urine WBC (Auto) Crossmatch 02/24/20 02/24/20 02/24/20 12:25 13:39 18:22 WBC RBC Hgb Hct MCHC RDW Plt Count MCH Lymph % (Auto) Lymph # Lymph # (Auto) Seg Neutrophils % Seg Neuts % (Manual) Lymphocytes % (Manual) Seg Neutrophils # Seg Neutrophils # Man Basophils % (Manual) Nucleated RBC % Lymphocytes # (Manual) Monocytes # (Manual) Basophils # (Manual) PT INR Heparin Anti-Xa Level POC ABG pO2 ABG pH 7.497 H ABG Hemoglobin 9.9 L ABG Oxyhemoglobin ABG pO2 ABG HCO3 ABG O2 Saturation ABG Base Excess ABG Sodium 135.4 L ABG Potassium ABG Chloride ABG Glucose 133 H Oxyhemoglobin Sodium Potassium Chloride Carbon Dioxide BUN Creatinine Glucose POC Glucose 128 H 128 H Lactic Acid Calcium AST Phosphorus Total Protein Albumin C-Reactive Protein Arterial Blood Glucose 133 H Arterial Blood Ionized Calcium Urine WBC (Auto) Crossmatch 02/25/20 02/25/20 00:01 06:01 WBC RBC Hgb Hct MCHC RDW Plt Count MCH Lymph % (Auto) Lymph # Lymph # (Auto) Seg Neutrophils % Seg Neuts % (Manual) Lymphocytes % (Manual) Seg Neutrophils # Seg Neutrophils # Man Basophils % (Manual) Nucleated RBC % Lymphocytes # (Manual) Monocytes # (Manual) Basophils # (Manual) PT INR Heparin Anti-Xa Level POC ABG pO2 ABG pH ABG Hemoglobin ABG Oxyhemoglobin ABG pO2 ABG HCO3 ABG O2 Saturation ABG Base Excess ABG Sodium ABG Potassium ABG Chloride ABG Glucose Oxyhemoglobin Sodium Potassium Chloride Carbon Dioxide BUN Creatinine Glucose POC Glucose 131 H 139 H Lactic Acid Calcium AST Phosphorus Total Protein Albumin C-Reactive Protein Arterial Blood Glucose Arterial Blood Ionized Calcium Urine WBC (Auto) Crossmatch Chest x-ray: pending Allied health notes reviewed: nursing
[2020-02-25] MEDS ORDERED: SODIUM CHLORIDE 0.9% 1000 ML 1,000 ML IV ONE (13:13)
[2020-02-25 21:03] LABS: ABG Base Excess 2.7 mmol/L (-2.0-3.0); ABG HCO3 25.7 mmol/L (20.0-26.0); ABG Methemoglobin 0.6 % (0.0-1.5); ABG Oxygen Saturation 98.9 % (95.0-99.0); ABG PH 7.498 pH Units (7.350-7.450); ABG PO2 146.1 mm Hg (80.0-90.0)
[2020-02-25] MEDS: traZODone 50 MG TAB PO SCH (21:33)
[2020-02-25] MEDS: DONEPEZIL 10 MG TAB PO SCH (21:33)
[2020-02-25] MEDS: MIRTAZAPINE 15 MG TAB PO SCH (21:34)
[2020-02-26] MEDS: INSULIN REGULAR, HUMAN 100 UNIT/ML 3ML VIAL SUB-Q SCH ×4 (02:57→21:23)
[2020-02-26] MEDS: PIPERACIL/TAZOBACTA 4.5/NS 100 4.5 GM/100 ML VIAL IV SCH ×3 (05:20→22:30)
[2020-02-26] MEDS: SODIUM CHLORIDE 0.9% 250ML 250 ML IV PRN (05:58)
--- NOTE | 2020-02-26 09:22 | Progress Note ---
Assessment and Plan Assessment and plan: 69-year-old -[place] female with known history of dementia, and according to the does not talk much due to this. Diabetes mellitus and pulmonary embolism was admitted through the emergency room from the long-term on 01/07 for decreased responsiveness, lethargy and hypotension. Patient had sepsis UTI and sacral decubitus ulcer evaluated by ID, medications optimized, patient went into acute hypoxic respiratory failure requiring intubation admitted to ICU, extubated, patient sustained cardiac arrest x2, Requiring reintubation, became vent dependent, surgery evaluated underwent trach and PEG, currently patient is awaiting LTAC/SNF placement Patient remains vent dependent, with severe metabolic and hypoxic encephalopathy. Patient has unstageable sacral decubitus ulcer status post debridement Sepsis on long-term antibiotics total 6 weeks per ID, stop date 02/27/2020 --Acute hypoxic respiratory failure; vent dependent s/p tracheostomy,02/13/2020 per surgery, trach care, ventilatory support status post extubation 02/02/2020 but had to be reintubated on 02/04 We will continue current care, pulmonary critical following --Dysphagia s/p PEG placement; continue PEG feeds per protocol --Shock/ septic shock; s/p Levophed,monitor off Levophed --s/p PEA arrest night of 01/28/2020 and 02/05/2020 s/p CPR per ACLS protocol --Anoxic/hypoxic brain injury[status post PEA cardiac arrest]; supportive care Poor prognosis, family aware --Unstageable sacral decubitus ulcer, infected/POA s/p wound debridement on 01/15. Continue wound vac , Proteus bacteremia On zosyn 4.5 g IV q8h total 6 weeks per ID stop date 02/27/2020 --Sepsis /Proteus bacteremia: Due to sacral decubitus Long-term Zosyn per ID stop date 02/27/2020[total 6 weeks] --Hypokalemia /Hypernatremia; resolved --Anemia ; received 1 unit PRBC, now Hb 8.8 -- Diabetes mellitus; Blood sugars well controlled, A1c 5.3 Accu-Chek,SSC, long-acting insulin as needed Tube feeding diet -- Hydropneumothorax, not POA Patient developed hydropneumothorax on 01/15. Surgery evaluated s/p chest tube placed on 01/15. Improved, s/p chest tube removed 01/22, extubated 02/02/2020 Reintubated 02/05/2020 , tracheostomy 02/13/2020 -- large Left pleural effusion 01/25 01/27; s/p bronchoscopy and Therapeutic suctioning of the lungs done by medical sociologist -- UTI (urinary tract infection)Completed antibiotics --h/o Bilateral pulmonary embolism 7 months ago Repeat CTA chest and LE doppler showed no acute PE or DVT, eliquis stopped -- Dementia: Continue donepezil --Severe protein-calorie malnutrition PEG placed 01/13. PEG feeds per protocol --DVT prophylaxis; SCDs --Disposition; possible LTAC placement Closely monitor the patient and adjust management as needed Plan of care reviewed with the patient and her nurse The high probability of a clinically significant, sudden or life threatening deterioration of the [Respiratory, JAVA ENGINEER, CVs] system(s) required my full and direct attention, intervention and personal management. The aggregate critical care time was [31] minutes. This time is in addition to time spent performing reported procedures but includes the following: [x] Data Review and interpretation [x] Patient assessment and monitoring of vital signs [x] Documentation [x] Medication orders and management . Patient currently with PSV/CPAP FiO2 50%, PEEP of 6 and pressure support of 10. Continue PSV trials as tolerated and wean per pulmonary. Recall ID consultation. 02/08/2020. Patient with Proteus bacteremia likely from sacral decubitus. Continue Zosyn 4.5 g IV every 8 hours until stop date of 02/26. Patient still on mechanical ventilation AC mode rate 12, tidal volume 350, FiO2 30% and PEEP of 6. Poor prognosis. Consider hospice. Continue scopolamine for secretion control. Continue pressors to maintain MAP > 65; currently off. 02/09/2020. Continue Zosyn 4.5 g IV every 8 hours for Proteus bacteremia with end date of 02/27/2020. Continue wound care/wound VAC per surgery. Patient still on mechanical ventilation AC mode rate 12, tidal volume 350, FiO2 30% and PEEP of 6. Poor prognosis. Consider hospice. Continue scopolamine for secretion control. Currently off pressors. 02/09; evaluated by surgery, planning tracheostomy pending COVID test 02/10; possible tracheostomy today pending COVID test, surgery following 02/11; patient n.p.o. from midnight, possible tracheostomy tomorrow Received 1 unit of PRBC, Hb improved to 8.6 02/12; scheduled for tracheostomy today 02/13; trach care, bilateral upper extremity L edema and swelling, check venous Doppler 02/14; right upper extremity swelling edema, DC the line, elevate the limb 02/15;RUE venous Doppler no DVT, superficial thrombophlebitis, elevate the limb and supportive care 02/16; pending LTAC/SNF placement 02/17; pending LTAC/SNF placement 02/18; trach and PEG, on ventilatory support, awaiting LTAC placement. Sacral decubitus long-term a antibiotics Zosyn stop date 02/27/202002/19: Overnight patient experienced some hypotensive episodes. Was re suscitated with IV fluids. Doppler done over the course of the week showed a superficial right cephalic vein thrombosis. Will obtain intermittent labs this morning my understanding is that we are awaiting placement to LTAC. Patient is status post trach and PEG. 02/20; no significant change overnight, pending LTAC placement. 02/21; patient is still on Zosyn, blood pressure is within normal limit. Pending LTAC placement 02/22; patient's BP is okay. Patient is tachycardic. 02/23; no change. Patient is still on mechanical ventilation 02/24; patient is critically sick, no significant change. Patient is on mechanical ventilation. 02/25; no significant change. Patient is on mechanical ventilation. Disposition; Awaiting LTAC/SNF placement. Authorization pending. History Interval history: Patient was seen and evaluated this morning Patient has trach and on mechanical ventilator and CPAP intermittently Hospitalist Physical - Physical exam Narrative exam: Patient has a trach and on mechanical ventilator The patient appeared well nourished and normally developed. Vital signs as documented. Head exam is unremarkable. No scleral icterus . Neck is without jugular venous distension, thyromegaly, or carotid bruits. Lungs are clear to auscultation. Cardiac exam reveals regular rate and Rhythm. Abdominal exam reveals normal bowel sounds, nontender, no organomegaly. Extremities are nonedematous and both femoral and pedal pulses are normal. JAVA ENGINEER: Patient is aphasic and noncommunicative. Does not follow commands. Extremities are contracted. - Constitutional Vitals: Temp Pulse Resp BP Pulse Ox 97.6 F 114 H 25 H 97/60 100 02/26/20 08:00 02/26/20 09:11 02/26/20 09:11 02/26/20 09:11 02/26/20 09:11 General appearance: Present: no acute distress, well-nourished, other (Tracheostomy on vent) Results - Labs CBC & Chem 7: 02/24/20 07:02 02/24/20 04:20 Labs: Laboratory Last Values WBC 6.6 K/mm3 (4.5-11.0) 02/24/20 07:02 RBC 2.85 M/mm3 (3.65-5.03) L 02/24/20 07:02 Hgb 9.1 gm/dl (10.1-14.3) L D 02/24/20 07:02 Hct 27.3 % (30.3-42.9) L D 02/24/20 07:02 MCV 96 fl (79-97) 02/24/20 07:02 MCH 32 pg (28-32) 02/24/20 07:02 MCHC 33 % (30-34) 02/24/20 07:02 RDW 18.8 % (13.2-15.2) H 02/24/20 07:02 Plt Count 538 K/mm3 (140-440) H D 02/24/20 07:02 Lymph % (Auto) 13.2 % (13.4-35.0) L 02/14/20 04:26 Walsh % (Auto) 3.6 % (0.0-7.3) 02/14/20 04:26 Eos % (Auto) 1.0 % (0.0-4.3) 02/14/20 04:26 Baso % (Auto) 0.8 % (0.0-1.8) 02/14/20 04:26 Lymph # (Auto) 1.4 K/mm3 (1.2-5.4) 02/14/20 04:26 Walsh # (Auto) 0.4 K/mm3 (0.0-0.8) 02/14/20 04:26 Eos # (Auto) 0.1 K/mm3 (0.0-0.4) 02/14/20 04:26 Baso # (Auto) 0.1 K/mm3 (0.0-0.1) 02/14/20 04:26 Add Manual Diff Complete 02/20/20 08:24 Total Counted 100 02/20/20 08:24 Seg Neutrophils % 81.4 % (40.0-70.0) H 02/14/20 04:26 Seg Neuts % (Manual) 79.0 % (40.0-70.0) H 02/20/20 08:24 Band Neutrophils % 0 % 02/20/20 08:24 Lymphocytes % (Manual) 12.0 % (13.4-35.0) L 02/20/20 08:24 Reactive Lymphs % (Man) 0 % 02/20/20 08:24 Monocytes % (Manual) 4.0 % (0.0-7.3) 02/20/20 08:24 Eosinophils % (Manual) 3.0 % (0.0-4.3) 02/20/20 08:24 Basophils % (Manual) 2.0 % (0.0-1.8) H 02/20/20 08:24 Metamyelocytes % 0 % 02/20/20 08:24 Myelocytes % 0 % 02/20/20 08:24 Promyelocytes % 0 % 02/20/20 08:24 Blast Cells % 0 % 02/20/20 08:24 Nucleated RBC % Not Reportable 02/20/20 08:24 Seg Neutrophils # 8.4 K/mm3 (1.8-7.7) H 02/14/20 04:26 Seg Neutrophils # Man 6.5 K/mm3 (1.8-7.7) 02/20/20 08:24 Band Neutrophils # 0.0 K/mm3 02/20/20 08:24 Lymphocytes # (Manual) 1.0 K/mm3 (1.2-5.4) L 02/20/20 08:24 Abs React Lymphs (Man) 0.0 K/mm3 02/20/20 08:24 Monocytes # (Manual) 0.3 K/mm3 (0.0-0.8) 02/20/20 08:24 Eosinophils # (Manual) 0.2 K/mm3 (0.0-0.4) 02/20/20 08:24 Basophils # (Manual) 0.2 K/mm3 (0.0-0.1) H 02/20/20 08:24 Metamyelocytes # 0.0 K/mm3 02/20/20 08:24 Myelocytes # 0.0 K/mm3 02/20/20 08:24 Promyelocytes # 0.0 K/mm3 02/20/20 08:24 Blast Cells # 0.0 K/mm3 02/20/20 08:24 WBC Morphology Not Reportable 02/20/20 08:24 Hypersegmented Neuts Not Reportable 02/20/20 08:24 Hyposegmented Neuts Not Reportable 02/20/20 08:24 Hypogranular Neuts Not Reportable 02/20/20 08:24 Smudge Cells Not Reportable 02/20/20 08:24 Toxic Granulation Not Reportable 02/20/20 08:24 Toxic Vacuolation Not Reportable 02/20/20 08:24 Dohle Bodies Not Reportable 02/20/20 08:24 Pelger-Huet Anomaly Not Reportable 02/20/20 08:24 Lata Rods Not Reportable 02/20/20 08:24 Platelet Estimate Consistent w auto 02/20/20 08:24 Clumped Platelets Rare 02/20/20 08:24 Plt Clumps, EDTA Not Reportable 02/20/20 08:24 Large Platelets Few 02/20/20 08:24 Giant Platelets Not Reportable 02/20/20 08:24 Platelet Satelliting Not Reportable 02/20/20 08:24 Plt Morphology Comment Not Reportable 02/20/20 08:24 RBC Morphology Not Reportable 02/20/20 08:24 Dimorphic RBCs Not Reportable 02/20/20 08:24 Polychromasia Not Reportable 02/20/20 08:24 Hypochromasia Not Reportable 02/20/20 08:24 Poikilocytosis Not Reportable 02/20/20 08:24 Anisocytosis 1+ 02/20/20 08:24 Microcytosis Not Reportable 02/20/20 08:24 Macrocytosis 1+ 02/20/20 08:24 Spherocytes Not Reportable 02/20/20 08:24 Pappenheimer Bodies Not Reportable 02/20/20 08:24 Sickle Cells Not Reportable 02/20/20 08:24 Target Cells Not Reportable 02/20/20 08:24 Tear Drop Cells Not Reportable 02/20/20 08:24 Ovalocytes Not Reportable 02/20/20 08:24 Helmet Cells Not Reportable 02/20/20 08:24 Lombardi-Thomas Bodies Not Reportable 02/20/20 08:24 Amanda Rings Not Reportable 02/20/20 08:24 Holland Cells Not Reportable 02/20/20 08:24 Bite Cells Not Reportable 02/20/20 08:24 Crenated Cell Not Reportable 02/20/20 08:24 Elliptocytes Not Reportable 02/20/20 08:24 Acanthocytes (Spur) Not Reportable 02/20/20 08:24 Rouleaux Not Reportable 02/20/20 08:24 Hemoglobin C Crystals Not Reportable 02/20/20 08:24 Schistocytes Not Reportable 02/20/20 08:24 Malaria parasites Not Reportable 02/20/20 08:24 Gideon Bodies Not Reportable 02/20/20 08:24 Hem Pathologist Commnt No 02/20/20 08:24 APTT 33.9 Sec. (24.2-36.6) 01/26/20 16:30 PT 14.4 Sec. (12.2-14.9) 02/02/20 05:25 INR 1.11 (0.87-1.13) 02/02/20 05:25 Heparin Anti-Xa Level 0.74 U.I./ml (0.3-0.7) H 01/28/20 08:50 ABG pH 7.498 pH Units (7.350-7.450) H 02/25/20 20:30 POC ABG pCO2 37.3 mmHg (32.0-48.0) 02/24/20 13:39 ABG pCO2 34.0 mm Hg 02/25/20 20:30 POC ABG pO2 108.0 mmHg (83-108) 02/24/20 13:39 ABG pO2 146.1 mm Hg (80.0-90.0) H 02/25/20 20:30 POC ABG HCO3 28.2 02/24/20 13:39 ABG HCO3 25.7 mmol/L (20.0-26.0) 02/25/20 20:30 ABG O2 Saturation 98.9 % (95.0-99.0) 02/25/20 20:30 ABG O2 Content 14.8 (0.0-44) 02/25/20 20:30 POC ABG Base Excess 4.8 02/24/20 13:39 ABG Base Excess 2.7 mmol/L (-2.0-3.0) 02/25/20 20:30 ABG Hemoglobin 10.7 gm/dl (12.0-16.0) L 02/25/20 20:30 ABG Oxyhemoglobin 96.7 (94-98) 02/09/20 03:04 ABG Carboxyhemoglobin 1.4 % (0.0-5.0) 02/25/20 20:30 ABG Methemoglobin 0.6 % (0.0-1.5) 02/25/20 20:30 ABG Sodium 135.4 mmol/L (136.0-145.0) L 02/24/20 13:39 ABG Potassium 3.8 mmol/L (3.40-4.50) 02/24/20 13:39 ABG Chloride 106.0 mmol/L (98-107) 02/24/20 13:39 ABG Glucose 133 mg/dL (65-95) H 02/24/20 13:39 Oxyhemoglobin 97.0 % (95.0-99.0) 02/25/20 20:30 Carboxyhemoglobin TNR 02/08/20 03:55 FiO2 35 % 02/25/20 20:30 Sodium 142 mmol/L (137-145) D 02/24/20 04:20 Potassium 4.0 mmol/L (3.6-5.0) 02/24/20 04:20 Chloride 111.1 mmol/L (98-107) H 02/24/20 04:20 Carbon Dioxide 25 mmol/L (22-30) 02/24/20 04:20 Anion Gap 10 mmol/L 02/24/20 04:20 BUN 18 mg/dL (7-17) H 02/24/20 04:20 Creatinine 0.3 mg/dL (0.6-1.2) L 02/24/20 04:20 Estimated GFR > 60 ml/min 02/24/20 04:20 BUN/Creatinine Ratio 60 % 02/24/20 04:20 Glucose 115 mg/dL (65-100) H 02/24/20 04:20 POC Glucose 129 mg/dL (70-105) H 02/26/20 05:30 Hemoglobin A1c 5.3 % (4-6) 01/11/20 00:45 Lactic Acid 1.30 mmol/L (0.7-2.0) 01/26/20 23:27 Calcium 6.6 mg/dL (8.4-10.2) L D 02/24/20 04:20 Phosphorus 2.70 mg/dL (2.5-4.5) 02/24/20 04:20 Magnesium 2.00 mg/dL (1.7-2.3) 02/16/20 05:09 Total Bilirubin 0.20 mg/dL (0.1-1.2) 02/13/20 04:45 AST 29 units/L (5-40) 02/13/20 04:45 ALT 38 units/L (7-56) 02/13/20 04:45 Alkaline Phosphatase 109 units/L (35-129) 02/13/20 04:45 C-Reactive Protein 14.80 mg/dL (0.00-1.30) H 01/29/20 Unknown Total Protein 4.2 g/dL (6.3-8.2) L 02/13/20 04:45 Albumin 2.0 g/dL (3.9-5) L 02/13/20 04:45 Albumin/Globulin Ratio 0.9 % 02/13/20 04:45 TSH 2.440 mlU/mL (0.270-4.200) 01/10/20 10:10 Procalcitonin 1.86 ng/mL (<0.15) 01/29/20 Unknown Arterial Blood Glucose 133 mg/dL (65-95) H 02/24/20 13:39 Arterial Blood Ionized Calcium 4.7 mg/dL (4.6-5.3) 02/24/20 13:39 Urine Color Cordelia (Yellow) 01/08/20 Unknown Urine Turbidity Cloudy (Clear) 01/08/20 Unknown Urine pH 5.0 (5.0-7.0) 01/08/20 Unknown Ur Specific Wheeler 1.018 (1.003-1.030) 01/08/20 Unknown Urine Protein 30 mg/dl mg/dL (Negative) 01/08/20 Unknown Urine Glucose (UA) Neg mg/dL (Negative) 01/08/20 Unknown Urine Ketones Neg mg/dL (Negative) 01/08/20 Unknown Urine Blood Mod (Negative) 01/08/20 Unknown Urine Nitrite Neg (Negative) 01/08/20 Unknown Urine Bilirubin Neg (Negative) 01/08/20 Unknown Urine Urobilinogen < 2.0 mg/dL (<2.0) 01/08/20 Unknown Ur Leukocyte Esterase Sm (Negative) 01/08/20 Unknown Urine WBC (Auto) 11.0 /HPF (0.0-6.0) H 01/08/20 Unknown Urine RBC (Auto) 7.0 /HPF (0.0-6.0) 01/08/20 Unknown U Epithel Cells (Auto) < 1.0 /HPF (0-13.0) 01/08/20 Unknown Urine Bacteria (Auto) 1+ /HPF (Negative) 01/08/20 Unknown Urine Mucus 2+ /HPF 01/08/20 Unknown Urine Yeast (Budding) 1+ /HPF 01/08/20 Unknown Vancomycin Trough 7.9 ug/mL (5.0-20.0) 01/17/20 16:04 Coronavirus (PCR) Negative (Negative) 02/10/20 10:06 Blood Type A POSITIVE 02/11/20 08:22 Antibody Screen Negative 02/11/20 08:22 Crossmatch See Detail 02/11/20 08:22 Mejía/IV: Voiding Method Indwelling Catheter IV Catheter Type [Left Hand] Peripheral IV IV Catheter Type [Left Wrist] INT / Saline Lock IV Catheter Type [Left Upper PICC Line arm] IV Catheter Type [Right Upper Mid-line arm] IV Catheter Type [Right Peripheral IV Forearm] Active Medications - Current Medications Current Medications: Generic Name Dose Route Start Last Admin Trade Name Freq PRN Reason Stop Dose Admin Acetaminophen 650 mg 01/08/20 23:14 02/23/20 21:29 Tylenol PO 650 mg Q4H PRN Administration Pain MILD(1-3)/Fever >100.5/GARCIA Lipase/Protease/Amylase 1 each 01/17/20 08:[address] 10,500 Unit FEEDTUBE PRN PRN For Clogged Feeding Tube Atorvastatin Calcium 10 mg 01/09/20 22:00 02/25/20 21:33 Atorvastatin PO 10 mg QHS BRO Administration Dextrose 0 ml 01/08/20 23:14 02/10/20 17:18 D50w (25gm) Syringe IV 10 ml Q30MIN PRN Administration Hypoglycemia Protocol Donepezil HCl 10 mg 01/09/20 22:00 02/25/20 21:33 Aricept PO 10 mg QHS BRO Administration Famotidine 20 mg 01/27/20 10:00 02/25/20 21:33 Pepcid PO 20 mg BID BRO Administration Ferrous Sulfate 308 mg 02/09/20 12:00 02/25/20 09:24 Ferrous Sulfate FEEDTUBE 308 mg DAILY BRO Administration Fluticasone Propionate 100 mcg 01/25/20 20:00 01/26/20 06:09 Flonase NS 100 mcg QDAY PRN Administration Nasal Congestion Glycopyrrolate 2 mg 02/18/20 22:00 02/25/20 21:33 Glycopyrrolate PO 2 mg BID BRO Administration Heparin Sodium (Porcine) 5,000 unit 01/28/20 10:00 02/25/20 21:33 Heparin SUB-Q 5,000 unit Q12HR BRO Administration Hydrophilic Ointment 1 applic 01/28/20 10:57 Vaseline Lip Therapy TP Q2HR PRN Dry Lips Piperacillin Sod/Tazobactam Sod 4.5 gm in 100 mls @ 200 mls/hr 01/19/20 14:00 02/26/20 05:50 Zosyn/Ns 4.5gm/100ml IV 02/27/20 22:29 Infused Q8HR [facility] Infusion Protocol Norepinephrine 4 mg in 250 mls @ 7.5 mls/hr 02/19/20 22:00 Levophed Drip 4 Mg/Ns 250 Ml IV TITR BRO Protocol 2 MCG/MIN Sodium Chloride 250 mls @ 10 mls/hr 02/23/20 12:07 02/26/20 05:58 Nacl 0.9% 250ml IV 10 mls/hr PRN PRN Administration FOR SECONDARY LINE/ANTIBIOTICS Insulin Human Regular 0 unit 01/27/20 12:00 02/26/20 06:44 Humulin R SUB-Q Not Given Q6HR [facility] Protocol Loperamide HCl 2 mg 02/14/20 12:00 02/14/20 16:48 Loperamide PO 2 mg Q2H PRN Administration Diarrhea Magnesium Hydroxide 30 ml 01/08/20 23:14 Milk Of Magnesia PO Q4H PRN Constipation Mirtazapine 15 mg 01/09/20 22:00 02/25/20 21:34 Remeron PO 15 mg QHS BRO Administration Multi-Ingred Cream/Lotion/Oil/Oint 1 applic 01/28/20 10:57 Artificial Tears Ophth Oint OU Q4HR PRN Dry Eye(s) Multivitamins 5 ml 02/09/20 12:00 02/25/20 09:25 Centrum Liq PO 5 ml QDAY BRO Administration Ondansetron HCl 4 mg 01/08/20 23:14 Zofran IV Q8H PRN Nausea And Vomiting Oxycodone/Acetaminophen 1 tab 02/17/20 13:28 02/24/20 05:34 Percocet 5/325 PO 1 tab Q4H PRN Administration Pain, Moderate (4-6) Scopolamine 1 each 02/05/20 10:00 02/23/20 10:20 Transderm-Scop TD 1 each Q3D BRO Administration Simple Syrup 15 ml 01/17/20 08:37 Simple Syrup FEEDTUBE PRN PRN Hypoglycemia Simple Syrup 30 ml 01/17/20 08:37 02/11/20 23:43 Simple Syrup FEEDTUBE 30 ml PRN PRN Administration Hypoglycemia Sodium Bicarbonate 325 mg 01/17/20 08:37 Sodium Bicarbonate FEEDTUBE PRN PRN For Clogged Feeding Tube Sodium Chloride 10 ml 01/09/20 10:00 02/25/20 21:34 Sodium Chloride Flush Syringe 10 Ml IV 10 ml BID BRO Administration Sodium Chloride 10 ml 01/08/20 23:14 Sodium Chloride Flush Syringe 10 Ml IV PRN PRN LINE FLUSH Trazodone HCl 25 mg 01/09/20 22:00 02/25/20 21:33 Desyrel PO 25 mg QHS BRO Administration Nutrition/Malnutrition Assess - Dietary Evaluation Nutrition/Malnutrition Findings: Nutrition Notes Start: 01/09/20 12:13 Freq: Status: Active Protocol: Document 02/24/20 11:03 AL (Rec: 02/24/20 11:13 AL [email or web address]) Co-Sign 02/24/20 11:03 Nutrition Notes Initial or Follow up Reassessment Current Diagnosis Decubitus(Pressure Ulcer), Diabetes,Sepsis Other Pertinent Diagnosis UTI, dementia, PE, Sacral wound Current Diet Vital AF 1.2 at 50ml/hr Labs/Tests Reviewed Pertinent Medications Reviewed Height 5 ft 2 in Weight 63.1 kg [place] Body Weight (kg) 50.00 BMI 25.4 Weight Status Overweight Subjective/Other Information RD FU for stalbe TF. TF still running at 50 ml/hr (goal rate ). No issues with TF noted. 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 Yes Is Patient Ambulatory and/or Out of Bed No REE-([facility]-confined to bed) 1331.064 Kcal/Kg value to use for calculation 22 Approximate Energy Requirements Using 1388 kcal/Kg Calculation Used for Recommendations Kcal/kg Additional Notes Pro: 81-98 g (1.25-1.5 g/kg) Fluid: 1ml/kcal Nutrition Intervention Change Diet Order: Continue Nutrition Support: Vital AF 1.2 at 50ml/hr Flush 250ml q4h per MD Kcal 1,440 Protein (gm) 90 Fluid (mL) 973 Goal #1 TF tolerance Goal #2 Meet at least 80% of kcal and protein needs via TF Goal #3 Wound healing Anticipated Discharge Needs: Continue TF Follow-Up By: 03/02/20 Additional Comments F/U for stable TF
[2020-02-26] MEDS: HEPARIN 5,000 UNIT/1 ML VIAL SUB-Q SCH ×2 (09:50→21:22)
[2020-02-26] MEDS: MULTIVITAMINS 5 ML ORAL LIQUID PO SCH (09:50)
[2020-02-26] MEDS: FAMOTIDINE 20 MG TAB PO SCH ×2 (09:51→21:22)
[2020-02-26] MEDS: FERROUS SULFATE 308 MG (62mg Elemental Iron) / 7 ML ELIXIR FEEDTUBE SCH (09:51)
[2020-02-26] MEDS: SCOPOLAMINE TRANSDERMAL PATCH 72 HR TD SCH (09:52)
[2020-02-26] MEDS: GLYCOPYRROLATE 2 MG TAB PO SCH ×2 (11:32→21:23)
--- NOTE | 2020-02-26 13:51 | Progress Note ---
Assessment and Plan Severe sepsis with shock. Left lung atelectasis. Left pleural effusion. Acute hypoxemic respiratory failure. Acute possibly on chronic encephalopathy. History of diabetes. Urinary tract infection. History of pulmonary embolism, diagnosed several months ago. Sacral decubitus ulcer. Dementia. Anemia that is normocytic. - shoot for RTC t-piece as tolerated - ABG at 9 pm to assess ventilation (if still on t-piece) - continue care as below otherwise; - prn vasopressors for target MAP > 65 mmHg - continue daily SAT's and SBT's as tolerated - continue scopolamine for secretions - continue to rest on AC qhs for now - complete AB's per ID rec's (Zosyn) - continue to wean supplemental oxygen for target O2 sat's > 92% acutely - VAP bundle addressed - continue lung protective strategies - continue bronchodilators with routine trach care and pulmonary hygiene per RT - wean per pulmonary driven protocols otherwise - continue accuchecks with glycemic control per SSI (While critically ill target blood glucose of 140-180 mg/dL; avoid hypoglycemia) - sedation prn for target RASS 0 to -1 - avoid nephrotoxins, renally dose all medications - continue to avoid benzodiazepine's, reduce the possibility of delirium - prn analgesia per CPOT score - Maintenance of sleep-wake cycle, avoid delirium - continue enteral nutritional support at goal rate as tolerated - G.I. & VTE prophylaxis with famotidine and heparin - PT/OT/ROM exercises - continue mobility protocols for pressure ulcer prophylaxis - Monitor hemodynamics closely - continue other care per attending / other consultants - discharge planning ongoing concurrently .... Re-evaluate in am & prn CONDITION: CRITICAL PROGNOSIS: GUARDED CODE STATUS: FULL CODE The high probability of a clinically significant, sudden or life-threatening deterioration of the [respiratory, cardiovascular & neurologic] system(s) required my full and direct attention, intervention and personal management. The aggregate critical care time was [33] minutes without overlap. Time includes spent on; [x] Data Review and interpretation [x] Patient assessment and monitoring of vital signs [x] Documentation [x] Medication orders and management Subjective Date of service: 02/26/20 Principal diagnosis: Septic Shock; S/P Cardiac Arrest; Ac. hypoxemic resp failure; UTI Interval history: Patient is seen today for: Severe sepsis with shock; S/P Cardiac Arrest; L. lung atelectasis / L. pleural effusion; Acute hypoxemic respiratory failure; Acute possibly on chronic encephalopathy; DM II; UTI; VTE Seen and examined at bedside; 24hour events reviewed; nursing and respiratory care staff consulted; no adverse overnight events reported to me; resting peacefully in bed; AMS is persistent; tired out on t-piece yesterday and back on MVS; no emesis or overt aspiration; BP's better Objective Vital Signs - 12hr 02/26/20 02/26/20 02/26/20 02:01 02:11 02:21 Temperature Pulse Rate 98 H 86 93 H Pulse Rate [ From Monitor] Respiratory 19 18 19 Rate Blood Pressure 73/42 98/44 98/44 O2 Sat by Pulse 100 100 100 Oximetry O2 Sat by Pulse Oximetry [ Assessment] 02/26/20 02/26/20 02/26/20 02:31 02:41 02:51 Temperature Pulse Rate 99 H 95 H 94 H Pulse Rate [ From Monitor] Respiratory 20 20 20 Rate Blood Pressure 90/42 90/42 90/42 O2 Sat by Pulse 100 100 100 Oximetry O2 Sat by Pulse Oximetry [ Assessment] 02/26/20 02/26/20 02/26/20 03:00 03:11 03:21 Temperature Pulse Rate 92 H 99 H 84 Pulse Rate [ From Monitor] Respiratory 16 17 17 Rate Blood Pressure 81/41 81/41 81/41 O2 Sat by Pulse 100 100 100 Oximetry O2 Sat by Pulse Oximetry [ Assessment] 02/26/20 02/26/20 02/26/20 03:30 03:41 03:50 Temperature Pulse Rate 108 H 103 H 108 H Pulse Rate [ From Monitor] Respiratory 22 20 22 Rate Blood Pressure 97/50 81/41 97/50 O2 Sat by Pulse 100 100 100 Oximetry O2 Sat by Pulse Oximetry [ Assessment] 02/26/20 02/26/20 02/26/20 04:00 04:01 04:11 Temperature 98.4 F Pulse Rate 106 H 112 H 107 H Pulse Rate [ 106 H From Monitor] Respiratory 21 24 20 Rate Blood Pressure 109/58 109/58 O2 Sat by Pulse 100 100 100 Oximetry O2 Sat by Pulse Oximetry [ Assessment] 02/26/20 02/26/20 02/26/20 04:19 04:21 04:22 Temperature Pulse Rate 107 H 108 H Pulse Rate [ From Monitor] Respiratory 21 Rate Blood Pressure 109/58 109/58 O2 Sat by Pulse 100 100 Oximetry O2 Sat by Pulse 100 Oximetry [ Assessment] 02/26/20 02/26/20 02/26/20 04:30 04:41 04:51 Temperature Pulse Rate 107 H 106 H 106 H Pulse Rate [ From Monitor] Respiratory 18 22 19 Rate Blood Pressure 103/55 103/55 103/55 O2 Sat by Pulse 100 100 100 Oximetry O2 Sat by Pulse Oximetry [ Assessment] 02/26/20 02/26/20 02/26/20 05:00 05:11 05:21 Temperature Pulse Rate 110 H 107 H 114 H Pulse Rate [ From Monitor] Respiratory 25 H 16 24 Rate Blood Pressure 121/58 121/58 121/58 O2 Sat by Pulse 100 100 100 Oximetry O2 Sat by Pulse Oximetry [ Assessment] 02/26/20 02/26/20 02/26/20 05:30 05:41 05:51 Temperature Pulse Rate 118 H 122 H 125 H Pulse Rate [ From Monitor] Respiratory 23 25 H 26 H Rate Blood Pressure 126/61 126/61 126/61 O2 Sat by Pulse 100 100 100 Oximetry O2 Sat by Pulse Oximetry [ Assessment] 02/26/20 02/26/20 02/26/20 06:00 06:11 06:21 Temperature Pulse Rate 124 H 120 H 122 H Pulse Rate [ From Monitor] Respiratory 26 H 25 H 21 Rate Blood Pressure 137/76 137/76 137/76 O2 Sat by Pulse 100 100 100 Oximetry O2 Sat by Pulse Oximetry [ Assessment] 02/26/20 02/26/20 02/26/20 06:30 06:41 06:51 Temperature Pulse Rate 120 H 118 H 110 H Pulse Rate [ From Monitor] Respiratory 22 24 21 Rate Blood Pressure 121/73 121/73 121/73 O2 Sat by Pulse 100 100 100 Oximetry O2 Sat by Pulse Oximetry [ Assessment] 02/26/20 02/26/20 02/26/20 07:00 07:11 07:21 Temperature Pulse Rate 106 H 106 H 114 H Pulse Rate [ From Monitor] Respiratory 16 18 22 Rate Blood Pressure 114/62 114/62 114/62 O2 Sat by Pulse 100 100 100 Oximetry O2 Sat by Pulse Oximetry [ Assessment] 02/26/20 02/26/20 02/26/20 07:30 07:41 07:51 Temperature Pulse Rate 107 H 102 H 108 H Pulse Rate [ From Monitor] Respiratory 20 16 18 Rate Blood Pressure 114/69 114/69 114/69 O2 Sat by Pulse 100 100 100 Oximetry O2 Sat by Pulse Oximetry [ Assessment] 02/26/20 02/26/20 02/26/20 08:00 08:11 08:21 Temperature 97.6 F Pulse Rate 80 89 104 H Pulse Rate [ 94 H From Monitor] Respiratory 18 16 21 Rate Blood Pressure 108/55 108/55 108/55 O2 Sat by Pulse 100 100 100 Oximetry O2 Sat by Pulse Oximetry [ Assessment] 02/26/20 02/26/20 02/26/20 08:29 08:30 08:41 Temperature Pulse Rate 111 H 113 H Pulse Rate [ From Monitor] Respiratory 19 23 Rate Blood Pressure 124/67 124/67 O2 Sat by Pulse 100 100 100 Oximetry O2 Sat by Pulse Oximetry [ Assessment] 02/26/20 02/26/20 02/26/20 08:51 09:00 09:11 Temperature Pulse Rate 101 H 107 H 114 H Pulse Rate [ From Monitor] Respiratory 20 21 25 H Rate Blood Pressure 124/67 97/60 97/60 O2 Sat by Pulse 100 100 100 Oximetry O2 Sat by Pulse Oximetry [ Assessment] 02/26/20 02/26/20 02/26/20 09:21 09:30 09:41 Temperature Pulse Rate 115 H 103 H 110 H Pulse Rate [ From Monitor] Respiratory 27 H 21 24 Rate Blood Pressure 97/60 108/57 108/57 O2 Sat by Pulse 100 100 100 Oximetry O2 Sat by Pulse Oximetry [ Assessment] 02/26/20 02/26/20 02/26/20 09:51 10:01 10:11 Temperature Pulse Rate 108 H 115 H 116 H Pulse Rate [ From Monitor] Respiratory 21 29 H 25 H Rate Blood Pressure 108/57 132/76 132/76 O2 Sat by Pulse 100 100 100 Oximetry O2 Sat by Pulse Oximetry [ Assessment] 02/26/20 02/26/20 02/26/20 10:21 10:30 10:41 Temperature Pulse Rate 113 H 102 H 104 H Pulse Rate [ From Monitor] Respiratory 25 H 21 21 Rate Blood Pressure 132/76 101/56 101/56 O2 Sat by Pulse 100 100 100 Oximetry O2 Sat by Pulse Oximetry [ Assessment] 02/26/20 02/26/20 02/26/20 10:51 11:00 11:11 Temperature Pulse Rate 114 H 120 H 119 H Pulse Rate [ From Monitor] Respiratory 23 29 H 24 Rate Blood Pressure 101/56 122/72 122/72 O2 Sat by Pulse 100 100 100 Oximetry O2 Sat by Pulse Oximetry [ Assessment] 02/26/20 02/26/20 02/26/20 11:21 11:30 11:41 Temperature Pulse Rate 117 H 119 H 108 H Pulse Rate [ From Monitor] Respiratory 24 28 H 21 Rate Blood Pressure 122/72 120/72 120/72 O2 Sat by Pulse 100 100 100 Oximetry O2 Sat by Pulse Oximetry [ Assessment] 02/26/20 02/26/20 02/26/20 11:51 12:00 12:11 Temperature 98.7 F Pulse Rate 121 H 120 H 121 H Pulse Rate [ 122 H From Monitor] Respiratory 25 H 28 H 27 H Rate Blood Pressure 120/72 123/73 123/73 O2 Sat by Pulse 100 100 100 Oximetry O2 Sat by Pulse Oximetry [ Assessment] 02/26/20 02/26/20 02/26/20 12:21 12:30 12:41 Temperature Pulse Rate 119 H 122 H 114 H Pulse Rate [ From Monitor] Respiratory 24 33 H 22 Rate Blood Pressure 123/73 125/76 125/76 O2 Sat by Pulse 100 100 100 Oximetry O2 Sat by Pulse Oximetry [ Assessment] 02/26/20 02/26/20 02/26/20 12:49 12:51 13:00 Temperature Pulse Rate 123 H 125 H 124 H Pulse Rate [ From Monitor] Respiratory 26 H 27 H Rate Blood Pressure 125/76 125/76 119/73 O2 Sat by Pulse 100 100 100 Oximetry O2 Sat by Pulse 100 Oximetry [ Assessment] 02/26/20 13:11 Temperature Pulse Rate 122 H Pulse Rate [ From Monitor] Respiratory 30 H Rate Blood Pressure 119/73 O2 Sat by Pulse 100 Oximetry O2 Sat by Pulse Oximetry [ Assessment] Constitutional: no acute distress, alert, other (elderly chronically ill looking female trach to [facility] [place]) Eyes: non-icteric ENT: oropharynx moist, other (trach) Neck: supple, no lymphadenopathy, no JVD Effort: normal Ascultation: Bilateral: diminished breath sounds, rhonchi (scant bases) Percussion: Bilateral: not dull Cardiovascular: regular rate and rhythm, other (S1,S2) Gastrointestinal: normoactive bowel sounds, soft, non-tender, non-distended, other (PEG in place) Integumentary: decubitus ulcer Extremities: no cyanosis, pulses normal, no ischemia or petechiae, edema (bilateral upper extremity edema) Neurologic: pupils equal and round, other (awake and alert, not obeying comma nds) Psychiatric: other (Unable to assess secondary to mental status) CBC and BMP: 02/24/20 07:02 02/24/20 04:20 ABG, PT/INR, D-dimer: ABG ABG pH 7.498 pH Units (7.350-7.450) H 02/25/20 20:30 POC ABG pCO2 37.3 mmHg (32.0-48.0) 02/24/20 13:39 ABG pCO2 34.0 mm Hg 02/25/20 20:30 POC ABG pO2 108.0 mmHg (83-108) 02/24/20 13:39 ABG pO2 146.1 mm Hg (80.0-90.0) H 02/25/20 20:30 POC ABG HCO3 28.2 02/24/20 13:39 ABG O2 Saturation 98.9 % (95.0-99.0) 02/25/20 20:30 PT/INR, D-dimer PT 14.4 Sec. (12.2-14.9) 02/02/20 05:25 INR 1.11 (0.87-1.13) 02/02/20 05:25 Abnormal lab findings: Abnormal Labs 01/08/20 01/08/20 01/08/20 16:29 16:29 16:29 WBC 13.5 H RBC Hgb Hct MCHC RDW 15.5 H Plt Count MCH Lymph % (Auto) Lymph # Lymph # (Auto) Seg Neutrophils % Seg Neuts % (Manual) 85.0 H Lymphocytes % (Manual) 11.0 L Seg Neutrophils # Seg Neutrophils # Man 11.5 H Basophils % (Manual) Nucleated RBC % Lymphocytes # (Manual) Monocytes # (Manual) Basophils # (Manual) PT INR Heparin Anti-Xa Level POC ABG pO2 ABG pH ABG Hemoglobin ABG Oxyhemoglobin ABG pO2 ABG HCO3 ABG O2 Saturation ABG Base Excess ABG Sodium ABG Potassium ABG Chloride ABG Glucose Oxyhemoglobin Sodium 161 H* Potassium Chloride 125.5 H Carbon Dioxide 20 L BUN 30 H Creatinine Glucose 115 H POC Glucose Lactic Acid 2.20 H* Calcium 7.9 L AST 48 H Phosphorus Total Protein Albumin 2.5 L C-Reactive Protein Arterial Blood Glucose Arterial Blood Ionized Calcium Urine WBC (Auto) Crossmatch 01/08/20 01/08/20 01/08/20 19:02 23:30 Unknown WBC RBC Hgb Hct MCHC RDW Plt Count MCH Lymph % (Auto) Lymph # Lymph # (Auto) Seg Neutrophils % Seg Neuts % (Manual) Lymphocytes % (Manual) Seg Neutrophils # Seg Neutrophils # Man Basophils % (Manual) Nucleated RBC % Lymphocytes # (Manual) Monocytes # (Manual) Basophils # (Manual) PT INR Heparin Anti-Xa Level POC ABG pO2 ABG pH ABG Hemoglobin ABG Oxyhemoglobin ABG pO2 ABG HCO3 ABG O2 Saturation ABG Base Excess ABG Sodium ABG Potassium ABG Chloride ABG Glucose Oxyhemoglobin Sodium Potassium Chloride Carbon Dioxide BUN Creatinine Glucose POC Glucose Lactic Acid 2.10 H* 2.50 H* Calcium AST Phosphorus Total Protein Albumin C-Reactive Protein Arterial Blood Glucose Arterial Blood Ionized Calcium Urine WBC (Auto) 11.0 H Crossmatch 01/09/20 01/09/20 01/09/20 00:19 00:54 05:52 WBC 13.5 H RBC 3.02 L Hgb 9.0 L D Hct 27.4 L D MCHC RDW Plt Count MCH Lymph % (Auto) 9.1 L Lymph # Lymph # (Auto) Seg Neutrophils % 87.6 H Seg Neuts % (Manual) Lymphocytes % (Manual) Seg Neutrophils # 11.8 H Seg Neutrophils # Man Basophils % (Manual) Nucleated RBC % Lymphocytes # (Manual) Monocytes # (Manual) Basophils # (Manual) PT INR Heparin Anti-Xa Level POC ABG pO2 ABG pH ABG Hemoglobin ABG Oxyhemoglobin ABG pO2 ABG HCO3 ABG O2 Saturation ABG Base Excess ABG Sodium ABG Potassium ABG Chloride ABG Glucose Oxyhemoglobin Sodium Potassium Chloride Carbon Dioxide BUN Creatinine Glucose POC Glucose 118 H 116 H Lactic Acid Calcium AST Phosphorus Total Protein Albumin C-Reactive Protein Arterial Blood Glucose Arterial Blood Ionized Calcium Urine WBC (Auto) Crossmatch 01/09/20 01/09/20 01/09/20 05:52 05:52 13:03 WBC RBC Hgb Hct MCHC RDW Plt Count MCH Lymph % (Auto) Lymph # Lymph # (Auto) Seg Neutrophils % Seg Neuts % (Manual) Lymphocytes % (Manual) Seg Neutrophils # Seg Neutrophils # Man Basophils % (Manual) Nucleated RBC % Lymphocytes # (Manual) Monocytes # (Manual) Basophils # (Manual) PT 17.1 H INR 1.36 H Heparin Anti-Xa Level POC ABG pO2 ABG pH ABG Hemoglobin ABG Oxyhemoglobin ABG pO2 ABG HCO3 ABG O2 Saturation ABG Base Excess ABG Sodium ABG Potassium ABG Chloride ABG Glucose Oxyhemoglobin Sodium 162 H* Potassium 3.0 L D Chloride 128.3 H Carbon Dioxide BUN 23 H Creatinine Glucose POC Glucose 55 L Lactic Acid Calcium 7.6 L AST Phosphorus Total Protein Albumin C-Reactive Protein Arterial Blood Glucose Arterial Blood Ionized Calcium Urine WBC (Auto) Crossmatch 01/09/20 01/09/20 01/09/20 21:22 21:50 22:28 WBC RBC Hgb Hct MCHC RDW Plt Count MCH Lymph % (Auto) Lymph # Lymph # (Auto) Seg Neutrophils % Seg Neuts % (Manual) Lymphocytes % (Manual) Seg Neutrophils # Seg Neutrophils # Man Basophils % (Manual) Nucleated RBC % Lymphocytes # (Manual) Monocytes # (Manual) Basophils # (Manual) PT INR Heparin Anti-Xa Level POC ABG pO2 ABG pH ABG Hemoglobin ABG Oxyhemoglobin ABG pO2 ABG HCO3 ABG O2 Saturation ABG Base Excess ABG Sodium ABG Potassium ABG Chloride ABG Glucose Oxyhemoglobin Sodium 159 H Potassium 5.1 H D Chloride 128.5 H Carbon Dioxide 16 L BUN 23 H Creatinine Glucose 51 L POC Glucose 52 L 106 H Lactic Acid Calcium 8.2 L AST Phosphorus Total Protein Albumin C-Reactive Protein Arterial Blood Glucose Arterial Blood Ionized Calcium Urine WBC (Auto) Crossmatch 01/10/20 01/10/20 01/10/20 05:23 09:11 10:10 WBC 13.4 H RBC Hgb Hct MCHC RDW Plt Count MCH Lymph % (Auto) 7.2 L Lymph # 1.0 L Lymph # (Auto) Seg Neutrophils % 90.0 H Seg Neuts % (Manual) Lymphocytes % (Manual) Seg Neutrophils # 12.0 H Seg Neutrophils # Man Basophils % (Manual) Nucleated RBC % Lymphocytes # (Manual) Monocytes # (Manual) Basophils # (Manual) PT INR Heparin Anti-Xa Level POC ABG pO2 ABG pH ABG Hemoglobin ABG Oxyhemoglobin ABG pO2 ABG HCO3 ABG O2 Saturation ABG Base Excess ABG Sodium ABG Potassium ABG Chloride ABG Glucose Oxyhemoglobin Sodium 155 H Potassium Chloride 122.8 H Carbon Dioxide 21 L BUN 19 H Creatinine Glucose POC Glucose 120 H Lactic Acid Calcium AST Phosphorus Total Protein Albumin C-Reactive Protein Arterial Blood Glucose Arterial Blood Ionized Calcium Urine WBC (Auto) Crossmatch 01/10/20 01/10/20 01/10/20 11:47 11:57 17:09 WBC RBC Hgb Hct MCHC RDW Plt Count MCH Lymph % (Auto) Lymph # Lymph # (Auto) Seg Neutrophils % Seg Neuts % (Manual) Lymphocytes % (Manual) Seg Neutrophils # Seg Neutrophils # Man Basophils % (Manual) Nucleated RBC % Lymphocytes # (Manual) Monocytes # (Manual) Basophils # (Manual) PT INR Heparin Anti-Xa Level POC ABG pO2 ABG pH ABG Hemoglobin ABG Oxyhemoglobin ABG pO2 ABG HCO3 ABG O2 Saturation ABG Base Excess ABG Sodium ABG Potassium ABG Chloride ABG Glucose Oxyhemoglobin Sodium 153 H Potassium Chloride 118.3 H Carbon Dioxide 20 L BUN 19 H Creatinine Glucose 113 H POC Glucose 142 H 125 H Lactic Acid Calcium AST Phosphorus Total Protein Albumin C-Reactive Protein Arterial Blood Glucose Arterial Blood Ionized Calcium Urine WBC (Auto) Crossmatch 01/10/20 01/10/20 01/11/20 20:27 22:00 00:45 WBC RBC Hgb Hct MCHC RDW Plt Count MCH Lymph % (Auto) Lymph # Lymph # (Auto) Seg Neutrophils % Seg Neuts % (Manual) Lymphocytes % (Manual) Seg Neutrophils # Seg Neutrophils # Man Basophils % (Manual) Nucleated RBC % Lymphocytes # (Manual) Monocytes # (Manual) Basophils # (Manual) PT INR Heparin Anti-Xa Level POC ABG pO2 ABG pH ABG Hemoglobin ABG Oxyhemoglobin ABG pO2 ABG HCO3 ABG O2 Saturation ABG Base Excess ABG Sodium ABG Potassium ABG Chloride ABG Glucose Oxyhemoglobin Sodium 153 H 154 H Potassium 3.3 L 3.2 L Chloride 117.0 H 118.9 H Carbon Dioxide 20 L BUN Creatinine Glucose POC Glucose 136 H Lactic Acid Calcium 8.3 L 8.0 L AST Phosphorus Total Protein Albumin C-Reactive Protein Arterial Blood Glucose Arterial Blood Ionized Calcium Urine WBC (Auto) Crossmatch 01/11/20 01/11/20 01/11/20 07:06 08:03 11:54 WBC RBC Hgb Hct MCHC RDW Plt Count MCH Lymph % (Auto) Lymph # Lymph # (Auto) Seg Neutrophils % Seg Neuts % (Manual) Lymphocytes % (Manual) Seg Neutrophils # Seg Neutrophils # Man Basophils % (Manual) Nucleated RBC % Lymphocytes # (Manual) Monocytes # (Manual) Basophils # (Manual) PT INR Heparin Anti-Xa Level POC ABG pO2 ABG pH ABG Hemoglobin ABG Oxyhemoglobin ABG pO2 ABG HCO3 ABG O2 Saturation ABG Base Excess ABG Sodium ABG Potassium ABG Chloride ABG Glucose Oxyhemoglobin Sodium 151 H Potassium Chloride 118.7 H Carbon Dioxide 21 L BUN Creatinine Glucose 107 H POC Glucose 118 H 164 H Lactic Acid Calcium 8.3 L AST Phosphorus Total Protein Albumin C-Reactive Protein Arterial Blood Glucose Arterial Blood Ionized Calcium Urine WBC (Auto) Crossmatch 01/11/20 01/12/20 01/12/20 16:28 00:19 05:40 WBC RBC Hgb Hct MCHC RDW Plt Count MCH Lymph % (Auto) Lymph # Lymph # (Auto) Seg Neutrophils % Seg Neuts % (Manual) Lymphocytes % (Manual) Seg Neutrophils # Seg Neutrophils # Man Basophils % (Manual) Nucleated RBC % Lymphocytes # (Manual) Monocytes # (Manual) Basophils # (Manual) PT INR Heparin Anti-Xa Level POC ABG pO2 ABG pH ABG Hemoglobin ABG Oxyhemoglobin ABG pO2 ABG HCO3 ABG O2 Saturation ABG Base Excess ABG Sodium ABG Potassium ABG Chloride ABG Glucose Oxyhemoglobin Sodium 148 H Potassium Chloride 111.6 H Carbon Dioxide 19 L BUN Creatinine Glucose 128 H POC Glucose 132 H 179 H Lactic Acid Calcium 8.2 L AST Phosphorus Total Protein Albumin C-Reactive Protein Arterial Blood Glucose Arterial Blood Ionized Calcium Urine WBC (Auto) Crossmatch 01/12/20 01/12/20 01/12/20 06:17 11:37 17:21 WBC RBC Hgb Hct MCHC RDW Plt Count MCH Lymph % (Auto) Lymph # Lymph # (Auto) Seg Neutrophils % Seg Neuts % (Manual) Lymphocytes % (Manual) Seg Neutrophils # Seg Neutrophils # Man Basophils % (Manual) Nucleated RBC % Lymphocytes # (Manual) Monocytes # (Manual) Basophils # (Manual) PT INR Heparin Anti-Xa Level POC ABG pO2 ABG pH ABG Hemoglobin ABG Oxyhemoglobin ABG pO2 ABG HCO3 ABG O2 Saturation ABG Base Excess ABG Sodium ABG Potassium ABG Chloride ABG Glucose Oxyhemoglobin Sodium Potassium Chloride Carbon Dioxide BUN Creatinine Glucose POC Glucose 140 H 142 H 133 H Lactic Acid Calcium AST Phosphorus Total Protein Albumin C-Reactive Protein Arterial Blood Glucose Arterial Blood Ionized Calcium Urine WBC (Auto) Crossmatch 01/12/20 01/13/20 01/13/20 23:14 05:26 07:00 WBC RBC Hgb Hct MCHC RDW Plt Count MCH Lymph % (Auto) Lymph # Lymph # (Auto) Seg Neutrophils % Seg Neuts % (Manual) Lymphocytes % (Manual) Seg Neutrophils # Seg Neutrophils # Man Basophils % (Manual) Nucleated RBC % Lymphocytes # (Manual) Monocytes # (Manual) Basophils # (Manual) PT INR Heparin Anti-Xa Level POC ABG pO2 ABG pH ABG Hemoglobin ABG Oxyhemoglobin ABG pO2 ABG HCO3 ABG O2 Saturation ABG Base Excess ABG Sodium ABG Potassium ABG Chloride ABG Glucose Oxyhemoglobin Sodium Potassium Chloride 110.0 H Carbon Dioxide BUN Creatinine Glucose 139 H POC Glucose 135 H 162 H Lactic Acid Calcium 7.8 L AST Phosphorus Total Protein Albumin C-Reactive Protein Arterial Blood Glucose Arterial Blood Ionized Calcium Urine WBC (Auto) Crossmatch 01/13/20 01/13/20 01/13/20 12:14 17:52 21:40 WBC RBC Hgb Hct MCHC RDW Plt Count MCH Lymph % (Auto) Lymph # Lymph # (Auto) Seg Neutrophils % Seg Neuts % (Manual) Lymphocytes % (Manual) Seg Neutrophils # Seg Neutrophils # Man Basophils % (Manual) Nucleated RBC % Lymphocytes # (Manual) Monocytes # (Manual) Basophils # (Manual) PT INR Heparin Anti-Xa Level POC ABG pO2 ABG pH ABG Hemoglobin ABG Oxyhemoglobin ABG pO2 ABG HCO3 ABG O2 Saturation ABG Base Excess ABG Sodium ABG Potassium ABG Chloride ABG Glucose Oxyhemoglobin Sodium Potassium Chloride Carbon Dioxide BUN Creatinine Glucose POC Glucose 205 H 172 H 186 H Lactic Acid Calcium AST Phosphorus Total Protein Albumin C-Reactive Protein Arterial Blood Glucose Arterial Blood Ionized Calcium Urine WBC (Auto) Crossmatch 01/14/20 01/14/20 01/14/20 04:28 11:01 11:01 WBC 14.8 H RBC 3.20 L Hgb 9.5 L Hct 28.0 L MCHC RDW Plt Count MCH Lymph % (Auto) Lymph # Lymph # (Auto) Seg Neutrophils % Seg Neuts % (Manual) Lymphocytes % (Manual) Seg Neutrophils # Seg Neutrophils # Man Basophils % (Manual) Nucleated RBC % Lymphocytes # (Manual) Monocytes # (Manual) Basophils # (Manual) PT INR Heparin Anti-Xa Level POC ABG pO2 ABG pH ABG Hemoglobin ABG Oxyhemoglobin ABG pO2 ABG HCO3 ABG O2 Saturation ABG Base Excess ABG Sodium ABG Potassium ABG Chloride ABG Glucose Oxyhemoglobin Sodium Potassium 3.2 L Chloride Carbon Dioxide BUN Creatinine 0.4 L Glucose POC Glucose 115 H Lactic Acid Calcium 8.0 L AST Phosphorus Total Protein Albumin C-Reactive Protein Arterial Blood Glucose Arterial Blood Ionized Calcium Urine WBC (Auto) Crossmatch 01/14/20 01/14/20 01/14/20 11:01 16:33 22:32 WBC RBC Hgb Hct MCHC RDW Plt Count MCH Lymph % (Auto) Lymph # Lymph # (Auto) Seg Neutrophils % Seg Neuts % (Manual) Lymphocytes % (Manual) Seg Neutrophils # Seg Neutrophils # Man Basophils % (Manual) Nucleated RBC % Lymphocytes # (Manual) Monocytes # (Manual) Basophils # (Manual) PT 15.8 H INR 1.23 H Heparin Anti-Xa Level POC ABG pO2 ABG pH ABG Hemoglobin ABG Oxyhemoglobin ABG pO2 ABG HCO3 ABG O2 Saturation ABG Base Excess ABG Sodium ABG Potassium ABG Chloride ABG Glucose Oxyhemoglobin Sodium Potassium Chloride Carbon Dioxide BUN Creatinine Glucose POC Glucose 58 L 188 H Lactic Acid Calcium AST Phosphorus Total Protein Albumin C-Reactive Protein Arterial Blood Glucose Arterial Blood Ionized Calcium Urine WBC (Auto) Crossmatch 01/15/20 01/15/20 01/15/20 05:35 06:19 17:17 WBC RBC Hgb Hct MCHC RDW Plt Count MCH Lymph % (Auto) Lymph # Lymph # (Auto) Seg Neutrophils % Seg Neuts % (Manual) Lymphocytes % (Manual) Seg Neutrophils # Seg Neutrophils # Man Basophils % (Manual) Nucleated RBC % Lymphocytes # (Manual) Monocytes # (Manual) Basophils # (Manual) PT INR Heparin Anti-Xa Level POC ABG pO2 ABG pH ABG Hemoglobin ABG Oxyhemoglobin ABG pO2 ABG HCO3 ABG O2 Saturation ABG Base Excess ABG Sodium ABG Potassium ABG Chloride ABG Glucose Oxyhemoglobin Sodium Potassium Chloride Carbon Dioxide BUN Creatinine 0.5 L Glucose 104 H POC Glucose 106 H 183 H Lactic Acid Calcium 7.8 L AST Phosphorus Total Protein Albumin C-Reactive Protein Arterial Blood Glucose Arterial Blood Ionized Calcium Urine WBC (Auto) Crossmatch 01/15/20 01/16/20 01/16/20 22:29 05:35 05:59 WBC 14.7 H RBC 3.04 L Hgb 9.0 L Hct 27.0 L MCHC RDW Plt Count MCH Lymph % (Auto) 9.1 L Lymph # Lymph # (Auto) Seg Neutrophils % 87.3 H Seg Neuts % (Manual) Lymphocytes % (Manual) Seg Neutrophils # 12.9 H Seg Neutrophils # Man Basophils % (Manual) Nucleated RBC % Lymphocytes # (Manual) Monocytes # (Manual) Basophils # (Manual) PT INR Heparin Anti-Xa Level POC ABG pO2 ABG pH ABG Hemoglobin ABG Oxyhemoglobin ABG pO2 ABG HCO3 ABG O2 Saturation ABG Base Excess ABG Sodium ABG Potassium ABG Chloride ABG Glucose Oxyhemoglobin Sodium Potassium Chloride Carbon Dioxide BUN Creatinine Glucose POC Glucose 228 H 130 H Lactic Acid Calcium AST Phosphorus Total Protein Albumin C-Reactive Protein Arterial Blood Glucose Arterial Blood Ionized Calcium Urine WBC (Auto) Crossmatch 01/16/20 01/16/20 01/16/20 09:52 12:49 17:30 WBC RBC Hgb Hct MCHC RDW Plt Count MCH Lymph % (Auto) Lymph # Lymph # (Auto) Seg Neutrophils % Seg Neuts % (Manual) Lymphocytes % (Manual) Seg Neutrophils # Seg Neutrophils # Man Basophils % (Manual) Nucleated RBC % Lymphocytes # (Manual) Monocytes # (Manual) Basophils # (Manual) PT INR Heparin Anti-Xa Level POC ABG pO2 ABG pH ABG Hemoglobin ABG Oxyhemoglobin ABG pO2 ABG HCO3 ABG O2 Saturation ABG Base Excess ABG Sodium ABG Potassium ABG Chloride ABG Glucose Oxyhemoglobin Sodium Potassium Chloride Carbon Dioxide BUN Creatinine Glucose POC Glucose 122 H 142 H 192 H Lactic Acid Calcium AST Phosphorus Total Protein Albumin C-Reactive Protein Arterial Blood Glucose Arterial Blood Ionized Calcium Urine WBC (Auto) Crossmatch 01/16/20 01/17/20 01/17/20 23:01 08:36 08:36 WBC 12.7 H RBC 2.98 L Hgb 8.9 L Hct 26.4 L MCHC RDW Plt Count MCH Lymph % (Auto) 8.8 L Lymph # 1.1 L Lymph # (Auto) Seg Neutrophils % 86.7 H Seg Neuts % (Manual) Lymphocytes % (Manual) Seg Neutrophils # 11.0 H Seg Neutrophils # Man Basophils % (Manual) Nucleated RBC % Lymphocytes # (Manual) Monocytes # (Manual) Basophils # (Manual) PT INR Heparin Anti-Xa Level POC ABG pO2 ABG pH ABG Hemoglobin ABG Oxyhemoglobin ABG pO2 ABG HCO3 ABG O2 Saturation ABG Base Excess ABG Sodium ABG Potassium ABG Chloride ABG Glucose Oxyhemoglobin Sodium Potassium 3.3 L D Chloride Carbon Dioxide BUN Creatinine 0.4 L Glucose POC Glucose 141 H Lactic Acid Calcium 8.1 L AST Phosphorus Total Protein 4.6 L Albumin 1.6 L C-Reactive Protein Arterial Blood Glucose Arterial Blood Ionized Calcium Urine WBC (Auto) Crossmatch 01/17/20 01/17/20 01/18/20 11:43 23:56 06:27 WBC RBC Hgb Hct MCHC RDW Plt Count MCH Lymph % (Auto) Lymph # Lymph # (Auto) Seg Neutrophils % Seg Neuts % (Manual) Lymphocytes % (Manual) Seg Neutrophils # Seg Neutrophils # Man Basophils % (Manual) Nucleated RBC % Lymphocytes # (Manual) Monocytes # (Manual) Basophils # (Manual) PT INR Heparin Anti-Xa Level POC ABG pO2 ABG pH ABG Hemoglobin ABG Oxyhemoglobin ABG pO2 ABG HCO3 ABG O2 Saturation ABG Base Excess ABG Sodium ABG Potassium ABG Chloride ABG Glucose Oxyhemoglobin Sodium Potassium Chloride Carbon Dioxide BUN Creatinine Glucose POC Glucose 137 H 215 H 122 H Lactic Acid Calcium AST Phosphorus Total Protein Albumin C-Reactive Protein Arterial Blood Glucose Arterial Blood Ionized Calcium Urine WBC (Auto) Crossmatch 01/18/20 01/18/20 01/18/20 07:31 07:31 11:39 WBC 12.1 H RBC 3.23 L Hgb 9.7 L Hct 28.7 L MCHC RDW Plt Count MCH Lymph % (Auto) 9.2 L Lymph # 1.1 L Lymph # (Auto) Seg Neutrophils % 85.0 H Seg Neuts % (Manual) Lymphocytes % (Manual) Seg Neutrophils # 10.3 H Seg Neutrophils # Man Basophils % (Manual) Nucleated RBC % Lymphocytes # (Manual) Monocytes # (Manual) Basophils # (Manual) PT INR Heparin Anti-Xa Level POC ABG pO2 ABG pH ABG Hemoglobin ABG Oxyhemoglobin ABG pO2 ABG HCO3 ABG O2 Saturation ABG Base Excess ABG Sodium ABG Potassium ABG Chloride ABG Glucose Oxyhemoglobin Sodium Potassium Chloride Carbon Dioxide BUN Creatinine 0.4 L Glucose 108 H POC Glucose 172 H Lactic Acid Calcium AST Phosphorus Total Protein 5.3 L Albumin 2.1 L C-Reactive Protein Arterial Blood Glucose Arterial Blood Ionized Calcium Urine WBC (Auto) Crossmatch 01/18/20 01/19/20 01/19/20 18:22 00:15 11:30 WBC RBC Hgb Hct MCHC RDW Plt Count MCH Lymph % (Auto) Lymph # Lymph # (Auto) Seg Neutrophils % Seg Neuts % (Manual) Lymphocytes % (Manual) Seg Neutrophils # Seg Neutrophils # Man Basophils % (Manual) Nucleated RBC % Lymphocytes # (Manual) Monocytes # (Manual) Basophils # (Manual) PT INR Heparin Anti-Xa Level POC ABG pO2 ABG pH ABG Hemoglobin ABG Oxyhemoglobin ABG pO2 ABG HCO3 ABG O2 Saturation ABG Base Excess ABG Sodium ABG Potassium ABG Chloride ABG Glucose Oxyhemoglobin Sodium Potassium Chloride Carbon Dioxide BUN Creatinine Glucose POC Glucose 119 H 135 H 163 H Lactic Acid Calcium AST Phosphorus Total Protein Albumin C-Reactive Protein Arterial Blood Glucose Arterial Blood Ionized Calcium Urine WBC (Auto) Crossmatch 01/19/20 01/19/20 01/20/20 17:44 22:59 03:44 WBC 11.1 H RBC 2.77 L Hgb 8.4 L Hct 25.0 L MCHC RDW Plt Count MCH Lymph % (Auto) Lymph # Lymph # (Auto) Seg Neutrophils % 74.6 H Seg Neuts % (Manual) Lymphocytes % (Manual) Seg Neutrophils # 8.3 H Seg Neutrophils # Man Basophils % (Manual) Nucleated RBC % Lymphocytes # (Manual) Monocytes # (Manual) Basophils # (Manual) PT INR Heparin Anti-Xa Level POC ABG pO2 ABG pH ABG Hemoglobin ABG Oxyhemoglobin ABG pO2 ABG HCO3 ABG O2 Saturation ABG Base Excess ABG Sodium ABG Potassium ABG Chloride ABG Glucose Oxyhemoglobin Sodium Potassium Chloride Carbon Dioxide BUN Creatinine Glucose POC Glucose 161 H 182 H Lactic Acid Calcium AST Phosphorus Total Protein Albumin C-Reactive Protein Arterial Blood Glucose Arterial Blood Ionized Calcium Urine WBC (Auto) Crossmatch 01/20/20 01/21/20 01/21/20 03:44 00:07 05:51 WBC RBC 2.84 L Hgb 8.6 L Hct 25.5 L MCHC RDW Plt Count 463 H MCH Lymph % (Auto) Lymph # Lymph # (Auto) Seg Neutrophils % 76.9 H Seg Neuts % (Manual) Lymphocytes % (Manual) Seg Neutrophils # 7.8 H Seg Neutrophils # Man Basophils % (Manual) Nucleated RBC % Lymphocytes # (Manual) Monocytes # (Manual) Basophils # (Manual) PT INR Heparin Anti-Xa Level POC ABG pO2 ABG pH ABG Hemoglobin ABG Oxyhemoglobin ABG pO2 ABG HCO3 ABG O2 Saturation ABG Base Excess ABG Sodium ABG Potassium ABG Chloride ABG Glucose Oxyhemoglobin Sodium Potassium Chloride Carbon Dioxide BUN Creatinine 0.4 L Glucose POC Glucose 68 L Lactic Acid Calcium 7.9 L AST Phosphorus Total Protein 4.7 L Albumin 1.9 L C-Reactive Protein Arterial Blood Glucose Arterial Blood Ionized Calcium Urine WBC (Auto) Crossmatch 01/21/20 01/21/20 01/21/20 05:51 05:58 11:25 WBC RBC Hgb Hct MCHC RDW Plt Count MCH Lymph % (Auto) Lymph # Lymph # (Auto) Seg Neutrophils % Seg Neuts % (Manual) Lymphocytes % (Manual) Seg Neutrophils # Seg Neutrophils # Man Basophils % (Manual) Nucleated RBC % Lymphocytes # (Manual) Monocytes # (Manual) Basophils # (Manual) PT INR Heparin Anti-Xa Level POC ABG pO2 ABG pH ABG Hemoglobin ABG Oxyhemoglobin ABG pO2 ABG HCO3 ABG O2 Saturation ABG Base Excess ABG Sodium ABG Potassium ABG Chloride ABG Glucose Oxyhemoglobin Sodium Potassium Chloride Carbon Dioxide 20 L BUN Creatinine 0.5 L Glucose 130 H POC Glucose 185 H 163 H Lactic Acid Calcium 7.6 L AST Phosphorus Total Protein 5.0 L Albumin 1.9 L C-Reactive Protein Arterial Blood Glucose Arterial Blood Ionized Calcium Urine WBC (Auto) Crossmatch 01/21/20 01/21/20 01/22/20 16:22 21:17 01:28 WBC RBC 2.60 L Hgb 8.0 L Hct 23.3 L MCHC RDW Plt Count MCH Lymph % (Auto) Lymph # Lymph # (Auto) Seg Neutrophils % 74.8 H Seg Neuts % (Manual) Lymphocytes % (Manual) Seg Neutrophils # Seg Neutrophils # Man Basophils % (Manual) Nucleated RBC % Lymphocytes # (Manual) Monocytes # (Manual) Basophils # (Manual) PT INR Heparin Anti-Xa Level POC ABG pO2 ABG pH ABG Hemoglobin ABG Oxyhemoglobin ABG pO2 ABG HCO3 ABG O2 Saturation ABG Base Excess ABG Sodium ABG Potassium ABG Chloride ABG Glucose Oxyhemoglobin Sodium Potassium Chloride Carbon Dioxide BUN Creatinine Glucose POC Glucose 177 H 67 L Lactic Acid Calcium AST Phosphorus Total Protein Albumin C-Reactive Protein Arterial Blood Glucose Arterial Blood Ionized Calcium Urine WBC (Auto) Crossmatch 01/22/20 01/22/20 01/22/20 01:28 01:28 12:06 WBC RBC Hgb Hct MCHC RDW Plt Count MCH Lymph % (Auto) Lymph # Lymph # (Auto) Seg Neutrophils % Seg Neuts % (Manual) Lymphocytes % (Manual) Seg Neutrophils # Seg Neutrophils # Man Basophils % (Manual) Nucleated RBC % Lymphocytes # (Manual) Monocytes # (Manual) Basophils # (Manual) PT INR Heparin Anti-Xa Level POC ABG pO2 ABG pH ABG Hemoglobin ABG Oxyhemoglobin ABG pO2 ABG HCO3 ABG O2 Saturation ABG Base Excess ABG Sodium ABG Potassium ABG Chloride ABG Glucose Oxyhemoglobin Sodium Potassium Chloride 107.6 H Carbon Dioxide BUN Creatinine 0.4 L Glucose 152 H POC Glucose 203 H 140 H Lactic Acid Calcium 7.5 L AST Phosphorus Total Protein 4.0 L Albumin 2.0 L C-Reactive Protein Arterial Blood Glucose Arterial Blood Ionized Calcium Urine WBC (Auto) Crossmatch 01/22/20 01/22/20 01/23/20 16:24 22:55 06:10 WBC RBC 2.68 L Hgb 8.6 L Hct 24.1 L MCHC 36 H RDW Plt Count MCH Lymph % (Auto) Lymph # Lymph # (Auto) Seg Neutrophils % Seg Neuts % (Manual) 71.0 H Lymphocytes % (Manual) Seg Neutrophils # Seg Neutrophils # Man Basophils % (Manual) Nucleated RBC % Lymphocytes # (Manual) Monocytes # (Manual) Basophils # (Manual) PT INR Heparin Anti-Xa Level POC ABG pO2 ABG pH ABG Hemoglobin ABG Oxyhemoglobin ABG pO2 ABG HCO3 ABG O2 Saturation ABG Base Excess ABG Sodium ABG Potassium ABG Chloride ABG Glucose Oxyhemoglobin Sodium Potassium Chloride Carbon Dioxide BUN Creatinine Glucose POC Glucose 205 H 196 H Lactic Acid Calcium AST Phosphorus Total Protein Albumin C-Reactive Protein Arterial Blood Glucose Arterial Blood Ionized Calcium Urine WBC (Auto) Crossmatch 01/23/20 01/23/20 01/23/20 06:10 07:35 11:59 WBC RBC Hgb Hct MCHC RDW Plt Count MCH Lymph % (Auto) Lymph # Lymph # (Auto) Seg Neutrophils % Seg Neuts % (Manual) Lymphocytes % (Manual) Seg Neutrophils # Seg Neutrophils # Man Basophils % (Manual) Nucleated RBC % Lymphocytes # (Manual) Monocytes # (Manual) Basophils # (Manual) PT INR Heparin Anti-Xa Level POC ABG pO2 ABG pH ABG Hemoglobin ABG Oxyhemoglobin ABG pO2 ABG HCO3 ABG O2 Saturation ABG Base Excess ABG Sodium ABG Potassium ABG Chloride ABG Glucose Oxyhemoglobin Sodium Potassium Chloride 108.8 H Carbon Dioxide BUN Creatinine 0.4 L Glucose 105 H POC Glucose 111 H 123 H Lactic Acid Calcium 8.0 L AST Phosphorus Total Protein 4.9 L D Albumin 2.0 L C-Reactive Protein Arterial Blood Glucose Arterial Blood Ionized Calcium Urine WBC (Auto) Crossmatch 01/23/20 01/24/20 01/24/20 22:45 11:24 16:41 WBC RBC Hgb Hct MCHC RDW Plt Count MCH Lymph % (Auto) Lymph # Lymph # (Auto) Seg Neutrophils % Seg Neuts % (Manual) Lymphocytes % (Manual) Seg Neutrophils # Seg Neutrophils # Man Basophils % (Manual) Nucleated RBC % Lymphocytes # (Manual) Monocytes # (Manual) Basophils # (Manual) PT INR Heparin Anti-Xa Level POC ABG pO2 ABG pH ABG Hemoglobin ABG Oxyhemoglobin ABG pO2 ABG HCO3 ABG O2 Saturation ABG Base Excess ABG Sodium ABG Potassium ABG Chloride ABG Glucose Oxyhemoglobin Sodium Potassium Chloride Carbon Dioxide BUN Creatinine Glucose POC Glucose 180 H 182 H 177 H Lactic Acid Calcium AST Phosphorus Total Protein Albumin C-Reactive Protein Arterial Blood Glucose Arterial Blood Ionized Calcium Urine WBC (Auto) Crossmatch 01/24/20 01/25/20 01/25/20 23:11 07:12 11:35 WBC RBC Hgb Hct MCHC RDW Plt Count MCH Lymph % (Auto) Lymph # Lymph # (Auto) Seg Neutrophils % Seg Neuts % (Manual) Lymphocytes % (Manual) Seg Neutrophils # Seg Neutrophils # Man Basophils % (Manual) Nucleated RBC % Lymphocytes # (Manual) Monocytes # (Manual) Basophils # (Manual) PT INR Heparin Anti-Xa Level POC ABG pO2 ABG pH ABG Hemoglobin ABG Oxyhemoglobin ABG pO2 ABG HCO3 ABG O2 Saturation ABG Base Excess ABG Sodium ABG Potassium ABG Chloride ABG Glucose Oxyhemoglobin Sodium Potassium Chloride Carbon Dioxide BUN Creatinine Glucose POC Glucose 142 H 135 H 142 H Lactic Acid Calcium AST Phosphorus Total Protein Albumin C-Reactive Protein Arterial Blood Glucose Arterial Blood Ionized Calcium Urine WBC (Auto) Crossmatch 01/25/20 01/26/20 01/26/20 16:33 00:04 11:35 WBC RBC Hgb Hct MCHC RDW Plt Count MCH Lymph % (Auto) Lymph # Lymph # (Auto) Seg Neutrophils % Seg Neuts % (Manual) Lymphocytes % (Manual) Seg Neutrophils # Seg Neutrophils # Man Basophils % (Manual) Nucleated RBC % Lymphocytes # (Manual) Monocytes # (Manual) Basophils # (Manual) PT INR Heparin Anti-Xa Level POC ABG pO2 ABG pH ABG Hemoglobin ABG Oxyhemoglobin ABG pO2 ABG HCO3 ABG O2 Saturation ABG Base Excess ABG Sodium ABG Potassium ABG Chloride ABG Glucose Oxyhemoglobin Sodium Potassium Chloride Carbon Dioxide BUN Creatinine Glucose POC Glucose 247 H 233 H 200 H Lactic Acid Calcium AST Phosphorus Total Protein Albumin C-Reactive Protein Arterial Blood Glucose Arterial Blood Ionized Calcium Urine WBC (Auto) Crossmatch 01/26/20 01/26/20 01/26/20 16:30 16:30 17:19 WBC RBC Hgb 7.4 L Hct 22.0 L MCHC RDW Plt Count MCH Lymph % (Auto) Lymph # Lymph # (Auto) Seg Neutrophils % Seg Neuts % (Manual) Lymphocytes % (Manual) Seg Neutrophils # Seg Neutrophils # Man Basophils % (Manual) Nucleated RBC % Lymphocytes # (Manual) Monocytes # (Manual) Basophils # (Manual) PT 18.4 H INR 1.50 H Heparin Anti-Xa Level POC ABG pO2 ABG pH ABG Hemoglobin ABG Oxyhemoglobin ABG pO2 ABG HCO3 ABG O2 Saturation ABG Base Excess ABG Sodium ABG Potassium ABG Chloride ABG Glucose Oxyhemoglobin Sodium Potassium Chloride Carbon Dioxide BUN Creatinine Glucose POC Glucose 67 L Lactic Acid Calcium AST Phosphorus Total Protein Albumin C-Reactive Protein Arterial Blood Glucose Arterial Blood Ionized Calcium Urine WBC (Auto) Crossmatch 01/26/20 01/26/20 01/27/20 20:24 21:32 00:16 WBC RBC Hgb Hct MCHC RDW Plt Count MCH Lymph % (Auto) Lymph # Lymph # (Auto) Seg Neutrophils % Seg Neuts % (Manual) Lymphocytes % (Manual) Seg Neutrophils # Seg Neutrophils # Man Basophils % (Manual) Nucleated RBC % Lymphocytes # (Manual) Monocytes # (Manual) Basophils # (Manual) PT INR Heparin Anti-Xa Level POC ABG pO2 51.8 L ABG pH ABG Hemoglobin 8.5 L ABG Oxyhemoglobin 84.7 L ABG pO2 ABG HCO3 ABG O2 Saturation ABG Base Excess ABG Sodium ABG Potassium ABG Chloride ABG Glucose Oxyhemoglobin Sodium Potassium Chloride Carbon Dioxide BUN Creatinine Glucose POC Glucose 162 H 141 H Lactic Acid Calcium AST Phosphorus Total Protein Albumin C-Reactive Protein Arterial Blood Glucose Arterial Blood Ionized Calcium Urine WBC (Auto) Crossmatch 01/27/20 01/27/20 01/27/20 01:42 02:18 05:57 WBC RBC Hgb Hct MCHC RDW Plt Count MCH Lymph % (Auto) Lymph # Lymph # (Auto) Seg Neutrophils % Seg Neuts % (Manual) Lymphocytes % (Manual) Seg Neutrophils # Seg Neutrophils # Man Basophils % (Manual) Nucleated RBC % Lymphocytes # (Manual) Monocytes # (Manual) Basophils # (Manual) PT INR Heparin Anti-Xa Level 2.00 H POC ABG pO2 ABG pH ABG Hemoglobin ABG Oxyhemoglobin ABG pO2 ABG HCO3 ABG O2 Saturation ABG Base Excess ABG Sodium ABG Potassium ABG Chloride ABG Glucose Oxyhemoglobin Sodium Potassium Chloride Carbon Dioxide BUN Creatinine Glucose POC Glucose 183 H 124 H Lactic Acid Calcium AST Phosphorus Total Protein Albumin C-Reactive Protein Arterial Blood Glucose Arterial Blood Ionized Calcium Urine WBC (Auto) Crossmatch 01/27/20 01/27/20 01/27/20 06:30 06:30 12:23 WBC RBC 2.75 L Hgb 8.4 L Hct 24.9 L MCHC RDW 16.0 H Plt Count 474 H MCH Lymph % (Auto) 12.7 L Lymph # Lymph # (Auto) Seg Neutrophils % 83.2 H Seg Neuts % (Manual) Lymphocytes % (Manual) Seg Neutrophils # 8.4 H Seg Neutrophils # Man Basophils % (Manual) Nucleated RBC % Lymphocytes # (Manual) Monocytes # (Manual) Basophils # (Manual) PT INR Heparin Anti-Xa Level POC ABG pO2 ABG pH ABG Hemoglobin ABG Oxyhemoglobin ABG pO2 ABG HCO3 ABG O2 Saturation ABG Base Excess ABG Sodium ABG Potassium ABG Chloride ABG Glucose Oxyhemoglobin Sodium Potassium 3.5 L Chloride 110.2 H Carbon Dioxide BUN Creatinine 0.4 L Glucose 101 H POC Glucose 126 H Lactic Acid Calcium 7.8 L AST Phosphorus Total Protein Albumin C-Reactive Protein Arterial Blood Glucose Arterial Blood Ionized Calcium Urine WBC (Auto) Crossmatch 01/27/20 01/27/20 01/28/20 17:31 23:40 00:00 WBC RBC Hgb Hct MCHC RDW Plt Count MCH Lymph % (Auto) Lymph # Lymph # (Auto) Seg Neutrophils % Seg Neuts % (Manual) Lymphocytes % (Manual) Seg Neutrophils # Seg Neutrophils # Man Basophils % (Manual) Nucleated RBC % Lymphocytes # (Manual) Monocytes # (Manual) Basophils # (Manual) PT INR Heparin Anti-Xa Level 2.00 H POC ABG pO2 ABG pH ABG Hemoglobin ABG Oxyhemoglobin ABG pO2 ABG HCO3 ABG O2 Saturation ABG Base Excess ABG Sodium ABG Potassium ABG Chloride ABG Glucose Oxyhemoglobin Sodium Potassium Chloride Carbon Dioxide BUN Creatinine Glucose POC Glucose 133 H 136 H Lactic Acid Calcium AST Phosphorus Total Protein Albumin C-Reactive Protein Arterial Blood Glucose Arterial Blood Ionized Calcium Urine WBC (Auto) Crossmatch 01/28/20 01/28/20 01/28/20 04:26 04:26 05:35 WBC RBC Hgb 9.6 L Hct 28.5 L MCHC RDW Plt Count 508 H MCH Lymph % (Auto) Lymph # Lymph # (Auto) Seg Neutrophils % Seg Neuts % (Manual) Lymphocytes % (Manual) Seg Neutrophils # Seg Neutrophils # Man Basophils % (Manual) Nucleated RBC % Lymphocytes # (Manual) Monocytes # (Manual) Basophils # (Manual) PT INR Heparin Anti-Xa Level POC ABG pO2 ABG pH ABG Hemoglobin ABG Oxyhemoglobin ABG pO2 ABG HCO3 ABG O2 Saturation ABG Base Excess ABG Sodium ABG Potassium ABG Chloride ABG Glucose Oxyhemoglobin Sodium Potassium Chloride Carbon Dioxide 19 L BUN 20 H Creatinine 0.5 L Glucose 103 H POC Glucose 135 H Lactic Acid Calcium 7.9 L AST Phosphorus Total Protein Albumin C-Reactive Protein Arterial Blood Glucose Arterial Blood Ionized Calcium Urine WBC (Auto) Crossmatch 01/28/20 01/28/20 01/28/20 08:50 11:10 11:51 WBC RBC Hgb Hct MCHC RDW Plt Count MCH Lymph % (Auto) Lymph # Lymph # (Auto) Seg Neutrophils % Seg Neuts % (Manual) Lymphocytes % (Manual) Seg Neutrophils # Seg Neutrophils # Man Basophils % (Manual) Nucleated RBC % Lymphocytes # (Manual) Monocytes # (Manual) Basophils # (Manual) PT INR Heparin Anti-Xa Level 0.74 H POC ABG pO2 67.2 L ABG pH ABG Hemoglobin 9.3 L ABG Oxyhemoglobin ABG pO2 ABG HCO3 ABG O2 Saturation ABG Base Excess ABG Sodium ABG Potassium ABG Chloride ABG Glucose Oxyhemoglobin Sodium Potassium Chloride Carbon Dioxide BUN Creatinine Glucose POC Glucose 160 H Lactic Acid Calcium AST Phosphorus Total Protein Albumin C-Reactive Protein Arterial Blood Glucose Arterial Blood Ionized Calcium Urine WBC (Auto) Crossmatch 01/28/20 01/28/20 01/29/20 17:19 23:53 03:52 WBC RBC Hgb Hct MCHC RDW Plt Count MCH Lymph % (Auto) Lymph # Lymph # (Auto) Seg Neutrophils % Seg Neuts % (Manual) Lymphocytes % (Manual) Seg Neutrophils # Seg Neutrophils # Man Basophils % (Manual) Nucleated RBC % Lymphocytes # (Manual) Monocytes # (Manual) Basophils # (Manual) PT INR Heparin Anti-Xa Level POC ABG pO2 ABG pH 7.510 H ABG Hemoglobin 7.3 L ABG Oxyhemoglobin ABG pO2 357.0 H ABG HCO3 19.6 L ABG O2 Saturation 99.6 H ABG Base Excess -2.9 L ABG Sodium ABG Potassium ABG Chloride ABG Glucose Oxyhemoglobin Sodium Potassium Chloride Carbon Dioxide BUN Creatinine Glucose POC Glucose 177 H 142 H Lactic Acid Calcium AST Phosphorus Total Protein Albumin C-Reactive Protein Arterial Blood Glucose Arterial Blood Ionized Calcium Urine WBC (Auto) Crossmatch 01/29/20 01/29/20 01/29/20 04:58 04:58 06:01 WBC 13.1 H RBC 2.75 L Hgb 8.6 L Hct 25.6 L MCHC RDW 17.7 H Plt Count MCH Lymph % (Auto) Lymph # Lymph # (Auto) Seg Neutrophils % Seg Neuts % (Manual) 91.0 H Lymphocytes % (Manual) 6.0 L Seg Neutrophils # Seg Neutrophils # Man 11.9 H Basophils % (Manual) Nucleated RBC % 1.0 H Lymphocytes # (Manual) 0.8 L Monocytes # (Manual) Basophils # (Manual) PT INR Heparin Anti-Xa Level POC ABG pO2 ABG pH ABG Hemoglobin ABG Oxyhemoglobin ABG pO2 ABG HCO3 ABG O2 Saturation ABG Base Excess ABG Sodium ABG Potassium ABG Chloride ABG Glucose Oxyhemoglobin Sodium 148 H Potassium 3.5 L D Chloride 113.2 H Carbon Dioxide 21 L BUN 20 H Creatinine Glucose 137 H POC Glucose 167 H Lactic Acid Calcium 8.1 L AST Phosphorus Total Protein Albumin C-Reactive Protein Arterial Blood Glucose Arterial Blood Ionized Calcium Urine WBC (Auto) Crossmatch 01/29/20 01/29/20 01/29/20 11:45 17:52 23:49 WBC RBC Hgb Hct MCHC RDW Plt Count MCH Lymph % (Auto) Lymph # Lymph # (Auto) Seg Neutrophils % Seg Neuts % (Manual) Lymphocytes % (Manual) Seg Neutrophils # Seg Neutrophils # Man Basophils % (Manual) Nucleated RBC % Lymphocytes # (Manual) Monocytes # (Manual) Basophils # (Manual) PT INR Heparin Anti-Xa Level POC ABG pO2 ABG pH ABG Hemoglobin ABG Oxyhemoglobin ABG pO2 ABG HCO3 ABG O2 Saturation ABG Base Excess ABG Sodium ABG Potassium ABG Chloride ABG Glucose Oxyhemoglobin Sodium Potassium Chloride Carbon Dioxide BUN Creatinine Glucose POC Glucose 185 H 226 H 141 H Lactic Acid Calcium AST Phosphorus Total Protein Albumin C-Reactive Protein Arterial Blood Glucose Arterial Blood Ionized Calcium Urine WBC (Auto) Crossmatch 01/29/20 01/30/20 01/30/20 Unknown 03:24 04:00 WBC RBC Hgb 7.8 L Hct 23.5 L MCHC RDW Plt Count MCH Lymph % (Auto) Lymph # Lymph # (Auto) Seg Neutrophils % Seg Neuts % (Manual) Lymphocytes % (Manual) Seg Neutrophils # Seg Neutrophils # Man Basophils % (Manual) Nucleated RBC % Lymphocytes # (Manual) Monocytes # (Manual) Basophils # (Manual) PT INR Heparin Anti-Xa Level POC ABG pO2 ABG pH 7.485 H ABG Hemoglobin 6.7 L ABG Oxyhemoglobin ABG pO2 102.0 H ABG HCO3 ABG O2 Saturation ABG Base Excess ABG Sodium ABG Potassium ABG Chloride ABG Glucose Oxyhemoglobin Sodium Potassium Chloride Carbon Dioxide BUN Creatinine Glucose POC Glucose Lactic Acid Calcium AST Phosphorus Total Protein Albumin C-Reactive Protein 14.80 H Arterial Blood Glucose Arterial Blood Ionized Calcium Urine WBC (Auto) Crossmatch 01/30/20 01/30/20 01/30/20 05:50 11:15 17:07 WBC RBC Hgb Hct MCHC RDW Plt Count MCH Lymph % (Auto) Lymph # Lymph # (Auto) Seg Neutrophils % Seg Neuts % (Manual) Lymphocytes % (Manual) Seg Neutrophils # Seg Neutrophils # Man Basophils % (Manual) Nucleated RBC % Lymphocytes # (Manual) Monocytes # (Manual) Basophils # (Manual) PT INR Heparin Anti-Xa Level POC ABG pO2 ABG pH ABG Hemoglobin ABG Oxyhemoglobin ABG pO2 ABG HCO3 ABG O2 Saturation ABG Base Excess ABG Sodium ABG Potassium ABG Chloride ABG Glucose Oxyhemoglobin Sodium Potassium Chloride Carbon Dioxide BUN Creatinine Glucose POC Glucose 122 H 207 H 124 H Lactic Acid Calcium AST Phosphorus Total Protein Albumin C-Reactive Protein Arterial Blood Glucose Arterial Blood Ionized Calcium Urine WBC (Auto) Crossmatch 01/30/20 01/31/20 01/31/20 17:08 00:10 04:52 WBC RBC Hgb Hct MCHC RDW Plt Count MCH Lymph % (Auto) Lymph # Lymph # (Auto) Seg Neutrophils % Seg Neuts % (Manual) Lymphocytes % (Manual) Seg Neutrophils # Seg Neutrophils # Man Basophils % (Manual) Nucleated RBC % Lymphocytes # (Manual) Monocytes # (Manual) Basophils # (Manual) PT INR Heparin Anti-Xa Level POC ABG pO2 ABG pH 7.504 H 7.486 H ABG Hemoglobin 7.4 L 6.2 L ABG Oxyhemoglobin ABG pO2 169.2 H 121.7 H ABG HCO3 27.1 H ABG O2 Saturation 99.1 H ABG Base Excess 3.4 H ABG Sodium ABG Potassium ABG Chloride ABG Glucose Oxyhemoglobin Sodium Potassium Chloride Carbon Dioxide BUN Creatinine Glucose POC Glucose 191 H Lactic Acid Calcium AST Phosphorus Total Protein Albumin C-Reactive Protein Arterial Blood Glucose Arterial Blood Ionized Calcium Urine WBC (Auto) Crossmatch 09/26/20 09/26/20 09/26/20 05:37 11:59 12:40 WBC RBC 2.41 L Hgb 7.5 L Hct 22.3 L MCHC RDW 22.2 H Plt Count MCH Lymph % (Auto) Lymph # Lymph # (Auto) Seg Neutrophils % Seg Neuts % (Manual) 94.0 H Lymphocytes % (Manual) 2.0 L Seg Neutrophils # Seg Neutrophils # Man 9.4 H Basophils % (Manual) Nucleated RBC % Lymphocytes # (Manual) 0.2 L Monocytes # (Manual) Basophils # (Manual) PT INR Heparin Anti-Xa Level POC ABG pO2 ABG pH ABG Hemoglobin ABG Oxyhemoglobin ABG pO2 ABG HCO3 ABG O2 Saturation ABG Base Excess ABG Sodium ABG Potassium ABG Chloride ABG Glucose Oxyhemoglobin Sodium Potassium Chloride Carbon Dioxide BUN Creatinine Glucose POC Glucose 175 H 220 H Lactic Acid Calcium AST Phosphorus Total Protein Albumin C-Reactive Protein Arterial Blood Glucose Arterial Blood Ionized Calcium Urine WBC (Auto) Crossmatch 01/31/20 01/31/20 01/31/20 12:40 14:40 18:18 WBC RBC Hgb Hct MCHC RDW Plt Count MCH Lymph % (Auto) Lymph # Lymph # (Auto) Seg Neutrophils % Seg Neuts % (Manual) Lymphocytes % (Manual) Seg Neutrophils # Seg Neutrophils # Man Basophils % (Manual) Nucleated RBC % Lymphocytes # (Manual) Monocytes # (Manual) Basophils # (Manual) PT INR Heparin Anti-Xa Level POC ABG pO2 124.7 H ABG pH 7.542 H ABG Hemoglobin 7.8 L ABG Oxyhemoglobin ABG pO2 ABG HCO3 ABG O2 Saturation ABG Base Excess ABG Sodium ABG Potassium ABG Chloride ABG Glucose Oxyhemoglobin Sodium 151 H Potassium 2.1 L* D Chloride 108.9 H Carbon Dioxide BUN 22 H Creatinine Glucose 194 H POC Glucose 181 H Lactic Acid Calcium 8.1 L AST Phosphorus Total Protein 4.8 L Albumin 2.3 L C-Reactive Protein Arterial Blood Glucose Arterial Blood Ionized Calcium Urine WBC (Auto) Crossmatch 02/01/20 02/01/20 02/01/20 00:11 03:14 04:32 WBC 11.9 H RBC 2.47 L Hgb 7.6 L Hct 22.8 L MCHC RDW 22.7 H Plt Count MCH Lymph % (Auto) Lymph # Lymph # (Auto) Seg Neutrophils % Seg Neuts % (Manual) 90.0 H Lymphocytes % (Manual) 5.0 L Seg Neutrophils # Seg Neutrophils # Man 10.7 H Basophils % (Manual) Nucleated RBC % Lymphocytes # (Manual) 0.6 L Monocytes # (Manual) Basophils # (Manual) PT INR Heparin Anti-Xa Level POC ABG pO2 ABG pH 7.564 H ABG Hemoglobin 7.6 L ABG Oxyhemoglobin ABG pO2 124.1 H ABG HCO3 29.6 H ABG O2 Saturation ABG Base Excess 7.0 H ABG Sodium ABG Potassium ABG Chloride ABG Glucose Oxyhemoglobin Sodium Potassium Chloride Carbon Dioxide BUN Creatinine Glucose POC Glucose 190 H Lactic Acid Calcium AST Phosphorus Total Protein Albumin C-Reactive Protein Arterial Blood Glucose Arterial Blood Ionized Calcium Urine WBC (Auto) Crossmatch 02/01/20 02/01/20 02/01/20 04:32 05:28 11:56 WBC RBC Hgb Hct MCHC RDW Plt Count MCH Lymph % (Auto) Lymph # Lymph # (Auto) Seg Neutrophils % Seg Neuts % (Manual) Lymphocytes % (Manual) Seg Neutrophils # Seg Neutrophils # Man Basophils % (Manual) Nucleated RBC % Lymphocytes # (Manual) Monocytes # (Manual) Basophils # (Manual) PT INR Heparin Anti-Xa Level POC ABG pO2 ABG pH ABG Hemoglobin ABG Oxyhemoglobin ABG pO2 ABG HCO3 ABG O2 Saturation ABG Base Excess ABG Sodium ABG Potassium ABG Chloride ABG Glucose Oxyhemoglobin Sodium 149 H Potassium 2.6 L* D Chloride Carbon Dioxide 33 H BUN 23 H Creatinine 0.5 L Glucose 174 H POC Glucose 187 H 195 H Lactic Acid Calcium 8.0 L AST Phosphorus 1.60 L Total Protein Albumin C-Reactive Protein Arterial Blood Glucose Arterial Blood Ionized Calcium Urine WBC (Auto) Crossmatch 02/01/20 02/01/20 02/02/20 18:15 23:35 04:33 WBC RBC Hgb Hct MCHC RDW Plt Count MCH Lymph % (Auto) Lymph # Lymph # (Auto) Seg Neutrophils % Seg Neuts % (Manual) Lymphocytes % (Manual) Seg Neutrophils # Seg Neutrophils # Man Basophils % (Manual) Nucleated RBC % Lymphocytes # (Manual) Monocytes # (Manual) Basophils # (Manual) PT INR Heparin Anti-Xa Level POC ABG pO2 ABG pH 7.549 H ABG Hemoglobin 9.8 L ABG Oxyhemoglobin ABG pO2 ABG HCO3 ABG O2 Saturation ABG Base Excess ABG Sodium ABG Potassium ABG Chloride ABG Glucose Oxyhemoglobin Sodium Potassium Chloride Carbon Dioxide BUN Creatinine Glucose POC Glucose 226 H 252 H Lactic Acid Calcium AST Phosphorus Total Protein Albumin C-Reactive Protein Arterial Blood Glucose Arterial Blood Ionized Calcium Urine WBC (Auto) Crossmatch 02/02/20 02/02/20 02/02/20 05:25 05:25 05:40 WBC 15.5 H RBC 2.43 L Hgb 7.6 L Hct 22.9 L MCHC RDW 23.6 H Plt Count MCH Lymph % (Auto) Lymph # Lymph # (Auto) Seg Neutrophils % Seg Neuts % (Manual) 89.0 H Lymphocytes % (Manual) 3.0 L Seg Neutrophils # Seg Neutrophils # Man 13.8 H Basophils % (Manual) Nucleated RBC % Lymphocytes # (Manual) 0.5 L Monocytes # (Manual) 0.9 H Basophils # (Manual) PT INR Heparin Anti-Xa Level POC ABG pO2 ABG pH ABG Hemoglobin ABG Oxyhemoglobin ABG pO2 ABG HCO3 ABG O2 Saturation ABG Base Excess ABG Sodium ABG Potassium ABG Chloride ABG Glucose Oxyhemoglobin Sodium Potassium 2.6 L* Chloride Carbon Dioxide 33 H BUN 26 H Creatinine Glucose 175 H POC Glucose 181 H Lactic Acid Calcium 7.9 L AST Phosphorus Total Protein Albumin C-Reactive Protein Arterial Blood Glucose Arterial Blood Ionized Calcium Urine WBC (Auto) Crossmatch 02/02/20 02/02/20 02/02/20 11:55 14:45 17:18 WBC RBC Hgb Hct MCHC RDW Plt Count MCH Lymph % (Auto) Lymph # Lymph # (Auto) Seg Neutrophils % Seg Neuts % (Manual) Lymphocytes % (Manual) Seg Neutrophils # Seg Neutrophils # Man Basophils % (Manual) Nucleated RBC % Lymphocytes # (Manual) Monocytes # (Manual) Basophils # (Manual) PT INR Heparin Anti-Xa Level POC ABG pO2 ABG pH 7.56 H ABG Hemoglobin 7.6 L ABG Oxyhemoglobin ABG pO2 ABG HCO3 ABG O2 Saturation ABG Base Excess ABG Sodium ABG Potassium ABG Chloride ABG Glucose Oxyhemoglobin Sodium Potassium Chloride Carbon Dioxide BUN Creatinine Glucose POC Glucose 226 H 227 H Lactic Acid Calcium AST Phosphorus Total Protein Albumin C-Reactive Protein Arterial Blood Glucose Arterial Blood Ionized Calcium Urine WBC (Auto) Crossmatch 02/02/20 02/03/20 02/03/20 20:54 00:02 05:14 WBC 18.7 H RBC 2.45 L Hgb 7.6 L Hct 23.2 L MCHC RDW 23.5 H Plt Count MCH Lymph % (Auto) Lymph # Lymph # (Auto) Seg Neutrophils % Seg Neuts % (Manual) 94.0 H Lymphocytes % (Manual) 3.0 L Seg Neutrophils # Seg Neutrophils # Man 17.6 H Basophils % (Manual) Nucleated RBC % Lymphocytes # (Manual) 0.6 L Monocytes # (Manual) Basophils # (Manual) PT INR Heparin Anti-Xa Level POC ABG pO2 ABG pH ABG Hemoglobin ABG Oxyhemoglobin ABG pO2 ABG HCO3 ABG O2 Saturation ABG Base Excess ABG Sodium ABG Potassium ABG Chloride ABG Glucose Oxyhemoglobin Sodium Potassium 3.2 L D Chloride Carbon Dioxide BUN Creatinine Glucose POC Glucose 204 H Lactic Acid Calcium AST Phosphorus Total Protein Albumin C-Reactive Protein Arterial Blood Glucose Arterial Blood Ionized Calcium Urine WBC (Auto) Crossmatch 02/03/20 02/03/20 02/03/20 05:14 05:14 05:20 WBC RBC Hgb Hct MCHC RDW Plt Count MCH Lymph % (Auto) Lymph # Lymph # (Auto) Seg Neutrophils % Seg Neuts % (Manual) Lymphocytes % (Manual) Seg Neutrophils # Seg Neutrophils # Man Basophils % (Manual) Nucleated RBC % Lymphocytes # (Manual) Monocytes # (Manual) Basophils # (Manual) PT INR Heparin Anti-Xa Level POC ABG pO2 ABG pH ABG Hemoglobin ABG Oxyhemoglobin ABG pO2 ABG HCO3 ABG O2 Saturation ABG Base Excess ABG Sodium ABG Potassium ABG Chloride ABG Glucose Oxyhemoglobin Sodium Potassium 3.1 L Chloride Carbon Dioxide 33 H BUN 29 H Creatinine 0.5 L Glucose 160 H POC Glucose 146 H Lactic Acid Calcium 7.9 L AST Phosphorus 2.30 L Total Protein 4.8 L Albumin 2.4 L C-Reactive Protein Arterial Blood Glucose Arterial Blood Ionized Calcium Urine WBC (Auto) Crossmatch 02/03/20 02/03/20 02/03/20 12:35 18:14 23:26 WBC RBC Hgb Hct MCHC RDW Plt Count MCH Lymph % (Auto) Lymph # Lymph # (Auto) Seg Neutrophils % Seg Neuts % (Manual) Lymphocytes % (Manual) Seg Neutrophils # Seg Neutrophils # Man Basophils % (Manual) Nucleated RBC % Lymphocytes # (Manual) Monocytes # (Manual) Basophils # (Manual) PT INR Heparin Anti-Xa Level POC ABG pO2 ABG pH ABG Hemoglobin ABG Oxyhemoglobin ABG pO2 ABG HCO3 ABG O2 Saturation ABG Base Excess ABG Sodium ABG Potassium ABG Chloride ABG Glucose Oxyhemoglobin Sodium Potassium Chloride Carbon Dioxide BUN Creatinine Glucose POC Glucose 219 H 248 H 173 H Lactic Acid Calcium AST Phosphorus Total Protein Albumin C-Reactive Protein Arterial Blood Glucose Arterial Blood Ionized Calcium Urine WBC (Auto) Crossmatch 02/04/20 02/04/20 02/04/20 05:34 05:36 06:51 WBC RBC Hgb Hct MCHC RDW Plt Count MCH Lymph % (Auto) Lymph # Lymph # (Auto) Seg Neutrophils % Seg Neuts % (Manual) Lymphocytes % (Manual) Seg Neutrophils # Seg Neutrophils # Man Basophils % (Manual) Nucleated RBC % Lymphocytes # (Manual) Monocytes # (Manual) Basophils # (Manual) PT INR Heparin Anti-Xa Level POC ABG pO2 ABG pH ABG Hemoglobin ABG Oxyhemoglobin ABG pO2 ABG HCO3 ABG O2 Saturation ABG Base Excess ABG Sodium ABG Potassium ABG Chloride ABG Glucose Oxyhemoglobin Sodium Potassium Chloride Carbon Dioxide BUN Creatinine Glucose POC Glucose 56 L 64 L 127 H Lactic Acid Calcium AST Phosphorus Total Protein Albumin C-Reactive Protein Arterial Blood Glucose Arterial Blood Ionized Calcium Urine WBC (Auto) Crossmatch 02/04/20 02/04/20 02/04/20 11:57 13:42 13:53 WBC 19.2 H RBC 2.48 L Hgb 7.8 L Hct 23.5 L MCHC RDW 24.2 H Plt Count MCH Lymph % (Auto) Lymph # Lymph # (Auto) Seg Neutrophils % Seg Neuts % (Manual) 97.0 H Lymphocytes % (Manual) 2.0 L Seg Neutrophils # Seg Neutrophils # Man 18.6 H Basophils % (Manual) Nucleated RBC % Lymphocytes # (Manual) 0.4 L Monocytes # (Manual) Basophils # (Manual) PT INR Heparin Anti-Xa Level POC ABG pO2 118.2 H ABG pH 7.525 H ABG Hemoglobin 8.7 L ABG Oxyhemoglobin ABG pO2 ABG HCO3 ABG O2 Saturation ABG Base Excess ABG Sodium ABG Potassium 2.8 L ABG Chloride ABG Glucose 185 H Oxyhemoglobin Sodium Potassium Chloride Carbon Dioxide BUN Creatinine Glucose POC Glucose 224 H Lactic Acid Calcium AST Phosphorus Total Protein Albumin C-Reactive Protein Arterial Blood Glucose 185 H Arterial Blood Ionized Calcium 4.5 L Urine WBC (Auto) Crossmatch 02/04/20 02/04/20 02/04/20 13:53 18:15 23:35 WBC RBC Hgb Hct MCHC RDW Plt Count MCH Lymph % (Auto) Lymph # Lymph # (Auto) Seg Neutrophils % Seg Neuts % (Manual) Lymphocytes % (Manual) Seg Neutrophils # Seg Neutrophils # Man Basophils % (Manual) Nucleated RBC % Lymphocytes # (Manual) Monocytes # (Manual) Basophils # (Manual) PT INR Heparin Anti-Xa Level POC ABG pO2 ABG pH ABG Hemoglobin ABG Oxyhemoglobin ABG pO2 ABG HCO3 ABG O2 Saturation ABG Base Excess ABG Sodium ABG Potassium ABG Chloride ABG Glucose Oxyhemoglobin Sodium 147 H Potassium 2.8 L* Chloride Carbon Dioxide 38 H BUN 33 H Creatinine 0.5 L Glucose 202 H POC Glucose 215 H 197 H Lactic Acid Calcium AST Phosphorus Total Protein Albumin C-Reactive Protein Arterial Blood Glucose Arterial Blood Ionized Calcium Urine WBC (Auto) Crossmatch 02/05/20 02/05/20 02/05/20 01:03 04:00 04:00 WBC 26.7 H RBC 2.59 L Hgb 8.1 L Hct 24.6 L MCHC RDW 24.1 H Plt Count MCH Lymph % (Auto) 1.6 L Lymph # Lymph # (Auto) 0.4 L Seg Neutrophils % Seg Neuts % (Manual) Lymphocytes % (Manual) Seg Neutrophils # 25.9 H Seg Neutrophils # Man Basophils % (Manual) Nucleated RBC % Lymphocytes # (Manual) Monocytes # (Manual) Basophils # (Manual) PT INR Heparin Anti-Xa Level POC ABG pO2 ABG pH ABG Hemoglobin 7.1 L ABG Oxyhemoglobin ABG pO2 50.7 L ABG HCO3 29.6 H ABG O2 Saturation 82.7 L ABG Base Excess 4.8 H ABG Sodium ABG Potassium ABG Chloride ABG Glucose Oxyhemoglobin 81.0 L Sodium 146 H Potassium Chloride Carbon Dioxide 32 H BUN 35 H Creatinine 0.5 L Glucose 226 H POC Glucose Lactic Acid Calcium AST Phosphorus Total Protein 5.1 L Albumin 2.2 L C-Reactive Protein Arterial Blood Glucose Arterial Blood Ionized Calcium Urine WBC (Auto) Crossmatch 02/05/20 02/05/20 02/06/20 05:32 17:56 00:19 WBC RBC Hgb Hct MCHC RDW Plt Count MCH Lymph % (Auto) Lymph # Lymph # (Auto) Seg Neutrophils % Seg Neuts % (Manual) Lymphocytes % (Manual) Seg Neutrophils # Seg Neutrophils # Man Basophils % (Manual) Nucleated RBC % Lymphocytes # (Manual) Monocytes # (Manual) Basophils # (Manual) PT INR Heparin Anti-Xa Level POC ABG pO2 ABG pH ABG Hemoglobin ABG Oxyhemoglobin ABG pO2 ABG HCO3 ABG O2 Saturation ABG Base Excess ABG Sodium ABG Potassium ABG Chloride ABG Glucose Oxyhemoglobin Sodium Potassium Chloride Carbon Dioxide BUN Creatinine Glucose POC Glucose 239 H 175 H 309 H Lactic Acid Calcium AST Phosphorus Total Protein Albumin C-Reactive Protein Arterial Blood Glucose Arterial Blood Ionized Calcium Urine WBC (Auto) Crossmatch 02/06/20 02/06/20 02/06/20 04:26 04:27 05:11 WBC RBC Hgb Hct MCHC RDW Plt Count MCH Lymph % (Auto) Lymph # Lymph # (Auto) Seg Neutrophils % Seg Neuts % (Manual) Lymphocytes % (Manual) Seg Neutrophils # Seg Neutrophils # Man Basophils % (Manual) Nucleated RBC % Lymphocytes # (Manual) Monocytes # (Manual) Basophils # (Manual) PT INR Heparin Anti-Xa Level POC ABG pO2 175.3 H 157.2 H ABG pH 7.502 H 7.551 H ABG Hemoglobin 10.8 L 7.3 L ABG Oxyhemoglobin 98.3 H ABG pO2 ABG HCO3 ABG O2 Saturation ABG Base Excess ABG Sodium ABG Potassium 3.3 L ABG Chloride 109.0 H ABG Glucose 148 H Oxyhemoglobin Sodium 148 H Potassium 3.0 L Chloride 107.3 H Carbon Dioxide 33 H BUN 33 H Creatinine 0.5 L Glucose 283 H POC Glucose Lactic Acid Calcium 7.9 L AST Phosphorus Total Protein 3.6 L D Albumin 1.2 L C-Reactive Protein Arterial Blood Glucose 148 H Arterial Blood Ionized Calcium Urine WBC (Auto) Crossmatch 02/06/20 02/06/20 02/06/20 05:40 08:45 11:52 WBC 16.3 H RBC 2.12 L Hgb 6.6 L Hct 20.3 L MCHC RDW 24.4 H Plt Count MCH Lymph % (Auto) Lymph # Lymph # (Auto) Seg Neutrophils % Seg Neuts % (Manual) 98.0 H Lymphocytes % (Manual) 1.0 L Seg Neutrophils # Seg Neutrophils # Man 16.0 H Basophils % (Manual) Nucleated RBC % Lymphocytes # (Manual) 0.2 L Monocytes # (Manual) Basophils # (Manual) PT INR Heparin Anti-Xa Level POC ABG pO2 ABG pH ABG Hemoglobin ABG Oxyhemoglobin ABG pO2 ABG HCO3 ABG O2 Saturation ABG Base Excess ABG Sodium ABG Potassium ABG Chloride ABG Glucose Oxyhemoglobin Sodium Potassium Chloride Carbon Dioxide BUN Creatinine Glucose POC Glucose 347 H 132 H Lactic Acid Calcium AST Phosphorus Total Protein Albumin C-Reactive Protein Arterial Blood Glucose Arterial Blood Ionized Calcium Urine WBC (Auto) Crossmatch 02/06/20 02/07/20 02/07/20 18:26 00:08 05:41 WBC RBC Hgb Hct MCHC RDW Plt Count MCH Lymph % (Auto) Lymph # Lymph # (Auto) Seg Neutrophils % Seg Neuts % (Manual) Lymphocytes % (Manual) Seg Neutrophils # Seg Neutrophils # Man Basophils % (Manual) Nucleated RBC % Lymphocytes # (Manual) Monocytes # (Manual) Basophils # (Manual) PT INR Heparin Anti-Xa Level POC ABG pO2 ABG pH ABG Hemoglobin ABG Oxyhemoglobin ABG pO2 ABG HCO3 ABG O2 Saturation ABG Base Excess ABG Sodium ABG Potassium ABG Chloride ABG Glucose Oxyhemoglobin Sodium Potassium Chloride Carbon Dioxide BUN Creatinine Glucose POC Glucose 114 H 111 H 164 H Lactic Acid Calcium AST Phosphorus Total Protein Albumin C-Reactive Protein Arterial Blood Glucose Arterial Blood Ionized Calcium Urine WBC (Auto) Crossmatch 02/07/20 02/07/20 02/07/20 11:49 17:56 23:27 WBC RBC Hgb Hct MCHC RDW Plt Count MCH Lymph % (Auto) Lymph # Lymph # (Auto) Seg Neutrophils % Seg Neuts % (Manual) Lymphocytes % (Manual) Seg Neutrophils # Seg Neutrophils # Man Basophils % (Manual) Nucleated RBC % Lymphocytes # (Manual) Monocytes # (Manual) Basophils # (Manual) PT INR Heparin Anti-Xa Level POC ABG pO2 ABG pH ABG Hemoglobin ABG Oxyhemoglobin ABG pO2 ABG HCO3 ABG O2 Saturation ABG Base Excess ABG Sodium ABG Potassium ABG Chloride ABG Glucose Oxyhemoglobin Sodium Potassium Chloride Carbon Dioxide BUN Creatinine Glucose POC Glucose 146 H 140 H 164 H Lactic Acid Calcium AST Phosphorus Total Protein Albumin C-Reactive Protein Arterial Blood Glucose Arterial Blood Ionized Calcium Urine WBC (Auto) Crossmatch 02/08/20 02/08/20 02/08/20 03:55 04:46 04:46 WBC RBC 2.30 L Hgb 7.3 L Hct 22.0 L MCHC RDW 23.9 H Plt Count MCH Lymph % (Auto) 8.5 L Lymph # Lymph # (Auto) 0.8 L Seg Neutrophils % 87.6 H Seg Neuts % (Manual) Lymphocytes % (Manual) Seg Neutrophils # 8.7 H Seg Neutrophils # Man Basophils % (Manual) Nucleated RBC % Lymphocytes # (Manual) Monocytes # (Manual) Basophils # (Manual) PT INR Heparin Anti-Xa Level POC ABG pO2 112.8 H ABG pH 7.511 H ABG Hemoglobin 7.8 L ABG Oxyhemoglobin ABG pO2 ABG HCO3 ABG O2 Saturation ABG Base Excess ABG Sodium ABG Potassium 2.9 L ABG Chloride ABG Glucose 112 H Oxyhemoglobin Sodium Potassium 3.1 L Chloride Carbon Dioxide 31 H BUN 29 H Creatinine 0.3 L Glucose 108 H POC Glucose Lactic Acid Calcium AST Phosphorus Total Protein Albumin C-Reactive Protein Arterial Blood Glucose 112 H Arterial Blood Ionized Calcium Urine WBC (Auto) Crossmatch 02/08/20 02/08/20 02/08/20 05:31 10:15 12:10 WBC RBC Hgb Hct MCHC RDW Plt Count MCH Lymph % (Auto) Lymph # Lymph # (Auto) Seg Neutrophils % Seg Neuts % (Manual) Lymphocytes % (Manual) Seg Neutrophils # Seg Neutrophils # Man Basophils % (Manual) Nucleated RBC % Lymphocytes # (Manual) Monocytes # (Manual) Basophils # (Manual) PT INR Heparin Anti-Xa Level POC ABG pO2 ABG pH ABG Hemoglobin ABG Oxyhemoglobin ABG pO2 ABG HCO3 ABG O2 Saturation ABG Base Excess ABG Sodium ABG Potassium ABG Chloride ABG Glucose Oxyhemoglobin Sodium Potassium Chloride Carbon Dioxide BUN Creatinine Glucose POC Glucose 117 H 164 H 170 H Lactic Acid Calcium AST Phosphorus Total Protein Albumin C-Reactive Protein Arterial Blood Glucose Arterial Blood Ionized Calcium Urine WBC (Auto) Crossmatch 10/04/20 10/04/20 10/05/20 12:23 23:50 03:04 WBC RBC Hgb Hct MCHC RDW Plt Count MCH Lymph % (Auto) Lymph # Lymph # (Auto) Seg Neutrophils % Seg Neuts % (Manual) Lymphocytes % (Manual) Seg Neutrophils # Seg Neutrophils # Man Basophils % (Manual) Nucleated RBC % Lymphocytes # (Manual) Monocytes # (Manual) Basophils # (Manual) PT INR Heparin Anti-Xa Level POC ABG pO2 ABG pH 7.501 H ABG Hemoglobin 7.5 L ABG Oxyhemoglobin ABG pO2 ABG HCO3 ABG O2 Saturation ABG Base Excess ABG Sodium ABG Potassium ABG Chloride ABG Glucose 143 H Oxyhemoglobin Sodium Potassium Chloride Carbon Dioxide BUN Creatinine Glucose POC Glucose 164 H 126 H Lactic Acid Calcium AST Phosphorus Total Protein Albumin C-Reactive Protein Arterial Blood Glucose 143 H Arterial Blood Ionized Calcium Urine WBC (Auto) Crossmatch 02/09/20 02/09/20 02/09/20 05:57 08:00 12:39 WBC RBC Hgb Hct MCHC RDW Plt Count MCH Lymph % (Auto) Lymph # Lymph # (Auto) Seg Neutrophils % Seg Neuts % (Manual) Lymphocytes % (Manual) Seg Neutrophils # Seg Neutrophils # Man Basophils % (Manual) Nucleated RBC % Lymphocytes # (Manual) Monocytes # (Manual) Basophils # (Manual) PT INR Heparin Anti-Xa Level POC ABG pO2 ABG pH ABG Hemoglobin ABG Oxyhemoglobin ABG pO2 ABG HCO3 ABG O2 Saturation ABG Base Excess ABG Sodium ABG Potassium ABG Chloride ABG Glucose Oxyhemoglobin Sodium Potassium 3.3 L Chloride Carbon Dioxide 34 H BUN 27 H Creatinine 0.4 L Glucose 127 H POC Glucose 160 H 154 H Lactic Acid Calcium 8.2 L AST Phosphorus Total Protein Albumin C-Reactive Protein Arterial Blood Glucose Arterial Blood Ionized Calcium Urine WBC (Auto) Crossmatch 02/09/20 02/09/20 02/09/20 18:17 23:43 Unknown WBC RBC 2.15 L Hgb 7.0 L Hct 20.8 L MCHC RDW 23.3 H Plt Count MCH 33 H Lymph % (Auto) Lymph # Lymph # (Auto) Seg Neutrophils % Seg Neuts % (Manual) Lymphocytes % (Manual) Seg Neutrophils # Seg Neutrophils # Man Basophils % (Manual) Nucleated RBC % Lymphocytes # (Manual) Monocytes # (Manual) Basophils # (Manual) PT INR Heparin Anti-Xa Level POC ABG pO2 ABG pH ABG Hemoglobin ABG Oxyhemoglobin ABG pO2 ABG HCO3 ABG O2 Saturation ABG Base Excess ABG Sodium ABG Potassium ABG Chloride ABG Glucose Oxyhemoglobin Sodium Potassium Chloride Carbon Dioxide BUN Creatinine Glucose POC Glucose 152 H 177 H Lactic Acid Calcium AST Phosphorus Total Protein Albumin C-Reactive Protein Arterial Blood Glucose Arterial Blood Ionized Calcium Urine WBC (Auto) Crossmatch 02/10/20 02/10/20 02/10/20 04:38 05:24 11:44 WBC RBC Hgb Hct MCHC RDW Plt Count MCH Lymph % (Auto) Lymph # Lymph # (Auto) Seg Neutrophils % Seg Neuts % (Manual) Lymphocytes % (Manual) Seg Neutrophils # Seg Neutrophils # Man Basophils % (Manual) Nucleated RBC % Lymphocytes # (Manual) Monocytes # (Manual) Basophils # (Manual) PT INR Heparin Anti-Xa Level POC ABG pO2 ABG pH 7.502 H ABG Hemoglobin 6.2 L ABG Oxyhemoglobin ABG pO2 136.0 H ABG HCO3 29.3 H ABG O2 Saturation ABG Base Excess 5.7 H ABG Sodium ABG Potassium ABG Chloride ABG Glucose Oxyhemoglobin Sodium Potassium Chloride Carbon Dioxide BUN Creatinine Glucose POC Glucose 113 H 176 H Lactic Acid Calcium AST Phosphorus Total Protein Albumin C-Reactive Protein Arterial Blood Glucose Arterial Blood Ionized Calcium Urine WBC (Auto) Crossmatch 02/10/20 02/11/20 02/11/20 23:42 03:43 04:12 WBC RBC 2.12 L Hgb 6.9 L Hct 20.6 L MCHC RDW 23.4 H Plt Count MCH 33 H Lymph % (Auto) Lymph # Lymph # (Auto) Seg Neutrophils % 84.7 H Seg Neuts % (Manual) 83.0 H Lymphocytes % (Manual) 11.0 L Seg Neutrophils # Seg Neutrophils # Man Basophils % (Manual) Nucleated RBC % Lymphocytes # (Manual) 1.0 L Monocytes # (Manual) Basophils # (Manual) PT INR Heparin Anti-Xa Level POC ABG pO2 112.6 H ABG pH 7.480 H ABG Hemoglobin 7.2 L ABG Oxyhemoglobin ABG pO2 ABG HCO3 ABG O2 Saturation ABG Base Excess ABG Sodium ABG Potassium ABG Chloride ABG Glucose 154 H Oxyhemoglobin Sodium Potassium Chloride Carbon Dioxide BUN Creatinine Glucose POC Glucose 149 H Lactic Acid Calcium AST Phosphorus Total Protein Albumin C-Reactive Protein Arterial Blood Glucose 154 H Arterial Blood Ionized Calcium Urine WBC (Auto) Crossmatch 02/11/20 02/11/20 02/11/20 04:12 05:50 08:22 WBC RBC Hgb Hct MCHC RDW Plt Count MCH Lymph % (Auto) Lymph # Lymph # (Auto) Seg Neutrophils % Seg Neuts % (Manual) Lymphocytes % (Manual) Seg Neutrophils # Seg Neutrophils # Man Basophils % (Manual) Nucleated RBC % Lymphocytes # (Manual) Monocytes # (Manual) Basophils # (Manual) PT INR Heparin Anti-Xa Level POC ABG pO2 ABG pH ABG Hemoglobin ABG Oxyhemoglobin ABG pO2 ABG HCO3 ABG O2 Saturation ABG Base Excess ABG Sodium ABG Potassium ABG Chloride ABG Glucose Oxyhemoglobin Sodium 146 H Potassium Chloride Carbon Dioxide BUN 24 H Creatinine 0.4 L Glucose 168 H POC Glucose 190 H Lactic Acid Calcium 8.0 L AST Phosphorus Total Protein Albumin C-Reactive Protein Arterial Blood Glucose Arterial Blood Ionized Calcium Urine WBC (Auto) Crossmatch See Detail 02/11/20 02/11/20 02/11/20 11:41 17:33 23:40 WBC RBC Hgb Hct MCHC RDW Plt Count MCH Lymph % (Auto) Lymph # Lymph # (Auto) Seg Neutrophils % Seg Neuts % (Manual) Lymphocytes % (Manual) Seg Neutrophils # Seg Neutrophils # Man Basophils % (Manual) Nucleated RBC % Lymphocytes # (Manual) Monocytes # (Manual) Basophils # (Manual) PT INR Heparin Anti-Xa Level POC ABG pO2 ABG pH ABG Hemoglobin ABG Oxyhemoglobin ABG pO2 ABG HCO3 ABG O2 Saturation ABG Base Excess ABG Sodium ABG Potassium ABG Chloride ABG Glucose Oxyhemoglobin Sodium Potassium Chloride Carbon Dioxide BUN Creatinine Glucose POC Glucose 260 H 132 H 54 L Lactic Acid Calcium AST Phosphorus Total Protein Albumin C-Reactive Protein Arterial Blood Glucose Arterial Blood Ionized Calcium Urine WBC (Auto) Crossmatch 02/12/20 02/12/20 02/12/20 05:16 06:45 11:48 WBC RBC Hgb 8.6 L Hct 25.2 L MCHC RDW Plt Count MCH Lymph % (Auto) Lymph # Lymph # (Auto) Seg Neutrophils % Seg Neuts % (Manual) Lymphocytes % (Manual) Seg Neutrophils # Seg Neutrophils # Man Basophils % (Manual) Nucleated RBC % Lymphocytes # (Manual) Monocytes # (Manual) Basophils # (Manual) PT INR Heparin Anti-Xa Level POC ABG pO2 ABG pH ABG Hemoglobin ABG Oxyhemoglobin ABG pO2 ABG HCO3 ABG O2 Saturation ABG Base Excess ABG Sodium ABG Potassium ABG Chloride ABG Glucose Oxyhemoglobin Sodium Potassium Chloride Carbon Dioxide BUN Creatinine Glucose POC Glucose 127 H 163 H Lactic Acid Calcium AST Phosphorus Total Protein Albumin C-Reactive Protein Arterial Blood Glucose Arterial Blood Ionized Calcium Urine WBC (Auto) Crossmatch 02/12/20 02/12/20 02/13/20 17:25 23:53 04:30 WBC RBC Hgb Hct MCHC RDW Plt Count MCH Lymph % (Auto) Lymph # Lymph # (Auto) Seg Neutrophils % Seg Neuts % (Manual) Lymphocytes % (Manual) Seg Neutrophils # Seg Neutrophils # Man Basophils % (Manual) Nucleated RBC % Lymphocytes # (Manual) Monocytes # (Manual) Basophils # (Manual) PT INR Heparin Anti-Xa Level POC ABG pO2 ABG pH 7.463 H ABG Hemoglobin ABG Oxyhemoglobin ABG pO2 98.4 H ABG HCO3 27.7 H ABG O2 Saturation ABG Base Excess 3.7 H ABG Sodium ABG Potassium ABG Chloride ABG Glucose Oxyhemoglobin Sodium Potassium Chloride Carbon Dioxide BUN Creatinine Glucose POC Glucose 152 H 140 H Lactic Acid Calcium AST Phosphorus Total Protein Albumin C-Reactive Protein Arterial Blood Glucose Arterial Blood Ionized Calcium Urine WBC (Auto) Crossmatch 02/13/20 02/13/20 02/13/20 04:45 04:45 05:19 WBC RBC 2.73 L Hgb 8.7 L Hct 25.6 L MCHC RDW 21.3 H Plt Count MCH Lymph % (Auto) 12.0 L Lymph # Lymph # (Auto) 1.0 L Seg Neutrophils % 82.5 H Seg Neuts % (Manual) Lymphocytes % (Manual) Seg Neutrophils # Seg Neutrophils # Man Basophils % (Manual) Nucleated RBC % Lymphocytes # (Manual) Monocytes # (Manual) Basophils # (Manual) PT INR Heparin Anti-Xa Level POC ABG pO2 ABG pH ABG Hemoglobin ABG Oxyhemoglobin ABG pO2 ABG HCO3 ABG O2 Saturation ABG Base Excess ABG Sodium ABG Potassium ABG Chloride ABG Glucose Oxyhemoglobin Sodium Potassium 3.4 L Chloride Carbon Dioxide 31 H BUN 24 H Creatinine 0.3 L Glucose 122 H POC Glucose 127 H Lactic Acid Calcium 8.0 L AST Phosphorus Total Protein 4.2 L Albumin 2.0 L C-Reactive Protein Arterial Blood Glucose Arterial Blood Ionized Calcium Urine WBC (Auto) Crossmatch 02/13/20 02/14/20 02/14/20 23:08 04:26 04:26 WBC RBC 2.74 L Hgb 8.7 L Hct 25.8 L MCHC RDW 21.3 H Plt Count MCH Lymph % (Auto) 13.2 L Lymph # Lymph # (Auto) Seg Neutrophils % 81.4 H Seg Neuts % (Manual) Lymphocytes % (Manual) Seg Neutrophils # 8.4 H Seg Neutrophils # Man Basophils % (Manual) Nucleated RBC % Lymphocytes # (Manual) Monocytes # (Manual) Basophils # (Manual) PT INR Heparin Anti-Xa Level POC ABG pO2 ABG pH ABG Hemoglobin ABG Oxyhemoglobin ABG pO2 ABG HCO3 ABG O2 Saturation ABG Base Excess ABG Sodium ABG Potassium ABG Chloride ABG Glucose Oxyhemoglobin Sodium Potassium 3.4 L Chloride 107.6 H Carbon Dioxide BUN 20 H Creatinine 0.3 L Glucose 170 H POC Glucose 148 H Lactic Acid Calcium 8.2 L AST Phosphorus Total Protein Albumin C-Reactive Protein Arterial Blood Glucose Arterial Blood Ionized Calcium Urine WBC (Auto) Crossmatch 02/14/20 02/14/20 02/14/20 05:05 12:08 17:37 WBC RBC Hgb Hct MCHC RDW Plt Count MCH Lymph % (Auto) Lymph # Lymph # (Auto) Seg Neutrophils % Seg Neuts % (Manual) Lymphocytes % (Manual) Seg Neutrophils # Seg Neutrophils # Man Basophils % (Manual) Nucleated RBC % Lymphocytes # (Manual) Monocytes # (Manual) Basophils # (Manual) PT INR Heparin Anti-Xa Level POC ABG pO2 ABG pH ABG Hemoglobin ABG Oxyhemoglobin ABG pO2 ABG HCO3 ABG O2 Saturation ABG Base Excess ABG Sodium ABG Potassium ABG Chloride ABG Glucose Oxyhemoglobin Sodium Potassium Chloride Carbon Dioxide BUN Creatinine Glucose POC Glucose 182 H 156 H 144 H Lactic Acid Calcium AST Phosphorus Total Protein Albumin C-Reactive Protein Arterial Blood Glucose Arterial Blood Ionized Calcium Urine WBC (Auto) Crossmatch 02/14/20 02/15/20 02/15/20 23:36 05:44 12:11 WBC RBC Hgb Hct MCHC RDW Plt Count MCH Lymph % (Auto) Lymph # Lymph # (Auto) Seg Neutrophils % Seg Neuts % (Manual) Lymphocytes % (Manual) Seg Neutrophils # Seg Neutrophils # Man Basophils % (Manual) Nucleated RBC % Lymphocytes # (Manual) Monocytes # (Manual) Basophils # (Manual) PT INR Heparin Anti-Xa Level POC ABG pO2 ABG pH ABG Hemoglobin ABG Oxyhemoglobin ABG pO2 ABG HCO3 ABG O2 Saturation ABG Base Excess ABG Sodium ABG Potassium ABG Chloride ABG Glucose Oxyhemoglobin Sodium Potassium Chloride Carbon Dioxide BUN Creatinine Glucose POC Glucose 183 H 203 H 140 H Lactic Acid Calcium AST Phosphorus Total Protein Albumin C-Reactive Protein Arterial Blood Glucose Arterial Blood Ionized Calcium Urine WBC (Auto) Crossmatch 02/15/20 02/16/20 02/16/20 17:23 00:12 05:09 WBC RBC Hgb 8.8 L Hct 26.0 L MCHC RDW Plt Count MCH Lymph % (Auto) Lymph # Lymph # (Auto) Seg Neutrophils % Seg Neuts % (Manual) Lymphocytes % (Manual) Seg Neutrophils # Seg Neutrophils # Man Basophils % (Manual) Nucleated RBC % Lymphocytes # (Manual) Monocytes # (Manual) Basophils # (Manual) PT INR Heparin Anti-Xa Level POC ABG pO2 ABG pH ABG Hemoglobin ABG Oxyhemoglobin ABG pO2 ABG HCO3 ABG O2 Saturation ABG Base Excess ABG Sodium ABG Potassium ABG Chloride ABG Glucose Oxyhemoglobin Sodium Potassium Chloride Carbon Dioxide BUN Creatinine Glucose POC Glucose 170 H 133 H Lactic Acid Calcium AST Phosphorus Total Protein Albumin C-Reactive Protein Arterial Blood Glucose Arterial Blood Ionized Calcium Urine WBC (Auto) Crossmatch 02/16/20 02/16/20 02/16/20 05:09 05:21 12:22 WBC RBC Hgb Hct MCHC RDW Plt Count MCH Lymph % (Auto) Lymph # Lymph # (Auto) Seg Neutrophils % Seg Neuts % (Manual) Lymphocytes % (Manual) Seg Neutrophils # Seg Neutrophils # Man Basophils % (Manual) Nucleated RBC % Lymphocytes # (Manual) Monocytes # (Manual) Basophils # (Manual) PT INR Heparin Anti-Xa Level POC ABG pO2 ABG pH ABG Hemoglobin ABG Oxyhemoglobin ABG pO2 ABG HCO3 ABG O2 Saturation ABG Base Excess ABG Sodium ABG Potassium ABG Chloride ABG Glucose Oxyhemoglobin Sodium Potassium Chloride Carbon Dioxide 31 H BUN 18 H Creatinine 0.3 L Glucose 152 H POC Glucose 160 H 138 H Lactic Acid Calcium 7.9 L AST Phosphorus Total Protein Albumin C-Reactive Protein Arterial Blood Glucose Arterial Blood Ionized Calcium Urine WBC (Auto) Crossmatch 02/16/20 02/17/20 02/17/20 16:35 00:01 05:22 WBC RBC Hgb Hct MCHC RDW Plt Count MCH Lymph % (Auto) Lymph # Lymph # (Auto) Seg Neutrophils % Seg Neuts % (Manual) Lymphocytes % (Manual) Seg Neutrophils # Seg Neutrophils # Man Basophils % (Manual) Nucleated RBC % Lymphocytes # (Manual) Monocytes # (Manual) Basophils # (Manual) PT INR Heparin Anti-Xa Level POC ABG pO2 ABG pH ABG Hemoglobin ABG Oxyhemoglobin ABG pO2 ABG HCO3 ABG O2 Saturation ABG Base Excess ABG Sodium ABG Potassium ABG Chloride ABG Glucose Oxyhemoglobin Sodium Potassium Chloride Carbon Dioxide BUN Creatinine Glucose POC Glucose 142 H 173 H 126 H Lactic Acid Calcium AST Phosphorus Total Protein Albumin C-Reactive Protein Arterial Blood Glucose Arterial Blood Ionized Calcium Urine WBC (Auto) Crossmatch 02/17/20 02/17/20 02/18/20 11:35 18:08 00:15 WBC RBC Hgb Hct MCHC RDW Plt Count MCH Lymph % (Auto) Lymph # Lymph # (Auto) Seg Neutrophils % Seg Neuts % (Manual) Lymphocytes % (Manual) Seg Neutrophils # Seg Neutrophils # Man Basophils % (Manual) Nucleated RBC % Lymphocytes # (Manual) Monocytes # (Manual) Basophils # (Manual) PT INR Heparin Anti-Xa Level POC ABG pO2 ABG pH ABG Hemoglobin ABG Oxyhemoglobin ABG pO2 ABG HCO3 ABG O2 Saturation ABG Base Excess ABG Sodium ABG Potassium ABG Chloride ABG Glucose Oxyhemoglobin Sodium Potassium Chloride Carbon Dioxide BUN Creatinine Glucose POC Glucose 113 H 136 H 160 H Lactic Acid Calcium AST Phosphorus Total Protein Albumin C-Reactive Protein Arterial Blood Glucose Arterial Blood Ionized Calcium Urine WBC (Auto) Crossmatch 02/18/20 02/18/20 02/18/20 04:43 04:43 05:30 WBC RBC 3.24 L Hgb Hct MCHC RDW 20.1 H Plt Count 455 H MCH Lymph % (Auto) Lymph # Lymph # (Auto) Seg Neutrophils % Seg Neuts % (Manual) Lymphocytes % (Manual) Seg Neutrophils # Seg Neutrophils # Man Basophils % (Manual) Nucleated RBC % Lymphocytes # (Manual) Monocytes # (Manual) Basophils # (Manual) PT INR Heparin Anti-Xa Level POC ABG pO2 ABG pH ABG Hemoglobin ABG Oxyhemoglobin ABG pO2 ABG HCO3 ABG O2 Saturation ABG Base Excess ABG Sodium ABG Potassium ABG Chloride ABG Glucose Oxyhemoglobin Sodium Potassium Chloride Carbon Dioxide BUN Creatinine 0.3 L Glucose 118 H POC Glucose 139 H Lactic Acid Calcium AST Phosphorus Total Protein Albumin C-Reactive Protein Arterial Blood Glucose Arterial Blood Ionized Calcium Urine WBC (Auto) Crossmatch 02/18/20 02/18/20 02/19/20 11:55 17:51 00:00 WBC RBC Hgb Hct MCHC RDW Plt Count MCH Lymph % (Auto) Lymph # Lymph # (Auto) Seg Neutrophils % Seg Neuts % (Manual) Lymphocytes % (Manual) Seg Neutrophils # Seg Neutrophils # Man Basophils % (Manual) Nucleated RBC % Lymphocytes # (Manual) Monocytes # (Manual) Basophils # (Manual) PT INR Heparin Anti-Xa Level POC ABG pO2 ABG pH ABG Hemoglobin ABG Oxyhemoglobin ABG pO2 ABG HCO3 ABG O2 Saturation ABG Base Excess ABG Sodium ABG Potassium ABG Chloride ABG Glucose Oxyhemoglobin Sodium Potassium Chloride Carbon Dioxide BUN Creatinine Glucose POC Glucose 165 H 139 H 141 H Lactic Acid Calcium AST Phosphorus Total Protein Albumin C-Reactive Protein Arterial Blood Glucose Arterial Blood Ionized Calcium Urine WBC (Auto) Crossmatch 02/19/20 02/19/20 02/20/20 05:45 12:20 05:36 WBC RBC Hgb Hct MCHC RDW Plt Count MCH Lymph % (Auto) Lymph # Lymph # (Auto) Seg Neutrophils % Seg Neuts % (Manual) Lymphocytes % (Manual) Seg Neutrophils # Seg Neutrophils # Man Basophils % (Manual) Nucleated RBC % Lymphocytes # (Manual) Monocytes # (Manual) Basophils # (Manual) PT INR Heparin Anti-Xa Level POC ABG pO2 ABG pH ABG Hemoglobin ABG Oxyhemoglobin ABG pO2 ABG HCO3 ABG O2 Saturation ABG Base Excess ABG Sodium ABG Potassium ABG Chloride ABG Glucose Oxyhemoglobin Sodium Potassium Chloride Carbon Dioxide BUN Creatinine Glucose POC Glucose 169 H 161 H 159 H Lactic Acid Calcium AST Phosphorus Total Protein Albumin C-Reactive Protein Arterial Blood Glucose Arterial Blood Ionized Calcium Urine WBC (Auto) Crossmatch 02/20/20 02/20/20 02/20/20 08:24 08:24 11:54 WBC RBC 2.74 L Hgb 8.7 L Hct 26.4 L MCHC RDW 19.4 H Plt Count MCH Lymph % (Auto) Lymph # Lymph # (Auto) Seg Neutrophils % Seg Neuts % (Manual) 79.0 H Lymphocytes % (Manual) 12.0 L Seg Neutrophils # Seg Neutrophils # Man Basophils % (Manual) 2.0 H Nucleated RBC % Lymphocytes # (Manual) 1.0 L Monocytes # (Manual) Basophils # (Manual) 0.2 H PT INR Heparin Anti-Xa Level POC ABG pO2 ABG pH ABG Hemoglobin ABG Oxyhemoglobin ABG pO2 ABG HCO3 ABG O2 Saturation ABG Base Excess ABG Sodium ABG Potassium ABG Chloride ABG Glucose Oxyhemoglobin Sodium 134 L Potassium Chloride Carbon Dioxide BUN Creatinine 0.3 L Glucose 136 H POC Glucose 172 H Lactic Acid Calcium 8.0 L AST Phosphorus Total Protein Albumin C-Reactive Protein Arterial Blood Glucose Arterial Blood Ionized Calcium Urine WBC (Auto) Crossmatch 02/20/20 02/21/20 02/21/20 23:59 05:34 12:39 WBC RBC Hgb Hct MCHC RDW Plt Count MCH Lymph % (Auto) Lymph # Lymph # (Auto) Seg Neutrophils % Seg Neuts % (Manual) Lymphocytes % (Manual) Seg Neutrophils # Seg Neutrophils # Man Basophils % (Manual) Nucleated RBC % Lymphocytes # (Manual) Monocytes # (Manual) Basophils # (Manual) PT INR Heparin Anti-Xa Level POC ABG pO2 ABG pH ABG Hemoglobin ABG Oxyhemoglobin ABG pO2 ABG HCO3 ABG O2 Saturation ABG Base Excess ABG Sodium ABG Potassium ABG Chloride ABG Glucose Oxyhemoglobin Sodium Potassium Chloride Carbon Dioxide BUN Creatinine Glucose POC Glucose 117 H 159 H 133 H Lactic Acid Calcium AST Phosphorus Total Protein Albumin C-Reactive Protein Arterial Blood Glucose Arterial Blood Ionized Calcium Urine WBC (Auto) Crossmatch 02/22/20 02/22/20 02/22/20 06:14 11:40 17:57 WBC RBC Hgb Hct MCHC RDW Plt Count MCH Lymph % (Auto) Lymph # Lymph # (Auto) Seg Neutrophils % Seg Neuts % (Manual) Lymphocytes % (Manual) Seg Neutrophils # Seg Neutrophils # Man Basophils % (Manual) Nucleated RBC % Lymphocytes # (Manual) Monocytes # (Manual) Basophils # (Manual) PT INR Heparin Anti-Xa Level POC ABG pO2 ABG pH ABG Hemoglobin ABG Oxyhemoglobin ABG pO2 ABG HCO3 ABG O2 Saturation ABG Base Excess ABG Sodium ABG Potassium ABG Chloride ABG Glucose Oxyhemoglobin Sodium Potassium Chloride Carbon Dioxide BUN Creatinine Glucose POC Glucose 139 H 147 H 131 H Lactic Acid Calcium AST Phosphorus Total Protein Albumin C-Reactive Protein Arterial Blood Glucose Arterial Blood Ionized Calcium Urine WBC (Auto) Crossmatch 02/22/20 02/23/20 02/23/20 23:50 03:16 12:07 WBC RBC Hgb Hct MCHC RDW Plt Count MCH Lymph % (Auto) Lymph # Lymph # (Auto) Seg Neutrophils % Seg Neuts % (Manual) Lymphocytes % (Manual) Seg Neutrophils # Seg Neutrophils # Man Basophils % (Manual) Nucleated RBC % Lymphocytes # (Manual) Monocytes # (Manual) Basophils # (Manual) PT INR Heparin Anti-Xa Level POC ABG pO2 ABG pH ABG Hemoglobin ABG Oxyhemoglobin ABG pO2 ABG HCO3 ABG O2 Saturation ABG Base Excess ABG Sodium ABG Potassium ABG Chloride ABG Glucose Oxyhemoglobin Sodium Potassium Chloride Carbon Dioxide BUN Creatinine Glucose POC Glucose 137 H 115 H 134 H Lactic Acid Calcium AST Phosphorus Total Protein Albumin C-Reactive Protein Arterial Blood Glucose Arterial Blood Ionized Calcium Urine WBC (Auto) Crossmatch 02/23/20 02/23/20 02/24/20 18:29 23:33 04:20 WBC 2.3 L RBC 0.97 L Hgb 3.2 L* Hct 9.2 L* MCHC 35 H RDW 18.6 H Plt Count MCH 33 H Lymph % (Auto) Lymph # Lymph # (Auto) Seg Neutrophils % Seg Neuts % (Manual) Lymphocytes % (Manual) Seg Neutrophils # Seg Neutrophils # Man Basophils % (Manual) Nucleated RBC % Lymphocytes # (Manual) Monocytes # (Manual) Basophils # (Manual) PT INR Heparin Anti-Xa Level POC ABG pO2 ABG pH ABG Hemoglobin ABG Oxyhemoglobin ABG pO2 ABG HCO3 ABG O2 Saturation ABG Base Excess ABG Sodium ABG Potassium ABG Chloride ABG Glucose Oxyhemoglobin Sodium Potassium Chloride Carbon Dioxide BUN Creatinine Glucose POC Glucose 119 H 140 H Lactic Acid Calcium AST Phosphorus Total Protein Albumin C-Reactive Protein Arterial Blood Glucose Arterial Blood Ionized Calcium Urine WBC (Auto) Crossmatch 02/24/20 02/24/20 02/24/20 04:20 06:01 07:02 WBC RBC 2.85 L Hgb 9.1 L D Hct 27.3 L D MCHC RDW 18.8 H Plt Count 538 H D MCH Lymph % (Auto) Lymph # Lymph # (Auto) Seg Neutrophils % Seg Neuts % (Manual) Lymphocytes % (Manual) Seg Neutrophils # Seg Neutrophils # Man Basophils % (Manual) Nucleated RBC % Lymphocytes # (Manual) Monocytes # (Manual) Basophils # (Manual) PT INR Heparin Anti-Xa Level POC ABG pO2 ABG pH ABG Hemoglobin ABG Oxyhemoglobin ABG pO2 ABG HCO3 ABG O2 Saturation ABG Base Excess ABG Sodium ABG Potassium ABG Chloride ABG Glucose Oxyhemoglobin Sodium Potassium Chloride 111.1 H Carbon Dioxide BUN 18 H Creatinine 0.3 L Glucose 115 H POC Glucose 123 H Lactic Acid Calcium 6.6 L D AST Phosphorus Total Protein Albumin C-Reactive Protein Arterial Blood Glucose Arterial Blood Ionized Calcium Urine WBC (Auto) Crossmatch 02/24/20 02/24/20 02/24/20 12:25 13:39 18:22 WBC RBC Hgb Hct MCHC RDW Plt Count MCH Lymph % (Auto) Lymph # Lymph # (Auto) Seg Neutrophils % Seg Neuts % (Manual) Lymphocytes % (Manual) Seg Neutrophils # Seg Neutrophils # Man Basophils % (Manual) Nucleated RBC % Lymphocytes # (Manual) Monocytes # (Manual) Basophils # (Manual) PT INR Heparin Anti-Xa Level POC ABG pO2 ABG pH 7.497 H ABG Hemoglobin 9.9 L ABG Oxyhemoglobin ABG pO2 ABG HCO3 ABG O2 Saturation ABG Base Excess ABG Sodium 135.4 L ABG Potassium ABG Chloride ABG Glucose 133 H Oxyhemoglobin Sodium Potassium Chloride Carbon Dioxide BUN Creatinine Glucose POC Glucose 128 H 128 H Lactic Acid Calcium AST Phosphorus Total Protein Albumin C-Reactive Protein Arterial Blood Glucose 133 H Arterial Blood Ionized Calcium Urine WBC (Auto) Crossmatch 02/25/20 02/25/20 02/25/20 00:01 06:01 12:15 WBC RBC Hgb Hct MCHC RDW Plt Count MCH Lymph % (Auto) Lymph # Lymph # (Auto) Seg Neutrophils % Seg Neuts % (Manual) Lymphocytes % (Manual) Seg Neutrophils # Seg Neutrophils # Man Basophils % (Manual) Nucleated RBC % Lymphocytes # (Manual) Monocytes # (Manual) Basophils # (Manual) PT INR Heparin Anti-Xa Level POC ABG pO2 ABG pH ABG Hemoglobin ABG Oxyhemoglobin ABG pO2 ABG HCO3 ABG O2 Saturation ABG Base Excess ABG Sodium ABG Potassium ABG Chloride ABG Glucose Oxyhemoglobin Sodium Potassium Chloride Carbon Dioxide BUN Creatinine Glucose POC Glucose 131 H 139 H 136 H Lactic Acid Calcium AST Phosphorus Total Protein Albumin C-Reactive Protein Arterial Blood Glucose Arterial Blood Ionized Calcium Urine WBC (Auto) Crossmatch 02/25/20 02/25/20 02/26/20 17:51 20:30 00:13 WBC RBC Hgb Hct MCHC RDW Plt Count MCH Lymph % (Auto) Lymph # Lymph # (Auto) Seg Neutrophils % Seg Neuts % (Manual) Lymphocytes % (Manual) Seg Neutrophils # Seg Neutrophils # Man Basophils % (Manual) Nucleated RBC % Lymphocytes # (Manual) Monocytes # (Manual) Basophils # (Manual) PT INR Heparin Anti-Xa Level POC ABG pO2 ABG pH 7.498 H ABG Hemoglobin 10.7 L ABG Oxyhemoglobin ABG pO2 146.1 H ABG HCO3 ABG O2 Saturation ABG Base Excess ABG Sodium ABG Potassium ABG Chloride ABG Glucose Oxyhemoglobin Sodium Potassium Chloride Carbon Dioxide BUN Creatinine Glucose POC Glucose 115 H 131 H Lactic Acid Calcium AST Phosphorus Total Protein Albumin C-Reactive Protein Arterial Blood Glucose Arterial Blood Ionized Calcium Urine WBC (Auto) Crossmatch 02/26/20 05:30 WBC RBC Hgb Hct MCHC RDW Plt Count MCH Lymph % (Auto) Lymph # Lymph # (Auto) Seg Neutrophils % Seg Neuts % (Manual) Lymphocytes % (Manual) Seg Neutrophils # Seg Neutrophils # Man Basophils % (Manual) Nucleated RBC % Lymphocytes # (Manual) Monocytes # (Manual) Basophils # (Manual) PT INR Heparin Anti-Xa Level POC ABG pO2 ABG pH ABG Hemoglobin ABG Oxyhemoglobin ABG pO2 ABG HCO3 ABG O2 Saturation ABG Base Excess ABG Sodium ABG Potassium ABG Chloride ABG Glucose Oxyhemoglobin Sodium Potassium Chloride Carbon Dioxide BUN Creatinine Glucose POC Glucose 129 H Lactic Acid Calcium AST Phosphorus Total Protein Albumin C-Reactive Protein Arterial Blood Glucose Arterial Blood Ionized Calcium Urine WBC (Auto) Crossmatch Chest x-ray: pending Allied health notes reviewed: nursing
[2020-02-26] MEDS: DONEPEZIL 10 MG TAB PO SCH (21:22)
[2020-02-26] MEDS: traZODone 50 MG TAB PO SCH (21:22)
[2020-02-26] MEDS: MIRTAZAPINE 15 MG TAB PO SCH (21:23)
[2020-02-26] MEDS: ACETAMINOPHEN 325 MG TAB PO PRN (23:54)
[2020-02-27] MEDS: INSULIN REGULAR, HUMAN 100 UNIT/ML 3ML VIAL SUB-Q SCH ×4 (00:20→18:43)
[2020-02-27] MEDS: ACETAMINOPHEN 325 MG TAB PO PRN (04:47)
[2020-02-27] MEDS: PIPERACIL/TAZOBACTA 4.5/NS 100 4.5 GM/100 ML VIAL IV SCH ×3 (05:50→21:43)
--- NOTE | 2020-02-27 08:10 | Progress Note ---
Assessment and Plan Assessment and plan: 69-year-old -[place] female with known history of dementia, and according to the does not talk much due to this. Diabetes mellitus and pulmonary embolism was admitted through the emergency room from the [facility] on 01/07 for decreased responsiveness, lethargy and hypotension. Patient had sepsis UTI and sacral decubitus ulcer evaluated by ID, medications optimized, patient went into acute hypoxic respiratory failure requiring intubation admitted to ICU, extubated, patient sustained cardiac arrest x2, Requiring reintubation, became vent dependent, surgery evaluated underwent trach and PEG, currently patient is awaiting LTAC/SNF placement Patient remains vent dependent, with severe metabolic and hypoxic encephalopathy. Patient has unstageable sacral decubitus ulcer status post debridement Sepsis on long-term antibiotics total 6 weeks per ID, stop date 02/27/2020 --Acute hypoxic respiratory failure; vent dependent s/p tracheostomy,02/13/2020 per surgery, trach care, ventilatory support status post extubation 02/02/2020 but had to be reintubated on 02/04 We will continue current care, pulmonary critical following --Dysphagia s/p PEG placement; continue PEG feeds per protocol --Shock/ septic shock; s/p Levophed,monitor off Levophed --s/p PEA arrest night of 01/28/2020 and 02/05/2020 s/p CPR per ACLS protocol --Anoxic/hypoxic brain injury[status post PEA cardiac arrest]; supportive care Poor prognosis, family aware --Unstageable sacral decubitus ulcer, infected/POA s/p wound debridement on 01/15. Continue wound vac , Proteus bacteremia On zosyn 4.5 g IV q8h total 6 weeks per ID stop date 02/27/2020 --Sepsis /Proteus bacteremia: Due to sacral decubitus Long-term Zosyn per ID stop date 02/27/2020[total 6 weeks] --Hypokalemia /Hypernatremia; resolved --Anemia ; received 1 unit PRBC, now Hb 8.8 -- Diabetes mellitus; Blood sugars well controlled, A1c 5.3 Accu-Chek,SSC, long-acting insulin as needed Tube feeding diet -- Hydropneumothorax, not POA Patient developed hydropneumothorax on 01/15. Surgery evaluated s/p chest tube placed on 01/15. Improved, s/p chest tube removed 01/22, extubated 02/02/2020 Reintubated 02/05/2020 , tracheostomy 02/13/2020 -- large Left pleural effusion 01/25 01/27; s/p bronchoscopy and Therapeutic suctioning of the lungs done by musical performer -- UTI (urinary tract infection)Completed antibiotics --h/o Bilateral pulmonary embolism 7 months ago Repeat CTA chest and LE doppler showed no acute PE or DVT, eliquis stopped -- Dementia: Continue donepezil --Severe protein-calorie malnutrition PEG placed 01/13. PEG feeds per protocol --DVT prophylaxis; SCDs --Disposition; possible LTAC placement Closely monitor the patient and adjust management as needed Plan of care reviewed with the patient and her nurse The high probability of a clinically significant, sudden or life threatening deterioration of the [Respiratory, SOLID WASTE ENGINEER, CVs] system(s) required my full and direct attention, intervention and personal management. The aggregate critical care time was [31] minutes. This time is in addition to time spent performing reported procedures but includes the following: [x] Data Review and interpretation [x] Patient assessment and monitoring of vital signs [x] Documentation [x] Medication orders and management . Patient currently with PSV/CPAP FiO2 50%, PEEP of 6 and pressure support of 10. Continue PSV trials as tolerated and wean per pulmonary. Recall ID consultation. 02/08/2020. Patient with Proteus bacteremia likely from sacral decubitus. Continue Zosyn 4.5 g IV every 8 hours until stop date of 02/26. Patient still on mechanical ventilation AC mode rate 12, tidal volume 350, FiO2 30% and PEEP of 6. Poor prognosis. Consider hospice. Continue scopolamine for secretion control. Continue pressors to maintain MAP > 65; currently off. 02/09/2020. Continue Zosyn 4.5 g IV every 8 hours for Proteus bacteremia with end date of 02/27/2020. Continue wound care/wound VAC per surgery. Patient still on mechanical ventilation AC mode rate 12, tidal volume 350, FiO2 30% and PEEP of 6. Poor prognosis. Consider hospice. Continue scopolamine for secretion control. Currently off pressors. 02/09; evaluated by surgery, planning tracheostomy pending COVID test 02/10; possible tracheostomy today pending COVID test, surgery following 02/11; patient n.p.o. from midnight, possible tracheostomy tomorrow Received 1 unit of PRBC, Hb improved to 8.6 02/12; scheduled for tracheostomy today 02/13; trach care, bilateral upper extremity L edema and swelling, check venous Doppler 02/14; right upper extremity swelling edema, DC the line, elevate the limb 02/15;RUE venous Doppler no DVT, superficial thrombophlebitis, elevate the limb and supportive care 02/16; pending LTAC/SNF placement 02/17; pending LTAC/SNF placement 02/18; trach and PEG, on ventilatory support, awaiting LTAC placement. Sacral decubitus long-term a antibiotics Zosyn stop date 02/27/202002/19: Overnight patient experienced some hypotensive episodes. Was re suscitated with IV fluids. Doppler done over the course of the week showed a superficial right cephalic vein thrombosis. Will obtain intermittent labs this morning my understanding is that we are awaiting placement to LTAC. Patient is status post trach and PEG. 02/20; no significant change overnight, pending LTAC placement. 02/21; patient is still on Zosyn, blood pressure is within normal limit. Pending LTAC placement 02/22; patient's BP is okay. Patient is tachycardic. 02/23; no change. Patient is still on mechanical ventilation 02/24; patient is critically sick, no significant change. Patient is on mechanical ventilation. 02/25; no significant change. Patient is on mechanical ventilation. 02/26; Disposition; Awaiting LTAC/SNF placement. Authorization pending. History Interval history: Patient was seen and evaluated this morning Patient has trach and on mechanical ventilator and CPAP intermittently Hospitalist Physical - Physical exam Narrative exam: Patient has a trach and on mechanical ventilator The patient appeared well nourished and normally developed. Vital signs as documented. Head exam is unremarkable. No scleral icterus . Neck is without jugular venous distension, thyromegaly, or carotid bruits. Lungs are clear to auscultation. Cardiac exam reveals regular rate and Rhythm. Abdominal exam reveals normal bowel sounds, nontender, no organomegaly. Extremities are nonedematous and both femoral and pedal pulses are normal. SOLID WASTE ENGINEER: Patient is aphasic and noncommunicative. Does not follow commands. Extremities are contracted. - Constitutional Vitals: Temp Pulse Resp BP Pulse Ox 99.6 F 79 18 99/48 100 02/27/20 03:21 02/27/20 07:27 02/27/20 06:30 02/27/20 07:27 02/27/20 07:27 General appearance: Present: no acute distress, well-nourished, other (Tracheostomy on vent) Results - Labs CBC & Chem 7: 02/24/20 07:02 02/24/20 04:20 Labs: Laboratory Last Values WBC 6.6 K/mm3 (4.5-11.0) 02/24/20 07:02 RBC 2.85 M/mm3 (3.65-5.03) L 02/24/20 07:02 Hgb 9.1 gm/dl (10.1-14.3) L D 02/24/20 07:02 Hct 27.3 % (30.3-42.9) L D 02/24/20 07:02 MCV 96 fl (79-97) 02/24/20 07:02 MCH 32 pg (28-32) 02/24/20 07:02 MCHC 33 % (30-34) 02/24/20 07:02 RDW 18.8 % (13.2-15.2) H 02/24/20 07:02 Plt Count 538 K/mm3 (140-440) H D 02/24/20 07:02 Lymph % (Auto) 13.2 % (13.4-35.0) L 02/14/20 04:26 [place] % (Auto) 3.6 % (0.0-7.3) 02/14/20 04:26 Eos % (Auto) 1.0 % (0.0-4.3) 02/14/20 04:26 Baso % (Auto) 0.8 % (0.0-1.8) 02/14/20 04:26 Lymph # (Auto) 1.4 K/mm3 (1.2-5.4) 02/14/20 04:26 [place] # (Auto) 0.4 K/mm3 (0.0-0.8) 02/14/20 04:26 Eos # (Auto) 0.1 K/mm3 (0.0-0.4) 02/14/20 04:26 Baso # (Auto) 0.1 K/mm3 (0.0-0.1) 02/14/20 04:26 Add Manual Diff Complete 02/20/20 08:24 Total Counted 100 02/20/20 08:24 Seg Neutrophils % 81.4 % (40.0-70.0) H 02/14/20 04:26 Seg Neuts % (Manual) 79.0 % (40.0-70.0) H 02/20/20 08:24 Band Neutrophils % 0 % 02/20/20 08:24 Lymphocytes % (Manual) 12.0 % (13.4-35.0) L 02/20/20 08:24 Reactive Lymphs % (Man) 0 % 02/20/20 08:24 Monocytes % (Manual) 4.0 % (0.0-7.3) 02/20/20 08:24 Eosinophils % (Manual) 3.0 % (0.0-4.3) 02/20/20 08:24 Basophils % (Manual) 2.0 % (0.0-1.8) H 02/20/20 08:24 Metamyelocytes % 0 % 02/20/20 08:24 Myelocytes % 0 % 02/20/20 08:24 Promyelocytes % 0 % 02/20/20 08:24 Blast Cells % 0 % 02/20/20 08:24 Nucleated RBC % Not Reportable 02/20/20 08:24 Seg Neutrophils # 8.4 K/mm3 (1.8-7.7) H 02/14/20 04:26 Seg Neutrophils # Man 6.5 K/mm3 (1.8-7.7) 02/20/20 08:24 Band Neutrophils # 0.0 K/mm3 02/20/20 08:24 Lymphocytes # (Manual) 1.0 K/mm3 (1.2-5.4) L 02/20/20 08:24 Abs React Lymphs (Man) 0.0 K/mm3 02/20/20 08:24 Monocytes # (Manual) 0.3 K/mm3 (0.0-0.8) 02/20/20 08:24 Eosinophils # (Manual) 0.2 K/mm3 (0.0-0.4) 02/20/20 08:24 Basophils # (Manual) 0.2 K/mm3 (0.0-0.1) H 02/20/20 08:24 Metamyelocytes # 0.0 K/mm3 02/20/20 08:24 Myelocytes # 0.0 K/mm3 02/20/20 08:24 Promyelocytes # 0.0 K/mm3 02/20/20 08:24 Blast Cells # 0.0 K/mm3 02/20/20 08:24 WBC Morphology Not Reportable 02/20/20 08:24 Hypersegmented Neuts Not Reportable 02/20/20 08:24 Hyposegmented Neuts Not Reportable 02/20/20 08:24 Hypogranular Neuts Not Reportable 02/20/20 08:24 Smudge Cells Not Reportable 02/20/20 08:24 Toxic Granulation Not Reportable 02/20/20 08:24 Toxic Vacuolation Not Reportable 02/20/20 08:24 Dohle Bodies Not Reportable 02/20/20 08:24 Pelger-Huet Anomaly Not Reportable 02/20/20 08:24 [place]ata Rods Not Reportable 02/20/20 08:24 Platelet Estimate Consistent w auto 02/20/20 08:24 Clumped Platelets Rare 02/20/20 08:24 Plt Clumps, EDTA Not Reportable 02/20/20 08:24 Large Platelets Few 02/20/20 08:24 Giant Platelets Not Reportable 02/20/20 08:24 Platelet Satelliting Not Reportable 02/20/20 08:24 Plt Morphology Comment Not Reportable 02/20/20 08:24 RBC Morphology Not Reportable 02/20/20 08:24 Dimorphic RBCs Not Reportable 02/20/20 08:24 Polychromasia Not Reportable 02/20/20 08:24 Hypochromasia Not Reportable 02/20/20 08:24 Poikilocytosis Not Reportable 02/20/20 08:24 Anisocytosis 1+ 02/20/20 08:24 Microcytosis Not Reportable 02/20/20 08:24 Macrocytosis 1+ 02/20/20 08:24 Spherocytes Not Reportable 02/20/20 08:24 Pappenheimer Bodies Not Reportable 02/20/20 08:24 Sickle Cells Not Reportable 02/20/20 08:24 Target Cells Not Reportable 02/20/20 08:24 Tear Drop Cells Not Reportable 02/20/20 08:24 Ovalocytes Not Reportable 02/20/20 08:24 Helmet Cells Not Reportable 02/20/20 08:24 [place] Bodies Not Reportable 02/20/20 08:24 [place] Rings Not Reportable 02/20/20 08:24 Leonidas Cells Not Reportable 02/20/20 08:24 Bite Cells Not Reportable 02/20/20 08:24 Crenated Cell Not Reportable 02/20/20 08:24 Elliptocytes Not Reportable 02/20/20 08:24 Acanthocytes (Spur) Not Reportable 02/20/20 08:24 Rouleaux Not Reportable 02/20/20 08:24 Hemoglobin C Crystals Not Reportable 02/20/20 08:24 Schistocytes Not Reportable 02/20/20 08:24 Malaria parasites Not Reportable 02/20/20 08:24 Gideon Bodies Not Reportable 02/20/20 08:24 Hem Pathologist Commnt No 02/20/20 08:24 APTT 33.9 Sec. (24.2-36.6) 01/26/20 16:30 PT 14.4 Sec. (12.2-14.9) 02/02/20 05:25 INR 1.11 (0.87-1.13) 02/02/20 05:25 Heparin Anti-Xa Level 0.74 U.I./ml (0.3-0.7) H 01/28/20 08:50 ABG pH 7.498 pH Units (7.350-7.450) H 02/25/20 20:30 POC ABG pCO2 37.3 mmHg (32.0-48.0) 02/24/20 13:39 ABG pCO2 34.0 mm Hg 02/25/20 20:30 POC ABG pO2 108.0 mmHg (83-108) 02/24/20 13:39 ABG pO2 146.1 mm Hg (80.0-90.0) H 02/25/20 20:30 POC ABG HCO3 28.2 02/24/20 13:39 ABG HCO3 25.7 mmol/L (20.0-26.0) 02/25/20 20:30 ABG O2 Saturation 98.9 % (95.0-99.0) 02/25/20 20:30 ABG O2 Content 14.8 (0.0-44) 02/25/20 20:30 POC ABG Base Excess 4.8 02/24/20 13:39 ABG Base Excess 2.7 mmol/L (-2.0-3.0) 02/25/20 20:30 ABG Hemoglobin 10.7 gm/dl (12.0-16.0) L 02/25/20 20:30 ABG Oxyhemoglobin 96.7 (94-98) 02/09/20 03:04 ABG Carboxyhemoglobin 1.4 % (0.0-5.0) 02/25/20 20:30 ABG Methemoglobin 0.6 % (0.0-1.5) 02/25/20 20:30 ABG Sodium 135.4 mmol/L (136.0-145.0) L 02/24/20 13:39 ABG Potassium 3.8 mmol/L (3.40-4.50) 02/24/20 13:39 ABG Chloride 106.0 mmol/L (98-107) 02/24/20 13:39 ABG Glucose 133 mg/dL (65-95) H 02/24/20 13:39 Oxyhemoglobin 97.0 % (95.0-99.0) 02/25/20 20:30 Carboxyhemoglobin TNR 02/08/20 03:55 FiO2 35 % 02/25/20 20:30 Sodium 142 mmol/L (137-145) D 02/24/20 04:20 Potassium 4.0 mmol/L (3.6-5.0) 02/24/20 04:20 Chloride 111.1 mmol/L (98-107) H 02/24/20 04:20 Carbon Dioxide 25 mmol/L (22-30) 02/24/20 04:20 Anion Gap 10 mmol/L 02/24/20 04:20 BUN 18 mg/dL (7-17) H 02/24/20 04:20 Creatinine 0.3 mg/dL (0.6-1.2) L 02/24/20 04:20 Estimated GFR > 60 ml/min 02/24/20 04:20 BUN/Creatinine Ratio 60 % 02/24/20 04:20 Glucose 115 mg/dL (65-100) H 02/24/20 04:20 POC Glucose 121 mg/dL (70-105) H 02/27/20 05:47 Hemoglobin A1c 5.3 % (4-6) 01/11/20 00:45 Lactic Acid 1.30 mmol/L (0.7-2.0) 01/26/20 23:27 Calcium 6.6 mg/dL (8.4-10.2) L D 02/24/20 04:20 Phosphorus 2.70 mg/dL (2.5-4.5) 02/24/20 04:20 Magnesium 2.00 mg/dL (1.7-2.3) 02/16/20 05:09 Total Bilirubin 0.20 mg/dL (0.1-1.2) 02/13/20 04:45 AST 29 units/L (5-40) 02/13/20 04:45 ALT 38 units/L (7-56) 02/13/20 04:45 Alkaline Phosphatase 109 units/L (35-129) 02/13/20 04:45 C-Reactive Protein 14.80 mg/dL (0.00-1.30) H 01/29/20 Unknown Total Protein 4.2 g/dL (6.3-8.2) L 02/13/20 04:45 Albumin 2.0 g/dL (3.9-5) L 02/13/20 04:45 Albumin/Globulin Ratio 0.9 % 02/13/20 04:45 TSH 2.440 mlU/mL (0.270-4.200) 01/10/20 10:10 Procalcitonin 1.86 ng/mL (<0.15) 01/29/20 Unknown Arterial Blood Glucose 133 mg/dL (65-95) H 02/24/20 13:39 Arterial Blood Ionized Calcium 4.7 mg/dL (4.6-5.3) 02/24/20 13:39 Urine Color [place] (Yellow) 01/08/20 Unknown Urine Turbidity Cloudy (Clear) 01/08/20 Unknown Urine pH 5.0 (5.0-7.0) 01/08/20 Unknown Ur Specific [place] 1.018 (1.003-1.030) 01/08/20 Unknown Urine Protein 30 mg/dl mg/dL (Negative) 01/08/20 Unknown Urine Glucose (UA) Neg mg/dL (Negative) 01/08/20 Unknown Urine Ketones Neg mg/dL (Negative) 01/08/20 Unknown Urine Blood Mod (Negative) 01/08/20 Unknown Urine Nitrite Neg (Negative) 01/08/20 Unknown Urine Bilirubin Neg (Negative) 01/08/20 Unknown Urine Urobilinogen < 2.0 mg/dL (<2.0) 01/08/20 Unknown Ur Leukocyte Esterase Sm (Negative) 01/08/20 Unknown Urine WBC (Auto) 11.0 /HPF (0.0-6.0) H 01/08/20 Unknown Urine RBC (Auto) 7.0 /HPF (0.0-6.0) 01/08/20 Unknown U Epithel Cells (Auto) < 1.0 /HPF (0-13.0) 01/08/20 Unknown Urine Bacteria (Auto) 1+ /HPF (Negative) 01/08/20 Unknown Urine Mucus 2+ /HPF 01/08/20 Unknown Urine Yeast (Budding) 1+ /HPF 01/08/20 Unknown Vancomycin Trough 7.9 ug/mL (5.0-20.0) 01/17/20 16:04 Coronavirus (PCR) Negative (Negative) 02/10/20 10:06 Blood Type A POSITIVE 02/11/20 08:22 Antibody Screen Negative 02/11/20 08:22 Crossmatch See Detail 02/11/20 08:22 Mejía/IV: Voiding Method Indwelling Catheter IV Catheter Type [Left Hand] Peripheral IV IV Catheter Type [Left Wrist] INT / Saline Lock IV Catheter Type [Left Upper PICC Line arm] IV Catheter Type [Right Upper Mid-line arm] IV Catheter Type [Right Peripheral IV Forearm] Active Medications - Current Medications Current Medications: Generic Name Dose Route Start Last Admin Trade Name Freq PRN Reason Stop Dose Admin Acetaminophen 650 mg 01/08/20 23:14 02/27/20 04:47 Tylenol PO 650 mg Q4H PRN Administration Pain MILD(1-3)/Fever >100.5/GARCIA Lipase/Protease/Amylase 1 each 01/17/20 08:[address] 10,500 Unit FEEDTUBE PRN PRN For Clogged Feeding Tube Atorvastatin Calcium 10 mg 01/09/20 22:00 02/26/20 21:23 Atorvastatin PO 10 mg QHS BRO Administration Dextrose 0 ml 01/08/20 23:14 02/10/20 17:18 D50w (25gm) Syringe IV 10 ml Q30MIN PRN Administration Hypoglycemia Protocol Donepezil HCl 10 mg 01/09/20 22:00 02/26/20 21:22 Aricept PO 10 mg QHS BRO Administration Famotidine 20 mg 01/27/20 10:00 02/26/20 21:22 Pepcid PO 20 mg BID BRO Administration Ferrous Sulfate 308 mg 02/09/20 12:00 02/26/20 09:51 Ferrous Sulfate FEEDTUBE 308 mg DAILY [facility] Administration Fluticasone Propionate 100 mcg 01/25/20 20:00 01/26/20 06:09 Flonase NS 100 mcg QDAY PRN Administration Nasal Congestion Glycopyrrolate 2 mg 02/18/20 22:00 02/26/20 21:23 Glycopyrrolate PO Not Given BID [facility] Heparin Sodium (Porcine) 5,000 unit 01/28/20 10:00 02/26/20 21:22 Heparin SUB-Q 5,000 unit Q12HR [facility] Administration Hydrophilic Ointment 1 applic 01/28/20 10:57 Vaseline Lip Therapy TP Q2HR PRN Dry Lips Piperacillin Sod/Tazobactam Sod 4.5 gm in 100 mls @ 200 mls/hr 01/19/20 14:00 02/27/20 06:20 Zosyn/Ns 4.5gm/100ml IV 02/27/20 22:29 Infused Q8HR [facility] Infusion Protocol Norepinephrine 4 mg in 250 mls @ 7.5 mls/hr 02/19/20 22:00 Levophed Drip 4 Mg/Ns 250 Ml IV TITR [facility] Protocol 2 MCG/MIN Sodium Chloride 250 mls @ 10 mls/hr 02/23/20 12:07 02/26/20 05:58 Nacl 0.9% 250ml IV 10 mls/hr PRN PRN Administration FOR SECONDARY LINE/ANTIBIOTICS Insulin Human Regular 0 unit 01/27/20 12:00 02/27/20 06:32 Humulin R SUB-Q Not Given Q6HR [facility] Protocol Loperamide HCl 2 mg 02/14/20 12:00 02/14/20 16:48 Loperamide PO 2 mg Q2H PRN Administration Diarrhea Magnesium Hydroxide 30 ml 01/08/20 23:14 Milk Of Magnesia PO Q4H PRN Constipation Mirtazapine 15 mg 01/09/20 22:00 02/26/20 21:23 Remeron PO 15 mg QHS BRO Administration Multi-Ingred Cream/Lotion/Oil/Oint 1 applic 01/28/20 10:57 Artificial Tears Ophth Oint OU Q4HR PRN Dry Eye(s) Multivitamins 5 ml 02/09/20 12:00 02/26/20 09:50 Centrum Liq PO 5 ml QDAY BRO Administration Ondansetron HCl 4 mg 01/08/20 23:14 Zofran IV Q8H PRN Nausea And Vomiting Oxycodone/Acetaminophen 1 tab 02/17/20 13:28 02/24/20 05:34 Percocet 5/325 PO 1 tab Q4H PRN Administration Pain, Moderate (4-6) Scopolamine 1 each 02/05/20 10:00 02/26/20 09:52 Transderm-Scop TD 1 each Q3D BRO Administration Simple Syrup 15 ml 01/17/20 08:37 Simple Syrup FEEDTUBE PRN PRN Hypoglycemia Simple Syrup 30 ml 01/17/20 08:37 02/11/20 23:43 Simple Syrup FEEDTUBE 30 ml PRN PRN Administration Hypoglycemia Sodium Bicarbonate 325 mg 01/17/20 08:37 Sodium Bicarbonate FEEDTUBE PRN PRN For Clogged Feeding Tube Sodium Chloride 10 ml 01/09/20 10:00 02/26/20 21:23 Sodium Chloride Flush Syringe 10 Ml IV 10 ml BID BRO Administration Sodium Chloride 10 ml 01/08/20 23:14 Sodium Chloride Flush Syringe 10 Ml IV PRN PRN LINE FLUSH Trazodone HCl 25 mg 01/09/20 22:00 02/26/20 21:22 Desyrel PO 25 mg QHS BRO Administration Nutrition/Malnutrition Assess - Dietary Evaluation Nutrition/Malnutrition Findings: Nutrition Notes Start: 01/09/20 12:13 Freq: Status: Active Protocol: Document 02/24/20 11:03 AL (Rec: 02/24/20 11:13 AL [email or web address]) Co-Sign 02/24/20 11:03 Nutrition Notes Initial or Follow up Reassessment Current Diagnosis Decubitus(Pressure Ulcer), Diabetes,Sepsis Other Pertinent Diagnosis UTI, dementia, PE, Sacral wound Current Diet Vital AF 1.2 at 50ml/hr Labs/Tests Reviewed Pertinent Medications Reviewed Height 5 ft 2 in Weight 63.1 kg [place] Body Weight (kg) 50.00 BMI 25.4 Weight Status Overweight Subjective/Other Information RD FU for stalbe TF. TF still running at 50 ml/hr (goal rate ). No issues with TF noted. Percent of energy/protein needs met: 91%/100% Burn Absent Trauma Absent Current % PO Negligible Minimum of two criteria Yes Fluid Accumulation Moderate to Severe (severe) Reduced Clinical Support Tech Strength Measurably Reduced (severe) #3 Nutrition Diagnosis Malnutrition Diagnosis Progress(for reassessment Continues documentation) #2 Nutrition Diagnosis Inadequate oral intake Diagnosis Progress(for reassessment Continues documentation) #1 Nutrition Diagnosis Increased nutrient needs ( specify in comment below) Comments: protein Diagnosis Progress(for reassessment Continues documentation) Is patient on ventilator? Yes Is Patient Ambulatory and/or Out of Bed No REE-([facility]-confined to bed) 1331.064 Kcal/Kg value to use for calculation 22 Approximate Energy Requirements Using 1388 kcal/Kg Calculation Used for Recommendations Kcal/kg Additional Notes Pro: 81-98 g (1.25-1.5 g/kg) Fluid: 1ml/kcal Nutrition Intervention Change Diet Order: Continue Nutrition Support: Vital AF 1.2 at 50ml/hr Flush 250ml q4h per MD Kcal 1,440 Protein (gm) 90 Fluid (mL) 973 Goal #1 TF tolerance Goal #2 Meet at least 80% of kcal and protein needs via TF Goal #3 Wound healing Anticipated Discharge Needs: Continue TF Follow-Up By: 03/02/20 Additional Comments F/U for stable TF
[2020-02-27] MEDS: GLYCOPYRROLATE 2 MG TAB PO SCH ×2 (09:44→21:48)
[2020-02-27] MEDS: FAMOTIDINE 20 MG TAB PO SCH ×2 (09:44→21:48)
[2020-02-27] MEDS: MULTIVITAMINS 5 ML ORAL LIQUID PO SCH (09:44)
[2020-02-27] MEDS: HEPARIN 5,000 UNIT/1 ML VIAL SUB-Q SCH ×2 (09:45→21:45)
[2020-02-27] MEDS: FERROUS SULFATE 308 MG (62mg Elemental Iron) / 7 ML ELIXIR FEEDTUBE SCH (09:48)
--- NOTE | 2020-02-27 13:23 | Progress Note ---
Assessment and Plan Severe sepsis with shock. Left lung atelectasis. Left pleural effusion. Acute hypoxemic respiratory failure. Acute possibly on chronic encephalopathy. History of diabetes. Urinary tract infection. History of pulmonary embolism, diagnosed several months ago. Sacral decubitus ulcer. Dementia. Anemia that is normocytic. - s/p wound care per [facility] - again shoot for RTC t-piece as tolerated - ABG at 9 pm to assess ventilation (if still on t-piece) - continue care as below otherwise; - prn vasopressors for target MAP > 65 mmHg - continue daily SAT's and SBT's as tolerated - continue scopolamine for secretions - continue to rest on AC qhs for now - complete AB's per ID rec's (Zosyn) - continue to wean supplemental oxygen for target O2 sat's > 92% acutely - VAP bundle addressed - continue lung protective strategies - continue bronchodilators with routine trach care and pulmonary hygiene per RT - wean per pulmonary driven protocols otherwise - continue accuchecks with glycemic control per SSI (While critically ill target blood glucose of 140-180 mg/dL; avoid hypoglycemia) - sedation prn for target RASS 0 to -1 - avoid nephrotoxins, renally dose all medications - continue to avoid benzodiazepine's, reduce the possibility of delirium - prn analgesia per CPOT score - Maintenance of sleep-wake cycle, avoid delirium - continue enteral nutritional support at goal rate as tolerated - G.I. & VTE prophylaxis with famotidine and heparin - PT/OT/ROM exercises - continue mobility protocols for pressure ulcer prophylaxis - Monitor hemodynamics closely - continue other care per attending / other consultants - discharge planning ongoing concurrently .... Re-evaluate in am & prn CONDITION: CRITICAL PROGNOSIS: GUARDED CODE STATUS: FULL CODE The high probability of a clinically significant, sudden or life-threatening deterioration of the [respiratory, cardiovascular & neurologic] system(s) required my full and direct attention, intervention and personal management. The aggregate critical care time was [35] minutes without overlap. Time includes spent on; [x] Data Review and interpretation [x] Patient assessment and monitoring of vital signs [x] Documentation [x] Medication orders and management Subjective Date of service: 02/27/20 Principal diagnosis: Septic Shock; S/P Cardiac Arrest; Ac. hypoxemic resp failure; UTI Interval history: Patient is seen today for: Severe sepsis with shock; S/P Cardiac Arrest; L. lung atelectasis / L. pleural effusion; Acute hypoxemic respiratory failure; Acute possibly on chronic encephalopathy; DM II; UTI; VTE Seen and examined at bedside; 24hour events reviewed; nursing and respiratory care staff consulted; no adverse overnight events reported to me; resting peacefully in bed; AMS is persistent; tired out on t-piece yesterday and back on MVS; BP's better; no new issues otherwise Objective Vital Signs - 12hr 02/27/20 02/27/20 02/27/20 01:30 01:41 01:51 Temperature Pulse Rate 102 H 99 H 108 H Pulse Rate [ From Monitor] Respiratory 22 18 20 Rate Blood Pressure 110/65 110/65 110/65 O2 Sat by Pulse 100 100 100 Oximetry O2 Sat by Pulse Oximetry [ Assessment] 02/27/20 02/27/20 02/27/20 02:00 02:11 02:21 Temperature Pulse Rate 98 H 111 H 110 H Pulse Rate [ From Monitor] Respiratory 15 24 24 Rate Blood Pressure 97/50 97/50 97/50 O2 Sat by Pulse 100 100 100 Oximetry O2 Sat by Pulse Oximetry [ Assessment] 02/27/20 02/27/20 02/27/20 02:30 02:41 02:51 Temperature Pulse Rate 112 H 107 H 112 H Pulse Rate [ From Monitor] Respiratory 16 25 H 28 H Rate Blood Pressure 126/69 126/69 97/50 O2 Sat by Pulse 100 100 100 Oximetry O2 Sat by Pulse Oximetry [ Assessment] 02/27/20 02/27/20 02/27/20 03:00 03:11 03:21 Temperature 99.6 F Pulse Rate 113 H 113 H 107 H Pulse Rate [ From Monitor] Respiratory 21 23 24 Rate Blood Pressure 121/74 121/74 121/74 O2 Sat by Pulse 100 100 100 Oximetry O2 Sat by Pulse Oximetry [ Assessment] 02/27/20 02/27/20 02/27/20 03:30 03:35 03:41 Temperature Pulse Rate 110 H 112 H 111 H Pulse Rate [ From Monitor] Respiratory 25 H 26 H Rate Blood Pressure 112/72 112/72 112/72 O2 Sat by Pulse 100 100 100 Oximetry O2 Sat by Pulse Oximetry [ Assessment] 02/27/20 02/27/20 02/27/20 03:51 03:55 04:00 Temperature Pulse Rate 115 H 111 H 111 H Pulse Rate [ 111 H From Monitor] Respiratory 26 H 22 26 H Rate Blood Pressure 112/72 118/65 O2 Sat by Pulse 100 100 100 Oximetry O2 Sat by Pulse Oximetry [ Assessment] 02/27/20 02/27/20 02/27/20 04:11 04:21 04:30 Temperature Pulse Rate 111 H 108 H 111 H Pulse Rate [ From Monitor] Respiratory 23 14 20 Rate Blood Pressure 118/65 118/65 119/63 O2 Sat by Pulse 100 100 100 Oximetry O2 Sat by Pulse Oximetry [ Assessment] 02/27/20 02/27/20 02/27/20 04:41 04:47 04:51 Temperature Pulse Rate 108 H 110 H Pulse Rate [ From Monitor] Respiratory 27 H 22 20 Rate Blood Pressure 119/63 119/63 O2 Sat by Pulse 100 100 Oximetry O2 Sat by Pulse Oximetry [ Assessment] 02/27/20 02/27/20 02/27/20 05:00 05:11 05:21 Temperature Pulse Rate 100 H 102 H 103 H Pulse Rate [ From Monitor] Respiratory 19 16 13 Rate Blood Pressure 103/53 103/53 103/53 O2 Sat by Pulse 100 100 100 Oximetry O2 Sat by Pulse Oximetry [ Assessment] 02/27/20 02/27/20 02/27/20 05:30 05:41 05:51 Temperature Pulse Rate 111 H 86 100 H Pulse Rate [ From Monitor] Respiratory 24 19 18 Rate Blood Pressure 114/64 114/64 114/64 O2 Sat by Pulse 100 100 100 Oximetry O2 Sat by Pulse Oximetry [ Assessment] 02/27/20 02/27/20 02/27/20 06:00 06:11 06:20 Temperature Pulse Rate 85 82 78 Pulse Rate [ From Monitor] Respiratory 16 17 16 Rate Blood Pressure 88/46 88/46 94/45 O2 Sat by Pulse 100 100 100 Oximetry O2 Sat by Pulse Oximetry [ Assessment] 02/27/20 02/27/20 02/27/20 06:30 06:41 06:51 Temperature Pulse Rate 103 H 75 72 Pulse Rate [ From Monitor] Respiratory 18 16 18 Rate Blood Pressure 95/72 95/72 95/72 O2 Sat by Pulse 100 100 100 Oximetry O2 Sat by Pulse Oximetry [ Assessment] 02/27/20 02/27/20 02/27/20 07:00 07:11 07:21 Temperature Pulse Rate 73 78 71 Pulse Rate [ From Monitor] Respiratory 16 16 17 Rate Blood Pressure 95/43 95/43 95/43 O2 Sat by Pulse 100 100 100 Oximetry O2 Sat by Pulse Oximetry [ Assessment] 02/27/20 02/27/20 02/27/20 07:27 07:30 07:41 Temperature Pulse Rate 79 93 H 97 H Pulse Rate [ From Monitor] Respiratory 15 16 Rate Blood Pressure 99/48 99/48 99/48 O2 Sat by Pulse 100 100 100 Oximetry O2 Sat by Pulse 100 Oximetry [ Assessment] 02/27/20 02/27/20 02/27/20 07:51 08:00 08:01 Temperature 99 F Pulse Rate 79 74 Pulse Rate [ From Monitor] Respiratory 14 17 Rate Blood Pressure 99/48 79/39 O2 Sat by Pulse 100 100 Oximetry O2 Sat by Pulse Oximetry [ Assessment] 02/27/20 02/27/20 02/27/20 08:11 08:21 08:30 Temperature Pulse Rate 89 82 71 Pulse Rate [ From Monitor] Respiratory 17 17 16 Rate Blood Pressure 79/39 79/39 74/37 O2 Sat by Pulse 100 100 100 Oximetry O2 Sat by Pulse Oximetry [ Assessment] 02/27/20 02/27/20 02/27/20 08:41 08:51 09:00 Temperature Pulse Rate 99 H 72 84 Pulse Rate [ From Monitor] Respiratory 21 17 16 Rate Blood Pressure 74/37 74/37 82/43 O2 Sat by Pulse 100 100 100 Oximetry O2 Sat by Pulse Oximetry [ Assessment] 02/27/20 02/27/20 02/27/20 09:11 09:21 09:30 Temperature Pulse Rate 73 80 95 H Pulse Rate [ From Monitor] Respiratory 18 18 18 Rate Blood Pressure 82/43 82/43 96/54 O2 Sat by Pulse 100 100 100 Oximetry O2 Sat by Pulse Oximetry [ Assessment] 02/27/20 02/27/20 02/27/20 09:41 09:50 09:51 Temperature Pulse Rate 79 103 H 105 H Pulse Rate [ From Monitor] Respiratory 17 24 23 Rate Blood Pressure 96/54 96/54 96/54 O2 Sat by Pulse 100 100 100 Oximetry O2 Sat by Pulse Oximetry [ Assessment] 02/27/20 02/27/20 02/27/20 10:00 10:11 10:21 Temperature Pulse Rate 102 H 108 H 119 H Pulse Rate [ From Monitor] Respiratory 22 24 22 Rate Blood Pressure 111/62 111/62 111/62 O2 Sat by Pulse 100 100 100 Oximetry O2 Sat by Pulse Oximetry [ Assessment] 02/27/20 02/27/20 02/27/20 10:30 10:41 10:51 Temperature Pulse Rate 118 H 114 H 117 H Pulse Rate [ From Monitor] Respiratory 26 H 22 20 Rate Blood Pressure 121/61 121/61 121/61 O2 Sat by Pulse 100 100 100 Oximetry O2 Sat by Pulse Oximetry [ Assessment] 02/27/20 11:00 Temperature Pulse Rate 119 H Pulse Rate [ From Monitor] Respiratory 29 H Rate Blood Pressure 121/66 O2 Sat by Pulse 100 Oximetry O2 Sat by Pulse Oximetry [ Assessment] Constitutional: no acute distress, alert, other (elderly chronically ill looking female trach to [facility] [place]) Eyes: non-icteric ENT: oropharynx moist, other (trach) Neck: supple, no lymphadenopathy, no JVD Effort: normal Ascultation: Bilateral: diminished breath sounds, rhonchi (scant bases) Percussion: Bilateral: not dull Cardiovascular: regular rate and rhythm, other (S1,S2) Gastrointestinal: normoactive bowel sounds, soft, non-tender, non-distended, other (PEG in place) Integumentary: decubitus ulcer Extremities: no cyanosis, pulses normal, no ischemia or petechiae, edema (bilateral upper extremity edema) Neurologic: pupils equal and round, other (awake and alert, not obeying commands) Psychiatric: other (Unable to assess secondary to mental status) CBC and BMP: 02/24/20 07:02 02/24/20 04:20 ABG, PT/INR, D-dimer: ABG ABG pH 7.498 pH Units (7.350-7.450) H 02/25/20 20:30 POC ABG pCO2 37.3 mmHg (32.0-48.0) 02/24/20 13:39 ABG pCO2 34.0 mm Hg 02/25/20 20:30 POC ABG pO2 108.0 mmHg (83-108) 02/24/20 13:39 ABG pO2 146.1 mm Hg (80.0-90.0) H 02/25/20 20:30 POC ABG HCO3 28.2 02/24/20 13:39 ABG O2 Saturation 98.9 % (95.0-99.0) 02/25/20 20:30 PT/INR, D-dimer PT 14.4 Sec. (12.2-14.9) 02/02/20 05:25 INR 1.11 (0.87-1.13) 02/02/20 05:25 Abnormal lab findings: Abnormal Labs 01/08/20 01/08/20 01/08/20 16:29 16:29 16:29 WBC 13.5 H RBC Hgb Hct MCHC RDW 15.5 H Plt Count MCH Lymph % (Auto) Lymph # Lymph # (Auto) Seg Neutrophils % Seg Neuts % (Manual) 85.0 H Lymphocytes % (Manual) 11.0 L Seg Neutrophils # Seg Neutrophils # Man 11.5 H Basophils % (Manual) Nucleated RBC % Lymphocytes # (Manual) Monocytes # (Manual) Basophils # (Manual) PT INR Heparin Anti-Xa Level POC ABG pO2 ABG pH ABG Hemoglobin ABG Oxyhemoglobin ABG pO2 ABG HCO3 ABG O2 Saturation ABG Base Excess ABG Sodium ABG Potassium ABG Chloride ABG Glucose Oxyhemoglobin Sodium 161 H* Potassium Chloride 125.5 H Carbon Dioxide 20 L BUN 30 H Creatinine Glucose 115 H POC Glucose Lactic Acid 2.20 H* Calcium 7.9 L AST 48 H Phosphorus Total Protein Albumin 2.5 L C-Reactive Protein Arterial Blood Glucose Arterial Blood Ionized Calcium Urine WBC (Auto) Crossmatch 01/08/20 01/08/20 01/08/20 19:02 23:30 Unknown WBC RBC Hgb Hct MCHC RDW Plt Count MCH Lymph % (Auto) Lymph # Lymph # (Auto) Seg Neutrophils % Seg Neuts % (Manual) Lymphocytes % (Manual) Seg Neutrophils # Seg Neutrophils # Man Basophils % (Manual) Nucleated RBC % Lymphocytes # (Manual) Monocytes # (Manual) Basophils # (Manual) PT INR Heparin Anti-Xa Level POC ABG pO2 ABG pH ABG Hemoglobin ABG Oxyhemoglobin ABG pO2 ABG HCO3 ABG O2 Saturation ABG Base Excess ABG Sodium ABG Potassium ABG Chloride ABG Glucose Oxyhemoglobin Sodium Potassium Chloride Carbon Dioxide BUN Creatinine Glucose POC Glucose Lactic Acid 2.10 H* 2.50 H* Calcium AST Phosphorus Total Protein Albumin C-Reactive Protein Arterial Blood Glucose Arterial Blood Ionized Calcium Urine WBC (Auto) 11.0 H Crossmatch 01/09/20 01/09/20 01/09/20 00:19 00:54 05:52 WBC 13.5 H RBC 3.02 L Hgb 9.0 L D Hct 27.4 L D MCHC RDW Plt Count MCH Lymph % (Auto) 9.1 L Lymph # Lymph # (Auto) Seg Neutrophils % 87.6 H Seg Neuts % (Manual) Lymphocytes % (Manual) Seg Neutrophils # 11.8 H Seg Neutrophils # Man Basophils % (Manual) Nucleated RBC % Lymphocytes # (Manual) Monocytes # (Manual) Basophils # (Manual) PT INR Heparin Anti-Xa Level POC ABG pO2 ABG pH ABG Hemoglobin ABG Oxyhemoglobin ABG pO2 ABG HCO3 ABG O2 Saturation ABG Base Excess ABG Sodium ABG Potassium ABG Chloride ABG Glucose Oxyhemoglobin Sodium Potassium Chloride Carbon Dioxide BUN Creatinine Glucose POC Glucose 118 H 116 H Lactic Acid Calcium AST Phosphorus Total Protein Albumin C-Reactive Protein Arterial Blood Glucose Arterial Blood Ionized Calcium Urine WBC (Auto) Crossmatch 01/09/20 01/09/20 01/09/20 05:52 05:52 13:03 WBC RBC Hgb Hct MCHC RDW Plt Count MCH Lymph % (Auto) Lymph # Lymph # (Auto) Seg Neutrophils % Seg Neuts % (Manual) Lymphocytes % (Manual) Seg Neutrophils # Seg Neutrophils # Man Basophils % (Manual) Nucleated RBC % Lymphocytes # (Manual) Monocytes # (Manual) Basophils # (Manual) PT 17.1 H INR 1.36 H Heparin Anti-Xa Level POC ABG pO2 ABG pH ABG Hemoglobin ABG Oxyhemoglobin ABG pO2 ABG HCO3 ABG O2 Saturation ABG Base Excess ABG Sodium ABG Potassium ABG Chloride ABG Glucose Oxyhemoglobin Sodium 162 H* Potassium 3.0 L D Chloride 128.3 H Carbon Dioxide BUN 23 H Creatinine Glucose POC Glucose 55 L Lactic Acid Calcium 7.6 L AST Phosphorus Total Protein Albumin C-Reactive Protein Arterial Blood Glucose Arterial Blood Ionized Calcium Urine WBC (Auto) Crossmatch 01/09/20 01/09/20 01/09/20 21:22 21:50 22:28 WBC RBC Hgb Hct MCHC RDW Plt Count MCH Lymph % (Auto) Lymph # Lymph # (Auto) Seg Neutrophils % Seg Neuts % (Manual) Lymphocytes % (Manual) Seg Neutrophils # Seg Neutrophils # Man Basophils % (Manual) Nucleated RBC % Lymphocytes # (Manual) Monocytes # (Manual) Basophils # (Manual) PT INR Heparin Anti-Xa Level POC ABG pO2 ABG pH ABG Hemoglobin ABG Oxyhemoglobin ABG pO2 ABG HCO3 ABG O2 Saturation ABG Base Excess ABG Sodium ABG Potassium ABG Chloride ABG Glucose Oxyhemoglobin Sodium 159 H Potassium 5.1 H D Chloride 128.5 H Carbon Dioxide 16 L BUN 23 H Creatinine Glucose 51 L POC Glucose 52 L 106 H Lactic Acid Calcium 8.2 L AST Phosphorus Total Protein Albumin C-Reactive Protein Arterial Blood Glucose Arterial Blood Ionized Calcium Urine WBC (Auto) Crossmatch 01/10/20 01/10/20 01/10/20 05:23 09:11 10:10 WBC 13.4 H RBC Hgb Hct MCHC RDW Plt Count MCH Lymph % (Auto) 7.2 L Lymph # 1.0 L Lymph # (Auto) Seg Neutrophils % 90.0 H Seg Neuts % (Manual) Lymphocytes % (Manual) Seg Neutrophils # 12.0 H Seg Neutrophils # Man Basophils % (Manual) Nucleated RBC % Lymphocytes # (Manual) Monocytes # (Manual) Basophils # (Manual) PT INR Heparin Anti-Xa Level POC ABG pO2 ABG pH ABG Hemoglobin ABG Oxyhemoglobin ABG pO2 ABG HCO3 ABG O2 Saturation ABG Base Excess ABG Sodium ABG Potassium ABG Chloride ABG Glucose Oxyhemoglobin Sodium 155 H Potassium Chloride 122.8 H Carbon Dioxide 21 L BUN 19 H Creatinine Glucose POC Glucose 120 H Lactic Acid Calcium AST Phosphorus Total Protein Albumin C-Reactive Protein Arterial Blood Glucose Arterial Blood Ionized Calcium Urine WBC (Auto) Crossmatch 01/10/20 01/10/20 01/10/20 11:47 11:57 17:09 WBC RBC Hgb Hct MCHC RDW Plt Count MCH Lymph % (Auto) Lymph # Lymph # (Auto) Seg Neutrophils % Seg Neuts % (Manual) Lymphocytes % (Manual) Seg Neutrophils # Seg Neutrophils # Man Basophils % (Manual) Nucleated RBC % Lymphocytes # (Manual) Monocytes # (Manual) Basophils # (Manual) PT INR Heparin Anti-Xa Level POC ABG pO2 ABG pH ABG Hemoglobin ABG Oxyhemoglobin ABG pO2 ABG HCO3 ABG O2 Saturation ABG Base Excess ABG Sodium ABG Potassium ABG Chloride ABG Glucose Oxyhemoglobin Sodium 153 H Potassium Chloride 118.3 H Carbon Dioxide 20 L BUN 19 H Creatinine Glucose 113 H POC Glucose 142 H 125 H Lactic Acid Calcium AST Phosphorus Total Protein Albumin C-Reactive Protein Arterial Blood Glucose Arterial Blood Ionized Calcium Urine WBC (Auto) Crossmatch 01/10/20 01/10/20 01/11/20 20:27 22:00 00:45 WBC RBC Hgb Hct MCHC RDW Plt Count MCH Lymph % (Auto) Lymph # Lymph # (Auto) Seg Neutrophils % Seg Neuts % (Manual) Lymphocytes % (Manual) Seg Neutrophils # Seg Neutrophils # Man Basophils % (Manual) Nucleated RBC % Lymphocytes # (Manual) Monocytes # (Manual) Basophils # (Manual) PT INR Heparin Anti-Xa Level POC ABG pO2 ABG pH ABG Hemoglobin ABG Oxyhemoglobin ABG pO2 ABG HCO3 ABG O2 Saturation ABG Base Excess ABG Sodium ABG Potassium ABG Chloride ABG Glucose Oxyhemoglobin Sodium 153 H 154 H Potassium 3.3 L 3.2 L Chloride 117.0 H 118.9 H Carbon Dioxide 20 L BUN Creatinine Glucose POC Glucose 136 H Lactic Acid Calcium 8.3 L 8.0 L AST Phosphorus Total Protein Albumin C-Reactive Protein Arterial Blood Glucose Arterial Blood Ionized Calcium Urine WBC (Auto) Crossmatch 01/11/20 01/11/20 01/11/20 07:06 08:03 11:54 WBC RBC Hgb Hct MCHC RDW Plt Count MCH Lymph % (Auto) Lymph # Lymph # (Auto) Seg Neutrophils % Seg Neuts % (Manual) Lymphocytes % (Manual) Seg Neutrophils # Seg Neutrophils # Man Basophils % (Manual) Nucleated RBC % Lymphocytes # (Manual) Monocytes # (Manual) Basophils # (Manual) PT INR Heparin Anti-Xa Level POC ABG pO2 ABG pH ABG Hemoglobin ABG Oxyhemoglobin ABG pO2 ABG HCO3 ABG O2 Saturation ABG Base Excess ABG Sodium ABG Potassium ABG Chloride ABG Glucose Oxyhemoglobin Sodium 151 H Potassium Chloride 118.7 H Carbon Dioxide 21 L BUN Creatinine Glucose 107 H POC Glucose 118 H 164 H Lactic Acid Calcium 8.3 L AST Phosphorus Total Protein Albumin C-Reactive Protein Arterial Blood Glucose Arterial Blood Ionized Calcium Urine WBC (Auto) Crossmatch 01/11/20 01/12/20 01/12/20 16:28 00:19 05:40 WBC RBC Hgb Hct MCHC RDW Plt Count MCH Lymph % (Auto) Lymph # Lymph # (Auto) Seg Neutrophils % Seg Neuts % (Manual) Lymphocytes % (Manual) Seg Neutrophils # Seg Neutrophils # Man Basophils % (Manual) Nucleated RBC % Lymphocytes # (Manual) Monocytes # (Manual) Basophils # (Manual) PT INR Heparin Anti-Xa Level POC ABG pO2 ABG pH ABG Hemoglobin ABG Oxyhemoglobin ABG pO2 ABG HCO3 ABG O2 Saturation ABG Base Excess ABG Sodium ABG Potassium ABG Chloride ABG Glucose Oxyhemoglobin Sodium 148 H Potassium Chloride 111.6 H Carbon Dioxide 19 L BUN Creatinine Glucose 128 H POC Glucose 132 H 179 H Lactic Acid Calcium 8.2 L AST Phosphorus Total Protein Albumin C-Reactive Protein Arterial Blood Glucose Arterial Blood Ionized Calcium Urine WBC (Auto) Crossmatch 01/12/20 01/12/20 01/12/20 06:17 11:37 17:21 WBC RBC Hgb Hct MCHC RDW Plt Count MCH Lymph % (Auto) Lymph # Lymph # (Auto) Seg Neutrophils % Seg Neuts % (Manual) Lymphocytes % (Manual) Seg Neutrophils # Seg Neutrophils # Man Basophils % (Manual) Nucleated RBC % Lymphocytes # (Manual) Monocytes # (Manual) Basophils # (Manual) PT INR Heparin Anti-Xa Level POC ABG pO2 ABG pH ABG Hemoglobin ABG Oxyhemoglobin ABG pO2 ABG HCO3 ABG O2 Saturation ABG Base Excess ABG Sodium ABG Potassium ABG Chloride ABG Glucose Oxyhemoglobin Sodium Potassium Chloride Carbon Dioxide BUN Creatinine Glucose POC Glucose 140 H 142 H 133 H Lactic Acid Calcium AST Phosphorus Total Protein Albumin C-Reactive Protein Arterial Blood Glucose Arterial Blood Ionized Calcium Urine WBC (Auto) Crossmatch 01/12/20 01/13/20 01/13/20 23:14 05:26 07:00 WBC RBC Hgb Hct MCHC RDW Plt Count MCH Lymph % (Auto) Lymph # Lymph # (Auto) Seg Neutrophils % Seg Neuts % (Manual) Lymphocytes % (Manual) Seg Neutrophils # Seg Neutrophils # Man Basophils % (Manual) Nucleated RBC % Lymphocytes # (Manual) Monocytes # (Manual) Basophils # (Manual) PT INR Heparin Anti-Xa Level POC ABG pO2 ABG pH ABG Hemoglobin ABG Oxyhemoglobin ABG pO2 ABG HCO3 ABG O2 Saturation ABG Base Excess ABG Sodium ABG Potassium ABG Chloride ABG Glucose Oxyhemoglobin Sodium Potassium Chloride 110.0 H Carbon Dioxide BUN Creatinine Glucose 139 H POC Glucose 135 H 162 H Lactic Acid Calcium 7.8 L AST Phosphorus Total Protein Albumin C-Reactive Protein Arterial Blood Glucose Arterial Blood Ionized Calcium Urine WBC (Auto) Crossmatch 01/13/20 01/13/20 01/13/20 12:14 17:52 21:40 WBC RBC Hgb Hct MCHC RDW Plt Count MCH Lymph % (Auto) Lymph # Lymph # (Auto) Seg Neutrophils % Seg Neuts % (Manual) Lymphocytes % (Manual) Seg Neutrophils # Seg Neutrophils # Man Basophils % (Manual) Nucleated RBC % Lymphocytes # (Manual) Monocytes # (Manual) Basophils # (Manual) PT INR Heparin Anti-Xa Level POC ABG pO2 ABG pH ABG Hemoglobin ABG Oxyhemoglobin ABG pO2 ABG HCO3 ABG O2 Saturation ABG Base Excess ABG Sodium ABG Potassium ABG Chloride ABG Glucose Oxyhemoglobin Sodium Potassium Chloride Carbon Dioxide BUN Creatinine Glucose POC Glucose 205 H 172 H 186 H Lactic Acid Calcium AST Phosphorus Total Protein Albumin C-Reactive Protein Arterial Blood Glucose Arterial Blood Ionized Calcium Urine WBC (Auto) Crossmatch 01/14/20 01/14/20 01/14/20 04:28 11:01 11:01 WBC 14.8 H RBC 3.20 L Hgb 9.5 L Hct 28.0 L MCHC RDW Plt Count MCH Lymph % (Auto) Lymph # Lymph # (Auto) Seg Neutrophils % Seg Neuts % (Manual) Lymphocytes % (Manual) Seg Neutrophils # Seg Neutrophils # Man Basophils % (Manual) Nucleated RBC % Lymphocytes # (Manual) Monocytes # (Manual) Basophils # (Manual) PT INR Heparin Anti-Xa Level POC ABG pO2 ABG pH ABG Hemoglobin ABG Oxyhemoglobin ABG pO2 ABG HCO3 ABG O2 Saturation ABG Base Excess ABG Sodium ABG Potassium ABG Chloride ABG Glucose Oxyhemoglobin Sodium Potassium 3.2 L Chloride Carbon Dioxide BUN Creatinine 0.4 L Glucose POC Glucose 115 H Lactic Acid Calcium 8.0 L AST Phosphorus Total Protein Albumin C-Reactive Protein Arterial Blood Glucose Arterial Blood Ionized Calcium Urine WBC (Auto) Crossmatch 01/14/20 01/14/20 01/14/20 11:01 16:33 22:32 WBC RBC Hgb Hct MCHC RDW Plt Count MCH Lymph % (Auto) Lymph # Lymph # (Auto) Seg Neutrophils % Seg Neuts % (Manual) Lymphocytes % (Manual) Seg Neutrophils # Seg Neutrophils # Man Basophils % (Manual) Nucleated RBC % Lymphocytes # (Manual) Monocytes # (Manual) Basophils # (Manual) PT 15.8 H INR 1.23 H Heparin Anti-Xa Level POC ABG pO2 ABG pH ABG Hemoglobin ABG Oxyhemoglobin ABG pO2 ABG HCO3 ABG O2 Saturation ABG Base Excess ABG Sodium ABG Potassium ABG Chloride ABG Glucose Oxyhemoglobin Sodium Potassium Chloride Carbon Dioxide BUN Creatinine Glucose POC Glucose 58 L 188 H Lactic Acid Calcium AST Phosphorus Total Protein Albumin C-Reactive Protein Arterial Blood Glucose Arterial Blood Ionized Calcium Urine WBC (Auto) Crossmatch 01/15/20 01/15/20 01/15/20 05:35 06:19 17:17 WBC RBC Hgb Hct MCHC RDW Plt Count MCH Lymph % (Auto) Lymph # Lymph # (Auto) Seg Neutrophils % Seg Neuts % (Manual) Lymphocytes % (Manual) Seg Neutrophils # Seg Neutrophils # Man Basophils % (Manual) Nucleated RBC % Lymphocytes # (Manual) Monocytes # (Manual) Basophils # (Manual) PT INR Heparin Anti-Xa Level POC ABG pO2 ABG pH ABG Hemoglobin ABG Oxyhemoglobin ABG pO2 ABG HCO3 ABG O2 Saturation ABG Base Excess ABG Sodium ABG Potassium ABG Chloride ABG Glucose Oxyhemoglobin Sodium Potassium Chloride Carbon Dioxide BUN Creatinine 0.5 L Glucose 104 H POC Glucose 106 H 183 H Lactic Acid Calcium 7.8 L AST Phosphorus Total Protein Albumin C-Reactive Protein Arterial Blood Glucose Arterial Blood Ionized Calcium Urine WBC (Auto) Crossmatch 01/15/20 01/16/20 01/16/20 22:29 05:35 05:59 WBC 14.7 H RBC 3.04 L Hgb 9.0 L Hct 27.0 L MCHC RDW Plt Count MCH Lymph % (Auto) 9.1 L Lymph # Lymph # (Auto) Seg Neutrophils % 87.3 H Seg Neuts % (Manual) Lymphocytes % (Manual) Seg Neutrophils # 12.9 H Seg Neutrophils # Man Basophils % (Manual) Nucleated RBC % Lymphocytes # (Manual) Monocytes # (Manual) Basophils # (Manual) PT INR Heparin Anti-Xa Level POC ABG pO2 ABG pH ABG Hemoglobin ABG Oxyhemoglobin ABG pO2 ABG HCO3 ABG O2 Saturation ABG Base Excess ABG Sodium ABG Potassium ABG Chloride ABG Glucose Oxyhemoglobin Sodium Potassium Chloride Carbon Dioxide BUN Creatinine Glucose POC Glucose 228 H 130 H Lactic Acid Calcium AST Phosphorus Total Protein Albumin C-Reactive Protein Arterial Blood Glucose Arterial Blood Ionized Calcium Urine WBC (Auto) Crossmatch 01/16/20 01/16/20 01/16/20 09:52 12:49 17:30 WBC RBC Hgb Hct MCHC RDW Plt Count MCH Lymph % (Auto) Lymph # Lymph # (Auto) Seg Neutrophils % Seg Neuts % (Manual) Lymphocytes % (Manual) Seg Neutrophils # Seg Neutrophils # Man Basophils % (Manual) Nucleated RBC % Lymphocytes # (Manual) Monocytes # (Manual) Basophils # (Manual) PT INR Heparin Anti-Xa Level POC ABG pO2 ABG pH ABG Hemoglobin ABG Oxyhemoglobin ABG pO2 ABG HCO3 ABG O2 Saturation ABG Base Excess ABG Sodium ABG Potassium ABG Chloride ABG Glucose Oxyhemoglobin Sodium Potassium Chloride Carbon Dioxide BUN Creatinine Glucose POC Glucose 122 H 142 H 192 H Lactic Acid Calcium AST Phosphorus Total Protein Albumin C-Reactive Protein Arterial Blood Glucose Arterial Blood Ionized Calcium Urine WBC (Auto) Crossmatch 01/16/20 01/17/20 01/17/20 23:01 08:36 08:36 WBC 12.7 H RBC 2.98 L Hgb 8.9 L Hct 26.4 L MCHC RDW Plt Count MCH Lymph % (Auto) 8.8 L Lymph # 1.1 L Lymph # (Auto) Seg Neutrophils % 86.7 H Seg Neuts % (Manual) Lymphocytes % (Manual) Seg Neutrophils # 11.0 H Seg Neutrophils # Man Basophils % (Manual) Nucleated RBC % Lymphocytes # (Manual) Monocytes # (Manual) Basophils # (Manual) PT INR Heparin Anti-Xa Level POC ABG pO2 ABG pH ABG Hemoglobin ABG Oxyhemoglobin ABG pO2 ABG HCO3 ABG O2 Saturation ABG Base Excess ABG Sodium ABG Potassium ABG Chloride ABG Glucose Oxyhemoglobin Sodium Potassium 3.3 L D Chloride Carbon Dioxide BUN Creatinine 0.4 L Glucose POC Glucose 141 H Lactic Acid Calcium 8.1 L AST Phosphorus Total Protein 4.6 L Albumin 1.6 L C-Reactive Protein Arterial Blood Glucose Arterial Blood Ionized Calcium Urine WBC (Auto) Crossmatch 01/17/20 01/17/20 01/18/20 11:43 23:56 06:27 WBC RBC Hgb Hct MCHC RDW Plt Count MCH Lymph % (Auto) Lymph # Lymph # (Auto) Seg Neutrophils % Seg Neuts % (Manual) Lymphocytes % (Manual) Seg Neutrophils # Seg Neutrophils # Man Basophils % (Manual) Nucleated RBC % Lymphocytes # (Manual) Monocytes # (Manual) Basophils # (Manual) PT INR Heparin Anti-Xa Level POC ABG pO2 ABG pH ABG Hemoglobin ABG Oxyhemoglobin ABG pO2 ABG HCO3 ABG O2 Saturation ABG Base Excess ABG Sodium ABG Potassium ABG Chloride ABG Glucose Oxyhemoglobin Sodium Potassium Chloride Carbon Dioxide BUN Creatinine Glucose POC Glucose 137 H 215 H 122 H Lactic Acid Calcium AST Phosphorus Total Protein Albumin C-Reactive Protein Arterial Blood Glucose Arterial Blood Ionized Calcium Urine WBC (Auto) Crossmatch 01/18/20 01/18/20 01/18/20 07:31 07:31 11:39 WBC 12.1 H RBC 3.23 L Hgb 9.7 L Hct 28.7 L MCHC RDW Plt Count MCH Lymph % (Auto) 9.2 L Lymph # 1.1 L Lymph # (Auto) Seg Neutrophils % 85.0 H Seg Neuts % (Manual) Lymphocytes % (Manual) Seg Neutrophils # 10.3 H Seg Neutrophils # Man Basophils % (Manual) Nucleated RBC % Lymphocytes # (Manual) Monocytes # (Manual) Basophils # (Manual) PT INR Heparin Anti-Xa Level POC ABG pO2 ABG pH ABG Hemoglobin ABG Oxyhemoglobin ABG pO2 ABG HCO3 ABG O2 Saturation ABG Base Excess ABG Sodium ABG Potassium ABG Chloride ABG Glucose Oxyhemoglobin Sodium Potassium Chloride Carbon Dioxide BUN Creatinine 0.4 L Glucose 108 H POC Glucose 172 H Lactic Acid Calcium AST Phosphorus Total Protein 5.3 L Albumin 2.1 L C-Reactive Protein Arterial Blood Glucose Arterial Blood Ionized Calcium Urine WBC (Auto) Crossmatch 01/18/20 01/19/20 01/19/20 18:22 00:15 11:30 WBC RBC Hgb Hct MCHC RDW Plt Count MCH Lymph % (Auto) Lymph # Lymph # (Auto) Seg Neutrophils % Seg Neuts % (Manual) Lymphocytes % (Manual) Seg Neutrophils # Seg Neutrophils # Man Basophils % (Manual) Nucleated RBC % Lymphocytes # (Manual) Monocytes # (Manual) Basophils # (Manual) PT INR Heparin Anti-Xa Level POC ABG pO2 ABG pH ABG Hemoglobin ABG Oxyhemoglobin ABG pO2 ABG HCO3 ABG O2 Saturation ABG Base Excess ABG Sodium ABG Potassium ABG Chloride ABG Glucose Oxyhemoglobin Sodium Potassium Chloride Carbon Dioxide BUN Creatinine Glucose POC Glucose 119 H 135 H 163 H Lactic Acid Calcium AST Phosphorus Total Protein Albumin C-Reactive Protein Arterial Blood Glucose Arterial Blood Ionized Calcium Urine WBC (Auto) Crossmatch 01/19/20 01/19/20 01/20/20 17:44 22:59 03:44 WBC 11.1 H RBC 2.77 L Hgb 8.4 L Hct 25.0 L MCHC RDW Plt Count MCH Lymph % (Auto) Lymph # Lymph # (Auto) Seg Neutrophils % 74.6 H Seg Neuts % (Manual) Lymphocytes % (Manual) Seg Neutrophils # 8.3 H Seg Neutrophils # Man Basophils % (Manual) Nucleated RBC % Lymphocytes # (Manual) Monocytes # (Manual) Basophils # (Manual) PT INR Heparin Anti-Xa Level POC ABG pO2 ABG pH ABG Hemoglobin ABG Oxyhemoglobin ABG pO2 ABG HCO3 ABG O2 Saturation ABG Base Excess ABG Sodium ABG Potassium ABG Chloride ABG Glucose Oxyhemoglobin Sodium Potassium Chloride Carbon Dioxide BUN Creatinine Glucose POC Glucose 161 H 182 H Lactic Acid Calcium AST Phosphorus Total Protein Albumin C-Reactive Protein Arterial Blood Glucose Arterial Blood Ionized Calcium Urine WBC (Auto) Crossmatch 01/20/20 01/21/20 01/21/20 03:44 00:07 05:51 WBC RBC 2.84 L Hgb 8.6 L Hct 25.5 L MCHC RDW Plt Count 463 H MCH Lymph % (Auto) Lymph # Lymph # (Auto) Seg Neutrophils % 76.9 H Seg Neuts % (Manual) Lymphocytes % (Manual) Seg Neutrophils # 7.8 H Seg Neutrophils # Man Basophils % (Manual) Nucleated RBC % Lymphocytes # (Manual) Monocytes # (Manual) Basophils # (Manual) PT INR Heparin Anti-Xa Level POC ABG pO2 ABG pH ABG Hemoglobin ABG Oxyhemoglobin ABG pO2 ABG HCO3 ABG O2 Saturation ABG Base Excess ABG Sodium ABG Potassium ABG Chloride ABG Glucose Oxyhemoglobin Sodium Potassium Chloride Carbon Dioxide BUN Creatinine 0.4 L Glucose POC Glucose 68 L Lactic Acid Calcium 7.9 L AST Phosphorus Total Protein 4.7 L Albumin 1.9 L C-Reactive Protein Arterial Blood Glucose Arterial Blood Ionized Calcium Urine WBC (Auto) Crossmatch 01/21/20 01/21/20 01/21/20 05:51 05:58 11:25 WBC RBC Hgb Hct MCHC RDW Plt Count MCH Lymph % (Auto) Lymph # Lymph # (Auto) Seg Neutrophils % Seg Neuts % (Manual) Lymphocytes % (Manual) Seg Neutrophils # Seg Neutrophils # Man Basophils % (Manual) Nucleated RBC % Lymphocytes # (Manual) Monocytes # (Manual) Basophils # (Manual) PT INR Heparin Anti-Xa Level POC ABG pO2 ABG pH ABG Hemoglobin ABG Oxyhemoglobin ABG pO2 ABG HCO3 ABG O2 Saturation ABG Base Excess ABG Sodium ABG Potassium ABG Chloride ABG Glucose Oxyhemoglobin Sodium Potassium Chloride Carbon Dioxide 20 L BUN Creatinine 0.5 L Glucose 130 H POC Glucose 185 H 163 H Lactic Acid Calcium 7.6 L AST Phosphorus Total Protein 5.0 L Albumin 1.9 L C-Reactive Protein Arterial Blood Glucose Arterial Blood Ionized Calcium Urine WBC (Auto) Crossmatch 01/21/20 01/21/20 01/22/20 16:22 21:17 01:28 WBC RBC 2.60 L Hgb 8.0 L Hct 23.3 L MCHC RDW Plt Count MCH Lymph % (Auto) Lymph # Lymph # (Auto) Seg Neutrophils % 74.8 H Seg Neuts % (Manual) Lymphocytes % (Manual) Seg Neutrophils # Seg Neutrophils # Man Basophils % (Manual) Nucleated RBC % Lymphocytes # (Manual) Monocytes # (Manual) Basophils # (Manual) PT INR Heparin Anti-Xa Level POC ABG pO2 ABG pH ABG Hemoglobin ABG Oxyhemoglobin ABG pO2 ABG HCO3 ABG O2 Saturation ABG Base Excess ABG Sodium ABG Potassium ABG Chloride ABG Glucose Oxyhemoglobin Sodium Potassium Chloride Carbon Dioxide BUN Creatinine Glucose POC Glucose 177 H 67 L Lactic Acid Calcium AST Phosphorus Total Protein Albumin C-Reactive Protein Arterial Blood Glucose Arterial Blood Ionized Calcium Urine WBC (Auto) Crossmatch 01/22/20 01/22/20 01/22/20 01:28 01:28 12:06 WBC RBC Hgb Hct MCHC RDW Plt Count MCH Lymph % (Auto) Lymph # Lymph # (Auto) Seg Neutrophils % Seg Neuts % (Manual) Lymphocytes % (Manual) Seg Neutrophils # Seg Neutrophils # Man Basophils % (Manual) Nucleated RBC % Lymphocytes # (Manual) Monocytes # (Manual) Basophils # (Manual) PT INR Heparin Anti-Xa Level POC ABG pO2 ABG pH ABG Hemoglobin ABG Oxyhemoglobin ABG pO2 ABG HCO3 ABG O2 Saturation ABG Base Excess ABG Sodium ABG Potassium ABG Chloride ABG Glucose Oxyhemoglobin Sodium Potassium Chloride 107.6 H Carbon Dioxide BUN Creatinine 0.4 L Glucose 152 H POC Glucose 203 H 140 H Lactic Acid Calcium 7.5 L AST Phosphorus Total Protein 4.0 L Albumin 2.0 L C-Reactive Protein Arterial Blood Glucose Arterial Blood Ionized Calcium Urine WBC (Auto) Crossmatch 01/22/20 01/22/20 01/23/20 16:24 22:55 06:10 WBC RBC 2.68 L Hgb 8.6 L Hct 24.1 L MCHC 36 H RDW Plt Count MCH Lymph % (Auto) Lymph # Lymph # (Auto) Seg Neutrophils % Seg Neuts % (Manual) 71.0 H Lymphocytes % (Manual) Seg Neutrophils # Seg Neutrophils # Man Basophils % (Manual) Nucleated RBC % Lymphocytes # (Manual) Monocytes # (Manual) Basophils # (Manual) PT INR Heparin Anti-Xa Level POC ABG pO2 ABG pH ABG Hemoglobin ABG Oxyhemoglobin ABG pO2 ABG HCO3 ABG O2 Saturation ABG Base Excess ABG Sodium ABG Potassium ABG Chloride ABG Glucose Oxyhemoglobin Sodium Potassium Chloride Carbon Dioxide BUN Creatinine Glucose POC Glucose 205 H 196 H Lactic Acid Calcium AST Phosphorus Total Protein Albumin C-Reactive Protein Arterial Blood Glucose Arterial Blood Ionized Calcium Urine WBC (Auto) Crossmatch 01/23/20 01/23/20 01/23/20 06:10 07:35 11:59 WBC RBC Hgb Hct MCHC RDW Plt Count MCH Lymph % (Auto) Lymph # Lymph # (Auto) Seg Neutrophils % Seg Neuts % (Manual) Lymphocytes % (Manual) Seg Neutrophils # Seg Neutrophils # Man Basophils % (Manual) Nucleated RBC % Lymphocytes # (Manual) Monocytes # (Manual) Basophils # (Manual) PT INR Heparin Anti-Xa Level POC ABG pO2 ABG pH ABG Hemoglobin ABG Oxyhemoglobin ABG pO2 ABG HCO3 ABG O2 Saturation ABG Base Excess ABG Sodium ABG Potassium ABG Chloride ABG Glucose Oxyhemoglobin Sodium Potassium Chloride 108.8 H Carbon Dioxide BUN Creatinine 0.4 L Glucose 105 H POC Glucose 111 H 123 H Lactic Acid Calcium 8.0 L AST Phosphorus Total Protein 4.9 L D Albumin 2.0 L C-Reactive Protein Arterial Blood Glucose Arterial Blood Ionized Calcium Urine WBC (Auto) Crossmatch 01/23/20 01/24/20 01/24/20 22:45 11:24 16:41 WBC RBC Hgb Hct MCHC RDW Plt Count MCH Lymph % (Auto) Lymph # Lymph # (Auto) Seg Neutrophils % Seg Neuts % (Manual) Lymphocytes % (Manual) Seg Neutrophils # Seg Neutrophils # Man Basophils % (Manual) Nucleated RBC % Lymphocytes # (Manual) Monocytes # (Manual) Basophils # (Manual) PT INR Heparin Anti-Xa Level POC ABG pO2 ABG pH ABG Hemoglobin ABG Oxyhemoglobin ABG pO2 ABG HCO3 ABG O2 Saturation ABG Base Excess ABG Sodium ABG Potassium ABG Chloride ABG Glucose Oxyhemoglobin Sodium Potassium Chloride Carbon Dioxide BUN Creatinine Glucose POC Glucose 180 H 182 H 177 H Lactic Acid Calcium AST Phosphorus Total Protein Albumin C-Reactive Protein Arterial Blood Glucose Arterial Blood Ionized Calcium Urine WBC (Auto) Crossmatch 01/24/20 01/25/20 01/25/20 23:11 07:12 11:35 WBC RBC Hgb Hct MCHC RDW Plt Count MCH Lymph % (Auto) Lymph # Lymph # (Auto) Seg Neutrophils % Seg Neuts % (Manual) Lymphocytes % (Manual) Seg Neutrophils # Seg Neutrophils # Man Basophils % (Manual) Nucleated RBC % Lymphocytes # (Manual) Monocytes # (Manual) Basophils # (Manual) PT INR Heparin Anti-Xa Level POC ABG pO2 ABG pH ABG Hemoglobin ABG Oxyhemoglobin ABG pO2 ABG HCO3 ABG O2 Saturation ABG Base Excess ABG Sodium ABG Potassium ABG Chloride ABG Glucose Oxyhemoglobin Sodium Potassium Chloride Carbon Dioxide BUN Creatinine Glucose POC Glucose 142 H 135 H 142 H Lactic Acid Calcium AST Phosphorus Total Protein Albumin C-Reactive Protein Arterial Blood Glucose Arterial Blood Ionized Calcium Urine WBC (Auto) Crossmatch 01/25/20 01/26/20 01/26/20 16:33 00:04 11:35 WBC RBC Hgb Hct MCHC RDW Plt Count MCH Lymph % (Auto) Lymph # Lymph # (Auto) Seg Neutrophils % Seg Neuts % (Manual) Lymphocytes % (Manual) Seg Neutrophils # Seg Neutrophils # Man Basophils % (Manual) Nucleated RBC % Lymphocytes # (Manual) Monocytes # (Manual) Basophils # (Manual) PT INR Heparin Anti-Xa Level POC ABG pO2 ABG pH ABG Hemoglobin ABG Oxyhemoglobin ABG pO2 ABG HCO3 ABG O2 Saturation ABG Base Excess ABG Sodium ABG Potassium ABG Chloride ABG Glucose Oxyhemoglobin Sodium Potassium Chloride Carbon Dioxide BUN Creatinine Glucose POC Glucose 247 H 233 H 200 H Lactic Acid Calcium AST Phosphorus Total Protein Albumin C-Reactive Protein Arterial Blood Glucose Arterial Blood Ionized Calcium Urine WBC (Auto) Crossmatch 01/26/20 01/26/20 01/26/20 16:30 16:30 17:19 WBC RBC Hgb 7.4 L Hct 22.0 L MCHC RDW Plt Count MCH Lymph % (Auto) Lymph # Lymph # (Auto) Seg Neutrophils % Seg Neuts % (Manual) Lymphocytes % (Manual) Seg Neutrophils # Seg Neutrophils # Man Basophils % (Manual) Nucleated RBC % Lymphocytes # (Manual) Monocytes # (Manual) Basophils # (Manual) PT 18.4 H INR 1.50 H Heparin Anti-Xa Level POC ABG pO2 ABG pH ABG Hemoglobin ABG Oxyhemoglobin ABG pO2 ABG HCO3 ABG O2 Saturation ABG Base Excess ABG Sodium ABG Potassium ABG Chloride ABG Glucose Oxyhemoglobin Sodium Potassium Chloride Carbon Dioxide BUN Creatinine Glucose POC Glucose 67 L Lactic Acid Calcium AST Phosphorus Total Protein Albumin C-Reactive Protein Arterial Blood Glucose Arterial Blood Ionized Calcium Urine WBC (Auto) Crossmatch 01/26/20 01/26/20 01/27/20 20:24 21:32 00:16 WBC RBC Hgb Hct MCHC RDW Plt Count MCH Lymph % (Auto) Lymph # Lymph # (Auto) Seg Neutrophils % Seg Neuts % (Manual) Lymphocytes % (Manual) Seg Neutrophils # Seg Neutrophils # Man Basophils % (Manual) Nucleated RBC % Lymphocytes # (Manual) Monocytes # (Manual) Basophils # (Manual) PT INR Heparin Anti-Xa Level POC ABG pO2 51.8 L ABG pH ABG Hemoglobin 8.5 L ABG Oxyhemoglobin 84.7 L ABG pO2 ABG HCO3 ABG O2 Saturation ABG Base Excess ABG Sodium ABG Potassium ABG Chloride ABG Glucose Oxyhemoglobin Sodium Potassium Chloride Carbon Dioxide BUN Creatinine Glucose POC Glucose 162 H 141 H Lactic Acid Calcium AST Phosphorus Total Protein Albumin C-Reactive Protein Arterial Blood Glucose Arterial Blood Ionized Calcium Urine WBC (Auto) Crossmatch 01/27/20 01/27/20 01/27/20 01:42 02:18 05:57 WBC RBC Hgb Hct MCHC RDW Plt Count MCH Lymph % (Auto) Lymph # Lymph # (Auto) Seg Neutrophils % Seg Neuts % (Manual) Lymphocytes % (Manual) Seg Neutrophils # Seg Neutrophils # Man Basophils % (Manual) Nucleated RBC % Lymphocytes # (Manual) Monocytes # (Manual) Basophils # (Manual) PT INR Heparin Anti-Xa Level 2.00 H POC ABG pO2 ABG pH ABG Hemoglobin ABG Oxyhemoglobin ABG pO2 ABG HCO3 ABG O2 Saturation ABG Base Excess ABG Sodium ABG Potassium ABG Chloride ABG Glucose Oxyhemoglobin Sodium Potassium Chloride Carbon Dioxide BUN Creatinine Glucose POC Glucose 183 H 124 H Lactic Acid Calcium AST Phosphorus Total Protein Albumin C-Reactive Protein Arterial Blood Glucose Arterial Blood Ionized Calcium Urine WBC (Auto) Crossmatch 01/27/20 01/27/20 01/27/20 06:30 06:30 12:23 WBC RBC 2.75 L Hgb 8.4 L Hct 24.9 L MCHC RDW 16.0 H Plt Count 474 H MCH Lymph % (Auto) 12.7 L Lymph # Lymph # (Auto) Seg Neutrophils % 83.2 H Seg Neuts % (Manual) Lymphocytes % (Manual) Seg Neutrophils # 8.4 H Seg Neutrophils # Man Basophils % (Manual) Nucleated RBC % Lymphocytes # (Manual) Monocytes # (Manual) Basophils # (Manual) PT INR Heparin Anti-Xa Level POC ABG pO2 ABG pH ABG Hemoglobin ABG Oxyhemoglobin ABG pO2 ABG HCO3 ABG O2 Saturation ABG Base Excess ABG Sodium ABG Potassium ABG Chloride ABG Glucose Oxyhemoglobin Sodium Potassium 3.5 L Chloride 110.2 H Carbon Dioxide BUN Creatinine 0.4 L Glucose 101 H POC Glucose 126 H Lactic Acid Calcium 7.8 L AST Phosphorus Total Protein Albumin C-Reactive Protein Arterial Blood Glucose Arterial Blood Ionized Calcium Urine WBC (Auto) Crossmatch 01/27/20 01/27/20 01/28/20 17:31 23:40 00:00 WBC RBC Hgb Hct MCHC RDW Plt Count MCH Lymph % (Auto) Lymph # Lymph # (Auto) Seg Neutrophils % Seg Neuts % (Manual) Lymphocytes % (Manual) Seg Neutrophils # Seg Neutrophils # Man Basophils % (Manual) Nucleated RBC % Lymphocytes # (Manual) Monocytes # (Manual) Basophils # (Manual) PT INR Heparin Anti-Xa Level 2.00 H POC ABG pO2 ABG pH ABG Hemoglobin ABG Oxyhemoglobin ABG pO2 ABG HCO3 ABG O2 Saturation ABG Base Excess ABG Sodium ABG Potassium ABG Chloride ABG Glucose Oxyhemoglobin Sodium Potassium Chloride Carbon Dioxide BUN Creatinine Glucose POC Glucose 133 H 136 H Lactic Acid Calcium AST Phosphorus Total Protein Albumin C-Reactive Protein Arterial Blood Glucose Arterial Blood Ionized Calcium Urine WBC (Auto) Crossmatch 01/28/20 01/28/20 01/28/20 04:26 04:26 05:35 WBC RBC Hgb 9.6 L Hct 28.5 L MCHC RDW Plt Count 508 H MCH Lymph % (Auto) Lymph # Lymph # (Auto) Seg Neutrophils % Seg Neuts % (Manual) Lymphocytes % (Manual) Seg Neutrophils # Seg Neutrophils # Man Basophils % (Manual) Nucleated RBC % Lymphocytes # (Manual) Monocytes # (Manual) Basophils # (Manual) PT INR Heparin Anti-Xa Level POC ABG pO2 ABG pH ABG Hemoglobin ABG Oxyhemoglobin ABG pO2 ABG HCO3 ABG O2 Saturation ABG Base Excess ABG Sodium ABG Potassium ABG Chloride ABG Glucose Oxyhemoglobin Sodium Potassium Chloride Carbon Dioxide 19 L BUN 20 H Creatinine 0.5 L Glucose 103 H POC Glucose 135 H Lactic Acid Calcium 7.9 L AST Phosphorus Total Protein Albumin C-Reactive Protein Arterial Blood Glucose Arterial Blood Ionized Calcium Urine WBC (Auto) Crossmatch 01/28/20 01/28/20 01/28/20 08:50 11:10 11:51 WBC RBC Hgb Hct MCHC RDW Plt Count MCH Lymph % (Auto) Lymph # Lymph # (Auto) Seg Neutrophils % Seg Neuts % (Manual) Lymphocytes % (Manual) Seg Neutrophils # Seg Neutrophils # Man Basophils % (Manual) Nucleated RBC % Lymphocytes # (Manual) Monocytes # (Manual) Basophils # (Manual) PT INR Heparin Anti-Xa Level 0.74 H POC ABG pO2 67.2 L ABG pH ABG Hemoglobin 9.3 L ABG Oxyhemoglobin ABG pO2 ABG HCO3 ABG O2 Saturation ABG Base Excess ABG Sodium ABG Potassium ABG Chloride ABG Glucose Oxyhemoglobin Sodium Potassium Chloride Carbon Dioxide BUN Creatinine Glucose POC Glucose 160 H Lactic Acid Calcium AST Phosphorus Total Protein Albumin C-Reactive Protein Arterial Blood Glucose Arterial Blood Ionized Calcium Urine WBC (Auto) Crossmatch 01/28/20 01/28/20 01/29/20 17:19 23:53 03:52 WBC RBC Hgb Hct MCHC RDW Plt Count MCH Lymph % (Auto) Lymph # Lymph # (Auto) Seg Neutrophils % Seg Neuts % (Manual) Lymphocytes % (Manual) Seg Neutrophils # Seg Neutrophils # Man Basophils % (Manual) Nucleated RBC % Lymphocytes # (Manual) Monocytes # (Manual) Basophils # (Manual) PT INR Heparin Anti-Xa Level POC ABG pO2 ABG pH 7.510 H ABG Hemoglobin 7.3 L ABG Oxyhemoglobin ABG pO2 357.0 H ABG HCO3 19.6 L ABG O2 Saturation 99.6 H ABG Base Excess -2.9 L ABG Sodium ABG Potassium ABG Chloride ABG Glucose Oxyhemoglobin Sodium Potassium Chloride Carbon Dioxide BUN Creatinine Glucose POC Glucose 177 H 142 H Lactic Acid Calcium AST Phosphorus Total Protein Albumin C-Reactive Protein Arterial Blood Glucose Arterial Blood Ionized Calcium Urine WBC (Auto) Crossmatch 01/29/20 01/29/20 01/29/20 04:58 04:58 06:01 WBC 13.1 H RBC 2.75 L Hgb 8.6 L Hct 25.6 L MCHC RDW 17.7 H Plt Count MCH Lymph % (Auto) Lymph # Lymph # (Auto) Seg Neutrophils % Seg Neuts % (Manual) 91.0 H Lymphocytes % (Manual) 6.0 L Seg Neutrophils # Seg Neutrophils # Man 11.9 H Basophils % (Manual) Nucleated RBC % 1.0 H Lymphocytes # (Manual) 0.8 L Monocytes # (Manual) Basophils # (Manual) PT INR Heparin Anti-Xa Level POC ABG pO2 ABG pH ABG Hemoglobin ABG Oxyhemoglobin ABG pO2 ABG HCO3 ABG O2 Saturation ABG Base Excess ABG Sodium ABG Potassium ABG Chloride ABG Glucose Oxyhemoglobin Sodium 148 H Potassium 3.5 L D Chloride 113.2 H Carbon Dioxide 21 L BUN 20 H Creatinine Glucose 137 H POC Glucose 167 H Lactic Acid Calcium 8.1 L AST Phosphorus Total Protein Albumin C-Reactive Protein Arterial Blood Glucose Arterial Blood Ionized Calcium Urine WBC (Auto) Crossmatch 01/29/20 01/29/20 01/29/20 11:45 17:52 23:49 WBC RBC Hgb Hct MCHC RDW Plt Count MCH Lymph % (Auto) Lymph # Lymph # (Auto) Seg Neutrophils % Seg Neuts % (Manual) Lymphocytes % (Manual) Seg Neutrophils # Seg Neutrophils # Man Basophils % (Manual) Nucleated RBC % Lymphocytes # (Manual) Monocytes # (Manual) Basophils # (Manual) PT INR Heparin Anti-Xa Level POC ABG pO2 ABG pH ABG Hemoglobin ABG Oxyhemoglobin ABG pO2 ABG HCO3 ABG O2 Saturation ABG Base Excess ABG Sodium ABG Potassium ABG Chloride ABG Glucose Oxyhemoglobin Sodium Potassium Chloride Carbon Dioxide BUN Creatinine Glucose POC Glucose 185 H 226 H 141 H Lactic Acid Calcium AST Phosphorus Total Protein Albumin C-Reactive Protein Arterial Blood Glucose Arterial Blood Ionized Calcium Urine WBC (Auto) Crossmatch 01/29/20 01/30/20 01/30/20 Unknown 03:24 04:00 WBC RBC Hgb 7.8 L Hct 23.5 L MCHC RDW Plt Count MCH Lymph % (Auto) Lymph # Lymph # (Auto) Seg Neutrophils % Seg Neuts % (Manual) Lymphocytes % (Manual) Seg Neutrophils # Seg Neutrophils # Man Basophils % (Manual) Nucleated RBC % Lymphocytes # (Manual) Monocytes # (Manual) Basophils # (Manual) PT INR Heparin Anti-Xa Level POC ABG pO2 ABG pH 7.485 H ABG Hemoglobin 6.7 L ABG Oxyhemoglobin ABG pO2 102.0 H ABG HCO3 ABG O2 Saturation ABG Base Excess ABG Sodium ABG Potassium ABG Chloride ABG Glucose Oxyhemoglobin Sodium Potassium Chloride Carbon Dioxide BUN Creatinine Glucose POC Glucose Lactic Acid Calcium AST Phosphorus Total Protein Albumin C-Reactive Protein 14.80 H Arterial Blood Glucose Arterial Blood Ionized Calcium Urine WBC (Auto) Crossmatch 01/30/20 01/30/20 01/30/20 05:50 11:15 17:07 WBC RBC Hgb Hct MCHC RDW Plt Count MCH Lymph % (Auto) Lymph # Lymph # (Auto) Seg Neutrophils % Seg Neuts % (Manual) Lymphocytes % (Manual) Seg Neutrophils # Seg Neutrophils # Man Basophils % (Manual) Nucleated RBC % Lymphocytes # (Manual) Monocytes # (Manual) Basophils # (Manual) PT INR Heparin Anti-Xa Level POC ABG pO2 ABG pH ABG Hemoglobin ABG Oxyhemoglobin ABG pO2 ABG HCO3 ABG O2 Saturation ABG Base Excess ABG Sodium ABG Potassium ABG Chloride ABG Glucose Oxyhemoglobin Sodium Potassium Chloride Carbon Dioxide BUN Creatinine Glucose POC Glucose 122 H 207 H 124 H Lactic Acid Calcium AST Phosphorus Total Protein Albumin C-Reactive Protein Arterial Blood Glucose Arterial Blood Ionized Calcium Urine WBC (Auto) Crossmatch 01/30/20 01/31/20 01/31/20 17:08 00:10 04:52 WBC RBC Hgb Hct MCHC RDW Plt Count MCH Lymph % (Auto) Lymph # Lymph # (Auto) Seg Neutrophils % Seg Neuts % (Manual) Lymphocytes % (Manual) Seg Neutrophils # Seg Neutrophils # Man Basophils % (Manual) Nucleated RBC % Lymphocytes # (Manual) Monocytes # (Manual) Basophils # (Manual) PT INR Heparin Anti-Xa Level POC ABG pO2 ABG pH 7.504 H 7.486 H ABG Hemoglobin 7.4 L 6.2 L ABG Oxyhemoglobin ABG pO2 169.2 H 121.7 H ABG HCO3 27.1 H ABG O2 Saturation 99.1 H ABG Base Excess 3.4 H ABG Sodium ABG Potassium ABG Chloride ABG Glucose Oxyhemoglobin Sodium Potassium Chloride Carbon Dioxide BUN Creatinine Glucose POC Glucose 191 H Lactic Acid Calcium AST Phosphorus Total Protein Albumin C-Reactive Protein Arterial Blood Glucose Arterial Blood Ionized Calcium Urine WBC (Auto) Crossmatch 01/31/20 01/31/20 01/31/20 05:37 11:59 12:40 WBC RBC 2.41 L Hgb 7.5 L Hct 22.3 L MCHC RDW 22.2 H Plt Count MCH Lymph % (Auto) Lymph # Lymph # (Auto) Seg Neutrophils % Seg Neuts % (Manual) 94.0 H Lymphocytes % (Manual) 2.0 L Seg Neutrophils # Seg Neutrophils # Man 9.4 H Basophils % (Manual) Nucleated RBC % Lymphocytes # (Manual) 0.2 L Monocytes # (Manual) Basophils # (Manual) PT INR Heparin Anti-Xa Level POC ABG pO2 ABG pH ABG Hemoglobin ABG Oxyhemoglobin ABG pO2 ABG HCO3 ABG O2 Saturation ABG Base Excess ABG Sodium ABG Potassium ABG Chloride ABG Glucose Oxyhemoglobin Sodium Potassium Chloride Carbon Dioxide BUN Creatinine Glucose POC Glucose 175 H 220 H Lactic Acid Calcium AST Phosphorus Total Protein Albumin C-Reactive Protein Arterial Blood Glucose Arterial Blood Ionized Calcium Urine WBC (Auto) Crossmatch 01/31/20 01/31/20 01/31/20 12:40 14:40 18:18 WBC RBC Hgb Hct MCHC RDW Plt Count MCH Lymph % (Auto) Lymph # Lymph # (Auto) Seg Neutrophils % Seg Neuts % (Manual) Lymphocytes % (Manual) Seg Neutrophils # Seg Neutrophils # Man Basophils % (Manual) Nucleated RBC % Lymphocytes # (Manual) Monocytes # (Manual) Basophils # (Manual) PT INR Heparin Anti-Xa Level POC ABG pO2 124.7 H ABG pH 7.542 H ABG Hemoglobin 7.8 L ABG Oxyhemoglobin ABG pO2 ABG HCO3 ABG O2 Saturation ABG Base Excess ABG Sodium ABG Potassium ABG Chloride ABG Glucose Oxyhemoglobin Sodium 151 H Potassium 2.1 L* D Chloride 108.9 H Carbon Dioxide BUN 22 H Creatinine Glucose 194 H POC Glucose 181 H Lactic Acid Calcium 8.1 L AST Phosphorus Total Protein 4.8 L Albumin 2.3 L C-Reactive Protein Arterial Blood Glucose Arterial Blood Ionized Calcium Urine WBC (Auto) Crossmatch 02/01/20 02/01/20 02/01/20 00:11 03:14 04:32 WBC 11.9 H RBC 2.47 L Hgb 7.6 L Hct 22.8 L MCHC RDW 22.7 H Plt Count MCH Lymph % (Auto) Lymph # Lymph # (Auto) Seg Neutrophils % Seg Neuts % (Manual) 90.0 H Lymphocytes % (Manual) 5.0 L Seg Neutrophils # Seg Neutrophils # Man 10.7 H Basophils % (Manual) Nucleated RBC % Lymphocytes # (Manual) 0.6 L Monocytes # (Manual) Basophils # (Manual) PT INR Heparin Anti-Xa Level POC ABG pO2 ABG pH 7.564 H ABG Hemoglobin 7.6 L ABG Oxyhemoglobin ABG pO2 124.1 H ABG HCO3 29.6 H ABG O2 Saturation ABG Base Excess 7.0 H ABG Sodium ABG Potassium ABG Chloride ABG Glucose Oxyhemoglobin Sodium Potassium Chloride Carbon Dioxide BUN Creatinine Glucose POC Glucose 190 H Lactic Acid Calcium AST Phosphorus Total Protein Albumin C-Reactive Protein Arterial Blood Glucose Arterial Blood Ionized Calcium Urine WBC (Auto) Crossmatch 02/01/20 02/01/20 02/01/20 04:32 05:28 11:56 WBC RBC Hgb Hct MCHC RDW Plt Count MCH Lymph % (Auto) Lymph # Lymph # (Auto) Seg Neutrophils % Seg Neuts % (Manual) Lymphocytes % (Manual) Seg Neutrophils # Seg Neutrophils # Man Basophils % (Manual) Nucleated RBC % Lymphocytes # (Manual) Monocytes # (Manual) Basophils # (Manual) PT INR Heparin Anti-Xa Level POC ABG pO2 ABG pH ABG Hemoglobin ABG Oxyhemoglobin ABG pO2 ABG HCO3 ABG O2 Saturation ABG Base Excess ABG Sodium ABG Potassium ABG Chloride ABG Glucose Oxyhemoglobin Sodium 149 H Potassium 2.6 L* D Chloride Carbon Dioxide 33 H BUN 23 H Creatinine 0.5 L Glucose 174 H POC Glucose 187 H 195 H Lactic Acid Calcium 8.0 L AST Phosphorus 1.60 L Total Protein Albumin C-Reactive Protein Arterial Blood Glucose Arterial Blood Ionized Calcium Urine WBC (Auto) Crossmatch 02/01/20 02/01/20 02/02/20 18:15 23:35 04:33 WBC RBC Hgb Hct MCHC RDW Plt Count MCH Lymph % (Auto) Lymph # Lymph # (Auto) Seg Neutrophils % Seg Neuts % (Manual) Lymphocytes % (Manual) Seg Neutrophils # Seg Neutrophils # Man Basophils % (Manual) Nucleated RBC % Lymphocytes # (Manual) Monocytes # (Manual) Basophils # (Manual) PT INR Heparin Anti-Xa Level POC ABG pO2 ABG pH 7.549 H ABG Hemoglobin 9.8 L ABG Oxyhemoglobin ABG pO2 ABG HCO3 ABG O2 Saturation ABG Base Excess ABG Sodium ABG Potassium ABG Chloride ABG Glucose Oxyhemoglobin Sodium Potassium Chloride Carbon Dioxide BUN Creatinine Glucose POC Glucose 226 H 252 H Lactic Acid Calcium AST Phosphorus Total Protein Albumin C-Reactive Protein Arterial Blood Glucose Arterial Blood Ionized Calcium Urine WBC (Auto) Crossmatch 02/02/20 02/02/20 02/02/20 05:25 05:25 05:40 WBC 15.5 H RBC 2.43 L Hgb 7.6 L Hct 22.9 L MCHC RDW 23.6 H Plt Count MCH Lymph % (Auto) Lymph # Lymph # (Auto) Seg Neutrophils % Seg Neuts % (Manual) 89.0 H Lymphocytes % (Manual) 3.0 L Seg Neutrophils # Seg Neutrophils # Man 13.8 H Basophils % (Manual) Nucleated RBC % Lymphocytes # (Manual) 0.5 L Monocytes # (Manual) 0.9 H Basophils # (Manual) PT INR Heparin Anti-Xa Level POC ABG pO2 ABG pH ABG Hemoglobin ABG Oxyhemoglobin ABG pO2 ABG HCO3 ABG O2 Saturation ABG Base Excess ABG Sodium ABG Potassium ABG Chloride ABG Glucose Oxyhemoglobin Sodium Potassium 2.6 L* Chloride Carbon Dioxide 33 H BUN 26 H Creatinine Glucose 175 H POC Glucose 181 H Lactic Acid Calcium 7.9 L AST Phosphorus Total Protein Albumin C-Reactive Protein Arterial Blood Glucose Arterial Blood Ionized Calcium Urine WBC (Auto) Crossmatch 02/02/20 02/02/20 02/02/20 11:55 14:45 17:18 WBC RBC Hgb Hct MCHC RDW Plt Count MCH Lymph % (Auto) Lymph # Lymph # (Auto) Seg Neutrophils % Seg Neuts % (Manual) Lymphocytes % (Manual) Seg Neutrophils # Seg Neutrophils # Man Basophils % (Manual) Nucleated RBC % Lymphocytes # (Manual) Monocytes # (Manual) Basophils # (Manual) PT INR Heparin Anti-Xa Level POC ABG pO2 ABG pH 7.56 H ABG Hemoglobin 7.6 L ABG Oxyhemoglobin ABG pO2 ABG HCO3 ABG O2 Saturation ABG Base Excess ABG Sodium ABG Potassium ABG Chloride ABG Glucose Oxyhemoglobin Sodium Potassium Chloride Carbon Dioxide BUN Creatinine Glucose POC Glucose 226 H 227 H Lactic Acid Calcium AST Phosphorus Total Protein Albumin C-Reactive Protein Arterial Blood Glucose Arterial Blood Ionized Calcium Urine WBC (Auto) Crossmatch 02/02/20 02/03/20 02/03/20 20:54 00:02 05:14 WBC 18.7 H RBC 2.45 L Hgb 7.6 L Hct 23.2 L MCHC RDW 23.5 H Plt Count MCH Lymph % (Auto) Lymph # Lymph # (Auto) Seg Neutrophils % Seg Neuts % (Manual) 94.0 H Lymphocytes % (Manual) 3.0 L Seg Neutrophils # Seg Neutrophils # Man 17.6 H Basophils % (Manual) Nucleated RBC % Lymphocytes # (Manual) 0.6 L Monocytes # (Manual) Basophils # (Manual) PT INR Heparin Anti-Xa Level POC ABG pO2 ABG pH ABG Hemoglobin ABG Oxyhemoglobin ABG pO2 ABG HCO3 ABG O2 Saturation ABG Base Excess ABG Sodium ABG Potassium ABG Chloride ABG Glucose Oxyhemoglobin Sodium Potassium 3.2 L D Chloride Carbon Dioxide BUN Creatinine Glucose POC Glucose 204 H Lactic Acid Calcium AST Phosphorus Total Protein Albumin C-Reactive Protein Arterial Blood Glucose Arterial Blood Ionized Calcium Urine WBC (Auto) Crossmatch 02/03/20 02/03/20 02/03/20 05:14 05:14 05:20 WBC RBC Hgb Hct MCHC RDW Plt Count MCH Lymph % (Auto) Lymph # Lymph # (Auto) Seg Neutrophils % Seg Neuts % (Manual) Lymphocytes % (Manual) Seg Neutrophils # Seg Neutrophils # Man Basophils % (Manual) Nucleated RBC % Lymphocytes # (Manual) Monocytes # (Manual) Basophils # (Manual) PT INR Heparin Anti-Xa Level POC ABG pO2 ABG pH ABG Hemoglobin ABG Oxyhemoglobin ABG pO2 ABG HCO3 ABG O2 Saturation ABG Base Excess ABG Sodium ABG Potassium ABG Chloride ABG Glucose Oxyhemoglobin Sodium Potassium 3.1 L Chloride Carbon Dioxide 33 H BUN 29 H Creatinine 0.5 L Glucose 160 H POC Glucose 146 H Lactic Acid Calcium 7.9 L AST Phosphorus 2.30 L Total Protein 4.8 L Albumin 2.4 L C-Reactive Protein Arterial Blood Glucose Arterial Blood Ionized Calcium Urine WBC (Auto) Crossmatch 02/03/20 02/03/20 02/03/20 12:35 18:14 23:26 WBC RBC Hgb Hct MCHC RDW Plt Count MCH Lymph % (Auto) Lymph # Lymph # (Auto) Seg Neutrophils % Seg Neuts % (Manual) Lymphocytes % (Manual) Seg Neutrophils # Seg Neutrophils # Man Basophils % (Manual) Nucleated RBC % Lymphocytes # (Manual) Monocytes # (Manual) Basophils # (Manual) PT INR Heparin Anti-Xa Level POC ABG pO2 ABG pH ABG Hemoglobin ABG Oxyhemoglobin ABG pO2 ABG HCO3 ABG O2 Saturation ABG Base Excess ABG Sodium ABG Potassium ABG Chloride ABG Glucose Oxyhemoglobin Sodium Potassium Chloride Carbon Dioxide BUN Creatinine Glucose POC Glucose 219 H 248 H 173 H Lactic Acid Calcium AST Phosphorus Total Protein Albumin C-Reactive Protein Arterial Blood Glucose Arterial Blood Ionized Calcium Urine WBC (Auto) Crossmatch 02/04/20 02/04/20 02/04/20 05:34 05:36 06:51 WBC RBC Hgb Hct MCHC RDW Plt Count MCH Lymph % (Auto) Lymph # Lymph # (Auto) Seg Neutrophils % Seg Neuts % (Manual) Lymphocytes % (Manual) Seg Neutrophils # Seg Neutrophils # Man Basophils % (Manual) Nucleated RBC % Lymphocytes # (Manual) Monocytes # (Manual) Basophils # (Manual) PT INR Heparin Anti-Xa Level POC ABG pO2 ABG pH ABG Hemoglobin ABG Oxyhemoglobin ABG pO2 ABG HCO3 ABG O2 Saturation ABG Base Excess ABG Sodium ABG Potassium ABG Chloride ABG Glucose Oxyhemoglobin Sodium Potassium Chloride Carbon Dioxide BUN Creatinine Glucose POC Glucose 56 L 64 L 127 H Lactic Acid Calcium AST Phosphorus Total Protein Albumin C-Reactive Protein Arterial Blood Glucose Arterial Blood Ionized Calcium Urine WBC (Auto) Crossmatch 02/04/20 02/04/20 02/04/20 11:57 13:42 13:53 WBC 19.2 H RBC 2.48 L Hgb 7.8 L Hct 23.5 L MCHC RDW 24.2 H Plt Count MCH Lymph % (Auto) Lymph # Lymph # (Auto) Seg Neutrophils % Seg Neuts % (Manual) 97.0 H Lymphocytes % (Manual) 2.0 L Seg Neutrophils # Seg Neutrophils # Man 18.6 H Basophils % (Manual) Nucleated RBC % Lymphocytes # (Manual) 0.4 L Monocytes # (Manual) Basophils # (Manual) PT INR Heparin Anti-Xa Level POC ABG pO2 118.2 H ABG pH 7.525 H ABG Hemoglobin 8.7 L ABG Oxyhemoglobin ABG pO2 ABG HCO3 ABG O2 Saturation ABG Base Excess ABG Sodium ABG Potassium 2.8 L ABG Chloride ABG Glucose 185 H Oxyhemoglobin Sodium Potassium Chloride Carbon Dioxide BUN Creatinine Glucose POC Glucose 224 H Lactic Acid Calcium AST Phosphorus Total Protein Albumin C-Reactive Protein Arterial Blood Glucose 185 H Arterial Blood Ionized Calcium 4.5 L Urine WBC (Auto) Crossmatch 02/04/20 02/04/20 02/04/20 13:53 18:15 23:35 WBC RBC Hgb Hct MCHC RDW Plt Count MCH Lymph % (Auto) Lymph # Lymph # (Auto) Seg Neutrophils % Seg Neuts % (Manual) Lymphocytes % (Manual) Seg Neutrophils # Seg Neutrophils # Man Basophils % (Manual) Nucleated RBC % Lymphocytes # (Manual) Monocytes # (Manual) Basophils # (Manual) PT INR Heparin Anti-Xa Level POC ABG pO2 ABG pH ABG Hemoglobin ABG Oxyhemoglobin ABG pO2 ABG HCO3 ABG O2 Saturation ABG Base Excess ABG Sodium ABG Potassium ABG Chloride ABG Glucose Oxyhemoglobin Sodium 147 H Potassium 2.8 L* Chloride Carbon Dioxide 38 H BUN 33 H Creatinine 0.5 L Glucose 202 H POC Glucose 215 H 197 H Lactic Acid Calcium AST Phosphorus Total Protein Albumin C-Reactive Protein Arterial Blood Glucose Arterial Blood Ionized Calcium Urine WBC (Auto) Crossmatch 02/05/20 02/05/20 02/05/20 01:03 04:00 04:00 WBC 26.7 H RBC 2.59 L Hgb 8.1 L Hct 24.6 L MCHC RDW 24.1 H Plt Count MCH Lymph % (Auto) 1.6 L Lymph # Lymph # (Auto) 0.4 L Seg Neutrophils % Seg Neuts % (Manual) Lymphocytes % (Manual) Seg Neutrophils # 25.9 H Seg Neutrophils # Man Basophils % (Manual) Nucleated RBC % Lymphocytes # (Manual) Monocytes # (Manual) Basophils # (Manual) PT INR Heparin Anti-Xa Level POC ABG pO2 ABG pH ABG Hemoglobin 7.1 L ABG Oxyhemoglobin ABG pO2 50.7 L ABG HCO3 29.6 H ABG O2 Saturation 82.7 L ABG Base Excess 4.8 H ABG Sodium ABG Potassium ABG Chloride ABG Glucose Oxyhemoglobin 81.0 L Sodium 146 H Potassium Chloride Carbon Dioxide 32 H BUN 35 H Creatinine 0.5 L Glucose 226 H POC Glucose Lactic Acid Calcium AST Phosphorus Total Protein 5.1 L Albumin 2.2 L C-Reactive Protein Arterial Blood Glucose Arterial Blood Ionized Calcium Urine WBC (Auto) Crossmatch 02/05/20 02/05/20 02/06/20 05:32 17:56 00:19 WBC RBC Hgb Hct MCHC RDW Plt Count MCH Lymph % (Auto) Lymph # Lymph # (Auto) Seg Neutrophils % Seg Neuts % (Manual) Lymphocytes % (Manual) Seg Neutrophils # Seg Neutrophils # Man Basophils % (Manual) Nucleated RBC % Lymphocytes # (Manual) Monocytes # (Manual) Basophils # (Manual) PT INR Heparin Anti-Xa Level POC ABG pO2 ABG pH ABG Hemoglobin ABG Oxyhemoglobin ABG pO2 ABG HCO3 ABG O2 Saturation ABG Base Excess ABG Sodium ABG Potassium ABG Chloride ABG Glucose Oxyhemoglobin Sodium Potassium Chloride Carbon Dioxide BUN Creatinine Glucose POC Glucose 239 H 175 H 309 H Lactic Acid Calcium AST Phosphorus Total Protein Albumin C-Reactive Protein Arterial Blood Glucose Arterial Blood Ionized Calcium Urine WBC (Auto) Crossmatch 02/06/20 02/06/20 02/06/20 04:26 04:27 05:11 WBC RBC Hgb Hct MCHC RDW Plt Count MCH Lymph % (Auto) Lymph # Lymph # (Auto) Seg Neutrophils % Seg Neuts % (Manual) Lymphocytes % (Manual) Seg Neutrophils # Seg Neutrophils # Man Basophils % (Manual) Nucleated RBC % Lymphocytes # (Manual) Monocytes # (Manual) Basophils # (Manual) PT INR Heparin Anti-Xa Level POC ABG pO2 175.3 H 157.2 H ABG pH 7.502 H 7.551 H ABG Hemoglobin 10.8 L 7.3 L ABG Oxyhemoglobin 98.3 H ABG pO2 ABG HCO3 ABG O2 Saturation ABG Base Excess ABG Sodium ABG Potassium 3.3 L ABG Chloride 109.0 H ABG Glucose 148 H Oxyhemoglobin Sodium 148 H Potassium 3.0 L Chloride 107.3 H Carbon Dioxide 33 H BUN 33 H Creatinine 0.5 L Glucose 283 H POC Glucose Lactic Acid Calcium 7.9 L AST Phosphorus Total Protein 3.6 L D Albumin 1.2 L C-Reactive Protein Arterial Blood Glucose 148 H Arterial Blood Ionized Calcium Urine WBC (Auto) Crossmatch 02/06/20 02/06/20 02/06/20 05:40 08:45 11:52 WBC 16.3 H RBC 2.12 L Hgb 6.6 L Hct 20.3 L MCHC RDW 24.4 H Plt Count MCH Lymph % (Auto) Lymph # Lymph # (Auto) Seg Neutrophils % Seg Neuts % (Manual) 98.0 H Lymphocytes % (Manual) 1.0 L Seg Neutrophils # Seg Neutrophils # Man 16.0 H Basophils % (Manual) Nucleated RBC % Lymphocytes # (Manual) 0.2 L Monocytes # (Manual) Basophils # (Manual) PT INR Heparin Anti-Xa Level POC ABG pO2 ABG pH ABG Hemoglobin ABG Oxyhemoglobin ABG pO2 ABG HCO3 ABG O2 Saturation ABG Base Excess ABG Sodium ABG Potassium ABG Chloride ABG Glucose Oxyhemoglobin Sodium Potassium Chloride Carbon Dioxide BUN Creatinine Glucose POC Glucose 347 H 132 H Lactic Acid Calcium AST Phosphorus Total Protein Albumin C-Reactive Protein Arterial Blood Glucose Arterial Blood Ionized Calcium Urine WBC (Auto) Crossmatch 02/06/20 02/07/20 02/07/20 18:26 00:08 05:41 WBC RBC Hgb Hct MCHC RDW Plt Count MCH Lymph % (Auto) Lymph # Lymph # (Auto) Seg Neutrophils % Seg Neuts % (Manual) Lymphocytes % (Manual) Seg Neutrophils # Seg Neutrophils # Man Basophils % (Manual) Nucleated RBC % Lymphocytes # (Manual) Monocytes # (Manual) Basophils # (Manual) PT INR Heparin Anti-Xa Level POC ABG pO2 ABG pH ABG Hemoglobin ABG Oxyhemoglobin ABG pO2 ABG HCO3 ABG O2 Saturation ABG Base Excess ABG Sodium ABG Potassium ABG Chloride ABG Glucose Oxyhemoglobin Sodium Potassium Chloride Carbon Dioxide BUN Creatinine Glucose POC Glucose 114 H 111 H 164 H Lactic Acid Calcium AST Phosphorus Total Protein Albumin C-Reactive Protein Arterial Blood Glucose Arterial Blood Ionized Calcium Urine WBC (Auto) Crossmatch 02/07/20 02/07/20 02/07/20 11:49 17:56 23:27 WBC RBC Hgb Hct MCHC RDW Plt Count MCH Lymph % (Auto) Lymph # Lymph # (Auto) Seg Neutrophils % Seg Neuts % (Manual) Lymphocytes % (Manual) Seg Neutrophils # Seg Neutrophils # Man Basophils % (Manual) Nucleated RBC % Lymphocytes # (Manual) Monocytes # (Manual) Basophils # (Manual) PT INR Heparin Anti-Xa Level POC ABG pO2 ABG pH ABG Hemoglobin ABG Oxyhemoglobin ABG pO2 ABG HCO3 ABG O2 Saturation ABG Base Excess ABG Sodium ABG Potassium ABG Chloride ABG Glucose Oxyhemoglobin Sodium Potassium Chloride Carbon Dioxide BUN Creatinine Glucose POC Glucose 146 H 140 H 164 H Lactic Acid Calcium AST Phosphorus Total Protein Albumin C-Reactive Protein Arterial Blood Glucose Arterial Blood Ionized Calcium Urine WBC (Auto) Crossmatch 02/08/20 02/08/20 02/08/20 03:55 04:46 04:46 WBC RBC 2.30 L Hgb 7.3 L Hct 22.0 L MCHC RDW 23.9 H Plt Count MCH Lymph % (Auto) 8.5 L Lymph # Lymph # (Auto) 0.8 L Seg Neutrophils % 87.6 H Seg Neuts % (Manual) Lymphocytes % (Manual) Seg Neutrophils # 8.7 H Seg Neutrophils # Man Basophils % (Manual) Nucleated RBC % Lymphocytes # (Manual) Monocytes # (Manual) Basophils # (Manual) PT INR Heparin Anti-Xa Level POC ABG pO2 112.8 H ABG pH 7.511 H ABG Hemoglobin 7.8 L ABG Oxyhemoglobin ABG pO2 ABG HCO3 ABG O2 Saturation ABG Base Excess ABG Sodium ABG Potassium 2.9 L ABG Chloride ABG Glucose 112 H Oxyhemoglobin Sodium Potassium 3.1 L Chloride Carbon Dioxide 31 H BUN 29 H Creatinine 0.3 L Glucose 108 H POC Glucose Lactic Acid Calcium AST Phosphorus Total Protein Albumin C-Reactive Protein Arterial Blood Glucose 112 H Arterial Blood Ionized Calcium Urine WBC (Auto) Crossmatch 02/08/20 02/08/20 02/08/20 05:31 10:15 12:10 WBC RBC Hgb Hct MCHC RDW Plt Count MCH Lymph % (Auto) Lymph # Lymph # (Auto) Seg Neutrophils % Seg Neuts % (Manual) Lymphocytes % (Manual) Seg Neutrophils # Seg Neutrophils # Man Basophils % (Manual) Nucleated RBC % Lymphocytes # (Manual) Monocytes # (Manual) Basophils # (Manual) PT INR Heparin Anti-Xa Level POC ABG pO2 ABG pH ABG Hemoglobin ABG Oxyhemoglobin ABG pO2 ABG HCO3 ABG O2 Saturation ABG Base Excess ABG Sodium ABG Potassium ABG Chloride ABG Glucose Oxyhemoglobin Sodium Potassium Chloride Carbon Dioxide BUN Creatinine Glucose POC Glucose 117 H 164 H 170 H Lactic Acid Calcium AST Phosphorus Total Protein Albumin C-Reactive Protein Arterial Blood Glucose Arterial Blood Ionized Calcium Urine WBC (Auto) Crossmatch 02/08/20 02/08/20 02/09/20 12:23 23:50 03:04 WBC RBC Hgb Hct MCHC RDW Plt Count MCH Lymph % (Auto) Lymph # Lymph # (Auto) Seg Neutrophils % Seg Neuts % (Manual) Lymphocytes % (Manual) Seg Neutrophils # Seg Neutrophils # Man Basophils % (Manual) Nucleated RBC % Lymphocytes # (Manual) Monocytes # (Manual) Basophils # (Manual) PT INR Heparin Anti-Xa Level POC ABG pO2 ABG pH 7.501 H ABG Hemoglobin 7.5 L ABG Oxyhemoglobin ABG pO2 ABG HCO3 ABG O2 Saturation ABG Base Excess ABG Sodium ABG Potassium ABG Chloride ABG Glucose 143 H Oxyhemoglobin Sodium Potassium Chloride Carbon Dioxide BUN Creatinine Glucose POC Glucose 164 H 126 H Lactic Acid Calcium AST Phosphorus Total Protein Albumin C-Reactive Protein Arterial Blood Glucose 143 H Arterial Blood Ionized Calcium Urine WBC (Auto) Crossmatch 02/09/20 02/09/20 02/09/20 05:57 08:00 12:39 WBC RBC Hgb Hct MCHC RDW Plt Count MCH Lymph % (Auto) Lymph # Lymph # (Auto) Seg Neutrophils % Seg Neuts % (Manual) Lymphocytes % (Manual) Seg Neutrophils # Seg Neutrophils # Man Basophils % (Manual) Nucleated RBC % Lymphocytes # (Manual) Monocytes # (Manual) Basophils # (Manual) PT INR Heparin Anti-Xa Level POC ABG pO2 ABG pH ABG Hemoglobin ABG Oxyhemoglobin ABG pO2 ABG HCO3 ABG O2 Saturation ABG Base Excess ABG Sodium ABG Potassium ABG Chloride ABG Glucose Oxyhemoglobin Sodium Potassium 3.3 L Chloride Carbon Dioxide 34 H BUN 27 H Creatinine 0.4 L Glucose 127 H POC Glucose 160 H 154 H Lactic Acid Calcium 8.2 L AST Phosphorus Total Protein Albumin C-Reactive Protein Arterial Blood Glucose Arterial Blood Ionized Calcium Urine WBC (Auto) Crossmatch 02/09/20 02/09/20 02/09/20 18:17 23:43 Unknown WBC RBC 2.15 L Hgb 7.0 L Hct 20.8 L MCHC RDW 23.3 H Plt Count MCH 33 H Lymph % (Auto) Lymph # Lymph # (Auto) Seg Neutrophils % Seg Neuts % (Manual) Lymphocytes % (Manual) Seg Neutrophils # Seg Neutrophils # Man Basophils % (Manual) Nucleated RBC % Lymphocytes # (Manual) Monocytes # (Manual) Basophils # (Manual) PT INR Heparin Anti-Xa Level POC ABG pO2 ABG pH ABG Hemoglobin ABG Oxyhemoglobin ABG pO2 ABG HCO3 ABG O2 Saturation ABG Base Excess ABG Sodium ABG Potassium ABG Chloride ABG Glucose Oxyhemoglobin Sodium Potassium Chloride Carbon Dioxide BUN Creatinine Glucose POC Glucose 152 H 177 H Lactic Acid Calcium AST Phosphorus Total Protein Albumin C-Reactive Protein Arterial Blood Glucose Arterial Blood Ionized Calcium Urine WBC (Auto) Crossmatch 02/10/20 02/10/20 02/10/20 04:38 05:24 11:44 WBC RBC Hgb Hct MCHC RDW Plt Count MCH Lymph % (Auto) Lymph # Lymph # (Auto) Seg Neutrophils % Seg Neuts % (Manual) Lymphocytes % (Manual) Seg Neutrophils # Seg Neutrophils # Man Basophils % (Manual) Nucleated RBC % Lymphocytes # (Manual) Monocytes # (Manual) Basophils # (Manual) PT INR Heparin Anti-Xa Level POC ABG pO2 ABG pH 7.502 H ABG Hemoglobin 6.2 L ABG Oxyhemoglobin ABG pO2 136.0 H ABG HCO3 29.3 H ABG O2 Saturation ABG Base Excess 5.7 H ABG Sodium ABG Potassium ABG Chloride ABG Glucose Oxyhemoglobin Sodium Potassium Chloride Carbon Dioxide BUN Creatinine Glucose POC Glucose 113 H 176 H Lactic Acid Calcium AST Phosphorus Total Protein Albumin C-Reactive Protein Arterial Blood Glucose Arterial Blood Ionized Calcium Urine WBC (Auto) Crossmatch 02/10/20 02/11/20 02/11/20 23:42 03:43 04:12 WBC RBC 2.12 L Hgb 6.9 L Hct 20.6 L MCHC RDW 23.4 H Plt Count MCH 33 H Lymph % (Auto) Lymph # Lymph # (Auto) Seg Neutrophils % 84.7 H Seg Neuts % (Manual) 83.0 H Lymphocytes % (Manual) 11.0 L Seg Neutrophils # Seg Neutrophils # Man Basophils % (Manual) Nucleated RBC % Lymphocytes # (Manual) 1.0 L Monocytes # (Manual) Basophils # (Manual) PT INR Heparin Anti-Xa Level POC ABG pO2 112.6 H ABG pH 7.480 H ABG Hemoglobin 7.2 L ABG Oxyhemoglobin ABG pO2 ABG HCO3 ABG O2 Saturation ABG Base Excess ABG Sodium ABG Potassium ABG Chloride ABG Glucose 154 H Oxyhemoglobin Sodium Potassium Chloride Carbon Dioxide BUN Creatinine Glucose POC Glucose 149 H Lactic Acid Calcium AST Phosphorus Total Protein Albumin C-Reactive Protein Arterial Blood Glucose 154 H Arterial Blood Ionized Calcium Urine WBC (Auto) Crossmatch 02/11/20 02/11/20 02/11/20 04:12 05:50 08:22 WBC RBC Hgb Hct MCHC RDW Plt Count MCH Lymph % (Auto) Lymph # Lymph # (Auto) Seg Neutrophils % Seg Neuts % (Manual) Lymphocytes % (Manual) Seg Neutrophils # Seg Neutrophils # Man Basophils % (Manual) Nucleated RBC % Lymphocytes # (Manual) Monocytes # (Manual) Basophils # (Manual) PT INR Heparin Anti-Xa Level POC ABG pO2 ABG pH ABG Hemoglobin ABG Oxyhemoglobin ABG pO2 ABG HCO3 ABG O2 Saturation ABG Base Excess ABG Sodium ABG Potassium ABG Chloride ABG Glucose Oxyhemoglobin Sodium 146 H Potassium Chloride Carbon Dioxide BUN 24 H Creatinine 0.4 L Glucose 168 H POC Glucose 190 H Lactic Acid Calcium 8.0 L AST Phosphorus Total Protein Albumin C-Reactive Protein Arterial Blood Glucose Arterial Blood Ionized Calcium Urine WBC (Auto) Crossmatch See Detail 02/11/20 02/11/20 02/11/20 11:41 17:33 23:40 WBC RBC Hgb Hct MCHC RDW Plt Count MCH Lymph % (Auto) Lymph # Lymph # (Auto) Seg Neutrophils % Seg Neuts % (Manual) Lymphocytes % (Manual) Seg Neutrophils # Seg Neutrophils # Man Basophils % (Manual) Nucleated RBC % Lymphocytes # (Manual) Monocytes # (Manual) Basophils # (Manual) PT INR Heparin Anti-Xa Level POC ABG pO2 ABG pH ABG Hemoglobin ABG Oxyhemoglobin ABG pO2 ABG HCO3 ABG O2 Saturation ABG Base Excess ABG Sodium ABG Potassium ABG Chloride ABG Glucose Oxyhemoglobin Sodium Potassium Chloride Carbon Dioxide BUN Creatinine Glucose POC Glucose 260 H 132 H 54 L Lactic Acid Calcium AST Phosphorus Total Protein Albumin C-Reactive Protein Arterial Blood Glucose Arterial Blood Ionized Calcium Urine WBC (Auto) Crossmatch 02/12/20 02/12/20 02/12/20 05:16 06:45 11:48 WBC RBC Hgb 8.6 L Hct 25.2 L MCHC RDW Plt Count MCH Lymph % (Auto) Lymph # Lymph # (Auto) Seg Neutrophils % Seg Neuts % (Manual) Lymphocytes % (Manual) Seg Neutrophils # Seg Neutrophils # Man Basophils % (Manual) Nucleated RBC % Lymphocytes # (Manual) Monocytes # (Manual) Basophils # (Manual) PT INR Heparin Anti-Xa Level POC ABG pO2 ABG pH ABG Hemoglobin ABG Oxyhemoglobin ABG pO2 ABG HCO3 ABG O2 Saturation ABG Base Excess ABG Sodium ABG Potassium ABG Chloride ABG Glucose Oxyhemoglobin Sodium Potassium Chloride Carbon Dioxide BUN Creatinine Glucose POC Glucose 127 H 163 H Lactic Acid Calcium AST Phosphorus Total Protein Albumin C-Reactive Protein Arterial Blood Glucose Arterial Blood Ionized Calcium Urine WBC (Auto) Crossmatch 02/12/20 02/12/20 02/13/20 17:25 23:53 04:30 WBC RBC Hgb Hct MCHC RDW Plt Count MCH Lymph % (Auto) Lymph # Lymph # (Auto) Seg Neutrophils % Seg Neuts % (Manual) Lymphocytes % (Manual) Seg Neutrophils # Seg Neutrophils # Man Basophils % (Manual) Nucleated RBC % Lymphocytes # (Manual) Monocytes # (Manual) Basophils # (Manual) PT INR Heparin Anti-Xa Level POC ABG pO2 ABG pH 7.463 H ABG Hemoglobin ABG Oxyhemoglobin ABG pO2 98.4 H ABG HCO3 27.7 H ABG O2 Saturation ABG Base Excess 3.7 H ABG Sodium ABG Potassium ABG Chloride ABG Glucose Oxyhemoglobin Sodium Potassium Chloride Carbon Dioxide BUN Creatinine Glucose POC Glucose 152 H 140 H Lactic Acid Calcium AST Phosphorus Total Protein Albumin C-Reactive Protein Arterial Blood Glucose Arterial Blood Ionized Calcium Urine WBC (Auto) Crossmatch 02/13/20 02/13/20 02/13/20 04:45 04:45 05:19 WBC RBC 2.73 L Hgb 8.7 L Hct 25.6 L MCHC RDW 21.3 H Plt Count MCH Lymph % (Auto) 12.0 L Lymph # Lymph # (Auto) 1.0 L Seg Neutrophils % 82.5 H Seg Neuts % (Manual) Lymphocytes % (Manual) Seg Neutrophils # Seg Neutrophils # Man Basophils % (Manual) Nucleated RBC % Lymphocytes # (Manual) Monocytes # (Manual) Basophils # (Manual) PT INR Heparin Anti-Xa Level POC ABG pO2 ABG pH ABG Hemoglobin ABG Oxyhemoglobin ABG pO2 ABG HCO3 ABG O2 Saturation ABG Base Excess ABG Sodium ABG Potassium ABG Chloride ABG Glucose Oxyhemoglobin Sodium Potassium 3.4 L Chloride Carbon Dioxide 31 H BUN 24 H Creatinine 0.3 L Glucose 122 H POC Glucose 127 H Lactic Acid Calcium 8.0 L AST Phosphorus Total Protein 4.2 L Albumin 2.0 L C-Reactive Protein Arterial Blood Glucose Arterial Blood Ionized Calcium Urine WBC (Auto) Crossmatch 02/13/20 02/14/20 02/14/20 23:08 04:26 04:26 WBC RBC 2.74 L Hgb 8.7 L Hct 25.8 L MCHC RDW 21.3 H Plt Count MCH Lymph % (Auto) 13.2 L Lymph # Lymph # (Auto) Seg Neutrophils % 81.4 H Seg Neuts % (Manual) Lymphocytes % (Manual) Seg Neutrophils # 8.4 H Seg Neutrophils # Man Basophils % (Manual) Nucleated RBC % Lymphocytes # (Manual) Monocytes # (Manual) Basophils # (Manual) PT INR Heparin Anti-Xa Level POC ABG pO2 ABG pH ABG Hemoglobin ABG Oxyhemoglobin ABG pO2 ABG HCO3 ABG O2 Saturation ABG Base Excess ABG Sodium ABG Potassium ABG Chloride ABG Glucose Oxyhemoglobin Sodium Potassium 3.4 L Chloride 107.6 H Carbon Dioxide BUN 20 H Creatinine 0.3 L Glucose 170 H POC Glucose 148 H Lactic Acid Calcium 8.2 L AST Phosphorus Total Protein Albumin C-Reactive Protein Arterial Blood Glucose Arterial Blood Ionized Calcium Urine WBC (Auto) Crossmatch 02/14/20 02/14/20 02/14/20 05:05 12:08 17:37 WBC RBC Hgb Hct MCHC RDW Plt Count MCH Lymph % (Auto) Lymph # Lymph # (Auto) Seg Neutrophils % Seg Neuts % (Manual) Lymphocytes % (Manual) Seg Neutrophils # Seg Neutrophils # Man Basophils % (Manual) Nucleated RBC % Lymphocytes # (Manual) Monocytes # (Manual) Basophils # (Manual) PT INR Heparin Anti-Xa Level POC ABG pO2 ABG pH ABG Hemoglobin ABG Oxyhemoglobin ABG pO2 ABG HCO3 ABG O2 Saturation ABG Base Excess ABG Sodium ABG Potassium ABG Chloride ABG Glucose Oxyhemoglobin Sodium Potassium Chloride Carbon Dioxide BUN Creatinine Glucose POC Glucose 182 H 156 H 144 H Lactic Acid Calcium AST Phosphorus Total Protein Albumin C-Reactive Protein Arterial Blood Glucose Arterial Blood Ionized Calcium Urine WBC (Auto) Crossmatch 02/14/20 02/15/20 02/15/20 23:36 05:44 12:11 WBC RBC Hgb Hct MCHC RDW Plt Count MCH Lymph % (Auto) Lymph # Lymph # (Auto) Seg Neutrophils % Seg Neuts % (Manual) Lymphocytes % (Manual) Seg Neutrophils # Seg Neutrophils # Man Basophils % (Manual) Nucleated RBC % Lymphocytes # (Manual) Monocytes # (Manual) Basophils # (Manual) PT INR Heparin Anti-Xa Level POC ABG pO2 ABG pH ABG Hemoglobin ABG Oxyhemoglobin ABG pO2 ABG HCO3 ABG O2 Saturation ABG Base Excess ABG Sodium ABG Potassium ABG Chloride ABG Glucose Oxyhemoglobin Sodium Potassium Chloride Carbon Dioxide BUN Creatinine Glucose POC Glucose 183 H 203 H 140 H Lactic Acid Calcium AST Phosphorus Total Protein Albumin C-Reactive Protein Arterial Blood Glucose Arterial Blood Ionized Calcium Urine WBC (Auto) Crossmatch 02/15/20 02/16/20 02/16/20 17:23 00:12 05:09 WBC RBC Hgb 8.8 L Hct 26.0 L MCHC RDW Plt Count MCH Lymph % (Auto) Lymph # Lymph # (Auto) Seg Neutrophils % Seg Neuts % (Manual) Lymphocytes % (Manual) Seg Neutrophils # Seg Neutrophils # Man Basophils % (Manual) Nucleated RBC % Lymphocytes # (Manual) Monocytes # (Manual) Basophils # (Manual) PT INR Heparin Anti-Xa Level POC ABG pO2 ABG pH ABG Hemoglobin ABG Oxyhemoglobin ABG pO2 ABG HCO3 ABG O2 Saturation ABG Base Excess ABG Sodium ABG Potassium ABG Chloride ABG Glucose Oxyhemoglobin Sodium Potassium Chloride Carbon Dioxide BUN Creatinine Glucose POC Glucose 170 H 133 H Lactic Acid Calcium AST Phosphorus Total Protein Albumin C-Reactive Protein Arterial Blood Glucose Arterial Blood Ionized Calcium Urine WBC (Auto) Crossmatch 02/16/20 02/16/20 02/16/20 05:09 05:21 12:22 WBC RBC Hgb Hct MCHC RDW Plt Count MCH Lymph % (Auto) Lymph # Lymph # (Auto) Seg Neutrophils % Seg Neuts % (Manual) Lymphocytes % (Manual) Seg Neutrophils # Seg Neutrophils # Man Basophils % (Manual) Nucleated RBC % Lymphocytes # (Manual) Monocytes # (Manual) Basophils # (Manual) PT INR Heparin Anti-Xa Level POC ABG pO2 ABG pH ABG Hemoglobin ABG Oxyhemoglobin ABG pO2 ABG HCO3 ABG O2 Saturation ABG Base Excess ABG Sodium ABG Potassium ABG Chloride ABG Glucose Oxyhemoglobin Sodium Potassium Chloride Carbon Dioxide 31 H BUN 18 H Creatinine 0.3 L Glucose 152 H POC Glucose 160 H 138 H Lactic Acid Calcium 7.9 L AST Phosphorus Total Protein Albumin C-Reactive Protein Arterial Blood Glucose Arterial Blood Ionized Calcium Urine WBC (Auto) Crossmatch 02/16/20 02/17/20 02/17/20 16:35 00:01 05:22 WBC RBC Hgb Hct MCHC RDW Plt Count MCH Lymph % (Auto) Lymph # Lymph # (Auto) Seg Neutrophils % Seg Neuts % (Manual) Lymphocytes % (Manual) Seg Neutrophils # Seg Neutrophils # Man Basophils % (Manual) Nucleated RBC % Lymphocytes # (Manual) Monocytes # (Manual) Basophils # (Manual) PT INR Heparin Anti-Xa Level POC ABG pO2 ABG pH ABG Hemoglobin ABG Oxyhemoglobin ABG pO2 ABG HCO3 ABG O2 Saturation ABG Base Excess ABG Sodium ABG Potassium ABG Chloride ABG Glucose Oxyhemoglobin Sodium Potassium Chloride Carbon Dioxide BUN Creatinine Glucose POC Glucose 142 H 173 H 126 H Lactic Acid Calcium AST Phosphorus Total Protein Albumin C-Reactive Protein Arterial Blood Glucose Arterial Blood Ionized Calcium Urine WBC (Auto) Crossmatch 02/17/20 02/17/20 02/18/20 11:35 18:08 00:15 WBC RBC Hgb Hct MCHC RDW Plt Count MCH Lymph % (Auto) Lymph # Lymph # (Auto) Seg Neutrophils % Seg Neuts % (Manual) Lymphocytes % (Manual) Seg Neutrophils # Seg Neutrophils # Man Basophils % (Manual) Nucleated RBC % Lymphocytes # (Manual) Monocytes # (Manual) Basophils # (Manual) PT INR Heparin Anti-Xa Level POC ABG pO2 ABG pH ABG Hemoglobin ABG Oxyhemoglobin ABG pO2 ABG HCO3 ABG O2 Saturation ABG Base Excess ABG Sodium ABG Potassium ABG Chloride ABG Glucose Oxyhemoglobin Sodium Potassium Chloride Carbon Dioxide BUN Creatinine Glucose POC Glucose 113 H 136 H 160 H Lactic Acid Calcium AST Phosphorus Total Protein Albumin C-Reactive Protein Arterial Blood Glucose Arterial Blood Ionized Calcium Urine WBC (Auto) Crossmatch 02/18/20 02/18/20 02/18/20 04:43 04:43 05:30 WBC RBC 3.24 L Hgb Hct MCHC RDW 20.1 H Plt Count 455 H MCH Lymph % (Auto) Lymph # Lymph # (Auto) Seg Neutrophils % Seg Neuts % (Manual) Lymphocytes % (Manual) Seg Neutrophils # Seg Neutrophils # Man Basophils % (Manual) Nucleated RBC % Lymphocytes # (Manual) Monocytes # (Manual) Basophils # (Manual) PT INR Heparin Anti-Xa Level POC ABG pO2 ABG pH ABG Hemoglobin ABG Oxyhemoglobin ABG pO2 ABG HCO3 ABG O2 Saturation ABG Base Excess ABG Sodium ABG Potassium ABG Chloride ABG Glucose Oxyhemoglobin Sodium Potassium Chloride Carbon Dioxide BUN Creatinine 0.3 L Glucose 118 H POC Glucose 139 H Lactic Acid Calcium AST Phosphorus Total Protein Albumin C-Reactive Protein Arterial Blood Glucose Arterial Blood Ionized Calcium Urine WBC (Auto) Crossmatch 02/18/20 02/18/20 02/19/20 11:55 17:51 00:00 WBC RBC Hgb Hct MCHC RDW Plt Count MCH Lymph % (Auto) Lymph # Lymph # (Auto) Seg Neutrophils % Seg Neuts % (Manual) Lymphocytes % (Manual) Seg Neutrophils # Seg Neutrophils # Man Basophils % (Manual) Nucleated RBC % Lymphocytes # (Manual) Monocytes # (Manual) Basophils # (Manual) PT INR Heparin Anti-Xa Level POC ABG pO2 ABG pH ABG Hemoglobin ABG Oxyhemoglobin ABG pO2 ABG HCO3 ABG O2 Saturation ABG Base Excess ABG Sodium ABG Potassium ABG Chloride ABG Glucose Oxyhemoglobin Sodium Potassium Chloride Carbon Dioxide BUN Creatinine Glucose POC Glucose 165 H 139 H 141 H Lactic Acid Calcium AST Phosphorus Total Protein Albumin C-Reactive Protein Arterial Blood Glucose Arterial Blood Ionized Calcium Urine WBC (Auto) Crossmatch 02/19/20 02/19/20 02/20/20 05:45 12:20 05:36 WBC RBC Hgb Hct MCHC RDW Plt Count MCH Lymph % (Auto) Lymph # Lymph # (Auto) Seg Neutrophils % Seg Neuts % (Manual) Lymphocytes % (Manual) Seg Neutrophils # Seg Neutrophils # Man Basophils % (Manual) Nucleated RBC % Lymphocytes # (Manual) Monocytes # (Manual) Basophils # (Manual) PT INR Heparin Anti-Xa Level POC ABG pO2 ABG pH ABG Hemoglobin ABG Oxyhemoglobin ABG pO2 ABG HCO3 ABG O2 Saturation ABG Base Excess ABG Sodium ABG Potassium ABG Chloride ABG Glucose Oxyhemoglobin Sodium Potassium Chloride Carbon Dioxide BUN Creatinine Glucose POC Glucose 169 H 161 H 159 H Lactic Acid Calcium AST Phosphorus Total Protein Albumin C-Reactive Protein Arterial Blood Glucose Arterial Blood Ionized Calcium Urine WBC (Auto) Crossmatch 02/20/20 02/20/20 02/20/20 08:24 08:24 11:54 WBC RBC 2.74 L Hgb 8.7 L Hct 26.4 L MCHC RDW 19.4 H Plt Count MCH Lymph % (Auto) Lymph # Lymph # (Auto) Seg Neutrophils % Seg Neuts % (Manual) 79.0 H Lymphocytes % (Manual) 12.0 L Seg Neutrophils # Seg Neutrophils # Man Basophils % (Manual) 2.0 H Nucleated RBC % Lymphocytes # (Manual) 1.0 L Monocytes # (Manual) Basophils # (Manual) 0.2 H PT INR Heparin Anti-Xa Level POC ABG pO2 ABG pH ABG Hemoglobin ABG Oxyhemoglobin ABG pO2 ABG HCO3 ABG O2 Saturation ABG Base Excess ABG Sodium ABG Potassium ABG Chloride ABG Glucose Oxyhemoglobin Sodium 134 L Potassium Chloride Carbon Dioxide BUN Creatinine 0.3 L Glucose 136 H POC Glucose 172 H Lactic Acid Calcium 8.0 L AST Phosphorus Total Protein Albumin C-Reactive Protein Arterial Blood Glucose Arterial Blood Ionized Calcium Urine WBC (Auto) Crossmatch 02/20/20 02/21/20 02/21/20 23:59 05:34 12:39 WBC RBC Hgb Hct MCHC RDW Plt Count MCH Lymph % (Auto) Lymph # Lymph # (Auto) Seg Neutrophils % Seg Neuts % (Manual) Lymphocytes % (Manual) Seg Neutrophils # Seg Neutrophils # Man Basophils % (Manual) Nucleated RBC % Lymphocytes # (Manual) Monocytes # (Manual) Basophils # (Manual) PT INR Heparin Anti-Xa Level POC ABG pO2 ABG pH ABG Hemoglobin ABG Oxyhemoglobin ABG pO2 ABG HCO3 ABG O2 Saturation ABG Base Excess ABG Sodium ABG Potassium ABG Chloride ABG Glucose Oxyhemoglobin Sodium Potassium Chloride Carbon Dioxide BUN Creatinine Glucose POC Glucose 117 H 159 H 133 H Lactic Acid Calcium AST Phosphorus Total Protein Albumin C-Reactive Protein Arterial Blood Glucose Arterial Blood Ionized Calcium Urine WBC (Auto) Crossmatch 02/22/20 02/22/20 02/22/20 06:14 11:40 17:57 WBC RBC Hgb Hct MCHC RDW Plt Count MCH Lymph % (Auto) Lymph # Lymph # (Auto) Seg Neutrophils % Seg Neuts % (Manual) Lymphocytes % (Manual) Seg Neutrophils # Seg Neutrophils # Man Basophils % (Manual) Nucleated RBC % Lymphocytes # (Manual) Monocytes # (Manual) Basophils # (Manual) PT INR Heparin Anti-Xa Level POC ABG pO2 ABG pH ABG Hemoglobin ABG Oxyhemoglobin ABG pO2 ABG HCO3 ABG O2 Saturation ABG Base Excess ABG Sodium ABG Potassium ABG Chloride ABG Glucose Oxyhemoglobin Sodium Potassium Chloride Carbon Dioxide BUN Creatinine Glucose POC Glucose 139 H 147 H 131 H Lactic Acid Calcium AST Phosphorus Total Protein Albumin C-Reactive Protein Arterial Blood Glucose Arterial Blood Ionized Calcium Urine WBC (Auto) Crossmatch 02/22/20 02/23/20 02/23/20 23:50 03:16 12:07 WBC RBC Hgb Hct MCHC RDW Plt Count MCH Lymph % (Auto) Lymph # Lymph # (Auto) Seg Neutrophils % Seg Neuts % (Manual) Lymphocytes % (Manual) Seg Neutrophils # Seg Neutrophils # Man Basophils % (Manual) Nucleated RBC % Lymphocytes # (Manual) Monocytes # (Manual) Basophils # (Manual) PT INR Heparin Anti-Xa Level POC ABG pO2 ABG pH ABG Hemoglobin ABG Oxyhemoglobin ABG pO2 ABG HCO3 ABG O2 Saturation ABG Base Excess ABG Sodium ABG Potassium ABG Chloride ABG Glucose Oxyhemoglobin Sodium Potassium Chloride Carbon Dioxide BUN Creatinine Glucose POC Glucose 137 H 115 H 134 H Lactic Acid Calcium AST Phosphorus Total Protein Albumin C-Reactive Protein Arterial Blood Glucose Arterial Blood Ionized Calcium Urine WBC (Auto) Crossmatch 02/23/20 02/23/20 02/24/20 18:29 23:33 04:20 WBC 2.3 L RBC 0.97 L Hgb 3.2 L* Hct 9.2 L* MCHC 35 H RDW 18.6 H Plt Count MCH 33 H Lymph % (Auto) Lymph # Lymph # (Auto) Seg Neutrophils % Seg Neuts % (Manual) Lymphocytes % (Manual) Seg Neutrophils # Seg Neutrophils # Man Basophils % (Manual) Nucleated RBC % Lymphocytes # (Manual) Monocytes # (Manual) Basophils # (Manual) PT INR Heparin Anti-Xa Level POC ABG pO2 ABG pH ABG Hemoglobin ABG Oxyhemoglobin ABG pO2 ABG HCO3 ABG O2 Saturation ABG Base Excess ABG Sodium ABG Potassium ABG Chloride ABG Glucose Oxyhemoglobin Sodium Potassium Chloride Carbon Dioxide BUN Creatinine Glucose POC Glucose 119 H 140 H Lactic Acid Calcium AST Phosphorus Total Protein Albumin C-Reactive Protein Arterial Blood Glucose Arterial Blood Ionized Calcium Urine WBC (Auto) Crossmatch 02/24/20 02/24/20 02/24/20 04:20 06:01 07:02 WBC RBC 2.85 L Hgb 9.1 L D Hct 27.3 L D MCHC RDW 18.8 H Plt Count 538 H D MCH Lymph % (Auto) Lymph # Lymph # (Auto) Seg Neutrophils % Seg Neuts % (Manual) Lymphocytes % (Manual) Seg Neutrophils # Seg Neutrophils # Man Basophils % (Manual) Nucleated RBC % Lymphocytes # (Manual) Monocytes # (Manual) Basophils # (Manual) PT INR Heparin Anti-Xa Level POC ABG pO2 ABG pH ABG Hemoglobin ABG Oxyhemoglobin ABG pO2 ABG HCO3 ABG O2 Saturation ABG Base Excess ABG Sodium ABG Potassium ABG Chloride ABG Glucose Oxyhemoglobin Sodium Potassium Chloride 111.1 H Carbon Dioxide BUN 18 H Creatinine 0.3 L Glucose 115 H POC Glucose 123 H Lactic Acid Calcium 6.6 L D AST Phosphorus Total Protein Albumin C-Reactive Protein Arterial Blood Glucose Arterial Blood Ionized Calcium Urine WBC (Auto) Crossmatch 02/24/20 02/24/20 02/24/20 12:25 13:39 18:22 WBC RBC Hgb Hct MCHC RDW Plt Count MCH Lymph % (Auto) Lymph # Lymph # (Auto) Seg Neutrophils % Seg Neuts % (Manual) Lymphocytes % (Manual) Seg Neutrophils # Seg Neutrophils # Man Basophils % (Manual) Nucleated RBC % Lymphocytes # (Manual) Monocytes # (Manual) Basophils # (Manual) PT INR Heparin Anti-Xa Level POC ABG pO2 ABG pH 7.497 H ABG Hemoglobin 9.9 L ABG Oxyhemoglobin ABG pO2 ABG HCO3 ABG O2 Saturation ABG Base Excess ABG Sodium 135.4 L ABG Potassium ABG Chloride ABG Glucose 133 H Oxyhemoglobin Sodium Potassium Chloride Carbon Dioxide BUN Creatinine Glucose POC Glucose 128 H 128 H Lactic Acid Calcium AST Phosphorus Total Protein Albumin C-Reactive Protein Arterial Blood Glucose 133 H Arterial Blood Ionized Calcium Urine WBC (Auto) Crossmatch 02/25/20 02/25/20 02/25/20 00:01 06:01 12:15 WBC RBC Hgb Hct MCHC RDW Plt Count MCH Lymph % (Auto) Lymph # Lymph # (Auto) Seg Neutrophils % Seg Neuts % (Manual) Lymphocytes % (Manual) Seg Neutrophils # Seg Neutrophils # Man Basophils % (Manual) Nucleated RBC % Lymphocytes # (Manual) Monocytes # (Manual) Basophils # (Manual) PT INR Heparin Anti-Xa Level POC ABG pO2 ABG pH ABG Hemoglobin ABG Oxyhemoglobin ABG pO2 ABG HCO3 ABG O2 Saturation ABG Base Excess ABG Sodium ABG Potassium ABG Chloride ABG Glucose Oxyhemoglobin Sodium Potassium Chloride Carbon Dioxide BUN Creatinine Glucose POC Glucose 131 H 139 H 136 H Lactic Acid Calcium AST Phosphorus Total Protein Albumin C-Reactive Protein Arterial Blood Glucose Arterial Blood Ionized Calcium Urine WBC (Auto) Crossmatch 02/25/20 02/25/20 02/26/20 17:51 20:30 00:13 WBC RBC Hgb Hct MCHC RDW Plt Count MCH Lymph % (Auto) Lymph # Lymph # (Auto) Seg Neutrophils % Seg Neuts % (Manual) Lymphocytes % (Manual) Seg Neutrophils # Seg Neutrophils # Man Basophils % (Manual) Nucleated RBC % Lymphocytes # (Manual) Monocytes # (Manual) Basophils # (Manual) PT INR Heparin Anti-Xa Level POC ABG pO2 ABG pH 7.498 H ABG Hemoglobin 10.7 L ABG Oxyhemoglobin ABG pO2 146.1 H ABG HCO3 ABG O2 Saturation ABG Base Excess ABG Sodium ABG Potassium ABG Chloride ABG Glucose Oxyhemoglobin Sodium Potassium Chloride Carbon Dioxide BUN Creatinine Glucose POC Glucose 115 H 131 H Lactic Acid Calcium AST Phosphorus Total Protein Albumin C-Reactive Protein Arterial Blood Glucose Arterial Blood Ionized Calcium Urine WBC (Auto) Crossmatch 02/26/20 02/26/20 02/26/20 05:30 12:13 18:03 WBC RBC Hgb Hct MCHC RDW Plt Count MCH Lymph % (Auto) Lymph # Lymph # (Auto) Seg Neutrophils % Seg Neuts % (Manual) Lymphocytes % (Manual) Seg Neutrophils # Seg Neutrophils # Man Basophils % (Manual) Nucleated RBC % Lymphocytes # (Manual) Monocytes # (Manual) Basophils # (Manual) PT INR Heparin Anti-Xa Level POC ABG pO2 ABG pH ABG Hemoglobin ABG Oxyhemoglobin ABG pO2 ABG HCO3 ABG O2 Saturation ABG Base Excess ABG Sodium ABG Potassium ABG Chloride ABG Glucose Oxyhemoglobin Sodium Potassium Chloride Carbon Dioxide BUN Creatinine Glucose POC Glucose 129 H 152 H 137 H Lactic Acid Calcium AST Phosphorus Total Protein Albumin C-Reactive Protein Arterial Blood Glucose Arterial Blood Ionized Calcium Urine WBC (Auto) Crossmatch 02/26/20 02/27/20 23:53 05:47 WBC RBC Hgb Hct MCHC RDW Plt Count MCH Lymph % (Auto) Lymph # Lymph # (Auto) Seg Neutrophils % Seg Neuts % (Manual) Lymphocytes % (Manual) Seg Neutrophils # Seg Neutrophils # Man Basophils % (Manual) Nucleated RBC % Lymphocytes # (Manual) Monocytes # (Manual) Basophils # (Manual) PT INR Heparin Anti-Xa Level POC ABG pO2 ABG pH ABG Hemoglobin ABG Oxyhemoglobin ABG pO2 ABG HCO3 ABG O2 Saturation ABG Base Excess ABG Sodium ABG Potassium ABG Chloride ABG Glucose Oxyhemoglobin Sodium Potassium Chloride Carbon Dioxide BUN Creatinine Glucose POC Glucose 125 H 121 H Lactic Acid Calcium AST Phosphorus Total Protein Albumin C-Reactive Protein Arterial Blood Glucose Arterial Blood Ionized Calcium Urine WBC (Auto) Crossmatch Allied health notes reviewed: nursing
[2020-02-27 21:31] LABS: ABG Base Excess 3.1 mmol/L (-2.0-3.0); ABG HCO3 26.4 mmol/L (20.0-26.0); ABG Methemoglobin 0.6 % (0.0-1.5); ABG Oxygen Saturation 98.4 % (95.0-99.0); ABG PCO2 35.6 mm Hg; ABG PH 7.489 pH Units (7.350-7.450); ABG PO2 116.9 mm Hg (80.0-90.0)
[2020-02-27] MEDS ORDERED: SODIUM CHLORIDE 0.9% 500 ML 500 ML ONE (21:37)
[2020-02-27] MEDS: MIRTAZAPINE 15 MG TAB PO SCH (21:47)
[2020-02-27] MEDS: DONEPEZIL 10 MG TAB PO SCH (21:48)
[2020-02-27] MEDS: traZODone 50 MG TAB PO SCH (22:20)
[2020-02-28] MEDS: INSULIN REGULAR, HUMAN 100 UNIT/ML 3ML VIAL SUB-Q SCH ×3 (05:45→12:01)
--- NOTE | 2020-02-28 08:33 | Progress Note ---
Assessment and Plan Assessment and plan: 69-year-old -[place] female with known history of dementia, and according to the does not talk much due to this. Diabetes mellitus and pulmonary embolism was admitted through the emergency room from the snf on 01/07 for decreased responsiveness, lethargy and hypotension. Patient had sepsis UTI and sacral decubitus ulcer evaluated by ID, medications optimized, patient went into acute hypoxic respiratory failure requiring intubation admitted to ICU, extubated, patient sustained cardiac arrest x2, Requiring reintubation, became vent dependent, surgery evaluated underwent trach and PEG, currently patient is awaiting LTAC/SNF placement Patient remains vent dependent, with severe metabolic and hypoxic encephalopathy. Patient has unstageable sacral decubitus ulcer status post debridement Sepsis on long-term antibiotics total 6 weeks per ID, stop date 02/27/2020 --Acute hypoxic respiratory failure; vent dependent s/p tracheostomy,02/13/2020 per surgery, trach care, ventilatory support status post extubation 02/02/2020 but had to be reintubated on 02/04 We will continue current care, pulmonary critical following --Dysphagia s/p PEG placement; continue PEG feeds per protocol --Shock/ septic shock; s/p Levophed,monitor off Levophed --s/p PEA arrest night of 01/28/2020 and 02/05/2020 s/p CPR per ACLS protocol --Anoxic/hypoxic brain injury[status post PEA cardiac arrest]; supportive care Poor prognosis, family aware --Unstageable sacral decubitus ulcer, infected/POA s/p wound debridement on 01/15. Continue wound vac , Proteus bacteremia On zosyn 4.5 g IV q8h total 6 weeks per ID stop date 02/27/2020 --Sepsis /Proteus bacteremia: Due to sacral decubitus Long-term Zosyn per ID stop date 02/27/2020[total 6 weeks] --Hypokalemia /Hypernatremia; resolved --Anemia ; received 1 unit PRBC, now Hb 8.8 -- Diabetes mellitus; Blood sugars well controlled, A1c 5.3 Accu-Chek,SSC, long-acting insulin as needed Tube feeding diet -- Hydropneumothorax, not POA Patient developed hydropneumothorax on 01/15. Surgery evaluated s/p chest tube placed on 01/15. Improved, s/p chest tube removed 01/22, extubated 02/02/2020 Reintubated 02/05/2020 , tracheostomy 02/13/2020 -- large Left pleural effusion 01/25 01/27; s/p bronchoscopy and Therapeutic suctioning of the lungs done by firebrick and refractory tile repairer -- UTI (urinary tract infection)Completed antibiotics --h/o Bilateral pulmonary embolism 7 months ago Repeat CTA chest and LE doppler showed no acute PE or DVT, eliquis stopped -- Dementia: Continue donepezil --Severe protein-calorie malnutrition PEG placed 01/13. PEG feeds per protocol --DVT prophylaxis; SCDs --Disposition; possible LTAC placement Closely monitor the patient and adjust management as needed Plan of care reviewed with the patient and her nurse The high probability of a clinically significant, sudden or life threatening deterioration of the [Respiratory, MID LEVEL PROVIDER, CVs] system(s) required my full and direct attention, intervention and personal management. The aggregate critical care time was [31] minutes. This time is in addition to time spent performing reported procedures but includes the following: [x] Data Review and interpretation [x] Patient assessment and monitoring of vital signs [x] Documentation [x] Medication orders and management . Patient currently with PSV/CPAP FiO2 50%, PEEP of 6 and pressure support of 10. Continue PSV trials as tolerated and wean per pulmonary. Recall ID consultation. 02/08/2020. Patient with Proteus bacteremia likely from sacral decubitus. Continue Zosyn 4.5 g IV every 8 hours until stop date of 02/26. Patient still on mechanical ventilation AC mode rate 12, tidal volume 350, FiO2 30% and PEEP of 6. Poor prognosis. Consider hospice. Continue scopolamine for secretion control. Continue pressors to maintain MAP > 65; currently off. 02/09/2020. Continue Zosyn 4.5 g IV every 8 hours for Proteus bacteremia with end date of 02/27/2020. Continue wound care/wound VAC per surgery. Patient still on mechanical ventilation AC mode rate 12, tidal volume 350, FiO2 30% and PEEP of 6. Poor prognosis. Consider hospice. Continue scopolamine for secretion control. Currently off pressors. 02/09; evaluated by surgery, planning tracheostomy pending COVID test 02/10; possible tracheostomy today pending COVID test, surgery following 02/11; patient n.p.o. from midnight, possible tracheostomy tomorrow Received 1 unit of PRBC, Hb improved to 8.6 02/12; scheduled for tracheostomy today 02/13; trach care, bilateral upper extremity L edema and swelling, check venous Doppler 02/14; right upper extremity swelling edema, DC the line, elevate the limb 02/15;RUE venous Doppler no DVT, superficial thrombophlebitis, elevate the limb and supportive care 02/16; pending LTAC/SNF placement 02/17; pending LTAC/SNF placement 02/18; trach and PEG, on ventilatory support, awaiting LTAC placement. Sacral decubitus long-term a antibiotics Zosyn stop date 02/27/202002/19: Overnight patient experienced some hypotensive episodes. Was re suscitated with IV fluids. Doppler done over the course of the week showed a superficial right cephalic vein thrombosis. Will obtain intermittent labs this morning my understanding is that we are awaiting placement to LTAC. Patient is status post trach and PEG. 02/20; no significant change overnight, pending LTAC placement. 02/21; patient is still on Zosyn, blood pressure is within normal limit. Pending LTAC placement 02/22; patient's BP is okay. Patient is tachycardic. 02/23; no change. Patient is still on mechanical ventilation 02/24; patient is critically sick, no significant change. Patient is on mechanical ventilation. 02/25; no significant change. Patient is on mechanical ventilation. 02/26; Disposition; Awaiting LTAC/SNF placement. Authorization pending. 02/27; patient is pending for LTAC placement. Authorization pending. History Interval history: Patient was seen and evaluated this morning Patient has trach and on mechanical ventilator and CPAP intermittently Hospitalist Physical - Physical exam Narrative exam: Patient has a trach and on mechanical ventilator The patient appeared well nourished and normally developed. Vital signs as documented. Head exam is unremarkable. No scleral icterus . Neck is without jugular venous distension, thyromegaly, or carotid bruits. Lungs are clear to auscultation. Cardiac exam reveals regular rate and Rhythm. Abdominal exam reveals normal bowel sounds, nontender, no organomegaly. Extremities are nonedematous and both femoral and pedal pulses are normal. MID LEVEL PROVIDER: Patient is aphasic and noncommunicative. Does not follow commands. Extremities are contracted. - Constitutional Vitals: Temp Pulse Resp BP Pulse Ox 98.9 F 130 H 43 H 124/83 100 02/28/20 03:23 02/28/20 04:51 02/28/20 04:51 02/28/20 04:51 02/28/20 07:03 General appearance: Present: no acute distress, well-nourished, other (Trache ostomy on vent) Results - Labs CBC & Chem 7: 02/24/20 07:02 02/24/20 04:20 Labs: Laboratory Last Values WBC 6.6 K/mm3 (4.5-11.0) 02/24/20 07:02 RBC 2.85 M/mm3 (3.65-5.03) L 02/24/20 07:02 Hgb 9.1 gm/dl (10.1-14.3) L D 02/24/20 07:02 Hct 27.3 % (30.3-42.9) L D 02/24/20 07:02 MCV 96 fl (79-97) 02/24/20 07:02 MCH 32 pg (28-32) 02/24/20 07:02 MCHC 33 % (30-34) 02/24/20 07:02 RDW 18.8 % (13.2-15.2) H 02/24/20 07:02 Plt Count 538 K/mm3 (140-440) H D 02/24/20 07:02 Lymph % (Auto) 13.2 % (13.4-35.0) L 02/14/20 04:26 Petroleum % (Auto) 3.6 % (0.0-7.3) 02/14/20 04:26 Eos % (Auto) 1.0 % (0.0-4.3) 02/14/20 04:26 Baso % (Auto) 0.8 % (0.0-1.8) 02/14/20 04:26 Lymph # (Auto) 1.4 K/mm3 (1.2-5.4) 02/14/20 04:26 Petroleum # (Auto) 0.4 K/mm3 (0.0-0.8) 02/14/20 04:26 Eos # (Auto) 0.1 K/mm3 (0.0-0.4) 02/14/20 04:26 Baso # (Auto) 0.1 K/mm3 (0.0-0.1) 02/14/20 04:26 Add Manual Diff Complete 02/20/20 08:24 Total Counted 100 02/20/20 08:24 Seg Neutrophils % 81.4 % (40.0-70.0) H 02/14/20 04:26 Seg Neuts % (Manual) 79.0 % (40.0-70.0) H 02/20/20 08:24 Band Neutrophils % 0 % 02/20/20 08:24 Lymphocytes % (Manual) 12.0 % (13.4-35.0) L 02/20/20 08:24 Reactive Lymphs % (Man) 0 % 02/20/20 08:24 Monocytes % (Manual) 4.0 % (0.0-7.3) 02/20/20 08:24 Eosinophils % (Manual) 3.0 % (0.0-4.3) 02/20/20 08:24 Basophils % (Manual) 2.0 % (0.0-1.8) H 02/20/20 08:24 Metamyelocytes % 0 % 02/20/20 08:24 Myelocytes % 0 % 02/20/20 08:24 Promyelocytes % 0 % 02/20/20 08:24 Blast Cells % 0 % 02/20/20 08:24 Nucleated RBC % Not Reportable 02/20/20 08:24 Seg Neutrophils # 8.4 K/mm3 (1.8-7.7) H 02/14/20 04:26 Seg Neutrophils # Man 6.5 K/mm3 (1.8-7.7) 02/20/20 08:24 Band Neutrophils # 0.0 K/mm3 02/20/20 08:24 Lymphocytes # (Manual) 1.0 K/mm3 (1.2-5.4) L 02/20/20 08:24 Abs React Lymphs (Man) 0.0 K/mm3 02/20/20 08:24 Monocytes # (Manual) 0.3 K/mm3 (0.0-0.8) 02/20/20 08:24 Eosinophils # (Manual) 0.2 K/mm3 (0.0-0.4) 02/20/20 08:24 Basophils # (Manual) 0.2 K/mm3 (0.0-0.1) H 02/20/20 08:24 Metamyelocytes # 0.0 K/mm3 02/20/20 08:24 Myelocytes # 0.0 K/mm3 02/20/20 08:24 Promyelocytes # 0.0 K/mm3 02/20/20 08:24 Blast Cells # 0.0 K/mm3 02/20/20 08:24 WBC Morphology Not Reportable 02/20/20 08:24 Hypersegmented Neuts Not Reportable 02/20/20 08:24 Hyposegmented Neuts Not Reportable 02/20/20 08:24 Hypogranular Neuts Not Reportable 02/20/20 08:24 Smudge Cells Not Reportable 02/20/20 08:24 Toxic Granulation Not Reportable 02/20/20 08:24 Toxic Vacuolation Not Reportable 02/20/20 08:24 Dohle Bodies Not Reportable 02/20/20 08:24 Pelger-Huet Anomaly Not Reportable 02/20/20 08:24 Lata Rods Not Reportable 02/20/20 08:24 Platelet Estimate Consistent w auto 02/20/20 08:24 Clumped Platelets Rare 02/20/20 08:24 Plt Clumps, EDTA Not Reportable 02/20/20 08:24 Large Platelets Few 02/20/20 08:24 Giant Platelets Not Reportable 02/20/20 08:24 Platelet Satelliting Not Reportable 02/20/20 08:24 Plt Morphology Comment Not Reportable 02/20/20 08:24 RBC Morphology Not Reportable 02/20/20 08:24 Dimorphic RBCs Not Reportable 02/20/20 08:24 Polychromasia Not Reportable 02/20/20 08:24 Hypochromasia Not Reportable 02/20/20 08:24 Poikilocytosis Not Reportable 02/20/20 08:24 Anisocytosis 1+ 02/20/20 08:24 Microcytosis Not Reportable 02/20/20 08:24 Macrocytosis 1+ 02/20/20 08:24 Spherocytes Not Reportable 02/20/20 08:24 Pappenheimer Bodies Not Reportable 02/20/20 08:24 Sickle Cells Not Reportable 02/20/20 08:24 Target Cells Not Reportable 02/20/20 08:24 Tear Drop Cells Not Reportable 02/20/20 08:24 Ovalocytes Not Reportable 02/20/20 08:24 Helmet Cells Not Reportable 02/20/20 08:24 Lombardi-Plumwood Bodies Not Reportable 02/20/20 08:24 Cushing Rings Not Reportable 02/20/20 08:24 Leonidas Cells Not Reportable 02/20/20 08:24 Bite Cells Not Reportable 02/20/20 08:24 Crenated Cell Not Reportable 02/20/20 08:24 Elliptocytes Not Reportable 02/20/20 08:24 Acanthocytes (Spur) Not Reportable 02/20/20 08:24 Rouleaux Not Reportable 02/20/20 08:24 Hemoglobin C Crystals Not Reportable 02/20/20 08:24 Schistocytes Not Reportable 02/20/20 08:24 Malaria parasites Not Reportable 02/20/20 08:24 Gideon Bodies Not Reportable 02/20/20 08:24 Hem Pathologist Commnt No 02/20/20 08:24 APTT 33.9 Sec. (24.2-36.6) 01/26/20 16:30 PT 14.4 Sec. (12.2-14.9) 02/02/20 05:25 INR 1.11 (0.87-1.13) 02/02/20 05:25 Heparin Anti-Xa Level 0.74 U.I./ml (0.3-0.7) H 01/28/20 08:50 ABG pH 7.489 pH Units (7.350-7.450) H 02/27/20 21:21 POC ABG pCO2 37.3 mmHg (32.0-48.0) 02/24/20 13:39 ABG pCO2 35.6 mm Hg 02/27/20 21:21 POC ABG pO2 108.0 mmHg (83-108) 02/24/20 13:39 ABG pO2 116.9 mm Hg (80.0-90.0) H 02/27/20 21:21 POC ABG HCO3 28.2 02/24/20 13:39 ABG HCO3 26.4 mmol/L (20.0-26.0) H 02/27/20 21:21 ABG O2 Saturation 98.4 % (95.0-99.0) 02/27/20 21:21 ABG O2 Content 13.9 (0.0-44) 02/27/20 21:21 POC ABG Base Excess 4.8 02/24/20 13:39 ABG Base Excess 3.1 mmol/L (-2.0-3.0) H 02/27/20 21:21 ABG Hemoglobin 10.1 gm/dl (12.0-16.0) L 02/27/20 21:21 ABG Oxyhemoglobin 96.7 (94-98) 02/09/20 03:04 ABG Carboxyhemoglobin 1.5 % (0.0-5.0) 02/27/20 21: ABG Methemoglobin 0.6 % (0.0-1.5) 02/27/20 21: ABG Sodium 135.4 mmol/L (136.0-145.0) L 02/24/20 13:39 ABG Potassium 3.8 mmol/L (3.40-4.50) 02/24/20 13:39 ABG Chloride 106.0 mmol/L (98-107) 02/24/20 13:39 ABG Glucose 133 mg/dL (65-95) H 02/24/20 13:39 Oxyhemoglobin 96.3 % (95.0-99.0) 02/27/20 21:21 Carboxyhemoglobin TNR 02/08/20 03:55 FiO2 28 % 02/27/20 21: Sodium 142 mmol/L (137-145) D 02/24/20 04:20 Potassium 4.0 mmol/L (3.6-5.0) 02/24/20 04:20 Chloride 111.1 mmol/L (98-107) H 02/24/20 04:20 Carbon Dioxide 25 mmol/L (22-30) 02/24/20 04:20 Anion Gap 10 mmol/L 02/24/20 04:20 BUN 18 mg/dL (7-17) H 02/24/20 04:20 Creatinine 0.3 mg/dL (0.6-1.2) L 02/24/20 04:20 Estimated GFR > 60 ml/min 02/24/20 04:20 BUN/Creatinine Ratio 60 % 02/24/20 04:20 Glucose 115 mg/dL (65-100) H 02/24/20 04:20 POC Glucose 132 mg/dL (70-105) H 02/28/20 05:39 Hemoglobin A1c 5.3 % (4-6) 01/11/20 00:45 Lactic Acid 1.30 mmol/L (0.7-2.0) 01/26/20 23:27 Calcium 6.6 mg/dL (8.4-10.2) L D 02/24/20 04:20 Phosphorus 2.70 mg/dL (2.5-4.5) 02/24/20 04:20 Magnesium 2.00 mg/dL (1.7-2.3) 02/16/20 05:09 Total Bilirubin 0.20 mg/dL (0.1-1.2) 02/13/20 04:45 AST 29 units/L (5-40) 02/13/20 04:45 ALT 38 units/L (7-56) 02/13/20 04:45 Alkaline Phosphatase 109 units/L (35-129) 02/13/20 04:45 C-Reactive Protein 14.80 mg/dL (0.00-1.30) H 01/29/20 Unknown Total Protein 4.2 g/dL (6.3-8.2) L 02/13/20 04:45 Albumin 2.0 g/dL (3.9-5) L 02/13/20 04:45 Albumin/Globulin Ratio 0.9 % 02/13/20 04:45 TSH 2.440 mlU/mL (0.270-4.200) 01/10/20 10:10 Procalcitonin 1.86 ng/mL (<0.15) 01/29/20 Unknown Arterial Blood Glucose 133 mg/dL (65-95) H 02/24/20 13:39 Arterial Blood Ionized Calcium 4.7 mg/dL (4.6-5.3) 02/24/20 13:39 Urine Color Cordelia (Yellow) 01/08/20 Unknown Urine Turbidity Cloudy (Clear) 01/08/20 Unknown Urine pH 5.0 (5.0-7.0) 01/08/20 Unknown Ur Specific [place] 1.018 (1.003-1.030) 01/08/20 Unknown Urine Protein 30 mg/dl mg/dL (Negative) 01/08/20 Unknown Urine Glucose (UA) Neg mg/dL (Negative) 01/08/20 Unknown Urine Ketones Neg mg/dL (Negative) 01/08/20 Unknown Urine Blood Mod (Negative) 01/08/20 Unknown Urine Nitrite Neg (Negative) 01/08/20 Unknown Urine Bilirubin Neg (Negative) 01/08/20 Unknown Urine Urobilinogen < 2.0 mg/dL (<2.0) 01/08/20 Unknown Ur Leukocyte Esterase Sm (Negative) 01/08/20 Unknown Urine WBC (Auto) 11.0 /HPF (0.0-6.0) H 01/08/20 Unknown Urine RBC (Auto) 7.0 /HPF (0.0-6.0) 01/08/20 Unknown U Epithel Cells (Auto) < 1.0 /HPF (0-13.0) 01/08/20 Unknown Urine Bacteria (Auto) 1+ /HPF (Negative) 01/08/20 Unknown Urine Mucus 2+ /HPF 01/08/20 Unknown Urine Yeast (Budding) 1+ /HPF 01/08/20 Unknown Vancomycin Trough 7.9 ug/mL (5.0-20.0) 01/17/20 16:04 Coronavirus (PCR) Negative (Negative) 02/10/20 10:06 Blood Type A POSITIVE 02/11/20 08:22 Antibody Screen Negative 02/11/20 08:22 Crossmatch See Detail 02/11/20 08:22 Mejía/IV: Voiding Method Indwelling Catheter IV Catheter Type [Left Hand] Peripheral IV IV Catheter Type [Left Wrist] INT / Saline Lock IV Catheter Type [Left Upper PICC Line arm] IV Catheter Type [Right Upper Mid-line arm] IV Catheter Type [Right Peripheral IV Forearm] Active Medications - Current Medications Current Medications: Generic Name Dose Route Start Last Admin Trade Name Freq PRN Reason Stop Dose Admin Acetaminophen 650 mg 01/08/20 23:14 02/27/20 04:47 Tylenol PO 650 mg Q4H PRN Administration Pain MILD(1-3)/Fever >100.5/GARCIA Lipase/Protease/Amylase 1 each 01/17/20 08:[address] 10,500 Unit FEEDTUBE PRN PRN For Clogged Feeding Tube Atorvastatin Calcium 10 mg 01/09/20 22:00 02/27/20 21:48 Atorvastatin PO 10 mg QHS BRO Administration Dextrose 0 ml 01/08/20 23:14 02/10/20 17:18 D50w (25gm) Syringe IV 10 ml Q30MIN PRN Administration Hypoglycemia Protocol Donepezil HCl 10 mg 01/09/20 22:00 02/27/20 21:48 Aricept PO 10 mg QHS BRO Administration Famotidine 20 mg 01/27/20 10:00 02/27/20 21:48 Pepcid PO 20 mg BID BRO Administration Ferrous Sulfate 308 mg 02/09/20 12:00 02/27/20 09:48 Ferrous Sulfate FEEDTUBE 308 mg DAILY [facility] Administration Fluticasone Propionate 100 mcg 01/25/20 20:00 01/26/20 06:09 Flonase NS 100 mcg QDAY PRN Administration Nasal Congestion Glycopyrrolate 2 mg 02/18/20 22:00 02/27/20 21:48 Glycopyrrolate PO 2 mg BID BRO Administration Heparin Sodium (Porcine) 5,000 unit 01/28/20 10:00 02/27/20 21:45 Heparin SUB-Q 5,000 unit Q12HR BRO Administration Hydrophilic Ointment 1 applic 01/28/20 10:57 Vaseline Lip Therapy TP Q2HR PRN Dry Lips Norepinephrine 4 mg in 250 mls @ 7.5 mls/hr 02/19/20 22:00 Levophed Drip 4 Mg/Ns 250 Ml IV TITR BRO Protocol 2 MCG/MIN Sodium Chloride 250 mls @ 10 mls/hr 02/23/20 12:07 02/26/20 05:58 Nacl 0.9% 250ml IV 10 mls/hr PRN PRN Administration FOR SECONDARY LINE/ANTIBIOTICS Insulin Human Regular 0 unit 01/27/20 12:00 02/28/20 05:45 Humulin R SUB-Q Not Given Q6HR [facility] Protocol Loperamide HCl 2 mg 02/14/20 12:00 02/14/20 16:48 Loperamide PO 2 mg Q2H PRN Administration Diarrhea Magnesium Hydroxide 30 ml 01/08/20 23:14 Milk Of Magnesia PO Q4H PRN Constipation Mirtazapine 15 mg 01/09/20 22:00 02/27/20 21:47 Remeron PO 15 mg QHS BRO Administration Multi-Ingred Cream/Lotion/Oil/Oint 1 applic 01/28/20 10:57 Artificial Tears Ophth Oint OU Q4HR PRN Dry Eye(s) Multivitamins 5 ml 02/09/20 12:00 02/27/20 09:44 Centrum Liq PO 5 ml QDAY BRO Administration Ondansetron HCl 4 mg 01/08/20 23:14 Zofran IV Q8H PRN Nausea And Vomiting Oxycodone/Acetaminophen 1 tab 02/17/20 13:28 02/24/20 05:34 Percocet 5/325 PO 1 tab Q4H PRN Administration Pain, Moderate (4-6) Scopolamine 1 each 02/05/20 10:00 02/26/20 09:52 Transderm-Scop TD 1 each Q3D BRO Administration Simple Syrup 15 ml 01/17/20 08:37 Simple Syrup FEEDTUBE PRN PRN Hypoglycemia Simple Syrup 30 ml 01/17/20 08:37 02/11/20 23:43 Simple Syrup FEEDTUBE 30 ml PRN PRN Administration Hypoglycemia Sodium Bicarbonate 325 mg 01/17/20 08:37 Sodium Bicarbonate FEEDTUBE PRN PRN For Clogged Feeding Tube Sodium Chloride 10 ml 01/09/20 10:00 02/27/20 22:00 Sodium Chloride Flush Syringe 10 Ml IV 10 ml BID BRO Administration Sodium Chloride 10 ml 01/08/20 23:14 Sodium Chloride Flush Syringe 10 Ml IV PRN PRN LINE FLUSH Trazodone HCl 25 mg 01/09/20 22:00 02/27/20 22:20 Desyrel PO 25 mg QHS BRO Administration Nutrition/Malnutrition Assess - Dietary Evaluation Nutrition/Malnutrition Findings: Nutrition Notes Start: 01/09/20 12:13 Freq: Status: Active Protocol: Document 02/24/20 11:03 AL (Rec: 02/24/20 11:13 AL [email or web address]) Co-Sign 02/24/20 11:03 MK Nutrition Notes Initial or Follow up Reassessment Current Diagnosis Decubitus(Pressure Ulcer), Diabetes,Sepsis Other Pertinent Diagnosis UTI, dementia, PE, Sacral wound Current Diet Vital AF 1.2 at 50ml/hr Labs/Tests Reviewed Pertinent Medications Reviewed Height 5 ft 2 in Weight 63.1 kg [place] Body Weight (kg) 50.00 BMI 25.4 Weight Status Overweight Subjective/Other Information RD FU for stalbe TF. TF still running at 50 ml/hr (goal rate ). No issues with TF noted. Percent of energy/protein needs met: 91%/100% Burn Absent Trauma Absent Current % PO Negligible Minimum of two criteria Yes Fluid Accumulation Moderate to Severe (severe) Reduced Coal Handler Strength Measurably Reduced (severe) #3 Nutrition Diagnosis Malnutrition Diagnosis Progress(for reassessment Continues documentation) #2 Nutrition Diagnosis Inadequate oral intake Diagnosis Progress(for reassessment Continues documentation) #1 Nutrition Diagnosis Increased nutrient needs ( specify in comment below) Comments: protein Diagnosis Progress(for reassessment Continues documentation) Is patient on ventilator? Yes Is Patient Ambulatory and/or Out of Bed No REE-([facility]-confined to bed) 1331.064 Kcal/Kg value to use for calculation 22 Approximate Energy Requirements Using 1388 kcal/Kg Calculation Used for Recommendations Kcal/kg Additional Notes Pro: 81-98 g (1.25-1.5 g/kg) Fluid: 1ml/kcal Nutrition Intervention Change Diet Order: Continue Nutrition Support: Vital AF 1.2 at 50ml/hr Flush 250ml q4h per MD Kcal 1,440 Protein (gm) 90 Fluid (mL) 973 Goal #1 TF tolerance Goal #2 Meet at least 80% of kcal and protein needs via TF Goal #3 Wound healing Anticipated Discharge Needs: Continue TF Follow-Up By: 03/02/20 Additional Comments F/U for stable TF
[2020-02-28] MEDS: GLYCOPYRROLATE 2 MG TAB PO SCH (10:13)
[2020-02-28] MEDS: FERROUS SULFATE 308 MG (62mg Elemental Iron) / 7 ML ELIXIR FEEDTUBE SCH (10:13)
[2020-02-28] MEDS: MULTIVITAMINS 5 ML ORAL LIQUID PO SCH (10:13)
[2020-02-28] MEDS: HEPARIN 5,000 UNIT/1 ML VIAL SUB-Q SCH (10:13)
[2020-02-28] MEDS: FAMOTIDINE 20 MG TAB PO SCH (10:13)
--- NOTE | 2020-02-28 10:37 | Discharge Summary ---
Providers - Providers Date of Admission: 01/09/20 12:44 Date of discharge: 02/28/20 Attending physician: DEBBIE GOODWIN MD 01/08/20 23:14 Consult to Dietitian/Nutrition [CONS] Routine Physician Instructions: Reason For Exam: Reason for Consult: Diet education Consult to Physician [CONS] Routine Comment: Consulting Provider: TATO SINGH Physician Instructions: Reason For Exam: HYPERNATREMIA, DARON 01/09/20 07:18 Consult to Wound/ET Nurse [CONS] Urgent Reason For Exam: wound eval 01/09/20 07:23 Physical Therapy Evaluation and Treat [CONS] Routine Comment: Reason For Exam: Debility 01/10/20 02:09 Speech Therapy Evaluation and Treat [CONS] Routine Reason For Exam: swallow test 01/11/20 15:10 Consult to Dietitian/Nutrition [CONS] Routine Physician Instructions: Reason For Exam: Reason for Consult: Write/Manage Tube Feeding 01/11/20 16:25 Consult to Dietitian/Nutrition [CONS] Routine Physician Instructions: Assess nutrtn needs, initiate, modify, manage TF Reason For Exam: Reason for Consult: Write/Manage Tube Feeding Reason for Consult: Write/Manage Tube Feeding 01/12/20 11:00 Consult to Physician [CONS] Routine Comment: Consulting Provider: HERNESTO SZYMANSKI Physician Instructions: Reason For Exam: PEG tube placement 01/14/20 07:28 Consult to Physician [CONS] Routine Comment: Consulting Provider: ARTURO JUAREZ Physician Instructions: Reason For Exam: Sacral ulcer wound debridement 01/14/20 15:14 Consult to Dietitian/Nutrition [CONS] Routine Physician Instructions: Reason For Exam: Reason for Consult: post-peg 01/16/20 15:16 Consult to Wound/ET Nurse [CONS] Routine Reason For Exam: wound vac management 01/17/20 08:40 Consult to Dietitian/Nutrition [CONS] Routine Physician Instructions: Assess nutrtn needs, initiate, modify, manage TF Reason For Exam: Reason for Consult: Write/Manage Tube Feeding Reason for Consult: Write/Manage Tube Feeding 01/19/20 07:21 Consult to Physician [CONS] Routine Comment: Consulting Provider: AMY GARCIA Physician Instructions: Reason For Exam: Unstageable sacral ulcer s/p debridement 01/19/20 13:10 Consult to Case Management [CONS] Stat Services Needed at Discharge: Other Notified:: medical information officer Additional Physician Instructions: -Discuss with family goals of care, overall poor prognosis, bedbound, if family wants agressive management then will treat with zosyn 4.5 g IV every 8 hours total 6 weeks till 02/27/2020. 01/20/20 10:03 Consult to Case Management [CONS] Stat Services Needed at Discharge: Other Notified:: house calls nurse Additional Physician Instructions: [facility], [place] [facility] ([facility]) [address] [place] [address] OUTPATIENT PARENTERAL ANTIBIOTIC THERAPY (OPAT) ORDERS Diagnoses: Proteus bacteremia and Proteus and E faecalis sacral osteomyelitis Administer: zosyn 4.5 g IV every 8 hours total 6 weeks till 02/27/2020. Remove PICC line after last dose unless otherwise instructed. Line: Maintain IV access with weekly d ressing changes and locks per protocol. Labs: Every Sunday CBC, AST, ALT, Creatinine, CRP. Please fax results to [phone] and call [phone] for critical lab results. Rosalina Roberts MD Infectious Diseases Medical Planner [facility] [place] [facility] ([facility]) O: [phone] F: [phone] 01/21/20 02:35 Occupational Therapy Evaluate and Treat [CONS] Routine Comment: Reason For Exam: need evaluation per family request 01/21/20 15:42 Consult to PICC Line RN [CONS] Routine Reason For Exam: iv zosyn x 6 weeks Type Line:: PICC 01/26/20 16:25 Consult to Physician [CONS] Routine Comment: Consulting Provider: MATILDE CASPER Physician Instructions: Reason For Exam: respiratory failure 01/28/20 10:58 Consult to Dietitian/Nutrition [CONS] Routine Physician Instructions: Reason For Exam: Reason for Consult: Evaluate nutritional intake 01/28/20 11:50 Midline [Consult to PICC Line RN] [CONS] Stat Reason For Exam: midline Type Line:: Midline 02/07/20 08:34 Consult to Physician [CONS] Routine Comment: Consulting Provider: AMY GARCIA Physician Instructions: Reason For Exam: recall 02/09/20 10:57 Consult to Physician [CONS] Routine Comment: Consulting Provider: HEMANT MCADAMS Physician Instructions: Reason For Exam: Trach placement Primary care physician: WORKFORCE MANAGEMENT ANALYST Hospitalization Reason for admission: Acute hypoxic respiratory failure, septic shock,Anemia Condition: Stable Procedures: Trach PEG Hospital course: 69-year-old -Swiss female with known history of dementia, and according to the does not talk much due to this. Diabetes mellitus and pulmonary embolism was admitted through the emergency room from the shelter on 01/07 for decreased responsiveness, lethargy and hypotension. Patient had sepsis UTI and sacral decubitus ulcer evaluated by ID, medications optimized, patient went into acute hypoxic respiratory failure requiring intubation admitte d to ICU, extubated, patient sustained cardiac arrest x2, Requiring reintubation, became vent dependent, surgery evaluated underwent trach and PEG, currently patient is awaiting LTAC/SNF placement Patient remains vent dependent, with severe metabolic and hypoxic encephalopathy. Patient has unstageable sacral decubitus ulcer status post debridement Sepsis on long-term antibiotics total 6 weeks per ID, stop date 02/27/2020 --Acute hypoxic respiratory failure; vent dependent s/p tracheostomy,02/13/2020 per surgery, trach care, ventilatory support status post extubation 02/02/2020 but had to be reintubated on 02/04 We will continue current care, pulmonary critical following --Dysphagia s/p PEG placement; continue PEG feeds per protocol --Shock/ septic shock; s/p Levophed,monitor off Levophed --s/p PEA arrest night of 01/28/2020 and 02/05/2020 s/p CPR per ACLS protocol --Anoxic/hypoxic brain injury[status post PEA cardiac arrest]; supportive care Poor prognosis, family aware --Unstageable sacral decubitus ulcer, infected/POA s/p wound debridement on 01/15. Continue wound vac , Proteus bacteremia On zosyn 4.5 g IV q8h total 6 weeks per ID stop date 02/27/2020 --Sepsis /Proteus bacteremia: Due to sacral decubitus Long-term Zosyn per ID stop date 02/27/2020[total 6 weeks] --Hypokalemia /Hypernatremia; resolved --Anemia ; received 1 unit PRBC, now Hb 8.8 -- Diabetes mellitus; Blood sugars well controlled, A1c 5.3 Accu-Chek,SSC, long-acting insulin as needed Tube feeding diet -- Hydropneumothorax, not POA Patient developed hydropneumothorax on 01/15. Surgery evaluated s/p chest tube placed on 01/15. Improved, s/p chest tube removed 01/22, extubated 02/02/2020 Reintubated 02/05/2020 , tracheostomy 02/13/2020 -- large Left pleural effusion 01/25 01/27; s/p bronchoscopy and Therapeutic suctioning of the lungs done by building official -- UTI (urinary tract infection)Completed antibiotics --h/o Bilateral pulmonary embolism 7 months ago Repeat CTA chest and LE doppler showed no acute PE or DVT, eliquis stopped -- Dementia: Continue donepezil --Severe protein-calorie malnutrition PEG placed 01/13. PEG feeds per protocol --DVT prophylaxis; SCDs --Disposition; possible LTAC placement Closely monitor the patient and adjust management as needed Plan of care reviewed with the patient and her nurse The high probability of a clinically significant, sudden or life threatening deterioration of the [Respiratory, SAAS ARCHITECT, CVs] system(s) required my full and direct attention, intervention and personal management. The aggregate critical care time was [31] minutes. This time is in addition to time spent performing reported procedures but includes the following: [x] Data Review and interpretation [x] Patient assessment and monitoring of vital signs [x] Documentation [x] Medication orders and management . Patient currently with PSV/CPAP FiO2 50%, PEEP of 6 and pressure support of 10. Continue PSV trials as tolerated and wean per pulmonary. Recall ID consultation. 02/08/2020. Patient with Proteus bacteremia likely from sacral decubitus. Continue Zosyn 4.5 g IV every 8 hours until stop date of 02/26. Patient still on mechanical ventilation AC mode rate 12, tidal volume 350, FiO2 30% and PEEP of 6. Poor prognosis. Consider hospice. Continue scopolamine for secretion control. Continue pressors to maintain MAP > 65; currently off. 02/09/2020. Continue Zosyn 4.5 g IV every 8 hours for Proteus bacteremia with end date of 02/27/2020. Continue wound care/wound VAC per surgery. Patient still on mechanical ventilation AC mode rate 12, tidal volume 350, FiO2 30% and PEEP of 6. Poor prognosis. Consider hospice. Continue scopolamine for secretion control. Currently off pressors. 02/09; evaluated by surgery, planning tracheostomy pending COVID test 02/10; possible tracheostomy today pending COVID test, surgery following 02/11; patient n.p.o. from midnight, possible tracheostomy tomorrow Received 1 unit of PRBC, Hb improved to 8.6 02/12; scheduled for tracheostomy today 02/13; trach care, bilateral upper extremity L edema and swelling, check venous Doppler 02/14; right upper extremity swelling edema, DC the line, elevate the limb 02/15;RUE venous Doppler no DVT, superficial thrombophlebitis, elevate the limb and supportive care 02/16; pending LTAC/SNF placement 02/17; pending LTAC/SNF placement 02/18; trach and PEG, on ventilatory support, awaiting LTAC placement. Sacral decubitus long-term a antibiotics Zosyn stop date 02/27/202002/19: Overnight patient experienced some hypotensive episodes. Was resuscitated with IV fluids. Doppler done over the course of the week showed a superficial right cephalic vein thrombosis. Will obtain intermittent labs this morning my understanding is that we are awaiting placement to LTAC. Patient is status post trach and PEG. 02/20; no significant change overnight, pending LTAC placement. 02/21; patient is still on Zosyn, blood pressure is within normal limit. Pending LTAC placement 02/22; patient's BP is okay. Patient is tachycardic. 02/23; no change. Patient is still on mechanical ventilation 02/24; patient is critically sick, no significant change. Patient is on mechanical ventilation. 02/25; no significant change. Patient is on mechanical ventilation. 02/26; Disposition; Awaiting LTAC/SNF placement. Authorization pending. 02/27; patient is pending for LTAC placement. Authorization pending. Patient accepted by [facility] and discharged this morning. Disposition: [id number] HOME [facility] Time spent for discharge: 45-minutes - Discharge Diagnoses (1) Acute respiratory failure Status: Acute (2) Altered mental status Status: Acute Qualifiers: Altered mental status type: disorientation Qualified Code(s): R41.0 - Disorientation, unspecified (3) Hydropneumothorax Status: Acute (4) Moderate protein-calorie malnutrition Status: Acute (5) Pneumothorax Status: Acute (6) Sacral decubitus ulcer Status: Acute (7) Sepsis Status: Acute Qualifiers: Sepsis type: sepsis due to unspecified organism Sepsis acute organ d ysfunction status: unspecified Qualified Code(s): A41.9 - Sepsis, unspecified organism (8) Tachycardia Status: Acute (9) Hypernatremia Status: Resolved (10) UTI (urinary tract infection) Status: Resolved Qualifiers: Urinary tract infection type: acute cystitis Hematuria presence: without hematuria Qualified Code(s): N30.00 - Acute cystitis without hematuria (11) Acute prerenal azotemia Status: Acute (12) Diabetes mellitus type 2 in nonobese Status: Acute (13) Discharge planning issues Status: Acute (14) Encephalopathy Status: Acute (15) Hyperglycemia Status: Acute (16) Hyperosmolar non-ketotic state in patient with type 2 diabetes mellitus Status: Acute (17) Hypoxia Status: Acute (18) Pulmonary embolism Status: Acute (19) Uncontrolled diabetes mellitus Status: Acute (20) Volume depletion Status: Acute (21) Bilateral pulmonary embolism Status: Chronic (22) Dementia Status: Chronic Core Measure Documentation - Palliative Care Palliative Care/ Comfort Measures: Not Applicable - Core Measures Any of the following diagnoses?: none Exam - Physical Exam Narrative exam: Patient has a trach and on mechanical ventilator The patient appeared well nourished and normally developed. Vital signs as documented. Head exam is unremarkable. No scleral icterus . Neck is without jugular venous distension, thyromegaly, or carotid bruits. Lungs are clear to auscultation. Cardiac exam reveals regular rate and Rhythm. Abdominal exam reveals normal bowel sounds, nontender, no organomegaly. Extremities are nonedematous and both femoral and pedal pulses are normal. SAAS ARCHITECT: Patient is aphasic and noncommunicative. Does not follow commands. Extremities are contracted. - Constitutional Vitals: Temp Pulse Resp BP Pulse Ox 98.9 F 130 H 43 H 124/83 100 02/28/20 03:23 02/28/20 04:51 02/28/20 04:51 02/28/20 04:51 02/28/20 07:03 Plan Weight Bearing Status: Non-Weight Bearing Diet: other (Tube feeding) Care Plan Goals: Cleanse right heel, sacrum, right ear, and left ear wounds with wound cleanser or normal saline. Apply foam dressing to right heel, right ear, and left ear wounds, change dressing weekly and PRN. Cleanse sacral wound with wound cleanser or normal saline, pack with black foam, apply negative pressure wound therapy with setting at 125mmhg continuous twice weekly on Tuesdays and Fridays. Please offload sacrum, right ear, and left ear. Apply heel offloading boots bilaterally. Follow up with: PRIMARY CARE, [Primary Care Provider] - 3-5 Days Prescriptions: Metoprolol [Lopressor TAB] 12.5 mg PO BID #60 tablet
[2020-02-28] MEDS ORDERED: METOPROLOL TARTRATE 25 MG TAB PO ONE (11:00)
--- NOTE | 2020-02-28 11:54 | Progress Note ---
Assessment and Plan Severe sepsis with shock. Left lung atelectasis. Left pleural effusion. Acute hypoxemic respiratory failure. Acute possibly on chronic encephalopathy. History of diabetes. Urinary tract infection. History of pulmonary embolism, diagnosed several months ago. Sacral decubitus ulcer. Dementia. Anemia that is normocytic. - watch closely in ICU another 24 hours as work of breating is borderline and may need MVS - continue RTC t-piece as tolerated for now - continue care as below otherwise; - prn vasopressors for target MAP > 65 mmHg - continue daily SAT's and SBT's as tolerated - continue scopolamine for secretions - continue to rest on AC qhs for now - complete AB's per ID rec's (Zosyn) - continue to wean supplemental oxygen for target O2 sat's > 92% acutely - VAP bundle addressed - continue lung protective strategies - continue bronchodilators with routine trach care and pulmonary hygiene per RT - wean per pulmonary driven protocols otherwise - continue accuchecks with glycemic control per SSI (While critically ill target blood glucose of 140-180 mg/dL; avoid hypoglycemia) - sedation prn for target RASS 0 to -1 - avoid nephrotoxins, renally dose all medications - continue to avoid benzodiazepine's, reduce the possibility of delirium - prn analgesia per CPOT score - Maintenance of sleep-wake cycle, avoid delirium - continue enteral nutritional support at goal rate as tolerated - G.I. & VTE prophylaxis with famotidine and heparin - PT/OT/ROM exercises - continue mobility protocols for pressure ulcer prophylaxis - Monitor hemodynamics closely - continue other care per attending / other consultants - discharge planning ongoing concurrently .... Re-evaluate in am & prn CONDITION: CRITICAL PROGNOSIS: GUARDED CODE STATUS: FULL CODE The high probability of a clinically significant, sudden or life-threatening deterioration of the [respiratory, cardiovascular & neurologic] system(s) required my full and direct attention, intervention and personal management. The aggregate critical care time was [31] minutes without overlap. Time includes spent on; [x] Data Review and interpretation [x] Patient assessment and monitoring of vital signs [x] Documentation [x] Medication orders and management Subjective Date of service: 02/28/20 Principal diagnosis: Septic Shock; S/P Cardiac Arrest; Ac. hypoxemic resp failure; UTI Interval history: Patient is seen today for: Severe sepsis with shock; S/P Cardiac Arrest; L. lung atelectasis / L. pleural effusion; Acute hypoxemic respiratory failure; Acute possibly on chronic encephalopathy; DM II; UTI; VTE Seen and examined at bedside; 24hour events reviewed; nursing and respiratory care staff consulted; no adverse overnight events reported to me; resting peacefully in bed; AMS is persistent; toleratyed last 14 houirs on t-piece with mildly increased work of breathing; no new issues otherwise Objective Vital Signs - 12hr 02/27/20 02/28/20 02/28/20 23:57 00:00 00:01 Temperature Pulse Rate 125 H 112 H 127 H Pulse Rate [ 112 H Right Dorsalis Pedis] Respiratory 33 H 35 H Rate Blood Pressure 137/85 128/83 O2 Sat by Pulse 99 99 Oximetry O2 Sat by Pulse Oximetry [ Assessment] 02/28/20 02/28/20 02/28/20 00:11 00:21 00:23 Temperature Pulse Rate 124 H 124 H 124 H Pulse Rate [ Right Dorsalis Pedis] Respiratory 32 H 36 H Rate Blood Pressure 128/83 128/83 128/83 O2 Sat by Pulse 99 99 98 Oximetry O2 Sat by Pulse Oximetry [ Assessment] 02/28/20 02/28/20 02/28/20 00:24 00:30 00:41 Temperature Pulse Rate 125 H 123 H Pulse Rate [ Right Dorsalis Pedis] Respiratory 35 H 39 H Rate Blood Pressure 123/71 123/71 O2 Sat by Pulse 99 99 Oximetry O2 Sat by Pulse 100 Oximetry [ Assessment] 02/28/20 02/28/20 02/28/20 00:51 01:01 01:11 Temperature Pulse Rate 124 H 122 H 123 H Pulse Rate [ Right Dorsalis Pedis] Respiratory 35 H 35 H 32 H Rate Blood Pressure 123/71 140/104 140/104 O2 Sat by Pulse 99 99 99 Oximetry O2 Sat by Pulse Oximetry [ Assessment] 02/28/20 02/28/20 02/28/20 01:21 01:31 01:41 Temperature Pulse Rate 121 H 122 H 122 H Pulse Rate [ Right Dorsalis Pedis] Respiratory 26 H 36 H 32 H Rate Blood Pressure 140/104 119/61 119/61 O2 Sat by Pulse 99 99 99 Oximetry O2 Sat by Pulse Oximetry [ Assessment] 02/28/20 02/28/20 02/28/20 01:51 02:01 02:11 Temperature Pulse Rate 122 H 121 H 121 H Pulse Rate [ Right Dorsalis Pedis] Respiratory 35 H 33 H 34 H Rate Blood Pressure 119/61 145/86 145/86 O2 Sat by Pulse 98 98 99 Oximetry O2 Sat by Pulse Oximetry [ Assessment] 02/28/20 02/28/20 02/28/20 02:21 02:31 02:41 Temperature Pulse Rate 122 H 121 H 122 H Pulse Rate [ Right Dorsalis Pedis] Respiratory 37 H 36 H 35 H Rate Blood Pressure 145/86 129/32 129/32 O2 Sat by Pulse 99 99 99 Oximetry O2 Sat by Pulse Oximetry [ Assessment] 02/28/20 02/28/20 02/28/20 02:51 03:01 03:11 Temperature Pulse Rate 123 H 124 H 122 H Pulse Rate [ Right Dorsalis Pedis] Respiratory 33 H 36 H 36 H Rate Blood Pressure 129/32 129/32 117/57 O2 Sat by Pulse 99 98 99 Oximetry O2 Sat by Pulse Oximetry [ Assessment] 02/28/20 02/28/20 02/28/20 03:21 03:23 03:26 Temperature 98.9 F Pulse Rate 124 H Pulse Rate [ 124 H Right Dorsalis Pedis] Respiratory 35 H Rate Blood Pressure 117/57 O2 Sat by Pulse 99 Oximetry O2 Sat by Pulse Oximetry [ Assessment] 02/28/20 02/28/20 02/28/20 03:31 03:41 03:51 Temperature Pulse Rate 123 H 123 H 124 H Pulse Rate [ Right Dorsalis Pedis] Respiratory 33 H 33 H 36 H Rate Blood Pressure 123/49 123/49 123/49 O2 Sat by Pulse 99 99 99 Oximetry O2 Sat by Pulse Oximetry [ Assessment] 02/28/20 02/28/20 02/28/20 03:58 04:00 04:01 Temperature Pulse Rate 120 H 125 H 128 H Pulse Rate [ Right Dorsalis Pedis] Respiratory 36 H Rate Blood Pressure 123/49 115/86 O2 Sat by Pulse 99 99 Oximetry O2 Sat by Pulse Oximetry [ Assessment] 02/28/20 02/28/20 02/28/20 04:11 04:21 04:31 Temperature Pulse Rate 127 H 128 H 124 H Pulse Rate [ Right Dorsalis Pedis] Respiratory 40 H 35 H 39 H Rate Blood Pressure 115/86 115/86 124/83 O2 Sat by Pulse 99 99 99 Oximetry O2 Sat by Pulse Oximetry [ Assessment] 02/28/20 02/28/20 02/28/20 04:41 04:51 07:01 Temperature Pulse Rate 132 H 130 H Pulse Rate [ Right Dorsalis Pedis] Respiratory 39 H 43 H Rate Blood Pressure 124/83 124/83 O2 Sat by Pulse 100 100 Oximetry O2 Sat by Pulse 100 Oximetry [ Assessment] 02/28/20 07:03 Temperature Pulse Rate Pulse Rate [ Right Dorsalis Pedis] Respiratory Rate Blood Pressure O2 Sat by Pulse 100 Oximetry O2 Sat by Pulse Oximetry [ Assessment] Constitutional: no acute distress, alert, other (elderly chronically ill looking female trach to [facility] [place]) Eyes: non-icteric ENT: oropharynx moist Neck: supple, no lymphadenopathy, no JVD, other (s/p tracheostromy) Effort: normal Ascultation: Bilateral: diminished breath sounds, rhonchi (scant bases) Percussion: Bilateral: not dull Cardiovascular: regular rate and rhythm, other (S1,S2) Gastrointestinal: normoactive bowel sounds, soft, non-tender, non-distended, other (PEG in place) Integumentary: decubitus ulcer Extremities: no cyanosis, pulses normal, no ischemia or petechiae, edema (bilateral upper extremity edema) Neurologic: pupils equal and round, other (awake and alert, not obeying commands) Psychiatric: other (Unable to assess secondary to mental status) CBC and BMP: 02/24/20 07:02 02/24/20 04:20 ABG, PT/INR, D-dimer: ABG ABG pH 7.489 pH Units (7.350-7.450) H 02/27/20 21:21 POC ABG pCO2 37.3 mmHg (32.0-48.0) 02/24/20 13:39 ABG pCO2 35.6 mm Hg 02/27/20 21:21 POC ABG pO2 108.0 mmHg (83-108) 02/24/20 13:39 ABG pO2 116.9 mm Hg (80.0-90.0) H 02/27/20 21:21 POC ABG HCO3 28.2 02/24/20 13:39 ABG O2 Saturation 98.4 % (95.0-99.0) 02/27/20 21:21 PT/INR, D-dimer PT 14.4 Sec. (12.2-14.9) 02/02/20 05:25 INR 1.11 (0.87-1.13) 02/02/20 05:25 Abnormal lab findings: Abnormal Labs 01/08/20 01/08/20 01/08/20 16:29 16:29 16:29 WBC 13.5 H RBC Hgb Hct MCHC RDW 15.5 H Plt Count MCH Lymph % (Auto) Lymph # Lymph # (Auto) Seg Neutrophils % Seg Neuts % (Manual) 85.0 H Lymphocytes % (Manual) 11.0 L Seg Neutrophils # Seg Neutrophils # Man 11.5 H Basophils % (Manual) Nucleated RBC % Lymphocytes # (Manual) Monocytes # (Manual) Basophils # (Manual) PT INR Heparin Anti-Xa Level POC ABG pO2 ABG pH ABG Hemoglobin ABG Oxyhemoglobin ABG pO2 ABG HCO3 ABG O2 Saturation ABG Base Excess ABG Sodium ABG Potassium ABG Chloride ABG Glucose Oxyhemoglobin Sodium 161 H* Potassium Chloride 125.5 H Carbon Dioxide 20 L BUN 30 H Creatinine Glucose 115 H POC Glucose Lactic Acid 2.20 H* Calcium 7.9 L AST 48 H Phosphorus Total Protein Albumin 2.5 L C-Reactive Protein Arterial Blood Glucose Arterial Blood Ionized Calcium Urine WBC (Auto) Crossmatch 01/08/20 01/08/20 01/08/20 19:02 23:30 Unknown WBC RBC Hgb Hct MCHC RDW Plt Count MCH Lymph % (Auto) Lymph # Lymph # (Auto) Seg Neutrophils % Seg Neuts % (Manual) Lymphocytes % (Manual) Seg Neutrophils # Seg Neutrophils # Man Basophils % (Manual) Nucleated RBC % Lymphocytes # (Manual) Monocytes # (Manual) Basophils # (Manual) PT INR Heparin Anti-Xa Level POC ABG pO2 ABG pH ABG Hemoglobin ABG Oxyhemoglobin ABG pO2 ABG HCO3 ABG O2 Saturation ABG Base Excess ABG Sodium ABG Potassium ABG Chloride ABG Glucose Oxyhemoglobin Sodium Potassium Chloride Carbon Dioxide BUN Creatinine Glucose POC Glucose Lactic Acid 2.10 H* 2.50 H* Calcium AST Phosphorus Total Protein Albumin C-Reactive Protein Arterial Blood Glucose Arterial Blood Ionized Calcium Urine WBC (Auto) 11.0 H Crossmatch 01/09/20 01/09/20 01/09/20 00:19 00:54 05:52 WBC 13.5 H RBC 3.02 L Hgb 9.0 L D Hct 27.4 L D MCHC RDW Plt Count MCH Lymph % (Auto) 9.1 L Lymph # Lymph # (Auto) Seg Neutrophils % 87.6 H Seg Neuts % (Manual) Lymphocytes % (Manual) Seg Neutrophils # 11.8 H Seg Neutrophils # Man Basophils % (Manual) Nucleated RBC % Lymphocytes # (Manual) Monocytes # (Manual) Basophils # (Manual) PT INR Heparin Anti-Xa Level POC ABG pO2 ABG pH ABG Hemoglobin ABG Oxyhemoglobin ABG pO2 ABG HCO3 ABG O2 Saturation ABG Base Excess ABG Sodium ABG Potassium ABG Chloride ABG Glucose Oxyhemoglobin Sodium Potassium Chloride Carbon Dioxide BUN Creatinine Glucose POC Glucose 118 H 116 H Lactic Acid Calcium AST Phosphorus Total Protein Albumin C-Reactive Protein Arterial Blood Glucose Arterial Blood Ionized Calcium Urine WBC (Auto) Crossmatch 01/09/20 01/09/20 01/09/20 05:52 05:52 13:03 WBC RBC Hgb Hct MCHC RDW Plt Count MCH Lymph % (Auto) Lymph # Lymph # (Auto) Seg Neutrophils % Seg Neuts % (Manual) Lymphocytes % (Manual) Seg Neutrophils # Seg Neutrophils # Man Basophils % (Manual) Nucleated RBC % Lymphocytes # (Manual) Monocytes # (Manual) Basophils # (Manual) PT 17.1 H INR 1.36 H Heparin Anti-Xa Level POC ABG pO2 ABG pH ABG Hemoglobin ABG Oxyhemoglobin ABG pO2 ABG HCO3 ABG O2 Saturation ABG Base Excess ABG Sodium ABG Potassium ABG Chloride ABG Glucose Oxyhemoglobin Sodium 162 H* Potassium 3.0 L D Chloride 128.3 H Carbon Dioxide BUN 23 H Creatinine Glucose POC Glucose 55 L Lactic Acid Calcium 7.6 L AST Phosphorus Total Protein Albumin C-Reactive Protein Arterial Blood Glucose Arterial Blood Ionized Calcium Urine WBC (Auto) Crossmatch 01/09/20 01/09/20 01/09/20 21:22 21:50 22:28 WBC RBC Hgb Hct MCHC RDW Plt Count MCH Lymph % (Auto) Lymph # Lymph # (Auto) Seg Neutrophils % Seg Neuts % (Manual) Lymphocytes % (Manual) Seg Neutrophils # Seg Neutrophils # Man Basophils % (Manual) Nucleated RBC % Lymphocytes # (Manual) Monocytes # (Manual) Basophils # (Manual) PT INR Heparin Anti-Xa Level POC ABG pO2 ABG pH ABG Hemoglobin ABG Oxyhemoglobin ABG pO2 ABG HCO3 ABG O2 Saturation ABG Base Excess ABG Sodium ABG Potassium ABG Chloride ABG Glucose Oxyhemoglobin Sodium 159 H Potassium 5.1 H D Chloride 128.5 H Carbon Dioxide 16 L BUN 23 H Creatinine Glucose 51 L POC Glucose 52 L 106 H Lactic Acid Calcium 8.2 L AST Phosphorus Total Protein Albumin C-Reactive Protein Arterial Blood Glucose Arterial Blood Ionized Calcium Urine WBC (Auto) Crossmatch 01/10/20 01/10/20 01/10/20 05:23 09:11 10:10 WBC 13.4 H RBC Hgb Hct MCHC RDW Plt Count MCH Lymph % (Auto) 7.2 L Lymph # 1.0 L Lymph # (Auto) Seg Neutrophils % 90.0 H Seg Neuts % (Manual) Lymphocytes % (Manual) Seg Neutrophils # 12.0 H Seg Neutrophils # Man Basophils % (Manual) Nucleated RBC % Lymphocytes # (Manual) Monocytes # (Manual) Basophils # (Manual) PT INR Heparin Anti-Xa Level POC ABG pO2 ABG pH ABG Hemoglobin ABG Oxyhemoglobin ABG pO2 ABG HCO3 ABG O2 Saturation ABG Base Excess ABG Sodium ABG Potassium ABG Chloride ABG Glucose Oxyhemoglobin Sodium 155 H Potassium Chloride 122.8 H Carbon Dioxide 21 L BUN 19 H Creatinine Glucose POC Glucose 120 H Lactic Acid Calcium AST Phosphorus Total Protein Albumin C-Reactive Protein Arterial Blood Glucose Arterial Blood Ionized Calcium Urine WBC (Auto) Crossmatch 01/10/20 01/10/20 01/10/20 11:47 11:57 17:09 WBC RBC Hgb Hct MCHC RDW Plt Count MCH Lymph % (Auto) Lymph # Lymph # (Auto) Seg Neutrophils % Seg Neuts % (Manual) Lymphocytes % (Manual) Seg Neutrophils # Seg Neutrophils # Man Basophils % (Manual) Nucleated RBC % Lymphocytes # (Manual) Monocytes # (Manual) Basophils # (Manual) PT INR Heparin Anti-Xa Level POC ABG pO2 ABG pH ABG Hemoglobin ABG Oxyhemoglobin ABG pO2 ABG HCO3 ABG O2 Saturation ABG Base Excess ABG Sodium ABG Potassium ABG Chloride ABG Glucose Oxyhemoglobin Sodium 153 H Potassium Chloride 118.3 H Carbon Dioxide 20 L BUN 19 H Creatinine Glucose 113 H POC Glucose 142 H 125 H Lactic Acid Calcium AST Phosphorus Total Protein Albumin C-Reactive Protein Arterial Blood Glucose Arterial Blood Ionized Calcium Urine WBC (Auto) Crossmatch 01/10/20 01/10/20 01/11/20 20:27 22:00 00:45 WBC RBC Hgb Hct MCHC RDW Plt Count MCH Lymph % (Auto) Lymph # Lymph # (Auto) Seg Neutrophils % Seg Neuts % (Manual) Lymphocytes % (Manual) Seg Neutrophils # Seg Neutrophils # Man Basophils % (Manual) Nucleated RBC % Lymphocytes # (Manual) Monocytes # (Manual) Basophils # (Manual) PT INR Heparin Anti-Xa Level POC ABG pO2 ABG pH ABG Hemoglobin ABG Oxyhemoglobin ABG pO2 ABG HCO3 ABG O2 Saturation ABG Base Excess ABG Sodium ABG Potassium ABG Chloride ABG Glucose Oxyhemoglobin Sodium 153 H 154 H Potassium 3.3 L 3.2 L Chloride 117.0 H 118.9 H Carbon Dioxide 20 L BUN Creatinine Glucose POC Glucose 136 H Lactic Acid Calcium 8.3 L 8.0 L AST Phosphorus Total Protein Albumin C-Reactive Protein Arterial Blood Glucose Arterial Blood Ionized Calcium Urine WBC (Auto) Crossmatch 01/11/20 01/11/20 01/11/20 07:06 08:03 11:54 WBC RBC Hgb Hct MCHC RDW Plt Count MCH Lymph % (Auto) Lymph # Lymph # (Auto) Seg Neutrophils % Seg Neuts % (Manual) Lymphocytes % (Manual) Seg Neutrophils # Seg Neutrophils # Man Basophils % (Manual) Nucleated RBC % Lymphocytes # (Manual) Monocytes # (Manual) Basophils # (Manual) PT INR Heparin Anti-Xa Level POC ABG pO2 ABG pH ABG Hemoglobin ABG Oxyhemoglobin ABG pO2 ABG HCO3 ABG O2 Saturation ABG Base Excess ABG Sodium ABG Potassium ABG Chloride ABG Glucose Oxyhemoglobin Sodium 151 H Potassium Chloride 118.7 H Carbon Dioxide 21 L BUN Creatinine Glucose 107 H POC Glucose 118 H 164 H Lactic Acid Calcium 8.3 L AST Phosphorus Total Protein Albumin C-Reactive Protein Arterial Blood Glucose Arterial Blood Ionized Calcium Urine WBC (Auto) Crossmatch 01/11/20 01/12/20 01/12/20 16:28 00:19 05:40 WBC RBC Hgb Hct MCHC RDW Plt Count MCH Lymph % (Auto) Lymph # Lymph # (Auto) Seg Neutrophils % Seg Neuts % (Manual) Lymphocytes % (Manual) Seg Neutrophils # Seg Neutrophils # Man Basophils % (Manual) Nucleated RBC % Lymphocytes # (Manual) Monocytes # (Manual) Basophils # (Manual) PT INR Heparin Anti-Xa Level POC ABG pO2 ABG pH ABG Hemoglobin ABG Oxyhemoglobin ABG pO2 ABG HCO3 ABG O2 Saturation ABG Base Excess ABG Sodium ABG Potassium ABG Chloride ABG Glucose Oxyhemoglobin Sodium 148 H Potassium Chloride 111.6 H Carbon Dioxide 19 L BUN Creatinine Glucose 128 H POC Glucose 132 H 179 H Lactic Acid Calcium 8.2 L AST Phosphorus Total Protein Albumin C-Reactive Protein Arterial Blood Glucose Arterial Blood Ionized Calcium Urine WBC (Auto) Crossmatch 01/12/20 01/12/20 01/12/20 06:17 11:37 17:21 WBC RBC Hgb Hct MCHC RDW Plt Count MCH Lymph % (Auto) Lymph # Lymph # (Auto) Seg Neutrophils % Seg Neuts % (Manual) Lymphocytes % (Manual) Seg Neutrophils # Seg Neutrophils # Man Basophils % (Manual) Nucleated RBC % Lymphocytes # (Manual) Monocytes # (Manual) Basophils # (Manual) PT INR Heparin Anti-Xa Level POC ABG pO2 ABG pH ABG Hemoglobin ABG Oxyhemoglobin ABG pO2 ABG HCO3 ABG O2 Saturation ABG Base Excess ABG Sodium ABG Potassium ABG Chloride ABG Glucose Oxyhemoglobin Sodium Potassium Chloride Carbon Dioxide BUN Creatinine Glucose POC Glucose 140 H 142 H 133 H Lactic Acid Calcium AST Phosphorus Total Protein Albumin C-Reactive Protein Arterial Blood Glucose Arterial Blood Ionized Calcium Urine WBC (Auto) Crossmatch 01/12/20 01/13/20 01/13/20 23:14 05:26 07:00 WBC RBC Hgb Hct MCHC RDW Plt Count MCH Lymph % (Auto) Lymph # Lymph # (Auto) Seg Neutrophils % Seg Neuts % (Manual) Lymphocytes % (Manual) Seg Neutrophils # Seg Neutrophils # Man Basophils % (Manual) Nucleated RBC % Lymphocytes # (Manual) Monocytes # (Manual) Basophils # (Manual) PT INR Heparin Anti-Xa Level POC ABG pO2 ABG pH ABG Hemoglobin ABG Oxyhemoglobin ABG pO2 ABG HCO3 ABG O2 Saturation ABG Base Excess ABG Sodium ABG Potassium ABG Chloride ABG Glucose Oxyhemoglobin Sodium Potassium Chloride 110.0 H Carbon Dioxide BUN Creatinine Glucose 139 H POC Glucose 135 H 162 H Lactic Acid Calcium 7.8 L AST Phosphorus Total Protein Albumin C-Reactive Protein Arterial Blood Glucose Arterial Blood Ionized Calcium Urine WBC (Auto) Crossmatch 01/13/20 01/13/20 01/13/20 12:14 17:52 21:40 WBC RBC Hgb Hct MCHC RDW Plt Count MCH Lymph % (Auto) Lymph # Lymph # (Auto) Seg Neutrophils % Seg Neuts % (Manual) Lymphocytes % (Manual) Seg Neutrophils # Seg Neutrophils # Man Basophils % (Manual) Nucleated RBC % Lymphocytes # (Manual) Monocytes # (Manual) Basophils # (Manual) PT INR Heparin Anti-Xa Level POC ABG pO2 ABG pH ABG Hemoglobin ABG Oxyhemoglobin ABG pO2 ABG HCO3 ABG O2 Saturation ABG Base Excess ABG Sodium ABG Potassium ABG Chloride ABG Glucose Oxyhemoglobin Sodium Potassium Chloride Carbon Dioxide BUN Creatinine Glucose POC Glucose 205 H 172 H 186 H Lactic Acid Calcium AST Phosphorus Total Protein Albumin C-Reactive Protein Arterial Blood Glucose Arterial Blood Ionized Calcium Urine WBC (Auto) Crossmatch 01/14/20 01/14/20 01/14/20 04:28 11:01 11:01 WBC 14.8 H RBC 3.20 L Hgb 9.5 L Hct 28.0 L MCHC RDW Plt Count MCH Lymph % (Auto) Lymph # Lymph # (Auto) Seg Neutrophils % Seg Neuts % (Manual) Lymphocytes % (Manual) Seg Neutrophils # Seg Neutrophils # Man Basophils % (Manual) Nucleated RBC % Lymphocytes # (Manual) Monocytes # (Manual) Basophils # (Manual) PT INR Heparin Anti-Xa Level POC ABG pO2 ABG pH ABG Hemoglobin ABG Oxyhemoglobin ABG pO2 ABG HCO3 ABG O2 Saturation ABG Base Excess ABG Sodium ABG Potassium ABG Chloride ABG Glucose Oxyhemoglobin Sodium Potassium 3.2 L Chloride Carbon Dioxide BUN Creatinine 0.4 L Glucose POC Glucose 115 H Lactic Acid Calcium 8.0 L AST Phosphorus Total Protein Albumin C-Reactive Protein Arterial Blood Glucose Arterial Blood Ionized Calcium Urine WBC (Auto) Crossmatch 01/14/20 01/14/20 01/14/20 11:01 16:33 22:32 WBC RBC Hgb Hct MCHC RDW Plt Count MCH Lymph % (Auto) Lymph # Lymph # (Auto) Seg Neutrophils % Seg Neuts % (Manual) Lymphocytes % (Manual) Seg Neutrophils # Seg Neutrophils # Man Basophils % (Manual) Nucleated RBC % Lymphocytes # (Manual) Monocytes # (Manual) Basophils # (Manual) PT 15.8 H INR 1.23 H Heparin Anti-Xa Level POC ABG pO2 ABG pH ABG Hemoglobin ABG Oxyhemoglobin ABG pO2 ABG HCO3 ABG O2 Saturation ABG Base Excess ABG Sodium ABG Potassium ABG Chloride ABG Glucose Oxyhemoglobin Sodium Potassium Chloride Carbon Dioxide BUN Creatinine Glucose POC Glucose 58 L 188 H Lactic Acid Calcium AST Phosphorus Total Protein Albumin C-Reactive Protein Arterial Blood Glucose Arterial Blood Ionized Calcium Urine WBC (Auto) Crossmatch 01/15/20 01/15/20 01/15/20 05:35 06:19 17:17 WBC RBC Hgb Hct MCHC RDW Plt Count MCH Lymph % (Auto) Lymph # Lymph # (Auto) Seg Neutrophils % Seg Neuts % (Manual) Lymphocytes % (Manual) Seg Neutrophils # Seg Neutrophils # Man Basophils % (Manual) Nucleated RBC % Lymphocytes # (Manual) Monocytes # (Manual) Basophils # (Manual) PT INR Heparin Anti-Xa Level POC ABG pO2 ABG pH ABG Hemoglobin ABG Oxyhemoglobin ABG pO2 ABG HCO3 ABG O2 Saturation ABG Base Excess ABG Sodium ABG Potassium ABG Chloride ABG Glucose Oxyhemoglobin Sodium Potassium Chloride Carbon Dioxide BUN Creatinine 0.5 L Glucose 104 H POC Glucose 106 H 183 H Lactic Acid Calcium 7.8 L AST Phosphorus Total Protein Albumin C-Reactive Protein Arterial Blood Glucose Arterial Blood Ionized Calcium Urine WBC (Auto) Crossmatch 01/15/20 01/16/20 01/16/20 22:29 05:35 05:59 WBC 14.7 H RBC 3.04 L Hgb 9.0 L Hct 27.0 L MCHC RDW Plt Count MCH Lymph % (Auto) 9.1 L Lymph # Lymph # (Auto) Seg Neutrophils % 87.3 H Seg Neuts % (Manual) Lymphocytes % (Manual) Seg Neutrophils # 12.9 H Seg Neutrophils # Man Basophils % (Manual) Nucleated RBC % Lymphocytes # (Manual) Monocytes # (Manual) Basophils # (Manual) PT INR Heparin Anti-Xa Level POC ABG pO2 ABG pH ABG Hemoglobin ABG Oxyhemoglobin ABG pO2 ABG HCO3 ABG O2 Saturation ABG Base Excess ABG Sodium ABG Potassium ABG Chloride ABG Glucose Oxyhemoglobin Sodium Potassium Chloride Carbon Dioxide BUN Creatinine Glucose POC Glucose 228 H 130 H Lactic Acid Calcium AST Phosphorus Total Protein Albumin C-Reactive Protein Arterial Blood Glucose Arterial Blood Ionized Calcium Urine WBC (Auto) Crossmatch 01/16/20 01/16/20 01/16/20 09:52 12:49 17:30 WBC RBC Hgb Hct MCHC RDW Plt Count MCH Lymph % (Auto) Lymph # Lymph # (Auto) Seg Neutrophils % Seg Neuts % (Manual) Lymphocytes % (Manual) Seg Neutrophils # Seg Neutrophils # Man Basophils % (Manual) Nucleated RBC % Lymphocytes # (Manual) Monocytes # (Manual) Basophils # (Manual) PT INR Heparin Anti-Xa Level POC ABG pO2 ABG pH ABG Hemoglobin ABG Oxyhemoglobin ABG pO2 ABG HCO3 ABG O2 Saturation ABG Base Excess ABG Sodium ABG Potassium ABG Chloride ABG Glucose Oxyhemoglobin Sodium Potassium Chloride Carbon Dioxide BUN Creatinine Glucose POC Glucose 122 H 142 H 192 H Lactic Acid Calcium AST Phosphorus Total Protein Albumin C-Reactive Protein Arterial Blood Glucose Arterial Blood Ionized Calcium Urine WBC (Auto) Crossmatch 01/16/20 01/17/20 01/17/20 23:01 08:36 08:36 WBC 12.7 H RBC 2.98 L Hgb 8.9 L Hct 26.4 L MCHC RDW Plt Count MCH Lymph % (Auto) 8.8 L Lymph # 1.1 L Lymph # (Auto) Seg Neutrophils % 86.7 H Seg Neuts % (Manual) Lymphocytes % (Manual) Seg Neutrophils # 11.0 H Seg Neutrophils # Man Basophils % (Manual) Nucleated RBC % Lymphocytes # (Manual) Monocytes # (Manual) Basophils # (Manual) PT INR Heparin Anti-Xa Level POC ABG pO2 ABG pH ABG Hemoglobin ABG Oxyhemoglobin ABG pO2 ABG HCO3 ABG O2 Saturation ABG Base Excess ABG Sodium ABG Potassium ABG Chloride ABG Glucose Oxyhemoglobin Sodium Potassium 3.3 L D Chloride Carbon Dioxide BUN Creatinine 0.4 L Glucose POC Glucose 141 H Lactic Acid Calcium 8.1 L AST Phosphorus Total Protein 4.6 L Albumin 1.6 L C-Reactive Protein Arterial Blood Glucose Arterial Blood Ionized Calcium Urine WBC (Auto) Crossmatch 01/17/20 01/17/20 01/18/20 11:43 23:56 06:27 WBC RBC Hgb Hct MCHC RDW Plt Count MCH Lymph % (Auto) Lymph # Lymph # (Auto) Seg Neutrophils % Seg Neuts % (Manual) Lymphocytes % (Manual) Seg Neutrophils # Seg Neutrophils # Man Basophils % (Manual) Nucleated RBC % Lymphocytes # (Manual) Monocytes # (Manual) Basophils # (Manual) PT INR Heparin Anti-Xa Level POC ABG pO2 ABG pH ABG Hemoglobin ABG Oxyhemoglobin ABG pO2 ABG HCO3 ABG O2 Saturation ABG Base Excess ABG Sodium ABG Potassium ABG Chloride ABG Glucose Oxyhemoglobin Sodium Potassium Chloride Carbon Dioxide BUN Creatinine Glucose POC Glucose 137 H 215 H 122 H Lactic Acid Calcium AST Phosphorus Total Protein Albumin C-Reactive Protein Arterial Blood Glucose Arterial Blood Ionized Calcium Urine WBC (Auto) Crossmatch 01/18/20 01/18/20 01/18/20 07:31 07:31 11:39 WBC 12.1 H RBC 3.23 L Hgb 9.7 L Hct 28.7 L MCHC RDW Plt Count MCH Lymph % (Auto) 9.2 L Lymph # 1.1 L Lymph # (Auto) Seg Neutrophils % 85.0 H Seg Neuts % (Manual) Lymphocytes % (Manual) Seg Neutrophils # 10.3 H Seg Neutrophils # Man Basophils % (Manual) Nucleated RBC % Lymphocytes # (Manual) Monocytes # (Manual) Basophils # (Manual) PT INR Heparin Anti-Xa Level POC ABG pO2 ABG pH ABG Hemoglobin ABG Oxyhemoglobin ABG pO2 ABG HCO3 ABG O2 Saturation ABG Base Excess ABG Sodium ABG Potassium ABG Chloride ABG Glucose Oxyhemoglobin Sodium Potassium Chloride Carbon Dioxide BUN Creatinine 0.4 L Glucose 108 H POC Glucose 172 H Lactic Acid Calcium AST Phosphorus Total Protein 5.3 L Albumin 2.1 L C-Reactive Protein Arterial Blood Glucose Arterial Blood Ionized Calcium Urine WBC (Auto) Crossmatch 01/18/20 01/19/20 01/19/20 18:22 00:15 11:30 WBC RBC Hgb Hct MCHC RDW Plt Count MCH Lymph % (Auto) Lymph # Lymph # (Auto) Seg Neutrophils % Seg Neuts % (Manual) Lymphocytes % (Manual) Seg Neutrophils # Seg Neutrophils # Man Basophils % (Manual) Nucleated RBC % Lymphocytes # (Manual) Monocytes # (Manual) Basophils # (Manual) PT INR Heparin Anti-Xa Level POC ABG pO2 ABG pH ABG Hemoglobin ABG Oxyhemoglobin ABG pO2 ABG HCO3 ABG O2 Saturation ABG Base Excess ABG Sodium ABG Potassium ABG Chloride ABG Glucose Oxyhemoglobin Sodium Potassium Chloride Carbon Dioxide BUN Creatinine Glucose POC Glucose 119 H 135 H 163 H Lactic Acid Calcium AST Phosphorus Total Protein Albumin C-Reactive Protein Arterial Blood Glucose Arterial Blood Ionized Calcium Urine WBC (Auto) Crossmatch 01/19/20 01/19/20 01/20/20 17:44 22:59 03:44 WBC 11.1 H RBC 2.77 L Hgb 8.4 L Hct 25.0 L MCHC RDW Plt Count MCH Lymph % (Auto) Lymph # Lymph # (Auto) Seg Neutrophils % 74.6 H Seg Neuts % (Manual) Lymphocytes % (Manual) Seg Neutrophils # 8.3 H Seg Neutrophils # Man Basophils % (Manual) Nucleated RBC % Lymphocytes # (Manual) Monocytes # (Manual) Basophils # (Manual) PT INR Heparin Anti-Xa Level POC ABG pO2 ABG pH ABG Hemoglobin ABG Oxyhemoglobin ABG pO2 ABG HCO3 ABG O2 Saturation ABG Base Excess ABG Sodium ABG Potassium ABG Chloride ABG Glucose Oxyhemoglobin Sodium Potassium Chloride Carbon Dioxide BUN Creatinine Glucose POC Glucose 161 H 182 H Lactic Acid Calcium AST Phosphorus Total Protein Albumin C-Reactive Protein Arterial Blood Glucose Arterial Blood Ionized Calcium Urine WBC (Auto) Crossmatch 01/20/20 01/21/20 01/21/20 03:44 00:07 05:51 WBC RBC 2.84 L Hgb 8.6 L Hct 25.5 L MCHC RDW Plt Count 463 H MCH Lymph % (Auto) Lymph # Lymph # (Auto) Seg Neutrophils % 76.9 H Seg Neuts % (Manual) Lymphocytes % (Manual) Seg Neutrophils # 7.8 H Seg Neutrophils # Man Basophils % (Manual) Nucleated RBC % Lymphocytes # (Manual) Monocytes # (Manual) Basophils # (Manual) PT INR Heparin Anti-Xa Level POC ABG pO2 ABG pH ABG Hemoglobin ABG Oxyhemoglobin ABG pO2 ABG HCO3 ABG O2 Saturation ABG Base Excess ABG Sodium ABG Potassium ABG Chloride ABG Glucose Oxyhemoglobin Sodium Potassium Chloride Carbon Dioxide BUN Creatinine 0.4 L Glucose POC Glucose 68 L Lactic Acid Calcium 7.9 L AST Phosphorus Total Protein 4.7 L Albumin 1.9 L C-Reactive Protein Arterial Blood Glucose Arterial Blood Ionized Calcium Urine WBC (Auto) Crossmatch 01/21/20 01/21/20 01/21/20 05:51 05:58 11:25 WBC RBC Hgb Hct MCHC RDW Plt Count MCH Lymph % (Auto) Lymph # Lymph # (Auto) Seg Neutrophils % Seg Neuts % (Manual) Lymphocytes % (Manual) Seg Neutrophils # Seg Neutrophils # Man Basophils % (Manual) Nucleated RBC % Lymphocytes # (Manual) Monocytes # (Manual) Basophils # (Manual) PT INR Heparin Anti-Xa Level POC ABG pO2 ABG pH ABG Hemoglobin ABG Oxyhemoglobin ABG pO2 ABG HCO3 ABG O2 Saturation ABG Base Excess ABG Sodium ABG Potassium ABG Chloride ABG Glucose Oxyhemoglobin Sodium Potassium Chloride Carbon Dioxide 20 L BUN Creatinine 0.5 L Glucose 130 H POC Glucose 185 H 163 H Lactic Acid Calcium 7.6 L AST Phosphorus Total Protein 5.0 L Albumin 1.9 L C-Reactive Protein Arterial Blood Glucose Arterial Blood Ionized Calcium Urine WBC (Auto) Crossmatch 01/21/20 01/21/20 01/22/20 16:22 21:17 01:28 WBC RBC 2.60 L Hgb 8.0 L Hct 23.3 L MCHC RDW Plt Count MCH Lymph % (Auto) Lymph # Lymph # (Auto) Seg Neutrophils % 74.8 H Seg Neuts % (Manual) Lymphocytes % (Manual) Seg Neutrophils # Seg Neutrophils # Man Basophils % (Manual) Nucleated RBC % Lymphocytes # (Manual) Monocytes # (Manual) Basophils # (Manual) PT INR Heparin Anti-Xa Level POC ABG pO2 ABG pH ABG Hemoglobin ABG Oxyhemoglobin ABG pO2 ABG HCO3 ABG O2 Saturation ABG Base Excess ABG Sodium ABG Potassium ABG Chloride ABG Glucose Oxyhemoglobin Sodium Potassium Chloride Carbon Dioxide BUN Creatinine Glucose POC Glucose 177 H 67 L Lactic Acid Calcium AST Phosphorus Total Protein Albumin C-Reactive Protein Arterial Blood Glucose Arterial Blood Ionized Calcium Urine WBC (Auto) Crossmatch 01/22/20 01/22/20 01/22/20 01:28 01:28 12:06 WBC RBC Hgb Hct MCHC RDW Plt Count MCH Lymph % (Auto) Lymph # Lymph # (Auto) Seg Neutrophils % Seg Neuts % (Manual) Lymphocytes % (Manual) Seg Neutrophils # Seg Neutrophils # Man Basophils % (Manual) Nucleated RBC % Lymphocytes # (Manual) Monocytes # (Manual) Basophils # (Manual) PT INR Heparin Anti-Xa Level POC ABG pO2 ABG pH ABG Hemoglobin ABG Oxyhemoglobin ABG pO2 ABG HCO3 ABG O2 Saturation ABG Base Excess ABG Sodium ABG Potassium ABG Chloride ABG Glucose Oxyhemoglobin Sodium Potassium Chloride 107.6 H Carbon Dioxide BUN Creatinine 0.4 L Glucose 152 H POC Glucose 203 H 140 H Lactic Acid Calcium 7.5 L AST Phosphorus Total Protein 4.0 L Albumin 2.0 L C-Reactive Protein Arterial Blood Glucose Arterial Blood Ionized Calcium Urine WBC (Auto) Crossmatch 01/22/20 01/22/20 01/23/20 16:24 22:55 06:10 WBC RBC 2.68 L Hgb 8.6 L Hct 24.1 L MCHC 36 H RDW Plt Count MCH Lymph % (Auto) Lymph # Lymph # (Auto) Seg Neutrophils % Seg Neuts % (Manual) 71.0 H Lymphocytes % (Manual) Seg Neutrophils # Seg Neutrophils # Man Basophils % (Manual) Nucleated RBC % Lymphocytes # (Manual) Monocytes # (Manual) Basophils # (Manual) PT INR Heparin Anti-Xa Level POC ABG pO2 ABG pH ABG Hemoglobin ABG Oxyhemoglobin ABG pO2 ABG HCO3 ABG O2 Saturation ABG Base Excess ABG Sodium ABG Potassium ABG Chloride ABG Glucose Oxyhemoglobin Sodium Potassium Chloride Carbon Dioxide BUN Creatinine Glucose POC Glucose 205 H 196 H Lactic Acid Calcium AST Phosphorus Total Protein Albumin C-Reactive Protein Arterial Blood Glucose Arterial Blood Ionized Calcium Urine WBC (Auto) Crossmatch 01/23/20 01/23/20 01/23/20 06:10 07:35 11:59 WBC RBC Hgb Hct MCHC RDW Plt Count MCH Lymph % (Auto) Lymph # Lymph # (Auto) Seg Neutrophils % Seg Neuts % (Manual) Lymphocytes % (Manual) Seg Neutrophils # Seg Neutrophils # Man Basophils % (Manual) Nucleated RBC % Lymphocytes # (Manual) Monocytes # (Manual) Basophils # (Manual) PT INR Heparin Anti-Xa Level POC ABG pO2 ABG pH ABG Hemoglobin ABG Oxyhemoglobin ABG pO2 ABG HCO3 ABG O2 Saturation ABG Base Excess ABG Sodium ABG Potassium ABG Chloride ABG Glucose Oxyhemoglobin Sodium Potassium Chloride 108.8 H Carbon Dioxide BUN Creatinine 0.4 L Glucose 105 H POC Glucose 111 H 123 H Lactic Acid Calcium 8.0 L AST Phosphorus Total Protein 4.9 L D Albumin 2.0 L C-Reactive Protein Arterial Blood Glucose Arterial Blood Ionized Calcium Urine WBC (Auto) Crossmatch 01/23/20 01/24/20 01/24/20 22:45 11:24 16:41 WBC RBC Hgb Hct MCHC RDW Plt Count MCH Lymph % (Auto) Lymph # Lymph # (Auto) Seg Neutrophils % Seg Neuts % (Manual) Lymphocytes % (Manual) Seg Neutrophils # Seg Neutrophils # Man Basophils % (Manual) Nucleated RBC % Lymphocytes # (Manual) Monocytes # (Manual) Basophils # (Manual) PT INR Heparin Anti-Xa Level POC ABG pO2 ABG pH ABG Hemoglobin ABG Oxyhemoglobin ABG pO2 ABG HCO3 ABG O2 Saturation ABG Base Excess ABG Sodium ABG Potassium ABG Chloride ABG Glucose Oxyhemoglobin Sodium Potassium Chloride Carbon Dioxide BUN Creatinine Glucose POC Glucose 180 H 182 H 177 H Lactic Acid Calcium AST Phosphorus Total Protein Albumin C-Reactive Protein Arterial Blood Glucose Arterial Blood Ionized Calcium Urine WBC (Auto) Crossmatch 01/24/20 01/25/20 01/25/20 23:11 07:12 11:35 WBC RBC Hgb Hct MCHC RDW Plt Count MCH Lymph % (Auto) Lymph # Lymph # (Auto) Seg Neutrophils % Seg Neuts % (Manual) Lymphocytes % (Manual) Seg Neutrophils # Seg Neutrophils # Man Basophils % (Manual) Nucleated RBC % Lymphocytes # (Manual) Monocytes # (Manual) Basophils # (Manual) PT INR Heparin Anti-Xa Level POC ABG pO2 ABG pH ABG Hemoglobin ABG Oxyhemoglobin ABG pO2 ABG HCO3 ABG O2 Saturation ABG Base Excess ABG Sodium ABG Potassium ABG Chloride ABG Glucose Oxyhemoglobin Sodium Potassium Chloride Carbon Dioxide BUN Creatinine Glucose POC Glucose 142 H 135 H 142 H Lactic Acid Calcium AST Phosphorus Total Protein Albumin C-Reactive Protein Arterial Blood Glucose Arterial Blood Ionized Calcium Urine WBC (Auto) Crossmatch 01/25/20 01/26/20 01/26/20 16:33 00:04 11:35 WBC RBC Hgb Hct MCHC RDW Plt Count MCH Lymph % (Auto) Lymph # Lymph # (Auto) Seg Neutrophils % Seg Neuts % (Manual) Lymphocytes % (Manual) Seg Neutrophils # Seg Neutrophils # Man Basophils % (Manual) Nucleated RBC % Lymphocytes # (Manual) Monocytes # (Manual) Basophils # (Manual) PT INR Heparin Anti-Xa Level POC ABG pO2 ABG pH ABG Hemoglobin ABG Oxyhemoglobin ABG pO2 ABG HCO3 ABG O2 Saturation ABG Base Excess ABG Sodium ABG Potassium ABG Chloride ABG Glucose Oxyhemoglobin Sodium Potassium Chloride Carbon Dioxide BUN Creatinine Glucose POC Glucose 247 H 233 H 200 H Lactic Acid Calcium AST Phosphorus Total Protein Albumin C-Reactive Protein Arterial Blood Glucose Arterial Blood Ionized Calcium Urine WBC (Auto) Crossmatch 01/26/20 01/26/20 01/26/20 16:30 16:30 17:19 WBC RBC Hgb 7.4 L Hct 22.0 L MCHC RDW Plt Count MCH Lymph % (Auto) Lymph # Lymph # (Auto) Seg Neutrophils % Seg Neuts % (Manual) Lymphocytes % (Manual) Seg Neutrophils # Seg Neutrophils # Man Basophils % (Manual) Nucleated RBC % Lymphocytes # (Manual) Monocytes # (Manual) Basophils # (Manual) PT 18.4 H INR 1.50 H Heparin Anti-Xa Level POC ABG pO2 ABG pH ABG Hemoglobin ABG Oxyhemoglobin ABG pO2 ABG HCO3 ABG O2 Saturation ABG Base Excess ABG Sodium ABG Potassium ABG Chloride ABG Glucose Oxyhemoglobin Sodium Potassium Chloride Carbon Dioxide BUN Creatinine Glucose POC Glucose 67 L Lactic Acid Calcium AST Phosphorus Total Protein Albumin C-Reactive Protein Arterial Blood Glucose Arterial Blood Ionized Calcium Urine WBC (Auto) Crossmatch 01/26/20 01/26/20 01/27/20 20:24 21:32 00:16 WBC RBC Hgb Hct MCHC RDW Plt Count MCH Lymph % (Auto) Lymph # Lymph # (Auto) Seg Neutrophils % Seg Neuts % (Manual) Lymphocytes % (Manual) Seg Neutrophils # Seg Neutrophils # Man Basophils % (Manual) Nucleated RBC % Lymphocytes # (Manual) Monocytes # (Manual) Basophils # (Manual) PT INR Heparin Anti-Xa Level POC ABG pO2 51.8 L ABG pH ABG Hemoglobin 8.5 L ABG Oxyhemoglobin 84.7 L ABG pO2 ABG HCO3 ABG O2 Saturation ABG Base Excess ABG Sodium ABG Potassium ABG Chloride ABG Glucose Oxyhemoglobin Sodium Potassium Chloride Carbon Dioxide BUN Creatinine Glucose POC Glucose 162 H 141 H Lactic Acid Calcium AST Phosphorus Total Protein Albumin C-Reactive Protein Arterial Blood Glucose Arterial Blood Ionized Calcium Urine WBC (Auto) Crossmatch 01/27/20 01/27/20 01/27/20 01:42 02:18 05:57 WBC RBC Hgb Hct MCHC RDW Plt Count MCH Lymph % (Auto) Lymph # Lymph # (Auto) Seg Neutrophils % Seg Neuts % (Manual) Lymphocytes % (Manual) Seg Neutrophils # Seg Neutrophils # Man Basophils % (Manual) Nucleated RBC % Lymphocytes # (Manual) Monocytes # (Manual) Basophils # (Manual) PT INR Heparin Anti-Xa Level 2.00 H POC ABG pO2 ABG pH ABG Hemoglobin ABG Oxyhemoglobin ABG pO2 ABG HCO3 ABG O2 Saturation ABG Base Excess ABG Sodium ABG Potassium ABG Chloride ABG Glucose Oxyhemoglobin Sodium Potassium Chloride Carbon Dioxide BUN Creatinine Glucose POC Glucose 183 H 124 H Lactic Acid Calcium AST Phosphorus Total Protein Albumin C-Reactive Protein Arterial Blood Glucose Arterial Blood Ionized Calcium Urine WBC (Auto) Crossmatch 01/27/20 01/27/20 01/27/20 06:30 06:30 12:23 WBC RBC 2.75 L Hgb 8.4 L Hct 24.9 L MCHC RDW 16.0 H Plt Count 474 H MCH Lymph % (Auto) 12.7 L Lymph # Lymph # (Auto) Seg Neutrophils % 83.2 H Seg Neuts % (Manual) Lymphocytes % (Manual) Seg Neutrophils # 8.4 H Seg Neutrophils # Man Basophils % (Manual) Nucleated RBC % Lymphocytes # (Manual) Monocytes # (Manual) Basophils # (Manual) PT INR Heparin Anti-Xa Level POC ABG pO2 ABG pH ABG Hemoglobin ABG Oxyhemoglobin ABG pO2 ABG HCO3 ABG O2 Saturation ABG Base Excess ABG Sodium ABG Potassium ABG Chloride ABG Glucose Oxyhemoglobin Sodium Potassium 3.5 L Chloride 110.2 H Carbon Dioxide BUN Creatinine 0.4 L Glucose 101 H POC Glucose 126 H Lactic Acid Calcium 7.8 L AST Phosphorus Total Protein Albumin C-Reactive Protein Arterial Blood Glucose Arterial Blood Ionized Calcium Urine WBC (Auto) Crossmatch 01/27/20 01/27/20 01/28/20 17:31 23:40 00:00 WBC RBC Hgb Hct MCHC RDW Plt Count MCH Lymph % (Auto) Lymph # Lymph # (Auto) Seg Neutrophils % Seg Neuts % (Manual) Lymphocytes % (Manual) Seg Neutrophils # Seg Neutrophils # Man Basophils % (Manual) Nucleated RBC % Lymphocytes # (Manual) Monocytes # (Manual) Basophils # (Manual) PT INR Heparin Anti-Xa Level 2.00 H POC ABG pO2 ABG pH ABG Hemoglobin ABG Oxyhemoglobin ABG pO2 ABG HCO3 ABG O2 Saturation ABG Base Excess ABG Sodium ABG Potassium ABG Chloride ABG Glucose Oxyhemoglobin Sodium Potassium Chloride Carbon Dioxide BUN Creatinine Glucose POC Glucose 133 H 136 H Lactic Acid Calcium AST Phosphorus Total Protein Albumin C-Reactive Protein Arterial Blood Glucose Arterial Blood Ionized Calcium Urine WBC (Auto) Crossmatch 01/28/20 01/28/20 01/28/20 04:26 04:26 05:35 WBC RBC Hgb 9.6 L Hct 28.5 L MCHC RDW Plt Count 508 H MCH Lymph % (Auto) Lymph # Lymph # (Auto) Seg Neutrophils % Seg Neuts % (Manual) Lymphocytes % (Manual) Seg Neutrophils # Seg Neutrophils # Man Basophils % (Manual) Nucleated RBC % Lymphocytes # (Manual) Monocytes # (Manual) Basophils # (Manual) PT INR Heparin Anti-Xa Level POC ABG pO2 ABG pH ABG Hemoglobin ABG Oxyhemoglobin ABG pO2 ABG HCO3 ABG O2 Saturation ABG Base Excess ABG Sodium ABG Potassium ABG Chloride ABG Glucose Oxyhemoglobin Sodium Potassium Chloride Carbon Dioxide 19 L BUN 20 H Creatinine 0.5 L Glucose 103 H POC Glucose 135 H Lactic Acid Calcium 7.9 L AST Phosphorus Total Protein Albumin C-Reactive Protein Arterial Blood Glucose Arterial Blood Ionized Calcium Urine WBC (Auto) Crossmatch 01/28/20 01/28/20 01/28/20 08:50 11:10 11:51 WBC RBC Hgb Hct MCHC RDW Plt Count MCH Lymph % (Auto) Lymph # Lymph # (Auto) Seg Neutrophils % Seg Neuts % (Manual) Lymphocytes % (Manual) Seg Neutrophils # Seg Neutrophils # Man Basophils % (Manual) Nucleated RBC % Lymphocytes # (Manual) Monocytes # (Manual) Basophils # (Manual) PT INR Heparin Anti-Xa Level 0.74 H POC ABG pO2 67.2 L ABG pH ABG Hemoglobin 9.3 L ABG Oxyhemoglobin ABG pO2 ABG HCO3 ABG O2 Saturation ABG Base Excess ABG Sodium ABG Potassium ABG Chloride ABG Glucose Oxyhemoglobin Sodium Potassium Chloride Carbon Dioxide BUN Creatinine Glucose POC Glucose 160 H Lactic Acid Calcium AST Phosphorus Total Protein Albumin C-Reactive Protein Arterial Blood Glucose Arterial Blood Ionized Calcium Urine WBC (Auto) Crossmatch 01/28/20 01/28/20 01/29/20 17:19 23:53 03:52 WBC RBC Hgb Hct MCHC RDW Plt Count MCH Lymph % (Auto) Lymph # Lymph # (Auto) Seg Neutrophils % Seg Neuts % (Manual) Lymphocytes % (Manual) Seg Neutrophils # Seg Neutrophils # Man Basophils % (Manual) Nucleated RBC % Lymphocytes # (Manual) Monocytes # (Manual) Basophils # (Manual) PT INR Heparin Anti-Xa Level POC ABG pO2 ABG pH 7.510 H ABG Hemoglobin 7.3 L ABG Oxyhemoglobin ABG pO2 357.0 H ABG HCO3 19.6 L ABG O2 Saturation 99.6 H ABG Base Excess -2.9 L ABG Sodium ABG Potassium ABG Chloride ABG Glucose Oxyhemoglobin Sodium Potassium Chloride Carbon Dioxide BUN Creatinine Glucose POC Glucose 177 H 142 H Lactic Acid Calcium AST Phosphorus Total Protein Albumin C-Reactive Protein Arterial Blood Glucose Arterial Blood Ionized Calcium Urine WBC (Auto) Crossmatch 01/29/20 01/29/20 01/29/20 04:58 04:58 06:01 WBC 13.1 H RBC 2.75 L Hgb 8.6 L Hct 25.6 L MCHC RDW 17.7 H Plt Count MCH Lymph % (Auto) Lymph # Lymph # (Auto) Seg Neutrophils % Seg Neuts % (Manual) 91.0 H Lymphocytes % (Manual) 6.0 L Seg Neutrophils # Seg Neutrophils # Man 11.9 H Basophils % (Manual) Nucleated RBC % 1.0 H Lymphocytes # (Manual) 0.8 L Monocytes # (Manual) Basophils # (Manual) PT INR Heparin Anti-Xa Level POC ABG pO2 ABG pH ABG Hemoglobin ABG Oxyhemoglobin ABG pO2 ABG HCO3 ABG O2 Saturation ABG Base Excess ABG Sodium ABG Potassium ABG Chloride ABG Glucose Oxyhemoglobin Sodium 148 H Potassium 3.5 L D Chloride 113.2 H Carbon Dioxide 21 L BUN 20 H Creatinine Glucose 137 H POC Glucose 167 H Lactic Acid Calcium 8.1 L AST Phosphorus Total Protein Albumin C-Reactive Protein Arterial Blood Glucose Arterial Blood Ionized Calcium Urine WBC (Auto) Crossmatch 01/29/20 01/29/20 01/29/20 11:45 17:52 23:49 WBC RBC Hgb Hct MCHC RDW Plt Count MCH Lymph % (Auto) Lymph # Lymph # (Auto) Seg Neutrophils % Seg Neuts % (Manual) Lymphocytes % (Manual) Seg Neutrophils # Seg Neutrophils # Man Basophils % (Manual) Nucleated RBC % Lymphocytes # (Manual) Monocytes # (Manual) Basophils # (Manual) PT INR Heparin Anti-Xa Level POC ABG pO2 ABG pH ABG Hemoglobin ABG Oxyhemoglobin ABG pO2 ABG HCO3 ABG O2 Saturation ABG Base Excess ABG Sodium ABG Potassium ABG Chloride ABG Glucose Oxyhemoglobin Sodium Potassium Chloride Carbon Dioxide BUN Creatinine Glucose POC Glucose 185 H 226 H 141 H Lactic Acid Calcium AST Phosphorus Total Protein Albumin C-Reactive Protein Arterial Blood Glucose Arterial Blood Ionized Calcium Urine WBC (Auto) Crossmatch 01/29/20 01/30/20 01/30/20 Unknown 03:24 04:00 WBC RBC Hgb 7.8 L Hct 23.5 L MCHC RDW Plt Count MCH Lymph % (Auto) Lymph # Lymph # (Auto) Seg Neutrophils % Seg Neuts % (Manual) Lymphocytes % (Manual) Seg Neutrophils # Seg Neutrophils # Man Basophils % (Manual) Nucleated RBC % Lymphocytes # (Manual) Monocytes # (Manual) Basophils # (Manual) PT INR Heparin Anti-Xa Level POC ABG pO2 ABG pH 7.485 H ABG Hemoglobin 6.7 L ABG Oxyhemoglobin ABG pO2 102.0 H ABG HCO3 ABG O2 Saturation ABG Base Excess ABG Sodium ABG Potassium ABG Chloride ABG Glucose Oxyhemoglobin Sodium Potassium Chloride Carbon Dioxide BUN Creatinine Glucose POC Glucose Lactic Acid Calcium AST Phosphorus Total Protein Albumin C-Reactive Protein 14.80 H Arterial Blood Glucose Arterial Blood Ionized Calcium Urine WBC (Auto) Crossmatch 01/30/20 01/30/20 01/30/20 05:50 11:15 17:07 WBC RBC Hgb Hct MCHC RDW Plt Count MCH Lymph % (Auto) Lymph # Lymph # (Auto) Seg Neutrophils % Seg Neuts % (Manual) Lymphocytes % (Manual) Seg Neutrophils # Seg Neutrophils # Man Basophils % (Manual) Nucleated RBC % Lymphocytes # (Manual) Monocytes # (Manual) Basophils # (Manual) PT INR Heparin Anti-Xa Level POC ABG pO2 ABG pH ABG Hemoglobin ABG Oxyhemoglobin ABG pO2 ABG HCO3 ABG O2 Saturation ABG Base Excess ABG Sodium ABG Potassium ABG Chloride ABG Glucose Oxyhemoglobin Sodium Potassium Chloride Carbon Dioxide BUN Creatinine Glucose POC Glucose 122 H 207 H 124 H Lactic Acid Calcium AST Phosphorus Total Protein Albumin C-Reactive Protein Arterial Blood Glucose Arterial Blood Ionized Calcium Urine WBC (Auto) Crossmatch 01/30/20 01/31/20 01/31/20 17:08 00:10 04:52 WBC RBC Hgb Hct MCHC RDW Plt Count MCH Lymph % (Auto) Lymph # Lymph # (Auto) Seg Neutrophils % Seg Neuts % (Manual) Lymphocytes % (Manual) Seg Neutrophils # Seg Neutrophils # Man Basophils % (Manual) Nucleated RBC % Lymphocytes # (Manual) Monocytes # (Manual) Basophils # (Manual) PT INR Heparin Anti-Xa Level POC ABG pO2 ABG pH 7.504 H 7.486 H ABG Hemoglobin 7.4 L 6.2 L ABG Oxyhemoglobin ABG pO2 169.2 H 121.7 H ABG HCO3 27.1 H ABG O2 Saturation 99.1 H ABG Base Excess 3.4 H ABG Sodium ABG Potassium ABG Chloride ABG Glucose Oxyhemoglobin Sodium Potassium Chloride Carbon Dioxide BUN Creatinine Glucose POC Glucose 191 H Lactic Acid Calcium AST Phosphorus Total Protein Albumin C-Reactive Protein Arterial Blood Glucose Arterial Blood Ionized Calcium Urine WBC (Auto) Crossmatch 01/31/20 01/31/20 01/31/20 05:37 11:59 12:40 WBC RBC 2.41 L Hgb 7.5 L Hct 22.3 L MCHC RDW 22.2 H Plt Count MCH Lymph % (Auto) Lymph # Lymph # (Auto) Seg Neutrophils % Seg Neuts % (Manual) 94.0 H Lymphocytes % (Manual) 2.0 L Seg Neutrophils # Seg Neutrophils # Man 9.4 H Basophils % (Manual) Nucleated RBC % Lymphocytes # (Manual) 0.2 L Monocytes # (Manual) Basophils # (Manual) PT INR Heparin Anti-Xa Level POC ABG pO2 ABG pH ABG Hemoglobin ABG Oxyhemoglobin ABG pO2 ABG HCO3 ABG O2 Saturation ABG Base Excess ABG Sodium ABG Potassium ABG Chloride ABG Glucose Oxyhemoglobin Sodium Potassium Chloride Carbon Dioxide BUN Creatinine Glucose POC Glucose 175 H 220 H Lactic Acid Calcium AST Phosphorus Total Protein Albumin C-Reactive Protein Arterial Blood Glucose Arterial Blood Ionized Calcium Urine WBC (Auto) Crossmatch 01/31/20 01/31/20 01/31/20 12:40 14:40 18:18 WBC RBC Hgb Hct MCHC RDW Plt Count MCH Lymph % (Auto) Lymph # Lymph # (Auto) Seg Neutrophils % Seg Neuts % (Manual) Lymphocytes % (Manual) Seg Neutrophils # Seg Neutrophils # Man Basophils % (Manual) Nucleated RBC % Lymphocytes # (Manual) Monocytes # (Manual) Basophils # (Manual) PT INR Heparin Anti-Xa Level POC ABG pO2 124.7 H ABG pH 7.542 H ABG Hemoglobin 7.8 L ABG Oxyhemoglobin ABG pO2 ABG HCO3 ABG O2 Saturation ABG Base Excess ABG Sodium ABG Potassium ABG Chloride ABG Glucose Oxyhemoglobin Sodium 151 H Potassium 2.1 L* D Chloride 108.9 H Carbon Dioxide BUN 22 H Creatinine Glucose 194 H POC Glucose 181 H Lactic Acid Calcium 8.1 L AST Phosphorus Total Protein 4.8 L Albumin 2.3 L C-Reactive Protein Arterial Blood Glucose Arterial Blood Ionized Calcium Urine WBC (Auto) Crossmatch 02/01/20 02/01/20 02/01/20 00:11 03:14 04:32 WBC 11.9 H RBC 2.47 L Hgb 7.6 L Hct 22.8 L MCHC RDW 22.7 H Plt Count MCH Lymph % (Auto) Lymph # Lymph # (Auto) Seg Neutrophils % Seg Neuts % (Manual) 90.0 H Lymphocytes % (Manual) 5.0 L Seg Neutrophils # Seg Neutrophils # Man 10.7 H Basophils % (Manual) Nucleated RBC % Lymphocytes # (Manual) 0.6 L Monocytes # (Manual) Basophils # (Manual) PT INR Heparin Anti-Xa Level POC ABG pO2 ABG pH 7.564 H ABG Hemoglobin 7.6 L ABG Oxyhemoglobin ABG pO2 124.1 H ABG HCO3 29.6 H ABG O2 Saturation ABG Base Excess 7.0 H ABG Sodium ABG Potassium ABG Chloride ABG Glucose Oxyhemoglobin Sodium Potassium Chloride Carbon Dioxide BUN Creatinine Glucose POC Glucose 190 H Lactic Acid Calcium AST Phosphorus Total Protein Albumin C-Reactive Protein Arterial Blood Glucose Arterial Blood Ionized Calcium Urine WBC (Auto) Crossmatch 02/01/20 02/01/20 02/01/20 04:32 05:28 11:56 WBC RBC Hgb Hct MCHC RDW Plt Count MCH Lymph % (Auto) Lymph # Lymph # (Auto) Seg Neutrophils % Seg Neuts % (Manual) Lymphocytes % (Manual) Seg Neutrophils # Seg Neutrophils # Man Basophils % (Manual) Nucleated RBC % Lymphocytes # (Manual) Monocytes # (Manual) Basophils # (Manual) PT INR Heparin Anti-Xa Level POC ABG pO2 ABG pH ABG Hemoglobin ABG Oxyhemoglobin ABG pO2 ABG HCO3 ABG O2 Saturation ABG Base Excess ABG Sodium ABG Potassium ABG Chloride ABG Glucose Oxyhemoglobin Sodium 149 H Potassium 2.6 L* D Chloride Carbon Dioxide 33 H BUN 23 H Creatinine 0.5 L Glucose 174 H POC Glucose 187 H 195 H Lactic Acid Calcium 8.0 L AST Phosphorus 1.60 L Total Protein Albumin C-Reactive Protein Arterial Blood Glucose Arterial Blood Ionized Calcium Urine WBC (Auto) Crossmatch 02/01/20 02/01/20 02/02/20 18:15 23:35 04:33 WBC RBC Hgb Hct MCHC RDW Plt Count MCH Lymph % (Auto) Lymph # Lymph # (Auto) Seg Neutrophils % Seg Neuts % (Manual) Lymphocytes % (Manual) Seg Neutrophils # Seg Neutrophils # Man Basophils % (Manual) Nucleated RBC % Lymphocytes # (Manual) Monocytes # (Manual) Basophils # (Manual) PT INR Heparin Anti-Xa Level POC ABG pO2 ABG pH 7.549 H ABG Hemoglobin 9.8 L ABG Oxyhemoglobin ABG pO2 ABG HCO3 ABG O2 Saturation ABG Base Excess ABG Sodium ABG Potassium ABG Chloride ABG Glucose Oxyhemoglobin Sodium Potassium Chloride Carbon Dioxide BUN Creatinine Glucose POC Glucose 226 H 252 H Lactic Acid Calcium AST Phosphorus Total Protein Albumin C-Reactive Protein Arterial Blood Glucose Arterial Blood Ionized Calcium Urine WBC (Auto) Crossmatch 02/02/20 02/02/20 02/02/20 05:25 05:25 05:40 WBC 15.5 H RBC 2.43 L Hgb 7.6 L Hct 22.9 L MCHC RDW 23.6 H Plt Count MCH Lymph % (Auto) Lymph # Lymph # (Auto) Seg Neutrophils % Seg Neuts % (Manual) 89.0 H Lymphocytes % (Manual) 3.0 L Seg Neutrophils # Seg Neutrophils # Man 13.8 H Basophils % (Manual) Nucleated RBC % Lymphocytes # (Manual) 0.5 L Monocytes # (Manual) 0.9 H Basophils # (Manual) PT INR Heparin Anti-Xa Level POC ABG pO2 ABG pH ABG Hemoglobin ABG Oxyhemoglobin ABG pO2 ABG HCO3 ABG O2 Saturation ABG Base Excess ABG Sodium ABG Potassium ABG Chloride ABG Glucose Oxyhemoglobin Sodium Potassium 2.6 L* Chloride Carbon Dioxide 33 H BUN 26 H Creatinine Glucose 175 H POC Glucose 181 H Lactic Acid Calcium 7.9 L AST Phosphorus Total Protein Albumin C-Reactive Protein Arterial Blood Glucose Arterial Blood Ionized Calcium Urine WBC (Auto) Crossmatch 02/02/20 02/02/20 02/02/20 11:55 14:45 17:18 WBC RBC Hgb Hct MCHC RDW Plt Count MCH Lymph % (Auto) Lymph # Lymph # (Auto) Seg Neutrophils % Seg Neuts % (Manual) Lymphocytes % (Manual) Seg Neutrophils # Seg Neutrophils # Man Basophils % (Manual) Nucleated RBC % Lymphocytes # (Manual) Monocytes # (Manual) Basophils # (Manual) PT INR Heparin Anti-Xa Level POC ABG pO2 ABG pH 7.56 H ABG Hemoglobin 7.6 L ABG Oxyhemoglobin ABG pO2 ABG HCO3 ABG O2 Saturation ABG Base Excess ABG Sodium ABG Potassium ABG Chloride ABG Glucose Oxyhemoglobin Sodium Potassium Chloride Carbon Dioxide BUN Creatinine Glucose POC Glucose 226 H 227 H Lactic Acid Calcium AST Phosphorus Total Protein Albumin C-Reactive Protein Arterial Blood Glucose Arterial Blood Ionized Calcium Urine WBC (Auto) Crossmatch 02/02/20 02/03/20 02/03/20 20:54 00:02 05:14 WBC 18.7 H RBC 2.45 L Hgb 7.6 L Hct 23.2 L MCHC RDW 23.5 H Plt Count MCH Lymph % (Auto) Lymph # Lymph # (Auto) Seg Neutrophils % Seg Neuts % (Manual) 94.0 H Lymphocytes % (Manual) 3.0 L Seg Neutrophils # Seg Neutrophils # Man 17.6 H Basophils % (Manual) Nucleated RBC % Lymphocytes # (Manual) 0.6 L Monocytes # (Manual) Basophils # (Manual) PT INR Heparin Anti-Xa Level POC ABG pO2 ABG pH ABG Hemoglobin ABG Oxyhemoglobin ABG pO2 ABG HCO3 ABG O2 Saturation ABG Base Excess ABG Sodium ABG Potassium ABG Chloride ABG Glucose Oxyhemoglobin Sodium Potassium 3.2 L D Chloride Carbon Dioxide BUN Creatinine Glucose POC Glucose 204 H Lactic Acid Calcium AST Phosphorus Total Protein Albumin C-Reactive Protein Arterial Blood Glucose Arterial Blood Ionized Calcium Urine WBC (Auto) Crossmatch 02/03/20 02/03/20 02/03/20 05:14 05:14 05:20 WBC RBC Hgb Hct MCHC RDW Plt Count MCH Lymph % (Auto) Lymph # Lymph # (Auto) Seg Neutrophils % Seg Neuts % (Manual) Lymphocytes % (Manual) Seg Neutrophils # Seg Neutrophils # Man Basophils % (Manual) Nucleated RBC % Lymphocytes # (Manual) Monocytes # (Manual) Basophils # (Manual) PT INR Heparin Anti-Xa Level POC ABG pO2 ABG pH ABG Hemoglobin ABG Oxyhemoglobin ABG pO2 ABG HCO3 ABG O2 Saturation ABG Base Excess ABG Sodium ABG Potassium ABG Chloride ABG Glucose Oxyhemoglobin Sodium Potassium 3.1 L Chloride Carbon Dioxide 33 H BUN 29 H Creatinine 0.5 L Glucose 160 H POC Glucose 146 H Lactic Acid Calcium 7.9 L AST Phosphorus 2.30 L Total Protein 4.8 L Albumin 2.4 L C-Reactive Protein Arterial Blood Glucose Arterial Blood Ionized Calcium Urine WBC (Auto) Crossmatch 02/03/20 02/03/20 02/03/20 12:35 18:14 23:26 WBC RBC Hgb Hct MCHC RDW Plt Count MCH Lymph % (Auto) Lymph # Lymph # (Auto) Seg Neutrophils % Seg Neuts % (Manual) Lymphocytes % (Manual) Seg Neutrophils # Seg Neutrophils # Man Basophils % (Manual) Nucleated RBC % Lymphocytes # (Manual) Monocytes # (Manual) Basophils # (Manual) PT INR Heparin Anti-Xa Level POC ABG pO2 ABG pH ABG Hemoglobin ABG Oxyhemoglobin ABG pO2 ABG HCO3 ABG O2 Saturation ABG Base Excess ABG Sodium ABG Potassium ABG Chloride ABG Glucose Oxyhemoglobin Sodium Potassium Chloride Carbon Dioxide BUN Creatinine Glucose POC Glucose 219 H 248 H 173 H Lactic Acid Calcium AST Phosphorus Total Protein Albumin C-Reactive Protein Arterial Blood Glucose Arterial Blood Ionized Calcium Urine WBC (Auto) Crossmatch 02/04/20 02/04/20 02/04/20 05:34 05:36 06:51 WBC RBC Hgb Hct MCHC RDW Plt Count MCH Lymph % (Auto) Lymph # Lymph # (Auto) Seg Neutrophils % Seg Neuts % (Manual) Lymphocytes % (Manual) Seg Neutrophils # Seg Neutrophils # Man Basophils % (Manual) Nucleated RBC % Lymphocytes # (Manual) Monocytes # (Manual) Basophils # (Manual) PT INR Heparin Anti-Xa Level POC ABG pO2 ABG pH ABG Hemoglobin ABG Oxyhemoglobin ABG pO2 ABG HCO3 ABG O2 Saturation ABG Base Excess ABG Sodium ABG Potassium ABG Chloride ABG Glucose Oxyhemoglobin Sodium Potassium Chloride Carbon Dioxide BUN Creatinine Glucose POC Glucose 56 L 64 L 127 H Lactic Acid Calcium AST Phosphorus Total Protein Albumin C-Reactive Protein Arterial Blood Glucose Arterial Blood Ionized Calcium Urine WBC (Auto) Crossmatch 02/04/20 02/04/20 02/04/20 11:57 13:42 13:53 WBC 19.2 H RBC 2.48 L Hgb 7.8 L Hct 23.5 L MCHC RDW 24.2 H Plt Count MCH Lymph % (Auto) Lymph # Lymph # (Auto) Seg Neutrophils % Seg Neuts % (Manual) 97.0 H Lymphocytes % (Manual) 2.0 L Seg Neutrophils # Seg Neutrophils # Man 18.6 H Basophils % (Manual) Nucleated RBC % Lymphocytes # (Manual) 0.4 L Monocytes # (Manual) Basophils # (Manual) PT INR Heparin Anti-Xa Level POC ABG pO2 118.2 H ABG pH 7.525 H ABG Hemoglobin 8.7 L ABG Oxyhemoglobin ABG pO2 ABG HCO3 ABG O2 Saturation ABG Base Excess ABG Sodium ABG Potassium 2.8 L ABG Chloride ABG Glucose 185 H Oxyhemoglobin Sodium Potassium Chloride Carbon Dioxide BUN Creatinine Glucose POC Glucose 224 H Lactic Acid Calcium AST Phosphorus Total Protein Albumin C-Reactive Protein Arterial Blood Glucose 185 H Arterial Blood Ionized Calcium 4.5 L Urine WBC (Auto) Crossmatch 02/04/20 02/04/20 02/04/20 13:53 18:15 23:35 WBC RBC Hgb Hct MCHC RDW Plt Count MCH Lymph % (Auto) Lymph # Lymph # (Auto) Seg Neutrophils % Seg Neuts % (Manual) Lymphocytes % (Manual) Seg Neutrophils # Seg Neutrophils # Man Basophils % (Manual) Nucleated RBC % Lymphocytes # (Manual) Monocytes # (Manual) Basophils # (Manual) PT INR Heparin Anti-Xa Level POC ABG pO2 ABG pH ABG Hemoglobin ABG Oxyhemoglobin ABG pO2 ABG HCO3 ABG O2 Saturation ABG Base Excess ABG Sodium ABG Potassium ABG Chloride ABG Glucose Oxyhemoglobin Sodium 147 H Potassium 2.8 L* Chloride Carbon Dioxide 38 H BUN 33 H Creatinine 0.5 L Glucose 202 H POC Glucose 215 H 197 H Lactic Acid Calcium AST Phosphorus Total Protein Albumin C-Reactive Protein Arterial Blood Glucose Arterial Blood Ionized Calcium Urine WBC (Auto) Crossmatch 02/05/20 02/05/20 02/05/20 01:03 04:00 04:00 WBC 26.7 H RBC 2.59 L Hgb 8.1 L Hct 24.6 L MCHC RDW 24.1 H Plt Count MCH Lymph % (Auto) 1.6 L Lymph # Lymph # (Auto) 0.4 L Seg Neutrophils % Seg Neuts % (Manual) Lymphocytes % (Manual) Seg Neutrophils # 25.9 H Seg Neutrophils # Man Basophils % (Manual) Nucleated RBC % Lymphocytes # (Manual) Monocytes # (Manual) Basophils # (Manual) PT INR Heparin Anti-Xa Level POC ABG pO2 ABG pH ABG Hemoglobin 7.1 L ABG Oxyhemoglobin ABG pO2 50.7 L ABG HCO3 29.6 H ABG O2 Saturation 82.7 L ABG Base Excess 4.8 H ABG Sodium ABG Potassium ABG Chloride ABG Glucose Oxyhemoglobin 81.0 L Sodium 146 H Potassium Chloride Carbon Dioxide 32 H BUN 35 H Creatinine 0.5 L Glucose 226 H POC Glucose Lactic Acid Calcium AST Phosphorus Total Protein 5.1 L Albumin 2.2 L C-Reactive Protein Arterial Blood Glucose Arterial Blood Ionized Calcium Urine WBC (Auto) Crossmatch 02/05/20 02/05/20 02/06/20 05:32 17:56 00:19 WBC RBC Hgb Hct MCHC RDW Plt Count MCH Lymph % (Auto) Lymph # Lymph # (Auto) Seg Neutrophils % Seg Neuts % (Manual) Lymphocytes % (Manual) Seg Neutrophils # Seg Neutrophils # Man Basophils % (Manual) Nucleated RBC % Lymphocytes # (Manual) Monocytes # (Manual) Basophils # (Manual) PT INR Heparin Anti-Xa Level POC ABG pO2 ABG pH ABG Hemoglobin ABG Oxyhemoglobin ABG pO2 ABG HCO3 ABG O2 Saturation ABG Base Excess ABG Sodium ABG Potassium ABG Chloride ABG Glucose Oxyhemoglobin Sodium Potassium Chloride Carbon Dioxide BUN Creatinine Glucose POC Glucose 239 H 175 H 309 H Lactic Acid Calcium AST Phosphorus Total Protein Albumin C-Reactive Protein Arterial Blood Glucose Arterial Blood Ionized Calcium Urine WBC (Auto) Crossmatch 02/06/20 02/06/20 02/06/20 04:26 04:27 05:11 WBC RBC Hgb Hct MCHC RDW Plt Count MCH Lymph % (Auto) Lymph # Lymph # (Auto) Seg Neutrophils % Seg Neuts % (Manual) Lymphocytes % (Manual) Seg Neutrophils # Seg Neutrophils # Man Basophils % (Manual) Nucleated RBC % Lymphocytes # (Manual) Monocytes # (Manual) Basophils # (Manual) PT INR Heparin Anti-Xa Level POC ABG pO2 175.3 H 157.2 H ABG pH 7.502 H 7.551 H ABG Hemoglobin 10.8 L 7.3 L ABG Oxyhemoglobin 98.3 H ABG pO2 ABG HCO3 ABG O2 Saturation ABG Base Excess ABG Sodium ABG Potassium 3.3 L ABG Chloride 109.0 H ABG Glucose 148 H Oxyhemoglobin Sodium 148 H Potassium 3.0 L Chloride 107.3 H Carbon Dioxide 33 H BUN 33 H Creatinine 0.5 L Glucose 283 H POC Glucose Lactic Acid Calcium 7.9 L AST Phosphorus Total Protein 3.6 L D Albumin 1.2 L C-Reactive Protein Arterial Blood Glucose 148 H Arterial Blood Ionized Calcium Urine WBC (Auto) Crossmatch 02/06/20 02/06/20 02/06/20 05:40 08:45 11:52 WBC 16.3 H RBC 2.12 L Hgb 6.6 L Hct 20.3 L MCHC RDW 24.4 H Plt Count MCH Lymph % (Auto) Lymph # Lymph # (Auto) Seg Neutrophils % Seg Neuts % (Manual) 98.0 H Lymphocytes % (Manual) 1.0 L Seg Neutrophils # Seg Neutrophils # Man 16.0 H Basophils % (Manual) Nucleated RBC % Lymphocytes # (Manual) 0.2 L Monocytes # (Manual) Basophils # (Manual) PT INR Heparin Anti-Xa Level POC ABG pO2 ABG pH ABG Hemoglobin ABG Oxyhemoglobin ABG pO2 ABG HCO3 ABG O2 Saturation ABG Base Excess ABG Sodium ABG Potassium ABG Chloride ABG Glucose Oxyhemoglobin Sodium Potassium Chloride Carbon Dioxide BUN Creatinine Glucose POC Glucose 347 H 132 H Lactic Acid Calcium AST Phosphorus Total Protein Albumin C-Reactive Protein Arterial Blood Glucose Arterial Blood Ionized Calcium Urine WBC (Auto) Crossmatch 02/06/20 02/07/20 02/07/20 18:26 00:08 05:41 WBC RBC Hgb Hct MCHC RDW Plt Count MCH Lymph % (Auto) Lymph # Lymph # (Auto) Seg Neutrophils % Seg Neuts % (Manual) Lymphocytes % (Manual) Seg Neutrophils # Seg Neutrophils # Man Basophils % (Manual) Nucleated RBC % Lymphocytes # (Manual) Monocytes # (Manual) Basophils # (Manual) PT INR Heparin Anti-Xa Level POC ABG pO2 ABG pH ABG Hemoglobin ABG Oxyhemoglobin ABG pO2 ABG HCO3 ABG O2 Saturation ABG Base Excess ABG Sodium ABG Potassium ABG Chloride ABG Glucose Oxyhemoglobin Sodium Potassium Chloride Carbon Dioxide BUN Creatinine Glucose POC Glucose 114 H 111 H 164 H Lactic Acid Calcium AST Phosphorus Total Protein Albumin C-Reactive Protein Arterial Blood Glucose Arterial Blood Ionized Calcium Urine WBC (Auto) Crossmatch 02/07/20 02/07/20 02/07/20 11:49 17:56 23:27 WBC RBC Hgb Hct MCHC RDW Plt Count MCH Lymph % (Auto) Lymph # Lymph # (Auto) Seg Neutrophils % Seg Neuts % (Manual) Lymphocytes % (Manual) Seg Neutrophils # Seg Neutrophils # Man Basophils % (Manual) Nucleated RBC % Lymphocytes # (Manual) Monocytes # (Manual) Basophils # (Manual) PT INR Heparin Anti-Xa Level POC ABG pO2 ABG pH ABG Hemoglobin ABG Oxyhemoglobin ABG pO2 ABG HCO3 ABG O2 Saturation ABG Base Excess ABG Sodium ABG Potassium ABG Chloride ABG Glucose Oxyhemoglobin Sodium Potassium Chloride Carbon Dioxide BUN Creatinine Glucose POC Glucose 146 H 140 H 164 H Lactic Acid Calcium AST Phosphorus Total Protein Albumin C-Reactive Protein Arterial Blood Glucose Arterial Blood Ionized Calcium Urine WBC (Auto) Crossmatch 02/08/20 02/08/20 02/08/20 03:55 04:46 04:46 WBC RBC 2.30 L Hgb 7.3 L Hct 22.0 L MCHC RDW 23.9 H Plt Count MCH Lymph % (Auto) 8.5 L Lymph # Lymph # (Auto) 0.8 L Seg Neutrophils % 87.6 H Seg Neuts % (Manual) Lymphocytes % (Manual) Seg Neutrophils # 8.7 H Seg Neutrophils # Man Basophils % (Manual) Nucleated RBC % Lymphocytes # (Manual) Monocytes # (Manual) Basophils # (Manual) PT INR Heparin Anti-Xa Level POC ABG pO2 112.8 H ABG pH 7.511 H ABG Hemoglobin 7.8 L ABG Oxyhemoglobin ABG pO2 ABG HCO3 ABG O2 Saturation ABG Base Excess ABG Sodium ABG Potassium 2.9 L ABG Chloride ABG Glucose 112 H Oxyhemoglobin Sodium Potassium 3.1 L Chloride Carbon Dioxide 31 H BUN 29 H Creatinine 0.3 L Glucose 108 H POC Glucose Lactic Acid Calcium AST Phosphorus Total Protein Albumin C-Reactive Protein Arterial Blood Glucose 112 H Arterial Blood Ionized Calcium Urine WBC (Auto) Crossmatch 02/08/20 02/08/20 02/08/20 05:31 10:15 12:10 WBC RBC Hgb Hct MCHC RDW Plt Count MCH Lymph % (Auto) Lymph # Lymph # (Auto) Seg Neutrophils % Seg Neuts % (Manual) Lymphocytes % (Manual) Seg Neutrophils # Seg Neutrophils # Man Basophils % (Manual) Nucleated RBC % Lymphocytes # (Manual) Monocytes # (Manual) Basophils # (Manual) PT INR Heparin Anti-Xa Level POC ABG pO2 ABG pH ABG Hemoglobin ABG Oxyhemoglobin ABG pO2 ABG HCO3 ABG O2 Saturation ABG Base Excess ABG Sodium ABG Potassium ABG Chloride ABG Glucose Oxyhemoglobin Sodium Potassium Chloride Carbon Dioxide BUN Creatinine Glucose POC Glucose 117 H 164 H 170 H Lactic Acid Calcium AST Phosphorus Total Protein Albumin C-Reactive Protein Arterial Blood Glucose Arterial Blood Ionized Calcium Urine WBC (Auto) Crossmatch 02/08/20 02/08/20 02/09/20 12:23 23:50 03:04 WBC RBC Hgb Hct MCHC RDW Plt Count MCH Lymph % (Auto) Lymph # Lymph # (Auto) Seg Neutrophils % Seg Neuts % (Manual) Lymphocytes % (Manual) Seg Neutrophils # Seg Neutrophils # Man Basophils % (Manual) Nucleated RBC % Lymphocytes # (Manual) Monocytes # (Manual) Basophils # (Manual) PT INR Heparin Anti-Xa Level POC ABG pO2 ABG pH 7.501 H ABG Hemoglobin 7.5 L ABG Oxyhemoglobin ABG pO2 ABG HCO3 ABG O2 Saturation ABG Base Excess ABG Sodium ABG Potassium ABG Chloride ABG Glucose 143 H Oxyhemoglobin Sodium Potassium Chloride Carbon Dioxide BUN Creatinine Glucose POC Glucose 164 H 126 H Lactic Acid Calcium AST Phosphorus Total Protein Albumin C-Reactive Protein Arterial Blood Glucose 143 H Arterial Blood Ionized Calcium Urine WBC (Auto) Crossmatch 02/09/20 02/09/20 02/09/20 05:57 08:00 12:39 WBC RBC Hgb Hct MCHC RDW Plt Count MCH Lymph % (Auto) Lymph # Lymph # (Auto) Seg Neutrophils % Seg Neuts % (Manual) Lymphocytes % (Manual) Seg Neutrophils # Seg Neutrophils # Man Basophils % (Manual) Nucleated RBC % Lymphocytes # (Manual) Monocytes # (Manual) Basophils # (Manual) PT INR Heparin Anti-Xa Level POC ABG pO2 ABG pH ABG Hemoglobin ABG Oxyhemoglobin ABG pO2 ABG HCO3 ABG O2 Saturation ABG Base Excess ABG Sodium ABG Potassium ABG Chloride ABG Glucose Oxyhemoglobin Sodium Potassium 3.3 L Chloride Carbon Dioxide 34 H BUN 27 H Creatinine 0.4 L Glucose 127 H POC Glucose 160 H 154 H Lactic Acid Calcium 8.2 L AST Phosphorus Total Protein Albumin C-Reactive Protein Arterial Blood Glucose Arterial Blood Ionized Calcium Urine WBC (Auto) Crossmatch 02/09/20 02/09/20 02/09/20 18:17 23:43 Unknown WBC RBC 2.15 L Hgb 7.0 L Hct 20.8 L MCHC RDW 23.3 H Plt Count MCH 33 H Lymph % (Auto) Lymph # Lymph # (Auto) Seg Neutrophils % Seg Neuts % (Manual) Lymphocytes % (Manual) Seg Neutrophils # Seg Neutrophils # Man Basophils % (Manual) Nucleated RBC % Lymphocytes # (Manual) Monocytes # (Manual) Basophils # (Manual) PT INR Heparin Anti-Xa Level POC ABG pO2 ABG pH ABG Hemoglobin ABG Oxyhemoglobin ABG pO2 ABG HCO3 ABG O2 Saturation ABG Base Excess ABG Sodium ABG Potassium ABG Chloride ABG Glucose Oxyhemoglobin Sodium Potassium Chloride Carbon Dioxide BUN Creatinine Glucose POC Glucose 152 H 177 H Lactic Acid Calcium AST Phosphorus Total Protein Albumin C-Reactive Protein Arterial Blood Glucose Arterial Blood Ionized Calcium Urine WBC (Auto) Crossmatch 02/10/20 02/10/20 02/10/20 04:38 05:24 11:44 WBC RBC Hgb Hct MCHC RDW Plt Count MCH Lymph % (Auto) Lymph # Lymph # (Auto) Seg Neutrophils % Seg Neuts % (Manual) Lymphocytes % (Manual) Seg Neutrophils # Seg Neutrophils # Man Basophils % (Manual) Nucleated RBC % Lymphocytes # (Manual) Monocytes # (Manual) Basophils # (Manual) PT INR Heparin Anti-Xa Level POC ABG pO2 ABG pH 7.502 H ABG Hemoglobin 6.2 L ABG Oxyhemoglobin ABG pO2 136.0 H ABG HCO3 29.3 H ABG O2 Saturation ABG Base Excess 5.7 H ABG Sodium ABG Potassium ABG Chloride ABG Glucose Oxyhemoglobin Sodium Potassium Chloride Carbon Dioxide BUN Creatinine Glucose POC Glucose 113 H 176 H Lactic Acid Calcium AST Phosphorus Total Protein Albumin C-Reactive Protein Arterial Blood Glucose Arterial Blood Ionized Calcium Urine WBC (Auto) Crossmatch 02/10/20 02/11/20 02/11/20 23:42 03:43 04:12 WBC RBC 2.12 L Hgb 6.9 L Hct 20.6 L MCHC RDW 23.4 H Plt Count MCH 33 H Lymph % (Auto) Lymph # Lymph # (Auto) Seg Neutrophils % 84.7 H Seg Neuts % (Manual) 83.0 H Lymphocytes % (Manual) 11.0 L Seg Neutrophils # Seg Neutrophils # Man Basophils % (Manual) Nucleated RBC % Lymphocytes # (Manual) 1.0 L Monocytes # (Manual) Basophils # (Manual) PT INR Heparin Anti-Xa Level POC ABG pO2 112.6 H ABG pH 7.480 H ABG Hemoglobin 7.2 L ABG Oxyhemoglobin ABG pO2 ABG HCO3 ABG O2 Saturation ABG Base Excess ABG Sodium ABG Potassium ABG Chloride ABG Glucose 154 H Oxyhemoglobin Sodium Potassium Chloride Carbon Dioxide BUN Creatinine Glucose POC Glucose 149 H Lactic Acid Calcium AST Phosphorus Total Protein Albumin C-Reactive Protein Arterial Blood Glucose 154 H Arterial Blood Ionized Calcium Urine WBC (Auto) Crossmatch 02/11/20 02/11/20 02/11/20 04:12 05:50 08:22 WBC RBC Hgb Hct MCHC RDW Plt Count MCH Lymph % (Auto) Lymph # Lymph # (Auto) Seg Neutrophils % Seg Neuts % (Manual) Lymphocytes % (Manual) Seg Neutrophils # Seg Neutrophils # Man Basophils % (Manual) Nucleated RBC % Lymphocytes # (Manual) Monocytes # (Manual) Basophils # (Manual) PT INR Heparin Anti-Xa Level POC ABG pO2 ABG pH ABG Hemoglobin ABG Oxyhemoglobin ABG pO2 ABG HCO3 ABG O2 Saturation ABG Base Excess ABG Sodium ABG Potassium ABG Chloride ABG Glucose Oxyhemoglobin Sodium 146 H Potassium Chloride Carbon Dioxide BUN 24 H Creatinine 0.4 L Glucose 168 H POC Glucose 190 H Lactic Acid Calcium 8.0 L AST Phosphorus Total Protein Albumin C-Reactive Protein Arterial Blood Glucose Arterial Blood Ionized Calcium Urine WBC (Auto) Crossmatch See Detail 02/11/20 02/11/20 02/11/20 11:41 17:33 23:40 WBC RBC Hgb Hct MCHC RDW Plt Count MCH Lymph % (Auto) Lymph # Lymph # (Auto) Seg Neutrophils % Seg Neuts % (Manual) Lymphocytes % (Manual) Seg Neutrophils # Seg Neutrophils # Man Basophils % (Manual) Nucleated RBC % Lymphocytes # (Manual) Monocytes # (Manual) Basophils # (Manual) PT INR Heparin Anti-Xa Level POC ABG pO2 ABG pH ABG Hemoglobin ABG Oxyhemoglobin ABG pO2 ABG HCO3 ABG O2 Saturation ABG Base Excess ABG Sodium ABG Potassium ABG Chloride ABG Glucose Oxyhemoglobin Sodium Potassium Chloride Carbon Dioxide BUN Creatinine Glucose POC Glucose 260 H 132 H 54 L Lactic Acid Calcium AST Phosphorus Total Protein Albumin C-Reactive Protein Arterial Blood Glucose Arterial Blood Ionized Calcium Urine WBC (Auto) Crossmatch 02/12/20 02/12/20 02/12/20 05:16 06:45 11:48 WBC RBC Hgb 8.6 L Hct 25.2 L MCHC RDW Plt Count MCH Lymph % (Auto) Lymph # Lymph # (Auto) Seg Neutrophils % Seg Neuts % (Manual) Lymphocytes % (Manual) Seg Neutrophils # Seg Neutrophils # Man Basophils % (Manual) Nucleated RBC % Lymphocytes # (Manual) Monocytes # (Manual) Basophils # (Manual) PT INR Heparin Anti-Xa Level POC ABG pO2 ABG pH ABG Hemoglobin ABG Oxyhemoglobin ABG pO2 ABG HCO3 ABG O2 Saturation ABG Base Excess ABG Sodium ABG Potassium ABG Chloride ABG Glucose Oxyhemoglobin Sodium Potassium Chloride Carbon Dioxide BUN Creatinine Glucose POC Glucose 127 H 163 H Lactic Acid Calcium AST Phosphorus Total Protein Albumin C-Reactive Protein Arterial Blood Glucose Arterial Blood Ionized Calcium Urine WBC (Auto) Crossmatch 02/12/20 02/12/20 02/13/20 17:25 23:53 04:30 WBC RBC Hgb Hct MCHC RDW Plt Count MCH Lymph % (Auto) Lymph # Lymph # (Auto) Seg Neutrophils % Seg Neuts % (Manual) Lymphocytes % (Manual) Seg Neutrophils # Seg Neutrophils # Man Basophils % (Manual) Nucleated RBC % Lymphocytes # (Manual) Monocytes # (Manual) Basophils # (Manual) PT INR Heparin Anti-Xa Level POC ABG pO2 ABG pH 7.463 H ABG Hemoglobin ABG Oxyhemoglobin ABG pO2 98.4 H ABG HCO3 27.7 H ABG O2 Saturation ABG Base Excess 3.7 H ABG Sodium ABG Potassium ABG Chloride ABG Glucose Oxyhemoglobin Sodium Potassium Chloride Carbon Dioxide BUN Creatinine Glucose POC Glucose 152 H 140 H Lactic Acid Calcium AST Phosphorus Total Protein Albumin C-Reactive Protein Arterial Blood Glucose Arterial Blood Ionized Calcium Urine WBC (Auto) Crossmatch 02/13/20 02/13/20 02/13/20 04:45 04:45 05:19 WBC RBC 2.73 L Hgb 8.7 L Hct 25.6 L MCHC RDW 21.3 H Plt Count MCH Lymph % (Auto) 12.0 L Lymph # Lymph # (Auto) 1.0 L Seg Neutrophils % 82.5 H Seg Neuts % (Manual) Lymphocytes % (Manual) Seg Neutrophils # Seg Neutrophils # Man Basophils % (Manual) Nucleated RBC % Lymphocytes # (Manual) Monocytes # (Manual) Basophils # (Manual) PT INR Heparin Anti-Xa Level POC ABG pO2 ABG pH ABG Hemoglobin ABG Oxyhemoglobin ABG pO2 ABG HCO3 ABG O2 Saturation ABG Base Excess ABG Sodium ABG Potassium ABG Chloride ABG Glucose Oxyhemoglobin Sodium Potassium 3.4 L Chloride Carbon Dioxide 31 H BUN 24 H Creatinine 0.3 L Glucose 122 H POC Glucose 127 H Lactic Acid Calcium 8.0 L AST Phosphorus Total Protein 4.2 L Albumin 2.0 L C-Reactive Protein Arterial Blood Glucose Arterial Blood Ionized Calcium Urine WBC (Auto) Crossmatch 02/13/20 02/14/20 02/14/20 23:08 04:26 04:26 WBC RBC 2.74 L Hgb 8.7 L Hct 25.8 L MCHC RDW 21.3 H Plt Count MCH Lymph % (Auto) 13.2 L Lymph # Lymph # (Auto) Seg Neutrophils % 81.4 H Seg Neuts % (Manual) Lymphocytes % (Manual) Seg Neutrophils # 8.4 H Seg Neutrophils # Man Basophils % (Manual) Nucleated RBC % Lymphocytes # (Manual) Monocytes # (Manual) Basophils # (Manual) PT INR Heparin Anti-Xa Level POC ABG pO2 ABG pH ABG Hemoglobin ABG Oxyhemoglobin ABG pO2 ABG HCO3 ABG O2 Saturation ABG Base Excess ABG Sodium ABG Potassium ABG Chloride ABG Glucose Oxyhemoglobin Sodium Potassium 3.4 L Chloride 107.6 H Carbon Dioxide BUN 20 H Creatinine 0.3 L Glucose 170 H POC Glucose 148 H Lactic Acid Calcium 8.2 L AST Phosphorus Total Protein Albumin C-Reactive Protein Arterial Blood Glucose Arterial Blood Ionized Calcium Urine WBC (Auto) Crossmatch 02/14/20 02/14/20 02/14/20 05:05 12:08 17:37 WBC RBC Hgb Hct MCHC RDW Plt Count MCH Lymph % (Auto) Lymph # Lymph # (Auto) Seg Neutrophils % Seg Neuts % (Manual) Lymphocytes % (Manual) Seg Neutrophils # Seg Neutrophils # Man Basophils % (Manual) Nucleated RBC % Lymphocytes # (Manual) Monocytes # (Manual) Basophils # (Manual) PT INR Heparin Anti-Xa Level POC ABG pO2 ABG pH ABG Hemoglobin ABG Oxyhemoglobin ABG pO2 ABG HCO3 ABG O2 Saturation ABG Base Excess ABG Sodium ABG Potassium ABG Chloride ABG Glucose Oxyhemoglobin Sodium Potassium Chloride Carbon Dioxide BUN Creatinine Glucose POC Glucose 182 H 156 H 144 H Lactic Acid Calcium AST Phosphorus Total Protein Albumin C-Reactive Protein Arterial Blood Glucose Arterial Blood Ionized Calcium Urine WBC (Auto) Crossmatch 02/14/20 02/15/20 02/15/20 23:36 05:44 12:11 WBC RBC Hgb Hct MCHC RDW Plt Count MCH Lymph % (Auto) Lymph # Lymph # (Auto) Seg Neutrophils % Seg Neuts % (Manual) Lymphocytes % (Manual) Seg Neutrophils # Seg Neutrophils # Man Basophils % (Manual) Nucleated RBC % Lymphocytes # (Manual) Monocytes # (Manual) Basophils # (Manual) PT INR Heparin Anti-Xa Level POC ABG pO2 ABG pH ABG Hemoglobin ABG Oxyhemoglobin ABG pO2 ABG HCO3 ABG O2 Saturation ABG Base Excess ABG Sodium ABG Potassium ABG Chloride ABG Glucose Oxyhemoglobin Sodium Potassium Chloride Carbon Dioxide BUN Creatinine Glucose POC Glucose 183 H 203 H 140 H Lactic Acid Calcium AST Phosphorus Total Protein Albumin C-Reactive Protein Arterial Blood Glucose Arterial Blood Ionized Calcium Urine WBC (Auto) Crossmatch 02/15/20 02/16/20 02/16/20 17:23 00:12 05:09 WBC RBC Hgb 8.8 L Hct 26.0 L MCHC RDW Plt Count MCH Lymph % (Auto) Lymph # Lymph # (Auto) Seg Neutrophils % Seg Neuts % (Manual) Lymphocytes % (Manual) Seg Neutrophils # Seg Neutrophils # Man Basophils % (Manual) Nucleated RBC % Lymphocytes # (Manual) Monocytes # (Manual) Basophils # (Manual) PT INR Heparin Anti-Xa Level POC ABG pO2 ABG pH ABG Hemoglobin ABG Oxyhemoglobin ABG pO2 ABG HCO3 ABG O2 Saturation ABG Base Excess ABG Sodium ABG Potassium ABG Chloride ABG Glucose Oxyhemoglobin Sodium Potassium Chloride Carbon Dioxide BUN Creatinine Glucose POC Glucose 170 H 133 H Lactic Acid Calcium AST Phosphorus Total Protein Albumin C-Reactive Protein Arterial Blood Glucose Arterial Blood Ionized Calcium Urine WBC (Auto) Crossmatch 02/16/20 02/16/20 02/16/20 05:09 05:21 12:22 WBC RBC Hgb Hct MCHC RDW Plt Count MCH Lymph % (Auto) Lymph # Lymph # (Auto) Seg Neutrophils % Seg Neuts % (Manual) Lymphocytes % (Manual) Seg Neutrophils # Seg Neutrophils # Man Basophils % (Manual) Nucleated RBC % Lymphocytes # (Manual) Monocytes # (Manual) Basophils # (Manual) PT INR Heparin Anti-Xa Level POC ABG pO2 ABG pH ABG Hemoglobin ABG Oxyhemoglobin ABG pO2 ABG HCO3 ABG O2 Saturation ABG Base Excess ABG Sodium ABG Potassium ABG Chloride ABG Glucose Oxyhemoglobin Sodium Potassium Chloride Carbon Dioxide 31 H BUN 18 H Creatinine 0.3 L Glucose 152 H POC Glucose 160 H 138 H Lactic Acid Calcium 7.9 L AST Phosphorus Total Protein Albumin C-Reactive Protein Arterial Blood Glucose Arterial Blood Ionized Calcium Urine WBC (Auto) Crossmatch 02/16/20 02/17/20 02/17/20 16:35 00:01 05:22 WBC RBC Hgb Hct MCHC RDW Plt Count MCH Lymph % (Auto) Lymph # Lymph # (Auto) Seg Neutrophils % Seg Neuts % (Manual) Lymphocytes % (Manual) Seg Neutrophils # Seg Neutrophils # Man Basophils % (Manual) Nucleated RBC % Lymphocytes # (Manual) Monocytes # (Manual) Basophils # (Manual) PT INR Heparin Anti-Xa Level POC ABG pO2 ABG pH ABG Hemoglobin ABG Oxyhemoglobin ABG pO2 ABG HCO3 ABG O2 Saturation ABG Base Excess ABG Sodium ABG Potassium ABG Chloride ABG Glucose Oxyhemoglobin Sodium Potassium Chloride Carbon Dioxide BUN Creatinine Glucose POC Glucose 142 H 173 H 126 H Lactic Acid Calcium AST Phosphorus Total Protein Albumin C-Reactive Protein Arterial Blood Glucose Arterial Blood Ionized Calcium Urine WBC (Auto) Crossmatch 02/17/20 02/17/20 02/18/20 11:35 18:08 00:15 WBC RBC Hgb Hct MCHC RDW Plt Count MCH Lymph % (Auto) Lymph # Lymph # (Auto) Seg Neutrophils % Seg Neuts % (Manual) Lymphocytes % (Manual) Seg Neutrophils # Seg Neutrophils # Man Basophils % (Manual) Nucleated RBC % Lymphocytes # (Manual) Monocytes # (Manual) Basophils # (Manual) PT INR Heparin Anti-Xa Level POC ABG pO2 ABG pH ABG Hemoglobin ABG Oxyhemoglobin ABG pO2 ABG HCO3 ABG O2 Saturation ABG Base Excess ABG Sodium ABG Potassium ABG Chloride ABG Glucose Oxyhemoglobin Sodium Potassium Chloride Carbon Dioxide BUN Creatinine Glucose POC Glucose 113 H 136 H 160 H Lactic Acid Calcium AST Phosphorus Total Protein Albumin C-Reactive Protein Arterial Blood Glucose Arterial Blood Ionized Calcium Urine WBC (Auto) Crossmatch 02/18/20 02/18/20 02/18/20 04:43 04:43 05:30 WBC RBC 3.24 L Hgb Hct MCHC RDW 20.1 H Plt Count 455 H MCH Lymph % (Auto) Lymph # Lymph # (Auto) Seg Neutrophils % Seg Neuts % (Manual) Lymphocytes % (Manual) Seg Neutrophils # Seg Neutrophils # Man Basophils % (Manual) Nucleated RBC % Lymphocytes # (Manual) Monocytes # (Manual) Basophils # (Manual) PT INR Heparin Anti-Xa Level POC ABG pO2 ABG pH ABG Hemoglobin ABG Oxyhemoglobin ABG pO2 ABG HCO3 ABG O2 Saturation ABG Base Excess ABG Sodium ABG Potassium ABG Chloride ABG Glucose Oxyhemoglobin Sodium Potassium Chloride Carbon Dioxide BUN Creatinine 0.3 L Glucose 118 H POC Glucose 139 H Lactic Acid Calcium AST Phosphorus Total Protein Albumin C-Reactive Protein Arterial Blood Glucose Arterial Blood Ionized Calcium Urine WBC (Auto) Crossmatch 02/18/20 02/18/20 02/19/20 11:55 17:51 00:00 WBC RBC Hgb Hct MCHC RDW Plt Count MCH Lymph % (Auto) Lymph # Lymph # (Auto) Seg Neutrophils % Seg Neuts % (Manual) Lymphocytes % (Manual) Seg Neutrophils # Seg Neutrophils # Man Basophils % (Manual) Nucleated RBC % Lymphocytes # (Manual) Monocytes # (Manual) Basophils # (Manual) PT INR Heparin Anti-Xa Level POC ABG pO2 ABG pH ABG Hemoglobin ABG Oxyhemoglobin ABG pO2 ABG HCO3 ABG O2 Saturation ABG Base Excess ABG Sodium ABG Potassium ABG Chloride ABG Glucose Oxyhemoglobin Sodium Potassium Chloride Carbon Dioxide BUN Creatinine Glucose POC Glucose 165 H 139 H 141 H Lactic Acid Calcium AST Phosphorus Total Protein Albumin C-Reactive Protein Arterial Blood Glucose Arterial Blood Ionized Calcium Urine WBC (Auto) Crossmatch 02/19/20 02/19/20 02/20/20 05:45 12:20 05:36 WBC RBC Hgb Hct MCHC RDW Plt Count MCH Lymph % (Auto) Lymph # Lymph # (Auto) Seg Neutrophils % Seg Neuts % (Manual) Lymphocytes % (Manual) Seg Neutrophils # Seg Neutrophils # Man Basophils % (Manual) Nucleated RBC % Lymphocytes # (Manual) Monocytes # (Manual) Basophils # (Manual) PT INR Heparin Anti-Xa Level POC ABG pO2 ABG pH ABG Hemoglobin ABG Oxyhemoglobin ABG pO2 ABG HCO3 ABG O2 Saturation ABG Base Excess ABG Sodium ABG Potassium ABG Chloride ABG Glucose Oxyhemoglobin Sodium Potassium Chloride Carbon Dioxide BUN Creatinine Glucose POC Glucose 169 H 161 H 159 H Lactic Acid Calcium AST Phosphorus Total Protein Albumin C-Reactive Protein Arterial Blood Glucose Arterial Blood Ionized Calcium Urine WBC (Auto) Crossmatch 02/20/20 02/20/20 02/20/20 08:24 08:24 11:54 WBC RBC 2.74 L Hgb 8.7 L Hct 26.4 L MCHC RDW 19.4 H Plt Count MCH Lymph % (Auto) Lymph # Lymph # (Auto) Seg Neutrophils % Seg Neuts % (Manual) 79.0 H Lymphocytes % (Manual) 12.0 L Seg Neutrophils # Seg Neutrophils # Man Basophils % (Manual) 2.0 H Nucleated RBC % Lymphocytes # (Manual) 1.0 L Monocytes # (Manual) Basophils # (Manual) 0.2 H PT INR Heparin Anti-Xa Level POC ABG pO2 ABG pH ABG Hemoglobin ABG Oxyhemoglobin ABG pO2 ABG HCO3 ABG O2 Saturation ABG Base Excess ABG Sodium ABG Potassium ABG Chloride ABG Glucose Oxyhemoglobin Sodium 134 L Potassium Chloride Carbon Dioxide BUN Creatinine 0.3 L Glucose 136 H POC Glucose 172 H Lactic Acid Calcium 8.0 L AST Phosphorus Total Protein Albumin C-Reactive Protein Arterial Blood Glucose Arterial Blood Ionized Calcium Urine WBC (Auto) Crossmatch 02/20/20 02/21/20 02/21/20 23:59 05:34 12:39 WBC RBC Hgb Hct MCHC RDW Plt Count MCH Lymph % (Auto) Lymph # Lymph # (Auto) Seg Neutrophils % Seg Neuts % (Manual) Lymphocytes % (Manual) Seg Neutrophils # Seg Neutrophils # Man Basophils % (Manual) Nucleated RBC % Lymphocytes # (Manual) Monocytes # (Manual) Basophils # (Manual) PT INR Heparin Anti-Xa Level POC ABG pO2 ABG pH ABG Hemoglobin ABG Oxyhemoglobin ABG pO2 ABG HCO3 ABG O2 Saturation ABG Base Excess ABG Sodium ABG Potassium ABG Chloride ABG Glucose Oxyhemoglobin Sodium Potassium Chloride Carbon Dioxide BUN Creatinine Glucose POC Glucose 117 H 159 H 133 H Lactic Acid Calcium AST Phosphorus Total Protein Albumin C-Reactive Protein Arterial Blood Glucose Arterial Blood Ionized Calcium Urine WBC (Auto) Crossmatch 02/22/20 02/22/20 02/22/20 06:14 11:40 17:57 WBC RBC Hgb Hct MCHC RDW Plt Count MCH Lymph % (Auto) Lymph # Lymph # (Auto) Seg Neutrophils % Seg Neuts % (Manual) Lymphocytes % (Manual) Seg Neutrophils # Seg Neutrophils # Man Basophils % (Manual) Nucleated RBC % Lymphocytes # (Manual) Monocytes # (Manual) Basophils # (Manual) PT INR Heparin Anti-Xa Level POC ABG pO2 ABG pH ABG Hemoglobin ABG Oxyhemoglobin ABG pO2 ABG HCO3 ABG O2 Saturation ABG Base Excess ABG Sodium ABG Potassium ABG Chloride ABG Glucose Oxyhemoglobin Sodium Potassium Chloride Carbon Dioxide BUN Creatinine Glucose POC Glucose 139 H 147 H 131 H Lactic Acid Calcium AST Phosphorus Total Protein Albumin C-Reactive Protein Arterial Blood Glucose Arterial Blood Ionized Calcium Urine WBC (Auto) Crossmatch 02/22/20 02/23/20 02/23/20 23:50 03:16 12:07 WBC RBC Hgb Hct MCHC RDW Plt Count MCH Lymph % (Auto) Lymph # Lymph # (Auto) Seg Neutrophils % Seg Neuts % (Manual) Lymphocytes % (Manual) Seg Neutrophils # Seg Neutrophils # Man Basophils % (Manual) Nucleated RBC % Lymphocytes # (Manual) Monocytes # (Manual) Basophils # (Manual) PT INR Heparin Anti-Xa Level POC ABG pO2 ABG pH ABG Hemoglobin ABG Oxyhemoglobin ABG pO2 ABG HCO3 ABG O2 Saturation ABG Base Excess ABG Sodium ABG Potassium ABG Chloride ABG Glucose Oxyhemoglobin Sodium Potassium Chloride Carbon Dioxide BUN Creatinine Glucose POC Glucose 137 H 115 H 134 H Lactic Acid Calcium AST Phosphorus Total Protein Albumin C-Reactive Protein Arterial Blood Glucose Arterial Blood Ionized Calcium Urine WBC (Auto) Crossmatch 1002/23/20 02/24/20 18:29 23:33 04:20 WBC 2.3 L RBC 0.97 L Hgb 3.2 L* Hct 9.2 L* MCHC 35 H RDW 18.6 H Plt Count MCH 33 H Lymph % (Auto) Lymph # Lymph # (Auto) Seg Neutrophils % Seg Neuts % (Manual) Lymphocytes % (Manual) Seg Neutrophils # Seg Neutrophils # Man Basophils % (Manual) Nucleated RBC % Lymphocytes # (Manual) Monocytes # (Manual) Basophils # (Manual) PT INR Heparin Anti-Xa Level POC ABG pO2 ABG pH ABG Hemoglobin ABG Oxyhemoglobin ABG pO2 ABG HCO3 ABG O2 Saturation ABG Base Excess ABG Sodium ABG Potassium ABG Chloride ABG Glucose Oxyhemoglobin Sodium Potassium Chloride Carbon Dioxide BUN Creatinine Glucose POC Glucose 119 H 140 H Lactic Acid Calcium AST Phosphorus Total Protein Albumin C-Reactive Protein Arterial Blood Glucose Arterial Blood Ionized Calcium Urine WBC (Auto) Crossmatch 02/24/20 02/24/20 02/24/20 04:20 06:01 07:02 WBC RBC 2.85 L Hgb 9.1 L D Hct 27.3 L D MCHC RDW 18.8 H Plt Count 538 H D MCH Lymph % (Auto) Lymph # Lymph # (Auto) Seg Neutrophils % Seg Neuts % (Manual) Lymphocytes % (Manual) Seg Neutrophils # Seg Neutrophils # Man Basophils % (Manual) Nucleated RBC % Lymphocytes # (Manual) Monocytes # (Manual) Basophils # (Manual) PT INR Heparin Anti-Xa Level POC ABG pO2 ABG pH ABG Hemoglobin ABG Oxyhemoglobin ABG pO2 ABG HCO3 ABG O2 Saturation ABG Base Excess ABG Sodium ABG Potassium ABG Chloride ABG Glucose Oxyhemoglobin Sodium Potassium Chloride 111.1 H Carbon Dioxide BUN 18 H Creatinine 0.3 L Glucose 115 H POC Glucose 123 H Lactic Acid Calcium 6.6 L D AST Phosphorus Total Protein Albumin C-Reactive Protein Arterial Blood Glucose Arterial Blood Ionized Calcium Urine WBC (Auto) Crossmatch 02/24/20 02/24/20 02/24/20 12:25 13:39 18:22 WBC RBC Hgb Hct MCHC RDW Plt Count MCH Lymph % (Auto) Lymph # Lymph # (Auto) Seg Neutrophils % Seg Neuts % (Manual) Lymphocytes % (Manual) Seg Neutrophils # Seg Neutrophils # Man Basophils % (Manual) Nucleated RBC % Lymphocytes # (Manual) Monocytes # (Manual) Basophils # (Manual) PT INR Heparin Anti-Xa Level POC ABG pO2 ABG pH 7.497 H ABG Hemoglobin 9.9 L ABG Oxyhemoglobin ABG pO2 ABG HCO3 ABG O2 Saturation ABG Base Excess ABG Sodium 135.4 L ABG Potassium ABG Chloride ABG Glucose 133 H Oxyhemoglobin Sodium Potassium Chloride Carbon Dioxide BUN Creatinine Glucose POC Glucose 128 H 128 H Lactic Acid Calcium AST Phosphorus Total Protein Albumin C-Reactive Protein Arterial Blood Glucose 133 H Arterial Blood Ionized Calcium Urine WBC (Auto) Crossmatch 02/25/20 02/25/20 02/25/20 00:01 06:01 12:15 WBC RBC Hgb Hct MCHC RDW Plt Count MCH Lymph % (Auto) Lymph # Lymph # (Auto) Seg Neutrophils % Seg Neuts % (Manual) Lymphocytes % (Manual) Seg Neutrophils # Seg Neutrophils # Man Basophils % (Manual) Nucleated RBC % Lymphocytes # (Manual) Monocytes # (Manual) Basophils # (Manual) PT INR Heparin Anti-Xa Level POC ABG pO2 ABG pH ABG Hemoglobin ABG Oxyhemoglobin ABG pO2 ABG HCO3 ABG O2 Saturation ABG Base Excess ABG Sodium ABG Potassium ABG Chloride ABG Glucose Oxyhemoglobin Sodium Potassium Chloride Carbon Dioxide BUN Creatinine Glucose POC Glucose 131 H 139 H 136 H Lactic Acid Calcium AST Phosphorus Total Protein Albumin C-Reactive Protein Arterial Blood Glucose Arterial Blood Ionized Calcium Urine WBC (Auto) Crossmatch 02/25/20 02/25/20 02/26/20 17:51 20:30 00:13 WBC RBC Hgb Hct MCHC RDW Plt Count MCH Lymph % (Auto) Lymph # Lymph # (Auto) Seg Neutrophils % Seg Neuts % (Manual) Lymphocytes % (Manual) Seg Neutrophils # Seg Neutrophils # Man Basophils % (Manual) Nucleated RBC % Lymphocytes # (Manual) Monocytes # (Manual) Basophils # (Manual) PT INR Heparin Anti-Xa Level POC ABG pO2 ABG pH 7.498 H ABG Hemoglobin 10.7 L ABG Oxyhemoglobin ABG pO2 146.1 H ABG HCO3 ABG O2 Saturation ABG Base Excess ABG Sodium ABG Potassium ABG Chloride ABG Glucose Oxyhemoglobin Sodium Potassium Chloride Carbon Dioxide BUN Creatinine Glucose POC Glucose 115 H 131 H Lactic Acid Calcium AST Phosphorus Total Protein Albumin C-Reactive Protein Arterial Blood Glucose Arterial Blood Ionized Calcium Urine WBC (Auto) Crossmatch 02/26/20 02/26/20 02/26/20 05:30 12:13 18:03 WBC RBC Hgb Hct MCHC RDW Plt Count MCH Lymph % (Auto) Lymph # Lymph # (Auto) Seg Neutrophils % Seg Neuts % (Manual) Lymphocytes % (Manual) Seg Neutrophils # Seg Neutrophils # Man Basophils % (Manual) Nucleated RBC % Lymphocytes # (Manual) Monocytes # (Manual) Basophils # (Manual) PT INR Heparin Anti-Xa Level POC ABG pO2 ABG pH ABG Hemoglobin ABG Oxyhemoglobin ABG pO2 ABG HCO3 ABG O2 Saturation ABG Base Excess ABG Sodium ABG Potassium ABG Chloride ABG Glucose Oxyhemoglobin Sodium Potassium Chloride Carbon Dioxide BUN Creatinine Glucose POC Glucose 129 H 152 H 137 H Lactic Acid Calcium AST Phosphorus Total Protein Albumin C-Reactive Protein Arterial Blood Glucose Arterial Blood Ionized Calcium Urine WBC (Auto) Crossmatch 02/26/20 02/27/20 02/27/20 23:53 05:47 13:49 WBC RBC Hgb Hct MCHC RDW Plt Count MCH Lymph % (Auto) Lymph # Lymph # (Auto) Seg Neutrophils % Seg Neuts % (Manual) Lymphocytes % (Manual) Seg Neutrophils # Seg Neutrophils # Man Basophils % (Manual) Nucleated RBC % Lymphocytes # (Manual) Monocytes # (Manual) Basophils # (Manual) PT INR Heparin Anti-Xa Level POC ABG pO2 ABG pH ABG Hemoglobin ABG Oxyhemoglobin ABG pO2 ABG HCO3 ABG O2 Saturation ABG Base Excess ABG Sodium ABG Potassium ABG Chloride ABG Glucose Oxyhemoglobin Sodium Potassium Chloride Carbon Dioxide BUN Creatinine Glucose POC Glucose 125 H 121 H 135 H Lactic Acid Calcium AST Phosphorus Total Protein Albumin C-Reactive Protein Arterial Blood Glucose Arterial Blood Ionized Calcium Urine WBC (Auto) Crossmatch 02/27/20 02/27/20 02/28/20 17:44 21:21 00:18 WBC RBC Hgb Hct MCHC RDW Plt Count MCH Lymph % (Auto) Lymph # Lymph # (Auto) Seg Neutrophils % Seg Neuts % (Manual) Lymphocytes % (Manual) Seg Neutrophils # Seg Neutrophils # Man Basophils % (Manual) Nucleated RBC % Lymphocytes # (Manual) Monocytes # (Manual) Basophils # (Manual) PT INR Heparin Anti-Xa Level POC ABG pO2 ABG pH 7.489 H ABG Hemoglobin 10.1 L ABG Oxyhemoglobin ABG pO2 116.9 H ABG HCO3 26.4 H ABG O2 Saturation ABG Base Excess 3.1 H ABG Sodium ABG Potassium ABG Chloride ABG Glucose Oxyhemoglobin Sodium Potassium Chloride Carbon Dioxide BUN Creatinine Glucose POC Glucose 112 H 128 H Lactic Acid Calcium AST Phosphorus Total Protein Albumin C-Reactive Protein Arterial Blood Glucose Arterial Blood Ionized Calcium Urine WBC (Auto) Crossmatch 02/28/20 05:39 WBC RBC Hgb Hct MCHC RDW Plt Count MCH Lymph % (Auto) Lymph # Lymph # (Auto) Seg Neutrophils % Seg Neuts % (Manual) Lymphocytes % (Manual) Seg Neutrophils # Seg Neutrophils # Man Basophils % (Manual) Nucleated RBC % Lymphocytes # (Manual) Monocytes # (Manual) Basophils # (Manual) PT INR Heparin Anti-Xa Level POC ABG pO2 ABG pH ABG Hemoglobin ABG Oxyhemoglobin ABG pO2 ABG HCO3 ABG O2 Saturation ABG Base Excess ABG Sodium ABG Potassium ABG Chloride ABG Glucose Oxyhemoglobin Sodium Potassium Chloride Carbon Dioxide BUN Creatinine Glucose POC Glucose 132 H Lactic Acid Calcium AST Phosphorus Total Protein Albumin C-Reactive Protein Arterial Blood Glucose Arterial Blood Ionized Calcium Urine WBC (Auto) Crossmatch Chest x-ray: pending Allied health notes reviewed: nursing
[2020-02-28 14:41] VITALS: BP 137/51
== END 2020-02-28 14:00 | DRG 3 ==
LOC: ED 14:35 → 3A 22:01 → OBSVTOIN 01-09 12:44 → CC1 01-26 21:06 → IMCU 02-03 14:33 → CC1 02-05 00:20
PROVIDERS: ADMIT Internal Medicine Geriatric Medicine; ATTEND Internal Medicine
PROC: 0DH63UZ Insertion of Feeding Device into Stomach, Percutaneous Approach (ICD-10-PCS; 2020-01-14)
PROC: 0JB70ZZ Excision of Back Subcutaneous Tissue and Fascia, Open Approach (ICD-10-PCS; 2020-01-16)
PROC: 0W9B30Z Drainage of Left Pleural Cavity with Drainage Device, Percutaneous Approach (ICD-10-PCS; 2020-01-16)
PROC: 02HV33Z Insertion of Infusion Device into Superior Vena Cava, Percutaneous Approach (ICD-10-PCS; 2020-01-23)
PROC: 5A09457 Assistance with Respiratory Ventilation, 24-96 Consecutive Hours, Continuous Positive Airway Pressure (ICD-10-PCS; 2020-01-26)
PROC: 5A1955Z Respiratory Ventilation, Greater than 96 Consecutive Hours (ICD-10-PCS; 2020-01-28)
PROC: 0BH17EZ Insertion of Endotracheal Airway into Trachea, Via Natural or Artificial Opening (ICD-10-PCS; 2020-01-28)
PROC: 4A033R1 Measurement of Arterial Saturation, Peripheral, Percutaneous Approach (ICD-10-PCS; 2020-01-28)
PROC: 05HY33Z Insertion of Infusion Device into Upper Vein, Percutaneous Approach (ICD-10-PCS; 2020-01-28)
PROC: 0B978ZZ Drainage of Left Main Bronchus, Via Natural or Artificial Opening Endoscopic (ICD-10-PCS; 2020-01-28)
PROC: 0B938ZZ Drainage of Right Main Bronchus, Via Natural or Artificial Opening Endoscopic (ICD-10-PCS; 2020-01-28)
PROC: 5A09457 Assistance with Respiratory Ventilation, 24-96 Consecutive Hours, Continuous Positive Airway Pressure (ICD-10-PCS; 2020-02-02)
PROC: 5A12012 Performance of Cardiac Output, Single, Manual (ICD-10-PCS; 2020-02-05)
PROC: 5A1955Z Respiratory Ventilation, Greater than 96 Consecutive Hours (ICD-10-PCS; 2020-02-05)
PROC: 0BH17EZ Insertion of Endotracheal Airway into Trachea, Via Natural or Artificial Opening (ICD-10-PCS; 2020-02-05)
PROC: 30233N1 Transfusion of Nonautologous Red Blood Cells into Peripheral Vein, Percutaneous Approach (ICD-10-PCS; 2020-02-11)
PROC: 0B113F4 Bypass Trachea to Cutaneous with Tracheostomy Device, Percutaneous Approach (ICD-10-PCS; principal; 2020-02-13)
PROC: 0BJ08ZZ Inspection of Tracheobronchial Tree, Via Natural or Artificial Opening Endoscopic (ICD-10-PCS; 2020-02-13)
DX: A41.89 Other specified sepsis (principal); G93.41 Metabolic encephalopathy; I46.9 Cardiac arrest, cause unspecified; J96.01 Acute respiratory failure with hypoxia; R65.21 Severe sepsis with septic shock; E43 Unspecified severe protein-calorie malnutrition; L89.154 Pressure ulcer of sacral region, stage 4; E87.0 Hyperosmolality and hypernatremia; J93.9 Pneumothorax, unspecified; J94.8 Other specified pleural conditions; N30.00 Acute cystitis without hematuria; G93.1 Anoxic brain damage, not elsewhere classified; M46.28 Osteomyelitis of vertebra, sacral and sacrococcygeal region; Z20.828 Contact with and (suspected) exposure to other viral communicable diseases; E86.9 Volume depletion, unspecified; E83.39 Other disorders of phosphorus metabolism; K29.70 Gastritis, unspecified, without bleeding; K44.9 Diaphragmatic hernia without obstruction or gangrene; F03.90 Unspecified dementia, unspecified severity, without behavioral disturbance, psychotic disturbance, mood disturbance, and anxiety; E11.9 Type 2 diabetes mellitus without complications; Z79.84 Long term (current) use of oral hypoglycemic drugs; Z79.01 Long term (current) use of anticoagulants; Z79.899 Other long term (current) drug therapy; Z68.25 Body mass index [BMI] 25.0-25.9, adult; Z86.711 Personal history of pulmonary embolism
CPT/HCPCS: 36415; 36600; 71045; 71250; 71275; 74018; 74150; 76604; 80048; 80053; 80202; 81001; 82140; 82803; 82805; 82962; 83036; 83735; 84100; 84132; 84145; 84443; 85007; 85014; 85018; 85025; 85027; 85049; 85520; 85610; 85730; 86140; 86850; 86900; 86901; 86920; 87040; 87070; 87075; 87076; 87086; 87116; 87186; 87205; 88304; 88305; 92950; 93005; 93970; 94002; 94003; 94660; 94760; 96361; 96365; 96366; G0378; A6250; A9270-GY; J0171; J0330; J0461; J0690; J0692; J0696; J1170; J1644; J1720; J1815; J1940; J2250; J2370; J2543; J2704; J2710; J3010; J3370; J3475; J3480; J7030; J7040; J7050; J7070; J7120; P9016; P9047; Q9963; Q9967; U0003